=== PATIENT | male | born 1960 | race Caucasian/White ===

== ENCOUNTER 2023-11-24 12:12 | Outpatient (OUT) | payer OTHER, SELFPAY | END 2023-11-24 12:13 | disposition home or self-care (01) | LOC: WC 12:12 | PROVIDERS: PCP Internal Medicine; Visit Provider Podiatrist Foot & Ankle Surgery | DX: E11.621 Type 2 diabetes mellitus with foot ulcer (principal); L97.421 Non-pressure chronic ulcer of left heel and midfoot limited to breakdown of skin; R60.1 Generalized edema | CPT/HCPCS: 29580; G0463 ==

== ENCOUNTER 2024-07-30 11:22 | Emergency (ER) | payer MEDICARE, SELFPAY ==
[2024-07-30 11:30] VITALS: BP 129/71; PULSE 83; TEMP 36.7; O2SAT 99; BMI 33.9
--- NOTE | 2024-07-30 12:08 | ED_ITS ---
HPI HPI - General Adult General Chief complaint: Abdominal Pain Stated complaint: CONSTIPATION Time Seen by Provider: 07/30/24 12:00 Source: patient Mode of arrival: Wheelchair Limitations: physical limitation Limitations comment: L SIDED WEAKNESS, H/O STROKE History of Present Illness HPI narrative: Patient presents to the ED complaining of difficulty voiding and constipation. He was discharged from [facility] yesterday. He was admitted for 7 days and had an indwelling Diaz catheter which was removed by her prior to discharge. He has a history of enlarged prostate. He states that his kidney function is also abnormal. He does not have any information about his allergies or current medications and states that his has the paperwork with her whom he cannot find right now. Related Data Previous Rx's ?Medication ?Instructions ?Recorded cephalexin 250 mg capsule 250 mg PO BID 7 days #14 caps 07/30/24 polyethylene glycol 3350 17 17 g PO DAILY PRN constipation 07/30/24 gram/dose oral powder (Miralax) #510 grams Allergies Allergy/AdvReac Type Severity Reaction Status Date / Time metoprolol Allergy Unknown Unknown Verified 07/30/24 12:14 ciprofloxacin AdvReac Mild itching Verified 07/30/24 12:14 dapagliflozin (From Farxiga) AdvReac Mild itching Verified 07/30/24 12:14 Opioid HPI Opioid Management Most Recent Opioid Data: No Data to Display Review of Systems ROS Status of ROS 10 or more systems reviewed and unremark able except as noted in history and below PFSH PFSH Social History Little interest or pleasure in doing things: not at all Feeling down, depressed, or hopeless: not at all Exam Narrative Exam Narrative: Obese in appearance otherwise nondistressed. Vital signs are stable and are as documented. HEENT exam is normal to inspection. Neck is supple. Lung sounds are clear to auscultation bilaterally with good air entry. Heart has regular rate and rhythm. Abdomen is protuberant with tenderness and fullness over the suprapubic region. Bowel sounds are hypoactive. There is no organomegaly or fluid wave. Lower extremities warm and dry with 1+ pitting edema of the ankles. Constitutional Vital Signs, click to edit/add: Last Vital Signs Temp 98.0 F 07/30/24 11:30 Pulse 83 07/30/24 11:30 Resp 18 07/30/24 11:30 BP 129/71 07/30/24 11:30 Pulse Ox 99 07/30/24 11:30 O2 Del Method Room Air 07/30/24 11:30 Course Vital Signs Vital signs: Vital Signs Temperature 98.0 F 07/30/24 11:30 Pulse Rate 83 07/30/24 11:30 Respiratory Rate 18 07/30/24 11:30 Blood Pressure 129/71 07/30/24 11:30 Pulse Oximetry 99 07/30/24 11:30 Oxygen Delivery Method Room Air 07/30/24 11:30 Temperature 98.0 F 07/30/24 11:30 Pulse Rate 83 07/30/24 11:30 Respiratory Rate 18 07/30/24 11:30 Blood Pressure 129/71 07/30/24 11:30 Pulse Oximetry 99 07/30/24 11:30 Oxygen Delivery Method Room Air 07/30/24 11:30 Medical Decision Making MDM Narrative Medical decision making narrative: Bladder scan revealed large volume in the bladder. A Diaz catheter was inserted and patient instantly put out 6 over 700 cc of clear looking urine. He feels much better. CT scan of the abdomen pelvis is nondiagnostic for acute pathology. I do see a lot of radiodense stool in the colon and rectum. He was administered oral mag citrate followed by fleets enema and has had a large bowel movement and feels much relieved. Blood work showed a normal white count 7.6 with a hemoglobin of 10.8 which is his baseline. BUN is elevated at 75 and the creatinine elevated at 3.35. I was able to access his labs from his recent hospital admission and this is his baseline also. In fact these numbers are slightly better than what he was admitted to the hospital with. Urinalysis did not show signs of infection. I am placing the patient on Keflex to 50 mg twice a day for a week for prophylaxis and on MiraLAX. 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 He sees both of these physicians in [facility]. He may return anytime for worsening symptoms. He was sent home with an indwelling Diaz catheter. Lab Data Labs: Lab Results 07/30/24 07/30/24 Range/Units 13:32 14:00 WBC 7.6 (4.0-11.0) 10^3/uL RBC 3.48 L (4.70-6.10) 10^6/uL Hgb 10.8 L (14.0-18.0) g/dL Hct 32.0 L (42.0-54.0) % MCV 92.0 (80.0-94.0) fL MCH 31.0 (25.9-34.0) pg MCHC 33.8 (29.9-35.2) g/dL RDW 12.9 (11.0-15.0) % Plt Count 275 (150-450) 10^3/uL MPV 10.9 (9.5-13.5) fL Neut % (Auto) 66.2 (43.0-75.0) % Lymph % (Auto) 20.4 L (20.5-60.0) % [place] % (Auto) 10.9 (1.7-12.0) % Eos % (Auto) 1.6 (0.9-7.0) % Baso % (Auto) 0.4 (0.2-2.0) % Neut # (Auto) 5.0 (1.4-6.5) 10^3/uL Lymph # (Auto) 1.6 (1.2-3.8) 10^3/uL [place] # (Auto) 0.8 (0.3-0.8) 10^3/uL Eos # (Auto) 0.1 (0.0-0.7) 10^3/uL Baso # (Auto) 0.0 (0.0-0.1) 10^3/uL Abs Immat Gran (auto) 0.04 H (0.00-0.03) 10^3/uL Imm/Tot Granulo (auto) 0.5 (0.0-0.5) % Sodium 134 L (136-145) mmol/L Potassium 4.6 (3.5-5.1) mmol/L Chloride 94 L (98-107) mmol/L Carbon Dioxide 29.0 (21.0-32.0) mmol/L Anion Gap 15.6 BUN 75.0 H (7.0-18.0) mg/dL Creatinine 3.35 H (0.70-1.30) mg/dL Est GFR ( Amer) 23 L (>=60 mL/min/1.73m^2) Est GFR (Non-Af Amer) 19 L (>=60 mL/min/1.73m^2) BUN/Creatinine Ratio 22.4 Glucose 222 H (74-106) mg/dL Calcium 8.6 (8.5-10.1) mg/dL Total Bilirubin 0.4 (0.2-1.0) mg/dL Direct Bilirubin 0.1 (0.0-0.2) mg/dL AST 22 (15-37) U/L ALT 27 (16-63) U/L Alkaline Phosphatase 90 (46-116) U/L Total Protein 7.5 (6.4-8.2) g/dL Albumin 3.2 L (3.4-5.0) g/dL Globulin 4.3 g/dL Albumin/Globulin Ratio 0.7 Lipase 25.0 (16.0-77.0) U/L Urine Color Lt. yellow (YELLOW) Urine Clarity Clear (CLEAR) Urine pH 5.5 (5.0-9.0) Ur Specific Ralph <=1.005 A (1.005-1.025) Urine Protein Negative (NEG/TRACE) mg/dL Urine Glucose (UA) 500 A (NEGATIVE) mg/dL Urine Ketones Negative (NEGATIVE) mg/dL Urine Occult Blood Negative (NEGATIVE) Urine Nitrite Negative (NEGATIVE) Urine Bilirubin Negative (NEGATIVE) Urine Urobilinogen 0.2 (0.2-1.0) EU/dL Ur Leukocyte Esterase Negative (NEGATIVE) Discharge Plan Discharge Chief Complaint: Abdominal Pain Clinical Impression: Acute urinary retention Constipation Qualifiers: Constipation type: unspecified constipation type Qualified Code(s): K59.00 - Constipation, unspecified Chronic kidney disease Qualifiers: Chronic kidney disease stage: unspecified stage Qualified Code(s): N18.9 - Chronic kidney disease, unspecified Patient Disposition: Home, Self-Care Time of Disposition Decision: 17:04 Condition: Fair Mode of Transportation: Private Vehicle Prescriptions / Home Meds: New cephalexin 250 mg capsule 250 mg PO BID 7 Days Qty: 14 0RF polyethylene glycol 3350 [Miralax] 17 gram/dose powder 17 g PO DAILY PRN (Reason: constipation) Qty: 510 0RF Print Language: Urdu Instructions: Constipation (ED), Chronic Kidney Disease (ED), Diaz Catheter Placement and Care (ED) Additional Instructions: Follow-up with your urologist and gasoline catalyst operator within the next 2 or 3 days. Return anytime for worsening symptoms. Referrals: Kelby Warner DO [Primary Care Provider] - 1 week
[2024-07-30 13:48] LABS: Basophils Percent Auto 0.4 % (0.2-2.0); Eosinophils Absolute Auto 0.1 10^3/uL (0.0-0.7); Eosinophils Percent Auto 1.6 % (0.9-7.0); Hemoglobin 10.8 g/dL (14.0-18.0); Immature Granulocytes Abs Auto 0.04 10^3/uL (0.00-0.03); Immature Granulocytes Pct Auto 0.5 % (0.0-0.5); Lymphocytes Absolute Auto 1.6 10^3/uL (1.2-3.8); Lymphocytes Percent Auto 20.4 % (20.5-60.0); Mean Corpuscular HGB Conc 33.8 g/dL (29.9-35.2); Mean Platelet Volume 10.9 fL (9.5-13.5); Monocytes Absolute Auto 0.8 10^3/uL (0.3-0.8); Monocytes Percent Auto 10.9 % (1.7-12.0); Neutrophils Percent Auto 66.2 % (43.0-75.0); Platelet Count 275 10^3/uL (150-450); Red Blood Count 3.48 10^6/uL (4.70-6.10); Red Cell Distribution Width 12.9 % (11.0-15.0); White Blood Count 7.6 10^3/uL (4.0-11.0)
[2024-07-30 14:02] LABS: Alanine Aminotransferase 27 U/L (16-63); Albumin Globulin Ratio 0.7; Albumin Level 3.2 g/dL (3.4-5.0); Alkaline Phosphatase 90 U/L (46-116); Anion Gap 15.6; Aspartate Amino Transferase 22 U/L (15-37); BUN Creatinine Ratio 22.4; Bilirubin Direct 0.1 mg/dL (0.0-0.2); Bilirubin Total 0.4 mg/dL (0.2-1.0); Calcium 8.6 mg/dL (8.5-10.1); Chloride 94 mmol/L (98-107); Estimated GFR (African America 23 (>=60 mL/min/1.73m^2); Estimated GFR (Non-African Ame 19 (>=60 mL/min/1.73m^2); Globulin 4.3 g/dL; Glucose 222 mg/dL (74-106); Potassium 4.6 mmol/L (3.5-5.1); Sodium 134 mmol/L (136-145); Total Protein 7.5 g/dL (6.4-8.2)
[2024-07-30 14:09] LABS: Bilirubin Urine NEGATIVE (NEGATIVE); Blood Urine NEGATIVE (NEGATIVE); Clarity Urine CLEAR (CLEAR); Color Urine LT. YELLOW (YELLOW); Glucose Urine UA 500 mg/dL (NEGATIVE); Ketones Urine NEGATIVE (NEGATIVE); Leukocyte Esterase Urine NEGATIVE (NEGATIVE); Nitrite Urine NEGATIVE (NEGATIVE); Protein Urine NEGATIVE (NEG/TRACE); Specific Gravity Urine <=1.005 (1.005-1.025); Urobilinogen Urine 0.2 EU/dL (0.2-1.0); pH Urine 5.5 (5.0-9.0)
[2024-07-30 14:10] LABS: Urine Microscopic Indicated NO
[2024-07-30] MEDS: MAGNESIUM CITRATE 296 ML SOLUTION PO (15:27)
== END 2024-07-30 17:18 | disposition home or self-care (01) ==
PROVIDERS: Emergency Provider Emergency Medicine; PCP Internal Medicine
DX: K59.00 Constipation, unspecified (principal); N40.1 Benign prostatic hyperplasia with lower urinary tract symptoms; R33.9 Retention of urine, unspecified; N18.9 Chronic kidney disease, unspecified
CPT/HCPCS: 36415; 51702; 74176; 80048; 80076; 81003; 83690; 85025; 99285

== ENCOUNTER 2024-08-02 12:03 | Emergency (ER) | payer MEDICARE, SELFPAY ==
[2024-08-02 12:05] VITALS: BP 163/71; PULSE 73; TEMP 36.5; O2SAT 100; BMI 33.9
--- NOTE | 2024-08-02 12:11 | ED.GENADUL1 ---
HPI HPI - General Adult General Chief complaint: Urogenital-Male Stated complaint: URINARY RETENTION Time Seen by Provider: 08/02/24 12:04 History of Present Illness HPI narrative: 64-year male presents for pain at his urinary catheter site. This was placed 3 days ago because of urinary retention. The patient was supposed to see his urologist today, about an hour and a half ago, but did not go. He states he was having pain where the catheter enters his penis but that pain is better now. No fever or vomiting. Related Data Previous Rx's ?Medication ?Instructions ?Recorded cephalexin 250 mg capsule 250 mg PO BID 7 days #14 caps 07/30/24 polyethylene glycol 3350 17 17 g PO DAILY PRN constipation 07/30/24 gram/dose oral powder (Miralax) #510 grams solifenacin 5 mg tablet (Vesicare) 5 mg PO DAILY 10 days #10 tabs 08/02/24 Allergies Allergy/AdvReac Type Severity Reaction Status Date / Time metoprolol Allergy Unknown Unknown Verified 07/30/24 12:14 ciprofloxacin AdvReac Mild itching Verified 07/30/24 12:14 dapagliflozin (From Farxiga) AdvReac Mild itching Verified 07/30/24 12:14 Opioid HPI Opioid Management Most Recent Opioid Data: No Data to Display Review of Systems ROS Narrative A ten point review of systems is negative except as noted above. PFSH PFSH Social History Little interest or pleasure in doing things: not at all Feeling down, depressed, or hopeless: not at all Exam Narrative Exam Narrative: Nurses note and vital signs reviewed and patient is not hypoxic. General: The patient appears in no apparent distress. Skin: Warm, dry, no pallor noted. There is no rash noted. Head: Normocephalic, atraumatic Eye: Normal conjunctiva, no drainage Ears, Nose, Mouth, and Throat: oral mucosa is moist. Nares patent. Cardiovascular: Regular Rate and Rhythm Respiratory: Patient is in no distress, no accessory muscle use, lungs are clear to auscultation, no wheezing, rales or rhonchi GI: Soft and nontender. A few bruises are present from insulin injections : Diaz catheter is in place and is draining appropriately. There is no erythema of significance in the genital area. Musculoskeletal: The patient has no evidence of calf tenderness, no pitting edema, symmetrical pulses noted bilaterally Neurological: A&O, normal speech Psychiatric: Cooperative Constitutional Vital Signs, click to edit/add: Last Vital Signs Temp 97.7 F 08/02/24 12:05 Pulse 73 08/02/24 12:05 Resp 20 08/02/24 12:05 BP 163/71 H 08/02/24 12:05 Pulse Ox 100 08/02/24 12:05 O2 Del Method Room Air 08/02/24 12:05 Course Vital Signs Vital signs: Vital Signs Temperature 97.7 F 08/02/24 12:05 Pulse Rate 73 08/02/24 12:05 Respiratory Rate 20 08/02/24 12:05 Blood Pressure 163/71 H 08/02/24 12:05 Pulse Oximetry 100 08/02/24 12:05 Oxygen Delivery Method Room Air 08/02/24 12:05 Temperature 97.7 F 08/02/24 12:05 Pulse Rate 73 08/02/24 12:05 Respiratory Rate 20 08/02/24 12:05 Blood Pressure 163/71 H 08/02/24 12:05 Pulse Oximetry 100 08/02/24 12:05 Oxygen Delivery Method Room Air 08/02/24 12:05 Medical Decision Making MDM Narrative Medical decision making narrative: UA shows small amount of blood but no evidence of UTI. Renal function is improved even from a few days ago. The catheter is functioning normally and he is prescribed Vesicare. He will follow-up with his urologist. Treatment diagnosis and follow-up were discussed with the patient and his . The patient's states his urology appointment is tomorrow. Differential Diagnosis Differential Diagnosis: UTI, bladder spasm Lab Data Lab results reviewed: Yes I reviewed the patient's lab results Labs: Lab Results 08/02/24 08/02/24 Range/Units 12:13 12:18 WBC 6.4 (4.0-11.0) 10^3/uL RBC 3.50 L (4.70-6.10) 10^6/uL Hgb 10.7 L (14.0-18.0) g/dL Hct 32.2 L (42.0-54.0) % MCV 92.0 (80.0-94.0) fL MCH 30.6 (25.9-34.0) pg MCHC 33.2 (29.9-35.2) g/dL RDW 13.2 (11.0-15.0) % Plt Count 313 (150-450) 10^3/uL MPV 10.5 (9.5-13.5) fL Neut % (Auto) 60.2 (43.0-75.0) % Lymph % (Auto) 22.5 (20.5-60.0) % [place] % (Auto) 13.7 H (1.7-12.0) % Eos % (Auto) 2.5 (0.9-7.0) % Baso % (Auto) 0.6 (0.2-2.0) % Neut # (Auto) 3.9 (1.4-6.5) 10^3/uL Lymph # (Auto) 1.4 (1.2-3.8) 10^3/uL [place] # (Auto) 0.9 H (0.3-0.8) 10^3/uL Eos # (Auto) 0.2 (0.0-0.7) 10^3/uL Baso # (Auto) 0.0 (0.0-0.1) 10^3/uL Abs Immat Gran (auto) 0.03 (0.00-0.03) 10^3/uL Imm/Tot Granulo (auto) 0.5 (0.0-0.5) % Sodium 135 L (136-145) mmol/L Potassium 3.7 (3.5-5.1) mmol/L Chloride 99 (98-107) mmol/L Carbon Dioxide 27.6 (21.0-32.0) mmol/L Anion Gap 12.1 BUN 68.0 H (7.0-18.0) mg/dL Creatinine 2.35 H (0.70-1.30) mg/dL Est GFR ( Amer) 34 L (>=60 mL/min/1.73m^2) Est GFR (Non-Af Amer) 28 L (>=60 mL/min/1.73m^2) BUN/Creatinine Ratio 28.9 Glucose 132 H (74-106) mg/dL Calcium 8.4 L (8.5-10.1) mg/dL Urine Color Lt. yellow (YELLOW) Urine Clarity Sl cloudy (CLEAR) Urine pH 7.5 (5.0-9.0) Ur Specific [place] 1.010 (1.005-1.025) Urine Protein Trace (NEG/TRACE) mg/dL Urine Glucose (UA) >=1000 A (NEGATIVE) mg/dL Urine Ketones Negative (NEGATIVE) mg/dL Urine Occult Blood Large A (NEGATIVE) Urine Nitrite Negative (NEGATIVE) Urine Bilirubin Negative (NEGATIVE) Urine Urobilinogen 0.2 (0.2-1.0) EU/dL Ur Leukocyte Esterase Trace A (NEGATIVE) Urine RBC 50-75 A (0-2) #/HPF Urine WBC None seen (NONE SEEN) #/HPF Ur Squamous Epith Cells Rare (NONE/RARE) #/LPF Urine Crystals None seen (None Seen) #/HPF Urine Bacteria Trace A (NONE SEEN) #/HPF Urine Casts None seen (NONE SEEN) #/LPF Urine Mucus None seen (NONE SEEN) Discharge Plan Discharge Chief Complaint: Urogenital-Male Clinical Impression: Bladder spasms Patient Disposition: Home, Self-Care Time of Disposition Decision: 13:21 Condition: Good Mode of Transportation: Private Vehicle Prescriptions / Home Meds: New solifenacin [Vesicare] 5 mg tablet 5 mg PO DAILY 10 Days Qty: 10 0RF No Action cephalexin 250 mg capsule 250 mg PO BID 7 Days Qty: 14 0RF polyethylene glycol 3350 [Miralax] 17 gram/dose powder 17 g PO DAILY PRN (Reason: constipation) Qty: 510 0RF Print Language: Liberian Instructions: Diaz Catheter Placement and Care (ED) Referrals: Kelby Warner DO [Primary Care Provider] - 1 week
--- NOTE | 2024-08-02 12:28 | PC.NURSE ---
pt c/o pain at tip of penis, area appears wnl with no swelling or redness.
[2024-08-02 12:40] LABS: Basophils Percent Auto 0.6 % (0.2-2.0); Eosinophils Absolute Auto 0.2 10^3/uL (0.0-0.7); Eosinophils Percent Auto 2.5 % (0.9-7.0); Hematocrit 32.2 % (42.0-54.0); Hemoglobin 10.7 g/dL (14.0-18.0); Immature Granulocytes Abs Auto 0.03 10^3/uL (0.00-0.03); Immature Granulocytes Pct Auto 0.5 % (0.0-0.5); Lymphocytes Absolute Auto 1.4 10^3/uL (1.2-3.8); Lymphocytes Percent Auto 22.5 % (20.5-60.0); Mean Corpuscular HGB Conc 33.2 g/dL (29.9-35.2); Mean Corpuscular Hemoglobin 30.6 pg (25.9-34.0); Mean Platelet Volume 10.5 fL (9.5-13.5); Monocytes Absolute Auto 0.9 10^3/uL (0.3-0.8); Monocytes Percent Auto 13.7 % (1.7-12.0); Neutrophils Absolute Auto 3.9 10^3/uL (1.4-6.5); Neutrophils Percent Auto 60.2 % (43.0-75.0); Platelet Count 313 10^3/uL (150-450); Red Cell Distribution Width 13.2 % (11.0-15.0); White Blood Count 6.4 10^3/uL (4.0-11.0)
[2024-08-02 12:44] LABS: Anion Gap 12.1; BUN Creatinine Ratio 28.9; Calcium 8.4 mg/dL (8.5-10.1); Carbon Dioxide 27.6 mmol/L (21.0-32.0); Chloride 99 mmol/L (98-107); Estimated GFR (African America 34 (>=60 mL/min/1.73m^2); Estimated GFR (Non-African Ame 28 (>=60 mL/min/1.73m^2); Glucose 132 mg/dL (74-106); Potassium 3.7 mmol/L (3.5-5.1); Sodium 135 mmol/L (136-145)
[2024-08-02 12:48] LABS: Bilirubin Urine NEGATIVE (NEGATIVE); Blood Urine LARGE (NEGATIVE); Clarity Urine SL CLOUDY (CLEAR); Color Urine LT. YELLOW (YELLOW); Glucose Urine UA >=1000 mg/dL (NEGATIVE); Ketones Urine NEGATIVE (NEGATIVE); Leukocyte Esterase Urine TRACE (NEGATIVE); Nitrite Urine NEGATIVE (NEGATIVE); Protein Urine TRACE mg/dL (NEG/TRACE); Urobilinogen Urine 0.2 EU/dL (0.2-1.0); pH Urine 7.5 (5.0-9.0)
[2024-08-02 13:13] LABS: Bacteria Urine TRACE #/HPF (NONE SEEN); Cast Seen? NONE SEEN #/LPF (NONE SEEN); Crystals Seen? None Seen #/HPF (None Seen); Mucus Urine NONE SEEN (NONE SEEN); RBC Urine 50-75 #/HPF (0-2); Squamous Epithelial Cell Urine RARE #/LPF (NONE/RARE); WBC Urine NONE SEEN #/HPF (NONE SEEN)
[2024-08-02 13:50] VITALS: BP 124/49; PULSE 68; O2SAT 100
== END 2024-08-02 13:51 | disposition home or self-care (01) ==
PROVIDERS: Emergency Provider Emergency Medicine; PCP Internal Medicine
DX: N32.89 Other specified disorders of bladder (principal); R33.9 Retention of urine, unspecified
CPT/HCPCS: 36415; 51798; 80048; 81001; 85025; 99283

== ENCOUNTER 2024-08-31 13:00 | Outpatient (RCR) | payer MEDICARE, SELFPAY | END 2024-09-30 08:05 | disposition home or self-care (01) | LOC: PT 13:00 | PROVIDERS: PCP Internal Medicine; Visit Provider Internal Medicine | DX: M47.892 Other spondylosis, cervical region (principal); M54.12 Radiculopathy, cervical region; M62.81 Muscle weakness (generalized) | CPT/HCPCS: 97110; 97162; 97530 ==

== ENCOUNTER 2024-11-15 14:00 | Emergency (ER) | payer MEDICARE, SELFPAY ==
--- OUTSIDE RECORDS SUMMARY | 2024-08-29 05:56 | XMS_ITS | Encounter Summary ---
Author Name [facility] Address [address] [place] [address] Care Team Providers Care Teacher Home Therapy Name Role Phone CYNDI MIGUELEL Primary Care Provider Unavailabl e Insurance Providers: All historical and current Section Date Range: From patient's date of to the date document was created. This section includes the names of all active insurance providers for the patient. Insurance Provider Type of Coverage Plan Name Start of Policy Coverage End of Policy Coverage Group Number Member ID Insurance Provider's Telephone Number Policy Martinez's Name Patient's Relationship to Policy Martinez Selected Encounter This section includes the information on record at [facility] for the Encounter. Date/Time Encounter Type Encounter Description Reason Pro vider Source Aug 29, 2024 09:56 AM Outpatient Encounter ADMIN PAT ACTIVTIES (MASNONCT) I[facility] Encounter Template Text not used by [facility] Plan of Treatment: Future Appointments (+ 6 months) and Future Tests (+/- 45 days) The Plan of Treatment section includes future care activities for the patient from all [facility] treatment[facility]ilities. This section includes future appointments and future orders which are active, pending or scheduled. Active, Pending, and Scheduled Orders This section includes a listing of several types of active, pending, and scheduled orders, including clinic medications orders, diagnostic test orders, procedure orders and consult orders; where the start date of the order is 45 days before the date of the Encounter or 45 days after the date of theEncounter. The data comes from all [place] treatment facilities. Test Date/Time Test Type Test Details Facility Name September 25, 2024 12:00 AM Laboratory - Chemi stry Order COMPREHENSIVE METABOLIC PANEL LT GREEN PLASMA SP [facility] September 25, 2024 12:00 AM Laboratory - Chemi stry Order LIPID PROFILE LT GREEN PLASMA SP [facility] September 25, 2024 12:00 AM Laboratory - Chemi stry Order CBC LAVENDER BLOOD SP [facility] September 25, 2024 12:00 AM Laboratory - Chemi stry Order TSH LT GREEN PLASMA SP [facility] September 25, 2024 12:00 AM Laboratory - Chemi stry Order VITAMIN D (TOTAL) GOLD TOP SERUM SP [facility] September 25, 2024 12:00 AM Laboratory - Chemi stry Order URINALYSIS URINE SP [facility] September 25, 2024 12:00 AM Laboratory - Chemi stry Order MICROALBUMIN/CREATININE RATIO PANEL URINE, RANDOM SP [facility] September 25, 2024 12:00 AM Laboratory - Chemi stry Order HEMOGLOBIN A1C LAVENDER BLOOD SP [facility] Social History: Smoking Status (Most current) and Tobacco Use (All prior to encounter date) This section includes the most current, and the historical, smoking and tobacco- related health factors from the [place] facility where the Encounter took place. Current Smoking Status This section includes the most current smoking, or tobacco-related health factor, from the [place] facility where the Encounter took place. Date/Time Current Smoking Status Comment Facil ity Nov 12, 2022 02:00 PM VA-TOBACCO NEVER USED [facility] Encounter Notes: All associated encounter notes This section contains the clinical notes associated to the Encounter. Date/Time Encounter Note(s) Provider Source Aug 29, 2024 09:56 AM ADMINISTRATIVE NOT E: LOCAL TITLE: SCHEDULING CONTACT ATTEMPT NOTE STANDARD TITLE: ADMINISTRATIVE NOTE DATE OF NOTE: AUG 29, 2024@09:56 ENTRY DATE: AUG 29, 2024@09:57:08 AUTHOR: PENG VANEGAS EXP COSIGNER: URGENCY: STATUS: COMPLETED A scheduling contact attempt was made on 08/29/2024 via telephone for a Return to Clinic Order appointment in the Primary Care clinic. The patient declined to schedule. /lion/ PENG VANEGAS ADVANCED MSA Signed: 08/29/2024 09:57 PENG VANEGAS
--- OUTSIDE RECORDS SUMMARY | 2024-10-14 13:00 | XMS_ITS ---
Author Organization [facility] Address [address] [place] [address] Care Team Providers Care Document Advisor Name Role Phone christine rae Primary Care Provider Harrison Mcdermott Unavailable [phone] Encounters Encounter Location Date Provider Diagnosis [facility] [address] [place] [address] 10/14/2024 Harrison Beltran Plan Of Treatment Next Appt Details Provider Name:Pankajbailey Ignacio, 12/09/2024 02:30:00 PM, [address] [facility] [address], [place], [address], Progress Notes * Sivakumar KERROB:1960 (64 yo M)Acc No.[id number]:10/14/2024 Progress Notes Patient: Piotr ROBERTS Provider: Winston Beltran DO :1960 A ge:64 Y S ex:Male Date:10/14/2024 Address:[address] [place] [address] [address] [facility] Pcp:christine rae Subjective: * Chief Complaints: * * Medical History: Objective: * Vitals: Assessment: Plan: * Treatment: * * Electronic signature of Verona Beltran DO on 11/15/2024 at 02:12 PM EDT Sign off status: Pending * Provider: Winston Beltran DO Date: 0 10/14/2024 Generated for Amanda rogers/Falashellg/eTransmitting on: 0 11/15/2024 02:12 PM EDT
--- OUTSIDE RECORDS SUMMARY | 2024-11-09 08:25 | XMS_ITS | Continuity of Care Document ---
Author Name [facility] Organization [facility] Care Team Providers Care Aed Trainer Name Role Phone [facility] Unavailable Unavailable Problems Combined list of problems from Department of [facility] and [facility] facilities. It does not include entries that were removed or entered in error. Problem Status Onset Date Problem Type Date of Resolution Comments Source Chronic kidney disease stage 3 Active Condition [facility] Coronary artery disease Active Condition Nov 12, 2022 Entered By: KOLTON GRIGSBY R Comment: s/p alexa x 3 [facility] Diabetes mellitus Active Condition [facility] Essential hypertension Active Condition [facility] Exposure to Potentially Hazardous Substance (SCT [id number]) Active Condition LUMA Lucero [facility] History of cerebrovascular accident Active Condition [facility] Hyperlipidemia Active Condition [facility] Lower urinary tract symptoms due to benign prostatic hypertrophy Active Condition [facility] Diagnosis: ICD-10-CM Z71.9 Counseling, unspecified Active Diagnosis [facility] Allergies, Adverse Reactions, Alerts Combined list of allergies from Department of Defense and [facility] facilities. It does not include entries that were removed or entered in error. Substance Category Reaction Severity Reaction type Status Date Reported Comments Source CIPROFLOXACIN Propensity to adverse reactions to drug (finding) Tongue swelling MILD active 3 [facility] Immunizations Combined list of available immunizations from the Department of Defense and Veterans Affairs facilities. Immunization Series Date Given Administered By Site Reaction Lot Number CVX Code Drug Clinical Pharmacy Specialist Status Comments Source TDAP 2022 JILL RAMEY RIGHT DELTO ID [id number] complet ed [facility]MIN[facility] [place], Patient tolerated injection well. [facility] Encounters Combined list of: 1) Encounters from Department of Veterans Affairs facilities going backup to the last 18 months, not all [place] inpatient encounters are included; 2) Encounters from the Department of Defense facilities going backup to 280 months. Location Location Details Encounter Type Encounter Number Reason For Visit Attending Provider ADM Date DC Date Status Disposition Source [facility] HC PRO PHONE CALL 21-30 MIN [id number] Diagnos is: ICD-10- CM Z71.9 Information Technology Security Manager ing, unspeci JONA Mahan K 06/11 [facility] Outpatient Encounter [id number] 11/05 [facility] Outpatient Encounter [id number] 11/15 [facility] Outpatient Encounter [id number] 08/18 [facility] Outpatient Encounter [id number] 08/29 MIREILLE Thompson [facility] Social History Combined list of available smoking, tobacco, and other social history from Department of Defense and Veterans Affairs facilities. Social History Type Response Date Comment Sourc e Tobacco smoking status [facility] NEVER USED 11/13/19 23 [facility] Plan of Care List of future care activities from Department of Veterans Affairs facilities. Additional future care activities may be listed in the Assessment and Plan section. Date/Time Care Activity Care Activity Detail Facili ty 09/25/2024 Laboratory - Chemistry Order COM PREHENSIVE METABOLIC PANEL LT GREEN PLASMA SP ONCE [facility]
--- OUTSIDE RECORDS SUMMARY | 2024-11-11 10:15 | XMS_ITS ---
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 Inspector Name Role Phone kyra christine Primary Care Provider Harrison Mcdermott Unavailable [phone] Hallie Carranza Unavailable [phone] REASON FOR VISIT Telehealth visit Medications Medication SIG (Take, Route, Frequency, Duration) Notes Start Date End Date Status Spironolactone 50 mg TAKE ONE TABLET BY MOUTH DAILY for 30 Active Plavix 75 MG 1 tablet Orally Once a day Active Pravastatin Sodium 10 MG 1 tablet Orally Once a day Active Magnesium 250 MG 1 tablet with a meal Orally Once a day for 30 day(s) Not-Taking Magnesium Oxide 400 MG 1 tablet as neede d Orally Once a day Not-Taking Carvedilol 12.5 MG 1 tablet with food Orally Twice a day Active Lasix 40 MG 1 tablet Orally twic e a day for 30 days Active Losartan Potassium 25 MG 1 tablet Orally Once a day for 90 days Active HumaLOG KwikPen 100 UNIT/ML as directed Subcutaneous Active Jardiance 25 MG 0.5 tablet in the morning Orally Once a day for 30 days Active Allopurinol 100 MG 1 tablet Orally twic e a day for 90 days Active Aspirin 81 81 MG 1 tablet Orally Once a day Active traMADol HCl 50 MG 1 tablet as needed Orally every 8 hours Not-Taking Magnesium Gluconate 500 (27 Mg) MG 1 tablet Orally Once a day Active Zinc 50 MG 1 tablet Orally Once a day Not-Taking Protonix 20 MG 1 tablet 1/2 to 1 hour before morning meal Orally Once a day for 30 day(s) Not-Taking Sensipar 60 MG 1 tablet with food o r after a meal Orally 5 times a week for 90 days Not-Taking Pepcid 20 MG 1 tablet at bedtime Orally Once a day Not-Taking Probiotic Not-Taking Nitroglycerin 0.4 MG as directed Sublingual Not-Taking Losartan Potassium-HCTZ 50-12.5 MG 1 tablet Orally Once a day for 30 days 12/12/2022 Not-Taking Flomax 0.4 MG 1 capsule Orally twice a day Not-Taking Multiple Vitamins-Minerals - as directed Orally No t-Taking metOLazone 2.5 MG 1 tablet Orally Thre e times a week for 30 days 07/15/2024 11/12/2024 Not-Taking MiraLax 17 GM 1 packet mixed with 8 ounces of fluid Orally Once a day Not-Taking Entresto 24-26 MG 1 tablet Orally Twic e a day for 30 day(s) Not-Taking Calcitriol 0.5 MCG 1 capsule Orally Onc e a day for 30 day(s) Not-Taking Cholecalciferol 125 MCG (5000 UT) as directed Orally Not-Takin g Ascorbic Acid 1000 MG 1 tablet Orally On ce a day Not-Taking Bumetanide 2 MG 1 tablet Orally Twic e a day for 90 days 07/15/2024 01/11/2025 Not-Taking Toujeo SoloStar 300 UNIT/ML as directed Subcutaneous twice a day 30u Active Vitamin C 500 MG as directed Orally Active Alpha Lipoic Acid 200 MG 1 capsule Orall y Once a day 600 mg Not-Taking Vitamin B12 100 MCG 1 tablet Orally once a day Active Encounters Encounter Location Date Provider Diagnosis [address] 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 Will continue with Aldactone 50mg, Coreg 12.5mg BID, Losartan 25mg, and Lasix 40mg BID. Continue Jardiance 12.5mg daily. 09/23/2024- - Resolved NEO and resumed Aldactone 50mg, Coreg 12.5mg BID; Flomax 0.4mg BID, Losartan 25mg from 100mg dosage; resumed Lasix 40mg BID from 80mg and resumed Jardiance 12.5mg dosage with resolved AKI__from 25mg daily. . 08/26/24- - - -Resolved NEO and resumed Losartan 25mg home 100mg dosage; resumed Lasix 40mg home dosage of 80mg and resumed Jardiance 10mg dosage with resolved NEO. 07/08/24- - Patient is normotensive in office with readings of 122/72. Patient reports normotensive readings at home. Will continue with coreg 6.25mg BID, entresto 24-26mg BID, lasix 80mg BID, losartan 100mg daily and aldactone 50mg daily. Will start metolazone 5mg x 3 days. Continue to monitor blood pressure at home. 07/01/24- - Patient is normotensive in office with readings of 137/68. Patient reports normotensive readings at home. Will continue with coreg 6.25mg BID, entresto 24-26mg BID, lasix 80mg BID, losartan 100mg daily and aldactone 50mg daily. Will start metolazone 5mg x 3 days. Continue to monitor blood pressure at home. 05/13/24- - Patient is normotensive in office with readings of 120/56. Patient reports normotensive readings at home. Will continue with present treatment. 04/08/24__- Patient is normotensive in office with readings of 135/61. Patient reports normotensive readings at home. Will continue with Entresto 24/26mg daily__from cardiology and off his Losartan 100mg daily but continue Lasix 80mg BID. 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 . 01/01/24__- Patient is normotensive in office with readings of 132/63. Patient reports normotensive readings at home. Will continue with Losartan 100mg daily and Lasix 80mg daily. 10/02/23 -n office blood pressure 129/82. Normotensive home blood pressure readings. Plan to continue with Losartan 100mg daily and Lasix 80mg daily. 07/03/23__In office blood pressure 148/84. Normotensive home blood pressure readings. Plan to increase his Losartan from 50mg to 100mg daily and Lasix 80mg daily. 05/15/23__In office blood pressure 130/62 . Continue losartan 50 mg daily. Will stop HCTZ due to hypercalcemia. On discontinuation of the hydrochlorothiazide, plan to increase patient's Lasix to 80 mg daily and fluid restriction to 48 ounces a day. 03/20/23__In office blood pressure 189/84. Manual 142/82. Patient has discontinued lasix due to side effects. Will continue losartan 50 mg and restart HCTZ and increase to 25 mg daily. Advised to monitor home blood pressue at home. 02/13/23__-In office blood pressure 123/68. Manual 115/62. Home blood pressure logs are reviewed and uncertain of the validity. Will continue losartan 50 mg daily. Discontinue HCTZ 12.5 mg and increase Lasix 40 mg daily due to 2+ pitting edema to the bilateral lower extremities. Continue to monitor home blood pressure readings. 12/12/22____-Blood pressure readings in the office today was 152/83. Plan to initiate treatment with use of Losartan Hydrochlorothiazide- 5012.5mg 1 tablet daily along with reduction in patient's Lasix to 20mg and discontinue with Amlodipine 5mg. 11/14/22____Blood pressure readings in the office today was 138/68. Goal recommendations of less than 2gms a day sodium diet. Patient education on the significance of management of hypertension, and its effect on sustaining or contributing to the decline in the residual renal function. Monitor home blood pressure, with goal range of systolic readings of 110 to 130 and diastolic readings of 60 to 80. 11/11/2024 Primary hyperparathyroidism (ICD-10 - E21.0) 11/11/2024- - Ca 10.0, iPTH 164.0. Pt's reports patient did not scheduled appt with Dr. Ferrara when his office called because they have been too busy. Encouraged to call office back and schedule consult after education provided. Plan to continue to closely trend Ca level as patient is no longer on sensipar since NEO. Continue to avoid all calcium supplementation and vitamin D as well as follow a low Ca diet. 09/23/2024- - Ca 11.0, iPTH 120. Refer to Dr. Ferrara for Parathyroidectomy. He failed Sensipar and developed NEO from it. 08/26/24- - - - Resolved severe admission NEO secondary to pre-renal azotemia and Sensipar induced ATN. Patient with a presenting Cr of >4, and uremic symptoms. Labs for today's visit of UPCR, iPTH, and Uric acid not calculated for visit. Ca 10.5, Alb 4.2, Phos 2.4. Will disocntinue with Calcitriol 0.25mcg 3x/week as calcium level was increased. 07/08/24- - - Ca 10.5 iPTH __no lab__. Will decrease sensipar to 60mg 5/week. Contiue off calcitriol at this time. 07/01/24- - - Ca 8.4, iPTH 182. Will decrease sensipar to 60mg 5/week. Contiue off calcitriol at this time. 05/13/24- - -iPTH 166.0, Ca 9.6. Plan to increase frequency of Sensipar 30mg daily to 60mg daily for better management of his iPTH. Disccontinue with Calcitriol 0.25mcg 4x/week 04/08/24____-iPTH 206.0, Ca 11.0. Plan to increase frequency of Sensipar 30mg daily to 60mg daily for better management of his iPTH. Disccontinue with Calcitriol 0.25mcg 4x/week 01/01/24____IPTH 242.0, Ca 10.4. Plan to increase frequency of Sensipar 30mg daily to 60mg daily for better management ofhis iPTH. Continue with Calcitriol 0.25mcg 4x/week. 270lbs from 289bs weight today and patient same weight as last 3 months. 10/02/2023____IPTH 174, Ca 9.4. Plan to increase frequency of Sensipar 30mg from 5x/week to daily, and continue with Calcitriol 0.25mcg but increase frequency from 2X to 4x/week. 289bs weight today and patient same weight as last 3 months. Patient with cellulitis on presentation today with skin abrasion on his left foot and plan to start Keflex 500mg BID for 7days. Instructions to clean site withvbetadine and follow up with his PCP. . 07/03/23__IPTH 117.9, Ca 8.7. Continue Sensipar 30mg but reduce from daily to 5x/week and start Calcitriol 0.25mcg 2X week. 36lbs weight gain from his initial evaluation weight. 05/15/23__iPTH 225.0, Ca 11.0. Denies use of Sensipar due to side effects. Was on Lasix 60mg and HCTZ 25mg daily__- medication reconciliation and discussed with the patient the significance of improved management of the hypercalcemia due to the high risk of atherosclerotic disease, nephrolithiasis, and eventual risk of renal failure with hypercalcemia. Medication reconciliation and plan to discontinue the hydrochlorothiazide increase patient's Lasix to 80 mg resume Sensipar 30 mg daily reevaluate patient's intact PTH and calcium level in the next 6 weeks. 03/20/23__iPTH 202.5, Ca 10.4. Admits that he stopped taking the Sensipar due to excessive diarrhea occuring after the first dose. 02/13/23____Dscussed with patient recomendation for treatment with Sensipar 30mg daily and re-eal in 4 weeks. His iPTH level is 151 today in office. 12/12/22____ Differential for elevated iPTH level of 164 with a Ca level of 11.1. Etiology of hypercalcemia could be from FHH; primary hPTH; [place] or malignancy. Plan to obtain a nuclear scan of patient's parathyroid glands to determine hyperactivity of the glands. Plan also to monitor her urine electrolyte level to determine patient's urine calcium excretion. Treatment at this time with complete discontinuation of any vitamin D, dietary education of a low calcium, and plan to initiate treatment with Sensipar on return to clinic after diagnostic studies. 11/11/2024 Electrolyte abnormality (ICD-10 - E87.8) 11/11/2024- - Na 137, K 4.7, Cl 102, CO2 23, Phos 3.2, Ca 10.0, Mg 1.9. Continue with Allopurinol 200mg daily, lasix 40mg BID, magnesium 400mg daily, and aldactone 50mg daily. Continue to follow a low Ca diet. 09/23/2024- - Na 135, K 4.5, Cl 99, CO2 24, Phos 2.5, Ca 11.0, Mg 2.2. Continue with Allopurinol 200mg daily, lasix 40mg BID, magnesium 400mg daily, and aldactone 50mg daily 08/26/24- - - -Na 137, K 4.9, Cl 103, CO2 24, Phos 2.4, ca 10.5, Glu 147. 08/26/24- Mg 2.2, Na 137, K 4.9, Cl 103, Co2 24, Ca 10.5, Alb 4.2, Phos 2.4. No uric acid with visit. Continue with allopurinol 200mg daily, lasix 80mg BID, magnesium 400mg daily, and aldactone 50mg daily 07/01/24- - Mg 1.7, Ca 8.4, albumin 4.0, Phos 3.1, Na 136, K 4.7, Cl 99, Co2 26, Uric acid 7.0. Will continue with allopurinol 200mg daily, lasix 80mg BID, magnesium 400mg daily, and aldactone 50mg daily .Will decrease sensipar to 60mg 5/week and start metolazone 5mg x 3 days to assist with hypervolemia. 05/13/24- -Na 139, K+ 3.4, Cl 95, Co2 29, Ca 9.6, Phos 2.1, Mg 1.6, and uric acid 13.2. Encourage 2 gram sodium diet, higher dietary phosphorus and continue allopurinol 100mg daily. 04/08/24- - Na 136, K+ 3.7 Cl 98 Co2 27 Ca 11.0 Phos 1.8 Mg 1.6 and uric acid 7.6. Encourage 2 gram sodium diet, higher dietary phosphorus and continue allopurinol 100mg daily. 01/01/24- - Na 138, K+ 4.4 Cl 102 Co2 25 Ca 10.4 Phos 2.4 Mg 2.1 and uric acid 5.9. Encourage 2 gram sodium diet, higher dietary phosphorus and continue allopurinol 100mg daily. 10/02/2023- Na 136, K+ 4.2 Cl 101 Co2 24 Ca 9.4 Phos 2.5 Mg 2 and uric acid 6.7. Encourage 2 gram sodium diet, higher dietary phosphorus and continue allopurinol 100mg daily. 07/03/23- Na 135, K+ 4.3, Cl 100, Co2 25, Ca 8.7, Phos 2.5, Mg 1.9 and uric acid 6.8. Encourage 2 gram sodium diet, higher dietary phosphorus and continue allopurinol 100mg daily. 05/15/23- Uric acid 10.0. Start allopurinol 100mg daily 11/11/2024 CHF (congestive hear t failure) (ICD-10 - I50.9) 11/11/2024- - Denies increase to BLE edema. Reports weight today at hospital of 260lbs. Will continue lasix 40mg BID and Aldactone 50mg daily. K 4.7 09/23/2024- - - +2/4 LE edema in BLE. Will continue lasix 40mg BID, and Aldactone 50mg daily. K 4.5. 08/26/24- - - - +2/4 LE edema in BLE. Will continue lasix 80mg BID, entresto 24-26mg BID, and aldactone 50mg daily. K 4.7. 07/01/24- - +2 edema in BLE. Will continue lasix 80mg BID, entresto 24-26mg BID, and aldactone 50mg daily. K 4.7, will start metolazone 5mg daily x 3 days and repeat labs and follow up in 1 week. 05/13/24__-Continue lasix 80 mg daily, FR 48 ounces and daily weight. Patient to take Lasix 80mg BID for better edema management. 04/08/24__-Continue lasix 80 mg daily, FR 48 ounces and daily weight. Patient to take Lasix 80mg BID for better edema management. 01/01/24____Continue lasix 80 mg daily, FR 48 ounces and daily weight. Patient to take Lasix 80mg and 40mg for weight above 280lbs. 10/02/2023__Continue lasix 80 mg daily, FR 48 ounces and daily weight. Patient to take Lasix 80mg and 40mg for weight above 280lbs. 07/03/23__Continue lasix 80 mg daily, FR 48 ounces and daily weight. Patient to take Lasix 80mg and 40mg for weight above 280lbs. 05/15/23____ Will stop HCTZ due to hypercalcemia. Failed attempt with lasix. ncrease patient's Lasix to 80 mg daily and fluid restriction to 48 ounces a day. 9/22/23__Will stop combination losartan -HCTZ and continue losartan 50 mg daily and increase lasix 40mg daily due to increased edema to the bilateral lower extremities. FR 48 ounces and daily weight. 12/12/22____-use of losartan hydrochlorothiazide- 5012.5mg 1 tablet daily along with reduction in patient's Lasix to 20mg and continue with amlodipine 5mg. 11/14/22____ Review of records with evidence of patient with coronary artery disease with CHF and associated cardiorenal effect. Discussed with patient plans for optimization of patient's renal function and its resultant benefit and expected improvement of cardiac function. Monitor patient's dietary intake and fluid intake as well as monitor patient's urinary output. Plan for increased diuresis; fluid management and restriction of fluid intake to 48oz daily, as well as salt dietary intake of less than 2000mg daily, and daily weighing to determine dosage of diuretic needed for that day. 11/11/2024 Diabetes mellitus type 2 with complications (ICD-10 - E11.8) 11/11/2024- - Glucose at time of lab draw 183. Continue with strict glucose management and monitoring. Continue diabetic diet. 09/23/2024- - Glucose at time of draw 169. Recommendation for a goal hemoglobin A1c of less than 6.5, strict blood sugar ranges of 80 to 120. Patient instructed to continue with routine follow up with their primary care physician for management of diabetes. Patient compliance also discussed with patient and its effect on renal prognosis. 07/08/24__- Glucose at time of lab draw 147. Continue with strict glucose management and monitoring. Continue diabetic diet. 07/01/24- - Glucose at time of lab draw 108. Continue with strict glucose management and monitoring. Continue diabetic diet. 05/13/24- - Glucose at time of lab draw 150. Continue with strict glucose management and monitoring. Continue diabetic diet. 04/08/24__-Glucose at time of lab draw 195. Continue with strict glucose management and monitoring. Continue diabetic diet. 01/01/24__- Glucose at time of lab draw 147. Continue with strict glucose management and monitoring. Continue diabetic diet. 10/02/2023__- Glucose at time of lab draw 164. Continue with strict glucose management and monitoring. Continue diabetic diet. 05/15/23__- Glucose at time of lab draw 183. Continue with strict glucose management and monitoring. Continue diabetic diet. 12/12/22____ Recommendation for a goal hemoglobin A1c of less than 6.5, strict blood sugar ranges of 80 to 120. Patient instructed to continue with routine follow up with their primary care physician for management of diabetes. Patient compliance also discussed with patient and its effect on renal prognosis. Manifestations of renal disease from diabetes associated with the renal disease. Dietary recommendations to be further discussed with patient's primary physician, with recommendations for a strict ADA 2000calorie diet. 11/11/2024 Chronic kidney disease, stage 3a (ICD-10 - N18.31) 11/11/2024- - Patient with eGFR of 49ml/min from prior 34ml/min consistent with CKD stage 3a. Patient with a urine protein of <6, Uric acid 4.8, iPTH 164.0, Ca 10.0 from prior 11.0, Albumin 4.1, Phos 3.2. Pt's reports patient did not scheduled appt with Dr. Ferrara when his office called because they have been too busy. Encouraged to call office back and schedule consult after education provided. Patient had amputation of great R toe this morning and is on keflex for 14 days. Plan to continue to closely trend Ca level as patient is no longer on sensipar. Continue to avoid all calcium supplementation and vitamin D as well as follow a low Ca diet. 09/23/2024- - Patient with eGFR 34ml/min from 48ml/min consistent with CKD stage 3b. UPCR 0.16g/g, [id number], Uric Acid 5.3, Ca 11, Albumin 4.0, Phos 2.5. Resolved severe admission NEO secondary to pre-renal azotemia and Sensipar induced ATN. Patient with a presenting Cr of >4, and uremic symptoms__was not started on dialysis. Labs for today's visit of UPCR, iPTH, and Uric acid not calculated for visit. Ca 10.5, Alb 4.2, Phos 2.4. Will discontinue with Calcitriol 0.25mcg 3x/week as calcium level was increased. 08/26/24__Patient with eGFR 48ml/min from 29ml/min consistent with CKD stage 3A. Resolved severe admission NEO secondary to pre-renal azotemia and Sensipar induced ATN. Patient with a presenting Cr of >4, and uremic symptoms. Labs for today's visit of UPCR, iPTH, and Uric acid not calculated for visit. Ca 10.5, Alb 4.2, Phos 2.4. Will discontinue with Calcitriol 0.25mcg 3x/week as calcium level was increased. Resolved NEO and resumed Losartan 25mg__from home 100mg dosage; resumed Lasix 40mg__from home dosage of 80mg and resumed Jardiance 10mg dosage with resolved NEO. Continued treatment of [place], without Cinacalcet 30mg daily, and also discontinue with Calcitriol 0.5mcg daily but continue with hyper-phosphatemia treatment with Phoslo 667mg qac. 07/01/24- - eGFR 39ml/min from 26ml/min which is consistent with CKD Stage 3B. UPCR 0.11g/g, Uric acid 7.0, iPTH 182. ca 8.4, albumin 4.0, phos 3.1. Will decrease Sensipar to 60mg 5/week from daily as calcium level has decreased and intact PTH has increased. +2 edema in BLE. Will continue with Lasix 80mg BID, Entresto, and Aldactone 50mg daily. K 4.7. Will start metolazone 5mg x 3 days. 05/13/24- - Patient with eGFR of 26ml/min from prior 34ml/min consistent with CKD stage 4. Patient with a Uric acid 13.2, iPTH 166, Ca 8.8 from 9.6, Albumin 4.1, Phos 2.4__increase in diary product, K 2.3- - start Aldactone 50mg daily__continue with Lasix 80mg and Entresto and Jardiance meds. , Patient was recently admitted to [facility] for peripheral vascular disease and had stenting to his left femoral vessel. Bilateral lower extremity edema with management at this time plan for introduction of spironolactone 50 mg daily along with patient's furosemide 80 mg to help with his +3/4 edema. Medication reconciliation and plan to increase allopurinol from 100 mg to 200 mg daily. 04/08/24__- Patient with eGFR of 47 ml/min from prior 48 ml/min consistent with CKD stage 3A. Patient with a Uric acid 7.6, iPTH 206, Ca 11.0, Albumin 4.2, Phos 1.8. Plan to increase frequency of Sensipar 60mg daily for better management of his iPTH and Ca. Discontinue with Calcitriol 0.25mcg 4x/week medication and continue with only above Sensipar. .He was on Tums medication recently which accounts for his hypercalcemia. 01/01/24____ Patient with eGFR of 48 ml/min from prior 44 ml/min consistent with CKD stage 3A. Patient with a UPCR 0.11 g/g, Uric acid 5.9, iPTH 242, Ca 10.4, Albumin 3.9, Phos 2.4. 10/02/2023__Patient with eGFR of 44ml/min from prior 56ml/min consistent with CKD stage 3B. Patient with iPTH level of 174, a UPCR of 0.25g/g. Uric acid 6.7. . 07/03/23__Patient with eGFR of 56ml/min from prior 42ml/min consistent with CKD stage 3A. Patient with iPTH level of 117.9 and a UPCR of 0.54g/g. Uric acid 6.8. Patient is 36lbs weight gain from his initial evaluation weight. Plan to increase his Losartan from 50mg to 100mg daily 05/15/23__Patient with eGFR of 42ml/min from prior 56ml/min consistent with CKD stage 3B. Patient with iPTH level of 225 and a UPCR of 0.34g/g. Uric acid 10.0. Ca 11.0. Will start allopurinol 100mg daily. unable to take Sensipar due to side effects. Will stop HCTZ and start bumex 03/20/23__Patient with eGFR of 56ml/min from prior 60ml/min consistent with CKD stage 3A. Patient with iPTH level of 202.5 and a random urine protein 27mg/dL. Uric acid 7.5 02/13/23__No renal panel with today's lab work. Ordered for next appointment 12/12/22____ Chronic kidney disease with eGFR of 60ml/min with Cystatin eGFR of 41ml/min. 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 Initial recommendations to work on exercise and weight loss. Patient instructions to avoid non-steroidal medications and nephrotoxins, due to their detrimental effects on the kidneys. Labs reviewed with patient and instructions on continued renal improvement provided. Discussed with the patient the aim of sustaining their residual renal function, based on the following: A) Goal of blood pressure of less than 130/80mmHg B) Tight glycemic control with goal A1c less than 6.5 C) Goal urine protein excretion of less than 0.3g/g D) Treat metabolic acidosis with goal serum bicarbonate of greater than 20 E) Keep Phos level between 3.5 - 5.5mg/dl F) Goal LDL of less than 100mg/dl G) Goal of keeping uric acid level less than 6.5mg/dl H) Maintain a 2gm sodium diet I) Avoid nephrotoxic medications with education provided about NSAIDS and their detrimental effects on renal function 11/11/2024 Other Plan Of Treatment Pending Test Test Name Order Date Phosphorus, Serum 11/11/2024 Uric Acid, Serum 11/11/2024 Magnesium, Serum 11/11/2024 Renal Panel (10) 11/11/2024 CBC 11/11/2024 Parathyroid Hormone Intact 11/11/2024 Urinalysis with Culture if indicated Urine Protein Creatinine Ratio 5 Next Appt Details Follow Up: 4 Weeks, 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 Telehealth visit. * HPI: C onstitutional: This is a 64-year-old male who presents to [facility], referred by his PCP, for renal insufficiency management; Cerebrovascular accident (CVA)--06/2021, affecting his left side; Chronic pain; COVID-19--06/05/2021; Essential hypertension--since the past 20 years; H/O heart artery 3 stents; Obstructive sleep apnea on CPAP; Type 2 diabetes mellitus without complication (HCC)-since the past 40 years. Past surgical history of ANGIOPLASTY- -06/03/2021; cardiac PCI- -2020; CARDIAC CATHETERIZATION 05/29/2021- -Dr Mars/[facility]/right radial-Severe three vessel coronary artery disease involving a 90% proximal RCA stenosis, a 70% distal RCA stenosis, a 100% probably chronic total occlusion of a OM1 that has a long stent in the proximal vessel mid 90% stenosis in the left anterior descending coronary artery. Consult interventional cardiology for angioplasty and/or stenting; CARDIAC CATHETERIZATION- - 09/09/2021; SYLVIA mid LAD; LASER OF PROSTATE W/ GREEN LIGHT PVP 07/15/2022; CYSTOSCOPY TRANSURETHRAL RESECTION PROSTATE LASER-PVP GREENLIGHT- Dr. Ferrer; LYMPH NODE DISSECTION Right 1966; TURP N/A 07/15/2022; CYSTOSCOPY TRANSURETHRAL RESECTION PROSTATE LASER-PVP GREENLIGHT performed by Akira Ferrer MD at [facility] OR . . . . . . . . I nterim History: 11/11/2024--- Patient and his presents via telehealth for CKD F/U. Patient denies any recent hospitalizations or acute illness. Denies steroid or antibiotic usage recently. Denies recent falls or injuries. Patient denies chest pain, abdominal pain, nausea, vomiting or diarrhea. Patient denies worsening to edema at home. Denies shortness of breath or difficulty breathing. Patient reports stable blood pressure at home without lightheadedness or dizziness.? 09/23/2024--- Patient presents to the office today for CKD F/U. Patient denies any recent hospitalizations or acute illness. Denies steroid or antibiotic usage recently. Denies recent falls or injuries. Patient denies chest pain, abdominal pain, nausea, vomiting or diarrhea. Patient denies edema or worsening to edema at home. Denies shortness of breath or difficulty breathing. Patient reports stable blood pressure at home without lightheadedness or dizziness. 08/26/2024--- Patient presents to the office today for CKD F/U post hospitalization. Patient was admitted to on for . Discharged to . Denies recent falls or injuries since hospital discharge. Patient denies chest pain, abdominal pain, nausea, vomiting or diarrhea. Patient denies edema or worsening to edema at home. Denies shortness of breath or difficulty breathing. Patient reports stable blood pressure at home without lightheadedness or dizziness. 07/15/2024--- Patient presents to the office today for CKD F/U. Patient denies any recent hospitalizations or acute illness. Denies steroid or antibiotic usage recently. Denies recent falls or injuries. Patient denies chest pain, abdominal pain, nausea, vomiting or diarrhea. continues with increased edema at home with shortness of breath more with excertion. Patient reports stable blood pressure at home without lightheadedness or dizziness. 07/01/2024--- Patient presents to the office today for CKD F/U. Patient denies any recent hospitalizations or acute illness. Denies steroid or antibiotic usage recently. Denies recent falls or injuries. Patient denies chest pain, abdominal pain, nausea, vomiting or diarrhea. Patient has increased edema in BLE. patient reports this has been increasing over the last several weeks. Denies shortness of breath with lying down at night but does experience shortness of breath with any activity. Patient reports stable blood pressure at home without lightheadedness or dizziness. 05/13/2024--- Patient presents to the office today for CKD F/U. Patient denies any recent hospitalizations or acute illness. Denies steroid or antibiotic usage recently. Denies recent falls or injuries. Patient denies chest pain, abdominal pain, nausea, vomiting or diarrhea. Patient denies edema or worsening to edema at home. Denies shortness of breath or difficulty breathing. Patient reports stable blood pressure at home without lightheadedness or dizziness. 04/08/2024--- Patient presents to the office today for CKD F/U. Patient denies any recent hospitalizations, illnesses or medical concerns at this time. 01/01/24---Patient presents to the office today for CKD F/U. Patient denies any recent hospitalizations, illnesses or medical concerns 10/02/2023--- Patient reports to the office for 3month CKD Follow up. Denies acute illness, hospitalization or clinical concerns at this time. 07/03/23--Patient presents to the office today for CKD F/U. Patient denies any recent hospitalizations, illnesses or medical concerns 05/15/23--Patient presents to the office today for CKD F/U. Patient denies any recent hospitalizations, illnesses or medical concerns 03/20/23--Patient presents to the office today for CKD F/U. Patient denies any recent hospitalizations, illnesses or medical concerns. 02/13/23--Presents to the office today for CKD F/U. Denies any recent hospitalizations, illnesses or medical concerns, 12/12/22--- Patient reports to the office for CKD Follow up. Denies acute illness, hospitalization or clinical concerns at this time. H ospital Follow-up: Resolved admission NEO secondary to pre-renal azotemia and Sensipar induced ATN renal effect. Patient with a creatinine of 2.3 on 07/13/2024 andpresented to outside facility with clinical symptoms consistent with uremia and finding of elevated creatinine level greater than 4. No indication for renal biopsy with continued recovery.Continue I & O monitoring, strict BP and glucose control.-OK to DC perez-OK for DC per renal standpoint with follow up in 1-2 weeks at our [facility] 2. HTN (hypertension) Chronic baseline history of hypertension was well-managed on patient with use of losartan, furosemide, and spironolactone medications. Continue Losartan at 25mg dosage from prior 100mg dosage and Lasix at 40mg daily dosage--from prior 80mg home dosage. 3. DM type 2 causing CKD stage 4 Continue Jardiance 10mg dosage as NEO resolved. Chronic history of diabetes, monitor hemoglobin A1c and patient's glucose levels closely. Goal for strict glycemic management to further aid potential renal recovery. 4. Electrolyte abnormality Patient admitted with significant azotemia secondary to NEO on baseline CKD stage 4. Resolved azotemia with renal recovery. 5. Renal osteodystrophy Elevated intact PTH level consistent with secondary hyperparathyroidism. Patient was on Cinacalcet 30mg daily, the etiology for the NEO and hypocalcemia. Discontinued his Cinacalcet and now on Calcitriol 0.5 mcg daily-- plan to continueStarted on hyper-phosphatemia treatment with Phoslo 667mg [facility]-- plan to continue on DC. * ROS: G eneral/Constitutional: Denies C hange in appetite. D enies C hills. D enies F ever. D enies N ight sweats. O phthalmologic: Denies B lurred vision. D enies D ischarge. D enies E ye Pain. E NT: Denies D ecreased hearing. D enies S ore throat.?Denies S wollen glands. E ndocrine: Denies C old intolerance. D enies E xcessive thirst. D enies H eat intolerance. D enies W eight loss. R espiratory: Denies C ough. D enies S hortness of breath at rest. D enies S hortness of breath with exertion. D enies W heezing. C ardiovascular: Denies C hest pain at rest. D enies C hest pain with exertion. D enies I rregular heartbeat. D enies S hortness of breath. ? G astrointestinal: Denies A bdominal pain. D enies C onstipation. D enies D iarrhea. D enies N ausea. D enies V omiting. G enitourinary: Denies B lood in urine. D enies D ifficulty urinating. D enies F requent urination. D enies P ainful urination. M usculoskeletal: Denies M uscle aches. D enies P ainful joints. D enies S wollen joints. D enies W eakness. S kin: Denies D ry skin. D enies I tching. D enies?Rash. N eurologic: Denies D izziness. D enies F ainting. D enies?Headache. D enies L oss of strength. * Medical History: * Medications: T aking Allopurinol 100 MG Tablet 1 tablet Orally twice a day , Taking Aspirin 81 81 MG Tablet Delayed Release 1 tablet Orally Once a day , Taking Carvedilol 12.5 MG Tablet 1 tablet with food Orally Twice a day , Taking HumaLOG KwikPen 100 UNIT/ML Solution Pen-injector as directed Subcutaneous , Taking Jardiance 25 MG Tablet 0.5 tablet in the morning Orally Once a day , Taking Lasix 40 MG Tablet 1 tablet Orally twice a day , Taking Losartan Potassium 25 MG Tablet 1 tablet Orally Once a day , Taking Magnesium Gluconate 500 (27 Mg) MG Tablet 1 tablet Orally Once a day , Taking Plavix 75 MG Tablet 1 tablet Orally Once a day , Taking Pravastatin Sodium 10 MG Tablet 1 tablet Orally Once a day , Taking Spironolactone 50 mg Tablet TAKE ONE TABLET BY MOUTH DAILY , Taking Toujeo SoloStar 300 UNIT/ML Solution Pen-injector as directed Subcutaneous twice a day 30u, Taking Vitamin B12 100 MCG Tablet 1 tablet Orally once a day , Taking Vitamin C 500 MG Capsule as directed Orally , Not-Taking Alpha Lipoic Acid 200 MG Capsule 1 capsule Orally Once a day , Notes to Pharmacist: 600 mg, Not-Taking Ascorbic Acid 1000 MG Tablet 1 tablet Orally Once a day , Not-Taking Bumetanide 2 MG Tablet 1 tablet Orally Twice a day , stop date 01/11/2025, Not- Taking Calcitriol 0.5 MCG Capsule 1 capsule Orally Once a day , Not-Taking Cholecalciferol 125 MCG (5000 UT) Capsule as directed Orally , Not-Taking Entresto 24-26 MG Tablet 1 tablet Orally Twice a day , Not-Taking Flomax 0.4 MG Capsule 1 capsule Orally twice a day , Not-Taking Losartan Potassium-HCTZ 50-12.5 MG Tablet 1 tablet Orally Once a day , Not-Taking Magnesium 250 MG Tablet 1 tablet with a meal Orally Once a day , Not-Taking Magnesium Oxide 400 MG Tablet 1 tablet as needed Orally Once a day , Not-Taking metOLazone 2.5 MG Tablet 1 tablet Orally Three times a week , stop date 11/12/2024, Not-Taking MiraLax 17 GM Packet 1 packet mixed with 8 ounces of fluid Orally Once a day , Not-Taking Multiple Vitamins-Minerals - Tablet as directed Orally , Not-Taking Nitroglycerin 0.4 MG Tablet Sublingual as directed Sublingual , Not-Taking Pepcid 20 MG Tablet 1 tablet at bedtime Orally Once a day , Not- Taking Probiotic , Not-Taking Protonix 20 MG Tablet Delayed Release 1 tablet 1/2 to 1 hour before morning meal Orally Once a day , Not-Taking Sensipar 60 MG Tablet 1 tablet with food or after a meal Orally 5 times a week , Not-Taking traMADol HCl 50 MG Tablet 1 tablet as needed Orally every 8 hours , Not-Taking Zinc 50 MG Tablet 1 tablet Orally Once a day Objective: * Vitals: Assessment: * Assessment: 1. E ssential hypertension, benign - I10 2 . P rimary hyperparathyroidism - E21.0 3 . E lectrolyte abnormality - E87.8 4 . C HF (congestive heart failure) - I50.9 5 . D iabetes mellitus type 2 with complications - E11.8 6 . C hronic kidney disease, stage 3a - N18.31 Plan: * Treatment: 2. P rimary hyperparathyroidism L AB: Phosphorus, Serum L AB: Uric Acid, Serum L AB: Magnesium, Serum L AB: Renal Panel (10) L AB: CBC L AB: Parathyroid Hormone Intact L AB: Urinalysis with Culture if indicated L AB: Urine Protein Creatinine Ratio Clinical Notes: 11/11/2024- - Ca 10.0, iPTH 164.0. Pt's reports patient did not scheduled appt with Dr. Ferrara when his office called because they have been too busy. Encouraged to call office back and schedule consult after education provided. Plan to continue to closely trend Ca level as patient is no longer on sensipar since NEO. Continue to avoid all calcium supplementation and vitamin D as well as follow a low Ca diet. 09/23/2024- - Ca 11.0, iPTH 120.Refer to Dr. Ferrara for Parathyroidectomy. He failed Sensipar and developed NEO from it. 08/26/24- - - - Resolved severe admission NEO secondary to pre-renal azotemia and Sensipar induced ATN. Patient with a presenting Cr of >4, and uremic symptoms. Labs for today's visit of UPCR, iPTH, and Uric acid not calculated for visit. Ca 10.5, Alb 4.2, Phos 2.4. Will disocntinue with Calcitriol 0.25mcg 3x/week as calcium level was increased. 07/08/24- - - Ca 10.5 iPTH __no lab__. Will decrease sensipar to 60mg 5/week. Contiue off calcitriol at this time. 07/01/24- - - Ca 8.4, iPTH 182. Will decrease sensipar to 60mg 5/week. Contiue off calcitriol at this time. 05/13/24- - -iPTH 166.0, Ca 9.6. Plan to increase frequency of Sensipar 30mg daily to 60mg daily for better management of his iPTH. Disccontinue with Calcitriol 0.25mcg 4x/week 04/08/24____-iPTH 206.0, Ca 11.0. Plan to increase frequency of Sensipar 30mg daily to 60mg daily for better management of his iPTH. Disccontinue with Calcitriol 0.25mcg 4x/week 01/01/24____IPTH 242.0, Ca 10.4. Plan to increase frequency of Sensipar 30mg daily to 60mg daily for better management ofhis iPTH. Continue with Calcitriol 0.25mcg 4x/week. 270lbs from 289bs weight today and patient same weight as last 3 months. 10/02/2023____IPTH 174, Ca 9.4. Plan to increase frequency of Sensipar 30mg from 5x/week to daily, and continue with Calcitriol 0.25mcg but increase frequency from 2X to 4x/week. 289bs weight today and patient same weight as last 3 months. Patient with cellulitis on presentation today with skin abrasion on his left foot and plan to start Keflex 500mg BID for 7days. Instructions to clean site withvbetadine and follow up with his PCP. . 07/03/23__IPTH 117.9, Ca 8.7. Continue Sensipar 30mg but reduce from daily to 5x/week and start Calcitriol 0.25mcg 2X week. 36lbs weight gain from his initial evaluation weight. 05/15/23__iPTH 225.0, Ca 11.0. Denies use of Sensipar due to side effects. Was on Lasix 60mg and HCTZ 25mg daily__- medication reconciliation and discussed with the patient the significance of improved management of the hypercalcemia due to the high risk of atherosclerotic disease, nephrolithiasis, and eventual risk of renal failure with hypercalcemia. Medication reconciliation and plan to discontinue the hydrochlorothiazide increase patient's Lasix to 80 mg resume Sensipar 30 mg daily reevaluate patient's intact PTH and calcium level in the next 6 weeks. 03/20/23__iPTH 202.5, Ca 10.4. Admits that he stopped taking the Sensipar due to excessive diarrhea occuring after the first dose. 02/13/23____Dscussed with patient recomendation for treatment with Sensipar 30mg daily and re-eal in 4 weeks. His iPTH level is 151 today in office. 12/12/22____ Differential for elevated iPTH level of 164 with a Ca level of 11.1. Etiology of hypercalcemia could be from F[facility]; primary hPTH; [place] or malignancy. Plan to obtain a nuclear scan of patient's parathyroid glands to determine hyperactivity of the glands. Plan also to monitor her urine electrolyte level to determine patient's urine calcium excretion. Treatment at this time with complete discontinuation of any vitamin D, dietary education of a low calcium, and plan to initiate treatment with Sensipar on return to clinic after diagnostic studies. 3. E lectrolyte abnormality L AB: Phosphorus, Serum L AB: Uric Acid, Serum L AB: Magnesium, Serum L AB: Renal Panel (10) L AB: CBC L AB: Parathyroid Hormone Intact L AB: Urinalysis with Culture if indicated L AB: Urine Protein Creatinine Ratio Clinical Notes: 11/11/2024- - Na 137, K 4.7, Cl 102, CO2 23, Phos 3.2, Ca 10.0, Mg 1.9. Continue with Allopurinol 200mg daily, lasix 40mg BID, magnesium 400mg daily, and aldactone 50mg daily. Continue to follow a low Ca diet. 09/23/2024- - Na 135, K 4.5, Cl 99, CO2 24, Phos 2.5, Ca 11.0, Mg 2.2. Continue with Allopurinol 200mg daily, lasix 40mg BID, magnesium 400mg daily, and aldactone 50mg daily 08/26/24- - - -Na 137, K 4.9, Cl 103, CO2 24, Phos 2.4, ca 10.5, Glu 147. 08/26/24- Mg 2.2, Na 137, K 4.9, Cl 103, Co2 24, Ca 10.5, Alb 4.2, Phos 2.4. No uric acid with visit. Continue with allopurinol 200mg daily, lasix 80mg BID, magnesium 400mg daily, and aldactone 50mg daily 07/01/24- - Mg 1.7, Ca 8.4, albumin 4.0, Phos 3.1, Na 136, K 4.7, Cl 99, Co2 26, Uric acid 7.0. Will continue with allopurinol 200mg daily, lasix 80mg BID, magnesium 400mg daily, and aldactone 50mg daily .Will decrease sensipar to 60mg 5/week and start metolazone 5mg x 3 days to assist with hypervolemia. 05/13/24- -Na 139, K+ 3.4, Cl 95, Co2 29, Ca 9.6, Phos 2.1, Mg 1.6, and uric acid 13.2. Encourage 2 gram sodium diet, higher dietary phosphorus and continue allopurinol 100mg daily. 04/08/24- - Na 136, K+ 3.7 Cl 98 Co2 27 Ca 11.0 Phos 1.8 Mg 1.6 and uric acid 7.6. Encourage 2 gram sodium diet, higher dietary phosphorus and continue allopurinol 100mg daily. 01/01/24- - Na 138, K+ 4.4 Cl 102 Co2 25 Ca 10.4 Phos 2.4 Mg 2.1 and uric acid 5.9. Encourage 2 gram sodium diet, higher dietary phosphorus and continue allopurinol 100mg daily. 10/02/2023- Na 136, K+ 4.2 Cl 101 Co2 24 Ca 9.4 Phos 2.5 Mg 2 and uric acid 6.7. Encourage 2 gram sodium diet, higher dietary phosphorus and continue allopurinol 100mg daily. 07/03/23- Na 135, K+ 4.3, Cl 100, Co2 25, Ca 8.7, Phos 2.5, Mg 1.9 and uric acid 6.8. Encourage 2 gram sodium diet, higher dietary phosphorus and continue allopurinol 100mg daily. 05/15/23- Uric acid 10.0. Start allopurinol 100mg daily 4. C HF (congestive heart failure) L AB: Phosphorus, Serum L AB: Uric Acid, Serum L AB: Magnesium, Serum L AB: Renal Panel (10) L AB: CBC L AB: Parathyroid Hormone Intact L AB: Urinalysis with Culture if indicated L AB: Urine Protein Creatinine Ratio Clinical Notes: 11/11/2024- - Denies increase to BLE edema. Reports weight today at hospital of 260lbs. Will continue lasix 40mg BID and Aldactone 50mg daily. K 4.7 09/23/2024- - - +2/4 LE edema in BLE. Will continue lasix 40mg BID, and Aldactone 50mg daily. K 4.5. 08/26/24- - - - +2/4 LE edema in BLE. Will continue lasix 80mg BID, entresto 24-26mg BID, and aldactone 50mg daily. K 4.7. 07/01/24- - +2 edema in BLE. Will continue lasix 80mg BID, entresto 24-26mg BID, and aldactone 50mg daily. K 4.7, will start metolazone 5mg daily x 3 days and repeat labs and follow up in 1 week. 05/13/24__-Continue lasix 80 mg daily, FR 48 ounces and daily weight. Patient to take Lasix 80mg BID for better edema management. 04/08/24__-Continue lasix 80 mg daily, FR 48 ounces and daily weight. Patient to take Lasix 80mg BID for better edema management. 01/01/24____Continue lasix 80 mg daily, FR 48 ounces and daily weight. Patient to take Lasix 80mg and 40mg for weight above 280lbs. 10/02/2023__Continue lasix 80 mg daily, FR 48 ounces and daily weight. Patient to take Lasix 80mg and 40mg for weight above 280lbs. 07/03/23__Continue lasix 80 mg daily, FR 48 ounces and daily weight. Patient to take Lasix 80mg and 40mg for weight above 280lbs. 05/15/23____ Will stop HCTZ due to hypercalcemia. Failed attempt with lasix. ncrease patient's Lasix to 80 mg daily and fluid restriction to 48 ounces a day. 02/13/23__Will stop combination losartan -HCTZ and continue losartan 50 mg daily and increase lasix 40mg daily due to increased edema to the bilateral lower extremities. FR 48 ounces and daily weight. 12/12/22____-use of losartan hydrochlorothiazide- 5012.5mg 1 tablet daily along with reduction in patient's Lasix to 20mg and continue with amlodipine 5mg. 11/14/22____ Review of records with evidence of patient with coronary artery disease with CHF and associated cardiorenal effect. Discussed with patient plans for optimization of patient's renal function and its resultant benefit and expected improvement of cardiac function. Monitor patient's dietary intake and fluid intake as well as monitor patient's urinary output. Plan for increased diuresis; fluid management and restriction of fluid intake to 48oz daily, as well as salt dietary intake of less than 2000mg daily, and daily weighing to determine dosage of diuretic needed for that day. 5. D iabetes mellitus type 2 with complications L AB: Phosphorus, Serum L AB: Uric Acid, Serum L AB: Magnesium, Serum L AB: Renal Panel (10) L AB: CBC L AB: Parathyroid Hormone Intact L AB: Urinalysis with Culture if indicated L AB: Urine Protein Creatinine Ratio Clinical Notes: 11/11/2024- - Glucose at time of lab draw 183. Continue with strict glucose management and monitoring. Continue diabetic diet. 09/23/2024- - Glucose at time of draw 169. Recommendation for a goal hemoglobin A1c of less than 6.5, strict blood sugar ranges of 80 to 120. Patient instructed to continue with routine follow up with their primary care physician for management of diabetes. Patient compliance also discussed with patient and its effect on renal prognosis. 07/08/24__- Glucose at time of lab draw 147. Continue with strict glucose management and monitoring. Continue diabetic diet. 07/01/24- - Glucose at time of lab draw 108. Continue with strict glucose management and monitoring. Continue diabetic diet. 05/13/24- - Glucose at time of lab draw 150. Continue with strict glucose management and monitoring. Continue diabetic diet. 04/08/24__-Glucose at time of lab draw 195. Continue with strict glucose management and monitoring. Continue diabetic diet. 01/01/24__- Glucose at time of lab draw 147. Continue with strict glucose management and monitoring. Continue diabetic diet. 10/02/2023__- Glucose at time of lab draw 164. Continue with strict glucose management and monitoring. Continue diabetic diet. 05/15/23__- Glucose at time of lab draw 183. Continue with strict glucose management and monitoring. Continue diabetic diet. 12/12/22____ Recommendation for a goal hemoglobin A1c of less than 6.5, strict blood sugar ranges of 80 to 120. Patient instructed to continue with routine follow up with their primary care physician for management of diabetes. Patient compliance also discussed with patient and its effect on renal prognosis. Manifestations of renal disease from diabetes associated with the renal disease. Dietary recommendations to be further discussed with patient's primary physician, with recommendations for a strict ADA 2000calorie diet. 6. C hronic kidney disease, stage 3a Clinical Notes: 11/11/2024- - Patient with eGFR of 49ml/min from prior 34ml/min consistent with CKD stage 3a. Patient with a urine protein of <6, Uric acid 4.8, iPTH 164.0, Ca 10.0 from prior 11.0, Albumin 4.1, Phos 3.2. Pt's reports patient did not scheduled appt with Dr. Ferrara when his office called because they have been too busy. Encouraged to call office back and schedule consult after education provided. Patient had amputation of great R toe this morning and is on keflex for 14 days. Plan to continue to closely trend Ca level as patient is no longer on sensipar. Continue to avoid all calcium supplementation and vitamin D as well as follow a low Ca diet. 09/23/2024- - Patient with eGFR 34ml/min from 48ml/min consistent with CKD stage 3b. UPCR 0.16g/g, [id number], Uric Acid 5.3, Ca 11, Albumin 4.0, Phos 2.5. Resolved severe admission NEO secondary to pre-renal azotemia and Sensipar induced ATN. Patient with a presenting Cr of >4, and uremic symptoms__was not started on dialysis. Labs for today's visit of UPCR, iPTH, and Uric acid not calculated for visit. Ca 10.5, Alb 4.2, Phos 2.4. Will discontinue with Calcitriol 0.25mcg 3x/week as calcium level was increased. 08/26/24__Patient with eGFR 48ml/min from 29ml/min consistent with CKD stage 3A. Resolved severe admission NEO secondary to pre-renal azotemia and Sensipar induced ATN. Patient with a presenting Cr of >4, and uremic symptoms. Labs for today's visit of UPCR, iPTH, and Uric acid not calculated for visit. Ca 10.5, Alb 4.2, Phos 2.4. Will discontinue with Calcitriol 0.25mcg 3x/week as calcium level was increased. Resolved NEO and resumed Losartan 25mg__from home 100mg dosage; resumed Lasix 40mg__from home dosage of 80mg and resumed Jardiance 10mg dosage with resolved NEO. Continued treatment of [place], without Cinacalcet 30mg daily, and also discontinue with Calcitriol 0.5mcg daily but continue with hyper-phosphatemia treatment with Phoslo 667mg qac. 07/01/24- - eGFR 39ml/min from 26ml/min which is consistent with CKD Stage 3B. UPCR 0.11g/g, Uric acid 7.0, iPTH 182. ca 8.4, albumin 4.0, phos 3.1. Will decrease Sensipar to 60mg 5/week from daily as calcium level has decreased and intact PTH has increased. +2 edema in BLE. Will continue with Lasix 80mg BID, Entresto, and Aldactone 50mg daily. K 4.7. Will start metolazone 5mg x 3 days. 05/13/24- - Patient with eGFR of 26ml/min from prior 34ml/min consistent with CKD stage 4. Patient with a Uric acid 13.2, iPTH 166, Ca 8.8 from 9.6, Albumin 4.1, Phos 2.4__increase in diary product, K 2.3- - start Aldactone 50mg daily__continue with Lasix 80mg and Entresto and Jardiance meds. , Patient was recently admitted to [facility] for peripheral vascular disease and had stenting to his left femoral vessel. Bilateral lower extremity edema with management at this time plan for introduction of spironolactone 50 mg daily along with patient's furosemide 80 mg to help with his +3/4 edema. Medication reconciliation and plan to increase allopurinol from 100 mg to 200 mg daily. 04/08/24__- Patient with eGFR of 47 ml/min from prior 48 ml/min consistent with CKD stage 3A. Patient with a Uric acid 7.6, iPTH 206, Ca 11.0, Albumin 4.2, Phos 1.8. Plan to increase frequency of Sensipar 60mg daily for better management of his iPTH and Ca. Discontinue with Calcitriol 0.25mcg 4x/week medication and continue with only above Sensipar. .He was on Tums medication recently which accounts for his hypercalcemia. 01/01/24____ Patient with eGFR of 48 ml/min from prior 44 ml/min consistent with CKD stage 3A. Patient with a UPCR 0.11 g/g, Uric acid 5.9, iPTH 242, Ca 10.4, Albumin 3.9, Phos 2.4. 10/02/2023__Patient with eGFR of 44ml/min from prior 56ml/min consistent with CKD stage 3B. Patient with iPTH level of 174, a UPCR of 0.25g/g. Uric acid 6.7. . 07/03/23__Patient with eGFR of 56ml/min from prior 42ml/min consistent with CKD stage 3A. Patient with iPTH level of 117.9 and a UPCR of 0.54g/g. Uric acid 6.8. Patient is 36lbs weight gain from his initial evaluation weight. Plan to increase his Losartan from 50mg to 100mg daily 05/15/23__Patient with eGFR of 42ml/min from prior 56ml/min consistent with CKD stage 3B. Patient with iPTH level of 225 and a UPCR of 0.34g/g. Uric acid 10.0. Ca 11.0. Will start allopurinol 100mg daily. unable to take Sensipar due to side effects. Will stop HCTZ and start bumex 03/20/23__Patient with eGFR of 56ml/min from prior 60ml/min consistent with CKD stage 3A. Patient with iPTH level of 202.5 and a random urine protein 27mg/dL. Uric acid 7.5 02/13/23__No renal panel with today's lab work. Ordered for next appointment 12/12/22____ Chronic kidney disease with eGFR of 60ml/min with Cystatin eGFR of 41ml/min. 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 Initial recommendations to work on exercise and weight loss. Patient instructions to avoid non-steroidal medications and nephrotoxins, due to their detrimental effects on the kidneys. Labs reviewed with patient and instructions on continued renal improvement provided. Discussed with the patient the aim of sustaining their residual renal function, based on the following: A) Goal of blood pressure of less than 130/80mmHg B) Tight glycemic control with goal A1c less than 6.5 C) Goal urine protein excretion of less than 0.3g/g D) Treat metabolic acidosis with goal serum bicarbonate of greater than 20 E) Keep Phos level between 3.5 - 5.5mg/dl F) Goal LDL of less than 100mg/dl G) Goal of keeping uric acid level less than 6.5mg/dl H) Maintain a 2gm sodium diet I) Avoid nephrotoxic medications with education provided about NSAIDS and their detrimental effects on renal function * Follow Up: 4 Weeks (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,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) * * Electronic signature of Hugh Carranza on 11/15/2024 at 02:11 PM EDT Sign off status: Pending * Provider: Edmund Carranza, OPERATING ROOM NURSE Date: 11/11/2024 Generated for Amanda rogers/Byron/Juan Albertosmitting on: 11/15/2024 02:11 PM EDT History and Physical Notes * HPI (History of Present Illness) Category Sub-Category Detail Notes Category Not es Constitutional This is a 64-year-old male who presents to [facility], referred by his PCP, for renal insufficiency management; Cerebrovascular accident (CVA)--06/2021, affecting his left side; Chronic pain; COVID-19--06/05/2021; Essential hypertension--since the past 20 years; H/O heart artery 3 stents; Obstructive sleep apnea on CPAP; Type 2 diabetes mellitus without complication (HCC)-since the past 40 years. Past surgical history of ANGIOPLASTY- -06/03/2021; cardiac PCI- -2020; CARDIAC CATHETERIZATION 05/29/2021- -Dr Mars/[facility]/right radial-Severe three vessel coronary artery disease involving a 90% proximal RCA stenosis, a 70% distal RCA stenosis, a 100% probably chronic total occlusion of a OM1 that has a long stent in the proximal vessel mid 90% stenosis in the left anterior descending coronary artery. Consult interventional cardiology for angioplasty and/or stenting; CARDIAC CATHETERIZATION- - 09/09/2021; SYLVIA mid LAD; LASER OF PROSTATE W/ GREEN LIGHT PVP 07/15/2022; CYSTOSCOPY TRANSURETHRAL RESECTION PROSTATE LASER-PVP GREENLIGHT- Dr. Ferrer; LYMPH NODE DISSECTION Right 1966; TURP N/A 07/15/2022; CYSTOSCOPY TRANSURETHRAL RESECTION PROSTATE LASER-PVP GREENLIGHT performed by Akira Ferrer MD at [facility] OR . . . . . . . .
--- OUTSIDE RECORDS SUMMARY | 2024-11-11 13:00 | XMS_ITS ---
Author Organization [facility] Address [address] [place] [address] Care Team Providers Care Shellfish Weigher Name Role Phone christine rae Primary Care Provider Harrison Mcdermott Unavailable [phone] Encounters Encounter Location Date Provider Diagnosis [facility] [address] [place] [address] 11/11/2024 Harrison Beltran Plan Of Treatment Next Appt Details Provider Name:Bobo Papito Ignacio, 12/09/2024 02:30:00 PM, [address] [place], [address], Progress Notes * Sivakumar KERROB:1960 (64 yo M)Acc No.[id number]:11/11/2024 Progress Notes Patient: Piotr ROBERTS Provider: Winston Beltran DO :1960 A ge:64 Y S ex:Male Date:11/11/2024 Address:[address] [place] [id number] Pcp:christine rae Subjective: * Chief Complaints: * * Medical History: Objective: * Vitals: Assessment: Plan: * Treatment: * * Electronic signature of Verona Beltran DO on 11/15/2024 at 02:12 PM EDT Sign off status: Pending * Provider: Winston Beltran DO Date: 11/11/2024 Generated for Eldoni ng/Faxing/eTransmitting on: 11/15/2024 02:12 PM EDT
[2024-11-15 14:08] VITALS: BP 140/70; PULSE 73; TEMP 37.1; O2SAT 93; BMI 35.5
--- OUTSIDE RECORDS SUMMARY | 2024-11-15 14:12 | XMS_ITS | Patient Health Record ---
Author Organization [facility] Address [address] [place] [address] [place] [address] Care Team Providers Care [employer] Name Role Phone christine rae Primary Care Provider UnavailHarrison López Unavailable [phone] Brenda Glass Unavailable [phone] Hallie Carranza Unavailable [phone] Allergies Allergen (clinical drug ingredient) Drug/Non Drug Allergy documented on EMR Reaction Allergy Type Onset Date Status dapagliflozin Farxiga Unknown Drug Allergy Act pao azithromycin Azithromycin Unknown Drug Allergy A ctive ciprofloxacin Ciprofloxacin Unknown Drug Allergy Active lisinopril Lisinopril Unknown Drug Allergy Activ e Results Component Value Reference Range Notes US Renal and Bladder Reviewed date:07/27/2024 04:32:25 PM Interpretation: Performing Lab: Notes/Report: Patient Name: Piotr Kerr CLINICAL HISTORY: Acute renal failure. Reason For Referral Reason Parathyroidectomy Diagnosis 1 Primary hyperparathy roidism (E21.0) Referral Organization [facility] Referring Provider First Name Harrison Referring Provider Last Name Ruby Referring Provider Speciality Nephrology Referred Provider Specialty Endocrine valerio rgeon Referral Priority Routine Medications Medication SIG (Take, Route, Frequency, Duration) Notes Start Date End Date Status Spironolactone 50 mg TAKE ONE TABLET BY MOUTH DAILY for 30 Active Toujeo SoloStar 300 UNIT/ML as directed Subcutaneous twice a day 30u Active Plavix 75 MG 1 tablet Orally Once a day Active traMADol HCl 50 MG 1 tablet as needed Orally every 8 hours Not-Taking Pravastatin Sodium 10 MG 1 tablet Orally Once a day Active Zinc 50 MG 1 tablet Orally Once a day Not-Taking Magnesium 250 MG 1 tablet with a meal Orally Once a day for 30 day(s) Not-Taking Protonix 20 MG 1 tablet 1/2 to 1 hour before morning meal Orally Once a day for 30 day(s) Not-Taking Magnesium Oxide 400 MG 1 tablet as neede d Orally Once a day Not-Taking Sensipar 60 MG 1 tablet with food o r after a meal Orally 5 times a week for 90 days Not-Taking Lasix 40 MG 1 tablet Orally twic e a day for 30 days Active Pepcid 20 MG 1 tablet at bedtime Orally Once a day Not-Taking Losartan Potassium 25 MG 1 tablet Orally Once a day for 90 days Active Probiotic Not-Taking HumaLOG KwikPen 100 UNIT/ML as directed Subcutaneous Active Multiple Vitamins-Minerals - as directed Orally No t-Taking Jardiance 25 MG 0.5 tablet in the morning Orally Once a day for 30 days Active Nitroglycerin 0.4 MG as directed Sublingual Not-Taking MiraLax 17 GM 1 packet mixed with 8 ounces of fluid Orally Once a day Not-Taking Carvedilol 12.5 MG 1 tablet with food Orally Twice a day Active Allopurinol 100 MG 1 tablet Orally twic e a day for 90 days Active Losartan Potassium-HCTZ 50-12.5 MG 1 tablet Orally Once a day for 30 days 12/12/2022 Not-Taking Aspirin 81 81 MG 1 tablet Orally Once a day Active Entresto 24-26 MG 1 tablet Orally Twic e a day for 30 day(s) Not-Taking Magnesium Gluconate 500 (27 Mg) MG 1 tablet Orally Once a day Active Flomax 0.4 MG 1 capsule Orally twice a day Not-Taking Calcitriol 0.5 MCG 1 capsule Orally Onc e a day for 30 day(s) Not-Taking Cholecalciferol 125 MCG (5000 UT) as directed Orally Not-Takin g Ascorbic Acid 1000 MG 1 tablet Orally On ce a day Not-Taking Bumetanide 2 MG 1 tablet Orally Twic e a day for 90 days 07/15/2024 01/11/2025 Not-Taking Vitamin C 500 MG as directed Orally Active Alpha Lipoic Acid 200 MG 1 capsule Orall y Once a day 600 mg Not-Taking Vitamin B12 100 MCG 1 tablet Orally once a day Active Social History Tobacco Use: Social History Observation Description Date Details (start date - stop date) Never Smoker NA - NA Tobacco Use/Smoking Question Answer Notes Are you a nonsmoker Problems Problem Type SNOMED Code ICD Code Onset Dates Problem Status W/U Status Risk Notes Problem Primary hyperparathyroidism (13737131) Primary hyperparathyroidism (E21.0) Active confirmed Problem Hypercalcemia (74875259) Hypercalcemia (E83.52) Active confirmed Problem Chronic kidney disease stage 2 (393345984) Chronic kidney disease, stage 2 (mild) (N18.2) Active confirmed Problem Chronic kidney disease stage 4 (167570101) Chronic kidney disease, stage 4 (severe) (N18.4) Active confirmed Problem Electrolytes abnorma l (222968719) Electrolyte abnormality (E87.8) Active confirmed Problem Congestive heart failure (44725301) CHF (congestive heart failure) (I50.9) Active confirmed Problem 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 (I12.9) Active confirmed Problem Disorder of calcium metabolism (24197228) Calcium disorder (E83.50) Active confirmed Problem Benign essential hypertension (6769067) Essential hypertension, benign (I10) Active confirmed Problem Disorder due to type 2 diabetes mellitus (039089304) 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) Active confirmed Problem Chronic kidney disease stage 3A (disorder) (314544378) Chronic kidney disease, stage 3a (N18.31) Active confirmed Problem Chronic kidney disease stage 3B (disorder) (194503983) Chronic kidney disease, stage 3b (N18.32) Active confirmed Vital Signs Heart Rate 64 /min 09/23/2024 Blood pressure diastolic 78 mm Hg 09/23/2024 Height 72 in 09/23/2024 Blood pressure systolic 144 mm Hg 09/23/2024 Weight 262 lbs 09/23/2024 BMI 35.53 kg/m2 09/23/2024 Encounters Encounter Location Date Provider Diagnosis [facility] [address] [place] [address] 11/11/2024 Hallie Carranza Essential hypertensi on, benign I10 ; Primary hyperparathyroidism E21.0 ; Electrolyte abnormality E87.8 ; CHF (congestive heart failure) I50.9 ; Diabetes mellitus type 2 with complications E11.8 and Chronic kidney disease, stage 3a N18.31 [facility] [place] [address] 01/01/2024 Harrison Beltran Primary hyperparathyroidism E21.0 ; Chronic kidney disease, stage 3a N18.31 ; Hypercalcemia E83.52 ; Essential hypertension, benign I10 ; Diabetes mellitus type 2 with complications E11.8 ; CHF (congestive heart failure) I50.9 and Electrolyte abnormality E87.8 [facility] [address] [place] [address] 04/08/2024 [facility] Primary hyperparathyroidism E21.0 ; Chronic kidney disease, stage 3a N18.31 ; Essential hypertension, benign I10 ; Electrolyte abnormality E87.8 ; Hypercalcemia E83.52 ; CHF (congestive heart failure) I50.9 and Diabetes mellitus type 2 with complications E11.8 [facility] [place] [address] [facility] Essential hypertensi on, benign I10 ; Chronic kidney disease, stage 4 (severe) N18.4 ; Primary hyperparathyroidism E21.0 ; Electrolyte abnormality E87.8 ; Hypercalcemia E83.52 ; CHF (congestive heart failure) I50.9 and Diabetes mellitus type 2 with complications E11.8 [facility] [place] [address] 07/01/2024 Brenda Glass Essential hypertensi on, benign I10 ; Chronic kidney disease, stage 3b N18.32 ; Primary hyperparathyroidism E21.0 ; Electrolyte abnormality E87.8 ; Hypercalcemia E83.52 ; CHF (congestive heart failure) I50.9 and Diabetes mellitus type 2 with complications E11.8 [facility] [place] [address] 07/15/2024 Brenda Glass Chronic kidney disea se, stage 3b N18.32 ; Electrolyte abnormality E87.8 ; Essential hypertension, benign I10 ; Primary hyperparathyroidism E21.0 ; Hypercalcemia E83.52 ; CHF (congestive heart failure) I50.9 and Diabetes mellitus type 2 with complications E11.8 [facility] [place] [address] 08/26/2024 [facility] Essential hypertensi on, benign I10 ; Chronic kidney disease, stage 3a N18.31 ; Primary hyperparathyroidism E21.0 ; Electrolyte abnormality E87.8 ; CHF (congestive heart failure) I50.9 and Diabetes mellitus type 2 with complications E11.[address] [place] [address] 09/23/2024 Benahili Iboaya Essential hypertensi on, benign I10 ; Chronic kidney disease, stage 3b N18.32 ; Primary hyperparathyroidism E21.0 ; Electrolyte abnormality E87.8 ; CHF (congestive heart failure) I50.9 and Diabetes mellitus type 2 with complications E11.8 [facility] [address] [place] [address] [place] [address] 09/27/2024 Benili Iboacody [facility] [address] [place] [address] [place] [address] 04/11/2024 Benahili Iboaya Primary hyperparathyroidism E21.0 [facility] [address] [place] [address] 05/06/2024 Benili Iboaya [facility] [address] [place] [address] [place] [address] 05/11/2024 Benili Iboaya [facility] [address] [place] [address] [place] [address] 05/11/2024 Benili Iboaya [facility] [address] [place] [address] 05/13/2024 Benili Iboaya [facility] [address] [place] [address] [place] [address] 05/16/2024 Benili Iboaya [facility] [address] [place] [address] [place] [address] 06/07/2024 Benili Iboaya [facility] [address] [place] [address] 07/22/2024 Benili Iboaya [facility] [address] [place] [address] [place] [address] 08/31/2024 Benahili Iboaya Assessments Encounter Date Diagnosis (ICD Code) Assessment Notes Treatment Notes Treatment Clinical Notes Section Notes 01/01/2024 Primary hyperparathyroidism (ICD-10 - E21.0) 01/01/24----IPTH 242.0 , Ca 10.4. Plan to increase frequency of Sensipar 30mg daily to 60mg daily for better management ofhis iPTH. Continue with Calcitriol 0.25mcg 4x/week. 270lbs from 289bs weight today and patient same weight as last 3 months. 10/02/2023----IPTH 174, Ca 9.4. Plan to increase frequency [...] hypercalcemia could be from [facility]; primary hPTH; [place] or malignancy. Plan to obtain a nuclear scan of patient's parathyroid glands to determine hyperactivity of the glands. Plan also to monitor her urine electrolyte level to determine patient's urine calcium excretion. Treatment at this time with complete discontinuation of any vitamin D, dietary education of a low calcium, and plan to initiate treatment with Sensipar on return to clinic after diagnostic studies. 01/01/2024 Chronic kidney disease, stage 3a (ICD-10 - N18.31) 01/01/24---- Patient with eGFR of 48 ml/min from prior 44 ml/min consistent with CKD stage 3A. Patient with a UPCR 0.11 g/g, Uric acid 5.9, iPTH 242, Ca 10.4, Albumin 3.9, Phos 2.4. 10/02/2023--Patient with eGFR of 44ml/min from prior 56ml/min [...] start allopurinol 100mg daily. unable to take sensipar due to side effects. Will stop HCTZ [...] and their detrimental effects on renal function 04/08/2024 Primary hyperparathyroidism (ICD-10 - E21.0) 04/08/24-----iPTH 206.0, Ca 11.0. Plan to increase frequency of Sensipar 30mg daily to 60mg daily for better management of his iPTH. Disccontinue with Calcitriol 0.25mcg 4x/week 01/01/24____IPTH 242.0 , Ca 10.4. Plan to increase frequency of [...] hypercalcemia could be from [facility]; primary hPTH; [place] or malignancy. Plan to obtain a nuclear scan of patient's parathyroid glands to determine hyperactivity of the glands. Plan also to monitor her urine electrolyte level to determine patient's urine calcium excretion. Treatment at this time with complete discontinuation of any vitamin D, dietary education of a low calcium, and plan to initiate treatment with Sensipar on return to clinic after diagnostic studies. 04/11/2024 Primary hyperparathyroidism (ICD-10 - E21.0) 05/13/2024 Chronic kidney disease, stage 4 (severe) (ICD-10 - N18.4) 05/13/2024 Essential hypertension, benign (ICD-10 - I10) 05/13/24--- Patient is normotensive in office with readings of 120/56. Patient reports normotensive readings at home. Will continue with present treatment. 04/08/24__- Patient is normotensive in office with readings of 135/61. Patient reports normotensive readings at home. Will continue with Entresto 24/26mg daily__from cardiology and off his Losartan 100mg daily but continue Lasix 80mg BID. 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 . 01/01/24__- Patient is normotensive in office [...] and diastolic readings of 60 to 80. 07/01/2024 Essential hypertension, benign (ICD-10 - I10) 07/01/24- - Patient is normotensive in office [...] Lasix 80mg BID. 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 . 01/01/24__- Patient is normotensive in office [...] and diastolic readings of 60 to 80. 07/01/2024 Chronic kidney disease, stage 3b (ICD-10 - N18.32) 07/01/24- - eGFR 39ml/min from 26ml/min which is consistent with CKD Stage 3B. UPCR 0.11g/g, Uric acid 7.0, iPTH 182. ca 8.4, albumin 4.0, phos 3.1. Will decrease sensipar to 60mg 5/week from daily as calcium level has decreased and intact PTH has increased. +2 edema in BLE. Will continue with lasix 80mg BID, entresto, and aldactone 50mg daily. K 4.7. Will start metolazone 5mg x 3 days. 05/13/24- - Patient with eGFR of 26ml/min from prior 34ml/min consistent with CKD stage 4. Patient with a Uric acid 13.2, iPTH 166, Ca 8.8 from 9.6, Albumin 4.1, Phos 2.4__increase in diary product, K 2.3- - start Aldactone 50mg daily__continue with Lasix 80mg and ENtresto and Jardiance meds. , Patient was recently admitted to [facility] for peripheral vascular disease and had [...] start allopurinol 100mg daily. unable to take sensipar due to side effects. Will stop HCTZ [...] and their detrimental effects on renal function 07/15/2024 Electrolyte abnormality (ICD-10 - E87.8) 07/15/24- - NA 136, K 4.1, Cl 96, Co2 27, Albumin 4.2, Ca 8.9, phos 3.7, Mg 1.8. Will continue with allopurinol 200mg daily, magneisum 400mg daily, aldactone 50mg daily and decreased sensipar 60mg 5/week. Will stop lasix and start bumex 2mg BID and metolazone 2.5mg 3/week. 07/01/24- - Mg 1.7, Ca 8.4, albumin [...] dietary phosphorus and continue allopurinol 100mg daily. 10/02/2023--Na 136, K+ 4.2 Cl 101 Co2 24 Ca 9.4 Phos 2.5 Mg 2 and uric acid 6.7. Encourage 2 gram sodium diet, higher dietary phosphorus and continue allopurinol 100mg daily. 07/03/23--Na 135, K+ 4.3, Cl 100, Co2 25, Ca 8.7, Phos 2.5, Mg 1.9 and uric acid 6.8. Encourage 2 gram sodium diet, higher dietary phosphorus and continue allopurinol 100mg daily. 05/15/23--Uric acid 10.0. Start allopurinol 100mg daily 07/15/2024 Chronic kidney disease, stage 3b (ICD-10 - N18.32) 07/15/24--- Patient with eGFR of 31ml/min from prior 39ml/min consistent with CKD stage 3B. Patient with a Ca 8.9, Albumin 4.2, Phos 3.7. Continues with +2-3 edema in BLE with increased shortness of breath. Will stop lasix and start bumex 2mg BID. Patient reports he has been off jardiance because they ran out of samples at home. Has recently restarted that. Will start metolazone 2.5mg 3/week. Follow up in 2 weeks to reassess edema and electrolytes. 07/01/24- - eGFR 39ml/min from 26ml/min which is consistent with CKD Stage 3B. UPCR 0.11g/g, Uric acid 7.0, iPTH 182. ca 8.4, albumin 4.0, phos 3.1. Will decrease sensipar to 60mg 5/week from daily as calcium level has decreased and intact PTH has increased. +2 edema in BLE. Will continue with lasix 80mg BID, entresto, and aldactone 50mg daily. K 4.7. Will start metolazone 5mg x 3 days. 05/13/24- - Patient with eGFR of 26ml/min from prior 34ml/min consistent with CKD stage 4. Patient with a Uric acid 13.2, iPTH 166, Ca 8.8 from 9.6, Albumin 4.1, Phos 2.4__increase in diary product, K 2.3- - start Aldactone 50mg daily__continue with Lasix 80mg and ENtresto and Jardiance meds. , Patient was recently admitted to [facility] for peripheral vascular disease and had [...] start allopurinol 100mg daily. unable to take sensipar due to side effects. Will stop HCTZ [...] and their detrimental effects on renal function 08/26/2024 Essential hypertension, benign (ICD-10 - I10) 08/26/24- - - -Resolved NEO and resumed [...] Lasix 80mg BID. 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 . 01/01/24__- Patient is normotensive in office [...] and diastolic readings of 60 to 80. 08/26/2024 Chronic kidney disease, stage 3a (ICD-10 - N18.31) 08/26/24--Patient with eGFR 48ml/min from 29ml/min consistent with [...] [place], without Cinacalcet 30mg daily, and also disoontinue with Calcitriol 0.5mcg daily but continue with hyper-phosphatemia treatment with Phoslo 667mg qac. 07/01/24- - eGFR 39ml/min from 26ml/min which is consistent with CKD Stage 3B. UPCR 0.11g/g, Uric acid 7.0, iPTH 182. ca 8.4, albumin 4.0, phos 3.1. Will decrease sensipar to 60mg 5/week from daily as calcium level has decreased and intact PTH has increased. +2 edema in BLE. Will continue with lasix 80mg BID, entresto, and aldactone 50mg daily. K 4.7. Will start metolazone 5mg x 3 days. 05/13/24- - Patient with eGFR of 26ml/min from prior 34ml/min consistent with CKD stage 4. Patient with a Uric acid 13.2, iPTH 166, Ca 8.8 from 9.6, Albumin 4.1, Phos 2.4__increase in diary product, K 2.3- - start Aldactone 50mg daily__continue with Lasix 80mg and ENtresto and Jardiance meds. , Patient was recently admitted to [facility] for peripheral vascular disease and had [...] start allopurinol 100mg daily. unable to take sensipar due to side effects. Will stop HCTZ [...] and their detrimental effects on renal function 09/23/2024 Chronic kidney disease, stage 3b (ICD-10 - N18.32) 09/23/2024--- Patient with eGFR 34ml/min from 48ml/min consistent with CKD stage 3b. UPCR 0.16g/g, [id number], Uric Acid 5.3, Ca 11, Albumin 4.0, [...] meds. , Patient was recently admitted to [facility] for peripheral vascular disease and had [...] and their detrimental effects on renal function 09/23/2024 Essential hypertension, benign (ICD-10 - I10) 09/23/2024--- Resolved NEO and resumed Aldactone 50mg, Coreg [...] Lasix 80mg BID. 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 . 01/01/24__- Patient is normotensive in office [...] to monitor home blood pressue at home. 9/22/23__-In office blood pressure 123/68. Manual 115/62. Home [...] diastolic readings of 60 to 80. 11/11/2024 Essential hypertension, benign (ICD-10 - I10) [...] Lasix 80mg BID. 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 . 01/01/24__- Patient is normotensive in office [...] and diastolic readings of 60 to 80. 04/08/2024 Chronic kidney disease, stage 3a (ICD-10 - N18.31) 04/08/24--- Patient with eGFR of 47 ml/min from [...] start allopurinol 100mg daily. unable to take sensipar due to side effects. Will stop HCTZ [...] their detrimental effects on renal function 11/11/2024 Primary hyperparathyroidism (ICD-10 - E21.0) 11/11/2024- [...] hypercalcemia could be from [facility]; primary hPTH; [place] or malignancy. Plan to obtain a nuclear scan of patient's parathyroid glands to determine hyperactivity of the glands. Plan also to monitor her urine electrolyte level to determine patient's urine calcium excretion. Treatment at this time with complete discontinuation of any vitamin D, dietary education of a low calcium, and plan to initiate treatment with Sensipar on return to clinic after diagnostic studies. 09/23/2024 Primary hyperparathyroidism (ICD-10 - E21.0) 09/23/2024--- Ca 11.0, iPTH 120. Refer to Dr. [...] hypercalcemia could be from [facility]; primary hPTH; [place] or malignancy. Plan to obtain a nuclear scan of patient's parathyroid glands to determine hyperactivity of the glands. Plan also to monitor her urine electrolyte level to determine patient's urine calcium excretion. Treatment at this time with complete discontinuation of any vitamin D, dietary education of a low calcium, and plan to initiate treatment with Sensipar on return to clinic after diagnostic studies. 07/15/2024 Essential hypertension, benign (ICD-10 - I10) 07/15/24--- Patient is normotensive in office with readings of 132/72. Patient reports normotensive readings at home. Will continue with coreg 6.25mg BID, entresto 24-26mg BID, losartan 100mg daily and aldactone 50mg daily. Will stop lasix and start bumex 2mg BID. Will start metolazone 2.5mg 3/week. 07/01/24- - Patient is normotensive in office [...] Lasix 80mg BID. 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 . 01/01/24__- Patient is normotensive in office [...] and diastolic readings of 60 to 80. 08/26/2024 Primary hyperparathyroidism (ICD-10 - E21.0) 08/26/24- - - - Resolved severe admission [...] iPTH. Disccontinue with Calcitriol 0.25mcg 4x/week 01/01/24____IPTH 242.0 , Ca 10.4. Plan to increase frequency of [...] hypercalcemia could be from [facility]; primary hPTH; [place] or malignancy. Plan to obtain a nuclear scan of patient's parathyroid glands to determine hyperactivity of the glands. Plan also to monitor her urine electrolyte level to determine patient's urine calcium excretion. Treatment at this time with complete discontinuation of any vitamin D, dietary education of a low calcium, and plan to initiate treatment with Sensipar on return to clinic after diagnostic studies. 07/01/2024 Primary hyperparathyroidism (ICD-10 - E21.0) 07/01/24- - - Ca 8.4, iPTH 182. [...] iPTH. Disccontinue with Calcitriol 0.25mcg 4x/week 01/01/24____IPTH 242.0 , Ca 10.4. Plan to increase frequency of [...] hypercalcemia could be from [facility]; primary hPTH; [place] or malignancy. Plan to obtain a nuclear scan of patient's parathyroid glands to determine hyperactivity of the glands. Plan also to monitor her urine electrolyte level to determine patient's urine calcium excretion. Treatment at this time with complete discontinuation of any vitamin D, dietary education of a low calcium, and plan to initiate treatment with Sensipar on return to clinic after diagnostic studies. 05/13/2024 Primary hyperparathyroidism (ICD-10 - E21.0) 05/13/24-----iPTH 166.0, Ca 9.6. Plan to increase frequency of Sensipar 30mg daily to 60mg daily for better management of his iPTH. Disccontinue with Calcitriol 0.25mcg 4x/week 04/08/24-----iPTH 206.0, Ca 11.0. Plan to increase frequency of Sensipar 30mg daily to 60mg daily for better management of his iPTH. Disccontinue with Calcitriol 0.25mcg 4x/week 01/01/24____IPTH 242.0 , Ca 10.4. Plan to increase frequency of [...] hypercalcemia could be from [facility]; primary hPTH; [place] or malignancy. Plan to obtain a nuclear scan of patient's parathyroid glands to determine hyperactivity of the glands. Plan also to monitor her urine electrolyte level to determine patient's urine calcium excretion. Treatment at this time with complete discontinuation of any vitamin D, dietary education of a low calcium, and plan to initiate treatment with Sensipar on return to clinic after diagnostic studies. 04/08/2024 Essential hypertension, benign (ICD-10 - I10) 04/08/24--- Patient is normotensive in office with readings of 135/61. Patient reports normotensive readings at home. Will continue with Entresto 24/26mg daily--from cardiology and off his Losartan 100mg daily but continue Lasix 80mg BID. 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 . 01/01/24__- Patient is normotensive in office [...] and diastolic readings of 60 to 80. 01/01/2024 Hypercalcemia (ICD-1 0 - E83.52) 01/01/24---IPTH 242.0 , Ca 10.4. Plan to increase frequency of Sensipar 30mg daily to 60mg daily for better management ofhis iPTH. Continue with Calcitriol 0.25mcg 4x/week. 10/02/2023-------iIPT H 174, Ca 9.4. Plan to increase frequency of Sensipar 30mg from 5x/week to daily, and continue with Calcitriol 0.25mcg but increase frequency from 2X to 4x/week. 07/03/23__IPTH 117.9, Ca 8.7. Continue Sensipar 30 mg daily and start calcitriol 0.25mcg 3X week. Continue also with his Lasix 80mg daily. 05/15/23__iPTH 225.0, Ca 11.0. Denies sensipar due to side effects. medication reconciliation and discussed with the patient [...] excessive diarrhea occuring after the first dose. 02/13/23____-Hypercalc emia of known etiology of elevated iPTH based disease. Parathyroid scan demonstrates No parathyroid adenoma localized. Interpreted By Carmen Carr MD. Sensipar 30mg daily for now and re-eval in 4 weeks. 11/13/22____- Hypercalcemia of known etiology of elevated iPTH based disease. Plan to obtain a nuclear scan of patient's parathyroid glands to determine hyperactivity of the glands. Plan also to monitor her urine electrolyte level to determine patient's urine calcium excretion. Treatment at this time with complete discontinuation of any vitamin D, dietary education of a low calcium, and plan to initiate treatment with Sensipar on return to clinic after diagnostic studies. DC his Vit D med 04/08/2024 Electrolyte abnormality (ICD-10 - E87.8) 04/08/24----Na 136, K+ 3.7 Cl 98 Co2 27 Ca 11.0 Phos 1.8 Mg 1.6 and uric acid 7.6. Encourage 2 gram sodium diet, higher dietary phosphorus and continue allopurinol 100mg daily. 01/01/24----Na 138, K+ 4.4 Cl 102 Co2 25 Ca 10.4 Phos 2.4 Mg 2.1 and uric acid 5.9. Encourage 2 gram sodium diet, higher dietary phosphorus and continue allopurinol 100mg daily. 10/02/2023--Na 136, K+ 4.2 Cl 101 Co2 24 Ca 9.4 Phos 2.5 Mg 2 and uric acid 6.7. Encourage 2 gram sodium diet, higher dietary phosphorus and continue allopurinol 100mg daily. 07/03/23--Na 135, K+ 4.3, Cl 100, Co2 25, Ca 8.7, Phos 2.5, Mg 1.9 and uric acid 6.8. Encourage 2 gram sodium diet, higher dietary phosphorus and continue allopurinol 100mg daily. 05/15/23--Uric acid 10.0. Start allopurinol 100mg daily 01/01/2024 Essential hypertension, benign (ICD-10 - I10) 01/01/24--- Patient is normotensive in office with readings [...] and diastolic readings of 60 to 80. 05/13/2024 Electrolyte abnormality (ICD-10 - E87.8) 05/13/24---Na 139, K+ 3.4, Cl 95, Co2 29, Ca 9.6, Phos 2.1, Mg 1.6, and uric acid 13.2. Encourage 2 gram sodium diet, higher dietary phosphorus and continue allopurinol 100mg daily. 04/08/24----Na 136, K+ 3.7 Cl 98 Co2 27 Ca 11.0 Phos 1.8 Mg 1.6 and uric acid 7.6. Encourage 2 gram sodium diet, higher dietary phosphorus and continue allopurinol 100mg daily. 01/01/24----Na 138, K+ 4.4 Cl 102 Co2 25 Ca 10.4 Phos 2.4 Mg 2.1 and uric acid 5.9. Encourage 2 gram sodium diet, higher dietary phosphorus and continue allopurinol 100mg daily. 10/02/2023--Na 136, K+ 4.2 Cl 101 Co2 24 Ca 9.4 Phos 2.5 Mg 2 and uric acid 6.7. Encourage 2 gram sodium diet, higher dietary phosphorus and continue allopurinol 100mg daily. 07/03/23--Na 135, K+ 4.3, Cl 100, Co2 25, Ca 8.7, Phos 2.5, Mg 1.9 and uric acid 6.8. Encourage 2 gram sodium diet, higher dietary phosphorus and continue allopurinol 100mg daily. 05/15/23--Uric acid 10.0. Start allopurinol 100mg daily 07/01/2024 Electrolyte abnormality (ICD-10 - E87.8) 07/01/24- - Mg 1.7, Ca 8.4, albumin [...] dietary phosphorus and continue allopurinol 100mg daily. 10/02/2023--Na 136, K+ 4.2 Cl 101 Co2 24 Ca 9.4 Phos 2.5 Mg 2 and uric acid 6.7. Encourage 2 gram sodium diet, higher dietary phosphorus and continue allopurinol 100mg daily. 07/03/23--Na 135, K+ 4.3, Cl 100, Co2 25, Ca 8.7, Phos 2.5, Mg 1.9 and uric acid 6.8. Encourage 2 gram sodium diet, higher dietary phosphorus and continue allopurinol 100mg daily. 05/15/23--Uric acid 10.0. Start allopurinol 100mg daily 07/15/2024 Primary hyperparathyroidism (ICD-10 - E21.0) 07/15/24- - - Ca 8.9. Will continue with sensipar 60mg 5/week and repeat iPTH with next visit. 07/01/24- - - Ca 8.4, iPTH 182. [...] iPTH. Disccontinue with Calcitriol 0.25mcg 4x/week 01/01/24____IPTH 242.0 , Ca 10.4. Plan to increase frequency of [...] hypercalcemia could be from [facility]; primary hPTH; [place] or malignancy. Plan to obtain a nuclear scan of patient's parathyroid glands to determine hyperactivity of the glands. Plan also to monitor her urine electrolyte level to determine patient's urine calcium excretion. Treatment at this time with complete discontinuation of any vitamin D, dietary education of a low calcium, and plan to initiate treatment with Sensipar on return to clinic after diagnostic studies. 08/26/2024 Electrolyte abnormality (ICD-10 - E87.8) 08/26/24- - - -Na 137, K 4.9, Cl 103, CO2 24, Phos 2.4, ca 10.5, Glu 147. 08/26/24--Mg 2.2, Na 137, K 4.9, Cl 103, [...] dietary phosphorus and continue allopurinol 100mg daily. 10/02/2023--Na 136, K+ 4.2 Cl 101 Co2 24 Ca 9.4 Phos 2.5 Mg 2 and uric acid 6.7. Encourage 2 gram sodium diet, higher dietary phosphorus and continue allopurinol 100mg daily. 07/03/23--Na 135, K+ 4.3, Cl 100, Co2 25, Ca 8.7, Phos 2.5, Mg 1.9 and uric acid 6.8. Encourage 2 gram sodium diet, higher dietary phosphorus and continue allopurinol 100mg daily. 05/15/23--Uric acid 10.0. Start allopurinol 100mg daily 09/23/2024 Electrolyte abnormality (ICD-10 - E87.8) 09/23/2024--- Na 135, K 4.5, Cl 99, CO2 24, Phos 2.5, Ca 11.0, Mg 2.2. Continue with Allopurinol 200mg daily, lasix 40mg BID, magnesium 400mg daily, and aldactone 50mg daily 08/26/24- - - -Na 137, K 4.9, Cl 103, CO2 24, Phos 2.4, ca 10.5, Glu 147. 08/26/24--Mg 2.2, Na 137, K 4.9, Cl 103, [...] dietary phosphorus and continue allopurinol 100mg daily. 10/02/2023--Na 136, K+ 4.2 Cl 101 Co2 24 Ca 9.4 Phos 2.5 Mg 2 and uric acid 6.7. Encourage 2 gram sodium diet, higher dietary phosphorus and continue allopurinol 100mg daily. 07/03/23--Na 135, K+ 4.3, Cl 100, Co2 25, Ca 8.7, Phos 2.5, Mg 1.9 and uric acid 6.8. Encourage 2 gram sodium diet, higher dietary phosphorus and continue allopurinol 100mg daily. 05/15/23--Uric acid 10.0. Start allopurinol 100mg daily 11/11/2024 Electrolyte abnormality (ICD-10 - E87.8) 11/11/2024- [...] dosage of diuretic needed for that day. 09/23/2024 CHF (congestive hear t failure) (ICD-10 - I50.9) 09/23/2024- - --+2/4 LE edema in BLE. Will continue lasix [...] dosage of diuretic needed for that day. 08/26/2024 CHF (congestive hear t failure) (ICD-10 - I50.9) 08/26/24- - - - +2/4 LE edema [...] dosage of diuretic needed for that day. 07/15/2024 Hypercalcemia (ICD-1 0 - E83.52) 07/15/24- - - Ca 8.9, Will continue with sensipar 60mg 5/week and repeat iPTH with next visit. 07/01/24- - Ca 8.4, iPTH 182. Will decrease sensipar to 60mg 5/week. Continue off calcitriol at this time. 05/13/24- - -iPTH 166.0, Ca 9.6. Plan to increase frequency of Sensipar 30mg daily to 60mg daily for better management of his iPTH and Ca. Discontinue with Calcitriol 0.25mcg 4x/week medication and continue with only above Sensipar. .He was on Tums medication recently which accounts for his hypercalcemia. 04/08/24- - iPTH 206.0, Ca 11.0. Plan to increase frequency of Sensipar 30mg daily to 60mg daily for better management of his iPTH and Ca. Discontinue with Calcitriol 0.25mcg 4x/week medication and continue with only above Sensipar. .He was on Tums medication recently which accounts for his hypercalcemia. 01/01/24- -IPTH 242.0, Ca 10.4. Plan to increase frequency of Sensipar 30mg daily to 60mg daily for better management ofhis iPTH. Continue with Calcitriol 0.25mcg 4x/week. 10/02/2023- - - -iIPTH 174, Ca 9.4. Plan to increase frequency of Sensipar 30mg from 5x/week to daily, and continue with Calcitriol 0.25mcg but increase frequency from 2X to 4x/week. 07/03/23__IPTH 117.9, Ca 8.7. Continue Sensipar 30 mg daily and start calcitriol 0.25mcg 3X week. Continue also with his Lasix 80mg daily. 05/15/23__iPTH 225.0, Ca 11.0. Denies sensipar due to side effects. medication reconciliation and discussed with the patient [...] excessive diarrhea occuring after the first dose. 02/13/23____-Hypercalc emia of known etiology of elevated iPTH based disease. Parathyroid scan demonstrates No parathyroid adenoma localized. Interpreted By Carmen Carr MD. Sensipar 30mg daily for now and re-eval in 4 weeks. 11/13/22____- Hypercalcemia of known etiology of elevated iPTH based disease. Plan to obtain a nuclear scan of patient's parathyroid glands to determine hyperactivity of the glands. Plan also to monitor her urine electrolyte level to determine patient's urine calcium excretion. Treatment at this time with complete discontinuation of any vitamin D, dietary education of a low calcium, and plan to initiate treatment with Sensipar on return to clinic after diagnostic studies. DC his Vit D med 07/01/2024 Hypercalcemia (ICD-1 0 - E83.52) 07/01/24- - Ca 8.4, iPTH 182. Will decrease sensipar to 60mg 5/week. Continue off calcitriol at this time. 05/13/24- - -iPTH 166.0, Ca 9.6. Plan to increase frequency of Sensipar 30mg daily to 60mg daily for better management of his iPTH and Ca. Discontinue with Calcitriol 0.25mcg 4x/week medication and continue with only above Sensipar. .He was on Tums medication recently which accounts for his hypercalcemia. 04/08/24- - iPTH 206.0, Ca 11.0. Plan to increase frequency of Sensipar 30mg daily to 60mg daily for better management of his iPTH and Ca. Discontinue with Calcitriol 0.25mcg 4x/week medication and continue with only above Sensipar. .He was on Tums medication recently which accounts for his hypercalcemia. 01/01/24- -IPTH 242.0, Ca 10.4. Plan to increase frequency of Sensipar 30mg daily to 60mg daily for better management ofhis iPTH. Continue with Calcitriol 0.25mcg 4x/week. 10/02/2023- - - -iIPTH 174, Ca 9.4. Plan to increase frequency of Sensipar 30mg from 5x/week to daily, and continue with Calcitriol 0.25mcg but increase frequency from 2X to 4x/week. 07/03/23__IPTH 117.9, Ca 8.7. Continue Sensipar 30 mg daily and start calcitriol 0.25mcg 3X week. Continue also with his Lasix 80mg daily. 05/15/23__iPTH 225.0, Ca 11.0. Denies sensipar due to side effects. medication reconciliation and discussed with the patient [...] excessive diarrhea occuring after the first dose. 02/13/23____-Hypercalc emia of known etiology of elevated iPTH based disease. Parathyroid scan demonstrates No parathyroid adenoma localized. Interpreted By Carmen Carr MD. Sensipar 30mg daily for now and re-eval in 4 weeks. 11/13/22____- Hypercalcemia of known etiology of elevated iPTH based disease. Plan to obtain a nuclear scan of patient's parathyroid glands to determine hyperactivity of the glands. Plan also to monitor her urine electrolyte level to determine patient's urine calcium excretion. Treatment at this time with complete discontinuation of any vitamin D, dietary education of a low calcium, and plan to initiate treatment with Sensipar on return to clinic after diagnostic studies. DC his Vit D med 05/13/2024 Hypercalcemia (ICD-1 0 - E83.52) 05/13/24--- -iPTH 166.0, Ca 9.6. Plan to increase frequency of Sensipar 30mg daily to 60mg daily for better management of his iPTH and Ca. Discontinue with Calcitriol 0.25mcg 4x/week medication and continue with only above Sensipar. .He was on Tums medication recently which accounts for his hypercalcemia. 04/08/24----iPTH 206.0, Ca 11.0. Plan to increase frequency of Sensipar 30mg daily to 60mg daily for better management of his iPTH and Ca. Discontinue with Calcitriol 0.25mcg 4x/week medication and continue with only above Sensipar. .He was on Tums medication recently which accounts for his hypercalcemia. 01/01/24---IPTH 242.0, Ca 10.4. Plan to increase frequency of Sensipar 30mg daily to 60mg daily for better management ofhis iPTH. Continue with Calcitriol 0.25mcg 4x/week. 10/02/2023-------iIPT H 174, Ca 9.4. Plan to increase frequency of Sensipar 30mg from 5x/week to daily, and continue with Calcitriol 0.25mcg but increase frequency from 2X to 4x/week. 07/03/23__IPTH 117.9, Ca 8.7. Continue Sensipar 30 mg daily and start calcitriol 0.25mcg 3X week. Continue also with his Lasix 80mg daily. 05/15/23__iPTH 225.0, Ca 11.0. Denies sensipar due to side effects. medication reconciliation and discussed with the patient [...] excessive diarrhea occuring after the first dose. 02/13/23____-Hypercalc emia of known etiology of elevated iPTH based disease. Parathyroid scan demonstrates No parathyroid adenoma localized. Interpreted By Carmen Carr MD. Sensipar 30mg daily for now and re-eval in 4 weeks. 11/13/22____- Hypercalcemia of known etiology of elevated iPTH based disease. Plan to obtain a nuclear scan of patient's parathyroid glands to determine hyperactivity of the glands. Plan also to monitor her urine electrolyte level to determine patient's urine calcium excretion. Treatment at this time with complete discontinuation of any vitamin D, dietary education of a low calcium, and plan to initiate treatment with Sensipar on return to clinic after diagnostic studies. 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 Continue with strict glucose management and monitoring. Continue diabetic diet. 10/02/2023--- Glucose at time of lab draw 164. [...] recommendations for a strict ADA 2000calorie diet. 04/08/2024 Hypercalcemia (ICD-1 0 - E83.52) 04/08/24----iPTH 206.0, Ca 11.0. Plan to increase frequency of Sensipar 30mg daily to 60mg daily for better management of his iPTH and Ca. Discontinue with Calcitriol 0.25mcg 4x/week medication and continue with only above Sensipar. .He was on Tums medication recently which accounts for his hypercalcemia. 01/01/24---IPTH 242.0, Ca 10.4. Plan to increase frequency of Sensipar 30mg daily to 60mg daily for better management ofhis iPTH. Continue with Calcitriol 0.25mcg 4x/week. 10/02/2023-------iIPT H 174, Ca 9.4. Plan to increase frequency of Sensipar 30mg from 5x/week to daily, and continue with Calcitriol 0.25mcg but increase frequency from 2X to 4x/week. 07/03/23__IPTH 117.9, Ca 8.7. Continue Sensipar 30 mg daily and start calcitriol 0.25mcg 3X week. Continue also with his Lasix 80mg daily. 05/15/23__iPTH 225.0, Ca 11.0. Denies sensipar due to side effects. medication reconciliation and discussed with the patient [...] excessive diarrhea occuring after the first dose. 02/13/23____-Hypercalc emia of known etiology of elevated iPTH based disease. Parathyroid scan demonstrates No parathyroid adenoma localized. Interpreted By Carmen Carr MD. Sensipar 30mg daily for now and re-eval in 4 weeks. 11/13/22____- Hypercalcemia of known etiology of elevated iPTH based disease. Plan to obtain a nuclear scan of patient's parathyroid glands to determine hyperactivity of the glands. Plan also to monitor her urine electrolyte level to determine patient's urine calcium excretion. Treatment at this time with complete discontinuation of any vitamin D, dietary education of a low calcium, and plan to initiate treatment with Sensipar on return to clinic after diagnostic studies. DC his Vit D med 04/08/2024 CHF (congestive hear t failure) (ICD-10 - I50.9) 04/08/24---Continue lasix 80 mg daily, FR 48 ounces [...] dosage of diuretic needed for that day. 01/01/2024 CHF (congestive hear t failure) (ICD-10 - I50.9) 01/01/24----Continue lasix 80 mg daily, FR 48 ounces and daily weight. Patient to take Lasix 80mg and 40mg for weight above 280lbs. 10/02/2023--Continue lasix 80 mg daily, FR 48 ounces [...] dosage of diuretic needed for that day. 05/13/2024 CHF (congestive hear t failure) (ICD-10 - I50.9) 05/13/24---Continue lasix 80 mg daily, FR 48 ounces and daily weight. Patient to take Lasix 80mg BID for better edema management. 04/08/24---Continue lasix 80 mg daily, FR 48 ounces [...] dosage of diuretic needed for that day. 07/01/2024 CHF (congestive hear t failure) (ICD-10 - I50.9) 07/01/24--- +2 edema in BLE. Will continue lasix 80mg BID, entresto 24-26mg BID, and aldactone 50mg daily. K 4.7, will start metolazone 5mg daily x 3 days and repeat labs and follow up in 1 week. 05/13/24---Continue lasix 80 mg daily, FR 48 ounces [...] dosage of diuretic needed for that day. 07/15/2024 CHF (congestive hear t failure) (ICD-10 - I50.9) 07/15/24- - +2-3 edema in BLE. Will continue entresto 24-26mg BID, and aldactone 50mg daily. K 4.1, will stop lasix and start bumex 2mg BID and metolazone 2.5mg 3/week. 07/01/24- - +2 edema in BLE. Will [...] dosage of diuretic needed for that day. 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 [...] for a strict ADA 2000calorie diet. 11/11/2024 Diabetes mellitus type 2 with complications [...] physician, with recommendations for a strict ADA 1999calorie diet. 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 Recommendation [...] physician, with recommendations for a strict ADA 1999calorie diet. 11/11/2024 Chronic kidney disease, stage 3a [...] consistent with CKD stage 3b. UPCR 0.16g/g, [id number], Uric Acid 5.3, Ca 11, Albumin 4.0, [...] meds. 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 Continue with strict glucose management and monitoring. [...] recommendations for a strict ADA 2000calorie diet. 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 Continue with strict glucose management and monitoring. Continue diabetic diet. 04/08/24---Glucose at time of lab draw 195. Continue [...] physician, with recommendations for a strict ADA 1999calorie diet. 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 Continue with strict glucose management and monitoring. Continue diabetic diet. 01/01/24--- Glucose at time of lab draw 147. [...] recommendations for a strict ADA 2000calorie diet. 01/01/2024 Electrolyte abnormality (ICD-10 - E87.8) 01/01/24----Na 138, K+ 4.4 Cl 102 Co2 25 Ca 10.4 Phos 2.4 Mg 2.1 and uric acid 5.9. Encourage 2 gram sodium diet, higher dietary phosphorus and continue allopurinol 100mg daily. 10/02/2023--Na 136, K+ 4.2 Cl 101 Co2 24 Ca 9.4 Phos 2.5 Mg 2 and uric acid 6.7. Encourage 2 gram sodium diet, higher dietary phosphorus and continue allopurinol 100mg daily. 07/03/23--Na 135, K+ 4.3, Cl 100, Co2 25, Ca 8.7, Phos 2.5, Mg 1.9 and uric acid 6.8. Encourage 2 gram sodium diet, higher dietary phosphorus and continue allopurinol 100mg daily. 05/15/23--Uric acid 10.0. Start allopurinol 100mg daily 11/11/2024 Other 05/13/2024 Other 05/13/24--- Patient with eGFR of 26ml/min from prior 34ml/min consistent with CKD stage 4. Patient with a Uric acid 13.2, iPTH 166, Ca 8.8 from 9.6, Albumin 4.1, Phos 2.4--increase in diary product, K 2.3----start Aldactone 50mg daily--continue with Lasix 80mg and ENtresto and Jardiance meds. , Patient was recently admitted to [facility] for peripheral vascular disease and had [...] start allopurinol 100mg daily. unable to take sensipar due to side effects. Will stop HCTZ [...] and their detrimental effects on renal function Plan Of Treatment Pending Test Test Name Order Date Phosphorus, Serum 11/11/2024 Phosphorus, Serum 11/14/2022 Phosphorus, Serum 12/12/2022 Phosphorus, Serum 02/13/2023 Phosphorus, Serum 03/20/2023 Phosphorus, Serum 05/15/2023 Phosphorus, Serum 07/03/2023 Phosphorus, Serum 10/02/2023 Phosphorus, Serum 01/01/2024 Phosphorus, Serum 04/08/2024 Phosphorus, Serum 05/13/2024 Phosphorus, Serum 07/15/2024 Phosphorus, Serum 07/01/2024 Phosphorus, Serum 08/26/2024 Phosphorus, Serum 09/23/2024 Uric Acid, Serum 07/15/2024 Uric Acid, Serum 08/26/2024 Uric Acid, Serum 09/23/2024 Uric Acid, Serum 05/13/2024 Uric Acid, Serum 04/08/2024 Uric Acid, Serum 01/01/2024 Uric Acid, Serum 10/02/2023 Uric Acid, Serum 05/15/2023 Uric Acid, Serum 07/03/2023 Uric Acid, Serum 03/20/2023 Uric Acid, Serum 02/13/2023 Uric Acid, Serum 12/12/2022 Uric Acid, Serum 11/14/2022 Uric Acid, Serum 11/11/2024 Magnesium, Serum 11/11/2024 Magnesium, Serum 11/14/2022 Magnesium, Serum 02/13/2023 Magnesium, Serum 03/20/2023 Magnesium, Serum 05/13/2024 Magnesium, Serum 07/15/2024 Magnesium, Serum 07/01/2024 Complement C4, Serum 11/14/2022 Protein Electro, 24-Hour Urine Creatine+Creatinine, 24-Hr Ur 11/14/2022 TSH 11/14/2022 TSH 05/13/2024 Complement C3, Serum 11/14/2022 PTH, Intact 11/14/2022 PTH, Intact 12/12/2022 PTH, Intact 07/03/2023 PTH, Intact 10/02/2023 PTH, Intact 05/15/2023 PTH, Intact 05/13/2024 PTH, Intact 01/01/2024 PTH, Intact 04/08/2024 PTH, Intact 08/26/2024 PTH, Intact 09/23/2024 Vitamin D, 25-Hydroxy 11/14/2022 Hepatitis Panel (4) 11/14/2022 Renal Panel (10) 11/14/2022 Renal Panel (10) 11/11/2024 Renal Panel (10) 02/13/2023 Renal Panel (10) 03/20/2023 Renal Panel (10) 07/01/2024 Renal Panel (10) 05/13/2024 Renal Panel (10) 07/15/2024 CBC 04/08/2024 CBC 01/01/2024 CBC 07/15/2024 CBC 08/26/2024 CBC 09/23/2024 CBC 07/03/2023 CBC 10/02/2023 CBC 02/13/2023 CBC 05/15/2023 CBC 03/20/2023 CBC 11/11/2024 CBC 12/12/2022 Urinalysis (hospital) 11/14/2022 Urine Culture and Sensitivity 05/13/2024 Ultrasound : Kidneys and Bladder 023 Urinalysis 12/12/2022 urine protein 11/14/2022 urine protein 05/13/2024 urine creatinine 05/13/2024 urine creatinine 11/14/2022 RENAL PANEL 12/12/2022 RENAL PANEL 05/15/2023 RENAL PANEL 07/03/2023 RENAL PANEL 10/02/2023 RENAL PANEL 01/01/2024 RENAL PANEL 04/08/2024 RENAL PANEL 08/26/2024 RENAL PANEL 09/23/2024 HEMOGLOBIN A1C 05/13/2024 HEMOGLOBIN A1C 11/14/2022 PARATHYROID SPECT WITH MED 12/12/2022 Magnesium Level 12/12/2022 Magnesium Level 07/03/2023 Magnesium Level 10/02/2023 Magnesium Level 05/15/2023 Magnesium Level 04/08/2024 Magnesium Level 01/01/2024 Magnesium Level 09/23/2024 Magnesium Level 08/26/2024 Parathyroid Hormone Intact 07/15/2024 Parathyroid Hormone Intact 03/20/2023 Parathyroid Hormone Intact 02/13/2023 Parathyroid Hormone Intact 11/11/2024 Urinalysis with Culture if indicated Urinalysis with Culture if indicated Urinalysis with Culture if indicated Urinalysis with Culture if indicated 01/2024 Urinalysis with Culture if indicated Urinalysis with Culture if indicated 08/2024 Urinalysis with Culture if indicated 06/2024 Urinalysis with Culture if indicated 02/2024 Urinalysis with Culture if indicated 01/2024 Urinalysis with Culture if indicated Urinalysis with Culture if indicated Urine Protein Creatinine Ratio 5 Urine Protein Creatinine Ratio 4 Urine Protein Creatinine Ratio 4 Urine Protein Creatinine Ratio 5 Urine Protein Creatinine Ratio 5 Urine Protein Creatinine Ratio 4 Urine Protein Creatinine Ratio 4 Urine Protein Creatinine Ratio 3 Urine Protein Creatinine Ratio 3 Urine Protein Creatinine Ratio 3 Urine Protein Creatinine Ratio 3 Urine Protein Creatinine Ratio 3 Urine Protein Creatinine Ratio 5 Cystatin C with Estimated GFR,[facility] Cystatin C with Estimated GFR,[facility] Next Appt Details Provider Name:Bobo Ignacio, 12/09/2024 02:30:00 PM, [address] [place], [address], Insurance Providers Payer Name Payer Address Payer Phone Subscriber Number Group Number Insured Name Patient Relationship to Insured Coverage Start Date Coverage End Date [place] [address] [place] [address] [id number] Piotr Kerr Self - patient is the insured 5 Medical (General) History Medical History History ICD Code Abnormal stress test Benign HTN BPH Coronary artery disease COVID-19 Hyperlipidemia History of stoke Hypoxia Incomplete emptying bladder NSTEMI CHRIS S/P angioplasty with sent Type 2 Diabetes Weakness Urinary retention Lightheaded Neuropathy CKD stage 3 CHF Block arteries Surgical History Surgery Date(Month/Year) Prostate Sx 2022 Angioplasty with stent 2019 Lymph Node removed 1960 Vascular procedure 02/2024 Hospitalization History Reason Date(Month/Year) Fluid Retention 2022 COVID-19 Stroke
--- OUTSIDE RECORDS SUMMARY | 2024-11-15 14:13 | XMS_ITS | Clinical Summary ---
Author Organization [facility] tem Address [id number] [address] [place] [address] Care Team Providers Care Pipe Inspector Name Role Phone Unavailable Primary Care Provider Unavailabl e Encounters Date Type Department Care Team Description 10/05/2024 Telephone [facility] [address] [place] [phone] Rosario Dennison from Last 3 Months Social History Tobacco Use Types Packs/Day Years Used Date Smoking Tobacco: Never Assessed Childcare Answer Date Recorded Childcare Unknown 09/30/2019 Employment Answer Date Recorded Employment Unknown 09/30/2019 Purpose - Life Answer Date Recorded Purpose and direction in life Unknown Sex and Gender Information Value Date Recorded Sex Assigned at Not on file Legal Sex Male 9:46 AM EDT Gender Identity Not on file Sexual Orientation Not on file Plan of Treatment Not on file Medical Devices Not on file Insurance [facility] MEDICARE [facility]
--- OUTSIDE RECORDS SUMMARY | 2024-11-15 14:13 | XMS_ITS | Patient Health Record ---
Author Organization [facility] Address [address] [place] [address] Care Team Providers Care Fiscal Clerk Name Role Phone Adalid Paula Unavailable [phone] Reason For Referral No Information Problems Problem Type SNOMED Code ICD Code Onset Dates Problem Status W/U Status Risk Notes Problem Peripheral venous insufficiency (78626438) Venous insufficiency (chronic) (peripheral) (I87.2) Active confirmed Problem Cellulitis of right lower limb (3215644374480025 4) Cellulitis of right lower limb (L03.115) Active confirmed Problem Cellulitis of left lower limb (5512151854035820 9) Cellulitis of left lower limb (L03.116) Active confirmed Problem Peripheral vascular disease (373238993) PVD (peripheral vascular disease) (I73.9) Active confirmed Problem Lymphedema (40159731) Lymphedema (I89.0) Active confirmed Encounters Encounter Location Date Provider Diagnosis [facility] [address] [place] [address] 02/26/2024 Adalid Paula PVD (peripheral vascular disease) I73.9 ; Lymphedema I89.0 ; Cellulitis of right lower limb L03.115 ; Cellulitis of left lower limb L03.116 and Venous insufficiency (chronic) (peripheral) I87.2 Assessments Encounter Date Diagnosis (ICD Code) Assessment Notes Treatment Notes Treatment Clinical Notes Section Notes 02/26/2024 PVD (peripheral vascular disease) (ICD-10 - I73.9) 02/26/2024 Lymphedema (ICD-10 - I89.0) 02/26/2024 Cellulitis of right lower limb (ICD-10 - L03.115) 02/26/2024 Cellulitis of left lower limb (ICD-10 - L03.116) 02/26/2024 Venous insufficiency (chronic) (peripheral) (ICD-10 - I87.2) Plan Of Treatment No Information Insurance Providers Payer Name Payer Address Payer Phone Subscriber Number Group Number Insured Name Patient Relationship to Insured Coverage Start Date Coverage End Date [facility] [address] [place] [phone] [id number] Piotr Kerr Self - patient is the insured
--- NOTE | 2024-11-15 14:33 | CT_ITS ---
The [address] [address] Patient Name: MONICO SANCHEZ MRN: [id number] date: 1960 Sex: M Assigned Patient Location: ER Current Patient Location: ER Accession/Order Number: [id number] Exam Date: 11/15/2024 15:39 Report Date: 11/15/2024 15:45 At the request of: CARLEY TAYLOR MD Procedure: CT abdomen pelvis w con CT ABDOMEN AND PELVIS WITH INTRAVENOUS CONTRAST: CLINICAL HISTORY: low abd pain, poss constipation recent enema use. COMPARISON: CT abdomen and pelvis 07/30/2024 TECHNIQUE: Spiral images were obtained through the abdomen and pelvis following the administration of intravenous contrast. This CT exam was performed using one or more following dose reduction techniques: Automated exposure control, adjustment of the mA and/or kV according to patient size, or use of iterative reconstruction technique. FINDINGS: Lung Bases: [Bibasilar atelectasis.] Organs:Cholelithiasis. Liver portal vein pancreas spleen and adrenal glands all appear unremarkable. No enhancing renal mass or hydronephrosis. Abdominal aorta appears normal in caliber.[ GI: Stomach is grossly unremarkable. Small bowel appears nondilated. Colon appears fluid-filled with stool seen within the rectum. No abnormal wall thickening or inflammatory change.[Appendix normal. Pelvis:[Urinary bladder is grossly unremarkable. Prostate gland normal in size.] Peritoneum/Retroperitoneum:No free air or free fluid or lymphadenopathy. Haziness involving the mesentery similar to the prior study.[ Abd wall/Bones:Abdominal wall demonstrate no acute process. Osseous structures demonstrate degenerative change.[ CT/CT abdomen pelvis w con IMPRESSION: Fluid is seen within the colon possibly related to the patient's recent enema use. No wall thickening or inflammatory changes to suggest colitis. Haziness involving the mesentery similar to the prior study. Repeat CT in 6 months is recommended to ensure stability. Cholelithiasis. Impression dictated by: Werner Alvarado Jr., D.O. 11/15/2024 3:45 PM Dictation Location: [place] [address] Electronically authenticated by: [id number] Y Date: 11/15/2024 15:45
--- NOTE | 2024-11-15 14:33 | ED.GENADUL1 ---
HPI HPI - General Adult General Chief complaint: Abdominal Pain Stated complaint: ABDOMINAL PAIN CONSTIPATION Time Seen by Provider: 11/15/24 14:28 Source: patient Mode of arrival: Wheelchair Limitations: no limitations History of Present Illness HPI narrative: 64-year-old male presents to the emergency department for lower abdominal pain. He believes he might be constipated. The last good bowel movement was 3 or 4 days ago. He tried an enema at home without much relief and his bowel movements have been hard. He is not on any prescription pain medications. Related Data Previous Rx's ?Medication ?Instructions ?Recorded cephalexin 250 mg capsule 250 mg PO BID 7 days #14 caps 07/30/24 polyethylene glycol 3350 17 17 g PO DAILY PRN constipation 07/30/24 gram/dose oral powder (Miralax) #510 grams solifenacin 5 mg tablet (Vesicare) 5 mg PO DAILY 10 days #10 tabs 08/02/24 Allergies Allergy/AdvReac Type Severity Reaction Status Date / Time metoprolol Allergy Unknown Unknown Verified 07/30/24 12:14 ciprofloxacin AdvReac Mild itching Verified 07/30/24 12:14 dapagliflozin (From Farxiga) AdvReac Mild itching Verified 07/30/24 12:14 Review of Systems ROS Narrative A ten point review of systems is negative except as noted above. PFSH PFSH Social History Little interest or pleasure in doing things: not at all Feeling down, depressed, or hopeless: not at all Exam Narrative Exam Narrative: Nurses note and vital signs reviewed and patient is not hypoxic. General: The patient appears in no apparent distress. Skin: Warm, dry, no pallor noted. There is no rash noted. Head: Normocephalic, atraumatic Eye: Normal conjunctiva, no drainage Ears, Nose, Mouth, and Throat: oral mucosa is moist. Nares patent. Cardiovascular: Regular Rate and Rhythm Respiratory: Patient is in no distress, no accessory muscle use, lungs are clear to auscultation, no wheezing, rales or rhonchi Back: non-tender GI: Obese, soft, no masses Musculoskeletal: The patient has no evidence of calf tenderness, symmetrical pulses noted bilaterally Neurological: A&O, normal speech Psychiatric: Cooperative Constitutional Vital Signs, click to edit/add: Last Vital Signs Temp 98.7 F 11/15/24 14:08 Pulse 73 11/15/24 14:08 Resp 20 11/15/24 14:08 BP 140/70 11/15/24 14:08 Pulse Ox 93 L 11/15/24 14:08 O2 Del Method Room Air 11/15/24 14:08 Course Vital Signs Vital signs: Vital Signs Temperature 98.7 F 11/15/24 14:08 Pulse Rate 73 11/15/24 14:08 Respiratory Rate 20 11/15/24 14:08 Blood Pressure 140/70 11/15/24 14:08 Pulse Oximetry 93 L 11/15/24 14:08 Oxygen Delivery Method Room Air 11/15/24 14:08 Temperature 98.7 F 11/15/24 14:08 Pulse Rate 73 11/15/24 14:08 Respiratory Rate 11/15/24 14:08 Blood Pressure 140/70 11/15/24 14:08 Pulse Oximetry 93 L 11/15/24 14:08 Oxygen Delivery Method Room Air 11/15/24 14:08 Medical Decision Making MDM Narrative Medical decision making narrative: His workup is negative including CAT scan of the abdomen which shows no evidence of constipation or diverticulitis or colitis. He is discharged home and findings were discussed thoroughly with the patient and his . Differential Diagnosis Differential Diagnosis: Constipation, diverticulitis, colitis Lab Data Lab results reviewed: Yes I reviewed the patient's lab results Labs: Lab Results 11/15/24 11/15/24 Range/Units 14:20 14:35 WBC 8.8 (4.0-11.0) 10^3/uL RBC 4.06 L (4.70-6.10) 10^6/uL Hgb 12.5 L (14.0-18.0) g/dL Hct 37.1 L (42.0-54.0) % MCV 91.4 (80.0-94.0) fL MCH 30.8 (25.9-34.0) pg MCHC 33.7 (29.9-35.2) g/dL RDW 13.0 (11.0-15.0) % Plt Count 308 (150-450) 10^3/uL MPV 10.7 (9.5-13.5) fL Neut % (Auto) 71.4 (43.0-75.0) % Lymph % (Auto) 15.8 L (20.5-60.0) % [place] % (Auto) 11.2 (1.7-12.0) % Eos % (Auto) 1.1 (0.9-7.0) % Baso % (Auto) 0.2 (0.2-2.0) % Neut # (Auto) 6.3 (1.4-6.5) 10^3/uL Lymph # (Auto) 1.4 (1.2-3.8) 10^3/uL [place] # (Auto) 1.0 H (0.3-0.8) 10^3/uL Eos # (Auto) 0.1 (0.0-0.7) 10^3/uL Baso # (Auto) 0.0 (0.0-0.1) 10^3/uL Abs Immat Gran (auto) 0.03 (0.00-0.03) 10^3/uL Imm/Tot Granulo (auto) 0.3 (0.0-0.5) % Sodium 138 (136-145) mmol/L Potassium 4.1 (3.5-5.1) mmol/L Chloride 101 (98-107) mmol/L Carbon Dioxide 28.8 (21.0-32.0) mmol/L Anion Gap 12.3 BUN 34.0 H (7.0-18.0) mg/dL Creatinine 1.63 H (0.70-1.30) mg/dL Est GFR ( Amer) 52 L (>=60 mL/min/1.73m^2) Est GFR (Non-Af Amer) 43 L (>=60 mL/min/1.73m^2) BUN/Creatinine Ratio 20.9 Glucose 126 H (74-106) mg/dL Calcium 10.2 H (8.5-10.1) mg/dL Urine Color Lt. yellow (YELLOW) Urine Clarity Clear (CLEAR) Urine pH 7.5 (5.0-9.0) Ur Specific Irving <=1.005 A (1.005-1.025) Urine Protein Negative (NEG/TRACE) mg/dL Urine Glucose (UA) >=1000 A (NEGATIVE) mg/dL Urine Ketones Negative (NEGATIVE) mg/dL Urine Occult Blood Negative (NEGATIVE) Urine Nitrite Negative (NEGATIVE) Urine Bilirubin Negative (NEGATIVE) Urine Urobilinogen 0.2 (0.2-1.0) EU/dL Ur Leukocyte Esterase Negative (NEGATIVE) Urine RBC None seen (0-2) #/HPF Urine WBC None seen (NONE SEEN) #/HPF Ur Squamous Epith Cells None seen (NONE/RARE) #/LPF Urine Crystals None seen (None Seen) #/HPF Urine Bacteria Trace A (NONE SEEN) #/HPF Urine Casts None seen (NONE SEEN) #/LPF Urine Mucus None seen (NONE SEEN) Ur Culture Indicated? No Imaging Data CT scan - abdomen: Radiologist's impression: ITS Impressions Abdomen/Pelvis CT 11/15/24 14:33 IMPRESSION: Fluid is seen within the colon possibly related to the patient's recent enema use. No wall thickening or inflammatory changes to suggest colitis. Haziness involving the mesentery similar to the prior study. Repeat CT in 6 months is recommended to ensure stability. Cholelithiasis. Impression dictated by: Werner Alvarado Jr., D.O. 11/15/2024 3:45 PM Dictation Location[facility] Electronically authenticated by: [id number] Y Date: 11/15/2024 15:45 Discharge Plan Discharge Chief Complaint: Abdominal Pain Clinical Impression: Abdominal pain Patient Disposition: Home, Self-Care Time of Disposition Decision: 16:05 Condition: Good Mode of Transportation: Private Vehicle Prescriptions / Home Meds: No Action cephalexin 250 mg capsule 250 mg PO BID 7 Days Qty: 14 0RF polyethylene glycol 3350 [Miralax] 17 gram/dose powder 17 g PO DAILY PRN (Reason: constipation) Qty: 510 0RF solifenacin [Vesicare] 5 mg tablet 5 mg PO DAILY 10 Days Qty: 10 0RF Print Language: Latvian Instructions: Abdominal Pain (ED) Referrals: Kelby Warner DO [Primary Care Provider, Internal Medicine] - 1 week
[2024-11-15 14:45] LABS: Basophils Percent Auto 0.2 % (0.2-2.0); Eosinophils Absolute Auto 0.1 10^3/uL (0.0-0.7); Eosinophils Percent Auto 1.1 % (0.9-7.0); Hematocrit 37.1 % (42.0-54.0); Hemoglobin 12.5 g/dL (14.0-18.0); Immature Granulocytes Abs Auto 0.03 10^3/uL (0.00-0.03); Immature Granulocytes Pct Auto 0.3 % (0.0-0.5); Lymphocytes Absolute Auto 1.4 10^3/uL (1.2-3.8); Lymphocytes Percent Auto 15.8 % (20.5-60.0); Mean Corpuscular HGB Conc 33.7 g/dL (29.9-35.2); Mean Corpuscular Hemoglobin 30.8 pg (25.9-34.0); Mean Corpuscular Volume 91.4 fL (80.0-94.0); Mean Platelet Volume 10.7 fL (9.5-13.5); Monocytes Percent Auto 11.2 % (1.7-12.0); Neutrophils Absolute Auto 6.3 10^3/uL (1.4-6.5); Neutrophils Percent Auto 71.4 % (43.0-75.0); Platelet Count 308 10^3/uL (150-450); Red Blood Count 4.06 10^6/uL (4.70-6.10); White Blood Count 8.8 10^3/uL (4.0-11.0)
[2024-11-15 14:52] LABS: Anion Gap 12.3; BUN Creatinine Ratio 20.9; Calcium 10.2 mg/dL (8.5-10.1); Carbon Dioxide 28.8 mmol/L (21.0-32.0); Chloride 101 mmol/L (98-107); Estimated GFR (African America 52 (>=60 mL/min/1.73m^2); Estimated GFR (Non-African Ame 43 (>=60 mL/min/1.73m^2); Glucose 126 mg/dL (74-106); Potassium 4.1 mmol/L (3.5-5.1); Sodium 138 mmol/L (136-145)
[2024-11-15 15:07] LABS: Bilirubin Urine NEGATIVE (NEGATIVE); Blood Urine NEGATIVE (NEGATIVE); Clarity Urine CLEAR (CLEAR); Color Urine LT. YELLOW (YELLOW); Glucose Urine UA >=1000 mg/dL (NEGATIVE); Ketones Urine NEGATIVE (NEGATIVE); Leukocyte Esterase Urine NEGATIVE (NEGATIVE); Nitrite Urine NEGATIVE (NEGATIVE); Protein Urine NEGATIVE (NEG/TRACE); Specific Gravity Urine <=1.005 (1.005-1.025); Urobilinogen Urine 0.2 EU/dL (0.2-1.0); pH Urine 7.5 (5.0-9.0)
[2024-11-15 15:14] LABS: Bacteria Urine TRACE #/HPF (NONE SEEN); Cast Seen? NONE SEEN #/LPF (NONE SEEN); Crystals Seen? None Seen #/HPF (None Seen); Mucus Urine NONE SEEN (NONE SEEN); RBC Urine NONE SEEN #/HPF (0-2); Squamous Epithelial Cell Urine NONE SEEN #/LPF (NONE/RARE); Urine Culture Indicated NO; WBC Urine NONE SEEN #/HPF (NONE SEEN)
== END 2024-11-15 17:31 | disposition home or self-care (01) ==
PROVIDERS: Emergency Provider Emergency Medicine; PCP Internal Medicine
DX: R10.30 Lower abdominal pain, unspecified (principal); K80.20 Calculus of gallbladder without cholecystitis without obstruction
CPT/HCPCS: 36415; 74177; 80048; 81001; 85025; 99285; Q9966

== ENCOUNTER 2025-01-29 13:56 | Inpatient (IN) | payer MEDICARE, SELFPAY ==
--- OUTSIDE RECORDS SUMMARY | 2024-10-14 13:00 | XMS_ITS ---
Author Organization [facility] Address [address] [place] [address] Care Team Providers Care Tow Truck Dispatcher Name Role Phone christine rae Primary Care Provider Harrison Mcdermott Unavailable [phone] Encounters Encounter Location Date Provider Diagnosis [facility] [address] [place] [address] 10/14/2024 Harrison Beltran Plan Of Treatment Next Appt Details Provider Name:Harrison alvarenga, 03/10/2025 01:15:00 PM, [address] [facility] [address], [place], [address], Progress Notes * Sivakumar KERROB:1960 (64 yo M)Acc No.[id number]:10/14/2024 Progress Notes Patient: Piotr ROBERTS Provider: Winston Beltran DO :1960 A ge:64 Y S ex:Male Date:10/14/2024 Address:[address] [place] [address] [address] [id number] Pcp:christine rae Subjective: * Chief Complaints: * * Medical History: Objective: * Vitals: Assessment: Plan: * Treatment: * * Electronic signature of Verona Beltran DO on 01/29/2025 at 02:15 PM EDT Sign off status: Pending * Provider: Winston Beltran DO Date: 0 10/14/2024 Generated for Amanda rogers/Falashellg/eTransmitting on: 0 01/29/2025 02:15 PM EDT
--- OUTSIDE RECORDS SUMMARY | 2024-10-14 13:00 | XMS_ITS ---
Author Organization [facility] Address [address] [place] [address] Care Team Providers Care Electronics Manufacturer Name Role Phone christine rae Primary Care Provider Harrison Mcdermott Unavailable [phone] Encounters Encounter Location Date Provider Diagnosis [facility] [address] [place] [address] 10/14/2024 Harrison Beltran Plan Of Treatment Next Appt Details Provider Name:Harrsion alvarenga, 03/10/2025 01:15:00 PM, [address] [place], [address], Progress Notes * Sivakumar KERROB:1960 (64 yo M)Acc No.[id number]:10/14/2024 Progress Notes Patient: Piotr ROBERTS Provider: Winston Beltran DO :1960 A ge:64 Y S ex:Male Date:10/14/2024 Address:[address] [place] [address] [address], [id number] Pcp:christine rae Subjective: * Chief Complaints: * * Medical History: Objective: * Vitals: Assessment: Plan: * Treatment: * * Electronic signature of Verona Beltran DO on 01/31/2025 at 05:16 PM EDT Sign off status: Pending * Provider: Winston Beltran DO Date: 0 10/14/2024 Generated for Amanda rogers/Falashellg/eTransmitting on: 0 01/31/2025 05:16 PM EDT
--- OUTSIDE RECORDS SUMMARY | 2024-11-11 13:00 | XMS_ITS ---
Author Organization [facility] Address [address] [address] Care Team Providers Care Grooving Machine Operator Name Role Phone christine rae Primary Care Provider Harrison Mcdermott Unavailable [phone] Encounters Encounter Location Date Provider Diagnosis [facility] [address] [place] [address] 11/11/2024 Harrison Beltran Plan Of Treatment Next Appt Details Provider Name:Harrison alvarenga, 03/10/2025 01:15:00 PM, [address] [place], [address], Progress Notes * Sivakumar KERROB:1960 (64 yo M)Acc No.[id number]:11/11/2024 Progress Notes Patient: Piotr ROBERTS Provider: Winston Beltran DO :1960 A ge:64 Y S ex:Male Date:11/11/2024 Address:[address] [place] [id number] Pcp:christine rae Subjective: * Chief Complaints: * * Medical History: Objective: * Vitals: Assessment: Plan: * Treatment: * * Electronic signature of Verona Beltran DO on 01/29/2025 at 02:16 PM EDT Sign off status: Pending * Provider: Winston Beltran DO Date: 11/11/2024 Generated for Eldoni ng/Faxing/eTransmitting on: 0 01/29/2025 02:16 PM EDT
--- OUTSIDE RECORDS SUMMARY | 2024-11-11 13:00 | XMS_ITS ---
Author Organization [facility] Address [address] [place] [address] [place] [address] Care Team Providers Care Bowling Ball Mold Assembler Name Role Phone christine rae Primary Care Provider Harrison Mcdermott Unavailable [phone] Encounters Encounter Location Date Provider Diagnosis [facility] [address] [place] [address] 11/11/2024 Harrison Beltran Plan Of Treatment Next Appt Details Provider Name:Harrison alvarenga, 03/10/2025 01:15:00 PM, [address] [place], [address], Progress Notes * Sivakumar KERROB:1960 (64 yo M)Acc No.[id number]:11/11/2024 Progress Notes Patient: Piotr ROBERTS Provider: Winston Beltran DO :1960 A ge:64 Y S ex:Male Date:11/11/2024 Address:[address] [place] [address], [id number] Pcp:christine rae Subjective: * Chief Complaints: * * Medical History: Objective: * Vitals: Assessment: Plan: * Treatment: * * Electronic signature of Verona Beltran DO on 01/31/2025 at 05:17 PM EDT Sign off status: Pending * Provider: Winston Beltran DO Date: 11/11/2024 Generated for Eldoni ng/Faxing/eTransmitting on: 01/31/2025 05:17 PM EDT
[2025-01-29 13:57] VITALS: BP 112/48; PULSE 73; TEMP 36.6; O2SAT 98; BMI 35.3
--- OUTSIDE RECORDS SUMMARY | 2025-01-29 14:15 | XMS_ITS | Encounter Summary ---
Author Organization [facility] 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) Procedures US RETROPERITONEAL COMPLETE Harrison Beltran DO [address] [place] [address] Phone: tel: fax: Referral ID Status Reason Start Date Expiration Date Visits Re quested Visits Authorized [id number] Closed 11/17/2022 11/17/2023 1 1 Encounter Details Date Type Department Care Team (Latest Contact Info) Description 11/17/2022 Transcribe Orders [facility] [address] [place] [address] Harrison Beltran U, DO [address] [place], [place] [id number] Hypercalcemia (Primary Dx); Essential hypertension; 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 Never 07/25/2020 Average Number of Drinks Not on file 021 Frequency of Binge Drinking Not on file 07/2020 Sex and Gender Information Value Date Recorded Sex Assigned at Not on file Legal Sex Male 11:22 AM EST Gender Identity Not on file Sexual Orientation Not on file documented as of this encounter Plan of Treatment Upcoming Encounters Date Type Department Care Team (Late st Contact Info) Description 03/15/2025 1:30 PM EDT Office Visit [facility] Part [address] [place] [address] Marvin Nielson MD [address] [place] [address] [address] [place] [address] F/U from 09/14/24 04/12/2025 2:30 PM EST Office Visit [facility] Part [address] [place] [phone] Jeb Dyer PA-C [address] [place] [address] [address] [place] [address] 6M pvr 04/27/2025 1:40 PM EST Office Visit [facility] Part [address] [phone] Alma Kan MD [address] [place] [address] [place] [address] 6 month 07/12/2025 1:00 PM EST Pharmacy Visit [facility] Med[facility] Management [address] [place] [address] Heart Failure FU- 6month follow-up 10/09/2025 1:00 PM EDT Office Visit [facility] Part of [facility] [address] [place] [address] Jeb Dyer PA-C [address] [facility] [place] [address] 1Y psa documented as of this encounter Results * US RETROPERITONEAL COMPLETE (11/24/2022 4:25 PM EDT) Anatomical Region Laterality Modality Ultrasound 11/24/2022 4:25 PM EDT Impressions 11/24/2022 5:14 PM EDT Unremarkable ultrasound of the kidneys. Diffuse urinary bladder wall thickening could reflect nondistention versus cystitis. Recommend correlation clinical findings and urinalysis. Postvoid residual volume 100 mL. Narrative 11/24/2022 5:14 PM EDT EXAMINATION: RETROPERITONEAL ULTRASOUND OF THE KIDNEYS AND URINARY BLADDER 11/24/2022 COMPARISON: None HISTORY: ORDERING SYSTEM PROVIDED HISTORY: Hypercalcemia FINDINGS: Kidneys: The right kidney measures 10.8 cm in length and the left kidney measures 11.5 cm in length. Kidneys demonstrate normal cortical echogenicity. No evidence of hydronephrosis or intrarenal stones. Bladder: Urinary bladder prevoid volume 231 mL. 7 mm diffuse wall thickening versus underdistention. Ureteral jets not demonstrated. Postvoid residual 100 mL. Procedure Note You Null DO - 11/24/2022 EXAMINATION: RETROPERITONEAL ULTRASOUND OF THE KIDNEYS AND URINARY BLADDER 11/24/2022 COMPARISON: None HISTORY: ORDERING SYSTEM PROVIDED HISTORY: Hypercalcemia FINDINGS: Kidneys: The right kidney measures 10.8 cm in length and the left kidney shmnbnly04.5 cm in length. Kidneys demonstrate normal cortical echogenicity. No evidence of hydronephrosis or intrarenal stones. Bladder: Urinary bladder prevoid volume 231 mL. 7 mm diffuse wall thickeningversus underdistention. Ureteral jets not demonstrated. Postvoid residual 100mL. IMPRESSION: Unremarkable ultrasound of the kidneys. Diffuse urinary bladder wall thickening could reflect nondistentionversus cystitis. Recommend correlation clinical findings and urinalysis. Postvoid residual volume 100 mL. 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
--- OUTSIDE RECORDS SUMMARY | 2025-01-29 14:15 | XMS_ITS | Encounter Summary ---
Author Organization [facility] 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) Procedures Vascular duplex lower extremity arteries bilateral Kelby Warner DO [address] [place] [address] Phone: tel: fax: Referral ID Status Reason Start Date Expiration Date V isits Requested Visits Authorized [id number] Not Required - RTA 02/07/2024 02/06/2025 1 1 Encounter Details Date Type Department Care Team (Latest Contact Info) Description 02/07/2024 Transcribe Orders [facility] Pre Access [address] [place] [address] Kelby Warner DO [address] [facility] [place] [address] Peripheral vascular disease, unspecified (Primary Dx); 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); Neurotrophic ulcer of the foot (HCC) Social History Tobacco Use Types Packs/Day [...] of Binge Drinking Not on file 07/2020 PHQ-2 Answer Date Recorded PHQ-9 Total Score 0 08/27/2023 Interpersonal Safety Domain Source: IP Abuse Scr eening Answer Date Recorded Physical abuse Denies 11/03/2023 Verbal abuse Denies 11/03/2023 Emotional abuse Denies 11/03/2023 Financial abuse Denies 11/03/2023 Sexual abuse Denies 11/03/2023 Sex and Gender Information Value Date Recorded Sex Assigned at Not on file Legal Sex Male 11:22 AM EST Gender Identity Not on file Sexual Orientation Not on file documented as of this encounter Plan of Treatment Upcoming Encounters Date Type Department Care Team (Late st Contact Info) Description 03/15/2025 1:30 PM EDT Office Visit [facility] Part [address] [place] [address] Marvin Nielson MD [address] [place] [address] [address] [place] [address] F/U from 09/14/24 04/12/2025 2:30 PM EST Office Visit [facility] Part of [address] [place] [address] Jeb Dyer, PA-C [address] [place] [address] [address] [place] [address] 6M pvr 04/27/2025 1:40 PM EST Office Visit [facility] [address] [place] [address] Alma Kan MD [address] [place] [address] 6 month 07/12/2025 1:00 PM EST Pharmacy Visit [facility]ication Management [address] [place] [address] Heart Failure FU- 6month follow-up 10/09/2025 1:00 PM EDT Office Visit [facility] [address] [facility] [address] [place] [address] Jeb Dyer, PA-C [address] [place] [address] 1Y psa Scheduled Orders Name Type Priority Associated Diagnoses Orde r Schedule Vascular duplex lower extremity arteries bilateral CV Vascular US LAW Peripheral vascular disease, unspecified 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) Expected: 02/07/2024, Expires: 02/06/2025 documented as of this encounter Visit Diagnoses Diagnosis Peripheral vascular disease, unspecified- Primary 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) Type II or unspecified type diabetes mellitus with other specified manifestations, not stated as uncontrolled Neurotrophic ulcer of the foot (HCC) Ulcer of other part of foot documented in this encounter Additional Health Concerns Infection Onset Date Last Indicated Resolved Time COVID-19 (Rule Out) 07/22/2024 07/22/2024 07/22/19 25 2:19 PM EST documented as of this encounter Care Teams Security Software Engineer Relationship Specialty Start Date End Date Kelby Warner DO [address] [facility] [place] [phone] PCP - General Internal Medicine 04/17/21 documented as of this encounter
--- OUTSIDE RECORDS SUMMARY | 2025-01-29 14:15 | XMS_ITS ---
Author Organization [facility] Address [address] [place] [address] Care Team Providers Care Public Transit Trolley Driver Name Role Phone Kelby Warner DO Primary Care Provider Med Management (Pharmacy) Status:Enrolled (Active) Start date:12/09/2023 Enrollment date:12/09/2023 Enrollment reason:Referred by provider Current support & services provided:MM Heart Failure Case Team Name Relationship Phone Kristen Rader [facility] Pharmacist [phone] Continued Care and Services Coordination
--- OUTSIDE RECORDS SUMMARY | 2025-01-29 14:15 | XMS_ITS | Encounter Summary ---
Author Organization [facility] Address [address], [address] [place] [address] Care Team Providers Care Android Architect Name Role Phone Kelby Warner DO Primary Care Provider Reason for Referral * Outpatient Service (Routine) - Closed Specialty Diagnoses / Procedures Referred By Contac t Referred To Contact Cardiology Diagnoses Chest pain, unspecified type R07.9 (ICD-10-CM) - Chest pain, unspecified type Procedures Cardiac Stress Test - w/Pharm CHG MYOCARDIAL SPECT MULTIPLE STUDIES [id number] - CHG MYOCARDIAL SPECT MULTIPLE STUDIES Kelby Warner DO [address] [facility] [place] [address] Phone: tel: fax: Referral ID Status Reason Start Date Expiration Date Visits Re quested Visits Authorized [id number] Closed 04/22/2021 06/06/2021 2 2 Encounter Details Date Type Department Care Team (Latest Contact Info) Description 04/17/2021 Transcribe Orders [facility] PRE-ACCESS [address] [place] [address] Kelby Warner DO [address] [facility] [place] [address] Chest pain, unspecified type (Primary Dx) Social History Tobacco Use Types Packs/Day Years [...] Description 03/15/2025 1:30 PM EDT Office Visit [facility] VASCULAR Part [address] [place] [address] Marvin Nielson MD [address] [place] [address] [address] [place] [address] F/U from 09/14/24 04/12/2025 2:30 PM EST Office Visit [facility] UROLOGY Part [address] [place] [address] Jeb Dyer PAGeremiasC [address] [place] [address] [address] [place] [address] 6M pvr 04/27/2025 1:40 PM EST Office Visit [facility] CARDIOLOGY Part [address] [address] Alma Kan MD [address] [place] [address] [place] [address] 6 month 07/12/2025 1:00 PM EST Pharmacy Visit [facility] Medication Management [address] [place] [address] Heart Failure FU- 6month follow-up 10/09/2025 1:00 PM EDT Office Visit [facility] UROLOGY Part of [address] [place] [address] Jeb Dyer PAGeremiasC [address] [place] [address] [address] [place] [address] 1Y psa documented as of this encounter Results * Cardiac Stress Test - w/Pharm (04/30/2021 11:59 PM EST) Narrative Procedure Note Phoenix Brito MD - 04/30/2021 11:59 PM EST [address] [address] CARDIAC STRESS TEST PATIENT NAME: PIOTR KERR : 1960 MED REC NO: [id number] ROOM: ACCOUNT NO: [id number] ADMIT DATE: 04/30/2021 PROVIDER: Phoenix Brito MD CARDIOVASCULAR DIAGNOSTIC DEPARTMENT DATE OF STUDY: 04/30/2021 ORDERING PROVIDER: Kelby Warner DO PRIMARY CARE PROVIDER: Kelby Warner DO INTERPRETING PHYSICIAN: Phoenix Brito MD PHARMACOLOGIC MYOCARDIAL PERFUSION STRESS TESTING Stress/Rest single isotope SPECT imaging with exercise stress and gated SPECT imaging. INDICATIONS: Assessment of recent chest pain and/or chest discomfort. CLINICAL HISTORY: The patient is a 60-year-old man with known coronary artery disease. Previous cardiac history includes: Stress test, cardiac catheterization, percutaneous transluminal coronary angioplasty. Other previous history includes: Chest pain, fatigue, dyspnea, lightheadedness, diabetes mellitus, indigestion, heartburn, hypertension. Symptoms just prior to testing include: None. Relevant medications: Metoprolol. Amlodipine. PROCEDURE: The heart rate was 66 at baseline and patrice to 71 beats per minute during the regadenoson infusion. The rest blood pressure was 122/60 mm/Hg and decreased to 94/56 mm/Hg. The patient did not complain of any significant symptoms following infusion. Pharmacologic stress testing was performed with regadenoson at a dose of 0.4 mg. Additionally, low level exercise using hand compressions were performed along with vasodilator infusion. MYOCARDIAL PERFUSION IMAGING: Imaging was performed at rest 30-45 minutes following the injection of 30 mCi of sestamibi. Approximately 10 seconds after Lexiscan injection, the patient was injected with 30 mCi of sestamibi. Gating post-stress tomographic imaging was performed 30-45 minutes after stress. STRESS ECG RESULTS: The resting electrocardiogram demonstrated normal sinus rhythm without significant ST-segment abnormalities that may impair accurate ECG detection of stress induced cardiac ischemia. During vasodilator infusion and during recovery, the patient developed: No significant ST segment changes suggestive of myocardial ischemia with no premature atrial contractions (PACs) and no premature ventricular contractions (PVCs). NUCLEAR IMAGING RESULTS: The overall quality of the study is good. Mild to moderate attenuation artifact was seen. There is no evidence of abnormal lung uptake. Additionally, the right ventricle appears normal. The left ventricular cavity is noted to be normal in size on the stress images. There is evidence of transient ischemic dilatation (TID) of the left ventricle. Gated SPECT imaging reveals normal myocardial thickening and wall motion with a calculated left ventricular ejection fraction of 60%. The rest images demonstrated a small perfusion abnormality of mild intensity in the lateral region which is most likely due to artifact. On stress imaging, a moderate perfusion abnormality of moderate intensity in the anterolateral, lateral and inferolateral regions, which may be due to artifact. IMPRESSION: 1. Abnormal myocardial perfusion study. There is a moderate perfusion defect of moderate intensity in the anterolateral, lateral and inferolateral regions during stress imaging which is most consistent with ischemia, but may be due to artifact. In addition, transient ischemic dilatation (TID) of the left ventricle is seen which can be seen with uncontrolled hypertension, severe left main coronary artery disease, or severe 3-vessel coronary artery disease. (TID: 1.23) 2. Global left ventricular systolic function was normal, without regional wall motion abnormalities. 3. No significant electrocardiographic evidence of myocardial ischemia during EKG monitoring without significant associated arrhythmias. Overall, these results are most consistent with an intermediate to high risk for significant coronary artery disease. Additional testing, including cardiac catheterization, may be indicated. The sensitivity for detecting ischemia on this test may have been reduced due to the patient being on a beta jayde and a calcium channel jayde. PHOENIX BRITO MD GLO/ROSALIE_CARL Doc#: Unknown CC: Kelby Warner Kelby Warner DO CARDIAC SERVICES ORDERABLES Fin al Result documented in this encounter Visit Diagnoses Diagnosis Chest pain, unspecified type- Primary Chest pain, unspecified type documented in this encounter Additional Health Concerns Infection Onset Date Last Indicated Resolved Time COVID-19 (Rule Out) 05/20/2021 05/20/2021 05/20/20 21 12:14 PM EST COVID-19 (Rule Out) 06/05/2021 06/05/2021 06/05/19 22 8:24 PM EST COVID-19 06/05/2021 06/05/2021 06/16/2021 10:4 7 PM EST COVID-19 (Rule Out) 07/22/2024 07/22/2024 07/22/19 25 2:19 PM EST documented as of this encounter Care Teams Android Architect Relationship Specialty Start Date End Date Kelby Warner DO [address] [place] [address] PCP - General Internal Medicine 04/17/21 documented as of this encounter
--- OUTSIDE RECORDS SUMMARY | 2025-01-29 14:15 | XMS_ITS | Encounter Summary ---
Author Organization [facility] Address [address] [place] [address] Care Team Providers Care Weaver Needle Loom Name Role Phone Kelby Warner DO Primary Care Provider [phone] Encounter Details Date Type Department Care Team (Late st Contact Info) Description 02/14/2023 Abstract [facility] [address] [place] [phone] Phoenix Cochran DPM [address] [place], [place] [phone] Social History Tobacco Use Types Packs/Day Years Used Date Smoking Tobacco: Never Tobacco Cessation:Counseling Given: Not Answered Alcohol Use Standard Drinks/Week Comments Never 0 (1 standard drink = 0.6 oz pur e alcohol) Sex and Gender Information Value Date Recorded Sex Assigned at Not on file Legal Sex Male 10:12 PM EDT Gender Identity Not on file Sexual Orientation Not on file COVID-19 Exposure Response Date Recorded In the last 10 days, have yo u been in contact with someone who was confirmed or suspected to have Coronavirus/COVID-19? No / Unsure 02/16/2023 8:31 AM EDT documented as of this encounter Plan of Treatment Upcoming Encounters Date Type Department Care Team (Late st Contact Info) Description 02/16/2025 2:45 PM EDT Procedure Visit [facility] [address] [place] [phone] Phoenix Cochran, DPM [address] [place], [place] [phone] documented as of this encounter Visit Diagnoses Not on filedocumented in this encounter Care Teams Weaver Needle Loom Relationship Specialty Start Date End Date Kelby Warner DO [address] [place] [address] PCP - General Internal Medicine 02/13/23 documented as of this encounter
--- OUTSIDE RECORDS SUMMARY | 2025-01-29 14:15 | XMS_ITS | Encounter Summary ---
Author Organization [facility] Address [address] [place] [address] Care Team Providers Care Audio Visual Specialist Name Role Phone Kelby Warner DO Primary Care Provider [phone] Encounter Details Date Type Department Care Team (Late st Contact Info) Description 01/23/2021 Abstract [facility] UROLOGY Part of [address] [place] [address] Akira Ferrer MD [address] [place] [address], [address] [place] [address] Social History Tobacco Use Types Packs/Day Years [...] Description 03/15/2025 1:30 PM EDT Office Visit [facility] VASCULAR Part [address] [place] [address] Marvin Nielson MD [address] [place] [address] [address] [place] [address] F/U from 09/14/24 04/12/2025 2:30 PM EST Office Visit [facility] UROLOGY [address] [place] [address] Jeb Dyer, PA-C [address] [place] [address] [address] [place], [place] [phone] 6M pvr 04/27/2025 1:40 PM EST Office Visit [facility] CARDIOLOGY Part [address] [address] Alma Kan MD [address] [place] [address] [place] [address] 6 month 07/12/2025 1:00 PM EST Pharmacy Visit [facility] Medication Management [address] [place] [phone] Heart Failure FU- 6month follow-up 10/09/2025 1:00 PM EDT Office Visit [facility] UROLOGY [address] [place] [address] Jeb Dyer, PA-C [address] [place] [address] [address] [place], [place] [phone] 1Y psa documented as of this encounter Visit Diagnoses Not on filedocumented in this encounter Additional Health Concerns Infection Onset Date Last Indicated Resolved Time COVID-19 (Rule Out) 05/20/2021 05/20/2021 05/20/20 21 12:14 PM EST COVID-19 (Rule Out) 06/05/2021 06/05/2021 06/05/19 22 8:24 PM EST COVID-19 06/05/2021 06/05/2021 06/16/2021 10:4 7 PM EST COVID-19 (Rule Out) 07/22/2024 07/22/2024 07/22/19 25 2:19 PM EST documented as of this encounter Care Teams Audio Visual Specialist Relationship Specialty Start Date End Date Kelby Warner DO [address] [place] [address] PCP - General Internal Medicine 04/17/21 documented as of this encounter
--- OUTSIDE RECORDS SUMMARY | 2025-01-29 14:15 | XMS_ITS | Clinical Summary ---
Author Organization [facility] tem Address [id number] [address] [id number] Care Team Providers Care Purse Framer Name Role Phone Unavailable Primary Care Provider Unavailabl e Social History Tobacco Use Types Packs/Day Years [...] file Medical Devices Not on file Insurance [facility]
--- OUTSIDE RECORDS SUMMARY | 2025-01-29 14:15 | XMS_ITS | Clinical Summary ---
Author Organization [facility] Address [address] [place] [address] Care Team Providers Care Postal Inspector Name Role Phone Unavailable Primary Care Provider Unavailabl e Social History Tobacco Use Types Packs/Day Years Used Date Smoking Tobacco: Never Assessed [place] Safety & Environment Answer Date Rec orded Fear of Current or Ex-Partner Not on file Emotionally Abused Not on file 07/16/2023 Physically Abused Not on file 07/16/2023 Sexually Abused Not on file 07/16/2023 Physically or Sexually Abused Not on file Sex and Gender Information Value Date Recorded Sex Assigned at Not on file Legal Sex Male 12:23 AM EDT Gender Identity Not on file Sexual Orientation Not on file Plan of Treatment Health Maintenance Due Date Last Done Comments CT Colonography 1960 Colonoscopy 1960 Colorectal Cancer Screening 1960 FIT-DNA 1960 FIT 1960 FOBT 1960 Medicare Initial Physical (IPPE) 1960 Sigmoidoscopy 1960 Depression Screening 1971 Adult Tetanus 07/30/1981 Pneumococcal Vaccine: 50+ Ye ars (1 of 1 - PCV) 07/30/2009 Zoster Vaccines (1 of 2) 07/30/2009 Fall Risk Screening 07/30/2024 COVID-19 Vaccine (2023-2 5 season) 2025 Influenza Vaccine (#1) 2025 HIB Vaccines Aged Out No longer eligi ble based on patient's age to complete this topic HPV Vaccines Aged Out No longer eligi ble based on patient's age to complete this topic IPV Vaccines Aged Out No longer eligi ble based on patient's age to complete this topic Meningococcal B Vaccine Aged Out No l onger eligible based on patient's age to complete this topic Meningococcal Vaccine Aged Out No julio césar jesi eligible based on patient's age to complete this topic Rotavirus Vaccines Aged Out No longer eligible based on patient's age to complete this topic Insurance [employer]
--- OUTSIDE RECORDS SUMMARY | 2025-01-29 14:15 | XMS_ITS | Clinical Summary ---
Author Organization [facility] Address [address] [place] [address] Care Team Providers Care Social Organization Professor Name Role Phone Kelby Warner DO Primary Care Provider [phone] Allergies Active Allergy Reactions Criticality Noted Date Comments Azithromycin Unknown 07/17/2022 Other Reaction(s): Dizziness or Vertigo Ciprofloxacin Unknown Low 01/20/2021 Other Reaction(s): Tongue swelling Itching and rash Dapagliflozin Itching 10/26/2023 Lisinopril Cough,Unknown 07/17/2022 Medications MULTIPLE VITAMINS ESSENTIAL PO Take by mouth. Ac tive nitroglycerin (Nitrostat) 0.4 MG SL tablet as directed Sublingual Active polyethylene glycol, PEG, 3350 (Glycolax) 17 GM/SCOOP powder Take 17 g by mouth. Active pravastatin (Pravachol) 40 MG tablet Take 20 mg by mouth in the evening 3 Active tamsulosin (Flomax) 0.4 MG 24 hr capsule Take 1 capsule by mouth in the morning. 3 Active zinc 50 MG tablet 1 (one) time each day at the same time. Active Bacillus Coagulans-Inul in (Probiotic) 1-250 BILLION-MG capsule Probiotic Active acetaminophen- codeine (Tylenol w/ Codeine #3) 300-30 MG tablet TAKE 1 TABLET BY MOUTH EVERY 4 HOURS NEEDED FOR PAIN FOR UP TO 3 DAYS, TAKE LOWEST DOSE POSSIBLE TO MANAGE PAIN Oral for 3 Days Active Alpha-Lipoic Acid 600 MG capsule Take by mouth. Activ e ascorbic acid (Vitamin C) 1000 MG tablet Take 1 tablet by mouth Daily Active aspirin 81 MG EC tablet Take 1 tablet by mouth in the morning. Active carvedilol (Coreg) 6.25 MG tablet TAKE ONE TABLET BY MOUTH TWICE A DAY (WITH MEALS) Active clopidogrel (Plavix) 75 MG tablet Take 1 tablet by mouth in the morning. Active doxycycline (Vibramycin) 100 MG capsule Take 100 mg by mouth in the morning and 100 mg before bedtime. 3 Active famotidine (Pepcid) 20 MG tablet Take 20 mg by mouth in the morning and 20 mg before bedtime. Active furosemide (Lasix) 80 MG tablet Take 20 mg by mouth Daily Active Lasix 40 MG tablet 1 (one) time each day at the same time. Active Toujeo SoloStar 300 UNIT/ML injection INJECT 44 UNITS DAILY SUBCUTANEOUSLY IN THE EVENING Active HumaLOG KWIKPEN 100 UNIT/ML injection INJECT 10 UNITS VIA SUBCUTANEOUS ROUTE BEFORE EACH MEAL Active magnesium oxide (Mag-Ox) 400 MG tablet Take 1 tablet by mouth Daily Active empagliflozin (Jardiance) 10 MG 1 (one) time each day at the same time 4 Active Entresto 24-26 MG tablet every 12 (twelve) hours Active Sensipar 60 MG tablet 1 (one) time each day at the same time 4 Active metOLazone (Zaroxolyn) 2.5 MG tablet Take 2.5 mg by mouth 4 Active pantoprazole (ProtoNix) 40 MG EC tablet Take 40 mg by mouth in the morning. Take before meals. Do not crush, chew, or split.. Active docusate sodium (Colace) 100 MG capsule Take 100 mg by mouth in the morning and 100 mg before bedtime. Active allopurinol (Zyloprim) 100 MG tablet Take 100 mg by mouth Active potassium chloride (Klor-Con) 20 MEQ packet Take 20 mEq by mouth in the morning and 20 mEq before bedtime. Active spironolactone (Aldactone) 50 MG tablet Take 50 mg by mouth 1 (one) time each day at the same time 4 Active cephalexin (Keflex) 250 MG capsule Take 250 mg by mouth in the morning and 250 mg at noon and 250 mg in the evening and 250 mg before bedtime. 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 02/16/2023 Hypoxia 05/30/2021 Benign essential HTN 05/27/2021 Cerebral infarction, unspecified 2019 Cognitive communication deficit 2019 Hyperlipidemia, unspecified 2019 Muscle weakness (generalized) 2019 Body mass index (BMI) 30.0-30.9, adult 0 Atherosclerotic heart diseas e of [place] coronary artery with other forms of angina pectoris 07/29/2019 Dysphagia following other cerebrovascular diseas e 07/29/2019 Hemiplegia and hemiparesis f ollowing cerebral infarction affecting left non-dominant side 07/29/2019 Encounters Date Type Department Care Team Description 11/09/2024 1:30 PM EDT Procedure Visit [facility] [address] [facility] [place] [address] Phoenix Cochran DPM Dermatophytosis of nail (Primary Dx); Dystrophic nail; Type II diabetes mellitus with peripheral circulatory disorder (HCC); Diabetic polyneuropathy associated with type 2 diabetes mellitus (HCC) 11/09/2024 Bamboo flowsheet [facility] [address] [facility] [place] [address] Phoenix Cochran DPM 11/09/2024 Travel 11/08/2024 Travel from Last 3 Months Immunizations Immunization Administration Dates Next Due Pneumococcal Conjugate PCV 13 06/25/2013 Pneumococcal Polysaccharide PPSV23 07/29/2019 Tdap 11/12/2022 Family History Medical History Relation Name Comments Hypertension Father Rocky Kerr Diabetes Mother Bebe Kerr Heart disease Mother Bebe Kerr enlarged hea rt Relation Name Status Comments Father Rocky Kerr Mother Bebe Kerr Social History Tobacco Use Types Packs/Day Years Used Date Smoking Tobacco: Never Smokeless Tobacco: Never Alcohol Use Standard Drinks/Week Comments Never 0 (1 standard drink = 0.6 oz pur e alcohol) Sex and Gender Information Value Date Recorded Sex Assigned at Not on file Legal Sex Male 10:12 PM EDT Gender Identity Not on file Sexual Orientation Not on file Last Filed Vital Signs Vital Sign Reading Time Taken Comments Blood Pressure - - Pulse - - Temperature 36.7 C (98 F) 11/09/2024 1:45 PM EDT Respiratory Rate - - Oxygen Saturation - - Inhaled Oxygen Concentration - - Weight 118 kg (260 lb) 11/09/2024 1:45 PM EDT Height 182.9 cm (6') 11/09/2024 1:45 PM EDT Body Mass Index 35.26 11/09/2024 1:45 PM EDT Plan of Treatment Upcoming Encounters Date Type Department Care Team (Late st Contact Info) Description 02/16/2025 2:45 PM EDT Procedure Visit [facility] [address] [place] [phone] Phoenix Cochran DPBella [address] [place], [place] [phone] Insurance MEDICARE Care Teams Social Organization Professor Relationship Specialty Start Date End Date Kelby Warner DO [address] [place] [address] PCP - General Internal Medicine 02/13/23
--- OUTSIDE RECORDS SUMMARY | 2025-01-29 14:15 | XMS_ITS | Encounter Summary ---
Author Organization [facility] Address [address] [facility], [address] [place] [address] Care Team Providers Care Salesperson [employer] Name Role Phone Kelby Warner DO Primary Care Provider Encounter Details Date Type Department Care Team (Late st Contact Info) Description 02/01/[address] [place] [address] Octavio Lozada MD [address] [facility] [address] [place] [address] Social History Tobacco Use Types Packs/Day Years [...] Description 03/15/2025 1:30 PM EDT Office Visit [facility] VASCULAR Part [address] [facility] [place] [address] Marvin Nielson MD [address] [place] [address] [address] [facility] [facility] [place] [address] F/U from 09/14/24 04/12/2025 2:30 PM EST Office Visit [facility] UROLOGY Part [address] [place] [address] Jeb Dyer, PA-C [address] [place] [address] [address] [place], [place] [phone] 6M pvr 04/27/2025 1:40 PM EST Office Visit [facility] CARDIOLOGY Part of [address] [address] Alma Kan MD [address] [place] [address] [place] [address] 6 month 07/12/2025 1:00 PM EST Pharmacy Visit [facility] Medication Management [address] [place] [phone] Heart Failure FU- 6month follow-up 10/09/2025 1:00 PM EDT Office Visit [facility] UROLOGY Part [address] [place] [address] Jeb Dyer, PA-C [address] [place] [address] [address] [place] [address] 1Y psa documented as of this encounter [...] documented as of this encounter Care Teams Salesperson [employer] Relationship Specialty Start Date End Date Kelby Warner DO [address] [place] [address] PCP - General Internal Medicine 04/17/21 documented as of this encounter
--- OUTSIDE RECORDS SUMMARY | 2025-01-29 14:15 | XMS_ITS | Encounter Summary ---
Author Organization [facility] Address [address] [facility], [address] [place] [address] Care Team Providers Care Funeral Service Apprentice Name Role Phone Kelby Warner DO Primary Care Provider Reason for Referral * Imaging (Routine) - Closed Specialty Diagnoses / Procedures Referred By Contac t Referred To Contact Radiology Diagnoses Atherosclerosis of kobuk artery of lower extremity, unspecified laterality, with unspecified presence of clinical manifestation Procedures VL LOWER EXTREMITY ARTERIAL SEGMENTAL PRESSURES W PPG Kelby Wanrer DO [address] [facility] [place] [address] Phone: tel: fax: Referral ID Status Reason Start Date Expiration Date Visits Re quested Visits Authorized [id number] Closed 04/17/2021 04/17/2022 1 1 Encounter Details Date Type Department Care Team (Latest Contact Info) Description 04/17/2021 Transcribe [facility] [address] [place] [address] Kelby Warner DO [address] [facility] [place] [phone] Atherosclerosis of kobuk artery of lower extremity, unspecified laterality, with unspecified presence of clinical manifestation (Primary Dx) Social History Tobacco Use Types [...] Description 03/15/2025 1:30 PM EDT Office Visit [facility] VASCULAR Part [address] [place] [address] Marvin Nielson MD [address] [place] [address] [address] [place] [address] F/U from 09/14/24 04/12/2025 2:30 PM EST Office Visit [facility] UROLOGY Part of [address] [place] [address] Jeb Dyer PA-C [address] [place] [address] [address] [place] [address] 6M pvr 04/27/2025 1:40 PM EST Office Visit [facility] CARDIOLOGY Part of [address] [address] Alma Kan MD [address] [place] [address] [place] [address] 6 month 07/12/2025 1:00 PM EST Pharmacy Visit [facility] Medication Management [address] [place] [address] Heart Failure FU- 6month follow-up 10/09/2025 1:00 PM EDT Office Visit [facility] UROLOGY Part of [facility] [address] [facility] [address] [place] [address] Jeb Dyer PA-C [address] [facility] [address] [place] [address] 1Y psa documented as of this encounter Results * VL LOWER EXTREMITY ARTERIAL SEGMENTAL PRESSURES W PPG (04/30/2021 12:03 PM EST) Anatomical Region Laterality Modality Vascular Vascular Ultraso und 04/30/2021 11:3 1 AM EST Narrative 04/30/2021 12:21 PM EST [facility] Vascular Lower Arterial Plethysmography Procedure Patient Name LAURA MARC Date of Study 04/30/2021 A Date of 1960 Gender Male Age 60 year(s) Race Room Number Corporate ID [id number] # Patient Acct [id number] # MR # [id number] Operating Room Coordinator Citlali Sanchez RVT Interpreting Physician Cleve Encinas MD Referring Referring Physician CHERYL NEWMAN Nurse Practitioner Additional Comments Please fax results to [phone]. Procedure Type of Study: Extremities Arteries: Lower Arterial Plethysmography, PVR Lower. Patient Status:Out Patient. Technical Quality:Adequate visualization. Comments:INDICATIONS: Atherosclerosis of kobuk artery of extremity I70.209. Simultaneous real time imaging utilizing spectral waveform analysis was performed on the bilateral lower extremities for arterial examination. Conclusions Summary Mild PAD in the LLE. Signature Findings: Right Impression: Left Impression: PVR waveforms are normal. PVR waveforms are abnormal. Doppler waveforms are normal. Doppler waveforms are abnormal in the popliteal, dorsalis pedis and posterior Ankle pressures are normal tibial arteries. with resting ABIs of 1.01 and 1.02. Ankle pressures are abnormal with resting ABIs of 0.83 and 0.81. Toe pressures are normal. Toe pressures are abnormal. Velocities are measured in cm/s ; Diameters are measured in cm Pressures + ++--------+-----+----+--------+-----+ ! !!Right ! !Left! ! ! + ++--------+-----+----+--------+-----+ !Location !!Pressure!Ratio! !Pressure!Ratio! + ++--------+-----+----+--------+-----+ !Ankle PT !!159 !1.01 ! !130 !0.83 ! + ++--------+-----+----+--------+-----+ !Ankle DP !!160 !1.02 ! !127 !0.81 ! + ++--------+-----+----+--------+-----+ !Great Toe !!99 !0.63 ! !70 !0.45 ! + ++--------+-----+----+--------+-----+ - Brachial Pressure:Right: 157.Left:157. - MELITON:Right: 1.02.Left: 0.83. Plethysmographic Digit Evaluation +---------++--------+-----+ ++--------+-----+ + ! !!Right ! !Left !! ! ! ! +---------++--------+-----+ ++--------+-----+ + !Location !!Pressure!Ratio!PPG Wave Form !!Pressure!Ratio!PPG Wave Form ! +---------++--------+-----+ ++--------+-----+ + !Great Toe!!99 !0.63 ! !!70 !0.45 ! ! +---------++--------+-----+ ++--------+-----+ + Procedure Note Cleve Encinas MD - 04/30/2021 [facility] Vascular Lower Arterial Plethysmography Procedure Patient Name LAURA MARC Date of Study 04/30/2021 A Date of 1960 Gender Male Age 60 year(s) Race Room Number Corporate ID [id number] # Patient Acct [id number] # MR # [id number] Operating Room Coordinator Citlali Sanchez, [place] Interpreting Physician Cleve Encinas MD Referring Referring Physician CHERYL NEWMAN Nurse Practitioner Additional Comments Please fax results to [phone]. Procedure Type of Study: Extremities Arteries: Lower Arterial Plethysmography, PVR Lower. Patient Status:Out Patient. Technical Quality:Adequate visualization. Comments:INDICATIONS: Atherosclerosis of kobuk artery of ucsernmswR61.209. Simultaneous real time imaging utilizing spectral waveform analysis was performed on the bilateral lower extremities for arterial examination. Conclusions Summary Mild PAD in the LLE. Signature Findings: Right Impression: Left Impression: PVR waveforms are normal. PVR waveforms are abnormal. Doppler waveforms are normal. Doppler waveforms are abnormal in the popliteal, dorsalis pedis and posterior Ankle pressures are normal tibial arteries. with resting ABIs of 1.01 and 1.02. Ankle pressures are abnormal withresting ABIs of 0.83 and 0.81. Toe pressures are normal. Toe pressures are abnormal. Velocities are measured in cm/s ; Diameters are measured in cm Pressures + ++--------+-----+----+--------+-----+ ! !!Right ! !Left! !! + ++--------+-----+----+--------+-----+ !Location !!Pressure!Ratio!!Pressure!Ratio! + ++--------+-----+----+--------+-----+ !Ankle PT !!159 !1.01 ! !130 !0.83! + ++--------+-----+----+--------+-----+ !Ankle DP !!160 !1.02 ! !127 !0.81! + ++--------+-----+----+--------+-----+ !Great Toe !!99 !0.63 ! !70 !0.45! + ++--------+-----+----+--------+-----+ - Brachial Pressure:Right: 157.Left:157. - MELITON:Right: 1.02.Left: 0.83. Plethysmographic Digit Evaluation +---------++--------+-----+ ++--------+-----+ + ! !!Right ! !Left !! ! !! +---------++--------+-----+ ++--------+-----+ + !Location !!Pressure!Ratio!PPG Wave Form !!Pressure!Ratio!PPG Wave Form! +---------++--------+-----+ ++--------+-----+ + !Great Toe!!99 !0.63 ! !!70 !0.45 !! +---------++--------+-----+ ++--------+-----+ + us Kelby ANDRADE VASCULAR ORDERABLES Final R esult documented in this encounter Visit Diagnoses Diagnosis Atherosclerosis of kobuk artery of lower extremity, unspecified laterality, with unspecified presence of clinical manifestation- Primary Atherosclerosis of kobuk artery of lower extremity, unspecified laterality, with unspecified presence of clinical manifestation documented in this encounter Additional Health Concerns Infection Onset Date Last Indicated Resolved Time COVID-19 (Rule Out) 05/20/2021 05/20/2021 05/20/20 21 12:14 PM EST COVID-19 (Rule Out) 06/05/2021 06/05/2021 06/05/19 22 8:24 PM EST COVID-19 06/05/2021 06/05/2021 06/16/2021 10:4 7 PM EST COVID-19 (Rule Out) 07/22/2024 07/22/2024 07/22/19 25 2:19 PM EST documented as of this encounter Care Teams Funeral Service Apprentice Relationship Specialty Start Date End Date Kelby Warner DO [address] [place] [address] PCP - General Internal Medicine 04/17/21 documented as of this encounter
--- OUTSIDE RECORDS SUMMARY | 2025-01-29 14:16 | XMS_ITS | Patient Health Record ---
Author Organization [facility] Address [address] [place] [address] Care Team Providers Care Clother In Name Role Phone Adalid Paula Unavailable [phone] Reason For Referral No Information Problems Problem Type SNOMED Code ICD Code Onset Dates Problem Status W/U Status Risk Notes Problem Peripheral venous insufficiency (54142982) Venous insufficiency (chronic) (peripheral) (I87.2) Active confirmed Problem Cellulitis of right lower limb (2948064821527410 4) Cellulitis of right lower limb (L03.115) Active confirmed Problem Cellulitis of left lower limb (7507573569031595 9) Cellulitis of left lower limb (L03.116) Active confirmed Problem Peripheral vascular disease (673994523) PVD (peripheral vascular disease) (I73.9) Active confirmed Problem Lymphedema (72877591) Lymphedema (I89.0) Active confirmed Encounters Encounter Location Date Provider Diagnosis [facility] [address] [place] [address] 02/26/2024 Adalid Paula PVD (peripheral vascular disease) [...] Coverage Start Date Coverage End Date [facility] [address] [place] [address] [id number] Piotr Kerr Self - patient is the insured
--- OUTSIDE RECORDS SUMMARY | 2025-01-29 14:16 | XMS_ITS | Encounter Summary ---
Author Organization [facility] Address [address] [facility], [address] [place] [address] Care Team Providers Care Motor Scooter Repairer Name Role Phone Kelby Warner DO Primary Care Provider [phone] Reason for Referral * Imaging (Routine) - Closed Specialty Diagnoses / Procedures Referred By Contac t Referred To Contact Diagnoses Type 2 diabetes mellitus with hyperglycemia, unspecified whether salvage determiner insulin use (HCC) Swelling of left lower extremity Procedures Vascular duplex lower extremity venous left Kelby Warner DO [address] [place] [address] Phone: tel: fax: Referral ID Status Reason Start Date Expiration Date Visits Re quested Visits Authorized [id number] Closed 02/16/2023 02/16/2024 1 1 Encounter Details Date Type Department Care Team (Latest Contact Info) Description 02/16/2023 Transcribe Orders [facility] [address] [place] [phone] Kelby Warner DO [address] [facility] [place] [address] Type 2 diabetes mellitus with hyperglycemia, unspecified whether intermediate insulin use (HCC) (Primary Dx); Swelling of left lower extremity Social History Tobacco Use Types Packs/Day Years [...] 1:30 PM EDT Office Visit [facility] VASCULAR Part [address] [place] [address] Marvin Nielson MD [address] [place] [address] [address] [place] [address] F/U from 09/14/24 04/12/2025 2:30 PM EST Office Visit [facility] UROLOGY Part [address] [place] [address] Jeb Dyer PAGeremiasC [address] [place] [address] [address] [place] [address] 6M pvr 04/27/2025 1:40 PM EST Office Visit [facility] CARDIOLOGY Part [address] [address] Alma Kan MD [address] [place] [address] [place] [address] 6 month 07/12/2025 1:00 PM EST Pharmacy Visit [facility] Medication Management [address] [place] [address] Heart Failure FU- 6month follow-up 10/09/2025 1:00 PM EDT Office Visit [facility] UROLOGY Part of [facility] [address] [facility] [address] [place] [address] Jeb Dyer PA-C [address] [facility] [address] [place] [address] 1Y psa documented as of this encounter Results * Vascular duplex lower extremity venous left (02/24/2023 1:26 PM EDT) Anatomical Region Laterality Modality Ultrasound Narrative 02/25/2023 6:28 PM EDT No evidence of deep vein or superficial vein thrombosis in the left lower extremity. Vessels demonstrate normal compressibility, color filling, and phasic and spontaneous flow. Left Lower Venous No evidence of deep vein or superficial vein thrombosis. The common femoral, saphenofemoral junction, profunda femoral, femoral, popliteal, greater saphenous, and small saphenous veins were imaged in the transverse view and showed normal compressibility. The common femoral, popliteal, and middle femoral veins were imaged in the longitudinal view and showed normal color filling and normal phasic and spontaneous flow. us Kelby Warner DO CV VASCULAR ORDERABLES Final Re sult documented in this encounter Visit Diagnoses Diagnosis Type 2 diabetes mellitus with hyperglycemia, unspecified whether intermediate insulin use (HCC)- Primary Swelling of left lower extremity Swelling of limb Type 2 diabetes mellitus with hyperglycemia, unspecified whether intermediate insulin use (HCC) Swelling of left lower extremity Swelling of limb documented in this encounter Additional Health Concerns Infection Onset Date Last Indicated Resolved Time COVID-19 (Rule Out) 07/22/2024 07/22/2024 07/22/19 25 2:19 PM EST documented as of this encounter Care Teams Motor Scooter Repairer Relationship Specialty Start Date End Date Kelby Warner DO [address] [facility] [place] [address] PCP - General Internal Medicine 04/17/21 documented as of this encounter
--- OUTSIDE RECORDS SUMMARY | 2025-01-29 14:16 | XMS_ITS | Encounter Summary ---
Author Organization [facility] Address [address] [facility], [address] [place] [address] Care Team Providers Care Food And Beverage Service Manager Name Role Phone Kelby Warner DO Primary Care Provider [phone] Encounter Details Date Type Department Care Team (Late st Contact Info) Description 01/15/2025 Orders Only [facility] Admitting [address] [place] [address] Bobo Ignacio MD [address] [place] [address] Social History Tobacco Use Types Packs/Day Years Used Date Smoking Tobacco: Never Smokeless Tobacco: Never Alcohol Use Standard Drinks/Week Comments Never 0 (1 standard drink = 0.6 oz pur e alcohol) AUDIT-C Answer Date Recorded Q1: How often do you have a drink containing alcohol? Never 02/24/2024 Q2: How many drinks containi ng alcohol do you have on a typical day when you are drinking? Patient does not drink Q3: How often do you have si x or more drinks on one occasion? Never 02/24/2024 PHQ-2 Answer Date Recorded PHQ-9 Total Score 0 08/27/2023 Interpersonal Safety Domain Source: IP Abuse Scr eening Answer Date Recorded Physical abuse Denies 12/27/2024 Verbal abuse Denies 12/27/2024 Emotional abuse Denies 12/27/2024 Financial abuse Denies 12/27/2024 Sexual abuse Denies 12/27/2024 Sex and Gender Information Value Date Recorded Sex Assigned at Not on file Legal Sex Male 11:22 AM EST Gender Identity Not on file Sexual Orientation Not on file documented as of this encounter Plan of Treatment Upcoming Encounters Date Type Department Care Team (Late st Contact Info) Description 03/15/2025 1:30 PM EDT Office Visit [facility] VASCULAR Part [address] [place] [address] Marvin Nielson MD [address] [place] [address] [address] [place] [address] F/U from 09/14/24 04/12/2025 2:30 PM EST Office Visit [facility] UROLOGY Part [address] [place] [address] Jeb Dyer, PA-C [address] [place] [address] [address] [place] [address] 6M pvr 04/27/2025 1:40 PM EST Office Visit [facility] CARDIOLOGY Part [address] [address] Alma Kan MD [address] [place] [address] [place] [address] 6 month 07/12/2025 1:00 PM EST Pharmacy Visit [facility] Medication Management [address] [place] [phone] Heart Failure FU- 6month follow-up 10/09/2025 1:00 PM EDT Office Visit [facility] UROLOGY Part of [address] [place] [address] Jeb Dyer, PAGeremiasC [address] [place] [address] [address] [place] [address] 1Y psa documented as of this encounter Visit Diagnoses Not on filedocumented in this encounter Care Teams Food And Beverage Service Manager Relationship Specialty Start Date End Date Kelby Warner DO [address] [place] [address] PCP - General Internal Medicine 04/17/21 documented as of this encounter
--- OUTSIDE RECORDS SUMMARY | 2025-01-29 14:16 | XMS_ITS | Patient Health Record ---
Author Organization [facility] Address [address] 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 Name Role Phone christine rae Primary Care Provider UnavailHarrison López Unavailable [phone] Brenda Glass Unavailable [phone] Bobo Greene Unavailable [phone] Hallie Carranza Unavailable [phone] Allergies Allergen (clinical drug ingredient) Drug/Non Drug [...] Duration) Notes Start Date End Date Status Flomax 0.4 MG 1 capsule Orally twice a day Not-Taking Entresto 24-26 MG 1 tablet Orally Twice a day; Duration: 30 day(s) Not-Taking Cholecalciferol 125 MCG (5000 UT) as directed Orally Not-Taki ng Calcitriol 0.5 MCG 1 capsule Orally Once a day; Duration: 30 day(s) Not-Taking HumaLOG KwikPen 100 UNIT/ML as directed Subcutaneous Sliding scale. Before each meal. Active MiraLax 17 GM 1 packet mixed with 8 ounces of fluid Orally Once a day Not-Taking Carvedilol 12.5 MG 1 tablet with food Orally Twice a day Active Magnesium Oxide 400 MG 1 tablet as neede d Orally Once a day Not-Taking Aspirin 81 81 MG 1 tablet Orally Once a day Active Magnesium 250 MG 1 tablet with a meal Orally Once a day; Duration: 30 day(s) Not-Taking Losartan Potassium-HCTZ 50-12.5 MG 1 tablet Orally Once a day; Duration: 30 days 12/12/2022 Not-Taking Losartan Potassium 25 MG 1 tablet Orally Once a day; Duration: 90 days Active Spironolactone 50 MG 1 tablet Orally Once a day; Duration: 90 days Active Lasix 40 MG 1 tablet Orally twice a day; Duration: 30 days Active Allopurinol 100 MG 1 tablet Orally twice a day; Duration: 90 days Active Jardiance 25 MG 0.5 tablet in the morning Orally Once a day; Duration: 30 days Active Multiple Vitamins-Minerals - as directed Orally No t-Taking Pravastatin Sodium 10 MG 1 tablet Orally Once a day Active Plavix 75 MG 1 tablet Orally Once a day Active Magnesium Gluconate 500 (27 Mg) MG 1 tablet Orally Once a day Active Pumpkin Seed Oil - as directed Orally Active Vitamin C 500 MG as directed Orally Active Vitamin B12 100 MCG 1 tablet Orally once a day Active Toujeo SoloStar 300 UNIT/ML as directed Subcutaneous twice a day 30u Active Probiotic Not-Taking Pepcid 20 MG 1 tablet at bedtime Orally Once a day Not-Taking Ascorbic Acid 1000 MG 1 tablet Orally Once a day Not-Taking Nitroglycerin 0.4 MG as directed Sublingual Not-Taking Alpha Lipoic Acid 200 MG 1 capsule Orally Once a day 600 mg Not-Taking Zinc 50 MG 1 tablet Orally Once a day Not-Taking traMADol HCl 50 MG 1 tablet as needed Orally every 8 hours Not-Taking Sensipar 60 MG 1 tablet with food or after a meal Orally 5 times a week; Duration: 90 days Not-Taking Protonix 20 MG 1 tablet 1/2 to 1 hour before morning meal Orally Once a day; Duration: 30 day(s) Not-Taking Social History Tobacco Use: Social History Observation Description Date Details (start date - stop date) Never Smoker NA - NA Tobacco Use/Smoking Question Answer Notes Are you a nonsmoker Problems Problem Type SNOMED Code ICD Code Onset Dates Problem Status W/U Status Risk Notes Problem Primary hyperparathyroidism (46120743) Primary hyperparathyroidism (E21.0) Active confirmed Problem Hypercalcemia (80878801) Hypercalcemia (E83.52) Active confirmed Problem Chronic kidney disease stage 2 (129443377) Chronic kidney disease, stage 2 (mild) (N18.2) Active confirmed Problem Chronic kidney disease stage 4 (194645395) Chronic kidney disease, stage 4 (severe) (N18.4) Active confirmed Problem Electrolytes abnorma l (014558187) Electrolyte abnormality (E87.8) Active confirmed Problem Congestive heart failure (09239610) CHF (congestive heart failure) (I50.9) Active confirmed Problem 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 (I12.9) Active confirmed Problem Disorder of calcium metabolism (30282190) Calcium disorder (E83.50) Active confirmed Problem Benign essential hypertension (9629895) Essential hypertension, benign (I10) Active confirmed Problem Disorder due to type 2 diabetes mellitus (363825356) 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) Active confirmed Problem Chronic kidney disease stage 3A (disorder) (165058940) Chronic kidney disease, stage 3a (N18.31) Active confirmed Problem Chronic kidney disease stage 3B (disorder) (352954738) Chronic kidney disease, stage 3b (N18.32) Active confirmed Vital Signs Heart Rate 66 /min 12/09/2024 Oximetry 96 % 12/09/2024 Blood pressure diastolic 86 mm Hg 12/09/2024 Height 72 in 12/09/2024 Blood pressure systolic 138 mm Hg 12/09/2024 Weight 262 lbs 12/09/2024 BMI 35.53 kg/m2 12/09/2024 Encounters Encounter Location Date Provider Diagnosis [address] [place] [address] 07/15/2024 Brenda Glass Chronic kidney disea se, stage 3b N18.32 ; Electrolyte abnormality E87.8 ; Essential hypertension, benign I10 ; Primary hyperparathyroidism E21.0 ; Hypercalcemia E83.52 ; CHF (congestive heart failure) I50.9 and Diabetes mellitus type 2 with complications E11.8 [address] [place] [address] [facility] Essential hypertensi on, benign I10 ; Chronic kidney disease, stage 3b N18.32 ; Primary hyperparathyroidism E21.0 ; Electrolyte abnormality E87.8 ; CHF (congestive heart failure) I50.9 and Diabetes mellitus type 2 with complications E11.8 [address] [place] [address] 07/01/2024 Brenda Glass Essential hypertensi on, benign I10 ; Chronic kidney disease, stage 3b N18.32 ; Primary hyperparathyroidism E21.0 ; Electrolyte abnormality E87.8 ; Hypercalcemia E83.52 ; CHF (congestive heart failure) I50.9 and Diabetes mellitus type 2 with complications E11.8 [address] [place] [address] 05/[facility] Essential hypertensi on, benign I10 ; Chronic kidney disease, stage 4 (severe) N18.4 ; Primary hyperparathyroidism E21.0 ; Electrolyte abnormality E87.8 ; Hypercalcemia E83.52 ; CHF (congestive heart failure) I50.9 and Diabetes mellitus type 2 with complications E11.8 [address] [place] [address] 04/08/2024 [facility] Primary hyperparathyroidism E21.0 ; Chronic kidney disease, stage 3a N18.31 ; Essential hypertension, benign I10 ; Electrolyte abnormality E87.8 ; Hypercalcemia E83.52 ; CHF (congestive heart failure) I50.9 and Diabetes mellitus type 2 with complications E11.8 [address] [place] [address] 12/09/2024 Bobo Ignacio Essential hypertension, benign I10 ; Chronic kidney disease, stage 3a N18.31 ; Hypercalcemia E83.52 ; Chronic kidney disease, stage 2 (mild) N18.2 ; Chronic kidney disease, stage 4 (severe) N18.4 ; CHF (congestive heart failure) I50.9 ; Hypertensive chronic kidney disease w stg 1-4/unsp chr kdny I12.9 ; Calcium disorder E83.50 ; Chronic kidney disease, stage 3b N18.32 ; Primary hyperparathyroidism E21.0 ; Fluid overload E87.70 ; Electrolyte abnormality E87.8 and Diabetes mellitus type 2 with complications E11.[address] [place] [address] 08/26/2024 Benahstacie Ibhiren Essential hypertensi on, benign I10 ; Chronic kidney disease, stage 3a N18.31 ; Primary hyperparathyroidism E21.0 ; Electrolyte abnormality E87.8 ; CHF (congestive heart failure) I50.9 and Diabetes mellitus type 2 with complications E11.8 [address] [place] [address] 11/11/2024 Hallie Vargas Byrne Essential hypertensi on, benign I10 ; Chronic kidney disease, stage 3a N18.31 ; Primary hyperparathyroidism E21.0 ; Electrolyte abnormality E87.8 ; CHF (congestive heart failure) I50.9 and Diabetes mellitus type 2 with complications E11.8 [facility] [address] [place] [address] 08/31/2024 [facility] [address] [place] [place] [address] 07/22/2024 Benili Iboaya [facility] [address] [place] [address] [place] [address] 06/07/2024 Benili Ibhiren [facility] [address] [place] [address] [place] [address] 05/16/2024 Benili Iboacody [facility] [address] [place] [address] [place] [address] 05/13/2024 Benili Ibhiren [facility] [address] [place] [address] 05/11/2024 Benili Iboacody [facility] [address] [place] [address] [place] [address] 05/11/2024 Benili Ibhiren [facility] [address] [place] [address] [place] [address] 05/06/2024 Benili Ibhiren [facility] [address] [place] [address] [place] [address] 04/11/2024 Benili Iboaya Primary hyperparathyroidism E21.0 [facility] [address] [place] [address] 01/06/2025 Darielfredystacie Beltran Electrolyte abnormal ity E87.8 [facility] [address] [place] [address] 09/27/2024 Harrison Beltran Assessments Encounter Date Diagnosis (ICD Code) Assessment Notes Treatment Notes Treatment Clinical Notes Section Notes 04/11/2024 Primary hyperparathyroidism (ICD-10 - E21.0) 05/13/2024 [...] Lasix 80mg BID. DC Torsemide from his medical specialist. . 01/01/24__- Patient is normotensive in office [...] Lasix 80mg BID. DC Torsemide from his medical specialist. . 01/01/24__- Patient is normotensive in office [...] meds. , Patient was recently admitted to [facility] for peripheral vascular disease and had [...] meds. , Patient was recently admitted to [facility] for peripheral vascular disease and had [...] their detrimental effects on renal function 08/26/2024 Chronic kidney disease, stage 3a (ICD-10 [...] meds. , Patient was recently admitted to [facility] for peripheral vascular disease and had [...] Lasix 80mg BID. DC Torsemide from his medical specialist. . 01/01/24__- Patient is normotensive in office [...] and diastolic readings of 60 to 80. 09/23/2024 Essential hypertension, benign (ICD-10 - I10) [...] Lasix 80mg BID. DC Torsemide from his medical specialist. . 01/01/24__- Patient is normotensive in office [...] and diastolic readings of 60 to 80. 09/23/2024 Chronic kidney disease, stage 3b (ICD-10 - N18.32) 09/23/2024--- Patient with eGFR 34ml/min from 48ml/min consistent with CKD stage 3b. UPCR 0.16g/g, [id number], Uric Acid 5.3, Ca 11, Albumin 4.0, [...] meds. , Patient was recently admitted to [facility] for peripheral vascular disease and had [...] their detrimental effects on renal function 11/11/2024 Essential hypertension, benign (ICD-10 - I10) [...] Lasix 80mg BID. DC Torsemide from his medical specialist. . 01/01/24__- Patient is normotensive in office [...] diastolic readings of 60 to 80. 11/11/2024 Chronic kidney disease, stage 3a (ICD-10 [...] consistent with CKD stage 3b. UPCR 0.16g/g, [id number], Uric Acid 5.3, Ca 11, Albumin 4.0, [...] meds. , Patient was recently admitted to [facility] for peripheral vascular disease and had [...] and their detrimental effects on renal function 12/09/2024 Hypercalcemia (ICD-1 0 - E83.52) 12/09/2024 Chronic kidney disease, stage 2 (mild) (ICD-10 - N18.2) 12/09/2024 Chronic kidney disease, stage 4 (severe) (ICD-10 - N18.4) 12/09/2024 Hypertensive chronic kidney disease w stg 1-4/unsp chr kdny (ICD-10 - I12.9) 12/09/2024 Calcium disorder (ICD-10 - E83.50) 12/09/2024 Essential hypertension, benign (ICD-10 - I10) 12/09/24- - Patient is Normotensive in office with readings of 138 Patient reports *tensive readings at home. -Cont Losartan 25 mg daily, Cont Aldactone 50mg, Coreg 12.5mg BID -Incrase Lasix to 80 mg BID 11/11/2024- - Patient reports normotensive readings at [...] Lasix 80mg BID. DC Torsemide from his medical specialist. . 01/01/24__- Patient is normotensive in office [...] and diastolic readings of 60 to 80. 12/09/2024 Chronic kidney disease, stage 3a (ICD-10 - N18.31) 12/09/2024- - Patient with eGFR of 54ml/min from prior 49ml/min consistent with CKD stage 3a. Patient with a UPCR 0.17g/g. -Cont Losartan 25 mg daily -Cont Jardiance 12.5 mg daily 11/11/2024- - Patient with eGFR of 49ml/min [...] consistent with CKD stage 3b. UPCR 0.16g/g, [id number], Uric Acid 5.3, Ca 11, Albumin 4.0, [...] meds. , Patient was recently admitted to [facility] for peripheral vascular disease and had [...] and their detrimental effects on renal function 12/09/2024 Chronic kidney disease, stage 3b (ICD-10 - N18.32) 01/06/2025 Electrolyte abnormality (ICD-10 - E87.8) 04/08/2024 Primary hyperparathyroidism (ICD-10 - E21.0) 04/08/24-----iPTH [...] hypercalcemia could be from [facility]; primary hPTH; [place] or malignancy. Plan to obtain a nuclear scan of patient's parathyroid glands to determine hyperactivity of the glands. Plan also to monitor her urine electrolyte level to determine patient's urine calcium excretion. Treatment at this time with complete discontinuation of any vitamin D, dietary education of a low calcium, and plan to initiate treatment with Sensipar on return to clinic after diagnostic studies. 12/09/2024 CHF (congestive hear t failure) (ICD-10 - I50.9) 04/08/2024 Essential hypertension, benign (ICD-10 - I10) 04/08/24--- Patient is normotensive in office with readings of 135/61. Patient reports normotensive readings at home. Will continue with Entresto 24/26mg daily--from cardiology and off his Losartan 100mg daily but continue Lasix 80mg BID. DC Torsemide from his medical specialist. . 01/01/24__- Patient is normotensive in office [...] and their detrimental effects on renal function 12/09/2024 Primary hyperparathyroidism (ICD-10 - E21.0) 12/09/2024- - Ca 10.1, iPTH 164.0. -cont to monitor for now with frequent labs -will check his vit D levels on his next visit -pt would like to wait before going to [place] to see Dr. Ferrara 11/11/2024- - Ca 10.0, iPTH 164.0. Pt's [...] hypercalcemia could be from [facility]; primary hPTH; [place] or malignancy. Plan to obtain a nuclear [...] return to clinic after diagnostic studies. 11/11/2024 Primary hyperparathyroidism (ICD-10 - E21.0) 11/11/2024- [...] hypercalcemia could be from [facility]; primary hPTH; [place] or malignancy. Plan to obtain a nuclear [...] hypercalcemia could be from [facility]; primary hPTH; [place] or malignancy. Plan to obtain a nuclear [...] return to clinic after diagnostic studies. 08/26/2024 Primary hyperparathyroidism (ICD-10 - E21.0) 08/26/24- [...] hypercalcemia could be from [facility]; primary hPTH; [place] or malignancy. Plan to obtain a nuclear [...] Lasix 80mg BID. DC Torsemide from his medical specialist. . 01/01/24__- Patient is normotensive in office [...] diastolic readings of 60 to 80. 07/01/2024 Primary hyperparathyroidism (ICD-10 - E21.0) 07/01/24- [...] hypercalcemia could be from [facility]; primary hPTH; [place] or malignancy. Plan to obtain a nuclear [...] hypercalcemia could be from [facility]; primary hPTH; [place] or malignancy. Plan to obtain a nuclear [...] return to clinic after diagnostic studies. 05/13/2024 Electrolyte abnormality (ICD-10 - E87.8) 05/13/24---Na [...] hypercalcemia could be from [facility]; primary hPTH; [place] or malignancy. Plan to obtain a nuclear [...] return to clinic after diagnostic studies. 07/01/2024 Electrolyte abnormality (ICD-10 - E87.8) 07/01/24- [...] 05/15/23--Uric acid 10.0. Start allopurinol 100mg daily 08/26/2024 Electrolyte abnormality (ICD-10 - E87.8) 08/26/24- [...] Uric acid 10.0. Start allopurinol 100mg daily 12/09/2024 Fluid overload (ICD-10 - E87.70) 12/09/24 +3/4 Lower extremity edema with recommendations for a low salt diet of less than 2000mg a day and a fluid restriction of less than 48oz a day. -Increase Lasix to 80 mg BID -cont with Na restriction and Fluid restriction to 2L 04/08/2024 Electrolyte abnormality (ICD-10 - E87.8) 04/08/24----Na [...] dosage of diuretic needed for that day. 12/09/2024 Electrolyte abnormality (ICD-10 - E87.8) 12/09/2024- - Na 137, K 4.1, Cl 103, CO2 22, Phos 2.3, Ca 10.1, Mg 2.4. -cont to follow low Ca diet -cont Mg gluconate 11/11/2024- - Na 137, K 4.7, Cl [...] Uric acid 10.0. Start allopurinol 100mg daily 04/08/2024 Hypercalcemia (ICD-1 0 - E83.52) 04/08/24----iPTH [...] diagnostic studies. DC his Vit D med 07/15/2024 Hypercalcemia (ICD-1 0 - E83.52) 07/15/24- [...] studies. DC his Vit D med 05/13/2024 CHF (congestive hear t failure) (ICD-10 [...] dosage of diuretic needed for that day. 12/09/2024 Diabetes mellitus type 2 with complications (ICD-10 - E11.8) 12/09/2024- - Glucose at time of lab draw 128. Continue with strict glucose management and monitoring. Continue diabetic diet. 11/11/2024- - Glucose at time of lab [...] recommendations for a strict ADA 2000calorie diet. 09/23/2024 Diabetes mellitus type 2 with [...] recommendations for a strict ADA 2000calorie diet. 08/26/2024 Diabetes mellitus type 2 with complications [...] for a strict ADA 2000calorie diet. 04/08/2024 CHF (congestive hear t failure) (ICD-10 [...] dosage of diuretic needed for that day. 04/08/2024 Diabetes mellitus type 2 with complications [...] recommendations for a strict ADA 1999calorie diet. 07/01/2024 Diabetes mellitus type 2 with [...] recommendations for a strict ADA 1999calorie diet. 07/15/2024 Diabetes mellitus type 2 with complications [...] recommendations for a strict ADA 2000calorie diet. 05/13/2024 Diabetes mellitus type 2 with [...] recommendations for a strict ADA 2000calorie diet. 05/13/2024 Other 05/13/24--- Patient with eGFR of 26ml/min from prior 34ml/min consistent with CKD stage 4. Patient with a Uric acid 13.2, iPTH 166, Ca 8.8 from 9.6, Albumin 4.1, Phos 2.4--increase in diary product, K 2.3----start Aldactone 50mg daily--continue with Lasix 80mg and ENtresto and Jardiance meds. , Patient was recently admitted to [facility] for peripheral vascular disease and had [...] detrimental effects on renal function 11/11/2024 Other 12/09/2024 Other 12/09/2024- - * BLE edema. 11/11/2024- - Denies increase to BLE edema. [...] dosage of diuretic needed for that day. Plan Of Treatment Pending Test Test Name Order Date Phosphorus, Serum 12/12/2022 Phosphorus, Serum 05/15/2023 Phosphorus, Serum 11/14/2022 Phosphorus, Serum 09/23/2024 Phosphorus, Serum 08/26/2024 Phosphorus, Serum 07/15/2024 Phosphorus, Serum 07/01/2024 Phosphorus, Serum 05/13/2024 Phosphorus, Serum 01/01/2024 Phosphorus, Serum 10/02/2023 Phosphorus, Serum 07/03/2023 Phosphorus, Serum 03/20/2023 Phosphorus, Serum 02/13/2023 Phosphorus, Serum 11/11/2024 Phosphorus, Serum 04/08/2024 Uric Acid, Serum 11/11/2024 Uric Acid, Serum 04/08/2024 Uric Acid, Serum 02/13/2023 Uric Acid, Serum 10/02/2023 Uric Acid, Serum 03/20/2023 Uric Acid, Serum 07/03/2023 Uric Acid, Serum 01/01/2024 Uric Acid, Serum 07/15/2024 Uric Acid, Serum 05/13/2024 Uric Acid, Serum 08/26/2024 Uric Acid, Serum 09/23/2024 Uric Acid, Serum 11/14/2022 Uric Acid, Serum 05/15/2023 Uric Acid, Serum 12/12/2022 Magnesium, Serum 11/14/2022 Magnesium, Serum 07/01/2024 Magnesium, Serum 07/15/2024 Magnesium, Serum 05/13/2024 Magnesium, Serum 03/20/2023 Magnesium, Serum 02/13/2023 Magnesium, Serum 11/11/2024 Complement C4, Serum 11/14/2022 Protein Electro, 24-Hour Urine Creatine+Creatinine, 24-Hr Ur 11/14/2022 TSH 11/14/2022 TSH 05/13/2024 Complement C3, Serum 11/14/2022 PTH, Intact 11/14/2022 PTH, Intact 12/12/2022 PTH, Intact 05/15/2023 PTH, Intact 08/26/2024 PTH, Intact 09/23/2024 PTH, Intact 05/13/2024 PTH, Intact 01/01/2024 PTH, Intact 10/02/2023 PTH, Intact 07/03/2023 PTH, Intact 04/08/2024 Vitamin D, 25-Hydroxy 11/14/2022 Hepatitis Panel (4) 11/14/2022 Renal Panel (10) 11/14/2022 Renal Panel (10) 07/15/2024 Renal Panel (10) 07/01/2024 Renal Panel (10) 11/11/2024 Renal Panel (10) 02/13/2023 Renal Panel (10) 03/20/2023 Renal Panel (10) 05/13/2024 CBC 01/01/2024 CBC 07/03/2023 CBC 10/02/2023 CBC 03/20/2023 CBC 02/13/2023 CBC 04/08/2024 CBC 11/11/2024 CBC 07/15/2024 CBC 08/26/2024 CBC 09/23/2024 CBC 05/15/2023 CBC 12/12/2022 Urinalysis (hospital) 11/14/2022 Urine Culture and Sensitivity 05/13/2024 Ultrasound : Kidneys and Bladder 023 Urinalysis 12/12/2022 urine protein 11/14/2022 urine protein 05/13/2024 urine creatinine 05/13/2024 urine creatinine 11/14/2022 RENAL PANEL 05/15/2023 RENAL PANEL 12/12/2022 RENAL PANEL 09/23/2024 RENAL PANEL 08/26/2024 RENAL PANEL 01/01/2024 RENAL PANEL 10/02/2023 RENAL PANEL 04/08/2024 RENAL PANEL 07/03/2023 RENAL FUNCTION PANEL 12/09/2024 PHOSPHORUS 12/09/2024 MAGNESIUM 12/09/2024 HEMOGLOBIN A1C 11/14/2022 HEMOGLOBIN A1C 05/13/2024 PROTEIN/CREAT RATIO, UR 12/09/2024 URINALYSIS 12/09/2024 PTH, Intact 12/09/2024 PARATHYROID SPECT WITH MED 12/12/2022 Vitamin D 25 OH 12/09/2024 Magnesium Level 09/23/2024 Magnesium Level 08/26/2024 Magnesium Level 12/12/2022 Magnesium Level 05/15/2023 Magnesium Level 01/01/2024 Magnesium Level 10/02/2023 Magnesium Level 07/03/2023 Magnesium Level 04/08/2024 Parathyroid Hormone Intact 11/11/2024 Parathyroid Hormone Intact 02/13/2023 Parathyroid Hormone Intact 03/20/2023 Parathyroid Hormone Intact 07/15/2024 Urinalysis with Culture if indicated Urinalysis with Culture if indicated 08/2024 Urinalysis with Culture if indicated 06/2024 Urinalysis with Culture if indicated Urinalysis with Culture if indicated 02/2024 Urinalysis with Culture if indicated Urinalysis with Culture if indicated Urinalysis with Culture if indicated Urinalysis with Culture if indicated 01/2024 Urinalysis with Culture if indicated Urinalysis with Culture if indicated 01/2024 Urine Protein Creatinine Ratio 4 Urine Protein Creatinine Ratio 3 Urine Protein Creatinine Ratio 4 Urine Protein Creatinine Ratio 4 Urine Protein Creatinine Ratio 5 Urine Protein Creatinine Ratio 3 Urine Protein Creatinine Ratio 4 Urine Protein Creatinine Ratio 3 Urine Protein Creatinine Ratio 3 Urine Protein Creatinine Ratio 3 Urine Protein Creatinine Ratio 5 Urine Protein Creatinine Ratio 5 Urine Protein Creatinine Ratio 5 CBC w/ Diff 12/09/2024 Cystatin C with Estimated GFR,[facility] Cystatin C with Estimated GFR,[facility] Cystatin C with Estimated GFR,[facility] Next Appt Details Provider Name:Harrison alvarenga, 03/10/2025 01:15:00 PM, [address] [place] [address] [place], [address], Insurance Providers Payer Name Payer Address Payer Phone Subscriber Number Group Number Insured Name Patient Relationship to Insured Coverage Start Date Coverage End [place] [address] [place] [phone] [id number] Piotr Kerr Self - patient is the [...] Lymph Node removed 1960 Vascular procedure 02/2024 r big toe amputation 10/2024 Hospitalization History Reason Date(Month/Year) Stroke COVID-19 Fluid Retention 2022 [facility] 1 week stay [facility]. 07/2024 R big toe amputation. 10/2024
--- OUTSIDE RECORDS SUMMARY | 2025-01-29 14:16 | XMS_ITS | Clinical Summary ---
Author Organization [facility] Address [address] [place] [address] Care Team Providers Care [employer] Name Role Phone Alma Kan MD Unavailable Social History Tobacco Use Types Packs/Day Years Used Date Smoking Tobacco: Never Assessed Sex and Gender Information Value Date Recorded Sex Assigned at Not on file Legal Sex Male 1:50 PM EDT Gender Identity Not on file Sexual Orientation Not on file Plan of Treatment Not on file Insurance [facility] [place] [employer] Care Teams [employer] Relationship Specialty Start Date End Date Alma Kan MD [address] [facility] [place] [address] Referring Internal Medicine 10/07/23
--- OUTSIDE RECORDS SUMMARY | 2025-01-29 14:16 | XMS_ITS | Encounter Summary ---
Author Organization [facility] Address [address], [address] [place] [address] Care Team Providers Care Resaw Machine Operator Name Role Phone Kelby Warner DO Primary Care Provider Reason for Referral * Imaging (Routine) - Closed Specialty Diagnoses / Procedures Referred By Contac t Referred To Contact Radiology Diagnoses Primary hyperparathyroidism Hypercalcemia Essential (primary) hypertension Chronic kidney disease, stage II (mild) Procedures NM PARATHYORID W SPECT Harrison Beltran DO [address] [place] [address] Phone: tel: fax: Referral ID Status Reason Start Date Expiration Date Visits Re quested Visits Authorized [id number] Closed 01/15/2023 03/01/2023 1 1 Encounter Details Date Type Department Care Team (Latest Contact Info) Description 01/02/2023 Transcribe Orders [facility] [address] [place] [address] [id number] Harrison Beltran U, DO [address] [place] [address] Primary hyperparathyroidism (Primary Dx); Hypercalcemia; Essential (primary) hypertension; Chronic kidney disease, stage II (mild) Social History Tobacco Use Types Packs/Day Years [...] Description 03/15/2025 1:30 PM EDT Office Visit [facility] Part [address] [place] [address] Marvin Nielson MD [address] [place] [address] [address] [place] [address] F/U from 09/14/24 04/12/2025 2:30 PM EST Office Visit [facility] Part [address] [place] [phone] Jeb Dyer PA-C [address] [place] [address] [address] [place] [address] 6M pvr 04/27/2025 1:40 PM EST Office Visit [facility] Part [address] [address] Alma Kan MD [address] [place] [address] [place] [address] 6 month 07/12/2025 1:00 PM EST Pharmacy Visit [facility] Medication Management [address] [place] [address] Heart Failure FU- 6month follow-up 10/09/2025 1:00 PM EDT Office Visit [facility] Part of [facility] [address] [facility] [address] [place] [address] Jeb Dyer PA-C [address] [place] [address] 1Y psa documented as of this encounter Results * NM PARATHYORID W SPECT (01/15/2023 12:31 PM EDT) Anatomical Region Laterality Modality Neck Nuclear Medicine 01/15/2023 2:59 PM EDT Impressions 01/15/2023 3:53 PM EDT No parathyroid adenoma localized. Narrative 01/15/2023 3:53 PM EDT EXAMINATION: NUCLEAR MEDICINE PARATHYROID SCINTIGRAPHY WITH SPECT/CT. 01/15/2023 TECHNIQUE: After 30.3 Tc99m sestamibi was administered intravenously, immediate planar images are obtained of the neck. Delayed images of the neck are obtained in the same positions at 90 and 240 mins. SPECT images are obtained following the immediate images. SPECT/CT images of the neck were obtained following the delayed images. CT images were obtained for attenuation and localization purposes only. Multiplanar reformatted fused images were used for interpretation. COMPARISON: No pertinent complimentary Imaging. HISTORY: ORDERING SYSTEM PROVIDED HISTORY: Primary hyperparathyroidism (HCC) Vitamin D level low, 20.5. PTH level elevated, 164.8. Calcium level mildly elevated at 10.8 FINDINGS: Immediate images: Homogeneous uptake within the thyroid gland is noted without focal areas of increase activity. Delayed images: Washout of radiotracer from the thyroid gland is noted without focal areas of abnormally increased activity. Physiologic activity is present in the salivary glands and heart. : No focal areas of abnormal radiotracer activity identified. Procedure Note Carmen Carr MD - 01/15/2023 EXAMINATION: NUCLEAR MEDICINE PARATHYROID SCINTIGRAPHY WITH SPECT/CT. 01/15/2023 TECHNIQUE: After 30.3 Tc99m sestamibi was administered intravenously, immediateplanar images are obtained of the neck. Delayed images of the neck are obtainedin the same positions at 90 and 240 mins. SPECT images are obtained following the immediate images. SPECT/CT imagesof the neck were obtained following the delayed images. CT images wereobtained for attenuation and localization purposes only. Multiplanar reformattedfused images were used for interpretation. COMPARISON: No pertinent complimentary Imaging. HISTORY: ORDERING SYSTEM PROVIDED HISTORY: Primary hyperparathyroidism (HCC) Vitamin D level low, 20.5. PTH level elevated, 164.8. Calcium levelmildly elevated at 10.8 FINDINGS: Immediate images: Homogeneous uptake within the thyroid gland is noted without focal areasof increase activity. Delayed images: Washout of radiotracer from the thyroid gland is noted without focal areasof abnormally increased activity. Physiologic activity is present in the salivary glands and heart. : No focal areas of abnormal radiotracer activity identified. IMPRESSION: No parathyroid adenoma localized. Harrison Beltran DO IM NM ORDERABLES Final Res ult documented in this encounter Visit Diagnoses Diagnosis Primary hyperparathyroidism- Primary Hypercalcemia Essential (primary) hypertension Unspecified essential hypertension Chronic kidney disease, stage II (mild) Chronic kidney disease, Stage II (mild) Primary hyperparathyroidism Hypercalcemia Essential (primary) hypertension Unspecified essential hypertension Chronic kidney disease, stage II (mild) Chronic kidney disease, Stage II (mild) documented in this encounter Additional Health Concerns Infection Onset Date Last Indicated Resolved Time COVID-19 (Rule Out) 07/22/2024 07/22/2024 07/22/19 25 2:19 PM EST documented as of this encounter Care Teams Resaw Machine Operator Relationship Specialty Start Date End Date Kelby Warner DO [address] [place] [address] PCP - General Internal Medicine 04/17/21 documented as of this encounter
--- OUTSIDE RECORDS SUMMARY | 2025-01-29 14:18 | XMS_ITS | CCD ---
Author Organization [facility] Care Team Providers Care Bladder Trimmer Name Role Phone Pia Douglass Primary Care Provider [phone] Jorge Pritchett DO Primary Care Provider LEANDRO VIDALES Attending Unavailable RAJAT HURST Admitting Unavailable JORGE PRITCHETT Primary Care Unavailable Jorge Pritchett DO Primary Care Provider DASHA Douglass Primary Care Provider MD Alma Kan Attending Provider [phone] Jorge Pritchett DO Primary Care Provider Jorge Pritchett DO Primary Care Provider Jorge Pritchett Unavailable DR JORGE PRITCHETT Primary Care Unavailable DIAB ., HAILEY Attending Unavailable DIAB ., HAILEY Consulting Unavailable DIAB ., HAILEY Admitting Unavailable NEITLICHREBEKAH Consulting Unavailable ZIEBER, DR ALICE Nuñez Consulting Unavailable KEV ., PETTY Attending Unavailable KEV ., PETTY Admitting Unavailable YARELY, DR PATEL Primary Care Unavailable KEV ., PETTY Consulting Unavailable FLOYD CUELLO Consulting Unavailable YARELY, DR PATEL Admitting Unavailable YARELY, DR PATEL Attending Unavailable YARELY, DR PATEL Primary Care Unavailable KEV ., PETTY Attending Unavailable KEV ., PETTY Consulting Unavailable PETTY LOCKHART Admitting Unavailable YARELY, DR PATEL Primary Care Unavailable Jorge Pritchett DO Primary Care Provider Jorge Pritchett DO Primary Care Provider DASHA Douglass Primary Care Provider DO Jorge Pritchett Attending Provider Jorge Pritchett Admitting Unavailable Pia Douglass Primary Care Unavailable Jorge Pritchett Unavailable Pia Douglass Primary Care Unavailable Ahmad, Ali Attending Unavailable Ahmad, Ali Admitting Unavailable Yarely GREENBERG, Jorge Lehman Primary Care Provider Werner Sunshine MD Consulting Unavai raquel Pritchett DO, Jorge Conte Primary Care Unavail able Florian ROMO, Yoel Attending Unavailable Florian DO, Yoel Admitting Unavailable Roseline Autumn BRAND Consulting Unavailable Iboaya, Benahili Lonnieariomien Consulting Unav ailable CORREA, HEMINDERMEET Admitting Unavailable CORREA, HEMINDERMEET Attending Unavailable BALL, JORGE Primary Care Unavailable Yarely ROMO, Jorge Lehman Primary Care Provider MARY, ALICE Cosby Attending Unavailable RUSHER, ALICE Cosby Attending Unavailable RUSHER, ALICE Cosby Attending Unavailable RUSHER, ALICE Cosby Attending Unavailable RUSHER, ALICE Cosby Attending Unavailable RUSHER, ALICE Cosby Attending Unavailable RUSHER, ALICE Cosby Attending Unavailable Jorge Pritchett DO Primary Care Provider [phone] Jeremias Sullivan DO Attending Provider Yarely ROMO, Jorge Attending Provider [phone] YARELY, JORGE Primary Care Unavailable QUINCY PENN Referring Unavailable ALMA KAN Referring Unavailable BALL, JORGE Primary Care Unavailable BALL, JORGE Referring Unavailable BALL, JORGE Primary Care Unavailable YARELY, JORGE Referring Unavailable BALL, JORGE Primary Care Unavailable QUINCY PENN Attending Unavailable LEV DUARTE Referring Unavailable YARELY, JORGE Primary Care Unavailable QUINCY PENN Admitting Unavailable QUINCY PENN Attending Unavailable BALL, JORGE Primary Care Unavailable BALL, JORGE Primary Care Unavailable ASHA GODFREY Attending Unavailable QUINCY PENN Attending Unavailable QUINCY PENN Referring Unavailable YARELY, JORGE Primary Care Unavailable IBOAYA, BENAHILI U Referring Unavailable BALL, JORGE Primary Care Unavailable BALL, JORGE Referring Unavailable BALL, JORGE Primary Care Unavailable ELNILES NEGRETE Referring Unavailable BALL, JORGE Primary Care Unavailable IBOAYA, BENAHILI U Referring Unavailable BALL, JORGE Primary Care Unavailable LEV DUARTE Referring Unavailable BALL, JORGE Primary Care Unavailable BALL, JORGE Referring Unavailable BALL, JORGE Primary Care Unavailable HALLIE CORRAL Referring Unavailable BALL, JORGE Primary Care Unavailable IBOAYA, BENAHILI U Referring Unavailable BALL, JORGE Primary Care Unavailable IBOAYA, BENAHILI U Referring Unavailable BALL, JORGE Primary Care Unavailable AHMAD, ALI F O Referring Unavailable BALL, JORGE Primary Care Unavailable IBOAYA, BENAHILI U Referring Unavailable BALL, JORGE Primary Care Unavailable DORKOSKARABELLA SHELTON Referring Unavailable BALL, JORGE Primary Care Unavailable BREMYERQUINCY Referring Unavailable BALL, JORGE Primary Care Unavailable AHMAD, ALI F O Referring Unavailable BALL, JORGE Primary Care Unavailable AHMAD, ALI F O Referring Unavailable BALL, JORGE Primary Care Unavailable AHMAD, ALI F O Referring Unavailable BALL, JORGE Primary Care Unavailable AHMAD, ALI F O Referring Unavailable BALL, JORGE Primary Care Unavailable AHMAD, ALI F O Referring Unavailable BALL, JORGE Primary Care Unavailable AHMAD, ALI F O Referring Unavailable BALL, JORGE Primary Care Unavailable AHMAD, ALI F O Referring Unavailable BALL, JORGE Primary Care Unavailable BREMYER, QUINCY Walters Referring Unavailable BALL, JORGE Primary Care Unavailable BURKET, FLOYD Walters Attending Unavailable BURKET, FLOYD Walters Referring Unavailable BALL, JORGE Primary Care Unavailable BREMYERQUINCY Referring Unavailable BALL, JORGE Primary Care Unavailable DORKOSKCAT, ARABELLA Lucero Referring Unavailable BALL, JORGE Primary Care Unavailable BALL, JORGE Primary Care Unavailable LEV DUARTE Referring Unavailable BALL, JORGE Primary Care Unavailable BALL, JORGE Primary Care Unavailable FRED VILLEGAS Admitting Unavailable FRED VILLEGAS Attending Unavailable JUAN PAULA Consulting Unavailable BURKET, FLOYD Walters Admitting Unavailable BURKET, FLOYD Walters Attending Unavailable BALL, JORGE Primary Care Unavailable BALL, JORGE Primary Care Unavailable POSADGABBY HICKS Attending Unavailable BALL, JORGE Primary Care Unavailable BALL, JORGE Referring Unavailable BREMYERQUINCY Referring Unavailable BALL, JORGE Primary Care Unavailable DORKOSKIE, ARABELLA D Referring Unavailable BALL, JORGE Primary Care Unavailable Allergies Allergy Classification Reported Allergen(s) Allergy Type Date of Onset Reaction(s) Facility (20 sources) Ciprofloxacin; Translations: [ciprofloxacin] Drug Allergy 01-21-20 [facility] (20 sources) Azithromycin; Translations: [azithromycin] Drug Allergy 07-17-19 Dizziness or Vertigo, Unknown [facility] (20 sources) Lisinopril; Translations: [lisinopril] Drug Allergy 07-17-19 [facility] Other (2 sources) Ciprofloxacin Drug Allergy 01-21-20 [facility] (2 sources) Allergies Reconciled Propensity to adverse reactions Unknown [employer] Other (20 sources) dapagliflozin Drug Allergy 10-26-19 24 Itching [facility] Work Phone: (13 sources) Lisinopril Propensity to adverse reactions 07-17-19 23 Cough, Unknown [facility] (16 sources) Metoprolol Drug Allergy 07-31-19 25 [facility] dapagliflozin; Translations: [Farxiga] Drug Allergy [facility] Medications Current Medications Medication Drug Class(es) Dates Sig (Normalized) Sig (Original) acetaminophen 300 mg / codeine phosphate 30 mg oral tablet (13 sources) Opioid Agonist acetaminophen-co de ine (Tylenol w/ Codeine #3) 300-30 MG tablet TAKE 1 TABLET BY MOUTH EVERY 4 HOURS NEEDED FOR PAIN FOR UP TO 3 DAYS, TAKE LOWEST DOSE POSSIBLE TO MANAGE PAIN Oral for 3 Days Active allopurinol 100 mg oral tablet (20 sources) Xanthine Oxidase Inhibitor Start: 12-23-2024 take 1 tablet by mouth twice daily Allopurinol (Zyloprim) 100 mg tablet Active 100 MG PO Twice daily December 23, 2024 1:59pm Complies with drug therapy Start: 05-31-2024 End: 12-23-2024 take 2 tablets by mouth once daily Allopurinol (Zyloprim) 100 mg tablet Discontinued 200 MG PO Daily May 31, 2024 3:43pm December 23, 2024 2:03pm Start: 08-12-2023 End: 05-31-2024 take 1 tablet by mouth once daily Allopurinol (Zyloprim) 100 mg tablet Discontinued 100 MG PO Daily August 12, 2023 12:00am May 31, 2024 3:44pm amLODIPine 5 mg oral tablet (20 sources) Dihydropyridine Calcium Channel Jayde Start: 05-27-2021 take 1 tablet by mouth once daily amLODIPine (NORVASC) 5 MG tablet Indications: ASHD (arteriosclerotic heart disease) , S/P angioplasty with stent , Chronic systolic congestive heart failure (HCC) , Intermittent claudication (HCC) , Mixed hyperlipidemia , CHRIS on CPAP , Stage 3 chronic kidney disease, unspecified whether stage 3a or 3b CKD (HCC) , Adenoma of left adrenal gland , History of stroke Take 1 tablet by mouth nightly 90 tablet 3 10/30/2022 Active amoxicillin 875 mg / clavulanate 125 mg oral tablet (4 sources) Penicillin-class Antibacterial Start: 02-05-2024 End: 02-15-2024 take 1 tablet by mouth in the morning amoxicillin-clavulanat e (Augmentin) 875-125 MG tablet Indications: Cellulitis of left foot , Type II diabetes mellitus with peripheral circulatory disorder (CMS/HCC) , Diabetic polyneuropathy associated with type 2 diabetes mellitus (CMS/HCC) , Skin ulcer of midfoot region, left, limited to breakdown of skin (CMS/HCC) Take 1 tablet (875 mg) by mouth in the morning and 1 tablet (875 mg) before bedtime. Do all this for 10 days. 20 tablet 02/05/2024 02/15/2024 Active Start: 11-03-2023 End: 11-10-2023 take 1 tablet by mouth twice daily amoxicillin-clavulanate (AUGMENTIN) 875-125 MG per tablet Take 1 tablet by mouth 2 times daily for 7 days 14 tablet 0 11/03/2023 11/10/2023 Active aspirin 81 mg delayed release oral tablet (20 sources) Platelet Aggregation Inhibitor, Nonsteroidal Anti-inflammatory Drug Start: 05-27-2021 take 1 tablet by mouth once daily Aspirin 81 mg tablet,delayed release (DR/EC) Active 81 MG PO Daily August 11, 2023 12:00am Complies with drug therapy take 1 tablet by mouth once jarett y Aspirin 81 81 MG 1 tablet Orally Once a day Active bacillus coagulans [id number] unt / inulin 250 mg oral capsule (13 sources) Bacillus Coagula ns-Inulin (Probiotic) 1-250 BILLION-MG capsule Probiotic Active Blood-Glucose Sensor (Freestyle Sarmad 3 Sensor) device (3 sources) Start: 05-12-2024 Blood-Glucose Sensor (Freestyle Sarmad 3 Sensor) device Active 0 .ROUTE .MEDSUPPLY May 12, 2024 1:00am to test BS 4-6 times daily Start: 05-12-2024 Blood-Glucose Sensor (Freestyle Sarmad 3 Sensor) device Active 0 .ROUTE .MEDSUPPLY May 12, 2024 12:00am to test BS 4-6 times daily bumetanide 2 mg oral tablet (6 sources) Loop Diuretic Start: 07-15-2024 End: 01-11-2025 take 1 tablet by mouth at bedtime bumetanide (BUMEX) 2 MG tablet Take 1 tablet by mouth in the morning and at bedtime 07/15/2024 01/11/2025 Active calcium ascorbate 500 mg oral tablet (1 source) Start: 12-23-2024 take 1 tablet by mouth once daily Ascorbate Calcium (Vitamin C) 500 mg tablet Active 500 MG PO Daily December 23, 2024 12:00am Complies with drug therapy calcium carbonate 500 mg chewable tablet (4 sources) Start: 05-06-2024 End: 06-05-2024 take 1 tablet by mouth once daily calcium carbonate (ANTACID) 500 MG chewable tablet Take 1 tablet by mouth daily 30 tablet 05/06/2024 06/05/2024 Active Start: 02-26-2024 take 500 mg by mouth three times daily as needed 500 mg, Oral, 3 TIMES DAILY PRN, Starting on Thu02/26/24 at 0435, Until Discontinued, Heartburn calcium chloride 0.0014 meq/ ml / potassium chloride 0.004 meq/ml / sodium chloride 0.103 meq/ml / sodium lactate 0.028 meq/ml injectable solution (3 sources) Start: 11-11-2024 IntraVENous, a t 100 mL/hr, CONTINUOUS, Starting on Thu11/11/24 at 0645, Pre-op (day of surgery) Start: 11-03-2023 lactated ringe rs IV soln infusion Start: 07-15-2022 lactated ringe rs IV soln infusion carvedilol 12.5 mg oral tablet (20 sources) alpha-Adrenergic Jayde, beta-Adrenergic Jayde Start: 03-04-2023 take 1 tablet by mouth twice daily at mealtime carvedilol (COREG) 12.5 MG tablet TAKE ONE TABLET BY MOUTH TWICE A DAY (WITH MEALS) 60 tablet 5 04/25/2024 Active Start: 08-15-2021 take 1 tablet by mp th twice daily at mealtime carvedilol (COREG) 6.25 MG tablet Take 1 tablet by mouth 2 times daily (with meals) 180 tablet 3 10/15/2022 Active Start: 05-29-2021 take 1 tablet by mp th twice daily at mealtime carvedilol (COREG) 3.125 MG tablet Take 1 tablet by mouth 2 times daily (with meals) 60 tablet 3 05/31/2021 Active cephalexin 500 mg oral capsule (11 sources) Cephalosporin Antibacterial Start: 11-01-2024 End: 11-11-2024 take 1 capsule by mouth twice daily cephALEXin (KEFLEX) 500 MG capsule Indications: Infection of toe , Chronic ulcer of great toe of right foot with fat layer exposed (HCC) , Osteomyelitis of great toe of right foot (HCC) Take 1 capsule by mouth 2 times daily for 10 days 20 capsule 11/01/2024 11/11/2024 Active Start: 08-05-2024 End: 09-21-2024 take 1 capsule by mouth once daily Cephalexin 250 mg capsule Discontinued 250 MG PO Daily August 05, 2024 12:00am September 21, 2024 2:31pm Start: 02-28-2024 End: 02-28-2024 take 1 dose by mouth once 500 mg, Oral, ONCE, 1 dose, On Thu02/28/24 at 0630, Antimicrobial Indications: Skin and Soft Tissue Infection Start: 02-27-2024 End: 03-05-2024 take 1 capsule by mouth three times daily cephALEXin (KEFLEX) 500 MG capsule Take 1 capsule by mouth 3 times daily for 7 days 21 capsule 02/27/2024 03/05/2024 Active End: 08-16-2024 CEPHALEXIN PO Take by mouth in the morning and at bedtime 08/16/2024 Discontinued (LIST CLEANUP) clopidogrel 75 mg oral tablet (20 sources) P2Y12 Platelet Inhibitor Start: 02-24-2024 take 75 mg by mouth once daily 75 mg, Oral, DAILY, First dose on Thu02/24/24 at 1545, Until Discontinued Start: 08-20-2023 End: 09-16-2024 take 1 tablet by mouth once daily Clopidogrel 75 mg tablet Active 0 .ROUTE .COMPLEX September 16, 2024 12:57pm TAKE ONE TABLET BY MOUTH DAILY Complies with drug therapy Start: 08-20-2023 take 1 tablet by mp th once daily Clopidogrel Active 0 .ROUTE .COMPLEX August 20, 2023 12:13pm TAKE ONE TABLET BY MOUTH DAILY Start: 08-11-2023 End: 08-20-2023 take 1 tablet by mouth once daily Clopidogrel 75 mg tablet Discontinued 75 MG PO Daily August 11, 2023 12:00am August 20, 2023 12:13pm Start: 06-03-2021 End: 07-01-2022 take 1 tablet by mouth once daily clopidogrel (PLAVIX) 75 MG tablet Take 1 tablet by mouth daily 30 tablet 3 06/03/2021 07/01/2022 Discontinued (Therapy completed) Continuous Glucose Sensor (FREESTYLE SARMAD 3 SENSOR) MISC (20 sources) Start: 05-12-2024 Continuous Glu cose Sensor (FREESTYLE SARMAD 3 SENSOR) MISC 05/12/2024 Active Start: 05-12-2024 Continuous Glu cose Sensor (FREESTYLE SARMAD 3 SENSOR) MISC to test BS 4-6 times daily change EVERY 14 days 05/12/2024 Active cyclobenzaprine hydrochloride 10 mg oral tablet (2 sources) Muscle Relaxant Start: 05-27-2021 End: 06-10-2021 take 1 tablet by mouth three times daily as needed for muscle spasms cyclobenzaprine (FLEXERIL) 10 MG tablet Take 1 tablet by mouth 3 times daily as needed for Muscle spasms 30 tablet 0 05/31/2021 06/10/2021 Active D 1000 25 MCG (1000 UT) (2 sources) take 1 capsule by mouth once daily D 1000 25 MCG (1000 UT) 1 capsule Orally Once a day Active Dexcom 7 (2 sources) Start: 05-13-2023 Dexcom 7 apply sensor every 10 days transcutaneous use to test home BS 4-6x daily for 30 days Apr, Active empagliflozin 10 mg oral tablet (20 sources) Sodium-Glucose Cotransporter 2 Inhibitor Start: 11-16-2023 End: 12-23-2024 take 1 tablet by mouth once daily in the morning Empagliflozin 25 mg tablet Discontinued 25 MG PO Every morning September 21, 2024 9:08pm December 23, 2024 2:00pm Start: 10-02-2023 End: 11-16-2023 take 1 tablet by mouth once daily Empagliflozin (Jardiance) 10 mg tablet Active 10 MG PO Daily December 23, 2024 12:00am Complies with drug therapy famotidine 40 mg oral tablet (20 sources) Histamine-2 Receptor Antagonist Start: 12-23-2024 Famotidine 40 mg tablet Active 20 MG PO Twice daily December 23, 2024 2:01pm Complies with drug therapy Start: 07-12-2024 End: 12-23-2024 take 1 tablet by mouth once daily Famotidine 40 mg tablet Discontinued 40 MG PO Daily July 13, 2024 6:50pm December 23, 2024 2:03pm Start: 12-23-2023 End: 06-01-2024 take 1 tablet by mouth twice daily Famotidine 20 mg tablet Discontinued 0 .ROUTE .COMPLEX 60 December 23, 2023 12:49pm June 01, 2024 10:56am TAKE ONE TABLET BY MOUTH TWICE A DAY Start: 11-11-2022 End: 02-26-2024 take 1 tablet by mouth twice daily as needed famotidine (PEPCID) 20 MG tablet Take 1 tablet by mouth 2 times daily as needed 11/11/2022 Active Start: 11-11-2022 take 20 mg by mouth once daily as needed 20 mg, Oral, DAILY PRN, Starting on 02/27/24 at 0000, Until Discontinued, GERD fluticasone propionate 0.05 mg/actuat metered dose nasal spray (20 sources) Corticosteroid Start: 11-16-2024 take 1 spray(s) nasal route once daily Fluticasone Propionate 50 mcg/actuation spray,suspension Active 2 SPRAY INTRANASAL Daily November 16, 2024 12:00am administer into each nostril Complies with drug therapy Start: 08-29-2024 fluticasone (F LONASE) 50 MCG/ACT nasal spray 2 sprays by Nasal route daily as needed for Allergies 08/29/2024 Active Start: 08-29-2024 End: 09-21-2024 Fluticasone Propionate 50 mcg/actuation spray,suspension Discontinued 0 .ROUTE .COMPLEX August 29, 2024 10:58am September 21, 2024 2:44pm SPRAY 2 TIMES INTO EACH NOSTRIL DAILY 30 Start: 08-29-2024 End: 08-29-2024 take 1 spray(s) nasal route once daily Fluticasone Propionate (Allergy Relief (Fluticasone)) 50 mcg/actuation spray,suspension Discontinued 2 SPRAY INTRANASAL Daily August 29, 2024 12:00am August 29, 2024 10:58am administer into each nostril Fluticasone Prop ionate 50 MCG/ACT SPRAY 2 TIMES INTO EACH NOSTRIL DAILY for 30 Not-Taking/PRN Fluticasone Prop ionate 50 MCG/ACT SPRAY 2 TIMES INTO EACH NOSTRIL DAILY for 30 Active take 1 spray(s) nasa l route once daily Fluticasone Propionate 50 MCG/ACT 1 spray in each nostril Nasally Once a day Active furosemide 80 mg oral tablet (20 sources) Loop Diuretic Start: 12-23-2024 take 1 tablet by mouth twice daily Furosemide 80 mg tablet Active 80 MG PO Twice daily December 23, 2024 1:59pm Complies with drug therapy Start: 09-21-2024 End: 12-23-2024 Furosemide 80 mg tablet Disc ontinued 40 MG PO Every morning 90 90 September 21, 2024 9:09pm December 23, 2024 2:03pm Start: 09-21-2024 End: 09-21-2024 Furosemide 80 mg tablet Disc ontinued 40 MG PO Twice daily September 21, 2024 2:42pm September 21, 2024 9:09pm Start: 07-12-2024 End: 09-21-2024 take 1 tablet by mouth twice daily Furosemide 80 mg tablet Discontinued 80 MG PO Twice daily 180 90 September 21, 2024 9:08pm September 21, 2024 9:10pm Start: 04-08-2024 End: 07-12-2024 take 1 tablet by mouth once daily Furosemide 80 mg tablet Discontinued 80 MG PO Daily May 27, 2024 1:00am July 12, 2024 4:11pm Start: 02-27-2024 take 2 tablets by [facility] once daily furosemide (LASIX) 40 MG tablet Take 2 tablets by mouth daily 60 tablet 02/27/2024 Active Start: 02-24-2024 End: 02-26-2024 80 mg, IntraVENous, DAILY, F irst dose on Thu02/24/24 at 1545, Until Discontinued Start: 11-03-2023 End: 02-27-2024 take 1 tablet by mouth twice daily furosemide (LASIX) 40 MG tablet Take 1 tablet by mouth 2 times daily 60 tablet 11/03/2023 02/27/2024 Discontinued Start: 08-11-2023 End: 05-12-2024 Furosemide 40 mg tablet Disc ontinued 60 MG PO Daily August 11, 2023 12:00am May 12, 2024 9:06pm Start: 08-11-2023 take 60 mg by mouth once daily Furosemide Active 60 MG PO Daily August 11, 2023 12:00am Start: 06-01-2021 take 1.5 tablets by mouth once daily furosemide (LASIX) 40 MG tablet Take 1.5 tablets by mouth daily 0 06/01/2021 Active Start: 06-01-2021 take 2 tablets by mo [facility] once daily furosemide (LASIX) 40 MG tablet Take 2 tablets by mouth daily 0 06/01/2021 Active Start: 05-30-2021 take 1 tablet by mp once daily furosemide (LASIX) 40 MG tablet Take 1 tablet by mouth daily 07/29/2024 Active Start: 05-27-2021 End: 05-30-2021 take 40 mg by mouth twice daily 40 mg, Oral, 2 TIMES D AILY, First dose on Thu05/27/21 at 2100 furosemide (Lasi x) 80 MG tablet Take 20 mg by mouth Daily Active take 1 tablet by mp th in the morning furosemide (Lasix) 20 MG tablet Take 20 mg by mouth in the morning. Active End: 05-31-2021 take 2 tablets by mouth twice daily furosemide (LASIX) 20 MG tablet Take 40 mg by mouth 2 times daily 0 05/31/2021 Discontinued (Stop Taking at Discharge) glucagon (rdna) 1 mg injecti on (2 sources) Antihypoglycemic Agent Start: 02-24-2024 Start: 05-27-2021 take 1 mL intravenou sly every hour 1 mg, IntraMUSCular, PRN, Low blood sugar, Blood glucose less than 70 mg/dL and patient NOT ALERT or NPO and does not have IV access., Starting on Thu05/27/21 at 1618 After administration, attempt intravenous access and start D5W at 100 mL/hr. Repeat blood glucose in 15 minutes x2 and notify provider. 1000 ml glucose 100 mg/ml in jection (6 sources) Start: 02-24-2024 Start: 02-24-2024 dextrose bolus 10% 125 mL Start: 02-24-2024 Start: 05-27-2021 15 g, Oral, WV N, Low blood sugar, Starting on 1/3/22 at 1618 If blood glucose less than 50 mg/dL and patient ALERT and TOLERATING PO, give 2 tubes glucose gel. If blood glucose less than 70 mg/dL and patient ALERT and TOLERATING PO, give 1 tube glucose gel. Repeat blood glucose in 15 minutes. If blood glucose is less than 70 mg/dL, repeat treatment and recheck blood glucose in 15 minutes x2 and notify provider. Start: 05-27-2021 12.5 g, IntraV ENous, PRN, Low blood sugar, Blood glucose less than 70 mg/dL and patient NOT ALERT or NPO., Starting on Thu05/27/21 at 1618 If patient does not respond within 5 minutes, repeat dose x1. Start D5W at 100 mL/hour until ordering provider can be reached. Repeat blood glucose in 15 minutes. If blood glucose is less than 70 mg/dL, repeat treatment and recheck blood glucose in 15 minutes x2. If using Glucostabilizer, dose as instructed per system. Start: 05-27-2021 100 mL/hr, Int raVENous, PRN, Low blood sugar, Starting on Thu05/27/21 at 1618 Start infusion following administration of dextrose 50% or glucagon. 1.5 ml insulin glargine 300 unt/ml pen injector (20 sources) Insulin Analog Start: 09-21-2024 inject 30 [IU] by subcutaneous injection twice daily Insulin Glargine U-300 Conc (Toujeo Solostar U-300 Insulin) 300 unit/mL (1.5 mL) insulin pen Active 30 UNIT SUBCUT Twice daily 11 21September 21, 2024 9:10pm Complies with drug therapy Start: 05-03-2024 End: 09-21-2024 Insulin Glargine U-300 Conc (Toujeo Solostar U-300 Insulin) 300 unit/mL (1.5 mL) insulin pen Discontinued 60 UNIT SUBCUT Daily at bedtime 11 21July 19, 2024 1:54pm September 21, 2024 9:10pm Start: 02-24-2024 20 Units, SubC UTAneous, 2 TIMES DAILY, First dose on Thu02/24/24 at 2100, Until Discontinued, Caution: Highly concentrated insulin. Long acting insulin: DO NOT HOLD without physician order. DO NOT MIX or dilute with any other insulin. Start: 02-23-2024 End: 05-03-2024 inject 20 [IU] by subcutaneous injection in the morning, then inject 50 [IU] by subcutaneous injection in the evening Insulin Glargine U-300 Conc (Toujeo Solostar U-300 Insulin) 300 unit/mL (1.5 mL) insulin pen Discontinued 0 .ROUTE .COMPLEX 4.5 March 02, 2024 5:00pm May 03, 2024 2:09pm INJECT 20 UNITS SUBCUTANEOUSLY IN THE MORNING and 50 UNITS SUBCUTANEOUSLY IN THE EVENING Start: 09-14-2023 End: 02-23-2024 inject 20 [IU] by subcutaneous injection once daily in the morning, then inject 40 [IU] by subcutaneous injection once daily in the evening Insulin Glargine U-300 Conc 300 unit/mL (1.5 mL) insulin pen Discontinued 0 SUBCUT Daily 4.5 October 13, 2023 12:55pm February 23, 2024 8:51pm 20 units in am and 40 units in pm subcutaneously daily Start: 08-11-2023 End: 09-14-2023 inject 1 [IU] by subcutaneous injection once daily in the morning Insulin Glargine U-300 Conc 300 unit/mL (1.5 mL) insulin pen Discontinued UNIT SUBCUT August 11, 2023 12:00am September 14, 2023 12:37pm FreeTextSiu am and 40u pm Subcutaneous daily; Note: Source Status: Continue; Provider: Yarely Lehman Start: 11-21-2021 TOUJEO SOLOSTA R 300 UNIT/ML SOPN Indications: 140 Inject 60 Units into the skin nightly Indications: 140 11/21/2021 Active Start: 11-21-2021 TOUJEO SOLOSTA R 300 UNIT/ML SOPN Indications: 140 Indications: 140 20 unit in the morning and 50 units every evening 11/21/2021 Active Start: 11-21-2021 inject 26 [IU] by valerio bcutaneous injection at bedtime TOUJEO SOLOSTAR 300 UNIT/ML SOPN INJECT 26 UNITS SUBCUTANEOUSLY AT BEDTIME 0 11/21/2021 Active Start: 06-20-2021 insulin glargi ne (LANTUS) 100 UNIT/ML injection vial Inject 15 Units into the skin nightly 10 mL 3 06/20/2021 Active Start: 05-27-2021 inject 25 [IU] by valerio bcutaneous injection twice daily 25 Units, SubCUTAneous, 2 TIMES DAILY, First dose on Thu05/27/21 at 2100 Lantus SoloStar 100 UNIT/ML 25 units Subcutaneous twice daily for 90 days 25 units BID Not-Taking/PRN Toujeo SoloStar 300 UNIT/ML 44 units Subcutaneous q HS Active insulin glargine (LANTUS) 100 UNIT/ML injection vial Inject 25 Units into the skin 2 times daily 0 Active Insulin Glargine U-300 Conc (5 sources) Start: 10-13-2023 inject 20 [IU] by subcutaneous injection once daily in the morning, then inject 40 [IU] by subcutaneous injection once daily in the evening Insulin Glargine U-300 Conc Active 0 SUBCUT Daily 4.5 October 13, 2023 12:55pm 20 units in am and 40 units in pm subcutaneously daily Start: 09-14-2023 End: 10-13-2023 inject 20 [IU] by subcutaneous injection once daily in the morning, then inject 40 [IU] by subcutaneous injection twice daily in the evening Insulin Glargine U-300 Conc Discontinued 0 SUBCUT Daily 4.5 September 14, 2023 12:38pm October 13, 2023 12:56pm 20 units in am and 40 units in pm subcutaneously twice daily Start: 09-14-2023 End: 09-14-2023 inject 20 [IU] by subcutaneous injection once daily in the morning, then inject 40 [IU] by subcutaneous injection twice daily in the evening Insulin Glargine U-300 Conc Discontinued 0 SUBCUT Daily September 14, 2023 12:36pm September 14, 2023 12:39pm 20 units in am and 40 units in pm subcutaneously twice daily Start: 08-11-2023 End: 09-14-2023 inject 1 [IU] by subcutaneous injection once daily in the morning Insulin Glargine U-300 Conc Discontinued UNIT SUBCUT August 11, 2023 12:00am September 14, 2023 12:37pm FreeTextSiu am and 40u pm Subcutaneous daily; Note: Source Status: Continue; Provider: Yarely Lehman Start: 08-11-2023 inject 1 [IU] by sub cutaneous injection once daily in the morning Insulin Glargine U-300 Conc Active UNIT SUBCUT August 11, 2023 12:00am FreeTextSiu am and 40u pm Subcutaneous daily; Note: Source Status: Continue; Provider: Yarely Lehman Insulin Glargine U-300 Conc (Toujeo Solostar U-300 Insulin) 300 unit/mL (1.5 mL) insulin pen (5 sources) Start: 07-19-2024 Insulin Glargi ne U-300 Conc (Toujeo Solostar U-300 Insulin) 300 unit/mL (1.5 mL) insulin pen Active 60 UNIT SUBCUT Daily at bedtime 11 21July 19, 2024 1:54pm Start: 05-03-2024 End: 07-19-2024 Insulin Glargine U-300 Conc (Toujeo Solostar U-300 Insulin) 300 unit/mL (1.5 mL) insulin pen Discontinued 60 UNIT SUBCUT Daily at bedtime 11 21May 03, 2024 2:09pm July 19, 2024 1:55pm Start: 05-03-2024 Insulin Glargi ne U-300 Conc (Toujeo Solostar U-300 Insulin) 300 unit/mL (1.5 mL) insulin pen Active 60 UNIT SUBCUT Daily at bedtime 11 21May 03, 2024 1:09pm Start: 03-02-2024 End: 05-03-2024 inject 20 [IU] by subcutaneous injection in the morning, then inject 50 [IU] by subcutaneous injection in the evening Insulin Glargine U-300 Conc (Toujeo Solostar U-300 Insulin) 300 unit/mL (1.5 mL) insulin pen Discontinued 0 .ROUTE .COMPLEX 4.March 02, 2024 5:00pm May 03, 2024 2:09pm INJECT 20 UNITS SUBCUTANEOUSLY IN THE MORNING and 50 UNITS SUBCUTANEOUSLY IN THE EVENING Start: 03-02-2024 End: 05-03-2024 inject 20 [IU] by subcutaneous injection in the morning, then inject 50 [IU] by subcutaneous injection in the evening Insulin Glargine U-300 Conc (Toujeo Solostar U-300 Insulin) 300 unit/mL (1.5 mL) insulin pen Discontinued 0 .ROUTE .COMPLEX 4.March 02, 2024 4:00pm May 03, 2024 1:09pm INJECT 20 UNITS SUBCUTANEOUSLY IN THE MORNING and 50 UNITS SUBCUTANEOUSLY IN THE EVENING 3 ml insulin lispro 100 unt/ml pen injector (20 sources) Insulin Analog Start: 09-21-2024 End: 12-23-2024 Insulin Lispro 100 unit/mL insulin pen Active 0 sliding scale dose SUBCUT Use as Directed Protocol: *If the corrective scale dose has been administered within the past 4 hours, do not use corrective scale again unless approved by prescriber* Condition: Fingerstick Blood Glucose Dose/Route: Insulin Units Condition: Dose/Route: 8 unit Condition: 151-175mg/dl Dose/Route: 16 units Condition: 176-200mg/dl Dose/Route: 20 units Condition: 201-225mg/dl Dose/Route: 28 units Condition: 226-250mg/dl Dose/Route: 34 units Condition: 251-275mg/dl Dose/Route: 38 units Condition: 276-300mg/dl Dose/Route: 44 units Condition: > 300mg/dl Dose/Route: 48 units Condition: Greater than or = 400 mg/dl Instructions: Call Provider December 23, 2024 2:47pm Please contact the information source for Protocol details. Complies with drug therapy Start: 06-10-2024 End: 09-21-2024 Insulin Lispro 100 unit/mL insulin pen Discontinued 0 .ROUTE .COMPLEX September 21, 2024 9:10pm September 21, 2024 9:19pm INJECT THREE TIMES DAILY BEFORE MEALS according to sliding scale (if BLOOD SUGAR is INJECT 24 UNITS, if BETWEEN 226-250 INJECT 30 UNITS, then BETWEEN 251-275 INJECT 34 UNITS, if BETWEEN 276-300 INJECT 36 UNITS, if > 300 INJECT 38 UNITS) FOR 30 DAYS Start: 02-24-2024 0-4 Units, Sub CUTAneous, NIGHTLY, First dose on Thu02/24/24 at 2100, Until Discontinued, If continuous tube feedings/TPN/NPO, give correction dose based on result, no reduction in dose. If eating or bolus tube feeding: Corrective Bedtime Algorithm Glucose: Dose: 70-299 No Insulin 300-349 4 Units Over 349 4 Units and notify physician Start: 02-24-2024 0-4 Units, Sub CUTAneous, 3 TIMES DAILY WITH MEALS, First dose on Thu02/24/24 at 1700, Until Discontinued, Corrective Low Dose Algorithm Glucose: Dose: 70-199 No Insulin 200-249 1 Unit 250-299 2 Units 300-349 3 Units Over 349 4 Units and notify physician Start: 11-25-2023 End: 06-10-2024 Insulin Lispro (Humalog Kwik pen Insulin) 100 unit/mL insulin pen Discontinued 1 sliding scale dose SUBCUT 3x/Day before meals November 25, 2023 4:18pm June 10, 2024 3:07pm 151-175 - 16u 176-200 - 20u 201-225 - 24u 226-250 - 30u 251-275 - 34u 276-300 - 36u > 300 - 38u Start: 11-16-2023 End: 11-25-2023 Insulin Lispro (Humalog Kwik pen Insulin) 100 unit/mL insulin pen Discontinued 1 sliding scale dose SUBCUT November 16, 2023 6:13pm November 25, 2023 4:18pm 151-175 - 16u 176-200 - 20u 201-225 - 24u 226-250 - 30u 251-275 - 34u 276-300 - 36u > 300 - 38u Start: 08-11-2023 End: 11-16-2023 inject 100 [IU] by subcutaneous injection at mealtime Insulin Lispro (Humalog Kwikpen Insulin) 100 unit/mL insulin pen Discontinued SUBCUT August 11, 2023 12:00am November 16, 2023 10:33am FreeTextSi-15 units Subcutaneous before each meal; Note: Source Status: Continue; Provider: Yarely Lehman Start: 05-23-2022 inject 10 [IU] by valerio bcutaneous injection at mealtime HumaLOG KwikPen 100 UNIT/ML 10 units Subcutaneous before each meal Apr, Active Start: 05-23-2022 inject 100 [IU] by s ubcutaneous injection at mealtime HumaLOG KwikPen 100 UNIT/ML 10-15 units Subcutaneous before each meal Apr, Active Start: 05-27-2021 0-3 Units, Sub CUTAneous, NIGHTLY, First dose on Thu05/27/21 at 2100 If continuous tube feedings/TPN/NPO, give correction dose based on result, no reduction in dose. If eating or bolus tube feeding: Low Dose Bedtime Correction Algorithm Glucose: Dose: 70-139 &nbs p; & nbsp; No Insulin 140-249 1 Unit 250-349 2 Units 350 and above 3 Units Start: 05-27-2021 0-6 Units, Sub CUTAneous, 3 TIMES DAILY WITH MEALS, First dose on Thu05/27/21 at 1700 Low Dose Correction Algorithm Glucose: Dose: 70-139 No Insulin 140-199 1 Unit 200-249 2 Units 250-299 3 Units 300-349 4 Units 350-399 5 Units 400 and above 6 Units Start: 05-20-2021 HUMALOG KWIKPE N 100 UNIT/ML SOPN 3 times daily (before meals) SSIC 100-150 6 units 151-200 16 units 201-250 20 units 251-300 24 units 05/20/2021 Active Insulin Lispro 100 unit/mL insulin pen (6 sources) Start: 09-21-2024 Insulin Lispro 100 unit/mL insulin pen Active 0 .ROUTE .COMPLEX September 21, 2024 3:25pm INJECT THREE TIMES DAILY BEFORE MEALS according to sliding scale (if BLOOD SUGAR is INJECT 24 UNITS, if BETWEEN 226-250 INJECT 30 UNITS, then BETWEEN 251-275 INJECT 34 UNITS, if BETWEEN 276-300 INJECT 36 UNITS, if > 300 INJECT 38 UNITS) FOR 30 DAYS Start: 07-19-2024 End: 09-21-2024 Insulin Lispro 100 unit/mL i nsulin pen Discontinued 0 .ROUTE .COMPLEX July 19, 2024 1:55pm September 21, 2024 3:32pm INJECT THREE TIMES DAILY BEFORE MEALS according to sliding scale (if BLOOD SUGAR is INJECT 24 UNITS, if BETWEEN 226-250 INJECT 30 UNITS, then BETWEEN 251-275 INJECT 34 UNITS, if BETWEEN 276-300 INJECT 36 UNITS, if > 300 INJECT 38 UNITS) FOR 30 DAYS Start: 06-15-2024 End: 07-19-2024 Insulin Lispro 100 unit/mL i nsulin pen Discontinued 0 .ROUTE .COMPLEX June 15, 2024 10:05am July 19, 2024 1:55pm INJECT THREE TIMES DAILY BEFORE MEALS according to sliding scale (if BLOOD SUGAR is INJECT 24 UNITS, if BETWEEN 226-250 INJECT 30 UNITS, then BETWEEN 251-275 INJECT 34 UNITS, if BETWEEN 276-300 INJECT 36 UNITS, if > 300 INJECT 38 UNITS) FOR 30 DAYS Start: 06-15-2024 Insulin Lispro 100 unit/mL insulin pen Active 0 .ROUTE .COMPLEX June 15, 2024 9:05am INJECT THREE TIMES DAILY BEFORE MEALS according to sliding scale (if BLOOD SUGAR is INJECT 24 UNITS, if BETWEEN 226-250 INJECT 30 UNITS, then BETWEEN 251-275 INJECT 34 UNITS, if BETWEEN 276-300 INJECT 36 UNITS, if > 300 INJECT 38 UNITS) FOR 30 DAYS Start: 06-10-2024 End: 06-15-2024 Insulin Lispro 100 unit/mL i nsulin pen Discontinued 0 .ROUTE .COMPLEX June 10, 2024 3:07pm June 15, 2024 10:06am INJECT THREE TIMES DAILY BEFORE MEALS according to sliding scale (if BLOOD SUGAR is INJECT 24 UNITS, if BETWEEN 226-250 INJECT 30 UNITS, then BETWEEN 251-275 INJECT 34 UNITS, if BETWEEN 276-300 INJECT 36 UNITS, if > 300 INJECT 38 UNITS) FOR 30 DAYS Start: 06-10-2024 End: 06-15-2024 Insulin Lispro 100 unit/mL i nsulin pen Discontinued 0 .ROUTE .COMPLEX June 10, 2024 2:07pm June 15, 2024 9:06am INJECT THREE TIMES DAILY BEFORE MEALS according to sliding scale (if BLOOD SUGAR is INJECT 24 UNITS, if BETWEEN 226-250 INJECT 30 UNITS, then BETWEEN 251-275 INJECT 34 UNITS, if BETWEEN 276-300 INJECT 36 UNITS, if > 300 INJECT 38 UNITS) FOR 30 DAYS 24 hr isosorbide mononitrate 30 mg extended release oral tablet (20 sources) Nitrate Vasodilator Start: 05-29-2021 take 1 tablet by mouth once daily isosorbide mononitrate (IMDUR) 30 MG extended release tablet Take 1 tablet by mouth daily 30 tablet 3 06/01/2021 Active lisinopril 40 mg oral tablet (2 sources) Angiotensin Converting Enzyme Inhibitor take 1 tablet by mouth once daily lisinopril (PRINIVIL;ZESTRIL) 40 MG tablet Take 40 mg by mouth daily 0 Active losartan potassium 25 mg oral tablet (20 sources) Angiotensin 2 Receptor Jayde Start: 07-01-2024 End: 09-21-2024 take 1 tablet by mouth once daily Losartan 100 mg tablet Discontinued 100 MG PO Daily July 12, 2024 1:00am August 29, 2024 4:06pm Start: 07-03-2023 take 1 tablet by mp th once daily losartan (COZAAR) 100 MG tablet Take 1 tablet by mouth daily 0 07/03/2023 Active Start: 08-15-2021 take 1 tablet by mp th once daily losartan (COZAAR) 100 MG tablet Take 1 tablet by mouth daily 90 tablet 3 08/15/2021 Active Start: 07-27-2020 take 1 tablet by mp th once daily losartan (COZAAR) 25 MG tablet Take 1 tablet by mouth daily 07/29/2024 Active magnesium oxide 500 mg oral capsule (20 sources) Start: 12-23-2024 take 1 capsule by mouth once daily Magnesium Oxide 500 mg capsule Active 500 MG PO Daily December 23, 2024 12:00am Complies with drug therapy Start: 02-24-2024 take 400 mg by mouth once daily 400 mg, Oral, DAILY, First dose on Thu02/24/24 at 1545, Until Discontinued take 500 mg by mouth once daily MAGNESIUM OXIDE PO Take 500 mg by mouth daily Active mecobalamin 1 mg sublingual tablet (1 source) Start: 12-23-2024 Mecobalamin (V itamin B12) 1,000 mcg tablet,disintegrating Active 1000 MCG SUBLINGUAL Daily December 23, 2024 12:00am place tablet under tongue and allow to dissolve for at least30 secs before swallowing Complies with drug therapy meropenem (MERREM) 1,000 mg in sodium chloride 0.9 % 100 mL IVPB ([id number]) (1 source) Start: 02-24-2024 End: 03-02-2024 1,000 mg, IntraVENous, at 33 .3 mL/hr, Administer over 180 Minutes, EVERY 8 HOURS, First dose on Thu02/24/24 at 1600, For 7 days MULTIPLE VITAMINS ESSENTIAL PO (13 sources) MULTIPLE VITAMIN S ESSENTIAL PO Take by mouth. Active Multiple Vitamins-Minerals (QC MENS DAILY MULTIVITAMIN PO) (20 sources) Multiple Vitamin s-Minerals (QC MENS DAILY MULTIVITAMIN PO) Take by mouth daily Active Multiple Vitamin s-Minerals (QC MENS DAILY MULTIVITAMIN PO) Take by mouth daily 0 Suspended Multiple Vitamin s-Minerals (QC MENS DAILY MULTIVITAMIN PO) Take by mouth daily 0 Active nitrofurantoin, macrocrystals 25 mg / nitrofurantoin, monohydrate 75 mg oral capsule (8 sources) Nitrofuran Antibacterial Start: 10-21-2022 take 1 capsule by mouth every twelve hours at mealtime nitrofurantoin, macrocrystal-monohydrate, (MACROBID) 100 MG capsule TAKE ONE CAPSULE BY MOUTH EVERY 12 HOURS WITH FOOD 0 10/21/2022 Active Start: 05-15-2022 End: 05-25-2022 take 1 capsule by mouth twice daily nitrofurantoin, macrocrystal-monohydrate , (MACROBID) 100 MG capsule Take 1 capsule by mouth 2 times daily for 10 days 20 capsule 0 05/15/2022 05/25/2022 Active nitroglycerin 0.4 mg sublingual tablet (20 sources) Nitrate Vasodilator Start: 02-27-2024 nitroGLYCE RIN (NITROSTAT) 0.4 MG SL tablet up to max of 3 total doses. If no relief after 1 dose, call 911. 25 tablet 3 02/27/2024 Active Start: 05-31-2021 End: 02-24-2024 nitroGLYCERIN (NITROSTAT) 0. 4 MG SL tablet up to max of 3 total doses. If no relief after 1 dose, call 911. 25 tablet 3 05/31/2021 02/24/2024 Discontinued (LIST CLEANUP) Start: 05-29-2021 nitroGLYCERIN (NITROSTAT) SL tablet 0.4 mg nitroglycerin (N itrostat) 0.4 MG SL tablet as directed Sublingual Active ondansetron (ZOFRAN-ODT) disintegrating tablet 4 mg (2 sources) Start: 02-24-2024 ondansetron (Z OFRAN-ODT) disintegrating tablet 4 mg Start: 05-27-2021 ondansetron (Z OFRAN-ODT) disintegrating tablet 4 mg 24 hr oxybutynin chloride 10 mg extended release oral tablet (2 sources) Cholinergic Muscarinic Antagonist Start: 12-22-2022 take 1 tablet by mouth once daily oxybutynin (DITROPAN XL) 10 MG extended release tablet Take 1 tablet by mouth daily 30 tablet 3 12/22/2022 Active pantoprazole 40 mg delayed release oral tablet (20 sources) Proton Pump Inhibitor Start: 12-23-2024 Pantoprazole 40 mg tablet,delayed release (DR/EC) Active 40 MG PO Daily December 23, 2024 12:00am Take on an empty stomach, 30 minutes prior to bkfst Complies with drug therapy Start: 05-12-2024 End: 07-12-2024 take 1 tablet by mouth in the morning Pantoprazole 40 mg tablet,delayed release (DR/EC) Discontinued 40 MG PO Daily May 12, 2024 1:23pm July 12, 2024 4:10pm take on empty stomach in morning, 30 minutes prior to bkfst Start: 12-07-2023 End: 05-12-2024 take 1 tablet by mouth once daily Pantoprazole 40 mg tablet,delayed release (DR/EC) Discontinued 40 MG PO Daily December 07, 2023 12:00am May 12, 2024 1:25pm polyethylene glycol [id number] [id number] mg powder for oral solution (20 sources) Osmotic Laxative Start: 05-06-2023 End: 09-21-2024 polyethylene glycol (GLYCOLAX) 17 GM/SCOOP powder Indications: Constipation, unspecified constipation type Take 17 g by mouth daily 850 g 7 05/06/2023 Active Start: 05-27-2021 End: 04-17-2022 polyethylene glycol (GLYCOLA X) 17 GM/SCOOP powder Take 17 g by mouth daily 1530 g 3 03/18/2022 04/17/2022 Active polyethylene gly col (GLYCOLAX) 17 GM/SCOOP powder Take 17 g by mouth every other day 0 Active microencapsulated potassium chloride 20 meq extended release oral tablet (20 sources) Start: 06-07-2024 take 1 tablet by mouth once daily potassium chloride (KLOR-CON M) 20 MEQ extended release tablet Take 1 tablet by mouth daily 06/07/2024 Active Start: 02-24-2024 20 mEq, Oral, 2 TIMES DAILY WITH MEALS, First dose on Thu02/24/24 at 1700, Until Discontinued, Do not crush, chew, or suck on tablet. Tablet may also be broken in half and each half swallowed separately. Start: 02-24-2024 potassium chlo ride (KLOR-CON M) extended release tablet 40 mEq Start: 02-24-2024 End: 02-24-2024 40 mEq, Oral, ONCE, 1 dose, On Thu02/24/24 at 1400, Do not crush or break. Do not crush, chew, or suck on tablet. Tablet may also be broken in half and each half swallowed separately. Start: 05-29-2021 End: 05-29-2021 potassium chloride (KLOR-CON M) extended release tablet 40 mEq take 20 mEq by mouth in the morning potassium chloride (Klor-Con) 20 MEQ packet Take 20 mEq by mouth in the morning and 20 mEq before bedtime. Active pravastatin sodium 40 mg oral tablet (20 sources) HMG-CoA Reductase Inhibitor Start: 07-12-2024 End: 09-21-2024 take 4 tablets by mouth once daily Pravastatin 10 mg tablet Discontinued 40 MG PO Daily July 12, 2024 4:10pm September 21, 2024 2:43pm Start: 06-17-2024 take 1 tablet by mp th once daily pravastatin (PRAVACHOL) 40 MG tablet Indications: Dyslipidemia Take 1 tablet by mouth daily 90 tablet 3 11/16/2024 Active Start: 02-24-2024 take 40 mg by mouth once daily 40 mg, Oral, DAILY, First dose on Thu02/24/24 at 1545, Until Discontinued Start: 08-11-2023 End: 07-12-2024 take 1 tablet by mouth once daily Pravastatin 10 mg tablet Discontinued 10 MG PO Daily August 11, 2023 12:00am July 12, 2024 4:11pm Start: 05-29-2023 take 1 tablet by mp th once daily pravastatin (PRAVACHOL) 40 MG tablet Take 1 tablet by mouth daily 90 tablet 3 05/29/2023 Active Start: 10-24-2022 pravastatin (P ravachol) 40 MG tablet Take 20 mg by mouth in the evening 10/24/2022 Active Start: 10-24-2022 take 1 tablet by mp th in the evening pravastatin (Pravachol) 20 MG tablet Take 20 mg by mouth in the evening. 10/24/2022 Active Start: 05-27-2021 take 10 mg by mouth once daily 10 mg, Oral, DAILY, First dose on 05/27/21 at 1645 take 1 tablet by mp every twenty-four hours Pravastatin Sodium 10 MG 1 tablet Orally Once a day Active [place]-Pumpkin Seed Oil 160 mg capsule (1 source) Start: 12-23-2024 [place]umpkin Seed Oil 160 mg capsule Active CAP PO December 23, 2024 12:00am Complies with drug therapy solifenacin succinate 5 mg oral tablet (6 sources) Cholinergic Muscarinic Antagonist Start: 08-02-2024 solifenacin (VESICARE) 5 MG tablet Take by mouth 08/02/2024 Active spironolactone 50 mg oral tablet (20 sources) Aldosterone Antagonist Start: 05-13-2024 End: 09-10-2024 take 1 tablet by mouth once daily Spironolactone 50 mg tablet Active 50 MG PO Daily May 20, 2024 1:00am Complies with drug therapy sulfamethoxazole 800 mg / trimethoprim 160 mg oral tablet (4 sources) Dihydrofolate Reductase Inhibitor Antibacterial, Sulfonamide Antimicrobial Start: 08-23-2024 End: 09-02-2024 take 1 tablet by mouth twice daily sulfamethoxazole-tri methoprim (BACTRIM DS;SEPTRA DS) 800-160 MG per tablet Indications: Infection due to Enterobacter cloacae Take 1 tablet by mouth 2 times daily for 10 days 20 tablet 08/23/2024 09/02/2024 Active Start: 03-20-2022 End: 03-27-2022 take 1 tablet by mouth twice daily sulfamethoxazole-trimethoprim (BACTRIM;SEPTRA) 400-80 MG per tablet Take 1 tablet by mouth 2 times daily for 7 days 14 tablet 0 03/20/2022 03/27/2022 Active thioctic acid 200 mg oral capsule (20 sources) take 1 capsule by mo [facility] once daily Alpha-Lipoic Acid 200 MG CAPS Take 1 capsule by mouth daily Active Alpha-Lipoic Aci d 600 MG capsule Take by mouth. Active traMADol hydrochloride 50 mg oral tablet (20 sources) Opioid Agonist Start: 07-12-2024 End: 09-21-2024 take 1 tablet by mouth every eight hours as needed for pain traMADol (ULTRAM) 50 MG tablet Take 1 tablet by mouth every 8 hours as needed for Pain. 07/12/2024 Active Vitamin D3 25 MCG (1000 UT) (11 sources) take 1 capsule by mouth once daily Vitamin D3 25 MCG (1000 UT) TAKE ONE CAPSULE BY MOUTH DAILY for 30 Active Zinc (20 sources) zinc 50 MG table t 1 (one) time each day at the same time. Active take 1 tablet by mouth once jarett y ZINC PO Take 1 tablet by mouth daily 0 Active ZINC PO Take by mouth daily 0 Suspended ZINC PO Take by mouth daily 0 Active ZINC PO Take by mouth 0 Active Completed/Discontinued Medications Medication Drug Class(es) Dates Sig (Normalized) Sig (Original) acetaminophen 325 mg oral tablet (6 sources) Start: 07-22-2024 End: 07-22-2024 take 4000 mg by mouth every twenty-four hours 650 mg, Oral, ONCE, 1 dose, On Thu07/22/24 at 1745, Maximum dose of acetaminophen is 4000 mg from all sources in 24 hours. Start: 02-24-2024 acetaminophen (TYLENOL) tablet 650 mg Start: 12-21-2023 acetaminophen (TYLENOL) tablet 650 mg Start: 11-03-2023 End: 11-03-2023 acetaminophen (TYLENOL) tabl et 650 mg Start: 07-15-2022 End: 07-15-2022 acetaminophen (TYLENOL) tabl et 650 mg Start: 05-27-2021 acetaminophen (TYLENOL) tablet 650 mg ascorbic acid 500 mg chewable tablet (20 sources) Vitamin C Start: 02-24-2024 take 1000 mg by mouth once daily 1,000 mg, Oral, DAILY, First dose on Thu02/24/24 at 1545, Until Discontinued Start: 06-12-2021 End: 09-27-2021 take 2 tablets by mouth four times daily ascorbic acid (VITAMIN C) 1000 MG tablet Take 2 tablets by mouth 4 times daily for 15 days 30 tablet 3 06/12/2021 09/27/2021 Discontinued (LIST CLEANUP) take 1 tablet by mp th once daily ascorbic acid (VITAMIN C) 1000 MG tablet Take 1 tablet by mouth daily Active Blood-Glucose Meter,Continuo us (Dexcom G7 Spent Grain Dryer) misc (2 sources) Start: 08-29-2023 End: 05-12-2024 Blood-Glucose Meter,Continuo us (Dexcom G7 Spent Grain Dryer) misc Discontinued 0 .Route 1 August 28, 2023 11:00pm May 12, 2024 12:29pm Use to test home BS 4-6x daily Start: 08-29-2023 Blood-Glucose Meter,Continuous (Dexcom G7 Spent Grain Dryer) misc Active 0 .Route 1 August 29, 2023 12:00am Use to test home BS 4-6x daily Blood-Glucose Sensor (Dexcom G7 Sensor) device (4 sources) Start: 08-29-2023 End: 05-12-2024 Blood-Glucose Sensor (Dexcom G7 Sensor) device Discontinued 0 .Route August 29, 2023 12:00am May 12, 2024 1:29pm Use to test home BS 4-6x daily Start: 08-29-2023 End: 05-12-2024 Blood-Glucose Sensor (Dexcom G7 Sensor) device Discontinued 0 .Route August 28, 2023 11:00pm May 12, 2024 12:29pm Use to test home BS 4-6x daily Start: 08-29-2023 Blood-Glucose Sensor (Dexcom G7 Sensor) device Active 0 .Route August 29, 2023 12:00am Use to test home BS 4-6x daily Blood-Glucose,Spent Grain Dryer,Cont (Dexcom G7 Spent Grain Dryer) misc (2 sources) Start: 08-29-2023 End: 05-12-2024 Blood-Glucose,Spent Grain Dryer,Cont (Dexcom G7 Spent Grain Dryer) misc Discontinued 0 .Route August 29, 2023 12:00am May 12, 2024 1:29pm Use to test home BS 4-6x daily calcitriol 0.0005 mg oral capsule (20 sources) Vitamin D3 Analog Start: 07-29-2024 End: 11-11-2024 take 1 capsule by mouth once daily Calcitriol 0.5 mcg capsule Discontinued 0.5 MCG PO Daily 90 90 August 29, 2024 12:00am September 21, 2024 2:44pm Start: 07-03-2023 End: 10-31-2023 take 1 capsule by mouth three times weekly calcitRIOL (ROCALTROL) 0.25 MCG capsule Take 1 capsule by mouth three times a week [facility] 07/03/2023 Active ceFAZolin 2000 mg injection (1 source) Cephalosporin Antibacterial Start: 07-15-2022 End: 07-15-2022 ceFAZolin (ANCEF) 2000 mg in 0.9% sodium chloride 100 mL IVPB cholecalciferol 0.025 mg oral capsule (20 sources) Vitamin D take 1 capsule by mouth once daily as needed Vitamin D3 25 MCG (1000 UT) TAKE ONE CAPSULE BY MOUTH DAILY for 30 Not-Taking/PRN take 1 capsule by mouth once pres[place] Cholecalciferol (VITAMIN D3) 1.25 MG (07368 UT) CAPS Take 1 capsule by mouth daily 0 Active take 1 capsule by mouth in the m orning Cholecalciferol (VITAMIN D3) 1.25 MG (43834 UT) CAPS Take 1 capsule by mouth in the morning. 0 Active take 1 capsule by mo uth every week, then take 1 capsule by mouth once Cholecalciferol (VITAMIN D3) 1.25 MG (50 000 UT) CAPS Take 1 capsule by mouth once a week Take 1 every Thursday. 0 Active cinacalcet 60 mg oral tablet (20 sources) Calcium-sensing Receptor Agonist Start: 08-12-2023 End: 11-11-2024 take 1 tablet by mouth once daily Cinacalcet (Sensipar) 60 mg tablet Discontinued 30 MG PO Daily August 12, 2023 3:38pm May 20, 2024 5:33pm take 1 tablet by mouth once jarett y cinacalcet (SENSIPAR) 30 MG tablet Take 1 tablet by mouth See Admin Instructions 07/01/24 Decrease to 30 mg daily Thursday thru Thursday - per nephrology Active take 2 tablets by mouth once presley ly cinacalcet (SENSIPAR) 30 MG tablet Take 2 tablets by mouth daily Active diclofenac sodium 20 mg/ml topical solution (20 sources) Nonsteroidal Anti-inflammatory Drug Start: 04-13-2020 Pennsaid 2 % 2 pu mps Transdermal Twice a day for 30 day(s) Mar, Not-Taking/PRN Start: 04-13-2020 Pennsaid 2 % 2 pumps Transdermal Twice a day for 30 day(s) Mar, Not-Taking dimenhyDRINATE 50 mg oral ta blet (2 sources) Start: 11-03-2023 End: 11-03-2023 dimenhyDRINATE (DRAMAMINE) tablet 50 mg Start: 07-15-2022 End: 07-15-2022 dimenhyDRINATE (DRAMAMINE) t ablet 50 mg docusate sodium 100 mg oral capsule (20 sources) Start: 09-16-2021 End: 09-27-2021 take 1 capsule by mouth once daily docusate sodium (COLACE) 100 MG capsule Take 1 capsule by mouth daily 90 capsule 3 09/16/2021 09/27/2021 Discontinued (LIST CLEANUP) doxycycline hyclate 100 mg oral capsule (20 sources) Tetracycline -class Drug Start: 02-11-2023 End: 02-03-2024 take 1 capsule by mouth once daily Doxycycline Hyclate 100 mg capsule Discontinued 100 MG PO Daily 03 03December 15, 2023 1:12pm February 03, 2024 11:44am Start: 02-11-2023 End: 05-12-2024 take 1 capsule by mouth twice daily Doxycycline Hyclate 100 mg capsule Discontinued 100 MG PO Twice daily February 03, 2024 12:00am May 12, 2024 1:39pm 0.3 ml enoxaparin sodium 100 mg/ml prefilled syringe (2 sources) Low Molecular Weight Heparin Start: 02-24-2024 inject 30 mg by subcutaneous injection twice daily 30 mg, SubCUTAneous, 2 TIMES DAILY, First dose (after last reorder) on Thu02/24/24 at 2100, Until Discontinued, Indication of Use: Prophylaxis-DVT/PE, Administer by deep subCUTAneous injection with pt lying down. Alternate injection sites on abdominal wall. Do not rub site after injection. Check with provider prior to any invasive procedure. Start: 05-27-2021 inject 40 mg by subc utaneous injection once daily 40 mg, SubCUTAneous, DAILY, First dose on Thu05/27/21 at 1645 2 ml fentaNYL 0.05 mg/ml injection (1 source) Opioid Agonist Start: 07-22-2024 End: 07-22-2024 take 1 dose by mouth every hour 25 mcg, IntraVENous, ONCE, 1 dose, On Thu07/22/24 at 2245, If oral and IV narcotics ordered, use oral first and only use IV if oral is ineffective or cannot take oral. Do Not give oral and IV within 1 hour of each other unless specifically ordered. gabapentin 100 mg oral capsule (1 source) Anti-epileptic Agent Start: 07-15-2022 End: 07-15-2022 gabapentin (NEURONTIN) capsule 100 mg hydroCHLOROthiazide 12.5 mg / losartan potassium 50 mg oral tablet (20 sources) Thiazide Diuretic, Angiotensin 2 Receptor Jayde Start: 08-11-2023 End: 06-01-2024 take 1 tablet by mouth once daily Losartan-Hydrochl orothiazide 50-12.5 mg tablet Discontinued 1 TAB PO Daily August 11, 2023 12:00am June 01, 2024 10:56am Start: 01-06-2023 take 1 tablet by mp th every twenty-four hours Losartan Potassium-HCTZ 50-12.5 MG 1 tablet Orally Once a day Dec, Active Insulin Glargine U-300 Conc 300 unit/mL (1.5 mL) insulin pen (8 sources) Start: 10-13-2023 End: 02-23-2024 inject 20 [IU] by subcutaneous injection once daily in the morning, then inject 40 [IU] by subcutaneous injection once daily in the evening Insulin Glargine U-300 Conc 300 unit/mL (1.5 mL) insulin pen Discontinued 0 SUBCUT Daily 4.5 October 13, 2023 12:55pm February 23, 2024 8:51pm 20 units in am and 40 units in pm subcutaneously daily Start: 10-13-2023 End: 02-23-2024 inject 20 [IU] by subcutaneous injection once daily in the morning, then inject 40 [IU] by subcutaneous injection once daily in the evening Insulin Glargine U-300 Conc 300 unit/mL (1.5 mL) insulin pen Discontinued 0 SUBCUT Daily 4.5 October 13, 2023 11:55am February 23, 2024 7:51pm 20 units in am and 40 units in pm subcutaneously daily Start: 09-14-2023 End: 10-13-2023 inject 20 [IU] by subcutaneous injection once daily in the morning, then inject 40 [IU] by subcutaneous injection twice daily in the evening Insulin Glargine U-300 Conc 300 unit/mL (1.5 mL) insulin pen Discontinued 0 SUBCUT Daily 4.5 September 14, 2023 12:38pm October 13, 2023 12:56pm 20 units in am and 40 units in pm subcutaneously twice daily Start: 09-14-2023 End: 10-13-2023 inject 20 [IU] by subcutaneous injection once daily in the morning, then inject 40 [IU] by subcutaneous injection twice daily in the evening Insulin Glargine U-300 Conc 300 unit/mL (1.5 mL) insulin pen Discontinued 0 SUBCUT Daily 4.5 30 September 14, 2023 11:38am October 13, 2023 11:56am 20 units in am and 40 units in pm subcutaneously twice daily Start: 09-14-2023 End: 09-14-2023 inject 20 [IU] by subcutaneous injection once daily in the morning, then inject 40 [IU] by subcutaneous injection twice daily in the evening Insulin Glargine U-300 Conc 300 unit/mL (1.5 mL) insulin pen Discontinued 0 SUBCUT Daily September 14, 2023 12:36pm September 14, 2023 12:39pm 20 units in am and 40 units in pm subcutaneously twice daily Start: 09-14-2023 End: 09-14-2023 inject 20 [IU] by subcutaneous injection once daily in the morning, then inject 40 [IU] by subcutaneous injection twice daily in the evening Insulin Glargine U-300 Conc 300 unit/mL (1.5 mL) insulin pen Discontinued 0 SUBCUT Daily September 14, 2023 11:36am September 14, 2023 11:39am 20 units in am and 40 units in pm subcutaneously twice daily Start: 08-11-2023 End: 09-14-2023 inject 1 [IU] by subcutaneous injection once daily in the morning Insulin Glargine U-300 Conc 300 unit/mL (1.5 mL) insulin pen Discontinued UNIT SUBCUT August 11, 2023 12:00am September 14, 2023 12:37pm FreeTextSiu am and 40u pm Subcutaneous daily; Note: Source Status: Continue; Provider: Yarely Lehman Start: 08-11-2023 End: 09-14-2023 inject 1 [IU] by subcutaneous injection once daily in the morning Insulin Glargine U-300 Conc 300 unit/mL (1.5 mL) insulin pen Discontinued UNIT SUBCUT August 10, 2023 11:00pm September 14, 2023 11:37am FreeTextSiu am and 40u pm Subcutaneous daily; Note: Source Status: Continue; Provider: Yarely Lehman Insulin Lispro (Humalog Kwikpen Insulin) 100 unit/mL insulin pen (13 sources) Start: 11-25-2023 End: 06-10-2024 Insulin Lispro (Humalog Kwik pen Insulin) 100 unit/mL insulin pen Discontinued 1 sliding scale dose SUBCUT 3x/Day before meals November 25, 2023 4:18pm June 10, 2024 3:07pm 151-175 - 16u 176-200 - 20u 201-225 - 24u 226-250 - 30u 251-275 - 34u 276-300 - 36u > 300 - 38u Start: 11-25-2023 End: 06-10-2024 Insulin Lispro (Humalog Kwik pen Insulin) 100 unit/mL insulin pen Discontinued 1 sliding scale dose SUBCUT 3x/Day before meals November 25, 2023 3:18pm June 10, 2024 2:07pm 151-175 - 16u 176-200 - 20u 201-225 - 24u 226-250 - 30u 251-275 - 34u 276-300 - 36u > 300 - 38u Start: 11-25-2023 Insulin Lispro (Humalog Kwikpen Insulin) 100 unit/mL insulin pen Active 1 sliding scale dose SUBCUT 3x/Day before meals November 25, 2023 4:18pm 151-175 - 16u 176-200 - 20u 201-225 - 24u 226-250 - 30u 251-275 - 34u 276-300 - 36u > 300 - 38u Start: 11-16-2023 End: 11-25-2023 Insulin Lispro (Humalog Kwik pen Insulin) 100 unit/mL insulin pen Discontinued 1 sliding scale dose SUBCUT November 16, 2023 5:13pm November 25, 2023 3:18pm 151-175 - 16u 176-200 - 20u 201-225 - 24u 226-250 - 30u 251-275 - 34u 276-300 - 36u > 300 - 38u Start: 11-16-2023 End: 11-25-2023 Insulin Lispro (Humalog Kwik pen Insulin) 100 unit/mL insulin pen Discontinued 1 sliding scale dose SUBCUT November 16, 2023 6:13pm November 25, 2023 4:18pm 151-175 - 16u 176-200 - 20u 201-225 - 24u 226-250 - 30u 251-275 - 34u 276-300 - 36u > 300 - 38u Start: 11-16-2023 End: 11-16-2023 Insulin Lispro (Humalog Kwik pen Insulin) 100 unit/mL insulin pen Discontinued 1 sliding scale dose SUBCUT November 16, 2023 9:33am November 16, 2023 5:20pm 151-175 - 14u 176-200 - 18u 201-225 - 22u 226-250 - 26u 251-275 - 30u 276-300 - 34u > 300 - 38u Start: 11-16-2023 End: 11-16-2023 Insulin Lispro (Humalog Kwik pen Insulin) 100 unit/mL insulin pen Discontinued 1 sliding scale dose SUBCUT November 16, 2023 10:33am November 16, 2023 6:20pm 151-175 - 14u 176-200 - 18u 201-225 - 22u 226-250 - 26u 251-275 - 30u 276-300 - 34u > 300 - 38u Start: 08-11-2023 End: 11-16-2023 inject 100 [IU] by subcutaneous injection at mealtime Insulin Lispro (Humalog Kwikpen Insulin) 100 unit/mL insulin pen Discontinued SUBCUT August 10, 2023 11:00pm November 16, 2023 9:33am FreeTextSi-15 units Subcutaneous before each meal; Note: Source Status: Continue; Provider: Yarely Lehman Start: 08-11-2023 End: 11-16-2023 inject 100 [IU] by subcutaneous injection at mealtime Insulin Lispro (Humalog Kwikpen Insulin) 100 unit/mL insulin pen Discontinued SUBCUT August 11, 2023 12:00am November 16, 2023 10:33am FreeTextSi-15 units Subcutaneous before each meal; Note: Source Status: Continue; Provider: Yarely Lehman Start: 08-11-2023 inject 100 [IU] by s ubcutaneous injection at mealtime Insulin Lispro (Humalog Kwikpen Insulin) 100 unit/mL insulin pen Active SUBCUT August 11, 2023 12:00am FreeTextSi-15 units Subcutaneous before each meal; Note: Source Status: Continue; Provider: Yarely Lehman iopamidol (ISOVUE-370) 76 % injection 65 mL (1 source) Start: 05-29-2021 End: 05-29-2021 iopamidol (ISOVUE-370) 76 % injection 65 mL meclizine hydrochloride 25 mg oral tablet (20 sources) Antiemetic Start: 08-05-2024 End: 09-21-2024 Meclizine 25 mg tablet Discontinued 12.5 MG PO Daily August 05, 2024 12:00am September 21, 2024 2:44pm take 1 tablet by mp th three times daily as needed meclizine (ANTIVERT) 25 MG tablet Take 1 tablet by mouth 3 times daily as needed Active 24 hr metFORMIN hydrochloride 500 mg extended release oral tablet (18 sources) Biguanide take 2 tablets by mouth twice daily as needed metFORMIN HCl ER 500 MG 2 tabs Orally BID for 90 days Patient will need to call provider and make an appointment for further refills. Not-Taking/PRN take 1 tablet by mouth twice presley ly metFORMIN (GLUCOPHAGE-XR) 500 MG extended release tablet Take 500 mg by mouth 2 times daily 0 Active metOLazone 2.5 mg oral tablet (20 sources) Thiazide-like Diuretic Start: 02-10-2024 End: 06-01-2024 take 1 tablet by mouth once daily Metolazone 2.5 mg tablet Discontinued 2.5 MG PO Daily May 12, 2024 1:00am June 01, 2024 10:55am Start: 02-10-2024 take 1 tablet by mp th three times weekly metOLazone (ZAROXOLYN) 2.5 MG tablet Indications: Acute on chronic combined systolic and diastolic congestive heart failure (HCC) Take 1 tablet by mouth three times a week 36 tablet 1 02/10/2024 Active metoprolol tartrate 50 mg oral tablet (19 sources) beta-Adrenergic Jayde End: 05-27-2021 take 1 tablet by mouth twice daily as needed, then take [id number] tablets by mouth twice daily as needed Metoprolol Tartrate 50 MG 1 tablet twice daily hold if heartrate less than 60 or blood pressure is under 150/90 Orally Twice a day for 30 day(s) hold if heart rate under 60 or BP under 150/90 Not-Taking/PRN 2 ml midazolam 1 mg/ml injection (2 sources) Benzodiazepine Start: 07-23-2024 End: 07-23-2024 0.5 mg, IntraVENous, ONCE, 1 dose, On 3/1/25 at 0245 Start: 07-22-2024 End: 07-22-2024 1 mg, IntraVENous, ONCE, 1 d ose, On Thu07/22/24 at 2245 mupirocin 0.02 mg/mg topical ointment (20 sources) RNA Synthetase Inhibitor Antibacterial Start: 04-27-2024 End: 09-21-2024 Mupirocin 2 % ointment Discontinued 0 .ROUTE .COMPLEX April 27, 2024 9:34pm September 21, 2024 2:44pm APPLY ONE APPLICATION TWICE A DAY VIA TOPICAL ROUTE FOR 10 DAYS Start: 11-10-2023 mupirocin (ADAM TROBAN) 2 % ointment Apply topically daily Foot wounds 11/10/2023 Active Start: 11-10-2023 End: 04-27-2024 Mupirocin 2 % ointment Disco ntinued 1 APPLIC TOPICAL Twice daily 15 03February 08, 2024 1:51pm April 27, 2024 9:34pm NONFORMULARY (20 sources) End: 12-21-2023 NONFORMULARY Take 2 capsules by mouth Daily BP NatRelief 11 0 12/21/2023 Discontinued (Stop Taking at Discharge) NONFORMULARY Ethan e 2 capsules by mouth Daily BP NatRelief 11 0 Active take 1 capsule by mouth twice da paco NONFORMULARY Take 1 capsule by mouth 2 times daily BP NatRelief 11 0 Suspended take 1 capsule by mouth twice da paco NONFORMULARY Take 1 capsule by mouth 2 times daily BP NatRelief 11 0 Active 2 ml ondansetron 2 mg/ml injection (6 sources) Serotonin-3 Receptor Antagonist Start: 07-22-2024 End: 07-22-2024 4 mg, IntraVENous, ONCE, 1 dose, On Thu07/22/24 at 2115 Start: 02-27-2024 take 1 tablet by mp three times daily as needed for nausea ondansetron (ZOFRAN-ODT) 4 MG disintegrating tablet Take 1 tablet by mouth 3 times daily as needed for Nausea or Vomiting 21 tablet 02/27/2024 Active perflutren lipid microspheres (DEFINITY) injection 1.1 mg (1 source) Start: 05-28-2021 End: 05-28-2021 perflutren lipid microspheres (DEFINITY) injection 1.1 mg Polyethylene Glycol 3350 (Clearlax) 17 gram/dose powder (1 source) Start: 08-05-2024 End: 09-21-2024 Polyethylene Glycol 3350 (Clearlax) 17 gram/dose powder Discontinued 17 GM PO Daily August 05, 2024 12:00am September 21, 2024 2:44pm regadenoson (LEXISCAN) injection 0.4 mg (1 source) Start: 07-11-2022 End: 07-11-2022 regadenoson (LEXISCAN) injection 0.4 mg rosuvastatin calcium 20 mg oral tablet (7 sources) HMG-CoA Reductase Inhibitor take 1 tablet by mouth every twenty-four hours Rosuvastatin Calcium 20 MG 1 tablet Orally Once a day Not-Taking/PRN sacubitril 49 mg / valsartan 51 mg oral tablet (20 sources) Angiotensin 2 Receptor Jayde Start: 02-24-2024 take 0.5 tablet by mouth twice daily 0.5 tablet, Oral, 2 TIMES DAILY, First dose on Thu02/24/24 at 2100, Until Discontinued Start: 01-01-2024 End: 07-12-2024 take 49-51 mg by mouth once sacubitril-valsartan (ENTR ESTO) 49- 51 MG per tablet Indications: Chronic diastolic heart failure (HCC) Take 0.5 tablets by mouth 2 times daily 28 tablet 01/01/2024 07/12/2024 Discontinued (LIST CLEANUP) Start: 11-24-2023 take 37-37.9 tablets by mouth once sacubitril-valsartan (ENTRESTO) 24-26 MG per tablet Indications: Coronary artery disease involving [place] coronary artery of [place] heart without angina pectoris , S/P angioplasty with stent , Essential hypertension , Mixed hyperlipidemia , Intermittent claudication (HCC) , CHRIS on CPAP , Stage 3a chronic kidney disease (HCC) , Class 2 obesity with body mass index (BMI) of 37.0 to 37.9 in adult, unspecified obesity type, unspecified whether serious comorbidity present , Chest discomfort , SOB (shortness of breath) Take 1 tablet by mouth 2 times daily 60 tablet 3 11/24/2023 Active 5 ml sodium chloride 9 mg/ml injection (20 sources) Start: 11-11-2024 5-40 mL, Intra VENous, EVERY 12 HOURS SCHEDULED (2 times per day), First dose on Thu11/11/24 at 0900, Until Discontinued, For Line Patency: Peripheral IV = 5 mL; Midline or Central Line = 10 mL/lumen. If following IV push medication, administer flush at same rate as the IV push. Flush volume is determined by type of infusion therapy being given. For non-viscous solutions use: Peripheral IV = 5 mL Midline or Central Line = 10 mL/lumen For viscous solutions (i.e. blood components, parenteral nutrition, contrast media, or after obtaining blood sample) use: Peripheral IV = 10 mL Midline or Central Line = 20 mL/lumen, Pre-op (day of surgery) Start: 11-11-2024 IntraVENous, a t 5-250 mL/hr, PRN, if patient receiving piggyback infusions and maintenance fluids are not ordered, Starting on Thu11/11/24 at 0658, For piggyback infusion, administer at same rate as piggyback for a total of 25 mL. Enter 25 mL into dose field and piggyback rate into rate field of order. If piggyback is infusing at a rate less than 100 mL/hr, enter 25 mL into dose field and 100 mL/hr into rate field of order., Pre-op (day of surgery) Start: 11-11-2024 5-40 mL, Intra VENous, PRN, Starting on Thu11/11/24 at 0658, Until Discontinued, Line Care, After every IV line use, For Line Patency: Peripheral IV = 5 mL; Midline or Central Line = 10 mL/lumen. If following IV push medication, administer flush at same rate as the IV push. Flush volume is determined by type of infusion therapy being given. For non-viscous solutions use: Peripheral IV = 5 mL Midline or Central Line = 10 mL/lumen For viscous solutions (i.e. blood components, parenteral nutrition, contrast media, or after obtaining blood sample) use: Peripheral IV = 10 mL Midline or Central Line = 20 mL/lumen, Pre-op (day of surgery) Start: 07-22-2024 IntraVENous, a t 75 mL/hr, CONTINUOUS, Starting on Thu07/22/24 at 1830 Start: 07-22-2024 End: 07-22-2024 500 mL, IntraVENous, at 967. 7 mL/hr, Administer over 31 Minutes, ONCE, On Thu07/22/24 at 1530, For 1 dose, For adult patients weighing > 55 kg (120 lbs.) and less than Start: 02-24-2024 5-40 mL, Intra VENous, EVERY 12 HOURS SCHEDULED (2 times per day), First dose on Thu02/24/24 at 2100, Until Discontinued, For Line Patency: Peripheral IV = 5 mL; Midline or Central Line = 10 mL/lumen. If following IV push medication, administer flush at same rate as the IV push. Flush volume is determined by type of infusion therapy being given. For non-viscous solutions use: Peripheral IV = 5 mL Midline or Central Line = 10 mL/lumen For viscous solutions (i.e. blood components, parenteral nutrition, contrast media, or after obtaining blood sample) use: Peripheral IV = 10 mL Midline or Central Line = 20 mL/lumen Start: 02-24-2024 Start: 02-24-2024 5-40 mL, Intra VENous, PRN, Starting on Thu02/24/24 at 1527, Until Discontinued, Line Care, After every IV line use, For Line Patency: Peripheral IV = 5 mL; Midline or Central Line = 10 mL/lumen. If following IV push medication, administer flush at same rate as the IV push. Flush volume is determined by type of infusion therapy being given. For non-viscous solutions use: Peripheral IV = 5 mL Midline or Central Line = 10 mL/lumen For viscous solutions (i.e. blood components, parenteral nutrition, contrast media, or after obtaining blood sample) use: Peripheral IV = 10 mL Midline or Central Line = 20 mL/lumen Start: 02-24-2024 End: 02-24-2024 500 mL (4.05 mL/kg), IntraVE Nous, at 491.8 mL/hr, Administer over 61 Minutes, ONCE, On Thu02/24/24 at 1400, For 1 dose, For adult patients weighing > 55 kg (120 lbs.) and less than Start: 12-21-2023 sodium chlorid e flush 0.9 % injection 5-40 mL Start: 12-21-2023 sodium chlorid e flush 0.9 % injection 5-40 mL Start: 12-21-2023 End: 12-21-2023 0.9 % sodium chloride infusi on Start: 05-29-2021 0.9 % sodium c hloride infusion Start: 05-29-2021 sodium chlorid e flush 0.9 % injection 5-40 mL Start: 05-27-2021 10 mL, IntraVE Nous, EVERY 12 HOURS SCHEDULED (2 times per day), First dose on Thu05/27/21 at 2100 Start: 05-27-2021 take 25 mL intraveno usly every hour as needed 25 mL, IntraVENous, at 100 mL/hr, PRN, If patient receiving piggyback infusions without ordered maintenance IV fluids or with frequent/long duration piggyback infusions, Starting on Thu05/27/21 at 1618 Administer at the same rate as the piggyback being infused. Start: 05-27-2021 take 10 mL intraveno usly once as needed 10 mL, IntraVENous, PRN, Line Care, After every IV line use, Starting on Thu05/27/21 at 1618 tamsulosin hydrochloride 0.4 mg oral capsule (20 sources) alpha-Adrenergic Jayde Start: 08-05-2023 End: 12-23-2024 take 1 capsule by mouth once daily Tamsulosin 0.4 mg capsule Discontinued 0.4 MG PO Daily August 11, 2023 12:00am December 23, 2024 2:03pm Start: 10-15-2022 take 1 capsule by mo [facility] every twenty-four hours in the morning tamsulosin (Flomax) 0.4 MG 24 hr capsule Take 1 capsule by mouth in the morning. 10/15/2022 Active Start: 03-18-2022 take 1 capsule by mo ut twice daily tamsulosin (FLOMAX) 0.4 MG capsule Take 1 capsule by mouth 2 times daily 180 capsule 3 03/18/2022 Active Start: 09-16-2021 take 1 capsule by mo uth twice daily tamsulosin (FLOMAX) 0.4 MG capsule Take 1 capsule by mouth 2 times daily 180 capsule 3 09/16/2021 Active Start: 07-25-2020 take 1 capsule by mouth at bed time tamsulosin (FLOMAX) 0.4 MG capsule Indications: BPH with obstruction/lower urinary tract symptoms , Incomplete emptying of bladder Take 1 capsule by mouth in the morning and at bedtime 60 capsule 3 07/17/2021 Active technetium sestamibi (CARDIOLITE) injection 30 millicurie (2 sources) Start: 07-14-2022 End: 07-14-2022 technetium sestamibi (CARDIOLITE) injection 30 millicurie Start: 07-11-2022 End: 07-11-2022 technetium sestamibi (CARDIO LITE) injection 30 millicurie Torsemide (20 sources) Loop Diuretic Start: 05-12-2024 End: 05-27-2024 take 1 tablet by mouth once daily Torsemide 40 mg tablet Discontinued 40 MG PO Daily May 12, 2024 1:00am May 27, 2024 2:11pm Start: 05-12-2024 End: 05-27-2024 take 1 tablet by mouth once daily Torsemide 40 mg tablet Discontinued 40 MG PO Daily May 12, 2024 12:00am May 27, 2024 1:11pm Start: 03-15-2024 Torsemide 40 M G TABS Take 1 tablet in the morning and 1 tablet in the afternoon 180 tablet 3 03/15/2024 Active Problems Active Problems Problem Classification Problem Date Documented Da te Episodic/Chronic Abdominal pain (3 sources) Unspecified abdominal pain; Translations: [UNSPECIFIED ABDOMINAL PAIN] Onset: 3 Episodic Acute cerebrovascular disease (20 sources) Cerebrovascular accident; Translations: [Cerebral infarction, unspecified] Onset: 0 02-16-2023 Chronic Acute myocardial infarction (20 sources) Myocardial infarction; Translations: [Non-ST elevation (NSTEMI) myocardial infarction] 05-29-2021 Chronic Biliary tract disease (2 sources) Cholelithiasis without obstruction; Translations: [Calculus of gallbladder without cholecystitis without obstruction] Episodic Chronic kidney disease (20 sources) Chronic kidney disease stage 3; Translations: [Stage 3 chronic kidney disease, unspecified whether stage 3a or 3b CKD (HCC)] Onset: 3 Resolved: 2 Chronic Chronic kidney disease (16 sources) Chronic kidney disease; Translations: [Stage 3b chronic kidney disease N18.32] Onset: 4 Chronic ulcer of skin (20 sources) Ulcer of foot; Translations: [Non-pressure chronic ulcer of other part of unspecified foot with unspecified severity] Onset: 4 11-10-2023 Chronic Conditions associated with dizziness or vertigo (2 sources) Lightheadedness; Translations: [Dizziness and giddiness] Episodic Congestive heart failure; nonhypertensive (20 sources) Chronic systolic heart failure; Translations: [Chronic systolic (congestive) heart failure] Onset: 2 Chronic Coronary atherosclerosis and other heart disease (20 sources) Coronary arteriosclerosis; Translations: [Atherosclerotic heart disease of [place] coronary artery with angina pectoris with documented spasm] Onset: 0 Chronic Deficiency and other anemia (19 sources) Anemia of renal disease; Translations: [Anemia in chronic kidney disease] Chronic Deficiency and other anemia (19 sources) Anemia in chronic kidney disease; Translations: [Anemia in chronic kidney disease] Chronic Diabetes mellitus with complications (20 sources) Type II diabetes mellitus uncontrolled; Translations: [Type 2 diabetes mellitus with hyperglycemia] Onset: 1 07-29-2020 Chronic Comment on above: ISS coverage:< 150 [id number] 34u> 300 38Basal Insulin 20u am and 50u pm Diabetes mellitus without complication (20 sources) Type 2 diabetes mellitus without complication; Translations: [Type 2 diabetes mellitus without complications] Onset: 2 06-07-2021 Chronic Disorders of lipid metabolism (20 sources) Dyslipidemia; Translations: [Hyperlipidemia, unspecified] Onset: 0 Chronic Esophageal disorders (18 sources) Gastro-esophageal reflux disease with esophagitis; Translations: [Gastroesophageal reflux disease with esophagitis without hemorrhage] 08-11-2023 Chronic Essential hypertension (20 sources) Benign essential hypertension; Translations: [Essential (primary) hypertension] Onset: 2 Resolved: 1 Chronic Fluid and electrolyte disorders (7 sources) Dehydration; Translations: [Dehydration] Onset: 2 07-22-2024 Episodic Genitourinary symptoms and ill-defined conditions (1 source) Presence of urogenital implants; Translations: [PRESENCE OF UROGENITAL IMPLANTS] Onset: 3 Chronic Hyperplasia of prostate (20 sources) Benign prostatic hypertrophy with outflow obstruction; Translations: [Benign prostatic hyperplasia with lower urinary tract symptoms] Onset: 1 07-25-2020 Chronic Hypertension with complications and secondary hypertension (20 sources) Chronic kidney disease due to hypertension; Translations: [Hypertensive chronic kidney disease with stage 1 through stage 4 chronic kidney disease, or unspecified chronic kidney disease] Onset: 2 Chronic Infective arthritis and osteomyelitis (except that caused by tuberculosis or sexually transmitted disease) (19 sources) Osteomyelitis of forefoot; Translations: [Osteomyelitis, unspecified] Onset: 5 11-01-2024 Chronic Late effects of cerebrovascular disease (20 sources) Hemiplegia and hemiparesis following unspecified cerebrovascular disease affecting left non-dominant side; Translations: [Dysarthria following cerebral infarction] Onset: 0 02-16-2023 Chronic Malaise and fatigue (20 sources) Fatigue; Translations: [Chronic fatigue, unspecified] 08-11-2023 Chronic Mycoses (4 sources) Onychomycosis due to dermatophyte ; Translations: [Tinea unguium] 03-23-2024 Episodic Nutritional deficiencies (20 sources) Vitamin D deficiency; Translations: [Vitamin D deficiency, unspecified] 08-11-2023 Chronic Open wounds of extremities (7 sources) Open wound of toe; Translations: [Unspecified open wound of unspecified toe(s) without damage to nail, initial encounter] Onset: 5 11-11-2024 Episodic Osteoarthritis (20 sources) Arthritis of acromioclavicular joint; Translations: [Primary osteoarthritis, left shoulder] 08-11-2023 Chronic Other aftercare (19 sources) Long-term current use of insulin; 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] Episodic Other aftercare (5 sources) 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; Translations: [INTERMEDIATE CURRENT USE OF INSULIN] Onset: 3 Episodic Other aftercare (1 source) FPC (current) use of aspirin; 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] Onset: 3 Episodic Other aftercare (1 source) 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; Translations: [OTH INTERMEDIATE CURRENT DRUG THERAPY] Onset: 3 Episodic Other aftercare (5 sources) Follow-up status; Translations: [Encounter for other orthopedic aftercare] Onset: 5 11-15-2024 Episodic Other aftercare (1 source) Encounter for other orthopedic aftercare; Translations: [Encounter for other orthopedic aftercare] Onset: 5 Episodic Other and ill-defined cerebrovascular disease (20 sources) Cerebral atherosclerosis; Translations: [Cerebral atherosclerosis] 08-11-2023 Chronic Other and ill-defined cerebrovascular disease (6 sources) Cerebral atherosclerosis; Translations: [Cerebral atherosclerosis] 08-12-2023 Chronic Other and unspecified benign neoplasm (3 sources) Adenoma of left adrenal gland; Translations: [Benign neoplasm of left adrenal gland] Episodic Other bone disease and musculoskeletal deformities (2 sources) History of amputation of right great toe; Translations: [Acquired absence of right great toe] 11-15-2024 Chronic Other bone disease and musculoskeletal deformities (1 source) Acquired absence of right great toe; Translations: [Acquired absence of right great toe] Onset: 5 Chronic Other circulatory disease (20 sources) History of angioplasty; Translations: [Peripheral vascular angioplasty status with implants and grafts] Chronic Other circulatory disease (3 sources) Peripheral vascular angioplasty status with implants and grafts; Translations: [Peripheral vascular angioplasty status with implants and grafts] Onset: 2 Chronic Other circulatory disease (20 sources) History of cerebrovascular accident; Translations: [Personal history of transient ischemic attack (TIA), and cerebral infarction without residual deficits] Onset: 3 Episodic Other circulatory disease (6 sources) Personal history of transient ischemic attack (TIA), and cerebral infarction without residual deficits; Translations: [PERS HX TIA AND CI NO RESID DEFICIT] Onset: 3 Episodic Other connective tissue disease (14 sources) Disorder of musculoskeletal system; Translations: [Other symptoms and signs involving the musculoskeletal system] Episodic Other connective tissue disease (1 source) Other specified soft tissue disorders Episodic Other connective tissue disease (7 sources) Other symptoms and signs involving the musculoskeletal system; Translations: [Weakness of both lower extremities] Episodic Other connective tissue disease (1 source) Paraparesis; Translations: [Other symptoms and signs involving the musculoskeletal system] 08-11-2023 Episodic Other connective tissue disease (1 source) Pain of left lower leg; Translations: [Pain in left lower leg] 02-28-2024 Episodic Other diseases of kidney and ureters (1 source) Other specified disorders of kidney and ureter; Translations: [OTHER SPEC DISORDERS KIDNEY URETER] Onset: 3 Chronic Other diseases of veins and lymphatics (20 sources) Lymphedema; Translations: [Lymphedema, not elsewhere classified] 02-24-2024 Chronic Other diseases of veins and lymphatics (2 sources) Lymphedema, not elsewhere classified; Translations: [Lymphedema, not elsewhere classified] Onset: 4 Chronic Other diseases of veins and lymphatics (2 sources) Peripheral venous insufficiency; Translations: [Venous insufficiency (chronic) (peripheral)] Episodic Other diseases of veins and lymphatics (6 sources) Venous insufficiency of leg; Translations: [Venous insufficiency (chronic) (peripheral)] 08-11-2023 Episodic Other diseases of veins and lymphatics (1 source) Venous stasis edema of bilateral lower limbs; Translations: [Venous insufficiency (chronic) (peripheral)] 02-24-2024 Episodic Other ear and sense organ disorders (20 sources) Impacted cerumen; Translations: [Impacted cerumen, bilateral] Episodic Other endocrine disorders (3 sources) Primary hyperparathyroidism; Translations: [Primary hyperparathyroidism] Chronic Other endocrine disorders (19 sources) Other specified disorders of adrenal gland; Translations: [Nodule of adrenal cortex (disorder)] Chronic Other endocrine disorders (2 sources) Disorder of adrenal gland; Translations: [Other specified disorders of adrenal gland] Chronic Other endocrine disorders (15 sources) Hyperparathyroidism; Translations: [Hyperparathyroidism, unspecified] 08-11-2023 Chronic Other endocrine disorders (3 sources) Hyperparathyroidism, unspecified; Translations: [Hyperparathyroidism, unspecified] Chronic Other endocrine disorders (5 sources) Adrenal mass; Translations: [Other specified disorders of adrenal gland] 08-11-2023 Chronic Other endocrine disorders (2 sources) Primary hyperparathyroidism; Translations: [Primary hyperparathyroidism] Onset: 5 Chronic Other eye disorders (1 source) Conjunctival hemorrhage, right eye Episodic Other gastrointestinal disorders (1 source) Constipation; Translations: [Constipation, unspecified] 12-21-2023 Episodic Other lower respiratory disease (1 source) Dyspnea; Translations: [Shortness of breath] Episodic Other lower respiratory disease (1 source) Shortness of breath; Translations: [SHORTNESS OF BREATH] Onset: 3 Episodic Other lower respiratory disease (1 source) Dyspnea on exertion; Translations: [Other forms of dyspnea] Episodic Other lower respiratory disease (2 sources) Cough; Translations: [Cough] Episodic Other nervous system disorders (20 sources) Chronic pain; Translations: [Other chronic pain] 08-11-2023 Chronic Other nervous system disorders (13 sources) Cognitive deficit in communication skills; Translations: [Cognitive communication deficit] Onset: 0 02-16-2023 Chronic Other non-traumatic joint disorders (20 sources) Rotator cuff arthropathy of left shoulder; Translations: [Other specific arthropathies, not elsewhere classified, left shoulder] 08-11-2023 Chronic Other nutritional; endocrine; and metabolic disorders (20 sources) Hypercalcemia; Translations: [Hypercalcemia] Onset: 2 Chronic Other nutritional; endocrine; and metabolic disorders (20 sources) Obesity; Translations: [Obesity, unspecified] 03-15-2024 Chronic Other nutritional; endocrine; and metabolic disorders (19 sources) Hypophosphatemia; Translations: [Other disorders of phosphorus metabolism] Chronic Other nutritional; endocrine; and metabolic disorders (20 sources) Hyperphosphatemia; Translations: [Other disorders of phosphorus metabolism] 08-11-2023 Chronic Other nutritional; endocrine; and metabolic disorders (4 sources) Obesity, unspecified; Translations: [OBESITY UNSPECIFIED] Onset: 3 Chronic Other nutritional; endocrine; and metabolic disorders (1 source) Body mass index (BMI) 34.0-34.9, adult; Translations: [BODY MASS INDEX BMI 34.0-34.9 ADULT] Onset: 3 Chronic Other nutritional; endocrine; and metabolic disorders (4 sources) Hypercalcemia; Translations: [HYPERCALCEMIA] Onset: 2 Chronic Other nutritional; endocrine; and metabolic disorders (2 sources) Disorder of phosphorus metabolism; Translations: [Other disorders of phosphorus metabolism] Chronic Other nutritional; endocrine; and metabolic disorders (15 sources) Body mass index 30+ - obesity; Translations: [Body mass index (BMI) 30.0-30.9, adult] Onset: 0 Resolved: 1 02-16-2023 Chronic Other nutritional; endocrine; and metabolic disorders (2 sources) Body mass index (BMI) 38.0-38.9, adult; Translations: [Body mass index (BMI) 38.0-38.9, adult] Onset: 4 Chronic Other screening for suspected conditions (not mental disorders or infectious disease) (20 sources) Cardiovascular stress test abnormal; Translations: [Abnormal result of other cardiovascular function study] Onset: 2 Resolved: 2 Episodic Other skin disorders (4 sources) Dystrophia unguium; Translations: [Nail dystrophy] 03-23-2024 Episodic Other skin disorders (20 sources) Localized infection of skin AND/OR subcutaneous tissue; Translations: [Changes in skin texture] Onset: 5 07-12-2024 Episodic Other upper respiratory disease (20 sources) Allergic rhinitis; Translations: [Allergic rhinitis, unspecified] 08-11-2023 Chronic Peripheral and visceral atherosclerosis (20 sources) Intermittent claudication; Translations: [Peripheral vascular disease, unspecified] Onset: 4 Resolved: 1 Chronic Residual codes; unclassified (20 sources) Obstructive sleep apnea syndrome; Translations: [Obstructive sleep apnea (adult) (pediatric)] Onset: 2 Chronic Residual codes; unclassified (10 sources) Obstructive sleep apnea (adult) (pediatric); Translations: [Obstructive sleep apnea (adult)(pediatric)] Onset: 2 Chronic Residual codes; unclassified (1 source) Postoperative state; Translations: [Other specified postprocedural states] Episodic Skin and subcutaneous tissue infections (20 sources) Cellulitis of lower leg; Translations: [Cellulitis of left lower limb] Onset: 4 02-24-2024 Episodic Spondylosis; intervertebral disc disorders; other back problems (20 sources) Arthritis of facet joint of lumbar spine; Translations: [Spondylosis without myelopathy or radiculopathy, lumbar region] 08-11-2023 Chronic Spondylosis; intervertebral disc disorders; other back problems (20 sources) Backache; Translations: [Dorsalgia, unspecified] 08-11-2023 Episodic Unclassified (1 source) CHRN KIDNEY DISEASE STG 3 UNSP; Translations: [CHRN KIDNEY DISEASE STG 3 UNSP] Onset: 3 Unclassified (1 source) Open wound of toe; Translations: [Open wound of toe(s)] 11-11-2024 Urinary tract infections (1 source) Urinary tract infection, site not specified; Translations: [UTI SITE NOT SPECIFIED] Onset: Episodic Past or Other Problems Problem Classification Problem Date Documented Da te Episodic/Chronic Acute and unspecified renal failure (2 sources) [id number] renal failure; Translations: [Acute kidney failure, unspecified] Onset: 07-22-2024 07-22-2024 Episodic Esophageal disorders (1 source) Esophageal disorders Gangrene (20 sources) Bilateral gangrene of toe; Translations: [Gangrene, not elsewhere classified] Onset: 07-12-2024 07-12-2024 Episodic Genitourinary symptoms and ill-defined conditions (20 sources) Incomplete emptying of bladder; Translations: [Retention of urine, unspecified] Onset: 07-25-2020 07-25-2020 Episodic Malaise and fatigue (20 sources) Asthenia; Translations: [Weakness] Onset: 06-12-2021 Resolved: 05-12-2021 06-12-2021 Episodic Nonspecific chest pain (4 sources) Chest pain; Translations: [Chest pain, unspecified] Onset: 12-21-2023 Resolved: 05-10-2021 12-21-2023 Episodic Other and unspecified benign neoplasm (2 sources) Benign neoplasm of left adrenal gland; Translations: [Benign neoplasm of left adrenal gland] Resolved: 08-31-2021 Episodic Other connective tissue disease (13 sources) Muscle weakness; Translations: [Muscle weakness (generalized)] Onset: 2019 02-16-2023 Episodic Other connective tissue disease (1 source) Pain in left lower leg; Translations: [Pain in left lower leg] Onset: 02-28-2024 Episodic Other diseases of veins and lymphatics (7 sources) Venous insufficiency (chronic) (peripheral); Translations: [Venous (peripheral) insufficiency, unspecified] Onset: 02-24-2024 08-12-2023 Episodic Other gastrointestinal disorders (1 source) Constipation, unspecified; Translations: [Constipation, unspecified] Onset: 12-21-2023 Episodic Other lower respiratory disease (20 sources) Hypoxia; Translations: [Hypoxemia] Onset: 05-30-2021 Episodic Other nutritional; endocrine; and metabolic disorders (2 sources) Overweight; Translations: [Overweight] Resolved: 01-31-2021 Episodic Other nutritional; endocrine; and metabolic disorders (2 sources) Body mass index 25-29 - overweight; Translations: [Body mass index (BMI) 29.0-29.9, adult] Resolved: 01-31-2021 Episodic Other skin disorders (3 sources) Changes in skin texture; Translations: [Changes in skin texture] Onset: 07-12-2024 Episodic Other upper respiratory disease (2 sources) Seasonal allergic rhinitis; Translations: [Other seasonal allergic rhinitis] Resolved: 10-30-2021 Chronic Residual codes; unclassified (2 sources) Noncompliance with medication regimen; Translations: [Patient's other noncompliance with medication regimen] Resolved: 01-31-2021 Episodic Unclassified (2 sources) Diabetic ulcer of right great toe (HCC) 10-05-2024 Viral infection (20 sources) Disease caused by 2019-nCoV; Translations: [COVID-19] Onset: 06-06-2021 06-12-2021 Episodic Results Test Name Value Interpretation Reference Range Facility CBCon 12-06-2024 Erythrocyte distribution width (RBC) [Ratio] 12.6 % 11.8 - 14.4 % [facility] Hematocrit (Bld) [Volume fraction] 39.5 % Low 40.7 - 50.3 % [facility] Hemoglobin (Bld) [Mass/Vol] 12.6 g/dL Low 13.0 - 17.0 g/dL [facility] [employer] [facility] Interpretation and review of laboratory results Abnormal [facility] MCH (RBC) [Entitic mass] 29.2 pg 25.2 - 33.5 pg [facility] MCHC (RBC) [Mass/Vol] 31.9 g/dL 28.4 - 34.8 g/dL [facility] MCV (RBC) [Entitic vol] 91.6 fL 82.6 - 102.9 fL [facility] [employer] [facility] Nucleated RBC/100 WBC (Bld) [Ratio] 0 % 0.0 per 100 WBC [facility] Platelet mean volume (Bld) [Entitic vol] 10.8 fL 8.1 - 13.5 fL [facility] Platelets (Bld) [#/Vol] 352 10*3/uL [facility] [employer] [facility] RBC (Bld) [#/Vol] 4.31 10*6/uL 4.21 - 5.7 7 m/uL [facility] WBC other (Bld) [#/Vol] 7 B on [facility] Erythrocyte distribution width (RBC) [Ratio] 12.6 % Normal 11.8-14.4 [facility] Comment on above: Performed By: #### U MICAO, CBC, UAX, MG, RENP, URTPRT, URI ####[address] [place], [place] [id number] Lab Director: Eder Herrera MD#### PTHNCA ####[address] [id number] Lab Director: Jimenez Pruett MD Hematocrit (Bld) [Volume fraction] 39.5 % Low 40.7-50.3 [facility] Comment on above: Performed By: #### U MICAO, CBC, UAX, MG, RENP, URTPRT, URI ####[address] [place], [place] [id number] Lab Director: Eder Herrera MD#### PTHNCA ####[address] [address] Lab Director: Jimenez Pruett MD Hemoglobin (Bld) [Mass/Vol] 12.6 g/dL Low 13.0-17.0 [facility] Comment on above: Performed By: #### U MICAO, CBC, UAX, MG, RENP, URTPRT, URI ####[address] [place], [place] [id number] Lab Director: Eder Herrera MD#### PTHNCA ####[address] [id number] Lab Director: Jimenez Pruett MD MCH (RBC) [Entitic mass] 29.2 pg Normal 25.2-33.5 [facility] Comment on above: Performed By: #### U MICAO, CBC, UAX, MG, RENP, URTPRT, URI ####[address] [place], [place] [id number] Lab Director: Eder Herrera MD#### PTHNCA ####[address] [id number] Lab Director: Jimenez Pruett MD MCHC (RBC) [Mass/Vol] 31.9 g/dL Normal 28.4-34.8 [facility] Comment on above: Performed By: #### U MICAO, CBC, UAX, MG, RENP, URTPRT, URI ####[address] [place] [id number] [facility] Director: Eder Herrera MD#### PTHNCA ####[address] [address] Lab Director: Jimenez Pruett MD MCV (RBC) [Entitic vol] 91.6 fL Normal 82.6-102.9 M [facility] Comment on above: Performed By: #### U MICAO, CBC, UAX, MG, RENP, URTPRT, URI ####[address] [place] [id number] Lab Director: Eder Herrera MD#### PTHNCA ####[address] [address] Lab Director: Jimenez Pruett MD NRBC Automated 0.0 per 100 WBC Normal 0.0 [facility] Comment on above: Performed By: #### U MICAO, CBC, UAX, MG, RENP, URTPRT, URI ####[address] [place] [id number] Lab Director: Eder Herrera MD#### PTHNCA ####[address] [place] [address] Lab Director: Jimenez Pruett MD Platelet mean volume (Bld) [Entitic vol] 10.8 fL Normal 8.1-13.5 [facility] Comment on above: Performed By: #### U MICAO, CBC, UAX, MG, RENP, URTPRT, URI ####[address] [place] [address]([facility])[phone] Director: Eder Herrera MD#### PTHNCA ####[address] [phone] Director: Jimenez Pruett MD Platelets (Bld) [#/Vol] 352 10*3/uL Normal 138-453 [facility] Comment on above: Performed By: #### U MICAO, CBC, UAX, MG, RENP, URTPRT, URI ####[address] [place] [address]([facility])[phone] Director: Eder Herrera MD#### PTHNCA ####[place], [place] [address])[phone] Director: Jimenez Pruett MD RBC (Bld) [#/Vol] 4.31 10*6/uL Normal 4.21-5.77 [facility] Comment on above: Performed By: #### U MICAO, CBC, UAX, MG, RENP, URTPRT, URI ####[address] [place] [address]([facility])[phone] Director: Eder Herrera MD#### PTHNCA ####[place], [place] [address])[phone] Director: Jimenez Pruett MD WBC (Bld) [#/Vol] 7.0 10*3/uL Normal 3.5-11.3 [facility] Comment on above: Performed By: #### U MICAO, CBC, UAX, MG, RENP, URTPRT, URI ####[address] [place] [address] Lab Director: Eder Herrera MD#### PTHNCA ####[facility] [place], [place] [id number] Lab Director: Jimenez Pruett MD Magnesiumon 12-06-2024 Magnesium [Mass/Vol] 2.4 mg/dL 1.6 - 2 .4 mg/dL [facility] Magnesium [Mass/Vol] 2.4 mg/dL Normal 1.6-2.4 [facility] Comment on above: Performed By: #### U MICAO, CBC, UAX, MG, RENP, URTPRT, URI ####[address] [place] [address] lab Director: Eder Herrera MD#### PTHNCA ####[place] [address] [place], [place] [id number] Lab Director: Jimenez Pruett MD Microscopic Urinalysison Epithelial cells LM.HPF (Urine sed) [#/Area] 0 TO 2 [facility] RBC LM.HPF (Urine sed) [#/Area] 0 TO 2 [facility] WBC LM.HPF (Urine sed) [#/Area] None [facility] No Panel Informationon 12-06 [facility] PTH, [place] 12-06-2024 Interpretation and review of laboratory results Abnormal [facility] Parathyrin.intact [Mass/Vol] 164.0 pg/mL High 17.9 - 58.6 pg/mL [facility] PTH, Intact 164.0 pg/mL High 17.9-58.6 [facility] Comment on above: Performed By: #### U MICAO, CBC, UAX, MG, RENP, URTPRT, URI ####[address] [place] [address] [facility] Director: Eder Herrera MD#### PTHNCA ####[address] [place] [address] Lab Director: Jimenez Pruett MD Protein / creatinine ratio, urineon 12-06-2024 Creatinine (U) [Mass/Vol] 59.5 mg/dL 39.0 - 259.0 mg/dL [facility] Protein (U) [Mass/Vol] 10 mg/dL [facility] Comment on above: No normal range esta blished. Urine Total Protein Creatinine Ratio 0.17 0.00 - 0.20 [facility] Protein,Tot,[place] Uron 2024 Creatinine [Mass/Vol] 59.5 mg/dL Normal 39.0-259.0 [facility] Comment on above: Performed By: #### U MICAO, CBC, UAX, MG, RENP, URTPRT, URI ####[address] [place] [id number]([facility])[phone] Director: Eder Herrera MD#### PTHNCA ####[place] [address] Lab Director: Jimenez Pruett MD Tot Prot. Conc. 10 mg/dL Normal [facility] Comment on above: Result Comment: No n ormal range established. Performed By: #### U MICAO, CBC, UAX, MG, RENP, URTPRT, URI ####[address] [place] [phone] Lab Director: Eder Herrera MD#### PTHNCA ####[place] [address] [place] [id number] Lab Director: Jimenez Pruett MD TP/Cre Ratio 0.17 Normal 0.00-0.20 [facility] Comment on above: Performed By: #### U MICAO, CBC, UAX, MG, RENP, URTPRT, URI ####[facility] [place] [address] Lab Director: Eder Herrera MD#### PTHNCA ####[facility] [address] [place], [place] [id number] lab Director: Jimenez Purett MD Renal Function Panelon 12-06 Albumin [Mass/Vol] 4.2 g/dL 3.5 - 5.2 g/dL [facility] Anion gap [Moles/Vol] 12 mmol/L 9 - 16 mmol/L [facility] Calcium [Mass/Vol] 10.1 mg/dL 8.6 - 10. 4 mg/dL [facility] Chloride [Moles/Vol] 103 mmol/L 98 - 10 7 mmol/L [facility] CO2 [Moles/Vol] 22 mmol/L 20 - 31 mmol/L [facility] Creatinine [Mass/Vol] 1.4 mg/dL High 0.70 - 1.20 mg/dL [facility] Est, Glom Filt Rate 54 Low - PINF [facility] Comment on above: These results are not intended for use in patients <18 years of age. eGFR results are calculated without a race factor using the 2020 CKD-EPI equation. Careful clinical correlation is recommended, particularly when comparing to results calculated using previous equations. The CKD-EPI equation is less accurate in patients with extremes of muscle mass, extra-renal metabolism of creatine, excessive creatine ingestion, or following therapy that affects renal tubular secretion. Glucose [Mass/Vol] 128 mg/dL High 74 - 99 mg/dL [facility] [employer] [facility] Interpretation and review of laboratory results Abnormal [facility] Phosphate [Mass/Vol] 2.3 mg/dL Low 2.5 - 4 .5 mg/dL [facility] Potassium [Moles/Vol] 4.1 mmol/L 3.7 - 5.3 mmol/L [facility] [employer] [facility] Sodium [Moles/Vol] 137 mmol/L 136 - 145 mmol/L [facility] Urea nitrogen [Mass/Vol] 34 mg/dL High 8 - 23 mg/dL [facility] Urea nitrogen/Creatinine [Mass ratio] 24 mg/mg High 9 - 20 [facility] Albumin [Mass/Vol] 4.2 g/dL Normal 3.5-5.2 [facility] Comment on above: Performed By: #### U MICAO, CBC, UAX, MG, RENP, URTPRT, URI ####[address] [place], [place] [id number] [facility] Director: Eder Herrera MD#### PTHNCA ####[place] [place], [place] [id number] Lab Director: Jimenez Pruett MD Anion gap [Moles/Vol] 12 mmol/L Normal 9-16 [facility] Comment on above: Performed By: #### U MICAO, CBC, UAX, MG, RENP, URTPRT, URI ####[address] [place], [place] [id number] [facility] Director: Eder Herrera MD#### PTHNCA ####[address] [id number] Lab Director: Jimenez Pruett MD BUN/CRE Ratio 24 High - [facility] Comment on above: Performed By: #### U MICAO, CBC, UAX, MG, RENP, URTPRT, URI ####[address] [place], [place] [id number] Lab Director: Eder Herrera MD#### PTHNCA ####[address] [id number] Lab Director: Jimenez Pruett MD Calcium [Mass/Vol] 10.1 mg/dL Normal 8.6-10.4 [facility] Comment on above: Performed By: #### U MICAO, CBC, UAX, MG, RENP, URTPRT, URI ####[address] [place] [address] Lab Director: Eder Herrera MD#### PTHNCA ####[facility] [place] [address] Lab Director: Jimenez Pruett MD Chloride [Moles/Vol] 103 mmol/L Normal 98-107 [facility] Comment on above: Performed By: #### U MICAO, CBC, UAX, MG, RENP, URTPRT, URI ####[address] [place], [place] 1964[address] Lab Director: Eder Herrera MD#### PTHNCA ####[address] [place] [address] Lab Director: Jimenez Pruett MD CO2 [Moles/Vol] 22 mmol/L Normal 20-31 [facility] Comment on above: Performed By: #### U MICAO, CBC, UAX, MG, RENP, URTPRT, URI ####[address] [place] [address] Lab Director: Eder Herrera MD#### PTHNCA ####[address] [address] Lab Director: Jimenez Pruett MD Creatinine [Mass/Vol] 1.4 mg/dL High 0.70-1.20 [facility] Comment on above: Performed By: #### U MICAO, CBC, UAX, MG, RENP, URTPRT, URI ####[address] [place] [address] Lab Director: Eder Herrera MD#### PTHNCA ####[address] [address] Lab Director: Jimenez Pruett MD GFR/1.73 sq M.predicted among non-blacks MDRD (S/P/Bld) [Vol rate/Area] 54 mL/min/{1.73_m2} Low >60 [facility] Comment on above: Result Comment: Thes e results are not intended for use in patients <18 years of age.eGFR results are calculated without a race factor using the 2020 CKD-EPI equation.Careful clinical correlation is recommended, particularly when comparing to results calculated using previous equations.The CKD-EPI equation is less accurate in patients with extremes of muscle mass, extra-renal metabolism of creatine, excessive creatine ingestion, or following therapy that affects renal tubular secretion. Performed By: #### U MICAO, CBC, UAX, MG, RENP, URTPRT, URI ####[address] [place], [place] 0680483 Lab Director: Eder Herrera MD#### PTHNCA ####[address] [place], [place] 7678908 Lab Director: Jimenez Pruett MD Glucose [Mass/Vol] 128 mg/dL High 74-99 [facility] Comment on above: Performed By: #### U MICAO, CBC, UAX, MG, RENP, URTPRT, URI ####[address] [place], [place] 9[address]3 Lab Director: Eder Herrera MD#### PTHNCA ####[address] [id number] Lab Director: Jimenez Pruett MD Phosphorus, Inorg. 2.3 mg/dL Low 2.5-4.5 [facility] Comment on above: Performed By: #### U MICAO, CBC, UAX, MG, RENP, URTPRT, URI ####[address] [place], [place] 9479683 Lab Director: Eder Herrera MD#### PTHNCA ####[address] [place], [place] 0619508 Lab Director: Jimenez Pruett MD Potassium [Moles/Vol] 4.1 mmol/L Normal 3.7-5.3 [facility] Comment on above: Performed By: #### U MICAO, CBC, UAX, MG, RENP, URTPRT, URI ####[address] [place], [place] 3945383 Lab Director: Eder Herrera MD#### PTHNCA ####[address] [phone] Lab Director: Jimenez Pruett MD Sodium [Moles/Vol] 137 mmol/L Normal 136-145 [facility] Comment on above: Performed By: #### U MICAO, CBC, UAX, MG, RENP, URTPRT, URI ####[address] [place] 9[address]83 [facility] Director: Eder Herrera MD#### PTHNCA ####[address] [address] Lab Director: Jimenez Pruett MD Urea nitrogen [Mass/Vol] 34 mg/dL High 8-23 [facility] Comment on above: Performed By: #### U MICAO, CBC, UAX, MG, RENP, URTPRT, URI ####[address] , [facility] Lab Director: Eder Herrera MD#### PTHNCA ####[address] [address] Lab Director: Jimenez Pruett MD UA w/Reflex Cultureon 2024 Clarity (U) Clear Normal CLEAR [facility] Comment on above: Performed By: #### U MICAO, CBC, UAX, MG, RENP, URTPRT, URI ####[address] [place], [place] 9957083 Lab Director: Eder Herrera MD#### PTHNCA ####[address] [id number] Lab Director: Jimenez Pruett MD Color (U) Yellow Normal YEL [facility] Comment on above: Performed By: #### U MICAO, CBC, UAX, MG, RENP, URTPRT, URI ####[address] [place], [place] 5307583 Lab Director: Eder Herrera MD#### PTHNCA ####[address] 1518108 Lab Director: Jimenez Pruett MD Leukocyte esterase Test strip Ql (U) Negative Normal NEG [facility] Comment on above: Performed By: #### U MICAO, CBC, UAX, MG, RENP, URTPRT, URI ####[address] [place] [address]83 [facility] Director: Eder Herrera MD#### PTHNCA ####[address] [address] Lab Director: Jimenez Pruett MD Bilirubin, SemiQt,Ur Negative Normal NEG [facility] Comment on above: Performed By: #### U MICAO, CBC, UAX, MG, RENP, URTPRT, URI ####[address] [place] 9[address]83 [facility] Director: Eder Herrera MD#### PTHNCA ####[address] [address] Lab Director: Jimenez Pruett MD Blood, Urine Negative Normal NEG [facility] Comment on above: Performed By: #### U MICAO, CBC, UAX, MG, RENP, URTPRT, URI ####[address] [place], [place] 0954783 Lab Director: Eder Herrera MD#### PTHNCA ####[address] [place] [address] Lab Director: Jimenez Pruett MD Glucose Ql (U) 3+ mg/dL Abnormal NEG [facility] Comment on above: Performed By: #### U MICAO, CBC, UAX, MG, RENP, URTPRT, URI ####[address] [place] [address] [facility] Director: Eder Herrera MD#### PTHNCA ####[address] [address] Lab Director: Jimenez Pruett MD Ketones Ql (U) Negative Normal NEG [facility] Comment on above: Performed By: #### U MICAO, CBC, UAX, MG, RENP, URTPRT, URI ####[address] [place] [address] [facility] Director: Eder Herrera MD#### PTHNCA ####[address] [address] Lab Director: Jimenez Pruett MD Nitrite,Ur Negative Normal NEG [facility] Comment on above: Performed By: #### U MICAO, CBC, UAX, MG, RENP, URTPRT, URI ####[address] [place] 9[address] Lab Director: Eder Herrera MD#### PTHNCA ####[address] [address] Lab Director: Jimenez Pruett MD PH,Ur 6.0 Normal 5.0-9.0 [facility] Comment on above: Performed By: #### U MICAO, CBC, UAX, MG, RENP, URTPRT, URI ####[address] [place] [address] [facility] Director: Eder Herrera MD#### PTHNCA ####[address] [place] [address] Lab Director: Jimenez Pruett MD Protein Ql (U) Negative Normal NEG [facility] Comment on above: Performed By: #### U MICAO, CBC, UAX, MG, RENP, URTPRT, URI ####[address] [place], [place] 9031483 [facility] Director: Eder Herrera MD#### PTHNCA ####[address] [address] Lab Director: Jimenez Pruett MD Spec. [place],Ur <1.005 Low 1.010-1.020 [facility] Comment on above: Performed By: #### U MICAO, CBC, UAX, MG, RENP, URTPRT, URI ####[address] [place], [place] 1965983 Lab Director: Eder Herrera MD#### PTHNCA ####[address] [address] Lab Director: Jimenez Pruett MD Urobilinogen,Ur Normal Normal 0.0-1.0 [facility] Comment on above: Performed By: #### U MICAO, CBC, UAX, MG, RENP, URTPRT, URI ####[address] [place], [place] 3092083 Lab Director: Eder Herrera MD#### PTHNCA ####[address] [place] [address] Lab Director: Jimenez Pruett MD Uric Acidon 12-06-2024 Urate [Mass/Vol] 5.5 mg/dL 3.4 - 7.0 mg/dL [facility] Urate [Mass/Vol] 5.5 mg/dL Normal 3.4-7.0 [facility] Comment on above: Performed By: #### U MICAO, CBC, UAX, MG, RENP, URTPRT, URI ####[facility] [place] [address] lab Director: Eder Herrera MD#### PTHNCA ####[address] [place], [place] 2508408 lab Director: Jimenze Pruett MD Urinalysis with Reflex to Cu ltureon 12-06-2024 Bilirubin Ql (U) Negative NEGATIVE [facility] Glucose Test strip (U) [Mass/Vol] 3+ Abnormal NEGATIVE mg/dL [facility] Hemoglobin Auto test strip Ql (U) Negative NEGATIVE [facility] Interpretation and review of laboratory results Abnormal [facility] Ketones (U) [Mass/Vol] Negative NEGAT PAO mg/dL [facility] Nitrite Ql (U) Negative NEGATIVE [facility] pH (U) 6 [pH] 5.0 - 9.0 [facility] Protein (U) [Mass/Vol] Negative NEGAT PAO mg/dL [facility] Specific gravity (U) [Rel density] Low 1.010 - 1.020 [facility] Urobilinogen Qn (U) Normal 0.0 - 1. 0 EU/dL [facility] Urinalysis,Microon 5 Epithelial cells LM Ql (Urine sed) 0 TO 2 Normal 0-5 [facility] Comment on above: Performed By: #### U MICAO, CBC, UAX, MG, RENP, URTPRT, URI ####[facility] [place] [address] Lab Director: Eder Herrera MD#### PTHNCA ####[address] [place], [place] 7893308 Lab Director: Jimenez Pruett MD Urine RBC's 0 TO 2 Normal 0-2 [facility] Comment on above: Performed By: #### U MICAO, CBC, UAX, MG, RENP, URTPRT, URI ####[facility] [place] [address] Lab Director: Eder Herrera MD#### PTHNCA ####[facility] [address] [place], [place] 8372608 Lab Director: Jimenez Pruett MD Urine WBC's None Normal 0-5 [facility] Comment on above: Performed By: #### U MICAO, CBC, UAX, MG, RENP, URTPRT, URI ####[facility] , [place] [id number] lab Director: Eder Herrera MD#### PTHNCA ####[address] [place], [place] 1295208 lab Director: Jimenez Pruett MD Basophils Auto (Bld) [#/Vol] Ordered By: Jeremias Sullivan on 11-15-2024 Basophils (Bld) [#/Vol] 0.0 10 3/uL 0.0-0.1 [facility] Basophils/100 WBC Auto (Bld) Ordered By: Jeremias Sullivan on 11-15-2024 Basophils/100 WBC (Bld) 0.2 % 0.2-2.[address] [facility] Eosinophils/100 WBC Auto (Bl d)Ordered By: Jeremias Sullivan on 11-15-2024 Eosinophils/100 WBC (Bld) 1.1 % 0.9-7.0 [facility] Erythrocyte distribution wid th Auto (RBC) [Ratio]Ordered By: Jeremias Sullivan on 11-15-2024 Erythrocyte distribution width (RBC) [Ratio] 13.0 % 11.0-15.0 [facility] Estimated glomerular filtrat ion rate (GFR) non- AmericanOrdered By: Jeremias Sullivan on 11-15-2024 GFR/1.73 sq M.predicted among non-blacks MDRD (S/P/Bld) [Vol rate/Area] 43 mL/min/{1.73_m2} Low >=60 mL/min/1.73 m 2 [facility] Hematocrit Auto (Bld) [Volum e fraction]Ordered By: Jeremias Sullivan on 11-15-2024 Hematocrit (Bld) [Volume fraction] 37.1 % Low 42.0-54.0 [facility] Hemoglobin [Mass/volume] in BloodOrdered By: Jeremias Sullivan on 11-15-2024 Hemoglobin (Bld) [Mass/Vol] 12.5 g/dL Low 14.0-18.0 [facility] Laboratory - Chemistry and C hemistry - challengeOrdered By: Jeremias Sullivan on 11-15-2024 Bilirubin Ql (U) Negative NEGATIVE [facility] Glucose (U) [Mass/Vol] mg/dL Abnormal NEGATIVE Fi [facility] Ketones Ql (U) Negative NEGATIVE [facility] pH (U) 7.5 [pH] 5.0-9.0 [facility] Specific gravity (U) [Rel density] <=1.005 Abnormal 1.005-1.025 [facility] Urobilinogen Qn (U) 0.2 {Fabiana'U}/dL 0.2-1.0 [facility] Calcium [Mass/Vol] 10.2 mg/dL High 8.5-10.1 [facility] Chloride [Moles/Vol] 101 mmol/L 98-107 [facility] CO2 [Moles/Vol] 28.8 mmol/L 21.0-32.0 [facility] Creatinine [Mass/Vol] 1.63 mg/dL High 0.70-1.30 [facility] GFR/1.73 sq M.predicted MDRD (S/P/Bld) [Vol rate/Area] 52 mL/min/{1.73_m2} Low >=60 mL/min/1.73 m 2 [facility] Glucose [Mass/Vol] 126 mg/dL High 74-106 [facility] Potassium [Moles/Vol] 4.1 mmol/L 3.5-5.1 [facility] Sodium [Moles/Vol] 138 mmol/L 136-145 [facility] Urea nitrogen [Mass/Vol] 34.0 mg/dL High 7.0-18.0 [facility] Urea nitrogen/Creatinine [Mass ratio] 20.9 mg/mg [facility] Laboratory - Hematology and Cell countsOrdered By: Jeremias Sullivan on 11-15-2024 Immature granulocytes/100 WBC (Bld) 0.3 % 0.0-0.5 [facility] - Specimen inform ationOrdered By: Jeremias Sullivan on 11-15-2024 Appearance (U) CLEAR CLEAR [facility] Color (U) LT. YELLOW YELLOW [facility] Laboratory - UrinalysisOrder ed By: Jeremias Sullivan on 11-15-2024 Leukocyte esterase Test strip Ql (U) Negative NEGATIVE [facility] Mucus Ql (Urine sed) NONE SEEN NONE SEEN [facility] Nitrite Ql (U) Negative NEGATIVE [facility] Protein Ql (U) Negative NEG/TRACE [facility] Leukocytes [#/volume] correc yaneth for nucleated erythrocytes in Blood by Automated counOrdered By: Jeremias Sullivan on 11-15-2024 WBC corrected for nucl RBC Auto (Bld) [#/Vol] 8.8 10 3/uL 4.0-11.0 [facility] Lymphocytes Auto (Bld) [#/Vo l]Ordered By: Jeremias Sullivan on 11-15-2024 Lymphocytes (Bld) [#/Vol] 1.4 10 3/uL 1.2-3.8 [facility] Lymphocytes/100 WBC Auto (Bl d)Ordered By: Jeremias Sullivan on 11-15-2024 Lymphocytes/100 WBC (Bld) 15.8 % Low 20.5-60.0 [facility] MCH Auto (RBC) [Entitic mass ]Ordered By: Jeremias Sullivan on 11-15-2024 MCH (RBC) [Entitic mass] 30.8 pg 25.9-34.0 [facility] MCHC Auto (RBC) [Mass/Vol]Or dered By: Jeremias Sullivan on 11-15-2024 MCHC (RBC) [Mass/Vol] 33.7 g/dL 29.9-35.2 [facility] MCV Auto (RBC) [Entitic vol] Ordered By: Jeremias Sullivan on 11-15-2024 MCV (RBC) [Entitic vol] 91.4 fL 80.0-94.0 F [facility] Monocytes Auto (Bld) [#/Vol] Ordered By: Jeremias Sullivan on 11-15-2024 Monocytes (Bld) [#/Vol] 1.0 10 3/uL High 0.3-0.8 [facility] Monocytes/100 WBC Auto (Bld) Ordered By: Jeremias Sullivan on 11-15-2024 Monocytes/100 WBC (Bld) 11.2 % 1.7-12.0 F [facility] Neutrophils Auto (Bld) [#/Vo l]Ordered By: Jeremias Sullivan on 11-15-2024 Neutrophils (Bld) [#/Vol] 6.3 10 3/uL 1.4-6.5 [facility] Neutrophils/100 WBC Auto (Bl d)Ordered By: Jeremias Sullivan on 11-15-2024 Neutrophils/100 WBC (Bld) 71.4 % 43.0-75.0 [facility] No Panel InformationOrdered By: Jeremias Sullivan on 11-15-2024 Urine Bacteria TRACE #/HPF Abnormal NONE SEEN [facility] Urine Culture Reflexed NO [facility] Urine Occult Blood Negative NEGATIVE [facility] Urine Other Casts NONE SEEN #/LPF NONE SEEN [facility] Urine Other Crystals None Seen #/HPF None Seen [facility] Urine RBC NONE SEEN #/HPF 0-2 [facility] Urine Squamous Epithelial Cells NONE SEEN #/LPF NONE/RARE [facility] Urine WBC NONE SEEN #/HPF NONE SEEN [facility] Eosinophils # (Auto) 0.1 10 3/uL 0.0-0.7 [facility] Immature Granulocyte # (Auto) 0.03 10 3/uL 0.00-0.03 [facility] Platelet mean volume Auto (B ld) [Entitic vol]Ordered By: Jeremias Sullivan on 11-15-2024 Platelet mean volume (Bld) [Entitic vol] 10.7 fL 9.5-13.5 [facility] Platelets Auto (Bld) [#/Vol] Ordered By: Jeremias Sullivan on 11-15-2024 Platelets (Bld) [#/Vol] 308 10 3/uL 150-450 [facility] RBC Auto (Bld) [#/Vol]Ordere d By: Jeremias Sullivan on 11-15-2024 RBC (Bld) [#/Vol] 4.06 10 6/uL Low 4.70-6.10 [facility] Serum or plasma anion gap de terminationOrdered By: Jeremias Sullivan on 11-15-2024 Anion gap [Moles/Vol] 12.3 mmol/L [facility] Glucose, Whole Bloodon 11-11 Glucose [Mass/Vol] 184 mg/dL High 74 - 100 mg/dL [facility] Glucose [Mass/Vol] 196 mg/dL High 74 - 100 mg/dL [facility] Glucose [Mass/Vol] 184 mg/dL High 74-100 [facility] Glucose [Mass/Vol] 196 mg/dL High 74-100 [facility] No Panel Informationon 11-11 Interpretation and review of laboratory results Abnormal [facility] Surgical Pathology Reporton 11-11-2024 Surgical Pathology Report Normal [facility] CBCon 11-01-2024 Erythrocyte distribution width (RBC) [Ratio] 13 % 11.8 - 14.4 % [facility] Hematocrit (Bld) [Volume fraction] 38.9 % Low 40.7 - 50.3 % [facility] Hemoglobin (Bld) [Mass/Vol] 12.7 g/dL Low 13.0 - 17.0 g/dL [facility] Interpretation and review of laboratory results Abnormal [facility] MCH (RBC) [Entitic mass] 31 pg 25.2 - 33.5 pg [facility] MCHC (RBC) [Mass/Vol] 32.6 g/dL 28.4 - 34.8 g/dL [facility] MCV (RBC) [Entitic vol] 94.9 fL 82.6 - 102.9 fL [facility] Nucleated RBC/100 WBC (Bld) [Ratio] 0 % 0.0 per 100 WBC [facility] Platelet mean volume (Bld) [Entitic vol] 10.7 fL 8.1 - 13.5 fL [facility] Platelets (Bld) [#/Vol] 279 10*3/uL [facility] RBC (Bld) [#/Vol] 4.1 10*6/uL Low 4.21 - 5.7 7 m/uL [facility] WBC other (Bld) [#/Vol] 7.4 B on [facility] Erythrocyte distribution width (RBC) [Ratio] 13.0 % Normal 11.8-14.4 [facility] Comment on above: Performed By: #### R ENP, UAX, CBC, URI, URTPRT, UMICAO, MG ####[address] [place] [address] [facility] Director: Eder Herrera MD#### PTHNCA ####[place] [id number] Lab Director: Jimenez Pruett MD Hematocrit (Bld) [Volume fraction] 38.9 % Low 40.7-50.3 [facility] Comment on above: Performed By: #### R ENP, UAX, CBC, URI, URTPRT, UMICAO, MG ####[address] [place] [address]83 [facility] Director: Eder Herrera MD#### PTHNCA ####[address] [id number] Lab Director: Jimenez Pruett MD Hemoglobin (Bld) [Mass/Vol] 12.7 g/dL Low 13.0-17.0 [facility] Comment on above: Performed By: #### R ENP, UAX, CBC, URI, URTPRT, UMICAO, MG ####[address] [place] [address] Lab Director: Eder Herrera MD#### PTHNCA ####[address] [address] Lab Director: Jimenez Pruett MD MCH (RBC) [Entitic mass] 31.0 pg Normal 25.2-33.5 [facility] Comment on above: Performed By: #### R ENP, UAX, CBC, URI, URTPRT, UMICAO, MG ####[address] [place] [address] Lab Director: Eder Herrera MD#### PTHNCA ####[place] [address] Lab Director: Jimenez Pruett MD MCHC (RBC) [Mass/Vol] 32.6 g/dL Normal 28.4-34.8 [facility] Comment on above: Performed By: #### R ENP, UAX, CBC, URI, URTPRT, UMICAO, MG ####[address] [place] [address] Lab Director: Eder Herrera MD#### PTHNCA ####[place] [address] Lab Director: Jimenez Pruett MD MCV (RBC) [Entitic vol] 94.9 fL Normal 82.6-102.9 M [facility] Comment on above: Performed By: #### R ENP, UAX, CBC, URI, URTPRT, UMICAO, MG ####[address] [place] [address] Lab Director: Eder Herrera MD#### PTHNCA ####[address] [address] lab Director: Jimenez Pruett MD NRBC Automated 0.0 per 100 WBC Normal 0.0 [facility] Comment on above: Performed By: #### R ENP, UAX, CBC, URI, URTPRT, UMICAO, MG ####[address] , [place] 934[address]83 Lab Director: Eder Herrera MD#### PTHNCA ####[address] [place], [place] [phone] Director: Jimenez Pruett MD Platelet mean volume (Bld) [Entitic vol] 10.7 fL Normal 8.1-13.5 [facility] Comment on above: Performed By: #### R ENP, UAX, CBC, URI, URTPRT, UMICAO, MG ####[address] , [facility] Lab Director: Eder Herrera MD#### PTHNCA ####[address] [place], [place] [address])[phone] Director: Jimenez Pruett MD Platelets (Bld) [#/Vol] 279 10*3/uL Normal 138-453 [facility] Comment on above: Performed By: #### R ENP, UAX, CBC, URI, URTPRT, UMICAO, MG ####[address] , [facility] Lab Director: Eder Herrera MD#### PTHNCA ####[address] [place], [place] [address])[phone] Director: Jimenez Pruett MD RBC (Bld) [#/Vol] 4.10 10*6/uL Low 4.21-5.77 [facility] Comment on above: Performed By: #### R ENP, UAX, CBC, URI, URTPRT, UMICAO, MG ####[address] [place] [address] Lab Director: Eder Herrera MD#### PTHNCA ####[address], [place] 4743[address] Lab Director: Jimenez Pruett MD WBC (Bld) [#/Vol] 7.4 10*3/uL Normal 3.5-11.3 [facility] Comment on above: Performed By: #### R ENP, UAX, CBC, URI, URTPRT, UMICAO, MG ####[facility] [place] [address] lab Director: Eder Herrera MD#### PTHNCA ####[address] [place], [place] 86[address]8 lab Director: Jimenez Pruett MD Magnesiumon 11-01-2024 Magnesium [Mass/Vol] 1.9 mg/dL 1.6 - 2 .4 mg/dL [facility] Magnesium [Mass/Vol] 1.9 mg/dL Normal 1.6-2.4 [facility] Comment on above: Performed By: #### R ENP, UAX, CBC, URI, URTPRT, UMICAO, MG ####[address] [place] [address] lab Director: Eder Herrera MD#### PTHNCA ####[address] [place], [place] 9606808 lab Director: Jimenez Pruett MD Microscopic Urinalysison Epithelial cells LM.HPF (Urine sed) [#/Area] 10 TO 20 [facility] RBC LM.HPF (Urine sed) [#/Area] 0 TO 2 [facility] WBC LM.HPF (Urine sed) [#/Area] 2 TO 5 [facility] No Panel Informationon 11-01 [facility] PTH, [place] 11-01-2024 Interpretation and review of laboratory results Abnormal [facility] Parathyrin.intact [Mass/Vol] 164.0 pg/mL High 17.9 - 58.6 pg/mL Bon [facility] PTH, Intact 164.0 pg/mL High 17.9-58.6 [facility] Comment on above: Performed By: #### R ENP, UAX, CBC, URI, URTPRT, UMICAO, MG ####[facility] [place], [place] [id number] Lab Director: Eder Herrera MD#### PTHNCA ####[address] [place], [place] 5129508 Lab Director: Jimenez Pruett MD Protein / creatinine ratio, urineon 11-01-2024 Creatinine (U) [Mass/Vol] 39.1 mg/dL 39.0 - 259.0 mg/dL [facility] Protein (U) [Mass/Vol] mg/dL mg/dL Brandon [facility] Comment on above: No normal range esta blished. Urine Total Protein Creatinine Ratio Can not be calculated 0.00 - 0.20 [facility] Protein,Tot,[place] Uron 2024 Creatinine [Mass/Vol] 39.1 mg/dL Normal 39.0-259.0 [facility] Comment on above: Performed By: #### R ENP, UAX, CBC, URI, URTPRT, UMICAO, MG ####[address] [place], [place] [id number] Lab Director: Eder Herrera MD#### PTHNCA ####[address] [id number] Lab Director: Jimenez Pruett MD Tot Prot. Conc. <6 Normal [facility] Comment on above: Result Comment: No n ormal range established. Performed By: #### R ENP, UAX, CBC, URI, URTPRT, UMICAO, MG ####[facility] [place], [place] [id number] Lab Director: Eder Herrera MD#### PTHNCA ####[facility] [address] [place] [address] Lab Director: Jimenez Pruett MD TP/Cre Ratio Can not be calculated Normal 0.00-0.20 [facility] Comment on above: Performed By: #### R ENP, UAX, CBC, URI, URTPRT, UMICAO, MG ####[facility] [place] [address] Lab Director: Eder Herrera MD#### PTHNCA ####[facility] [place], [place] 759[address]8 lab Director: Jimenez Pruett MD Renal Function Panelon 11-01 Albumin [Mass/Vol] 4.1 g/dL 3.5 - 5.2 g/dL [facility] Anion gap [Moles/Vol] 12 mmol/L 9 - 16 mmol/L [facility] Calcium [Mass/Vol] 10 mg/dL 8.6 - 10. 4 mg/dL [facility] Chloride [Moles/Vol] 102 mmol/L 98 - 10 7 mmol/L [facility] CO2 [Moles/Vol] 23 mmol/L 20 - 31 mmol/L [facility] Creatinine [Mass/Vol] 1.6 mg/dL High 0.70 - 1.20 mg/dL [facility] Est, Glom Filt Rate 49 Low - PINF [facility] Comment on above: These results are not intended for use in patients <18 years of age. eGFR results are calculated without a race factor using the 2020 CKD-EPI equation. Careful clinical correlation is recommended, particularly when comparing to results calculated using previous equations. The CKD-EPI equation is less accurate in patients with extremes of muscle mass, extra-renal metabolism of creatine, excessive creatine ingestion, or following therapy that affects renal tubular secretion. Glucose [Mass/Vol] 183 mg/dL High 74 - 99 mg/dL [facility] Interpretation and review of laboratory results Abnormal [facility] Phosphate [Mass/Vol] 3.2 mg/dL 2.5 - 4 .5 mg/dL [facility] Potassium [Moles/Vol] 4.7 mmol/L 3.7 - 5.3 mmol/L [facility] Sodium [Moles/Vol] 137 mmol/L 136 - 145 mmol/L [facility] Urea nitrogen [Mass/Vol] 30 mg/dL High 8 - 23 mg/dL [facility] Urea nitrogen/Creatinine [Mass ratio] 19 mg/mg 9 - 20 [facility] Albumin [Mass/Vol] 4.1 g/dL Normal 3.5-5.2 [facility] Comment on above: Performed By: #### R ENP, UAX, CBC, URI, URTPRT, UMICAO, MG ####[address] [place] [address] lab Director: Eder Herrera MD#### PTHNCA ####[address] [id number] Lab Director: Jimenez Pruett MD Anion gap [Moles/Vol] 12 mmol/L Normal 9-16 [facility] Comment on above: Performed By: #### R ENP, UAX, CBC, URI, URTPRT, UMICAO, MG ####[address] [place] [address] lab Director: Eder Herrera MD#### PTHNCA ####[address] [id number] lab Director: Jimenez Pruett MD BUN/CRE Ratio 19 Normal 9-20 [facility] Comment on above: Performed By: #### R ENP, UAX, CBC, URI, URTPRT, UMICAO, MG ####[address] [place] [address] lab Director: Eder Herrera MD#### PTHNCA ####[address] [id number] Lab Director: Jimenez Pruett MD Calcium [Mass/Vol] 10.0 mg/dL Normal 8.6-10.4 [facility] Comment on above: Performed By: #### R ENP, UAX, CBC, URI, URTPRT, UMICAO, MG ####[address] [place], [place] [id number] Lab Director: Eder Herrera MD#### PTHNCA ####[address] 1994408 Lab Director: Jimenez Pruett MD Chloride [Moles/Vol] 102 mmol/L Normal 98-107 [facility] Comment on above: Performed By: #### R ENP, UAX, CBC, URI, URTPRT, UMICAO, MG ####[address] [place] 9776783 Lab Director: Eder Herrera MD#### PTHNCA ####[address] [address] Lab Director: Jimenez Pruett MD CO2 [Moles/Vol] 23 mmol/L Normal 20-31 [facility] Comment on above: Performed By: #### R ENP, UAX, CBC, URI, URTPRT, UMICAO, MG ####[address] [place], [place] 3138783 Lab Director: dEer Herrera MD#### PTHNCA ####[address] [address] Lab Director: Jimenez Pruett MD Creatinine [Mass/Vol] 1.6 mg/dL High 0.70-1.20 [facility] Comment on above: Performed By: #### R ENP, UAX, CBC, URI, URTPRT, UMICAO, MG ####[address] [place] [address] lab Director: Eder Herrera MD#### PTHNCA ####[address] [place], [place] 0264508 Lab Director: Jimenez Pruett MD GFR/1.73 sq M.predicted among non-blacks MDRD (S/P/Bld) [Vol rate/Area] 49 mL/min/{1.73_m2} Low >60 [facility] Comment on above: Result Comment: Thes e results are not intended for use in patients <18 years of age.eGFR results are calculated without a race factor using the 2020 CKD-EPI equation.Careful clinical correlation is recommended, particularly when comparing to results calculated using previous equations.The CKD-EPI equation is less accurate in patients with extremes of muscle mass, extra-renal metabolism of creatine, excessive creatine ingestion, or following therapy that affects renal tubular secretion. Performed By: #### R ENP, UAX, CBC, URI, URTPRT, UMICAO, MG ####[address] [place] [id number] lab Director: Eder Herrera MD#### PTHNCA ####[place] [phone] Lab Director: Jimenez Pruett MD Glucose [Mass/Vol] 183 mg/dL High 74-99 [facility] Comment on above: Performed By: #### R ENP, UAX, CBC, URI, URTPRT, UMICAO, MG ####[address] [place] [id number] lab Director: Eder Herrera MD#### PTHNCA ####[address] [phone] Lab Director: Jimenez Pruett MD Phosphorus, Inorg. 3.2 mg/dL Normal 2.5-4.5 [facility] Comment on above: Performed By: #### R ENP, UAX, CBC, URI, URTPRT, UMICAO, MG ####[address] [place] [address] Lab Director: Eder Herrera MD#### PTHNCA ####[address] [place] [address] Lab Director: Jimenez Pruett MD Potassium [Moles/Vol] 4.7 mmol/L Normal 3.7-5.3 [facility] Comment on above: Performed By: #### R ENP, UAX, CBC, URI, URTPRT, UMICAO, MG ####[address] [place], [place] 1209283 Lab Director: Eder Herrera MD#### PTHNCA ####[address] [phone] Director: Jimenez Pruett MD Sodium [Moles/Vol] 137 mmol/L Normal 136-145 [facility] Comment on above: Performed By: #### R ENP, UAX, CBC, URI, URTPRT, UMICAO, MG ####[address] , [place] [id number] Lab Director: Eder Herrera MD#### PTHNCA ####[address] [address] Lab Director: Jimenez Pruett MD Urea nitrogen [Mass/Vol] 30 mg/dL High 8-23 [facility] Comment on above: Performed By: #### R ENP, UAX, CBC, URI, URTPRT, UMICAO, MG ####[address] [place], [place] 2023483 Lab Director: Eder Herrera MD#### PTHNCA ####[address] [place] [address] Lab Director: Jimenez Pruett MD UA w/Reflex Cultureon 2024 Bilirubin, SemiQt,Ur Negative Normal NEG [facility] Comment on above: Performed By: #### R ENP, UAX, CBC, URI, URTPRT, UMICAO, MG ####[facility] [place], [place] 9677383 Lab Director: Eder Herrera MD#### PTHNCA ####[address] [phone] Lab Director: Jimenez Pruett MD Blood, Urine Negative Normal NEG [facility] Comment on above: Performed By: #### R ENP, UAX, CBC, URI, URTPRT, UMICAO, MG ####[address] [place], [place] 5891183 lab Director: Eder Herrera MD#### PTHNCA ####[address] [phone] Lab Director: Jimenez Pruett MD Clarity (U) Clear Normal CLEAR [facility] Comment on above: Performed By: #### R ENP, UAX, CBC, URI, URTPRT, UMICAO, MG ####[address] [place], [place] 9270383 Lab Director: Eder Herrera MD#### PTHNCA ####[address] [address] Lab Director: Jimenez Pruett MD Color (U) Yellow Normal YEL [facility] Comment on above: Performed By: #### R ENP, UAX, CBC, URI, URTPRT, UMICAO, MG ####[address] [place], [place] 6375783 lab Director: Eder Herrera MD#### PTHNCA ####[address] [phone] Lab Director: Jimenez Pruett MD Glucose Ql (U) 3+ mg/dL Abnormal NEG [facility] Comment on above: Performed By: #### R ENP, UAX, CBC, URI, URTPRT, UMICAO, MG ####[address] [place], [place] 1491883 Lab Director: Eder Herrera MD#### PTHNCA ####[address] [phone] Lab Director: Jimenez Pruett MD Ketones Ql (U) Negative Normal NEG [facility] Comment on above: Performed By: #### R ENP, UAX, CBC, URI, URTPRT, UMICAO, MG ####[address] [place], [place] 3919083 Lab Director: Eder Herrera MD#### PTHNCA ####[address] [phone] Lab Director: Jimenez Pruett MD Leukocyte esterase Test strip Ql (U) Negative Normal NEG [facility] Comment on above: Performed By: #### R ENP, UAX, CBC, URI, URTPRT, UMICAO, MG ####[address] [place], [place] 7433683 Lab Director: Eder Herrera MD#### PTHNCA ####[address] [address] Lab Director: Jimenez Pruett MD Nitrite,Ur Negative Normal NEG [facility] Comment on above: Performed By: #### R ENP, UAX, CBC, URI, URTPRT, UMICAO, MG ####[address] [place], [place] 7811083 Lab Director: Eder Herrera MD#### PTHNCA ####[address] [address] Lab Director: Jimenez Pruett MD PH,Ur 6.0 Normal 5.0-9.0 [facility] Comment on above: Performed By: #### R ENP, UAX, CBC, URI, URTPRT, UMICAO, MG ####[address] [place], [place] 6444383 Lab Director: Eder Herrera MD#### PTHNCA ####[address] [address] Lab Director: Jimenez Pruett MD Protein Ql (U) Negative Normal NEG [facility] Comment on above: Performed By: #### R ENP, UAX, CBC, URI, URTPRT, UMICAO, MG ####[address] [place] [address] [facility] Director: Eder Herrera MD#### PTHNCA ####[place] [address] Lab Director: Jimenez Pruett MD Spec. [place],Ur <1.005 Low 1.010-1.020 [facility] Comment on above: Performed By: #### R ENP, UAX, CBC, URI, URTPRT, UMICAO, MG ####[address] [place] [address] Lab Director: Eder Herrera MD#### PTHNCA ####[address] [address] Lab Director: Jimenez Pruett MD Urobilinogen,Ur Normal Normal 0.0-1.0 [facility] Comment on above: Performed By: #### R ENP, UAX, CBC, URI, URTPRT, UMICAO, MG ####[address] [place] 9776783 lab Director: Eder Herrera MD#### PTHNCA ####[facility] [address] [place] [address] lab Director: Jimenez Pruett MD Uric Acidon 11-01-2024 Urate [Mass/Vol] 4.8 mg/dL 3.4 - 7.0 mg/dL [facility] Urate [Mass/Vol] 4.8 mg/dL Normal 3.4-7.0 [facility] Comment on above: Performed By: #### R ENP, UAX, CBC, URI, URTPRT, UMICAO, MG ####[facility] [place] [address] lab Director: Eder Herrera MD#### PTHNCA ####[facility] [address] [place] [address] lab Director: Jimenez Pruett MD Urinalysis with Reflex to Cu ltureon 11-01-2024 Bilirubin Ql (U) Negative NEGATIVE [facility] Clarity (U) Clear Clear [facility] Color (U) Yellow Yellow [facility] Glucose Test strip (U) [Mass/Vol] 3+ Abnormal NEGATIVE mg/dL [facility] Hemoglobin Auto test strip Ql (U) Negative NEGATIVE [facility] Interpretation and review of laboratory results Abnormal [facility] Ketones (U) [Mass/Vol] Negative NEGAT PAO mg/dL [facility] Leukocyte esterase Test strip Ql (U) Negative NEGATIVE [facility] Nitrite Ql (U) Negative NEGATIVE [facility] pH (U) 6 [pH] 5.0 - 9.0 [facility] Protein (U) [Mass/Vol] Negative NEGAT PAO mg/dL [facility] Specific gravity (U) [Rel density] Low 1.010 - 1.020 [facility] Urobilinogen Qn (U) Normal 0.0 - 1. 0 EU/dL [facility] Urinalysis,Microon 5 Epithelial cells LM Ql (Urine sed) 10 TO 20 Normal 0-5 [facility] Comment on above: Performed By: #### R ENP, UAX, CBC, URI, URTPRT, UMICAO, MG ####[facility] [place], [place] [id number] Lab Director: Eder Herrera MD#### PTHNCA ####[address] [phone] Lab Director: Jimenez Pruett MD Urine RBC's 0 TO 2 Normal 0-2 [facility] Comment on above: Performed By: #### R ENP, UAX, CBC, URI, URTPRT, UMICAO, MG ####[facility] [place] [address] lab Director: Eder Herrera MD#### PTHNCA ####[address] [phone] Lab Director: Jimenez Pruett MD Urine WBC's 2 TO 5 Normal 0-5 [facility] Comment on above: Performed By: #### R ENP, UAX, CBC, URI, URTPRT, UMICAO, MG ####[address] [place] [address] Lab Director: Eder Herrera MD#### PTHNCA ####[address] [phone] Lab Director: Jimenez Pruett MD MRI FOOT RIGHT WO CONTRASTon 10-23-2024 MRI FOOT RIGHT WO CONTRAST Normal [facility] Basic Metabolic Panelon 09-23 Anion gap [Moles/Vol] 9 mmol/L 9 - 16 mmol/L [facility] Calcium [Mass/Vol] 10.6 mg/dL High 8.6 - 10. 4 mg/dL [facility] Chloride [Moles/Vol] 104 mmol/L 98 - 10 7 mmol/L [facility] CO2 [Moles/Vol] 25 mmol/L 20 - 31 mmol/L [facility] Creatinine [Mass/Vol] 1.8 mg/dL High 0.70 - 1.20 mg/dL [facility] Yuliet Lancastert Rate 41 Low - PINF [facility] Comment on above: These results are not intended for use in patients <18 years of age. eGFR results are calculated without a race factor using the 2020 CKD-EPI equation. Careful clinical correlation is recommended, particularly when comparing to results calculated using previous equations. The CKD-EPI equation is less accurate in patients with extremes of muscle mass, extra-renal metabolism of creatine, excessive creatine ingestion, or following therapy that affects renal tubular secretion. Glucose [Mass/Vol] 90 mg/dL 74 - 99 mg/dL [facility] Potassium [Moles/Vol] 5.5 mmol/L High 3.7 - 5.3 mmol/L [facility] Sodium [Moles/Vol] 138 mmol/L 136 - 145 mmol/L [facility] Urea nitrogen [Mass/Vol] 33 mg/dL High 8 - 23 mg/dL [facility] Urea nitrogen/Creatinine [Mass ratio] 18 mg/mg - 20 [facility] Basic Metabolic Profon 10-20 Anion gap [Moles/Vol] 9 mmol/L Normal 9-16 [facility] Comment on above: Performed By: #### B COMMUNITY DEVELOPMENT TECHNICIAN, BMP ####[facility] [place] [address] Lab Director: Eder Herrera MD BUN/CRE Ratio 18 Normal -20 [facility] Comment on above: Performed By: #### B COMMUNITY DEVELOPMENT TECHNICIAN, BMP ####[facility] [place] [address] Lab Director: Eder Herrera MD Calcium [Mass/Vol] 10.6 mg/dL High 8.6-10.4 [facility] Comment on above: Performed By: #### B COMMUNITY DEVELOPMENT TECHNICIAN, BMP ####[facility] [place] , [place] 1640283 Lab Director: Eder Herrera MD Chloride [Moles/Vol] 104 mmol/L Normal 98-107 [facility] Comment on above: Performed By: #### B COMMUNITY DEVELOPMENT TECHNICIAN, BMP ####[facility] [place] , [place] [id number] Lab Director: Eder Herrera MD CO2 [Moles/Vol] 25 mmol/L Normal 20-31 [facility] Comment on above: Performed By: #### B COMMUNITY DEVELOPMENT TECHNICIAN, BMP ####[facility] [place] [address] Lab Director: Eder Herrera MD Creatinine [Mass/Vol] 1.8 mg/dL High 0.70-1.20 [facility] Comment on above: Performed By: #### B COMMUNITY DEVELOPMENT TECHNICIAN, BMP ####[address] , [place] [id number] Lab Director: Eder Herrera MD GFR/1.73 sq M.predicted among non-blacks MDRD (S/P/Bld) [Vol rate/Area] 41 mL/min/{1.73_m2} Low >60 [facility] Comment on above: Result Comment: Thes e results are not intended for use in patients <18 years of age.eGFR results are calculated without a race factor using the 2020 CKD-EPI equation.Careful clinical correlation is recommended, particularly when comparing to results calculated using previous equations.The CKD-EPI equation is less accurate in patients with extremes of muscle mass, extra-renal metabolism of creatine, excessive creatine ingestion, or following therapy that affects renal tubular secretion. Performed By: #### B COMMUNITY DEVELOPMENT TECHNICIAN, BMP ####[facility] [place] , [place] 0931583 Lab Director: Eder Herrera MD Glucose [Mass/Vol] 90 mg/dL Normal 74-99 [facility] Comment on above: Performed By: #### B COMMUNITY DEVELOPMENT TECHNICIAN, BMP ####[facility] [place] , [place] 1945083 Lab Director: Eder Herrera MD Potassium [Moles/Vol] 5.5 mmol/L High 3.7-5.3 [facility] Comment on above: Performed By: #### B COMMUNITY DEVELOPMENT TECHNICIAN, BMP ####[facility] [place] [address] Lab Director: dEer Herrera MD Sodium [Moles/Vol] 138 mmol/L Normal 136-145 [facility] Comment on above: Performed By: #### B COMMUNITY DEVELOPMENT TECHNICIAN, BMP ####[facility] [place] [address] Lab Director: Eder Herrera MD Urea nitrogen [Mass/Vol] 33 mg/dL High 8-23 [facility] Comment on above: Performed By: #### B COMMUNITY DEVELOPMENT TECHNICIAN, BMP ####[facility] [place] [address] Lab Director: Eder Herrera MD Brain Natri. Peptideon 10-20 Natriuretic peptide B (Bld) [Mass/Vol] 269 pg/mL High 0-125 [facility] Comment on above: Performed By: #### B COMMUNITY DEVELOPMENT TECHNICIAN, BMP ####[address] , [place] [id number] Lab Director: Eder Herrera MD Brain Natriuretic Peptideon 10-20-2024 Natriuretic peptide B (Bld) [Mass/Vol] 269 pg/mL High 0 - 125 pg/mL [facility] No Panel Informationon 10-20 Interpretation and review of laboratory results Abnormal [facility] Hemoglobin A1Con 10-04-2024 Average glucose Estimated from glycated hemoglobin (Bld) [Mass/Vol] 169 mg/dL [facility] Comment on above: The ADA and AACC rec ommend providing the estimated average glucose result to permit better patient understanding of their HBA1c result. HbA1c (Bld) [Mass fraction] 7.5 % High 4.0 - 6.0 % [facility] Interpretation and review of laboratory results Abnormal [facility] Glucose [Mass/Vol] 169 mg/dL Normal [facility] Comment on above: Result Comment: The ADA and AACC recommend providing the estimated average glucose result to permit better patient understanding of their HBA1c result. Performed By: #### G LYHGB ####[address] [place], [place] 7547108 lab Director: Jimenez Pruett MD HbA1c (Bld) [Mass fraction] 7.5 % High 4.0-6.0 [facility] Comment on above: Performed By: #### G LYHGB ####[facility] [address] [place], [place] 3533508 lab Director: Jimenez Pruett MD PSA Screeningon 10-04-2024 Prostate specific Ag [Mass/Vol] 0.51 ng/mL 0.00 - 4.00 ng/mL [facility] Comment on above: The Cyndi ECLIA as say is used. Results obtained with different assay methods cannot be used interchangeably. [facility] PSA, Screeningon 10-04-2024 Prostatic Spec. Ag 0.51 ng/mL Normal 0.00-4.00 [facility] Comment on above: Result Comment: The Cyndi ECLIA assay is used. Results obtained with different assay methods cannot be used interchangeably. Performed By: #### P SAS ####[facility] [address] [place], [place] 2736508 lab Director: Jimenez Pruett MD CBCon 09-20-2024 Erythrocyte distribution width (RBC) [Ratio] 13.4 % 11.8 - 14.4 % [facility] Hematocrit (Bld) [Volume fraction] 35.8 % Low 40.7 - 50.3 % [facility] Hemoglobin (Bld) [Mass/Vol] 11.7 g/dL Low 13.0 - 17.0 g/dL [facility] Interpretation and review of laboratory results Abnormal [facility] MCH (RBC) [Entitic mass] 30.5 pg 25.2 - 33.5 pg [facility] MCHC (RBC) [Mass/Vol] 32.7 g/dL 28.4 - 34.8 g/dL [facility] MCV (RBC) [Entitic vol] 93.5 fL 82.6 - 102.9 fL [facility] Nucleated RBC/100 WBC (Bld) [Ratio] 0 % 0.0 per 100 WBC [facility] Platelet mean volume (Bld) [Entitic vol] 11 fL 8.1 - 13.5 fL [facility] Platelets (Bld) [#/Vol] 292 10*3/uL [facility] RBC (Bld) [#/Vol] 3.83 10*6/uL Low 4.21 - 5.7 7 m/uL [facility] WBC other (Bld) [#/Vol] 7.9 B [facility] Erythrocyte distribution width (RBC) [Ratio] 13.4 % Normal 11.8-14.4 [facility] Comment on above: Performed By: #### P THNCA ####[place] [address] Lab Director: Jimenez Pruett MD#### VALARIE, MG, URI, CBC ####[address] [place] 9776783 Lab Director: Eder Herrera MD Hematocrit (Bld) [Volume fraction] 35.8 % Low 40.7-50.3 [facility] Comment on above: Performed By: #### P THNCA ####[facility] [address] [place] [address] Lab Director: Jimenez Pruett MD#### RENP, MG, URI, CBC ####[address] [place] [address] Lab Director: Eder Herrera MD Hemoglobin (Bld) [Mass/Vol] 11.7 g/dL Low 13.0-17.0 [facility] Comment on above: Performed By: #### P THNCA ####[address] [address] Lab Director: Jimenez Pruett MD#### RENP, MG, URI, CBC ####[address] [place] 9776783 lab Director: Eder Herrera MD MCH (RBC) [Entitic mass] 30.5 pg Normal 25.2-33.5 [facility] Comment on above: Performed By: #### P THNCA ####[address] [address] Lab Director: Jimenez Pruett MD#### RENP, MG, URI, CBC ####[address] [place] 9776783 lab Director: Eder Herrera MD MCHC (RBC) [Mass/Vol] 32.7 g/dL Normal 28.4-34.8 [facility] Comment on above: Performed By: #### P THNCA ####[address] [address] Lab Director: Jimenez Pruett MD#### RENP, MG, URI, CBC ####[address] [place] 9776783 Lab Director: Eder Herrera MD MCV (RBC) [Entitic vol] 93.5 fL Normal 82.6-102.9 M [facility] Comment on above: Performed By: #### P THNCA ####[address] [address] Lab Director: Jimenez Pruett MD#### RENP, MG, URI, CBC ####[address] [place] 9776783 Lab Director: Eder Herrera MD NRBC Automated 0.0 per 100 WBC Normal 0.0 [facility] Comment on above: Performed By: #### P THNCA ####[address] [place] [address] Lab Director: Jimenez Pruett MD#### RENP, MG, URI, CBC ####[address] [place] [address] Lab Director: Eder Herrera MD Platelet mean volume (Bld) [Entitic vol] 11.0 fL Normal 8.1-13.5 [facility] Comment on above: Performed By: #### P THNCA ####[address] [address] Lab Director: Jimenez Pruett MD#### RENP, MG, URI, CBC ####[address] [place] [address] Lab Director: Eder Herrera MD Platelets (Bld) [#/Vol] 292 10*3/uL Normal 138-453 [facility] Comment on above: Performed By: #### P THNCA ####[address] [address] Lab Director: Jimenez Pruett MD#### RENP, MG, URI, CBC ####[address] [place] 9776783 Lab Director: Eder Herrera MD RBC (Bld) [#/Vol] 3.83 10*6/uL Low 4.21-5.77 [facility] Comment on above: Performed By: #### P THNCA ####[address] [address] Lab Director: Jimenez Pruett MD#### RENP, MG, URI, CBC ####[address] [place] [address] Lab Director: Eder Herrera MD WBC (Bld) [#/Vol] 7.9 10*3/uL Normal 3.5-11.3 [facility] Comment on above: Performed By: #### P THNCA ####[facility] [address] [place] [address] Lab Director: Jimenez Pruett MD#### RENP, MG, URI, CBC ####[facility] [place] [address] Lab Director: Eder Herrera MD Magnesiumon 09-20-2024 Magnesium [Mass/Vol] 2.2 mg/dL 1.6 - 2 .4 mg/dL [facility] Magnesium [Mass/Vol] 2.2 mg/dL Normal 1.6-2.4 [facility] Comment on above: Performed By: #### P THNCA ####[address] [place] [address] Lab Director: Jimenez Pruett MD#### RENP, MG, URI, CBC ####[facility] [place] [address] Lab Director: Eder Herrera MD Microscopic Urinalysison Epithelial cells LM.HPF (Urine sed) [#/Area] None [facility] RBC LM.HPF (Urine sed) [#/Area] None [facility] WBC LM.HPF (Urine sed) [#/Area] None [facility] No Panel Informationon 09-20 [facility] PTH, [place]on 09-20-2024 Interpretation and review of laboratory results Abnormal [facility] Parathyrin.intact [Mass/Vol] 120.0 pg/mL High 17.9 - 58.6 pg/mL [facility] PTH, Intact 120.0 pg/mL High 17.9-58.6 [facility] Comment on above: Performed By: #### P THNCA ####[facility] [address] [place] [address] Lab Director: Jimenez Pruett MD#### RENP, MG, URI, CBC ####[address] [place], [place] 2289783 Lab Director: Eder Herrera MD Protein / creatinine ratio, urineon 09-20-2024 Creatinine (U) [Mass/Vol] 43.5 mg/dL 39.0 - 259.0 mg/dL [facility] Protein (U) [Mass/Vol] 7 mg/dL [facility] Comment on above: No normal range esta blished. Urine Total Protein Creatinine Ratio 0.16 0.00 - 0.20 [facility] [facility] Protein,Tot,[place] Uron 2024 Creatinine [Mass/Vol] 43.5 mg/dL Normal 39.0-259.0 [facility] Comment on above: Performed By: #### BOLIVAR DAVIS URTPRT ####[address] , [facility]83 Lab Director: Eder Herrera MD Tot Prot. Conc. 7 mg/dL Normal [facility] Comment on above: Result Comment: No n ormal range established. Performed By: #### BOLIVAR DAVIS URTPRT ####[address] [place], [place] [id number] Lab Director: Eder Herrera MD TP/Cre Ratio 0.16 Normal 0.00-0.20 [facility] Comment on above: Performed By: #### U AXBOLIVAR URTPRT ####[address] , [place] [id number] Lab Director: Eder Herrera MD Renal Function Panelon 09-20 Albumin [Mass/Vol] 4 g/dL 3.5 - 5.2 g/dL [facility] Anion gap [Moles/Vol] 12 mmol/L 9 - 16 mmol/L [facility] Calcium [Mass/Vol] 11 mg/dL High 8.6 - 10. 4 mg/dL [facility] Chloride [Moles/Vol] 99 mmol/L 98 - 10 7 mmol/L [facility] CO2 [Moles/Vol] 24 mmol/L 20 - 31 mmol/L [facility] Creatinine [Mass/Vol] 2.1 mg/dL High 0.70 - 1.20 mg/dL [facility] Est, Glom Filt Rate 34 Low - PINF [facility] Comment on above: These results are not intended for use in patients <18 years of age. eGFR results are calculated without a race factor using the 2020 CKD-EPI equation. Careful clinical correlation is recommended, particularly when comparing to results calculated using previous equations. The CKD-EPI equation is less accurate in patients with extremes of muscle mass, extra-renal metabolism of creatine, excessive creatine ingestion, or following therapy that affects renal tubular secretion. Glucose [Mass/Vol] 169 mg/dL High 74 - 99 mg/dL [facility] Interpretation and review of laboratory results Abnormal [facility] Phosphate [Mass/Vol] 2.5 mg/dL 2.5 - 4 .5 mg/dL [facility] Potassium [Moles/Vol] 4.5 mmol/L 3.7 - 5.3 mmol/L [facility] Sodium [Moles/Vol] 135 mmol/L Low 136 - 145 mmol/L [facility] Urea nitrogen [Mass/Vol] 45 mg/dL High 8 - 23 mg/dL [facility] Urea nitrogen/Creatinine [Mass ratio] 21 mg/mg High 9 - 20 [facility] Albumin [Mass/Vol] 4.0 g/dL Normal 3.5-5.2 [facility] Comment on above: Performed By: #### P THNCA ####[facility] [address] [place] [address] Lab Director: Jimenez Pruett MD#### RENP, MG, URI, CBC ####[facility] [place] [address] Lab Director: Eder Herrera MD Anion gap [Moles/Vol] 12 mmol/L Normal 9-16 [facility] Comment on above: Performed By: #### P THNCA ####[facility] [place] [address] Lab Director: Jimenez Pruett MD#### RENP, MG, URI, CBC ####[address] [place], [place] [address] Lab Director: Eder Herrera MD BUN/CRE Ratio 21 High 9-20 [facility] Comment on above: Performed By: #### P THNCA ####[address] [address] Lab Director: Jimenez Pruett MD#### RENP, MG, URI, CBC ####[address] [place], [place] [address] Lab Director: Eder Herrera MD Calcium [Mass/Vol] 11.0 mg/dL High 8.6-10.4 [facility] Comment on above: Performed By: #### P THNCA ####[address] [address] Lab Director: Jimenez Pruett MD#### RENP, MG, URI, CBC ####[address] [id number] Lab Director: Eder Herrera MD Chloride [Moles/Vol] 99 mmol/L Normal 98-107 [facility] Comment on above: Performed By: #### P THNCA ####[address] [address] Lab Director: Jimenez Pruett MD#### RENP, MG, URI, CBC ####[address] [place] [address] Lab Director: Eder Herrera MD CO2 [Moles/Vol] 24 mmol/L Normal 20-31 [facility] Comment on above: Performed By: #### P THNCA ####[facility] [place] [address] Lab Director: Jimenez Pruett MD#### RENP, MG, URI, CBC ####[address] [place], [place] [address] Lab Director: Eder Herrera MD Creatinine [Mass/Vol] 2.1 mg/dL High 0.70-1.20 [facility] Comment on above: Performed By: #### P THNCA ####[address] [address] Lab Director: Jimenez Pruett MD#### RENP, MG, URI, CBC ####[address] [place], [place] [address] Lab Director: Eder Herrera MD GFR/1.73 sq M.predicted among non-blacks MDRD (S/P/Bld) [Vol rate/Area] 34 mL/min/{1.73_m2} Low >60 [facility] Comment on above: Result Comment: Thes e results are not intended for use in patients <18 years of age.eGFR results are calculated without a race factor using the 2020 CKD-EPI equation.Careful clinical correlation is recommended, particularly when comparing to results calculated using previous equations.The CKD-EPI equation is less accurate in patients with extremes of muscle mass, extra-renal metabolism of creatine, excessive creatine ingestion, or following therapy that affects renal tubular secretion. Performed By: #### P THNCA ####[facility] [address] [place] [address] Lab Director: Jimenez Pruett MD#### RENP, MG, URI, CBC ####[address] [place], [place] [address] Lab Director: Eder Herrera MD Glucose [Mass/Vol] 169 mg/dL High 74-99 [facility] Comment on above: Performed By: #### P THNCA ####[address] [place] [address] Lab Director: Jimenez Pruett MD#### RENP, MG, URI, CBC ####[address] [place] [address] Lab Director: Eder Herrera MD Phosphorus, Inorg. 2.5 mg/dL Normal 2.5-4.5 [facility] Comment on above: Performed By: #### P THNCA ####[address] [address] Lab Director: Jimenez Pruett MD#### RENP, MG, URI, CBC ####[address] [place] [address] Lab Director: Eder Herrera MD Potassium [Moles/Vol] 4.5 mmol/L Normal 3.7-5.3 [facility] Comment on above: Performed By: #### P THNCA ####[address] [address] Lab Director: Jimenez Pruett MD#### RENSpring, MG, URI, CBC ####[address] [place], [place] [address] Lab Director: Eder Herrera MD Sodium [Moles/Vol] 135 mmol/L Low 136-145 [facility] Comment on above: Performed By: #### P THNCA ####[address] [address] Lab Director: Jimenez Pruett MD#### RENP, MG, URI, CBC ####[address] [place], [place] [address] Lab Director: Eder Herrera MD Urea nitrogen [Mass/Vol] 45 mg/dL High 8-23 [facility] Comment on above: Performed By: #### P THNCA ####[address] [place], [place] [address] Lab Director: Jimenez Pruett MD#### RENP, MG, URI, CBC ####[address] , [place] [id number] Lab Director: Eder Herrera MD UA w/Reflex Cultureon 2024 Bilirubin, SemiQt,Ur Negative Normal NEG [facility] Comment on above: Performed By: #### U AX, UMICAO, URTPRT ####[address] [place] [address] Lab Director: Eder Herrera MD Blood, Urine Negative Normal NEG [facility] Comment on above: Performed By: #### U AX, UMICAO, URTPRT ####[address] [place] [address] Lab Director: Eder Herrera MD Clarity (U) Clear Normal CLEAR [facility] Comment on above: Performed By: #### U AX, UMICAO, URTPRT ####[address] , [place] [id number] Lab Director: Eder Herrera MD Color (U) Yellow Normal YEL [facility] Comment on above: Performed By: #### U AX, UMICAO, URTPRT ####[address] [place] [address] Lab Director: Eder Herrera MD Glucose Ql (U) 3+ mg/dL Abnormal NEG [facility] Comment on above: Performed By: #### U AX, UMICAO, URTPRT ####[address] , [place] [id number] Lab Director: Eder Herrera MD Ketones Ql (U) Negative Normal NEG [facility] Comment on above: Performed By: #### U AX, UMICAO, URTPRT ####[address] [place] [address] Lab Director: Eder Herrera MD Leukocyte esterase Test strip Ql (U) Negative Normal NEG [facility] Comment on above: Performed By: #### U AX, UMICAO, URTPRT ####[address] [place] [address] [facility] Director: Eder Herrera MD Nitrite,Ur Negative Normal NEG [facility] Comment on above: Performed By: #### U AX, UMICAO, URTPRT ####[address] [place] [address] lab Director: Eder Herrera MD PH,Ur 6.0 Normal 5.0-9.0 [facility] Comment on above: Performed By: #### U AX, UMICAO, URTPRT ####[address] [place] [address] lab Director: Eder Herrera MD Protein Ql (U) Negative Normal NEG [facility] Comment on above: Performed By: #### U AX, UMICAO, URTPRT ####[address] [place] [address] lab Director: Eder Herrera MD Spec. [place],Ur 1.010 Normal 1.010-1.020 [facility] Comment on above: Performed By: #### U AX, UMICAO, URTPRT ####[address] [place] [address] lab Director: Eder Herrera MD Urobilinogen,Ur Normal Normal 0.0-1.0 [facility] Comment on above: Performed By: #### U AX, UMICAO, URTPRT ####[address] [place] [address] lab Director: Eder Herrera MD Uric Acidon 09-20-2024 Urate [Mass/Vol] 5.3 mg/dL 3.4 - 7.0 mg/dL [facility] Urate [Mass/Vol] 5.3 mg/dL Normal 3.4-7.0 [facility] Comment on above: Performed By: #### P THNCA ####[facility] [address] [place], [place] [address] lab Director: Jimenez Pruett MD#### RENP, MG, URI, CBC ####[facility] [place] [address] lab Director: Eder Herrera MD Urinalysis with Reflex to Cu ltureon 09-20-2024 Bilirubin Ql (U) Negative NEGATIVE [facility] Clarity (U) Clear Clear [facility] Color (U) Yellow Yellow [facility] Glucose Test strip (U) [Mass/Vol] 3+ Abnormal NEGATIVE mg/dL [facility] Hemoglobin Auto test strip Ql (U) Negative NEGATIVE [facility] Interpretation and review of laboratory results Abnormal [facility] Ketones (U) [Mass/Vol] Negative NEGAT PAO mg/dL [facility] Leukocyte esterase Test strip Ql (U) Negative NEGATIVE [facility] Nitrite Ql (U) Negative NEGATIVE [facility] pH (U) 6 [pH] 5.0 - 9.0 [facility] Protein (U) [Mass/Vol] Negative NEGAT PAO mg/dL [facility] Specific gravity (U) [Rel density] 1.01 1.010 - 1.020 [facility] Urobilinogen Qn (U) Normal 0.0 - 1. 0 EU/dL [facility] Urinalysis,Microon 5 Epithelial cells LM Ql (Urine sed) None Normal 0-5 [facility] Comment on above: Performed By: #### U AX, UMICAO, URTPRT ####[facility] [place] [address] lab Director: Eder Herrera MD Urine RBC's None Normal 0-2 [facility] Comment on above: Performed By: #### U AX, UMICAO, URTPRT ####[facility] [place] [address] lab Director: Eder Herrera MD Urine WBC's None Normal 0-5 [facility] Comment on above: Performed By: #### U AX, UMICAO, URTPRT ####[facility] [place] [address] lab Director: Eder Herrera MD XR TOE RIGHT (MIN 2 VIEWS)on 09-09-2024 XR TOE RIGHT (MIN 2 VIEWS) Normal [facility] Magnesiumon 08-23-2024 Magnesium [Mass/Vol] 2.2 mg/dL 1.6 - 2 .4 mg/dL [facility] Magnesium [Mass/Vol] 2.2 mg/dL Normal 1.6-2.4 [facility] Comment on above: Performed By: #### M G, RENP ####[address] [place] [address] lab Director: Eder Herrera MD No Panel Informationon 08-23 [facility] Renal Function Panelon 08-23 Albumin [Mass/Vol] 4.2 g/dL 3.5 - 5.2 g/dL [facility] Anion gap [Moles/Vol] 10 mmol/L 9 - 16 mmol/L [facility] Calcium [Mass/Vol] 10.5 mg/dL High 8.6 - 10. 4 mg/dL [facility] Chloride [Moles/Vol] 103 mmol/L 98 - 10 7 mmol/L [facility] CO2 [Moles/Vol] 24 mmol/L 20 - 31 mmol/L [facility] Creatinine [Mass/Vol] 1.6 mg/dL High 0.70 - 1.20 mg/dL [facility] Est, Glom Filt Rate 48 Low - PINF [facility] Comment on above: These results are not intended for use in patients <18 years of age. eGFR results are calculated without a race factor using the 2020 CKD-EPI equation. Careful clinical correlation is recommended, particularly when comparing to results calculated using previous equations. The CKD-EPI equation is less accurate in patients with extremes of muscle mass, extra-renal metabolism of creatine, excessive creatine ingestion, or following therapy that affects renal tubular secretion. Glucose [Mass/Vol] 147 mg/dL High 74 - 99 mg/dL [facility] Interpretation and review of laboratory results Abnormal [facility] Phosphate [Mass/Vol] 2.4 mg/dL Low 2.5 - 4 .5 mg/dL [facility] Potassium [Moles/Vol] 4.9 mmol/L 3.7 - 5.3 mmol/L [facility] Sodium [Moles/Vol] 137 mmol/L 136 - 145 mmol/L [facility] Urea nitrogen [Mass/Vol] 29 mg/dL High 8 - 23 mg/dL [facility] Urea nitrogen/Creatinine [Mass ratio] 18 mg/mg 9 - 20 [facility] Albumin [Mass/Vol] 4.2 g/dL Normal 3.5-5.2 [facility] Comment on above: Performed By: #### M G, RENP ####[address] [place] [address] lab Director: Eder Herrera MD Anion gap [Moles/Vol] 10 mmol/L Normal 9-16 [facility] Comment on above: Performed By: #### M G, RENP ####[facility] [place] [address] lab Director: Eder Herrera MD BUN/CRE Ratio 18 Normal 9-20 [facility] Comment on above: Performed By: #### M G, RENP ####[facility] [place] [address] lab Director: Eder Herrera MD Calcium [Mass/Vol] 10.5 mg/dL High 8.6-10.4 [facility] Comment on above: Performed By: #### M Yifan, RENP ####[facility] [place] , [place] [id number] Lab Director: Eder Herrera MD Chloride [Moles/Vol] 103 mmol/L Normal 98-107 [facility] Comment on above: Performed By: #### M G, RENP ####[facility] [place] [address] Lab Director: Eder Herrera MD CO2 [Moles/Vol] 24 mmol/L Normal 20-31 [facility] Comment on above: Performed By: #### M Yifan, RENP ####[address] [place] [address] Lab Director: Eder Herrera MD Creatinine [Mass/Vol] 1.6 mg/dL High 0.70-1.20 [facility] Comment on above: Performed By: #### Bettina Saha, RENP ####[address] [place] [address] Lab Director: Eder Herrera MD GFR/1.73 sq M.predicted among non-blacks MDRD (S/P/Bld) [Vol rate/Area] 48 mL/min/{1.73_m2} Low >60 [facility] Comment on above: Result Comment: Thes e results are not intended for use in patients <18 years of age.eGFR results are calculated without a race factor using the 2020 CKD-EPI equation.Careful clinical correlation is recommended, particularly when comparing to results calculated using previous equations.The CKD-EPI equation is less accurate in patients with extremes of muscle mass, extra-renal metabolism of creatine, excessive creatine ingestion, or following therapy that affects renal tubular secretion. Performed By: #### M Yifan, RENP ####[address] [place] [address] lab Director: Eder Herrera MD Glucose [Mass/Vol] 147 mg/dL High 74-99 [facility] Comment on above: Performed By: #### Bettina Saha, RENP ####[address] , [place] [address] Lab Director: Eder Herrera MD Phosphorus, Inorg. 2.4 mg/dL Low 2.5-4.5 [facility] Comment on above: Performed By: #### Bettina Saha, RENP ####[address] , [place] [address]83 Lab Director: Eder Herrera MD Potassium [Moles/Vol] 4.9 mmol/L Normal 3.7-5.3 [facility] Comment on above: Performed By: #### Bettina Saha, RENP ####[address] , [place] 6[address] Lab Director: Eder Herrera MD Sodium [Moles/Vol] 137 mmol/L Normal 136-145 [facility] Comment on above: Performed By: #### Bettina Saha, RENP ####[address] , [place] [address] Lab Director: Eder Herrera MD Urea nitrogen [Mass/Vol] 29 mg/dL High 8-23 [facility] Comment on above: Performed By: #### Bettina Saha, RENP ####[address] , [place] [address] Lab Director: Eder Herrera MD XR TOE RIGHT (MIN 2 VIEWS)on 08-20-2024 XR TOE RIGHT (MIN 2 VIEWS) Normal [facility] Cult,Woundon 08-19-2024 Cult,Wound Susceptible [facility] Comment on above: Performed By: #### W DC ####[address] [id number] Lab Director: Jimenez Pruett [address] , [place] [id number] lab Director: Eder Herrera MD Basophils Auto (Bld) [#/Vol] on 08-02-2024 Basophils (Bld) [#/Vol] Automated basoph il count 0.0-0.1 [facility] Basophils/100 WBC Auto (Bld) on 08-02-2024 Basophils/100 WBC (Bld) Automated basophil % 0. 2-2.0 [facility] Eosinophils/100 WBC Auto (Bl d)on 08-02-2024 Eosinophils/100 WBC (Bld) Automated eosinophil % 0.9-7.0 [facility] Erythrocyte distribution wid th Auto (RBC) [Ratio]on 08-02-2024 Erythrocyte distribution width (RBC) [Ratio] Erythrocyte distribution width [Ratio] by Automated count 11.0-15.0 [facility] Estimated glomerular filtrat ion rate (GFR) non- Americanon 08-02-2024 GFR/1.73 sq M.predicted among non-blacks MDRD (S/P/Bld) [Vol rate/Area] Estimated glomerular filtration rate (GFR) non- Low >=60 mL/min/1.73 m 2 [facility] Hematocrit Auto (Bld) [Volum e fraction]on 08-02-2024 Hematocrit (Bld) [Volume fraction] Hematocrit [Volume Fraction] of Blood by Automated count Low 42.0-54.0 [facility] Hemoglobin [Mass/volume] in Bloodon 08-02-2024 Hemoglobin (Bld) [Mass/Vol] Hemoglobin [Mass/volume] in Blood Low 14.0-18.0 [facility] Laboratory - Chemistry and C hemistry - challengeon 08-02-2024 Calcium [Mass/Vol] 8.4 mg/dL Low 8.5-10.1 [facility] Chloride [Moles/Vol] 99 mmol/L 98-107 [facility] CO2 [Moles/Vol] 27.6 mmol/L 21.0-32.0 [facility] Creatinine [Mass/Vol] 2.35 mg/dL High 0.70-1.30 [facility] GFR/1.73 sq M.predicted MDRD (S/P/Bld) [Vol rate/Area] 34 mL/min/{1.73_m2} Low >=60 mL/min/1.73 m 2 [facility] Glucose [Mass/Vol] 132 mg/dL High 74-106 [facility] Potassium [Moles/Vol] 3.7 mmol/L 3.5-5.1 [facility] Sodium [Moles/Vol] 135 mmol/L Low 136-145 [facility] Urea nitrogen [Mass/Vol] 68.0 mg/dL High 7.0-18.0 [facility] Urea nitrogen/Creatinine [Mass ratio] 28.9 mg/mg [facility] Laboratory - Hematology and Cell countson 08-02-2024 Immature granulocytes/100 WBC (Bld) 0.5 % 0.0-0.5 [facility] Leukocytes [#/volume] correc yaneth for nucleated erythrocytes in Blood by Automated counon 08-02-2024 WBC corrected for nucl RBC Auto (Bld) [#/Vol] Leukocytes [#/volume] corrected for nucleated erythrocytes in Blood by Automated coun 4.0-11.0 [facility] Lymphocytes Auto (Bld) [#/Vo l]on 08-02-2024 Lymphocytes (Bld) [#/Vol] Lymphocytes [#/volume] in Blood by Automated count 1.2-3.8 [facility] Lymphocytes/100 WBC Auto (Bl d)on 08-02-2024 Lymphocytes/100 WBC (Bld) Lymphocytes/100 leukocytes in Blood by Automated count 20.5-60.0 [facility] MCH Auto (RBC) [Entitic mass ]on 08-02-2024 MCH (RBC) [Entitic mass] MCH [Entitic mass] by Automated count 25.9-34.0 [facility] MCHC Auto (RBC) [Mass/Vol]on 08-02-2024 MCHC (RBC) [Mass/Vol] MCHC [Mass/volume] by Automated count 29.9-35.2 [facility] MCV Auto (RBC) [Entitic vol] on 08-02-2024 MCV (RBC) [Entitic vol] MCV [Entitic vol ume] by Automated count 80.0-94.0 [facility] Monocytes Auto (Bld) [#/Vol] on 08-02-2024 Monocytes (Bld) [#/Vol] Automated blood monocyte count High 0.3-0.8 [facility] Monocytes/100 WBC Auto (Bld) on 08-02-2024 Monocytes/100 WBC (Bld) Automated monocyte % High 1. 7-12.0 [facility] Neutrophils Auto (Bld) [#/Vo l]on 08-02-2024 Neutrophils (Bld) [#/Vol] Neutrophils [#/volume] in Blood by Automated count 1.4-6.5 [facility] Neutrophils/100 WBC Auto (Bl d)on 08-02-2024 Neutrophils/100 WBC (Bld) Automated neutrophil % 43.0-75.0 [facility] No Panel Informationon 08-02 Eosinophils # (Auto) 0.2 10 3/uL 0.0-0.7 [facility] Immature Granulocyte # (Auto) 0.03 10 3/uL 0.00-0.03 [facility] Platelet mean volume Auto (B ld) [Entitic vol]on 08-02-2024 Platelet mean volume (Bld) [Entitic vol] Platelet mean volume [Entitic volume] in Blood by Automated count 9.5-13.5 [facility] Platelets Auto (Bld) [#/Vol] on 08-02-2024 Platelets (Bld) [#/Vol] Platelets [#/vol ume] in Blood by Automated count 150-450 [facility] RBC Auto (Bld) [#/Vol]on RBC (Bld) [#/Vol] Erythrocytes [#/volume] in Blood by Automated count Low 4.70-6.10 [facility] Serum or plasma anion gap de terminationon 08-02-2024 Anion gap [Moles/Vol] Serum or plasma an ion gap determination [facility] Basophils Auto (Bld) [#/Vol] on 07-30-2024 Basophils (Bld) [#/Vol] Automated basoph il count 0.0-0.1 [facility] Basophils/100 WBC Auto (Bld) on 07-30-2024 Basophils/100 WBC (Bld) Automated basophil % 0. 2-2.0 [facility] Eosinophils/100 WBC Auto (Bl d)on 07-30-2024 Eosinophils/100 WBC (Bld) Automated eosinophil % 0.9-7.0 [facility] Erythrocyte distribution wid th Auto (RBC) [Ratio]on 07-30-2024 Erythrocyte distribution width (RBC) [Ratio] Erythrocyte distribution width [Ratio] by Automated count 11.0-15.0 [facility] Estimated glomerular filtrat ion rate (GFR) non- Americanon 07-30-2024 GFR/1.73 sq M.predicted among non-blacks MDRD (S/P/Bld) [Vol rate/Area] Estimated glomerular filtration rate (GFR) non- Low >=60 mL/min/1.73 m 2 [facility] Globulin Calc (S) [Mass/Vol] on 07-30-2024 Globulin (S) [Mass/Vol] Serum globulin measurement by calculation (mass/volume) [facility] Hematocrit Auto (Bld) [Volum e fraction]on 07-30-2024 Hematocrit (Bld) [Volume fraction] Hematocrit [Volume Fraction] of Blood by Automated count Low 42.0-54.0 [facility] Hemoglobin [Mass/volume] in Bloodon 07-30-2024 Hemoglobin (Bld) [Mass/Vol] Hemoglobin [Mass/volume] in Blood Low 14.0-18.0 [facility] Laboratory - Chemistry and C hemistry - challengeon 07-30-2024 Bilirubin Ql (U) Negative NEGATIVE [facility] Glucose (U) [Mass/Vol] 500 mg/dL Abnormal NEGATIVE [facility] Ketones Ql (U) Negative NEGATIVE [facility] pH (U) 5.5 [pH] 5.0-9.0 [facility] Specific gravity (U) [Rel density] <=1.005 Abnormal 1.005-1.025 [facility] Urobilinogen Qn (U) 0.2 {Fabiana'U}/dL 0.2-1.0 [facility] Albumin [Mass/Vol] 3.2 g/dL Low 3.4-5.0 [facility] ALP [Catalytic activity/Vol] 90 U/L 46-116 [facility] ALT [Catalytic activity/Vol] 27 U/L 16-63 [facility] AST [Catalytic activity/Vol] 22 U/L 15-37 [facility] Bilirubin [Mass/Vol] 0.4 mg/dL 0.2-1.0 [facility] Bilirubin.direct [Mass/Vol] 0.1 mg/dL 0.0-0.2 [facility] Calcium [Mass/Vol] 8.6 mg/dL 8.5-10.1 [facility] Chloride [Moles/Vol] 94 mmol/L Low 98-107 [facility] CO2 [Moles/Vol] 29.0 mmol/L 21.0-32.0 [facility] Creatinine [Mass/Vol] 3.35 mg/dL High 0.70-1.30 [facility] GFR/1.73 sq M.predicted MDRD (S/P/Bld) [Vol rate/Area] 23 mL/min/{1.73_m2} Low >=60 mL/min/1.73 m 2 [facility] Glucose [Mass/Vol] 222 mg/dL High 74-106 [facility] Lipase [Catalytic activity/Vol] 25.0 U/L 16.0-77.0 [facility] Potassium [Moles/Vol] 4.6 mmol/L 3.5-5.1 [facility] Protein [Mass/Vol] 7.5 g/dL 6.4-8.2 [facility] Sodium [Moles/Vol] 134 mmol/L Low 136-145 [facility] Urea nitrogen [Mass/Vol] 75.0 mg/dL High 7.0-18.0 [facility] Urea nitrogen/Creatinine [Mass ratio] 22.4 mg/mg [facility] Laboratory - Hematology and Cell countson 07-30-2024 Immature granulocytes/100 WBC (Bld) 0.5 % 0.0-0.5 [facility] Laboratory - Specimen inform ationon 07-30-2024 Appearance (U) CLEAR CLEAR [facility] Color (U) LT. YELLOW YELLOW [facility] - Urinalysison Leukocyte esterase Test strip Ql (U) Negative NEGATIVE [facility] Nitrite Ql (U) Negative NEGATIVE [facility] Protein Ql (U) Negative NEG/TRACE [facility] Leukocytes [#/volume] correc yaneth for nucleated erythrocytes in Blood by Automated counon 07-30-2024 WBC corrected for nucl RBC Auto (Bld) [#/Vol] Leukocytes [#/volume] corrected for nucleated erythrocytes in Blood by Automated coun 4.0-11.0 [facility] Lymphocytes Auto (Bld) [#/Vo l]on 07-30-2024 Lymphocytes (Bld) [#/Vol] Lymphocytes [#/volume] in Blood by Automated count 1.2-3.8 [facility] Lymphocytes/100 WBC Auto (Bl d)on 07-30-2024 Lymphocytes/100 WBC (Bld) Lymphocytes/100 leukocytes in Blood by Automated count Low 20.5-60.0 [facility] MCH Auto (RBC) [Entitic mass ]on 07-30-2024 MCH (RBC) [Entitic mass] MCH [Entitic mass] by Automated count 25.9-34.0 [facility] MCHC Auto (RBC) [Mass/Vol]on 07-30-2024 MCHC (RBC) [Mass/Vol] MCHC [Mass/volume] by Automated count 29.9-35.2 [facility] MCV Auto (RBC) [Entitic vol] on 07-30-2024 MCV (RBC) [Entitic vol] MCV [Entitic vol ume] by Automated count 80.0-94.0 [facility] Monocytes Auto (Bld) [#/Vol] on 07-30-2024 Monocytes (Bld) [#/Vol] Automated blood monocyte count 0.3-0.8 [facility] Monocytes/100 WBC Auto (Bld) on 07-30-2024 Monocytes/100 WBC (Bld) Automated monocyte % 1. 7-12.0 [facility] Neutrophils Auto (Bld) [#/Vo l]on 07-30-2024 Neutrophils (Bld) [#/Vol] Neutrophils [#/volume] in Blood by Automated count 1.4-6.5 [facility] Neutrophils/100 WBC Auto (Bl d)on 07-30-2024 Neutrophils/100 WBC (Bld) Automated neutrophil % 43.0-75.0 [facility] No Panel Informationon 07-30 Urine Microscopic Review NO [facility] Urine Occult Blood Negative NEGATIVE [facility] Eosinophils # (Auto) 0.1 10 3/uL 0.0-0.7 [facility] Immature Granulocyte # (Auto) 0.04 10 3/uL High 0.00-0.03 [facility] Platelet mean volume Auto (B ld) [Entitic vol]on 07-30-2024 Platelet mean volume (Bld) [Entitic vol] Platelet mean volume [Entitic volume] in Blood by Automated count 9.5-13.5 [facility] Platelets Auto (Bld) [#/Vol] on 07-30-2024 Platelets (Bld) [#/Vol] Platelets [#/vol ume] in Blood by Automated count 150-450 [facility] RBC Auto (Bld) [#/Vol]on RBC (Bld) [#/Vol] Erythrocytes [#/volume] in Blood by Automated count Low 4.70-6.10 [facility] Serum or plasma albumin/glob ulin mass ratioon 07-30-2024 Albumin/Globulin [Mass ratio] Serum or plasma albumin/globulin mass ratio [facility] Serum or plasma anion gap de terminationon 07-30-2024 Anion gap [Moles/Vol] Serum or plasma an ion gap determination [facility] .eGFRon 07-29-2024 Estimated GFR 21 mL/min/1.73m? Low >=60 [facility] Comment on above: Result Comment: [facility] have implemented the eGFR calculation approach that does not have a coefficient for race and that conforms to the NKF-ASN Task Force Recommendations. Stages of Chronic Kidney Disease GFR Stage 3a Mild to moderate loss of kidney function 59 to 45 Stage 3b Moderate to severe loss of kidney function 44 to 33 Stage 4 Severe loss of kidney function 29 to 15 Stage 5 Kidney failure Less than 15 GFR calculated using the CKD-Epi Creatinine Equation (2020): eGFR = 142 X min(SCr/?, 1)? X max(SCr /?, 1)-1.200 X 0.9938Age X 1.012 [if female] Abbreviations/Units: eGFR (estimated glomerular filtration rate) = mL/min/1.73 m2 SCr (standardized serum creatinine) = mg/dL ? = 0.7 (females) or 0.9 (males) ? = -0.241 (females) or -0.302 (males) min = indicates the minimum of SCr/? or 1 max = indicates the maximum of SCr/? or 1 Age = years Performed By: #### E GFR #### [address] [address] Basic Metabolic Profileon Anion gap [Moles/Vol] 11 mmol/L Normal 4-12 [facility] Comment on above: Performed By: #### C [id number] ####[address] [address] Calcium [Mass/Vol] 8.3 mg/dL Low 8.5-10.3 [facility] Comment on above: Performed By: #### C [id number] ####[address] [address] Chloride [Moles/Vol] 94 mmol/L Low 98-110 [facility] Comment on above: Performed By: #### C [id number] ####[address] [address] CO2 [Moles/Vol] 28 mmol/L Normal 22-32 [facility] Comment on above: Performed By: #### C [id number] ####[address] [address] Creatinine [Mass/Vol] 3.21 mg/dL High 0.61-1.24 [facility] Comment on above: Performed By: #### C [id number] ####[address] [address] Glucose [Mass/Vol] 90 mg/dL Normal 70-99 [facility] Comment on above: Performed By: #### C [id number] ####[address] [address] Potassium [Moles/Vol] 4.1 mmol/L Normal 3.4-4.8 [facility] Comment on above: Performed By: #### C [id number] ####[address] [address] Sodium [Moles/Vol] 133 mmol/L Normal 133-142 [facility] Comment on above: Performed By: #### C [id number] ####[address] [address] Urea nitrogen [Mass/Vol] 72 mg/dL High 8-26 [facility] Comment on above: Performed By: #### C [id number] ####[address] [address] Urea nitrogen/Creatinine [Mass ratio] 22.4 mg/mg High 10.0-20.0 [facility] Comment on above: Performed By: #### C [id number] ####[address] [address] CBCon 07-29-2024 Erythrocyte distribution width (RBC) [Ratio] 13.7 % Normal 11.6-14.8 [facility] Comment on above: Performed By: #### . AMI Initial #### [address] [address] Hematocrit (Bld) [Volume fraction] 30.2 % Low 41.0-53.0 [facility] Comment on above: Performed By: #### . AMI Initial #### [address] [address] Hemoglobin (Bld) [Mass/Vol] 10.4 g/dL Low 13.5-17.5 [facility] Comment on above: Performed By: #### . AMI Initial #### [address] [address] MCH (RBC) [Entitic mass] 31.5 pg Normal 27.0-35.0 [facility] Comment on above: Performed By: #### . AMI Initial #### [address] [address] MCHC 34.5 % Normal 31.0-37.0 [facility] Comment on above: Performed By: #### . AMI Initial #### [address] [address] MCV (RBC) [Entitic vol] 91.4 fL Normal 80.0-100.0 [facility] Comment on above: Performed By: #### . AMI Initial #### [address] [address] Platelet 245 x10*3/mcL Normal 150-450 [facility] Comment on above: Performed By: #### . AMI Initial #### [address] [address] Platelet mean volume (Bld) [Entitic vol] 9.0 fL Normal 6.7-10.6 [facility] Comment on above: Performed By: #### . AMI Initial #### [address] [address] RBC 3.31 x10*6/mcL Low 4.30-5.80 [facility] Comment on above: Performed By: #### . AMI Initial #### [address] [address] WBC 8.1 x10*3/mcL Normal 4.5-11.0 [facility] Comment on above: Performed By: #### . AMI Initial #### [address] [address] Inpatient Clinical Summary 07-29-2024 Inpatient Clinical Summary [address] [address] [phone] [address] [phone] Clinical Summary Person Information Name: Piotr Kerr Age: 63 Years : 1960 Sex: Male PCP: Jorge Pritchett DO Marital Status: Phone: PCP: Race: White Ethnicity: Not or Language: Occitan Visit Id: Visit Reason: Renal Failure Speciality: Acuity: Enc Type: Inpatient Med Service: Medicine-General Arrival: 07/23/2024 09:47:21 Discharge: Dispo Type: Address: [address] [place] [id number] Preferred Communication Mode: Preferred Language: Occitan Discharge Diagnosis: 1:NEO (acute kidney injury); 2:HTN (hypertension); 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 Discharge Special Instructions Schedule appointment with Dr Dukes within 2 weeks for follow up of right great toe. Discharge Special Instructions Cleanse wound to right great toe with vashe wound cleanser and gauze. Pat dry. Apply Santyl ointment (nickel thick) and then cover with normal saline moistened gauze and 2 large bandaids. Perform daily. Surgical Shoe/Cast Shoe 07/27/24 13:25:00 EST, 3 months, [id number], PT RECEIVED A SMALL SHOE, PLEASE DISPENSE NEXT SIZE UP Surgical Shoe/Cast Shoe 07/25/24 12:25:00 EST, 3 MONTHS Tube Feeding and Supplements Home Health Consult and Ambulatory Referrals Treatment and Wound Care Coughing/Deep Breathing 07/23/24 11:03:00 EST, Stop date 07/23/24 11:03:00 EST, Encourage patient to perform Q1 hour while awake Indwelling Urinary Catheter Continuation 07/24/24 6:00:00 EST, Daily, -1 Indwelling Urinary Catheter Discontinue 07/29/24 14:46:00 EST, when fully awake, 07/29/24 14:46:00 EST Insulin Safety [place] 07/23/24 11:04:00 EST, PRN, 1 each insulin administration Peripheral IV Insert and Maintain 07/23/24 11:03:00 EST, May continue same site if no signs or symptoms of infection and unable to access new site., 07/23/24 11:03:00 EST Wound Care Routine 07/25/24 12:44:00 EST, Daily Skin Care: Skin Integrity: Localized abnormality Skin Abnormalities: Bruising Lines/Devices/BM Information: Urinary Catheter Type: Indwelling/Continuous Urinary Catheter Size: Urinary Catheter Activity Date: Insert new catheter Pre-insertion Indwelling Catheter Education: CAUTI prevention information, Reason for insertion, To patient Ostomy Type: GI Tube Type: GI Tube Size: GI Tube Activity Date: Date of Last Bowel Movement: 07/23/24 Functional Status: Sensory Deficits: Valuables/Belongings: Clothes, Other: cane History of Falls Within 6 Months: No JH High Fall Risk Interventions: All low and moderate risk fall interventions, Red high fall risk indicated outside patient room, Yellow gown and red nonskid socks, Bed/chair alarm activated, Patient transported with assistance of staff Activities of Daily Living: ADLs: Minimal assistance Bathing ADL: Requires assistance (1) Dressing ADL: Requires assistance (1) Personal Care Provided: Other: patient refused a shower stated that he didt need it Bed Mobility Assistance: Independent Ambulation Assistance: One person assistance Musculoskeletal Abnormality: Gait: Unsteady Assistive Devices: Gait belt, Walker Special Orthopedic Devices: Current Level of Assistance for Self Care/Mobility: No change from baseline Cognitive Status: Orientation Assessment: Oriented x 4 Level of Consciousness: Alert Characteristics of Speech: Clear Aspiration Risk: None Affect/Behavior: Appropriate, Calm, Cooperative Smoking Status Never (less than 100 in lifetime) Laboratory or Other Results This Visit (last charted value for your 07/23/2024 visit) Hematology 07/29/2024 5:05 AM WBC: 8.1 x10 RBC: 3.31 x10 MCV: 91.4 fL -- Normal range between ( 80.0 and 100.0 ) MCHC: 34.5 % -- Normal range between ( 31.0 and 37.0 ) Hct: 30.2 % -- Normal range between ( 41.0 and 53.0 ) MCH: 31.5 pg -- Normal range between ( 27.0 and 35.0 ) Hgb: 10.4 g/dL -- Normal range between ( 13.5 and 17.5 ) Mean Platelet Volume: 9.0 fL -- Normal range between ( 6.7 and 10.6 ) Platelet: 245 x10 RDW: 13.7 % -- Normal range between ( 11.6 and 14.8 ) 07/23/2024 11:40 AM Eosinophil Smear Urine: WBC QNS Ur WBC Qnt for Eos Cnt: 0 /HPF -- Normal range between ( 0 and 5 ) 07/23/2024 10:51 AM Neutro Auto: 66.2 % -- Normal range between ( 47.2 and 70.8 ) Lymph Auto: 20.4 % -- Normal range between ( 27.2 and 40.8 ) [place] Auto: 11.8 % -- Norm (more content not included)... Normal [facility] Magnesiumon 07-29-2024 Magnesium [Mass/Vol] 2.0 mg/dL Normal 1.7-2.4 [facility] Comment on above: Performed By: #### . AMI 6 Hr #### [facility] [address] [place] [address] Nephrology Progress Noteon 0 07-29-2024 Nephrology Progress Note Subjective Patient evaluated resting in bed, alert and oriented and answering questions appropriately. Denies chest pain, shortness of breath. Admits to persistent dizziness and tinnitus followed and managed by Neurology. Does have some constipation with treatment with bowel regimen. Denies nausea, vomiting, diarrhea. Respirations are easy and unlabored. No acute events reported overnight. Note documented late due to IT logon issue Review of Systems As stated above Objective Vitals & Measurements T: 36.6 ?C (Oral) HR: 64 (Peripheral) RR: 16 BP: 127/58 SpO2: 98% HT: 182 cm WT: 119.4 kg (Estimated) BMI: 35.38 Additional Vitals No qualifying data available. Lab Results Microbiology - Current Encounter No qualifying data available. CMP Last Result Event Name Event Result Date/Time Sodium Lvl 133 mmol/L 07/29/24 05:05:00 Potassium Lvl 4.1 mmol/L 07/29/24 05:05:00 Chloride 94 mmol/L Low 07/29/24 05:05:00 CO2 28 mmol/L 07/29/24 05:05:00 Anion Gap 11 07/29/24 05:05:00 Glucose Lvl 90 mg/dL 07/29/24 05:05:00 BUN 72 mg/dL High 07/29/24 05:05:00 Creatinine Lvl 3.21 mg/dL High 07/29/24 05:05:00 Estimated GFR 21 mL/min/1.73m? Low 07/29/24 05:05:00 BUN Crea Ratio 22.4 High 07/29/24 05:05:00 Bili Total 0.7 mg/dL 07/23/24 10:51:00 Alk Phos 61 IU/L 07/23/24 10:51:00 AST 15 IU/L 07/23/24 10:51:00 ALT 15 IU/L Low 07/23/24 10:51:00 Total Protein 7.5 g/dL 07/23/24 10:51:00 Albumin Lvl 3.3 g/dL 07/28/24 05:48:00 AG Ratio 1.1 07/23/24 10:51:00 Calcium Lvl 8.3 mg/dL Low 07/29/24 05:05:00 CBC Last Result Event Name Event Result Date/Time WBC 8.1 x10 07/29/24 05:05:00 RBC 3.31 x10 07/29/24 05:05:00 Hgb 10.4 g/dL Low 07/29/24 05:05:00 Hct 30.2 % Low 07/29/24 05:05:00 MCV 91.4 fL 07/29/24 05:05:00 MCH 31.5 pg 07/29/24 05:05:00 MCHC 34.5 % 07/29/24 05:05:00 RDW 13.7 % 07/29/24 05:05:00 Platelet 245 x10 07/29/24 05:05:00 Mean Platelet Volume 9 fL 07/29/24 05:05:00 Neutro Auto 66.2 % 07/23/24 10:51:00 Lymph Auto 20.4 % Low 07/23/24 10:51:00 [place] Auto 11.8 % 07/23/24 10:51:00 Eos Auto 0.9 % 07/23/24 10:51:00 Basophil Auto 0.7 % 07/23/24 10:51:00 Neutro Absolute 5 x10 07/23/24 10:51:00 Lymph Absolute 1.5 x10 07/23/24 10:51:00 [place] Absolute 0.9 x10 07/23/24 10:51:00 Eos Absolute 0.1 x10 07/23/24 10:51:00 Baso Absolute 0.1 x10 07/23/24 10:51:00 Urine Studies No qualifying data available. Diagnostic Results Computed Tomography CT Brain w/o Contrast 07/28/24 07:58:33 IMPRESSION: No acute large vascular territory infarct or acute intracranial hemorrhage. If there is clinical concern for acute ischemia recommend MRI brain for further evaluation. Signed By: Zee Guillen DO Physical Exam HEENT: Normocephalic and with moist mucous membranes CV: Heart with regular rate and rhythm Lungs: Clear to auscultation bilaterally Abdomen: No tenderness to palpation and with normal bowel sounds Lower Extremities: No edema Medications Inpatient No active inpatient medications Assessment/Plan 1. NEO (acute kidney injury) Resolved admission NEO secondary to pre-renal azotemia and Sensipar induced ATN renal effect. Patient with a creatinine of 2.3 on 07/13/2024 and presented to outside facility with clinical symptoms consistent with uremia and finding of elevated creatinine level greater than 4. No indication for renal biopsy with continued recovery. Continue I & O monitoring, strict BP and glucose control. -OK to DC diaz -OK for DC per renal standpoint with follow up in 1-2 weeks at our outpatient [place] clinic 2. HTN (hypertension) Chronic baseline history [...] on Calcitriol 0.5 mcg daily-- plan to continue Started on hyper-phosphatemia treatment with Phoslo 667mg qac-- plan to continue on DC Electronically signed by [employer]SE MECHANIC-COLOR TECHNICIAN, Lluvia Alvarez 07/30/24 14:17 EST As the attending, patient's case was reviewed and discussed with Vaishali (more content not included)... Normal [facility] Neurology Progress Noteon Neurology Progress Note Subjective Patient reports that his dizziness is much better subsequently there was no dose change in his meclizine he is having constipation and is awaiting a suppository Review of Systems Constitutional: [No fevers, chills, sweats] Eye: [No recent visual problems] ENMT: [No ear pain, nasal congestion, sore throat] Respiratory: [No shortness of breath, cough] Cardiovascular: [No Chest pain, palpitations, syncope] Gastrointestinal: [No nausea, vomiting, diarrhea] constipation Genitourinary: [No hematuria] Objective Vitals & Measurements T: 36.6 ?C (Oral) HR: 64 (Peripheral) RR: 16 BP: 127/58 SpO2: 98% HT: 182 cm WT: 119.4 kg (Estimated) BMI: 35.38 Additional Vitals No qualifying data available. Lab Results Test Name Test Result Date/Time WBC 8.1 x10 Hgb 10.4 g/dL (Low) 07/29/2024 05:05 EST Hct 30.2 % (Low) 07/29/2024 05:05 EST Platelet 245 x10 Sodium Lvl 133 mmol/L 07/29/2024 05:05 EST Potassium Lvl 4.1 mmol/L 07/29/2024 05:05 EST Chloride 94 mmol/L (Low) 07/29/2024 05:05 EST CO2 28 mmol/L 07/29/2024 05:05 EST Glucose Lvl 90 mg/dL 07/29/2024 05:05 EST BUN 72 mg/dL (High) 07/29/2024 05:05 EST Creatinine Lvl 3.21 mg/dL (High) 07/29/2024 05:05 EST Microbiology - Current Encounter No qualifying data available. Diagnostic Results Computed Tomography CT Brain w/o Contrast 07/28/24 07:58:33 IMPRESSION: No acute large vascular territory infarct or acute intracranial hemorrhage. If there is clinical concern for acute ischemia recommend MRI brain for further evaluation. Signed By: Zee Guillen DO Physical Exam Alert orient x 3 normal speech cranial nerves II through XII are intact motor exam shows a chronic left hemiparesis with the leg more involved than the arm Medications Inpatient acetaminophen, 650 mg, Oral, q6hr, PRN acetaminophen, 650 mg, Oral, q6hr, PRN aspirin, 81 mg, Oral, Daily calcitriol, 0.5 mcg, Oral, Daily carvedilol, 12.5 mg, Oral, Daily clopidogrel, 75 mg, Oral, Daily Colace, 100 mg, Oral, Daily, PRN Dextrose 10% in Water IV Piggyback, 125 mL, IV Piggyback, As Indicated, PRN glucagon, 1 mg, Subcutaneous, As Indicated, PRN heparin, 5000 units= 1 mL, Subcutaneous, [id number] Times hydrocodone-acetamino phen 5 mg-325 mg oral tablet, 1 tabs, Oral, q4hr, PRN insulin aspart HIGH dose sliding scale BMI > 30, see comments, Subcutaneous, ACHS insulin glargine, 50 units, Subcutaneous, Daily Jardiance, 10 mg, Oral, Daily Lasix, 40 mg, Oral, Daily losartan, 25 mg, Oral, Daily meclizine, 12.5 mg, Oral, BID MiraLax, 17 g= 1 EA, Oral, Daily, PRN naloxone, 0.4 mg= 1 mL, IV Push, q2min, PRN [place] 10 mg-325 mg oral tablet, 1 tabs, Oral, q6hr, PRN Normal Saline Flush 0.9% injectable solution, 10 mL, IV Push, As Indicated, PRN Normal Saline Flush 0.9% injectable solution, 10 mL, IV Push, BID nystatin 100,000 units/g topical powder, 1 fabio, Topical, BID ondansetron, 4 mg= 2 mL, IV Push, q4hr, PRN PhosLo Gelcap, 667 mg, Oral, WM pravastatin, 40 mg, Oral, Daily Santyl 250 units/g topical ointment, 1 fabio, Topical, Daily tamsulosin, 0.4 mg, Oral, BID Vitamin C, 1000 mg, Oral, Daily Assessment/Plan 1. NEO (acute kidney injury) 2. HTN (hypertension) 3. DM type 2 causing CKD stage 4 4. Electrolyte abnormality 5. Renal osteodystrophy Peripheral vestibular dysfunction better today on Antivert 12.5 mg twice daily Electronically signed by Werner Sunshine MD 07/29/24 14:10 EST Normal [facility] POC Glucose Randomon 025 Glucose [Mass/Vol] 83 mg/dL Normal 70-99 [facility] Comment on above: Performed By: #### M G #### [place] [id number] Glucose [Mass/Vol] 104 mg/dL High 70-99 [facility] Comment on above: Performed By: #### . AMI Initial #### [address] [address] Phosphoruson 07-29-2024 Phosphate [Mass/Vol] 5.0 mg/dL High 2.5-4.6 [facility] Comment on above: Performed By: #### R ENAL #### [address] [address] .eGFRon 07-28-2024 Estimated GFR 32 mL/min/1.73m? Low >=60 [facility] Comment on above: Result Comment: [facility] have implemented the eGFR calculation approach that does not have a coefficient for race and that conforms to the NKF-ASN Task Force Recommendations. Stages of Chronic Kidney Disease GFR Stage 3a Mild to moderate loss of kidney function 59 to 45 Stage 3b Moderate to severe loss of kidney function 44 to 33 Stage 4 Severe loss of kidney function 29 to 15 Stage 5 Kidney failure Less than 15 GFR calculated using the CKD-Epi Creatinine Equation (2020): eGFR = 142 X min(SCr/?, 1)? X max(SCr /?, 1)-1.200 X 0.9938Age X 1.012 [if female] Abbreviations/Units: eGFR (estimated glomerular filtration rate) = mL/min/1.73 m2 SCr (standardized serum creatinine) = mg/dL ? = 0.7 (females) or 0.9 (males) ? = -0.241 (females) or -0.302 (males) min = indicates the minimum of SCr/? or 1 max = indicates the maximum of SCr/? or 1 Age = years Performed By: #### E GFR ####[address] [address] CBCon 07-28-2024 Erythrocyte distribution width (RBC) [Ratio] 13.7 % Normal 11.6-14.8 [facility] Comment on above: Performed By: #### . AMI 6 Hr #### [place] [id number] Hematocrit (Bld) [Volume fraction] 31.0 % Low 41.0-53.0 [facility] Comment on above: Performed By: #### . AMI 6 Hr #### [place] [id number] Hemoglobin (Bld) [Mass/Vol] 10.5 g/dL Low 13.5-17.5 [facility] Comment on above: Performed By: #### . AMI 6 Hr #### [place] [id number] MCH (RBC) [Entitic mass] 30.9 pg Normal 27.0-35.0 [facility] Comment on above: Performed By: #### . AMI 6 Hr #### [place] [id number] MCHC 33.8 % Normal 31.0-37.0 [facility] Comment on above: Performed By: #### . AMI 6 Hr #### [place] [id number] MCV (RBC) [Entitic vol] 91.4 fL Normal 80.0-100.0 [facility] Comment on above: Performed By: #### . AMI 6 Hr #### [place] [id number] Platelet 245 x10*3/mcL Normal 150-450 [facility] Comment on above: Performed By: #### . AMI 6 Hr #### [facility] [address] [place] [address] Platelet mean volume (Bld) [Entitic vol] 9.0 fL Normal 6.7-10.6 [facility] Comment on above: Performed By: #### . AMI 6 Hr #### [facility] [address] [place] [address] RBC 3.39 x10*6/mcL Low 4.30-5.80 [facility] Comment on above: Performed By: #### . AMI 6 Hr #### [address] [place] [place] [address] WBC 8.2 x10*3/mcL Normal 4.5-11.0 [facility] Comment on above: Performed By: #### . AMI 6 Hr #### [address] [place] [place] [address] CT Brain w/o Contraston 03-0 CT Brain w/o Contrast EXAMINATION: CT Br ain w/o Contrast HISTORY: Dizziness COMPARISON: CT head 07/27/2019 TECHNIQUE: CT examination of the head without IV contrast. Dose reduction techniques were achieved by using automated exposure control and/or adjustment of mA and/or kV according to patient size and/or use of iterative reconstruction technique. FINDINGS: Calvarium/skull base: No evidence of acute fracture or destructive lesion. Mastoid air cells are well aerated. Paranasal sinuses: No air fluid levels. Brain: No acute intracranial hemorrhage. No acute large vascular territory infarct. Stable parenchymal volume loss. Stable appearance of likely remote small cooking teacher infarct involving the right huang. No mass lesion or mass effect. No hydrocephalus. IMPRESSION: No acute large vascular territory infarct or acute intracranial hemorrhage. If there is clinical concern for acute ischemia recommend MRI brain for further evaluation. Radiation Dose Estimate: CTDI(mGy):0.752665 / / / kVp:120.904052 / mAs:0.099066 / / / DLP(mGy-cm):5.690750S garrisno Part: Head CTDI(mGy):46.673798 / / / kVp:120.280903 / mAs:186.081574 / / / DLP(mGy-cm):789.56695 3Body Part: Head Final Dictated by: Zee Guillen DO Dictated DT/TM: 07.28.2024 7:57 am Signed by: Zee Guillen DO Signed (Electronic Signature): 07.28.2024 7:58 am (If Report Is Signed, Electronically Signed in Other Vendor System) Normal [facility] Magnesiumon 07-28-2024 Magnesium [Mass/Vol] 1.8 mg/dL Normal 1.7-2.4 [facility] Comment on above: Performed By: #### M G #### [place] [id number] Nephrology Progress Noteon 0 07-28-2024 Nephrology Progress Note Subjective Patient evaluated while resting in bed in presence of myself and Dr. Beltran. Patient is alert and oriented x3, answering questions appropriately. Denies chest pain, shortness of breath. Reports persistent lightheadedness/dizzi ness and tinnitus. Neurology consulted and following. No acute events reported overnight. Does admit to intermittent nausea with his dizziness however reports good appetite. Respirations are easy and unlabored Review of Systems As stated above Objective Vitals & Measurements T: 36.9 ?C (Oral) HR: 62 (Peripheral) RR: 18 BP: 118/69 SpO2: 95% HT: 182 cm WT: 119.4 kg (Estimated) BMI: 35.38 Additional Vitals No qualifying data available. Lab Results Microbiology - Current Encounter No qualifying data available. CMP Last Result Event Name Event Result Date/Time Sodium Lvl 133 mmol/L 07/28/24 05:48:00 Potassium Lvl 4 mmol/L 07/28/24 05:48:00 Chloride 97 mmol/L Low 07/28/24 05:48:00 CO2 26 mmol/L 07/28/24 05:48:00 Anion Gap 10 07/28/24 05:48:00 Glucose Lvl 125 mg/dL High 07/28/24 05:48:00 BUN 62 mg/dL High 07/28/24 05:48:00 Creatinine Lvl 2.26 mg/dL High 07/28/24 05:48:00 Estimated GFR 32 mL/min/1.73m? Low 07/28/24 05:48:00 BUN Crea Ratio 27.4 High 07/28/24 05:48:00 Bili Total 0.7 mg/dL 07/23/24 10:51:00 Alk Phos 61 IU/L 07/23/24 10:51:00 AST 15 IU/L 07/23/24 10:51:00 ALT 15 IU/L Low 07/23/24 10:51:00 Total Protein 7.5 g/dL 07/23/24 10:51:00 Albumin Lvl 3.3 g/dL 07/28/24 05:48:00 AG Ratio 1.1 07/23/24 10:51:00 Calcium Lvl 8.1 mg/dL Low 07/28/24 05:48:00 CBC Last Result Event Name Event Result Date/Time WBC 8.2 x10 07/28/24 05:48:00 RBC 3.39 x10 07/28/24 05:48:00 Hgb 10.5 g/dL Low 07/28/24 05:48:00 Hct 31 % Low 07/28/24 05:48:00 MCV 91.4 fL 07/28/24 05:48:00 MCH 30.9 pg 07/28/24 05:48:00 MCHC 33.8 % 07/28/24 05:48:00 RDW 13.7 % 07/28/24 05:48:00 Platelet 245 x10 07/28/24 05:48:00 Mean Platelet Volume 9 fL 07/28/24 05:48:00 Neutro Auto 66.2 % 07/23/24 10:51:00 Lymph Auto 20.4 % Low 07/23/24 10:51:00 [place] Auto 11.8 % 07/23/24 10:51:00 Eos Auto 0.9 % 07/23/24 10:51:00 Basophil Auto 0.7 % 07/23/24 10:51:00 Neutro Absolute 5 x10 07/23/24 10:51:00 Lymph Absolute 1.5 x10 07/23/24 10:51:00 [place] Absolute 0.9 x10 07/23/24 10:51:00 Eos Absolute 0.1 x10 07/23/24 10:51:00 Baso Absolute 0.1 x10 07/23/24 10:51:00 Urine Studies No qualifying data available. Diagnostic Results Computed Tomography CT Brain w/o Contrast 07/28/24 07:58:33 IMPRESSION: No acute large vascular territory infarct or acute intracranial hemorrhage. If there is clinical concern for acute ischemia recommend MRI brain for further evaluation. Signed By: Zee Guillen DO Physical Exam HEENT: Normocephalic and with moist mucous membranes CV: Heart with regular rate and rhythm Lungs: Clear to auscultation bilaterally Abdomen: No tenderness to palpation and with normal bowel sounds Lower Extremities: No edema Medications Inpatient acetaminophen, 650 mg, Oral, q6hr, PRN acetaminophen, 650 mg, Oral, q6hr, PRN aspirin, 81 mg, Oral, Daily calcitriol, 0.5 mcg, Oral, Daily carvedilol, 12.5 mg, Oral, Daily clopidogrel, 75 mg, Oral, Daily Colace, 100 mg, Oral, Daily, PRN Dextrose 10% in Water IV Piggyback, 125 mL, IV Piggyback, As Indicated, PRN glucagon, 1 mg, Subcutaneous, As Indicated, PRN heparin, 5000 units= 1 mL, Subcutaneous, [id number] Times hydrocodone-acetamino phen 5 mg-325 mg oral tablet, 1 tabs, Oral, q4hr, PRN insulin aspart HIGH dose sliding scale BMI > 30, see comments, Subcutaneous, ACHS insulin glargine, 50 units, Subcutaneous, Daily Jardiance, 10 mg, Oral, Daily Lasix, 40 mg, Oral, Daily losartan, 25 mg, Oral, Daily meclizine, 12.5 mg, Oral, BID MiraLax, 17 g= 1 EA, Oral, Daily, PRN naloxone, 0.4 mg= 1 mL, IV Push, q2min, PRN [place] 10 mg-325 mg oral tablet, 1 tabs, Oral, q6hr, PRN Normal Saline Flush 0.9% injectable solution, 10 mL, IV Push, As Indicated, PRN Normal Saline Flush 0.9% injectable solution, 10 mL, IV Push, BID nystatin 100,000 units/g topical powder, 1 fabio, Topical, BID ondansetron, 4 mg= 2 mL, IV Push, q4hr, PRN PhosLo Gelcap, 667 mg, Oral, WM pravastatin, 40 mg, Oral, Daily Santyl 250 units/g topical ointment, 1 fabio, Topical, Daily tamsulosin, 0.4 mg, Oral, BID Vitamin C, 1000 mg, Oral, Daily Assessment/Plan 1. NEO (acute kidney injury) Resolved admission NEO secondary to pre-renal azotemia and Sensipar induced ATN renal effect. Patient with a creatinine of 2.3 on 07/13/2024 and presented to outside facility with clinical symptoms consistent with uremia and finding of elevated creatinine level greater than 4. No indication for renal biopsy with continued recovery. Continue I & O monitoring, strict BP and glucose control. -OK t (more content not included)... Normal [facility] Neurology Progress Noteon Neurology Progress Note Subjective Has some dizziness no new problems no side effects with meclizine we will raise the dose tomorrow if he still having symptoms Review of Systems Constitutional: [No fevers, chills, sweats] Eye: [No recent visual problems] ENMT: [No ear pain, nasal congestion, sore throat] Respiratory: [No shortness of breath, cough] Cardiovascular: [No Chest pain, palpitations, syncope] Gastrointestinal: [No nausea, vomiting, diarrhea] Genitourinary: [No hematuria] Objective Vitals & Measurements T: 36.6 ?C (Oral) HR: 76 (Peripheral) RR: 18 BP: 135/72 SpO2: 98% HT: 182 cm WT: 119.4 kg (Estimated) BMI: 35.38 Additional Vitals No qualifying data available. Lab Results Test Name Test Result Date/Time WBC 8.2 x10 Hgb 10.5 g/dL (Low) 07/28/2024 05:48 EST Hct 31.0 % (Low) 07/28/2024 05:48 EST Platelet 245 x10 Sodium Lvl 133 mmol/L 07/28/2024 05:48 EST Potassium Lvl 4.0 mmol/L 07/28/2024 05:48 EST Chloride 97 mmol/L (Low) 07/28/2024 05:48 EST CO2 26 mmol/L 07/28/2024 05:48 EST Glucose Lvl 125 mg/dL (High) 07/28/2024 05:48 EST BUN 62 mg/dL (High) 07/28/2024 05:48 EST Creatinine Lvl 2.26 mg/dL (High) 07/28/2024 05:48 EST Microbiology - Current Encounter No qualifying data available. Diagnostic Results Computed Tomography CT Brain w/o Contrast 07/28/24 07:58:33 IMPRESSION: No acute large vascular territory infarct or acute intracranial hemorrhage. If there is clinical concern for acute ischemia recommend MRI brain for further evaluation. Signed By: Zee Guillen DO Physical Exam Alert orient x 3 cranial nerves II through XII are intact motor exam shows a left hemiparesis with leg more involved in the arm Medications Inpatient acetaminophen, 650 mg, Oral, q6hr, PRN acetaminophen, 650 mg, Oral, q6hr, PRN aspirin, 81 mg, Oral, Daily calcitriol, 0.5 mcg, Oral, Daily carvedilol, 12.5 mg, Oral, Daily clopidogrel, 75 mg, Oral, Daily Colace, 100 mg, Oral, Daily, PRN Dextrose 10% in Water IV Piggyback, 125 mL, IV Piggyback, As Indicated, PRN glucagon, 1 mg, Subcutaneous, As Indicated, PRN heparin, 5000 units= 1 mL, Subcutaneous, [id number] Times hydrocodone-acetamino phen 5 mg-325 mg oral tablet, 1 tabs, Oral, q4hr, PRN insulin aspart HIGH dose sliding scale BMI > 30, see comments, Subcutaneous, ACHS insulin glargine, 50 units, Subcutaneous, Daily Jardiance, 10 mg, Oral, Daily Lasix, 40 mg, Oral, Daily losartan, 25 mg, Oral, Daily meclizine, 12.5 mg, Oral, BID MiraLax, 17 g= 1 EA, Oral, Daily, PRN naloxone, 0.4 mg= 1 mL, IV Push, q2min, PRN [place] 10 mg-325 mg oral tablet, 1 tabs, Oral, q6hr, PRN Normal Saline Flush 0.9% injectable solution, 10 mL, IV Push, As Indicated, PRN Normal Saline Flush 0.9% injectable solution, 10 mL, IV Push, BID nystatin 100,000 units/g topical powder, 1 fabio, Topical, BID ondansetron, 4 mg= 2 mL, IV Push, q4hr, PRN PhosLo Gelcap, 667 mg, Oral, WM pravastatin, 40 mg, Oral, Daily Santyl 250 units/g topical ointment, 1 fabio, Topical, Daily tamsulosin, 0.4 mg, Oral, BID Vitamin C, 1000 mg, Oral, Daily Assessment/Plan 1. NEO (acute kidney injury) 2. HTN (hypertension) 3. DM type 2 causing CKD stage 4 4. Electrolyte abnormality 5. Renal osteodystrophy . Peripheral vestibular dysfunction associated with dizziness head CT only showed small vessel disease with nothing acute continue current dose of meclizine Electronically signed by Werner Sunshine MD 07/28/24 19:04 EST Normal [facility] POC Glucose Randomon 025 Glucose [Mass/Vol] 173 mg/dL High 70-99 [facility] Comment on above: Performed By: #### C [id number] ####[address] [address] Glucose [Mass/Vol] 113 mg/dL High 70-99 [facility] Comment on above: Performed By: #### R ENAL #### [address] [address] Glucose [Mass/Vol] 128 mg/dL High 70-99 [facility] Comment on above: Performed By: #### C [id number] #### [address] [address] Glucose [Mass/Vol] 133 mg/dL High 70-99 [facility] Comment on above: Performed By: #### . AMI Initial #### [address] [address] Renal Panelon 07-28-2024 Albumin [Mass/Vol] 3.3 g/dL Normal 3.2-4.9 [facility] Comment on above: Performed By: #### R ENAL #### [address] [address] Anion gap [Moles/Vol] 10 mmol/L Normal 4-12 [facility] Comment on above: Performed By: #### R ENAL #### [facility] [address] [place] [address] [place] [address] Calcium [Mass/Vol] 8.1 mg/dL Low 8.5-10.3 [facility] Comment on above: Performed By: #### R ENAL #### [address] [address] Chloride [Moles/Vol] 97 mmol/L Low 98-110 [facility] Comment on above: Performed By: #### R ENAL #### [address] [address] CO2 [Moles/Vol] 26 mmol/L Normal 22-32 [facility] Comment on above: Performed By: #### R ENAL #### [address] [address] Creatinine [Mass/Vol] 2.26 mg/dL High 0.61-1.24 [facility] Comment on above: Performed By: #### R ENAL #### [address] [address] Glucose [Mass/Vol] 125 mg/dL High 70-99 [facility] Comment on above: Performed By: #### R ENAL #### [address] [address] Phosphate [Mass/Vol] 4.3 mg/dL Normal 2.5-4.6 [facility] Comment on above: Performed By: #### R ENAL #### [address] [address] Potassium [Moles/Vol] 4.0 mmol/L Normal 3.4-4.8 [facility] Comment on above: Performed By: #### R ENAL #### [address] [address] Sodium [Moles/Vol] 133 mmol/L Normal 133-142 [facility] Comment on above: Performed By: #### R ENAL #### [address] [address] Urea nitrogen [Mass/Vol] 62 mg/dL High 8-26 [facility] Comment on above: Performed By: #### R ENAL #### [address] [address] Urea nitrogen/Creatinine [Mass ratio] 27.4 mg/mg High 10.0-20.0 [facility] Comment on above: Performed By: #### R ENAL #### [address] [address] .AMI 2 Hron 07-27-2024 2 Hour Myoglobin 98.6 ng/mL Normal 17.4-105.7 [facility] Comment on above: Performed By: #### . AMI 2 Hour ####[address] [address] 2 Hour Troponin <0.03 Normal 0.00-0.03 [facility] Comment on above: Result Comment: An i ncreased Troponin-I value, in the absence of myocardial ischemia, may indicate other etiologies of cardiac damage. 99th Percentile Cutoff for Negative/Positive: Negative <= 0.03 Positive >= 0.04 Performed By: #### . AMI 2 Hour ####[address] [address] .AMI 6 Hron 07-27-2024 6 Hour Myoglobin 87.9 ng/mL Normal 17.4-105.7 [facility] Comment on above: Performed By: #### . AMI 6 Hr #### [address] [address] 6 Hour Troponin <0.03 Normal 0.00-0.03 [facility] Comment on above: Result Comment: An i ncreased Troponin-I value, in the absence of myocardial ischemia, may indicate other etiologies of cardiac damage. 99th Percentile Cutoff for Negative/Positive: Negative <= 0.03 Positive >= 0.04 Performed By: #### . AMI 6 Hr #### [address] [place] [address] .AMI Initon 07-27-2024 Initial Myoglobin 97.8 ng/mL Normal 17.4-105.7 [facility] Comment on above: Performed By: #### . AMI Initial #### [address] [address] Initial Troponin <0.03 Normal 0.00-0.03 [facility] Comment on above: Result Comment: An i ncreased Troponin-I value, in the absence of myocardial ischemia, may indicate other etiologies of cardiac damage. 99th Percentile Cutoff for Negative/Positive: Negative <= 0.03 Positive >= 0.04 Performed By: #### . AMI Initial #### [address] [address] .eGFRon 07-27-2024 Estimated GFR 28 mL/min/1.73m? Low >=60 [facility] Comment on above: Result Comment: [facility] have implemented the eGFR calculation approach that does not have a coefficient for race and that conforms to the NKF-ASN Task Force Recommendations. Stages of Chronic Kidney Disease GFR Stage 3a Mild to moderate loss of kidney function 59 to 45 Stage 3b Moderate to severe loss of kidney function 44 to 33 Stage 4 Severe loss of kidney function 29 to 15 Stage 5 Kidney failure Less than 15 GFR calculated using the CKD-Epi Creatinine Equation (2020): eGFR = 142 X min(SCr/?, 1)? X max(SCr /?, 1)-1.200 X 0.9938Age X 1.012 [if female] Abbreviations/Units: eGFR (estimated glomerular filtration rate) = mL/min/1.73 m2 SCr (standardized serum creatinine) = mg/dL ? = 0.7 (females) or 0.9 (males) ? = -0.241 (females) or -0.302 (males) min = indicates the minimum of SCr/? or 1 max = indicates the maximum of SCr/? or 1 Age = years Performed By: #### R ENAL #### [address] [address] CBCon 07-27-2024 Erythrocyte distribution width (RBC) [Ratio] 13.5 % Normal 11.6-14.8 [facility] Comment on above: Performed By: #### R ENAL #### [address] [address] Hematocrit (Bld) [Volume fraction] 31.0 % Low 41.0-53.0 [facility] Comment on above: Performed By: #### R ENAL #### [address] [address] Hemoglobin (Bld) [Mass/Vol] 10.7 g/dL Low 13.5-17.5 [facility] Comment on above: Performed By: #### R ENAL #### [address] [address] MCH (RBC) [Entitic mass] 31.4 pg Normal 27.0-35.0 [facility] Comment on above: Performed By: #### R ENAL #### [address] [address] MCHC 34.7 % Normal 31.0-37.0 [facility] Comment on above: Performed By: #### R ENAL #### [address] [address] MCV (RBC) [Entitic vol] 90.6 fL Normal 80.0-100.0 [facility] Comment on above: Performed By: #### R ENAL #### [address] [address] Platelet 244 x10*3/mcL Normal 150-450 [facility] Comment on above: Performed By: #### R ENAL #### [address] [address] Platelet mean volume (Bld) [Entitic vol] 9.6 fL Normal 6.7-10.6 [facility] Comment on above: Performed By: #### R ENAL #### [address] [address] RBC 3.42 x10*6/mcL Low 4.30-5.80 [facility] Comment on above: Performed By: #### R ENAL #### [facility] [address] [place] [address] WBC 9.1 x10*3/mcL Normal 4.5-11.0 [facility] Comment on above: Performed By: #### R ENAL #### [facility] [address] [place] [address] Magnesiumon 07-27-2024 Magnesium [Mass/Vol] 2.0 mg/dL Normal 1.7-2.4 [facility] Comment on above: Performed By: #### M G #### [address] [address] Nephrology Progress Noteon 0 07-27-2024 Nephrology Progress Note Subjective Patient evaluated while resting in bed, alert and oriented x3, answering questions appropriately. Denies chest pain, shortness of breath. No nausea, vomiting, diarrhea. No fevers, chills. RN reports AM vasovagal event where patient became bradycardic with HR in the 50's, + lightheadedness/dizzi ness after using bathroom. Hospitalist evaluated and EKG completed. Patient reports symptoms have improved. Respirations are easy and unlabored. Review of Systems As stated above Objective Vitals & Measurements T: 36.4 ?C (Oral) HR: 66 (Peripheral) RR: 16 BP: 126/69 SpO2: 97% HT: 182 cm WT: 118.4 kg (Dosing) WT: 118.4 kg BMI: 35.38 Additional Vitals No qualifying data available. Lab Results Microbiology - Current Encounter No qualifying data available. CMP Last Result Event Name Event Result Date/Time Sodium Lvl 137 mmol/L 07/27/24 05:40:00 Potassium Lvl 3.7 mmol/L 07/27/24 05:40:00 Chloride 98 mmol/L 07/27/24 05:40:00 CO2 25 mmol/L 07/27/24 05:40:00 Anion Gap 14 High 07/27/24 05:40:00 Glucose Lvl 114 mg/dL High 07/27/24 05:40:00 BUN 65 mg/dL High 07/27/24 05:40:00 Creatinine Lvl 2.49 mg/dL High 07/27/24 05:40:00 Estimated GFR 28 mL/min/1.73m? Low 07/27/24 05:40:00 BUN Crea Ratio 26.1 High 07/27/24 05:40:00 Bili Total 0.7 mg/dL 07/23/24 10:51:00 Alk Phos 61 IU/L 07/23/24 10:51:00 AST 15 IU/L 07/23/24 10:51:00 ALT 15 IU/L Low 07/23/24 10:51:00 Total Protein 7.5 g/dL 07/23/24 10:51:00 Albumin Lvl 3.6 g/dL 07/27/24 05:40:00 AG Ratio 1.1 07/23/24 10:51:00 Calcium Lvl 8.3 mg/dL Low 07/27/24 05:40:00 CBC Last Result Event Name Event Result Date/Time WBC 9.1 x10 07/27/24 05:40:00 RBC 3.42 x10 07/27/24 05:40:00 Hgb 10.7 g/dL Low 07/27/24 05:40:00 Hct 31 % Low 07/27/24 05:40:00 MCV 90.6 fL 07/27/24 05:40:00 MCH 31.4 pg 07/27/24 05:40:00 MCHC 34.7 % 07/27/24 05:40:00 RDW 13.5 % 07/27/24 05:40:00 Platelet 244 x10 07/27/24 05:40:00 Mean Platelet Volume 9.6 fL 07/27/24 05:40:00 Neutro Auto 66.2 % 07/23/24 10:51:00 Lymph Auto 20.4 % Low 07/23/24 10:51:00 [place] Auto 11.8 % 07/23/24 10:51:00 Eos Auto 0.9 % 07/23/24 10:51:00 Basophil Auto 0.7 % 07/23/24 10:51:00 Neutro Absolute 5 x10 07/23/24 10:51:00 Lymph Absolute 1.5 x10 07/23/24 10:51:00 [place] Absolute 0.9 x10 07/23/24 10:51:00 Eos Absolute 0.1 x10 07/23/24 10:51:00 Baso Absolute 0.1 x10 07/23/24 10:51:00 Urine Studies No qualifying data available. Physical Exam HEENT: Normocephalic and with moist mucous membranes CV: Heart with regular rate and rhythm Lungs: Clear to auscultation bilaterally Abdomen: No tenderness to palpation and with normal bowel sounds Lower Extremities: Trace BLE Medications Inpatient acetaminophen, 650 mg, Oral, q6hr, PRN acetaminophen, 650 mg, Oral, q6hr, PRN aspirin, 81 mg, Oral, Daily calcitriol, 0.5 mcg, Oral, Daily carvedilol, 12.5 mg, Oral, Daily clopidogrel, 75 mg, Oral, Daily Colace, 100 mg, Oral, Daily, PRN Dextrose 10% in Water IV Piggyback, 125 mL, IV Piggyback, As Indicated, PRN glucagon, 1 mg, Subcutaneous, As Indicated, PRN heparin, 5000 units= 1 mL, Subcutaneous, [id number] Times hydrocodone-acetamino phen 5 mg-325 mg oral tablet, 1 tabs, Oral, q4hr, PRN insulin aspart HIGH dose sliding scale BMI > 30, see comments, Subcutaneous, ACHS insulin glargine, 50 units, Subcutaneous, Daily Jardiance, 10 mg, Oral, Daily Lasix, 40 mg, Oral, Daily losartan, 25 mg, Oral, Daily meclizine, 12.5 mg, Oral, BID MiraLax, 17 g= 1 EA, Oral, Daily, PRN naloxone, 0.4 mg= 1 mL, IV Push, q2min, PRN Normal Saline Flush 0.9% injectable solution, 10 mL, IV Push, As Indicated, PRN Normal Saline Flush 0.9% injectable solution, 10 mL, IV Push, BID nystatin 100,000 units/g topical powder, 1 fabio, Topical, BID ondansetron, 4 mg= 2 mL, IV Push, q4hr, PRN PhosLo Gelcap, 667 mg, Oral, WM pravastatin, 40 mg, Oral, Daily Santyl 250 units/g topical ointment, 1 fabio, Topical, Daily tamsulosin, 0.4 mg, Oral, BID Vitamin C, 1000 mg, Oral, Daily Assessment/Plan 1. NEO (acute kidney injury) Resolved admission NEO secondary to pre-renal azotemia and Sensipar induced ATN renal effect. Patient with a creatinine of 2.3 on 07/13/2024 and presented to outside facility with clinical symptoms consistent with uremia and finding of elevated creatinine level greater than 4. No indication for renal biopsy with continued recovery. Continue I & O monitoring, strict BP and glucose control. 2. HTN (hypertension) Chronic baseline history of hypertension was well-managed on patient with use of losartan, furosemide, and spironolactone medications. Plan to resume Losartan at 25mg dosage from prior 100mg dosage. Plan to resume Lasix at 40mg daily dosage--from prior 80mg home dosage. 3. DM type 2 causing CKD stage 4 Continue Jardiance 10mg (more content not included)... Normal [facility] POC Glucose Randomon 025 Glucose [Mass/Vol] 158 mg/dL High 70-99 [facility] Comment on above: Performed By: #### C [id number] #### [address] [address] Glucose [Mass/Vol] 161 mg/dL High 70-99 [facility] Comment on above: Performed By: #### . AMI Initial #### [address] [address] Glucose [Mass/Vol] 198 mg/dL High 70-99 [facility] Comment on above: Performed By: #### C [id number] #### [address] [address] Glucose [Mass/Vol] 124 mg/dL High 70-99 [facility] Comment on above: Performed By: #### C [id number] #### [address] [address] Renal Panelon 07-27-2024 Albumin [Mass/Vol] 3.6 g/dL Normal 3.2-4.9 [facility] Comment on above: Performed By: #### R ENAL #### [address] [address] Anion gap [Moles/Vol] 14 mmol/L High 4-12 [facility] Comment on above: Performed By: #### R ENAL #### [address] [address] Calcium [Mass/Vol] 8.3 mg/dL Low 8.5-10.3 [facility] Comment on above: Performed By: #### R ENAL #### [address] [address] Chloride [Moles/Vol] 98 mmol/L Normal 98-110 [facility] Comment on above: Performed By: #### R ENAL #### [address] [address] CO2 [Moles/Vol] 25 mmol/L Normal 22-32 [facility] Comment on above: Performed By: #### R ENAL #### [address] [address] Creatinine [Mass/Vol] 2.49 mg/dL High 0.61-1.24 [facility] Comment on above: Performed By: #### R ENAL #### [address] [address] Glucose [Mass/Vol] 114 mg/dL High 70-99 [facility] Comment on above: Performed By: #### R ENAL #### [address] [address] Phosphate [Mass/Vol] 4.5 mg/dL Normal 2.5-4.6 [facility] Comment on above: Performed By: #### R ENAL #### [address] [place] [address] Potassium [Moles/Vol] 3.7 mmol/L Normal 3.4-4.8 [facility] Comment on above: Performed By: #### R ENAL #### [address] [place] [address] Sodium [Moles/Vol] 137 mmol/L Normal 133-142 [facility] Comment on above: Performed By: #### R ENAL #### [address] [address] Urea nitrogen [Mass/Vol] 65 mg/dL High 8-26 [facility] Comment on above: Performed By: #### R ENAL #### [address] [address] Urea nitrogen/Creatinine [Mass ratio] 26.1 mg/mg High 10.0-20.0 [facility] Comment on above: Performed By: #### R ENAL #### [address] [address] .eGFRon 07-26-2024 Estimated GFR 28 mL/min/1.73m? Low >=60 [facility] Comment on above: Result Comment: [facility] have implemented the eGFR calculation approach that does not have a coefficient for race and that conforms to the NKF-ASN Task Force Recommendations. Stages of Chronic Kidney Disease GFR Stage 3a Mild to moderate loss of kidney function 59 to 45 Stage 3b Moderate to severe loss of kidney function 44 to 33 Stage 4 Severe loss of kidney function 29 to 15 Stage 5 Kidney failure Less than 15 GFR calculated using the CKD-Epi Creatinine Equation (2020): eGFR = 142 X min(SCr/?, 1)? X max(SCr /?, 1)-1.200 X 0.9938Age X 1.012 [if female] Abbreviations/Units: eGFR (estimated glomerular filtration rate) = mL/min/1.73 m2 SCr (standardized serum creatinine) = mg/dL ? = 0.7 (females) or 0.9 (males) ? = -0.241 (females) or -0.302 (males) min = indicates the minimum of SCr/? or 1 max = indicates the maximum of SCr/? or 1 Age = years Performed By: #### . AMI Initial #### [address] [address] CBCon 07-26-2024 Erythrocyte distribution width (RBC) [Ratio] 13.5 % Normal 11.6-14.8 [facility] Comment on above: Performed By: #### . AMI 6 Hr #### [address] [address] Hematocrit (Bld) [Volume fraction] 32.5 % Low 41.0-53.0 [facility] Comment on above: Performed By: #### . AMI 6 Hr #### [id number] Hemoglobin (Bld) [Mass/Vol] 11.0 g/dL Low 13.5-17.5 [facility] Comment on above: Performed By: #### . AMI 6 Hr #### [id number] MCH (RBC) [Entitic mass] 30.7 pg Normal 27.0-35.0 [facility] Comment on above: Performed By: #### . AMI 6 Hr #### [id number] MCHC 33.9 % Normal 31.0-37.0 [facility] Comment on above: Performed By: #### . AMI 6 Hr #### [address] [id number] MCV (RBC) [Entitic vol] 90.5 fL Normal 80.0-100.0 [facility] [facility] Comment on above: Performed By: #### . AMI 6 Hr #### [place] [id number] Platelet 269 x10*3/mcL Normal 150-450 [facility] Comment on above: Performed By: #### . AMI 6 Hr #### [place] [id number] Platelet mean volume (Bld) [Entitic vol] 9.7 fL Normal 6.7-10.6 [facility] Comment on above: Performed By: #### . AMI 6 Hr #### [place] [id number] RBC 3.59 x10*6/mcL Low 4.30-5.80 [facility] Comment on above: Performed By: #### . AMI 6 Hr #### [place] [id number] WBC 8.2 x10*3/mcL Normal 4.5-11.0 [facility] Comment on above: Performed By: #### . AMI 6 Hr #### [address] [address] Magnesiumon 07-26-2024 Magnesium [Mass/Vol] 2.0 mg/dL Normal 1.7-2.4 [facility] Comment on above: Performed By: #### M G #### [address] [address] Nephrology Progress Noteon 0 07-26-2024 Nephrology Progress Note Subjective Patient evaluated while resting in bed, alert and oriented and answering questions appropriately. Denies nausea, vomiting, diarrhea. Admits to intermittent lightheadedness. Fair appetite, respirations are easy and unlabored. Review of Systems As stated above Objective Vitals & Measurements T: 36.8 ?C (Oral) HR: 67 (Peripheral) RR: 18 BP: 130/72 SpO2: 97% HT: 182 cm WT: 119.3 kg WT: 119.3 kg (Dosing) BMI: 35.38 Additional Vitals No qualifying data available. Lab Results Microbiology - Current Encounter No qualifying data available. CMP Last Result Event Name Event Result Date/Time Sodium Lvl 134 mmol/L 07/26/24 06:23:00 Potassium Lvl 3.9 mmol/L 07/26/24 06:23:00 Chloride 95 mmol/L Low 07/26/24 06:23:00 CO2 25 mmol/L 07/26/24 06:23:00 Anion Gap 14 High 07/26/24 06:23:00 Glucose Lvl 210 mg/dL High 07/26/24 06:23:00 BUN 60 mg/dL High 07/26/24 06:23:00 Creatinine Lvl 2.47 mg/dL High 07/26/24 06:23:00 Estimated GFR 28 mL/min/1.73m? Low 07/26/24 06:23:00 BUN Crea Ratio 24.3 High 07/26/24 06:23:00 Bili Total 0.7 mg/dL 07/23/24 10:51:00 Alk Phos 61 IU/L 07/23/24 10:51:00 AST 15 IU/L 07/23/24 10:51:00 ALT 15 IU/L Low 07/23/24 10:51:00 Total Protein 7.5 g/dL 07/23/24 10:51:00 Albumin Lvl 3.6 g/dL 07/26/24 06:23:00 AG Ratio 1.1 07/23/24 10:51:00 Calcium Lvl 8.3 mg/dL Low 07/26/24 06:23:00 CBC Last Result Event Name Event Result Date/Time WBC 8.2 x10 07/26/24 06:23:00 RBC 3.59 x10 07/26/24 06:23:00 Hgb 11 g/dL Low 07/26/24 06:23:00 Hct 32.5 % Low 07/26/24 06:23:00 MCV 90.5 fL 07/26/24 06:23:00 MCH 30.7 pg 07/26/24 06:23:00 MCHC 33.9 % 07/26/24 06:23:00 RDW 13.5 % 07/26/24 06:23:00 Platelet 269 x10 07/26/24 06:23:00 Mean Platelet Volume 9.7 fL 07/26/24 06:23:00 Neutro Auto 66.2 % 07/23/24 10:51:00 Lymph Auto 20.4 % Low 07/23/24 10:51:00 [place] Auto 11.8 % 07/23/24 10:51:00 Eos Auto 0.9 % 07/23/24 10:51:00 Basophil Auto 0.7 % 07/23/24 10:51:00 Neutro Absolute 5 x10 07/23/24 10:51:00 Lymph Absolute 1.5 x10 07/23/24 10:51:00 [place] Absolute 0.9 x10 07/23/24 10:51:00 Eos Absolute 0.1 x10 07/23/24 10:51:00 Baso Absolute 0.1 x10 07/23/24 10:51:00 Urine Studies No qualifying data available. Diagnostic Results Ultrasound US Renal and Bladder 07/23/24 17:00:35 IMPRESSION: 1. No significant abnormality of the kidneys. 2. Limited evaluation of the urinary bladder demonstrates a Idaz catheter in place. There is no gross abnormality. Signed By: Bentley Pal MD Physical Exam HEENT: Normocephalic and with moist mucous membranes CV: Heart with regular rate and rhythm Lungs: Clear to auscultation bilaterally Abdomen: No tenderness to palpation and with normal bowel sounds Lower Extremities:+2/4 BLE edema Medications Inpatient acetaminophen, 650 mg, Oral, q6hr, PRN acetaminophen, 650 mg, Oral, q6hr, PRN aspirin, 81 mg, Oral, Daily calcitriol, 0.5 mcg, Oral, Daily carvedilol, 12.5 mg, Oral, Daily clopidogrel, 75 mg, Oral, Daily Colace, 100 mg, Oral, Daily, PRN Dextrose 10% in Water IV Piggyback, 125 mL, IV Piggyback, As Indicated, PRN glucagon, 1 mg, Subcutaneous, As Indicated, PRN heparin, 5000 units= 1 mL, Subcutaneous, [id number] Times hydrocodone-acetamino phen 5 mg-325 mg oral tablet, 1 tabs, Oral, q4hr, PRN insulin aspart HIGH dose sliding scale BMI > 30, see comments, Subcutaneous, ACHS insulin glargine, 50 units, Subcutaneous, Daily Jardiance, 10 mg, Oral, Daily Lasix, 40 mg, Oral, Daily losartan, 25 mg, Oral, Daily naloxone, 0.4 mg= 1 mL, IV Push, q2min, PRN Normal Saline Flush 0.9% injectable solution, 10 mL, IV Push, As Indicated, PRN Normal Saline Flush 0.9% injectable solution, 10 mL, IV Push, BID nystatin 100,000 units/g topical powder, 1 fabio, Topical, BID ondansetron, 4 mg= 2 mL, IV Push, q4hr, PRN PhosLo Gelcap, 667 mg, Oral, WM pravastatin, 40 mg, Oral, Daily Santyl 250 units/g topical ointment, 1 fabio, Topical, Daily tamsulosin, 0.4 mg, Oral, BID Vitamin C, 1000 mg, Oral, Daily Assessment/Plan 1. NEO (acute kidney injury) Resolved admission NEO secondary to pre-renal azotemia and Sensipar induced ATN renal effect. Patient with a creatinine of 2.3 on 07/13/2024 and presented to outside facility with clinical symptoms consistent with uremia and finding of elevated creatinine level greater than 4. Patient denies having any recent infectious process, denies any nephrotoxic medication use, denies any sick contacts, presents with significant electrolyte abnormalities consistent with above NEO. No indication for renal biopsy with continued recovery. 2. HTN (hypertension) Chronic baseline history of hypertension was well-managed on patient with use of losartan, furosemide, and spironolactone medications. Plan to resume Losartan at 50mg dosage from [facility] (more content not included)... Normal [facility] POC Glucose Randomon 025 Glucose [Mass/Vol] 249 mg/dL High 70-99 [facility] Comment on above: Performed By: #### C [id number] #### [facility] [address] [place] [address] Glucose [Mass/Vol] 230 mg/dL High 70-99 [facility] Comment on above: Performed By: #### C [id number] ####[facility] [place] [address] Glucose [Mass/Vol] 320 mg/dL High 70-99 [facility] Comment on above: Performed By: #### E GFR #### [facility] [address] [place] [address] Glucose [Mass/Vol] 215 mg/dL High 70-99 [facility] Comment on above: Performed By: #### C [id number] #### [address] [address] Progress Note-Nurseon 2024 Progress Note-Nurse Wound care reassessment completed. Right hallux was debrided at bedside by pump press operator yesterday. Orders in place to start Silvadene cream today to site. Upon assessment patient has Gonzalez grade 1 DFU to plantar right hallux. Wound measures 4.5 x 3.7 x 0.2cm. Wound bed is 25% red granular moist tissue and 75% yellow loosely adherent slough tissue. Wound edges and periwound are notably callused and peeling. Drainage amount is small and serosanguineous in nature. No odor or any other s/sx infection noted at this time. Area cleansed with Vashe and gauze. Pictures of wound taken and sent to Dr Dukes via secure [employer] with concerns of starting Silvadene at this time. DPM responded and gave instructions to start Santyl instead. Orders placed. Santyl applied. Covered with 0.9%NS moistened 2x2 and anchored with large Band-Aids. Electronically signed by Mei Villaseñor 07/26/24 09:14 EST Normal [facility] Renal Panelon 07-26-2024 Albumin [Mass/Vol] 3.6 g/dL Normal 3.2-4.9 [facility] Comment on above: Performed By: #### R ENAL ####[address] [address] Anion gap [Moles/Vol] 14 mmol/L High 4-12 [facility] Comment on above: Performed By: #### R ENAL ####[address] [address] Calcium [Mass/Vol] 8.3 mg/dL Low 8.5-10.3 [facility] Comment on above: Performed By: #### R ENAL ####[address] [address] Chloride [Moles/Vol] 95 mmol/L Low 98-110 [facility] Comment on above: Performed By: #### R ENAL ####[address] [address] CO2 [Moles/Vol] 25 mmol/L Normal 22-32 [facility] Comment on above: Performed By: #### R ENAL ####[address] [address] Creatinine [Mass/Vol] 2.47 mg/dL High 0.61-1.24 [facility] Comment on above: Performed By: #### R ENAL ####[address] [address] Glucose [Mass/Vol] 210 mg/dL High 70-99 [facility] Comment on above: Performed By: #### R ENAL ####[address] [address] Phosphate [Mass/Vol] 4.3 mg/dL Normal 2.5-4.6 [facility] Comment on above: Performed By: #### R ENAL ####[address] [address] Potassium [Moles/Vol] 3.9 mmol/L Normal 3.4-4.8 [facility] Comment on above: Performed By: #### R ENAL ####[address] [address] Sodium [Moles/Vol] 134 mmol/L Normal 133-142 [facility] Comment on above: Performed By: #### R ENAL ####[address] [address] Urea nitrogen [Mass/Vol] 60 mg/dL High 8-26 [facility] Comment on above: Performed By: #### R ENAL ####[address] [address] Urea nitrogen/Creatinine [Mass ratio] 24.3 mg/mg High 10.0-20.0 [facility] Comment on above: Performed By: #### R ENAL ####[address] [address] .eGFRon 07-25-2024 Estimated GFR 29 mL/min/1.73m? Low >=60 [facility] Comment on above: Order Comment: Order added by Discern rule Result Comment: [facility] have implemented the eGFR calculation approach that does not have a coefficient for race and that conforms to the NKF-ASN Task Force Recommendations. Stages of Chronic Kidney Disease GFR Stage 3a Mild to moderate loss of kidney function 59 to 45 Stage 3b Moderate to severe loss of kidney function 44 to 33 Stage 4 Severe loss of kidney function 29 to 15 Stage 5 Kidney failure Less than 15 GFR calculated using the CKD-Epi Creatinine Equation (2020): eGFR = 142 X min(SCr/?, 1)? X max(SCr /?, 1)-1.200 X 0.9938Age X 1.012 [if female] Abbreviations/Units: eGFR (estimated glomerular filtration rate) = mL/min/1.73 m2 SCr (standardized serum creatinine) = mg/dL ? = 0.7 (females) or 0.9 (males) ? = -0.241 (females) or -0.302 (males) min = indicates the minimum of SCr/? or 1 max = indicates the maximum of SCr/? or 1 Age = years Performed By: #### E GFR ####[address] [address] CBCon 07-25-2024 Erythrocyte distribution width (RBC) [Ratio] 13.6 % Normal 11.6-14.8 [facility] Comment on above: Performed By: #### . AMI 6 Hr #### [address] [address] Hematocrit (Bld) [Volume fraction] 31.0 % Low 41.0-53.0 [facility] Comment on above: Performed By: #### . AMI 6 Hr #### [address] [address] Hemoglobin (Bld) [Mass/Vol] 10.7 g/dL Low 13.5-17.5 [facility] Comment on above: Performed By: #### . AMI 6 Hr #### [address] [address] MCH (RBC) [Entitic mass] 31.4 pg Normal 27.0-35.0 [facility] Comment on above: Performed By: #### . AMI 6 Hr #### [address] [address] MCHC 34.6 % Normal 31.0-37.0 [facility] Comment on above: Performed By: #### . AMI 6 Hr #### [address] [address] MCV (RBC) [Entitic vol] 90.9 fL Normal 80.0-100.0 [facility] Comment on above: Performed By: #### . AMI 6 Hr #### [address] [address] Platelet 252 x10*3/mcL Normal 150-450 [facility] Comment on above: Performed By: #### . AMI 6 Hr #### [address] [address] Platelet mean volume (Bld) [Entitic vol] 9.6 fL Normal 6.7-10.6 [facility] Comment on above: Performed By: #### . AMI 6 Hr #### [address] [address] RBC 3.41 x10*6/mcL Low 4.30-5.80 [facility] Comment on above: Performed By: #### . AMI 6 Hr #### [address] [address] WBC 8.0 x10*3/mcL Normal 4.5-11.0 [facility] Comment on above: Performed By: #### . AMI 6 Hr #### [address] [address] Hgb A1con 07-25-2024 Glucose [Mass/Vol] 203 mg/dL High 68-114 [facility] Comment on above: Result Comment: Math ematical Calc approx. The mean gluc equivalency of A1c Performed By: #### E GFR #### [address] [address] Hgb A1c 8.7 % A1c High 4.0-5.6 [facility] Comment on above: Result Comment: Refe rence Range: 4.0 - 5.6 % Normal 5.7 - 6.4 % Pre-Diabetes > 6.5 % Diabetes Performed By: #### E GFR #### [address] [address] Magnesiumon 07-25-2024 Magnesium [Mass/Vol] 1.7 mg/dL Normal 1.7-2.4 [facility] Comment on above: Performed By: #### M G #### [address] [place] [address] Nephrology Progress Noteon 0 07-25-2024 Nephrology Progress Note Subjective Patient reports some light headed when he was started on Mg infusion. He denies have any chest anguiano or shortness of breath. Patient also reports no fever, chills, nausea or vomiting. Review of Systems as noted above Objective Vitals & Measurements T: 36.7 ?C (Oral) HR: 79 (Monitored) RR: 13 BP: 123/66 SpO2: 97% HT: 182 cm WT: 117.4 kg BMI: 35.38 Additional Vitals No qualifying data available. Lab Results Microbiology - Current Encounter No qualifying data available. CMP Last Result Event Name Event Result Date/Time Sodium Lvl 137 mmol/L 07/25/24 04:06:00 Potassium Lvl 3.7 mmol/L 07/25/24 04:06:00 Chloride 99 mmol/L 07/25/24 04:06:00 CO2 25 mmol/L 07/25/24 04:06:00 Anion Gap 13 High 07/25/24 04:06:00 Glucose Lvl 162 mg/dL High 07/25/24 04:06:00 BUN 73 mg/dL High 07/25/24 04:06:00 Creatinine Lvl 2.42 mg/dL High 07/25/24 04:06:00 Estimated GFR 29 mL/min/1.73m? Low 07/25/24 04:06:00 BUN Crea Ratio 30.2 High 07/25/24 04:06:00 Bili Total 0.7 mg/dL 07/23/24 10:51:00 Alk Phos 61 IU/L 07/23/24 10:51:00 AST 15 IU/L 07/23/24 10:51:00 ALT 15 IU/L Low 07/23/24 10:51:00 Total Protein 7.5 g/dL 07/23/24 10:51:00 Albumin Lvl 3.6 g/dL 07/25/24 04:06:00 AG Ratio 1.1 07/23/24 10:51:00 Calcium Lvl 8 mg/dL Low 07/25/24 04:06:00 CBC Last Result Event Name Event Result Date/Time WBC 8 x10 07/25/24 04:06:00 RBC 3.41 x10 07/25/24 04:06:00 Hgb 10.7 g/dL Low 07/25/24 04:06:00 Hct 31 % Low 07/25/24 04:06:00 MCV 90.9 fL 07/25/24 04:06:00 MCH 31.4 pg 07/25/24 04:06:00 MCHC 34.6 % 07/25/24 04:06:00 RDW 13.6 % 07/25/24 04:06:00 Platelet 252 x10 07/25/24 04:06:00 Mean Platelet Volume 9.6 fL 07/25/24 04:06:00 Neutro Auto 66.2 % 07/23/24 10:51:00 Lymph Auto 20.4 % Low 07/23/24 10:51:00 [place] Auto 11.8 % 07/23/24 10:51:00 Eos Auto 0.9 % 07/23/24 10:51:00 Basophil Auto 0.7 % 07/23/24 10:51:00 Neutro Absolute 5 x10 07/23/24 10:51:00 Lymph Absolute 1.5 x10 07/23/24 10:51:00 [place] Absolute 0.9 x10 07/23/24 10:51:00 Eos Absolute 0.1 x10 07/23/24 10:51:00 Baso Absolute 0.1 x10 07/23/24 10:51:00 Diagnostic Results Diagnostic Radiology XR Chest 1 View 07/23/24 11:36:53 IMPRESSION: Bibasilar scarring or atelectasis. No evidence of congestive heart failure. Signed By: Verónica Talley MD Ultrasound US Renal and Bladder 07/23/24 17:00:35 IMPRESSION: 1. No significant abnormality of the kidneys. 2. Limited evaluation of the urinary bladder demonstrates a Diaz catheter in place. There is no gross abnormality. Signed By: Bentley Pal MD Physical Exam HEENT: Normocephalic and with moist mucous membranes CV: Heart with regular rate and rhythm Lungs: Clear to auscultation bilaterally Abdomen: No tenderness to palpation and with normal bowel sounds Lower extremities: No edema Medications Inpatient acetaminophen, 650 mg, Oral, q6hr, PRN acetaminophen, 650 mg, Oral, q6hr, PRN aspirin, 81 mg, Oral, Daily calcitriol, 0.5 mcg, Oral, Daily carvedilol, 12.5 mg, Oral, Daily clopidogrel, 75 mg, Oral, Daily Colace, 100 mg, Oral, Daily, PRN Dextrose 10% in Water IV Piggyback, 125 mL, IV Piggyback, As Indicated, PRN glucagon, 1 mg, Subcutaneous, As Indicated, PRN heparin, 5000 units= 1 mL, Subcutaneous, [id number]-Zgbnicov Times hydrocodone-acetamino phen 5 mg-325 mg oral tablet, 1 tabs, Oral, q4hr, PRN insulin aspart HIGH dose sliding scale BMI > 30, see comments, Subcutaneous, ACHS insulin glargine, 50 units, Subcutaneous, Daily Jardiance, 10 mg, Oral, Daily Lasix, 40 mg, Oral, Daily losartan, 25 mg, Oral, Daily naloxone, 0.4 mg= 1 mL, IV Push, q2min, PRN Normal Saline Flush 0.9% injectable solution, 10 mL, IV Push, As Indicated, PRN Normal Saline Flush 0.9% injectable solution, 10 mL, IV Push, BID nystatin 100,000 units/g topical powder, 1 fabio, Topical, BID ondansetron, 4 mg= 2 mL, IV Push, q4hr, PRN PhosLo Gelcap, 667 mg, Oral, WM pravastatin, 40 mg, Oral, Daily Silvadene 1% topical cream, 1 fabio, Topical, Daily tamsulosin, 0.4 mg, Oral, BID Vitamin C, 1000 mg, Oral, Daily Assessment/Plan 1. NEO (acute kidney injury) Resolved admission NEO secondary to pre-renal azotemia and Sensipar induced ATN renal effect. Patient with a creatinine of 2.3 on 07/13/2024 and presented to outside facility with clinical symptoms consistent with uremia and finding of elevated creatinine level greater than 4. Patient denies having any recent infectious process, denies any nephrotoxic medication use, denies any sick contacts, presents with significant electrolyte abnormalities consistent with above NEO. No indication for renal biopsy with continued recovery. CCT 30mins 2. HTN (hypertension) Chronic baseline history of hypertension was well-managed on patient with use of losartan, furosemide, and spironolactone (more content not included)... Normal [facility] POC Glucose Randomon 07-25- 025 Glucose [Mass/Vol] 229 mg/dL High 70-99 [facility] Comment on above: Performed By: #### C [id number] #### [address] [address] Glucose [Mass/Vol] 153 mg/dL High 70-99 [facility] Comment on above: Performed By: #### . AMI 6 Hr #### [address] [address] Glucose [Mass/Vol] 118 mg/dL High 70-99 [facility] Comment on above: Performed By: #### C [id number] #### [address] [address] Glucose [Mass/Vol] 152 mg/dL High 70-99 [facility] Comment on above: Performed By: #### M G #### [address] [address] Glucose [Mass/Vol] 143 mg/dL High 70-99 [facility] Comment on above: Performed By: #### M G #### [address] [address] Progress Note-Nurseon 2024 Progress Note-Nurse Wound care consult completed Patient assessed for open area to right hallux. Upon assessment patient has Gonzalez grade 1 DFU to plantar right hallux. Wound measures 4.5 x 3.4 x 0.1cm. Wound bed is 80% red granular moist tissue and 20% yellow/brown loosely adherent slough tissue. Wound edges and periwound are notably callused and peeling. Drainage amount is small and serosanguineous in nature. No odor or any other s/sx infection noted at this time. Patient stated he has been seeing outpatient podiatry however could not recall name of physician. Area cleansed with vashe and gauze. Urgo clean applied to wound bed and then covered with tegaderm. Wound care recommendations discussed with attending provider as podiatry has been consulted but has not seen patient as of yet. Orders written Electronically signed by Bell Espinoza 07/25/24 12:41 EST Normal [facility] Renal Panelon 07-25-2024 Albumin [Mass/Vol] 3.6 g/dL Normal 3.2-4.9 [facility] Comment on above: Performed By: #### R ENAL #### [address] [place] [address] Anion gap [Moles/Vol] 13 mmol/L High 4-12 [facility] Comment on above: Performed By: #### R ENAL #### [address] [place] [address] Calcium [Mass/Vol] 8.0 mg/dL Low 8.5-10.3 [facility] Comment on above: Performed By: #### R ENAL #### [address] [place] [address] Chloride [Moles/Vol] 99 mmol/L Normal 98-110 [facility] Comment on above: Performed By: #### R ENAL #### [address] [place] [address] CO2 [Moles/Vol] 25 mmol/L Normal 22-32 [facility] Comment on above: Performed By: #### R ENAL #### [address] [place] [address] Creatinine [Mass/Vol] 2.42 mg/dL High 0.61-1.24 [facility] Comment on above: Performed By: #### R ENAL #### [address] [place] [address] Glucose [Mass/Vol] 162 mg/dL High 70-99 [facility] Comment on above: Performed By: #### R ENAL #### [address] [place] [address] Phosphate [Mass/Vol] 4.1 mg/dL Normal 2.5-4.6 [facility] Comment on above: Performed By: #### R ENAL #### [place] [address] [place] [address] Potassium [Moles/Vol] 3.7 mmol/L Normal 3.4-4.8 [facility] Comment on above: Performed By: #### R ENAL #### [address] [address] Sodium [Moles/Vol] 137 mmol/L Normal 133-142 [facility] Comment on above: Performed By: #### R ENAL #### [address] [address] Urea nitrogen [Mass/Vol] 73 mg/dL High 8-26 [facility] Comment on above: Performed By: #### R ENAL #### [address] [address] Urea nitrogen/Creatinine [Mass ratio] 30.2 mg/mg High 10.0-20.0 [facility] Comment on above: Performed By: #### R ENAL #### [address] [address] .eGFRon 07-24-2024 Estimated GFR 22 mL/min/1.73m? Low >=60 [facility] Comment on above: Order Comment: Order added by Discern rule Result Comment: [facility] have implemented the eGFR calculation approach that does not have a coefficient for race and that conforms to the NKF-ASN Task Force Recommendations. Stages of Chronic Kidney Disease GFR Stage 3a Mild to moderate loss of kidney function 59 to 45 Stage 3b Moderate to severe loss of kidney function 44 to 33 Stage 4 Severe loss of kidney function 29 to 15 Stage 5 Kidney failure Less than 15 GFR calculated using the CKD-Epi Creatinine Equation (2020): eGFR = 142 X min(SCr/?, 1)? X max(SCr /?, 1)-1.200 X 0.9938Age X 1.012 [if female] Abbreviations/Units: eGFR (estimated glomerular filtration rate) = mL/min/1.73 m2 SCr (standardized serum creatinine) = mg/dL ? = 0.7 (females) or 0.9 (males) ? = -0.241 (females) or -0.302 (males) min = indicates the minimum of SCr/? or 1 max = indicates the maximum of SCr/? or 1 Age = years Performed By: #### E GFR #### [address] [address] CBCon 07-24-2024 Erythrocyte distribution width (RBC) [Ratio] 13.3 % Normal 11.6-14.8 [facility] Comment on above: Performed By: #### E GFR #### [place] [id number] Hematocrit (Bld) [Volume fraction] 32.1 % Low 41.0-53.0 [facility] Comment on above: Performed By: #### E GFR #### [place] [id number] Hemoglobin (Bld) [Mass/Vol] 10.7 g/dL Low 13.5-17.5 [facility] Comment on above: Performed By: #### E GFR #### [address] [address] MCH (RBC) [Entitic mass] 30.7 pg Normal 27.0-35.0 [facility] Comment on above: Performed By: #### E GFR #### [place] [id number] MCHC 33.5 % Normal 31.0-37.0 [facility] Comment on above: Performed By: #### E GFR #### [place] [id number] MCV (RBC) [Entitic vol] 91.9 fL Normal 80.0-100.0 [facility] Comment on above: Performed By: #### E GFR #### [address] [address] Platelet 251 x10*3/mcL Normal 150-450 [facility] Comment on above: Performed By: #### E GFR #### [place] [id number] Platelet mean volume (Bld) [Entitic vol] 9.7 fL Normal 6.7-10.6 [facility] Comment on above: Performed By: #### E GFR #### [address] [address] RBC 3.49 x10*6/mcL Low 4.30-5.80 [facility] Comment on above: Performed By: #### E GFR #### [address] [address] WBC 7.5 x10*3/mcL Normal 4.5-11.0 [facility] Comment on above: Performed By: #### E GFR #### [place] [id number] Ionized Calciumon 07-24-2024 Calcium Ionized 1.02 mmol/L Low 1.12-1.32 [facility] Comment on above: Performed By: #### . AMI 6 Hr #### [place] [address] Magnesiumon 07-24-2024 Magnesium [Mass/Vol] 2.2 mg/dL Normal 1.7-2.4 [facility] Comment on above: Performed By: #### M G #### [place] [id number] Nephrology Progress Noteon 0 07-24-2024 Nephrology Progress Note Subjective Patient reports no chest pain or shortness of breath. Patient also reports no fever, chills, nausea or vomiting. Review of Systems as noted above Objective Vitals & Measurements T: 36.7 ?C (Oral) HR: 65 (Monitored) RR: 11 BP: 133/56 SpO2: 93% HT: 182 cm WT: 118.9 kg BMI: 35.38 Additional Vitals No qualifying data available. Lab Results Microbiology - Current Encounter No qualifying data available. CMP Last 3 Results Event Name Event Result Date/Time Sodium Lvl 135 mmol/L 07/24/24 04:30:00 Sodium Lvl 133 mmol/L 07/23/24 10:51:00 Potassium Lvl 4.4 mmol/L 07/24/24 04:30:00 Potassium Lvl 4 mmol/L 07/23/24 10:51:00 Chloride 100 mmol/L 07/24/24 04:30:00 Chloride 98 mmol/L 07/23/24 10:51:00 CO2 23 mmol/L 07/24/24 04:30:00 CO2 23 mmol/L 07/23/24 10:51:00 Anion Gap 12 07/24/24 04:30:00 Anion Gap 12 07/23/24 10:51:00 Glucose Lvl 135 mg/dL High 07/24/24 04:30:00 Glucose Lvl 199 mg/dL High 07/23/24 10:51:00 BUN 95 mg/dL High 07/24/24 04:30:00 BUN 120 mg/dL High 07/23/24 10:51:00 Creatinine Lvl 3.04 mg/dL High 07/24/24 04:30:00 Creatinine Lvl 4.11 mg/dL High 07/23/24 10:51:00 Estimated GFR 22 mL/min/1.73m? Low 07/24/24 04:30:00 Estimated GFR 15 mL/min/1.73m? Low 07/23/24 10:51:00 BUN Crea Ratio 31.2 High 07/24/24 04:30:00 BUN Crea Ratio 29.2 High 07/23/24 10:51:00 Bili Total 0.7 mg/dL 07/23/24 10:51:00 Alk Phos 61 IU/L 07/23/24 10:51:00 AST 15 IU/L 07/23/24 10:51:00 ALT 15 IU/L Low 07/23/24 10:51:00 Total Protein 7.5 g/dL 07/23/24 10:51:00 Albumin Lvl 3.5 g/dL 07/24/24 04:30:00 Albumin Lvl 4 g/dL 07/23/24 10:51:00 AG Ratio 1.1 07/23/24 10:51:00 Calcium Lvl 7.5 mg/dL Low 07/24/24 04:30:00 Calcium Lvl 6.9 mg/dL Low 07/23/24 10:51:00 CBC Last Result Event Name Event Result Date/Time WBC 7.5 x10 07/24/24 04:30:00 RBC 3.49 x10 07/24/24 04:30:00 Hgb 10.7 g/dL Low 07/24/24 04:30:00 Hct 32.1 % Low 07/24/24 04:30:00 MCV 91.9 fL 07/24/24 04:30:00 MCH 30.7 pg 07/24/24 04:30:00 MCHC 33.5 % 07/24/24 04:30:00 RDW 13.3 % 07/24/24 04:30:00 Platelet 251 x10 07/24/24 04:30:00 Mean Platelet Volume 9.7 fL 07/24/24 04:30:00 Neutro Auto 66.2 % 07/23/24 10:51:00 Lymph Auto 20.4 % Low 07/23/24 10:51:00 [place] Auto 11.8 % 07/23/24 10:51:00 Eos Auto 0.9 % 07/23/24 10:51:00 Basophil Auto 0.7 % 07/23/24 10:51:00 Neutro Absolute 5 x10 07/23/24 10:51:00 Lymph Absolute 1.5 x10 07/23/24 10:51:00 [place] Absolute 0.9 x10 07/23/24 10:51:00 Eos Absolute 0.1 x10 07/23/24 10:51:00 Baso Absolute 0.1 x10 07/23/24 10:51:00 Diagnostic Results Diagnostic Radiology XR Chest 1 View 07/23/24 11:36:53 IMPRESSION: Bibasilar scarring or atelectasis. No evidence of congestive heart failure. Signed By: Verónica Talley MD Ultrasound US Renal and Bladder 07/23/24 17:00:35 IMPRESSION: 1. No significant abnormality of the kidneys. 2. Limited evaluation of the urinary bladder demonstrates a Diaz catheter in place. There is no gross abnormality. Signed By: Bentley Pal MD Physical Exam HEENT: Normocephalic and with moist mucous membranes CV: Heart with regular rate and rhythm Lungs: Clear to auscultation bilaterally Abdomen: No tenderness to palpation and with normal bowel sounds Lower extremities: +1/4 LE edema Medications Inpatient acetaminophen, 650 mg, Oral, q6hr, PRN acetaminophen, 650 mg, Oral, q6hr, PRN aspirin, 81 mg, Oral, Daily calcitriol, 0.5 mcg, Oral, Daily carvedilol, 12.5 mg, Oral, Daily clopidogrel, 75 mg, Oral, Daily Colace, 100 mg, Oral, Daily, PRN Dextrose 10% in Water IV Piggyback, 125 mL, IV Piggyback, As Indicated, PRN glucagon, 1 mg, Subcutaneous, As Indicated, PRN heparin, 5000 units= 1 mL, Subcutaneous, e0dv-Byspvzoc Times hydrocodone-acetamino phen 5 mg-325 mg oral tablet, 1 tabs, Oral, q4hr, PRN insulin aspart HIGH dose sliding scale BMI > 30, see comments, Subcutaneous, ACHS insulin glargine, 50 units, Subcutaneous, Daily naloxone, 0.4 mg= 1 mL, IV Push, q2min, PRN Normal Saline Flush 0.9% injectable solution, 10 mL, IV Push, As Indicated, PRN Normal Saline Flush 0.9% injectable solution, 10 mL, IV Push, BID nystatin 100,000 units/g topical powder, 1 fabio, Topical, BID ondansetron, 4 mg= 2 mL, IV Push, q4hr, PRN PhosLo Gelcap, 667 mg, Oral, WM pravastatin, 40 mg, Oral, Daily tamsulosin, 0.4 mg, Oral, BID Vitamin C, 1000 mg, Oral, Daily Assessment/Plan 1. NEO (acute kidney injury) Resolving admission NEO secondary to pre-renal azotemia and some additional post renal azotemia effect. Plan for an additional treatment with 1L of IVF today. Patient with a creatinine of 2.3 on 07/13/2024 and presented to outside facility with clinical symptoms consistent with uremia and finding of elevated creatinine level greater (more content not included)... Normal [facility] POC Glucose Randomon 025 Glucose [Mass/Vol] 255 mg/dL High 70-99 [facility] Comment on above: Performed By: #### . AMI 6 Hr #### [address] [address] Glucose [Mass/Vol] 190 mg/dL High 70-99 [facility] Comment on above: Performed By: #### E GFR #### [address] [address] Glucose [Mass/Vol] 276 mg/dL High 70-99 [facility] Comment on above: Performed By: #### E GFR #### [address] [address] Phosphoruson 07-24-2024 Phosphate [Mass/Vol] 4.2 mg/dL Normal 2.5-4.6 [facility] Comment on above: Performed By: #### R ENAL #### [address] [address] Renal Panelon 07-24-2024 Albumin [Mass/Vol] 3.5 g/dL Normal 3.2-4.9 [facility] Comment on above: Performed By: #### C [id number] #### [address] [address] Anion gap [Moles/Vol] 12 mmol/L Normal 4-12 [facility] Comment on above: Performed By: #### C [id number] #### [address] [address] Calcium [Mass/Vol] 7.5 mg/dL Low 8.5-10.3 [facility] Comment on above: Performed By: #### C [id number] #### [address] [address] Chloride [Moles/Vol] 100 mmol/L Normal 98-110 [facility] Comment on above: Performed By: #### C [id number] #### [address] [address] CO2 [Moles/Vol] 23 mmol/L Normal 22-32 [facility] Comment on above: Performed By: #### C [id number] #### [address] [address] Creatinine [Mass/Vol] 3.04 mg/dL High 0.61-1.24 [facility] Comment on above: Performed By: #### C [id number] #### [address] [place] [address] Glucose [Mass/Vol] 135 mg/dL High 70-99 [facility] Comment on above: Performed By: #### C [id number] #### [address] [address] Phosphate [Mass/Vol] 5.0 mg/dL High 2.5-4.6 [facility] Comment on above: Performed By: #### C [id number] #### [address] [address] Potassium [Moles/Vol] 4.4 mmol/L Normal 3.4-4.8 [facility] Comment on above: Result Comment: This test result could be falsely elevated due to interference from the hemolyzed condition of the specimen. Performed By: #### C [id number] #### [address] [address] Sodium [Moles/Vol] 135 mmol/L Normal 133-142 [facility] Comment on above: Performed By: #### C [id number] #### [address] [address] Urea nitrogen [Mass/Vol] 95 mg/dL High 8-26 [facility] Comment on above: Performed By: #### C D:[id number] #### [address] [address] Urea nitrogen/Creatinine [Mass ratio] 31.2 mg/mg High 10.0-20.0 [facility] Comment on above: Performed By: #### C [id number] #### [address] [address] .UA Microscp Aon 07-23-2024 UA Mucus Present Normal Absent [facility] Comment on above: Performed By: #### E GFR #### [address] [address] UA RBC Quant 0 /HPF Normal 0-5 [facility] Comment on above: Performed By: #### E GFR #### [address] [place] [address] UA Squepi Cells Quant <1 Normal 0-29 [facility] Comment on above: Performed By: #### E GFR #### [address] [address] UA WBC Quant 0 /HPF Normal 0-5 [facility] Comment on above: Performed By: #### E GFR #### [address] [address] .eGFRon 07-23-2024 Estimated GFR 15 mL/min/1.73m? Low >=60 [facility] Comment on above: Order Comment: Order added by Discern rule Result Comment: [facility] have implemented the eGFR calculation approach that does not have a coefficient for race and that conforms to the NKF-ASN Task Force Recommendations. Stages of Chronic Kidney Disease GFR Stage 3a Mild to moderate loss of kidney function 59 to 45 Stage 3b Moderate to severe loss of kidney function 44 to 33 Stage 4 Severe loss of kidney function 29 to 15 Stage 5 Kidney failure Less than 15 GFR calculated using the CKD-Epi Creatinine Equation (2020): eGFR = 142 X min(SCr/?, 1)? X max(SCr /?, 1)-1.200 X 0.9938Age X 1.012 [if female] Abbreviations/Units: eGFR (estimated glomerular filtration rate) = mL/min/1.73 m2 SCr (standardized serum creatinine) = mg/dL ? = 0.7 (females) or 0.9 (males) ? = -0.241 (females) or -0.302 (males) min = indicates the minimum of SCr/? or 1 max = indicates the maximum of SCr/? or 1 Age = years Performed By: #### E GFR #### [address] [address] BNPon 07-23-2024 Natriuretic peptide B (Bld) [Mass/Vol] 114 pg/mL High 0-100 [facility] Comment on above: Performed By: #### C [id number] #### [address] [address] CBC w/ Diffon 07-23-2024 Erythrocyte distribution width (RBC) [Ratio] 13.5 % Normal 11.6-14.8 [facility] Comment on above: Performed By: #### C BC ####[address] [address] Hematocrit (Bld) [Volume fraction] 32.0 % Low 41.0-53.0 [facility] Comment on above: Performed By: #### C BC ####[id number] Hemoglobin (Bld) [Mass/Vol] 11.1 g/dL Low 13.5-17.5 [facility] Comment on above: Performed By: #### C BC ####[id number] MCH (RBC) [Entitic mass] 31.4 pg Normal 27.0-35.0 [facility] Comment on above: Performed By: #### C BC ####[address] [place] [id number] MCHC 34.7 % Normal 31.0-37.0 [facility] Comment on above: Performed By: #### C BC ####[address] [place] [id number] MCV (RBC) [Entitic vol] 90.6 fL Normal 80.0-100.0 [facility] Comment on above: Performed By: #### C BC ####[address] [place] [id number] Platelet 267 x10*3/mcL Normal 150-450 [facility] Comment on above: Performed By: #### C BC ####[id number] Platelet mean volume (Bld) [Entitic vol] 9.1 fL Normal 6.7-10.6 [facility] Comment on above: Performed By: #### C BC ####[address] [place] [id number] RBC 3.53 x10*6/mcL Low 4.30-5.80 [facility] Comment on above: Performed By: #### C BC ####[address] [place] [address] WBC 7.5 x10*3/mcL Normal 4.5-11.0 [facility] Comment on above: Performed By: #### C BC ####[address] [address] CMPon 07-23-2024 Albumin [Mass/Vol] 4.0 g/dL Normal 3.2-4.9 [facility] Comment on above: Performed By: #### R ENAL #### [address] [address] Albumin/Globulin [Mass ratio] 1.1 {ratio} Normal 1.1-2.2 [facility] Comment on above: Performed By: #### R ENAL #### [address] [address] Alk Phos 61 IU/L Normal 32-91 [facility] Comment on above: Performed By: #### R ENAL #### [address] [address] ALT [Catalytic activity/Vol] 15 U/L Low 17-63 [facility] Comment on above: Performed By: #### R ENAL #### [address] [address] Anion gap [Moles/Vol] 12 mmol/L Normal 4-12 [facility] Comment on above: Performed By: #### R ENAL #### [address] [address] AST [Catalytic activity/Vol] 15 U/L Normal 15-41 [facility] Comment on above: Performed By: #### R ENAL #### [address] [address] Bili Total 0.7 mg/dL Normal 0.3-1.2 [facility] Comment on above: Performed By: #### R ENAL #### [address] [place] [address] Calcium [Mass/Vol] 6.9 mg/dL Low 8.5-10.3 [facility] Comment on above: Performed By: #### R ENAL #### [address] [address] Chloride [Moles/Vol] 98 mmol/L Normal 98-110 [facility] Comment on above: Performed By: #### R ENAL #### [address] [address] CO2 [Moles/Vol] 23 mmol/L Normal 22-32 [facility] Comment on above: Performed By: #### R ENAL #### [address] [address] Creatinine [Mass/Vol] 4.11 mg/dL High 0.61-1.24 [facility] Comment on above: Performed By: #### R ENAL #### [address] [address] Glucose [Mass/Vol] 199 mg/dL High 70-99 [facility] Comment on above: Performed By: #### R ENAL #### [address] [address] Potassium [Moles/Vol] 4.0 mmol/L Normal 3.4-4.8 [facility] Comment on above: Performed By: #### R ENAL #### [address] [address] Protein [Mass/Vol] 7.5 g/dL Normal 6.5-8.1 [facility] Comment on above: Performed By: #### R ENAL #### [address] [address] Sodium [Moles/Vol] 133 mmol/L Normal 133-142 [facility] Comment on above: Performed By: #### R ENAL #### [address] [address] Urea nitrogen [Mass/Vol] 120 mg/dL High 8-26 [facility] Comment on above: Performed By: #### R ENAL #### [address] [address] Urea nitrogen/Creatinine [Mass ratio] 29.2 mg/mg High 10.0-20.0 [facility] Comment on above: Performed By: #### R ENAL #### [address] [address] Diff Autoon 07-23-2024 Baso Absolute 0.1 x10*3/mcL Normal 0.0-0.2 [facility] Comment on above: Performed By: #### C [id number] #### [address] [address] Basophils/100 WBC (Bld) 0.7 % Normal 0.0-1.2 [facility] Comment on above: Performed By: #### C [id number] #### [address] [address] Eos Absolute 0.1 x10*3/mcL Normal 0.0-0.4 [facility] Comment on above: Performed By: #### C D:[id number] #### [address] [address] Eosinophils/100 WBC (Bld) 0.9 % Normal 0.0-6.1 [facility] Comment on above: Performed By: #### C [id number] #### [address] [address] Lymph Absolute 1.5 x10*3/mcL Normal 1.0-4.8 [facility] Comment on above: Performed By: #### C [id number] #### [address] [address] Lymphocytes/100 WBC (Bld) 20.4 % Low 27.2-40.8 [facility] Comment on above: Performed By: #### C [id number] #### [address] [address] [place] Absolute 0.9 x10*3/mcL Normal 0.3-1.1 [facility] Comment on above: Performed By: #### C [id number] #### [address] [address] Monocytes/100 WBC (Bld) 11.8 % Normal 4.7-13.9 B [facility] Comment on above: Performed By: #### C [id number] #### [address] [address] Neutro Absolute 5.0 x10*3/mcL Normal 1.8-7.7 [facility] Comment on above: Performed By: #### C [id number] #### [address] [address] Neutro Auto 66.2 % Normal 47.2-70.8 [facility] Comment on above: Performed By: #### C [id number] #### [address] [address] Ionized Calciumon 07-23-2024 Calcium Ionized 0.95 mmol/L Low 1.12-1.32 [facility] Comment on above: Performed By: #### M G #### [address] [address] Lactic Acid, Randomon 2024 Lactic Acid Lvl 1.0 mmol/L Normal 0.5-2.0 [facility] Comment on above: Performed By: #### . AMI 6 Hr #### [address] [address] Magnesiumon 07-23-2024 Magnesium [Mass/Vol] 1.7 mg/dL Normal 1.7-2.4 [facility] Comment on above: Performed By: #### R ENAL #### [address] [address] POC Glucose Randomon 025 Glucose [Mass/Vol] 192 mg/dL High 70-99 [facility] Comment on above: Performed By: #### M G #### [address] [address] Glucose [Mass/Vol] 176 mg/dL High 70-99 [facility] Comment on above: Performed By: #### . AMI 6 Hr #### [address] [address] Glucose [Mass/Vol] 191 mg/dL High 70-99 [facility] Comment on above: Performed By: #### C D:[id number] ####[address] [address] PTH-INTon 07-23-2024 PTH Intact 236 pg/mL High 12-88 [facility] Comment on above: Performed By: #### . AMI 6 Hr #### [address] [address] Phosphoruson 07-23-2024 Phosphate [Mass/Vol] 4.6 mg/dL Normal 2.5-4.6 [facility] Comment on above: Performed By: #### M G #### [address] [address] U Crea Randomon 07-23-2024 Creatinine [Mass/Vol] 54.1 mg/dL Normal [facility] Comment on above: Result Comment: The reference range has not been established for this test on a random urine sample. The test result should be interpreted based on clinical context. Performed By: #### E GFR #### [address] [address] U Eoon 07-23-2024 Eosinophil Smear Urine WBC QNS Normal None Bl [facility] Comment on above: Performed By: #### C [id number] #### [address] [address] UA Clarity Clear Normal Clear [facility] Comment on above: Performed By: #### C D:[id number] #### [address] [address] Ur WBC Qnt for Eos Cnt 0 /HPF Normal 0-5 Bl [facility] Comment on above: Performed By: #### C D:[id number] #### [address] [address] U Lyteson 07-23-2024 Chloride [Moles/Vol] 62 mmol/L Normal [facility] Comment on above: Performed By: #### E GFR #### [address] [address] Potassium [Moles/Vol] 19.1 mmol/L Normal [facility] Comment on above: Performed By: #### E GFR #### [address] [address] Sodium [Moles/Vol] 65 mmol/L Normal [facility] Comment on above: Performed By: #### E GFR #### [address] [address] U Na Randomon 07-23-2024 Sodium [Moles/Vol] 65 mmol/L Normal [facility] Comment on above: Performed By: #### C D:[id number] #### [address] [address] UA w Culture if Indon 2024 Color (U) Colorless Normal Yellow [facility] Comment on above: Order Comment: If pa tient catheterized >2 days, discontinue current catheter, and insert new catheter prior to collection Performed By: #### R ENAL #### [address] [address] Glucose (U) [Mass/Vol] 300 mg/dL Abnormal Negative [facility] Comment on above: Order Comment: If pa tient catheterized >2 days, discontinue current catheter, and insert new catheter prior to collection Performed By: #### R ENAL #### [address] [address] Ketones Ql (U) Negative Normal Negative [facility] Comment on above: Order Comment: If pa tient catheterized >2 days, discontinue current catheter, and insert new catheter prior to collection Performed By: #### R ENAL #### [address] [address] UA Blood Negative Normal Negative [facility] Comment on above: Order Comment: If pa tient catheterized >2 days, discontinue current catheter, and insert new catheter prior to collection Performed By: #### R ENAL #### [address] [address] UA Clarity Clear Normal Clear [facility] Comment on above: Order Comment: If pa tient catheterized >2 days, discontinue current catheter, and insert new catheter prior to collection Performed By: #### R ENAL #### [address] [address] UA Leukocyte Esterase Negative Normal Negative [facility] Comment on above: Order Comment: If pa tient catheterized >2 days, discontinue current catheter, and insert new catheter prior to collection Performed By: #### R ENAL #### [address] [address] UA Nitrite Negative Normal Negative [facility] Comment on above: Order Comment: If pa tient catheterized >2 days, discontinue current catheter, and insert new catheter prior to collection Performed By: #### R ENAL #### [address] [address] UA pH 5.0 Normal 4.5 - 7.8 [facility] Comment on above: Order Comment: If pa tient catheterized >2 days, discontinue current catheter, and insert new catheter prior to collection Performed By: #### R ENAL #### [address] [address] UA Protein Negative Normal Negative [facility] Comment on above: Order Comment: If pa tient catheterized >2 days, discontinue current catheter, and insert new catheter prior to collection Performed By: #### R ENAL #### [address] [address] UA Source Catheter Normal [facility] Comment on above: Order Comment: If pa tient catheterized >2 days, discontinue current catheter, and insert new catheter prior to collection Performed By: #### R ENAL #### [address] [address] UA Spec Grav 1.011 Normal 1.003-1.035 [facility] Comment on above: Order Comment: If pa tient catheterized >2 days, discontinue current catheter, and insert new catheter prior to collection Performed By: #### R ENAL #### [address] [place] [address] UA Urobilinogen Normal Normal 0.2 - 1.0 [facility] Comment on above: Order Comment: If pa tient catheterized >2 days, discontinue current catheter, and insert new catheter prior to collection Performed By: #### R ENAL #### [address] [address] Urobilinogen (U) [Mass/Vol] Negative Normal Negative [facility] Comment on above: Order Comment: If pa tient catheterized >2 days, discontinue current catheter, and insert new catheter prior to collection Performed By: #### R ENAL #### [address] [address] US Renal and Bladderon 07-23 US Renal and Bladder CLINICAL HISTORY: Acute renal failure. EXAMINATION: Real-time sonogram of the kidneys and urinary bladder was performed. This was supplemented with color flow Doppler. Comparison is made to a previous examination dated 10/20/2022. FINDINGS: The left kidney measures 11.0 cm in length. There is normal echotexture and color Doppler. Cortical medullary junction is patent. There is mild cortical scarring. There is no hydronephrosis, nephrolithiasis or solid renal lesion. The right kidney measures 10.4 cm in length. There is normal echotexture and color Doppler. Cortical medullary junction is maintained. There is no hydronephrosis, nephrolithiasis or solid renal lesion. The bladder is nondistended, limiting evaluation. A Diaz catheter was present. There is no gross abnormality of the urinary bladder. IMPRESSION: 1. No significant abnormality of the kidneys. 2. Limited evaluation of the urinary bladder demonstrates a Diaz catheter in place. There is no gross abnormality. Final Dictated by: Bentley Pal MD Dictated DT/TM: 07/23/2024 4:58 pm Signed by: Bentley Pal MD Signed (Electronic Signature): 07/23/2024 5:00 pm (If Report Is Signed, Electronically Signed in Other Vendor System) Normal [facility] VL Extremity Venous Duplex [place] 07-23-2024 VL Extremity Venous Duplex [place] Preliminary Technologist Report A bilateral lower extremity venous exam was performed. Appeared to be a normal venous exam, all visualized vessels bilaterally were compressible and patent with no evidence of acute or chronic DVT. Preliminary results called to Rani in CCU at 2:25 pm. Hammersmith Helper: Christiano Phillips RVElizabeth _ Radiologist Report CLINICAL HISTORY: Bilateral lower extremity swelling. EXAMINATION: Real-time sonogram of the lower extremities was performed and supplemented with compression, augmentation and color flow Doppler. There is no prior study available for comparison. FINDINGS: RIGHT: Deep Veins: No thrombus. Compression and augmentation: Normal.. Venous blood flow: Normal phasic flow. Superficial Veins: No superficial thrombus. Varicosities: None. Collaterals: Unremarkable. Other: Unremarkable. LEFT: Deep Veins: No thrombus. Compression and augmentation: Normal.. Venous blood flow: Normal phasic flow. Superficial Veins: No superficial thrombus. Varicosities: None. Collaterals: Unremarkable. Other: Unremarkable. CONCLUSIONS: No evidence of deep venous thrombosis. Final Signed by: Bentley Pal MD Signed (Electronic Signature): 07.23.2024 4:28 pm Transcribed by: Bentley Pal MD Transcribed DT/TM: 07.23.2024 2:38 (If Report is Signed, Electronically Signed in Other Vendor System) Normal [facility] XR Chest 1 Viewon 07-23-2024 XR Chest 1 View EXAM: XR Chest 1 Vie w HISTORY: CHF (Congestive Heart Failure), COMPARISON: 10/13/2022 TECHNIQUE: Portable upright view FINDINGS: There is no pulmonary vascular congestion. There is mild ectasia of the thoracic aorta. There is no cardiac enlargement. Linear opacity within the lung bases is likely scarring or atelectasis. There is no pleural effusion. There is no pneumothorax. Spondylitic changes seen in thoracic spine. IMPRESSION: Bibasilar scarring or atelectasis. No evidence of congestive heart failure. Final Dictated by: Verónica Talley MD Dictated DT/TM: 07/23/2024 11:34 am Signed by: Verónica Talley MD Signed (Electronic Signature): 07/23/2024 11:36 am (If Report Is Signed, Electronically Signed in Other Vendor System) Normal [facility] CBC with Auto Differentialon 07-22-2024 Basophils (Bld) [#/Vol] 0.03 10*3/uL [facility] Basophils/100 WBC (Bld) 0 % 0 - 2 % B on [facility] Eosinophils (Bld) [#/Vol] [facility] Eosinophils/100 WBC (Bld) 0 % Low 1 - 4 % [facility] Erythrocyte distribution width (RBC) [Ratio] 12.6 % 11.8 - 14.4 % [facility] Hematocrit (Bld) [Volume fraction] 32.3 % Low 40.7 - 50.3 % [facility] Hemoglobin (Bld) [Mass/Vol] 11.3 g/dL Low 13.0 - 17.0 g/dL [facility] Immature granulocytes (Bld) [#/Vol] 0.03 10*3/uL [facility] Immature granulocytes/100 WBC (Bld) 0 % 0 [facility] Interpretation and review of laboratory results Abnormal [facility] Lymphocytes/100 WBC (Bld) 21 % Low 24 - 43 % [facility] Lymphocytes/100 WBC (Bld) 1.62 % [facility] MCH (RBC) [Entitic mass] 30.8 pg 25.2 - 33.5 pg [facility] MCHC (RBC) [Mass/Vol] 35.0 g/dL High 28.4 - 34.8 g/dL [facility] MCV (RBC) [Entitic vol] 88.0 fL 82.6 - 102.9 fL [facility] Monocytes/100 WBC (Bld) 10 % 3 - 12 % B on [facility] Monocytes/100 WBC (Bld) 0.79 % B on [facility] Neutrophils/100 WBC (Bld) 69 % High 36 - 65 % [facility] Nucleated RBC/100 WBC (Bld) [Ratio] 0.0 % 0.0 per 100 WBC [facility] Platelet mean volume (Bld) [Entitic vol] 11.4 fL 8.1 - 13.5 fL [facility] Platelets (Bld) [#/Vol] 309 10*3/uL [facility] RBC (Bld) [#/Vol] 3.67 10*6/uL Low 4.21 - 5.7 7 m/uL [facility] Segmented neutrophils/100 WBC (Bld) 5.40 % [facility] WBC other (Bld) [#/Vol] 7.9 B on [facility] CBC with Diffon 07-22-2024 Abs. Basophil 0.03 k/uL Normal 0.00-0.20 [facility] Comment on above: Performed By: #### M G, CDP, CP, URI, LIP ####[address] [place], [place] [id number] Lab Director: Eder Herrera MD#### PTHNCA ####[address] [phone] lab Director: Jimenez Pruett MD Abs. Eosinophil <0.03 Normal 0.00-0.44 [facility] Comment on above: Performed By: #### M G, CDP, CP, URI, LIP ####[address] [place], [place] 65[address]683 Lab Director: Eder Herrera MD#### PTHNCA ####[address] [place] [address] Lab Director: Jimenez Pruett MD Abs.Imm.Granulocyte 0.03 k/uL Normal 0.00-0.30 [facility] Comment on above: Performed By: #### M G, CDP, CP, URI, LIP ####[address] [place], [place] [address])[phone] Director: Eder Herrera MD#### PTHNCA ####[address] [address] Lab Director: Jimenez Pruett MD Abs.Neutrophil (Seg) 5.40 k/uL Normal 1.50-8.10 [facility] Comment on above: Performed By: #### M G, CDP, CP, URI, LIP ####[address] [place], [place] [address])[phone] Director: Eder Herrera MD#### PTHNCA ####[address] [address] Lab Director: Jimenez Pruett MD Basophils/100 WBC (Bld) 0 % Normal 0-2 M [facility] Comment on above: Performed By: #### M G, CDP, CP, URI, LIP ####[address] [place] [address])[phone] Director: Eder Herrera MD#### PTHNCA ####[address] [address] Lab Director: Jimenez Pruett MD Eosinophils/100 WBC (Bld) 0 % Low 1-4 [facility] Comment on above: Performed By: #### M G, CDP, CP, URI, LIP ####[address] [place] [address]([facility])[phone] Director: Edre Herrera MD#### PTHNCA ####[address] [place] [address] Lab Director: Jimenez Pruett MD Erythrocyte distribution width (RBC) [Ratio] 12.6 % Normal 11.8-14.4 [facility] Comment on above: Performed By: #### M G, CDP, CP, URI, LIP ####[address] [place], [place] [address])[phone] Director: Eder Herrera MD#### PTHNCA ####[address] [place] [address] Lab Director: Jimenez Pruett MD Hematocrit (Bld) [Volume fraction] 32.3 % Low 40.7-50.3 [facility] Comment on above: Performed By: #### M G, CDP, CP, URI, LIP ####[address] [place] [address])[phone] Director: Eder Herrera MD#### PTHNCA ####[place] [address] Lab Director: Jimenez Pruett MD Hemoglobin (Bld) [Mass/Vol] 11.3 g/dL Low 13.0-17.0 [facility] Comment on above: Performed By: #### M G, CDP, CP, URI, LIP ####[address] [place] [address]([facility])[phone] Director: Eder Herrera MD#### PTHNCA ####[address] [address] Lab Director: Jimenez Pruett MD Immature granulocytes/100 WBC (Bld) 0 % Normal 0 [facility] Comment on above: Performed By: #### M G, CDP, CP, URI, LIP ####[address] [address]83 Lab Director: Eder Herrera MD#### PTHNCA ####[address] [place] [address] Lab Director: Jimenez Pruett MD Lymphocytes (Bld) [#/Vol] 1.62 10*3/uL Normal 1.10-3.70 [facility] Comment on above: Performed By: #### M G, CDP, CP, URI, LIP ####[address] [place] 9[address]3083 Lab Director: Eder Herrera MD#### PTHNCA ####[place] [address] Lab Director: Jimneez Pruett MD Lymphocytes/100 WBC (Bld) 21 % Low 24-43 [facility] Comment on above: Performed By: #### Bettina Saha, CDP, CP, URI, LIP ####[address] [place] 9[address]3083 Lab Director: Eder Herrera MD#### PTHNCA ####[place] [address] Lab Director: Jimenez Pruett MD MCH (RBC) [Entitic mass] 30.8 pg Normal 25.2-33.5 [facility] Comment on above: Performed By: #### Bettina G, CDP, CP, URI, LIP ####[address] [place], [place] 8368583 Lab Director: Eder Herrera MD#### PTHNCA ####[address] [place] [address] Lab Director: Jimenez Pruett MD MCHC (RBC) [Mass/Vol] 35.0 g/dL High 28.4-34.8 [facility] Comment on above: Performed By: #### M G, CDP, CP, URI, LIP ####[address] [place] [address])[phone] Director: Eder Herrera MD#### PTHNCA ####[address] [id number])[phone] Director: Jimenez Pruett MD MCV (RBC) [Entitic vol] 88.0 fL Normal 82.6-102.9 M [facility] Comment on above: Performed By: #### M G, CDP, CP, URI, LIP ####[address] [place] [address])[phone] Director: Eder Herrera MD#### PTHNCA ####[place], [place] [address])[phone] Director: Jimenez Pruett MD Monocytes (Bld) [#/Vol] 0.79 10*3/uL Normal 0.10-1.20 [facility] Comment on above: Performed By: #### M G, CDP, CP, URI, LIP ####[address] [place], [place] [address])[phone] Director: Eder Herrera MD#### PTHNCA ####[place], [place] [phone] Director: Jimenez Pruett MD Monocytes/100 WBC (Bld) 10 % Normal 3-12 M [facility] Comment on above: Performed By: #### M G, CDP, CP, URI, LIP ####[address] [place] [address]83 Lab Director: Eder Herrera MD#### PTHNCA ####[address] [phone] Director: Jimenez Pruett MD Neutrophil (Seg) 69 % High 36-65 [facility] Comment on above: Performed By: #### M G, CDP, CP, URI, LIP ####[address] , [place] [id number])[phone] Director: Eder Herrera MD#### PTHNCA ####[address] [place], [place] [id number])[phone] Director: Jimenez Pruett MD NRBC Automated 0.0 per 100 WBC Normal 0.0 [facility] Comment on above: Performed By: #### M G, CDP, CP, URI, LIP ####[address] [place], [place] 94240419)[phone] Director: Eder Herrera MD#### PTHNCA ####[address] [place], [place] [id number])[phone] Director: Jimenez Pruett MD Platelet mean volume (Bld) [Entitic vol] 11.4 fL Normal 8.1-13.5 [facility] Comment on above: Performed By: #### M G, CDP, CP, URI, LIP ####[address] , [place] [phone] Director: Eder Herrera MD#### PTHNCA ####[address] [address] Lab Director: Jimenez Pruett MD Platelets (Bld) [#/Vol] 309 10*3/uL Normal 138-453 [facility] Comment on above: Performed By: #### M G, CDP, CP, URI, LIP ####[address] [place] [address] Lab Director: Eder Herrera MD#### PTHNCA ####[address] [place], [place] [id number])[phone] Director: Jimenez Pruett MD RBC (Bld) [#/Vol] 3.67 10*6/uL Low 4.21-5.77 [facility] Comment on above: Performed By: #### M G, CDP, CP, URI, LIP ####[facility] [place], [place] 14[address] Lab Director: Eder Herrera MD#### PTHNCA ####[facility] [address] [place], [place] 0695508 Lab Director: Jimenez Pruett MD WBC (Bld) [#/Vol] 7.9 10*3/uL Normal 3.5-11.3 [facility] Comment on above: Performed By: #### M G, CDP, CP, URI, LIP ####[facility] , [place] 0[address]83 lab Director: Eder Herrera MD#### PTHNCA ####[facility] [address] [place], [place] 4824608 lab Director: Jimenez Pruett MD [facility] 07-22-2024 Albumin [Mass/Vol] 4.3 g/dL 3.5 - 5.2 g/dL [facility] Albumin/Globulin [Mass ratio] 1.3 {ratio} 1.0 - 2.5 [facility] ALP [Catalytic activity/Vol] 83 U/L 40 - 129 U/L [facility] ALT [Catalytic activity/Vol] 10 U/L 10 - 50 U/L [facility] Anion gap [Moles/Vol] 20 mmol/L High 9 - 16 mmol/L [facility] AST [Catalytic activity/Vol] 13 U/L 10 - 50 U/L [facility] Bilirubin [Mass/Vol] 0.3 mg/dL 0.00 - 1.20 mg/dL [facility] Calcium [Mass/Vol] 7.7 mg/dL Low 8.6 - 10. 4 mg/dL [facility] Chloride [Moles/Vol] 86 mmol/L Low 98 - 10 7 mmol/L [facility] CO2 [Moles/Vol] 24 mmol/L 20 - 31 mmol/L [facility] Creatinine [Mass/Vol] 4.5 mg/dL High 0.70 - 1.20 mg/dL [facility] Yuliet Lancastert Rate 14 Low - PINF [facility] Comment on above: These results are not intended for use in patients <18 years of age. eGFR results are calculated without a race factor using the 2020 CKD-EPI equation. Careful clinical correlation is recommended, particularly when comparing to results calculated using previous equations. The CKD-EPI equation is less accurate in patients with extremes of muscle mass, extra-renal metabolism of creatine, excessive creatine ingestion, or following therapy that affects renal tubular secretion. Glucose [Mass/Vol] 273 mg/dL High 74 - 99 mg/dL [facility] Potassium [Moles/Vol] 4.6 mmol/L 3.7 - 5.3 mmol/L [facility] Protein [Mass/Vol] 7.5 g/dL 6.6 - 8.7 g/dL [facility] Sodium [Moles/Vol] 130 mmol/L Low 136 - 145 mmol/L [facility] Urea nitrogen [Mass/Vol] 127 mg/dL Critically high 8 - 23 mg/dL [facility] Urea nitrogen/Creatinine [Mass ratio] 28 mg/mg High 9 - 20 [facility] COVID-19, Rapidon 07-22-2024 SARS-CoV-2 (COVID-19) RdRp gene ARIEL+probe Ql (Resp) Not detected Not Detected [facility] Comment on above: Rapid NAAT: The specimen is NEGATIVE for SARS-CoV-2, the novel coronavirus associated with COVID-19. The ID NOW COVID-19 assay is designed to detect the virus that causes COVID-19 in patients with signs and symptoms of infection who are suspected of COVID-19. An individual without symptoms of COVID-19 and who is not shedding SARS-CoV-2 virus would expect to have a negative (not detected) result in this assay. Negative results should be treated as presumptive and, if inconsistent with clinical signs and symptoms or necessary for patient management, should be tested with an alternative molecular assay. Negative results do not preclude SARS-CoV-2 infection and should not be used as the sole basis for patient management decisions. Methodology: Isothermal Nucleic Acid Amplification Specimen Description .NASOPHARYNGEAL SWAB [facility] Bon [facility] CT ABDOMEN PELVIS WO CONTRAS Ton 07-22-2024 CT ABDOMEN PELVIS WO CONTRAST Normal [facility] CT Abdomen and Pelvis WO con traston 07-22-2024 1. No acute intra-abdominal or intrapelvic process. No findings to explain the patient's symptoms. 2. Additional incidental findings as above. [facility] EXAMINATION: CT OF THE ABDOMEN AND PELVIS WITHOUT CONTRAST 07/22/2024 1:52 pm TECHNIQUE: CT of the abdomen and pelvis was performed without the administration of intravenous contrast. Multiplanar reformatted images are provided for review. Automated exposure control, iterative reconstruction, and/or weight based adjustment of the mA/kV was utilized to reduce the radiation dose to as low as reasonably achievable. COMPARISON: CT abdomen and pelvis 12/15/2022. MRI pelvis 01/27/2023. HISTORY: ORDERING SYSTEM PROVIDED HISTORY: diffuse abdominal pain; nausea and vomiting x 4 days TECHNOLOGIST PROVIDED HISTORY: diffuse abdominal pain; nausea and vomiting x 4 days Decision Support Exception - unselect if not a suspected or confirmed emergency medical condition->Emergency Medical Condition ([place]) FINDINGS: Lower Chest: Mild linear scarring versus atelectasis. No focal consolidations or pleural effusions. Organs: Unremarkable liver, spleen, pancreas, adrenal glands and kidneys on this noncontrast exam. Cholelithiasis redemonstrated. Gallbladder is otherwise unremarkable. GI/Bowel: Lack of oral contrast limits evaluation. No evidence for bowel obstruction or definite bowel wall thickening to unopacified large or small bowel. No evidence for acute appendicitis. Grossly unremarkable stomach. Pelvis: Unremarkable urinary bladder and prostate. Peritoneum/Retroperit oneum: Small somewhat triangular focus of focal fluid attenuation laterally within the right lower abdomen is redemonstrated and decreased in size from prior exam. This was shown to represent some simple focal fluid on prior MRI. Uncertain etiology but of doubtful clinical significance and considered benign given interval decrease in size and appearance on prior MRI. No ascites. No intraperitoneal free air. No lymphadenopathy is seen. Abdominal aorta is normal in caliber. Bones/Soft Tissues: No acute bone or soft tissue abnormality. No suspicious focal bony lesions. 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 Multilevel degenerative changes to the spine. [facility] Cleve Shi M D - 07/22/2024 EXAMINATION: CT OF THE ABDOMEN AND PELVIS WITHOUT CONTRAST 07/22/2024 1:52 pm TECHNIQUE: CT of the abdomen and pelvis was performed without the administration of intravenous contrast. Multiplanar reformatted images are provided for review. Automated exposure control, iterative reconstruction, and/or weight based adjustment of the mA/kV was utilized to reduce the radiation dose to as low as reasonably achievable. COMPARISON: CT abdomen and pelvis 12/15/2022. MRI pelvis 01/27/2023. HISTORY: ORDERING SYSTEM PROVIDED HISTORY: diffuse abdominal pain; nausea and vomiting x 4 days TECHNOLOGIST PROVIDED HISTORY: diffuse abdominal pain; nausea and vomiting x 4 days Decision Support Exception - unselect if not a suspected or confirmed emergency medical condition->Emergency Medical Condition ([place]) FINDINGS: Lower Chest: Mild linear scarring versus atelectasis. No focal consolidations or pleural effusions. Organs: Unremarkable liver, spleen, pancreas, adrenal glands and kidneys on this noncontrast exam. Cholelithiasis redemonstrated. Gallbladder is otherwise unremarkable. GI/Bowel: Lack of oral contrast limits evaluation. No evidence for bowel obstruction or definite bowel wall thickening to unopacified large or small bowel. No evidence for acute appendicitis. Grossly unremarkable stomach. Pelvis: Unremarkable urinary bladder and prostate. Peritoneum/Retroperit oneum: Small somewhat triangular focus of focal fluid attenuation laterally within the right lower abdomen is redemonstrated and decreased in size from prior exam. This was shown to represent some simple focal fluid on prior MRI. Uncertain etiology but of doubtful clinical significance and considered benign given interval decrease in size and appearance on prior MRI. No ascites. No intraperitoneal free air. No lymphadenopathy is seen. Abdominal aorta is normal in caliber. Bones/Soft Tissues: No acute bone or soft tissue abnormality. No suspicious focal bony lesions. 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 Multilevel degenerative changes to the spine. IMPRESSION: 1. No acute intra-abdominal or intrapelvic process. No findings to explain the patient's symptoms. 2. Additional incidental findings as above. [facility] Radiology Study observation (narrative) [facility] CT Abdomen and Pelvis WO con trastOrdered By: Cleve Shi on 07-22-2024 [facility] Work Phone: Comp Metabolic Profon 2024 Albumin [Mass/Vol] 4.3 g/dL Normal 3.5-5.2 [facility] Comment on above: Performed By: #### M G, CDP, CP, URI, LIP ####[address] [place], [place] [address]83 Lab Director: Eder Herrera MD#### PTHNCA ####[address] [place] [address] Lab Director: Jimenez Pruett MD Albumin/Glob Ratio 1.3 Normal 1.0-2.5 [facility] Comment on above: Performed By: #### M G, CDP, CP, URI, LIP ####[address] [place], [place] 4126483 Lab Director: Eder Herrera MD#### PTHNCA ####[address] [address] Lab Director: Jimenez Pruett MD Alkaline Phos 83 U/L Normal 40-129 [facility] Comment on above: Performed By: #### M G, CDP, CP, URI, LIP ####[address] [place] [address] Lab Director: Eder Herrera MD#### PTHNCA ####[address] [place], [place] [id number])[phone] Director: Jimenez Pruett MD ALT [Catalytic activity/Vol] 10 U/L Normal 10-50 [facility] Comment on above: Performed By: #### M G, CDP, CP, URI, LIP ####[address] [place] [address] Lab Director: Eder Herrera MD#### PTHNCA ####[address] [place] [address] Lab Director: Jimenez Pruett MD Anion gap [Moles/Vol] 20 mmol/L High 9-16 [facility] Comment on above: Performed By: #### M G, CDP, CP, URI, LIP ####[address] [place], [place] 0950[address] Lab Director: Eder Herrera MD#### PTHNCA ####[address] [phone])[phone] Director: Jimenez Pruett MD AST [Catalytic activity/Vol] 13 U/L Normal 10-50 [facility] Comment on above: Performed By: #### M G, CDP, CP, URI, LIP ####[address] [place] [address] Lab Director: Eder Herrera MD#### PTHNCA ####[address] [id number])[phone] Director: Jimenez Pruett MD Bilirubin [Mass/Vol] 0.3 mg/dL Normal 0.00-1.20 [facility] Comment on above: Performed By: #### M G, CDP, CP, URI, LIP ####[address] [place] [address] Lab Director: Eder Herrera MD#### PTHNCA ####[address] [id number])[phone] Director: Jimenez Pruett MD BUN/CRE Ratio 28 High 9-20 [facility] Comment on above: Performed By: #### M G, CDP, CP, URI, LIP ####[address] [place] [address] Lab Director: Eder Herrera MD#### PTHNCA ####[address] [place], [place] 0170308 Lab Director: Jimenez Pruett MD Calcium [Mass/Vol] 7.7 mg/dL Low 8.6-10.4 [facility] Comment on above: Performed By: #### M G, CDP, CP, URI, LIP ####[address] [place], [place] 8878[address] Lab Director: Eder Herrera MD#### PTHNCA ####[address] [address] Lab Director: Jimenez Pruett MD Chloride [Moles/Vol] 86 mmol/L Low 98-107 [facility] Comment on above: Performed By: #### M G, CDP, CP, URI, LIP ####[address] [place], [place] 135[address]83 Lab Director: Eder Herrera MD#### PTHNCA ####[address] [address] Lab Director: Jimenez Pruett MD CO2 [Moles/Vol] 24 mmol/L Normal 20-31 [facility] Comment on above: Performed By: #### M G, CDP, CP, URI, LIP ####[address] [place], [place] [address] Lab Director: Eder Herrera MD#### PTHNCA ####[address] [address] Lab Director: Jimenez Pruett MD Creatinine [Mass/Vol] 4.5 mg/dL High 0.70-1.20 [facility] Comment on above: Performed By: #### M G, CDP, CP, URI, LIP ####[address] [place], [place] 210[address]83 Lab Director: Eder Herrera MD#### PTHNCA ####[address] [phone] Lab Director: Jimenez Pruett MD GFR/1.73 sq M.predicted among non-blacks MDRD (S/P/Bld) [Vol rate/Area] 14 mL/min/{1.73_m2} Low >60 [facility] Comment on above: Result Comment: Thes e results are not intended for use in patients <18 years of age.eGFR results are calculated without a race factor using the 2020 CKD-EPI equation.Careful clinical correlation is recommended, particularly when comparing to results calculated using previous equations.The CKD-EPI equation is less accurate in patients with extremes of muscle mass, extra-renal metabolism of creatine, excessive creatine ingestion, or following therapy that affects renal tubular secretion. Performed By: #### M G, CDP, CP, URI, LIP ####[address] [place] [id number] Lab Director: Eder Herrera MD#### PTHNCA ####[address] [address] Lab Director: Jimeenz Pruett MD Glucose [Mass/Vol] 273 mg/dL High 74-99 [facility] Comment on above: Performed By: #### M G, CDP, CP, URI, LIP ####[address] [place] [address]83 Lab Director: Eder Herrera MD#### PTHNCA ####[address] [place] [address] Lab Director: Jimenez Pruett MD Potassium [Moles/Vol] 4.6 mmol/L Normal 3.7-5.3 [facility] Comment on above: Performed By: #### M G, CDP, CP, URI, LIP ####[address] [place], [place] 4332[address] Lab Director: Eder Herrera MD#### PTHNCA ####[address] [place] [address] Lab Director: Jimenez Pruett MD Protein [Mass/Vol] 7.5 g/dL Normal 6.6-8.7 [facility] Comment on above: Performed By: #### M G, CDP, CP, URI, LIP ####[address] [place] [address] Lab Director: Eder Herrera MD#### PTHNCA ####[address] [address] Lab Director: Jimenez Pruett MD Sodium [Moles/Vol] 130 mmol/L Low 136-145 [facility] Comment on above: Performed By: #### M G, CDP, CP, URI, LIP ####[address] [place], [place] 595[address]83 Lab Director: Eder Herrera MD#### PTHNCA ####[address] [address] Lab Director: Jimenez Pruett MD Urea nitrogen [Mass/Vol] 127 mg/dL Critically high 8-23 [facility] Comment on above: Performed By: #### M G, CDP, CP, URI, LIP ####[address] , [place] 8848783 Lab Director: Eder Herrera MD#### PTHNCA ####[address] [address] Lab Director: Jimenez Pruett MD Flu A/B Ag Detectionon 07-22 Flu A Ag Detection Negative Normal NEG [facility] Comment on above: Result Comment: for Influenza A Antigen Performed By: #### F LUABA ####[address] [place] [address] Lab Director: Eder Herrera MD Flu B Ag Detection Negative Normal NEG [facility] Comment on above: Result Comment: for Influenza B Antigen. Performed By: #### F LUABA ####[address] [place], [place] 3964[address] Lab Director: Eder Herrera MD Lactic Acidon 07-22-2024 Lactate (BldV) [Moles/Vol] 2.2 mmol/L 0.5 - 2.2 mmol/L [facility] Lactate [Moles/Vol] 2.2 mmol/L Normal 0.5-2.2 [facility] Comment on above: Performed By: #### L ACTIC ####[address] [place] [address] Lab Director: Eder Herrera MD Lipaseon 07-22-2024 Lipase [Catalytic activity/Vol] 138 U/L High 13 - 60 U/L [facility] Lipase [Catalytic activity/Vol] 138 U/L High 13-60 [facility] Comment on above: Performed By: #### Bettina Saha, BRADY, CP, URI, LIP ####[address] [place], [place] 3024[address] Lab Director: Eder Herrera MD#### PTHNCA ####[address] [place], [place] 2831208 Lab Director: Jimenez Pruett MD Magnesiumon 3 Magnesium [Mass/Vol] 1.9 mg/dL 1.6 - 2 .4 mg/dL [facility] Magnesium [Mass/Vol] 1.9 mg/dL Normal 1.6-2.4 [facility] Comment on above: Performed By: #### M Yifan, BRADY, CP, URI, LIP ####[address] [place] [address] Lab Director: Eder Herrera MD#### PTHNCA ####[facility] [place], [place] [address] Lab Director: Jimenez Pruett MD Microscopic Urinalysison Bacteria LM Ql (Urine sed) 2+ Abnormal None [facility] Casts LM.LPF (Urine sed) [#/Area] 20 TO 50 HYALINE /LPF [facility] Epithelial cells LM.HPF (Urine sed) [#/Area] 0 TO 2 [facility] Interpretation and review of laboratory results Abnormal [facility] RBC LM.HPF (Urine sed) [#/Area] 0 TO 2 [facility] WBC LM.HPF (Urine sed) [#/Area] 0 TO 2 [facility] No Panel Informationon 07-22 Interpretation and review of laboratory results Abnormal [facility] PTH, [place] 07-22-2024 Interpretation and review of laboratory results Abnormal [facility] Parathyrin.intact [Mass/Vol] 137.0 pg/mL High 15 - 65 pg/mL [facility] PTH, Intact 137.0 pg/mL High 15-65 [facility] Comment on above: Performed By: #### M G, CDP, CP, URI, LIP ####[facility] [place] [address] Lab Director: Eder Herrera MD#### PTHNCA ####[address] [place], [place] [id number] Lab Director: Jimenez Pruett MD Rapid influenza A/B antigens on 07-22-2024 FLUAV Ag Ql (Unsp spec) Negative NEGATIVE B on [facility] Comment on above: for Influenza A Anti gen FLUBV Ag Ql (Unsp spec) Negative NEGATIVE B on [facility] Comment on above: for Influenza B Anti gen. [facility] [id number] 07-22-2024 SARS-CoV-2 (COVID-19) RNA ARIEL+probe Ql (Unsp spec) Not detected Normal [facility] Comment on above: Result Comment: Rapi d NAAT: The specimen is NEGATIVE for SARS-CoV-2, the novel coronavirus associated with COVID-19.The ID NOW COVID-19 assay is designed to detect the virus that causes COVID-19 in patients with signs and symptoms of infection who are suspected of COVID-19.An individual without symptoms of COVID-19 and who is not shedding SARS-CoV-2 virus would expect to have a negative (not detected) result in this assay.Negative results should be treated as presumptive and, if inconsistent with clinical signs and symptoms or necessary for patient management,should be tested with an alternative molecular assay. Negative results do not preclude SARS-CoV-2 infection andshould not be used as the sole basis for patient management decisions.Methodology: Isothermal Nucleic Acid Amplification Performed By: #### C OVRB ####[address] , [place] [id number] Lab Director: Eder Herrera MD UA w/Reflex Cultureon 2024 Bilirubin, SemiQt,Ur Negative Normal NEG [facility] Comment on above: Performed By: #### U SHAWN UAX ####[address] [place] [address] Lab Director: Eder Herrera MD Blood, Urine Negative Normal NEG [facility] Comment on above: Performed By: #### U SHAWN, UAX ####[address] , [place] [id number] Lab Director: Eder Herrera MD Clarity (U) Clear Normal CLEAR [facility] Comment on above: Performed By: #### U SHAWN, UAX ####[address] , [place] 1702583 Lab Director: Eder Herrera MD Color (U) Yellow Normal YEL [facility] Comment on above: Performed By: #### U SHAWN, UAX ####[address] , [place] 8202083 Lab Director: Eder Herrera MD Glucose Ql (U) 2+ mg/dL Abnormal NEG [facility] Comment on above: Performed By: #### U SHAWN, UAX ####[address] , [place] [id number] Lab Director: Eder Herrera MD Ketones Ql (U) Negative Normal NEG [facility] Comment on above: Performed By: #### U MICAO, UAX ####[address] , [place] 2513983 Lab Director: Eder Herrera MD Leukocyte esterase Test strip Ql (U) Negative Normal NEG [facility] Comment on above: Performed By: #### U MICAO, UAX ####[address] , [place] [id number] Lab Director: Eder Herrera MD Nitrite,Ur Negative Normal NEG [facility] Comment on above: Performed By: #### U MICAO, UAX ####[address] , [place] [id number] Lab Director: Eder Herrera MD PH,Ur 5.5 Normal 5.0-9.0 [facility] Comment on above: Performed By: #### U MICAO, UAX ####[address] [place] [address] Lab Director: Eder Herrera MD Protein Ql (U) Negative Normal NEG [facility] Comment on above: Performed By: #### U MICAO, UAX ####[address] , [place] [address] Lab Director: Eder Herrera MD Spec. [place],Ur 1.010 Normal 1.010-1.020 [facility] Comment on above: Performed By: #### U MICAO, UAX ####[address] , [place] 9965583 lab Director: Eder Herrera MD Urobilinogen,Ur Normal Normal 0.0-1.0 [facility] Comment on above: Performed By: #### U MICAO, UAX ####[facility] [place] [address] [facility] Director: Eder Herrera MD Uric Acidon 07-22-2024 Urate [Mass/Vol] 7.6 mg/dL High 3.4 - 7.0 mg/dL [facility] Urate [Mass/Vol] 7.6 mg/dL High 3.4-7.0 [facility] Comment on above: Performed By: #### M G, CDP, CP, URI, LIP ####[facility] [place] [address] lab Director: Eder Herrera MD#### PTHNCA ####[address] [place], [place] 6839308 lab Director: Jimenez Pruett MD Urinalysis with Reflex to Cu ltureon 07-22-2024 Bilirubin Ql (U) Negative NEGATIVE [facility] Clarity (U) Clear Clear [facility] Color (U) Yellow Yellow [facility] Glucose Test strip (U) [Mass/Vol] 2+ Abnormal NEGATIVE mg/dL [facility] Hemoglobin Auto test strip Ql (U) Negative NEGATIVE [facility] Interpretation and review of laboratory results Abnormal [facility] Ketones (U) [Mass/Vol] Negative NEGAT PAO mg/dL [facility] Leukocyte esterase Test strip Ql (U) Negative NEGATIVE [facility] Nitrite Ql (U) Negative NEGATIVE [facility] pH (U) 5.5 [pH] 5.0 - 9.0 [facility] Protein (U) [Mass/Vol] Negative NEGAT PAO mg/dL [facility] Specific gravity (U) [Rel density] 1.010 1.010 - 1.020 [facility] Urobilinogen Qn (U) Normal 0.0 - 1. 0 EU/dL [facility] Urinalysis,Microon 5 Bacteria 2+ Abnormal NONE [facility] Comment on above: Performed By: #### U MICAO, UAX ####[address] , [place] [id number] lab Director: Eder Herrera MD Casts 20 TO 50 Normal [facility] Comment on above: Result Comment: HYAL INE Performed By: #### U MICAO, UAX ####[address] , [place] 666[address]83 lab Director: Eder Herrera MD Epithelial cells LM Ql (Urine sed) 0 TO 2 Normal 0-5 [facility] Comment on above: Performed By: #### U MICAO, UAX ####[address] , [place] 0[address]83 lab Director: Eder Herrera MD Urine RBC's 0 TO 2 Normal 0-2 [facility] Comment on above: Performed By: #### U MICAO, UAX ####[address] , [place] 9[address]83 lab Director: Eder Herrera MD Urine WBC's 0 TO 2 Normal 0-5 [facility] Comment on above: Performed By: #### U MICAO, UAX ####[address] , [place] 1894683 lab Director: Eder Herrera MD Magnesiumon 07-13-2024 Magnesium [Mass/Vol] 1.8 mg/dL 1.6 - 2 .4 mg/dL [facility] Magnesium [Mass/Vol] 1.8 mg/dL Normal 1.6-2.4 [facility] Comment on above: Performed By: #### M G, RENP ####[address] , [place] [id number] lab Director: Eder Herrera MD No Panel Informationon 07-13 [facility] Renal Function Panelon 07-13 Albumin [Mass/Vol] 4.2 g/dL 3.5 - 5.2 g/dL [facility] Anion gap [Moles/Vol] 13 mmol/L 9 - 16 mmol/L [facility] Calcium [Mass/Vol] 8.9 mg/dL 8.6 - 10. 4 mg/dL [facility] Chloride [Moles/Vol] 96 mmol/L Low 98 - 10 7 mmol/L [facility] CO2 [Moles/Vol] 27 mmol/L 20 - 31 mmol/L [facility] Creatinine [Mass/Vol] 2.3 mg/dL High 0.70 - 1.20 mg/dL [facility] Est, Glom Filt Rate 31 Low - PINF [facility] Comment on above: These results are not intended for use in patients <18 years of age. eGFR results are calculated without a race factor using the 2020 CKD-EPI equation. Careful clinical correlation is recommended, particularly when comparing to results calculated using previous equations. The CKD-EPI equation is less accurate in patients with extremes of muscle mass, extra-renal metabolism of creatine, excessive creatine ingestion, or following therapy that affects renal tubular secretion. Glucose [Mass/Vol] 137 mg/dL High 74 - 99 mg/dL [facility] Interpretation and review of laboratory results Abnormal [facility] Phosphate [Mass/Vol] 3.7 mg/dL 2.5 - 4 .5 mg/dL [facility] Potassium [Moles/Vol] 4.1 mmol/L 3.7 - 5.3 mmol/L [facility] Sodium [Moles/Vol] 136 mmol/L 136 - 145 mmol/L [facility] Urea nitrogen [Mass/Vol] 82 mg/dL High 8 - 23 mg/dL [facility] Urea nitrogen/Creatinine [Mass ratio] 36 mg/mg High 9 - 20 [facility] Albumin [Mass/Vol] 4.2 g/dL Normal 3.5-5.2 [facility] Comment on above: Performed By: #### VALARIE Foster ####[facility] [place] [address] Lab Director: Eder Herrera MD Anion gap [Moles/Vol] 13 mmol/L Normal 9-16 [facility] Comment on above: Performed By: #### Bettina Saha, RENP ####[address] , [place] 3011383 lab Director: Eder Herrera MD BUN/CRE Ratio 36 High 9-20 [facility] Comment on above: Performed By: #### Bettina Saha, RENP ####[address] , [place] 5299083 lab Director: Eder Herrera MD Calcium [Mass/Vol] 8.9 mg/dL Normal 8.6-10.4 [facility] Comment on above: Performed By: #### Bettina Saha, RENP ####[address] , [place] 5225083 Lab Director: Eder Herrera MD Chloride [Moles/Vol] 96 mmol/L Low 98-107 [facility] Comment on above: Performed By: #### Bettina Saha, RENP ####[address] [place] [address] Lab Director: Eder Herrera MD CO2 [Moles/Vol] 27 mmol/L Normal 20-31 [facility] Comment on above: Performed By: #### Bettina Saha, RENP ####[address] , [place] 987[address]83 Lab Director: Eder Herrera MD Creatinine [Mass/Vol] 2.3 mg/dL High 0.70-1.20 [facility] Comment on above: Performed By: #### Bettina Saha, RENP ####[address] , [place] [id number] lab Director: Eder Herrera MD GFR/1.73 sq M.predicted among non-blacks MDRD (S/P/Bld) [Vol rate/Area] 31 mL/min/{1.73_m2} Low >60 [facility] Comment on above: Result Comment: Thes e results are not intended for use in patients <18 years of age.eGFR results are calculated without a race factor using the 2020 CKD-EPI equation.Careful clinical correlation is recommended, particularly when comparing to results calculated using previous equations.The CKD-EPI equation is less accurate in patients with extremes of muscle mass, extra-renal metabolism of creatine, excessive creatine ingestion, or following therapy that affects renal tubular secretion. Performed By: #### Bettina Saha, RENP ####[address] [place] [address] Lab Director: Eder Herrera MD Glucose [Mass/Vol] 137 mg/dL High 74-99 [facility] Comment on above: Performed By: #### Bettina Saha, RENP ####[address] [place] [address] Lab Director: Eder Herrera MD Phosphorus, Inorg. 3.7 mg/dL Normal 2.5-4.5 [facility] Comment on above: Performed By: #### Bettina Saha, RENP ####[address] [place] [address] Lab Director: Eder Herrera MD Potassium [Moles/Vol] 4.1 mmol/L Normal 3.7-5.3 [facility] Comment on above: Performed By: #### Bettina Saha, RENP ####[address] [place] [address] Lab Director: Eder Herrera MD Sodium [Moles/Vol] 136 mmol/L Normal 136-145 [facility] Comment on above: Performed By: #### Bettina Saha, RENP ####[address] [place] [address] Lab Director: Eder Herrera MD Urea nitrogen [Mass/Vol] 82 mg/dL High 8-23 [facility] Comment on above: Performed By: #### Bettina Saha, RENP ####[facility] [place], [place] 747[address]83 Lab Director: Eder Herrera MD PTH, Intacton 06-28-2024 Interpretation and review of laboratory results Abnormal [facility] Parathyrin.intact [Mass/Vol] 182.0 pg/mL High 15 - 65 pg/mL [facility] PTH, Intact 182.0 pg/mL High 15-65 [facility] Comment on above: Performed By: #### U AX, MG, RENP, URI, URTPRT, UMICAO, CBC ####[facility] [place] [address] lab Director: Eder Herrera MD#### PTHNCA ####[facility] [address] [place], [place] 4678508 lab Director: Jimenez Pruett MD CBCon 06-27-2024 Erythrocyte distribution width (RBC) [Ratio] 12.6 % 11.8 - 14.4 % [facility] Hematocrit (Bld) [Volume fraction] 36.8 % Low 40.7 - 50.3 % [facility] Hemoglobin (Bld) [Mass/Vol] 11.9 g/dL Low 13.0 - 17.0 g/dL [facility] Interpretation and review of laboratory results Abnormal [facility] MCH (RBC) [Entitic mass] 29.8 pg 25.2 - 33.5 pg [facility] MCHC (RBC) [Mass/Vol] 32.3 g/dL 28.4 - 34.8 g/dL [facility] MCV (RBC) [Entitic vol] 92.2 fL 82.6 - 102.9 fL [facility] Nucleated RBC/100 WBC (Bld) [Ratio] 0.0 % 0.0 per 100 WBC [facility] Platelet mean volume (Bld) [Entitic vol] 10.4 fL 8.1 - 13.5 fL [facility] Platelets (Bld) [#/Vol] 320 10*3/uL [facility] RBC (Bld) [#/Vol] 3.99 10*6/uL Low 4.21 - 5.7 7 m/uL [facility] WBC other (Bld) [#/Vol] 6.9 B on [facility] Erythrocyte distribution width (RBC) [Ratio] 12.6 % Normal 11.8-14.4 [facility] Comment on above: Performed By: #### U AX, MG, RENP, URI, URTPRT, UMICAO, CBC ####[address] [place], [place] 9723[address] Lab Director: Eder Herrera MD#### PTHNCA ####[address] [address] Lab Director: Jimenez Pruett MD Hematocrit (Bld) [Volume fraction] 36.8 % Low 40.7-50.3 [facility] Comment on above: Performed By: #### U AX, MG, RENP, URI, URTPRT, UMICAO, CBC ####[address] [place] [address]83 Lab Director: Eder Herrera MD#### PTHNCA ####[address] [address] Lab Director: Jimenez Pruett MD Hemoglobin (Bld) [Mass/Vol] 11.9 g/dL Low 13.0-17.0 [facility] Comment on above: Performed By: #### U AX, MG, RENP, URI, URTPRT, UMICAO, CBC ####[address] [place] [address]6783 Lab Director: Eder Herrera MD#### PTHNCA ####[address] [phone] Lab Director: Jimenez Pruett MD MCH (RBC) [Entitic mass] 29.8 pg Normal 25.2-33.5 [facility] Comment on above: Performed By: #### U AX, MG, RENP, URI, URTPRT, UMICAO, CBC ####[address] [place] [address]6783 Lab Director: Eder Herrera MD#### PTHNCA ####[address] [id number] Lab Director: Jimenez Pruett MD MCHC (RBC) [Mass/Vol] 32.3 g/dL Normal 28.4-34.8 [facility] Comment on above: Performed By: #### U AX, MG, RENP, URI, URTPRT, UMICAO, CBC ####[address] [place] [address]6783 Lab Director: Eder Herrera MD#### PTHNCA ####[place] [address] Lab Director: Jimenez Pruett MD MCV (RBC) [Entitic vol] 92.2 fL Normal 82.6-102.9 M [facility] Comment on above: Performed By: #### U AX, MG, RENP, URI, URTPRT, UMICAO, CBC ####[address] [place] [address]6783 Lab Director: Eder Herrera MD#### PTHNCA ####[address] [address] Lab Director: Jimenez Pruett MD NRBC Automated 0.0 per 100 WBC Normal 0.0 [facility] Comment on above: Performed By: #### U AX, MG, RENP, URI, URTPRT, UMICAO, CBC ####[address] [place] [address]83 Lab Director: Eder Herrera MD#### PTHNCA ####[facility] [address] [place], [place] [phone] Director: Jimenez Pruett MD Platelet mean volume (Bld) [Entitic vol] 10.4 fL Normal 8.1-13.5 [facility] Comment on above: Performed By: #### U AX, MG, RENP, URI, URTPRT, UMICAO, CBC ####[address] [place] [address]([facility])[phone] Director: Eder Herrera MD#### PTHNCA ####[address] [place], [place] [address])[phone] Director: Jimenez Pruett MD Platelets (Bld) [#/Vol] 320 10*3/uL Normal 138-453 [facility] Comment on above: Performed By: #### U AX, MG, RENP, URI, URTPRT, UMICAO, CBC ####[address] [place] [address] Lab Director: Eder Herrera MD#### PTHNCA ####[address] [place], [place] [phone] Director: Jimenez Pruett MD RBC (Bld) [#/Vol] 3.99 10*6/uL Low 4.21-5.77 [facility] Comment on above: Performed By: #### U AX, MG, RENP, URI, URTPRT, UMICAO, CBC ####[address] [place], [place] 7590983 Lab Director: Eder Herrera MD#### PTHNCA ####[address] [phone] Director: Jimenez Pruett MD WBC (Bld) [#/Vol] 6.9 10*3/uL Normal 3.5-11.3 [facility] Comment on above: Performed By: #### U AX, MG, RENP, URI, URTPRT, UMICAO, CBC ####[facility] [place] [address] [facility] Director: Eder Herrera MD#### PTHNCA ####[address] [place], [place] 6098208 Lab Director: Jimenez Pruett MD Magnesiumon 06-27-2024 Magnesium [Mass/Vol] 1.7 mg/dL 1.6 - 2 .4 mg/dL [facility] Magnesium [Mass/Vol] 1.7 mg/dL Normal 1.6-2.4 [facility] Comment on above: Performed By: #### U AX, MG, RENP, URI, URTPRT, UMICAO, CBC ####[address] [place] [address] [facility] Director: Eder Herrera MD#### PTHNCA ####[address] [place], [place] 5728408 Lab Director: Jimenez Pruett MD Microscopic Urinalysison Epithelial cells LM.HPF (Urine sed) [#/Area] 2 TO 5 [facility] RBC LM.HPF (Urine sed) [#/Area] None [facility] WBC LM.HPF (Urine sed) [#/Area] [address] [facility] No Panel Informationon 06-[address] [facility] [employer] [facility] Protein / creatinine ratio, urineon 06-27-2024 Creatinine (U) [Mass/Vol] 61.8 mg/dL 39.0 - 259.0 mg/dL [facility] Protein (U) [Mass/Vol] 7 mg/dL [place] [facility] [employer] [facility] Comment on above: No normal range esta blished. Urine Total Protein Creatinine Ratio 0.11 0.00 - 0.[address] [facility] Protein,Tot,[place] Uron 2024 Creatinine [Mass/Vol] 61.8 mg/dL Normal 39.0-259.0 [facility] Comment on above: Performed By: #### U AX, MG, RENP, URI, URTPRT, UMICAO, CBC ####[address] [place], [place] [id number] Lab Director: Eder Herrera MD#### PTHNCA ####[address] [place] [address] Lab Director: Jimenez Pruett MD Tot Prot. Conc. 7 mg/dL Normal [facility] Comment on above: Result Comment: No n ormal range established. Performed By: #### U AX, MG, RENP, URI, URTPRT, UMICAO, CBC ####[address] [place], [place] 276[address]83 Lab Director: Eder Herrera MD#### PTHNCA ####[address] [place] [address] Lab Director: Jimenez Pruett MD TP/Cre Ratio 0.11 Normal 0.00-0.20 [facility] Comment on above: Performed By: #### U AX, MG, RENP, URI, URTPRT, UMICAO, CBC ####[address] [place], [place] 9[address]83 Lab Director: Eder Herrera MD#### PTHNCA ####[address] [place] [address] Lab Director: Jimenez Pruett MD Renal Function Panelon 06-27 Albumin [Mass/Vol] 4.0 g/dL 3.5 - 5.2 g/dL [facility] Anion gap [Moles/Vol] 11 mmol/L 9 - 16 mmol/L [facility] Calcium [Mass/Vol] 8.4 mg/dL Low 8.6 - 10. 4 mg/dL [facility] Chloride [Moles/Vol] 99 mmol/L 98 - 10 7 mmol/L [facility] CO2 [Moles/Vol] 26 mmol/L 20 - 31 mmol/L [facility] Creatinine [Mass/Vol] 1.9 mg/dL High 0.70 - 1.20 mg/dL [facility] Yuliet [place] Rate 39 Low - PINF [facility] Comment on above: These results are not intended for use in patients <18 years of age. eGFR results are calculated without a race factor using the 2020 CKD-EPI equation. Careful clinical correlation is recommended, particularly when comparing to results calculated using previous equations. The CKD-EPI equation is less accurate in patients with extremes of muscle mass, extra-renal metabolism of creatine, excessive creatine ingestion, or following therapy that affects renal tubular secretion. Glucose [Mass/Vol] 108 mg/dL High 74 - 99 mg/dL [facility] Interpretation and review of laboratory results Abnormal [facility] Phosphate [Mass/Vol] 3.1 mg/dL 2.5 - 4 .5 mg/dL [facility] Potassium [Moles/Vol] 4.7 mmol/L 3.7 - 5.3 mmol/L [facility] Sodium [Moles/Vol] 136 mmol/L 136 - 145 mmol/L [facility] Urea nitrogen [Mass/Vol] 54 mg/dL High 8 - 23 mg/dL [facility] Urea nitrogen/Creatinine [Mass ratio] 28 mg/mg High 9 - 20 [facility] Albumin [Mass/Vol] 4.0 g/dL Normal 3.5-5.2 [facility] Comment on above: Performed By: #### U AX, MG, RENP, URI, URTPRT, UMICAO, CBC ####[facility] [address] [place] [address] Lab Director: Eder Herrera MD#### PTHNCA ####[facility] [address] [place] [address] Lab Director: Jimenez Pruett MD Anion gap [Moles/Vol] 11 mmol/L Normal 9-16 [facility] Comment on above: Performed By: #### U AX, MG, RENP, URI, URTPRT, UMICAO, CBC ####[address] [place], [place] 5[address]83 Lab Director: Eder Herrera MD#### PTHNCA ####[address] [address] Lab Director: Jimenez Pruett MD BUN/CRE Ratio 28 High 9-20 [facility] Comment on above: Performed By: #### U AX, MG, RENP, URI, URTPRT, UMICAO, CBC ####[address] [place], [place] 9300[address] Lab Director: Eder Herrera MD#### PTHNCA ####[address] [address] Lab Director: Jimenez Pruett MD Calcium [Mass/Vol] 8.4 mg/dL Low 8.6-10.4 [facility] Comment on above: Performed By: #### U AX, MG, RENP, URI, URTPRT, UMICAO, CBC ####[address] , [place] 19[address]83 Lab Director: Eder Herrera MD#### PTHNCA ####[address] [address] Lab Director: Jimenez Pruett MD Chloride [Moles/Vol] 99 mmol/L Normal 98-107 [facility] Comment on above: Performed By: #### U AX, MG, RENP, URI, URTPRT, UMICAO, CBC ####[address] [place], [place] 2589483 Lab Director: Eder Herrera MD#### PTHNCA ####[address] [address] Lab Director: Jimenez Pruett MD CO2 [Moles/Vol] 26 mmol/L Normal 20-31 [facility] Comment on above: Performed By: #### U AX, MG, RENP, URI, URTPRT, UMICAO, CBC ####[facility] [place] [address] Lab Director: Eder Herrera MD#### PTHNCA ####[facility] [address] [place], [place] 0840508 Lab Director: Jimenez Pruett MD Creatinine [Mass/Vol] 1.9 mg/dL High 0.70-1.20 [facility] Comment on above: Performed By: #### U AX, MG, RENP, URI, URTPRT, UMICAO, CBC ####[address] [place], [place] 3024[address] Lab Director: Eder Herrera MD#### PTHNCA ####[address] [place], [place] 3089408 Lab Director: Jimenez Pruett MD GFR/1.73 sq M.predicted among non-blacks MDRD (S/P/Bld) [Vol rate/Area] 39 mL/min/{1.73_m2} Low >60 [facility] Comment on above: Result Comment: Thes e results are not intended for use in patients <18 years of age.eGFR results are calculated without a race factor using the 2020 CKD-EPI equation.Careful clinical correlation is recommended, particularly when comparing to results calculated using previous equations.The CKD-EPI equation is less accurate in patients with extremes of muscle mass, extra-renal metabolism of creatine, excessive creatine ingestion, or following therapy that affects renal tubular secretion. Performed By: #### U AX, MG, RENP, URI, URTPRT, UMICAO, CBC ####[address] [place], [place] 37[address] Lab Director: Eder Herrera MD#### PTHNCA ####[address] [place] [address] Lab Director: Jimenez Pruett MD Glucose [Mass/Vol] 108 mg/dL High 74-99 [facility] Comment on above: Performed By: #### U AX, MG, RENP, URI, URTPRT, UMICAO, CBC ####[address] [place], [place] [address])[phone] Director: Eder Herrera MD#### PTHNCA ####[address] [address] Lab Director: Jimenez Pruett MD Phosphorus, Inorg. 3.1 mg/dL Normal 2.5-4.5 [facility] Comment on above: Performed By: #### U AX, MG, RENP, URI, URTPRT, UMICAO, CBC ####[address] [place] [place] [id number])[phone] Director: Eder Herrera MD#### PTHNCA ####[address] [address] Lab Director: Jimenez Pruett MD Potassium [Moles/Vol] 4.7 mmol/L Normal 3.7-5.3 [facility] Comment on above: Performed By: #### U AX, MG, RENP, URI, URTPRT, UMICAO, CBC ####[address] [place], [place] 0[address]83 Lab Director: Eder Herrera MD#### PTHNCA ####[address] [address] Lab Director: Jimenez Pruett MD Sodium [Moles/Vol] 136 mmol/L Normal 136-145 [facility] Comment on above: Performed By: #### U AX, MG, RENP, URI, URTPRT, UMICAO, CBC ####[address] , [place] [id number] Lab Director: Eder Herrera MD#### PTHNCA ####[address] [address] Lab Director: Jimenez Pruett MD Urea nitrogen [Mass/Vol] 54 mg/dL High 8-23 [facility] Comment on above: Performed By: #### U AX, MG, RENP, URI, URTPRT, UMICAO, CBC ####[address] [place], [place] 1373883 Lab Director: Eder Herrera MD#### PTHNCA ####[address] [address] Lab Director: Jimenez Pruett MD UA w/Reflex Cultureon 2024 Bilirubin, SemiQt,Ur Negative Normal NEG [facility] Comment on above: Performed By: #### U AX, MG, RENP, URI, URTPRT, UMICAO, CBC ####[address] , [place] 8875983 Lab Director: Eder Herrera MD#### PTHNCA ####[address] [address] Lab Director: Jimenez Pruett MD Blood, Urine Negative Normal NEG [facility] Comment on above: Performed By: #### U AX, MG, RENP, URI, URTPRT, UMICAO, CBC ####[address] , [place] [phone] Lab Director: Eder Herrera MD#### PTHNCA ####[address] [phone] Lab Director: Jimenez Pruett MD Clarity (U) Clear Normal CLEAR [facility] Comment on above: Performed By: #### U AX, MG, RENP, URI, URTPRT, UMICAO, CBC ####[facility] [place] , [place] 0574283 Lab Director: Eder Herrera MD#### PTHNCA ####[place] [address] [place], [place] 5316108 Lab Director: Jimenez Pruett MD Color (U) Yellow Normal YEL [facility] Comment on above: Performed By: #### U AX, MG, RENP, URI, URTPRT, UMICAO, CBC ####[address] , [place] 7438483 Lab Director: Eder Herrera MD#### PTHNCA ####[address] [phone] Lab Director: Jimenez Pruett MD Glucose Ql (U) Negative Normal NEG [facility] Comment on above: Performed By: #### U AX, MG, RENP, URI, URTPRT, UMICAO, CBC ####[address] , [place] 2954983 Lab Director: Eder Herrera MD#### PTHNCA ####[address] [id number] Lab Director: Jimenez Pruett MD Ketones Ql (U) Negative Normal NEG [facility] Comment on above: Performed By: #### U AX, MG, RENP, URI, URTPRT, UMICAO, CBC ####[facility] [place] , [place] 1092983 Lab Director: Eder Herrera MD#### PTHNCA ####[address] [phone] Lab Director: Jimenez Pruett MD Leukocyte esterase Test strip Ql (U) Negative Normal NEG [facility] Comment on above: Performed By: #### U AX, MG, RENP, URI, URTPRT, UMICAO, CBC ####[address] [place], [place] [address])[phone] Director: Eder Herrera MD#### PTHNCA ####[address] [address] Lab Director: Jimenez rPuett MD Nitrite,Ur Negative Normal NEG [facility] Comment on above: Performed By: #### U AX, MG, RENP, URI, URTPRT, UMICAO, CBC ####[address] [place], [place] [address])[phone] Director: Eder Herrera MD#### PTHNCA ####[address] [address] Lab Director: Jimenez Pruett MD PH,Ur 6.0 Normal 5.0-9.0 [facility] Comment on above: Performed By: #### U AX, MG, RENP, URI, URTPRT, UMICAO, CBC ####[address] [place] 9776783 Lab Director: Eder Herrera MD#### PTHNCA ####[address] [address] Lab Director: Jimenez Pruett MD Protein Ql (U) Negative Normal NEG [facility] Comment on above: Performed By: #### U AX, MG, RENP, URI, URTPRT, UMICAO, CBC ####[address] [place], [place] 5809683 Lab Director: Eder Herrera MD#### PTHNCA ####[place] [place] [address] Lab Director: Jimenez Pruett MD Spec. [place],Ur 1.010 Normal 1.010-1.020 [facility] Comment on above: Performed By: #### U AX, MG, RENP, URI, URTPRT, UMICAO, CBC ####[address] [place], [place] 5016083 Lab Director: Eder Herrera MD#### PTHNCA ####[place] [place], [place] 2965008 Lab Director: Jimenez Pruett MD Urobilinogen,Ur Normal Normal 0.0-1.0 [facility] Comment on above: Performed By: #### U AX, MG, RENP, URI, URTPRT, UMICAO, CBC ####[address] [place], [place] 8908383 lab Director: Eder Herrera MD#### PTHNCA ####[address] [address] Lab Director: Jimenez Pruett MD Uric Acidon 06-27-2024 Urate [Mass/Vol] 7.0 mg/dL 3.4 - 7.0 mg/dL [facility] Urate [Mass/Vol] 7.0 mg/dL Normal 3.4-7.0 [facility] Comment on above: Performed By: #### U AX, MG, RENP, URI, URTPRT, UMICAO, CBC ####[address] [place] 9776783 lab Director: Eder Herrera MD#### PTHNCA ####[place] [address] [place] [address] Lab Director: Jimenez Pruett MD Urinalysis with Reflex to Cu ltureon 06-27-2024 Bilirubin Ql (U) Negative NEGATIVE [facility] Clarity (U) Clear Clear Bon [facility] Color (U) Yellow Yellow [facility] Glucose Test strip (U) [Mass/Vol] Negative NEGATIVE mg/dL [facility] Hemoglobin Auto test strip Ql (U) Negative NEGATIVE [facility] Ketones (U) [Mass/Vol] Negative NEGAT PAO mg/dL [facility] Leukocyte esterase Test strip Ql (U) Negative NEGATIVE [facility] Nitrite Ql (U) Negative NEGATIVE [facility] pH (U) 6.0 [pH] 5.0 - 9.0 [facility] Protein (U) [Mass/Vol] Negative NEGAT PAO mg/dL [facility] Specific gravity (U) [Rel density] 1.010 1.010 - 1.020 [facility] Urobilinogen Qn (U) Normal 0.0 - 1. 0 EU/dL [facility] Urinalysis,Microon 5 Epithelial cells LM Ql (Urine sed) 2 TO 5 Normal 0-5 [facility] Comment on above: Performed By: #### U AX, MG, RENP, URI, URTPRT, UMICAO, CBC ####[facility] [place] [address] Lab Director: Eder Herrera MD#### PTHNCA ####[address] [phone] Lab Director: Jimenez Pruett MD Urine RBC's None Normal 0-2 [facility] Comment on above: Performed By: #### U AX, MG, RENP, URI, URTPRT, UMICAO, CBC ####[facility] [place] [address] Lab Director: Eder Herrera MD#### PTHNCA ####[address] [place], [place] 8423508 Lab Director: Jimenez Pruett MD Urine WBC's 0 TO 2 Normal 0-5 [facility] Comment on above: Performed By: #### U AX, MG, RENP, URI, URTPRT, UMICAO, CBC ####[facility] [place], [place] 0001483 Lab Director: Eder Herrera MD#### PTHNCA ####[facility] [place], [place] 7300108 lab Director: Jimenez Pruett MD Microscopic Urinalysison Epithelial cells LM.HPF (Urine sed) [#/Area] 0 TO 2 [facility] RBC LM.HPF (Urine sed) [#/Area] None [facility] WBC LM.HPF (Urine sed) [#/Area] None [facility] Protein / creatinine ratio, urineon 05-13-2024 Creatinine (U) [Mass/Vol] 78.0 mg/dL 39.0 - 259.0 mg/dL [facility] Protein (U) [Mass/Vol] mg/dL mg/dL [facility] Comment on above: No normal range esta blished. Urine Total Protein Creatinine Ratio Can not be calculated 0.00 - 0.20 [facility] Protein,Tot,[place] Uron 2023 Creatinine [Mass/Vol] 78.0 mg/dL Normal 39.0-259.0 [facility] Comment on above: Performed By: #### U RTPRT, [facility], UAX ####[address] , [place] 1118383 Lab Director: Eder Herrera MD Tot Prot. Conc. <6 Normal [facility] Comment on above: Result Comment: No n ormal range established. Performed By: #### U RTPRT, [facility], UAX ####[facility] [place], [place] 8024883 Lab Director: Eder Herrera MD TP/Cre Ratio Can not be calculated Normal 0.00-0.20 [facility] Comment on above: Performed By: #### U RTPRT, UMICAO, UAX ####[address] [place] [address] Lab Director: Eder Herrera MD UA w/Reflex Cultureon 2023 Bilirubin, SemiQt,Ur Negative Normal NEG [facility] Comment on above: Performed By: #### U RTPRT, UMICAO, UAX ####[address] [place] [address] Lab Director: Eder Herrera MD Blood, Urine Negative Normal NEG [facility] Comment on above: Performed By: #### U RTPRT, UMICAO, UAX ####[address] , [place] 0853383 Lab Director: Eder Herrera MD Clarity (U) Clear Normal CLEAR [facility] Comment on above: Performed By: #### U RTPRT, UMICAO, UAX ####[address] , [place] 1023683 Lab Director: Eder Herrera MD Color (U) Yellow Normal YEL [facility] Comment on above: Performed By: #### U RTPRT, UMICAO, UAX ####[address] [place] [address] Lab Director: Eder Herrera MD Glucose Ql (U) 3+ mg/dL Abnormal NEG [facility] Comment on above: Performed By: #### U RTPRT, UMICAO, UAX ####[address] , [place] 0417983 Lab Director: Eder Herrera MD Ketones Ql (U) Negative Normal NEG [facility] Comment on above: Performed By: #### U RTPRT, UMICAO, UAX ####[address] , [place] 3843483 Lab Director: Eder Herrera MD Leukocyte esterase Test strip Ql (U) Negative Normal NEG [facility] Comment on above: Performed By: #### U RTPRT, UMICAO, UAX ####[address] , [place] 8537283 lab Director: Eder Herrera MD Nitrite,Ur Negative Normal NEG [facility] Comment on above: Performed By: #### U RTPRT, [facility], [facility] ####[address] , [place] 3684583 lab Director: Eder Herrera MD PH,Ur 6.0 Normal 5.0-9.0 [facility] Comment on above: Performed By: #### U RTPRT, [facility], UAX ####[address] , [place] 9982083 lab Director: Eder Herrera MD Protein Ql (U) Negative Normal NEG [facility] Comment on above: Performed By: #### U RTPRT, [facility], [facility]AX ####[address] [place] [address] lab Director: Eder Herrera MD Spec. [place],Ur 1.010 Normal 1.010-1.020 [facility] Comment on above: Performed By: #### U RTPRT, UMICAO, UAX ####[address] [place] [address] lab Director: Eder Herrera MD Urobilinogen,Ur Normal Normal 0.0-1.0 [facility] Comment on above: Performed By: #### U RTPRT, [facility], [facility] ####[address] [place] [address] lab Director: Eder Herrera MD Urinalysis with Reflex to Cu ltureon 05-13-2024 Bilirubin Ql (U) Negative NEGATIVE [facility] Glucose Test strip (U) [Mass/Vol] 3+ Abnormal NEGATIVE mg/dL [facility] Hemoglobin Auto test strip Ql (U) Negative NEGATIVE [facility] Interpretation and review of laboratory results Abnormal [facility] Ketones (U) [Mass/Vol] Negative NEGAT PAO mg/dL [facility] Nitrite Ql (U) Negative NEGATIVE [facility] pH (U) 6.0 [pH] 5.0 - 9.0 [facility] Protein (U) [Mass/Vol] Negative NEGAT PAO mg/dL [facility] Specific gravity (U) [Rel density] 1.010 1.010 - 1.020 [facility] Urobilinogen Qn (U) Normal 0.0 - 1. 0 EU/dL [facility] Urinalysis,Microon 4 Epithelial cells LM Ql (Urine sed) 0 TO 2 Normal 0-5 [facility] Comment on above: Performed By: #### U RTPRT, [facility], UAX ####[facility] [place] , [place] 4410883 lab Director: Eder Herrera MD Urine RBC's None Normal 0-2 [facility] Comment on above: Performed By: #### U RTPRT, [facility], UAX ####[facility] [place] [address] , [place] 5931983 lab Director: Eder Herrera MD Urine WBC's None Normal 0-5 [facility] Comment on above: Performed By: #### U RTPRT, [facility], UAX ####[facility] [place] , [place] 4420283 lab Director: Eder Herrera MD CBCon 05-11-2024 Erythrocyte distribution width (RBC) [Ratio] 12.4 % Normal 11.8-14.4 [facility] Comment on above: Performed By: #### M G, RENP, URI, CBC ####[address] [place], [place] 7557783 Lab Director: Eder Herrera MD#### PTHNCA ####[address] [phone] Lab Director: Jimenez Pruett MD Hematocrit (Bld) [Volume fraction] 39.9 % Low 40.7-50.3 [facility] Comment on above: Performed By: #### VALARIE Foster URI, CBC ####[address] [place], [place] 0814683 Lab Director: Eder Herrera MD#### PTHNCA ####[address] [address] Lab Director: Jimenez Pruett MD Hemoglobin (Bld) [Mass/Vol] 13.6 g/dL Normal 13.0-17.0 [facility] Comment on above: Performed By: #### VALARIE Foster URI, CBC ####[address] [place], [place] 2171383 Lab Director: Eder Herrera MD#### PTHNCA ####[address] [address] Lab Director: Jimenez Pruett MD MCH (RBC) [Entitic mass] 29.6 pg Normal 25.2-33.5 [facility] Comment on above: Performed By: #### VALARIE Foster URI, CBC ####[address] [place], [place] 4227983 Lab Director: Eder Herrera MD#### PTHNCA ####[address] [place] [place], [place] 7087108 Lab Director: Jimenez Pruett MD MCHC (RBC) [Mass/Vol] 34.1 g/dL Normal 28.4-34.8 [facility] Comment on above: Performed By: #### VALARIE Foster URI, CBC ####[address] [place] 9776783[facility])[phone] Director: Eder Herrera MD#### PTHNCA ####[address] [phone] Director: Jimenez Pruett MD MCV (RBC) [Entitic vol] 86.7 fL Normal 82.6-102.9 [facility] on [facility] Comment on above: Performed By: #### VALARIE Foster URI, CBC ####[address] [place] 9776783[facility])[phone] Director: Eder Herrera MD#### PTHNCA ####[place], [place] [phone] Director: Jimenez Pruett MD Platelet mean volume (Bld) [Entitic vol] 12.0 fL Normal 8.1-13.5 [facility] Comment on above: Performed By: #### VALARIE Foster URI, CBC ####[address] [place] 9776783 Lab Director: Eder Herrera MD#### PTHNCA ####[place], [place] [phone] Director: Jimenez Pruett MD Platelets (Bld) [#/Vol] 272 10*3/uL Normal 138-453 [facility] Comment on above: Performed By: #### VALARIE Foster URI, CBC ####[address] [place] 9776732 Lab Director: Eder Herrera MD#### PTHNCA ####[address] [phone] Director: Jimenez Pruett MD RBC (Bld) [#/Vol] 4.60 10*6/uL Normal 4.21-5.77 [facility] Comment on above: Performed By: #### VALARIE Foster URI, CBC ####[address] [place], [place] 3060083 Lab Director: Eder Herrera MD#### PTHNCA ####[address] [place], [place] 1696108 Lab Director: Jimenez Pruett MD Interpretation and review of laboratory results Abnormal [facility] Nucleated RBC/100 WBC (Bld) [Ratio] 0.0 % 0.0 per 100 WBC [facility] WBC other (Bld) [#/Vol] 6.4 B on [facility] NRBC Automated 0.0 per 100 WBC Normal 0.0 [facility] Comment on above: Performed By: #### VALARIE Foster URI, CBC ####[address] [place], [place] 2923383 Lab Director: Eder Herrera MD#### PTHNCA ####[address] [place] [address] Lab Director: Jimenez Pruett MD WBC (Bld) [#/Vol] 6.4 10*3/uL Normal 3.5-11.3 [facility] Comment on above: Performed By: #### VALARIE Foster URI, CBC ####[address] [place], [place] 0790983 Lab Director: Eder Herrera MD#### PTHNCA ####[facility] [place], [place] 1467508 Lab Director: Jimenez Pruett MD Magnesiumon 05-11-2024 Magnesium [Mass/Vol] 1.8 mg/dL 1.6 - 2 .4 mg/dL [facility] Magnesium [Mass/Vol] 1.8 mg/dL Normal 1.6-2.4 [facility] Comment on above: Performed By: #### VALARIE Foster URI, CBC ####[facility] [place] [address] lab Director: Eder Herrera MD#### PTHNCA ####[facility] [address] [place], [place] 9272908 Lab Director: Jimenez Pruett MD No Panel Informationon 05-11 Interpretation and review of laboratory results Abnormal [facility] PTH, Intacton 05-11-2024 Interpretation and review of laboratory results Abnormal [facility] Parathyrin.intact [Mass/Vol] 164.0 pg/mL High 15 - 65 pg/mL [facility] PTH, Intact 164.0 pg/mL High 15-65 [facility] Comment on above: Performed By: #### VALARIE Foster URI, CBC ####[facility] [place] [address] lab Director: Eder Herrera MD#### PTHNCA ####[facility] [address] [place], [place] 1750008 lab Director: Jimenez Pruett MD Renal Function Panelon 05-11 Albumin [Mass/Vol] 4.1 g/dL 3.5 - 5.2 g/dL [facility] Anion gap [Moles/Vol] 17 mmol/L High 9 - 16 mmol/L [facility] Calcium [Mass/Vol] 8.8 mg/dL 8.6 - 10. 4 mg/dL [facility] Chloride [Moles/Vol] 89 mmol/L Low 98 - 10 7 mmol/L [facility] CO2 [Moles/Vol] 30 mmol/L 20 - 31 mmol/L [facility] Creatinine [Mass/Vol] 2.7 mg/dL High 0.70 - 1.20 mg/dL [facility] Est, Glom Filt Rate 26 Low - PINF [facility] Comment on above: These results are not intended for use in patients <18 years of age. eGFR results are calculated without a race factor using the 2020 CKD-EPI equation. Careful clinical correlation is recommended, particularly when comparing to results calculated using previous equations. The CKD-EPI equation is less accurate in patients with extremes of muscle mass, extra-renal metabolism of creatine, excessive creatine ingestion, or following therapy that affects renal tubular secretion. Glucose [Mass/Vol] 216 mg/dL High 74 - 99 mg/dL [facility] Phosphate [Mass/Vol] 2.4 mg/dL Low 2.5 - 4 .5 mg/dL [facility] Potassium [Moles/Vol] 2.8 mmol/L Critically low 3.7 - 5.3 mmol/L [facility] Sodium [Moles/Vol] 136 mmol/L 136 - 145 mmol/L [facility] Urea nitrogen [Mass/Vol] 86 mg/dL High 8 - 23 mg/dL [facility] Urea nitrogen/Creatinine [Mass ratio] 32 mg/mg High 9 - 20 [facility] Albumin [Mass/Vol] 4.1 g/dL Normal 3.5-5.2 [facility] Comment on above: Performed By: #### VALARIE Foster URI, CBC ####[address] [place] [phone] Lab Director: Eder Herrera MD#### PTHNCA ####[address] [place], [place] 3085008 Lab Director: Jimenez Pruett MD Anion gap [Moles/Vol] 17 mmol/L High 9-16 [facility] Comment on above: Performed By: #### VALARIE Foster URI, CBC ####[address] [place] 6489483 Lab Director: Eder Herrera MD#### PTHNCA ####[address] [place], [place] 2161608 Lab Director: Jimenez Pruett MD BUN/CRE Ratio 32 High 9-20 [facility] Comment on above: Performed By: #### VALARIE Foster URI, CBC ####[address] [place] [address]([facility])[phone] Director: Eder Herrera MD#### PTHNCA ####[address] [address])[phone] Director: Jimenez Pruett MD Calcium [Mass/Vol] 8.8 mg/dL Normal 8.6-10.4 [facility] Comment on above: Performed By: #### VALARIE Foster URI, CBC ####[address] [place] 6489481([facility])[phone] Director: Eder Herrera MD#### PTHNCA ####[address] [address])[phone] Director: Jimenez Pruett MD Chloride [Moles/Vol] 89 mmol/L Low 98-107 [facility] Comment on above: Performed By: #### VALARIE Foster URI, CBC ####[address] [place] [address]([facility])[phone] Director: Eder Herrera MD#### PTHNCA ####[address] [address])[phone] Director: Jimenez Pruett MD CO2 [Moles/Vol] 30 mmol/L Normal 20-31 [facility] Comment on above: Performed By: #### VAALRIE Foster URI, CBC ####[address] [place] [address]([facility])[phone] Director: Eder Herrera MD#### PTHNCA ####[address] [place] [address] Lab Director: Jimenez Pruett MD Creatinine [Mass/Vol] 2.7 mg/dL High 0.70-1.20 [facility] Comment on above: Performed By: #### M VALARIE Saha URI, CBC ####[address] [place], [place] 4751683 Lab Director: Eder Herrera MD#### PTHNCA ####[address] [place] [address] Lab Director: Jimenez Pruett MD GFR/1.73 sq M.predicted among non-blacks MDRD (S/P/Bld) [Vol rate/Area] 26 mL/min/{1.73_m2} Low >60 [facility] Comment on above: Result Comment: Thes e results are not intended for use in patients <18 years of age.eGFR results are calculated without a race factor using the 2020 CKD-EPI equation.Careful clinical correlation is recommended, particularly when comparing to results calculated using previous equations.The CKD-EPI equation is less accurate in patients with extremes of muscle mass, extra-renal metabolism of creatine, excessive creatine ingestion, or following therapy that affects renal tubular secretion. Performed By: #### VALARIE Foster URI, CBC ####[address] [place] [address] Lab Director: Eder Herrera MD#### PTHNCA ####[facility] [place] [address] Lab Director: Jimenez Pruett MD Glucose [Mass/Vol] 216 mg/dL High 74-99 [facility] Comment on above: Performed By: #### M VALARIE Saha URI, CBC ####[address] [place] [address] Lab Director: Eder Herrera MD#### PTHNCA ####[facility] [place], [place] [phone])[phone] Director: Jimenez Pruett MD Phosphorus, Inorg. 2.4 mg/dL Low 2.5-4.5 [facility] Comment on above: Performed By: #### M G RENP, URI, CBC ####[address] [place] [address]([facility])[phone] Director: Eder Herrera MD#### PTHNCA ####[address] [place] [address] Lab Director: Jimenez Pruett MD Potassium [Moles/Vol] 2.8 mmol/L Critically low 3.7-5.3 [facility] Comment on above: Performed By: #### M MIK SahaP URI, CBC ####[address] [place] [address]([facility])[phone] Director: Eder Herrera MD#### PTHNCA ####[address] [address])[phone] Director: Jimenez Pruett MD Sodium [Moles/Vol] 136 mmol/L Normal 136-145 [facility] Comment on above: Performed By: #### MIK FosterP URI, CBC ####[address] [place], [place] 0789283 Lab Director: Eder Herrera MD#### PTHNCA ####[address] [address] Lab Director: Jimenez Pruett MD Urea nitrogen [Mass/Vol] 86 mg/dL High 8-23 [facility] Comment on above: Performed By: #### M MIK SahaP URI, CBC ####[address] [place], [place] 5826183 Lab Director: Eder Herrera MD#### PTHNCA ####[facility] [place], [place] [phone] Director: Jimenez Pruett MD Uric Acidon 05-11-2024 Urate [Mass/Vol] 13.2 mg/dL High 3.4 - 7.0 mg/dL [facility] Urate [Mass/Vol] 13.2 mg/dL High 3.4-7.0 [facility] Comment on above: Performed By: #### M G, RENP, URI, CBC ####[facility] [place] [address] [place] , [place] 0352183 Lab Director: Eder Herrera MD#### PTHNCA ####[facility] [id number] [place] [address] Lab Director: Jimenez Pruett MD PTH, Intacton 05-08-2024 PTH, Intact 166.0 pg/mL High [facility] Comment on above: Performed By: #### I NPTH ####[facility] [place] [address] Lab Director: Jimenez Pruett MD#### MG, CBC, BMP, BNP, RICHAR ####[facility] [place] [address] Lab Director: Eder Herrera MD Basic Metabolic Panel 04-24 Anion gap [Moles/Vol] 15 mmol/L 9 - 16 mmol/L [facility] Calcium [Mass/Vol] 9.6 mg/dL 8.6 - 10. 4 mg/dL [facility] Chloride [Moles/Vol] 95 mmol/L Low 98 - 10 7 mmol/L [facility] CO2 [Moles/Vol] 29 mmol/L 20 - 31 mmol/L [facility] Creatinine [Mass/Vol] 2.1 mg/dL High 0.70 - 1.20 mg/dL [facility] Est, Glom Filt Rate 34 Low - PINF [facility] Comment on above: These results are not intended for use in patients <18 years of age. eGFR results are calculated without a race factor using the 2020 CKD-EPI equation. Careful clinical correlation is recommended, particularly when comparing to results calculated using previous equations. The CKD-EPI equation is less accurate in patients with extremes of muscle mass, extra-renal metabolism of creatine, excessive creatine ingestion, or following therapy that affects renal tubular secretion. Glucose [Mass/Vol] 150 mg/dL High 74 - 99 mg/dL [facility] Potassium [Moles/Vol] 3.4 mmol/L Low 3.7 - 5.3 mmol/L [facility] Sodium [Moles/Vol] 139 mmol/L 136 - 145 mmol/L [facility] Urea nitrogen [Mass/Vol] 62 mg/dL High 8 - 23 mg/dL [facility] Urea nitrogen/Creatinine [Mass ratio] 30 mg/mg High 9 - 20 [facility] Basic Metabolic Profon 05-06 Anion gap [Moles/Vol] 15 mmol/L Normal -16 [facility] Comment on above: Performed By: #### I NPTH ####[place] [address] Lab Director: Jimenez Pruett MD#### MG, CBC, BMP, BNP, RICHAR ####[address] [place] [address] Lab Director: Eder Herrera MD BUN/CRE Ratio 30 High - [facility] Comment on above: Performed By: #### I NPTH ####[address] [phone] Lab Director: Jimenez Pruett MD#### MG, CBC, BMP, BNP, RICHAR ####[address] [place] [id number] Lab Director: Eder Herrera MD Calcium [Mass/Vol] 9.6 mg/dL Normal 8.6-10.4 [facility] Comment on above: Performed By: #### I NPTH ####[address] [place] [address] Lab Director: Jimenez Pruett MD#### MG, CBC, BMP, BNP, RICHAR ####[address] [place], [place] 260[address]83 Lab Director: Eder Herrera MD Chloride [Moles/Vol] 95 mmol/L Low 98-107 [facility] Comment on above: Performed By: #### I NPTH ####[address] [place] [address] Lab Director: Jimenez Pruett MD#### MG, CBC, BMP, BNP, RICHAR ####[address] [place], [place] [id number] Lab Director: Eder Herrera MD CO2 [Moles/Vol] 29 mmol/L Normal 20-31 [facility] Comment on above: Performed By: #### I NPTH ####[address] [address] Lab Director: Jimenez Pruett MD#### MG, CBC, BMP, BNP, RICHAR ####[address] [place], [place] 6370783 Lab Director: Eder Herrera MD Creatinine [Mass/Vol] 2.1 mg/dL High 0.70-1.20 [facility] Comment on above: Performed By: #### I NPTH ####[address] [phone] Lab Director: Jimenez Pruett MD#### MG, CBC, BMP, BNP, RICHAR ####[address] [place], [place] 5650383 Lab Director: Eder Herrera MD GFR/1.73 sq M.predicted among non-blacks MDRD (S/P/Bld) [Vol rate/Area] 34 mL/min/{1.73_m2} Low >60 [facility] Comment on above: Result Comment: Thes e results are not intended for use in patients <18 years of age.eGFR results are calculated without a race factor using the 2020 CKD-EPI equation.Careful clinical correlation is recommended, particularly when comparing to results calculated using previous equations.The CKD-EPI equation is less accurate in patients with extremes of muscle mass, extra-renal metabolism of creatine, excessive creatine ingestion, or following therapy that affects renal tubular secretion. Performed By: #### I NPTH ####[address] [address] Lab Director: Jimenez Pruett MD#### MG, CBC, BMP, BNP, RICHAR ####[address] [place], [place] [id number] Lab Director: Eder Herrera MD Glucose [Mass/Vol] 150 mg/dL High 74-99 [facility] Comment on above: Performed By: #### I NPTH ####[address] [address] Lab Director: Jimenez Pruett MD#### MG, CBC, BMP, BNP, RICHAR ####[address] [place], [place] 1141883 Lab Director: Eder Herrera MD Potassium [Moles/Vol] 3.4 mmol/L Low 3.7-5.3 [facility] Comment on above: Performed By: #### I NPTH ####[address] [address] Lab Director: Jimenez Pruett MD#### MG, CBC, BMP, BNP, RICHAR ####[address] [place], [place] 287[address]83 Lab Director: Eder Herrera MD Sodium [Moles/Vol] 139 mmol/L Normal 136-145 [facility] Comment on above: Performed By: #### I NPTH ####[address] [address] Lab Director: Jimenez Pruett MD#### MG, CBC, BMP, BNP, RICHAR ####[address] [place] [address]6783 [facility] Director: Eder Herrera MD Urea nitrogen [Mass/Vol] 62 mg/dL High 8-23 [facility] Comment on above: Performed By: #### I NPTH ####[address] [place] [address] Lab Director: Jimenez Pruett MD#### MG, CBC, BMP, BNP, RICHAR ####[address] [place] 9[address]6783 lab Director: Eder Herrera MD Brain Natri. Peptideon 05-06 Natriuretic peptide B (Bld) [Mass/Vol] 337 pg/mL High 0-125 [facility] Comment on above: Performed By: #### I NPTH ####[address] [place] [address] Lab Director: Jimenez Pruett MD#### MG, CBC, BMP, BNP, RICHAR ####[address] [place], [place] 2393783 lab Director: Eder Herrera MD Brain Natriuretic Peptideon 05-06-2024 Natriuretic peptide B (Bld) [Mass/Vol] 337 pg/mL High 0 - 125 pg/mL [facility] CBCon 05-06-2024 Erythrocyte distribution width (RBC) [Ratio] 12.5 % 11.8 - 14.4 % [facility] Hematocrit (Bld) [Volume fraction] 41.4 % 40.7 - 50.3 % [facility] Hemoglobin (Bld) [Mass/Vol] 13.6 g/dL 13.0 - 17.0 g/dL [facility] MCH (RBC) [Entitic mass] 29.4 pg 25.2 - 33.5 pg [facility] MCHC (RBC) [Mass/Vol] 32.9 g/dL 28.4 - 34.8 g/dL [facility] MCV (RBC) [Entitic vol] 89.6 fL 82.6 - 102.9 fL [facility] Nucleated RBC/100 WBC (Bld) [Ratio] 0.0 % 0.0 per 100 WBC [facility] Platelet mean volume (Bld) [Entitic vol] 11.6 fL 8.1 - 13.5 fL [facility] Platelets (Bld) [#/Vol] 283 10*3/uL [facility] RBC (Bld) [#/Vol] 4.62 10*6/uL 4.21 - 5.7 7 m/uL [facility] WBC other (Bld) [#/Vol] 7.3 B on [facility] Erythrocyte distribution width (RBC) [Ratio] 12.5 % Normal 11.8-14.4 [facility] Comment on above: Performed By: #### I NPTH ####[address] [address] Lab Director: Jimenez Pruett MD#### MG, CBC, BMP, BNP, RICHAR ####[address] [place] [phone] Lab Director: Eder Herrera MD Hematocrit (Bld) [Volume fraction] 41.4 % Normal 40.7-50.3 [facility] Comment on above: Performed By: #### I NPTH ####[address] [address] Lab Director: Jimenez Pruett MD#### MG, CBC, BMP, BNP, RICHAR ####[address] [place] [phone] Lab Director: Eder Herrera MD Hemoglobin (Bld) [Mass/Vol] 13.6 g/dL Normal 13.0-17.0 [facility] Comment on above: Performed By: #### I NPTH ####[address] [phone] Lab Director: Jimenez Pruett MD#### MG, CBC, BMP, BNP, RICHAR ####[address] [place] 9776783 Lab Director: Eder Herrera MD MCH (RBC) [Entitic mass] 29.4 pg Normal 25.2-33.5 [facility] Comment on above: Performed By: #### I NPTH ####[address] [address] Lab Director: Jimenez Pruett MD#### MG, CBC, BMP, BNP, RICHAR ####[address] [place] 9[address]6783 lab Director: Eder Herrera MD MCHC (RBC) [Mass/Vol] 32.9 g/dL Normal 28.4-34.8 [facility] Comment on above: Performed By: #### I NPTH ####[place] [address] Lab Director: Jimenez Pruett MD#### MG, CBC, BMP, BNP, RICHAR ####[address] [place] [address]83 lab Director: Eder Herrera MD MCV (RBC) [Entitic vol] 89.6 fL Normal 82.6-102.9 M [facility] Comment on above: Performed By: #### I NPTH ####[place] [address] Lab Director: Jimenez Pruett MD#### MG, CBC, BMP, BNP, RICHAR ####[address] [place] 9[address]83 lab Director: Eder Herrera MD NRBC Automated 0.0 per 100 WBC Normal 0.0 [facility] Comment on above: Performed By: #### I NPTH ####[address] [address] Lab Director: Jimenez Pruett MD#### MG, CBC, BMP, BNP, RICHAR ####[address] [place], [place] 1943683 Lab Director: Eder Herrera MD Platelet mean volume (Bld) [Entitic vol] 11.6 fL Normal 8.1-13.5 [facility] Comment on above: Performed By: #### I NPTH ####[address] [place], [place] [phone] Director: Jimenez Pruett MD#### MG, CBC, BMP, BNP, RICHAR ####[address] [place], [place] 5755283 Lab Director: Eder Herrera MD Platelets (Bld) [#/Vol] 283 10*3/uL Normal 138-453 [facility] Comment on above: Performed By: #### I NPTH ####[address] [address])[phone] Director: Jimenez Pruett MD#### MG, CBC, BMP, BNP, RICHAR ####[address] [place] 9[address]6783 Lab Director: Eder Herrera MD RBC (Bld) [#/Vol] 4.62 10*6/uL Normal 4.21-5.77 [facility] Comment on above: Performed By: #### I NPTH ####[address] [phone] Director: Jimenez Pruett MD#### MG, CBC, BMP, BNP, RICHAR ####[address] [place], [place] 0694083 Lab Director: Eder Herrera MD WBC (Bld) [#/Vol] 7.3 10*3/uL Normal 3.5-11.3 [facility] Comment on above: Performed By: #### I NPTH ####[address] [place], [place] [phone] Director: Jimenez Pruett MD#### MG, CBC, BMP, BNP, RICHAR ####[facility] [place] [address] lab Director: Eder Herrera MD Magnesiumon 05-06-2024 Magnesium [Mass/Vol] 1.6 mg/dL 1.6 - 2 .4 mg/dL [facility] Magnesium [Mass/Vol] 1.6 mg/dL Normal 1.6-2.4 [facility] Comment on above: Performed By: #### I NPTH ####[facility] [address] [place] [address] Lab Director: Jimenez Pruett MD#### MG, CBC, BMP, BNP, RICHAR ####[address] [place] [address] lab Director: Eder Herrera MD No Panel Informationon 05-06 Interpretation and review of laboratory results Abnormal [facility] PTH, [place] 05-06-2024 Calcium [Moles/Vol] 1.25 mmol/L Normal 1.13-1.33 [facility] Comment on above: Performed By: #### I NPTH ####[facility] [address] [place] [address] Lab Director: Jimenez Pruett MD#### MG, CBC, BMP, BNP, RICHAR ####[address] , [place] [phone] lab Director: Eder Herrera MD Phosphoruson 05-06-2024 Phosphate [Mass/Vol] 2.1 mg/dL Low 2.5 - 4 .5 mg/dL [facility] Phosphorus, Inorg.on 024 Phosphorus, Inorg. 2.1 mg/dL Low 2.5-4.5 [facility] Comment on above: Performed By: #### I NPTH ####[facility] [address] [place], [place] [id number] Lab Director: Jimenez Pruett MD#### MG, CBC, BMP, BNP, RICHAR ####[facility] [place] [address] Lab Director: Eder Herrera MD Vascular duplex lower extrem ity arteries bilateralOrdered By: Saadia Donovan on 04-26-2024 Left ANTONELLA mid PSV 0.0 cm/s Bon [employer] Work Phone: Left RF MANAGER dist PSV 176.3 cm/s Bon [facility] [employer] Phone: Left peroneal mid PSV 104.8 cm/s Bon [employer] Phone: Left PFA prox PSV 148.4 cm/s [facility] [employer] Phone: Left Pop A dist PSV 97.0 cm/s Bon S [employer] Work Phone: Left Pop A prox PSV 101.0 cm/s Bon S [employer] Phone: Left Pop A prox karon ratio 1.38 Bon [employer] Phone: Left COOKING CHEF mid PSV 116.6 cm/s Bon [employer] Phone: Left SFA dist PSV 73.4 cm/s [facility] [employer] Phone: Left SFA dist karon ratio 0.45 B on [employer] Phone: Left SFA mid PSV 162.3 cm/s [facility] [employer] Work Phone: Left SFA mid karon ratio 0.98 Brandon n [employer] Phone: Left SFA prox PSV 165.2 cm/s Bon [facility] [employer] Phone: Left SFA prox karon ratio 0.94 B on [employer] Phone: Right ANTONELLA mid PSV 39.8 cm/s Bon [facility] [employer] Phone: Right RF MANAGER dist PSV 151.6 cm/s Bon Se [employer] Work Phone: Right RF MANAGER prox PSV 94.1 cm/s Bon Se [employer] Work Phone: Right peronal mid PSV 176.3 cm/s Bon [employer] Work Phone: Right Pop A dist PSV 170.2 cm/s Bon [employer] Work Phone: Right Pop A prox PSV 116.8 cm/s Bon [employer] Work Phone: Right Pop A prox karon ratio 0.86 Bon [employer] Work Phone: Right COOKING CHEF mid PSV 33.3 cm/s Bon Sec [employer] Work Phone: Right SFA dist PSV 135.3 cm/s Bon Se [employer] Work Phone: Right SFA dist karon ratio 1.39 Bon [employer] Work Phone: Right SFA mid PSV 97.0 cm/s Bon Sec [employer] Work Phone: Right SFA mid karon ratio 0.7 B on [employer] Phone: Right SFA prox PSV 144.4 cm/s Bon Se [employer] Work Phone: Right SFA prox karon ratio 1.0 Bon [employer] Work Phone: Bon [employer] Work Phone: Vascular duplex lower extrem ity arteries bilateralon 04-26-2024 Right: Multiphasic waveforms. Left: Multiphasic waveforms. Occluded AT. Right Lower Arterial Distal Common Femoral Artery: Patent and multiphasic (normal) Doppler waveforms. Profunda Artery: Patent and multiphasic (normal) Doppler waveforms. Superficial Femoral Artery: Patent. Proximal Superficial Femoral Artery: Multiphasic (normal) Doppler waveforms. Middle Superficial Femoral Artery: Multiphasic (normal) Doppler waveforms. Distal Superficial Femoral Artery: Multiphasic (normal) Doppler waveforms. Popliteal Artery: Patent. Proximal Popliteal Artery: Multiphasic (normal) Doppler waveforms. Distal Popliteal Artery: Multiphasic (normal) Doppler waveforms. Middle Anterior Tibial Artery: Patent and multiphasic (normal) Doppler waveforms. Middle Posterior Tibial Artery: Patent and multiphasic (normal) Doppler waveforms Middle Peroneal Artery: Patent and multiphasic (normal) Doppler waveforms. Left Lower Arterial Distal Common Femoral Artery: Patent and multiphasic (normal) Doppler waveforms. Profunda Artery: Multiphasic (normal) Doppler waveforms. . Superficial Femoral Artery: Patent. Proximal Superficial Femoral Artery: Multiphasic (normal) Doppler waveforms. Middle Superficial Femoral Artery: Multiphasic (normal) Doppler waveforms. Distal Superficial Femoral Artery: Multiphasic (normal) Doppler waveforms. Popliteal Artery: Patent. Proximal Popliteal Artery: Multiphasic (normal) Doppler waveforms. Distal Popliteal Artery: Multiphasic (normal) Doppler waveforms. Middle Anterior Tibial Artery: Occluded. Absent Doppler waveforms. Middle Posterior Tibial Artery: Patent. Distal Posterior Tibial Artery: Multiphasic (normal) Doppler waveforms. Middle Peroneal Artery: Patent and multiphasic (normal) Doppler waveforms. [facility] CV CPACS Vascular duplex lower extrem ity arteries bilateralon 04-25-2024 Radiology Study observation (narrative) [facility] CBCon 04-01-2024 Erythrocyte distribution width (RBC) [Ratio] 12.9 % 11.8 - 14.4 % [facility] Hematocrit (Bld) [Volume fraction] 41.9 % 40.7 - 50.3 % [facility] Hemoglobin (Bld) [Mass/Vol] 13.7 g/dL 13.0 - 17.0 g/dL [facility] MCH (RBC) [Entitic mass] 29.3 pg 25.2 - 33.5 pg [facility] MCHC (RBC) [Mass/Vol] 32.7 g/dL 28.4 - 34.8 g/dL [facility] MCV (RBC) [Entitic vol] 89.7 fL 82.6 - 102.9 fL [facility] Nucleated RBC/100 WBC (Bld) [Ratio] 0.0 % 0.0 per 100 WBC [facility] Platelet mean volume (Bld) [Entitic vol] 11.2 fL 8.1 - 13.5 fL [facility] Platelets (Bld) [#/Vol] 243 10*3/uL [facility] RBC (Bld) [#/Vol] 4.67 10*6/uL 4.21 - 5.7 7 m/uL [facility] WBC other (Bld) [#/Vol] 6.0 B on [facility] Erythrocyte distribution width (RBC) [Ratio] 12.9 % Normal 11.8-14.4 [facility] Comment on above: Performed By: #### P THNCA ####[address] [address] Lab Director: Jimenez Pruett MD#### URI, MG, RENP, CBC ####[address] [place] 9[address]6783 [facility] Director: Eder Herrera MD Hematocrit (Bld) [Volume fraction] 41.9 % Normal 40.7-50.3 [facility] Comment on above: Performed By: #### P THNCA ####[address] [address] Lab Director: Jimenez Pruett MD#### URI, MG, RENP, CBC ####[address] [place] 9[address]6783 Lab Director: Eder Herrera MD Hemoglobin (Bld) [Mass/Vol] 13.7 g/dL Normal 13.0-17.0 [facility] Comment on above: Performed By: #### P THNCA ####[address] [phone] Lab Director: Jimenez Pruett MD#### URI, MG, RENP, CBC ####[address] [place] 9[address]6783 Lab Director: Eder Herrera MD MCH (RBC) [Entitic mass] 29.3 pg Normal 25.2-33.5 [facility] Comment on above: Performed By: #### P THNCA ####[address] [address] Lab Director: Jimenez Pruett MD#### URI, MG, RENP, CBC ####[address] [place] [phone] lab Director: Eder Herrera MD MCHC (RBC) [Mass/Vol] 32.7 g/dL Normal 28.4-34.8 [facility] Comment on above: Performed By: #### P THNCA ####[address] [address] Lab Director: Jimenez Pruett MD#### URI, MG, RENP, CBC ####[address] [place] 9776783 Lab Director: Eder Herrera MD MCV (RBC) [Entitic vol] 89.7 fL Normal 82.6-102.9 M [facility] Comment on above: Performed By: #### P THNCA ####[address] [address] Lab Director: Jimenez Pruett MD#### URI, MG, RENP, CBC ####[address] [place] 9776783 Lab Director: Eder Herrera MD NRBC Automated 0.0 per 100 WBC Normal 0.0 [facility] Comment on above: Performed By: #### P THNCA ####[address] [address] Lab Director: Jimenez Pruett MD#### URI, MG, RENP, CBC ####[address] [place], [place] 7576783 Lab Director: Eder Herrera MD Platelet mean volume (Bld) [Entitic vol] 11.2 fL Normal 8.1-13.5 [facility] Comment on above: Performed By: #### P THNCA ####[address] [place], [place] [phone] Director: Jimenez Pruett MD#### URI, MG, RENP, CBC ####[address] [place], [place] 7694083 Lab Director: Eder Herrera MD Platelets (Bld) [#/Vol] 243 10*3/uL Normal 138-453 [facility] Comment on above: Performed By: #### P THNCA ####[address] [phone] Director: Jimenez Pruett MD#### URI, MG, RENP, CBC ####[address] [place] [address] Lab Director: Eder Herrera MD RBC (Bld) [#/Vol] 4.67 10*6/uL Normal 4.21-5.77 [facility] Comment on above: Performed By: #### P THNCA ####[address] [place], [place] [phone] Director: Jimenez Pruett MD#### URI, MG, RENP, CBC ####[address] [place], [place] 1851783 Lab Director: Eder Herrera MD WBC (Bld) [#/Vol] 6.0 10*3/uL Normal 3.5-11.3 [facility] Comment on above: Performed By: #### P THNCA ####[address] [place], [place] [phone] Director: Jimenez Pruett MD#### URI, MG, RENP, CBC ####[facility] [place] [address] Lab Director: Eder Herrera MD Magnesiumon 04-01-2024 Magnesium [Mass/Vol] 1.6 mg/dL 1.6 - 2 .4 mg/dL [facility] Magnesium [Mass/Vol] 1.6 mg/dL Normal 1.6-2.4 [facility] Comment on above: Performed By: #### P THNCA ####[facility] [place], [place] 3979308 Lab Director: Jimenez Pruett MD#### URI, MG, RENP, CBC ####[facility] [place] [address] Lab Director: Eder Herrera MD No Panel Informationon 04-01 Interpretation and review of laboratory results Abnormal [facility] PTH, [place] 04-01-2024 Interpretation and review of laboratory results Abnormal [facility] Parathyrin.intact [Mass/Vol] 206.0 pg/mL High 15 - 65 pg/mL [facility] PTH, Intact 206.0 pg/mL High 15-65 [facility] Comment on above: Performed By: #### P THNCA ####[address] [place] [address] Lab Director: Jimenez Pruett MD#### URI, MG, RENP, CBC ####[facility] [place] [address] Lab Director: Eder Herrera MD Renal Function Panelon 04-01 Albumin [Mass/Vol] 4.2 g/dL 3.5 - 5.2 g/dL [facility] Anion gap [Moles/Vol] 11 mmol/L 9 - 16 mmol/L [facility] Calcium [Mass/Vol] 11.0 mg/dL High 8.6 - 10. 4 mg/dL [facility] Chloride [Moles/Vol] 98 mmol/L 98 - 10 7 mmol/L [facility] CO2 [Moles/Vol] 27 mmol/L 20 - 31 mmol/L [facility] Creatinine [Mass/Vol] 1.6 mg/dL High 0.70 - 1.20 mg/dL [facility] Est, [place] Filt Rate 47 Low - PINF [facility] Comment on above: These results are not intended for use in patients <18 years of age. eGFR results are calculated without a race factor using the 2020 CKD-EPI equation. Careful clinical correlation is recommended, particularly when comparing to results calculated using previous equations. The CKD-EPI equation is less accurate in patients with extremes of muscle mass, extra-renal metabolism of creatine, excessive creatine ingestion, or following therapy that affects renal tubular secretion. Glucose [Mass/Vol] 195 mg/dL High 74 - 99 mg/dL [facility] Phosphate [Mass/Vol] 1.8 mg/dL Low 2.5 - 4 .5 mg/dL [facility] Potassium [Moles/Vol] 3.7 mmol/L 3.7 - 5.3 mmol/L [facility] Sodium [Moles/Vol] 136 mmol/L 136 - 145 mmol/L [facility] Urea nitrogen [Mass/Vol] 36 mg/dL High 8 - 23 mg/dL [facility] Urea nitrogen/Creatinine [Mass ratio] 23 mg/mg High 9 - 20 [facility] Albumin [Mass/Vol] 4.2 g/dL Normal 3.5-5.2 [facility] Comment on above: Performed By: #### P THNCA ####[facility] [address] [place] [address] Lab Director: Jimenez Pruett MD#### GEORGINA, MG, VALARIE, CBC ####[facility] [place] [address] Lab Director: Eder Herrera MD Anion gap [Moles/Vol] 11 mmol/L Normal 9-16 [facility] Comment on above: Performed By: #### P THNCA ####[address] [address] Lab Director: Jimenez Pruett MD#### URI, MG, RENP, CBC ####[address] , [place] [id number] Lab Director: Eder Herrera MD BUN/CRE Ratio 23 High 9-20 [facility] Comment on above: Performed By: #### P THNCA ####[address] [phone] Director: Jimenez Pruett MD#### URI, MG, RENP, CBC ####[address] [place] [address] Lab Director: Eder Herrera MD Calcium [Mass/Vol] 11.0 mg/dL High 8.6-10.4 [facility] Comment on above: Performed By: #### P THNCA ####[address] [address] Lab Director: Jimenez Pruett MD#### URI, MG, RENP, CBC ####[address] [place] [address] Lab Director: Eder Herrera MD Chloride [Moles/Vol] 98 mmol/L Normal 98-107 [facility] Comment on above: Performed By: #### P THNCA ####[address] [phone] Director: Jimenez Pruett MD#### URI, MG, RENP, CBC ####[address] [place], [place] 0471083 Lab Director: Eder Herrera MD CO2 [Moles/Vol] 27 mmol/L Normal 20-31 [facility] Comment on above: Performed By: #### P THNCA ####[facility] [address] [place] [address] Lab Director: Jimenez Pruett MD#### URI, MG, RENP, CBC ####[address] [place], [place] [id number] Lab Director: Eder Herrera MD Creatinine [Mass/Vol] 1.6 mg/dL High 0.70-1.20 [facility] Comment on above: Performed By: #### P THNCA ####[facility] [address] [place] [address] Lab Director: Jimenez Pruett MD#### URI, MG, RENP, CBC ####[address] [place], [place] [id number] Lab Director: Eder Herrera MD GFR/1.73 sq M.predicted among non-blacks MDRD (S/P/Bld) [Vol rate/Area] 47 mL/min/{1.73_m2} Low >60 [facility] Comment on above: Result Comment: Thes e results are not intended for use in patients <18 years of age.eGFR results are calculated without a race factor using the 2020 CKD-EPI equation.Careful clinical correlation is recommended, particularly when comparing to results calculated using previous equations.The CKD-EPI equation is less accurate in patients with extremes of muscle mass, extra-renal metabolism of creatine, excessive creatine ingestion, or following therapy that affects renal tubular secretion. Performed By: #### P THNCA ####[facility] [address] [place] [address] Lab Director: Jimenez Pruett MD#### URI, MG, RENP, CBC ####[address] [place], [place] [phone] Lab Director: Eder Herrera MD Glucose [Mass/Vol] 195 mg/dL High 74-99 [facility] Comment on above: Performed By: #### P THNCA ####[address] [place] [address] Lab Director: Jimenez Pruett MD#### URI, MG, RENP, CBC ####[address] [place], [place] [id number] Lab Director: Eder Herrera MD Phosphorus, Inorg. 1.8 mg/dL Low 2.5-4.5 [facility] Comment on above: Performed By: #### P THNCA ####[address] [address] Lab Director: Jimenez Pruett MD#### URI, MG, RENP, CBC ####[address] [place], [place] [id number] Lab Director: Eder Herrera MD Potassium [Moles/Vol] 3.7 mmol/L Normal 3.7-5.3 [facility] Comment on above: Performed By: #### P THNCA ####[address] [address] Lab Director: Jimenez Pruett MD#### URI, MG, RENP, CBC ####[address] [place], [place] [address] Lab Director: Eder Herrera MD Sodium [Moles/Vol] 136 mmol/L Normal 136-145 [facility] Comment on above: Performed By: #### P THNCA ####[address] [address] Lab Director: Jimenez Pruett MD#### URI, MG, RENP, CBC ####[address] [place], [place] [address] Lab Director: Eder Herrera MD Urea nitrogen [Mass/Vol] 36 mg/dL High 8-23 [facility] Comment on above: Performed By: #### P THNCA ####[facility] [address] [place] [address] Lab Director: Jimenez Pruett MD#### URI, MG, RENP, CBC ####[address] [place], [place] [id number] lab Director: Eder Herrera MD Uric Acidon 04-01-2024 Urate [Mass/Vol] 7.6 mg/dL High 3.4 - 7.0 mg/dL [facility] Urate [Mass/Vol] 7.6 mg/dL High 3.4-7.0 [facility] Comment on above: Performed By: #### P THNCA ####[facility] [place] [address] lab Director: Jimenez Pruett MD#### URI, MG, RENP, CBC ####[address] [place] [address] lab Director: Eder Herrera MD Basic Metabolic Panelon 02-23 Anion gap [Moles/Vol] 9 mmol/L 9 - 16 mmol/L [facility] Calcium [Mass/Vol] 10.5 mg/dL High 8.6 - 10. 4 mg/dL [facility] Chloride [Moles/Vol] 106 mmol/L 98 - 10 7 mmol/L [facility] CO2 [Moles/Vol] 24 mmol/L 20 - 31 mmol/L [facility] Creatinine [Mass/Vol] 1.4 mg/dL High 0.70 - 1.20 mg/dL [facility] Est, Glom Filt Rate 54 Low - PINF [facility] Comment on above: These results are not intended for use in patients <18 years of age. eGFR results are calculated without a race factor using the 2020 CKD-EPI equation. Careful clinical correlation is recommended, particularly when comparing to results calculated using previous equations. The CKD-EPI equation is less accurate in patients with extremes of muscle mass, extra-renal metabolism of creatine, excessive creatine ingestion, or following therapy that affects renal tubular secretion. Glucose [Mass/Vol] 106 mg/dL High 74 - 99 mg/dL [facility] Potassium [Moles/Vol] 4.9 mmol/L 3.7 - 5.3 mmol/L [facility] Comment on above: Specimen hemolysis h as exceeded the interference as defined by Cyndi. Value may be falsely increased. Suggest recollection if clinically indicated. Sodium [Moles/Vol] 139 mmol/L 136 - 145 mmol/L [facility] Urea nitrogen [Mass/Vol] 24 mg/dL High 8 - 23 mg/dL [facility] Urea nitrogen/Creatinine [Mass ratio] 17 mg/mg 9 - [facility] Basic Metabolic Profon 03-15 Anion gap [Moles/Vol] 9 mmol/L Normal - [facility] Comment on above: Performed By: #### C BC, BMP, BNP ####[address] [place] [address] Lab Director: Eder Herrera MD BUN/CRE Ratio 17 Normal - [facility] Comment on above: Performed By: #### C BC, BMP, BNP ####[address] , [place] [id number] lab Director: Eder Herrera MD Calcium [Mass/Vol] 10.5 mg/dL High 8.6-10.4 [facility] Comment on above: Performed By: #### C BC, BMP, BNP ####[address] , [place] [id number] lab Director: Eder Herrera MD Chloride [Moles/Vol] 106 mmol/L Normal 98-107 [facility] Comment on above: Performed By: #### C BC, BMP, BNP ####[address] [place] [address] lab Director: Eder Herrera MD CO2 [Moles/Vol] 24 mmol/L Normal 20- [facility] Comment on above: Performed By: #### C BC, BMP, BNP ####[address] [place], [place] [address] lab Director: Eder Herrera MD Creatinine [Mass/Vol] 1.4 mg/dL High 0.70-1.20 [facility] Comment on above: Performed By: #### C BC, BMP, BNP ####[address] [place], [place] [address]83 lab Director: Eder Herrera MD GFR/1.73 sq M.predicted among non-blacks MDRD (S/P/Bld) [Vol rate/Area] 54 mL/min/{1.73_m2} Low >60 [facility] Comment on above: Result Comment: Thes e results are not intended for use in patients <18 years of age.eGFR results are calculated without a race factor using the 2020 CKD-EPI equation.Careful clinical correlation is recommended, particularly when comparing to results calculated using previous equations.The CKD-EPI equation is less accurate in patients with extremes of muscle mass, extra-renal metabolism of creatine, excessive creatine ingestion, or following therapy that affects renal tubular secretion. Performed By: #### C KILLIAN BMP, BNP ####[address] [place] [address] lab Director: Eder Herrera MD Glucose [Mass/Vol] 106 mg/dL High 74-99 [facility] Comment on above: Performed By: #### C BC BMP, BNP ####[address] [place], [place] [address] lab Director: Eder Herrera MD Potassium [Moles/Vol] 4.9 mmol/L Normal 3.7-5.3 [facility] Comment on above: Result Comment: Spec imen hemolysis has exceeded the interference as defined by Cyndi. Value may be falsely increased. Suggest recollection if clinically indicated. Performed By: #### C BC, BMP, BNP ####[address] [place] [address] lab Director: Eder Herrera MD Sodium [Moles/Vol] 139 mmol/L Normal 136-145 [facility] Comment on above: Performed By: #### C BC, BMP, BNP ####[facility] [place] , [place] [id number] lab Director: Eder Hererra MD Urea nitrogen [Mass/Vol] 24 mg/dL High 8-23 [facility] Comment on above: Performed By: #### C BC, BMP, BNP ####[facility] [place] , [place] [id number] lab Director: Eder Herrera MD Brain Natri. Peptideon 03-15 Natriuretic peptide B (Bld) [Mass/Vol] 422 pg/mL High 0-125 [facility] Comment on above: Performed By: #### C KILLIAN, BMP, BNP ####[address] , [place] [id number] Lab Director: Eder Herrera MD Brain Natriuretic Peptideon 03-15-2024 Natriuretic peptide B (Bld) [Mass/Vol] 422 pg/mL High 0 - 125 pg/mL [facility] CBCon 03-15-2024 Erythrocyte distribution width (RBC) [Ratio] 13.2 % 11.8 - 14.4 % [facility] Hematocrit (Bld) [Volume fraction] 41.4 % 40.7 - 50.3 % [facility] Hemoglobin (Bld) [Mass/Vol] 13.1 g/dL 13.0 - 17.0 g/dL [facility] MCH (RBC) [Entitic mass] 29.2 pg 25.2 - 33.5 pg [facility] MCHC (RBC) [Mass/Vol] 31.6 g/dL 28.4 - 34.8 g/dL [facility] MCV (RBC) [Entitic vol] 92.2 fL 82.6 - 102.9 fL [facility] Nucleated RBC/100 WBC (Bld) [Ratio] 0.0 % 0.0 per 100 WBC [facility] Platelet mean volume (Bld) [Entitic vol] 10.9 fL 8.1 - 13.5 fL [facility] Platelets (Bld) [#/Vol] 268 10*3/uL [facility] RBC (Bld) [#/Vol] 4.49 10*6/uL 4.21 - 5.7 7 m/uL [facility] WBC other (Bld) [#/Vol] 5.0 B on [facility] Erythrocyte distribution width (RBC) [Ratio] 13.2 % Normal 11.8-14.4 [facility] Comment on above: Performed By: #### C BC, BMP, BNP ####[address] [place] [address] lab Director: Eder Herrera MD Hematocrit (Bld) [Volume fraction] 41.4 % Normal 40.7-50.3 [facility] Comment on above: Performed By: #### C BC BMP, BNP ####[address] [place] [address] Lab Director: Eder Herrera MD Hemoglobin (Bld) [Mass/Vol] 13.1 g/dL Normal 13.0-17.0 [facility] Comment on above: Performed By: #### C BC, BMP, BNP ####[address] [place] [address] lab Director: Eder Herrera MD MCH (RBC) [Entitic mass] 29.2 pg Normal 25.2-33.5 [facility] Comment on above: Performed By: #### C BC, BMP, BNP ####[address] [place] [address] lab Director: Eder Herrera MD MCHC (RBC) [Mass/Vol] 31.6 g/dL Normal 28.4-34.8 [facility] Comment on above: Performed By: #### C BC, BMP, BNP ####[address] [place] [address] Lab Director: Eder Herrera MD MCV (RBC) [Entitic vol] 92.2 fL Normal 82.6-102.9 M [facility] Comment on above: Performed By: #### C BC, BMP, BNP ####[address] [place] [address] Lab Director: Eder Herrera MD NRBC Automated 0.0 per 100 WBC Normal 0.0 [facility] Comment on above: Performed By: #### C BC, BMP, BNP ####[address] [place] [address] Lab Director: Eder Herrera MD Platelet mean volume (Bld) [Entitic vol] 10.9 fL Normal 8.1-13.5 [facility] Comment on above: Performed By: #### C BC, BMP, BNP ####[address] [place] [address] Lab Director: Eder Herrera MD Platelets (Bld) [#/Vol] 268 10*3/uL Normal 138-453 [facility] Comment on above: Performed By: #### C BC, BMP, BNP ####[address] [place] [address] Lab Director: Eder Herrera MD RBC (Bld) [#/Vol] 4.49 10*6/uL Normal 4.21-5.77 [facility] Comment on above: Performed By: #### C BC, BMP, BNP ####[address] [place] [address] Lab Director: Eder Herrera MD WBC (Bld) [#/Vol] 5.0 10*3/uL Normal 3.5-11.3 [facility] Comment on above: Performed By: #### C BC, BMP, BNP ####[address] [place] [address] lab Director: Eder Herrera MD No Panel Informationon 03-15 Interpretation and review of laboratory results Abnormal [facility] Bon [facility] Trice 03-08-2024 ACT 274 sec High 79-149 [facility] ACT 253 sec High 79-149 [facility] ACT 174 sec High 79-149 [facility] Glucose, Whole Bloodon 03-08 Glucose [Mass/Vol] 148 mg/dL High 74-100 [facility] Glucose [Mass/Vol] 138 mg/dL High 74-100 [facility] CBC with Auto Differentialon 02-28-2024 Basophils (Bld) [#/Vol] 0.04 10*3/uL [facility] Basophils/100 WBC (Bld) 1 % 0 - 2 % B ON [facility] Eosinophils (Bld) [#/Vol] 0.39 10*3/uL [facility] Eosinophils/100 WBC (Bld) 5 % High 1 - 4 % [facility] Erythrocyte distribution width (RBC) [Ratio] 12.3 % 11.8 - 14.4 % [facility] Hematocrit (Bld) [Volume fraction] 37.1 % Low 40.7 - 50.3 % [facility] Hemoglobin (Bld) [Mass/Vol] 12.7 g/dL Low 13.0 - 17.0 g/dL [facility] Immature granulocytes (Bld) [#/Vol] [facility] Immature granulocytes/100 WBC (Bld) 0 % 0 [facility] Interpretation and review of laboratory results Abnormal [facility] Lymphocytes/100 WBC (Bld) 32 % 24 - 43 % [facility] Lymphocytes/100 WBC (Bld) 2.31 % [facility] MCH (RBC) [Entitic mass] 29.5 pg 25.2 - 33.5 pg [facility] MCHC (RBC) [Mass/Vol] 34.2 g/dL 28.4 - 34.8 g/dL [facility] MCV (RBC) [Entitic vol] 86.3 fL 82.6 - 102.9 fL [facility] Monocytes/100 WBC (Bld) 10 % 3 - 12 % B ON [facility] Monocytes/100 WBC (Bld) 0.76 % B ON [facility] Neutrophils/100 WBC (Bld) 52 % 36 - 65 % [facility] Nucleated RBC/100 WBC (Bld) [Ratio] 0.0 % 0.0 per 100 WBC [facility] Platelet mean volume (Bld) [Entitic vol] 10.9 fL 8.1 - 13.5 fL [facility] Platelets (Bld) [#/Vol] 248 10*3/uL [facility] RBC (Bld) [#/Vol] 4.30 10*6/uL 4.21 - 5.7 7 m/uL [facility] Segmented neutrophils/100 WBC (Bld) 3.78 % [facility] WBC other (Bld) [#/Vol] 7.3 B ON [facility] CBC with Diffon 02-28-2024 Abs. Basophil 0.04 k/uL Normal 0.00-0.20 [facility] Comment on above: Performed By: #### C CHLOÉ PECK, SUSANAE ####[address] [place] [id number] Lab Director: Eder Herrera MD Abs.Imm.Granulocyte <0.03 Normal 0.00-0.30 [facility] Comment on above: Performed By: #### C CHLOÉ PECK, DIME ####[address] [place], [place] [address] Lab Director: Eder Herrera MD Abs.Neutrophil (Seg) 3.78 k/uL Normal 1.50-8.10 [facility] Comment on above: Performed By: #### C CHLOÉ PECK, DIME ####[address] , [place] [id number] Lab Director: Eder Herrera MD Basophils/100 WBC (Bld) 1 % Normal 0-2 M [facility] Comment on above: Performed By: #### C DP CP, DIME ####[address] [place] [address] Lab Director: Eder Herrera MD Eosinophils (Bld) [#/Vol] 0.39 10*3/uL Normal 0.00-0.44 [facility] Comment on above: Performed By: #### C DP CP, DIME ####[address] , [facility]83 Lab Director: Eder Herrera MD Eosinophils/100 WBC (Bld) 5 % High 1-4 [facility] Comment on above: Performed By: #### C CISCO CP, DIME ####[address] , [facility]83 Lab Director: Eder Herrera MD Erythrocyte distribution width (RBC) [Ratio] 12.3 % Normal 11.8-14.4 [facility] Comment on above: Performed By: #### C CISCO CP, DIME ####[address] , [place] [address] Lab Director: Eder Herrera MD Hematocrit (Bld) [Volume fraction] 37.1 % Low 40.7-50.3 [facility] Comment on above: Performed By: #### C CISCO CP, DIME ####[address] , [facility]83 Lab Director: Eder Herrera MD Hemoglobin (Bld) [Mass/Vol] 12.7 g/dL Low 13.0-17.0 [facility] Comment on above: Performed By: #### C DP CP, DIME ####[address] , [place] [id number] Lab Director: Eder Herrera MD Immature granulocytes/100 WBC (Bld) 0 % Normal 0 [facility] Comment on above: Performed By: #### C DP CP, DIME ####[address] , [place] [phone] Director: Eder Hererra MD Lymphocytes (Bld) [#/Vol] 2.31 10*3/uL Normal 1.10-3.70 [facility] Comment on above: Performed By: #### C CHLOÉ PECK, DIME ####[address] , [place] [phone] Director: Eder Herrera MD Lymphocytes/100 WBC (Bld) 32 % Normal 24-43 [facility] Comment on above: Performed By: #### C CHLOÉ PECK, DIME ####[address] , [place] [phone] Director: Eder Herrera MD MCH (RBC) [Entitic mass] 29.5 pg Normal 25.2-33.5 [facility] Comment on above: Performed By: #### C CHLOÉ PECK, DIME ####[address] , [place] [address])[phone] Director: Eder Herrera MD MCHC (RBC) [Mass/Vol] 34.2 g/dL Normal 28.4-34.8 [facility] Comment on above: Performed By: #### C CHLOÉ PECK, DIME ####[address] , [place] [address])[phone] Director: Eder Herrera MD MCV (RBC) [Entitic vol] 86.3 fL Normal 82.6-102.9 M [facility] Comment on above: Performed By: #### C CHLOÉ PECK, DIME ####[address] [place] [address] Lab Director: Eder Herrera MD Monocytes (Bld) [#/Vol] 0.76 10*3/uL Normal 0.10-1.20 [facility] Comment on above: Performed By: #### C DP, CP, DIME ####[address] [place] [address] Lab Director: Eder Herrera MD Monocytes/100 WBC (Bld) 10 % Normal 3-12 M [facility] Comment on above: Performed By: #### C DP, CP, DIME ####[address] , [place] [address])[phone] Director: Eder Herrera MD Neutrophil (Seg) 52 % Normal 36-65 [facility] Comment on above: Performed By: #### C DP CP, DIME ####[address] , [facility]83 Lab Director: Eder Herrera MD NRBC Automated 0.0 per 100 WBC Normal 0.0 [facility] Comment on above: Performed By: #### C DP CP, DIME ####[address] , [phone] Director: Eder Herrera MD Platelet mean volume (Bld) [Entitic vol] 10.9 fL Normal 8.1-13.5 [facility] Comment on above: Performed By: #### C DP CP, DIME ####[address] , [place] [address])[phone] Director: Eder Herrera MD Platelets (Bld) [#/Vol] 248 10*3/uL Normal 138-453 [facility] Comment on above: Performed By: #### C DP, CP, DIME ####[address] , [place] [phone] Director: Eder Herrera MD RBC (Bld) [#/Vol] 4.30 10*6/uL Normal 4.21-5.77 [facility] Comment on above: Performed By: #### C DP, CP, DIME ####[facility] [place] [address] lab Director: Eder Herrera MD WBC (Bld) [#/Vol] 7.3 10*3/uL Normal 3.5-11.3 [facility] Comment on above: Performed By: #### C DP, CHLOÉ, SUSANAE ####[facility] [place] [address] lab Director: Eder Herrera MD [facility] Albumin [Mass/Vol] 3.6 g/dL 3.5 - 5.2 g/dL [facility] Albumin/Globulin [Mass ratio] 1.3 {ratio} 1.0 - 2.5 [facility] ALP [Catalytic activity/Vol] 90 U/L 40 - 129 U/L [facility] ALT [Catalytic activity/Vol] 21 U/L 10 - 50 U/L [facility] Anion gap [Moles/Vol] 13 mmol/L 9 - 16 mmol/L [facility] AST [Catalytic activity/Vol] 22 U/L 10 - 50 U/L [facility] Bilirubin [Mass/Vol] 0.3 mg/dL 0.00 - 1.20 mg/dL [facility] Calcium [Mass/Vol] 9.1 mg/dL 8.6 - 10. 4 mg/dL [facility] Chloride [Moles/Vol] 99 mmol/L 98 - 10 7 mmol/L [facility] CO2 [Moles/Vol] 23 mmol/L 20 - 31 mmol/L [facility] Creatinine [Mass/Vol] 1.8 mg/dL High 0.70 - 1.20 mg/dL [facility] Est, Glom Filt Rate 41 Low - PINF [facility] Comment on above: These results are not intended for use in patients <18 years of age. eGFR results are calculated without a race factor using the 2020 CKD-EPI equation. Careful clinical correlation is recommended, particularly when comparing to results calculated using previous equations. The CKD-EPI equation is less accurate in patients with extremes of muscle mass, extra-renal metabolism of creatine, excessive creatine ingestion, or following therapy that affects renal tubular secretion. Glucose [Mass/Vol] 118 mg/dL High 74 - 99 mg/dL [facility] Interpretation and review of laboratory results Abnormal [facility] Potassium [Moles/Vol] 4.1 mmol/L 3.7 - 5.3 mmol/L [facility] Protein [Mass/Vol] 6.2 g/dL Low 6.6 - 8.7 g/dL [facility] Sodium [Moles/Vol] 135 mmol/L Low 136 - 145 mmol/L [facility] Urea nitrogen [Mass/Vol] 55 mg/dL High 8 - 23 mg/dL [facility] Urea nitrogen/Creatinine [Mass ratio] 31 mg/mg High 9 - 20 [facility] Comp Metabolic Profon 2023 Albumin [Mass/Vol] 3.6 g/dL Normal 3.5-5.2 [facility] Comment on above: Performed By: #### C CHLOÉ PECK, DIME ####[address] , [place] [id number] Lab Director: Eder Herrera MD Albumin/Glob Ratio 1.3 Normal 1.0-2.5 [facility] Comment on above: Performed By: #### C CHLOÉ PECK, DIME ####[address] , [place] [phone] Lab Director: Eder Herrera MD Alkaline Phos 90 U/L Normal 40-129 [facility] Comment on above: Performed By: #### C CHLOÉ PECK, DIME ####[facility] [place] , [place] [phone] Lab Director: Eder Herrera MD ALT [Catalytic activity/Vol] 21 U/L Normal 10-50 [facility] Comment on above: Performed By: #### C CHLOÉ PECK, DIME ####[facility] [place] , [place] [phone] Lab Director: Eder Herrera MD Anion gap [Moles/Vol] 13 mmol/L Normal 9-16 [facility] Comment on above: Performed By: #### C CHLOÉ PECK, DIME ####[address] [place] [address] Lab Director: Eder Herrera MD AST [Catalytic activity/Vol] 22 U/L Normal 10-50 [facility] Comment on above: Performed By: #### C CHLOÉ PECK, DIME ####[address] [place] [address] Lab Director: Eder Herrera MD Bilirubin [Mass/Vol] 0.3 mg/dL Normal 0.00-1.20 [facility] Comment on above: Performed By: #### C CHLOÉ PECK, DIME ####[address] [place] [address] Lab Director: Eder Herrera MD BUN/CRE Ratio 31 High 9-20 [facility] Comment on above: Performed By: #### C CHLOÉ PECK, DIME ####[address] [place] [address] Lab Director: Eder Herrera MD Calcium [Mass/Vol] 9.1 mg/dL Normal 8.6-10.4 [facility] Comment on above: Performed By: #### C CHLOÉ PECK, DIME ####[address] [place] [address] Lab Director: Eder Herrera MD Chloride [Moles/Vol] 99 mmol/L Normal 98-107 [facility] Comment on above: Performed By: #### C CHLOÉ PECK, DIME ####[address] , [place] 332[address]83 Lab Director: Eder Herrera MD CO2 [Moles/Vol] 23 mmol/L Normal 20-31 [facility] Comment on above: Performed By: #### C CHLOÉ PECK, DIME ####[address] [place] [address] Lab Director: Eder Herrera MD Creatinine [Mass/Vol] 1.8 mg/dL High 0.70-1.20 [facility] Comment on above: Performed By: #### C CHLOÉ PECK, DIME ####[address] , [place] [id number] Lab Director: Eder Herrera MD GFR/1.73 sq M.predicted among non-blacks MDRD (S/P/Bld) [Vol rate/Area] 41 mL/min/{1.73_m2} Low >60 [facility] Comment on above: Result Comment: Thes e results are not intended for use in patients <18 years of age.eGFR results are calculated without a race factor using the 2020 CKD-EPI equation.Careful clinical correlation is recommended, particularly when comparing to results calculated using previous equations.The CKD-EPI equation is less accurate in patients with extremes of muscle mass, extra-renal metabolism of creatine, excessive creatine ingestion, or following therapy that affects renal tubular secretion. Performed By: #### C CHLOÉ PECK, DIME ####[address] , [place] [id number] Lab Director: Eder Herrera MD Glucose [Mass/Vol] 118 mg/dL High 74-99 [facility] Comment on above: Performed By: #### C CHLOÉ PECK, DIME ####[address] [place] [address] Lab Director: Eder Herrera MD Potassium [Moles/Vol] 4.1 mmol/L Normal 3.7-5.3 [facility] Comment on above: Performed By: #### C CHLOÉ PECK, DIME ####[address] , [place] [phone] Lab Director: Eder Herrera MD Protein [Mass/Vol] 6.2 g/dL Low 6.6-8.7 [facility] Comment on above: Performed By: #### C DP CP, DIME ####[facility] [place] [address] lab Director: Eder Herrera MD Sodium [Moles/Vol] 135 mmol/L Low 136-145 [facility] Comment on above: Performed By: #### C DP CP, DIME ####[facility] [place] [address] lab Director: Eder Herrera MD Urea nitrogen [Mass/Vol] 55 mg/dL High 8-23 [facility] Comment on above: Performed By: #### C CHLOÉ PECK, DIME ####[address] [place] [address] lab Director: Eder Herrera MD D-Dimer Teston 02-28-2024 D-Dimer Test 0.43 ug/mL FEU Normal 0.00-0.59 [facility] Comment on above: Result Comment: When combined with a low clinical probability, a D dimer value of <0.50 ug/mL FEU is considered negative for DVT and PE (negative predictive value of 98%, sensitivity of 97%).If this test is not being used to help rule out DVT and PE, then the following reference range should be utilized: 0.00 - 0.59 ug/mL FEU.The D-Dimer assay is intended for use as an aid in the diagnosis of venous thromboembolism (DVT and PE) and the results should be interpreted in conjunction with the patient's medical history, clinical presentation, and other findings.Elevated levels of D-dimer activity can be seen in any state of coagulation activation and is not recommended in patients with therapeutic dose anticoagulant therapy for >24 hours, fibrinolytic therapy within the previous 7 days, trauma or surgery within the previous 4 weeks, disseminated malignancies, aortic aneurysm, sepsis, severe infections, pneumonia, severe skin infections, liver cirrhosis, advanced age, coronary disease, diabetes, and .A very low percentage of patients with DVT may yield D-dimer results below the cutoff of 0.5 ug/mL FEU. This is known to be more prevalent in patients with distal DVT. Performed By: #### C DP, CHLOÉ, CATHY ####[facility] [place] [address] Lab Director: Eder eHrrera MD D-Dimer, Quantitativeon 10- Fibrin D-dimer FEU (PPP) [Mass/Vol] 0.43 [facility] Comment on above: When combined with a low clinical probability, a D dimer value of <0.50 ug/mL FEU is considered negative for DVT and PE (negative predictive value of 98%, sensitivity of 97%). If this test is not being used to help rule out DVT and PE, then the following reference range should be utilized: 0.00 - 0.59 ug/mL FEU. The D-Dimer assay is intended for use as an aid in the diagnosis of venous thromboembolism (DVT and PE) and the results should be interpreted in conjunction with the patient's medical history, clinical presentation, and other findings. Elevated levels of D-dimer activity can be seen in any state of coagulation activation and is not recommended in patients with therapeutic dose anticoagulant therapy for >24 hours, fibrinolytic therapy within the previous 7 days, trauma or surgery within the previous 4 weeks, disseminated malignancies, aortic aneurysm, sepsis, severe infections, pneumonia, severe skin infections, liver cirrhosis, advanced age, coronary disease, diabetes, and . A very low percentage of patients with DVT may yield D-dimer results below the cutoff of 0.5 ug/mL FEU. This is known to be more prevalent in patients with distal DVT. [facility] Basic Metab w/rfx MGon 02-26 Anion gap [Moles/Vol] 11 mmol/L Normal 9-16 [facility] Comment on above: Performed By: #### B MPX, CDP ####[facility] [place] [address] lab Director: Eder Herrera MD BUN/CRE Ratio 27 High 9-20 [facility] Comment on above: Performed By: #### B MPX, CDP ####[facility] [place], [place] [id number] Lab Director: Eder Herrera MD Calcium [Mass/Vol] 8.8 mg/dL Normal 8.6-10.4 [facility] Comment on above: Performed By: #### B MPX, CDP ####[address] , [place] [id number] Lab Director: Eder Herrera MD Chloride [Moles/Vol] 99 mmol/L Normal 98-107 [facility] Comment on above: Performed By: #### B MPX, CDP ####[address] , [place] [phone] Lab Director: Eder Herrera MD CO2 [Moles/Vol] 25 mmol/L Normal 20-31 [facility] Comment on above: Performed By: #### B MPX, CDP ####[address] , [place] [phone] Lab Director: Eder Herrera MD Creatinine [Mass/Vol] 2.1 mg/dL High 0.70-1.20 [facility] Comment on above: Performed By: #### B MPX, CDP ####[address] , [place] [phone] Lab Director: Eder Herrera MD GFR/1.73 sq M.predicted among non-blacks MDRD (S/P/Bld) [Vol rate/Area] 35 mL/min/{1.73_m2} Low >60 [facility] Comment on above: Result Comment: Thes e results are not intended for use in patients <18 years of age.eGFR results are calculated without a race factor using the 2020 CKD-EPI equation.Careful clinical correlation is recommended, particularly when comparing to results calculated using previous equations.The CKD-EPI equation is less accurate in patients with extremes of muscle mass, extra-renal metabolism of creatine, excessive creatine ingestion, or following therapy that affects renal tubular secretion. Performed By: #### B MPX, CDP ####[address] [place] [address] Lab Director: Eder Herrera MD Glucose [Mass/Vol] 221 mg/dL High 74-99 [facility] Comment on above: Performed By: #### B MPX, CDP ####[facility] [place] , [place] [phone] lab Director: Eder Herrera MD Potassium [Moles/Vol] 4.0 mmol/L Normal 3.7-5.3 [facility] Comment on above: Performed By: #### B MPX, CDP ####[facility] [place] , [place] [phone] lab Director: Eder Herrera MD Sodium [Moles/Vol] 135 mmol/L Low 136-145 [facility] Comment on above: Performed By: #### B MPX, CDP ####[facility] [place] , [place] [id number] lab Director: Eder Herrera MD Urea nitrogen [Mass/Vol] 57 mg/dL High 8-23 [facility] Comment on above: Performed By: #### B MPX, CDP ####[facility] [place] [address] [place] , [place] [phone] lab Director: Eder Herrera MD Basic Metabolic Panel w/ Ref willam to MGon 02-27-2024 Anion gap [Moles/Vol] 11 mmol/L 9 - 16 mmol/L [facility] Calcium [Mass/Vol] 8.8 mg/dL 8.6 - 10. 4 mg/dL [facility] Chloride [Moles/Vol] 99 mmol/L 98 - 10 7 mmol/L [facility] CO2 [Moles/Vol] 25 mmol/L 20 - 31 mmol/L [facility] Creatinine [Mass/Vol] 2.1 mg/dL High 0.70 - 1.20 mg/dL [facility] Est, Glom Filt Rate 35 Low - [facility] Comment on above: These results are not intended for use in patients <18 years of age. eGFR results are calculated without a race factor using the 2020 CKD-EPI equation. Careful clinical correlation is recommended, particularly when comparing to results calculated using previous equations. The CKD-EPI equation is less accurate in patients with extremes of muscle mass, extra-renal metabolism of creatine, excessive creatine ingestion, or following therapy that affects renal tubular secretion. Glucose [Mass/Vol] 221 mg/dL High 74 - 99 mg/dL [facility] Interpretation and review of laboratory results Abnormal [facility] Potassium [Moles/Vol] 4.0 mmol/L 3.7 - 5.3 mmol/L [facility] Sodium [Moles/Vol] 135 mmol/L Low 136 - 145 mmol/L [facility] Urea nitrogen [Mass/Vol] 57 mg/dL High 8 - 23 mg/dL [facility] Urea nitrogen/Creatinine [Mass ratio] 27 mg/mg High 9 - 20 [facility] CBC auto differentialon 10-0 Basophils (Bld) [#/Vol] 0.04 10*3/uL [facility] Basophils/100 WBC (Bld) 1 % 0 - 2 % B [facility] Eosinophils (Bld) [#/Vol] 0.20 10*3/uL [facility] Eosinophils/100 WBC (Bld) 3 % 1 - 4 % [facility] Erythrocyte distribution width (RBC) [Ratio] 12.5 % 11.8 - 14.4 % [facility] Hematocrit (Bld) [Volume fraction] 36.4 % Low 40.7 - 50.3 % [facility] Hemoglobin (Bld) [Mass/Vol] 12.0 g/dL Low 13.0 - 17.0 g/dL [facility] Immature granulocytes (Bld) [#/Vol] [facility] Immature granulocytes/100 WBC (Bld) 0 % 0 [facility] Interpretation and review of laboratory results Abnormal [facility] Lymphocytes/100 WBC (Bld) 33 % 24 - 43 % [facility] Lymphocytes/100 WBC (Bld) 2.48 % [facility] MCH (RBC) [Entitic mass] 29.1 pg 25.2 - 33.5 pg [facility] MCHC (RBC) [Mass/Vol] 33.0 g/dL 28.4 - 34.8 g/dL [facility] MCV (RBC) [Entitic vol] 88.1 fL 82.6 - 102.9 fL [facility] Monocytes/100 WBC (Bld) 11 % 3 - 12 % B ON [facility] Monocytes/100 WBC (Bld) 0.83 % B ON [facility] Neutrophils/100 WBC (Bld) 52 % 36 - 65 % [facility] Nucleated RBC/100 WBC (Bld) [Ratio] 0.0 % 0.0 per 100 WBC [facility] Platelet mean volume (Bld) [Entitic vol] 11.1 fL 8.1 - 13.5 fL [facility] Platelets (Bld) [#/Vol] 233 10*3/uL [facility] RBC (Bld) [#/Vol] 4.13 10*6/uL Low 4.21 - 5.7 7 m/uL [facility] Segmented neutrophils/100 WBC (Bld) 3.95 % [facility] WBC other (Bld) [#/Vol] 7.5 B ON [facility] CBC with Diffon 02-27-2024 Abs. Basophil 0.04 k/uL Normal 0.00-0.20 [facility] Comment on above: Performed By: #### B MPX, CDP ####[address] , [place] [phone] lab Director: Eder Herrera MD Abs.Imm.Granulocyte <0.03 Normal 0.00-0.30 [facility] Comment on above: Performed By: #### B MPX, CDP ####[address] [place] [address] lab Director: Eder Herrera MD Abs.Neutrophil (Seg) 3.95 k/uL Normal 1.50-8.10 [facility] Comment on above: Performed By: #### B MPX, CDP ####[address] , [place] [phone] Lab Director: Eder Herrera MD Basophils/100 WBC (Bld) 1 % Normal 0-2 [facility] Comment on above: Performed By: #### B MPX, CDP ####[address] , [place] [phone] lab Director: Eder Herrera MD Eosinophils (Bld) [#/Vol] 0.20 10*3/uL Normal 0.00-0.44 [facility] Comment on above: Performed By: #### B MPX, CDP ####[address] , [place] [phone] lab Director: Eder Herrera MD Eosinophils/100 WBC (Bld) 3 % Normal 1-4 [facility] Comment on above: Performed By: #### B MPX, CDP ####[address] , [place] [phone] lab Director: Eder Herrera MD Erythrocyte distribution width (RBC) [Ratio] 12.5 % Normal 11.8-14.4 [facility] Comment on above: Performed By: #### B MPX, CDP ####[address] , [place] [phone] Lab Director: Eder Herrera MD Hematocrit (Bld) [Volume fraction] 36.4 % Low 40.7-50.3 [facility] Comment on above: Performed By: #### B MPX, CDP ####[address] [place] [address] Lab Director: Eder Herrera MD Hemoglobin (Bld) [Mass/Vol] 12.0 g/dL Low 13.0-17.0 [facility] Comment on above: Performed By: #### B MPX, CDP ####[address] , [place] [phone] Lab Director: Eder Herrera MD Immature granulocytes/100 WBC (Bld) 0 % Normal 0 [facility] Comment on above: Performed By: #### B MPX, CDP ####[address] , [place] [phone] Lab Director: Eder Herrera MD Lymphocytes (Bld) [#/Vol] 2.48 10*3/uL Normal 1.10-3.70 [facility] Comment on above: Performed By: #### B MPX, CDP ####[address] , [place] [phone] Lab Director: Eder Herrera MD Lymphocytes/100 WBC (Bld) 33 % Normal 24-43 [facility] Comment on above: Performed By: #### B MPX, CDP ####[address] [place] [address] Lab Director: Eder Herrera MD MCH (RBC) [Entitic mass] 29.1 pg Normal 25.2-33.5 [facility] Comment on above: Performed By: #### B MPX, CDP ####[address] , [place] [phone] Lab Director: Eder Herrera MD MCHC (RBC) [Mass/Vol] 33.0 g/dL Normal 28.4-34.8 [facility] Comment on above: Performed By: #### B MPX, CDP ####[address] , [place] 8162983 Lab Director: Eder Herrera MD MCV (RBC) [Entitic vol] 88.1 fL Normal 82.6-102.9 M [facility] Comment on above: Performed By: #### B MPX, CDP ####[address] , [place] 1919483 Lab Director: Eder Herrera MD Monocytes (Bld) [#/Vol] 0.83 10*3/uL Normal 0.10-1.20 [facility] Comment on above: Performed By: #### B MPX, CDP ####[address] , [place] 5323883 Lab Director: Eder Herrera MD Monocytes/100 WBC (Bld) 11 % Normal 3-12 M [facility] Comment on above: Performed By: #### B MPX, CDP ####[address] [place] [address] Lab Director: Eder Herrera MD Neutrophil (Seg) 52 % Normal 36-65 [facility] Comment on above: Performed By: #### B MPX, CDP ####[address] , [place] [phone] Lab Director: Eder Herrera MD NRBC Automated 0.0 per 100 WBC Normal 0.0 [facility] Comment on above: Performed By: #### B MPX, CDP ####[address] , [place] [phone] Director: Eder Herrera MD Platelet mean volume (Bld) [Entitic vol] 11.1 fL Normal 8.1-13.5 [facility] Comment on above: Performed By: #### B MPX, CDP ####[address] , [place] [phone] Director: Eder Herrera MD Platelets (Bld) [#/Vol] 233 10*3/uL Normal 138-453 [facility] Comment on above: Performed By: #### B MPX, CDP ####[address] , [place] [phone] Lab Director: Eder Herrera MD RBC (Bld) [#/Vol] 4.13 10*6/uL Low 4.21-5.77 [facility] Comment on above: Performed By: #### B MPX, CDP ####[facility] [place] , [place] 7904083 lab Director: Eder Herrera MD WBC (Bld) [#/Vol] 7.5 10*3/uL Normal 3.5-11.3 [facility] Comment on above: Performed By: #### B MPX, CDP ####[facility] [place] [address] [place] , [place] [phone] lab Director: Eder Herrera MD Glucose, Whole Bloodon 02-26 Glucose [Mass/Vol] 223 mg/dL High 74 - 100 mg/dL [facility] Interpretation and review of laboratory results Abnormal [facility] Glucose [Mass/Vol] 223 mg/dL High 74-100 [facility] Glucose [Mass/Vol] 201 mg/dL High 74 - 100 mg/dL [facility] Interpretation and review of laboratory results Abnormal [facility] Glucose [Mass/Vol] 201 mg/dL High 74-100 [facility] Basic Metab w/rfx MGon 02-25 Anion gap [Moles/Vol] 11 mmol/L Normal 9-16 [facility] Comment on above: Performed By: #### C DP, BMPX ####[address] , [place] [phone] lab Director: Eder Herrera MD BUN/CRE Ratio 23 High 9-20 [facility] Comment on above: Performed By: #### C DP, BMPX ####[address] , [place] [phone] lab Director: Eder Herrera MD Calcium [Mass/Vol] 9.0 mg/dL Normal 8.6-10.4 [facility] Comment on above: Performed By: #### C DP, BMPX ####[address] [place] [address] Lab Director: Eder Herrera MD Chloride [Moles/Vol] 102 mmol/L Normal 98-107 [facility] Comment on above: Performed By: #### C DP, BMPX ####[facility] [place] , [place] [phone] Lab Director: Eder Herrera MD CO2 [Moles/Vol] 27 mmol/L Normal 20-31 [facility] Comment on above: Performed By: #### C DP, BMPX ####[facility] [place] , [place] [phone] Lab Director: Eder Herrera MD Creatinine [Mass/Vol] 2.1 mg/dL High 0.70-1.20 [facility] Comment on above: Performed By: #### C DP, BMPX ####[facility] [place] , [place] 0592383 Lab Director: Eder Herrera MD GFR/1.73 sq M.predicted among non-blacks MDRD (S/P/Bld) [Vol rate/Area] 36 mL/min/{1.73_m2} Low >60 [facility] Comment on above: Result Comment: Thes e results are not intended for use in patients <18 years of age.eGFR results are calculated without a race factor using the 2020 CKD-EPI equation.Careful clinical correlation is recommended, particularly when comparing to results calculated using previous equations.The CKD-EPI equation is less accurate in patients with extremes of muscle mass, extra-renal metabolism of creatine, excessive creatine ingestion, or following therapy that affects renal tubular secretion. Performed By: #### C DP, BMPX ####[facility] [place] [address] Lab Director: Eder Herrera MD Glucose [Mass/Vol] 189 mg/dL High 74-99 [facility] Comment on above: Performed By: #### C DP, BMPX ####[facility], [place] 3208[address] Lab Director: Eder Herrera MD Potassium [Moles/Vol] 3.8 mmol/L Normal 3.7-5.3 [facility] Comment on above: Performed By: #### C DP, BMPX ####[facility] [phone] lab Director: Eder Herrera MD Sodium [Moles/Vol] 140 mmol/L Normal 136-145 [facility] Comment on above: Performed By: #### C DP, BMPX ####[facility] [phone] lab Director: Eder Herrera MD Urea nitrogen [Mass/Vol] 49 mg/dL High 8-23 [facility] Comment on above: Performed By: #### C DP, BMPX ####[address] , [place] [phone] lab Director: Eder Herrera MD Basic Metabolic Panel w/ Ref willam to MGon 02-26-2024 Anion gap [Moles/Vol] 11 mmol/L 9 - 16 mmol/L [facility] Calcium [Mass/Vol] 9.0 mg/dL 8.6 - 10. 4 mg/dL [facility] Chloride [Moles/Vol] 102 mmol/L 98 - 10 7 mmol/L [facility] CO2 [Moles/Vol] 27 mmol/L 20 - 31 mmol/L [facility] Creatinine [Mass/Vol] 2.1 mg/dL High 0.70 - 1.20 mg/dL [facility] Est, Glom Filt Rate 36 Low - [facility] Comment on above: These results are not intended for use in patients <18 years of age. eGFR results are calculated without a race factor using the 2020 CKD-EPI equation. Careful clinical correlation is recommended, particularly when comparing to results calculated using previous equations. The CKD-EPI equation is less accurate in patients with extremes of muscle mass, extra-renal metabolism of creatine, excessive creatine ingestion, or following therapy that affects renal tubular secretion. Glucose [Mass/Vol] 189 mg/dL High 74 - 99 mg/dL [facility] Interpretation and review of laboratory results Abnormal [facility] Potassium [Moles/Vol] 3.8 mmol/L 3.7 - 5.3 mmol/L [facility] Sodium [Moles/Vol] 140 mmol/L 136 - 145 mmol/L [facility] Urea nitrogen [Mass/Vol] 49 mg/dL High 8 - 23 mg/dL [facility] Urea nitrogen/Creatinine [Mass ratio] 23 mg/mg High 9 - 20 [facility] CBC auto differentialon 10-0 Basophils (Bld) [#/Vol] 0.03 10*3/uL [facility] Basophils/100 WBC (Bld) 0 % 0 - 2 % B [facility] Eosinophils (Bld) [#/Vol] 0.12 10*3/uL [facility] Eosinophils/100 WBC (Bld) 2 % 1 - 4 % [facility] Erythrocyte distribution width (RBC) [Ratio] 12.6 % 11.8 - 14.4 % [facility] Hematocrit (Bld) [Volume fraction] 37.5 % Low 40.7 - 50.3 % [facility] Hemoglobin (Bld) [Mass/Vol] 12.3 g/dL Low 13.0 - 17.0 g/dL [facility] Immature granulocytes (Bld) [#/Vol] [facility] Immature granulocytes/100 WBC (Bld) 0 % 0 [facility] Interpretation and review of laboratory results Abnormal [facility] Lymphocytes/100 WBC (Bld) 32 % 24 - 43 % [facility] Lymphocytes/100 WBC (Bld) 2.38 % [facility] MCH (RBC) [Entitic mass] 28.8 pg 25.2 - 33.5 pg [facility] MCHC (RBC) [Mass/Vol] 32.8 g/dL 28.4 - 34.8 g/dL [facility] MCV (RBC) [Entitic vol] 87.8 fL 82.6 - 102.9 fL [facility] Monocytes/100 WBC (Bld) 14 % High 3 - 12 % B ON [facility] Monocytes/100 WBC (Bld) 1.02 % B ON [facility] Neutrophils/100 WBC (Bld) 52 % 36 - 65 % [facility] Nucleated RBC/100 WBC (Bld) [Ratio] 0.0 % 0.0 per 100 WBC [facility] Platelet mean volume (Bld) [Entitic vol] 11.2 fL 8.1 - 13.5 fL [facility] Platelets (Bld) [#/Vol] 245 10*3/uL [facility] RBC (Bld) [#/Vol] 4.27 10*6/uL 4.21 - 5.7 7 m/uL [facility] Segmented neutrophils/100 WBC (Bld) 3.78 % [facility] WBC other (Bld) [#/Vol] 7.4 B ON [facility] CBC with Diffon 02-26-2024 Abs. Basophil 0.03 k/uL Normal 0.00-0.20 [facility] Comment on above: Performed By: #### C DP, BMPX ####[address] [place] [address] Lab Director: Eder Herrera MD Abs.Imm.Granulocyte <0.03 Normal 0.00-0.30 [facility] Comment on above: Performed By: #### C DP, BMPX ####[address] , [place] [address] Lab Director: Eder Herrera MD Abs.Neutrophil (Seg) 3.78 k/uL Normal 1.50-8.10 [facility] Comment on above: Performed By: #### C DP, BMPX ####[address] [place] [phone] Lab Director: Eder Herrera MD Basophils/100 WBC (Bld) 0 % Normal 0-2 M [facility] Comment on above: Performed By: #### C DP, BMPX ####[address] [place] [address] Lab Director: Eder Herrera MD Eosinophils (Bld) [#/Vol] 0.12 10*3/uL Normal 0.00-0.44 [facility] Comment on above: Performed By: #### C DP, BMPX ####[address] , [place] [address] Lab Director: Eder Herrera MD Eosinophils/100 WBC (Bld) 2 % Normal 1-4 [facility] Comment on above: Performed By: #### C DP, BMPX ####[address] , [place] [address] Lab Director: Eder Herrera MD Erythrocyte distribution width (RBC) [Ratio] 12.6 % Normal 11.8-14.4 [facility] Comment on above: Performed By: #### C DP, BMPX ####[address] , [place] [address] Lab Director: Eder Herrera MD Hematocrit (Bld) [Volume fraction] 37.5 % Low 40.7-50.3 [facility] Comment on above: Performed By: #### C DP, BMPX ####[address] , [facility]83 Lab Director: Eder Herrera MD Hemoglobin (Bld) [Mass/Vol] 12.3 g/dL Low 13.0-17.0 [facility] Comment on above: Performed By: #### C DP, BMPX ####[address] [place] [phone] Lab Director: Eder Herrera MD Immature granulocytes/100 WBC (Bld) 0 % Normal 0 [facility] Comment on above: Performed By: #### C DP, BMPX ####[address] , [facility]83 [facility] Director: Eder Herrera MD Lymphocytes (Bld) [#/Vol] 2.38 10*3/uL Normal 1.10-3.70 [facility] Comment on above: Performed By: #### C DP, BMPX ####[address] , [facility]83 Lab Director: Eder Herrera MD Lymphocytes/100 WBC (Bld) 32 % Normal 24-43 [facility] Comment on above: Performed By: #### C DP, BMPX ####[address] , [facility]83[facility])[phone] Director: Eder Herrera MD MCH (RBC) [Entitic mass] 28.8 pg Normal 25.2-33.5 [facility] Comment on above: Performed By: #### C DP, BMPX ####[address] , [facility]83[facility])[phone] Director: Eder Herrera MD MCHC (RBC) [Mass/Vol] 32.8 g/dL Normal 28.4-34.8 [facility] Comment on above: Performed By: #### C DP, BMPX ####[address] , [facility]83[facility])[phone] Director: Eder Herrera MD MCV (RBC) [Entitic vol] 87.8 fL Normal 82.6-102.9 [facility] Comment on above: Performed By: #### C DP, BMPX ####[address] , [place] [phone] Lab Director: Eder Herrera MD Monocytes (Bld) [#/Vol] 1.02 10*3/uL Normal 0.10-1.20 [facility] Comment on above: Performed By: #### C DP, BMPX ####[address] , [place] [phone] Lab Director: Eder Herrera MD Monocytes/100 WBC (Bld) 14 % High 3-12 M [facility] Comment on above: Performed By: #### C DP, BMPX ####[address] [place] [address] Lab Director: Eder Herrera MD Neutrophil (Seg) 52 % Normal 36-65 [facility] Comment on above: Performed By: #### C DP, BMPX ####[address] [place] [address] Lab Director: Eder Herrera MD NRBC Automated 0.0 per 100 WBC Normal 0.0 [facility] Comment on above: Performed By: #### C DP, BMPX ####[address] , [place] [phone] Lab Director: Eder Herrera MD Platelet mean volume (Bld) [Entitic vol] 11.2 fL Normal 8.1-13.5 [facility] Comment on above: Performed By: #### C DP, BMPX ####[address] , [place] [phone] Director: Eder Herrera MD Platelets (Bld) [#/Vol] 245 10*3/uL Normal 138-453 [facility] Comment on above: Performed By: #### C DP, BMPX ####[address] , [place] [phone] Director: Eder Herrera MD RBC (Bld) [#/Vol] 4.27 10*6/uL Normal 4.21-5.77 [facility] Comment on above: Performed By: #### C DP, BMPX ####[address] [place] [address] Lab Director: Eder Herrera MD WBC (Bld) [#/Vol] 7.4 10*3/uL Normal 3.5-11.3 [facility] Comment on above: Performed By: #### C DP, BMPX ####[facility] [place] [address] lab Director: Eder Herrera MD Glucose, Whole Bloodon 02-25 Glucose [Mass/Vol] 245 mg/dL High 74 - 100 mg/dL [facility] Interpretation and review of laboratory results Abnormal [facility] Glucose [Mass/Vol] 245 mg/dL High 74-100 [facility] Glucose [Mass/Vol] 274 mg/dL High 74 - 100 mg/dL [facility] Interpretation and review of laboratory results Abnormal [facility] Glucose [Mass/Vol] 274 mg/dL High 74-100 [facility] Glucose [Mass/Vol] 299 mg/dL High 74 - 100 mg/dL [facility] Interpretation and review of laboratory results Abnormal [facility] Glucose [Mass/Vol] 299 mg/dL High 74-100 [facility] Glucose [Mass/Vol] 196 mg/dL High 74 - 100 mg/dL [facility] Interpretation and review of laboratory results Abnormal [facility] Glucose [Mass/Vol] 196 mg/dL High 74-100 [facility] Basic Metab w/rfx MGon 02-24 Anion gap [Moles/Vol] 11 mmol/L Normal 9-16 [facility] Comment on above: Performed By: #### C DP, BMPX, MG ####[facility] [place] , [place] [id number] lab Director: Eder Herrera MD BUN/CRE Ratio 25 High 9-20 [facility] Comment on above: Performed By: #### C DP, BMPX, MG ####[facility] [place] [address] lab Director: Eder Herrera MD Calcium [Mass/Vol] 9.1 mg/dL Normal 8.6-10.4 [facility] Comment on above: Performed By: #### C DP, BMPX, MG ####[address] , [place] [id number] lab Director: Eder Herrera MD Chloride [Moles/Vol] 103 mmol/L Normal 98-107 [facility] Comment on above: Performed By: #### C DP, BMPX, MG ####[address] , [place] [id number] lab Director: Eder Herrera MD CO2 [Moles/Vol] 26 mmol/L Normal 20-31 [facility] Comment on above: Performed By: #### C DP, BMPX, MG ####[address] , [place] [id number] lab Director: Eder Herrera MD Creatinine [Mass/Vol] 1.7 mg/dL High 0.70-1.20 [facility] Comment on above: Performed By: #### C DP, BMPX, MG ####[address] , [place] [id number] lab Director: Eder Herrera MD GFR/1.73 sq M.predicted among non-blacks MDRD (S/P/Bld) [Vol rate/Area] 45 mL/min/{1.73_m2} Low >60 [facility] Comment on above: Result Comment: Thes e results are not intended for use in patients <18 years of age.eGFR results are calculated without a race factor using the 2020 CKD-EPI equation.Careful clinical correlation is recommended, particularly when comparing to results calculated using previous equations.The CKD-EPI equation is less accurate in patients with extremes of muscle mass, extra-renal metabolism of creatine, excessive creatine ingestion, or following therapy that affects renal tubular secretion. Performed By: #### C DP, BMPX, MG ####[address] [place] [address] lab Director: Eder Herrera MD Glucose [Mass/Vol] 116 mg/dL High 74-99 [facility] Comment on above: Performed By: #### C DP, BMPX, MG ####[facility] [place] [address] Lab Director: Eder Herrera MD Potassium [Moles/Vol] 3.1 mmol/L Low 3.7-5.3 [facility] Comment on above: Performed By: #### C DP, BMPX, MG ####[facility] [place] [address] lab Director: Eder Herrera MD Sodium [Moles/Vol] 140 mmol/L Normal 136-145 [facility] Comment on above: Performed By: #### C DP, BMPX, MG ####[facility] [place] [address] Lab Director: Eder Herrera MD Urea nitrogen [Mass/Vol] 42 mg/dL High 8-23 [facility] Comment on above: Performed By: #### C DP, BMPX, MG ####[facility] [place] [address] lab Director: Eder Herrera MD Basic Metabolic Panel w/ Ref willam to MGon 02-25-2024 Anion gap [Moles/Vol] 11 mmol/L 9 - 16 mmol/L [facility] Calcium [Mass/Vol] 9.1 mg/dL 8.6 - 10. 4 mg/dL [facility] Chloride [Moles/Vol] 103 mmol/L 98 - 10 7 mmol/L [facility] CO2 [Moles/Vol] 26 mmol/L 20 - 31 mmol/L [facility] Creatinine [Mass/Vol] 1.7 mg/dL High 0.70 - 1.20 mg/dL [facility] Est, Glom Filt Rate 45 Low - [facility] Comment on above: These results are not intended for use in patients <18 years of age. eGFR results are calculated without a race factor using the 2020 CKD-EPI equation. Careful clinical correlation is recommended, particularly when comparing to results calculated using previous equations. The CKD-EPI equation is less accurate in patients with extremes of muscle mass, extra-renal metabolism of creatine, excessive creatine ingestion, or following therapy that affects renal tubular secretion. Glucose [Mass/Vol] 116 mg/dL High 74 - 99 mg/dL [facility] Interpretation and review of laboratory results Abnormal [facility] Potassium [Moles/Vol] 3.1 mmol/L Low 3.7 - 5.3 mmol/L [facility] Sodium [Moles/Vol] 140 mmol/L 136 - 145 mmol/L [facility] Urea nitrogen [Mass/Vol] 42 mg/dL High 8 - 23 mg/dL [facility] Urea nitrogen/Creatinine [Mass ratio] 25 mg/mg High 9 - 20 [facility] CBC auto differentialon 10-0 Basophils (Bld) [#/Vol] 0.05 10*3/uL [facility] Basophils/100 WBC (Bld) 1 % 0 - 2 % B ON [facility] Eosinophils (Bld) [#/Vol] 0.10 10*3/uL [facility] Eosinophils/100 WBC (Bld) 2 % 1 - 4 % [facility] Erythrocyte distribution width (RBC) [Ratio] 12.4 % 11.8 - 14.4 % [facility] Hematocrit (Bld) [Volume fraction] 37.3 % Low 40.7 - 50.3 % [facility] Hemoglobin (Bld) [Mass/Vol] 12.5 g/dL Low 13.0 - 17.0 g/dL [facility] Immature granulocytes (Bld) [#/Vol] 0.03 10*3/uL [facility] Immature granulocytes/100 WBC (Bld) 0 % 0 [facility] Interpretation and review of laboratory results Abnormal [facility] Lymphocytes/100 WBC (Bld) 37 % 24 - 43 % [facility] Lymphocytes/100 WBC (Bld) 2.50 % [facility] MCH (RBC) [Entitic mass] 29.1 pg 25.2 - 33.5 pg [facility] MCHC (RBC) [Mass/Vol] 33.5 g/dL 28.4 - 34.8 g/dL [facility] MCV (RBC) [Entitic vol] 86.7 fL 82.6 - 102.9 fL [facility] Monocytes/100 WBC (Bld) 14 % High 3 - 12 % B ON [facility] Monocytes/100 WBC (Bld) 0.92 % B ON [facility] Neutrophils/100 WBC (Bld) 47 % 36 - 65 % [facility] Nucleated RBC/100 WBC (Bld) [Ratio] 0.0 % 0.0 per 100 WBC [facility] Platelet mean volume (Bld) [Entitic vol] 10.8 fL 8.1 - 13.5 fL [facility] Platelets (Bld) [#/Vol] 257 10*3/uL [facility] RBC (Bld) [#/Vol] 4.30 10*6/uL 4.21 - 5.7 7 m/uL [facility] Segmented neutrophils/100 WBC (Bld) 3.23 % [facility] WBC other (Bld) [#/Vol] 6.8 B ON [facility] CBC with Diffon 02-25-2024 Abs. Basophil 0.05 k/uL Normal 0.00-0.20 [facility] Comment on above: Performed By: #### C DP BMPX, MG ####[address] , [facility]83 Lab Director: Eder Herrera MD Abs.Imm.Granulocyte 0.03 k/uL Normal 0.00-0.30 [facility] Comment on above: Performed By: #### C DP BMPX, MG ####[address] , [place] [id number] lab Director: Eder Herrera MD Abs.Neutrophil (Seg) 3.23 k/uL Normal 1.50-8.10 [facility] Comment on above: Performed By: #### C DP, BMPX, MG ####[address] , [place] [id number] Lab Director: Eder Herrera MD Basophils/100 WBC (Bld) 1 % Normal 0-2 [facility] Comment on above: Performed By: #### C DP, BMPX, MG ####[address] , [facility]83 Lab Director: Eder Herrera MD Eosinophils (Bld) [#/Vol] 0.10 10*3/uL Normal 0.00-0.44 [facility] Comment on above: Performed By: #### C DP, BMPX, MG ####[address] , [facility]83 Lab Director: Eder Herrera MD Eosinophils/100 WBC (Bld) 2 % Normal 1-4 [facility] Comment on above: Performed By: #### C DP, BMPX, MG ####[address] , [facility]83 Lab Director: Eder Herrera MD Erythrocyte distribution width (RBC) [Ratio] 12.4 % Normal 11.8-14.4 [facility] Comment on above: Performed By: #### C DP, BMPX, MG ####[address] , [place] [address] Lab Director: Eder Herrera MD Hematocrit (Bld) [Volume fraction] 37.3 % Low 40.7-50.3 [facility] Comment on above: Performed By: #### C DP, BMPX, MG ####[address] , [place] [id number] Lab Director: Eder Herrera MD Hemoglobin (Bld) [Mass/Vol] 12.5 g/dL Low 13.0-17.0 [facility] Comment on above: Performed By: #### C DP, BMPX, MG ####[address] , [facility] Lab Director: Eder Herrera MD Immature granulocytes/100 WBC (Bld) 0 % Normal 0 [facility] Comment on above: Performed By: #### C DP, BMPX, MG ####[address] , [facility] lab Director: Eder Herrera MD Lymphocytes (Bld) [#/Vol] 2.50 10*3/uL Normal 1.10-3.70 [facility] Comment on above: Performed By: #### C DP, BMPX, MG ####[address] , [facility] lab Director: Eder Herrera MD Lymphocytes/100 WBC (Bld) 37 % Normal 24-43 [facility] Comment on above: Performed By: #### C DP, BMPX, MG ####[address] , [facility] lab Director: Eder Herrera MD MCH (RBC) [Entitic mass] 29.1 pg Normal 25.2-33.5 [facility] Comment on above: Performed By: #### C DP, BMPX, MG ####[address] , [facility] lab Director: Eder Herrera MD MCHC (RBC) [Mass/Vol] 33.5 g/dL Normal 28.4-34.8 [facility] Comment on above: Performed By: #### C DP, BMPX, MG ####[address] , [facility] lab Director: Eder Herrera MD MCV (RBC) [Entitic vol] 86.7 fL Normal 82.6-102.9 M [facility] Comment on above: Performed By: #### C DP, BMPX, MG ####[address] [place] [address] Lab Director: Eder Herrera MD Monocytes (Bld) [#/Vol] 0.92 10*3/uL Normal 0.10-1.20 [facility] Comment on above: Performed By: #### C DP, BMPX, MG ####[address] [place] [address] Lab Director: Eder Herrera MD Monocytes/100 WBC (Bld) 14 % High 3-12 M [facility] Comment on above: Performed By: #### C DP, BMPX, MG ####[address] , [place] [id number] Lab Director: Eder Herrera MD Neutrophil (Seg) 47 % Normal 36-65 [facility] Comment on above: Performed By: #### C DP, BMPX, MG ####[address] , [place] [id number] Lab Director: Eder Herrera MD NRBC Automated 0.0 per 100 WBC Normal 0.0 [facility] Comment on above: Performed By: #### C DP, BMPX, MG ####[address] [place] [address] Lab Director: Eder Herrera MD Platelet mean volume (Bld) [Entitic vol] 10.8 fL Normal 8.1-13.5 [facility] Comment on above: Performed By: #### C DP, BMPX, MG ####[address] , [place] [address] Lab Director: Eder Herrera MD Platelets (Bld) [#/Vol] 257 10*3/uL Normal 138-453 [facility] Comment on above: Performed By: #### C DP, BMPX, MG ####[address] [place] [address] Lab Director: Eder Herrera MD RBC (Bld) [#/Vol] 4.30 10*6/uL Normal 4.21-5.77 [facility] Comment on above: Performed By: #### C DP, BMPX, MG ####[facility] [place] [address] lab Director: Eder Herrera MD WBC (Bld) [#/Vol] 6.8 10*3/uL Normal 3.5-11.3 [facility] Comment on above: Performed By: #### C DP, BMPX, MG ####[facility] [place] [address] Lab Director: Eder Herrera MD Cult,Urineon 02-25-2024 Cult,Urine Specimen Description .CLEAN CATCH URINE Special Requests Site: Urine Culture NO SIGNIFICANT GROWTH Report Status FINAL 02/25/2024 Normal [facility] Comment on above: Performed By: #### U RC ####[facility] [id number] [place], [place] [id number] Lab Director: Jimenez Pruett, [facility] [place] [address] , [place] [address] lab Director: Eder Herrera MD Culture, Urineon 02-25-2024 Microorganism identified Cx Nom (Unsp spec) NO SIGNIFICANT GROWTH [facility] comment (Unsp spec) [Interp] Site: Urine [facility] Specimen Description .CLEAN CATCH URINE [facility] Glucose, Whole Bloodon 02-24 Glucose [Mass/Vol] 301 mg/dL High 74 - 100 mg/dL [facility] Interpretation and review of laboratory results Abnormal [facility] Glucose [Mass/Vol] 301 mg/dL High 74-100 [facility] Glucose [Mass/Vol] 306 mg/dL High 74 - 100 mg/dL [facility] Interpretation and review of laboratory results Abnormal [facility] Glucose [Mass/Vol] 306 mg/dL High 74-100 [facility] Glucose [Mass/Vol] 190 mg/dL High 74 - 100 mg/dL [facility] Interpretation and review of laboratory results Abnormal [facility] Glucose [Mass/Vol] 190 mg/dL High 74-100 [facility] Glucose [Mass/Vol] 134 mg/dL High 74 - 100 mg/dL [facility] Interpretation and review of laboratory results Abnormal [facility] Glucose [Mass/Vol] 134 mg/dL High 74-100 [facility] Hemoglobin A1Con 02-25-2024 Glucose [Mass/Vol] 174 mg/dL Normal [facility] Comment on above: Result Comment: The ADA and AACC recommend providing the estimated average glucose result to permit better patient understanding of their HBA1c result. Performed By: #### G LYHGB ####[employer] [id number] [place] [id number] [facility] Director: Jimenez Pruett MD HbA1c (Bld) [Mass fraction] 7.7 % High 4.0-6.0 [facility] Comment on above: Performed By: #### G LYHGB ####[employer] [id number] [place] [id number] lab Director: Jimenez Pruett MD Hemoglobin A1con 02-25-2024 Average glucose Estimated from glycated hemoglobin (Bld) [Mass/Vol] 174 mg/dL [facility] Comment on above: The ADA and AACC rec ommend providing the estimated average glucose result to permit better patient understanding of their HBA1c result. HbA1c (Bld) [Mass fraction] 7.7 % High 4.0 - 6.0 % [facility] Interpretation and review of laboratory results Abnormal [facility] Magnesiumon 02-25-2024 Magnesium [Mass/Vol] 2.0 mg/dL 1.6 - 2 .4 mg/dL [facility] Magnesium [Mass/Vol] 2.0 mg/dL Normal 1.6-2.4 [facility] Comment on above: Performed By: #### C DP, BMPX, MG ####[facility] [place] , [place] [id number] Lab Director: Eder Herrera MD Brain Natri. Peptideon 02-23 Natriuretic peptide B (Bld) [Mass/Vol] 346 pg/mL High 0-125 [facility] Comment on above: Performed By: #### C P, CDP, BNP, MG ####[facility] [place] [address] lab Director: Eder Herrera MD Brain Natriuretic Peptideon 02-24-2024 Natriuretic peptide B (Bld) [Mass/Vol] 346 pg/mL High 0 - 125 pg/mL [facility] CBC with Auto Differentialon 02-24-2024 Basophils (Bld) [#/Vol] 0.05 10*3/uL [facility] Basophils/100 WBC (Bld) 1 % 0 - 2 % B [facility] Eosinophils (Bld) [#/Vol] 0.06 10*3/uL [facility] Eosinophils/100 WBC (Bld) 1 % 1 - 4 % [facility] Erythrocyte distribution width (RBC) [Ratio] 12.4 % 11.8 - 14.4 % [facility] Hematocrit (Bld) [Volume fraction] 44.1 % 40.7 - 50.3 % [facility] Hemoglobin (Bld) [Mass/Vol] 15.0 g/dL 13.0 - 17.0 g/dL [facility] Immature granulocytes (Bld) [#/Vol] 0.04 10*3/uL [facility] Immature granulocytes/100 WBC (Bld) 1 % High 0 [facility] Interpretation and review of laboratory results Abnormal [facility] Lymphocytes/100 WBC (Bld) 28 % 24 - 43 % [facility] Lymphocytes/100 WBC (Bld) 2.20 % [facility] MCH (RBC) [Entitic mass] 29.5 pg 25.2 - 33.5 pg [facility] MCHC (RBC) [Mass/Vol] 34.0 g/dL 28.4 - 34.8 g/dL [facility] MCV (RBC) [Entitic vol] 86.6 fL 82.6 - 102.9 fL [facility] Monocytes/100 WBC (Bld) 10 % 3 - 12 % B ON [facility] Monocytes/100 WBC (Bld) 0.76 % B ON [facility] Neutrophils/100 WBC (Bld) 59 % 36 - 65 % [facility] Nucleated RBC/100 WBC (Bld) [Ratio] 0.0 % 0.0 per 100 WBC [facility] Platelet mean volume (Bld) [Entitic vol] 10.9 fL 8.1 - 13.5 fL [facility] Platelets (Bld) [#/Vol] 291 10*3/uL [facility] RBC (Bld) [#/Vol] 5.09 10*6/uL 4.21 - 5.7 7 m/uL [facility] Segmented neutrophils/100 WBC (Bld) 4.69 % [facility] WBC other (Bld) [#/Vol] 7.8 B ON [facility] CBC with Diffon 02-24-2024 Abs. Basophil 0.05 k/uL Normal 0.00-0.20 [facility] Comment on above: Performed By: #### C P, CDP, BNP, MG ####[address] [place] [address] Lab Director: Eder Herrera MD Abs.Imm.Granulocyte 0.04 k/uL Normal 0.00-0.30 [facility] Comment on above: Performed By: #### C P, CDP, BNP, MG ####[address] [place] [address] Lab Director: Eder Herrera MD Abs.Neutrophil (Seg) 4.69 k/uL Normal 1.50-8.10 [facility] Comment on above: Performed By: #### C P, CDP, BNP, MG ####[address] , [place] [id number] Lab Director: Eder Herrera MD Basophils/100 WBC (Bld) 1 % Normal 0-2 [facility] Comment on above: Performed By: #### C P, CDP, BNP, MG ####[address] , [place] [id number] lab Director: Eder Herrera MD Eosinophils (Bld) [#/Vol] 0.06 10*3/uL Normal 0.00-0.44 [facility] Comment on above: Performed By: #### C P, CDP, BNP, MG ####[address] , [facility] lab Director: Eder Herrera MD Eosinophils/100 WBC (Bld) 1 % Normal 1-4 [facility] Comment on above: Performed By: #### C P, CDP, BNP, MG ####[address] , [facility] lab Director: Eder Herrera MD Erythrocyte distribution width (RBC) [Ratio] 12.4 % Normal 11.8-14.4 [facility] Comment on above: Performed By: #### C P, CDP, BNP, MG ####[address] , [facility] lab Director: Eder Herrera MD Hematocrit (Bld) [Volume fraction] 44.1 % Normal 40.7-50.3 [facility] Comment on above: Performed By: #### C P, CDP, BNP, MG ####[address] , [place] [id number] lab Director: Eder Herrera MD Hemoglobin (Bld) [Mass/Vol] 15.0 g/dL Normal 13.0-17.0 [facility] Comment on above: Performed By: #### C P, CDP, BNP, MG ####[address] , [place] [address] lab Director: Eder Herrera MD Immature granulocytes/100 WBC (Bld) 1 % High 0 [facility] Comment on above: Performed By: #### C P, CDP, BNP, MG ####[address] , [place] [address] lab Director: Eder Herrera MD Lymphocytes (Bld) [#/Vol] 2.20 10*3/uL Normal 1.10-3.70 [facility] Comment on above: Performed By: #### C P, CDP, BNP, MG ####[address] , [place] 395[address] lab Director: Eder Herrera MD Lymphocytes/100 WBC (Bld) 28 % Normal 24-43 [facility] Comment on above: Performed By: #### C P, CDP, BNP, MG ####[address] , [place] [address] lab Director: Eder Herrera MD MCH (RBC) [Entitic mass] 29.5 pg Normal 25.2-33.5 [facility] Comment on above: Performed By: #### C P, CDP, BNP, MG ####[address] , [place] [address] lab Director: Eder Herrera MD MCHC (RBC) [Mass/Vol] 34.0 g/dL Normal 28.4-34.8 [facility] Comment on above: Performed By: #### C P, CDP, BNP, MG ####[address] , [place] [id number] lab Director: Eder Herrera MD MCV (RBC) [Entitic vol] 86.6 fL Normal 82.6-102.9 M [facility] Comment on above: Performed By: #### C P, CDP, BNP, MG ####[address] , [place] [address] Lab Director: Eder Herrera MD Monocytes (Bld) [#/Vol] 0.76 10*3/uL Normal 0.10-1.20 [facility] Comment on above: Performed By: #### C P, CDP, BNP, MG ####[address] , [place] [address] Lab Director: Eder Herrera MD Monocytes/100 WBC (Bld) 10 % Normal 3-12 M [facility] Comment on above: Performed By: #### C P, CDP, BNP, MG ####[address] , [facility] Lab Director: Eder Herrera MD Neutrophil (Seg) 59 % Normal 36-65 [facility] Comment on above: Performed By: #### C P, CDP, BNP, MG ####[address] , [facility] Lab Director: Eder Herrera MD NRBC Automated 0.0 per 100 WBC Normal 0.0 [facility] Comment on above: Performed By: #### C P, CDP, BNP, MG ####[address] , [place] [address] Lab Director: Eder Herrera MD Platelet mean volume (Bld) [Entitic vol] 10.9 fL Normal 8.1-13.5 [facility] Comment on above: Performed By: #### C P, CDP, BNP, MG ####[address] , [place] [id number] Lab Director: Eder Herrera MD Platelets (Bld) [#/Vol] 291 10*3/uL Normal 138-453 [facility] Comment on above: Performed By: #### C P, CDP, BNP, MG ####[address] [place] [address] lab Director: Eder Herrera MD RBC (Bld) [#/Vol] 5.09 10*6/uL Normal 4.21-5.77 [facility] Comment on above: Performed By: #### C P, CDP, BNP, MG ####[facility] [place] [address] lab Director: Eder Herrera MD WBC (Bld) [#/Vol] 7.8 10*3/uL Normal 3.5-11.3 [facility] Comment on above: Performed By: #### C P, CDP, BNP, MG ####[facility] [place] [address] lab Director: Eder Herrera MD CMPon 02-24-2024 Albumin [Mass/Vol] 4.3 g/dL 3.5 - 5.2 g/dL [facility] Albumin/Globulin [Mass ratio] 1.2 {ratio} 1.0 - 2.5 [facility] ALP [Catalytic activity/Vol] 109 U/L 40 - 129 U/L [facility] ALT [Catalytic activity/Vol] 17 U/L 10 - 50 U/L [facility] Anion gap [Moles/Vol] 14 mmol/L 9 - 16 mmol/L [facility] AST [Catalytic activity/Vol] 17 U/L 10 - 50 U/L [facility] Bilirubin [Mass/Vol] 0.2 mg/dL 0.00 - 1.20 mg/dL [facility] Calcium [Mass/Vol] 9.6 mg/dL 8.6 - 10. 4 mg/dL [facility] Chloride [Moles/Vol] 97 mmol/L Low 98 - 10 7 mmol/L [facility] CO2 [Moles/Vol] 27 mmol/L 20 - 31 mmol/L [facility] Creatinine [Mass/Vol] 1.7 mg/dL High 0.70 - 1.20 mg/dL [facility] Est, Glom Filt Rate 44 Low - [facility] Comment on above: These results are not intended for use in patients <18 years of age. eGFR results are calculated without a race factor using the 2020 CKD-EPI equation. Careful clinical correlation is recommended, particularly when comparing to results calculated using previous equations. The CKD-EPI equation is less accurate in patients with extremes of muscle mass, extra-renal metabolism of creatine, excessive creatine ingestion, or following therapy that affects renal tubular secretion. Glucose [Mass/Vol] 170 mg/dL High 74 - 99 mg/dL [facility] Potassium [Moles/Vol] 3.2 mmol/L Low 3.7 - 5.3 mmol/L [facility] Protein [Mass/Vol] 7.8 g/dL 6.6 - 8.7 g/dL [facility] Sodium [Moles/Vol] 138 mmol/L 136 - 145 mmol/L [facility] Urea nitrogen [Mass/Vol] 49 mg/dL High 8 - 23 mg/dL [facility] Urea nitrogen/Creatinine [Mass ratio] 29 mg/mg High 9 - 20 [facility] Comp Metabolic Profon 2023 Albumin [Mass/Vol] 4.3 g/dL Normal 3.5-5.2 [facility] Comment on above: Performed By: #### C P, CDP, BNP, MG ####[address] [place] [address] Lab Director: Eder Herrera MD Albumin/Glob Ratio 1.2 Normal 1.0-2.5 [facility] Comment on above: Performed By: #### C P, CDP, BNP, MG ####[facility] [place] [address] lab Director: Eder Herrera MD Alkaline Phos 109 U/L Normal 40-129 [facility] Comment on above: Performed By: #### C P, CDP, BNP, MG ####[facility] [place] [address] lab Director: Eder Herrera MD ALT [Catalytic activity/Vol] 17 U/L Normal 10-50 [facility] Comment on above: Performed By: #### C P, CDP, BNP, MG ####[address] , [place] [id number] lab Director: Eder Herrera MD Anion gap [Moles/Vol] 14 mmol/L Normal 9-16 [facility] Comment on above: Performed By: #### C P, CDP, BNP, MG ####[address] , [facility]83 lab Director: Eder Herrera MD AST [Catalytic activity/Vol] 17 U/L Normal 10-50 [facility] Comment on above: Performed By: #### C P, CDP, BNP, MG ####[address] , [place] [id number] lab Director: Eder Herrera MD Bilirubin [Mass/Vol] 0.2 mg/dL Normal 0.00-1.20 [facility] Comment on above: Performed By: #### C P, CDP, BNP, MG ####[address] , [place] [id number] lab Director: Eder Herrera MD BUN/CRE Ratio 29 High 9-20 [facility] Comment on above: Performed By: #### C P, CDP, BNP, MG ####[address] , [facility]83 lab Director: Eder Herrera MD Calcium [Mass/Vol] 9.6 mg/dL Normal 8.6-10.4 [facility] Comment on above: Performed By: #### C P, CDP, BNP, MG ####[address] [place] [address] lab Director: Eder Herrera MD Chloride [Moles/Vol] 97 mmol/L Low 98-107 [facility] Comment on above: Performed By: #### C P, CDP, BNP, MG ####[address] , [place] [id number] Lab Director: Eder Herrera MD CO2 [Moles/Vol] 27 mmol/L Normal 20-31 [facility] Comment on above: Performed By: #### C P, CDP, BNP, MG ####[address] [place] [address] Lab Director: Eder Herrera MD Creatinine [Mass/Vol] 1.7 mg/dL High 0.70-1.20 [facility] Comment on above: Performed By: #### C P, CDP, BNP, MG ####[address] [place] [address] Lab Director: Eder Herrera MD GFR/1.73 sq M.predicted among non-blacks MDRD (S/P/Bld) [Vol rate/Area] 44 mL/min/{1.73_m2} Low >60 [facility] Comment on above: Result Comment: Thes e results are not intended for use in patients <18 years of age.eGFR results are calculated without a race factor using the 2020 CKD-EPI equation.Careful clinical correlation is recommended, particularly when comparing to results calculated using previous equations.The CKD-EPI equation is less accurate in patients with extremes of muscle mass, extra-renal metabolism of creatine, excessive creatine ingestion, or following therapy that affects renal tubular secretion. Performed By: #### C P, CDP, BNP, MG ####[address] , [place] [id number] lab Director: Eder Herrera MD Glucose [Mass/Vol] 170 mg/dL High 74-99 [facility] Comment on above: Performed By: #### C P, CDP, BNP, MG ####[address] , [place] [id number] lab Director: Eder Herrera MD Potassium [Moles/Vol] 3.2 mmol/L Low 3.7-5.3 [facility] Comment on above: Performed By: #### C P, CDP, BNP, MG ####[facility] [place] [address] lab Director: Eder Herrera MD Protein [Mass/Vol] 7.8 g/dL Normal 6.6-8.7 [facility] Comment on above: Performed By: #### C P, CDP, BNP, MG ####[facility] [place] [address] lab Director: Eder Herrera MD Sodium [Moles/Vol] 138 mmol/L Normal 136-145 [facility] Comment on above: Performed By: #### C P, CDP, BNP, MG ####[address] [place] [address] lab Director: Eder Herrera MD Urea nitrogen [Mass/Vol] 49 mg/dL High 8-23 [facility] Comment on above: Performed By: #### C P, CDP, BNP, MG ####[address] [place] [address] lab Director: Eder Herrera MD Glucose, Whole Bloodon 02-23 Glucose [Mass/Vol] 187 mg/dL High 74 - 100 mg/dL [facility] Interpretation and review of laboratory results Abnormal [facility] Glucose [Mass/Vol] 187 mg/dL High 74-100 [facility] Glucose [Mass/Vol] 199 mg/dL High 74 - 100 mg/dL [facility] Interpretation and review of laboratory results Abnormal [facility] Glucose [Mass/Vol] 199 mg/dL High 74-100 [facility] Magnesiumon 02-24-2024 Magnesium [Mass/Vol] 2.0 mg/dL 1.6 - 2 .4 mg/dL [facility] Magnesium [Mass/Vol] 2.0 mg/dL Normal 1.6-2.4 [facility] Comment on above: Performed By: #### C P, CDP, BNP, MG ####[facility] [place], [place] [id number] lab Director: Eder Herrera MD Microscopic Urinalysison Bacteria LM Ql (Urine sed) TRACE Abnormal None [facility] Epithelial cells LM.HPF (Urine sed) [#/Area] 0 TO 2 [facility] RBC LM.HPF (Urine sed) [#/Area] 0 TO 2 [facility] WBC LM.HPF (Urine sed) [#/Area] 0 TO 2 [facility] No Panel Informationon 02-23 Right tib fib: 1. Moderate soft tissue edema of the right leg. 2. No acute osseous abnormality. Right foot: 1. Moderate soft tissue swelling of the right foot. 2. No acute fracture or dislocation. Left tib fib: 1. Moderate soft tissue edema of the left leg. 2. No acute osseous abnormality. Left foot: 1. Moderate to severe soft tissue swelling of the left foot. 2. Mild plantar calcaneal spur. Remote healed fracture deformity of the proximal phalanx 2nd digit. 3. Mild degenerative changes as above. No acute osseous abnormality. [facility] RIS CONSOLIDATED EXAMINATION: 3 XRAY VIEWS OF THE RIGHT TIBIA AND FIBULA; THREE XRAY VIEWS OF THE LEFT FOOT; THREE XRAY VIEWS OF THE RIGHT FOOT; 3 XRAY VIEWS OF THE LEFT TIBIA AND FIBULA 02/24/2024 1:13 pm COMPARISON: None. HISTORY: ORDERING SYSTEM PROVIDED HISTORY: pain/swelling anterior wounds/cellulitis TECHNOLOGIST PROVIDED HISTORY: pain/swelling anterior wounds/cellulitis 63-year-old male with pain and swelling of anterior wound; cellulitis FINDINGS: Right tib fib: Moderate soft tissue edema of the right leg. Atherosclerotic calcification of the vasculature. Tibia and fibula appear intact. Ankle mortise appears intact. Right foot: Osseous alignment is normal. Joint spaces are well maintained. No marginal erosions are identified. No acute fracture or gross dislocation is seen. Bipartite fibular hallux sesamoid. The medial and middle cuneiforms demonstrate proper alignment with the base of the 1st and 2nd metatarsals respectively. No tibiotalar joint effusion is seen. Boehler's angle is maintained. Moderate to severe soft tissue swelling of the right foot. Mild plantar calcaneal spur. Atherosclerotic calcification of the vasculature. Left tib fib: Atherosclerotic calcification of the vasculature. Tibia and fibula appear intact. Moderate soft tissue edema of the left leg. Ankle mortise appears intact. Left foot: Osseous alignment is normal. Mild degenerative changes of the midfoot. No marginal erosions are identified. No acute fracture or gross dislocation is seen. The medial and middle cuneiforms demonstrate proper alignment with the base of the 1st and 2nd metatarsals respectively. No tibiotalar joint effusion is seen. Moderate to severe soft tissue swelling of the left foot. Atherosclerotic calcification of the vasculature. Mild plantar calcaneal spur. Remote healed fracture deformity of the proximal phalanx 2nd digit. Boehler's angle is maintained. [facility] RIS CONSOLIDATED Ravinder Corona MD - 02/24/2024 EXAMINATION: 3 XRAY VIEWS OF THE RIGHT TIBIA AND FIBULA; THREE XRAY VIEWS OF THE LEFT FOOT; THREE XRAY VIEWS OF THE RIGHT FOOT; 3 XRAY VIEWS OF THE LEFT TIBIA AND FIBULA 02/24/2024 1:13 pm COMPARISON: None. HISTORY: ORDERING SYSTEM PROVIDED HISTORY: pain/swelling anterior wounds/cellulitis TECHNOLOGIST PROVIDED HISTORY: pain/swelling anterior wounds/cellulitis 63-year-old male with pain and swelling of anterior wound; cellulitis FINDINGS: Right tib fib: Moderate soft tissue edema of the right leg. Atherosclerotic calcification of the vasculature. Tibia and fibula appear intact. Ankle mortise appears intact. Right foot: Osseous alignment is normal. Joint spaces are well maintained. No marginal erosions are identified. No acute fracture or gross dislocation is seen. Bipartite fibular hallux sesamoid. The medial and middle cuneiforms demonstrate proper alignment with the base of the 1st and 2nd metatarsals respectively. No tibiotalar joint effusion is seen. Boehler's angle is maintained. Moderate to severe soft tissue swelling of the right foot. Mild plantar calcaneal spur. Atherosclerotic calcification of the vasculature. Left tib fib: Atherosclerotic calcification of the vasculature. Tibia and fibula appear intact. Moderate soft tissue edema of the left leg. Ankle mortise appears intact. Left foot: Osseous alignment is normal. Mild degenerative changes of the midfoot. No marginal erosions are identified. No acute fracture or gross dislocation is seen. The medial and middle cuneiforms demonstrate proper alignment with the base of the 1st and 2nd metatarsals respectively. No tibiotalar joint effusion is seen. Moderate to severe soft tissue swelling of the left foot. Atherosclerotic calcification of the vasculature. Mild plantar calcaneal spur. Remote healed fracture deformity of the proximal phalanx 2nd digit. Boehler's angle is maintained. IMPRESSION: Right tib fib: 1. Moderate soft tissue edema of the right leg. 2. No acute osseous abnormality. Right foot: 1. Moderate soft tissue swelling of the right foot. 2. No acute fracture or dislocation. Left tib fib: 1. Moderate soft tissue edema of the left leg. 2. No acute osseous abnormality. Left foot: 1. Moderate to severe soft tissue swelling of the left foot. 2. Mild plantar calcaneal spur. Remote healed fracture deformity of the proximal phalanx 2nd digit. 3. Mild degenerative changes as above. No acute osseous abnormality. [facility] Interpretation and review of laboratory results Abnormal [facility] Interpretation and review of laboratory results Abnormal [facility] No Panel InformationOrdered By: Ravinder Corona on 02-24-2024 [facility] Work Phone: UA w/Reflex Cultureon 2023 Bilirubin, SemiQt,Ur Negative Normal NEG [facility] Comment on above: Performed By: #### U MICAO, UAX ####[facility] [place] [address] Lab Director: Eder Herrera MD Blood, Urine Negative Normal NEG [facility] Comment on above: Performed By: #### U MICAO, UAX ####[facility] [place] [address] Lab Director: Eder Herrera MD Clarity (U) Clear Normal CLEAR [facility] Comment on above: Performed By: #### U MICAO, UAX ####[facility] [place] [address] Lab Director: Eder Herrera MD Color (U) Yellow Normal YEL [facility] Comment on above: Performed By: #### U MICAO, UAX ####[address] , [place] [id number] Lab Director: Eder Herrera MD Glucose Ql (U) 3+ mg/dL Abnormal NEG [facility] Comment on above: Performed By: #### U MICAO, UAX ####[address] [place] [address] Lab Director: Eder Herrera MD Ketones Ql (U) Negative Normal NEG [facility] Comment on above: Performed By: #### U MICAO, UAX ####[address] , [place] [id number] Lab Director: Eder Herrera MD Leukocyte esterase Test strip Ql (U) Negative Normal NEG [facility] Comment on above: Performed By: #### U MICAO, UAX ####[address] [place] [address] Lab Director: Eder Herrera MD Nitrite,Ur Negative Normal NEG [facility] Comment on above: Performed By: #### U MICAO, UAX ####[address] [place] [address] Lab Director: Eder Herrera MD PH,Ur 6.0 Normal 5.0-9.0 [facility] Comment on above: Performed By: #### U MICAO, UAX ####[address] [place] [address] Lab Director: Eder Herrera MD Protein Ql (U) Negative Normal NEG [facility] Comment on above: Performed By: #### U MICAO, UAX ####[address] [place] [address] Lab Director: Eder Herrera MD Spec. [place],Ur <1.005 Low 1.010-1.020 [facility] Comment on above: Performed By: #### U SHAWN, UAX ####[facility] [place] [address] lab Director: Eder Herrera MD Urobilinogen,Ur Normal Normal 0.0-1.0 [facility] Comment on above: Performed By: #### U SHAWN, UAX ####[facility] [place] [address] lab Director: Eder Herrera MD Urinalysis with Reflex to Cu ltureon 02-24-2024 Bilirubin Ql (U) Negative NEGATIVE [facility] Clarity (U) Clear Clear [facility] Color (U) Yellow Yellow [facility] Glucose Test strip (U) [Mass/Vol] 3+ Abnormal NEGATIVE mg/dL [facility] Hemoglobin Auto test strip Ql (U) Negative NEGATIVE [facility] Ketones (U) [Mass/Vol] Negative NEGAT PAO mg/dL [facility] Leukocyte esterase Test strip Ql (U) Negative NEGATIVE [facility] Nitrite Ql (U) Negative NEGATIVE [facility] pH (U) 6.0 [pH] 5.0 - 9.0 [facility] Protein (U) [Mass/Vol] Negative NEGAT PAO mg/dL [facility] Specific gravity (U) [Rel density] Low 1.010 - 1.020 [facility] Urobilinogen Qn (U) Normal 0.0 - 1. 0 EU/dL [facility] Urinalysis,Microon 4 Bacteria TRACE Abnormal NONE [facility] Comment on above: Performed By: #### U SHAWN UAX ####[facility] [place] [address] lab Director: Eder Herrera MD Epithelial cells LM Ql (Urine sed) 0 TO 2 Normal 0-5 [facility] Comment on above: Performed By: #### U SHAWN UAX ####[facility] [place] , [place] [id number] lab Director: Eder Herrera MD Urine RBC's 0 TO 2 Normal 0-2 [facility] Comment on above: Performed By: #### U MICAO, UAX ####[facility] , [place] [address] lab Director: Eder Herrera MD Urine WBC's 0 TO 2 Normal 0-5 [facility] Comment on above: Performed By: #### U MICAO, UAX ####[facility] [place] [address] lab Director: Eder Herrera MD XR FOOT LEFT (MIN 3 VIEWS)on 02-24-2024 XR FOOT LEFT (MIN 3 VIEWS) [facility] XR FOOT RIGHT (MIN 3 VIEWS)o n 02-24-2024 XR FOOT RIGHT (MIN 3 VIEWS) Normal [facility] XR Foot - left 3 [facility] Study observation (narrative) [facility] XR Foot - right 3 [facility]iology Study observation (narrative) [facility] XR TIBIA FIBULA LEFT (2 VIEW S)on 02-24-2024 XR TIBIA FIBULA LEFT (2 VIEWS) [facility] XR TIBIA FIBULA RIGHT (2 VIE WS)on 02-24-2024 XR TIBIA FIBULA RIGHT (2 VIEWS) [facility] XR Tibia and Fibula - left 2 [facility] 02-24-2024 Radiology Study observation (narrative) [facility] XR Tibia and Fibula - right 2 [facility] 02-24-2024 Radiology Study observation (narrative) [facility] Basic Metabolic Panelon 09- Anion gap [Moles/Vol] 13 mmol/L 9 - 16 mmol/L [facility] Calcium [Mass/Vol] 8.9 mg/dL 8.6 - 10. 4 mg/dL [facility] Chloride [Moles/Vol] 101 mmol/L 98 - 10 7 mmol/L [facility] CO2 [Moles/Vol] 25 mmol/L 20 - 31 mmol/L [facility] Creatinine [Mass/Vol] 1.6 mg/dL High 0.70 - 1.20 mg/dL [facility] Yuliet [place] Rate 49 Low - [facility] Comment on above: These results are not intended for use in patients <18 years of age. eGFR results are calculated without a race factor using the 2020 CKD-EPI equation. Careful clinical correlation is recommended, particularly when comparing to results calculated using previous equations. The CKD-EPI equation is less accurate in patients with extremes of muscle mass, extra-renal metabolism of creatine, excessive creatine ingestion, or following therapy that affects renal tubular secretion. Glucose [Mass/Vol] 220 mg/dL High 74 - 99 mg/dL [facility] Potassium [Moles/Vol] 4.4 mmol/L 3.7 - 5.3 mmol/L [facility] Sodium [Moles/Vol] 139 mmol/L 136 - 145 mmol/L [facility] Urea nitrogen [Mass/Vol] 33 mg/dL High 8 - 23 mg/dL [facility] Urea nitrogen/Creatinine [Mass ratio] 21 mg/mg High 9 - 20 [facility] Basic Metabolic Profon 02-08 Anion gap [Moles/Vol] 13 mmol/L Normal -16 [facility] Comment on above: Performed By: #### B MP, CDP, CRP ####[facility] [place], [place] [id number] Lab Director: Eder Herrera MD#### GLYHGB ####[facility] [address] [place], [place] [address] Lab Director: Jimenez Pruett MD BUN/CRE Ratio 21 High - [facility] Comment on above: Performed By: #### B MP, CDP, CRP ####[facility] [place], [place] [address] Lab Director: Eder Herrera MD#### GLYHGB ####[facility] [address] [place] [address] Lab Director: Jimenez Pruett MD Calcium [Mass/Vol] 8.9 mg/dL Normal 8.6-10.4 [facility] Comment on above: Performed By: #### B MP, CDP, CRP ####[address] [place] [address] Lab Director: Eder Herrera MD#### GLYHGB ####[place] [place], [place] [phone] Director: Jimenez Pruett MD Chloride [Moles/Vol] 101 mmol/L Normal 98-107 [facility] Comment on above: Performed By: #### B MP, CDP, CRP ####[address] [place], [place] [address] Lab Director: Eder Herrera MD#### GLYHGB ####[address] [phone] Director: Jimenez Pruett MD CO2 [Moles/Vol] 25 mmol/L Normal 20-31 [facility] Comment on above: Performed By: #### B MP, CDP, CRP ####[address] [place] [address] Lab Director: Eder Herrera MD#### GLYHGB ####[address] [address] Lab Director: Jimenez Pruett MD Creatinine [Mass/Vol] 1.6 mg/dL High 0.70-1.20 [facility] Comment on above: Performed By: #### B MP, CDP, CRP ####[address] [place], [place] [phone] Director: Eder Herrera MD#### GLYHGB ####[facility] [place] [address] Lab Director: Jimenez Pruett MD GFR/1.73 sq M.predicted among non-blacks MDRD (S/P/Bld) [Vol rate/Area] 49 mL/min/{1.73_m2} Low >60 [facility] Comment on above: Result Comment: Thes e results are not intended for use in patients <18 years of age.eGFR results are calculated without a race factor using the 2020 CKD-EPI equation.Careful clinical correlation is recommended, particularly when comparing to results calculated using previous equations.The CKD-EPI equation is less accurate in patients with extremes of muscle mass, extra-renal metabolism of creatine, excessive creatine ingestion, or following therapy that affects renal tubular secretion. Performed By: #### B MEHUL CDP, CRP ####[address] [place] [id number] Lab Director: Eder Herrera MD#### GLYHGB ####[address] [phone] Lab Director: Jimenez Pruett MD Glucose [Mass/Vol] 220 mg/dL High 74-99 [facility] Comment on above: Performed By: #### B MEHUL CDP, CRP ####[address] [place] [address]6783 Lab Director: Eder Herrera MD#### GLYHGB ####[address] [phone] Lab Director: Jimenez Pruett MD Potassium [Moles/Vol] 4.4 mmol/L Normal 3.7-5.3 [facility] Comment on above: Performed By: #### B MEHUL CDP, CRP ####[address] [place] [address]83 Lab Director: Eder Herrera MD#### GLYHGB ####[address] [place] [address] Lab Director: Jimenez Pruett MD Sodium [Moles/Vol] 139 mmol/L Normal 136-145 [facility] Comment on above: Performed By: #### B MP, CDP, CRP ####[facility] , [place] [phone] Lab Director: Eder Herrera MD#### GLYHGB ####[facility] [address] [place], [place] [address]8 Lab Director: Jimenez Pruett MD Urea nitrogen [Mass/Vol] 33 mg/dL High 8-23 [facility] Comment on above: Performed By: #### B MP, CDP, CRP ####[address] [place], [place] [address] Lab Director: Eder Herrera MD#### GLYHGB ####[address] [place], [place] [phone] Lab Director: Jimenez Pruett MD C-Reactive Proteinon 024 CRP High sensitivity method [Mass/Vol] 7.4 mg/L High 0.0 - 5.0 mg/L [facility] CRP [Mass/Vol] 7.4 mg/L High 0.0-5.0 [facility] Comment on above: Performed By: #### B MP, CDP, CRP ####[address] [place], [place] [address] Lab Director: Eder Herrera MD#### GLYHGB ####[facility] [address] [place] [address] Lab Director: Jimenez Pruett MD CBC with Auto Differentialon 02-09-2024 Basophils (Bld) [#/Vol] 0.03 10*3/uL [facility] Basophils/100 WBC (Bld) 1 % 0 - 2 % [facility] Eosinophils (Bld) [#/Vol] 0.07 10*3/uL [facility] Eosinophils/100 WBC (Bld) 1 % 1 - 4 % [facility] Erythrocyte distribution width (RBC) [Ratio] 12.5 % 11.8 - 14.4 % [facility] Hematocrit (Bld) [Volume fraction] 40.5 % Low 40.7 - 50.3 % [facility] Hemoglobin (Bld) [Mass/Vol] 13.2 g/dL 13.0 - 17.0 g/dL [facility] Immature granulocytes (Bld) [#/Vol] [facility] Immature granulocytes/100 WBC (Bld) 0 % 0 [facility] Interpretation and review of laboratory results Abnormal [facility] Lymphocytes/100 WBC (Bld) 27 % 24 - 43 % [facility] Lymphocytes/100 WBC (Bld) 1.64 % [facility] MCH (RBC) [Entitic mass] 29.2 pg 25.2 - 33.5 pg [facility] MCHC (RBC) [Mass/Vol] 32.6 g/dL 28.4 - 34.8 g/dL [facility] MCV (RBC) [Entitic vol] 89.6 fL 82.6 - 102.9 fL [facility] Monocytes/100 WBC (Bld) 11 % 3 - 12 % [facility] Monocytes/100 WBC (Bld) 0.64 % B ON [facility] Neutrophils/100 WBC (Bld) 60 % 36 - 65 % [facility] Nucleated RBC/100 WBC (Bld) [Ratio] 0.0 % 0.0 per 100 WBC [facility] Platelet mean volume (Bld) [Entitic vol] 11.2 fL 8.1 - 13.5 fL [facility] Platelets (Bld) [#/Vol] 259 10*3/uL [facility] RBC (Bld) [#/Vol] 4.52 10*6/uL 4.21 - 5.7 7 m/uL [facility] Segmented neutrophils/100 WBC (Bld) 3.61 % [facility] WBC other (Bld) [#/Vol] 6.0 B ON [facility] CBC with Diffon 02-09-2024 Abs. Basophil 0.03 k/uL Normal 0.00-0.20 [facility] Comment on above: Performed By: #### B MP, CDP, CRP ####[address] [place] [id number] Lab Director: Eder Herrera MD#### GLYHGB ####[address] [phone] Director: Jimenez Pruett MD Abs.Imm.Granulocyte <0.03 Normal 0.00-0.30 [facility] Comment on above: Performed By: #### B MP, CDP, CRP ####[address] [place], [place] [address])[phone] Director: Eder Herrera MD#### GLYHGB ####[address] [phone] Director: Jimenez Pruett MD Abs.Neutrophil (Seg) 3.61 k/uL Normal 1.50-8.10 [facility] Comment on above: Performed By: #### B MP, CDP, CRP ####[address] [place], [place] [address])[phone] Director: Eder Herrera MD#### GLYHGB ####[address] [phone] Director: Jimenez Pruett MD Basophils/100 WBC (Bld) 1 % Normal 0-2 M [facility] Comment on above: Performed By: #### B MP, CDP, CRP ####[address] [place] [address] Lab Director: Eder Herrera MD#### GLYHGB ####[address] [phone] Director: Jimenez Pruett MD Eosinophils (Bld) [#/Vol] 0.07 10*3/uL Normal 0.00-0.44 [facility] Comment on above: Performed By: #### B MP, CDP, CRP ####[facility] [place] , [place] [id number] Lab Director: Eder Herrera MD#### GLYHGB ####[address] [place], [place] [phone] Lab Director: Jimenez Pruett MD Eosinophils/100 WBC (Bld) 1 % Normal 1-4 [facility] Comment on above: Performed By: #### B MP, CDP, CRP ####[facility] [place] , [place] [phone] Lab Director: Eder Herrera MD#### GLYHGB ####[address] [address] Lab Director: Jimenez Pruett MD Erythrocyte distribution width (RBC) [Ratio] 12.5 % Normal 11.8-14.4 [facility] Comment on above: Performed By: #### B MP, CDP, CRP ####[facility] [place] [address] Lab Director: Eder Herrera MD#### GLYHGB ####[address] [address] Lab Director: Jimenez Pruett MD Hematocrit (Bld) [Volume fraction] 40.5 % Low 40.7-50.3 [facility] Comment on above: Performed By: #### B MP, CDP, CRP ####[address] , [place] [phone] Lab Director: Eder Herrera MD#### GLYHGB ####[address] [place] [address] Lab Director: Jimenez Pruett MD Hemoglobin (Bld) [Mass/Vol] 13.2 g/dL Normal 13.0-17.0 [facility] Comment on above: Performed By: #### B MP, CDP, CRP ####[address] , [place] [phone] Director: Eder Herrera MD#### GLYHGB ####[address] [place], [place] [phone] Director: Jimenez Pruett MD Immature granulocytes/100 WBC (Bld) 0 % Normal 0 [facility] Comment on above: Performed By: #### B MP, CDP, CRP ####[address] [place], [place] [phone] Director: Eder Herrera MD#### GLYHGB ####[address] [place], [place] [phone] Director: Jimenez Pruett MD Lymphocytes (Bld) [#/Vol] 1.64 10*3/uL Normal 1.10-3.70 [facility] Comment on above: Performed By: #### B MP, CDP, CRP ####[address] , [place] [phone] Director: Eder Herrera MD#### GLYHGB ####[address] [phone] Director: Jimenez Pruett MD Lymphocytes/100 WBC (Bld) 27 % Normal 24-43 [facility] Comment on above: Performed By: #### B MP, CDP, CRP ####[address] [place] [phone] Director: Eder Herrera MD#### GLYHGB ####[address] [place], [place] [phone] Director: Jimenez Pruett MD MCH (RBC) [Entitic mass] 29.2 pg Normal 25.2-33.5 [facility] Comment on above: Performed By: #### B MP, CDP, CRP ####[address] [place] [address] Lab Director: Eder Herrera MD#### GLYHGB ####[address] [place], [place] [phone] Director: Jimenez Pruett MD MCHC (RBC) [Mass/Vol] 32.6 g/dL Normal 28.4-34.8 [facility] Comment on above: Performed By: #### B MP, CDP, CRP ####[address] [place], [place] [phone] Lab Director: Eder Herrera MD#### GLYHGB ####[address] [address] Lab Director: Jimenez Pruett MD MCV (RBC) [Entitic vol] 89.6 fL Normal 82.6-102.9 [facility] Comment on above: Performed By: #### B MP, CDP, CRP ####[address] [place], [place] 4766983 Lab Director: Eder Herrera MD#### GLYHGB ####[address] [phone] Director: Jimenez Pruett MD Monocytes (Bld) [#/Vol] 0.64 10*3/uL Normal 0.10-1.20 [facility] Comment on above: Performed By: #### B MP, CDP, CRP ####[address] [place], [place] 4361183 Lab Director: Eder Herrera MD#### GLYHGB ####[address] [place] [address] Lab Director: Jimenez Pruett MD Monocytes/100 WBC (Bld) 11 % Normal 3-12 M [facility] Comment on above: Performed By: #### B MP, CDP, CRP ####[address] , [place] [phone] Lab Director: Eder Herrera MD#### GLYHGB ####[address] [place] [address] Lab Director: Jimenez Pruett MD Neutrophil (Seg) 60 % Normal 36-65 [facility] Comment on above: Performed By: #### B MP, CDP, CRP ####[address] [place] [address] Lab Director: Eder Herrera MD#### GLYHGB ####[address] [address] Lab Director: Jimenez Pruett MD NRBC Automated 0.0 per 100 WBC Normal 0.0 [facility] Comment on above: Performed By: #### B MP, CDP, CRP ####[address] [place] [address] Lab Director: Eder Herrera MD#### GLYHGB ####[address] [address] Lab Director: Jimenez Pruett MD Platelet mean volume (Bld) [Entitic vol] 11.2 fL Normal 8.1-13.5 [facility] Comment on above: Performed By: #### B MP, CDP, CRP ####[address] , [place] [phone] Lab Director: Eder Herrera MD#### GLYHGB ####[address] [address] Lab Director: Jimenez Pruett MD Platelets (Bld) [#/Vol] 259 10*3/uL Normal 138-453 [facility] Comment on above: Performed By: #### B MP, CDP, CRP ####[address] , [place] [phone] Lab Director: Eder Herrera MD#### GLYHGB ####[address] [place] [address] Lab Director: Jimenez Pruett MD RBC (Bld) [#/Vol] 4.52 10*6/uL Normal 4.21-5.77 [facility] Comment on above: Performed By: #### B MP, CDP, CRP ####[address] , [place] [phone] Lab Director: Eder Herrera MD#### GLYHGB ####[address] [place] [address] Lab Director: Jimenez Pruett MD WBC (Bld) [#/Vol] 6.0 10*3/uL Normal 3.5-11.3 [facility] Comment on above: Performed By: #### B MEHUL, CDP, CRP ####[address] , [place] [phone] Lab Director: Eder Herrera MD#### GLYHGB ####[address] [place] [address] Lab Director: Jimenez Pruett MD Hemoglobin A1Con 02-09-2024 Average glucose Estimated from glycated hemoglobin (Bld) [Mass/Vol] 166 mg/dL [facility] Comment on above: The ADA and AACC rec ommend providing the estimated average glucose result to permit better patient understanding of their HBA1c result. HbA1c (Bld) [Mass fraction] 7.4 % High 4.0 - 6.0 % [facility] Interpretation and review of laboratory results Abnormal [facility] Glucose [Mass/Vol] 166 mg/dL Normal [facility] Comment on above: Result Comment: The ADA and AACC recommend providing the estimated average glucose result to permit better patient understanding of their HBA1c result. Performed By: #### B MP, CDP, CRP ####[facility] [place], [place] [id number] Lab Director: Eder Herrera MD#### GLYHGB ####[facility] [address] [place], [place] [id number] Lab Director: Jimenez Pruett MD HbA1c (Bld) [Mass fraction] 7.4 % High 4.0-6.0 [facility] Comment on above: Performed By: #### B MP, CDP, CRP ####[facility] [place], [place] 1006083 lab Director: Eder Herrera MD#### GLYHGB ####[facility] [address] [place], [place] [id number] lab Director: Jimenez Pruett MD No Panel Informationon 02-08 Interpretation and review of laboratory results Abnormal [facility] Basic Metabolic Panelon 07-2 Anion gap [Moles/Vol] 9 mmol/L 9 - 17 mmol/L [facility] Calcium [Mass/Vol] 9.5 mg/dL 8.6 - 10. 4 mg/dL [facility] Chloride [Moles/Vol] 109 mmol/L High 98 - 10 7 mmol/L [facility] CO2 [Moles/Vol] 22 mmol/L 20 - 31 mmol/L [facility] Creatinine [Mass/Vol] 1.6 mg/dL High 0.7 - 1.2 mg/dL [facility] Est, Glom Filt Rate 48 Low - PINF [facility] Comment on above: These results are not intended for use in patients <18 years of age. eGFR results are calculated without a race factor using the 2020 CKD-EPI equation. Careful clinical correlation is recommended, particularly when comparing to results calculated using previous equations. The CKD-EPI equation is less accurate in patients with extremes of muscle mass, extra-renal metabolism of creatine, excessive creatine ingestion, or following therapy that affects renal tubular secretion. Glucose [Mass/Vol] 111 mg/dL High 70 - 99 mg/dL [facility] Interpretation and review of laboratory results Abnormal [facility] Potassium [Moles/Vol] 4.1 mmol/L 3.7 - 5.3 mmol/L [facility] Sodium [Moles/Vol] 140 mmol/L 135 - 144 mmol/L [facility] Urea nitrogen [Mass/Vol] 30 mg/dL High 8 - 23 mg/dL [facility] Basic Metabolic Profon 12-20 Anion gap [Moles/Vol] 9 mmol/L Normal 9-17 [facility] [facility] Comment on above: Performed By: #### B MP #### [place] [address] Data Entry Technician: Emiliano Hurtado MD Calcium [Mass/Vol] 9.5 mg/dL Normal 8.6-10.4 [facility] Comment on above: Performed By: #### B MP #### [place] [address] Data Entry Technician: Emiliano Hurtado MD Chloride [Moles/Vol] 109 mmol/L High 98-107 [facility] Comment on above: Performed By: #### B MP #### [place] [address] Data Entry Technician: Emiliano Hurtado MD CO2 [Moles/Vol] 22 mmol/L Normal 20-31 [facility] Comment on above: Performed By: #### B MP #### [place] [id number] Data Entry Technician: Emiliano Hurtado MD Creatinine [Mass/Vol] 1.6 mg/dL High 0.7-1.2 [facility] Comment on above: Performed By: #### B MP #### [place] [id number] Data Entry Technician: Emiliano Hurtado MD GFR/1.73 sq M.predicted among non-blacks MDRD (S/P/Bld) [Vol rate/Area] 48 mL/min/{1.73_m2} Low >60 [facility] Comment on above: Result Comment: These results are not intended for use in patients <18 years of age. eGFR results are calculated without a race factor using the 2020 CKD-EPI equation. Careful clinical correlation is recommended, particularly when comparing to results calculated using previous equations. The CKD-EPI equation is less accurate in patients with extremes of muscle mass, extra-renal metabolism of creatine, excessive creatine ingestion, or following therapy that affects renal tubular secretion. Performed By: #### B MP #### [place] [address] Data Entry Technician: Emiliano Hurtado MD Glucose [Mass/Vol] 111 mg/dL High 70-99 [facility] Comment on above: Performed By: #### B MP #### [place] [address] Data Entry Technician: Emiliano Hurtado MD Potassium [Moles/Vol] 4.1 mmol/L Normal 3.7-5.3 [facility] Comment on above: Performed By: #### B MP #### [place] [address] Data Entry Technician: Emiliano Hurtado MD Sodium [Moles/Vol] 140 mmol/L Normal 135-144 [facility] Comment on above: Performed By: #### B MP #### [place] [address] Data Entry Technician: Emiliano Hurtado MD Urea nitrogen [Mass/Vol] 30 mg/dL High 8-23 [facility] Comment on above: Performed By: #### B MP #### [address] [place] [address] Data Entry Technician: Emiliano Hurtado MD Basic Metabolic Panelon 10-23 Anion gap [Moles/Vol] 10 mmol/L 9 - 17 mmol/L [facility] Calcium [Mass/Vol] 10.1 mg/dL 8.6 - 10. 4 mg/dL [facility] Chloride [Moles/Vol] 99 mmol/L 98 - 10 7 mmol/L [facility] CO2 [Moles/Vol] 28 mmol/L 20 - 31 mmol/L [facility] Creatinine [Mass/Vol] 1.6 mg/dL High 0.7 - 1.2 mg/dL [facility] EstYuliett Rate 48 Low - [facility] Comment on above: These results are not intended for use in patients <18 years of age. eGFR results are calculated without a race factor using the 2020 CKD-EPI equation. Careful clinical correlation is recommended, particularly when comparing to results calculated using previous equations. The CKD-EPI equation is less accurate in patients with extremes of muscle mass, extra-renal metabolism of creatine, excessive creatine ingestion, or following therapy that affects renal tubular secretion. Glucose [Mass/Vol] 132 mg/dL High 70 - 99 mg/dL [facility] Potassium [Moles/Vol] 4.7 mmol/L 3.7 - 5.3 mmol/L [facility] Sodium [Moles/Vol] 137 mmol/L 135 - 144 mmol/L [facility] Urea nitrogen [Mass/Vol] 29 mg/dL High 8 - 23 mg/dL [facility] Urea nitrogen/Creatinine [Mass ratio] 18 mg/mg 9 - 20 [facility] Brain Natriuretic Peptideon 11-11-2023 Natriuretic peptide B (Bld) [Mass/Vol] 681 pg/mL High NINF - 300 pg/mL [facility] Comment on above: An age-independent cutoff point of 300 pg/ml has a 98% negative predictive value excluding acute heart failure. CBC with Auto Differentialon 11-11-2023 Basophils (Bld) [#/Vol] 0.08 10*3/uL [facility] Basophils/100 WBC (Bld) 1 % 0 - 2 % B ON [facility] Eosinophils (Bld) [#/Vol] 0.07 10*3/uL [facility] Eosinophils/100 WBC (Bld) 1 % 1 - 4 % [facility] Erythrocyte distribution width (RBC) [Ratio] 12.2 % 11.8 - 14.4 % [facility] Hematocrit (Bld) [Volume fraction] 38.3 % Low 40.7 - 50.3 % [facility] Hemoglobin (Bld) [Mass/Vol] 12.6 g/dL Low 13.0 - 17.0 g/dL [facility] Immature granulocytes (Bld) [#/Vol] 0.03 10*3/uL [facility] Immature granulocytes/100 WBC (Bld) 0 % 0 [facility] Interpretation and review of laboratory results Abnormal [facility] Lymphocytes/100 WBC (Bld) 28 % 24 - 43 % [facility] Lymphocytes/100 WBC (Bld) 1.92 % [facility] MCH (RBC) [Entitic mass] 29.5 pg 25.2 - 33.5 pg [facility] MCHC (RBC) [Mass/Vol] 32.9 g/dL 28.4 - 34.8 g/dL [facility] MCV (RBC) [Entitic vol] 89.7 fL 82.6 - 102.9 fL [facility] Monocytes/100 WBC (Bld) 10 % 3 - 12 % B ON [facility] Monocytes/100 WBC (Bld) 0.69 % [facility] Neutrophils/100 WBC (Bld) 60 % 36 - 65 % [facility] Nucleated RBC/100 WBC (Bld) [Ratio] 0.0 % 0.0 per 100 WBC [facility] Platelet mean volume (Bld) [Entitic vol] 10.7 fL 8.1 - 13.5 fL [facility] Platelets (Bld) [#/Vol] 406 10*3/uL [facility] RBC (Bld) [#/Vol] 4.27 10*6/uL 4.21 - 5.7 7 m/uL [facility] Segmented neutrophils/100 WBC (Bld) 4.06 % [facility] WBC other (Bld) [#/Vol] 6.9 B ON [facility] Comprehensive Metabolic Pane julio césar 11-11-2023 Albumin [Mass/Vol] 3.8 g/dL 3.5 - 5.2 g/dL [facility] Albumin/Globulin [Mass ratio] 1.1 {ratio} 1.0 - 2.5 [facility] ALP [Catalytic activity/Vol] 86 U/L 40 - 129 U/L [facility] ALT [Catalytic activity/Vol] 19 U/L 5 - 41 U/L [facility] Anion gap [Moles/Vol] 10 mmol/L 9 - 17 mmol/L [facility] AST [Catalytic activity/Vol] 15 U/L NINF - 40 U/L [facility] Bilirubin [Mass/Vol] 0.2 mg/dL Low 0.3 - 1 .2 mg/dL [facility] Calcium [Mass/Vol] 10.1 mg/dL 8.6 - 10. 4 mg/dL [facility] Chloride [Moles/Vol] 101 mmol/L 98 - 10 7 mmol/L [facility] CO2 [Moles/Vol] 27 mmol/L 20 - 31 mmol/L [facility] Creatinine [Mass/Vol] 1.7 mg/dL High 0.7 - 1.2 mg/dL [facility] Est, Glom Filt Rate 44 Low - [facility]F [facility] Comment on above: These results are not intended for use in patients <18 years of age. eGFR results are calculated without a race factor using the 2020 CKD-EPI equation. Careful clinical correlation is recommended, particularly when comparing to results calculated using previous equations. The CKD-EPI equation is less accurate in patients with extremes of muscle mass, extra-renal metabolism of creatine, excessive creatine ingestion, or following therapy that affects renal tubular secretion. Glucose [Mass/Vol] 130 mg/dL High 70 - 99 mg/dL [facility] Interpretation and review of laboratory results Abnormal [facility] Potassium [Moles/Vol] 4.4 mmol/L 3.7 - 5.3 mmol/L [facility] [employer] Protein [Mass/Vol] 7.2 g/dL 6.4 - 8.3 g/dL [facility] [employer] [employer] Sodium [Moles/Vol] 138 mmol/L 135 - 144 mmol/L [facility] Urea nitrogen [Mass/Vol] 29 mg/dL High 8 - 23 mg/dL [facility] [employer] Urea nitrogen/Creatinine [Mass ratio] 17 mg/mg 9 - 20 [facility] [employer] Hemoglobin A1Con 11-11-2023 Average glucose Estimated from glycated hemoglobin (Bld) [Mass/Vol] 177 mg/dL [facility] [employer] Comment on above: The ADA and AACC rec ommend providing the estimated average glucose result to permit better patient understanding of their HBA1c result. HbA1c (Bld) [Mass fraction] 7.8 % High 4.0 - 6.0 % [facility] [employer] Interpretation and review of laboratory results Abnormal [facility] [employer] Lipid Panelon 11-11-2023 Cholesterol [Mass/Vol] 146 mg/dL 0 - 1 99 mg/dL [facility] Comment on above: Cholesterol Guidelines: <200 Desirable 200-240 Borderline >240 Undesirable Cholesterol in HDL [Mass/Vol] 24 mg/dL Low 40 - PINF mg/dL [facility] Comment on above: HDL Guidelines: <40 Undesirable 40-59 Borderline >59 Desirable Cholesterol in LDL [Mass/Vol] 78 mg/dL 0 - 100 mg/dL [facility] Comment on above: LDL Guidelines: <100 Desirable 100-129 Near to/above Desirable 130-159 Borderline >159 Undesirable Direct (measured) LDL and calculated LDL are not interchangeable tests. Cholesterol in VLDL [Mass/Vol] 44 mg/dL [facility] Cholesterol.total/Shi sterol in HDL [Mass ratio] 6.0 {ratio} [facility] [employer] Interpretation and review of laboratory results Abnormal [facility] Triglyceride [Mass/Vol] 222 mg/dL High NINF - 150 mg/dL [facility] Comment on above: Triglyceride Guidelines: <150 Desirable 150-199 Borderline 200-499 High >499 Very high Based on AHA Guidelines for fasting triglyceride, February 2012. [facility] No Panel Informationon 11-10 Interpretation and review of laboratory results Abnormal [facility] Basic Metabolic Panelon 10-23 Anion gap [Moles/Vol] 11 mmol/L 9 - 17 mmol/L [facility] Calcium [Mass/Vol] 9.9 mg/dL 8.6 - 10. 4 mg/dL [facility] Chloride [Moles/Vol] 101 mmol/L 98 - 10 7 mmol/L [facility] CO2 [Moles/Vol] 22 mmol/L 20 - 31 mmol/L [facility] Creatinine [Mass/Vol] 1.4 mg/dL High 0.7 - 1.2 mg/dL [facility] Est, Yuliet Colónt Rate 56 Low - PINF [facility] Comment on above: These results are not intended for use in patients <18 years of age. eGFR results are calculated without a race factor using the 2020 CKD-EPI equation. Careful clinical correlation is recommended, particularly when comparing to results calculated using previous equations. The CKD-EPI equation is less accurate in patients with extremes of muscle mass, extra-renal metabolism of creatine, excessive creatine ingestion, or following therapy that affects renal tubular secretion. Glucose [Mass/Vol] 224 mg/dL High 70 - 99 mg/dL [facility] Potassium [Moles/Vol] 4.7 mmol/L 3.7 - 5.3 mmol/L [facility] Sodium [Moles/Vol] 134 mmol/L Low 135 - 144 mmol/L [facility] Urea nitrogen [Mass/Vol] 25 mg/dL High 8 - 23 mg/dL [facility] Urea nitrogen/Creatinine [Mass ratio] 18 mg/mg 9 - 20 [facility] Brain Natriuretic Peptideon 11-03-2023 Natriuretic peptide B (Bld) [Mass/Vol] 2818 pg/mL High NINF - 300 pg/mL [facility] Comment on above: An age-independent cutoff point of 300 pg/ml has a 98% negative predictive value excluding acute heart failure. Glucose, Whole Bloodon 11-02 Glucose [Mass/Vol] 196 mg/dL High 74 - 100 mg/dL [facility] Interpretation and review of laboratory results Abnormal [facility] No Panel Informationon 11-02 Interpretation and review of laboratory results Abnormal [facility] Portable XR Chest AP single viewon 11-03-2023 Mild generalized ischial prominence favoring vascular congestion. Platelike subsegmental atelectasis left costophrenic angle. No focal consolidation. [facility] EXAMINATION: ONE XRAY VIEW OF THE CHEST 11/03/2023 8:18 am COMPARISON: 05/07/2023 HISTORY: ORDERING SYSTEM PROVIDED HISTORY: shortness of breath TECHNOLOGIST PROVIDED HISTORY: shortness of breath FINDINGS: Normal cardiomediastinal silhouette. Platelike subsegmental atelectasis left costophrenic angle. Mild generalized interstitial prominence likely from mild vascular congestion. No focal consolidation. No pleural effusion or pneumothorax. No acute bony abnormality. [facility] Adrian Gonzalez MD - 11/03/2023 EXAMINATION: ONE XRAY VIEW OF THE CHEST 11/03/2023 8:18 am COMPARISON: 05/07/2023 HISTORY: ORDERING SYSTEM PROVIDED HISTORY: shortness of breath TECHNOLOGIST PROVIDED HISTORY: shortness of breath FINDINGS: Normal cardiomediastinal silhouette. Platelike subsegmental atelectasis left costophrenic angle. Mild generalized interstitial prominence likely from mild vascular congestion. No focal consolidation. No pleural effusion or pneumothorax. No acute bony abnormality. IMPRESSION: Mild generalized ischial prominence favoring vascular congestion. Platelike subsegmental atelectasis left costophrenic angle. No focal consolidation. [facility] Radiology Study observation (narrative) [facility] Portable XR Chest AP single viewOrdered By: Adrian Gonzalez on 11-03-2023 [facility] Work Phone: Basic Metabolic Panelon 07-23 Anion gap [Moles/Vol] 10 mmol/L 9 - 17 mmol/L [facility] Calcium [Mass/Vol] 9.1 mg/dL 8.6 - 10. 4 mg/dL [facility] [facility] Chloride [Moles/Vol] 102 mmol/L 98 - 10 7 mmol/L [facility] CO2 [Moles/Vol] 28 mmol/L 20 - 31 mmol/L [facility] Creatinine [Mass/Vol] 1.5 mg/dL High 0.7 - 1.2 mg/dL [facility] GFR/1.73 sq M.predicted MDRD (S/P/Bld) [Vol rate/Area] 52 mL/min/{1.73_m2} Low - PINF [facility] Comment on above: These results are not intended for use in patients <18 years of age. eGFR results are calculated without a race factor using the 2020 CKD-EPI equation. Careful clinical correlation is recommended, particularly when comparing to results calculated using previous equations. The CKD-EPI equation is less accurate in patients with extremes of muscle mass, extra-renal metabolism of creatine, excessive creatine ingestion, or following therapy that affects renal tubular secretion. Glucose [Mass/Vol] 182 mg/dL High 70 - 99 mg/dL [facility] Interpretation and review of laboratory results Abnormal [facility] Potassium [Moles/Vol] 4.8 mmol/L 3.7 - 5.3 mmol/L [facility] Sodium [Moles/Vol] 140 mmol/L 135 - 144 mmol/L [facility] Urea nitrogen [Mass/Vol] 30 mg/dL High 8 - 23 mg/dL [facility] Urea nitrogen/Creatinine [Mass ratio] 20 mg/mg 9 - 20 [facility] CBCon 06-30-2023 Erythrocyte distribution width (RBC) [Ratio] 11.8 % 11.8 - 14.4 % [facility] Hematocrit (Bld) [Volume fraction] 39.1 % Low 40.7 - 50.3 % [facility] Hemoglobin (Bld) [Mass/Vol] 12.8 g/dL Low 13.0 - 17.0 g/dL [facility] Interpretation and review of laboratory results Abnormal [facility] MCH (RBC) [Entitic mass] 29.6 pg 25.2 - 33.5 pg [facility] MCHC (RBC) [Mass/Vol] 32.7 g/dL 28.4 - 34.8 g/dL [facility] MCV (RBC) [Entitic vol] 90.5 fL 82.6 - 102.9 fL [facility] Nucleated RBC/100 WBC (Bld) [Ratio] 0.0 % 0.0 per 100 WBC [facility] Platelet mean volume (Bld) [Entitic vol] 11.0 fL 8.1 - 13.5 fL [facility] Platelets (Bld) [#/Vol] 264 10*3/uL [facility] RBC (Bld) [#/Vol] 4.32 10*6/uL 4.21 - 5.7 7 m/uL [facility] WBC other (Bld) [#/Vol] 5.9 B ON [facility] Magnesiumon 06-30-2023 Magnesium [Mass/Vol] 1.9 mg/dL 1.6 - 2 .6 mg/dL [facility] Microscopic Urinalysison Epithelial cells LM.HPF (Urine sed) [#/Area] 0 TO 2 [facility] RBC LM.HPF (Urine sed) [#/Area] 0 TO 2 [facility] WBC LM.HPF (Urine sed) [#/Area] 0 TO 2 [facility] No Panel Informationon 06-30 [facility] PTH, [place] 06-30-2023 Interpretation and review of laboratory results Abnormal [facility] Parathyrin.intact [Mass/Vol] 117.9 pg/mL High 14.0 - 72.0 pg/mL [facility] Comment on above: SAMPLES FROM PATIENT S ROUTINELY RECEIVING HIGH DOSE BIOTIN THERAPY MAY SHOW FALSELY DEPRESSED RESULTS. ADDITIONAL INFORMATION MAY BE REQUIRED FOR DIAGNOSIS. [facility] Protein / creatinine ratio, urineon 06-30-2023 Creatinine (U) [Mass/Vol] 89.0 mg/dL 39.0 - 259.0 mg/dL [facility] Interpretation and review of laboratory results Abnormal [facility] Protein (U) [Mass/Vol] 48 mg/dL [facility] Comment on above: No normal range esta blished. Urine Total Protein Creatinine Ratio 0.54 High 0.00 - 0.20 [facility] Renal Function Panelon 06-30 Albumin [Mass/Vol] 4.0 g/dL 3.5 - 5.2 g/dL [facility] Anion gap [Moles/Vol] 10 mmol/L 9 - 17 mmol/L [facility] Calcium [Mass/Vol] 8.7 mg/dL 8.6 - 10. 4 mg/dL [facility] Chloride [Moles/Vol] 100 mmol/L 98 - 10 7 mmol/L [facility] CO2 [Moles/Vol] 25 mmol/L 20 - 31 mmol/L [facility] Creatinine [Mass/Vol] 1.4 mg/dL High 0.7 - 1.2 mg/dL [facility] GFR/1.73 sq M.predicted MDRD (S/P/Bld) [Vol rate/Area] 56 mL/min/{1.73_m2} Low - PINF [facility] Comment on above: These results are not intended for use in patients <18 years of age. eGFR results are calculated without a race factor using the 2020 CKD-EPI equation. Careful clinical correlation is recommended, particularly when comparing to results calculated using previous equations. The CKD-EPI equation is less accurate in patients with extremes of muscle mass, extra-renal metabolism of creatine, excessive creatine ingestion, or following therapy that affects renal tubular secretion. Glucose [Mass/Vol] 230 mg/dL High 70 - 99 mg/dL [facility] Interpretation and review of laboratory results Abnormal [facility] Phosphate [Mass/Vol] 2.5 mg/dL 2.5 - 4 .5 mg/dL [facility] Potassium [Moles/Vol] 4.3 mmol/L 3.7 - 5.3 mmol/L [facility] Sodium [Moles/Vol] 135 mmol/L 135 - 144 mmol/L [facility] Urea nitrogen [Mass/Vol] 33 mg/dL High 8 - 23 mg/dL [facility] Urea nitrogen/Creatinine [Mass ratio] 24 mg/mg High 9 - 20 [facility] Uric Acidon 06-30-2023 Urate [Mass/Vol] 6.8 mg/dL 3.4 - 7.0 mg/dL [facility] Urinalysis with Reflex to Cu ltureon 06-30-2023 Bilirubin Ql (U) Negative [facility]IVE [facility] Clarity (U) Clear Clear [facility] Color (U) Yellow Yellow [facility] Glucose Test strip (U) [Mass/Vol] 2+ Abnormal NEGATIVE mg/dL [facility] Hemoglobin Auto test strip Ql (U) TRACE Abnormal NEGATIVE [facility] Interpretation and review of laboratory results Abnormal [facility] Ketones (U) [Mass/Vol] Negative NEGAT PAO mg/dL [facility] Leukocyte esterase Test strip Ql (U) Negative NEGATIVE [facility] Nitrite Ql (U) Negative NEGATIVE [facility] pH (U) 6.0 [pH] 5.0 - 9.0 [facility] Protein (U) [Mass/Vol] 1+ Abnormal NEGAT PAO mg/dL [facility] Specific gravity (U) [Rel density] 1.015 1.010 - 1.020 [facility] Urobilinogen Qn (U) Normal 0.0 - 1. 0 EU/dL [facility] NM PARATHYORID W SPECTon No parathyroid adenoma localized. [facility] EXAMINATION: NUCLEAR MEDICINE PARATHYROID SCINTIGRAPHY WITH SPECT/CT. [...] focal areas of abnormal radiotracer activity identified. [facility] Carmen Carr MD - 01/15/2023 EXAMINATION: NUCLEAR [...] activity identified. IMPRESSION: No parathyroid adenoma localized. [facility] Radiology Study observation (narrative) [facility] NM PARATHYORID W SPECTOrdere d By: Carmen Carr on 01-15-2023 [facility] Work Phone: XR CHEST (2 VW)on 12-22-2022 No acute process. [facility] EXAMINATION: TWO XRAY VIEWS OF THE CHEST 12/22/2022 11:10 am COMPARISON: 06/05/2021 HISTORY: ORDERING SYSTEM PROVIDED HISTORY: Dyspnea on exertion TECHNOLOGIST PROVIDED HISTORY: dyspnea on exertion FINDINGS: The lungs are without acute focal process. There is no effusion or pneumothorax. The cardiomediastinal silhouette is stable. The osseous structures are stable. [facility] Francois De La Cruz MD - 12/22/2022 EXAMINATION: TWO XRAY VIEWS OF THE CHEST 12/22/2022 11:10 am COMPARISON: 06/05/2021 HISTORY: ORDERING SYSTEM PROVIDED HISTORY: Dyspnea on exertion TECHNOLOGIST PROVIDED HISTORY: dyspnea on exertion FINDINGS: The lungs are without acute focal process. There is no effusion or pneumothorax. The cardiomediastinal silhouette is stable. The osseous structures are stable. IMPRESSION: No acute process. [facility] Radiology Study observation (narrative) GALLO [employer] [facility] wripl XR CHEST (2 VW)Ordered By: Selena De La Cruz on 12-22-2022 [facility] Work Phone: A1C with Estimated Average Yifan rodríguez 11-06-2022 Glucose [Mass/Vol] 166 mg/dL Normal [facility] Comment on above: Result Comment: PERF ORMED BY: [place] [address] PATHOLOGIST DESIGN AGENT YURI ORTA M.D. Performed By: #### A 1C [facility] eA #### [address] HbA1c (Bld) [Mass fraction] 7.4 % High 4.3-5.6 [facility] Comment on above: Result Comment: Incr eased risk for diabetes: 5.7 - 6.4 diabetes: >6.4 glycemic control for adults with diabetes: <7.0 Performed By: #### A 1C [facility] eA #### [address] CBC AUTO DIFFon 10-20-2022 BASO # 0.0 103/ul Normal 0.0-0.1 [facility] Comment on above: Performed By: #### C BC #### [facility] [address] [place] [address] Dr. Robert Almendarez Basophils/100 WBC (Bld) 0.6 % Normal 0.2-2.0 [facility] Comment on above: Performed By: #### C BC #### [facility] [address] [place] [address] Dr. Robert Almendarez EO # 0.1 103/ul Normal 0.0-0.7 [facility] Comment on above: Performed By: #### C BC #### [facility] [address] [place] [address] Dr. Robert Almendarez Eosinophils/100 WBC (Bld) 1.4 % Normal 0.9-7.0 [facility] Comment on above: Performed By: #### C BC #### [facility] [address] [place] [address] Dr. Robert Almendarez Erythrocyte distribution width (RBC) [Ratio] 11.7 % Normal 11.0-15.0 [facility] Comment on above: Performed By: #### C BC #### [facility] [address] [place] [address] Dr. Robert Almendarez Hematocrit (Bld) [Volume fraction] 38.4 % Critically low 42.0-54.0 [facility] Comment on above: Performed By: #### C BC #### [facility] [address] [place] [address] Dr. Robert Almendarez Hemoglobin (Bld) [Mass/Vol] 12.7 g/dL Critically low 14.0-18.0 [facility] Comment on above: Performed By: #### C BC #### [facility] [address] [place] [address] Dr. Robert Almendarez IG # 0.02 10e3/ul Normal 0.00-0.03 [facility] Comment on above: Performed By: #### C BC #### [facility] [address] [place] [address] Dr. Robert Almendarez IG % 0.3 % Normal 0.0-0.5 [facility] Comment on above: Performed By: #### C BC #### [facility] [address] [place] [address] Dr. Robert Almendarez LYMPH # 1.4 103/ul Normal 1.2-3.8 [facility] Comment on above: Performed By: #### C BC #### [facility] [address] [place] [address] Dr. Robert Almendarez Lymphocytes/100 WBC (Bld) 21.2 % Normal 20.5-60.0 [facility] Comment on above: Performed By: #### C BC #### [facility] [address] [place] [address] Dr. Robert Almendarez MANUAL DIFF REQ NO Normal [facility] Comment on above: Performed By: #### C BC #### [facility] [address] [place] [address] Dr. Robert Almendarez MCH (RBC) [Entitic mass] 29.3 pg Normal 25.9-34.0 [facility] Comment on above: Performed By: #### C BC #### [facility] [address] [place] [address] Dr. Robert Almendarez MCHC (RBC) [Mass/Vol] 33.1 g/dL Normal 29.9-35.2 [facility] Comment on above: Performed By: #### C BC #### [facility] [address] [place] [address] Dr. Robert Almendarez MCV (RBC) [Entitic vol] 88.7 fL Normal 80.0-94.0 [facility] Comment on above: Performed By: #### C BC #### [facility] [address] [place] [address] Dr. Robert Almendarez MONO # 0.5 103/ul Normal 0.3-0.8 [facility] Comment on above: Performed By: #### C BC #### [facility] [address] [place] [address] Dr. Robert Almendarez Monocytes/100 WBC (Bld) 7.1 % Normal 1.7-12.0 [facility] Comment on above: Performed By: #### C BC #### [facility] [address] [place] [address] Dr. Robert Almendarez NEUT # 4.6 103/ul Normal 1.4-6.5 [facility] Comment on above: Performed By: #### C BC #### [facility] [address] [place] [address] Dr. Robert Almendarez Neutrophils/100 WBC (Bld) 69.4 % Normal 43.0-75.0 [facility] Comment on above: Performed By: #### C BC #### [facility] [address] [place] [address] Dr. Robert Almendarez Platelet mean volume (Bld) [Entitic vol] 10.7 fL Normal 9.5-13.5 [facility] Comment on above: Performed By: #### C BC #### [facility] [address] [address] [address] Robert Almendarez PLT 232 103/ul Normal 150-450 [facility] Comment on above: Performed By: #### C BC #### [facility] [address] [address] [address] Robert Almendarez RBC 4.33 106/ul Critically low 4.70-6.10 [facility] Comment on above: Performed By: #### C BC #### [facility] [id number] Robert Almendarez WBC 6.7 103/ul Normal 4.0-11.0 [facility] Comment on above: Performed By: #### C BC #### [facility] [address] [place] [address] ABD/PELVIS WO CONon 10-20 CT ABD/PELVIS WO CON CT ABD/PELVIS WO CO N, 10/20/2022 1:14 PM EDT INDICATION: UNSPECIFIED ABDOMINAL PAIN COMPARISON: Noncontrast CT scan of the abdomen and pelvis 10/13/2022, noncontrast CT scan of the abdomen and pelvis 09/21/2021. TECHNIQUE: Axial images of the abdomen and pelvis were obtained without IV contrast. Multiplanar reformatted images were generated and reviewed as needed. Dose reduction techniques were achieved by using automated exposure control and/or adjustment of mA and/or kV according to patient size and/or use of iterative reconstruction technique. FINDINGS: No consolidation or effusion. Calcified granuloma right middle lobe. Subsegmental atelectasis within the lingula. Cholelithiasis. The liver, pancreas, spleen and right adrenal are unremarkable on a non contrast scan. 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 No hydronephrosis or nephrolithiasis. Chronic bilateral perinephric fat stranding. No urolithiasis. The urinary bladder is collapsed around a Diaz catheter balloon. No significant perivesicular fat stranding. No aortic aneurysm. No bowel obstruction or acute focal inflammation. Small focus right retroperitoneal fluid, unchanged. No mesenteric or retroperitoneal lymphadenopathy. No acute fracture or dislocation. 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 IMPRESSION: 1. No hydronephrosis or nephrolithiasis. The urinary bladder is collapsed around a Diaz catheter balloon limiting evaluation. No gross findings of cystitis. 2. Cholelithiasis. Electronically authenticated by: REBEKAH THOMPSON Date: 2022-10-20 14:47 Normal [facility] CULTURE URINEon 10-20-2022 CULTURE URINE Culture Observations : NO GROWTH. Normal [facility] Comment on above: Performed By: #### P T, PTT #### [facility] [address] [place] [address] Dr. Robert Almendarez ER URINE PROFILEon 3 Bilirubin Ql (U) Negative Normal NEGATIVE [facility] Comment on above: Performed By: #### Fallon YAÑEZ UMICRO #### [facility] [address] [place] [address] Dr. Robert Almendarez Clarity (U) SL CLOUDY Abnormal CLEAR [facility] Comment on above: Performed By: #### Fallon YAÑEZ UMICRO #### [facility] [address] [place] [address] Dr. Robert Almendarez Color (U) RED Abnormal YELLOW [facility] Comment on above: Performed By: #### Fallon YAÑEZ UMICRO #### [facility] [address] [place] [address] Dr. Robert Almendarez ERUJazmine A micrscopic examination will be performed if indicated. Normal [facility] Comment on above: Performed By: #### Fallon YAÑEZ UMICRO #### [facility] [address] [place] [address] Dr. Robert Almendarez Glucose Ql (U) Negative Normal NEGATIVE [facility] Comment on above: Performed By: #### Fallon YAÑEZ UMICRO #### [facility] [address] [place] [address] Dr. Robert Almendarez Hemoglobin Ql (U) LARGE Abnormal NEGATIVE [facility] Comment on above: Performed By: #### Fallon YAÑEZ UMICRO #### [facility] [address] [place] [address] Dr. Robert Almendarez Ketones Ql (U) Negative Normal NEGATIVE [facility] Comment on above: Performed By: #### Fallon YAÑEZ UMICRO #### [facility] [address] [place] [address] Dr. Robert Almendarez LEUKOCYTES MODERATE Abnormal NEGATIVE [facility] Comment on above: Performed By: #### Fallon YAÑEZ UMICRO #### [facility] [address] [place] [address] Dr. Robert Almendarez Nitrite Ql (U) Unable to perform testing due to color interference. Abnormal NEGATIVE [facility] Comment on above: Performed By: #### Fallon YAÑEZ UMICRO #### [facility] [address] [place] [address] Dr. Robert Almendarez pH (U) 5.0 [pH] Normal 5-9 [facility] Comment on above: Performed By: #### Fallon YAÑEZ UMICRO #### [facility] [address] [place] [address] Dr. Robert Almendarez Protein (U) [Mass/Vol] 300 mg/dL Abnormal NEGAT PAO/ TRACE [facility] Comment on above: Performed By: #### Fallon YAÑEZ UMICRO #### [facility] [address] [place] [address] Dr. Robert Almendarez SPEC GRAVITY 1.015 Normal 1.005-<=1.[address] [facility] Comment on above: Performed By: #### Fallon YAÑEZ UMICRO #### [facility] [address] [place] [address] Dr. Robert Almendarez UR MICRO IND INDICATED Normal [facility] Comment on above: Performed By: #### Fallon YAÑEZ UMICRO #### [facility] [address] [place] [address] Dr. Roebrt Almendarez Urobilinogen Qn (U) 1.0 {Fabiana'U}/dL Normal 0.2 - 1. 0 [facility] Comment on above: Performed By: #### E MARIA C YAÑEZ #### [facility] [address] [address] [address] Robert Almendarez PROF 14(COMP METB)on 023 Albumin [Mass/Vol] 3.5 g/dL Normal 3.4-5.0 [facility] Comment on above: Performed By: #### C MP #### [facility] [address] [place] [address] Dr. Robert Almendarez Albumin/Globulin [Mass ratio] 0.9 {ratio} Normal [facility] Comment on above: Performed By: #### C MP #### [facility] [address] [place] [address] Dr. Robert Almendarez ALP [Catalytic activity/Vol] 78 U/L Normal 46-116 [facility] Comment on above: Performed By: #### C MP #### [facility] [address] [place] [address] Dr. Robert Almendarez ALT [Catalytic activity/Vol] 28 U/L Normal 16-63 [facility] Comment on above: Performed By: #### C MP #### [facility] [address] [place] [address] Dr. Robert Almendarez Anion gap [Moles/Vol] 14.1 mmol/L Normal [facility] Comment on above: Performed By: #### C MP #### [facility] [address] [place] [address] Dr. Robert Almendarez AST [Catalytic activity/Vol] 15 U/L Normal 15-37 [facility] Comment on above: Performed By: #### C MP #### [facility] [address] [place] [address] Dr. Robert Almendarez Bilirubin [Mass/Vol] 0.4 mg/dL Normal 0.2-1.0 [facility] Comment on above: Performed By: #### C MP #### [facility] [address] [place] [address] Dr. Robert Almendarez Calcium [Mass/Vol] 10.6 mg/dL Critically high 8.5-10.1 [facility] Comment on above: Performed By: #### C MP #### [facility] [address] [address] [address] Robert Almendarez Chloride [Moles/Vol] 100 mmol/L Normal 98-107 [facility] Comment on above: Performed By: #### C MP #### [facility] [address] [address] [address] Robert Almendarez CO2 [Moles/Vol] 25.4 mmol/L Normal 21.0-32.0 [facility] Comment on above: Performed By: #### C MP #### [facility] [address] [address] [address] Robert Almendarez Creatinine [Mass/Vol] 1.81 mg/dL Critically high 0.70-1.30 [facility] Comment on above: Performed By: #### C MP #### [facility] [address] [place] [address] Dr. Robert Almendarez EGFR-AF BOLIVIAN 46 mL/min/1.73m2 Critically low >=60 [facility] Comment on above: Performed By: #### C MP #### [facility] [address] [address] [address] Robert Almendarez EGFR-NON AF BOLIVIAN 38 mL/min/1.73m2 Critically low >=60 [facility] Comment on above: Performed By: #### C MP #### [facility] [address] [place] [address] Dr. Robert Almendarez Globulin (S) [Mass/Vol] 4.0 g/dL Normal [facility] Comment on above: Performed By: #### C MP #### [facility] [address] [address] [address] Robert Almendarez Glucose [Mass/Vol] 177 mg/dL Critically high 74-106 [facility] Comment on above: Performed By: #### C MP #### [facility] [address] [address] [address] Robert Almendarez Potassium [Moles/Vol] 4.5 mmol/L Normal 3.5-5.1 [facility] Comment on above: Performed By: #### C MP #### [facility] [address] [address] [address] Robert Almendarez Protein [Mass/Vol] 7.5 g/dL Normal 6.4-8.2 [facility] Comment on above: Performed By: #### C MP #### [facility] [address] [address] [address] Robert Almendarez Sodium [Moles/Vol] 135 mmol/L Critically low 136-145 [facility] Comment on above: Performed By: #### C MP #### [facility] [address] [address] [address] Robert Almendarez Urea nitrogen [Mass/Vol] 32.0 mg/dL Critically high 7.0-18.0 [facility] Comment on above: Performed By: #### C MP #### [facility] [address] [place] [address] Dr. Robert Almendarez Urea nitrogen/Creatinine [Mass ratio] 17.7 mg/mg Normal [facility] Comment on above: Performed By: #### C MP #### [facility] [address] [place] [address] Dr. Robert Almendarez TYPE AND SCREENon 10-20-2022 TYPE AND SCREEN Negative Normal [facility] Comment on above: Performed By: #### P T, PTT #### [facility] [address] [place] [address] Dr. Robert Almendarez URINE MICROSCOPIC ONLYon BACTERIA NONE SEEN Normal NONE SEEN [facility] Comment on above: Performed By: #### Fallon YAÑEZ UMICRO #### [facility] [address] [place] [address] Dr. Robert Almendarez Bacteria identified Cx Nom (U) NOT INDICATED Normal [facility] Comment on above: Performed By: #### E OTILIO UMICRO #### [facility] [address] [place] [address] Dr. Robert Almendarez CAST NONE SEEN Normal NONE SEEN [facility] Comment on above: Performed By: #### Fallon YAÑEZ UMICRO #### [facility] [address] [place] [address] Dr. Robert Almendarez Crystals LM Nom (Urine sed) NONE SEEN Normal NONE SEEN [facility] Comment on above: Performed By: #### JOSE HAYESRO #### [facility] [address] [place] [address] Dr. Robert Almendarez Epithelial cells LM Ql (Urine sed) NONE SEEN Normal NONE SEEN /RARE [facility] Comment on above: Performed By: #### Fallon YAÑEZ UMICRO #### [facility] [address] [place] [address] Dr. Robert Almendarez MUCOUS NONE SEEN Normal NONE SEEN [facility] Comment on above: Performed By: #### Fallon YAÑEZ UMFRANCESRO #### [facility] [address] [place] [address] Dr. Robert Almendarez RBC 75-100 Abnormal 0-2 [facility] Comment on above: Performed By: #### JOSE HAYESRO #### [facility] [address] [place] [address] Dr. Robert Almendarez WBC 10-[address] [facility] Comment on above: Performed By: #### JOSE HAYESRO #### [facility] [address] [place] [address] Dr. Robert Almendarez BNPon 10-13-2022 Natriuretic peptide B (Bld) [Mass/Vol] 473.0 pg/mL Normal <=900.0 [facility] Comment on above: Performed By: #### P T, PTT #### [facility] [address] [place] [address] Dr. Robert Almendarez CARDIAC FLOYD ADMITon 023 CK [Catalytic activity/Vol] 60 U/L Normal 39-308 [facility] Comment on above: Performed By: #### P T, PTT #### [facility] [address] [place] [address] Dr. Robert Almendarez CK.MB [Mass/Vol] 1.74 ng/mL Normal <=3.60 [facility] Comment on above: Performed By: #### P T, PTT #### [facility] [address] [place] [address] Dr. Robert Almendarez HSTROP 29.8 pg/mL Normal 4.0-76.1 [facility] Comment on above: Result Comment: CUT- OFF POINTS HAVE BEEN ESTABLISHED BASED ON THE FOURTH UNIVERSAL DEFINITIONS OF MYOCARDIAL INFARCTION. THE UPPER REFERENCE LIMIT (URL) OF TROPONIN, DEFINED THE 99TH PERCENTILE OF cTnI DISTRIBUTION IN A REFERENCE POPULATION, HAS BEEN CONFIRMED THE DECISION THRESHOLD FOR PA DIAGNOSIS. Performed By: #### P T, PTT #### [facility] [address] [address] [address] Robert Almendarez JERMAN 70 ng/mL Normal 16-96 [facility] Comment on above: Performed By: #### P T, PTT #### [facility] [address] [place] [address] Dr. Robert Almendarez CBC AUTO DIFFon 10-13-2022 BASO # 0.0 103/ul Normal 0.0-0.1 [facility] Comment on above: Performed By: #### C BC #### [facility] [address] [place] [address] Dr. Robert Almendarez Basophils/100 WBC (Bld) 0.7 % Normal 0.2-2.0 [facility] Comment on above: Performed By: #### C BC #### [facility] [address] [place] [address] Dr. Robert Almendarez EO # 0.1 103/ul Normal 0.0-0.7 [facility] Comment on above: Performed By: #### C BC #### [facility] [address] [address] [address] Robert Almendarez Eosinophils/100 WBC (Bld) 1.1 % Normal 0.9-7.0 [facility] Comment on above: Performed By: #### C BC #### [facility] [address] [place] [address] Dr. Robert Almendarez Erythrocyte distribution width (RBC) [Ratio] 11.7 % Normal 11.0-15.0 [facility] Comment on above: Performed By: #### C BC #### [facility] [address] [place] [address] Dr. Robret Almendarez Hematocrit (Bld) [Volume fraction] 39.0 % Critically low 42.0-54.0 [facility] Comment on above: Performed By: #### C BC #### [facility] [address] [place] [address] Dr. Robert Almendarez Hemoglobin (Bld) [Mass/Vol] 13.1 g/dL Critically low 14.0-18.0 [facility] Comment on above: Performed By: #### C BC #### [facility] [address] [place] [address] Dr. Robert Almendarez IG # 0.02 10e3/ul Normal 0.00-0.03 [facility] Comment on above: Performed By: #### C BC #### [facility] [address] [place] [address] Dr. Robert Almendarez IG % 0.3 % Normal 0.0-0.5 [facility] Comment on above: Performed By: #### C BC #### [facility] [address] [place] [address] Dr. Robert Almendarez LYMPH # 2.0 103/ul Normal 1.2-3.8 [facility] Comment on above: Performed By: #### C BC #### [facility] [address] [place] [address] Dr. Robert Almendarez Lymphocytes/100 WBC (Bld) 32.4 % Normal 20.5-60.0 [facility] Comment on above: Performed By: #### C BC #### [facility] [address] [place] [address] Dr. Robert Almendarez MANUAL DIFF REQ NO Normal [facility] Comment on above: Performed By: #### C BC #### [facility] [address] [place] [address] Dr. Robert Almendarez MCH (RBC) [Entitic mass] 29.5 pg Normal 25.9-34.0 [facility] Comment on above: Performed By: #### C BC #### [facility] [address] [place] [address] Dr. Robert Almendarez MCHC (RBC) [Mass/Vol] 33.6 g/dL Normal 29.9-35.2 [facility] Comment on above: Performed By: #### C BC #### [facility] [address] [place] [address] Dr. Robert Almendarez MCV (RBC) [Entitic vol] 87.8 fL Normal 80.0-94.0 [facility] Comment on above: Performed By: #### C BC #### [facility] [address] [place] [address] Dr. Robert Almendarez MONO # 0.6 103/ul Normal 0.3-0.8 [facility] Comment on above: Performed By: #### C BC #### [facility] [address] [place] [address] Dr. Robert Almendarez Monocytes/100 WBC (Bld) 9.2 % Normal 1.7-12.0 [facility] Comment on above: Performed By: #### C BC #### [facility] [address] [place] [address] Dr. Robert Almendarez NEUT # 3.5 103/ul Normal 1.4-6.5 [facility] Comment on above: Performed By: #### C BC #### [facility] [address] [place] [address] Dr. Robert Almendarez Neutrophils/100 WBC (Bld) 56.3 % Normal 43.0-75.0 [facility] Comment on above: Performed By: #### C BC #### [facility] [address] [place] [address] Dr. Robert Almendarez Platelet mean volume (Bld) [Entitic vol] 11.0 fL Normal 9.5-13.5 [facility] Comment on above: Performed By: #### C BC #### [facility] [address] [place] [address] Dr. Robert Almendarez PLT 265 103/ul Normal 150-450 [facility] Comment on above: Performed By: #### C BC #### [facility] [address] [place] [address] Dr. Robert Almendarez RBC 4.44 106/ul Critically low 4.70-6.10 [facility] Comment on above: Performed By: #### C BC #### [facility] [address] [place], [place] [address] Dr. Robert Almendarez WBC 6.1 103/ul Normal 4.0-11.0 [facility] Comment on above: Performed By: #### C BC #### [facility] [address] [place], [place] [address] ABD/PELVIS WO CONon 10-13 CT ABD/PELVIS WO CON EXAMINATION: CT ABD/PELVIS WO CON HISTORY: UNSPECIFIED ABDOMINAL PAIN , distention, bilateral flank pain COMPARISON: CT abdomen pelvis 09/21/2021 TECHNIQUE: Axial, Coronal, and Sagittal images were obtained without and/or with IV contrast as indicated by examination type. Dose reduction techniques were achieved by using automated exposure control and/or adjustment of mA and/or kV according to patient size and/or use of iterative reconstruction technique. FINDINGS: LUNG BASES: No visible pulmonary or pleural disease. LIVER: No enlargement, atrophy, suspicious density, or significant focal lesion. BILIARY: Several small stones within the noninflamed gallbladder. PANCREAS: No lesion, fluid collection, or abnormal duct dilatation. SPLEEN: No enlargement or focal lesion. ADRENALS: No mass or enlargement. KIDNEYS: Within the right perirenal space is a 3.1 x 3.1 x 2.0 cm triangular shaped density inferior-lateral to the right kidney and posterior to the right paracolic gutter of uncertain etiology. Unremarkable kidneys; no mass, obstruction, or calcification. BOWEL/MESENTERY: No visible mass, obstruction, or bowel wall thickening. Normal appendix. AORTA/VASCULAR: No aneurysm or dissection. RETROPERITONEUM: No mass or adenopathy. LYMPH NODES: No adenopathy. URINARY BLADDER: No visible focal wall thickening, lesion, or calculus. PELVIC ORGANS: No visible mass. Pelvic organs appropriate for patient age. ABDOMINAL WALL: No mass or hernia. BONES: No bony lesion or fracture. OTHER: Negative. IMPRESSION: 1. Cholelithiasis. 2.Triangular shaped density within lower lateral right perirenal space posterior to the ascending colon suspected represent a mixture of fluid and fat, possible fluid collection, but of uncertain etiology. Given its density, a soft tissue mass is felt less likely. Follow-up CT in one-2 months is recommended to document stability or possible resolution. 3. No appreciable acute findings to account for patient's symptoms. Electronically authenticated by: ALICE TOURETIFFANY Date: 2022-10-13 14:16 Normal [facility] ER URINE PROFILEon 3 Bilirubin Ql (U) Negative Normal NEGATIVE [facility] Comment on above: Performed By: #### E MITULR UMICRO #### [facility] [address] [address] [address] Robert Almendarez Clarity (U) CLEAR Normal CLEAR [facility] Comment on above: Performed By: #### E OTILIO UMICRO #### [facility] [address] [address] [address] Robert Almendarez Color (U) LT. YELLOW Normal YELLOW [facility] Comment on above: Performed By: #### E OTILIO UMICRO #### [facility] [address] [place] [address] Dr. Robert STRICKLAND A micrscopic examination will be performed if indicated. Normal [facility] Comment on above: Performed By: #### Fallon YAÑEZ UMICRO #### [facility] [address] [address] [address] Robert Almendarez Glucose Ql (U) Negative Normal NEGATIVE [facility] Comment on above: Performed By: #### Fallon YAÑEZ UMICRO #### [facility] [address] [address] [address] Robert Almendarez Hemoglobin Ql (U) TRACE-INTACT Abnormal NEGATIVE [facility] Comment on above: Performed By: #### E RUR, UMICRO #### [facility] [address] [address] [address] Robert Almendarez Ketones Ql (U) Negative Normal NEGATIVE [facility] Comment on above: Performed By: #### E RUR UMICRO #### [facility] [address] [address] [address] Robert Almendarez LEUKOCYTES Negative Normal NEGATIVE [facility] Comment on above: Performed By: #### Fallon RUR UMICRO #### [facility] [address] [place] [address] Dr. Robert Almendarez Nitrite Ql (U) Negative Normal NEGATIVE [facility] Comment on above: Performed By: #### MARIA C HAYES #### [facility] [address] [place] [address] Dr. Robert Almendarez pH (U) 7.0 [pH] Normal 5-9 [facility] Comment on above: Performed By: #### JOSE HAYESRO #### [facility] [address] [place] [address] Dr. Robert Almendarez Protein (U) [Mass/Vol] 30 mg/dL Abnormal NEGAT PAO/ TRACE [facility] Comment on above: Performed By: #### JOSE HAYESRO #### [facility] [address] [place] [address] Dr. Robert Almendarez SPEC GRAVITY 1.010 Normal 1.005-<=1.[address] [place] [address] Comment on above: Performed By: #### JOSE HAYESRO #### [facility] [address] [place] [address] Dr. Robert Almendarez UR MICRO IND INDICATED Normal [facility] Comment on above: Performed By: #### JOSE HAYESRO #### [facility] [address] [place] [address] Dr. Robert Almendarez Urobilinogen Qn (U) 0.2 {Fabiana'U}/dL Normal 0.2 - 1. 0 [facility] Comment on above: Performed By: #### JOSE HAYESRO #### [facility] [address] [place] [address] Dr. Robert Almendarez PROF 14(COMP METB)on 023 Albumin [Mass/Vol] 3.4 g/dL Normal 3.4-5.0 [facility] Comment on above: Performed By: #### P T, PTT #### [facility] [address] [place] [address] Dr. Robert Almendarez Albumin/Globulin [Mass ratio] 1.0 {ratio} Normal [facility] Comment on above: Performed By: #### P T, PTT #### [facility] [address] [address] [address] Robert Almendarez ALP [Catalytic activity/Vol] 80 U/L Normal 46-116 [facility] Comment on above: Performed By: #### P T, PTT #### [facility] [address] [place] [address] Dr. Robert Almendarez ALT [Catalytic activity/Vol] 25 U/L Normal 16-63 [facility] Comment on above: Performed By: #### P T, PTT #### [facility] [address] [place] [address] Dr. Robert Almendarez Anion gap [Moles/Vol] 10.3 mmol/L Normal [facility] Comment on above: Performed By: #### P T, PTT #### [facility] [address] [place] [address] Dr. Robert Almendarez AST [Catalytic activity/Vol] 17 U/L Normal 15-37 [facility] Comment on above: Performed By: #### P T, PTT #### [facility] [address] [place] [address] Dr. Robert Almendarez Bilirubin [Mass/Vol] 0.3 mg/dL Normal 0.2-1.0 [facility] Comment on above: Performed By: #### P T, PTT #### [facility] [address] [place] [address] Dr. Robert Almendarez Calcium [Mass/Vol] 10.4 mg/dL Critically high 8.5-10.1 [facility] Comment on above: Performed By: #### P T, PTT #### [facility] [address] [place] [address] Dr. Robert Almendarez Chloride [Moles/Vol] 105 mmol/L Normal 98-107 [facility] Comment on above: Performed By: #### P T, PTT #### [facility] [address] [place] [address] Dr. Robert Almendarez CO2 [Moles/Vol] 26.9 mmol/L Normal 21.0-32.0 [facility] Comment on above: Performed By: #### P T, PTT #### [facility] [address] [address] [address] Rboert Almendarez Creatinine [Mass/Vol] 1.43 mg/dL Critically high 0.70-1.30 [facility] Comment on above: Performed By: #### P T, PTT #### [facility] [address] [address] [address] Robert Almendarez EGFR-AF BOLIVIAN >60 Normal >=60 [facility] Comment on above: Performed By: #### P T, PTT #### [facility] [address] [address] [address] Robert Almendarez EGFR-NON AF BOLIVIAN 50 mL/min/1.73m2 Critically low >=60 [facility] Comment on above: Performed By: #### P T, PTT #### [facility] [address] [place] [address] Dr. Robert Almendarez Globulin (S) [Mass/Vol] 3.5 g/dL Normal [facility] Comment on above: Performed By: #### P T, PTT #### [facility] [address] [address] [address] Robert Almendarez Glucose [Mass/Vol] 168 mg/dL Critically high 74-106 [facility] Comment on above: Performed By: #### P T, PTT #### [facility] [address] [address] [address] Robert Almendarez Potassium [Moles/Vol] 4.2 mmol/L Normal 3.5-5.1 [facility] Comment on above: Performed By: #### P T, PTT #### [facility] [address] [address] [address] Robert Almendarez Protein [Mass/Vol] 6.9 g/dL Normal 6.4-8.2 [facility] Comment on above: Performed By: #### P T, PTT #### [facility] [address] [address] [address] Robert Almendarez Sodium [Moles/Vol] 138 mmol/L Normal 136-145 [facility] Comment on above: Performed By: #### P T, PTT #### [facility] [address] [place] [address] Dr. Robert Almendarez Urea nitrogen [Mass/Vol] 23.0 mg/dL Critically high 7.0-18.0 [facility] Comment on above: Performed By: #### P T, PTT #### [facility] [address] [place] [address] Dr. Robert Almendarez Urea nitrogen/Creatinine [Mass ratio] 16.1 mg/mg Normal [facility] Comment on above: Performed By: #### P T, PTT #### [facility] [address] [place] [address] Dr. Robert Almendarez PROTIMEon 10-13-2022 INR Coag (PPP) [Relative time] 1.00 {INR} Normal [facility] Comment on above: Performed By: #### P T, PTT #### [facility] [address] [place] [address] Dr. Robert Almendarez INR GUIDELINES SEE BELOW Normal [facility] Comment on above: Result Comment: DAVID RED INR: 2.0 - 3.0 CONDITIONS NOT LISTED BELOW 2.5 - 3.5 FOR PROSTHETIC HEART VALVE REPLACEMENT 2.5 - 3.5 RECURRENT THROMBOSIS Performed By: #### P T, PTT #### [facility] [address] [place] [address] Dr. Robert Almendarez PT Coag (PPP) [Time] 10.6 s Normal 9.0-11.6 [facility] Comment on above: Performed By: #### P T, PTT #### [facility] [address] [place] [address] Dr. Robert Almendarez PTTon 10-13-2022 aPTT Coag (Bld) [Time] 25.4 s Normal 22.3-36.2 [facility] Comment on above: Performed By: #### P T, PTT #### [facility] [address] [place] [address] Dr. Robert Almendarez URINE MICROSCOPIC ONLYon BACTERIA NONE SEEN Normal NONE SEEN [facility] Comment on above: Performed By: #### E OTILIO, UMICRO #### [facility] [address] [place] [address] Dr. Robert Almendarez Bacteria identified Cx Nom (U) NOT INDICATED Normal [facility] Comment on above: Performed By: #### Fallon YAÑEZ UMICRO #### [facility] [address] [place] [address] Dr. Robert Almendarez CAST NONE SEEN Normal NONE SEEN [facility] Comment on above: Performed By: #### Fallon YAÑEZ UMICRO #### [facility] [address] [place] [address] Dr. Robert Almendarez Crystals LM Nom (Urine sed) NONE SEEN Normal NONE SEEN [facility] Comment on above: Performed By: #### Fallon YAÑEZ UMICRO #### [facility] [address] [place] [address] Dr. Robert Almendarez Epithelial cells LM Ql (Urine sed) RARE Normal NONE SEEN /RARE [facility] Comment on above: Performed By: #### Fallon YAÑEZ UMICRO #### [facility] [address] [place] [address] Dr. Robert Almendarez MUCOUS NONE SEEN Normal NONE SEEN [facility] Comment on above: Performed By: #### Fallon YAÑEZ UMICRO #### [facility] [address] [place] [address] Dr. Robert Almendarez RBC 0-2 Normal 0-2 [facility] Comment on above: Performed By: #### Fallon YAÑEZ UMICRO #### [facility] [address] [place] [address] Dr. Robert Almendarez WBC 0-2 Abnormal NONE SEEN [facility] Comment on above: Performed By: #### Fallon YAÑEZ UMICRO #### [facility] [address] [place] [address] Dr. Robert Almendarez XR CHEST 1 Von 10-13-2022 XR CHEST 1 V EXAM: XR CHEST 1 V HISTORY: SHORTNESS OF BREATH COMPARISON: None. TECHNIQUE: AP view of the chest. FINDINGS: The cardiomediastinal silhouette is normal. The lungs are clear. There is no pneumothorax. No pleural effusion is noted. The osseous structures are intact. IMPRESSION: No acute cardiopulmonary process. Electronically authenticated by: FLOYD KHUSHBOO Date: 2022-10-13 12:48 Normal [facility] Echo 2D w doppler w color co mpleteon 07-11-2022 [place] Transthoracic Echocardiography Report (TTE) Patient Name LAURA Date of Study 07/11/2022 PIOTR A Date of 1960 Gender Male Age 61 year(s) Race Room Number Height: 72 inch, 182.88 cm Corporate ID [id number] Weight: 240 pounds, 108.9 kg # Patient Acct [id number] BSA: 2.3 m^2 BMI: 32.55 # kg/m^2 MR # [id number] [employer] Dionna Barriga Interpreting Physician Alice Mars Fellow Referring Nurse Practitioner Interpreting Referring Physician Alma Kan Fellow Type of Study TTE procedure:2D Echocardiogram, M-Mode, Doppler, Color Doppler. Procedure Date Date: 07/11/2022 Start: 10:46 AM Study Location: [facility] Indications:Preop cardiac evaluation. History / Tech. Comments: Pre op PMHX: ASHD, HLD, CHF, Stroke Patient Status: Outpatient Height: 72 inches Weight: 240 pounds BSA: 2.3 m^2 BMI: 32.55 kg/m^2 BP: 145/80 mmHg Allergies - *No Known Allergies. CONCLUSIONS Summary Global left ventricular systolic function appears preserved with an estimated ejection fraction of >65%. The left ventricular cavity size is within normal limits and the left ventricular wall thickness is mildly increased. No definite specific wall motion abnormalities were identified. The left atrium is moderately dilated (34-39) with a left atrial volume index of 39 ml/m2. Normal mitral valve structure with trivial mitral regurgitation. Evidence of mild (grade I) diastolic dysfunction is seen. The aortic root is considered to be at the upper limits of normal in size when corrected for body surface area. Compared to the previous study of 05/28/21, the patients EF has increased from 50-55% to >65%. Signature FINDINGS Left Atrium The left atrium is moderately dilated (34-39) with a left atrial volume index of 39 ml/m2. Left Ventricle Global left ventricular systolic function appears preserved with an estimated ejection fraction of >65%. The left ventricular cavity size is within normal limits and the left ventricular wall thickness is mildly increased. No definite specific wall motion abnormalities were identified. Right Atrium Right atrium is normal in size. Right Ventricle Normal right ventricular size and function. Mitral Valve Normal mitral valve structure with trivial mitral regurgitation. Aortic Valve Aortic leaflets show calcification without restriction of motion. Tricuspid Valve Normal tricuspid valve structure and function. Pulmonic Valve The pulmonic valve is normal in structure. Pericardial Effusion No significant pericardial effusion is seen. Miscellaneous Evidence of mild (grade I) diastolic dysfunction is seen. The aortic root is considered to be at the upper limits of normal in size when corrected for body surface area. M-mode / 2D Measurements & Calculations: LVIDd:5.37 cm(3.7 - 5.6 cm) Diastolic Volume:154.72 ml LVIDs:3.63 cm(2.2 - 4.0 cm) Systolic Volume:47.66 ml IVSd:1.29 cm(0.6 - 1.1 cm) Aortic Root:3.72 cm(2.0 - 3.7 cm) LVPWd:1.27 cm(0.6 - 1.1 cm) LA Dimension: 5.11 cm(1.9 - 4.0 cm) Fractional Shortenin.4 % LA volume/Index: 89 ml /39m^2 Calculated LVEF (%): 69.2 % AV Cusp Separation: 2.11 cm Mitral: Aortic Valve Area (P1/2-Time): 3.35 cm^2 Peak Velocity: 1.34 m/s Peak E-Wave: 1.01 m/s Mean Velocity: 0.88 m/s Peak A-Wave: 0.94 m/s Peak Gradient: 7.18 mmHg E/A Ratio: 1.07 Mean Gradient: 3.67 mmHg Peak Gradient: 4.06 mmHg Acceleration Time: 71.83 msec P1/2t: 65.69 msec AV VTI: 32.1 cm Diastology / Tissue Doppler Lateral Wall E' velocity:0.11 m/s Lateral Wall E/E':9.2 [facility] Alice Mars MD - 07/11/2022 [facility] Transthoracic Echocardiography Report (TTE) Patient Name LAURA Date of Study 07/11/2022 PIOTR A Date of 1960 Gender Male Age 61 year(s) Race Room Number Height: 72 inch, 182.88 cm Corporate ID [id number] Weight: 240 pounds, 108.9 kg # Patient Acct [id number] BSA: 2.3 m^2 BMI: 32.55 # kg/m^2 MR # [id number] [employer] Dionna Barriga Interpreting Physician Alice Mars Fellow Referring Nurse Practitioner Interpreting Referring Physician Alma Kan Type of Study TTE procedure:2D Echocardiogram, M-Mode, Doppler, Color Doppler. Procedure Date Date: 07/11/2022 Start: 10:46 AM Study Location: [facility] Indications:Preop cardiac evaluation. History / Tech. Comments: Pre op PMHX: ASHD, HLD, CHF, Stroke Patient Status: Outpatient Height: 72 inches Weight: 240 pounds BSA: 2.3 m^2 BMI: 32.55 kg/m^2 BP: 145/80 mmHg Allergies - *No Known Allergies. CONCLUSIONS Summary Global left ventricular systolic function appears preserved with an estimated ejection fraction of >65%. The left ventricular cavity size is within normal limits and the left ventricular wall thickness is mildly increased. No definite specific wall motion abnormalities were identified. The left atrium is moderately dilated (34-39) with a left atrial volume index of 39 ml/m2. Normal mitral valve structure with trivial mitral regurgitation. Evidence of mild (grade I) diastolic dysfunction is seen. The aortic root is considered to be at the upper limits of normal in size when corrected for body surface area. Compared to the previous study of 05/28/21, the patients EF has increased from 50-55% to >65%. Signature - - - - FINDINGS Left Atrium The left atrium is moderately dilated (34-39) with a left atrial volume index of 39 ml/m2. Left Ventricle Global left ventricular systolic function appears preserved with an estimated ejection fraction of >65%. The left ventricular cavity size is within normal limits and the left ventricular wall thickness is mildly increased. No definite specific wall motion abnormalities were identified. Right Atrium Right atrium is normal in size. Right Ventricle Normal right ventricular size and function. Mitral Valve Normal mitral valve structure with trivial mitral regurgitation. Aortic Valve Aortic leaflets show calcification without restriction of motion. Tricuspid Valve Normal tricuspid valve structure and function. Pulmonic Valve The pulmonic valve is normal in structure. Pericardial Effusion No significant pericardial effusion is seen. Miscellaneous Evidence of mild (grade I) diastolic dysfunction is seen. The aortic root is considered to be at the upper limits of normal in size when corrected for body surface area. M-mode / 2D Measurements & Calculations: LVIDd:5.37 cm(3.7 - 5.6 cm) Diastolic Volume:154.72 ml LVIDs:3.63 cm(2.2 - 4.0 cm) Systolic Volume:47.66 ml IVSd:1.29 cm(0.6 - 1.1 cm) Aortic Root:3.72 cm(2.0 - 3.7 cm) LVPWd:1.27 cm(0.6 - 1.1 cm) LA Dimension: 5.11 cm(1.9 - 4.0 cm) Fractional Shortenin.4 % LA volume/Index: 89 ml /39m^2 Calculated LVEF (%): 69.2 % AV Cusp Separation: 2.11 cm Mitral: Aortic Valve Area (P1/2-Time): 3.35 cm^2 Peak Velocity: 1.34 m/s Peak E-Wave: 1.01 m/s Mean Velocity: 0.88 m/s Peak A-Wave: 0.94 m/s Peak Gradient: 7.18 mmHg E/A Ratio: 1.07 Mean Gradient: 3.67 mmHg Peak Gradient: 4.06 mmHg Acceleration Time: 71.83 msec P1/2t: 65.69 msec AV VTI: 32.1 cm Diastology / Tissue Doppler Lateral Wall E' velocity:0.11 m/s Lateral Wall E/E':9.2 [facility] Work Phone: Echo 2D w doppler w color co mpleteOrdered By: Alice Mars on 07-11-2022 [facility] Work Phone: CBC with Auto Differentialon 06-25-2022 Absolute Eos # 0.07 [facility] Absolute Immature Granulocyte [facility] Absolute Lymph # 1.89 [facility] Absolute [place] # 0.62 [facility] Basophils (Bld) [#/Vol] 0.05 10*3/uL [facility] Basophils/100 WBC (Bld) 1 % 0 - 2 % B ON [facility] Eosinophils/100 WBC (Bld) 1 % 1 - 4 % [facility] Hematocrit (Bld) [Volume fraction] 39.3 % Low 40.7 - 50.3 % [facility] Hemoglobin (Bld) [Mass/Vol] 12.9 g/dL Low 13.0 - 17.0 g/dL [facility] Immature granulocytes/100 WBC (Bld) 0 % 0 [facility] Interpretation and review of laboratory results Abnormal [facility] Lymphocytes/100 WBC (Bld) 27 % 24 - 43 % [facility] MCH (RBC) [Entitic mass] 30.3 pg 25.2 - 33.5 pg [facility] MCHC (RBC) [Mass/Vol] 32.8 g/dL 28.4 - 34.8 g/dL [facility] MCV (RBC) [Entitic vol] 92.3 fL 82.6 - 102.9 fL [facility] Monocytes/100 WBC (Bld) 9 % 3 - 12 % B ON [facility] NRBC Automated 0.0 0.0 per 100 WBC [facility] Platelet distribution width (Bld) [Ratio] 11.7 % Low 11.8 - 14.4 % [facility] Platelet mean volume (Bld) [Entitic vol] 10.9 fL 8.1 - 13.5 fL [facility] Platelets (Bld) [#/Vol] 236 10*3/uL [employer] [facility] RBC (Bld) [#/Vol] 4.26 10*6/uL 4.21 - 5.7 7 m/uL [employer] [facility] Segmented neutrophils/100 WBC (Bld) 62 % 36 - 65 % [employer] [facility] Segs Absolute 4.44 [employer] [facility])[employer] WBC (Bld) [#/Vol] 7.1 10*3/uL [employer] [facility] [facility] 12 Leadon 06-25-2022 Atrial Rate 60 BPM [facility] Work Phone: P [place] 42 degrees [facility] Work Phone: P-R Interval 134 ms [facility] Work Phone: Q-T Interval 386 ms [facility] Work Phone: QRS Duration 94 ms [facility] Work Phone: QTc Calculation (Bazett) 386 ms [facility] Work Phone: R [place] -2 degrees [facility] Work Phone: T [place] 23 degrees [facility] Work Phone: Ventricular Rate 60 BPM [employer] Work Phone: Normal sinus rhythm Can not rule out septal infarction, age undetermined. Abnormal ECG When compared with ECG of 05-JUN-2021 18:44, Nonspecific T wave abnormality, improved in Inferior leads Minimal criteria for septal infarction is now present. Confirmed by Alma Kan MD ([id number]) on 06/25/2022 8:14:36 PM [facility] Alma Kan MD - 06/25/2022 Normal sinus rhythm Can not rule out septal infarction, age undetermined. Abnormal ECG When compared with ECG of 05-JUN-2021 18:44, Nonspecific T wave abnormality, improved in Inferior leads Minimal criteria for septal infarction is now present. Confirmed by Alma Kan MD ([id number]) on 06/25/2022 8:14:36 PM [facility] Work Phone: [facility] Work Phone: Albuminon 05-24-2022 Albumin [Mass/Vol] 4 g/dL 3.5 - 5.2 g/dL [facility] CALCIUM,TIMED URon Calcium [Mass/Vol] 9.4 mg/dL [facility] Calcium, Urine 122 [facility] Hours Collected 24 h [facility] Volume 1300 mL [facility] Calciumon 05-24-2022 Calcium [Mass/Vol] 11.7 mg/dL High 8.6 - 10. 4 mg/dL [facility] Cortisol Totalon 05-24-2022 Cortisol 10.4 ug/dL 2.7 - 18.4 ug/dL [facility] Comment on above: Cortisol Reference Range: AM 6.0-18.4 PM 2.7-10.5 Cortisol Collection Info Unknown [facility] No Panel Informationon 05-24 Interpretation and review of laboratory results Abnormal [facility] PTH, [place] 05-24-2022 Interpretation and review of laboratory results Abnormal [facility] Pth Intact 107.7 pg/mL High 14.0 - 72.0 pg/mL [facility] Comment on above: SAMPLES FROM PATIENT S ROUTINELY RECEIVING HIGH DOSE BIOTIN THERAPY MAY SHOW FALSELY DEPRESSED RESULTS. ADDITIONAL INFORMATION MAY BE REQUIRED FOR DIAGNOSIS. [facility] Phosphoruson 05-24-2022 Phosphate [Mass/Vol] 1.5 mg/dL Low 2.5 - 4 .5 mg/dL [facility] US RENAL COMPLETEon 05-20-20 Appearance (U) Unremarkable ultrasound the kidneys. Unremarkable appearance urinary bladder with 309 mL postvoid residual volume. RECOMMENDATIONS: Unavailable [facility] CONSOLIDATED EXAMINATION: RETROPERITONEAL ULTRASOUND OF THE KIDNEYS AND URINARY BLADDER 05/20/2022 COMPARISON: None HISTORY: ORDERING SYSTEM PROVIDED HISTORY: Incomplete bladder emptying TECHNOLOGIST PROVIDED HISTORY: This procedure can be scheduled via [employer]. Access your [employer] account by visiting [employer]. Incomplete bladder emptying, chronic kidney disease 3 FINDINGS: Kidneys: The right kidney measures 11.4 cm in length and the left kidney measures 11.3 cm in length. Kidneys demonstrate normal cortical echogenicity. No evidence of hydronephrosis or intrarenal stones. Bladder: Unremarkable appearance urinary bladder with prevoid volume 594 mL. Postvoid residual 309 mL. [facility] RIS CONSOLIDATED You Null DO - 05/20/2022 EXAMINATION: RETROPERITONEAL ULTRASOUND OF THE KIDNEYS AND URINARY BLADDER 05/20/2022 COMPARISON: None HISTORY: ORDERING SYSTEM PROVIDED HISTORY: Incomplete bladder emptying TECHNOLOGIST PROVIDED HISTORY: This procedure can be scheduled via [employer]. Access your [employer] account by visiting [employer]. Incomplete bladder emptying, chronic kidney disease 3 FINDINGS: Kidneys: The right kidney measures 11.4 cm in length and the left kidney measures 11.3 cm in length. Kidneys demonstrate normal cortical echogenicity. No evidence of hydronephrosis or intrarenal stones. Bladder: Unremarkable appearance urinary bladder with prevoid volume 594 mL. Postvoid residual 309 mL. IMPRESSION: Unremarkable ultrasound the kidneys. Unremarkable appearance urinary bladder with 309 mL postvoid residual volume. RECOMMENDATIONS: Unavailable [employer] Phone: Radiology Study observation (narrative) [employer] Phone: US RENAL COMPLETEOrdered By: You Null on 05-20-2022 [employer] Phone: CBC AUTO DIFFon 05-14-2022 BASO # 0.0 103/ul Normal 0.0-0.1 [facility] Comment on above: Performed By: #### P T, PTT #### [facility] [address] [address] [address] Robert Almendarez Basophils/100 WBC (Bld) 0.6 % Normal 0.2-2.0 [facility] Comment on above: Performed By: #### P T, PTT #### [facility] [address] [place] [address] Dr. Robert Almendarez EO # 0.1 103/ul Normal 0.0-0.7 [facility] Comment on above: Performed By: #### P T, PTT #### [facility] [address] [place] [address] Dr. Robert Almendarez Eosinophils/100 WBC (Bld) 1.0 % Normal 0.9-7.0 [facility] Comment on above: Performed By: #### P T, PTT #### [facility] [address] [place] [address] Dr. Robert Almendarez Erythrocyte distribution width (RBC) [Ratio] 11.9 % Normal 11.0-15.0 [facility] Comment on above: Performed By: #### P T, PTT #### [facility] [address] [place] [address] Dr. Roebrt Almendarez Hematocrit (Bld) [Volume fraction] 40.1 % Critically low 42.0-54.0 [facility] Comment on above: Performed By: #### P T, PTT #### [facility] [address] [place] [address] Dr. Robert Almendarez Hemoglobin (Bld) [Mass/Vol] 13.6 g/dL Critically low 14.0-18.0 [facility] Comment on above: Performed By: #### P T, PTT #### [facility] [address] [place] [address] Dr. Robert Almendarez IG # 0.02 10e3/ul Normal 0.00-0.03 [facility] Comment on above: Performed By: #### P T, PTT #### [facility] [address] [place] [address] Dr. Robert Almendarez IG % 0.3 % Normal 0.0-0.5 [facility] Comment on above: Performed By: #### P T, PTT #### [facility] [address] [place] [address] Dr. Robert Almendarez LYMPH # 2.4 103/ul Normal 1.2-3.8 [facility] Comment on above: Performed By: #### P T, PTT #### [facility] [address] [place] [address] Dr. Robert Almendarez Lymphocytes/100 WBC (Bld) 34.0 % Normal 20.5-60.0 [facility] Comment on above: Performed By: #### P T, PTT #### [facility] [address] [place] [address] Dr. Robert Almendarez MANUAL DIFF REQ NO Normal [facility] Comment on above: Performed By: #### P T, PTT #### [facility] [address] [place] [address] Dr. Robert Almendaerz MCH (RBC) [Entitic mass] 29.7 pg Normal 25.9-34.0 [facility] Comment on above: Performed By: #### P T, PTT #### [facility] [address] [place] [address] Dr. Robert Almendarez MCHC (RBC) [Mass/Vol] 33.9 g/dL Normal 29.9-35.2 [facility] Comment on above: Performed By: #### P T, PTT #### [facility] [address] [place] [address] Dr. Robert Almendarez MCV (RBC) [Entitic vol] 87.6 fL Normal 80.0-94.0 [facility] Comment on above: Performed By: #### P T, PTT #### [facility] [address] [place] [address] Dr. Robert Almendarez MONO # 0.8 103/ul Normal 0.3-0.8 [facility] Comment on above: Performed By: #### P T, PTT #### [facility] [address] [place] [address] Dr. Robert Almendarez Monocytes/100 WBC (Bld) 11.2 % Normal 1.7-12.0 [facility] Comment on above: Performed By: #### P T, PTT #### [facility] [address] [place] [address] Dr. Robert Almendarez NEUT # 3.7 103/ul Normal 1.4-6.5 [facility] Comment on above: Performed By: #### P T, PTT #### [facility] [address] [address] [address] Robert Almendarez Neutrophils/100 WBC (Bld) 52.9 % Normal 43.0-75.0 [facility] Comment on above: Performed By: #### P T, PTT #### [facility] [address] [address] [address] Robert Almendarez Platelet mean volume (Bld) [Entitic vol] 10.4 fL Normal 9.5-13.5 [facility] Comment on above: Performed By: #### P T, PTT #### [facility] [address] [place] [address] Dr. Robert Almendarez PLT 260 103/ul Normal 150-450 [facility] Comment on above: Performed By: #### P T, PTT #### [facility] [address] [place] [address] Dr. Robert Almendarez RBC 4.58 106/ul Critically low 4.70-6.10 [facility] Comment on above: Performed By: #### P T, PTT #### [facility] [address] [place] [address] Dr. Robert Almendarez WBC 6.9 103/ul Normal 4.0-11.0 [facility] Comment on above: Performed By: #### P T, PTT #### [facility] [address] [place] [address] Dr. Robert Almendarez PHOSPHORUSon 05-14-2022 Phosphate [Mass/Vol] 1.8 mg/dL Critically low 2.6-4.7 [facility] Comment on above: Performed By: #### P T, PTT #### [facility] [address] [place] [address] Dr. Robert Almendarez PROF 14(COMP METB)on Albumin [Mass/Vol] 4.0 g/dL Normal 3.4-5.0 [facility] Comment on above: Performed By: #### P T, PTT #### [facility] [address] [address] [address] Robert Almendarez Albumin/Globulin [Mass ratio] 1.1 {ratio} Normal [facility] Comment on above: Performed By: #### P T, PTT #### [facility] [address] [address] [address] Robert Almendarez ALP [Catalytic activity/Vol] 85 U/L Normal 46-116 [facility] Comment on above: Performed By: #### P T, PTT #### [facility] [address] [address] [address] Robert Almendarez ALT [Catalytic activity/Vol] 24 U/L Normal 16-63 [facility] Comment on above: Performed By: #### P T, PTT #### [facility] [address] [place] [address] Dr. Robert Almendarez Anion gap [Moles/Vol] 9.0 mmol/L Normal [facility] Comment on above: Performed By: #### P T, PTT #### [facility] [address] [address] [address] Robert Almendarez AST [Catalytic activity/Vol] 14 U/L Critically low 15-37 [facility] Comment on above: Performed By: #### P T, PTT #### [facility] [address] [place] [address] Dr. Robert Almendarez Bilirubin [Mass/Vol] 0.5 mg/dL Normal 0.2-1.0 [facility] Comment on above: Performed By: #### P T, PTT #### [facility] [address] [address] [address] Robert Almendarez Calcium [Mass/Vol] 11.0 mg/dL Critically high 8.5-10.1 [facility] Comment on above: Performed By: #### P T, PTT #### [facility] [address] [address] [address] Robert Almendarez Chloride [Moles/Vol] 105 mmol/L Normal 98-107 [facility] Comment on above: Performed By: #### P T, PTT #### [facility] [address] [address] [address] Robert Almendarez CO2 [Moles/Vol] 28.9 mmol/L Normal 21.0-32.0 [facility] Comment on above: Performed By: #### P T, PTT #### [facility] [address] [address] [address] Robert Almendarez Creatinine [Mass/Vol] 1.43 mg/dL Critically high 0.70-1.30 [facility] Comment on above: Performed By: #### P T, PTT #### [facility] [address] [address] [address] Robert Almendarez EGFR-AF BOLIVIAN >60 Normal >=60 [facility] Comment on above: Performed By: #### P T, PTT #### [facility] [address] [address] [address] Robert Almendarez EGFR-NON AF BOLIVIAN 50 mL/min/1.73m2 Critically low >=60 [facility] Comment on above: Performed By: #### P T, PTT #### [facility] [address] [address] [address] Robert Almendarez Globulin (S) [Mass/Vol] 3.5 g/dL Normal [facility] Comment on above: Performed By: #### P T, PTT #### [facility] [address] [address] [address] Robert Almendarez Glucose [Mass/Vol] 147 mg/dL Critically high 74-106 [facility] Comment on above: Performed By: #### P T, PTT #### [facility] [address] [address] [address] Robert Almendarez Potassium [Moles/Vol] 3.9 mmol/L Normal 3.5-5.1 [facility] Comment on above: Performed By: #### P T, PTT #### [facility] [address] [address] [address] Robert Almendarez Protein [Mass/Vol] 7.5 g/dL Normal 6.4-8.2 [facility] Comment on above: Performed By: #### P T, PTT #### [facility] [address] [place], [place] [address] Dr. Robert Almendarez Sodium [Moles/Vol] 139 mmol/L Normal 136-145 [facility] Comment on above: Performed By: #### P T, PTT #### [facility] [address] [place], [place] [address] Dr. Robert Almendarez Urea nitrogen [Mass/Vol] 27.0 mg/dL Critically high 7.0-18.0 [facility] Comment on above: Performed By: #### P T, PTT #### [facility] [address] [place], [place] [address] Dr. Robert Almendarez Urea nitrogen/Creatinine [Mass ratio] 18.9 mg/mg Normal [facility] Comment on above: Performed By: #### P T, PTT #### [facility] [address] [address] [address] Robert Almendarez Basic Metabolic Panelon 12-2 Anion gap [Moles/Vol] 10 mmol/L 9 - 17 mmol/L [employer] [facility] Calcium [Mass/Vol] 12.0 mg/dL High 8.6 - 10. 4 mg/dL [employer] [facility] Chloride [Moles/Vol] 103 mmol/L 98 - 10 7 mmol/L [facility] CO2 [Moles/Vol] 25 mmol/L 20 - 31 mmol/L [employer] [facility] Creatinine [Mass/Vol] 1.39 mg/dL High 0.70 - 1.20 mg/dL [employer] [facility] GFR/1.73 sq M.predicted MDRD (S/P/Bld) [Vol rate/Area] 57 mL/min/{1.73_m2} Low - PINF [employer] [facility] Comment on above: Effective Feb 24, 2022 These results are not intended for use in patients <18 years of age. eGFR results are calculated without a race factor using the 2020 CKD-EPI equation. Careful clinical correlation is recommended, particularly when comparing to results calculated using previous equations. The CKD-EPI equation is less accurate in patients with extremes of muscle mass, extra-renal metabolism of creatine, excessive creatine ingestion, or following therapy that affects renal tubular secretion. Glucose [Mass/Vol] 171 mg/dL High 70 - 99 mg/dL [facility] Interpretation and review of laboratory results Abnormal [facility] Potassium [Moles/Vol] 4.1 mmol/L 3.7 - 5.3 mmol/L [facility] Sodium [Moles/Vol] 138 mmol/L 135 - 144 mmol/L [facility] Urea nitrogen (BldV) [Mass/Vol] 25 mg/dL High 8 - 23 mg/dL [facility] Urea nitrogen/Creatinine (Bld) [Mass ratio] 18 9 - 20 [facility] [employer] PSA Screeningon 05-13-2022 [facility] Basic Metabolic Panelon 02-23 Anion gap [Moles/Vol] 6 mmol/L Low 9 - 17 mmol/L [facility] Calcium [Mass/Vol] 10.6 mg/dL High 8.6 - 10. 4 mg/dL [facility] Chloride [Moles/Vol] 104 mmol/L 98 - 10 7 mmol/L [facility] CO2 [Moles/Vol] 25 mmol/L 20 - 31 mmol/L [facility] Creatinine [Mass/Vol] 1.31 mg/dL High 0.70 - 1.20 mg/dL [facility] GFR/1.73 sq M.predicted MDRD (S/P/Bld) [Vol rate/Area] - PINF [facility] Comment on above: Effective Feb 24, 2022 These results are not intended for use in patients <18 years of age. eGFR results are calculated without a race factor using the 2020 CKD-EPI equation. Careful clinical correlation is recommended, particularly when comparing to results calculated using previous equations. The CKD-EPI equation is less accurate in patients with extremes of muscle mass, extra-renal metabolism of creatine, excessive creatine ingestion, or following therapy that affects renal tubular secretion. Glucose [Mass/Vol] 202 mg/dL High 70 - 99 mg/dL [facility] Interpretation and review of laboratory results Abnormal [facility] Potassium [Moles/Vol] 4.1 mmol/L 3.7 - 5.3 mmol/L [facility] Sodium [Moles/Vol] 135 mmol/L 135 - 144 mmol/L [facility] Urea nitrogen (BldV) [Mass/Vol] 27 mg/dL High 8 - 23 mg/dL [facility] Urea nitrogen/Creatinine (Bld) [Mass ratio] 21 High 9 - 20 [facility] A1C with Estimated Average G marcos 01-09-2022 Glucose [Mass/Vol] 160 mg/dL Normal [facility] Comment on above: Result Comment: PERF ORMED BY: [place] [address] PATHOLOGIST DESIGN AGENT YURI ORTA M.D. Performed By: #### B COMMUNITY DEVELOPMENT TECHNICIAN, BMP, LIPID, CBC, A1C WT eA #### [address] [place] [id number] [facility] HbA1c (Bld) [Mass fraction] 7.2 % High 4.3-5.6 [facility] Comment on above: Result Comment: Incr eased risk for diabetes: 5.7 - 6.4 diabetes: >6.4 glycemic control for adults with diabetes: <7.0 Performed By: #### B COMMUNITY DEVELOPMENT TECHNICIAN, BMP, LIPID, CBC, A1C WTH eA #### [address] B-Type Natriuretic Peptideon 01-09-2022 Natriuretic peptide B (Bld) [Mass/Vol] 90.0 pg/mL Normal 5-100 [facility] Comment on above: Result Comment: PERF ORMED BY: [place] [address] PATHOLOGIST DESIGN AGENT YURI ORTA M.D. Performed By: #### B COMMUNITY DEVELOPMENT TECHNICIAN, BMP, LIPID, CBC, A1C WTH eA #### [place] [id number] [facility] Basic Metabolic Panelon 08- Calcium [Mass/Vol] 11.0 mg/dL High 8.2-10.2 [facility] Comment on above: Performed By: #### B COMMUNITY DEVELOPMENT TECHNICIAN, BMP, LIPID, CBC, A1C WTH eA #### [address] [place] [address] [place] Chloride [Moles/Vol] 106 mmol/L Normal 95-114 [facility] Comment on above: Performed By: #### B COMMUNITY DEVELOPMENT TECHNICIAN, BMP, LIPID, CBC, A1C WTH eA #### [facility] [address] CO2 [Moles/Vol] 25.5 mmol/L Normal 22.0-30.0 [facility] Comment on above: Performed By: #### B COMMUNITY DEVELOPMENT TECHNICIAN, BMP, LIPID, CBC, A1C WTH eA #### [facility] [address] Creatinine [Mass/Vol] 1.25 mg/dL Normal 0.64-1.27 [facility] Comment on above: Performed By: #### B COMMUNITY DEVELOPMENT TECHNICIAN, BMP, LIPID, CBC, A1C WTH eA #### [address] Estimated GFR ( Lucia > 60 [facility] Comment on above: Result Comment: GFR estimated reference range: According to KDOQI guidelines, <60 ml/min/1.73m2 is sufficient to diagnose a patient with chronic kidney disease. Performed By: #### B COMMUNITY DEVELOPMENT TECHNICIAN, BMP, LIPID, CBC, A1C WTH eA #### [address] Estimated GFR (Non- Am 59 [facility] Comment on above: Performed By: #### B COMMUNITY DEVELOPMENT TECHNICIAN, BMP, LIPID, CBC, A1C WTH eA #### [address] Glucose [Mass/Vol] 120 mg/dL High 70-100 [facility] Comment on above: Result Comment: [place] Glucose Reference Range is dependent on time and content of last meal. Glucose of more than 200 mg/dL in a nonstressed, ambulatory subject supports the diagnosis of Diabetes Mellitus. ADA recommended reference range Performed By: #### B COMMUNITY DEVELOPMENT TECHNICIAN, BMP, LIPID, CBC, A1C WTH eA #### [address] Potassium [Moles/Vol] 4.3 mmol/L Normal 3.5-5.1 [facility] Comment on above: Performed By: #### B COMMUNITY DEVELOPMENT TECHNICIAN, BMP, LIPID, CBC, A1C WT eA #### [facility] [address] Sodium [Moles/Vol] 136 mmol/L Normal 136-146 [facility] Comment on above: Performed By: #### B COMMUNITY DEVELOPMENT TECHNICIAN, BMP, LIPID, CBC, A1C WT eA #### [facility] [address] Urea nitrogen [Mass/Vol] 22 mg/dL Normal 9-23 [facility] Comment on above: Performed By: #### B COMMUNITY DEVELOPMENT TECHNICIAN, BMP, LIPID, CBC, A1C WT eA #### [facility] [address] Basophils Auto (Bld) [#/Vol] Ordered By: Alma Kan on 01-09-2022 Basophils (Bld) [#/Vol] 0.0 10*3/uL 0.0-0.2 [facility] Basophils/100 WBC Auto (Bld) Ordered By: Alma Kan on 01-09-2022 Basophils/100 WBC (Bld) 0.3 % . [facility] Blood hemoglobin measurement (mass/volume)Ordered By: Alma Kan on 01-09-2022 Hemoglobin (Bld) [Mass/Vol] 13.6 g/dL 13.0-17.0 [facility] Blood leukocytes automated c ount (number/volume)Ordered By: Alma Kan on 01-09-2022 WBC (Bld) [#/Vol] 7.7 10*3/uL 4.5-11.0 [facility] Cholesterol [Mass/volume] in Serum or PlasmaOrdered By: Alma Kan on 01-09-2022 Cholesterol [Mass/Vol] 157 mg/dL 140-200 [facility] Comment on above: Chol less than 200 m g/dl low risk Chol 201-239 mg/dl borderline risk Chol 240 mg/dl and greater high risk Cholesterol in LDL Calc [Mas s/Vol]Ordered By: Alma Kan on 01-09-2022 Cholesterol in LDL [Mass/Vol] 86 mg/dL 0-100 [facility] Comment on above: LDL ATP III CLASSIFI CATION LDL less than 100 mg/dL Optimal LDL 100-129 mg/dL Near or above optimal LDL 130-159 mg/dL Borderline high LDL 160-189 mg/dL High LDL greater than 189 mg/dL Very high Cholesterol in VLDL Calc [Ma ss/Vol]Ordered By: Alma Kan on 01-09-2022 Cholesterol in VLDL [Mass/Vol] 45 mg/dL [facility] Complete Blood Count Auto Di ffon 01-09-2022 Basophils (Bld) [#/Vol] 0.0 10*3/uL Normal 0.0-0.2 [facility] Comment on above: Result Comment: PERF ORMED BY: [place] [address] PATHOLOGIST DESIGN AGENT YURI ORTA M.D. Performed By: #### B COMMUNITY DEVELOPMENT TECHNICIAN, BMP, LIPID, CBC, A1C WTH eA #### [address] Basophils/100 WBC (Bld) 0.3 % Normal . [facility] Comment on above: Performed By: #### B COMMUNITY DEVELOPMENT TECHNICIAN, BMP, LIPID, CBC, A1C WTH eA #### [address] Eosinophils (Bld) [#/Vol] 0.1 10*3/uL Normal 0.0-0.45 [facility] Comment on above: Performed By: #### B COMMUNITY DEVELOPMENT TECHNICIAN, BMP, LIPID, CBC, A1C WTH eA #### [address] Eosinophils/100 WBC (Bld) 1.9 % Normal . [facility] Comment on above: Performed By: #### B COMMUNITY DEVELOPMENT TECHNICIAN, BMP, LIPID, CBC, A1C WTH eA #### [address] Erythrocyte distribution width (RBC) [Ratio] 13.0 % Normal 12.0-14.8 [facility] Comment on above: Performed By: #### B COMMUNITY DEVELOPMENT TECHNICIAN, BMP, LIPID, CBC, A1C WTH eA #### [address] Hematocrit (Bld) [Volume fraction] 40.8 % Normal 38.8-50.0 [facility] Comment on above: Performed By: #### B COMMUNITY DEVELOPMENT TECHNICIAN, BMP, LIPID, CBC, A1C WTH eA #### [address] Hemoglobin (Bld) [Mass/Vol] 13.6 g/dL Normal 13.0-17.0 [facility] Comment on above: Performed By: #### B COMMUNITY DEVELOPMENT TECHNICIAN, BMP, LIPID, CBC, A1C WTH eA #### [address] Lymphocytes (Bld) [#/Vol] 3.0 10*3/uL Normal 1.00-4.8 [facility] Comment on above: Performed By: #### B COMMUNITY DEVELOPMENT TECHNICIAN, BMP, LIPID, CBC, A1C WTH eA #### [address] Lymphocytes/100 WBC (Bld) 38.9 % Normal . [facility] Comment on above: Performed By: #### B COMMUNITY DEVELOPMENT TECHNICIAN, BMP, LIPID, CBC, A1C WTH eA #### [address] MCH (RBC) [Entitic mass] 30.1 pg Normal 27.5-35.2 [facility] Comment on above: Performed By: #### B COMMUNITY DEVELOPMENT TECHNICIAN, BMP, LIPID, CBC, A1C WTH eA #### [address] MCV (RBC) [Entitic vol] 90.2 fL Normal 83.5-101 [facility] Comment on above: Performed By: #### B COMMUNITY DEVELOPMENT TECHNICIAN, BMP, LIPID, CBC, A1C WTH eA #### [address] Mean Corpuscular HGB Conc 33.3 g/dL Normal 32.5-35.6 [facility] Comment on above: Performed By: #### B COMMUNITY DEVELOPMENT TECHNICIAN, BMP, LIPID, CBC, A1C WTH eA #### [address] [address] [place] [address] [place] Monocytes (Bld) [#/Vol] 0.7 10*3/uL Normal 0.0-0.8 [facility] Comment on above: Performed By: #### B COMMUNITY DEVELOPMENT TECHNICIAN, BMP, LIPID, CBC, A1C WTH eA #### [address] Monocytes/100 WBC (Bld) 8.6 % Normal . [facility] Comment on above: Performed By: #### B COMMUNITY DEVELOPMENT TECHNICIAN, BMP, LIPID, CBC, A1C WTH eA #### [place] [address] [place] Neutrophils (Bld) [#/Vol] 3.9 10*3/uL Normal 1.8-7.7 [facility] Comment on above: Performed By: #### B COMMUNITY DEVELOPMENT TECHNICIAN, BMP, LIPID, CBC, A1C WTH eA #### [address] Neutrophils/100 WBC (Bld) 50.3 % Normal . [facility] Comment on above: Performed By: #### B COMMUNITY DEVELOPMENT TECHNICIAN, BMP, LIPID, CBC, A1C WTH eA #### [place] [address] [place] Nucleated RBC/100 WBC (Bld) [Ratio] 0.1 % Normal 0-0.5 [facility] Comment on above: Performed By: #### B COMMUNITY DEVELOPMENT TECHNICIAN, BMP, LIPID, CBC, A1C WTH eA #### [place] [address] [place] Platelet mean volume (Bld) [Entitic vol] 9.4 fL Normal 6.6-10.1 [facility] Comment on above: Performed By: #### B COMMUNITY DEVELOPMENT TECHNICIAN, BMP, LIPID, CBC, A1C WTH eA #### [place] [address] [place] Platelets (Bld) [#/Vol] 306 10*3/uL Normal 150-450 [facility] Comment on above: Performed By: #### B COMMUNITY DEVELOPMENT TECHNICIAN, BMP, LIPID, CBC, A1C WTH eA #### [address] [place] [address] [place] RBC (Bld) [#/Vol] 4.52 10*6/uL Normal 3.90-5.60 [facility] Comment on above: Performed By: #### B COMMUNITY DEVELOPMENT TECHNICIAN, BMP, LIPID, CBC, A1C WTH eA #### [facility] [address] [place] [address] [place] WBC (Bld) [#/Vol] 7.7 10*3/uL Normal 4.5-11.0 [facility] Comment on above: Performed By: #### B COMMUNITY DEVELOPMENT TECHNICIAN, BMP, LIPID, CBC, A1C WT eA #### [facility] [address] Creatinine and Glomerular fi ltration rate.predicted panel (S/P/Bld)Ordered By: Alma Kan on 01-09-2022 Creatinine [Mass/Vol] 1.25 mg/dL 0.64-1.27 [facility] Eosinophils Auto (Bld) [#/Vo l]Ordered By: Alma Kan on 01-09-2022 Eosinophils (Bld) [#/Vol] 0.1 10*3/uL 0.0-0.45 [facility] Eosinophils/100 WBC Auto (Bl d)Ordered By: Alma Kan on 01-09-2022 Eosinophils/100 WBC (Bld) 1.9 % . [facility] Erythrocyte distribution wid th Auto (RBC) [Ratio]Ordered By: Alma Kan on 01-09-2022 Erythrocyte distribution width (RBC) [Ratio] 13.0 % 12.0-14.8 [facility] Estimated glomerular filtrat ion rate (GFR) non- AmericanOrdered By: Alma Kan on 01-09-2022 GFR/1.73 sq M.predicted among non-blacks MDRD (S/P/Bld) [Vol rate/Area] 59 mL/Min [facility] Glucose mean value [Mass/vol ume] in Blood Estimated from glycated hemoglobinOrdered By: Alma Kan on 01-09-2022 Average glucose Estimated from glycated hemoglobin (Bld) [Mass/Vol] 160 mg/dL [facility] Hematocrit Auto (Bld) [Volum e fraction]Ordered By: Alma Kan on 01-09-2022 Hematocrit (Bld) [Volume fraction] 40.8 % 38.8-50.0 [facility] Hemoglobin A1c percentageOrd ered By: Alma Kan on 01-09-2022 HbA1c (Bld) [Mass fraction] 7.2 % 4.3-5.6 [facility] Comment on above: Increased risk for d iabetes: 5.7 - 6.4 diabetes: >6.4 glycemic control for adults with diabetes: <7.0 Laboratory - Chemistry and C hemistry - challengeOrdered By: Alma Kan on 01-09-2022 Natriuretic peptide B (Bld) [Mass/Vol] 90.0 pg/mL 5-100 [facility] Laboratory - Hematology and Cell countsOrdered By: Alma Kan on 01-09-2022 Nucleated RBC/100 WBC (Bld) [Ratio] 0.1 % 0-0.5 [facility] Lipid Panelon 01-09-2022 Cholesterol [Mass/Vol] 157 mg/dL Normal 140-200 [facility] Comment on above: Result Comment: Chol less than 200 mg/dl low risk Chol 201-239 mg/dl borderline risk Chol 240 mg/dl and greater high risk Performed By: #### B COMMUNITY DEVELOPMENT TECHNICIAN, BMP, LIPID, CBC, A1C WT eA #### [facility] [address] Cholesterol in HDL [Mass/Vol] 26 mg/dL Low 29-71 [facility] Comment on above: Result Comment: HDL CHOL ATP-III CLASSIFICATION Cardiovascular Risk HDL > or equal to 60 mg/dL LOW HDL < 40 mg/dL HIGH Performed By: #### B COMMUNITY DEVELOPMENT TECHNICIAN, BMP, LIPID, CBC, A1C WT eA #### [facility] [id number] [facility] Cholesterol.total/Shi sterol in HDL [Mass ratio] 6.0 {ratio} Normal <5.0 [facility] Comment on above: Result Comment: PERF ORMED BY: [facility] [address] [place] [address] PATHOLOGIST DESIGN AGENT YURI ORTA M.D. Performed By: #### B COMMUNITY DEVELOPMENT TECHNICIAN, BMP, LIPID, CBC, A1C WTH eA #### [facility] [address] LDL Cholesterol,Calculated 86 mg/dL Normal 0-100 [facility] Comment on above: Result Comment: LDL ATP III CLASSIFICATION LDL less than 100 mg/dL Optimal LDL 100-129 mg/dL Near or above optimal LDL 130-159 mg/dL Borderline high LDL 160-189 mg/dL High LDL greater than 189 mg/dL Very high Performed By: #### B COMMUNITY DEVELOPMENT TECHNICIAN, BMP, LIPID, CBC, A1C WTH eA #### [facility] [address] Triglyceride w/Reflex 227 mg/dL High 35-149 [facility] Comment on above: Result Comment: TRIG ATP III CLASSIFICATION TRIG less than 150 mg/dL Normal TRIG 150-199 mg/dL Borderline high TRIG 200-500 mg/dL High TRIG greater than 500 mg/dL Very high Standard traceable to the Center for Disease Conrtrol and Prevention (CDC) test method. Performed By: #### B COMMUNITY DEVELOPMENT TECHNICIAN, BMP, LIPID, CBC, A1C WTH eA #### [facility] [address] VLDL CHOLESTEROL 45 mg/dL Normal [facility] Comment on above: Performed By: #### B COMMUNITY DEVELOPMENT TECHNICIAN, BMP, LIPID, CBC, A1C WTH eA #### [facility] [address] Lymphocytes Auto (Bld) [#/Vo l]Ordered By: Alma Kan on 01-09-2022 Lymphocytes (Bld) [#/Vol] 3.0 10*3/uL 1.00-4.8 [facility] Lymphocytes/100 WBC Auto (Bl d)Ordered By: Alma Kan on 01-09-2022 Lymphocytes/100 WBC (Bld) 38.9 % . [facility] MCH Auto (RBC) [Entitic mass ]Ordered By: Alma Kan on 01-09-2022 MCH (RBC) [Entitic mass] 30.1 pg 27.5-35.2 [facility] MCHC Auto (RBC) [Mass/Vol]Or dered By: Alma Kan on 01-09-2022 MCHC (RBC) [Mass/Vol] 33.3 g/dL 32.5-35.6 [facility] MCV Auto (RBC) [Entitic vol] Ordered By: Alma Kan on 01-09-2022 MCV (RBC) [Entitic vol] 90.2 fL 83.5-101 F [facility] Monocytes Auto (Bld) [#/Vol] Ordered By: Alma Kan on 01-09-2022 Monocytes (Bld) [#/Vol] 0.7 10*3/uL 0.0-0.8 [facility] Monocytes/100 WBC Auto (Bld) Ordered By: Alma Kan on 01-09-2022 Monocytes/100 WBC (Bld) 8.6 % . [facility] Neutrophils Auto (Bld) [#/Vo l]Ordered By: Alma Kan on 01-09-2022 Neutrophils (Bld) [#/Vol] 3.9 10*3/uL 1.8-7.7 [facility] Neutrophils/100 WBC Auto (Bl d)Ordered By: Alma Kan on 01-09-2022 Neutrophils/100 WBC (Bld) 50.3 % . [facility] No Panel InformationOrdered By: Alma Kan on 01-09-2022 Estimated GFR () > 60 mL/Min [facility] Comment on above: GFR estimated refere nce range: According to KDOQI guidelines, <60 ml/min/1.73m2 is sufficient to diagnose a patient with chronic kidney disease. Pharmacy Creatinine Clearance (Chem N/A [facility] Platelet mean volume Auto (B ld) [Entitic vol]Ordered By: Alma Kan on 01-09-2022 Platelet mean volume (Bld) [Entitic vol] 9.4 fL 6.6-10.1 [facility] Platelets Auto (Bld) [#/Vol] Ordered By: Alma Kan on 01-09-2022 Platelets (Bld) [#/Vol] 306 10*3/uL 150-450 [facility] RBC Auto (Bld) [#/Vol]Ordere d By: Alma Kan on 01-09-2022 RBC (Bld) [#/Vol] 4.52 10*6/uL 3.90-5.60 [facility] Serum or plasma calcium yaneth urement (mass/volume)Ordered By: Alma Kan on 01-09-2022 Calcium [Mass/Vol] 11.0 mg/dL 8.2-10.2 [facility] Serum or plasma chloride charity surement (moles/volume)Ordered By: Alma Kan on 01-09-2022 Chloride [Moles/Vol] 106 mmol/L 95-114 [facility] Serum or plasma glucose yaneth urement (mass/volume)Ordered By: Alma Kan on 01-09-2022 Glucose [Mass/Vol] 120 mg/dL 70-100 [facility] Comment on above: ADA recommended refe rence range Random Glucose Reference Range is dependent on time and content of last meal. Glucose of more than 200 mg/dL in a nonstressed, ambulatory subject supports the diagnosis of Diabetes Mellitus. Serum or plasma high density lipoprotein (HDL) cholesterol measurementOrdered By: Alma Kan on 01-09-2022 Cholesterol in HDL [Mass/Vol] 26 mg/dL 29-71 [facility] Comment on above: HDL CHOL ATP-III CLA SSIFICATION Cardiovascular Risk HDL > or equal to 60 mg/dL LOW HDL < 40 mg/dL HIGH Serum or plasma potassium me asurement (moles/volume)Ordered By: Alma Kan on 01-09-2022 Potassium [Moles/Vol] 4.3 mmol/L 3.5-5.1 [facility] Serum or plasma sodium measu rement (moles/volume)Ordered By: Alma Kan on 01-09-2022 Sodium [Moles/Vol] 136 mmol/L 136-146 [facility] Serum or plasma total carbon dioxide measurement (moles/volume)Ordered By: Alma Kan on 01-09-2022 CO2 [Moles/Vol] 25.5 mmol/L 22.0-30.0 [facility] Serum or plasma total choles terol/high density lipoprotein (HDL) cholesterol mass ratOrdered By: Alma Kan on 01-09-2022 Cholesterol.total/Shi sterol in HDL [Mass ratio] 6.0 {ratio} <5.0 [facility] Serum or plasma urea nitroge n measurement (mass/volume)Ordered By: Alma Kan on 01-09-2022 Urea nitrogen [Mass/Vol] 22 mg/dL 9 [facility] Triglyceride [Mass/volume] i n Serum or PlasmaOrdered By: Alma Kan on 01-09-2022 Triglyceride [Mass/Vol] 227 mg/dL 35-149 [facility] Comment on above: TRIG ATP III CLASSIF ICATION TRIG less than 150 mg/dL Normal TRIG 150-199 mg/dL Borderline high TRIG 200-500 mg/dL High TRIG greater than 500 mg/dL Very high Standard traceable to the Center for Disease Conrtrol and Prevention (CDC) test method. CT ABDOMEN PELVIS WO CONTRAS T Additional Contrast? Noneon 09-11-2021 Findings compatible with old medical renal disease. No evidence of renal stones, obstructive process or ureterolithiasis at this time. Cholelithiasis. Extensive atherosclerotic vascular calcifications. Circumscribed benign lipoma in the left gluteus medius muscle. PN RIS CONSOLIDATED EXAMINATION: CT OF THE ABDOMEN AND PELVIS WITHOUT CONTRAST 09/11/2021 3:21 pm TECHNIQUE: CT of the abdomen and pelvis was performed without the administration of intravenous contrast. Multiplanar reformatted images are provided for review. Dose modulation, iterative reconstruction, and/or weight based adjustment of the mA/kV was utilized to reduce the radiation dose to as low as reasonably achievable. COMPARISON: None. HISTORY: ORDERING SYSTEM PROVIDED HISTORY: Uric aciduria TECHNOLOGIST PROVIDED HISTORY: Uric aciduria, r/o kidney stones FINDINGS: The lung bases appear clear. No evidence of pleural or pericardial effusion. No evidence of threshold enlarged adenopathy. Prominent calcifications in the aorta and vessels to the pelvis, as well as branching vessels. Osseous structures: Normal alignment. Spondylitic endplate degenerative changes, greater in the lower thoracic spine toward the right. Lipoma in the left gluteus medius muscle adjacent to the left iliac wing just above the acetabulum measuring approximately 5 0.0 x 2.7 cm and 6 cm in length. Fatty infiltration of the buttock muscles. Liver: Unremarkable in appearance. Gallbladder: Stones in the dependent portion. No evidence of pericholecystic fluid. Spleen: Unremarkable in appearance. Adrenals: Normal in appearance. Pancreas: Normal in appearance. Kidneys: Normal appearance of the parenchyma. Some stranding density in the perinephric fat suggesting old medical renal disease. GI/bowel: Unremarkable in appearance. Pelvic structures: Vascular calcifications. Urinary bladder appears unremarkable. Region of the prostate and seminal vesicles appear unremarkable. Perirectal fat is normal in appearance. [facility] RIS CONSOLIDATED Radha Cummings MD - 09/11/2021 EXAMINATION: CT OF THE ABDOMEN AND PELVIS WITHOUT CONTRAST 09/11/2021 3:21 pm TECHNIQUE: CT of the abdomen and pelvis was performed without the administration of intravenous contrast. Multiplanar reformatted images are provided for review. Dose modulation, iterative reconstruction, and/or weight based adjustment of the mA/kV was utilized to reduce the radiation dose to as low as reasonably achievable. COMPARISON: None. HISTORY: ORDERING SYSTEM PROVIDED HISTORY: Uric aciduria TECHNOLOGIST PROVIDED HISTORY: Uric aciduria, r/o kidney stones FINDINGS: The lung bases appear clear. No evidence of pleural or pericardial effusion. No evidence of threshold enlarged adenopathy. Prominent calcifications in the aorta and vessels to the pelvis, as well as branching vessels. Osseous structures: Normal alignment. Spondylitic endplate degenerative changes, greater in the lower thoracic spine toward the right. Lipoma in the left gluteus medius muscle adjacent to the left iliac wing just above the acetabulum measuring approximately 5 0.0 x 2.7 cm and 6 cm in length. Fatty infiltration of the buttock muscles. Liver: Unremarkable in appearance. Gallbladder: Stones in the dependent portion. No evidence of pericholecystic fluid. Spleen: Unremarkable in appearance. Adrenals: Normal in appearance. Pancreas: Normal in appearance. Kidneys: Normal appearance of the parenchyma. Some stranding density in the perinephric fat suggesting old medical renal disease. GI/bowel: Unremarkable in appearance. Pelvic structures: Vascular calcifications. Urinary bladder appears unremarkable. Region of the prostate and seminal vesicles appear unremarkable. Perirectal fat is normal in appearance. IMPRESSION: Findings compatible with old medical renal disease. No evidence of renal stones, obstructive process or ureterolithiasis at this time. Cholelithiasis. Extensive atherosclerotic vascular calcifications. Circumscribed benign lipoma in the left gluteus medius muscle. [employer] Phone: Radiology Study observation (narrative) [employer] Phone: CT ABDOMEN PELVIS WO CONTRAS T Additional Contrast? NoneOrdered By: Radha Cummings on 09-11-2021 [facility] Work Phone: Basic Metabolic Profon 06-17 (cont.) Normal [facility] Comment on above: Result Comment: Aver age GFR for 60-69 years old: 85 mL/min/1.73sq m Chronic Kidney Disease: <60 mL/min/1.73sq m Kidney failure: <15 mL/min/1.73sq m eGFR calculated using average adult body mass. Additional eGFR calculator available at: http://www.Mem[employer]/multiple_crcl_2011.htm Performed By: #### B MEHUL, CDP #### [facility] [address] [place] [address] Data Entry Technician: Eder Herrera MD Anion gap [Moles/Vol] 11 mmol/L Normal 02-08 [facility] Comment on above: Performed By: #### B MEHUL, CDP #### [facility] [address] [place] [address] Data Entry Technician: Eder Herrera MD BUN/CRE Ratio 11 Normal 02-11 [facility] Comment on above: Performed By: #### B MEHUL, CDP #### [facility] [address] [place] [address] Data Entry Technician: Eder Herrera MD Calcium [Mass/Vol] 9.4 mg/dL Normal 8.6-10.4 [facility] Comment on above: Performed By: #### B MEHUL, CDP #### [facility] [address] [place] [address] Data Entry Technician: Eder Herrera MD Chloride [Moles/Vol] 102 mmol/L Normal 98-107 [facility] Comment on above: Performed By: #### B MP, CDP #### [facility] [address] [place] [address] Data Entry Technician: Eder Herrera MD CO2 [Moles/Vol] 24 mmol/L Normal 20-31 [facility] Comment on above: Performed By: #### B MP, CDP #### [facility] [address] [place], [place] [id number] Data Entry Technician: Eder Herrera MD Creatinine [Mass/Vol] 1.19 mg/dL Normal 0.70-1.20 [facility] Comment on above: Performed By: #### B MP, CDP #### [facility] [address] [place], [place] [id number] Data Entry Technician: Eder Herrera MD GFR, Amer >60 Normal >60 [facility] Comment on above: Performed By: #### B MP, CDP #### [facility] [address] [place], [place] [id number] Data Entry Technician: Eder Herrera MD GFR,non Amer >60 Normal >60 [facility] Comment on above: Performed By: #### B MP, CDP #### [facility] [address] [place], [place] [id number] Data Entry Technician: Eder Herrera MD Glucose [Mass/Vol] 245 mg/dL High 70-99 [facility] Comment on above: Performed By: #### B MP, CDP #### [facility] [address] [place], [place] [id number] Data Entry Technician: Eder Herrera MD Potassium [Moles/Vol] 4.2 mmol/L Normal 3.7-5.3 [facility] Comment on above: Performed By: #### B MP, CDP #### [facility] [address] [place], [place] [id number] Data Entry Technician: Eder Herrera MD Sodium [Moles/Vol] 137 mmol/L Normal 135-144 [facility] Comment on above: Performed By: #### B MP, CDP #### [facility] [address] [place], [place] [id number] Data Entry Technician: Eder Herrera MD Urea nitrogen [Mass/Vol] 13 mg/dL Normal 8-23 [facility] Comment on above: Performed By: #### B MEHUL, CDP #### [facility] [address] [place] [address] Data Entry Technician: Eder Herrera MD Staging: NOT REPORTED Normal [facility] Comment on above: Performed By: #### B MEHUL, CDP #### [facility] [address] [place] [address] Data Entry Technician: Eder Herrera MD CBC with Diffon 06-17-2021 Abs. Basophil 0.10 k/uL Normal 0.0-0.2 [facility] Comment on above: Performed By: #### B MEHUL, CDP #### [facility] [address] [place], [place] [id number] Data Entry Technician: Eder Herrera MD Abs.Neutrophil (Seg) 2.70 k/uL Normal 2.1-6.5 [facility] Comment on above: Performed By: #### B MEHUL, CDP #### [facility] [address] [place] [address] Data Entry Technician: Eder Herrera MD Auto Diff Performed YES Normal [facility] Comment on above: Performed By: #### B MEHUL, CDP #### [facility] [address] [place] [address] Data Entry Technician: Eder Herrera MD Basophils/100 WBC (Bld) 1 % Normal 0-2 [facility] Comment on above: Performed By: #### B MEHUL, CDP #### [facility] [address] [place], [place] [id number] Data Entry Technician: Eder Herrera MD Eosinophils (Bld) [#/Vol] 0.20 10*3/uL Normal 0.0-0.4 [facility] Comment on above: Performed By: #### B MEHUL, CDP #### [facility] [address] [place] [id number] Data Entry Technician: Eder Herrera MD Eosinophils/100 WBC (Bld) 3 % Normal 0-5 [facility] Comment on above: Performed By: #### B MEHUL, CDP #### [facility] [address] [place], [place] [id number] Data Entry Technician: Eder Herrera MD Erythrocyte distribution width (RBC) [Ratio] 12.6 % Normal 12.1-15.2 [facility] Comment on above: Performed By: #### B MEHUL, CDP #### [facility] [address] [place], [place] [id number] Data Entry Technician: Eder Herrera MD Hematocrit (Bld) [Volume fraction] 34.3 % Low 41-53 [facility] Comment on above: Performed By: #### B MEHUL, CDP #### [facility] [address] [place], [place] [id number] Data Entry Technician: Eder Herrera MD Hemoglobin (Bld) [Mass/Vol] 11.6 g/dL Low 13.5-17.5 [facility] Comment on above: Performed By: #### B MEHUL, CDP #### [facility] [address] [place], [place] [id number] Data Entry Technician: Eder Herrera MD Lymphocytes (Bld) [#/Vol] 1.90 10*3/uL Normal 1.0-4.8 [facility] Comment on above: Performed By: #### B MEHUL, CDP #### [facility] [address] [place] [address] Data Entry Technician: Eder Herrera MD Lymphocytes/100 WBC (Bld) 34 % Normal 13-44 [facility] Comment on above: Performed By: #### B MEHUL, CDP #### [facility] [address] [place], [place] [id number] Data Entry Technician: Eder Herrera MD MCH (RBC) [Entitic mass] 29.6 pg Normal 26-34 [facility] Comment on above: Performed By: #### B MP, CDP #### [facility] [address] [place], [place] [id number] Data Entry Technician: Eder Herrera MD MCHC (RBC) [Mass/Vol] 33.7 g/dL Normal 31-37 [facility] Comment on above: Performed By: #### B MP, CDP #### [facility] [address] [place], [place] [id number] Data Entry Technician: Eder Herrera MD MCV (RBC) [Entitic vol] 87.9 fL Normal 80-[address] [facility] Comment on above: Performed By: #### B MEHUL, CDP #### [facility] [address] [place], [place] [id number] Data Entry Technician: Eder Herrera MD Monocytes (Bld) [#/Vol] 0.80 10*3/uL Normal 0.0-1.0 [facility] Comment on above: Performed By: #### B MP, CDP #### [facility] [address] [place], [place] [id number] Data Entry Technician: Eder Herrera MD Monocytes/100 WBC (Bld) 15 % High 5-[address] [facility] Comment on above: Performed By: #### B MP, CDP #### [facility] [address] [place] [address] Data Entry Technician: Eder Herrera MD Neutrophil (Seg) 47 % Normal 39-75 [facility] Comment on above: Performed By: #### B MP, CDP #### [facility] [address] [place], [place] [id number] Data Entry Technician: Eder Herrera MD Platelets (Bld) [#/Vol] 371 10*3/uL Normal 140-450 [facility] Comment on above: Performed By: #### B MEHUL, CDP #### [facility] [address] [place] [address] Data Entry Technician: Eder Herrera MD RBC (Bld) [#/Vol] 3.91 10*6/uL Low 4.5-5.9 [facility] Comment on above: Performed By: #### B MEHUL, CDP #### [facility] [address] [place] [address] Data Entry Technician: Eder Herrera MD WBC (Bld) [#/Vol] 5.7 10*3/uL Normal 3.5-11.0 [facility] Comment on above: Performed By: #### B MEHLU, CDP #### [facility] [address] [place] [address] Data Entry Technician: Eder Herrera MD Abs.Imm.Granulocyte NOT REPORTED Normal 0.00-0.30 [facility] Comment on above: Performed By: #### B MEHUL, CDP #### [facility] [address] [place] [address] Data Entry Technician: Eder Herrera MD Immature Granulocyte NOT REPORTED Normal 0 [facility] Comment on above: Performed By: #### B MEHUL, CDP #### [facility] [address] [place] [address] Data Entry Technician: Eder Herrera MD MPV NOT REPORTED Normal 6.0-12.0 [facility] Comment on above: Performed By: #### B MEHUL, CDP #### [facility] [address] [place] [address] Data Entry Technician: Eder Herrera MD NRBC Automated NOT REPORTED Normal [facility] Comment on above: Performed By: #### B MEHUL, CDP #### [facility] [address] [place] [address] Data Entry Technician: Eder Herrera MD Platelet Comment NOT REPORTED Normal [facility] Comment on above: Performed By: #### B MP, CDP #### [facility] [address] [place], [place] [id number] Data Entry Technician: Eder Herrera MD RBC morphology finding Nom (Bld) NOT REPORTED Normal [facility] Comment on above: Performed By: #### B MP, CDP #### [facility] [address] [place] [address] Data Entry Technician: Eder Herrera MD WBC Morphology NOT REPORTED Normal [facility] Comment on above: Performed By: #### B MP, CDP #### [facility] [address] [place] [address] Data Entry Technician: Eder Herrera MD Basic Metabolic Panelon Anion gap [Moles/Vol] 9 mmol/L 9 - 17 mmol/L [facility] Calcium [Mass/Vol] 8.8 mg/dL 8.6 - 10. 4 mg/dL [facility] Chloride [Moles/Vol] 101 mmol/L 98 - 10 7 mmol/L [facility] CO2 [Moles/Vol] 24 mmol/L 20 - 31 mmol/L [facility] Creatinine [Mass/Vol] 1.16 mg/dL 0.70 - 1.20 mg/dL [facility] GFR >60 >60 mL/min [facility] GFR Non- >60 >60 mL/min [facility] Glucose [Mass/Vol] 168 mg/dL High 70 - 99 mg/dL [facility] Interpretation and review of laboratory results Abnormal [facility] Potassium [Moles/Vol] 3.6 mmol/L Low 3.7 - 5.3 mmol/L [facility] Sodium [Moles/Vol] 134 mmol/L Low 135 - 144 mmol/L [facility] Urea nitrogen (BldV) [Mass/Vol] 18 mg/dL 8 - 23 mg/dL [facility] Urea nitrogen/Creatinine (Bld) [Mass ratio] 16 [facility] CBCon 06-01-2021 Hematocrit (Bld) [Volume fraction] 35.9 % Low 40.7 - 50.3 % [facility] Hemoglobin.gastrointest inal spec 1 Ql (Stl) 12.1 g/dL Low 13.0 - 17.0 g/dL [facility] Interpretation and review of laboratory results Abnormal [facility] MCH (RBC) [Entitic mass] 30.0 pg 25.2 - 33.5 pg [facility] MCHC (RBC) [Mass/Vol] 33.7 g/dL 28.4 - 34.8 g/dL [facility] MCV (RBC) [Entitic vol] 89.1 fL 82.6 - 102.9 fL [facility] NRBC Automated 0.0 0.0 per 100 WBC [facility] Platelet distribution width (Bld) [Ratio] 11.5 % Low 11.8 - 14.4 % [facility] Platelet mean volume (Bld) [Entitic vol] 10.4 fL 8.1 - 13.5 fL [facility] Platelets (Bld) [#/Vol] 178 10*3/uL [facility] RBC (Bld) [#/Vol] 4.03 10*6/uL Low 4.21 - 5.7 7 m/uL [facility] WBC (Bld) [#/Vol] 3.6 10*3/uL [facility] EKG Rhythm Stripon 2 [facility] Laboratory - Chemistry and C hemistry - challengeon 06-01-2021 GFR/1.73 sq M.predicted MDRD (S/P/Bld) [Vol rate/Area] [facility] Comment on above: Average GFR for 60-6 9 years old: 85 mL/min/1.73sq m Chronic Kidney Disease: <60 mL/min/1.73sq m Kidney failure: <15 mL/min/1.73sq m eGFR calculated using average adult body mass. Additional eGFR calculator available at: http://www.[employer].Fleep/multiple_crcl_2011.htm Stage 1: Some kidney damage normal GFR Stage 2: Mild kidney damage GFR 60-89 Stage 3: Moderate kidney damage GFR 30-59 Stage 4: Severe kidney damage GFR 15-29 Stage 5: Severe kidney damage GFR <15 ESRD - chronic treatment by dialysis or transplant Basic Metabolic Panelon Anion gap [Moles/Vol] 12 mmol/L 9 - 17 mmol/L [facility] Calcium [Mass/Vol] 8.7 mg/dL 8.6 - 10. 4 mg/dL [facility] Chloride [Moles/Vol] 105 mmol/L 98 - 10 7 mmol/L [facility] CO2 [Moles/Vol] 24 mmol/L 20 - 31 mmol/L [facility] Creatinine [Mass/Vol] 1.59 mg/dL High 0.70 - 1.20 mg/dL [facility] GFR 54 mL/min Low >60 [facility] GFR Non- 44 mL/min Low >60 [facility] Glucose [Mass/Vol] 140 mg/dL High 70 - 99 mg/dL [facility] Interpretation and review of laboratory results Abnormal [facility] Potassium [Moles/Vol] 3.9 mmol/L 3.7 - 5.3 mmol/L [facility] Sodium [Moles/Vol] 141 mmol/L 135 - 144 mmol/L [facility] Urea nitrogen (BldV) [Mass/Vol] 21 mg/dL 8 - 23 mg/dL [facility] Urea nitrogen/Creatinine (Bld) [Mass ratio] 13 [facility] CBCon 05-31-2021 Hematocrit (Bld) [Volume fraction] 35.9 % Low 40.7 - 50.3 % [facility] Hemoglobin.gastrointest inal spec 1 Ql (Stl) 12.0 g/dL Low 13.0 - 17.0 g/dL [facility] Interpretation and review of laboratory results Abnormal [facility] MCH (RBC) [Entitic mass] 30.3 pg 25.2 - 33.5 pg [facility] MCHC (RBC) [Mass/Vol] 33.4 g/dL 28.4 - 34.8 g/dL [facility] MCV (RBC) [Entitic vol] 90.7 fL 82.6 - 102.9 fL [facility] NRBC Automated 0.0 0.0 per 100 WBC [facility] Platelet distribution width (Bld) [Ratio] 11.7 % Low 11.8 - 14.4 % [facility] Platelet mean volume (Bld) [Entitic vol] 10.6 fL 8.1 - 13.5 fL [facility] Platelets (Bld) [#/Vol] 188 10*3/uL [facility] RBC (Bld) [#/Vol] 3.96 10*6/uL Low 4.21 - 5.7 7 m/uL [facility] WBC (Bld) [#/Vol] 4.1 10*3/uL [facility] EKG [place]hythm [place] [facility] Laboratory - Chemistry and C hemistry - challengeon 05-31-2021 GFR/1.73 sq M.predicted MDRD (S/P/Bld) [Vol rate/Area] [facility] Comment on above: Average GFR for 60-6 9 years old: 85 mL/min/1.73sq m Chronic Kidney Disease: <60 mL/min/1.73sq m Kidney failure: <15 mL/min/1.73sq m eGFR calculated using average adult body mass. Additional eGFR calculator available at: http://www.[employer]/multiple_crcl_2012.htm Stage 1: Some kidney damage normal GFR Stage 2: Mild kidney damage GFR 60-89 Stage 3: Moderate kidney damage GFR 30-59 Stage 4: Severe kidney damage GFR 15-29 Stage 5: Severe kidney damage GFR <15 ESRD - chronic treatment by dialysis or transplant Basic Metabolic Panelon Anion gap [Moles/Vol] 11 mmol/L 9 - 17 mmol/L [facility] Calcium [Mass/Vol] 8.8 mg/dL 8.6 - 10. 4 mg/dL [facility] Chloride [Moles/Vol] 101 mmol/L 98 - 10 7 mmol/L [facility] CO2 [Moles/Vol] 23 mmol/L 20 - 31 mmol/L [facility] Creatinine [Mass/Vol] 1.61 mg/dL High 0.70 - 1.20 mg/dL [facility] GFR 53 mL/min Low >60 [facility] GFR Non- 44 mL/min Low >60 [facility] Glucose [Mass/Vol] 114 mg/dL High 70 - 99 mg/dL [facility] Interpretation and review of laboratory results Abnormal [facility] Potassium [Moles/Vol] 3.5 mmol/L Low 3.7 - 5.3 mmol/L [facility] Sodium [Moles/Vol] 135 mmol/L 135 - 144 mmol/L [facility] Urea nitrogen (BldV) [Mass/Vol] 24 mg/dL High 8 - 23 mg/dL [facility] Urea nitrogen/Creatinine (Bld) [Mass ratio] 15 [facility] CBCon 05-30-2021 Hematocrit (Bld) [Volume fraction] 35.4 % Low 40.7 - 50.3 % [facility] Hemoglobin.gastrointest inal spec 1 Ql (Stl) 11.6 g/dL Low 13.0 - 17.0 g/dL [facility] Interpretation and review of laboratory results Abnormal [facility] MCH (RBC) [Entitic mass] 29.5 pg 25.2 - 33.5 pg [facility] MCHC (RBC) [Mass/Vol] 32.8 g/dL 28.4 - 34.8 g/dL [facility] MCV (RBC) [Entitic vol] 90.1 fL 82.6 - 102.9 fL [facility] NRBC Automated 0.0 0.0 per 100 WBC [facility] Platelet distribution width (Bld) [Ratio] 11.8 % 11.8 - 14.4 % [facility] Platelet mean volume (Bld) [Entitic vol] 10.7 fL 8.1 - 13.5 fL [facility] Platelets (Bld) [#/Vol] 208 10*3/uL [facility] RBC (Bld) [#/Vol] 3.93 10*6/uL Low 4.21 - 5.7 7 m/uL [facility] WBC (Bld) [#/Vol] 3.5 10*3/uL [facility] EKG Rhythm Stripon 2 [facility] Laboratory - Chemistry and C hemistry - challengeon 05-30-2021 GFR/1.73 sq M.predicted MDRD (S/P/Bld) [Vol rate/Area] [facility] Comment on above: Average GFR for 60-6 9 years old: 85 mL/min/1.73sq m Chronic Kidney Disease: <60 mL/min/1.73sq m Kidney failure: <15 mL/min/1.73sq m eGFR calculated using average adult body mass. Additional eGFR calculator available at: http://www.[employer].Fleep/multiple_crcl_2012.htm Stage 1: Some kidney damage normal GFR Stage 2: Mild kidney damage GFR 60-89 Stage 3: Moderate kidney damage GFR 30-59 Stage 4: Severe kidney damage GFR 15-29 Stage 5: Severe kidney damage GFR <15 ESRD - chronic treatment by dialysis or transplant Troponinon 05-30-2021 Interpretation and review of laboratory results Abnormal [facility] Troponin Interp NOT REPORTED [facility] Trop[facility] T NOT REPORTED <0.03 ng/mL [facility], High Sensitivity 54 ng/L Critically high 0 - 22 ng/L [facility] Comment on above: High Sensitivity Troponin values cannot be compared with other Troponin methodologies. Patients with high levels of Biotin oral intake (i.e >5mg/day) may have falsely decreased Troponin levels. Samples collected within 8 hours of biotin intake may require additional information for diagnosis. [facility] XR HIP 2-3 VW W PELVIS LEFTo n 05-30-2021 No acute osseous abnormality in the pelvis or left hip. Mild degenerative changes. [facility] EXAMINATION: ONE X-RAY VIEW OF THE PELVIS AND TWO X-RAY VIEWS LEFT HIP 05/30/2021 11:19 am COMPARISON: None. HISTORY: ORDERING SYSTEM PROVIDED HISTORY: left hip pain TECHNOLOGIST PROVIDED HISTORY: left hip pain FINDINGS: Pelvic bones are intact. There is no evidence of acute fracture or dislocation at the hips. There is mild joint space narrowing and spurring at both hips. No evidence of articular surface collapse. Degenerative changes are noted in the lower lumbar spine. [facility] Kerrie Elder DO - 05/30/2021 EXAMINATION: ONE X-RAY VIEW OF THE PELVIS AND TWO X-RAY VIEWS LEFT HIP 05/30/2021 11:19 am COMPARISON: None. HISTORY: ORDERING SYSTEM PROVIDED HISTORY: left hip pain TECHNOLOGIST PROVIDED HISTORY: left hip pain FINDINGS: Pelvic bones are intact. There is no evidence of acute fracture or dislocation at the hips. There is mild joint space narrowing and spurring at both hips. No evidence of articular surface collapse. Degenerative changes are noted in the lower lumbar spine. IMPRESSION: No acute osseous abnormality in the pelvis or left hip. Mild degenerative changes. [facility] Work Phone: Radiology Study observation (narrative) [facility] Work Phone: XR HIP 2-3 VW W PELVIS LEFTO rdered By: Kerrie Elder on 05-30-2021 [facility] Work Phone: Basic Metabolic Panelon Anion gap [Moles/Vol] 14 mmol/L 9 - 17 mmol/L [facility] Calcium [Mass/Vol] 9.7 mg/dL 8.6 - 10. 4 mg/dL [facility] Chloride [Moles/Vol] 102 mmol/L 98 - 10 7 mmol/L [facility] CO2 [Moles/Vol] 23 mmol/L 20 - 31 mmol/L [facility] Creatinine [Mass/Vol] 1.54 mg/dL High 0.70 - 1.20 mg/dL [facility] GFR 56 mL/min Low >60 [facility] GFR Non- 46 mL/min Low >60 [facility] Glucose [Mass/Vol] 98 mg/dL 70 - 99 mg/dL [facility] Interpretation and review of laboratory results Abnormal [facility] Potassium [Moles/Vol] 3.2 mmol/L Low 3.7 - 5.3 mmol/L [facility] Sodium [Moles/Vol] 139 mmol/L 135 - 144 mmol/L [facility] Urea nitrogen (BldV) [Mass/Vol] 20 mg/dL 8 - 23 mg/dL [facility] Urea nitrogen/Creatinine (Bld) [Mass ratio] 13 [facility] Hematocrit (Bld) [Volume fraction] 39.5 % Low 40.7 - 50.3 % [facility] Hemoglobin.gastrointest inal spec 1 Ql (Stl) 13.1 g/dL 13.0 - 17.0 g/dL [facility] Interpretation and review of laboratory results Abnormal [facility] MCH (RBC) [Entitic mass] 29.6 pg 25.2 - 33.5 pg [facility] MCHC (RBC) [Mass/Vol] 33.2 g/dL 28.4 - 34.8 g/dL [facility] MCV (RBC) [Entitic vol] 89.4 fL 82.6 - 102.9 fL [facility] NRBC Automated 0.0 0.0 per 100 WBC [facility] Platelet distribution width (Bld) [Ratio] 11.8 % 11.8 - 14.4 % [facility] Platelet mean volume (Bld) [Entitic vol] 10.5 fL 8.1 - 13.5 fL [facility] Platelets (Bld) [#/Vol] 198 10*3/uL [facility] RBC (Bld) [#/Vol] 4.42 10*6/uL 4.21 - 5.7 7 m/uL [facility] WBC (Bld) [#/Vol] 4.4 10*3/uL [facility] phy procedure details panelon 05-29-2021 Cardiac Diagnostic Report Demographics Patient LAURA Cosby Date of Study 05/29/2021 Name Date of 1960 Gender Male Age 60 year(s) Race Room [id number]^ROSEMARIE Height: 72 inch, 182.88 cm Number Corporate [id number] Weight: 231 pounds, 104.8 kg ID # Patient [id number] BSA: 2.26 m^2 BMI: 31.33 kg/m^2 Acct # MR # [id number] Performing Alice Mars Physician Referring # Physician Assisting Physician Additional Comments H&P reviewed and patient examined by performing physician prior to the procedure on 05/29/2021 at 0755 No changes noted. If changes, see note below. ASA Classification II / Mallampati 2 : per Physician. Patient medications reviewed by Physician prior to procedure. Procedure Procedure Type: Diagnostic procedure: Lt Heart, Coronary Angio, LV pressure Complications: - No complication Indications: - NSTEMI Conclusions Procedure Summary Severe three vessel disease involving the mid LAD, circumflex and right coronary artery. However, the OM1 appears to be chronically totally occluded. Normal left ventricular end diastolic pressure. (LVEDP). Recommendations Consult to cardiothoracic surgery for consideration of multi-vessel coronary artery bypass grafting (CABG) vs multi-vessel stenting. However, give the patients multiple co-morbidities Dr. Pham and myself think that stenting may be a better option than CABG but will defer to CT surgery expertise. Signature - - Angiographic Findings Cardiac Arteries and Lesion Findings LMCA: Mild irregularities 10-20%. LAD: Lesion on Mid LAD: Mid subsection. LCx: Lesion on 1st Ob Ana: Ostial.100% stenosis. RCA: Lesion on Prox RCA: Proximal subsection.90% stenosis. Lesion on Dist RCA: Mid subsection.80% stenosis. Coronary Tree Dominance: Right LV function assessed as:Normal. Ejection Fraction + --+ + !Method !EF% ! + --+ + !Echocardiography !50 ! + --+ + Ventriculography Findings: Normal left ventricular end diastolic pressure (LVEDP) with no significant aortic valve gradient seen on pull-back across the aortic valve. Procedure Data Procedure Start Time: 05/29/2021 08:04. Procedure End Time: 05/29/2021 08:20. The procedure was explained in detail to the patient. Risks, complications and alternative treatments were reviewed. Written consent was obtained. Diagnostic Cath Status: Urgent Entry Locations - Retrograde Percutaneous access was performed through the Right Radial artery. A 6 Fr sheath was inserted. Hemostasis was successfully obtained using Pressure Dressing. Procedure Medications: - Oxygen 2 l/min. - Lidocaine HCl 1% 10mg/ml S.Q. 3 ml. - Nitroglycerin S.Q. 100 mcg. - Fentanyl I.V. 25 mcg. - Lidocaine HCl 1% 10mg/ml S.Q. 1 ml. - Heparin I.V. bolus 5000 units. - 0.9 % NaCl I.V. bolus 999 ml/hr. - Oxygen Mask 2 l/min. Catheters and Wires: - 6 Fr. Radial TIG 4.0 was used for Left coronary angiography. - 6F Catheter - Freddy was used for Right coronary angiography. - 6F Guide Catheter FR 4 was used for Right coronary angiography. Contrast Material: - Isovue 50374 ml Fluoroscopy Time: Diagnostic: 4:07 minutes. Total: 4:07 minutes. Estimated Blood Loss: 5 ml. Medical History Performed Procedures and Imaging Results - Echocardiographywas performed. Allergies - *No Known Allergies. Risk Factors The patient risk factors include:prior PCI;treated hypertension, family history of premature CAD, insulin-treated diabetes mellitus, chronic lung disease, last creatinine: 1.5 mg/dl and creatinine clearance: 76.64 ml/min. Admission Data Admission Date: 05/27/2021 Admission Status: Outpatient. Pre Admission Medications + +------+ + +--------- -+ + !Medication !Dosage!Times Per Day!Start date!Stop date !Comments ! + +------+ + +--------- -+ + (more content not included)... PN T [facility] Alice Mars MD - 05/29/2021 Cardiac Diagnostic Report Demographics Patient LAURA Cosby Date of Study 05/29/2021 Name Date of 1960 Gender Male Age 60 year(s) Race Room [id number]^ALISHA^ALICE Height: 72 inch, 182.88 cm Number Corporate [id number] Weight: 231 pounds, 104.8 kg ID # Patient [id number] BSA: 2.26 m^2 BMI: 31.33 kg/m^2 Acct # MR # [id number] Performing Alice aMrs Physician Referring # Physician Assisting Physician Additional Comments H&P reviewed and patient examined by performing physician prior to the procedure on 05/29/2021 at 0755 No changes noted. If changes, see note below. ASA Classification II / Mallampati 2 : per Physician. Patient medications reviewed by Physician prior to procedure. Procedure Procedure Type: Diagnostic procedure: Lt Heart, Coronary Angio, LV pressure Complications: - No complication Indications: - NSTEMI Conclusions Procedure Summary Severe three vessel disease involving the mid LAD, circumflex and right coronary artery. However, the OM1 appears to be chronically totally occluded. Normal left ventricular end diastolic pressure. (LVEDP). Recommendations Consult to cardiothoracic surgery for consideration of multi-vessel coronary artery bypass grafting (CABG) vs multi-vessel stenting. However, give the patients multiple co-morbidities Dr. Pham and myself think that stenting may be a better option than CABG but will defer to CT surgery expertise. Signature - - Angiographic Findings Cardiac Arteries and Lesion Findings LMCA: Mild irregularities 10-20%. LAD: Lesion on Mid LAD: Mid subsection. LCx: Lesion on 1st Ob Ana: Ostial.100% stenosis. RCA: Lesion on Prox RCA: Proximal subsection.90% stenosis. Lesion on Dist RCA: Mid subsection.80% stenosis. Coronary Tree Dominance: Right LV function assessed as:Normal. Ejection Fraction + --+ + !Method !EF% ! + --+ + !Echocardiography !50 ! + --+ + Ventriculography Findings: Normal left ventricular end diastolic pressure (LVEDP) with no significant aortic valve gradient seen on pull-back across the aortic valve. Procedure Data Procedure Start Time: 05/29/2021 08:04. Procedure End Time: 05/29/2021 08:20. The procedure was explained in detail to the patient. Risks, complications and alternative treatments were reviewed. Written consent was obtained. Diagnostic Cath Status: Urgent Entry Locations - Retrograde Percutaneous access was performed through the Right Radial artery. A 6 Fr sheath was inserted. Hemostasis was successfully obtained using Pressure Dressing. Procedure Medications: - Oxygen 2 l/min. - Lidocaine HCl 1% 10mg/ml S.Q. 3 ml. - Nitroglycerin S.Q. 100 mcg. - Fentanyl I.V. 25 mcg. - Lidocaine HCl 1% 10mg/ml S.Q. 1 ml. - Heparin I.V. bolus 5000 units. - 0.9 % NaCl I.V. bolus 999 ml/hr. - Oxygen Mask 2 l/min. Catheters and Wires: - 6 Fr. Radial TIG 4.0 was used for Left coronary angiography. - 6F Catheter - Freddy was used for Right coronary angiography. - 6F Guide Catheter FR 4 was used for Right coronary angiography. Contrast Material: - Isovue 74640 ml Fluoroscopy Time: Diagnostic: 4:07 minutes. Total: 4:07 minutes. Estimated Blood Loss: 5 ml. Medical History Performed Procedures and Imaging Results - Echocardiographywas performed. Allergies - *No Known Allergies. Risk Factors The patient risk factors include:prior PCI;treated hypertension, family history of premature CAD, insulin-treated diabetes mellitus, chronic lung disease, last creatinine: 1.5 mg/dl and creatinine clearance: 76.64 ml/min. Admission Data Admission Date: 05/27/2021 Admission Status: Outpatient. Pre Admission Medications + +------+ + +--------- -+ + !Medication !Dosage!Times Per Day!Start date!Stop date !Comments ! + +------+ + +--------- -+ + !Aspirin !81 mg ! ! ! ! ! + +------+ + +--------- -+ + !Enoxaparin (Lovenox)!40 mg ! ! ! ! ! + +------+ + +--------- -+ + -The patient shows CHF symptoms of MONTOYA. 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 [facility] [employer] Work Phone: [facility] Work Phone: [facility] [employer] Phone: EKG Rhythm Stripon 2 [facility] LAB [facility] Glucose, Whole Bloodon 05-29 Glucose [Mass/Vol] 97 mg/dL 74 - 100 mg/dL [facility] Glucose [Mass/Vol] 94 mg/dL 74 - 100 mg/dL [facility] Laboratory - Chemistry and C hemistry - challengeon 05-29-2021 GFR/1.73 sq M.predicted MDRD (S/P/Bld) [Vol rate/Area] [facility] Comment on above: Average GFR for 60-6 9 years old: 85 mL/min/1.73sq m Chronic Kidney Disease: <60 mL/min/1.73sq m Kidney failure: <15 mL/min/1.73sq m eGFR calculated using average adult body mass. Additional eGFR calculator available at: http://www.Mempile/multiple_crcl_2012.htm Stage 1: Some kidney damage normal GFR Stage 2: Mild kidney damage GFR 60-89 Stage 3: Moderate kidney damage GFR 30-59 Stage 4: Severe kidney damage GFR 15-29 Stage 5: Severe kidney damage GFR <15 ESRD - chronic treatment by dialysis or transplant Lipid Panelon 05-29-2021 Cholesterol [Mass/Vol] 109 mg/dL <200 [facility] Comment on above: Cholesterol Guidelines: <200 Desirable 200-240 Borderline >240 Undesirable Cholesterol in HDL [Mass/Vol] 19 mg/dL Low >40 [facility] Comment on above: HDL Guidelines: <40 Undesirable 40-59 Borderline >59 Desirable Cholesterol in LDL [Mass/Vol] 67 mg/dL 0 - 130 mg/dL [facility] Comment on above: LDL Guidelines: <100 Desirable 100-129 Near to/above Desirable 130-159 Borderline >159 Undesirable Direct (measured) LDL and calculated LDL are not interchangeable tests. Cholesterol in VLDL [Mass/Vol] NOT REPORTED 1 - 30 mg/dL [facility] Cholesterol.total/Shi sterol in HDL [Mass ratio] 5.7 {ratio} High <5 [facility] Interpretation and review of laboratory results Abnormal [facility] Triglyceride [Mass/Vol] 117 mg/dL <150 [facility] Comment on above: Triglyceride Guidelines: <150 Desirable 150-199 Borderline 200-499 High >499 Very high Based on AHA Guidelines for fasting triglyceride, February 2012. [facility] Troponinon 05-29-2021 Interpretation and review of laboratory results Abnormal [facility] Troponin Interp NOT REPORTED [facility] ealt Troponin T NOT REPORTED <0.03 ng/mL [facility] Troponin, High Sensitivity 58 ng/L Critically high 0 - 22 ng/L [facility] Comment on above: High Sensitivity Troponin values cannot be compared with other Troponin methodologies. Patients with high levels of Biotin oral intake (i.e >5mg/day) may have falsely decreased Troponin levels. Samples collected within 8 hours of biotin intake may require additional information for diagnosis. [facility] RENAL COMPLETEon 05-29-19 22 1. Bilateral uretera l jets are visualized. Urinary bladder grossly unremarkable. 2. Unremarkable renal ultrasound. No hydronephrosis. RECOMMENDATIONS: Unavailable [facility] CONSOLIDATED EXAMINATION: RETROPERITONEAL ULTRASOUND OF THE KIDNEYS AND URINARY BLADDER 05/29/2021 COMPARISON: None HISTORY: ORDERING SYSTEM PROVIDED HISTORY: CKD stage IIIa TECHNOLOGIST PROVIDED HISTORY: CKD stage IIIa 60-year-old male with chronic kidney disease, stage III A FINDINGS: Kidneys: Exam limited due to patient immobility. Right kidney measures 11.2 x 6.1 x 5.3 cm. Right renal cortical thickness measures 1.6 cm. Left kidney measures 11.3 x 6.4 x 6.3 cm. Left renal cortical thickness measures 1.7 cm. Gross preservation of the bilateral corticomedullary differentiation. Color flow projects over the bilateral renal parenchyma. No echogenic foci with posterior acoustic shadowing to suggest renal calculi. Bladder: Urinary bladder measures 14.8 x 8.2 by 10.9 cm for a bladder volume of 928 mL. Urinary bladder wall thickness measures 5 mm. Bilateral ureteral jets are visualized. Urinary bladder grossly unremarkable in appearance. Postvoid urinary bladder volume could not be obtained due to patient immobility. [facility] Ravinder Tinoco MD - 05/29/2021 EXAMINATION: RETROPERITONEAL ULTRASOUND OF THE KIDNEYS AND URINARY BLADDER 05/29/2021 COMPARISON: None HISTORY: ORDERING SYSTEM PROVIDED HISTORY: CKD stage IIIa TECHNOLOGIST PROVIDED HISTORY: CKD stage IIIa 60-year-old male with chronic kidney disease, stage III A FINDINGS: Kidneys: Exam limited due to patient immobility. Right kidney measures 11.2 x 6.1 x 5.3 cm. Right renal cortical thickness measures 1.6 cm. Left kidney measures 11.3 x 6.4 x 6.3 cm. Left renal cortical thickness measures 1.7 cm. Gross preservation of the bilateral corticomedullary differentiation. Color flow projects over the bilateral renal parenchyma. No echogenic foci with posterior acoustic shadowing to suggest renal calculi. Bladder: Urinary bladder measures 14.8 x 8.2 by 10.9 cm for a bladder volume of 928 mL. Urinary bladder wall thickness measures 5 mm. Bilateral ureteral jets are visualized. Urinary bladder grossly unremarkable in appearance. Postvoid urinary bladder volume could not be obtained due to patient immobility. IMPRESSION: 1. Bilateral ureteral jets are visualized. Urinary bladder grossly unremarkable. 2. Unremarkable renal ultrasound. No hydronephrosis. RECOMMENDATIONS: Unavailable [employer] Work Phone: Radiology Study observation (narrative) [employer] Work Phone: RENAL COMPLETEOrdered By: Ravinder Corona on 05-29-2021 [employer] Work Phone: Basic Metabolic Panelon Anion gap [Moles/Vol] 11 mmol/L 9 - 17 mmol/L [employer] Calcium [Mass/Vol] 10.7 mg/dL High 8.6 - 10. 4 mg/dL [employer] Chloride [Moles/Vol] 101 mmol/L 98 - 10 7 mmol/L [employer] CO2 [Moles/Vol] 25 mmol/L 20 - 31 mmol/L [facility] Creatinine [Mass/Vol] 1.4 mg/dL High 0.70 - 1.20 mg/dL [facility] GFR >60 >60 mL/min [facility] GFR Non- 52 mL/min Low >60 [facility] Glucose [Mass/Vol] 97 mg/dL 70 - 99 mg/dL [facility] Interpretation and review of laboratory results Abnormal [facility] Potassium [Moles/Vol] 3.6 mmol/L Low 3.7 - 5.3 mmol/L [facility] Sodium [Moles/Vol] 137 mmol/L 135 - 144 mmol/L [facility] Urea nitrogen (BldV) [Mass/Vol] 21 mg/dL 8 - 23 mg/dL [facility] Urea nitrogen/Creatinine (Bld) [Mass ratio] 15 [facility] CBCon 05-28-2021 Hematocrit (Bld) [Volume fraction] 38.7 % Low 40.7 - 50.3 % [facility] Hemoglobin.gastrointest inal spec 1 Ql (Stl) 13.2 g/dL 13.0 - 17.0 g/dL [facility] Interpretation and review of laboratory results Abnormal [facility] MCH (RBC) [Entitic mass] 30.2 pg 25.2 - 33.5 pg [facility] MCHC (RBC) [Mass/Vol] 34.1 g/dL 28.4 - 34.8 g/dL [facility] MCV (RBC) [Entitic vol] 88.6 fL 82.6 - 102.9 fL [facility] NRBC Automated 0.0 0.0 per 100 WBC [facility] Platelet distribution width (Bld) [Ratio] 11.8 % 11.8 - 14.4 % [facility] Platelet mean volume (Bld) [Entitic vol] 10.2 fL 8.1 - 13.5 fL [facility] Platelets (Bld) [#/Vol] 220 10*3/uL [facility] RBC (Bld) [#/Vol] 4.37 10*6/uL 4.21 - 5.7 7 m/uL [facility] WBC (Bld) [#/Vol] 3.8 10*3/uL [facility] EKG 12 leadon 05-28-2021 Atrial Rate 71 BPM [facility] [employer] Work Phone: P [place] 27 degrees [employer] Work Phone: P-R Interval 132 ms [employer] Work Phone: Q-T Interval 406 ms [employer] Work Phone: QRS Duration 96 ms [employer] Work Phone: QTc Calculation (Bazett) 441 ms [employer] Work Phone: R [place] -15 degrees [employer] Work Phone: T [place] -82 degrees [employer] Work Phone: Ventricular Rate 71 BPM [employer] Work Phone: Poor data quality, interpretation may be adversely affected Normal sinus rhythm Left ventricular hypertrophy with repolarization abnormality Abnormal ECG When compared with ECG of 20-MAY-2021 15:00, Minimal criteria for Septal infarct are no longer Present Confirmed by Alma Kan MD ([id number]) on 05/28/2021 10:34:44 AM [facility] RADIOLOG[facility] Alma Kan MD - 05/28/2021 Poor data quality, interpretation may be adversely affected Normal sinus rhythm Left ventricular hypertrophy with repolarization abnormality Abnormal ECG When compared with ECG of 20-MAY-2021 15:00, Minimal criteria for Septal infarct are no longer Present Confirmed by Alma Kan MD ([id number]) on 05/28/2021 10:34:44 AM [employer] Work Phone: [employer] Work Phone: EKG Rhythm Stripon [facility] LAB [facility] Routine [facility] Echocardiogram complete 2D w ith doppler with coloron 05-28-2021 [place] Transthoracic Echocardiography Report (TTE) Patient Name LAURA Date of Study 05/28/2021 PIOTR A Date of 1960 Gender Male Age 60 year(s) Race Room Number 0335 Height: 72 inch, 182.88 cm Corporate ID [id number] Weight: 231 pounds, 104.8 kg # Patient Acct [id number] BSA: 2.26 m^2 BMI: 31.33 # kg/m^2 MR # [id number] [employer] Hilda Arango Interpreting Physician Alma Kan Fellow Referring Nurse Cassie Morejon, COLOR TECHNICIAN Practitioner Interpreting Referring Physician Fellow Type of Study TTE procedure:2D Echocardiogram, M-Mode, Doppler, Color Doppler. Procedure Date Date: 05/28/2021 Start: 10:54 AM Study Location: [facility] Indications:Hypertens ion. History / Tech. Comments: Dx: Hypotension, Hypertension Hx: HTN, stent, DM, CVA Patient Status: Inpatient Height: 72 inches Weight: 231 pounds BSA: 2.26 m^2 BMI: 31.33 kg/m^2 BP: 129/62 mmHg CONCLUSIONS Summary Global left ventricular systolic function appears preserved with an estimated ejection fraction of 50-55%. Definity contrast was used for better visualization of the apex. The left ventricular cavity size is within normal limits and the left ventricular wall thickness is mildly increased. Mild thinning and hypokinesis of the apex noted. No evidence of apical thrombi. The left atrium is mildly dilated (29-33) with a left atrial volume index of 32 ml/m2. No significant valvular abnormalities. Evidence of mild (grade I) diastolic dysfunction is seen. No prior studies were available for comparison. Signature FINDINGS Left Atrium The left atrium is mildly dilated (29-33) with a left atrial volume index of 32 ml/m2. Left Ventricle Global left ventricular systolic function appears preserved with an estimated ejection fraction of 50-55%. Definity contrast was used for better visualization of the apex. The left ventricular cavity size is within normal limits and the left ventricular wall thickness is mildly increased. Mild thinning and hypokinesis of the apex noted. No evidence of apical thrombi. Right Atrium Right atrium is normal in size. Right Ventricle Normal right ventricular size and function. Mitral Valve Thickened mitral valve leaflets. Mitral annular calcification is seen. Aortic Valve Aortic valve sclerosis without stenosis. No aortic insufficiency. Tricuspid Valve Normal tricuspid valve structure and function. Pulmonic Valve The pulmonic valve is normal in structure. Pericardial Effusion No significant pericardial effusion is seen. Miscellaneous Evidence of mild (grade I) diastolic dysfunction is seen. M-mode / 2D Measurements & Calculations: LVIDd:5.01 cm(3.7 - 5.6 cm) Diastolic Volume:103.9875 ml LVIDs:3.64 cm(2.2 - 4.0 cm) Systolic Volume:48 ml IVSd:1.33 cm(0.6 - 1.1 cm) Aortic Root:3.42 cm(2.0 - 3.7 cm) LVPWd:1.35 cm(0.6 - 1.1 cm) LA Dimension: 4.91 cm(1.9 - 4.0 cm) Fractional Shortenin.35 % LA volume/Index: 72 ml /32m^2 Calculated LVEF (%): 53.84 % AV Cusp Separation: 2.08 cm LVOT:2.24 cm RVDd:4.09 cm Mitral: Aortic Valve Area (P1/2-Time): 3.1 cm^2 Peak Velocity: 1.43 m/s Peak E-Wave: 0.73 m/s Mean Velocity: 1.07 m/s Peak A-Wave: 0.90 m/s Peak Gradient: 8.23 mmHg E/A Ratio: 0.81 Mean Gradient: 4.93 mmHg Peak Gradient: 2.12 mmHg Acceleration Time: 66.3 msec P1/2t: 70.98 msec Area (continuity): 3.45 cm^2 AV VTI: 30.06 cm Lateral Wall E' velocity:0.08 m/s PN T [facility] Alma Kan MD - 05/28/2021 [facility] Transthoracic Echocardiography Report (TTE) Patient Name LAURA Date of Study 05/28/2021 PIOTR A Date of 1960 Gender Male Age 60 year(s) Race Room Number [id number] Height: 72 inch, 182.88 cm Corporate ID [id number] Weight: 231 pounds, 104.8 kg # Patient Acct [id number] BSA: 2.26 m^2 BMI: 31.33 # kg/m^2 MR # [id number] [employer] Hilda Arango Interpreting Physician Alma Kan Fellow Referring Nurse Cassie Morejon [facility] Practitioner Interpreting Referring Physician Fellow Type of Study TTE procedure:2D Echocardiogram, M-Mode, Doppler, Color Doppler. Procedure Date Date: 05/28/2021 Start: 10:54 AM Study Location: [facility] Indications:Hypertens ion. History / Tech. Comments: Dx: Hypotension, Hypertension Hx: HTN, stent, DM, CVA Patient Status: Inpatient Height: 72 inches Weight: 231 pounds BSA: 2.26 m^2 BMI: 31.33 kg/m^2 BP: 129/62 mmHg CONCLUSIONS Summary Global left ventricular systolic function appears preserved with an estimated ejection fraction of 50-55%. Definity contrast was used for better visualization of the apex. The left ventricular cavity size is within normal limits and the left ventricular wall thickness is mildly increased. Mild thinning and hypokinesis of the apex noted. No evidence of apical thrombi. The left atrium is mildly dilated (29-33) with a left atrial volume index of 32 ml/m2. No significant valvular abnormalities. Evidence of mild (grade I) diastolic dysfunction is seen. No prior studies were available for comparison. Signature - - - - FINDINGS Left Atrium The left atrium is mildly dilated (29-33) with a left atrial volume index of 32 ml/m2. Left Ventricle Global left ventricular systolic function appears preserved with an estimated ejection fraction of 50-55%. Definity contrast was used for better visualization of the apex. The left ventricular cavity size is within normal limits and the left ventricular wall thickness is mildly increased. Mild thinning and hypokinesis of the apex noted. No evidence of apical thrombi. Right Atrium Right atrium is normal in size. Right Ventricle Normal right ventricular size and function. Mitral Valve Thickened mitral valve leaflets. Mitral annular calcification is seen. Aortic Valve Aortic valve sclerosis without stenosis. No aortic insufficiency. Tricuspid Valve Normal tricuspid valve structure and function. Pulmonic Valve The pulmonic valve is normal in structure. Pericardial Effusion No significant pericardial effusion is seen. Miscellaneous Evidence of mild (grade I) diastolic dysfunction is seen. M-mode / 2D Measurements & Calculations: LVIDd:5.01 cm(3.7 - 5.6 cm) Diastolic Volume:103.9875 ml LVIDs:3.64 cm(2.2 - 4.0 cm) Systolic Volume:48 ml IVSd:1.33 cm(0.6 - 1.1 cm) Aortic Root:3.42 cm(2.0 - 3.7 cm) LVPWd:1.35 cm(0.6 - 1.1 cm) LA Dimension: 4.91 cm(1.9 - 4.0 cm) Fractional Shortenin.35 % LA volume/Index: 72 ml /32m^2 Calculated LVEF (%): 53.84 % AV Cusp Separation: 2.08 cm LVOT:2.24 cm RVDd:4.09 cm Mitral: Aortic Valve Area (P1/2-Time): 3.1 cm^2 Peak Velocity: 1.43 m/s Peak E-Wave: 0.73 m/s Mean Velocity: 1.07 m/s Peak A-Wave: 0.90 m/s Peak Gradient: 8.23 mmHg E/A Ratio: 0.81 Mean Gradient: 4.93 mmHg Peak Gradient: 2.12 mmHg Acceleration Time: 66.3 msec P1/2t: 70.98 msec Area (continuity): 3.45 cm^2 AV VTI: 30.06 cm Lateral Wall E' velocity:0.08 m/s [employer] Work Phone: [employer] Work Phone: Glucose, Whole Bloodon 05-28 Glucose [Mass/Vol] 147 mg/dL High 74 - 100 mg/dL [employer] Interpretation and review of laboratory results Abnormal [facility] Glucose [Mass/Vol] 76 mg/dL 74 - 100 mg/dL [facility] Glucose [Mass/Vol] 129 mg/dL High 74 - 100 mg/dL [facility] Interpretation and review of laboratory results Abnormal [facility] Glucose [Mass/Vol] 77 mg/dL 74 - 100 mg/dL [facility] Glucose [Mass/Vol] 75 mg/dL 74 - 100 mg/dL [facility] Hemoglobin A1con 05-28-2021 Glucose [Mass/Vol] 137 mg/dL [facility] Comment on above: The ADA and AACC rec ommend providing the estimated average glucose result to permit better patient understanding of their HBA1c result. HbA1c (Bld) [Mass fraction] 6.4 % High 4.0 - 6.0 % [facility] Interpretation and review of laboratory results Abnormal [facility] Laboratory - Chemistry and C hemistry - challengeon 05-28-2021 GFR/1.73 sq M.predicted MDRD (S/P/Bld) [Vol rate/Area] [facility] Comment on above: Average GFR for 60-6 9 years old: 85 mL/min/1.73sq m Chronic Kidney Disease: <60 mL/min/1.73sq m Kidney failure: <15 mL/min/1.73sq m eGFR calculated using average adult body mass. Additional eGFR calculator available at: http://www.Mempile/multiple_crcl_2012.htm Stage 1: Some kidney damage normal GFR Stage 2: Mild kidney damage GFR 60-89 Stage 3: Moderate kidney damage GFR 30-59 Stage 4: Severe kidney damage GFR 15-29 Stage 5: Severe kidney damage GFR <15 ESRD - chronic treatment by dialysis or transplant Troponinon 05-28-2021 Interpretation and review of laboratory results Abnormal [facility] Troponin Interp NOT REPORTED [facility] Troponin T NOT REPORTED <0.03 ng/mL [facility] Troponin, High Sensitivity 60 ng/L Critically high 0 - 22 ng/L [facility] Comment on above: High Sensitivity Troponin values cannot be compared with other Troponin methodologies. Patients with high levels of Biotin oral intake (i.e >5mg/day) may have falsely decreased Troponin levels. Samples collected within 8 hours of biotin intake may require additional information for diagnosis. [facility] Basic Metabolic Panel w/ Ref willam to MGon 05-27-2021 Anion gap [Moles/Vol] 10 mmol/L 9 - 17 mmol/L [facility] Calcium [Mass/Vol] 10.9 mg/dL High 8.6 - 10. 4 mg/dL [facility] Chloride [Moles/Vol] 101 mmol/L 98 - 10 7 mmol/L [facility] CO2 [Moles/Vol] 26 mmol/L 20 - 31 mmol/L [facility] Creatinine [Mass/Vol] 1.24 mg/dL High 0.70 - 1.20 mg/dL [facility] GFR >60 >60 mL/min [facility] GFR Non- 59 mL/min Low >60 [facility] Glucose [Mass/Vol] 133 mg/dL High 70 - 99 mg/dL [facility] Interpretation and review of laboratory results Abnormal [facility] Potassium [Moles/Vol] 3.7 mmol/L 3.7 - 5.3 mmol/L [facility] Sodium [Moles/Vol] 137 mmol/L 135 - 144 mmol/L [facility] Urea nitrogen (BldV) [Mass/Vol] 19 mg/dL 8 - 23 mg/dL [facility] Urea nitrogen/Creatinine (Bld) [Mass ratio] 15 [facility] CBC auto differentialon Absolute Eos # 0.03 [facility] th Absolute Immature Granulocyte <0.03 [facility] Absolute Lymph # 0.78 Low [facility] alth Absolute [place] # 0.87 [facility] lth Basophils (Bld) [#/Vol] 0.03 10*3/uL [facility] Basophils/100 WBC (Bld) 1 % 0 - 2 % [facility] Differential Type NOT REPORTED [facility] Eosinophils/100 WBC (Bld) 1 % 1 - 4 % [facility] Hematocrit (Bld) [Volume fraction] 37.5 % Low 40.7 - 50.3 % [facility] Hemoglobin.gastrointest inal spec 1 Ql (Stl) 12.6 g/dL Low 13.0 - 17.0 g/dL [facility] Immature granulocytes/100 WBC (Bld) 0 % 0 [facility] Interpretation and review of laboratory results Abnormal [facility] Lymphocytes/100 WBC (Bld) 15 % Low 24 - 43 % [facility] MCH (RBC) [Entitic mass] 30.1 pg 25.2 - 33.5 pg [facility] MCHC (RBC) [Mass/Vol] 33.6 g/dL 28.4 - 34.8 g/dL [facility] MCV (RBC) [Entitic vol] 89.5 fL 82.6 - 102.9 fL [facility] Monocytes/100 WBC (Bld) 17 % High 3 - 12 % [facility] NRBC Automated 0.0 0.0 per 100 WBC [facility] Platelet distribution width (Bld) [Ratio] 11.7 % Low 11.8 - 14.4 % [facility] Platelet Estimate NOT REPORTED [facility] Platelet mean volume (Bld) [Entitic vol] 10.2 fL 8.1 - 13.5 fL [facility] Platelets (Bld) [#/Vol] 238 10*3/uL [facility] RBC (Bld) [#/Vol] 4.19 10*6/uL Low 4.21 - 5.7 7 m/uL [facility] RBC (Bld) [#/Vol] NOT REPORTED [facility] Segmented neutrophils/100 WBC (Bld) 67 % High 36 - 65 % [facility] Segs [facility] W[facility] (Bld) [#/Vol] 5.2 10*3/uL [facility] WBC (Bld) [#/Vol] NOT REPORTED [facility] Glucose, Whole Bloodon 05-27 Glucose [Mass/Vol] 146 mg/dL High 74 - 100 mg/dL [facility] Interpretation and review of laboratory results Abnormal [facility] Laboratory - Chemistry and C hemistry - challengeon 05-27-2021 GFR/1.73 sq M.predicted MDRD (S/P/Bld) [Vol rate/Area] [facility] Comment on above: Average GFR for 60-6 9 years old: 85 mL/min/1.73sq m Chronic Kidney Disease: <60 mL/min/1.73sq m Kidney failure: <15 mL/min/1.73sq m eGFR calculated using average adult body mass. Additional eGFR calculator available at: [email or web address] Stage 1: Some kidney damage normal GFR Stage 2: Mild kidney damage GFR 60-89 Stage 3: Moderate kidney damage GFR 30-59 Stage 4: Severe kidney damage GFR 15-29 Stage 5: Severe kidney damage GFR <15 ESRD - chronic treatment by dialysis or transplant Troponinon 05-27-2021 Interpretation and review of laboratory results Abnormal [employer] Troponin Interp NOT REPORTED [facility] ealt Troponin T NOT REPORTED <0.03 ng/mL [facility] Troponin, High Sensitivity 45 ng/L High 0 - 22 ng/L [facility] Comment on above: High Sensitivity Troponin values cannot be compared with other Troponin methodologies. Patients with high levels of Biotin oral intake (i.e >5mg/day) may have falsely decreased Troponin levels. Samples collected within 8 hours of biotin intake may require additional information for diagnosis. [employer] XR CHEST (2 VW)on 05-27-2021 No acute cardiopulmonary process [facility] RIS CONSOLIDATED EXAMINATION: TWO XRAY VIEWS OF THE CHEST 05/27/2021 4:53 pm COMPARISON: 05/20/2021 HISTORY: ORDERING SYSTEM PROVIDED HISTORY: htn TECHNOLOGIST PROVIDED HISTORY: htn FINDINGS: The cardiomediastinal silhouette is normal in size and contour. The lungs are clear. No pleural effusion or pneumothorax is present. [facility] RIS CONSOLIDATED Vicente Saul MD - 05/27/2021 EXAMINATION: TWO XRAY VIEWS OF THE CHEST 05/27/2021 4:53 pm COMPARISON: 05/20/2021 HISTORY: ORDERING SYSTEM PROVIDED HISTORY: htn TECHNOLOGIST PROVIDED HISTORY: htn FINDINGS: The cardiomediastinal silhouette is normal in size and contour. The lungs are clear. No pleural effusion or pneumothorax is present. IMPRESSION: No acute cardiopulmonary process [employer] Work Phone: Radiology Study observation (narrative) [employer] [facility] Work Phone: XR CHEST (2 VW)Ordered By: Jn Saul on 05-27-2021 [employer] Work Phone: Coding Summary.on 08-30-2020 Coding Summary. CODING DATE: 08/30/2020 [facility] STATUS: Home (Routine DC) PAYOR: Medical [place] APC DESCRIPTION 5524 Level 4 Imaging without Contrast ADMIT DX: REASON FOR VISIT DX: I25.10 Atherosclerotic heart disease of [place] coronary artery without angina pectoris FINAL DX: PRINCIPAL: I25.10 Atherosclerotic heart disease of [place] coronary artery without angina pectoris SECONDARY: PYMT PROC APC STAT DESCRIPTION DOCTOR NAME DATE NOTE: The code number assigned matches the documented diagnosis and / or procedure in the patient's chart. However, the narrative phrase printed from the coding software may appear abbreviated, or result in slightly different terminology. Coded By: Libra De La O CphT Date Saved: 08/30/2020 10:57 am Normal [facility] Consent for Treatmenton Consent for Treatment [id number] .00CD:127 Normal [facility] Echo Transthoracic Completeo n 08-28-2020 Echo Transthoracic Complete Echocardiology Procedure Exam Date/Time Accession # Ordering Echo Transthoracic 08/28/2020 11:32 EDT [id number] Helder GREENBERG, Antonio Lehman Complete CPT code [id number] Reason for Exam (Echo Transthoracic Complete) CAD;CAD Coronary artery disease Report Patient Height: 72 Patient Weight: 242# Blood Pressure: 131/69 1. LVIDd m(3.8-5.8cm)w(3.8-5.2 cm) 4.99 cm 2. LVIDs m(2.1-3.9cm)w(2.2-3.5 cm) 3.74 cm 3. IVSd m(0.6-1.0cm) 1.55 cm 4. LVPWd (0.6-1.0cm) 1.30 cm 5. LAs (2.7-4.0cm) 4.9 cm 6. LA Vol. Index (16-34 mL/m2) 26 mL/m2 7. AOd Root (3.0-3.4cm) 3.4 cm 8. AO Annulus (2.3-2.6cm) _ cm 9. AO Sinus of Valsalva (3.0-3.4cm) _ cm 10. AO Sinotubular Junction (2.6-2.9cm) _ cm 11. Ascending Aorta (2.7-3.0cm) 3.7 cm 12. RVIDd (2.0-3.0cm) 3.4 cm 13. AoV Peak Gradient _ mmHg 14. AoV Mean Gradient _ mmHg 15. LVOT Diam _ cm INDICATIONS : Coronary disease. PROCEDURE : Two-dimensional echocardiogram with Doppler. M-MODE/2D/DOPPLER REPORT : 1. The patient appears to have mild concentric left ventricular function with an EF approximately 60%. The patient has stage 1 diastolic dysfunction. 2 . The right ventricle is normal in size and function. 3. Left atrium is normal. 4. Right atrium is normal. 5. The aortic valve is trileaflet and opens normally. No evidence of aortic stenosis. 6. The mitral valve shows mild mitral regurgitation. 7. Pulmonary valve shows trivial pulmonary insufficiency. Echocardiology Report 8. Tricuspid valve shows trivial tricuspid regurgitation with an RVSP of 32 mmHg. 9. Pericardium is normal. 10. Interatrial septum is intact. 11. The aorta is normal. SUMMARY/CONCLUSION : 1. Mild concentric left ventricular hypertrophy with normal left ventricular size and function with an ejection fraction of 60%. 2. Trivial tricuspid regurgitation with a right ventricular systolic pressure of 32 mmHg. 3. No old echocardiograms for comparison. FINAL REPORT Signed (Electronic Signature): 08/28/2020 5:12 pm Signed by: Adrian Villalta MD Transcribed by: viji Technologist: CARI Tan [facility] Otheron 07-25-2020 Casts UA NOT REPORTED /LPF [employer] Work Phone: Urinalysis with Microscopico n 07-25-2020 Amorphous, UA NOT REPORTED None [facility] Work Phone: Bacteria, UA TRACE Abnormal None [employer] Work Phone: Bilirubin Urine Negative NEGATIVE [facility] Work Phone: Color, UA YELLOW YELLOW [employer] Work Phone: Crystals, UA NOT REPORTED None /HPF [employer] [facility] Work Phone: Epithelial Cells UA 0 TO 2 [employer] Work Phone: Glucose, Ur Negative NEGATIVE [employer] Work Phone: Interpretation and review of laboratory results Abnormal [facility] Work Phone: Ketones Ql (U) Negative NEGATIVE [facility] Work Phone: Leukocyte esterase Test strip Ql (U) Negative NEGATIVE [facility] [employer] Work Phone: Mucus, UA TRACE Abnormal None [facility] [employer] Work Phone: Nitrite, Urine Negative NEGATIVE [facility] Work Phone: Other Observations UA NOT REPORTED NOT REQ. M [facility] Work Phone: pH, UA 5.5 [facility] [employer] Work Phone: Protein (U) [Mass/Vol] 1+ Abnormal NEGATIVE [facility] [employer] Work Phone: RBC (U) [#/Vol] None [facility] Work Phone: Renal Epithelial, UA NOT REPORTED 0 /HPF [facility] [employer] Work Phone: Specific [place], UA 1.025 High [facility] [employer] Work Phone: Trichomonas, UA NOT REPORTED None [facility] Work Phone: Turbidity UA CLEAR CLEAR [facility] [employer] Work Phone: Urinalysis Comments NOT REPORTED [facility] Work Phone: Urine Hgb Negative NEGATIVE [facility] [employer] Work Phone: Urobilinogen, Urine Normal Normal [facility] [employer] Work Phone: WBC, UA 0 TO 2 [facility] Work Phone: Yeast, UA NOT REPORTED None [facility] [employer] Work Phone: - [facility] Work Phone: Coding Summary.on 06-01-2020 Coding Summary. 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 However, the narrative phrase printed from the coding software may appear abbreviated, or result in slightly different terminology. Coded By: Libra De La O CphT Date Saved: 06/01/2020 08:35 pm Normal [facility] Consent for Treatmenton Consent for Treatment [id number] .00CD:127 Normal [facility] Heart and Vascular Office/Cl inic Noteon 04-26-2020 Heart and Vascular Office/Clinic Note Chief Complaint HTN HPI Staff PCP Pia Zhang History of Present Illness NEW PT Hx HTN Hx CAD s/p PCI SYLVIA x 2 LAD and om 2014 taking DAPT. No hx AMI. No statin No records. Stented in [facility]. NO chest discomfort now or then Did have some lethargy then EKG today, NSR LVH, repol abn Hx stroke 2019 hx DM BP is high lately. taking norvasc 2.5mg, lisinopril 10, toprol 50mg. Stroke afftected lle and LUE. 06/2019. Was see in [place]. No records. Thinks non-hemorrhagic BS was >600 and had severe HTN. 200/100. Visiting with neurology soon. Was on statin but had some low back pain on 2 statins. Tried lipitor. crestor. Back pain stopped when stopped meds. No transaminitis. No recent echo or ST since before stenting MEtoprolol recently decreased. due to dizzness and confusion Physical Exam Vitals & Measurements HR: 72(Peripheral) RR: 18 BP: 168/79 SpO2: 100% HT: 182 cm HT: 182.0 cm WT: 110 kg WT: 110.0 kg BMI: 33.21 General: alert, no acute distress ENMT: TM's clear, oral mucosa moist, no pharyngeal erythema or exudate Cardiovascular: regular rate and rhythm, normal peripheral perfusion Respiratory: Lungs CTA, respirations non labored Extremities:no edema, no deformity, no trauma Neurological: oriented x 4, LOC appropriate for age, CN II-XII intact, motor strength equal & normal bilaterally, sensation equal & normal bilaterally, speech normal Assessment/Plan CAD: stable. asymtpomatic. cont GDMT. Try Pravachol 10mg as trial of therapy. Will check echo. LAst stenting was 5 yrs ago. Will DC plavix and cont ASA. HTN: BP quite elevated here and at home. REcently decreased BB. Will increase norvasc to 5mg. XOL: Add pravachol. f/u 3-4 months with echo. Ordered: ECG 12 Lead Adult Follow-up No qualifying data available Problem List/Past Medical History Ongoing CVA (cerebral vascular accident) DM (diabetes mellitus) HLD (hyperlipidemia) HTN (hypertension) Historical No qualifying data Procedure/Surgical History PCI - Percutaneous coronary intervention (01/02/2015). Medications amLODIPine 2.5 mg Tab, 2.5 mg= 1 tab(s), Oral, Daily aspirin 81 mg Oral EC Tab Lantus Solostar Pen lisinopril 10 mg Tab, 10 mg= 1 tab(s), Oral, Daily metformin 1000 mg Tab, 1000 mg= 1 tab(s), Oral, Daily metoprolol 50 mg ER Tab, 50 mg= 1 tab(s), Oral, Daily Plavix 75 mg Tab, 75 mg= 1 tab(s), Oral, Daily Allergies No Known Medication Allergies Social History Alcohol - Denies Alcohol Use, 04/26/2020 Tobacco Never (less than 100 in lifetime) Tobacco Use:., 04/26/2020 Family History Acute myocardial infarction: Father. Normal [facility] Comment on above: Result Comment: Elec tronically Signed By: Helder GREENBERG, Antonio Robbins\Date and Time Signed: 04/26/20 14:57 EST Vital Signs Date Time Vital Sign Value Performing Clinician Facility 12-27-2024 10:44-0400 Body temperature 98.01 [degF] Quincy Penn DPM Work Phone: [facility] 12-27-2024 10:44-0400 Diastolic blood pressure 59 mm[Hg] Quincy Penn DPM Work Phone: [facility] 12-27-2024 10:44-0400 Heart rate 64 /min Quincy Penn DPM Work Phone: [facility] 12-27-2024 10:44-0400 Respiratory rate 20 /min Quincy Penn DPM Work Phone: [facility] 12-27-2024 10:44-0400 Systolic blood pressure 132 mm[Hg] Quincy Penn DPM Work Phone: [facility] 12-23-2024 13:29-0400 Body height 182.88 cm Jorge Ball DO Work Phone: [facility] 12-23-2024 13:29-0400 Body mass index (BMI) [Ratio] 34.9 kg/m2 Jorge Ball DO Work Phone: [facility] 12-23-2024 13:29-0400 Body weight 117.02 kg Jorge Ball DO Work Phone: [facility] 12-23-2024 13:29-0400 Diastolic blood pressure 71 mm[Hg] Jorge Ball DO Work Phone: [facility] 12-23-2024 13:29-0400 Heart rate 71 /min Jorge Ball DO Work Phone: [facility] 12-23-2024 13:29-0400 Respiratory rate 14 /min Jorge Ball DO Work Phone: [facility] 12-23-2024 13:29-0400 SaO2% (BldA) [Mass fraction] 97 % Jorge Ball DO Work Phone: [facility] 12-23-2024 13:29-0400 Systolic blood pressure 114 mm[Hg] Jorge Pritchett DO Work Phone: [facility] 12-06-2024 12:05-0400 Respiratory rate 20 /min Quincy Penn DPM Work Phone: [facility] [employer] 11-22-2024 11:01-0400 Body temperature 97.81 [degF] Quincy Penn DPM Work Phone: [facility] [employer] 11-22-2024 11:01-0400 Diastolic blood pressure 60 mm[Hg] Quincy Penn DPM Work Phone: [facility] [employer] 11-22-2024 11:01-0400 Heart rate 67 /min Quincy Penn DPM Work Phone: [facility] [employer] 11-22-2024 11:01-0400 Respiratory rate 20 /min Quincy Penn DPM Work Phone: [facility] [employer] 11-22-2024 11:01-0400 Systolic blood pressure 145 mm[Hg] Quincy Penn DPM Work Phone: [facility] [employer] 11-15-2024 08:54-0400 Body temperature 98.49 [degF] Quincy Penn DPM Work Phone: [facility] [employer] 11-15-2024 08:54-0400 Diastolic blood pressure 61 mm[Hg] Quincy Penn DPM Work Phone: [facility] [employer] 11-15-2024 08:54-0400 Heart rate 61 /min Quincy Penn DPM Work Phone: [facility] [employer] 11-15-2024 08:54-0400 Respiratory rate 18 /min Quincy Penn DPM Work Phone: [facility] [employer] 11-15-2024 08:54-0400 Systolic blood pressure 133 mm[Hg] Quincy Penn DPM Work Phone: [facility] [employer] 11-11-2024 09:30-0400 Diastolic blood pressure 58 mm[Hg] Quincy Penn DPM Work Phone: [facility] [employer] 11-11-2024 09:30-0400 Heart rate 64 /min Quincy Penn DPM Work Phone: [facility] [employer] 11-11-2024 09:30-0400 Respiratory rate 16 /min Quincy Penn DPM Work Phone: [facility] [employer] 11-11-2024 09:30-0400 SaO2% (BldA) [Mass fraction] 96 % Quincy Penn DPM Work Phone: [facility] [employer] 11-11-2024 09:30-0400 Systolic blood pressure 164 mm[Hg] Quincy Penn DPM Work Phone: [facility] [employer] 11-11-2024 08:51-0400 Body temperature 97.7 [degF] Quincy Zelayacaitlintiffany DPM Work Phone: [facility] 11-11-2024 06:30-0400 Body height 182.9 cm Quincy Richardstiffany DPM Work Phone: [facility] [employer] 11-11-2024 06:30-0400 Body mass index (BMI) [Ratio] 35.53 kg/m2 Quincy Davonte DPM Work Phone: [facility] 11-11-2024 06:30-0400 Body weight 118.84 kg Quincy Davonte DPM Work Phone: [facility] 11-09-2024 13:45-0400 Body height 182.9 cm Alice Cochran DPM Work Phone: [facility] 11-09-2024 13:45-0400 Body mass index (BMI) [Ratio] 35.26 kg/m2 Alice Cochran DPM Work Phone: [facility] 11-09-2024 13:45-0400 Body temperature 98.01 [degF] Alice Cochran DPM Work Phone: [facility] 11-09-2024 13:45-0400 Body weight 117.94 kg Alice Cochran DPM Work Phone: [facility] 11-01-2024 11:32-0400 Body temperature 98.1 [degF] Quincy Penn DPM Work Phone: [facility] 11-01-2024 11:32-0400 Diastolic blood pressure 74 mm[Hg] Quincy Penn DPM Work Phone: [facility] 11-01-2024 11:32-0400 Heart rate 69 /min Quincy Penn DPM Work Phone: [facility] 11-01-2024 11:32-0400 Respiratory rate 20 /min Quincy Penn DPM Work Phone: [facility] 11-01-2024 11:32-0400 Systolic blood pressure 153 mm[Hg] Quincy Penn DPM Work Phone: [facility] 10-04-2024 11:14-0400 Body mass index (BMI) [Ratio] 34.75 kg/m2 Quincy Penn DPM Work Phone: [facility] 10-04-2024 11:14-0400 Body temperature 97.59 [degF] Quincy Penn DPM Work Phone: [facility] 10-04-2024 11:14-0400 Body weight 116.21 kg Quincy Penn DPM Work Phone: [facility] 10-04-2024 11:14-0400 Diastolic blood pressure 68 mm[Hg] Quincy Penn DPM Work Phone: [facility] 10-04-2024 11:14-0400 Heart rate 68 /min Quincy Penn DPM Work Phone: [facility] [employer] 10-04-2024 11:14-0400 Respiratory rate 20 /min Quincy Penn DPM Work Phone: [facility] 10-04-2024 11:14-0400 Systolic blood pressure 130 mm[Hg] Quincy Penn DPM Work Phone: [facility] 09-21-2024 14:30-0400 Body height 182.88 cm [facility] 09-21-2024 14:30-0400 Body mass index (BMI) [Ratio] 34.7 kg/m2 [facility] 09-21-2024 14:30-0400 Body weight 116.23 kg [facility] 09-21-2024 14:30-0400 Diastolic blood pressure 56 mm[Hg] [facility] 09-21-2024 14:30-0400 Heart rate 72 /min [facility] 09-21-2024 14:30-0400 Respiratory rate 12 /min [facility] 09-21-2024 14:30-0400 SaO2% (BldA) [Mass fraction] 99 % [facility] 09-21-2024 14:30-0400 Systolic blood pressure 105 mm[Hg] [facility] 09-06-2024 11:34-0400 Body temperature 97.39 [degF] Quincy Penn DPM Work Phone: [facility] 09-06-2024 11:34-0400 Diastolic blood pressure 55 mm[Hg] Quincy Penn DPM Work Phone: [facility] 09-06-2024 11:34-0400 Heart rate 69 /min Quincy Penn DPM Work Phone: [facility] 09-06-2024 11:34-0400 Respiratory rate 16 /min Quincy Penn DPM Work Phone: [facility] 09-06-2024 11:34-0400 Systolic blood pressure 109 mm[Hg] Quincy Penn DPM Work Phone: [facility] 08-16-2024 11:42-0400 Body height 182.9 cm Quincy PECKM Work Phone: [employer] 08-16-2024 11:42-0400 Body mass index (BMI) [Ratio] 36.48 kg/m2 Quincy Penn DPM Work Phone: [facility] [employer] 08-16-2024 11:42-0400 Body weight 122 kg Quincy Penn DPM Work Phone: [employer] [facility] [facility] Comment on above: as of 07/2308-16-2024 11:42-0400 Heart rate 86 /min Quincy Penn DPM Work Phone: [facility] [employer] 08-16-2024 11:34-0400 Body temperature 98.2 [degF] Quincy Penn DPM Work Phone: [facility] [employer] 08-16-2024 11:34-0400 Diastolic blood pressure 54 mm[Hg] Quincy Penn DPM Work Phone: [facility] [employer] 08-16-2024 11:34-0400 Respiratory rate 16 /min Quincy Penn DPM Work Phone: [facility] [employer] 08-16-2024 11:34-0400 Systolic blood pressure 142 mm[Hg] Quincy Penn DPM Work Phone: [facility] [employer] [facility] 08-05-2024 13:27-0400 Body height 182.88 cm [facility] 08-05-2024 13:27-0400 Body mass index (BMI) [Ratio] 34.9 kg/m2 [facility] 08-05-2024 13:27-0400 Body weight 116.68 kg [facility] 08-05-2024 13:27-0400 Diastolic blood pressure 84 mm[Hg] [facility] 08-05-2024 13:27-0400 Heart rate 76 /min [facility] 08-05-2024 13:27-0400 SaO2% (BldA) [Mass fraction] 98 % [facility] 08-05-2024 13:27-0400 Systolic blood pressure 146 mm[Hg] [facility] 07-23-2024 08:30-0500 Diastolic blood pressure 52 mm[Hg] Maribel Llanos DO Work Phone: [facility] [employer] 07-23-2024 08:30-0500 Heart rate 83 /min Maribel Mejiasbal DO Work Phone: [facility] 07-23-2024 08:30-0500 Respiratory rate 12 /min Maribel Llanos DO Work Phone[facility] 07-23-2024 08:30-0500 SaO2% (BldA) [Mass fraction] 99 % Maribel Llanos DO Work Phone[facility] 07-23-2024 08:30-0500 Systolic blood pressure 129 mm[Hg] Maribel Llanos DO Work Phone[facility] 07-23-2024 05:29-0500 Body mass index (BMI) [Ratio] 36.48 kg/m2 Maribel Llanos DO Work Phone[facility] 07-23-2024 05:29-0500 Body weight 122 kg Maribel Llanos DO Work Phone[facility] 07-22-2024 23:51-0500 Body temperature 97.81 [degF] Maribel Llanos DO Work Phone: [facility] [employer] [facility] 07-12-2024 14:58-0500 Body height 182.88 cm [facility] 07-12-2024 14:58-0500 Body mass index (BMI) [Ratio] 36.2 kg/m2 [facility] 07-12-2024 14:58-0500 Body weight 121.27 kg [facility] 07-12-2024 14:58-0500 Diastolic blood pressure 89 mm[Hg] [facility] 07-12-2024 14:58-0500 Heart rate 61 /min [facility] 07-12-2024 14:58-0500 SaO2% (BldA) [Mass fraction] 96 % [facility] 07-12-2024 14:58-0500 Systolic blood pressure 139 mm[Hg] [facility] 07-12-2024 10:49-0500 Diastolic blood pressure 61 mm[Hg] Quincy Penn DPM Work Phone: [facility] 07-12-2024 10:49-0500 Heart rate 59 /min Quincy Penn DPM Work Phone: [facility] 07-12-2024 10:49-0500 Systolic blood pressure 136 mm[Hg] Quincy Penn DPM Work Phone: [facility] 07-12-2024 10:34-0500 Body temperature 97.5 [degF] Quincy Penn DPM Work Phone: [facility] 07-12-2024 10:34-0500 Respiratory rate 22 /min Quincy Penn DPM Work Phone: [facility] 05-26-2024 15:18-0500 Body height 182.9 cm Alice Cochran DPM Work Phone: [facility] 05-26-2024 15:18-0500 Body mass index (BMI) [Ratio] 36.08 kg/m2 Alice Cochran DPM Work Phone: [facility] 05-26-2024 15:18-0500 Body weight 120.66 kg Alice Cochran DPM Work Phone: [facility] 05-12-2024 11:55-0500 Body height 182.88 cm [facility] 05-12-2024 11:55-0500 Body mass index (BMI) [Ratio] 35.9 kg/m2 [facility] 05-12-2024 11:55-0500 Body weight 119.97 kg [facility] 05-12-2024 11:55-0500 Diastolic blood pressure 74 mm[Hg] [facility] 05-12-2024 11:55-0500 Heart rate 59 /min [facility] 05-12-2024 11:55-0500 Respiratory rate 12 /min [facility] 05-12-2024 11:55-0500 Systolic blood pressure 176 mm[Hg] [facility] 03-23-2024 13:47-0400 Body height 182.9 cm Alice Cochran DPM Work Phone: [facility] 03-23-2024 13:47-0400 Body mass index (BMI) [Ratio] 36.08 kg/m2 Alice Cochran DPM Work Phone: [facility] 03-23-2024 13:47-0400 Body weight 120.66 kg Alice Mary DPM Work Phone: [facility] 02-28-2024 08:15-0400 Diastolic blood pressure 65 mm[Hg] Gabby Orlando MD Work Phone: [facility] 02-28-2024 08:15-0400 Systolic blood pressure 122 mm[Hg] Gabby Orlando MD Work Phone: [facility] 02-28-2024 07:43-0400 SaO2% (BldA) [Mass fraction] 90 % Gabby Orlando MD [facility] Phone: [facility] 02-28-2024 05:50-0400 Body temperature 98.6 [degF] Gabby Orlando MD Work Phone[facility] [place] [facility] [employer] 02-28-2024 05:50-0400 Heart rate 61 /min Gabby Orlando MD [facility] Phone: [facility] 02-28-2024 05:50-0400 Respiratory rate 20 /min Gabby Orlando MD Work Phone: [facility] [employer] 02-27-2024 08:02-0400 Body temperature 97.9 [degF] Fred Villegas MD Work Phone: [facility] [employer] 02-27-2024 08:02-0400 Diastolic blood pressure 68 mm[Hg] Fred Villegas MD Work Phone: [facility] [employer] 02-27-2024 08:02-0400 Heart rate 64 /min Fred Villegas MD Work Phone: [facility] 02-27-2024 08:02-0400 Respiratory rate 22 /min Fred Villegas MD Work Phone: [facility] [employer] 02-27-2024 08:02-0400 SaO2% (BldA) [Mass fraction] 96 % Fred Villegas MD Work Phone: [facility] [employer] 02-27-2024 08:02-0400 Systolic blood pressure 153 mm[Hg] Fred Villegas MD Work Phone: [facility] 02-27-2024 05:30-0400 Body mass index (BMI) [Ratio] 36.89 kg/m2 Fred Villegas MD Work Phone: [facility] 02-27-2024 05:30-0400 Body weight 123.38 kg Fred Villegas MD Work Phone: [facility] [employer] 02-25-2024 08:37-0400 Body height 182.9 cm Fred Villegas MD Work Phone: [facility] 02-17-2024 09:55-0400 Body height 182.9 cm Alice Cochran DPM Work Phone: [facility] 02-17-2024 09:55-0400 Body mass index (BMI) [Ratio] 36.08 kg/m2 Alice Cochran DPM Work Phone: [facility] 02-17-2024 09:55-0400 Body temperature 98.01 [degF] Alice Cochran DPM Work Phone: [facility] 02-17-2024 09:55-0400 Body weight 120.66 kg Alice Cochran DPM Work Phone: [facility] 02-05-2024 10:04-0400 Body height 182.9 cm Alice Cochran DPM Work Phone: [facility] 02-05-2024 10:04-0400 Body mass index (BMI) [Ratio] 36.08 kg/m2 Alice Cochran DPM Work Phone: [facility] 02-05-2024 10:04-0400 Body weight 120.66 kg Alice Cochran DPM Work Phone: [facility] 02-03-2024 11:11-0400 Body height 182.88 cm [facility] 02-03-2024 11:11-0400 Body mass index (BMI) [Ratio] 37.4 kg/m2 [facility] 02-03-2024 11:11-0400 Body weight 125.19 kg [facility] 02-03-2024 11:11-0400 Diastolic blood pressure 82 mm[Hg] [facility] 02-03-2024 11:11-0400 Heart rate 70 /min [facility] 02-03-2024 11:11-0400 Respiratory rate 24 /min [facility] 02-03-2024 11:11-0400 Systolic blood pressure 151 mm[Hg] [facility] 12-21-2023 15:30-0400 Diastolic blood pressure 65 mm[Hg] Tigist Correa MD Work Phone: [facility] 12-21-2023 15:30-0400 Heart rate 67 /min Tigist Correa MD Work Phone: [facility] 12-21-2023 15:30-0400 Respiratory rate 12 /min Tigist Correa MD Work Phone: [facility] 12-21-2023 15:30-0400 SaO2% (BldA) [Mass fraction] 98 % Tigist Correa MD Work Phone: [facility] [employer] [facility] 12-21-2023 15:30-0400 Systolic blood pressure 146 mm[Hg] Tigist Correa MD Work Phone: [facility] [employer] 12-21-2023 12:50-0400 Body temperature 97.3 [degF] Tigist Correa MD Work Phone: [facility] [employer] 12-21-2023 08:11-0400 Body height 182.9 cm Tigist Correa MD Work Phone: [facility] [employer] 12-21-2023 08:11-0400 Body mass index (BMI) [Ratio] 36.77 kg/m2 Tigist Correa MD Work Phone: [facility] 12-21-2023 08:11-0400 Body weight 123 kg Tigist Correa MD Work Phone: [facility] 11-10-2023 11:48-0400 Body height 182.88 cm [facility] 11-10-2023 11:48-0400 Body mass index (BMI) [Ratio] 36.6 kg/m2 [facility] 11-10-2023 11:48-0400 Body weight 122.52 kg [facility] 11-10-2023 11:48-0400 Diastolic blood pressure 83 mm[Hg] [facility] 11-10-2023 11:48-0400 Heart rate 74 /min [facility] 11-10-2023 11:48-0400 Respiratory rate 20 /min [facility] 11-10-2023 11:48-0400 Systolic blood pressure 130 mm[Hg] [facility] 11-03-2023 09:05-0400 Diastolic blood pressure 66 mm[Hg] Akira Ferrer MD Work Phone: [facility] 11-03-2023 09:05-0400 SaO2% (BldA) [Mass fraction] 95 % Akira Ferrer MD Work Phone: [facility] [employer] 11-03-2023 09:05-0400 Systolic blood pressure 210 mm[Hg] Akira Ferrer MD Work Phone: [facility] [employer] 11-03-2023 09:00-0400 Heart rate 65 /min Akira eFrrer MD Work Phone: [facility] [employer] 11-03-2023 09:00-0400 Respiratory rate 20 /min Akira Ferrer MD Work Phone: [facility] [employer] 11-03-2023 07:26-0400 Body height 182.9 cm Akira Ferrer MD Work Phone: [facility] 11-03-2023 07:26-0400 Body mass index (BMI) [Ratio] 37.3 kg/m2 Akira Ferrer MD Work Phone: [facility] 11-03-2023 07:26-0400 Body temperature 97.39 [degF] Akira Ferrer MD Work Phone: [facility] 11-03-2023 07:26-0400 Body weight 124.74 kg Akira Ferrer MD Work Phone: [facility] 08-12-2023 11:49-0400 Body height 182.88 cm [facility] 08-12-2023 11:49-0400 Body mass index (BMI) [Ratio] 39.4 kg/m2 [facility] 08-12-2023 11:49-0400 Body weight 131.71 kg [facility] 08-12-2023 11:49-0400 Diastolic blood pressure 80 mm[Hg] [facility] 08-12-2023 11:49-0400 Heart rate 96 /min [facility] 08-12-2023 11:49-0400 Respiratory rate 20 /min [facility] 08-12-2023 11:49-0400 Systolic blood pressure 130 mm[Hg] [facility] 05-13-2023 11:30-0500 Body height 182.88 cm Jorge Yarely Other [employer] Other 05-13-2023 11:30-0500 Body mass index (BMI) [Ratio] 36.37 kg/m2 Jorge Ball Other [employer] Other 05-13-2023 11:30-0500 Body weight 121.66 kg Jorge Ball Other [employer] Other 05-13-2023 11:30-0500 Diastolic blood pressure 75 mm[Hg] Jorge Ball Other [employer] Other 05-13-2023 11:30-0500 Respiratory rate 20 /min Jorge Ball Other [employer] Other 05-13-2023 11:30-0500 SaO2% (BldA) [Mass fraction] 99 % Jorge Ball Other [employer] Other 05-13-2023 11:30-0500 Systolic blood pressure 189 mm[Hg] Jorge Ball Other [employer] Other 02-11-2023 11:30-0400 Body height 182.88 cm Jorge Ball Other [employer] Other 02-11-2023 11:30-0400 Body mass index (BMI) [Ratio] 33.63 kg/m2 Jorge Ball Other [employer] Other 02-11-2023 11:30-0400 Body weight 112.49 kg Jorge Ball Other [employer] Other 02-11-2023 11:30-0400 Diastolic blood pressure 94 mm[Hg] Jorge Ball Other [employer] Other 02-11-2023 11:30-0400 Respiratory rate 20 /min Jorge Ball Other [employer] Other 02-11-2023 11:30-0400 SaO2% (BldA) [Mass fraction] 98 % Jorge Ball Other [employer] Other 02-11-2023 11:30-0400 Systolic blood pressure 195 mm[Hg] Jorge Ball Other [employer] Other 11-11-2022 11:30-0400 Body height 182.88 cm Jorge Ball Other [employer] Other 11-11-2022 11:30-0400 Body mass index (BMI) [Ratio] 34.09 kg/m2 Jorge Ball Other [employer] Other 11-11-2022 11:30-0400 Body weight 114.04 kg Jorge Ball Other [employer] Other 11-11-2022 11:30-0400 Diastolic blood pressure 77 mm[Hg] Jorge Ball Other [employer] Other 11-11-2022 11:30-0400 Respiratory rate 20 /min Jorge Ball Other [employer] Other 11-11-2022 11:30-0400 SaO2% (BldA) [Mass fraction] 98 % Jorge Ball Other [employer] Other 11-11-2022 11:30-0400 Systolic blood pressure 164 mm[Hg] Jorge Ball Other [employer] Other 08-11-2022 12:00-0400 Body height 182.88 cm Jorge Ball Other [employer] Other 08-11-2022 12:00-0400 Body mass index (BMI) [Ratio] 33.39 kg/m2 Jorge Ball Other [employer] Other 08-11-2022 12:00-0400 Body weight 111.68 kg Jorge [employer] Other [employer] Other 08-11-2022 12:00-0400 Diastolic blood pressure 70 mm[Hg] [employer] Other [employer] Other 08-11-2022 12:00-0400 Respiratory rate 16 /min [employer] Other [employer] Other 08-11-2022 12:00-0400 Systolic blood pressure 146 mm[Hg] [employer] Other [employer] Other 07-15-2022 15:00-0500 Diastolic blood pressure 52 mm[Hg] Akira Ferrer MD Work Phone: [employer] Comment on above: Kenya Irizarry CRNA notified. ok to discharge p t and patient notified they need to take BP medication when they get home. 07-15-2022 15:00-0500 Heart rate 62 /min Akira Ferrer MD Work Phone: [facility] 07-15-2022 15:00-0500 Respiratory rate 16 /min Akira Ferrer MD Work Phone: [facility] 07-15-2022 15:00-0500 SaO2% (BldA) [Mass fraction] 95 % Akira Ferrer MD Work Phone: [facility] 07-15-2022 15:00-0500 Systolic blood pressure 162 mm[Hg] Akira Ferrer MD Work Phone: [facility] Comment on above: Kenya Irizarry LITERACY EDUCATION PROFESSOR notified. ok to discharge p t and patient notified they need to take BP medication when they get home. 07-15-2022 14:15-0500 Body temperature 96.69 [degF] Akira Ferrer MD [facility]: [facility] 07-15-2022 11:08-0500 Body height 182.9 cm Akira Ferrer MD Work Phone: [facility] [employer] 07-15-2022 11:08-0500 Body mass index (BMI) [Ratio] 33.36 kg/m2 Akira Ferrer MD Work Phone: [facility] [employer] 07-15-2022 11:08-0500 Body weight 111.58 kg Akira Ferrer MD Work Phone: [facility] [employer] 07-02-2022 12:30-0500 Body height 182.88 cm Jorge Ball Other [employer] Other 07-02-2022 12:30-0500 Body mass index (BMI) [Ratio] 33.5 kg/m2 Jorge Ball Other [employer] Other 07-02-2022 12:30-0500 Body weight 112.04 kg Jorge Ball Other [employer] Other 07-02-2022 12:30-0500 Diastolic blood pressure 54 mm[Hg] Jorge Ball Other [employer] Other 07-02-2022 12:30-0500 Respiratory rate 16 /min Jorge Ball Other [employer] Other 07-02-2022 12:30-0500 Systolic blood pressure 102 mm[Hg] Jorge Ball Other [employer] Other 06-01-2021 07:40-0500 Body temperature 96.8 [degF] Lamont Vasquez MD Work Phone: [employer] 06-01-2021 07:40-0500 Diastolic blood pressure 72 mm[Hg] Lamont Vasquez MD Work Phone: [employer] 06-01-2021 07:40-0500 Heart rate 66 /min Lamont Vasquez MD Work Phone: [employer] 06-01-2021 07:40-0500 Respiratory rate 18 /min Lamont Vasquez MD Work Phone: [employer] 06-01-2021 07:40-0500 SaO2% (BldA) [Mass fraction] 95 % Lamont Vasquez MD Work Phone: [employer] 06-01-2021 07:40-0500 Systolic blood pressure 156 mm[Hg] Lamont Vasquez MD Work Phone: [employer] 06-01-2021 03:30-0500 Body mass index (BMI) [Ratio] 32.79 kg/m2 Lamont Vasquez MD Work Phone: [employer] 06-01-2021 03:30-0500 Body weight 109.68 kg Lamont Vasquez MD Work Phone: [employer] 05-28-2021 12:51-0500 Body height 182.9 cm Lamont Vasquez MD Work Phone: [employer] Encounters Encounter Date Encounter Type Care Provider Facility Start: 12-27-2024 End: 12-27-2024 ambulatory JORGE PRITCHETT [facility] Start: 12-27-2024 End: 12-27-2024 Subsequent hospital visit by physician Quincy Penn DPM Work Phone: [facility] Comment on above: Critical limb ischem ia of both lower extremities (HCC) (Primary Dx); Eschar of toe; Gangrene of toe of both feet (HCC) Start: 12-23-2024 End: 12-23-2024 ambulatory Jorge Pritchett DO Work Phone: [facility] Work Phone: Start: 12-23-2024 End: 12-23-2024 Patient encounter procedure Jorge Pritchett DO -[facility] Work Phone: Start: 12-23-2024 End: 12-23-2024 Patient encounter status Jorge Pritchett DO [facility] Start: 12-06-2024 End: 12-06-2024 ambulatory HALLIECHRISTIAN CORRAL [facility] Start: 12-06-2024 End: 12-06-2024 Subsequent hospital visit by physician Quincy Penn DPM Work Phone: [facility] Comment on above: Critical limb ischem ia of both lower extremities (HCC) (Primary Dx); Eschar of toe; Gangrene of toe of both feet (HCC) Start: 11-22-2024 End: 11-22-2024 [facility] LEV DUARTE [facility] Start: 11-22-2024 End: 11-22-2024 Subsequent hospital visit by physician Quincy Penn DPM Work Phone: [facility] Comment on above: Orthopedic aftercare (Primary Dx); History of amputation of right great toe Start: 11-16-2024 End: 11-16-2024 [facility] ALMA KAN [facility] Start: 11-15-2024 Non-patient / Non-visit Jeremias Lucero DO [facility] Work Phone: Start: 11-15-2024 End: 11-15-2024 ambulatory [facility] Start: 11-15-2024 End: 11-15-2024 Subsequent hospital visit by physician Quincy PECKM Work Phone: [facility] Comment on above: Orthopedic aftercare (Primary Dx); History of amputation of right great toe Start: 11-11-2024 End: 11-11-2024 [facility] Start: 11-11-2024 End: 11-11-2024 Subsequent hospital visit by physician Quincy Penn DPM Work Phone: [facility] Comment on above: Acute osteomyelitis of right foot (HCC); Open wound of toe(s) Start: 11-09-2024 End: 11-09-2024 [employer] Alice Cochran DPM Work Phone: [facility] Start: 11-09-2024 End: 11-09-2024 [employer] Alice Cochran DPM Work Phone: [facility] Start: 11-09-2024 End: 11-09-2024 Patient encounter procedure Alice Cochran DPM Work Phone: [facility] Comment on above: Dermatophytosis of n ail (Primary Dx); Dystrophic nail; Type II diabetes mellitus with peripheral circulatory disorder (HCC); Diabetic polyneuropathy associated with type 2 diabetes mellitus ([facility]) Start: 11-09-2024 End: 11-09-2024 ambulatory ALICE COCHRAN Not Available Start: 11-01-2024 End: 11-01-2024 [facility] Start: 11-01-2024 End: 11-01-2024 Subsequent hospital visit by physician Jorge Pritchett DO Work Phone: [facility] Start: 11-01-2024 End: 11-01-2024 [facility] Start: 11-01-2024 End: 11-01-2024 Subsequent hospital visit by physician Quincy Penn DPBettina Work Phone: [facility] Comment on above: Osteomyelitis of gre at toe of right foot (HCC) (Primary Dx); Critical limb ischemia of both lower extremities ([facility]); Infection of toe; Chronic ulcer of great toe of right foot with fat layer exposed ([facility]) Start: 10-20-2024 End: 10-22-2024 [facility] Start: 10-20-2024 End: 10-22-2024 Subsequent hospital visit by physician Quincy Penn DPM Work Phone: [facility] Comment on above: Acute on chronic cintia stolic (congestive) heart failure (HCC); ASHD (arteriosclerotic heart disease); S/P angioplasty with stent; Essential hypertension; Mixed hyperlipidemia; PAD (peripheral artery disease); CHRIS (obstructive sleep apnea); Stage 3a chronic kidney disease (HCC) Chronic ulcer of gre at toe of right foot with fat layer exposed ([facility]); Diabetic ulcer of right great toe (HCC) Start: 10-12-2024 ambulatory ALMA KAN [facility] Start: 10-04-2024 End: 10-04-20[facility] Start: 10-04-2024 End: 10-04-2024 Subsequent hospital visit by physician Quincy Penn DPM Work Phone: [facility] Comment on above: Chronic ulcer of gre at toe of right foot with fat layer exposed (HCC) (Primary Dx); Diabetic ulcer of right great toe (HCC) Screening PSA (prost ate specific antigen) Start: 09-21-2024 End: 09-21-2024 ambulatory [facility] Work Phone: Start: 09-21-2024 End: 09-21-2024 Patient encounter procedure [facility] Work Phone: Start: 09-20-2024 End: 09-20-2024 ambulatory [facility] Start: 09-20-2024 End: 09-20-2024 Subsequent hospital visit by physician Jorge Pritchett DO Work Phone: [facility] Start: 09-06-2024 End: 09-08-2024 [facility] Start: 09-06-2024 End: 09-08-2024 Subsequent hospital visit by physician Quincy Penn DPM Work Phone: [facility] Comment on above: Chronic ulcer of gre at toe of right foot with fat layer exposed (HCC) (Primary Dx); Critical limb ischemia of both lower extremities Chronic ulcer of gre at toe of right foot with fat layer exposed (HCC) Start: 08-23-2024 End: 08-23-2024 ambulatory [facility] Start: 08-23-2024 End: 08-23-2024 Subsequent hospital visit by physician Jorge Pritchett DO Work Phone: [facility] Start: 08-16-2024 End: 08-18-2024 ambulatory QUINCY PENN [facility] Start: 08-16-2024 End: 08-18-2024 Subsequent hospital visit by physician Yamileth Bach Dr Room 4 [facility] Comment on above: Eschar of toe; Chronic ulcer of great toe of right foot with fat layer exposed (HCC) Start: 08-16-2024 End: 08-16-2024 ambulatory [facility] Start: 08-16-2024 End: 08-16-2024 Subsequent hospital visit by physician Quincy Penn DPM Work Phone: [facility] Comment on above: Chronic ulcer of gre at toe of right foot with fat layer exposed (HCC) (Primary Dx); Eschar of toe; Critical limb ischemia of both lower extremities (HCC); Gangrene of toe of both feet (HCC) Start: 08-08-2024 End: 08-08-2024 ambulatory ALICE COCHRAN Not Available Start: 08-05-2024 End: 08-05-2024 [facility] Work Phone: Start: 08-02-2024 Non-patient / Non-visit [facility] Work Phone: Start: 08-01-2024 Non-patient / Non-visit [facility] Work Phone: Start: 07-30-2024 Non-patient / Non-visit [facility] Work Phone: Start: 07-23-2024 End: 07-29-2024 Evaluation and management of inpatient Werner Sunshine MD Facility:[facility] Start: 07-22-2024 End: 07-23-2024 Emergency department patient visit Maribel Llanos DO Work Phone: [facility] Comment on above: Acute renal failure superimposed on chronic kidney disease, unspecified acute renal failure type, unspecified CKD stage (Primary Dx); Dehydration Start: 07-13-2024 End: 07-13-2024 ambulatory NILES GLASS [facility] Start: 07-13-2024 End: 07-13-2024 Subsequent hospital visit by physician Jorge Pritchett DO Work Phone: [facility] Start: 07-13-2024 End: 07-13-2024 ambulatory ALMA KAN [facility] Start: 07-12-2024 End: 07-12-2024 ambulatory [facility] Work Phone: Start: 07-12-2024 End: 07-12-2024 Patient encounter procedure [facility] Work Phone: Start: 07-12-2024 End: 07-12-2024 ambulatory JORGE PRITCHETT [facility] Start: 07-12-2024 End: 07-12-2024 Subsequent hospital visit by physician Quincy Penn DPM Work Phone: [facility] Comment on above: Gangrene of toe of b oth feet (HCC) (Primary Dx); Eschar of toe; Critical limb ischemia of both lower extremities ([facility]) Start: 06-27-2024 End: 06-27-2024 ambulatory HARRISON U LEISA [facility] Start: 06-27-2024 End: 06-27-2024 Subsequent hospital visit by physician Jorge Pritchett DO Work Phone: [facility] Start: 05-26-2024 End: 05-26-2024 Patient encounter procedure Alice Cochran DPM Work Phone: [facility] Comment on above: Dermatophytosis of n ail (Primary Dx); Dystrophic nail; Type II diabetes mellitus with peripheral circulatory disorder ([facility]); Diabetic polyneuropathy associated with type 2 diabetes mellitus ([facility]) Start: 05-26-2024 End: 05-26-2024 ambulatory ALICE COCHRAN Not Available Start: 05-26-2024 End: 05-26-2024 [employer]amboo flowsheet Alice Cochran DPM Work Phone: [facility] Start: 05-26-2024 End: 05-26-2024 [employer]amboo flowsheet Alice Cochran DPM Work Phone: [facility] Start: 05-13-2024 End: 05-13-2024 [facility] Start: 05-13-2024 End: 05-13-2024 Subsequent hospital visit by physician Jorge Pritchett DO Work Phone: [facility] Start: 05-12-2024 Non-patient / Non-visit [facility] Work Phone: Start: 05-12-2024 End: 05-12-2024 Patient encounter procedure [facility] Work Phone: Start: 05-11-2024 End: 05-11-2024 [facility] Start: 05-11-2024 End: 05-11-2024 Subsequent hospital visit by physician Jorge Pritchett DO Work Phone: [facility] Start: 05-06-2024 End: 05-06-2024 [facility] Start: 05-06-2024 End: 05-06-2024 Subsequent hospital visit by physician Jorge Pritchett DO Work Phone: [facility] Comment on above: Acute on chronic cintia stolic (congestive) heart failure ([facility]); ASHD (arteriosclerotic heart disease); S/P angioplasty with stent; Essential hypertension; Mixed hyperlipidemia; PAD (peripheral artery disease) ([facility]); CHRIS (obstructive sleep apnea); Stage 3a chronic kidney disease ([facility]); Obesity, unspecified class, unspecified obesity type, unspecified whether serious comorbidity present; Acute on chronic combined systolic and diastolic congestive heart failure (HCC) Start: 04-25-2024 End: 04-27-2024 [facility] FLOYD VEE [facility] Start: 04-25-2024 End: 04-27-2024 Subsequent hospital visit by physician Floyd Vee MD Work Phone: [facility] Comment on above: Critical limb ischem ia of both lower extremities (HCC) Start: 04-13-2024 End: 04-13-2024 [facility] Start: 04-01-2024 End: 04-01-2024 ambulatory HARRISON BELTRAN [facility] Start: 04-01-2024 End: 04-01-2024 Subsequent hospital visit by physician Jorge Pritchett DO Work Phone: [facility] Start: 03-23-2024 End: 03-23-2024 Bamboo flowsheet Alice Cochran DPM Work Phone: [facility] Start: 03-23-2024 End: 03-23-2024 Bamboo flowsheet Alice Cochran DPM Work Phone: [facility] Start: 03-23-2024 End: 03-23-2024 Patient encounter procedure Alice Cochran DPM Work Phone: [facility] Comment on above: Dermatophytosis of n ail (Primary Dx); Dystrophic nail; Type II diabetes mellitus with peripheral circulatory disorder ([facility]); Diabetic polyneuropathy associated with type 2 diabetes mellitus ([facility]) Start: 03-23-2024 End: 03-23-2024 ambulatory ALICE COCHRAN Not Available Start: 03-15-2024 End: 03-15-2024 ambulatory ALMA Hinkle [facility] Start: 03-15-2024 End: 03-15-2024 Subsequent hospital visit by physician Jorge Pritchett DO Work Phone: [facility] Comment on above: Acute on chronic cintia stolic (congestive) heart failure ([facility]); ASHD (arteriosclerotic heart disease); Essential hypertension; Mixed hyperlipidemia; PAD (peripheral artery disease) ([facility]); CHRIS (obstructive sleep apnea); Obesity, unspecified class, unspecified obesity type, unspecified whether serious comorbidity present Start: 03-08-2024 End: 03-08-2024 ambulatory FLOYD VEE [facility] Start: 02-28-2024 End: 02-28-2024 Emergency department patient visit Gabby Orlando MD Work Phone: [facility] ED Comment on above: Bilateral lower leg cellulitis (Primary Dx); Pain in left lower leg Start: 02-24-2024 End: 02-27-2024 Evaluation and management of inpatient Fred Villegas MD Work Phone: [facility] Comment on above: Bilateral lower leg cellulitis (Primary Dx); Edema of both lower extremities due to peripheral venous insufficiency; Chronic diastolic congestive heart failure (HCC) Start: 02-24-2024 End: 02-24-2024 ambulatory [facility] Start: 02-17-2024 End: 02-17-2024 Bamboo flowsheet Alice Cochran DPM Work Phone: [facility] Start: 02-17-2024 End: 02-17-2024 Bamboo flowsheet Alice Cochran DPM Work Phone: [facility] Start: 02-17-2024 End: 02-17-2024 Office outpatient visit 15 minutes Alice Cochran DPM Work Phone: [facility] Comment on above: Cellulitis of left f oot (Primary Dx); Type II diabetes mellitus with peripheral circulatory disorder (CMS/HCC); Diabetic polyneuropathy associated with type 2 diabetes mellitus (CMS/HCC); Skin ulcer of midfoot region, left, limited to breakdown of skin ([facility]/HCC) Start: 02-17-2024 End: 02-17-2024 ambulatory ALICE COCHRAN Not Available Start: 02-09-2024 End: 02-09-2024 ambulatory [facility] Start: 02-09-2024 End: 02-09-2024 Subsequent hospital visit by physician Jorge Pritchett DO Work Phone: [facility] Start: 02-09-2024 End: 02-09-2024 ambulatory [facility] Start: 02-05-2024 End: 02-05-2024 Bamboo flowsheet Alice Cochran DPM Work Phone: [facility] Start: 02-05-2024 End: 02-05-2024 Bamboo flowsheet Alice Cochran DPM Work Phone: [facility] Start: 02-05-2024 End: 02-05-2024 ambulatory ALICE COCHRAN Not Available Start: 02-05-2024 End: 02-05-2024 Office outpatient visit 25 minutes Alice Cochran DPM Work Phone: [facility] Comment on above: Cellulitis of left f oot (Primary Dx); Type II diabetes mellitus with peripheral circulatory disorder (CMS/HCC); Diabetic polyneuropathy associated with type 2 diabetes mellitus (CMS/HCC); Skin ulcer of midfoot region, left, limited to breakdown of skin (CMS/HCC) Start: 02-03-2024 End: 02-03-2024 ambulatory [facility] Work Phone: Start: 02-03-2024 End: 02-03-2024 Patient encounter procedure [facility] Work Phone: Start: 01-26-2024 ambulatory [facility] Start: 01-04-2024 End: 01-04-2024 ambulatory ALICE COCHRAN Not Available Start: 12-21-2023 End: 12-21-2023 ambulatory TIGIST CORREA [facility] Start: 12-21-2023 End: 12-21-2023 Subsequent hospital visit by physician Tigist Correa MD Work Phone: [facility] Cardiac Cath/IR Lab Comment on above: CHRIS (obstructive sle ep apnea) (Primary Dx); Abnormal stress test; Chest pain; CAD (coronary artery disease); Constipation, unspecified constipation type; Coronary artery disease involving [place] heart with angina pectoris and documented spasm, unspecified vessel or lesion type ([facility]) Start: 12-02-2023 End: 12-02-2023 Subsequent hospital visit by physician Yumiko Montes PTA [facility] Physical Therapy Comment on above: Arrived Start: 11-11-2023 End: 11-11-2023 Subsequent hospital visit by physician Jorge Pritchett DO Work Phone: [facility] Comment on above: Chronic diastolic he art failure (HCC) Start: 11-10-2023 End: 11-10-2023 Encounter for general adult medical examination without abnormal findings [facility] Start: 11-10-2023 End: 11-10-2023 [facility] Work Phone: Start: 11-09-2023 End: 11-09-2023 Subsequent hospital visit by physician Yumiko Montes PTA [facility] Physical Therapy Comment on above: Arrived Start: 11-06-2023 End: 11-06-2023 Subsequent hospital visit by physician Yumiko Montes PTA [facility] Physical Therapy Comment on above: Arrived Start: 11-03-2023 End: 11-03-2023 Subsequent hospital visit by physician Akira Ferrer MD Work Phone: [facility] Start: 10-22-2023 End: 10-22-2023 Subsequent hospital visit by physician Yumiko Montes PTA [facility] Physical Therapy Comment on above: Arrived Start: 08-12-2023 End: 08-12-2023 ambulatory [facility] Work Phone: Start: 08-12-2023 End: 08-12-2023 [facility] Work Phone: Start: 08-05-2023 End: 08-05-2023 Subsequent hospital visit by physician Jorge Pritchett DO Work Phone: [facility] Comment on above: Screening PSA (prost ate specific antigen); Incomplete emptying of bladder Start: 07-27-2023 Non-patient / [facility]-visit [facility] Work Phone: Start: 07-27-2023 Non-patient / Non-visit [facility] Work Phone: Start: 06-30-2023 End: 06-30-2023 Subsequent hospital visit by physician Jorge Pritchett DO Work Phone: [facility] Start: 06-02-2023 End: 06-02-2023 ambulatory Jorge Pritchett Other [facility] Other Start: 06-02-2023 Telephone encounter Jorge Ball [facility] Start: 05-13-2023 End: 05-13-2023 ambulatory Jorge Ball Other [employer] Other Start: 05-13-2023 Office outpatient vi sit 25 minutes Jorge Ball [facility] Start: 05-07-2023 End: 05-07-2023 ambulatory Jorge Ball Other [employer] Other Start: 05-07-2023 Telephone encounter Jorge Ball [facility] Start: 04-26-2023 End: 04-26-2023 ambulatory Jorge Ball Other [employer] Other Start: 04-26-2023 Telephone encounter Jorge Ball [facility] Start: 04-19-2023 End: 04-19-2023 ambulatory Jorge Ball Other [employer] Other Start: 04-19-2023 Telephone encounter Jorge Ball [facility] Start: 04-06-2023 End: 04-06-2023 ambulatory Jorge Ball Other [employer] Other Start: 04-06-2023 Telephone encounter Jorge Ball [facility] Start: 03-30-2023 End: 03-30-2023 ambulatory Jorge Ball Other [employer] Other Start: 03-30-2023 Telephone encounter Jorge Ball [facility] Start: 02-26-2023 End: 02-26-2023 ambulatory Jorge Ball Other [employer] Other Start: 02-26-2023 Telephone encounter Jorge Ball [facility] Start: 02-11-2023 End: 02-11-2023 ambulatory Jorge Ball Other [employer] Other Start: 02-11-2023 Office outpatient vi sit 25 minutes Jorge Ball [facility] Start: 01-15-2023 End: 01-17-2023 Subsequent hospital visit by physician Harrison Beltran DO Work Phone: [facility] Nuclear Medicine Comment on above: Arrived Start: 01-06-2023 End: 01-06-2023 ambulatory Jorge Pritchett Other [employer] Other Start: 01-06-2023 Telephone encounter Jorge [facility] Start: 12-29-2022 End: 12-29-2022 ambulatory Jorge Pritchett Other [employer] Other Start: 12-29-2022 Telephone encounter Jorge Pritchett [facility] Start: 12-22-2022 End: 12-24-2022 Subsequent hospital visit by physician Yamileth Bach Dr Room 4 [facility] Radiology Comment on above: Dyspnea on exertion Start: 12-18-2022 End: 12-18-2022 Subsequent hospital visit by physician Rashel Cárdenas PT [facility] Physical Therapy Comment on above: Arrived Start: 12-11-2022 End: 12-11-2022 Subsequent hospital visit by physician Rashel Cárdenas PT [facility] Physical Therapy Comment on above: Arrived Start: 12-03-2022 End: 12-03-2022 Subsequent hospital visit by physician Shirin Bajwa PTA [facility] Physical Therapy Comment on above: Arrived Start: 12-01-2022 End: 12-01-2022 Subsequent hospital visit by physician Rashel Cárdenas PT [facility] Physical Therapy Comment on above: Arrived Start: 11-14-2022 End: 11-14-2022 Subsequent hospital visit by physician Sharonda Gonzalez PTA [facility] Physical Therapy Comment on above: Arrived Start: 11-11-2022 End: 11-11-2022 ambulatory Jorge Pritchett Other [facility] Other Start: 11-11-2022 Office outpatient vi sit 25 minutes Jorge Pritchett [facility] Start: 11-07-2022 End: 11-07-2022 Subsequent hospital visit by physician Rashel Cárdenas PT [facility] Physical Therapy Comment on above: Arrived Start: 11-06-2022 End: 11-06-2022 ambulatory Jorge Pritchett Facility:[facility] Start: 11-06-2022 End: 11-06-2022 ambulatory [employer] Pia Douglass Work Phone: [facility] Work Phone: Start: 11-06-2022 End: 11-06-2022 Patient encounter procedure [employer] Pia Douglass Work Phone: [facility] [employer] Work Phone: Start: 10-28-2022 End: 10-28-2022 ambulatory Jorge Pritchett Other [employer] Other Start: 10-28-2022 Telephone encounter Jorge Pritchett [facility] Start: 10-27-2022 End: 10-27-2022 Subsequent hospital visit by physician Shirin Bajwa PTA [facility] Physical Therapy Comment on above: Arrived Start: 10-20-2022 End: 10-20-[address] JORGE PRITCHETT Facility:[facility] Start: 10-13-2022 End: 10-13-[address] ALICE CIFUENTES Facility:[facility] Start: 10-03-2022 End: 10-03-2022 Subsequent hospital visit by physician Shirin Bajwa PTA [facility] Physical Therapy Comment on above: Arrived Start: 09-29-2022 End: 09-29-2022 Subsequent hospital visit by physician Shirin Bajwa PTA [facility] Physical Therapy Comment on above: Arrived Start: 09-15-2022 End: 09-15-2022 Subsequent hospital visit by physician Shirin Bajwa PTA [facility] Physical Therapy Comment on above: Arrived Start: 09-09-2022 End: 09-09-2022 ambulatory Jorge Pritchett Other [employer] Other Start: 09-09-2022 Telephone encounter Jorge ACUÑA [facility] Start: 09-05-2022 End: 09-05-2022 Subsequent hospital visit by physician Chris Sauceda PT [facility] Physical Therapy Comment on above: Arrived Start: 09-01-2022 End: 09-01-2022 Subsequent hospital visit by physician Shirin Bajwa PTA [facility] Physical Therapy Comment on above: Arrived Start: 08-29-2022 End: 08-29-2022 Subsequent hospital visit by physician Shirin Bajwa [employer] [facility] Physical Therapy Comment on above: Arrived Start: 08-25-2022 End: 08-25-2022 Subsequent hospital visit by physician Chris Sauceda PT [facility] Physical Therapy Comment on above: Arrived Start: 08-20-2022 End: 08-20-2022 Subsequent hospital visit by physician Kelly Amaya PT [facility] Physical Therapy Comment on above: Arrived Start: 08-11-2022 End: 08-11-2022 ambulatory Jorge Pritchett Other [employer] Other Start: 08-11-2022 Office outpatient vi sit 25 minutes Jorge Pritchett [facility] Start: 08-05-2022 End: 08-05-2022 Subsequent hospital visit by physician Jorge Pritchett DO Work Phone: [facility] Laboratory Comment on above: BPH with obstruction /lower urinary tract symptoms; Post-operative state Start: 07-15-2022 End: 07-15-2022 ambulatory Jorge Pritchett Other [employer] Other Start: 07-15-2022 Telephone encounter Jorge Pritchett [facility] Start: 07-15-2022 End: 07-15-2022 Subsequent hospital visit by physician Akira Ferrer MD Work Phone: [facility] OR Start: 07-14-2022 End: 07-14-2022 Subsequent hospital visit by physician [facility] Cardiology Stress Room [facility] Stress Lab Comment on above: Arrived Start: 07-11-2022 End: 07-11-2022 Patient encounter status [facility] Room [facility] Stress Lab Start: 07-11-2022 End: 07-11-2022 Subsequent hospital visit by physician [facility] Cardiology Stress Room [facility] Stress Lab Comment on above: Preop cardiovascular exam; ASHD (arteriosclerotic heart disease); S/P angioplasty with stent; Lightheaded; Chronic systolic congestive heart failure (HCC); Mixed hyperlipidemia; CHRIS on CPAP; Stage 3 chronic kidney disease, unspecified whether stage 3a or 3b CKD (HCC); Adenoma of left adrenal gland; History of stroke Start: 07-09-[address] JROGE PRITCHETT Facili ty:[facility]1 Start: 07-02-2022 End: 07-02-2022 ambulatory Jorge Pritchett Other [employer] Other Start: 07-02-2022 Encounter for other preprocedural examination Jorge Pritchett [facility] Start: 07-02-2022 Office outpatient vi sit 25 minutes Jorge Pritchett [facility] Start: 06-25-2022 End: 06-25-2022 Subsequent hospital visit by physician Jorge Pritchett DO Work Phone: [facility] Laboratory Comment on above: BPH with obstruction /lower urinary tract symptoms; Incomplete emptying of bladder; Frequency of urination; Urgency of micturition Start: 05-24-2022 End: 05-24-2022 Subsequent hospital visit by physician Jorge Bernal Phone: [facility] Laboratory Start: 05-23-2022 End: 05-23-2022 Subsequent hospital visit by physician Huang Urbina PT [facility] Physical Therapy Comment on above: Arrived Start: 05-23-2022 End: 05-23-2022 ambulatory Jorge Pritchett Other [employer] Other Start: 05-23-2022 Telephone encounter Jorge Pritchett [facility] Start: 05-22-2022 End: 05-22-2022 Subsequent hospital visit by physician Huang Urbina PT [facility] Physical Therapy Comment on above: Arrived Start: 05-20-2022 End: 05-22-2022 Subsequent hospital visit by physician [facility] Ultrasound Room 2 [facility] Ultrasound Comment on above: Incomplete bladder e mptying Start: 05-14-2022 End: 05-14-2022 ambulatory PETTY ANGULO . 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); Intermittent claudication (HCC); Primary hypertension; Mixed hyperlipidemia; CHRIS (obstructive sleep apnea); Stage 3 chronic kidney disease, unspecified whether stage 3a or 3b CKD (HCC); Primary hyperparathyroidism (HCC); Adenoma of left adrenal gland Start: 05-06-2022 End: 05-06-2022 Subsequent hospital visit by physician Huang Urbina PT [facility] Physical Therapy Comment on above: Arrived Start: 05-02-2022 End: 05-02-2022 Subsequent hospital visit by physician Doc Agrawal [employer] [facility] Physical Therapy Comment on above: Arrived Start: 04-02-2022 End: 04-02-2022 Subsequent hospital visit by physician Doc Agrawal [employer] [facility] Physical Therapy Comment on above: Arrived Start: 03-31-2022 End: 03-31-2022 Subsequent hospital visit by physician Chris Sauceda PT [facility] Physical Therapy Comment on above: Arrived Start: 03-26-2022 End: 03-26-2022 Subsequent hospital visit by physician Shirin Bajwa [employer] [facility] Physical Therapy Comment on above: Arrived Start: 03-24-2022 End: 03-24-2022 Subsequent hospital visit by physician Huang Urbina PT [facility] Physical Therapy Comment on above: Arrived Start: 03-20-2022 End: 03-20-2022 Subsequent hospital visit by physician Jorge Pritchett DO Work Phone: [facility] Laboratory Comment on above: Incomplete emptying of bladder Start: 03-18-2022 End: 03-18-2022 Subsequent hospital visit by physician Chris Sauceda PT [facility] Physical Therapy Comment on above: Arrived Start: 03-14-2022 End: 03-14-2022 Subsequent hospital visit by physician Yumiko Montes [employer] [facility] Physical Therapy Comment on above: Arrived Start: 03-06-2022 End: 03-06-2022 Subsequent hospital visit by physician Rashel Cárdenas PT [facility] Physical Therapy Comment on above: Arrived Start: 03-04-2022 End: 03-04-2022 Subsequent hospital visit by physician Yumiko Montes [employer] [facility] Physical Therapy Comment on above: Arrived Start: 02-28-2022 End: 02-28-2022 Subsequent hospital visit by physician Huang Urbina PT [facility] Physical Therapy Comment on above: Arrived Start: 02-18-2022 End: 02-18-2022 Subsequent hospital visit by physician Colton Lim [facility] Physical Therapy Comment on above: Arrived Start: 02-14-2022 End: 02-14-2022 Subsequent hospital visit by physician Huang Urbina PT [facility] Physical Therapy Comment on above: Arrived Start: 02-07-2022 End: 02-07-2022 Subsequent hospital visit by physician Yumiko Montes [employer] [facility] Physical Therapy Comment on above: Arrived Start: 01-31-2022 End: 01-31-2022 Subsequent hospital visit by physician Doc Agrawal PTA [facility] Physical Therapy Comment on above: Arrived Start: 01-28-2022 End: 01-28-2022 Subsequent hospital visit by physician Rashel Cárdenas PT [facility] Physical Therapy Comment on above: Arrived Start: 01-24-2022 End: 01-24-2022 Subsequent hospital visit by physician Rashel Cárdenas PT [facility] Physical Therapy Comment on above: Arrived Start: 01-21-2022 End: 01-21-2022 Subsequent hospital visit by physician Doc Agrawal PTA [facility] Physical Therapy Comment on above: Arrived Start: 01-16-2022 End: 01-16-2022 Subsequent hospital visit by physician Rashel Cárdenas PT [facility] Physical Therapy Comment on above: Arrived Start: 01-09-2022 End: 01-09-2022 ambulatory Pia Douglass Facility:[facility] Start: 01-09-2022 End: 01-09-2022 Patient encounter procedure COUN[employer] PROFESSIONAL-C Pia Douglass Work Phone: [facility] [employer] Start: 01-08-2022 End: 01-08-2022 Subsequent hospital visit by physician Doc Agrawal PTA [facility] Physical Therapy Comment on above: Arrived Start: 01-06-2022 End: 01-06-2022 Subsequent hospital visit by physician Doc Agrawal PTA [facility] Physical Therapy Comment on above: Arrived Start: 01-03-2022 End: 01-03-2022 Subsequent hospital visit by physician Doc Agrawal PTA [facility] Physical Therapy Comment on above: Arrived Start: 01-01-2022 End: 01-01-2022 Subsequent hospital visit by physician Doc Agrawal PTA [facility] Physical Therapy Comment on above: Arrived Start: 12-30-2021 End: 12-30-2021 Subsequent hospital visit by physician Doc Agrawal PTA [facility] Physical Therapy Comment on above: Arrived Start: 12-27-2021 End: 12-27-2021 Subsequent hospital visit by physician Rashel Cárdenas PT [facility] Physical Therapy Comment on above: Arrived Start: 12-26-2021 End: 12-26-2021 Subsequent hospital visit by physician Doc Agrawal PTA [facility] Physical Therapy Comment on above: Arrived Start: 12-24-2021 End: 12-24-2021 Subsequent hospital visit by physician Colton Lim [facility] Physical Therapy Comment on above: Arrived Start: 12-18-2021 End: 12-18-2021 Subsequent hospital visit by physician Doc Agrawal PTA [facility] Physical Therapy Comment on above: Arrived Start: 12-17-2021 End: 12-17-2021 Subsequent hospital visit by physician Rashel Cárdenas PT [facility] Physical Therapy Comment on above: Arrived Start: 12-09-2021 End: 12-09-2021 Subsequent hospital visit by physician [facility] Cardiopulm Rehab Rm 4 [facility] Cardiac Rehab Comment on above: Arrived Start: 12-05-2021 End: 12-05-2021 Subsequent hospital visit by physician [facility] Cardiopulm Rehab Rm 4 [facility] Cardiac Rehab Comment on above: Arrived Start: 12-02-2021 End: 12-02-2021 Subsequent hospital visit by physician [facility] Cardiopulm Rehab Rm 4 [facility] Cardiac Rehab Comment on above: Arrived Start: 11-21-2021 End: 11-21-2021 Subsequent hospital visit by physician [facility] Card[facility]ulm Rehab Rm 2 [facility] Comment on above: Arrived Start: 11-18-2021 End: 11-18-2021 Subsequent hospital visit by physician Josefa Ruvalcaba RD, DEBORAH Work Phone: [facility] Diet and Nutrition Comment on above: Arrived Start: 10-31-2021 End: 10-31-2021 Subsequent hospital visit by physician [facility] Cardiopulm Rehab Rm 2 [facility] Cardiac Rehab Comment on above: Arrived Start: 10-28-2021 End: 10-28-2021 Subsequent hospital visit by physician [facility] Cardiopulm Rehab Rm 2 [facility] Cardiac Rehab Comment on above: Arrived Start: 10-23-2021 End: 10-23-2021 Subsequent hospital visit by physician [facility] Cardiopulm Rehab Rm 2 [facility] Cardiac Rehab Comment on above: Arrived Start: 10-17-2021 End: 10-17-2021 Subsequent hospital visit by physician [facility] Cardiopulm Rehab Rm 2 [facility] Cardiac Rehab Comment on above: Arrived Start: 10-14-2021 End: 10-14-2021 Subsequent hospital visit by physician [facility] Cardiopulm Rehab Rm 2 [facility] Cardiac Rehab Comment on above: Arrived Start: 10-03-2021 End: 10-03-2021 Subsequent hospital visit by physician [facility] Cardiopulm Rehab Rm 2 [facility] Cardiac Rehab Comment on above: Arrived Start: 09-30-2021 End: 09-30-2021 Subsequent hospital visit by physician [facility] Cardiopulm Rehab Rm 2 [facility] Cardiac Rehab Comment on above: Arrived Start: 09-27-2021 End: 09-27-2021 Subsequent hospital visit by physician Yamileth Cr Education Room [facility] Cardiac Rehab Comment on above: Arrived Start: 09-11-2021 End: 09-13-2021 Subsequent hospital visit by physician [facility] Cat Scan Room [facility] CT Scan Comment on above: Uricaciduria Start: 06-12-2021 End: 06-20-2021 Evaluation and management of inpatient [facility] Start: 05-27-2021 End: 06-01-2021 Evaluation and management of inpatient Lamont Vasquez MD Work Phone: [facility] MED SURG Start: 04-24-2021 End: 04-24-2021 Subsequent hospital visit by physician [facility] Sleep Rm 1 [facility] Sleep Center Comment on above: Arrived Start: 07-25-2020 End: 07-25-2020 Subsequent hospital visit by physician Pia Douglass [facility] Laboratory Comment on above: BPH with obstruction /lower urinary tract symptoms; Incomplete emptying of bladder Procedures Date Procedure Procedure Detail Performing Clinician Start: 12-06-2024 Renal function panel Steen rubi Corral [employer] HOU[employer] MECHANIC - COLOR TECHNICIAN Work Phone: Start: 12-06-2024 Urinalysis microscopic only Hallie Croral [employer] HOUSE MECHANIC - COLOR TECHNICIAN Work Phone: Start: 12-06-2024 Urnls dip stick/tabl et rgnt auto w/o microscopy Hallie Corral [employer] HOUSE MECHANIC - COLOR TECHNICIAN Work Phone: Start: 11-11-2024 GLUCOSE, WHOLE BLOOD Cherise hn W Bremyer DPM Work Phone: Start: 11-11-2024 GLUCOSE, WHOLE BLOOD Cherise hn W Bremyer DPM Work Phone: Start: 11-01-2024 Renal function panel Br vanviola Duarte [employer]ER HOUSE MECHANIC - COLOR TECHNICIAN Work Phone: Start: 11-01-2024 Urinalysis microscopic only Lev Duarte BO[employer]ER HOUSE MECHANIC - COLOR TECHNICIAN Work Phone: Start: 11-01-2024 Urnls dip stick/tabl et rgnt auto w/o microscopy Lev Duarte BOILER HOUSE MECHANIC - COLOR TECHNICIAN Work Phone: Start: 10-20-2024 Basic metabolic pane l calcium total Lev Duarte [employer] HOUSE MECHANIC - COLOR TECHNICIAN Work Phone: Start: 10-04-2024 Hemoglobin glycosylated a1c Jorge Ball DO Work Phone: Start: 09-20-2024 Urinalysis microscopic only Benahili U Iboaya DO Work Phone: Start: 09-20-2024 Urnls dip stick/tabl et rgnt auto w/o microscopy Benahili U Iboaya DO Work Phone: Start: 09-20-2024 End: 09-20-2024 Renal function panel Benahili U Iboaya D O Work Phone: Start: 08-23-2024 Renal function panel Hayden Price PA-C Work Phone: Start: 07-22-2024 Ecg routine ecg w/le ast 12 lds w/i&r Asha Godfrey MD Work Phone: Start: 07-22-2024 Comprehensive metabo lic panel Maribel Ragsdale Llanos DO Work Phone: Start: 07-22-2024 COVID-19, RAPID Maribel Ragsdale Llanos DO Work Phone: Start: 07-22-2024 End: 07-22-2024 Iaadiadoo influenza Maribel Ragsdale Llanos DO Work Phone: Start: 07-22-2024 Ct abdomen & pelvis w/o contrast material Maribel Ragsdale Llanos DO Work Phone: Start: 07-22-2024 Urnls dip stick/tabl et rgnt auto w/o microscopy Maribel Ragsdale Llanos DO Work Phone: Start: 07-13-2024 Renal function panel Negrito Glass [employer]ER HOUSE MECHANIC - COLOR TECHNICIAN Work Phone: Start: 06-27-2024 Renal function panel Be nahili U Iboaya DO Work Phone: Start: 06-27-2024 Urinalysis microscopic only Benahili U Iboaya DO Work Phone: Start: 06-27-2024 Urnls dip stick/tabl et rgnt auto w/o microscopy Benahili U Iboaya DO Work Phone: Start: 05-13-2024 Protein total xcpt refractometry urine Benahili U Iboaya DO Work Phone: Start: 05-13-2024 Urinalysis microscopic only Benahili U Iboaya DO Work Phone: Start: 05-13-2024 Urnls dip stick/tabl et rgnt auto w/o microscopy Benahili U Iboaya DO Work Phone: Start: 05-11-2024 Renal function panel Be nahili U Iboaya DO Work Phone: Start: 05-06-2024 Basic metabolic pane l calcium total Alma Kan MD Work Phone: Start: 05-06-2024 Cell count misc body fluids w/differential count Alma Kan MD Work Phone: Start: 04-25-2024 Dup-scan lxtr art/ar tl bpgs compl bi study Floyd Vee MD Work Phone: Start: 04-01-2024 Renal function panel Be kristi Beltran DO Work Phone: Start: 03-15-2024 Basic metabolic pane l calcium total Alma Kan MD Work Phone: Start: 02-28-2024 Comprehensive metabo lic panel Gabby Orlando MD Work Phone: Start: 02-27-2024 GLUCOSE, WHOLE BLOOD Ch marci Villegas MD Work Phone: Start: 02-27-2024 GLUCOSE, WHOLE BLOOD Ch marci Villegas MD Work Phone: Start: 02-27-2024 BASIC METABOLIC PANE L W/ REFLEX TO MG FOR LOW K Cassie Lantigua BO[employer]ER HOUSE MECHANIC - [facility] Work Phone: Start: 02-27-2024 Blood count complete auto&auto difrntl wbc Cassie Lantigua [employer]ER HOUSE MECHANIC - [facility] Work Phone: Start: 02-26-2024 GLUCOSE, WHOLE BLOOD Ch marci Villegas MD Work Phone: Start: 02-26-2024 GLUCOSE, WHOLE BLOOD Ch marci Villegas MD Work Phone: Start: 02-26-2024 GLUCOSE, WHOLE BLOOD Ch marci Villegas MD Work Phone: Start: 02-26-2024 GLUCOSE, WHOLE BLOOD Ch marci Villegas MD Work Phone: Start: 02-26-2024 BASIC METABOLIC PANE L W/ REFLEX TO MG FOR LOW K Cassie Lantigua BO[employer]ER HOUSE MECHANIC - [facility] Work Phone: Start: 02-26-2024 Blood count complete auto&auto difrntl wbc Cassie Lantigua BOILER HOUSE MECHANIC - COLOR TECHNICIAN Work Phone: Start: 02-25-2024 End: 02-25-2024 GLUCOSE, WHOLE BLOOD Fred Villegas MD Work Phone: Start: 02-25-2024 Assay of [facility] [employer] COLOR TECHNICIAN Work Phone: Start: 02-25-2024 BASIC METABOLIC PANE L W/ REFLEX TO MG FOR LOW K Cassie [facility]by [facility] [employer] COLOR TECHNICIAN Work Phone: Start: 02-24-2024 GLUCOSE, WHOLE BLOOD Kalyn Villegas MD Work Phone: Start: 02-24-2024 GLUCOSE, WHOLE BLOOD Kalyn Villegas MD Work Phone: Start: 02-24-2024 End: 02-24-2024 Radiologic examination tibia & fibula 2 views Bettina Burks BOILER HOUSE MECHANIC [employer] [facility] Work Phone: Start: 02-24-2024 Comprehensive metabo lic panel Bettina Burks BOILER HOUSE MECHANIC [employer] COLOR TECHNICIAN Work Phone: Start: 02-24-2024 Culture bacterial quanttative colony count urine Bettina Burks BOILER HOUSE MECHANIC [employer] [facility] Work Phone: Start: 02-24-2024 Urnls dip stick/tabl et rgnt auto w/o microscopy Bettina Burks BOILER HOUSE MECHANIC [employer] [facility] Work Phone: Start: 02-09-2024 Basic metabolic pane l calcium total Jorge Ball DO Work Phone: Start: 02-09-2024 C-reactive protein Benj vasquez Ball DO Work Phone: Start: 12-21-2023 Basic metabolic pane l calcium total Hemindermoliver Correa MD Work Phone: Start: 11-11-2023 End: 11-11-2023 Basic metabolic panel calcium total Alma F Arin Kan MD Work Phone: Start: 11-11-2023 Lipid panel Jorge B all DO Work Phone: Start: 11-03-2023 Basic metabolic pane l calcium total Kena Boyd BOILER HOUSE MECHANIC - LITERACY EDUCATION PROFESSOR Work Phone: Start: 11-03-2023 Radiologic exam ches t single view Kena Boyd BOILER HOUSE MECHANIC - LITERACY EDUCATION PROFESSOR Work Phone: Start: 11-03-2023 GLUCOSE, WHOLE BLOOD Th michael Ferrer MD Work Phone: Start: 08-05-2023 Basic metabolic pane l calcium total Arabella D Gomez CARLSON Work Phone: Start: 06-30-2023 Renal function panel Be nahili U Iboaya DO Work Phone: Start: 06-30-2023 Urinalysis microscopic only Benahili U Iboaya DO Work Phone: Start: 06-30-2023 Urnls dip stick/tabl et rgnt auto w/o microscopy Benahili U Iboaya DO Work Phone: Start: 01-15-2023 Parathyroid planar i maging w/wo subtraction Benahili U Iboaya DO Work Phone: Start: 12-22-2022 Radiologic exam ches t 2 views Nancy Roe BOILER HOUSE MECHANIC - COLOR TECHNICIAN Work Phone: Start: 07-11-2022 Echo tthrc r-t 2d w/wom-mode compl spec&colr d Alma Kan MD Work Phone: Start: 06-25-2022 Ecg routine ecg w/le ast 12 lds w/i&r Akira Ferrer MD Work Phone: Start: 06-25-2022 Blood count complete auto&auto difrntl wbc Akira Ferrer MD Work Phone: Start: 05-24-2022 Albumin serum plasma /whole blood Jorge Ball DO Work Phone: Start: 05-24-2022 CALCIUM,TIMED UR Benjam in Ball DO Work Phone: Start: 05-20-2022 Us retroperitoneal r eal time w/image complete Arabella Lucero OneilBday PA-[employer] Work Phone: Start: 05-13-2022 PSA screening Jorge Pritchett DO Work Phone: Comment on above: The Cyndi ECLIA as say is used. Results obtained with different assay methods cannot be used interchangeably. Start: 05-13-2022 Basic metabolic pane l calcium total Arabella Lucero OneilBday PA-[employer] Work Phone: Start: 03-20-2022 Basic metabolic pane l calcium total Nancy W Jyothi BOILER HOUSE MECHANIC - COLOR TECHNICIAN Work Phone: Start: 09-11-2021 Ct abdomen & pelvis w/o contrast material Arabella RAINES-[employer] Work Phone: Start: 06-01-2021 Basic metabolic pane l calcium total Alice Mars MD Work Phone: Start: 05-31-2021 End: 06-01-2021 Rhythm ecg 1-3 leads w/interpretation & report Unknown Provider Result Start: 05-31-2021 Basic metabolic pane l calcium total Alice Mars MD Work Phone: Start: 05-30-2021 Rhythm ecg 1-3 leads w/interpretation & report Unknown Provider Result Start: 05-30-2021 Radex hip unilateral with pelvis 2-3 views Beata Harris PA-C Work Phone: Start: 05-30-2021 Assay of troponin quantitative Beata Harris PA-C Work Phone: Start: 05-30-2021 Basic metabolic pane l calcium total Alice Mars MD Work Phone: Start: 05-29-2021 Us retroperitoneal r eal time w/image complete Alma Kan MD Work Phone: Start: 05-29-2021 GLUCOSE, WHOLE BLOOD Di tanvi Vasquez MD Work Phone: Start: 05-29-2021 End: 05-30-2021 Rhythm ecg 1-3 leads w/interpretation & report Unknown Provider Result Start: 05-29-2021 End: 05-29-2021 Cardiac catheterization Alice Mars MD Work Phone: Start: 05-29-2021 Intermittent pulse oximetry Alice Mars MD Work Phone: Start: 05-29-2021 GLUCOSE, WHOLE BLOOD Thalia Vasquez MD Work Phone: Start: 05-29-2021 Basic metabolic pane l calcium total Alice Mars MD Work Phone: Start: 05-29-2021 Lipid panel Alma tafoya MD Work Phone: Start: 05-28-2021 GLUCOSE, WHOLE BLOOD Thalia Vasquez MD Work Phone: Start: 05-28-2021 GLUCOSE, WHOLE BLOOD Thalia Vasquez MD Work Phone: Start: 05-28-2021 Basic metabolic pane l calcium total Alice Mars MD Work Phone: Start: 05-28-2021 GLUCOSE, WHOLE BLOOD Thalia Vasquez MD Work Phone: Start: 05-28-2021 Echo tthrc r-t 2d w/wom-mode compl spec&colr d Cassie Morejon BOILER HOUSE MECHANIC - COLOR TECHNICIAN Work Phone: Start: 05-28-2021 GLUCOSE, WHOLE BLOOD Thalia Vasquez MD Work Phone: Start: 05-28-2021 GLUCOSE, WHOLE BLOOD Thalia Vasquez MD Work Phone: Start: 05-28-2021 End: 05-28-2021 Rhythm ecg 1-3 leads w/interpretation & report Unknown Provider Result Start: 05-28-2021 Assay of troponin quantitative Lamont Vasquez MD Work Phone: Start: 05-28-2021 Rhythm ecg 1-3 leads w/interpretation & report Unknown Provider Result Start: 05-27-2021 GLUCOSE, WHOLE BLOOD Thalia Vasquez MD Work Phone: Start: 05-27-2021 Ecg routine ecg w/le ast 12 lds i&r only Cassie Morejon [employer] Work Phone: Start: 05-27-2021 BASIC METABOLIC PANE L W/ REFLEX TO MG FOR LOW K Cassie oMrejon [employer] Work Phone: Start: 05-27-2021 Hemoglobin glycosylated a1c Cassie Morejon [employer] Work Phone: Start: 05-27-2021 Radiologic exam ches t 2 views Cassie Morejon [employer] Work Phone: Start: 07-25-2020 Urnls dip stick/tabl et reagent auto microscopy Akira Ferrer Work Phone: Depression screening Zoey Pritchett Other Depression screening Zoey Pritchett Other History of placement of stent for coronary artery disease Jorge Pritchett Other Screening for malign ant neoplasm of colon Jorge Pritchett Other Plan of Treatment Date Care Activity Detail Author Start: 11-12-2032 DTaP/Tdap/Td vaccine (2 - Td or Tdap) DTaP/Tdap/Td vaccine (2 - Td or Tdap) [facility] Start: 11-27-2026 Screening for malignant neoplasm of colon [facility] Start: 12-06-2025 GFR test (Diabetes, CKD 3-4, OR last GFR 15-59) GFR test (Diabetes, CKD 3-4, OR last GFR 15-59) [employer] [facility] Start: 11-01-2025 GFR test (Diabetes, CKD 3-4, OR last GFR 15-59) GFR test (Diabetes, CKD 3-4, OR last GFR 15-59) [facility] [facility] Start: 10-20-2025 GFR test (Diabetes, CKD 3-4, OR last GFR 15-59) GFR test (Diabetes, CKD 3-4, OR last GFR 15-59) [employer] [facility] Start: 10-09-2025 End: 10-09-2025 Patient encounter procedure 10/09/2025 1:00 PM EDT Office Visit [facility] UROLOGY Part of [facility] [address] [facility] [place] [place] [address] Arabella Dyer PA-C [address] [facility] [place] [place] [address] [address]Y [address] [facility] UROLOGY Part [facility] Comment on above: 1Y psa Start: 10-04-2025 Hemoglobin A1c measurement A1C test (Diabetic or Prediabetic) [facility] Start: 09-20-2025 GFR test (Diabetes, CKD 3-4, OR last GFR 15-59) GFR test (Diabetes, CKD 3-4, OR last GFR 15-59) [facility] Start: 08-23-2025 GFR test (Diabetes, CKD 3-4, OR last GFR 15-59) GFR test (Diabetes, CKD 3-4, OR last GFR 15-59) [facility] Start: 07-22-2025 GFR test (Diabetes, CKD 3-4, OR last GFR 15-59) GFR test (Diabetes, CKD 3-4, OR last GFR 15-59) [facility] Start: 07-13-2025 GFR test (Diabetes, CKD 3-4, OR last GFR 15-59) GFR test (Diabetes, CKD 3-4, OR last GFR 15-59) [facility] Start: 07-12-2025 End: 07-12-2025 Follow-up encounter 07/12/2025 1:00 PM EST Pharmacy Visit [facility] Medication Management [address] [place] [id number] Heart Failure FU- 6month follow-up [facility] Medication Management Comment on above: Heart Failure FU- 6month follow-up Start: 06-27-2025 GFR test (Diabetes, CKD 3-4, OR last GFR 15-59) GFR test (Diabetes, CKD 3-4, OR last GFR 15-59) [facility] Start: 05-11-2025 GFR test (Diabetes, CKD 3-4, OR last GFR 15-59) GFR test (Diabetes, CKD 3-4, OR last GFR 15-59) [facility] Start: 05-06-2025 GFR test (Diabetes, CKD 3-4, OR last GFR 15-59) GFR test (Diabetes, CKD 3-4, OR last GFR 15-59) [facility] Start: 04-27-2025 End: 04-27-2025 Patient encounter procedure 04/27/2025 1:40 PM EST Office Visit [facility] CARDIOLOGY [address] [phone] Alma Kan MD [address] [place] [address] [place] [address] [facility] CARDIOLOGY [facility] Comment on above: 6 month Start: 04-12-2025 End: 04-12-2025 Patient encounter procedure 04/12/2025 2:30 PM EST Office Visit [facility] UROLOGY [address] [id number] Arabella Dyer, PA-C [address] [place] [address] [address] [place] [address] [address]M [address] [facility] on above: 6M pvr Start: 04-01-2025 GFR test (Diabetes, CKD 3-4, OR last GFR 15-59) GFR test (Diabetes, CKD 3-4, OR last GFR 15-59) [facility] Start: 03-15-2025 GFR test (Diabetes, CKD 3-4, OR last GFR 15-59) GFR test (Diabetes, CKD 3-4, OR last GFR 15-59) [facility] Start: 03-15-2025 End: 03-15-2025 Patient encounter procedure 03/15/2025 1:30 PM EDT Office Visit [facility] VASCULAR Part [address] [facility] [place] [address] Floyd Vee MD [address] [place] [address] [address] [place] [address] F/U from 09/14/24 [facility] Part of [facility] Comment on above: F/U from 09/14/24 Start: 02-27-2025 GFR test (Diabetes, CKD 3-4, OR last GFR 15-59) GFR test (Diabetes, CKD 3-4, OR last GFR 15-59) [facility] Start: 02-26-2025 GFR test (Diabetes, CKD 3-4, OR last GFR 15-59) GFR test (Diabetes, CKD 3-4, OR last GFR 15-59) [facility] Start: 02-23-2025 Diabetic foot examination Diabetic foot exam [facility] Start: 02-23-2025 Hemoglobin A1c measurement A1C test (Diabetic or Prediabetic) [facility] Start: 02-16-2025 End: 02-16-2025 Patient encounter procedure 02/16/2025 2:45 PM EDT Procedure Visit [facility] [address] [place] [phone] Alice Cochran DPM [address] [place] [address] [facility] Start: 02-08-2025 GFR test (Diabetes, CKD 3-4, OR last GFR 15-59) GFR test (Diabetes, CKD 3-4, OR last GFR 15-59) [facility] Start: 12-27-2024 End: 12-27-2024 Patient encounter procedure 12/27/2024 10:30 AM EDT Appointment [facility] [address] [place] [address] Quincy Penn DPM [address] [facility] [address] [address] right great toe [facility] Comment on above: right great toe Start: 12-23-2024 Influenza vaccination [facility] Start: 12-20-2024 GFR test (Diabetes, CKD 3-4, OR last GFR 15-59) GFR test (Diabetes, CKD 3-4, OR last GFR 15-59) [facility] Start: 12-06-2024 End: 12-06-2024 Patient encounter procedure 12/06/2024 12:00 PM EDT Appointment [facility] [address] [place] [address] Quincy Penn, SUNDAY [address] [facility] [address] [facility] [place] [address] right great toe amputation [facility] Comment on above: right great toe amputation Start: 11-22-2024 End: 11-22-2024 Patient encounter procedure 11/22/2024 11:00 AM EDT Appointment [facility] [address] [facility] [address] [place] [address] Quincy Penn, [facility] [address] [place] [address] [address] [place] [address] right great toe, left 3rd toe [facility] Comment on above: right great toe, left 3rd toe Start: 11-16-2024 End: 11-16-2024 Follow-up encounter [facility] Medication Management Comment on above: Heart Failure FU- 3 month follow-up Heart Failure FU- 3 month follow-up, APPT CONFIRMED W/ 11/15/24 [facility] Start: 11-11-2024 End: 11-11-2024 Amputation toe metatarsophalangeal joint TOE AMPUTATION Acute osteomyelitis of right foot (HCC) 11/11/2024 7:40 AM EDT [facility] Start: 11-10-2024 GFR test (Diabetes, CKD 3-4, OR last GFR 15-59) GFR test (Diabetes, CKD 3-4, OR last GFR 15-59) [facility] Start: 11-10-2024 Hemoglobin A1c measurement A1C test (Diabetic or Prediabetic) [facility] Start: 11-10-2024 Lipid panel Lipids [facility] Start: 11-09-2024 End: 11-09-2024 Patient encounter procedure 11/09/2024 1:30 PM EDT Procedure Visit [facility] [address] [place] [phone] Alice Cochran DPM [address] [place], [place] [phone] Arrived [facility] Comment on above: Arrived Start: 11-02-2024 GFR test (Diabetes, CKD 3-4, OR last GFR 15-59) GFR test (Diabetes, CKD 3-4, OR last GFR 15-59) [facility] Start: 11-01-2024 End: 11-01-2024 Patient encounter procedure 11/01/2024 11:30 AM EDT Appointment [facility] [address] [facility] [address] [place] [phone] Quincy Penn DPM [address] [facility] [address] [address] right great toe, 2nd and 3rd toe [facility] Comment on above: right great toe, 2nd and 3rd toe Start: 10-20-2024 End: 10-20-2024 Patient encounter procedure 10/20/2024 2:00 PM EDT Office Visit [facility] CARDIOLOGY Part [address] [address] Lev Duarte, BOILER HOUSE MECHANIC - COLOR TECHNICIAN [address] [place] [address] 3 month/ [facility] Comment on above: 3 month/ Start: 10-12-2024 End: 10-12-2024 Follow-up encounter 10/12/2024 11:00 AM EDT Pharmacy Visit [facility] Medication Management [address] [place] [phone] Heart Failure FU- 3 month follow-up [facility] Comment on above: Heart Failure FU- 3 month follow-up Start: 10-06-2024 GFR test (Diabetes, CKD 3-4, OR last GFR 15-59) GFR test (Diabetes, CKD 3-4, OR last GFR 15-59) [facility] Start: 10-05-2024 End: 10-05-2024 Patient encounter procedure [facility] Part [facility] Comment on above: 6 weeks PSA, PVR 6 weeks PSA, PVR. 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) Expected: 10/04/2024, Expires: 10/04/2025 [facility] Comment on above: Expected: 10/04/2024, Expires: Start: 10-04-2024 End: 10-04-2024 Patient encounter procedure 10/04/2024 11:00 AM EDT Appointment [facility] [address] [facility] [address] [place] [address] Quincy Penn, SUNDAY [address] [facility] [address] [address] right great toe 4 week f/u [facility] Comment on above: right great toe 4 week f/u Start: 09-24-2024 Hemoglobin A1c measurement A1C test (Diabetic or Prediabetic) [facility] Start: 09-19-2024 End: 09-19-2024 Patient encounter procedure 09/19/2024 2:00 PM EDT Office Visit [facility] C[facility] Part [facility] [address] [facility] [place] [address] Lev Duarte, BOILER HOUSE MECHANIC - COLOR TECHNICIAN [address] [place] [address] 3 month/ [facility] Comment on above: 3 month/ Start: 09-14-2024 End: 09-14-2024 Patient encounter procedure 09/14/2024 12:45 PM EDT Office Visit [facility] VASCULAR Part [address] [place] [address] Floyd Vee MD [address] [place] [address] [address] [facility] [place] [address] 3mo F/U from 06/15/[address] [facility] VASCULAR Part [facility] Comment on above: 3mo F/U from 06/15/24 Start: 09-06-2024 End: 09-06-2025 XR Toes - right 2 Views [facility] Comment on above: Expected: 09/06/2024, Expires: 6 1 Occurrences starti ng 09/06/2024 until 09/06/2024 Start: 09-06-2024 End: 09-06-2024 Patient encounter procedure 09/06/2024 11:30 AM EDT Appointment [facility] [address] [place] [address] [address] [place] [address] Quincy Penn, DPM [address] [facility] [address] [place] [phone] right great toe 3 week f/u [facility] Comment on above: right great toe 3 week f/u Start: 08-26-2024 Depression Screen Depression Screen [facility] Start: 08-23-2024 Annual Wellness Visit (Medicare) Annual Wellness Visit (Medicare) [facility] Start: 08-22-2024 End: 08-22-2024 Patient encounter procedure 08/22/2024 10:45 AM EDT Office Visit [facility] UROLOGY [address] [place] [address] Arabella Dyer, PA-C [address] [place] [address] [address] [place] [address] 2-3 week follow up PVR [facility] UR[facility]Y [facility] Comment on above: 2-3 week follow up PVR Start: 08-16-2024 Annual Wellness Visit (Medicare) Annual Wellness Visit (Medicare) [facility] Start: 08-16-2024 End: 08-16-2024 Patient encounter procedure 08/16/2024 2:00 PM EDT Office Visit [facility] C[facility] [address] [place] [address] Alma Kan MD [address] [facility] [place] [address] 3 month follow up [facility] Comment on above: 3 month follow up Start: 08-16-2024 End: 08-16-2025 XR Toes - right 2 Views [facility] Comment on above: Expected: 08/16/2024, Expires: 1 Occurrences starti ng 08/16/2024 until 08/16/2024 Start: 08-08-2024 End: 08-08-2024 Patient encounter procedure 08/08/2024 1:30 PM EDT Procedure Visit [facility] [address] [place] [address] Alice Cochran DPM [address] [place] [address] [facility] Start: 08-04-2024 GFR test (Diabetes, CKD 3-4, OR last GFR 15-59) GFR test (Diabetes, CKD 3-4, OR last GFR 15-59) [facility] Start: 08-02-2024 End: 08-02-2024 Patient encounter procedure 08/02/2024 11:30 AM EDT Appointment [facility] [address] [facility] [address] [place] [phone] Quincy Penn DPM [address] [facility] [address] [facility] [place] [address] right great toe [facility] Comment on above: right great toe Start: 07-30-2024 Pneumococcal 0-64 years Vaccine (3 - PPSV23 if available, else PCV20) Pneumococcal 0-64 years Vaccine (3 - PPSV23 if available, else PCV20) [facility] Start: 07-30-2024 Pneumococcal 0-64 years Vaccine (3 - PPSV23 or PCV20) Pneumococcal 0-64 years Vaccine (3 - PPSV23 or PCV20) [facility] Start: 07-30-2024 Pneumococcal 0-64 years Vaccine (3 of 3 - PPSV23 or PCV20) Pneumococcal 0-64 years Vaccine (3 of 3 - PPSV23 or PCV20) [facility] Start: 07-28-2024 Pneumococcal 50+ years Vaccine (3 of 3 - PCV20 or PCV21) Pneumococcal 50+ years Vaccine (3 of 3 - PCV20 or PCV21) [facility] Start: 07-13-2024 End: 07-13-2024 Follow-up encounter [facility] Comment on above: Heart Failure FU- 3 month follow-up Heart Failure FU- 3 month follow-up- LEFT VM REMINDING OF APPT 07/12/24 CO Start: 07-12-2024 End: 07-12-2024 Patient encounter procedure 07/12/2024 10:30 AM EST Appointment [facility] [address] [place] [address] [address] [place] [address] Quincy Penn DPM [address] [place] [address] [address] [address] bilateral lower legs [facility] Comment on above: bilateral lower legs Start: 06-30-2024 GFR test (Diabetes, CKD 3-4, OR last GFR 15-59) GFR test (Diabetes, CKD 3-4, OR last GFR 15-59) [facility] Start: 06-15-2024 End: 06-15-2024 Patient encounter procedure 06/15/2024 1:00 PM EST Office Visit [facility] V[facility] Part of [address] [place] [address] Floyd Vee MD [address] [place] [address] [address] [place] [phone] Critical Limb Ischemia BLE; 3 mth follow up with vascular duplex [facility] Comment on above: Critical Limb Ischemia BLE; 3 mth follow up with vascular duplex Start: 05-26-2024 End: 05-26-2024 Patient encounter [facility] Comment on above: Arrived Start: 05-06-2024 End: 05-06-2024 Patient encounter procedure 05/06/2024 11:20 AM EST Office Visit [facility] [address] [place] [address] Alma Kan MD [address] [place] [address] [address] [facility] Comment on above: 6 week Start: 04-25-2024 End: 04-25-2024 Patient encounter procedure 04/25/2024 1:00 PM EST Appointment [facility] [address] [place] [address] [phone] Floyd Vee MD [address] [facility] [address] [place] [address] EPIC* SCHED W PT SPOUSE [facility] Comment on above: EPIC* SCHED W PT SPOUSE Start: 04-19-2024 End: 04-19-2024 Patient encounter procedure 04/19/2024 2:15 PM EST Procedure Visit [facility] [address] [place] [phone] Alice Cochran, DPBettina [address] [place] [address] [facility] Start: 04-13-2024 End: 04-13-2024 ambulatory 04/13/2024 11:00 AM EST Pharmacy Visit [facility] [address] [place] [address] Heart Failure FU [facility] Comment on above: Heart Failure FU Start: 04-05-2024 End: 04-05-2024 ambulatory 04/05/2024 11:00 AM EST Pharmacy Visit [facility] [address] [place] [phone] Heart Failure FU [facility] Comment on above: Heart Failure FU Start: 03-23-2024 End: 03-23-2024 Patient encounter procedure 03/23/2024 1:45 PM EDT Office Visit [facility] [address] [place] [phone] Alice Cochran, DPM [address] [place] [address] [facility] Start: 03-16-2024 End: 03-16-2024 Patient encounter procedure 03/16/2024 11:45 AM EDT Office Visit [facility] Part [address] [place] [address] Floyd Vee MD [address] [place] [address] [address] [place] [address] 4 weeks f/u IR [facility] Part [facility] Comment on above: 4 weeks f/u IR Start: 03-15-2024 End: 03-15-2024 Patient encounter procedure 03/15/2024 11:20 AM EDT Office Visit [facility] [address] [address] Alma Kan MD [address] [place] [address] [place] [address] [address] [facility] Part [facility] Comment on above: 3 month Start: 03-08-2024 End: 03-08-2024 Admission to same day surgery center 03/08/2024 8:30 AM EDT - 03/08/2024 9:30 AM EDT Surgery [facility] Cardiac Cath/IR Lab [address] [place], [place] [phone] Floyd Vee MD [address] [place] [address] [address] [place] [address] Angiography lower ext bilat [facility] Comment on above: Angiography lower ext bilat Start: 03-08-2024 Subsequent hospital visit by physician 03/08/2024 8:30 AM EDT Hospital Encounter [facility] Cardiac Cath/IR Lab [address] [place] [address] Floyd Vee MD [address] [place] [address] Critical limb ischemia of both lower extremities (HCC) [facility]iac [facility]/IR [facility] Comment on above: Critical limb ischemia of both lower ext remities (HCC) Start: 02-24-2024 End: 02-24-2024 ambulatory 02/24/2024 11:00 AM EDT [facility] [address] [place] [address] Heart Failure FU started metolazone 3x wk [facility] Comment on above: Heart Failure FU started metolazone 3x w k Start: 02-24-2024 End: 02-24-2024 Patient encounter procedure 02/24/2024 10:00 AM EDT Appointment [facility] [address] [place] [address] MEDIA - JARAD W/ PT [facility] Comment on above: MEDIA - JARAD W/ PT Start: 02-17-2024 End: 02-17-2024 Admission to same day surgery center 02/17/2024 3:00 PM EDT - 02/17/2024 4:00 PM EDT Surgery [facility] Cardiac Cath/EP Lab [facility] [place] [address] [place] [address] [facility] [address] [place] [address] simon / Percutaneous coronary intervention *arrive @ 0930 hydration* [facility] Cardiac Cath/EP Lab Comment on above: simon / Percutaneous coronary interventi on *arrive @ 0930 hydration* Start: 02-17-2024 Subsequent hospital visit by physician 02/17/2024 3:00 PM EDT Hospital Encounter [facility] Cardiac Cath/EP Lab [address] [place] [address] [place] [address] [place], [place] [id number] CAD (coronary artery disease) [facility] Cardiac Cath/EP Lab Comment on above: CAD (coronary artery disease) Start: 02-17-2024 End: 02-17-2024 Patient encounter procedure 02/17/2024 9:45 AM EDT Office Visit [facility] [address] [place] [phone] Alice Cochran DPM [address] [place], [place] [phone] Arrived [facility] Comment on above: Arrived Start: 02-15-2024 End: 02-15-2024 Patient encounter procedure 02/15/2024 10:45 AM EDT Office Visit [address] [place] [address] Floyd Vee MD [address] [place] [address] PVD (peripheral vascular disease) with claudication ([facility]) [facility] Comment on above: PVD (peripheral vascular disease) with c laudication ([facility]) Start: 02-15-2024 End: 02-15-2024 Patient encounter procedure 02/15/2024 9:30 AM EDT Office Visit [facility] [address] [place] [phone] Alice Cochran DPM [address] [place], [place] [phone] [facility] Start: 02-09-2024 End: 02-09-2024 Patient encounter procedure 02/09/2024 1:00 PM EDT Appointment [facility] [address] [place] [phone] 2 month FU [facility] Comment on above: 2 month FU Start: 02-03-2024 End: 02-03-2024 Patient encounter procedure 02/03/2024 10:40 AM EDT Office Visit [facility] C[facility] Part [address] [place] [phone] Alma Kan MD [address] [place] [address] [place] [address] [facility] Comment on above: 3 month Start: 01-24-2024 COVID-19 Vaccine ( season) COVID-19 Vaccine ( season) [facility] Start: 01-24-2024 COVID-19 Vaccine ( season) COVID-19 Vaccine ( season) [facility] Start: 12-24-2023 Influenza vaccination [facility] Start: 12-23-2023 End: 12-23-2023 Patient encounter procedure 12/23/2023 9:30 AM EDT Initial consult [facility] [address] [facility] [address] [place] [phone] Adrian Delgadillo MD [address] [facility] [address] [place] [address] Correa for [facility] Cardiothoracic Surgical [facility] Comment on above: From Dr. Correa for MVD Start: 12-21-2023 End: 12-21-2023 Admission to same day surgery center 12/21/2023 12:00 PM EDT - 12/21/2023 1:00 PM EDT Surgery [facility] Cardiac Cath/IR Lab [address] [place] [address] [place] [address] [place] [address] Left heart cath / coronary angiography [facility] Cardiac Cath/IR Lab Comment on above: Left heart cath / coronary angiography Start: 12-21-2023 Subsequent hospital visit by physician 12/21/2023 12:00 PM EDT Hospital Encounter [facility] Cardiac Cath/IR Lab [address] [address] [facility] [place] [address] [place] [address] [place] [address] Abnormal stress test; Chest pain; CAD (coronary artery disease) [facility] Cardiac Cath/IR Lab Comment on above: Abnormal stress test; Chest pain; CAD (coronary artery disease) Start: 12-09-2023 End: 12-09-2023 Patient encounter procedure [facility] Comment on above: CHF-NEW, coming after PT Start: 12-07-2023 End: 12-07-2023 Patient encounter procedure 12/07/2023 2:45 PM EDT Appointment [facility] Physical Therapy [address] [place] [address] [phone] Yumiko Montes PTA [facility] Physical Therapy Start: 12-06-2023 GFR test (Diabetes, CKD 3-4, OR last GFR 15-59) GFR test (Diabetes, CKD 3-4, OR last GFR 15-59) [facility] Start: 12-06-2023 Hemoglobin A1c measurement A1C test (Diabetic or Prediabetic) [facility] Start: 12-06-2023 Urine screening for protein Diabetic Alb to Cr ratio (uACR) test [facility] Start: 11-24-2023 End: 11-24-2023 Patient encounter procedure 11/24/2023 3:00 PM EDT Office Visit [facility] [address] [place] [address] Alma Kan MD [address] [place] [address] [place] [phone] ED follow up/1-2 weeks per Lucius [facility] Comment on above: ED follow up/1-2 weeks per Lucius Start: 11-20-2023 End: 11-20-2023 Patient encounter procedure 11/20/2023 1:00 PM EDT Appointment [facility] [address] [place] [phone] Rashel Cárdenas, PT [facility] Comment on above: [facility] Start: 11-17-2023 End: 11-17-2023 Patient encounter procedure 11/17/2023 10:45 AM EDT Appointment [facility] [address] [place] [phone] Yumiko Montes COOKING CHEF [facility] Start: 11-11-2023 End: 11-11-2023 Patient encounter procedure 11/11/2023 2:45 PM EDT Appointment [facility] [address] [place] [phone] Yumiko Montes, COOKING [employer]F [facility] Start: 11-11-2023 End: 11-11-2023 Patient encounter procedure 11/11/2023 10:30 AM EDT Appointment [facility] [address] [place] [address] Yumiko Montes [employer]OOK[employer] [facility] Start: 11-09-2023 End: 11-09-2023 Patient encounter procedure 11/09/2023 2:45 PM EDT Appointment [facility] [address] [place] [phone] Yumiko Montes [employer] [facility] Start: 11-06-2023 End: 11-06-2023 Patient encounter procedure 11/06/2023 12:15 PM EDT Appointment [facility] [address] [place] [address] Huang Urbina, PT 30 day followup [facility] Comment on above: 30 day followup Start: 11-06-2023 Subsequent hospital visit by physician 11/06/2023 12:15 PM EDT Hospital Encounter [facility] Physical Therapy [address] [place] [phone] Yumiko Montes PTA [facility] Physical Therapy Start: 11-03-2023 End: 11-03-2023 Patient encounter procedure 11/03/2023 10:45 AM EDT Appointment [facility] Physical Therapy [address] [place] [phone] Yumiko Montes PTA [facility] Physical Therapy Start: 11-03-2023 End: 11-03-2023 Laser vaporization of prostate for urine flow CYSTOSCOPY TRANSURETHRAL RESECTION 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 11/03/2023 8:30 AM EDT [facility] Start: 10-29-2023 End: 10-29-2023 Patient encounter procedure 10/29/2023 9:15 AM EDT Appointment [facility] Physical Therapy [address] [place] [phone] Yumiko Montes PTA [facility] Physical Therapy Start: 10-27-2023 End: 10-27-2023 Patient encounter procedure 10/27/2023 10:30 AM EDT Appointment [facility] Physical Therapy [address] [place] [phone] Yumiko Montes PTA [facility] Physical Therapy Start: 10-26-2023 End: 10-26-2023 Patient encounter procedure 10/26/2023 11:15 AM EDT Procedure visit [facility] UROLOGY [address] [place] [address] Akira Ferrer MD [address] [place] [address], [address] [place] [address] [facility] Comment [facility] above: cysto Start: 10-16-2023 GFR test (Diabetes, CKD 3-4, OR last GFR 15-59) GFR test (Diabetes, CKD 3-4, OR last GFR 15-59) [facility] Start: 10-16-2023 Lipid panel Lipids [facility] Start: 10-01-2023 End: 10-01-2023 Patient encounter procedure 10/01/2023 11:00 AM EDT Office Visit [facility] [address] [place] [address] Nancy Roe, [employer] MECH[employer]IC - COLOR TECHNICIAN [address] [place] [address] [address] [place] [address] 8wk F/U Labs prior PVR [facility] Comment on above: 8wk F/U Labs prior PVR Start: 09-17-2023 End: 09-17-2023 Patient encounter procedure 09/17/2023 1:40 PM EDT Office Visit [facility] [address] [place] [address] Alma Kan MD [address] [place] [address] [place] [phone] [address] [facility] Comment on above: 6 month Start: 08-05-2023 End: 08-05-2023 Patient encounter procedure 08/05/2023 11:30 AM EDT Office Visit [address] [place] [address] Arabella [place], PA-C [address] [place] [address] Dr [address] [place] [address] 3 month f/u, PVR [facility] Comment on above: 3 month f/u, PVR Start: 05-13-2023 GFR test (Diabetes, CKD 3-4, OR last GFR 15-59) GFR test (Diabetes, CKD 3-4, OR last GFR 15-59) [facility] Start: 03-04-2023 End: 03-04-2023 Patient encounter procedure 03/04/2023 Office Visit Cardiology Alma Kan MD [address] [place] [address] [place] [address] [facility] Start: 02-05-2023 End: 02-05-2023 Patient encounter procedure 02/05/2023 Office Visit Urology [facility] Start: 01-28-2023 End: 01-28-2023 Patient encounter procedure 01/28/2023 Appointment Radiology [facility] MRI Start: 01-27-2023 End: 01-27-2023 Patient encounter procedure 01/27/2023 Appointment Radiology [facility] MRI Start: 01-01-2023 End: 01-01-2023 Patient encounter procedure 01/01/2023 Office Visit Cardiology Alma Kan MD [address] [place] [address] [facility] Start: 12-23-2022 Influenza vaccination [facility] Start: 12-22-2022 End: 12-22-2022 Patient encounter procedure 12/22/2022 [facility] Start: 12-18-2022 End: 12-18-2022 Patient encounter procedure 12/18/2022 Appointment Physical Therapy Rashel Cárdenas PT [facility] Start: 12-17-2022 End: 12-17-2022 Patient encounter procedure 12/17/2022 Appointment Physical Therapy Shirin Bajwa PTA [facility] Start: 12-15-2022 End: 12-15-2022 Patient encounter procedure 12/15/2022 Appointment Radiology [facility] CT Scan Start: 12-11-2022 End: 12-11-2022 Patient encounter procedure 12/11/2022 Appointment Physical Therapy Rashel Cárdenas PT [facility] Start: 12-08-2022 End: 12-08-2022 Patient encounter procedure 12/08/2022 Appointment Physical Therapy Shirin Bajwa PTA [facility] Start: 12-03-2022 End: 12-03-2022 Patient encounter procedure 12/03/2022 Appointment Physical Therapy Shirin Bajwa [employer] [facility] Start: 12-02-2022 End: 12-02-2022 Patient encounter procedure [facility] Start: 11-20-2022 End: 11-20-2022 Patient encounter procedure 11/20/2022 Appointment Physical Therapy Rashel Cárdenas, PT [facility] Start: 11-18-2022 End: 11-18-2022 Patient encounter procedure 11/18/2022 Appointment Physical Therapy Abby Quintero, PT [facility] Start: 11-14-2022 End: 11-14-2022 Patient encounter procedure 11/14/2022 Appointment Physical Therapy Sharonda Gonzalez, [employer] [facility] Start: 11-07-2022 End: 11-07-2022 Patient encounter procedure [facility] Start: 11-06-2022 [facility] Start: 11-05-2022 End: 11-05-2022 Patient encounter procedure 11/05/2022 Office Visit Urology [facility] Start: 11-03-2022 End: 11-03-2022 Patient encounter procedure 11/03/2022 Appointment Physical Therapy Shirin Bajwa [employer] [facility] Start: 10-31-2022 End: 10-31-2022 Patient encounter procedure 10/31/2022 Appointment Physical Therapy Shirin Bajwa, [employer] [facility] Start: 10-27-2022 End: 10-27-2022 Patient encounter procedure 10/27/2022 Appointment Physical Therapy Shirin Bajwa [employer] [facility] Start: 10-24-2022 End: 10-24-2022 Patient encounter procedure 10/24/2022 Appointment Physical Therapy Chris [place], PT [facility] Start: 10-22-2022 End: 10-22-2022 Patient encounter procedure 10/22/2022 Appointment Physical Therapy Shirin Bajwa [employer] [facility] Start: 10-17-2022 End: 10-17-2022 Patient encounter procedure 10/17/2022 Appointment Physical Therapy Shirin Bajwa [employer] [facility] Start: 10-16-2022 End: 10-16-2022 Patient encounter procedure 10/16/2022 Office Visit Cardiology Alma Kan MD [address] [place] [address] [facility] Start: 10-15-2022 End: 10-15-2022 Patient encounter procedure 10/15/2022 Office Visit Cardiology Alma Kan MD [address] [place] [address] [facility] Start: 10-13-2022 End: 10-13-2022 Patient encounter procedure 10/13/2022 Appointment Physical Therapy Shirin Bajwa [employer] [facility] Start: 10-09-2022 End: 10-09-2022 Patient encounter procedure 10/09/2022 Appointment Physical Therapy Chris Sauceda, PT [facility] Start: 10-03-2022 End: 10-03-2022 Patient encounter procedure 10/03/2022 Appointment Physical Therapy Shirin Bajwa [employer] [facility] Start: 09-29-2022 End: 09-29-2022 Patient encounter procedure 09/29/2022 Appointment Physical Therapy Shirin Bajwa [employer] [facility] Start: 09-26-2022 End: 09-26-2022 Patient encounter procedure 09/26/2022 Appointment Physical Therapy Shirin Bajwa [employer] [facility] Start: 09-22-2022 End: 09-22-2022 Patient encounter procedure 09/22/2022 Appointment Physical Therapy Shirin Bajwa [employer] [facility] Start: 09-19-2022 End: 09-19-2022 Patient encounter procedure 09/19/2022 Appointment Physical Therapy Rashel Cárdenas PT [facility] Start: 09-15-2022 End: 09-15-2022 Patient encounter procedure 09/15/2022 Appointment Physical Therapy Shirin Bajwa [employer] [facility] Start: 09-12-2022 End: 09-12-2022 Patient encounter procedure 09/12/2022 Appointment Physical Therapy Shirin Bajwa [employer] [facility] Start: 09-09-2022 End: 09-09-2022 Patient encounter procedure 09/09/2022 Appointment Physical Therapy Chris Sauceda, PT [facility] Start: 09-09-2022 Creatinine measurement Creatinine [facility] Start: 09-09-2022 Potassium [Moles/volume] in Serum or Plasma Potassium [facility] Start: 09-08-2022 End: 09-08-2022 Patient encounter procedure 09/08/2022 Appointment Physical Therapy Shirin Bajwa PTA [facility] Start: 09-05-2022 End: 09-05-2022 Patient encounter procedure 09/05/2022 Appointment Physical Therapy Chris [place], PT [facility] Start: 09-02-2022 End: 09-02-2022 Patient encounter procedure 09/02/2022 Office Visit Urology [facility] UR[facility] Start: 09-01-2022 End: 09-01-2022 Patient encounter procedure 09/01/2022 Appointment Physical Therapy Shirin Bajwa PTA [facility] Start: 08-29-2022 End: 08-29-2022 Patient encounter procedure 08/29/2022 Appointment Physical Therapy Shirin Bajwa, C[employer] [facility] Start: 08-25-2022 End: 08-25-2022 Patient encounter procedure 08/25/2022 Appointment Physical Therapy Chris [place]ced[place], PT [facility] Start: 07-17-2022 End: 07-17-2022 Patient encounter procedure [facility] [facility] Start: 07-15-2022 End: 07-15-2022 Admission to same day surgery center 07/15/2022 Surgery IP Unit Akira Ferrer MD [address] [place] [address], [address] [place] [address] CYSTOSCOPY TRANSURETHRAL RESECTION PROSTATE LASER-PVP GREENLIGHT [facility] Comment on above: CYSTOSCOPY TRANSURETHRAL RESECTION PROST ATE LASER-PVP GREENLIGHT Start: 07-15-2022 End: 07-15-2022 Laser vaporization of prostate for urine flow [facility] Start: 07-15-2022 Subsequent hospital visit by physician 07/15/2022 Hospital Encounter IP Unit Akira Ferrer MD [address] [facility], [address] [place], [place] [id number] [facility] Start: 07-15-2022 End: 07-15-2022 Admission to same day surgery center 07/15/2022 Surgery IP Unit Akira Ferrer MD [address] [facility], [address] [place], [place] [id number] CYSTOSCOPY TRANSURETHRAL RESECTION PROSTATE LASER-PVP GREENLIGHT [facility] Comment on above: CYSTOSCOPY TRANSURETHRAL RESECTION PROST ATE LASER-PVP GREEN[facility]IGHT Start: 07-15-2022 End: 07-15-2022 Laser vaporization of prostate for urine flow CYSTOSCOPY TRANSURETHRAL RESECTION PROSTATE LASER Enlarged prostate with urinary obstruction 07/15/2022 11:05 AM EST [facility] Start: 07-15-2022 Subsequent hospital visit by physician 07/15/2022 Hospital Encounter IP Unit Akira Ferrer MD [address] [facility], [address] [place], [place] [id number] [facility] Start: 07-14-2022 End: 07-14-2022 Patient encounter procedure 07/14/2022 Appointment Stress Lab [facility] Start: 07-04-2022 End: 07-04-2022 Patient encounter procedure 07/04/2022 Office Visit Cardiology Alma Kan MD [address] [place] [address] [place] [phone] [facility] Start: 06-06-2022 Hemoglobin A1c measurement A1C test (Diabetic or Prediabetic) [facility] Start: 06-01-2022 Creatinine measurement Creatinine monitoring [facility] Start: 06-01-2022 Potassium monitoring Potassium monitoring [facility] Start: 05-30-2022 End: 05-30-2022 Patient encounter procedure 05/30/2022 Procedure visit Urology [facility] UROLOG[facility] Start: 05-29-2022 Lipid panel [facility] Start: 05-27-2022 Hemoglobin A1c measurement A1C test (Diabetic or Prediabetic) [facility] Start: 05-23-2022 End: 05-23-2022 Patient encounter procedure 05/23/2022 Appointment Physical Therapy Huang Urbina, PT [facility] Start: 05-22-2022 End: 05-22-2022 Patient encounter procedure 05/22/2022 Appointment Physical Therapy Huang Urbina, PT [facility] Start: 05-15-2022 End: 05-15-2022 Patient encounter procedure 05/15/2022 Appointment Physical Therapy Huang Urbina, PT [facility] Start: 05-13-2022 End: 05-13-2022 Patient encounter procedure 05/13/2022 Office Visit Urology [facility] UROLOG[facility] Start: 05-12-2022 End: 05-12-2022 Patient encounter procedure 05/12/2022 Appointment Physical Therapy Huang Urbina, PT [facility] Start: 05-06-2022 End: 05-06-2022 Patient encounter procedure 05/06/2022 Appointment Physical Therapy Huang Urbina, PT [facility] Start: 04-11-2022 End: 04-11-2022 Patient encounter procedure 04/11/2022 Appointment Physical Therapy Doc Agrawal, COOKING CHEF [facility] Start: 04-09-2022 End: 04-09-2022 Patient encounter procedure 04/09/2022 Appointment Physical Therapy Chris Sauceda, PT [facility] Start: 04-04-2022 End: 04-04-2022 Patient encounter procedure 04/04/2022 Office Visit Cardiology Alma Kan MD [address] [place] [address] [place] [id number] [facility] Start: 04-02-2022 End: 04-02-2022 Patient encounter procedure 04/02/2022 Appointment Physical Therapy Doc Agrawal, COOKING CHEF [facility] Start: 03-31-2022 End: 03-31-2022 Patient encounter procedure 03/31/2022 Appointment Physical Therapy Chris Sauceda, PT [facility] Start: 03-26-2022 End: 03-26-2022 Patient encounter procedure 03/26/2022 Appointment Physical Therapy Rashel Cárdenas, PT [facility] Start: 03-24-2022 End: 03-24-2022 Patient encounter procedure 03/24/2022 Appointment Physical Therapy Huang Urbina PT [facility] Start: 03-20-2022 End: 03-20-2022 Patient encounter procedure [facility] Start: 03-18-2022 End: 03-18-2022 Patient encounter procedure 03/18/2022 Appointment Physical Therapy Chris Sauceda, PT [facility] Start: 03-18-2022 End: 03-18-2022 Patient encounter procedure [facility] Start: 03-14-2022 End: 03-14-2022 Patient encounter procedure 03/14/2022 Appointment Physical Therapy Yumiko Montes, COOK[employer]F [facility] Start: 03-06-2022 End: 03-06-2022 Patient encounter procedure 03/06/2022 Appointment Physical Therapy Rashel Cárdenas, PT [facility] Start: 03-03-2022 End: 03-03-2022 Patient encounter procedure 03/03/2022 Appointment Physical Therapy Yumiko Montes, COOKING CHEF [facility] Start: 02-20-2022 End: 02-20-2022 Patient encounter procedure 02/20/2022 Appointment Physical Therapy Rashel Cárdenas, PT [facility] Start: 02-18-2022 End: 02-18-2022 Patient encounter procedure [facility] Start: 02-14-2022 End: 02-14-2022 Patient encounter procedure 02/14/2022 Appointment Physical Therapy Huang Urbina, PT [facility] Start: 02-07-2022 End: 02-07-2022 Patient encounter procedure 02/07/2022 Appointment Physical Therapy Yumiko Montes, COOKING [employer]F [facility] Start: 02-06-2022 End: 02-06-2022 Patient encounter procedure 02/06/2022 Appointment Physical Therapy Rashel Cárdenas, PT [facility] Start: 01-31-2022 End: 01-31-2022 Patient encounter procedure [facility] Start: 01-30-2022 End: 01-30-2022 Patient encounter procedure [facility] Start: 01-28-2022 End: 01-28-2022 Patient encounter procedure 01/28/2022 Appointment Physical Therapy Rashel Cárdenas, PT [facility] Physical Therapy Start: 01-27-2022 End: 01-27-2022 Patient encounter procedure 01/27/2022 Appointment Cardiac Rehabilitation [facility] Cardiac Rehab Start: 01-24-2022 End: 01-24-2022 Patient encounter procedure 01/24/2022 Appointment Physical Therapy Rashel Cárdenas, PT [facility] Physical Therapy Start: 01-23-2022 Influenza vaccination [facility] Start: 01-23-2022 End: 01-23-2022 Patient encounter procedure [facility] Start: 01-21-2022 End: 01-21-2022 Patient encounter procedure 01/21/2022 Appointment Physical Therapy Doc Agrawal PTA [facility] Physical Therapy Start: 01-20-2022 End: 01-20-2022 Patient encounter procedure 01/20/2022 Appointment Cardiac Rehabilitation [facility] Card[facility] Start: 01-16-2022 End: 01-16-2022 Patient encounter procedure [facility] Start: 01-14-2022 End: 01-14-2022 Patient encounter procedure 01/14/2022 Appointment Physical Therapy Colton Lim [facility] Physical Therapy Start: 01-13-2022 End: 01-13-2022 Patient encounter procedure 01/13/2022 Appointment Cardiac Rehabilitation [facility] Cardiac Rehab Start: 01-10-2022 End: 01-10-2022 Patient encounter procedure 01/10/2022 Appointment Physical Therapy Doc Agrawal PTA [facility] Physical Therapy Start: 01-09-2022 End: 01-09-2022 Patient encounter procedure 01/09/2022 Appointment Cardiac Rehabilitation [facility] Card[facility] Start: 01-08-2022 End: 01-08-2022 Patient encounter procedure 01/08/2022 Appointment Physical Therapy Doc Agrawal PTA [facility] Physical Therapy Start: 01-06-2022 End: 01-06-2022 Patient encounter procedure [facility] Card[facility] Start: 01-03-2022 End: 01-03-2022 Patient encounter procedure 01/03/2022 Appointment Physical Therapy Doc Agrawal PTA [facility] Physical Therapy Start: 01-02-2022 End: 01-02-2022 Patient encounter procedure [facility]OLOG[facility] Start: 01-01-2022 End: 01-01-2022 Patient encounter procedure 01/01/2022 Appointment Physical Therapy Doc Agrawal PTA [facility] Physical Therapy Start: 12-30-2021 End: 12-30-2021 Patient encounter procedure [facility] Card[facility] Start: 12-27-2021 End: 12-27-2021 Patient encounter procedure 12/27/2021 Appointment Physical Therapy Rashel Cárdenas, PT [facility] Physical Therapy Start: 12-26-2021 End: 12-26-2021 Patient encounter procedure [facility] Card[facility] Re[facility] Start: 12-24-2021 End: 12-24-2021 Patient encounter procedure 12/24/2021 Appointment Physical Therapy Colton Lim [facility] Physical Therapy Start: 12-23-2021 Influenza vaccination Flu vaccine (#1) [facility] Start: 12-23-2021 End: 12-23-2021 Patient encounter procedure 12/23/2021 Appointment Cardiac Rehabilitation [facility] Cardiac Rehab Start: 12-20-2021 End: 12-20-2021 Patient encounter procedure 12/20/2021 Appointment Physical Therapy Rashel Cárdenas, PT [facility] Physical Therapy Start: 12-19-2021 End: 12-19-2021 Patient encounter procedure 12/19/2021 Appointment Cardiac Rehabilitation [facility] Card[facility] Re[facility] Start: 12-18-2021 Subsequent hospital visit by physician 12/18/2021 Hospital Encounter Physical Therapy Doc Agrawal PTA [facility] Physical Therapy Start: 12-18-2021 End: 12-18-2021 Patient encounter procedure 12/18/2021 Appointment Cardiac Rehabilitation [facility] Card[facility] Rehab Start: 12-16-2021 End: 12-16-2021 Patient encounter procedure 12/16/2021 Appointment Cardiac Rehabilitation [facility] Card[facility] Rehab Start: 12-12-2021 End: 12-12-2021 Patient encounter procedure 12/12/2021 Appointment Cardiac Rehabilitation [facility] Card[facility] Start: 12-11-2021 End: 12-11-2021 Patient encounter procedure 12/11/2021 Appointment Cardiac Rehabilitation [facility] Start: 12-09-2021 End: 12-09-2021 Patient encounter procedure 12/09/2021 Appointment Cardiac Rehabilitation [facility] Card[facility] Rehab Start: 12-05-2021 End: 12-05-2021 Patient encounter procedure 12/05/2021 Appointment Cardiac Rehabilitation [facility] Card[facility] Rehab Start: 12-04-2021 End: 12-04-2021 Patient encounter procedure 12/04/2021 Appointment Cardiac Rehabilitation [facility] Card[facility] Rehab Start: 12-02-2021 End: 12-02-2021 Patient encounter procedure 12/02/2021 Appointment Cardiac Rehabilitation [facility] Card[facility] Rehab Start: 11-28-2021 End: 11-28-2021 Patient encounter procedure 11/28/2021 Appointment Cardiac Rehabilitation [facility] Card[facility] Rehab Start: 11-25-2021 End: 11-25-2021 Patient encounter procedure 11/25/2021 Appointment Cardiac Rehabilitation [facility] Card[facility] Rehab Start: 11-21-2021 End: 11-21-2021 Patient encounter procedure 11/21/2021 Appointment Cardiac Rehabilitation [facility] Card[facility] Rehab Start: 11-18-2021 End: 11-18-2021 Patient encounter procedure 11/18/2021 Appointment Cardiac Rehabilitation [facility] Card[facility] Rehab Start: 11-14-2021 End: 11-14-2021 Patient encounter procedure 11/14/2021 Appointment Cardiac Rehabilitation [facility] Card[facility] Rehab Start: 11-11-2021 End: 11-11-2021 Patient encounter procedure 11/11/2021 Appointment Cardiac Rehabilitation [facility] Start: 11-07-2021 End: 11-07-2021 Patient encounter procedure 11/07/2021 Appointment Cardiac Rehabilitation [facility] Start: 11-04-2021 End: 11-04-2021 Patient encounter procedure 11/04/2021 Appointment Cardiac Rehabilitation [facility] Card[facility] Rehab Start: 10-31-2021 End: 10-31-2021 Patient encounter procedure 10/31/2021 Appointment Cardiac Rehabilitation [facility] Card[facility] Rehab Start: 10-28-2021 End: 10-28-2021 Patient encounter procedure 10/28/2021 Appointment Cardiac Rehabilitation [facility] Card[facility] Rehab Start: 10-24-2021 End: 10-24-2021 Patient encounter procedure 10/24/2021 Appointment Cardiac Rehabilitation [facility] Start: 10-21-2021 End: 10-21-2021 Patient encounter procedure 10/21/2021 Appointment Cardiac Rehabilitation [facility] Card[facility] Rehab Start: 10-17-2021 End: 10-17-2021 Patient encounter procedure 10/17/2021 Appointment Cardiac Rehabilitation [facility] Card[facility] Rehab Start: 10-14-2021 End: 10-14-2021 Patient encounter procedure 10/14/2021 Appointment Cardiac Rehabilitation [facility] Card[facility] Rehab Start: 10-10-2021 End: 10-10-2021 Patient encounter procedure 10/10/2021 Appointment Cardiac Rehabilitation [facility] Card[facility] Re[facility] Start: 10-09-2021 End: 10-09-2021 Patient encounter procedure 10/09/2021 Appointment Cardiac Rehabilitation [facility] Card[facility] Rehab Start: 10-07-2021 End: 10-07-2021 Patient encounter procedure 10/07/2021 Appointment Cardiac Rehabilitation [facility] Card[facility] Rehab Start: 10-03-2021 End: 10-03-2021 Patient encounter procedure 10/03/2021 Appointment Cardiac Rehabilitation [facility] Card[facility] Re[facility] Start: 09-30-2021 End: 09-30-2021 Patient encounter procedure 09/30/2021 Appointment Cardiac Rehabilitation [facility] Card[facility] Rehab Start: 09-27-2021 End: 09-27-2021 Patient encounter procedure 09/27/2021 Office Visit Cardiology Alma Kan MD [address] [place] [address] [facility] CARDIOLOG[facility] Start: 09-16-2021 End: 09-16-2021 Patient encounter procedure 09/16/2021 Office Visit Urology Akira Ferrer MD [address], [address] [place] [address] [facility] UROLOG[facility] Start: 08-15-2021 Prostate specific antigen measurement Prostate Specific Antigen (PSA) Screening or Monitoring [facility] Start: 06-03-2021 End: 06-03-2021 Patient encounter procedure 06/03/2021 Appointment IP Unit [facility] Start: 05-01-2021 End: 05-01-2021 Patient encounter procedure 05/01/2021 Appointment Stress Lab [facility] Stress [facility] Start: 04-30-2021 End: 04-30-2021 Patient encounter procedure [facility] Start: 01-23-2021 Influenza vaccination Flu vaccine (#1) [employer] Start: 08-22-2020 End: 08-22-2020 Office Visit 08/22/2020 Office Visit Urology Akira Ferrer MD [address] [facility], [address] [place], [place] [phone] [facility] Start: 07-26-2020 End: 07-26-2020 Office Visit 07/26/2020 Office Visit Endocrinology Octavio Lozada MD [address] [place] [address] [facility] Start: 01-24-2020 Influenza vaccination Flu vaccine (#1) [employer] Phone: Start: 2019 Respiratory Syncytial Virus (RSV) or age 60 yrs+ (1 - 1-dose 60+ series) Respiratory Syncytial Virus (RSV) or age 60 yrs+ (1 - 1-dose 60+ series) [facility] [employer] Start: 2019 Respiratory Syncytial Virus (RSV) or age 60 yrs+ (1 - Risk 60-74 years 1-dose series) Respiratory Syncytial Virus (RSV) or age 60 yrs+ (1 - Risk 60-74 years 1-dose series) [facility] [employer] Start: 07-30-2009 Screening for malignant neoplasm of colon Colon cancer screen colonoscopy [employer] Phone: Start: 07-30-2009 Shingles Vaccine (1 of 2) Shingles Vaccine (1 of 2) [employer] Start: 07-30-2004 Screening for malignant neoplasm of colon [employer] Start: 1999 Diabetes screen Diabetes screen [employer] Phone: Start: 07-30-1978 DTaP/Tdap/Td vaccine (1 - Tdap) DTaP/Tdap/Td vaccine (1 - Tdap) [employer] Start: 07-30-1977 Diabetic microalbuminuria test Diabetic microalbuminuria test [employer] Start: 07-30-1977 Diabetic retinal exam Diabetic retinal exam [facility] Start: 07-30-1977 Glaucoma screening Diabetic retinal exam [facility] Start: 07-30-1977 Hepatitis C screening Hepatitis C screen [facility] Start: 07-30-1977 Urine screening for protein [facility] Start: 07-30-1974 HIV screening HIV screen [facility] Start: 1971 COVID-19 Vaccine (1) COVID-19 Vaccine (1) [facility] Start: 1971 Depression Screen Depression Screen [facility] Start: 07-30-1969 Diabetic foot examination Diabetic foot exam [facility] Start: 07-30-1969 Diabetic retinal exam Diabetic retinal exam [facility] Start: 07-30-1969 Hemoglobin A1c measurement A1C test (Diabetic or Prediabetic) [facility] Start: 07-30-1969 Lipid panel Lipid screen [facility] Start: 07-30-1965 Pneumococcal 0-64 years Vaccine (1 - PCV) Pneumococcal 0-64 years Vaccine (1 - PCV) [facility] Start: 07-30-1965 Pneumococcal 0-64 years Vaccine (1 of 2 - PCV) Pneumococcal 0-64 years Vaccine (1 of 2 - PCV) [facility] Start: 07-30-1965 Pneumococcal 0-64 years Vaccine (1 of 2 - PPSV23) Pneumococcal 0-64 years Vaccine (1 of 2 - PPSV23) [facility] Start: 07-30-1964 COVID-19 Vaccine (1) COVID-19 Vaccine (1) [facility] Start: 01-31-1960 COVID-19 Vaccine (#1) COVID-19 Vaccine (#1) [facility] [employer] Start: 1959 Creatinine measurement Creatinine monitoring [facility] Start: 1959 Hepatitis C screening Hepatitis C screen [facility] Start: 1959 Potassium monitoring Potassium monitoring [facility] [employer] Adult NIV/Positive A irway Pressure Adult NIV/Positive Airway Pressure Respiratory Care Routine Every 4hr until discontinued starting 02/25/2024 [facility] [employer] Comment on above: Every 4hr until discontinued starting End: 05-24-2022 [facility] [employer] [facility] [employer] Work Phone: Comment on above: Once for 1 Occurrences starting 05/24/20 until 05/24/2022 End: 04-24-2021 Baseline Diagnostic Sleep Study Baseline Diagnostic Sleep Study Sleep Center Routine One Time for 1 Occurrences starting 04/24/2021 until 04/24/2021 [employer]: Comment on above: One Time for 1 Occurrences starting 05/2020 until 04/24/2021 Basic metabolic 2000 panel - Serum or Plasma Basic Metabolic Panel Lab Routine Daily until discontinued starting 05/28/2021, 5 completed [employer] Phone: Comment on above: Daily until discontinued starting 2021, 5 completed End: 02-29-2024 Basic Metabolic Panel w/ Reflex to MG Basic Metabolic Panel w/ Reflex to MG Lab Routine Daily for 5 Days starting 02/25/2024 until 02/29/2024, 3 completed [facility] Comment on above: Daily for 5 Days starting 02/25/2024 unt il 02/29/2024, 3 completed CARDIAC PHASE II CARDIAC PHASE I I Card Rehab Ordered: 10/03/2021 [employer] Comment on above: Ordered: 10/03/2021 CARDIAC PHASE II CARDIAC PHASE I I Card Rehab Ordered: 10/17/2021 [facility] Comment on above: Ordered: 10/17/2021 CARDIAC PHASE II CARDIAC PHASE I I Card Rehab Ordered: 10/28/2021 [employer] Comment on above: Ordered: 10/28/2021 CARDIAC PHASE II CARDIAC PHASE I I Card Rehab Ordered: 12/02/2021 [facility] Comment on above: Ordered: 12/02/2021 CARDIAC PHASE II CARDIAC PHASE I I Card Rehab Ordered: 12/05/2021 [employer] Comment on above: Ordered: 12/05/2021 CBC panel - Blood by Automated count CBC Lab Routine Daily until discontinued starting 05/28/2021, 5 completed [employer]: Comment on above: Daily until discontinued starting 2021, 5 completed End: 02-29-2024 CBC W Auto Differential panel - Blood CBC auto differential Lab Routine Daily for 5 Days starting 02/25/2024 until 02/29/2024, 3 completed [facility] Comment on above: Daily for 5 Days starting 02/25/2024 unt il 02/29/2024, 3 completed Comprehensive metabo lic 2000 panel - Serum or Plasma [facility] CPAP CPAP Respiratory Care Routine Every 4hr until discontinued starting 05/30/2021 [employer] Phone: Comment on above: Every 4hr until discontinued starting End: 07-25-2020 Culture, Urine Culture, Urine Microbiology Routine BPH with obstruction/lower urinary tract symptoms Incomplete emptying of bladder 1 Occurrences starting 07/25/2020 until 07/25/2020 [employer] Phone: Comment on above: 1 Occurrences starting 07/25/2020 until 07/25/2020 Culture, Urine Culture, Urine Microbiology Routine BPH with obstruction/lower urinary tract symptoms Incomplete emptying of bladder 07/25/2020 3:30 PM EST [employer] Phone: End: 05-13-2022 Culture, Urine [employer] Phone: Comment on above: 1 Occurrences starting 05/13/2022 until 05/13/2022 End: 08-05-2022 Culture, Urine [facility] Work Phone: Comment on above: 1 Occurrences starting 08/05/2022 until 08/05/2022 End: 08-16-2024 Culture, Wound (with Gram Stain) [employer] Comment on above: One Time for 1 Occurrences starting 07/24 until 08/16/2024 EKG 12 Lead EKG 12 Lead ECG Routine 07/22/2024 9:31 PM EST [employer] Work Phone: Glucose [Mass/volume ] in Serum or Plasma [employer] Phone: Comment on above: 4X Daily (AC & HS) until discontinued st [facility]ting 05/27/2021 As Needed until disc ontinued starting 05/27/2021 Glucose [Mass/volume ] in Serum or Plasma [facility] Comment on above: 4X Daily (AC & HS) until discontinued st arting 02/24/2024 As Needed until disc ontinued starting 02/24/2024 End: 11-11-2024 Glucose [Mass/volume] in Serum or Plasma [employer] Phone: Comment on above: One Time for 1 Occurrences starting 10/24 until 11/11/2024 Home BIPAP or CPAP Home BIPAP or CPAP Respiratory Care Routine QHS until discontinued starting 02/25/2024 [employer] Phone: Comment on above: QHS until discontinued starting 02/25/20 24 L hrt cath w/njx l ventriculography img s&i LEFT HEART CATH Chest pain [employer] Microalbumin [Mass/v olume] in Urine [facility] End: 05-24-2022 MISCELLANEOUS TESTING [employer] Phone: Comment on above: Once for 1 Occurrences starting 05/24/20 22 until 05/24/2022 End: 10-20-2024 MR Foot - right WO contrast [employer] Comment on above: 1 Occurrences starting 10/20/2024 until 10/20/2024 Oxygen therapy [Mini mum Data Set] Initiate Oxygen Therapy Protocol Respiratory Care Routine Daily until discontinued starting 05/29/2021 [employer] Phone: Comment on above: Daily until discontinued starting 2021 Oxygen therapy [Mini mum Data Set] Initiate Oxygen Therapy Protocol Respiratory Care Routine As Needed until discontinued starting 07/15/2022 [employer] Phone: Comment on above: As Needed until discontinued starting Oxygen therapy [Mini mum Data Set] Initiate Oxygen Therapy Protocol Respiratory Care Routine As Needed until discontinued starting 11/03/2023 [facility] [facility] Comment on above: As Needed until discontinued starting Oxygen therapy [[employer]ini mum Data Set] Initiate Oxygen Therapy Protocol Respiratory Care Routine As Needed until discontinued starting 12/21/2023 [employer] [facility] Comment on above: As Needed until discontinued starting Oxygen therapy [M[employer] mum Data Set] Initiate Oxygen Therapy Protocol Respiratory Care Routine As Needed until discontinued starting 12/21/2023 [employer] Comment on above: As Needed until discontinued starting Oxygen therapy [M[employer] mum Data Set] Initiate Oxygen Therapy Protocol Respiratory Care Routine Daily until discontinued starting 02/24/2024 [facility] Comment on above: Daily until discontinued starting 2023 Oxygen therapy [Mini mum Data Set] Initiate Oxygen Therapy Protocol Respiratory Care Routine Eschar of toe Gangrene of toe of both feet (HCC) Critical limb ischemia of both lower extremities (HCC) As Needed until discontinued starting 07/12/2024 [employer] Comment on above: As Needed until discontinued starting Oxygen therapy [Mini mum Data Set] Initiate Oxygen Therapy Protocol Respiratory Care Routine Eschar of toe Critical limb ischemia of both lower extremities (HCC) Gangrene of toe of both feet (HCC) As Needed until discontinued starting 08/16/2024 [employer] Comment on above: As Needed until discontinued starting Oxygen therapy [[employer] Data Set] Initiate Oxygen Therapy Protocol Respiratory Care Routine Critical limb ischemia of both lower extremities As Needed until discontinued starting 09/06/2024 [employer] Comment on above: As Needed until discontinued starting Oxygen therapy [[employer] Data Set] Initiate Oxygen Therapy Protocol Respiratory Care Routine As Needed until discontinued starting 10/04/2024 [employer] Comment on above: As Needed until discontinued starting Oxygen therapy [[employer] Data Set] Initiate Oxygen Therapy Protocol Respiratory Care Routine Critical limb ischemia of both lower extremities (HCC) As Needed until discontinued starting 11/01/2024 [employer] Comment on above: As Needed until discontinued starting Oxygen therapy [[employer] Data Set] Initiate Oxygen Therapy Protocol Respiratory Care Routine As Needed until discontinued starting 11/11/2024 [employer] Comment on above: As Needed until discontinued starting Oxygen therapy [[employer] Data Set] Initiate Oxygen Therapy Protocol Respiratory Care Routine As Needed until discontinued starting 11/15/2024 [employer] Comment on above: As Needed until discontinued starting Oxygen therapy [M[employer] Data Set] Initiate Oxygen Therapy Protocol Respiratory Care Routine As Needed until discontinued starting 11/22/2024 [employer] Comment on above: As Needed until discontinued starting Oxygen therapy [M[employer] mum Data Set] Initiate Oxygen Therapy Protocol Respiratory Care Routine Critical limb ischemia of both lower extremities (HCC) Eschar of toe Gangrene of toe of both feet (HCC) As Needed until discontinued starting 12/06/2024 [employer] Comment on above: As Needed until discontinued starting Oxygen therapy [[facility] Data Set] Initiate Oxygen Therapy Protocol Respiratory Care Routine Critical limb ischemia of both lower extremities (HCC) Eschar of toe Gangrene of toe of both feet (HCC) As Needed until discontinued starting 12/27/2024 [employer] Comment on above: As Needed until discontinued starting Pathology study Surgical Patholo gy Lab Routine Acute osteomyelitis of right foot (HCC) Open wound of toe(s) Release Upon Ordering for 1 Occurrences starting 11/11/2024 [employer] Comment on above: Release Upon Ordering for 1 Occurrences starting 11/11/2024 End: 12-02-2023 Percutaneous coronary intervention [facility] Comment on above: One Time for 1 Occurrences starting 11/22 until 12/02/2023 Protime-INR Protime-INR Lab STAT As Needed until discontinued starting 05/29/2021 [employer]: Comment on above: As Needed until discontinued starting End: 08-05-2023 PSA screening [facility] Comment on above: 1 Occurrences starting 08/05/2023 until 08/05/2023 PTH, Intact with Ion ized Calcium PTH, Intact with Ionized Calcium Lab Routine Acute on chronic diastolic (congestive) heart failure (HCC) ASHD (arteriosclerotic heart disease) S/P angioplasty with stent Essential hypertension Mixed hyperlipidemia PAD (peripheral artery disease) ([facility]) CHRIS (obstructive sleep apnea) Stage 3a chronic kidney disease ([facility]) Obesity, unspecified class, unspecified obesity type, unspecified whether serious comorbidity present 05/06/2024 12:46 PM EST [employer] End: 05-24-2022 [employer]: Comment on above: Once for 1 Occurrences starting 05/24/20 until 05/24/2022 [facility] Immunizations Immunization Date Immunization Notes Care Provider Fa doron 11-12-2022 tetanus toxoid, redu beatriz diphtheria toxoid, and acellular pertussis vaccine, adsorbed Alice Cochran DPM Work Phone: [facility] 07-29-2019 pneumococcal polysaccharide vaccine, 23 valent Alice Cochran DPM Work Phone: [facility] 06-25-2013 pneumococcal conjuga te vaccine, 13 valent Alice Cochran DPM Work Phone: [facility] Payers Date Payer Category Payer Medicare [id number] 15 2024 Medicare 2022 Private Health Insurance [id number] 2022 Unknown [id number] [id number] 2022 Medicare [id number] 15 2020 Unknown [id number] 1.2.840.571503.1.13.239.2.7.3.789094.315 1959 Unknown [id number] 2.16.8 40.1.954502.3.579.2.174 1959 Unknown [id number] 2.16.84 0.1.795553.3.579.2.593 1959 Unknown [id number] 2.16.84 0.1.365371.3.579.2.593 1959 Unknown [id number] 2.16.84 0.1.274252.3.579.2.593 1959 Unknown [id number] 2.16.84 0.1.525766.3.579.2.593 - Unknown [id number] 2.16. 840.1.284621.3.579.2.196 1959 Unknown [id number] 2.16. 840.1.727684.3.579.2.175 1959 Unknown [id number] 2.16.8 40.1.851980.3.579.2.1259 1959 Unknown [id number] 2.16.84 0.1.455195.3.579.2.1259 1959 Unknown [id number] 2.16.84 0.1.529429.3.579.2.1259 1959 Unknown [id number] 2.16.84 0.1.298535.3.579.2.1259 1959 Unknown [id number] 2.16.84 0.1.396011.3.579.2.1259 1959 Unknown [id number] 2.16.84 0.1.295959.3.579.2.1259 1959 Unknown [id number] 2.16.84 0.1.597759.3.579.2.1259 1959 Unknown [id number] 2.16.8 40.1.449307.3.579.2.173 1959 Unknown [id number] 2.16.8 40.1.742269.3.579.2.173 1959 Unknown [id number] 2.16.8 40.1.534205.3.579.2.173 1959 Unknown [id number] 2.16.8 40.1.750959.3.579.2.173 1959 Unknown [id number] 2.16.8 40.1.107673.3.579.2.173 1959 Unknown [id number] 2.16.8 40.1.195604.3.579.2.173 1959 Unknown [id number] 2.16.8 40.1.102061.3.579.2.173 - Unknown [id number] 2.16.8 40.1.377195.3.579.2.173 1959 Unknown [id number] 2.16.8 40.1.279774.3.579.2.173 1959 Unknown [id number] 2.16.8 40.1.502438.3.579.2.173 1959 Unknown [id number] 2.16.8 40.1.519694.3.579.2.173 1959 Unknown [id number] 2.16.8 40.1.625621.3.579.2.173 1959 Unknown [id number] 2.16.8 40.1.903307.3.579.2.173 1959 Unknown [id number] 2.16.8 40.1.512682.3.579.2.173 1959 Unknown [id number] 2.16.8 40.1.225004.3.579.2.173 1959 Unknown [id number] 2.16.8 40.1.657854.3.579.2.173 1959 Unknown [id number] 2.16.8 40.1.254470.3.579.2.173 1959 Unknown [id number] 2.16.8 40.1.414918.3.579.2.173 1959 Unknown [id number] 2.16.8 40.1.847211.3.579.2.173 1959 Unknown [id number] 2.16.8 40.1.018612.3.579.2.173 1959 Unknown [id number] 2.16.8 40.1.330788.3.579.2.173 1959 Unknown [id number] 2.16.8 40.1.943401.3.579.2.173 1959 Unknown [id number] 2.16.8 40.1.035023.3.579.2.173 1959 Unknown [id number] 2.16.8 40.1.860996.3.579.2.173 1959 Unknown [id number] 2.16.8 40.1.821989.3.579.2.173 1959 Unknown [id number] 2.16.8 40.1.948616.3.579.2.173 1959 Unknown [id number] 2.16.8 40.1.918639.3.579.2.173 1959 Unknown [id number] 2.16.8 40.1.569224.3.579.2.173 1959 Unknown [id number] 2.16.8 40.1.611429.3.579.2.173 1959 Unknown [id number] 2.16.8 40.1.211651.3.579.2.173 1959 Unknown [id number] 2.16.8 40.1.179688.3.579.2.173 1959 Unknown [id number] 2.16.8 40.1.819190.3.579.2.173 1959 Unknown [id number] 2.16.8 40.1.585686.3.579.2.173 1959 Unknown [id number] 2.16.8 40.1.992390.3.579.2.173 1959 Unknown [id number] 2.16.8 40.1.843090.3.579.2.173 1959 Unknown [id number] 2.16.8 40.1.922311.3.579.2.173 1959 Unknown [id number] 2.16.8 40.1.422375.3.579.2.173 1959 Unknown [id number] 2.16.8 40.1.020515.3.579.2.173 1959 Unknown [id number] 2.16.8 40.1.950454.3.579.2.173 1959 Unknown [id number] 2.16.8 40.1.645704.3.579.2.173 1959 Self-pay [id number] 1959 Unknown [id number] 1.2.840.661917.1.13.239.2.7.3.022203.315 Unknown [id number] 2.16.8 40.1.259080.3.579.2.531 Unknown [id number] 2.16.8 40.1.805734.3.579.2.531 Social History Date Type Detail Facility Start: 07-25-2020 End: 01-02-2022 Tobacco smoking status [facility] Never smoker [employer] Phone: Start: 07-25-2020 End: 01-02-2022 Tobacco use and exposure Never used [employer]: Start: 07-25-2020 End: 12-27-2024 Alcohol intake Lifetime non-drinker (finding) [employer]: Start: 07-25-2020 History SDOH Alcohol Frequency 1 [employer]: Start: 1960 Sex Assigned At Not on file [employer] Phone: Start: 08-30-2021 End: 07-01-2022 Exposure to SARS-CoV-2 (event) Not sure [employer] Start: 1960 Sex Assigned At Male F [facility] Start: 07-25-2020 End: 12-27-2024 Sex Assigned At [employer] Phone: Start: 07-25-2020 End: 12-27-2024 History of Social function [employer] Phone: How often to you hav e a drink containing alcohol? Never [employer] Phone: Average Number of Drinks Not on file [facility] Start: 07-05-2020 End: 07-12-2024 Sex Male (finding) [facility] Medical Equipment Procedure Code Equipment Code Equipment Origin al Text Equipment Identifier Dates [id number] Start: 05-30-2020 USE TO INJECT INSULIN TWICE DAILY DIRECTED [id number] Start: 07-02-2020 Pen Needle, Diab etic (Bd Ultra-Fine Paulina Pen Needle) 32 gauge x 5/32 needle Start: 08-04-2023 Pen Needle, Diab etic (Bd Ultra-Fine Paulina Pen Needle) 32 gauge x 5/32 needle Start: 07-27-2023 Pen Needle, Diab etic (Bd Ultra-Fine Paulina Pen Needle) 32 gauge x 5/32 needle Start: 08-04-2023 Pen Needle, Diab etic (Bd Ultra-Fine Paulina Pen Needle) 32 gauge x 5/32 needle Start: 12-15-2023 Pen Needle, Diab etic (Bd Ultra-Fine Paulina Pen Needle) 32 gauge x 5/32 needle Start: 07-27-2023 End: 12-15-2023 Pen Needle, Diab etic (Bd Ultra-Fine Paulina Pen Needle) 32 gauge x 5/32 needle Start: 08-04-2023 Pen Needle, Diab etic (Bd Ultra-Fine Paulina Pen Needle) 32 gauge x 5/32 needle Start: 12-15-2023 Pen Needle, Diab etic (Bd Ultra-Fine Paulina Pen Needle) 32 gauge x 5/32 needle Start: 07-27-2023 End: 12-15-2023 Pen Needle, Diab etic (Bd Ultra-Fine Paulina Pen Needle) 32 gauge x 5/32 needle Start: 08-04-2023 Pen Needle, Diab etic (Bd Ultra-Fine Paulina Pen Needle) 32 gauge x 5/32 needle Start: 12-15-2023 Pen Needle, Diab etic (Bd Ultra-Fine Paulina Pen Needle) 32 gauge x 5/32 needle Start: 07-27-2023 End: 12-15-2023 Pen Needle, Diab etic (Bd Ultra-Fine Paulina Pen Needle) 32 gauge x 5/32 needle Start: 08-04-2023 Pen Needle, Diab etic (Bd Ultra-Fine Paulina Pen Needle) 32 gauge x 5/32 needle Start: 12-15-2023 Pen Needle, Diab etic (Bd Ultra-Fine Paulina Pen Needle) 32 gauge x 5/32 needle Start: 07-27-2023 End: 12-15-2023 Clinical Notes 06-25-2019 to 12-27-2024 Discharge InstructionsRosi Campbell RN - 12/27/2024 10:30 AM EDTBQuincy brady DPM - 12/27/2024 10:30 AM EDTDischarge InstructionsRosi Campbell RN - 12/06/2024 12:00 PM EDT Note Date & Type Note Facility 12-27-2024 Hospital Discharge instructions Rosi Campbell RN - 12/27/2024 10:54 AM EDT Wound Management Patient Discharge Instructions CALL [phone] for questions regarding care of your wounds. USUAL OFFICE HOURS ARE TUESDAYS MORNINGS AND THURSDAYS(9-2:30) and subject to change without notice PLEASE ARRIVE PRIOR TO APPOINTMENT TIME TO COMPLETE REGISTRATION PROCESS Discharge instructions for the patient's plan of care. Wound care:Right great toe Wear tubigrip to legs to keep edema down. Return to clinic as needed. Next appointment: Future Appointments Date Time Provider Department Center 03/15/2025 1:30 PM Floyd Vee MD [facility]ASC [facility] 04/12/2025 2:30 PM [facility] 04/27/2025 1:40 PM Alma Kan MD TIFF CARD [facility] 07/12/2025 1:00 PM [facility] [place] 10/09/2025 1:00 PM Arabella Dyer [facility]C [facility] Your wound care supplies were ordered from [facility], unless otherwise stated. If you do not receive them in 3 days call them at . SURVEY: You may be receiving a survey from [employer] regarding your visit today. Please complete the survey to enable us to provide the highest quality of care to you and your family. If you cannot score us a very good on any question, please call the office to discuss how we could have made your experience a very good one. REMINDER: You will receive 2 bills for each visit. One is a professional fee charge for the physician and the other is a facility fee for the hospital. documented in this encounter [facility] 12-27-2024 History of Present illness Narrative Diabetic Quality Measure Benchmarks: FSBS: RESULT 213 0800 Hemoglobin A1c Controlled and is < 8%= YES Lab Results Component Value Date LABA1C 7.5 (H) 10/04/2024 LDL is <100 Yes Blood Pressure is under < 140/90 Yes Tobacco Non use Yes Aspirin Use/blood thinner Yes Information sent to PCP Yes Instructions given to Patient regarding follow up and or education Yes POD > 30 / < 90 N: malaise; every day until mid afternoon; meds MRR: partial hallux amputation, Right with advancement flap Past Medical History: Diagnosis Date Cerebrovascular accident (CVA) ([facility]) 2019 CHF (congestive heart failure) ([facility]) Chronic kidney failure, stage 3 (moderate) ([facility]) Chronic pain COVID-19 06/05/2021 Critical limb ischemia of both lower extremities ([facility]) 02/24/2024 Essential hypertension H/O heart artery stent 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 ([facility]) Lymphedema Obstructive sleep apnea on CPAP Type 2 diabetes mellitus without complication (HCC) Type 2 diabetes mellitus without complication ([facility]) Past Surgical History: Procedure Laterality Date ANGIOPLASTY 06/03/2021 cardiac PCI CARDIAC CATHETERIZATION 05/29/2021 Dr Mars/[facility] [place]/right radial-Severe three vessel coronary artery disease involving a 90% proximal RCA stenosis, a 70% distal RCA stenosis, a 100% probably chronic total occlusion of a OM1 that has a long stent in the proximal vessel mid 90% stenosis in the left anterior descending coronary artery. Consult interventional cardiology for angioplasty and/or stenting. CARDIAC CATHETERIZATION 09/09/2021 SYLVIA mid LAD CARDIAC PROCEDURE N/A 12/21/2023 Left heart cath / coronary angiography performed by Tigist Correa MD at [facility] Cardiac Cath/IR INVASIVE VASCULAR N/A 03/08/2024 Angiography lower ext bilat performed by Floyd Vee MD at [facility] CARDIAC CATH/IR LAB INVASIVE VASCULAR N/A 03/08/2024 Angioplasty common iliac artery performed by Floyd Vee MD at [facility] CARDIAC CATH/IR LAB LASER OF PROSTATE W/ GREEN LIGHT PVP 07/15/2022 CYSTOSCOPY TRANSURETHRAL RESECTION PROSTATE LASER-PVP GREENLIGHT- Dr. Ferrer LYMPH NODE DISSECTION Right 1967 TOE AMPUTATION Right 11/11/2024 TOE AMPUTATION-big toe right, flap closure of right foot performed by Quincy Penn DPM at [facility] OR TURP N/A 07/15/2022 CYSTOSCOPY TRANSURETHRAL RESECTION PROSTATE LASER-PVP GREENLIGHT performed by Akira Ferrer MD at [facility] OR Allergies Allergen Reactions Azithromycin Dizziness or Vertigo Farxiga [Dapagliflozin] Itching Lisinopril Cough Metoprolol Other Reaction(s): Unknown Ciprofloxacin Itching and rash Current Outpatient Medications: pravastatin (PRAVACHOL) 40 MG tablet, Take 1 tablet by mouth daily, Disp: 90 tablet, Rfl: 3 fluticasone (FLONASE) 50 MCG/ACT nasal spray, 2 sprays by Nasal route daily as needed for Allergies, Disp: , Rfl: furosemide (LASIX) 40 MG tablet, Take 1 tablet by mouth daily (Patient taking differently: Take 1 tablet by mouth daily Taking 40 mg po BID), Disp: , Rfl: BD PEN NEEDLE PAULINA U/F 32G X 4 MM [facility], USE ONE TO INJECT INSULIN FOUR TIMES A DAY 25, Disp: , Rfl: losartan (COZAAR) 25 MG tablet, Take 1 tablet by mouth daily, Disp: , Rfl: pantoprazole (PROTONIX) 40 MG tablet, Take 1 tablet by mouth daily, Disp: , Rfl: Continuous Glucose Sensor (FREESTYLE SARMAD 3 SENSOR) [facility], , Disp: , Rfl: spironolactone (ALDACTONE) 50 MG tablet, Take 1 tablet by mouth daily, Disp: , Rfl: carvedilol (COREG) 12.5 MG tablet, TAKE ONE TABLET BY MOUTH TWICE A DAY (WITH MEALS), Disp: 60 tablet, Rfl: 5 docusate sodium (COLACE) 100 MG capsule, Take 1 capsule by mouth as needed for Constipation, Disp: , Rfl: nitroGLYCERIN (NITROSTAT) 0.4 MG SL tablet, up to max of 3 total doses. If no relief after 1 dose, call 911., Disp: 25 tablet, Rfl: 3 empagliflozin (JARDIANCE) 10 MG tablet, Take 1 tablet by mouth daily, Disp: 90 tablet, Rfl: 3 allopurinol (ZYLOPRIM) 100 MG tablet, Take 1 tablet by mouth Every Day, Disp: , Rfl: polyethylene glycol (GLYCOLAX) 17 GM/SCOOP powder, Take 17 g by mouth daily, Disp: 850 g, Rfl: 7 famotidine (PEPCID) 20 MG tablet, Take 1 tablet by mouth 2 times daily as needed, Disp: , Rfl: clopidogrel (PLAVIX) 75 MG tablet, Take 1 tablet by mouth daily, Disp: , Rfl: TOUJEO SOLOSTAR 300 UNIT/ML SOPN, Inject 60 Units into the skin nightly Indications: 140 (Patient taking differently: Inject 30 Units into the skin in the morning and at bedtime Indications: 140), Disp: , Rfl: Multiple Vitamins-Minerals (QC MENS DAILY MULTIVITAMIN PO), Take by mouth daily, Disp: , Rfl: ascorbic acid (VITAMIN C) 1000 MG tablet, Take 1 tablet by mouth daily, Disp: , Rfl: HUMALOG KWIKPEN 100 UNIT/ML SOPN, 3 times daily (before meals) SSIC 100-150 6 units 151-200 16 units 201-250 20 units 251-300 24 units, Disp: , Rfl: aspirin 81 MG EC tablet, Take 1 tablet by mouth daily, Disp: , Rfl: Alpha-Lipoic Acid 200 MG CAPS, Take 1 capsule by mouth daily (Patient not taking: Reported on 12/27/2024), Disp: , Rfl: meclizine (ANTIVERT) 25 MG tablet, Take 1 tablet by mouth 3 times daily as needed (Patient not taking: Reported on 10/20/2024), Disp: , Rfl: traMADol (ULTRAM) 50 MG tablet, Take 1 tablet by mouth every 8 hours as needed for Pain. (Patient not taking: Reported on 12/27/2024), Disp: , Rfl: mupirocin (BACTROBAN) 2 % ointment, Apply topically daily Foot wounds (Patient not taking: Reported on 11/15/2024), Disp: , Rfl: MAGNESIUM OXIDE PO, Take 500 mg by mouth daily (Patient not taking: Reported on 12/27/2024), Disp: , Rfl: PE: VSS, Afebrile, No Ambulatory; wheelchair transport RLE=LLE; +1/7 pitting edema RLE: hallux stump; healed / photo documentation IMP: post op healed; residual low grade edema may affect street shoe transition REC: Tubigrip f P: see orders / AVS RTC prn; DISCHARGED Quincy Penn DPM 12/27/2024 10:56 AM documented in this encounter [facility] 12-06-2024 Hospital Discharge instructions Rosi Campbell RN - 12/06/2024 12:23 PM EDT Wound Management Patient Discharge Instructions CALL [phone] for questions regarding care of your wounds. USUAL OFFICE HOURS ARE TUESDAYS MORNINGS AND THURSDAYS(9-2:30) and subject to change without notice PLEASE ARRIVE PRIOR TO APPOINTMENT TIME TO COMPLETE REGISTRATION PROCESS Discharge instructions for the patient's plan of care. Wound care:Right great toe Cleanse with mild soap and water pat dry at dressing change time. CHANGE DRESSING EVERY OTHER DAY. Apply small piece of puracol plus to area secure with bandaide. No shoes yet wear surgical shoe. May begin with physical therapy. Return to clinic Thursday12/27/24 at 10:30AM Next appointment: Future Appointments Date Time Provider Department Center 12/27/2024 10:30 AM Quincy Penn DPM [facility] [place] 03/15/2025 1:30 PM Floyd Vee MD [facility] 04/12/2025 2:30 PM Arab[facility] D[facility] 04/27/2025 1:40 PM Alma Kan MD TIF CARD [facility] 07/12/2025 1:00 PM [facility] [place] 10/09/2025 1:00 PM Arabella Dyer PA-C [facility] Your wound care supplies were ordered from [facility], unless otherwise stated. If you do not receive them in 3 days call them at . SURVEY: You may be receiving a survey from [facility] regarding your visit today. Please complete the survey to enable us to provide the highest quality of care to you and your family. If you cannot score us a very good on any question, please call the office to discuss how we could have made your experience a very good one. Thank you. Lit HeltonRN, Rosi Campbell RN and Arianna GuillaumeRN REMINDER: You will receive 2 bills for each visit. One is a professional fee charge for the physician and the other is a facility fee for the hospital. documented in this encounter [facility] 12-06-2024 History of Present illness Narrative Diabetic Quality Measure Benchmarks: FSBS: RESULT 200 0800 Hemoglobin A1c Controlled and is < 8%= YES Lab Results Component Value Date LABA1C 7.5 (H) 10/04/2024 LDL is <100 Yes Blood Pressure is under < 140/90 Yes Tobacco Non use Yes Aspirin Use/blood thinner Yes Information sent to PCP Yes Instructions given to Patient regarding follow up and or education Yes documented in this encounter [facility] 11-22-2024 Hospital Discharge instructions Rosi Campbell RN - 11/22/2024 11:22 AM EDT Wound Management Patient Discharge Instructions CALL [phone] for questions regarding care of your wounds. USUAL OFFICE HOURS ARE TUESDAYS MORNINGS AND THURSDAYS(9-2:30) and subject to change without notice PLEASE ARRIVE PRIOR TO APPOINTMENT TIME TO COMPLETE REGISTRATION PROCESS Discharge instructions for the patient's plan of care. Wound care: Right great toe remove dressing on Thursday, soak in warm epsom salt water for 5 minutes let air dry then apply neosporin and dry dressing daily. Left toes apply neosporin and leave open to air. Return to clinic Thursday12/06/24 at 12 Noon Next appointment: Future Appointments Date Time Provider Department Center 12/06/2024 12:00 PM Quincy Penn DPM [facility] [place] 03/15/2025 1:30 PM Floyd Vee MD TIF VASC [facility] 04/12/2025 2:30 PM Arabella Dyer PA-C [facility] 04/27/2025 1:40 PM Alma Kan MD TIFF CARD [facility] 07/12/2025 1:00 PM [facility] [place] 10/09/2025 1:00 PM Arabella Dyer PA-C [facility] Your wound care supplies were ordered from [facility], unless otherwise stated. If you do not receive them in 3 days call them at . SURVEY: You may be receiving a survey from [facility] regarding your visit today. Please complete the survey to enable us to provide the highest quality of care to you and your family. If you cannot score us a very good on any question, please call the office to discuss how we could have made your experience a very good one. Thank you. Lit Helton,MIGUE, Rosi Campbell,RN and Arianna Guillaume RN REMINDER: You will receive 2 bills for each visit. One is a professional fee charge for the physician and the other is a facility fee for the hospital. documented in this encounter [facility] 11-22-2024 History of Present illness Narrative Diabetic Quality Measure Benchmarks: FSBS: RESULT 699 Hemoglobin A1c Controlled and is < 8%= NO Lab Results Component Value Date LABA1C 7.5 (H) 10/04/2024 LDL is <100 Yes Blood Pressure is under < 140/90 YESTobacco Non use Yes Aspirin Use/blood thinner Yes Information sent to PCP Yes Instructions given to Patient regarding follow up and or education Yes POV #2 POD #12 N: feel good -- better than last visit MRR: partial hallux amputation ,R1 / advancement flap DDx: osteomyelitis, ABLATIVE documentation HPI: post op DSD care Past Medical History: Diagnosis Date Cerebrovascular accident (CVA) ([facility]) 2019 CHF (congestive heart failure) ([facility]) Chronic kidney failure, stage 3 (moderate) ([facility]) Chronic pain COVID-19 06/05/2021 Critical limb ischemia of both lower extremities ([facility]) 02/24/2024 Essential hypertension H/O heart artery stent 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 ([facility]) Lymphedema Obstructive sleep apnea on CPAP Type 2 diabetes mellitus without complication (HCC) Type 2 diabetes mellitus without complication ([facility]) Past Surgical History: Procedure Laterality Date ANGIOPLASTY 06/03/2021 cardiac PCI CARDIAC CATHETERIZATION 05/29/2021 Dr Mars/[facility]/right radial-Severe three vessel coronary artery disease involving a 90% proximal RCA stenosis, a 70% distal RCA stenosis, a 100% probably chronic total occlusion of a OM1 that has a long stent in the proximal vessel mid 90% stenosis in the left anterior descending coronary artery. Consult interventional cardiology for angioplasty and/or stenting. CARDIAC CATHETERIZATION 09/09/2021 SYLVIA mid LAD CARDIAC PROCEDURE N/A 12/21/2023 Left heart cath / coronary angiography performed by Tigist Correa MD at [facility] Cardiac Cath/IR INVASIVE VASCULAR N/A 03/08/2024 Angiography lower ext bilat performed by Floyd Vee MD at [facility] CARDIAC CATH/IR LAB INVASIVE VASCULAR N/A 03/08/2024 Angioplasty common iliac artery performed by Floyd Vee MD at [facility] CARDIAC CATH/IR LAB LASER OF PROSTATE W/ GREEN LIGHT PVP 07/15/2022 CYSTOSCOPY TRANSURETHRAL RESECTION PROSTATE LASER-PVP GREENLIGHT- Dr. Ferrer LYMPH NODE DISSECTION Right 1967 TOE AMPUTATION Right 11/11/2024 TOE AMPUTATION-big toe right, flap closure of right foot performed by Quincy Penn DPM at [facility] OR TURP N/A 07/15/2022 CYSTOSCOPY TRANSURETHRAL RESECTION PROSTATE LASER-PVP GREENLIGHT performed by Akira Ferrer MD at [facility] OR ROS: neg. Constitutional +BM / +void / -n/v -calf pain / -SOB / -chest pain PE: VSS, Afebrile, NAD, A&O x 3, RLE ; dressing C, D, & I ; removed R1; incision coapt without tension or drainage No erythema / minimal edema Photo documentation Path: Ablative documentation of osteomyelitis resection IMP: post op Right hallux ; no apparent complications Tx: DSD applied P: remove dressing 3 days (72 hours) ; begin astringent soaks, air dry ; F/U neosporin + guaze RTC 2-3 weeks Quincy Penn DPM 11/22/2024 11:27 AM documented in this encounter [facility] 11-15-2024 Hospital Discharge instructions Rosi Campbell RN - 11/15/2024 9:05 AM EDT Wound Management Patient Discharge Instructions CALL [phone] for questions regarding care of your wounds. USUAL OFFICE HOURS ARE TUESDAYS MORNINGS AND THURSDAYS(9-2:30) and subject to change without notice PLEASE ARRIVE PRIOR TO APPOINTMENT TIME TO COMPLETE REGISTRATION PROCESS Discharge instructions for the patient's plan of care. Wound care: Right great toe LEAVE DRESSING IN PLACE KEEP DRY AND INTACT TILL NEXT VISIT Return to clinic Thursday11/22/24 at 11:00AM Next appointment: Future Appointments Date Time Provider Department Center 11/16/2024 1:00 PM [facility] [place] 11/22/2024 11:00 AM Quincy Penn DPM [facility] WND [place] 03/15/2025 1:30 PM [facility] Vee [facility] 04/12/2025 2:30 PM Arab[facility] Dyer [facility] 04/27/2025 1:40 PM Alma Kan MD [facility] C[facility] 10/09/2025 1:00 PM Arabella Dyer PA-C [facility] Your wound care supplies were ordered from [facility], unless otherwise stated. If you do not receive them in 3 days call them at . SURVEY: You may be receiving a survey from [employer] regarding your visit today. Please complete the survey to enable us to provide the highest quality of care to you and your family. If you cannot score us a very good on any question, please call the office to discuss how we could have made your experience a very good one. Thank you. Lit Helton,RN, Rosi Campbell,RN and Arianna Guillaume,RN REMINDER: You will receive 2 bills for each visit. One is a professional fee charge for the physician and the other is a facility fee for the hospital. documented in this encounter [facility] 11-15-2024 History of Present illness Narrative POV #1 POD # 4 MRR: hallux amputation & advancement flap N: constipated ROS: +appetite / -BM / +void NEG. 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 ([facility]) Lymphedema Obstructive sleep apnea on CPAP Type 2 diabetes mellitus without complication ([facility]) Type 2 diabetes mellitus without complication ([facility]) Past Surgical History: Procedure Laterality Date ANGIOPLASTY 06/03/2021 cardiac PCI CARDIAC CATHETERIZATION 05/29/2021 Dr Mars/[facility] [place]/right radial-Severe three vessel coronary artery disease involving a 90% proximal RCA stenosis, a 70% distal RCA stenosis, a 100% probably chronic total occlusion of a OM1 that has a long stent in the proximal vessel mid 90% stenosis in the left anterior descending coronary artery. Consult interventional cardiology for angioplasty and/or stenting. CARDIAC CATHETERIZATION 09/09/2021 SYLVIA mid LAD CARDIAC PROCEDURE N/A 12/21/2023 Left heart cath / coronary angiography performed by Tigist Correa MD at [facility] Cardiac Cath/IR INVASIVE VASCULAR N/A 03/08/2024 Angiography lower ext bilat performed by Floyd Vee MD at [facility] CARDIAC CATH/IR LAB INVASIVE VASCULAR N/A 03/08/2024 Angioplasty common iliac artery performed by Floyd Vee MD at [facility] CARDIAC CATH/IR LAB LASER OF PROSTATE W/ GREEN LIGHT PVP 07/15/2022 CYSTOSCOPY TRANSURETHRAL RESECTION PROSTATE LASER-PVP GREENLIGHT- Dr. Ferrer LYMPH NODE DISSECTION Right 1967 TURP N/A 07/15/2022 CYSTOSCOPY TRANSURETHRAL RESECTION PROSTATE LASER-PVP GREENLIGHT performed by Akira Ferrer MD at [facility] OR PE: VSS, Afebrile, NAD, A&O x 3, Ambulatory in B/L Darco flat shoes; A-propulsive RLE: dressing disheveled; removed R1 ; incision coapt, without tension of drainage Photo documentation Pathology; distal phalanx osteomyelitis ; ABLATIVE documentation IMP: stable - delicate post op site; subacute; Right hallux Post op constipation REC: Ortho Bowel regime ; Caridad colace / M.O.M. / Fleets today Tx: DSD applied P: see orders / AVS / Rx RTC 1 week ; suture removal Quincy Penn DPM 11/15/2024 9:20 AM documented in this encounter [facility] 11-11-2024 History of Present illness Narrative Discharge Criteria Inpatients must meet Criteria 1 through 7. All other patients are either YES or N/A. If a NO is chosen then Anesthesia or Surgeon must be notified. 1. Minimum 30 minutes after last dose of sedative medication. Yes 2. Systolic BP between 90 - 160. Diastolic BP between 60 - 90. No- anesthesia notified, ok to discharge 3. Pulse between 60 - 120 Yes 4. Respirations between 8 - 25. Yes 5. SpO2 92% - 100%. Yes 6. Able to cough and swallow or return to baseline function. Yes 7. Alert and oriented or return to baseline mental status. Yes 8. Demonstrates controlled, coordinated movements, ambulates with steady gait, or return to baseline activity function. Yes 9. Minimal or no pain or nausea, or at a level tolerable and acceptable to patient. Yes 10. Takes and retains oral fluids as allowed. Yes 11. Procedural / perioperative site stable. Minimal or no bleeding. Yes 12. If GI endoscopy procedure, minimal or no abdominal distention or passing flatus. N/A 13. Written discharge instructions and emergency telephone number provided. Yes 14. Accompanied by a responsible adult. Yes Patient instructed on the pre-operative, intra-operative, and post-operative process. Patient instructed on NPO status. Medication instructions and pre operative instruction sheet reviewed with the patient. CHG skin prep instructions reviewed with patient. documented in this encounter [facility] 11-11-2024 Hospital Discharge instructions Yumiko Toussaint RN - 11/11/2024 9:08 AM EDT Keep bandage clean, dry and intact , don't remove Elevate right leg next 2 days Use surgical shoe when up , partial weight to right foot/leg Diet : bland foods Use Tylenol 500 every 6 hours as written , with food, IF necessary F/U appt w/ Dr. Penn , our office will call Monitor temp. Every [address] Penn , [employer] , SAME DAY SURGERY DISCHARGE INSTRUCTIONS 1. Do not drive or operate hazardous machinery for 24 hours. 2. Do not make important personal or business decisions for 24 hours. 3. Do not drink alcoholic beverages for 24 hours. 4. Do not smoke tobacco products for 24 hours. 5. Eat light foods (Jell-O, soups, etc....) and drink plenty of fluids (water, Sprite, etc...) up to 8 glasses per day, as you can tolerate. 6. If your bandages become soaked with bright red blood, place another dressing pad over your bandages. (DO NOT remove original bandage.) Call your surgeon for further instructions. A small amount of bright red blood is to be expected. 7. Limit your activities for 24 hours. Do not engage in heavy work until your surgeon gives you permission. 8. Patient should not be left alone for 12-24 hours following surgical procedure. 9. Report the following signs or any questions regarding your physical condition to your surgeon immediately: Excessive swelling of, or around the wound area. Redness. Temperature of 100 degrees (F) or above. Excessive pain. 10. Call your surgeon for any questions regarding your surgery. 11. It is important to practice good personal hygiene during the post op period. documented in this encounter [facility] 11-09-2024 History of Present illness Narrative Images from the original note were not included. Subjective Patient ID: Piotr Kerr is a 64 y.o. male who presents for Nail care (Piotr Kerr is a 64 y.o. male, Established pt presents today for diabetic nail care. Patient relates he is scheduled for Right great toe Amputation 11/11/2024. PCP: Dr. Pritchett). HPI HPI Constitutional: Patient presents for diabetic assessment and nail care. Onychomycosis/Toenail Fungus: Toenail deformity. Location: describes all digits with thickened, deformed and discolored toenails. Duration: chronic toenail deformity, multiple years duration. Severity of symptoms: mild pressure; acknowledging a sensation of numbness involving both feet. Onset: gradual, without known injury or trauma. Status: problematic over the past several weeks or so. Context: hard to trim, hard to region; self-care is if occult, ineffective and not practical; increasing risk exposure. His spouse and/or family members are unable and hesitant to perform care. Characteristics: discolored, thickened , elongated , pressure , /lifting , crusty; without bleeding or drainage. Relieved by: well satisfied with previous palliative care measures. Previous Treatment: palliative care as noted. Risk factors: Medical comorbidities. Polypharmacy. Plavix and ASA therapy. Type II diabetes/IDDM. Diabetic peripheral neuropathy. Diabetic peripheral vasculopathy. Status post CVA. mobility, flexibility and dexterity restraints. Toenail deformity. Digital and/or shoe trauma and related complications. Aggravated by: shoe gear , pressure , walking; catching and snagging on clothing etc.. PCP Dr. Pritchett. Medications Current Outpatient Medications: acetaminophen-codeine (Tylenol w/ Codeine #3) 300-30 MG tablet, TAKE 1 TABLET BY MOUTH EVERY 4 HOURS NEEDED FOR PAIN FOR UP TO 3 DAYS, TAKE LOWEST DOSE POSSIBLE TO MANAGE PAIN Oral for 3 Days (Patient not taking: Reported on 08/08/2024), Disp: , Rfl: allopurinol (Zyloprim) 100 MG tablet, Take 100 mg by mouth, Disp: , Rfl: Alpha-Lipoic Acid 600 MG capsule, Take by mouth. (Patient not taking: Reported on 05/26/2024), Disp: , Rfl: ascorbic acid (Vitamin C) 1000 MG tablet, Take 1 tablet by mouth Daily, Disp: , Rfl: aspirin 81 MG EC tablet, Take 1 tablet by mouth in the morning., Disp: , Rfl: Bacillus Coagulans-Inulin (Probiotic) 1-250 BILLION-MG capsule, Probiotic (Patient not taking: Reported on 05/26/2024), Disp: , Rfl: carvedilol (Coreg) 6.25 MG tablet, TAKE ONE TABLET BY MOUTH TWICE A DAY (WITH MEALS), Disp: , Rfl: cephalexin (Keflex) 250 MG capsule, Take 250 mg by mouth in the morning and 250 mg at noon and 250 mg in the evening and 250 mg before bedtime., Disp: , Rfl: clopidogrel (Plavix) 75 MG tablet, Take 1 tablet by mouth in the morning., Disp: , Rfl: docusate sodium (Colace) 100 MG capsule, Take 100 mg by mouth in the morning and 100 mg before bedtime. (Patient not taking: Reported on 08/08/2024), Disp: , Rfl: doxycycline (Vibramycin) 100 MG capsule, Take 100 mg by mouth in the morning and 100 mg before bedtime. (Patient not taking: Reported on 08/08/2024), Disp: , Rfl: empagliflozin (Jardiance) 10 MG, 1 (one) time each day at the same time, Disp: , Rfl: Entresto 24-26 MG tablet, every 12 (twelve) hours, Disp: , Rfl: famotidine (Pepcid) 20 MG tablet, Take 20 mg by mouth in the morning and 20 mg before bedtime. (Patient not taking: Reported on 08/08/2024), Disp: , Rfl: furosemide (Lasix) 80 MG tablet, Take 20 mg by mouth Daily, Disp: , Rfl: HumaLOG KWIKPEN 100 UNIT/ML injection, INJECT 10 UNITS VIA SUBCUTANEOUS ROUTE BEFORE EACH MEAL, Disp: , Rfl: Lasix 40 MG tablet, 1 (one) time each day at the same time. (Patient not taking: Reported on 08/08/2024), Disp: , Rfl: losartan (Cozaar) 25 MG tablet, Take by mouth, Disp: , Rfl: magnesium oxide (Mag-Ox) 400 MG tablet, Take 1 tablet by mouth Daily, Disp: , Rfl: meclizine (Antivert) 25 MG tablet, Take 25 mg by mouth 3 (three) times a day as needed for dizziness, Disp: , Rfl: metOLazone (Zaroxolyn) 2.5 MG tablet, Take 2.5 mg by mouth (Patient not taking: Reported on 08/08/2024), Disp: , Rfl: MULTIPLE VITAMINS ESSENTIAL PO, Take by mouth. (Patient not taking: Reported on 08/08/2024), Disp: , Rfl: nitroglycerin (Nitrostat) 0.4 MG SL tablet, as directed Sublingual (Patient not taking: Reported on 08/08/2024), Disp: , Rfl: pantoprazole (ProtoNix) 40 MG EC tablet, Take 40 mg by mouth in the morning. Take before meals. Do not crush, chew, or split.. (Patient not taking: Reported on 08/08/2024), Disp: , Rfl: polyethylene glycol, PEG, 3350 (Glycolax) 17 GM/SCOOP powder, Take 17 g by mouth. (Patient not taking: Reported on 08/08/2024), Disp: , Rfl: potassium chloride (Klor-Con) 20 MEQ packet, Take 20 mEq by mouth in the morning and 20 mEq before bedtime. (Patient not taking: Reported on 08/08/2024), Disp: , Rfl: pravastatin (Pravachol) 40 MG tablet, Take 20 mg by mouth in the evening, Disp: , Rfl: Sensipar 60 MG tablet, 1 (one) time each day at the same time (Patient not taking: Reported on 08/08/2024), Disp: , Rfl: spironolactone (Aldactone) 50 MG tablet, Take 50 mg by mouth 1 (one) time each day at the same time, Disp: , Rfl: tamsulosin (Flomax) 0.4 MG 24 hr capsule, Take 1 capsule by mouth in the morning., Disp: , Rfl: Toujeo SoloStar 300 UNIT/ML injection, INJECT 44 UNITS DAILY SUBCUTANEOUSLY IN THE EVENING, Disp: , Rfl: zinc 50 MG tablet, 1 (one) time each day at the same time. (Patient not taking: Reported on 08/08/2024), Disp: , Rfl: Allergies Azithromycin, Dapagliflozin, Lisinopril, and Ciprofloxacin Past Surgical History Past Surgical History: Procedure Laterality Date CORONARY STENT PLACEMENT 05/2021 2 CORONARY STENT PLACEMENT 2009 LYMPH NODE DISSECTION Right 1967 removal -right side of neck OTHER SURGICAL HISTORY 07/15/2022 Greenlight therapy for Prostate PROSTATE SURGERY June 2022 Family History Family History Problem Relation Name Age of Onset Diabetes Mother Bebe Kerr Heart disease Mother Bebe Kerr enlarged heart Hypertension Father Rocky Kerr Objective General Examination: GENERAL EXAMINATION: Alert and oriented. Pleasant disposition. Ambulatory with cane assist; wearing slippers. Accompanied by his spouse, Stephanie. FOOT EXAM: Date of Last Foot Exam 11/09/2024 Sensory testing performed: sensations diminished Sensory and motor testing performed: strength diminished Pedal pulse taking performed: absent Vascular: DORSALIS PEDIS PULSE: faintly palpable, bilaterally. POSTERIOR TIBIAL PULSE: 0/4, bilaterally. TEMPERATURE GRADIENT: warm to cool. EDEMA: +2 pitting edema of both ankles; dorsum of both feet; remains slightly worse on the left ankle. CAPILLARY FILLING TIME(sec): capillary fill intact bilateral digits less than 3 secs. SHINY ATROPHIC SKIN: present , bilaterally. HAIR GROWTH: sparse. Neurologic: DEEP TENDON REFLEXES: hyperreflexia on the left side; status post CVA. TINELS SIGN: negative along the tarsal canal. VIBRATORY: Absent vibratory sensation at the MTP joints. SHARP SENSATION: tactile and light touch sensation diminished and compromised over the forefoot and digital areas. SEMMES-SAWYER 5.07 MONOFILAMENT: unable to localize over the forefoot and digital areas. Dermatologic: SKIN FINDINGS: Superficial erosive areas left foot as described. HYPERTROPHIC LESION: no forefoot or digital keratotic pressure lesions are noted. HYPERKERATOSIS: mild hyperkeratosis along the rim of bilateral heels; without fissuring. NAIL PATHOLOGY: All digits: None are spared: Toenail dystrophy, thickening, discoloration, elongation, crumbly texture, mild clubbing, subtotal detachment, periungual hyperkeratosis, without drainage. MYCOSIS SCALE: total with debris; multiple digits. INTERDIGITAL MACERATION: clean, dry, non-inflamed. ULCER: Superficial erosive changes dorsal surface of 3rd and 4th digits left foot. Ulcerative changes of the right hallux with direct extension osteomyelitis. Orthopedic: JOINT RANGE OF MOTION: passive ankle dorsiflexion is limited, without clonus or spastic contracture. Otherwise demonstrates functional ankle, subtalar, midtarsal joint range of motion. 1st MTP joint range of motion bilaterally is limited without crepitus. DEFORMITIES: HAV deformity bilateral; flexible and reducible. MUSCLE STRENGTH: no foocal deficits. Radiology: Assessment/Plan Chronic, stable onychodystrophy/mycosis multiple digits. Type II diabetes/IDDM Diabetic peripheral neuropathy (Q9). Diabetic peripheral vasculopathy (Q8). Status post CVA. Status post revascularization with stent placement bilateral lower extremities (03/08/2024). Plan: Clinical Notes: conservative and palliative care measures are preferred, understood and indicated. Diabetic assessment and education relative to the high-risk condition. Recommend emollient therapy daily. Hygiene and skin care measures discussed. Instructions to cleanse erosive areas daily, apply mupirocin 2%. Clean white sock will serve as appropriate dressing. Recommend Tubigrip compression for both lower extremities. Discussed protection of the ulcerative wounds. Patient is scheduled for right hallux amputation later this week (Dr. Hall) Procedure: Toenail Debridement: Aseptic technique: power/manual instrumentation: onychodebridement length and thickness, curretage of offending crypotic margins, caridad-ungual debris, providing effective pressure relief, reducing shoe and digital trauma; reducing potential risks associated with the diabetic neuropathic and vasculopathic conditions, and related complications. This note was created with the assistance of a speech recognition program. While intending to generate a timely document that accurately reflects the content of the visit, no guarantee can be provided that every grammatical or spelling mistake has been or will be identified or corrected. Thank you for your understanding. Alice Cochran DPM documented in this encounter [facility] 11-01-2024 Hospital Discharge instructions Rosi Campbell RN - 11/01/2024 11:58 AM EDT Wound Management Patient Discharge Instructions CALL [phone] for questions regarding care of your wounds. USUAL OFFICE HOURS ARE TUESDAYS MORNINGS AND THURSDAYS(9-2:30) and subject to change without notice PLEASE ARRIVE PRIOR TO APPOINTMENT TIME TO COMPLETE REGISTRATION PROCESS Discharge instructions for the patient's plan of care. Wound care:Right great toe apply silver collagen and dry dressing change every other day. Cleanse with mild soap and water pat dry at dressing change time. Dry dressing to left 3rd toe daily Take antibiotic as directed, Keflex roller picker at [facility] in [place] Call us in a week with what you have decided. Return to clinic Thursday11/22/24 at 11:00AM Next appointment: Future Appointments Date Time Provider Department Center 11/16/2024 1:00 PM [facility] [place] 11/22/2024 11:00 AM Quincy Penn DPM [facility] WND [place] 03/15/2025 1:30 PM Floyd Vee MD [facility] 04/12/2025 2:30 PM Arabella Dyer PA-C [facility] 04/27/2025 1:40 PM Alma Kan MD [facility] 10/09/2025 1:00 PM Arabella Dyer PA-C [facility] Your wound care supplies were ordered from [facility], unless otherwise stated. If you do not receive them in 3 days call them at . SURVEY: You may be receiving a survey from [employer] regarding your visit today. Please complete the survey to enable us to provide the highest quality of care to you and your family. If you cannot score us a very good on any question, please call the office to discuss how we could have made your experience a very good one. Thank you. Lit Helton RN, Rosi Campbell RN and Arianna Guillaume RN REMINDER: You will receive 2 bills for each visit. One is a professional fee charge for the physician and the other is a facility fee for the hospital. documented in this encounter [facility] 11-01-2024 History of Present illness Narrative Diabetic Quality Measure Benchmarks: FSBS: RESULT 130's 0700 Hemoglobin A1c Controlled and is < 8%= YES Lab Results Component Value Date LABA1C 7.5 (H) 10/04/2024 LDL is <100 Yes Blood Pressure is under < 140/90 Yes Tobacco Non use Yes Aspirin Use/blood thinner Yes Information sent to PCP Yes Instructions given to Patient regarding follow up and or education Yes documented in this encounter [facility] 10-04-2024 Hospital Discharge instructions Rosi Campbell RN - 10/04/2024 11:30 AM EDT Wound Management Patient Discharge Instructions CALL [phone] for questions regarding care of your wounds. USUAL OFFICE HOURS ARE TUESDAYS MORNINGS AND THURSDAYS(9-2:30) and subject to change without notice PLEASE ARRIVE PRIOR TO APPOINTMENT TIME TO COMPLETE REGISTRATION PROCESS Discharge instructions for the patient's plan of care. Wound care:Right great toe, 2nd, 3rd toe Cleanse with mild soap and water pat dry at dressing change time. Change dressing every other day. Apply silver collagen to open areas, cover with dry dressing changing every other day. No further physical therapy till further notice. MRI to be done prior to next appointment Call to schedule [phone] Return to clinic Thursday11/01/24 at 11:30pm SURVEY: You may be receiving a survey from [facility] regarding your visit today. Please complete the survey to enable us to provide the highest quality of care to you and your family. If you cannot score us a very good on any question, please call the office to discuss how we could have made your experience a very good one. Thank you. Lit Helton,RN, Rosi CampbellRN and Arianna Guillaume,RN REMINDER: You will receive 2 bills for each visit. One is a professional fee charge for the physician and the other is a facility fee for the hospital. documented in this encounter [facility] 10-04-2024 History of Present illness Narrative Diabetic Quality Measure Benchmarks: FSBS: RESULT 240 0800 Hemoglobin A1c [id number] and is < 8%= YES Lab Results Component Value Date LABA1C 7.7 (H) 02/24/2024 LDL is <100 Yes Blood Pressure is under < 140/90 Yes Tobacco Non use Yes Aspirin Use/blood thinner Yes Information sent to PCP Yes Instructions given to Patient regarding follow up and or education Yes documented in this encounter [facility] 09-06-2024 Hospital Discharge instructions Rosi Campbell RN - 09/06/2024 11:54 AM EDT Wound Management Patient Discharge Instructions CALL [phone] for questions regarding care of your wounds. USUAL OFFICE HOURS ARE TUESDAYS MORNINGS AND THURSDAYS(9-2:30) and subject to change without notice PLEASE ARRIVE PRIOR TO APPOINTMENT TIME TO COMPLETE REGISTRATION PROCESS Discharge instructions for the patient's plan of care. Wound care: Right great toe Xray today Continue with medihoney and dry dressing as before. Return to clinic 10/04/24 at 11:00AM Next appointment: Future Appointments Date Time Provider Department Center 09/14/2024 12:45 PM [facility] 10/04/2024 11:00 AM Quincy Penn DPM [facility] [place] 10/05/2024 1:00 PM Arabella Dyer PA-C [facility] 10/12/2024 11:00 AM [facility] [place] 10/20/2024 2:00 PM Lev Duarte, BOILER HOUSE MECHANIC - COLOR TECHNICIAN [facility] SURVEY: You may be receiving a survey from Kathi Akins regarding your visit today. Please complete the survey to enable us to provide the highest quality of care to you and your family. If you cannot score us a very good on any question, please call the office to discuss how we could have made your experience a very good one. Thank you. Lit Helton,RN, Rosi Campbell,RN and Arianna Guillaume RN REMINDER: You will receive 2 bills for each visit. One is a professional fee charge for the physician and the other is a facility fee for the hospital. documented in this encounter [facility] 09-06-2024 History of Present illness Narrative Diabetic Quality Measure Benchmarks: FSBS: RESULT 213 0800 Hemoglobin A1c Controlled and is < 8%= YES Lab Results Component Value Date LABA1C 7.7 (H) 02/24/2024 LDL is <100 Yes Blood Pressure is under < 140/90 Yes Tobacco Non use Yes Aspirin Use/blood thinner Yes Information sent to PCP Yes Instructions given to Patient regarding follow up and or education Yes documented in this encounter [facility] 08-16-2024 Hospital Discharge instructions Rosi Campbell RN - 08/16/2024 12:04 PM EDT Wound Management Patient Discharge Instructions CALL [phone] for questions regarding care of your wounds. USUAL OFFICE HOURS ARE TUESDAYS MORNINGS AND THURSDAYS(9-2:30) and subject to change without notice PLEASE ARRIVE PRIOR TO APPOINTMENT TIME TO COMPLETE REGISTRATION PROCESS Discharge instructions for the patient's plan of care. Wound care:Right great toe Cleanse with mild soap and water pat dry at dressing change time. Apply medhoney and dry dressing daily. When medhoney gel is gone may use bactroban ointment. Return to clinic Thursday09/06/24 at 11:30AM Continue to wear surgical shoe Xray today Next appointment: Future Appointments Date Time Provider Department Center 08/22/2024 10:45 AM Arabella Dyer PA-C [facility] 09/06/2024 11:30 AM Quincy Penn, DPM [facility] [place] 09/14/2024 12:45 PM Floyd Vee MD [facility] 09/19/2024 2:00 PM Lev Duarte, BOILER HOUSE MECHANIC - COLOR TECHNICIAN [facility] 10/12/2024 11:00 AM [facility] [place] SURVEY: You may be receiving a survey from [facility] regarding your visit today. Please complete the survey to enable us to provide the highest quality of care to you and your family. If you cannot score us a very good on any question, please call the office to discuss how we could have made your experience a very good one. Thank you. Lit Helton RN, Rosi Campbell RN and Arianna Guillaume RN REMINDER: You will receive 2 bills for each visit. One is a professional fee charge for the physician and the other is a facility fee for the hospital. documented in this encounter [facility] 08-16-2024 History of Present illness Narrative Diabetic Quality Measure Benchmarks: FSBS: RESULT 177 0700 Hemoglobin A1c Controlled and is < 8%= YES Lab Results Component Value Date LABA1C 7.7 (H) 02/24/2024 LDL is <100 Yes Blood Pressure is under < 140/90 Yes Tobacco Non use Yes Aspirin Use/blood thinner Yes Information sent to PCP Yes Instructions given to Patient regarding follow up and or education Yes Wound Management Medical Nutrition Therapy Assessment - Chart Review Age- 64 y.o. Sex- male Chief Complaint- Wound Check (Right great toe) Height- Height: 182.9 cm (6') Weight- Weight - Scale: 122 kg (268 lb 15.4 oz) (as of 07/23) IBW- 178 # %IBW- 151 % Body mass index is 36.48 kg/m . - Obese UBW- 269 # %UBW- 100 % Wt Readings from Last 3 Encounters: 08/16/24 122 kg (268 lb 15.4 oz) 07/23/24 122 kg (268 lb 15.4 oz) 06/15/24 122 kg (269 lb) Significant Weight Change- No Unintentional- unknown Estimated Needs- BEE- 2219 kcal Total Calorie Needs- 3759-9620 (18-23 kcal/kg) Total Protein Needs- 97-113 (1.2-1.4 g/kg) Patient Diagnosis Date Cerebrovascular accident (CVA) ([facility]) 2019 CHF (congestive heart failure) ([facility]) Chronic kidney failure, stage 3 (moderate) ([facility]) Chronic pain COVID-19 06/05/2021 Critical limb ischemia of both lower extremities ([facility]) 02/24/2024 Essential hypertension 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 ([facility]) Lymphedema Obstructive sleep apnea on CPAP Type 2 diabetes mellitus without complication ([facility]) Type 2 diabetes mellitus without complication ([facility]) Patient FreeStyle Sarmad 3 Sensor, Insulin Pen Needle, Multiple Vitamins-Minerals, Torsemide, allopurinol, ascorbic acid, aspirin, calcitRIOL, carvedilol, cinacalcet, clopidogrel, docusate sodium, empagliflozin, famotidine, furosemide, insulin glargine (1 unit dial), insulin lispro (1 Unit Dial), losartan, magnesium oxide, metOLazone, mupirocin, nitroGLYCERIN, pantoprazole, polyethylene glycol, potassium chloride, pravastatin, spironolactone, tamsulosin, and traMADol Multivitamin/mineral Use- yes Lab Results Component Value Date/Time GLUCOSE 273 07/22/2024 02:10 PM LABA1C 7.7 02/24/2024 12:56 PM Other Labs - Lab Results Component Value Date VITD25 20.5 (L) 12/05/2022 Glucometer readings at home are running 177 mg/dl per clinic nurse. Diabetes Control- adequate Dietary Recall Reveals- None, chart review only. Medical Nutrition Therapy Discussed- None. Photodocumentation reviewed. Is on a mvi w/minerals to aid wound healing and per historical interactions with patient, avoids salt in home environment. Noted most recent bun/creatinine (127/4.5 respectively, for which he was transferred to [facility]). Nutrition Therapy Recommendations- Recommend obtain current vitamin D status and supplement as indicated. Follow-up- quarterly Electronically signed by Dann Velázquez RDN, LD 08/16/2024, 12:46 PM PQRS Measure: #1(Diabetes: Hemoglobin A1C Poor Control) - no PQRS Measure #130 (Documentation of Current Medications in Medical Record) - yes documented in this encounter [facility] 07-29-2024 Note Admission Informatio n Patient: Piotr Kerr : 1960 Date of Admission: 07/23/2024 09:47:21 Date of Discharge: Code Status: Full Resuscitation PCP: Jorge Pritchett DO Consult: Bita GREENBERG, Werner Rodriguez; Autumn Dukes DPM; Harrison Beltran DO Follow Up with Provider With When Contact Information Akira Ferrer 08/03/2024 09:45 AM EDT [address] [facility], [address] [place] [address] Business (1) Additional Instructions: Appointment Scheduled Harrison Beltran 07/29/2024 02:00 PM EST [address] [place], [place] Additional Instructions: Appointment Scheduled Jorge Pritchett DO Within 1 week [address] [place] [address]- Additional Instructions: Jorge Pritchett In 0 days [address] [place] [address]- Business (1) Additional Instructions: 63-year-old male with past medical history type 2 diabetes, CVA, CAD status post stent, CHRIS, CHF unspecified, CKD who presented to outside facility for feeling unwell was found to be in acute renal failure and was transferred to [facility] Assessment #Dizziness/tinnitus, improving # Constipation likely secondary to narcotic use #Acute renal failure on CKD #Uremia #Lactic acidosis, resolved #Hypocalcemia secondary to secondary hyperparathyroidism #Type 2 diabetes on insulin #History of CVA with residual left-sided weakness #CAD status post stenting on aspirin Plavix #Unspecified CHF #CHRIS #Bilateral lower extremity edema #Diabetic foot wound Plan -Continue Colace and MiraLAX, Dulcolax suppository ordered -EKG done yesterday showed no acute changes, troponins are negative -CT head noncontrast reviewed -Neurology consulted, appreciate recommendations -Continue meclizine -Nephrology consulted, appreciate recommendations, cleared patient for discharge -DC Emily -Podiatry consulted for diabetic foot wound, status post debridement, will follow-up outpatient regarding this -POCT ACHS sliding scale hypoglycemic protocol -DVT prophylaxis with heparin -Discussed with patient following up with his PCP within a week and nephrology in 1 to 3 weeks for repeat blood work for kidney function. Also recommended following up with podiatry. Patient is agreeable with the plan. Discharge Time Spent with Patient: discharge time spent on this patient care and coordination is 35minutes. Medications New Medications Medicine [facility] [address], [place] [id number], [phone] calcitriol (calcitriol 0.5 mcg oral capsule) 0.5 Microgram Oral (given by mouth) every day for 30 Days. Refills: 0. Last Dose: meclizine (meclizine 25 mg oral tablet) 12.5 Milligram Oral (given by mouth) 2 times a day for 14 Days. Refills: 0. Last Dose: Medications That Were Updated - Follow Current Instructions [facility] [address], [place] [id number], [phone] Current: furosemide (Lasix 40 mg oral tablet) 40 Milligram Oral (given by mouth) every day for 30 Days. Refills: 0. Last Dose: Current: losartan (losartan 25 mg oral tablet) 25 Milligram Oral (given by mouth) every day for 30 Days. Refills: 0. Last Dose: Medications That Have Not Changed Other Medications allopurinol (allopurinol 100 mg oral tablet) 2 Tabs Oral (given by mouth) every day. Last Dose: ascorbic acid (Vitamin C 1000 mg oral tablet) 1 Tabs Oral (given by mouth) every day. Last Dose: aspirin (aspirin 81 mg oral capsule) 1 Capsules Oral (given by mouth) every day. Last Dose: carvedilol (carvedilol 12.5 mg oral tablet) 1 Tabs Oral (given by mouth) every day. Last Dose: clopidogrel (clopidogrel 75 mg oral tablet) 1 Tabs Oral (given by mouth) every day. Last Dose: docusate (Colace 100 mg oral capsule) 1 Capsules Oral (given by mouth) every day as needed for constipation. Last Dose: empagliflozin (Jardiance 10 mg oral tablet) 1 Tabs Oral (given by mouth) once a day (in the morning). Last Dose: insulin glargine (Toujeo SoloStar 300 units/mL subcutaneous solution) 60 Units Subcutaneous (under the skin) every day. Last Dose: insulin lispro (Insulin Lispro KwikPen 100 units/mL injectable solution) 16 - 24 units Subcutaneous (under the skin) 3 times a day before meals. Last Dose: magnesium oxide (magnesium oxide 400 mg (241.3 mg elemental magnesium) oral tablet) 1 Tabs Oral (given by mouth) every day. Last Dose: mupirocin topical (mupirocin 2% topical cream) 1 Application Topical (on the skin) every day as needed foot wound. Last Dose: nitroglycerin (nitroglycerin 0.4 mg sublingual tablet) 1 Tabs Sublingual (dissolve (more content not included)... [facility] 07-27-2024 Note Chief Complaint Chronic dizziness and tinnitus Reason for Consultation Evaluate for recurrent dizziness in the setting of chronic renal disease History of Present Illness This is a 63-year-old gentleman with a history of diabetes with associated neuropathy, chronic renal insufficiency followed by Dr. Beltran transferred to [facility] on July 23 because of worsening renal presented to the [facility] in [place] and was weak that labs included a BUN of 127 and a creatinine of 4.8. Nephrology was contacted and he was sent down to [facility] has been under the care of his color weigher and hospitalist. Neurological opinion regarding his dizziness was requested on July 23 BUN 120 creatinine 4.11. Neurological opinion regarding his dizziness was requested. While living in [place], he did have a right CVA, resulting in the left tarsus with the leg more involved he reports 2 to 3 years when he gets out of his wheelchair or when he gets up to have a sensation of spinning that has been slightly increasing since he arrived to the hospital. He has a longstanding history of tinnitus for over 2 decades but no significant hearing loss. Not tried on any medications for dizziness. Neurological input is requested at the time of consultation his head CT had not yet been done. Does take aspirin and pravastatin and Plavix for stroke prevention. Pertinent labs GFR 28 calcium 8.3 phosphorus 4.8 magnesium 2 he has remained alert and oriented. He has had no significant headaches has been no confusion he has been afebrile he is willing to try meclizine initially at 12.5 mg twice daily. Further diagnostic studies will be based on the results of his head CT. The majority of his time in a wheelchair because of his left leg weakness. Following his stroke he did move to [facility] Review of Systems Constitutional: [No fevers, chills, sweats] Eye: [No recent visual problems] ENMT: [No ear pain, nasal congestion, sore throat] tinnitus x 20 years dizziness x 2 years worse over the past week Respiratory: [No shortness of breath, cough] Cardiovascular: [No Chest pain, palpitations, syncope] Gastrointestinal: [No nausea, vomiting, diarrhea] Genitourinary: [No hematuria] Se/Lymph: [Negative for bruising tendency, swollen lymph glands] Endocrine: [Negative for excessive thirst, excessive hunger] Musculoskeletal: [No back pain, neck pain, joint pain, muscle pain, decreased range of motion] Integumentary: [No rash, pruritus, abrasions] Neurologic: [Alert & oriented X 4] CVA approximately 4 years ago affecting the left arm and leg Psychiatric: [No anxiety, depression] Physical Exam Vitals & Measurements T: 36.7 ?C (Oral) TMIN: 36.2 ?C (Oral) TMAX: 36.7 ?C (Oral) HR: 45 (Peripheral) RR: 16 BP: 136/62 SpO2: 97% WT: 118.4 kg WT: 118.4 kg (Dosing) 63-year-old white male well-developed well-nourished alert orient x 3 friendly cooperative for exam H EENT shows the head is normocephalic atraumatic pupils react to light neck is supple cranial nerves II through XII show full extraocular movements jaw and facial strength are normal hearing to sternocleidomastoid strength are normal motor exam shows a left hemiparesis with leg more involved in his arm. Leg strength is approximately 2 MRC arm strength 3 MRC. He is on the right deep tendon reflexes are 1+ right arm 2+ left arm absent both knees and ankles toes are downgoing there is no dysmetria Additional Vitals No qualifying data available. Assessment/Plan 1. NEO (acute kidney injury) 2. HTN (hypertension) 3. DM type 2 causing CKD stage 4 4. Electrolyte abnormality 5. Renal osteodystrophy . Dizziness peripheral in nature. I did add meclizine 12.5 mg twice daily. He has had tinnitus for over 2 decades time spent with patient chart electronic records 70 minutes Orders: meclizine, 12.5 mg, Oral, Tab, BID, First Dose: 07/27/24 15:00:00 EST, Dispense From Location: [facility], 07/27/24 15:00:00 EST Problem List/Past Medical History Ongoing No qualifying data Historical No qualifying data Medications Inpatient acetaminophen, 650 mg, Oral, q6hr, PRN acetaminophen, 650 mg, Oral, q6hr, PRN aspirin, 81 mg, Oral, Daily calcitriol, 0.5 mcg, Oral, Daily carvedilol, 12.5 mg, Oral, Daily clopidogrel, 75 mg, Oral, Daily Colace, 100 mg, Oral, Daily, PRN Dextrose 10% in Water IV Piggyback, 125 mL, IV Piggyback, As Indicated, PRN glucagon, 1 mg, Subcutaneous, As Indicated, PRN heparin, 5000 units= 1 mL, Subcutaneous, q6ll-Vlrppcod Times hydrocodone-acetaminophen 5 mg-325 mg oral tablet, 1 tabs, Oral, q4hr, PRN insulin aspart HIGH dose sliding scale BMI > 30, see comments, Subcutaneous, ACHS insulin glargine, 50 units, Subcutaneous, Daily Jardiance, 10 mg, Oral, Daily Lasix, 40 mg, Oral, Daily losartan, 25 mg, Oral, Daily meclizine, 12.5 mg, Oral, BID MiraLax, 17 g= 1 EA, Oral, Daily, PRN naloxone, 0.4 mg= 1 mL, IV Push, q2min, PRN Normal Saline Flush 0.9% injectable so (more content not included)... [facility] 07-25-2024 Note Reason for Consultat ion right foot ulcer, diabetic History of Present Illness 63-year-old male with type 2 diabetes and neuropathy seen at [facility] for diabetic foot ulcer on the right plantar hallux. The patient reports that the ulcer has been present for several months. He recalls that initially it might have started with him cutting himself. He was previously seen once by Wound Care, who stated that it was stable and since then the patient has been treating the ulcer with the help of his , applying medihoney intermittently. He denies any drainage, redness, or swelling from the site, no pain secondary to neuropathy. Also has peeling, scaling skin to both feet, without any itching or pain to areas. Patient denies recent constitutional symptoms including drainage, redness, or swelling from the foot ulcer site. Patient denies itching or scaling of stasis discoloration on legs. Patient denies any other pedal complaints at this time. Physical Exam Vitals & Measurements T: 36.6 ?C (Oral) TMIN: 36.6 ?C (Oral) TMAX: 36.8 ?C (Oral) HR: 87 (Monitored) RR: 13 BP: 146/67 SpO2: 100% WT: 117.4 kg VASCULAR: Dorsalis pedis pulse is palpable bilateral feet. Posterior tibial pulse is palpable bilateral. Diminished hair growth noted to the feet. Skin temperature is warm to cool from proximal to distal from the tibial tuberosity to the digits. Capillary refill time is less than 3 seconds across all digits to both feet. Non pitting edema noted to bilateral feet. No acute ischemic changes noted. NEUROLOGICAL: Protective sensation is decreased to both feet. + numbness to both feet, denies any burning sensations. DERMATOLOGICAL: Partial thickness ulceration down to dermis, diabetic ulcer, located to right plantar hallux predebridement with 80% granular base, 25%fibrotic base with adherant slough, predebridement measurement 4.3 cm x 3.4 cm x 0.1 cm with minimal serous drainage, no surrounding erythema or edema or malodor, negative probe to bone. Areas of stasis erythema to bilateral feet and lower legs with peeling, scaling skin no increase in warmth noted to BLE. There are no signs of active infection, such as redness, warmth, swelling, or discharge to both feet.Webspaces 1-4 to both feet are clean, dry and intact. There are no hyperkeratotic lesions noted to both feet. MUSCULOSKELETAL: There are no gross structural deformities noted to bilateral feet. There is no pedal amputation noted to both feet. Range of motion (ROM) is within normal limits in the foot and ankle joints, including dorsiflexion, plantarflexion, inversion, and eversion. Muscle strength is graded at a 5/5 across all muscle groups crossing anterior to ankle joint without any weakness. Gait is antalgic, no muscular atrophy noted to both feet. + no pain with palpation of right hallux ulcer. Additional Vitals No qualifying data available. Assessment/Plan Orders: silver sulfADIAZINE topical, 1 fabio, Topical, Cream, Daily, First Dose: 07/26/24 9:00:00 EST, Dispense From Location: [employer], 07/25/24 12:23:00 EST Surgical Shoe/Cast Shoe 1) DM foot ulcer, right plantar hallux, partial thickness, gonzalez grade 1 - ordered hbA1c - Ordered surgical shoe, discussed with pt importance of offloading in healing ulcer - Ordered silvadene to be applied to site daily followed by dry sterile dressing Ulcer debridement: A sterile #11 scapel was utilized to debride 100% of the wound in a sharp, surgical, and excisional manner to right foot. The wound is located on the right plantar hallux. Tissue sharply excised included: caridad-wound hyperkeratotic tissue, fibrotic tissue, non-viable tissue and necrotic tissue. The debridement was performed to reduce the risk of infection, improve granulation tissue, and to promote wound healing and decrease biofilm. Anesthesia was not necessary and deferred by patient due to peripheral neuropathy. The wound was irrigated and bandaged with adaptic, 4x4 coban. Ulcer location: right foot plantar hallux Post debridement size: 4.4 cm x 3.4 cm x 0.2 cm Post debridement wound bed make-up: 100% granular tissue total sq cm debrided: 14.96 sq cm Duration: >6 months Frequency: every 2 weeks Offloading Modalities: recommend surgical shoe Anticipated end point: 8 weeks with debridement and offloading Potential to heal: good if correctly offloaded and proper wound care, medical optimization Goals: promote epithelialization, prevent ulcer. Cx not obtained due to no acute soi , good pulses vasc studies deferred, x rays deferred as ulcer is not deep probing 2) DM with neuropathy - Discussed the importance of daily pedal exams, and that risk of DM foot infection can lead to limb loss. Recommend tight glycemic control. WOUND CARE INSTRUCTIONS: APPLY silvadene to right hallux daily followed by dry sterile dressing, pt to perform at home as well. Continue with surgical shoe for all ambulatory purposes. F/u OP within 2 weeks time. Problem List/Past Medical History Ongoing No qualifyin (more content not included)... [facility] 07-23-2024 Note Reason for Consultat ion severe NEO History of Present Illness 63-year-old male who is well known to the under-signed, with past medical history of advanced renal disease stage IV, type 2 diabetes, CVA, CAD status post stent, CHRIS, CHF unspecified who presented to [facility] for feeling unwell was found to be in acute renal failure, with much worse advanced renal disease. The ED physician noted me and I recommended he be transferred to [facility] for possible SAMPLER FIRST initiation. Most recent labs showed no leukocytosis hemoglobin is 11.3, platelets are normal, mag 1.9 most recent BMP showing potassium 4.6, slight hyponatremia 130, creatinine of 4.5 with a BUN of 127. Patient's creatinine on 07/13/2024 was 2.3 hepatic function relatively unremarkable calcium 7.7 lactic acid was 2.2 UA was negative for UTI he had CT abdomen pelvis no acute process no hydronephrosis noted Patient denies any NSAID use. Does take diuretics. Went to the hospital for nausea, abdominal pain, right shoulder pain. States right shoulder pain is completely resolved. Denies any shortness of breath has had increased swelling in his lower extremities decreased urine output generally feeling unwell. Denies any sick contacts or fever. Review of Systems all other review of systems but as noted above are negative Physical Exam Vitals & Measurements T: 36.9 ?C (Oral) HR: 68 (Monitored) RR: 10 BP: 126/62 SpO2: 100% HT: 182 cm WT: 117.2 kg (Dosing) WT: 117.2 kg BMI: 35.38 HEENT: Normocephalic and with moist mucous membranes CV: Heart with regular rate and rhythm Lungs: Clear to auscultation bilaterally Abdomen: No tenderness to palpation and with normal bowel sounds Lower extremities: No edema Additional Vitals No qualifying data available. Assessment/Plan 1. NEO (acute kidney injury) Patient with a creatinine of 2.3 on 07/13/2024 and presented to outside facility with 4 clinical symptoms consistent with uremia and finding of elevated creatinine level greater than 4. Patient denies having any recent infectious process, denies any nephrotoxic medication use, denies any sick contacts, presents with significant electrolyte abnormalities consistent with azotemia and noted electrolyte abnormalities seen in advanced kidney disease. At this time plan to pursue additional serological studies and medical management. Evaluate for glomerular disease, rule out obstructive nephropathy with a renal ultrasound, monitor for 24-hour urine collection and patient may require renal biopsy if evidence of renal glomerular disease. 2. HTN (hypertension) Chronic baseline history of hypertension was well-managed on patient with use of losartan, furosemide, and spironolactone medications. Plan to hold off on losartan medication at this time and initiate treatment with use of calcium channel jayde nifedipine. 3. DM type 2 causing CKD stage 4 Chronic history of diabetes we will plan to monitor patient's hemoglobin A1c and monitor patient's glucose levels closely. Goal for strict glycemic management to further aid potential renal recovery. 4. Electrolyte abnormality Patient admitted with significant azotemia secondary to acute kidney injury versus chronic kidney disease. Medication reconciliation and plan to avoid use of potassium chloride medication at this time, will hold patient's Jardiance medication as well at this time due to severity of renal dysfunction and indication for use of Jardiance based on renal function. 5. Renal osteodystrophy Elevated intact PTH level consistent with secondary hyperparathyroidism. Medication reconciliation and patient was Cinacalcet 30 mg daily which accounts for his hypocalcemia. Plan to discontinue his Cinacalcet and initiate treatment with Calcitriol 0.5 mcg daily. Orders: calcitriol, 0.5 mcg, Oral, Cap, Daily, First Dose: 07/24/24 9:00:00 EST, Dispense From Location: [employer], 07/23/24 23:40:00 EST Sodium Chloride 0.9% intravenous solution 1,000 mL, 1,000 mL, Soln-IV, IV, 200 mL/hr, Start Date: 07/23/24 23:40:00 EST, 2.37, m2, 07/23/24 23:40:00 EST Renal Function Panel Problem List/Past Medical History Ongoing No qualifying data Historical No qualifying data Medications Inpatient acetaminophen, 650 mg, Oral, q6hr, PRN acetaminophen, 650 mg, Oral, q6hr, PRN aspirin, 81 mg, Oral, Daily carvedilol, 12.5 mg, Oral, Daily clopidogrel, 75 mg, Oral, Daily Colace, 100 mg, Oral, Daily, PRN Dextrose 10% in Water IV Piggyback, 125 mL, IV Piggyback, As Indicated, PRN glucagon, 1 mg, Subcutaneous, As Indicated, PRN heparin, 5000 units= 1 mL, Subcutaneous, [id number] Times hydrocodone-acetaminophen 5 mg-325 mg oral tablet, 1 tabs, Oral, q4hr, PRN insulin aspart, see comments, Subcutaneous, ACHS insulin glargine, 50 units, Subcutaneous, Daily naloxone, 0.4 mg= 1 mL, IV Push, q2min, PRN Normal Saline Flush 0.9% injectable solution, 10 mL, IV Push, As Indicated, PRN Normal Saline Flush 0.9% injectable solution, 10 mL, IV Push, BID nys (more content not included)... [facility] 07-23-2024 Note Assessment/Plan 63-year-old male with past medical history type 2 diabetes, CVA, CAD status post stent, CHRIS, CHF unspecified, CKD who presented to outside facility for feeling unwell was found to be in acute renal failure and was transferred to [facility] #Acute renal failure #Uremia #Lactic acidosis #Hypocalcemia #Type 2 diabetes on insulin #History of CVA with residual left-sided weakness #CAD status post stenting on aspirin Plavix #Unspecified CHF #CHRIS #Bilateral lower extremity edema -Consult nephrology. -Place Diaz. Obtain urine studies. Avoid nephrotoxic agents. Defer diuresis to nephrology -Obtain x-ray and BNP -EKG -Check renal function and electrolytes daily -Maintain on telemetry. Continuous pulse ox -Will obtain lower extremity ultrasound -Stat labs ordered and pending -Med rec is being completed currently. Will resume home medications as appropriate -POCT ACHS sliding scale hypoglycemic protocol -DVT prophylaxis with heparin Code Status: Full Resuscitation History of Present Illness 63-year-old male with past medical history type 2 diabetes, CVA, CAD status post stent, CHRIS, CHF unspecified, CKD who presented to outside facility for feeling unwell was found to be in acute renal failure and was transferred to [facility]. Patient follows with Dr. Thomas. Most recent labs showing no leukocytosis hemoglobin is 11.3 platelets are normal mag 1.9 most recent BMP showing potassium 4.6 slight hyponatremia 130 creatinine of 4.5 with a BUN of 127 patient's creatinine on 07/13/2024 was 2.3 hepatic function relatively unremarkable calcium 7.7 lactic acid was 2.2 UA was negative for UTI he had CT abdomen pelvis no acute process no hydronephrosis noted patient denies any NSAID use. Does take diuretics. Went to the hospital for nausea abdominal pain right shoulder pain. States right shoulder pain is completely resolved. Denies any shortness of breath has had increased swelling in his lower extremities decreased urine output generally feeling unwell. Denies any sick contacts or fever. Review of Systems 10 point review of systems reviewed and negative except as stated in HPI Objective Physical Exam: General: Pleasant and cooperative. No apparent distress. HEENT: Normocephalic, atraumatic, mucus membranes moist. Neck: Trachea midline. Chest: Clear to auscultation bilaterally. No wheezes, rales, or rhonchi. CV: Regular rate and rhythm. No murmur, no gallops, no rubs Abdomen: Abdomen is soft, non-tender, non-distended, no rebound or guarding. Extremities: 2+ bilateral lower extremity edema, peripheral pulses intact Neurological: AAOx3. Patient has chronic left-sided weakness and facial droop after stroke no new deficits Skin: Warm and dry. Vitals & Measurements T: 36.9 ?C (Oral) HT: 182 cm WT: 117.2 kg WT: 117.2 kg (Dosing) BMI: 35.38 Additional Vitals No qualifying data available. Problem List/Past Medical History Ongoing No qualifying data Historical No qualifying data Degree of Malnutrition: No qualifying data available. Medications Inpatient acetaminophen, 650 mg, Oral, q6hr, PRN acetaminophen, 650 mg, Oral, q6hr, PRN Dextrose 10% in Water IV Piggyback, 125 mL, IV Piggyback, As Indicated, PRN glucagon, 1 mg, Subcutaneous, As Indicated, PRN heparin, 5000 units, Subcutaneous, [id number] Times hydrocodone-acetaminophen 5 mg-325 mg oral tablet, 1 tabs, Oral, q4hr, PRN insulin aspart, 1-8 units, Subcutaneous, ACHS naloxone, 0.4 mg= 1 mL, IV Push, q2min, PRN Normal Saline Flush 0.9% injectable solution, 10 mL, IV Push, As Indicated, PRN Normal Saline Flush 0.9% injectable solution, 10 mL, IV Push, BID ondansetron, 4 mg= 2 mL, IV Push, q4hr, PRN Home No active home medications Allergies Farxiga (Itching) azithromycin (Itching) ciprofloxacin (Itching) lisinopril (Itching) Social History Tobacco Never (less than 100 in lifetime) Use:. Lab Results No qualifying data available Microbiology - Current Encounter No qualifying data available. Electronically signed by Yoel Du DO 07/23/24 11:07 EST [facility] 07-12-2024 Evaluation note Diagnosis Onset Date Resolution Cervical spondylosis with radiculopathy acute July 12, 2 025 2:58pm Neck pain on right side acute F ebruary 2024 2:58pm Type 2 diabetes mellitus with hyperglycemia acute June 2:58pm Cardiomyopathy, ischemic acute August 05, 2024 1:25pm Cerebral atherosclerosis acute August 05, 2024 1:25pm Chronic heart failure with preserved ejection fraction (HFpEF) acute August 05 1:25pm Chronic venous insufficiency of lower extremity acute August 05, 2024 1:25pm Diabetes mellitus with peripheral angiopathy acute July 1:25pm Primary hypertension acute 2024 1:25pm Stage 3b chronic kidney disease acute August 05, 2024 1:25pm Type 2 diabetes mellitus with hyperglycemia acute August 05 2 025 1:25pm Cardiomyopathy, ischemic acute September 21, 2024 2:38pm Cerebral atherosclerosis acute September 21, 2024 2:38pm Chronic heart failure with preserved ejection fraction (HFpEF) acute September 21 2:38pm Chronic venous insufficiency of lower extremity acute September 21, 2024 2:38pm Diabetes mellitus with peripheral angiopathy acute August 2:38pm Primary hypertension acute Apr2024 2:38pm Stage 3b chronic kidney disease acute September 21, 2024 2:38pm Type 2 diabetes mellitus with hyperglycemia acute September 21 025 2:38pm [facility] Work Phone: 1(252) 649-310602-18-2025 Hospital Discharge instructions* Discharge Instructions* Rosi Campbell RN - 07/12/2024 11:04 AM EST Wound Management Patient Discharge Instructions CALL [phone] for questions regarding care of your wounds. USUAL OFFICE HOURS ARE TUESDAYS MORNINGS AND THURSDAYS(9-2:30) and subject to change without notice PLEASE ARRIVE PRIOR TO APPOINTMENT TIME TO COMPLETE REGISTRATION PROCESS Discharge instructions for the patient's plan of care. Wound care:Right great toe Cleanse with mild soap and water pat dry at dressing change time. Apply medihoney to area cover with dry dressing daily. When medihoney is gone may use mupriocin ointment. Return to clinic Thursday08/02/24 at 11:30AM Next appointment: Future Appointments Date Time Provider Department Center 07/13/2024 11:00 AM [facility] [place] 08/02/2024 11:30 AM Quincy Penn DPM [facility] [place] 08/16/2024 2:00 PM Alma Kan MD TIFF [facility] 09/14/2024 12:45 PM [facility] V[facility] SUR[facility]Y: You may be receiving a survey from [facility] regarding your visit today. Please complete the survey to enable us to provide the highest quality of care to you and your family. If you cannot score us a very good on any question, please call the office to discuss how we could have made your experience a very good one. Thank you. Lit Helton RN, Rosi Campbell RN and Arianna Guillaume RN REMINDER: You will receive 2 bills for each visit. One is a professional fee charge for the physician and the other is a facility fee for the hospital. [facility] History of Present illness Narrative* Rosi Campbell RN - 07/12/2024 10:30 AM EST Diabetic Quality Measure Benchmarks: FSBS: RESULT 184 0800 Hemoglobin A1c Controlled and is < 8%= YES Lab Results Component Value Date LABA1C 7.7 (H) 02/24/2024 LDL is <100 Yes Blood Pressure is under < 140/90 Yes Tobacco Non use Yes Aspirin Use/blood thinner Yes Information sent to PCP Yes Instructions given to Patient regarding follow up and or education Yes [facility] History of Present illness Narrative* Alice Cochran DPM - 05/26/2024 3:15 PM EST Images from the original note were not included. Subjective Patient ID: Piotr Kerr is a 63 y.o. male who presents for DM Foot Care (PCP: Dr. Pritchett 05/12/24, A1C: 7.4, BS: , SS: 13). HPI HPI Constitutional: Patient presents for diabetic assessment and nail care. Patient is diabetic A1C 6.9 (November 2022). Onychomycosis/Toenail Fungus: Toenail deformity. Location: describes all digits with thickened, deformed and discolored toenails. Duration: chronic toenail deformity, multiple years duration. Severity of symptoms: mild pressure; acknowledging a sensation of numbness involving both feet. Onset: gradual, without known injury or trauma. Status: problematic over the past several months or so. Context: hard to trim, hard to region; self-care is if occult, ineffective and not practical; increasing risk exposure. His spouse and/or family members are unable and hesitant to perform care. Characteristics: discolored, thickened , elongated , pressure , /lifting , crusty; withoutbleeding or drainage. Relieved by: well satisfied with previous palliative care measures. Previous Treatment: palliative care as noted. Risk factors: medical comorbidities. Polypharmacy. Plavix and aspirin therapy. Type II diabetes/IDDM. Diabetic peripheral neuropathy. Diabetic peripheral vasculopathy. Status post CVA. mobility, flexibility and dexterity restraints. Toenail deformity. Digital and/or shoe trauma and related complications. Aggravated by: shoe gear , pressure , walking; catching and snagging on clothing etc.. PCP Dr. Pritchett. Medications Current Outpatient Medications: acetaminophen-codeine (Tylenol w/ Codeine #3) 300-30 MG tablet, TAKE 1 TABLET BY MOUTH EVERY 4 HOURS NEEDED FOR PAIN FOR UP TO 3 DAYS, TAKE LOWEST DOSE POSSIBLE TO MANAGE PAIN Oral for 3 Days, Disp: , Rfl: Alpha-Lipoic Acid 600 MG capsule, Take by mouth., Disp: , Rfl: ascorbic acid (Vitamin C) 1000 MG tablet, Take 1 tablet by mouth in the morning., Disp: , Rfl: aspirin 81 MG EC tablet, Take 1 tablet by mouth in the morning., Disp: , Rfl: Bacillus Coagulans-Inulin (Probiotic) 1-250 BILLION-MG capsule, Probiotic, Disp: , Rfl: carvedilol (Coreg) 6.25 MG tablet, TAKE ONE TABLET BY MOUTH TWICE A DAY (WITH MEALS), Disp: , Rfl: clopidogrel (Plavix) 75 MG tablet, Take 1 tablet by mouth in the morning., Disp: , Rfl: doxycycline (Vibramycin) 100 MG capsule, Take 100 mg by mouth in the morning and 100 mg before bedtime., Disp: , Rfl: empagliflozin (Jardiance) 10 MG, 1 (one) time each day at the same time, Disp: , Rfl: Entresto 24-26 MG tablet, every 12 (twelve) hours, Disp: , Rfl: famotidine (Pepcid) 20 MG tablet, Take 20 mg by mouth in the morning and 20 mg before bedtime., Disp: , Rfl: furosemide (Lasix) 20 MG tablet, Take 20 mg by mouth in the morning., Disp: , Rfl: HumaLOG KWIKPEN 100 UNIT/ML injection, INJECT 10 UNITS VIA SUBCUTANEOUS ROUTE BEFORE EACH MEAL, Disp: , Rfl: Lasix 40 MG tablet, 1 (one) time each day at the same time., Disp: , Rfl: magnesium oxide (Mag-Ox) 400 MG tablet, Take 1 tablet by mouth in the morning., Disp: , Rfl: metOLazone (Zaroxolyn) 2.5 MG tablet, Take 2.5 mg by mouth, Disp: , Rfl: MULTIPLE VITAMINS ESSENTIAL PO, Take by mouth., Disp: , Rfl: nitroglycerin (Nitrostat) 0.4 MG SL tablet, as directed Sublingual, Disp: , Rfl: pantoprazole (ProtoNix) 40 MG EC tablet, Take 40 mg by mouth in the morning. Take before meals. Do not crush, chew, or split.., Disp: , Rfl: polyethylene glycol, PEG, 3350 (Glycolax) 17 GM/SCOOP powder, Take 17 g by mouth., Disp: , Rfl: pravastatin (Pravachol) 20 MG tablet, Take 20 mg by mouth in the evening., Disp: , Rfl: Sensipar 60 MG tablet, 1 (one) time each day at the same time, Disp: , Rfl: tamsulosin (Flomax) 0.4 MG 24 hr capsule, Take 1 capsule by mouth in the morning., Disp: , Rfl: Toujeo SoloStar 300 UNIT/ML injection, INJECT 44 UNITS DAILY SUBCUTANEOUSLY IN THE EVENING, Disp: ,Rfl: zinc 50 MG tablet, 1 (one) time each day at the same time., Disp: , Rfl: Allergies Azithromycin, Lisinopril, and Ciprofloxacin Past Surgical History Past Surgical History: Procedure Laterality Date CORONARY STENT PLACEMENT 05/2021 2 CORONARY STENT PLACEMENT 2010 LYMPH NODE DISSECTION Right 1967 removal -right side of neck OTHER SURGICAL HISTORY 07/15/2022 Greenlight therapy for Prostate PROSTATE SURGERY June 2022 Family History Family History Problem Relation Name Age of Onset Diabetes Mother Bebe Kerr Heart disease Mother Bebe Kerr enlarged heart Hypertension Father Rocky Kerr Objective General Examination: GENERAL EXAMINATION: alert and oriented. Pleasant disposition. Ambulatory with cane assist; wearingslippers. Accompanied by his spouse, Stephanie. FOOT EXAM: Date of Last Foot Exam 05/26/2024 Sensory testing performed: sensations diminished Sensory and motor testing performed: strength diminished Pedal pulse taking performed: absent Vascular: DORSALIS PEDIS PULSE: faintly palpable, bilaterally. POSTERIOR TIBIAL PULSE: 0/4, bilaterally. TEMPERATURE GRADIENT: warm to cool. EDEMA: +3 pitting edema of both ankles; dorsum of both feet; remains slightly worse on the left ankle. CAPILLARY FILLING TIME(sec): capillary fill intact bilateral digits less than 3 secs. SHINY ATROPHIC SKIN: present , bilaterally. HAIR GROWTH: sparse. Neurologic: DEEP TENDON REFLEXES: hyperreflexia on the left side; status post CVA. TINELS SIGN: negative along the tarsal canal. VIBRATORY: Absent vibratory sensation at the MTP joints. SHARP SENSATION: tactile and light touch sensation diminished and compromised over the forefoot anddigital areas. SEMMES-SAWYER 5.07 MONOFILAMENT: unable to localize over the forefoot and digital areas. Dermatologic: SKIN FINDINGS: Superficial erosive areas left foot as described. HYPERTROPHIC LESION: no forefoot or digital keratotic pressure lesions are noted. HYPERKERATOSIS: mild hyperkeratosis along the rim of bilateral heels; without fissuring. NAIL PATHOLOGY: All digits: None are spared: Toenail dystrophy, thickening, discoloration, elongation, crumbly texture, mild clubbing, subtotal detachment, periungual hyperkeratosis, without drainage. MYCOSIS SCALE: total with debris; multiple digits. INTERDIGITAL MACERATION: clean, dry, non-inflamed. ULCER: Superficial stasis ulceration anterior-lateral surface of the left lower extremity. Similar appearing, notably smaller and shallow stasis ulceration on the anterior-medial surface of the rightlower extremity. Several superficial digital wounds are noted. All appear to be clean without evidence of wound infection. There is no evidence of ischemic necrosis. There remain several superficial digital wounds just proximal to the nail plate;. Unremarkable for drainage or clinical evidence of infection. Orthopedic: JOINT RANGE OF MOTION: passive ankle dorsiflexion is limited, without clonus or spastic contracture. Otherwise demonstrates functional ankle, subtalar, midtarsal joint range of motion. 1st MTP joint range of motion bilaterally is limited without crepitus. DEFORMITIES: HAV deformity bilateral; flexible and reducible. MUSCLE STRENGTH: no foocal deficits. Radiology: Assessment/Plan Chronic, stable onychodystrophy/mycosis multiple digits. Type II diabetes/IDDM Diabetic peripheral neuropathy (Q9). Diabetic peripheral vasculopathy (Q8). Status post CVA. Status post revascularization with stent placement bilateral lower extremities (03/08/2024). Plan: Clinical Notes: conservative and palliative care measures are preferred, understood and indicated. Diabetic assessment and education relative to the high-risk condition. Recommend emollient therapy daily. Hygiene and skin care measures discussed. Instructions to cleanse erosive areas daily, apply mupirocin 2%. Clean white sock will serve as appropriate dressing. Recommend Tubigrip compression for both lower extremities. Patient states that he is soon to begin gradient lymphedema pump therapy. Discussed protection of the ulcerative wounds. Procedure: Toenail Debridement: Aseptic technique: power/manual instrumentation: onychodebridement length and thickness, curretage of offending crypotic margins, caridad-ungual debris, providing effective pressure relief, reducing shoe and digital trauma; reducing potential risks associated with the diabetic neuropathic and vasculopathic conditions, and related complications. This note was created with the assistance of a speech recognition program. While intending to generate a timely document that accurately reflects the content of the visit, no guarantee can be provided that every grammatical or spelling mistake has been or will be identified or corrected. Thank you for your understanding. Alice Cochran DPM documented in this [facility]01-02-2025 Instructions* Patient Instructions* Alice Cochran DPM - 05/26/2024 3:15 PM EST As noted documented in this [facility]12-19-2024 Evaluation note* Diagnosis Onset Date Resolution Status Admit Date Cardiomyopathy, ischemic acute May 12, 2024 11:34am Cerebral atherosclerosis acute May 12, 2024 11:34am Chronic heart failure with preserved ejection fraction (HFpEF) acute May 12 11:34am Chronic venous insufficiency of lower extremity acute May 12 11:34am Diabetes mellitus with perip heral angiopathy acute May 12 11:34am Hypercholesterolemia acute [facility] 2023 11:34am Primary hypertension acute De[facility] 2023 11:34am Stage 3b chronic kidney disease acut e May 12, 2024 11:34am Type 2 diabetes mellitus wit h hyperglycemia acute May 12 11:34am [facility] Work Phone: 1(287) 913-989810-30-2024 History of Present illness Narrative* Alice Cochran DPM - 03/23/2024 1:45 PM EDT Images from the original note were not included. Subjective Patient ID: Piotr Kerr is a 63 y.o. male who presents for Wound Care (Piotr Kerr is a 63 y.o. male who presents for FUV wound care. Angiogram on 03/08/2024. BS [address] Pritchett 03/04/2024SS13.). HPI HPI Constitutional: Patient presents for diabetic assessment and nail care. Patient is diabetic A1C 6.9 (November 2022). Onychomycosis/Toenail Fungus: Toenail deformity. Location: describes all digits with thickened, deformed and discolored toenails. Duration: chronic toenail deformity, multiple years duration. Severity of symptoms: mild pressure; acknowledging a sensation of numbness involving both feet. Onset: gradual, without known injury or trauma. Status: problematic over the past several months or so. Context: hard to trim, hard to region; self-care is if occult, ineffective and not practical; increasing risk exposure. His spouse and/or family members are unable and hesitant to perform care. Characteristics: discolored, thickened , elongated , pressure , /lifting , crusty; withoutbleeding or drainage. Relieved by: well satisfied with previous palliative care measures. Previous Treatment: palliative care as noted. Risk factors: medical comorbidities. Polypharmacy. Plavix and aspirin therapy. Type II diabetes/IDDM. Diabetic peripheral neuropathy. Diabetic peripheral vasculopathy. Status post CVA. mobility, flexibility and dexterity restraints. Toenail deformity. Digital and/or shoe trauma and related complications. Aggravated by: shoe gear , pressure , walking; catching and snagging on clothing etc.. PCP Dr. Pritchett. Medications Current Outpatient Medications: acetaminophen-codeine (Tylenol w/ Codeine #3) 300-30 MG tablet, TAKE 1 TABLET BY MOUTH EVERY 4 HOURS NEEDED FOR PAIN FOR UP TO 3 DAYS, TAKE LOWEST DOSE POSSIBLE TO MANAGE PAIN Oral for 3 Days, Disp: , Rfl: Alpha-Lipoic Acid 600 MG capsule, Take by mouth., Disp: , Rfl: ascorbic acid (Vitamin C) 1000 MG tablet, Take 1 tablet by mouth in the morning., Disp: , Rfl: aspirin 81 MG EC tablet, Take 1 tablet by mouth in the morning., Disp: , Rfl: Bacillus Coagulans-Inulin (Probiotic) 1-250 BILLION-MG capsule, Probiotic, Disp: , Rfl: carvedilol (Coreg) 6.25 MG tablet, TAKE ONE TABLET BY MOUTH TWICE A DAY (WITH MEALS), Disp: , Rfl: clopidogrel (Plavix) 75 MG tablet, Take 1 tablet by mouth in the morning., Disp: , Rfl: doxycycline (Vibramycin) 100 MG capsule, Take 100 mg by mouth in the morning and 100 mg before bedtime., Disp: , Rfl: empagliflozin (Jardiance) 10 MG, 1 (one) time each day at the same time, Disp: , Rfl: Entresto 24-26 MG tablet, every 12 (twelve) hours, Disp: , Rfl: famotidine (Pepcid) 20 MG tablet, Take 20 mg by mouth in the morning and 20 mg before bedtime., Disp: , Rfl: furosemide (Lasix) 20 MG tablet, Take 20 mg by mouth in the morning., Disp: , Rfl: HumaLOG KWIKPEN 100 UNIT/ML injection, INJECT 10 UNITS VIA SUBCUTANEOUS ROUTE BEFORE EACH MEAL, Disp: , Rfl: Lasix 40 MG tablet, 1 (one) time each day at the same time., Disp: , Rfl: magnesium oxide (Mag-Ox) 400 MG tablet, Take 1 tablet by mouth in the morning., Disp: , Rfl: metOLazone (Zaroxolyn) 2.5 MG tablet, Take 2.5 mg by mouth, Disp: , Rfl: MULTIPLE VITAMINS ESSENTIAL PO, Take by mouth., Disp: , Rfl: nitroglycerin (Nitrostat) 0.4 MG SL tablet, as directed Sublingual, Disp: , Rfl: polyethylene glycol, PEG, 3350 (Glycolax) 17 GM/SCOOP powder, Take 17 g by mouth., Disp: , Rfl: pravastatin (Pravachol) 20 MG tablet, Take 20 mg by mouth in the evening., Disp: , Rfl: Sensipar 60 MG tablet, 1 (one) time each day at the same time, Disp: , Rfl: tamsulosin (Flomax) 0.4 MG 24 hr capsule, Take 1 capsule by mouth in the morning., Disp: , Rfl: Toujeo SoloStar 300 UNIT/ML injection, INJECT 44 UNITS DAILY SUBCUTANEOUSLY IN THE EVENING, Disp: ,Rfl: zinc 50 MG tablet, 1 (one) time each day at the same time., Disp: , Rfl: Allergies Azithromycin, Lisinopril, and Ciprofloxacin Past Surgical History Past Surgical History: Procedure Laterality Date CORONARY STENT PLACEMENT 05/2021 2 CORONARY STENT PLACEMENT 2010 LYMPH NODE DISSECTION Right 1967 removal -right side of neck OTHER SURGICAL HISTORY 07/15/2022 [facility] therapy for Prostate PROSTATE SURGERY June 2022 Family History Family History Problem Relation Name Age of Onset Diabetes Mother Bebe Kerr Heart disease Mother Bebe Kerr enlarged heart Hypertension Father Rocky Kerr Objective General Examination: GENERAL EXAMINATION: alert and oriented. Pleasant disposition. Ambulatory with cane assist; wearingslippers. Accompanied by his spouse, Stephanie. FOOT EXAM: Date of Last Foot Exam 01/04/2024 Sensory testing performed: sensations diminished Sensory and motor testing performed: strength diminished Pedal pulse taking performed: absent Vascular: DORSALIS PEDIS PULSE: faintly palpable, bilaterally. POSTERIOR TIBIAL PULSE: 0/4, bilaterally. TEMPERATURE GRADIENT: warm to cool. EDEMA: +3 pitting edema of both ankles; dorsum of both feet; remains slightly worse on the left ankle. CAPILLARY FILLING TIME(sec): capillary fill intact bilateral digits less than 3 secs. SHINY ATROPHIC SKIN: present , bilaterally. HAIR GROWTH: sparse. Neurologic: DEEP TENDON REFLEXES: hyperreflexia on the left side; status post CVA. TINELS SIGN: negative along the tarsal canal. VIBRATORY: Absent vibratory sensation at the MTP joints. SHARP SENSATION: tactile and light touch sensation diminished and compromised over the forefoot anddigital areas. SEMMES-SAWYER 5.07 MONOFILAMENT: unable to localize over the forefoot and digital areas. Dermatologic: SKIN FINDINGS: Superficial erosive areas left foot as described. HYPERTROPHIC LESION: no forefoot or digital keratotic pressure lesions are noted. HYPERKERATOSIS: mild hyperkeratosis along the rim of bilateral heels; without fissuring. NAIL PATHOLOGY: All digits: None are spared: Toenail dystrophy, thickening, discoloration, elongation, crumbly texture, mild clubbing, subtotal detachment, periungual hyperkeratosis, without drainage. MYCOSIS SCALE:total with debris; multiple digits. INTERDIGITAL MACERATION: clean, dry, non-inflamed. ULCER: Gonzalez stage I neuropathic/vasculopathic wound dorsal lateral surface of the left midfoot. Rather dry eschar base without active bleeding or drainage. The margins are well adhered without undermining or tunneling. There are no clinical signs of cellulitis or infection. Perfusion of the soft tissue envelope appears improved. Unremarkable for ischemic necrosis. Wound measurements: 03/23/2024: 2.4 x 2.0 x 0.1 cm. There remain several superficial digital wounds just proximal to the nail plate;. Unremarkable for drainage or clinical evidence of infection. Orthopedic: JOINT RANGE OF MOTION: passive ankle dorsiflexion is limited, without clonus or spastic contracture. Otherwise demonstrates functional ankle, subtalar, midtarsal joint range of motion. 1st MTP joint range of motion bilaterally is limited without crepitus. DEFORMITIES: HAV deformity bilateral; flexible and reducible. MUSCLE STRENGTH: no foocal deficits. Radiology: Assessment/Plan Chronic, stable onychodystrophy/mycosis multiple digits. Type II diabetes/IDDM Diabetic peripheral neuropathy (Q9). Diabetic peripheral vasculopathy (Q8). Status post CVA. Status post revascularization with stent placement bilateral lower extremities (03/08/2024). Plan: Clinical Notes: conservative and palliative care measures are preferred, understood and indicated. Diabetic assessment and education relative to the high-risk condition. Recommend emollient therapy daily. Hygiene and skin care measures discussed. Instructions to cleanse erosive areas daily, apply mupirocin 2%. Clean white sock will serve as appropriate dressing. Recommend Tubigrip compression for both lower extremities. Procedure: Toenail Debridement: Aseptic technique: power/manual instrumentation: onychodebridement length and thickness, curretage of offending crypotic margins, caridad-ungual debris, providing effective pressure relief, reducing shoe and digital trauma; reducing potential risks associated with the diabetic neuropathic and vasculopathic conditions, and related complications. This note was created with the assistance of a speech recognition program. While intending to generate a timely document that accurately reflects the content of the visit, no guarantee can be provided that every grammatical or spelling mistake has been or will be identified or corrected. Thank you for your understanding. Alice Cochran DPM documented in this [facility]10-30-2024 Instructions* Patient Instructions* Alice Cochran DPM - 03/23/2024 1:45 PM EDT As noted documented in this [facility]10-06-2024 Hospital Discharge instructions* Discharge Instructions* Gabby Orlando MD - 02/28/2024 7:42 AM EDT Please roller picker the antibiotic at take as prescribed. For pain: Tylenol can be taken every 6 hours. Maximum dose of tylenol in a 24 hour period is 4000mg. You can also take your previously prescribed codeine as needed every 6-8 hours as needed for break through pain not controlled by the tylenol. Please call your pump press operator on Thursday to schedule follow up appointment for re- wrapping of the leg. Return to ED for re-evaluation if you develop fevers, increasing redness, increasing swelling, numbness, tingling, weakness or pain. [facility] History of Present illness Narrative* Froy Reagan RN - 02/27/2024 4:15 PM EDT Discharge education and instructions reviewed with the patient and his spouse. * Froy Reagan RN - 02/27/2024 3:47 PM EDT The patients preferred pharmacy is not open on the weekends, therefore antibiotic was called into [facility] in [place] per patient request. * Jorge Crum - 02/27/2024 2:26 PM EDT Spiritual Services Interventions [id number] 02/27/2024 Jorge Villarealo Harjeet Kerr 63 y.o. year old male Encounter Summary Encounter Overview/Reason: (P) Follow-up Service Provided For: (P) Patient Referral/Consult From: (P) Rounding Last Encounter : (P) 02/27/24 Complexity of Encounter: (P) Moderate Begin Time: (P) 1350 End Time : (P) 1355 Total Time Calculated: (P) 5 min Spiritual/Emotional needs Type: (P) Spiritual Support Assessment/Intervention/Outcome Assessment: (P) Calm Intervention: (P) Discussed belief system/adventist practices/avis, Discussed illness injury and it s impact Outcome: (P) Encouraged, Engaged in conversation * Fred Villegas MD - 02/27/2024 12:27 PM EDT Fred Villegas M.D. Internal Medicine Progress Note Patient: Piotr Kerr Date of Admission: 02/24/2024 12:01 PM Date of Evaluation: 02/27/2024 SUBJECTIVE: Piotr Kerr is a 63 y.o. male who was seen today along with Case Management for follow up of Bilateral lower leg cellulitis. He is feeling better today. His legs are still swollen but improving. He has dressings in place by Dr. Velez yesterday. Sitting up in chair. He denies fever or chills and has been afebrile. He is tolerating diet without any nausea, vomiting or diarrhea. ROS: Constitutional: negative for fevers, and negative for chills. Respiratory: negative for shortness of breath, negative for cough, and negative for wheezing Cardiovascular: negative for chest pain, and negative for palpitations Gastrointestinal: negative for abdominal pain, negative for nausea,negative for vomiting, negative for diarrhea, and negative for constipation All other systems were reviewed with the patient and are negative unless otherwise stated in HPI OBJECTIVE: Vitals: Temp: 97.9 F (36.6 C) BP: (!) 153/68 Respirations: 22 Pulse: 64 SpO2: 96 % on supplemental O2 (wears CPAP overnight but did not tolerate our machine) Weight Wt Readings from Last 3 Encounters: 02/27/24 123.4 kg (272 lb) 02/24/24 123.4 kg (272 lb) 02/15/24 122.9 kg (271 lb) Body mass index is 36.89 kg/m . 24HR INTAKE/OUTPUT: Intake/Output Summary (Last 24 hours) at 02/27/2024 1227 Last data filed at 02/26/2024 1748 Gross per 24 hour Intake 840 ml Output -- Net 840 ml Exam: GEN: Awake, alert and oriented x 3. EYES: EOMI, pupils equal NECK: Supple. No lymphadenopathy. No carotid bruit CVS: regular rate and rhythm, no audible murmur PULM: CTA, no wheezes, rales or rhonchi, no acute respiratory distress ABD: Bowels sounds normal. Abdomen is soft. No distention. no tenderness to palpation. EXT: 2+ edema bilaterally . No calf tenderness. NEURO: Moves all extremities. Motor and sensory are grossly intact SKIN: Superficial wounds over right lopez and left dorsal foot with surrounding erythema (decreasing). Necrotic escar noted on bilateral toes. No drainage currently. DATA: Complete Blood Count: Recent Labs 02/25/24 0545 02/26/24 0555 02/27/24 0600 WBC 6.8 7.4 7.5 RBC 4.30 4.27 4.13* HGB 12.5* 12.3* 12.0* HCT 37.3* 37.5* 36.4* MCV 86.7 87.8 88.1 MCH 29.1 28.8 29.1 MCHC 33.5 32.8 33.0 RDW 12.4 12.6 12.5 PLT 257 245 233 MPV 10.8 11.2 11.1 Recent Blood Glucose levels: Recent Labs 02/24/24 1256 02/25/24 0545 02/26/24 0555 02/27/24 0600 GLUCOSE 170* 116* 189* 221* Comprehensive Metabolic Profile: Recent Labs 02/24/24 1256 02/25/24 0545 02/26/24 0555 02/27/24 0600 NA 138 140 140 135* K 3.2* 3.1* 3.8 4.0 CL 97* 103 102 99 CO2 27 26 27 25 BUN 49* 42* 49* 57* CREATININE 1.7* 1.7* 2.1* 2.1* GLUCOSE 170* 116* 189* 221* CALCIUM 9.6 9.1 9.0 8.8 BILITOT 0.2 -- -- -- ALKPHOS 109 -- -- -- AST 17 -- -- -- ALT 17 -- -- -- Urinalysis: Lab Results Component Value Date COLORU Yellow 02/24/2024 WBCUA 0 TO 2 02/24/2024 RBCUA 0 TO 2 02/24/2024 LEUKOCYTESUR NEGATIVE 02/24/2024 NITRU NEGATIVE 02/24/2024 BACTERIA TRACE (A) 02/24/2024 GLUCOSEU 3+ (A) 02/24/2024 KETUA NEGATIVE 02/24/2024 PROTEINU NEGATIVE 02/24/2024 HGBUR NEGATIVE 02/24/2024 CASTUA NOT REPORTED 07/25/2020 CASTUA NOT REPORTED 07/25/2020 YEAST NOT REPORTED 07/25/2020 HgBA1c: Lab Results Component Value Date/Time LABA1C 7.7 02/24/2024 12:56 PM Microbiology / Cultures: Results Procedure Component Value Units Date/Time Culture, Urine [[id number]] Collected: 02/24/24 1252 Order Status: Completed Specimen: Urine, clean catch Updated: 02/25/241948 Specimen Description .CLEAN CATCH URINE Special Requests Site: Urine Culture NO SIGNIFICANT GROWTH Imaging Data: XR FOOT RIGHT (MIN 3 VIEWS) Result Date: 02/24/2024 EXAMINATION: 3 XRAY VIEWS OF THE RIGHT TIBIA AND FIBULA; THREE XRAY VIEWS OF THE LEFT FOOT; THREE XRAY VIEWS OF THE RIGHT FOOT; 3 XRAY VIEWS OF THE LEFT TIBIA AND FIBULA 02/24/2024 1:13 pm COMPARISON:None. HISTORY: ORDERING SYSTEM PROVIDED HISTORY: pain/swelling anterior wounds/cellulitis TECHNOLOGIST PROVIDED HISTORY: pain/swelling anterior wounds/cellulitis 63-year-old male with pain and swellin g of anterior wound; cellulitis FINDINGS: Right tib fib: Moderate soft tissue edema of the right leg. Atherosclerotic calcification of the vasculature. Tibia and fibula appear intact. Ankle mortise appears intact. Right foot: Osseous alignment is normal. Joint spaces are well maintained. No marginal erosions are identified. No acute fracture or gross dislocation is seen. Bipartite fibular hallux sesamoid. The medial and middle cuneiforms demonstrate proper alignment with the base of the 1st and2nd metatarsals respectively. No tibiotalar joint effusion is seen. Boehler's angle is maintained. Moderate to severe soft tissue swelling of the right foot. Mild plantar calcaneal spur. Atherosclerotic calcification of the vasculature. Left tib fib: Atherosclerotic calcification of the vasculature. Tibia and fibula appear intact. Moderate soft tissue edema of the left leg. Ankle mortise appears intact. Left foot: Osseous alignment is normal. Mild degenerative changes of the midfoot. No marginal erosions are identified. No acute fracture or gross dislocation is seen. The medial and middle cuneiforms demonstrate proper alignment with the base of the 1st and 2nd metatarsals respectively. No tibiotalar joint effusion is seen. Moderate to severe soft tissue swelling of the left foot. Atherosclerotic calcification of the vasculature. Mild plantar calcaneal spur. Remote healed fracture deformity of the proximal phalanx 2nd digit. Boehler's angle is maintained. Right tib fib: 1. Moderate soft tissue edema of the right leg. 2. No acute osseous abnormality. Right foot: 1. Moderate soft tissue swelling of the right foot. 2. No acute fracture or dislocation. Left tib fib: 1. Moderate soft tissue edema of the left leg. 2. No acute osseous abnormality. Left foot: 1. Moderate to severe soft tissue swelling of the left foot. 2. Mild plantar calcaneal spur. Remote healed fracture deformity of the proximal phalanx 2nd digit. 3. Mild degenerative changes as above. No acute osseous abnormality. XR TIBIA FIBULA RIGHT (2 VIEWS) Result Date: 02/24/2024 EXAMINATION: 3 XRAY VIEWS OF THE RIGHT TIBIA AND FIBULA; THREE XRAY VIEWS OF THE LEFT FOOT; THREE XRAY VIEWS OF THE RIGHT FOOT; 3 XRAY VIEWS OF THE LEFT TIBIA AND FIBULA 02/24/2024 1:13 pm COMPARISON:None. HISTORY: ORDERING SYSTEM PROVIDED HISTORY: pain/swelling anterior wounds/cellulitis TECHNOLOGIST PROVIDED HISTORY: pain/swelling anterior wounds/cellulitis 63-year-old male with pain and swellin g of anterior wound; cellulitis FINDINGS: Right tib fib: Moderate soft tissue edema of the right leg. Atherosclerotic calcification of the vasculature. Tibia and fibula appear intact. Ankle mortise appears intact. Right foot: Osseous alignment is normal. Joint spaces are well maintained. No marginal erosions are identified. No acute fracture or gross dislocation is seen. Bipartite fibular hallux sesamoid. The medial and middle cuneiforms demonstrate proper alignment with the base of the 1st and2nd metatarsals respectively. No tibiotalar joint effusion is seen. Boehler's angle is maintained. Moderate to severe soft tissue swelling of the right foot. Mild plantar calcaneal spur. Atherosclerotic calcification of the vasculature. Left tib fib: Atherosclerotic calcification of the vasculature. Tibia and fibula appear intact. Moderate soft tissue edema of the left leg. Ankle mortise appears intact. Left foot: Osseous alignment is normal. Mild degenerative changes of the midfoot. No marginal erosions are identified. No acute fracture or gross dislocation is seen. The medial and middle cuneiforms demonstrate proper alignment with the base of the 1st and 2nd metatarsals respectively. No tibiotalar joint effusion is seen. Moderate to severe soft tissue swelling of the left foot. Atherosclerotic calcification of the vasculature. Mild plantar calcaneal spur. Remote healed fracture deformity of the proximal phalanx 2nd digit. Boehler's angle is maintained. Right tib fib: 1. Moderate soft tissue edema of the right leg. 2. No acute osseous abnormality. Right foot: 1. Moderate soft tissue swelling of the right foot. 2. No acute fracture or dislocation. Left tib fib: 1. Moderate soft tissue edema of the left leg. 2. No acute osseous abnormality. Left foot: 1. Moderate to severe soft tissue swelling of the left foot. 2. Mild plantar calcaneal spur. Remote healed fracture deformity of the proximal phalanx 2nd digit. 3. Mild degenerative changes as above. No acute osseous abnormality. XR FOOT LEFT (MIN 3 VIEWS) Result Date: 02/24/2024 EXAMINATION: 3 XRAY VIEWS OF THE RIGHT TIBIA AND FIBULA; THREE XRAY VIEWS OF THE LEFT FOOT; THREE XRAY VIEWS OF THE RIGHT FOOT; 3 XRAY VIEWS OF THE LEFT TIBIA AND FIBULA 02/24/2024 1:13 pm COMPARISON:None. HISTORY: ORDERING SYSTEM PROVIDED HISTORY: pain/swelling anterior wounds/cellulitis TECHNOLOGIST PROVIDED HISTORY: pain/swelling anterior wounds/cellulitis 63-year-old male with pain and swellin g of anterior wound; cellulitis FINDINGS: Right tib fib: Moderate soft tissue edema of the right leg. Atherosclerotic calcification of the vasculature. Tibia and fibula appear intact. Ankle mortise appears intact. Right foot: Osseous alignment is normal. Joint spaces are well maintained. No marginal erosions are identified. No acute fracture or gross dislocation is seen. Bipartite fibular hallux sesamoid. The medial and middle cuneiforms demonstrate proper alignment with the base of the 1st and2nd metatarsals respectively. No tibiotalar joint effusion is seen. Boehler's angle is maintained. Moderate to severe soft tissue swelling of the right foot. Mild plantar calcaneal spur. Atherosclerotic calcification of the vasculature. Left tib fib: Atherosclerotic calcification of the vasculature. Tibia and fibula appear intact. Moderate soft tissue edema of the left leg. Ankle mortise appears intact. Left foot: Osseous alignment is normal. Mild degenerative changes of the midfoot. No marginal erosions are identified. No acute fracture or gross dislocation is seen. The medial and middle cuneiforms demonstrate proper alignment with the base of the 1st and 2nd metatarsals respectively. No tibiotalar joint effusion is seen. Moderate to severe soft tissue swelling of the left foot. Atherosclerotic calcification of the vasculature. Mild plantar calcaneal spur. Remote healed fracture deformity of the proximal phalanx 2nd digit. Boehler's angle is maintained. Right tib fib: 1. Moderate soft tissue edema of the right leg. 2. No acute osseous abnormality. Right foot: 1. Moderate soft tissue swelling of the right foot. 2. No acute fracture or dislocation. Left tib fib: 1. Moderate soft tissue edema of the left leg. 2. No acute osseous abnormality. Left foot: 1. Moderate to severe soft tissue swelling of the left foot. 2. Mild plantar calcaneal spur. Remote healed fracture deformity of the proximal phalanx 2nd digit. 3. Mild degenerative changes as above. No acute osseous abnormality. XR TIBIA FIBULA LEFT (2 VIEWS) Result Date: 02/24/2024 EXAMINATION: 3 XRAY VIEWS OF THE RIGHT TIBIA AND FIBULA; THREE XRAY VIEWS OF THE LEFT FOOT; THREE XRAY VIEWS OF THE RIGHT FOOT; 3 XRAY VIEWS OF THE LEFT TIBIA AND FIBULA 02/24/2024 1:13 pm COMPARISON:None. HISTORY: ORDERING SYSTEM PROVIDED HISTORY: pain/swelling anterior wounds/cellulitis TECHNOLOGIST PROVIDED HISTORY: pain/swelling anterior wounds/cellulitis 63-year-old male with pain and swellin g of anterior wound; cellulitis FINDINGS: Right tib fib: Moderate soft tissue edema of the right leg. Atherosclerotic calcification of the vasculature. Tibia and fibula appear intact. Ankle mortise appears intact. Right foot: Osseous alignment is normal. Joint spaces are well maintained. No marginal erosions are identified. No acute fracture or gross dislocation is seen. Bipartite fibular hallux sesamoid. The medial and middle cuneiforms demonstrate proper alignment with the base of the 1st and2nd metatarsals respectively. No tibiotalar joint effusion is seen. Boehler's angle is maintained. Moderate to severe soft tissue swelling of the right foot. Mild plantar calcaneal spur. Atherosclerotic calcification of the vasculature. Left tib fib: Atherosclerotic calcification of the vasculature. Tibia and fibula appear intact. Moderate soft tissue edema of the left leg. Ankle mortise appears intact. Left foot: Osseous alignment is normal. Mild degenerative changes of the midfoot. No marginal erosions are identified. No acute fracture or gross dislocation is seen. The medial and middle cuneiforms demonstrate proper alignment with the base of the 1st and 2nd metatarsals respectively. No tibiotalar joint effusion is seen. Moderate to severe soft tissue swelling of the left foot. Atherosclerotic calcification of the vasculature. Mild plantar calcaneal spur. Remote healed fracture deformity of the proximal phalanx 2nd digit. Boehler's angle is maintained. Right tib fib: 1. Moderate soft tissue edema of the right leg. 2. No acute osseous abnormality. Right foot: 1. Moderate soft tissue swelling of the right foot. 2. No acute fracture or dislocation. Left tib fib: 1. Moderate soft tissue edema of the left leg. 2. No acute osseous abnormality. Left foot: 1. Moderate to severe soft tissue swelling of the left foot. 2. Mild plantar calcaneal spur. Remote healed fracture deformity of the proximal phalanx 2nd digit. 3. Mild degenerative changes as above. No acute osseous abnormality. MEDICAL DECISION MAKING: Primary Problem(s): Bilateral lower leg cellulitis Condition is stable Treatment plan: Continue current treatment Podiatry consult appreciated: Dr. Paula's note reviewed Scheduled for LE angioplasty 03/08/[address] Vee Imaging: no further imaging studies ordered today Medications: Continue IV Meropenem Hold IV Lasix due to bumped creatinine Medication Monitoring / High Risk Medications: none CKD stage 3 Creatinine bumped from 1.7 to 2.1 likely due to diuresis Creatinine at baseline (1.5 - 1.7) Treatment plan: Follows with Dr Beltran as outpatient Strict I/O Monitor labs and replace electrolytes Imaging: no further imaging studies ordered today Medications: Hold IV Lasix Continue Jardiance, Calcitrol, Metolazone Type 2 DM Condition is a chronic stable condition Treatment plan: A1C = 7.7% POCT AC/HS Daily BMP Imaging: no further imaging studies ordered today Medications: Continue Toujeo, Jardiance ISS Hypoglycemia Protocol Chronic diastolic CHF Condition is a chronic stable condition Treatment plan: Daily Weight Strict I/O KIRIT wraps for compression Imaging: no further imaging studies ordered today Medications: Continue Jardiance, Metolazone Continue Coreg, Entresto IV Lasix CHRIS on CPAP Condition is a chronic stable condition Treatment plan: Continue home CPAP machine Nutrition status: Obesity, non-morbid Production Helper consult appreciated Hospital Prophylaxis: DVT: Lovenox Stress Ulcer: not indicated MDM Data: Management and/or test interpretation discussed with Cassie Morejon, CARLOZ Consults and Nursing notes were personally reviewed and all current labs and imaging were personally reviewed Disposition: Shared decision making: All test results, treatment options and disposition options were discussed with the patient today Social determinants of health that may impact management: none Code status: Full Code Disposition: Discharge plan is home when OK from podiatry standpoint Fred Villegas MD , M.D. 02/27/2024 12:27 PM * Froy Reagan RN - 02/27/2024 10:32 AM EDT Patient vitals and assessment completed, see flowsheet. Patient A&Ox4, breathing normal. Pt denies pain or any further needs, call light within reach, will continue to monitor. * Dipti Adams PTA - 02/27/2024 8:17 AM EDT Physical Therapy Facility/Department: [facility] Daily Treatment Note NAME: Piotr Kerr : 1960 Date of Service: 02/27/2024 Discharge Recommendations: Continue to assess pending progress, Home with assist PRN Patient Diagnosis(es): The primary encounter diagnosis was Bilateral lower leg cellulitis. A diagnosis of Edema of both lower extremities due to peripheral venous insufficiency was also pertinent to this visit. Assessment Assessment: Pt able to ascend/descend 6 step 2x with use of FWW for support and CGA and gait belt for safety. Verbal cues for proper sequencing provided with good pt carry over noted. Pt amb ~15ft in room with FWW, CGA. Transfers: SBA/CGA. Pt performed seated BLE ther ex: heel/toe raises, marches,and LAQ with breaks provided due to SOB and pt c/o heartburn. Plan Physical Therapy Plan General Plan: 2 times a day 7 days a week Specific Instructions for Next Treatment: once per day on weekends and holidays Restrictions Restrictions/Precautions Restrictions/Precautions: General Precautions, Fall Risk Required Braces or Orthoses?: No Subjective Subjective Subjective: Pt. in bathroom with call light on upon arrival, agreeable to therapy. Pain: Usual LLE pain, also having some heartburn this morning Orientation Overall Orientation Status: Within Normal Limits Cognition Overall Cognitive Status: WNL Objective Bed Mobility Training Bed Mobility Training: No Transfer Training Transfer Training: Yes Overall Level of Assistance: Contact-guard assistance;Assist X1 Interventions: Verbal cues Sit to Stand: Contact-guard assistance;Assist X1 Stand to Sit: Contact-guard assistance;Assist X1 Toilet Transfer: Stand-by assistance;Assist X1 Gait Training Right Side Weight Bearing: Full Left Side Weight Bearing: Full Gait Gait Training: Yes Left Side Weight Bearing: Full Right Side Weight Bearing: Full Overall Level of Assistance: Contact-guard assistance;Assist X1 Distance (ft): 15 Feet Assistive Device: Gait belt;Walker, rolling Interventions: Verbal cues Base of Support: Narrowed Speed/Mila: Shuffled Step Length: Right shortened;Left shortened Gait Abnormalities: Antalgic;Decreased step clearance Stairs - Level of Assistance: Contact-guard assistance;Assist X1 Number of Stairs Trained: 1 (Pt ascended/descended single 6 step 3x) PT Exercises Exercise Treatment: Seated BLE heel/toe raises, marches, LAQ x15ea Safety Devices Type of Devices: All fall risk precautions in place;Call light within reach;Chair alarm in place;Left in chair Goals Short Term Goals Time Frame for Short Term Goals: 20 days Short Term Goal 1: Pt to tolerate 20 minutes of ther ex to facilitate return to PLOF. Short Term Goal 2: Pt to ambulate 150ft with standard cane and SUP with no SOB to increase ambulatory capacity for d/c Short Term Goal 3: Pt to complete transfers with standard cane and SUP to demonstrate increased independacne for safety with d/c. Patient Goals Patient Goals : Pt goal to return home Education Patient Education Education Given To: Patient Education Provided: Plan of Care Education Provided Comments: Educated pt. on HEP, stair training Education Method: Verbal Barriers to Learning: None Education Outcome: Verbalized understanding Therapy Time Individual Concurrent Group Co-treatment Time In 0718 Time Out 0745 Minutes 27 Timed Code Treatment Minutes: 25 Minutes Dipti Adams PTA * Ruth Alcaraz [facility] - 02/26/2024 2:01 PM EDT Images from the original note were not included. [facility] Department of Pharmacy Pharmacy Renal Adjustment Note Piotr Kerr is a 63 y.o. male. Pharmacist assessment of renally cleared medications. Recent Labs 02/24/24 1256 02/25/24 0545 02/26/24 0555 CREATININE 1.7* 1.7* 2.1* Estimated Creatinine Clearance: 48 mL/min (A) (based on SCr of 2.1 mg/dL (H)). Height: Ht Readings from Last 1 Encounters: 02/25/24 1.829 m (6') Weight: Wt Readings from Last 1 Encounters: 02/26/24 122.9 kg (271 lb) The following medication(s) have been adjusted based upon renal function: Famotidine 20mg po BID prn decreased to famotidine 20mg po daily prn for CrCl <50mL/min Thank you, Ruth Alcaraz [facility],02/26/2024,2:00 PM * Dipti Adams PTA - 02/26/2024 12:24 PM EDT Physical Therapy Facility/Department: [facility] Daily Treatment Note NAME: Piotr Kerr : 1960 Date of Service: 02/26/2024 Discharge Recommendations: Continue to assess pending progress, Home with assist PRN Patient Diagnosis(es): The primary encounter diagnosis was Bilateral lower leg cellulitis. A diagnosis of Edema of both lower extremities due to peripheral venous insufficiency was also pertinent to this visit. Assessment Assessment: Pt able to ascend/descend 6 step 3 times with use of FWW for support and CGA and gait belt for safety before requiring seated rest breaks due to fatigue/SOB. Verbal and tactile cues provided for proper sequencing with stair navigation, fair pt carry over noted. Plan to continue stair training to prepare for DC home. Activity Tolerance: Patient tolerated treatment well;Patient limited by endurance Plan Physical Therapy Plan General Plan: 2 times a day 7 days a week Specific Instructions for Next Treatment: once per day on weekends and holidays Current Treatment Recommendations: Strengthening;ROM;Balance training;Functional mobility training;Transfer training;Endurance training;Gait training;Stair training;Neuromuscular re-education;Pain management;Home exercise program;Therapeutic activities Restrictions Restrictions/Precautions Restrictions/Precautions: General Precautions, Fall Risk Required Braces or Orthoses?: No Subjective Subjective Subjective: Pt. in chair upon arrival, agreeable to therapy. Pain: Usual LLE pain Orientation Overall Orientation Status: Within Normal Limits Cognition Overall Cognitive Status: WNL Objective Bed Mobility Training Bed Mobility Training: No Transfer Training Transfer Training: Yes Overall Level of Assistance: Contact-guard assistance;Assist X1 Interventions: Verbal cues Sit to Stand: Contact-guard assistance;Assist X1 Stand to Sit: Contact-guard assistance;Assist X1 Toilet Transfer: Stand-by assistance;Assist X1 Gait Training Right Side Weight Bearing: Full Left Side Weight Bearing: Full Gait Gait Training: Yes Left Side Weight Bearing: Full Right Side Weight Bearing: Full Overall Level of Assistance: Contact-guard assistance;Assist X1 Distance (ft): 10 Feet Assistive Device: Gait belt;Walker, rollator Interventions: Verbal cues Base of Support: Narrowed Speed/Mila: Shuffled Step Length: Right shortened;Left shortened Gait Abnormalities: Antalgic;Decreased step clearance Stairs - Level of Assistance: Contact-guard assistance;Assist X1 Number of Stairs Trained: 1 (Pt completed step overs on single 6 step x3 times) PT Exercises Exercise Treatment: Seated BLE heel/toe raises and LAQ x10ea Safety Devices Type of Devices: All fall risk precautions in place;Call light within reach;Chair alarm in place;Left in chair;Gait belt Goals Short Term Goals Time Frame for Short Term Goals: 20 days Short Term Goal 1: Pt to tolerate 20 minutes of ther ex to facilitate return to PLOF. Short Term Goal 2: Pt to ambulate 150ft with standard cane and SUP with no SOB to increase ambulatory capacity for d/c Short Term Goal 3: Pt to complete transfers with standard cane and SUP to demonstrate increased independacne for safety with d/c. Patient Goals Patient Goals : Pt goal to return home Education Patient Education Education Given To: Patient Education Provided: Plan of Care Education Provided Comments: Educated pt. on HEP, stair training Education Method: Verbal Barriers to Learning: None Education Outcome: Verbalized understanding Therapy Time Individual Concurrent Group Co-treatment Time In 1059 Time Out 1116 Minutes 17 Timed Code Treatment Minutes: 16 Minutes Dipti Adams PTA * Jorge rCum - 02/26/2024 11:37 AM EDT Spiritual Services Interventions 0319/0319-01 02/26/2024 Jorge Crum Piotr Kerr 63 y.o. year old male Encounter Summary Encounter Overview/Reason: (P) Follow-up Service Provided For: (P) Patient Referral/Consult From: (P) Rounding Last Encounter : (P) 02/26/24 Complexity of Encounter: (P) Moderate Begin Time: (P) 1015 End Time : (P) 1020 Total Time Calculated: (P) 5 min Spiritual/Emotional needs Type: (P) Spiritual Support Assessment/Intervention/Outcome Assessment: (P) Calm Intervention: (P) Discussed belief system/adventist practices/avis, Discussed illness injury and it s impact Outcome: (P) Engaged in conversation, Encouraged * Shalini Del Valle PTA - 02/26/2024 8:35 AM EDT Physical Therapy Facility/Department: [facility] Daily Treatment Note NAME: Piotr Kerr : 1960 Date of Service: 02/26/2024 Discharge Recommendations: Continue to assess pending progress, Home with assist PRN Patient Diagnosis(es): The primary encounter diagnosis was Bilateral lower leg cellulitis. A diagnosis of Edema of both lower extremities due to peripheral venous insufficiency was also pertinent to this visit. Assessment Assessment: Pt performed seated and reclined exercises B LE x15 with frequent rest breaks d/t SOB. Pt ambulated 50 ft x1 with FWW and CGA with gait belt with cues for increasing step clearance for fall prevention, pt SOB and required seated rest break. Pt able to ambulate 10 ft with CGA no AD from toliet to chair, therapist educated pt on using FWW at home for fall prevention. Please try stair atnext visit for preperation for possible DC home. Activity Tolerance: Patient tolerated treatment well;Patient limited by endurance Plan Physical Therapy Plan General Plan: 2 times a day 7 days a week Specific Instructions for Next Treatment: once per day on weekends and holidays Current Treatment Recommendations: Strengthening;ROM;Balance training;Functional mobility training;Transfer training;Endurance training;Gait training;Stair training;Neuromuscular re-education;Pain management;Home exercise program;Therapeutic activities Restrictions Restrictions/Precautions Restrictions/Precautions: General Precautions, Fall Risk Required Braces or Orthoses?: No Subjective Subjective Subjective: Pt. in chair upon arrival, agreeable to therapy. Pain: 1-2/10 L LE with rest Orientation Overall Orientation Status: Within Normal Limits Objective Bed Mobility Training Bed Mobility Training: No Transfer Training Transfer Training: Yes Overall Level of Assistance: Contact-guard assistance;Assist X1 Interventions: Verbal cues Sit to Stand: Contact-guard assistance;Assist X1 Stand to Sit: Contact-guard assistance;Assist X1 Toilet Transfer: Stand-by assistance;Assist X1 Gait Training Right Side Weight Bearing: Full Left Side Weight Bearing: Full Gait Gait Training: Yes Left Side Weight Bearing: Full Right Side Weight Bearing: Full Overall Level of Assistance: Contact-guard assistance;Assist X1 Distance (ft): 50 Feet Assistive Device: Gait belt;Walker, rollator Interventions: Verbal cues Base of Support: Narrowed Speed/Mila: Shuffled Step Length: Right shortened;Left shortened Gait Abnormalities: Antalgic;Decreased step clearance PT Exercises Exercise Treatment: Seated and reclined B LE exercises x15 in available planes of motion. Safety Devices Type of Devices: All fall risk precautions in place;Call light within reach;Chair alarm in place;Left in chair;Gait belt Goals Short Term Goals Time Frame for Short Term Goals: 20 days Short Term Goal 1: Pt to tolerate 20 minutes of ther ex to facilitate return to PLOF. Short Term Goal 2: Pt to ambulate 150ft with standard cane and SUP with no SOB to increase ambulatory capacity for d/c Short Term Goal 3: Pt to complete transfers with standard cane and SUP to demonstrate increased independacne for safety with d/c. Patient Goals Patient Goals : Pt goal to return home Education Patient Education Education Given To: Patient Education Provided: Plan of Care Education Method: Verbal Barriers to Learning: None Education Outcome: Verbalized understanding Therapy Time Individual Concurrent Group Co-treatment Time In 0815 Time Out 0847 Minutes 32 Timed Code Treatment Minutes: 32 Minutes Shalini Del Valle PTA * Fred Villegas MD - 02/26/2024 6:54 AM EDT Fred Villegas M.D. Internal Medicine Progress Note Patient: Piotr Kerr Date of Admission: 02/24/2024 12:01 PM Date of Evaluation: 02/26/2024 SUBJECTIVE: Piotr Kerr is a 63 y.o. male who was seen today along with Case Management for follow up of Bilateral lower leg cellulitis. He is feeling better today. His legs are still swollen but improving. Sitting up in chair. He denies fever or chills and has been afebrile. He is tolerating diet without any nausea, vomiting or diarrhea. ROS: Constitutional: negative for fevers, and negative for chills. Respiratory: negative for shortness of breath, negative for cough, and negative for wheezing Cardiovascular: negative for chest pain, and negative for palpitations Gastrointestinal: negative for abdominal pain, negative for nausea,negative for vomiting, negative for diarrhea, and negative for constipation All other systems were reviewed with the patient and are negative unless otherwise stated in HPI OBJECTIVE: Vitals: Temp: 98.3 F (36.8 C) BP: 131/61 Respirations: 20 Pulse: 64 SpO2: 94 % on supplemental O2 (wears CPAP overnight but did not tolerate our machine) Weight Wt Readings from Last 3 Encounters: 02/26/24 122.9 kg (271 lb) 02/24/24 123.4 kg (272 lb) 02/15/24 122.9 kg (271 lb) Body mass index is 36.75 kg/m . 24HR INTAKE/OUTPUT: Intake/Output Summary (Last 24 hours) at 02/26/2024 0654 Last data filed at 02/25/2024 1752 Gross per 24 hour Intake 1720 ml Output -- Net 1720 ml Exam: GEN: Awake, alert and oriented x 3. EYES: EOMI, pupils equal NECK: Supple. No lymphadenopathy. No carotid bruit CVS: regular rate and rhythm, no audible murmur PULM: CTA, no wheezes, rales or rhonchi, no acute respiratory distress ABD: Bowels sounds normal. Abdomen is soft. No distention. no tenderness to palpation. EXT: 2+ edema bilaterally . No calf tenderness. NEURO: Moves all extremities. Motor and sensory are grossly intact SKIN: Superficial wounds over right lopez and left dorsal foot with surrounding erythema (decreasing). Necrotic escar noted on bilateral toes. No drainage currently. DATA: Complete Blood Count: Recent Labs 02/24/24 1256 02/25/24 0545 02/26/24 0555 WBC 7.8 6.8 7.4 RBC 5.09 4.30 4.27 HGB 15.0 12.5* 12.3* HCT 44.1 37.3* 37.5* MCV 86.6 86.7 87.8 MCH 29.5 29.1 28.8 MCHC 34.0 33.5 32.8 RDW 12.4 12.4 12.6 PLT 291 257 245 MPV 10.9 10.8 11.2 Recent Blood Glucose levels: Recent Labs 02/24/24 1256 02/25/24 0545 02/26/24 0555 GLUCOSE 170* 116* 189* Comprehensive Metabolic Profile: Recent Labs 02/24/24 1256 02/25/24 0545 02/26/24 0555 NA 138 140 140 K 3.2* 3.1* 3.8 CL 97* 103 102 CO2 27 26 27 BUN 49* 42* 49* CREATININE 1.7* 1.7* 2.1* GLUCOSE 170* 116* 189* CALCIUM 9.6 9.1 9.0 BILITOT 0.2 -- -- ALKPHOS 109 -- -- AST 17 -- -- ALT 17 -- -- Urinalysis: Lab Results Component Value Date COLORU Yellow 02/24/2024 WBCUA 0 TO 2 02/24/2024 RBCUA 0 TO 2 02/24/2024 LEUKOCYTESUR NEGATIVE 02/24/2024 NITRU NEGATIVE 02/24/2024 BACTERIA TRACE (A) 02/24/2024 GLUCOSEU 3+ (A) 02/24/2024 KETUA NEGATIVE 02/24/2024 PROTEINU NEGATIVE 02/24/2024 HGBUR NEGATIVE 02/24/2024 CASTUA NOT REPORTED 07/25/2020 CASTUA NOT REPORTED 07/25/2020 YEAST NOT REPORTED 07/25/2020 HgBA1c: Lab Results Component Value Date/Time LABA1C 7.7 02/24/2024 12:56 PM Microbiology / Cultures: Results Procedure Component Value Units Date/Time Culture, Urine [[id number]] Collected: 02/24/24 1252 Order Status: Completed Specimen: Urine, clean catch Updated: 02/25/241948 Specimen Description .CLEAN CATCH URINE Special Requests Site: Urine Culture NO SIGNIFICANT GROWTH Imaging Data: XR FOOT RIGHT (MIN 3 VIEWS) Result Date: 02/24/2024 EXAMINATION: 3 XRAY VIEWS OF THE RIGHT TIBIA AND FIBULA; THREE XRAY VIEWS OF THE LEFT FOOT; THREE XRAY VIEWS OF THE RIGHT FOOT; 3 XRAY VIEWS OF THE LEFT TIBIA AND FIBULA 02/24/2024 1:13 pm COMPARISON:None. HISTORY: ORDERING SYSTEM PROVIDED HISTORY: pain/swelling anterior wounds/cellulitis TECHNOLOGIST PROVIDED HISTORY: pain/swelling anterior wounds/cellulitis 63-year-old male with pain and swellin g of anterior wound; cellulitis FINDINGS: Right tib fib: Moderate soft tissue edema of the right leg. Atherosclerotic calcification of the vasculature. Tibia and fibula appear intact. Ankle mortise appears intact. Right foot: Osseous alignment is normal. Joint spaces are well maintained. No marginal erosions are identified. No acute fracture or gross dislocation is seen. Bipartite fibular hallux sesamoid. The medial and middle cuneiforms demonstrate proper alignment with the base of the 1st and2nd metatarsals respectively. No tibiotalar joint effusion is seen. Boehler's angle is maintained. Moderate to severe soft tissue swelling of the right foot. Mild plantar calcaneal spur. Atherosclerotic calcification of the vasculature. Left tib fib: Atherosclerotic calcification of the vasculature. Tibia and fibula appear intact. Moderate soft tissue edema of the left leg. Ankle mortise appears intact. Left foot: Osseous alignment is normal. Mild degenerative changes of the midfoot. No marginal erosions are identified. No acute fracture or gross dislocation is seen. The medial and middle cuneiforms demonstrate proper alignment with the base of the 1st and 2nd metatarsals respectively. No tibiotalar joint effusion is seen. Moderate to severe soft tissue swelling of the left foot. Atherosclerotic calcification of the vasculature. Mild plantar calcaneal spur. Remote healed fracture deformity of the proximal phalanx 2nd digit. Boehler's angle is maintained. Right tib fib: 1. Moderate soft tissue edema of the right leg. 2. No acute osseous abnormality. Right foot: 1. Moderate soft tissue swelling of the right foot. 2. No acute fracture or dislocation. Left tib fib: 1. Moderate soft tissue edema of the left leg. 2. No acute osseous abnormality. Left foot: 1. Moderate to severe soft tissue swelling of the left foot. 2. Mild plantar calcaneal spur. Remote healed fracture deformity of the proximal phalanx 2nd digit. 3. Mild degenerative changes as above. No acute osseous abnormality. XR TIBIA FIBULA RIGHT (2 VIEWS) Result Date: 02/24/2024 EXAMINATION: 3 XRAY VIEWS OF THE RIGHT TIBIA AND FIBULA; THREE XRAY VIEWS OF THE LEFT FOOT; THREE XRAY VIEWS OF THE RIGHT FOOT; 3 XRAY VIEWS OF THE LEFT TIBIA AND FIBULA 02/24/2024 1:13 pm COMPARISON:None. HISTORY: ORDERING SYSTEM PROVIDED HISTORY: pain/swelling anterior wounds/cellulitis TECHNOLOGIST PROVIDED HISTORY: pain/swelling anterior wounds/cellulitis 63-year-old male with pain and swellin g of anterior wound; cellulitis FINDINGS: Right tib fib: Moderate soft tissue edema of the right leg. Atherosclerotic calcification of the vasculature. Tibia and fibula appear intact. Ankle mortise appears intact. Right foot: Osseous alignment is normal. Joint spaces are well maintained. No marginal erosions are identified. No acute fracture or gross dislocation is seen. Bipartite fibular hallux sesamoid. The medial and middle cuneiforms demonstrate proper alignment with the base of the 1st and2nd metatarsals respectively. No tibiotalar joint effusion is seen. Boehler's angle is maintained. Moderate to severe soft tissue swelling of the right foot. Mild plantar calcaneal spur. Atherosclerotic calcification of the vasculature. Left tib fib: Atherosclerotic calcification of the vasculature. Tibia and fibula appear intact. Moderate soft tissue edema of the left leg. Ankle mortise appears intact. Left foot: Osseous alignment is normal. Mild degenerative changes of the midfoot. No marginal erosions are identified. No acute fracture or gross dislocation is seen. The medial and middle cuneiforms demonstrate proper alignment with the base of the 1st and 2nd metatarsals respectively. No tibiotalar joint effusion is seen. Moderate to severe soft tissue swelling of the left foot. Atherosclerotic calcification of the vasculature. Mild plantar calcaneal spur. Remote healed fracture deformity of the proximal phalanx 2nd digit. Boehler's angle is maintained. Right tib fib: 1. Moderate soft tissue edema of the right leg. 2. No acute osseous abnormality. Right foot: 1. Moderate soft tissue swelling of the right foot. 2. No acute fracture or dislocation. Left tib fib: 1. Moderate soft tissue edema of the left leg. 2. No acute osseous abnormality. Left foot: 1. Moderate to severe soft tissue swelling of the left foot. 2. Mild plantar calcaneal spur. Remote healed fracture deformity of the proximal phalanx 2nd digit. 3. Mild degenerative changes as above. No acute osseous abnormality. XR FOOT LEFT (MIN 3 VIEWS) Result Date: 02/24/2024 EXAMINATION: 3 XRAY VIEWS OF THE RIGHT TIBIA AND FIBULA; THREE XRAY VIEWS OF THE LEFT FOOT; THREE XRAY VIEWS OF THE RIGHT FOOT; 3 XRAY VIEWS OF THE LEFT TIBIA AND FIBULA 02/24/2024 1:13 pm COMPARISON:None. HISTORY: ORDERING SYSTEM PROVIDED HISTORY: pain/swelling anterior wounds/cellulitis TECHNOLOGIST PROVIDED HISTORY: pain/swelling anterior wounds/cellulitis 63-year-old male with pain and swellin g of anterior wound; cellulitis FINDINGS: Right tib fib: Moderate soft tissue edema of the right leg. Atherosclerotic calcification of the vasculature. Tibia and fibula appear intact. Ankle mortise appears intact. Right foot: Osseous alignment is normal. Joint spaces are well maintained. No marginal erosions are identified. No acute fracture or gross dislocation is seen. Bipartite fibular hallux sesamoid. The medial and middle cuneiforms demonstrate proper alignment with the base of the 1st and2nd metatarsals respectively. No tibiotalar joint effusion is seen. Boehler's angle is maintained. Moderate to severe soft tissue swelling of the right foot. Mild plantar calcaneal spur. Atherosclerotic calcification of the vasculature. Left tib fib: Atherosclerotic calcification of the vasculature. Tibia and fibula appear intact. Moderate soft tissue edema of the left leg. Ankle mortise appears intact. Left foot: Osseous alignment is normal. Mild degenerative changes of the midfoot. No marginal erosions are identified. No acute fracture or gross dislocation is seen. The medial and middle cuneiforms demonstrate proper alignment with the base of the 1st and 2nd metatarsals respectively. No tibiotalar joint effusion is seen. Moderate to severe soft tissue swelling of the left foot. Atherosclerotic calcification of the vasculature. Mild plantar calcaneal spur. Remote healed fracture deformity of the proximal phalanx 2nd digit. Boehler's angle is maintained. Right tib fib: 1. Moderate soft tissue edema of the right leg. 2. No acute osseous abnormality. Right foot: 1. Moderate soft tissue swelling of the right foot. 2. No acute fracture or dislocation. Left tib fib: 1. Moderate soft tissue edema of the left leg. 2. No acute osseous abnormality. Left foot: 1. Moderate to severe soft tissue swelling of the left foot. 2. Mild plantar calcaneal spur. Remote healed fracture deformity of the proximal phalanx 2nd digit. 3. Mild degenerative changes as above. No acute osseous abnormality. XR TIBIA FIBULA LEFT (2 VIEWS) Result Date: 02/24/2024 EXAMINATION: 3 XRAY VIEWS OF THE RIGHT TIBIA AND FIBULA; THREE XRAY VIEWS OF THE LEFT FOOT; THREE XRAY VIEWS OF THE RIGHT FOOT; 3 XRAY VIEWS OF THE LEFT TIBIA AND FIBULA 02/24/2024 1:13 pm COMPARISON:None. HISTORY: ORDERING SYSTEM PROVIDED HISTORY: pain/swelling anterior wounds/cellulitis TECHNOLOGIST PROVIDED HISTORY: pain/swelling anterior wounds/cellulitis 63-year-old male with pain and swellin g of anterior wound; cellulitis FINDINGS: Right tib fib: Moderate soft tissue edema of the right leg. Atherosclerotic calcification of the vasculature. Tibia and fibula appear intact. Ankle mortise appears intact. Right foot: Osseous alignment is normal. Joint spaces are well maintained. No marginal erosions are identified. No acute fracture or gross dislocation is seen. Bipartite fibular hallux sesamoid. The medial and middle cuneiforms demonstrate proper alignment with the base of the 1st and2nd metatarsals respectively. No tibiotalar joint effusion is seen. Boehler's angle is maintained. Moderate to severe soft tissue swelling of the right foot. Mild plantar calcaneal spur. Atherosclerotic calcification of the vasculature. Left tib fib: Atherosclerotic calcification of the vasculature. Tibia and fibula appear intact. Moderate soft tissue edema of the left leg. Ankle mortise appears intact. Left foot: Osseous alignment is normal. Mild degenerative changes of the midfoot. No marginal erosions are identified. No acute fracture or gross dislocation is seen. The medial and middle cuneiforms demonstrate proper alignment with the base of the 1st and 2nd metatarsals respectively. No tibiotalar joint effusion is seen. Moderate to severe soft tissue swelling of the left foot. Atherosclerotic calcification of the vasculature. Mild plantar calcaneal spur. Remote healed fracture deformity of the proximal phalanx 2nd digit. Boehler's angle is maintained. Right tib fib: 1. Moderate soft tissue edema of the right leg. 2. No acute osseous abnormality. Right foot: 1. Moderate soft tissue swelling of the right foot. 2. No acute fracture or dislocation. Left tib fib: 1. Moderate soft tissue edema of the left leg. 2. No acute osseous abnormality. Left foot: 1. Moderate to severe soft tissue swelling of the left foot. 2. Mild plantar calcaneal spur. Remote healed fracture deformity of the proximal phalanx 2nd digit. 3. Mild degenerative changes as above. No acute osseous abnormality. MEDICAL DECISION MAKING: Primary Problem(s): Bilateral lower leg cellulitis Condition is stable Treatment plan: Continue current treatment Podiatry consult requested Scheduled for LE angioplasty 03/08/[address] Vee Imaging: no further imaging studies ordered today Medications: Continue IV Meropenem Hold IV Lasix due to bumped creatinine Medication Monitoring / High Risk Medications: none CKD stage 3 Creatinine bumped from 1.7 to 2.1 likely due to diuresis Creatinine at baseline (1.5 - 1.7) Treatment plan: Follows with Dr Beltran as outpatient Strict I/O Monitor labs and replace electrolytes Imaging: no further imaging studies ordered today Medications: Hold IV Lasix Continue Jardiance, Calcitrol, Metolazone Type 2 DM Condition is a chronic stable condition Treatment plan: A1C = 7.7% POCT AC/HS Daily BMP Imaging: no further imaging studies ordered today Medications: Continue Toujeo, Jardiance ISS Hypoglycemia Protocol Chronic diastolic CHF Condition is a chronic stable condition Treatment plan: Daily Weight Strict I/O KIRIT wraps for compression Imaging: no further imaging studies ordered today Medications: Continue Jardiance, Metolazone Continue Coreg, Entresto IV Lasix CHRIS on CPAP Condition is a chronic stable condition Treatment plan: Continue home CPAP machine Nutrition status: Obesity, non-morbid Production Helper consult appreciated Hospital Prophylaxis: DVT: Lovenox Stress Ulcer: not indicated MDM Data: Management and/or test interpretation discussed with Cassie Morejon, CARLOZ Consults and Nursing notes were personally reviewed and all current labs and imaging were personally reviewed Disposition: Shared decision making: All test results, treatment options and disposition options were discussed with the patient today Social determinants of health that may impact management: none Code status: Full Code Disposition: Discharge plan is home when OK from podiatry standpoint Fred Villegas MD , M.D. 02/26/2024 6:54 AM * Paradise Albert RN - 02/26/2024 4:48 AM EDT Patient was complaining of heart burn and requested something to help. Tums were ordered and administered. Call light and bedside table remain within reach. Care ongoing. * Paradise Albert RN - 02/25/2024 7:00 PM EDT Vitals and assessment were completed at this time. Powder Blender walked patient through the medications that would be administered tonight and encouraged patient to ask questions about the medications and therapies. Patient's legs remain wrapped and he denies pain at this time. Patient will wear is cpap from home tonight. Call light and bedside table remain within reach. Patient denies needs at this time. Care ongoing. * Jorge Crum - 02/25/2024 11:28 AM EDT Spiritual Services Interventions [id number] 02/25/2024 Jorge Crum Piotr Kerr 63 y.o. year old male Encounter Summary Encounter Overview/Reason: (P) Initial Encounter Service Provided For: (P) Patient Referral/Consult From: (P) Rounding Last Encounter : (P) 02/25/24 Complexity of Encounter: (P) Moderate Begin Time: (P) 1035 End Time : (P) 1045 Total Time Calculated: (P) 10 min Spiritual/Emotional needs Type: (P) Spiritual Support Assessment/Intervention/Outcome Assessment: (P) Calm Intervention: (P) Discussed belief system/adventist practices/avis, Discussed illness injury and it s impact Outcome: (P) Encouraged, Engaged in conversation * Yumiko Montes PTA - 02/25/2024 10:21 AM EDT Physical Therapy Facility/Department: [facility] Daily Treatment Note NAME: Piotr Kerr : 1960 Date of Service: 02/25/2024 Discharge Recommendations: Continue to assess pending progress, Home with assist PRN Patient Diagnosis(es): The primary encounter diagnosis was Bilateral lower leg cellulitis. A diagnosis of Edema of both lower extremities due to peripheral venous insufficiency was also pertinent to this visit. Assessment Assessment: Pt. performed seated and reclined B LE exercises x15 with frequent RB d/t SOB. AAROM L LE for SLR. Pt. ambulated 10ftx1 from bathroom to chair with cane- SBA. Transfers: SBA. Commode use and transfer. Pt. complained of L UE throughout treatment. Activity Tolerance: Patient tolerated treatment well;Patient limited by endurance Plan Physical Therapy Plan General Plan: 2 times a day 7 days a week Specific Instructions for Next Treatment: once per day on weekends and holidays Current Treatment Recommendations: Strengthening;ROM;Balance training;Functional mobility training;Transfer training;Endurance training;Gait training;Stair training;Neuromuscular re-education;Pain management;Home exercise program;Therapeutic activities Restrictions Restrictions/Precautions Restrictions/Precautions: General Precautions, Fall Risk Required Braces or Orthoses?: No Subjective Subjective Subjective: Pt. in bathroom with nurse present, agreeable to therapy. Pain: L UE and L LE does not rate. Orientation Overall Orientation Status: Within Normal Limits Objective Bed Mobility Training Bed Mobility Training: No Transfer Training Transfer Training: Yes Overall Level of Assistance: Stand-by assistance;Assist X1 Interventions: Verbal cues Sit to Stand: Stand-by assistance;Assist X1 Stand to Sit: Stand-by assistance;Assist X1 Toilet Transfer: Stand-by assistance;Assist X1 Gait Gait Training: Yes Overall Level of Assistance: Stand-by assistance;Assist X1 Distance (ft): 10 Feet Assistive Device: Cane, straight Interventions: Verbal cues PT Exercises Exercise Treatment: Seated and reclined B LE exercises x15. Other Specialty Interventions Other Treatments/Modalities: Commode use and transfer. Safety Devices Type of Devices: All fall risk precautions in place;Call light within reach;Left in chair (Pt. leftwith OT after treatment.) Goals Short Term Goals Time Frame for Short Term Goals: 20 days Short Term Goal 1: Pt to tolerate 20 minutes of ther ex to facilitate return to PLOF. Short Term Goal 2: Pt to ambulate 150ft with standard cane and SUP with no SOB to increase ambulatory capacity for d/c Short Term Goal 3: Pt to complete transfers with standard cane and SUP to demonstrate increased independacne for safety with d/c. Patient Goals Patient Goals : Pt goal to return home Education Patient Education Education Given To: Patient Education Provided: Role of Therapy;Plan of Care Education Method: Verbal Barriers to Learning: None Education Outcome: Verbalized understanding Therapy Time Individual Concurrent Group Co-treatment Time In 0851 Time Out 0925 Minutes 34 Treated By: ELAN Kelsey Observed By: Yumiko Montes PTA * Dann Velázquez RD, LD - 02/25/2024 8:37 AM EDT Comprehensive Nutrition Assessment Type and Reason for Visit: Initial Nutrition Recommendations/Plan: Discourage second portions in home environment. Continue avoidance of salt and sodium rich foods. Consider obtaining current vit D value. Malnutrition Assessment: Malnutrition Status: No malnutrition (02/25/24 1140) Context: Acute Illness Findings of the 6 clinical characteristics of malnutrition: Energy Intake: No significant decrease in energy intake Weight Loss: No significant weight loss Body Fat Loss: No significant body fat loss Muscle Mass Loss: No significant muscle mass loss Fluid Accumulation: Moderate to Severe Extremities Forensic Artist Strength: Not Performed Nutrition Assessment: Altered nutrition related labs r/t renal dysfunction, AEB elevated bun/creat over baseline a year ago. Also an increasing A1C from patient reported 7.4 ~3 months ago. Admits to extra portions at meals and perhaps too many carbohydrates. Was appreciative of knowing yesterday's number and felt he could restrain himself from second portions. Wounds appear as blistered areas from cellulitis. No loose stools are reported with antibiotic and he does use yogurt daily at home. Doesn't use salt and states his spouse doesn't cook with salt either. Denies educational needs for anything. Would considerobtaining a follow up vit D level for 20.5 value in 2022. Nutrition Related Findings: +3 BLE edema. Wound Type: Multiple (open blistered areas of cellulitis) Current Nutrition Intake & Therapies: Average Meal Intake: Unable to assess (no PO records) Average Supplements Intake: None Ordered ADULT DIET; Regular; 4 carb choices (60 gm/meal); Low Fat/Low Chol/High Fiber/2 gm Na Anthropometric Measures: Height: 182.9 cm (6') Deport Body Weight (IBW): 178 lbs (81 kg) Admission Body Weight: 125.5 kg (276 lb 9.6 oz) Current Body Weight: 122.9 kg (271 lb), 152.2 % IBW. Weight Source: Bed Scale Current BMI (kg/m2): 36.7 Usual Body Weight: 122.9 kg (271 lb) (recently but had been up to 289# in September) % Weight Change (Calculated): 0 Weight Adjustment For: No Adjustment BMI Categories: Obese Class 2 (BMI 35.0 -39.9) Estimated Daily Nutrient Needs: Energy Requirements Based On: Kcal/kg Weight Used for Energy Requirements: Current Energy (kcal/day): 4400-2232 (15-18) Weight Used for Protein Requirements: Deport Protein (g/day): 97-113 (1.2-1.4) Method Used for Fluid Requirements: 1 ml/kcal Fluid (ml/day): Nutrition Diagnosis: Altered nutrition-related lab values related to renal dysfunction as evidenced by lab values Lab Results Component Value Date NA 140 02/25/2024 K 3.1 (L) 02/25/2024 CL 103 02/25/2024 CO2 26 02/25/2024 BUN 42 (H) 02/25/2024 CREATININE 1.7 (H) 02/25/2024 GLUCOSE 116 (H) 02/25/2024 CALCIUM 9.1 02/25/2024 BILITOT 0.2 02/24/2024 ALKPHOS 109 02/24/2024 AST 17 02/24/2024 ALT 17 02/24/2024 LABGLOM 45 (L) 02/25/2024 GFRAA >60 06/17/2021 Hemoglobin A1C Date Value Ref Range Status 02/24/2024 7.7 (H) 4.0 - 6.0 % Final Lab Results Component Value Date VITD25 20.5 (L) 12/05/2022 Nutrition Interventions: Food and/or Nutrient Delivery: Continue Current Diet Nutrition Education/Counseling: Education initiated Coordination of Nutrition Care: Continue to monitor while inpatient Plan of Care discussed with: patient Goals: Goals: Meet at least 75% of estimated needs Nutrition Monitoring and Evaluation: Behavioral-Environmental Outcomes: None Identified Food/Nutrient Intake Outcomes: Food and Nutrient Intake Physical Signs/Symptoms Outcomes: Biochemical Data, Fluid Status or Edema, Weight Discharge Planning: No discharge needs at this time Dann Velázquez RD, LD Contact: [phone] * Fred Villegas MD - 02/25/2024 7:55 AM EDT Fred Villegas M.D. Internal Medicine Progress Note Patient: Piotr Kerr Date of Admission: 02/24/2024 12:01 PM Date of Evaluation: 02/25/2024 SUBJECTIVE: Piotr Kerr is a 63 y.o. male who was seen today along with Case Management for follow up of Bilateral lower leg cellulitis. He is feeling about the same as yesterday. His legs are still swollen but improving. He denies fever or chills and has been afebrile. He is tolerating diet without any nausea, vomiting or diarrhea. ROS: Constitutional: negative for fevers, and negative for chills. Respiratory: negative for shortness of breath, negative for cough, and negative for wheezing Cardiovascular: negative for chest pain, and negative for palpitations Gastrointestinal: negative for abdominal pain, negative for nausea,negative for vomiting, negative for diarrhea, and negative for constipation All other systems were reviewed with the patient and are negative unless otherwise stated in HPI OBJECTIVE: Vitals: Temp: (!) 96.6 F (35.9 C) BP: (!) 128/56 Respirations: 22 Pulse: 66 SpO2: 94 % on supplemental O2 (wears CPAP overnight but did not tolerate our machine) Weight Wt Readings from Last 3 Encounters: 02/25/24 122.9 kg (271 lb) 02/24/24 123.4 kg (272 lb) 02/15/24 122.9 kg (271 lb) Body mass index is 36.75 kg/m . 24HR INTAKE/OUTPUT: Intake/Output Summary (Last 24 hours) at 02/25/2024 0755 Last data filed at 02/24/2024 1815 Gross per 24 hour Intake 1100 ml Output 825 ml Net 275 ml Exam: GEN: Awake, alert and oriented x 3. EYES: EOMI, pupils equal NECK: Supple. No lymphadenopathy. No carotid bruit CVS: regular rate and rhythm, no audible murmur PULM: CTA, no wheezes, rales or rhonchi, no acute respiratory distress ABD: Bowels sounds normal. Abdomen is soft. No distention. no tenderness to palpation. EXT: 2+ edema bilaterally . No calf tenderness. NEURO: Moves all extremities. Motor and sensory are grossly intact SKIN: Superficial wounds over right lopez and left dorsal foot with surrounding erythema. Necrotic escar noted on bilateral toes. No drainage currently. DATA: Complete Blood Count: Recent Labs 02/24/24 1256 02/25/24 0545 WBC 7.8 6.8 RBC 5.09 4.30 HGB 15.0 12.5* HCT 44.1 37.3* MCV 86.6 86.7 MCH 29.5 29.1 MCHC 34.0 33.5 RDW 12.4 12.4 PLT 291 257 MPV 10.9 10.8 Recent Blood Glucose levels: Recent Labs 02/24/24 1256 02/25/24 0545 GLUCOSE 170* 116* Comprehensive Metabolic Profile: Recent Labs 02/24/24 1256 02/25/24 0545 NA 138 140 K 3.2* 3.1* CL 97* 103 CO2 27 26 BUN 49* 42* CREATININE 1.7* 1.7* GLUCOSE 170* 116* CALCIUM 9.6 9.1 BILITOT 0.2 -- ALKPHOS 109 -- AST 17 -- ALT 17 -- Urinalysis: Lab Results Component Value Date COLORU Yellow 02/24/2024 WBCUA 0 TO 2 02/24/2024 RBCUA 0 TO 2 02/24/2024 LEUKOCYTESUR NEGATIVE 02/24/2024 NITRU NEGATIVE 02/24/2024 BACTERIA TRACE (A) 02/24/2024 GLUCOSEU 3+ (A) 02/24/2024 KETUA NEGATIVE 02/24/2024 PROTEINU NEGATIVE 02/24/2024 HGBUR NEGATIVE 02/24/2024 CASTUA NOT REPORTED 07/25/2020 CASTUA NOT REPORTED 07/25/2020 YEAST NOT REPORTED 07/25/2020 HgBA1c: Lab Results Component Value Date/Time LABA1C 7.7 02/24/2024 12:56 PM Microbiology / Cultures: Results Procedure Component Value Units Date/Time Culture, Urine [[id number]] Collected: 02/24/24 1252 Order Status: Sent Specimen: Urine, clean catch Updated: 02/24/24 1537 Imaging Data: XR FOOT RIGHT (MIN 3 VIEWS) Result Date: 02/24/2024 EXAMINATION: 3 XRAY VIEWS OF THE RIGHT TIBIA AND FIBULA; THREE XRAY VIEWS OF THE LEFT FOOT; THREE XRAY VIEWS OF THE RIGHT FOOT; 3 XRAY VIEWS OF THE LEFT TIBIA AND FIBULA 02/24/2024 1:13 pm COMPARISON:None. HISTORY: ORDERING SYSTEM PROVIDED HISTORY: pain/swelling anterior wounds/cellulitis TECHNOLOGIST PROVIDED HISTORY: pain/swelling anterior wounds/cellulitis 63-year-old male with pain and swellin g of anterior wound; cellulitis FINDINGS: Right tib fib: Moderate soft tissue edema of the right leg. Atherosclerotic calcification of the vasculature. Tibia and fibula appear intact. Ankle mortise appears intact. Right foot: Osseous alignment is normal. Joint spaces are well maintained. No marginal erosions are identified. No acute fracture or gross dislocation is seen. Bipartite fibular hallux sesamoid. The medial and middle cuneiforms demonstrate proper alignment with the base of the 1st and2nd metatarsals respectively. No tibiotalar joint effusion is seen. Boehler's angle is maintained. Moderate to severe soft tissue swelling of the right foot. Mild plantar calcaneal spur. Atherosclerotic calcification of the vasculature. Left tib fib: Atherosclerotic calcification of the vasculature. Tibia and fibula appear intact. Moderate soft tissue edema of the left leg. Ankle mortise appears intact. Left foot: Osseous alignment is normal. Mild degenerative changes of the midfoot. No marginal erosions are identified. No acute fracture or gross dislocation is seen. The medial and middle cuneiforms demonstrate proper alignment with the base of the 1st and 2nd metatarsals respectively. No tibiotalar joint effusion is seen. Moderate to severe soft tissue swelling of the left foot. Atherosclerotic calcification of the vasculature. Mild plantar calcaneal spur. Remote healed fracture deformity of the proximal phalanx 2nd digit. Boehler's angle is maintained. Right tib fib: 1. Moderate soft tissue edema of the right leg. 2. No acute osseous abnormality. Right foot: 1. Moderate soft tissue swelling of the right foot. 2. No acute fracture or dislocation. Left tib fib: 1. Moderate soft tissue edema of the left leg. 2. No acute osseous abnormality. Left foot: 1. Moderate to severe soft tissue swelling of the left foot. 2. Mild plantar calcaneal spur. Remote healed fracture deformity of the proximal phalanx 2nd digit. 3. Mild degenerative changes as above. No acute osseous abnormality. XR TIBIA FIBULA RIGHT (2 VIEWS) Result Date: 02/24/2024 EXAMINATION: 3 XRAY VIEWS OF THE RIGHT TIBIA AND FIBULA; THREE XRAY VIEWS OF THE LEFT FOOT; THREE XRAY VIEWS OF THE RIGHT FOOT; 3 XRAY VIEWS OF THE LEFT TIBIA AND FIBULA 02/24/2024 1:13 pm COMPARISON:None. HISTORY: ORDERING SYSTEM PROVIDED HISTORY: pain/swelling anterior wounds/cellulitis TECHNOLOGIST PROVIDED HISTORY: pain/swelling anterior wounds/cellulitis 63-year-old male with pain and swellin g of anterior wound; cellulitis FINDINGS: Right tib fib: Moderate soft tissue edema of the right leg. Atherosclerotic calcification of the vasculature. Tibia and fibula appear intact. Ankle mortise appears intact. Right foot: Osseous alignment is normal. Joint spaces are well maintained. No marginal erosions are identified. No acute fracture or gross dislocation is seen. Bipartite fibular hallux sesamoid. The medial and middle cuneiforms demonstrate proper alignment with the base of the 1st and2nd metatarsals respectively. No tibiotalar joint effusion is seen. Boehler's angle is maintained. Moderate to severe soft tissue swelling of the right foot. Mild plantar calcaneal spur. Atherosclerotic calcification of the vasculature. Left tib fib: Atherosclerotic calcification of the vasculature. Tibia and fibula appear intact. Moderate soft tissue edema of the left leg. Ankle mortise appears intact. Left foot: Osseous alignment is normal. Mild degenerative changes of the midfoot. No marginal erosions are identified. No acute fracture or gross dislocation is seen. The medial and middle cuneiforms demonstrate proper alignment with the base of the 1st and 2nd metatarsals respectively. No tibiotalar joint effusion is seen. Moderate to severe soft tissue swelling of the left foot. Atherosclerotic calcification of the vasculature. Mild plantar calcaneal spur. Remote healed fracture deformity of the proximal phalanx 2nd digit. Boehler's angle is maintained. Right tib fib: 1. Moderate soft tissue edema of the right leg. 2. No acute osseous abnormality. Right foot: 1. Moderate soft tissue swelling of the right foot. 2. No acute fracture or dislocation. Left tib fib: 1. Moderate soft tissue edema of the left leg. 2. No acute osseous abnormality. Left foot: 1. Moderate to severe soft tissue swelling of the left foot. 2. Mild plantar calcaneal spur. Remote healed fracture deformity of the proximal phalanx 2nd digit. 3. Mild degenerative changes as above. No acute osseous abnormality. XR FOOT LEFT (MIN 3 VIEWS) Result Date: 02/24/2024 EXAMINATION: 3 XRAY VIEWS OF THE RIGHT TIBIA AND FIBULA; THREE XRAY VIEWS OF THE LEFT FOOT; THREE XRAY VIEWS OF THE RIGHT FOOT; 3 XRAY VIEWS OF THE LEFT TIBIA AND FIBULA 02/24/2024 1:13 pm COMPARISON:None. HISTORY: ORDERING SYSTEM PROVIDED HISTORY: pain/swelling anterior wounds/cellulitis TECHNOLOGIST PROVIDED HISTORY: pain/swelling anterior wounds/cellulitis 63-year-old male with pain and swellin g of anterior wound; cellulitis FINDINGS: Right tib fib: Moderate soft tissue edema of the right leg. Atherosclerotic calcification of the vasculature. Tibia and fibula appear intact. Ankle mortise appears intact. Right foot: Osseous alignment is normal. Joint spaces are well maintained. No marginal erosions are identified. No acute fracture or gross dislocation is seen. Bipartite fibular hallux sesamoid. The medial and middle cuneiforms demonstrate proper alignment with the base of the 1st and2nd metatarsals respectively. No tibiotalar joint effusion is seen. Boehler's angle is maintained. Moderate to severe soft tissue swelling of the right foot. Mild plantar calcaneal spur. Atherosclerotic calcification of the vasculature. Left tib fib: Atherosclerotic calcification of the vasculature. Tibia and fibula appear intact. Moderate soft tissue edema of the left leg. Ankle mortise appears intact. Left foot: Osseous alignment is normal. Mild degenerative changes of the midfoot. No marginal erosions are identified. No acute fracture or gross dislocation is seen. The medial and middle cuneiforms demonstrate proper alignment with the base of the 1st and 2nd metatarsals respectively. No tibiotalar joint effusion is seen. Moderate to severe soft tissue swelling of the left foot. Atherosclerotic calcification of the vasculature. Mild plantar calcaneal spur. Remote healed fracture deformity of the proximal phalanx 2nd digit. Boehler's angle is maintained. Right tib fib: 1. Moderate soft tissue edema of the right leg. 2. No acute osseous abnormality. Right foot: 1. Moderate soft tissue swelling of the right foot. 2. No acute fracture or dislocation. Left tib fib: 1. Moderate soft tissue edema of the left leg. 2. No acute osseous abnormality. Left foot: 1. Moderate to severe soft tissue swelling of the left foot. 2. Mild plantar calcaneal spur. Remote healed fracture deformity of the proximal phalanx 2nd digit. 3. Mild degenerative changes as above. No acute osseous abnormality. XR TIBIA FIBULA LEFT (2 VIEWS) Result Date: 02/24/2024 EXAMINATION: 3 XRAY VIEWS OF THE RIGHT TIBIA AND FIBULA; THREE XRAY VIEWS OF THE LEFT FOOT; THREE XRAY VIEWS OF THE RIGHT FOOT; 3 XRAY VIEWS OF THE LEFT TIBIA AND FIBULA 02/24/2024 1:13 pm COMPARISON:None. HISTORY: ORDERING SYSTEM PROVIDED HISTORY: pain/swelling anterior wounds/cellulitis TECHNOLOGIST PROVIDED HISTORY: pain/swelling anterior wounds/cellulitis 63-year-old male with pain and swellin g of anterior wound; cellulitis FINDINGS: Right tib fib: Moderate soft tissue edema of the right leg. Atherosclerotic calcification of the vasculature. Tibia and fibula appear intact. Ankle mortise appears intact. Right foot: Osseous alignment is normal. Joint spaces are well maintained. No marginal erosions are identified. No acute fracture or gross dislocation is seen. Bipartite fibular hallux sesamoid. The medial and middle cuneiforms demonstrate proper alignment with the base of the 1st and2nd metatarsals respectively. No tibiotalar joint effusion is seen. Boehler's angle is maintained. Moderate to severe soft tissue swelling of the right foot. Mild plantar calcaneal spur. Atherosclerotic calcification of the vasculature. Left tib fib: Atherosclerotic calcification of the vasculature. Tibia and fibula appear intact. Moderate soft tissue edema of the left leg. Ankle mortise appears intact. Left foot: Osseous alignment is normal. Mild degenerative changes of the midfoot. No marginal erosions are identified. No acute fracture or gross dislocation is seen. The medial and middle cuneiforms demonstrate proper alignment with the base of the 1st and 2nd metatarsals respectively. No tibiotalar joint effusion is seen. Moderate to severe soft tissue swelling of the left foot. Atherosclerotic calcification of the vasculature. Mild plantar calcaneal spur. Remote healed fracture deformity of the proximal phalanx 2nd digit. Boehler's angle is maintained. Right tib fib: 1. Moderate soft tissue edema of the right leg. 2. No acute osseous abnormality. Right foot: 1. Moderate soft tissue swelling of the right foot. 2. No acute fracture or dislocation. Left tib fib: 1. Moderate soft tissue edema of the left leg. 2. No acute osseous abnormality. Left foot: 1. Moderate to severe soft tissue swelling of the left foot. 2. Mild plantar calcaneal spur. Remote healed fracture deformity of the proximal phalanx 2nd digit. 3. Mild degenerative changes as above. No acute osseous abnormality. MEDICAL DECISION MAKING: Primary Problem(s): Bilateral lower leg cellulitis Condition is stable Treatment plan: Continue current treatment Podiatry consult appreciated Scheduled for LE angioplasty 03/08/[address] Vee Imaging: no further imaging studies ordered today Medications: Continue IV Meropenem Continue IV Lasix Medication Monitoring / High Risk Medications: none CKD Condition is a chronic stable condition Creatinine at baseline (1.5 - 1.7) Treatment plan: Follows with Dr Beltran as outpatient Strict I/O Monitor labs and replace electrolytes Imaging: no further imaging studies ordered today Medications: Continue IV Lasix Continue Jardiance, Calcitrol, Metolazone Type 2 DM Condition is a chronic stable condition Treatment plan: A1C = 7.7% POCT AC/HS Daily BMP Imaging: no further imaging studies ordered today Medications: Continue Toujeo, Jardiance ISS Hypoglycemia Protocol Chronic CHF Condition is a chronic stable condition Treatment plan: Daily Weight Strict I/O KIRIT wraps for compression Imaging: no further imaging studies ordered today Medications: Continue Jardiance, Metolazone Continue Coreg, Entresto IV Lasix CHRIS Condition is a chronic stable condition Treatment plan: to bring in home CPAP Nutrition status: Obesity, non-morbid Production Helper consult appreciated Hospital Prophylaxis: DVT: Lovenox Stress Ulcer: not indicated MDM Data: Management and/or test interpretation discussed with Cassie Morejon CNP Consults and Nursing notes were personally reviewed and all current labs and imaging were personally reviewed Disposition: Shared decision making: All test results, treatment options and disposition options were discussed with the patient today Social determinants of health that may impact management: none Code status: Full Code Disposition: Discharge plan is home when treatment goals are met Fred Villegas MD , M.D. 02/25/2024 7:55 AM * Chikis Carvajal RN - 02/25/2024 7:09 AM EDT Vitals and assessment completed, see chart. Patient a&o x4, reports pain in right shoulder, Tylenol given, bilateral legs wrapped with kirit, pedal pulses via doppler, pt wishes to remain on 2L while resting. Fall precautions in place, care ongoing. * Paradise Albert RN - 02/25/2024 12:54 AM EDT Patient does not want to stay on his cpap so he will be on 2L overnight for his sleep apnea. Respiratory will be made aware. * Paradise Albert RN - 02/24/2024 11:45 PM EDT Powder Blender rewraped patient's legs and put the bed needlemaker on the bed. Patient also requested to use the hospital cpap machine as he does not have his from home. New order received. Patient is aware respiratory will be in to set it up. * Paradise Albert RN - 02/24/2024 7:15 PM EDT Vitals and assessment were completed at this time. Powder Blender walked patient through the medications that would be administered tonight and encouraged patient to ask questions about the medications and therapies. Powder Blender redressed patient's BLL kirit wraps. Call light and bedside table remain within reach. Patient denies needs at this time. Care ongoing. * Yumiko Sarabia - 02/24/2024 5:37 PM EDT Powder Blender called to bring patients home medication * Yumiko Sarabia - 02/24/2024 3:58 PM EDT Perfect serve sent to Dr Paula at this time * Bette Carvalho RPH - 02/24/2024 3:34 PM EDT Pharmacist Review and Automatic Dose Adjustment of Prophylactic Enoxaparin Reviewed reason(s) for admission/hospital problem list The reviewing pharmacist has made an adjustment to the ordered enoxaparin dose or converted to UFH per the approved [facility] protocol and table as identified below. Piotr Kerr is a 63 y.o. male. Recent Labs 02/24/24 1256 CREATININE 1.7* Estimated Creatinine Clearance: 60 mL/min (A) (based on SCr of 1.7 mg/dL (H)). Recent Labs 02/24/24 1256 HGB 15.0 HCT 44.1 PLT 291 No results for input(s): INR in the last 72 hours. Height: Ht Readings from Last 1 Encounters: 02/24/24 1.829 m (6') Weight: Wt Readings from Last 1 Encounters: 02/24/24 125.5 kg (276 lb 9.6 oz) Plan: Based upon the patient's weight and renal function Ordered: Enoxaparin 40mg SUBQ Daily Changed/converted to New Order: Enoxaparin 30mg SUBQ BID Thank you, Bette Carvalho RPH 02/24/2024, 3:32 PM * Yumiko Sarabia - 02/24/2024 3:26 PM EDT Patient arrived to room 319 from [facility]. Report received from CASTING ASSOCIATE. VS and assessment completed. Patient denies pain. Plan of care gone over with patient and spouse. Compression kirit wraps place on bilateral legs. Pictures taken of BLE and placed in charts. [facility] History of Present illness Narrative* Alice Cosby Mary, DPM - 02/17/2024 9:45 AM EDT Images from the original note were not included. Subjective Patient ID: Piotr Kerr is a 63 y.o. male who presents for Wound Care ( Piotr Kerr is a 63 y.o. male who presents for wound care. Patient continues Doxycycline, Augmentin and applying Bactroban daily. Patient had a Doppler done 02/15/24, with Dr. Duncan, is scheduled for Angiogram 03/08/2024. BS [address] Pritchett 02/03/2024 SS13). HPI Follow-up assessment: Multiple mixed vascular wounds involving both feet. Accompanied by his spouse, Stephanie. Remains on doxycycline and Augmentin therapy; well tolerated. Reports good compliance with daily care measures. 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 Scheduled appointment for invasive procedure on or about03/08/[address] Duncan. Risk factors: medical comorbidities. Polypharmacy. Plavix and aspirin therapy. Type II diabetes/IDDM. Diabetic peripheral neuropathy. Diabetic peripheral vasculopathy. Status post CVA. mobility, flexibility and dexterity restraints. Toenail deformity. Digital and/or shoe trauma and related complications. PCP Dr. Pritchett. Medications Current Outpatient Medications: metOLazone (Zaroxolyn) 2.5 MG tablet, Take 2.5 mg by mouth, Disp: , Rfl: acetaminophen-codeine (Tylenol w/ Codeine #3) 300-30 MG tablet, TAKE 1 TABLET BY MOUTH EVERY 4 HOURS NEEDED FOR PAIN FOR UP TO 3 DAYS, TAKE LOWEST DOSE POSSIBLE TO MANAGE PAIN Oral for 3 Days, Disp: , Rfl: Alpha-Lipoic Acid 600 MG capsule, Take by mouth., Disp: , Rfl: ascorbic acid (Vitamin C) 1000 MG tablet, Take 1 tablet by mouth in the morning., Disp: , Rfl: aspirin 81 MG EC tablet, Take 1 tablet by mouth in the morning., Disp: , Rfl: Bacillus Coagulans-Inulin (Probiotic) 1-250 BILLION-MG capsule, Probiotic, Disp: , Rfl: carvedilol (Coreg) 6.25 MG tablet, TAKE ONE TABLET BY MOUTH TWICE A DAY (WITH MEALS), Disp: , Rfl: clopidogrel (Plavix) 75 MG tablet, Take 1 tablet by mouth in the morning., Disp: , Rfl: doxycycline (Vibramycin) 100 MG capsule, Take 100 mg by mouth in the morning and 100 mg before bedtime., Disp: , Rfl: empagliflozin (Jardiance) 10 MG, 1 (one) time each day at the same time, Disp: , Rfl: Entresto 24-26 MG tablet, every 12 (twelve) hours, Disp: , Rfl: famotidine (Pepcid) 20 MG tablet, Take 20 mg by mouth in the morning and 20 mg before bedtime., Disp: , Rfl: furosemide (Lasix) 20 MG tablet, Take 20 mg by mouth in the morning., Disp: , Rfl: HumaLOG KWIKPEN 100 UNIT/ML injection, INJECT 10 UNITS VIA SUBCUTANEOUS ROUTE BEFORE EACH MEAL, Disp: , Rfl: Lasix 40 MG tablet, 1 (one) time each day at the same time., Disp: , Rfl: magnesium oxide (Mag-Ox) 400 MG tablet, Take 1 tablet by mouth in the morning., Disp: , Rfl: MULTIPLE VITAMINS ESSENTIAL PO, Take by mouth., Disp: , Rfl: nitroglycerin (Nitrostat) 0.4 MG SL tablet, as directed Sublingual, Disp: , Rfl: polyethylene glycol, PEG, 3350 (Glycolax) 17 GM/SCOOP powder, Take 17 g by mouth., Disp: , Rfl: pravastatin (Pravachol) 20 MG tablet, Take 20 mg by mouth in the evening., Disp: , Rfl: Sensipar 60 MG tablet, 1 (one) time each day at the same time, Disp: , Rfl: tamsulosin (Flomax) 0.4 MG 24 hr capsule, Take 1 capsule by mouth in the morning., Disp: , Rfl: Toujeo SoloStar 300 UNIT/ML injection, INJECT 44 UNITS DAILY SUBCUTANEOUSLY IN THE EVENING, Disp: ,Rfl: zinc 50 MG tablet, 1 (one) time each day at the same time., Disp: , Rfl: Allergies Azithromycin, Lisinopril, and Ciprofloxacin Past Surgical History Past Surgical History: Procedure Laterality Date CORONARY STENT PLACEMENT 05/2021 2 CORONARY STENT PLACEMENT 2010 LYMPH NODE DISSECTION Right 1967 removal -right side of neck OTHER SURGICAL HISTORY 07/15/2022 Greenlight therapy for Prostate PROSTATE SURGERY June 2022 Family History Family History Problem Relation Name Age of Onset Diabetes Mother Bebe Kerr Heart disease Mother Bebe Kerr enlarged heart Hypertension Father Rocky Kerr Objective General Examination: GENERAL EXAMINATION: alert and oriented. Pleasant disposition. Ambulatory with cane assist; wearingslippers. Accompanied by his spouse, Stephanie. FOOT EXAM: Date of Last Foot Exam 02/17/2024 Sensory testing performed: sensations diminished Sensory and motor testing performed: strength diminished Pedal pulse taking performed: absent Vascular: DORSALIS PEDIS PULSE: faintly palpable, bilaterally. POSTERIOR TIBIAL PULSE: 0/4, bilaterally. TEMPERATURE GRADIENT: warm to cool. EDEMA: +3 pitting edema of both ankles; dorsum of both feet. CAPILLARY FILLING TIME(sec): capillary fill intact bilateral digits less than 3 secs. SHINY ATROPHIC SKIN: present , bilaterally. HAIR GROWTH: sparse. Neurologic: DEEP TENDON REFLEXES: hyperreflexia on the left side; status post CVA. TINELS SIGN: negative along the tarsal canal. VIBRATORY: diminished vibratory sensation at the MTP joint. SHARP SENSATION: tactile and light touch sensation diminished and compromised over the forefoot anddigital areas. SEMMES-SAWYER 5.07 MONOFILAMENT: unable to localize over the forefoot and digital areas. Dermatologic: SKIN FINDINGS: Otherwise intact. HYPERTROPHIC LESION: no forefoot or digital keratotic pressure lesions are noted. HYPERKERATOSIS: mild hyperkeratosis along the rim of bilateral heels; without fissuring. NAIL PATHOLOGY: All digits: None are spared: Toenail dystrophy and clinical mycosis. MYCOSIS SCALE: total with debris; multiple digits. INTERDIGITAL MACERATION: clean, dry, non-inflamed. ULCER: Left foot: 4 distinct superficial ulcerative wounds are located on the dorsum of the midfoot; the largest measuring 3.0 x 2.0 x 0.1 cm. Moist granular wound bed, devitalized epidermal slough, withouteschar. Unremarkable for probing or tracking. Mild serous exudate without pustular exudate or malodor. Unremarkable for ischemic necrosis. Similar appearing, notably smaller ulcerative areas are located on the dorsal surface of digits 2, 3 left foot; 3 right foot, without clinical evidence of infection. The digital wounds appear dry with well adhered eschar. Orthopedic: JOINT RANGE OF MOTION: passive ankle dorsiflexion is limited, without clonus or spastic contracture. Otherwise demonstrates functional ankle, subtalar, midtarsal joint range of motion. 1st MTP joint range of motion bilaterally is limited without crepitus. DEFORMITIES: HAV deformity bilateral; flexible and reducible. MUSCLE STRENGTH: no focal deficits. Radiology: Assessment/Plan Multiple mixed vascular wounds bilateral as described. Type II diabetes/IDDM Diabetic peripheral neuropathy (Q9). Diabetic peripheral vasculopathy (Q8). Status post CVA Plan: Clinical Notes: Review of all clinical findings, mixed venous/lymphatic and arterial disease,high-risk nature of the condition, contributing factors, treatment strategy and objectives. Left foot: Partial-thickness mechanical debridement and cleansing as described. Complete current course of doxycycline and Augmentin therapy. Continue daily care measures: Cleanse twice daily followed by Bactroban 2 percent ointment. Clean white sock will serve as appropriate dressing. Offloading: Darco shoe bilateral. Cane or walker assist. Vascular intervention scheduled for 03/08/2024 Procedure: Left foot: Aseptic technique: Utilizing a saline dampened gauze dressing: Sharp mechanical debridement and cleansing of the dorsal foot wounds; excising devitalized, non-viable skin slough and eschartissue; stimulating wound bleeding. Saline irrigation followed by pressure hemostasis. Amerigel Hydrogel dressing. Well tolerated This note was created with the assistance of a speech recognition program. While intending to generate a timely document that accurately reflects the content of the visit, no guarantee can be provided that every grammatical or spelling mistake has been or will be identified or corrected. Thank you for your understanding. Alice Cochran DPM documented in this encounterWestern [facility] [id number] Instructions* Patient Instructions* Alice Cochran DPM - 02/17/2024 9:45 AM EDT Continue wound care measures documented in this encounterWestern [facility] Medical [id number] History of Present illness Narrative* Alice Cochran DPM - 02/05/2024 10:00 AM EDT Images from the original note were not included. Subjective Patient ID: Piotr Kerr is a 63 y.o. male who presents for No chief complaint on file.. HPI Patient presents with multiple wounds primarily involving the left foot; with a single wound on the3rd digit of the right foot. These have developed insidiously and progressed over the past month orso. There has been no specific injury or trauma; although the patient is dealing with significant swelling of both feet and lower extremities. Gradient compression lymphedema boot therapy have been prescribed, not yet started. Patient has been on doxycycline, well tolerated, overall courses remained stable. Denies streaking or constitutional symptoms. Risk factors: medical comorbidities. Polypharmacy. Plavix and aspirin therapy. Type II diabetes/IDDM. Diabetic peripheral neuropathy. Diabetic peripheral vasculopathy. Status post CVA. mobility, flexibility and dexterity restraints. Toenail deformity. Digital and/or shoe trauma and related complications. PCP Dr. Pritchett. Medications Current Outpatient Medications: acetaminophen-codeine (Tylenol w/ Codeine #3) 300-30 MG tablet, TAKE 1 TABLET BY MOUTH EVERY 4 HOURS NEEDED FOR PAIN FOR UP TO 3 DAYS, TAKE LOWEST DOSE POSSIBLE TO MANAGE PAIN Oral for 3 Days, Disp: , Rfl: Alpha-Lipoic Acid 600 MG capsule, Take by mouth., Disp: , Rfl: ascorbic acid (Vitamin C) 1000 MG tablet, Take 1 tablet by mouth in the morning., Disp: , Rfl: aspirin 81 MG EC tablet, Take 1 tablet by mouth in the morning., Disp: , Rfl: Bacillus Coagulans-Inulin (Probiotic) 1-250 BILLION-MG capsule, Probiotic, Disp: , Rfl: carvedilol (Coreg) 6.25 MG tablet, TAKE ONE TABLET BY MOUTH TWICE A DAY (WITH MEALS), Disp: , Rfl: clopidogrel (Plavix) 75 MG tablet, Take 1 tablet by mouth in the morning., Disp: , Rfl: doxycycline (Vibramycin) 100 MG capsule, Take 100 mg by mouth in the morning and 100 mg before bedtime., Disp: , Rfl: empagliflozin (Jardiance) 10 MG, 1 (one) time each day at the same time, Disp: , Rfl: Entresto 24-26 MG tablet, every 12 (twelve) hours, Disp: , Rfl: famotidine (Pepcid) 20 MG tablet, Take 20 mg by mouth in the morning and 20 mg before bedtime., Disp: , Rfl: furosemide (Lasix) 20 MG tablet, Take 20 mg by mouth in the morning., Disp: , Rfl: HumaLOG KWIKPEN 100 UNIT/ML injection, INJECT 10 UNITS VIA SUBCUTANEOUS ROUTE BEFORE EACH MEAL, Disp: , Rfl: Lasix 40 MG tablet, 1 (one) time each day at the same time., Disp: , Rfl: magnesium oxide (Mag-Ox) 400 MG tablet, Take 1 tablet by mouth in the morning., Disp: , Rfl: MULTIPLE VITAMINS ESSENTIAL PO, Take by mouth., Disp: , Rfl: nitroglycerin (Nitrostat) 0.4 MG SL tablet, as directed Sublingual, Disp: , Rfl: polyethylene glycol, PEG, 3350 (Glycolax) 17 GM/SCOOP powder, Take 17 g by mouth., Disp: , Rfl: pravastatin (Pravachol) 20 MG tablet, Take 20 mg by mouth in the evening., Disp: , Rfl: Sensipar 60 MG tablet, 1 (one) time each day at the same time, Disp: , Rfl: tamsulosin (Flomax) 0.4 MG 24 hr capsule, Take 1 capsule by mouth in the morning., Disp: , Rfl: Toujeo SoloStar 300 UNIT/ML injection, INJECT 44 UNITS DAILY SUBCUTANEOUSLY IN THE EVENING, Disp: ,Rfl: zinc 50 MG tablet, 1 (one) time each day at the same time., Disp: , Rfl: Allergies Azithromycin, Lisinopril, and Ciprofloxacin Past Surgical History Past Surgical History: Procedure Laterality Date CORONARY STENT PLACEMENT 05/2021 2 CORONARY STENT PLACEMENT 2010 LYMPH NODE DISSECTION Right 1967 removal -right side of neck OTHER SURGICAL HISTORY 07/15/2022 Greenlight therapy for Prostate PROSTATE SURGERY June 2022 Family History Family History Problem Relation Name Age of Onset Diabetes Mother Bebe Kerr Heart disease Mother Bebe Kerr enlarged heart Hypertension Father Rocky Kerr Objective General Examination: GENERAL EXAMINATION: alert and oriented. Pleasant disposition. Ambulatory with cane assist; wearingslippers. Accompanied by his spouse, Stephanie. FOOT EXAM: Date of Last Foot Exam 02/05/2024 Sensory testing performed: sensations diminished Sensory and motor testing performed: strength diminished Pedal pulse taking performed: absent Vascular: DORSALIS PEDIS PULSE: faintly palpable, bilaterally. POSTERIOR TIBIAL PULSE: 0/4, bilaterally. TEMPERATURE GRADIENT: warm to cool. EDEMA: +3 pitting edema of both ankles; dorsum of both feet. CAPILLARY FILLING TIME(sec): capillary fill intact bilateral digits less than 3 secs. SHINY ATROPHIC SKIN: present , bilaterally. HAIR GROWTH: sparse. Neurologic: DEEP TENDON REFLEXES: hyperreflexia on the left side; status post CVA. TINELS SIGN: negative along the tarsal canal. VIBRATORY: diminished vibratory sensation at the MTP joint. SHARP SENSATION: tactile and light touch sensation diminished and compromised over the forefoot anddigital areas. SEMMES-SAWYER 5.07 MONOFILAMENT: unable to localize over the forefoot and digital areas. Dermatologic: SKIN FINDINGS: Otherwise intact. HYPERTROPHIC LESION: no forefoot or digital keratotic pressure lesions are noted. HYPERKERATOSIS: mild hyperkeratosis along the rim of bilateral heels; without fissuring. NAIL PATHOLOGY: All digits: None are spared: Toenail dystrophy and clinical mycosis. MYCOSIS SCALE: total with debris; multiple digits. INTERDIGITAL MACERATION: clean, dry, non-inflamed. ULCER: Left foot: 4 distinct superficial ulcerative wounds are located on the dorsum of the midfoot; the largest measuring 3.0 x 3.0 x 0.1 cm. Primarily well hydrated granular wound bed, with eschar and devitalized epidermal slough. Unremarkable for probing or tracking. Mild serous exudate without pustular exudate or malodor. Unremarkable for ischemic necrosis. Similar appearing, notably smaller ulcerative areas are located on the dorsal surface of digits 2, 3 left foot; 3 right foot, without clinicalevidence of infection. Orthopedic: JOINT RANGE OF MOTION: passive ankle dorsiflexion is limited, without clonus or spastic contracture. Otherwise demonstrates functional ankle, subtalar, midtarsal joint range of motion. 1st MTP joint range of motion bilaterally is limited without crepitus. DEFORMITIES: HAV deformity bilateral; flexible and reducible. MUSCLE STRENGTH: no focal deficits. Radiology: Assessment/Plan Multiple mixed vascular wounds bilateral as described. Type II diabetes/IDDM Diabetic peripheral neuropathy (Q9). Diabetic peripheral vasculopathy (Q8). Status post CVA Plan: Clinical Notes: Review of all clinical findings, mixed venous/lymphatic and arterial disease,high-risk nature of the condition, contributing factors, treatment strategy and objectives. Left foot: Partial-thickness mechanical debridement and cleansing as described. Continue doxycycline therapy as prescribed. Add Augmentin therapy as prescribed for dual combination coverage. Continue daily care measures: Cleanse twice daily followed by Bactroban 2 percent ointment. Clean white sock will serve as appropriate dressing. Arrange for vascular consultation. Patient is scheduled for cardiac catheterization within the next1-2 weeks. Non-invasive arterial studies of the lower extremities have been arranged. Offloading: Darco shoe bilateral. Cane or walker assist. Care plan discussed with Dr. Pritchett. Procedure: Left foot: Aseptic technique: Utilizing a saline dampened gauze dressing: Sharp mechanical debridement and cleansing of the dorsal foot wounds; excising devitalized, non-viable skin slough and eschartissue; stimulating wound bleeding. Saline irrigation followed by pressure hemostasis. Amerigel Hydrogel dressing. Well tolerated This note was created with the assistance of a speech recognition program. While intending to generate a timely document that accurately reflects the content of the visit, no guarantee can be provided that every grammatical or spelling mistake has been or will be identified or corrected. Thank you for your understanding. Alice Cochran DPM documented in this [facility]09-13-2024 Instructions* Patient Instructions* Alice Cochran DPM - 02/05/2024 10:00 AM EDT As noted documented in this [facility]07-29-2024 History of Present illness Narrative* Nesha Campoverde RN - 12/21/2023 3:58 PM EDT All discharge instructions reviewed, questions answered, paper signed and given copy. Patient discharged per wheelchair with and belongings. * Nesha Campoverde RN - 12/21/2023 1:05 PM EDT Care received from Juan C Mayen rn and Bettina Madrigal rn Patient received post cath to [facility]. Assessment obtained. Right radial site with vascband intact. Nohematoma noted. Restrictions reviewed with patient and . Patient without complaints. and son and bedside. * Nesha Campoverde RN - 12/21/2023 8:21 AM EDT Patient admitted, consent signed and questions answered. Patient ready for procedure. Call light toreach with side rails up 2 of 2. Right wrist and B/L groin clipped with pattern chart writer and Juan C Mayen rn present. and son at bedside with patient. History and physical to be updated. * Nesha Campoverde RN - 12/18/2023 10:58 AM EDT Attempted pre-procedure call. VM message left for patient to return call. [phone] documented in this [facility] Discharge instructions* Discharge Instructions* Nesha Campoverde RN - 12/21/2023 1:36 PM EDT Images from the original note were not included. Home Care Ok to shower in 24 hours. Discontinue band aid in 24 hours. Do not apply further band aids. Keep clean, dry and open to air. No powder or lotion. Do not soak in a pool or tub and do not swim for one week. If there is any bleeding at the catheter site, apply firm pressure with your hands until the bleeding stops. If bleeding continues after 3 minutes call 911. If there is any swelling or firm areas at your puncture site, this could be bleeding under the skin(hematoma), and if you have any concerns seek help immediately. Drink plenty of fluids after the test. This will flush the x-ray dye from your system. Return to your normal diet. The sedative will make you sleepy. Rest until the effects have worn off. Ask your doctor when you will be able to return to work. Avoid heavy lifting objects greater than 10 pounds, physically demanding activities, and sexual activity for 5-7 days. Your activity will also depend upon where the catheter was inserted: Do not sit for long periods oftime. Try to change positions frequently. Medications If advised by your doctor, resume taking your normal medicines. Use acetaminophen (Tylenol) for pain relief. Do not take metformin (Glucophage) or glyburide and metformin (Glucovance) for 48 hours after the test. If you had to stop taking these medications before the procedure, ask your doctor when you can resume taking them: Anti-inflammatory drugs (eg, ibuprofen ) Blood thinners, such as warfarin (Coumadin) Clopidogrel (Plavix) If you are taking medicines, follow these general guidelines: Take your medicine as directed. Do not change the amount or the schedule. Do not stop taking them without talking to your doctor. Do not share them. Know what the results and side effects. Report them to your doctor. Some drugs can be dangerous when mixed. Talk to a doctor or pharmacist if you are taking more than one drug. This includes [id number] medicine and herb or dietary supplements. Plan ahead for refills so you don't run out. Call Your Doctor If Any of the Following Occurs : Signs of infection, including fever and chills Redness, swelling, increasing pain, excessive bleeding, or any discharge from the catheter insertion site CALL 911 if you have symptoms including: Drooping facial muscles Changes in vision or speech Difficulty walking or using your limbs Change in sensation to affected leg, including numbness, feeling cold, or change in color Extreme sweating, nausea or vomiting Dizziness or lightheadedness Chest pain Rapid, irregular heartbeat Palpitations Cough, shortness of breath, or difficulty breathing Weakness or fainting If you think you have an emergency, CALL 911 . Coronary artery disease (CAD) occurs when plaque builds up in the arteries that bring oxygen-rich blood to your heart. Plaque is a fatty substance made of cholesterol, calcium, and other substances in the blood. This process is called hardening of the arteries, or atherosclerosis. What happens when you have coronary artery disease? Plaque may narrow the coronary arteries. Narrowed arteries cause poor blood flow. This can lead to angina symptoms such as chest pain or discomfort. If blood flow is completely blocked, you could have a heart attack. You can slow CAD and reduce the risk of future problems by making changes in your lifestyle. These include quitting smoking and eating heart-healthy foods. Treatments for CAD, along with changes in your lifestyle, can help you live a longer and healthier life. How can you prevent coronary artery disease? Do not smoke. It may be the best thing you can do to prevent heart disease. If you need help quitting, talk to your doctor about stop-smoking programs and medicines. These can increase your chances of quitting for good. Be active. Get at least 30 minutes of exercise on most days of the week. Walking is a good choice. You also may want to do other activities, such as running, swimming, cycling, or playing tennis or team sports. Eat heart-healthy foods. Eat more fruits and vegetables and less foods that contain saturated and trans fats. Limit alcohol, sodium, and sweets. Stay at a healthy weight. Lose weight if you need to. Manage other health problems such as diabetes, high blood pressure, and high cholesterol. Talk to your doctor about taking a daily aspirin. Manage stress. Stress can hurt your heart. To keep stress low, talk about your problems and feelings. Don't keep your feelings hidden. How is coronary artery disease treated? Your doctor will suggest that you make lifestyle changes. For example, your doctor may ask you to eat healthy foods, quit smoking, lose extra weight, and be more active. You will have to take medicines. Your doctor may suggest a procedure to open narrowed or blocked arteries. This is called angioplasty. Or your doctor may suggest using healthy blood vessels to create detours around narrowed or blocked arteries. This is called bypass surgery. Follow-up care is a tellez part of your treatment and safety. Be sure to make and go to all appointments, and call your doctor if you are having problems. It's also a good idea to know your test resultsand keep a list of the medicines you take. SEDATION / ANALGESIA INFORMATION / HOME GOING ADVICE You have received the sedation/analgesia medication during your visit Sedation/analgesia is used during short medical procedures under controlled supervision. The medication will produce a strong relaxation. You will be able to hear, speak and follow instructions, but your memory and alertness will be decreased. You will be able to swallow and breathe on your own. During sedation/analgesia your blood pressure,heart and breathing will be watched closely. After the procedure, you may not remember what was said or done. You may have the following effects from the medication. Drowsiness, dizziness, sleepiness or confusion. Difficulty remembering or delayed reaction times. Loss of fine muscle control or difficulty with your balance especially while walking. Difficulty focusing or blurred vision. You may not be aware of slight changes in your behavior and/or your reaction time because of the medication used during the procedure. Therefore you should follow these instructions. Have someone responsible help you with your care. Do not drive for 24 hours. Do not operate equipment for 24 hours (lawnmowers, power tools, kitchen accessories, stove). Do not drink any alcoholic beverages for a minimum of 24 hours. Do not make important personal, legal or business decisions for 24 hours. You may experience dizziness or lightheadedness. Move slowly and carefully, do not make sudden position changes. Drink extra amounts of fluids today. Increase your diet as tolerated (unless you have received specific instructions from your doctor). If you feel nauseated, continue with liquids until the nausea is gone. Notify your physician if you have not urinated within 8 hours after the procedure. Resume your medications unless otherwise instructed documented in [facility] encounterB[facility] History of Present illness Narrative* Yumiko Montes PTA - 11/06/2023 12:15 PM EDT [facility] Outpatient Physical Therapy Lymphedema Treatment Date: 11/06/2023 Patient: Piotr Kerr : 1960 CSN #: [id number] Referring Physician: Referring Provider (secondary): Dr. Lucius MD Diagnosis: Lymphedema, I89.0; CHF I50.32; Treatment Diagnosis: B LE lymphedema PT Insurance Information: [employer] [place] Total # of Visits Approved: 12 Total # of Visits to Date: 7 No Show: 0 Canceled Appointment: 1 Subjective Subjective: Pt. arrives to therapy and stated he is still having stomach issues. Did go to the ER Thursday and on another antibiotic since Thursday evening. Additional Pertinent Hx: CHF, CAD, HLD, HTN, CKD, DM, hx of CVA, neuropathy Skin Integumentary: Location Description: L fore foot 3.8cm x 2.6cm Skin Integrity: Wound (add Wound LDA) Pitting Scale Area 1: 3+ Skin Color: Pale Skin Condition/Temp: Warm Hair Growth: Absent Edema Rebound: Slow Signs of Constriction (if applicable): Skin Breakdown: Yes Skin Breakdown Size: 3.8x2.6cm Skin Breakdown Location: top of L foot Papilloma (benign tumor arising from an epithelial layer): No Fibrotic Areas: No Lymphorrhea: No Warts: No Ulcers: No Stage of Lymphedema: Stage 2: Spontaneously Irreversible Stage Description: Lymphedema Classification: Type: Secondary Lymphedema Left: Moderate Right: Moderate Measurements: Right Measurements Left Measurements R LE Pre Girth Measurement (cm) 5th Tuberosity (cm): 26.5 Lateral malleolus: 33.7 Calf (cm): 37.6 Mid Knee (cm): 43 Thigh (cm): 49.6 Total Girth (cm): 190.4 L LE Pre Girth Measurement (cm) 5th Tuberosity (cm): 27.2 Lateral malleolus: 33.8 Calf (cm): 37.8 Mid Knee (cm): 43.4 Thigh (cm): 49.7 Total Girth (cm): 191.9 Exercises: Exercise 1: HEP: limit salt intake, wear B LE kirit wraps (proper application reviewed), seated B LE ther ex Skin Integumentary Skin Color: Pale Skin Condition/Temp: Warm Skin Integrity: Wound (add Wound LDA) Hair Growth: Absent RLE Complete Decongestion Therapy Compression Technique: Vaso-pneumatic pump Force (mmHg): 40 mmHg Duration: 30 minutes LLE Complete Decongestion Therapy Scale: Stage 2 Lymph Drainage Pattern: Lower extremity Compression Technique: Vaso-pneumatic pump Force (mmHg): 40 mmHg Duration : 30 minutes Other Decongestion Therapy Force (mmHg): 40 mmHg Duration : 30 minutes Skin Integumentary Skin Color: Pale Skin Condition/Temp: Warm Skin Integrity: Wound (add Wound LDA) Hair Growth: Absent Other Decongestion Therapy Force (mmHg): 40 mmHg Duration : 30 minutes Assessment Assessment: Patient presents with Lymphedema (i89.0) .Over the last 4+ WEEKS the patient has tried elevation, exercise, and compression. However, despite regular compliance with these modalities the pt continues to present with edema of the LE. Patient would benefit from a vasopneumatic pump to help manage patient condition and improve overall quality of life. Pt. tolerated treatment fair, instructed in self-MLD and how to jared and doff compression pumps, will contniue to practice and educate. Measurements taken this date. Compression pumps at 40mmHg for 30'. Will progress per. tolerance. Therapy Prognosis: Good Patient Education Patient Education: self- MLD and at home pump use Pt verbalized/demonstrated good understanding: [x] Yes [] No, pt required further clarification. Goals Short Term Goals Time Frame for Short Term Goals: 3 weeks Short Term Goal 1: Patient will be educated on his POC and HEP.-MET Short Term Goal 2: Patient will initiate pump protocol to decrease B LE girth measurements in orderto improve ambulation tolerance.-MET Short Term Goal 3: Patient to initiate B LE functional strengthening for improved mobility and endurance.-MET Rn Bone Marrow Transplant Goals Time Frame for Chcf Goals : 6 weeks Chcf Goal 1: Patient will be safe and independent with his lymphedema management. Chcf Goal 2: Patient will demonstrate a 1-2cm decrease in B LE girth measurements in order to improve ambulation tolerance.-progressing Chcf Goal 3: Patient will be fitted for an at home pump in order to be independent with his lymphedema management.-MET Chcf Goal 4: Patient to have improved B LE strength >/=4/5 grossly all major joints and planes for improved functional strength. Minutes Tracking: Time In: 1215 Time Out: 1315 Minutes: 60 Yumiko Montes PTA, Date: 11/06/2023 documented in this encounterB[facility] History of Present illness Narrative* Kim Vázquez RN - 11/03/2023 9:36 AM EDT Brought down to ED by surgery staff by wheelchair per Dr. Kan's request. and all belongings with pt. * Kena Boyd APRN - CRNA - 11/03/2023 9:30 AM EDT CXR and lab results reviewed. Notified surgeon of results and need to cancel surgery. Called and spoke with Dr Kan to have patient go to office or ER and to inform him of elevated bp and that patient reported he did not take his dose of lasix yesterday. Instructed to send patient to ER without any additional medication orders. 0935: Called report to ER and patient transported to ER per Pre OP RN * Kim Vázquez RN - 11/03/2023 9:10 AM EDT Pt continues to be short of breath on room air, at rest. BP remains elevated, pulse ox dropping to 89% but increasing quickly to mid to upper 90s. * Kim Vázquez RN - 11/03/2023 7:59 AM EDT Notified RENEE Noe of pt's condition regarding shortness of breath, elevated BP, complaints of heartburn. RENEE Noe goes in to see pt. * Lois Craft RN - 10/26/2023 2:47 PM EDT Patient instructed on the pre-operative, intra-operative, and post-operative process. Patient instructed on NPO status. Medication instructions and pre operative instruction sheet reviewed with the patient. Pt may take Flomax,Pepcid, and Coreg with a sip of water the morning of surgery. Awaiting to here from lathe setup operator when to hold Plavix and ASA. documented in this encounterB[facility] History of Present illness Narrative* Yumiko Montes PTA - 10/22/2023 11:00 AM EDT [facility] Outpatient Physical Therapy Lymphedema Treatment Date: 10/22/2023 Patient: Piotr Kerr : 1960 CSN #: [id number] Referring Physician: Referring Provider (secondary): Dr. Lucius MD Diagnosis: Lymphedema, I89.0; CHF I50.32; Treatment Diagnosis: B LE lymphedema PT Insurance Information: [employer] [place] Total # of Visits Approved: 12 Total # of Visits to Date: 4 No Show: 0 Canceled Appointment: 0 Subjective Subjective: Pt. arrived 15' late to appointment, stated he is doing ok today, able to get conpression on B LE this date. Additional Pertinent Hx: CHF, CAD, HLD, HTN, CKD, DM, hx of CVA, neuropathy Skin Integumentary: Location Description: Blister broken open on top of L foot 6cmX4.5cm with minimal seropurulent drainage, moderate redness/warmth. Also small pencil eraser-sized blisters on top of 2nd and 3rd toes with moderate purulent drainage. Skin Integrity: Wound (add Wound LDA) Pitting Scale Area 1: 3+ Skin Color: Pale Skin Condition/Temp: Warm Hair Growth: Absent Edema Rebound: Slow Signs of Constriction (if applicable): Skin Breakdown: Yes Skin Breakdown Location: top of L foot Papilloma (benign tumor arising from an epithelial layer): No Fibrotic Areas: No Lymphorrhea: No Warts: No Ulcers: No Stage of Lymphedema: Stage 2: Spontaneously Irreversible Stage Description: Lymphedema Classification: Type: Secondary Lymphedema Left: Moderate Right: Moderate Measurements: Right Measurements Left Measurements R LE Pre Girth Measurement (cm) 5th Tuberosity (cm): 28.5 Lateral malleolus: 31.2 Calf (cm): 45.2 Mid Knee (cm): 48 Thigh (cm): 52.3 Total Girth (cm): 205.2 L LE Pre Girth Measurement (cm) 5th Tuberosity (cm): 28.7 Lateral malleolus: 34 Calf (cm): 44.4 Mid Knee (cm): 46 Thigh (cm): 56 Total Girth (cm): 209.1 Exercises: Exercise 1: HEP: limit salt intake, wear B LE kirit wraps (proper application reviewed), seated B LE ther ex Manual: Other: MLD to B LEs Skin Integumentary Skin Color: Pale Skin Condition/Temp: Warm Skin Integrity: Wound (add Wound LDA) Hair Growth: Absent RLE Complete Decongestion Therapy Scale: Stage 2 Lymph Drainage Pattern: Lower extremity Compression Technique: Vaso-pneumatic pump Force (mmHg): 40 mmHg Duration: 30 minutes LLE Complete Decongestion Therapy Scale: Stage 2 Lymph Drainage Pattern: Lower extremity Compression Technique: Vaso-pneumatic pump Force (mmHg): 40 mmHg Duration : 30 minutes Other Decongestion Therapy Force (mmHg): 40 mmHg Duration : 30 minutes Skin Integumentary Skin Color: Pale Skin Condition/Temp: Warm Skin Integrity: Wound (add Wound LDA) Hair Growth: Absent Other Decongestion Therapy Force (mmHg): 40 mmHg Duration : 30 minutes Assessment Assessment: Pt. fitted for at home pumps this date. MLD to B LEs followed by 40 mmHg compression for 30' with good tolerance. Will progress per pt. tolerance. Therapy Prognosis: Good Patient Education Patient Education: HEP Pt verbalized/demonstrated good understanding: [x] Yes [] No, pt required further clarification. Goals Short Term Goals Time Frame for Short Term Goals: 3 weeks Short Term Goal 1: Patient will be educated on his POC and HEP.-MET Short Term Goal 2: Patient will initiate pump protocol to decrease B LE girth measurements in orderto improve ambulation tolerance.-MET Short Term Goal 3: Patient to initiate B LE functional strengthening for improved mobility and endurance.-MET Rn Bone Marrow Transplant Goals Time Frame for Rn Bone Marrow Transplant Goals : 6 weeks Rn Bone Marrow Transplant Goal 1: Patient will be safe and independent with his lymphedema management. Chcf Goal 2: Patient will demonstrate a 1-2cm decrease in B LE girth measurements in order to improve ambulation tolerance. Rn Bone Marrow Transplant Goal 3: Patient will be fitted for an at home pump in order to be independent with his lymphedema management. Rn Bone Marrow Transplant Goal 4: Patient to have improved B LE strength >/=4/5 grossly all major joints and planes for improved functional strength. Minutes Tracking: Time In: 1116 Time Out: 1203 Minutes: 47 Yumiko Montes PTA, Date: 10/22/2023 documented in this encounterB[facility] Evaluation note* Encounter Date Diagnosis Assessment Notes Treatment Notes Treatment Clinical Notes Apr, Type 2 diabetes iris itus with hyperglycemia (ICD-10 - E11.65) < 100 none, 101-150 8u, 151-200 16u, 201-250 24u, 251-300 30u, > 300 35u This patient is following a comprehensive diabetic treatment plan. They are checking their feet daily for calluses and nonhealing ulcers. They are being seen for yearly dilated eye examinations. Goals: SBP less than 130, LDL less than 100, FBS less than 140, A1C less than 7%. They are checking their BS 4-6x daily, will which are reviewed at the office visit. Continue regular routine monitoring of A1C,] Microalbumin, Dilated eye exam and Foot exam Increase basal insulin to 40-50u w/ goal of FBS < 180 Apr, Type 2 diabetes iris itus with diabetic peripheral angiopathy without gangrene (ICD-10 - E11.51) Inspect feet daily for cuts and calluses.Recommend diabetic shoes and inserts to prevent callus formation.Fall precautions. Apr, ASHD (arteriosclerot ic heart disease) (ICD-10 - I25.10) This patient is stable without activity related CP, dyspnea or lightheadedness. They are instructed to continue exercise and AHA diet plan. Continue secondary prevention measures. Apr, Acute on chronic diastolic heart failure (ICD-10 - I50.33) Low salt diet. Increased Lasix to 60mg w/ decreasing weight. Daily weights w/ goal of gradual reduction until reach 260. Consider GDMT for CHF. - CKD interferes w/ some treatment - SGLT-2 may be considered Apr, Stage 3a chronic kid kana disease (ICD-10 - N18.31) The patient is instructed on adequate control of hypertension and diabetes, if appropriate. They are also educated on the associated risks of NSAIDs and PPI use with kidney disease. They were instructed on adequate fluid balance and to avoid dehydration. Apr, Essential hypertensi on (ICD-10 - I10) This patient is instructed to consume a healthy, low-fat, low-salt diet. They are also encouraged to continue exercise to achieve/maintain a normal BMI. Uncontrolled but will be better/safer addressed by Statue Maker Apr, Pure hypercholestero lemia (ICD-10 - E78.00) Instructed on diet and exercise with continued statin therapy.Discussed the beneficial effects of lowering cholesterol in reducing the risk for cerebrovascular and cardiovascular disease. Apr, Obstructive sleep ap ellyn (ICD-10 - G47.33) This patient is aware of the benefits associated with CHRIS: With continued use, the patient reduces the risk for PA, CVA, HTN, cardiac dysrhythmias and sudden cardiac deaths.The patient is also aware of the association between CHRIS and morning headaches, daytime somnolence, fatigue and obesity, which also has been improved with continued use.The patient is compliant with treatment, wearing the equipment every night for greater than 4 hours.The patient is instructed to continue use of the CPAP for CHRIS treatment. Apr, Hyperparathyroidism (ICD-10 - E21.3) Statue Maker evaluating this for patient - elevated Ca and PTH - likely will require surgical treatment. 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 They are also educated on the associated risks of NSAIDs and PPI use with kidney disease. They were instructed on adequate fluid balance and to avoid dehydration. [employer] Other 12-14-2023 Evaluation note* Encounter Date Diagnosis Assessment Notes Treatment Notes Treatment Clinical Notes Apr, Cardiomyopathy, ischemic (ICD-10 - I25.5) NM stress: inferolateral ischemia 06/2022 Echo: LVEF 55%, LVH, diastolic dysfunction Apr, Chronic diastolic heart failure (ICD-10 - I50.32) [employer] Other 12-03-2023 Evaluation note* Encounter Date Diagnosis Assessment Notes Treatment Notes Treatment Clinical Notes Apr, Type 2 diabetes mellitus with diabetic peripheral angiopathy without gangrene (ICD-10 - E11.51) [employer] Other 11-06-2023 Evaluation note* Encounter Date Diagnosis Assessment Notes Treatment Notes Treatment Clinical Notes Mar, Stage 3b chronic kidney disease (ICD-10 - N18.32) [employer] Other 09-20-2023 Evaluation note* Encounter Date Diagnosis Assessment Notes Treatment Notes Treatment Clinical Notes Jan, Type 2 diabetes iris itus with hyperglycemia (ICD-10 - E11.65) < 100 none, 101-150 4u, 151-200 10u, 201-250 18u, 251-300 24u, > 300 30u This patient is following a comprehensive diabetic treatment plan. They are checking their feet daily for calluses and nonhealing ulcers. They are being seen for yearly dilated eye examinations. Goals: SBP less than 130, LDL less than 100, FBS less than 140, AC and A1C less than 7%. They are checking their BS daily, will which are reviewed at the office visit. Continue regular routine monitoring of A1C,] Microalbumin, Dilated eye exam and Foot exam Poorly controlled w/ elevated FBS - increase basal insulin by 2u every 3-4 days until FBS < 150 or reach 50u - review ISS coverage and adjust - reduce portions and calories Jan, Type 2 diabetes iris itus with diabetic peripheral angiopathy without gangrene (ICD-10 - E11.51) Inspect feet daily for cuts and calluses.Recommend diabetic shoes and inserts to prevent callus formation.Fall precautions. Schedule segmental pressure testing Continue primary prevention measures Nonhealing ulcerations on the second and middle toe of the left foot Soak in soapy water and rinse Scheduled to see Vocational Ed Instructor Jan, Stage 3b chronic kid kana disease (ICD-10 - N18.32) The patient is instructed on adequate control of hypertension and diabetes, if appropriate. They are also educated on the associated risks of NSAIDs and PPI use with kidney disease. They were instructed on adequate fluid balance and to avoid dehydration. Jan, ASHD (arteriosclerot ic heart disease) (ICD-10 - I25.10) This patient is stable without activity related CP, dyspnea or lightheadedness. They are instructed to continue exercise and AHA diet plan. Continue secondary prevention measures. Jan, Atherosclerosis of n ative artery of left lower extremity with intermittent claudication (ICD-10 - I70.212) Inspect feet daily for cuts and calluses. Walk daily, pump feet. Continue secondary prevention measures - need improve control of DM and HTN Recommend regular appt w/ Vocational Ed Instructor Jan, Essential hypertensi on (ICD-10 - I10) This patient is instructed to consume a healthy, low-fat, low-salt diet. They are also encouraged to continue exercise to achieve/maintain a normal BMI. Uncontrolled but medications adjusted by Statue Maker - seeing again in 2 days - defer change to Nephrology Jan, Swelling of left low er extremity (ICD-10 - M79.89) Avoid salt, elevate and pump feet. Begin antibiotics for mild infection of middle toe - f/u Podiatry Venous US to exclude DVT Jan, Pure hypercholestero lemia (ICD-10 - E78.00) Instructed on diet and exercise with continued statin therapy.Discussed the beneficial effects of lowering cholesterol in reducing the risk for cerebrovascular and cardiovascular disease. Jan, Obstructive sleep ap ellyn (ICD-10 - G47.33) This patient is aware of the benefits associated with CHRIS: With continued use, the patient reduces the risk for PA, CVA, HTN, cardiac dysrhythmias and sudden cardiac deaths.The patient is also aware of the association between CHRIS and morning headaches, daytime somnolence, fatigue and obesity, which also has been improved with continued use.The patient is compliant with treatment, wearing the equipment every night for greater than 4 hours.The patient is instructed to continue use of the CPAP for CHRIS treatment. Jan, Hyperparathyroidism (ICD-10 - E21.3) Evaluation underway w/ Statue Maker NM parathyroid scan and 24 hour urine for Ca pending Jan, Hx of cerebral infar ction (ICD-10 - Z86.73) No acute neurologic deficits. 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) Jan, Subconjunctival hemorrhage of right eye (ICD-10 - H11.31) [employer] Other 08-15-2023 Evaluation note* Encounter Date Diagnosis Assessment Notes Treatment Notes Treatment Clinical Notes Dec, Essential hypertension (ICD-10 - I10) Power Fingerprinting Other 07-27-2023 History of Present illness Narrative* Rashel Cárdenas, PT - 12/18/2022 1:45 PM EDT [facility] Outpatient Physical Therapy Daily Note Patient: Piotr Kerr : 1960 CSN #: [id number] Referring Physician: Jorge Pritchett DO Date: 12/18/2022 Diagnosis: M54.50 low back pain, R29.898 weakness Treatment Diagnosis: weakness Onset Date: 08/13/22 PT Insurance Information: [employer] [place] Total # of Visits Approved: 30 Per Physician Order Total # of Visits to Date: 28 No Show: 0 Canceled Appointment: 2 12/19/22 Plan of Care/Recert Due Pre-Treatment Pain: 5/10 Subjective: Patient reports worsening shortness of breath, fatigue, headaches and dizziness and is not sure what's going on medically. Exercises: Exercise 2: Amb 3 big loop SPC - 1 loop this date with FWW Exercise 4: marches, heel/toe raise; hip abd x10 at counter Exercise 5: Lateral stepping at counter 4 laps, yellow tband around ankles-no band today Exercise 6: Sit to stand with eccentric lowering 2x10 with minimal BUE support Exercise 8: Scifit 10' lvl 3.5 Exercise 13: step taps 6 in x10 ea LE. Assessment Assessment: Patient reports lightheadedness with functional LE strengthening exercises at countertop, requiring frequent seated rest breaks. Reports feeling exhausted after 10minutes on recumbent bike. Plan to place patient on hold d/t insurance limitations and to return to doctor regarding continued medical limitations. Encouraged patient to continue building endurance at home as tolerated. Pt demo's good understanding. Activity Tolerance Activity Tolerance: Patient limited by endurance Patient Education Continue with HEP as tolerated Pt verbalized/demonstrated good understanding: [x] Yes [] No, pt required further clarification. Post Treatment Pain: 10/01 Plan Plan Frequency: 2x/wk Plan weeks: 6 weeks Goals (Total # of Visits to Date: 28) Short Term Goals Time Frame for Short Term Goals: 3 weeks Short Term Goal 1: pt will be educated on his POC and HEP-met Short Term Goal 2: Pt will tolerate 45 minutes of exercise/therapy with minimal rest breaks in order to increase strength and endurance.-progressing Short Term Goal 3: Pt will be able to complete 5 sit to stand with good eccentric control and no LOB in </=30 seconds in order to improve functional strength---met 20 seconds Rn Bone Marrow Transplant Goals Time Frame for [facility] Goals : 6 weeks Rn Bone Marrow Transplant Goal 1: Pt will be safe and independent with his HEP Rn Bone Marrow Transplant Goal 2: Pt will increase L LE strength to >/=4-/5 and R LE strength to 4/5 in order toincrease ambulation tolerance-met (R LE: 4 to 4+/5; L LE: 4/5 grossly except ankle DF: 4-/5) [facility] Goal 3: Pt will be able to ambulate for 10 minutes with LRAD and no LOB with minimal fatigue in order to increase community ambulation-progressing (~5.5min max before fatigue/SOB requiring seated rest break) [facility] Goal 4: Pt will increase tinetti score to >/=20/28 in order to reduce fall risk Minutes Tracking: Time In: 1345 Time Out: 1444 Minutes: 59 Timed Code Treatment Minutes: 47 Minutes Rashel Cárdenas PT, DPT Date: 12/18/2022 documented [facility] History of Present illness Narrative* Rashel Cárdenas PT - 12/11/2022 12:30 PM EDT [facility] Outpatient Physical Therapy Daily Note Patient: Piotr Kerr : 1960 CSN #: [id number] Referring Physician: Jorge Pritchett DO Date: 12/11/2022 Diagnosis: M54.50 low back pain, R29.898 weakness Treatment Diagnosis: weakness Onset Date: 08/13/22 PT Insurance Information: [employer] [place] Total # of Visits Approved: 30 Per Physician Order Total # of Visits to Date: 26 No Show: 0 Canceled Appointment: 2 12/19/22 Plan of Care/Recert Due Pre-Treatment Pain: 08/01 Subjective: Patient reports a lot of R arm pain today and still has concerns about abdominal weightgain. Exercises: Exercise 2: Amb 3 big loop SPC - 1 loop this date with FWW Exercise 6: Sit to stand with eccentric lowering 2x10 with minimal BUE support Exercise 7: Supine LTR, PPT, marching, glut sets, SLR's x15 ea; BTB clamshells x10; DKTC with purple ball (5x) Exercise 8: Scifit 10' lvl 3.5 Exercise 11: Supine BTB Hab's/diag's/B shld ER x15 ea way Exercise 14: Supine 5# bar benchpress, SA punches and shoulder flexion x15 ea Modalities: CP x15 min to L lateral hip in hooklying to decrease pain and inflammation Assessment Assessment: Pt continues with moderate to severe SOB during ther ex and gait training requiring frequent rest breaks throughout session. CP to L lateral hip x15 min at end of session to decrease pain/inflammation. Activity Tolerance Activity Tolerance: Patient limited by endurance Patient Education Exercise technique Pt verbalized/demonstrated good understanding: [x] Yes [] No, pt required further clarification. Post Treatment Pain: 07/04 Plan Plan Frequency: 2x/wk Plan weeks: 6 weeks Goals (Total # of Visits to Date: 26) Short Term Goals Time Frame for Short Term Goals: 3 weeks Short Term Goal 1: pt will be educated on his POC and HEP-met Short Term Goal 2: Pt will tolerate 45 minutes of exercise/therapy with minimal rest breaks in order to increase strength and endurance.-progressing Short Term Goal 3: Pt will be able to complete 5 sit to stand with good eccentric control and no LOB in </=30 seconds in order to improve functional strength---met 20 seconds [facility] Goals Time Frame for [facility] Goals : 6 weeks Rn Bone Marrow Transplant Goal 1: Pt will be safe and independent with his HEP Rn Bone Marrow Transplant Goal 2: Pt will increase L LE strength to >/=4-/5 and R LE strength to 4/5 in order toincrease ambulation tolerance-met (R LE: 4 to 4+/5; L LE: 4/5 grossly except ankle DF: 4-/5) Rn Bone Marrow Transplant Goal 3: Pt will be able to ambulate for 10 minutes with LRAD and no LOB with minimal fatigue in order to increase community ambulation-progressing (~5.5min max before fatigue/SOB requiring seated rest break) Rn Bone Marrow Transplant Goal 4: Pt will increase tinetti score to >/=20/28 in order to reduce fall risk Minutes Tracking: Time In: 1230 Time Out: 1329 Minutes: 59 Timed Code Treatment Minutes: 44 Minutes Rashel Cárdenas PT, DPT Date: 12/11/2022 documented in this encounterB[facility] History of Present illness Narrative* Shirin Bajwa, COOKING CHEF - 12/03/2022 2:30 PM EDT [facility] Outpatient Physical Therapy Daily Note Patient: Piotr Kerr : 1960 CSN #: [id number] Referring Physician: Jorge Pritchett DO Date: 12/03/2022 Treatment Diagnosis: weakness Onset Date: 08/13/22 PT Insurance Information: [employer] [place] Total # of Visits Approved: 30 Per Physician Order Total # of Visits to Date: 24 No Show: 0 Canceled Appointment: 2 12/19/22 Plan of Care/Recert Due Pre-Treatment Pain: not stated Subjective: Pt states pain is about the same in L hip and shoulder. Pt states he enjoyed using bothheat and ice after his last visit. Exercises: Exercise 1: HEP sink ex; green flexbar 10x ea way Exercise 6: Sit to stand with eccentric lowering 2x10 with minimal BUE support Exercise 7: Supine LTR, PPT, marching, glut sets, SLR's x15 ea; BTB clamshells x10; DKTC with purple ball (5x) Exercise 8: Scifit 10' lvl 3 Exercise 14: Supine 5# bar benchpress, SA punches and shoulder flexion x15 ea Modalities: CP L hip and MHP R thigh to decrease pain x15 min post tx. Assessment Assessment: Pt continues to require increased RBs this date d/t fatigue and SOB during supine therex. Pt requires cues for correct exercsie form. WIll progress. Activity Tolerance Activity Tolerance: Patient limited by endurance, Patient tolerated treatment well Patient Education Ex technique, HEP Pt verbalized/demonstrated good understanding: [x] Yes [] No, pt required further clarification. Post Treatment Pain: not stated Plan Plan Frequency: 2x/wk Plan weeks: 6 weeks Goals (Total # of Visits to Date: 24) Short Term Goals Time Frame for Short Term Goals: 3 weeks Short Term Goal 1: pt will be educated on his POC and HEP-met Short Term Goal 2: Pt will tolerate 45 minutes of exercise/therapy with minimal rest breaks in order to increase strength and endurance.-progressing Short Term Goal 3: Pt will be able to complete 5 sit to stand with good eccentric control and no LOB in </=30 seconds in order to improve functional strength---met 20 seconds Rn Bone Marrow Transplant Goals Time Frame for Rn Bone Marrow Transplant Goals : 6 weeks [facility] Goal 1: Pt will be safe and independent with his HEP Rn Bone Marrow Transplant Goal 2: Pt will increase L LE strength to >/=4-/5 and R LE strength to 4/5 in order toincrease ambulation tolerance-met (R LE: 4 to 4+/5; L LE: 4/5 grossly except ankle DF: 4-/5) [facility] Goal 3: Pt will be able to ambulate for 10 minutes with LRAD and no LOB with minimal fatigue in order to increase community ambulation-progressing (~5.5min max before fatigue/SOB requiring seated rest break) Rn Bone Marrow Transplant Goal 4: Pt will increase tinetti score to >/=20/28 in order to reduce fall risk Minutes Tracking: Time In: 1430 Time Out: 1528 Minutes: 58 Timed Code Treatment Minutes: 41 Minutes Shirin Bajwa, COOKING CHEF Date: 12/03/2022 documented in this encounterB[facility] History of Present illness Narrative* Rashel Cárdenas, PT - 12/01/2022 2:30 PM EDT [facility] Outpatient Physical Therapy Daily Note Patient: Piotr Kerr : 1960 CSN #: [id number] Referring Physician: Jorge Pritchett DO Date: 12/01/2022 Diagnosis: M54.50 low back pain, R29.898 weakness Treatment Diagnosis: weakness Onset Date: 08/13/22 PT Insurance Information: [employer] [place] Total # of Visits Approved: 30 Per Physician Order Total # of Visits to Date: No Show: 0 Canceled Appointment: 2 12/19/22 Plan of Care/Recert Due Pre-Treatment Pain: 08/01 Subjective: Pt reports new onset of L lateral hip pain that is limiting his walking distance. L shoulder pain as well but that is normal for him. Pt reports B arm strengthening routine at home but his wants him to work more on his arms here at therapy. Exercises: Exercise 7: Supine LTR, PPT, marching, glut sets, SLR's x15 ea; BTB clamshells x10; DKTC with purple ball (5x) Exercise 8: Scifit 10' lvl 3 Exercise 11: Supine BTB Hab's/diag's/B shld ER x10 ea way Exercise 14: Supine 5# bar benchpress, SA punches and shoulder flexion x15 ea Modalities: CP to L lateral hip and HP to R thigh x10 min in hooklying to decrease pain Assessment Assessment: Initiated supine core, B shoulder and B LE strengthening d/t poor tolerance to standingther ex d/t hip pain and shortness of breath. Moderate vc's for technique and form. Will continue to progress as tolerated. Activity Tolerance Activity Tolerance: Patient limited by endurance, Patient tolerated treatment well Patient Education Exercise technique Pt verbalized/demonstrated good understanding: [x] Yes [] No, pt required further clarification. Post Treatment Pain: 07/04 Plan Plan Frequency: 2x/wk Plan weeks: 6 weeks Goals (Total # of Visits to Date: 23) Short Term Goals Time Frame for Short Term Goals: 3 weeks Short Term Goal 1: pt will be educated on his POC and HEP-met Short Term Goal 2: Pt will tolerate 45 minutes of exercise/therapy with minimal rest breaks in order to increase strength and endurance.-progressing Short Term Goal 3: Pt will be able to complete 5 sit to stand with good eccentric control and no LOB in </=30 seconds in order to improve functional strength---met 20 seconds Rn Bone Marrow Transplant Goals Time Frame for [facility] Goals : 6 weeks Rn Bone Marrow Transplant Goal 1: Pt will be safe and independent with his HEP [facility] Goal 2: Pt will increase L LE strength to >/=4-/5 and R LE strength to 4/5 in order toincrease ambulation tolerance-met (R LE: 4 to 4+/5; L LE: 4/5 grossly except ankle DF: 4-/5) [facility] Goal 3: Pt will be able to ambulate for 10 minutes with LRAD and no LOB with minimal fatigue in order to increase community ambulation-progressing (~5.5min max before fatigue/SOB requiring seated rest break) Rn Bone Marrow Transplant Goal 4: Pt will increase tinetti score to >/=20/28 in order to reduce fall risk Minutes Tracking: Time In: 1429 Time Out: 1524 Minutes: 55 Timed Code Treatment Minutes: 45 Minutes Rashel Cárdenas PT, DPT Date: 12/01/2022 documented in this encounterB[facility] Evaluation note* Encounter Date Diagnosis Assessment Notes Treatment Notes Treatment Clinical Notes Oct, Type 2 diabetes iris itus with hyperglycemia (ICD-10 - E11.65) < 100 none, 101-150 4u, 151-200 10u, 201-250 18u, 251-300 24u, > 300 30u This patient is following a comprehensive diabetic treatment plan. They are checking their feet daily for calluses and nonhealing ulcers. They are being seen for yearly dilated eye examinations. Goals: SBP less than 130, LDL less than 100, FBS less than 140, AC and A1C less than 7%. They are checking their BS daily, will which are reviewed at the office visit. 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 They are also educated on the associated risks of NSAIDs and PPI use with kidney disease. They were instructed on adequate fluid balance and to avoid dehydration. Initial appt w/ Nephrology. Oct, ASHD (arteriosclerot ic heart disease) (ICD-10 - I25.10) Oct, Essential hypertensi on (ICD-10 - I10) This patient is instructed to consume a healthy, low-fat, low-salt diet. They are also encouraged to continue exercise to achieve/maintain a normal BMI. Remains elevated Several ADR to medications. Due to upcoming Nephrology appt, suggest awaiting their recommendations - may restart ARB/KIRIT Oct, Pure hypercholestero lemia (ICD-10 - E78.00) Instructed on diet and exercise with continued statin therapy.Discussed the beneficial effects of lowering cholesterol in reducing the risk for cerebrovascular and cardiovascular disease. Oct, Obstructive sleep ap ellyn (ICD-10 - G47.33) This patient is aware of the benefits associated with CHRIS: With continued use, the patient reduces the risk for PA, CVA, HTN, cardiac dysrhythmias and sudden cardiac deaths.The patient is also aware of the association between CHRIS and morning headaches, daytime somnolence, fatigue and obesity, which also has been improved with continued use.The patient is compliant with treatment, wearing the equipment every night for greater than 4 hours.The patient is instructed to continue use of the CPAP for CHRIS treatment. Oct, Gastroesophageal ref lux disease with esophagitis without hemorrhage (ICD-10 - K21.00) Diet instructions: Smaller portions, avoid eating and laying flat, avoid eating or drinking prior to bedtime. Weight loss. Initiate Pepcid Oct, Hx of cerebral infar ction (ICD-10 - Z86.73) Continue to increase activity. No recurrent neurologic deficits. Continue secondary preventions measures Oct, Benign prostatic hyperplasia with lower urinary tract symptoms (ICD-10 - N40.1) Symptoms tolerable. 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) Power Fingerprinting Other 06-16-2023 History of Present illness Narrative* Rashel Cárdenas, PT - 11/07/2022 1:00 PM EDT [facility] Outpatient Physical Therapy Daily Note Patient: Piotr Kerr : 1960 CSN #: [id number] Referring Physician: Jorge Pritchett DO Date: 11/07/2022 Diagnosis: M54.50 low back pain, R29.898 weakness Treatment Diagnosis: weakness Onset Date: 08/13/22 PT Insurance Information: [employer] [place] Total # of Visits Approved: 30 Per Physician Order Total # of Visits to Date: 17 No Show: 0 Canceled Appointment: 2 12/19/22 Plan of Care/Recert Due Pre-Treatment Pain: 08/01 Subjective: Patient arrives with SPC today and is very SOB from walking in to the clinic. Exercises: Exercise 1: HEP sink ex; green flexbar 10x ea way Exercise 4: marches, heel/toe raise; hip abd x10 at counter Exercise 5: Lateral stepping at counter 4 laps Exercise 6: Sit to stand with eccentric lowering 2x10 with BUE support Exercise 8: Scifit 10 min L 2 -- 8 min L1 today Exercise 9: Seated BLE ex x10 ea 2# ankle; YTB HS curls x10 ea LE Assessment Assessment: Patient has attended 17 PT visits for general weakness and has met goals for initiatingHEP and functional strength and endurance exercises and for improved muscular power with sit/standsbut continues to struggle with overall endurance d/t recent heart problems and can only walk <5minutes at a time with cane before SOB requiring seated rest break. Pt's B LE's buckle occasionally d/t fatigue. Patient to benefit from continued PT 2x/wk for up to 6 more weeks to meet remaining goals and return to PLOF. Activity Tolerance Activity Tolerance: Patient limited by endurance Patient Education Exercise technique Pt verbalized/demonstrated good understanding: [x] Yes [] No, pt required further clarification. Post Treatment Pain: 0/10 Plan Plan Frequency: 2x/wk Plan weeks: 6 weeks Goals (Total # of Visits to Date: 17) Short Term Goals Time Frame for Short Term Goals: 3 weeks Short Term Goal 1: pt will be educated on his POC and HEP-met Short Term Goal 2: Pt will tolerate 45 minutes of exercise/therapy with minimal rest breaks in order to increase strength and endurance.-progressing Short Term Goal 3: Pt will be able to complete 5 sit to stand with good eccentric control and no LOB in </=30 seconds in order to improve functional strength---met 20 seconds [facility] Goals Time Frame for Rn Bone Marrow Transplant Goals : 6 weeks [facility] Goal 1: Pt will be safe and independent with his HEP [facility] Goal 2: Pt will increase L LE strength to >/=4-/5 and R LE strength to 4/5 in order toincrease ambulation tolerance-met (R LE: 4 to 4+/5; L LE: 4/5 grossly except ankle DF: 4-/5) Rn Bone Marrow Transplant Goal 3: Pt will be able to ambulate for 10 minutes with LRAD and no LOB with minimal fatigue in order to increase community ambulation-progressing (~5.5min max before fatigue/SOB requiring seated rest break) [facility] Goal 4: Pt will increase tinetti score to >/=20/28 in order to reduce fall risk Minutes Tracking: Time In: 1258 Time Out: 1345 Minutes: 47 Timed Code Treatment Minutes: 46 Minutes Rashel Cárdenas PT, DPT Date: 11/07/2022 documented in this encounterB[facility] History of Present illness Narrative* Shirin Bajwa, ALEXANDRA - 10/27/2022 1:00 PM EDT [facility] Out[facility] Physical Therapy Daily Note Patient: Piotr Kerr : 1960 CSN #: [id number] Referring Physician: Jorge Pritchett DO Date: 10/27/2022 Treatment Diagnosis: weakness Onset Date: 08/13/22 PT Insurance Information: [employer] [place] Total # of Visits Approved: 24 Per Physician Order Total # of Visits to Date: 15 No Show: 0 Canceled Appointment: 1 11/07/22 Plan of Care/Recert Due Pre-Treatment Pain: not stated Subjective: Pt returns to therapy after having to cancel 4 visits d/t health complications. He reports he had to go to ER a few weeks ago d/t urinary retention, was d/c with catheter for a week. he states after it was removed, had increased bleeding. 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 He reports he is excessivly fatigued and hasn't been doing much besides going to appointments. He arrives in w/c Exercises: Exercise 1: HEP sink ex; green flexbar 10x ea way Exercise 2: Amb 3 big loop SPC -only 1 half loop today with FWW Exercise 4: marches, heel/toe raise x12 each standing at walker Exercise 6: Sit to stand with eccentric lowering [id number] today with BUE support --difficulty witheccentric lower today Exercise 9: Seated BLE ex 2x8-10 ea 2# ankle - just july and LAQ this date x10 ea LE Assessment Assessment: Pt displayed decreased tolerance to exercise this date, completed decreased reps and exercises d/t fatigue. He required use of FWW with standing/gait d/t instability/fatigue. He required frequent Rbs. Updated HEP with seated BLE exercises and encouraged walking around home to increase en durance. WIll continue as tolerated. Activity Tolerance Activity Tolerance: Patient limited by endurance Patient Education Ex technique, HEP update, energy conservation Pt verbalized/demonstrated good understanding: [x] Yes [] No, pt required further clarification. Post Treatment Pain: not stated Plan Plan Frequency: 2x/wk Plan weeks: 6 weeks Goals (Total # of Visits to Date: 15) Short Term Goals Time Frame for Short Term Goals: 3 weeks Short Term Goal 1: pt will be educated on his POC and HEP-met Short Term Goal 2: Pt will tolerate 45 minutes of exercise/therapy with minimal rest breaks in order to increase strength and endurance.-progressing Short Term Goal 3: Pt will be able to complete 5 sit to stand with good eccentric control and no LOB in </=30 seconds in order to improve functional strength---met 20 seconds Rn Bone Marrow Transplant Goals Time Frame for Rn Bone Marrow Transplant Goals : 6 weeks Rn Bone Marrow Transplant Goal 1: Pt will be safe and independent with his HEP [facility] Goal 2: Pt will increase L LE strength to >/=4-/5 and R LE strength to 4/5 in order toincrease ambulation tolerance-met (R LE: 4 to 4+/5; L LE: 4/5 grossly except ankle DF: 4-/5) [facility] Goal 3: Pt will be able to ambulate for 10 minutes with LRAD and no LOB with minimal fatigue in order to increase community ambulation-progressing (~5.5min max before fatigue/SOB requiring seated rest break) [facility] Goal 4: Pt will increase tinetti score to >/=20/28 in order to reduce fall risk Minutes Tracking: Time In: 1300 Time Out: 1345 Minutes: 45 Timed Code Treatment Minutes: 44 Minutes Shirin Bajwa PTA Date: 10/27/2022 documented in [facility] encounterB[facility] [employer] Work Phone: [phone]) 677-504705-12-2023 History of Present illness Narrative* Shirin Bajwa PTA - 10/03/2022 12:30 PM EDT [facility] Out[facility] Physical Therapy Daily Note Patient: Piotr Kerr : 1960 CSN #: [id number] Referring Physician: Jorge Pritchett DO Date: 10/03/2022 Treatment Diagnosis: weakness Onset Date: 08/13/22 PT Insurance Information: [employer] [place] Total # of Visits Approved: 24 Per Physician Order Total # of Visits to Date: 13 No Show: 0 Canceled Appointment: 0 11/07/22 Plan of Care/Recert Due Pre-Treatment Pain: 3/10 Subjective: Pt reports pain 3/10 on L side. He states pain gets worse when he walks. Exercises: Exercise 1: HEP sink ex; green flexbar 10x ea way Exercise 2: Amb 3 big loop SPC -only tolerated 2 laps today Exercise 4: marches, heel/toe raise x12 each Exercise 5: Lateral stepping at counter 3 laps Exercise 6: Sit to stand with eccentric lowering 2x15 Exercise 13: Standing at counter tapping 5 scattered cones 2x5 each arm with no UE support. Exercise 14: Ball hold + lift between feet for core activation + hip ER x10; seated ab set 3 hold x10 Assessment Assessment: Added standing endurance/balance activity to progress towards goals. pt tolerated ~1 min 35 seconds of standing unsupported while moving UE's outside ALEJANDRINA and across midline. Pt reports increased low back pain with prolonged standing. Continued general strengthening and endurance based ex ercises this date with pt taking 4 seated Rbs d/t fatigue. Encouraged pt to increased amount of time standing/walking at home. WIll continue as tolerated. Activity Tolerance Activity Tolerance: Patient limited by endurance Patient Education Ex technique, increased standing/walking time Pt verbalized/demonstrated good understanding: [x] Yes [] No, pt required further clarification. Post Treatment Pain: 08/01 Plan Plan Frequency: 2x/wk Plan weeks: 6 weeks Goals (Total # of Visits to Date: 13) Short Term Goals Time Frame for Short Term Goals: 3 weeks Short Term Goal 1: pt will be educated on his POC and HEP-met Short Term Goal 2: Pt will tolerate 45 minutes of exercise/therapy with minimal rest breaks in order to increase strength and endurance.-progressing Short Term Goal 3: Pt will be able to complete 5 sit to stand with good eccentric control and no LOB in </=30 seconds in order to improve functional strength---met 20 seconds Rn Bone Marrow Transplant Goals Time Frame for Chcf Goals : 6 weeks Chcf Goal 1: Pt will be safe and independent with his HEP Rn Bone Marrow Transplant Goal 2: Pt will increase L LE strength to >/=4-/5 and R LE strength to 4/5 in order toincrease ambulation tolerance-met (R LE: 4 to 4+/5; L LE: 4/5 grossly except ankle DF: 4-/5) Chcf Goal 3: Pt will be able to ambulate for 10 minutes with LRAD and no LOB with minimal fatigue in order to increase community ambulation-progressing (~5.5min max before fatigue/SOB requiring seated rest break) Rn Bone Marrow Transplant Goal 4: Pt will increase tinetti score to >/=20/28 in order to reduce fall risk Minutes Tracking: Time In: 1231 Time Out: 1315 Minutes: 44 Shirin Bajwa PTA Date: 10/03/2022 documented in this encounterBON [employer] Phone: [phone] History of Present illness Narrative* Shirin Bajwa, COOKING CHEF - 09/15/2022 1:00 PM EDT [facility] Outpatient Physical Therapy Daily Note Patient: Piotr Kerr : 1960 CSN #: [id number] Referring Physician: Jorge Pritchett DO Date: 09/15/2022 Onset Date: 08/13/22 PT Insurance Information: [employer] [place] Total # of Visits Approved: 12 Per Physician Order Total # of Visits to Date: 8 No Show: 0 Canceled Appointment: 0 Pre-Treatment Pain: not stated Subjective: Pt reports not feeling to bad today. he states he wasn't as fatigued as he usually was after his last visit. Pt reports today that his back pain he's been having is coming from my stage 3 kidney failure and wanted to have the therapists aware that it is the source of the back pain. Exercises: Exercise 1: HEP sink ex Exercise 2: Amb 3 big loop SPC Exercise 4: Heel raises/marches on foam x10 ea --no foam today; standing july x10 Exercise 6: Sit to stand with eccentric lowering 3x10 Exercise 9: Seated BLE ex 2x8-10 ea 2# ankle Assessment Assessment: Pt displaying improved tolerance to functional mobility. he was able to progress ambulate to 420 ft (3 laps) today vs the 140 ft (1 lap) he completed a few visits ago. Also added additional set with sit to stands to progress strength. Continues to require frequent RBs. Will progress as t olerated. Activity Tolerance Activity Tolerance: Patient tolerated treatment well Patient Education Ex technique, progression Pt verbalized/demonstrated good understanding: [x] Yes [] No, pt required further clarification. Post Treatment Pain: not stated Plan Plan Frequency: 2x/wk Plan weeks: 6 weeks Goals (Total # of Visits to Date: 8) Short Term Goals Time Frame for Short Term Goals: 3 weeks Short Term Goal 1: pt will be educated on his POC and HEP-met Short Term Goal 2: Pt will tolerate 45 minuts of exrecise/therapy with minimal rest breaks in orderto increase strength and endurance. Short Term Goal 3: Pt will be able to complete 5 sit to stand with good eccentric controla nd no LOB in </=30 seconds in order to improve functional strength---met 20 seconds Rn Bone Marrow Transplant Goals Time Frame for Rn Bone Marrow Transplant Goals : 6 weeks Chcf Goal 1: Pt will be safe and independent with his HEP Chcf Goal 2: Pt will increase L LE strength to >/=4-/5 and R LE strength to 4/5 in order toincrease ambulation tolerance Rn Bone Marrow Transplant Goal 3: Pt will be able to ambulate for 10 minutes with LRAD and no LOB with minimal fatigue in order to increase community ambulation Chcf Goal 4: Pt will increase tinetti score to >/20/28 in order to reduce fall risk Minutes Tracking: Time In: 1300 Time Out: 1342 Minutes: 42 Timed Code Treatment Minutes: 41 Minutes Shirin Bajwa PTA Date: 09/15/2022 documented in this encounterB[facility] [employer] Phone: [phone]) [phone] History of Present illness Narrative* Chris Sauceda, PT - 09/05/2022 3:30 PM EDT [facility] Outpatient Physical Therapy Daily Note Patient: Piotr Kerr : 1960 CSN #: [id number] Referring Physician: Jorge Pritchett DO Date: 09/05/2022 Treatment Diagnosis: weakness Onset Date: 08/13/22 PT Insurance Information: [employer] [place] Total # of Visits Approved: 12 Per Physician Order Total # of Visits to Date: 5 No Show: 0 Canceled Appointment: 0 Pre-Treatment Pain: 0/10 Subjective: Pt states he is a bit fatigued from a lot of walking earlier in the day. Pt is not having pain at this time, just tired. Exercises: Exercise 1: HEP sink ex Exercise 3: Seated ball roll outs 3x10 Exercise 5: Lateral stepping at counter 3 laps Exercise 8: Scifit 15min L 1 Exercise 10: Seated HS Stretch B 3x15 Exercise 11: Tandem Stance 3x15 B Exercise 12: GS Slantboard stretch 3x30 Exercise 13: B hip ER into Belt x10 Exercise 14: Ball hold + lift between feet for core activation + hip ER x10 Exercise 15: Stanidng lumbar extension at counter x10 Assessment Assessment: Pt did well with all stretches and core exercises this date. Dynamic standing therex was limited to tandem balance this date d/t excessive fatigue. Pt demonstrated good motor control withB hip ER and core activaion. Plan to continue to progress pt as tolerated to improve dynamic balance and activity tolerance. Activity Tolerance Activity Tolerance: Patient limited by endurance Patient Education Patient Education: pt educated on his POC and HEP Pt verbalized/demonstrated good understanding: [x] Yes [] No, pt required further clarification. Post Treatment Pain: 0/10 Plan Plan Frequency: 2x/wk Plan weeks: 6 weeks Goals (Total # of Visits to Date: 5) Short Term Goals Time Frame for Short Term Goals: 3 weeks Short Term Goal 1: pt will be educated on his POC and HEP-met Short Term Goal 2: Pt will tolerate 45 minuts of exrecise/therapy with minimal rest breaks in orderto increase strength and endurance. Short Term Goal 3: Pt will be able to complete 5 sit to stand with good eccentric controla nd no LOB in </=30 seconds in order to improve functional strength\ Chcf Goals Time Frame for Rn Bone Marrow Transplant Goals : 6 weeks Chcf Goal 1: Pt will be safe and independent with his HEP Rn Bone Marrow Transplant Goal 2: Pt will increase L LE strength to >/=4-/5 and R LE strength to 4/5 in order toincrease ambulation tolerance Rn Bone Marrow Transplant Goal 3: Pt will be able to ambulate for 10 minutes with LRAD and no LOB with minimal fatigue in order to increase community ambulation Rn Bone Marrow Transplant Goal 4: Pt will increase tinetti score to >/20/28 in order to reduce fall risk Minutes Tracking: Time In: 2 Time Out: 1628 Minutes: 56 Timed Code Treatment Minutes: 54 Minutes Chris Sauceda PT Date: 09/05/2022 documented in this encounterBON [facility] [employer] Phone: [phone]) [phone] History of Present illness Narrative* Shirin Bajwa, COOKING CHEF - 08/29/2022 2:45 PM EDT [facility] Outpatient Physical Therapy Daily Note Patient: Piotr Kerr : 1960 CSN #: [id number] Referring Physician: Jorge Pritchett DO Date: 08/29/2022 Treatment Diagnosis: weakness Onset Date: 08/13/22 PT Insurance Information: [employer] [place] Total # of Visits Approved: 12 Per Physician Order Total # of Visits to Date: 3 No Show: 0 Canceled Appointment: 0 Pre-Treatment Pain: 2-3/10 Subjective: Pt reports 2-3/10 L shoulder pain currently. He reports continued fatigue and general weakness. He states the walk from waiting room to the scifit bike makes him winded. Exercises: Exercise 1: HEP sink ex Exercise 2: 1 laps around clinic with SPC x2 -- 1 big loop today Exercise 3: Seated ball roll outs 3x10 Exercise 4: Heel raises/marches on foam x10 ea Exercise 5: Lateral stepping at counter 3 laps Exercise 6: Sit to stand with eccentric lowering x10 Exercise 8: Scifit 15min L 1 Assessment Assessment: pt progressed with ambulating 1 large loop (140 ft). Pt is guarded with gait and displays instability as gait distance increased. No LOB overall. 3 seated RBs d/t fatigue and noted SOB. Pt demo'd fair eccentric control with sit to stand exercise today. WIll continue as tolerated Activity Tolerance Activity Tolerance: Patient tolerated treatment well Patient Education Ex technique, rationale Pt verbalized/demonstrated good understanding: [x] Yes [] No, pt required further clarification. Post Treatment Pain: 2-3 /10 Plan Plan Frequency: 2x/wk Plan weeks: 6 weeks Goals (Total # of Visits to Date: 3) Short Term Goals Time Frame for Short Term Goals: 3 weeks Short Term Goal 1: pt will be educated on his POC and HEP-met Short Term Goal 2: Pt will tolerate 45 minuts of exrecise/therapy with minimal rest breaks in orderto increase strength and endurance. Short Term Goal 3: Pt will be able to complete 5 sit to stand with good eccentric controla nd no LOB in </=30 seconds in order to improve functional strength Chcf Goals Time Frame for Chcf Goals : 6 weeks Rn Bone Marrow Transplant Goal 1: Pt will be safe and independent with his HEP Chcf Goal 2: Pt will increase L LE strength to >/=4-/5 and R LE strength to 4/5 in order toincrease ambulation tolerance Rn Bone Marrow Transplant Goal 3: Pt will be able to ambulate for 10 minutes with LRAD and no LOB with minimal fatigue in order to increase community ambulation Chcf Goal 4: Pt will increase tinetti score to >/20/28 in order to reduce fall risk Minutes Tracking: Time In: 1445 Time Out: 1528 Minutes: 43 Shirin Bajwa, COOKING [employer]F Date: 08/29/2022 documented in this encounterB[facility] [employer] Phone: [phone]) [phone] History of Present illness Narrative* Chris Sauceda PT - 08/25/2022 2:45 PM EDT [facility] Outpatient Physical Therapy Daily Note Patient: Piotr Kerr : 1960 CSN #: [id number] Referring Physician: Jorge Pritchett DO Date: 08/25/2022 Treatment Diagnosis: weakness Onset Date: 08/13/22 PT Insurance Information: [employer] [place] Total # of Visits Approved: 12 Per Physician Order Total # of Visits to Date: 2 No Show: 0 Canceled Appointment: 0 Pre-Treatment Pain: 0/10 Subjective: Pt states he is doing well today, just working through his overall increased level of fatigue and balance overall. No pain to note at this time. Exercises: Exercise 1: HEP sink ex Exercise 2: 1 laps around clinic with SPC x2 Exercise 3: Seated ball roll outs 3x10 Exercise 4: Heel raises/marches on foam x10 ea Exercise 5: Lateral stepping at counter 3 laps Exercise 6: Sit to stand with eccentric lowering x10 Exercise 7: Box-Cone drill, 3x CC/ 3x CCW Exercise 8: Scifit 15min at end of session Assessment Assessment: Pt did very well with all exercises in the clinic this date. Pt demonstrated good balance with box stepping stepping activity, demonstrating 1 mild LoB with self correction. Pt also demonstrated good motor control with lateral stepping and sit to stand exercise. Plan to continue to progress pt as tolerated. Activity Tolerance Activity Tolerance: Patient tolerated treatment well Patient Education Patient Education: pt educated on his POC and HEP Pt verbalized/demonstrated good understanding: [x] Yes [] No, pt required further clarification. Post Treatment Pain: 0/10 Plan Plan Frequency: 2x/wk Plan weeks: 6 weeks Goals (Total # of Visits to Date: 2) Short Term Goals Time Frame for Short Term Goals: 3 weeks Short Term Goal 1: pt will be educated on his POC and HEP-met Short Term Goal 2: Pt will tolerate 45 minuts of exrecise/therapy with minimal rest breaks in orderto increase strength and endurance. Short Term Goal 3: Pt will be able to complete 5 sit to stand with good eccentric controla nd no LOB in </=30 seconds in order to improve functional strength Chcf Goals Time Frame for Chcf Goals : 6 weeks Rn Bone Marrow Transplant Goal 1: Pt will be safe and independent with his HEP Rn Bone Marrow Transplant Goal 2: Pt will increase L LE strength to >/=4-/5 and R LE strength to 4/5 in order toincrease ambulation tolerance Chcf Goal 3: Pt will be able to ambulate for 10 minutes with LRAD and no LOB with minimal fatigue in order to increase community ambulation Chcf Goal 4: Pt will increase tinetti score to >/20/28 in order to reduce fall risk Minutes Tracking: Time In: 1443 Time Out: 1541 Minutes: 58 Timed Code Treatment Minutes: 55 Minutes Chris Sauceda PT Date: 08/25/2022 documented in this encounterBON [facility] Phone: [phone]) [phone] History of Present illness Narrative* Kelly Amaya PT - 08/20/2022 1:00 PM EDT [facility] Outpatient Physical Therapy Evaluation Date: 08/20/2022 Patient: Piotr Conleybailey : 1960 CSN #: [id number] Referring Physician: Jorge Pritchett DO Medical Diagnosis: M54.50 low back pain, R29.898 weakness Treatment Diagnosis: weakness Onset Date: 08/13/22 PT Insurance Information: [employer] [place] Total # of Visits Approved: 12 Total # of Visits to Date: 1 Subjective Subjective: Pt reports he had a L sided CVA in 06/2019 and has received previous therapy in that past with the last episode ending in Apr 2022. Pt reports he had to stop because of insurance and prostate surgery. Pt underwent prostate surgery in Jun of this year and reports he now has increased weakness and fatigue from surgery. Pt denies any falls but states his endurance and balance has gotten worse. Additional Pertinent Hx: L sided CVA, HTN, 3 stents, OA, diabetes, sleep apnea Observations: General Observations Description: 30 second sit to stand test (4) with BUE support and Moderate SOB and fatigue Ambulation/Gait (if applicable): Ambulation Device: Single point cane Assistance: Contact guard assistance Gait Deviations: Staggers Distance: 310 feet Comments: 3 LOB with ambulation and moderate SOB Strength Strength LLE L Hip Flexion: 3+/5 L Hip ABduction: 3/5 L Hip ADduction: 3+/5 L Knee Flexion: 3+/5 L Knee Extension: 3+/5 L Ankle Dorsiflexion: 3/5 Special Tests: Strength RLE R Hip Flexion: 4-/5 R Hip ABduction: 4-/5 R Hip ADduction: 4/5 R Knee Flexion: 4-/5 R Knee Extension: 4-/5 R Ankle Dorsiflexion: 4-/5 Strength LLE L Hip Flexion: 3+/5 L Hip ABduction: 3/5 L Hip ADduction: 3+/5 L Knee Flexion: 3+/5 L Knee Extension: 3+/5 L Ankle Dorsiflexion: 3/5 Exercises: Exercise 1: HEP sink ex Functional Outcome Measures Sitting Balance: Steady, safe Arises: Able, uses arms to help Attempts to Arise: Able to arise, one attempt Immediate Standing Balance (First 5 Seconds): Steady but uses walker or other support Standing Balance: Steady but wide stance, uses cane or other support Nudged: Begins to fall Eyes Closed: Unsteady Turned 360 Degrees: Steadiness: Unsteady (grabs, staggers) Turned 360 Degrees: Continuity of Steps: Discontinuous steps Sitting Down: Uses arms or not a smooth motion Initiation of Gait: No hesitancy Step Height: R Swing Foot: Right foot complete clears floor Step Length: R Swing Foot: Passes left stance foot Step Height: L Swing Foot: Left foot does not clear floor completely with step Step Length: L Swing Foot: Does not pass right stance foot with step Step Symmetry: Right and left step length not equal (estimate) Step Continuity: Stopping or discontinuity between steps Path: Mild/moderate deviation or uses walking aid Trunk: Marked sway or uses walking aid Walking Time: Heels apart Gait Score: 4 Tinetti Total Score: 11 Assessment Assessment: Pt is a 62 year old male that has a history of a CVA 3 years ago affecting L side, pt has had therapy in the past but presents with a new onset of weakness due to prostate surgery. Pt presents with decreased BLE strength, decreased dynamic standing balance, difficulty with ambulation and reduced endurance. Pt will benefit from skilled PT in order to address these deficits. Therapy Prognosis: Good Decision Making: Medium Complexity Patient Education Patient Education: pt educated on his POC and HEP Pt verbalized/demonstrated good understanding: [X] Yes [] No, pt required further clarification. Goals Short Term Goals Time Frame for Short Term Goals: 3 weeks Short Term Goal 1: pt will be educated on his POC and HEP-met Short Term Goal 2: Pt will tolerate 45 minuts of exrecise/therapy with minimal rest breaks in orderto increase strength and endurance. Short Term Goal 3: Pt will be able to complete 5 sit to stand with good eccentric controla nd no LOB in </=30 seconds in order to improve functional strength Chcf Goals Time Frame for Chcf Goals : 6 weeks Chcf Goal 1: Pt will be safe and independent with his HEP Rn Bone Marrow Transplant Goal 2: Pt will increase L LE strength to >/=4-/5 and R LE strength to 4/5 in order toincrease ambulation tolerance Chcf Goal 3: Pt will be able to ambulate for 10 minutes with LRAD and no LOB with minimal fatigue in order to increase community ambulation Chcf Goal 4: Pt will increase tinetti score to >/20/28 in order to reduce fall risk Patient Goals : to get my strength back Minutes Tracking: Time In: 1252 Time Out: 1350 Minutes: 58 Timed Code Treatment Minutes: 56 Minutes Kelly Amaya PT, DPT 08/20/2022 documented in this encounterBON [employer] Phone: 1(371) 471-909703-20-2023 Evaluation note* Encounter Date Diagnosis Assessment Notes Treatment Notes Treatment Clinical Notes Jul, ASHD (arteriosclerot ic heart disease) (ICD-10 - I25.10) This patient is stable without activity related CP, dyspnea or lightheadedness. They are instructed to continue exercise and AHA diet plan. Jul, Stage 3a chronic kid kana disease (ICD-10 - N18.31) The patient is instructed on adequate control of hypertension and diabetes, if appropriate. They are also educated on the associated risks of NSAIDs and PPI use with kidney disease. They were instructed on adequate fluid balance and to avoid dehydration. Jul, Essential hypertensi on (ICD-10 - I10) This patient is instructed to consume a healthy, low-fat, low-salt diet. They are also encouraged to continue exercise to achieve/maintain a normal BMI. Jul, Type 2 diabetes iris itus with hyperglycemia (ICD-10 - E11.65) < 100 none, 101-150 4u, 151-200 10u, 201-250 18u, 251-300 24u, > 300 30u This patient is following a comprehensive diabetic treatment plan. They are checking their feet daily for calluses and nonhealing ulcers. They are being seen for yearly dilated eye examinations. Goals: SBP less than 130, LDL less than 100, FBS less than 140, AC and A1C less than 7%. They are checking their BS daily, will which are reviewed at the office visit. A1C:due Jul, Type 2 diabetes iris itus with diabetic peripheral angiopathy without gangrene (ICD-10 - E11.51) Inspect feet daily for cuts and calluses.Recommend diabetic shoes and inserts to prevent callus formation.Fall precautions. Walk daily Jul, Pure hypercholestero lemia (ICD-10 - E78.00) Diet and exercise with continued statin therapy. Jul, Obstructive sleep ap ellyn (ICD-10 - G47.33) This patient is aware of the benefits associated with CHRIS: With continued use, the patient reduces the risk for PA, CVA, HTN, cardiac dysrhythmias and sudden cardiac deaths.The patient is also aware of the association between CHRIS and morning headaches, daytime somnolence, fatigue and obesity, which also has been improved with continued use.The patient is compliant with treatment, wearing the equipment every night for greater than 4 hours.The patient is instructed to continue use of the CPAP for CHRIS treatment. 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 Diaz catheter care reviewed and demonstrated to patient. Patient and verbalize understanding and denies any questions at this time. Kenya Irizarry LITERACY EDUCATION PROFESSOR notified of patients BP. Patient states that he normally takes his BP medications in the evening at dinner time. Per Kenya Irizarry LITERACY EDUCATION PROFESSOR patient is to take BP medication when they get home. Patient notified and verbalizes understanding. Discharge Criteria Inpatients must meet Criteria 1 through 7. All other patients are either YES or N/A. If a NO is chosen then Anesthesia or Surgeon must be notified. 1. Minimum 30 minutes after last dose of sedative medication, minimum 120 minutes after last dose of reversal agent. Yes 2. Systolic BP stable within 20 mmHg for 30 minutes & systolic BP between 90 & 180 or within 10 mmHg of baseline. Yes 3. Pulse between 60 and 100 or within 10 bpm of baseline. Yes 4. Spontaneous respiratory rate >/= 10 per minute. Yes 5. SaO2 >/= 95 or >/= baseline. Yes 6. Able to cough and swallow or return to baseline function. Yes 7. Alert and oriented or return to baseline mental status. Yes 8. Demonstrates controlled, coordinated movements, ambulates with steady gait, or return to baseline activity function. Yes 9. Minimal or no pain or nausea, or at a level tolerable and acceptable to patient. Yes 10. Takes and retains oral fluids as allowed. Yes 11. Procedural / perioperative site stable. Minimal or no bleeding. Yes 12. If GI endoscopy procedure, minimal or no abdominal distention or passing flatus. N/A 13. Written discharge instructions and emergency telephone number provided. Yes 14. Accompanied by a responsible adult. Yes * Elle Fofana RN - 07/01/2022 12:41 PM EST Patient instructed on the pre-operative, intra-operative, and post-operative process. Patient instructed on NPO status. Medication instructions and pre operative instruction sheet reviewed with the patient. Instructed pt to stop taking all OTC vitamins 7 days prior to surgery and is seeing Dr. Kan for pre- op aspirin recommendations and cardiac clearance. documented in this encounterBON [facility] [employer] Phone: 1(871) [phone] Hospital Discharge instructions* Discharge Instructions* Julissa Campbell RN - 07/15/2022 2:37 PM EST SAME DAY SURGERY DISCHARGE INSTRUCTIONS 1. Do not drive or operate hazardous machinery for 24 hours. 2. Do not make important personal or business decisions for 24 hours. 3. Do not drink alcoholic beverages for 24 hours. 4. Do not smoke tobacco products for 24 hours. 5. Eat light foods (Jell-O, soups, etc....) and drink plenty of fluids (water, Sprite, etc...) up to 8 glasses per day, as you can tolerate. 6. Limit your activities for 24 hours. Do not engage in heavy work until your surgeon gives you permission. 7. Patient should not be left alone for 12-24 hours following surgical procedure. 8. Wash hands before and after incision care. It is important to practice good personal hygiene during the post op period. 9. Report the following signs or any questions regarding your physical condition to your surgeon immediately: Excessive swelling of, or around the wound area. Redness. Temperature of 100 degrees (F) or above. Excessive pain. 10. Call your surgeon for any questions regarding your surgery. CYSTOSCOPY DISCHARGE INSTRUCTIONS Possible burning during urination and/or blood tinged urine. Drink 6-8 glasses of water for the next day or so. (This helps to flush the urinary tract.) Diaz Catheter care as instructed. Diaz Catheter Care Instructions A urinary catheter is used when you cannot urinate by yourself. This may occur because of medical conditions, such as prostate enlargement and incontinence, or after surgery. Your doctor will decide how long you need to have the catheter. To care for your catheter: Make sure that urine is flowing out of the catheter into the drainage bag. Do not loop or kink the tubing so urine can flow out of catheter into drainage bag. Check the area around the urethra for inflammation or signs of infection, such as irritated, swollen, red or tender skin at the insertion site or drainage around the catheter. Keep the urinary drainage bag below the level of the bladder. Make sure that the urinary drainage bag does not drag and pull on the catheter. Do not let the drainage bag touch or lie on the floor. Cleaning the catheter: Always wash your hands before and after caring for your catheter. Clean the area around the drainage tube twice each day. Use soap and water to carefully wash around the drainage tube. Rinse well and dry with a clean towel. Do not tug or pull on the drainage tube. Caring for the drainage bag: Always wash your hands before and after emptying your drainage bag. Avoid disconnecting the catheter from the tubing unless instructed to do so by your doctor. Do not allow the ends of the tubings to touch anything. Clean the ends with a new alcohol pad or as directed by your doctor before you reconnect them. Empty the drainage bag when needed. Empty the bag every 3-6 hours or when it is half to two-thirds full. Call the doctor immediately if you experience any of the following: Fever over 100 degrees. Prolonged soreness/pain. Unusual bleeding/bruising. If urine is bloody or notice blood clots in urine. You cannot pass urine 8 hours after the test. Your urine has a foul odor or has a cloudy or milky appearance. You have pain in your belly or your back just below your rib cage. (This is called flank pain.) Call Dr. Ferrer ([phone]) if you develop: Fever over 100 degrees Prolonged soreness/pain Unusual bleeding/bruising Unable to urinate or if urine is bloody You cannot pass urine 8 hours after the test. You have pain in your belly or your back just below your rib cage. (This is called flank pain.) You have frequent urge to urinate but can pass only small amounts of urine. Call Dr. Ferrer office for follow-up appointment ([phone]). documented in this [facility] [employer] Phone: [phone]) 180-914402-21-2023 Evaluation note* Encounter Date Diagnosis Assessment Notes Treatment Notes Treatment Clinical Notes Jun, Cardiomyopathy, ischemic (ICD-10 - I25.5) NM stress: inferolateral ischemia 06/2022 [employer] Other 02-17-2023 History of Present illness Narrative* Fatmata Cecilia - 07/11/2022 10:00 AM EST Explained policies and procedure of an echocardiogram/Doppler study. [facility] [employer] Phone: 1(358) 289-842402-17-2023 History of Present illness Narrative* Alie Dunn RN - 07/11/2022 9:15 AM EST Instructed on objectives and procedure of lexiscan/cardiolite stress test. documented in this [facility] [employer] Phone: 1(134) 600-534002-08-2023 Evaluation note* Encounter Date Diagnosis Assessment Notes Treatment Notes Treatment Clinical Notes Jun, Preop exam for internal medicine (ICD-10 - Z01.818) Reviewed medication w/ patient. He will be discussing stop date for his Aspirin and Plavix with his [employer]. Jun, ASHD (arteriosclerotic heart disease) (ICD-10 - I25.10) Stable w/o activity limiting symptoms. He is aware of the increased risk for PA when off DAPT. Jun, Primary hypertension (ICD-10 - I10) Stable, continue medication w/o interruption Jun, Type 2 diabetes mellitus with hyperglycemia (ICD-10 - E11.65) Stable, he has been instructed to decrease his basal insulin from 44u to 22u the night prior to surgery and to hold his morning dose of insulin on day of surgery. Jun, Stage 3a chronic kidney disease (ICD-10 - N18.31) Stable, avoid NSAIDs. Jun, Benign prostatic hyperplasia with lower urinary tract symptoms (ICD-10 - N40.1) Surgery planned for LUTS Jun, Hx of cerebral infarction (ICD-10 - Z86.73) Stable, continue secondary prevention measures. He is aware of the increased risk for cerebral thrombosis with d/c DAPT. Jun, Other St[employer] Other [id number] History of Present illness Narrative* Huang Urbina, PT - 05/22/2022 1:15 PM EST [facility] Outpatient Physical Therapy Daily Note Patient: Piotr Kerr : 1960 CSN #: [id number] Referring Physician: Jorge Pritchett DO Date: 05/22/2022 Treatment Diagnosis: Difficulty walking PT Insurance Information: [employer] [place] Total # of Visits Approved: 45 Per Physician Order Total # of Visits to Date: 43 No Show: 0 Canceled Appointment: 0 Pre-Treatment Pain: 0/10 Subjective: Patient reports he had a rough week and reports he was diagnosed with a UTI. He reportsincreased weakness and fatigue. Exercises: Exercise 2: SciFit bike 10 mins level 3.5 Exercise 3: lateral walking at counter 4 laps big steps Exercise 6: sit<>stands 2x12 Exercise 7: SC amb 1 large loop x2 Exercise 9: FSU 6 x10 ea Exercise 11: UBE x3/3 seated Assessment Body Structures, Functions, Activity Limitations Requiring Skilled Therapeutic Intervention: Decreased functional mobility Assessment: Resumed his exercise program after last being seen on 05/06/22 due to a UTI and other issues. He required a few seated rest breaks due to muscular fatigue and SOB during today's session. He was educated to continue with his HEP. Activity Tolerance Activity Tolerance: Patient limited by fatigue, Patient limited by endurance Patient Education Patient Education: HEP Pt verbalized/demonstrated good understanding: [x] Yes [] No, pt required further clarification. Post Treatment Pain: 0/10 Plan Plan Frequency: 2 Plan weeks: 6 Goals (Total # of Visits to Date: 43) Short Term Goals Time Frame for Short Term Goals: 3 weeks Short Term Goal 1: Patient to initiate HEP for improved B LE strength and endurance.-met/cont Short Term Goal 2: Patient to tolerate 45 min of ther ex/act with minimal rest breaks to improve endurance.-met Short Term Goal 3: Patient to be able to complete 5 sit/stands in </=30seconds with good eccentric control and no LOB to improve functional strength. -MET [facility] Goals Time Frame for Chcf Goals : 6 weeks [facility] Goal 1: Patient to be independent and compliant with HEP.--met [facility] Goal 2: Patient to have improved L LE strength >/=4-/5 and R LE >/=4/5 grossly for improved ease with transfers and ambulation. Chcf Goal 3: Patient to be able to stand/walk >/=5 mins with LRAD and no LOB or fatigue with SpO2 >/=90% for improved functional endurance.-met Rn Bone Marrow Transplant Goal 4: Patient to have improved Tinetti balance score >/=19/28 to decrease fall risk. Rn Bone Marrow Transplant Goal 5: Updated: Pt to stand/ambulate >/=10minutes with LRAD and no LOB or fatigue to improve endurance. Minutes Tracking: Time In: 1321 Time Out: 1414 Minutes: 53 Timed Code Treatment Minutes: 41 Minutes Huang Urbina PT, DPT Date: 05/22/2022 [facility] Work Phone: [phone]) 908-419011-07-2022 History of Present illness Narrative* Chris Sauceda, GRACY - 03/31/2022 4:30 PM EST [facility] Outpatient Physical Therapy Daily Note Patient: Piotr Kerr : 1960 CSN #: [id number] Referring Physician: Jorge Pritchett DO Date: 03/31/2022 Treatment Diagnosis: Difficulty walking PT Insurance Information: [employer] [place] Total # of Visits Approved: 45 Per Physician Order Total # of Visits to Date: 32 No Show: 0 Canceled Appointment: 0 Pre-Treatment Pain: 2-3/10 Subjective: Pt states doing well this date, notes only usual back pain. Exercises: Exercise 1: HEP: sink exercises x10 with chair close by Exercise 2: SciFit bike 10 mins level 3.5 Exercise 3: island walks 5 laps GTB Exercise 4: sink ex 10x Exercise 7: SC amb [id number] Exercise 9: Heel/toe raises + lateral step overs on foam, x10 ea Exercise 13: Lumbar Flex/Ext therex with ball, x15 ea Exercise 14: Seated HS stretch 3x15 B Exercise 15: Tandem Blanace 4x10 B Assessment Body Structures, Functions, Activity Limitations Requiring Skilled Therapeutic Intervention: Decreased functional mobility Assessment: Pt did well with all functional activities and exercises in the clinic this date. Pt comes in to the clinic for a later session today than normally which may have contriubuted to a slightincrease in fatigue. Plan to continue with gait training and functional strength triaining as tolerated. Activity Tolerance Activity Tolerance: Patient tolerated treatment well, Patient limited by endurance Patient Education Patient Education: HEP Pt verbalized/demonstrated good understanding: [x] Yes [] No, pt required further clarification. Post Treatment Pain: 0/10 Plan Plan Frequency: 2 Plan weeks: 6 Goals (Total # of Visits to Date: 32) Short Term Goals Time Frame for Short Term Goals: 3 weeks Short Term Goal 1: Patient to initiate HEP for improved B LE strength and endurance.-met/cont Short Term Goal 2: Patient to tolerate 45 min of ther ex/act with minimal rest breaks to improve endurance.-met Short Term Goal 3: Patient to be able to complete 5 sit/stands in </=30seconds with good eccentric control and no LOB to improve functional strength. -MET [facility] Goals Time Frame for Rn Bone Marrow Transplant Goals : 6 weeks Rn Bone Marrow Transplant Goal 1: Patient to be independent and compliant with HEP.--met [facility] Goal 2: Patient to have improved L LE strength >/=4-/5 and R LE >/=4/5 grossly for improved ease with transfers and ambulation. Ch[facility] Goal 3: Patient to be able to stand/walk >/=5 mins with LRAD and no LOB or fatigue with SpO2 >/=90% for improved functional endurance.-met Rn Bone Marrow Transplant Goal 4: Patient to have improved Tinetti balance score >/=19/28 to decrease fall risk. Ch[facility] Goal 5: Updated: Pt to stand/ambulate >/=10minutes with LRAD and no LOB or fatigue to improve endurance. Minutes Tracking: Time In: 1632 Time Out: 1722 Minutes: 50 Timed Code Treatment Minutes: 48 Minutes Chris Sauceda PT Date: 03/31/2022 documented [facility] [facility] [employer] Phone: 1(245) 898-723011-02-2022 History of Present illness Narrative* Shirin Bajwa PTA - 03/26/2022 2:30 PM EDT [facility] Outpatient Physical Therapy Daily Note Patient: Piotr Kerr : 1960 CSN #: [id number] Referring Physician: Jorge Pritchett DO Date: 03/26/2022 Diagnosis: Weakness of both LE's, R29.898 Treatment Diagnosis: Difficulty walking PT Insurance Information: [employer] [place] Total # of Visits Approved: 45 Per Physician Order Total # of Visits to Date: 30 No Show: 0 Canceled Appointment: 0 Pre-Treatment Pain: not stated Subjective: Patient reports back pain continues d/t UTI. Exercises: Exercise 1: HEP: sink exercises x10 with chair close by Exercise 2: SciFit bike 10 mins level 3.5 Exercise 3: island walks 5 laps GTB Exercise 6: sit<>stands 2x10 with 8# ball Exercise 7: SC amb [id number] Exercise 10: ignacio step overs (small) forward x10 ea Assessment Assessment: No increased back pain reported today with tx. He took multiple seated RBs d/t fatigue.Continued with strengthening/edurance based ex to progress towards his goals. WIll continue as tolerated. Activity Tolerance Activity Tolerance: Patient tolerated treatment well, Patient limited by endurance Patient Education Ex technique Pt verbalized/demonstrated good understanding: [x] Yes [] No, pt required further clarification. Post Treatment Pain: not stated Plan Plan Frequency: 2 Plan weeks: 6 Goals (Total # of Visits to Date: 30) Short Term Goals Time Frame for Short Term Goals: 3 weeks Short Term Goal 1: Patient to initiate HEP for improved B LE strength and endurance.-met/cont Short Term Goal 2: Patient to tolerate 45 min of ther ex/act with minimal rest breaks to improve endurance.-met Short Term Goal 3: Patient to be able to complete 5 sit/stands in </=30seconds with good eccentric control and no LOB to improve functional strength. -MET Rn Bone Marrow Transplant Goals Time Frame for Rn Bone Marrow Transplant Goals : 6 weeks Rn Bone Marrow Transplant Goal 1: Patient to be independent and compliant with HEP.--met [facility] Goal 2: Patient to have improved L LE strength >/=4-/5 and R LE >/=4/5 grossly for improved ease with transfers and ambulation. Rn Bone Marrow Transplant Goal 3: Patient to be able to stand/walk >/=5 mins with LRAD and no LOB or fatigue with SpO2 >/=90% for improved functional endurance.-met Rn Bone Marrow Transplant Goal 4: Patient to have improved Tinetti balance score >/=19/28 to decrease fall risk. Rn Bone Marrow Transplant Goal 5: Updated: Pt to stand/ambulate >/=10minutes with LRAD and no LOB or fatigue to improve endurance. Minutes Tracking: Time In: 1433 Time Out: 1511 Minutes: 38 Shirin Bajwa PTA Date: 03/26/2022 [facility] [employer] Phone: [phone]) 417-691310-31-2022 History of Present illness Narrative* Huang Urbina, PT - 03/24/2022 3:00 PM EDT [facility] Outpatient Physical Therapy Daily Note Patient: Piotr Kerr : 1960 CSN #: [id number] Referring Physician: Jorge Pritchett DO Date: 03/24/2022 Treatment Diagnosis: Difficulty walking PT Insurance Information: [employer] [place] Total # of Visits Approved: 36 Per Physician Order Total # of Visits to Date: 29 No Show: 0 Canceled Appointment: 0 Pre-Treatment Pain: 4/10 Subjective: Patient reports he was found to have UTI. He is currently being tx and reports decreasing LBP. He reports 4/10 LBP coming into therapy. Exercises: Exercise 2: SciFit bike 10 mins level 3.5 Exercise 6: sit<>stands 2x8 with 8# ball Exercise 7: SC amb 350' then 175', reciprocal steps x8 Exercise 10: ignacio step overs (small) forward x10 ea Assessment Body Structures, Functions, Activity Limitations Requiring Skilled Therapeutic Intervention: Decreased functional mobility Assessment: Patient was able to increase ambulation distance by 175' today. He was also able to perform sit to stands with resistance to continue to work toward his long-term strength goals. He reported fatigue following his tx session. Activity Tolerance Activity Tolerance: Patient tolerated treatment well, Patient limited by endurance Patient Education Patient Education: HEP Pt verbalized/demonstrated good understanding: [x] Yes [] No, pt required further clarification. Post Treatment Pain: 10 Plan Plan Frequency: 2 Plan weeks: 6 Goals (Total # of Visits to Date: 29) Short Term Goals Time Frame for Short Term Goals: 3 weeks Short Term Goal 1: Patient to initiate HEP for improved B LE strength and endurance.-met/cont Short Term Goal 2: Patient to tolerate 45 min of ther ex/act with minimal rest breaks to improve endurance.-met Short Term Goal 3: Patient to be able to complete 5 sit/stands in </=30seconds with good eccentric control and no LOB to improve functional strength. -MET Rn Bone Marrow Transplant Goals Time Frame for Chcf Goals : 6 weeks [facility] Goal 1: Patient to be independent and compliant with HEP.--met Rn Bone Marrow Transplant Goal 2: Patient to have improved L LE strength >/=4-/5 and R LE >/=4/5 grossly for improved ease with transfers and ambulation. Chcf Goal 3: Patient to be able to stand/walk >/=5 mins with LRAD and no LOB or fatigue with SpO2 >/=90% for improved functional endurance.-progressing Rn Bone Marrow Transplant Goal 4: Patient to have improved Tinetti balance score >/=19/28 to decrease fall risk. Minutes Tracking: Time In: 1505 Time Out: 1550 Minutes: 45 Timed Code Treatment Minutes: 43 Minutes Huang Urbina PT, DPT Date: 03/24/2022 documented in this [facility] [facility] [employer] Work Phone: [phone]) 922-506610-25-2022 History of Present illness Narrative* Chris Sauceda, PT - 03/18/2022 1:45 PM EDT [facility] Outpatient Physical Therapy Daily Note Patient: Piotr Kerr : 1960 CSN #: [id number] Referring Physician: Jorge Pritchett DO Date: 03/18/2022 Treatment Diagnosis: Difficulty walking Total # of Visits Approved: 36 Per Physician Order Total # of Visits to Date: 28 No Show: 0 Canceled Appointment: 0 Pre-Treatment Pain: 0/10 Subjective: Pt states he is doing well today, but has been noticing spikes in back pain that can get as high as 8/10. Pt notes no pain at this moment. Exercises: Exercise 1: HEP: sink exercises x10 with chair close by Exercise 2: SciFit bike 10 mins Exercise 6: sit<>stands x8 standing on foam Exercise 7: SC amb 350' then recip stairs x8 Exercise 9: Heel/toe raises + lateral step overs on foam, x10 ea Exercise 12: Box cone drill x11 (variations) Assessment Body Structures, Functions, Activity Limitations Requiring Skilled Therapeutic Intervention: Decreased functional mobility Assessment: Pt did well with walkinga nd stepping therex this date, able to make it around the entire gym 3 times and able to complete 4 bouts of box drill variations before needing to rest. Pt had some mild relief with lumbar stretching as well this date. Will continue to progress as tolerated. Activity Tolerance Activity Tolerance: Patient tolerated treatment well, Patient limited by endurance Patient Education Patient Education: HEP Pt verbalized/demonstrated good understanding: [x] Yes [] No, pt required further clarification. Post Treatment Pain: 0/10 Plan Plan Frequency: 2 Plan weeks: 6 Goals (Total # of Visits to Date: 28) Short Term Goals Time Frame for Short Term Goals: 3 weeks Short Term Goal 1: Patient to initiate HEP for improved B LE strength and endurance.-met/cont Short Term Goal 2: Patient to tolerate 45 min of ther ex/act with minimal rest breaks to improve endurance.-met Short Term Goal 3: Patient to be able to complete 5 sit/stands in </=30seconds with good eccentric control and no LOB to improve functional strength. -MET Rn Bone Marrow Transplant Goals Time Frame for Rn Bone Marrow Transplant Goals : 6 weeks Ch[facility] Goal 1: Patient to be independent and compliant with HEP.--met [facility] Goal 2: Patient to have improved L LE strength >/=4-/5 and R LE >/=4/5 grossly for improved ease with transfers and ambulation. Rn Bone Marrow Transplant Goal 3: Patient to be able to stand/walk >/=5 mins with LRAD and no LOB or fatigue with SpO2 >/=90% for improved functional endurance.-progressing Ch[facility] Goal 4: Patient to have improved Tinetti balance score >/=/28 to decrease fall risk. Minutes Tracking: Time In: 1358 Time Out: 1457 Minutes: 59 Timed Code Treatment Minutes: 55 Minutes Chris Sauceda PT Date: 03/18/2022 [facility] [employer] Work Phone: [phone] History of Present illness Narrative* Yumiko Montes, ALEXANDRA - 03/14/2022 12:45 PM EDT [facility] Outpatient Physical Therapy Daily Note Patient: Piotr Kerr : 1960 CSN #: [id number] Referring Physician: Jorge Pritchett DO Date: 03/14/2022 Treatment Diagnosis: Difficulty walking PT Insurance Information: [employer] [place] Total # of Visits Approved: 36 Per Physician Order Total # of Visits to Date: 27 No Show: 0 Canceled Appointment: 0 Pre-Treatment Pain: 0/10 Subjective: Pt. reports overall doing well but does still continue to have abdominal issues and continues it to believe from medication. Exercises: Exercise 2: SciFit bike 10 mins 4.0 (hills) Exercise 3: island walks 5 laps GTB Exercise 6: sit<>stands 10x3 (black chair) Exercise 7: SC amb 350' then recip stairs x8 Exercise 8: ignacio taps at counter (small) 10x ea Exercise 12: Box cone drill x4 Assessment Body Structures, Functions, Activity Limitations Requiring Skilled Therapeutic Intervention: Decreased functional mobility Assessment: Pt. toelrated treatment well but still continues to struggle with endurance. Pt. able to perform steps 8x and increased cone drill x4.Will continue to progress per pt. [place]. Activity Tolerance Activity Tolerance: Patient tolerated treatment well, Patient limited by endurance Patient Education Patient Education: HEP Pt verbalized/demonstrated good understanding: [x] Yes [] No, pt required further clarification. Post Treatment Pain: 0/10 Plan Plan Frequency: 2 Plan weeks: 6 Goals (Total # of Visits to Date: 27) Short Term Goals Time Frame for Short Term Goals: 3 weeks Short Term Goal 1: Patient to initiate HEP for improved B LE strength and endurance.-met/cont Short Term Goal 2: Patient to tolerate 45 min of ther ex/act with minimal rest breaks to improve endurance.-met Short Term Goal 3: Patient to be able to complete 5 sit/stands in </=30seconds with good eccentric control and no LOB to improve functional strength. -MET Rn Bone Marrow Transplant Goals Time Frame for Chcf Goals : 6 weeks Rn Bone Marrow Transplant Goal 1: Patient to be independent and compliant with HEP.--met Rn Bone Marrow Transplant Goal 2: Patient to have improved L LE strength >/=4-/5 and R LE >/=4/5 grossly for improved ease with transfers and ambulation. Chcf Goal 3: Patient to be able to stand/walk >/=5 mins with LRAD and no LOB or fatigue with SpO2 >/=90% for improved functional endurance.-progressing Ch[facility] Goal 4: Patient to have improved Tinetti balance score >/=19/28 to decrease fall risk. Minutes Tracking: Time In: 1245 Time Out: 1327 Minutes: 42 Yumiko Montes, [employer] Date: 03/14/2022 documented in [facility] [employer] Work Phone: [phone]) 718-858310-13-2022 History of Present illness Narrative* Rashel Cárdenas, PT - 03/06/2022 12:30 PM EDT [facility] Outpatient Physical Therapy Daily Note Patient: Piotr Kerr : 1960 CSN #: [id number] Referring Physician: Jorge Pritchett DO Date: 03/06/2022 Diagnosis: Weakness of both LE's, R29.898 Treatment Diagnosis: Difficulty walking PT Insurance Information: [employer] [place] Total # of Visits Approved: 36 Per Physician Order Total # of Visits to Date: 26 No Show: 0 Canceled Appointment: 0 Pre-Treatment Pain: 0/10 Subjective: Patient reports some congestion and abdominal pain today; thinks it may be related to amedication he's taking. Exercises: Exercise 2: SciFit bike 10 mins 4.0 (hills) Exercise 3: island walks 5 laps GTB Exercise 6: sit<>stands 10x3 (black chair) Exercise 7: SC amb 350' then recip stairs x7 Exercise 8: ignacio taps at counter (small) 10x ea Exercise 12: Box cone drill x3 Assessment Assessment: Patient able to ascend/descend 28 steps with B HR and reciprocal pattern before fatiguetoday. Endurance continues to slowly progress. Will continue. Activity Tolerance Activity Tolerance: Patient tolerated treatment well, Patient limited by endurance Patient Education Exercise technique Pt verbalized/demonstrated good understanding: [x] Yes [] No, pt required further clarification. Post Treatment Pain: 0/10 Plan Plan Frequency: 2 Plan weeks: 6 Goals (Total # of Visits to Date: 26) Short Term Goals Time Frame for Short Term Goals: 3 weeks Short Term Goal 1: Patient to initiate HEP for improved B LE strength and endurance.-met/cont Short Term Goal 2: Patient to tolerate 45 min of ther ex/act with minimal rest breaks to improve endurance.-met Short Term Goal 3: Patient to be able to complete 5 sit/stands in </=30seconds with good eccentric control and no LOB to improve functional strength. -MET Rn Bone Marrow Transplant Goals Time Frame for Chcf Goals : 6 weeks [facility] Goal 1: Patient to be independent and compliant with HEP.--met Rn Bone Marrow Transplant Goal 2: Patient to have improved L LE strength >/=4-/5 and R LE >/=4/5 grossly for improved ease with transfers and ambulation. Chcf Goal 3: Patient to be able to stand/walk >/=5 mins with LRAD and no LOB or fatigue with SpO2 >/=90% for improved functional endurance.-progressing Ch[facility] Goal 4: Patient to have improved Tinetti balance score >/=19/28 to decrease fall risk. Minutes Tracking: Time In: 1228 Time Out: 1321 Minutes: 53 Timed Code Treatment Minutes: 50 Minutes Rashel Cárdenas PT, DPT Date: 03/06/2022 documented in this encounterBON [employer] [facility] [employer] Work Phone: [phone] History of Present illness Narrative* Yumiko Montes, [employer] - 03/04/2022 12:00 PM EDT [facility] Outpatient Physical Therapy Daily Note Patient: Piotr Kerr : 1960 CSN #: [id number] Referring Physician: Jorge Pritchett DO Date: 03/04/2022 Treatment Diagnosis: Difficulty walking PT Insurance Information: [employer] [place] Total # of Visits Approved: 36 Per Physician Order Total # of Visits to Date: 25 Canceled Appointment: 0 Pre-Treatment Pain: 0/10 Subjective: Pt. denies pain in B LEs upon arrival but does state having GI issues today. Exercises: Exercise 2: SciFit bike 10 mins 3.5 (hills) Exercise 3: island walks 5 laps GTB Exercise 6: sit<>stands 10x3 (black chair) Exercise 7: SC amb 300' then recip stairs x5 Exercise 8: ignacio taps at counter (small) 10x ea Manual: Modalities: Assessment Body Structures, Functions, Activity Limitations Requiring Skilled Therapeutic Intervention: Decreased functional mobility Assessment: Pt. decreased endurance and increased fatigue noted this date, pt. continues to have GIissues this date. Noted RB requried this date. Will cotninue to progress per pt. tolerance. Activity Tolerance Activity Tolerance: Patient limited by endurance, Patient limited by fatigue Patient Education Patient Education: HEP Pt verbalized/demonstrated good understanding: [x] Yes [] No, pt required further clarification. Post Treatment Pain: 0/10 Plan Plan Frequency: 2 Plan weeks: 6 Goals (Total # of Visits to Date: 25) Short Term Goals Time Frame for Short Term Goals: 3 weeks Short Term Goal 1: Patient to initiate HEP for improved B LE strength and endurance.-met/cont Short Term Goal 2: Patient to tolerate 45 min of ther ex/act with minimal rest breaks to improve endurance.-met Short Term Goal 3: Patient to be able to complete 5 sit/stands in </=30seconds with good eccentric control and no LOB to improve functional strength. -MET [facility] Goals Time Frame for [facility] Goals : 6 weeks [facility] Goal 1: Patient to be independent and compliant with HEP.--met Rn Bone Marrow Transplant Goal 2: Patient to have improved L LE strength >/=4-/5 and R LE >/=4/5 grossly for improved ease with transfers and ambulation. [facility] Goal 3: Patient to be able to stand/walk >/=5 mins with LRAD and no LOB or fatigue with SpO2 >/=90% for improved functional endurance.-progressing Rn Bone Marrow Transplant Goal 4: Patient to have improved Tinetti balance score >/=19/28 to decrease fall risk. Minutes Tracking: Time In: 1202 Time Out: 1245 Minutes: 43 Yumiko Montes PTA Date: 03/04/2022 [facility] [employer] Phone: 1(334) [phone] History of Present illness Narrative* Yumiko Montes PTA - 02/07/2022 2:15 PM EDT [facility] Outpatient Physical Therapy Daily Note Patient: Piotr Kerr : 1960 CSN #: [id number] Referring Physician: Jorge Pritchett DO Date: 02/07/2022 Treatment Diagnosis: Difficulty walking PT Insurance Information: [employer] [place] Total # of Visits Approved: 24 Per Physician Order Total # of Visits to Date: 20 No Show: 0 Canceled Appointment: 0 Pre-Treatment Pain: 0/10 Exercises: Exercise 1: HEP: sink exercises x10 with chair close by Exercise 2: SciFit bike 10 mins 3.5 (hills) Exercise 3: island walks 5 laps GTB Exercise 5: step taps 6 inch 15x Exercise 6: sit<>stands 10x2 (black chair) Exercise 7: SC amb 175' then recip stairs x10 2 big loops today Exercise 8: ignacio taps at counter (small) 10x ea Exercise 9: hip abd GTB 15x Exercise 10: ignacio step overs (small) 4 pl Exercise 11: UBE x5 standing Manual: Modalities: Assessment Assessment: Pt. able to stand and perform UBE for 5' but reports some back pain at end of activity.Will continue to progress pt. per tolerance. Activity Tolerance Activity Tolerance: Patient tolerated treatment well, Patient limited by fatigue Patient Education Patient Education: HEP Pt verbalized/demonstrated good understanding: [x] Yes [] No, pt required further clarification. Post Treatment Pain: 06/03 Plan Goals (Total # of Visits to Date: 20) Short Term Goals Time Frame for Short term goals: 3 weeks Short term goal 1: Patient to initiate HEP for improved B LE strength and endurance.-met/cont Short term goal 2: Patient to tolerate 45 min of ther ex/act with minimal rest breaks to improve endurance.-met Short term goal 3: Patient to be able to complete 5 sit/stands in </=30seconds with good eccentric control and no LOB to improve functional strength. 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 [facility] goal 3: Patient to be able to stand/walk >/=5 mins with LRAD and no LOB or fatigue with SpO2 >/=90% for improved functional endurance.-progressing [facility] goal 4: Patient to have improved Tinetti balance score >/=19/28 to decrease fall risk. Minutes Tracking: Time In: 1415 Time Out: 1501 Minutes: 46 Yumiko Montes, COOKING [employer]F Date: 02/07/2022 documented in this encounterBON [employer] Phone: [phone]) 777-561509-06-2022 History of Present illness Narrative* Rashel Cárdenas, PT - 01/28/2022 2:15 PM EDT [facility] Outpatient Physical Therapy Daily Note Patient: Piotr Kerr : 1960 CSN #: [id number] Referring Physician: Jorge Pritchett DO Date: 01/28/2022 Diagnosis: Weakness of both LE's, R29.898 Treatment Diagnosis: Difficulty walking PT Insurance Information: [employer] [place] Total # of Visits Approved: 24 Per Physician Order Total # of Visits to Date: 17 No Show: 0 Canceled Appointment: 0 Pre-Treatment Pain: 07/04 Subjective: Patient reports feeling well today. Exercises: Exercise 2: SciFit bike 10 mins 3.5 (hills) Exercise 3: island walks 5 laps GTB Exercise 5: step taps 6 inch 15x Exercise 6: sit<>stands 10x2 (black chair) Exercise 7: SC amb 175' then recip stairs x10 Exercise 9: hip abd GTB 15x Exercise 11: UBE x6 min seated Assessment Assessment: Patient's endurance continues to progress. Pt able to ascend/descend stairs reciprocally 10x today before seated rest break, doubling what he did last visit. Also increased laps with lateral ambulation. Will continue. Activity Tolerance Activity Tolerance: Patient tolerated treatment well, Patient limited by fatigue Patient Education Exercise technique Pt verbalized/demonstrated good understanding: [x] Yes [] No, pt required further clarification. Post Treatment Pain: 07/04 Plan Plan Frequency: 3 Plan weeks: 4 Goals (Total # of Visits to Date: 17) Short Term Goals Time Frame for Short term goals: 3 weeks Short term goal 1: Patient to initiate HEP for improved B LE strength and endurance.-met/cont Short term goal 2: Patient to tolerate 45 min of ther ex/act with minimal rest breaks to improve endurance.-met Short term goal 3: Patient to be able to complete 5 sit/stands in </=30seconds with good eccentric control and no LOB to improve functional strength. 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 vermin exterminator goal 3: Patient to be able to stand/walk >/=5 mins with LRAD and no LOB or fatigue with SpO2 >/=90% for improved functional endurance.-progressing vermin exterminator goal 4: Patient to have improved Tinetti balance score >/=19/28 to decrease fall risk. Minutes Tracking: Time In: 1414 Time Out: 1500 Minutes: 46 Timed Code Treatment Minutes: 45 Minutes Rashel Cárdenas PT, DPT Date: 01/28/2022 documented [facility] [employer] Phone: 1(988) 356-957509-02-2022 History of Present illness Narrative* Rashel Cárdenas PT - 01/24/2022 11:45 AM EDT [facility] Physical Therapy Daily Note Patient: Piotr Kerr : 1960 CSN #: [id number] Referring Physician: Jorge Pritchett DO Date: 01/24/2022 Diagnosis: Weakness of both LE's, R29.898 Treatment Diagnosis: Difficulty walking PT Insurance Information: [employer] [place] Total # of Visits Approved: 24 Per Physician Order Total # of Visits to Date: 16 No Show: 0 Canceled Appointment: 0 Pre-Treatment Pain: 3/10 Subjective: Patient reports some L arm pain today but nothing abnormal. Exercises: Exercise 1: HEP: sink exercises x10 with chair close by Exercise 2: SciFit bike 10 mins 3.5 (hills) Exercise 3: island walks 3 laps GTB Exercise 5: step taps 6 inch 15x Exercise 6: sit<>stands 10x2 (black chair) Exercise 7: SC amb 175' then recip stairs x5 Exercise 11: UBE x6 min seated Assessment Assessment: Added UBE to improve endurance today. Patient able to ascend/descend stairs reciprocally 5x today before seated rest break. Will continue. Activity Tolerance Activity Tolerance: Patient tolerated treatment well, Patient limited by fatigue Patient Education Exercise technique and rationale Pt verbalized/demonstrated good understanding: [x] Yes [] No, pt required further clarification. Post Treatment Pain: 3/10 Plan Plan Frequency: 3 Plan weeks: 4 Goals (Total # of Visits to Date: 16) Short Term Goals Time Frame for Short term goals: 3 weeks Short term goal 1: Patient to initiate HEP for improved B LE strength and endurance.-met/cont Short term goal 2: Patient to tolerate 45 min of ther ex/act with minimal rest breaks to improve endurance.-met Short term goal 3: Patient to be able to complete 5 sit/stands in </=30seconds with good eccentric control and no LOB to improve functional strength. 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 [facility] goal 3: Patient to be able to stand/walk >/=5 mins with LRAD and no LOB or fatigue with SpO2 >/=90% for improved functional endurance.-progressing vermin exterminator goal 4: Patient to have improved Tinetti balance score >/=19/28 to decrease fall risk. Minutes Tracking: Time In: 1146 Time Out: 1234 Minutes: 48 Timed Code Treatment Minutes: 47 Minutes Rashel Cárdenas PT, DPT Date: 01/24/2022 documented in [facility] [employer] Phone: 1(573) 415-885108-25-2022 History of Present illness Narrative* Rashel Cárdenas PT - 01/16/2022 2:30 PM EDT [facility] Physical Therapy Daily Note Patient: Piotr Kerr : 1960 CSN #: [id number] Referring Physician: Jorge Pritchett DO Date: 01/16/2022 Diagnosis: Weakness of both LE's, R29.898 Treatment Diagnosis: Difficulty walking PT Insurance Information: [employer] [place] Total # of Visits Approved: 24 Per Physician Order Total # of Visits to Date: 13 No Show: 0 Canceled Appointment: 0 Pre-Treatment Pain: 0/10 Subjective: Patient reports feeling pretty good today. Exercises: Exercise 2: SciFit bike 10 mins 3.5 (hills) Exercise 4: sink ex 10x Exercise 5: step taps 6 inch 15x Exercise 6: sit<>stands 10x2 (black chair) Exercise 7: SC amb 175' then recip stairs x4 Exercise 8: ignacio taps at counter (small) 10x ea Assessment Assessment: Pt has attended 13 PT visits for difficulty walking and met goals for independence withHEP and improved functional strength with sit/stands and for improved exercise tolerance. Patient able to tolerate 2 minutes of standing and walking before seated rest break required, progressing toward LTG. Patient to benefit from continued physical therapy 2x/wk for 6 more weeks to meet remaininggoals and return toward PLOF. Activity Tolerance Activity Tolerance: Patient tolerated treatment well Patient Education Exercise technique; progression toward goals Pt verbalized/demonstrated good understanding: [x] Yes [] No, pt required further clarification. Post Treatment Pain: 0/10 Plan Plan Frequency: 3 Plan weeks: 4 Goals (Total # of Visits to Date: 13) Short Term Goals Time Frame for Short term goals: 3 weeks Short term goal 1: Patient to initiate HEP for improved B LE strength and endurance.-met/cont Short term goal 2: Patient to tolerate 45 min of ther ex/act with minimal rest breaks to improve endurance.-met Short term goal 3: Patient to be able to complete 5 sit/stands in </=30seconds with good eccentric control and no LOB to improve functional strength. -MET [facility] Goals Time Frame for vermin exterminator goals : 6 weeks [facility] goal 1: Patient to be independent and compliant with HEP.--met [facility] goal 2: Patient to have improved L LE strength >/=4-/5 and R LE >/=4/5 grossly for improved ease with transfers and ambulation. [facility] goal 3: Patient to be able to stand/walk >/=5 mins with LRAD and no LOB or fatigue with SpO2 >/=90% for improved functional endurance.-progressing [facility] goal 4: Patient to have improved Tinetti balance score >/=19/28 to decrease fall risk. Minutes Tracking: Time In: 1430 Time Out: 1512 Minutes: 42 Timed Code Treatment Minutes: 41 Minutes Rashel Cárdenas, PT, DPT Date: 01/16/2022 documented in this encounterBON [facility] [employer] Phone: 1(266) 948-384908-17-2022 History of Present illness Narrative* Doc Agrawal, COOKING CHEF - 01/08/2022 1:45 PM EDT [facility] Out[facility] Physical Therapy Daily Note Patient: Piotr Kerr : 1960 CSN #: [id number] Referring Physician: Jorge Pritchett DO Date: 01/08/2022 Treatment Diagnosis: Difficulty walking Total # of Visits Approved: 12 Per Physician Order Total # of Visits to Date: 11 No Show: 0 Canceled Appointment: 0 Pre-Treatment Pain: 0/10 Subjective: Pt reports he has noticed he woke up in the morning feeling not so good and thinks its related to his flomax pill. Pt states he didnt take that one and felt better and cut his BP med inhalf d/t it running low . Pt denies current pain, just sore knees. Exercises: Exercise 1: HEP: sink exercises x10 with chair close by Exercise 2: SciFit bike 9 mins 3.5 (hills) Exercise 3: island walks 3 laps GTB Exercise 5: step taps 6 inch 15x Exercise 6: sit<>stands 10x2 (black chair) Exercise 7: SC amb 75', 175' Exercise 9: hip abd GTB 15x Assessment Assessment: Pt req slightly increased rest breaks today d/t fatigue. Pt blood pressure 121/68 today, SPO2 98% and HR 62 BPM during working out. Pt advised to speak with PCP prior to making medicationchanges to avoid ill health affects. Activity Tolerance Activity Tolerance: Patient tolerated treatment well Patient Education Patient Education: HEP Pt verbalized/demonstrated good understanding: [x] Yes [] No, pt required further clarification. Post Treatment Pain: 0/10 Plan Plan Frequency: 3 Plan weeks: 4 Goals (Total # of Visits to Date: 11) Short Term Goals Time Frame for Short term goals: 3 weeks Short term goal 1: Patient to initiate HEP for improved B LE strength and endurance.-met/cont Short term goal 2: Patient to tolerate 45 min of ther ex/act with minimal rest breaks to improve endurance.-progressing Short term goal 3: Patient to be able to complete 5 sit/stands in </=30seconds with good eccentric control and no LOB to improve functional strength. -MET Rn Bone Marrow Transplant Goals Time Frame for vermin exterminator goals : 6 weeks vermin exterminator goal 1: Patient to be independent and compliant with HEP. [facility] goal 2: Patient to have improved L LE strength >/=4-/5 and R LE >/=4/5 grossly for improved ease with transfers and ambulation. vermin exterminator goal 3: Patient to be able to stand/walk >/=5 mins with LRAD and no LOB or fatigue with SpO2 >/=90% for improved functional endurance. F[facility] goal 4: Patient to have improved Tinetti balance score >/=19/28 to decrease fall risk. Minutes Tracking: Time In: 1346 Time Out: 1430 Minutes: 44 Timed Code Treatment Minutes: 43 Minutes Doc Agrawal PTA Date: 01/08/2022 documented in [facility] encounterB[facility] [employer] Phone: 1(777) [phone] History of Present illness Narrative* Doc Agrawal PTA - 01/03/2022 2:45 PM EDT [facility] Physical Therapy Daily Note Patient: Piotr Kerr : 1960 CSN #: [id number] Referring Physician: Jorge Pritchett DO Date: 01/03/2022 Treatment Diagnosis: Difficulty walking Total # of Visits Approved: 12 Per Physician Order Total # of Visits to Date: 9 No Show: 0 Canceled Appointment: 0 Pre-Treatment Pain: 0/10 Subjective: Pt states he is just a little tired today but other than that. Pt denies current pain at rest. Exercises: Exercise 1: HEP: sink exercises x10 with chair close by Exercise 2: SciFit bike 9 mins 3.5 (hills) Exercise 3: island walks 3 laps GTB Exercise 5: step taps 6 inch 15x Exercise 6: sit<>stands 10x2 (black chair) Exercise 7: SC amb 75', 175' Assessment Assessment: Pt complete 8 sit<>stands in 30 sec today with no UE assist. Pt displayed decreased tolerance to exercise today. Activity Tolerance Activity Tolerance: Patient tolerated treatment well Patient Education Patient Education: HEP Pt verbalized/demonstrated good understanding: [x] Yes [] No, pt required further clarification. Post Treatment Pain: 0/10 Plan Plan Frequency: 3 Plan weeks: 4 Goals (Total # of Visits to Date: 9) Short Term Goals Time Frame for Short term goals: 3 weeks Short term goal 1: Patient to initiate HEP for improved B LE strength and endurance.-met/cont Short term goal 2: Patient to tolerate 45 min of ther ex/act with minimal rest breaks to improve endurance.-progressing Short term goal 3: Patient to be able to complete 5 sit/stands in </=30seconds with good eccentric control and no LOB to improve functional strength. -MET Rn Bone Marrow Transplant Goals Time Frame for FPC goals : 6 weeks vermin exterminator goal 1: Patient to be independent and compliant with HEP. vermin exterminator goal 2: Patient to have improved L LE strength >/=4-/5 and R LE >/=4/5 grossly for improved ease with transfers and ambulation. [facility] goal 3: Patient to be able to stand/walk >/=5 mins with LRAD and no LOB or fatigue with SpO2 >/=90% for improved functional endurance. [facility] goal 4: Patient to have improved Tinetti balance score >/=19/28 to decrease fall risk. Minutes Tracking: Time In: 1446 Time Out: 1540 Minutes: 54 Timed Code Treatment Minutes: 49 Minutes Doc Agrawal COOKING CHEF Date: 01/03/2022 documented in this encounterB[facility] Work Phone: [phone]) [phone] History of Present illness Narrative* Doc Agrawal PTA - 01/01/2022 4:15 PM EDT [facility] Physical Therapy Daily Note Patient: Piotr Kerr : 1960 [facility] #: [id number] Referring Physician: Jorge Pritchett DO Date: 01/01/2022 Treatment Diagnosis: Difficulty walking Total # of Visits Approved: 12 Per Physician Order Total # of Visits to Date: 8 No Show: 0 Canceled Appointment: 0 Pre-Treatment Pain: 0/10 Subjective: Pt reports he feels like he is able to push a little more and do a little more at home but still gets tired. Pt states he has a little L abdomen pressure but hes had that for a little bit. Exercises: Exercise 1: HEP: sink exercises x10 with chair close by Exercise 2: SciFit bike 9 mins 3.5 (hills) Exercise 3: island walks 3 laps GTB Exercise 5: step taps 6 inch 15x Exercise 6: sit<>stands 10x2 (black chair) Exercise 7: SC amb 75', 175' Exercise 8: ignacio taps at counter (small) 10x ea Exercise 9: hip abd GTB 15x Exercise 10: ignacio step overs (flat) 4 pl Assessment Assessment: Added ignacio step overs today with step to gait pattern and min LOB noted during exercise. Endurance remains limited but slowly progressing. Activity Tolerance Activity Tolerance: Patient tolerated treatment well Patient Education Patient Education: HEP Pt verbalized/demonstrated good understanding: [x] Yes [] No, pt required further clarification. Post Treatment Pain: 0/10 Plan Plan Frequency: 3 Plan weeks: 4 Goals (Total # of Visits to Date: 8) Short Term Goals Time Frame for Short term goals: 3 weeks Short term goal 1: Patient to initiate HEP for improved B LE strength and endurance.-met/cont Short term goal 2: Patient to tolerate 45 min of ther ex/act with minimal rest breaks to improve endurance.-progressing Short term goal 3: Patient to be able to complete 5 sit/stands in </=30seconds with good eccentric control and no LOB to improve functional strength. 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 [facility] goal 2: Patient to have improved L LE strength >/=4-/5 and R LE >/=4/5 grossly for improved ease with transfers and ambulation. F[facility] goal 3: Patient to be able to stand/walk >/=5 mins with LRAD and no LOB or fatigue with SpO2 >/=90% for improved functional endurance. [facility] goal 4: Patient to have improved Tinetti balance score >/=19/28 to decrease fall risk. Minutes Tracking: Time In: 1616 Time Out: 1703 Minutes: 47 Timed Code Treatment Minutes: 45 Minutes Doc AgrawalALEXANDRA Date: 01/01/2022 documented in this encounterB[facility] Work Phone: [phone]) [phone] History of Present illness Narrative* Rashel Cárdenas, PT - 12/27/2021 2:00 PM EDT [facility] Physical Therapy Daily Note Patient: Piotr Kerr : 1960 CSN #: [id number] Referring Physician: Jorge Pritchett DO Date: 12/27/2021 Diagnosis: Weakness of both LE's, R29.898 Treatment Diagnosis: Difficulty walking PT Insurance Information: [employer] [place] Total # of Visits Approved: 12 Per Physician Order Total # of Visits to Date: 6 No Show: 0 Canceled Appointment: 0 Pre-Treatment Pain: 07/04 Subjective: Patient reports he slept better last night d/t having the CPAP on all night. Exercises: Exercise 2: SciFit bike 9 mins 3.5 (hills) Exercise 3: island walks 3 laps GTB Exercise 6: sit<>stands 10x2 (black chair) Exercise 7: SC amb 75', 175' Exercise 8: side steps at counter 3 laps GTB Exercise 9: hip abd GTB 15x Assessment Assessment: Patient amb 175ft today prior to seated rest break but with severe fatigue following requiring prolonged seated rest break. Will continue to progress as tolerated. Activity Tolerance Activity Tolerance: Patient tolerated treatment well Patient Education Exercise technique Pt verbalized/demonstrated good understanding: [x] Yes [] No, pt required further clarification. Post Treatment Pain: 06/03 Plan Plan Frequency: 3 Plan weeks: 4 Goals (Total # of Visits to Date: 6) Short Term Goals Time Frame for Short term goals: 3 weeks Short term goal 1: Patient to initiate HEP for improved B LE strength and endurance.-met/cont Short term goal 2: Patient to tolerate 45 min of ther ex/act with minimal rest breaks to improve endurance.-progressing Short term goal 3: Patient to be able to complete 5 sit/stands in </=30seconds with good eccentric control and no LOB to improve functional strength. 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 [facility] goal 2: Patient to have improved L LE strength >/=4-/5 and R LE >/=4/5 grossly for improved ease with transfers and ambulation. vermin exterminator goal 3: Patient to be able to stand/walk >/=5 mins with LRAD and no LOB or fatigue with SpO2 >/=90% for improved functional endurance. vermin exterminator goal 4: Patient to have improved Tinetti balance score >/=19/28 to decrease fall risk. Minutes Tracking: Time In: 1355 Time Out: 1444 Minutes: 49 Timed Code Treatment Minutes: 47 Minutes Rashel Cárdenas PT, DPT Date: 12/27/2021 documented in [facility] encounterB[facility] [employer] Work Phone: [phone]) [phone] History of Present illness Narrative* Rashel Cárdenas PT - 12/17/2021 10:00 AM EDT [facility] Therapy Evaluation Date: 12/17/2021 Patient: Piotr Kerr : 1960 CSN #: [id number] Referring Physician: Jorge Pritchett DO Medical Diagnosis: Weakness of both LE's, R29.898 Treatment Diagnosis: Difficulty walking PT Insurance Information: [employer] [place] Total # of Visits to Date: 1 No Show: 0 Canceled Appointment: 0 Subjective Subjective: Patient reports he's plateaued with cardiac rehab according to them but he's feeling defeated overall. Gets out of breath easily. Pain in L kidney area since he is in kidney failure stage3. No chest pain reported. Patient uses a SPC for ambulation and a 4WW at home. He's had some LOB'sbut no falls recently. Has difficulty with stair negotiation even with B HR's. Additional Pertinent Hx: DM, hx of CVA 2019, hx of Covid 05/2021, CKD, CAD, PAD of L LE, multiple stents in place, HTN Observations: General Observations Description: Patient amb with SPC and slight L lateral lean with decreased L foot clearance. 5x sit/stand: 46sec with B armrests, tends to plop in chair; TU seconds with SPC and SBA with moderate SOB. SpO2 at rest: 96%, HR 60bpm; with activity: SpO2: 98%, HR: 66bpm. Objective Strength Strength LLE L Hip Flexion: 3/5 L Hip ABduction: 3+/5 L Hip ADduction: 3+/5 L Knee Flexion: 3+/5 L Knee Extension: 3+/5 Special Tests: Strength RLE R Hip Flexion: 4-/5 R Hip ABduction: 4-/5 R Hip ADduction: 4-/5 R Knee Flexion: 4-/5 R Knee Extension: 4-/5 Strength LLE L Hip Flexion: 3/5 L Hip ABduction: 3+/5 L Hip ADduction: 3+/5 L Knee Flexion: 3+/5 L Knee Extension: 3+/5 Exercises: Exercise 1: HEP: sink exercises x10 with chair close by Functional Outcome Measures Sitting Balance: Steady, safe Arises: Able, uses arms to help Attempts to Arise: Able to arise, one attempt Immediate Standing Balance (First 5 Seconds): Unsteady (swaggers, moves feet, trunk sway) Standing Balance: Steady but wide stance, uses cane or other support Nudged: Staggers, grabs, catches self Eyes Closed: Unsteady Turned 360 Degrees: Steadiness: Steady Turned 360 Degrees: Continuity of Steps: Continuous Sitting Down: Unsafe (misjudges distance, falls into chair) Initiation of Gait: No hesitancy Step Height: R Swing Foot: Right foot complete clears floor Step Length: R Swing Foot: Passes left stance foot Step Height: L Swing Foot: Left foot does not clear floor completely with step Step Length: L Swing Foot: Does not pass right stance foot with step Step Symmetry: Right and left step length not equal (estimate) Step Continuity: Steps appear continuous Path: Mild/moderate deviation or uses walking aid Trunk: Marked sway or uses walking aid Walking Time: Heels apart Gait Score: 5 Tinetti Total Score: 13 Assessment Assessment: Patient is 61 year old male with dx of general weakness of B LE's who presents with increased fatigue/SOB with even 60seconds worth of activity.Patient amb with SPC and slight L lateral lean with decreased L foot clearance. 5x sit/stand: 46sec with B armrests, tends to plop in chair; TU seconds with SPC and SBA with moderate SOB. SpO2 at rest: 96%, HR 60bpm; with activity: SpO2: 98%, HR: 66bpm. Patient with decreased L LE strength: 3/5 grossly and decreased R LE strength 4-/5grossly. Patient to benefit from physical therapy to improve B LE strength and endurance and improve tolerance to transfers and gait and decrease fall risk to return towards PLOF. Therapy Prognosis: Good Decision Making: Low Complexity Patient Education PT eval, POC, HEP Pt verbalized/demonstrated good understanding: [X] Yes [] No, pt required further clarification. Goals Short Term Goals Time Frame for Short term goals: 3 weeks Short term goal 1: Patient to initiate HEP for improved B LE strength and endurance. Short term goal 2: Patient to tolerate 45 min of ther ex/act with minimal rest breaks to improve endurance. Short term goal 3: Patient to be able to complete 5 sit/stands in </=30seconds with good eccentric control and no LOB to improve functional strength. Rn Bone Marrow Transplant Goals Time Frame for FPC goals : 6 weeks FPC goal 1: Patient to be independent and compliant with HEP. vermin exterminator goal 2: Patient to have improved L LE strength >/=4-/5 and R LE >/=4/5 grossly for improved ease with transfers and ambulation. vermin exterminator goal 3: Patient to be able to stand/walk >/=5 mins with LRAD and no LOB or fatigue with SpO2 >/=90% for improved functional endurance. vermin exterminator goal 4: Patient to have improved Tinetti balance score >/=19/28 to decrease fall risk. Minutes Tracking: Time In: 1029 Time Out: 1101 Minutes: 32 Timed Code Treatment Minutes: 31 Minutes Rashel Cárdenas PT, DPT 12/17/2021 [facility] [employer] Phone: [phone]) 209-656306-27-2022 History of Present illness Narrative* Josefa Ruvalcaba RD, DEBORAH - 11/18/2021 10:30 AM EDT MEDICAL NUTRITION THERAPY - CARDIOPULMONARY 1:1 VISIT Food diary: Reveals breakfast consumed 1.5 hours after rising. Breakfast is white toast or honey wheat toast, eggs, and unsweetened applesauce or fruit, waffles, or cheerio's or bran flakes. . Lunch is a bologna or turkey sandwich with mustard or leftover. Does not typically eat an evening snack, recommended adding carbohydrate/protein snack. Dinner is soup or pork chops with cauliflower rice andgreen beans. Dx DM. FSBS 140. Client made appointment to visit 1:1 this date, and reports Pt encouraged to eat 3 meals per day atconsistent carbohydrates and consistent times. Recommendations include: Increase whole grains (choose instead of refined wheat products) Increase whole fruit and vegetable use (at least 5 a day combined) Eat, instead of drinking fruit items. Incorporate daily activity (>30 minutes) Read food labels for Total fat 57 < grams daily), Saturated (<11 grams daily) and Trans fats (zero daily) Read food labels for Sodium content (goal is <2000 mg daily) Measure food portions and use MyPlate as guide for meal variety Maintain consistent carbohydrate intakes at meals and snacks (60 grams at meals and 15 grams for a night snack) Consume consistent amounts of total carbohydrate with meals and snacks Provided literature on Heart Healthy Eating Destination Heart Health, food label guide, [facility] [employer] Phone: 1([phone]) 567-560705-23-2022 History of Present illness Narrative* Tamiko Rey - 10/14/2021 11:00 AM EDT Cardiopulmonary Rehab Medical Nutrition Therapy Food Diary Evaluation Patient Name: Piotr Kerr Registered Dietitian: Tamiko Le, Clinic Physician Director Date: 10/14/2021 Dear Piotr, Thank you for sharing your information about your eating patterns, it serves not only to help me see what you are eating, but you as well. Eating 3 meals a day is great way to start, I am pleased to see that you are doing that. Whole grains, fruits and vegetables, along with lean meats and low fat dairy are the cornerstones of your health. Your diary seems to include a lot of carbohydrates from bread, make sure that at least half, if not all are whole grain options. Your food diary also didn't include any vegetable intakes. With that in mind, look below for some suggestions. Your Rate Your Plate (RYP) Score was: 54, which means: There are some ways you can make your eatinghabits healthier. Recommendations from the Dietitian based on your RYP and Food Diary / activity record to improve health and decrease risk factors 1. Include whole grains in your everyday diet. This can be anything like oatmeal, brown rice, Wholewheat tortilla, bread, pasta or crackers. 2. Limit added sugar intakes. This can come from things like your strudel, arabic toast sticks, andPower aid. Men only need 37.5g or less per day. 3. Increase your fruit and vegetable intake to 5 servings per day. 1 serving can be a medium sized apple, orange or peach, 1 cup of leafy greens or 1/2 cup of cooked broccoli or cauliflower, green beans or carrots, or 1/2 cup of applesauce. 4. Choose lower fat options like low fat or fat free milk, cheese or yogurt. 5. Include at least 150 minutes of physical activity per week, which is around 21 minutes per day. 6. Try including at least 64 oz of water per day. 7. Choose lean meats like skinless chicken, turkey, lean beef or pork. If there are many things to change, try making change with one recommendation, then move on from there. Recommendations are based on guidelines from the [place] [employer], [place] [employer] and current literature. Feel free to call with questions or concerns [phone] or [phone] Tamiko Le Clinic Physician Director documented in this encounter[facility] [employer] Phone: [phone]) 210-483405-06-2022 History of Present illness Narrative* Sally Armijo RN - 09/27/2021 11:00 AM EDT Phase II Cardiac Rehab Individualized Treatment Plan-Initial Patient Name: Piotr Kerr Date of Initial Assessment: 09/27/2021 Diagnosis: PTCA w/SYLVIA Onset Date: 06/03/2021 and 09/09/2021 Referring Physician: Dr. Kan Session Number: 1 Risk Stratification (of untoward event during exercise): [] HIGH RISK LVEF < 40% Survivor of cardiac arrest or sudden cardiac Complex ventricular arrythmias (VT >6 beats, multifocal PVCs at rest or with exercise) Presence of angina or other significant symptoms (shortness of breath, light- headedness, or dizziness at <5 METs or during recovery PA or cardiac surgery complicated by cardiogenic shock, CHF, and/or s/s of post- procedure ischemia Abnormal hemodynamics with exercise, especially flat or decreasing systolic BP or chronotropic incompetence with ^ workload Significant silent ischemia (ST depression >/= 2mm without symptoms with exercise or in recovery Signs/symptoms including angina, dizziness, light-headedness or dyspnea with low exercise levels nino recovery Clinically significant depression Physically Inactive <= 5 METs Implantable cardioverter defibrillator (ICD) At least 4 of below: Lipids LDL >130 / Cholesterol > 200 BP >160/100 BMI >30 Smoker who continues to smoke DM HgbA1C >=7 [x] MODERATE RISK LVEF 40-49% Mild to moderate level of silent ischemia during exercise testing or recovery (ST depression <2mm from baseline) Presence of stable angina or other significant symptoms (unusual shortness of breath, light-headedness, or dizziness occurring only at high level of exertion [>=7 METs]) Functional capacity 5.1-8.9 METs At least 2-3 of below: Lipids LDL 100-129 / Cholesterol 150-199 BP systolic 130-159/diastolic 86-99 BMI >30 DM HgbA1C 5.8-7.0 [] LOW RISK Rest LVEF >= 50% No resting or exercise induced complex dysrhythmias Uncomplicate PA, CABG, angioplasty, atherectomy, or stent Normal hemodynamic and EGC response with exercise and in recovery (appropriate increases and decreases in HR and SBP with increasing workloads and recovery Functional capacity >9 METs Absence of angina or other significant symptoms (unusual shortness of breath, light-headedness, or dizziness during exercise and recovery) Absence of complicated ventricular arrhythmias at rest Absence of HF Absence of signs/symptoms of post-event or post-procedure ischemia Absence of clinical depression Non-smoker 0-1 Uncontrolled risk factors EXERCISE Stages of Change: [] pre-contemplation [] Action [] Contemplate [] Maintainence [x] Prep [] Relapse Exercise Prescription: Mode: [x] TM [x] B [x] STP [x] R [x] UBE Frequency: 3 days per week Duration: 31-60 minutes Intensity: 2-4 METs THRR: 60-85% HRR Progression: Based on risk stratification, may increase duration per F.I.T.T. protocol parameters on average 5-10 minutes every 1-2 weeks for the first 4-6 weeks. After 3-4 weeks completed, continue to gradually increase F.I.T.T. parameters gradually at the established duration on average 0.5-1.0 METs per 30 days over the course of the remaining program, as established by patient centered goals and guidelines, maintaining RPE 12-16. [x] Resistance Training Introduce 8-15 bilateral upper extremity resistance exercise at 1-3 sets per lift, on 2-3 non-consecutive days using TheraBand/Free Weights/Weight machine to 8-15 reps on at lease 2 occasions, maintaining RPE 12-16. Once repetition maximum has been achieved, additional weight sets may be added. [] Angina with Exertion Hypertension: [x] Yes [] No Resting BP: 108/62 BP Meds: Kevin Stoddard Intervention: Home Exercise: Type: Walking, cycling, etc Duration: 20-60 minutes Frequency: At least 2 non-rehab days per week [] Resistance Training Progression: Introduce 8-15 bilateral upper extremity and/or lower extremity resistance exercise at 1-3 sets perlift, on 2 non-consecutive days using TheraBand/Weights to 8-15 reps on at lease 2 occasions. Once repetition maximum has been achieved, additional weight sets may be added. Education: [x] Equipment [place] [] Understanding BP [x] S/S to report [] Sodium [x] Warm up/ Cool down [] Exercise Prescription [x] RPE Scale [] Hot/Cold weather guidelines [x] Ex Safety [] Home Exercise [] Proper use weights/bands Target Goal: -Individual Exercise Plan -BP<120/80 or <130/80 if DM -Aerobic active 30 + minutes 5-7 days per week Nutrition Stages of Change: [] pre-contemplation [] Action [] Contemplate [] Maintainence [x] Prep [] Relapse Hyperlipidemia: [x] Yes [] No Lipids: 05/29/2021 Total Cholesterol: 109 Triglycerides: 117 HDL: 19 LDL: 67 Lipid Meds: Pravachol Diabetes: [x] Yes [] No FBS 06/12/2021: 70 HbA1c on 06/06/2021: 6.7 [x] Monitor BS at home Frequency?: 4X daily Diabetes Medication: Humalog and Lantus Weight Management: Height: 74 inches Weight: 231.9 pounds BMI: 31 Wt Goal: < 190 pounds Alcohol: Social History Substance and Sexual Activity Alcohol Use Never Diet Assessment Tool: [x] Food Diary Rate My Plate Score: 54 Special Diet: Diabetic, 2 gram NA+, 30% total fat, <10% saturated fat, 25-35 grams fiber, reduced cholesterol, balanced nutrition Intervention: [] Dietitian Consult [] Nurse/Patient Discussion [] Referred to Diabetes Education Education: [] Heart Healthy Nutrition [] Weight Management [] Portions [] Fat/Cholesterol [] Food Labels [] Food Packaging Claims [] Relate Diabetes/CAD [] S/S hypo/hyperglycemia Target Goal: -LDL-C<100 if triglycerides are > 200 -LDL-C < 70 for high risk patients -HbA1c < 7% -BMI < 25 -Waist Circumference <40 inches men Education Stages of Change: [] pre-contemplation [] Action [] Contemplate [] Maintainence [x] Prep [] Relapse Learning Barriers: [] Speech [] Cognitive [] Literacy [] Vision [x] None [] Readiness to Learn Knowledge test score: 73% Family support: [x] Yes [] No Tobacco use: Social History Tobacco Use Smoking Status Never Smoker Smokeless Tobacco Never Used Intervention: [] Referred to physician for smoking cessation [] Individual education and counseling [] Tobacco adjunct Education: [] Cardiac A and P [] Interventions [] Risk Factors [] Angina [] Medications [] CHF Target Goal: -Complete cessation of tobacco use (if applicable) -Continued risk factor modifications -Recognizing signs/symptoms to report -Proper use of meds Psychosocial Stages of Change: [] pre-contemplation [] Action [] Contemplate [] Maintainence [x] Prep [] Relapse Psychosocial Test: Tool Used: [place] Quality of Life Score: 4 PHQ9 score: Intervention: [] Psych Consult/clinical social work therapist [] Uses stress management skills [] Physician Referral Medications: Education: [] Stress Management [] Depression Target Goal: -Assess presence or absence of depression using a valid screening tool. -Maximize coping skills. -Positive support system. Preventative Medication: [x] Aspirin [x] Beta Blockade [x] Statin or other lipid lowering agent [x] Antiplatelet [x] KIRIT Inhibitor/ARB [] Anticoagulant Medication Compliance (stated): [] 100% [x] 75% [] 50% [] 25% [] 0% Target Goal: -100% medication adherence Fall Risk Assessment: History of falls with or without injury [] Yes [x] No Use of ambulatory aid [x] Yes [] No Difficulty walking/impaired gait [x] Yes [] No Numbness in feet [] Yes [x] No Vision changes [] Yes [x] No Dizziness [] Yes [x] No Shortness of breath [] Yes [] No Medications [x] Anticoagulant/Antiplatelet [x] Betablocker /KIRIT/ARB [] Antidepressant [] Seizure medication [] NA Risk of fall [] Low (none of above) [] Medium (less than 3 above) [x] High (3 or more above) Patient 90-Day Goals: (Specific, Measurable, Achievable, Relevant, and Time-Bound) Be stronger as evidence by walking better within the next 90 days Program Goals: Increase stamina, strength, and flexibility by exercising 31-60 total minutes by engaging in aerobic, resistance, and flexibility workout modalities with the goal of progressively achieving at least 0.5 to 1.0 metabolic equivalant improvement in the next 30 days as evidenced by daily session reports. Achieve and progress prescribed exercise frequency, intensity, time, and type based upon initial evaluation and submaximal graded exercise results as evidenced by the attaining and maintaining the prescribed target heart rate range, a Donald rating of perceived exertion between 11 and 16, duration of>30 60 minutes using multiple exercise modes for at least 3 5 days per week to accumulate a minimum total of 2.5 hours per week of moderate aerobic intensity exercise, as tolerated, evidenced by daily session reports and home workout log. Establish and maintain individualized heart healthy eating plan, and gradually lose 10-15 lb of body weight over the program, utilizing manufacturing project manager recommendations, moderating nutrional intake, and performing regular aerobic and strength training exercises as prescribed, as evidenced by pre- and post- program nutriton survey and routine rounding with patient to ascertain progression toward goal per patient's self report, food diary, and [id number] screening survey. Strive for a lower daily fasting blood glucose measures to <131 and random after meal measures to <181, if diabetic, at home via lifestyle educaton, behavior modification, and medication compliance as tracked per patient's self-report. Introduce and progress 8-10 different bilateral UE and LE progressive resistance exercises focused on major muscle groups using 1-3 sets each per lift, on 2-3 non-consecutive days implementing free and machine weights and/or TheraBands, as appropriate, with a resistance of 40-60% 1-repetition maximum or 10 -15 repetitions to progressive overload and increasing resistance once repetitions have progressed to 15 reps and feel fairly light on 2 prior occasions. Achieve and maintain an optimal average resting blood pressure of <120 / 80 mmHg, or as indicated by this patient's referring provider. Strive for blood lipid optimization with an LDL-C of <100 mg/dL or LDL 70 mg/dL, an HDL-C of > or = 40 mg/dL for men and a triglyceride level of <150 mg/dL via lifestyle education, behavioral modification, and self-reported medication compliance. Develop regular home aerobic exercise program for 20 60 minutes at least 2 non- rehab days per week,excluding 5 10 minutes warm-up and cool-down periods, being tracked on home workout log. Minimize self-reported psycho-social feelings of stress in the next 30 days as evidenced by pre- and post- surveys and by routine rounding with patient to ascertain subjective improvements. Demonstrate knowledge about risk factor reduction, lifestyle modification, and heart health strategies with with an increase of >=5% accuracy via pre- and post-program education assessment screening tool. Complete abstinence from tobacco products over the next 30 days as evidenced by routine rounding with patient. Physician Changes/Comments: * Sally Armijo RN - 09/27/2021 11:00 AM EDT Phase II Cardiac Rehabilitation Physician Order Form Piotrarin Kerr 1960 [id number] 09/27/2021 [x] Phase 2 ECG Monitored Cardiac Rehabilitation [] PA [x] PTCA with stents [] CABG [] Heart Valve Repair/Replaced [] Stable Angina: [] CHF: Onset Date: 06/03/2021 and 09/09/2021 Cardiac Education Goals: (see individualized treatment plan for specific goals, progression & compliance) [x] Hypertension [x] Exercise [x] Cardiac anatomy and physiology [] Smoking [x] Depression [x] Medications [x] Diabetes [x] Obesity [x] Angina [x] Hyperlipidemia [x] Stress [x] Home Exercise Prescribed Exercise Plan: Submaximal exercise evaluation Target HR: 60-85% HRR Initial MET Level: 2-4 METs Duration: 31 - 60 Minutes Frequency: 3 Days per week Limitations: Back discomfort, left shoulder limited ROM, difficulty walking Modalities: [x]Treadmill [x] UBE [x] Seated Stepper [x] Rowing Machine [x] Weights/therabands May increase duration per F.I.T.T. protocol parameters on average 5-10 minutes every 1-2 weeks for the first 4-6 weeks. After 3-4 weeks completed, continue to gradually increase F.I.T.T. parameters gradually at the established duration on average 0.5-1.0 METs per 30 days over the course of the remaining program, as established by patient centered goals and guidelines, maintaining RPE 12-16. Introduce 8-15 bilateral upper /lower extremity resistance exercise at 1-3 sets per lift, on 2-3 non-consecutive days using TheraBand/weights to 8-15 reps on at lease 2 occasions, maintaining RPE 12-16. Once repetition maximum has been achieved, additional weight sets may be added. Standing Orders: Initiate ACLS for cardiac events Nitroglycerine 0.4mg SL every 5 minutes X 3 for angina pain 12 lead EKG for chest pain or dysrhythmia O2 per nasal cannula as needed for SpO2 <90% with symptoms Blood sugar monitoring for hyper/hypoglycemia symptoms Lipid panel pre/post program as needed. 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 Angina [] None [] Tightness [x] Shortness of Breath [] Pressure [] Nausea [] Sharp, Stabbing [] Pallor [] Indigestion, Heartburn [] Sweaty Where was discomfort located? Precipitating Factors? With exertion Relieved by: Rest 2. Arrhythmia [x] None [] Irregular Beats (skips) [] Pacer [] Atrial Fibrillation [] AICD Arrhythmia Medications: NA 3. Congestive Heart Failure [x] None [] Pedal Edema [] Unusual weight gain [] SOB with mild exertion [] Fatigue 4. Vascular [x] Feet constantly cold d/t circulation [] Peripheral claudication [] R [] L PAD History: Claudication History: Location: Pain Scale (1-5): [] Carotid Narrowing [] R [] L 5. Musculoskeletal [] None [x] Back Pain Where? Low back d/t arthritis [x] Joint discomfort Where? Left shoulder limited ROM Nutrition Appetite: [] Too Good [x] Good [] Poor Diet: Reduced calorie, low carb Eating out <1 times/wk Dietary Screening: Rate Your Plate: Daily Food Diary completed: [] Yes [] No Lipids on 05/29/2021: TC 109 HDL 19 LDL 67 Trig 117 Lipid Meds: Pravachol Alcohol: Social History Substance and Sexual Activity Alcohol Use Never Caffeine: [] Yes [x] No Type: Amount: Water intake per day: 60-70 ounces per day Vitamins/Natural herbal products: see med list Psychological [] Depression [] Anxious [] Overwhelmed [x] None Treatment: NA Tobacco Use Social History Tobacco Use Smoking Status Never Smoker Smokeless Tobacco Never Used Diabetes [x] Yes [] No How Lon+ years How do you manage your diabetes: Diet, meds Do you check your blood sugar [x] Yes [] No How often: 4x per day What does your blood sugar usually run? 110-160 Have you seen a manufacturing project manager or special education paraeducator [] Yes [x] No HbA1c on 06/06/2021: 6.7 Diabetes Medication: Insulin Socio-Economic Marital Status: Medication Compliance (stated): [] 100% [x] 75% [] 50% [] 25% [] 0% Stress Source: driving by herself Relaxation techniques/hobbies: TV Level of Education [] 8th Grade [] Associates [] Masters [] High School [] Bachelor [x] Other: Some college Depression Screening: [x] PHQ9 completed - score: 4 Psychosocial Screening: [x] [place] Quality of Life Index scores: 04/02//04/14 Cardiac Rehab Pre - Test [x] Score: 73% Physical Findings Height: 72 inches Weight: 231.9 BMI: 31.59 BP Sittin/62 BP Standing: Deferred Cardiovascular- No edema, apical pulse regular to auscultation, strong bilateral upper and lower extremity pulses 12-Lead EKG on 06/05/2021 Normal sinus rhythm Minimal voltage criteria for LVH, may be normal variant Nonspecific T wave abnormality Abnormal ECG When compared with ECG of 27-MAY-2021 17:27, No significant change was found VR-66 bpm WV-144 ms QRS-80 ms QT/QTc-382/400 ms Cardiac Cath on 06/03/2021: PCI procedure: PTCA / Drug Eluting Stent:, RCA and / or branches - Coronary lesion - more than 50% 09/09/2021: PCI procedure: PTCA / Drug Eluting Stent:, LAD and / or branches, Ejection Fraction per TTE on 05/27/2021: 50-55% Pulmonary- Breath Sounds: Clear throughout SpO2: 98 CHRIS - uses CPAP at night Neurological- CVA 06/2019 on left. Peripheral Vascular- Chronically cold feed. Muscular Skeletal- No deficit noted or reported. Pain Assessment- Location low back/Frequency constant- Pain Level 3/10 on 10 point scale Endocrine- DM. Gastrointestinal- No deficit noted or reported. Genitourinary- Stage III renal failure. Physical limitations- Uses cane Risk Stratification (of untoward event during exercise): [] HIGH RISK LVEF < 40% Survivor of cardiac arrest or sudden cardiac Complex ventricular arrythmias (VT >6 beats, multifocal PVCs at rest or with exercise) Presence of angina or other significant symptoms (shortness of breath, light- headedness, or dizziness at <5 METs or during recovery PA or cardiac surgery complicated by cardiogenic shock, CHF, and/or s/s of post- procedure ischemia Abnormal hemodynamics with exercise, especially flat or decreasing systolic BP or chronotropic incompetence with ^ workload Significant silent ischemia (ST depression >/= 2mm without symptoms with exercise or in recovery Signs/symptoms including angina, dizziness, light-headedness or dyspnea with low exercise levels nino recovery Clinically significant depression Physically Inactive - <= 5 METs Implantable cardioverter defibrillator (ICD) At least 4 of below: Lipids LDL >130 / Cholesterol > 200 BP >160/100 BMI >30 Smoker who continues to smoke DM - HgbA1C >=7 [x] MODERATE RISK LVEF 40-49% Mild to moderate level of silent ischemia during exercise testing or recovery (ST depression <2mm from baseline) Presence of stable angina or other significant symptoms (unusual shortness of breath, light-headedness, or dizziness occurring only at high level of exertion [>=7 METs]) Functional capacity 5.1-8.9 METs At least 2-3 of below: Lipids LDL 100-129 / Cholesterol 150-199 BP - systolic 130-159/diastolic 86-99 BMI >30 DM - HgbA1C 5.8-7.0 [] LOW RISK Rest LVEF >= 50% No resting or exercise induced complex dysrhythmias Uncomplicate PA, CABG, angioplasty, atherectomy, or stent Normal hemodynamic and EGC response with exercise and in recovery (appropriate increases and decreases in HR and SBP with increasing workloads and recovery Functional capacity >9 METs Absence of angina or other significant symptoms (unusual shortness of breath, light-headedness, or dizziness during exercise and recovery) Absence of complicated ventricular arrhythmias at rest Absence of HF Absence of signs/symptoms of post-event or post-procedure ischemia Absence of clinical depression Non-smoker 0-1 Uncontrolled risk factors Fall Risk Assessment: History of falls with or without injury [] Yes [x] No Use of ambulatory aid [x] Yes [] No Difficulty walking/impaired gait [x] Yes [] No Numbness in feet [] Yes [x] No Vision changes [] Yes [x] No Dizziness [] Yes [x] No Shortness of breath [] Yes [x] No Medications [x] Anticoagulant/Antiplatelet [x] Betablocker /KIRIT/ARB [] Antidepressant [] Seizure medication [] NA Risk of fall [] Low (none of above) [] Medium (less than 3 above) [x] High (3 or more above) Patient 90-Day Goals: (Specific, Measurable, Achievable, Relevant, and Time-Bound) Be stronger as evidence by walking better Program Goals: Increase stamina, strength, and flexibility by exercising 31-60 total minutes by engaging in aerobic, resistance, and flexibility workout modalities with the goal of progressively achieving at least 0.5 to 1.0 metabolic equivalant improvement as evidenced by daily session reports and pre/post MET levels. Achieve and progress prescribed exercise frequency, intensity, time, and type based upon initial evaluation and submaximal graded exercise results as evidenced by the attaining and maintaining the prescribed target heart rate range, a Donald rating of perceived exertion between 11 and 16, duration of>30 - 60 minutes using multiple exercise modes for at least 3 - 5 days per week to accumulate a minimum total of 2.5 hours per week of moderate aerobic intensity exercise, as tolerated, evidenced by daily session reports and home workout log. Establish and maintain individualized heart healthy eating plan, and gradually lose 10-15 lb of body weight over the program, utilizing manufacturing project manager recommendations, moderating nutrional intake, and performing regular aerobic and strength training exercises as prescribed, as evidenced by pre- and post- program nutriton survey and routine rounding with patient to ascertain progression toward goal per patient's self report, food diary, and [id number] screening survey. Strive for a lower daily fasting blood glucose measures to <131 and random after meal measures to <181, if diabetic, at home via lifestyle educaton, behavior modification, and medication compliance as tracked per patient's self-report. Introduce and progress 8-10 different bilateral UE and LE progressive resistance exercises focused on major muscle groups using 1-3 sets each per lift, on 2-3 non-consecutive days implementing free and machine weights and/or TheraBands, as appropriate, with a resistance of 40-60% 1-repetition maximum or 10 -15 repetitions to progressive overload and increasing resistance once repetitions have progressed to 15 reps and feel fairly light on 2 prior occasions. Achieve and maintain an optimal average resting blood pressure of <120 / 80 mmHg over the courseof the program by educating patient, monitoring medication compliance, introducing and maintaining regular cardiovascular exercise program. Strive for blood lipid optimization with an LDL-C of <100 mg/dL or LDL 70 mg/dL, an HDL-C of > or = 40 mg/dL for men, and a triglyceride level of <150 mg/dL via lifestyle education, behavioral modification, and medication compliance. Develop regular home aerobic exercise program for 20 - 60 minutes at least 2 non-rehab days per week, excluding 5 - 10 minutes warm-up and cool-down periods, as tracked on home workout log. Minimize self-reported psycho-social feelings of stress in the next 30 days as evidenced by pre- and post- surveys and by routine rounding with patient to ascertain subjective improvements. Demonstrate knowledge about risk factor reduction, lifestyle modification, and heart health strategies with an increase of >=5% accuracy via pre- and post- program education assessment screening tool. Complete abstinence from tobacco products over the program as evidenced by routine rounding with patient. [facility] Phone: [phone]) 491-519801-08-2022 History of Present illness Narrative* Kae Goodrich RN - 06/01/2021 2:25 PM EST Patient discharged to home with at this time. Transports via w/c. * Kae Goodrich RN - 06/01/2021 2:08 PM EST Discharge instructions reviewed with patient and . Both are aware of all upcoming appointments and need for follow up with urology and Dr. Kan after stenting completed on Thursday at [facility]. Education given regarding diaz and diaz care. Supplies provided. Patient and voice understandingof all. Opportunity given for questions to be asked and answered. Patient and voice understanding of all. * Kae Goodrich RN - 06/01/2021 1:17 PM EST Powder [employer]ender attempts to contact patient's Mary for ETA, message left on voicemail. * Rashel Cárdenas PT - 06/01/2021 10:27 AM EST Physical Therapy Facility/Department: [facility] Daily Treatment Note NAME: Piotr Kerr : 1960 Date of Service: 06/01/2021 Discharge Recommendations: Continue to assess pending progress Assessment Treatment Diagnosis: general weakness, unsteady gait Prognosis: Good Activity Tolerance Activity Tolerance: Patient limited by fatigue;Patient limited by pain;Patient Tolerated treatment well Patient Diagnosis(es): There were no encounter diagnoses. 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 has a past surgical history that includes Cardiac catheterization (05/29/2021). Restrictions Restrictions/Precautions Restrictions/Precautions: General Precautions,Fall Risk Subjective General Chart Reviewed: Yes Additional Pertinent Hx: CVA affect L side Response To Previous Treatment: Patient with no complaints from previous session. Family / Caregiver Present: No Subjective Subjective: Pt agreeable to sitting on EOB but declines transfers at this time. Orientation Orientation Overall Orientation Status: Within Functional Limits Cognition Objective Bed mobility Rolling to Left: Supervision Rolling to Right: Supervision Supine to Sit: Contact guard assistance;Stand by assistance Sit to Supine: Minimal assistance Scooting: Minimal assistance Comment: Vc's for participation Transfers Comment: Pt declines transfers at this time Balance Sitting - Static: Good Sitting - Dynamic: Good;- Exercises Hip Flexion: x15 Hip Abduction: x20 Knee Long Arc Quad: x15 Ankle Pumps: x15 Comments: Seated B LE ther ex x15 completed EOB. Goals Short term goals Time Frame for Short term goals: 20 days Short term goal 1: Pt will be educated on his POC Short term goal 2: Pt will perform all transfers SBA in order to increase independence Short term goal 3: Pt will ambulate >50 feet with SPC SBA in order to use the bathroom Short term goal 4: Pt will increase dynamic standing balance to Fair + in order to reduce fall risk Patient Goals Patient goals : to feel better and go home Plan Plan Times per week: 7x/wk Times per day: Twice a day Specific instructions for Next Treatment: 2x/daily except weekends 1x/daily Current Treatment Recommendations: Strengthening,Neuromuscular Re-education,Home Exercise Program,Manual Therapy - Soft Tissue Mobilization,Safety Education & Training,Balance Training,Endurance Training,Patient/Caregiver Education & Training,Functional Mobility Training,Transfer Training,Gait Training Safety Devices Type of devices: All fall risk precautions in place,Call light within reach,Nurse notified,Patient at risk for falls,Left in bed Therapy Time Individual Concurrent Group Co-treatment Time In 1001 Time Out 1026 Minutes 25 Timed Code Treatment Minutes: 24 Minutes Rashel Cárdenas PT, DPT * Jessica Arango RN - 06/01/2021 7:53 AM EST Assessment done and charted. Patient did c/o some muscle spasms, which is chronic for him. Powder Blender informed patient that it was to soon for Flexeril and was given PRN tylenol. Patient reminded that hewill be discharged today once arrives. Patient voiced understanding. * Yumiko Sarabia - 06/01/2021 1:35 AM EST Patient asleep in bed at this time. Will continue to monitor. * Yumiko Sarabia - 05/31/2021 11:59 PM EST Patient awake an in bed. Patient c/o pain/muscle spasms in his left leg. Tylenol given at this time. Patient repositioned in bed. VS and assessment completed. Denies any other needs at this time. Will continue to monitor * Yumiko Sarabia - 05/31/2021 7:45 PM EST Patients called and confirmed that he would be discharged tomorrow. Rn confirmed at this time.The patients stated she would be here around noon or early afternoon. RN also told the that we would help provide education about care of the diaz while going over the discharge instructions. * Yumiko Sarabia - 05/31/2021 7:36 PM EST Vs and assessment completed. Patient c/o of the intermittent muscle spasms in his hip area. Otherwise no complaints. Plan of care gone over with the patient. Diaz emptied. Diaz care provided. RN tried to help make patient more comfortable in bed. Provided pillow support. Water refreshed. Denies any other needs. Will continue to monitor. * Kae Goodrich RN - 05/31/2021 2:19 PM EST Message left with Urology office answering machine to give update on patient and notify of need forfollow up appointment next week. Request patient be contacted with appointment time. Will educate patient on need for appointment as well. * Julissa Whelan PTA - 05/31/2021 2:18 PM EST Physical Therapy Facility/Department: [facility] Daily Treatment Note NAME: Piotr Kerr : 1960 Date of Service: 05/31/2021 Discharge Recommendations: Continue to assess pending progress Assessment Treatment Diagnosis: general weakness, unsteady gait Prognosis: Good Decision Making: Medium Complexity PT Education: PT Role;Home Exercise Program REQUIRES PT FOLLOW UP: Yes Activity Tolerance Activity Tolerance: Patient limited by fatigue;Patient limited by pain;Patient Tolerated treatment well Patient Diagnosis(es): There were no encounter diagnoses. 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 has a past surgical history that includes Cardiac catheterization (05/29/2021). Restrictions Restrictions/Precautions Restrictions/Precautions: General Precautions,Fall Risk Subjective General Chart Reviewed: Yes Additional Pertinent Hx: CVA affect L side Response To Previous Treatment: Patient with no complaints from previous session. Family / Caregiver Present: No Referring Practitioner: Dr. Vasquez Subjective Subjective: Pt reports feeling tired this PM, just got back to bed and would like to stay in bed for now d/t just getting a muscle relaxer. Pt reports 8/10 L hip pain with movement, no pain at rest. Orientation Orientation Overall Orientation Status: Within Functional Limits Cognition Objective Balance Posture: Fair Sitting - Static: Good Sitting - Dynamic: Good;- Standing - Static: Fair Standing - Dynamic: Fair;- Exercises Straight Leg Raise: x20 Quad Sets: x20 Heelslides: x20 Gluteal Sets: x15 Hip Flexion: x15 Hip Abduction: x20 Knee Long Arc Quad: x15 Ankle Pumps: x15 Comments: BLE ther ex completed in supine, AAROM as needed. Pt required frequent RBs d/t fatigue. Goals Short term goals Time Frame for Short term goals: 20 days Short term goal 1: Pt will be educated on his POC Short term goal 2: Pt will perform all transfers SBA in order to increase independence Short term goal 3: Pt will ambulate >50 feet with SPC SBA in order to use the bathroom Short term goal 4: Pt will increase dynamic standing balance to Fair + in order to reduce fall risk Patient Goals Patient goals : to feel better and go home Plan Plan Times per week: 7x/wk Times per day: Twice a day Specific instructions for Next Treatment: 2x/daily except weekends 1x/daily Current Treatment Recommendations: Strengthening,Neuromuscular Re-education,Home Exercise Program,Manual Therapy - Soft Tissue Mobilization,Safety Education & Training,Balance Training,Endurance Training,Patient/Caregiver Education & Training,Functional Mobility Training,Transfer Training,Gait Training Safety Devices Type of devices: All fall risk precautions in place,Call light within reach,Nurse notified,Patient at risk for falls,Left in bed Therapy Time Individual Concurrent Group Co-treatment Time In 1350 Time Out 1413 Minutes 23 Julissa Whelan PTA * Alma Kan MD - 05/31/2021 9:22 AM EST Images from the original note were not included. Plan Patient: Piotr Kerr : 1960 Date of Admission: 05/27/2021 Primary Care Physician: Jorge Pritchett Today's Date: 05/31/2021 PROGRESS NOTE: Chest discomfort, shortness of breath HPI: I had the pleasure of seeing Mr. Kerr for follow up in the hospital today who is a 60 y.o.male with a history of intermittent chest discomfort. Mr. Kerr has a past cardiac history of 2 stents placed in 2013 or 2015 in [place] at [facility]. He also has a history of hypertension and high cholesterol over the past 5-7 years. He also notes he is a diabetic and uses insulin 3 times per day. He had a stroke in June 2020, he was seen and evaluated at [facility]. Since his storke he has had continues left sidedweakness. CT head with and without contrast 07/27/2019: moderate atherosclerotic narrowing of the parasellar carotid arteries bilaterally, right greater than left. Vessels of the brain are otherwise widely patent. Mild atherosclerotic disease of right carotid bulb. No suspicious narrowing of carotid arteries. Echo 07/28/2019: EF 50-55% Carotid US 07/28/2019: 0-49% stenosis within the right and left carotid arteries. No significant atherosclerotic plaque. Echo 01/21/2021: EF 50-55%. Mild tricuspid regurgitation. Mild pulmonary hypertension. Abdominal US 01/21/2021: Cholelithiasis Culture positive for E coli 01/19/21 Stress Test performed 04/30/2021: Abnormal myocardial perfusion study. There is a moderate perfusiondefect of moderate intensity in the anterolateral, lateral and inferolateral regions during stress imaging which is most consistent with ischemia, but may be due to artifact. In addition, transient ischemic dilatation (TID) of the left ventricle is seen which can be seen with uncontrolled hypertension, severe left main coronary artery disease, or severe 3-vessel coronary artery disease. (TID: 1.23) Global left ventricular systolic function was normal, without regional wall motion abnormalities.No significant electrocardiographic evidence of myocardial ischemia during EKG monitoring without significant associated arrhythmias. Echo done on 05/27/2020- EF 50-55% Definity contrast was used for better visualization of the apex. The left ventricular cavity size is within normal limits and the left ventricular wall thickness is mildly increased. Mild thinning and hypokinesis of the apex noted. No evidence of apical Thrombi. The left atrium is mildly dilated (29-33) with a left atrial volume index of 32 ml/m2. No significant valvular abnormalities. Evidence of mild (grade I) diastolic dysfunction is seen. Cardiac cath done on 05/29/2021- Severe three vessel coronary artery disease involving a 90% proximalRCA stenosis, a 70% distal RCA stenosis, a 100% probably chronic total occlusion of a OM1 that has a long stent in the proximal vessel mid 90% stenosis in the left anterior descending coronary artery. Normal left ventricular end diastolic pressure He was tested and diagnosed with sleep apnea recently, he is not sleeping well. He has severe leg cramps at night and sleeps in his recliner. He is also not eating well, his states he does eat three meals per day so he can take his insulin. Mr. Kerr is resting comfortably in bed today. [facility] He is awaiting stent placement but there are currently no beds available. Dr Kan did speak with Dr Leos who was able to add him to their schedule for an outpatient heart catheterization on 06/03/2021. He says he is doing okay. He is not requiring oxygen this morning. He does continue to have left hip pain with movement, XR of his left hip revealed mild arthritis but no acute findings. Since his stroke he has had continued left sided weakness. He has nothad a bowel movement in a couple of days, but he denies any abdominal pain. He has been able to pass gas. Mr. Kerr denied any current or recent chest pain, abdominal pain, bleeding problems, problems with his medications or any other concerns at this time. No nausea or vomiting. I called his and spend time with her over the phone explaining to her that because of the current COVID-19 pandemic and the unavailability of beds, we can discharge him tomorrow morning and he is a scheduled for an outpatient PCI on Thursday at noon at [facility]. I told her he is not stable enough to be discharged because he is coronary artery disease blockages are chronic. Atthe same time I asked her to bring him to the emergency room anytime if he has chest pain worseningshortness of breath if this can be life-threatening given severe three-vessel coronary artery disease. Patient and his verbalized understanding. PAST MEDICAL HISTORY: Past Medical History: Diagnosis Date Cerebrovascular accident (CVA) ([facility]) Chronic pain Essential hypertension H/O heart artery stent 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 ([facility]) Type 2 diabetes mellitus without complication ([facility]) CURRENT ALLERGIES: Patient has no known allergies. REVIEW OF SYSTEMS: 14 systems were reviewed. Pertinent positives and negatives as above, all else negative. Past Surgical History: Procedure Laterality Date CARDIAC CATHETERIZATION 05/29/2021 Dr Mars/[facility]/right radial-Severe three vessel coronary artery disease involving a 90% proximal RCA stenosis, a 70% distal RCA stenosis, a 100% probably chronic total occlusion of a OM1 that has a long stent in the proximal vessel mid 90% stenosis in the left anterior descending coronary artery. Consult interventional cardiology for angioplasty and/or stenting. Social History: Social History Tobacco Use Smoking status: Never Smoker Smokeless tobacco: Never Used Vaping Use Vaping Use: Never used Substance Use Topics Alcohol use: Never Drug use: Never CURRENT MEDICATIONS: Outpatient Medications Marked as Taking for the 05/27/21 encounter (Hospital Encounter) Medication Sig Dispense Refill HUMALOG KWIKPEN 100 UNIT/ML SOPN 3 times daily (before meals) SSIC 100-150 6 units 151-200 12 units 201-250 16 units 251-300 20 units NONFORMULARY Take 1 capsule by mouth 2 times daily BP NatRelief 11 Cholecalciferol (VITAMIN D3) 1.25 MG (35285 UT) CAPS Take 1 capsule by mouth once a week Take 1 every Thursday. losartan (COZAAR) 25 MG tablet Take 25 mg by mouth daily tamsulosin (FLOMAX) 0.4 MG capsule Take 1 capsule by mouth every evening 30 capsule 11 amLODIPine (NORVASC) 5 MG tablet Take 5 mg by mouth daily furosemide (LASIX) 20 MG tablet Take 40 mg by mouth 2 times daily aspirin 81 MG EC tablet Take 81 mg by mouth daily pravastatin (PRAVACHOL) 10 MG tablet Take 10 mg by mouth daily insulin glargine (LANTUS) 100 UNIT/ML injection vial Inject 25 Units into the skin 2 times daily furosemide 40 mg Oral Daily sodium chloride flush 5-40 mL IntraVENous 2 times per day diphenhydrAMINE 50 mg Oral Once carvedilol 3.125 mg Oral BID WC isosorbide mononitrate 30 mg Oral Daily amLODIPine 5 mg Oral Daily aspirin 81 mg Oral Daily insulin glargine 25 Units SubCUTAneous BID losartan 25 mg Oral Daily pravastatin 10 mg Oral Daily tamsulosin 0.4 mg Oral QPM insulin lispro 0-6 Units SubCUTAneous TID WC insulin lispro 0-3 Units SubCUTAneous Nightly sodium chloride flush 10 mL IntraVENous 2 times per day enoxaparin 40 mg SubCUTAneous Daily FAMILY HISTORY: family history includes Diabetes in his mother; Heart Disease in his father; Thyroid Disease in his sister. Physical Examination: BP 126/67 Pulse 61 Temp 98.1 F (36.7 C) (Temporal) Resp 20 Ht 6' (1.829 m) Wt 235 lb 1.6 oz (106.6 kg) SpO2 90% BMI 31.89 kg/m Body mass index is 31.89 kg/m . Constitutional: He appeared oriented to person and place. He appears well- developed and well-nourished. In no acute distress. HEENT: Normocephalic and atraumatic. No JVD present. Carotid bruit is not present. No mass and no thyromegaly present. No lymphadenopathy noted. Cardiovascular: Normal rate, regular rhythm, normal heart sounds. Exam reveals no gallop and no friction rubs. 1/6 systolic murmur, 2nd intercostal space on the RIGHT just lateral to the sternum Pulmonary/Chest: Effort normal and breath sounds normal. No respiratory distress. He has no wheezes, rhonchi or rales. Abdominal: Soft, non-tender. He exhibits no organomegaly, mass or bruit. Extremities: No significant edema. No cyanosis or clubbing. 2+ radial and carotid pulses. Distal extremity pulses: 2+ bilaterally. Left hip tender to palpation. Unable to lift left leg, movement causes pain. Neurological: Alertness and orientation as per Constitutional exam. No evidence of gross cranial nerve deficit. Coordination appeared normal. Skin: Skin is warm and dry. There is no rash or diaphoresis. Psychiatric: He has a normal mood and affect. His speech is normal and behavior is normal. MOST RECENT LABS ON RECORD: Lab Results Component Value Date WBC 4.1 05/31/2021 HGB 12.0 (L) 05/31/2021 HCT 35.9 (L) 05/31/2021 PLT 188 05/31/2021 CHOL 109 05/29/2021 TRIG 117 05/29/2021 HDL 19 (L) 05/29/2021 ALT 20 05/20/2021 AST 16 05/20/2021 NA 141 05/31/2021 K 3.9 05/31/2021 CL 105 05/31/2021 CREATININE 1.59 (H) 05/31/2021 BUN 21 05/31/2021 CO2 24 05/31/2021 PSA 0.320 08/15/2020 LABA1C 6.4 (H) 05/27/2021 ASSESSMENT: Unexplained shortness of breath suggestive of angina equivalent. Abnormal stress test. Atherosclerotic heart disease status post angioplasty with stent placement. Essential hypertension. Dyslipidemia. History of stroke and left-sided hemiparesis. Left hip pain PLAN: Atherosclerotic Heart Disease: Cardiac cath on 05/29/2021 showed Severe three vessel coronary artery disease involving a 90% proximal RCA stenosis, a 70% distal RCA stenosis, a 100% probably chronic total occlusion of a OM1 that has a long stent in the proximal vessel mid 90% stenosis in the left anterior descending coronary artery. Normal left ventricular end diastolic pressure. Awaiting transfer to [facility] for stents, however there are no beds available at this time. Dr Kan did speak with Dr Leos who was able to schedule him for an outpatient catheterization for stent placement this coming Thursday. At this time he has remained stable throughout the hospital stay and dueto the current bed crisis we discussed discharging him to home over the weekend. We had a very long discussion about how his blockage did not occur acutely. We discussed in the meantime to relax and not over exert himself over the weekend. In addition he was counciled to go to the emergency room for any degree of worsening shortness of breath or chest pain. Dr Kan is going to call his to have a further discussion about the plan. Mr. Kerr Did not have any additional questions and is in agreement with the plan although it is sub optimal. Antiplatelet Agent: Continue Aspirin 81 mg daily. Beta Jayde: Continue carvedilol 3.25 mg twice daily. Anti-anginal medications: Continue Imdur 30 mg daily. Nitroglycerin as needed. Continue amlodipine 5 mg daily. Cholesterol Reduction Therapy: Continue pravastatin (pravachol) 10 mg. Stage IIIa chronic kidney disease. We will continue to monitor. Hip pain: Hip XR showed mild osteoarthritis Chronic systolic heart failure: [place] Heart Association Class: IV (Severe limitations, symptoms even at rest) Beta Jayde: Continue carvedilol 3.125 mg twice daily as above. KIRIT Inibitor/ARB: Continue losartan (Cozaar) 25 mg daily. Diuretics: Continue Lasix Heart failure counseling: I told them to start wearing lower extremity compression stockings and I advised them to try and keep their legs up whenever possible and to limit salt in their diet. Additional Testing List: None Intermittent Claudication: o Lower extremity doppler done on 04/30/2021: Mild PAD in the LLE. Essential Hypertension: Controlled- Beta Jayde: Start carvedilol 3.125 mg twice daily KIRIT Inibitor/ARB: Continue losartan (Cozaar) 25 mg daily. Calcium Channel Jayde: Continue amlodipine (Norvasc) 5 mg once daily. Diuretics: Continue Lasix Hyperlipidemia: Mixed Cholesterol Reduction Therapy: Continue pravastatin (pravachol) 10 mg. Known Obstructive Sleep Apnea: He is awaiting his CPAP machine, he was told this can take 4-6 weeks Stage 3 CKD: Continue Lasix Left adrenal adenoma 12 mm benign a this time Continue current treatment and follow up At this time the plan will be to discharge him to his home later today and follow up with Dr Beal morning to have his cardiac catheterization. I discussed the plan with Dr Kan, he is in agreement with the treatment plan. I discussed this with Cassie Morejon CNP working with the [facility] who was also in agreement with the plan. We will have him follow up with us as an outpatient in 2-3 weeks. Sincerely, Beata Harris PA-C [facility] [address] [place] [address] , I believe that the risk of significant morbidity and mortality related to the patient's current medical conditions are: high. May 31, 2021 * Kae Goodrich RN - 05/31/2021 7:58 AM EST Patient's Mary updated via telephone. * Lamont Vasquez MD - 05/31/2021 7:39 AM EST Progress Note Lamont Vasquez MD OBJECTIVE: Patient seen for f/u of Coronary artery disease involving [place] heart with angina pectoris and documented spasm (HCC). He had left heart cath and has Severe three vessel coronary artery disease involving a 90% proximal RCA stenosis, a 70% distal RCA stenosis, a 100% probably chronic total occlusion of a OM1 that has a long stent in the proximal vessel mid 90% stenosis in the left anterior descending coronary artery. Normal left ventricular end diastolic pressure. Consult to interventional cardiology for consideration of angioplasty and/or stenting of the patients severe stenosis, he is awaiting transfer [facility]. Denies chest pain.has dry mouth.weight up 4 lbs since admission renal function improving ROS: Constitutional: negative for fevers, and negative for chills. Respiratory: positive for shortness of breath,is hypoxic and on oxygen, negative for cough, and negative for wheezing Cardiovascular: negative for chest pain, and negative for palpitations Gastrointestinal: negative for abdominal pain, negative for nausea,negative for vomiting, negative for diarrhea, and negative for constipation All other systems were reviewed with the patient and are negative unless otherwise stated in HPI OBJECTIVE: Vitals: Temp: 98.2 F (36.8 C) BP: (!) 142/58 Resp: 20 Pulse: 65 SpO2: 90 % 24HR INTAKE/OUTPUT: Intake/Output Summary (Last 24 hours) at 05/31/2021 0768 Last data filed at 05/31/2021 0457 Gross per 24 hour Intake 1220 ml Output 1775 ml Net -555 ml Exam: GEN: Awake, alert and oriented x3. EYES: EOMI, pupils equal NECK: Supple. No lymphadenopathy. No carotid bruit CVS: regular rate and rhythm, 2/6 systolic murmur PULM: has bilat basal rales, acute respiratory distress ABD: Bowels sounds normal. Abdomen is soft. No distention. no tenderness to palpation. EXT: no edema bilaterally . No calf tenderness. No edema NEURO: Moves all extremities. Motor and sensory are grossly intact SKIN: No rashes. No skin lesions. Diagnostic Data: All available data reviewed Lab Results Component Value Date WBC 4.1 05/31/2021 HGB 12.0 (L) 05/31/2021 MCV 90.7 05/31/2021 PLT 188 05/31/2021 Lab Results Component Value Date GLUCOSE 140 (H) 05/31/2021 BUN 21 05/31/2021 CREATININE 1.59 (H) 05/31/2021 NA 141 05/31/2021 K 3.9 05/31/2021 CALCIUM 8.7 05/31/2021 CL 105 05/31/2021 CO2 24 05/31/2021 PROBLEM LIST: Principal Problem: Coronary artery disease involving [place] heart with angina pectoris and documented spasm (HCC) Active Problems: NSTEMI (non-ST elevated myocardial infarction) (HCC) Benign essential HTN CHRIS (obstructive sleep apnea) Hypoxia Abnormal stress test S/P angioplasty with stent Dyslipidemia History of stroke Resolved Problems: * No resolved hospital problems. * ASSESSMENT / PLAN: Coronary artery disease involving [place] heart with angina pectoris and documented spasm (HCC) Principal Problem: Coronary artery disease involving [place] heart with angina pectoris and documented spasm (HCC) Active Problems: NSTEMI (non-ST elevated myocardial infarction) (HCC) Benign essential HTN CHRIS (obstructive sleep apnea) Hypoxia Abnormal stress test S/P angioplasty with stent Dyslipidemia History of stroke Resolved Problems: * No resolved hospital problems. * hypoxia- oxygen,continue lasix 40 mg daily Nutrition status: Well developed, well nourished with no malnutrition DVT prophylaxis: Lovenox High risk medications: none Disposition: Discharge plan is transfer to [facility] Lamont Vasquez MD , M.D. 05/31/2021 7:39 AM * Ivy Yin RN - 05/31/2021 12:56 AM EST Pt resting comfortably upon arrive. Pt is on room air. Vitals and second assessment done at this time. * Hannah Whitfield RCP - 05/30/2021 11:54 PM EST Pt requesting to take bipap off due to unable to tolerate. Powder Blender took bipap mask off and left pt on room air. RN made aware. Will continue to monitor. * Ivy Yin RN - 05/30/2021 9:36 PM EST Powder Blender at bedside for shift assessment. Patient sitting up in bed, respirations are even and unlabored while on room air. Vitals obtained and assessment completed, see flowsheet for details. Patient medications administered at this time. Pt denies being in pain. pt denies further needs at this time. Call light in reach, will continue to monitor. * Kae Goodrich RN - 05/30/2021 6:01 PM EST Update given to patients Mary via telephone. * Kae Goodrich RN - 05/30/2021 3:37 PM EST Patient resting with eyes closed, no s/s discomfort or distress. Call light in reach. * Rashel Cárdenas PT - 05/30/2021 3:33 PM EST [facility] Inpatient/Observation/Outpatient Rehabilitation Date: 05/30/2021 Patient Name: Piotr Kerr [x] Inpatient Acute/Observation [] Outpatient : 1960 [] Pt no showed for scheduled appointment [x] Pt refused/declined therapy at this time due to: Pt refused PT this afternoon d/t fatigue and just receiving medication to help him sleep. [] Pt cancelled due to: [] No Reason Given [] Sick/ill [] Other: Will attempt evaluation at our earliest opportunity. Rashel Cárdenas PT, DPT Date: 05/30/2021 * SID Acosta - 05/30/2021 2:40 PM EST Occupational Therapy Facility/Department: [facility] Daily Treatment Note NAME: Piotr Kerr : 1960 Date of Service: 05/30/2021 Discharge Recommendations: Continue to assess pending progress Assessment OT Education: Energy Conservation Activity Tolerance Activity Tolerance: Treatment limited secondary to medical complications (free text);Patient limited by fatigue Safety Devices Type of devices: All fall risk precautions in place;Left in bed;Nurse notified;Call light within reach Patient Diagnosis(es): There were no encounter diagnoses. 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 has a past surgical history that includes Cardiac catheterization (05/29/2021). Restrictions Restrictions/Precautions Restrictions/Precautions: General Precautions,Fall Risk Subjective General Chart Reviewed: Yes Patient assessed for rehabilitation services?: Yes Family / Caregiver Present: No Referring Practitioner: Cherelle Diagnosis: CAD Subjective Subjective: pt reports 4/10 L hip pain when it is relaxed and not having spasm. 9/10 when tensed. Pt reports very tired. General Comment Comments: Agreeable to agreeable to OT but very fatigued d/t meds. Orientation Objective Type of ROM/Therapeutic Exercise Type of ROM/Therapeutic Exercise: Free weights Comment: Pt tolerated 1 # free weight x 15 reps x 6 planes with F tolerance and little discomfort in L UE with certain exercises. Plan Plan Times per week: 7 Times per day: Daily Current Treatment Recommendations: Strengthening,ROM,Balance Training,Functional Mobility Training,Endurance Training,Patient/Caregiver Education & Training,Self-Care / ADL,Equipment Evaluation, Education, & procurement,Safety Education & Training G-Code OutComes Score AM-PAC Score Goals Short term goals Time Frame for Short term goals: 21 visits Short term goal 1: Patient to be educated on d/c folder, AE/DME and home safety to ensure safe return home c . Short term goal 2: Patient to complete toileting, grooming and hygiene c Mod I to ensure safe return home. Short term goal 3: Patient to complete UB bathing/dressing c Mod I and LB bathing/dressing c min A to improve ADL indep. Short term goal 4: Patient to engage in 15 minutes of ther ex/ther act to improve UE/UB strength and act ailin for self care, mobility and transfers. Short term goal 5: Patient to tolerate standing >6' while participating in functional task of choice to improve standing tolerance, balance and safety during ADL. Therapy Time Individual Concurrent Group Co-treatment Time In 1433 Time Out 1448 Minutes 15 OLGA Acosta/SID Roberts * Kae Goodrich RN - 05/30/2021 2:04 PM EST Flexeril admin at this time. Patient educated on medication, voices understanding. * Kae Goodrich RN - 05/30/2021 1:44 PM EST Patient unable to void in urinal, refuses OOB d/t left hip pain. Bladder scan shows 956cc retained.ABDULKADIR Matthews notified, orders received. Diaz catheter placed at this time using sterile technique. Patient tolerates well. 775cc clear yellow urine obtained immediately. While nurse placing diaz, notice involuntary muscle spasming to left upper anterior thigh into hip area. Patient states this is happening more frequently and causes increased discomfort. ABDULKADIR Matthews notified of this as well. Awaiting orders. * Alma Kan MD - 05/30/2021 9:41 AM EST Images from the original note were not included. I, Yumiko Sanchez am scribing for and in the presence of Alma Kan MD, F.A.C.C.. Patient: Piotr Kerr : 1960 Date of Visit: May 30, 2021 REASON FOR VISIT / CONSULTATION: No chief complaint on file. History of Present Illness: Dear Jorge Pritchett, I had the pleasure of seeing Piotr Kerr in my office today. Mr. Kerr is a 60 y.o. male who recently underwent a cardiovascular stress test because of increased shortness of breath which shownevidence of reversible ischemia. Mr. Kerr has a past cardiac history of 2 stents placed in 2013 or 2015 in [place] at [facility]. He also has a history of hypertension and high cholesterol over the past 5-7 years. He also notes he is a diabetic and uses insulin 3 times per day. He had a stroke in June 2020, he was seen and evaluated at [facility]. Since his storke he has had continues left sidedweakness. CT head with and without contrast 07/27/2019: moderate atherosclerotic narrowing of the parasellar carotid arteries bilaterally, right greater than left. Vessels of the brain are otherwise widely patent. Mild atherosclerotic disease of right carotid bulb. No suspicious narrowing of carotid arteries. Echo 07/28/2019: EF 50-55% Carotid US 07/28/2019: 0-49% stenosis within the right and left carotid arteries. No significant atherosclerotic plaque. Echo 01/21/2021: EF 50-55%. Mild tricuspid regurgitation. Mild pulmonary hypertension. Abdominal US 01/21/2021: Cholelithiasis Culture positive for E coli 01/19/21 Stress Test performed 04/30/2021: Abnormal myocardial perfusion study. There is a moderate perfusiondefect of moderate intensity in the anterolateral, lateral and inferolateral regions during stress imaging which is most consistent with ischemia, but may be due to artifact. In addition, transient ischemic dilatation (TID) of the left ventricle is seen which can be seen with uncontrolled hypertension, severe left main coronary artery disease, or severe 3-vessel coronary artery disease. (TID: 1.23) Global left ventricular systolic function was normal, without regional wall motion abnormalities.No significant electrocardiographic evidence of myocardial ischemia during EKG monitoring without significant associated arrhythmias. Echo done on 05/27/2020- EF 50-55% Definity contrast was used for better visualization of the apex. The left ventricular cavity size is within normal limits and the left ventricular wall thickness is mildly increased. Mild thinning and hypokinesis of the apex noted. No evidence of apical Thrombi. The left atrium is mildly dilated (29-33) with a left atrial volume index of 32 ml/m2. No significant valvular abnormalities. Evidence of mild (grade I) diastolic dysfunction is seen. Cardiac cath done on 05/29/2021- Severe three vessel coronary artery disease involving a 90% proximalRCA stenosis, a 70% distal RCA stenosis, a 100% probably chronic total occlusion of a OM1 that has a long stent in the proximal vessel mid 90% stenosis in the left anterior descending coronary artery. Normal left ventricular end diastolic pressure He was tested and diagnosed with sleep apnea recently, he is not sleeping well. He has severe leg cramps at night and sleeps in his recliner. He is also not eating well, his states he does eat three meals per day so he can take his insulin. Mr. Kerr is currently waiting to be transferred to [facility] post cardiac cath yesterday. He is awaiting stent placement but there are currently no beds available. He says he is doing okay. He has very dry mouth. He is now wearing oxygen since last night due to oxygen dropping to 60%. His said he has been having extreme tremors and pain in his left hip. Movement makes it much worse. He has not had a bowel movement in a couple of days, but he denies any abdominal pain. Mr. Kerr denied any current or recent chest pain, abdominal pain, bleeding problems, problems with his medications or any other concerns at this time. 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 REVIEW OF SYSTEMS: 14 systems were reviewed. Pertinent positives and negatives as above, all else negative. Past Surgical History: Procedure Laterality Date CARDIAC CATHETERIZATION 05/29/2021 Dr Mars/[facility]/right radial-Severe three vessel coronary artery disease involving a 90% proximal RCA stenosis, a 70% distal RCA stenosis, a 100% probably chronic total occlusion of a OM1 that has a long stent in the proximal vessel mid 90% stenosis in the left anterior descending coronary artery. Consult interventional cardiology for angioplasty and/or stenting. Social History: Social History Tobacco Use Smoking status: Never Smoker Smokeless tobacco: Never Used Vaping Use Vaping Use: Never used Substance Use Topics Alcohol use: Never Drug use: Never CURRENT MEDICATIONS: Outpatient Medications Marked as Taking for the 05/27/21 encounter (Hospital Encounter) Medication Sig Dispense Refill HUMALOG KWIKPEN 100 UNIT/ML SOPN 3 times daily (before meals) SSIC 100-150 6 units 151-200 12 units 201-250 16 units 251-300 20 units NONFORMULARY Take 1 capsule by mouth 2 times daily BP NatRelief 11 Cholecalciferol (VITAMIN D3) 1.25 MG (54809 UT) CAPS Take 1 capsule by mouth once a week Take 1 every Thursday. losartan (COZAAR) 25 MG tablet Take 25 mg by mouth daily tamsulosin (FLOMAX) 0.4 MG capsule Take 1 capsule by mouth every evening 30 capsule 11 amLODIPine (NORVASC) 5 MG tablet Take 5 mg by mouth daily furosemide (LASIX) 20 MG tablet Take 40 mg by mouth 2 times daily aspirin 81 MG EC tablet Take 81 mg by mouth daily pravastatin (PRAVACHOL) 10 MG tablet Take 10 mg by mouth daily insulin glargine (LANTUS) 100 UNIT/ML injection vial Inject 25 Units into the skin 2 times daily furosemide 40 mg Oral Daily sodium chloride flush 5-40 mL IntraVENous 2 times per day diphenhydrAMINE 50 mg Oral Once carvedilol 3.125 mg Oral BID WC isosorbide mononitrate 30 mg Oral Daily amLODIPine 5 mg Oral Daily aspirin 81 mg Oral Daily insulin glargine 25 Units SubCUTAneous BID losartan 25 mg Oral Daily pravastatin 10 mg Oral Daily tamsulosin 0.4 mg Oral QPM insulin lispro 0-6 Units SubCUTAneous TID WC insulin lispro 0-3 Units SubCUTAneous Nightly sodium chloride flush 10 mL IntraVENous 2 times per day enoxaparin 40 mg SubCUTAneous Daily FAMILY HISTORY: family history includes Diabetes in his mother; Heart Disease in his father; Thyroid Disease in his sister. Physical Examination: BP (!) 106/53 Pulse 58 Temp 98.3 F (36.8 C) (Oral) Resp 16 Ht 6' (1.829 m) Wt 231 lb 12.8oz (105.1 kg) SpO2 96% BMI 31.44 kg/m Body mass index is 31.44 kg/m . Constitutional: He appeared oriented to person and place. He appears well- developed and well-nourished. In no acute distress. HEENT: Normocephalic and atraumatic. No JVD present. Carotid bruit is not present. No mass and no thyromegaly present. No lymphadenopathy noted. Cardiovascular: Normal rate, regular rhythm, normal heart sounds. Exam reveals no gallop and no friction rubs. 1/6 systolic murmur, 2nd intercostal space on the RIGHT just lateral to the sternum Pulmonary/Chest: Effort normal and breath sounds normal. No respiratory distress. He has no wheezes, rhonchi or rales. Abdominal: Soft, non-tender. He exhibits no organomegaly, mass or bruit. Extremities: No significant edema. No cyanosis or clubbing. 2+ radial and carotid pulses. Distal extremity pulses: 2+ bilaterally. Left hip tender to palpation. Unable to lift left leg, movement causes pain. Neurological: Alertness and orientation as per Constitutional exam. No evidence of gross cranial nerve deficit. Coordination appeared normal. Skin: Skin is warm and dry. There is no rash or diaphoresis. Psychiatric: He has a normal mood and affect. His speech is normal and behavior is normal. MOST RECENT LABS ON RECORD: Lab Results Component Value Date WBC 3.5 05/30/2021 HGB 11.6 (L) 05/30/2021 HCT 35.4 (L) 05/30/2021 PLT 208 05/30/2021 CHOL 109 05/29/2021 TRIG 117 05/29/2021 HDL 19 (L) 05/29/2021 ALT 20 05/20/2021 AST 16 05/20/2021 NA 135 05/30/2021 K 3.5 (L) 05/30/2021 CL 101 05/30/2021 CREATININE 1.61 (H) 05/30/2021 BUN 24 (H) 05/30/2021 CO2 23 05/30/2021 PSA 0.320 08/15/2020 LABA1C 6.4 (H) 05/27/2021 ASSESSMENT: Unexplained shortness of breath suggestive of angina equivalent. Abnormal stress test. Atherosclerotic heart disease status post angioplasty with stent placement. Essential hypertension. Dyslipidemia. History of stroke and left-sided hemiparesis. Left hip pain PLAN: Atherosclerotic Heart Disease: Cardiac cath on 05/29/2021 showed Severe three vessel coronary artery disease involving a 90% proximal RCA stenosis, a 70% distal RCA stenosis, a 100% probably chronic total occlusion of a OM1 that has a long stent in the proximal vessel mid 90% stenosis in the left anterior descending coronary artery. Normal left ventricular end diastolic pressure. Awaiting transfer to [facility] for stents Antiplatelet Agent: Continue Aspirin 81 mg daily. Beta Jayde: Continue carvedilol 3.25 mg twice daily. Anti-anginal medications: Continue Imdur 30 mg daily. Nitroglycerin as needed. Continue amlodipine 5 mg daily. Cholesterol Reduction Therapy: Continue pravastatin (pravachol) 10 mg. Stage IIIa chronic kidney disease. We will continue to monitor. Hip pain: I will order a hip xray to be done. Chronic systolic heart failure: [place] Heart Association Class: IV (Severe limitations, symptoms even at rest) Beta Jayde: Continue carvedilol 3.125 mg twice daily as above. KIRIT Inibitor/ARB: Continue losartan (Cozaar) 25 mg daily. Diuretics: Continue Lasix Heart failure counseling: I told them to start wearing lower extremity compression stockings and I advised them to try and keep their legs up whenever possible and to limit salt in their diet. Additional Testing List: None Intermittent Claudication: o Lower extremity doppler done on 04/30/2021: Mild PAD in the LLE. Essential Hypertension: Controlled- Beta Jayde: Start carvedilol 3.125 mg twice daily KIRIT Inibitor/ARB: Continue losartan (Cozaar) 25 mg daily. Calcium Channel Jayde: Continue amlodipine (Norvasc) 5 mg once daily. Diuretics: Continue Lasix Hyperlipidemia: Mixed Cholesterol Reduction Therapy: Continue pravastatin (pravachol) 10 mg. Known Obstructive Sleep Apnea: He is awaiting his CPAP machine, he was told this can take 4-6 weeks Stage 3 CKD: Continue Lasix Left adrenal adenoma 12 mm benign a this time Continue current treatment and follow up Sincerely, Beata Harris PA-C [facility] [address] [place] [address] , I believe that the risk of significant morbidity and mortality related to the patient's current medical conditions are: high. The documentation recorded by the scribe, accurately and completely reflects the services I personally performed and the decisions made by me. Beata Harris PA-C May 30, 2021 ATTESTATION: I have discussed the case, including pertinent history and exam findings with the Nathalie RAINES. I have evaluated the History, physical findings and pictures of the patient and the tellez elements of theencounter have been performed by me. I have reviewed the laboratory data, other diagnostic studies and discussed them with Nathalie RAINES. I have updated the medical record where necessary. I agree with the assessment, plan and orders as documented by Nathalie RAINES. Sincerely, Alma Kan MD, .[facility] [address] [place] [address] , * Radha A Charles, COOKING CHEF - 05/30/2021 8:54 AM EST Physical Therapy Facility/Department: [facility] Daily Treatment Note NAME: Piotr Kerr : 1960 Date of Service: 05/30/2021 Discharge Recommendations: Continue to assess pending progress Assessment Treatment Diagnosis: general weakness, unsteady gait Prognosis: Good Decision Making: Medium Complexity Patient Education: educated patient on importance of daily exercise, pt with appropriate understanding REQUIRES PT FOLLOW UP: Yes Activity Tolerance Activity Tolerance: Patient limited by fatigue;Patient limited by pain Patient Diagnosis(es): There were no encounter diagnoses. 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 has a past surgical history that includes Cardiac catheterization (05/29/2021). Restrictions Restrictions/Precautions Restrictions/Precautions: General Precautions,Fall Risk Subjective General Chart Reviewed: Yes Additional Pertinent Hx: CVA affect L side Response To Previous Treatment: Patient with no complaints from previous session. Family / Caregiver Present: No Referring Practitioner: Dr. Vasquez Subjective Subjective: Pt rports L hip pain at 8/10 Orientation Orientation Overall Orientation Status: Within Functional Limits Cognition Objective Ambulation Ambulation?: No Exercises Straight Leg Raise: 15x2 Quad Sets: 15x2 Heelslides: 15x2 Hip Abduction: 15x2 Knee Short Arc Quad: 215x Ankle Pumps: 15x2 Comments: Completed LE ther ex supine, AAROM as needed on LLE G-Code OutComes Score AM-PAC Score Goals Short term goals Time Frame for Short term goals: 20 days Short term goal 1: Pt will be educated on his POC Short term goal 2: Pt will perform all transfers SBA in order to increase independence Short term goal 3: Pt will ambulate >50 feet with SPC SBA in order to use the bathroom Short term goal 4: Pt will increase dynamic standing balance to Fair + in order to reduce fall risk Patient Goals Patient goals : to feel better and go home Plan Plan Times per week: 7x/wk Times per day: Twice a day Specific instructions for Next Treatment: 2x/daily except weekends 1x/daily Current Treatment Recommendations: Strengthening,Neuromuscular Re-education,Home Exercise Program,Manual Therapy - Soft Tissue Mobilization,Safety Education & Training,Balance Training,Endurance Training,Patient/Caregiver Education & Training,Functional Mobility Training,Transfer Training,Gait Training Safety Devices Type of devices: All fall risk precautions in place,Left in bed,Patient at risk for falls,Call light within reach,Nurse notified Therapy Time Individual Concurrent Group Co-treatment Time In 0830 Time Out 0854 Minutes 24 Radha Soto, COOKING CHEF * Lamont Vasquez MD - 05/30/2021 7:31 AM EST Progress Note Lamont Vasquez MD OBJECTIVE: Patient seen for f/u of Coronary artery disease involving [place] heart with angina pectoris and documented spasm (HCC). He had left heart cath and has Severe three vessel coronary artery disease involving a 90% proximal RCA stenosis, a 70% distal RCA stenosis, a 100% probably chronic total occlusion of a OM1 that has a long stent in the proximal vessel mid 90% stenosis in the left anterior descending coronary artery. Normal left ventricular end diastolic pressure. Consult to interventional cardiology for consideration of angioplasty and/or stenting of the patients severe stenosis, he is awaiting transfer. ROS: Constitutional: negative for fevers, and negative for chills. Respiratory: positive for shortness of breath,is hypoxic and on oxygen, negative for cough, and negative for wheezing Cardiovascular: negative for chest pain, and negative for palpitations Gastrointestinal: negative for abdominal pain, negative for nausea,negative for vomiting, negative for diarrhea, and negative for constipation All other systems were reviewed with the patient and are negative unless otherwise stated in HPI OBJECTIVE: Vitals: Temp: 98.3 F (36.8 C) BP: (!) 106/53 Resp: 16 Pulse: 58 SpO2: 93 % 24HR INTAKE/OUTPUT: No intake or output data in the 24 hours ending 05/30/21 0734 Exam: GEN: Awake, alert and oriented x3. EYES: EOMI, pupils equal NECK: Supple. No lymphadenopathy. No carotid bruit CVS: regular rate and rhythm, 2/6 systolic murmur PULM: has bilat basal rales, acute respiratory distress ABD: Bowels sounds normal. Abdomen is soft. No distention. no tenderness to palpation. EXT: no edema bilaterally . No calf tenderness. No edema NEURO: Moves all extremities. Motor and sensory are grossly intact SKIN: No rashes. No skin lesions. Diagnostic Data: All available data reviewed Lab Results Component Value Date WBC 3.5 05/30/2021 HGB 11.6 (L) 05/30/2021 MCV 90.1 05/30/2021 PLT 208 05/30/2021 Lab Results Component Value Date GLUCOSE 114 (H) 05/30/2021 BUN 24 (H) 05/30/2021 CREATININE 1.61 (H) 05/30/2021 NA 135 05/30/2021 K 3.5 (L) 05/30/2021 CALCIUM 8.8 05/30/2021 CL 101 05/30/2021 CO2 23 05/30/2021 PROBLEM LIST: Principal Problem: Coronary artery disease involving [place] heart with angina pectoris and documented spasm (HCC) Active Problems: NSTEMI (non-ST elevated myocardial infarction) (HCC) Benign essential HTN CHRIS (obstructive sleep apnea) Hypoxia Resolved Problems: * No resolved hospital problems. * ASSESSMENT / PLAN: Coronary artery disease involving [place] heart with angina pectoris and documented spasm (HCC) Principal Problem: Coronary artery disease involving [place] heart with angina pectoris and documented spasm (HCC) Active Problems: NSTEMI (non-ST elevated myocardial infarction) (HCC) Benign essential HTN CHRIS (obstructive sleep apnea) Hypoxia Resolved Problems: * No resolved hospital problems. * hypoxia- oxygen,resume lasix 40 mg daily Nutrition status: Well developed, well nourished with no malnutrition DVT prophylaxis: Lovenox High risk medications: none Disposition: Discharge plan is transfer to [facility] Lamont Vasquez MD , M.D. 05/30/2021 7:34 AM * Giuliano Berkowitz RN - 05/30/2021 3:19 AM EST Pt put on 3 LNC d/t spo2 in the low 80's down to 72% for Significant amount of time, educated pt why I was putting oxygen on him, and he stated hes suppose to wear oxygen and a cpap at night but had not got the machine at home yet, * Ramses Hardy RN - 05/29/2021 8:05 PM EST The patient is awake and resting in his bed with his family at the bedside. Vitals have been checked and are within the normal. Physical assessment is also completed as of now. Patient is alert and oriented x4. He complained of some left hip spasm/cramp, so PRN Flexeril has been administered at this time. Cardiac cath site is noted to be free of redness and hematoma, normal radial pulses noted, able to move his fingers with no issue. Further needs are assessed. Safety precautions are in place. Will continue to monitor. * Lamont Vasquez MD - 05/29/2021 3:34 PM EST Progress Note Lamont Vasquez MD OBJECTIVE: Patient seen for f/u of Coronary artery disease involving [place] heart with angina pectoris and documented spasm (HCC). He had left heart cath and has Severe three vessel coronary artery disease involving a 90% proximal RCA stenosis, a 70% distal RCA stenosis, a 100% probably chronic total occlusion of a OM1 that has a long stent in the proximal vessel mid 90% stenosis in the left anterior descending coronary artery. Normal left ventricular end diastolic pressure. Consult to interventional cardiology for consideration of angioplasty and/or stenting of the patients severe stenosis. ROS: Constitutional: negative for fevers, and negative for chills. Respiratory: negative for shortness of breath, negative for cough, and negative for wheezing Cardiovascular: negative for chest pain, and negative for palpitations Gastrointestinal: negative for abdominal pain, negative for nausea,negative for vomiting, negative for diarrhea, and negative for constipation All other systems were reviewed with the patient and are negative unless otherwise stated in HPI OBJECTIVE: Vitals: Temp: 97.8 F (36.6 C) BP: 122/67 Resp: 16 Pulse: 72 SpO2: 100 % 24HR INTAKE/OUTPUT: No intake or output data in the 24 hours ending 05/29/21 1534 Exam: GEN: Awake, alert and oriented x3. EYES: EOMI, pupils equal NECK: Supple. No lymphadenopathy. No carotid bruit CVS: regular rate and rhythm, 2/6 systolic murmur PULM: CTA, no wheezes, rales or rhonchi, no acute respiratory distress ABD: Bowels sounds normal. Abdomen is soft. No distention. no tenderness to palpation. EXT: no edema bilaterally . No calf tenderness. NEURO: Moves all extremities. Motor and sensory are grossly intact SKIN: No rashes. No skin lesions. Diagnostic Data: All available data reviewed Lab Results Component Value Date WBC 4.4 05/29/2021 HGB 13.1 05/29/2021 MCV 89.4 05/29/2021 PLT 198 05/29/2021 Lab Results Component Value Date GLUCOSE 98 05/29/2021 BUN 20 05/29/2021 CREATININE 1.54 (H) 05/29/2021 NA 139 05/29/2021 K 3.2 (L) 05/29/2021 CALCIUM 9.7 05/29/2021 CL 102 05/29/2021 CO2 23 05/29/2021 PROBLEM LIST: Principal Problem: Coronary artery disease involving [place] heart with angina pectoris and documented spasm (HCC) Active Problems: NSTEMI (non-ST elevated myocardial infarction) (HCC) Benign essential HTN CHRIS (obstructive sleep apnea) Resolved Problems: * No resolved hospital problems. * ASSESSMENT / PLAN: Coronary artery disease involving [place] heart with angina pectoris and documented spasm (HCC) Principal Problem: Coronary artery disease involving [place] heart with angina pectoris and documented spasm (HCC) Active Problems: NSTEMI (non-ST elevated myocardial infarction) (HCC) Benign essential HTN CHRIS (obstructive sleep apnea) Resolved Problems: * No resolved hospital problems. * Nutrition status: Well developed, well nourished with no malnutrition DVT prophylaxis: Lovenox High risk medications: none Disposition: Discharge plan is transfer to [facility] Lamont Vasquez MD , M.D. 05/29/2021 3:34 PM * Rashel Cárdenas, PT - 05/29/2021 2:25 PM EST Physical Therapy Facility/Department: [facility] Daily Treatment Note NAME: Piotr Kerr : 1960 Date of Service: 05/29/2021 Discharge Recommendations: Continue to assess pending progress Assessment Treatment Diagnosis: general weakness, unsteady gait Prognosis: Good Activity Tolerance Activity Tolerance: Patient Tolerated treatment well Patient Diagnosis(es): There were no encounter diagnoses. 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 has a past surgical history that includes Cardiac catheterization (05/29/2021). Restrictions Restrictions/Precautions Restrictions/Precautions: General Precautions,Fall Risk Subjective General Chart Reviewed: Yes Additional Pertinent Hx: CVA affect L side Response To Previous Treatment: Not applicable Family / Caregiver Present: Yes Referring Practitioner: Dr. Vasquez Subjective Subjective: pt reports Left leg cramps Orientation Orientation Overall Orientation Status: Within Normal Limits Cognition Objective Bed mobility Rolling to Left: Supervision Scooting: Minimal assistance Comment: Vc's for participation in bed mobility Transfers Comment: Pt refuses transfers and ambulation at this time d/t fatigue from recent procedure Ambulation Ambulation?: No WB Status: unrestricted Ambulation 1 Surface: level tile Balance Sitting - Static: Good Exercises Straight Leg Raise: 15x Quad Sets: 15x Heelslides: 15x Hip Flexion: 15x Hip Abduction: 15x Knee Short Arc Quad: 15x Ankle Pumps: 15x Comments: Supine/reclined B LE ther ex complete Goals Short term goals Time Frame for Short term goals: 20 days Short term goal 1: Pt will be educated on his POC Short term goal 2: Pt will perform all transfers SBA in order to increase independence Short term goal 3: Pt will ambulate >50 feet with SPC SBA in order to use the bathroom Short term goal 4: Pt will increase dynamic standing balance to Fair + in order to reduce fall risk Patient Goals Patient goals : to feel better and go home Plan Plan Times per week: 7x/wk Times per day: Twice a day Specific instructions for Next Treatment: 2x/daily except weekends 1x/daily Current Treatment Recommendations: Strengthening,Neuromuscular Re-education,Home Exercise Program,Manual Therapy - Soft Tissue Mobilization,Safety Education & Training,Balance Training,Endurance Training,Patient/Caregiver Education & Training,Functional Mobility Training,Transfer Training,Gait Training Safety Devices Type of devices: All fall risk precautions in place,Left in bed,Patient at risk for falls,Call light within reach,Nurse notified Therapy Time Individual Concurrent Group Co-treatment Time In 1315 Time Out 1339 Minutes 24 Timed Code Treatment Minutes: 23 Minutes Rashel Cárdenas PT, DPT * Urszula Hutson OT - 05/29/2021 12:03 PM EST Occupational Therapy Facility/Department: [facility] Daily Treatment Note NAME: Piotr Kerr : 1960 Date of Service: 05/29/2021 Discharge Recommendations: Continue to assess pending progress Assessment OT Education: OT Role;Energy Conservation;Plan of Care Barriers to Learning: none Activity Tolerance Activity Tolerance: Treatment limited secondary to medical complications (free text);Patient limited by fatigue Safety Devices Safety Devices in place: Yes Type of devices: All fall risk precautions in place;Left in bed;Nurse notified;Call light within reach Patient Diagnosis(es): There were no encounter diagnoses. 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 has a past surgical history that includes Cardiac catheterization (05/29/2021). Restrictions Restrictions/Precautions Restrictions/Precautions: General Precautions,Fall Risk Subjective General Chart Reviewed: Yes Patient assessed for rehabilitation services?: Yes Family / Caregiver Present: Yes Referring Practitioner: Cherelle Diagnosis: CAD Subjective Subjective: Pt reports 7/10 pain in L hip. Pt reports he is pooped and just tired. General Comment Comments: Pt supine in bed with HOB elevated and present. Pt agreeable to OT tx but states he is pooped Orientation Objective Type of ROM/Therapeutic Exercise Type of ROM/Therapeutic Exercise: AROM Comment: Pt tolerated LUE AROM 20 reps x 1 set of chest press, bicep curl, front raise,tricep extension, forearm pronation/supination and scapular protraction/retraction. Pt underwent a heart cath this morning and reports he is very tired. Pt required frequent rest breaks d/t fatigue. Plan Plan Times per week: 7 Times per day: Daily Current Treatment Recommendations: Strengthening,ROM,Balance Training,Functional Mobility Training,Endurance Training,Patient/Caregiver Education & Training,Self-Care / ADL,Equipment Evaluation, Education, & procurement,Safety Education & Training G-Code OutComes Score AM-PAC Score Goals Short term goals Time Frame for Short term goals: 21 visits Short term goal 1: Patient to be educated on d/c folder, AE/DME and home safety to ensure safe return home c . Short term goal 2: Patient to complete toileting, grooming and hygiene c Mod I to ensure safe return home. Short term goal 3: Patient to complete UB bathing/dressing c Mod I and LB bathing/dressing c min A to improve ADL indep. Short term goal 4: Patient to engage in 15 minutes of ther ex/ther act to improve UE/UB strength and act ailin for self care, mobility and transfers. Short term goal 5: Patient to tolerate standing >6' while participating in functional task of choice to improve standing tolerance, balance and safety during ADL. Therapy Time Individual Concurrent Group Co-treatment Time In 1130 Time Out 1145 Minutes 15 Urszula Hutson OT * Selena Mckeon RN - 05/29/2021 10:15 AM EST Pt. Arrived back to [facility] [address] via wheelchair. Pt. Alert and oriented and x4. Pressure dressing clean dry and intact on right wrist with good cap refill to fingers. Pt. Denies any needs at this time. Assessment completed. Vitals obtained. Will continue to monitor. * Myrna Mayen RN - 05/29/2021 9:45 AM EST Called [facility] to initiate transfer to [facility]. Patient is referred to CT Surgeon for PCI per Dr. Mars. * Kena Rose RN - 05/29/2021 9:14 AM EST Vital signs stable. Dressing to access site clean and dry. Resting quietly with eyes closed, respirations easy. Waiting on response from interventionalist. 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 Resting in bed comfortably, assessment completed. Vitals obtained. Pt. Denies any pain at this time. 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 Powder Blender called and updated per patient request. Call light in reach, will continue to monitor. * ELOINA Dunaway - 05/28/2021 4:16 PM EST Spoke with the regarding discharge plans. She would like home health on discharge. Gave her the list of home health agencies to review. Will follow up tomorrow to see who they choose for home health. ELOINA Dunaway * Balbina Davis RN - 05/28/2021 2:38 PM EST Called Nathalie PA in with cardiology, it is okay to allow the patient to eat for the rest of the night and just needs to be NPO 2 hours prior to surgery. Nathalie will make sure there is a diet in to allow adequate time to be NPO. If they cath it will be tomorrow. * Dann Velázquez RD, LD - 05/28/2021 12:51 PM EST Nutrition Assessment Type and Reason for Visit: Initial,Patient Education Nutrition Recommendations/Plan: Encourage heart healthy choices Nutrition Assessment: Food and nutrition related knowledge deficit r/t cardiac dysfunction, AEB home food choices. Patient and spouse to report lesser use of salt r/t kidney problems, which will aid success in limiting saturated fats. Literature provided. Pending heart cath today. Malnutrition Assessment: Malnutrition Status: No malnutrition Nutrition Related Findings: no malnutrition indices Current Nutrition Therapies: Diet NPO Anthropometric Measures: Height: 6' (182.9 cm) Current Body Wt: 231 lb 12.8 oz (105.1 kg) BMI: 31.4 Nutrition Diagnosis: Food & Nutrition-related knowledge deficit related to cardiac dysfunction as evidenced by other(comment) (interview) Lab Results Component Value Date NA 137 05/27/2021 K 3.7 05/27/2021 CL 101 05/27/2021 CO2 26 05/27/2021 BUN 19 05/27/2021 CREATININE 1.24 (H) 05/27/2021 GLUCOSE 133 (H) 05/27/2021 CALCIUM 10.9 (H) 05/27/2021 PROT 7.1 05/20/2021 LABALBU 4.1 05/20/2021 BILITOT 0.30 05/20/2021 ALKPHOS 73 05/20/2021 AST 16 05/20/2021 ALT 20 05/20/2021 LABGLOM 59 (L) 05/27/2021 GFRAA >60 05/27/2021 No results found for: LABA1C No results found for: EAG No results found for: VITD25 Nutrition Interventions: Food and/or Nutrient Delivery: Start Oral Diet Nutrition Education/Counseling: Education initiated Coordination of Nutrition Care: Continue to monitor while inpatient Goals: PO >75% meals with heart healthy choices Nutrition Monitoring and Evaluation: Behavioral-Environmental Outcomes: None Identified Food/Nutrient Intake Outcomes: Food and Nutrient Intake Physical Signs/Symptoms Outcomes: Biochemical Data,Weight Discharge Planning: No discharge needs at this time Contact: [id number] * JEAN Hutton/Choco - 05/28/2021 12:12 PM EST Occupational Therapy Occupational Therapy Initial Assessment Date: 05/28/2021 Patient Name: Piotr Kerr : 1960 Date of Service: 05/28/2021 Discharge Recommendations: Continue to assess pending progress Assessment Performance deficits / Impairments: Decreased functional mobility ;Decreased ADL status;Decreased strength;Decreased balance;Decreased endurance Assessment: 60 y/o M admitted to [facility] for CAD. Patient presents with generalized weakness, decreasedendurance/activity tolerance, requiring increased need for assist c ADL. OT to address and educate on AE/DME, d/c folder and home safety to ensure safe return home c . Treatment Diagnosis: Weakness Prognosis: Good Decision Making: Medium Complexity OT Education: Plan of Care;OT Role REQUIRES OT FOLLOW UP: Yes Safety Devices Safety Devices in place: Yes Type of devices: Left in chair;Call light within reach Patient Diagnosis(es): There were no encounter diagnoses. 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 has no past surgical history on file. Treatment Diagnosis: Weakness Restrictions Restrictions/Precautions Restrictions/Precautions: General Precautions,Fall Risk Subjective Patient Currently in Pain: Yes Vital Signs Patient Currently in Pain: Yes Social/Functional History Social/Functional History Lives With: Spouse Type of Home: House Home Layout: Two level Home Access: Stairs to enter with rails Bathroom Shower/Tub: Tub/Shower unit Bathroom Toilet: Standard Bathroom Equipment: Shower chair Home Equipment: Cane ADL Assistance: Needs assistance Homemaking Assistance: Needs assistance Ambulation Assistance: Independent Transfer Assistance: Independent Additional Comments: Patient reports that assist c LB self care. Objective Vision: Impaired Vision Exceptions: Wears glasses at all times Hearing: Within functional limits Balance Sitting Balance: Independent Standing Balance: Contact guard assistance Functional Mobility Assist Level: Contact guard assistance ADL Feeding: Setup Grooming: Minimal assistance UE Bathing: Stand by assistance LE Bathing: Minimal assistance UE Dressing: Stand by assistance LE Dressing: Moderate assistance Toileting: Contact guard assistance Transfers Sit to stand: Contact guard assistance Stand to sit: Contact guard assistance LUE AROM (degrees) LUE AROM : WFL Left Hand AROM (degrees) Left Hand AROM: WFL RUE AROM (degrees) RUE AROM : WFL Right Hand AROM (degrees) Right Hand AROM: WFL Plan Plan Times per week: 7 Times per day: Daily Current Treatment Recommendations: Strengthening,ROM,Balance Training,Functional Mobility Training,Endurance Training,Patient/Caregiver Education & Training,Self-Care / ADL,Equipment Evaluation, Education, & procurement,Safety Education & Training AM-PAC Score AM-PAC Inpatient Daily Activity Raw Score: 17 (05/28/211212) AM-PAC Inpatient ADL T-Scale Score : 37.26 (05/28/211212) ADL Inpatient CMS 0-100% Score: 50.11 (05/28/211212) ADL Inpatient CMS G-Code Modifier : CK (05/28/211212) Goals Short term goals Time Frame for Short term goals: 21 visits Short term goal 1: Patient to be educated on d/c folder, AE/DME and home safety to ensure safe return home c . Short term goal 2: Patient to complete toileting, grooming and hygiene c Mod I to ensure safe return home. Short term goal 3: Patient to complete UB bathing/dressing c Mod I and LB bathing/dressing c min A to improve ADL indep. Short term goal 4: Patient to engage in 15 minutes of ther ex/ther act to improve UE/UB strength and act ailin for self care, mobility and transfers. Short term goal 5: Patient to tolerate standing >6' while participating in functional task of choice to improve standing tolerance, balance and safety during ADL. Therapy Time Individual Concurrent Group Co-treatment Time In 1155 Time Out 1205 Minutes 10 Sandy Grant OTR/L * Kelly Amaya PT - 05/28/2021 12:04 PM EST Physical Therapy Facility/Department: [facility] Initial Assessment NAME: Piotr Kerr : 1960 Date of Service: 05/28/2021 Discharge Recommendations: Continue to assess pending progress Assessment Body structures, Functions, Activity limitations: Decreased functional mobility ;Decreased balance;Decreased ADL status;Decreased strength;Decreased high-level IADLs;Decreased safe awareness;Decreased endurance Assessment: Pt is a 60 year old male that was admitted for CAD. Pt presents with general weakness, decreased ambulation tolerance, and reduced dynamic standing balance. Pt will benefit from skilled PT in order to address these deficits. Treatment Diagnosis: general weakness, unsteady gait Specific instructions for Next Treatment: 2x/daily except weekends 1x/daily Prognosis: Good Decision Making: Medium Complexity PT Education: Goals;PT Role;Plan of Care REQUIRES PT FOLLOW UP: Yes Activity Tolerance Activity Tolerance: Patient Tolerated treatment well Patient Diagnosis(es): There were no encounter diagnoses. 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 has no past surgical history on file. Restrictions Restrictions/Precautions Restrictions/Precautions: General Precautions,Fall Risk Vision/Hearing Vision: Impaired Vision Exceptions: Wears glasses at all times Hearing: Within functional limits Subjective General Chart Reviewed: Yes Additional Pertinent Hx: CVA affect L side Response To Previous Treatment: Not applicable Family / Caregiver Present: Yes Referring Practitioner: Dr. Vasquez Referral Date : 05/28/21 Diagnosis: CAD Subjective Subjective: pt reports bilateral leg cramps Pain Screening Patient Currently in Pain: Yes Vital Signs Patient Currently in Pain: Yes Orientation Orientation Overall Orientation Status: Within Normal Limits Social/Functional History Social/Functional History Lives With: Spouse Type of Home: House Home Layout: Two level Home Access: Stairs to enter with rails Bathroom Shower/Tub: Tub/Shower unit Bathroom Toilet: Standard Bathroom Equipment: Shower chair Home Equipment: Cane ADL Assistance: Needs assistance Homemaking Assistance: Needs assistance Ambulation Assistance: Independent Transfer Assistance: Independent Additional Comments: Patient reports that assist c LB self care. Objective AROM RLE (degrees) RLE AROM: WFL AROM LLE (degrees) LLE AROM : WFL Strength RLE Comment: grossly 4-/5 Strength LLE Comment: grossly 3/5 Bed mobility Rolling to Right: Contact guard assistance Supine to Sit: Contact guard assistance Transfers Sit to Stand: Contact guard assistance Stand to sit: Contact guard assistance Ambulation Ambulation?: Yes WB Status: unrestricted Ambulation 1 Surface: level tile Device: Single point cane Distance: 5 steps to chair Balance Posture: Fair Sitting - Static: Good Sitting - Dynamic: Good;- Standing - Static: Fair Standing - Dynamic: Fair;- Plan Plan Times per week: 7x/wk Times per day: Twice a day Specific instructions for Next Treatment: 2x/daily except weekends 1x/daily Current Treatment Recommendations: Strengthening,Neuromuscular Re-education,Home Exercise Program,Manual Therapy - Soft Tissue Mobilization,Safety Education & Training,Balance Training,Endurance Training,Patient/Caregiver Education & Training,Functional Mobility Training,Transfer Training,Gait Training Safety Devices Type of devices: Left in chair,Call light within reach AM-PAC Score AM-PAC Inpatient Mobility without Stair Climbing Raw Score : 15 (05/28/211203) AM-PAC Inpatient without Stair Climbing T-Scale Score : 43.03 (05/28/211203) Mobility Inpatient CMS 0-100% Score: 47.43 (05/28/211203) Mobility Inpatient without Stair CMS G-Code Modifier : CK (05/28/211203) Goals Short term goals Time Frame for Short term goals: 20 days Short term goal 1: Pt will be educated on his POC Short term goal 2: Pt will perform all transfers SBA in order to increase independence Short term goal 3: Pt will ambulate >50 feet with SPC SBA in order to use the bathroom Short term goal 4: Pt will increase dynamic standing balance to Fair + in order to reduce fall risk Patient Goals Patient goals : to feel better and go home Therapy Time Individual Concurrent Group Co-treatment Time In 1117 Time Out 1135 Minutes 18 Kelly Amaya, PT * Balbina Davis RN - 05/28/2021 11:45 AM EST given update on plan of care. Would like options for home care, clinical social work therapist notified. * Hilda Retana - 05/28/2021 10:44 AM EST Echocardiogram/Doppler done at bedside. Instructed on policies and procedure. * ELOINA Dunaway - 05/28/2021 10:20 AM EST Discussed discharge plans with the patient. Patient is a 60 year old male here with Coronary arterydisease involving [place] heart with angina pectoris and documented spasm . He is alert , oriented ,pleasant , and cooperative during our conversation. Patient is and lives at home with his . He has a cane and walker if needed. He does the cooking and the cleaning. He is independent with his ADL's. Patient manages his own medications. The provide the transportation. He has no outside services in the home. His PCP is Dr. Jorge Pritchett DO. He has medical insurance that helps with medication costs. Patient served in the [employer]. The discharge is home with . He may need home health. He does not have advance directives. ADJUNCT PSYCHOLOGY FACULTY MEMBER to monitor and assist with any needs as they arise. Will follow up with the regarding any discharge needs. ELOINA Dunaway * Balbina Davis RN - 05/28/2021 9:10 AM EST Powder Blender called Nathalie RAINES to ask if patient can have liquids or a small breakfast due to being diabetic and unknown when a heart cath will be today. Nathalie cleared with Dr Mars that it is okay to eat breakfast and drink up until heart cath. Blood sugar is 75 this morning. Will give orange juice and order meal tray for breakfast. * Lamont Vasquez MD - 05/28/2021 8:08 AM EST Progress Note Lamont Vasquez MD OBJECTIVE: Patient seen for f/u of Coronary artery disease involving [place] heart with angina pectoris and documented spasm (HCC). He has no chest pain or shortness of breath.troponin 60 ROS: Constitutional: negative for fevers, and negative for chills. Respiratory: negative for shortness of breath, negative for cough, and negative for wheezing Cardiovascular: negative for chest pain, and negative for palpitations Gastrointestinal: negative for abdominal pain, negative for nausea,negative for vomiting, negative for diarrhea, and negative for constipation All other systems were reviewed with the patient and are negative unless otherwise stated in HPI OBJECTIVE: Vitals: Temp: 97.7 F (36.5 C) BP: 129/62 Resp: 18 Pulse: 62 SpO2: 98 % 24HR INTAKE/OUTPUT: Intake/Output Summary (Last 24 hours) at 05/28/2021 0808 Last data filed at 05/28/2021 0541 Gross per 24 hour Intake 520 ml Output 275 ml Net 245 ml Exam: GEN: Awake, alert and oriented x3. EYES: EOMI, pupils equal NECK: Supple. No lymphadenopathy. No carotid bruit CVS: regular rate and rhythm, 2/6 systolic murmur PULM: CTA, no wheezes, rales or rhonchi, no acute respiratory distress ABD: Bowels sounds normal. Abdomen is soft. No distention. no tenderness to palpation. EXT: no edema bilaterally . No calf tenderness. NEURO: Moves all extremities. Motor and sensory are grossly intact SKIN: No rashes. No skin lesions. Diagnostic Data: All available data reviewed Lab Results Component Value Date WBC 5.2 05/27/2021 HGB 12.6 (L) 05/27/2021 MCV 89.5 05/27/2021 PLT 238 05/27/2021 Lab Results Component Value Date GLUCOSE 133 (H) 05/27/2021 BUN 19 05/27/2021 CREATININE 1.24 (H) 05/27/2021 NA 137 05/27/2021 K 3.7 05/27/2021 CALCIUM 10.9 (H) 05/27/2021 CL 101 05/27/2021 CO2 26 05/27/2021 PROBLEM LIST: Principal Problem: Coronary artery disease involving [place] heart with angina pectoris and documented spasm (HCC) Active Problems: Benign essential HTN CHRIS (obstructive sleep apnea) Resolved Problems: * No resolved hospital problems. 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 * troponin trending up Cardiology to decide about cath Nutrition status: Well developed, well nourished with no malnutrition DVT prophylaxis: Lovenox High risk medications: none Disposition: Discharge plan is home Lamont Vasquez MD , M.D. 05/28/2021 8:08 AM * Julissa Dumas RN - 05/27/2021 9:33 PM EST Cardiology consult form faxed and left message with cardiology regarding consult. * Julissa Dumas RN - 05/27/2021 7:57 PM EST Powder Blender spoke with Dr. Vasuqez about patient complaining of muscle spasms in left leg, Dr. Vasquez orderedflexeril 10mg q6h PRN. * Julissa Dumas RN - 05/27/2021 7:45 PM EST Assessment and vitals completed at this time as charted. Patient resting in bed at this time stating he is having lower back pain and a spasm in his left leg that comes and goes. Patient denies any chest pain/SOB at this time. Call light remains within reach. * Mel Booker RN - 05/27/2021 1:46 PM EST Patient arrived to floor as direct admit at this time. Spouse assisting with gown and non-skid socks application. Patient able to stand pivot to bed. No acute distress noted. Call light given. [facility] Phone: [phone]) 306-976501-08-2022 Hospital course Narrative* Cassie Morejon, BOILER HOUSE MECHANIC - COLOR TECHNICIAN - 06/01/2021 8:43 AM EST Images from the original note were not included. 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 * Hospital Course: Piotr Kerr is a 60 y.o. male admitted with CAD with angina. He presented for complaints of shortness of breath on exertion and chest pain. Patient completed a stress test 1 monthago and was abnormal. Patient was seen by Dr. Kan for evaluation and was admitted for cardiac cath. During patient's evaluation he was found to have severe CAD and was recommended for transfer for tertiary care cardiology treatment for stent placement. Patient was placed on transfer list and accepted. However due to critical bed shortage patient is unable to be transferred at this time after awaiting 2 days for transfer. Patient is symptom free. Patient will be discharged home todayhe will follow-up with on June 03 for an outpatient cath. This was cleared through cardiology and patient was agreeable to this plan of care. Medications have been optimized and symptoms controlled. Patient was also started on Flexeril for spasm of his leg which was causing himsevere discomfort. The muscle relaxer has not proved his pain significantly. He will also continue this on discharge as well. Patient was also found to have urinary retention with over 1000 mL in hisbladder. Diaz catheter was placed. Patient will continue on Flomax. He will be discharged home with Diaz catheter and will follow up with urology as an outpatient. No change from initial discharge Consultants: Dr. Kan, cardiology Procedures: heart cath: Severe three vessel coronary artery disease involving a 90% proximal RCA stenosis, a 70% distal RCA stenosis, a 100% probably chronic total occlusion of a OM1 that has a long stent in the proximal vessel mid 90% stenosis in the left anterior descending coronary artery. Normal left ventricular end diastolic pressure. Consult to interventional cardiology for consideration ofangioplasty and/or stenting of the patients severe stenosis Complications: none Discharge Condition: fair Exam: GEN: alert and oriented to person, place and time, well-developed and well- nourished, in no acute distress EYES: No gross abnormalities., PERRL and EOMI NECK: normal, supple, no lymphadenopathy, no carotid bruits PULM: rales present-bilateral bases COR: regular rate & rhythm, no gallops, S1 normal and S2 normal, systolic murmur ABD: soft, non-tender, non-distended, normal bowel sounds, no masses or organomegaly EXT: no cyanosis, clubbing or edema present NEURO: follows commands, VAN, no deficits SKIN: no rashes or significant lesions Significant Diagnostic Studies: Lab Results Component Value Date WBC 3.6 06/01/2021 HGB 12.1 (L) 06/01/2021 PLT 178 06/01/2021 Lab Results Component Value Date BUN 18 06/01/2021 CREATININE 1.16 06/01/2021 NA 134 (L) 06/01/2021 K 3.6 (L) 06/01/2021 CALCIUM 8.8 06/01/2021 CL 101 06/01/2021 CO2 24 06/01/2021 LABGLOM >60 06/01/2021 Lab Results Component Value Date WBCUA 0 TO 2 07/25/2020 RBCUA None 07/25/2020 EPITHUA 0 TO 2 07/25/2020 LEUKOCYTESUR NEGATIVE 07/25/2020 SPECGRAV 1.025 (H) 07/25/2020 GLUCOSEU NEGATIVE 07/25/2020 KETUA NEGATIVE 07/25/2020 PROTEINU 1+ (A) 07/25/2020 HGBUR NEGATIVE 07/25/2020 CASTUA NOT REPORTED 07/25/2020 CASTUA NOT REPORTED 07/25/2020 CRYSTUA NOT REPORTED 07/25/2020 BACTERIA TRACE (A) 07/25/2020 YEAST NOT REPORTED 07/25/2020 Echocardiogram complete 2D with doppler with color Result Date: 05/28/2021 [facility] Transthoracic Echocardiography Report (TTE) Patient Name LAURA Date of Study 05/28/2021 PIOTR A Date of 1960 Gender Male Age 60 year(s) Race Room Number 0333 Height: 72 inch, 182.88 cm Corporate ID [id number] Weight: 231 pounds, 104.8 kg # Patient Acct [id number] BSA: 2.26 m^2 BMI: 31.33 # kg/m^2 MR # [id number] [employer] Hilda Arango Interpreting Physician Alma Kan Fellow Referring Nurse Cassie Morejon, COLOR TECHNICIAN Practitioner Interpreting Referring Physician Fellow Type of Study TTE procedure:2D Echocardiogram, M-Mode, Doppler, ColorDoppler. Procedure Date Date: 05/28/2021 Start: 10:54 AM Study Location: [facility] Indic ations:Hypertension. History / Tech. Comments: Dx: Hypotension, Hypertension Hx: HTN, stent, DM, CVA Patient Status: Inpatient Height: 72 inches Weight: 231 pounds BSA: 2.26 m^2 BMI: 31.33 kg/m^2 BP:129/62 mmHg CONCLUSIONS Summary Global left ventricular systolic function appears preserved with anestimated ejection fraction of 50-55%. Definity contrast was used for better visualization of the apex. The left ventricular cavity size is within normal limits and the left ventricular wall thickness is mildly increased. Mild thinning and hypokinesis of the apex noted. No evidence of apical thrombi. The left atrium is mildly dilated (29-33) with a left atrial volume index of 32 ml/m2. No significant valvular abnormalities. Evidence of mild (grade I) diastolic dysfunction is seen. No prior studies were available for comparison. Signature ---- FINDINGS Left Atrium The left atrium is mildly dilated (29-33) with a left atrial volume index of 32 ml/m2. Left Ventricle Global left ventricular systolic function appears preserved with anestimated ejection fraction of 50-55%. Definity contrast was used for better visualization of the apex. The left ventricular cavity size is within normal limits and the left ventricular wall thickness is mildly increased. Mild thinning and hypokinesis of the apex noted. No evidence of apical thrombi. Right Atrium Right atrium is normal in size. Right Ventricle Normal right ventricular size and function. Mitral Valve Thickened mitral valve leaflets. Mitral annular calcification is seen. Aortic Va lve Aortic valve sclerosis without stenosis. No aortic insufficiency. Tricuspid Valve Normal tricuspid valve structure and function. Pulmonic Valve The pulmonic valve is normal in structure. Pericardial Effusion No significant pericardial effusion is seen. Miscellaneous Evidence of mild (grade I) diastolic dysfunction is seen. M-mode / 2D Measurements & Calculations: LVIDd:5.01 cm(3.7 - 5.6 cm) Diastolic Volume:103.9875 ml LVIDs:3.64 cm(2.2 - 4.0 cm) Systolic Volume:48 ml IVSd:1.33 cm(0.6 -1.1 cm) Aortic Root:3.42 cm(2.0 - 3.7 cm) LVPWd:1.35 cm(0.6 - 1.1 cm) LA Dimension: 4.91 cm(1.9 - 4.0 cm) Fractional Shortenin.35 % LA volume/Index: 72 ml /32m^2 Calculated LVEF (%): 53.84 % AV Cusp Separation: 2.08 cm LVOT:2.24 cm RVDd:4.09 cm Mitral: Aortic Valve Area (P1/2-Time): 3.1 cm^2 Peak Velocity: 1.43 m/s Peak E-Wave: 0.73 m/s Mean Velocity: 1.07 m/s Peak A- Wave: 0.90 m/s Peak Gradient: 8.23 mmHg E/A Ratio: 0.81 Mean Gradient: 4.93 mmHg Peak Gradient: 2.12 mmHg Acceleration Time: 66.3 msec P1/2t: 70.98 msec Area (continuity): 3.45 cm^2 AV VTI: 30.06 cm Lateral Wall E' velocity:0.08 m/s XR CHEST (2 VW) Result Date: 05/27/2021 EXAMINATION: TWO XRAY VIEWS OF THE CHEST 05/27/2021 4:53 pm COMPARISON: 05/20/2021 HISTORY: ORDERING SYSTEM PROVIDED HISTORY: htn TECHNOLOGIST PROVIDED HISTORY: htn FINDINGS: The cardiomediastinal silhouette is normal in size and contour. The lungs are clear. No pleural effusion or pneumothorax is present. No acute cardiopulmonary process Assessment and Plan: Patient Active Problem List Diagnosis Date Noted NSTEMI (non-ST elevated myocardial infarction) ([facility]) Hypoxia 05/30/2021 Abnormal stress test S/P angioplasty with stent Dyslipidemia History of stroke Benign essential HTN 05/27/2021 Coronary artery disease involving [place] heart with angina pectoris and documented spasm ([facility]) 05/27/2021 CHRIS (obstructive sleep apnea) 05/27/2021 Uncontrolled type 2 diabetes mellitus with hyperglycemia ([facility]) 07/29/2020 BPH with obstruction/lower urinary tract symptoms 07/25/2020 Incomplete emptying of bladder 07/25/2020 Discharge Medications: Medication List START taking these medications carvedilol 3.125 MG tablet Commonly known as: COREG Take 1 tablet by mouth 2 times daily (with meals) cyclobenzaprine 10 MG tablet Commonly known as: FLEXERIL Take 1 tablet by mouth 3 times daily as needed for Muscle spasms isosorbide mononitrate 30 MG extended release tablet Commonly known as: IMDUR Take 1 tablet by mouth daily nitroGLYCERIN 0.4 MG SL tablet Commonly known as: NITROSTAT up to max of 3 total doses. If no relief after 1 dose, call 911. CHANGE how you take these medications furosemide 40 MG tablet Commonly known as: LASIX Take 1 tablet by mouth daily What changed: medication strength when to take this CONTINUE taking these medications amLODIPine 5 MG tablet Commonly known as: NORVASC aspirin 81 MG EC tablet HumaLOG KwikPen 100 UNIT/ML Sopn Generic drug: insulin lispro (1 Unit Dial) insulin glargine 100 UNIT/ML injection vial Commonly known as: LANTUS losartan 25 MG tablet Commonly known as: COZAAR NONFORMULARY Pennsaid 2 % Soln Generic drug: Diclofenac Sodium pravastatin 10 MG tablet Commonly known as: PRAVACHOL tamsulosin 0.4 MG capsule Commonly known as: FLOMAX Take 1 capsule by mouth every evening * B-D UF III MINI PEN NEEDLES 31G X 5 MM Misc Generic drug: Insulin Pen Needle * TechLite Pen [place] 31G X 8 MM Misc Generic drug: Insulin Pen Needle Vitamin D3 1.25 MG (15393 UT) Caps * This list has 2 medication(s) that are the same as other medications prescribed for you. Read thedirections carefully, and ask your doctor or other care provider to review them with you. Where to Get Your Medications These medications were sent to [facility]/pharmacy #[id number] - [place], [place] - [address] - [phone] - F [phone] [address] [id number] carvedilol 3.125 MG tablet cyclobenzaprine 10 MG tablet furosemide 40 MG tablet isosorbide mononitrate 30 MG extended release tablet nitroGLYCERIN 0.4 MG SL tablet Patient Instructions: Activity: activity as tolerated Diet: cardiac diet Wound Care: none needed Other: Cardiac Cath Thursday06/03/2021 Disposition: Discharge to Home Follow up: Patient will be followed by Jorge Pritchett DO in 1-2 weeks CORE MEASURES on Discharge (if applicable) KIRIT/ARB in CHF: NA Statin in PA: NA ASA in PA: NA Statin in CVA: NA Antiplatelet in CVA: NA Total time spent on discharge services: 40 minutes Including the following activities: Evaluation and Management of patient Discussion with patient and/or surrogate about current care plan Coordination with Case Management and/or Mining Helper Coordination of care with Consultants (if applicable) Coordination of care with Receiving Facility Physician (if applicable) Completion of DME forms (if applicable) Preparation of Discharge Summary Preparation of Medication Reconciliation Preparation of Discharge Prescriptions Signed: Cassie Morejon APRN - COLOR TECHNICIAN, TYRESE, COMMUNITY DEVELOPMENT TECHNICIAN-C 06/01/2021, 8:44 AM Associated attestation - Lamont Vasquez MD - 06/01/2021 12:37 PM EST Images from the original note were not included. I personally evaluated and examined the patient face to face in conjunction with the APC and agree with the management and disposition of the patient. My tellez findings are: Patient ID: Piotr Kerr [id number] Admission date: 05/27/2021 Discharge date: 06/01/2021 Admitting Physician: Lamont Vasquez MD Primary Care Physician: Jorge Pritchett DO Primary Discharge Diagnoses: Patient Active Problem List Diagnosis Date Noted NSTEMI (non-ST elevated myocardial infarction) ([facility]) Hypoxia 05/30/2021 Abnormal stress test S/P angioplasty with stent Dyslipidemia History of stroke Benign essential HTN 05/27/2021 Coronary artery disease involving [place] heart with angina pectoris and documented spasm ([facility]) 05/27/2021 CHRIS (obstructive sleep apnea) 05/27/2021 Uncontrolled type 2 diabetes mellitus with hyperglycemia ([facility]) 07/29/2020 BPH with obstruction/lower urinary tract symptoms 07/25/2020 Incomplete emptying of bladder 07/25/2020 Additional Diagnoses: Diagnosis Date Cerebrovascular accident (CVA) ([facility]) Chronic pain Essential hypertension H/O heart artery stent 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 ([facility]) Type 2 diabetes mellitus without complication (HCC) Review of Systems: Constitutional: negative for fevers or chills Eyes: negative for visual disturbance ENT: negative for sore throat or nasal congestion Respiratory: negative for shortness of breath or cough at rest Cardiovascular: negative for chest pain ,palpitations,pnd,syncope Gastrointestinal: negative for abd pain, nausea, vomiting, diarrhea , constipation,hemetemesis,edwige,blood in stool Genitourinary:Has diaz for retention Integument/breast: negative for skin rash or lesions Neurological: negative for unilateral weakness, numbness or tingling. Skeletal Muscular: no joint pain,jont swelling,back pain Physical exam: Exam: GEN: A & O x3, no apparent distress EYES: No gross abnormalities. NECK: normal, supple, no lymphadenopathy, no carotid bruits PULM: decreased breath sounds noted- bilat COR: regular rate & rhythm and no gallops ABD: soft, non-tender, non-distended, normal bowel sounds, no masses or organomegaly EXT: no cyanosis, clubbing or edema present - has diaz NEURO: negative SKIN: no rashes or significant lesions Hospital Course: The patient was admitted for the above. Piotr Kerr is a 60 y.o. male admitted with CAD with angina. He presented for complaints of shortness of breath on exertion and chest pain.Patient completed a stress test 1 month ago and was abnormal. Patient was seen by Dr. Kan for evaluation and was admitted for cardiac cath. During patient's evaluation he was found to have severe CAD and was recommended for transfer for tertiary care cardiology treatment for stent placement. Patient was placed on transfer list and accepted. However due to critical bed shortage patientis unable to be transferred at this time after awaiting 2 days for transfer. Patient is symptom free. Patient will be discharged home today he will follow-up with on June 03 for an outpatient cath. This was cleared through cardiology and patient was agreeable to this plan of care. Medications have been optimized and symptoms controlled. Patient was also started on Flexeril for spasm of his leg which was causing him severe discomfort. The muscle relaxer has not proved his pain significantly. He will also continue this on discharge as well. Patient was also found to have urinary retention with over 1000 mL in his bladder. Diaz catheter was placed. Patient will continue on Flomax. He will be discharged home with Diaz catheter and will follow up with urology as an outpat ient. Consultants: cardiology Procedures: Lrt heart cath Complications: none Significant Diagnostic Studies: Echocardiogram complete 2D with doppler with color Result Date: 05/28/2021 [facility] Transthoracic Echocardiography Report (TTE) Patient Name LAURA Date of Study 05/28/2021 PIOTR A Date of 1960 Gender Male Age 60 year(s) Race Room Number 0333 Height: 72 inch, 182.88 cm Corporate ID [id number] Weight: 231 pounds, 104.8 kg # Patient Acct [id number] BSA: 2.26 m^2 BMI: 31.33 # kg/m^2 MR # [id number] [employer] Hilda Arango Interpreting Physician Alma Kan Fellow Referring Nurse Cassie Morejon, COLOR TECHNICIAN Practitioner Interpreting Referring Physician Fellow Type of Study TTE procedure:2D Echocardiogram, M-Mode, Doppler, ColorDoppler. Procedure Date Date: 05/28/2021 Start: 10:54 AM Study Location: [facility] Indic ations:Hypertension. History / Tech. Comments: Dx: Hypotension, Hypertension Hx: HTN, stent, DM, CVA Patient Status: Inpatient Height: 72 inches Weight: 231 pounds BSA: 2.26 m^2 BMI: 31.33 kg/m^2 BP:129/62 mmHg CONCLUSIONS Summary Global left ventricular systolic function appears preserved with anestimated ejection fraction of 50-55%. Definity contrast was used for better visualization of the apex. The left ventricular cavity size is within normal limits and the left ventricular wall thickness is mildly increased. Mild thinning and hypokinesis of the apex noted. No evidence of apical thrombi. The left atrium is mildly dilated (29-33) with a left atrial volume index of 32 ml/m2. No significant valvular abnormalities. Evidence of mild (grade I) diastolic dysfunction is seen. No prior studies were available for comparison. Signature ---- FINDINGS Left Atrium The left atrium is mildly dilated (29-33) with a left atrial volume index of 32 ml/m2. Left Ventricle Global left ventricular systolic function appears preserved with anestimated ejection fraction of 50-55%. Definity contrast was used for better visualization of the apex. The left ventricular cavity size is within normal limits and the left ventricular wall thickness is mildly increased. Mild thinning and hypokinesis of the apex noted. No evidence of apical thrombi. Right Atrium Right atrium is normal in size. Right Ventricle Normal right ventricular size and function. Mitral Valve Thickened mitral valve leaflets. Mitral annular calcification is seen. Aortic Va lve Aortic valve sclerosis without stenosis. No aortic insufficiency. Tricuspid Valve Normal tricuspid valve structure and function. Pulmonic Valve The pulmonic valve is normal in structure. Pericardial Effusion No significant pericardial effusion is seen. Miscellaneous Evidence of mild (grade I) diastolic dysfunction is seen. M-mode / 2D Measurements & Calculations: LVIDd:5.01 cm(3.7 - 5.6 cm) Diastolic Volume:103.9875 ml LVIDs:3.64 cm(2.2 - 4.0 cm) Systolic Volume:48 ml IVSd:1.33 cm(0.6 -1.1 cm) Aortic Root:3.42 cm(2.0 - 3.7 cm) LVPWd:1.35 cm(0.6 - 1.1 cm) LA Dimension: 4.91 cm(1.9 - 4.0 cm) Fractional Shortenin.35 % LA volume/Index: 72 ml /32m^2 Calculated LVEF (%): 53.84 % AV Cusp Separation: 2.08 cm LVOT:2.24 cm RVDd:4.09 cm Mitral: Aortic Valve Area (P1/2-Time): 3.1 cm^2 Peak Velocity: 1.43 m/s Peak E-Wave: 0.73 m/s Mean Velocity: 1.07 m/s Peak A- Wave: 0.90 m/s Peak Gradient: 8.23 mmHg E/A Ratio: 0.81 Mean Gradient: 4.93 mmHg Peak Gradient: 2.12 mmHg Acceleration Time: 66.3 msec P1/2t: 70.98 msec Area (continuity): 3.45 cm^2 AV VTI: 30.06 cm Lateral Wall E' velocity:0.08 m/s XR CHEST (2 VW) Result Date: 05/27/2021 EXAMINATION: TWO XRAY VIEWS OF THE CHEST 05/27/2021 4:53 pm COMPARISON: 05/20/2021 HISTORY: ORDERING SYSTEM PROVIDED HISTORY: htn TECHNOLOGIST PROVIDED HISTORY: htn FINDINGS: The cardiomediastinal silhouette is normal in size and contour. The lungs are clear. No pleural effusion or pneumothorax is present. No acute cardiopulmonary process US RENAL COMPLETE Result Date: 05/29/2021 EXAMINATION: RETROPERITONEAL ULTRASOUND OF THE KIDNEYS AND URINARY BLADDER 05/29/2021 COMPARISON: None HISTORY: ORDERING SYSTEM PROVIDED HISTORY: CKD stage IIIa TECHNOLOGIST PROVIDED HISTORY: CKD stageIIIa 60-year-old male with chronic kidney disease, stage III A FINDINGS: Kidneys: Exam limited due to patient immobility. Right kidney measures 11.2 x 6.1 x 5.3 cm. Right renal cortical thickness measures 1.6 cm. Left kidney measures 11.3 x 6.4 x 6.3 cm. Left renal cortical thickness measures 1.7 cm. Gross preservation of the bilateral corticomedullary differentiation. Color flow projects over the bilateral renal parenchyma. No echogenic foci with posterior acoustic shadowing to suggest renal calculi. Bladder: Urinary bladder measures 14.8 x 8.2 by 10.9 cm for a bladder volume of 928 mL. Urinary bladder wall thickness measures 5 mm. Bilateral ureteral jets are visualized. Urinary bladder grossly unremarkable in appearance. Postvoid urinary bladder volume could not be obtained due to patient immobility. 1. Bilateral ureteral jets are visualized. Urinary bladder grossly unremarkable. 2. Unremarkable renal ultrasound. No hydronephrosis. RECOMMENDATIONS: Unavailable XR CHEST PORTABLE Result Date: 05/20/2021 EXAMINATION: ONE XRAY VIEW OF THE CHEST 05/20/2021 11:54 am COMPARISON: None. HISTORY: ORDERING SYSTEM PROVIDED HISTORY: dyspnea TECHNOLOGIST PROVIDED HISTORY: dyspnea FINDINGS: The heart is not enlarged. No pulmonary venous congestion or edema. No convincing lung consolidation or infiltrate. No pleural effusion or pneumothorax. Osseous structures grossly intact. No acute cardiopulmonary process XR HIP 2-3 VW W PELVIS LEFT Result Date: 05/30/2021 EXAMINATION: ONE X-RAY VIEW OF THE PELVIS AND TWO X-RAY VIEWS LEFT HIP 05/30/2021 11:19 am COMPARISON: None. HISTORY: ORDERING SYSTEM PROVIDED HISTORY: left hip pain TECHNOLOGIST PROVIDED HISTORY: lefthip pain FINDINGS: Pelvic bones are intact. There is no evidence of acute fracture or dislocation at the hips. There is mild joint space narrowing and spurring at both hips. No evidence of articular surface collapse. Degenerative changes are noted in the lower lumbar spine. No acute osseous abnormality in the pelvis or left hip. Mild degenerative changes. Recent Results (from the past 96 hour(s)) Basic Metabolic Panel Collection Time: 05/28/21 2:15 PM Result Value Ref Range Glucose 97 70 - 99 mg/dL BUN 21 8 - 23 mg/dL CREATININE 1.40 (H) 0.70 - 1.20 mg/dL Bun/Cre Ratio 15 9 - 20 Calcium 10.7 (H) 8.6 - 10.4 mg/dL Sodium 137 135 - 144 mmol/L Potassium 3.6 (L) 3.7 - 5.3 mmol/L Chloride 101 98 - 107 mmol/L CO2 25 20 - 31 mmol/L Anion Gap 11 9 - 17 mmol/L GFR Non- 52 (L) >60 mL/min GFR >60 >60 mL/min GFR Comment GFR Staging CBC Collection Time: 05/28/21 2:15 PM Result Value Ref Range WBC 3.8 3.5 - 11.3 k/uL RBC 4.37 4.21 - 5.77 m/uL Hemoglobin 13.2 13.0 - 17.0 g/dL Hematocrit 38.7 (L) 40.7 - 50.3 % MCV 88.6 82.6 - 102.9 fL MCH 30.2 25.2 - 33.5 pg MCHC 34.1 28.4 - 34.8 g/dL RDW 11.8 11.8 - 14.4 % Platelets 220 138 - 453 k/uL MPV 10.2 8.1 - 13.5 fL NRBC Automated 0.0 0.0 per 100 WBC Glucose, Whole Blood Collection Time: 05/28/21 4:02 PM Result Value Ref Range POC Glucose 76 74 - 100 mg/dL Glucose, Whole Blood Collection Time: 05/28/21 8:45 PM Result Value Ref Range POC Glucose 147 (H) 74 - 100 mg/dL Basic Metabolic Panel Collection Time: 05/29/21 6:00 AM Result Value Ref Range Glucose 98 70 - 99 mg/dL BUN 20 8 - 23 mg/dL CREATININE 1.54 (H) 0.70 - 1.20 mg/dL Bun/Cre Ratio 13 9 - 20 Calcium 9.7 8.6 - 10.4 mg/dL Sodium 139 135 - 144 mmol/L Potassium 3.2 (L) 3.7 - 5.3 mmol/L Chloride 102 98 - 107 mmol/L CO2 23 20 - 31 mmol/L Anion Gap 14 9 - 17 mmol/L GFR Non- 46 (L) >60 mL/min GFR 56 (L) >60 mL/min GFR Comment GFR Staging CBC Collection Time: 05/29/21 6:00 AM Result Value Ref Range WBC 4.4 3.5 - 11.3 k/uL RBC 4.42 4.21 - 5.77 m/uL Hemoglobin 13.1 13.0 - 17.0 g/dL Hematocrit 39.5 (L) 40.7 - 50.3 % MCV 89.4 82.6 - 102.9 fL MCH 29.6 25.2 - 33.5 pg MCHC 33.2 28.4 - 34.8 g/dL RDW 11.8 11.8 - 14.4 % Platelets 198 138 - 453 k/uL MPV 10.5 8.1 - 13.5 fL NRBC Automated 0.0 0.0 per 100 WBC Troponin Collection Time: 05/29/21 6:00 AM Result Value Ref Range Troponin, High Sensitivity 58 (HH) 0 - 22 ng/L Troponin T NOT REPORTED <0.03 ng/mL Troponin Interp NOT REPORTED Lipid Panel Collection Time: 05/29/21 6:00 AM Result Value Ref Range Cholesterol 109 <200 mg/dL HDL 19 (L) >40 mg/dL LDL Cholesterol 67 0 - 130 mg/dL Chol/HDL Ratio 5.7 (H) <5 Triglycerides 117 <150 mg/dL VLDL NOT REPORTED 1 - 30 mg/dL Glucose, Whole Blood Collection Time: 05/29/21 7:01 AM Result Value Ref Range POC Glucose 94 74 - 100 mg/dL Glucose, Whole Blood Collection Time: 05/29/21 11:04 AM Result Value Ref Range POC Glucose 97 74 - 100 mg/dL Basic Metabolic Panel Collection Time: 05/30/21 5:47 AM Result Value Ref Range Glucose 114 (H) 70 - 99 mg/dL BUN 24 (H) 8 - 23 mg/dL CREATININE 1.61 (H) 0.70 - 1.20 mg/dL Bun/Cre Ratio 15 9 - 20 Calcium 8.8 8.6 - 10.4 mg/dL Sodium 135 135 - 144 mmol/L Potassium 3.5 (L) 3.7 - 5.3 mmol/L Chloride 101 98 - 107 mmol/L CO2 23 20 - 31 mmol/L Anion Gap 11 9 - 17 mmol/L GFR Non- 44 (L) >60 mL/min GFR 53 (L) >60 mL/min GFR Comment GFR Staging CBC Collection Time: 05/30/21 5:47 AM Result Value Ref Range WBC 3.5 3.5 - 11.3 k/uL RBC 3.93 (L) 4.21 - 5.77 m/uL Hemoglobin 11.6 (L) 13.0 - 17.0 g/dL Hematocrit 35.4 (L) 40.7 - 50.3 % MCV 90.1 82.6 - 102.9 fL MCH 29.5 25.2 - 33.5 pg MCHC 32.8 28.4 - 34.8 g/dL RDW 11.8 11.8 - 14.4 % Platelets 208 138 - 453 k/uL MPV 10.7 8.1 - 13.5 fL NRBC Automated 0.0 0.0 per 100 WBC Troponin Collection Time: 05/30/21 11:15 AM Result Value Ref Range Troponin, High Sensitivity 54 (HH) 0 - 22 ng/L Troponin T NOT REPORTED <0.03 ng/mL Troponin Interp NOT REPORTED Basic Metabolic Panel Collection Time: 05/31/21 6:15 AM Result Value Ref Range Glucose 140 (H) 70 - 99 mg/dL BUN 21 8 - 23 mg/dL CREATININE 1.59 (H) 0.70 - 1.20 mg/dL Bun/Cre Ratio 13 9 - 20 Calcium 8.7 8.6 - 10.4 mg/dL Sodium 141 135 - 144 mmol/L Potassium 3.9 3.7 - 5.3 mmol/L Chloride 105 98 - 107 mmol/L CO2 24 20 - 31 mmol/L Anion Gap 12 9 - 17 mmol/L GFR Non- 44 (L) >60 mL/min GFR 54 (L) >60 mL/min GFR Comment GFR Staging CBC Collection Time: 05/31/21 6:15 AM Result Value Ref Range WBC 4.1 3.5 - 11.3 k/uL RBC 3.96 (L) 4.21 - 5.77 m/uL Hemoglobin 12.0 (L) 13.0 - 17.0 g/dL Hematocrit 35.9 (L) 40.7 - 50.3 % MCV 90.7 82.6 - 102.9 fL MCH 30.3 25.2 - 33.5 pg MCHC 33.4 28.4 - 34.8 g/dL RDW 11.7 (L) 11.8 - 14.4 % Platelets 188 138 - 453 k/uL MPV 10.6 8.1 - 13.5 fL NRBC Automated 0.0 0.0 per 100 WBC Basic Metabolic Panel Collection Time: 06/01/21 6:00 AM Result Value Ref Range Glucose 168 (H) 70 - 99 mg/dL BUN 18 8 - 23 mg/dL CREATININE 1.16 0.70 - 1.20 mg/dL Bun/Cre Ratio 16 9 - 20 Calcium 8.8 8.6 - 10.4 mg/dL Sodium 134 (L) 135 - 144 mmol/L Potassium 3.6 (L) 3.7 - 5.3 mmol/L Chloride 101 98 - 107 mmol/L CO2 24 20 - 31 mmol/L Anion Gap 9 9 - 17 mmol/L GFR Non- >60 >60 mL/min GFR >60 >60 mL/min GFR Comment GFR Staging CBC Collection Time: 06/01/21 6:00 AM Result Value Ref Range WBC 3.6 3.5 - 11.3 k/uL RBC 4.03 (L) 4.21 - 5.77 m/uL Hemoglobin 12.1 (L) 13.0 - 17.0 g/dL Hematocrit 35.9 (L) 40.7 - 50.3 % MCV 89.1 82.6 - 102.9 fL MCH 30.0 25.2 - 33.5 pg MCHC 33.7 28.4 - 34.8 g/dL RDW 11.5 (L) 11.8 - 14.4 % Platelets 178 138 - 453 k/uL MPV 10.4 8.1 - 13.5 fL NRBC Automated 0.0 0.0 per 100 WBC Discharge Condition: stable Disposition: home Discharge Medications: Medication List START taking these medications carvedilol 3.125 MG tablet Commonly known as: COREG Take 1 tablet by mouth 2 times daily (with meals) cyclobenzaprine 10 MG tablet Commonly known as: FLEXERIL Take 1 tablet by mouth 3 times daily as needed for Muscle spasms isosorbide mononitrate 30 MG extended release tablet Commonly known as: IMDUR Take 1 tablet by mouth daily nitroGLYCERIN 0.4 MG SL tablet Commonly known as: NITROSTAT up to max of 3 total doses. If no relief after 1 dose, call 911. CHANGE how you take these medications furosemide 40 MG tablet Commonly known as: LASIX Take 1 tablet by mouth daily What changed: medication strength when to take this CONTINUE taking these medications amLODIPine 5 MG tablet Commonly known as: NORVASC aspirin 81 MG EC tablet HumaLOG KwikPen 100 UNIT/ML Sopn Generic drug: insulin lispro (1 Unit Dial) insulin glargine 100 UNIT/ML injection vial Commonly known as: LANTUS losartan 25 MG tablet Commonly known as: COZAAR NONFORMULARY Pennsaid 2 % Soln Generic drug: Diclofenac Sodium pravastatin 10 MG tablet Commonly known as: PRAVACHOL tamsulosin 0.4 MG capsule Commonly known as: FLOMAX Take 1 capsule by mouth every evening * B-D UF III MINI PEN NEEDLES 31G X 5 MM Misc Generic drug: Insulin Pen Needle * TechLite Pen [place] 31G X 8 MM Misc Generic drug: Insulin Pen Needle Vitamin D3 1.25 MG (11850 UT) Caps * This list has 2 medication(s) that are the same as other medications prescribed for you. Read thedirections carefully, and ask your doctor or other care provider to review them with you. Where to Get Your Medications These medications were sent to [facility]/pharmacy #[id number] - [address] - [phone] - F [phone] [place] [id number] carvedilol 3.125 MG tablet cyclobenzaprine 10 MG tablet furosemide 40 MG tablet isosorbide mononitrate 30 MG extended release tablet nitroGLYCERIN 0.4 MG SL tablet Resume all home medications unless otherwise directed [facility] f/u as out pt Stop taking Patient Instructions: Activity: activity as tolerated Diet: cardiac diet Wound Care: none needed Other: Follow up with PCP in 1 wk and cardiology on Thursday as directed Time Spent on discharge services is 40 minutes in the examination, evaluation, counseling and review of medications and discharge plan. Signed: Lamont Vasquez MD, M.D. 06/01/2021 12:32 PM I reviewed and agree with the findings and plan documented in her note . Lamont Vasquez MD MD * Cassie Morejon, BOILER HOUSE MECHANIC - COLOR TECHNICIAN - 05/31/2021 1:47 PM EST Images from the original note were not included. 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 * Hospital Course: Piotr Kerr is a 60 y.o. male admitted with CAD with angina. He presented for complaints of shortness of breath on exertion and chest pain. Patient completed a stress test 1 monthago and was abnormal. Patient was seen by Dr. Kan for evaluation and was admitted for cardiac cath. During patient's evaluation he was found to have severe CAD and was recommended for transfer for tertiary care cardiology treatment for stent placement. Patient was placed on transfer list and accepted. However due to critical bed shortage patient is unable to be transferred at this time after awaiting 2 days for transfer. Patient is symptom free. Patient will be discharged home todayhe will follow-up with on June 03 for an outpatient cath. This was cleared through cardiology and patient was agreeable to this plan of care. Medications have been optimized and symptoms controlled. Patient was also started on Flexeril for spasm of his leg which was causing himsevere discomfort. The muscle relaxer has not proved his pain significantly. He will also continue this on discharge as well. Patient was also found to have urinary retention with over 1000 mL in hisbladder. Diaz catheter was placed. Patient will continue on Flomax. He will be discharged home with Daiz catheter and will follow up with urology as an outpatient. Consultants: Dr. Kan, cardiology Procedures: heart cath: Severe three vessel coronary artery disease involving a 90% proximal RCA stenosis, a 70% distal RCA stenosis, a 100% probably chronic total occlusion of a OM1 that has a long stent in the proximal vessel mid 90% stenosis in the left anterior descending coronary artery. Normal left ventricular end diastolic pressure. Consult to interventional cardiology for consideration ofangioplasty and/or stenting of the patients severe stenosis Complications: none Discharge Condition: fair Exam: GEN: alert and oriented to person, place and time, well-developed and well- nourished, in no acute distress EYES: No gross abnormalities., PERRL and EOMI NECK: normal, supple, no lymphadenopathy, no carotid bruits PULM: rales present-bilateral bases COR: regular rate & rhythm, no gallops, S1 normal and S2 normal, systolic murmur ABD: soft, non-tender, non-distended, normal bowel sounds, no masses or organomegaly EXT: no cyanosis, clubbing or edema present NEURO: follows commands, VAN, no deficits SKIN: no rashes or significant lesions Significant Diagnostic Studies: Lab Results Component Value Date WBC 4.1 05/31/2021 HGB 12.0 (L) 05/31/2021 PLT 188 05/31/2021 Lab Results Component Value Date BUN 21 05/31/2021 CREATININE 1.59 (H) 05/31/2021 NA 141 05/31/2021 K 3.9 05/31/2021 CALCIUM 8.7 05/31/2021 CL 105 05/31/2021 CO2 24 05/31/2021 LABGLOM 44 (L) 05/31/2021 Lab Results Component Value Date WBCUA 0 TO 2 07/25/2020 RBCUA None 07/25/2020 EPITHUA 0 TO 2 07/25/2020 LEUKOCYTESUR NEGATIVE 07/25/2020 SPECGRAV 1.025 (H) 07/25/2020 GLUCOSEU NEGATIVE 07/25/2020 KETUA NEGATIVE 07/25/2020 PROTEINU 1+ (A) 07/25/2020 HGBUR NEGATIVE 07/25/2020 CASTUA NOT REPORTED 07/25/2020 CASTUA NOT REPORTED 07/25/2020 CRYSTUA NOT REPORTED 07/25/2020 BACTERIA TRACE (A) 07/25/2020 YEAST NOT REPORTED 07/25/2020 Echocardiogram complete 2D with doppler with color Result Date: 05/28/2021 [facility] Transthoracic Echocardiography Report (TTE) Patient Name LAURA Date of Study 05/28/2021 PIOTR A Date of 1960 Gender Male Age 60 year(s) Race Room Number 0333 Height: 72 inch, 182.88 cm Corporate ID [id number] Weight: 231 pounds, 104.8 kg # Patient Acct [id number] BSA: 2.26 m^2 BMI: 31.33 # kg/m^2 MR # [id number] [employer] Helper Hilda Arango Interpreting Physician Alma Kan Fellow Referring Nurse Cassie Morejon, COLOR TECHNICIAN Practitioner Interpreting Referring Physician Fellow Type of Study TTE procedure:2D Echocardiogram, M-Mode, Doppler, ColorDoppler. Procedure Date Date: 05/28/2021 Start: 10:54 AM Study Location: [facility] Indic ations:Hypertension. History / Tech. Comments: Dx: Hypotension, Hypertension Hx: HTN, stent, DM, CVA Patient Status: Inpatient Height: 72 inches Weight: 231 pounds BSA: 2.26 m^2 BMI: 31.33 kg/m^2 BP:129/62 mmHg CONCLUSIONS Summary Global left ventricular systolic function appears preserved with anestimated ejection fraction of 50-55%. Definity contrast was used for better visualization of the apex. The left ventricular cavity size is within normal limits and the left ventricular wall thickness is mildly increased. Mild thinning and hypokinesis of the apex noted. No evidence of apical thrombi. The left atrium is mildly dilated (29-33) with a left atrial volume index of 32 ml/m2. No significant valvular abnormalities. Evidence of mild (grade I) diastolic dysfunction is seen. No prior studies were available for comparison. Signature ---- FINDINGS Left Atrium The left atrium is mildly dilated (29-33) with a left atrial volume index of 32 ml/m2. Left Ventricle Global left ventricular systolic function appears preserved with anestimated ejection fraction of 50-55%. Definity contrast was used for better visualization of the apex. The left ventricular cavity size is within normal limits and the left ventricular wall thickness is mildly increased. Mild thinning and hypokinesis of the apex noted. No evidence of apical thrombi. Right Atrium Right atrium is normal in size. Right Ventricle Normal right ventricular size and function. Mitral Valve Thickened mitral valve leaflets. Mitral annular calcification is seen. Aortic Va lve Aortic valve sclerosis without stenosis. No aortic insufficiency. Tricuspid Valve Normal tricuspid valve structure and function. Pulmonic Valve The pulmonic valve is normal in structure. Pericardial Effusion No significant pericardial effusion is seen. Miscellaneous Evidence of mild (grade I) diastolic dysfunction is seen. M-mode / 2D Measurements & Calculations: LVIDd:5.01 cm(3.7 - 5.6 cm) Diastolic Volume:103.9875 ml LVIDs:3.64 cm(2.2 - 4.0 cm) Systolic Volume:48 ml IVSd:1.33 cm(0.6 -1.1 cm) Aortic Root:3.42 cm(2.0 - 3.7 cm) LVPWd:1.35 cm(0.6 - 1.1 cm) LA Dimension: 4.91 cm(1.9 - 4.0 cm) Fractional Shortenin.35 % LA volume/Index: 72 ml /32m^2 Calculated LVEF (%): 53.84 % AV Cusp Separation: 2.08 cm LVOT:2.24 cm RVDd:4.09 cm Mitral: Aortic Valve Area (P1/2-Time): 3.1 cm^2 Peak Velocity: 1.43 m/s Peak E-Wave: 0.73 m/s Mean Velocity: 1.07 m/s Peak A- Wave: 0.90 m/s Peak Gradient: 8.23 mmHg E/A Ratio: 0.81 Mean Gradient: 4.93 mmHg Peak Gradient: 2.12 mmHg Acceleration Time: 66.3 msec P1/2t: 70.98 msec Area (continuity): 3.45 cm^2 AV VTI: 30.06 cm Lateral Wall E' velocity:0.08 m/s XR CHEST (2 VW) Result Date: 05/27/2021 EXAMINATION: TWO XRAY VIEWS OF THE CHEST 05/27/2021 4:53 pm COMPARISON: 05/20/2021 HISTORY: ORDERING SYSTEM PROVIDED HISTORY: htn TECHNOLOGIST PROVIDED HISTORY: htn FINDINGS: The cardiomediastinal silhouette is normal in size and contour. The lungs are clear. No pleural effusion or pneumothorax is present. No acute cardiopulmonary process Assessment and Plan: Patient Active Problem List Diagnosis Date Noted NSTEMI (non-ST elevated myocardial infarction) ([facility]) Hypoxia 05/30/2021 Abnormal stress test S/P angioplasty with stent Dyslipidemia History of stroke Benign essential HTN 05/27/2021 Coronary artery disease involving [place] heart with angina pectoris and documented spasm ([facility]) 05/27/2021 CHRIS (obstructive sleep apnea) 05/27/2021 Uncontrolled type 2 diabetes mellitus with hyperglycemia ([facility]) 07/29/2020 BPH with obstruction/lower urinary tract symptoms 07/25/2020 Incomplete emptying of bladder 07/25/2020 Discharge Medications: Medication List START taking these medications carvedilol 3.125 MG tablet Commonly known as: COREG Take 1 tablet by mouth 2 times daily (with meals) cyclobenzaprine 10 MG tablet Commonly known as: FLEXERIL Take 1 tablet by mouth 3 times daily as needed for Muscle spasms isosorbide mononitrate 30 MG extended release tablet Commonly known as: IMDUR Take 1 tablet by mouth daily Start taking on: June 01, 2021 nitroGLYCERIN 0.4 MG SL tablet Commonly known as: NITROSTAT up to max of 3 total doses. If no relief after 1 dose, call 911. CHANGE how you take these medications furosemide 40 MG tablet Commonly known as: LASIX Take 1 tablet by mouth daily Start taking on: June 01, 2021 What changed: medication strength when to take this CONTINUE taking these medications amLODIPine 5 MG tablet Commonly known as: NORVASC aspirin 81 MG EC tablet HumaLOG KwikPen 100 UNIT/ML Sopn Generic drug: insulin lispro (1 Unit Dial) insulin glargine 100 UNIT/ML injection vial Commonly known as: LANTUS losartan 25 MG tablet Commonly known as: COZAAR NONFORMULARY Pennsaid 2 % Soln Generic drug: Diclofenac Sodium pravastatin 10 MG tablet Commonly known as: PRAVACHOL tamsulosin 0.4 MG capsule Commonly known as: FLOMAX Take 1 capsule by mouth every evening * B-D UF III MINI PEN NEEDLES 31G X 5 MM Misc Generic drug: Insulin Pen Needle * TechLite Pen [place] 31G X 8 MM Misc Generic drug: Insulin Pen Needle Vitamin D3 1.25 MG (70963 UT) Caps * This list has 2 medication(s) that are the same as other medications prescribed for you. Read thedirections carefully, and ask your doctor or other care provider to review them with you. Where to Get Your Medications These medications were sent to [facility]/pharmacy #[id number] - [place], [place] - [address] [facility] - [phone] - F [phone] [place] [address] carvedilol 3.125 MG tablet cyclobenzaprine 10 MG tablet furosemide 40 MG tablet isosorbide mononitrate 30 MG extended release tablet nitroGLYCERIN 0.4 MG SL tablet Patient Instructions: Activity: activity as tolerated Diet: cardiac diet Wound Care: none needed Other: Cardiac Cath Thursday06/03/2021 Disposition: Discharge to Home Follow up: Patient will be followed by Jorge Pritchett DO in 1-2 weeks CORE MEASURES on Discharge (if applicable) KIRIT/ARB in CHF: NA Statin in PA: NA ASA in PA: NA Statin in CVA: NA Antiplatelet in CVA: NA Total time spent on discharge services: 40 minutes Including the following activities: Evaluation and Management of patient Discussion with patient and/or surrogate about current care plan Coordination with Case Management and/or Mining Helper Coordination of care with Consultants (if applicable) Coordination of care with Receiving Facility Physician (if applicable) Completion of DME forms (if applicable) Preparation of Discharge Summary Preparation of Medication Reconciliation Preparation of Discharge Prescriptions Signed: Cassie Morejon APRN - COLOR TECHNICIAN, [employer] DEVELOPMENT TECHNICIANGeremiasC 05/31/2021, 1:47 PM Associated attestation - Lamont Vasquez MD - 05/31/2021 3:17 PM EST Images from the original note were not included. I personally evaluated and examined the patient face to face in conjunction with the APC and agree with the management and disposition of the patient. My tellez findings are: Patient ID: Piotr Kerr [id number] Admission date: 05/27/2021 Discharge date: 05/31/2021 Admitting Physician: Lamont Vasquez MD Primary Care Physician: Jorge Pritchett DO Primary Discharge Diagnoses: Patient Active Problem List Diagnosis Date Noted NSTEMI (non-ST elevated myocardial infarction) ([facility]) Hypoxia 05/30/2021 Abnormal stress test S/P angioplasty with stent Dyslipidemia History of stroke Benign essential HTN 05/27/2021 Coronary artery disease involving [place] heart with angina pectoris and documented spasm ([facility]) 05/27/2021 CHRIS (obstructive sleep apnea) 05/27/2021 Uncontrolled type 2 diabetes mellitus with hyperglycemia ([facility]) 07/29/2020 BPH with obstruction/lower urinary tract symptoms 07/25/2020 Incomplete emptying of bladder 07/25/2020 Additional Diagnoses: Diagnosis Date Cerebrovascular accident (CVA) ([facility]) Chronic pain Essential hypertension H/O heart artery stent 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 ([facility]) Type 2 diabetes mellitus without complication ([facility]) Review of Systems: Constitutional: negative for fevers or chills Eyes: negative for visual disturbance ENT: negative for sore throat or nasal congestion Respiratory: positive for shortness of breath on exertion Cardiovascular: negative for chest pain ,palpitations,pnd,syncope Gastrointestinal: negative for abd pain, nausea, vomiting, diarrhea , constipation,hemetemesis,edwige,blood in stool Genitourinary: negative for dysuria, has urgency ,frequency,neg for hematuria Integument/breast: negative for skin rash or lesions Neurological: negative for unilateral weakness, numbness or tingling. Skeletal Muscular: no joint pain,jont swelling,back pain Physical exam: Exam: GEN: A & O x3, no apparent distress EYES: No gross abnormalities. NECK: normal, supple, no lymphadenopathy, no carotid bruits PULM: clear to auscultation bilaterally- no wheezes, rales or rhonchi, normal air movement, no respiratory distress COR: regular rate & rhythm and no gallops ABD: soft, non-tender, non-distended, normal bowel sounds, no masses or organomegaly EXT: no cyanosis, clubbing or edema present NEURO: negative SKIN: no rashes or significant lesions Hospital Course: The patient was admitted for the above. Piotr Kerr is a 60 y.o. male admitted with CAD with angina. He presented for complaints of shortness of breath on exertion and chest pain.Patient completed a stress test 1 month ago and was abnormal. Patient was seen by Dr. Kan for evaluation and was admitted for cardiac cath. During patient's evaluation he was found to have severe CAD and was recommended for transfer for tertiary care cardiology treatment for stent placement. Patient was placed on transfer list and accepted. However due to critical bed shortage patientis unable to be transferred at this time after awaiting 2 days for transfer. Patient is symptom free. Patient will be discharged home today he will follow-up with on June 03 for an outpatient cath. This was cleared through cardiology and patient was agreeable to this plan of care. Medications have been optimized and symptoms controlled. Patient was also started on Flexeril for spasm of his leg which was causing him severe discomfort. The muscle relaxer has not proved his pain significantly. He will also continue this on discharge as well. Patient was also found to have urinary retention with over 1000 mL in his bladder. Diaz catheter was placed. Patient will continue on Flomax. He will be discharged home with Diaz catheter and will follow up with urology as an outpat ient. Consultants: cardiology Procedures: Left heart cath Complications: none Significant Diagnostic Studies: Echocardiogram complete 2D with doppler with color Result Date: 05/28/2021 [facility] Transthoracic Echocardiography Report (TTE) Patient Name LAURA Date of Study 05/28/2021 PIOTR A Date of 1960 Gender Male Age 60 year(s) Race Room Number 0333 Height: 72 inch, 182.88 cm Corporate ID [id number] Weight: 231 pounds, 104.8 kg # Patient Acct [id number] BSA: 2.26 m^2 BMI: 31.33 # kg/m^2 MR # [id number] [employer] Helper Hilda Arango Interpreting Physician Alma Kan Fellow Referring Nurse Cassie Morejon, COLOR TECHNICIAN Practitioner Interpreting Referring Physician Fellow Type of Study TTE procedure:2D Echocardiogram, M-Mode, Doppler, ColorDoppler. Procedure Date Date: 05/28/2021 Start: 10:54 AM Study Location: [facility] Indic ations:Hypertension. History / Tech. Comments: Dx: Hypotension, Hypertension Hx: HTN, stent, DM, CVA Patient Status: Inpatient Height: 72 inches Weight: 231 pounds BSA: 2.26 m^2 BMI: 31.33 kg/m^2 BP:129/62 mmHg CONCLUSIONS Summary Global left ventricular systolic function appears preserved with anestimated ejection fraction of 50-55%. Definity contrast was used for better visualization of the apex. The left ventricular cavity size is within normal limits and the left ventricular wall thickness is mildly increased. Mild thinning and hypokinesis of the apex noted. No evidence of apical thrombi. The left atrium is mildly dilated (29-33) with a left atrial volume index of 32 ml/m2. No significant valvular abnormalities. Evidence of mild (grade I) diastolic dysfunction is seen. No prior studies were available for comparison. Signature ---- FINDINGS Left Atrium The left atrium is mildly dilated (29-33) with a left atrial volume index of 32 ml/m2. Left Ventricle Global left ventricular systolic function appears preserved with anestimated ejection fraction of 50-55%. Definity contrast was used for better visualization of the apex. The left ventricular cavity size is within normal limits and the left ventricular wall thickness is mildly increased. Mild thinning and hypokinesis of the apex noted. No evidence of apical thrombi. Right Atrium Right atrium is normal in size. Right Ventricle Normal right ventricular size and function. Mitral Valve Thickened mitral valve leaflets. Mitral annular calcification is seen. Aortic Va lve Aortic valve sclerosis without stenosis. No aortic insufficiency. Tricuspid Valve Normal tricuspid valve structure and function. Pulmonic Valve The pulmonic valve is normal in structure. Pericardial Effusion No significant pericardial effusion is seen. Miscellaneous Evidence of mild (grade I) diastolic dysfunction is seen. M-mode / 2D Measurements & Calculations: LVIDd:5.01 cm(3.7 - 5.6 cm) Diastolic Volume:103.9875 ml LVIDs:3.64 cm(2.2 - 4.0 cm) Systolic Volume:48 ml IVSd:1.33 cm(0.6 -1.1 cm) Aortic Root:3.42 cm(2.0 - 3.7 cm) LVPWd:1.35 cm(0.6 - 1.1 cm) LA Dimension: 4.91 cm(1.9 - 4.0 cm) Fractional Shortenin.35 % LA volume/Index: 72 ml /32m^2 Calculated LVEF (%): 53.84 % AV Cusp Separation: 2.08 cm LVOT:2.24 cm RVDd:4.09 cm Mitral: Aortic Valve Area (P1/2-Time): 3.1 cm^2 Peak Velocity: 1.43 m/s Peak E-Wave: 0.73 m/s Mean Velocity: 1.07 m/s Peak A- Wave: 0.90 m/s Peak Gradient: 8.23 mmHg E/A Ratio: 0.81 Mean Gradient: 4.93 mmHg Peak Gradient: 2.12 mmHg Acceleration Time: 66.3 msec P1/2t: 70.98 msec Area (continuity): 3.45 cm^2 AV VTI: 30.06 cm Lateral Wall E' velocity:0.08 m/s XR CHEST (2 VW) Result Date: 05/27/2021 EXAMINATION: TWO XRAY VIEWS OF THE CHEST 05/27/2021 4:53 pm COMPARISON: 05/20/2021 HISTORY: ORDERING SYSTEM PROVIDED HISTORY: htn TECHNOLOGIST PROVIDED HISTORY: htn FINDINGS: The cardiomediastinal silhouette is normal in size and contour. The lungs are clear. No pleural effusion or pneumothorax is present. No acute cardiopulmonary process US RENAL COMPLETE Result Date: 05/29/2021 EXAMINATION: RETROPERITONEAL ULTRASOUND OF THE KIDNEYS AND URINARY BLADDER 05/29/2021 COMPARISON: None HISTORY: ORDERING SYSTEM PROVIDED HISTORY: CKD stage IIIa TECHNOLOGIST PROVIDED HISTORY: CKD stageIIIa 60-year-old male with chronic kidney disease, stage III A FINDINGS: Kidneys: Exam limited due to patient immobility. Right kidney measures 11.2 x 6.1 x 5.3 cm. Right renal cortical thickness measures 1.6 cm. Left kidney measures 11.3 x 6.4 x 6.3 cm. Left renal cortical thickness measures 1.7 cm. Gross preservation of the bilateral corticomedullary differentiation. Color flow projects over the bilateral renal parenchyma. No echogenic foci with posterior acoustic shadowing to suggest renal calculi. Bladder: Urinary bladder measures 14.8 x 8.2 by 10.9 cm for a bladder volume of 928 mL. Urinary bladder wall thickness measures 5 mm. Bilateral ureteral jets are visualized. Urinary bladder grossly unremarkable in appearance. Postvoid urinary bladder volume could not be obtained due to patient immobility. 1. Bilateral ureteral jets are visualized. Urinary bladder grossly unremarkable. 2. Unremarkable renal ultrasound. No hydronephrosis. RECOMMENDATIONS: Unavailable XR CHEST PORTABLE Result Date: 05/20/2021 EXAMINATION: ONE XRAY VIEW OF THE CHEST 05/20/2021 11:54 am COMPARISON: None. HISTORY: ORDERING SYSTEM PROVIDED HISTORY: dyspnea TECHNOLOGIST PROVIDED HISTORY: dyspnea FINDINGS: The heart is not enlarged. No pulmonary venous congestion or edema. No convincing lung consolidation or infiltrate. No pleural effusion or pneumothorax. Osseous structures grossly intact. No acute cardiopulmonary process XR HIP 2-3 VW W PELVIS LEFT Result Date: 05/30/2021 EXAMINATION: ONE X-RAY VIEW OF THE PELVIS AND TWO X-RAY VIEWS LEFT HIP 05/30/2021 11:19 am COMPARISON: None. HISTORY: ORDERING SYSTEM PROVIDED HISTORY: left hip pain TECHNOLOGIST PROVIDED HISTORY: lefthip pain FINDINGS: Pelvic bones are intact. There is no evidence of acute fracture or dislocation at the hips. There is mild joint space narrowing and spurring at both hips. No evidence of articular surface collapse. Degenerative changes are noted in the lower lumbar spine. No acute osseous abnormality in the pelvis or left hip. Mild degenerative changes. Recent Results (from the past 96 hour(s)) Hemoglobin A1c Collection Time: 05/27/21 5:20 PM Result Value Ref Range Hemoglobin A1C 6.4 (H) 4.0 - 6.0 % Estimated Avg Glucose 137 mg/dL Basic Metabolic Panel w/ Reflex to MG Collection Time: 05/27/21 5:20 PM Result Value Ref Range Glucose 133 (H) 70 - 99 mg/dL BUN 19 8 - 23 mg/dL CREATININE 1.24 (H) 0.70 - 1.20 mg/dL Bun/Cre Ratio 15 9 - 20 Calcium 10.9 (H) 8.6 - 10.4 mg/dL Sodium 137 135 - 144 mmol/L Potassium 3.7 3.7 - 5.3 mmol/L Chloride 101 98 - 107 mmol/L CO2 26 20 - 31 mmol/L Anion Gap 10 9 - 17 mmol/L GFR Non- 59 (L) >60 mL/min GFR >60 >60 mL/min GFR Comment GFR Staging CBC auto differential Collection Time: 05/27/21 5:20 PM Result Value Ref Range WBC 5.2 3.5 - 11.3 k/uL RBC 4.19 (L) 4.21 - 5.77 m/uL Hemoglobin 12.6 (L) 13.0 - 17.0 g/dL Hematocrit 37.5 (L) 40.7 - 50.3 % MCV 89.5 82.6 - 102.9 fL MCH 30.1 25.2 - 33.5 pg MCHC 33.6 28.4 - 34.8 g/dL RDW 11.7 (L) 11.8 - 14.4 % Platelets 238 138 - 453 k/uL MPV 10.2 8.1 - 13.5 fL NRBC Automated 0.0 0.0 per 100 WBC Differential Type NOT REPORTED WBC Morphology NOT REPORTED RBC Morphology NOT REPORTED Platelet Estimate NOT REPORTED Seg Neutrophils 67 (H) 36 - 65 % Lymphocytes 15 (L) 24 - 43 % Monocytes 17 (H) 3 - 12 % Eosinophils % 1 1 - 4 % Basophils 1 0 - 2 % Immature Granulocytes 0 0 % Segs Absolute 3.50 1.50 - 8.10 k/uL Absolute Lymph # 0.78 (L) 1.10 - 3.70 k/uL Absolute [place] # 0.87 0.10 - 1.20 k/uL Absolute Eos # 0.03 0.00 - 0.44 k/uL Basophils Absolute 0.03 0.00 - 0.20 k/uL Absolute Immature Granulocyte <0.03 0.00 - 0.30 k/uL Troponin Collection Time: 05/27/21 5:20 PM Result Value Ref Range Troponin, High Sensitivity 45 (H) 0 - 22 ng/L Troponin T NOT REPORTED <0.03 ng/mL Troponin Interp NOT REPORTED EKG 12 lead Collection Time: 05/27/21 5:27 PM Result Value Ref Range Ventricular Rate 71 BPM Atrial Rate 71 BPM P-R Interval 132 ms QRS Duration 96 ms Q-T Interval 406 ms QTc Calculation (Bazett) 441 ms P [place] 27 degrees R [place] -15 degrees T [place] -82 degrees Glucose, Whole Blood Collection Time: 05/27/21 8:31 PM Result Value Ref Range POC Glucose 146 (H) 74 - 100 mg/dL Troponin Collection Time: 05/28/21 5:28 AM Result Value Ref Range Troponin, High Sensitivity 60 (HH) 0 - 22 ng/L Troponin T NOT REPORTED <0.03 ng/mL Troponin Interp NOT REPORTED Glucose, Whole Blood Collection Time: 05/28/21 6:58 AM Result Value Ref Range POC Glucose 75 74 - 100 mg/dL Glucose, Whole Blood Collection Time: 05/28/21 9:21 AM Result Value Ref Range POC Glucose 77 74 - 100 mg/dL Glucose, Whole Blood Collection Time: 05/28/21 11:09 AM Result Value Ref Range POC Glucose 129 (H) 74 - 100 mg/dL Basic Metabolic Panel Collection Time: 05/28/21 2:15 PM Result Value Ref Range Glucose 97 70 - 99 mg/dL BUN 21 8 - 23 mg/dL CREATININE 1.40 (H) 0.70 - 1.20 mg/dL Bun/Cre Ratio 15 9 - 20 Calcium 10.7 (H) 8.6 - 10.4 mg/dL Sodium 137 135 - 144 mmol/L Potassium 3.6 (L) 3.7 - 5.3 mmol/L Chloride 101 98 - 107 mmol/L CO2 25 20 - 31 mmol/L Anion Gap 11 9 - 17 mmol/L GFR Non- 52 (L) >60 mL/min GFR >60 >60 mL/min GFR Comment GFR Staging CBC Collection Time: 05/28/21 2:15 PM Result Value Ref Range WBC 3.8 3.5 - 11.3 k/uL RBC 4.37 4.21 - 5.77 m/uL Hemoglobin 13.2 13.0 - 17.0 g/dL Hematocrit 38.7 (L) 40.7 - 50.3 % MCV 88.6 82.6 - 102.9 fL MCH 30.2 25.2 - 33.5 pg MCHC 34.1 28.4 - 34.8 g/dL RDW 11.8 11.8 - 14.4 % Platelets 220 138 - 453 k/uL MPV 10.2 8.1 - 13.5 fL NRBC Automated 0.0 0.0 per 100 WBC Glucose, Whole Blood Collection Time: 05/28/21 4:02 PM Result Value Ref Range POC Glucose 76 74 - 100 mg/dL Glucose, Whole Blood Collection Time: 05/28/21 8:45 PM Result Value Ref Range POC Glucose 147 (H) 74 - 100 mg/dL Basic Metabolic Panel Collection Time: 05/29/21 6:00 AM Result Value Ref Range Glucose 98 70 - 99 mg/dL BUN 20 8 - 23 mg/dL CREATININE 1.54 (H) 0.70 - 1.20 mg/dL Bun/Cre Ratio 13 9 - 20 Calcium 9.7 8.6 - 10.4 mg/dL Sodium 139 135 - 144 mmol/L Potassium 3.2 (L) 3.7 - 5.3 mmol/L Chloride 102 98 - 107 mmol/L CO2 23 20 - 31 mmol/L Anion Gap 14 9 - 17 mmol/L GFR Non- 46 (L) >60 mL/min GFR 56 (L) >60 mL/min GFR Comment GFR Staging CBC Collection Time: 05/29/21 6:00 AM Result Value Ref Range WBC 4.4 3.5 - 11.3 k/uL RBC 4.42 4.21 - 5.77 m/uL Hemoglobin 13.1 13.0 - 17.0 g/dL Hematocrit 39.5 (L) 40.7 - 50.3 % MCV 89.4 82.6 - 102.9 fL MCH 29.6 25.2 - 33.5 pg MCHC 33.2 28.4 - 34.8 g/dL RDW 11.8 11.8 - 14.4 % Platelets 198 138 - 453 k/uL MPV 10.5 8.1 - 13.5 fL NRBC Automated 0.0 0.0 per 100 WBC Troponin Collection Time: 05/29/21 6:00 AM Result Value Ref Range Troponin, High Sensitivity 58 (HH) 0 - 22 ng/L Troponin T NOT REPORTED <0.03 ng/mL Troponin Interp NOT REPORTED Lipid Panel Collection Time: 05/29/21 6:00 AM Result Value Ref Range Cholesterol 109 <200 mg/dL HDL 19 (L) >40 mg/dL LDL Cholesterol 67 0 - 130 mg/dL Chol/HDL Ratio 5.7 (H) <5 Triglycerides 117 <150 mg/dL VLDL NOT REPORTED 1 - 30 mg/dL Glucose, Whole Blood Collection Time: 05/29/21 7:01 AM Result Value Ref Range POC Glucose 94 74 - 100 mg/dL Glucose, Whole Blood Collection Time: 05/29/21 11:04 AM Result Value Ref Range POC Glucose 97 74 - 100 mg/dL Basic Metabolic Panel Collection Time: 05/30/21 5:47 AM Result Value Ref Range Glucose 114 (H) 70 - 99 mg/dL BUN 24 (H) 8 - 23 mg/dL CREATININE 1.61 (H) 0.70 - 1.20 mg/dL Bun/Cre Ratio 15 9 - 20 Calcium 8.8 8.6 - 10.4 mg/dL Sodium 135 135 - 144 mmol/L Potassium 3.5 (L) 3.7 - 5.3 mmol/L Chloride 101 98 - 107 mmol/L CO2 23 20 - 31 mmol/L Anion Gap 11 9 - 17 mmol/L GFR Non- 44 (L) >60 mL/min GFR 53 (L) >60 mL/min GFR Comment GFR Staging CBC Collection Time: 05/30/21 5:47 AM Result Value Ref Range WBC 3.5 3.5 - 11.3 k/uL RBC 3.93 (L) 4.21 - 5.77 m/uL Hemoglobin 11.6 (L) 13.0 - 17.0 g/dL Hematocrit 35.4 (L) 40.7 - 50.3 % MCV 90.1 82.6 - 102.9 fL MCH 29.5 25.2 - 33.5 pg MCHC 32.8 28.4 - 34.8 g/dL RDW 11.8 11.8 - 14.4 % Platelets 208 138 - 453 k/uL MPV 10.7 8.1 - 13.5 fL NRBC Automated 0.0 0.0 per 100 WBC Troponin Collection Time: 05/30/21 11:15 AM Result Value Ref Range Troponin, High Sensitivity 54 (HH) 0 - 22 ng/L Troponin T NOT REPORTED <0.03 ng/mL Troponin Interp NOT REPORTED Basic Metabolic Panel Collection Time: 05/31/21 6:15 AM Result Value Ref Range Glucose 140 (H) 70 - 99 mg/dL BUN 21 8 - 23 mg/dL CREATININE 1.59 (H) 0.70 - 1.20 mg/dL Bun/Cre Ratio 13 9 - 20 Calcium 8.7 8.6 - 10.4 mg/dL Sodium 141 135 - 144 mmol/L Potassium 3.9 3.7 - 5.3 mmol/L Chloride 105 98 - 107 mmol/L CO2 24 20 - 31 mmol/L Anion Gap 12 9 - 17 mmol/L GFR Non- 44 (L) >60 mL/min GFR 54 (L) >60 mL/min GFR Comment GFR Staging CBC Collection Time: 05/31/21 6:15 AM Result Value Ref Range WBC 4.1 3.5 - 11.3 k/uL RBC 3.96 (L) 4.21 - 5.77 m/uL Hemoglobin 12.0 (L) 13.0 - 17.0 g/dL Hematocrit 35.9 (L) 40.7 - 50.3 % MCV 90.7 82.6 - 102.9 fL MCH 30.3 25.2 - 33.5 pg MCHC 33.4 28.4 - 34.8 g/dL RDW 11.7 (L) 11.8 - 14.4 % Platelets 188 138 - 453 k/uL MPV 10.6 8.1 - 13.5 fL NRBC Automated 0.0 0.0 per 100 WBC Discharge Condition: stable Disposition: St v Discharge Medications: Medication List START taking these medications carvedilol 3.125 MG tablet Commonly known as: COREG Take 1 tablet by mouth 2 times daily (with meals) cyclobenzaprine 10 MG tablet Commonly known as: FLEXERIL Take 1 tablet by mouth 3 times daily as needed for Muscle spasms isosorbide mononitrate 30 MG extended release tablet Commonly known as: IMDUR Take 1 tablet by mouth daily Start taking on: June 01, 2021 nitroGLYCERIN 0.4 MG SL tablet Commonly known as: NITROSTAT up to max of 3 total doses. If no relief after 1 dose, call 911. CHANGE how you take these medications furosemide 40 MG tablet Commonly known as: LASIX Take 1 tablet by mouth daily Start taking on: June 01, 2021 What changed: medication strength when to take this CONTINUE taking these medications amLODIPine 5 MG tablet Commonly known as: NORVASC aspirin 81 MG EC tablet HumaLOG KwikPen 100 UNIT/ML Sopn Generic drug: insulin lispro (1 Unit Dial) insulin glargine 100 UNIT/ML injection vial Commonly known as: LANTUS losartan 25 MG tablet Commonly known as: COZAAR NONFORMULARY Pennsaid 2 % Soln Generic drug: Diclofenac Sodium pravastatin 10 MG tablet Commonly known as: PRAVACHOL tamsulosin 0.4 MG capsule Commonly known as: FLOMAX Take 1 capsule by mouth every evening * B-D UF III MINI PEN NEEDLES 31G X 5 MM Misc Generic drug: Insulin Pen Needle * TechLite Pen [place] 31G X 8 MM Misc Generic drug: Insulin Pen Needle Vitamin D3 1.25 MG (30240 UT) Caps * This list has 2 medication(s) that are the same as other medications prescribed for you. Read thedirections carefully, and ask your doctor or other care provider to review them with you. Where to Get Your Medications These medications were sent to [facility]/pharmacy #[id number] - [place], [place] - [address] [place] [address] - P [phone] - F [phone] [place] [address] carvedilol 3.125 MG tablet cyclobenzaprine 10 MG tablet furosemide 40 MG tablet isosorbide mononitrate 30 MG extended release tablet nitroGLYCERIN 0.4 MG SL tablet Resume all home medications unless otherwise directed Add Stop taking Patient Instructions: Activity: activity as tolerated Diet: cardiac diet Wound Care: none needed Other: Follow up with PCP as directed Time Spent on discharge services is 40 minutes in the examination, evaluation, counseling and review of medications and discharge plan. Signed: Lamont Vasquez MD, M.D. 05/31/2021 3:15 PM I reviewed and agree with the findings and plan documented in her note . Lamont Vasquez MD MD documented in this [facility] [employer] Phone: [phone]) 740-925901-05-2022 Hospital Discharge instructions* Instructions* Kae Goodrich RN - 05/29/2021 Arrive at [facility] by 11:00 AM on 06/03/21 for the Heart Catheterization at 12:00 PM. Nothing to eat or drink after Midnight 1/10/22. Maintain Diaz catheter. Follow up with Dr. Ferrer (Urologist) next week. --A message was left with them to contact you for an appointment, if you do not hear from them by Thursday, call office at [phone]. * Attachments The following attachments cannot be sent through Care Everywhere. * CAD (Coronary Artery Disease): General Info ([place]) documented in this [employer] Phone: 1(846) 456-340812-01-2021 History of Present illness Narrative* Gopi Mcelroy - 04/24/2021 8:00 PM EST Piotr arrived with on time for his Diagnostic Sleep Study. stayed for setup, and will return to pick Piotr up in morning. Setup, and polysomnogram progressed successfully. documented in this [employer] Phone: [phone] 847-100402-01-2020 History general Narrative - Reported* Type Description Date Medical History hypertension Medical History type II diabetes Medical History hypercholesterolemia Medical History stroke 06/2019 Medical History Vitamin D deficiency Medical History Hyperphosphatemia Medical History Hypercalcemia Medical History Cerebral atherosclerosis Medical History ASHD (arteriosclerotic heart dis ease) Medical History Chronic systolic heart failure Medical History Atherosclerosis of n ative artery of left lower extremity with intermittent claudication Surgical History 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 Hospitalization History STROKE 06/2019 [employer] Other 02-01-2020 History general Narrative - Reported* Type Description Date Medical History hypertension Medical History type II diabetes Medical History hypercholesterolemia Medical History stroke 06/2019 Medical History Vitamin D deficiency Medical History Hyperphosphatemia Medical History Hypercalcemia Medical History Cerebral atherosclerosis Medical History ASHD (arteriosclerotic heart dis ease) Medical History Atherosclerosis of n ative artery of left lower extremity with intermittent claudication Medical History chronic diastolic heart failure Surgical History 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 Hospitalization History STROKE 06/2019 [employer] Other Evaluation note* Diagnosis Coronary artery disease involving [place] heart with angina pectoris and documented spasm (HCC)- Primary Benign essential HTN Essential hypertension, benign CHRIS (obstructive sleep apnea) Obstructive sleep apnea (adult) (pediatric) Hypoxia Hypoxemia Abnormal stress test Other nonspecific abnormal cardiovascular system function study S/P angioplasty with stent Postsurgical percutaneous transluminal coronary angioplasty status Dyslipidemia Other and unspecified hyperlipidemia History of stroke Transient ischemic attack (TIA), and cerebral infarction without residual deficits documented in this encounter [employer] Phone: evaluation note* Diagnosis Uricaciduria Other nonspecific finding on examination of urine documented in this encounter [employer] Phone: evaluation noteNo assessment information available [facility] Work Phone: Evaluation note* Diagnosis Incomplete emptying of bladder Incomplete bladder emptying documented in this encounter [employer] Phone: [email or web address] note* Diagnosis Incomplete emptying of bladder Incomplete bladder emptying Prostate cancer screening Special screening for malignant neoplasm of prostate S/P angioplasty with stent Postsurgical percutaneous transluminal coronary angioplasty status Chronic systolic heart failure (HCC) Chronic systolic heart failure Shortness of breath Coronary artery disease involving [place] coronary artery of [place] heart with angina pectoris with documented spasm (HCC) Intermittent claudication (HCC) Peripheral vascular disease, unspecified Primary hypertension Unspecified essential hypertension Mixed hyperlipidemia CHRIS (obstructive sleep apnea) Obstructive sleep apnea (adult) (pediatric) Stage 3 chronic kidney disease, unspecified whether stage 3a or 3b CKD (HCC) Primary hyperparathyroidism (HCC) Primary hyperparathyroidism Adenoma of left adrenal gland Benign neoplasm of adrenal gland documented in this encounter [employer] Phone: evaluation note* Diagnosis Incomplete bladder emptying documented in this encounter [employer] Phone: [email or web address] note* Diagnosis BPH with obstruction/lower urinary tract symptoms Hypertrophy of prostate with urinary obstruction and other lower urinary tract symptoms (LUTS) Incomplete emptying of bladder Incomplete bladder emptying Frequency of urination Urinary frequency Urgency of micturition Enlarged prostate with urinary obstruction Hypertrophy of prostate with urinary obstruction and other lower urinary tract symptoms (LUTS) documented in this encounter [employer] Phone: evaluation note* Diagnosis BPH with obstruction/lower urinary tract symptoms Hypertrophy of prostate with urinary obstruction and other lower urinary tract symptoms (LUTS) Incomplete emptying of bladder Incomplete bladder emptying Frequency of urination Urinary frequency Urgency of micturition Enlarged prostate with urinary obstruction Hypertrophy of prostate with urinary obstruction and other lower urinary tract symptoms (LUTS) documented in this encounter [employer] Phone: [email or web address] note* Diagnosis Preop cardiovascular exam Pre-operative cardiovascular examination ASHD (arteriosclerotic heart disease) Coronary atherosclerosis of unspecified type of vessel, [place] or graft S/P angioplasty with stent Postsurgical percutaneous transluminal coronary angioplasty status Lightheaded Dizziness and giddiness Chronic systolic congestive heart failure (HCC) Chronic systolic heart failure Mixed hyperlipidemia CHRIS on CPAP Obstructive sleep apnea (adult) (pediatric) Stage 3 chronic kidney disease, unspecified whether stage 3a or 3b CKD (HCC) Adenoma of left adrenal gland Benign neoplasm of adrenal gland History of stroke Transient ischemic attack (TIA), and cerebral infarction without residual deficits Enlarged prostate with urinary obstruction Hypertrophy of prostate with urinary obstruction and other lower urinary tract symptoms (LUTS) documented in this encounter [employer] Phone: [email or web address] noteNo [employer] Other Evaluation note* Diagnosis BPH with obstruction/lower urinary tract symptoms- Primary Hypertrophy of prostate with urinary obstruction and other lower urinary tract symptoms (LUTS) documented in this encounter [employer] Phone: [email or web address] note* Diagnosis BPH with obstruction/lower urinary tract symptoms Hypertrophy of prostate with urinary obstruction and other lower urinary tract symptoms (LUTS) Post-operative state Other postprocedural status documented in this encounter [employer] Phone: evaluation note* Diagnosis Dyspnea on exertion Other dyspnea and respiratory abnormality documented in this encounter [employer] note* Diagnosis Screening PSA (prostate specific antigen) Special screening for malignant neoplasm of prostate Incomplete emptying of bladder Incomplete bladder emptying documented in this encounter [employer] note* Diagnosis Onset Date Resolution Status ASHD (arteriosclerotic heart disease) acute Cerebral atherosclerosis acu te Chronic kidney disease acute Chronic venous insufficiency of lower extremity acute Elevated cholesterol acute Hyperparathyroidism acute Hypertension acute Type 2 diabetes mellitus with hyperglycemia acute [facility] Work Phone: Evaluation note* Diagnosis BPH with obstruction/lower urinary tract symptoms- Primary Hypertrophy of prostate with urinary obstruction and other lower urinary tract symptoms (LUTS) [facility]* Diagnosis Chronic diastolic heart failure (HCC) Chronic diastolic heart failure documented [facility]* Diagnosis CHRIS (obstructive sleep apnea)- Primary Obstructive sleep apnea (adult) (pediatric) Abnormal stress test Other nonspecific abnormal cardiovascular system function study Chest pain Chest pain, unspecified Coronary artery disease involving [place] heart with angina pectoris and documented spasm, unspecified vessel or lesion type (HCC) Constipation, unspecified constipation type [facility]* Diagnosis Onset Date Resolution Status Cardiomyopathy, ischemic acu te Cerebral atherosclerosis acu te Chronic heart failure with p reserved ejection fraction (HFpEF) acute Chronic venous insufficiency of lower extremity acute Foot ulceration acute Hypercholesterolemia acute Obstructive sleep apnea acut e Primary hypertension acute Screening for colon cancer a cute Stage 3b chronic kidney disease acute Type 2 diabetes mellitus with hyperglycemia acute Wellness examination noneact pao Cardiomyopathy, ischemic acu te Cerebral atherosclerosis acu te Chronic heart failure with p reserved ejection fraction (HFpEF) acute Chronic venous insufficiency of lower extremity acute Foot ulceration acute Hypercholesterolemia acute Obstructive sleep apnea acut e Primary hypertension acute Stage 3b chronic kidney disease acute Type 2 diabetes mellitus with hyperglycemia acute [facility] Work Phone: Evaluation note* Diagnosis Critical limb ischemia of both lower extremities (HCC) Bilateral lower leg cellulitis- Primary Cellulitis and abscess of leg, except foot Bilateral lower leg cellulitis Cellulitis and abscess of leg, except foot Edema of both lower extremities due to peripheral venous insufficiency Chronic diastolic congestive heart failure (HCC) Chronic diastolic heart failure Type 2 diabetes mellitus without complication (HCC) CHF (congestive heart failure) (HCC) Congestive heart failure, unspecified Essential hypertension Unspecified essential hypertension Lymphedema Other lymphedema Obstructive sleep apnea on CPAP Obstructive sleep apnea (adult) (pediatric) Critical limb ischemia of both lower extremities (HCC) Critical limb ischemia of both lower extremities (HCC) documented in this encounter [facility] note* Diagnosis Critical limb ischemia of both lower extremities (HCC) Bilateral lower leg cellulitis- Primary Cellulitis and abscess of leg, except foot Pain in left lower leg Critical limb ischemia of both lower extremities (HCC) [facility]* Diagnosis Acute on chronic diastolic (congestive) heart failure (HCC) ASHD (arteriosclerotic heart disease) Coronary atherosclerosis of unspecified type of vessel, [place] or graft Essential hypertension Unspecified essential hypertension Mixed hyperlipidemia PAD (peripheral artery disease) ([facility]) Unspecified disorders of arteries and arterioles CHRIS (obstructive sleep apnea) Obstructive sleep apnea (adult) (pediatric) Obesity, unspecified class, unspecified obesity type, unspecified whether serious comorbidity present [facility]* Diagnosis Dermatophytosis of nail- Primary Dystrophic nail Other specified disease of nail Type II diabetes mellitus with peripheral circulatory disorder ([facility]) Type II or unspecified type diabetes mellitus with peripheral circulatory disorders, not stated as uncontrolled Diabetic polyneuropathy associated with type 2 diabetes mellitus ([facility]) [facility] Diagnosis Critical limb ischemia of both lower extremities (HCC) [facility] encounter [facility] [employer] [facility] note* Diagnosis Cellulitis of left foot- Primary Type II diabetes mellitus with peripheral circulatory disorder ([facility]) Type II or unspecified type diabetes mellitus with peripheral circulatory disorders, not stated as uncontrolled Diabetic polyneuropathy associated with type 2 diabetes mellitus ([facility]) Skin ulcer of midfoot region, left, limited to breakdown of skin ([facility]) documented in this encounter [facility]* Diagnosis Acute on chronic diastolic (congestive) heart failure (HCC) ASHD (arteriosclerotic heart disease) Coronary atherosclerosis of unspecified type of vessel, [place] or graft S/P angioplasty with stent Postsurgical percutaneous transluminal coronary angioplasty status Essential hypertension Unspecified essential hypertension Mixed hyperlipidemia PAD (peripheral artery disease) (HCC) Unspecified disorders of arteries and arterioles CHRIS (obstructive sleep apnea) Obstructive sleep apnea (adult) (pediatric) Stage 3a chronic kidney disease (HCC) Obesity, unspecified class, unspecified obesity type, unspecified whether serious comorbidity present Acute on chronic combined systolic and diastolic congestive heart failure (HCC) Acute on chronic combined systolic and diastolic heart failure documented in this encounter [facility] note* Diagnosis Cellulitis of left foot- Primary Type II diabetes mellitus with peripheral circulatory disorder ([facility]) Type II or unspecified type diabetes mellitus with peripheral circulatory disorders, not stated as uncontrolled Diabetic polyneuropathy associated with type 2 diabetes mellitus (CMS/HCC) Skin ulcer of midfoot region, left, limited to breakdown of skin (CMS/HCC) [facility]* Diagnosis Dermatophytosis of nail- Primary Dystrophic nail Other specified disease of nail Type II diabetes mellitus with peripheral circulatory disorder (CMS/HCC) Type II or unspecified type diabetes mellitus with peripheral circulatory disorders, not stated as uncontrolled Diabetic polyneuropathy associated with type 2 diabetes mellitus (CMS/HCC) documented in this encounter [facility]* Diagnosis Gangrene of toe of both feet (HCC)- Primary Eschar of toe Unspecified local infection of skin and subcutaneous tissue Critical limb ischemia of both lower extremities (HCC) documented [facility] this encounter [facility]* Diagnosis Acute renal failure superimposed on chronic kidney disease, unspecified acute renal failure type, unspecified CKD stage- Primary Dehydration documented in this encounter [facility]* Diagnosis Chronic ulcer of great toe of right foot with fat layer exposed (HCC)- Primary Eschar of toe Unspecified local infection of skin and subcutaneous tissue Critical limb ischemia of both lower extremities Gangrene of toe of both feet (HCC) documented in this encounter [facility] [employer] [facility]* Diagnosis Eschar of toe Unspecified local infection of skin and subcutaneous tissue Chronic ulcer of great toe of right foot with fat layer exposed (HCC) documented in this encounter [facility]* Diagnosis Chronic ulcer of great toe of right foot with fat layer exposed (HCC)- Primary Critical limb ischemia of both lower extremities [facility]* Diagnosis Chronic ulcer of great toe of right foot with fat layer exposed (HCC) documented in this encounter [facility]* Diagnosis Chronic ulcer of great toe of right foot with fat layer exposed (HCC)- Primary Diabetic ulcer of right great toe (HCC) Type II or unspecified type diabetes mellitus with other specified manifestations, not stated as uncontrolled documented in this encounter [facility] [employer] [facility]* Diagnosis Screening PSA (prostate specific antigen) Special screening for malignant neoplasm of prostate documented in this encounter [facility] [employer] [facility]* Diagnosis Acute on chronic diastolic (congestive) heart failure (HCC) ASHD (arteriosclerotic heart disease) Coronary atherosclerosis of unspecified type of vessel, [place] or graft S/P angioplasty with stent Postsurgical percutaneous transluminal coronary angioplasty status Essential hypertension Unspecified essential hypertension Mixed hyperlipidemia PAD (peripheral artery disease) Unspecified disorders of arteries and arterioles CHRIS (obstructive sleep apnea) Obstructive sleep apnea (adult) (pediatric) Stage 3a chronic kidney disease ([facility]) [facility]* Diagnosis Chronic ulcer of great toe of right foot with fat layer exposed (HCC) Diabetic ulcer of right great toe (HCC) Type II or unspecified type diabetes mellitus with other specified manifestations, not stated as uncontrolled [facility]* Diagnosis Osteomyelitis of great toe of right foot (HCC)- Primary Critical limb ischemia of both lower extremities (HCC) Infection of toe Unspecified local infection of skin and subcutaneous tissue Chronic ulcer of great toe of right foot with fat layer exposed (HCC) [facility]* Diagnosis Dermatophytosis of nail- Primary Dystrophic nail Other specified disease of nail Type II diabetes mellitus with peripheral circulatory disorder (HCC) Type II or unspecified type diabetes mellitus with peripheral circulatory disorders, not stated as uncontrolled Diabetic polyneuropathy associated with type 2 diabetes mellitus ([facility]) documented [facility]* Diagnosis Osteomyelitis of great toe of right foot (HCC)- Primary Acute osteomyelitis of right foot (HCC) Acute osteomyelitis, ankle and foot Open wound of toe(s) Non-healing open wound of toe Open wound of toe(s), complicated [facility]* Diagnosis Orthopedic aftercare- Primary Unspecified orthopedic aftercare History of amputation of right great toe [facility]* Diagnosis Orthopedic aftercare- Primary Unspecified orthopedic aftercare History of amputation of right great toe [facility]* Diagnosis Critical limb ischemia of both lower extremities (HCC)- Primary Eschar of toe Unspecified local infection of skin and subcutaneous tissue Gangrene of toe of both feet ([facility]) documented in this encounter [facility]* Diagnosis Onset Date Resolution Status Admit Date Cardiomyopathy, ischemic acute December 23, 2024 1:53pm Cerebral atherosclerosis acute December 23, 2024 1:53pm Chronic heart failure with preserved ejection fraction (HFpEF) acute December 23, 2024 1:53pm Chronic venous insufficiency of lower extremity acute December 23, 2024 1:53pm Diabetes mellitus with perip heral angiopathy acute December 23, 2024 1:53pm Hypercholesterolemia acute 2024 1:53pm Obstructive sleep apnea acute A ugust 2024 1:53pm Primary hypertension acute 2024 1:53pm Screening PSA (prostate spec ific antigen) acute December 23, 2024 1:53pm Stage 3b chronic kidney disease acut e December 23, 2024 1:53pm Type 2 diabetes mellitus wit h hyperglycemia acute December 23, 2024 1:53pm Welcome to Medicare preventi ve visit noneactive December 23, 2024 1:53pm Wellness examination noneactive 2024 1:53pm [facility] Work Phone: reason for referral (narrative)No reason for referral [facility] available[facility] Work Phone: Reidzh for visit Narrative* Auth/Cert Specialty Diagnoses / Procedures Referred By Contac t Referred To Contact Diagnoses Hypotension Benign essential HTN Lamont Vasquez MD [address] [facility] [address] [place] [address] [facility] [address] [place] [address] Referral ID Status Reason Start Date Expiration Date Visits Re quested Visits Authorized [id number] 1 1 [facility] Work Phone: reason for visit Narrative* Imaging (Routine) - Not Required - RTA Specialty Diagnoses / Procedures Referred By Contdimitri t Referred To Contact Radiology Diagnoses Chronic ulcer of great toe of right foot with fat layer exposed (HCC) Diabetic ulcer of right great toe (HCC) Procedures MRI FOOT RIGHT WO CONTRAST Quincy Penn DPM [address] [place] [address] [address] [address] Phone: tel: fax: Referral ID Status Reason Start Date Expiration Date V isits Requested Visits Authorized [id number] Not Required - RTA 10/04/2024 10/04/[address] [facility] [employer]Reason for visit Narrative* Auth/Cert Specialty Diagnoses / Procedures Referred By Contdimitri t Referred To Contact Diagnoses Acute osteomyelitis of right foot (HCC) osteomyelitis with complicated wound right foot and hallux Procedures [place] AMPUTATION TOE METATARSOPHALANGEAL JOINT TOE AMPUTATION-big toe right, flap closure of right foot Quincy Penn DPM [address] [facility] [address] [place] [address] Phone: tel: fax: [facility] [employer] [address] [place] [address] Referral ID Status Reason Start Date Expiration Date Visits Re quested Visits Authorized [id number] 1 1 [employer] Assessments Diagnosis BPH with obstruction/lower urinary tract symptoms Hypertrophy of prostate with urinary obstruction and other lower urinary tract symptoms (LUTS) Incomplete emptying of bladder Incomplete bladder emptying Summary Purpose Family History No Family History Records Found Relationship Condition Age at Onset Recorded Date/T ha father Unknown Heart disease Unknown Not Specified Unknown Diabetes mellitus Unknown Relationship Condition Age at Onset Recorded Date/T ha father Unknown Heart disease Unknown mother Unknown Diabetes mellitus Unknown Advance Directives No Advanced Directives Records FoundLatest Code Status on File Code Status Date Activated Date Inactivated Comments Full Code 05/29/2021 7:40 AM Full Code 05/27/2021 4:21 PM 05/29/2021 7:40 AM Latest Code Status on File Code Status Date Activated Date Inactivated Comments Full Code 09/09/2021 11:16 AM 09/10/2021 2:45 AM Full Code 06/13/2021 2:58 PM 06/20/2021 5:39 PM Full Code 06/06/2021 7:19 PM 06/12/2021 4:03 PM Full Code 06/03/2021 11:00 AM 06/04/2021 2:50 AM Full Code 05/29/2021 7:40 AM 06/01/2021 4:47 PM Healthcare Agents on File Name Relationship Healthcare Agent [facility] p Communication Mary Kerr Spouse Primary Decision Maker Jeff Kerr Child Secondary Decision Make r Healthcare Agents on File Name Relationship Healthcare Agent Relationshi p Communication Mary Baldetti Spouse Primary Decision Maker Jeff Baldetti Child Secondary Decision Make r Latest Code Status on File Code Status Date Activated Date Inactivated Comments Full Code 09/09/2021 11:16 AM 09/10/2021 2:45 AM Full Code 06/13/2021 2:58 PM 06/20/2021 5:39 PM Full Code 06/06/2021 7:19 PM 06/12/2021 4:03 PM Full Code 06/03/2021 11:00 AM 06/04/2021 2:50 AM Full Code 05/29/2021 7:40 AM 06/01/2021 4:47 PM Healthcare Agents on File Name Relationship Healthcare Agent Relationshi p Communication Mary Baldetti Spouse Primary Decision Maker Jeff Baldetti Child Secondary Decision Make r Healthcare Agents on File Name Relationship Healthcare Agent [employer] p Communication Mary Baldetti Spouse Primary Decision Maker Jeff Baldetti Child Secondary Decision Make r Healthcare Agents on File Name Relationship Healthcare Agent [employer] p Communication Mary Baldetti Spouse Primary Decision Maker Jeff Baldetti Child Secondary Decision Make r Healthcare Agents on File Name Relationship Healthcare Agent [employer] p Communication Mary Baldetti Spouse Primary Decision Maker Jeff Baldetti Child Secondary Decision Make r Healthcare Agents on File Name Relationship Healthcare Agent [employer] Communication Mary Baldetti Spouse Primary Decision Maker Jeff Baldetti Child Secondary Decision Make r Healthcare Agents on File Name Relationship Healthcare Agent [employer] Communication Mary Baldetti Spouse Primary Decision Maker Jeff Baldetti Child Secondary Decision Make r Healthcare Agents on File Name Relationship Healthcare Agent Relationshi p Communication Mary Baldetti Spouse Primary Decision Maker Jeff Baldetti Child Secondary Decision Make r Healthcare Agents on File Name Relationship Healthcare Agent Relationshi p Communication Mary Baldetti Spouse Primary Decision Maker [phone] (Home) Jeff Baldetti Child Secondary Decision Make r Healthcare Agents on File Name Relationship Healthcare Agent Relationshi p Communication Mary Baldetti Spouse Primary Decision Maker [phone] (Home) Jeff Baldetti Child Secondary Decision Make r Healthcare Agents on File Name Relationship Healthcare Agent Relationshi p Communication Mary Baldetti Spouse Primary Decision Maker [phone] (Home) Jeff Baldetti Child Secondary Decision Make r Healthcare Agents on File Name Relationship Healthcare Agent Relationshi p Communication Mary Baldetti Spouse Primary Decision Maker [phone] (Home) Jeff Baldetti Child Secondary Decision Make r Healthcare Agents on File Name Relationship Healthcare Agent Relationshi p Communication Mary Baldetti Spouse Primary Decision Maker Jeff Baldetti Child Secondary Decision Make r Healthcare Agents on File Name Relationship Healthcare Agent Relationshi p Communication Mary Baldetti Spouse Primary Decision Maker [phone] (Home) Jeff Baldetti Child Secondary Decision Make r Healthcare Agents on File Name Relationship Healthcare Agent Relationshi p Communication Mary Baldetti Spouse Primary Decision Maker [phone] (Home) Jeff Baldetti Child Secondary Decision Make r Healthcare Agents on File Name Relationship Healthcare Agent Relationshi p Communication Mary Baldetti Spouse Primary Decision Maker [phone] (Home) Jeff Baldetti Child Secondary Decision Make r Healthcare Agents on File Name Relationship Healthcare Agent Relationshi p Communication Mary Baldetti Spouse Primary Decision Maker Jeff Baldetti Child Secondary Decision Make r Advance Directive Response Recorded Date/ Time Advance Directives No February 29, 2020 5:43pm Healthcare Agents on File Name Relationship Healthcare Agent Relationshi p Communication Mary Baldetti Spouse Primary Decision Maker Jeff Baldetti Child Secondary Decision Make r Healthcare Agents on File Name Relationship Healthcare Agent Relationshi p Communication Mary Baldetti Spouse Primary Decision Maker Jeff Baldetti Child Secondary Decision Make r Healthcare Agents on File Name Relationship Healthcare Agent Relationshi p Communication Mary Baldetti Spouse Primary Decision Maker Jeff Baldetti Child Secondary Decision Make r Healthcare Agents on File Name Relationship Healthcare Agent Relationshi p Communication Mary Baldetti Spouse Primary Decision Maker Jeff Baldetti Child Secondary Decision Make r Healthcare Agents on File Name Relationship Healthcare Agent Relationshi p Communication Mary Baldetti Spouse Primary Decision Maker Jeff Baldetti Child Secondary Decision Make r Healthcare Agents on File Name Relationship Healthcare Agent Relationshi p Communication Mary Baldetti Spouse Primary Decision Maker Jeff Baldetti Child Secondary Decision Make r Healthcare Agents on File Name Relationship Healthcare Agent Relationshi p Communication Mary Baldetti Spouse Primary Decision Maker Jeff Baldetti Child Secondary Decision Make r Healthcare Agents on File Name Relationship Healthcare Agent Relationshi p Communication Mary Baldetti Spouse Primary Decision Maker Jeff Baldetti Child Secondary Decision Make r Healthcare Agents on File Name Relationship Healthcare Agent Relationship Communication Mary Baldetti Spouse Primary Decision Maker Jeff Baldetti Child Secondary Decision Make r Healthcare Agents on File Name Relationship Healthcare Agent Relationship Communication Mary Baldetti Spouse Primary Decision Maker Jeff Baldetti Child Secondary Decision Make r Healthcare Agents on File Name Relationship Healthcare Agent Relationship Communication Mary Baldetti Spouse Primary Decision Maker Jeff Baldetti Child Secondary Decision Make r Latest Code Status on File Code Status Date Activated Date Inactivated Comments Full Code 07/15/2022 10:50 AM Full Code 09/09/2021 11:16 AM 09/10/2021 2:45 AM Healthcare Agents on File Name Relationship Healthcare Agent Relationship Communication Mary Baldetti Spouse Primary Decision Maker Jeff Baldetti Child Secondary Decision Make r Latest Code Status on File Code Status Date Activated Date Inactivated Comments Full Code 07/15/2022 10:50 AM 07/15/2022 5:34 PM Full Code 09/09/2021 11:16 AM 09/10/2021 2:45 AM Healthcare Agents on File Name Relationship Healthcare Agent Relationship Communication Mary Baldetti Spouse Primary Decision Maker Jeff Baldetti Child Secondary Decision Make r Healthcare Agents on File Name Relationship Healthcare Agent Relationship Communication Mary Baldetti Spouse Primary Decision Maker Jeff Baldetti Child Secondary Decision Make r Latest Code Status on File Code Status Date Activated Date Inactivated Comments Full Code 07/15/2022 10:50 AM 07/15/2022 5:34 PM Code Status History Code Status Date Activated Date Inactivated Comments Full Code 09/09/2021 11:16 AM 09/10/2021 2:45 AM Full Code 06/13/2021 2:58 PM 06/20/2021 5:39 PM Full Code 06/06/2021 7:19 PM 06/12/2021 4:03 PM Full Code 06/03/2021 11:00 AM 06/04/2021 2:50 AM Healthcare Agents on File Name Relationship Healthcare Agent Relationship Communication Mary Baldetti Spouse Primary Decision Maker Jeff Baldetti Child Secondary Decision Make r Healthcare Agents on File Name Relationship Healthcare Agent Relationship Communication Mary Baldetti Spouse Primary Decision Maker Jeff Baldetti Child Secondary Decision Make r Healthcare Agents on File Name Relationship Healthcare Agent Relationship Communication Mary Baldetti Spouse Primary Decision Maker Jeff Baldetti Child Secondary Decision Make r Healthcare Agents on File Name Relationship Healthcare Agent Relationship Communication Mary Baldetti Spouse Primary Decision Maker Jeff Baldetti Child Secondary Decision Make r Healthcare Agents on File Name Relationship Healthcare Agent Relationship Communication Mary Baldetti Spouse Primary Decision Maker Jeff Baldetti Child Secondary Decision Make r Healthcare Agents on File Name Relationship Healthcare Agent Relationship Communication Mary Baldetti Spouse Primary Decision Maker Jeff Baldetti Child Secondary Decision Make r Healthcare Agents on File Name Relationship Healthcare Agent Relationship Communication Mary Baldetti Spouse Primary Decision Maker Jeff Baldetti Child Secondary Decision Make r Healthcare Agents on File Name Relationship Healthcare Agent Relationship Communication Mary Baldetti Spouse Primary Decision Maker Jeff Baldetti Child Secondary Decision Make r Healthcare Agents on File Name Relationship Healthcare Agent Relationship Communication Mary Baldetti Spouse Primary Decision Maker Jeff Baldetti Child Secondary Decision Make r Healthcare Agents on File Name Relationship Healthcare Agent Relationship Communication Mary Baldetti Spouse Primary Decision Maker Jeff Baldetti Child Secondary Decision Make r Healthcare Agents on File Name Relationship Healthcare Agent Relationship Communication Mary Baldetti Spouse Primary Decision Maker Jeff Baldetti Child Secondary Decision Make r Healthcare Agents on File Name Relationship Healthcare Agent Relationship Communication Mary Baldetti Spouse Primary Decision Maker Jeff Baldetti Child Secondary Decision Make r Latest Code Status on File Code Status Date Activated Date Inactivated Comments Full Code 07/15/2022 10:50 AM 07/15/2022 5:34 PM Code Status History Code Status Date Activated Date Inactivated Comments Full Code 09/09/2021 11:16 AM 09/10/2021 2:45 AM Full Code 06/13/2021 2:58 PM 06/20/2021 5:39 PM Full Code 06/06/2021 7:19 PM 06/12/2021 4:03 PM Full Code 06/03/2021 11:00 AM 06/04/2021 2:50 AM Healthcare Agents on File Name Relationship Healthcare Agent Relationship Communication Mary Kerr Spouse Primary Decision Maker Jeff Kerr Child Secondary Decision Make r Healthcare Agents on File Name Relationship Healthcare Agent Relationship Communication Mary Kerr Spouse Primary Decision Maker Jeff Kerr Child Secondary Decision Make r Latest Code Status on File Code Status Date Activated Date Inactivated Comments Full Code 11/03/2023 7:01 AM Code Status History Code Status Date Activated Date Inactivated Comments Full Code 07/15/2022 10:50 AM 07/15/2022 5:34 PM Full Code 09/09/2021 11:16 AM 09/10/2021 2:45 AM Full Code 06/13/2021 2:58 PM 06/20/2021 5:39 PM Full Code 06/06/2021 7:19 PM 06/12/2021 4:03 PM Healthcare Agents on File Name Relationship Healthcare Agent Relationship Communication Mary Kerr Spouse Primary Decision Maker Jeff Kerr Child Secondary Decision Make r Latest Code Status on File Code Status Date Activated Date Inactivated Comments Full Code 11/03/2023 7:01 AM 11/03/2023 9:46 AM Code Status History Code Status Date Activated Date Inactivated Comments Full Code 07/15/2022 10:50 AM 07/15/2022 5:34 PM Full Code 09/09/2021 11:16 AM 09/10/2021 2:45 AM Full Code 06/13/2021 2:58 PM 06/20/2021 5:39 PM Full Code 06/06/2021 7:19 PM 06/12/2021 4:03 PM Healthcare Agents on File Name Relationship Healthcare Agent Relationship Communication Mary Kerr Spouse Primary Decision Maker Jeff Kerr Child Secondary Decision Make r Healthcare Agents on File Name Relationship Healthcare Agent Relationship Communication Mary Kerr Spouse Primary Decision Maker Jeff Kerr Child Secondary Decision Make r Healthcare Agents on File Name Relationship Healthcare Agent Relationship Communication Mary Kerr Spouse Primary Decision Maker Jeff Kerr Child Secondary Decision Make r Latest Code Status on File Code Status Date Activated Date Inactivated Comments Full Code 12/21/2023 7:56 AM Code Status History Code Status Date Activated Date Inactivated Comments Full Code 11/03/2023 7:01 AM 11/03/2023 9:46 AM Full Code 07/15/2022 10:50 AM 07/15/2022 5:34 PM Full Code 09/09/2021 11:16 AM 09/10/2021 2:45 AM Full Code 06/13/2021 2:58 PM 06/20/2021 5:39 PM Healthcare Agents on File Name Relationship Healthcare Agent Relationship Communication Mary Kerr Spouse Primary Decision Maker Jeff Kerr Child Secondary Decision Make r Date Activated Date Inactivated Comments 12/21/2023 7:56 AM 12/21/2023 6:08 PM Date Activated Date Inactivated Comments 11/03/2023 7:01 AM 11/03/2023 9:46 AM Date Activated Date Inactivated Comments 07/15/2022 10:50 AM 07/15/2022 5:34 PM Date Activated Date Inactivated Comments 09/09/2021 11:16 AM 09/10/2021 2:45 AM Date Activated Date Inactivated Comments 06/13/2021 2:58 PM 06/20/2021 5:39 PM Healthcare Agents on File Name Relationship Healthcare Agent Relationship Communication Mary Conleyi Spouse Primary Decision Maker Jeff Conleyi Child Secondary Decision Make r Documents on File Type Date Recorded Patient Digital Sales Representative Expl anation ACP-Advance Directive 02/25/2024 4:17 PM D POAHC and Living Will 02-25-2024 Date Activated Date Inactivated Comments 02/24/2024 3:27 PM Date Activated Date Inactivated Comments 12/21/2023 7:56 AM 12/21/2023 6:08 PM Date Activated Date Inactivated Comments 11/03/2023 7:01 AM 11/03/2023 9:46 AM Date Activated Date Inactivated Comments 07/15/2022 10:50 AM 07/15/2022 5:34 PM Date Activated Date Inactivated Comments 09/09/2021 11:16 AM 09/10/2021 2:45 AM Healthcare Agents on File Name Relationship Healthcare Agent Relationship Communication Mary Conleyi Spouse Primary Decision Maker Jeff Agrawaltti Child Secondary Decision Make r Stepdaya Mccarthydetti Child Supplemental (Ot her) Decision Maker Date Activated Date Inactivated Comments 02/24/2024 3:27 PM 02/27/2024 6:22 PM Healthcare Agents on File Name Relationship Healthcare Agent Relationship Communication Mary Conleyi Spouse Primary Decision Maker Jeff Agrawaltti Child Secondary Decision Make r Stepdaya Baldetti Child Supplemental (Ot her) Decision Maker Healthcare Agents on File Name Relationship Healthcare Agent Relationship Communication Mary Baldetti Spouse Primary Decision Maker Jeff Baldetti Child Secondary Decision Make r Diego Conleyi Child Supplemental (Ot her) Decision Maker Healthcare Agents on File Name Relationship Healthcare Agent Relationship Communication Mary Kerr Spouse Primary Decision Maker Jeff Conleyi Child Secondary Decision Make r Diego Conleyi Child Supplemental (Ot her) Decision Maker Documents on File Type Date Recorded Patient Digital Sales Representative Expl anation ACP-Advance Directive 02/25/2024 4:17 PM D POAHC and Living Will 02-25-2024 Date Activated Date Inactivated Comments 02/24/2024 3:27 PM 02/27/2024 6:22 PM Date Activated Date Inactivated Comments 12/21/2023 7:56 AM 12/21/2023 6:08 PM Date Activated Date Inactivated Comments 11/03/2023 7:01 AM 11/03/2023 9:46 AM Date Activated Date Inactivated Comments 07/15/2022 10:50 AM 07/15/2022 5:34 PM Date Activated Date Inactivated Comments 09/09/2021 11:16 AM 09/10/2021 2:45 AM Healthcare Agents on File Name Relationship Healthcare Agent Relationship Communication Mary Kerr Spouse Primary Decision Maker Jeff Conleyi Child Secondary Decision Make r Diego Conleyi Child Supplemental (Ot her) Decision Maker Healthcare Agents on File Name Relationship Healthcare Agent Relationship Communication Mary Kerr Spouse Primary Decision Maker Jeff Conleyi Child Secondary Decision Make r Diego Mccarthydetti Child Supplemental (Ot her) Decision Maker Healthcare Agents on File Name Relationship Healthcare Agent Relationship Communication Mary Baldetti Spouse Primary Decision Maker Jeff Baldetti Child Secondary Decision Make r Stephn Baldetti Child Supplemental (Ot her) Decision Maker Healthcare Agents on File Name Relationship Healthcare Agent Relationship Communication Amry Baldetti Spouse Primary Decision Maker Jeff Baldetti Child Secondary Decision Make r Stephn Baldetti Child Supplemental (Ot her) Decision Maker Healthcare Agents on File Name Relationship Healthcare Agent Relationship Communication Mary Baldetti Spouse Primary Decision Maker Jeff Baldetti Child Secondary Decision Make r Stephn Baldetti Child Supplemental (Ot her) Decision Maker Advance Directive Response Recorded Date/ Time Advance Directives No February 29, 2020 4:43pm Healthcare Agents on File Name Relationship Healthcare Agent Relationship Communication Mary Baldetti Spouse Primary Decision Maker Jeff Baldetti Child Secondary Decision Make r Stephn Baldetti Child Supplemental (Ot her) Decision Maker Healthcare Agents on File Name Relationship Healthcare Agent Relationship Communication Mary Baldetti Spouse Primary Decision Maker Jeff Baldetti Child Secondary Decision Make r Stephn Baldetti Child Supplemental (Ot her) Decision Maker Healthcare Agents on File Name Relationship Healthcare Agent Relationship Communication Mary Baldetti Spouse Primary Decision Maker [phone] (Home) Jeff Baldetti Child Secondary Decision Make r Stephn Baldetti Child Supplemental (Ot her) Decision Maker Healthcare Agents on File Name Relationship Healthcare Agent Relationship Communication Mary Baldetti Spouse Primary Decision Maker [phone] (Home) Jeff Baldetti Child Secondary Decision Make r Stephn Baldetti Child Supplemental (Ot her) Decision Maker Healthcare Agents on File Name Relationship Healthcare Agent Relationship Communication Mary Baldetti Spouse Primary Decision Maker [phone] (Home) Jeff Baldetti Child Secondary Decision Make r Stephn Baldetti Child Supplemental (Ot her) Decision Maker Healthcare Agents on File Name Relationship Healthcare Agent Relationship Communication Mary Baldetti Spouse Primary Decision Maker [phone] (Home) Jeff Baldetti Child Secondary Decision Make r Stephn Baldetti Child Supplemental (Ot her) Decision Maker Healthcare Agents on File Name Relationship Healthcare Agent Relationship Communication Mary Baldetti Spouse Primary Decision Maker [phone] (Home) Jeff Baldetti Child Secondary Decision Make r Stephn Baldetti Child Supplemental (Ot her) Decision Maker Healthcare Agents on File Name Relationship Healthcare Agent Relationship Communication Mary Baldetti Spouse Primary Decision Maker Jeff Baldetti Child Secondary Decision Make r Stephn Baldetti Child Supplemental (Ot her) Decision Maker Healthcare Agents on File Name Relationship Healthcare Agent Relationship Communication Mary Baldetti Spouse Primary Decision Maker Jeff Baldetti Child Secondary Decision Make r Stephn Baldetti Child Supplemental (Ot her) Decision Maker Healthcare Agents on File Name Relationship Healthcare Agent Relationship Communication Mary Baldetti Spouse Primary Decision Maker [phone] (Home) Jeff Baldetti Child Secondary Decision Make r Stephn Baldetti Child Supplemental (Ot her) Decision Maker Healthcare Agents on File Name Relationship Healthcare Agent Relationship Communication Mary Baldetti Spouse Primary Decision Maker [phone] (Home) Jeff Baldetti Child Secondary Decision Make r Stephn Baldetti Child Supplemental (Ot her) Decision Maker Healthcare Agents on File Name Relationship Healthcare Agent Relationship Communication Mary Baldetti Spouse Primary Decision Maker [phone] (Home) Jeff Baldetti Child Secondary Decision Make r Stephn Baldetti Child Supplemental (Ot her) Decision Maker Healthcare Agents on File Name Relationship Healthcare Agent Relationship Communication Mary Balsherlyntti Spouse Primary Decision Maker Jeff Agrawaltti Child Secondary Decision Make r Diego Conleyi Child Supplemental (Ot her) Decision Maker Date Activated Date Inactivated Comments 11/11/2024 6:58 AM Date Activated Date Inactivated Comments 02/24/2024 3:27 PM 02/27/2024 6:22 PM Date Activated Date Inactivated Comments 12/21/2023 7:56 AM 12/21/2023 6:08 PM Date Activated Date Inactivated Comments 11/03/2023 7:01 AM 11/03/2023 9:46 AM Date Activated Date Inactivated Comments 07/15/2022 10:50 AM 07/15/2022 5:34 PM Healthcare Agents on File Name Relationship Healthcare Agent Relationship Communication Marylynda Agrawaltti Spouse Primary Decision Maker Jeff Agrawaltti Child Secondary Decision Make r Diego Conleyi Child Supplemental (Ot her) Decision Maker Date Activated Date Inactivated Comments 11/11/2024 6:58 AM 11/11/2024 12:12 PM Date Activated Date Inactivated Comments 02/24/2024 3:27 PM 02/27/2024 6:22 PM Date Activated Date Inactivated Comments 12/21/2023 7:56 AM 12/21/2023 6:08 PM Date Activated Date Inactivated Comments 11/03/2023 7:01 AM 11/03/2023 9:46 AM Date Activated Date Inactivated Comments 07/15/2022 10:50 AM 07/15/2022 5:34 PM Healthcare Agents on File Name Relationship Healthcare Agent Relationship Communication Mary Baldetti Spouse Primary Decision Maker Jeff Mccarthydetti Child Secondary Decision Make r Diego Conleyi Child Supplemental (Ot her) Decision Maker Healthcare Agents on File Name Relationship Healthcare Agent Relationship Communication Mary Kerr Spouse Primary Decision Maker Jeff Conleyi Child Secondary Decision Make r Diego Agrawaltti Child Supplemental (Ot her) Decision Maker Healthcare Agents on File Name Relationship Healthcare Agent Relationship Communication Mary Kerr Spouse Primary Decision Maker Jeff Conleyi Child Secondary Decision Make r Diego Conleyi Child Supplemental (Ot her) Decision Maker Reason for Referral Specialty Diagnoses / Procedures Referred By Contac t Referred To Contact Radiology Diagnoses Uricaciduria R82.998 (ICD-10-CM) - Uricaciduria Procedures CT ABDOMEN PELVIS WO CONTRAST Additional Contrast? None CHG CT SCAN,ABDOMENT AND PELVIS,W/O CONTRAST 49533 - CHG CT SCAN,ABDOMENT AND PELVIS,W/O CONTRAST Arabella Dyer PA-C [address] [place] [address] Referral ID Status Reason Start Date Expiration Date Visits Re quested Visits Authorized [id number] Closed 09/09/2021 10/24/2021 1 1 Specialty Diagnoses / Procedures Referred By Contac t Referred To Contact Radiology Diagnoses Incomplete bladder emptying Procedures US RENAL COMPLETE Arabella Dyer PA-C [address] [place] [address] [address] [place] [address] Referral ID Status Reason Start Date Expiration Date Visits Re quested Visits Authorized [id number] Closed 05/20/2022 05/20/2023 1 1 Specialty Diagnoses / Procedures Referred By Contac t Referred To Contact Cardiology Diagnoses BPH with obstruction/lower urinary tract symptoms Incomplete emptying of bladder Frequency of urination Urgency of micturition Procedures EKG 12 Lead Akira Ferrer MD [address] [facility] [place] [address] Referral ID Status Reason Start Date Expiration Date Visits Re quested Visits Authorized [id number] Open 05/30/2022 05/30/2023 1 1 Specialty Diagnoses / Procedures Referred By Bj t Referred To Contact Cardiology Diagnoses Preop cardiovascular exam ASHD (arteriosclerotic heart disease) S/P angioplasty with stent Lightheaded Chronic systolic congestive heart failure (HCC) Mixed hyperlipidemia CHRIS on CPAP Stage 3 chronic kidney disease, unspecified whether stage 3a or 3b CKD (HCC) Adenoma of left adrenal gland History of stroke Preop Cardiovascular Exam [Z01.810] Ashd (Arteriosclerotic Heart Disease) [I25.10] S/P Angioplasty With Stent [Z95.820] Lightheaded [R42] Chronic Systolic Congestive Heart Failure (Hcc) [I50.22] Mixed Hyperlipidemia [E78.2] Chris On Cpap [G47.33, Z99.89] Stage 3 Chronic Kidney Disease, Unspecified Whether Stage 3a Or 3b Ckd (Hcc) [N18.30] Adenoma Of Left Adrenal Gland [D35.02] History Of Stroke [Z86.73] Procedures Stress test, lexiscan CHG MYOCARDIAL SPECT MULTIPLE STUDIES 63534 - CHG MYOCARDIAL SPECT MULTIPLE STUDIES Alma Kan MD [address] [place] [phone] Referral ID Status Reason Start Date Expiration Date Visits Re quested Visits Authorized [id number] Closed 07/10/2022 08/24/2022 1 1 Specialty Diagnoses / Procedures Referred By Bj t Referred To Contact Cardiology Diagnoses Preop cardiovascular exam ASHD (arteriosclerotic heart disease) S/P angioplasty with stent Lightheaded Chronic systolic congestive heart failure (HCC) Mixed hyperlipidemia CHRIS on CPAP Stage 3 chronic kidney disease, unspecified whether stage 3a or 3b CKD (HCC) Adenoma of left adrenal gland History of stroke Preop Cardiovascular Exam [Z01.810] Ashd (Arteriosclerotic Heart Disease) [I25.10] S/P Angioplasty With Stent [Z95.820] Lightheaded [R42] Chronic Systolic Congestive Heart Failure (Hcc) [I50.22] Mixed Hyperlipidemia [E78.2] Chris On Cpap [G47.33, Z99.89] Stage 3 Chronic Kidney Disease, Unspecified Whether Stage 3a Or 3b Ckd (Hcc) [N18.30] Adenoma Of Left Adrenal Gland [D35.02] History Of Stroke [Z86.73] Procedures Echo 2D w doppler w color complete [facility] R-T 2D W/WOM-MODE COMPL SPEC&COLR D [id number] - [facility] E[facility] R-T 2D W/WOM-MODE COMPL SPEC&COLR D Alma Kan MD [address] [place] [address] Referral ID Status Reason Start Date Expiration Date V isits Requested Visits Authorized [id number] Authorized 07/10/2022 07/04/2023 3 3 Specialty Diagnoses / Procedures Referred By Bj fontenot Referred To Contact Thoracic Surgery / Cardiothoracic Surgery Diagnoses Coronary artery disease involving [place] heart with angina pectoris and documented spasm, unspecified vessel or lesion type ([facility]) [place] [address] [place] [address] Adrian Delgadillo MD [address] [facility] [address] [facility] [place] [address] Referral ID Status Reason Start Date Expiration Date V isits Requested Visits Authorized [id number] Open Specialty Services Required 12/21/2023 12/20/2024 1 1 Scheduling Instructions [facility] [place], Cardiovascular Surgery Comments The patient can be scheduled with any member of the group, including the provider with the first available appointments. Chief Complaint and Reason for Visit Chief Complaint Z95.820 I50.22 Chief Complaint Amb Documentation Amb Documentation 3 month follow up Reason for Visit ASHD (arteriosclerot ic heart disease) Cerebral atherosclerosis Chronic kidney disease Chronic venous insufficiency of lower extremity Elevated cholesterol Hyperparathyroidism Hypertension Type 2 diabetes mellitus with hyperglycemia Chief Complaint Wellness 3 month f/u Reason for Visit Cardiomyopathy, isch emic Cerebral atherosclerosis Chronic heart failure with preserved ejection fraction (HFpEF) Chronic venous insufficiency of lower extremity Foot ulceration Hypercholesterolemia Obstructive sleep apnea Primary hypertension Screening for colon cancer Stage 3b chronic kidney disease Type 2 diabetes mellitus with hyperglycemia Wellness examination Cardiomyopathy, ischemic Cerebral atherosclerosis Chronic heart failure with preserved ejection fraction (HFpEF) Chronic venous insufficiency of lower extremity Foot ulceration Hypercholesterolemia Obstructive sleep apnea Primary hypertension Stage 3b chronic kidney disease Type 2 diabetes mellitus with hyperglycemia Chief Complaint Admit Date 3 month f/u May 12, 2024 11:34am CC Adult Risk Stratification May 122023 12:00pm right neck and shoulder pain - HIGH RISK July 12, 2024 2:58pm Reason for Visit Admit Date Cardiomyopathy, ischemic May 12, 2024 11:34am Cerebral atherosclerosis May 12, 2024 11:34am Chronic heart failure with p reserved ejection fraction (HFpEF) May 12, 2024 11:34am Chronic venous insufficiency of lower ex tremity May 12, 2024 11:34am Diabetes mellitus with peripheral angiop athy May 12, 2024 11:34am Hypercholesterolemia May 12, 2024 11:34am Primary hypertension May 12, 2024 11:34am Stage 3b chronic kidney disease May 12, 2024 11:34am Type 2 diabetes mellitus with hyperglyce xavi May 12, 2024 11:34am Chief Complaint Admit Date right neck and shoulder pain - HIGH RISK July 12, 2024 2:58pm Amb Documentation August 01, 2024 9:3 6am TBH; BV f/u 3 month f/u-HIGH RISK August 05, 2024 1:25pm 6 week f/u-HIGH RISK September 21, 2024 2: 38pm Reason for Visit Admit Date Cervical spondylosis with radiculopathy July 12, 2024 2:58pm Neck pain on right side July 12, 2 025 2:58pm Type 2 diabetes mellitus with hyperglyce xavi July 12, 2024 2:58pm Cardiomyopathy, ischemic August 05 1:25pm Cerebral atherosclerosis August 05 1:25pm Chronic heart failure with p reserved ejection fraction (HFpEF) August 05, 2024 1:25pm Chronic venous insufficiency of lower ex tremity August 05, 2024 1:25pm Diabetes mellitus with peripheral angiop athy August 05, 2024 1:25pm Primary hypertension August 05, 2024 1: 25pm Stage 3b chronic kidney disease August 052024 1:25pm Type 2 diabetes mellitus with hyperglyce xavi August 05, 2024 1:25pm Cardiomyopathy, ischemic September 21 2:38pm Cerebral atherosclerosis September 21 2:38pm Chronic heart failure with p reserved ejection fraction (HFpEF) September 21, 2024 2:38pm Chronic venous insufficiency of lower ex tremity September 21, 2024 2:38pm Diabetes mellitus with peripheral angiop athy September 21, 2024 2:38pm Primary hypertension September 21, 2024 2: 38pm Stage 3b chronic kidney disease September 212024 2:38pm Type 2 diabetes mellitus with hyperglyce xavi September 21, 2024 2:38pm Chief Complaint Admit Date Medicare wellness December 23, 2024 1:5 3pm Reason for Visit Admit Date Cardiomyopathy, ischemic December 23 1:53pm Cerebral atherosclerosis December 23 1:53pm Chronic heart failure with p reserved ejection fraction (HFpEF) December 23, 2024 1:53pm Chronic venous insufficiency of lower ex tremity December 23, 2024 1:53pm Diabetes mellitus with peripheral angiop athy December 23, 2024 1:53pm Hypercholesterolemia December 23, 2024 1: 53pm Obstructive sleep apnea December 23, 2024 1:53pm Primary hypertension December 23, 2024 1: 53pm Screening PSA (prostate specific antigen ) December 23, 2024 1:53pm Stage 3b chronic kidney disease December 232024 1:53pm Type 2 diabetes mellitus with hyperglyce xavi December 23, 2024 1:53pm Welcome to Medicare preventive visit Dec 1:53pm Wellness examination December 23, 2024 1: 53pm Additional Source Comments (unrecognized sect ion and content) No Status Records FoundNo Status Records FoundNo Status Records FoundNo Status Records FoundNo Status Records FoundNo Status Records FoundNo Status Records FoundNo Status Records Found INFORMATION SOURCE (unrecogn ized section and content) DATE CREATED AUTHOR 08/30/2020 Baltazar Callaway [facility] DATE CREATED AUTHOR AUTHOR'S ORGANIZ ATION 06/24/2021 Priscilla Noriega spiaziza DATE CREATED AUTHOR AUTHOR'S ORGANIZ ATION 11/02/2022 [facility] DATE CREATED AUTHOR AUTHOR'S ORGANIZ ATION 11/14/2022 [facility] DATE CREATED AUTHOR AUTHOR'S ORGANIZ ATION 10/03/2024 [facility] DATE CREATED AUTHOR AUTHOR'S ORGANIZ ATION 10/23/2024 [facility] DATE CREATED AUTHOR AUTHOR'S ORGANIZ ATION 11/12/2024 [facility] DATE CREATED AUTHOR AUTHOR'S ORGANIZ ATION 12/30/2024 [facility] Reason for Visit (unrecogniz ed section and content) Specialty Diagnoses / Procedures Referred By Contac t Referred To Contact Sleep Center Diagnoses Obstructive sleep apnea (adult) (pediatric) Procedures WV POLYSOM 6/>YRS SLEEP 4/> ADDL INGA ATTND [facility] [address] [place] [address] [facility] [address] [place] [address] Referral ID Status Reason Start Date Expiration Date V isits Requested Visits Authorized [id number] Authorized 04/23/2021 04/24/2022 1 1 Specialty Diagnoses / Procedures Referred By Contac t Referred To Contact Radiology Diagnoses Uricaciduria R82.998 (ICD-10-CM) - Uricaciduria Procedures CT ABDOMEN PELVIS WO CONTRAST Additional Contrast? None CHG CT SCAN,ABDOMENT AND PELVIS,W/O CONTRAST 18813 - CHG CT SCAN,ABDOMENT AND PELVIS,W/O CONTRAST Arabella Dyer PA-C [address] [place] [address] [place] [id number] Referral ID Status Reason Start Date Expiration Date Visits Re quested Visits Authorized [id number] Closed 09/09/2021 10/24/2021 1 1 Specialty Diagnoses / Procedures Referred By Contac t Referred To Contact Cardiology Diagnoses Abnormal stress test Procedures Referral to Cardiac Cath Alma Kan MD [address] [place] [address] [place] [address] Referral ID Status Reason Start Date Expiration Date Visits Re quested Visits Authorized [id number] Closed 05/29/2021 11/24/2021 1 1 Specialty Diagnoses / Procedures Referred By Contac t Referred To Contact Radiology Diagnoses Incomplete bladder emptying Procedures US RENAL COMPLETE Arabella Dyer PA-C [address] [place] [address] Referral ID Status Reason Start Date Expiration Date Visits Re quested Visits Authorized [id number] Closed 05/20/2022 05/20/2023 1 1 Specialty Diagnoses / Procedures Referred By Contac t Referred To Contact Cardiology Diagnoses Preop cardiovascular exam ASHD (arteriosclerotic heart disease) S/P angioplasty with stent Lightheaded Chronic systolic congestive heart failure (HCC) Mixed hyperlipidemia CHRIS on CPAP Stage 3 chronic kidney disease, unspecified whether stage 3a or 3b CKD (HCC) Adenoma of left adrenal gland History of stroke Preop Cardiovascular Exam [Z01.810] Ashd (Arteriosclerotic Heart Disease) [I25.10] S/P Angioplasty With Stent [Z95.820] Lightheaded [R42] Chronic Systolic Congestive Heart Failure (Hcc) [I50.22] Mixed Hyperlipidemia [E78.2] Chris On Cpap [G47.33, Z99.89] Stage 3 Chronic Kidney Disease, Unspecified Whether Stage 3a Or 3b Ckd (Hcc) [N18.30] Adenoma Of Left Adrenal Gland [D35.02] History Of Stroke [Z86.73] Procedures Stress test, lexiscan CHG MYOCARDIAL SPECT MULTIPLE STUDIES 88252 - CHG MYOCARDIAL SPECT MULTIPLE STUDIES Alma Kan MD [address] [place] [address] Referral ID Status Reason Start Date Expiration Date Visits Re quested Visits Authorized [id number] Closed 07/10/2022 08/24/2022 1 1 Specialty Diagnoses / Procedures Referred By Contac t Referred To Contact Cardiology Diagnoses Preop cardiovascular exam ASHD (arteriosclerotic heart disease) S/P angioplasty with stent Lightheaded Chronic systolic congestive heart failure (HCC) Mixed hyperlipidemia CHRIS on CPAP Stage 3 chronic kidney disease, unspecified whether stage 3a or 3b CKD (HCC) Adenoma of left adrenal gland History of stroke Preop Cardiovascular Exam [Z01.810] Ashd (Arteriosclerotic Heart Disease) [I25.10] S/P Angioplasty With Stent [Z95.820] Lightheaded [R42] Chronic Systolic Congestive Heart Failure (Hcc) [I50.22] Mixed Hyperlipidemia [E78.2] Chris On Cpap [G47.33, Z99.89] Stage 3 Chronic Kidney Disease, Unspecified Whether Stage 3a Or 3b Ckd (Hcc) [N18.30] Adenoma Of Left Adrenal Gland [D35.02] History Of Stroke [Z86.73] Procedures Echo 2D w doppler w color complete WV ECHO TTHRC R-T 2D W/WOM-MODE COMPL SPEC&COLR D 82913 - WV ECHO TTHRC R-T 2D W/WOM-MODE COMPL SPEC&COLR D Alma Kan MD [address] [place] [address] Referral ID Status Reason Start Date Expiration Date V isits Requested Visits Authorized [id number] Authorized 07/10/2022 07/04/2023 3 3 Specialty Diagnoses / Procedures [facility] Referred To Contact Diagnoses 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, LOWER URINARY TRACT SYMPTOMS Procedures WV LASER VAPORIZATION OF PROSTATE FOR URINE FLOW CYSTOSCOPY TRANSURETHRAL RESECTION PROSTATE LASER-PVP GREENLIGHT Akira Ferrer MD [address] [facility], [address] [place] [address] [facility] [address] [place] [address] Referral ID Status Reason Start Date Expiration Date Visits Re quested Visits Authorized [id number] 1 1 Specialty Diagnoses / Procedures Referred By Contac t Referred To Contact Radiology Diagnoses Primary hyperparathyroidism (HCC) Hypercalcemia Essential (primary) hypertension Chronic kidney disease, stage II (mild) Procedures NM PARATHYORID W SPECT Iboaya, Benahili U, DO [address] [place] [address] Referral ID Status Reason Start Date Expiration Date Visits Re quested Visits Authorized [id number] Closed 01/15/2023 03/01/2023 1 1 Specialty Diagnoses / Procedures Referred By Contac t Referred To Contact Diagnoses BPH with obstruction/lower urinary tract symptoms BPH with obstruction/lower urinary tract symptoms [N40.1, N13.8] Procedures WV LASER VAPORIZATION OF PROSTATE FOR URINE FLOW CYSTOSCOPY TRANSURETHRAL RESECTION PROSTATE LASER-PVP Akira Nobles MD [address] [facility], [address] [place] [address] [facility] [address] [place] [address] Referral ID Status Reason Start Date Expiration Date Visits Re quested Visits Authorized [id number] 1 1 Specialty Diagnoses / Procedures Referred By Contac t Referred To Contact Diagnoses Abnormal stress test Chest pain CAD (coronary artery disease) Abnormal stress test [R94.39] Chest pain [R07.9] CAD (coronary artery disease) [I25.10] Procedures WV CATH PLMT L HRT & ARTS W/NJX & ANGIO IMG S&I Left heart cath / [place] [address] [facility] [address] [place] [address] [facility] [address] [place] [address] Referral ID Status Reason Start Date Expiration Date Visits Re quested Visits Authorized [id number] 1 1 Reason Comments Leg Swelling Both lower legs and ankles/feet. Patient noticed a few months ago and has progressively worsened.Does have hx of CHF, is taking diuretics. Was sent over by Wound Check Sores present on bot h bilateral feet. Specialty Diagnoses / Procedures Referred By Contac t Referred To Contact Diagnoses Bilateral lower leg cellulitis Edema of both lower extremities due to peripheral venous insufficiency Fred Villegas MD [address] [place] [address] [facility] [address] [place] [address] Referral ID Status Reason Start Date Expiration Date Visits Re quested Visits Authorized [id number] 1 1 Reason Comments Foot Pain C/O left foot pain t hat started around 3 am. Was just discharged from here with cellulitis of BLE. Pain is stabbing and shooting up the leg. Reason Comments Wound Care Piotr Kerr is a 63 y.o. male who presents for FUV wound care. Angiogram on 03/08/2024. BS [address] Pritchett 03/04/2024 SS13. Specialty Diagnoses / Procedures Referred By Contdiimtri t Referred To Contact Diagnoses Critical limb ischemia of both lower extremities (HCC) Procedures Vascular duplex lower extremity arteries bilateral Vascular duplex lower extremity arteries left Floyd Vee MD [address] [place] [address] [address] [place] [address] Referral ID Status Reason Start Date Expiration Date Visits Re quested Visits Authorized [id number] Open 03/16/2024 03/16/2025 1 1 Reason Comments Foot Ulcer Established pt prese nts today for wound check, left foot. Multiple blister formation on the foot. Pt currently on doxycycline. Foot appears to be red. Pt does have neuropathy, generally doesn't have much feeling in feet. There is swelling in the feet as well. Has been using mupirocin ointment, and washing feet at least once a day, also relates liquid drainage. PCP: Dr. Yarely ROLON 02/03/24, A1C: 7.4, BS: 203, SS: 13 Reason Comments Wound Care Piotr Kerr is a 63 y.o. male who presents for wound care. Patient continues Doxycycline, Augmentin and applying Bactroban daily. Patient had a Doppler done 02/15/24, with Dr. Duncan, is scheduled for Angiogram 03/08/2024. BS [address] Pritchett 02/03/2024 SS13 Reason Comments DM Foot Care Established pt prese nts today for DM nail care. Pt also relates several wounds BL feet, BL lower extremities. PCP: Dr. Yarely ROLON 05/12/24, A1C: 7.4, BS: , SS: 13 Reason Comments Wound Check Bilateral lower legs Reason Comments Abdominal Pain Patient states has n ot been feeling well for the past week. Patient states nauseated, abdominal with upset stomach. Reason Comments Wound Check Right great toe Reason Comments Wound Check Right great toe Reason Comments Nail care Piotr Kerr is a 64 y.o. male, Established pt presents today for diabetic nail care. Patient relates he is scheduled for Right great toe Amputation 11/11/2024. PCP: Dr. Pritchett Reason Comments Wound Check Right great toe ampu tation site, left 3rd toe Reason Comments Wound Check Right great toe, lef t toes Care Teams (unrecognized sec tion and content) Team Status: Active Member Role Status Dates Jorge Pritchett DO Primary Care Provider Active Team Status: Active Member Role Status Dates Jorge Pritchett DO Primary Care Provider Active Start: November 15, 2024 Jeremias Sullivan DO Attending Provider Active S tart: November 15, 2024 Team Status: Inactive Member Role Status Dates Jorge Pritchett DO Primary Care Provider Active Start: December 23, 2024 End: December 23, 2024 Jorge Pritchett DO Attending Provider Active Sta rt: December 23, 2024 End: December 23, 2024 Team Status: Active Member Role Status Dates DASHA Ahuja Primary Care Provider Active Team Status: Active Member Role Status Dates DASHA Ahuja Primary Care Provider Active Start: July 27, 2023 JANAK Beckwith Attending Provider Active Start : July 27, 2023 Team Status: Active Member Role Status Dates DASHA Ahuja Primary Care Provider Active Start: July 27, 2023 JANAK Spring Attending Provider Active St art: July 27, 2023 Team Status: Inactive Member Role Status Dates DASHA Ahuja Primary Care Provider Active Start: August 12, 2023 End: August 12, 2023 Jorge Pritchett DO Attending Provider Active Sta rt: August 12, 2023 End: August 12, 2023 Team Status: Inactive Member Role Status Dates DASHA Ahuja Primary Care Provider Active Jorge Pritchett DO Attending Provider Active Bladder Trimmer Relationship Specialty Start Date End Date Jorge PritchettDO [address] [place] [address] PCP - General Internal Medicine 04/17/21 Bladder Trimmer Relationship Specialty Start Date End Date Jorge Pritchett DO [address] [place] [address] PCP - General Internal Medicine 04/17/21 Bladder Trimmer Relationship Specialty Start Date End Date YarelyJorge DO [address] [place] [address] PCP - General Internal Medicine 04/17/21 Bladder Trimmer Relationship Specialty Start Date End Date Jorge Pritchett, DO [address] [place] [address] PCP - General Internal Medicine 04/17/21 Bladder Trimmer Relationship Specialty Start Date End Date Jorge Pritchett, DO [address] [place] [address] PCP - General Internal Medicine 04/17/21 Bladder Trimmer Relationship Specialty Start Date End Date Jorge Pritchett, DO [address] [place] [address] PCP - General Internal Medicine 04/17/21 Bladder Trimmer Relationship Specialty Start Date End Date Jorge Pritchett, DO [address] [place] [address] PCP - General Internal Medicine 04/17/21 Bladder Trimmer Relationship Specialty Start Date End Date Jorge Pritchett, DO [address] [place] [address] PCP - General Internal Medicine 04/17/21 Bladder Trimmer Relationship Specialty Start Date End Date Jorge Pritchett, DO [address] [place] [address] PCP - General Internal Medicine 04/17/21 Bladder Trimmer Relationship Specialty Start Date End Date Jorge Pritchett, DO [address] [place] [address] PCP - General Internal Medicine 04/17/21 Bladder Trimmer Relationship Specialty Start Date End Date Jorge Pritchett, DO [address] [place] [address] PCP - General Internal Medicine 04/17/21 Bladder Trimmer Relationship Specialty Start Date End Date Jorge Pritchett, DO [address] [place] [address] PCP - General Internal Medicine 04/17/21 Bladder Trimmer Relationship Specialty Start Date End Date Jorge Pritchett, DO [address] [facility] [place] [address] PCP - General Internal Medicine 04/17/21 Bladder Trimmer Relationship Specialty Start Date End Date Jorge Pritchett, DO [address] [facility] [place] [address] PCP - General Internal Medicine 04/17/21 Bladder Trimmer Relationship Specialty Start Date End Date Jorge Pritchett, DO [address] [facility] [place] [address] PCP - General Internal Medicine 04/17/21 Bladder Trimmer Relationship Specialty Start Date End Date Jorge Pritchett, DO [address] [facility] [place] [address] PCP - General Internal Medicine 04/17/21 Bladder Trimmer Relationship Specialty Start Date End Date Jorge Pritchett, DO [address] [facility] [place] [address] PCP - General Internal Medicine 04/17/21 Bladder Trimmer Relationship Specialty Start Date End Date Jorge Pritchett, DO [address] [facility] [place] [address] PCP - General Internal Medicine 04/17/21 Bladder Trimmer Relationship Specialty Start Date End Date Jorge Pritchett, DO [address] [facility] [place] [address] PCP - General Internal Medicine 04/17/21 Bladder Trimmer Relationship Specialty Start Date End Date Jorge Pritchett, DO [address] [facility] [place] [address] PCP - General Internal Medicine 04/17/21 Team Status: Inactive Member Role Status Dates Pia Douglass , MEEK-C Primary Care Provider Active Alma Kan MD Attending Provider Active Bladder Trimmer Relationship Specialty Start Date End Date Jorge Pritchett, DO [address] [facility] [place] [address] PCP - General Internal Medicine 04/17/21 Bladder Trimmer Relationship Specialty Start Date End Date Jorge Pritchett, DO [address] [place] [facility] [place] [address] PCP - General Internal Medicine 04/17/21 Bladder Trimmer Relationship Specialty Start Date End Date Jorge Pritchett, DO [address] [place] [facility] [place] [address] PCP - General Internal Medicine 04/17/21 Bladder Trimmer Relationship Specialty Start Date End Date Jorge Pritchett, DO [address] [place] [facility] [place] [address] PCP - General Internal Medicine 04/17/21 Bladder Trimmer Relationship Specialty Start Date End Date Jorge Pritchett, DO [address] [place] [facility] [place] [address] PCP - General Internal Medicine 04/17/21 Bladder Trimmer Relationship Specialty Start Date End Date Jorge Pritchett, DO [address] [place] [facility] [place] [address] PCP - General Internal Medicine 04/17/21 Bladder Trimmer Relationship Specialty Start Date End Date Jorge Pritchett, DO [address] [place] [facility] [place] [address] PCP - General Internal Medicine 04/17/21 Bladder Trimmer Relationship Specialty Start Date End Date Jorge Pritchett, DO [address] [place] [facility] [place] [address] PCP - General Internal Medicine 04/17/21 Bladder Trimmer Relationship Specialty Start Date End Date Jorge Pritchett, DO [address] [place] [address] PCP - General Internal Medicine 04/17/21 Bladder Trimmer Relationship Specialty Start Date End Date Jorge Pritchett, DO [address] [place] [address] PCP - General Internal Medicine 04/17/21 Bladder Trimmer Relationship Specialty Start Date End Date Jorge Pritchett, DO [address] [place] [address] PCP - General Internal Medicine 04/17/21 Bladder Trimmer Relationship Specialty Start Date End Date Jorge Pritchett, DO [address] [place] [address] PCP - General Internal Medicine 04/17/21 Bladder Trimmer Relationship Specialty Start Date End Date Jorge Pritchett, DO [address] [place] [address] PCP - General Internal Medicine 04/17/21 Bladder Trimmer Relationship Specialty Start Date End Date Jorge Pritchett, DO [address] [place] [address] PCP - General Internal Medicine 04/17/21 Bladder Trimmer Relationship Specialty Start Date End Date Jorge Pritchett, DO [address] [place] [address] PCP - General Internal Medicine 04/17/21 Bladder Trimmer Relationship Specialty Start Date End Date Jorge Pritchett, DO [address] [place] [address] PCP - General Internal Medicine 04/17/21 Bladder Trimmer Relationship Specialty Start Date End Date Jorge Pritchett, DO [address] [place] [address] PCP - General Internal Medicine 04/17/21 Bladder Trimmer Relationship Specialty Start Date End Date Yarely Jorge, DO [address] [place] [facility] [address] PCP - General Internal Medicine 04/17/21 Bladder Trimmer Relationship Specialty Start Date End Date Jorge Pritchett, DO [address] [place] [facility] [address] PCP - General Internal Medicine 04/17/21 Bladder Trimmer Relationship Specialty Start Date End Date Jorge Pritchett, DO [address] [place] [facility] [place] [address] PCP - General Internal Medicine 04/17/21 Bladder Trimmer Relationship Specialty Start Date End Date Jorge Pritchett DO [address] [place] [facility] [place] [address] PCP - General Internal Medicine 04/17/21 Bladder Trimmer Relationship Specialty Start Date End Date Jorge Pritchett DO [address] [place] [facility] [place] [address] PCP - General Internal Medicine 04/17/21 Bladder Trimmer Relationship Specialty Start Date End Date Jorge Pritchett DO [address] [place] [facility] [place] [address] PCP - General Internal Medicine 04/17/21 Bladder Trimmer Relationship Specialty Start Date End Date Jorge Pritchett DO [address] [place] [facility] [place] [address] PCP - General Internal Medicine 04/17/21 Bladder Trimmer Relationship Specialty Start Date End Date Jorge Pritchett DO [address] [facility] [place] [address] PCP - General Internal Medicine 04/17/21 Bladder Trimmer Relationship Specialty Start Date End Date Jorge Pritchett DO [address] [facility] [place] [address] PCP - General Internal Medicine 04/17/21 Bladder Trimmer Relationship Specialty Start Date End Date Jorge Pritchett DO [address] [place] [facility] [place] [address] PCP - General Internal Medicine 04/17/21 Bladder Trimmer Relationship Specialty Start Date End Date Jorge Pritchett DO [address] [place] [facility] [place] [address] PCP - General Internal Medicine 04/17/21 Team Status: Inactive Member Role Status Dates Jorge Pritchett DO Primary Care Provide r, Attending Provider Active Start: November 10, 2023 End: November 10, 2023 Team Status: Inactive Member Role Status Dates Jogre Pritchett DO Primary Care Provide r, Attending Provider Active Start: February 03, 2024 End: February 03, 2024 Bladder Trimmer Relationship Specialty Start Date End Date Jorge Pritchett DO [address] [facility] [place] [address] PCP - General Internal Medicine 04/17/21 Bladder Trimmer Relationship Specialty Start Date End Date Jorge Pritchett DO [address] [place] [facility] [place] [address] PCP - General Internal Medicine 04/17/21 Bladder Trimmer Relationship Specialty Start Date End Date Jorge Pritchett DO [address] [place] [facility] [place] [address] PCP - General Internal Medicine 04/17/21 Bladder Trimmer Relationship Specialty Start Date End Date Jorge Pritchett MD [address] [place] [facility] [place] [phone] PCP - General Internal Medicine 02/13/23 Bladder Trimmer Relationship Specialty Start Date End Date Jorge Pritchett MD [address] [place] [facility] [place] [address] PCP - General Internal Medicine 02/13/23 Bladder Trimmer Relationship Specialty Start Date End Date Jorge Pritchett DO [address] [place] [facility] [place] [address] PCP - General Internal Medicine 04/17/21 Bladder Trimmer Relationship Specialty Start Date End Date Jorge Pritchett DO [address] [place] [facility] [place] [address] PCP - General Internal Medicine 04/17/21 Bladder Trimmer Relationship Specialty Start Date End Date Jorge Pritchett MD [address] [place] [facility] [place] [address] PCP - General Internal Medicine 02/13/23 Bladder Trimmer Relationship Specialty Start Date End Date Jorge Pritcehtt MD [address] [place] [facility] [place] [address] PCP - General Internal Medicine 02/13/23 Bladder Trimmer Relationship Specialty Start Date End Date Jorge Pritchett DO [address] [place] [facility] [place] [address] PCP - General Internal Medicine 04/17/21 Bladder Trimmer Relationship Specialty Start Date End Date Jorge Pritchett MD [address] [place] [facility] [place] [address] PCP - General Internal Medicine 02/13/23 Bladder Trimmer Relationship Specialty Start Date End Date Jorge Pritchett DO [address] [place] [facility] [place] [address] PCP - General Internal Medicine 04/17/21 Bladder Trimmer Relationship Specialty Start Date End Date Jorge Pritchett DO [address] [place] [facility] [place] [address] PCP - General Internal Medicine 04/17/21 Bladder Trimmer Relationship Specialty Start Date End Date Jorge Pritchett DO [address] [place] [facility] [place] [address] PCP - General Internal Medicine 04/17/21 Team Status: Inactive Member Role Status Dates Jorge Pritchett DO Primary Care Provide r, Attending Provider Active Start: May 12, 2024 End: May 12, 2024 Team Status: Active Member Role Status Dates Jorge Pritchett DO Primary Care Provide r, Attending Provider Active Start: May 12, 2024 Team Status: Inactive Member Role Status Dates Jorge Pritchett DO Primary Care Provide r, Attending Provider Active Start: July 12, 2024 End: July 12, 2024 Bladder Trimmer Relationship Specialty Start Date End Date Jorge Pritchett DO [address] [place] [facility] [place] [address] PCP - General Internal Medicine 04/17/21 Bladder Trimmer Relationship Specialty Start Date End Date Jorge Pritchett DO [address] [place] [facility] [place] [address] PCP - General Internal Medicine 04/17/21 Bladder Trimmer Relationship Specialty Start Date End Date Yarely Jorge [address] [place] [facility] [place] [address] PCP - General Internal Medicine 04/17/21 Bladder Trimmer Relationship Specialty Start Date End Date Jorge Pritchett DO [address] [place] [facility] [place] [phone] PCP - General Internal Medicine 04/17/21 Bladder Trimmer Relationship Specialty Start Date End Date Jorge Pritchett DO [address] [place] [facility] [place] [phone] PCP - General Internal Medicine 04/17/21 Bladder Trimmer Relationship Specialty Start Date End Date Jorge Pritchett DO [address] [place] [facility] [place] [address] PCP - General Internal Medicine 04/17/21 Bladder Trimmer Relationship Specialty Start Date End Date Jorge Pritchett DO [address] [place] [facility] [place] [address] PCP - General Internal Medicine 04/17/21 Team Status: Active Member Role Status Dates Jorge Pritchett DO Primary Care Provider Active Start: July 30, 2024 Khang Cordero MD Attending Provider Active Start : July 30, 2024 Team Status: Active Member Role Status Dates Jorge Pritchett DO Primary Care Provider Active Start: August 01, 2024 Sherry Campbell CMA Attending Provider Active Start: August 01, 2024 Team Status: Active Member Role Status Dates Jorge Pritchett DO Primary Care Provide r, Attending Provider Active Start: August 02, 2024 Team Status: Inactive Member Role Status Dates Jorge Pritchett DO Primary Care Provide r, Attending Provider Active Start: August 05, 2024 End: August 05, 2024 Team Status: Inactive Member Role Status Dates Jorge Ball , DO Primary Care Provide r, Attending Provider Active Start: September 21, 2024 End: September 21, 2024 Bladder Trimmer Relationship Specialty Start Date End Date Jorge Pritchett DO [address] [place] [facility] [place] [address] PCP - General Internal Medicine 04/17/21 Bladder Trimmer Relationship Specialty Start Date End Date Jorge Pritchett DO [address] [place] [facility] [place] [address] PCP - General Internal Medicine 04/17/21 Bladder Trimmer Relationship Specialty Start Date End Date Jorge Pritchett DO [address] [place] [facility] [place] [address] PCP - General Internal Medicine 04/17/21 Bladder Trimmer Relationship Specialty Start Date End Date Jorge Pritchett DO [address] [place] [facility] [place] [address] PCP - General Internal Medicine 04/17/21 Bladder Trimmer Relationship Specialty Start Date End Date Jorge Pritchett DO [address] [place] [facility] [place] [address] PCP - General Internal Medicine 04/17/21 Bladder Trimmer Relationship Specialty Start Date End Date Jorge Pritcehtt DO [address] [place] [facility] [place] [address] PCP - General Internal Medicine 04/17/21 Bladder Trimmer Relationship Specialty Start Date End Date Jorge Pritchett DO [address] [place] [facility] [place] [phone] PCP - General Internal Medicine 02/13/23 Bladder Trimmer Relationship Specialty Start Date End Date Jorge Pritchett DO [address] [place] [facility] [place] [address] PCP - General Internal Medicine 02/13/23 Bladder Trimmer Relationship Specialty Start Date End Date Jorge Pritchett DO [address] [place] [address] PCP - General Internal Medicine 04/17/21 Bladder Trimmer Relationship Specialty Start Date End Date Jorge Pritchett DO [address] [place] [facility] [place] [address] PCP - General Internal Medicine 04/17/21 Bladder Trimmer Relationship Specialty Start Date End Date Jorge Pritchett DO [address] [place] [address] PCP - General Internal Medicine 04/17/21 Bladder Trimmer Relationship Specialty Start Date End Date Jorge Pritchett DO [address] [place] [address] PCP - General Internal Medicine 04/17/21 Ordered Prescriptions (unrec ognized section and content) Prescription Sig Dispensed Refills Start Date End Da te cyclobenzaprine (FLEXERIL) 10 MG tablet Take 1 tablet by mouth 3 times daily as needed for Muscle spasms 30 tablet 0 05/31/2021 06/10/2021 furosemide (LASIX) 40 MG tablet Take 1 tablet by mouth daily 60 tablet 3 06/01/2021 carvedilol (COREG) 3.125 MG tablet Take 1 tablet by mouth 2 times daily (with meals) 60 tablet 3 05/31/2021 nitroGLYCERIN (NITROSTAT) 0.4 MG SL tablet up to max of 3 total doses. If no relief after 1 dose, call 911. 25 tablet 3 05/31/2021 isosorbide mononitrate (IMDUR) 30 MG extended release tablet Take 1 tablet by mouth daily 30 tablet 3 06/01/2021 Prescription Sig Dispensed Refills Start Date End Da te ondansetron (ZOFRAN-ODT) 4 MG disintegrating tablet Take 1 tablet by mouth 3 times daily as needed for Nausea or Vomiting 21 tablet 02/27/2024 nitroGLYCERIN (NITROSTAT) 0.4 MG SL tablet up to max of 3 total doses. If no relief after 1 dose, call 911. 25 tablet 3 02/27/2024 cephALEXin (KEFLEX) 500 MG capsule Take 1 capsule by mouth 3 times daily for 7 days 21 capsule 02/27/2024 03/05/2024 furosemide (LASIX) 40 MG tablet Take 2 tablets by mouth daily 60 tablet 02/27/2024 Prescription Sig Dispense Quantity Refills Last Filled Start Date End Date cephALEXin (KEFLEX) 500 MG capsuleIndications :Infection of toe,Chronic ulcer of great toe of right foot with fat layer exposed (HCC),Osteomyeliti s of great toe of right foot (HCC) Take 1 capsule by mouth 2 times daily for 10 days 20 capsule 11/01/2024 Scheduled Active and Recently Administ ered Medications (unrecognized section and content) Medication Order 05/30/2021 05/31/2021 06/01/2021 amLODIPine (NORVASC) tablet 5 mg 5 mg, Oral, DAILY, First dose on Thu05/27/21 at 1645 0812 (Given - Provider: Kae Goodrich RN) 0819 (Given - Provider: Kae Goodrich RN) 0742 (Given - Provider: Jessica Arango, RN) aspirin EC tablet 81 mg 81 mg, Oral, DAILY, First dose on Thu05/27/21 at 1645, Do not crush or break. 0812 (Given - Provider: Kae Goodrich RN) 0819 (Given - Provider: Kae Goodrich RN) 0742 (Given - Provider: Jessica Arango, RN) carvedilol (COREG) tablet 3.125 mg 3.125 mg, Oral, 2 TIMES DAILY WITH MEALS, First dose on Thu05/29/21 at 0800, Administer with food to minimize the risk of orthostatic hypotension 0812 (Given - Provider: Kae Goodrich RN)1745 (Given - Provider: Kae Goodrich RN) 0819 (Given - Provider: aKe Goodrich RN)1641 (Given - Provider: Kae Goodrich RN) 0742 (Given - Provider: Jessica Arango RN)1700 (Due - Provider: Selena Mckeon RN) diphenhydrAMINE (BENADRYL) capsule 50 mg 50 mg, Oral, ONCE, On Thu05/29/21 at 0800, For 1 dose, One hour prior to procedure if allergic to dye. enoxaparin (LOVENOX) injection 40 mg 40 mg, SubCUTAneous, DAILY, First dose on Thu05/27/21 at 1645 0813 (Given - Provider: Kae Goodrich RN) 0818 (Given - Provider: Kae Goodrich RN) 0744 (Given - Provider: Jessica Arango RN) furosemide (LASIX) tablet 40 mg 40 mg, Oral, DAILY, First dose (after last modification) on Thu05/30/21 at 0900 0812 (Given - Provider: Kae Goodrich RN) 0819 (Not Given - Provider: Kae Goodrich RN - Reason: Patient/family refused) 0742 (Given - Provider: Jessica Arango RN) insulin glargine (LANTUS) injection vial 25 Units 25 Units, SubCUTAneous, 2 TIMES DAILY, First dose on Thu05/27/21 at 2100 0811 (Given - Provider: Kae Goodrich RN)2133 (Given - Provider: Ivy Yin RN) 0821 (Given - Provider: Kae Goodrich RN)2040 (Not Given - Provider: Yumiko Sarabia - Reason: Patient/family refused) 0745 (Given - Provider: Jessica Arango RN)2100 (Due - Provider: Selena Mckeon RN) insulin lispro (HUMALOG) injection vial 0-3 Units 0-3 Units, SubCUTAneous, NIGHTLY, First dose on Thu05/27/21 at 2100, If continuous tube feedings/TPN/NPO, give correction dose based on result, no reduction in dose. If eating or bolus tube feeding: Low Dose Bedtime Correction Algorithm Glucose: Dose: 70-139 No Insulin 140-249 1 Unit 250-349 2 Units 350 and above 3 Units 2133 (Given - Provider: Ivy Yin RN - Comment: 183) 2034 (Given - Provider: Yumiko Sarabia - Comment: 187) 2100 (Due - Provider: Selena Mckeon RN) insulin lispro (HUMALOG) injection vial 0-6 Units 0-6 Units, SubCUTAneous, 3 TIMES DAILY WITH MEALS, First dose on Thu05/27/21 at 1700, Low Dose Correction Algorithm Glucose: Dose: 70-139 No Insulin 140-199 1 Unit 200-249 2 Units 250-299 3 Units 300-349 4 Units 350-399 5 Units 400 and above 6 Units 0813 (Not Given - Provider: Kae Goodrich RN - Reason: Order parameters not met - Comment: fsbs [phone] (Not Given - Provider: Kae Goodrich RN - Reason: Order parameters not met - Comment: fsbs [phone] (Given - Provider: Kae Goodrich RN - Comment: fsbs 171) 0800 (Not Given - Provider: Kae Goodrich RN - Reason: Order parameters not met - Comment: [phone] (Given - Provider: Kae Goodrich RN)1637 (Given - Provider: Kae Goodrich RN - Comment: fsbs 181) 0744 (Given - Provider: Jessica Arango RN - Comment: [phone] (Given - Provider: Jessica Arango RN - Comment: FS [phone] (Due - Provider: Selena Mckeon RN) isosorbide mononitrate (IMDUR) extended release tablet 30 mg 30 mg, Oral, DAILY, First dose on Thu05/29/21 at 0900, Do not crush or chew. 0812 (Given - Provider: Kae Goodrich RN) 0819 (Given - Provider: Kae Goodrich RN) 0742 (Given - Provider: Jessica Arango RN) losartan (COZAAR) tablet 25 mg 25 mg, Oral, DAILY, First dose on Thu05/27/21 at 1645 0812 (Given - Provider: Kae Goodrich RN) 0819 (Given - Provider: Kae Goodrich RN) 0742 (Given - Provider: Jessica Arango RN) pravastatin (PRAVACHOL) tablet 10 mg 10 mg, Oral, DAILY, First dose on Thu05/27/21 at 1645 0812 (Given - Provider: Kae Goodrich RN) 0819 (Given - Provider: Kae Goodrich RN) 0742 (Given - Provider: Jessica Arango RN) sodium chloride flush 0.9 % injection 10 mL 10 mL, IntraVENous, EVERY 12 HOURS SCHEDULED (2 times per day), First dose on Thu05/27/21 at 2100 0812 (Given - Provider: Kae Goodrich RN)2133 (Given - Provider: Ivy Yin RN) 823 (Given - Provider: Kae Goodrich RN)2033 (Not Given - Provider: Yumiko Sarabia - Reason: Other) 075 (Given - Provider: Jessica Arango RN)2099 (Due - Provider: Selena Mckeon RN) sodium chloride flush 0.9 % injection 5-40 mL 5-40 mL, IntraVENous, EVERY 12 HOURS SCHEDULED (2 times per day), First dose on Thu05/29/21 at 0900, For Line Patency: Peripheral IV = 5 mL; Midline or Central Line = 10 mL/lumen. If following IV push medication, administer flush at same rate as the IV push. Flush volume is determined by type of infusion therapy being given. For non-viscous solutions use: Peripheral IV = 5 mL Midline or Central Line = 10 mL/lumen For viscous solutions (i.e. blood components, parenteral nutrition, contrast media, or after obtaining blood sample) use: Peripheral IV = 10 mL Midline or Central Line = 20 mL/lumen 0813 (Not Given - Provider: Kae Goodrich RN - Reason: Other)2133 (Given - Provider: Ivy Yin RN) 09 (Not Given - Provider: Kae Goodrich RN - Reason: Other)2114 (Given - Provider: Yumiko Sarabia) 075 (Not Given - Provider: Jessica Arango RN - Reason: Other - Comment: REPEAT)2099 (Due) tamsulosin (FLOMAX) capsule 0.4 mg 0.4 mg, Oral, EVERY EVENING, First dose on Thu05/27/21 at 1800, Do not crush or break. 1745 (Given - Provider: Kae Goodrich, MIGUE) 1641 (Given - Provider: Kae Goodrich, MIGUE) 1800 (Due - Provider: eSlena Mckeon RN) Continuous Medication Order 05/30/2021 05/31/2021 06/01/2021 0.9 % sodium chloride infusion IntraVENous, at 100 mL/hr, CONTINUOUS, Starting on Thu05/29/21 at 0800, Start IV infusion 1 hour prior to planned heart Catheterization. If the patient clearance is less than 60, Start normal saline infused at 3ml/kg/hour by ideal body weight for the first hour and then 1 mL/kg/hr until just prior to discharge for a maximum of 6 total hours post cath. PRN Medication Order 05/30/2021 05/31/2021 06/01/2021 0.9 % sodium chloride infusion 25 mL, IntraVENous, at 100 mL/hr, PRN, If patient receiving piggyback infusions without ordered maintenance IV fluids or with frequent/long duration piggyback infusions, Starting on Thu05/27/21 at 1618, Administer at the same rate as the piggyback being infused. 0.9 % sodium chloride infusion 25 mL, IntraVENous, at 100 mL/hr, PRN, If patient receiving piggyback infusions without ordered maintenance IV fluids or with frequent/long duration piggyback infusions, Starting on Thu05/29/21 at 0740, Administer at the same rate as the piggyback being infused. acetaminophen (TYLENOL) suppository 650 mg(Linked Group 1) 650 mg, Rectal, EVERY 6 HOURS PRN, Pain Mild (1-3), Fever, For temp greater than 100.4 F (38 C), Starting on Thu05/27/21 at 1618, Administer if oral route cannot be used. 0047 (See Alternative - Provider: Giuliano Berkowitz RN) 2359 (See Alternative - Provider: Yumiko Sarabia) 0741 (See Alternative - Provider: Jessica Arango RN) acetaminophen (TYLENOL) tablet 650 mg(Linked Group 1) 650 mg, Oral, EVERY 6 HOURS PRN, Pain Mild (1-3), Fever, For temp greater than 100.4 F (38 C), Starting on Thu05/27/21 at 1618, Maximum dose of acetaminophen is 4000 mg from all sources in 24 hours. 0047 (Given - Provider: Giuliano Berkowitz RN) 2359 (Given - Provider: Yumiko Sarabia) 0741 (Given - Provider: Jessica Arango RN) cyclobenzaprine (FLEXERIL) tablet 10 mg 10 mg, Oral, EVERY 6 HOURS PRN, Muscle spasms, Starting on Thu05/27/21 at 1946 1404 (Given - Provider: Kae Goodrich, MIGUE) 0951 (Given - Provider: Kae Goodrich RN)2035 (Given - Provider: Yumiko Sarabia) 0333 (Given - Provider: Yumiko Sarabia) dextrose 5 % solution 100 mL/hr, IntraVENous, PRN, Low blood sugar, Starting on Thu05/27/21 at 1618, Start infusion following administration of dextrose 50% or glucagon. dextrose 50 % IV solution 12.5 g, IntraVENous, PRN, Low blood sugar, Blood glucose less than 70 mg/dL and patient NOT ALERT or NPO., Starting on Thu05/27/21 at 1618, If patient does not respond within 5 minutes, repeat dose x1. Start D5W at 100 mL/hour until ordering provider can be reached. Repeat blood glucose in 15 minutes. If blood glucose is less than 70 mg/dL, repeat treatment and recheck blood glucose in 15 minutes x2. If using Glucostabilizer, dose as instructed per system. glucagon (rDNA) injection 1 mg 1 mg, IntraMUSCular, PRN, Low blood sugar, Blood glucose less than 70 mg/dL and patient NOT ALERT or NPO and does not have IV access., Starting on Thu05/27/21 at 1618, After administration, attempt intravenous access and start D5W at 100 mL/hr. Repeat blood glucose in 15 minutes x2 and notify provider. glucose (GLUTOSE) 40 % oral gel 15 g 15 g, Oral, PRN, Low blood sugar, Starting on Thu05/27/21 at 1618, If blood glucose less than 50 mg/dL and patient ALERT and TOLERATING PO, give 2 tubes glucose gel. If blood glucose less than 70 mg/dL and patient ALERT and TOLERATING PO, give 1 tube glucose gel. Repeat blood glucose in 15 minutes. If blood glucose is less than 70 mg/dL, repeat treatment and recheck blood glucose in 15 minutes x2 and notify provider. nitroGLYCERIN (NITROSTAT) SL tablet 0.4 mg 0.4 mg, SubLINGual, EVERY 5 MIN PRN, Chest pain, Starting on Thu05/29/21 at 0740, For 3 doses, Place 1 tablet under tongue upon chest pain, wait 5 minutes and may repeat up to 3 doses in 15 minutes. Do not crush or break. ondansetron (ZOFRAN) injection 4 mg(Linked Group 2) 4 mg, IntraVENous, EVERY 6 HOURS PRN, Nausea, Vomiting, Starting on Thu05/27/21 at 1618, Administer if oral route cannot be used. ondansetron (ZOFRAN-ODT) disintegrating tablet 4 mg(Linked Group 2) 4 mg, Oral, EVERY 8 HOURS PRN, Nausea, Vomiting, Starting on Thu05/27/21 at 1618 polyethylene glycol (GLYCOLAX) packet 17 g 17 g, Oral, DAILY PRN, Constipation, Starting on Thu05/27/21 at 1618, First line therapy for constipation sodium chloride flush 0.9 % injection 10 mL 10 mL, IntraVENous, PRN, Line Care, After every IV line use, Starting on Thu05/27/21 at 1618 sodium chloride flush 0.9 % injection 5-40 mL 5-40 mL, IntraVENous, PRN, Line Care, After every IV line use, Starting on Thu05/29/21 at 0740, For Line Patency: Peripheral IV = 5 mL; Midline or Central Line = 10 mL/lumen. If following IV push medication, administer flush at same rate as the IV push. Flush volume is determined by type of infusion therapy being given. For non-viscous solutions use: Peripheral IV = 5 mL Midline or Central Line = 10 mL/lumen For viscous solutions (i.e. blood components, parenteral nutrition, contrast media, or after obtaining blood sample) use: Peripheral IV = 10 mL Midline or Central Line = 20 mL/lumen Linked Groups Order Group 1: acetaminophen (TYLENOL) tablet 650 mgJump to med 650 mg, Oral, EVERY 6 HOURS PRN, Pain Mild (1-3), Fever, For temp greater than 100.4 F (38 C), Starting on Thu05/27/21 at 1618
Maximum dose of acetaminophen is 4000 mg from all sources in 24 hours.
Or acetaminophen (TYLENOL) suppository 650 mgJump to med 650 mg, Rectal, EVERY 6 HOURS PRN, Pain Mild (1-3), Fever, For temp greater than 100.4 F (38 C), Starting on Thu05/27/21 at 1618
Administer if oral route cannot be used.
Group 2: ondansetron (ZOFRAN-ODT) disintegrating tablet 4 mgJump to med 4 mg, Oral, EVERY 8 HOURS PRN, Nausea, Vomiting, Starting on Thu05/27/21 at 1618 Or ondansetron (ZOFRAN) injection 4 mgJump to med 4 mg, IntraVENous, EVERY 6 HOURS PRN, Nausea, Vomiting, Starting on Thu05/27/21 at 1618
Administer if oral route cannot be used.
Scheduled Medication Order 07/13/2022 07/14/2022 07/15/2022 acetaminophen (TYLENOL) tablet 650 mg (COMPLETED) 650 mg, Oral, ONCE, 1 dose, On Thu07/15/22 at 1115, Maximum dose of acetaminophen is 4000 mg from all sources in 24 hours., Pre-op (day of surgery) 1120 (Given - Provid er: Shalini Centeno RN) ceFAZolin (ANCEF) 2000 mg in 0.9% sodium chloride 100 mL IVPB (COMPLETED) 2,000 mg, IntraVENous, MANAGER DRIVE TO O.R., 1 dose, On Thu07/15/22 at 1115, Antimicrobial Indications: Surgical Prophylaxis, Administer within 1 hour prior to incision. Repeat in 2 hours after initial dose if still intra-op., Pre-op (day of surgery) 1247 (New Bag - Prov ider: Radha Oliva RN)1300 (Given - Provider: Celeste Valadez APRN - LITERACY EDUCATION PROFESSOR)1317 (Due: Stopped - Provider: Radha Oliva RN) dimenhyDRINATE (DRAMAMINE) tablet 50 mg (COMPLETED) 50 mg, Oral, ONCE, 1 dose, On Thu07/15/22 at 1115, Pre-op (day of surgery) 1120 (Given - Provid er: Shalini Centeno RN) gabapentin (NEURONTIN) capsule 100 mg (COMPLETED) 100 mg, Oral, ONCE, 1 dose, On Thu07/15/22 at 1115, Pre-op (day of surgery) 1120 (Given - Provid er: Shalini Centeno RN) Continuous Medication Order 07/13/2022 07/14/2022 07/15/2022 lactated ringers IV soln infusion IntraVENous, at 100 mL/hr, CONTINUOUS, Starting on Thu07/15/22 at 1115, Pre-op (day of surgery) 1131 (New Bag - Prov ider: Shalini Centeno RN)1248 (Paused - Provider: Celeste Valadez APRN - LITERACY EDUCATION PROFESSOR - Comment: Switch to gravity)1249 (Restarted - Provider: Celeste Valadez APRN - LITERACY EDUCATION PROFESSOR)1339 (Stopped - Provider: Celeste Valadez APRN - LITERACY EDUCATION PROFESSOR)1500 (Stopped - Provider: Julissa Campbell RN) PRN Medication Order 07/13/2022 07/14/2022 07/15/2022 lidocaine (XYLOCAINE) 2 % uro-jet (CANCELED) PRN, Starting on Thu07/15/22 at 1312, Intra-op 1312 (Given - Provid er: Akira Ferrer MD) Scheduled Medication Order 11/01/2023 11/02/2023 11/03/2023 acetaminophen (TYLENOL) tablet 650 mg (COMPLETED) 650 mg, Oral, ONCE, 1 dose, On Thu11/03/23 at 0730, Maximum dose of acetaminophen is 4000 mg from all sources in 24 hours., Pre-op (day of surgery) 0737 (Given - Provid er: Kim Vázquez RN) ceFAZolin (ANCEF) 3000 mg in sodium chloride 0.9% 100 mL IVPB 3,000 mg, IntraVENous, MANAGER DRIVE TO O.R., 1 dose, On Thu11/03/23 at 0730, Antimicrobial Indications: Surgical Prophylaxis, Administer within 1 hour prior to incision. Repeat in 2 hours after initial dose if still intra-op., Pre-op (day of surgery) 0730 (Due) dimenhyDRINATE (DRAMAMINE) tablet 50 mg (COMPLETED) 50 mg, Oral, ONCE, 1 dose, On Thu11/03/23 at 0730, Pre-op (day of surgery) 0737 (Given - Provid er: Kim Vázquez RN) Continuous Medication Order 11/01/2023 11/02/2023 11/03/2023 lactated ringers IV soln infusion IntraVENous, at 100 mL/hr, CONTINUOUS, Starting on Thu11/03/23 at 0730, Pre-op (day of surgery) 0740 (New Bag - Prov ider: Kim Vázquez RN) Scheduled Medication Order 12/19/2023 12/20/2023 12/21/2023 sodium chloride flush 0.9 % injection 5-40 mL 5-40 mL, IntraVENous, EVERY 12 HOURS SCHEDULED (2 times per day), First dose on Thu12/21/23 at 2100, Until Discontinued, For Line Patency: Peripheral IV = 5 mL; Midline or Central Line = 10 mL/lumen. If following IV push medication, administer flush at same rate as the IV push. Flush volume is determined by type of infusion therapy being given. For non-viscous solutions use: Peripheral IV = 5 mL Midline or Central Line = 10 mL/lumen For viscous solutions (i.e. blood components, parenteral nutrition, contrast media, or after obtaining blood sample) use: Peripheral IV = 10 mL Midline or Central Line = 20 mL/lumen, Recovery(Cath) 2100 (Due) Continuous Medication Order 12/19/2023 12/20/2023 12/21/2023 0.9 % sodium chloride infusion IntraVENous, at 75 mL/hr, CONTINUOUS, Starting on Thu12/21/23 at 0815, Patient to have 4 hours hydration prior to procedure, Pre-Procedure(Cath) 0817 (New Bag - Prov ider: Nesha Campoverde RN)1330 (Stopped - Provider: Nesha Campoverde RN) 0.9 % sodium chloride infusion IntraVENous, at 75 mL/hr, CONTINUOUS, Starting on Thu12/21/23 at 1330, For 4 hours, Recovery(Cath) 1330 (New Bag - Prov ider: Nesha Campoverde RN)1536 (Stopped - Provider: Nesha Campoverde RN) PRN Medication Order 12/19/2023 12/20/2023 12/21/2023 0.9 % sodium chloride infusion IntraVENous, at 5-250 mL/hr, PRN, if patient receiving piggyback infusions and maintenance fluids are not ordered OR KVO fluids to protect IV site / prevent frequent line interruptions/ long duration, Starting on Thu12/21/23 at 1313, For piggyback infusion, administer at same rate as piggyback for a total of 25 mL. Enter 25 mL into dose field and piggyback rate into rate field of order. If piggyback is infusing at a rate less than 100 mL/hr, enter 25 mL into dose field and 100 mL/hr into rate field of order. For KVO fluids, enter rate of 20 mL/hr or less into rate field of order., Recovery(Cath) acetaminophen (TYLENOL) tablet 650 mg 650 mg, Oral, EVERY 4 HOURS PRN, Starting on Thu12/21/23 at 1313, Until Discontinued, Pain Mild (1-3), Fever, Fever >100.5 F (38 C), Maximum dose of acetaminophen is 4000 mg from all sources in 24 hours., Recovery(Cath) fentaNYL (SUBLIMAZE) injection (CANCELED) PRN, Starting on Thu12/21/23 at 1231, Until Thu12/21/23 at 1252, Intra-procedure(Cath) 1231 (Given - Provid er: Bill Nichols RN) heparin (porcine) 4,000 Units, nitroGLYCERIN 300 mcg, verapamil (ISOPTIN) 2.5 mg 6.5 mL syringe (CANCELED) PRN, Starting on Thu12/21/23 at 1235, Intra-procedure(Cath) 1235 (Given - Provid er: Tigist Correa MD) iopamidol (ISOVUE-370) 76 % injection (CANCELED) PRN, Starting on Thu12/21/23 at 1248, Until Thu12/21/23 at 1252, Intra-procedure(Cath) 1248 (Given - Provid er: Tigist Correa MD) lidocaine 1 % injection (CANCELED) PRN, Starting on Thu12/21/23 at 1233, Until Thu12/21/23 at 1252, Intra-procedure(Cath) 1233 (Given - Provid er: Tigist Correa MD) midazolam (VERSED) injection (CANCELED) PRN, Starting on Thu12/21/23 at 1230, Until Thu12/21/23 at 1252, Intra-procedure(Cath) 1230 (Given - Provid er: Bill Nichols RN) sodium chloride flush 0.9 % injection 5-40 mL 5-40 mL, IntraVENous, PRN, Starting on Thu12/21/23 at 1313, Until Discontinued, Line Care, After every IV line use, For Line Patency: Peripheral IV = 5 mL; Midline or Central Line = 10 mL/lumen. If following IV push medication, administer flush at same rate as the IV push. Flush volume is determined by type of infusion therapy being given. For non-viscous solutions use: Peripheral IV = 5 mL Midline or Central Line = 10 mL/lumen For viscous solutions (i.e. blood components, parenteral nutrition, contrast media, or after obtaining blood sample) use: Peripheral IV = 10 mL Midline or Central Line = 20 mL/lumen, Recovery(Cath) Scheduled Medication Order 02/25/2024 02/26/2024 02/27/2024 allopurinol (ZYLOPRIM) tablet 100 mg 100 mg, Oral, DAILY, First dose on Thu02/24/24 at 1545, Until Discontinued 0842 (Given - Provider: Chikis Carvajal RN) 0822 (Given - Provider: Citlali Anders RN) 0830 (Given - Provider: Froy Reagan RN) ascorbic acid (VITAMIN C) tablet 1,000 mg 1,000 mg, Oral, DAILY, First dose on Thu02/24/24 at 1545, Until Discontinued 0842 (Given - Provider: Chikis Carvajal RN) 0821 (Given - Provider: Citlali Anders RN) 0831 (Given - Provider: Froy Reagan RN) aspirin EC tablet 81 mg 81 mg, Oral, DAILY, First dose on Thu02/24/24 at 1545, Until Discontinued, Do not crush or break. 0842 (Given - Provider: Chikis Carvajal RN) 0822 (Given - Provider: Citlali Anders RN) 0830 (Given - Provider: Froy Reagan RN) calcitRIOL (ROCALTROL) capsule 0.25 mcg 0.25 mcg, Oral, THREE TIMES WEEKLY (THURSDAY, THURSDAY, THURSDAY) (Once per day on Thursday), First dose on Thu02/24/24 at 2200, Until Discontinued 0 (Given - Provider: Sloan Arango RN) carvedilol (COREG) tablet 12.5 mg 12.5 mg, Oral, 2 TIMES DAILY WITH MEALS, First dose on Thu02/24/24 at 1700, Until Discontinued, Administer with food to minimize the risk of orthostatic hypotension 0842 (Given - Provider: Chikis Carvajal RN)1624 (Given - Provider: Chikis Carvajal RN) 0822 (Given - Provider: Citlali Anders RN)1611 (Given - Provider: Citlali Anders RN) 0830 (Given - Provider: Froy Reagan RN)1700 (Due) cinacalcet (SENSIPAR) tablet 60 mg (Patient Supplied) 60 mg, Oral, DAILY, First dose on Thu02/25/24 at 1800, Until Discontinued, Do not crush or break. 1625 (Given - Provider: Chikis Carvajal RN) 0827 (Given - Provider: Citlali Anders RN) 0834 (Given - Provider: Froy Reagan RN) clopidogrel (PLAVIX) tablet 75 mg 75 mg, Oral, DAILY, First dose on Thu02/24/24 at 1545, Until Discontinued 0842 (Given - Provider: Chikis Carvajal RN) 0821 (Given - Provider: Citlali Anders RN) 0830 (Given - Provider: Froy Reagan RN) empagliflozin (JARDIANCE) tablet 10 mg 10 mg, Oral, DAILY, First dose on Thu02/24/24 at 1545, Until Discontinued, Indication of Use: Chronic kidney disease, Type 2 diabetes, Note: Discontinuation of SGLT2 inhibitor therapy 3 days prior to surgery or major procedures is recommended given the risk for euglycemic diabetic ketoacidosis. 0841 (Given - Provider: Chikis Carvajal RN) 0821 (Given - Provider: Citlali Anders RN) 0838 (Given - Provider: Froy Reagan RN) enoxaparin Sodium (LOVENOX) injection 30 mg 30 mg, SubCUTAneous, 2 TIMES DAILY, First dose (after last reorder) on Thu02/24/24 at 2100, Until Discontinued, Indication of Use: Prophylaxis-DVT/PE, Administer by deep subCUTAneous injection with pt lying down. Alternate injection sites on abdominal wall. Do not rub site after injection. Check with provider prior to any invasive procedure. 0841 (Given - Provider: Chikis Carvajal RN)2019 (Given - Provider: Paradise Albert, MIGUE) 821 (Given - Provider: Citlali Anders RN)2122 (Given - Provider: Sloan Arango RN) 828 (Given - Provider: Froy Reagan RN)2100 (Due) furosemide (LASIX) injection 80 mg (CANCELED) 80 mg, IntraVENous, DAILY, First dose on Thu02/24/24 at 1545, Until Discontinued 08 (Given - Provider: Chikis Carvajal RN) 821 (Given - Provider: Citlali Anders RN) insulin glargine (LANTUS) injection vial 20 Units 20 Units, SubCUTAneous, 2 TIMES DAILY, First dose on Thu02/24/24 at 2100, Until Discontinued, Caution: Highly concentrated insulin. Long acting insulin: DO NOT HOLD without physician order. DO NOT MIX or dilute with any other insulin. 0841 (Given - Provider: Chikis Carvajal RN)2018 (Given - Provider: Paradise Albert RN) 824 (Given - Provider: Citlali Anders RN)2121 (Given - Provider: Sloan Arango RN) 829 (Given - Provider: Froy Reagan RN)2099 (Due) insulin lispro (HUMALOG,ADMELOG) injection vial 0-4 Units 0-4 Units, SubCUTAneous, 3 TIMES DAILY WITH MEALS, First dose on Thu02/24/24 at 1700, Until Discontinued, Corrective Low Dose Algorithm Glucose: Dose: 70-199 No Insulin 200-249 1 Unit 250-299 2 Units 300-349 3 Units Over 349 4 Units and notify physician 0702 (Not Given - Provider: Chikis Carvajal RN - Reason: Order parameters not met)1120 (Not Given - Provider: Chikis Carvajal RN - Reason: Order parameters not met)1625 (Given - Provider: Chikis Carvajal RN) 08 (Not Given - Provider: Citlali Anders RN - Reason: Order parameters not met)1150 (Given - Provider: Citlali Anders RN)1617 (Given - Provider: Citlali Anders RN) 08 (Given - Provider: Froy Reagan RN)1203 (Given - Provider: Froy Reagan RN)1700 (Due) insulin lispro (HUMALOG,ADMELOG) injection vial 0-4 Units 0-4 Units, SubCUTAneous, NIGHTLY, First dose on Thu02/24/24 at 2100, Until Discontinued, If continuous tube feedings/TPN/NPO, give correction dose based on result, no reduction in dose. If eating or bolus tube feeding: Corrective Bedtime Algorithm Glucose: Dose: 70-299 No Insulin 300-349 4 Units Over 349 4 Units and notify physician 2018 (Given - Provider: Paradise Albert RN) 2053 (Not Given - Provider: Sloan Arango RN - Reason: Order parameters not met - Comment: FSBG 245 02/26/24 194) 2099 (Due) magnesium oxide (MAG-OX) tablet 400 mg 400 mg, Oral, DAILY, First dose on Thu02/24/24 at 1545, Until Discontinued 0842 (Given - Provider: Chikis Carvajal RN) 0822 (Given - Provider: Citlali Anders RN) 0830 (Given - Provider: Froy Reagan, MIGUE) meropenem (MERREM) 1,000 mg in sodium chloride 0.9 % 100 mL IVPB (Awtp0Rae) 1,000 mg, IntraVENous, at 33.3 mL/hr, Administer over 180 Minutes, EVERY 8 HOURS, First dose on Thu02/24/24 at 1600, For 7 days 0054 (New Bag - Provider: Paradise Albert RN)0400 (Stopped - Provider: Paradise Albert RN)0904 (New Bag - Provider: Chikis Carvajal RN)1159 (Stopped - Provider: Chikis Carvajal RN)1629 (New Bag - Provider: Chikis Carvajal RN)1930 (Stopped - Provider: Paradise Albert RN)2333 (New Bag - Provider: Paradise Albert RN) 0233 (Stopped - Provider: Paradise Albert RN)0911 (New Bag - Provider: Citlali Anders RN)1251 (Stopped - Provider: Shirin Arango RN)1617 (New Bag - Provider: Citlali Anders RN)1917 (Stopped - Provider: Sloan Arango RN) 0058 (New Bag - Provider: Sloan Arango RN)0400 (Stopped - Provider: Sloan Arango RN)0814 (New Bag - Provider: Froy Reagan RN)1114 (Stopped - Provider: Froy Reagan RN)1600 (Due) metOLazone (ZAROXOLYN) tablet 2.5 mg 2.5 mg, Oral, EVERY , , , First dose (after last modification) on Thu02/25/24 at 2100, Until Discontinued 2013 (Given - Provider: Paradise Albert RN) 2100 (Due) mupirocin (BACTROBAN) 2 % ointment Topical, DAILY, First dose on Thu02/24/24 at 1545 0840 (Given - Provider: Chikis Carvajal RN - Comment: bilateral legs) 0825 (Given - Provider: Citlali Anders RN) 0835 (Given - Provider: Froy Reagan RN) potassium chloride (KLOR-CON M) extended release tablet 20 mEq 20 mEq, Oral, 2 TIMES DAILY WITH MEALS, First dose on Thu02/24/24 at 1700, Until Discontinued, Do not crush, chew, or suck on tablet. Tablet may also be broken in half and each half swallowed separately. 0842 (Given - Provider: Chikis Carvajal RN)1624 (Given - Provider: Chikis Carvajal RN) 0822 (Given - Provider: Citlali Anders RN)1611 (Given - Provider: Citlali Anders RN) 0830 (Given - Provider: Froy Reagan RN)1700 (Due) pravastatin (PRAVACHOL) tablet 40 mg 40 mg, Oral, DAILY, First dose on Thu02/24/24 at 1545, Until Discontinued 0842 (Given - Provider: Chikis Carvajal RN) 0821 (Given - Provider: Citlali Anders RN) 0831 (Given - Provider: Froy Reagan RN) sacubitril-valsartan (ENTRESTO) 49-51 MG per tablet 0.5 tablet 0.5 tablet, Oral, 2 TIMES DAILY, First dose on Thu02/24/24 at 2100, Until Discontinued 0842 (Given - Provider: Chikis Carvajal RN)2013 (Given - Provider: Paradise Albert RN) 08 (Given - Provider: Citlali Anders RN)2119 (Given - Provider: Sloan Arango, RN) 08 (Given - Provider: Froy Reagan, RN)2100 (Due) sodium chloride flush 0.9 % injection 5-40 mL 5-40 mL, IntraVENous, EVERY 12 HOURS SCHEDULED (2 times per day), First dose on Thu02/24/24 at 2100, Until Discontinued, For Line Patency: Peripheral IV = 5 mL; Midline or Central Line = 10 mL/lumen. If following IV push medication, administer flush at same rate as the IV push. Flush volume is determined by type of infusion therapy being given. For non-viscous solutions use: Peripheral IV = 5 mL Midline or Central Line = 10 mL/lumen For viscous solutions (i.e. blood components, parenteral nutrition, contrast media, or after obtaining blood sample) use: Peripheral IV = 10 mL Midline or Central Line = 20 mL/lumen 0840 (Given - Provider: Chikis Carvajal RN)2014 (Given - Provider: Paradise Albert RN) 08 (Given - Provider: Citlali Anders RN)2125 (Given - Provider: Sloan Arango, RN) 0833 (Given - Provider: Froy Reagan, RN)2100 (Due) tamsulosin (FLOMAX) capsule 0.4 mg 0.4 mg, Oral, DAILY, First dose on Thu02/24/24 at 1545, Until Discontinued, Do not crush or break. Give 30 minutes after a full meal to limit risk of orthostatic hypotension/falls. 0842 (Given - Provider: Chikis Carvajal RN) 08 (Given - Provider: Citlali Anders RN) 08 (Given - Provider: Froy Reagan, RN) PRN Medication Order 02/25/2024 02/26/2024 02/27/2024 0.9 % sodium chloride infusion IntraVENous, at 100 mL/hr, PRN, If patient receiving piggyback infusions without ordered maintenance IV fluids or with frequent/long duration piggyback infusions, Starting on Thu02/24/24 at 1527, Administer at the same rate as the piggyback being infused. acetaminophen (TYLENOL) suppository 650 mg(Linked Group 1) 650 mg, Rectal, EVERY 6 HOURS PRN, Starting on Thu02/24/24 at 1527, Until Discontinued, Pain Mild (1-3), Fever, For temp greater than 100.4 F (38 C), Administer if oral route cannot be used. 07 (See Alternative - Provider: Chikis Carvajal RN)142 (See Alternative - Provider: Chikis Carvajal RN) acetaminophen (TYLENOL) tablet 650 mg(Linked Group 1) 650 mg, Oral, EVERY 6 HOURS PRN, Starting on Thu02/24/24 at 1527, Until Discontinued, Pain Mild (1-3), Fever, For temp greater than 100.4 F (38 C), Maximum dose of acetaminophen is 4000 mg from all sources in 24 hours. 07 (Given - Provider: Chikis Carvajal RN)142 (Given - Provider: Chikis Carvajal RN) calcium carbonate (TUMS) chewable tablet 500 mg 500 mg, Oral, 3 TIMES DAILY PRN, Starting on Thu02/26/24 at 0435, Until Discontinued, Heartburn 0448 (Given - Provider: Paradise Albert, RN)2126 (Given - Provider: Sloan Arango, MIGUE) 0808 (Given - Provider: Froy Reagan, MIGUE) dextrose 10 % infusion IntraVENous, at 100 mL/hr, CONTINUOUS PRN, if blood glucose remains LESS THAN 70 mg/dL after 2 dextrose 10% intravenous boluses or administration of glucagon, Starting on Thu02/24/24 at 1527, If blood glucose fails to stabilize after 2 dextrose 10% intravenous boluses or glucagon administration, start dextrose 10% infusion at 100 mL/hour and repeat blood glucose at 30 and 60 minutes. If blood glucose is GREATER THAN 70 mg/dL after 60 minutes, discontinue dextrose 10% infusion. dextrose bolus 10% 125 mL(Linked Group 2) 125 mL, IntraVENous, at 937.5 mL/hr, Administer over 8 Minutes, PRN, Other, Blood glucose 40 - 69 mg/dL and patient NOT ALERT or NPO, Starting on Thu02/24/24 at 1527, Repeat blood glucose in 15 minutes. If blood glucose remains LESS THAN 70 mg/dL, repeat treatment and recheck blood glucose in 15 minutes x 2. If using glycemic management system, dose as instructed per system. If blood glucose remains LESS THAN 70 mg/dL after 2 intravenous boluses start dextrose 10% at 100 mL/hour and notify provider. dextrose bolus 10% 250 mL(Linked Group 2) 250 mL, IntraVENous, at 937.5 mL/hr, Administer over 16 Minutes, PRN, Other, Blood glucose LESS THAN 40 mg/dL and patient NOT ALERT or NPO, Starting on 02/24/24 at 1527, Repeat blood glucose in 15 minutes. If blood glucose remains LESS THAN 70 mg/dL, repeat treatment and recheck blood glucose in 15 minutes x 2. If using glycemic management system, dose as instructed per system. If blood glucose remains LESS THAN 70 mg/dL after 2 intravenous boluses start dextrose 10% at 100 mL/hour and notify provider. famotidine (PEPCID) tablet 20 mg 20 mg, Oral, DAILY PRN, Starting on 02/27/24 at 0000, Until Discontinued, GERD glucagon injection 1 mg 1 mg, SubCUTAneous, PRN, Starting on 02/24/24 at 1527, Until Discontinued, Low blood sugar, Blood glucose LESS THAN 70 mg/dL and patient NOT ALERT or NPO and does not have IV access., After administration, attempt intravenous access and start dextrose 10% at 100 mL/hr. Repeat blood glucose in 15 minutes x 2 and notify provider. glucose chewable tablet 16 g 16 g (4 tablet), Oral, PRN, Starting on 02/24/24 at 1527, Until Discontinued, Low blood sugar, If blood glucose is LESS THAN 70 mg/dL and patient is alert and tolerating oral. Give 4 tablets (16g) Repeat blood glucose in 15 minutes. If blood glucose is LESS THAN 70 mg/dL, repeat treatment and recheck blood glucose in 15 minutes x 2. If blood glucose remains LESS THAN 70 mg/dL, notify provider. ondansetron (ZOFRAN) injection 4 mg(Linked Group 3) 4 mg, IntraVENous, EVERY 6 HOURS PRN, Starting on Thu02/24/24 at 1527, Until Discontinued, Nausea, Vomiting, Administer if oral route cannot be used. 2335 (Given - Provider: Paradise Albert RN) ondansetron (ZOFRAN-ODT) disintegrating tablet 4 mg(Linked Group 3) 4 mg, Oral, EVERY 8 HOURS PRN, Starting on Thu02/24/24 at 1527, Until Discontinued, Nausea, Vomiting 2335 (See Alternative - Provider: Paradise Albert RN) polyethylene glycol (GLYCOLAX) packet 17 g 17 g, Oral, DAILY PRN, Starting on Thu02/24/24 at 1527, Until Discontinued, Constipation, First line therapy for constipation 1629 (Given - Provider: Citlali Anders RN) potassium bicarb-citric acid (EFFER-K) effervescent tablet 40 mEq(Linked Group 4) 40 mEq, Oral, PRN, Starting on Thu02/24/24 at 1527, Until Discontinued, Per Potassium Replacement Protocol, Administer as alternative if patient unable to tolerate oral tablet. K Lab Replacement Action 3.1 to 3.5 40 mEq ORAL x 1 Under 3.1 Refer to IV replacement protocol Recheck K level in AM. Protocol not for use in patients with CrCl less than 30 mL/min. Do not chew or crush. Dissolve flavored tablets completely in 3 to 4 ounces of cold water; unflavored tablets may be dissolved in 3 to 4 ounces of cold juice. Patient to sip slowly over a 5 to 10 minute period. May further dilute if GI adverse effects occur. 0701 (See Alternative - Provider: Chikis Carvajal RN) potassium chloride (KLOR-CON M) extended release tablet 40 mEq(Linked Group 4) 40 mEq, Oral, PRN, Starting on Thu02/24/24 at 1527, Until Discontinued, Potassium Replacement, May give alternative linked oral order (ordered as effervescent, packet, or liquid solution) if patient unable to tolerate tablet. K Lab Replacement Action 3.1 to 3.5 40 mEq ORAL x 1 Under 3.1 Refer to IV replacement protocol Recheck K level in AM. Protocol not for use in patients with CrCl less than 30 mL/min. Do not crush, chew, or suck on tablet. Tablet may also be broken in half and each half swallowed separately. 0701 (Given - Provider: Chikis Carvajal RN) potassium chloride 10 mEq/100 mL IVPB (Peripheral Line)(Linked Group 4) 10 mEq, IntraVENous, PRN, Starting on Thu02/24/24 at 1527, Until Discontinued, at 100 mL/hr, Potassium Replacement, K Lab Replacement Action 2.7 to 3.0 10 mEq IVPB x 6 doses (60 mEq Total) Under 2.7 CALL PROVIDER and administer 10 mEq IVPB x 6 doses (60 mEq Total) Infuse at 10 mEq/hr. Repeat Potassium lab 1 hour after final administration. Protocol not for use in patients with CrCl less than 30 mL/min. 0701 (See Alternative - Provider: Chikis Carvajal RN) sodium chloride flush 0.9 % injection 5-40 mL 5-40 mL, IntraVENous, PRN, Starting on Thu02/24/24 at 1527, Until Discontinued, Line Care, After every IV line use, For Line Patency: Peripheral IV = 5 mL; Midline or Central Line = 10 mL/lumen. If following IV push medication, administer flush at same rate as the IV push. Flush volume is determined by type of infusion therapy being given. For non-viscous solutions use: Peripheral IV = 5 mL Midline or Central Line = 10 mL/lumen For viscous solutions (i.e. blood components, parenteral nutrition, contrast media, or after obtaining blood sample) use: Peripheral IV = 10 mL Midline or Central Line = 20 mL/lumen 1613 (Given - Provider: Citlali Anders RN) Linked Groups Order Group 1: acetaminophen (TYLENOL) tablet 650 mgJump to med 650 mg, Oral, EVERY 6 HOURS PRN, Starting on Thu02/24/24 at 1527, Until Discontinued, Pain Mild (1-3), Fever, For temp greater than 100.4 F (38 C), Maximum dose of acetaminophen is 4000 mg from all sources in 24 hours. Or acetaminophen (TYLENOL) suppository 650 mgJump to med 650 mg, Rectal, EVERY 6 HOURS PRN, Starting on Thu02/24/24 at 1527, Until Discontinued, Pain Mild (1-3), Fever, For temp greater than 100.4 F (38 C), Administer if oral route cannot be used. Group 2: dextrose bolus 10% 125 mLJump to med 125 mL, IntraVENous, at 937.5 mL/hr, Administer over 8 Minutes, PRN, Other, Blood glucose 40 - 69 mg/dL and patient NOT ALERT or NPO, Starting on Thu02/24/24 at 1527, Repeat blood glucose in 15 minutes. If blood glucose remains LESS THAN 70 mg/dL, repeat treatment and recheck blood glucose in 15 minutes x 2. If using glycemic management system, dose as instructed per system. If blood glucose remains LESS THAN 70 mg/dL after 2 intravenous boluses start dextrose 10% at 100 mL/hour and notify provider. Or dextrose bolus 10% 250 mLJump to med 250 mL, IntraVENous, at 937.5 mL/hr, Administer over 16 Minutes, PRN, Other, Blood glucose LESS THAN 40 mg/dL and patient NOT ALERT or NPO, Starting on Thu02/24/24 at 1527, Repeat blood glucose in 15 minutes. If blood glucose remains LESS THAN 70 mg/dL, repeat treatment and recheck blood glucose in 15 minutes x 2. If using glycemic management system, dose as instructed per system. If blood glucose remains LESS THAN 70 mg/dL after 2 intravenous boluses start dextrose 10% at 100 mL/hour and notify provider. Group 3: ondansetron (ZOFRAN-ODT) disintegrating tablet 4 mgJump to med 4 mg, Oral, EVERY 8 HOURS PRN, Starting on Thu02/24/24 at 1527, Until Discontinued, Nausea, Vomiting Or ondansetron (ZOFRAN) injection 4 mgJump to med 4 mg, IntraVENous, EVERY 6 HOURS PRN, Starting on Thu02/24/24 at 1527, Until Discontinued, Nausea, Vomiting, Administer if oral route cannot be used. Group 4: potassium chloride (KLOR-CON M) extended release tablet 40 mEqJump to med 40 mEq, Oral, PRN, Starting on Thu02/24/24 at 1527, Until Discontinued, Potassium Replacement, May give alternative linked oral order (ordered as effervescent, packet, or liquid solution) if patient unable to tolerate tablet. K Lab Replacement Action 3.1 to 3.5 40 mEq ORAL x 1 Under 3.1 Refer to IV replacement protocol Recheck K level in AM. Protocol not for use in patients with CrCl less than 30 mL/min. Do not crush, chew, or suck on tablet. Tablet may also be broken in half and each half swallowed separately. Or potassium bicarb-citric acid (EFFER-K) effervescent tablet 40 mEqJump to med 40 mEq, Oral, PRN, Starting on Thu02/24/24 at 1527, Until Discontinued, Per Potassium Replacement Protocol, Administer as alternative if patient unable to tolerate oral tablet. K Lab Replacement Action 3.1 to 3.5 40 mEq ORAL x 1 Under 3.1 Refer to IV replacement protocol Recheck K level in AM. Protocol not for use in patients with CrCl less than 30 mL/min. Do not chew or crush. Dissolve flavored tablets completely in 3 to 4 ounces of cold water; unflavored tablets may be dissolved in 3 to 4 ounces of cold juice. Patient to sip slowly over a 5 to 10 minute period. May further dilute if GI adverse effects occur. Or potassium chloride 10 mEq/100 mL IVPB (Peripheral Line)Jump to med 10 mEq, IntraVENous, PRN, Starting on Thu02/24/24 at 1527, Until Discontinued, at 100 mL/hr, Potassium Replacement, K Lab Replacement Action 2.7 to 3.0 10 mEq IVPB x 6 doses (60 mEq Total) Under 2.7 CALL PROVIDER and administer 10 mEq IVPB x 6 doses (60 mEq Total) Infuse at 10 mEq/hr. Repeat Potassium lab 1 hour after final administration. Protocol not for use in patients with CrCl less than 30 mL/min. Scheduled Medication Order 02/26/2024 02/27/2024 02/28/2024 cephALEXin (KEFLEX) capsule 500 mg (COMPLETED) 500 mg, Oral, ONCE, 1 dose, On Thu02/28/24 at 0630, Antimicrobial Indications: Skin and Soft Tissue Infection 0639 (Given - Provid er: Froy Reagan RN) Scheduled Medication Order 07/21/2024 07/22/2024 07/23/2024 acetaminophen (TYLENOL) tablet 650 mg (COMPLETED) 650 mg, Oral, ONCE, 1 dose, On Thu07/22/24 at 1745, Maximum dose of acetaminophen is 4000 mg from all sources in 24 hours. 1734 (Given - Provider: Helene Horan RN) fentaNYL (SUBLIMAZE) injection 25 mcg (COMPLETED) 25 mcg, IntraVENous, ONCE, 1 dose, On Thu07/22/24 at 2245, If oral and IV narcotics ordered, use oral first and only use IV if oral is ineffective or cannot take oral. Do Not give oral and IV within 1 hour of each other unless specifically ordered. 224 (Given - Provider: Debra Metz RN) midazolam PF (VERSED) injection 0.5 mg (COMPLETED) 0.5 mg, IntraVENous, ONCE, 1 dose, On 07/23/24 at 0245 0310 (Given - Provid er: Pia Seaman RN) midazolam PF (VERSED) injection 1 mg (COMPLETED) 1 mg, IntraVENous, ONCE, 1 dose, On Thu07/22/24 at 2245 2246 (Given - Provider: Debra Metz RN) ondansetron (ZOFRAN) injection 4 mg (COMPLETED) 4 mg, IntraVENous, ONCE, 1 dose, On Thu07/22/24 at 1345 1410 (Given - Provider: Maribel Lopez RN) ondansetron (ZOFRAN) injection 4 mg (COMPLETED) 4 mg, IntraVENous, ONCE, 1 dose, On Thu07/22/24 at 2115 2134 (Given - Provider: Pia Seaman RN) sodium chloride 0.9 % bolus 500 mL (COMPLETED) 500 mL, IntraVENous, at 491.8 mL/hr, Administer over 61 Minutes, ONCE, On Thu07/22/24 at 1345, For 1 dose, For adult patients weighing > 55 kg (120 lbs.) and less than <50 years of age initiate 0.9NS at 500 mL/ hr. All bolus orders are to be given over 10 to 15 minutes 1409 (New Bag - Provider: Maribel Lopez, MIGUE)1734 (Stopped - Provider: Helene Horan RN) sodium chloride 0.9 % bolus 500 mL (COMPLETED) 500 mL, IntraVENous, at 967.7 mL/hr, Administer over 31 Minutes, ONCE, On Thu07/22/24 at 1530, For 1 dose, For adult patients weighing > 55 kg (120 lbs.) and less than <50 years of age initiate 0.9NS at 500 mL/ hr. All bolus orders are to be given over 10 to 15 minutes 1737 (New Bag - Provider: Helene Horan RN)1832 (Stopped - Provider: Carmen Du, MIGUE) Continuous Medication Order 07/21/2024 07/22/2024 07/23/2024 0.9 % sodium chloride infusion IntraVENous, at 75 mL/hr, CONTINUOUS, Starting on Thu07/22/24 at 1830 1935 (New Bag - Provider: Carmen Du, MIGUE) 0853 (Stopped - Provider: Redd Ortiz RN) Scheduled Medication Order 11/09/2024 11/10/2024 11/11/2024 ceFAZolin (ANCEF) 2000 mg in 20 mL IV syringe (COMPLETED) 2,000 mg, IntraVENous, MANAGER DRIVE TO O.R., 1 dose, On Thu11/11/24 at 0715, Antimicrobial Indications: Surgical Prophylaxis, Administer within 1 hour prior to incision. Recommend to repeat in 3-4 hours after initial dose if still intra-op. Administer over 5 mins., Pre-op (day of surgery) 0745 (Given - Provid er: TYRESE Nevarez CRNA) sodium chloride flush 0.9 % injection 5-40 mL 5-40 mL, IntraVENous, EVERY 12 HOURS SCHEDULED (2 times per day), First dose on Thu11/11/24 at 0900, Until Discontinued, For Line Patency: Peripheral IV = 5 mL; Midline or Central Line = 10 mL/lumen. If following IV push medication, administer flush at same rate as the IV push. Flush volume is determined by type of infusion therapy being given. For non-viscous solutions use: Peripheral IV = 5 mL Midline or Central Line = 10 mL/lumen For viscous solutions (i.e. blood components, parenteral nutrition, contrast media, or after obtaining blood sample) use: Peripheral IV = 10 mL Midline or Central Line = 20 mL/lumen, Pre-op (day of surgery) 0900 (Due)2100 (Due) Continuous Medication Order 11/09/2024 11/10/2024 11/11/2024 lactated ringers infusion IntraVENous, at 100 mL/hr, CONTINUOUS, Starting on Thu11/11/24 at 0645, Pre-op (day of surgery) 0712 (New Bag - Prov ider: Lisha Mejia RN)0739 (NoRateChange - Provider: TYRESE Nevarez CRNA)0840 (Stopped - Provider: TYRESE Nevarez CRNA) PRN Medication Order 11/09/2024 11/10/2024 11/11/2024 0.9 % sodium chloride infusion IntraVENous, at 5-250 mL/hr, PRN, if patient receiving piggyback infusions and maintenance fluids are not ordered, Starting on Thu11/11/24 at 0658, For piggyback infusion, administer at same rate as piggyback for a total of 25 mL. Enter 25 mL into dose field and piggyback rate into rate field of order. If piggyback is infusing at a rate less than 100 mL/hr, enter 25 mL into dose field and 100 mL/hr into rate field of order., Pre-op (day of surgery) BUPivacaine-EPINEPHrine PF (MARCAINE-w/EPINEPHrine) 0.5% -1:181126 injection (CANCELED) PRN, Starting on Thu11/11/24 at 0857, Until Thu11/11/24 at 0858, Intra-op 0800 (Given - Provid er: Quincy Penn, DPM - Comment: right hallux) sod chloride IRR soln 0.9 % 1,000 mL with gentamicin (GARAMYCIN) 80 mg (CANCELED) PRN, Starting on Thu11/11/24 at 0858, Intra-op 0858 (Given - Provid er: Quincy Penn, CISCOM - Comment: right hallux) sodium chloride flush 0.9 % injection 5-40 mL 5-40 mL, IntraVENous, PRN, Starting on Thu11/11/24 at 0658, Until Discontinued, Line Care, After every IV line use, For Line Patency: Peripheral IV = 5 mL; Midline or Central Line = 10 mL/lumen. If following IV push medication, administer flush at same rate as the IV push. Flush volume is determined by type of infusion therapy being given. For non-viscous solutions use: Peripheral IV = 5 mL Midline or Central Line = 10 mL/lumen For viscous solutions (i.e. blood components, parenteral nutrition, contrast media, or after obtaining blood sample) use: Peripheral IV = 10 mL Midline or Central Line = 20 mL/lumen, Pre-op (day of surgery) Goals (unrecognized section and content) Goals may be documented in a n alternate sectionNo InformationNo InformationNo InformationNo InformationNo InformationNo InformationGoals may be documented in an alternate sectionNo InformationNo InformationNo InformationNo InformationNo InformationNo InformationNo InformationNo InformationNo InformationNo InformationNo InformationNo InformationNo InformationGoals may be documented in an alternate sectionGoals may be documented in an alternate sectionGoals may be documented in an alternate sectionGoals may be documented in an alternate sectionGoals may be documented in an alternate section FOR RECORDS PERTAINING TO PATIENTS WHO ARE OR HAVE BEEN ENROLLED IN A CHEMICAL DEPENDENCY/SUBSTANCEABUSE PROGRAM, SOME INFORMATION MAY BE OMITTED. This clinical summary was aggregated from multiple sources. Caution should be exercised in using it in the provision of clinical care. This summary normalizes information from multiple sources, and as a consequence, information in this document may materially change the coding, format and clinical context of patient data. In addition, data may be omitted in some cases. CLINICAL DECISIONS SHOULD BE BASED ON THE PRIMARY CLINICAL RECORDS. [facility] provides no warranty or guarantee of the accuracy or completeness of information in this document.
--- NOTE | 2025-01-29 14:19 | XR_ITS ---
[facility] [place] [address] Patient Name: MONICO SANCHEZ MRN: [id number] date: 1960 Sex: M Assigned Patient Location: ED.MAIN Current Patient Location: ED.MAIN Accession/Order Number: [id number] Exam Date: 01/29/2025 14:40 Report Date: 01/29/2025 15:03 At the request of: SAM YA DO Procedure: XR tibia fibula LT 2V LEFT TIBIA AND FIBULA - - 2 views CLINICAL HISTORY: Cellulitis. COMPARISON: None FINDINGS: Soft tissue swelling is noted. Vascular calcifications. No soft tissue gas or radiopaque foreign body. No acute bony process. XR/XR tibia fibula LT 2V IMPRESSION: SOFT TISSUE SWELLING WITHOUT ACUTE BONY PROCESS. Impression dictated by: Werner Alvarado Jr., D.O. 01/29/2025 3:03 PM Dictation Location: [place] [address] Electronically authenticated by: [id number] Y Date: 01/29/2025 15:03
--- NOTE | 2025-01-29 14:27 | ED_ITS ---
HPI HPI - General Adult General Chief complaint: Extremity Problem, Nontraumatic Stated complaint: LOWER EXTREMITY PAIN Time Seen by Provider: 01/29/25 14:00 Source: patient Mode of arrival: ambulance History of Present Illness HPI narrative: Patient is a 64-year-old male presenting to the emergency department for evaluation of left lower extremity pain. Patient states he woke up this morning with exquisite pain in the left lateral lopez. He states that it is red, hot, and extremely tender to the touch. He states that the pain radiates up his entire leg. He states he feels feverish and feels like he has the flu. Patient has a history of insulin-dependent type 2 diabetes, CHF, and hypertension. He denies any shortness of breath or chest pain. No abdominal pain, nausea, or vomiting. Related Data Previous Rx's ?Medication ?Instructions ?Recorded cephalexin 250 mg capsule 250 mg PO BID 7 days #14 cap s 07/30/24 polyethylene glycol 3350 17 17 g PO DAILY PRN constipa tion 07/30/24 gram/dose oral powder (Miralax) #510 grams solifenacin 5 mg tablet (Vesicare) 5 mg PO DAILY 10 da ys #10 tabs 08/02/24 Allergies Allergy/AdvReac Type Severity Reaction Status Date / Time metoprolol Allergy Unknown Unknown Verified 07/30/24 12:14 ciprofloxacin AdvReac Mild itching Verified 07/30/24 12:14 dapagliflozin (From [facility]) AdvReac Mild itching Verified 07/30/24 12:14 Review of Systems ROS Status of ROS 10 or more systems reviewed and unremark able except as noted in history and below [facility] Medical History (Updated 01/29/25 @ 15:36 by Stuart Hooper DO) HTN (hypertension) ?I10 - Essential (primary) hypertension (ICD-10) CHF (congestive heart failure) ?I50.9 - Heart failure, unspecified (ICD-10) Diabetes ?E11.9 - Type 2 diabetes mellitus without complications (ICD-10) Social History Little interest or pleasure in doing things: not at all Feeling down, depressed, or hopeless: not at all Exam Narrative Exam Narrative: CONSTITUTIONAL: Patient appears disheveled, malodorous, appears uncomfortable but nontoxic. SKIN: Was warm and dry. EYES: Sclerae white. EARS, NOSE, THROAT: Moist oral mucosa. RESPIRATORY: Clear to auscultation bilaterally, no wheezes, crackles, or stridor, no use of accessory muscles CARDIOVASCULAR: Normal rate and regular rhythm. 1+ DP pulses bilaterally. GASTROINTESTINAL: Abdomen is nondistended. MUSCULOSKELETAL: There is an approximately 6 x 6 cm area of erythema, induration, tenderness to palpation on the lateral aspect of the left lopez. There is no crepitus. There is no fluctuance or drainage. The bilateral extremities have significant pitting edema. NEUROLOGIC: Patient is awake and alert. Equal strength and sensation to light touch in the bilateral lower extremities. Constitutional Vital Signs, click to edit/add: Last Vital Signs Temp 97.8 F 01/29/25 13:57 Pulse 73 01/29/25 13:57 Resp 20 01/29/25 13:57 BP 112/48 L 01/29/25 13:57 Pulse Ox 98 01/29/25 13:57 O2 Del Method Room Air 01/29/25 13:57 Course Vital Signs Vital signs: Vital Signs Temperature 97.8 F 01/29/25 13:57 Pulse Rate 73 01/29/25 13:57 Respiratory Rate 20 01/29/25 13:57 Blood Pressure 112/48 L 01/29/25 13:57 Pulse Oximetry 98 01/29/25 13:57 Oxygen Delivery Method Room Air 01/29/25 13:57 Temperature 97.8 F 01/29/25 13:57 Pulse Rate 73 01/29/25 13:57 Respiratory Rate 20 01/29/25 13:57 Blood Pressure 112/48 L 01/29/25 13:57 Pulse Oximetry 98 01/29/25 13:57 Oxygen Delivery Method Room Air 01/29/25 13:57 Medical Decision Making MDM Narrative Medical decision making narrative: Patient is a 64-year-old male presenting to the emergency department with left lower extremity pain and redness that began this morning when he awoke from his sleep. He is also complaining of feeling generally ill with flulike symptoms. His vital signs on arrival are within normal limits. He is afebrile and hemodynamically stable. Of note, patient is an insulin-dependent type 2 diabetic and has a history of CHF. Patient's history and physical examination was consistent with left lower extremity cellulitis. There is no crepitus, however did obtain an x-ray of the leg to rule out free air or evidence of necrotizing fasciitis. Given his risk factors/insulin-dependent diabetes, I recommend the patient be admitted to the observation unit overnight for IV antibiotics and further monitoring/care. IV was established and laboratory studies were obtained. He was empirically treated with IV vancomycin. X-rays of the left tibia independently reviewed and interpreted by myself and radiology demonstrated no evidence of osteomyelitis or necrotizing fasciitis. No osseous abnormalities. Laboratory studies were significant for leukocytosis and mild lactic acidosis. No evidence of acute renal injury. No significant electrolyte or metabolic derangement. I did discuss the patient with hospitalist, Dr. Nguyen, who accepted the patient to his service. FINAL IMPRESSION: #Acute left lower extremity cellulitis #Acute lactic acidosis #History of insulin-dependent type 2 diabetes DISPOSITION: Admitted to the hospital CONDITION: Fair Medical Records Medical records reviewed: Yes I reviewed the patient's medical records Lab Data Lab results reviewed: Yes I reviewed the patient's lab results Labs: Lab Results 01/29/25 Range/Units 14:55 WBC 13.2 H (4.0-11.0) 10^3/uL RBC 4.35 L (4.70-6.10) 10^6/uL Hgb 13.1 L (14.0-18.0) g/dL Hct 39.5 L (42.0-54.0) % MCV 90.8 (80.0-94.0) fL MCH 30.1 (25.9-34.0) pg MCHC 33.2 (29.9-35.2) g/dL RDW 13.2 (11.0-15.0) % Plt Count 254 (150-450) 10^3/uL MPV 11.3 (9.5-13.5) fL Seg Neuts % (Manual) 88.0 H (43.0-75.0) Band Neutrophils % 3.0 (0-5) % Lymphocytes % (Manual) 1.0 L (20.5-60.0) % Monocytes % (Manual) 6.0 (1.7-12.0) % Eosinophils % (Manual) 2.0 (0.9-7.0) % Basophils % (Manual) 0.0 L (0.2-2.0) % Neutrophils # (Manual) 11.61 H (1.4-6.5) 10^3/uL Band Neutrophils # 0.4 H (0.0-0.3) 10^3/uL Lymphocytes # (Manual) 0.13 L (1.20-3.80) 10^3/uL Monocytes # (Manual) 0.79 (0.30-0.80) 10^3/uL Eosinophils # (Manual) 0.26 (0.00-0.70) 10^3/uL Basophils # (Manual) 0.00 (0.00-0.10) 10^3/uL Sodium 137 (136-145) mmol/L Potassium 3.7 (3.5-5.1) mmol/L Chloride 96 L (98-107) mmol/L Carbon Dioxide 29.4 (21.0-32.0) mmol/L Anion Gap 15.3 BUN 74.0 H (7.0-18.0) mg/dL Creatinine 2.99 H (0.70-1.30) mg/dL Est GFR ( Amer) 26 L (>=60 mL/min/1.73m^2) Est GFR (Non-Af Amer) 21 L (>=60 mL/min/1.73m^2) BUN/Creatinine Ratio 24.7 Glucose 217 H (74-106) mg/dL Lactate 2.6 H* (0.4-2.0) mmol/L Calcium 10.1 (8.5-10.1) mg/dL Imaging Data left tibia xray: Attestation: I personally reviewed and interpreted this imaging study as follows: Radiologist's impression: ITS Impressions Tibia/Fibula X-Ray 01/29/25 14:19 IMPRESSION: SOFT TISSUE SWELLING WITHOUT ACUTE BONY PROCESS. Impression dictated by: Werner Alvarado Jr., D.O. 01/29/2025 3:03 PM Dictation Location: [place] [address] Electronically authenticated by: [id number] Y Date: 01/29/2025 15:03 Discharge Plan Discharge Chief Complaint: Extremity Problem, Nontraumatic Clinical Impression: Cellulitis Qualifiers: Site of cellulitis: extremity Site of cellulitis of extremity: lower extremity Laterality: left Qualified Code(s): L03.116 - Cellulitis of left lower limb Patient Disposition: Admitted As Inpatient Time of Disposition Decision: 15:36 Condition: Fair
[2025-01-29 15:05] LABS: Hematocrit 39.5 % (42.0-54.0); Hemoglobin 13.1 g/dL (14.0-18.0); Mean Corpuscular HGB Conc 33.2 g/dL (29.9-35.2); Mean Corpuscular Hemoglobin 30.1 pg (25.9-34.0); Mean Corpuscular Volume 90.8 fL (80.0-94.0); Platelet Count 254 10^3/uL (150-450); Red Blood Count 4.35 10^6/uL (4.70-6.10); White Blood Count 13.2 10^3/uL (4.0-11.0)
[2025-01-29] MEDS: VANCOMYCIN HCL 1,000 MG in 0.9 % SODIUM CHLORIDE 250 ML 250 MG IV (15:08)
[2025-01-29 15:11] LABS: Anion Gap 15.3; Blood Urea Nitrogen 74.0 mg/dL (7.0-18.0); Calcium 10.1 mg/dL (8.5-10.1); Carbon Dioxide 29.4 mmol/L (21.0-32.0); Chloride 96 mmol/L (98-107); Estimated GFR (African America 26 (>=60 mL/min/1.73m^2); Estimated GFR (Non-African Ame 21 (>=60 mL/min/1.73m^2); Glucose 217 mg/dL (74-106); Potassium 3.7 mmol/L (3.5-5.1); Sodium 137 mmol/L (136-145)
[2025-01-29 15:18] LABS: Band Neutrophils Absolute 0.4 10^3/uL (0.0-0.3); Basophils Abs Manual 0.00 10^3/uL (0.00-0.10); Basophils Percent Manual 0.0 % (0.2-2.0); Eosinophils Absolute Manual 0.26 10^3/uL (0.00-0.70); Eosinophils Percent Manual 2.0 % (0.9-7.0); Lymphocytes Absolute Manual 0.13 10^3/uL (1.20-3.80); Lymphocytes Percent Manual 1.0 % (20.5-60.0); Monocytes Absolute Manual 0.79 10^3/uL (0.30-0.80); Monocytes Percent Manual 6.0 % (1.7-12.0); Segmented Neut Absolute Manual 11.61 10^3/uL (1.4-6.5); Segmented Neutrophils % Manual 88.0 (43.0-75.0)
[2025-01-29 15:28] LABS: Lactate/Lactic Acid 2.6 mmol/L (0.4-2.0)
--- NOTE | 2025-01-29 16:08 | P.HP_ITS ---
HPI H&P: HPI History of Present Illness Chief complaint: LEFT LEG PAIN, SWELLING, AND WARMTH. Narrative: This is a 64-year-old man who woke up this morning with severe pain in the skin just above his left ankle. He presented to the [place] emergency room where he was provided with IV vancomycin 1000 mg. An x-ray of his tibia and fibula did not reveal any gas to suggest a necrotizing fasciitis situation. His white blood count is 13.2. His lactic acid level is 2.6. In the ER room he appears to be having shaking chills and he has some nausea and retching but no actual emesis comes up. His BUN is 74. We only have a couple other lab values here on this computer [employer] tem but his best with was 34 back in November 15 of this year and his creatinine is 2.99 and his best was also back on November 15 of this year at 1.63. He does have long-term lower extremity edema. At home his points out that he actually has Lymphapress boots that he wears occasionally. His wanted to use 1 on him this morning but the patient refused. The patient denies any problems in his toes or the forefoot or the ankle of his foot. He points out that all the pain starts on the skin going up from the ankle. Surprisingly, the way the patient and his describe it, he has not had cellulitis on his lower extremities before. He does have a past medical history of diabetes mellitus type 2, chronic kidney disease stage IV, coronary artery disease with stents, heart failure (likely with preserved ejection fraction) hyperuricemia, BMI of 35.3, and decreased ambulation at baseline. He normally can ambulate with the help of a walker. He says that he sleeps in a recliner chair for comfort. He keeps his arms elevated on the sides of the chair. For this reason he does not often elevate his legs when he is sleeping. In the ER he is having a lot of pain from this cellulitis done by the left ankle. It comes and jolts and spasms. When I walked in the ER he was having chills. Although the ER room that he was and is very cold. He is having nausea, and some dry heaving but not really any emesis coming up. points out that for several months now every single morning he wakes up with a sensation of lightheadedness and nausea. He waits to take his medicines until the middle of the day so that the nausea can pass. He follows with a line director out of [place] and a body and fender mechanic apprentice out of [place] and they have not found a reason for these morning symptoms. Review of Systems ROS Narrative 10 point review of systems was completed , but is negative except as mentioned elsewhere in this documentation. [facility] Medical History (Updated 01/29/25 @ 16:21 by LILIANA CARNEY) CKD stage 4 due to type 2 diabetes mellitus ?E11.22 - Type 2 diabetes mellitus with diabetic chronic kidney disease (ICD- 10) ?N18.4 - Chronic kidney disease, stage 4 (severe) (ICD-10) Constipation ?K59.00 - Constipation, unspecified (ICD-10) CAD (coronary artery disease) ?I25.10 - Atherosclerotic heart disease of [place] coronary artery without angina pectoris (ICD-10) HTN (hypertension) ?I10 - Essential (primary) hypertension (ICD-10) CHF (congestive heart failure) ?I50.9 - Heart failure, unspecified (ICD-10) Diabetes ?E11.9 - Type 2 diabetes mellitus without complications (ICD-10) Surgical History (Updated 01/29/25 @ 16:16 by LILIANA CARNEY) History of neck dissection ?Z98.890 - Other specified postprocedural states (ICD-10) History of amputation of left great toe ?Z89.412 - Acquired absence of left great toe (ICD-10) Stented coronary artery ?Z95.5 - Presence of coronary angioplasty implant and graft (ICD-10) Family History (Updated 01/29/25 @ 16:16 by LILIANA CARNEY) Other Family history of hypertension Social History (Updated 01/29/25 @ 16:17 by LILIANA CARNEY) Smoking status: Never smoker Non-prescribed substance use: denies use 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 Little interest or pleasure in doing things: not at all Feeling down, depressed, or hopeless: not at all Meds Home Medications and Allergies Home Medications ?Medication ?Instructions ?Recorded ?Confirmed ?Type cephalexin 250 mg capsule 250 mg PO BID 7 days #14 cap s 07/30/24 Rx polyethylene glycol 3350 17 17 g PO DAILY PRN constipa tion 07/30/24 Rx gram/dose oral powder (Miralax) #510 grams solifenacin 5 mg tablet (Vesicare) 5 mg PO DAILY 10 da ys #10 tabs 08/02/24 Rx Allergies Allergy/AdvReac Type Severity Reaction Status Date / Time metoprolol Allergy Unknown Unknown Verified 07/30/24 12:14 ciprofloxacin AdvReac Mild itching Verified 07/30/24 12:14 dapagliflozin (From [facility]) AdvReac Mild itching Verified 07/30/24 12:14 Exam Narrative Exam Narrative: General: Seen in ER room 7 he has his head of bed elevated on a cot. He intermittently moans every few minutes from spasms of pain from the left ankle. His is at the bedside. He is clutching an emesis bag and having some rounds of nausea. Neurologic: Awake and alert and oriented x 3. Psychiatric: Normal affect. Eyes: EOMI. PERRLA. Mouth: Mallampati grade 4. Tongue is midline. Neck: No lymphadenopathy that I can appreciate. Pulmonary: Clear to auscultation throughout. No wheezing. No rhonchi. No crackles. Cardiac: Regular rate and rhythm. No rubs or gallops to auscultation. GI: Abdomen soft, nontender to palpation, but slightly hypoactive bowel sounds to auscultation throughout. Lower extremities: Right lower extremity shows chronic edema in the ankle. His right great toe had been amputated in the past. Left lower extremity does show a light pink blotchy cellulitis extending from the ankle up about 6 cm. This is circumferential. It is moderately warm to touch. The toes on this foot are normal. He has no pain on the dorsum of the foot or on the calcaneus. Constitutional Vital Signs, click to edit/add: Last Vital Signs Temp 97.8 F 01/29/25 13:57 Pulse 73 01/29/25 13:57 Resp 20 01/29/25 13:57 BP 112/48 L 01/29/25 13:57 Pulse Ox 98 01/29/25 13:57 O2 Del Method Room Air 01/29/25 13:57 Results Labs Labs: Short CBC 01/29/25 Range/Units 14:55 WBC 13.2 H (4.0-11.0) 10^3/uL Hgb 13.1 L (14.0-18.0) g/dL Hct 39.5 L (42.0-54.0) % Plt Count 254 (150-450) 10^3/uL [facility] 01/29/25 14:55 Sodium 137 Potassium 3.7 Chloride 96 L Carbon Dioxide 29.4 BUN 74.0 H Creatinine 2.99 H Glucose 217 H Calcium 10.1 Assessment and Plan Assessment and Plan (1) Left leg cellulitis: (2) Leg edema, left: (3) CKD stage 4 due to type 2 diabetes mellitus: (4) CAD (coronary artery disease): Qualifiers: Coronary Disease-Associated Artery/Lesion type: [place] artery [place] vs. 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 This infection came on very quickly, with pain noticeable just this morning. Patient is at increased risk of challenges because of long-term edema to both lower extremities, chronic kidney disease stage IV, and diabetes mellitus on insulin. Patient will not be able to use compressive therapy, such as the Lymphapress boots that he has available at home, until the cellulitis is improved. There is also a risk of bacteremia as the patient is having chills and has an elevated lactic acid at 2.6. Long-term medical problems: Chronic kidney disease stage IV. Diabetes mellitus type 2 on insulin. Coronary artery disease with history of coronary stenting. Hypertension. BMI of 35. Physical weakness and a long-term difficulty with ambulation. Plan: Hospital admission, inpatient status. This cellulitis is likely to worsen for 24 to 48 hours before it begins to get better. IV antibiotics, administered in the inpatient setting, or required as he is at risk that this could worsen precipitously and dosing the medication is challenging based on his chronic kidney disease stage IV and decreased renal clearance and healing time will be delayed because of his long-term edema to both lower extremities and long-term use of insulin. Will start him on Ancef 1 g IV every 8 hours. I am a little bit reluctant to use IV vancomycin in the setting. The 1000 mg dose that he got in the ER right now should last him for at least 24 hours. I will have my colleague taking over tomorrow to decide whether continuing IV vancomycin is necessary. Another IV antibiotic possibility would be Teflaro/ceftaroline, but I am not certain if that is on formulary here. Given the challenge of vancomycin dosing and chronic kidney disease stage IV will check BMP and CBC daily. Check hemoglobin A1c with morning labs. Sliding scale insulin for her diabetes control. Nausea treatment with IV Zofran. Pain control with oral Tylenol and low-dose oral oxycodone. For the spasms of pain oral hydroxyzine may be helpful. I told the patient and the that once he is in a hospital bed he should elevate that leg is much as possible on some pillows. DVT prophylaxis will be at the renally reduced dose of 5000 units subcutaneously every 12 hours. He will require physical therapy to try and keep him mobile during this hospitalization process.
[2025-01-29 16:21] VITALS: BP 91/55; PULSE 82; O2SAT 99
--- OUTSIDE RECORDS SUMMARY | 2025-01-29 16:45 | XMS_ITS | CCD ---
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 Name Role Phone Pia Douglass Primary Care Provider [phone] Jorge Pritchett DO Primary Care Provider LEANDRO VIDALES Attending Unavailable RAJAT HURST Admitting Unavailable JORGE PRITCHETT Primary Care Unavailable Jorge Pritchett DO Primary Care Provider DASHA Douglass Primary Care Provider MD Alma aKn Attending Provider Jorge Pritchett DO Primary Care Provider [...] Unavailable RUSHER, ALICE Cosby Attending Unavailable Jorge Pritcehtt DO Primary Care Provider Jeremias Sullivan DO Attending Provider [phone] Yarely ROMO, Jorge Attending Provider YARELY, JORGE Primary Care Unavailable QUINCY PENN [...] sources) Ciprofloxacin; Translations: [ciprofloxacin] Drug Allergy 01-21-20 [facility] Exaprotect (20 sources) Azithromycin; Translations: [azithromycin] Drug Allergy 07-17-19 Dizziness or Vertigo, Unknown [facility] (20 sources) Lisinopril; Translations: [lisinopril] Drug Allergy 07-17-19 [facility] Other (2 sources) Ciprofloxacin Drug Allergy 01-21-20 [facility] Repository (2 sources) Allergies Reconciled Propensity to adverse reactions Unknown [employer] Other (20 sources) dapagliflozin Drug Allergy 10-26-19 24 Itching [facility] Xenapto Work Phone: (13 sources) Lisinopril Propensity to adverse reactions 07-17-19 23 Cough, Unknown [facility] (16 sources) Metoprolol Drug Allergy 07-31-19 25 [facility] ([facility] source) dapagliflozin; Translations: [Farxiga] Drug Allergy [facility] Repository Medications Current Medications Medication Drug [...] Orally Once a day Active bacillus coagulans [id number] 0 unt / inulin 250 mg oral [...] 4:11pm Start: 02-27-2024 take 2 tablets by [facility] once daily furosemide (LASIX) 40 [...] Start: 06-01-2021 take 2 tablets by mo [facility] once daily furosemide (LASIX) 40 [...] Start: 02-24-2024 Start: 05-27-2021 15 g, Oral, NM N, Low blood sugar, Starting on 1/3/22 [...] sodium chloride 0.9 % 100 mL IVPB ([id number]) (1 source) Start: 02-24-2024 End: 03-02-2024 1,000 [...] May 12, 2024 1:25pm polyethylene glycol 3350 77163 mg powder for oral solution (20 sources) [...] tablet Orally Once a day Active Saw [place] Seed Oil 160 mg capsule (1 source) Start: 12-23-2024 Saw [place] Seed Oil 160 mg capsule Active CAP [...] (20 sources) take 1 capsule by mo [facility] once daily Alpha-Lipoic Acid 200 [...] daily Active Blood-Glucose Meter,Continuo us (Dexcom G7 Bicycle Designer) misc (2 sources) Start: 08-29-2023 End: 05-12-2024 Blood-Glucose Meter,Continuo us (Dexcom G7 Bicycle Designer) misc Discontinued 0 .Route 1 August 28, 2023 11:00pm May 12, 2024 12:29pm Use to test home BS 4-6x daily Start: 08-29-2023 Blood-Glucose Meter,Continuous (Dexcom G7 Bicycle Designer) misc Active 0 .Route 1 August 29, [...] Use to test home BS 4-6x daily Blood-Glucose,Bicycle Designer,Cont (Dexcom G7 Bicycle Designer) misc (2 sources) Start: 08-29-2023 End: 05-12-2024 Blood-Glucose,Bicycle Designer,Cont (Dexcom G7 Bicycle Designer) misc Discontinued 0 .Route August 29, 2023 [...] capsule by mouth three times a week [facility] 07/03/2023 Active ceFAZolin 2000 mg injection (1 [...] presley ly Cholecalciferol (VITAMIN D3) 1.25 MG (46324 UT) CAPS Take 1 capsule by mouth daily 0 Active take 1 capsule by mouth in the m orning Cholecalciferol (VITAMIN D3) 1.25 MG (75228 UT) CAPS Take 1 capsule by mouth [...] mouth twice daily as needed, then take [id number] tablets by mouth twice daily as needed [...] per tablet Indications: 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 , S/P angioplasty [...] Start: 10-15-2022 take 1 capsule by mo [facility] every twenty-four hours in the [...] Coronary arteriosclerosis; Translations: [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 with documented [...] Comment on above: ISS coverage:< [phone] [id number] 34u> 300 38Basal Insulin 20u am and [...] sources) Long-term current use of insulin; Translations: [computer terminal operator (current) use of insulin] Episodic Other aftercare (5 sources) USP (current) use of insulin; Translations: [DETENTION CURRENT USE OF INSULIN] Onset: 3 Episodic Other aftercare (1 source) USP (current) use of aspirin; Translations: [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 USE OF ASPIRIN] Onset: 3 Episodic Other aftercare (1 source) Other termite renewal inspector (current) drug therapy; Translations: [OTH DETENTION CURRENT DRUG THERAPY] Onset: 3 Episodic Other [...] Acute and unspecified renal failure (2 sources) [id number] renal failure; Translations: [Acute kidney failure, unspecified] [...] [Ratio] 12.6 % 11.8 - 14.4 % [facility] Hematocrit (Bld) [Volume fraction] 39.5 % Low 40.7 - 50.3 % [facility] Hemoglobin (Bld) [Mass/Vol] 12.6 g/dL Low 13.0 - 17.0 g/dL [facility] Interpretation and review of laboratory results Abnormal [facility] MCH (RBC) [Entitic mass] 29.2 pg 25.2 - 33.5 pg [facility] MCHC (RBC) [Mass/Vol] 31.9 g/dL 28.4 - 34.8 g/dL [facility] MCV (RBC) [Entitic vol] 91.6 fL 82.6 - 102.9 fL [facility] Nucleated RBC/100 WBC (Bld) [Ratio] 0 % 0.0 per 100 WBC [facility] Platelet mean volume (Bld) [Entitic vol] 10.8 fL 8.1 - 13.5 fL [facility] Platelets (Bld) [#/Vol] 352 10*3/uL [facility] RBC (Bld) [#/Vol] 4.31 10*6/uL 4.21 - 5.7 7 m/uL [facility] WBC other (Bld) [#/Vol] 7 B on [facility] Erythrocyte distribution width (RBC) [Ratio] 12.6 % Normal 11.8-14.4 [facility] Comment on above: Performed By: #### U MICAO, CBC, UAX, MG, RENP, URTPRT, URI ####[address] [place], [place] 118[address]83 Lab Director: Eder Herrera MD#### PTHNCA ####[address] [id number] Lab Director: Jimenez Pruett MD Hematocrit (Bld) [Volume fraction] 39.5 % Low 40.7-50.3 [facility] Comment on above: Performed By: #### U MICAO, CBC, UAX, MG, RENP, URTPRT, URI ####[address] [place], [place] 5838[address] Lab Director: Eder Herrera MD#### PTHNCA ####[address] [address] Lab Director: Jimenez Pruett MD Hemoglobin (Bld) [Mass/Vol] 12.6 g/dL Low 13.0-17.0 [facility] Comment on above: Performed By: #### U MICAO, CBC, UAX, MG, RENP, URTPRT, URI ####[address] [place], [place] 9673183 Lab Director: Eder Herrera MD#### PTHNCA ####[address] [id number] Lab Director: Jimenez Pruett MD MCH (RBC) [Entitic mass] 29.2 pg Normal 25.2-33.5 [facility] Comment on above: Performed By: #### U MICAO, CBC, UAX, MG, RENP, URTPRT, URI ####[address] [place], [place] 6764283 Lab Director: Eder Herrera MD#### PTHNCA ####[address] [id number] Lab Director: Jimenez Pruett MD MCHC (RBC) [Mass/Vol] 31.9 g/dL Normal 28.4-34.8 [facility] Comment on above: Performed By: #### U MICAO, CBC, UAX, MG, RENP, URTPRT, URI ####[address] [place] [id number] [facility] Director: Eder Herrera MD#### PTHNCA ####[address] [address] Lab Director: Jimenez Pruett MD MCV (RBC) [Entitic vol] 91.6 fL Normal 82.6-102.9 M [facility] Comment on above: Performed By: #### U MICAO, CBC, UAX, MG, RENP, URTPRT, URI ####[address] [place] 353[address]83 Lab Director: Eder Herrera MD#### PTHNCA ####[address] [address] Lab Director: Jimenez Pruett MD NRBC Automated 0.0 per 100 WBC Normal 0.0 [facility] Comment on above: Performed By: #### U MICAO, CBC, UAX, MG, RENP, URTPRT, URI ####[address] [place] 353[address]83 Lab Director: Eder Herrera MD#### PTHNCA ####[address] [place] [address] Lab Director: Jimenez Pruett MD Platelet mean volume (Bld) [Entitic vol] 10.8 fL Normal 8.1-13.5 [facility] Comment on above: Performed By: #### U MICAO, CBC, UAX, MG, RENP, URTPRT, URI ####[address] [place] [address]38([facility])[phone] Director: Eder Herrera MD#### PTHNCA ####[address] [phone] Director: Jimenez Pruett MD Platelets (Bld) [#/Vol] 352 10*3/uL Normal 138-453 [facility] Comment on above: Performed By: #### U MICAO, CBC, UAX, MG, RENP, URTPRT, URI ####[address] [place] [address]([facility])[phone] Director: Eder Herrera MD#### PTHNCA ####[place], [place] [address])[phone] Director: Jimenez Pruett MD RBC (Bld) [#/Vol] 4.31 10*6/uL Normal 4.21-5.77 [facility] Comment on above: Performed By: #### U MICAO, CBC, UAX, MG, RENP, URTPRT, URI ####[address] [place] [address]([facility])[phone] Director: Eder Herrera MD#### PTHNCA ####[place], [place] [address])[phone] Director: Jimenez Pruett MD WBC (Bld) [#/Vol] 7.0 10*3/uL Normal 3.5-11.3 [facility] Comment on above: Performed By: #### U MICAO, CBC, UAX, MG, RENP, URTPRT, URI ####[address] [place] [address] Lab Director: Eder Herrera MD#### PTHNCA ####[facility] [place], [place] 7739208 Lab Director: Jimenez Pruett MD Magnesiumon 12-06-2024 Magnesium [Mass/Vol] 2.4 mg/dL 1.6 - 2 .4 mg/dL [facility] Magnesium [Mass/Vol] 2.4 mg/dL Normal 1.6-2.4 [facility] Comment on above: Performed By: #### U MICAO, CBC, UAX, MG, RENP, URTPRT, URI ####[address] [place] [address] lab Director: Eder Herrera MD#### PTHNCA ####[place] [address] [place], [place] 0107708 Lab Director: Jimenez Pruett MD Microscopic Urinalysison Epithelial cells LM.HPF (Urine sed) [#/Area] 0 TO 2 [facility] RBC LM.HPF (Urine sed) [#/Area] 0 TO 2 [facility] WBC LM.HPF (Urine sed) [#/Area] None [facility] No Panel Informationon 12-06 [facility] PTH, Intacton 12-06-2024 Interpretation and review of laboratory results Abnormal [facility] Parathyrin.intact [Mass/Vol] 164.0 pg/mL High 17.9 - 58.6 pg/mL [facility] PTH, Intact 164.0 pg/mL High 17.9-58.6 [facility] Comment on above: Performed By: #### U MICAO, CBC, UAX, MG, RENP, URTPRT, URI ####[address] [place] [address] [facility] Director: Eder Herrera MD#### PTHNCA ####[place] [place] [address] Lab Director: Jimenez Pruett MD Protein / creatinine ratio, urineon 12-06-2024 Creatinine (U) [Mass/Vol] 59.5 mg/dL 39.0 - 259.0 mg/dL [facility] Protein (U) [Mass/Vol] 10 mg/dL [facility] Comment on above: No normal range esta blished. Urine Total Protein Creatinine Ratio 0.17 0.00 - 0.20 [facility] Protein,Tot,Maxie Uron 2024 Creatinine [Mass/Vol] 59.5 mg/dL Normal 39.0-259.0 [facility] Comment on above: Performed By: #### U MICAO, CBC, UAX, MG, RENP, URTPRT, URI ####[address] [place] [id number]([facility])[phone] Director: Eder Herrera MD#### PTHNCA ####[place] [address] Lab Director: Jimenez Pruett MD Tot Prot. Conc. 10 mg/dL Normal [facility] Comment on above: Result Comment: No n ormal range established. Performed By: #### U MICAO, CBC, UAX, MG, RENP, URTPRT, URI ####[address] [place] [phone] Lab Director: Eder Herrera MD#### PTHNCA ####[place] [address] [place] 2438308 Lab Director: Jimenez Pruett MD TP/Cre Ratio 0.17 Normal 0.00-0.20 [facility] Comment on above: Performed By: #### U MICAO, CBC, UAX, MG, RENP, URTPRT, URI ####[facility] [place] [address] Lab Director: Eder Herrera MD#### PTHNCA ####[facility] [address] [place], [place] 9524008 lab Director: Jimenez Pruett MD Renal Function Panelon 12-06 Albumin [Mass/Vol] 4.2 g/dL 3.5 - 5.2 g/dL [facility] Anion gap [Moles/Vol] 12 mmol/L 9 - 16 mmol/L [facility] Calcium [Mass/Vol] 10.1 mg/dL 8.6 - 10. 4 mg/dL [facility] Chloride [Moles/Vol] 103 mmol/L 98 - 10 7 mmol/L [facility] CO2 [Moles/Vol] 22 mmol/L 20 - 31 mmol/L [facility] Creatinine [Mass/Vol] 1.4 mg/dL High 0.70 - 1.20 mg/dL [facility] Est, Glom Filt Rate 54 Low - PINF [facility] Comment on above: These results are not [...] 128 mg/dL High 74 - 99 mg/dL [facility] [employer] [facility] Interpretation and review of laboratory results Abnormal [facility] Phosphate [Mass/Vol] 2.3 mg/dL Low 2.5 - 4 .5 mg/dL [facility] Potassium [Moles/Vol] 4.1 mmol/L 3.7 - 5.3 mmol/L [facility] [employer] [facility] Sodium [Moles/Vol] 137 mmol/L 136 - 145 mmol/L [facility] Urea nitrogen [Mass/Vol] 34 mg/dL High 8 - 23 mg/dL [facility] Urea nitrogen/Creatinine [Mass ratio] 24 mg/mg High 9 - 20 [facility] Albumin [Mass/Vol] 4.2 g/dL Normal 3.5-5.2 [facility] Comment on above: Performed By: #### U MICAO, CBC, UAX, MG, RENP, URTPRT, URI ####[address] [place], [place] [id number] [facility] Director: Eder Herrera MD#### PTHNCA ####[place] [address] [place], [place] 3369608 Lab Director: Jimenez Pruett MD Anion gap [Moles/Vol] 12 mmol/L Normal 9-16 [facility] Comment on above: Performed By: #### U MICAO, CBC, UAX, MG, RENP, URTPRT, URI ####[address] [place], [place] 8[address]83 [facility] Director: Eder Herrera MD#### PTHNCA ####[address] [phone] Lab Director: Jimenez Pruett MD BUN/CRE Ratio 24 High - [facility] Comment on above: Performed By: #### U MICAO, CBC, UAX, MG, RENP, URTPRT, URI ####[address] [place], [place] 8534383 Lab Director: Eder Herrera MD#### PTHNCA ####[address] 1278608 Lab Director: Jimenez Pruett MD Calcium [Mass/Vol] 10.1 mg/dL Normal 8.6-10.4 [facility] Comment on above: Performed By: #### U MICAO, CBC, UAX, MG, RENP, URTPRT, URI ####[address] [place] [address] Lab Director: Eder Herrera MD#### PTHNCA ####[facility] [place] [address] Lab Director: Jimenez Pruett MD Chloride [Moles/Vol] 103 mmol/L Normal 98-107 [facility] Comment on above: Performed By: #### U MICAO, CBC, UAX, MG, RENP, URTPRT, URI ####[address] [place], [place] 630[address]83 Lab Director: Eder Herrera MD#### PTHNCA ####[place] [place] [address] Lab Director: Jimenez Pruett MD CO2 [Moles/Vol] 22 mmol/L Normal 20-31 [facility] Comment on above: Performed By: #### U MICAO, CBC, UAX, MG, RENP, URTPRT, URI ####[address] [place] [address] Lab Director: Eder Herrera MD#### PTHNCA ####[address] [address] Lab Director: Jimenez Pruett MD Creatinine [Mass/Vol] 1.4 mg/dL High 0.70-1.20 [facility] Comment on above: Performed By: #### U MICAO, CBC, UAX, MG, RENP, URTPRT, URI ####[address] [place] [address] Lab Director: Eder Herrera MD#### PTHNCA ####[address] [address] Lab Director: Jimenez Pruett MD GFR/1.73 sq M.predicted among non-blacks MDRD (S/P/Bld) [Vol rate/Area] 54 mL/min/{1.73_m2} Low >60 [facility] Comment on above: Result Comment: Thes e [...] MICAO, CBC, UAX, MG, RENP, URTPRT, URI ####[address] [place], [place] 9[address]83 Lab Director: Eder Herrera MD#### PTHNCA ####[place] [address] [place], [place] 1873808 Lab Director: Jimenez Pruett MD Glucose [Mass/Vol] 128 mg/dL High 74-99 [facility] Comment on above: Performed By: #### U MICAO, CBC, UAX, MG, RENP, URTPRT, URI ####[address] [place], [place] 5766183 Lab Director: Eder Herrera MD#### PTHNCA ####[address] 9209008 Lab Director: Jimenez Pruett MD Phosphorus, Inorg. 2.3 mg/dL Low 2.5-4.5 [facility] Comment on above: Performed By: #### U MICAO, CBC, UAX, MG, RENP, URTPRT, URI ####[address] [place], [place] 6563083 Lab Director: Eder Herrera MD#### PTHNCA ####[address] [place], [place] 6461608 Lab Director: Jimenez Pruett MD Potassium [Moles/Vol] 4.1 mmol/L Normal 3.7-5.3 [facility] Comment on above: Performed By: #### U MICAO, CBC, UAX, MG, RENP, URTPRT, URI ####[address] [place], [place] 5330683 Lab Director: Eder Herrera MD#### PTHNCA ####[address] [id number] Lab Director: Jimenez Pruett MD Sodium [Moles/Vol] 137 mmol/L Normal 136-145 [facility] Comment on above: Performed By: #### U MICAO, CBC, UAX, MG, RENP, URTPRT, URI ####[address] [place] 353[address]83 [facility] Director: Eder Herrera MD#### PTHNCA ####[address] [address] Lab Director: Jimenez Pruett MD Urea nitrogen [Mass/Vol] 34 mg/dL High 8-23 [facility] Comment on above: Performed By: #### U MICAO, CBC, UAX, MG, RENP, URTPRT, URI ####[address] , [facility] Lab Director: Eder Herrera MD#### PTHNCA ####[address] [address] Lab Director: Jimenez Pruett MD UA w/Reflex Cultureon 2024 Clarity (U) Clear Normal CLEAR [facility] Comment on above: Performed By: #### U MICAO, CBC, UAX, MG, RENP, URTPRT, URI ####[address] [place], [place] 977[address]83 Lab Director: Eder Herrera MD#### PTHNCA ####[address] 7883208 Lab Director: Jimenez Pruett MD Color (U) Yellow Normal YEL [facility] Comment on above: Performed By: #### U MICAO, CBC, UAX, MG, RENP, URTPRT, URI ####[address] [place], [place] 516[address]83 Lab Director: Eder Herrera MD#### PTHNCA ####[address] 9370808 Lab Director: Jimenez Pruett MD Leukocyte esterase Test strip Ql (U) Negative Normal NEG [facility] Comment on above: Performed By: #### U MICAO, CBC, UAX, MG, RENP, URTPRT, URI ####[address] [place] [address]83 [facility] Director: Eder Herrera MD#### PTHNCA ####[address] [address] Lab Director: Jimenez Pruett MD Bilirubin, SemiQt,Ur Negative Normal NEG [facility] Comment on above: Performed By: #### U MICAO, CBC, UAX, MG, RENP, URTPRT, URI ####[address] [place] [address]1283 [facility] Director: Eder Herrera MD#### PTHNCA ####[address] [address] Lab Director: Jimenez Pruett MD Blood, Urine Negative Normal NEG [facility] Comment on above: Performed By: #### U MICAO, CBC, UAX, MG, RENP, URTPRT, URI ####[address] [place], [place] 2565583 Lab Director: Eder Herrera MD#### PTHNCA ####[place] [place] [address] Lab Director: Jimenez Pruett MD Glucose Ql (U) 3+ mg/dL Abnormal NEG [facility] Comment on above: Performed By: #### U MICAO, CBC, UAX, MG, RENP, URTPRT, URI ####[address] [place] [address] [facility] Director: Eder Herrera MD#### PTHNCA ####[address] [address] Lab Director: Jimenez Pruett MD Ketones Ql (U) Negative Normal NEG [facility] Comment on above: Performed By: #### U MICAO, CBC, UAX, MG, RENP, URTPRT, URI ####[address] [place] [address] [facility] Director: Eder Herrera MD#### PTHNCA ####[address] [address] Lab Director: Jimenez Pruett MD Nitrite,Ur Negative Normal NEG [facility] Comment on above: Performed By: #### U MICAO, CBC, UAX, MG, RENP, URTPRT, URI ####[address] [place] [address] Lab Director: Eder Herrera MD#### PTHNCA ####[address] [address] Lab Director: Jimenez Pruett MD PH,Ur 6.0 Normal 5.0-9.0 [facility] Comment on above: Performed By: #### U MICAO, CBC, UAX, MG, RENP, URTPRT, URI ####[address] [place] [address] [facility] Director: Eder Herrera MD#### PTHNCA ####[address] [place] [address] Lab Director: Jimenez Pruett MD Protein Ql (U) Negative Normal NEG [facility] Comment on above: Performed By: #### U MICAO, CBC, UAX, MG, RENP, URTPRT, URI ####[address] [place], [place] 724[address]83 [facility] Director: Eder Herrera MD#### PTHNCA ####[address] [address] Lab Director: Jimenez Pruett MD Spec. Purdy,Ur <1.005 Low 1.010-1.020 [facility] Comment on above: Performed By: #### U MICAO, CBC, UAX, MG, RENP, URTPRT, URI ####[address] [place], [place] 5773383 Lab Director: Eder Herrera MD#### PTHNCA ####[address] [address] Lab Director: Jimenez Pruett MD Urobilinogen,Ur Normal Normal 0.0-1.0 [facility] Comment on above: Performed By: #### U MICAO, CBC, UAX, MG, RENP, URTPRT, URI ####[address] [place], [place] 94[address]83 Lab Director: Eder Herrera MD#### PTHNCA ####[address] [place] [place] [address] Lab Director: Jimenez Pruett MD Uric Acidon 12-06-2024 Urate [Mass/Vol] 5.5 mg/dL 3.4 - 7.0 mg/dL [facility] Urate [Mass/Vol] 5.5 mg/dL Normal 3.4-7.0 [facility] Comment on above: Performed By: #### U MICAO, CBC, UAX, MG, RENP, URTPRT, URI ####[facility] [place] [address] lab Director: Eder Herrera MD#### PTHNCA ####[address] [place], [place] 0335[address] lab Director: Jimenez Pruett MD Urinalysis with Reflex to Cu ltureon 12-06-2024 Bilirubin Ql (U) Negative NEGATIVE [facility] Glucose Test strip (U) [Mass/Vol] 3+ Abnormal NEGATIVE mg/dL [facility] Hemoglobin Auto test strip Ql (U) Negative NEGATIVE [facility] Interpretation and review of laboratory results Abnormal [facility] Ketones (U) [Mass/Vol] Negative NEGAT PAO mg/dL [facility] Nitrite Ql (U) Negative NEGATIVE [facility] pH (U) 6 [pH] 5.0 - 9.0 [facility] Protein (U) [Mass/Vol] Negative NEGAT PAO mg/dL [facility] Specific gravity (U) [Rel density] Low 1.010 - 1.020 [facility] Urobilinogen Qn (U) Normal 0.0 - 1. 0 EU/dL [facility] Urinalysis,Microon 5 Epithelial cells LM Ql (Urine sed) 0 TO 2 Normal 0-5 [facility] Comment on above: Performed By: #### U MICAO, CBC, UAX, MG, RENP, URTPRT, URI ####[facility] [place] [address] Lab Director: Eder Herrera MD#### PTHNCA ####[address] [place], [place] [address]18[address] Lab Director: Jimenez Pruett MD Urine RBC's 0 TO 2 Normal 0-2 [facility] Comment on above: Performed By: #### U MICAO, CBC, UAX, MG, RENP, URTPRT, URI ####[facility] - [address] [place] [address] Lab Director: Eder Herrera MD#### PTHNCA ####[facility] [id number] [place], [place] [id number] Lab Director: Jimenez Pruett MD Urine WBC's None Normal 0-5 [facility] Comment on above: Performed By: #### U MICAO, CBC, UAX, MG, RENP, URTPRT, URI ####[facility] , [place] [id number] lab Director: Eder Herrera MD#### PTHNCA ####[address] [place], [place] [id number] lab Director: Jimenez Pruett MD Basophils Auto (Bld) [#/Vol] Ordered By: Jeremias Sullivan on 11-15-2024 Basophils (Bld) [#/Vol] 0.0 10 3/uL 0.0-0.1 [facility] Basophils/100 WBC Auto (Bld) Ordered By: Jeremias Sullivan on 11-15-2024 Basophils/100 WBC (Bld) 0.2 % 0.2-2.0 [facility] Eosinophils/100 WBC Auto (Bl d)Ordered By: Jeremias Sullivan on 11-15-2024 Eosinophils/100 WBC (Bld) 1.1 % 0.9-7.0 [facility] Erythrocyte distribution wid th Auto (RBC) [Ratio]Ordered By: Jeremias Sullivan on 11-15-2024 Erythrocyte distribution width (RBC) [Ratio] 13.0 % 11.0-15.0 [facility] Estimated glomerular filtrat ion rate (GFR) non- AmericanOrdered By: Jeremias Sullivan on 11-15-2024 GFR/1.73 sq M.predicted among non-blacks MDRD (S/P/Bld) [Vol rate/Area] 43 mL/min/{1.73_m2} Low >=60 mL/min/1.73 m 2 [facility] Hematocrit Auto (Bld) [Volum e fraction]Ordered By: Jeremias Sullivan on 11-15-2024 Hematocrit (Bld) [Volume fraction] 37.1 % Low 42.0-54.0 [facility] Hemoglobin [Mass/volume] in BloodOrdered By: Jeremias Sullivan on 11-15-2024 Hemoglobin (Bld) [Mass/Vol] 12.5 g/dL Low 14.0-18.0 [facility] Laboratory - Chemistry and C hemistry - challengeOrdered By: Jeremias Sullivan on 11-15-2024 Bilirubin Ql (U) Negative NEGATIVE [facility] Glucose (U) [Mass/Vol] mg/dL Abnormal NEGATIVE Fi [facility] Ketones Ql (U) Negative NEGATIVE [facility] pH (U) 7.5 [pH] 5.0-9.0 [facility] Specific gravity (U) [Rel density] <=1.005 Abnormal 1.005-1.025 [facility] Urobilinogen Qn (U) 0.2 {Fabiana'U}/dL 0.2-1.0 [facility] Calcium [Mass/Vol] 10.2 mg/dL High 8.5-10.1 [facility] Chloride [Moles/Vol] 101 mmol/L 98-107 [facility] CO2 [Moles/Vol] 28.8 mmol/L 21.0-32.0 [facility] Creatinine [Mass/Vol] 1.63 mg/dL High 0.70-1.30 [facility] GFR/1.73 sq M.predicted MDRD (S/P/Bld) [Vol rate/Area] 52 mL/min/{1.73_m2} Low >=60 mL/min/1.73 m 2 [facility] Glucose [Mass/Vol] 126 mg/dL High 74-106 [facility] Potassium [Moles/Vol] 4.1 mmol/L 3.5-5.1 [facility] Sodium [Moles/Vol] 138 mmol/L 136-145 [facility] Urea nitrogen [Mass/Vol] 34.0 mg/dL High 7.0-18.0 [facility] Urea nitrogen/Creatinine [Mass ratio] 20.9 mg/mg [facility] Laboratory - Hematology and Cell countsOrdered By: Jeremias Sullivan on 11-15-2024 Immature granulocytes/100 WBC (Bld) 0.3 % 0.0-0.5 [facility] Laboratory - Specimen inform ationOrdered By: Jeremias Sullivan on 11-15-2024 Appearance (U) CLEAR CLEAR [facility] Color (U) LT. YELLOW YELLOW [facility] Laboratory - UrinalysisOrder ed By: Jeremias Sullivan on 11-15-2024 Leukocyte esterase Test strip Ql (U) Negative NEGATIVE [facility] Mucus Ql (Urine sed) NONE SEEN NONE SEEN [facility] Nitrite Ql (U) Negative NEGATIVE [facility] Protein Ql (U) Negative NEG/TRACE [facility] Leukocytes [#/volume] correc yaneth for nucleated erythrocytes in Blood by Automated counOrdered By: Jeremias Sullivan on 11-15-2024 WBC corrected for nucl RBC Auto (Bld) [#/Vol] 8.8 10 3/uL 4.0-11.0 [facility] Lymphocytes Auto (Bld) [#/Vo l]Ordered By: Jermeias Sullivan on 11-15-2024 Lymphocytes (Bld) [#/Vol] 1.4 10 3/uL 1.2-3.8 [facility] Lymphocytes/100 WBC Auto (Bl d)Ordered By: Jeremias Sullivan on 11-15-2024 Lymphocytes/100 WBC (Bld) 15.8 % Low 20.5-60.0 [facility] MCH Auto (RBC) [Entitic mass ]Ordered By: Jeremias Sullivan on 11-15-2024 MCH (RBC) [Entitic mass] 30.8 pg 25.9-34.0 [facility] MCHC Auto (RBC) [Mass/Vol]Or dered By: Jeremias Sullivan on 11-15-2024 MCHC (RBC) [Mass/Vol] 33.7 g/dL 29.9-35.2 [facility] MCV Auto (RBC) [Entitic vol] Ordered By: Jeremias Sullivan on 11-15-2024 MCV (RBC) [Entitic vol] 91.4 fL 80.0-94.0 [facility] Monocytes Auto (Bld) [#/Vol] Ordered By: Jeremias Sullivan on 11-15-2024 Monocytes (Bld) [#/Vol] 1.0 10 3/uL High 0.3-0.8 [facility] Monocytes/100 WBC Auto (Bld) Ordered By: Jeremias Sullivan on 11-15-2024 Monocytes/100 WBC (Bld) 11.2 % 1.7-12.0 [facility] Neutrophils Auto (Bld) [#/Vo l]Ordered By: Jeremias Sullivan on 11-15-2024 Neutrophils (Bld) [#/Vol] 6.3 10 3/uL 1.4-6.5 [facility] Neutrophils/100 WBC Auto (Bl d)Ordered By: Jeremias Sullivan on 11-15-2024 Neutrophils/100 WBC (Bld) 71.4 % 43.0-75.0 [facility] No Panel InformationOrdered By: Jeremias Sullivan on 11-15-2024 Urine Bacteria TRACE #/HPF Abnormal NONE SEEN [facility] Urine Culture Reflexed NO [facility] Urine Occult Blood Negative NEGATIVE [facility] Urine Other Casts NONE SEEN #/LPF NONE SEEN [facility] Urine Other Crystals None Seen #/HPF None Seen [facility] Urine RBC NONE SEEN #/HPF 0-2 [facility] Urine Squamous Epithelial Cells NONE SEEN #/LPF NONE/RARE [facility] Urine WBC NONE SEEN #/HPF NONE SEEN [facility] Eosinophils # (Auto) 0.1 10 3/uL 0.0-0.7 [facility] Immature Granulocyte # (Auto) 0.03 10 3/uL 0.00-0.03 [facility] Platelet mean volume Auto (B ld) [Entitic vol]Ordered By: Jeremias Sullivan on 11-15-2024 Platelet mean volume (Bld) [Entitic vol] 10.7 fL 9.5-13.5 [facility] Platelets Auto (Bld) [#/Vol] Ordered By: Jeremias Sullivan on 11-15-2024 Platelets (Bld) [#/Vol] 308 10 3/uL 150-450 [facility] RBC Auto (Bld) [#/Vol]Ordere d By: Jeremias Sullivan on 11-15-2024 RBC (Bld) [#/Vol] 4.06 10 6/uL Low 4.70-6.10 [facility] Serum or plasma anion gap de terminationOrdered By: Jeremias Sullivan on 11-15-2024 Anion gap [Moles/Vol] 12.3 mmol/L [facility] Glucose, Whole Bloodon 11-11 Glucose [Mass/Vol] 184 mg/dL High 74 - 100 mg/dL [facility] Glucose [Mass/Vol] 196 mg/dL High 74 - 100 mg/dL [facility] Glucose [Mass/Vol] 184 mg/dL High 74-100 [facility] Glucose [Mass/Vol] 196 mg/dL High 74-100 [facility] No Panel Informationon 11-11 Interpretation and review of laboratory results Abnormal [facility] Surgical Pathology Reporton 11-11-2024 Surgical Pathology Report Normal [facility] CBCon 11-01-2024 Erythrocyte distribution width (RBC) [Ratio] 13 % 11.8 - 14.4 % [facility] Hematocrit (Bld) [Volume fraction] 38.9 % Low 40.7 - 50.3 % [facility] Hemoglobin (Bld) [Mass/Vol] 12.7 g/dL Low 13.0 - 17.0 g/dL [facility] Interpretation and review of laboratory results Abnormal [facility] MCH (RBC) [Entitic mass] 31 pg 25.2 - 33.5 pg [facility] MCHC (RBC) [Mass/Vol] 32.6 g/dL 28.4 - 34.8 g/dL [facility] MCV (RBC) [Entitic vol] 94.9 fL 82.6 - 102.9 fL [facility] Nucleated RBC/100 WBC (Bld) [Ratio] 0 % 0.0 per 100 WBC [facility] Platelet mean volume (Bld) [Entitic vol] 10.7 fL 8.1 - 13.5 fL [facility] Platelets (Bld) [#/Vol] 279 10*3/uL [facility] RBC (Bld) [#/Vol] 4.1 10*6/uL Low 4.21 - 5.7 7 m/uL [facility] WBC other (Bld) [#/Vol] 7.4 [facility] on [facility] Erythrocyte distribution width (RBC) [Ratio] 13.0 % Normal 11.8-14.4 [facility] Comment on above: Performed By: #### R ENP, UAX, CBC, URI, URTPRT, UMICAO, MG ####[address] [place] [address] [facility] Director: Eder Herrera MD#### PTHNCA ####[place] [id number] Lab Director: Jimenez Pruett MD Hematocrit (Bld) [Volume fraction] 38.9 % Low 40.7-50.3 [facility] Comment on above: Performed By: #### R ENP, UAX, CBC, URI, URTPRT, UMICAO, MG ####[address] [place] [id number] [facility] Director: Eder Herrera MD#### PTHNCA ####[address] [phone] Lab Director: Jimenez Pruett MD Hemoglobin (Bld) [Mass/Vol] 12.7 g/dL Low 13.0-17.0 [facility] Comment on above: Performed By: #### R ENP, UAX, CBC, URI, URTPRT, UMICAO, MG ####[address] [place] [address] Lab Director: Eder Herrera MD#### PTHNCA ####[address] [address] Lab Director: Jimenez Pruett MD MCH (RBC) [Entitic mass] 31.0 pg Normal 25.2-33.5 [facility] Comment on above: Performed By: #### R ENP, UAX, CBC, URI, URTPRT, UMICAO, MG ####[address] [place] [id number] Lab Director: Eder Herrera MD#### PTHNCA ####[place] [address] Lab Director: Jimenez Pruett MD MCHC (RBC) [Mass/Vol] 32.6 g/dL Normal 28.4-34.8 [facility] Comment on above: Performed By: #### R ENP, UAX, CBC, URI, URTPRT, UMICAO, MG ####[address] [place] [address] Lab Director: Eder Herrera MD#### PTHNCA ####[place] [address] Lab Director: Jimenez Pruett MD MCV (RBC) [Entitic vol] 94.9 fL Normal 82.6-102.9 M [facility] Comment on above: Performed By: #### R ENP, UAX, CBC, URI, URTPRT, UMICAO, MG ####[address] [place] [id number] Lab Director: Eder Herrera MD#### PTHNCA ####[address] [address] lab Director: Jimenez Pruett MD NRBC Automated 0.0 per 100 WBC Normal 0.0 [facility] Comment on above: Performed By: #### R ENP, UAX, CBC, URI, URTPRT, UMICAO, MG ####[address] , [place] [address] Lab Director: Eder Herrera MD#### PTHNCA ####[address] [place], [place] [phone] Director: Jimenez Pruett MD Platelet mean volume (Bld) [Entitic vol] 10.7 fL Normal 8.1-13.5 [facility] Comment on above: Performed By: #### R ENP, UAX, CBC, URI, URTPRT, UMICAO, MG ####[address] , [facility] Lab Director: Eder Herrera MD#### PTHNCA ####[address] [place], [place] [address])[phone] Director: Jimenez Pruett MD Platelets (Bld) [#/Vol] 279 10*3/uL Normal 138-453 [facility] Comment on above: Performed By: #### R ENP, UAX, CBC, URI, URTPRT, UMICAO, MG ####[address] , [facility] Lab Director: Eder Herrera MD#### PTHNCA ####[address] [place], [place] [address])[phone] Director: Jimenez Pruett MD RBC (Bld) [#/Vol] 4.10 10*6/uL Low 4.21-5.77 [facility] Comment on above: Performed By: #### R ENP, UAX, CBC, URI, URTPRT, UMICAO, MG ####[address] [place] [address] Lab Director: Eder Herrera MD#### PTHNCA ####[address], [place] 8144[address] Lab Director: Jimenez Pruett MD WBC (Bld) [#/Vol] 7.4 10*3/uL Normal 3.5-11.3 [facility] Comment on above: Performed By: #### R ENP, UAX, CBC, URI, URTPRT, UMICAO, MG ####[facility] [place] [address] lab Director: Eder Herrera MD#### PTHNCA ####[address] [place], [place] 6084[address] lab Director: Jimenez Pruett MD Magnesiumon 11-01-2024 Magnesium [Mass/Vol] 1.9 mg/dL 1.6 - 2 .4 mg/dL [facility] Magnesium [Mass/Vol] 1.9 mg/dL Normal 1.6-2.4 [facility] Comment on above: Performed By: #### R ENP, UAX, CBC, URI, URTPRT, UMICAO, MG ####[address] [place] [address] lab Director: Eder Herrera MD#### PTHNCA ####[address] [place], [place] [phone] lab Director: Jimenez Pruett MD Microscopic Urinalysison Epithelial cells LM.HPF (Urine sed) [#/Area] 10 TO 20 [facility] RBC LM.HPF (Urine sed) [#/Area] 0 TO 2 [facility] WBC LM.HPF (Urine sed) [#/Area] 2 TO 5 [facility] No Panel Informationon 11-01 [facility] PTH, Intacton 11-01-2024 Interpretation and review of laboratory results Abnormal [facility] Parathyrin.intact [Mass/Vol] 164.0 pg/mL High 17.9 - 58.6 pg/mL [facility] PTH, Intact 164.0 pg/mL High 17.9-58.6 [facility] Comment on above: Performed By: #### R ENP, UAX, CBC, URI, URTPRT, UMICAO, MG ####[facility] [place], [place] [id number] Lab Director: Eder Herrera MD#### PTHNCA ####[address] [place], [place] 1437[address] Lab Director: Jimenez Pruett MD Protein / creatinine ratio, urineon 11-01-2024 Creatinine (U) [Mass/Vol] 39.1 mg/dL 39.0 - 259.0 mg/dL [facility] Protein (U) [Mass/Vol] mg/dL mg/dL [facility] Comment on above: No normal range esta blished. Urine Total Protein Creatinine Ratio Can not be calculated 0.00 - 0.20 [facility] Protein,Tot,Maxie Uron 2024 Creatinine [Mass/Vol] 39.1 mg/dL Normal 39.0-259.0 [facility] Comment on above: Performed By: #### R ENP, UAX, CBC, URI, URTPRT, UMICAO, MG ####[address] [place], [place] [id number] Lab Director: Eder Herrera MD#### PTHNCA ####[address] [phone] Lab Director: Jimenez Pruett MD Tot Prot. Conc. <6 Normal [facility] Comment on above: Result Comment: No n ormal range established. Performed By: #### R ENP, UAX, CBC, URI, URTPRT, UMICAO, MG ####[facility] [place], [place] 8676583 Lab Director: Eder Herrera MD#### PTHNCA ####[facility] [id number] [place] [address] Lab Director: Jimenez Pruett MD TP/Cre Ratio Can not be calculated Normal 0.00-0.20 [facility] Comment on above: Performed By: #### R ENP, UAX, CBC, URI, URTPRT, UMICAO, MG ####[facility] [place] [address] Lab Director: Eder Herrera MD#### PTHNCA ####[facility] [place], [place] 55918[address] lab Director: Jimenez Pruett MD Renal Function Panelon 11-01 Albumin [Mass/Vol] 4.1 g/dL 3.5 - 5.2 g/dL [facility] Anion gap [Moles/Vol] 12 mmol/L 9 - 16 mmol/L [facility] Calcium [Mass/Vol] 10 mg/dL 8.6 - 10. 4 mg/dL [facility] Chloride [Moles/Vol] 102 mmol/L 98 - 10 7 mmol/L [facility] CO2 [Moles/Vol] 23 mmol/L 20 - 31 mmol/L [facility] Creatinine [Mass/Vol] 1.6 mg/dL High 0.70 - 1.20 mg/dL [facility] Est, Glom Filt Rate 49 Low - PINF [facility] Comment on above: These results are not [...] 183 mg/dL High 74 - 99 mg/dL [facility] Interpretation and review of laboratory results Abnormal [facility] Phosphate [Mass/Vol] 3.2 mg/dL 2.5 - 4 .5 mg/dL [facility] Potassium [Moles/Vol] 4.7 mmol/L 3.7 - 5.3 mmol/L [facility] Sodium [Moles/Vol] 137 mmol/L 136 - 145 mmol/L [facility] Urea nitrogen [Mass/Vol] 30 mg/dL High 8 - 23 mg/dL [facility] Urea nitrogen/Creatinine [Mass ratio] 19 mg/mg 9 - 20 [facility] Albumin [Mass/Vol] 4.1 g/dL Normal 3.5-5.2 [facility] Comment on above: Performed By: #### R ENP, UAX, CBC, URI, URTPRT, UMICAO, MG ####[address] [place] [address] lab Director: Eder Herrera MD#### PTHNCA ####[address] [id number] Lab Director: Jimenez Pruett MD Anion gap [Moles/Vol] 12 mmol/L Normal 9-16 [facility] Comment on above: Performed By: #### R ENP, UAX, CBC, URI, URTPRT, UMICAO, MG ####[address] [place] [address] lab Director: Eder Herrera MD#### PTHNCA ####[address] [phone] lab Director: Jimenez Pruett MD BUN/CRE Ratio 19 Normal 9-20 [facility] Comment on above: Performed By: #### R ENP, UAX, CBC, URI, URTPRT, UMICAO, MG ####[address] [place] [address] lab Director: Eder Herrera MD#### PTHNCA ####[address] [id number] Lab Director: Jimenez Pruett MD Calcium [Mass/Vol] 10.0 mg/dL Normal 8.6-10.4 [facility] Comment on above: Performed By: #### R ENP, UAX, CBC, URI, URTPRT, UMICAO, MG ####[address] [place], [place] 0419983 Lab Director: Eder Herrera MD#### PTHNCA ####[address] [id number] Lab Director: Jimenez Pruett MD Chloride [Moles/Vol] 102 mmol/L Normal 98-107 [facility] Comment on above: Performed By: #### R ENP, UAX, CBC, URI, URTPRT, UMICAO, MG ####[address] [place] 353[address]83 Lab Director: Eder Herrera MD#### PTHNCA ####[address] [address] Lab Director: Jimenez Pruett MD CO2 [Moles/Vol] 23 mmol/L Normal 20-31 [facility] Comment on above: Performed By: #### R ENP, UAX, CBC, URI, URTPRT, UMICAO, MG ####[address] [place], [place] 8655483 Lab Director: Eder Herrera MD#### PTHNCA ####[address] [address] Lab Director: Jimenez Pruett MD Creatinine [Mass/Vol] 1.6 mg/dL High 0.70-1.20 [facility] Comment on above: Performed By: #### R ENP, UAX, CBC, URI, URTPRT, UMICAO, MG ####[address] [place] [address] lab Director: Eder Herrera MD#### PTHNCA ####[address] [place], [place] 5836008 Lab Director: Jimenez Pruett MD GFR/1.73 sq M.predicted among non-blacks MDRD (S/P/Bld) [Vol rate/Area] 49 mL/min/{1.73_m2} Low >60 [facility] Comment on above: Result Comment: Thes e [...] ENP, UAX, CBC, URI, URTPRT, UMICAO, MG ####[address] [place] [phone] lab Director: Eder Herrera MD#### PTHNCA ####[place] [address]8 Lab Director: Jimenez Pruett MD Glucose [Mass/Vol] 183 mg/dL High 74-99 [facility] Comment on above: Performed By: #### R ENP, UAX, CBC, URI, URTPRT, UMICAO, MG ####[address] [place] [phone] lab Director: Eder Herrera MD#### PTHNCA ####[address] [phone] Lab Director: Jimenez Pruett MD Phosphorus, Inorg. 3.2 mg/dL Normal 2.5-4.5 [facility] Comment on above: Performed By: #### R ENP, UAX, CBC, URI, URTPRT, UMICAO, MG ####[address] [place] [address] Lab Director: Eder Herrera MD#### PTHNCA ####[address] [place] [address] Lab Director: Jimenez Pruett MD Potassium [Moles/Vol] 4.7 mmol/L Normal 3.7-5.3 [facility] Comment on above: Performed By: #### R ENP, UAX, CBC, URI, URTPRT, UMICAO, MG ####[address] [place], [place] 7183883 Lab Director: Eder Herrera MD#### PTHNCA ####[address] [phone] Director: Jimenez Pruett MD Sodium [Moles/Vol] 137 mmol/L Normal 136-145 [facility] Comment on above: Performed By: #### R ENP, UAX, CBC, URI, URTPRT, UMICAO, MG ####[address] , [place] 1200[address] Lab Director: Eder Herrera MD#### PTHNCA ####[address] [address] Lab Director: Jimenez Pruett MD Urea nitrogen [Mass/Vol] 30 mg/dL High 8-23 [facility] Comment on above: Performed By: #### R ENP, UAX, CBC, URI, URTPRT, UMICAO, MG ####[address] [place], [place] 2635083 Lab Director: Eder Herrera MD#### PTHNCA ####[address] [place] [address] Lab Director: Jimenez Pruett MD UA w/Reflex Cultureon 2024 Bilirubin, SemiQt,Ur Negative Normal NEG [facility] Comment on above: Performed By: #### R ENP, UAX, CBC, URI, URTPRT, UMICAO, MG ####[facility] [place], [place] [phone] Lab Director: Eder Herrera MD#### PTHNCA ####[address] [phone] Lab Director: Jimenez Pruett MD Blood, Urine Negative Normal NEG [facility] Comment on above: Performed By: #### R ENP, UAX, CBC, URI, URTPRT, UMICAO, MG ####[address] [place], [place] 3992783 lab Director: Eder Herrera MD#### PTHNCA ####[address] [id number] Lab Director: Jimenez Pruett MD Clarity (U) Clear Normal CLEAR [facility] Comment on above: Performed By: #### R ENP, UAX, CBC, URI, URTPRT, UMICAO, MG ####[address] [place], [place] 1639483 Lab Director: Eder Herrera MD#### PTHNCA ####[address] [address] Lab Director: Jimenez Pruett MD Color (U) Yellow Normal YEL [facility] Comment on above: Performed By: #### R ENP, UAX, CBC, URI, URTPRT, UMICAO, MG ####[address] [place], [place] 5536983 lab Director: Eder Herrera MD#### PTHNCA ####[address] [phone] Lab Director: Jimenez Pruett MD Glucose Ql (U) 3+ mg/dL Abnormal NEG [facility] Comment on above: Performed By: #### R ENP, UAX, CBC, URI, URTPRT, UMICAO, MG ####[address] [place], [place] [phone] Lab Director: Eder Herrera MD#### PTHNCA ####[address] [phone] Lab Director: Jimenez Pruett MD Ketones Ql (U) Negative Normal NEG [facility] Comment on above: Performed By: #### R ENP, UAX, CBC, URI, URTPRT, UMICAO, MG ####[address] [place], [place] 4799183 Lab Director: Eder Herrera MD#### PTHNCA ####[address] [phone] Lab Director: Jimenez Pruett MD Leukocyte esterase Test strip Ql (U) Negative Normal NEG [facility] Comment on above: Performed By: #### R ENP, UAX, CBC, URI, URTPRT, UMICAO, MG ####[address] [place], [place] 1711283 Lab Director: Eder Herrera MD#### PTHNCA ####[address] [address] Lab Director: Jimenez Pruett MD Nitrite,Ur Negative Normal NEG [facility] Comment on above: Performed By: #### R ENP, UAX, CBC, URI, URTPRT, UMICAO, MG ####[address] [place], [place] 1567583 Lab Director: Eder Herrera MD#### PTHNCA ####[address] [address] Lab Director: Jimenez Pruett MD PH,Ur 6.0 Normal 5.0-9.0 [facility] Comment on above: Performed By: #### R ENP, UAX, CBC, URI, URTPRT, UMICAO, MG ####[address] [place], [place] 078[address]83 Lab Director: Eder Herrera MD#### PTHNCA ####[address] [address] Lab Director: Jimenez Pruett MD Protein Ql (U) Negative Normal NEG [facility] Comment on above: Performed By: #### R ENP, UAX, CBC, URI, URTPRT, UMICAO, MG ####[address] [place] [address] [facility] Director: Eder Herrera MD#### PTHNCA ####[place] [address] Lab Director: Jimenez Pruett MD Spec. Purdy,Ur <1.005 Low 1.010-1.020 [facility] Comment on above: Performed By: #### R ENP, UAX, CBC, URI, URTPRT, UMICAO, MG ####[address] [place] [address] Lab Director: Eder Herrera MD#### PTHNCA ####[address] [address] Lab Director: Jimenez Pruett MD Urobilinogen,Ur Normal Normal 0.0-1.0 [facility] Comment on above: Performed By: #### R ENP, UAX, CBC, URI, URTPRT, UMICAO, MG ####[address] [place] [phone] lab Director: Eder Herrera MD#### PTHNCA ####[facility] [id number] [place] [address] lab Director: Jimenez Pruett MD Uric Acidon 11-01-2024 Urate [Mass/Vol] 4.8 mg/dL 3.4 - 7.0 mg/dL [facility] Urate [Mass/Vol] 4.8 mg/dL Normal 3.4-7.0 [facility] Comment on above: Performed By: #### R ENP, UAX, CBC, URI, URTPRT, UMICAO, MG ####[facility] [place] [address] lab Director: Eder Herrera MD#### PTHNCA ####[facility] [id number] [place] [address] lab Director: Jimenez Pruett MD Urinalysis with Reflex to Cu ltureon 11-01-2024 Bilirubin Ql (U) Negative NEGATIVE [facility] Clarity (U) Clear Clear [facility] Color (U) Yellow Yellow [facility] Glucose Test strip (U) [Mass/Vol] 3+ Abnormal NEGATIVE mg/dL [facility] Hemoglobin Auto test strip Ql (U) Negative NEGATIVE [facility] Interpretation and review of laboratory results Abnormal [facility] Ketones (U) [Mass/Vol] Negative NEGAT PAO mg/dL [facility] Leukocyte esterase Test strip Ql (U) Negative NEGATIVE [facility] Nitrite Ql (U) Negative NEGATIVE [place] [facility] pH (U) 6 [pH] 5.0 - 9.0 [facility] Protein (U) [Mass/Vol] Negative NEGAT PAO mg/dL [facility] Specific gravity (U) [Rel density] Low 1.010 - 1.020 [facility] Urobilinogen Qn (U) Normal 0.0 - 1. 0 EU/dL [facility] Urinalysis,Microon 5 Epithelial cells LM Ql (Urine sed) 10 TO 20 Normal 0-5 [facility] Comment on above: Performed By: #### R ENP, UAX, CBC, URI, URTPRT, UMICAO, MG ####[facility] [place], [place] [id number] Lab Director: Eder Herrera MD#### PTHNCA ####[address] [id number] Lab Director: Jimenez Pruett MD Urine RBC's 0 TO 2 Normal 0-2 [facility] Comment on above: Performed By: #### R ENP, UAX, CBC, URI, URTPRT, UMICAO, MG ####[facility] [place] [address] lab Director: Eder Herrera MD#### PTHNCA ####[address] [id number] Lab Director: Jimenez Pruett MD Urine WBC's 2 TO 5 Normal 0-5 [facility] Comment on above: Performed By: #### R ENP, UAX, CBC, URI, URTPRT, UMICAO, MG ####[address] [place] [address] Lab Director: Eder Herrera MD#### PTHNCA ####[address] [id number] Lab Director: Jimenez Pruett MD MRI FOOT RIGHT WO CONTRASTon 10-23-2024 MRI FOOT RIGHT WO CONTRAST Normal [facility] Basic Metabolic Panelon 09-23 Anion gap [Moles/Vol] 9 mmol/L 9 - 16 mmol/L [facility] Calcium [Mass/Vol] 10.6 mg/dL High 8.6 - 10. 4 mg/dL [facility] Chloride [Moles/Vol] 104 mmol/L 98 - 10 7 mmol/L [facility] CO2 [Moles/Vol] 25 mmol/L 20 - 31 mmol/L [facility] Creatinine [Mass/Vol] 1.8 mg/dL High 0.70 - 1.20 mg/dL [facility] Yuliet Lancastert Rate 41 Low - PINF [facility] Comment on above: These results are not [...] [Mass/Vol] 90 mg/dL 74 - 99 mg/dL [facility] Potassium [Moles/Vol] 5.5 mmol/L High 3.7 - 5.3 mmol/L [facility] Sodium [Moles/Vol] 138 mmol/L 136 - 145 mmol/L [facility] Urea nitrogen [Mass/Vol] 33 mg/dL High 8 - 23 mg/dL [facility] Urea nitrogen/Creatinine [Mass ratio] 18 mg/mg - 20 [facility] Basic Metabolic Profon 10-20 Anion gap [Moles/Vol] 9 mmol/L Normal 9-16 [facility] Comment on above: Performed By: #### B REPAIRER RECREATIONAL VEHICLE, BMP ####[facility] [place] [address] Lab Director: Eder Herrera MD BUN/CRE Ratio 18 Normal -20 [facility] Comment on above: Performed By: #### B REPAIRER RECREATIONAL VEHICLE, BMP ####[facility] [place] [address] Lab Director: Eder Herrera MD Calcium [Mass/Vol] 10.6 mg/dL High 8.6-10.4 [facility] Comment on above: Performed By: #### B REPAIRER RECREATIONAL VEHICLE, BMP ####[facility] , [place] [id number] Lab Director: Eder Herrera MD Chloride [Moles/Vol] 104 mmol/L Normal 98-107 [facility] Comment on above: Performed By: #### B REPAIRER RECREATIONAL VEHICLE, BMP ####[facility] , [place] [id number] Lab Director: Eder Herrera MD CO2 [Moles/Vol] 25 mmol/L Normal 20-31 [facility] Comment on above: Performed By: #### B REPAIRER RECREATIONAL VEHICLE, BMP ####[facility] [place] [address] Lab Director: Eder Herrera MD Creatinine [Mass/Vol] 1.8 mg/dL High 0.70-1.20 [facility] Comment on above: Performed By: #### B REPAIRER RECREATIONAL VEHICLE, BMP ####[address] , [place] [id number] Lab Director: Eder Herrera MD GFR/1.73 sq M.predicted among non-blacks MDRD (S/P/Bld) [Vol rate/Area] 41 mL/min/{1.73_m2} Low >60 [facility] Comment on above: Result Comment: Thes e [...] renal tubular secretion. Performed By: #### B REPAIRER RECREATIONAL VEHICLE, BMP ####[facility] , [place] 4686383 Lab Director: Eder Herrera MD Glucose [Mass/Vol] 90 mg/dL Normal 74-99 [facility] Comment on above: Performed By: #### B REPAIRER RECREATIONAL VEHICLE, BMP ####[facility] , [place] 8409083 Lab Director: Eder Herrera MD Potassium [Moles/Vol] 5.5 mmol/L High 3.7-5.3 [facility] Comment on above: Performed By: #### B REPAIRER RECREATIONAL VEHICLE, BMP ####[facility] [place] [address] Lab Director: Eder Herrera MD Sodium [Moles/Vol] 138 mmol/L Normal 136-145 [facility] Comment on above: Performed By: #### B REPAIRER RECREATIONAL VEHICLE, BMP ####[facility] [place] [address] Lab Director: Eder Herrera MD Urea nitrogen [Mass/Vol] 33 mg/dL High 8-23 [facility] Comment on above: Performed By: #### B REPAIRER RECREATIONAL VEHICLE, BMP ####[facility] [place] [address] Lab Director: Eder Herrera MD Brain Natri. Peptideon 10-20 Natriuretic peptide B (Bld) [Mass/Vol] 269 pg/mL High 0-125 [facility] Comment on above: Performed By: #### B REPAIRER RECREATIONAL VEHICLE, BMP ####[address] , [place] [id number] Lab Director: Eder Herrera MD Brain Natriuretic Peptideon 10-20-2024 Natriuretic peptide B (Bld) [Mass/Vol] 269 pg/mL High 0 - 125 pg/mL [facility] No Panel Informationon 10-20 Interpretation and review of laboratory results Abnormal [facility] Hemoglobin A1Con 10-04-2024 Average glucose Estimated from glycated hemoglobin (Bld) [Mass/Vol] 169 mg/dL [facility] Comment on above: The ADA and AACC rec ommend providing the estimated average glucose result to permit better patient understanding of their HBA1c result. HbA1c (Bld) [Mass fraction] 7.5 % High 4.0 - 6.0 % [facility] Interpretation and review of laboratory results Abnormal [facility] Glucose [Mass/Vol] 169 mg/dL Normal [facility] Comment on above: Result Comment: The ADA and AACC recommend providing the estimated average glucose result to permit better patient understanding of their HBA1c result. Performed By: #### G LYHGB ####[address] [place], [place] [id number] lab Director: Jimenez Pruett MD HbA1c (Bld) [Mass fraction] 7.5 % High 4.0-6.0 [facility] Comment on above: Performed By: #### G LYHGB ####[facility] [address] [place], [place] [id number] lab Director: Jimenez Pruett MD PSA Screeningon 10-04-2024 Prostate specific Ag [Mass/Vol] 0.51 ng/mL 0.00 - 4.00 ng/mL [facility] Comment on above: The Cyndi ECLIA as say is used. Results obtained with different assay methods cannot be used interchangeably. [facility] PSA, Screeningon 10-04-2024 Prostatic Spec. Ag 0.51 ng/mL Normal 0.00-4.00 [facility] Comment on above: Result Comment: The Cyndi ECLIA assay is used. Results obtained with different assay methods cannot be used interchangeably. Performed By: #### P SAS ####[facility] Center[facility] [address] [place], [place] [id number] lab Director: Jimenez Pruett MD CBCon 09-20-2024 Erythrocyte distribution width (RBC) [Ratio] 13.4 % 11.8 - 14.4 % [facility] Hematocrit (Bld) [Volume fraction] 35.8 % Low 40.7 - 50.3 % [facility] Hemoglobin (Bld) [Mass/Vol] 11.7 g/dL Low 13.0 - 17.0 g/dL [facility] Interpretation and review of laboratory results Abnormal [facility] MCH (RBC) [Entitic mass] 30.5 pg 25.2 - 33.5 pg [facility] MCHC (RBC) [Mass/Vol] 32.7 g/dL 28.4 - 34.8 g/dL [facility] MCV (RBC) [Entitic vol] 93.5 fL 82.6 - 102.9 fL [facility] Nucleated RBC/100 WBC (Bld) [Ratio] 0 % 0.0 per 100 WBC [facility] Platelet mean volume (Bld) [Entitic vol] 11 fL 8.1 - 13.5 fL [facility] Platelets (Bld) [#/Vol] 292 10*3/uL [facility] RBC (Bld) [#/Vol] 3.83 10*6/uL Low 4.21 - 5.7 7 m/uL [facility] WBC other (Bld) [#/Vol] 7.9 B [facility] Erythrocyte distribution width (RBC) [Ratio] 13.4 % Normal 11.8-14.4 [facility] Comment on above: Performed By: #### P THNCA ####[place] [address] Lab Director: Jimenez Pruett MD#### VALARIE, MG, URI, CBC ####[address] [place] [id number] Lab Director: Eder Herrera MD Hematocrit (Bld) [Volume fraction] 35.8 % Low 40.7-50.3 [facility] Comment on above: Performed By: #### P THNCA ####[facility] [id number] [place] [address] Lab Director: Jimenez Pruett MD#### RENP, MG, URI, CBC ####[address] [place] [address] Lab Director: Eder Herrera MD Hemoglobin (Bld) [Mass/Vol] 11.7 g/dL Low 13.0-17.0 [facility] Comment on above: Performed By: #### P THNCA ####[address] [address] Lab Director: Jimenez Pruett MD#### RENP, MG, URI, CBC ####[address] [place] [id number] lab Director: Eder Herrera MD MCH (RBC) [Entitic mass] 30.5 pg Normal 25.2-33.5 [facility] Comment on above: Performed By: #### P THNCA ####[address] [address] Lab Director: Jimenez Pruett MD#### RENP, MG, URI, CBC ####[address] [place] [address] lab Director: Eder Herrera MD MCHC (RBC) [Mass/Vol] 32.7 g/dL Normal 28.4-34.8 [facility] Comment on above: Performed By: #### P THNCA ####[address] [address] Lab Director: Jimenez Pruett MD#### RENP, MG, URI, CBC ####[address] [place] [address] Lab Director: Eder Herrera MD MCV (RBC) [Entitic vol] 93.5 fL Normal 82.6-102.9 M [facility] Comment on above: Performed By: #### P THNCA ####[address] [address] Lab Director: Jimenez Pruett MD#### RENP, MG, URI, CBC ####[address] [place] [id number] Lab Director: Eder Herrera MD NRBC Automated 0.0 per 100 WBC Normal 0.0 [facility] Comment on above: Performed By: #### P THNCA ####[place] [address] [place] [address] Lab Director: Jimenez Pruett MD#### RENP, MG, URI, CBC ####[address] [place] [address] Lab Director: Eder Herrera MD Platelet mean volume (Bld) [Entitic vol] 11.0 fL Normal 8.1-13.5 [facility] Comment on above: Performed By: #### P THNCA ####[address] [address] Lab Director: Jimenez Pruett MD#### RENP, MG, URI, CBC ####[address] [place] [address] Lab Director: Eder Herrera MD Platelets (Bld) [#/Vol] 292 10*3/uL Normal 138-453 [facility] Comment on above: Performed By: #### P THNCA ####[address] [address] Lab Director: Jimenez Pruett MD#### RENP, MG, URI, CBC ####[address] [place] [address] Lab Director: Eder Herrera MD RBC (Bld) [#/Vol] 3.83 10*6/uL Low 4.21-5.77 [facility] Comment on above: Performed By: #### P THNCA ####[address] [address] Lab Director: Jimenez Pruett MD#### RENP, MG, URI, CBC ####[address] [place] [address] Lab Director: Eder Herrera MD WBC (Bld) [#/Vol] 7.9 10*3/uL Normal 3.5-11.3 [facility] Comment on above: Performed By: #### P THNCA ####[facility] [id number] [place] [address] Lab Director: Jimenez Pruett MD#### RENP, MG, URI, CBC ####[facility] [place] [address] Lab Director: Eder Herrera MD Magnesiumon 09-20-2024 Magnesium [Mass/Vol] 2.2 mg/dL 1.6 - 2 .4 mg/dL [facility] Magnesium [Mass/Vol] 2.2 mg/dL Normal 1.6-2.4 [facility] Comment on above: Performed By: #### P THNCA ####[address] [place] [address] Lab Director: Jimenez Pruett MD#### RENP, MG, URI, CBC ####[facility] [place] [address] Lab Director: Eder Herrera MD Microscopic Urinalysison Epithelial cells LM.HPF (Urine sed) [#/Area] None [facility] RBC LM.HPF (Urine sed) [#/Area] None [facility] WBC LM.HPF (Urine sed) [#/Area] None [facility] No Panel Informationon 09-20 [facility] PTH, Intacton 09-20-2024 Interpretation and review of laboratory results Abnormal [facility] Parathyrin.intact [Mass/Vol] 120.0 pg/mL High 17.9 - 58.6 pg/mL [facility] PTH, Intact 120.0 pg/mL High 17.9-58.6 [facility] Comment on above: Performed By: #### P THNCA ####[facility] [id number] [place] [address] Lab Director: Jimenez Pruett MD#### RENP, MG, URI, CBC ####[address] [place], [place] 375[address]83 Lab Director: Eder Herrera MD Protein / creatinine ratio, urineon 09-20-2024 Creatinine (U) [Mass/Vol] 43.5 mg/dL 39.0 - 259.0 mg/dL [facility] Protein (U) [Mass/Vol] 7 mg/dL [facility] Comment on above: No normal range esta blished. Urine Total Protein Creatinine Ratio 0.16 0.00 - 0.20 [facility] Protein,Tot,Maxie Uron 2024 Creatinine [Mass/Vol] 43.5 mg/dL Normal 39.0-259.0 [facility] Comment on above: Performed By: #### BOLIVAR DAVIS URTPRT ####[address] , [facility] Lab Director: Eder Herrera MD Tot Prot. Conc. 7 mg/dL Normal [facility] Comment on above: Result Comment: No n ormal range established. Performed By: #### BOLIVAR DAVIS URTPRT ####[address] [place], [place] [address]83 Lab Director: Eder Herrera MD TP/Cre Ratio 0.16 Normal 0.00-0.20 [facility] Comment on above: Performed By: #### U AXBOLIVAR URTPRT ####[address] , [place] [id number] Lab Director: Eder Herrera MD Renal Function Panelon 09-20 Albumin [Mass/Vol] 4 g/dL 3.5 - 5.2 g/dL [facility] Anion gap [Moles/Vol] 12 mmol/L 9 - 16 mmol/L [facility] Calcium [Mass/Vol] 11 mg/dL High 8.6 - 10. 4 mg/dL [facility] Chloride [Moles/Vol] 99 mmol/L 98 - 10 7 mmol/L [facility] CO2 [Moles/Vol] 24 mmol/L 20 - 31 mmol/L [facility] Creatinine [Mass/Vol] 2.1 mg/dL High 0.70 - 1.20 mg/dL [facility] Est, Glom Filt Rate 34 Low - PINF [facility] S [facility] Comment on above: These results are not [...] 169 mg/dL High 74 - 99 mg/dL [facility] Interpretation and review of laboratory results Abnormal [facility] Phosphate [Mass/Vol] 2.5 mg/dL 2.5 - 4 .5 mg/dL [facility] Potassium [Moles/Vol] 4.5 mmol/L 3.7 - 5.3 mmol/L [facility] Sodium [Moles/Vol] 135 mmol/L Low 136 - 145 mmol/L [facility] Urea nitrogen [Mass/Vol] 45 mg/dL High 8 - 23 mg/dL [facility] Urea nitrogen/Creatinine [Mass ratio] 21 mg/mg High 9 - 20 [facility] Albumin [Mass/Vol] 4.0 g/dL Normal 3.5-5.2 [facility] Comment on above: Performed By: #### P THNCA ####[facility] [id number] [place] [address] Lab Director: Jimenez Pruett MD#### RENP, MG, URI, CBC ####[facility] [place] [address] Lab Director: Eder Herrera MD Anion gap [Moles/Vol] 12 mmol/L Normal 9-16 [facility] Comment on above: Performed By: #### P THNCA ####[facility] [place] [address] Lab Director: Jimenez Pruett MD#### RENP, MG, URI, CBC ####[address] [place], [place] [address] Lab Director: Eder Herrera MD BUN/CRE Ratio 21 High 9-20 [facility] Comment on above: Performed By: #### P THNCA ####[address] [address] Lab Director: Jimenez Pruett MD#### RENP, MG, URI, CBC ####[address] [place], [place] 8[address] Lab Director: Eder Herrera MD Calcium [Mass/Vol] 11.0 mg/dL High 8.6-10.4 [facility] Comment on above: Performed By: #### P THNCA ####[address] [address] Lab Director: Jimenez Pruett MD#### RENP, MG, URI, CBC ####[address] [place] 09[address]83 Lab Director: Eder Herrera MD Chloride [Moles/Vol] 99 mmol/L Normal 98-107 [facility] Comment on above: Performed By: #### P THNCA ####[address] [address] Lab Director: Jimenez Pruett MD#### RENP, MG, URI, CBC ####[address] [place] [address] Lab Director: Eder Herrera MD CO2 [Moles/Vol] 24 mmol/L Normal 20-31 [facility] Comment on above: Performed By: #### P THNCA ####[facility] [place] [address] Lab Director: Jimenez Pruett MD#### RENP, MG, URI, CBC ####[address] [place], [place] [address]783 Lab Director: Eder Herrera MD Creatinine [Mass/Vol] 2.1 mg/dL High 0.70-1.20 [facility] Comment on above: Performed By: #### P THNCA ####[address] [address] Lab Director: Jimenez Pruett MD#### RENP, MG, URI, CBC ####[address] [place], [place] [address] Lab Director: Eder Herrera MD GFR/1.73 sq M.predicted among non-blacks MDRD (S/P/Bld) [Vol rate/Area] 34 mL/min/{1.73_m2} Low >60 [facility] Comment on above: Result Comment: Thes e [...] tubular secretion. Performed By: #### P THNCA ####[facility] [id number] [place] [address] Lab Director: Jimenez Pruett MD#### RENP, MG, URI, CBC ####[address] [place], [place] [address] Lab Director: Eder Herrera MD Glucose [Mass/Vol] 169 mg/dL High 74-99 [facility] Comment on above: Performed By: #### P THNCA ####[address] [place] [address] Lab Director: Jimenez Pruett MD#### RENP, MG, URI, CBC ####[address] [place] [address] Lab Director: Eder Herrera MD Phosphorus, Inorg. 2.5 mg/dL Normal 2.5-4.5 [facility] Comment on above: Performed By: #### P THNCA ####[address] [address] Lab Director: Jimenez Pruett MD#### RENP, MG, URI, CBC ####[address] [place] [address] Lab Director: Eder Herrera MD Potassium [Moles/Vol] 4.5 mmol/L Normal 3.7-5.3 [facility] Comment on above: Performed By: #### P THNCA ####[address] [address] Lab Director: Jimenez Pruett MD#### RENSpring, MG, URI, CBC ####[address] [place], [place] [address] Lab Director: Eder Herrera MD Sodium [Moles/Vol] 135 mmol/L Low 136-145 [facility] Comment on above: Performed By: #### P THNCA ####[address] [address] Lab Director: Jimenez Pruett MD#### RENP, MG, URI, CBC ####[address] [place], [place] 2329[address] Lab Director: Eder Herrera MD Urea nitrogen [Mass/Vol] 45 mg/dL High 8-23 [facility] Comment on above: Performed By: #### P THNCA ####[address] [place], [place] [address] Lab Director: Jimenez Pruett MD#### RENP, MG, URI, CBC ####[address] , [place] 4418[address] Lab Director: Eder Herrera MD UA w/Reflex Cultureon 2024 Bilirubin, SemiQt,Ur Negative Normal NEG [facility] Comment on above: Performed By: #### U AX, UMICAO, URTPRT ####[address] [place] [address] Lab Director: Eder Herrera MD Blood, Urine Negative Normal NEG [facility] Comment on above: Performed By: #### U AX, UMICAO, URTPRT ####[address] [place] [address] Lab Director: Eder Herrera MD Clarity (U) Clear Normal CLEAR [facility] Comment on above: Performed By: #### U AX, UMICAO, URTPRT ####[address] , [place] 34[address] Lab Director: Eder Herrera MD Color (U) Yellow Normal YEL [facility] Comment on above: Performed By: #### U AX, UMICAO, URTPRT ####[address] [place] [address] Lab Director: Eder Herrera MD Glucose Ql (U) 3+ mg/dL Abnormal NEG [facility] Comment on above: Performed By: #### U AX, UMICAO, URTPRT ####[address] , [place] 24[address]83 Lab Director: Eder Herrera MD Ketones Ql (U) Negative Normal NEG [facility] Comment on above: Performed By: #### U AX, UMICAO, URTPRT ####[address] [place] [address] Lab Director: Eder Herrera MD Leukocyte esterase Test strip Ql (U) Negative Normal NEG [facility] Comment on above: Performed By: #### U AX, UMICAO, URTPRT ####[address] [place] [address] [facility] Director: Eder Herrera MD Nitrite,Ur Negative Normal NEG [facility] Comment on above: Performed By: #### U AX, UMICAO, URTPRT ####[address] [place] [address] lab Director: Eder Herrera MD PH,Ur 6.0 Normal 5.0-9.0 [facility] Comment on above: Performed By: #### U AX, UMICAO, URTPRT ####[address] [place] [address] lab Director: Eder Herrera MD Protein Ql (U) Negative Normal NEG [facility] Comment on above: Performed By: #### U AX, UMICAO, URTPRT ####[address] [place] [address] lab Director: Eder Herrera MD Spec. Purdy,Ur 1.010 Normal 1.010-1.020 [facility] Comment on above: Performed By: #### U AX, UMICAO, URTPRT ####[address] [place] [address] lab Director: Eder Herrera MD Urobilinogen,Ur Normal Normal 0.0-1.0 [facility] Comment on above: Performed By: #### U AX, UMICAO, URTPRT ####[address] [place] [address] lab Director: Eder Herrera MD Uric Acidon 09-20-2024 Urate [Mass/Vol] 5.3 mg/dL 3.4 - 7.0 mg/dL [facility] Urate [Mass/Vol] 5.3 mg/dL Normal 3.4-7.0 [facility] Comment on above: Performed By: #### P THNCA ####[facility] [id number] [place], [place] [id number] lab Director: Jimenez Pruett MD#### RENP, MG, URI, CBC ####[facility] [place] [address] lab Director: Eder Herrera MD Urinalysis with Reflex to Cu ltureon 09-20-2024 Bilirubin Ql (U) Negative NEGATIVE [facility] Clarity (U) Clear Clear [facility] Color (U) Yellow Yellow [facility] Glucose Test strip (U) [Mass/Vol] 3+ Abnormal NEGATIVE mg/dL [facility] Hemoglobin Auto test strip Ql (U) Negative NEGATIVE [facility] Interpretation and review of laboratory results Abnormal [facility] Ketones (U) [Mass/Vol] Negative NEGAT PAO mg/dL [facility] Leukocyte esterase Test strip Ql (U) Negative NEGATIVE [facility] Nitrite Ql (U) Negative NEGATIVE [facility] pH (U) 6 [pH] 5.0 - 9.0 [facility] Protein (U) [Mass/Vol] Negative NEGAT PAO mg/dL [facility] Specific gravity (U) [Rel density] 1.01 1.010 - 1.020 [facility] Urobilinogen Qn (U) Normal 0.0 - 1. 0 EU/dL [facility] Urinalysis,Microon 5 Epithelial cells LM Ql (Urine sed) None Normal 0-5 [facility] Comment on above: Performed By: #### U AX, UMICAO, URTPRT ####[facility] [place] [address] lab Director: Eder Herrera MD Urine RBC's None Normal 0-2 [facility] Comment on above: Performed By: #### U AX, UMICAO, URTPRT ####[facility] [place] [address] lab Director: Eder Herrera MD Urine WBC's None Normal 0-5 [facility] Comment on above: Performed By: #### U AX, UMICAO, URTPRT ####[facility] [place] [address] lab Director: Eder Herrera MD XR TOE RIGHT (MIN 2 VIEWS)on 09-09-2024 XR TOE RIGHT (MIN 2 VIEWS) Normal [facility] Magnesiumon 08-23-2024 Magnesium [Mass/Vol] 2.2 mg/dL 1.6 - 2 .4 mg/dL [facility] Magnesium [Mass/Vol] 2.2 mg/dL Normal 1.6-2.4 [facility] Comment on above: Performed By: #### M G, RENP ####[address] [place] [address] lab Director: Eder Herrera MD No Panel Informationon 08-23 [facility] Renal Function Panelon 08-23 Albumin [Mass/Vol] 4.2 g/dL 3.5 - 5.2 g/dL [facility] Anion gap [Moles/Vol] 10 mmol/L 9 - 16 mmol/L [facility] Calcium [Mass/Vol] 10.5 mg/dL High 8.6 - 10. 4 mg/dL [facility] Chloride [Moles/Vol] 103 mmol/L 98 - 10 7 mmol/L [facility] CO2 [Moles/Vol] 24 mmol/L 20 - 31 mmol/L [facility] Creatinine [Mass/Vol] 1.6 mg/dL High 0.70 - 1.20 mg/dL [facility] Est, Glom Filt Rate 48 Low - PINF [facility] Comment on above: These results are not [...] 147 mg/dL High 74 - 99 mg/dL [facility] Interpretation and review of laboratory results Abnormal [facility] Phosphate [Mass/Vol] 2.4 mg/dL Low 2.5 - 4 .5 mg/dL [facility] Potassium [Moles/Vol] 4.9 mmol/L 3.7 - 5.3 mmol/L [facility] Sodium [Moles/Vol] 137 mmol/L 136 - 145 mmol/L [facility] Urea nitrogen [Mass/Vol] 29 mg/dL High 8 - 23 mg/dL [facility] Urea nitrogen/Creatinine [Mass ratio] 18 mg/mg 9 - 20 [facility] Albumin [Mass/Vol] 4.2 g/dL Normal 3.5-5.2 [facility] Comment on above: Performed By: #### M G, RENP ####[address] [place] [address] lab Director: Eder Herrera MD Anion gap [Moles/Vol] 10 mmol/L Normal 9-16 [facility] Comment on above: Performed By: #### M G, RENP ####[facility] [place] [address] lab Director: Eder Herrera MD BUN/CRE Ratio 18 Normal 9-20 [facility] Comment on above: Performed By: #### M G, RENP ####[facility] [place] [address] lab Director: Eder Herrera MD Calcium [Mass/Vol] 10.5 mg/dL High 8.6-10.4 [facility] Comment on above: Performed By: #### M Yifan, RENP ####[facility] [place] , [place] [id number] Lab Director: Eder Herrera MD Chloride [Moles/Vol] 103 mmol/L Normal 98-107 [facility] Comment on above: Performed By: #### M G, RENP ####[facility] [place] [address] Lab Director: Eder Herrera MD CO2 [Moles/Vol] 24 mmol/L Normal 20-31 [facility] Comment on above: Performed By: #### M Yifan, RENP ####[address] [place] [address] Lab Director: Eder Herrera MD Creatinine [Mass/Vol] 1.6 mg/dL High 0.70-1.20 [facility] Comment on above: Performed By: #### Bettina Saha, RENP ####[address] [place] [address] Lab Director: Eder Herrera MD GFR/1.73 sq M.predicted among non-blacks MDRD (S/P/Bld) [Vol rate/Area] 48 mL/min/{1.73_m2} Low >60 [facility] Comment on above: Result Comment: Thes e [...] secretion. Performed By: #### M Yifan, RENP ####[address] [place] [address] lab Director: Eder Herrera MD Glucose [Mass/Vol] 147 mg/dL High 74-99 [facility] Comment on above: Performed By: #### Bettina Saha, RENP ####[address] , [place] [id number] Lab Director: Eder Herrera MD Phosphorus, Inorg. 2.4 mg/dL Low 2.5-4.5 [facility] Comment on above: Performed By: #### Bettina Saha, RENP ####[address] , [place] [id number] Lab Director: Eder Herrera MD Potassium [Moles/Vol] 4.9 mmol/L Normal 3.7-5.3 [facility] Comment on above: Performed By: #### Bettina Saha, RENP ####[address] , [place] [id number] Lab Director: Eder Herrera MD Sodium [Moles/Vol] 137 mmol/L Normal 136-145 [facility] Comment on above: Performed By: #### Bettina Saha, RENP ####[address] , [place] [id number] Lab Director: Eder Herrera MD Urea nitrogen [Mass/Vol] 29 mg/dL High 8-23 [facility] Comment on above: Performed By: #### Bettina Saha, RENP ####[address] , [place] [id number] Lab Director: Eder Herrera MD XR TOE RIGHT (MIN 2 VIEWS)on 08-20-2024 XR TOE RIGHT (MIN 2 VIEWS) Normal [facility] Cult,Woundon 08-19-2024 Cult,Wound Susceptible [facility] Comment on above: Performed By: #### W DC ####[address] [id number] Lab Director: Jimenez Pruett [address] , [place] [id number] lab Director: Eder Herrera MD Basophils Auto (Bld) [#/Vol] on 08-02-2024 Basophils (Bld) [#/Vol] Automated basoph il count 0.0-0.1 [facility] Basophils/100 WBC Auto (Bld) on 08-02-2024 Basophils/100 WBC (Bld) Automated basophil % 0. 2-2.0 [facility] Eosinophils/100 WBC Auto (Bl d)on 08-02-2024 Eosinophils/100 WBC (Bld) Automated eosinophil % 0.9-7.0 [facility] Erythrocyte distribution wid th Auto (RBC) [Ratio]on 08-02-2024 Erythrocyte distribution width (RBC) [Ratio] Erythrocyte distribution width [Ratio] by Automated count 11.0-15.0 [facility] Estimated glomerular filtrat ion rate (GFR) non- Americanon 08-02-2024 GFR/1.73 sq M.predicted among non-blacks MDRD (S/P/Bld) [Vol rate/Area] Estimated glomerular filtration rate (GFR) non- Low >=60 mL/min/1.73 m 2 [facility] Hematocrit Auto (Bld) [Volum e fraction]on 08-02-2024 Hematocrit (Bld) [Volume fraction] Hematocrit [Volume Fraction] of Blood by Automated count Low 42.0-54.0 [facility] Hemoglobin [Mass/volume] in Bloodon 08-02-2024 Hemoglobin (Bld) [Mass/Vol] Hemoglobin [Mass/volume] in Blood Low 14.0-18.0 [facility] Laboratory - Chemistry and C hemistry - challengeon 08-02-2024 Calcium [Mass/Vol] 8.4 mg/dL Low 8.5-10.1 [facility] Chloride [Moles/Vol] 99 mmol/L 98-107 [facility] CO2 [Moles/Vol] 27.6 mmol/L 21.0-32.0 [facility] Creatinine [Mass/Vol] 2.35 mg/dL High 0.70-1.30 [facility] GFR/1.73 sq M.predicted MDRD (S/P/Bld) [Vol rate/Area] 34 mL/min/{1.73_m2} Low >=60 mL/min/1.73 m 2 [facility] Glucose [Mass/Vol] 132 mg/dL High 74-106 [facility] Potassium [Moles/Vol] 3.7 mmol/L 3.5-5.1 [facility] Sodium [Moles/Vol] 135 mmol/L Low 136-145 [facility] Urea nitrogen [Mass/Vol] 68.0 mg/dL High 7.0-18.0 [facility] Urea nitrogen/Creatinine [Mass ratio] 28.9 mg/mg [facility] Laboratory - Hematology and Cell countson 08-02-2024 Immature granulocytes/100 WBC (Bld) 0.5 % 0.0-0.5 [facility] Leukocytes [#/volume] correc yaneth for nucleated erythrocytes in Blood by Automated counon 08-02-2024 WBC corrected for nucl RBC Auto (Bld) [#/Vol] Leukocytes [#/volume] corrected for nucleated erythrocytes in Blood by Automated coun 4.0-11.0 [facility] Lymphocytes Auto (Bld) [#/Vo l]on 08-02-2024 Lymphocytes (Bld) [#/Vol] Lymphocytes [#/volume] in Blood by Automated count 1.2-3.8 [facility] Lymphocytes/100 WBC Auto (Bl d)on 08-02-2024 Lymphocytes/100 WBC (Bld) Lymphocytes/100 leukocytes in Blood by Automated count 20.5-60.0 [facility] MCH Auto (RBC) [Entitic mass ]on 08-02-2024 MCH (RBC) [Entitic mass] MCH [Entitic mass] by Automated count 25.9-34.0 [facility] MCHC Auto (RBC) [Mass/Vol]on 08-02-2024 MCHC (RBC) [Mass/Vol] MCHC [Mass/volume] by Automated count 29.9-35.2 [facility] MCV Auto (RBC) [Entitic vol] on 08-02-2024 MCV (RBC) [Entitic vol] MCV [Entitic vol ume] by Automated count 80.0-94.0 [facility] Monocytes Auto (Bld) [#/Vol] on 08-02-2024 Monocytes (Bld) [#/Vol] Automated blood monocyte count High 0.3-0.8 [facility] Monocytes/100 WBC Auto (Bld) on 08-02-2024 Monocytes/100 WBC (Bld) Automated monocyte % High 1. 7-12.0 [facility] Neutrophils Auto (Bld) [#/Vo l]on 08-02-2024 Neutrophils (Bld) [#/Vol] Neutrophils [#/volume] in Blood by Automated count 1.4-6.5 [facility] Neutrophils/100 WBC Auto (Bl d)on 08-02-2024 Neutrophils/100 WBC (Bld) Automated neutrophil % 43.0-75.0 [facility] No Panel Informationon 08-02 Eosinophils # (Auto) 0.2 10 3/uL 0.0-0.7 [facility] Immature Granulocyte # (Auto) 0.03 10 3/uL 0.00-0.03 [facility] Platelet mean volume Auto (B ld) [Entitic vol]on 08-02-2024 Platelet mean volume (Bld) [Entitic vol] Platelet mean volume [Entitic volume] in Blood by Automated count 9.5-13.5 [facility] Platelets Auto (Bld) [#/Vol] on 08-02-2024 Platelets (Bld) [#/Vol] Platelets [#/vol ume] in Blood by Automated count 150-450 [facility] RBC Auto (Bld) [#/Vol]on RBC (Bld) [#/Vol] Erythrocytes [#/volume] in Blood by Automated count Low 4.70-6.10 [facility] Serum or plasma anion gap de terminationon 08-02-2024 Anion gap [Moles/Vol] Serum or plasma an ion gap determination [facility] Basophils Auto (Bld) [#/Vol] on 07-30-2024 Basophils (Bld) [#/Vol] Automated basoph il count 0.0-0.1 [facility] Basophils/100 WBC Auto (Bld) on 07-30-2024 Basophils/100 WBC (Bld) Automated basophil % 0. 2-2.0 [facility] Eosinophils/100 WBC Auto (Bl d)on 07-30-2024 Eosinophils/100 WBC (Bld) Automated eosinophil % 0.9-7.0 [facility] Erythrocyte distribution wid th Auto (RBC) [Ratio]on 07-30-2024 Erythrocyte distribution width (RBC) [Ratio] Erythrocyte distribution width [Ratio] by Automated count 11.0-15.0 [facility] Estimated glomerular filtrat ion rate (GFR) non- Americanon 07-30-2024 GFR/1.73 sq M.predicted among non-blacks MDRD (S/P/Bld) [Vol rate/Area] Estimated glomerular filtration rate (GFR) non- Low >=60 mL/min/1.73 m 2 [facility] Globulin Calc (S) [Mass/Vol] on 07-30-2024 Globulin (S) [Mass/Vol] Serum globulin measurement by calculation (mass/volume) [facility] Hematocrit Auto (Bld) [Volum e fraction]on 07-30-2024 Hematocrit (Bld) [Volume fraction] Hematocrit [Volume Fraction] of Blood by Automated count Low 42.0-54.0 [facility] Hemoglobin [Mass/volume] in Bloodon 07-30-2024 Hemoglobin (Bld) [Mass/Vol] Hemoglobin [Mass/volume] in Blood Low 14.0-18.0 [facility] Laboratory - Chemistry and C hemistry - challengeon 07-30-2024 Bilirubin Ql (U) Negative NEGATIVE [facility] Glucose (U) [Mass/Vol] 500 mg/dL Abnormal NEGATIVE [facility] Ketones Ql (U) Negative NEGATIVE [facility] pH (U) 5.5 [pH] 5.0-9.0 [facility] Specific gravity (U) [Rel density] <=1.005 Abnormal 1.005-1.025 [facility] Urobilinogen Qn (U) 0.2 {Fabiana'U}/dL 0.2-1.0 [facility] Albumin [Mass/Vol] 3.2 g/dL Low 3.4-5.0 [facility] ALP [Catalytic activity/Vol] 90 U/L 46-116 [facility] ALT [Catalytic activity/Vol] 27 U/L 16-63 [facility] AST [Catalytic activity/Vol] 22 U/L 15-37 [facility] Bilirubin [Mass/Vol] 0.4 mg/dL 0.2-1.0 [facility] Bilirubin.direct [Mass/Vol] 0.1 mg/dL 0.0-0.2 [facility] Calcium [Mass/Vol] 8.6 mg/dL 8.5-10.1 [facility] Chloride [Moles/Vol] 94 mmol/L Low 98-107 [facility] CO2 [Moles/Vol] 29.0 mmol/L 21.0-32.0 [facility] Creatinine [Mass/Vol] 3.35 mg/dL High 0.70-1.30 [facility] GFR/1.73 sq M.predicted MDRD (S/P/Bld) [Vol rate/Area] 23 mL/min/{1.73_m2} Low >=60 mL/min/1.73 m 2 [facility] Glucose [Mass/Vol] 222 mg/dL High 74-106 [facility] Lipase [Catalytic activity/Vol] 25.0 U/L 16.0-77.0 [facility] Potassium [Moles/Vol] 4.6 mmol/L 3.5-5.1 [facility] Protein [Mass/Vol] 7.5 g/dL 6.4-8.2 [facility] Sodium [Moles/Vol] 134 mmol/L Low 136-145 [facility] Urea nitrogen [Mass/Vol] 75.0 mg/dL High 7.0-18.0 [facility] Urea nitrogen/Creatinine [Mass ratio] 22.4 mg/mg [facility] Laboratory - Hematology and Cell countson 07-30-2024 Immature granulocytes/100 WBC (Bld) 0.5 % 0.0-0.5 [facility] Laboratory - Specimen inform ationon 07-30-2024 Appearance (U) CLEAR CLEAR [facility] Color (U) LT. YELLOW YELLOW [facility] Laboratory - Urinalysison Leukocyte esterase Test strip Ql (U) Negative NEGATIVE [facility] Nitrite Ql (U) Negative NEGATIVE [facility] Protein Ql (U) Negative NEG/TRACE [facility] Leukocytes [#/volume] correc yaneth for nucleated erythrocytes in Blood by Automated counon 07-30-2024 WBC corrected for nucl RBC Auto (Bld) [#/Vol] Leukocytes [#/volume] corrected for nucleated erythrocytes in Blood by Automated coun 4.0-11.0 [facility] Lymphocytes Auto (Bld) [#/Vo l]on 07-30-2024 Lymphocytes (Bld) [#/Vol] Lymphocytes [#/volume] in Blood by Automated count 1.2-3.8 [facility] Lymphocytes/100 WBC Auto (Bl d)on 07-30-2024 Lymphocytes/100 WBC (Bld) Lymphocytes/100 leukocytes in Blood by Automated count Low 20.5-60.0 [facility] MCH Auto (RBC) [Entitic mass ]on 07-30-2024 MCH (RBC) [Entitic mass] MCH [Entitic mass] by Automated count 25.9-34.0 [facility] MCHC Auto (RBC) [Mass/Vol]on 07-30-2024 MCHC (RBC) [Mass/Vol] MCHC [Mass/volume] by Automated count 29.9-35.2 [facility] MCV Auto (RBC) [Entitic vol] on 07-30-2024 MCV (RBC) [Entitic vol] MCV [Entitic vol ume] by Automated count 80.0-94.0 [facility] Monocytes Auto (Bld) [#/Vol] on 07-30-2024 Monocytes (Bld) [#/Vol] Automated blood monocyte count 0.3-0.8 [facility] Monocytes/100 WBC Auto (Bld) on 07-30-2024 Monocytes/100 WBC (Bld) Automated monocyte % 1. 7-12.0 [facility] Neutrophils Auto (Bld) [#/Vo l]on 07-30-2024 Neutrophils (Bld) [#/Vol] Neutrophils [#/volume] in Blood by Automated count 1.4-6.5 [facility] Neutrophils/100 WBC Auto (Bl d)on 07-30-2024 Neutrophils/100 WBC (Bld) Automated neutrophil % 43.0-75.0 [facility] No Panel Informationon 07-30 Urine Microscopic Review NO [facility] Urine Occult Blood Negative NEGATIVE [facility] Eosinophils # (Auto) 0.1 10 3/uL 0.0-0.7 [facility] Immature Granulocyte # (Auto) 0.04 10 3/uL High 0.00-0.03 [facility] Platelet mean volume Auto (B ld) [Entitic vol]on 07-30-2024 Platelet mean volume (Bld) [Entitic vol] Platelet mean volume [Entitic volume] in Blood by Automated count 9.5-13.5 [facility] Platelets Auto (Bld) [#/Vol] on 07-30-2024 Platelets (Bld) [#/Vol] Platelets [#/vol ume] in Blood by Automated count 150-450 [facility] RBC Auto (Bld) [#/Vol]on RBC (Bld) [#/Vol] Erythrocytes [#/volume] in Blood by Automated count Low 4.70-6.10 [facility] Serum or plasma albumin/glob ulin mass ratioon 07-30-2024 Albumin/Globulin [Mass ratio] Serum or plasma albumin/globulin mass ratio [facility] Serum or plasma anion gap de terminationon 07-30-2024 Anion gap [Moles/Vol] Serum or plasma an ion gap determination [facility] .eGFRon 07-29-2024 Estimated GFR 21 mL/min/1.73m? Low >=60 [facility] Comment on above: Result Comment: [facility] Laboratories have implemented the eGFR calculation [...] years Performed By: #### E GFR #### [address] [address] Basic Metabolic Profileon Anion gap [Moles/Vol] 11 mmol/L Normal 4-12 [facility] Comment on above: Performed By: #### C [id number] ####[address] [address] Calcium [Mass/Vol] 8.3 mg/dL Low 8.5-10.[address] [facility] Comment on above: Performed By: #### C [id number] ####[address] [address] Chloride [Moles/Vol] 94 mmol/L Low 98-110 [facility] Comment on above: Performed By: #### C [id number] ####[address] [address] CO2 [Moles/Vol] 28 mmol/L Normal 22-32 [facility] Comment on above: Performed By: #### C [id number] ####[address] [address] Creatinine [Mass/Vol] 3.21 mg/dL High 0.61-1.24 [facility] Comment on above: Performed By: #### C [id number] ####[address] [address] Glucose [Mass/Vol] 90 mg/dL Normal 70-[address] [facility] Comment on above: Performed By: #### C [id number] ####[address] [address] Potassium [Moles/Vol] 4.1 mmol/L Normal 3.4-4.8 [facility] Comment on above: Performed By: #### C [id number] ####[address] [address] Sodium [Moles/Vol] 133 mmol/L Normal 133-[address] [facility] Comment on above: Performed By: #### C [id number] ####[address] [address] Urea nitrogen [Mass/Vol] 72 mg/dL High 8-26 [facility] Comment on above: Performed By: #### C [id number] ####[address] [address] Urea nitrogen/Creatinine [Mass ratio] 22.4 mg/mg High 10.0-20.0 [facility] Comment on above: Performed By: #### C [id number] ####[address] [address] CBCon 07-29-2024 Erythrocyte distribution width (RBC) [Ratio] 13.7 % Normal 11.6-14.8 [facility] Comment on above: Performed By: #### . AMI Initial #### [address] [address] Hematocrit (Bld) [Volume fraction] 30.2 % Low 41.0-53.0 [facility] Comment on above: Performed By: #### . AMI Initial #### [address] [address] Hemoglobin (Bld) [Mass/Vol] 10.4 g/dL Low 13.5-17.5 [facility] Comment on above: Performed By: #### . AMI Initial #### [address] [address] MCH (RBC) [Entitic mass] 31.5 pg Normal 27.0-35.0 [facility] Comment on above: Performed By: #### . AMI Initial #### [address] [address] MCHC 34.5 % Normal 31.0-37.0 [facility] Comment on above: Performed By: #### . AMI Initial #### [address] [address] MCV (RBC) [Entitic vol] 91.4 fL Normal 80.0-100.0 [facility] Comment on above: Performed By: #### . AMI Initial #### [address] [address] Platelet 245 x10*3/mcL Normal 150-450 [facility] Comment on above: Performed By: #### . AMI Initial #### [address] [address] Platelet mean volume (Bld) [Entitic vol] 9.0 fL Normal 6.7-10.6 [facility] Comment on above: Performed By: #### . AMI Initial #### [address] [address] RBC 3.31 x10*6/mcL Low 4.30-5.80 [facility] Comment on above: Performed By: #### . AMI Initial #### [address] [address] WBC 8.1 x10*3/mcL Normal 4.5-11.0 [facility] Comment on above: Performed By: #### . AMI Initial #### [address] [address] Inpatient Clinical Summary 07-29-2024 Inpatient Clinical Summary [address] [address] [phone] [address] [phone] Clinical Summary Person Information Name: Piotr Kerr Age: 63 Years : 1960 Sex: Male PCP: Jorge Pritchett DO Marital Status: Phone: PCP: Race: White Ethnicity: Not or Language: Albanian Visit Id: Visit Reason: Renal Failure Speciality: Acuity: Enc Type: Inpatient Med Service: Medicine-General Arrival: 07/23/2024 09:47:21 Discharge: Dispo Type: Address: [address] [place] [id number] Preferred Communication Mode: Preferred Language: Albanian Discharge Diagnosis: 1:NEO (acute kidney injury); 2:HTN [...] Shoe/Cast Shoe 07/27/24 13:25:00 EST, 3 months, [id number], PT RECEIVED A SMALL SHOE, PLEASE DISPENSE [...] fully awake, 07/29/24 14:46:00 EST Insulin Safety [place] 07/23/24 11:04:00 EST, PRN, 1 each insulin [...] range between ( 27.2 and 40.8 ) [place] Auto: 11.8 % -- Norm (more content not included)... Normal [facility] Magnesiumon 07-29-2024 Magnesium [Mass/Vol] 2.0 mg/dL Normal 1.7-2.4 [facility] Comment on above: Performed By: #### . AMI 6 Hr #### [facility] [address] [place] [address] Nephrology Progress Noteon 0 07-29-2024 Nephrology Progress [...] Lymph Auto 20.4 % Low 07/23/24 10:51:00 [place] Auto 11.8 % 07/23/24 10:51:00 Eos Auto 0.9 % 07/23/24 10:51:00 Basophil Auto 0.7 % 07/23/24 10:51:00 Neutro Absolute 5 x10 07/23/24 10:51:00 Lymph Absolute 1.5 x10 07/23/24 10:51:00 [place] Absolute 0.9 x10 07/23/24 10:51:00 Eos Absolute [...] up in 1-2 weeks at our outpatient [place] [facility] 2. HTN (hypertension) Chronic baseline history [...] continue on DC Electronically signed by [employer] PYTHON ENGINEER-HYDRAULIC PRESS OPERATOR, Lluvia Alvarez 07/30/24 14:17 EST As the attending, patient's case was reviewed and discussed with Vaishali (more content not included)... Normal [facility] Neurology Progress Noteon Neurology Progress Note [...] PRN heparin, 5000 units= 1 mL, Subcutaneous, [id number] [employer] hydrocodone-acetamino phen 5 mg-325 mg oral [...] mg= 1 mL, IV Push, q2min, PRN [place] 10 mg-325 mg oral tablet, 1 tabs, [...] Werner Sunshine MD 07/29/24 14:10 EST Normal [facility] POC Glucose Randomon 025 Glucose [Mass/Vol] 83 mg/dL Normal 70-[address] [facility] Comment on above: Performed By: #### M G #### [place] [id number] Glucose [Mass/Vol] 104 mg/dL High 70-[address] [facility] Comment on above: Performed By: #### . AMI Initial #### [address] [address] Phosphoruson 07-29-2024 Phosphate [Mass/Vol] 5.0 mg/dL High 2.5-4.6 [facility] Comment on above: Performed By: #### R ENAL #### [address] [address] .eGFRon 07-28-2024 Estimated GFR 32 mL/min/1.73m? Low >=60 [facility] Comment on above: Result Comment: [facility] Laboratories have implemented the eGFR calculation [...] = years Performed By: #### E GFR ####[address] [address] CBCon 07-28-2024 Erythrocyte distribution width (RBC) [Ratio] 13.7 % Normal 11.6-14.8 [facility] Comment on above: Performed By: #### . AMI 6 Hr #### [place] [id number] Hematocrit (Bld) [Volume fraction] 31.0 % Low 41.0-53.0 [facility] Comment on above: Performed By: #### . AMI 6 Hr #### [place] [id number] Hemoglobin (Bld) [Mass/Vol] 10.5 g/dL Low 13.5-17.5 [facility] Comment on above: Performed By: #### . AMI 6 Hr #### [place] [id number] MCH (RBC) [Entitic mass] 30.9 pg Normal 27.0-35.0 [facility] Comment on above: Performed By: #### . AMI 6 Hr #### [place] [id number] MCHC 33.8 % Normal 31.0-37.0 [facility] Comment on above: Performed By: #### . AMI 6 Hr #### [place] [id number] MCV (RBC) [Entitic vol] 91.4 fL Normal 80.0-100.0 [facility] Comment on above: Performed By: #### . AMI 6 Hr #### [place] [id number] Platelet 245 x10*3/mcL Normal 150-450 [facility] Comment on above: Performed By: #### . AMI 6 Hr #### [facility] [address] [place] [address] Platelet mean volume (Bld) [Entitic vol] 9.0 fL Normal 6.7-10.6 [facility] Comment on above: Performed By: #### . AMI 6 Hr #### [facility] [address] [place] [address] RBC 3.39 x10*6/mcL Low 4.30-5.80 [facility] Comment on above: Performed By: #### . AMI 6 Hr #### [place] [address] [place] [address] WBC 8.2 x10*3/mcL Normal 4.5-11.0 [facility] Comment on above: Performed By: #### . AMI 6 Hr #### [place] [address] [place] [address] CT Brain w/o Contraston 03-0 CT Brain [...] loss. Stable appearance of likely remote small career portals teacher infarct involving the right huang. No mass lesion or mass effect. No hydrocephalus. IMPRESSION: No acute large vascular territory infarct or acute intracranial hemorrhage. If there is clinical concern for acute ischemia recommend MRI brain for further evaluation. Radiation Dose Estimate: CTDI(mGy):0.001717 / / / kVp:120.650999 / mAs:0.127072 / / / DLP(mGy-cm):5.676893O garrison Part: Head CTDI(mGy):46.311847 / / / kVp:120.496146 / mAs:186.727607 / / / DLP(mGy-cm):789.73264 3Body Part: Head Final Dictated by: Zee Guillen DO Dictated DT/TM: 07.28.2024 7:57 am Signed by: Zee Guillen DO Signed (Electronic Signature): 07.28.2024 7:58 am (If Report Is Signed, Electronically Signed in Other Vendor System) Normal [facility] Magnesiumon 07-28-2024 Magnesium [Mass/Vol] 1.8 mg/dL Normal 1.7-2.4 [facility] Comment on above: Performed By: #### M G #### [place] [id number] Nephrology Progress Noteon 0 07-28-2024 Nephrology Progress [...] Lymph Auto 20.4 % Low 07/23/24 10:51:00 [place] Auto 11.8 % 07/23/24 10:51:00 Eos Auto 0.9 % 07/23/24 10:51:00 Basophil Auto 0.7 % 07/23/24 10:51:00 Neutro Absolute 5 x10 07/23/24 10:51:00 Lymph Absolute 1.5 x10 07/23/24 10:51:00 [place] Absolute 0.9 x10 07/23/24 10:51:00 Eos Absolute [...] PRN heparin, 5000 units= 1 mL, Subcutaneous, [id number]-[id number] Times hydrocodone-acetamino phen 5 mg-325 mg oral [...] mg= 1 mL, IV Push, q2min, PRN [place] 10 mg-325 mg oral tablet, 1 tabs, [...] -OK t (more content not included)... Normal [facility] Neurology Progress Noteon Neurology Progress Note [...] PRN heparin, 5000 units= 1 mL, Subcutaneous, m4hu-Oifdrqor Times hydrocodone-acetamino phen 5 mg-325 mg oral [...] mg= 1 mL, IV Push, q2min, PRN [place] 10 mg-325 mg oral tablet, 1 tabs, [...] Werner Sunshine MD 07/28/24 19:04 EST Normal [facility] POC Glucose Randomon 025 Glucose [Mass/Vol] 173 mg/dL High 70-[address] [facility] Comment on above: Performed By: #### C [id number] ####[address] [address] Glucose [Mass/Vol] 113 mg/dL High 70-[address] [facility] Comment on above: Performed By: #### R ENAL #### [address] [address] Glucose [Mass/Vol] 128 mg/dL High 70-[address] [facility] Comment on above: Performed By: #### C [id number] #### [address] [address] Glucose [Mass/Vol] 133 mg/dL High 70-[address] [facility] Comment on above: Performed By: #### . AMI Initial #### [address] [address] Renal Panelon 07-28-2024 Albumin [Mass/Vol] 3.3 g/dL Normal 3.2-4.[address] [facility] Comment on above: Performed By: #### R ENAL #### [address] [address] Anion gap [Moles/Vol] 10 mmol/L Normal 4-12 [facility] Comment on above: Performed By: #### R ENAL #### [facility] [address] [place] [address] [place] [address] Calcium [Mass/Vol] 8.1 mg/dL Low 8.5-10.[address] [facility] Comment on above: Performed By: #### R ENAL #### [address] [address] Chloride [Moles/Vol] 97 mmol/L Low 98-110 [facility] Comment on above: Performed By: #### R ENAL #### [address] [address] CO2 [Moles/Vol] 26 mmol/L Normal 22-32 [facility] Comment on above: Performed By: #### R ENAL #### [address] [address] Creatinine [Mass/Vol] 2.26 mg/dL High 0.61-1.24 [facility] Comment on above: Performed By: #### R ENAL #### [address] [address] Glucose [Mass/Vol] 125 mg/dL High 70-[address] [facility] Comment on above: Performed By: #### R ENAL #### [address] [address] Phosphate [Mass/Vol] 4.3 mg/dL Normal 2.5-4.6 [facility] Comment on above: Performed By: #### R ENAL #### [address] [address] Potassium [Moles/Vol] 4.0 mmol/L Normal 3.4-4.8 [facility] Comment on above: Performed By: #### R ENAL #### [address] [address] Sodium [Moles/Vol] 133 mmol/L Normal 133-[address] [facility] Comment on above: Performed By: #### R ENAL #### [address] [address] Urea nitrogen [Mass/Vol] 62 mg/dL High 8-26 [facility] Comment on above: Performed By: #### R ENAL #### [address] [address] Urea nitrogen/Creatinine [Mass ratio] 27.4 mg/mg High 10.0-20.0 [facility] Comment on above: Performed By: #### R ENAL #### [address] [address] .AMI 2 Hron 07-27-2024 2 Hour Myoglobin 98.6 ng/mL Normal 17.4-105.7 [facility] Comment on above: Performed By: #### . AMI 2 Hour ####[address] [address] 2 Hour Troponin <0.03 Normal 0.00-0.03 [facility] Comment on above: Result Comment: An i ncreased Troponin-I value, in the absence of myocardial ischemia, may indicate other etiologies of cardiac damage. 99th Percentile Cutoff for Negative/Positive: Negative <= 0.03 Positive >= 0.04 Performed By: #### . AMI 2 Hour ####[address] [address] .AMI 6 Hron 07-27-2024 6 Hour Myoglobin 87.9 ng/mL Normal 17.4-105.7 [facility] Comment on above: Performed By: #### . AMI 6 Hr #### [address] [address] 6 Hour Troponin <0.03 Normal 0.00-0.03 [facility] Comment on above: Result Comment: An i ncreased Troponin-I value, in the absence of myocardial ischemia, may indicate other etiologies of cardiac damage. 99th Percentile Cutoff for Negative/Positive: Negative <= 0.03 Positive >= 0.04 Performed By: #### . AMI 6 Hr #### [place] [address] [place] [address] .AMI Initon 07-27-2024 Initial Myoglobin 97.8 ng/mL Normal 17.4-105.7 [facility] Comment on above: Performed By: #### . AMI Initial #### [address] [address] Initial Troponin <0.03 Normal 0.00-0.03 [facility] Comment on above: Result Comment: An i ncreased Troponin-I value, in the absence of myocardial ischemia, may indicate other etiologies of cardiac damage. 99th Percentile Cutoff for Negative/Positive: Negative <= 0.03 Positive >= 0.04 Performed By: #### . AMI Initial #### [address] [address] .eGFRon 07-27-2024 Estimated GFR 28 mL/min/1.73m? Low >=60 [facility] Comment on above: Result Comment: [facility] have implemented the eGFR calculation [...] years Performed By: #### R ENAL #### [address] [address] CBCon 07-27-2024 Erythrocyte distribution width (RBC) [Ratio] 13.5 % Normal 11.6-14.8 [facility] Comment on above: Performed By: #### R ENAL #### [address] [address] Hematocrit (Bld) [Volume fraction] 31.0 % Low 41.0-53.0 [facility] Comment on above: Performed By: #### R ENAL #### [address] [address] Hemoglobin (Bld) [Mass/Vol] 10.7 g/dL Low 13.5-17.5 [facility] Comment on above: Performed By: #### R ENAL #### [address] [address] MCH (RBC) [Entitic mass] 31.4 pg Normal 27.0-35.0 [facility] Comment on above: Performed By: #### R ENAL #### [address] [address] MCHC 34.7 % Normal 31.0-37.0 [facility] Comment on above: Performed By: #### R ENAL #### [address] [address] MCV (RBC) [Entitic vol] 90.6 fL Normal 80.0-100.0 [facility] Comment on above: Performed By: #### R ENAL #### [address] [address] Platelet 244 x10*3/mcL Normal 150-450 [facility] Comment on above: Performed By: #### R ENAL #### [address] [address] Platelet mean volume (Bld) [Entitic vol] 9.6 fL Normal 6.7-10.6 [facility] Comment on above: Performed By: #### R ENAL #### [address] [address] RBC 3.42 x10*6/mcL Low 4.30-5.80 [facility] Comment on above: Performed By: #### R ENAL #### [facility] [address] [place] [address] WBC 9.1 x10*3/mcL Normal 4.5-11.0 [facility] Comment on above: Performed By: #### R ENAL #### [facility] [address] [place] [address] Magnesiumon 07-27-2024 Magnesium [Mass/Vol] 2.0 mg/dL Normal 1.7-2.4 [facility] Comment on above: Performed By: #### M G #### [address] [address] Nephrology Progress Noteon 0 07-27-2024 Nephrology Progress [...] Lymph Auto 20.4 % Low 07/23/24 10:51:00 [place] Auto 11.8 % 07/23/24 10:51:00 Eos Auto 0.9 % 07/23/24 10:51:00 Basophil Auto 0.7 % 07/23/24 10:51:00 Neutro Absolute 5 x10 07/23/24 10:51:00 Lymph Absolute 1.5 x10 07/23/24 10:51:00 [place] Absolute 0.9 x10 07/23/24 10:51:00 Eos Absolute [...] PRN heparin, 5000 units= 1 mL, Subcutaneous, [id number]-[id number] Times hydrocodone-acetamino phen 5 mg-325 mg oral [...] Jardiance 10mg (more content not included)... Normal [facility] POC Glucose Randomon 025 Glucose [Mass/Vol] 158 mg/dL High 70-[address] [facility] Comment on above: Performed By: #### C [id number] #### [address] [address] Glucose [Mass/Vol] 161 mg/dL High 70-[address] [facility] Comment on above: Performed By: #### . AMI Initial #### [address] [address] Glucose [Mass/Vol] 198 mg/dL High 70-[address] [facility] Comment on above: Performed By: #### C [id number] #### [address] [address] Glucose [Mass/Vol] 124 mg/dL High 70-[address] [facility] Comment on above: Performed By: #### C [id number] #### [address] [address] Renal Panelon 07-27-2024 Albumin [Mass/Vol] 3.6 g/dL Normal 3.2-4.[address] [facility] Comment on above: Performed By: #### R ENAL #### [address] [address] Anion gap [Moles/Vol] 14 mmol/L High 4-12 [facility] Comment on above: Performed By: #### R ENAL #### [address] [address] Calcium [Mass/Vol] 8.3 mg/dL Low 8.5-10.[address] [facility] Comment on above: Performed By: #### R ENAL #### [address] [address] Chloride [Moles/Vol] 98 mmol/L Normal 98-110 [facility] Comment on above: Performed By: #### R ENAL #### [address] [address] CO2 [Moles/Vol] 25 mmol/L Normal 22-32 [facility] Comment on above: Performed By: #### R ENAL #### [address] [address] Creatinine [Mass/Vol] 2.49 mg/dL High 0.61-1.24 [facility] Comment on above: Performed By: #### R ENAL #### [address] [address] Glucose [Mass/Vol] 114 mg/dL High 70-[address] [facility] Comment on above: Performed By: #### R ENAL #### [address] [address] Phosphate [Mass/Vol] 4.5 mg/dL Normal 2.5-4.6 [facility] Comment on above: Performed By: #### R ENAL #### [address] [place] [address] Potassium [Moles/Vol] 3.7 mmol/L Normal 3.4-4.8 [facility] Comment on above: Performed By: #### R ENAL #### [address] [place] [address] Sodium [Moles/Vol] 137 mmol/L Normal 133-[address] [facility] Comment on above: Performed By: #### R ENAL #### [address] [address] Urea nitrogen [Mass/Vol] 65 mg/dL High 8-26 [facility] Comment on above: Performed By: #### R ENAL #### [address] [address] Urea nitrogen/Creatinine [Mass ratio] 26.1 mg/mg High 10.0-20.0 [facility] Comment on above: Performed By: #### R ENAL #### [address] [address] .eGFRon 07-26-2024 Estimated GFR 28 mL/min/1.73m? Low >=60 [facility] Comment on above: Result Comment: [facility] have implemented the eGFR calculation [...] Performed By: #### . AMI Initial #### [address] [address] CBCon 07-26-2024 Erythrocyte distribution width (RBC) [Ratio] 13.5 % Normal 11.6-14.8 [facility] Comment on above: Performed By: #### . AMI 6 Hr #### [address] [address] Hematocrit (Bld) [Volume fraction] 32.5 % Low 41.0-53.0 [facility] Comment on above: Performed By: #### . AMI 6 Hr #### [place] [id number] Hemoglobin (Bld) [Mass/Vol] 11.0 g/dL Low 13.5-17.5 [facility] Comment on above: Performed By: #### . AMI 6 Hr #### [place] [id number] MCH (RBC) [Entitic mass] 30.7 pg Normal 27.0-35.0 [facility] Comment on above: Performed By: #### . AMI 6 Hr #### [place] [id number] MCHC 33.9 % Normal 31.0-37.0 [facility] Comment on above: Performed By: #### . AMI 6 Hr #### [place] [id number] MCV (RBC) [Entitic vol] 90.5 fL Normal 80.0-100.0 [facility] Comment on above: Performed By: #### . AMI 6 Hr #### [place] [id number] Platelet 269 x10*3/mcL Normal 150-450 [facility] Comment on above: Performed By: #### . AMI 6 Hr #### [place] [id number] Platelet mean volume (Bld) [Entitic vol] 9.7 fL Normal 6.7-10.6 [facility] Comment on above: Performed By: #### . AMI 6 Hr #### [place] [id number] RBC 3.59 x10*6/mcL Low 4.30-5.80 [facility] Comment on above: Performed By: #### . AMI 6 Hr #### [place] [id number] WBC 8.2 x10*3/mcL Normal 4.5-11.0 [facility] Comment on above: Performed By: #### . AMI 6 Hr #### [address] [address] Magnesiumon 07-26-2024 Magnesium [Mass/Vol] 2.0 mg/dL Normal 1.7-2.4 [facility] Comment on above: Performed By: #### M G #### [address] [address] Nephrology Progress Noteon 0 07-26-2024 Nephrology Progress [...] Lymph Auto 20.4 % Low 07/23/24 10:51:00 [place] Auto 11.8 % 07/23/24 10:51:00 Eos Auto 0.9 % 07/23/24 10:51:00 Basophil Auto 0.7 % 07/23/24 10:51:00 Neutro Absolute 5 x10 07/23/24 10:51:00 Lymph Absolute 1.5 x10 07/23/24 10:51:00 [place] Absolute 0.9 x10 07/23/24 10:51:00 Eos Absolute [...] PRN heparin, 5000 units= 1 mL, Subcutaneous, [id number]-Hoqbefhw Times hydrocodone-acetamino phen 5 mg-325 mg oral [...] to resume Losartan at 50mg dosage from [facility] (more content not included)... Normal [facility] POC Glucose Randomon 025 Glucose [Mass/Vol] 249 mg/dL High 70-[address] [facility] Comment on above: Performed By: #### C [id number] #### [facility] [address] [place] [address] Glucose [Mass/Vol] 230 mg/dL High 70-[address] [facility] Comment on above: Performed By: #### C [id number] ####[facility] [place] [address] Glucose [Mass/Vol] 320 mg/dL High 70-[address] [facility] Comment on above: Performed By: #### E GFR #### [facility] [address] [place] [address] Glucose [Mass/Vol] 215 mg/dL High 70-[address] [facility] Comment on above: Performed By: #### C [id number] #### [address] [address] Progress Note-Nurseon 2024 Progress Note-Nurse Wound care reassessment completed. Right hallux was debrided at bedside by nursing aide yesterday. Orders in place to start Silvadene [...] by Mei Villaseñor 07/26/24 09:14 EST Normal [facility] Renal Panelon 07-26-2024 Albumin [Mass/Vol] 3.6 g/dL Normal 3.2-4.[address] [facility] Comment on above: Performed By: #### R ENAL ####[address] [address] Anion gap [Moles/Vol] 14 mmol/L High 4-12 [facility] Comment on above: Performed By: #### R ENAL ####[address] [address] Calcium [Mass/Vol] 8.3 mg/dL Low 8.5-10.[address] [facility] Comment on above: Performed By: #### R ENAL ####[address] [address] Chloride [Moles/Vol] 95 mmol/L Low 98-110 [facility] Comment on above: Performed By: #### R ENAL ####[address] [address] CO2 [Moles/Vol] 25 mmol/L Normal 22-32 [facility] Comment on above: Performed By: #### R ENAL ####[address] [address] Creatinine [Mass/Vol] 2.47 mg/dL High 0.61-1.24 [facility] Comment on above: Performed By: #### R ENAL ####[address] [address] Glucose [Mass/Vol] 210 mg/dL High 70-[address] [facility] Comment on above: Performed By: #### R ENAL ####[address] [address] Phosphate [Mass/Vol] 4.3 mg/dL Normal 2.5-4.6 [facility] Comment on above: Performed By: #### R ENAL ####[address] [address] Potassium [Moles/Vol] 3.9 mmol/L Normal 3.4-4.8 [facility] Comment on above: Performed By: #### R ENAL ####[address] [address] Sodium [Moles/Vol] 134 mmol/L Normal 133-[address] [facility] Comment on above: Performed By: #### R ENAL ####[address] [address] Urea nitrogen [Mass/Vol] 60 mg/dL High 8-26 [facility] Comment on above: Performed By: #### R ENAL ####[address] [address] Urea nitrogen/Creatinine [Mass ratio] 24.3 mg/mg High 10.0-20.0 [facility] Comment on above: Performed By: #### R ENAL ####[address] [address] .eGFRon 07-25-2024 Estimated GFR 29 mL/min/1.73m? Low >=60 [facility] Comment on above: Order Comment: Order added by Discern rule Result Comment: [facility] have implemented the eGFR calculation [...] = years Performed By: #### E GFR ####[address] [address] CBCon 07-25-2024 Erythrocyte distribution width (RBC) [Ratio] 13.6 % Normal 11.6-14.8 [facility] Comment on above: Performed By: #### . AMI 6 Hr #### [address] [address] Hematocrit (Bld) [Volume fraction] 31.0 % Low 41.0-53.0 [facility] Comment on above: Performed By: #### . AMI 6 Hr #### [address] [address] Hemoglobin (Bld) [Mass/Vol] 10.7 g/dL Low 13.5-17.5 [facility] Comment on above: Performed By: #### . AMI 6 Hr #### [address] [address] MCH (RBC) [Entitic mass] 31.4 pg Normal 27.0-35.0 [facility] Comment on above: Performed By: #### . AMI 6 Hr #### [address] [address] MCHC 34.6 % Normal 31.0-37.0 [facility] Comment on above: Performed By: #### . AMI 6 Hr #### [address] [address] MCV (RBC) [Entitic vol] 90.9 fL Normal 80.0-100.0 [facility] Comment on above: Performed By: #### . AMI 6 Hr #### [address] [address] Platelet 252 x10*3/mcL Normal 150-450 [facility] Comment on above: Performed By: #### . AMI 6 Hr #### [address] [address] Platelet mean volume (Bld) [Entitic vol] 9.6 fL Normal 6.7-10.6 [facility] Comment on above: Performed By: #### . AMI 6 Hr #### [address] [address] RBC 3.41 x10*6/mcL Low 4.30-5.80 [facility] Comment on above: Performed By: #### . AMI 6 Hr #### [address] [address] WBC 8.0 x10*3/mcL Normal 4.5-11.0 [facility] Comment on above: Performed By: #### . AMI 6 Hr #### [address] [address] Hgb A1con 07-25-2024 Glucose [Mass/Vol] 203 mg/dL High 68-[address] [facility] Comment on above: Result Comment: Math ematical Calc approx. The mean gluc equivalency of A1c Performed By: #### E GFR #### [address] [address] Hgb A1c 8.7 % A1c High 4.0-5.6 [facility] Comment on above: Result Comment: Refe rence Range: 4.0 - 5.6 % Normal 5.7 - 6.4 % Pre-Diabetes > 6.5 % Diabetes Performed By: #### E GFR #### [address] [address] Magnesiumon 07-25-2024 Magnesium [Mass/Vol] 1.7 mg/dL Normal 1.7-2.4 [facility] Comment on above: Performed By: #### M G #### [address] [place] [address] Nephrology Progress Noteon 0 07-25-2024 Nephrology Progress [...] Lymph Auto 20.4 % Low 07/23/24 10:51:00 [place] Auto 11.8 % 07/23/24 10:51:00 Eos Auto 0.9 % 07/23/24 10:51:00 Basophil Auto 0.7 % 07/23/24 10:51:00 Neutro Absolute 5 x10 07/23/24 10:51:00 Lymph Absolute 1.5 x10 07/23/24 10:51:00 [place] Absolute 0.9 x10 07/23/24 10:51:00 Eos Absolute [...] PRN heparin, 5000 units= 1 mL, Subcutaneous, a3ny-Cispjedi Times hydrocodone-acetamino phen 5 mg-325 mg oral [...] and spironolactone (more content not included)... Normal [facility] POC Glucose Randomon 07-25- 025 Glucose [Mass/Vol] 229 mg/dL High 70-[address] [facility] Comment on above: Performed By: #### C [id number] #### [address] [address] Glucose [Mass/Vol] 153 mg/dL High 70-[address] [facility] Comment on above: Performed By: #### . AMI 6 Hr #### [address] [address] Glucose [Mass/Vol] 118 mg/dL High 70-[address] [facility] Comment on above: Performed By: #### C [id number] #### [address] [address] Glucose [Mass/Vol] 152 mg/dL High 70-[address] [facility] Comment on above: Performed By: #### M G #### [address] [address] Glucose [Mass/Vol] 143 mg/dL High 70-[address] [facility] Comment on above: Performed By: #### M G #### [address] [address] Progress Note-Nurseon 2024 Progress Note-Nurse Wound care [...] by Bell Espinoza 07/25/24 12:41 EST Normal [facility] Renal Panelon 07-25-2024 Albumin [Mass/Vol] 3.6 g/dL Normal 3.2-4.[address] [facility] Comment on above: Performed By: #### R ENAL #### [address] [place] [address] Anion gap [Moles/Vol] 13 mmol/L High 4-12 [facility] Comment on above: Performed By: #### R ENAL #### [address] [place] [address] Calcium [Mass/Vol] 8.0 mg/dL Low 8.5-10.[address] [facility] Comment on above: Performed By: #### R ENAL #### [address] [place] [address] Chloride [Moles/Vol] 99 mmol/L Normal 98-110 [facility] Comment on above: Performed By: #### R ENAL #### [address] [place] [address] CO2 [Moles/Vol] 25 mmol/L Normal 22-32 [facility] Comment on above: Performed By: #### R ENAL #### [address] [place] [address] Creatinine [Mass/Vol] 2.42 mg/dL High 0.61-1.24 [facility] Comment on above: Performed By: #### R ENAL #### [address] [place] [address] Glucose [Mass/Vol] 162 mg/dL High 70-[address] [facility] Comment on above: Performed By: #### R ENAL #### [address] [place] [address] Phosphate [Mass/Vol] 4.1 mg/dL Normal 2.5-4.6 [facility] Comment on above: Performed By: #### R ENAL #### [address] [address] [place] [address] Potassium [Moles/Vol] 3.7 mmol/L Normal 3.4-4.8 [facility] Comment on above: Performed By: #### R ENAL #### [address] [address] Sodium [Moles/Vol] 137 mmol/L Normal 133-[address] [facility] Comment on above: Performed By: #### R ENAL #### [address] [address] Urea nitrogen [Mass/Vol] 73 mg/dL High 8-26 [facility] Comment on above: Performed By: #### R ENAL #### [address] [address] Urea nitrogen/Creatinine [Mass ratio] 30.2 mg/mg High 10.0-20.0 [facility] Comment on above: Performed By: #### R ENAL #### [address] [address] .eGFRon 07-24-2024 Estimated GFR 22 mL/min/1.73m? Low >=60 [facility] Comment on above: Order Comment: Order added by Discern rule Result Comment: [facility] Laboratories have implemented the eGFR calculation [...] years Performed By: #### E GFR #### [address] [address] CBCon 07-24-2024 Erythrocyte distribution width (RBC) [Ratio] 13.3 % Normal 11.6-14.8 [facility] Comment on above: Performed By: #### E GFR #### [place] [id number] Hematocrit (Bld) [Volume fraction] 32.1 % Low 41.0-53.0 [facility] Comment on above: Performed By: #### E GFR #### [place] [id number] Hemoglobin (Bld) [Mass/Vol] 10.7 g/dL Low 13.5-17.5 [facility] Comment on above: Performed By: #### E GFR #### [address] [address] MCH (RBC) [Entitic mass] 30.7 pg Normal 27.0-35.0 [facility] Comment on above: Performed By: #### E GFR #### [place] [id number] MCHC 33.5 % Normal 31.0-37.0 [facility] Comment on above: Performed By: #### E GFR #### [place] [id number] MCV (RBC) [Entitic vol] 91.9 fL Normal 80.0-100.0 [facility] Comment on above: Performed By: #### E GFR #### [address] [address] Platelet 251 x10*3/mcL Normal 150-450 [facility] Comment on above: Performed By: #### E GFR #### [place] [id number] Platelet mean volume (Bld) [Entitic vol] 9.7 fL Normal 6.7-10.6 [facility] Comment on above: Performed By: #### E GFR #### [address] [address] RBC 3.49 x10*6/mcL Low 4.30-5.80 [facility] Comment on above: Performed By: #### E GFR #### [address] [address] WBC 7.5 x10*3/mcL Normal 4.5-11.0 [facility] Comment on above: Performed By: #### E GFR #### [place] [id number] Ionized Calciumon 07-24-2024 Calcium Ionized 1.02 mmol/L Low 1.12-1.32 [facility] Comment on above: Performed By: #### . AMI 6 Hr #### [place] [address] Magnesiumon 07-24-2024 Magnesium [Mass/Vol] 2.2 mg/dL Normal 1.7-2.4 [facility] Comment on above: Performed By: #### M G #### [place] [id number] Nephrology Progress Noteon 0 07-24-2024 Nephrology Progress [...] Lymph Auto 20.4 % Low 07/23/24 10:51:00 [place] Auto 11.8 % 07/23/24 10:51:00 Eos Auto 0.9 % 07/23/24 10:51:00 Basophil Auto 0.7 % 07/23/24 10:51:00 Neutro Absolute 5 x10 07/23/24 10:51:00 Lymph Absolute 1.5 x10 07/23/24 10:51:00 [place] Absolute 0.9 x10 07/23/24 10:51:00 Eos Absolute [...] PRN heparin, 5000 units= 1 mL, Subcutaneous, [id number] Times hydrocodone-acetamino phen 5 mg-325 mg oral [...] level greater (more content not included)... Normal [facility] POC Glucose Randomon 025 Glucose [Mass/Vol] 255 mg/dL High 70-[address] [facility] Comment on above: Performed By: #### . AMI 6 Hr #### [address] [address] Glucose [Mass/Vol] 190 mg/dL High 70-[address] [facility] Comment on above: Performed By: #### E GFR #### [address] [address] Glucose [Mass/Vol] 276 mg/dL High 70-[address] [facility] Comment on above: Performed By: #### E GFR #### [address] [address] Phosphoruson 07-24-2024 Phosphate [Mass/Vol] 4.2 mg/dL Normal 2.5-4.6 [facility] Comment on above: Performed By: #### R ENAL #### [address] [address] Renal Panelon 07-24-2024 Albumin [Mass/Vol] 3.5 g/dL Normal 3.2-4.[address] [facility] Comment on above: Performed By: #### C [id number] #### [address] [address] Anion gap [Moles/Vol] 12 mmol/L Normal 4-12 [facility] Comment on above: Performed By: #### C [id number] #### [address] [address] Calcium [Mass/Vol] 7.5 mg/dL Low 8.5-10.[address] [facility] Comment on above: Performed By: #### C [id number] #### [address] [address] Chloride [Moles/Vol] 100 mmol/L Normal 98-110 [facility] Comment on above: Performed By: #### C [id number] #### [address] [address] CO2 [Moles/Vol] 23 mmol/L Normal 22-32 [facility] Comment on above: Performed By: #### C [id number] #### [address] [address] Creatinine [Mass/Vol] 3.04 mg/dL High 0.61-1.24 [facility] Comment on above: Performed By: #### C D:[id number] #### [address] [place] [address] Glucose [Mass/Vol] 135 mg/dL High 70-[address] [facility] Comment on above: Performed By: #### C [id number] #### [address] [address] Phosphate [Mass/Vol] 5.0 mg/dL High 2.5-4.6 [facility] Comment on above: Performed By: #### C D:[id number] #### [address] [address] Potassium [Moles/Vol] 4.4 mmol/L Normal 3.4-4.8 [facility] Comment on above: Result Comment: This test result could be falsely elevated due to interference from the hemolyzed condition of the specimen. Performed By: #### C D:[id number] #### [address] [address] Sodium [Moles/Vol] 135 mmol/L Normal 133-[address] [facility] Comment on above: Performed By: #### C D:[id number] #### [address] [address] Urea nitrogen [Mass/Vol] 95 mg/dL High 8-26 [facility] Comment on above: Performed By: #### C [id number] #### [address] [address] Urea nitrogen/Creatinine [Mass ratio] 31.2 mg/mg High 10.0-20.0 [facility] Comment on above: Performed By: #### C [id number] #### [address] [address] .UA Microscp Aon 07-23-2024 UA Mucus Present Normal Absent [facility] Comment on above: Performed By: #### E GFR #### [address] [address] UA RBC Quant 0 /HPF Normal 0-5 [facility] Comment on above: Performed By: #### E GFR #### [place] [address] [place] [address] UA Squepi Cells Quant <1 Normal 0-29 [facility] Comment on above: Performed By: #### E GFR #### [address] [address] UA WBC Quant 0 /HPF Normal 0-5 [facility] Comment on above: Performed By: #### E GFR #### [address] [address] .eGFRon 07-23-2024 Estimated GFR 15 mL/min/1.73m? Low >=60 [facility] Comment on above: Order Comment: Order added by Discern rule Result Comment: [facility] have implemented the eGFR calculation [...] years Performed By: #### E GFR #### [address] [address] BNPon 07-23-2024 Natriuretic peptide B (Bld) [Mass/Vol] 114 pg/mL High 0-100 [facility] Comment on above: Performed By: #### C [id number] #### [address] [address] CBC w/ Diffon 07-23-2024 Erythrocyte distribution width (RBC) [Ratio] 13.5 % Normal 11.6-14.8 [facility] Comment on above: Performed By: #### C BC ####[address] [address] Hematocrit (Bld) [Volume fraction] 32.0 % Low 41.0-53.0 [facility] Comment on above: Performed By: #### C BC ####[place] [id number] Hemoglobin (Bld) [Mass/Vol] 11.1 g/dL Low 13.5-17.5 [facility] Comment on above: Performed By: #### C BC ####[place] [id number] MCH (RBC) [Entitic mass] 31.4 pg Normal 27.0-35.0 [facility] Comment on above: Performed By: #### C BC ####[place] [id number] MCHC 34.7 % Normal 31.0-37.0 [facility] Comment on above: Performed By: #### C BC ####[place] [id number] MCV (RBC) [Entitic vol] 90.6 fL Normal 80.0-100.0 [facility] Comment on above: Performed By: #### C BC ####[place] [id number] Platelet 267 x10*3/mcL Normal 150-450 [facility] Comment on above: Performed By: #### C BC ####[place] [id number] Platelet mean volume (Bld) [Entitic vol] 9.1 fL Normal 6.7-10.6 [facility] Comment on above: Performed By: #### C BC ####[place] [id number] RBC 3.53 x10*6/mcL Low 4.30-5.80 [facility] Comment on above: Performed By: #### C BC ####[place] [address] [place] [address] WBC 7.5 x10*3/mcL Normal 4.5-11.0 [facility] Comment on above: Performed By: #### C BC ####[address] [address] CMPon 07-23-2024 Albumin [Mass/Vol] 4.0 g/dL Normal 3.2-4.[address] [facility] Comment on above: Performed By: #### R ENAL #### [address] [address] Albumin/Globulin [Mass ratio] 1.1 {ratio} Normal 1.1-2.2 [facility] Comment on above: Performed By: #### R ENAL #### [address] [address] Alk Phos 61 IU/L Normal 32-91 [facility] Comment on above: Performed By: #### R ENAL #### [address] [address] ALT [Catalytic activity/Vol] 15 U/L Low 17-63 [facility] Comment on above: Performed By: #### R ENAL #### [address] [address] Anion gap [Moles/Vol] 12 mmol/L Normal 4-12 [facility] Comment on above: Performed By: #### R ENAL #### [address] [address] AST [Catalytic activity/Vol] 15 U/L Normal 15-41 [facility] Comment on above: Performed By: #### R ENAL #### [address] [address] Bili Total 0.7 mg/dL Normal 0.3-1.2 [facility] Comment on above: Performed By: #### R ENAL #### [address] [place] [address] Calcium [Mass/Vol] 6.9 mg/dL Low 8.5-10.[address] [facility] Comment on above: Performed By: #### R ENAL #### [address] [address] Chloride [Moles/Vol] 98 mmol/L Normal 98-110 [facility] Comment on above: Performed By: #### R ENAL #### [address] [address] CO2 [Moles/Vol] 23 mmol/L Normal 22-32 [facility] Comment on above: Performed By: #### R ENAL #### [address] [address] Creatinine [Mass/Vol] 4.11 mg/dL High 0.61-1.24 [facility] Comment on above: Performed By: #### R ENAL #### [address] [address] Glucose [Mass/Vol] 199 mg/dL High 70-[address] [facility] Comment on above: Performed By: #### R ENAL #### [address] [address] Potassium [Moles/Vol] 4.0 mmol/L Normal 3.4-4.8 [facility] Comment on above: Performed By: #### R ENAL #### [address] [address] Protein [Mass/Vol] 7.5 g/dL Normal 6.5-8.[address] [facility] Comment on above: Performed By: #### R ENAL #### [address] [address] Sodium [Moles/Vol] 133 mmol/L Normal 133-[address] [facility] Comment on above: Performed By: #### R ENAL #### [address] [address] Urea nitrogen [Mass/Vol] 120 mg/dL High 8-26 [facility] Comment on above: Performed By: #### R ENAL #### [address] [address] Urea nitrogen/Creatinine [Mass ratio] 29.2 mg/mg High 10.0-20.0 [facility] Comment on above: Performed By: #### R ENAL #### [address] [address] Diff Autoon 07-23-2024 Baso Absolute 0.1 x10*3/mcL Normal 0.0-0.2 [facility] Comment on above: Performed By: #### C [id number] #### [address] [address] Basophils/100 WBC (Bld) 0.7 % Normal 0.0-1.2 [facility] Comment on above: Performed By: #### C [id number] #### [address] [address] Eos Absolute 0.1 x10*3/mcL Normal 0.0-0.4 [facility] Comment on above: Performed By: #### C [id number] #### [address] [address] Eosinophils/100 WBC (Bld) 0.9 % Normal 0.0-6.1 [facility] Comment on above: Performed By: #### C D:[id number] #### [address] [address] Lymph Absolute 1.5 x10*3/mcL Normal 1.0-4.8 [facility] Comment on above: Performed By: #### C D:[id number] #### [address] [address] Lymphocytes/100 WBC (Bld) 20.4 % Low 27.2-40.8 [facility] Comment on above: Performed By: #### C D:[id number] #### [address] [address] [place] Absolute 0.9 x10*3/mcL Normal 0.3-1.1 [facility] Comment on above: Performed By: #### C D:[id number] #### [address] [address] Monocytes/100 WBC (Bld) 11.8 % Normal 4.7-13.9 [facility] Comment on above: Performed By: #### C [id number] #### [address] [address] Neutro Absolute 5.0 x10*3/mcL Normal 1.8-7.[address] [facility] Comment on above: Performed By: #### C [id number] #### [address] [address] Neutro Auto 66.2 % Normal 47.2-70.8 [facility] Comment on above: Performed By: #### C [id number] #### [address] [address] Ionized Calciumon 07-23-2024 Calcium Ionized 0.95 mmol/L Low 1.12-1.32 [facility] Comment on above: Performed By: #### M G #### [address] [address] Lactic Acid, Randomon 2024 Lactic Acid Lvl 1.0 mmol/L Normal 0.5-2.0 [facility] Comment on above: Performed By: #### . AMI 6 Hr #### [address] [address] Magnesiumon 07-23-2024 Magnesium [Mass/Vol] 1.7 mg/dL Normal 1.7-2.4 [facility] Comment on above: Performed By: #### R ENAL #### [address] [address] POC Glucose Randomon 025 Glucose [Mass/Vol] 192 mg/dL High 70-[address] [facility] Comment on above: Performed By: #### M G #### [address] [address] Glucose [Mass/Vol] 176 mg/dL High 70-[address] [facility] Comment on above: Performed By: #### . AMI 6 Hr #### [address] [address] Glucose [Mass/Vol] 191 mg/dL High 70-[address] [facility] Comment on above: Performed By: #### C [id number] ####[address] [address] PTH-INTon 07-23-2024 PTH Intact 236 pg/mL High 12-88 [facility] Comment on above: Performed By: #### . AMI 6 Hr #### [address] [address] Phosphoruson 07-23-2024 Phosphate [Mass/Vol] 4.6 mg/dL Normal 2.5-4.6 [facility] Comment on above: Performed By: #### M G #### [address] [address] U Crea Randomon 07-23-2024 Creatinine [Mass/Vol] 54.1 mg/dL Normal [facility] Comment on above: Result Comment: The reference range has not been established for this test on a random urine sample. The test result should be interpreted based on clinical context. Performed By: #### E GFR #### [address] [address] U Eoon 07-23-2024 Eosinophil Smear Urine WBC QNS Normal None Bl [facility] Comment on above: Performed By: #### C D:[id number] #### [address] [address] UA Clarity Clear Normal Clear [facility] Comment on above: Performed By: #### C D:[id number] #### [address] [address] Ur WBC Qnt for Eos Cnt 0 /HPF Normal 0-5 Bl [facility] Comment on above: Performed By: #### C D:[id number] #### [address] [address] U Lyteson 07-23-2024 Chloride [Moles/Vol] 62 mmol/L Normal [facility] Comment on above: Performed By: #### E GFR #### [address] [address] Potassium [Moles/Vol] 19.1 mmol/L Normal [facility] Comment on above: Performed By: #### E GFR #### [address] [address] Sodium [Moles/Vol] 65 mmol/L Normal [facility] Comment on above: Performed By: #### E GFR #### [address] [address] U Na Randomon 07-23-2024 Sodium [Moles/Vol] 65 mmol/L Normal [facility] Comment on above: Performed By: #### C [id number] #### [address] [address] UA w Culture if Indon 2024 Color (U) Colorless Normal Yellow [facility] Comment on above: Order Comment: If pa tient catheterized >2 days, discontinue current catheter, and insert new catheter prior to collection Performed By: #### R ENAL #### [address] [address] Glucose (U) [Mass/Vol] 300 mg/dL Abnormal Negative [facility] Comment on above: Order Comment: If pa tient catheterized >2 days, discontinue current catheter, and insert new catheter prior to collection Performed By: #### R ENAL #### [address] [address] Ketones Ql (U) Negative Normal Negative [facility] Comment on above: Order Comment: If pa tient catheterized >2 days, discontinue current catheter, and insert new catheter prior to collection Performed By: #### R ENAL #### [address] [address] UA Blood Negative Normal Negative [facility] Comment on above: Order Comment: If pa tient catheterized >2 days, discontinue current catheter, and insert new catheter prior to collection Performed By: #### R ENAL #### [address] [address] UA Clarity Clear Normal Clear [facility] Comment on above: Order Comment: If pa tient catheterized >2 days, discontinue current catheter, and insert new catheter prior to collection Performed By: #### R ENAL #### [address] [address] UA Leukocyte Esterase Negative Normal Negative [facility] Comment on above: Order Comment: If pa tient catheterized >2 days, discontinue current catheter, and insert new catheter prior to collection Performed By: #### R ENAL #### [address] [address] UA Nitrite Negative Normal Negative [facility] Comment on above: Order Comment: If pa tient catheterized >2 days, discontinue current catheter, and insert new catheter prior to collection Performed By: #### R ENAL #### [address] [address] UA pH 5.0 Normal 4.5 - 7.8 [facility] Comment on above: Order Comment: If pa tient catheterized >2 days, discontinue current catheter, and insert new catheter prior to collection Performed By: #### R ENAL #### [address] [address] UA Protein Negative Normal Negative [facility] Comment on above: Order Comment: If pa tient catheterized >2 days, discontinue current catheter, and insert new catheter prior to collection Performed By: #### R ENAL #### [address] [address] UA Source Catheter Normal [facility] Comment on above: Order Comment: If pa tient catheterized >2 days, discontinue current catheter, and insert new catheter prior to collection Performed By: #### R ENAL #### [address] [address] UA Spec Grav 1.011 Normal 1.003-1.035 [facility] Comment on above: Order Comment: If pa tient catheterized >2 days, discontinue current catheter, and insert new catheter prior to collection Performed By: #### R ENAL #### [place] [address] [place] [address] UA Urobilinogen Normal Normal 0.2 - 1.0 [facility] Comment on above: Order Comment: If pa tient catheterized >2 days, discontinue current catheter, and insert new catheter prior to collection Performed By: #### R ENAL #### [address] [address] Urobilinogen (U) [Mass/Vol] Negative Normal Negative [facility] Comment on above: Order Comment: If pa tient catheterized >2 days, discontinue current catheter, and insert new catheter prior to collection Performed By: #### R ENAL #### [address] [address] US Renal and Bladderon 07-23 US Renal [...] Electronically Signed in Other Vendor System) Normal [facility] VL Extremity Venous Duplex [place] 07-23-2024 VL Extremity Venous Duplex [place] Preliminary Technologist Report A bilateral lower extremity venous exam was performed. Appeared to be a normal venous exam, all visualized vessels bilaterally were compressible and patent with no evidence of acute or chronic DVT. Preliminary results called to Rani in CCU at 2:25 pm. [employer] Superintendent: Christiano Phillips RVElizabeth _ Radiologist Report CLINICAL [...] Electronically Signed in Other Vendor System) Normal [facility] XR Chest 1 Viewon 07-23-2024 XR [...] Electronically Signed in Other Vendor System) Normal [facility] CBC with Auto Differentialon 07-22-2024 Basophils (Bld) [#/Vol] 0.03 10*3/uL [facility] Basophils/100 WBC (Bld) 0 % 0 - 2 % B on [facility] Eosinophils (Bld) [#/Vol] [facility] Eosinophils/100 WBC (Bld) 0 % Low 1 - 4 % [facility] Erythrocyte distribution width (RBC) [Ratio] 12.6 % 11.8 - 14.4 % [facility] Hematocrit (Bld) [Volume fraction] 32.3 % Low 40.7 - 50.3 % [facility] Hemoglobin (Bld) [Mass/Vol] 11.3 g/dL Low 13.0 - 17.0 g/dL [facility] Immature granulocytes (Bld) [#/Vol] 0.03 10*3/uL [facility] Immature granulocytes/100 WBC (Bld) 0 % 0 [facility] Interpretation and review of laboratory results Abnormal Bon [facility] Lymphocytes/100 WBC (Bld) 21 % Low 24 - 43 % [facility] Lymphocytes/100 WBC (Bld) 1.62 % [facility] MCH (RBC) [Entitic mass] 30.8 pg 25.2 - 33.5 pg [facility] MCHC (RBC) [Mass/Vol] 35.0 g/dL High 28.4 - 34.8 g/dL [facility] MCV (RBC) [Entitic vol] 88.0 fL 82.6 - 102.9 fL [facility] Monocytes/100 WBC (Bld) 10 % 3 - 12 % B on [facility] Monocytes/100 WBC (Bld) 0.79 % B on [facility] Neutrophils/100 WBC (Bld) 69 % High 36 - 65 % [facility] Nucleated RBC/100 WBC (Bld) [Ratio] 0.0 % 0.0 per 100 WBC [facility] Platelet mean volume (Bld) [Entitic vol] 11.4 fL 8.1 - 13.5 fL [facility] Platelets (Bld) [#/Vol] 309 10*3/uL [facility] RBC (Bld) [#/Vol] 3.67 10*6/uL Low 4.21 - 5.7 7 m/uL [facility] Segmented neutrophils/100 WBC (Bld) 5.40 % [facility] WBC other (Bld) [#/Vol] 7.9 B on [facility] CBC with Diffon 07-22-2024 Abs. Basophil 0.03 k/uL Normal 0.00-0.20 [facility] Comment on above: Performed By: #### M G, CDP, CP, URI, LIP ####[address] [place], [place] [id number] Lab Director: Eder Herrera MD#### PTHNCA ####[address] [id number] lab Director: Jimenez Pruett MD Abs. Eosinophil <0.03 Normal 0.00-0.44 [facility] Comment on above: Performed By: #### M G, CDP, CP, URI, LIP ####[address] [place], [place] [id number] Lab Director: Eder Herrera MD#### PTHNCA ####[place] [place] [address] Lab Director: Jimenez Pruett MD Abs.Imm.Granulocyte 0.03 k/uL Normal 0.00-0.30 [facility] Comment on above: Performed By: #### M G, CDP, CP, URI, LIP ####[address] [place], [place] [address])[phone] Director: Eder Herrera MD#### PTHNCA ####[address] [address] Lab Director: Jimenez Pruett MD Abs.Neutrophil (Seg) 5.40 k/uL Normal 1.50-8.10 [facility] Comment on above: Performed By: #### M G, CDP, CP, URI, LIP ####[address] [place], [place] [address])[phone] Director: Eder Herrera MD#### PTHNCA ####[address] [address] Lab Director: Jimenez Pruett MD Basophils/100 WBC (Bld) 0 % Normal 0-2 M [facility] Comment on above: Performed By: #### M G, CDP, CP, URI, LIP ####[address] [place] [address])[phone] Director: Eder Herrera MD#### PTHNCA ####[address] [address] Lab Director: Jimenez Pruett MD Eosinophils/100 WBC (Bld) 0 % Low 1-4 [facility] Comment on above: Performed By: #### M G, CDP, CP, URI, LIP ####[address] [place] [id number]([facility])[phone] Director: Eder Herrera MD#### PTHNCA ####[place] [address] [place] [address] Lab Director: Jimenez Pruett MD Erythrocyte distribution width (RBC) [Ratio] 12.6 % Normal 11.8-14.4 [facility] Comment on above: Performed By: #### M G, CDP, CP, URI, LIP ####[address] [place], [place] [address])[phone] Director: Eder Herrera MD#### PTHNCA ####[place] [address] [place] [address] Lab Director: Jimenez Pruett MD Hematocrit (Bld) [Volume fraction] 32.3 % Low 40.7-50.3 [facility] Comment on above: Performed By: #### M G, CDP, CP, URI, LIP ####[address] [place] [address])[phone] Director: Eder Herrera MD#### PTHNCA ####[place] [address] Lab Director: Jimenez Pruett MD Hemoglobin (Bld) [Mass/Vol] 11.3 g/dL Low 13.0-17.0 [facility] Comment on above: Performed By: #### M G, CDP, CP, URI, LIP ####[address] [place] [id number]([facility])[phone] Director: Eder Herrera MD#### PTHNCA ####[address] [address] Lab Director: Jimenez Pruett MD Immature granulocytes/100 WBC (Bld) 0 % Normal 0 [facility] Comment on above: Performed By: #### M G, CDP, CP, URI, LIP ####[address] [address] Lab Director: Eder Herrera MD#### PTHNCA ####[address] [place] [address] Lab Director: Jimenez Pruett MD Lymphocytes (Bld) [#/Vol] 1.62 10*3/uL Normal 1.10-3.70 [facility] Comment on above: Performed By: #### M G, CDP, CP, URI, LIP ####[address] [place] 9452883 Lab Director: Eder Herrera MD#### PTHNCA ####[place] [address] Lab Director: Jimenez Pruett MD Lymphocytes/100 WBC (Bld) 21 % Low 24-43 [facility] Comment on above: Performed By: #### Bettina Saha, CDP, CP, URI, LIP ####[address] [place] [address]2883 Lab Director: Eder Herrera MD#### PTHNCA ####[place] [address] Lab Director: Jimenez Pruett MD MCH (RBC) [Entitic mass] 30.8 pg Normal 25.2-33.5 [facility] Comment on above: Performed By: #### Bettina G, CDP, CP, URI, LIP ####[address] [place], [place] 1899783 Lab Director: Eder Herrera MD#### PTHNCA ####[address] [place] [address] Lab Director: Jimenez Pruett MD MCHC (RBC) [Mass/Vol] 35.0 g/dL High 28.4-34.8 [facility] Comment on above: Performed By: #### M G, CDP, CP, URI, LIP ####[address] [place] [id number])[phone] Director: Eder Herrera MD#### PTHNCA ####[address] [phone] Director: Jimenez Pruett MD MCV (RBC) [Entitic vol] 88.0 fL Normal 82.6-102.9 M [facility] Comment on above: Performed By: #### M G, CDP, CP, URI, LIP ####[address] [place] [id number])[phone] Director: Eder Herrera MD#### PTHNCA ####[place], [place] [address])[phone] Director: Jimenez Pruett MD Monocytes (Bld) [#/Vol] 0.79 10*3/uL Normal 0.10-1.20 [facility] Comment on above: Performed By: #### M G, CDP, CP, URI, LIP ####[address] [place], [place] [address])[phone] Director: Eder Herrera MD#### PTHNCA ####[place], [place] [phone])[phone] Director: Jimenez Pruett MD Monocytes/100 WBC (Bld) 10 % Normal 3-12 M [facility] Comment on above: Performed By: #### M G, CDP, CP, URI, LIP ####[address] [place] [phone] Lab Director: Eder Herrera MD#### PTHNCA ####[address] [phone] Director: Jimenez Pruett MD Neutrophil (Seg) 69 % High 36-65 [facility] Comment on above: Performed By: #### M G, CDP, CP, URI, LIP ####[address] , [place] [phone])[phone] Director: Eder Herrera MD#### PTHNCA ####[address] [place], [place] [phone] Director: Jimenez Pruett MD NRBC Automated 0.0 per 100 WBC Normal 0.0 [facility] Comment on above: Performed By: #### M G, CDP, CP, URI, LIP ####[address] [place], [place] [phone] Director: Eder Herrera MD#### PTHNCA ####[address] [place], [place] [phone] Director: Jimenez Pruett MD Platelet mean volume (Bld) [Entitic vol] 11.4 fL Normal 8.1-13.5 [facility] Comment on above: Performed By: #### M G, CDP, CP, URI, LIP ####[address] , [place] [phone] Director: Eder Herrera MD#### PTHNCA ####[address] [address] Lab Director: Jimenez Pruett MD Platelets (Bld) [#/Vol] 309 10*3/uL Normal 138-453 [facility] Comment on above: Performed By: #### M G, CDP, CP, URI, LIP ####[address] [place] [address] Lab Director: Eder Herrera MD#### PTHNCA ####[address] [place], [place] [phone] Director: Jimenez Pruett MD RBC (Bld) [#/Vol] 3.67 10*6/uL Low 4.21-5.77 [facility] Comment on above: Performed By: #### M G, CDP, CP, URI, LIP ####[facility] [place], [place] [phone] Lab Director: Eder Herrera MD#### PTHNCA ####[facility] [address] [place], [place] 1218108 Lab Director: Jimenez Pruett MD WBC (Bld) [#/Vol] 7.9 10*3/uL Normal 3.5-11.3 [facility] Comment on above: Performed By: #### M G, CDP, CP, URI, LIP ####[facility] , [place] 6222583 lab Director: Eder Herrera MD#### PTHNCA ####[facility] [id number] [place], [place] [phone] lab Director: Jimenez Pruett MD [facility] 07-22-2024 Albumin [Mass/Vol] 4.3 g/dL 3.5 - 5.2 g/dL [facility] Albumin/Globulin [Mass ratio] 1.3 {ratio} 1.0 - 2.5 [facility] ALP [Catalytic activity/Vol] 83 U/L 40 - 129 U/L [facility] ALT [Catalytic activity/Vol] 10 U/L 10 - 50 U/L [facility] Anion gap [Moles/Vol] 20 mmol/L High 9 - 16 mmol/L [facility] AST [Catalytic activity/Vol] 13 U/L 10 - 50 U/L [facility] Bilirubin [Mass/Vol] 0.3 mg/dL 0.00 - 1.20 mg/dL [facility] Calcium [Mass/Vol] 7.7 mg/dL Low 8.6 - 10. 4 mg/dL [facility] Chloride [Moles/Vol] 86 mmol/L Low 98 - 10 7 mmol/L [facility] CO2 [Moles/Vol] 24 mmol/L 20 - 31 mmol/L [facility] Creatinine [Mass/Vol] 4.5 mg/dL High 0.70 - 1.20 mg/dL [facility] Yuliet Lancastert Rate 14 Low - PINF [facility] Comment on above: These results are not [...] 273 mg/dL High 74 - 99 mg/dL [facility] Potassium [Moles/Vol] 4.6 mmol/L 3.7 - 5.3 mmol/L [facility] Protein [Mass/Vol] 7.5 g/dL 6.6 - 8.7 g/dL [facility] Sodium [Moles/Vol] 130 mmol/L Low 136 - 145 mmol/L [facility] Urea nitrogen [Mass/Vol] 127 mg/dL Critically high 8 - 23 mg/dL [facility] Urea nitrogen/Creatinine [Mass ratio] 28 mg/mg High 9 - 20 [facility] COVID-19, Rapidon 07-22-2024 SARS-CoV-2 (COVID-19) RdRp gene ARIEL+probe Ql (Resp) Not detected Not Detected [facility] Comment on above: Rapid NAAT: The specimen [...] Nucleic Acid Amplification Specimen Description .NASOPHARYNGEAL SWAB [facility] CT ABDOMEN PELVIS WO CONTRAS Ton 07-22-2024 CT ABDOMEN PELVIS WO CONTRAST Normal [facility] CT Abdomen and Pelvis WO con traston 07-22-2024 1. No acute intra-abdominal or intrapelvic process. No findings to explain the patient's symptoms. 2. Additional incidental findings as above. [facility] EXAMINATION: CT OF THE ABDOMEN AND [...] redemonstrated. Multilevel degenerative changes to the spine. [facility] Cleve Shi M D - 07/22/2024 [...] symptoms. 2. Additional incidental findings as above. [facility] Radiology Study observation (narrative) [facility] CT Abdomen and Pelvis WO con trastOrdered By: Cleve Shi on 07-22-2024 [facility] Work Phone: Comp Metabolic Profon 2024 Albumin [Mass/Vol] 4.3 g/dL Normal 3.5-5.2 [facility] Comment on above: Performed By: #### M G, CDP, CP, URI, LIP ####[address] [place], [place] [address]83 Lab Director: Eder Herrera MD#### PTHNCA ####[address] [place] [address] Lab Director: Jimenez Pruett MD Albumin/Glob Ratio 1.3 Normal 1.0-2.5 [facility] Comment on above: Performed By: #### M G, CDP, CP, URI, LIP ####[address] [place], [place] [phone] Lab Director: Eder Herrera MD#### PTHNCA ####[address] [address] Lab Director: Jimenez Pruett MD Alkaline Phos 83 U/L Normal 40-129 [facility] Comment on above: Performed By: #### M G, CDP, CP, URI, LIP ####[address] [place] [address] Lab Director: Eder Herrera MD#### PTHNCA ####[address] [place], [place] [phone] Director: Jimenez Pruett MD ALT [Catalytic activity/Vol] 10 U/L Normal 10-50 [facility] Comment on above: Performed By: #### M G, CDP, CP, URI, LIP ####[address] [place] [address] Lab Director: Eder Herrera MD#### PTHNCA ####[address] [place] [address] Lab Director: Jimenez Pruett MD Anion gap [Moles/Vol] 20 mmol/L High 9-16 [facility] Comment on above: Performed By: #### M G, CDP, CP, URI, LIP ####[address] [place], [place] 5337283 Lab Director: Eder Herrera MD#### PTHNCA ####[address] [phone] Director: Jimenez Pruett MD AST [Catalytic activity/Vol] 13 U/L Normal 10-50 [facility] Comment on above: Performed By: #### M G, CDP, CP, URI, LIP ####[address] [place] [address] Lab Director: Eder Herrera MD#### PTHNCA ####[address] [phone] Director: Jimenez Pruett MD Bilirubin [Mass/Vol] 0.3 mg/dL Normal 0.00-1.20 [facility] Comment on above: Performed By: #### M G, CDP, CP, URI, LIP ####[address] [place] [address] Lab Director: Eder Herrera MD#### PTHNCA ####[address] [phone] Director: Jimenez Pruett MD BUN/CRE Ratio 28 High 9-20 [facility] Comment on above: Performed By: #### M G, CDP, CP, URI, LIP ####[address] [place] [address] Lab Director: Eder Herrera MD#### PTHNCA ####[address] [place], [place] 8930108 Lab Director: Jimenez Pruett MD Calcium [Mass/Vol] 7.7 mg/dL Low 8.6-10.4 [facility] Comment on above: Performed By: #### M G, CDP, CP, URI, LIP ####[address] [place], [place] 7105583 Lab Director: Eder Herrera MD#### PTHNCA ####[address] [address] Lab Director: Jimenez Pruett MD Chloride [Moles/Vol] 86 mmol/L Low 98-107 [facility] Comment on above: Performed By: #### M G, CDP, CP, URI, LIP ####[address] [place], [place] 285[address]383 Lab Director: Eder Herrera MD#### PTHNCA ####[address] [address] Lab Director: Jimenez Pruett MD CO2 [Moles/Vol] 24 mmol/L Normal 20-31 [facility] Comment on above: Performed By: #### M G, CDP, CP, URI, LIP ####[address] [place], [place] 645[address]83 Lab Director: Eder Herrera MD#### PTHNCA ####[address] [address] Lab Director: Jimenez Pruett MD Creatinine [Mass/Vol] 4.5 mg/dL High 0.70-1.20 [facility] Comment on above: Performed By: #### M G, CDP, CP, URI, LIP ####[address] [place], [place] 1924483 Lab Director: Eder Herrera MD#### PTHNCA ####[address] [phone] Lab Director: Jimenez Pruett MD GFR/1.73 sq M.predicted among non-blacks MDRD (S/P/Bld) [Vol rate/Area] 14 mL/min/{1.73_m2} Low >60 [facility] Comment on above: Result Comment: Thes e [...] #### M G, CDP, CP, URI, LIP ####[address] [place] [phone] Lab Director: Eder Herrera MD#### PTHNCA ####[address] [address] Lab Director: Jimenez Pruett MD Glucose [Mass/Vol] 273 mg/dL High 74-99 [facility] Comment on above: Performed By: #### M G, CDP, CP, URI, LIP ####[address] [place] [address]83 Lab Director: Eder Herrera MD#### PTHNCA ####[address] [place] [address] Lab Director: Jimenez Pruett MD Potassium [Moles/Vol] 4.6 mmol/L Normal 3.7-5.3 [facility] Comment on above: Performed By: #### M G, CDP, CP, URI, LIP ####[address] [place], [place] 4582783 Lab Director: Eder Herrera MD#### PTHNCA ####[address] [place] [address] Lab Director: Jimenez Pruett MD Protein [Mass/Vol] 7.5 g/dL Normal 6.6-8.7 [facility] Comment on above: Performed By: #### M G, CDP, CP, URI, LIP ####[address] [place] [address] Lab Director: Eder Herrera MD#### PTHNCA ####[address] [address] Lab Director: Jimenez Pruett MD Sodium [Moles/Vol] 130 mmol/L Low 136-145 [facility] Comment on above: Performed By: #### M G, CDP, CP, URI, LIP ####[address] [place], [place] 35[address]83 Lab Director: Eder Herrera MD#### PTHNCA ####[address] [address] Lab Director: Jimenez Pruett MD Urea nitrogen [Mass/Vol] 127 mg/dL Critically high 8-23 [facility] Comment on above: Performed By: #### M G, CDP, CP, URI, LIP ####[address] , [place] [phone] Lab Director: Eder Herrera MD#### PTHNCA ####[address] [address] Lab Director: Jimenez Pruett MD Flu A/B Ag Detectionon 07-22 Flu A Ag Detection Negative Normal NEG [facility] Comment on above: Result Comment: for Influenza A Antigen Performed By: #### F LUABA ####[address] [place] [address] Lab Director: Eder Herrera MD Flu B Ag Detection Negative Normal NEG [facility] Comment on above: Result Comment: for Influenza B Antigen. Performed By: #### F LUABA ####[address] [place], [place] 8378383 Lab Director: Eder Herrera MD Lactic Acidon 07-22-2024 Lactate (BldV) [Moles/Vol] 2.2 mmol/L 0.5 - 2.2 mmol/L [facility] Lactate [Moles/Vol] 2.2 mmol/L Normal 0.5-2.2 [facility] Comment on above: Performed By: #### L ACTIC ####[address] [place] [address] Lab Director: Eder Herrera MD Lipaseon 07-22-2024 Lipase [Catalytic activity/Vol] 138 U/L High 13 - 60 U/L [facility] Lipase [Catalytic activity/Vol] 138 U/L High 13-60 [facility] Comment on above: Performed By: #### Bettina Saha, BRADY, CP, URI, LIP ####[address] [place], [place] 755[address]83 Lab Director: Eder Herrera MD#### PTHNCA ####[address] [place], [place] 0779308 Lab Director: Jimenez Pruett MD Magnesiumon 6 Magnesium [Mass/Vol] 1.9 mg/dL 1.6 - 2 .4 mg/dL [facility] Magnesium [Mass/Vol] 1.9 mg/dL Normal 1.6-2.4 [facility] Comment on above: Performed By: #### M Yifan, BRADY, CP, URI, LIP ####[address] [place] [address] Lab Director: Eder Herrera MD#### PTHNCA ####[facility] [place], [place] 3731008 Lab Director: Jimenez Pruett MD Microscopic Urinalysison Bacteria LM Ql (Urine sed) 2+ Abnormal None [facility] Casts LM.LPF (Urine sed) [#/Area] 20 TO 50 HYALINE /LPF [facility] Epithelial cells LM.HPF (Urine sed) [#/Area] 0 TO 2 [facility] Interpretation and review of laboratory results Abnormal [facility] RBC LM.HPF (Urine sed) [#/Area] 0 TO 2 [facility] WBC LM.HPF (Urine sed) [#/Area] 0 TO 2 [facility] No Panel Informationon 07-22 Interpretation and review of laboratory results Abnormal [facility] PTH, Intacton 07-22-2024 Interpretation and review of laboratory results Abnormal [facility] Parathyrin.intact [Mass/Vol] 137.0 pg/mL High 15 - 65 pg/mL [facility] PTH, Intact 137.0 pg/mL High 15-65 [facility] Comment on above: Performed By: #### M G, CDP, CP, URI, LIP ####[facility] [place] [address] Lab Director: Eder Herrera MD#### PTHNCA ####[address] [place], [place] 7041708 Lab Director: Jimenez Pruett MD Rapid influenza A/B antigens on 07-22-2024 FLUAV Ag Ql (Unsp spec) Negative NEGATIVE B on [facility] Comment on above: for Influenza A Anti gen FLUBV Ag Ql (Unsp spec) Negative NEGATIVE B on [facility] Comment on above: for Influenza B Anti gen. [facility] [id number] 07-22-2024 SARS-CoV-2 (COVID-19) RNA ARIEL+probe Ql (Unsp spec) Not detected Normal [facility] Comment on above: Result Comment: Rapi d [...] Acid Amplification Performed By: #### C OVRB ####[address] , [place] 205[address]83 Lab Director: Eder Herrera MD UA w/Reflex Cultureon 2024 Bilirubin, SemiQt,Ur Negative Normal NEG [facility] Comment on above: Performed By: #### U SHAWN UAX ####[address] [place] [address] Lab Director: Eder Herrera MD Blood, Urine Negative Normal NEG [facility] Comment on above: Performed By: #### U SHAWN, UAX ####[address] , [place] [id number] Lab Director: Eder Herrera MD Clarity (U) Clear Normal CLEAR [facility] Comment on above: Performed By: #### U SHAWN, UAX ####[address] , [place] 9883883 Lab Director: Eder Herrera MD Color (U) Yellow Normal YEL [facility] Comment on above: Performed By: #### U SHAWN, UAX ####[address] , [place] [id number] Lab Director: Eder Herrera MD Glucose Ql (U) 2+ mg/dL Abnormal NEG [facility] Comment on above: Performed By: #### U SHAWN, UAX ####[address] , [place] 587[address]83 Lab Director: Eder Herrera MD Ketones Ql (U) Negative Normal NEG [facility] Comment on above: Performed By: #### U MICAO, UAX ####[address] , [place] 3475683 Lab Director: Eder Herrera MD Leukocyte esterase Test strip Ql (U) Negative Normal NEG [facility] Comment on above: Performed By: #### U MICAO, UAX ####[address] , [place] 885[address]83 Lab Director: Eder Herrera MD Nitrite,Ur Negative Normal NEG [facility] Comment on above: Performed By: #### U MICAO, UAX ####[address] , [place] 3276183 Lab Director: Eder Herrera MD PH,Ur 5.5 Normal 5.0-9.0 [facility] Comment on above: Performed By: #### U MICAO, UAX ####[address] [place] [address] Lab Director: Eder Herrera MD Protein Ql (U) Negative Normal NEG [facility] Comment on above: Performed By: #### U MICAO, UAX ####[address] , [place] 0131283 Lab Director: Eder Herrera MD Spec. Purdy,Ur 1.010 Normal 1.010-1.020 [facility] Comment on above: Performed By: #### U MICAO, UAX ####[address] , [place] 8608383 lab Director: Eder Herrera MD Urobilinogen,Ur Normal Normal 0.0-1.0 [facility] Comment on above: Performed By: #### U MICAO, UAX ####[facility] [place] [address] [facility] Director: Eder Herrera MD Uric Acidon 07-22-2024 Urate [Mass/Vol] 7.6 mg/dL High 3.4 - 7.0 mg/dL [facility] Urate [Mass/Vol] 7.6 mg/dL High 3.4-7.0 [facility] Comment on above: Performed By: #### M G, CDP, CP, URI, LIP ####[facility] [place] [address] lab Director: Eder Herrera MD#### PTHNCA ####[address] [place], [place] 2430708 lab Director: Jimenez Pruett MD Urinalysis with Reflex to Cu ltureon 07-22-2024 Bilirubin Ql (U) Negative NEGATIVE [facility] Clarity (U) Clear Clear [facility] Color (U) Yellow Yellow [facility] Glucose Test strip (U) [Mass/Vol] 2+ Abnormal NEGATIVE mg/dL [facility] Hemoglobin Auto test strip Ql (U) Negative NEGATIVE [facility] Interpretation and review of laboratory results Abnormal [facility] Ketones (U) [Mass/Vol] Negative NEGAT PAO mg/dL [facility] Leukocyte esterase Test strip Ql (U) Negative NEGATIVE [facility] Nitrite Ql (U) Negative NEGATIVE [place] [facility] pH (U) 5.5 [pH] 5.0 - 9.[address] [facility] Protein (U) [Mass/Vol] Negative NEGAT PAO mg/dL [facility] Specific gravity (U) [Rel density] 1.010 1.010 - 1.[address] [facility] Urobilinogen Qn (U) Normal 0.0 - 1. 0 EU/dL [facility] Urinalysis,Microon 5 Bacteria 2+ Abnormal NONE [facility] Comment on above: Performed By: #### U MICAO, UAX ####[address] , [place] 4896383 lab Director: Eder Herrera MD Casts 20 TO 50 Normal [facility] Comment on above: Result Comment: HYAL INE Performed By: #### U MICAO, UAX ####[address] , [place] 3749283 lab Director: Eder Herrera MD Epithelial cells LM Ql (Urine sed) 0 TO 2 Normal 0-5 [facility] Comment on above: Performed By: #### U MICAO, UAX ####[address] , [place] 4721483 lab Director: Eder Herrera MD Urine RBC's 0 TO 2 Normal 0-2 [facility] Comment on above: Performed By: #### U MICAO, UAX ####[address] , [place] 8198983 lab Director: Eder Herrera MD Urine WBC's 0 TO 2 Normal 0-5 [facility] Comment on above: Performed By: #### U MICAO, UAX ####[address] , [place] 9369283 lab Director: Eder Herrera MD Magnesiumon 07-13-2024 Magnesium [Mass/Vol] 1.8 mg/dL 1.6 - 2 .4 mg/dL [facility] Magnesium [Mass/Vol] 1.8 mg/dL Normal 1.6-2.4 [facility] Comment on above: Performed By: #### M G, RENP ####[address] , [place] 857[address]83 lab Director: Eder Herrera MD No Panel Informationon 07-13 [facility] Renal Function Panelon 07-13 Albumin [Mass/Vol] 4.2 g/dL 3.5 - 5.2 g/dL [facility] Anion gap [Moles/Vol] 13 mmol/L 9 - 16 mmol/L [facility] Calcium [Mass/Vol] 8.9 mg/dL 8.6 - 10. 4 mg/dL [facility] Chloride [Moles/Vol] 96 mmol/L Low 98 - 10 7 mmol/L [facility] CO2 [Moles/Vol] 27 mmol/L 20 - 31 mmol/L [facility] Creatinine [Mass/Vol] 2.3 mg/dL High 0.70 - 1.20 mg/dL [facility] Est, Glom Filt Rate 31 Low - PINF [facility] Comment on above: These results are not [...] 137 mg/dL High 74 - 99 mg/dL [facility] Interpretation and review of laboratory results Abnormal [facility] Phosphate [Mass/Vol] 3.7 mg/dL 2.5 - 4 .5 mg/dL [facility] Potassium [Moles/Vol] 4.1 mmol/L 3.7 - 5.3 mmol/L [facility] Sodium [Moles/Vol] 136 mmol/L 136 - 145 mmol/L [facility] Urea nitrogen [Mass/Vol] 82 mg/dL High 8 - 23 mg/dL [facility] Urea nitrogen/Creatinine [Mass ratio] 36 mg/mg High 9 - 20 [facility] Albumin [Mass/Vol] 4.2 g/dL Normal 3.5-5.2 [facility] Comment on above: Performed By: #### VALARIE Foster ####[facility] [place] [address] Lab Director: Eder Herrera MD Anion gap [Moles/Vol] 13 mmol/L Normal 9-16 [facility] Comment on above: Performed By: #### Bettina Saha, RENP ####[address] , [place] [phone] lab Director: Eder Herrera MD BUN/CRE Ratio 36 High 9-20 [facility] Comment on above: Performed By: #### Bettina Saha, RENP ####[address] , [place] [id number] lab Director: Eder Herrera MD Calcium [Mass/Vol] 8.9 mg/dL Normal 8.6-10.4 [facility] Comment on above: Performed By: #### Bettina Saha, RENP ####[address] , [place] [id number] Lab Director: Eder Herrera MD Chloride [Moles/Vol] 96 mmol/L Low 98-107 [facility] Comment on above: Performed By: #### Bettina Saha, RENP ####[address] [place] [address] Lab Director: Eder Herrera MD CO2 [Moles/Vol] 27 mmol/L Normal 20-31 [facility] Comment on above: Performed By: #### Bettina Saha, RENP ####[address] , [place] 157[address]83 Lab Director: Eder Herrera MD Creatinine [Mass/Vol] 2.3 mg/dL High 0.70-1.20 [facility] Comment on above: Performed By: #### Bettina Saha, RENP ####[address] , [place] [phone] lab Director: Eder Herrera MD GFR/1.73 sq M.predicted among non-blacks MDRD (S/P/Bld) [Vol rate/Area] 31 mL/min/{1.73_m2} Low >60 [facility] Comment on above: Result Comment: Thes e [...] secretion. Performed By: #### Bettina Saha, RENP ####[address] [place] [address] Lab Director: Eder Herrera MD Glucose [Mass/Vol] 137 mg/dL High 74-99 [facility] Comment on above: Performed By: #### Bettina Saha, RENP ####[address] [place] [address] Lab Director: Eder Herrera MD Phosphorus, Inorg. 3.7 mg/dL Normal 2.5-4.5 [facility] Comment on above: Performed By: #### Bettina Saha, RENP ####[address] [place] [address] Lab Director: Eder Herrera MD Potassium [Moles/Vol] 4.1 mmol/L Normal 3.7-5.3 [facility] Comment on above: Performed By: #### Bettina Saha, RENP ####[address] [place] [address] Lab Director: Eder Herrera MD Sodium [Moles/Vol] 136 mmol/L Normal 136-145 [facility] Comment on above: Performed By: #### Bettina Saha, RENP ####[address] [place] [address] Lab Director: Eder Herrera MD Urea nitrogen [Mass/Vol] 82 mg/dL High 8-23 [facility] Comment on above: Performed By: #### Bettina Saha, RENP ####[facility] [place], [place] [phone] Lab Director: Eder Herrera MD PTH, Intacton 06-28-2024 Interpretation and review of laboratory results Abnormal [facility] Parathyrin.intact [Mass/Vol] 182.0 pg/mL High 15 - 65 pg/mL [facility] PTH, Intact 182.0 pg/mL High 15-65 [facility] Comment on above: Performed By: #### U AX, MG, RENP, URI, URTPRT, UMICAO, CBC ####[facility] [place] [address] lab Director: Eder Herrera MD#### PTHNCA ####[facility] [id number] [place], [place] 9[address] lab Director: Jimenez Pruett MD CBCon 06-27-2024 Erythrocyte distribution width (RBC) [Ratio] 12.6 % 11.8 - 14.4 % [facility] Hematocrit (Bld) [Volume fraction] 36.8 % Low 40.7 - 50.3 % [facility] Hemoglobin (Bld) [Mass/Vol] 11.9 g/dL Low 13.0 - 17.0 g/dL [facility] Interpretation and review of laboratory results Abnormal [facility] MCH (RBC) [Entitic mass] 29.8 pg 25.2 - 33.5 pg [facility] MCHC (RBC) [Mass/Vol] 32.3 g/dL 28.4 - 34.8 g/dL [facility] MCV (RBC) [Entitic vol] 92.2 fL 82.6 - 102.9 fL [facility] Nucleated RBC/100 WBC (Bld) [Ratio] 0.0 % 0.0 per 100 WBC [facility] Platelet mean volume (Bld) [Entitic vol] 10.4 fL 8.1 - 13.5 fL [facility] Platelets (Bld) [#/Vol] 320 10*3/uL [facility] RBC (Bld) [#/Vol] 3.99 10*6/uL Low 4.21 - 5.7 7 m/uL [facility] WBC other (Bld) [#/Vol] 6.9 B on [facility] Erythrocyte distribution width (RBC) [Ratio] 12.6 % Normal 11.8-14.4 [facility] Comment on above: Performed By: #### U AX, MG, RENP, URI, URTPRT, UMICAO, CBC ####[address] [place], [place] 364[address]83 Lab Director: Eder Herrera MD#### PTHNCA ####[address] [address] Lab Director: Jimenez Pruett MD Hematocrit (Bld) [Volume fraction] 36.8 % Low 40.7-50.3 [facility] Comment on above: Performed By: #### U AX, MG, RENP, URI, URTPRT, UMICAO, CBC ####[address] [place] [id number] Lab Director: Eder Herrera MD#### PTHNCA ####[address] [address] Lab Director: Jimenez Pruett MD Hemoglobin (Bld) [Mass/Vol] 11.9 g/dL Low 13.0-17.0 [facility] Comment on above: Performed By: #### U AX, MG, RENP, URI, URTPRT, UMICAO, CBC ####[address] [place] 353[address]83 Lab Director: Eder Herrera MD#### PTHNCA ####[address] [phone] Lab Director: Jimenez Pruett MD MCH (RBC) [Entitic mass] 29.8 pg Normal 25.2-33.5 [facility] Comment on above: Performed By: #### U AX, MG, RENP, URI, URTPRT, UMICAO, CBC ####[address] [place] 3531283 Lab Director: Eder Herrera MD#### PTHNCA ####[address] [phone] Lab Director: Jimenez Pruett MD MCHC (RBC) [Mass/Vol] 32.3 g/dL Normal 28.4-34.8 [facility] Comment on above: Performed By: #### U AX, MG, RENP, URI, URTPRT, UMICAO, CBC ####[address] [place] 353[address]83 Lab Director: Eder Herrera MD#### PTHNCA ####[place] [address] Lab Director: Jimenez Pruett MD MCV (RBC) [Entitic vol] 92.2 fL Normal 82.6-102.9 M [facility] Comment on above: Performed By: #### U AX, MG, RENP, URI, URTPRT, UMICAO, CBC ####[address] [place] 353[address]83 Lab Director: Eder Herrera MD#### PTHNCA ####[address] [address] Lab Director: Jimenez Pruett MD NRBC Automated 0.0 per 100 WBC Normal 0.0 [facility] Comment on above: Performed By: #### U AX, MG, RENP, URI, URTPRT, UMICAO, CBC ####[address] [place] 353[address]83 Lab Director: Eder Herrera MD#### PTHNCA ####[facility] [id number] [place], [place] [phone] Director: Jimenez Pruett MD Platelet mean volume (Bld) [Entitic vol] 10.4 fL Normal 8.1-13.5 [facility] Comment on above: Performed By: #### U AX, MG, RENP, URI, URTPRT, UMICAO, CBC ####[address] [place] [address]([facility])[phone] Director: Eder Herrera MD#### PTHNCA ####[place] [address] [place], [place] [address])[phone] Director: Jimenez Pruett MD Platelets (Bld) [#/Vol] 320 10*3/uL Normal 138-453 [facility] Comment on above: Performed By: #### U AX, MG, RENP, URI, URTPRT, UMICAO, CBC ####[address] [place] 353[address] Lab Director: Eder Herrera MD#### PTHNCA ####[address] [place], [place] [phone] Director: Jimenez Pruett MD RBC (Bld) [#/Vol] 3.99 10*6/uL Low 4.21-5.77 [facility] Comment on above: Performed By: #### U AX, MG, RENP, URI, URTPRT, UMICAO, CBC ####[address] [place], [place] 3937283 Lab Director: Eder Herrera MD#### PTHNCA ####[address] [phone] Director: Jimenez Pruett MD WBC (Bld) [#/Vol] 6.9 10*3/uL Normal 3.5-11.3 [facility] Comment on above: Performed By: #### U AX, MG, RENP, URI, URTPRT, UMICAO, CBC ####[facility] [place] [address] [facility] Director: Eder Herrera MD#### PTHNCA ####[address] [place], [place] 5677908 Lab Director: Jimenez Pruett MD Magnesiumon 06-27-2024 Magnesium [Mass/Vol] 1.7 mg/dL 1.6 - 2 .4 mg/dL [facility] Magnesium [Mass/Vol] 1.7 mg/dL Normal 1.6-2.4 [facility] Comment on above: Performed By: #### U AX, MG, RENP, URI, URTPRT, UMICAO, CBC ####[address] [place] [address] [facility] Director: Eder Herrera MD#### PTHNCA ####[address] [place], [place] 4891708 Lab Director: Jimenez Pruett MD Microscopic Urinalysison Epithelial cells LM.HPF (Urine sed) [#/Area] 2 TO 5 [facility] RBC LM.HPF (Urine sed) [#/Area] None [facility] WBC LM.HPF (Urine sed) [#/Area] 0 TO 2 [facility] No Panel Informationon 06-27 [facility] Protein / creatinine ratio, urineon 06-27-2024 Creatinine (U) [Mass/Vol] 61.8 mg/dL 39.0 - 259.0 mg/dL [facility] Protein (U) [Mass/Vol] 7 mg/dL [facility] Comment on above: No normal range esta blished. Urine Total Protein Creatinine Ratio 0.11 0.00 - 0.20 [facility] Protein,Tot,Maxie Uron 2024 Creatinine [Mass/Vol] 61.8 mg/dL Normal 39.0-259.0 [facility] Comment on above: Performed By: #### U AX, MG, RENP, URI, URTPRT, UMICAO, CBC ####[address] [place], [place] 069[address]83 Lab Director: Eder Herrera MD#### PTHNCA ####[address] [place] [address] Lab Director: Jimenez Pruett MD Tot Prot. Conc. 7 mg/dL Normal [facility] Comment on above: Result Comment: No n ormal range established. Performed By: #### U AX, MG, RENP, URI, URTPRT, UMICAO, CBC ####[address] [place], [place] 8535483 Lab Director: Eder Herrera MD#### PTHNCA ####[address] [place] [address] Lab Director: Jimenez Pruett MD TP/Cre Ratio 0.11 Normal 0.00-0.20 [facility] Comment on above: Performed By: #### U AX, MG, RENP, URI, URTPRT, UMICAO, CBC ####[address] [place], [place] 5319283 Lab Director: Eder Herrera MD#### PTHNCA ####[address] [place] [address] Lab Director: Jimenez Pruett MD Renal Function Panelon 06-27 Albumin [Mass/Vol] 4.0 g/dL 3.5 - 5.2 g/dL [facility] Anion gap [Moles/Vol] 11 mmol/L 9 - 16 mmol/L [facility] Calcium [Mass/Vol] 8.4 mg/dL Low 8.6 - 10. 4 mg/dL [facility] Chloride [Moles/Vol] 99 mmol/L 98 - 10 7 mmol/L [facility] CO2 [Moles/Vol] 26 mmol/L 20 - 31 mmol/L [facility] Creatinine [Mass/Vol] 1.9 mg/dL High 0.70 - 1.20 mg/dL [facility] Yuliet [place] Rate 39 Low - PINF [facility] Comment on above: These results are not [...] 108 mg/dL High 74 - 99 mg/dL [facility] Interpretation and review of laboratory results Abnormal [facility] Phosphate [Mass/Vol] 3.1 mg/dL 2.5 - 4 .5 mg/dL [facility] Potassium [Moles/Vol] 4.7 mmol/L 3.7 - 5.3 mmol/L [facility] Sodium [Moles/Vol] 136 mmol/L 136 - 145 mmol/L [facility] Urea nitrogen [Mass/Vol] 54 mg/dL High 8 - 23 mg/dL [facility] Urea nitrogen/Creatinine [Mass ratio] 28 mg/mg High 9 - 20 [facility] Albumin [Mass/Vol] 4.0 g/dL Normal 3.5-5.2 [facility] Comment on above: Performed By: #### U AX, MG, RENP, URI, URTPRT, UMICAO, CBC ####[facility] [place] [address] Lab Director: Eder Herrera MD#### PTHNCA ####[facility] [id number] [place] [address] Lab Director: Jimenez Pruett MD Anion gap [Moles/Vol] 11 mmol/L Normal 9-16 [facility] Comment on above: Performed By: #### U AX, MG, RENP, URI, URTPRT, UMICAO, CBC ####[address] [place], [place] 8228783 Lab Director: Eder Herrera MD#### PTHNCA ####[address] [address] Lab Director: Jimenez Pruett MD BUN/CRE Ratio 28 High 9-20 [facility] Comment on above: Performed By: #### U AX, MG, RENP, URI, URTPRT, UMICAO, CBC ####[address] [place], [place] 5184483 Lab Director: Eder Herrera MD#### PTHNCA ####[address] [address] Lab Director: Jimenez Pruett MD Calcium [Mass/Vol] 8.4 mg/dL Low 8.6-10.4 [facility] Comment on above: Performed By: #### U AX, MG, RENP, URI, URTPRT, UMICAO, CBC ####[address] , [place] [phone] Lab Director: Eder Herrera MD#### PTHNCA ####[address] [address] Lab Director: Jimenez Pruett MD Chloride [Moles/Vol] 99 mmol/L Normal 98-107 [facility] Comment on above: Performed By: #### U AX, MG, RENP, URI, URTPRT, UMICAO, CBC ####[address] [place], [place] 5368783 Lab Director: Eder Herrera MD#### PTHNCA ####[address] [address] Lab Director: Jimenez Pruett MD CO2 [Moles/Vol] 26 mmol/L Normal 20-31 [facility] Comment on above: Performed By: #### U AX, MG, RENP, URI, URTPRT, UMICAO, CBC ####[facility] [place] [address] Lab Director: Eder Herrera MD#### PTHNCA ####[facility] [address] [place], [place] 7058808 Lab Director: Jimenez Pruett MD Creatinine [Mass/Vol] 1.9 mg/dL High 0.70-1.20 [facility] Comment on above: Performed By: #### U AX, MG, RENP, URI, URTPRT, UMICAO, CBC ####[address] [place], [place] 0533183 Lab Director: Edre Herrera MD#### PTHNCA ####[address] [place], [place] 7723608 Lab Director: Jimenez Pruett MD GFR/1.73 sq M.predicted among non-blacks MDRD (S/P/Bld) [Vol rate/Area] 39 mL/min/{1.73_m2} Low >60 [facility] Comment on above: Result Comment: Thes e [...] AX, MG, RENP, URI, URTPRT, UMICAO, CBC ####[address] [place], [place] 4831683 Lab Director: Eder Herrera MD#### PTHNCA ####[address] [place] [address] Lab Director: Jimenez Pruett MD Glucose [Mass/Vol] 108 mg/dL High 74-99 [facility] Comment on above: Performed By: #### U AX, MG, RENP, URI, URTPRT, UMICAO, CBC ####[address] [place], [place] [address])[phone] Director: Eder Herrera MD#### PTHNCA ####[address] [address] Lab Director: Jimenez Pruett MD Phosphorus, Inorg. 3.1 mg/dL Normal 2.5-4.5 [facility] Comment on above: Performed By: #### U AX, MG, RENP, URI, URTPRT, UMICAO, CBC ####[address] [place] [address])[phone] Director: Eder Herrera MD#### PTHNCA ####[address] [address] Lab Director: Jimenez Pruett MD Potassium [Moles/Vol] 4.7 mmol/L Normal 3.7-5.3 [facility] Comment on above: Performed By: #### U AX, MG, RENP, URI, URTPRT, UMICAO, CBC ####[address] [place], [place] 9969783 Lab Director: Eder Herrera MD#### PTHNCA ####[address] [address] Lab Director: Jimenez Pruett MD Sodium [Moles/Vol] 136 mmol/L Normal 136-145 [facility] Comment on above: Performed By: #### U AX, MG, RENP, URI, URTPRT, UMICAO, CBC ####[address] , [place] 6461283 Lab Director: Eder Herrera MD#### PTHNCA ####[address] [address] Lab Director: Jimenez Pruett MD Urea nitrogen [Mass/Vol] 54 mg/dL High 8-23 [facility] Comment on above: Performed By: #### U AX, MG, RENP, URI, URTPRT, UMICAO, CBC ####[address] [place], [place] 9401383 Lab Director: Eder Herrera MD#### PTHNCA ####[address] [address] Lab Director: Jimenez Pruett MD UA w/Reflex Cultureon 2024 Bilirubin, SemiQt,Ur Negative Normal NEG [facility] Comment on above: Performed By: #### U AX, MG, RENP, URI, URTPRT, UMICAO, CBC ####[address] , [place] 3921683 Lab Director: Eder Herrera MD#### PTHNCA ####[address] [address] Lab Director: Jimenez Pruett MD Blood, Urine Negative Normal NEG [facility] Comment on above: Performed By: #### U AX, MG, RENP, URI, URTPRT, UMICAO, CBC ####[address] , [place] 4121383 Lab Director: Eder Herrera MD#### PTHNCA ####[address] [phone] Lab Director: Jimenez Pruett MD Clarity (U) Clear Normal CLEAR [facility] Comment on above: Performed By: #### U AX, MG, RENP, URI, URTPRT, UMICAO, CBC ####[facility] , [place] 8760983 Lab Director: Eder Herrera MD#### PTHNCA ####[address] [place], [place] 4469308 Lab Director: Jimenez Pruett MD Color (U) Yellow Normal YEL [facility] Comment on above: Performed By: #### U AX, MG, RENP, URI, URTPRT, UMICAO, CBC ####[address] , [place] 7895383 Lab Director: Eder Herrera MD#### PTHNCA ####[address] [phone] Lab Director: Jimenez Pruett MD Glucose Ql (U) Negative Normal NEG [facility] Comment on above: Performed By: #### U AX, MG, RENP, URI, URTPRT, UMICAO, CBC ####[address] , [place] 1173783 Lab Director: Eder Herrera MD#### PTHNCA ####[address] 8[address]19[address] Lab Director: Jimenez Pruett MD Ketones Ql (U) Negative Normal NEG [facility] Comment on above: Performed By: #### U AX, MG, RENP, URI, URTPRT, UMICAO, CBC ####[facility] , [place] 1215883 Lab Director: Eder Herrera MD#### PTHNCA ####[address] [phone] Lab Director: Jimenez Pruett MD Leukocyte esterase Test strip Ql (U) Negative Normal NEG [facility] Comment on above: Performed By: #### U AX, MG, RENP, URI, URTPRT, UMICAO, CBC ####[address] [place], [place] [address])[phone] Director: Eder Herrera MD#### PTHNCA ####[address] [address] Lab Director: Jimenez Pruett MD Nitrite,Ur Negative Normal NEG [facility] Comment on above: Performed By: #### U AX, MG, RENP, URI, URTPRT, UMICAO, CBC ####[address] [place], [place] [address])[phone] Director: Eder Herrera MD#### PTHNCA ####[address] [address] Lab Director: Jimenez Pruett MD PH,Ur 6.0 Normal 5.0-9.0 [facility] Comment on above: Performed By: #### U AX, MG, RENP, URI, URTPRT, UMICAO, CBC ####[address] [place] 353[address]83 Lab Director: Eder Herrera MD#### PTHNCA ####[address] [address] Lab Director: Jimenez Pruett MD Protein Ql (U) Negative Normal NEG [facility] Comment on above: Performed By: #### U AX, MG, RENP, URI, URTPRT, UMICAO, CBC ####[address] [place], [place] 9329883 Lab Director: Eder Herrera MD#### PTHNCA ####[address] [place] [address] Lab Director: Jimenez Pruett MD Spec. Purdy,Ur 1.010 Normal 1.010-1.020 [facility] Comment on above: Performed By: #### U AX, MG, RENP, URI, URTPRT, UMICAO, CBC ####[address] [place], [place] 0518483 Lab Director: Eder Herrera MD#### PTHNCA ####[address] [place], [place] 5753108 Lab Director: Jimenez Pruett MD Urobilinogen,Ur Normal Normal 0.0-1.0 [facility] Comment on above: Performed By: #### U AX, MG, RENP, URI, URTPRT, UMICAO, CBC ####[address] [place], [place] 9991483 lab Director: Eder Herrera MD#### PTHNCA ####[address] [address] Lab Director: Jimenez Pruett MD Uric Acidon 06-27-2024 Urate [Mass/Vol] 7.0 mg/dL 3.4 - 7.0 mg/dL [facility] Urate [Mass/Vol] 7.0 mg/dL Normal 3.4-7.0 [facility] Comment on above: Performed By: #### U AX, MG, RENP, URI, URTPRT, UMICAO, CBC ####[address] [place] 353[address]83 lab Director: Eder Herrera MD#### PTHNCA ####[address] [place] [address] Lab Director: Jimenez Pruett MD Urinalysis with Reflex to Cu ltureon 06-27-2024 Bilirubin Ql (U) Negative NEGATIVE [facility] Clarity (U) Clear Clear [facility] Color (U) Yellow Yellow [facility] Glucose Test strip (U) [Mass/Vol] Negative NEGATIVE mg/dL [facility] Hemoglobin Auto test strip Ql (U) Negative NEGATIVE [facility] Ketones (U) [Mass/Vol] Negative NEGAT PAO mg/dL [facility] Leukocyte esterase Test strip Ql (U) Negative NEGATIVE [facility] Nitrite Ql (U) Negative NEGATIVE [facility] pH (U) 6.0 [pH] 5.0 - 9.0 [facility] Protein (U) [Mass/Vol] Negative NEGAT PAO mg/dL [facility] Specific gravity (U) [Rel density] 1.010 1.010 - 1.020 [facility] Urobilinogen Qn (U) Normal 0.0 - 1. 0 EU/dL [facility] Urinalysis,Microon 5 Epithelial cells LM Ql (Urine sed) 2 TO 5 Normal 0-5 [facility] Comment on above: Performed By: #### U AX, MG, RENP, URI, URTPRT, UMICAO, CBC ####[facility] [place] [address] Lab Director: Eder Herrera MD#### PTHNCA ####[address] [phone] Lab Director: Jimenez Pruett MD Urine RBC's None Normal 0-2 [facility] Comment on above: Performed By: #### U AX, MG, RENP, URI, URTPRT, UMICAO, CBC ####[facility] [place] [address] Lab Director: Eder Herrera MD#### PTHNCA ####[address] [place], [place] 6927008 Lab Director: Jimenez Pruett MD Urine WBC's 0 TO 2 Normal 0-5 [facility] Comment on above: Performed By: #### U AX, MG, RENP, URI, URTPRT, UMICAO, CBC ####[facility] [place], [place] 2192383 Lab Director: Eder Herrera MD#### PTHNCA ####[facility] [place], [place] 4374808 lab Director: Jimenez Pruett MD Microscopic Urinalysison Epithelial cells LM.HPF (Urine sed) [#/Area] 0 TO 2 [facility] RBC LM.HPF (Urine sed) [#/Area] None [facility] WBC LM.HPF (Urine sed) [#/Area] None [facility] Protein / creatinine ratio, urineon 05-13-2024 Creatinine (U) [Mass/Vol] 78.0 mg/dL 39.0 - 259.0 mg/dL [facility] Protein (U) [Mass/Vol] mg/dL mg/dL [place] n [facility] Comment on above: No normal range esta blished. Urine Total Protein Creatinine Ratio Can not be calculated 0.00 - 0.20 [facility] Protein,Tot,Maxie Uron 2023 Creatinine [Mass/Vol] 78.0 mg/dL Normal 39.0-259.0 [facility] Comment on above: Performed By: #### U RTPRT, [facility], UAX ####[address] , [place] 0999183 Lab Director: Eder Herrera MD Tot Prot. Conc. <6 Normal [facility] Comment on above: Result Comment: No n ormal range established. Performed By: #### U RTPRT, [facility], UAX ####[facility] [place], [place] 0448383 Lab Director: Eder Herrera MD TP/Cre Ratio Can not be calculated Normal 0.00-0.20 [facility] Comment on above: Performed By: #### U RTPRT, UMICAO, UAX ####[address] [place] [address] Lab Director: Eder Herrera MD UA w/Reflex Cultureon 2023 Bilirubin, SemiQt,Ur Negative Normal NEG [facility] Comment on above: Performed By: #### U RTPRT, UMICAO, UAX ####[address] [place] [address] Lab Director: Eder Herrera MD Blood, Urine Negative Normal NEG [facility] Comment on above: Performed By: #### U RTPRT, UMICAO, UAX ####[address] , [place] 1951883 Lab Director: Eder Herrera MD Clarity (U) Clear Normal CLEAR [facility] Comment on above: Performed By: #### U RTPRT, UMICAO, UAX ####[address] , [place] [id number] Lab Director: Eder Herrera MD Color (U) Yellow Normal YEL [facility] Comment on above: Performed By: #### U RTPRT, UMICAO, UAX ####[address] [place] [address] Lab Director: Eder Herrera MD Glucose Ql (U) 3+ mg/dL Abnormal NEG [facility] in Hospital Comment on above: Performed By: #### U RTPRT, UMICAO, UAX ####[address] , [place] [id number] Lab Director: Eder Herrera MD Ketones Ql (U) Negative Normal NEG [facility] in Hospital Comment on above: Performed By: #### U RTPRT, UMICAO, UAX ####[address] , [place] [id number] Lab Director: Eder Herrera MD Leukocyte esterase Test strip Ql (U) Negative Normal NEG [facility] Comment on above: Performed By: #### U RTPRT, UMICAO, UAX ####[address] , [place] [id number] lab Director: Eder Herrera MD Nitrite,Ur Negative Normal NEG [facility] Comment on above: Performed By: #### U [facility]T, [facility], [facility] ####[address] , [place] [id number] lab Director: Eder Herrera MD PH,Ur 6.0 Normal 5.0-9.0 [facility] Comment on above: Performed By: #### U RTPRT, [facility], [facility] ####[address] , [place] [id number] lab Director: Eder Herrera MD Protein Ql (U) Negative Normal NEG [facility] Comment on above: Performed By: #### U RTPRT, [facility], [facility] ####[address] [place] [address] lab Director: Eder Herrera MD Spec. Purdy,Ur 1.010 Normal 1.010-1.020 [facility] Comment on above: Performed By: #### U RTPRT, UMICAO, UAX ####[address] [place] [address] lab Director: Eder Herrera MD Urobilinogen,Ur Normal Normal 0.0-1.0 [facility] Comment on above: Performed By: #### U RTPRT, [facility], [facility] ####[address] [place] [address] lab Director: Eder Herrera MD Urinalysis with Reflex to Cu ltureon 05-13-2024 Bilirubin Ql (U) Negative NEGATIVE [facility] Glucose Test strip (U) [Mass/Vol] 3+ Abnormal NEGATIVE mg/dL [facility] Hemoglobin Auto test strip Ql (U) Negative NEGATIVE [facility] Interpretation and review of laboratory results Abnormal [facility] Ketones (U) [Mass/Vol] Negative NEGAT PAO mg/dL [facility] Nitrite Ql (U) Negative NEGATIVE [facility] pH (U) 6.0 [pH] 5.0 - 9.0 [facility] Protein (U) [Mass/Vol] Negative NEGAT PAO mg/dL [facility] Specific gravity (U) [Rel density] 1.010 1.010 - 1.020 [facility] Urobilinogen Qn (U) Normal 0.0 - 1. 0 EU/dL [facility] Urinalysis,Microon 4 Epithelial cells LM Ql (Urine sed) 0 TO 2 Normal 0-5 [facility] Comment on above: Performed By: #### U RTPRT, [facility], UAX ####[facility] , [place] [id number] lab Director: Eder Herrera MD Urine RBC's None Normal 0-2 [facility] Comment on above: Performed By: #### U RTPRT, [facility], UAX ####[facility] [place] [address] , [place] 8708783 lab Director: Eder Herrera MD Urine WBC's None Normal 0-5 [facility] Comment on above: Performed By: #### U RTPRT, [facility], UAX ####[facility] , [place] 7035683 lab Director: Eder Herrera MD CBCon 05-11-2024 Erythrocyte distribution width (RBC) [Ratio] 12.4 % Normal 11.8-14.4 [facility] Comment on above: Performed By: #### M G, RENP, URI, CBC ####[address] [place], [place] 6927883 Lab Director: Eder Herrera MD#### PTHNCA ####[address] [phone] Lab Director: Jimenez Pruett MD Hematocrit (Bld) [Volume fraction] 39.9 % Low 40.7-50.3 [facility] Comment on above: Performed By: #### VALARIE Foster URI, CBC ####[address] [place], [place] 7482883 Lab Director: Eder Herrera MD#### PTHNCA ####[address] [address] Lab Director: Jimenez Pruett MD Hemoglobin (Bld) [Mass/Vol] 13.6 g/dL Normal 13.0-17.0 [facility] Comment on above: Performed By: #### VALARIE Foster URI, CBC ####[address] [place], [place] 9139183 Lab Director: Eder Herrera MD#### PTHNCA ####[address] [address] Lab Director: Jimenez Pruett MD MCH (RBC) [Entitic mass] 29.6 pg Normal 25.2-33.5 [facility] Comment on above: Performed By: #### VALARIE Foster URI, CBC ####[address] [place], [place] 6413583 Lab Director: Eder Herrera MD#### PTHNCA ####[address] [place], [place] 7775208 Lab Director: Jimenez Pruett MD MCHC (RBC) [Mass/Vol] 34.1 g/dL Normal 28.4-34.8 [facility] Comment on above: Performed By: #### VALARIE Foster URI, CBC ####[address] [place] [address]1283[facility])[phone] Director: Eder Herrera MD#### PTHNCA ####[address] [phone] Director: Jimenez Pruett MD MCV (RBC) [Entitic vol] 86.7 fL Normal 82.6-102.9 [facility] Comment on above: Performed By: #### VALARIE Foster URI, CBC ####[address] [place] [phone])[phone] Director: Eder Herrera MD#### PTHNCA ####[place], [place] [phone] Director: Jimenez Pruett MD Platelet mean volume (Bld) [Entitic vol] 12.0 fL Normal 8.1-13.5 [facility] Comment on above: Performed By: #### VALARIE Foster URI, CBC ####[address] [place] 3531283 Lab Director: Eder Herrera MD#### PTHNCA ####[place], [place] [phone] Director: Jimenez Pruett MD Platelets (Bld) [#/Vol] 272 10*3/uL Normal 138-453 [facility] Comment on above: Performed By: #### VALARIE Foster URI, CBC ####[address] [place] 3531248 Lab Director: Eder Herrera MD#### PTHNCA ####[address] [phone] Director: Jimenez Pruett MD RBC (Bld) [#/Vol] 4.60 10*6/uL Normal 4.21-5.77 [facility] Comment on above: Performed By: #### VALARIE Foster URI, CBC ####[address] [place], [place] 3742083 Lab Director: Eder Herrera MD#### PTHNCA ####[address] [place], [place] 3211808 Lab Director: Jimenez Pruett MD Interpretation and review of laboratory results Abnormal [facility] Nucleated RBC/100 WBC (Bld) [Ratio] 0.0 % 0.0 per 100 WBC [facility] WBC other (Bld) [#/Vol] 6.4 B on [facility] NRBC Automated 0.0 per 100 WBC Normal 0.0 [facility] Comment on above: Performed By: #### VALARIE Foster URI, CBC ####[address] [place], [place] 8453183 Lab Director: Eder Herrera MD#### PTHNCA ####[address] [place] [address] Lab Director: Jimenez Pruett MD WBC (Bld) [#/Vol] 6.4 10*3/uL Normal 3.5-11.3 [facility] Comment on above: Performed By: #### VALARIE Foster URI, CBC ####[address] [place], [place] 7901483 Lab Director: Eder Herrera MD#### PTHNCA ####[facility] [place], [place] 8590608 Lab Director: Jimenez Pruett MD Magnesiumon 05-11-2024 Magnesium [Mass/Vol] 1.8 mg/dL 1.6 - 2 .4 mg/dL [facility] Magnesium [Mass/Vol] 1.8 mg/dL Normal 1.6-2.4 [facility] Comment on above: Performed By: #### VALARIE Foster URI, CBC ####[facility] [place] [address] lab Director: Eder Herrera MD#### PTHNCA ####[facility] [id number] [place], [place] 5675208 Lab Director: Jimenez Pruett MD No Panel Informationon 05-11 Interpretation and review of laboratory results Abnormal [facility] PTH, Intacton 05-11-2024 Interpretation and review of laboratory results Abnormal [facility] Parathyrin.intact [Mass/Vol] 164.0 pg/mL High 15 - 65 pg/mL [facility] PTH, Intact 164.0 pg/mL High 15-65 [facility] Comment on above: Performed By: #### VALARIE Foster URI, CBC ####[facility] [place] [address] lab Director: Eder Herrera MD#### PTHNCA ####[facility] [id number] [place], [place] 1543608 lab Director: Jimenez Pruett MD Renal Function Panelon 05-11 Albumin [Mass/Vol] 4.1 g/dL 3.5 - 5.2 g/dL [facility] Anion gap [Moles/Vol] 17 mmol/L High 9 - 16 mmol/L [facility] Calcium [Mass/Vol] 8.8 mg/dL 8.6 - 10. 4 mg/dL [facility] Chloride [Moles/Vol] 89 mmol/L Low 98 - 10 7 mmol/L [facility] CO2 [Moles/Vol] 30 mmol/L 20 - 31 mmol/L [facility] Creatinine [Mass/Vol] 2.7 mg/dL High 0.70 - 1.20 mg/dL [facility] Est, Glom Filt Rate 26 Low - PINF [facility] Comment on above: These results are not [...] 216 mg/dL High 74 - 99 mg/dL [facility] Phosphate [Mass/Vol] 2.4 mg/dL Low 2.5 - 4 .5 mg/dL [facility] Potassium [Moles/Vol] 2.8 mmol/L Critically low 3.7 - 5.3 mmol/L [facility] Sodium [Moles/Vol] 136 mmol/L 136 - 145 mmol/L [facility] Urea nitrogen [Mass/Vol] 86 mg/dL High 8 - 23 mg/dL [facility] Urea nitrogen/Creatinine [Mass ratio] 32 mg/mg High 9 - 20 [facility] Albumin [Mass/Vol] 4.1 g/dL Normal 3.5-5.2 [facility] Comment on above: Performed By: #### VALARIE Foster URI, CBC ####[address] [place] [phone] Lab Director: Eder Herrera MD#### PTHNCA ####[address] [place], [place] 0910008 Lab Director: Jimenez Pruett MD Anion gap [Moles/Vol] 17 mmol/L High 9-16 [facility] Comment on above: Performed By: #### VALARIE Foster URI, CBC ####[address] [place] 7836183 Lab Director: Eder Herrera MD#### PTHNCA ####[address] [place], [place] 7113508 Lab Director: Jimenez Pruett MD BUN/CRE Ratio 32 High 9-20 [facility] Comment on above: Performed By: #### VALARIE Foster URI, CBC ####[address] [place] [address]([facility])[phone] Director: Eder Herrera MD#### PTHNCA ####[address] [address])[phone] Director: Jimenez Pruett MD Calcium [Mass/Vol] 8.8 mg/dL Normal 8.6-10.4 [facility] Comment on above: Performed By: #### VALARIE Foster URI, CBC ####[address] [place] [address]([facility])[phone] Director: Eder Herrera MD#### PTHNCA ####[address] [address])[phone] Director: Jimenez Pruett MD Chloride [Moles/Vol] 89 mmol/L Low 98-107 [facility] Comment on above: Performed By: #### VALARIE Foster URI, CBC ####[address] [place] [address]([facility])[phone] Director: Eder Herrera MD#### PTHNCA ####[address] [address])[phone] Director: Jimenez Pruett MD CO2 [Moles/Vol] 30 mmol/L Normal 20-31 [facility] Comment on above: Performed By: #### VALARIE Foster URI, CBC ####[address] [place] [address]([facility])[phone] Director: Eder Herrera MD#### PTHNCA ####[address] [place] [address] Lab Director: Jimenez Pruett MD Creatinine [Mass/Vol] 2.7 mg/dL High 0.70-1.20 [facility] Comment on above: Performed By: #### M VALARIE Saha URI, CBC ####[address] [place], [place] 6576883 Lab Director: Eder Herrera MD#### PTHNCA ####[address] [place] [address] Lab Director: Jimenez Pruett MD GFR/1.73 sq M.predicted among non-blacks MDRD (S/P/Bld) [Vol rate/Area] 26 mL/min/{1.73_m2} Low >60 [facility] Comment on above: Result Comment: Thes e [...] Performed By: #### VALARIE Foster URI, CBC ####[address] [place] [address] Lab Director: Eder Herrera MD#### PTHNCA ####[facility] [place] [address] Lab Director: Jimenez Pruett MD Glucose [Mass/Vol] 216 mg/dL High 74-99 [facility] Comment on above: Performed By: #### M VALARIE Saha URI, CBC ####[address] [place] [address] Lab Director: Eder Herrera MD#### PTHNCA ####[facility] [place], [place] [phone] Director: Jimenez Pruett MD Phosphorus, Inorg. 2.4 mg/dL Low 2.5-4.5 [facility] Comment on above: Performed By: #### M G RENP, URI, CBC ####[address] [place] [address]([facility])[phone] Director: Eder Herrera MD#### PTHNCA ####[address] [place] [address] Lab Director: Jimenez Pruett MD Potassium [Moles/Vol] 2.8 mmol/L Critically low 3.7-5.3 [facility] Comment on above: Performed By: #### M MIK SahaP URI, CBC ####[address] [place] [address]([facility])[phone] Director: Eder Herrera MD#### PTHNCA ####[address] [address])[phone] Director: Jimenez Pruett MD Sodium [Moles/Vol] 136 mmol/L Normal 136-145 [facility] Comment on above: Performed By: #### MIK FosterP URI, CBC ####[address] [place], [place] 9824783 Lab Director: Eder Herrera MD#### PTHNCA ####[address] [address] Lab Director: Jimenez Pruett MD Urea nitrogen [Mass/Vol] 86 mg/dL High 8-23 [facility] Comment on above: Performed By: #### M MIK SahaP URI, CBC ####[address] [place], [place] 6515583 Lab Director: Eder Herrera MD#### PTHNCA ####[facility] [place], [place] [phone])[phone] Director: Jimenez Pruett MD Uric Acidon 05-11-2024 Urate [Mass/Vol] 13.2 mg/dL High 3.4 - 7.0 mg/dL [facility] Urate [Mass/Vol] 13.2 mg/dL High 3.4-7.0 [facility] Comment on above: Performed By: #### M G, RENP, URI, CBC ####[facility] , [place] [phone] Lab Director: Eder Herrera MD#### PTHNCA ####[facility] [id number] [place] [address] Lab Director: Jimenez Pruett MD PTH, Intacton 05-08-2024 PTH, Intact 166.0 pg/mL High [facility] Comment on above: Performed By: #### I NPTH ####[facility] [place] [address] Lab Director: Jimenez Pruett MD#### MG, CBC, BMP, BNP, RICHAR ####[facility] [place] [address] Lab Director: Eedr Herrera MD Basic Metabolic Panel 04-24 Anion gap [Moles/Vol] 15 mmol/L 9 - 16 mmol/L [facility] Calcium [Mass/Vol] 9.6 mg/dL 8.6 - 10. 4 mg/dL [facility] Chloride [Moles/Vol] 95 mmol/L Low 98 - 10 7 mmol/L [facility] CO2 [Moles/Vol] 29 mmol/L 20 - 31 mmol/L [facility] Creatinine [Mass/Vol] 2.1 mg/dL High 0.70 - 1.20 mg/dL [facility] Est, Glom Filt Rate 34 Low - PINF [facility] Comment on above: These results are not [...] 150 mg/dL High 74 - 99 mg/dL [facility] Potassium [Moles/Vol] 3.4 mmol/L Low 3.7 - 5.3 mmol/L [facility] Sodium [Moles/Vol] 139 mmol/L 136 - 145 mmol/L [facility] Urea nitrogen [Mass/Vol] 62 mg/dL High 8 - 23 mg/dL [facility] Urea nitrogen/Creatinine [Mass ratio] 30 mg/mg High 9 - 20 [facility] Basic Metabolic Profon 05-06 Anion gap [Moles/Vol] 15 mmol/L Normal -16 [facility] Comment on above: Performed By: #### I NPTH ####[place] [address] Lab Director: Jimenez Pruett MD#### MG, CBC, BMP, BNP, RICHAR ####[address] [place] [address] Lab Director: Eder Herrera MD BUN/CRE Ratio 30 High - [facility] Comment on above: Performed By: #### I NPTH ####[address] [phone] Lab Director: Jimenez Pruett MD#### MG, CBC, BMP, BNP, RICHAR ####[address] [place] [phone] Lab Director: Eder Herrera MD Calcium [Mass/Vol] 9.6 mg/dL Normal 8.6-10.4 [facility] Comment on above: Performed By: #### I NPTH ####[address] [place] [address] Lab Director: Jimenez Pruett MD#### MG, CBC, BMP, BNP, RICHAR ####[address] [place], [place] 2536783 Lab Director: Eder Herrera MD Chloride [Moles/Vol] 95 mmol/L Low 98-107 [facility] Comment on above: Performed By: #### I NPTH ####[address] [place] [address] Lab Director: Jimenez Pruett MD#### MG, CBC, BMP, BNP, RICHAR ####[address] [place], [place] 7639883 Lab Director: Eder Herrera MD CO2 [Moles/Vol] 29 mmol/L Normal 20-31 [facility] Comment on above: Performed By: #### I NPTH ####[address] [address] Lab Director: Jimenez Pruett MD#### MG, CBC, BMP, BNP, RICHAR ####[address] [place], [place] 9815883 Lab Director: Eder Herrera MD Creatinine [Mass/Vol] 2.1 mg/dL High 0.70-1.20 [facility] Comment on above: Performed By: #### I NPTH ####[address] [phone] Lab Director: Jimenez Pruett MD#### MG, CBC, BMP, BNP, RICHAR ####[address] [place], [place] 4440183 Lab Director: Eder Herrera MD GFR/1.73 sq M.predicted among non-blacks MDRD (S/P/Bld) [Vol rate/Area] 34 mL/min/{1.73_m2} Low >60 [facility] Comment on above: Result Comment: Thes e [...] tubular secretion. Performed By: #### I NPTH ####[address] [address] Lab Director: Jimenez Pruett MD#### MG, CBC, BMP, BNP, RICHAR ####[address] [place], [place] 105[address]83 Lab Director: Eder Herrera MD Glucose [Mass/Vol] 150 mg/dL High 74-99 [facility] Comment on above: Performed By: #### I NPTH ####[address] [address] Lab Director: Jimenez Pruett MD#### MG, CBC, BMP, BNP, RICHAR ####[address] [place], [place] 417[address]83 Lab Director: Eder Herrera MD Potassium [Moles/Vol] 3.4 mmol/L Low 3.7-5.3 [facility] Comment on above: Performed By: #### I NPTH ####[address] [address] Lab Director: Jimenez Pruett MD#### MG, CBC, BMP, BNP, RICHAR ####[address] [place], [place] 7335483 Lab Director: Eder Herrera MD Sodium [Moles/Vol] 139 mmol/L Normal 136-145 [facility] Comment on above: Performed By: #### I NPTH ####[address] [address] Lab Director: Jimenez Pruett MD#### MG, CBC, BMP, BNP, RICHAR ####[address] [place] [address]83 [facility] Director: Eder Herrera MD Urea nitrogen [Mass/Vol] 62 mg/dL High 8-23 [facility] Comment on above: Performed By: #### I NPTH ####[address] [place] [address] Lab Director: Jimenez Pruett MD#### MG, CBC, BMP, BNP, RICHAR ####[address] [place] 353[address]83 lab Director: Eder Herrera MD Brain Natri. Peptideon 05-06 Natriuretic peptide B (Bld) [Mass/Vol] 337 pg/mL High 0-125 [facility] Comment on above: Performed By: #### I NPTH ####[address] [place] [address] Lab Director: Jimenez Pruett MD#### MG, CBC, BMP, BNP, RICHAR ####[address] [place], [place] 3640883 lab Director: Eder Herrera MD Brain Natriuretic Peptideon 05-06-2024 Natriuretic peptide B (Bld) [Mass/Vol] 337 pg/mL High 0 - 125 pg/mL [facility] CBCon 05-06-2024 Erythrocyte distribution width (RBC) [Ratio] 12.5 % 11.8 - 14.4 % [facility] Hematocrit (Bld) [Volume fraction] 41.4 % 40.7 - 50.3 % [facility] Hemoglobin (Bld) [Mass/Vol] 13.6 g/dL 13.0 - 17.0 g/dL [facility] MCH (RBC) [Entitic mass] 29.4 pg 25.2 - 33.5 pg [facility] MCHC (RBC) [Mass/Vol] 32.9 g/dL 28.4 - 34.8 g/dL [facility] MCV (RBC) [Entitic vol] 89.6 fL 82.6 - 102.9 fL [facility] Nucleated RBC/100 WBC (Bld) [Ratio] 0.0 % 0.0 per 100 WBC [facility] Platelet mean volume (Bld) [Entitic vol] 11.6 fL 8.1 - 13.5 fL [facility] Platelets (Bld) [#/Vol] 283 10*3/uL [facility] RBC (Bld) [#/Vol] 4.62 10*6/uL 4.21 - 5.7 7 m/uL [facility] WBC other (Bld) [#/Vol] 7.3 B on [facility] Erythrocyte distribution width (RBC) [Ratio] 12.5 % Normal 11.8-14.4 [facility] Comment on above: Performed By: #### I NPTH ####[address] [address] Lab Director: Jimenez Pruett MD#### MG, CBC, BMP, BNP, RICHAR ####[address] [place] 7836183 Lab Director: Eder Herrera MD Hematocrit (Bld) [Volume fraction] 41.4 % Normal 40.7-50.3 [facility] Comment on above: Performed By: #### I NPTH ####[address] [address] Lab Director: Jimenez Pruett MD#### MG, CBC, BMP, BNP, RICHAR ####[address] [place] 7836183 Lab Director: Eder Herrera MD Hemoglobin (Bld) [Mass/Vol] 13.6 g/dL Normal 13.0-17.0 [facility] Comment on above: Performed By: #### I NPTH ####[address] [phone] Lab Director: Jimenez Pruett MD#### MG, CBC, BMP, BNP, RICHAR ####[address] [place] 3531283 Lab Director: Eder Herrera MD MCH (RBC) [Entitic mass] 29.4 pg Normal 25.2-33.5 [facility] Comment on above: Performed By: #### I NPTH ####[address] [address] Lab Director: Jimenez Pruett MD#### MG, CBC, BMP, BNP, RICHAR ####[address] [place] 3531283 lab Director: Eder Herrera MD MCHC (RBC) [Mass/Vol] 32.9 g/dL Normal 28.4-34.8 [facility] Comment on above: Performed By: #### I NPTH ####[place] [address] Lab Director: Jimenez Pruett MD#### MG, CBC, BMP, BNP, RICHAR ####[address] [place] [address] lab Director: Eder Herrera MD MCV (RBC) [Entitic vol] 89.6 fL Normal 82.6-102.9 M [facility] Comment on above: Performed By: #### I NPTH ####[place] [address] Lab Director: Jimenez Pruett MD#### MG, CBC, BMP, BNP, RICHAR ####[address] [place] [address] lab Director: Eder Herrera MD NRBC Automated 0.0 per 100 WBC Normal 0.0 [facility] Comment on above: Performed By: #### I NPTH ####[address] [address] Lab Director: Jimenez Pruett MD#### MG, CBC, BMP, BNP, RICHAR ####[address] [place], [place] 5209483 Lab Director: Eder Herrera MD Platelet mean volume (Bld) [Entitic vol] 11.6 fL Normal 8.1-13.5 [facility] Comment on above: Performed By: #### I NPTH ####[address] [place], [place] [phone] Director: Jimenez Pruett MD#### MG, CBC, BMP, BNP, RICHAR ####[address] [place], [place] 9134983 Lab Director: Eder Herrera MD Platelets (Bld) [#/Vol] 283 10*3/uL Normal 138-453 [facility] Comment on above: Performed By: #### I NPTH ####[address] [address])[phone] Director: Jimenez Pruett MD#### MG, CBC, BMP, BNP, RICHAR ####[address] [place] 3531283 Lab Director: Eder Herrera MD RBC (Bld) [#/Vol] 4.62 10*6/uL Normal 4.21-5.77 [facility] Comment on above: Performed By: #### I NPTH ####[address] [phone] Director: Jimenez Pruett MD#### MG, CBC, BMP, BNP, RICHAR ####[address] [place], [place] [address] Lab Director: Eder Herrera MD WBC (Bld) [#/Vol] 7.3 10*3/uL Normal 3.5-11.3 [facility] Comment on above: Performed By: #### I NPTH ####[address] [place], [place] [phone] Director: Jimenez Pruett MD#### MG, CBC, BMP, BNP, RICHAR ####[facility] [place] [address] lab Director: Eder Herrera MD Magnesiumon 05-06-2024 Magnesium [Mass/Vol] 1.6 mg/dL 1.6 - 2 .4 mg/dL [facility] Magnesium [Mass/Vol] 1.6 mg/dL Normal 1.6-2.4 [facility] Comment on above: Performed By: #### I NPTH ####[facility] [id number] [place] [address] Lab Director: Jimenez Pruett MD#### MG, CBC, BMP, BNP, RICHAR ####[address] [place] [address] lab Director: Eder Herrera MD No Panel Informationon 05-06 Interpretation and review of laboratory results Abnormal [facility] PTH, Intact[place] 05-06-2024 Calcium [Moles/Vol] 1.25 mmol/L Normal 1.13-1.33 [facility] Comment on above: Performed By: #### I NPTH ####[facility] [id number] [place] [address] Lab Director: Jimenez Pruett MD#### MG, CBC, BMP, BNP, RICHAR ####[address] , [place] [id number] lab Director: Eder Herrera MD Phosphoruson 05-06-2024 Phosphate [Mass/Vol] 2.1 mg/dL Low 2.5 - 4 .5 mg/dL [facility] Phosphorus, Inorg.on 024 Phosphorus, Inorg. 2.1 mg/dL Low 2.5-4.5 [facility] Comment on above: Performed By: #### I NPTH ####[facility] [address] [place], [place] [id number] Lab Director: Jimenez Pruett MD#### MG, CBC, BMP, BNP, RICHAR ####[facility] [place] [address] Lab Director: Eder Herrera MD Vascular duplex lower extrem ity arteries bilateralOrdered By: Saadia Donovan on 04-26-2024 Left ANTONELLA mid PSV 0.0 cm/s [facility] [employer] Work Phone: Left HEAT TRANSFER TECHNICIAN dist PSV 176.3 cm/s [facility] [employer] [facility] Phone: Left peroneal mid PSV 104.8 cm/s Bon [employer] Phone: Left PFA prox PSV 148.4 cm/s [facility] [employer] [facility] Phone: Left Pop A dist PSV 97.0 cm/s Bon [facility] [employer] Work Phone: Left Pop A prox PSV 101.0 cm/s Bon [facility] [employer] Phone: Left Pop A prox karon ratio 1.38 [facility] Phone: Left DANCE MASTER mid PSV 116.6 cm/s [facility] [employer] Phone: Left SFA dist PSV 73.4 cm/s [facility] [employer] [facility] Phone: Left SFA dist karon ratio 0.45 B on [facility] Phone: Left SFA mid PSV 162.3 cm/s [facility] [employer] Work Phone: Left SFA mid karon ratio 0.98 [facility] Phone: Left SFA prox PSV 165.2 cm/s [facility] [employer] [facility] Phone: Left SFA prox karon ratio 0.94 B on [facility] Phone: Right ANTONELLA mid PSV 39.8 cm/s [facility] [employer] [facility] Phone: Right HEAT TRANSFER TECHNICIAN dist PSV 151.6 cm/s [facility] [employer] Work Phone: Right HEAT TRANSFER TECHNICIAN prox PSV 94.1 cm/s [facility] [employer] Work Phone: Right peronal mid PSV 176.3 cm/s Bon [employer] Work Phone: Right Pop A dist PSV 170.2 cm/s [facility] [employer] Work Phone: Right Pop A prox PSV 116.8 cm/s [facility] [employer] Work Phone: Right Pop A prox karon ratio 0.86 [facility] [employer] Work Phone: Right DANCE MASTER mid PSV 33.3 cm/s [facility] [employer] Work Phone: Right SFA dist PSV 135.3 cm/s [facility] [employer] Work Phone: Right SFA dist karon ratio 1.39 [facility] [employer] Work Phone: Right SFA mid PSV 97.0 cm/s [facility] [employer] Work Phone: Right SFA mid karon ratio 0.7 B on [employer] Phone: Right SFA prox PSV 144.4 cm/s [facility] [employer] Work Phone: Right SFA prox karon ratio 1.0 [facility] [employer] Work Phone: [facility] [employer] Work Phone: Vascular duplex lower extrem ity [...] Artery: Patent and multiphasic (normal) Doppler waveforms. [facility] CV CPACS Vascular duplex lower extrem ity arteries bilateralon 04-25-2024 Radiology Study observation (narrative) [facility] CBCon 04-01-2024 Erythrocyte distribution width (RBC) [Ratio] 12.9 % 11.8 - 14.4 % [facility] Hematocrit (Bld) [Volume fraction] 41.9 % 40.7 - 50.3 % [facility] Hemoglobin (Bld) [Mass/Vol] 13.7 g/dL 13.0 - 17.0 g/dL [facility] MCH (RBC) [Entitic mass] 29.3 pg 25.2 - 33.5 pg [facility] MCHC (RBC) [Mass/Vol] 32.7 g/dL 28.4 - 34.8 g/dL [facility] MCV (RBC) [Entitic vol] 89.7 fL 82.6 - 102.9 fL [facility] Nucleated RBC/100 WBC (Bld) [Ratio] 0.0 % 0.0 per 100 WBC [facility] Platelet mean volume (Bld) [Entitic vol] 11.2 fL 8.1 - 13.5 fL [facility] Platelets (Bld) [#/Vol] 243 10*3/uL [facility] RBC (Bld) [#/Vol] 4.67 10*6/uL 4.21 - 5.7 7 m/uL [facility] WBC other (Bld) [#/Vol] 6.0 B on [facility] Erythrocyte distribution width (RBC) [Ratio] 12.9 % Normal 11.8-14.4 [facility] Comment on above: Performed By: #### P THNCA ####[address] [address] Lab Director: Jimenez Pruett MD#### URI, MG, RENP, CBC ####[address] [place] [id number] [facility] Director: Eder Herrera MD Hematocrit (Bld) [Volume fraction] 41.9 % Normal 40.7-50.3 [facility] Comment on above: Performed By: #### P THNCA ####[address] [address] Lab Director: Jimenez Pruett MD#### URI, MG, RENP, CBC ####[address] [place] [phone] Lab Director: Eder Herrera MD Hemoglobin (Bld) [Mass/Vol] 13.7 g/dL Normal 13.0-17.0 [facility] Comment on above: Performed By: #### P THNCA ####[address] [id number] Lab Director: Jimenez Pruett MD#### URI, MG, RENP, CBC ####[address] [place] [phone] Lab Director: Eder Herrera MD MCH (RBC) [Entitic mass] 29.3 pg Normal 25.2-33.5 [facility] Comment on above: Performed By: #### P THNCA ####[address] [address] Lab Director: Jimenez Pruett MD#### URI, MG, RENP, CBC ####[address] [place] [phone] lab Director: Eder Herrera MD MCHC (RBC) [Mass/Vol] 32.7 g/dL Normal 28.4-34.8 [facility] Comment on above: Performed By: #### P THNCA ####[address] [address] Lab Director: Jimenez Pruett MD#### URI, MG, RENP, CBC ####[address] [place] [phone] Lab Director: Eder Herrera MD MCV (RBC) [Entitic vol] 89.7 fL Normal 82.6-102.9 M [facility] Comment on above: Performed By: #### P THNCA ####[address] [address] Lab Director: Jimenez Pruett MD#### URI, MG, RENP, CBC ####[address] [place] [id number] Lab Director: Eder Herrera MD NRBC Automated 0.0 per 100 WBC Normal 0.0 [facility] Comment on above: Performed By: #### P THNCA ####[address] [address] Lab Director: Jimenez Pruett MD#### URI, MG, RENP, CBC ####[address] [place], [place] [id number] Lab Director: Eder Herrera MD Platelet mean volume (Bld) [Entitic vol] 11.2 fL Normal 8.1-13.5 [facility] Comment on above: Performed By: #### P THNCA ####[place] [address] [place], [place] [phone] Director: Jimenez Pruett MD#### URI, MG, RENP, CBC ####[address] [place], [place] [phone] Lab Director: Eder Herrera MD Platelets (Bld) [#/Vol] 243 10*3/uL Normal 138-453 [facility] Comment on above: Performed By: #### P THNCA ####[address] [phone] Director: Jimenez Pruett MD#### URI, MG, RENP, CBC ####[address] [place] [address] Lab Director: Eder Herrera MD RBC (Bld) [#/Vol] 4.67 10*6/uL Normal 4.21-5.77 [facility] Comment on above: Performed By: #### P THNCA ####[place] [address] [place], [place] [phone] Director: Jimenez Pruett MD#### URI, MG, RENP, CBC ####[address] [place], [place] [phone] Lab Director: Eder Herrera MD WBC (Bld) [#/Vol] 6.0 10*3/uL Normal 3.5-11.3 [facility] Comment on above: Performed By: #### P THNCA ####[place] [address] [place], [place] [phone] Director: Jimenez Pruett MD#### URI, MG, RENP, CBC ####[facility] [place] [address] Lab Director: Eder Herrera MD Magnesiumon 04-01-2024 Magnesium [Mass/Vol] 1.6 mg/dL 1.6 - 2 .4 mg/dL [facility] Magnesium [Mass/Vol] 1.6 mg/dL Normal 1.6-2.4 [facility] Comment on above: Performed By: #### P THNCA ####[facility] [place], [place] [address]384[address] Lab Director: Jimenez Pruett MD#### URI, MG, RENP, CBC ####[facility] [place] [address] Lab Director: Eder Herrera MD No Panel Informationon 04-01 Interpretation and review of laboratory results Abnormal [facility] PTH, [place] 04-01-2024 Interpretation and review of laboratory results Abnormal [facility] Parathyrin.intact [Mass/Vol] 206.0 pg/mL High 15 - 65 pg/mL [facility] PTH, Intact 206.0 pg/mL High 15-65 [facility] Comment on above: Performed By: #### P THNCA ####[place] [address] [place] [address] Lab Director: Jimenez Pruett MD#### URI, MG, RENP, CBC ####[facility] [place] [address] Lab Director: Eder Herrera MD Renal Function Panelon 04-01 Albumin [Mass/Vol] 4.2 g/dL 3.5 - 5.2 g/dL [facility] Anion gap [Moles/Vol] 11 mmol/L 9 - 16 mmol/L [facility] Calcium [Mass/Vol] 11.0 mg/dL High 8.6 - 10. 4 mg/dL [facility] Chloride [Moles/Vol] 98 mmol/L 98 - 10 7 mmol/L [facility] CO2 [Moles/Vol] 27 mmol/L 20 - 31 mmol/L [facility] Creatinine [Mass/Vol] 1.6 mg/dL High 0.70 - 1.20 mg/dL [facility] Est, [place]ob[place] Filt Rate 47 Low - PINF [facility] S [facility] Comment on above: These results are not [...] 195 mg/dL High 74 - 99 mg/dL [facility] Phosphate [Mass/Vol] 1.8 mg/dL Low 2.5 - 4 .5 mg/dL [facility] Potassium [Moles/Vol] 3.7 mmol/L 3.7 - 5.3 mmol/L [facility] Sodium [Moles/Vol] 136 mmol/L 136 - 145 mmol/L [facility] Urea nitrogen [Mass/Vol] 36 mg/dL High 8 - 23 mg/dL [facility] Urea nitrogen/Creatinine [Mass ratio] 23 mg/mg High 9 - 20 [facility] Albumin [Mass/Vol] 4.2 g/dL Normal 3.5-5.2 [facility] Comment on above: Performed By: #### P THNCA ####[facility] [address] [place] [address] Lab Director: Jimenez Pruett MD#### GEORGINA, MG, VALARIE, CBC ####[facility] [place] [address] Lab Director: Eder Herrera MD Anion gap [Moles/Vol] 11 mmol/L Normal 9-16 [facility] Comment on above: Performed By: #### P THNCA ####[address] [address] Lab Director: Jimenez Pruett MD#### URI, MG, RENP, CBC ####[address] , [place] [phone] Lab Director: Eder Herrera MD BUN/CRE Ratio 23 High 9-20 [facility] Comment on above: Performed By: #### P THNCA ####[address] [phone] Director: Jimenez Pruett MD#### URI, MG, RENP, CBC ####[address] [place] [address] Lab Director: Eder Herrera MD Calcium [Mass/Vol] 11.0 mg/dL High 8.6-10.4 [facility] Comment on above: Performed By: #### P THNCA ####[address] [address] Lab Director: Jimenez Pruett MD#### URI, MG, RENP, CBC ####[address] [place] [address] Lab Director: Eder Herrera MD Chloride [Moles/Vol] 98 mmol/L Normal 98-107 [facility] Comment on above: Performed By: #### P THNCA ####[address] [phone] Director: Jimenez Pruett MD#### URI, MG, RENP, CBC ####[address] [place], [place] [phone] Lab Director: Eder Herrera MD CO2 [Moles/Vol] 27 mmol/L Normal 20-31 [facility] Comment on above: Performed By: #### P THNCA ####[facility] [address] [place] [address] Lab Director: Jimenez Pruett MD#### URI, MG, RENP, CBC ####[address] [place], [place] [address]83 Lab Director: Eder Herrera MD Creatinine [Mass/Vol] 1.6 mg/dL High 0.70-1.20 [facility] Comment on above: Performed By: #### P THNCA ####[facility] [address] [place] [address] Lab Director: Jimenez Pruett MD#### URI, MG, RENP, CBC ####[address] [place], [place] [phone] Lab Director: Eder Herrera MD GFR/1.73 sq M.predicted among non-blacks MDRD (S/P/Bld) [Vol rate/Area] 47 mL/min/{1.73_m2} Low >60 [facility] Comment on above: Result Comment: Thes e [...] tubular secretion. Performed By: #### P THNCA ####[facility] [address] [place] [address] Lab Director: Jimenez Pruett MD#### URI, MG, RENP, CBC ####[address] [place], [place] 6[address]83 Lab Director: Eder Herrera MD Glucose [Mass/Vol] 195 mg/dL High 74-99 [facility] Comment on above: Performed By: #### P THNCA ####[place] [address] [place] [address] Lab Director: Jimenez Pruett MD#### URI, MG, RENP, CBC ####[address] [place], [place] 8[address]83 Lab Director: Eder Herrera MD Phosphorus, Inorg. 1.8 mg/dL Low 2.5-4.5 [facility] Comment on above: Performed By: #### P THNCA ####[address] [address] Lab Director: Jimenez Pruett MD#### URI, MG, RENP, CBC ####[address] [place], [place] 9973[address] Lab Director: Eder Herrera MD Potassium [Moles/Vol] 3.7 mmol/L Normal 3.7-5.3 [facility] Comment on above: Performed By: #### P THNCA ####[address] [address] Lab Director: Jimenez Pruett MD#### URI, MG, RENP, CBC ####[address] [place], [place] 1758583 Lab Director: Eder Herrera MD Sodium [Moles/Vol] 136 mmol/L Normal 136-145 [facility] Comment on above: Performed By: #### P THNCA ####[address] [address] Lab Director: Jimenez Pruett MD#### URI, MG, RENP, CBC ####[address] [place], [place] 326[address]83 Lab Director: Eder Herrera MD Urea nitrogen [Mass/Vol] 36 mg/dL High 8-23 [facility] Comment on above: Performed By: #### P THNCA ####[facility] [address] [place] [address] Lab Director: Jimenez Pruett MD#### URI, MG, RENP, CBC ####[address] [place], [place] [phone] lab Director: Eder Herrera MD Uric Acidon 04-01-2024 Urate [Mass/Vol] 7.6 mg/dL High 3.4 - 7.0 mg/dL [facility] Urate [Mass/Vol] 7.6 mg/dL High 3.4-7.0 [facility] Comment on above: Performed By: #### P THNCA ####[facility] [place] [address] lab Director: Jimenez Pruett MD#### URI, MG, RENP, CBC ####[address] [place] [address] lab Director: Eder Herrera MD Basic Metabolic Panelon 02-23 Anion gap [Moles/Vol] 9 mmol/L 9 - 16 mmol/L [facility] Calcium [Mass/Vol] 10.5 mg/dL High 8.6 - 10. 4 mg/dL [facility] Chloride [Moles/Vol] 106 mmol/L 98 - 10 7 mmol/L [facility] CO2 [Moles/Vol] 24 mmol/L 20 - 31 mmol/L [facility] Creatinine [Mass/Vol] 1.4 mg/dL High 0.70 - 1.20 mg/dL [facility] Est, Glom Filt Rate 54 Low - PINF [facility] Comment on above: These results are not [...] 106 mg/dL High 74 - 99 mg/dL [facility] Potassium [Moles/Vol] 4.9 mmol/L 3.7 - 5.3 mmol/L [facility] Comment on above: Specimen hemolysis h as exceeded the interference as defined by Cyndi. Value may be falsely increased. Suggest recollection if clinically indicated. Sodium [Moles/Vol] 139 mmol/L 136 - 145 mmol/L [facility] Urea nitrogen [Mass/Vol] 24 mg/dL High 8 - 23 mg/dL [facility] Urea nitrogen/Creatinine [Mass ratio] 17 mg/mg 9 - [facility] Basic Metabolic Profon 03-15 Anion gap [Moles/Vol] 9 mmol/L Normal - [facility] Comment on above: Performed By: #### C BC, BMP, BNP ####[address] [place] [address] Lab Director: Eder Herrera MD BUN/CRE Ratio 17 Normal - [facility] Comment on above: Performed By: #### C BC, BMP, BNP ####[address] , [place] [phone] lab Director: Eder Herrera MD Calcium [Mass/Vol] 10.5 mg/dL High 8.6-10.4 [facility] Comment on above: Performed By: #### C BC, BMP, BNP ####[address] , [place] [phone] lab Director: Eder Herrera MD Chloride [Moles/Vol] 106 mmol/L Normal 98-107 [facility] Comment on above: Performed By: #### C BC, BMP, BNP ####[address] [place] [address] lab Director: Eder Herrera MD CO2 [Moles/Vol] 24 mmol/L Normal 20- [facility] Comment on above: Performed By: #### C BC, BMP, BNP ####[address] [place], [place] [id number] lab Director: Eder Herrera MD Creatinine [Mass/Vol] 1.4 mg/dL High 0.70-1.20 [facility] Comment on above: Performed By: #### C BC, BMP, BNP ####[address] [place], [place] [id number] lab Director: Eder Herrera MD GFR/1.73 sq M.predicted among non-blacks MDRD (S/P/Bld) [Vol rate/Area] 54 mL/min/{1.73_m2} Low >60 [facility] Comment on above: Result Comment: Thes e [...] Performed By: #### C KILLIAN BMP, BNP ####[address] [place] [address] lab Director: Eder Herrera MD Glucose [Mass/Vol] 106 mg/dL High 74-99 [facility] Comment on above: Performed By: #### C BC BMP, BNP ####[address] [place], [place] [address] lab Director: Eder Herrera MD Potassium [Moles/Vol] 4.9 mmol/L Normal 3.7-5.3 [facility] Comment on above: Result Comment: Spec imen hemolysis has exceeded the interference as defined by Cyndi. Value may be falsely increased. Suggest recollection if clinically indicated. Performed By: #### C BC, BMP, BNP ####[address] [place] [address] lab Director: Eder Herrera MD Sodium [Moles/Vol] 139 mmol/L Normal 136-145 [facility] Comment on above: Performed By: #### C BC, BMP, BNP ####[facility] [place] , [place] [id number] lab Director: Eder Herrera MD Urea nitrogen [Mass/Vol] 24 mg/dL High 8-23 [facility] Comment on above: Performed By: #### C BC, BMP, BNP ####[facility] [place] , [place] [phone] lab Director: Eder Herrera MD Brain Natri. Peptideon 03-15 Natriuretic peptide B (Bld) [Mass/Vol] 422 pg/mL High 0-125 [facility] Comment on above: Performed By: #### C KILLIAN, BMP, BNP ####[address] , [place] [id number] Lab Director: Eder Herrera MD Brain Natriuretic Peptideon 03-15-2024 Natriuretic peptide B (Bld) [Mass/Vol] 422 pg/mL High 0 - 125 pg/mL [facility] CBCon 03-15-2024 Erythrocyte distribution width (RBC) [Ratio] 13.2 % 11.8 - 14.4 % [facility] Hematocrit (Bld) [Volume fraction] 41.4 % 40.7 - 50.3 % [facility] Hemoglobin (Bld) [Mass/Vol] 13.1 g/dL 13.0 - 17.0 g/dL [facility] MCH (RBC) [Entitic mass] 29.2 pg 25.2 - 33.5 pg [facility] MCHC (RBC) [Mass/Vol] 31.6 g/dL 28.4 - 34.8 g/dL [facility] MCV (RBC) [Entitic vol] 92.2 fL 82.6 - 102.9 fL [facility] Nucleated RBC/100 WBC (Bld) [Ratio] 0.0 % 0.0 per 100 WBC [facility] Platelet mean volume (Bld) [Entitic vol] 10.9 fL 8.1 - 13.5 fL [facility] Platelets (Bld) [#/Vol] 268 10*3/uL [facility] RBC (Bld) [#/Vol] 4.49 10*6/uL 4.21 - 5.7 7 m/uL [facility] WBC other (Bld) [#/Vol] 5.0 B on [facility] Erythrocyte distribution width (RBC) [Ratio] 13.2 % Normal 11.8-14.4 [facility] Comment on above: Performed By: #### C BC, BMP, BNP ####[address] [place] [address] lab Director: Eder Herrera MD Hematocrit (Bld) [Volume fraction] 41.4 % Normal 40.7-50.3 [facility] Comment on above: Performed By: #### C BC BMP, BNP ####[address] [place] [address] Lab Director: Eder Herrera MD Hemoglobin (Bld) [Mass/Vol] 13.1 g/dL Normal 13.0-17.0 [facility] Comment on above: Performed By: #### C BC, BMP, BNP ####[address] [place] [address] lab Director: Eder Herrera MD MCH (RBC) [Entitic mass] 29.2 pg Normal 25.2-33.5 [facility] Comment on above: Performed By: #### C BC, BMP, BNP ####[address] [place] [address] lab Director: Eder Herrera MD MCHC (RBC) [Mass/Vol] 31.6 g/dL Normal 28.4-34.8 [facility] Comment on above: Performed By: #### C BC, BMP, BNP ####[address] [place] [address] Lab Director: Eder Herrera MD MCV (RBC) [Entitic vol] 92.2 fL Normal 82.6-102.9 M [facility] Comment on above: Performed By: #### C BC, BMP, BNP ####[address] [place] [address] Lab Director: Eder Herrera MD NRBC Automated 0.0 per 100 WBC Normal 0.0 [facility] Comment on above: Performed By: #### C BC, BMP, BNP ####[address] [place] [address] Lab Director: Eder Herrera MD Platelet mean volume (Bld) [Entitic vol] 10.9 fL Normal 8.1-13.5 [facility] Comment on above: Performed By: #### C BC, BMP, BNP ####[address] [place] [address] Lab Director: Eder Herrera MD Platelets (Bld) [#/Vol] 268 10*3/uL Normal 138-453 [facility] Comment on above: Performed By: #### C BC, BMP, BNP ####[address] [place] [address] Lab Director: Eder Herrera MD RBC (Bld) [#/Vol] 4.49 10*6/uL Normal 4.21-5.77 [facility] Comment on above: Performed By: #### C BC, BMP, BNP ####[address] [place] [address] Lab Director: Eder Herrera MD WBC (Bld) [#/Vol] 5.0 10*3/uL Normal 3.5-11.3 [facility] Comment on above: Performed By: #### C BC, BMP, BNP ####[address] [place] [address] lab Director: Eder Herrera MD No Panel Informationon 03-15 Interpretation and review of laboratory results Abnormal [facility] Trice 03-08-2024 ACT 274 sec High 79-149 [facility] ACT 253 sec High 79-149 [facility] ACT 174 sec High 79-149 [facility] Glucose, Whole Bloodon 03-08 Glucose [Mass/Vol] 148 mg/dL High 74-100 [facility] Glucose [Mass/Vol] 138 mg/dL High 74-100 [facility] CBC with Auto Differentialon 02-28-2024 Basophils (Bld) [#/Vol] 0.04 10*3/uL [facility] Basophils/100 WBC (Bld) 1 % 0 - 2 % B ON [facility] Eosinophils (Bld) [#/Vol] 0.39 10*3/uL [facility] Eosinophils/100 WBC (Bld) 5 % High 1 - 4 % [facility] Erythrocyte distribution width (RBC) [Ratio] 12.3 % 11.8 - 14.4 % [facility] Hematocrit (Bld) [Volume fraction] 37.1 % Low 40.7 - 50.3 % [facility] Hemoglobin (Bld) [Mass/Vol] 12.7 g/dL Low 13.0 - 17.0 g/dL [facility] Immature granulocytes (Bld) [#/Vol] [facility] Immature granulocytes/100 WBC (Bld) 0 % 0 [facility] Interpretation and review of laboratory results Abnormal [facility] Lymphocytes/100 WBC (Bld) 32 % 24 - 43 % [facility] Lymphocytes/100 WBC (Bld) 2.31 % [facility] MCH (RBC) [Entitic mass] 29.5 pg 25.2 - 33.5 pg [facility] MCHC (RBC) [Mass/Vol] 34.2 g/dL 28.4 - 34.8 g/dL [facility] MCV (RBC) [Entitic vol] 86.3 fL 82.6 - 102.9 fL [facility] Monocytes/100 WBC (Bld) 10 % 3 - 12 % B ON [facility] Monocytes/100 WBC (Bld) 0.76 % [facility] Neutrophils/100 WBC (Bld) 52 % 36 - 65 % [facility] Nucleated RBC/100 WBC (Bld) [Ratio] 0.0 % 0.0 per 100 WBC [facility] Platelet mean volume (Bld) [Entitic vol] 10.9 fL 8.1 - 13.5 fL [facility] Platelets (Bld) [#/Vol] 248 10*3/uL [facility] RBC (Bld) [#/Vol] 4.30 10*6/uL 4.21 - 5.7 7 m/uL [facility] Segmented neutrophils/100 WBC (Bld) 3.78 % [facility] WBC other (Bld) [#/Vol] 7.[address] [facility] CBC with Diffon 02-28-2024 Abs. Basophil 0.04 k/uL Normal 0.00-0.20 [facility] Comment on above: Performed By: #### C CHLOÉ PECK, SUSANAE ####[address] [place] [id number] Lab Director: Eder Herrera MD Abs.Imm.Granulocyte <0.03 Normal 0.00-0.30 [facility] Comment on above: Performed By: #### C CHLOÉ PECK, DIME ####[address] [place], [place] [id number] Lab Director: Eder Herrera MD Abs.Neutrophil (Seg) 3.78 k/uL Normal 1.50-8.10 [facility] Comment on above: Performed By: #### C CHLOÉ PECK, DIME ####[address] , [place] [phone] Lab Director: Eder Herrera MD Basophils/100 WBC (Bld) 1 % Normal 0-2 M [facility] Comment on above: Performed By: #### C DP CP, DIME ####[address] [place] [address] Lab Director: Eder Herrera MD Eosinophils (Bld) [#/Vol] 0.39 10*3/uL Normal 0.00-0.44 [facility] Comment on above: Performed By: #### C DP CP, DIME ####[address] , [facility]83 Lab Director: Eder Herrera MD Eosinophils/100 WBC (Bld) 5 % High 1-4 [facility] Comment on above: Performed By: #### C CISCO CP, DIME ####[address] , [facility]83 Lab Director: Eder Herrera MD Erythrocyte distribution width (RBC) [Ratio] 12.3 % Normal 11.8-14.4 [facility] Comment on above: Performed By: #### C CISCO CP, DIME ####[address] , [place] [address] Lab Director: Eder Herrera MD Hematocrit (Bld) [Volume fraction] 37.1 % Low 40.7-50.3 [facility] Comment on above: Performed By: #### C CISCO CP, DIME ####[address] , [facility]83 Lab Director: Eder Herrera MD Hemoglobin (Bld) [Mass/Vol] 12.7 g/dL Low 13.0-17.0 [facility] Comment on above: Performed By: #### C DP CP, DIME ####[address] , [place] [address] Lab Director: Eder Herrera MD Immature granulocytes/100 WBC (Bld) 0 % Normal 0 [facility] Comment on above: Performed By: #### C DP CP, DIME ####[address] , [place] [phone] Director: Eder Herrera MD Lymphocytes (Bld) [#/Vol] 2.31 10*3/uL Normal 1.10-3.70 [facility] Comment on above: Performed By: #### C CHLOÉ PECK, DIME ####[address] , [place] [phone] Director: Eder Herrera MD Lymphocytes/100 WBC (Bld) 32 % Normal 24-43 [facility] Comment on above: Performed By: #### C CHLOÉ PECK, DIME ####[address] , [place] [phone] Director: Eder Herrera MD MCH (RBC) [Entitic mass] 29.5 pg Normal 25.2-33.5 [facility] Comment on above: Performed By: #### C CHLOÉ PECK, DIME ####[address] , [place] [address])[phone] Director: Eder Herrera MD MCHC (RBC) [Mass/Vol] 34.2 g/dL Normal 28.4-34.8 [facility] Comment on above: Performed By: #### C CHLOÉ PECK, DIME ####[address] , [place] [address])[phone] Director: Eder Herrera MD MCV (RBC) [Entitic vol] 86.3 fL Normal 82.6-102.9 M [facility] Comment on above: Performed By: #### C CHLOÉ PECK, DIME ####[address] [place] [address] Lab Director: Eder Herrera MD Monocytes (Bld) [#/Vol] 0.76 10*3/uL Normal 0.10-1.20 [facility] Comment on above: Performed By: #### C DP, CP, DIME ####[address] [place] [address] Lab Director: Eder Herrera MD Monocytes/100 WBC (Bld) 10 % Normal 3-12 [facility] Comment on above: Performed By: #### C DP, CP, DIME ####[address] , [place] [address])[phone] Director: Eder Herrera MD Neutrophil (Seg) 52 % Normal 36-65 [facility] Comment on above: Performed By: #### C DP CP, DIME ####[address] , [facility]83 Lab Director: Eder Herrera MD NRBC Automated 0.0 per 100 WBC Normal 0.0 [facility] Comment on above: Performed By: #### C DP CP, DIME ####[address] , [phone] Director: Eder Herrera MD Platelet mean volume (Bld) [Entitic vol] 10.9 fL Normal 8.1-13.5 [facility] Comment on above: Performed By: #### C DP CP, DIME ####[address] , [place] [address])[phone] Director: Eder Herrera MD Platelets (Bld) [#/Vol] 248 10*3/uL Normal 138-453 [facility] Comment on above: Performed By: #### C DP, CP, DIME ####[address] , [place] [phone] Director: Eder Herrera MD RBC (Bld) [#/Vol] 4.30 10*6/uL Normal 4.21-5.77 [facility] Comment on above: Performed By: #### C DP, CP, DIME ####[facility] [place] [address] lab Director: Eder Herrera MD WBC (Bld) [#/Vol] 7.3 10*3/uL Normal 3.5-11.3 [facility] Comment on above: Performed By: #### C DP, CHLOÉ, SUSANAE ####[facility] [place] [address] lab Director: Eder Herrera MD [facility]2024 Albumin [Mass/Vol] 3.6 g/dL 3.5 - 5.2 g/dL [facility] Albumin/Globulin [Mass ratio] 1.3 {ratio} 1.0 - 2.5 [facility] ALP [Catalytic activity/Vol] 90 U/L 40 - 129 U/L [facility] ALT [Catalytic activity/Vol] 21 U/L 10 - 50 U/L [facility] Anion gap [Moles/Vol] 13 mmol/L 9 - 16 mmol/L [facility] AST [Catalytic activity/Vol] 22 U/L 10 - 50 U/L [facility] Bilirubin [Mass/Vol] 0.3 mg/dL 0.00 - 1.20 mg/dL [facility] Calcium [Mass/Vol] 9.1 mg/dL 8.6 - 10. 4 mg/dL [facility] Chloride [Moles/Vol] 99 mmol/L 98 - 10 7 mmol/L [facility] CO2 [Moles/Vol] 23 mmol/L 20 - 31 mmol/L [facility] Creatinine [Mass/Vol] 1.8 mg/dL High 0.70 - 1.20 mg/dL [facility] Est, Glom Filt Rate 41 Low - [facility] Comment on above: These results are not [...] 118 mg/dL High 74 - 99 mg/dL [facility] Interpretation and review of laboratory results Abnormal [facility] Potassium [Moles/Vol] 4.1 mmol/L 3.7 - 5.3 mmol/L [facility] Protein [Mass/Vol] 6.2 g/dL Low 6.6 - 8.7 g/dL [facility] Sodium [Moles/Vol] 135 mmol/L Low 136 - 145 mmol/L [facility] Urea nitrogen [Mass/Vol] 55 mg/dL High 8 - 23 mg/dL [facility] Urea nitrogen/Creatinine [Mass ratio] 31 mg/mg High 9 - 20 [facility] Comp Metabolic Profon 2023 Albumin [Mass/Vol] 3.6 g/dL Normal 3.5-5.2 [facility] Comment on above: Performed By: #### C CHLOÉ PECK, DIME ####[address] , [place] [phone] Lab Director: Eder Herrera MD Albumin/Glob Ratio 1.3 Normal 1.0-2.5 [facility] Comment on above: Performed By: #### C CHLOÉ PECK, DIME ####[address] , [place] 8[address]83 Lab Director: Eder Herrera MD Alkaline Phos 90 U/L Normal 40-129 [facility] Comment on above: Performed By: #### C CHLOÉ PECK, DIME ####[facility] [place] , [place] 4[address]83 Lab Director: Eder Herrera MD ALT [Catalytic activity/Vol] 21 U/L Normal 10-50 [facility] Comment on above: Performed By: #### C CHLOÉ PECK, DIME ####[facility] [place] , [place] 55[address]83 Lab Director: Eder Herrera MD Anion gap [Moles/Vol] 13 mmol/L Normal 9-16 [facility] Comment on above: Performed By: #### C CHLOÉ PECK, DIME ####[address] [place] [address] Lab Director: Eder Herrera MD AST [Catalytic activity/Vol] 22 U/L Normal 10-50 [facility] Comment on above: Performed By: #### C CHLOÉ PECK, DIME ####[address] [place] [address] Lab Director: Eder Herrera MD Bilirubin [Mass/Vol] 0.3 mg/dL Normal 0.00-1.20 [facility] Comment on above: Performed By: #### C CHLOÉ PECK, DIME ####[address] [place] [address] Lab Director: Eder Herrera MD BUN/CRE Ratio 31 High 9-20 [facility] Comment on above: Performed By: #### C CHLOÉ PECK, DIME ####[address] [place] [address] Lab Director: Eder Herrera MD Calcium [Mass/Vol] 9.1 mg/dL Normal 8.6-10.4 [facility] Comment on above: Performed By: #### C CHLOÉ PECK, DIME ####[address] [place] [address] Lab Director: Eder Herrera MD Chloride [Moles/Vol] 99 mmol/L Normal 98-107 [facility] Comment on above: Performed By: #### C CHLOÉ PECK, DIME ####[address] , [place] 189[address]83 Lab Director: Eder Herrera MD CO2 [Moles/Vol] 23 mmol/L Normal 20-31 [facility] Comment on above: Performed By: #### C CHLOÉ PECK, DIME ####[address] [place] [address] Lab Director: Eder Herrera MD Creatinine [Mass/Vol] 1.8 mg/dL High 0.70-1.20 [facility] Comment on above: Performed By: #### C CHLOÉ PECK, DIME ####[address] , [place] 6[address]83 Lab Director: Eder Herrera MD GFR/1.73 sq M.predicted among non-blacks MDRD (S/P/Bld) [Vol rate/Area] 41 mL/min/{1.73_m2} Low >60 [facility] Comment on above: Result Comment: Thes e [...] Performed By: #### C CHLOÉ PECK, DIME ####[address] , [place] 560[address]83 Lab Director: Eder Herrera MD Glucose [Mass/Vol] 118 mg/dL High 74-99 [facility] Comment on above: Performed By: #### C CHLOÉ PECK, DIME ####[address] [place] [address] Lab Director: Eder Herrera MD Potassium [Moles/Vol] 4.1 mmol/L Normal 3.7-5.3 [facility] Comment on above: Performed By: #### C CHLOÉ PECK, DIME ####[address] , [place] 36[address] Lab Director: Eder Herrera MD Protein [Mass/Vol] 6.2 g/dL Low 6.6-8.7 [facility] Comment on above: Performed By: #### C DP CP, DIME ####[facility] [place] [address] lab Director: Eder Herrera MD Sodium [Moles/Vol] 135 mmol/L Low 136-145 [facility] Comment on above: Performed By: #### C DP CP, DIME ####[facility] [place] [address] lab Director: Eder Herrera MD Urea nitrogen [Mass/Vol] 55 mg/dL High 8-23 [facility] Comment on above: Performed By: #### C CHLOÉ PECK, DIME ####[address] [place] [address] lab Director: Eder Herrera MD D-Dimer Teston 02-28-2024 D-Dimer Test 0.43 ug/mL FEU Normal 0.00-0.59 [facility] Comment on above: Result Comment: When [...] Performed By: #### C DP, CHLOÉ, CATHY ####[facility] [place] [address] Lab Director: Eder Herrera MD D-Dimer, Quantitativeon 10- Fibrin D-dimer FEU (PPP) [Mass/Vol] 0.43 [facility] Comment on above: When combined with [...] more prevalent in patients with distal DVT. [facility] Basic Metab w/rfx MGon 02-26 Anion gap [Moles/Vol] 11 mmol/L Normal 9-16 [facility] Comment on above: Performed By: #### B MPX, CDP ####[facility] [place] [address] lab Director: Eder Herrera MD BUN/CRE Ratio 27 High 9-20 [facility] Comment on above: Performed By: #### B MPX, CDP ####[facility] [place], [place] [address] Lab Director: Eder Herrera MD Calcium [Mass/Vol] 8.8 mg/dL Normal 8.6-10.4 [facility] Comment on above: Performed By: #### B MPX, CDP ####[address] , [place] 2869[address] Lab Director: Eder Herrera MD Chloride [Moles/Vol] 99 mmol/L Normal 98-107 [facility] Comment on above: Performed By: #### B MPX, CDP ####[address] , [place] 457[address]83 Lab Director: Eder Herrera MD CO2 [Moles/Vol] 25 mmol/L Normal 20-31 [facility] Comment on above: Performed By: #### B MPX, CDP ####[address] , [place] 428[address]83 Lab Director: Eder Herrera MD Creatinine [Mass/Vol] 2.1 mg/dL High 0.70-1.20 [facility] Comment on above: Performed By: #### B MPX, CDP ####[address] , [place] 3973983 Lab Director: Eder Herrera MD GFR/1.73 sq M.predicted among non-blacks MDRD (S/P/Bld) [Vol rate/Area] 35 mL/min/{1.73_m2} Low >60 [facility] Comment on above: Result Comment: Thes e [...] secretion. Performed By: #### B MPX, CDP ####[address] [place] [address] Lab Director: Eder Herrera MD Glucose [Mass/Vol] 221 mg/dL High 74-99 [facility] Comment on above: Performed By: #### B MPX, CDP ####[facility] [place] , [place] 0624[address] lab Director: Eder Herrera MD Potassium [Moles/Vol] 4.0 mmol/L Normal 3.7-5.3 [facility] Comment on above: Performed By: #### B MPX, CDP ####[facility] [place] , [place] 612[address]83 lab Director: Eder Herrera MD Sodium [Moles/Vol] 135 mmol/L Low 136-145 [facility] Comment on above: Performed By: #### B MPX, CDP ####[facility] [place] , [place] 4791883 lab Director: Eder Herrera MD Urea nitrogen [Mass/Vol] 57 mg/dL High 8-23 [facility] Comment on above: Performed By: #### B MPX, CDP ####[facility] [place] , [place] 4872083 lab Director: Eder Herrera MD Basic Metabolic Panel w/ Ref willam to MGon 02-27-2024 Anion gap [Moles/Vol] 11 mmol/L 9 - 16 mmol/L [facility] Calcium [Mass/Vol] 8.8 mg/dL 8.6 - 10. 4 mg/dL [facility] Chloride [Moles/Vol] 99 mmol/L 98 - 10 7 mmol/L [facility] CO2 [Moles/Vol] 25 mmol/L 20 - 31 mmol/L [facility] Creatinine [Mass/Vol] 2.1 mg/dL High 0.70 - 1.20 mg/dL [facility] Est, Glom Filt Rate 35 Low - [facility] Comment on above: These results are not [...] 221 mg/dL High 74 - 99 mg/dL [facility] Interpretation and review of laboratory results Abnormal [facility] Potassium [Moles/Vol] 4.0 mmol/L 3.7 - 5.3 mmol/L [facility] Sodium [Moles/Vol] 135 mmol/L Low 136 - 145 mmol/L [facility] Urea nitrogen [Mass/Vol] 57 mg/dL High 8 - 23 mg/dL [facility] Urea nitrogen/Creatinine [Mass ratio] 27 mg/mg High 9 - 20 [facility] CBC auto differentialon 10-0 Basophils (Bld) [#/Vol] 0.04 10*3/uL [facility] Basophils/100 WBC (Bld) 1 % 0 - 2 % B [facility] Eosinophils (Bld) [#/Vol] 0.20 10*3/uL [facility] Eosinophils/100 WBC (Bld) 3 % 1 - 4 % [facility] Erythrocyte distribution width (RBC) [Ratio] 12.5 % 11.8 - 14.4 % [facility] Hematocrit (Bld) [Volume fraction] 36.4 % Low 40.7 - 50.3 % [facility] Hemoglobin (Bld) [Mass/Vol] 12.0 g/dL Low 13.0 - 17.0 g/dL [facility] Immature granulocytes (Bld) [#/Vol] [facility] Immature granulocytes/100 WBC (Bld) 0 % 0 [facility] Interpretation and review of laboratory results Abnormal [facility] Lymphocytes/100 WBC (Bld) 33 % 24 - 43 % [facility] Lymphocytes/100 WBC (Bld) 2.48 % [facility] MCH (RBC) [Entitic mass] 29.1 pg 25.2 - 33.5 pg [facility] MCHC (RBC) [Mass/Vol] 33.0 g/dL 28.4 - 34.8 g/dL [facility] MCV (RBC) [Entitic vol] 88.1 fL 82.6 - 102.9 fL [facility] Monocytes/100 WBC (Bld) 11 % 3 - 12 % [facility] Monocytes/100 WBC (Bld) 0.83 % [facility] Neutrophils/100 WBC (Bld) 52 % 36 - 65 % [facility] Nucleated RBC/100 WBC (Bld) [Ratio] 0.0 % 0.0 per 100 WBC [facility] Platelet mean volume (Bld) [Entitic vol] 11.1 fL 8.1 - 13.5 fL [facility] Platelets (Bld) [#/Vol] 233 10*3/uL [facility] RBC (Bld) [#/Vol] 4.13 10*6/uL Low 4.21 - 5.7 7 m/uL [facility] Segmented neutrophils/100 WBC (Bld) 3.95 % [facility] WBC other (Bld) [#/Vol] 7.[address] [facility] CBC with Diffon 02-27-2024 Abs. Basophil 0.04 k/uL Normal 0.00-0.20 [facility] Comment on above: Performed By: #### B MPX, CDP ####[address] , [place] [phone] lab Director: Eder Herrera MD Abs.Imm.Granulocyte <0.03 Normal 0.00-0.30 [facility] Comment on above: Performed By: #### B MPX, CDP ####[address] [place] [address] lab Director: Eder Herrera MD Abs.Neutrophil (Seg) 3.95 k/uL Normal 1.50-8.10 [facility] Comment on above: Performed By: #### B MPX, CDP ####[address] , [place] 6202083 Lab Director: Eder Herrera MD Basophils/100 WBC (Bld) 1 % Normal 0-2 [facility] Comment on above: Performed By: #### B MPX, CDP ####[address] , [place] 4243983 lab Director: Eder Herrera MD Eosinophils (Bld) [#/Vol] 0.20 10*3/uL Normal 0.00-0.44 [facility] Comment on above: Performed By: #### B MPX, CDP ####[address] , [place] 4228583 lab Director: Eder Herrera MD Eosinophils/100 WBC (Bld) 3 % Normal 1-4 [facility] Comment on above: Performed By: #### B MPX, CDP ####[address] , [place] [phone] lab Director: Eder Herrera MD Erythrocyte distribution width (RBC) [Ratio] 12.5 % Normal 11.8-14.4 [facility] Comment on above: Performed By: #### B MPX, CDP ####[address] , [place] 9272183 Lab Director: Eder Herrera MD Hematocrit (Bld) [Volume fraction] 36.4 % Low 40.7-50.3 [facility] Comment on above: Performed By: #### B MPX, CDP ####[address] [place] [address] Lab Director: Eder Herrera MD Hemoglobin (Bld) [Mass/Vol] 12.0 g/dL Low 13.0-17.0 [facility] Comment on above: Performed By: #### B MPX, CDP ####[address] , [place] 9221383 Lab Director: Eder Herrera MD Immature granulocytes/100 WBC (Bld) 0 % Normal 0 [facility] Comment on above: Performed By: #### B MPX, CDP ####[address] , [place] 4176583 Lab Director: Eder Herrera MD Lymphocytes (Bld) [#/Vol] 2.48 10*3/uL Normal 1.10-3.70 [facility] Comment on above: Performed By: #### B MPX, CDP ####[address] , [place] 7757783 Lab Director: Eder Herrera MD Lymphocytes/100 WBC (Bld) 33 % Normal 24-43 [facility] Comment on above: Performed By: #### B MPX, CDP ####[address] [place] [address] Lab Director: Eder Herrera MD MCH (RBC) [Entitic mass] 29.1 pg Normal 25.2-33.5 [facility] Comment on above: Performed By: #### B MPX, CDP ####[address] , [place] 6332383 Lab Director: Eder Herrera MD MCHC (RBC) [Mass/Vol] 33.0 g/dL Normal 28.4-34.8 [facility] Comment on above: Performed By: #### B MPX, CDP ####[address] , [place] 3874483 Lab Director: Eder Herrera MD MCV (RBC) [Entitic vol] 88.1 fL Normal 82.6-102.9 [facility] Comment on above: Performed By: #### B MPX, CDP ####[address] , [place] 7784283 Lab Director: Eder Herrera MD Monocytes (Bld) [#/Vol] 0.83 10*3/uL Normal 0.10-1.20 [facility] Comment on above: Performed By: #### B MPX, CDP ####[address] , [place] 5975283 Lab Director: Eder Herrera MD Monocytes/100 WBC (Bld) 11 % Normal 3-12 [facility] Comment on above: Performed By: #### B MPX, CDP ####[address] [place] [address] Lab Director: Eder Herrera MD Neutrophil (Seg) 52 % Normal 36-65 [facility] Comment on above: Performed By: #### B MPX, CDP ####[address] , [place] 8085583 Lab Director: Eder Herrera MD NRBC Automated 0.0 per 100 WBC Normal 0.0 [facility] Comment on above: Performed By: #### B MPX, CDP ####[address] , [place] [phone] Director: Eder Herrera MD Platelet mean volume (Bld) [Entitic vol] 11.1 fL Normal 8.1-13.5 [facility] Comment on above: Performed By: #### B MPX, CDP ####[address] , [place] [phone] Director: Eder Herrera MD Platelets (Bld) [#/Vol] 233 10*3/uL Normal 138-453 [facility] Comment on above: Performed By: #### B MPX, CDP ####[address] , [place] 9442483 Lab Director: Eder Herrera MD RBC (Bld) [#/Vol] 4.13 10*6/uL Low 4.21-5.77 [facility] Comment on above: Performed By: #### B MPX, CDP ####[facility] [place] , [place] 0948183 lab Director: Eder Herrera MD WBC (Bld) [#/Vol] 7.5 10*3/uL Normal 3.5-11.3 [facility] Comment on above: Performed By: #### B MPX, CDP ####[facility] [place] , [place] 8302483 lab Director: Eder eHrrera MD Glucose, Whole Bloodon 02-26 Glucose [Mass/Vol] 223 mg/dL High 74 - 100 mg/dL [facility] Interpretation and review of laboratory results Abnormal [facility] Glucose [Mass/Vol] 223 mg/dL High 74-100 [facility] Glucose [Mass/Vol] 201 mg/dL High 74 - 100 mg/dL [facility] Interpretation and review of laboratory results Abnormal [facility] Glucose [Mass/Vol] 201 mg/dL High 74-100 [facility] Basic Metab w/rfx MGon 02-25 Anion gap [Moles/Vol] 11 mmol/L Normal 9-16 [facility] Comment on above: Performed By: #### C DP, BMPX ####[address] , [place] 5850883 lab Director: Eder Herrera MD BUN/CRE Ratio 23 High 9-20 [facility] Comment on above: Performed By: #### C DP, BMPX ####[address] , [place] 2495583 lab Director: Eder Herrera MD Calcium [Mass/Vol] 9.0 mg/dL Normal 8.6-10.4 [facility] Comment on above: Performed By: #### C DP, BMPX ####[address] [place] [address] Lab Director: Eder Herrera MD Chloride [Moles/Vol] 102 mmol/L Normal 98-107 [facility] Comment on above: Performed By: #### C DP, BMPX ####[facility] [place] , [place] 5436383 Lab Director: Eder Herrera MD CO2 [Moles/Vol] 27 mmol/L Normal 20-31 [facility] Comment on above: Performed By: #### C DP, BMPX ####[facility] [place] , [place] 0208483 Lab Director: Eder Herrera MD Creatinine [Mass/Vol] 2.1 mg/dL High 0.70-1.20 [facility] Comment on above: Performed By: #### C DP, BMPX ####[facility] [place] , [place] 4842483 Lab Director: Eder Herrera MD GFR/1.73 sq M.predicted among non-blacks MDRD (S/P/Bld) [Vol rate/Area] 36 mL/min/{1.73_m2} Low >60 [facility] Comment on above: Result Comment: Thes e [...] secretion. Performed By: #### C DP, BMPX ####[facility] [place] [address] Lab Director: Eder Herrera MD Glucose [Mass/Vol] 189 mg/dL High 74-99 [facility] Comment on above: Performed By: #### C DP, BMPX ####[facility], [place] 2524683 Lab Director: Eder Herrera MD Potassium [Moles/Vol] 3.8 mmol/L Normal 3.7-5.3 [facility] Comment on above: Performed By: #### C DP, BMPX ####[facility] 1877483 lab Director: Eder Herrera MD Sodium [Moles/Vol] 140 mmol/L Normal 136-145 [facility] Comment on above: Performed By: #### C DP, BMPX ####[facility] 258[address]83 lab Director: Eder Herrera MD Urea nitrogen [Mass/Vol] 49 mg/dL High 8-23 [facility] Comment on above: Performed By: #### C DP, BMPX ####[address] , [place] 639[address]83 lab Director: Eder Herrera MD Basic Metabolic Panel w/ Ref willam to MGon 02-26-2024 Anion gap [Moles/Vol] 11 mmol/L 9 - 16 mmol/L [facility] Calcium [Mass/Vol] 9.0 mg/dL 8.6 - 10. 4 mg/dL [facility] Chloride [Moles/Vol] 102 mmol/L 98 - 10 7 mmol/L [facility] CO2 [Moles/Vol] 27 mmol/L 20 - 31 mmol/L [facility] Creatinine [Mass/Vol] 2.1 mg/dL High 0.70 - 1.20 mg/dL [facility] Est, Glom Filt Rate 36 Low - [facility] Comment on above: These results are not [...] 189 mg/dL High 74 - 99 mg/dL [facility] Interpretation and review of laboratory results Abnormal [facility] Potassium [Moles/Vol] 3.8 mmol/L 3.7 - 5.3 mmol/L [facility] Sodium [Moles/Vol] 140 mmol/L 136 - 145 mmol/L [facility] Urea nitrogen [Mass/Vol] 49 mg/dL High 8 - 23 mg/dL [facility] Urea nitrogen/Creatinine [Mass ratio] 23 mg/mg High 9 - 20 [facility] CBC auto differentialon 10-0 Basophils (Bld) [#/Vol] 0.03 10*3/uL [facility] Basophils/100 WBC (Bld) 0 % 0 - 2 % B [facility] Eosinophils (Bld) [#/Vol] 0.12 10*3/uL [facility] Eosinophils/100 WBC (Bld) 2 % 1 - 4 % [facility] Erythrocyte distribution width (RBC) [Ratio] 12.6 % 11.8 - 14.4 % [facility] Hematocrit (Bld) [Volume fraction] 37.5 % Low 40.7 - 50.3 % [facility] Hemoglobin (Bld) [Mass/Vol] 12.3 g/dL Low 13.0 - 17.0 g/dL [facility] Immature granulocytes (Bld) [#/Vol] [facility] Immature granulocytes/100 WBC (Bld) 0 % 0 [facility] Interpretation and review of laboratory results Abnormal [facility] Lymphocytes/100 WBC (Bld) 32 % 24 - 43 % [facility] Lymphocytes/100 WBC (Bld) 2.38 % [facility] MCH (RBC) [Entitic mass] 28.8 pg 25.2 - 33.5 pg [facility] MCHC (RBC) [Mass/Vol] 32.8 g/dL 28.4 - 34.8 g/dL [facility] MCV (RBC) [Entitic vol] 87.8 fL 82.6 - 102.9 fL [facility] Monocytes/100 WBC (Bld) 14 % High 3 - 12 % [facility] Monocytes/100 WBC (Bld) 1.02 % [facility] Neutrophils/100 WBC (Bld) 52 % 36 - 65 % [facility] Nucleated RBC/100 WBC (Bld) [Ratio] 0.0 % 0.0 per 100 WBC [facility] Platelet mean volume (Bld) [Entitic vol] 11.2 fL 8.1 - 13.5 fL [facility] Platelets (Bld) [#/Vol] 245 10*3/uL [facility] RBC (Bld) [#/Vol] 4.27 10*6/uL 4.21 - 5.7 7 m/uL [facility] Segmented neutrophils/100 WBC (Bld) 3.78 % [facility] WBC other (Bld) [#/Vol] 7.[address] [facility] CBC with Diffon 02-26-2024 Abs. Basophil 0.03 k/uL Normal 0.00-0.20 [facility] Comment on above: Performed By: #### C DP, BMPX ####[address] [place] [address] Lab Director: Eder Herrera MD Abs.Imm.Granulocyte <0.03 Normal 0.00-0.30 [facility] Comment on above: Performed By: #### C DP, BMPX ####[address] , [place] [address] Lab Director: Eder Herrera MD Abs.Neutrophil (Seg) 3.78 k/uL Normal 1.50-8.10 [facility] Comment on above: Performed By: #### C DP, BMPX ####[address] [place] [id number] Lab Director: Eder Herrera MD Basophils/100 WBC (Bld) 0 % Normal 0-2 M [facility] Comment on above: Performed By: #### C DP, BMPX ####[address] [place] [address] Lab Director: Eder Herrera MD Eosinophils (Bld) [#/Vol] 0.12 10*3/uL Normal 0.00-0.44 [facility] Comment on above: Performed By: #### C DP, BMPX ####[address] , [place] [address] Lab Director: Eder Herrera MD Eosinophils/100 WBC (Bld) 2 % Normal 1-4 [facility] Comment on above: Performed By: #### C DP, BMPX ####[address] , [place] [address] Lab Director: Eder Herrera MD Erythrocyte distribution width (RBC) [Ratio] 12.6 % Normal 11.8-14.4 [facility] Comment on above: Performed By: #### C DP, BMPX ####[address] , [place] [address] Lab Director: Eder Herrera MD Hematocrit (Bld) [Volume fraction] 37.5 % Low 40.7-50.3 [facility] Comment on above: Performed By: #### C DP, BMPX ####[address] , [facility]83 Lab Director: Eder Herrera MD Hemoglobin (Bld) [Mass/Vol] 12.3 g/dL Low 13.0-17.0 [facility] Comment on above: Performed By: #### C DP, BMPX ####[address] [place] [id number] Lab Director: Eder Herrera MD Immature granulocytes/100 WBC (Bld) 0 % Normal 0 [facility] Comment on above: Performed By: #### C DP, BMPX ####[address] , [facility]83 [facility] Director: Eder Herrera MD Lymphocytes (Bld) [#/Vol] 2.38 10*3/uL Normal 1.10-3.70 [facility] Comment on above: Performed By: #### C DP, BMPX ####[address] , [facility]83 Lab Director: Eder Herrera MD Lymphocytes/100 WBC (Bld) 32 % Normal 24-43 [facility] Comment on above: Performed By: #### C DP, BMPX ####[address] , [facility]83[facility])[phone] Director: Eder Herrera MD MCH (RBC) [Entitic mass] 28.8 pg Normal 25.2-33.5 [facility] Comment on above: Performed By: #### C DP, BMPX ####[address] , [facility]83[facility])[phone] Director: Eder Herrera MD MCHC (RBC) [Mass/Vol] 32.8 g/dL Normal 28.4-34.8 [facility] Comment on above: Performed By: #### C DP, BMPX ####[address] , [facility]83[facility])[phone] Director: Eder Herrera MD MCV (RBC) [Entitic vol] 87.8 fL Normal 82.6-102.9 [facility] Comment on above: Performed By: #### C DP, BMPX ####[address] , [place] [phone] Lab Director: Eder Herrera MD Monocytes (Bld) [#/Vol] 1.02 10*3/uL Normal 0.10-1.20 [facility] Comment on above: Performed By: #### C DP, BMPX ####[address] , [place] [phone] Lab Director: Eder Herrera MD Monocytes/100 WBC (Bld) 14 % High 3-12 M [facility] Comment on above: Performed By: #### C DP, BMPX ####[address] [place] [address] Lab Director: Eder Herrera MD Neutrophil (Seg) 52 % Normal 36-65 [facility] Comment on above: Performed By: #### C DP, BMPX ####[address] [place] [address] Lab Director: Eder Herrera MD NRBC Automated 0.0 per 100 WBC Normal 0.0 [facility] Comment on above: Performed By: #### C DP, BMPX ####[address] , [place] [phone] Lab Director: Eder Herrera MD Platelet mean volume (Bld) [Entitic vol] 11.2 fL Normal 8.1-13.5 [facility] Comment on above: Performed By: #### C DP, BMPX ####[address] , [place] [phone] Director: Eder Herrera MD Platelets (Bld) [#/Vol] 245 10*3/uL Normal 138-453 [facility] Comment on above: Performed By: #### C DP, BMPX ####[address] , [place] [phone] Director: Eder Herrera MD RBC (Bld) [#/Vol] 4.27 10*6/uL Normal 4.21-5.77 [facility] Comment on above: Performed By: #### C DP, BMPX ####[address] [place] [address] Lab Director: Eder Herrera MD WBC (Bld) [#/Vol] 7.4 10*3/uL Normal 3.5-11.3 [facility] Comment on above: Performed By: #### C DP, BMPX ####[facility] [place] [address] lab Director: Eder Herrera MD Glucose, Whole Bloodon 02-25 Glucose [Mass/Vol] 245 mg/dL High 74 - 100 mg/dL [facility] Interpretation and review of laboratory results Abnormal [facility] Glucose [Mass/Vol] 245 mg/dL High 74-100 [facility] Glucose [Mass/Vol] 274 mg/dL High 74 - 100 mg/dL [facility] Interpretation and review of laboratory results Abnormal [facility] Glucose [Mass/Vol] 274 mg/dL High 74-100 [facility] Glucose [Mass/Vol] 299 mg/dL High 74 - 100 mg/dL [facility] Interpretation and review of laboratory results Abnormal [facility] Glucose [Mass/Vol] 299 mg/dL High 74-100 [facility] Glucose [Mass/Vol] 196 mg/dL High 74 - 100 mg/dL [facility] Interpretation and review of laboratory results Abnormal [facility] Glucose [Mass/Vol] 196 mg/dL High 74-100 [facility] Basic Metab w/rfx MGon 02-24 Anion gap [Moles/Vol] 11 mmol/L Normal 9-16 [facility] Comment on above: Performed By: #### C DP, BMPX, MG ####[facility] [place] , [place] [phone] lab Director: Eder Herrera MD BUN/CRE Ratio 25 High 9-20 [facility] Comment on above: Performed By: #### C DP, BMPX, MG ####[facility] [place] [address] lab Director: Eder Herrera MD Calcium [Mass/Vol] 9.1 mg/dL Normal 8.6-10.4 [facility] Comment on above: Performed By: #### C DP, BMPX, MG ####[address] , [place] [phone] lab Director: Eder Herrera MD Chloride [Moles/Vol] 103 mmol/L Normal 98-107 [facility] Comment on above: Performed By: #### C DP, BMPX, MG ####[address] , [place] [phone] lab Director: Eder Herrera MD CO2 [Moles/Vol] 26 mmol/L Normal 20-31 [facility] Comment on above: Performed By: #### C DP, BMPX, MG ####[address] , [place] [phone] lab Director: Eder Herrera MD Creatinine [Mass/Vol] 1.7 mg/dL High 0.70-1.20 [facility] Comment on above: Performed By: #### C DP, BMPX, MG ####[address] , [place] [phone] lab Director: Eder Herrera MD GFR/1.73 sq M.predicted among non-blacks MDRD (S/P/Bld) [Vol rate/Area] 45 mL/min/{1.73_m2} Low >60 [facility] Comment on above: Result Comment: Thes e [...] Performed By: #### C DP, BMPX, MG ####[address] [place] [address] lab Director: Eder Herrera MD Glucose [Mass/Vol] 116 mg/dL High 74-99 [facility] Comment on above: Performed By: #### C DP, BMPX, MG ####[facility] [place] [address] Lab Director: Eder Herrera MD Potassium [Moles/Vol] 3.1 mmol/L Low 3.7-5.3 [facility] Comment on above: Performed By: #### C DP, BMPX, MG ####[facility] [place] [address] lab Director: Eder Herrera MD Sodium [Moles/Vol] 140 mmol/L Normal 136-145 [facility] Comment on above: Performed By: #### C DP, BMPX, MG ####[facility] [place] [address] Lab Director: Eder Herrera MD Urea nitrogen [Mass/Vol] 42 mg/dL High 8-23 [facility] Comment on above: Performed By: #### C DP, BMPX, MG ####[facility] [place] [address] lab Director: Eder Herrera MD Basic Metabolic Panel w/ Ref willam to MGon 02-25-2024 Anion gap [Moles/Vol] 11 mmol/L 9 - 16 mmol/L [facility] Calcium [Mass/Vol] 9.1 mg/dL 8.6 - 10. 4 mg/dL [facility] Chloride [Moles/Vol] 103 mmol/L 98 - 10 7 mmol/L [facility] CO2 [Moles/Vol] 26 mmol/L 20 - 31 mmol/L [facility] Creatinine [Mass/Vol] 1.7 mg/dL High 0.70 - 1.20 mg/dL [facility] Est, Glom Filt Rate 45 Low - [facility] Comment on above: These results are [...] 116 mg/dL High 74 - 99 mg/dL [facility] Interpretation and review of laboratory results Abnormal [facility] Potassium [Moles/Vol] 3.1 mmol/L Low 3.7 - 5.3 mmol/L [facility] Sodium [Moles/Vol] 140 mmol/L 136 - 145 mmol/L [facility] Urea nitrogen [Mass/Vol] 42 mg/dL High 8 - 23 mg/dL [facility] Urea nitrogen/Creatinine [Mass ratio] 25 mg/mg High 9 - 20 [facility] CBC auto differentialon 10-0 Basophils (Bld) [#/Vol] 0.05 10*3/uL [facility] Basophils/100 WBC (Bld) 1 % 0 - 2 % [facility] Eosinophils (Bld) [#/Vol] 0.10 10*3/uL [facility] Eosinophils/100 WBC (Bld) 2 % 1 - 4 % [facility] Erythrocyte distribution width (RBC) [Ratio] 12.4 % 11.8 - 14.4 % [facility] Hematocrit (Bld) [Volume fraction] 37.3 % Low 40.7 - 50.3 % [facility] Hemoglobin (Bld) [Mass/Vol] 12.5 g/dL Low 13.0 - 17.0 g/dL [facility] Immature granulocytes (Bld) [#/Vol] 0.03 10*3/uL [facility] Immature granulocytes/100 WBC (Bld) 0 % 0 [facility] Interpretation and review of laboratory results Abnormal [facility] Lymphocytes/100 WBC (Bld) 37 % 24 - 43 % [facility] Lymphocytes/100 WBC (Bld) 2.50 % [facility] MCH (RBC) [Entitic mass] 29.1 pg 25.2 - 33.5 pg [facility] MCHC (RBC) [Mass/Vol] 33.5 g/dL 28.4 - 34.8 g/dL [facility] MCV (RBC) [Entitic vol] 86.7 fL 82.6 - 102.9 fL [facility] Monocytes/100 WBC (Bld) 14 % High 3 - 12 % [facility] Monocytes/100 WBC (Bld) 0.92 % [facility] Neutrophils/100 WBC (Bld) 47 % 36 - 65 % [facility] Nucleated RBC/100 WBC (Bld) [Ratio] 0.0 % 0.0 per 100 WBC [facility] Platelet mean volume (Bld) [Entitic vol] 10.8 fL 8.1 - 13.5 fL [facility] Platelets (Bld) [#/Vol] 257 10*3/uL [facility] RBC (Bld) [#/Vol] 4.30 10*6/uL 4.21 - 5.7 7 m/uL [facility] Segmented neutrophils/100 WBC (Bld) 3.23 % [facility] WBC other (Bld) [#/Vol] 6.[address] [facility] CBC with Diffon 02-25-2024 Abs. Basophil 0.05 k/uL Normal 0.00-0.20 [facility] Comment on above: Performed By: #### C DP BMPX, MG ####[address] , [facility]83 Lab Director: Eder Herrera MD Abs.Imm.Granulocyte 0.03 k/uL Normal 0.00-0.30 [facility] Comment on above: Performed By: #### C DP BMPX, MG ####[address] , [place] [phone] lab Director: Eder Herrera MD Abs.Neutrophil (Seg) 3.23 k/uL Normal 1.50-8.10 [facility] Comment on above: Performed By: #### C DP, BMPX, MG ####[address] , [place] [phone] Lab Director: Eder Herrera MD Basophils/100 WBC (Bld) 1 % Normal 0-2 [facility] Comment on above: Performed By: #### C DP, BMPX, MG ####[address] , [facility]83 Lab Director: Eder Herrera MD Eosinophils (Bld) [#/Vol] 0.10 10*3/uL Normal 0.00-0.44 [facility] Comment on above: Performed By: #### C DP, BMPX, MG ####[address] , [facility]83 Lab Director: Eder Herrera MD Eosinophils/100 WBC (Bld) 2 % Normal 1-4 [facility] Comment on above: Performed By: #### C DP, BMPX, MG ####[address] , [facility]83 Lab Director: Eder Herrera MD Erythrocyte distribution width (RBC) [Ratio] 12.4 % Normal 11.8-14.4 [facility] Comment on above: Performed By: #### C DP, BMPX, MG ####[address] , [place] [address] Lab Director: Eder Herrera MD Hematocrit (Bld) [Volume fraction] 37.3 % Low 40.7-50.3 [facility] Comment on above: Performed By: #### C DP, BMPX, MG ####[address] , [place] [phone] Lab Director: Eder Herrera MD Hemoglobin (Bld) [Mass/Vol] 12.5 g/dL Low 13.0-17.0 [facility] Comment on above: Performed By: #### C DP, BMPX, MG ####[address] , [facility]83 Lab Director: Eder Herrera MD Immature granulocytes/100 WBC (Bld) 0 % Normal 0 [facility] Comment on above: Performed By: #### C DP, BMPX, MG ####[address] , [facility]83 lab Director: Eder Herrera MD Lymphocytes (Bld) [#/Vol] 2.50 10*3/uL Normal 1.10-3.70 [facility] Comment on above: Performed By: #### C DP, BMPX, MG ####[address] , [facility]83 lab Director: Eder Herrera MD Lymphocytes/100 WBC (Bld) 37 % Normal 24-43 [facility] Comment on above: Performed By: #### C DP, BMPX, MG ####[address] , [facility]83 lab Director: Eder Herrera MD MCH (RBC) [Entitic mass] 29.1 pg Normal 25.2-33.5 [facility] Comment on above: Performed By: #### C DP, BMPX, MG ####[address] , [facility]83 lab Director: Eder Herrera MD MCHC (RBC) [Mass/Vol] 33.5 g/dL Normal 28.4-34.8 [facility] Comment on above: Performed By: #### C DP, BMPX, MG ####[address] , [facility]83 lab Director: Eder Herrera MD MCV (RBC) [Entitic vol] 86.7 fL Normal 82.6-102.9 M [facility] Comment on above: Performed By: #### C DP, BMPX, MG ####[address] [place] [address] Lab Director: Eder Herrera MD Monocytes (Bld) [#/Vol] 0.92 10*3/uL Normal 0.10-1.20 [facility] Comment on above: Performed By: #### C DP, BMPX, MG ####[address] [place] [address] Lab Director: Eder Herrera MD Monocytes/100 WBC (Bld) 14 % High 3-12 M [facility] Comment on above: Performed By: #### C DP, BMPX, MG ####[address] , [place] 8[address] Lab Director: Eder Herrera MD Neutrophil (Seg) 47 % Normal 36-65 [facility] Comment on above: Performed By: #### C DP, BMPX, MG ####[address] , [place] [phone] Lab Director: Eder Herrera MD NRBC Automated 0.0 per 100 WBC Normal 0.0 [facility] Comment on above: Performed By: #### C DP, BMPX, MG ####[address] [place] [address] Lab Director: Eder Herrera MD Platelet mean volume (Bld) [Entitic vol] 10.8 fL Normal 8.1-13.5 [facility] Comment on above: Performed By: #### C DP, BMPX, MG ####[address] , [place] [phone] Lab Director: Eder Herrera MD Platelets (Bld) [#/Vol] 257 10*3/uL Normal 138-453 [facility] Comment on above: Performed By: #### C DP, BMPX, MG ####[address] [place] [address] Lab Director: Eder Herrera MD RBC (Bld) [#/Vol] 4.30 10*6/uL Normal 4.21-5.77 [facility] Comment on above: Performed By: #### C DP, BMPX, MG ####[facility] [place] [address] lab Director: Eder Herrera MD WBC (Bld) [#/Vol] 6.8 10*3/uL Normal 3.5-11.3 [facility] Comment on above: Performed By: #### C DP, BMPX, MG ####[facility] [place] [address] Lab Director: Eder Herrera MD Cult,Urineon 02-25-2024 Cult,Urine Specimen Description .CLEAN CATCH URINE Special Requests Site: Urine Culture NO SIGNIFICANT GROWTH Report Status FINAL 02/25/2024 Normal [facility] Comment on above: Performed By: #### U RC ####[facility] [id number] [place], [place] [id number] Lab Director: Jimenez Pruett, [facility] [place] [address] , [place] [address] lab Director: Eder Herrera MD Culture, Urineon 02-25-2024 Microorganism identified Cx Nom (Unsp spec) NO SIGNIFICANT GROWTH [facility] comment (Unsp spec) [Interp] Site: Urine [facility] Specimen Description .CLEAN CATCH URINE [facility] Glucose, Whole Bloodon 02-24 Glucose [Mass/Vol] 301 mg/dL High 74 - 100 mg/dL [facility] Interpretation and review of laboratory results Abnormal [facility] Glucose [Mass/Vol] 301 mg/dL High 74-100 [facility] Glucose [Mass/Vol] 306 mg/dL High 74 - 100 mg/dL [facility] Interpretation and review of laboratory results Abnormal [facility] Glucose [Mass/Vol] 306 mg/dL High 74-100 [facility] Glucose [Mass/Vol] 190 mg/dL High 74 - 100 mg/dL [facility] Interpretation and review of laboratory results Abnormal [facility] Glucose [Mass/Vol] 190 mg/dL High 74-100 [facility] Glucose [Mass/Vol] 134 mg/dL High 74 - 100 mg/dL [facility] Interpretation and review of laboratory results Abnormal [facility] Glucose [Mass/Vol] 134 mg/dL High 74-100 [facility] Hemoglobin A1Con 02-25-2024 Glucose [Mass/Vol] 174 mg/dL Normal [facility] Comment on above: Result Comment: The ADA and AACC recommend providing the estimated average glucose result to permit better patient understanding of their HBA1c result. Performed By: #### G LYHGB ####[employer] [id number] [place] [id number] [facility] Director: Jimenez Pruett MD HbA1c (Bld) [Mass fraction] 7.7 % High 4.0-6.0 [facility] Comment on above: Performed By: #### G LYHGB ####[employer] [id number] [place] [id number] lab Director: Jimenez Pruett MD Hemoglobin A1con 02-25-2024 Average glucose Estimated from glycated hemoglobin (Bld) [Mass/Vol] 174 mg/dL [facility] Comment on above: The ADA and AACC rec ommend providing the estimated average glucose result to permit better patient understanding of their HBA1c result. HbA1c (Bld) [Mass fraction] 7.7 % High 4.0 - 6.0 % [facility] Interpretation and review of laboratory results Abnormal [facility] Magnesiumon 02-25-2024 Magnesium [Mass/Vol] 2.0 mg/dL 1.6 - 2 .4 mg/dL [facility] Magnesium [Mass/Vol] 2.0 mg/dL Normal 1.6-2.4 [facility] Comment on above: Performed By: #### C DP, BMPX, MG ####[facility] [place] , [place] [id number] Lab Director: Eder Herrera MD Brain Natri. Peptideon 02-23 Natriuretic peptide B (Bld) [Mass/Vol] 346 pg/mL High 0-125 [facility] Comment on above: Performed By: #### C P, CDP, BNP, MG ####[facility] [place] [address] lab Director: Eder Herrera MD Brain Natriuretic Peptideon 02-24-2024 Natriuretic peptide B (Bld) [Mass/Vol] 346 pg/mL High 0 - 125 pg/mL [facility] CBC with Auto Differentialon 02-24-2024 Basophils (Bld) [#/Vol] 0.05 10*3/uL [facility] Basophils/100 WBC (Bld) 1 % 0 - 2 % B [facility] Eosinophils (Bld) [#/Vol] 0.06 10*3/uL [facility] Eosinophils/100 WBC (Bld) 1 % 1 - 4 % [facility] Erythrocyte distribution width (RBC) [Ratio] 12.4 % 11.8 - 14.4 % [facility] Hematocrit (Bld) [Volume fraction] 44.1 % 40.7 - 50.3 % [facility] Hemoglobin (Bld) [Mass/Vol] 15.0 g/dL 13.0 - 17.0 g/dL [facility] Immature granulocytes (Bld) [#/Vol] 0.04 10*3/uL [facility] Immature granulocytes/100 WBC (Bld) 1 % High 0 [facility] Interpretation and review of laboratory results Abnormal [facility] Lymphocytes/100 WBC (Bld) 28 % 24 - 43 % [facility] Lymphocytes/100 WBC (Bld) 2.20 % [facility] MCH (RBC) [Entitic mass] 29.5 pg 25.2 - 33.5 pg [facility] MCHC (RBC) [Mass/Vol] 34.0 g/dL 28.4 - 34.8 g/dL [facility] MCV (RBC) [Entitic vol] 86.6 fL 82.6 - 102.9 fL [facility] Monocytes/100 WBC (Bld) 10 % 3 - 12 % [facility] Monocytes/100 WBC (Bld) 0.76 % [facility] Neutrophils/100 WBC (Bld) 59 % 36 - 65 % [facility] Nucleated RBC/100 WBC (Bld) [Ratio] 0.0 % 0.0 per 100 WBC [facility] Platelet mean volume (Bld) [Entitic vol] 10.9 fL 8.1 - 13.5 fL [facility] Platelets (Bld) [#/Vol] 291 10*3/uL [facility] RBC (Bld) [#/Vol] 5.09 10*6/uL 4.21 - 5.7 7 m/uL [facility] Segmented neutrophils/100 WBC (Bld) 4.69 % [facility] WBC other (Bld) [#/Vol] 7.[address] [facility] CBC with Diffon 02-24-2024 Abs. Basophil 0.05 k/uL Normal 0.00-0.20 [facility] Comment on above: Performed By: #### C P, CDP, BNP, MG ####[address] , [place] [address] Lab Director: Eder Herrera MD Abs.Imm.Granulocyte 0.04 k/uL Normal 0.00-0.30 [facility] Comment on above: Performed By: #### C P, CDP, BNP, MG ####[address] [place] [address] Lab Director: Eder Herrera MD Abs.Neutrophil (Seg) 4.69 k/uL Normal 1.50-8.10 [facility] Comment on above: Performed By: #### C P, CDP, BNP, MG ####[address] , [place] [id number] Lab Director: Eder Herrera MD Basophils/100 WBC (Bld) 1 % Normal 0-2 [facility] Comment on above: Performed By: #### C P, CDP, BNP, MG ####[address] , [place] [phone] lab Director: Eder Herrera MD Eosinophils (Bld) [#/Vol] 0.06 10*3/uL Normal 0.00-0.44 [facility] Comment on above: Performed By: #### C P, CDP, BNP, MG ####[address] , [facility]83 lab Director: Eder Herrera MD Eosinophils/100 WBC (Bld) 1 % Normal 1-4 [facility] Comment on above: Performed By: #### C P, CDP, BNP, MG ####[address] , [facility]83 lab Director: Eder Herrera MD Erythrocyte distribution width (RBC) [Ratio] 12.4 % Normal 11.8-14.4 [facility] Comment on above: Performed By: #### C P, CDP, BNP, MG ####[address] , [facility]83 lab Director: Eder Herrera MD Hematocrit (Bld) [Volume fraction] 44.1 % Normal 40.7-50.3 [facility] Comment on above: Performed By: #### C P, CDP, BNP, MG ####[address] , [place] [id number] lab Director: Eder Herrera MD Hemoglobin (Bld) [Mass/Vol] 15.0 g/dL Normal 13.0-17.0 [facility] Comment on above: Performed By: #### C P, CDP, BNP, MG ####[address] , [place] 9[address]83 lab Director: Eder Herrera MD Immature granulocytes/100 WBC (Bld) 1 % High 0 [facility] Comment on above: Performed By: #### C P, CDP, BNP, MG ####[address] , [place] 4485483 lab Director: Eder Herrera MD Lymphocytes (Bld) [#/Vol] 2.20 10*3/uL Normal 1.10-3.70 [facility] Comment on above: Performed By: #### C P, CDP, BNP, MG ####[address] , [place] 7087383 lab Director: Eder Herrera MD Lymphocytes/100 WBC (Bld) 28 % Normal 24-43 [facility] Comment on above: Performed By: #### C P, CDP, BNP, MG ####[address] , [place] [id number] lab Director: Eder Herrera MD MCH (RBC) [Entitic mass] 29.5 pg Normal 25.2-33.5 [facility] Comment on above: Performed By: #### C P, CDP, BNP, MG ####[address] , [place] [id number] lab Director: Eder Herrera MD MCHC (RBC) [Mass/Vol] 34.0 g/dL Normal 28.4-34.8 [facility] Comment on above: Performed By: #### C P, CDP, BNP, MG ####[address] , [place] 3732283 lab Director: Eder Herrera MD MCV (RBC) [Entitic vol] 86.6 fL Normal 82.6-102.9 [facility] Comment on above: Performed By: #### C P, CDP, BNP, MG ####[address] , [place] 9852683 Lab Director: Eder Herrera MD Monocytes (Bld) [#/Vol] 0.76 10*3/uL Normal 0.10-1.20 [facility] Comment on above: Performed By: #### C P, CDP, BNP, MG ####[address] , [place] 7676383 Lab Director: Eder Herrera MD Monocytes/100 WBC (Bld) 10 % Normal 3-12 [facility] Comment on above: Performed By: #### C P, CDP, BNP, MG ####[address] , [facility]83 Lab Director: dEer Herrera MD Neutrophil (Seg) 59 % Normal 36-65 [facility] Comment on above: Performed By: #### C P, CDP, BNP, MG ####[address] , [facility]83 Lab Director: Eder Herrera MD NRBC Automated 0.0 per 100 WBC Normal 0.0 [facility] Comment on above: Performed By: #### C P, CDP, BNP, MG ####[address] , [place] 1655883 Lab Director: Eder Herrera MD Platelet mean volume (Bld) [Entitic vol] 10.9 fL Normal 8.1-13.5 [facility] Comment on above: Performed By: #### C P, CDP, BNP, MG ####[address] , [place] 5632183 Lab Director: Eder Herrera MD Platelets (Bld) [#/Vol] 291 10*3/uL Normal 138-453 [facility] Comment on above: Performed By: #### C P, CDP, BNP, MG ####[address] [place] [address] lab Director: Eder Herrera MD RBC (Bld) [#/Vol] 5.09 10*6/uL Normal 4.21-5.77 [facility] Comment on above: Performed By: #### C P, CDP, BNP, MG ####[facility] [place] [address] lab Director: Eder Herrera MD WBC (Bld) [#/Vol] 7.8 10*3/uL Normal 3.5-11.3 [facility] Comment on above: Performed By: #### C P, CDP, BNP, MG ####[facility] [place] [address] lab Director: Eder Herrera MD CMPon 02-24-2024 Albumin [Mass/Vol] 4.3 g/dL 3.5 - 5.2 g/dL [facility] Albumin/Globulin [Mass ratio] 1.2 {ratio} 1.0 - 2.5 [facility] ALP [Catalytic activity/Vol] 109 U/L 40 - 129 U/L [facility] ALT [Catalytic activity/Vol] 17 U/L 10 - 50 U/L [facility] Anion gap [Moles/Vol] 14 mmol/L 9 - 16 mmol/L [facility] AST [Catalytic activity/Vol] 17 U/L 10 - 50 U/L [facility] Bilirubin [Mass/Vol] 0.2 mg/dL 0.00 - 1.20 mg/dL [facility] Calcium [Mass/Vol] 9.6 mg/dL 8.6 - 10. 4 mg/dL [facility] Chloride [Moles/Vol] 97 mmol/L Low 98 - 10 7 mmol/L [facility] CO2 [Moles/Vol] 27 mmol/L 20 - 31 mmol/L [facility] Creatinine [Mass/Vol] 1.7 mg/dL High 0.70 - 1.20 mg/dL [facility] Est, Glom Filt Rate 44 Low - [facility] Comment on above: These results are not [...] 170 mg/dL High 74 - 99 mg/dL [facility] Potassium [Moles/Vol] 3.2 mmol/L Low 3.7 - 5.3 mmol/L [facility] Protein [Mass/Vol] 7.8 g/dL 6.6 - 8.7 g/dL [facility] Sodium [Moles/Vol] 138 mmol/L 136 - 145 mmol/L [facility] Urea nitrogen [Mass/Vol] 49 mg/dL High 8 - 23 mg/dL [facility] Urea nitrogen/Creatinine [Mass ratio] 29 mg/mg High 9 - 20 [facility] Comp Metabolic Profon 2023 Albumin [Mass/Vol] 4.3 g/dL Normal 3.5-5.2 [facility] Comment on above: Performed By: #### C P, CDP, BNP, MG ####[address] [place] [address] Lab Director: Eder Herrera MD Albumin/Glob Ratio 1.2 Normal 1.0-2.5 [facility] Comment on above: Performed By: #### C P, CDP, BNP, MG ####[facility] [place] [address] lab Director: Eder Herrera MD Alkaline Phos 109 U/L Normal 40-129 [facility] Comment on above: Performed By: #### C P, CDP, BNP, MG ####[facility] [place] [address] lab Director: Eder Herrera MD ALT [Catalytic activity/Vol] 17 U/L Normal 10-50 [facility] Comment on above: Performed By: #### C P, CDP, BNP, MG ####[address] , [place] 0463483 lab Director: Eder Herrera MD Anion gap [Moles/Vol] 14 mmol/L Normal 9-16 [facility] Comment on above: Performed By: #### C P, CDP, BNP, MG ####[address] , [facility]83 lab Director: Eder Herrera MD AST [Catalytic activity/Vol] 17 U/L Normal 10-50 [facility] Comment on above: Performed By: #### C P, CDP, BNP, MG ####[address] , [place] 2855283 lab Director: Eder Herrera MD Bilirubin [Mass/Vol] 0.2 mg/dL Normal 0.00-1.20 [facility] Comment on above: Performed By: #### C P, CDP, BNP, MG ####[address] , [place] 363[address]83 lab Director: Eder Herrera MD BUN/CRE Ratio 29 High 9-20 [facility] Comment on above: Performed By: #### C P, CDP, BNP, MG ####[address] , [facility]83 lab Director: Eder Herrera MD Calcium [Mass/Vol] 9.6 mg/dL Normal 8.6-10.4 [facility] Comment on above: Performed By: #### C P, CDP, BNP, MG ####[address] [place] [address] lab Director: Eder Herrera MD Chloride [Moles/Vol] 97 mmol/L Low 98-107 [facility] Comment on above: Performed By: #### C P, CDP, BNP, MG ####[address] , [place] 157[address]83 Lab Director: Eder Herrera MD CO2 [Moles/Vol] 27 mmol/L Normal 20-31 [facility] Comment on above: Performed By: #### C P, CDP, BNP, MG ####[address] [place] [address] Lab Director: Eder Herrera MD Creatinine [Mass/Vol] 1.7 mg/dL High 0.70-1.20 [facility] Comment on above: Performed By: #### C P, CDP, BNP, MG ####[address] [place] [address] Lab Director: Eder Herrera MD GFR/1.73 sq M.predicted among non-blacks MDRD (S/P/Bld) [Vol rate/Area] 44 mL/min/{1.73_m2} Low >60 [facility] Comment on above: Result Comment: Thes e [...] By: #### C P, CDP, BNP, MG ####[address] , [place] 8173483 lab Director: Eder Herrera MD Glucose [Mass/Vol] 170 mg/dL High 74-99 [facility] Comment on above: Performed By: #### C P, CDP, BNP, MG ####[address] , [place] 1767483 lab Director: Eder Herrera MD Potassium [Moles/Vol] 3.2 mmol/L Low 3.7-5.3 [facility] Comment on above: Performed By: #### C P, CDP, BNP, MG ####[facility] [place] [address] lab Director: Eder Herrera MD Protein [Mass/Vol] 7.8 g/dL Normal 6.6-8.7 [facility] Comment on above: Performed By: #### C P, CDP, BNP, MG ####[facility] [place] [address] lab Director: Eder Herrera MD Sodium [Moles/Vol] 138 mmol/L Normal 136-145 [facility] Comment on above: Performed By: #### C P, CDP, BNP, MG ####[address] [place] [address] lab Director: Eder Herrera MD Urea nitrogen [Mass/Vol] 49 mg/dL High 8-23 [facility] Comment on above: Performed By: #### C P, CDP, BNP, MG ####[address] [place] [address] lab Director: Eder Herrera MD Glucose, Whole Bloodon 02-23 Glucose [Mass/Vol] 187 mg/dL High 74 - 100 mg/dL [facility] Interpretation and review of laboratory results Abnormal [facility] Glucose [Mass/Vol] 187 mg/dL High 74-100 [facility] Glucose [Mass/Vol] 199 mg/dL High 74 - 100 mg/dL [facility] Interpretation and review of laboratory results Abnormal [facility] Glucose [Mass/Vol] 199 mg/dL High 74-100 [facility] Magnesiumon 02-24-2024 Magnesium [Mass/Vol] 2.0 mg/dL 1.6 - 2 .4 mg/dL [facility] Magnesium [Mass/Vol] 2.0 mg/dL Normal 1.6-2.4 [facility] Comment on above: Performed By: #### C P, CDP, BNP, MG ####[facility] [place], [place] [id number] lab Director: Eder Herrera MD Microscopic Urinalysison Bacteria LM Ql (Urine sed) TRACE Abnormal None [facility] Epithelial cells LM.HPF (Urine sed) [#/Area] 0 TO 2 [facility] RBC LM.HPF (Urine sed) [#/Area] 0 TO 2 [facility] WBC LM.HPF (Urine sed) [#/Area] 0 TO 2 [facility] No Panel Informationon 02-23 Right tib [...] changes as above. No acute osseous abnormality. [facility] RIS CONSOLIDATED EXAMINATION: 3 XRAY VIEWS OF [...] phalanx 2nd digit. Boehler's angle is maintained. [facility] RIS CONSOLIDATED Ravinder Corona MD - 02/24/2024 [...] changes as above. No acute osseous abnormality. [facility] Interpretation and review of laboratory results Abnormal [facility] Interpretation and review of laboratory results Abnormal [facility] No Panel InformationOrdered By: Ravinder Corona on 02-24-2024 [facility] Work Phone: UA w/Reflex Cultureon 2023 Bilirubin, SemiQt,Ur Negative Normal NEG [facility] Comment on above: Performed By: #### U MICAO, UAX ####[facility] [place] [address] Lab Director: Eder Herrera MD Blood, Urine Negative Normal NEG [facility] Comment on above: Performed By: #### U MICAO, UAX ####[facility] [place] [address] Lab Director: Eder Herrera MD Clarity (U) Clear Normal CLEAR [facility] Comment on above: Performed By: #### U MICAO, UAX ####[facility] [place] [address] Lab Director: Eder Herrera MD Color (U) Yellow Normal YEL [facility] Comment on above: Performed By: #### U MICAO, UAX ####[address] , [place] 77[address]783 Lab Director: Eder Herrera MD Glucose Ql (U) 3+ mg/dL Abnormal NEG [facility] Comment on above: Performed By: #### U MICAO, UAX ####[address] [place] [address] Lab Director: Eder Herrera MD Ketones Ql (U) Negative Normal NEG [facility] Comment on above: Performed By: #### U MICAO, UAX ####[address] , [place] [id number] Lab Director: Eder Herrera MD Leukocyte esterase Test strip Ql (U) Negative Normal NEG [facility] Comment on above: Performed By: #### U MICAO, UAX ####[address] [place] [address] Lab Director: Eder Herrera MD Nitrite,Ur Negative Normal NEG [facility] Comment on above: Performed By: #### U MICAO, UAX ####[address] [place] [address] Lab Director: Eder Herrera MD PH,Ur 6.0 Normal 5.0-9.0 [facility] Comment on above: Performed By: #### U MICAO, UAX ####[address] [place] [address] Lab Director: Eder Herrera MD Protein Ql (U) Negative Normal NEG [facility] Comment on above: Performed By: #### U MICAO, UAX ####[address] [place] [address] Lab Director: Eder Herrera MD Spec. Purdy,Ur <1.005 Low 1.010-1.020 [facility] Comment on above: Performed By: #### U SHAWN, UAX ####[facility] [place] [address] lab Director: Eder Herrera MD Urobilinogen,Ur Normal Normal 0.0-1.0 [facility] Comment on above: Performed By: #### U SHAWN, UAX ####[facility] [place] [address] lab Director: Eder Herrera MD Urinalysis with Reflex to Cu ltureon 02-24-2024 Bilirubin Ql (U) Negative NEGATIVE [facility] Clarity (U) Clear Clear [facility] Color (U) Yellow Yellow [facility] Glucose Test strip (U) [Mass/Vol] 3+ Abnormal NEGATIVE mg/dL [facility] Hemoglobin Auto test strip Ql (U) Negative NEGATIVE [facility] Ketones (U) [Mass/Vol] Negative NEGAT PAO mg/dL [facility] Leukocyte esterase Test strip Ql (U) Negative NEGATIVE [facility] Nitrite Ql (U) Negative NEGATIVE [facility] pH (U) 6.0 [pH] 5.0 - 9.0 [facility] Protein (U) [Mass/Vol] Negative NEGAT PAO mg/dL [facility] Specific gravity (U) [Rel density] Low 1.010 - 1.020 [facility] Urobilinogen Qn (U) Normal 0.0 - 1. 0 EU/dL [facility] Urinalysis,Microon 4 Bacteria TRACE Abnormal NONE [facility] Comment on above: Performed By: #### U SHAWN UAX ####[facility] [place] [address] lab Director: Eder Herrera MD Epithelial cells LM Ql (Urine sed) 0 TO 2 Normal 0-5 [facility] Comment on above: Performed By: #### U SHAWN UAX ####[facility] , [place] [id number] lab Director: Eder Herrera MD Urine RBC's 0 TO 2 Normal 0-2 [facility] Comment on above: Performed By: #### U MICAO, UAX ####[facility] , [place] 9[address]2383 lab Director: Eder Herrera MD Urine WBC's 0 TO 2 Normal 0-5 [facility] Comment on above: Performed By: #### U MICAO, UAX ####[facility] [place] [address] lab Director: Eder Herrera MD XR FOOT LEFT (MIN 3 VIEWS)on 02-24-2024 XR FOOT LEFT (MIN 3 VIEWS) [facility] XR FOOT RIGHT (MIN 3 VIEWS)o n 02-24-2024 XR FOOT RIGHT (MIN 3 VIEWS) Normal [facility] XR Foot - left 3 [facility] Study observation (narrative) [facility] XR Foot - right 3 [facility] Study observation (narrative) [facility] XR TIBIA FIBULA LEFT (2 VIEW S)on 02-24-2024 XR TIBIA FIBULA LEFT (2 VIEWS) [facility] XR TIBIA FIBULA RIGHT (2 VIE WS)on 02-24-2024 XR TIBIA FIBULA RIGHT (2 VIEWS) [facility] XR Tibia and Fibula - left 2 [facility] 02-24-2024 Radiology Study observation (narrative) [facility] XR Tibia and Fibula - right 2 [facility] 02-24-2024 Radiology Study observation (narrative) [facility] Basic Metabolic Panelon 09- Anion gap [Moles/Vol] 13 mmol/L 9 - 16 mmol/L [facility] Calcium [Mass/Vol] 8.9 mg/dL 8.6 - 10. 4 mg/dL [facility] Chloride [Moles/Vol] 101 mmol/L 98 - 10 7 mmol/L [facility] CO2 [Moles/Vol] 25 mmol/L 20 - 31 mmol/L [facility] Creatinine [Mass/Vol] 1.6 mg/dL High 0.70 - 1.20 mg/dL [facility] Yuliet Lancaster Rate 49 Low - [facility] Comment on above: These results are not [...] 220 mg/dL High 74 - 99 mg/dL [facility] Potassium [Moles/Vol] 4.4 mmol/L 3.7 - 5.3 mmol/L [facility] Sodium [Moles/Vol] 139 mmol/L 136 - 145 mmol/L [facility] Urea nitrogen [Mass/Vol] 33 mg/dL High 8 - 23 mg/dL [facility] Urea nitrogen/Creatinine [Mass ratio] 21 mg/mg High 9 - 20 [facility] Basic Metabolic Profon 02-08 Anion gap [Moles/Vol] 13 mmol/L Normal -16 [facility] Comment on above: Performed By: #### B MP, CDP, CRP ####[facility] [place], [place] [id number] Lab Director: Eder Herrera MD#### GLYHGB ####[facility] [id number] [place], [place] 3601908 Lab Director: Jimenez Pruett MD BUN/CRE Ratio 21 High - [facility] Comment on above: Performed By: #### B MP, CDP, CRP ####[facility] [place], [place] 3896883 Lab Director: Eder Herrera MD#### GLYHGB ####[facility] [id number] [place] [address] Lab Director: Jimenez Pruett MD Calcium [Mass/Vol] 8.9 mg/dL Normal 8.6-10.4 [facility] Comment on above: Performed By: #### B MP, CDP, CRP ####[address] [place] [address] Lab Director: Eder Herrera MD#### GLYHGB ####[place] [address] [place], [place] [phone] Director: Jimenez Pruett MD Chloride [Moles/Vol] 101 mmol/L Normal 98-107 [facility] Comment on above: Performed By: #### B MP, CDP, CRP ####[address] [place], [place] 3035783 Lab Director: Eder Herrera MD#### GLYHGB ####[address] [phone] Director: Jimenez Pruett MD CO2 [Moles/Vol] 25 mmol/L Normal 20-31 [facility] Comment on above: Performed By: #### B MP, CDP, CRP ####[address] [place] [address] Lab Director: Eder Herrera MD#### GLYHGB ####[address] [address] Lab Director: Jimenez Pruett MD Creatinine [Mass/Vol] 1.6 mg/dL High 0.70-1.20 [facility] Comment on above: Performed By: #### B MP, CDP, CRP ####[address] [place], [place] [phone] Director: Eder Herrera MD#### GLYHGB ####[facility] [place] [address] Lab Director: Jimenez Pruett MD GFR/1.73 sq M.predicted among non-blacks MDRD (S/P/Bld) [Vol rate/Area] 49 mL/min/{1.73_m2} Low >60 [facility] Comment on above: Result Comment: Thes e [...] Performed By: #### B MEHUL CDP, CRP ####[address] [place] [id number] Lab Director: Eder Herrera MD#### GLYHGB ####[address] [address] Lab Director: Jimenez Pruett MD Glucose [Mass/Vol] 220 mg/dL High 74-99 [facility] Comment on above: Performed By: #### B MEHUL CDP, CRP ####[address] [place] [phone] Lab Director: Eder Herrera MD#### GLYHGB ####[address] [phone] Lab Director: Jimenez Pruett MD Potassium [Moles/Vol] 4.4 mmol/L Normal 3.7-5.3 [facility] Comment on above: Performed By: #### B MEHUL CDP, CRP ####[address] [place] 3531283 Lab Director: Eder Herrera MD#### GLYHGB ####[address] [place] [address] Lab Director: Jimenez Pruett MD Sodium [Moles/Vol] 139 mmol/L Normal 136-145 [facility] Comment on above: Performed By: #### B MP, CDP, CRP ####[facility] , [place] 3413283 Lab Director: Eder Herrera MD#### GLYHGB ####[facility] [id number] [place], [place] 2355008 Lab Director: Jimenez Pruett MD Urea nitrogen [Mass/Vol] 33 mg/dL High 8-23 [facility] Comment on above: Performed By: #### B MP, CDP, CRP ####[address] [place], [place] 5061483 Lab Director: Eder Herrera MD#### GLYHGB ####[address] [place], [place] 4328408 Lab Director: Jimenez Pruett MD C-Reactive Proteinon 024 CRP High sensitivity method [Mass/Vol] 7.4 mg/L High 0.0 - 5.0 mg/L [facility] CRP [Mass/Vol] 7.4 mg/L High 0.0-5.0 [facility] Comment on above: Performed By: #### B MP, CDP, CRP ####[address] [place], [place] 4106983 Lab Director: Eder Herrera MD#### GLYHGB ####[facility] [id number] [place] [address] Lab Director: Jimenez Pruett MD CBC with Auto Differentialon 02-09-2024 Basophils (Bld) [#/Vol] 0.03 10*3/uL [facility] Basophils/100 WBC (Bld) 1 % 0 - 2 % [facility] Eosinophils (Bld) [#/Vol] 0.07 10*3/uL [facility] Eosinophils/100 WBC (Bld) 1 % 1 - 4 % [facility] Erythrocyte distribution width (RBC) [Ratio] 12.5 % 11.8 - 14.4 % [facility] Hematocrit (Bld) [Volume fraction] 40.5 % Low 40.7 - 50.3 % [facility] Hemoglobin (Bld) [Mass/Vol] 13.2 g/dL 13.0 - 17.0 g/dL [facility] Immature granulocytes (Bld) [#/Vol] [facility] Immature granulocytes/100 WBC (Bld) 0 % 0 [facility] Interpretation and review of laboratory results Abnormal [facility] Lymphocytes/100 WBC (Bld) 27 % 24 - 43 % [facility] Lymphocytes/100 WBC (Bld) 1.64 % [facility] MCH (RBC) [Entitic mass] 29.2 pg 25.2 - 33.5 pg [facility] MCHC (RBC) [Mass/Vol] 32.6 g/dL 28.4 - 34.8 g/dL [facility] MCV (RBC) [Entitic vol] 89.6 fL 82.6 - 102.9 fL [facility] Monocytes/100 WBC (Bld) 11 % 3 - 12 % [facility] Monocytes/100 WBC (Bld) 0.64 % [facility] Neutrophils/100 WBC (Bld) 60 % 36 - 65 % [facility] Nucleated RBC/100 WBC (Bld) [Ratio] 0.0 % 0.0 per 100 WBC [facility] Platelet mean volume (Bld) [Entitic vol] 11.2 fL 8.1 - 13.5 fL [facility] Platelets (Bld) [#/Vol] 259 10*3/uL [facility] RBC (Bld) [#/Vol] 4.52 10*6/uL 4.21 - 5.7 7 m/uL [facility] Segmented neutrophils/100 WBC (Bld) 3.61 % [facility] WBC other (Bld) [#/Vol] 6.[address] [facility] CBC with Diffon 02-09-2024 Abs. Basophil 0.03 k/uL Normal 0.00-0.20 [facility] Comment on above: Performed By: #### B MP, CDP, CRP ####[address] [place] [id number] Lab Director: Eder Herrera MD#### GLYHGB ####[address] [phone] Director: Jimenez Pruett MD Abs.Imm.Granulocyte <0.03 Normal 0.00-0.30 [facility] Comment on above: Performed By: #### B MP, CDP, CRP ####[address] [place], [place] [address] [phone] Director: Eder Herrera MD#### GLYHGB ####[address] [phone] Director: Jimenez Pruett MD Abs.Neutrophil (Seg) 3.61 k/uL Normal 1.50-8.10 [facility] Comment on above: Performed By: #### B MP, CDP, CRP ####[address] [place], [place] [address])[phone] Director: Eder Herrera MD#### GLYHGB ####[address] [phone] Director: Jimenez Pruett MD Basophils/100 WBC (Bld) 1 % Normal 0-2 M [facility] Comment on above: Performed By: #### B MP, CDP, CRP ####[address] [place] [address] Lab Director: Eder Herrera MD#### GLYHGB ####[address] [phone] Director: Jimenez Pruett MD Eosinophils (Bld) [#/Vol] 0.07 10*3/uL Normal 0.00-0.44 [facility] Comment on above: Performed By: #### B MP, CDP, CRP ####[facility] [place] , [place] [id number] Lab Director: Eder Herrera MD#### GLYHGB ####[address] [place], [place] [id number] Lab Director: Jimenez Pruett MD Eosinophils/100 WBC (Bld) 1 % Normal 1-4 [facility] Comment on above: Performed By: #### B MP, CDP, CRP ####[facility] , [place] [id number] Lab Director: Eder Herrera MD#### GLYHGB ####[address] [address] Lab Director: Jimenez Pruett MD Erythrocyte distribution width (RBC) [Ratio] 12.5 % Normal 11.8-14.4 [facility] Comment on above: Performed By: #### B MP, CDP, CRP ####[facility] [place] [address] Lab Director: Eder Herrera MD#### GLYHGB ####[address] [address] Lab Director: Jimenez Pruett MD Hematocrit (Bld) [Volume fraction] 40.5 % Low 40.7-50.3 [facility] Comment on above: Performed By: #### B MP, CDP, CRP ####[address] , [place] [phone] Lab Director: Eder Herrera MD#### GLYHGB ####[address] [place] [address] Lab Director: Jimenez Pruett MD Hemoglobin (Bld) [Mass/Vol] 13.2 g/dL Normal 13.0-17.0 [facility] Comment on above: Performed By: #### B MP, CDP, CRP ####[address] , [place] [phone] Director: Eder Herrera MD#### GLYHGB ####[address] [place], [place] [phone] Director: Jimenez Pruett MD Immature granulocytes/100 WBC (Bld) 0 % Normal 0 [facility] Comment on above: Performed By: #### B MP, CDP, CRP ####[address] [place], [place] [phone] Director: Eder Herrera MD#### GLYHGB ####[address] [place], [place] [phone] Director: Jimenez Pruett MD Lymphocytes (Bld) [#/Vol] 1.64 10*3/uL Normal 1.10-3.70 [facility] Comment on above: Performed By: #### B MP, CDP, CRP ####[address] , [place] [phone] Director: Eder Herrera MD#### GLYHGB ####[address] [phone] Director: Jimenez Pruett MD Lymphocytes/100 WBC (Bld) 27 % Normal 24-43 [facility] Comment on above: Performed By: #### B MP, CDP, CRP ####[address] [place] [phone] Director: Eder Herrera MD#### GLYHGB ####[address] [place], [place] [phone] Director: Jimenez Pruett MD MCH (RBC) [Entitic mass] 29.2 pg Normal 25.2-33.5 [facility] Comment on above: Performed By: #### B MP, CDP, CRP ####[address] [place] [address] Lab Director: Eder Herrera MD#### GLYHGB ####[address] [place], [place] [phone] Director: Jimenez Pruett MD MCHC (RBC) [Mass/Vol] 32.6 g/dL Normal 28.4-34.8 [facility] Comment on above: Performed By: #### B MP, CDP, CRP ####[address] [place], [place] 1553683 Lab Director: Eder Herrera MD#### GLYHGB ####[address] [address] Lab Director: Jimenez Pruett MD MCV (RBC) [Entitic vol] 89.6 fL Normal 82.6-102.9 [facility] Comment on above: Performed By: #### B MP, CDP, CRP ####[address] [place], [place] 365[address]183 Lab Director: Eder Herrera MD#### GLYHGB ####[address] [phone] Director: Jimenez Pruett MD Monocytes (Bld) [#/Vol] 0.64 10*3/uL Normal 0.10-1.20 [facility] Comment on above: Performed By: #### B MP, CDP, CRP ####[address] [place], [place] 7037983 Lab Director: Eder Herrera MD#### GLYHGB ####[address] [place] [address] Lab Director: Jimenez Pruett MD Monocytes/100 WBC (Bld) 11 % Normal 3-12 M [facility] Comment on above: Performed By: #### B MP, CDP, CRP ####[address] , [place] 1144983 Lab Director: Eder Herrera MD#### GLYHGB ####[address] [place] [address] Lab Director: Jimenez Pruett MD Neutrophil (Seg) 60 % Normal 36-65 [facility] Comment on above: Performed By: #### B MP, CDP, CRP ####[address] [place] [address] Lab Director: Eder Herrera MD#### GLYHGB ####[address] [address] Lab Director: Jimenez Pruett MD NRBC Automated 0.0 per 100 WBC Normal 0.0 [facility] Comment on above: Performed By: #### B MP, CDP, CRP ####[address] [place] [address] Lab Director: Eder Herrera MD#### GLYHGB ####[address] [address] Lab Director: Jimenez Pruett MD Platelet mean volume (Bld) [Entitic vol] 11.2 fL Normal 8.1-13.5 [facility] Comment on above: Performed By: #### B MP, CDP, CRP ####[address] , [place] 745[address]83 Lab Director: Eder Herrera MD#### GLYHGB ####[address] [address] Lab Director: Jimenez Pruett MD Platelets (Bld) [#/Vol] 259 10*3/uL Normal 138-453 [facility] Comment on above: Performed By: #### B MP, CDP, CRP ####[address] , [place] [phone] Lab Director: Eder Herrera MD#### GLYHGB ####[address] [place] [address] Lab Director: Jimenez Pruett MD RBC (Bld) [#/Vol] 4.52 10*6/uL Normal 4.21-5.77 [facility] Comment on above: Performed By: #### B MP, CDP, CRP ####[address] , [place] [phone] Lab Director: Eder Herrera MD#### GLYHGB ####[address] [place] [address] Lab Director: Jimenez Pruett MD WBC (Bld) [#/Vol] 6.0 10*3/uL Normal 3.5-11.3 [facility] Comment on above: Performed By: #### B MEHUL, CDP, CRP ####[address] , [place] 3845783 Lab Director: Eder Herrera MD#### GLYHGB ####[address] [place] [address] Lab Director: Jimenez Pruett MD Hemoglobin A1Con 02-09-2024 Average glucose Estimated from glycated hemoglobin (Bld) [Mass/Vol] 166 mg/dL [facility] Comment on above: The ADA and AACC rec ommend providing the estimated average glucose result to permit better patient understanding of their HBA1c result. HbA1c (Bld) [Mass fraction] 7.4 % High 4.0 - 6.0 % [facility] Interpretation and review of laboratory results Abnormal [facility] Glucose [Mass/Vol] 166 mg/dL Normal [facility] Comment on above: Result Comment: The ADA and AACC recommend providing the estimated average glucose result to permit better patient understanding of their HBA1c result. Performed By: #### B MP, CDP, CRP ####[facility] [place], [place] [phone] Lab Director: Eder Herrera MD#### GLYHGB ####[facility] [id number] [place], [place] 1219008 Lab Director: Jimenez Pruett MD HbA1c (Bld) [Mass fraction] 7.4 % High 4.0-6.0 [facility] Comment on above: Performed By: #### B MP, CDP, CRP ####[facility] [place], [place] [phone] lab Director: Eder Herrera MD#### GLYHGB ####[facility] [id number] [place], [place] [phone] lab Director: Jimenez Pruett MD No Panel Informationon 02-08 Interpretation and review of laboratory results Abnormal [facility] Basic Metabolic Panelon 07-2 Anion gap [Moles/Vol] 9 mmol/L 9 - 17 mmol/L [facility] Calcium [Mass/Vol] 9.5 mg/dL 8.6 - 10. 4 mg/dL [facility] Chloride [Moles/Vol] 109 mmol/L High 98 - 10 7 mmol/L [facility] CO2 [Moles/Vol] 22 mmol/L 20 - 31 mmol/L [facility] Creatinine [Mass/Vol] 1.6 mg/dL High 0.7 - 1.2 mg/dL [facility] Est, Glom Filt Rate 48 Low - PINF [facility] Comment on above: These results are not [...] 111 mg/dL High 70 - 99 mg/dL [facility] Interpretation and review of laboratory results Abnormal [facility] Potassium [Moles/Vol] 4.1 mmol/L 3.7 - 5.3 mmol/L [facility] Sodium [Moles/Vol] 140 mmol/L 135 - 144 mmol/L [facility] Urea nitrogen [Mass/Vol] 30 mg/dL High 8 - 23 mg/dL [facility] Basic Metabolic Profon 12-20 Anion gap [Moles/Vol] 9 mmol/L Normal 9-17 [facility] Comment on above: Performed By: #### B MP #### [place] [address] Railroad Firer: Emiliano Hurtado MD Calcium [Mass/Vol] 9.5 mg/dL Normal 8.6-10.4 [facility] Comment on above: Performed By: #### B MP #### [place] [address] Railroad Firer: Emiliano Hurtado MD Chloride [Moles/Vol] 109 mmol/L High 98-107 [facility] Comment on above: Performed By: #### B MP #### [place] [address] Railroad Firer: Emiliano Hurtado MD CO2 [Moles/Vol] 22 mmol/L Normal 20-31 [facility] Comment on above: Performed By: #### B MP #### [id number] Railroad Firer: Emiliano Hurtado MD Creatinine [Mass/Vol] 1.6 mg/dL High 0.7-1.2 [facility] Comment on above: Performed By: #### B MP #### [id number] Railroad Firer: Emiliano Hurtado MD GFR/1.73 sq M.predicted among non-blacks MDRD (S/P/Bld) [Vol rate/Area] 48 mL/min/{1.73_m2} Low >60 [facility] Comment on above: Result Comment: These results [...] secretion. Performed By: #### B MP #### [place] [address] Railroad Firer: Emiliano Hurtado MD Glucose [Mass/Vol] 111 mg/dL High 70-99 [facility] Comment on above: Performed By: #### B MP #### [place] [address] Railroad Firer: Emiliano Hurtado MD Potassium [Moles/Vol] 4.1 mmol/L Normal 3.7-5.3 [facility] Comment on above: Performed By: #### B MP #### [place] [address] Railroad Firer: Emiliano Hurtado MD Sodium [Moles/Vol] 140 mmol/L Normal 135-144 [facility] Comment on above: Performed By: #### B MP #### [place] [address] Railroad Firer: Emiliano Hurtado MD Urea nitrogen [Mass/Vol] 30 mg/dL High 8-23 [facility] Comment on above: Performed By: #### B MP #### [address] [place] [address] Railroad Firer: Emiliano Hurtado MD Basic Metabolic Panelon 10-23 Anion gap [Moles/Vol] 10 mmol/L 9 - 17 mmol/L [facility] Calcium [Mass/Vol] 10.1 mg/dL 8.6 - 10. 4 mg/dL [facility] Chloride [Moles/Vol] 99 mmol/L 98 - 10 7 mmol/L [facility] CO2 [Moles/Vol] 28 mmol/L 20 - 31 mmol/L [facility] Creatinine [Mass/Vol] 1.6 mg/dL High 0.7 - 1.2 mg/dL [facility] EstYuliett Rate 48 Low - [facility] Comment on above: These results are not [...] 132 mg/dL High 70 - 99 mg/dL [facility] Potassium [Moles/Vol] 4.7 mmol/L 3.7 - 5.3 mmol/L [facility] Sodium [Moles/Vol] 137 mmol/L 135 - 144 mmol/L [facility] Urea nitrogen [Mass/Vol] 29 mg/dL High 8 - 23 mg/dL [facility] Urea nitrogen/Creatinine [Mass ratio] 18 mg/mg 9 - 20 [facility] Brain Natriuretic Peptideon 11-11-2023 Natriuretic peptide B (Bld) [Mass/Vol] 681 pg/mL High NINF - 300 pg/mL [facility] Comment on above: An age-independent cutoff point of 300 pg/ml has a 98% negative predictive value excluding acute heart failure. CBC with Auto Differentialon 11-11-2023 Basophils (Bld) [#/Vol] 0.08 10*3/uL [facility] Basophils/100 WBC (Bld) 1 % 0 - 2 % B ON [facility] Eosinophils (Bld) [#/Vol] 0.07 10*3/uL [facility] Eosinophils/100 WBC (Bld) 1 % 1 - 4 % [facility] Erythrocyte distribution width (RBC) [Ratio] 12.2 % 11.8 - 14.4 % [facility] Hematocrit (Bld) [Volume fraction] 38.3 % Low 40.7 - 50.3 % [facility] Hemoglobin (Bld) [Mass/Vol] 12.6 g/dL Low 13.0 - 17.0 g/dL [facility] Immature granulocytes (Bld) [#/Vol] 0.03 10*3/uL [facility] Immature granulocytes/100 WBC (Bld) 0 % 0 [facility] Interpretation and review of laboratory results Abnormal [facility] Lymphocytes/100 WBC (Bld) 28 % 24 - 43 % [facility] Lymphocytes/100 WBC (Bld) 1.92 % [facility] MCH (RBC) [Entitic mass] 29.5 pg 25.2 - 33.5 pg [facility] MCHC (RBC) [Mass/Vol] 32.9 g/dL 28.4 - 34.8 g/dL [facility] MCV (RBC) [Entitic vol] 89.7 fL 82.6 - 102.9 fL [facility] Monocytes/100 WBC (Bld) 10 % 3 - 12 % [facility] Monocytes/100 WBC (Bld) 0.69 % [facility] Neutrophils/100 WBC (Bld) 60 % 36 - 65 % [facility] Nucleated RBC/100 WBC (Bld) [Ratio] 0.0 % 0.0 per 100 WBC [facility] Platelet mean volume (Bld) [Entitic vol] 10.7 fL 8.1 - 13.5 fL [facility] Platelets (Bld) [#/Vol] 406 10*3/uL [facility] RBC (Bld) [#/Vol] 4.27 10*6/uL 4.21 - 5.7 7 m/uL [facility] Segmented neutrophils/100 WBC (Bld) 4.06 % [facility] WBC other (Bld) [#/Vol] 6.[address] [facility] Comprehensive Metabolic Pane julio césar 11-11-2023 Albumin [Mass/Vol] 3.8 g/dL 3.5 - 5.2 g/dL [facility] Albumin/Globulin [Mass ratio] 1.1 {ratio} 1.0 - 2.5 [facility] ALP [Catalytic activity/Vol] 86 U/L 40 - 129 U/L [facility] ALT [Catalytic activity/Vol] 19 U/L 5 - 41 U/L [facility] Anion gap [Moles/Vol] 10 mmol/L 9 - 17 mmol/L [facility] AST [Catalytic activity/Vol] 15 U/L NINF - 40 U/L [facility] Bilirubin [Mass/Vol] 0.2 mg/dL Low 0.3 - 1 .2 mg/dL [facility] Calcium [Mass/Vol] 10.1 mg/dL 8.6 - 10. 4 mg/dL [facility] Chloride [Moles/Vol] 101 mmol/L 98 - 10 7 mmol/L [facility] CO2 [Moles/Vol] 27 mmol/L 20 - 31 mmol/L [facility] Creatinine [Mass/Vol] 1.7 mg/dL High 0.7 - 1.2 mg/dL [facility] Est, Glom Filt Rate 44 Low - [facility] Comment on above: These results are not [...] 130 mg/dL High 70 - 99 mg/dL [facility] Interpretation and review of laboratory results Abnormal [facility] Potassium [Moles/Vol] 4.4 mmol/L 3.7 - 5.3 mmol/L [facility] [employer] Protein [Mass/Vol] 7.2 g/dL 6.4 - 8.3 g/dL [facility] Sodium [Moles/Vol] 138 mmol/L 135 - 144 mmol/L [facility] Urea nitrogen [Mass/Vol] 29 mg/dL High 8 - 23 mg/dL [facility] [employer] Urea nitrogen/Creatinine [Mass ratio] 17 mg/mg 9 - 20 [facility] [employer] Hemoglobin A1Con 11-11-2023 Average glucose Estimated from glycated hemoglobin (Bld) [Mass/Vol] 177 mg/dL [facility] Comment on above: The ADA and AACC rec ommend providing the estimated average glucose result to permit better patient understanding of their HBA1c result. HbA1c (Bld) [Mass fraction] 7.8 % High 4.0 - 6.0 % [facility] Interpretation and review of laboratory results Abnormal [facility] [employer] Lipid Panelon 11-11-2023 Cholesterol [Mass/Vol] 146 mg/dL 0 - 1 99 mg/dL [facility] Comment on above: Cholesterol Guidelines: <200 Desirable 200-240 Borderline >240 Undesirable Cholesterol in HDL [Mass/Vol] 24 mg/dL Low 40 - PINF mg/dL [facility] Comment on above: HDL Guidelines: <40 Undesirable 40-59 Borderline >59 Desirable Cholesterol in LDL [Mass/Vol] 78 mg/dL 0 - 100 mg/dL [facility] Comment on above: LDL Guidelines: <100 Desirable 100-129 Near to/above Desirable 130-159 Borderline >159 Undesirable Direct (measured) LDL and calculated LDL are not interchangeable tests. Cholesterol in VLDL [Mass/Vol] 44 mg/dL [facility] Cholesterol.total/Shi sterol in HDL [Mass ratio] 6.0 {ratio} [facility] [employer] [facility] Interpretation and review of laboratory results Abnormal [facility] Triglyceride [Mass/Vol] 222 mg/dL High NINF - 150 mg/dL [facility] Comment on above: Triglyceride Guidelines: <150 Desirable 150-199 Borderline 200-499 High >499 Very high Based on AHA Guidelines for fasting triglyceride, February 2012. [facility] No Panel Informationon 11-10 Interpretation and review of laboratory results Abnormal [facility] Basic Metabolic Panelon 10-23 Anion gap [Moles/Vol] 11 mmol/L 9 - 17 mmol/L [facility] Calcium [Mass/Vol] 9.9 mg/dL 8.6 - 10. 4 mg/dL [facility] Chloride [Moles/Vol] 101 mmol/L 98 - 10 7 mmol/L [facility] CO2 [Moles/Vol] 22 mmol/L 20 - 31 mmol/L [facility] Creatinine [Mass/Vol] 1.4 mg/dL High 0.7 - 1.2 mg/dL [facility] Est, Yuliet Colónt Rate 56 Low - [facility] Comment on above: These results are not [...] 224 mg/dL High 70 - 99 mg/dL [facility] Potassium [Moles/Vol] 4.7 mmol/L 3.7 - 5.3 mmol/L [facility] Sodium [Moles/Vol] 134 mmol/L Low 135 - 144 mmol/L [facility] Urea nitrogen [Mass/Vol] 25 mg/dL High 8 - 23 mg/dL [facility] Urea nitrogen/Creatinine [Mass ratio] 18 mg/mg 9 - 20 [facility] Brain Natriuretic Peptideon 11-03-2023 Natriuretic peptide B (Bld) [Mass/Vol] 2818 pg/mL High NINF - 300 pg/mL [facility] Comment on above: An age-independent cutoff point of 300 pg/ml has a 98% negative predictive value excluding acute heart failure. Glucose, Whole Bloodon 11-02 Glucose [Mass/Vol] 196 mg/dL High 74 - 100 mg/dL [facility] Interpretation and review of laboratory results Abnormal [facility] No Panel Informationon 11-02 Interpretation and review of laboratory results Abnormal [facility] Portable XR Chest AP single viewon 11-03-2023 Mild generalized ischial prominence favoring vascular congestion. Platelike subsegmental atelectasis left costophrenic angle. No focal consolidation. [facility] RIS CONSOLIDATED EXAMINATION: ONE XRAY VIEW OF THE CHEST 11/03/2023 8:18 am COMPARISON: 05/07/2023 HISTORY: ORDERING SYSTEM PROVIDED HISTORY: shortness of breath TECHNOLOGIST PROVIDED HISTORY: shortness of breath FINDINGS: Normal cardiomediastinal silhouette. Platelike subsegmental atelectasis left costophrenic angle. Mild generalized interstitial prominence likely from mild vascular congestion. No focal consolidation. No pleural effusion or pneumothorax. No acute bony abnormality. [facility] RIS CONSOLIDATED Adrian Gonzalez MD - 11/03/2023 [...] atelectasis left costophrenic angle. No focal consolidation. [facility] Radiology Study observation (narrative) [facility] Portable XR Chest AP single viewOrdered By: Adrian Gonzalez on 11-03-2023 [facility] Work Phone: Basic Metabolic Panelon 07-23 Anion gap [Moles/Vol] 10 mmol/L 9 - 17 mmol/L [facility] Calcium [Mass/Vol] 9.1 mg/dL 8.6 - 10. 4 mg/dL [facility] Chloride [Moles/Vol] 102 mmol/L 98 - 10 7 mmol/L [facility] CO2 [Moles/Vol] 28 mmol/L 20 - 31 mmol/L [facility] Creatinine [Mass/Vol] 1.5 mg/dL High 0.7 - 1.2 mg/dL [facility] GFR/1.73 sq M.predicted MDRD (S/P/Bld) [Vol rate/Area] 52 mL/min/{1.73_m2} Low - PINF [facility] Comment on above: These results are [...] 182 mg/dL High 70 - 99 mg/dL [facility] Interpretation and review of laboratory results Abnormal [facility] Potassium [Moles/Vol] 4.8 mmol/L 3.7 - 5.3 mmol/L [facility] Sodium [Moles/Vol] 140 mmol/L 135 - 144 mmol/L [facility] Urea nitrogen [Mass/Vol] 30 mg/dL High 8 - 23 mg/dL [facility] Urea nitrogen/Creatinine [Mass ratio] 20 mg/mg 9 - 20 [facility] CBCon 06-30-2023 Erythrocyte distribution width (RBC) [Ratio] 11.8 % 11.8 - 14.4 % [facility] Hematocrit (Bld) [Volume fraction] 39.1 % Low 40.7 - 50.3 % [facility] Hemoglobin (Bld) [Mass/Vol] 12.8 g/dL Low 13.0 - 17.0 g/dL [facility] Interpretation and review of laboratory results Abnormal [facility] MCH (RBC) [Entitic mass] 29.6 pg 25.2 - 33.5 pg [facility] MCHC (RBC) [Mass/Vol] 32.7 g/dL 28.4 - 34.8 g/dL [facility] MCV (RBC) [Entitic vol] 90.5 fL 82.6 - 102.9 fL [facility] Nucleated RBC/100 WBC (Bld) [Ratio] 0.0 % 0.0 per 100 WBC [facility] Platelet mean volume (Bld) [Entitic vol] 11.0 fL 8.1 - 13.5 fL [facility] Platelets (Bld) [#/Vol] 264 10*3/uL [facility] RBC (Bld) [#/Vol] 4.32 10*6/uL 4.21 - 5.7 7 m/uL [facility] WBC other (Bld) [#/Vol] 5.[address] [facility] Magnesiumon 06-30-2023 Magnesium [Mass/Vol] 1.9 mg/dL 1.6 - 2 .6 mg/dL [facility] Microscopic Urinalysison Epithelial cells LM.HPF (Urine sed) [#/Area] 0 TO 2 [facility] RBC LM.HPF (Urine sed) [#/Area] 0 TO 2 [facility] WBC LM.HPF (Urine sed) [#/Area] 0 TO 2 [facility] No Panel Informationon 06-30 [facility] PTH, [place] 06-30-2023 Interpretation and review of laboratory results Abnormal [facility] Parathyrin.intact [Mass/Vol] 117.9 pg/mL High 14.0 - 72.0 pg/mL [facility] Comment on above: SAMPLES FROM PATIENT S ROUTINELY RECEIVING HIGH DOSE BIOTIN THERAPY MAY SHOW FALSELY DEPRESSED RESULTS. ADDITIONAL INFORMATION MAY BE REQUIRED FOR DIAGNOSIS. [facility] Protein / creatinine ratio, urineon 06-30-2023 Creatinine (U) [Mass/Vol] 89.0 mg/dL 39.0 - 259.0 mg/dL [facility] Interpretation and review of laboratory results Abnormal [facility] Protein (U) [Mass/Vol] 48 mg/dL [facility] Comment on above: No normal range esta blished. Urine Total Protein Creatinine Ratio 0.54 High 0.00 - 0.20 [facility] Renal Function Panelon 06-30 Albumin [Mass/Vol] 4.0 g/dL 3.5 - 5.2 g/dL [facility] Anion gap [Moles/Vol] 10 mmol/L 9 - 17 mmol/L [facility] Calcium [Mass/Vol] 8.7 mg/dL 8.6 - 10. 4 mg/dL [facility] Chloride [Moles/Vol] 100 mmol/L 98 - 10 7 mmol/L [facility] CO2 [Moles/Vol] 25 mmol/L 20 - 31 mmol/L [facility] Creatinine [Mass/Vol] 1.4 mg/dL High 0.7 - 1.2 mg/dL [facility] GFR/1.73 sq M.predicted MDRD (S/P/Bld) [Vol rate/Area] 56 mL/min/{1.73_m2} Low - PINF [facility] Comment on above: These results are [...] 230 mg/dL High 70 - 99 mg/dL [facility] Interpretation and review of laboratory results Abnormal [facility] Phosphate [Mass/Vol] 2.5 mg/dL 2.5 - 4 .5 mg/dL [facility] Potassium [Moles/Vol] 4.3 mmol/L 3.7 - 5.3 mmol/L [facility] Sodium [Moles/Vol] 135 mmol/L 135 - 144 mmol/L [facility] Urea nitrogen [Mass/Vol] 33 mg/dL High 8 - 23 mg/dL [facility] Urea nitrogen/Creatinine [Mass ratio] 24 mg/mg High 9 - 20 [facility] Uric Acidon 06-30-2023 Urate [Mass/Vol] 6.8 mg/dL 3.4 - 7.0 mg/dL [facility] Urinalysis with Reflex to Cu ltureon 06-30-2023 Bilirubin Ql (U) [facility] Clarity (U) Clear Clear [facility] Color (U) Yellow Yellow [facility] Glucose Test strip (U) [Mass/Vol] 2+ Abnormal NEGATIVE mg/dL [facility] Hemoglobin Auto test strip Ql (U) TRACE Abnormal NEGATIVE [facility] Interpretation and review of laboratory results Abnormal [facility] Ketones (U) [Mass/Vol] Negative NEGAT PAO mg/dL [facility] Leukocyte esterase Test strip Ql (U) Negative NEGATIVE [facility] Nitrite Ql (U) Negative NEGATIVE [facility] pH (U) 6.0 [pH] 5.0 - 9.0 [facility] Protein (U) [Mass/Vol] 1+ Abnormal NEGAT PAO mg/dL [facility] Specific gravity (U) [Rel density] 1.015 1.010 - 1.020 [facility] Urobilinogen Qn (U) Normal 0.0 - 1. 0 EU/dL [facility] [place] PARATHYORID W SPECTon No parathyroid adenoma localized. [facility] EXAMINATION: NUCLEAR MEDICINE PARATHYROID SCINTIGRAPHY WITH [...] focal areas of abnormal radiotracer activity identified. [facility] Carmen Carr MD - 01/15/2023 EXAMINATION: [...] activity identified. IMPRESSION: No parathyroid adenoma localized. [facility] Radiology Study observation (narrative) [facility] [place] PARATHYORID W SPECTOrdere d By: Carmen Carr on 01-15-2023 [facility] Work Phone: XR CHEST (2 VW)on 12-22-2022 No acute process. [facility] EXAMINATION: TWO XRAY VIEWS OF THE CHEST 12/22/2022 11:10 am COMPARISON: 06/05/2021 HISTORY: ORDERING SYSTEM PROVIDED HISTORY: Dyspnea on exertion TECHNOLOGIST PROVIDED HISTORY: dyspnea on exertion FINDINGS: The lungs are without acute focal process. There is no effusion or pneumothorax. The cardiomediastinal silhouette is stable. The osseous structures are stable. [facility] Francois De La Cruz MD - 12/22/2022 EXAMINATION: TWO XRAY VIEWS OF THE CHEST 12/22/2022 11:10 am COMPARISON: 06/05/2021 HISTORY: ORDERING SYSTEM PROVIDED HISTORY: Dyspnea on exertion TECHNOLOGIST PROVIDED HISTORY: dyspnea on exertion FINDINGS: The lungs are without acute focal process. There is no effusion or pneumothorax. The cardiomediastinal silhouette is stable. The osseous structures are stable. IMPRESSION: No acute process. [facility] Radiology Study observation (narrative) [facility] [employer] [facility] Xenapto XR CHEST (2 VW)Ordered By: Selena De La Cruz on 12-22-2022 [facility] Work Phone: A1C with Estimated Average Yifan rodríguez 11-06-2022 Glucose [Mass/Vol] 166 mg/dL Normal [facility] Comment on above: Result Comment: PERF ORMED BY: [place] [address] PATHOLOGIST [employer] WORK[employer] YURI ORTA M.D. Performed By: #### A 1C [facility] eA #### [address] HbA1c (Bld) [Mass fraction] 7.4 % High 4.3-5.6 [facility] Comment on above: Result Comment: Incr eased risk for diabetes: 5.7 - 6.4 diabetes: >6.4 glycemic control for adults with diabetes: <7.0 Performed By: #### A 1C [facility] eA #### [address] CBC AUTO DIFFon 10-20-2022 BASO # 0.0 103/ul Normal 0.0-0.1 [facility] Comment on above: Performed By: #### C BC #### [facility] [address] [place] [address] Dr. Robert Almendarez Basophils/100 WBC (Bld) 0.6 % Normal 0.2-2.0 [facility] Comment on above: Performed By: #### C BC #### [facility] [address] [place] [address] Dr. Robert Almendarez EO # 0.1 103/ul Normal 0.0-0.7 [facility] Comment on above: Performed By: #### C BC #### [facility] [address] [place] [address] Dr. Robert Almendarez Eosinophils/100 WBC (Bld) 1.4 % Normal 0.9-7.0 [facility] Comment on above: Performed By: #### C BC #### [facility] [address] [place] [address] Dr. Robert Almendarez Erythrocyte distribution width (RBC) [Ratio] 11.7 % Normal 11.0-15.0 [facility] Comment on above: Performed By: #### C BC #### [facility] [address] [place] [address] Dr. Robert Almendarez Hematocrit (Bld) [Volume fraction] 38.4 % Critically low 42.0-54.0 [facility] Comment on above: Performed By: #### C BC #### [facility] [address] [place] [address] Dr. Robert Almendarez Hemoglobin (Bld) [Mass/Vol] 12.7 g/dL Critically low 14.0-18.0 [facility] Comment on above: Performed By: #### C BC #### [facility] [address] [place] [address] Dr. Robert Almendarez IG # 0.02 10e3/ul Normal 0.00-0.03 [facility] Comment on above: Performed By: #### C BC #### [facility] [address] [place] [address] Dr. Robert Almendarez IG % 0.3 % Normal 0.0-0.5 [facility] Comment on above: Performed By: #### C BC #### [facility] [address] [place] [address] Dr. Robert Almendarez LYMPH # 1.4 103/ul Normal 1.2-3.8 [facility] Comment on above: Performed By: #### C BC #### [facility] [address] [place] [address] Dr. Robert Almendarez Lymphocytes/100 WBC (Bld) 21.2 % Normal 20.5-60.0 [facility] Comment on above: Performed By: #### C BC #### [facility] [address] [place] [address] Dr. Robert Almendarez MANUAL DIFF REQ NO Normal [facility] Comment on above: Performed By: #### C BC #### [facility] [address] [place] [address] Dr. Robert Almendarez MCH (RBC) [Entitic mass] 29.3 pg Normal 25.9-34.0 [facility] Comment on above: Performed By: #### C BC #### [facility] [address] [place] [address] Dr. Robert Almendarez MCHC (RBC) [Mass/Vol] 33.1 g/dL Normal 29.9-35.2 [facility] Comment on above: Performed By: #### C BC #### [facility] [address] [place] [address] Dr. Robert Almendarez MCV (RBC) [Entitic vol] 88.7 fL Normal 80.0-94.0 [facility] Comment on above: Performed By: #### C BC #### [facility] [address] [place] [address] Dr. Robert Almendarez MONO # 0.5 103/ul Normal 0.3-0.8 [facility] Comment on above: Performed By: #### C BC #### [facility] [address] [place] [address] Dr. Robert Almendarez Monocytes/100 WBC (Bld) 7.1 % Normal 1.7-12.0 [facility] Comment on above: Performed By: #### C BC #### [facility] [address] [place] [address] Dr. Robert Almendarez NEUT # 4.6 103/ul Normal 1.4-6.5 [facility] Comment on above: Performed By: #### C BC #### [facility] [address] [place] [address] Dr. Robert Almendarez Neutrophils/100 WBC (Bld) 69.4 % Normal 43.0-75.0 [facility] Comment on above: Performed By: #### C BC #### [facility] [address] [place] [address] Dr. Robert Almendarez Platelet mean volume (Bld) [Entitic vol] 10.7 fL Normal 9.5-13.5 [facility] Comment on above: Performed By: #### C BC #### [facility] [address] [address] [address] Robert Almendarez PLT 232 103/ul Normal 150-450 [facility] Comment on above: Performed By: #### C BC #### [facility] [address] [address] [address] Robert Almendarez RBC 4.33 106/ul Critically low 4.70-6.10 [facility] Comment on above: Performed By: #### C BC #### [facility] [id number] Robert Almendarez WBC 6.7 103/ul Normal 4.0-11.0 [facility] Comment on above: Performed By: #### C BC #### [facility] [address] [place] [address] ABD/PELVIS WO CONon [...] REBEKAH THOMPSON Date: 2022-10-20 14:47 Normal [facility] CULTURE URINEon 10-20-2022 CULTURE URINE Culture Observations : NO GROWTH. Normal [facility] Comment on above: Performed By: #### P T, PTT #### [facility] [address] [place] [address] Dr. Robert Almendarez ER URINE PROFILEon 3 Bilirubin Ql (U) Negative Normal NEGATIVE [facility] Comment on above: Performed By: #### Fallon YAÑEZ UMICRO #### [facility] [address] [place] [address] Dr. Robert Almendarez Clarity (U) SL CLOUDY Abnormal CLEAR [facility] Comment on above: Performed By: #### Fallon YAÑEZ UMICRO #### [facility] [address] [place] [address] Dr. Robert Almendarez Color (U) RED Abnormal YELLOW [facility] Comment on above: Performed By: #### Fallon YAÑEZ UMICRO #### [facility] [address] [place] [address] Dr. Robert Almendarez ERUJazmine A micrscopic examination will be performed if indicated. Normal [facility] Comment on above: Performed By: #### Fallon YAÑEZ UMICRO #### [facility] [address] [place] [address] Dr. Robert Almendarez Glucose Ql (U) Negative Normal NEGATIVE [facility] Comment on above: Performed By: #### Fallon YAÑEZ UMICRO #### [facility] [address] [place] [address] Dr. Robert Almendarez Hemoglobin Ql (U) LARGE Abnormal NEGATIVE [facility] Comment on above: Performed By: #### Fallon YAÑEZ UMICRO #### [facility] [address] [place] [address] Dr. Robert Almendarez Ketones Ql (U) Negative Normal NEGATIVE [facility] Comment on above: Performed By: #### Fallon YAÑEZ UMICRO #### [facility] [address] [place] [address] Dr. Robert Almendarez LEUKOCYTES MODERATE Abnormal NEGATIVE [facility] Comment on above: Performed By: #### Fallon YAÑEZ UMICRO #### [facility] [address] [place] [address] Dr. Robert Almendarez Nitrite Ql (U) Unable to perform testing due to color interference. Abnormal NEGATIVE [facility] Comment on above: Performed By: #### Fallon YAÑEZ UMICRO #### [facility] [address] [place] [address] Dr. Robert Almendarez pH (U) 5.0 [pH] Normal 5-9 [facility] Comment on above: Performed By: #### Fallon YAÑEZ UMICRO #### [facility] [address] [place] [address] Dr. Robert Almendarez Protein (U) [Mass/Vol] 300 mg/dL Abnormal NEGAT PAO/ TRACE [facility] Comment on above: Performed By: #### Fallon YAÑEZ UMICRO #### [facility] [address] [place] [address] Dr. Robert Almendarez SPEC GRAVITY 1.015 Normal 1.005-<=1.0 25 [facility] Comment on above: Performed By: #### Fallon YAÑEZ UMICRO #### [facility] [address] [place] [address] Dr. Robert Almendarez UR MICRO IND INDICATED Normal [facility] Comment on above: Performed By: #### Fallon YAÑEZ UMICRO #### [facility] [address] [place] [address] Dr. Robert Almendarez Urobilinogen Qn (U) 1.0 {Fabiana'U}/dL Normal 0.2 - 1. 0 [facility] Comment on above: Performed By: #### E MARIA C YAÑEZ #### [facility] [address] [address] [address] Robert Almendarez PROF 14(COMP METB)on 023 Albumin [Mass/Vol] 3.5 g/dL Normal 3.4-5.0 [facility] Comment on above: Performed By: #### C MP #### [facility] [address] [place] [address] Dr. Robret Almendarez Albumin/Globulin [Mass ratio] 0.9 {ratio} Normal [facility] Comment on above: Performed By: #### C MP #### [facility] [address] [place] [address] Dr. Robert Almendarez ALP [Catalytic activity/Vol] 78 U/L Normal 46-116 [facility] Comment on above: Performed By: #### C MP #### [facility] [address] [place] [address] Dr. Robert Almendarez ALT [Catalytic activity/Vol] 28 U/L Normal 16-63 [facility] Comment on above: Performed By: #### C MP #### [facility] [address] [place] [address] Dr. Robert Almendarez Anion gap [Moles/Vol] 14.1 mmol/L Normal [facility] Comment on above: Performed By: #### C MP #### [facility] [address] [place] [address] Dr. Robert Almendarez AST [Catalytic activity/Vol] 15 U/L Normal 15-37 [facility] Comment on above: Performed By: #### C MP #### [facility] [address] [place] [address] Dr. Robert Almendarez Bilirubin [Mass/Vol] 0.4 mg/dL Normal 0.2-1.0 [facility] Comment on above: Performed By: #### C MP #### [facility] [address] [place] [address] Dr. Robert Almendarez Calcium [Mass/Vol] 10.6 mg/dL Critically high 8.5-10.1 [facility] Comment on above: Performed By: #### C MP #### [facility] [address] [address] [address] Robert Almendarez Chloride [Moles/Vol] 100 mmol/L Normal 98-107 [facility] Comment on above: Performed By: #### C MP #### [facility] [address] [address] [address] Robert Almendarez CO2 [Moles/Vol] 25.4 mmol/L Normal 21.0-32.0 [facility] Comment on above: Performed By: #### C MP #### [facility] [address] [address] [address] Robert Almendarez Creatinine [Mass/Vol] 1.81 mg/dL Critically high 0.70-1.30 [facility] Comment on above: Performed By: #### C MP #### [facility] [address] [place] [address] Dr. Robert Almendarez EGFR-AF KAZAKH 46 mL/min/1.73m2 Critically low >=60 [facility] Comment on above: Performed By: #### C MP #### [facility] [address] [address] [address] Robert Almendarez EGFR-NON AF KAZAKH 38 mL/min/1.73m2 Critically low >=60 [facility] Comment on above: Performed By: #### C MP #### [facility] [address] [place] [address] Dr. Robert Almendarez Globulin (S) [Mass/Vol] 4.0 g/dL Normal [facility] Comment on above: Performed By: #### C MP #### [facility] [address] [address] [address] Robert Almendarez Glucose [Mass/Vol] 177 mg/dL Critically high 74-106 [facility] Comment on above: Performed By: #### C MP #### [facility] [address] [address] [address] Robert Almendarez Potassium [Moles/Vol] 4.5 mmol/L Normal 3.5-5.1 [facility] Comment on above: Performed By: #### C MP #### [facility] [address] [address] [address] Robert Almendarez Protein [Mass/Vol] 7.5 g/dL Normal 6.4-8.2 [facility] Comment on above: Performed By: #### C MP #### [facility] [address] [address] [address] Robert Almendarez Sodium [Moles/Vol] 135 mmol/L Critically low 136-145 [facility] Comment on above: Performed By: #### C MP #### [facility] [address] [address] [address] Robert Almendarez Urea nitrogen [Mass/Vol] 32.0 mg/dL Critically high 7.0-18.0 [facility] Comment on above: Performed By: #### C MP #### [facility] [address] [place] [address] Dr. Robert Almendarez Urea nitrogen/Creatinine [Mass ratio] 17.7 mg/mg Normal [facility] Comment on above: Performed By: #### C MP #### [facility] [address] [place] [address] Dr. Robert Almendarez TYPE AND SCREENon 10-20-2022 TYPE AND SCREEN Negative Normal [facility] Comment on above: Performed By: #### P T, PTT #### [facility] [address] [place] [address] Dr. Robert Almendarez URINE MICROSCOPIC ONLYon BACTERIA NONE SEEN Normal NONE SEEN [facility] Comment on above: Performed By: #### Fallon YAÑEZ UMICRO #### [facility] [address] [place] [address] Dr. Robert Almendarez Bacteria identified Cx Nom (U) NOT INDICATED Normal [facility] Comment on above: Performed By: #### E OTILIO UMICRO #### [facility] [address] [place] [address] Dr. Robert Almendarez CAST NONE SEEN Normal NONE SEEN [facility] Comment on above: Performed By: #### Fallon YAÑEZ UMICRO #### [facility] [address] [place] [address] Dr. Robert Almendarez Crystals LM Nom (Urine sed) NONE SEEN Normal NONE SEEN [facility] Comment on above: Performed By: #### JOSE HAYESRO #### [facility] [address] [place] [address] Dr. Robert Almendarez Epithelial cells LM Ql (Urine sed) NONE SEEN Normal NONE SEEN /RARE [facility] Comment on above: Performed By: #### Fallon YAÑEZ UMICRO #### [facility] [address] [place] [address] Dr. Robert Almendarez MUCOUS NONE SEEN Normal NONE SEEN [facility] Comment on above: Performed By: #### Fallon YAÑEZ UMFRANCESRO #### [facility] [address] [place] [address] Dr. Robert Almendarez RBC 75-100 Abnormal 0-2 [facility] Comment on above: Performed By: #### JOSE HAYESRO #### [facility] [address] [place] [address] Dr. Robert Almendarez WBC 10-20 Abnormal NONE SEEN [facility] Comment on above: Performed By: #### JOSE HAYESRO #### [facility] [address] [place] [address] Dr. Robert Almendarez BNPon 10-13-2022 Natriuretic peptide B (Bld) [Mass/Vol] 473.0 pg/mL Normal <=900.0 [facility] Comment on above: Performed By: #### P T, PTT #### [facility] [address] [place] [address] Dr. Robert Almendarez CARDIAC FLOYD ADMITon 023 CK [Catalytic activity/Vol] 60 U/L Normal 39-308 [facility] Comment on above: Performed By: #### P T, PTT #### [facility] [address] [place] [address] Dr. Robert Almendarez CK.MB [Mass/Vol] 1.74 ng/mL Normal <=3.60 [facility] Comment on above: Performed By: #### P T, PTT #### [facility] [address] [place] [address] Dr. Robert Almendarez HSTROP 29.8 pg/mL Normal 4.0-76.1 [facility] Comment on above: Result Comment: CUT- OFF POINTS HAVE BEEN ESTABLISHED BASED ON THE FOURTH UNIVERSAL DEFINITIONS OF MYOCARDIAL INFARCTION. THE UPPER REFERENCE LIMIT (URL) OF TROPONIN, DEFINED THE 99TH PERCENTILE OF cTnI DISTRIBUTION IN A REFERENCE POPULATION, HAS BEEN CONFIRMED THE DECISION THRESHOLD FOR OR DIAGNOSIS. Performed By: #### P T, PTT #### [facility] [address] [address] [address] Robert Almendarez JERMAN 70 ng/mL Normal 16-96 [facility] Comment on above: Performed By: #### P T, PTT #### [facility] [address] [place] [address] Dr. Robert Almendarez CBC AUTO DIFFon 10-13-2022 BASO # 0.0 103/ul Normal 0.0-0.1 [facility] Comment on above: Performed By: #### C BC #### [facility] [address] [place] [address] Dr. Robert Almendarez Basophils/100 WBC (Bld) 0.7 % Normal 0.2-2.0 [facility] Comment on above: Performed By: #### C BC #### [facility] [address] [place] [address] Dr. Robert Almendarez EO # 0.1 103/ul Normal 0.0-0.7 [facility] Comment on above: Performed By: #### C BC #### [facility] [address] [address] [address] Robert Almendarez Eosinophils/100 WBC (Bld) 1.1 % Normal 0.9-7.0 [facility] Comment on above: Performed By: #### C BC #### [facility] [address] [place] [address] Dr. Robert Almendarez Erythrocyte distribution width (RBC) [Ratio] 11.7 % Normal 11.0-15.0 [facility] Comment on above: Performed By: #### C BC #### [facility] [address] [place] [address] Dr. Robert Almendarez Hematocrit (Bld) [Volume fraction] 39.0 % Critically low 42.0-54.0 [facility] Comment on above: Performed By: #### C BC #### [facility] [address] [place] [address] Dr. Robert Almendarez Hemoglobin (Bld) [Mass/Vol] 13.1 g/dL Critically low 14.0-18.0 [facility] Comment on above: Performed By: #### C BC #### [facility] [address] [place] [address] Dr. Robert Almendarez IG # 0.02 10e3/ul Normal 0.00-0.03 [facility] Comment on above: Performed By: #### C BC #### [facility] [address] [place] [address] Dr. Robert Almendarez IG % 0.3 % Normal 0.0-0.5 [facility] Comment on above: Performed By: #### C BC #### [facility] [address] [place] [address] Dr. Robert Almendarez LYMPH # 2.0 103/ul Normal 1.2-3.8 [facility] Comment on above: Performed By: #### C BC #### [facility] [address] [place] [address] Dr. Robert Almendarez Lymphocytes/100 WBC (Bld) 32.4 % Normal 20.5-60.0 [facility] Comment on above: Performed By: #### C BC #### [facility] [address] [place] [address] Dr. Robert Almendarez MANUAL DIFF REQ NO Normal [facility] Comment on above: Performed By: #### C BC #### [facility] [address] [place] [address] Dr. Robert Almendarez MCH (RBC) [Entitic mass] 29.5 pg Normal 25.9-34.0 [facility] Comment on above: Performed By: #### C BC #### [facility] [address] [place] [address] Dr. Robert Almendarez MCHC (RBC) [Mass/Vol] 33.6 g/dL Normal 29.9-35.2 [facility] Comment on above: Performed By: #### C BC #### [facility] [address] [place] [address] Dr. Robert Almendarez MCV (RBC) [Entitic vol] 87.8 fL Normal 80.0-94.0 [facility] Comment on above: Performed By: #### C BC #### [facility] [address] [place] [address] Dr. Robert Almendarez MONO # 0.6 103/ul Normal 0.3-0.8 [facility] Comment on above: Performed By: #### C BC #### [facility] [address] [place] [address] Dr. Robert Almendarez Monocytes/100 WBC (Bld) 9.2 % Normal 1.7-12.0 [facility] Comment on above: Performed By: #### C BC #### [facility] [address] [place] [address] Dr. Robert Almendarez NEUT # 3.5 103/ul Normal 1.4-6.5 [facility] Comment on above: Performed By: #### C BC #### [facility] [address] [place] [address] Dr. Robert Almendarez Neutrophils/100 WBC (Bld) 56.3 % Normal 43.0-75.0 [facility] Comment on above: Performed By: #### C BC #### [facility] [address] [place] [address] Dr. Robert Almendarez Platelet mean volume (Bld) [Entitic vol] 11.0 fL Normal 9.5-13.5 [facility] Comment on above: Performed By: #### C BC #### [facility] [address] [place] [address] Dr. Robret Almendarez PLT 265 103/ul Normal 150-450 [facility] Comment on above: Performed By: #### C BC #### [facility] [address] [place] [address] Dr. Robert Almendarez RBC 4.44 106/ul Critically low 4.70-6.10 [facility] Comment on above: Performed By: #### C BC #### [facility] [address] [place], [place] [address] Dr. Robert Almendarez WBC 6.1 103/ul Normal 4.0-11.0 [facility] Comment on above: Performed By: #### C BC #### [facility] [address] [place], [place] [address] ABD/PELVIS WO CONon [...] ALICE TOURETIFFANY Date: 2022-10-13 14:16 Normal [facility] ER URINE PROFILEon 3 Bilirubin Ql (U) Negative Normal NEGATIVE [facility] Comment on above: Performed By: #### E MITULR UMICRO #### [facility] [address] [address] [address] Robert Almendarez Clarity (U) CLEAR Normal CLEAR [facility] Comment on above: Performed By: #### E OTILIO UMICRO #### [facility] [address] [address] [address] Robert Almendarez Color (U) LT. YELLOW Normal YELLOW [facility] Comment on above: Performed By: #### E OTILIO UMICRO #### [facility] [address] [place] [address] Dr. Robert STRICKLAND A micrscopic examination will be performed if indicated. Normal [facility] Comment on above: Performed By: #### Fallon YAÑEZ UMICRO #### [facility] [address] [address] [address] Robert Almendarez Glucose Ql (U) Negative Normal NEGATIVE [facility] Comment on above: Performed By: #### Fallon YAÑEZ UMICRO #### [facility] [address] [address] [address] Robert Almendarez Hemoglobin Ql (U) TRACE-INTACT Abnormal NEGATIVE [facility] Comment on above: Performed By: #### E RUR, UMICRO #### [facility] [address] [address] [address] Robert Almendarez Ketones Ql (U) Negative Normal NEGATIVE [facility] Comment on above: Performed By: #### E RUR UMICRO #### [facility] [address] [address] [address] Robert Almendarez LEUKOCYTES Negative Normal NEGATIVE [facility] Comment on above: Performed By: #### Fallon RUR UMICRO #### [facility] [address] [place] [address] Dr. Robert Almendarez Nitrite Ql (U) Negative Normal NEGATIVE [facility] Comment on above: Performed By: #### MARIA C HAYES #### [facility] [address] [place] [address] Dr. Robert Almendarez pH (U) 7.0 [pH] Normal 5-9 [facility] Comment on above: Performed By: #### JOSE HAYESRO #### [facility] [address] [place] [address] Dr. Robert Almendarez Protein (U) [Mass/Vol] 30 mg/dL Abnormal NEGAT PAO/ TRACE [facility] Comment on above: Performed By: #### JOSE HAYESRO #### [facility] [address] [place] [address] Dr. Robert Almendarez SPEC GRAVITY 1.010 Normal 1.005-<=1.[address] [place] [address] Comment on above: Performed By: #### JOSE HAYESRO #### [facility] [address] [place] [address] Dr. Robert Almendarez UR MICRO IND INDICATED Normal [facility] Comment on above: Performed By: #### JOSE HAYESRO #### [facility] [address] [place] [address] Dr. Robert Almendarez Urobilinogen Qn (U) 0.2 {Fabiana'U}/dL Normal 0.2 - 1. 0 [facility] Comment on above: Performed By: #### JOSE HAYESRO #### [facility] [address] [place] [address] Dr. Robert Almendarez PROF 14(COMP METB)on 023 Albumin [Mass/Vol] 3.4 g/dL Normal 3.4-5.0 [facility] Comment on above: Performed By: #### P T, PTT #### [facility] [address] [place] [address] Dr. Robert Almendarez Albumin/Globulin [Mass ratio] 1.0 {ratio} Normal [facility] Comment on above: Performed By: #### P T, PTT #### [facility] [address] [address] [address] Robert Almendarez ALP [Catalytic activity/Vol] 80 U/L Normal 46-116 [facility] Comment on above: Performed By: #### P T, PTT #### [facility] [address] [place] [address] Dr. Robert Almendarez ALT [Catalytic activity/Vol] 25 U/L Normal 16-63 [facility] Comment on above: Performed By: #### P T, PTT #### [facility] [address] [place] [address] Dr. Robert Almendarez Anion gap [Moles/Vol] 10.3 mmol/L Normal [facility] Comment on above: Performed By: #### P T, PTT #### [facility] [address] [place] [address] Dr. Robert Almendarez AST [Catalytic activity/Vol] 17 U/L Normal 15-37 [facility] Comment on above: Performed By: #### P T, PTT #### [facility] [address] [place] [address] Dr. Robert Almendarez Bilirubin [Mass/Vol] 0.3 mg/dL Normal 0.2-1.0 [facility] Comment on above: Performed By: #### P T, PTT #### [facility] [address] [place] [address] Dr. Robert Almendarez Calcium [Mass/Vol] 10.4 mg/dL Critically high 8.5-10.1 [facility] Comment on above: Performed By: #### P T, PTT #### [facility] [address] [place] [address] Dr. Robert Almendarez Chloride [Moles/Vol] 105 mmol/L Normal 98-107 [facility] Comment on above: Performed By: #### P T, PTT #### [facility] [address] [place] [address] Dr. Robert Almendarez CO2 [Moles/Vol] 26.9 mmol/L Normal 21.0-32.0 [facility] Comment on above: Performed By: #### P T, PTT #### [facility] [address] [address] [address] Robert Almendarez Creatinine [Mass/Vol] 1.43 mg/dL Critically high 0.70-1.30 [facility] Comment on above: Performed By: #### P T, PTT #### [facility] [address] [address] [address] Robert Almendarez EGFR-AF KAZAKH >60 Normal >=60 [facility] Comment on above: Performed By: #### P T, PTT #### [facility] [address] [address] [address] Robert Almendarez EGFR-NON AF KAZAKH 50 mL/min/1.73m2 Critically low >=60 [facility] Comment on above: Performed By: #### P T, PTT #### [facility] [address] [place] [address] Dr. Robert Almendarez Globulin (S) [Mass/Vol] 3.5 g/dL Normal [facility] Comment on above: Performed By: #### P T, PTT #### [facility] [address] [address] [address] Robert Almendarez Glucose [Mass/Vol] 168 mg/dL Critically high 74-106 [facility] Comment on above: Performed By: #### P T, PTT #### [facility] [address] [address] [address] Robert Almendarez Potassium [Moles/Vol] 4.2 mmol/L Normal 3.5-5.1 [facility] Comment on above: Performed By: #### P T, PTT #### [facility] [address] [address] [address] Robert Almendarez Protein [Mass/Vol] 6.9 g/dL Normal 6.4-8.2 [facility] Comment on above: Performed By: #### P T, PTT #### [facility] [address] [address] [address] Robert Almendarez Sodium [Moles/Vol] 138 mmol/L Normal 136-145 [facility] Comment on above: Performed By: #### P T, PTT #### [facility] [address] [place] [address] Dr. Robert Almendarez Urea nitrogen [Mass/Vol] 23.0 mg/dL Critically high 7.0-18.0 [facility] Comment on above: Performed By: #### P T, PTT #### [facility] [address] [place] [address] Dr. Robert Almendarez Urea nitrogen/Creatinine [Mass ratio] 16.1 mg/mg Normal [facility] Comment on above: Performed By: #### P T, PTT #### [facility] [address] [place] [address] Dr. Robert Almendarez PROTIMEon 10-13-2022 INR Coag (PPP) [Relative time] 1.00 {INR} Normal [facility] Comment on above: Performed By: #### P T, PTT #### [facility] [address] [place] [address] Dr. Robert Almendarez INR GUIDELINES SEE BELOW Normal [facility] Comment on above: Result Comment: DAVID RED INR: 2.0 - 3.0 CONDITIONS NOT LISTED BELOW 2.5 - 3.5 FOR PROSTHETIC HEART VALVE REPLACEMENT 2.5 - 3.5 RECURRENT THROMBOSIS Performed By: #### P T, PTT #### [facility] [address] [place] [address] Dr. Robert Almendarez PT Coag (PPP) [Time] 10.6 s Normal 9.0-11.6 [facility] Comment on above: Performed By: #### P T, PTT #### [facility] [address] [place] [address] Dr. Robert Almendarez PTTon 10-13-2022 aPTT Coag (Bld) [Time] 25.4 s Normal 22.3-36.2 [facility] Comment on above: Performed By: #### P T, PTT #### [facility] [address] [place] [address] Dr. Robert Almendarez URINE MICROSCOPIC ONLYon BACTERIA NONE SEEN Normal NONE SEEN [facility] Comment on above: Performed By: #### E OTILIO, UMICRO #### [facility] [address] [place] [address] Dr. Robert Almendarez Bacteria identified Cx Nom (U) NOT INDICATED Normal [facility] Comment on above: Performed By: #### Fallon YAÑEZ UMICRO #### [facility] [address] [place] [address] Dr. Robert Almendarez CAST NONE SEEN Normal NONE SEEN [facility] Comment on above: Performed By: #### Fallon YAÑEZ UMICRO #### [facility] [address] [place] [address] Dr. Robert Almendarez Crystals LM Nom (Urine sed) NONE SEEN Normal NONE SEEN [facility] Comment on above: Performed By: #### Fallon YAÑEZ UMICRO #### [facility] [address] [place] [address] Dr. Robert Almendarez Epithelial cells LM Ql (Urine sed) RARE Normal NONE SEEN /RARE [facility] Comment on above: Performed By: #### Fallon YAÑEZ UMICRO #### [facility] [address] [place] [address] Dr. Robert Almendarez MUCOUS NONE SEEN Normal NONE SEEN [facility] Comment on above: Performed By: #### Fallon YAÑEZ UMICRO #### [facility] [address] [place] [address] Dr. Robert Almendarez RBC 0-2 Normal 0-2 [facility] Comment on above: Performed By: #### Fallon YAÑEZ UMICRO #### [facility] [address] [place] [address] Dr. Robert Almendarez WBC 0-2 Abnormal NONE SEEN [facility] Comment on above: Performed By: #### Fallon YAÑEZ UMICRO #### [facility] [address] [place] [address] Dr. Robert Almendarez XR CHEST 1 Von [...] FLOYD KHUSHBOO Date: 2022-10-13 12:48 Normal [facility] Echo 2D w doppler w color co mpleteon 07-11-2022 [facility] Transthoracic Echocardiography Report (TTE) Patient Name LAURA Date of Study 07/11/2022 PIOTR A Date of 1960 Gender Male Age 61 year(s) Race Room Number Height: 72 inch, 182.88 cm Corporate ID [id number] Weight: 240 pounds, 108.9 kg # Patient Acct [id number] BSA: 2.3 m^2 BMI: 32.55 # kg/m^2 MR # [id number] [employer] Dionna Barriga Interpreting Physician Alice Mars Fellow Referring Nurse Practitioner Interpreting Referring Physician Alma Kan Fellow Type of Study TTE procedure:2D Echocardiogram, M-Mode, Doppler, Color Doppler. Procedure Date Date: 07/11/2022 Start: 10:46 AM Study Location: [facility] Indications:Preop cardiac evaluation. History / Tech. Comments: [...] velocity:0.11 m/s Lateral Wall E/E':9.2 MHPN MHT [facility] Alice Mars MD - 07/11/2022 [facility] Transthoracic Echocardiography Report (TTE) Patient Name LAURA Date of Study 07/11/2022 PIOTR A Date of 1960 Gender Male Age 61 year(s) Race Room Number Height: 72 inch, 182.88 cm Corporate ID [id number] Weight: 240 pounds, 108.9 kg # Patient Acct [id number] BSA: 2.3 m^2 BMI: 32.55 # kg/m^2 MR # [id number] [employer] Dionna Barriga Interpreting Physician Alice Mars Fellow Referring Nurse Practitioner Interpreting Referring Physician Alma Kan Type of Study TTE procedure:2D Echocardiogram, M-Mode, Doppler, Color Doppler. Procedure Date Date: 07/11/2022 Start: 10:46 AM Study Location: [facility] Indications:Preop cardiac evaluation. History / Tech. Comments: [...] Wall E' velocity:0.11 m/s Lateral Wall E/E':9.2 [facility] Work Phone: Echo 2D w doppler w color co mpleteOrdered By: Alice Mars on 07-11-2022 [facility] Work Phone: CBC with Auto Differentialon 06-25-2022 Absolute Eos # 0.07 [place] [facility] Absolute Immature Granulocyte [facility] Absolute Lymph # 1.89 [facility] Absolute [place] # 0.62 [facility] Basophils (Bld) [#/Vol] 0.05 10*3/uL [facility] Basophils/100 WBC (Bld) 1 % 0 - 2 % [facility] Eosinophils/100 WBC (Bld) 1 % 1 - 4 % [facility] Hematocrit (Bld) [Volume fraction] 39.3 % Low 40.7 - 50.3 % [facility] Hemoglobin (Bld) [Mass/Vol] 12.9 g/dL Low 13.0 - 17.0 g/dL [facility] Immature granulocytes/100 WBC (Bld) 0 % 0 [facility] Interpretation and review of laboratory results Abnormal [facility] Lymphocytes/100 WBC (Bld) 27 % 24 - 43 % [facility] MCH (RBC) [Entitic mass] 30.3 pg 25.2 - 33.5 pg [facility] MCHC (RBC) [Mass/Vol] 32.8 g/dL 28.4 - 34.8 g/dL [facility] MCV (RBC) [Entitic vol] 92.3 fL 82.6 - 102.9 fL [facility] Monocytes/100 WBC (Bld) 9 % 3 - 12 % [facility] NRBC Automated 0.0 0.0 per 100 WBC [facility] Platelet distribution width (Bld) [Ratio] 11.7 % Low 11.8 - 14.4 % [employer] Platelet mean volume (Bld) [Entitic vol] 10.9 fL 8.1 - 13.5 fL [employer] Platelets (Bld) [#/Vol] 236 10*3/uL [employer] [facility] RBC (Bld) [#/Vol] 4.26 10*6/uL 4.21 - 5.7 7 m/uL [employer] [facility] Segmented neutrophils/100 WBC (Bld) 62 % 36 - 65 % [employer] [facility] Segs Absolute 4.44 [employer] [facility] [employer] WBC (Bld) [#/Vol] 7.1 10*3/uL [facility] [employer] [employer] [facility] EKG 12 Leadon 06-25-2022 Atrial Rate 60 BPM [employer] Work Phone: P Nogal 42 degrees [employer] Work Phone: P-R Interval 134 ms [employer] Work Phone: Q-T Interval 386 ms [employer] Work Phone: QRS Duration 94 ms [employer] Work Phone: QTc Calculation (Bazett) 386 ms [employer] Work Phone: R Nogal -2 degrees [employer] Work Phone: T Nogal 23 degrees [employer] Work Phone: Ventricular Rate 60 BPM [employer] Work Phone: Normal sinus rhythm Can not rule out septal infarction, age undetermined. Abnormal ECG When compared with ECG of 05-JUN-2021 18:44, Nonspecific T wave abnormality, improved in Inferior leads Minimal criteria for septal infarction is now present. Confirmed by Alma Kan MD ([id number]) on 06/25/2022 8:14:36 PM [facility] Alma Kan MD - 06/25/2022 Normal sinus rhythm Can not rule out septal infarction, age undetermined. Abnormal ECG When compared with ECG of 05-JUN-2021 18:44, Nonspecific T wave abnormality, improved in Inferior leads Minimal criteria for septal infarction is now present. Confirmed by Alma Kan MD ([id number]) on 06/25/2022 8:14:36 PM [facility] Work Phone: [facility] Work Phone: Albuminon 05-24-2022 Albumin [Mass/Vol] 4 g/dL 3.5 - 5.2 g/dL [facility] CALCIUM,TIMED URon Calcium [Mass/Vol] 9.4 mg/dL [facility] Calcium, Urine 122 [facility] Hours Collected 24 h [facility] Volume 1300 mL [facility] Calciumon 05-24-2022 Calcium [Mass/Vol] 11.7 mg/dL High 8.6 - 10. 4 mg/dL [facility] Cortisol Totalon 05-24-2022 Cortisol 10.4 ug/dL 2.7 - 18.4 ug/dL [facility] Comment on above: Cortisol Reference Range: AM 6.0-18.4 PM 2.7-10.5 Cortisol Collection Info Unknown [facility] No Panel Informationon 05-24 Interpretation and review of laboratory results Abnormal [facility] PTH, Intacton 05-24-2022 Interpretation and review of laboratory results Abnormal [facility] Pth Intact 107.7 pg/mL High 14.0 - 72.0 pg/mL [facility] Comment on above: SAMPLES FROM PATIENT S ROUTINELY RECEIVING HIGH DOSE BIOTIN THERAPY MAY SHOW FALSELY DEPRESSED RESULTS. ADDITIONAL INFORMATION MAY BE REQUIRED FOR DIAGNOSIS. [facility] Phosphoruson 05-24-2022 Phosphate [Mass/Vol] 1.5 mg/dL Low 2.5 - 4 .5 mg/dL [facility] US RENAL COMPLETEon 05-20-20 Appearance (U) Unremarkable ultrasound the kidneys. Unremarkable appearance urinary bladder with 309 mL postvoid residual volume. RECOMMENDATIONS: Unavailable [facility] CONSOLIDATED EXAMINATION: RETROPERITONEAL ULTRASOUND OF THE KIDNEYS AND URINARY BLADDER 05/20/2022 COMPARISON: None HISTORY: ORDERING SYSTEM PROVIDED HISTORY: Incomplete bladder emptying TECHNOLOGIST PROVIDED HISTORY: This procedure can be scheduled via [employer]. Access your [employer] account by visiting [employer]. Incomplete bladder emptying, chronic kidney disease 3 FINDINGS: Kidneys: The right kidney measures 11.4 cm in length and the left kidney measures 11.3 cm in length. Kidneys demonstrate normal cortical echogenicity. No evidence of hydronephrosis or intrarenal stones. Bladder: Unremarkable appearance urinary bladder with prevoid volume 594 mL. Postvoid residual 309 mL. [facility] CONSOLIDATED You Null DO - 05/20/2022 EXAMINATION: RETROPERITONEAL ULTRASOUND OF THE KIDNEYS AND URINARY BLADDER 05/20/2022 COMPARISON: None HISTORY: ORDERING SYSTEM PROVIDED HISTORY: Incomplete bladder emptying TECHNOLOGIST PROVIDED HISTORY: This procedure can be scheduled via [employer]. Access your [employer] account by visiting [employer]. Incomplete bladder emptying, chronic kidney disease 3 [...] 309 mL postvoid residual volume. RECOMMENDATIONS: Unavailable [employer] Phone: Radiology Study observation (narrative) [employer] Phone: US RENAL COMPLETEOrdered By: You Null on 05-20-2022 [employer] Phone: CBC AUTO DIFFon 05-14-2022 BASO # 0.0 103/ul Normal 0.0-0.1 [facility] Comment on above: Performed By: #### P T, PTT #### [facility] [address] [address] [address] Robert Almendarez Basophils/100 WBC (Bld) 0.6 % Normal 0.2-2.0 [facility] Comment on above: Performed By: #### P T, PTT #### [facility] [address] [place] [address] Dr. Robert Almendarez EO # 0.1 103/ul Normal 0.0-0.7 [facility] Comment on above: Performed By: #### P T, PTT #### [facility] [address] [place] [address] Dr. Robert Almendarez Eosinophils/100 WBC (Bld) 1.0 % Normal 0.9-7.0 [facility] Comment on above: Performed By: #### P T, PTT #### [facility] [address] [place] [address] Dr. Robert Almendarez Erythrocyte distribution width (RBC) [Ratio] 11.9 % Normal 11.0-15.0 [facility] Comment on above: Performed By: #### P T, PTT #### [facility] [address] [place] [address] Dr. Robert Almendarez Hematocrit (Bld) [Volume fraction] 40.1 % Critically low 42.0-54.0 [facility] Comment on above: Performed By: #### P T, PTT #### [facility] [address] [place] [address] Dr. Robert Almendarez Hemoglobin (Bld) [Mass/Vol] 13.6 g/dL Critically low 14.0-18.0 [facility] Comment on above: Performed By: #### P T, PTT #### [facility] [address] [place] [address] Dr. Robert Almendarez IG # 0.02 10e3/ul Normal 0.00-0.03 [facility] Comment on above: Performed By: #### P T, PTT #### [facility] [address] [place] [address] Dr. Robert Almendarez IG % 0.3 % Normal 0.0-0.5 [facility] Comment on above: Performed By: #### P T, PTT #### [facility] [address] [place] [address] Dr. Robert Almendarez LYMPH # 2.4 103/ul Normal 1.2-3.8 [facility] Comment on above: Performed By: #### P T, PTT #### [facility] [address] [place] [address] Dr. Robert Almendarez Lymphocytes/100 WBC (Bld) 34.0 % Normal 20.5-60.0 [facility] Comment on above: Performed By: #### P T, PTT #### [facility] [address] [place] [address] Dr. Robert Almendarez MANUAL DIFF REQ NO Normal [facility] Comment on above: Performed By: #### P T, PTT #### [facility] [address] [place] [address] Dr. Robert Almendarez MCH (RBC) [Entitic mass] 29.7 pg Normal 25.9-34.0 [facility] Comment on above: Performed By: #### P T, PTT #### [facility] [address] [place] [address] Dr. Robert Almendarez MCHC (RBC) [Mass/Vol] 33.9 g/dL Normal 29.9-35.2 [facility] Comment on above: Performed By: #### P T, PTT #### [facility] [address] [place] [address] Dr. Robert Almendarez MCV (RBC) [Entitic vol] 87.6 fL Normal 80.0-94.0 [facility] Comment on above: Performed By: #### P T, PTT #### [facility] [address] [place] [address] Dr. Robert Almendarez MONO # 0.8 103/ul Normal 0.3-0.8 [facility] Comment on above: Performed By: #### P T, PTT #### [facility] [address] [place] [address] Dr. Robert Almendarez Monocytes/100 WBC (Bld) 11.2 % Normal 1.7-12.0 [facility] Comment on above: Performed By: #### P T, PTT #### [facility] [address] [place] [address] Dr. Robert Almendarez NEUT # 3.7 103/ul Normal 1.4-6.5 [facility] Comment on above: Performed By: #### P T, PTT #### [facility] [address] [address] [address] Robert Almendarez Neutrophils/100 WBC (Bld) 52.9 % Normal 43.0-75.0 [facility] Comment on above: Performed By: #### P T, PTT #### [facility] [address] [address] [address] Robert Almendarez Platelet mean volume (Bld) [Entitic vol] 10.4 fL Normal 9.5-13.5 [facility] Comment on above: Performed By: #### P T, PTT #### [facility] [address] [place] [address] Dr. Robert Almendarez PLT 260 103/ul Normal 150-450 [facility] Comment on above: Performed By: #### P T, PTT #### [facility] [address] [place] [address] Dr. Robert Almendarez RBC 4.58 106/ul Critically low 4.70-6.10 [facility] Comment on above: Performed By: #### P T, PTT #### [facility] [address] [place] [address] Dr. Robert Almendarez WBC 6.9 103/ul Normal 4.0-11.0 [facility] Comment on above: Performed By: #### P T, PTT #### [facility] [address] [place] [address] Dr. Robert Almendarez PHOSPHORUSon 05-14-2022 Phosphate [Mass/Vol] 1.8 mg/dL Critically low 2.6-4.7 [facility] Comment on above: Performed By: #### P T, PTT #### [facility] [address] [place] [address] Dr. Robert Almendarez PROF 14(COMP METB)on Albumin [Mass/Vol] 4.0 g/dL Normal 3.4-5.0 [facility] Comment on above: Performed By: #### P T, PTT #### [facility] [address] [address] [address] Robert Almendarez Albumin/Globulin [Mass ratio] 1.1 {ratio} Normal [facility] Comment on above: Performed By: #### P T, PTT #### [facility] [address] [address] [address] Robert Almendarez ALP [Catalytic activity/Vol] 85 U/L Normal 46-116 [facility] Comment on above: Performed By: #### P T, PTT #### [facility] [address] [address] [address] Robert Almendarez ALT [Catalytic activity/Vol] 24 U/L Normal 16-63 [facility] Comment on above: Performed By: #### P T, PTT #### [facility] [address] [place] [address] Dr. Robert Almendarez Anion gap [Moles/Vol] 9.0 mmol/L Normal [facility] Comment on above: Performed By: #### P T, PTT #### [facility] [address] [address] [address] Robert Almendarez AST [Catalytic activity/Vol] 14 U/L Critically low 15-37 [facility] Comment on above: Performed By: #### P T, PTT #### [facility] [address] [place] [address] Dr. Robert Almendarez Bilirubin [Mass/Vol] 0.5 mg/dL Normal 0.2-1.0 [facility] Comment on above: Performed By: #### P T, PTT #### [facility] [address] [address] [address] Robert Almendarez Calcium [Mass/Vol] 11.0 mg/dL Critically high 8.5-10.1 [facility] Comment on above: Performed By: #### P T, PTT #### [facility] [address] [address] [address] Robert Almendarez Chloride [Moles/Vol] 105 mmol/L Normal 98-107 [facility] Comment on above: Performed By: #### P T, PTT #### [facility] [address] [address] [address] Robert Almendarez CO2 [Moles/Vol] 28.9 mmol/L Normal 21.0-32.0 [facility] Comment on above: Performed By: #### P T, PTT #### [facility] [address] [address] [address] Robert Almendarez Creatinine [Mass/Vol] 1.43 mg/dL Critically high 0.70-1.30 [facility] Comment on above: Performed By: #### P T, PTT #### [facility] [address] [address] [address] Robert Almendarez EGFR-AF KAZAKH >60 Normal >=60 [facility] Comment on above: Performed By: #### P T, PTT #### [facility] [address] [address] [address] Robert Almendarez EGFR-NON AF KAZAKH 50 mL/min/1.73m2 Critically low >=60 [facility] Comment on above: Performed By: #### P T, PTT #### [facility] [address] [address] [address] Robert Almendarez Globulin (S) [Mass/Vol] 3.5 g/dL Normal [facility] Comment on above: Performed By: #### P T, PTT #### [facility] [address] [address] [address] Robert Almendarez Glucose [Mass/Vol] 147 mg/dL Critically high 74-106 [facility] Comment on above: Performed By: #### P T, PTT #### [facility] [address] [address] [address] Robert Almendarez Potassium [Moles/Vol] 3.9 mmol/L Normal 3.5-5.1 [facility] Comment on above: Performed By: #### P T, PTT #### [facility] [address] [address] [address] Robert Almendarez Protein [Mass/Vol] 7.5 g/dL Normal 6.4-8.2 [facility] Comment on above: Performed By: #### P T, PTT #### [facility] [address] [place], [place] [address] Dr. Robert Almendarez Sodium [Moles/Vol] 139 mmol/L Normal 136-145 [facility] Comment on above: Performed By: #### P T, PTT #### [facility] [address] [place], [place] [address] Dr. Robert Almendarez Urea nitrogen [Mass/Vol] 27.0 mg/dL Critically high 7.0-18.0 [facility] Comment on above: Performed By: #### P T, PTT #### [facility] [address] [place], [place] [address] Dr. Robert Almendarez Urea nitrogen/Creatinine [Mass ratio] 18.9 mg/mg Normal [facility] Comment on above: Performed By: #### P T, PTT #### [facility] [address] [address] [address] Robert Almendarez Basic Metabolic Panelon 12-2 Anion gap [Moles/Vol] 10 mmol/L 9 - 17 mmol/L [employer] [facility] Calcium [Mass/Vol] 12.0 mg/dL High 8.6 - 10. 4 mg/dL [employer] [facility] Chloride [Moles/Vol] 103 mmol/L 98 - 10 7 mmol/L [facility] CO2 [Moles/Vol] 25 mmol/L 20 - 31 mmol/L [employer] [facility] Creatinine [Mass/Vol] 1.39 mg/dL High 0.70 - 1.20 mg/dL [employer] [facility] GFR/1.73 sq M.predicted MDRD (S/P/Bld) [Vol rate/Area] 57 mL/min/{1.73_m2} Low - PINF [employer] [facility] Comment on above: Effective Feb 24, 2022 [...] 171 mg/dL High 70 - 99 mg/dL [facility] Interpretation and review of laboratory results Abnormal [facility] Potassium [Moles/Vol] 4.1 mmol/L 3.7 - 5.3 mmol/L [facility] Sodium [Moles/Vol] 138 mmol/L 135 - 144 mmol/L [facility] Urea nitrogen (BldV) [Mass/Vol] 25 mg/dL High 8 - 23 mg/dL [facility] Urea nitrogen/Creatinine (Bld) [Mass ratio] 18 9 - [address] [facility] [employer] PSA Screeningon 05-13-2022 [facility] Basic Metabolic Panelon 02-23 Anion gap [Moles/Vol] 6 mmol/L Low 9 - 17 mmol/L [facility] Calcium [Mass/Vol] 10.6 mg/dL High 8.6 - 10. 4 mg/dL [facility] Chloride [Moles/Vol] 104 mmol/L 98 - 10 7 mmol/L [facility] CO2 [Moles/Vol] 25 mmol/L 20 - 31 mmol/L [facility] Creatinine [Mass/Vol] 1.31 mg/dL High 0.70 - 1.20 mg/dL [facility] GFR/1.73 sq M.predicted MDRD (S/P/Bld) [Vol rate/Area] - PINF [facility] Comment on above: Effective Feb 24, [...] 202 mg/dL High 70 - 99 mg/dL [facility] Interpretation and review of laboratory results Abnormal [facility] Potassium [Moles/Vol] 4.1 mmol/L 3.7 - 5.3 mmol/L [facility] Sodium [Moles/Vol] 135 mmol/L 135 - 144 mmol/L [facility] Urea nitrogen (BldV) [Mass/Vol] 27 mg/dL High 8 - 23 mg/dL [facility] Urea nitrogen/Creatinine (Bld) [Mass ratio] 21 High 9 - 20 [facility] A1C with Estimated Average G marcos 01-09-2022 Glucose [Mass/Vol] 160 mg/dL Normal [facility] Comment on above: Result Comment: PERF ORMED BY: [place] [address] PATHOLOGIST [employer] P[employer] WORKER YURI ORTA M.D. Performed By: #### B REPAIRER RECREATIONAL VEHICLE, BMP, LIPID, CBC, A1C WT eA #### [id number] [facility] HbA1c (Bld) [Mass fraction] 7.2 % High 4.3-5.6 [facility] Comment on above: Result Comment: Incr eased risk for diabetes: 5.7 - 6.4 diabetes: >6.4 glycemic control for adults with diabetes: <7.0 Performed By: #### B REPAIRER RECREATIONAL VEHICLE, BMP, LIPID, CBC, A1C WTH eA #### [address] B-Type Natriuretic Peptideon 01-09-2022 Natriuretic peptide B (Bld) [Mass/Vol] 90.0 pg/mL Normal 5-100 [facility] Comment on above: Result Comment: PERF ORMED BY: [place] [address] PATHOLOGIST [employer] P[employer] WORKER YURI ORTA M.D. Performed By: #### B REPAIRER RECREATIONAL VEHICLE, BMP, LIPID, CBC, A1C WTH eA #### [address] [id number] [facility] Basic Metabolic Panelon 08- Calcium [Mass/Vol] 11.0 mg/dL High 8.2-10.2 [facility] Comment on above: Performed By: #### B REPAIRER RECREATIONAL VEHICLE, BMP, LIPID, CBC, A1C WTH eA #### [address] [place] [address] [place] Chloride [Moles/Vol] 106 mmol/L Normal 95-114 [facility] Comment on above: Performed By: #### B REPAIRER RECREATIONAL VEHICLE, BMP, LIPID, CBC, A1C WTH eA #### [facility] [address] CO2 [Moles/Vol] 25.5 mmol/L Normal 22.0-30.0 [facility] Comment on above: Performed By: #### B REPAIRER RECREATIONAL VEHICLE, BMP, LIPID, CBC, A1C WTH eA #### [facility] [address] Creatinine [Mass/Vol] 1.25 mg/dL Normal 0.64-1.27 [facility] Comment on above: Performed By: #### B REPAIRER RECREATIONAL VEHICLE, BMP, LIPID, CBC, A1C WTH eA #### [address] Estimated GFR ( Lucia > 60 [facility] Comment on above: Result Comment: GFR estimated reference range: According to KDOQI guidelines, <60 ml/min/1.73m2 is sufficient to diagnose a patient with chronic kidney disease. Performed By: #### B REPAIRER RECREATIONAL VEHICLE, BMP, LIPID, CBC, A1C WTH eA #### [address] Estimated GFR (Non- Am 59 [facility] Comment on above: Performed By: #### B REPAIRER RECREATIONAL VEHICLE, BMP, LIPID, CBC, A1C WTH eA #### [address] Glucose [Mass/Vol] 120 mg/dL High 70-100 [facility] Comment on above: Result Comment: Maxie Glucose Reference Range is dependent on time and content of last meal. Glucose of more than 200 mg/dL in a nonstressed, ambulatory subject supports the diagnosis of Diabetes Mellitus. ADA recommended reference range Performed By: #### B REPAIRER RECREATIONAL VEHICLE, BMP, LIPID, CBC, A1C WTH eA #### [address] Potassium [Moles/Vol] 4.3 mmol/L Normal 3.5-5.1 [facility] Comment on above: Performed By: #### B REPAIRER RECREATIONAL VEHICLE, BMP, LIPID, CBC, A1C WT eA #### [facility] [address] Sodium [Moles/Vol] 136 mmol/L Normal 136-146 [facility] Comment on above: Performed By: #### B REPAIRER RECREATIONAL VEHICLE, BMP, LIPID, CBC, A1C WT eA #### [facility] [address] Urea nitrogen [Mass/Vol] 22 mg/dL Normal 9-23 [facility] Comment on above: Performed By: #### B REPAIRER RECREATIONAL VEHICLE, BMP, LIPID, CBC, A1C WT eA #### [facility] [address] Basophils Auto (Bld) [#/Vol] Ordered By: Alma Kan on 01-09-2022 Basophils (Bld) [#/Vol] 0.0 10*3/uL 0.0-0.2 [facility] Basophils/100 WBC Auto (Bld) Ordered By: Alma Kan on 01-09-2022 Basophils/100 WBC (Bld) 0.3 % . [facility] Blood hemoglobin measurement (mass/volume)Ordered By: Alma Kan on 01-09-2022 Hemoglobin (Bld) [Mass/Vol] 13.6 g/dL 13.0-17.0 [facility] Blood leukocytes automated c ount (number/volume)Ordered By: Alma Kan on 01-09-2022 WBC (Bld) [#/Vol] 7.7 10*3/uL 4.5-11.0 [facility] Cholesterol [Mass/volume] in Serum or PlasmaOrdered By: Alma Kan on 01-09-2022 Cholesterol [Mass/Vol] 157 mg/dL 140-200 [facility] Comment on above: Chol less than 200 m g/dl low risk Chol 201-239 mg/dl borderline risk Chol 240 mg/dl and greater high risk Cholesterol in LDL Calc [Mas s/Vol]Ordered By: Alma Kan on 01-09-2022 Cholesterol in LDL [Mass/Vol] 86 mg/dL 0-100 [facility] Comment on above: LDL ATP III CLASSIFI CATION LDL less than 100 mg/dL Optimal LDL 100-129 mg/dL Near or above optimal LDL 130-159 mg/dL Borderline high LDL 160-189 mg/dL High LDL greater than 189 mg/dL Very high Cholesterol in VLDL Calc [Ma ss/Vol]Ordered By: Alma Kan on 01-09-2022 Cholesterol in VLDL [Mass/Vol] 45 mg/dL [facility] Complete Blood Count Auto Di ffon 01-09-2022 Basophils (Bld) [#/Vol] 0.0 10*3/uL Normal 0.0-0.2 [facility] Comment on above: Result Comment: PERF ORMED BY: [place] [address] PATHOLOGIST [employer] P[employer] WORKER YURI ORTA M.D. Performed By: #### B REPAIRER RECREATIONAL VEHICLE, BMP, LIPID, CBC, A1C WTH eA #### [address] Basophils/100 WBC (Bld) 0.3 % Normal . [facility] Comment on above: Performed By: #### B REPAIRER RECREATIONAL VEHICLE, BMP, LIPID, CBC, A1C WTH eA #### [address] Eosinophils (Bld) [#/Vol] 0.1 10*3/uL Normal 0.0-0.45 [facility] Comment on above: Performed By: #### B REPAIRER RECREATIONAL VEHICLE, BMP, LIPID, CBC, A1C WTH eA #### [address] Eosinophils/100 WBC (Bld) 1.9 % Normal . [facility] Comment on above: Performed By: #### B REPAIRER RECREATIONAL VEHICLE, BMP, LIPID, CBC, A1C WTH eA #### [address] Erythrocyte distribution width (RBC) [Ratio] 13.0 % Normal 12.0-14.8 [facility] Comment on above: Performed By: #### B REPAIRER RECREATIONAL VEHICLE, BMP, LIPID, CBC, A1C WTH eA #### [address] Hematocrit (Bld) [Volume fraction] 40.8 % Normal 38.8-50.0 [facility] Comment on above: Performed By: #### B REPAIRER RECREATIONAL VEHICLE, BMP, LIPID, CBC, A1C WTH eA #### [address] Hemoglobin (Bld) [Mass/Vol] 13.6 g/dL Normal 13.0-17.0 [facility] Comment on above: Performed By: #### B REPAIRER RECREATIONAL VEHICLE, BMP, LIPID, CBC, A1C WTH eA #### [address] Lymphocytes (Bld) [#/Vol] 3.0 10*3/uL Normal 1.00-4.8 [facility] Comment on above: Performed By: #### B REPAIRER RECREATIONAL VEHICLE, BMP, LIPID, CBC, A1C WTH eA #### [address] Lymphocytes/100 WBC (Bld) 38.9 % Normal . [facility] Comment on above: Performed By: #### B REPAIRER RECREATIONAL VEHICLE, BMP, LIPID, CBC, A1C WTH eA #### [address] MCH (RBC) [Entitic mass] 30.1 pg Normal 27.5-35.2 [facility] Comment on above: Performed By: #### B REPAIRER RECREATIONAL VEHICLE, BMP, LIPID, CBC, A1C WTH eA #### [address] MCV (RBC) [Entitic vol] 90.2 fL Normal 83.5-101 [facility] Comment on above: Performed By: #### B REPAIRER RECREATIONAL VEHICLE, BMP, LIPID, CBC, A1C WTH eA #### [address] Mean Corpuscular HGB Conc 33.3 g/dL Normal 32.5-35.6 [facility] Comment on above: Performed By: #### B REPAIRER RECREATIONAL VEHICLE, BMP, LIPID, CBC, A1C WTH eA #### [address] [address] [place] [address] [place] Monocytes (Bld) [#/Vol] 0.7 10*3/uL Normal 0.0-0.8 [facility] Comment on above: Performed By: #### B REPAIRER RECREATIONAL VEHICLE, BMP, LIPID, CBC, A1C WTH eA #### [address] Monocytes/100 WBC (Bld) 8.6 % Normal . [facility] Comment on above: Performed By: #### B REPAIRER RECREATIONAL VEHICLE, BMP, LIPID, CBC, A1C WTH eA #### [place] [address] [place] Neutrophils (Bld) [#/Vol] 3.9 10*3/uL Normal 1.8-7.7 [facility] Comment on above: Performed By: #### B REPAIRER RECREATIONAL VEHICLE, BMP, LIPID, CBC, A1C WTH eA #### [address] Neutrophils/100 WBC (Bld) 50.3 % Normal . [facility] Comment on above: Performed By: #### B REPAIRER RECREATIONAL VEHICLE, BMP, LIPID, CBC, A1C WTH eA #### [place] [address] [place] Nucleated RBC/100 WBC (Bld) [Ratio] 0.1 % Normal 0-0.5 [facility] Comment on above: Performed By: #### B REPAIRER RECREATIONAL VEHICLE, BMP, LIPID, CBC, A1C WTH eA #### [place] [address] [place] Platelet mean volume (Bld) [Entitic vol] 9.4 fL Normal 6.6-10.1 [facility] Comment on above: Performed By: #### B REPAIRER RECREATIONAL VEHICLE, BMP, LIPID, CBC, A1C WTH eA #### [place] [address] [place] Platelets (Bld) [#/Vol] 306 10*3/uL Normal 150-450 [facility] Comment on above: Performed By: #### B REPAIRER RECREATIONAL VEHICLE, BMP, LIPID, CBC, A1C WTH eA #### [address] [place] [address] [place] RBC (Bld) [#/Vol] 4.52 10*6/uL Normal 3.90-5.60 [facility] Comment on above: Performed By: #### B REPAIRER RECREATIONAL VEHICLE, BMP, LIPID, CBC, A1C WTH eA #### [facility] [address] [place] [address] [place] WBC (Bld) [#/Vol] 7.7 10*3/uL Normal 4.5-11.0 [facility] Comment on above: Performed By: #### B REPAIRER RECREATIONAL VEHICLE, BMP, LIPID, CBC, A1C WT eA #### [facility] [address] Creatinine and Glomerular fi ltration rate.predicted panel (S/P/Bld)Ordered By: Alma Kan on 01-09-2022 Creatinine [Mass/Vol] 1.25 mg/dL 0.64-1.27 [facility] Eosinophils Auto (Bld) [#/Vo l]Ordered By: Alma Kan on 01-09-2022 Eosinophils (Bld) [#/Vol] 0.1 10*3/uL 0.0-0.45 [facility] Eosinophils/100 WBC Auto (Bl d)Ordered By: Alma Kan on 01-09-2022 Eosinophils/100 WBC (Bld) 1.9 % . [facility] Erythrocyte distribution wid th Auto (RBC) [Ratio]Ordered By: Alma Kan on 01-09-2022 Erythrocyte distribution width (RBC) [Ratio] 13.0 % 12.0-14.8 [facility] Estimated glomerular filtrat ion rate (GFR) non- AmericanOrdered By: Alma Kan on 01-09-2022 GFR/1.73 sq M.predicted among non-blacks MDRD (S/P/Bld) [Vol rate/Area] 59 mL/Min [facility] Glucose mean value [Mass/vol ume] in Blood Estimated from glycated hemoglobinOrdered By: Alma Kan on 01-09-2022 Average glucose Estimated from glycated hemoglobin (Bld) [Mass/Vol] 160 mg/dL [facility] Hematocrit Auto (Bld) [Volum e fraction]Ordered By: Alma Kan on 01-09-2022 Hematocrit (Bld) [Volume fraction] 40.8 % 38.8-50.0 [facility] Hemoglobin A1c percentageOrd ered By: Alma Kan on 01-09-2022 HbA1c (Bld) [Mass fraction] 7.2 % 4.3-5.6 [facility] Comment on above: Increased risk for d iabetes: 5.7 - 6.4 diabetes: >6.4 glycemic control for adults with diabetes: <7.0 Laboratory - Chemistry and C hemistry - challengeOrdered By: Alma Kan on 01-09-2022 Natriuretic peptide B (Bld) [Mass/Vol] 90.0 pg/mL 5-100 [facility] - Hematology and Cell countsOrdered By: Alma Kan on 01-09-2022 Nucleated RBC/100 WBC (Bld) [Ratio] 0.1 % 0-0.5 [facility] Lipid Panelon 01-09-2022 Cholesterol [Mass/Vol] 157 mg/dL Normal 140-200 [facility] Comment on above: Result Comment: Chol less than 200 mg/dl low risk Chol 201-239 mg/dl borderline risk Chol 240 mg/dl and greater high risk Performed By: #### B REPAIRER RECREATIONAL VEHICLE, BMP, LIPID, CBC, A1C WT eA #### [facility] [address] Cholesterol in HDL [Mass/Vol] 26 mg/dL Low 29-71 [facility] Comment on above: Result Comment: HDL CHOL ATP-III CLASSIFICATION Cardiovascular Risk HDL > or equal to 60 mg/dL LOW HDL < 40 mg/dL HIGH Performed By: #### B REPAIRER RECREATIONAL VEHICLE, BMP, LIPID, CBC, A1C WT eA #### [facility] [address] [id number] [facility] Cholesterol.total/Shi sterol in HDL [Mass ratio] 6.0 {ratio} Normal <5.0 [facility] Comment on above: Result Comment: PERF ORMED BY: [facility] [address] [place] [address] PATHOLOGIST [employer] P[employer] WORKER YURI ORTA M.D. Performed By: #### B REPAIRER RECREATIONAL VEHICLE, BMP, LIPID, CBC, A1C WTH eA #### [facility] [address] LDL Cholesterol,Calculated 86 mg/dL Normal 0-100 [facility] Comment on above: Result Comment: LDL ATP III CLASSIFICATION LDL less than 100 mg/dL Optimal LDL 100-129 mg/dL Near or above optimal LDL 130-159 mg/dL Borderline high LDL 160-189 mg/dL High LDL greater than 189 mg/dL Very high Performed By: #### B REPAIRER RECREATIONAL VEHICLE, BMP, LIPID, CBC, A1C WTH eA #### [facility] [address] Triglyceride w/Reflex 227 mg/dL High 35-149 [facility] Comment on above: Result Comment: TRIG ATP III CLASSIFICATION TRIG less than 150 mg/dL Normal TRIG 150-199 mg/dL Borderline high TRIG 200-500 mg/dL High TRIG greater than 500 mg/dL Very high Standard traceable to the Center for Disease Conrtrol and Prevention (CDC) test method. Performed By: #### B REPAIRER RECREATIONAL VEHICLE, BMP, LIPID, CBC, A1C WTH eA #### [facility] [address] VLDL CHOLESTEROL 45 mg/dL Normal [facility] Comment on above: Performed By: #### B REPAIRER RECREATIONAL VEHICLE, BMP, LIPID, CBC, A1C WTH eA #### [facility] [address] Lymphocytes Auto (Bld) [#/Vo l]Ordered By: Alma Kan on 01-09-2022 Lymphocytes (Bld) [#/Vol] 3.0 10*3/uL 1.00-4.8 [facility] Lymphocytes/100 WBC Auto (Bl d)Ordered By: Alma Kan on 01-09-2022 Lymphocytes/100 WBC (Bld) 38.9 % . [facility] MCH Auto (RBC) [Entitic mass ]Ordered By: Alma Kan on 01-09-2022 MCH (RBC) [Entitic mass] 30.1 pg 27.5-35.2 [facility] MCHC Auto (RBC) [Mass/Vol]Or dered By: Alma Kan on 01-09-2022 MCHC (RBC) [Mass/Vol] 33.3 g/dL 32.5-35.6 [facility] MCV Auto (RBC) [Entitic vol] Ordered By: Alma Kan on 01-09-2022 MCV (RBC) [Entitic vol] 90.2 fL 83.5-101 [facility] Monocytes Auto (Bld) [#/Vol] Ordered By: Alma Kan on 01-09-2022 Monocytes (Bld) [#/Vol] 0.7 10*3/uL 0.0-0.8 [facility] Monocytes/100 WBC Auto (Bld) Ordered By: Alma Kan on 01-09-2022 Monocytes/100 WBC (Bld) 8.6 % . [facility] Neutrophils Auto (Bld) [#/Vo l]Ordered By: Alma Kan on 01-09-2022 Neutrophils (Bld) [#/Vol] 3.9 10*3/uL 1.8-7.7 [facility] Neutrophils/100 WBC Auto (Bl d)Ordered By: Alma Kan on 01-09-2022 Neutrophils/100 WBC (Bld) 50.3 % . [facility] No Panel InformationOrdered By: Alma Kan on 01-09-2022 Estimated GFR () > 60 mL/Min [facility] Comment on above: GFR estimated refere nce range: According to KDOQI guidelines, <60 ml/min/1.73m2 is sufficient to diagnose a patient with chronic kidney disease. Pharmacy Creatinine Clearance (Chem N/A [facility] Platelet mean volume Auto (B ld) [Entitic vol]Ordered By: Alma Kan on 01-09-2022 Platelet mean volume (Bld) [Entitic vol] 9.4 fL 6.6-10.1 [facility] Platelets Auto (Bld) [#/Vol] Ordered By: Alma Kan on 01-09-2022 Platelets (Bld) [#/Vol] 306 10*3/uL 150-450 [facility] RBC Auto (Bld) [#/Vol]Ordere d By: Alma Kan on 01-09-2022 RBC (Bld) [#/Vol] 4.52 10*6/uL 3.90-5.60 [facility] Serum or plasma calcium yaneth urement (mass/volume)Ordered By: Alma Kan on 01-09-2022 Calcium [Mass/Vol] 11.0 mg/dL 8.2-10.2 [facility] Serum or plasma chloride chariyt surement (moles/volume)Ordered By: Alma Kan on 01-09-2022 Chloride [Moles/Vol] 106 mmol/L 95-114 [facility] Serum or plasma glucose yaneth urement (mass/volume)Ordered By: Alma Kan on 01-09-2022 Glucose [Mass/Vol] 120 mg/dL 70-100 [facility] Comment on above: ADA recommended refe rence range Random Glucose Reference Range is dependent on time and content of last meal. Glucose of more than 200 mg/dL in a nonstressed, ambulatory subject supports the diagnosis of Diabetes Mellitus. Serum or plasma high density lipoprotein (HDL) cholesterol measurementOrdered By: Alma Kan on 01-09-2022 Cholesterol in HDL [Mass/Vol] 26 mg/dL 29-71 [facility] Comment on above: HDL CHOL ATP-III CLA SSIFICATION Cardiovascular Risk HDL > or equal to 60 mg/dL LOW HDL < 40 mg/dL HIGH Serum or plasma potassium me asurement (moles/volume)Ordered By: Alma Kan on 01-09-2022 Potassium [Moles/Vol] 4.3 mmol/L 3.5-5.1 [facility] Serum or plasma sodium measu rement (moles/volume)Ordered By: Alma Kan on 01-09-2022 Sodium [Moles/Vol] 136 mmol/L 136-146 [facility] Serum or plasma total carbon dioxide measurement (moles/volume)Ordered By: Alma Kan on 01-09-2022 CO2 [Moles/Vol] 25.5 mmol/L 22.0-30.0 [facility] Serum or plasma total choles terol/high density lipoprotein (HDL) cholesterol mass ratOrdered By: Alma Kan on 01-09-2022 Cholesterol.total/Shi sterol in HDL [Mass ratio] 6.0 {ratio} <5.0 [facility] Serum or plasma urea nitroge n measurement (mass/volume)Ordered By: Alma Kan on 01-09-2022 Urea nitrogen [Mass/Vol] 22 mg/dL 9 [facility] Triglyceride [Mass/volume] i n Serum or PlasmaOrdered By: Alma Kan on 01-09-2022 Triglyceride [Mass/Vol] 227 mg/dL 35-149 [facility] Comment on above: TRIG ATP III CLASSIF [...] unremarkable. Perirectal fat is normal in appearance. [facility] RIS CONSOLIDATED Radha Cummings MD - 09/11/2021 [...] lipoma in the left gluteus medius muscle. Contractually Phone: Radiology Study observation (narrative) [employer] Phone: CT ABDOMEN PELVIS WO CONTRAS T Additional Contrast? NoneOrdered By: Radha Cummings on 09-11-2021 [facility] Work Phone: Basic Metabolic Profon 06-17 (cont.) Normal [facility] Comment on above: Result Comment: Aver age GFR for 60-69 years old: 85 mL/min/1.73sq m Chronic Kidney Disease: <60 mL/min/1.73sq m Kidney failure: <15 mL/min/1.73sq m eGFR calculated using average adult body mass. Additional eGFR calculator available at: http://www.[employer]/multiple_crcl_2011.htm Performed By: #### B MEHUL, CDP #### [facility] [address] [place] [address] Railroad Firer: Eder Herrera MD Anion gap [Moles/Vol] 11 mmol/L Normal 02-08 [facility] Comment on above: Performed By: #### B MEHUL, CDP #### [facility] [address] [place] [address] Railroad Firer: Eder Herrera MD BUN/CRE Ratio 11 Normal 02-11 [facility] Comment on above: Performed By: #### B MEHUL, CDP #### [facility] [address] [place] [address] Railroad Firer: Eder Herrera MD Calcium [Mass/Vol] 9.4 mg/dL Normal 8.6-10.4 [facility] Comment on above: Performed By: #### B MEHUL, CDP #### [facility] [address] [place] [address] Railroad Firer: Eder Herrera MD Chloride [Moles/Vol] 102 mmol/L Normal 98-107 [facility] Comment on above: Performed By: #### B MP, CDP #### [facility] [address] [place] [address] Railroad Firer: Eder Herrera MD CO2 [Moles/Vol] 24 mmol/L Normal 20-31 [facility] Comment on above: Performed By: #### B MP, CDP #### [facility] [address] [place], [place] [id number] Railroad Firer: Eder Herrera MD Creatinine [Mass/Vol] 1.19 mg/dL Normal 0.70-1.20 [facility] Comment on above: Performed By: #### B MP, CDP #### [facility] [address] [place], [place] [id number] Railroad Firer: Eder Herrera MD GFR, Amer >60 Normal >60 [facility] Comment on above: Performed By: #### B MP, CDP #### [facility] [address], [place] [id number] Railroad Firer: Eder Herrera MD GFR,non Amer >60 Normal >60 [facility] Comment on above: Performed By: #### B MP, CDP #### [facility] [address], [place] [id number] Railroad Firer: Eder Herrera MD Glucose [Mass/Vol] 245 mg/dL High 70-99 [facility] Comment on above: Performed By: #### B MP, CDP #### [facility] [address] [place], [place] [id number] Railroad Firer: Eder Herrera MD Potassium [Moles/Vol] 4.2 mmol/L Normal 3.7-5.3 [facility] Comment on above: Performed By: #### B MP, CDP #### [facility] [address] [place], [place] [id number] Railroad Firer: Eder Herrera MD Sodium [Moles/Vol] 137 mmol/L Normal 135-144 [facility] Comment on above: Performed By: #### B MP, CDP #### [facility] [address] [place], [place] [id number] Railroad Firer: Eder Herrera MD Urea nitrogen [Mass/Vol] 13 mg/dL Normal 8-23 [facility] Comment on above: Performed By: #### B MEHUL, CDP #### [facility] [address] [place] [address] Railroad Firer: Eder Herrera MD Staging: NOT REPORTED Normal [facility] Comment on above: Performed By: #### B MEHUL, CDP #### [facility] [address] [place] [address] Railroad Firer: Eder Herrera MD CBC with Diffon 06-17-2021 Abs. Basophil 0.10 k/uL Normal 0.0-0.2 [facility] Comment on above: Performed By: #### B MEHUL, CDP #### [facility] [address], [place] [id number] Railroad Firer: Eder Herrera MD Abs.Neutrophil (Seg) 2.70 k/uL Normal 2.1-6.5 [facility] Comment on above: Performed By: #### B MEHUL, CDP #### [facility] [address] [place] [address] Railroad Firer: Eder Herrera MD Auto Diff Performed YES Normal [facility] Comment on above: Performed By: #### B MEHUL, CDP #### [facility] [address] [place] [address] Railroad Firer: Eder Herrera MD Basophils/100 WBC (Bld) 1 % Normal 0-2 [facility] Comment on above: Performed By: #### B MEHUL, CDP #### [facility] [address], [place] [id number] Railroad Firer: Eder Herrera MD Eosinophils (Bld) [#/Vol] 0.20 10*3/uL Normal 0.0-0.4 [facility] Comment on above: Performed By: #### B MEHUL, CDP #### [facility] [address], [place] [id number] Railroad Firer: Eder Herrera MD Eosinophils/100 WBC (Bld) 3 % Normal 0-5 [facility] Comment on above: Performed By: #### B MEHUL, CDP #### [facility] [address] [place], [place] [id number] Railroad Firer: Eder Herrera MD Erythrocyte distribution width (RBC) [Ratio] 12.6 % Normal 12.1-15.2 [facility] Comment on above: Performed By: #### B MEHUL, CDP #### [facility] [address] [place], [place] [id number] Railroad Firer: Eder Herrera MD Hematocrit (Bld) [Volume fraction] 34.3 % Low 41-53 [facility] Comment on above: Performed By: #### B MEHUL, CDP #### [facility] [address] [place], [place] [id number] Railroad Firer: Eder Herrera MD Hemoglobin (Bld) [Mass/Vol] 11.6 g/dL Low 13.5-17.5 [facility] Comment on above: Performed By: #### B MEHUL, CDP #### [facility] [address] [place], [place] [id number] Railroad Firer: Eder Herrera MD Lymphocytes (Bld) [#/Vol] 1.90 10*3/uL Normal 1.0-4.8 [facility] Comment on above: Performed By: #### B MEHUL, CDP #### [facility] [address] [place] [address] Railroad Firer: Eder Herrera MD Lymphocytes/100 WBC (Bld) 34 % Normal 13-44 [facility] Comment on above: Performed By: #### B MEHUL, CDP #### [facility] [address] [place], [place] [id number] Railroad Firer: Eder Herrera MD MCH (RBC) [Entitic mass] 29.6 pg Normal 26-34 [facility] Comment on above: Performed By: #### B MP, CDP #### [facility] [address] [place], [place] [id number] Railroad Firer: Eder Herrera MD MCHC (RBC) [Mass/Vol] 33.7 g/dL Normal 31-37 [facility] Comment on above: Performed By: #### B MP, CDP #### [facility] [address] [place], [place] [id number] Railroad Firer: Eder Herrera MD MCV (RBC) [Entitic vol] 87.9 fL Normal 80-100 M [facility] Comment on above: Performed By: #### B MEHUL, CDP #### [facility] [address] [place], [place] [id number] Railroad Firer: Eder Herrera MD Monocytes (Bld) [#/Vol] 0.80 10*3/uL Normal 0.0-1.0 [facility] Comment on above: Performed By: #### B MP, CDP #### [facility] [address] [place], [place] [id number] Railroad Firer: Eder Herrera MD Monocytes/100 WBC (Bld) 15 % High 5-9 M [facility] Comment on above: Performed By: #### B MP, CDP #### [facility] [address] [place] [address] Railroad Firer: Eder Herrera MD Neutrophil (Seg) 47 % Normal 39-75 [facility] Comment on above: Performed By: #### B MP, CDP #### [facility] [address] [place], [place] [id number] Railroad Firer: Eder Herrera MD Platelets (Bld) [#/Vol] 371 10*3/uL Normal 140-450 [facility] Comment on above: Performed By: #### B MEHUL, CDP #### [facility] [address] [place] [address] Railroad Firer: Eder Herrera MD RBC (Bld) [#/Vol] 3.91 10*6/uL Low 4.5-5.9 [facility] Comment on above: Performed By: #### B MEHUL, CDP #### [facility] [address] [place] [address] Railroad Firer: Eder Herrera MD WBC (Bld) [#/Vol] 5.7 10*3/uL Normal 3.5-11.0 [facility] Comment on above: Performed By: #### B MEHUL, CDP #### [facility] [address] [place] [address] Railroad Firer: Eder Herrera MD Abs.Imm.Granulocyte NOT REPORTED Normal 0.00-0.30 [facility] Comment on above: Performed By: #### B MEHUL, CDP #### [facility] [address] [place] [address] Railroad Firer: Eder Herrera MD Immature Granulocyte NOT REPORTED Normal 0 [facility] Comment on above: Performed By: #### B MEHUL, CDP #### [facility] [address] [place] [address] Railroad Firer: Eder Herrera MD MPV NOT REPORTED Normal 6.0-12.0 [facility] Comment on above: Performed By: #### B MEHUL, CDP #### [facility] [address] [place] [address] Railroad Firer: Eder Herrera MD NRBC Automated NOT REPORTED Normal [facility] Comment on above: Performed By: #### B MEHUL, CDP #### [facility] [address] [place] [address] Railroad Firer: Eder Herrera MD Platelet Comment NOT REPORTED Normal [facility] Comment on above: Performed By: #### B MP, CDP #### [facility] [address] [place], [place] [phone] Railroad Firer: Eder Herrera MD RBC morphology finding Nom (Bld) NOT REPORTED Normal [facility] Comment on above: Performed By: #### B MP, CDP #### [facility] [address] [place] [address] Railroad Firer: Eder Herrera MD WBC Morphology NOT REPORTED Normal [facility] Comment on above: Performed By: #### B MP, CDP #### [facility] [address] [place] [address] Railroad Firer: Eder Herrera MD Basic Metabolic Panelon Anion gap [Moles/Vol] 9 mmol/L 9 - 17 mmol/L [facility] Calcium [Mass/Vol] 8.8 mg/dL 8.6 - 10. 4 mg/dL [facility] Chloride [Moles/Vol] 101 mmol/L 98 - 10 7 mmol/L [facility] CO2 [Moles/Vol] 24 mmol/L 20 - 31 mmol/L [facility] Creatinine [Mass/Vol] 1.16 mg/dL 0.70 - 1.20 mg/dL [facility] GFR >60 >60 mL/min [facility] GFR Non- >60 >60 mL/min [facility] Glucose [Mass/Vol] 168 mg/dL High 70 - 99 mg/dL [facility] Interpretation and review of laboratory results Abnormal [facility] Potassium [Moles/Vol] 3.6 mmol/L Low 3.7 - 5.3 mmol/L [facility] Sodium [Moles/Vol] 134 mmol/L Low 135 - 144 mmol/L [facility] Urea nitrogen (BldV) [Mass/Vol] 18 mg/dL 8 - 23 mg/dL [facility] Urea nitrogen/Creatinine (Bld) [Mass ratio] 16 [facility] CBCon 06-01-2021 Hematocrit (Bld) [Volume fraction] 35.9 % Low 40.7 - 50.3 % [facility] Hemoglobin.gastrointest inal spec 1 Ql (Stl) 12.1 g/dL Low 13.0 - 17.0 g/dL [facility] Interpretation and review of laboratory results Abnormal [facility] MCH (RBC) [Entitic mass] 30.0 pg 25.2 - 33.5 pg [facility] MCHC (RBC) [Mass/Vol] 33.7 g/dL 28.4 - 34.8 g/dL [facility] MCV (RBC) [Entitic vol] 89.1 fL 82.6 - 102.9 fL [facility] NRBC Automated 0.0 0.0 per 100 WBC [facility] Platelet distribution width (Bld) [Ratio] 11.5 % Low 11.8 - 14.4 % [facility] Platelet mean volume (Bld) [Entitic vol] 10.4 fL 8.1 - 13.5 fL [facility] Platelets (Bld) [#/Vol] 178 10*3/uL [facility] RBC (Bld) [#/Vol] 4.03 10*6/uL Low 4.21 - 5.7 7 m/uL [facility] WBC (Bld) [#/Vol] 3.6 10*3/uL [facility] EKG Rhythm Stripon 2 [facility] Laboratory - Chemistry and C hemistry - challengeon 06-01-2021 GFR/1.73 sq M.predicted MDRD (S/P/Bld) [Vol rate/Area] [facility] Comment on above: Average GFR for 60-6 9 years old: 85 mL/min/1.73sq m Chronic Kidney Disease: <60 mL/min/1.73sq m Kidney failure: <15 mL/min/1.73sq m eGFR calculated using average adult body mass. Additional eGFR calculator available at: http://www.Wakie/Budist.Satispay/multiple_crcl_2011.htm Stage 1: Some kidney damage normal GFR Stage 2: Mild kidney damage GFR 60-89 Stage 3: Moderate kidney damage GFR 30-59 Stage 4: Severe kidney damage GFR 15-29 Stage 5: Severe kidney damage GFR <15 ESRD - chronic treatment by dialysis or transplant Basic Metabolic Panelon Anion gap [Moles/Vol] 12 mmol/L 9 - 17 mmol/L [facility] Calcium [Mass/Vol] 8.7 mg/dL 8.6 - 10. 4 mg/dL [facility] Chloride [Moles/Vol] 105 mmol/L 98 - 10 7 mmol/L [facility] CO2 [Moles/Vol] 24 mmol/L 20 - 31 mmol/L [facility] Creatinine [Mass/Vol] 1.59 mg/dL High 0.70 - 1.20 mg/dL [facility] GFR 54 mL/min Low >60 [facility] GFR Non- 44 mL/min Low >60 [facility] Glucose [Mass/Vol] 140 mg/dL High 70 - 99 mg/dL [facility] Interpretation and review of laboratory results Abnormal [facility] Potassium [Moles/Vol] 3.9 mmol/L 3.7 - 5.3 mmol/L [facility] Sodium [Moles/Vol] 141 mmol/L 135 - 144 mmol/L [facility] Urea nitrogen (BldV) [Mass/Vol] 21 mg/dL 8 - 23 mg/dL [facility] Urea nitrogen/Creatinine (Bld) [Mass ratio] 13 [facility] CBCon 05-31-2021 Hematocrit (Bld) [Volume fraction] 35.9 % Low 40.7 - 50.3 % [facility] Hemoglobin.gastrointest inal spec 1 Ql (Stl) 12.0 g/dL Low 13.0 - 17.0 g/dL [facility] Interpretation and review of laboratory results Abnormal [facility] MCH (RBC) [Entitic mass] 30.3 pg 25.2 - 33.5 pg [facility] MCHC (RBC) [Mass/Vol] 33.4 g/dL 28.4 - 34.8 g/dL [facility] MCV (RBC) [Entitic vol] 90.7 fL 82.6 - 102.9 fL [facility] NRBC Automated 0.0 0.0 per 100 WBC [facility] Platelet distribution width (Bld) [Ratio] 11.7 % Low 11.8 - 14.4 % [facility] Platelet mean volume (Bld) [Entitic vol] 10.6 fL 8.1 - 13.5 fL [facility] Platelets (Bld) [#/Vol] 188 10*3/uL [facility] RBC (Bld) [#/Vol] 3.96 10*6/uL Low 4.21 - 5.7 7 m/uL [facility] WBC (Bld) [#/Vol] 4.1 10*3/uL [facility] EKG Rhythm Stripon [place] [facility] - Chemistry and C hemistry - challengeon 05-31-2021 GFR/1.73 sq M.predicted MDRD (S/P/Bld) [Vol rate/Area] [facility] Comment on above: Average GFR for 60-6 9 years old: 85 mL/min/1.73sq m Chronic Kidney Disease: <60 mL/min/1.73sq m Kidney failure: <15 mL/min/1.73sq m eGFR calculated using average adult body mass. Additional eGFR calculator available at: http://www.Teleus/multiple_crcl_2012.htm Stage 1: Some kidney damage normal GFR Stage 2: Mild kidney damage GFR 60-89 Stage 3: Moderate kidney damage GFR 30-59 Stage 4: Severe kidney damage GFR 15-29 Stage 5: Severe kidney damage GFR <15 ESRD - chronic treatment by dialysis or transplant Basic Metabolic Panelon Anion gap [Moles/Vol] 11 mmol/L 9 - 17 mmol/L [facility] Calcium [Mass/Vol] 8.8 mg/dL 8.6 - 10. 4 mg/dL [facility] Chloride [Moles/Vol] 101 mmol/L 98 - 10 7 mmol/L [facility] CO2 [Moles/Vol] 23 mmol/L 20 - 31 mmol/L [facility] Creatinine [Mass/Vol] 1.61 mg/dL High 0.70 - 1.20 mg/dL [facility] GFR 53 mL/min Low >60 [facility] GFR Non- 44 mL/min Low >60 [facility] Glucose [Mass/Vol] 114 mg/dL High 70 - 99 mg/dL [facility] Interpretation and review of laboratory results Abnormal [facility] Potassium [Moles/Vol] 3.5 mmol/L Low 3.7 - 5.3 mmol/L [facility] Sodium [Moles/Vol] 135 mmol/L 135 - 144 mmol/L [facility] Urea nitrogen (BldV) [Mass/Vol] 24 mg/dL High 8 - 23 mg/dL [facility] Urea nitrogen/Creatinine (Bld) [Mass ratio] 15 [facility] CBCon 05-30-2021 Hematocrit (Bld) [Volume fraction] 35.4 % Low 40.7 - 50.3 % [facility] Hemoglobin.gastrointest inal spec 1 Ql (Stl) 11.6 g/dL Low 13.0 - 17.0 g/dL [facility] Interpretation and review of laboratory results Abnormal [facility] MCH (RBC) [Entitic mass] 29.5 pg 25.2 - 33.5 pg [facility] MCHC (RBC) [Mass/Vol] 32.8 g/dL 28.4 - 34.8 g/dL [facility] MCV (RBC) [Entitic vol] 90.1 fL 82.6 - 102.9 fL [facility] NRBC Automated 0.0 0.0 per 100 WBC [facility] Platelet distribution width (Bld) [Ratio] 11.8 % 11.8 - 14.4 % [facility] Platelet mean volume (Bld) [Entitic vol] 10.7 fL 8.1 - 13.5 fL [facility] Platelets (Bld) [#/Vol] 208 10*3/uL [facility] RBC (Bld) [#/Vol] 3.93 10*6/uL Low 4.21 - 5.7 7 m/uL [facility] WBC (Bld) [#/Vol] 3.5 10*3/uL [facility] EKG Rhythm Stripon 2 [facility] Laboratory - Chemistry and C hemistry - challengeon 05-30-2021 GFR/1.73 sq M.predicted MDRD (S/P/Bld) [Vol rate/Area] [facility] Comment on above: Average GFR for 60-6 9 years old: 85 mL/min/1.73sq m Chronic Kidney Disease: <60 mL/min/1.73sq m Kidney failure: <15 mL/min/1.73sq m eGFR calculated using average adult body mass. Additional eGFR calculator available at: http://www.Wakie/Budist.Satispay/multiple_crcl_2012.htm Stage 1: Some kidney damage normal GFR Stage 2: Mild kidney damage GFR 60-89 Stage 3: Moderate kidney damage GFR 30-59 Stage 4: Severe kidney damage GFR 15-29 Stage 5: Severe kidney damage GFR <15 ESRD - chronic treatment by dialysis or transplant Troponinon 05-30-2021 Interpretation and review of laboratory results Abnormal [facility] Troponin Interp NOT REPORTED [facility] Troponin T NOT REPORTED <0.03 ng/mL [employer] [facility], High Sensitivity 54 ng/L Critically high 0 - 22 ng/L [facility] Comment on above: High Sensitivity Troponin values cannot be compared with other Troponin methodologies. Patients with high levels of Biotin oral intake (i.e >5mg/day) may have falsely decreased Troponin levels. Samples collected within 8 hours of biotin intake may require additional information for diagnosis. [facility] XR HIP 2-3 VW W PELVIS LEFTo n 05-30-2021 No acute osseous abnormality in the pelvis or left hip. Mild degenerative changes. [facility] EXAMINATION: ONE X-RAY VIEW OF THE [...] are noted in the lower lumbar spine. [facility] Kerrie Elder DO - 05/30/2021 EXAMINATION: [...] pelvis or left hip. Mild degenerative changes. [employer] Work Phone: Radiology Study observation (narrative) [employer] rodr[employer] Work Phone: XR HIP 2-3 VW W PELVIS LEFTO rdered By: Kerrie Elder on 05-30-2021 [employer] Work Phone: Basic Metabolic Panelon Anion gap [Moles/Vol] 14 mmol/L 9 - 17 mmol/L [facility] Calcium [Mass/Vol] 9.7 mg/dL 8.6 - 10. 4 mg/dL [facility] Chloride [Moles/Vol] 102 mmol/L 98 - 10 7 mmol/L [facility] CO2 [Moles/Vol] 23 mmol/L 20 - 31 mmol/L [facility] Creatinine [Mass/Vol] 1.54 mg/dL High 0.70 - 1.20 mg/dL [facility] GFR 56 mL/min Low >60 [employer] GFR Non- 46 mL/min Low >60 [employer] Glucose [Mass/Vol] 98 mg/dL 70 - 99 mg/dL [facility] Interpretation and review of laboratory results Abnormal [facility] Potassium [Moles/Vol] 3.2 mmol/L Low 3.7 - 5.3 mmol/L [facility] Sodium [Moles/Vol] 139 mmol/L 135 - 144 mmol/L [facility] Urea nitrogen (BldV) [Mass/Vol] 20 mg/dL 8 - 23 mg/dL [facility] Urea nitrogen/Creatinine (Bld) [Mass ratio] [address] [facility] [address] 05-29-2021 Hematocrit (Bld) [Volume fraction] 39.5 % Low 40.7 - 50.3 % [facility] Hemoglobin.gastrointest inal spec 1 Ql (Stl) 13.1 g/dL 13.0 - 17.0 g/dL [facility] Interpretation and review of laboratory results Abnormal [facility] MCH (RBC) [Entitic mass] 29.6 pg 25.2 - 33.5 pg [facility] MCHC (RBC) [Mass/Vol] 33.2 g/dL 28.4 - 34.8 g/dL [facility] MCV (RBC) [Entitic vol] 89.4 fL 82.6 - 102.9 fL [facility] NRBC Automated 0.0 0.0 per 100 WBC [facility] Platelet distribution width (Bld) [Ratio] 11.8 % 11.8 - 14.4 % [employer] Platelet mean volume (Bld) [Entitic vol] 10.5 fL 8.1 - 13.5 fL [facility] Platelets (Bld) [#/Vol] 198 10*3/uL [employer] RBC (Bld) [#/Vol] 4.42 10*6/uL 4.21 - 5.7 7 m/uL [facility] WBC (Bld) [#/Vol] 4.4 10*3/uL [facility]ogra phy procedure details panelon 05-29-2021 Cardiac Diagnostic Report Demographics Patient LAURA Cosby Date of Study 05/29/2021 Name Date of 1960 Gender Male Age 60 year(s) Race Room [id number]^ROSEMARIE Height: 72 inch, 182.88 cm Number Corporate [id number] Weight: 231 pounds, 104.8 kg ID # Patient [id number] BSA: 2.26 m^2 BMI: 31.33 kg/m^2 Acct # MR # [id number] Performing Alice Mars Physician Referring # Physician [...] Right coronary angiography. Contrast Material: - Isovue 18817 ml Fluoroscopy Time: Diagnostic: 4:07 minutes. Total: [...] + (more content not included)... PN T [facility] Alice Mars MD - 05/29/2021 Cardiac Diagnostic Report Demographics Patient LAURA Cosby Date of Study 05/29/2021 Name Date of 1960 Gender Male Age 60 year(s) Race Room [id number]^ALISHA^ALICE Height: 72 inch, 182.88 cm Number Corporate [id number] Weight: 231 pounds, 104.8 kg ID # Patient [id number] BSA: 2.26 m^2 BMI: 31.33 kg/m^2 Acct # MR # [id number] Performing Alice Mars Physician Referring # Physician [...] Right coronary angiography. Contrast Material: - Isovue [id number] ml Fluoroscopy Time: Diagnostic: 4:07 minutes. Total: [...] assessed as CCS III according to the Barton clinical classifica (more content not included)... [facility] [employer] Work Phone: [facility] [employer] Work Phone: [facility] [employer] Phone: EKG Rhythm Stripon 2 [facility] Glucose, Whole Bloodon 05-29 Glucose [Mass/Vol] 97 mg/dL 74 - 100 mg/dL [facility] Glucose [Mass/Vol] 94 mg/dL 74 - 100 mg/dL [facility] Laboratory - Chemistry and C hemistry - challengeon 05-29-2021 GFR/1.73 sq M.predicted MDRD (S/P/Bld) [Vol rate/Area] [facility] Comment on above: Average GFR for 60-6 9 years old: 85 mL/min/1.73sq m Chronic Kidney Disease: <60 mL/min/1.73sq m Kidney failure: <15 mL/min/1.73sq m eGFR calculated using average adult body mass. Additional eGFR calculator available at: http://www.Teleus/multiple_crcl_2012.htm Stage 1: Some kidney damage normal GFR Stage 2: Mild kidney damage GFR 60-89 Stage 3: Moderate kidney damage GFR 30-59 Stage 4: Severe kidney damage GFR 15-29 Stage 5: Severe kidney damage GFR <15 ESRD - chronic treatment by dialysis or transplant Lipid Panelon 05-29-2021 Cholesterol [Mass/Vol] 109 mg/dL <200 [facility] Comment on above: Cholesterol Guidelines: <200 Desirable 200-240 Borderline >240 Undesirable Cholesterol in HDL [Mass/Vol] 19 mg/dL Low >40 [facility] Comment on above: HDL Guidelines: <40 Undesirable 40-59 Borderline >59 Desirable Cholesterol in LDL [Mass/Vol] 67 mg/dL 0 - 130 mg/dL [facility] Comment on above: LDL Guidelines: <100 Desirable 100-129 Near to/above Desirable 130-159 Borderline >159 Undesirable Direct (measured) LDL and calculated LDL are not interchangeable tests. Cholesterol in VLDL [Mass/Vol] NOT REPORTED 1 - 30 mg/dL [facility] Cholesterol.total/Shi sterol in HDL [Mass ratio] 5.7 {ratio} High <5 [facility] Interpretation and review of laboratory results Abnormal [facility] Triglyceride [Mass/Vol] 117 mg/dL <150 M [facility] Comment on above: Triglyceride Guidelines: <150 Desirable 150-199 Borderline 200-499 High >499 Very high Based on AHA Guidelines for fasting triglyceride, February 2012. [facility] Troponinon 05-29-2021 Interpretation and review of laboratory results Abnormal [facility] Troponin Interp NOT REPORTED [facility] Troponin T NOT REPORTED <0.03 ng/mL [facility] Troponin, High Sensitivity 58 ng/L Critically high 0 - 22 ng/L [facility] Comment on above: High Sensitivity Troponin values cannot be compared with other Troponin methodologies. Patients with high levels of Biotin oral intake (i.e >5mg/day) may have falsely decreased Troponin levels. Samples collected within 8 hours of biotin intake may require additional information for diagnosis. [facility] RENAL COMPLETEon 05-29-19 22 1. Bilateral uretera l jets are visualized. Urinary bladder grossly unremarkable. 2. Unremarkable renal ultrasound. No hydronephrosis. RECOMMENDATIONS: Unavailable [facility] CONSOLIDATED EXAMINATION: RETROPERITONEAL ULTRASOUND OF THE KIDNEYS [...] not be obtained due to patient immobility. [facility] Ravinder Tinoco MD - 05/29/2021 EXAMINATION: RETROPERITONEAL [...] Unremarkable renal ultrasound. No hydronephrosis. RECOMMENDATIONS: Unavailable [employer] Work Phone: Radiology Study observation (narrative) [employer] Work Phone: RENAL COMPLETEOrdered By: Ravinder Corona on 05-29-2021 [employer] Work Phone: Basic Metabolic Panelon Anion gap [Moles/Vol] 11 mmol/L 9 - 17 mmol/L [employer] Calcium [Mass/Vol] 10.7 mg/dL High 8.6 - 10. 4 mg/dL [employer] Chloride [Moles/Vol] 101 mmol/L 98 - 10 7 mmol/L [employer] CO2 [Moles/Vol] 25 mmol/L 20 - 31 mmol/L [facility] Creatinine [Mass/Vol] 1.4 mg/dL High 0.70 - 1.20 mg/dL [facility] GFR >60 >60 mL/min [facility] GFR Non- 52 mL/min Low >60 [facility] Glucose [Mass/Vol] 97 mg/dL 70 - 99 mg/dL [facility] Interpretation and review of laboratory results Abnormal [facility] Potassium [Moles/Vol] 3.6 mmol/L Low 3.7 - 5.3 mmol/L [facility] Sodium [Moles/Vol] 137 mmol/L 135 - 144 mmol/L [facility] Urea nitrogen (BldV) [Mass/Vol] 21 mg/dL 8 - 23 mg/dL [facility] Urea nitrogen/Creatinine (Bld) [Mass ratio] 15 [facility] CBCon 05-28-2021 Hematocrit (Bld) [Volume fraction] 38.7 % Low 40.7 - 50.3 % [facility] Hemoglobin.gastrointest inal spec 1 Ql (Stl) 13.2 g/dL 13.0 - 17.0 g/dL [facility] Interpretation and review of laboratory results Abnormal [facility] MCH (RBC) [Entitic mass] 30.2 pg 25.2 - 33.5 pg [facility] MCHC (RBC) [Mass/Vol] 34.1 g/dL 28.4 - 34.8 g/dL [facility] MCV (RBC) [Entitic vol] 88.6 fL 82.6 - 102.9 fL [facility] NRBC Automated 0.0 0.0 per 100 WBC [facility] Platelet distribution width (Bld) [Ratio] 11.8 % 11.8 - 14.4 % [facility] Platelet mean volume (Bld) [Entitic vol] 10.2 fL 8.1 - 13.5 fL [facility] Platelets (Bld) [#/Vol] 220 10*3/uL [facility] RBC (Bld) [#/Vol] 4.37 10*6/uL 4.21 - 5.7 7 m/uL [facility] WBC (Bld) [#/Vol] 3.8 10*3/uL [facility] EKG 12 leadon 05-28-2021 Atrial Rate 71 BPM [facility] [employer] Work Phone: P Nogal 27 degrees [employer] Work Phone: P-R Interval 132 ms [employer] Work Phone: Q-T Interval 406 ms [employer] Work Phone: QRS Duration 96 ms [employer] Work Phone: QTc Calculation (Bazett) 441 ms [employer] Work Phone: R Nogal -15 degrees [employer] Work Phone: T Nogal -82 degrees [employer] Work Phone: Ventricular Rate 71 BPM [employer] Work Phone: Poor data quality, interpretation may be adversely affected Normal sinus rhythm Left ventricular hypertrophy with repolarization abnormality Abnormal ECG When compared with ECG of 20-MAY-2021 15:00, Minimal criteria for Septal infarct are no longer Present Confirmed by Alma Kan MD ([id number]) on 05/28/2021 10:34:44 AM [facility] RADIOLOGY Alma Kan MD - 05/28/2021 Poor data quality, interpretation may be adversely affected Normal sinus rhythm Left ventricular hypertrophy with repolarization abnormality Abnormal ECG When compared with ECG of 20-MAY-2021 15:00, Minimal criteria for Septal infarct are no longer Present Confirmed by Alma Kan MD ([id number]) on 05/28/2021 10:34:44 AM [employer] Work Phone: [employer] Work Phone: EKG Rhythm Stripon [facility] LAB [facility] Routine [facility] Echocardiogram complete 2D w ith doppler with coloron 05-28-2021 [facility] Transthoracic Echocardiography Report (TTE) Patient Name LAURA Date of Study 05/28/2021 PIOTR A Date of 1960 Gender Male Age 60 year(s) Race Room Number 0335 Height: 72 inch, 182.88 cm Corporate ID [id number] Weight: 231 pounds, 104.8 kg # Patient Acct [id number] BSA: 2.26 m^2 BMI: 31.33 # kg/m^2 MR # [id number] [employer] Superintendent Hilda Arango Interpreting Physician Alma Kan Fellow Referring Nurse Cassie Morejon, HYDRAULIC PRESS OPERATOR Practitioner Interpreting Referring Physician Fellow Type of Study TTE procedure:2D Echocardiogram, M-Mode, Doppler, Color Doppler. Procedure Date Date: 05/28/2021 Start: 10:54 AM Study Location: [facility] Indications:Hypertens ion. History / Tech. Comments: Dx: [...] Lateral Wall E' velocity:0.08 m/s PN T [facility] Alma Kan MD - 05/28/2021 [facility] Transthoracic Echocardiography Report (TTE) Patient Name LAURA Date of Study 05/28/2021 PIOTR A Date of 1960 Gender Male Age 60 year(s) Race Room Number 0333 Height: 72 inch, 182.88 cm Corporate ID [id number] Weight: 231 pounds, 104.8 kg # Patient Acct [id number] BSA: 2.26 m^2 BMI: 31.33 # kg/m^2 MR # [id number] [employer] Storage Superintendent Hilda Arango Interpreting Physician Alma Kan Fellow Referring Nurse Cassie Morejon [facility] Practitioner Interpreting Referring Physician Fellow Type of Study TTE procedure:2D Echocardiogram, M-Mode, Doppler, Color Doppler. Procedure Date Date: 05/28/2021 Start: 10:54 AM Study Location: [facility] Indications:Hypertens ion. History / Tech. Comments: Dx: [...] 30.06 cm Lateral Wall E' velocity:0.08 m/s [employer] Work Phone: [employer] Work Phone: Glucose, Whole Bloodon 05-28 Glucose [Mass/Vol] 147 mg/dL High 74 - 100 mg/dL [employer] Interpretation and review of laboratory results Abnormal [facility] Glucose [Mass/Vol] 76 mg/dL 74 - 100 mg/dL [facility] Glucose [Mass/Vol] 129 mg/dL High 74 - 100 mg/dL [facility] Interpretation and review of laboratory results Abnormal [facility] Glucose [Mass/Vol] 77 mg/dL 74 - 100 mg/dL [facility] Glucose [Mass/Vol] 75 mg/dL 74 - 100 mg/dL [facility] Hemoglobin A1con 05-28-2021 Glucose [Mass/Vol] 137 mg/dL [facility] Comment on above: The ADA and AACC rec ommend providing the estimated average glucose result to permit better patient understanding of their HBA1c result. HbA1c (Bld) [Mass fraction] 6.4 % High 4.0 - 6.0 % [facility] Interpretation and review of laboratory results Abnormal [facility] Laboratory - Chemistry and C hemistry - challengeon 05-28-2021 GFR/1.73 sq M.predicted MDRD (S/P/Bld) [Vol rate/Area] [facility] Comment on above: Average GFR for 60-6 9 years old: 85 mL/min/1.73sq m Chronic Kidney Disease: <60 mL/min/1.73sq m Kidney failure: <15 mL/min/1.73sq m eGFR calculated using average adult body mass. Additional eGFR calculator available at: http://www.Teleus/multiple_crcl_2012.htm Stage 1: Some kidney damage normal GFR Stage 2: Mild kidney damage GFR 60-89 Stage 3: Moderate kidney damage GFR 30-59 Stage 4: Severe kidney damage GFR 15-29 Stage 5: Severe kidney damage GFR <15 ESRD - chronic treatment by dialysis or transplant Troponinon 05-28-2021 Interpretation and review of laboratory results Abnormal [facility] Troponin Interp NOT REPORTED [facility] Troponin T NOT REPORTED <0.03 ng/mL [facility] Troponin, High Sensitivity 60 ng/L Critically high 0 - 22 ng/L [facility] Comment on above: High Sensitivity Troponin values cannot be compared with other Troponin methodologies. Patients with high levels of Biotin oral intake (i.e >5mg/day) may have falsely decreased Troponin levels. Samples collected within 8 hours of biotin intake may require additional information for diagnosis. [facility] Basic Metabolic Panel w/ Ref willam to MGon 05-27-2021 Anion gap [Moles/Vol] 10 mmol/L 9 - 17 mmol/L [facility] Calcium [Mass/Vol] 10.9 mg/dL High 8.6 - 10. 4 mg/dL [facility] Chloride [Moles/Vol] 101 mmol/L 98 - 10 7 mmol/L [facility] CO2 [Moles/Vol] 26 mmol/L 20 - 31 mmol/L [facility] Creatinine [Mass/Vol] 1.24 mg/dL High 0.70 - 1.20 mg/dL [facility] GFR >60 >60 mL/min [facility] GFR Non- 59 mL/min Low >60 [facility] Glucose [Mass/Vol] 133 mg/dL High 70 - 99 mg/dL [facility] Interpretation and review of laboratory results Abnormal [facility] Potassium [Moles/Vol] 3.7 mmol/L 3.7 - 5.3 mmol/L [facility] Sodium [Moles/Vol] 137 mmol/L 135 - 144 mmol/L [facility] Urea nitrogen (BldV) [Mass/Vol] 19 mg/dL 8 - 23 mg/dL [facility] Urea nitrogen/Creatinine (Bld) [Mass ratio] 15 [facility] CBC auto differentialon Absolute Eos # 0.03 [facility] th Absolute Immature Granulocyte <0.03 [facility] Absolute Lymph # 0.78 Low [facility] alth Absolute [place] # 0.87 [facility] lth Basophils (Bld) [#/Vol] 0.03 10*3/uL [facility] Basophils/100 WBC (Bld) 1 % 0 - 2 % M [facility] Differential Type NOT REPORTED [facility] Eosinophils/100 WBC (Bld) 1 % 1 - 4 % [facility] Hematocrit (Bld) [Volume fraction] 37.5 % Low 40.7 - 50.3 % [facility] Hemoglobin.gastrointest inal spec 1 Ql (Stl) 12.6 g/dL Low 13.0 - 17.0 g/dL [facility] Immature granulocytes/100 WBC (Bld) 0 % 0 [facility] Interpretation and review of laboratory results Abnormal [facility] Lymphocytes/100 WBC (Bld) 15 % Low 24 - 43 % [facility] MCH (RBC) [Entitic mass] 30.1 pg 25.2 - 33.5 pg [facility] MCHC (RBC) [Mass/Vol] 33.6 g/dL 28.4 - 34.8 g/dL [facility] MCV (RBC) [Entitic vol] 89.5 fL 82.6 - 102.9 fL [facility] Monocytes/100 WBC (Bld) 17 % High 3 - 12 % M [facility] NRBC Automated 0.0 0.0 per 100 WBC [facility] Platelet distribution width (Bld) [Ratio] 11.7 % Low 11.8 - 14.4 % [facility] Platelet Estimate NOT REPORTED [facility] Platelet mean volume (Bld) [Entitic vol] 10.2 fL 8.1 - 13.5 fL [facility] Platelets (Bld) [#/Vol] 238 10*3/uL [facility] RBC (Bld) [#/Vol] 4.19 10*6/uL Low 4.21 - 5.7 7 m/uL [facility] RBC (Bld) [#/Vol] NOT REPORTED [facility] Segmented neutrophils/100 WBC (Bld) 67 % High 36 - 65 % [facility] Segs Absolute 3.50 [facility] WBC (Bld) [#/Vol] 5.2 10*3/uL [facility] WBC (Bld) [#/Vol] NOT REPORTED [facility] Glucose, Whole Bloodon 05-27 Glucose [Mass/Vol] 146 mg/dL High 74 - 100 mg/dL [facility] Interpretation and review of laboratory results Abnormal [facility] Laboratory - Chemistry and C hemistry - challengeon 05-27-2021 GFR/1.73 sq M.predicted MDRD (S/P/Bld) [Vol rate/Area] [facility] Comment on above: Average GFR for 60-6 9 years old: 85 mL/min/1.73sq m Chronic Kidney Disease: <60 mL/min/1.73sq m Kidney failure: <15 mL/min/1.73sq m eGFR calculated using average adult body mass. Additional eGFR calculator available at: http://www.Wakie/Budist.Satispay/multiple_crcl_2011.htm Stage 1: Some kidney damage normal GFR Stage 2: Mild kidney damage GFR 60-89 Stage 3: Moderate kidney damage GFR 30-59 Stage 4: Severe kidney damage GFR 15-29 Stage 5: Severe kidney damage GFR <15 ESRD - chronic treatment by dialysis or transplant Troponinon 05-27-2021 Interpretation and review of laboratory results Abnormal [employer] Troponin Interp NOT REPORTED [facility] ealt Troponin T NOT REPORTED <0.03 ng/mL [facility] Troponin, High Sensitivity 45 ng/L High 0 - 22 ng/L [facility] Comment on above: High Sensitivity Troponin values cannot be compared with other Troponin methodologies. Patients with high levels of Biotin oral intake (i.e >5mg/day) may have falsely decreased Troponin levels. Samples collected within 8 hours of biotin intake may require additional information for diagnosis. [employer] XR CHEST (2 VW)on 05-27-2021 No acute cardiopulmonary process [facility] RIS CONSOLIDATED EXAMINATION: TWO XRAY VIEWS OF [...] is present. IMPRESSION: No acute cardiopulmonary process [employer] Work Phone: Radiology Study observation (narrative) [employer] [facility] Work Phone: XR CHEST (2 VW)Ordered By: Jn Saul on 05-27-2021 [employer] Work Phone: Coding Summary.on 08-30-2020 Coding Summary. 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 However, the narrative phrase printed from the coding software may appear abbreviated, or result in slightly different terminology. Coded By: Libra De La O CphT Date Saved: 08/30/2020 10:57 am Normal [facility] Consent for Treatmenton Consent for Treatment [id number] 104 [id number]:127 Normal [facility] Echo Transthoracic Completeo n 08-28-2020 Echo Transthoracic Complete Echocardiology Procedure Exam Date/Time Accession # Ordering Echo Transthoracic 08/28/2020 11:32 EDT [id number] Helder GREENBERG, Antonio Lehman Complete CPT code [id number] Reason for Exam (Echo Transthoracic Complete) CAD;CAD [...] MD Transcribed by: viji Technologist: CARI Tan [facility] Otheron 07-25-2020 Casts UA NOT REPORTED /LPF [employer] Work Phone: Urinalysis with Microscopico n 07-25-2020 Amorphous, UA NOT REPORTED None [facility] Work Phone: Bacteria, UA TRACE Abnormal None [employer] Work Phone: Bilirubin Urine Negative NEGATIVE [facility] Work Phone: Color, UA YELLOW YELLOW [employer] Work Phone: Crystals, UA NOT REPORTED None /HPF [employer] [facility] Work Phone: Epithelial Cells UA 0 TO 2 [employer] Work Phone: Glucose, Ur Negative NEGATIVE [employer] Work Phone: Interpretation and review of laboratory results Abnormal [facility] Work Phone: Ketones Ql (U) Negative NEGATIVE [facility] Work Phone: Leukocyte esterase Test strip Ql (U) Negative NEGATIVE [facility] [employer] Work Phone: Mucus, UA TRACE Abnormal None [facility] [employer] Work Phone: Nitrite, Urine Negative NEGATIVE [facility] Work Phone: Other Observations UA NOT REPORTED NOT REQ. [facility] Work Phone: pH, UA 5.5 [facility] [employer] Work Phone: Protein (U) [Mass/Vol] 1+ Abnormal NEGATIVE [facility] [employer] Work Phone: RBC (U) [#/Vol] None [facility] Work Phone: Renal Epithelial, UA NOT REPORTED 0 /HPF [facility] [employer] Work Phone: Specific [place], UA 1.025 High [facility] [employer] Work Phone: Trichomonas, UA NOT REPORTED None [facility]alt Work Phone: Turbidity UA CLEAR CLEAR [facility] [employer] Work Phone: Urinalysis Comments NOT REPORTED [facility] Work Phone: Urine Hgb Negative NEGATIVE [facility] [employer] Work Phone: Urobilinogen, Urine Normal Normal [facility] [employer] Work Phone: WBC, UA 0 TO 2 [facility] [employer] Work Phone: Yeast, UA NOT REPORTED None [facility] [employer] Work Phone: - [facility] [employer] Work Phone: Coding Summary.on 06-01-2020 Coding Summary. 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/antip latelets Z79.82 USP (current) use of aspirin Z79.84 USP (current) use of oral hypoglycemic drugs Z79.899 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 No hx AMI. No statin No records. Stented in [facility]. NO chest discomfort now or then Did have some lethargy then EKG today, NSR LVH, repol abn Hx stroke 2019 hx DM BP is high lately. taking norvasc 2.5mg, lisinopril 10, toprol 50mg. Stroke afftected lle and LUE. 06/2019. Was see in [place]. No records. Thinks non-hemorrhagic BS was >600 [...] Family History Acute myocardial infarction: Father. Normal [facility] Comment on above: Result Comment: Elec tronically Signed By: Helder GREENBERG, Antonio Robbins\Date and Time Signed: 04/26/20 14:57 EST Vital Signs Date Time Vital Sign Value Performing Clinician Facility 12-27-2024 10:44-0400 Body temperature 98.01 [degF] Quincy Penn DPM Work Phone: [facility] 12-27-2024 10:44-0400 Diastolic blood pressure 59 mm[Hg] Quincy Penn DPM Work Phone: [facility] 12-27-2024 10:44-0400 Heart rate 64 /min Quincy Penn DPM Work Phone: [facility] 12-27-2024 10:44-0400 Respiratory rate 20 /min Quincy Penn DPM Work Phone: [facility] 12-27-2024 10:44-0400 Systolic blood pressure 132 mm[Hg] Quincy Penn DPM Work Phone: [facility] 12-23-2024 13:29-0400 Body height 182.88 cm Jorge Ball DO Work Phone: [facility] 12-23-2024 13:29-0400 Body mass index (BMI) [Ratio] 34.9 kg/m2 Jorge Ball DO Work Phone: [facility] 12-23-2024 13:29-0400 Body weight 117.02 kg Jorge Ball DO Work Phone: [facility] 12-23-2024 13:29-0400 Diastolic blood pressure 71 mm[Hg] Jorge Ball DO Work Phone: [facility] 12-23-2024 13:29-0400 Heart rate 71 /min Jorge Ball DO Work Phone: [facility] 12-23-2024 13:29-0400 Respiratory rate 14 /min Jorge Ball DO Work Phone: [facility] 12-23-2024 13:29-0400 SaO2% (BldA) [Mass fraction] 97 % Jorge Ball DO Work Phone: [facility] 12-23-2024 13:29-0400 Systolic blood pressure 114 mm[Hg] Jorge Pritchett DO Work Phone: [facility] 12-06-2024 12:05-0400 Respiratory rate 20 /min Quincy Penn DPM Work Phone: [facility] 11-22-2024 11:01-0400 Body temperature 97.81 [degF] Quincy Penn DPM Work Phone: [facility] 11-22-2024 11:01-0400 Diastolic blood pressure 60 mm[Hg] Quincy Penn DPM Work Phone: [facility] 11-22-2024 11:01-0400 Heart rate 67 /min Quincy Penn DPM Work Phone: [facility] 11-22-2024 11:01-0400 Respiratory rate 20 /min Quincy Penn DPM Work Phone: [facility] 11-22-2024 11:01-0400 Systolic blood pressure 145 mm[Hg] Quincy Penn DPM Work Phone: [facility] 11-15-2024 08:54-0400 Body temperature 98.49 [degF] Quincy Penn DPM Work Phone: [facility] 11-15-2024 08:54-0400 Diastolic blood pressure 61 mm[Hg] Quincy Penn DPM Work Phone: [facility] 11-15-2024 08:54-0400 Heart rate 61 /min Quincy Penn DPM Work Phone: [facility] 11-15-2024 08:54-0400 Respiratory rate 18 /min Quincy Penn DPM Work Phone: [facility] 11-15-2024 08:54-0400 Systolic blood pressure 133 mm[Hg] Quincy Penn DPM Work Phone: [facility] 11-11-2024 09:30-0400 Diastolic blood pressure 58 mm[Hg] Quincy Penn DPM Work Phone: [facility] [employer] 11-11-2024 09:30-0400 Heart rate 64 /min Quincy Penn DPM Work Phone: [facility] [employer] 11-11-2024 09:30-0400 Respiratory rate 16 /min Quincy Penn DPM Work Phone: [facility] [employer] 11-11-2024 09:30-0400 SaO2% (BldA) [Mass fraction] 96 % Quincy Penn DPM Work Phone: [facility] [employer] 11-11-2024 09:30-0400 Systolic blood pressure 164 mm[Hg] Quincy Penn DPM Work Phone: [facility] [employer] 11-11-2024 08:51-0400 Body temperature 97.7 [degF] Quincy Zelayacaitlintiffany DPM Work Phone: [facility] 11-11-2024 06:30-0400 Body height 182.9 cm Quincy iRchardstiffany DPM Work Phone: [facility] [employer] 11-11-2024 06:30-0400 Body mass index (BMI) [Ratio] 35.53 kg/m2 Quincy Davonte DPM Work Phone: [facility] 11-11-2024 06:30-0400 Body weight 118.84 kg Quincy Davonte DPM Work Phone: [facility] 11-09-2024 13:45-0400 Body height 182.9 cm Alice Cochran DPM Work Phone: [facility] 11-09-2024 13:45-0400 Body mass index (BMI) [Ratio] 35.26 kg/m2 Alice Cochran DPM Work Phone: [facility] 11-09-2024 13:45-0400 Body temperature 98.01 [degF] Alice Cochran DPM Work Phone: [facility] 11-09-2024 13:45-0400 Body weight 117.94 kg Alice Cochran DPM Work Phone: [facility] 11-01-2024 11:32-0400 Body temperature 98.1 [degF] Quincy Penn DPM Work Phone: [facility] 11-01-2024 11:32-0400 Diastolic blood pressure 74 mm[Hg] Quincy Penn DPM Work Phone: [facility] 11-01-2024 11:32-0400 Heart rate 69 /min Quincy Penn DPM Work Phone: [facility] 11-01-2024 11:32-0400 Respiratory rate 20 /min Quincy Penn DPM Work Phone: [facility] 11-01-2024 11:32-0400 Systolic blood pressure 153 mm[Hg] Quincy Penn DPM Work Phone: [facility] 10-04-2024 11:14-0400 Body mass index (BMI) [Ratio] 34.75 kg/m2 Quincy Penn DPM Work Phone: [facility] 10-04-2024 11:14-0400 Body temperature 97.59 [degF] Quincy Penn DPM Work Phone: [facility] 10-04-2024 11:14-0400 Body weight 116.21 kg Quincy Penn DPM Work Phone: [facility] 10-04-2024 11:14-0400 Diastolic blood pressure 68 mm[Hg] Quincy Penn DPM Work Phone: [facility] 10-04-2024 11:14-0400 Heart rate 68 /min Quincy Penn DPM Work Phone: [facility] [employer] 10-04-2024 11:14-0400 Respiratory rate 20 /min Quincy Penn DPM Work Phone: [facility] 10-04-2024 11:14-0400 Systolic blood pressure 130 mm[Hg] Quincy Penn DPM Work Phone: [facility] 09-21-2024 14:30-0400 Body height 182.88 cm [facility] 09-21-2024 14:30-0400 Body mass index (BMI) [Ratio] 34.7 kg/m2 [facility] 09-21-2024 14:30-0400 Body weight 116.23 kg [facility] 09-21-2024 14:30-0400 Diastolic blood pressure 56 mm[Hg] [facility] 09-21-2024 14:30-0400 Heart rate 72 /min [facility] 09-21-2024 14:30-0400 Respiratory rate 12 /min [facility] 09-21-2024 14:30-0400 SaO2% (BldA) [Mass fraction] 99 % [facility] 09-21-2024 14:30-0400 Systolic blood pressure 105 mm[Hg] [facility] 09-06-2024 11:34-0400 Body temperature 97.39 [degF] Quincy Penn DPM Work Phone: [facility] 09-06-2024 11:34-0400 Diastolic blood pressure 55 mm[Hg] Quincy Penn DPM Work Phone: [facility] 09-06-2024 11:34-0400 Heart rate 69 /min Quincy Penn DPM Work Phone: [facility] 09-06-2024 11:34-0400 Respiratory rate 16 /min Quincy Penn DPM Work Phone: [facility] 09-06-2024 11:34-0400 Systolic blood pressure 109 mm[Hg] Quincy Penn DPM Work Phone: [facility] 08-16-2024 11:42-0400 Body height 182.9 cm Quincy PECKM Work Phone: [employer] 08-16-2024 11:42-0400 Body mass index (BMI) [Ratio] 36.48 kg/m2 Quincy Penn DPM Work Phone: [facility] [employer] 08-16-2024 11:42-0400 Body weight 122 kg Quincy Penn DPM Work Phone: [employer] [facility] Comment on above: as of 07/2308-16-2024 11:42-0400 Heart rate 86 /min Quincy Penn DPM Work Phone: [facility] 08-16-2024 11:34-0400 Body temperature 98.2 [degF] Quincy Penn DPM Work Phone: [facility] 08-16-2024 11:34-0400 Diastolic blood pressure 54 mm[Hg] Quincy Penn DPM Work Phone: [facility] 08-16-2024 11:34-0400 Respiratory rate 16 /min Quincy Penn DPM Work Phone: [facility] 08-16-2024 11:34-0400 Systolic blood pressure 142 mm[Hg] Quincy Penn DPM Work Phone: [facility] Center[facility] 08-05-2024 13:27-0400 Body height 182.88 cm [facility] 08-05-2024 13:27-0400 Body mass index (BMI) [Ratio] 34.9 kg/m2 [facility] 08-05-2024 13:27-0400 Body weight 116.68 kg [facility] 08-05-2024 13:27-0400 Diastolic blood pressure 84 mm[Hg] [facility] 08-05-2024 13:27-0400 Heart rate 76 /min [facility] 08-05-2024 13:27-0400 SaO2% (BldA) [Mass fraction] 98 % [facility] 08-05-2024 13:27-0400 Systolic blood pressure 146 mm[Hg] [facility] 07-23-2024 08:30-0500 Diastolic blood pressure 52 mm[Hg] Maribel Llanos DO Work Phone: [facility] 07-23-2024 08:30-0500 Heart rate 83 /min Maribel Mejiasbal DO Work Phone: [facility] 07-23-2024 08:30-0500 Respiratory rate 12 /min Maribel Llanos DO Work Phone: [facility] 07-23-2024 08:30-0500 SaO2% (BldA) [Mass fraction] 99 % Maribel Llanos DO Work Phone: [facility] 07-23-2024 08:30-0500 Systolic blood pressure 129 mm[Hg] Maribel Llanos DO Work Phone: [facility] 07-23-2024 05:29-0500 Body mass index (BMI) [Ratio] 36.48 kg/m2 Maribel Llanos DO Work Phone: [facility] 07-23-2024 05:29-0500 Body weight 122 kg Maribel Llanos DO Work Phone: [facility] 07-22-2024 23:51-0500 Body temperature 97.81 [degF] Maribel Llanos DO Work Phone: [facility] 07-12-2024 14:58-0500 Body height 182.88 cm [facility] 07-12-2024 14:58-0500 Body mass index (BMI) [Ratio] 36.2 kg/m2 [facility] 07-12-2024 14:58-0500 Body weight 121.27 kg [facility] 07-12-2024 14:58-0500 Diastolic blood pressure 89 mm[Hg] [facility] 07-12-2024 14:58-0500 Heart rate 61 /min [facility] 07-12-2024 14:58-0500 SaO2% (BldA) [Mass fraction] 96 % [facility] 07-12-2024 14:58-0500 Systolic blood pressure 139 mm[Hg] [facility] 07-12-2024 10:49-0500 Diastolic blood pressure 61 mm[Hg] Quincy Penn DPM Work Phone: [facility] 07-12-2024 10:49-0500 Heart rate 59 /min Quincy Penn DPM Work Phone: [facility] 07-12-2024 10:49-0500 Systolic blood pressure 136 mm[Hg] Quincy Penn DPM Work Phone: [facility] 07-12-2024 10:34-0500 Body temperature 97.5 [degF] Quincy Penn DPM Work Phone: [facility] 07-12-2024 10:34-0500 Respiratory rate 22 /min Quincy Penn DPM Work Phone: [facility] 05-26-2024 15:18-0500 Body height 182.9 cm Alice Cochran DPM Work Phone: [facility] 05-26-2024 15:18-0500 Body mass index (BMI) [Ratio] 36.08 kg/m2 Alice Cochran DPM Work Phone: [facility] 05-26-2024 15:18-0500 Body weight 120.66 kg Alice Cochran DPM Work Phone: [facility] 05-12-2024 11:55-0500 Body height 182.88 cm [facility] 05-12-2024 11:55-0500 Body mass index (BMI) [Ratio] 35.9 kg/m2 [facility] 05-12-2024 11:55-0500 Body weight 119.97 kg [facility] 05-12-2024 11:55-0500 Diastolic blood pressure 74 mm[Hg] [facility] 05-12-2024 11:55-0500 Heart rate 59 /min [facility] 05-12-2024 11:55-0500 Respiratory rate 12 /min [facility] 05-12-2024 11:55-0500 Systolic blood pressure 176 mm[Hg] [facility] 03-23-2024 13:47-0400 Body height 182.9 cm Alice Cochran DPM Work Phone: [facility] 03-23-2024 13:47-0400 Body mass index (BMI) [Ratio] 36.08 kg/m2 Alice Cochran DPM Work Phone: [facility] 03-23-2024 13:47-0400 Body weight 120.66 kg Alice Mary DPM Work Phone: [facility] 02-28-2024 08:15-0400 Diastolic blood pressure 65 mm[Hg] Gabby Orlando MD Work Phone: [facility] 02-28-2024 08:15-0400 Systolic blood pressure 122 mm[Hg] Gabby Orlando MD Work Phone: [facility] 02-28-2024 07:43-0400 SaO2% (BldA) [Mass fraction] 90 % Gabby Orlando MD [facility] Phone: [facility] 02-28-2024 05:50-0400 Body temperature 98.6 [degF] Gabby Orlando MD Work Phone: [facility] [employer] 02-28-2024 05:50-0400 Heart rate 61 /min Gabby Orlando MD Work Phone: [facility] 02-28-2024 05:50-0400 Respiratory rate 20 /min Gabby Orlando MD Work Phone: [facility] [employer] 02-27-2024 08:02-0400 Body temperature 97.9 [degF] Fred Villegas MD Work Phone: [facility] [employer] 02-27-2024 08:02-0400 Diastolic blood pressure 68 mm[Hg] Fred Villegas MD Work Phone: [facility] [employer] 02-27-2024 08:02-0400 Heart rate 64 /min Fred Villegas MD Work Phone: [facility] 02-27-2024 08:02-0400 Respiratory rate 22 /min Fred Villegas MD Work Phone: [facility] [employer] 02-27-2024 08:02-0400 SaO2% (BldA) [Mass fraction] 96 % Fred Villegas MD Work Phone: [facility] [employer] 02-27-2024 08:02-0400 Systolic blood pressure 153 mm[Hg] Fred Villegas MD Work Phone: [facility] 02-27-2024 05:30-0400 Body mass index (BMI) [Ratio] 36.89 kg/m2 Fred Villegas MD Work Phone: [facility] 02-27-2024 05:30-0400 Body weight 123.38 kg Fred Villegas MD Work Phone: [facility] [employer] 02-25-2024 08:37-0400 Body height 182.9 cm Fred Villegas MD Work Phone: [facility] 02-17-2024 09:55-0400 Body height 182.9 cm Alice Cochran DPM Work Phone: [facility] 02-17-2024 09:55-0400 Body mass index (BMI) [Ratio] 36.08 kg/m2 Alice Cochran DPM Work Phone: [facility] 02-17-2024 09:55-0400 Body temperature 98.01 [degF] Alice Cochran DPM Work Phone: [facility] 02-17-2024 09:55-0400 Body weight 120.66 kg Alice Cochran DPM Work Phone: [facility] 02-05-2024 10:04-0400 Body height 182.9 cm Alice Cochran DPM Work Phone: [facility] 02-05-2024 10:04-0400 Body mass index (BMI) [Ratio] 36.08 kg/m2 Alice Cochran DPM Work Phone: [facility] 02-05-2024 10:04-0400 Body weight 120.66 kg Alice Cochran DPM Work Phone: [facility] 02-03-2024 11:11-0400 Body height 182.88 cm [facility] 02-03-2024 11:11-0400 Body mass index (BMI) [Ratio] 37.4 kg/m2 [facility] 02-03-2024 11:11-0400 Body weight 125.19 kg [facility] 02-03-2024 11:11-0400 Diastolic blood pressure 82 mm[Hg] [facility] 02-03-2024 11:11-0400 Heart rate 70 /min [facility] 02-03-2024 11:11-0400 Respiratory rate 24 /min [facility] 02-03-2024 11:11-0400 Systolic blood pressure 151 mm[Hg] [facility] 12-21-2023 15:30-0400 Diastolic blood pressure 65 mm[Hg] Tigist Correa MD Work Phone: [facility] 12-21-2023 15:30-0400 Heart rate 67 /min Tigist Correa MD Work Phone: [facility] 12-21-2023 15:30-0400 Respiratory rate 12 /min Tigist Correa MD Work Phone: [facility] 12-21-2023 15:30-0400 SaO2% (BldA) [Mass fraction] 98 % Tigist Correa MD Work Phone: [facility] [employer] [facility] 12-21-2023 15:30-0400 Systolic blood pressure 146 mm[Hg] Tigist Correa MD Work Phone: [facility] [employer] 12-21-2023 12:50-0400 Body temperature 97.3 [degF] Tigist Correa MD Work Phone: [facility] [employer] 12-21-2023 08:11-0400 Body height 182.9 cm Tigist Correa MD Work Phone: [facility] [employer] 12-21-2023 08:11-0400 Body mass index (BMI) [Ratio] 36.77 kg/m2 Tigist Correa MD Work Phone: [facility] 12-21-2023 08:11-0400 Body weight 123 kg Tigist Correa MD Work Phone: [facility] 11-10-2023 11:48-0400 Body height 182.88 cm [facility] 11-10-2023 11:48-0400 Body mass index (BMI) [Ratio] 36.6 kg/m2 [facility] 11-10-2023 11:48-0400 Body weight 122.52 kg [facility] 11-10-2023 11:48-0400 Diastolic blood pressure 83 mm[Hg] [facility] 11-10-2023 11:48-0400 Heart rate 74 /min [facility] 11-10-2023 11:48-0400 Respiratory rate 20 /min [facility] 11-10-2023 11:48-0400 Systolic blood pressure 130 mm[Hg] [facility] 11-03-2023 09:05-0400 Diastolic blood pressure 66 mm[Hg] Akira Ferrer MD Work Phone: [facility] 11-03-2023 09:05-0400 SaO2% (BldA) [Mass fraction] 95 % Akira Ferrer MD Work Phone: [facility] [employer] 11-03-2023 09:05-0400 Systolic blood pressure 210 mm[Hg] Akira Ferrer MD Work Phone: [facility] [employer] 11-03-2023 09:00-0400 Heart rate 65 /min Akira Ferrer MD Work Phone: [facility] [employer] 11-03-2023 09:00-0400 Respiratory rate 20 /min Akira Ferrer MD Work Phone: [facility] [employer] 11-03-2023 07:26-0400 Body height 182.9 cm Akira Ferrer MD Work Phone: [facility] 11-03-2023 07:26-0400 Body mass index (BMI) [Ratio] 37.3 kg/m2 Akira Ferrer MD Work Phone: [facility] 11-03-2023 07:26-0400 Body temperature 97.39 [degF] Akira Ferrer MD Work Phone: [facility] 11-03-2023 07:26-0400 Body weight 124.74 kg Akira Ferrer MD Work Phone: [facility] 08-12-2023 11:49-0400 Body height 182.88 cm [facility] 08-12-2023 11:49-0400 Body mass index (BMI) [Ratio] 39.4 kg/m2 [facility] 08-12-2023 11:49-0400 Body weight 131.71 kg [facility] 08-12-2023 11:49-0400 Diastolic blood pressure 80 mm[Hg] [facility] 08-12-2023 11:49-0400 Heart rate 96 /min [facility] 08-12-2023 11:49-0400 Respiratory rate 20 /min [facility] 08-12-2023 11:49-0400 Systolic blood pressure 130 mm[Hg] [facility] 05-13-2023 11:30-0500 Body height 182.88 cm Jorge Yarely Other [employer] Other 05-13-2023 11:30-0500 Body mass index (BMI) [Ratio] 36.37 kg/m2 Jorge Ball Other [employer] Other 05-13-2023 11:30-0500 Body weight 121.66 kg Jorge Ball Other [employer] Other 05-13-2023 11:30-0500 Diastolic blood pressure 75 mm[Hg] Jorge Ball Other [employer] Other 05-13-2023 11:30-0500 Respiratory rate 20 /min Jorge Ball Other [employer] Other 05-13-2023 11:30-0500 SaO2% (BldA) [Mass fraction] 99 % Jorge Ball Other [employer] Other 05-13-2023 11:30-0500 Systolic blood pressure 189 mm[Hg] Jorge Ball Other [employer] Other 02-11-2023 11:30-0400 Body height 182.88 cm Jorge Ball Other [employer] Other 02-11-2023 11:30-0400 Body mass index (BMI) [Ratio] 33.63 kg/m2 Jorge Ball Other [employer] Other 02-11-2023 11:30-0400 Body weight 112.49 kg Jorge Ball Other [employer] Other 02-11-2023 11:30-0400 Diastolic blood pressure 94 mm[Hg] Jorge Ball Other [employer] Other 02-11-2023 11:30-0400 Respiratory rate 20 /min Jorge Ball Other [employer] Other 02-11-2023 11:30-0400 SaO2% (BldA) [Mass fraction] 98 % Jorge Ball Other [employer] Other 02-11-2023 11:30-0400 Systolic blood pressure 195 mm[Hg] Jorge Ball Other [employer] Other 11-11-2022 11:30-0400 Body height 182.88 cm Jorge Ball Other [employer] Other 11-11-2022 11:30-0400 Body mass index (BMI) [Ratio] 34.09 kg/m2 Jorge Ball Other [employer] Other 11-11-2022 11:30-0400 Body weight 114.04 kg Jorge Ball Other [employer] Other 11-11-2022 11:30-0400 Diastolic blood pressure 77 mm[Hg] Jorge Ball Other [employer] Other 11-11-2022 11:30-0400 Respiratory rate 20 /min Jorge Ball Other [employer] 11-11-2022 11:30-0400 SaO2% (BldA) [Mass fraction] 98 % Jorge Ball Other [employer] Other 11-11-2022 11:30-0400 Systolic blood pressure 164 mm[Hg] Jorge Ball Other [employer] Other 08-11-2022 12:00-0400 Body height 182.88 cm Jorge Ball Other [employer] Other 08-11-2022 12:00-0400 Body mass index (BMI) [Ratio] 33.39 kg/m2 Jorge Ball Other [employer] Other 08-11-2022 12:00-0400 Body weight 111.68 kg Jorge Viveve Other [employer] Other 08-11-2022 12:00-0400 Diastolic blood pressure 70 mm[Hg] Jorge Viveve Other [employer] Other 08-11-2022 12:00-0400 Respiratory rate 16 /min Jorge Viveve Other [employer] Other 08-11-2022 12:00-0400 Systolic blood pressure 146 mm[Hg] Jorge Viveve Other [employer] Other 07-15-2022 15:00-0500 Diastolic blood pressure 52 mm[Hg] Akira Ferrer MD Work Phone: [employer] Comment on above: Kenya Irizarry CRNA notified. ok to discharge p t and patient notified they need to take BP medication when they get home. 07-15-2022 15:00-0500 Heart rate 62 /min Akira Ferrer MD Work Phone: [employer] 07-15-2022 15:00-0500 Respiratory rate 16 /min Akira Ferrer MD Work Phone: [employer] 07-15-2022 15:00-0500 SaO2% (BldA) [Mass fraction] 95 % Akira Ferrer MD Work Phone: [employer] 07-15-2022 15:00-0500 Systolic blood pressure 162 mm[Hg] Akira Ferrer MD Work Phone: [employer] Comment on above: Kenya Irizarry CHOIR LEADER notified. ok to discharge p t and patient notified they need to take BP medication when they get home. 07-15-2022 14:15-0500 Body temperature 96.69 [degF] Akira Ferrer MD Work Phone: [facility] 07-15-2022 11:08-0500 Body height 182.9 cm Akira Ferrer MD Work Phone: [facility] [employer] 07-15-2022 11:08-0500 Body mass index (BMI) [Ratio] 33.36 kg/m2 Akira Ferrer MD Work Phone: [facility] [employer] 07-15-2022 11:08-0500 Body weight 111.58 kg Akira Ferrer MD Work Phone: [facility] [employer] 07-02-2022 12:30-0500 Body height 182.88 cm Jorge Ball Other [employer] Other 07-02-2022 12:30-0500 Body mass index (BMI) [Ratio] 33.5 kg/m2 Jorge Ball Other [employer] 07-02-2022 12:30-0500 Body weight 112.04 kg Jorge Ball Other [employer] Other 07-02-2022 12:30-0500 Diastolic blood pressure 54 mm[Hg] Jorge Ball Other [employer] Other 07-02-2022 12:30-0500 Respiratory rate 16 /min Jorge Ball Other [employer] Other 07-02-2022 12:30-0500 Systolic blood pressure 102 mm[Hg] Jorge Ball Other [employer] Other 06-01-2021 07:40-0500 Body temperature 96.8 [degF] Lamont Vasquez MD Work Phone: [employer] 06-01-2021 07:40-0500 Diastolic blood pressure 72 mm[Hg] Lamont Vasquez MD Work Phone: [employer] 06-01-2021 07:40-0500 Heart rate 66 /min Lamont Vasquez MD Work Phone: [employer] 06-01-2021 07:40-0500 Respiratory rate 18 /min Lamont Vasquez MD Work Phone: [employer] 06-01-2021 07:40-0500 SaO2% (BldA) [Mass fraction] 95 % Lamotn Vasquez MD Work Phone: [employer] 06-01-2021 07:40-0500 Systolic blood pressure 156 mm[Hg] Lamont Vasquez MD Work Phone: [employer] 06-01-2021 03:30-0500 Body mass index (BMI) [Ratio] 32.79 kg/m2 Lamont Vasquez MD Work Phone: [employer] 06-01-2021 03:30-0500 Body weight 109.68 kg Lamont Vasquez MD Work Phone: [employer] 05-28-2021 12:51-0500 Body height 182.9 cm Lamont Vasquez MD Work Phone: [employer] Encounters Encounter Date Encounter Type Care Provider Facility Start: 12-27-2024 End: 12-27-2024 ambulatory JORGE PRITCHETT [facility] Start: 12-27-2024 End: 12-27-2024 Subsequent hospital visit by physician Quincy Penn DPM Work Phone: [facility] Comment on above: Critical limb ischem ia of both lower extremities (HCC) (Primary Dx); Eschar of toe; Gangrene of toe of both feet (HCC) Start: 12-23-2024 End: 12-23-2024 ambulatory Jorge Pritchett DO Work Phone: [facility] Work Phone: Start: 12-23-2024 End: 12-23-2024 Patient encounter procedure Jorge Pritchett DO [facility] Work Phone: Start: 12-23-2024 End: 12-23-2024 Patient encounter status Jorge Pritchett DO [facility] Start: 12-06-2024 End: 12-06-2024 ambulatory HALLIECHRISTIAN CORRAL [facility] Start: 12-06-2024 End: 12-06-2024 Subsequent hospital visit by physician Quincy Penn DPM Work Phone: [facility] Comment on above: Critical limb ischem ia of both lower extremities (HCC) (Primary Dx); Eschar of toe; Gangrene of toe of both feet (HCC) Start: 11-22-2024 End: 11-22-2024 [facility] L[facility] DUARTE [facility] Start: 11-22-2024 End: 11-22-2024 Subsequent hospital visit by physician Quincy Pnen DPM Work Phone: [facility] Comment on above: Orthopedic aftercare (Primary Dx); History of amputation of right great toe Start: 11-16-2024 End: 11-16-2024 [facility] ALMA KAN [facility] Start: 11-15-2024 Non-patient / Non-visit Jeremias Lucero DO [facility] [employer] Work Phone: Start: 11-15-2024 End: 11-15-2024 ambulatory [facility] Start: 11-15-2024 End: 11-15-2024 Subsequent hospital visit by physician Quincy PECKM Work Phone: [facility] Comment on above: Orthopedic aftercare (Primary Dx); History of amputation of right great toe Start: 11-11-2024 End: 11-11-2024 [facility] Start: 11-11-2024 End: 11-11-2024 Subsequent hospital visit by physician Quincy Penn DPM Work Phone: [facility] Comment on above: Acute osteomyelitis of right foot (HCC); Open wound of toe(s) Start: 11-09-2024 End: 11-09-2024 [employer]amboo [employer] Alice Cochran DPM Work Phone: [facility] Start: 11-09-2024 End: 11-09-2024 [employer]amboo [employer]sheet Alice Cochran DPM Work Phone: [facility] Start: 11-09-2024 End: 11-09-2024 Patient encounter procedure Alice Cochran DPM Work Phone: [facility] Comment on above: Dermatophytosis of n ail (Primary Dx); Dystrophic nail; Type II diabetes mellitus with peripheral circulatory disorder (HCC); Diabetic polyneuropathy associated with type 2 diabetes mellitus ([facility]) Start: 11-09-2024 End: 11-09-2024 ambulatory ALICE COCHRAN Not Available Start: 11-01-2024 End: 11-01-2024 [facility] Start: 11-01-2024 End: 11-01-2024 Subsequent hospital visit by physician Jorge Pritchett DO Work Phone: [facility] Start: 11-01-2024 End: 11-01-2024 [facility] Start: 11-01-2024 End: 11-01-2024 Subsequent hospital visit by physician Quincy Penn DPBettina Work Phone: [facility] Comment on above: Osteomyelitis of gre at toe of right foot (HCC) (Primary Dx); Critical limb ischemia of both lower extremities ([facility]); Infection of toe; Chronic ulcer of great toe of right foot with fat layer exposed ([facility]) Start: 10-20-2024 End: 10-22-2024 [facility] Start: 10-20-2024 End: 10-22-2024 Subsequent hospital visit by physician Quincy Penn DPM Work Phone: [facility] Comment on above: Acute on chronic cintia stolic (congestive) heart failure (HCC); ASHD (arteriosclerotic heart disease); S/P angioplasty with stent; Essential hypertension; Mixed hyperlipidemia; PAD (peripheral artery disease); CHRIS (obstructive sleep apnea); Stage 3a chronic kidney disease (HCC) Chronic ulcer of gre at toe of right foot with fat layer exposed ([facility]); Diabetic ulcer of right great toe (HCC) Start: 10-12-2024 ambulatory ALMA KAN [facility] Start: 10-04-2024 End: 10-04-2024 [facility] Start: 10-04-2024 End: 10-04-2024 Subsequent hospital visit by physician Quincy Penn DPM Work Phone: [facility] Comment on above: Chronic ulcer of gre at toe of right foot with fat layer exposed (HCC) (Primary Dx); Diabetic ulcer of right great toe (HCC) Screening PSA (prost ate specific antigen) Start: 09-21-2024 End: 09-21-2024 ambulatory [facility] Work Phone: Start: 09-21-2024 End: 09-21-2024 Patient encounter procedure [facility] [facility] Work Phone: Start: 09-20-2024 End: 09-20-2024 ambulatory [facility] Start: 09-20-2024 End: 09-20-2024 Subsequent hospital visit by physician Jorge Pritchett DO Work Phone: [facility] Start: 09-06-2024 End: 09-08-2024 [facility] Start: 09-06-2024 End: 09-08-2024 Subsequent hospital visit by physician Quincy Penn DPM Work Phone: [facility] Comment on above: Chronic ulcer of gre at toe of right foot with fat layer exposed (HCC) (Primary Dx); Critical limb ischemia of both lower extremities Chronic ulcer of gre at toe of right foot with fat layer exposed (HCC) Start: 08-23-2024 End: 08-23-2024 ambulatory [facility] Start: 08-23-2024 End: 08-23-2024 Subsequent hospital visit by physician Jorge Pritchett DO Work Phone: [facility] Start: 08-16-2024 End: 08-18-2024 ambulatory QUINCY PENN [facility] Start: 08-16-2024 End: 08-18-2024 Subsequent hospital visit by physician Yamileth Bach Dr Room 4 [facility] Comment on above: Eschar of toe; Chronic ulcer of great toe of right foot with fat layer exposed (HCC) Start: 08-16-2024 End: 08-16-2024 ambulatory [facility] Start: 08-16-2024 End: 08-16-2024 Subsequent hospital visit by physician Quincy Penn DPM Work Phone: [facility] Comment on above: Chronic ulcer of gre at toe of right foot with fat layer exposed (HCC) (Primary Dx); Eschar of toe; Critical limb ischemia of both lower extremities (HCC); Gangrene of toe of both feet (HCC) Start: 08-08-2024 End: 08-08-2024 ambulatory ALICE COCHRAN Not Available Start: 08-05-2024 End: 08-05-2024 Patient encounter procedure [facility] Work Phone: Start: 08-02-2024 Non-patient / Non-visit [facility] Work Phone: Start: 08-01-2024 Non-[facility] Work Phone: Start: 07-30-2024 Non-patient / [facility] Work Phone: Start: 07-23-2024 End: 07-29-2024 Evaluation and management of inpatient Werner Sunshine MD Facility:[facility] Start: 07-22-2024 End: 07-23-2024 Emergency department patient visit Maribel Llanos DO Work Phone: [facility] Emergency Department Comment on above: Acute renal failure superimposed on chronic kidney disease, unspecified acute renal failure type, unspecified CKD stage (Primary Dx); Dehydration Start: 07-13-2024 End: 07-13-2024 ambulatory NILES GLASS [facility] Start: 07-13-2024 End: 07-13-2024 Subsequent hospital visit by physician Jorge Pritchett DO Work Phone: [facility] Start: 07-13-2024 End: 07-13-2024 ambulatory ALMA KAN [facility] Start: 07-12-2024 End: 07-12-2024 ambulatory [facility] Work Phone: Start: 07-12-2024 End: 07-12-2024 Patient encounter procedure [facility] Work Phone: Start: 07-12-2024 End: 07-12-2024 ambulatory JORGE PRITCHETT [facility] Start: 07-12-2024 End: 07-12-2024 Subsequent hospital visit by physician Quincy Penn DPM Work Phone: [facility] Comment on above: Gangrene of toe of b oth feet (HCC) (Primary Dx); Eschar of toe; Critical limb ischemia of both lower extremities ([facility]) Start: 06-27-2024 End: 06-27-2024 ambulatory HARRISON U LEISA [facility] Start: 06-27-2024 End: 06-27-2024 Subsequent hospital visit by physician Jorge Pritchett DO Work Phone: [facility] Start: 05-26-2024 End: 05-26-2024 Patient encounter procedure Alice Cochran DPM Work Phone: [facility] Comment on above: Dermatophytosis of n ail (Primary Dx); Dystrophic nail; Type II diabetes mellitus with peripheral circulatory disorder ([facility]); Diabetic polyneuropathy associated with type 2 diabetes mellitus ([facility]) Start: 05-26-2024 End: 05-26-2024 ambulatory ALICE COCHRAN Not Available Start: 05-26-2024 End: 05-26-2024 Bamboo flowsheet Alice Cochran DPM Work Phone: [facility] Start: 05-26-2024 End: 05-26-2024 Bamboo flowsheet Alice Cochran DPM Work Phone: [facility] Start: 05-13-2024 End: 05-13-2024 [facility] Start: 05-13-2024 End: 05-13-2024 Subsequent hospital visit by physician Jorge Pritchett DO Work Phone: [facility] Start: 05-12-2024 Non-patient / Non-visit [facility] Work Phone: Start: 05-12-2024 End: 05-12-2024 Patient encounter procedure [facility] Work Phone: Start: 05-11-2024 End: 05-11-2024 [facility] Start: 05-11-2024 End: 05-11-2024 Subsequent hospital visit by physician Jorge Pritchett DO Work Phone: [facility] Start: 05-06-2024 End: 05-06-2024 [facility] Start: 05-06-2024 End: 05-06-2024 Subsequent hospital visit by physician Jorge Pritchett DO Work Phone: [facility] Comment on above: Acute on chronic cintia stolic (congestive) heart failure ([facility]); ASHD (arteriosclerotic heart disease); S/P angioplasty with stent; Essential hypertension; Mixed hyperlipidemia; PAD (peripheral artery disease) ([facility]); CHRIS (obstructive sleep apnea); Stage 3a chronic kidney disease ([facility]); Obesity, unspecified class, unspecified obesity type, unspecified whether serious comorbidity present; Acute on chronic combined systolic and diastolic congestive heart failure (HCC) Start: 04-25-2024 End: 04-27-2024 [facility] FLOYD VEE [facility] Start: 04-25-2024 End: 04-27-2024 Subsequent hospital visit by physician Floyd Vee MD Work Phone: [facility] Comment on above: Critical limb ischem ia of both lower extremities (HCC) Start: 04-13-2024 End: 04-13-2024 [facility] Start: 04-01-2024 End: 04-01-2024 ambulatory HARRISON BELTRAN [facility] Start: 04-01-2024 End: 04-01-2024 Subsequent hospital visit by physician Jorge Pritchett DO Work Phone: [facility] Start: 03-23-2024 End: 03-23-2024 Bamboo flowsheet Alice Cochran DPM Work Phone: [facility] Start: 03-23-2024 End: 03-23-2024 Bamboo flowsheet Alice Cochran DPM Work Phone: [facility] Start: 03-23-2024 End: 03-23-2024 Patient encounter procedure Alice Cochran DPM Work Phone: [facility] Comment on above: Dermatophytosis of n ail (Primary Dx); Dystrophic nail; Type II diabetes mellitus with peripheral circulatory disorder ([facility]); Diabetic polyneuropathy associated with type 2 diabetes mellitus ([facility]) Start: 03-23-2024 End: 03-23-2024 ambulatory ALICE COCHRAN Not Available Start: 03-15-2024 End: 03-15-2024 ambulatory ALMA Hinkle [facility] Start: 03-15-2024 End: 03-15-2024 Subsequent hospital visit by physician Jorge Pritchett DO Work Phone: [facility] Comment on above: Acute on chronic cintia stolic (congestive) heart failure ([facility]); ASHD (arteriosclerotic heart disease); Essential hypertension; Mixed hyperlipidemia; PAD (peripheral artery disease) ([facility]); CHRIS (obstructive sleep apnea); Obesity, unspecified class, unspecified obesity type, unspecified whether serious comorbidity present Start: 03-08-2024 End: 03-08-2024 ambulatory FLOYD VEE [facility] Start: 02-28-2024 End: 02-28-2024 Emergency department patient visit Gabby Orlando MD Work Phone: [facility] ED Comment on above: Bilateral lower leg cellulitis (Primary Dx); Pain in left lower leg Start: 02-24-2024 End: 02-27-2024 Evaluation and management of inpatient Fred Villegas MD Work Phone: [facility] Comment on above: Bilateral lower leg cellulitis (Primary Dx); Edema of both lower extremities due to peripheral venous insufficiency; Chronic diastolic congestive heart failure (HCC) Start: 02-24-2024 End: 02-24-2024 ambulatory [facility] Start: 02-17-2024 End: 02-17-2024 Bamboo flowsheet Alice Cochran DPM Work Phone: [facility] Start: 02-17-2024 End: 02-17-2024 Bamboo flowsheet Alice Cochran DPM Work Phone: [facility] Start: 02-17-2024 End: 02-17-2024 Office outpatient visit 15 minutes Alice Cochran DPM Work Phone: [facility] Comment on above: Cellulitis of left f oot (Primary Dx); Type II diabetes mellitus with peripheral circulatory disorder (CMS/HCC); Diabetic polyneuropathy associated with type 2 diabetes mellitus (CMS/HCC); Skin ulcer of midfoot region, left, limited to breakdown of skin ([facility]/HCC) Start: 02-17-2024 End: 02-17-2024 ambulatory ALICE COCHRAN Not Available Start: 02-09-2024 End: 02-09-2024 ambulatory [facility] Start: 02-09-2024 End: 02-09-2024 Subsequent hospital visit by physician Jorge Pritchett DO Work Phone: [facility] Start: 02-09-2024 End: 02-09-2024 ambulatory [facility] Start: 02-05-2024 End: 02-05-2024 Bamboo flowsheet Alice Cochran DPM Work Phone: [facility] Start: 02-05-2024 End: 02-05-2024 Bamboo flowsheet Alice Cochran DPM Work Phone: [facility] Start: 02-05-2024 End: 02-05-2024 ambulatory ALICE COCHRAN Not Available Start: 02-05-2024 End: 02-05-2024 Office outpatient visit 25 minutes Alice Cochran DPM Work Phone: [facility] Comment on above: Cellulitis of left f oot (Primary Dx); Type II diabetes mellitus with peripheral circulatory disorder (CMS/HCC); Diabetic polyneuropathy associated with type 2 diabetes mellitus (CMS/HCC); Skin ulcer of midfoot region, left, limited to breakdown of skin (CMS/HCC) Start: 02-03-2024 End: 02-03-2024 ambulatory [facility] Work Phone: Start: 02-03-2024 End: 02-03-2024 Patient encounter procedure [facility] Work Phone: Start: 01-26-2024 ambulatory [facility] Start: 01-04-2024 End: 01-04-2024 ambulatory ALICE COCHRAN Not Available Start: 12-21-2023 End: 12-21-2023 ambulatory TIGIST CORREA [facility] Start: 12-21-2023 End: 12-21-2023 Subsequent hospital visit by physician Tigist Correa MD Work Phone: [facility] Cardiac Cath/IR Lab Comment on above: CHRIS (obstructive sle ep apnea) (Primary Dx); Abnormal stress test; Chest pain; CAD (coronary artery disease); Constipation, unspecified constipation type; 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, unspecified vessel or lesion type ([facility]) Start: 12-02-2023 End: 12-02-2023 Subsequent hospital visit by physician Yumiko Montes PTA [facility] Physical Therapy Comment on above: Arrived Start: 11-11-2023 End: 11-11-2023 Subsequent hospital visit by physician [facility]ritchett DO [facility] Comment on above: Chronic diastolic he art failure (HCC) Start: 11-10-2023 End: 11-10-2023 Encounter for general adult medical examination without abnormal findings [facility] Start: 11-10-2023 End: 11-10-2023 [facility] encounter [facility] Work Phone: Start: 11-09-2023 End: 11-09-2023 Subsequent hospital visit by physician Yumiko Montes PTA [facility] Physical Therapy Comment on above: Arrived Start: 11-06-2023 End: 11-06-2023 Subsequent hospital visit by physician Yumiko Montes PTA [facility] Physical Therapy Comment on above: Arrived Start: 11-03-2023 End: 11-03-2023 Subsequent hospital visit by physician Akira Ferrer MD Work Phone: [facility] Start: 10-22-2023 End: 10-22-2023 Subsequent hospital visit by physician Yumiko Montes PTA [facility] Physical Therapy Comment on above: Arrived Start: 08-12-2023 End: 08-12-2023 ambulatory [facility] Work Phone: Start: 08-12-2023 End: 08-12-2023 Patient encounter procedure [facility] Work Phone: Start: 08-05-2023 End: 08-05-2023 Subsequent hospital visit by physician Jorge Pritchett DO Work Phone: [facility] Comment on above: Screening PSA (prost ate specific antigen); Incomplete emptying of bladder Start: 07-27-2023 Non-patient / [facility] Work Phone: Start: 07-27-2023 Non-patient / [facility] Work Phone: Start: 06-30-2023 End: 06-30-2023 Subsequent hospital visit by physician Jorge Pritchett DO Work Phone: [facility] Start: 06-02-2023 End: 06-02-2023 ambulatory Jorge Pritchett Other [employer] Other Start: 06-02-2023 Telephone encounter Jorge Ball [facility] Start: 05-13-2023 End: 05-13-2023 ambulatory Jorge Ball Other [employer] Other Start: 05-13-2023 Office outpatient vi sit 25 minutes Jorge Ball [facility] Start: 05-07-2023 End: 05-07-2023 ambulatory Jorge Ball Other [employer] Other Start: 05-07-2023 Telephone encounter Jorge Ball [facility] Start: 04-26-2023 End: 04-26-2023 ambulatory Jorge Ball Other [employer] Other Start: 04-26-2023 Telephone encounter Jorge Ball [facility] Start: 04-19-2023 End: 04-19-2023 ambulatory Jorge Ball Other [employer] Other Start: 04-19-2023 Telephone encounter Jorge Ball [facility] Start: 04-06-2023 End: 04-06-2023 ambulatory Jorge Ball Other [employer] Other Start: 04-06-2023 Telephone encounter Jorge Ball [facility] Start: 03-30-2023 End: 03-30-2023 ambulatory Jorge Ball Other [employer] Other Start: 03-30-2023 Telephone encounter Jorge Ball [facility] Start: 02-26-2023 End: 02-26-2023 ambulatory Jorge Ball Other [employer] Other Start: 02-26-2023 Telephone encounter Jorge Ball [facility] Start: 02-11-2023 End: 02-11-2023 ambulatory Jorge Ball Other [employer] Other Start: 02-11-2023 Office outpatient vi sit 25 minutes Jorge Ball [facility] Start: 01-15-2023 End: 01-17-2023 Subsequent hospital visit by physician Harrison Beltran DO Work Phone: [facility] Comment on above: Arrived Start: 01-06-2023 End: 01-06-2023 ambulatory Jorge Pritchett Other [employer] Other Start: 01-06-2023 Telephone encounter Jorge [facility]rit[facility]tt [facility] Start: 12-29-2022 End: 12-29-2022 ambulatory Jorge Pritchett Other [employer] Other Start: 12-29-2022 Telephone encounter Jorge Pritchett [facility] Start: 12-22-2022 End: 12-24-2022 Subsequent hospital visit by physician Yamileth Bach Dr Room 4 [facility] Radiology Comment on above: Dyspnea on exertion Start: 12-18-2022 End: 12-18-2022 Subsequent hospital visit by physician Rashel Cárdenas PT [facility] Physical Therapy Comment on above: Arrived Start: 12-11-2022 End: 12-11-2022 Subsequent hospital visit by physician Rashel Cárdenas PT [facility] Physical Therapy Comment on above: Arrived Start: 12-03-2022 End: 12-03-2022 Subsequent hospital visit by physician Shirin Bajwa PTA [facility] Physical Therapy Comment on above: Arrived Start: 12-01-2022 End: 12-01-2022 Subsequent hospital visit by physician Rashel Cárdenas PT [facility] Physical Therapy Comment on above: Arrived Start: 11-14-2022 End: 11-14-2022 Subsequent hospital visit by physician Sharonda Gonzalez PTA [facility] Physical Therapy Comment on above: Arrived Start: 11-11-2022 End: 11-11-2022 ambulatory Jorge Pritchett Other [employer] Other Start: 11-11-2022 Office outpatient vi sit 25 minutes Jorge Pritchett [facility] Start: 11-07-2022 End: 11-07-2022 Subsequent hospital visit by physician Rashel Cárdenas PT [facility] Physical Therapy Comment on above: Arrived Start: 11-06-2022 End: 11-06-2022 ambulatory Jorge Pritchett Facility:[facility] Start: 11-06-2022 End: 11-06-2022 ambulatory BUS PERSON DISHWASHER-C Pia Douglass Work Phone: [facility] Work Phone: Start: 11-06-2022 End: 11-06-2022 Patient encounter procedure BUS PERSON DISHWASHER-C Pia Douglass Work Phone: [facility] Work Phone: Start: 10-28-2022 End: 10-28-2022 ambulatory Jorge Pritchett Other [employer] Other Start: 10-28-2022 Telephone encounter Jorge Pritchett [facility] Start: 10-27-2022 End: 10-27-2022 Subsequent hospital visit by physician Shirin Bajwa PTA [facility] Physical Therapy Comment on above: Arrived Start: 10-20-2022 End: 10-20-[address] JORGE PRITCHETT Facility:[facility] Start: 10-13-2022 End: 10-13-[address] ALICE CIFUENTES Facility:[facility] Start: 10-03-2022 End: 10-03-2022 Subsequent hospital visit by physician Shirin Bajwa PTA [facility] Physical Therapy Comment on above: Arrived Start: 09-29-2022 End: 09-29-2022 Subsequent hospital visit by physician Shirin Bajwa PTA [facility] Physical Therapy Comment on above: Arrived Start: 09-15-2022 End: 09-15-2022 Subsequent hospital visit by physician Shirin Bajwa PTA [facility] Physical Therapy Comment on above: Arrived Start: 09-09-2022 End: 09-09-2022 ambulatory Jorge Pritchett Other [employer] Other Start: 09-09-2022 Telephone encounter Jorge ACUÑA [facility] Start: 09-05-2022 End: 09-05-2022 Subsequent hospital visit by physician Chris Sauceda PT [facility] Physical Therapy Comment on above: Arrived Start: 09-01-2022 End: 09-01-2022 Subsequent hospital visit by physician Shirin Bajwa PTA [facility] Physical Therapy Comment on above: Arrived Start: 08-29-2022 End: 08-29-2022 Subsequent hospital visit by physician Shirin Bajwa DANCE MASTER [facility] Physical Therapy Comment on above: Arrived Start: 08-25-2022 End: 08-25-2022 Subsequent hospital visit by physician Chris Sauceda PT [facility] Physical Therapy Comment on above: Arrived Start: 08-20-2022 End: 08-20-2022 Subsequent hospital visit by physician Kelly Amaya PT [facility] Physical Therapy Comment on above: Arrived Start: 08-11-2022 End: 08-11-2022 ambulatory Jorge Pritchett Other [employer] Other Start: 08-11-2022 Office outpatient vi sit 25 minutes Jorge Pritchett [facility] Start: 08-05-2022 End: 08-05-2022 Subsequent hospital visit by physician Jorge Pritchett DO Work Phone: [facility] Laboratory Comment on above: BPH with obstruction /lower urinary tract symptoms; Post-operative state Start: 07-15-2022 End: 07-15-2022 ambulatory Jorge Pritchett Other [employer] Other Start: 07-15-2022 Telephone encounter Jorge Pritchett [facility] Start: 07-15-2022 End: 07-15-2022 Subsequent hospital visit by physician Akira Ferrer MD Work Phone: [facility] Start: 07-14-2022 End: 07-14-2022 Subsequent hospital visit by physician [facility] Cardiology Stress Room [facility] Stress Lab Comment on above: Arrived Start: 07-11-2022 End: 07-11-2022 Patient encounter status [facility] Room [facility] Stress Lab Start: 07-11-2022 End: 07-11-2022 Subsequent hospital visit by physician [facility] Cardiology Stress Room [facility] Stress Lab Comment on above: Preop cardiovascular exam; ASHD (arteriosclerotic heart disease); S/P angioplasty with stent; Lightheaded; Chronic systolic congestive heart failure (HCC); Mixed hyperlipidemia; CHRIS on CPAP; Stage 3 chronic kidney disease, unspecified whether stage 3a or 3b CKD (HCC); Adenoma of left adrenal gland; History of stroke Start: 07-09-[address] JORGE PRITCHETT Facili ty:[facility] Start: 07-02-2022 End: 07-02-2022 ambulatory Jorge Pritchett Other [employer] Other Start: 07-02-2022 Encounter for other preprocedural examination Jorge Pritchett [facility] Start: 07-02-2022 Office outpatient vi sit 25 minutes Jorge Pritchett [facility] Start: 06-25-2022 End: 06-25-2022 Subsequent hospital visit by physician Jorge Pritchett DO Work Phone: [facility] Laboratory Comment on above: BPH with obstruction /lower urinary tract symptoms; Incomplete emptying of bladder; Frequency of urination; Urgency of micturition Start: 05-24-2022 End: 05-24-2022 Subsequent hospital visit by physician Jorge Bernal Phone: [facility] Laboratory Start: 05-23-2022 End: 05-23-2022 Subsequent hospital visit by physician Huang Urbina PT [facility] Physical Therapy Comment on above: Arrived Start: 05-23-2022 End: 05-23-2022 ambulatory Jorge Pritchett Other [employer] Other Start: 05-23-2022 Telephone encounter Jorge Pritchett [facility] Start: 05-22-2022 End: 05-22-2022 Subsequent hospital visit by physician Huang Urbina PT [facility] Physical Therapy Comment on above: Arrived Start: 05-20-2022 End: 05-22-2022 Subsequent hospital visit by physician [facility] Ultrasound Room 2 [facility] Ultrasound Comment on above: Incomplete bladder e mptying Start: 05-14-2022 End: 05-14-2022 ambulatory PETTY ANGULO . 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); Intermittent claudication (HCC); Primary hypertension; Mixed hyperlipidemia; CHRIS (obstructive sleep apnea); Stage 3 chronic kidney disease, unspecified whether stage 3a or 3b CKD (HCC); Primary hyperparathyroidism (HCC); Adenoma of left adrenal gland Start: 05-06-2022 End: 05-06-2022 Subsequent hospital visit by physician Huang Urbina PT [facility] Physical Therapy Comment on above: Arrived Start: 05-02-2022 End: 05-02-2022 Subsequent hospital visit by physician Doc Agrawal DANCE MASTER [facility] Physical Therapy Comment on above: Arrived Start: 04-02-2022 End: 04-02-2022 Subsequent hospital visit by physician Doc Agrawal DANCE MASTER [facility] Physical Therapy Comment on above: Arrived Start: 03-31-2022 End: 03-31-2022 Subsequent hospital visit by physician Chris Sauceda PT [facility] Physical Therapy Comment on above: Arrived Start: 03-26-2022 End: 03-26-2022 Subsequent hospital visit by physician Shirin Bajwa DANCE MASTER [facility] Physical Therapy Comment on above: Arrived Start: 03-24-2022 End: 03-24-2022 Subsequent hospital visit by physician Huang Urbina PT [facility] Physical Therapy Comment on above: Arrived Start: 03-20-2022 End: 03-20-2022 Subsequent hospital visit by physician Jorge Pritchett DO Work Phone: [facility] Laboratory Comment on above: Incomplete emptying of bladder Start: 03-18-2022 End: 03-18-2022 Subsequent hospital visit by physician Chris Sauceda PT [facility] Physical Therapy Comment on above: Arrived Start: 03-14-2022 End: 03-14-2022 Subsequent hospital visit by physician Yumiko Montes DANCE MASTER [facility] Physical Therapy Comment on above: Arrived Start: 03-06-2022 End: 03-06-2022 Subsequent hospital visit by physician Rashel Cárdenas PT [facility] Physical Therapy Comment on above: Arrived Start: 03-04-2022 End: 03-04-2022 Subsequent hospital visit by physician Yumiko Montes DANCE MASTER [facility] Physical Therapy Comment on above: Arrived Start: 02-28-2022 End: 02-28-2022 Subsequent hospital visit by physician Huang Urbina PT [facility] Physical Therapy Comment on above: Arrived Start: 02-18-2022 End: 02-18-2022 Subsequent hospital visit by physician Colton Lim [facility] Physical Therapy Comment on above: Arrived Start: 02-14-2022 End: 02-14-2022 Subsequent hospital visit by physician Huang Urbina PT [facility] Physical Therapy Comment on above: Arrived Start: 02-07-2022 End: 02-07-2022 Subsequent hospital visit by physician Yumiko Montes DANCE MASTER [facility] Physical Therapy Comment on above: Arrived Start: 01-31-2022 End: 01-31-2022 Subsequent hospital visit by physician Doc Agrawal PTA [facility] Physical Therapy Comment on above: Arrived Start: 01-28-2022 End: 01-28-2022 Subsequent hospital visit by physician Rashel Cárdenas PT [facility] Physical Therapy Comment on above: Arrived Start: 01-24-2022 End: 01-24-2022 Subsequent hospital visit by physician Rashel Cárdenas PT [facility] Physical Therapy Comment on above: Arrived Start: 01-21-2022 End: 01-21-2022 Subsequent hospital visit by physician Doc Agrawal PTA [facility] Physical Therapy Comment on above: Arrived Start: 01-16-2022 End: 01-16-2022 Subsequent hospital visit by physician Rashel Cárdenas PT [facility] Physical Therapy Comment on above: Arrived Start: 01-09-2022 End: 01-09-2022 ambulatory Pia Douglass Facility:[facility] Start: 01-09-2022 End: 01-09-2022 Patient encounter procedure BUS PERSON DISHWASHER-C Pia Douglass Work Phone: [facility] Start: 01-08-2022 End: 01-08-2022 Subsequent hospital visit by physician Doc Agrawal PTA [facility] Physical Therapy Comment on above: Arrived Start: 01-06-2022 End: 01-06-2022 Subsequent hospital visit by physician Doc Agrawal PTA [facility] Physical Therapy Comment on above: Arrived Start: 01-03-2022 End: 01-03-2022 Subsequent hospital visit by physician Doc Agrawal PTA [facility] Physical Therapy Comment on above: Arrived Start: 01-01-2022 End: 01-01-2022 Subsequent hospital visit by physician Doc Agrawal PTA [facility] Physical Therapy Comment on above: Arrived Start: 12-30-2021 End: 12-30-2021 Subsequent hospital visit by physician Doc Agrawal PTA [facility] Physical Therapy Comment on above: Arrived Start: 12-27-2021 End: 12-27-2021 Subsequent hospital visit by physician Rashel Cárdenas PT [facility] Physical Therapy Comment on above: Arrived Start: 12-26-2021 End: 12-26-2021 Subsequent hospital visit by physician Doc Agrawal PTA [facility] Physical Therapy Comment on above: Arrived Start: 12-24-2021 End: 12-24-2021 Subsequent hospital visit by physician Colton Lim [facility] Physical Therapy Comment on above: Arrived Start: 12-18-2021 End: 12-18-2021 Subsequent hospital visit by physician Doc Agrawal PTA [facility] Physical Therapy Comment on above: Arrived Start: 12-17-2021 End: 12-17-2021 Subsequent hospital visit by physician Rashel Cárdenas PT [facility] Physical Therapy Comment on above: Arrived Start: 12-09-2021 End: 12-09-2021 Subsequent hospital visit by physician [facility] Cardiop[facility] Rehab Rm 4 [facility] Cardiac Rehab Comment on above: Arrived Start: 12-05-2021 End: 12-05-2021 Subsequent hospital visit by physician [facility] Card[facility] Rehab Rm 4 [facility] Cardiac Rehab Comment on above: Arrived Start: 12-02-2021 End: 12-02-2021 Subsequent hospital visit by physician [facility] Cardiop[facility] Rehab Rm 4 [facility] Cardiac Rehab Comment on above: Arrived Start: 11-21-2021 End: 11-21-2021 Subsequent hospital visit by physician [facility] Comment on above: Arrived Start: 11-18-2021 End: 11-18-2021 Subsequent hospital visit by physician Josefa Ruvalcaba RD, DEBORAH Work Phone: [facility] Diet and Nutrition Comment on above: Arrived Start: 10-31-2021 End: 10-31-2021 Subsequent hospital visit by physician [facility] Card[facility] Rehab Rm 2 [facility] Cardiac Rehab Comment on above: Arrived Start: 10-28-2021 End: 10-28-2021 Subsequent hospital visit by physician [facility] Card[facility] Rehab Rm 2 [facility] Cardiac Rehab Comment on above: Arrived Start: 10-23-2021 End: 10-23-2021 Subsequent hospital visit by physician [facility] Card[facility] Rehab Rm 2 [facility] Cardiac Rehab Comment on above: Arrived Start: 10-17-2021 End: 10-17-2021 Subsequent hospital visit by physician [facility] Cardiop[facility] Rehab Rm 2 [facility] Cardiac Rehab Comment on above: Arrived Start: 10-14-2021 End: 10-14-2021 Subsequent hospital visit by physician [facility] Card[facility] Rehab Rm 2 [facility] Cardiac Rehab Comment on above: Arrived Start: 10-03-2021 End: 10-03-2021 Subsequent hospital visit by physician [facility] Cardiop[facility] Rehab Rm 2 [facility] Cardiac Rehab Comment on above: Arrived Start: 09-30-2021 End: 09-30-2021 Subsequent hospital visit by physician [facility] Cardiop[facility] Rehab Rm 2 [facility] Cardiac Rehab Comment on above: Arrived Start: 09-27-2021 End: 09-27-2021 Subsequent hospital visit by physician Yamileth Cr Education Room [facility] Cardiac Rehab Comment on above: Arrived Start: 09-11-2021 End: 09-13-2021 Subsequent hospital visit by physician [facility] Cat Scan Room [facility] CT Scan Comment on above: Uricaciduria Start: 06-12-2021 End: 06-20-2021 Evaluation and management of inpatient [facility] Start: 05-27-2021 End: 06-01-2021 Evaluation and management of inpatient Lamont Vasquez MD Work Phone: [facility] Start: 04-24-2021 End: 04-24-2021 Subsequent hospital visit by physician Reyes Sleep Rm 1 [facility] Sleep Center Comment on above: Arrived Start: 07-25-2020 End: 07-25-2020 Subsequent hospital visit by physician Pia Douglass [facility] Laboratory Comment on above: BPH with obstruction /lower urinary tract symptoms; Incomplete emptying of bladder Procedures Date Procedure Procedure Detail Performing Clinician Start: 12-06-2024 Renal function panel Steen rubi Corral PYTHON ENGINEER - HYDRAULIC PRESS OPERATOR Work Phone: Start: 12-06-2024 Urinalysis microscopic only Hallie Corral PYTHON ENGINEER - HYDRAULIC PRESS OPERATOR Work Phone: Start: 12-06-2024 Urnls dip stick/tabl et rgnt auto w/o microscopy Hallie Corral PYTHON ENGINEER - HYDRAULIC PRESS OPERATOR Work Phone: Start: 11-11-2024 GLUCOSE, WHOLE BLOOD Cherise hn W Bremyer DPM Work Phone: Start: 11-11-2024 GLUCOSE, WHOLE BLOOD Cherise hn W Bremyer DPM Work Phone: Start: 11-01-2024 Renal function panel Br vanviola Duarte PYTHON ENGINEER - HYDRAULIC PRESS OPERATOR Work Phone: Start: 11-01-2024 Urinalysis microscopic only Lev Duarte PYTHON ENGINEER - HYDRAULIC PRESS OPERATOR Work Phone: Start: 11-01-2024 Urnls dip stick/tabl et rgnt auto w/o microscopy Lev Duarte PYTHON ENGINEER - HYDRAULIC PRESS OPERATOR Work Phone: Start: 10-20-2024 Basic metabolic pane l calcium total Lev Duarte PYTHON ENGINEER - HYDRAULIC PRESS OPERATOR Work Phone: Start: 10-04-2024 Hemoglobin glycosylated a1c [...] et rgnt auto w/o microscopy Maribel Ragsdale Llnaos DO Work Phone: Start: 07-13-2024 Renal function panel Negrito Glass PYTHON ENGINEER - HYDRAULIC PRESS OPERATOR Work Phone: Start: 06-27-2024 Renal function panel [...] TO MG FOR LOW K Cassie Lantigua PYTHON ENGINEER - [facility] Work Phone: Start: 02-27-2024 Blood count complete auto&auto difrntl wbc Cassie Lantigua PYTHON ENGINEER - [facility] Work Phone: Start: 02-26-2024 GLUCOSE, WHOLE BLOOD Ch marci Villegas MD Work Phone: Start: 02-26-2024 GLUCOSE, WHOLE BLOOD Ch marci Villegas MD Work Phone: Start: 02-26-2024 GLUCOSE, WHOLE BLOOD Ch marci Villegas MD Work Phone: Start: 02-26-2024 GLUCOSE, WHOLE BLOOD Ch marci Villegas MD Work Phone: Start: 02-26-2024 BASIC METABOLIC PANE L W/ REFLEX TO MG FOR LOW K Cassie Lantigua PYTHON ENGINEER - [facility] Work Phone: Start: 02-26-2024 Blood count complete auto&auto difrntl wbc Cassie Lantigua PYTHON ENGINEER - HYDRAULIC PRESS OPERATOR Work Phone: Start: 02-25-2024 End: 02-25-2024 GLUCOSE, WHOLE BLOOD Fred Villegas MD Work Phone: Start: 02-25-2024 Assay of magnesium [facility] [email or web address] HYDRAULIC PRESS OPERATOR Work Phone: Start: 02-25-2024 BASIC METABOLIC PANE L W/ REFLEX TO MG FOR LOW K Cassie Cosby [facility] [email or web address] HYDRAULIC PRESS OPERATOR Work Phone: Start: 02-24-2024 GLUCOSE, WHOLE BLOOD Kalyn Villegas MD Work Phone: Start: 02-24-2024 GLUCOSE, WHOLE BLOOD Kalyn Villegas MD Work Phone: Start: 02-24-2024 End: 02-24-2024 Radiologic examination tibia & fibula 2 views Bettina Burks PYTHON ENGINEER [email or web address] [facility] Work Phone: Start: 02-24-2024 Comprehensive metabo lic panel Bettina Burks PYTHON ENGINEER [email or web address] HYDRAULIC PRESS OPERATOR Work Phone: Start: 02-24-2024 Culture bacterial quanttative colony count urine Bettina Burks PYTHON ENGINEER [email or web address] [facility] Work Phone: Start: 02-24-2024 Urnls dip stick/tabl et rgnt auto w/o microscopy Bettina Burks PYTHON ENGINEER [email or web address] [facility] Work Phone: Start: 02-09-2024 Basic metabolic pane [...] metabolic pane l calcium total Kena Boyd PYTHON ENGINEER - CHOIR LEADER Work Phone: Start: 11-03-2023 Radiologic exam ches t single view Kena Boyd PYTHON ENGINEER - CHOIR LEADER Work Phone: Start: 11-03-2023 GLUCOSE, WHOLE BLOOD [...] exam ches t 2 views Nancy Roe PYTHON ENGINEER - HYDRAULIC PRESS OPERATOR Work Phone: Start: 07-11-2022 Echo tthrc r-t [...] r eal time w/image complete Arabella Lucero [employer] PA[employer] Work Phone: Start: 05-13-2022 PSA screening Jorge Pritchett DO Work Phone: Comment on above: The Cyndi ECLIA as say is used. Results obtained with different assay methods cannot be used interchangeably. Start: 05-13-2022 Basic metabolic pane l calcium total Arabella Lucero [employer] Work Phone: Start: 03-20-2022 Basic metabolic pane l calcium total Nancy W Jyothi PYTHON ENGINEER - HYDRAULIC PRESS OPERATOR Work Phone: Start: 09-11-2021 Ct abdomen & pelvis w/o contrast material Arabella RAINES-[employer] Work Phone: Start: 06-01-2021 Basic metabolic pane [...] 2d w/wom-mode compl spec&colr d Cassie Morejon PYTHON ENGINEER - HYDRAULIC PRESS OPERATOR Work Phone: Start: 05-28-2021 GLUCOSE, WHOLE BLOOD [...] ast 12 lds i&r only Cassie Morejon [employer] Work Phone: Start: 05-27-2021 BASIC METABOLIC PANE L W/ REFLEX TO MG FOR LOW K Cassie Morejon [employer] Work Phone: Start: 05-27-2021 Hemoglobin glycosylated a1c Cassie Morejon [employer] Work Phone: Start: 05-27-2021 Radiologic exam ches t 2 views Cassie Morejon [employer] Work Phone: Start: 07-25-2020 Urnls dip stick/tabl [...] DTaP/Tdap/Td vaccine (2 - Td or Tdap) [employer] Start: 11-27-2026 Screening for malignant neoplasm of colon [employer] Start: 12-06-2025 GFR test (Diabetes, CKD 3-4, OR last GFR 15-59) GFR test (Diabetes, CKD 3-4, OR last GFR 15-59) [employer] Start: 11-01-2025 GFR test (Diabetes, CKD 3-4, OR last GFR 15-59) GFR test (Diabetes, CKD 3-4, OR last GFR 15-59) [employer] Start: 10-20-2025 GFR test (Diabetes, CKD 3-4, OR last GFR 15-59) GFR test (Diabetes, CKD 3-4, OR last GFR 15-59) [employer] Start: 10-09-2025 End: 10-09-2025 Patient encounter procedure 10/09/2025 1:00 PM EDT Office Visit [facility] [address] [place] [address] Arabella Dyer PA-C [address] [place] [address] 1Y psa [facility] Part [facility] Comment on above: 1Y psa Start: 10-04-2025 Hemoglobin A1c measurement A1C test (Diabetic or Prediabetic) [facility] Start: 09-20-2025 GFR test (Diabetes, CKD 3-4, OR last GFR 15-59) GFR test (Diabetes, CKD 3-4, OR last GFR 15-59) [facility] Start: 08-23-2025 GFR test (Diabetes, CKD 3-4, OR last GFR 15-59) GFR test (Diabetes, CKD 3-4, OR last GFR 15-59) [facility] Start: 07-22-2025 GFR test (Diabetes, CKD 3-4, OR last GFR 15-59) GFR test (Diabetes, CKD 3-4, OR last GFR 15-59) [facility] Start: 07-13-2025 GFR test (Diabetes, CKD 3-4, OR last GFR 15-59) GFR test (Diabetes, CKD 3-4, OR last GFR 15-59) [facility] Start: 07-12-2025 End: 07-12-2025 Follow-up encounter 07/12/2025 1:00 PM EST Pharmacy Visit [facility] [address] [place] [phone] Heart Failure FU- 6month follow-up [facility] Comment on above: Heart Failure FU- 6month follow-up Start: 06-27-2025 GFR test (Diabetes, CKD 3-4, OR last GFR 15-59) GFR test (Diabetes, CKD 3-4, OR last GFR 15-59) [facility] Start: 05-11-2025 GFR test (Diabetes, CKD 3-4, OR last GFR 15-59) GFR test (Diabetes, CKD 3-4, OR last GFR 15-59) [facility] Start: 05-06-2025 GFR test (Diabetes, CKD 3-4, OR last GFR 15-59) GFR test (Diabetes, CKD 3-4, OR last GFR 15-59) [facility] Start: 04-27-2025 End: 04-27-2025 Patient encounter procedure 04/27/2025 1:40 PM EST Office Visit [facility] [address] [phone] Alma Kan MD [address] [place] [address] [place] [address] 6 month [facility] Comment on above: 6 month Start: 04-12-2025 End: 04-12-2025 Patient encounter procedure 04/12/2025 2:30 PM EST Office Visit [facility] [address] [place], [phone] Arabella Dyer, PA-C [address] [place] [address] [address] [place] [address] 6M pvr [facility] Comment on above: 6M pvr Start: 04-01-2025 GFR test (Diabetes, CKD 3-4, OR last GFR 15-59) GFR test (Diabetes, CKD 3-4, OR last GFR 15-59) [facility] Start: 03-15-2025 GFR test (Diabetes, CKD 3-4, OR last GFR 15-59) GFR test (Diabetes, CKD 3-4, OR last GFR 15-59) [facility] Start: 03-15-2025 End: 03-15-2025 Patient encounter procedure 03/15/2025 1:30 PM EDT Office Visit [facility] VASC[facility] Part [address] [place] [address] Floyd Vee MD [address] [place] [address] [address] [place] [address] F/U from 09/14/24 [facility] Comment on above: F/U from 09/14/24 Start: 02-27-2025 GFR test (Diabetes, CKD 3-4, OR last GFR 15-59) GFR test (Diabetes, CKD 3-4, OR last GFR 15-59) [facility] Start: 02-26-2025 GFR test (Diabetes, CKD 3-4, OR last GFR 15-59) GFR test (Diabetes, CKD 3-4, OR last GFR 15-59) [facility] Start: 02-23-2025 Diabetic foot examination Diabetic foot exam [facility] Start: 02-23-2025 Hemoglobin A1c measurement A1C test (Diabetic or Prediabetic) [facility] Start: 02-16-2025 End: 02-16-2025 Patient encounter procedure 02/16/2025 2:45 PM EDT Procedure Visit [facility] [address] [place] [phone] Alice Cochran DPM [address] [place] [address] [facility] Start: 02-08-2025 GFR test (Diabetes, CKD 3-4, OR last GFR 15-59) GFR test (Diabetes, CKD 3-4, OR last GFR 15-59) [facility] Start: 12-27-2024 End: 12-27-2024 Patient encounter procedure 12/27/2024 10:30 AM EDT Appointment [facility] [address] [place] [address] Quincy Penn DPM [address] [address] right great toe [facility] Comment on above: right great toe Start: 12-23-2024 Influenza vaccination [facility] Start: 12-20-2024 GFR test (Diabetes, CKD 3-4, OR last GFR 15-59) GFR test (Diabetes, CKD 3-4, OR last GFR 15-59) [facility] Start: 12-06-2024 End: 12-06-2024 Patient encounter procedure 12/06/2024 12:00 PM EDT Appointment [facility] [address] [place] [address] Quincy Penn, SUNDAY [address] [place] [address] right great toe amputation [facility] Comment on above: right great toe amputation Start: 11-22-2024 End: 11-22-2024 Patient encounter procedure 11/22/2024 11:00 AM EDT Appointment [facility] [address] [place] [address] Quincy Penn, [facility] [address] [place] [address] [address] [place] [address] right great toe, left 3rd toe [facility] Comment on above: right great toe, left 3rd toe Start: 11-16-2024 End: 11-16-2024 Follow-up encounter [facility] Comment on above: Heart Failure FU- 3 month follow-up Heart Failure FU- 3 month follow-up, APPT CONFIRMED W/ 11/15/24 [facility] Start: 11-11-2024 End: 11-11-2024 Amputation toe metatarsophalangeal joint TOE AMPUTATION Acute osteomyelitis of right foot (HCC) 11/11/2024 7:40 AM EDT [facility] Start: 11-10-2024 GFR test (Diabetes, CKD 3-4, OR last GFR 15-59) GFR test (Diabetes, CKD 3-4, OR last GFR 15-59) [facility] Start: 11-10-2024 Hemoglobin A1c measurement A1C test (Diabetic or Prediabetic) [facility] Start: 11-10-2024 Lipid panel Lipids [facility] Start: 11-09-2024 End: 11-09-2024 Patient encounter procedure 11/09/2024 1:30 PM EDT Procedure Visit [facility] [address] [place] [phone] Alice Cochran DPM [address] [place], [place] [phone] Arrived [facility] Comment on above: Arrived Start: 11-02-2024 GFR test (Diabetes, CKD 3-4, OR last GFR 15-59) GFR test (Diabetes, CKD 3-4, OR last GFR 15-59) [facility] Start: 11-01-2024 End: 11-01-2024 Patient encounter procedure 11/01/2024 11:30 AM EDT [facility]ment [facility] [address] [place] [phone] Quincy Penn DPM [address] [address] right great toe, 2nd and 3rd toe [facility] Comment on above: right great toe, 2nd and 3rd toe Start: 10-20-2024 End: 10-20-2024 Patient encounter procedure 10/20/2024 2:00 PM EDT Office Visit [facility] Part [address] [address] Lev Duarte, PYTHON ENGINEER - HYDRAULIC PRESS OPERATOR [address] [place] [address] 3 month/ [facility] Comment on above: 3 month/ Start: 10-12-2024 End: 10-12-2024 Follow-up encounter 10/12/2024 11:00 AM EDT Pharmacy Visit [facility] [address] [place] [phone] Heart Failure FU- 3 month follow-up [facility] Comment on above: Heart Failure FU- 3 month follow-up Start: 10-06-2024 GFR test (Diabetes, CKD 3-4, OR last GFR 15-59) GFR test (Diabetes, CKD 3-4, OR last GFR 15-59) [facility] Start: 10-05-2024 End: 10-05-2024 Patient encounter procedure [facility] Comment on above: 6 weeks PSA, PVR 6 weeks PSA, PVR. 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) Expected: 10/04/2024, Expires: 10/04/2025 [facility] Comment on above: Expected: 10/04/2024, Expires: Start: 10-04-2024 End: 10-04-2024 Patient encounter procedure 10/04/2024 11:00 AM EDT Appointment [facility] [address] [place] [address] Quincy Penn, SUNDAY [address] [address] right great toe 4 week f/u [facility] Comment on above: right great toe 4 week f/u Start: 09-24-2024 Hemoglobin A1c measurement A1C test (Diabetic or Prediabetic) [facility] Start: 09-19-2024 End: 09-19-2024 Patient encounter procedure 09/19/2024 2:00 PM EDT Office Visit [facility] Part [facility] [address] [place] [address] Lve Duarte, PYTHON ENGINEER - HYDRAULIC PRESS OPERATOR [address] [place] [address] 3 month/ [facility] Comment on above: 3 month/ Start: 09-14-2024 End: 09-14-2024 Patient encounter procedure 09/14/2024 12:45 PM EDT Office Visit [facility] Part [address] [place] [address] Floyd Vee MD [address] [place] [address] [place] [address] 3mo F/U from 06/15/24 [facility] Comment on above: 3mo F/U from 06/15/24 Start: 09-06-2024 End: 09-06-2025 XR Toes - right 2 Views [facility] Comment on above: Expected: 09/06/2024, Expires: 6 1 Occurrences starti ng 09/06/2024 until 09/06/2024 Start: 09-06-2024 End: 09-06-2024 Patient encounter procedure 09/06/2024 11:30 AM EDT Appointment [facility] [address] [place] [address] [address] [place] [address] Quincy Penn, DPM [address] [place] [phone] right great toe 3 week f/u [facility] [facility] Comment on above: right great toe 3 week f/u Start: 08-26-2024 Depression Screen Depression Screen [facility] Start: 08-23-2024 Annual Wellness Visit (Medicare) Annual Wellness Visit (Medicare) [facility] Start: 08-22-2024 End: 08-22-2024 Patient encounter procedure 08/22/2024 10:45 AM EDT Office Visit [facility] [address] [place] [address] Arabella Dyer, PA-C [address] [place] [address] [address] [place] [address] 2-3 week follow up PVR [facility] Comment on above: 2-3 week follow up PVR Start: 08-16-2024 Annual Wellness Visit (Medicare) Annual Wellness Visit (Medicare) [facility] Start: 08-16-2024 End: 08-16-2024 Patient encounter procedure 08/16/2024 2:00 PM EDT Office Visit [facility] CARDI[facility] [address] [place] [address] Alma Kan MD [address] [place] [address] 3 month follow up [facility] Comment on above: 3 month follow up Start: 08-16-2024 End: 08-16-2025 XR Toes - right 2 Views [facility] Comment on above: Expected: 08/16/2024, Expires: 1 Occurrences starti ng 08/16/2024 until 08/16/2024 Start: 08-08-2024 End: 08-08-2024 Patient encounter procedure 08/08/2024 1:30 PM EDT Procedure Visit [facility] [address] [place] [address] Alice Cochran DPM [address] [place] [address] [facility] Start: 08-04-2024 GFR test (Diabetes, CKD 3-4, OR last GFR 15-59) GFR test (Diabetes, CKD 3-4, OR last GFR 15-59) [facility] Start: 08-02-2024 End: 08-02-2024 Patient encounter procedure 08/02/2024 11:30 AM EDT Appointment [facility] [address] [facility] [address] [place] [phone] Quincy Penn DPM [address] [facility] [address] [place] [address] right great toe [facility] Comment on above: right great toe Start: 07-30-2024 Pneumococcal 0-64 years Vaccine (3 - PPSV23 if available, else PCV20) Pneumococcal 0-64 years Vaccine (3 - PPSV23 if available, else PCV20) [facility] Start: 07-30-2024 Pneumococcal 0-64 years Vaccine (3 - PPSV23 or PCV20) Pneumococcal 0-64 years Vaccine (3 - PPSV23 or PCV20) [facility] Start: 07-30-2024 Pneumococcal 0-64 years Vaccine (3 of 3 - PPSV23 or PCV20) Pneumococcal 0-64 years Vaccine (3 of 3 - PPSV23 or PCV20) [facility] Start: 07-28-2024 Pneumococcal 50+ years Vaccine (3 of 3 - PCV20 or PCV21) Pneumococcal 50+ years Vaccine (3 of 3 - PCV20 or PCV21) [facility] Start: 07-13-2024 End: 07-13-2024 Follow-up encounter [facility] Comment on above: Heart Failure FU- 3 month follow-up Heart Failure FU- 3 month follow-up- LEFT VM REMINDING OF APPT 07/12/24 CO Start: 07-12-2024 End: 07-12-2024 Patient encounter procedure 07/12/2024 10:30 AM EST Appointment [facility] [address] [place] [address] [address] [place] [address] Quincy Penn DPM [address] [place] [address] [address] [address] bilateral lower legs [facility] Comment on above: bilateral lower legs Start: 06-30-2024 GFR test (Diabetes, CKD 3-4, OR last GFR 15-59) GFR test (Diabetes, CKD 3-4, OR last GFR 15-59) [facility] Start: 06-15-2024 End: 06-15-2024 Patient encounter procedure 06/15/2024 1:00 PM EST Office Visit [facility] V[facility] Part of [address] [place] [address] Floyd Vee MD [address] [place] [address] [address] [place] [phone] Critical Limb Ischemia BLE; 3 mth follow up with vascular duplex [facility] Comment on above: Critical Limb Ischemia BLE; 3 mth follow up with vascular duplex Start: 05-26-2024 End: 05-26-2024 Patient encounter procedure [facility] Comment on above: Arrived Start: 05-06-2024 End: 05-06-2024 Patient encounter procedure 05/06/2024 11:20 AM EST Office Visit [facility] [address] [place] [address] Alma Kan MD [address] [place] [address] 6 week [facility] Comment on above: 6 week Start: 04-25-2024 End: 04-25-2024 Patient encounter procedure 04/25/2024 1:00 PM EST Appointment [facility] [address] [place] [address] [phone] Floyd Vee MD [address] [facility] [address] [place] [address] EPIC* SCHED W PT SPOUSE [facility] Comment on above: EPIC* SCHED W PT SPOUSE Start: 04-19-2024 End: 04-19-2024 Patient encounter procedure 04/19/2024 2:15 PM EST Procedure Visit [facility] [address] [place] [phone] Alice Cochran, DPBettina [address] [place] [address] [facility] Start: 04-13-2024 End: 04-13-2024 ambulatory 04/13/2024 11:00 AM EST Pharmacy Visit [facility] [address] [place] [phone] Heart Failure FU [facility] Comment on above: Heart Failure FU Start: 04-05-2024 End: 04-05-2024 ambulatory 04/05/2024 11:00 AM EST Pharmacy Visit [facility] [address] [place] [phone] Heart Failure FU [facility] Comment on above: Heart Failure FU Start: 03-23-2024 End: 03-23-2024 Patient encounter procedure 03/23/2024 1:45 PM EDT Office Visit [facility] [address] [place] [phone] Alice Cochran, DPM [address] [place] [address] [facility] Start: 03-16-2024 End: 03-16-2024 Patient encounter procedure 03/16/2024 11:45 AM EDT Office Visit [facility] Part [address] [place] [address] Floyd Vee MD [address] [place] [address] [address] [place] [address] 4 weeks f/u IR [facility] Part [facility] Comment on above: 4 weeks f/u IR Start: 03-15-2024 End: 03-15-2024 Patient encounter procedure 03/15/2024 11:20 AM EDT Office Visit [facility] [address] [address] Alma Kan MD [address] [place] [address] [place] [address] 3 month [facility] Part [facility] Comment on above: 3 month Start: 03-08-2024 End: 03-08-2024 Admission to same day surgery center 03/08/2024 8:30 AM EDT - 03/08/2024 9:30 AM EDT Surgery [facility] Cardiac Cath/IR Lab [address], [place] [phone] Floyd Vee MD [address] [place] [address] Dr [address] [place] [address] Angiography lower ext bilat [facility] Comment on above: Angiography lower ext bilat Start: 03-08-2024 Subsequent hospital visit by physician 03/08/2024 8:30 AM EDT Hospital Encounter [facility]iac [facility]/IR Lab [address] [place] [address] Floyd Vee MD [address] [place] [address] Critical limb ischemia of both lower extremities (HCC) [facility] Comment on above: Critical limb ischemia of both lower ext remities (HCC) Start: 02-24-2024 End: 02-24-2024 ambulatory 02/24/2024 11:00 AM EDT [facility] [address] [place] [address] Heart Failure FU started metolazone 3x wk [facility] Comment on above: Heart Failure FU started metolazone 3x w k Start: 02-24-2024 End: 02-24-2024 Patient encounter procedure 02/24/2024 10:00 AM EDT Appointment [facility] [address] [place] [address] MEDIA - JARAD W/ PT [facility] Comment on above: MEDIA - JARAD W/ PT Start: 02-17-2024 End: 02-17-2024 Admission to same day surgery center 02/17/2024 3:00 PM EDT - 02/17/2024 4:00 PM EDT Surgery [facility] Cardiac Cath/EP Lab [facility] [place] [address] [place] [address] [facility] [address] [place] [address] simon / Percutaneous coronary intervention *arrive @ 0930 hydration* [facility] Cardiac Cath/EP Lab Comment on above: simon / Percutaneous coronary interventi on *arrive @ 0930 hydration* Start: 02-17-2024 Subsequent hospital visit by physician 02/17/2024 3:00 PM EDT Hospital Encounter [facility] Cardiac Cath/EP Lab [address] [place] [address] [place] [address] [place], [place] [phone] CAD (coronary artery disease) [facility] Cardiac Cath/EP Lab Comment on above: CAD (coronary artery disease) Start: 02-17-2024 End: 02-17-2024 Patient encounter procedure 02/17/2024 9:45 AM EDT Office Visit [facility] [address] [place] [phone] Alice Cochran DPM [address] [place], [place] [phone] Arrived [facility] Comment on above: Arrived Start: 02-15-2024 End: 02-15-2024 Patient encounter procedure 02/15/2024 10:45 AM EDT Office Visit [address] [place] [address] Floyd Vee MD [address] [place] [address] PVD (peripheral vascular disease) with claudication ([facility]) [facility] Comment on above: PVD (peripheral vascular disease) with c laudication ([facility]) Start: 02-15-2024 End: 02-15-2024 Patient encounter procedure 02/15/2024 9:30 AM EDT Office Visit [facility] [address] [place] [phone] Alice Cochran DPM [address] [place], [place] [phone] [facility] Start: 02-09-2024 End: 02-09-2024 Patient encounter procedure 02/09/2024 1:00 PM EDT Appointment [facility] [address] [place] [phone] 2 month FU [facility] Comment on above: 2 month FU Start: 02-03-2024 End: 02-03-2024 Patient encounter procedure 02/03/2024 10:40 AM EDT Office Visit [facility] C[facility] Part [address] [place] [phone] Alma Kan MD [address] [place] [address] [place] [address] 3 month [facility] Comment on above: 3 month Start: 01-24-2024 COVID-19 Vaccine ( season) COVID-19 Vaccine ( season) [facility] Start: 01-24-2024 COVID-19 Vaccine ( season) COVID-19 Vaccine ( season) [facility] Start: 12-24-2023 Influenza vaccination [facility] Start: 12-23-2023 End: 12-23-2023 Patient encounter procedure 12/23/2023 9:30 AM EDT Initial consult [facility] Cardiothoracic Surgical Ass [address] [facility] [address] [place] [phone] Adrian Delgadillo MD [address] [facility] [address] [place] [address] Correa for [facility] Cardiothoracic Surgical [facility] Comment on above: From Dr. Correa for MVD Start: 12-21-2023 End: 12-21-2023 Admission to same day surgery center 12/21/2023 12:00 PM EDT - 12/21/2023 1:00 PM EDT Surgery [facility] Cardiac Cath/IR Lab [address] [place] [address] [place] [address] [place] [address] Left heart cath / coronary angiography [facility] Cardiac Cath/IR Lab Comment on above: Left heart cath / coronary angiography Start: 12-21-2023 Subsequent hospital visit by physician 12/21/2023 12:00 PM EDT Hospital Encounter [facility] Cardiac Cath/IR Lab [address] [facility] [place] [address] [place] [address] [place] [address] Abnormal stress test; Chest pain; CAD (coronary artery disease) [facility] Cardiac Cath/IR Lab Comment on above: Abnormal stress test; Chest pain; CAD (coronary artery disease) Start: 12-09-2023 End: 12-09-2023 Patient encounter procedure [facility] Comment on above: CHF-NEW, coming after PT Start: 12-07-2023 End: 12-07-2023 Patient encounter procedure 12/07/2023 2:45 PM EDT Appointment [facility] Physical Therapy [address] [place] [address] [phone] Yumiko Montes PTA [facility] Physical Therapy Start: 12-06-2023 GFR test (Diabetes, CKD 3-4, OR last GFR 15-59) GFR test (Diabetes, CKD 3-4, OR last GFR 15-59) [facility] Start: 12-06-2023 Hemoglobin A1c measurement A1C test (Diabetic or Prediabetic) [facility] Start: 12-06-2023 Urine screening for protein Diabetic Alb to Cr ratio (uACR) test [facility] Start: 11-24-2023 End: 11-24-2023 Patient encounter procedure 11/24/2023 3:00 PM EDT Office Visit [facility] [address] [place] [address] Alma Kan MD [address] [place] [address] [place] [address] ED follow up/1-2 weeks per Lucius [facility] Comment on above: ED follow up/1-2 weeks per Lucius Start: 11-20-2023 End: 11-20-2023 Patient encounter procedure 11/20/2023 1:00 PM EDT Appointment [facility] [address] [place] [phone] Rashel Cárdenas, PT [facility] Comment on above: [facility] Start: 11-17-2023 End: 11-17-2023 Patient encounter procedure 11/17/2023 10:45 AM EDT Appointment [facility] [address] [place] [phone] Yumiko Montes DANCE MASTER [facility] Start: 11-11-2023 End: 11-11-2023 Patient encounter procedure 11/11/2023 2:45 PM EDT Appointment [facility] [address] [place] [phone] Yumiko Montes, DANCE MASTER [facility] Start: 11-11-2023 End: 11-11-2023 Patient encounter procedure 11/11/2023 10:30 AM EDT Appointment [facility] [address] [place] [phone] Yumiko Montes DANCE MASTER [facility] Start: 11-09-2023 End: 11-09-2023 Patient encounter procedure 11/09/2023 2:45 PM EDT Appointment [facility] [address] [place] [phone] Yumiko Montes DANCE MASTER [facility] Start: 11-06-2023 End: 11-06-2023 Patient encounter procedure 11/06/2023 12:15 PM EDT Appointment [facility] [address] [place] [phone] Huang Urbina, PT 30 day followup [facility] Comment on above: 30 day followup Start: 11-06-2023 Subsequent hospital visit by physician 11/06/2023 12:15 PM EDT Hospital Encounter [facility] Physical Therapy [address] [place] [phone] Yumiko Montes PTA [facility] Physical Therapy Start: 11-03-2023 End: 11-03-2023 Patient encounter procedure 11/03/2023 10:45 AM EDT Appointment [facility] Physical Therapy [address] [place] [phone] Yumiko Montes PTA [facility] Physical Therapy Start: 11-03-2023 End: 11-03-2023 Laser vaporization of prostate for urine flow CYSTOSCOPY TRANSURETHRAL RESECTION 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 11/03/2023 8:30 AM EDT [facility] Start: 10-29-2023 End: 10-29-2023 Patient encounter procedure 10/29/2023 9:15 AM EDT Appointment [facility] Physical Therapy [address] [place] [phone] Yumiko Montes PTA [facility] Physical Therapy Start: 10-27-2023 End: 10-27-2023 Patient encounter procedure 10/27/2023 10:30 AM EDT Appointment [facility] Physical Therapy [address] [place] [phone] Yumiko Montes PTA [facility] Physical Therapy Start: 10-26-2023 End: 10-26-2023 Patient encounter procedure 10/26/2023 11:15 AM EDT Procedure visit [facility] [address] [place] [address] Akira Ferrer MD [address] [place] [address], [address] [place] [address] cysto [facility] Comment on above: cysto Start: 10-16-2023 GFR test (Diabetes, CKD 3-4, OR last GFR 15-59) GFR test (Diabetes, CKD 3-4, OR last GFR 15-59) [facility] Start: 10-16-2023 Lipid panel Lipids [facility] Start: 10-01-2023 End: 10-01-2023 Patient encounter procedure 10/01/2023 11:00 AM EDT Office Visit [facility] [address] [place] [address] Nancy Roe, PYTHON ENGINEER - HYDRAULIC PRESS OPERATOR [address] [place] [address] Dr [address] [place] [address] 8wk F/U Labs prior PVR [facility] Comment on above: 8wk F/U Labs prior PVR Start: 09-17-2023 End: 09-17-2023 Patient encounter procedure 09/17/2023 1:40 PM EDT Office Visit [facility] C[facility] [address] [place] [address] Alma Kan MD [address] [place] [address] [place] [address] 6 month [facility] Comment on above: 6 month Start: 08-05-2023 End: 08-05-2023 Patient encounter procedure 08/05/2023 11:30 AM EDT Office Visit [address] [place] [address] Arabella Dyer, PA-C [address] [place] [address] [address] [place] [address] 3 month f/u, PVR [facility] Comment on above: 3 month f/u, PVR Start: 05-13-2023 GFR test (Diabetes, CKD 3-4, OR last GFR 15-59) GFR test (Diabetes, CKD 3-4, OR last GFR 15-59) [facility] Start: 03-04-2023 End: 03-04-2023 Patient encounter procedure 03/04/2023 Office Visit Cardiology Alma Kan MD [address] [place] [address] [place] [address] [facility] Start: 02-05-2023 End: 02-05-2023 Patient encounter procedure 02/05/2023 Office Visit Urology [facility] Start: 01-28-2023 End: 01-28-2023 Patient encounter procedure 01/28/2023 Appointment Radiology [facility] MRI Start: 01-27-2023 End: 01-27-2023 Patient encounter procedure 01/27/2023 Appointment Radiology [facility] Start: 01-01-2023 End: 01-01-2023 Patient encounter procedure 01/01/2023 Office Visit Cardiology Alma Kan MD [address] [place] [address] [facility] Start: 12-23-2022 Influenza vaccination [facility] Start: 12-22-2022 End: 12-22-2022 Patient encounter procedure 12/22/2022 [facility] Start: 12-18-2022 End: 12-18-2022 Patient encounter procedure 12/18/2022 Appointment Physical Therapy Rashel Cárdenas PT [facility] Start: 12-17-2022 End: 12-17-2022 Patient encounter procedure 12/17/2022 Appointment Physical Therapy Shirin Bajwa PTA [facility] Start: 12-15-2022 End: 12-15-2022 Patient encounter procedure 12/15/2022 Appointment Radiology [facility] CT Scan Start: 12-11-2022 End: 12-11-2022 Patient encounter procedure 12/11/2022 Appointment Physical Therapy Rashel Cárdenas PT [facility] Start: 12-08-2022 End: 12-08-2022 Patient encounter procedure 12/08/2022 Appointment Physical Therapy Shirin Bajwa PTA [facility] Start: 12-03-2022 End: 12-03-2022 Patient encounter procedure 12/03/2022 Appointment Physical Therapy Shirin Bajwa DANCE MASTER [facility] Start: 12-02-2022 End: 12-02-2022 Patient encounter procedure [facility] Start: 11-20-2022 End: 11-20-2022 Patient encounter procedure 11/20/2022 Appointment Physical Therapy Rashel Cárdenas, PT [facility] Start: 11-18-2022 End: 11-18-2022 Patient encounter procedure 11/18/2022 Appointment Physical Therapy Abby Quintero, PT [facility] Start: 11-14-2022 End: 11-14-2022 Patient encounter procedure 11/14/2022 Appointment Physical Therapy Sharonda Gonzalez, DANCE MASTER [facility] Start: 11-07-2022 End: 11-07-2022 Patient encounter procedure [facility] Start: 11-06-2022 [facility] Start: 11-05-2022 End: 11-05-2022 Patient encounter procedure 11/05/2022 Office Visit Urology [facility] Start: 11-03-2022 End: 11-03-2022 Patient encounter procedure 11/03/2022 Appointment Physical Therapy Shirin Bajwa DANCE MASTER [facility] Start: 10-31-2022 End: 10-31-2022 Patient encounter procedure 10/31/2022 Appointment Physical Therapy Shirin Bajwa, DANCE MASTER [facility] Start: 10-27-2022 End: 10-27-2022 Patient encounter procedure 10/27/2022 Appointment Physical Therapy Shirin Bajwa DANCE MASTER [facility] Start: 10-24-2022 End: 10-24-2022 Patient encounter procedure 10/24/2022 Appointment Physical Therapy Chris Sauceda, PT [facility] Start: 10-22-2022 End: 10-22-2022 Patient encounter procedure 10/22/2022 Appointment Physical Therapy Shirin Bajwa DANCE MASTER [facility] Start: 10-17-2022 End: 10-17-2022 Patient encounter procedure 10/17/2022 Appointment Physical Therapy Shirin Bajwa DANCE MASTER [facility] Start: 10-16-2022 End: 10-16-2022 Patient encounter procedure 10/16/2022 Office Visit Cardiology Alma Kan MD [address] [place] [address] [facility] Start: 10-15-2022 End: 10-15-2022 Patient encounter procedure 10/15/2022 Office Visit Cardiology Alma Kan MD [address] [place] [address] [facility] Start: 10-13-2022 End: 10-13-2022 Patient encounter procedure 10/13/2022 Appointment Physical Therapy Shirin Bajwa DANCE MASTER [facility] Start: 10-09-2022 End: 10-09-2022 Patient encounter procedure 10/09/2022 Appointment Physical Therapy Chris Sauceda, PT [facility] Start: 10-03-2022 End: 10-03-2022 Patient encounter procedure 10/03/2022 Appointment Physical Therapy Shirin Bajwa DANCE MASTER [facility] Start: 09-29-2022 End: 09-29-2022 Patient encounter procedure 09/29/2022 Appointment Physical Therapy Shirin Bajwa DANCE MASTER [facility] Start: 09-26-2022 End: 09-26-2022 Patient encounter procedure 09/26/2022 Appointment Physical Therapy Shirin Bajwa DANCE MASTER [facility] Start: 09-22-2022 End: 09-22-2022 Patient encounter procedure 09/22/2022 Appointment Physical Therapy Shirin Bajwa DANCE MASTER [facility] Start: 09-19-2022 End: 09-19-2022 Patient encounter procedure 09/19/2022 Appointment Physical Therapy Rashel Cárdenas PT [facility] Start: 09-15-2022 End: 09-15-2022 Patient encounter procedure 09/15/2022 Appointment Physical Therapy Shirin Bajwa DANCE MASTER [facility] Start: 09-12-2022 End: 09-12-2022 Patient encounter procedure 09/12/2022 Appointment Physical Therapy Shirin Bajwa DANCE MASTER [facility] Start: 09-09-2022 End: 09-09-2022 Patient encounter procedure 09/09/2022 Appointment Physical Therapy Chris Sauceda, PT [facility] Start: 09-09-2022 Creatinine measurement Creatinine [facility] Start: 09-09-2022 Potassium [Moles/volume] in Serum or Plasma Potassium [facility] Start: 09-08-2022 End: 09-08-2022 Patient encounter procedure 09/08/2022 Appointment Physical Therapy Shirin Bajwa PTA [facility] Start: 09-05-2022 End: 09-05-2022 Patient encounter procedure 09/05/2022 Appointment Physical Therapy Chris Sauceda, PT [facility] Start: 09-02-2022 End: 09-02-2022 Patient encounter procedure 09/02/2022 Office Visit Urology [facility] Start: 09-01-2022 End: 09-01-2022 Patient encounter procedure 09/01/2022 Appointment Physical Therapy Shirin Bajwa PTA [facility] Start: 08-29-2022 End: 08-29-2022 Patient encounter procedure 08/29/2022 Appointment Physical Therapy Shirin Bajwa, [facility] Start: 08-25-2022 End: 08-25-2022 Patient encounter procedure 08/25/2022 Appointment Physical Therapy Chris Sauceda, PT [facility] Start: 07-17-2022 End: 07-17-2022 Patient encounter procedure [facility] Start: 07-15-2022 End: 07-15-2022 Admission to same day surgery center 07/15/2022 Surgery IP Unit Akira Ferrer MD [address] [place] [address], [address] [place] [address] CYSTOSCOPY TRANSURETHRAL RESECTION PROSTATE LASER-PVP GREENLIGHT [facility] Comment on above: CYSTOSCOPY TRANSURETHRAL RESECTION PROST ATE LASER-PVP GREENLIGHT Start: 07-15-2022 End: 07-15-2022 Laser vaporization of prostate for urine flow [facility] Start: 07-15-2022 Subsequent hospital visit by physician 07/15/2022 Hospital Encounter IP Unit Akira Ferrer MD [address], [address] [place], [place] [id number] [facility] Start: 07-15-2022 End: 07-15-2022 Admission to same day surgery center 07/15/2022 Surgery IP Unit Akira Ferrer MD [address] [facility], [address] [place], [place] [id number] CYSTOSCOPY TRANSURETHRAL RESECTION PROSTATE LASER-PVP GREENLIGHT [facility] Comment on above: CYSTOSCOPY TRANSURETHRAL RESECTION PROST ATE LASER-PVP GREENLIGHT Start: 07-15-2022 End: 07-15-2022 Laser vaporization of prostate for urine flow CYSTOSCOPY TRANSURETHRAL RESECTION PROSTATE LASER Enlarged prostate with urinary obstruction 07/15/2022 11:05 AM EST [facility] Start: 07-15-2022 Subsequent hospital visit by physician 07/15/2022 Hospital Encounter IP Unit Akira Ferrer MD [address], [address] [place], [place] [id number] [facility] Start: 07-14-2022 End: 07-14-2022 Patient encounter procedure 07/14/2022 Appointment Stress Lab [facility] Start: 07-04-2022 End: 07-04-2022 Patient encounter procedure 07/04/2022 Office Visit Cardiology Alma Kan MD [address] [place] [address] [place] [id number] [facility] Start: 06-06-2022 Hemoglobin A1c measurement A1C test (Diabetic or Prediabetic) [facility] Start: 06-01-2022 Creatinine measurement Creatinine monitoring [facility] Start: 06-01-2022 Potassium monitoring Potassium monitoring [facility] Start: 05-30-2022 End: 05-30-2022 Patient encounter procedure 05/30/2022 Procedure visit Urology [facility] Start: 05-29-2022 Lipid panel [facility] Start: 05-27-2022 Hemoglobin A1c measurement A1C test (Diabetic or Prediabetic) [facility] Start: 05-23-2022 End: 05-23-2022 Patient encounter procedure 05/23/2022 Appointment Physical Therapy Huang Urbina, PT [facility] Start: 05-22-2022 End: 05-22-2022 Patient encounter procedure 05/22/2022 Appointment Physical Therapy Huang Urbina, PT [facility] Start: 05-15-2022 End: 05-15-2022 Patient encounter procedure 05/15/2022 Appointment Physical Therapy Huang Urbina, PT [facility] Start: 05-13-2022 End: 05-13-2022 Patient encounter procedure 05/13/2022 Office Visit Urology [facility] Start: 05-12-2022 End: 05-12-2022 Patient encounter procedure 05/12/2022 Appointment Physical Therapy Huang Urbina, PT [facility] Start: 05-06-2022 End: 05-06-2022 Patient encounter procedure 05/06/2022 Appointment Physical Therapy Huang Urbina, PT [facility] Start: 04-11-2022 End: 04-11-2022 Patient encounter procedure 04/11/2022 Appointment Physical Therapy Doc Agrawal, [facility] Start: 04-09-2022 End: 04-09-2022 Patient encounter procedure 04/09/2022 Appointment Physical Therapy Chris Sauceda, PT [facility] Start: 04-04-2022 End: 04-04-2022 Patient encounter procedure 04/04/2022 Office Visit Cardiology Alma Kan MD [address] [place] [address] [place] [phone] [facility] Start: 04-02-2022 End: 04-02-2022 Patient encounter procedure 04/02/2022 Appointment Physical Therapy Doc Agrawal, [facility] Start: 03-31-2022 End: 03-31-2022 Patient encounter procedure 03/31/2022 Appointment Physical Therapy Chris Sauceda, PT [facility] Start: 03-26-2022 End: 03-26-2022 Patient encounter procedure 03/26/2022 Appointment Physical Therapy Rashel Cárdenas, PT [facility] Start: 03-24-2022 End: 03-24-2022 Patient encounter procedure 03/24/2022 Appointment Physical Therapy Huang Urbina PT [facility] Start: 03-20-2022 End: 03-20-2022 Patient encounter [facility] Start: 03-18-2022 End: 03-18-2022 Patient encounter procedure 03/18/2022 Appointment Physical Therapy Chris Sauceda, PT [facility] Start: 03-18-2022 End: 03-18-2022 Patient encounter procedure [facility] Start: 03-14-2022 End: 03-14-2022 Patient encounter procedure 03/14/2022 Appointment Physical Therapy Yumiko Montes, [facility] Start: 03-06-2022 End: 03-06-2022 Patient encounter procedure 03/06/2022 Appointment Physical Therapy Rashel Cárdenas, PT [facility] Start: 03-03-2022 End: 03-03-2022 Patient encounter procedure 03/03/2022 Appointment Physical Therapy Yumiko Montes, [facility] Start: 02-20-2022 End: 02-20-2022 Patient encounter procedure 02/20/2022 Appointment Physical Therapy Rashel Cárdenas, PT [facility] Start: 02-18-2022 End: 02-18-2022 Patient encounter procedure [facility] Start: 02-14-2022 End: 02-14-2022 Patient encounter procedure 02/14/2022 Appointment Physical Therapy Huang Urbina, PT [facility] Start: 02-07-2022 End: 02-07-2022 Patient encounter procedure 02/07/2022 Appointment Physical Therapy Yumiko Montes, [facility] Start: 02-06-2022 End: 02-06-2022 Patient encounter procedure 02/06/2022 Appointment Physical Therapy Rashel Cárdenas, PT [facility] Start: 01-31-2022 End: 01-31-2022 Patient encounter procedure [facility] Start: 01-30-2022 End: 01-30-2022 Patient encounter procedure [facility] Start: 01-28-2022 End: 01-28-2022 Patient encounter procedure 01/28/2022 Appointment Physical Therapy Rashel Cárdenas, PT [facility] Start: 01-27-2022 End: 01-27-2022 Patient encounter procedure 01/27/2022 Appointment Cardiac Rehabilitation [facility] Card[facility] Rehab Start: 01-24-2022 End: 01-24-2022 Patient encounter procedure 01/24/2022 Appointment Physical Therapy Rashel Cárdenas, PT [facility] Physical Therapy Start: 01-23-2022 Influenza vaccination [facility] Start: 01-23-2022 End: 01-23-2022 Patient encounter procedure [facility] Card[facility] Rehab Start: 01-21-2022 End: 01-21-2022 Patient encounter procedure 01/21/2022 Appointment Physical Therapy Doc Agrawal PTA [facility] Physical Therapy Start: 01-20-2022 End: 01-20-2022 Patient encounter procedure 01/20/2022 Appointment Cardiac Rehabilitation [facility] Cardiac Rehab Start: 01-16-2022 End: 01-16-2022 Patient encounter procedure [facility] Card[facility] Re[facility] Start: 01-14-2022 End: 01-14-2022 Patient encounter procedure 01/14/2022 Appointment Physical Therapy Colton Lim [facility] Physical Therapy Start: 01-13-2022 End: 01-13-2022 Patient encounter procedure 01/13/2022 Appointment Cardiac Rehabilitation [facility] Cardiac Rehab Start: 01-10-2022 End: 01-10-2022 Patient encounter procedure 01/10/2022 Appointment Physical Therapy Doc Agrawal PTA [facility] Physical Therapy Start: 01-09-2022 End: 01-09-2022 Patient encounter procedure 01/09/2022 Appointment Cardiac Rehabilitation [facility] Card[facility] Rehab Start: 01-08-2022 End: 01-08-2022 Patient encounter procedure 01/08/2022 Appointment Physical Therapy Doc Agrawal PTA [facility] Physical Therapy Start: 01-06-2022 End: 01-06-2022 Patient encounter procedure [facility] Start: 01-03-2022 End: 01-03-2022 Patient encounter procedure 01/03/2022 Appointment Physical Therapy Dco Agrawal PTA [facility] Physical Therapy Start: 01-02-2022 End: 01-02-2022 Patient encounter procedure [facility] Start: 01-01-2022 End: 01-01-2022 Patient encounter procedure 01/01/2022 Appointment Physical Therapy Doc Agrawal PTA [facility] Physical Therapy Start: 12-30-2021 End: 12-30-2021 Patient encounter procedure [facility] Card[facility] Rehab Start: 12-27-2021 End: 12-27-2021 Patient encounter procedure 12/27/2021 Appointment Physical Therapy Rashel Cárdenas, PT [facility] Physical Therapy Start: 12-26-2021 End: 12-26-2021 Patient encounter procedure [facility] Card[facility] Re[facility] Start: 12-24-2021 End: 12-24-2021 Patient encounter procedure 12/24/2021 Appointment Physical Therapy Colton Lim [facility] Physical Therapy Start: 12-23-2021 Influenza vaccination Flu vaccine (#1) [facility] Start: 12-23-2021 End: 12-23-2021 Patient encounter procedure 12/23/2021 Appointment Cardiac Rehabilitation [facility] Card[facility] Rehab Start: 12-20-2021 End: 12-20-2021 Patient encounter procedure 12/20/2021 Appointment Physical Therapy Rashel Cárdenas, PT [facility] Physical Therapy Start: 12-19-2021 End: 12-19-2021 Patient encounter procedure 12/19/2021 Appointment Cardiac Rehabilitation [facility] Cardiac Rehab Start: 12-18-2021 Subsequent hospital visit by physician 12/18/2021 Hospital Encounter Physical Therapy Doc Agrawal PTA [facility] Physical Therapy Start: 12-18-2021 End: 12-18-2021 Patient encounter procedure 12/18/2021 Appointment Cardiac Rehabilitation [facility] Cardiac Rehab Start: 12-16-2021 End: 12-16-2021 Patient encounter procedure 12/16/2021 Appointment Cardiac Rehabilitation [facility] Card[facility] Rehab Start: 12-12-2021 End: 12-12-2021 Patient encounter procedure 12/12/2021 Appointment Cardiac Rehabilitation [facility] Card[facility] Rehab Start: 12-11-2021 End: 12-11-2021 Patient encounter procedure 12/11/2021 Appointment Cardiac Rehabilitation [facility] Card[facility] Rehab Start: 12-09-2021 End: 12-09-2021 Patient encounter procedure 12/09/2021 Appointment Cardiac Rehabilitation [facility] Card[facility] Rehab Start: 12-05-2021 End: 12-05-2021 Patient encounter procedure 12/05/2021 Appointment Cardiac Rehabilitation [facility] Cardiac Rehab Start: 12-04-2021 End: 12-04-2021 Patient encounter procedure 12/04/2021 Appointment Cardiac Rehabilitation [facility] Cardiac Rehab Start: 12-02-2021 End: 12-02-2021 Patient encounter procedure 12/02/2021 Appointment Cardiac Rehabilitation [facility] Card[facility] Rehab Start: 11-28-2021 End: 11-28-2021 Patient encounter procedure 11/28/2021 Appointment Cardiac Rehabilitation [facility] Card[facility] Rehab Start: 11-25-2021 End: 11-25-2021 Patient encounter procedure 11/25/2021 Appointment Cardiac Rehabilitation [facility] Card[facility] Rehab Start: 11-21-2021 End: 11-21-2021 Patient encounter procedure 11/21/2021 Appointment Cardiac Rehabilitation [facility] Card[facility] Rehab Start: 11-18-2021 End: 11-18-2021 Patient encounter procedure 11/18/2021 Appointment Cardiac Rehabilitation [facility] Cardiac Rehab Start: 11-14-2021 End: 11-14-2021 Patient encounter procedure 11/14/2021 Appointment Cardiac Rehabilitation [facility] Card[facility] Rehab Start: 11-11-2021 End: 11-11-2021 Patient encounter procedure 11/11/2021 Appointment Cardiac Rehabilitation [facility] Card[facility] Rehab Start: 11-07-2021 End: 11-07-2021 Patient encounter procedure 11/07/2021 Appointment Cardiac Rehabilitation [facility] Start: 11-04-2021 End: 11-04-2021 Patient encounter procedure 11/04/2021 Appointment Cardiac Rehabilitation [facility] Card[facility] Rehab Start: 10-31-2021 End: 10-31-2021 Patient encounter procedure 10/31/2021 Appointment Cardiac Rehabilitation [facility] Card[facility] Rehab Start: 10-28-2021 End: 10-28-2021 Patient encounter procedure 10/28/2021 Appointment Cardiac Rehabilitation [facility] Card[facility] Rehab Start: 10-24-2021 End: 10-24-2021 Patient encounter procedure 10/24/2021 Appointment Cardiac Rehabilitation [facility] Card[facility] Rehab Start: 10-21-2021 End: 10-21-2021 Patient encounter procedure 10/21/2021 Appointment Cardiac Rehabilitation [facility] Card[facility] Rehab Start: 10-17-2021 End: 10-17-2021 Patient encounter procedure 10/17/2021 Appointment Cardiac Rehabilitation [facility] Start: 10-14-2021 End: 10-14-2021 Patient encounter procedure 10/14/2021 Appointment Cardiac Rehabilitation [facility] Card[facility] Rehab Start: 10-10-2021 End: 10-10-2021 Patient encounter procedure 10/10/2021 Appointment Cardiac Rehabilitation [facility] Card[facility] Rehab Start: 10-09-2021 End: 10-09-2021 Patient encounter procedure 10/09/2021 Appointment Cardiac Rehabilitation [facility] Card[facility] Rehab Start: 10-07-2021 End: 10-07-2021 Patient encounter procedure 10/07/2021 Appointment Cardiac Rehabilitation [facility] Card[facility] Rehab Start: 10-03-2021 End: 10-03-2021 Patient encounter procedure 10/03/2021 Appointment Cardiac Rehabilitation [facility] Card[facility] Rehab Start: 09-30-2021 End: 09-30-2021 Patient encounter procedure 09/30/2021 Appointment Cardiac Rehabilitation [facility] Cardiac Rehab Start: 09-27-2021 End: 09-27-2021 Patient encounter procedure 09/27/2021 Office Visit Cardiology Alma Kan MD [address] [place] [address] [facility] Start: 09-16-2021 End: 09-16-2021 Patient encounter procedure 09/16/2021 Office Visit Urology Akira Ferrer MD [address] [facility], [address] [place] [address] [facility] Start: 08-15-2021 Prostate specific antigen measurement Prostate Specific Antigen (PSA) Screening or Monitoring [facility]NG[facility] Start: 06-03-2021 End: 06-03-2021 Patient encounter procedure 06/03/2021 Appointment IP Unit [facility] [employer] Start: 05-01-2021 End: 05-01-2021 Patient encounter procedure 05/01/2021 Appointment Stress Lab [facility] Start: 04-30-2021 End: 04-30-2021 Patient encounter procedure [facility] Start: 01-23-2021 Influenza vaccination Flu vaccine (#1) [employer] Start: 08-22-2020 End: 08-22-2020 Office Visit 08/22/2020 Office Visit Urology Akira Ferrer MD [address] [facility], [address] [place], [place] [phone] [facility] Start: 07-26-2020 End: 07-26-2020 Office Visit 07/26/2020 Office Visit Endocrinology Octavio Lozada MD [address] [place] [address] [facility] [address] [facility] Start: 01-24-2020 Influenza vaccination Flu vaccine (#1) [employer] Phone: Start: 2019 Respiratory Syncytial Virus (RSV) or age 60 yrs+ (1 - 1-dose 60+ series) Respiratory Syncytial Virus (RSV) or age 60 yrs+ (1 - 1-dose 60+ series) [facility] [employer] Start: 2019 Respiratory Syncytial Virus (RSV) or age 60 yrs+ (1 - Risk 60-74 years 1-dose series) Respiratory Syncytial Virus (RSV) or age 60 yrs+ (1 - Risk 60-74 years 1-dose series) [facility] [employer] Start: 07-30-2009 Screening for malignant neoplasm of colon Colon cancer screen colonoscopy [employer] Phone: Start: 07-30-2009 Shingles Vaccine (1 of 2) Shingles Vaccine (1 of 2) [employer] Start: 07-30-2004 Screening for malignant neoplasm of colon [employer] Start: 1999 Diabetes screen Diabetes screen [employer] Phone: Start: 07-30-1978 DTaP/Tdap/Td vaccine (1 - Tdap) DTaP/Tdap/Td vaccine (1 - Tdap) [employer] Start: 07-30-1977 Diabetic microalbuminuria test Diabetic microalbuminuria test [employer] Start: 07-30-1977 Diabetic retinal exam Diabetic retinal exam [facility] Start: 07-30-1977 Glaucoma screening Diabetic retinal exam [facility] Start: 07-30-1977 Hepatitis C screening Hepatitis C screen [facility] Start: 07-30-1977 Urine screening for protein [facility] Start: 07-30-1974 HIV screening HIV screen [facility] Start: 1971 COVID-19 Vaccine (1) COVID-19 Vaccine (1) [facility] Start: 1971 Depression Screen Depression Screen [facility] Start: 07-30-1969 Diabetic foot examination Diabetic foot exam [facility] Start: 07-30-1969 Diabetic retinal exam Diabetic retinal exam [facility] Start: 07-30-1969 Hemoglobin A1c measurement A1C test (Diabetic or Prediabetic) [facility] Start: 07-30-1969 Lipid panel Lipid screen [facility] Start: 07-30-1965 Pneumococcal 0-64 years Vaccine (1 - PCV) Pneumococcal 0-64 years Vaccine (1 - PCV) [facility] Start: 07-30-1965 Pneumococcal 0-64 years Vaccine (1 of 2 - PCV) Pneumococcal 0-64 years Vaccine (1 of 2 - PCV) [facility] Start: 07-30-1965 Pneumococcal 0-64 years Vaccine (1 of 2 - PPSV23) Pneumococcal 0-64 years Vaccine (1 of 2 - PPSV23) [facility] Start: 07-30-1964 COVID-19 Vaccine (1) COVID-19 Vaccine (1) [facility] Start: 01-31-1960 COVID-19 Vaccine (#1) COVID-19 Vaccine (#1) [facility] [employer] Start: 1959 Creatinine measurement Creatinine monitoring [facility] Start: 1959 Hepatitis C screening Hepatitis C screen [facility] Start: 1959 Potassium monitoring Potassium monitoring [facility] [employer] Adult NIV/Positive A irway Pressure Adult NIV/Positive Airway Pressure Respiratory Care Routine Every 4hr until discontinued starting 02/25/2024 [facility] [employer] Comment on above: Every 4hr until discontinued starting End: 05-24-2022 [facility] [employer] Work Phone: Comment on above: Once for 1 Occurrences starting 05/24/20 until 05/24/2022 End: 04-24-2021 Baseline Diagnostic Sleep Study Baseline Diagnostic Sleep Study Sleep Center Routine One Time for 1 Occurrences starting 04/24/2021 until 04/24/2021 [employer] Phone: Comment on above: One Time for 1 Occurrences starting 05/2020 until 04/24/2021 Basic metabolic 2000 panel - Serum or Plasma Basic Metabolic Panel Lab Routine Daily until discontinued starting 05/28/2021, 5 completed [employer] Phone: Comment on above: Daily until discontinued starting 2021, 5 completed End: 02-29-2024 Basic Metabolic Panel w/ Reflex to MG Basic Metabolic Panel w/ Reflex to MG Lab Routine Daily for 5 Days starting 02/25/2024 until 02/29/2024, 3 completed [employer] Comment on above: Daily for 5 Days starting 02/25/2024 unt il 02/29/2024, 3 completed CARDIAC PHASE II CARDIAC PHASE I I Card Rehab Ordered: 10/03/2021 [employer] Comment on above: Ordered: 10/03/2021 CARDIAC PHASE II CARDIAC PHASE I I Card Rehab Ordered: 10/17/2021 [employer] Comment on above: Ordered: 10/17/2021 CARDIAC PHASE II CARDIAC PHASE I I Card Rehab Ordered: 10/28/2021 [employer] Comment on above: Ordered: 10/28/2021 CARDIAC PHASE II CARDIAC PHASE I I Card Rehab Ordered: 12/02/2021 [employer] Comment on above: Ordered: 12/02/2021 CARDIAC PHASE II CARDIAC PHASE I I Card Rehab Ordered: 12/05/2021 [employer] Comment on above: Ordered: 12/05/2021 CBC panel - Blood by Automated count CBC Lab Routine Daily until discontinued starting 05/28/2021, 5 completed [employer] Phone: Comment on above: Daily until discontinued starting 2021, 5 completed End: 02-29-2024 CBC W Auto Differential panel - Blood CBC auto differential Lab Routine Daily for 5 Days starting 02/25/2024 until 02/29/2024, 3 completed [employer] Comment on above: Daily for 5 Days starting 02/25/2024 unt il 02/29/2024, 3 completed Comprehensive metabo lic 2000 panel - Serum or Plasma [facility] CPAP CPAP Respiratory Care Routine Every 4hr until discontinued starting 05/30/2021 [employer] Phone: Comment on above: Every 4hr until discontinued starting End: 07-25-2020 Culture, Urine Culture, Urine Microbiology Routine BPH with obstruction/lower urinary tract symptoms Incomplete emptying of bladder 1 Occurrences starting 07/25/2020 until 07/25/2020 [employer] Phone: Comment on above: 1 Occurrences starting 07/25/2020 until 07/25/2020 Culture, Urine Culture, Urine Microbiology Routine BPH with obstruction/lower urinary tract symptoms Incomplete emptying of bladder 07/25/2020 3:30 PM EST [employer] Phone: End: 05-13-2022 Culture, Urine [facility] Phone: Comment on above: 1 Occurrences starting 05/13/2022 until 05/13/2022 End: 08-05-2022 Culture, Urine [employer] Work Phone: Comment on above: 1 Occurrences starting 08/05/2022 until 08/05/2022 End: 08-16-2024 Culture, Wound (with Gram Stain) [employer] Comment on above: One Time for 1 Occurrences starting 07/24 until 08/16/2024 EKG 12 Lead EKG 12 Lead ECG Routine 07/22/2024 9:31 PM EST [employer] Work Phone: Glucose [Mass/volume ] in Serum or Plasma [employer] Phone: Comment on above: 4X Daily (AC & HS) until discontinued st arting 05/27/2021 As Needed until disc ontinued starting 05/27/2021 Glucose [Mass/volume ] in Serum or Plasma [employer] Comment on above: 4X Daily (AC & HS) until discontinued st arting 02/24/2024 As Needed until disc ontinued starting 02/24/2024 End: 11-11-2024 Glucose [Mass/volume] in Serum or Plasma [employer] Phone: Comment on above: One Time for 1 Occurrences starting 10/24 until 11/11/2024 Home BIPAP or CPAP Home BIPAP or CPAP Respiratory Care Routine QHS until discontinued starting 02/25/2024 [employer] Phone: Comment on above: QHS until discontinued starting 02/25/20 24 L hrt cath w/njx l ventriculography img s&i LEFT HEART CATH Chest pain [employer] Microalbumin [Mass/v olume] in Urine [facility] End: 05-24-2022 MISCELLANEOUS TESTING [employer] Phone: Comment on above: Once for 1 Occurrences starting 05/24/20 22 until 05/24/2022 End: 10-20-2024 MR Foot - right WO contrast [employer] Comment on above: 1 Occurrences starting 10/20/2024 until 10/20/2024 Oxygen therapy [Mini mum Data Set] Initiate Oxygen Therapy Protocol Respiratory Care Routine Daily until discontinued starting 05/29/2021 [employer] Phone: Comment on above: Daily until discontinued starting 2021 Oxygen therapy [Mini mum Data Set] Initiate Oxygen Therapy Protocol Respiratory Care Routine As Needed until discontinued starting 07/15/2022 [employer] Phone: Comment on above: As Needed until discontinued starting Oxygen therapy [Mini mum Data Set] Initiate Oxygen Therapy Protocol Respiratory Care Routine As Needed until discontinued starting 11/03/2023 [employer] Comment on above: As Needed until discontinued starting Oxygen therapy [Mini mum Data Set] Initiate Oxygen Therapy Protocol Respiratory Care Routine As Needed until discontinued starting 12/21/2023 [employer] Comment on above: As Needed until discontinued starting Oxygen therapy [Mini mum Data Set] Initiate Oxygen Therapy Protocol Respiratory Care Routine As Needed until discontinued starting 12/21/2023 [employer] Comment on above: As Needed until discontinued starting Oxygen therapy [M[employer] mum Data Set] Initiate Oxygen Therapy Protocol Respiratory Care Routine Daily until discontinued starting 02/24/2024 [employer] Comment on above: Daily until discontinued starting 2023 Oxygen therapy [Mini mum Data Set] Initiate Oxygen Therapy Protocol Respiratory Care Routine Eschar of toe Gangrene of toe of both feet (HCC) Critical limb ischemia of both lower extremities (HCC) As Needed until discontinued starting 07/12/2024 [employer] Comment on above: As Needed until discontinued starting Oxygen therapy [Mini mum Data Set] Initiate Oxygen Therapy Protocol Respiratory Care Routine Eschar of toe Critical limb ischemia of both lower extremities (HCC) Gangrene of toe of both feet (HCC) As Needed until discontinued starting 08/16/2024 [employer] Comment on above: As Needed until discontinued starting Oxygen therapy [Mini mum Data Set] Initiate Oxygen Therapy Protocol Respiratory Care Routine Critical limb ischemia of both lower extremities As Needed until discontinued starting 09/06/2024 [employer] Comment on above: As Needed until discontinued starting Oxygen therapy [Mini mum Data Set] Initiate Oxygen Therapy Protocol Respiratory Care Routine As Needed until discontinued starting 10/04/2024 [employer] Comment on above: As Needed until discontinued starting Oxygen therapy [Mini mum Data Set] Initiate Oxygen Therapy Protocol Respiratory Care Routine Critical limb ischemia of both lower extremities (HCC) As Needed until discontinued starting 11/01/2024 [employer] Comment on above: As Needed until discontinued starting Oxygen therapy [Mini mum Data Set] Initiate Oxygen Therapy Protocol Respiratory Care Routine As Needed until discontinued starting 11/11/2024 [employer] Comment on above: As Needed until discontinued starting Oxygen therapy [Mini mum Data Set] Initiate Oxygen Therapy Protocol Respiratory Care Routine As Needed until discontinued starting 11/15/2024 [employer] Comment on above: As Needed until discontinued starting Oxygen therapy [Mini mum Data Set] Initiate Oxygen Therapy Protocol Respiratory Care Routine As Needed until discontinued starting 11/22/2024 [employer] Comment on above: As Needed until discontinued starting Oxygen therapy [Mini mum Data Set] Initiate Oxygen Therapy Protocol Respiratory Care Routine Critical limb ischemia of both lower extremities (HCC) Eschar of toe Gangrene of toe of both feet (HCC) As Needed until discontinued starting 12/06/2024 [employer] Comment on above: As Needed until discontinued starting Oxygen therapy [[facility] Data Set] Initiate Oxygen Therapy Protocol Respiratory Care Routine Critical limb ischemia of both lower extremities (HCC) Eschar of toe Gangrene of toe of both feet (HCC) As Needed until discontinued starting 12/27/2024 [employer] Comment on above: As Needed until discontinued starting Pathology study Surgical Patholo gy Lab Routine Acute osteomyelitis of right foot (HCC) Open wound of toe(s) Release Upon Ordering for 1 Occurrences starting 11/11/2024 [employer] Comment on above: Release Upon Ordering for 1 Occurrences starting 11/11/2024 End: 12-02-2023 Percutaneous coronary intervention [employer] Comment on above: One Time for 1 Occurrences starting 11/22 until 12/02/2023 Protime-INR Protime-INR Lab STAT As Needed until discontinued starting 05/29/2021 Contractually Phone: Comment on above: As Needed until discontinued starting End: 08-05-2023 PSA screening [employer] Comment on above: 1 Occurrences starting 08/05/2023 until 08/05/2023 PTH, Intact with Ion ized Calcium PTH, Intact with Ionized Calcium Lab Routine Acute on chronic diastolic (congestive) heart failure (HCC) ASHD (arteriosclerotic heart disease) S/P angioplasty with stent Essential hypertension Mixed hyperlipidemia PAD (peripheral artery disease) ([facility]) CHRIS (obstructive sleep apnea) Stage 3a chronic kidney disease ([facility]) Obesity, unspecified class, unspecified obesity type, unspecified whether serious comorbidity present 05/06/2024 12:46 PM EST [employer] End: 05-24-2022 Renin Arzeda Phone: Comment on above: Once for 1 Occurrences starting 05/24/20 until 05/24/2022 [facility] Immunizations Immunization Date Immunization Notes Care Provider Fa doron 11-12-2022 tetanus toxoid, redu beatriz diphtheria toxoid, and acellular pertussis vaccine, adsorbed Alice Cochran DPM Work Phone: [facility] 07-29-2019 pneumococcal polysaccharide vaccine, 23 valent Alice Cochran DPM Work Phone: [facility] 06-25-2013 pneumococcal conjuga te vaccine, 13 valent Alice Cochran DPM Work Phone: [facility] Payers Date Payer Category Payer Medicare [id number] 15 2024 Medicare 2022 Private Health Insurance [id number] 2022 Unknown [id number] [id number] 2022 Medicare [id number] 15 2020 Unknown [id number] 1.2.840.666930.1.13.239.2.7.3.505330.315 1959 Unknown [id number] 2.16.8 40.1.228214.3.579.2.174 1959 Unknown [id number] 2.16.84 0.1.748288.3.579.2.593 1959 Unknown [id number] 2.16.84 0.1.718006.3.579.2.593 1959 Unknown [id number] 2.16.84 0.1.288063.3.579.2.593 1959 Unknown [id number] 2.16.84 0.1.372019.3.579.2.593 - Unknown [id number] 2.16. 840.1.474667.3.579.2.196 1959 Unknown [id number] 2.16. 840.1.279975.3.579.2.175 1959 Unknown [id number] 2.16.8 40.1.367706.3.579.2.1259 1959 Unknown [id number] 2.16.84 0.1.562443.3.579.2.1259 1959 Unknown [id number] 2.16.84 0.1.548353.3.579.2.1259 1959 Unknown [id number] 2.16.84 0.1.826901.3.579.2.1259 1959 Unknown [id number] 2.16.84 0.1.172170.3.579.2.1259 1959 Unknown [id number] 2.16.84 0.1.834486.3.579.2.1259 1959 Unknown [id number] 2.16.84 0.1.522857.3.579.2.1259 1959 Unknown [id number] 2.16.8 40.1.580642.3.579.2.173 1959 Unknown [id number] 2.16.8 40.1.491439.3.579.2.173 1959 Unknown [id number] 2.16.8 40.1.816991.3.579.2.173 1959 Unknown [id number] 2.16.8 40.1.286571.3.579.2.173 1959 Unknown [id number] 2.16.8 40.1.378842.3.579.2.173 1959 Unknown [id number] 2.16.8 40.1.882585.3.579.2.173 1959 Unknown [id number] 2.16.8 40.1.670078.3.579.2.173 - Unknown [id number] 2.16.8 40.1.330956.3.579.2.173 1959 Unknown [id number] 2.16.8 40.1.166477.3.579.2.173 1959 Unknown [id number] 2.16.8 40.1.369239.3.579.2.173 1959 Unknown [id number] 2.16.8 40.1.030563.3.579.2.173 1959 Unknown [id number] 2.16.8 40.1.352037.3.579.2.173 1959 Unknown [id number] 2.16.8 40.1.378609.3.579.2.173 1959 Unknown [id number] 2.16.8 40.1.586528.3.579.2.173 1959 Unknown [id number] 2.16.8 40.1.828777.3.579.2.173 1959 Unknown [id number] 2.16.8 40.1.934381.3.579.2.173 1959 Unknown [id number] 2.16.8 40.1.383292.3.579.2.173 1959 Unknown [id number] 2.16.8 40.1.503725.3.579.2.173 1959 Unknown [id number] 2.16.8 40.1.750112.3.579.2.173 1959 Unknown [id number] 2.16.8 40.1.509042.3.579.2.173 1959 Unknown [id number] 2.16.8 40.1.026777.3.579.2.173 1959 Unknown [id number] 2.16.8 40.1.725360.3.579.2.173 1959 Unknown [id number] 2.16.8 40.1.891842.3.579.2.173 1959 Unknown [id number] 2.16.8 40.1.166132.3.579.2.173 1959 Unknown [id number] 2.16.8 40.1.918086.3.579.2.173 1959 Unknown [id number] 2.16.8 40.1.597625.3.579.2.173 1959 Unknown [id number] 2.16.8 40.1.784423.3.579.2.173 1959 Unknown [id number] 2.16.8 40.1.468584.3.579.2.173 1959 Unknown [id number] 2.16.8 40.1.492958.3.579.2.173 1959 Unknown [id number] 2.16.8 40.1.069810.3.579.2.173 1959 Unknown [id number] 2.16.8 40.1.537274.3.579.2.173 1959 Unknown [id number] 2.16.8 40.1.201932.3.579.2.173 1959 Unknown [id number] 2.16.8 40.1.933310.3.579.2.173 1959 Unknown [id number] 2.16.8 40.1.988088.3.579.2.173 1959 Unknown [id number] 2.16.8 40.1.141990.3.579.2.173 1959 Unknown [id number] 2.16.8 40.1.195613.3.579.2.173 1959 Unknown [id number] 2.16.8 40.1.210878.3.579.2.173 1959 Unknown [id number] 2.16.8 40.1.531033.3.579.2.173 1959 Unknown [id number] 2.16.8 40.1.416401.3.579.2.173 1959 Unknown [id number] 2.16.8 40.1.518763.3.579.2.173 1959 Self-pay [id number] 1959 Unknown [id number] 1.2.840.506041.1.13.239.2.7.3.992877.315 Unknown [id number] 2.16.8 40.1.891781.3.579.2.531 Unknown [id number] 2.16.8 40.1.843334.3.579.2.531 Social History Date Type Detail Facility Start: 07-25-2020 End: 01-02-2022 Tobacco smoking status [facility] Never smoker Contractually Phone: Start: 07-25-2020 End: 01-02-2022 Tobacco use and exposure Never used Contractually Phone: Start: 07-25-2020 End: 12-27-2024 Alcohol intake Lifetime non-drinker (finding) Contractually Phone: Start: 07-25-2020 History SDOH Alcohol Frequency 1 Contractually Phone: Start: 1960 Sex Assigned At Not on file [employer] Phone: Start: 08-30-2021 End: 07-01-2022 Exposure to SARS-CoV-2 (event) Not sure [employer] Start: 1960 Sex Assigned At Male F [facility] Start: 07-25-2020 End: 12-27-2024 Sex Assigned At Arzeda Phone: Start: 07-25-2020 End: 12-27-2024 History of Social function Arzeda Phone: How often to you hav e a drink containing alcohol? Never [employer]zeda Phone: Average Number of Drinks Not on file [employer] Start: 07-05-2020 End: 07-12-2024 Sex Male (finding) [facility] Medical Equipment Procedure Code Equipment Code Equipment Origin al Text Equipment Identifier Dates [id number] Start: 05-30-2020 USE TO INJECT INSULIN TWICE DAILY DIRECTED [id number] Start: 07-02-2020 Pen Needle, Diab etic (Bd [...] EDT Wound Management Patient Discharge Instructions CALL [phone] for questions regarding care of your wounds. [...] TPP 04/12/2025 2:30 PM [facility]yer [facility] 04/27/2025 1:40 PM Alma Kan MD TIFF CARD [facility]PP 07/12/2025 1:00 PM [facility] MED MGMT [place] 10/09/2025 1:00 PM Arabella Dyer PA-C [facility] Your wound care supplies were ordered from [facility], unless otherwise stated. If you do not receive them in 3 days call them at . SURVEY: You may be receiving a survey from [employer] regarding your visit today. Please complete the [...] the hospital. documented in this encounter [facility] 12-27-2024 History of Present illness Narrative Diabetic [...] Medical History: Diagnosis Date Cerebrovascular accident (CVA) ([facility]) 2019 CHF (congestive heart failure) ([facility]) Chronic kidney failure, stage 3 (moderate) ([facility]) Chronic pain COVID-19 06/05/2021 Critical limb ischemia of both lower extremities ([facility]) 02/24/2024 Essential hypertension H/O heart artery stent USP (current) use of insulin ([facility]) Lymphedema Obstructive sleep apnea on CPAP Type 2 diabetes mellitus without complication (HCC) Type 2 diabetes mellitus without complication ([facility]) Past Surgical History: Procedure Laterality Date ANGIOPLASTY 06/03/2021 cardiac PCI CARDIAC CATHETERIZATION 05/29/2021 Dr Mars/[facility] [place]/right radial-Severe three vessel coronary artery disease involving [...] angiography performed by Tigist Correa MD at [facility] Cardiac Cath/IR INVASIVE VASCULAR N/A 03/08/2024 Angiography lower ext bilat performed by Floyd Vee MD at [facility] CARDIAC CATH/IR LAB INVASIVE VASCULAR N/A 03/08/2024 Angioplasty common iliac artery performed by Floyd Vee MD at [facility] CARDIAC CATH/IR LAB LASER OF PROSTATE W/ GREEN LIGHT PVP 07/15/2022 CYSTOSCOPY TRANSURETHRAL RESECTION PROSTATE LASER-PVP GREENLIGHT- Dr. Ferrer LYMPH NODE DISSECTION Right 1967 TOE AMPUTATION Right 11/11/2024 TOE AMPUTATION-big toe right, flap closure of right foot performed by Quincy Penn DPM at [facility] OR TURP N/A 07/15/2022 CYSTOSCOPY TRANSURETHRAL RESECTION PROSTATE LASER-PVP GREENLIGHT performed by Akira Ferrer MD at [facility] OR Allergies Allergen Reactions Azithromycin Dizziness or [...] NEEDLE PAULINA U/F 32G X 4 MM [facility], USE ONE TO INJECT INSULIN FOUR TIMES A DAY 25, Disp: , Rfl: losartan (COZAAR) 25 MG tablet, Take 1 tablet by mouth daily, Disp: , Rfl: pantoprazole (PROTONIX) 40 MG tablet, Take 1 tablet by mouth daily, Disp: , Rfl: Continuous Glucose Sensor (FREESTYLE SARMAD 3 SENSOR) [facility], , Disp: , Rfl: spironolactone (ALDACTONE) 50 [...] 12/27/2024 10:56 AM documented in this encounter [facility] 12-06-2024 Hospital Discharge instructions Rosi Campbell RN - 12/06/2024 12:23 PM EDT Wound Management Patient Discharge Instructions CALL [phone] for questions regarding care of your wounds. [...] Center 12/27/2024 10:30 AM Quincy Penn DPM [facility] WND [place] 03/15/2025 1:30 PM Floyd Vee MD [facility] VASC TPP 04/12/2025 2:30 PM Arab[facility]yer [facility] 04/27/2025 1:40 PM Alma Kan MD TIF CARD [facility] 07/12/2025 1:00 PM [facility] [place] 10/09/2025 1:00 PM Arabella Dyer PA-C [facility] TPP Your wound care supplies were ordered from [facility], unless otherwise stated. If you do not receive them in 3 days call them at . SURVEY: You may be receiving a survey from [facility] regarding your visit today. Please complete the [...] for the hospital. documented in this encounter [facility] 12-06-2024 History of Present illness Narrative Diabetic [...] or education Yes documented in this encounter [facility] 11-22-2024 Hospital Discharge instructions Rosi Campbell RN - 11/22/2024 11:22 AM EDT Wound Management Patient Discharge Instructions CALL [phone] for questions regarding care of your wounds. [...] 12:00 PM Quincy Penn DPM MTHZ WND [place] 03/15/2025 1:30 PM Floyd Vee MD TIF VASC [facility]PP 04/12/2025 2:30 PM Arabella Dyer PA-C TIFF UROLOGY [facility] 04/27/2025 1:40 PM Amla Kan MD TIFF CARD [facility] 07/12/2025 1:00 PM [facility] MED MGMT [place] 10/09/2025 1:00 PM Arabella Dyer PA-C TIF UROLOGY TPP Your wound care supplies were ordered from [facility], unless otherwise stated. If you do not receive them in 3 days call them at . SURVEY: You may be receiving a survey from [facility] regarding your visit today. Please complete the [...] the hospital. documented in this encounter [facility] 11-22-2024 History of Present illness Narrative Diabetic [...] Medical History: Diagnosis Date Cerebrovascular accident (CVA) ([facility]) 2019 CHF (congestive heart failure) ([facility]) Chronic kidney failure, stage 3 (moderate) ([facility]) Chronic pain COVID-19 06/05/2021 Critical limb ischemia of both lower extremities ([facility]) 02/24/2024 Essential hypertension H/O heart artery stent USP (current) use of insulin ([facility]) Lymphedema Obstructive sleep apnea on CPAP Type 2 diabetes mellitus without complication (HCC) Type 2 diabetes mellitus without complication ([facility]) Past Surgical History: Procedure Laterality Date ANGIOPLASTY 06/03/2021 cardiac PCI CARDIAC CATHETERIZATION 05/29/2021 Dr Mars/[facility]/right radial-Severe three vessel coronary artery disease [...] angiography performed by Tigist Correa MD at [facility] Cardiac Cath/IR INVASIVE VASCULAR N/A 03/08/2024 Angiography lower ext bilat performed by Floyd Vee MD at [facility] CARDIAC CATH/IR LAB INVASIVE VASCULAR N/A 03/08/2024 Angioplasty common iliac artery performed by Floyd Vee MD at [facility] CARDIAC CATH/IR LAB LASER OF PROSTATE W/ GREEN LIGHT PVP 07/15/2022 CYSTOSCOPY TRANSURETHRAL RESECTION PROSTATE LASER-PVP GREENLIGHT- Dr. Ferrer LYMPH NODE DISSECTION Right 1967 TOE AMPUTATION Right 11/11/2024 TOE AMPUTATION-big toe right, flap closure of right foot performed by Quincy Penn DPM at [facility] OR TURP N/A 07/15/2022 CYSTOSCOPY TRANSURETHRAL RESECTION PROSTATE LASER-PVP GREENLIGHT performed by Akira Ferrer MD at [facility] OR ROS: neg. Constitutional +BM / +void [...] 11:27 AM documented in this encounter [facility] 11-15-2024 Hospital Discharge instructions Rosi Campbell RN - 11/15/2024 9:05 AM EDT Wound Management Patient Discharge Instructions CALL [phone] for questions regarding care of your wounds. [...] Time Provider Department Center 11/16/2024 1:00 PM [facility] [place] 11/22/2024 11:00 AM Quincy Penn DPM [facility] WND [place] 03/15/2025 1:30 PM Floyd Vee MD [facility] 04/12/2025 2:30 PM Arabella Dyer [facility] 04/27/2025 1:[address] [facility] 10/09/2025 1:00 PM Arabella Dyer PA-C [facility] Your wound care supplies were ordered from [facility], unless otherwise stated. If you do not receive them in 3 days call them at . SURVEY: You may be receiving a survey from [employer] regarding your visit today. Please complete the [...] the hospital. documented in this encounter [facility] 11-15-2024 History of Present illness Narrative POV #1 POD # 4 MRR: hallux amputation & advancement flap N: constipated ROS: +appetite / -BM / +void NEG. 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 [place]/right radial-Severe three vessel coronary artery disease involving [...] angiography performed by Tigist Correa MD at [facility] Cardiac Cath/IR INVASIVE VASCULAR N/A 03/08/2024 Angiography lower ext bilat performed by Floyd Vee MD at [facility] CARDIAC CATH/IR LAB INVASIVE VASCULAR N/A 03/08/2024 Angioplasty common iliac artery performed by Floyd Vee MD at [facility] CARDIAC CATH/IR LAB LASER OF PROSTATE W/ GREEN LIGHT PVP 07/15/2022 CYSTOSCOPY TRANSURETHRAL RESECTION PROSTATE LASER-PVP GREENLIGHT- Dr. Ferrer LYMPH NODE DISSECTION Right 1967 TURP N/A 07/15/2022 CYSTOSCOPY TRANSURETHRAL RESECTION PROSTATE LASER-PVP GREENLIGHT performed by Akira Ferrer MD at [facility] OR PE: VSS, Afebrile, NAD, A&O x [...] 9:20 AM documented in this encounter [facility] 11-11-2024 History of Present illness Narrative Discharge [...] with patient. documented in this encounter [facility] 11-11-2024 Hospital Discharge instructions Yumiko Toussaint RN [...] op period. documented in this encounter [facility] 11-09-2024 History of Present illness Narrative Images [...] Alice Cochran DPM documented in this encounter [facility] 11-01-2024 Hospital Discharge instructions Rosi Campbell RN - 11/01/2024 11:58 AM EDT Wound Management Patient Discharge Instructions CALL [phone] for questions regarding care of your wounds. 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 Return to clinic Thursday11/22/24 at 11:00AM Next appointment: Future Appointments Date Time Provider Department Center 11/16/2024 1:00 PM [facility] MED MGMT [place] 11/22/2024 11:00 AM Quincy Penn DPM [facility] WND [place] 03/15/2025 1:30 PM Floyd Vee MD [facility] VASC [facility] 04/12/2025 2:30 PM Arabella Dyer PA-C [facility] 04/27/2025 1:40 PM Alma Kan MD [facility] CARD TPP 10/09/2025 1:00 PM Arabella Dyer PA-C [facility]OLOG[facility] Your wound care supplies were ordered from [facility], unless otherwise stated. If you do not receive them in 3 days call them at . SURVEY: You may be receiving a survey from [employer] regarding your visit today. Please complete the [...] for the hospital. documented in this encounter [facility] 11-01-2024 History of Present illness Narrative Diabetic [...] or education Yes documented in this encounter [facility] 10-04-2024 Hospital Discharge instructions Rosi Campbell RN - 10/04/2024 11:30 AM EDT Wound Management Patient Discharge Instructions CALL [phone] for questions regarding care of your wounds. [...] prior to next appointment Call to schedule [phone] Return to clinic Thursday11/01/24 at 11:30pm SURVEY: [facility]. Please complete the [...] for the hospital. documented in this encounter [facility] 10-04-2024 History of Present illness Narrative Diabetic Quality Measure Benchmarks: FSBS: RESULT 240 0800 Hemoglobin A1c [id number] and is < 8%= YES Lab Results Component Value Date LABA1C 7.7 (H) 02/24/2024 LDL is <100 Yes Blood Pressure is under < 140/90 Yes Tobacco Non use Yes Aspirin Use/blood thinner Yes Information sent to PCP Yes Instructions given to Patient regarding follow up and or education Yes documented in this encounter [facility] 09-06-2024 Hospital Discharge instructions Rosi Campbell RN - 09/06/2024 11:54 AM EDT Wound Management Patient Discharge Instructions CALL [phone] for questions regarding care of your wounds. [...] Center 09/14/2024 12:[address] [facility] 10/04/2024 11:00 AM Quincy Penn DPM MTHZ WND [place] 10/05/2024 1:00 PM Arabella Dyer PA-C TIFF UROLOGY [facility] 10/12/2024 11:00 AM [facility] MED MGMT [place] 10/20/2024 2:00 PM Lev Duarte, PYTHON ENGINEER - HYDRAULIC PRESS OPERATOR TIFF CARD [facility] SURVEY: You may be receiving a [...] for the hospital. documented in this encounter [facility] 09-06-2024 History of Present illness Narrative Diabetic [...] or education Yes documented in this encounter [facility] 08-16-2024 Hospital Discharge instructions Rosi Campbell RN - 08/16/2024 12:04 PM EDT Wound Management Patient Discharge Instructions CALL [phone] for questions regarding care of your wounds. [...] 10:45 AM Arabella Dyer PA-C TIFF UROLOGY [facility] 09/06/2024 11:30 AM Quincy Penn, DPM MTH[facility] WND [place] 09/14/2024 12:45 PM Floyd Vee MD TIFF VASC [facility] 09/19/2024 2:00 PM Lev Duarte, PYTHON ENGINEER - HYDRAULIC PRESS OPERATOR [facility] 10/12/2024 11:00 AM [facility]ART[facility]INIC [facility] [place] SURVEY: You [facility] be receiving a [facility] today. Please complete the [...] the hospital. documented in this encounter [facility] 08-16-2024 History of Present illness Narrative Diabetic [...] Needs- BEE- 2219 kcal Total Calorie Needs- 8058-2740 (18-23 kcal/kg) Total Protein Needs- 97-113 (1.2-1.4 g/kg) Patient Diagnosis Date Cerebrovascular accident (CVA) ([facility]) 2019 CHF (congestive heart failure) ([facility]) Chronic kidney failure, stage 3 (moderate) ([facility]) Chronic pain COVID-19 06/05/2021 Critical limb ischemia of both lower extremities ([facility]) 02/24/2024 Essential hypertension H/O heart artery stent 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 Nutrition Therapy Recommendations- Recommend obtain current vitamin D status and supplement as indicated. Follow-up- quarterly Electronically signed by Dann Velázquez RDN, LD 08/16/2024, 12:46 PM PQRS Measure: #1(Diabetes: Hemoglobin A1C Poor Control) - no PQRS Measure #130 (Documentation of Current Medications in Medical Record) - yes documented in this encounter [facility] 07-29-2024 Note Admission Informatio n Patient: Piotr Kerr : 1960 Date of Admission: 07/23/2024 09:47:21 Date of Discharge: Code Status: Full Resuscitation PCP: Jorge Pritchett DO Consult: Bita GREENBERG, Werner Rodriguez; Autumn Dukes DPM; Harrison Beltran DO Follow Up with Provider With When Contact Information Akira Ferrer 08/03/2024 09:45 AM EDT [address] [facility], [address] [place] [address] Business (1) Additional Instructions: Appointment Scheduled Harrison Beltran 07/29/2024 02:00 PM EST [address] [place], [place] Additional Instructions: Appointment Scheduled Jorge Pritchett DO Within 1 week [address] [place] [address]- Additional Instructions: Jorge Pritchett In 0 days [address] [facility] [place] [address]- Business (1) Additional Instructions: 63-year-old male with past medical history type 2 diabetes, CVA, CAD status post stent, CHRIS, CHF unspecified, CKD who presented to outside facility for feeling unwell was found to be in acute renal failure and was transferred to [facility] Assessment #Dizziness/tinnitus, improving # Constipation likely secondary [...] coordination is 35minutes. Medications New Medications [facility] [address], [place] [id number], [phone] calcitriol (calcitriol 0.5 mcg oral capsule) 0.5 Microgram Oral (given by mouth) every day for 30 Days. Refills: 0. Last Dose: meclizine (meclizine 25 mg oral tablet) 12.5 Milligram Oral (given by mouth) 2 times a day for 14 Days. Refills: 0. Last Dose: Medications That Were Updated - Follow Current Instructions [facility] [address], [place] [id number], [phone] Current: furosemide (Lasix 40 mg oral tablet) [...] Tabs Sublingual (dissolve (more content not included)... [facility] 07-27-2024 Note Chief Complaint Chronic dizziness and tinnitus Reason for Consultation Evaluate for recurrent dizziness in the setting of chronic renal disease History of Present Illness This is a 63-year-old gentleman with a history of diabetes with associated neuropathy, chronic renal insufficiency followed by Dr. Beltran transferred to [facility] on July 23 because of worsening renal presented to the [facility] in [place] and was weak that labs included a BUN of 127 and a creatinine of 4.8. 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 Neurological opinion regarding his dizziness was requested on July 23 BUN 120 creatinine 4.11. Neurological opinion regarding his dizziness was requested. While living in [place], he did have a right CVA, resulting [...] Following his stroke he did move to [facility] Review of Systems Constitutional: [No fevers, chills, [...] Dose: 07/27/24 15:00:00 EST, Dispense From Location: [facility], 07/27/24 15:00:00 EST Problem List/Past Medical History [...] PRN heparin, 5000 units= 1 mL, Subcutaneous, d2ct-Zcyeozmy Times hydrocodone-acetaminophen 5 mg-325 mg oral tablet, [...] 0.9% injectable so (more content not included)... [facility] 07-25-2024 Note Reason for Consultat ion right foot ulcer, diabetic History of Present Illness 63-year-old male with type 2 diabetes and neuropathy seen at [facility] for diabetic foot ulcer on the [...] Dose: 07/26/24 9:00:00 EST, Dispense From Location: [facility] [employer], 07/25/24 12:23:00 EST Surgical Shoe/Cast Shoe 1) [...] Ongoing No qualifyin (more content not included)... [facility] 07-23-2024 Note Reason for Consultat ion severe NEO History of Present Illness 63-year-old male who is well known to the under-signed, with past medical history of advanced renal disease stage IV, type 2 diabetes, CVA, CAD status post stent, CHRIS, CHF unspecified who presented to [facility] for feeling unwell was found to be in acute renal failure, with much worse advanced renal disease. The ED physician noted me and I recommended he be transferred to [facility] for possible PHARMACEUTICAL SALES initiation. Most recent labs showed no leukocytosis [...] Dose: 07/24/24 9:00:00 EST, Dispense From Location: [employer], 07/23/24 23:40:00 EST Sodium Chloride 0.9% intravenous [...] PRN heparin, 5000 units= 1 mL, Subcutaneous, a3ak-Mtjgjqwc Times hydrocodone-acetaminophen 5 mg-325 mg oral tablet, 1 tabs, Oral, q4hr, PRN insulin aspart, see comments, Subcutaneous, ACHS insulin glargine, 50 units, Subcutaneous, Daily naloxone, 0.4 mg= 1 mL, IV Push, q2min, PRN Normal Saline Flush 0.9% injectable solution, 10 mL, IV Push, As Indicated, PRN Normal Saline Flush 0.9% injectable solution, 10 mL, IV Push, BID nys (more content not included)... [facility] 07-23-2024 Note Assessment/Plan 63-year-old male with past medical history type 2 diabetes, CVA, CAD status post stent, CHRIS, CHF unspecified, CKD who presented to outside facility for feeling unwell was found to be in acute renal failure and was transferred to [facility] #Acute renal failure #Uremia #Lactic acidosis #Hypocalcemia [...] acute renal failure and was transferred to [facility]. Patient follows with Dr. Thomas. Most recent [...] As Indicated, PRN heparin, 5000 units, Subcutaneous, h6kj-Xibznftq Times hydrocodone-acetaminophen 5 mg-325 mg oral tablet, [...] by Yoel Du DO 07/23/24 11:07 EST [facility] 07-12-2024 Evaluation note Diagnosis Onset Date [...] with hyperglycemia acute September 21 025 2:38pm [facility] Work Phone: 1(731) 894-676402-18-2025 Hospital Discharge instructions* Discharge Instructions* Rosi Campbell RN - 07/12/2024 11:04 AM EST Wound Management Patient Discharge Instructions CALL [phone] for questions regarding care of your wounds. [...] AM [facility] [place] 08/02/2024 11:30 AM Quincy Penn DPM [facility] WND [place] 08/16/2024 2:00 PM Alma Kan MD TIFF CARD [facility] 09/14/2024 12:45 PM Floyd Vee MD [facility]: You may be receiving a survey from [facility] your visit today. Please complete the [...] fee for the hospital. [facility] History of Present illness Narrative* Rosi Campbell [...] and or education Yes [facility] History of Present illness Narrative* Alice Cochran [...] understanding. Alice Cochran DPM documented in this [facility]01-02-2025 Instructions* Patient Instructions* Alice Cochran DPM - 05/26/2024 3:15 PM EST As noted documented in this [facility]12-19-2024 Evaluation note* Diagnosis Onset Date Resolution Status Admit Date Cardiomyopathy, ischemic acute May 12, 2024 11:34am Cerebral atherosclerosis acute May 12, 2024 11:34am Chronic heart failure with preserved ejection fraction (HFpEF) acute May 12 11:34am Chronic venous insufficiency of lower extremity acute May 12 11:34am Diabetes mellitus with perip heral angiopathy acute May 12 11:34am Hypercholesterolemia acute [facility] 2023 11:34am Primary hypertension acute [facility] 2023 11:34am Stage 3b chronic kidney disease acut e May 12, 2024 11:34am Type 2 diabetes mellitus wit h hyperglycemia acute May 12 11:34am [facility] Work Phone: [phone] [phone] History of Present illness Narrative* Alice Cochran [...] understanding. 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 For pain: Tylenol can be taken every 6 hours. Maximum dose of tylenol in a 24 hour period is 4000mg. You can also take your previously prescribed codeine as needed every 6-8 hours as needed for break through pain not controlled by the tylenol. Please call your nursing aide on Thursday to schedule follow up appointment for re- wrapping of the leg. Return to ED for re-evaluation if you develop fevers, increasing redness, increasing swelling, numbness, tingling, weakness or pain. [facility] History of Present illness Narrative* Froy Reagan RN - 02/27/2024 4:15 PM EDT Discharge education and instructions reviewed with the patient and his spouse. * Froy Reagan RN - 02/27/2024 3:47 PM EDT The patients preferred pharmacy is not open on the weekends, therefore antibiotic was called into [facility] in [place] per patient request. * Jorge Crum - [...] Assessment: (P) Calm Intervention: (P) Discussed belief system/hinduism practices/avis, Discussed illness injury and it s [...] Procedure Component Value Units Date/Time Culture, Urine [[id number]] Collected: 02/24/24 1252 Order Status: Completed Specimen: [...] home CPAP machine Nutrition status: Obesity, non-morbid Rn Transition consult appreciated Hospital Prophylaxis: DVT: Lovenox Stress [...] 02/27/2024 8:17 AM EDT Physical Therapy Facility/Department: [facility] MED SURG Daily Treatment Note NAME: [...] Dipti Adams PTA * Ruth Alcaraz [facility] - 02/26/2024 2:01 PM EDT Images from the original note were not included. [facility] Department of Pharmacy Pharmacy Renal Adjustment Note [...] CrCl <50mL/min Thank you, Ruth Alcaraz [facility],02/26/2024,2:00 PM * Dipti Adams PTA - 02/26/2024 12:24 PM EDT Physical Therapy Facility/Department: [facility] MED SURG Daily Treatment Note NAME: [...] 16 Minutes Dipti Adams PTA * Jorge Crum - 02/26/2024 11:37 AM EDT Spiritual Services [...] Assessment: (P) Calm Intervention: (P) Discussed belief system/hinduism practices/avis, Discussed illness injury and it s impact Outcome: (P) Engaged in conversation, Encouraged * Shalini Del Valle PTA - 02/26/2024 8:35 AM EDT Physical Therapy Facility/Department: [facility] MED SURG Daily Treatment Note NAME: [...] Procedure Component Value Units Date/Time Culture, Urine [[id number]] Collected: 02/24/24 1252 Order Status: Completed Specimen: [...] home CPAP machine Nutrition status: Obesity, non-morbid Rn Transition consult appreciated Hospital Prophylaxis: DVT: Lovenox Stress [...] and assessment were completed at this time. Driving Teacher walked patient through the medications that would [...] Assessment: (P) Calm Intervention: (P) Discussed belief system/hinduism practices/avis, Discussed illness injury and it s impact Outcome: (P) Encouraged, Engaged in conversation * Yumiko Montes PTA - 02/25/2024 10:21 AM EDT Physical Therapy Facility/Department: [facility] MED SURG Daily Treatment Note NAME: [...] loss Fluid Accumulation: Moderate to Severe Extremities Analysis Reporting Developer Strength: Not Performed Nutrition Assessment: Altered nutrition [...] Na Anthropometric Measures: Height: 182.9 cm (6') [place] Body Weight (IBW): 178 lbs (81 kg) [...] Used for Energy Requirements: Current Energy (kcal/day): 8597-8494 (15-18) Weight Used for Protein Requirements: [place] Protein (g/day): 97-113 (1.2-1.4) Method Used for [...] this time Dann Velázquez RD, LD Contact: [phone] * Fred Villegas MD - 02/25/2024 7:55 [...] Procedure Component Value Units Date/Time Culture, Urine [[id number]] Collected: 02/24/24 1252 Order Status: Sent Specimen: [...] in home CPAP Nutrition status: Obesity, non-morbid Rn Transition consult appreciated Hospital Prophylaxis: DVT: Lovenox Stress [...] Albert RN - 02/24/2024 11:45 PM EDT Driving Teacher rewraped patient's legs and put the bed power system operator on the bed. Patient also requested to use the hospital cpap machine as he does not have his from home. New order received. Patient is aware respiratory will be in to set it up. * Paradise Albert RN - 02/24/2024 7:15 PM EDT Vitals and assessment were completed at this time. Driving Teacher walked patient through the medications that would be administered tonight and encouraged patient to ask questions about the medications and therapies. Driving Teacher redressed patient's BLL kirit wraps. Call light and bedside table remain within reach. Patient denies needs at this time. Care ongoing. * Yumiko Sarabia - 02/24/2024 5:37 PM EDT Driving Teacher called to bring patients home medication * [...] or converted to UFH per the approved [facility] protocol and table as identified below. Piotr [...] room 319 from Er. Report received from ISOTOPE TECHNOLOGIST. VS and assessment completed. Patient denies pain. Plan of care gone over with patient and spouse. Compression kirit wraps place on bilateral legs. Pictures taken of BLE and placed in charts. documented in this [facility] History of Present illness Narrative* Alice Cosby [...] understanding. Alice Cochran DPM documented in this encounterSaint [id number] Instructions* Patient Instructions* Alice Cochran DPM - 02/17/2024 9:45 AM EDT Continue wound care measures documented in this encounterSaint [facility]–[id number] History of Present illness Narrative* Alice Cochran [...] understanding. Alice Cochran DPM documented in this [facility]09-13-2024 Instructions* Patient Instructions* Alice Cochran DPM - 02/05/2024 10:00 AM EDT As noted documented in this [facility]07-29-2024 History of Present illness Narrative* Nesha Campoverde RN - 12/21/2023 3:58 PM EDT All discharge instructions reviewed, questions answered, paper signed and given copy. Patient discharged per wheelchair with and belongings. * Nesha Campoverde RN - 12/21/2023 1:05 PM EDT Care received from Juan C Mayen rn and Bettina Madrigal rn Patient received post cath to [facility]. Assessment obtained. Right radial site with vascband intact. Nohematoma noted. Restrictions reviewed with patient and . Patient without complaints. and son and bedside. * Nesha Campoverde RN - 12/21/2023 8:21 AM EDT Patient admitted, consent signed and questions answered. Patient ready for procedure. Call light toreach with side rails up 2 of 2. Right wrist and B/L groin clipped with global technical writer and Juan C Mayen rn present. and son at bedside with patient. History and physical to be updated. * Nesha Campoverde RN - 12/18/2023 10:58 AM EDT Attempted pre-procedure call. VM message left for patient to return call. [phone] documented in this encounterB[facility]07-29-[facility]24 Hospital Discharge instructions* Discharge Instructions* Nesha Campoverde [...] taking more than one drug. This includes exoi-kci-odtwcuz medicine and herb or dietary supplements. Plan [...] unless otherwise instructed documented in this encounterB[facility]06-14-2024 History of Present illness Narrative* Yumiko Montes PTA - 11/06/2023 12:15 PM EDT [facility] Outpatient Physical Therapy Lymphedema Treatment Date: 11/06/2023 Patient: Piotr Kerr : 1960 CSN #: [id number] Referring Physician: Referring Provider (secondary): Dr. Lucius MD Diagnosis: Lymphedema, I89.0; CHF I50.32; Treatment Diagnosis: B LE lymphedema PT Insurance Information: [employer] [place] Total # of Visits Approved: 12 Total [...] functional strengthening for improved mobility and endurance.-MET Skiver Machine Operator Goals Time Frame for Assisted Goals : 6 weeks Assisted Goal 1: Patient will be safe and independent with his lymphedema management. Assisted Goal 2: Patient will demonstrate a 1-2cm decrease in B LE girth measurements in order to improve ambulation tolerance.-progressing Assisted Goal 3: Patient will be fitted for an at home pump in order to be independent with his lymphedema management.-MET Assisted Goal 4: Patient to have improved B LE strength >/=4/5 grossly all major joints and planes for improved functional strength. Minutes Tracking: Time In: 1215 Time Out: 1315 Minutes: 60 Yumiko Montes PTA, Date: 11/06/2023 documented in this encounterB[facility]06-11-2024 History of Present illness Narrative* Kim Vázquez [...] morning of surgery. Awaiting to here from programmer numerical control when to hold Plavix and ASA. documented in this encounterBON [facility]05-30-2024 History of Present illness Narrative* Yumiko Montes PTA - 10/22/2023 11:00 AM EDT [facility] Outpatient Physical Therapy Lymphedema Treatment Date: 10/22/2023 Patient: Piotr Kerr : 1960 CSN #: [id number] Referring Physician: Referring Provider (secondary): Dr. Lucius MD Diagnosis: Lymphedema, I89.0; CHF I50.32; Treatment Diagnosis: B LE lymphedema PT Insurance Information: [employer] [place] Total # of Visits Approved: 12 Total [...] functional strengthening for improved mobility and endurance.-MET Skiver Machine Operator Goals Time Frame for Skiver Machine Operator Goals : 6 weeks Skiver Machine Operator Goal 1: Patient will be safe and independent with his lymphedema management. Assisted Goal 2: Patient will demonstrate a 1-2cm decrease in B LE girth measurements in order to improve ambulation tolerance. Skiver Machine Operator Goal 3: Patient will be fitted for an at home pump in order to be independent with his lymphedema management. Skiver Machine Operator Goal 4: Patient to have improved B LE strength >/=4/5 grossly all major joints and planes for improved functional strength. Minutes Tracking: Time In: 1116 Time Out: 1203 Minutes: 47 Yumiko Montes PTA, Date: 10/22/2023 documented in this encounterB[facility]12-20-2023 Evaluation note* Encounter Date Diagnosis Assessment Notes [...] Uncontrolled but will be better/safer addressed by Spray Dry Operator Apr, Pure hypercholestero lemia (ICD-10 - E78.00) Instructed on diet and exercise with continued statin therapy.Discussed the beneficial effects of lowering cholesterol in reducing the risk for cerebrovascular and cardiovascular disease. Apr, Obstructive sleep ap ellyn (ICD-10 - G47.33) This patient is aware of the benefits associated with CHRIS: With continued use, the patient reduces the risk for OR, CVA, HTN, cardiac dysrhythmias and sudden cardiac [...] CHRIS treatment. Apr, Hyperparathyroidism (ICD-10 - E21.3) Spray Dry Operator evaluating this for patient - elevated Ca and PTH - likely will require surgical treatment. - CKD complicates evaluation Apr, Hx of cerebral infar ction (ICD-10 - Z86.73) COntinue secondary prevention measures Instructed on stroke symptoms and to report to ER for any suspicious symptoms Apr, computer terminal operator (current) use of insulin (ICD-10 - Z79.4) Recommend CGM Apr, Other The patient is instructed on adequate control of hypertension and diabetes, if appropriate. They are also educated on the associated risks of NSAIDs and PPI use with kidney disease. They were instructed on adequate fluid balance and to avoid dehydration. [employer] Other 12-14-2023 Evaluation note* Encounter Date Diagnosis Assessment Notes Treatment Notes Treatment Clinical Notes Apr, Cardiomyopathy, ischemic (ICD-10 - I25.5) NM stress: inferolateral ischemia 06/2022 Echo: LVEF 55%, LVH, diastolic dysfunction Apr, Chronic diastolic heart failure (ICD-10 - I50.32) [employer] Other 12-03-2023 Evaluation note* Encounter Date Diagnosis Assessment Notes Treatment Notes Treatment Clinical Notes Apr, Type 2 diabetes mellitus with diabetic peripheral angiopathy without gangrene (ICD-10 - E11.51) [employer] Other 11-06-2023 Evaluation note* Encounter Date Diagnosis Assessment Notes Treatment Notes Treatment Clinical Notes Mar, Stage 3b chronic kidney disease (ICD-10 - N18.32) [facility] Other 09-20-2023 Evaluation note* Encounter Date Diagnosis [...] soapy water and rinse Scheduled to see Glass Deposition Tender Jan, Stage 3b chronic kid kana disease [...] DM and HTN Recommend regular appt w/ Glass Deposition Tender Jan, Essential hypertensi on (ICD-10 - I10) This patient is instructed to consume a healthy, low-fat, low-salt diet. They are also encouraged to continue exercise to achieve/maintain a normal BMI. Uncontrolled but medications adjusted by Spray Dry Operator - seeing again in 2 days - [...] use, the patient reduces the risk for OR, CVA, HTN, cardiac dysrhythmias and sudden cardiac [...] Hyperparathyroidism (ICD-10 - E21.3) Evaluation underway w/ Spray Dry Operator NM parathyroid scan and 24 hour urine for Ca pending Jan, Hx of cerebral infar ction (ICD-10 - Z86.73) No acute neurologic deficits. 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, computer terminal operator (current) use of insulin (ICD-10 - Z79.4) Jan, Subconjunctival hemorrhage of right eye (ICD-10 - H11.31) [facility] Other 08-15-2023 Evaluation note* Encounter Date Diagnosis Assessment Notes Treatment Notes Treatment Clinical Notes Dec, Essential hypertension (ICD-10 - I10) [facility] Other 07-27-2023 History of Present illness Narrative* Rashel Cárdenas, PT - 12/18/2022 1:45 PM EDT [facility] Outpatient Physical Therapy Daily Note Patient: Piotr Kerr : 1960 CSN #: [id number] Referring Physician: Jorge Pritchett DO Date: 12/18/2022 Diagnosis: M54.50 low back pain, R29.898 weakness Treatment Diagnosis: weakness Onset Date: 08/13/22 PT Insurance Information: [employer] [place] Total # of Visits Approved: 30 Per [...] order to improve functional strength---met 20 seconds Skiver Machine Operator Goals Time Frame for Assisted Goals : 6 weeks Skiver Machine Operator Goal 1: Pt will be safe and independent with his HEP Skiver Machine Operator Goal 2: Pt will increase L LE strength to >/=4-/5 and R LE strength to 4/5 in order toincrease ambulation tolerance-met (R LE: 4 to 4+/5; L LE: 4/5 grossly except ankle DF: 4-/5) Assisted Goal 3: Pt will be able to ambulate for 10 minutes with LRAD and no LOB with minimal fatigue in order to increase community ambulation-progressing (~5.5min max before fatigue/SOB requiring seated rest break) Assisted Goal 4: Pt will increase tinetti score to >/=20/28 in order to reduce fall risk Minutes Tracking: Time In: 1345 Time Out: 1444 Minutes: 59 Timed Code Treatment Minutes: 47 Minutes Rashel Cárdenas PT, DPT Date: 12/18/2022 documented in this encounterB[facility] History of Present illness Narrative* Rashel Cárdenas PT - 12/11/2022 12:30 PM EDT [facility] Outpatient Physical Therapy Daily Note Patient: Piotr Kerr : 1960 CSN #: [id number] Referring Physician: Jorge Pritchett DO Date: 12/11/2022 Diagnosis: M54.50 low back pain, R29.898 weakness Treatment Diagnosis: weakness Onset Date: 08/13/22 PT Insurance Information: [employer] Total # of Visits Approved: 30 Per [...] order to improve functional strength---met 20 seconds Assisted Goals Time Frame for Assisted Goals : 6 weeks Skiver Machine Operator Goal 1: Pt will be safe and independent with his HEP Skiver Machine Operator Goal 2: Pt will increase L LE strength to >/=4-/5 and R LE strength to 4/5 in order toincrease ambulation tolerance-met (R LE: 4 to 4+/5; L LE: 4/5 grossly except ankle DF: 4-/5) Skiver Machine Operator Goal 3: Pt will be able to ambulate for 10 minutes with LRAD and no LOB with minimal fatigue in order to increase community ambulation-progressing (~5.5min max before fatigue/SOB requiring seated rest break) Skiver Machine Operator Goal 4: Pt will increase tinetti score to >/=20/28 in order to reduce fall risk Minutes Tracking: Time In: 1230 Time Out: 1329 Minutes: 59 Timed Code Treatment Minutes: 44 Minutes Rashel Cárdenas PT, DPT Date: 12/11/2022 documented in this encounterB[facility] History of Present illness Narrative* Shirin Bajwa, DANCE MASTER - 12/03/2022 2:30 PM EDT [facility] Outpatient Physical Therapy Daily Note Patient: Piotr Kerr : 1960 CSN #: [id number] Referring Physician: Jorge Pritchett DO Date: 12/03/2022 Treatment Diagnosis: weakness Onset Date: 08/13/22 PT Insurance Information: [employer] Total # of Visits Approved: 30 Per [...] order to improve functional strength---met 20 seconds Skiver Machine Operator Goals Time Frame for Skiver Machine Operator Goals : 6 weeks Assisted Goal 1: Pt will be safe and independent with his HEP Skiver Machine Operator Goal 2: Pt will increase L LE strength to >/=4-/5 and R LE strength to 4/5 in order toincrease ambulation tolerance-met (R LE: 4 to 4+/5; L LE: 4/5 grossly except ankle DF: 4-/5) Assisted Goal 3: Pt will be able to ambulate for 10 minutes with LRAD and no LOB with minimal fatigue in order to increase community ambulation-progressing (~5.5min max before fatigue/SOB requiring seated rest break) Skiver Machine Operator Goal 4: Pt will increase tinetti score to >/=20/28 in order to reduce fall risk Minutes Tracking: Time In: 1430 Time Out: 1528 Minutes: 58 Timed Code Treatment Minutes: 41 Minutes Shirin Bajwa, DANCE MASTER Date: 12/03/2022 documented in this encounterB[facility] History of Present illness Narrative* Rashel Cárdenas, PT - 12/01/2022 2:30 PM EDT [facility] Outpatient Physical Therapy Daily Note Patient: Piotr Kerr : 1960 CSN #: [id number] Referring Physician: Jorge Pritchett DO Date: 12/01/2022 Diagnosis: M54.50 low back pain, R29.898 weakness Treatment Diagnosis: weakness Onset Date: 08/13/22 PT Insurance Information: [employer] Total # of Visits Approved: 30 Per [...] order to improve functional strength---met 20 seconds Skiver Machine Operator Goals Time Frame for Assisted Goals : 6 weeks Skiver Machine Operator Goal 1: Pt will be safe and independent with his HEP Assisted Goal 2: Pt will increase L LE strength to >/=4-/5 and R LE strength to 4/5 in order toincrease ambulation tolerance-met (R LE: 4 to 4+/5; L LE: 4/5 grossly except ankle DF: 4-/5) Assisted Goal 3: Pt will be able to ambulate for 10 minutes with LRAD and no LOB with minimal fatigue in order to increase community ambulation-progressing (~5.5min max before fatigue/SOB requiring seated rest break) Skiver Machine Operator Goal 4: Pt will increase tinetti score to >/=20/28 in order to reduce fall risk Minutes Tracking: Time In: 1429 Time Out: 1524 Minutes: 55 Timed Code Treatment Minutes: 45 Minutes Rashel Cárdenas PT, DPT Date: 12/01/2022 documented in this encounterB[facility]06-[facility] Evaluation note* Encounter Date Diagnosis Assessment Notes [...] use, the patient reduces the risk for OR, CVA, HTN, cardiac dysrhythmias and sudden cardiac [...] of u rine (ICD-10 - R33.8) Oct, computer terminal operator (current) use of insulin (ICD-10 - Z79.4) [employer] Other 06-16-2023 History of Present illness Narrative* Rashel Cárdenas, PT - 11/07/2022 1:00 PM EDT [facility] Outpatient Physical Therapy Daily Note Patient: Piotr Kerr : 1960 CSN #: [id number] Referring Physician: Jorge Pritchett DO Date: 11/07/2022 Diagnosis: M54.50 low back pain, R29.898 weakness Treatment Diagnosis: weakness Onset Date: 08/13/22 PT Insurance Information: [employer] Total # of Visits Approved: 30 Per [...] order to improve functional strength---met 20 seconds Assisted Goals Time Frame for Skiver Machine Operator Goals : 6 weeks Assisted Goal 1: Pt will be safe and independent with his HEP Assisted Goal 2: Pt will increase L LE strength to >/=4-/5 and R LE strength to 4/5 in order toincrease ambulation tolerance-met (R LE: 4 to 4+/5; L LE: 4/5 grossly except ankle DF: 4-/5) Skiver Machine Operator Goal 3: Pt will be able to ambulate for 10 minutes with LRAD and no LOB with minimal fatigue in order to increase community ambulation-progressing (~5.5min max before fatigue/SOB requiring seated rest break) Assisted Goal 4: Pt will increase tinetti score to >/=20/28 in order to reduce fall risk Minutes Tracking: Time In: 1258 Time Out: 1345 Minutes: 47 Timed Code Treatment Minutes: 46 Minutes Rashel Cárdenas PT, DPT Date: 11/07/2022 documented in this encounterB[facility]06-[facility] History of Present illness Narrative* Shirin Bajwa, ALEXANDRA - 10/27/2022 1:00 PM EDT [facility] Outpatient Physical Therapy Daily Note Patient: Piotr Kerr : 1960 CSN #: [id number] Referring Physician: Jorge Pritchett DO Date: 10/27/2022 Treatment Diagnosis: weakness Onset Date: 08/13/22 PT Insurance Information: [employer] Total # of Visits Approved: 24 Per [...] He states he's had f/u appts with programmer numerical control and urologist in the meantime. He reports [...] 6: Sit to stand with eccentric lowering [id number] today with BUE support --difficulty witheccentric lower [...] order to improve functional strength---met 20 seconds Skiver Machine Operator Goals Time Frame for Skiver Machine Operator Goals : 6 weeks Skiver Machine Operator Goal 1: Pt will be safe and independent with his HEP Assisted Goal 2: Pt will increase L LE strength to >/=4-/5 and R LE strength to 4/5 in order toincrease ambulation tolerance-met (R LE: 4 to 4+/5; L LE: 4/5 grossly except ankle DF: 4-/5) Assisted Goal 3: Pt will be able to ambulate for 10 minutes with LRAD and no LOB with minimal fatigue in order to increase community ambulation-progressing (~5.5min max before fatigue/SOB requiring seated rest break) Assisted Goal 4: Pt will increase tinetti score to >/=20/28 in order to reduce fall risk Minutes Tracking: Time In: 1300 Time Out: 1345 Minutes: 45 Timed Code Treatment Minutes: 44 Minutes Shirin Bajwa PTA Date: 10/27/2022 documented in this encounterB[facility] [employer] Work Phone: 1(684) 381-907105-12-2023 History of Present illness Narrative* Shirin Bajwa PTA - 10/03/2022 12:30 PM EDT [facility] Outpatient Physical Therapy Daily Note Patient: Piotr Kerr : 1960 CSN #: [id number] Referring Physician: Jorge Pritchett DO Date: 10/03/2022 Treatment Diagnosis: weakness Onset Date: 08/13/22 PT Insurance Information: [employer] Total # of Visits Approved: 24 Per [...] order to improve functional strength---met 20 seconds Skiver Machine Operator Goals Time Frame for Assisted Goals : 6 weeks Assisted Goal 1: Pt will be safe and independent with his HEP Skiver Machine Operator Goal 2: Pt will increase L LE strength to >/=4-/5 and R LE strength to 4/5 in order toincrease ambulation tolerance-met (R LE: 4 to 4+/5; L LE: 4/5 grossly except ankle DF: 4-/5) Assisted Goal 3: Pt will be able to ambulate for 10 minutes with LRAD and no LOB with minimal fatigue in order to increase community ambulation-progressing (~5.5min max before fatigue/SOB requiring seated rest break) Skiver Machine Operator Goal 4: Pt will increase tinetti score to >/=20/28 in order to reduce fall risk Minutes Tracking: Time In: 1231 Time Out: 1315 Minutes: 44 Shirin Bajwa PTA Date: 10/03/2022 documented in this encounterBON [employer] Phone: [phone]) 244-866004-24-2023 History of Present illness Narrative* Shirin Bajwa, DANCE MASTER - 09/15/2022 1:00 PM EDT [facility] Outpatient Physical Therapy Daily Note Patient: Piotr Kerr : 1960 CSN #: [id number] Referring Physician: Jorge Pritchett DO Date: 09/15/2022 Onset Date: 08/13/22 PT Insurance Information: [employer] Total # of Visits Approved: 12 Per [...] order to improve functional strength---met 20 seconds Skiver Machine Operator Goals Time Frame for Skiver Machine Operator Goals : 6 weeks Assisted Goal 1: Pt will be safe and independent with his HEP Assisted Goal 2: Pt will increase L LE strength to >/=4-/5 and R LE strength to 4/5 in order toincrease ambulation tolerance Skiver Machine Operator Goal 3: Pt will be able to ambulate for 10 minutes with LRAD and no LOB with minimal fatigue in order to increase community ambulation Assisted Goal 4: Pt will increase tinetti score to >/20/28 in order to reduce fall risk Minutes Tracking: Time In: 1300 Time Out: 1342 Minutes: 42 Timed Code Treatment Minutes: 41 Minutes Shirin Bajwa PTA Date: 09/15/2022 documented in this encounterB[facility] [employer] Phone: 1(264) 862-208004-14-2023 History of Present illness Narrative* Chris Sauceda, PT - 09/05/2022 3:30 PM EDT [facility] Outpatient Physical Therapy Daily Note Patient: Piotr Kerr : 1960 CSN #: [id number] Referring Physician: Jorge Pritchett DO Date: 09/05/2022 Treatment Diagnosis: weakness Onset Date: 08/13/22 PT Insurance Information: [employer] Total # of Visits Approved: 12 Per [...] seconds in order to improve functional strength\ Assisted Goals Time Frame for Skiver Machine Operator Goals : 6 weeks Assisted Goal 1: Pt will be safe and independent with his HEP Skiver Machine Operator Goal 2: Pt will increase L LE strength to >/=4-/5 and R LE strength to 4/5 in order toincrease ambulation tolerance Skiver Machine Operator Goal 3: Pt will be able to ambulate for 10 minutes with LRAD and no LOB with minimal fatigue in order to increase community ambulation Skiver Machine Operator Goal 4: Pt will increase tinetti score to >/20/28 in order to reduce fall risk Minutes Tracking: Time In: 2 Time Out: 1628 Minutes: 56 Timed Code Treatment Minutes: 54 Minutes Chris Sauceda PT Date: 09/05/2022 documented in this encounterB[facility] [employer] Work Phone: [phone]) 863-751804-07-2023 History of Present illness Narrative* Shirin Bajwa, DANCE MASTER - 08/29/2022 2:45 PM EDT [facility] Outpatient Physical Therapy Daily Note Patient: Piotr Kerr : 1960 CSN #: [id number] Referring Physician: Jorge Pritchett DO Date: 08/29/2022 Treatment Diagnosis: weakness Onset Date: 08/13/22 PT Insurance Information: [employer] Total # of Visits Approved: 12 Per [...] seconds in order to improve functional strength Assisted Goals Time Frame for Assisted Goals : 6 weeks Skiver Machine Operator Goal 1: Pt will be safe and independent with his HEP Assisted Goal 2: Pt will increase L LE strength to >/=4-/5 and R LE strength to 4/5 in order toincrease ambulation tolerance Skiver Machine Operator Goal 3: Pt will be able to ambulate for 10 minutes with LRAD and no LOB with minimal fatigue in order to increase community ambulation Assisted Goal 4: Pt will increase tinetti score to >/20/28 in order to reduce fall risk Minutes Tracking: Time In: 1445 Time Out: 1528 Minutes: 43 Shirin Bajwa, DANCE MASTER Date: 08/29/2022 documented in this encounterB[facility] [employer] Phone: 1(602) 133-997704-03-2023 History of Present illness Narrative* Chris Sauceda PT - 08/25/2022 2:45 PM EDT [facility] Outpatient Physical Therapy Daily Note Patient: Piotr Kerr : 1960 CSN #: [id number] Referring Physician: Jorge Pritchett DO Date: 08/25/2022 Treatment Diagnosis: weakness Onset Date: 08/13/22 PT Insurance Information: [employer] Total # of Visits Approved: 12 Per [...] seconds in order to improve functional strength Assisted Goals Time Frame for Assisted Goals : 6 weeks Skiver Machine Operator Goal 1: Pt will be safe and independent with his HEP Skiver Machine Operator Goal 2: Pt will increase L LE strength to >/=4-/5 and R LE strength to 4/5 in order toincrease ambulation tolerance Assisted Goal 3: Pt will be able to ambulate for 10 minutes with LRAD and no LOB with minimal fatigue in order to increase community ambulation Assisted Goal 4: Pt will increase tinetti score to >/20/28 in order to reduce fall risk Minutes Tracking: Time In: 1443 Time Out: 1541 Minutes: 58 Timed Code Treatment Minutes: 55 Minutes Chris Sauceda PT Date: 08/25/2022 [facility] encounterB[facility] Phone: [phone] 917-942503-29-2023 History of Present illness Narrative* Kelly Amaya PT - 08/20/2022 1:00 PM EDT [facility] Outpatient Physical Therapy Evaluation Date: 08/20/2022 Patient: Piotr Conleybailey : 1960 CSN #: [id number] Referring Physician: Jorge Pritchett DO Medical Diagnosis: M54.50 low back pain, R29.898 weakness Treatment Diagnosis: weakness Onset Date: 08/13/22 PT Insurance Information: [employer] Total # of Visits Approved: 12 Total [...] seconds in order to improve functional strength Assisted Goals Time Frame for Assisted Goals : 6 weeks Assisted Goal 1: Pt will be safe and independent with his HEP Skiver Machine Operator Goal 2: Pt will increase L LE strength to >/=4-/5 and R LE strength to 4/5 in order toincrease ambulation tolerance Assisted Goal 3: Pt will be able to ambulate for 10 minutes with LRAD and no LOB with minimal fatigue in order to increase community ambulation Assisted Goal 4: Pt will increase tinetti score to >/20/28 in order to reduce fall risk Patient Goals : to get my strength back Minutes Tracking: Time In: 1252 Time Out: 1350 Minutes: 58 Timed Code Treatment Minutes: 56 Minutes Kelly Amaya PT, DPT 08/20/2022 documented in this encounterBON [employer] Work Phone: [phone]) 153-925003-20-2023 Evaluation note* Encounter Date Diagnosis Assessment Notes [...] use, the patient reduces the risk for OR, CVA, HTN, cardiac dysrhythmias and sudden cardiac deaths.The patient is also aware of the association between CHRIS and morning headaches, daytime somnolence, fatigue and obesity, which also has been improved with continued use.The patient is compliant with treatment, wearing the equipment every night for greater than 4 hours.The patient is instructed to continue use of the CPAP for CHRIS treatment. 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 Diaz catheter care reviewed and demonstrated to patient. Patient and verbalize understanding and denies any questions at this time. Kenya Irizarry CHOIR LEADER notified of patients BP. Patient states that he normally takes his BP medications in the evening at dinner time. Per Kenya Irizarry CHOIR LEADER patient is to take BP medication when [...] and cardiac clearance. documented in this encounterBON [facility] [employer] Phone: 1(130) 170-470902-21-2023 Hospital Discharge instructions* Discharge Instructions* Julissa Campbell [...] is called flank pain.) Call Dr. Ferrer ([phone]) if you develop: Fever over 100 degrees [...] Call Dr. Ferrer office for follow-up appointment ([phone]). documented in this [facility] [employer] Phone: [phone]) 820-566202-21-2023 Evaluation note* Encounter Date Diagnosis Assessment Notes Treatment Notes Treatment Clinical Notes Jun, Cardiomyopathy, ischemic (ICD-10 - I25.5) NM stress: inferolateral ischemia 06/2022 [employer] Other 02-17-2023 History of Present illness Narrative* Fatmata Cecilia - 07/11/2022 10:00 AM EST Explained policies and procedure of an echocardiogram/Doppler study. [facility] [employer] Phone: 1(422) 667-494002-17-2023 History of Present illness Narrative* Alie Dunn RN - 07/11/2022 9:15 AM EST Instructed on objectives and procedure of lexiscan/cardiolite stress test. documented in this [facility] [employer] Phone: [phone]) [phone] Evaluation note* Encounter Date Diagnosis Assessment Notes Treatment Notes Treatment Clinical Notes Jun, Preop exam for internal medicine (ICD-10 - Z01.818) Reviewed medication w/ patient. He will be discussing stop date for his Aspirin and Plavix with his Health Care Coordinator. Jun, ASHD (arteriosclerotic heart disease) (ICD-10 - I25.10) Stable w/o activity limiting symptoms. He is aware of the increased risk for OR when off DAPT. Jun, Primary hypertension (ICD-10 [...] thrombosis with d/c DAPT. Jun, Other Stable [employer] Other [id number] History of Present illness Narrative* Huang Urbina, PT - 05/22/2022 1:15 PM EST [facility] Outpatient Physical Therapy Daily Note Patient: Piotr Kerr : 1960 CSN #: [id number] Referring Physician: Jorge Pritchett DO Date: 05/22/2022 Treatment Diagnosis: Difficulty walking PT Insurance Information: [employer] Total # of Visits Approved: 45 Per [...] no LOB to improve functional strength. -MET Assisted Goals Time Frame for Assisted Goals : 6 weeks Assisted Goal 1: Patient to be independent and compliant with HEP.--met Assisted Goal 2: Patient to have improved L LE strength >/=4-/5 and R LE >/=4/5 grossly for improved ease with transfers and ambulation. Assisted Goal 3: Patient to be able to stand/walk >/=5 mins with LRAD and no LOB or fatigue with SpO2 >/=90% for improved functional endurance.-met Skiver Machine Operator Goal 4: Patient to have improved Tinetti balance score >/=19/28 to decrease fall risk. Skiver Machine Operator Goal 5: Updated: Pt to stand/ambulate >/=10minutes with LRAD and no LOB or fatigue to improve endurance. Minutes Tracking: Time In: 1321 Time Out: 1414 Minutes: 53 Timed Code Treatment Minutes: 41 Minutes Huang Urbina PT, DPT Date: 05/22/2022 documented in this encounterB[facility] Work Phone: [phone]) 188-568111-07-2022 History of Present illness Narrative* Chris Sauceda, GRACY - 03/31/2022 4:30 PM EST [facility] Outpatient Physical Therapy Daily Note Patient: Piotr Kerr : 1960 CSN #: [id number] Referring Physician: Jorge Pritchett DO Date: 03/31/2022 Treatment Diagnosis: Difficulty walking PT Insurance Information: [employer] Total # of Visits Approved: 45 Per [...] sink ex 10x Exercise 7: SC amb [id number] Exercise 9: Heel/toe raises + lateral step [...] no LOB to improve functional strength. -MET Assisted Goals Time Frame for Skiver Machine Operator Goals : 6 weeks Skiver Machine Operator Goal 1: Patient to be independent and compliant with HEP.--met Assisted Goal 2: Patient to have improved L LE strength >/=4-/5 and R LE >/=4/5 grossly for improved ease with transfers and ambulation. Assisted Goal 3: Patient to be able to stand/walk >/=5 mins with LRAD and no LOB or fatigue with SpO2 >/=90% for improved functional endurance.-met Skiver Machine Operator Goal 4: Patient to have improved Tinetti balance score >/=19/28 to decrease fall risk. Assisted Goal 5: Updated: Pt to stand/ambulate >/=10minutes with LRAD and no LOB or fatigue to improve endurance. Minutes Tracking: Time In: 1632 Time Out: 1722 Minutes: 50 Timed Code Treatment Minutes: 48 Minutes Chris Sauceda PT Date: 03/31/2022 documented in this encounterBON [facility] [employer] Phone: [phone]) 250-250311-02-2022 History of Present illness Narrative* Shirin Bajwa PTA - 03/26/2022 2:30 PM EDT [facility] Outpatient Physical Therapy Daily Note Patient: Piotr Kerr : 1960 CSN #: [id number] Referring Physician: Jorge Pritchett DO Date: 03/26/2022 Diagnosis: Weakness of both LE's, R29.898 Treatment Diagnosis: Difficulty walking PT Insurance Information: [employer] Total # of Visits Approved: 45 Per [...] with 8# ball Exercise 7: SC amb [id number] Exercise 10: ignacio step overs (small) forward [...] no LOB to improve functional strength. -MET Skiver Machine Operator Goals Time Frame for Skiver Machine Operator Goals : 6 weeks Skiver Machine Operator Goal 1: Patient to be independent and compliant with HEP.--met Assisted Goal 2: Patient to have improved L LE strength >/=4-/5 and R LE >/=4/5 grossly for improved ease with transfers and ambulation. Skiver Machine Operator Goal 3: Patient to be able to stand/walk >/=5 mins with LRAD and no LOB or fatigue with SpO2 >/=90% for improved functional endurance.-met Skiver Machine Operator Goal 4: Patient to have improved Tinetti balance score >/=19/28 to decrease fall risk. Skiver Machine Operator Goal 5: Updated: Pt to stand/ambulate >/=10minutes with LRAD and no LOB or fatigue to improve endurance. Minutes Tracking: Time In: 1433 Time Out: 1511 Minutes: 38 Shirin Bajwa PTA Date: 03/26/2022 documented in this encounterBON [facility] [employer] Phone: [phone]) 267-755410-31-2022 History of Present illness Narrative* Huang Urbina, PT - 03/24/2022 3:00 PM EDT [facility] Outpatient Physical Therapy Daily Note Patient: Piotr Kerr : 1960 CSN #: [id number] Referring Physician: Jorge Pritchett DO Date: 03/24/2022 Treatment Diagnosis: Difficulty walking PT Insurance Information: [employer] Total # of Visits Approved: 36 Per [...] resistance to continue to work toward his alf strength goals. He reported fatigue following his [...] no LOB to improve functional strength. -MET Skiver Machine Operator Goals Time Frame for Assisted Goals : 6 weeks Assisted Goal 1: Patient to be independent and compliant with HEP.--met Skiver Machine Operator Goal 2: Patient to have improved L LE strength >/=4-/5 and R LE >/=4/5 grossly for improved ease with transfers and ambulation. Assisted Goal 3: Patient to be able to stand/walk >/=5 mins with LRAD and no LOB or fatigue with SpO2 >/=90% for improved functional endurance.-progressing Skiver Machine Operator Goal 4: Patient to have improved Tinetti balance score >/=19/28 to decrease fall risk. Minutes Tracking: Time In: 1505 Time Out: 1550 Minutes: 45 Timed Code Treatment Minutes: 43 Minutes Huang Urbina PT, DPT Date: 03/24/2022 documented in this encounterBON [facility] [employer] Work Phone: [phone]) 272-209810-25-2022 History of Present illness Narrative* Chris Sauceda, PT - 03/18/2022 1:45 PM EDT [facility] Outpatient Physical Therapy Daily Note Patient: Piotr Kerr : 1960 CSN #: [id number] Referring Physician: Jorge Pritchett DO Date: 03/18/2022 [...] no LOB to improve functional strength. -MET Skiver Machine Operator Goals Time Frame for Skiver Machine Operator Goals : 6 weeks Assisted Goal 1: Patient to be independent and compliant with HEP.--met Assisted Goal 2: Patient to have improved L LE strength >/=4-/5 and R LE >/=4/5 grossly for improved ease with transfers and ambulation. Skiver Machine Operator Goal 3: Patient to be able to stand/walk >/=5 mins with LRAD and no LOB or fatigue with SpO2 >/=90% for improved functional endurance.-progressing Assisted Goal 4: Patient to have improved Tinetti balance score >/=/28 to decrease fall risk. Minutes Tracking: Time In: 1358 Time Out: 1457 Minutes: 59 Timed Code Treatment Minutes: 55 Minutes Chris Sauceda PT Date: 03/18/2022 documented in this encounterB[facility] [employer] Work Phone: [phone]) 583-245410-21-2022 History of Present illness Narrative* Yumiko Montes, ALEXANDRA - 03/14/2022 12:45 PM EDT [facility] Outpatient Physical Therapy Daily Note Patient: Piotr Kerr : 1960 CSN #: [id number] Referring Physician: Jorge Pritchett DO Date: 03/14/2022 Treatment Diagnosis: Difficulty walking PT Insurance Information: [employer] [place] Total # of Visits Approved: 36 Per [...] no LOB to improve functional strength. -MET Skiver Machine Operator Goals Time Frame for Assisted Goals : 6 weeks Skiver Machine Operator Goal 1: Patient to be independent and compliant with HEP.--met Skiver Machine Operator Goal 2: Patient to have improved L LE strength >/=4-/5 and R LE >/=4/5 grossly for improved ease with transfers and ambulation. Assisted Goal 3: Patient to be able to stand/walk >/=5 mins with LRAD and no LOB or fatigue with SpO2 >/=90% for improved functional endurance.-progressing Assisted Goal 4: Patient to have improved Tinetti balance score >/=19/28 to decrease fall risk. Minutes Tracking: Time In: 1245 Time Out: 1327 Minutes: 42 Yumiko Montes, DANCE MASTER Date: 03/14/2022 documented in this encounterB[facility] [employer] Work Phone: [phone]) 181-727110-13-2022 History of Present illness Narrative* Rashel Cárdenas, PT - 03/06/2022 12:30 PM EDT [facility] Outpatient Physical Therapy Daily Note Patient: Piotr Kerr : 1960 CSN #: [id number] Referring Physician: Jorge Pritchett DO Date: 03/06/2022 Diagnosis: Weakness of both LE's, R29.898 Treatment Diagnosis: Difficulty walking PT Insurance Information: [employer] [place] Total # of Visits Approved: 36 Per [...] no LOB to improve functional strength. -MET Skiver Machine Operator Goals Time Frame for Assisted Goals : 6 weeks Assisted Goal 1: Patient to be independent and compliant with HEP.--met Skiver Machine Operator Goal 2: Patient to have improved L LE strength >/=4-/5 and R LE >/=4/5 grossly for improved ease with transfers and ambulation. Assisted Goal 3: Patient to be able to stand/walk >/=5 mins with LRAD and no LOB or fatigue with SpO2 >/=90% for improved functional endurance.-progressing Assisted Goal 4: Patient to have improved Tinetti balance score >/=19/28 to decrease fall risk. Minutes Tracking: Time In: 1228 Time Out: 1321 Minutes: 53 Timed Code Treatment Minutes: 50 Minutes Rashel Cárdenas PT, DPT Date: 03/06/2022 documented in this encounterBON [facility] [facility] [employer] Work Phone: [phone]) [phone] History of Present illness Narrative* Yumiko Montes, DANCE MASTER - 03/04/2022 12:00 PM EDT [facility] Outpatient Physical Therapy Daily Note Patient: Piotr Kerr : 1960 CSN #: [id number] Referring Physician: Jorge Pritchett DO Date: 03/04/2022 Treatment Diagnosis: Difficulty walking PT Insurance Information: [employer] [place] Total # of Visits Approved: 36 Per [...] no LOB to improve functional strength. -MET Assisted Goals Time Frame for Assisted Goals : 6 weeks Assisted Goal 1: Patient to be independent and compliant with HEP.--met Skiver Machine Operator Goal 2: Patient to have improved L LE strength >/=4-/5 and R LE >/=4/5 grossly for improved ease with transfers and ambulation. Assisted Goal 3: Patient to be able to stand/walk >/=5 mins with LRAD and no LOB or fatigue with SpO2 >/=90% for improved functional endurance.-progressing Skiver Machine Operator Goal 4: Patient to have improved Tinetti balance score >/=19/28 to decrease fall risk. Minutes Tracking: Time In: 1202 Time Out: 1245 Minutes: 43 Yumiko Montes PTA Date: 03/04/2022 documented in this encounterB[facility] [employer] Phone: [phone] History of Present illness Narrative* Yumiko Montes PTA - 02/07/2022 2:15 PM EDT [facility] Outpatient Physical Therapy Daily Note Patient: Piotr Kerr : 1960 CSN #: [id number] Referring Physician: Jorge Pritchett DO Date: 02/07/2022 Treatment Diagnosis: Difficulty walking PT Insurance Information: [employer] [place] Total # of Visits Approved: 24 Per [...] no LOB to improve functional strength. -MET Assisted Goals Time Frame for USP goals : 6 weeks computer terminal operator goal 1: Patient to be independent and compliant with HEP.--met computer terminal operator goal 2: Patient to have improved L LE strength >/=4-/5 and R LE >/=4/5 grossly for improved ease with transfers and ambulation. USP goal 3: Patient to be able to stand/walk >/=5 mins with LRAD and no LOB or fatigue with SpO2 >/=90% for improved functional endurance.-progressing USP goal 4: Patient to have improved Tinetti balance score >/=19/28 to decrease fall risk. Minutes Tracking: Time In: 1415 Time Out: 1501 Minutes: 46 Yumiko Montes, DANCE MASTER Date: 02/07/2022 documented in this encounterBON [employer] Phone: [phone] 251-320309-06-2022 History of Present illness Narrative* Rashel Cárdenas, PT - 01/28/2022 2:15 PM EDT [facility] Outpatient Physical Therapy Daily Note Patient: Piotr Kerr : 1960 CSN #: [id number] Referring Physician: Jorge Pritchett DO Date: 01/28/2022 Diagnosis: Weakness of both LE's, R29.898 Treatment Diagnosis: Difficulty walking PT Insurance Information: [employer] [place] Total # of Visits Approved: 24 Per [...] no LOB to improve functional strength. -MET Assisted Goals Time Frame for USP goals : 6 weeks computer terminal operator goal 1: Patient to be independent and compliant with HEP.--met USP goal 2: Patient to have improved L LE strength >/=4-/5 and R LE >/=4/5 grossly for improved ease with transfers and ambulation. computer terminal operator goal 3: Patient to be able to stand/walk >/=5 mins with LRAD and no LOB or fatigue with SpO2 >/=90% for improved functional endurance.-progressing computer terminal operator goal 4: Patient to have improved Tinetti balance score >/=19/28 to decrease fall risk. Minutes Tracking: Time In: 1414 Time Out: 1500 Minutes: 46 Timed Code Treatment Minutes: 45 Minutes Rashel Cárdenas PT, DPT Date: 01/28/2022 documented in this encounterB[facility] [employer] Phone: [phone]) 108-356309-02-2022 History of Present illness Narrative* Rashel Cárdenas PT - 01/24/2022 11:45 AM EDT [facility] Outpatient Physical Therapy Daily Note Patient: Piotr Kerr : 1960 CSN #: [id number] Referring Physician: Jorge Pritchett DO Date: 01/24/2022 Diagnosis: Weakness of both LE's, R29.898 Treatment Diagnosis: Difficulty walking PT Insurance Information: [employer] [place] Total # of Visits Approved: 24 Per [...] no LOB to improve functional strength. -MET Assisted Goals Time Frame for computer terminal operator goals : 6 weeks computer terminal operator goal 1: Patient to be independent and compliant with HEP.--met USP goal 2: Patient to have improved L LE strength >/=4-/5 and R LE >/=4/5 grossly for improved ease with transfers and ambulation. USP goal 3: Patient to be able to stand/walk >/=5 mins with LRAD and no LOB or fatigue with SpO2 >/=90% for improved functional endurance.-progressing computer terminal operator goal 4: Patient to have improved Tinetti balance score >/=19/28 to decrease fall risk. Minutes Tracking: Time In: 1146 Time Out: 1234 Minutes: 48 Timed Code Treatment Minutes: 47 Minutes Rashel Cárdenas PT, DPT Date: 01/24/2022 documented in this encounterB[facility] [employer] Phone: [phone]) [phone] History of Present illness Narrative* Rashel Cárdenas PT - 01/16/2022 2:30 PM EDT [facility] Outpatient Physical Therapy Daily Note Patient: Piotr Kerr : 1960 CSN #: [id number] Referring Physician: Jorge Pritchett DO Date: 01/16/2022 Diagnosis: Weakness of both LE's, R29.898 Treatment Diagnosis: Difficulty walking PT Insurance Information: [employer] [place] Total # of Visits Approved: 24 Per [...] no LOB to improve functional strength. -MET Assisted Goals Time Frame for computer terminal operator goals : 6 weeks USP goal 1: Patient to be independent and compliant with HEP.--met USP goal 2: Patient to have improved L LE strength >/=4-/5 and R LE >/=4/5 grossly for improved ease with transfers and ambulation. USP goal 3: Patient to be able to stand/walk >/=5 mins with LRAD and no LOB or fatigue with SpO2 >/=90% for improved functional endurance.-progressing USP goal 4: Patient to have improved Tinetti balance score >/=19/28 to decrease fall risk. Minutes Tracking: Time In: 1430 Time Out: 1512 Minutes: 42 Timed Code Treatment Minutes: 41 Minutes Rashel Cárdenas, PT, DPT Date: 01/16/2022 documented in this encounterBON [employer] Work Phone: [phone]) 372-778208-17-2022 History of Present illness Narrative* Doc Agrawal, DANCE MASTER - 01/08/2022 1:45 PM EDT [facility] Outpatient Physical Therapy Daily Note Patient: Piotr Kerr : 1960 CSN #: [id number] Referring Physician: Jorge Pritchett DO Date: 01/08/2022 [...] no LOB to improve functional strength. -MET Skiver Machine Operator Goals Time Frame for computer terminal operator goals : 6 weeks computer terminal operator goal 1: Patient to be independent and compliant with HEP. USP goal 2: Patient to have improved L LE strength >/=4-/5 and R LE >/=4/5 grossly for improved ease with transfers and ambulation. computer terminal operator goal 3: Patient to be able to stand/walk >/=5 mins with LRAD and no LOB or fatigue with SpO2 >/=90% for improved functional endurance. USP goal 4: Patient to have improved Tinetti balance score >/=19/28 to decrease fall risk. Minutes Tracking: Time In: 1346 Time Out: 1430 Minutes: 44 Timed Code Treatment Minutes: 43 Minutes Doc Agrawal PTA Date: 01/08/2022 documented in this encounterB[facility] [employer] Phone: [phone]) [phone] History of Present illness Narrative* Doc Agrawal PTA - 01/03/2022 2:45 PM EDT [facility] Outpatient Physical Therapy Daily Note Patient: Piotr Kerr : 1960 CSN #: [id number] Referring Physician: Jorge Pritchett DO Date: 01/03/2022 [...] no LOB to improve functional strength. -MET Skiver Machine Operator Goals Time Frame for USP goals : 6 weeks computer terminal operator goal 1: Patient to be independent and compliant with HEP. computer terminal operator goal 2: Patient to have improved L LE strength >/=4-/5 and R LE >/=4/5 grossly for improved ease with transfers and ambulation. USP goal 3: Patient to be able to stand/walk >/=5 mins with LRAD and no LOB or fatigue with SpO2 >/=90% for improved functional endurance. USP goal 4: Patient to have improved Tinetti balance score >/=19/28 to decrease fall risk. Minutes Tracking: Time In: 1446 Time Out: 1540 Minutes: 54 Timed Code Treatment Minutes: 49 Minutes Doc Agrawal DANCE MASTER Date: 01/03/2022 documented in this encounterBON [facility] Work Phone: [phone]) [phone] History of Present illness Narrative* Doc Agrawal PTA - 01/01/2022 4:15 PM EDT [facility] Outpatient Physical Therapy Daily Note Patient: Piotr Kerr : 1960 [facility] #: [id number] Referring Physician: Jorge Pritchett DO Date: 01/01/2022 [...] and no LOB to improve functional strength. Assisted Goals Time Frame for USP goals : 6 weeks computer terminal operator goal 1: Patient to be independent and compliant with HEP. USP goal 2: Patient to have improved L LE strength >/=4-/5 and R LE >/=4/5 grossly for improved ease with transfers and ambulation. USP goal 3: Patient to be able to stand/walk >/=5 mins with LRAD and no LOB or fatigue with SpO2 >/=90% for improved functional endurance. USP goal 4: Patient to have improved Tinetti balance score >/=19/28 to decrease fall risk. Minutes Tracking: Time In: 1616 Time Out: 1703 Minutes: 47 Timed Code Treatment Minutes: 45 Minutes Doc AgrawalALEXANDRA Date: 01/01/2022 documented in this encounterBON [facility] Work Phone: [phone]) [phone] History of Present illness Narrative* Rashel Cárdenas, PT - 12/27/2021 2:00 PM EDT [facility] Outpatient Physical Therapy Daily Note Patient: Piotr Kerr : 1960 CSN #: [id number] Referring Physician: Jorge Pritchett DO Date: 12/27/2021 Diagnosis: Weakness of both LE's, R29.898 Treatment Diagnosis: Difficulty walking PT Insurance Information: [employer] [place] Total # of Visits Approved: 12 Per [...] and no LOB to improve functional strength. Assisted Goals Time Frame for USP goals : 6 weeks computer terminal operator goal 1: Patient to be independent and compliant with HEP. USP goal 2: Patient to have improved L LE strength >/=4-/5 and R LE >/=4/5 grossly for improved ease with transfers and ambulation. computer terminal operator goal 3: Patient to be able to stand/walk >/=5 mins with LRAD and no LOB or fatigue with SpO2 >/=90% for improved functional endurance. computer terminal operator goal 4: Patient to have improved Tinetti balance score >/=19/28 to decrease fall risk. Minutes Tracking: Time In: 1355 Time Out: 1444 Minutes: 49 Timed Code Treatment Minutes: 47 Minutes Rashel Cárdenas PT, DPT Date: 12/27/2021 documented in this encounterB[facility] [employer] Work Phone: 1(958) [phone] History of Present illness Narrative* Rashel Cárdenas PT - 12/17/2021 10:00 AM EDT [facility] Outpatient Physical Therapy Evaluation Date: 12/17/2021 Patient: Piotr Kerr : 1960 CSN #: [id number] Referring Physician: Jorge Pritchett DO Medical Diagnosis: Weakness of both LE's, R29.898 Treatment Diagnosis: Difficulty walking PT Insurance Information: [employer] [place] Total # of Visits to Date: 1 [...] and no LOB to improve functional strength. Skiver Machine Operator Goals Time Frame for USP goals : 6 weeks USP goal 1: Patient to be independent and compliant with HEP. computer terminal operator goal 2: Patient to have improved L LE strength >/=4-/5 and R LE >/=4/5 grossly for improved ease with transfers and ambulation. computer terminal operator goal 3: Patient to be able to stand/walk >/=5 mins with LRAD and no LOB or fatigue with SpO2 >/=90% for improved functional endurance. computer terminal operator goal 4: Patient to have improved Tinetti balance score >/=19/28 to decrease fall risk. Minutes Tracking: Time In: 1029 Time Out: 1101 Minutes: 32 Timed Code Treatment Minutes: 31 Minutes Rashel Cárdenas PT, DPT 12/17/2021 [facility] [employer] Phone: [phone]) [phone] History of Present illness Narrative* Josefa Ruvalcaba [...] Health, food label guide, documented in this [facility] [employer] Phone: [phone]) 605-268905-23-2022 History of Present illness Narrative* Tamiko Rey - 10/14/2021 11:00 AM EDT Cardiopulmonary Rehab Medical Nutrition Therapy Food Diary Evaluation Patient Name: Piotr Kerr Registered Dietitian: Tamiko Le, Gun Mechanic Date: 10/14/2021 Dear Piotr, Thank you for [...] can come from things like your strudel, kyrgyz toast sticks, andPower aid. Men only need [...] Recommendations are based on guidelines from the [place] Heart Association, [place] Diabetes Association and current literature. Feel free to call with questions or concerns [phone] or [phone] Tamiko Le Gun Mechanic documented in this encounterBON [employer] Phone: 1(215) [phone] History of Present illness Narrative* Sally Armijo [...] dizziness at <5 METs or during recovery OR or cardiac surgery complicated by cardiogenic shock, [...] resting or exercise induced complex dysrhythmias Uncomplicate OR, CABG, angioplasty, atherectomy, or stent Normal hemodynamic [...] sets may be added. Education: [x] Equipment [place] [] Understanding BP [x] S/S to report [...] Score: 4 PHQ9 score: Intervention: [] Psych Consult/social media project manager [] Uses stress management skills [] Physician [...] of body weight over the program, utilizing houseperson recommendations, moderating nutrional intake, and performing regular aerobic and strength training exercises as prescribed, as evidenced by pre- and post- program nutriton survey and routine rounding with patient to ascertain progression toward goal per patient's self report, food diary, and Liio-korr-Rsxbx screening survey. Strive for a lower daily [...] Rehabilitation Physician Order Form Piotrarin Kerr 1960 [id number] 09/27/2021 [x] Phase 2 ECG Monitored Cardiac Rehabilitation [] OR [x] PTCA with stents [] CABG [] [...] Initial History and Assessment Piotr Kerr 1960 [id number] 09/27/2021 Primary Diagnosis: PTCA w/SYLVIA on 06/03/2021 and 09/09/2021 Living Will: [] Yes [x] No On File: [] Yes [] No [x] N/A Durable Power of Fire Safety Director: [] Yes [x] No Medical History Past Medical History: Diagnosis Date Cerebrovascular accident (CVA) (HCC) Chronic pain COVID-19 06/05/2021 Essential hypertension H/O heart artery stent computer terminal operator (current) use of insulin (HCC) Type 2 [...] usually run? 110-160 Have you seen a houseperson or clinical unit educator [] Yes [x] No HbA1c on 06/06/2021: [...] No significant change was found VR-66 bpm NM-144 ms QRS-80 ms QT/QTc-382/400 ms Cardiac Cath [...] dizziness at <5 METs or during recovery OR or cardiac surgery complicated by cardiogenic shock, [...] resting or exercise induced complex dysrhythmias Uncomplicate OR, CABG, angioplasty, atherectomy, or stent Normal hemodynamic [...] of body weight over the program, utilizing houseperson recommendations, moderating nutrional intake, and performing regular aerobic and strength training exercises as prescribed, as evidenced by pre- and post- program nutriton survey and routine rounding with patient to ascertain progression toward goal per patient's self report, food diary, and Qjsw-gmyt-Iazvl screening survey. Strive for a lower daily [...] routine rounding with patient. documented in this [email or web address] Phone: 1(625) 174-705401-08-2022 History of Present illness Narrative* Kae Goodrich RN - 06/01/2021 2:25 PM EST Patient discharged to home with at this time. Transports via w/c. * Kae Goodrich RN - 06/01/2021 2:08 PM EST Discharge instructions reviewed with patient and . Both are aware of all upcoming appointments and need for follow up with urology and Dr. Kan after stenting completed on Thursday at [facility]. Education given regarding diaz and diaz care. Supplies provided. Patient and voice understandingof all. Opportunity given for questions to be asked and answered. Patient and voice understanding of all. * Kae oGodrich RN - 06/01/2021 1:17 PM EST Driving Teacher attempts to contact patient's Mary for ETA, message left on voicemail. * Rashel Cárdenas PT - 06/01/2021 10:27 AM EST Physical Therapy Facility/Department: [facility] Daily Treatment Note NAME: [...] pain, Essential hypertension, H/O heart artery stent, computer terminal operator (current) use of insulin (HCC), and Type [...] muscle spasms, which is chronic for him. Driving Teacher informed patient that it was to soon [...] 05/31/2021 2:18 PM EST Physical Therapy Facility/Department: [facility] Daily Treatment Note NAME: [...] past medical history of Cerebrovascular accident (CVA) ([facility]), Chronic pain, Essential hypertension, H/O heart artery stent, USP (current) use of insulin (HCC), and Type [...] stents placed in 2013 or 2015 in [place] at [facility]. He also has a history of hypertension and high cholesterol over the past 5-7 years. He also notes he is a diabetic and uses insulin 3 times per day. He had a stroke in June 2020, he was seen and evaluated at [facility]. Since his storke he has had continues [...] [facility] He is awaiting [...] outpatient PCI on Thursday at noon at [facility]. I told her he is not stable [...] Medical History: Diagnosis Date Cerebrovascular accident (CVA) ([facility]) Chronic pain Essential hypertension H/O heart artery stent USP (current) use of insulin ([facility]) Type 2 diabetes mellitus without complication ([facility]) CURRENT ALLERGIES: Patient has no known allergies. REVIEW OF SYSTEMS: 14 systems were reviewed. Pertinent positives and negatives as above, all else negative. Past Surgical History: Procedure Laterality Date CARDIAC CATHETERIZATION 05/29/2021 Dr Mars/[facility]/right radial-Severe three vessel coronary artery disease involving [...] [employer] 11 Cholecalciferol (VITAMIN D3) 1.25 MG (13098 UT) CAPS Take 1 capsule by mouth [...] ventricular end diastolic pressure. Awaiting transfer to [facility] for stents, however there are no beds [...] showed mild osteoarthritis Chronic systolic heart failure: [place] Heart Association Class: IV (Severe limitations, symptoms [...] with Cassie Morejon CNP [facility] who was also in agreement with the plan. We will have him follow up with us as an outpatient in 2-3 weeks. Sincerely, Beata Harris PA-C [facility] [employer] Internet Sales Manager [address] [place] [address] , I believe that the risk of significant morbidity and mortality related to the patient's current medical conditions are: high. May 31, 2021 * Kae Goodrich RN - 05/31/2021 7:58 AM EST Patient's Mary updated via telephone. 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 05/31/2021 7:39 AM * Ivy Yin RN - 05/31/2021 12:56 AM EST Pt resting comfortably upon arrive. Pt is on room air. Vitals and second assessment done at this time. * aHnnah Whitfield RCP - 05/30/2021 11:54 PM EST Pt requesting to take bipap off due to unable to tolerate. Driving Teacher took bipap mask off and left pt on room air. RN made aware. Will continue to monitor. * Ivy Yin RN - 05/30/2021 9:36 PM EST Driving Teacher at bedside for shift assessment. Patient sitting [...] Cárdenas PT - 05/30/2021 3:33 PM EST [facility] Inpatient/Observation/Outpatient Rehabilitation Date: 05/30/2021 Patient Name: Piotr [...] 05/30/2021 2:40 PM EST Occupational Therapy Facility/Department: [facility] MED SURG Daily Treatment Note NAME: [...] past medical history of Cerebrovascular accident (CVA) ([facility]), Chronic pain, Essential hypertension, H/O heart artery stent, computer terminal operator (current) use of insulin ([facility]), and Type 2 diabetes mellitus without complication ([facility]). has a past surgical history that includes [...] stents placed in 2013 or 2015 in [place] at [facility]. He also has a history of hypertension and high cholesterol over the past 5-7 years. He also notes he is a diabetic and uses insulin 3 times per day. He had a stroke in June 2020, he was seen and evaluated at [facility]. Since his storke he has had continues [...] is currently waiting to be transferred to [facility] post cardiac cath yesterday. He is awaiting [...] Medical History: Diagnosis Date Cerebrovascular accident (CVA) ([facility]) Chronic pain Essential hypertension H/O heart artery stent USP (current) use of insulin ([facility]) Type 2 diabetes mellitus without complication ([facility]) CURRENT ALLERGIES: Patient has no known allergies. REVIEW OF SYSTEMS: 14 systems were reviewed. Pertinent positives and negatives as above, all else negative. Past Surgical History: Procedure Laterality Date CARDIAC CATHETERIZATION 05/29/2021 Dr Mars/[facility]/right radial-Severe three vessel coronary artery disease [...] NatRelief 11 Cholecalciferol (VITAMIN D3) 1.25 MG (44216 UT) CAPS Take 1 capsule by mouth [...] ventricular end diastolic pressure. Awaiting transfer to [facility] for stents Antiplatelet Agent: Continue Aspirin 81 [...] to be done. Chronic systolic heart failure: Bert[place] Heart Association Class: IV (Severe limitations, symptoms [...] and follow up Sincerely, Beata Harris PA-C [facility] [employer] [address] [place] [address] , I believe that the risk of [...] by Nathalie RAINES. 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 * hypoxia- oxygen,resume lasix 40 mg daily Nutrition status: Well developed, well nourished with no malnutrition DVT prophylaxis: Lovenox High risk medications: none Disposition: Discharge plan is transfer to [facility] Lamont Vasquez MD , M.D. 05/30/2021 [...] in place. Will continue to monitor. 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 * Nutrition status: Well developed, well nourished with no malnutrition DVT prophylaxis: Lovenox High risk medications: none Disposition: Discharge plan is transfer to [facility] Lamont Vasquez MD , M.D. 05/29/2021 3:34 PM * Rashel Cárdenas, PT - 05/29/2021 2:25 PM EST Physical Therapy Facility/Department: [facility] MED [facility] Daily Treatment Note NAME: Piotr Kerr : 1960 Date of Service: 05/29/2021 Discharge Recommendations: Continue to assess pending progress Assessment Treatment Diagnosis: general weakness, unsteady gait Prognosis: Good Activity Tolerance Activity Tolerance: Patient Tolerated treatment well Patient Diagnosis(es): There were no encounter diagnoses. has a past medical history of Cerebrovascular accident (CVA) ([facility]), Chronic pain, Essential hypertension, H/O heart artery stent, computer terminal operator (current) use of insulin (HCC), and Type 2 diabetes mellitus without complication (HCC). has a past surgical history that includes Cardiac catheterization (05/29/2021). Restrictions Restrictions/Precautions Restrictions/Precautions: General Precautions,Fall Risk Subjective General Chart Reviewed: Yes Additional Pertinent Hx: CVA affect L side Response To Previous Treatment: Not applicable Family / Caregiver Present: Yes Referring Practitioner: Dr. Vsaquez Subjective Subjective: pt reports Left leg cramps [...] 05/29/2021 12:03 PM EST Occupational Therapy Facility/Department: [facility] Daily Treatment Note NAME: [...] pain, Essential hypertension, H/O heart artery stent, USP (current) use of insulin (HCC), and Type [...] 10:15 AM EST Pt. Arrived back to [facility] [address] via wheelchair. Pt. Alert and oriented and x4. Pressure dressing clean dry and intact on right wrist with good cap refill to fingers. Pt. Denies any needs at this time. Assessment completed. Vitals obtained. Will continue to monitor. * Myrna Mayen RN - 05/29/2021 9:45 AM EST Called [facility] to initiate transfer to [facility]. Patient is referred to CT Surgeon for PCI per Dr. Mars. * Kena Rose RN - 05/29/2021 9:14 AM EST Vital signs stable. Dressing to access site clean and dry. Resting quietly with eyes closed, respirations easy. Waiting on response from interventionalist. 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 Resting in bed comfortably, assessment completed. Vitals obtained. Pt. Denies any pain at this time. Driving Teacher educated patient on going down to slab lifting supervisor this am. Driving Teacher called and updated per patient request. Call [...] No discharge needs at this time Contact: [phone] * JEAN Hutton/Choco - 05/28/2021 12:12 PM EST Occupational Therapy Occupational Therapy Initial Assessment Date: 05/28/2021 Patient Name: Piotr Kerr : 1960 Date of Service: 05/28/2021 Discharge Recommendations: Continue to assess pending progress Assessment Performance deficits / Impairments: Decreased functional mobility ;Decreased ADL status;Decreased strength;Decreased balance;Decreased endurance Assessment: 60 y/o M [facility] for CAD. Patient presents with [...] past medical history of Cerebrovascular accident (CVA) ([facility]), Chronic pain, Essential hypertension, H/O heart artery stent, computer terminal operator (current) use of insulin ([facility]), and Type 2 diabetes mellitus without complication ([facility]). has no past surgical history on file. [...] 05/28/2021 12:04 PM EST Physical Therapy Facility/Department: [facility] Initial Assessment NAME: Piotr [...] past medical history of Cerebrovascular accident (CVA) ([facility]), Chronic pain, Essential hypertension, H/O heart artery stent, USP (current) use of insulin (HCC), and Type [...] care. Would like options for home care, school social worker notified. * Hilda Retana - 05/28/2021 10:44 AM EST Echocardiogram/Doppler done at bedside. Instructed on policies and procedure. * ELOINA Dunaway - 05/28/2021 10:20 AM EST Discussed discharge plans with the patient. Patient is a 60 year old male here with Coronary arterydisease involving lime heart with angina pectoris and documented spasm [...] with medication costs. Patient served in the [employer]. The discharge is home with . He may need home health. He does not have advance directives. NURSERY TECHNICIAN to monitor and assist with any needs as they arise. Will follow up with the regarding any discharge needs. 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 Vasquez about patient complaining of muscle spasms in [...] noted. Call light given. [facility] Phone: [phone]) 808-614201-08-2022 Hospital course Narrative* Cassie Morejon, PYTHON ENGINEER - HYDRAULIC PRESS OPERATOR - 06/01/2021 8:43 AM EST Images from the original note were not included. 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 [...] with doppler with color Result Date: 05/28/2021 [facility] Transthoracic Echocardiography Report (TTE) Patient Name LAURA Date of Study 05/28/2021 PIOTR A Date of 1960 Gender Male Age 60 year(s) Race Room Number 0333 Height: 72 inch, 182.88 cm Corporate ID [id number] Weight: 231 pounds, 104.8 kg # Patient Acct [id number] BSA: 2.26 m^2 BMI: 31.33 # kg/m^2 MR # [id number] Ammunition Storage Superintendent Hilda Arango Interpreting Physician Alma Kan Fellow Referring Nurse Cassie Morejon, HYDRAULIC PRESS OPERATOR Practitioner Interpreting Referring Physician Fellow Type of Study TTE procedure:2D Echocardiogram, M-Mode, Doppler, ColorDoppler. Procedure Date Date: 05/28/2021 Start: 10:54 AM Study Location: [facility] Indic ations:Hypertension. History / Tech. 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 Read thedirections carefully, and ask your doctor or other care provider to review them with you. Where to Get Your Medications These medications were sent to [facility]/pharmacy #[id number] - [place], [place] - [address] [facility] - [phone] - F [phone] [address] [facility] [address] carvedilol 3.125 MG tablet cyclobenzaprine 10 MG [...] applicable) KIRIT/ARB in CHF: NA Statin in OR: NA ASA in OR: NA Statin in CVA: NA Antiplatelet in CVA: NA Total time spent on discharge services: 40 minutes Including the following activities: Evaluation and Management of patient Discussion with patient and/or surrogate about current care plan Coordination with Case Management and/or Oiler Helper Coordination of care with Consultants (if applicable) Coordination of care with Receiving Facility Physician (if applicable) Completion of DME forms (if applicable) Preparation of Discharge Summary Preparation of Medication Reconciliation Preparation of Discharge Prescriptions Signed: Cassie Morejon APRN - HYDRAULIC PRESS OPERATOR, TYRESE, REPAIRER RECREATIONAL VEHICLE-C 06/01/2021, 8:44 AM Associated attestation - Lamont Vasquez MD - 06/01/2021 12:37 PM EST Images from the original note were not included. I personally evaluated and examined the patient face to face in conjunction with the APC and agree with the management and disposition of the patient. 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 ([facility]) 05/27/2021 CHRIS (obstructive sleep apnea) 05/27/2021 Uncontrolled type 2 diabetes mellitus with hyperglycemia ([facility]) 07/29/2020 BPH with obstruction/lower urinary tract symptoms 07/25/2020 Incomplete emptying of bladder 07/25/2020 Additional Diagnoses: Diagnosis Date Cerebrovascular accident (CVA) ([facility]) Chronic pain Essential hypertension H/O heart artery stent USP (current) use of insulin ([facility]) Type 2 diabetes mellitus without complication (HCC) [...] with doppler with color Result Date: 05/28/2021 [facility] Transthoracic Echocardiography Report (TTE) Patient Name LAURA Date of Study 05/28/2021 PIOTR A Date of 1960 Gender Male Age 60 year(s) Race Room Number 0333 Height: 72 inch, 182.88 cm Corporate ID [id number] Weight: 231 pounds, 104.8 kg # Patient Acct [id number] BSA: 2.26 m^2 BMI: 31.33 # kg/m^2 MR # [id number] Ammunition Storage Superintendent Hilda Arango Interpreting Physician Alma Kan Fellow Referring Nurse Cassie Morejon, HYDRAULIC PRESS OPERATOR Practitioner Interpreting Referring Physician Fellow Type of Study TTE procedure:2D Echocardiogram, M-Mode, Doppler, ColorDoppler. Procedure Date Date: 05/28/2021 Start: 10:54 AM Study Location: [facility] Indic ations:Hypertension. History / Tech. Comments: Dx: [...] drug: Insulin Pen Needle * TechLite Pen [place] 31G X 8 MM Misc Generic drug: Insulin Pen Needle Vitamin D3 1.25 MG (74440 UT) Caps * This list has 2 medication(s) that are the same as other medications prescribed for you. Read thedirections carefully, and ask your doctor or other care provider to review them with you. Where to Get Your Medications These medications were sent to [facility]/pharmacy #[id number] - [address] - [phone] - F [phone] [place] [id number] carvedilol 3.125 MG tablet cyclobenzaprine 10 MG [...] Lamont Vasquez MD MD * Cassie Morejon, PYTHON ENGINEER - HYDRAULIC PRESS OPERATOR - 05/31/2021 1:47 PM EST Images from the original note were not included. 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 [...] with doppler with color Result Date: 05/28/2021 [facility] Transthoracic Echocardiography Report (TTE) Patient Name LAURA Date of Study 05/28/2021 PIOTR A Date of 1960 Gender Male Age 60 year(s) Race Room Number 0333 Height: 72 inch, 182.88 cm Corporate ID [id number] Weight: 231 pounds, 104.8 kg # Patient Acct [id number] BSA: 2.26 m^2 BMI: 31.33 # kg/m^2 MR # [id number] Ammunition Storage Superintendent Hilda Arango Interpreting Physician Alma Kan Fellow Referring Nurse Cassie Morejon, HYDRAULIC PRESS OPERATOR Practitioner Interpreting Referring Physician Fellow Type of Study TTE procedure:2D Echocardiogram, M-Mode, Doppler, ColorDoppler. Procedure Date Date: 05/28/2021 Start: 10:54 AM Study Location: [facility] Indic ations:Hypertension. History / Tech. 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 Read thedirections carefully, and ask your doctor or other care provider to review them with you. Where to Get Your Medications These medications were sent to [facility]/pharmacy #[id number] - [place], [place] - [address] [facility] - [phone] - F [phone] [place] [id number] carvedilol 3.125 MG tablet cyclobenzaprine 10 MG [...] applicable) KIRIT/ARB in CHF: NA Statin in OR: NA ASA in OR: NA Statin in CVA: NA Antiplatelet in CVA: NA Total time spent on discharge services: 40 minutes Including the following activities: Evaluation and Management of patient Discussion with patient and/or surrogate about current care plan Coordination with Case Management and/or Oiler Helper Coordination of care with Consultants (if applicable) Coordination of care with Receiving Facility Physician (if applicable) Completion of DME forms (if applicable) Preparation of Discharge Summary Preparation of Medication Reconciliation Preparation of Discharge Prescriptions Signed: Cassie Morejon APRN - HYDRAULIC PRESS OPERATOR, TYRESE REPAIRER RECREATIONAL VEHICLEGeremiasC 05/31/2021, 1:47 PM Associated attestation - Lamont Vasquez MD - 05/31/2021 3:17 PM EST Images from the original note were not included. I personally evaluated and examined the patient face to face in conjunction with the APC and agree with the management and disposition of the patient. 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 ([facility]) 05/27/2021 CHRIS (obstructive sleep apnea) 05/27/2021 Uncontrolled type 2 diabetes mellitus with hyperglycemia ([facility]) 07/29/2020 BPH with obstruction/lower urinary tract symptoms 07/25/2020 Incomplete emptying of bladder 07/25/2020 Additional Diagnoses: Diagnosis Date Cerebrovascular accident (CVA) ([facility]) Chronic pain Essential hypertension H/O heart artery stent USP (current) use of insulin ([facility]) Type 2 diabetes mellitus without complication ([facility]) Review of Systems: Constitutional: negative for fevers [...] The patient was admitted for the above. Piort Kerr is a 60 y.o. male admitted [...] with doppler with color Result Date: 05/28/2021 [facility] Transthoracic Echocardiography Report (TTE) Patient Name LAURA Date of Study 05/28/2021 PIOTR A Date of 1960 Gender Male Age 60 year(s) Race Room Number 0333 Height: 72 inch, 182.88 cm Corporate ID [id number] Weight: 231 pounds, 104.8 kg # Patient Acct [id number] BSA: 2.26 m^2 BMI: 31.33 # kg/m^2 MR # [id number] Ammunition Storage Superintendent Hilda Arango Interpreting Physician Alma Kan Fellow Referring Nurse Cassie Morejon, HYDRAULIC PRESS OPERATOR Practitioner Interpreting Referring Physician Fellow Type of Study TTE procedure:2D Echocardiogram, M-Mode, Doppler, ColorDoppler. Procedure Date Date: 05/28/2021 Start: 10:54 AM Study Location: [facility] Indic ations:Hypertension. History / Tech. Comments: Dx: [...] 0.78 (L) 1.10 - 3.70 k/uL Absolute [place] # 0.87 0.10 - 1.20 k/uL Absolute [...] ms QTc Calculation (Bazett) 441 ms P Nogal 27 degrees R Nogal -15 degrees T Nogal -82 degrees Glucose, Whole Blood Collection Time: [...] drug: Insulin Pen Needle * TechLite Pen [place] 31G X 8 MM Misc Generic drug: Insulin Pen Needle Vitamin D3 1.25 MG (78288 UT) Caps * This list has 2 medication(s) that are the same as other medications prescribed for you. Read thedirections carefully, and ask your doctor or other care provider to review them with you. Where to Get Your Medications These medications were sent to [facility]/pharmacy #[id number] - [place], [place] - [address] [place] [address] - P [phone] - F [phone] [place] [address] carvedilol 3.125 MG tablet cyclobenzaprine 10 MG [...] Lamont Vasquez MD MD documented in this [facility] [employer] Phone: [phone]) 760-390601-05-2022 Hospital Discharge instructions* Instructions* Kae Goodrich RN - 05/29/2021 Arrive at [facility] by 11:00 AM on 06/03/21 for the Heart Catheterization at 12:00 PM. Nothing to eat or drink after Midnight 1/10/22. Maintain Diaz catheter. Follow up with Dr. Ferrer (Urologist) next week. --A message was left with them to contact you for an appointment, if you do not hear from them by Thursday, call office at [phone]. * Attachments The following attachments cannot be sent through Care Everywhere. * CAD (Coronary Artery Disease): General Info (Albanian) documented in this encounterContractually Phone: 1(361) 985-711312-01-2021 History of Present illness Narrative* Gopi Mcelroy - 04/24/2021 8:00 PM EST Piotr arrived with on time for his Diagnostic Sleep Study. stayed for setup, and will return to pick Piotr up in morning. Setup, and polysomnogram progressed successfully. documented in this encounterContractually Phone: 1([phone]) 462-746802-01-2020 History general Narrative - Reported* Type Description [...] he was younger. Hospitalization History STROKE 06/2019 [facility] [employer] Other 02-01-2020 History general Narrative - Reported* [...] he was younger. 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 [...] without residual deficits documented in this encounter [employer] Phone: evaluation note* Diagnosis Uricaciduria Other nonspecific finding on examination of urine documented in this encounter [employer] Phone: evaluation noteNo assessment information available [facility] Work Phone: Evaluation note* Diagnosis Incomplete emptying of bladder Incomplete bladder emptying documented in this encounter [facility] Phone: [email or web address] note* Diagnosis Incomplete emptying of bladder Incomplete bladder emptying Prostate cancer screening Special screening for malignant neoplasm of prostate S/P angioplasty with stent Postsurgical percutaneous transluminal coronary angioplasty status Chronic systolic heart failure (HCC) Chronic systolic heart failure Shortness of breath Coronary artery disease involving lime coronary artery of lime heart with angina pectoris with documented spasm (HCC) Intermittent claudication (HCC) Peripheral vascular disease, unspecified Primary hypertension Unspecified essential hypertension Mixed hyperlipidemia CHRIS (obstructive sleep apnea) Obstructive sleep apnea (adult) (pediatric) Stage 3 chronic kidney disease, unspecified whether stage 3a or 3b CKD (HCC) Primary hyperparathyroidism (HCC) Primary hyperparathyroidism Adenoma of left adrenal gland Benign neoplasm of adrenal gland documented in this encounter [facility] Phone: evaluation note* Diagnosis Incomplete bladder emptying documented in this encounter [facility] Phone: [email or web address] note* Diagnosis BPH with obstruction/lower urinary tract symptoms Hypertrophy of prostate with urinary obstruction and other lower urinary tract symptoms (LUTS) Incomplete emptying of bladder Incomplete bladder emptying Frequency of urination Urinary frequency Urgency of micturition Enlarged prostate with urinary obstruction Hypertrophy of prostate with urinary obstruction and other lower urinary tract symptoms (LUTS) documented in this encounter [facility] Phone: evaluation note* Diagnosis BPH with obstruction/lower urinary tract symptoms Hypertrophy of prostate with urinary obstruction and other lower urinary tract symptoms (LUTS) Incomplete emptying of bladder Incomplete bladder emptying Frequency of urination Urinary frequency Urgency of micturition Enlarged prostate with urinary obstruction Hypertrophy of prostate with urinary obstruction and other lower urinary tract symptoms (LUTS) documented in this encounter [facility] Phone: [email or web address] note* Diagnosis Preop cardiovascular exam Pre-operative cardiovascular examination ASHD (arteriosclerotic heart disease) Coronary atherosclerosis of unspecified type of vessel, lime or graft S/P angioplasty with stent Postsurgical [...] tract symptoms (LUTS) documented in this encounter [facility] Phone: [email or web address] noteNo [employer] Other Evaluation note* Diagnosis BPH with obstruction/lower urinary tract symptoms- Primary Hypertrophy of prostate with urinary obstruction and other lower urinary tract symptoms (LUTS) documented in this encounter [facility] Phone: [email or web address] note* Diagnosis BPH with obstruction/lower urinary tract symptoms Hypertrophy of prostate with urinary obstruction and other lower urinary tract symptoms (LUTS) Post-operative state Other postprocedural status documented in this encounter [facility] Phone: evaluation note* Diagnosis Dyspnea on exertion Other dyspnea and respiratory abnormality documented in this encounter [facility] note* Diagnosis Screening PSA (prostate specific antigen) Special screening for malignant neoplasm of prostate Incomplete emptying of bladder Incomplete bladder emptying documented in this encounter [employer] note* Diagnosis Onset Date Resolution Status ASHD (arteriosclerotic heart disease) acute Cerebral atherosclerosis acu te Chronic kidney disease acute Chronic venous insufficiency of lower extremity acute Elevated cholesterol acute Hyperparathyroidism acute Hypertension acute Type 2 diabetes mellitus with hyperglycemia acute [facility] Work Phone: Evaluation note* Diagnosis BPH with obstruction/lower urinary tract symptoms- Primary Hypertrophy of prostate with urinary obstruction and other lower urinary tract symptoms (LUTS) [facility] Diagnosis Chronic diastolic heart failure (HCC) Chronic diastolic heart failure [facility]* Diagnosis CHRIS (obstructive sleep apnea)- Primary Obstructive sleep apnea (adult) (pediatric) Abnormal stress test Other nonspecific abnormal cardiovascular system function study Chest pain Chest pain, unspecified 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, unspecified vessel or lesion type (HCC) Constipation, unspecified constipation type [facility]* Diagnosis Onset Date Resolution Status [...] Type 2 diabetes mellitus with hyperglycemia acute [facility] Work Phone: Evaluation note* Diagnosis Critical [...] lower extremities (HCC) [facility]* Diagnosis Critical limb ischemia of both lower extremities (HCC) Bilateral lower leg cellulitis- Primary Cellulitis and abscess of leg, except foot Pain in left lower leg Critical limb ischemia of both lower extremities (HCC) documented [facility]* Diagnosis Acute on chronic diastolic (congestive) heart failure (HCC) ASHD (arteriosclerotic heart disease) Coronary atherosclerosis of unspecified type of vessel, lime or graft Essential hypertension Unspecified essential hypertension Mixed hyperlipidemia PAD (peripheral artery disease) ([facility]) Unspecified disorders of arteries and arterioles CHRIS (obstructive sleep apnea) Obstructive sleep apnea (adult) (pediatric) Obesity, unspecified class, unspecified obesity type, unspecified whether serious comorbidity present [facility]* Diagnosis Dermatophytosis of nail- Primary Dystrophic nail Other specified disease of nail Type II diabetes mellitus with peripheral circulatory disorder ([facility]) Type II or unspecified type diabetes mellitus with peripheral circulatory disorders, not stated as uncontrolled Diabetic polyneuropathy associated with type 2 diabetes mellitus ([facility]) [facility] Diagnosis Critical limb ischemia of both lower extremities (HCC) [facility]* Diagnosis Cellulitis of left foot- Primary Type II diabetes mellitus with peripheral circulatory disorder ([facility]) Type II or unspecified type diabetes mellitus with peripheral circulatory disorders, not stated as uncontrolled Diabetic polyneuropathy associated with type 2 diabetes mellitus ([facility]) Skin ulcer of midfoot region, left, limited to breakdown of skin ([facility]) documented [facility]* Diagnosis Acute on chronic diastolic (congestive) heart failure (HCC) ASHD (arteriosclerotic heart disease) Coronary atherosclerosis of unspecified type of vessel, lime or graft S/P angioplasty with stent Postsurgical [...] diastolic heart failure documented in this encounter [facility] note* Diagnosis Cellulitis of left foot- Primary Type II diabetes mellitus with peripheral circulatory disorder ([facility]) Type II or unspecified type diabetes mellitus with peripheral circulatory disorders, not stated as uncontrolled Diabetic polyneuropathy associated with type 2 diabetes mellitus (CMS/HCC) Skin ulcer of midfoot region, left, limited to breakdown of skin (CMS/HCC) documented [facility] this encounter [facility]* Diagnosis Dermatophytosis of nail- Primary Dystrophic nail Other specified disease of nail Type II diabetes mellitus with peripheral circulatory disorder (CMS/HCC) Type II or unspecified type diabetes mellitus with peripheral circulatory disorders, not stated as uncontrolled Diabetic polyneuropathy associated with type 2 diabetes mellitus (CMS/HCC) documented [facility]* Diagnosis Gangrene of toe of both feet (HCC)- Primary Eschar of toe Unspecified local infection of skin and subcutaneous tissue Critical limb ischemia of both lower extremities (HCC) [facility]* Diagnosis Acute renal failure superimposed on chronic kidney disease, unspecified acute renal failure type, unspecified CKD stage- Primary Dehydration documented [facility] this encounter [facility]* Diagnosis Chronic ulcer of great toe of right foot with fat layer exposed (HCC)- Primary Eschar of toe Unspecified local infection of skin and subcutaneous tissue Critical limb ischemia of both lower extremities Gangrene of toe of both feet (HCC) [facility]* Diagnosis Eschar of toe Unspecified local infection of skin and subcutaneous tissue Chronic ulcer of great toe of right foot with fat layer exposed (HCC) documented in this encounter [facility]* Diagnosis Chronic ulcer of great toe of right foot with fat layer exposed (HCC)- Primary Critical limb ischemia of both lower extremities [facility]* Diagnosis Chronic ulcer of great toe of right foot with fat layer exposed (HCC) documented [facility] this encounter [facility]* Diagnosis Chronic ulcer of great toe of right foot with fat layer exposed (HCC)- Primary Diabetic ulcer of right great toe (HCC) Type II or unspecified type diabetes mellitus with other specified manifestations, not stated as uncontrolled [facility]* Diagnosis Screening PSA (prostate specific antigen) Special screening for malignant neoplasm of prostate [facility] encounter [facility]* Diagnosis Acute on chronic diastolic (congestive) heart failure (HCC) ASHD (arteriosclerotic heart disease) Coronary atherosclerosis of unspecified type of vessel, lime or graft S/P angioplasty with stent Postsurgical percutaneous transluminal coronary angioplasty status Essential hypertension Unspecified essential hypertension Mixed hyperlipidemia PAD (peripheral artery disease) Unspecified disorders of arteries and arterioles CHRIS (obstructive sleep apnea) Obstructive sleep apnea (adult) (pediatric) Stage 3a chronic kidney disease ([facility]) [facility]* Diagnosis Chronic ulcer of great toe of right foot with fat layer exposed (HCC) Diabetic ulcer of right great toe (HCC) Type II or unspecified type diabetes mellitus with other specified manifestations, not stated as uncontrolled [facility]* Diagnosis Osteomyelitis of great toe of right foot (HCC)- Primary Critical limb ischemia of both lower extremities (HCC) Infection of toe Unspecified local infection of skin and subcutaneous tissue Chronic ulcer of great toe of right foot with fat layer exposed (HCC) documented [facility]* Diagnosis Dermatophytosis of nail- Primary Dystrophic nail Other specified disease of nail Type II diabetes mellitus with peripheral circulatory disorder (HCC) Type II or unspecified type diabetes mellitus with peripheral circulatory disorders, not stated as uncontrolled Diabetic polyneuropathy associated with type 2 diabetes mellitus ([facility]) documented in this encounter [facility]* Diagnosis Osteomyelitis of great toe of right foot (HCC)- Primary Acute osteomyelitis of right foot (HCC) Acute osteomyelitis, ankle and foot Open wound of toe(s) Non-healing open wound of toe Open wound of toe(s), complicated [facility]* Diagnosis Orthopedic aftercare- Primary Unspecified orthopedic aftercare History of amputation of right great toe [facility]* Diagnosis Orthopedic aftercare- Primary Unspecified orthopedic aftercare History of amputation of right great toe [facility]* Diagnosis Critical limb ischemia of both lower extremities (HCC)- Primary Eschar of toe Unspecified local infection of skin and subcutaneous tissue Gangrene of toe of both feet ([facility]) documented [facility] encounter [facility]* Diagnosis Onset Date Resolution Status [...] 2024 1:53pm Wellness examination noneactive 2024 1:53pm [facility] Work Phone: reason for referral (narrative)No reason for referral [facility] Work Phone: Rezbtl for visit Narrative* Auth/Cert Specialty Diagnoses / Procedures Referred By Contac t Referred To Contact Diagnoses Hypotension Benign essential HTN Lamont Vasquez MD [address] [facility] [address] [place] [address] [facility] [address] [place] [address] Referral ID Status Reason Start Date Expiration Date Visits Re quested Visits Authorized [id number] 1 1 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) Procedures MRI FOOT RIGHT WO CONTRAST Quincy Penn DPM [address] [place] [address] [address] [address] Phone: tel: fax: Referral ID Status Reason Start Date Expiration Date V isits Requested Visits Authorized [id number] Not Required - RTA 10/04/2024 10/04/2025 1 1 [facility] DelphiReason for visit Narrative* Auth/Cert Specialty Diagnoses / Procedures Referred By Contdimitri t Referred To Contact Diagnoses Acute osteomyelitis of right foot (HCC) osteomyelitis with complicated wound right foot and hallux Procedures NM AMPUTATION TOE METATARSOPHALANGEAL JOINT TOE AMPUTATION-big toe right, flap closure of right foot Quincy Penn DPM [address] [facility] [address] [place] [address] Phone: tel: fax: [facility] [employer] [address] [place] [address] Referral ID Status Reason Start Date Expiration Date Visits Re quested Visits Authorized [id number] 1 1 [employer] Diagnosis BPH with obstruction/lower urinary tract [...] Agents on File Name Relationship Healthcare Agent [facility] p Communication Mary Kerr Spouse Primary [...] Mary Baldetti Spouse Primary Decision Maker [phone] (Home) Jeff Baldetti Child Secondary Decision Make r Healthcare Agents on File Name Relationship Healthcare Agent Relationshi p Communication Mary Baldetti Spouse Primary Decision Maker [phone] (Home) Jeff Baldetti Child Secondary Decision Make r Healthcare Agents on File Name Relationship Healthcare Agent Relationshi p Communication Mary Baldetti Spouse Primary Decision Maker [phone] (Home) Jeff Baldetti Child Secondary Decision Make r Healthcare Agents on File Name Relationship Healthcare Agent Relationshi p Communication Mary Baldetti Spouse Primary Decision Maker [phone] (Home) Jeff Baldetti Child Secondary Decision Make r Healthcare Agents on File Name Relationship Healthcare Agent Relationshi p Communication Mary Baldetti Spouse Primary Decision Maker Jeff Baldetti Child Secondary Decision Make r Healthcare Agents on File Name Relationship Healthcare Agent Relationshi p Communication Mary Baldetti Spouse Primary Decision Maker [phone] (Home) Jeff Baldetti Child Secondary Decision Make r Healthcare Agents on File Name Relationship Healthcare Agent Relationshi p Communication Mary Baldetti Spouse Primary Decision Maker [phone] (Home) Jeff Baldetti Child Secondary Decision Make r Healthcare Agents on File Name Relationship Healthcare Agent Relationshi p Communication Mary Baldetti Spouse Primary Decision Maker [phone] (Home) Jeff Baldetti Child Secondary Decision Make [...] Documents on File Type Date Recorded Patient Planer Feeder Expl anation ACP-Advance Directive 02/25/2024 4:17 PM [...] Documents on File Type Date Recorded Patient Planer Feeder Expl anation ACP-Advance Directive 02/25/2024 4:17 PM [...] Mary Baldetti Spouse Primary Decision Maker [phone] (Home) Jeff Baldetti Child Secondary Decision Make r Stephn Baldetti Child Supplemental (Ot her) Decision Maker Healthcare Agents on File Name Relationship Healthcare Agent Relationship Communication Mary Baldetti Spouse Primary Decision Maker [phone] (Home) Jeff Baldetti Child Secondary Decision Make r Stephn Baldetti Child Supplemental (Ot her) Decision Maker Healthcare Agents on File Name Relationship Healthcare Agent Relationship Communication Mary Baldetti Spouse Primary Decision Maker [phone] (Home) Jeff Baldetti Child Secondary Decision Make r Stephn Baldetti Child Supplemental (Ot her) Decision Maker Healthcare Agents on File Name Relationship Healthcare Agent Relationship Communication Mary Baldetti Spouse Primary Decision Maker [phone] (Home) Jeff Baldetti Child Secondary Decision Make r Stephn Baldetti Child Supplemental (Ot her) Decision Maker Healthcare Agents on File Name Relationship Healthcare Agent Relationship Communication Mary Baldetti Spouse Primary Decision Maker [phone] (Home) Jeff Baldetti Child Secondary Decision Make [...] None CHG CT SCAN,ABDOMENT AND PELVIS,W/O CONTRAST 38188 - CHG CT SCAN,ABDOMENT AND PELVIS,W/O CONTRAST Arabella Dyer PA-C [address] [facility] [address] [place] [address] Referral ID Status Reason Start Date Expiration Date Visits Re quested Visits Authorized [id number] Closed 09/09/2021 10/24/2021 1 1 Specialty Diagnoses / Procedures Referred By Contac t Referred To Contact Radiology Diagnoses Incomplete bladder emptying Procedures US RENAL COMPLETE Arabella Dyer PA-C [address] [place] [address] [address] [place] [address] Referral ID Status Reason Start Date Expiration Date Visits Re quested Visits Authorized [id number] Closed 05/20/2022 05/20/2023 1 1 Specialty Diagnoses / Procedures Referred By Contac t Referred To Contact Cardiology Diagnoses BPH with obstruction/lower urinary tract symptoms Incomplete emptying of bladder Frequency of urination Urgency of micturition Procedures EKG 12 Lead Akira Ferrer MD [address] [facility], [address] [place] [address] Referral ID Status Reason Start Date Expiration Date Visits Re quested Visits Authorized [id number] Open 05/30/2022 05/30/2023 1 1 Specialty Diagnoses [...] test, lexiscan CHG MYOCARDIAL SPECT MULTIPLE STUDIES 50441 - CHG MYOCARDIAL SPECT MULTIPLE STUDIES Alma Kan MD [address] [place] [phone] Referral ID Status Reason Start Date Expiration Date Visits Re quested Visits Authorized [id number] Closed 07/10/2022 08/24/2022 1 1 Specialty Diagnoses [...] Echo 2D w doppler w color complete NM ECHO TTHRC R-T 2D W/WOM-MODE COMPL SPEC&COLR D 66241 - NM ECHO TTHRC R-T 2D W/WOM-MODE COMPL SPEC&COLR D Alma Kan MD [address] [place] [address] Referral ID Status Reason Start Date Expiration Date V isits Requested Visits Authorized [id number] Authorized 07/10/2022 07/04/2023 3 3 Specialty Diagnoses / Procedures Referred By Bj fontenot Referred To Contact Thoracic Surgery / Cardiothoracic Surgery Diagnoses 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 [place], Cardiovascular Surgery Comments The patient can be [...] and content) DATE CREATED AUTHOR 08/30/2020 Baltazar [address] [facility] DATE CREATED AUTHOR AUTHOR'S ORGANIZ ATION 06/24/2021 Priscilla Noriega spiaziza DATE CREATED AUTHOR AUTHOR'S ORGANIZ ATION 11/02/2022 [facility] DATE CREATED AUTHOR AUTHOR'S ORGANIZ ATION 11/14/2022 [facility] DATE CREATED AUTHOR AUTHOR'S ORGANIZ ATION 10/03/2024 [facility] DATE CREATED AUTHOR AUTHOR'S ORGANIZ ATION 10/23/2024 [facility] DATE CREATED AUTHOR AUTHOR'S ORGANIZ ATION 11/12/2024 [facility] EPIC DATE CREATED AUTHOR AUTHOR'S ORGANIZ ATION 12/30/2024 [facility] Reason for Visit (unrecogniz ed section and content) Specialty Diagnoses / Procedures Referred By Contac t Referred To Contact Sleep Center Diagnoses Obstructive sleep apnea (adult) (pediatric) Procedures NM POLYSOM 6/>YRS SLEEP 4/> ADDL INGA ATTND [facility] [address] [place] [address] [facility] [address] [place] [address] Referral ID Status Reason Start Date Expiration Date V isits Requested Visits Authorized [id number] Authorized 04/23/2021 04/24/2022 1 1 Specialty Diagnoses / Procedures Referred By Contac t Referred To Contact Radiology Diagnoses Uricaciduria R82.998 (ICD-10-CM) - Uricacid[facility] Procedures CT ABDOMEN PELVIS WO CONTRAST Additional Contrast? None CHG CT SCAN,ABDOMENT AND PELVIS,W/O CONTRAST [id number] - CHG CT SCAN,ABDOMENT AND PELVIS,W/O CONTRAST Arabella Dyer PA-C [address] [facility] [address] [place] [address] [place] [address] Referral ID Status Reason Start Date Expiration Date Visits Re quested Visits Authorized [id number] Closed 09/09/2021 10/24/2021 1 1 Specialty Diagnoses / Procedures Referred By Contac t Referred To Contact Cardiology Diagnoses Abnormal stress test Procedures Referral to Cardiac Cath Alma Kan MD [address] [place] [address] [place] [address] Referral ID Status Reason Start Date Expiration Date Visits Re quested Visits Authorized [id number] Closed 05/29/2021 11/24/2021 1 1 Specialty Diagnoses / Procedures Referred By Contac t Referred To Contact Radiology Diagnoses Incomplete bladder emptying Procedures US RENAL COMPLETE Arabella Dyer PA-C [address] [facility] [place] [address] Referral ID Status Reason Start Date Expiration Date Visits Re quested Visits Authorized [id number] Closed 05/20/2022 05/20/2023 1 1 Specialty Diagnoses [...] test, lexiscan CHG MYOCARDIAL SPECT MULTIPLE STUDIES [id number] - CHG MYOCARDIAL SPECT MULTIPLE STUDIES Alma Kan MD [address] [facility] [place] [address] Referral ID Status Reason Start Date Expiration Date Visits Re quested Visits Authorized [id number] Closed 07/10/2022 08/24/2022 1 1 Specialty Diagnoses [...] Echo 2D w doppler w color complete NM ECHO TTHRC R-T 2D W/WOM-MODE COMPL SPEC&COLR D 72123 - NM ECHO TTHRC R-T 2D W/WOM-MODE COMPL SPEC&COLR D Alma Kan MD [address] [place] [phone] Referral ID Status Reason Start Date Expiration Date V isits Requested Visits Authorized [id number] Authorized 07/10/2022 07/04/2023 3 3 Specialty Diagnoses / Procedures [facility] Referred To Contact Diagnoses 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, LOWER URINARY TRACT SYMPTOMS Procedures NM LASER VAPORIZATION OF PROSTATE FOR URINE FLOW CYSTOSCOPY TRANSURETHRAL RESECTION PROSTATE LASER-PVP GREENLIGHT Akira Ferrer MD [address] [facility], [address] [place] [address] [facility] [address] [place] [address] Referral ID Status Reason Start Date Expiration Date Visits Re quested Visits Authorized [id number] 1 1 Specialty Diagnoses / Procedures Referred By Contac t Referred To Contact Radiology Diagnoses Primary hyperparathyroidism (HCC) Hypercalcemia Essential (primary) hypertension Chronic kidney disease, stage II (mild) Procedures NM PARATHYORID W SPECT Iboaya, Benahili U, DO [address] [place] [address] Referral ID Status Reason Start Date Expiration Date Visits Re quested Visits Authorized [id number] Closed 01/15/2023 03/01/2023 1 1 Specialty Diagnoses / Procedures Referred By Contac t Referred To Contact Diagnoses BPH with obstruction/lower urinary tract symptoms BPH with obstruction/lower urinary tract symptoms [N40.1, N13.8] Procedures NM LASER VAPORIZATION OF PROSTATE FOR URINE FLOW CYSTOSCOPY TRANSURETHRAL RESECTION PROSTATE LASER-PVP Akira Nobles MD [address] [facility], [address] [place] [address] [facility] [address] [place] [address] Referral ID Status Reason Start Date Expiration Date Visits Re quested Visits Authorized [id number] 1 1 Specialty Diagnoses / Procedures Referred By Contac t Referred To Contact Diagnoses Abnormal stress test Chest pain CAD (coronary artery disease) Abnormal stress test [R94.39] Chest pain [R07.9] CAD (coronary artery disease) [I25.10] Procedures NM CATH PLMT L HRT & ARTS W/NJX & ANGIO IMG S&I Left heart cath / [place] [address] [facility] [address] [place] [address] [facility] [address] [place] [address] Referral ID Status Reason Start Date Expiration Date Visits Re quested Visits Authorized [id number] 1 1 Reason Comments Leg Swelling Both [...] venous insufficiency Fred Villegas MD [address] [place] [address] [facility] [address] [place] [address] Referral ID Status Reason Start Date Expiration Date Visits Re quested Visits Authorized [id number] 1 1 Reason Comments Foot Pain C/O [...] SS13. Specialty Diagnoses / Procedures Referred By Contdimitri t Referred To Contact Diagnoses Critical limb ischemia of both lower extremities (HCC) Procedures Vascular duplex lower extremity arteries bilateral Vascular duplex lower extremity arteries left Floyd Vee MD [address] [place] [address] [address] [place] [address] Referral ID Status Reason Start Date Expiration Date Visits Re quested Visits Authorized [id number] Open 03/16/2024 03/16/2025 1 1 Reason Comments [...] Right great toe Reason Comments Nail care Poitr Kerr is a 64 y.o. male, Established [...] Active Jorge Pritchett DO Attending Provider Active Office Machine Punch Operator Relationship Specialty Start Date End Date Jorge PritchettDO [address] [place] [address] PCP - General Internal Medicine 04/17/21 Office Machine Punch Operator Relationship Specialty Start Date End Date Jorge Pritchett DO [address] [place] [address] PCP - General Internal Medicine 04/17/21 Office Machine Punch Operator Relationship Specialty Start Date End Date YarelyJorge DO [address] [place] [address] PCP - General Internal Medicine 04/17/21 Office Machine Punch Operator Relationship Specialty Start Date End Date Jorge Pritchett, DO [address] [place] [address] PCP - General Internal Medicine 04/17/21 Office Machine Punch Operator Relationship Specialty Start Date End Date Jorge Pritchett, DO [address] [place] [address] PCP - General Internal Medicine 04/17/21 Office Machine Punch Operator Relationship Specialty Start Date End Date Jorge Pritchett, DO [address] [place] [address] PCP - General Internal Medicine 04/17/21 Office Machine Punch Operator Relationship Specialty Start Date End Date Jorge Pritchett, DO [address] [place] [address] PCP - General Internal Medicine 04/17/21 Office Machine Punch Operator Relationship Specialty Start Date End Date Jorge Pritchett, DO [address] [place] [address] PCP - General Internal Medicine 04/17/21 Office Machine Punch Operator Relationship Specialty Start Date End Date Jorge Pritchett, DO [address] [place] [address] PCP - General Internal Medicine 04/17/21 Office Machine Punch Operator Relationship Specialty Start Date End Date Jorge Pritchett, DO [address] [place] [address] PCP - General Internal Medicine 04/17/21 Office Machine Punch Operator Relationship Specialty Start Date End Date Jorge Pritchett, DO [address] [place] [address] PCP - General Internal Medicine 04/17/21 Office Machine Punch Operator Relationship Specialty Start Date End Date Jorge Pritchett, DO [address] [place] [address] PCP - General Internal Medicine 04/17/21 Office Machine Punch Operator Relationship Specialty Start Date End Date Jorge Pritchett, DO [address] [facility] [place] [address] PCP - General Internal Medicine 04/17/21 Office Machine Punch Operator Relationship Specialty Start Date End Date Jorge Pritchett, DO [address] [facility] [place] [address] PCP - General Internal Medicine 04/17/21 Office Machine Punch Operator Relationship Specialty Start Date End Date Jroge Pritchett, DO [address] [facility] [place] [address] PCP - General Internal Medicine 04/17/21 Office Machine Punch Operator Relationship Specialty Start Date End Date Jorge Pritchett, DO [address] [facility] [place] [address] PCP - General Internal Medicine 04/17/21 Office Machine Punch Operator Relationship Specialty Start Date End Date Jogre Pritchett, DO [address] [facility] [place] [address] PCP - General Internal Medicine 04/17/21 Office Machine Punch Operator Relationship Specialty Start Date End Date Jorge Pritchett, DO [address] [facility] [place] [address] PCP - General Internal Medicine 04/17/21 Office Machine Punch Operator Relationship Specialty Start Date End Date Jorge Pritchett, DO [address] [facility] [place] [address] PCP - General Internal Medicine 04/17/21 Office Machine Punch Operator Relationship Specialty Start Date End Date Jorge Pritchett, DO [address] [facility] [place] [address] PCP - General Internal Medicine 04/17/21 Team Status: Inactive Member Role Status Dates Pia Douglass , MEEK-C Primary Care Provider Active Alma Kan MD Attending Provider Active Office Machine Punch Operator Relationship Specialty Start Date End Date Jorge Pritchett, DO [address] [facility] [place] [address] PCP - General Internal Medicine 04/17/21 Office Machine Punch Operator Relationship Specialty Start Date End Date Jorge Pritchett, DO [address] [place] [facility] [place] [address] PCP - General Internal Medicine 04/17/21 Office Machine Punch Operator Relationship Specialty Start Date End Date Jorge Pritchett, DO [address] [place] [facility] [place] [address] PCP - General Internal Medicine 04/17/21 Office Machine Punch Operator Relationship Specialty Start Date End Date Jorge Pritchett, DO [address] [place] [facility] [place] [address] PCP - General Internal Medicine 04/17/21 Office Machine Punch Operator Relationship Specialty Start Date End Date Jorge Pritchett, DO [address] [place] [facility] [place] [address] PCP - General Internal Medicine 04/17/21 Office Machine Punch Operator Relationship Specialty Start Date End Date Jorge Pritchett, DO [address] [place] [facility] [place] [address] PCP - General Internal Medicine 04/17/21 Office Machine Punch Operator Relationship Specialty Start Date End Date Jorge Pritchett, DO [address] [place] [facility] [place] [address] PCP - General Internal Medicine 04/17/21 Office Machine Punch Operator Relationship Specialty Start Date End Date Jorge Pritchett, DO [address] [place] [facility] [place] [address] PCP - General Internal Medicine 04/17/21 Office Machine Punch Operator Relationship Specialty Start Date End Date Jorge Pritchett, DO [address] [place] [address] PCP - General Internal Medicine 04/17/21 Office Machine Punch Operator Relationship Specialty Start Date End Date Jorge Pritchett, DO [address] [place] [address] PCP - General Internal Medicine 04/17/21 Office Machine Punch Operator Relationship Specialty Start Date End Date Jorge Pritchett, DO [address] [place] [address] PCP - General Internal Medicine 04/17/21 Office Machine Punch Operator Relationship Specialty Start Date End Date Jorge Pritchett, DO [address] [place] [address] PCP - General Internal Medicine 04/17/21 Office Machine Punch Operator Relationship Specialty Start Date End Date Jorge Pritchett, DO [address] [place] [address] PCP - General Internal Medicine 04/17/21 Office Machine Punch Operator Relationship Specialty Start Date End Date Jorge Pritchett, DO [address] [place] [address] PCP - General Internal Medicine 04/17/21 Office Machine Punch Operator Relationship Specialty Start Date End Date Jorge Pritchett, DO [address] [place] [address] PCP - General Internal Medicine 04/17/21 Office Machine Punch Operator Relationship Specialty Start Date End Date Jorge Pritchett, DO [address] [place] [address] PCP - General Internal Medicine 04/17/21 Office Machine Punch Operator Relationship Specialty Start Date End Date Jorge Pritchett, DO [address] [place] [address] PCP - General Internal Medicine 04/17/21 Office Machine Punch Operator Relationship Specialty Start Date End Date Yarely Jorge, DO [address] [place] [facility] [place] [address] PCP - General Internal Medicine 04/17/21 Office Machine Punch Operator Relationship Specialty Start Date End Date Jorge Pritchett, DO [address] [place] [facility] [place] [address] PCP - General Internal Medicine 04/17/21 Office Machine Punch Operator Relationship Specialty Start Date End Date Jorge Pritchett, DO [address] [place] [facility] [place] [address] PCP - General Internal Medicine 04/17/21 Office Machine Punch Operator Relationship Specialty Start Date End Date Jorge Pritchett DO [address] [place] [facility] [place] [address] PCP - General Internal Medicine 04/17/21 Office Machine Punch Operator Relationship Specialty Start Date End Date Jorge Pritchett DO [address] [place] [facility] [place] [address] PCP - General Internal Medicine 04/17/21 Office Machine Punch Operator Relationship Specialty Start Date End Date Jorge Pritchett DO [address] [place] [facility] [place] [address] PCP - General Internal Medicine 04/17/21 Office Machine Punch Operator Relationship Specialty Start Date End Date Jorge Pritchett DO [address] [place] [facility] [place] [address] PCP - General Internal Medicine 04/17/21 Office Machine Punch Operator Relationship Specialty Start Date End Date Jorge Pritchett DO [address] [facility] [place] [address] PCP - General Internal Medicine 04/17/21 Office Machine Punch Operator Relationship Specialty Start Date End Date Jorge Pritchett DO [address] [facility] [place] [address] PCP - General Internal Medicine 04/17/21 Office Machine Punch Operator Relationship Specialty Start Date End Date Jorge Pritchett DO [address] [place] [facility] [place] [address] PCP - General Internal Medicine 04/17/21 Office Machine Punch Operator Relationship Specialty Start Date End Date Jorge Pritchett DO [address] [place] [facility] [place] [address] PCP - General Internal Medicine 04/17/21 Team Status: Inactive Member Role Status Dates Jorge Pritchett DO Primary Care Provide r, Attending Provider Active Start: November 10, 2023 End: November 10, 2023 Team Status: Inactive Member Role Status Dates Jorge Pritchett DO Primary Care Provide r, Attending Provider Active Start: February 03, 2024 End: February 03, 2024 Office Machine Punch Operator Relationship Specialty Start Date End Date Jorge Pritchett DO [address] [facility] [place] [address] PCP - General Internal Medicine 04/17/21 Office Machine Punch Operator Relationship Specialty Start Date End Date Jorge Pritchett DO [address] [place] [facility] [place] [address] PCP - General Internal Medicine 04/17/21 Office Machine Punch Operator Relationship Specialty Start Date End Date Jorge Pritchett DO [address] [place] [facility] [place] [address] PCP - General Internal Medicine 04/17/21 Office Machine Punch Operator Relationship Specialty Start Date End Date Jorge Pritchett MD [address] [place] [facility] [place] [address] PCP - General Internal Medicine 02/13/23 Office Machine Punch Operator Relationship Specialty Start Date End Date Jorge Pritchett MD [address] [place] [facility] [place] [address] PCP - General Internal Medicine 02/13/23 Office Machine Punch Operator Relationship Specialty Start Date End Date Jorge Pritchett DO [address] [place] [facility] [place] [address] PCP - General Internal Medicine 04/17/21 Office Machine Punch Operator Relationship Specialty Start Date End Date Jorge Pritchett DO [address] [place] [facility] [place] [address] PCP - General Internal Medicine 04/17/21 Office Machine Punch Operator Relationship Specialty Start Date End Date Jorge Pritchett MD [address] [place] [facility] [place] [address] PCP - General Internal Medicine 02/13/23 Office Machine Punch Operator Relationship Specialty Start Date End Date Jorge Pritchett MD [address] [place] [facility] [place] [address] PCP - General Internal Medicine 02/13/23 Office Machine Punch Operator Relationship Specialty Start Date End Date Jorge Pritchett DO [address] [place] [facility] [place] [address] PCP - General Internal Medicine 04/17/21 Office Machine Punch Operator Relationship Specialty Start Date End Date Jorge Pritchett MD [address] [place] [facility] [place] [address] PCP - General Internal Medicine 02/13/23 Office Machine Punch Operator Relationship Specialty Start Date End Date Jorge Pritchett DO [address] [place] [facility] [place] [address] PCP - General Internal Medicine 04/17/21 Office Machine Punch Operator Relationship Specialty Start Date End Date Jorge Pritchett DO [address] [place] [facility] [place] [address] PCP - General Internal Medicine 04/17/21 Office Machine Punch Operator Relationship Specialty Start Date End Date Jorge Pritchett DO [address] [place] [facility] [place] [address] PCP - General Internal Medicine 04/17/21 [...] July 12, 2024 End: July 12, 2024 Office Machine Punch Operator Relationship Specialty Start Date End Date Jorge Pritchett DO [address] [place] [facility] [place] [address] PCP - General Internal Medicine 04/17/21 Office Machine Punch Operator Relationship Specialty Start Date End Date Jorge Pritchett DO [address] [place] [facility] [place] [address] PCP - General Internal Medicine 04/17/21 Office Machine Punch Operator Relationship Specialty Start Date End Date Yarely Jorge [address] [place] [facility] [place] [address] PCP - General Internal Medicine 04/17/21 Office Machine Punch Operator Relationship Specialty Start Date End Date oJrge Pritchett DO [address] [place] [facility] [place] [address] PCP - General Internal Medicine 04/17/21 Office Machine Punch Operator Relationship Specialty Start Date End Date Jorge Pritchett DO [address] [place] [facility] [place] [address] PCP - General Internal Medicine 04/17/21 Office Machine Punch Operator Relationship Specialty Start Date End Date Jorge Pritchett DO [address] [place] [facility] [place] [address] PCP - General Internal Medicine 04/17/21 Office Machine Punch Operator Relationship Specialty Start Date End Date Jorge Pritchett DO [address] [place] [facility] [place] [address] PCP - General Internal Medicine 04/17/21 Team [...] September 21, 2024 End: September 21, 2024 Office Machine Punch Operator Relationship Specialty Start Date End Date Jorge Pritchett DO [address] [place] [facility] [place] [address] PCP - General Internal Medicine 04/17/21 Office Machine Punch Operator Relationship Specialty Start Date End Date Jorge Pritchett DO [address] [place] [facility] [place] [address] PCP - General Internal Medicine 04/17/21 Office Machine Punch Operator Relationship Specialty Start Date End Date Jorge Pritchett DO [address] [place] [facility] [place] [address] PCP - General Internal Medicine 04/17/21 Office Machine Punch Operator Relationship Specialty Start Date End Date Jorge Pritchett DO [address] [place] [facility] [place] [address] PCP - General Internal Medicine 04/17/21 Office Machine Punch Operator Relationship Specialty Start Date End Date Jorge Pritchett DO [address] [place] [facility] [place] [address] PCP - General Internal Medicine 04/17/21 Office Machine Punch Operator Relationship Specialty Start Date End Date Jorge Pritchett DO [address] [place] [facility] [place] [address] PCP - General Internal Medicine 04/17/21 Office Machine Punch Operator Relationship Specialty Start Date End Date Jorge Pritchett DO [address] [place] [facility] [place] [address] PCP - General Internal Medicine 02/13/23 Office Machine Punch Operator Relationship Specialty Start Date End Date Jorge Pritchett DO [address] [place] [facility] [place] [address] PCP - General Internal Medicine 02/13/23 Office Machine Punch Operator Relationship Specialty Start Date End Date Jorge Pritchett DO [address] [place] [address] PCP - General Internal Medicine 04/17/21 Office Machine Punch Operator Relationship Specialty Start Date End Date Jorge Pritchett DO [address] [place] [facility] [place] [address] PCP - General Internal Medicine 04/17/21 Office Machine Punch Operator Relationship Specialty Start Date End Date Jorge Pritchett DO [address] [place] [address] PCP - General Internal Medicine 04/17/21 Office Machine Punch Operator Relationship Specialty Start Date End Date Jorge Pritchett DO [address] [place] [address] PCP - General Internal Medicine [...] RN) 0819 (Given - Provider: Kae Goodrich RN)1641 (Given - Provider: Kae Goodrich [...] Goodrich RN) 0744 (Given - Provider: Jessica Arnago RN) furosemide (LASIX) tablet 40 mg 40 [...] Kae Goodrich, MIGUE) 1800 (Due - Provider: Selena Mckeon RN) Continuous Medication Order 05/30/2021 05/31/2021 [...] 100 mL IVPB (COMPLETED) 2,000 mg, IntraVENous, CONTRACT LAW SPECIALIST TO O.R., 1 dose, On Thu07/15/22 at 1115, Antimicrobial Indications: Surgical Prophylaxis, Administer within 1 hour prior to incision. Repeat in 2 hours after initial dose if still intra-op., Pre-op (day of surgery) 1247 (New Bag - Prov ider: Radha Oliva RN)1300 (Given - Provider: Celeste Valadez APRN - CHOIR LEADER)1317 (Due: Stopped - Provider: Radha Oliva RN) [...] (Paused - Provider: Celeste Valadez APRN - CHOIR LEADER - Comment: Switch to gravity)1249 (Restarted - Provider: Celeste Valadez APRN - CHOIR LEADER)1339 (Stopped - Provider: Celeste Valadez APRN - CHOIR LEADER)1500 (Stopped - Provider: Julissa Campbell RN) PRN [...] 0.9% 100 mL IVPB 3,000 mg, IntraVENous, CONTRACT LAW SPECIALIST TO O.R., 1 dose, On Thu11/03/23 at [...] parameters not met)1625 (Given - Provider: Chikis Carvjaal RN) 08 (Not Given - Provider: Citlali [...] sodium chloride 0.9 % 100 mL IVPB (Unnh4Duq) 1,000 mg, IntraVENous, at 33.3 mL/hr, Administer [...] mL IV syringe (COMPLETED) 2,000 mg, IntraVENous, CONTRACT LAW SPECIALIST TO O.R., 1 dose, On Thu11/11/24 at [...] (day of surgery) BUPivacaine-EPINEPHrine PF (MARCAINE-w/EPINEPHrine) 0.5% -[id number] injection (CANCELED) PRN, Starting on Thu11/11/24 at [...] BE BASED ON THE PRIMARY CLINICAL RECORDS. [facility] provides no warranty or guarantee of the accuracy or completeness of information in this document.
[2025-01-29 17:04] VITALS: BP 108/67; PULSE 84; TEMP 36.8; O2SAT 96; BMI 35.3
[2025-01-29] MEDS: 0.9 % SODIUM CHLORIDE 1,000 ML 75 ML IV (17:34)
[2025-01-29] MEDS: NYSTATIN 15 GM POWDER 1 APPLIC TOPICAL ×2 (17:34→21:51)
[2025-01-29 18:28] LABS: Lactate/Lactic Acid 2.9 mmol/L (0.4-2.0)
[2025-01-29 20:40] VITALS: BP 108/66; PULSE 83; TEMP 36.8; O2SAT 94
[2025-01-29] MEDS: PANTOPRAZOLE SODIUM 40 MG VIAL IV (20:44)
[2025-01-29] MEDS: CEFAZOLIN SODIUM/DEXTROSE,ISO 1 GM/50 ML PREMIX IV (20:44)
[2025-01-29] MEDS: BISACODYL 5 MG TABLET 10 MG PO (20:44)
[2025-01-29] MEDS: CARVEDILOL 12.5 MG TABLET PO (20:44)
[2025-01-29] MEDS: DOCUSATE SODIUM 100 MG CAPSULE 200 MG PO (20:45)
[2025-01-29] MEDS: ALLOPURINOL 100 MG TABLET PO (20:45)
[2025-01-29] MEDS: METOLAZONE 2.5 MG TABLET PO (20:45)
[2025-01-29] MEDS: FUROSEMIDE 40 MG TABLET 80 MG PO (20:45)
[2025-01-29] MEDS: OXYCODONE HCL 5 MG TABLET 2.5 MG PO (20:45)
[2025-01-29] MEDS: HEPARIN SODIUM (PORCINE) 5,000 UNIT/ML VIAL 5000 UNIT SUBQ (20:46)
[2025-01-29] MEDS: INSULIN ASPART 300 UNIT/3 ML PEN SUBQ (21:50)
[2025-01-29] MEDS: INSULIN GLARGINE 300 UNIT/3 ML INSULN.PEN 30 UNIT SQ (21:51)
[2025-01-29] MEDS: HYDROMORPHONE HCL 0.5 MG/0.5 ML SYRINGE 0.25 MG IV (23:32)
[2025-01-29 23:33] VITALS: BP 144/65; PULSE 83; TEMP 36.8; O2SAT 93
[2025-01-30] VITALS (12 sets, daily range): BP systolic 84–114; BP diastolic 48–66; PULSE 70–90; TEMP 36.6–37.4; O2SAT 81–95
[2025-01-30] MEDS: TIZANIDINE HCL 4 MG TABLET PO (02:26)
[2025-01-30 04:01] LABS: A. calcoaceticus-baumannii Cpx NOT DETECTED (NOT DETECTE); Bacteroides fragilis NOT DETECTED (NOT DETECTE); Candida auris NOT DETECTED (NOT DETECTE); Candida glabrata NOT DETECTED (NOT DETECTE); Enterococcus faecalis NOT DETECTED (NOT DETECTE); Enterococcus faecium NOT DETECTED (NOT DETECTE); Klebsiella aerogenes NOT DETECTED (NOT DETECTE); Klebsiella pneumoniae group NOT DETECTED (NOT DETECTE); Proteus spp. NOT DETECTED (NOT DETECTE); Salmonella spp. NOT DETECTED (NOT DETECTE); Staphylococcus epidermidis NOT DETECTED (NOT DETECTE); Staphylococcus lugdunensis NOT DETECTED (NOT DETECTE); Staphylococcus spp. NOT DETECTED (NOT DETECTE); Stenotrophomonas maltophilia NOT DETECTED (NOT DETECTE); Streptococcus pyogenes NOT DETECTED (NOT DETECTE); Streptococcus spp. NOT DETECTED (NOT DETECTE)
[2025-01-30] MEDS: CEFAZOLIN SODIUM/DEXTROSE,ISO 1 GM/50 ML PREMIX IV (04:28)
[2025-01-30] MEDS: OXYCODONE HCL 5 MG TABLET 2.5 MG PO ×3 (05:45→21:55)
[2025-01-30 05:48] LABS: CTX-M NOT DETECTED (NOT DETECTE); IMP NOT DETECTED (NOT DETECTE); KPC NOT DETECTED (NOT DETECTE); NDM NOT DETECTED (NOT DETECTE); OXA-48-like NOT DETECTED (NOT DETECTE); VIM NOT DETECTED (NOT DETECTE)
[2025-01-30] MEDS: NYSTATIN 15 GM POWDER 1 APPLIC TOPICAL ×3 (05:48→21:56)
[2025-01-30 05:49] LABS: Enterobacterales DETECTED (NOT DETECTE); Serratia marcescens DETECTED (NOT DETECTE); Source BLOOD
[2025-01-30 06:12] LABS: Hematocrit 34.3 % (42.0-54.0); Hemoglobin 11.4 g/dL (14.0-18.0); Immature Granulocytes Abs Auto 0.08 10^3/uL (0.00-0.03); Immature Granulocytes Pct Auto 0.5 % (0.0-0.5); Lymphocytes Absolute Auto 0.7 10^3/uL (1.2-3.8); Mean Corpuscular HGB Conc 33.2 g/dL (29.9-35.2); Mean Corpuscular Hemoglobin 30.1 pg (25.9-34.0); Mean Corpuscular Volume 90.5 fL (80.0-94.0); Platelet Count 234 10^3/uL (150-450); Red Blood Count 3.79 10^6/uL (4.70-6.10); White Blood Count 14.9 10^3/uL (4.0-11.0)
[2025-01-30 06:18] LABS: Anion Gap 15.0; Calcium 9.1 mg/dL (8.5-10.1); Carbon Dioxide 28.8 mmol/L (21.0-32.0); Chloride 99 mmol/L (98-107); Estimated GFR (African America 24 (>=60 mL/min/1.73m^2); Estimated GFR (Non-African Ame 20 (>=60 mL/min/1.73m^2); Glucose 167 mg/dL (74-106); Potassium 3.8 mmol/L (3.5-5.1); Sodium 139 mmol/L (136-145)
[2025-01-30 06:30] LABS: Blood Urea Nitrogen 76.0 mg/dL (7.0-18.0)
[2025-01-30 06:31] LABS: Lactate/Lactic Acid 2.2 mmol/L (0.4-2.0)
[2025-01-30] MEDS: ERTAPENEM SODIUM 0.5 GM in 0.9 % SODIUM CHLORIDE 50 ML IV (06:36)
[2025-01-30] MEDS: PANTOPRAZOLE SODIUM 40 MG VIAL IV (08:09)
[2025-01-30] MEDS: HEPARIN SODIUM (PORCINE) 5,000 UNIT/ML VIAL 5000 UNIT SUBQ ×3 (08:09→23:41)
[2025-01-30] MEDS: 0.9 % SODIUM CHLORIDE 1,000 ML 150 ML IV (08:09)
--- NOTE | 2025-01-30 08:12 | CM.NOTE ---
Rounds made with Dr. Bush, pt continues with pain to L lower leg and ankle. Plan of care discussed with pt, pt will have MRI today. No discharge, continue IV antibiotics. PT will evaluate pt for discharge planning.
--- NOTE | 2025-01-30 08:18 | ECG_ITS ---
[facility] Test Date: 2025-01-30 Pat Name: MONICO SANCHEZ Department: Room: 2191 Gender: Male Bobcat Operator: : 1960 Requested By: [id number] Order Number: [id number] Reading MD: AMADO YANG Measurements Intervals [place] Rate: 72 P: 32 [place]: 156 QRS: 0 QRSD: 113 T: 79 QT: 389 QTc: 428 Interpretive Statements SINUS RHYTHM LOW QRS VOLTAGE IN PRECORDIAL LEADS [QRS DEFLECTION < 1.0 mV IN CHEST LEADS] INCOMPLETE RIGHT BUNDLE BRANCH BLOCK [90+ ms QRS DURATION, TERMINAL R IN V1/V2, 40+ ms S IN I/aVL/V4/V5/V6] SEPTAL MYOCARDIAL INFARCTION [40+ ms Q WAVE IN V1/V2], OF INDETERMINATE AGE Lateral ST T wave changes possible ischemia Compared to ECG 10/13/2022 11:15:53 Incomplete right bundle-branch block now present Myocardial infarct finding now present Ventricular premature complex(es) no longer present Electronically Signed On 01-30-2025 19:10:34 EDT by AMADO YANG
--- NOTE | 2025-01-30 08:18 | P.PN_ITS ---
Progress Note: Subjective Subjective Interval history: Patient continues to have severe pain and discomfort in the left ankle and foot. Patient feels nauseous and dizzy. No chest pain. No abdominal pain. Exam Narrative Exam Narrative: [pt is awake and alert. oriented to place, time and person. Moderate distress secondary to pain and nausea. HEENT: [place] conjunctiva and NL buccal mucosa Neck: Supple, no tenderness Endocrine: No Thyromegaly. Vascular: No JVD or carotid bruit. Lymphatic: No cervical lymphadenopathy. Chest: CTA no DTP. Heart RRR, no extra sound or murmur. Abd: Soft, no tenderness, no rebound and no rigidity. Increase abd girth therefore clinically I could not exclude the possibility of intra abd mass or organomegaly. LE: No cyanosis or clubbing, no varices or edema. Tenderness, swelling, induration involving the left ankle anteriorly, medially, laterally. Involving the left foot dorsally all the way to the toes. Faint dorsalis pedis pulse. P atient is partially able to flex his ankle. Clinically I cannot exclude the possibility of abscess formation and/or osteomyelitis and/or septic joint. Neuro: A A O. Nl speech, comprehension and attention. Nl and symetrical motor and tone examination through out. []] Constitutional Vital Signs, click to edit/add: Last Vital Signs Temp 99.4 F 01/30/25 04:22 Pulse 74 01/30/25 04:22 Resp 18 01/30/25 04:22 BP 103/64 01/30/25 04:22 Pulse Ox 94 L 01/30/25 04:22 O2 Del Method Room Air 01/30/25 04:22 Progress Note: Objective Labs Labs: Short CBC 01/29/25 01/30/25 Range/Units 14:55 05:39 WBC 13.2 H 14.9 H (4.0-11.0) 10^3/uL Hgb 13.1 L 11.4 L (14.0-18.0) g/dL Hct 39.5 L 34.3 L (42.0-54.0) % Plt Count 254 234 (150-450) 10^3/uL BMP 01/29/25 01/30/25 14:55 05:39 Sodium 137 139 Potassium 3.7 3.8 Chloride 96 L 99 Carbon Dioxide 29.4 28.8 BUN 74.0 H 76.0 H* Creatinine 2.99 H 3.13 H Glucose 217 H 167 H Calcium 10.1 9.1 Progress Note: A&P Assessment and Plan (1) Left leg cellulitis: (2) Leg edema, left: (3) CKD stage 4 due to type 2 diabetes mellitus: (4) CAD (coronary artery disease): Qualifiers: Coronary Disease-Associated Artery/Lesion type: [place] artery [place] vs. transplanted heart: [place] heart Associated angina: without angina Qualified Code(s): I25.10 - Atherosclerotic heart disease of [place] coronary artery without angina pectoris (5) HTN (hypertension): Qualifiers: Hypertension type: renovascular hypertension Qualified Code(s): I15.0 - Renovascular hypertension (6) Diabetes: Qualifiers: Diabetes mellitus type: type 2 Diabetes mellitus parts counterman insulin use: with parts counterman use Diabetes mellitus complication status: with kidney complications Diabetes mellitus complication detail: with chronic kidney disease Chronic kidney disease stage: stage 4 (GFR 15-29) Qualified Code(s): E11.22 - Type 2 diabetes mellitus with diabetic chronic kidney disease; N18.4 - Chronic kidney disease, stage 4 (severe); Z79.4 - parts counterman (current) use of insulin (7) Sepsis: (8) Bacteremia: Plan Severe sepsis present on admission Serratia bacteremia Left ankle and foot cellulitis, cannot exclude the possibility of abscess formation, osteomyelitis and/or septic ankle Patient had received intravenous Ancef. Antibiotic switched to ertapenem to cover Serratia Patient did not receive 30 mL/kg IV fluid infusion due to CKD. I will definitely hold his Lasix and Zaroxolyn. I would give him gentle IV fluid infusion Repeat blood culture in 48 hours I requested MRI of the ankle and foot rule out abscess and osteomyelitis also to see if there is any radiological evidence of septic joint Requested podiatry consultation to assess his ankle situation and provide further advice and recommendations CKD stage IV. Acute element over the last 24 hours secondary to sepsis and bacteremia. Rule out ATN. All diuretics for 24 hours Requested UA to see if there is any RBC or protein. Consider sonographic study of the kidney rule out obstruction or hydronephrosis or retention if kidney function continues to worsen. Diabetes Continue long-acting and sliding scale coverage. Titrate to keep blood sugar between 125 and 180. Hypertension. Blood pressure is soft secondary to above. Hold diuretics. Reduce the dose of Coreg. Hold home losartan. IV fluid infusion Avoid aggressive IV fluid infusion due to his CKD and increased risk of fluid overload. Chronic medical conditions not listed above, incidental findings seen on labs and imaging. These would need to be addressed. Could be addressed when time and condition are appropriate. Could be addressed in the outpatient setting by PCP collaboration with other needed outpatient providers. Patient is in a critical situation. I spent about 50 minutes in the critical care assessment and treatment of this patient as far.
[2025-01-30] MEDS: 0.9 % SODIUM CHLORIDE 500 ML IV (09:38)
[2025-01-30] MEDS: INSULIN GLARGINE 300 UNIT/3 ML INSULN.PEN 25 UNIT SQ ×2 (09:41→21:56)
[2025-01-30] MEDS: CARVEDILOL 6.25 MG TABLET PO ×2 (10:40→21:55)
[2025-01-30] MEDS: CLOPIDOGREL BISULFATE 75 MG TABLET PO (10:40)
[2025-01-30] MEDS: ALLOPURINOL 100 MG TABLET PO ×2 (10:40→21:55)
[2025-01-30] MEDS: ATORVASTATIN CALCIUM 10 MG TABLET PO (10:40)
--- NOTE | 2025-01-30 10:40 | SWNOTE1 ---
Important Message from Medicare reviewed and discussed with patient. Pt. verbalized understanding and voiced he was not feeling well and requested SW sign the form that it was reviewed. No questions at this time. Original given to patient and copy placed in patient?s chart.
[2025-01-30] MEDS: FAMOTIDINE 20 MG TABLET PO (10:41)
[2025-01-30] MEDS: DOCUSATE SODIUM 100 MG CAPSULE 200 MG PO ×2 (10:41→21:54)
--- NOTE | 2025-01-30 10:50 | PM.CN ---
Consult Note: HPI Data of Consult Patient: new to practice Consult date: 01/30/25 Requesting Physician: LILIANA CARNEY Primary Care Provider: Kelby Warner DO Consult Narrative Reason for consult: left diabetic foot infection Narrative: Patient is a 64M who developed rapid onset pain, and redness to his left foot/ankle yesterday am. He presented to the ER yesterday afternoon and was admitted for cellulitis and sepsis. He has multiple medical comorbidities including CKD stage 4, T2DM, CAD s/p stents, and he relates to history of stroke with left sided weakness. He typically ambulates with aide of a walker. He admits to a wound on his left 3rd toe but cannot remember how long it has been there. Xrays in the ER were negative for acute bony abnormality and no evidence of gas forming bacterial infection. He has been afebrile but intermittently hypotensive. At bedside he denies foot pain and relates that his foot and leg are typically swollen like they currently are however he relates that his ankle is painful. He relates his lower extremity pain has improved since being admitted but still has a headache and feels light headed when he attempts to sit or stand up. cc:: CC: LILIANA CARNEY Review of Systems ROS Status of ROS 10 or more systems reviewed and unremarkable except as noted in history and below [facility] Medical History (Updated 01/30/25 @ 08:20 by Narciso Bush MD) Stroke ?I63.9 - Cerebral infarction, unspecified (ICD-10) Enlarged prostate ?N40.0 - Benign prostatic hyperplasia without lower urinary tract symptoms (ICD-10) Constipation ?K59.00 - Constipation, unspecified (ICD-10) CAD (coronary artery disease) ?I25.10 - Atherosclerotic heart disease of [place] coronary artery without angina pectoris (ICD-10) HTN (hypertension) ?I10 - Essential (primary) hypertension (ICD-10) CHF (congestive heart failure) ?I50.9 - Heart failure, unspecified (ICD-10) Surgical History (Updated 01/29/25 @ 16:16 by LILIANA CARNEY) History of neck dissection ?Z98.890 - Other specified postprocedural states (ICD-10) History of amputation of left great toe ?Z89.412 - Acquired absence of left great toe (ICD-10) Stented coronary artery ?Z95.5 - Presence of coronary angioplasty implant and graft (ICD-10) Family History (Updated 01/29/25 @ 16:56 by Juliette Arango) Father Family history of CHF (congestive heart failure) Mother Family history of diabetes mellitus Family history of hypertension Social History (Updated 01/29/25 @ 16:17 by LILIANA CARNEY) Smoking status: Never smoker Non-prescribed substance use: denies use Previous occupational history: Worked as an [employer], and then a [employer]. Highest level of school completed/degree received: some college, no degree Little interest or pleasure in doing things: not at all Feeling down, depressed, or hopeless: not at all Meds Home Medications and Allergies Home Medications ?Medication ?Instructions ?Recorded ?Confirmed ?Type polyethylene glycol 3350 17 17 g PO DAILY PRN constipation 07/30/24 01/29/25 Rx gram/dose oral powder (Miralax) #510 grams allopurinol 100 mg tablet 100 mg PO Q12H 01/29/25 01/29/25 History carvedilol 12.5 mg tablet 12.5 mg PO Q12H 01/29/25 01/29/25 History clopidogrel 75 mg tablet 75 mg PO DAILY 01/29/25 01/29/25 History famotidine 20 mg tablet 20 mg PO DAILY 01/29/25 01/29/25 History fluticasone propionate 50 1 spray intranasal Q12H PRN nasal 01/29/25 01/29/25 History mcg/actuation nasal congestion spray,suspension furosemide 80 mg tablet 80 mg PO Q12H 01/29/25 01/29/25 History insulin glargine U-300 conc 300 30 unit subcut BID 01/29/25 01/29/25 History unit/mL (1.5 mL) subcutaneous pen (Touzach SoloStar U-300 Insulin) insulin lispro 100 unit/mL 1 sliding scale dose subcut ACHS 01/29/25 01/29/25 History subcutaneous pen losartan 100 mg tablet 100 mg PO DAILY 01/29/25 01/29/25 History metolazone 2.5 mg tablet 2.5 mg PO Q12H 01/29/25 01/29/25 History pravastatin 40 mg tablet 40 mg PO DAILY 01/29/25 01/29/25 History spironolactone 50 mg tablet 50 mg PO DAILY 01/29/25 01/29/25 History Allergies Allergy/AdvReac Type Severity Reaction Status Date / Time metoprolol Allergy Unknown Unknown Verified 07/30/24 12:14 ciprofloxacin AdvReac Mild itching Verified 07/30/24 12:14 dapagliflozin (From [facility]) AdvReac Mild itching Verified 07/30/24 12:14 Exam Narrative Exam Narrative: Skin: Left 3rd toe ulcer is partial thickness and consistent with a ruptured blister. No erythema or pain to the toes. Interdigital maceration consistent with tinea pedis is noted. Skin is otherwise intact. Left foot, ankle and leg has patchy areas of erythema. Right foot has intact skin with no SOI Vasc: Dorsalis pedis is faintly palpable while posterior tibial pulse is absent on the left likely secondary to swelling. +3 pitting edema on left and +2 on right. Neuro: LTS intact to dorsal and plantar foot with no pain out of proportion MSK. Weakness noted in all planes on left compared to right. POP anterior-medial ankle and over tarsal tunnel. Constitutional Vital Signs, click to edit/add: Last Vital Signs Temp 98.0 F 01/30/25 10:31 Pulse 70 01/30/25 08:00 Resp 18 01/30/25 08:00 BP 101/54 01/30/25 10:31 Pulse Ox 91 L 01/30/25 08:00 O2 Del Method Room Air 01/30/25 08:00 Results Labs Labs: Short CBC 01/29/25 01/30/25 Range/Units 14:55 05:39 WBC 13.2 H 14.9 H (4.0-11.0) 10^3/uL Hgb 13.1 L 11.4 L (14.0-18.0) g/dL Hct 39.5 L 34.3 L (42.0-54.0) % Plt Count 254 234 (150-450) 10^3/uL BMP 01/29/25 01/30/25 14:55 05:39 Sodium 137 139 Potassium 3.7 3.8 Chloride 96 L 99 Carbon Dioxide 29.4 28.8 BUN 74.0 H 76.0 H* Creatinine 2.99 H 3.13 H Glucose 217 H 167 H Calcium 10.1 9.1 Assessment and Plan Assessment and Plan (1) Left leg cellulitis: (2) Leg edema, left: (3) CKD stage 4 due to type 2 diabetes mellitus: (4) CAD (coronary artery disease): Qualifiers: Coronary Disease-Associated Artery/Lesion type: [place] artery [place] vs. transplanted heart: [place] heart Associated angina: without angina Qualified Code(s): I25.10 - Atherosclerotic heart disease of [place] coronary artery without angina pectoris (5) HTN (hypertension): Qualifiers: Hypertension type: renovascular hypertension Qualified Code(s): I15.0 - Renovascular hypertension (6) Diabetes: Qualifiers: Diabetes mellitus type: type 2 Diabetes mellitus detention insulin use: with ocean transportation intermediary use Diabetes mellitus complication status: with kidney complications Diabetes mellitus complication detail: with chronic kidney disease Chronic kidney disease stage: stage 4 (GFR 15-29) Qualified Code(s): E11.22 - Type 2 diabetes mellitus with diabetic chronic kidney disease; N18.4 - Chronic kidney disease, stage 4 (severe); Z79.4 - middle or intermediate school principal (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 I agree with MRI which is pending as patient has stents and reportedly waiting to hear if these stents are MRI compatible. CT with contrast would be an alternative but given CKD contrast may be contraindicated. CT w/o contrast could be done if MRI cannot be but is much less sensitive/specific. Continue IV antibiotics for now and will wait on MRI as well as clinical progress over next 24 hrs to decide if patient requires surgical intervention. Will follow Please call if patient is able to recieve MRI.
[2025-01-30 14:38] LABS: Alanine Aminotransferase 13 U/L (16-63); Albumin Globulin Ratio 0.6; Albumin Level 2.4 g/dL (3.4-5.0); Alkaline Phosphatase 57 U/L (46-116); Anion Gap 16.9; Aspartate Amino Transferase 13 U/L (15-37); Calcium 8.4 mg/dL (8.5-10.1); Carbon Dioxide 24.9 mmol/L (21.0-32.0); Chloride 100 mmol/L (98-107); Estimated GFR (African America 24 (>=60 mL/min/1.73m^2); Estimated GFR (Non-African Ame 20 (>=60 mL/min/1.73m^2); Globulin 3.9 g/dL; Glucose 226 mg/dL (74-106); Potassium 3.8 mmol/L (3.5-5.1); Sodium 138 mmol/L (136-145); Total Protein 6.3 g/dL (6.4-8.2)
[2025-01-30 14:46] LABS: Blood Urea Nitrogen 76.0 mg/dL (7.0-18.0); Lactate/Lactic Acid 2.2 mmol/L (0.4-2.0)
[2025-01-30 14:46] LABS: Glucose Urine UA >=1000 mg/dL (NEGATIVE)
--- NOTE | 2025-01-30 15:03 | SWNOTE1 ---
DINESH met with pt's , Mary, to discuss dc planning. Pt's voiced that she has been caring for him at home. She voiced it has been a lot lately and exhausting. She did ask about home health care coming in. DINESH did let her know that home health would be therapy and a nurse and that they would visit a few day of the week and likely come in for a certain amount of visits and then be done. She voiced he has had HH in the past. DINESH did let her know that earlier SW did speak with him and it appeared he was not feeling at all. DINESH did let Mary know that therapy did work with pt and at this time they are recommending a short term skilled stay at nursing facility. Mary asked if they had anywhere in this area. DINESH advised in [place] is the [facility]. She stated he has been at [facility] before back in 2020. She stated her mother was the [facility], she likes the [facility] better. DINESH and Mary spoke about Medicare guidelines as well. She stated he is getting an MRI later today or tomorrow morning to determine if the infection is in his bone. DINESH and Mary spoke about usp care and private caregivers. She is familiar with private pay as her mother is now in assisted living in [place]. She attempted to get vocal music teacher care insurance for herself and pt, but her line painting machine operator told her they do not do that anymore. DINESH also let her know that we can provide a private caregiver list as well. She did ask about someone helping him shower at home, bathroom on second floor and he has not been able to climb steps. DINESH let her know that many home health companies can have an aide come in 1x weekly to assist with showering, but it depends on if they have have staff availability. Mary in agreement to see how pt is doing tomorrow and we will discuss dc planning tomorrow in more detail and determine a plan.
[2025-01-30 15:09] LABS: Cast Seen? NONE SEEN #/LPF (NONE SEEN); Crystals Seen? None Seen #/HPF (None Seen)
[2025-01-30 15:10] LABS: Urine Culture Indicated NO
--- NOTE | 2025-01-30 15:15 | SWNOTE1 ---
SW also reviewed Important Message from Medicare form with pt's , Mary. No further questions at this time.
[2025-01-30] MEDS: 0.9 % SODIUM CHLORIDE 1,000 ML 100 ML IV (15:33)
[2025-01-30] MEDS: INSULIN ASPART 300 UNIT/3 ML PEN SUBQ ×2 (16:29→21:55)
[2025-01-30] MEDS: HYDROMORPHONE HCL 0.5 MG/0.5 ML SYRINGE IV (16:30)
[2025-01-30] MEDS: BISACODYL 5 MG TABLET 10 MG PO (21:55)
[2025-01-31] VITALS (27 sets, daily range): BP systolic 108–135; BP diastolic 53–73; PULSE 67–102; RESP 16; TEMP 36.7–37.3; O2SAT 59–100; BMI 10.0
[2025-01-31] MEDS: OXYCODONE HCL 5 MG TABLET 2.5 MG PO ×2 (05:40→13:36)
[2025-01-31 05:47] LABS: Hematocrit 33.1 % (42.0-54.0); Hemoglobin 10.9 g/dL (14.0-18.0); Immature Granulocytes Abs Auto 0.26 10^3/uL (0.00-0.03); Immature Granulocytes Pct Auto 1.6 % (0.0-0.5); Lymphocytes Absolute Auto 0.9 10^3/uL (1.2-3.8); Mean Corpuscular HGB Conc 32.9 g/dL (29.9-35.2); Mean Corpuscular Hemoglobin 30.0 pg (25.9-34.0); Mean Corpuscular Volume 91.2 fL (80.0-94.0); Platelet Count 214 10^3/uL (150-450); Red Blood Count 3.63 10^6/uL (4.70-6.10); White Blood Count 16.4 10^3/uL (4.0-11.0)
[2025-01-31] MEDS: NYSTATIN 15 GM POWDER 1 APPLIC TOPICAL ×2 (05:54→14:20)
[2025-01-31 05:56] LABS: Anion Gap 15.3; Calcium 8.6 mg/dL (8.5-10.1); Carbon Dioxide 25.3 mmol/L (21.0-32.0); Chloride 98 mmol/L (98-107); Estimated GFR (African America 26 (>=60 mL/min/1.73m^2); Estimated GFR (Non-African Ame 22 (>=60 mL/min/1.73m^2); Glucose 141 mg/dL (74-106); Potassium 3.6 mmol/L (3.5-5.1); Sodium 135 mmol/L (136-145)
[2025-01-31 06:06] LABS: Lactate/Lactic Acid 0.6 mmol/L (0.4-2.0)
[2025-01-31 06:17] LABS: Blood Urea Nitrogen 76.0 mg/dL (7.0-18.0)
--- NOTE | 2025-01-31 08:40 | CM.NOTE ---
Bebe from Med-surg asked to call Dr. Kan office to get report from pt's stent placement. Need to find out what type of stents were placed for MRI to proceed with ordered MRI today.
--- NOTE | 2025-01-31 09:15 | CM.NOTE ---
Rounds made with Dr. Bush, discussed plan of care with pt. Awaiting information from [facility] for heart stents and echo to clear for MRI.
[2025-01-31] MEDS: ATORVASTATIN CALCIUM 10 MG TABLET PO (09:32)
[2025-01-31] MEDS: DOCUSATE SODIUM 100 MG CAPSULE 200 MG PO ×2 (09:32→21:05)
[2025-01-31] MEDS: HEPARIN SODIUM (PORCINE) 5,000 UNIT/ML VIAL 5000 UNIT SUBQ ×3 (09:32→23:59)
[2025-01-31] MEDS: ERTAPENEM SODIUM 0.5 GM in 0.9 % SODIUM CHLORIDE 50 ML IV (09:32)
[2025-01-31] MEDS: CLOPIDOGREL BISULFATE 75 MG TABLET PO (09:32)
[2025-01-31] MEDS: FAMOTIDINE 20 MG TABLET PO (09:32)
[2025-01-31] MEDS: ALLOPURINOL 100 MG TABLET PO ×2 (09:32→21:05)
[2025-01-31] MEDS: INSULIN GLARGINE 300 UNIT/3 ML INSULN.PEN 25 UNIT SQ ×2 (09:33→21:12)
--- NOTE | 2025-01-31 10:04 | P.PN_ITS ---
Progress Note: Subjective Subjective Interval history: Patient continues to have severe pain and discomfort in the left ankle and foot. At this time. He does not feel dizzy anymore. No chest pain. No abdominal pain. Exam Narrative Exam Narrative: [pt is awake and alert. oriented to place, time and person. Moderate distress secondary to pain and nausea. HEENT: [place] conjunctiva and NL buccal mucosa Neck: Supple, no tenderness Endocrine: No Thyromegaly. Vascular: No JVD or carotid bruit. Lymphatic: No cervical lymphadenopathy. Chest: CTA no DTP. Heart RRR, no extra sound or murmur. Abd: Soft, no tenderness, no rebound and no rigidity. Increase abd girth therefore clinically I could not exclude the possibility of intra abd mass or organomegaly. LE: No cyanosis or clubbing, no varices or edema. Tenderness, swelling, induration involving the left ankle anteriorly, medially, laterally. Involving the left foot dorsally all the way to the toes. Faint dorsalis pedis pulse. Patient is partially able to flex his ankle. Clinically I cannot exclude the possibility of abscess formation and/or osteomyelitis and/or septic joint. Neuro: A A O. Nl speech, comprehension and attention. Nl and symetrical motor and tone examination through out. []] Constitutional Vital Signs, click to edit/add: Last Vital Signs Temp 98.4 F 01/31/25 07:46 Pulse 82 01/31/25 07:46 Resp 16 01/31/25 07:46 BP 108/57 01/31/25 07:46 Pulse Ox 93 L 01/31/25 07:46 O2 Del Method Nasal Cannula 01/31/25 07:46 O2 Flow Rate 2 01/31/25 07:46 Progress Note: Objective Labs Labs: Short CBC 01/31/25 Range/Units 05:16 WBC 16.4 H (4.0-11.0) 10^3/uL Hgb 10.9 L (14.0-18.0) g/dL Hct 33.1 L (42.0-54.0) % Plt Count 214 (150-450) 10^3/uL BMP 01/30/25 01/31/25 14:17 05:16 Sodium 138 135 L Potassium 3.8 3.6 Chloride 100 98 Carbon Dioxide 24.9 25.3 BUN 76.0 H* 76.0 H* Creatinine 3.15 H 2.92 H Glucose 226 H 141 H Calcium 8.4 L 8.6 Liver Function 01/30/25 Range/Units 14:17 Total Bilirubin 0.5 (0.2-1.0) mg/dL AST 13 L (15-37) U/L ALT 13 L (16-63) U/L Alkaline Phosphatase 57 (46-116) U/L Albumin 2.4 L (3.4-5.0) g/dL Urine 01/30/25 Range/Units 14:30 Urine Color Lt. yellow (YELLOW) Urine Clarity Clear (CLEAR) Urine pH 5.0 (5.0-9.0) Ur Specific [place] 1.010 (1.005-1.025) Urine Protein Negative (NEG/TRACE) mg/dL Urine Glucose (UA) >=1000 A (NEGATIVE) mg/dL Progress Note: A&P Assessment and Plan (1) Left leg cellulitis: (2) Leg edema, left: (3) CKD stage 4 due to type 2 diabetes mellitus: (4) CAD (coronary artery disease): Qualifiers: Coronary Disease-Associated Artery/Lesion type: [place] artery [place] vs. 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 Serratia bacteremia Left ankle and foot cellulitis, cannot exclude the possibility of abscess formation, osteomyelitis and/or septic ankle Patient had received intravenous Ancef. Antibiotic switched to ertapenem to cover Serratia Patient had received 1 vancomycin dose in the emergency room department. Additional vancomycin dose today. Patient did not receive 30 mL/kg IV fluid infusion due to CKD. I will definitely hold his Lasix and Zaroxolyn. Continue gentle IV fluid infusion Repeat blood culture in 48 hours I requested MRI of the ankle and foot rule out abscess and osteomyelitis also to see if there is any radiological evidence of septic joint. MRI could not be done pending further investigation of his cardiac stent and aortic valve replacement. Requested podiatry consultation to assess his ankle situation and provide further advice and recommendations. Please refer to podiatry note for details. Agreement with antibiotic and MRI. CKD stage IV. Acute element over the last 24 hours secondary to sepsis and bacteremia. Rule out ATN. Patient also had urinary retention. More than 1000 mL of urine detected on the bladder scan. Diaz catheter was placed and Hold diuretics for 48 hours Requested UA to see if there is any RBC or protein. UA does not show any RBC or protein to suggest acute glomerulonephritis or ATN. Ultrasound kidney rule out obstructive uropathy Continue Diaz. Urinary retention. More than 1000 mL of retention noted. Diaz catheter was placed and I started patient on Flomax Trial of Diaz removal in 5 to 7 days. Urological investigation may be needed this may include but not limited to prostate exam, prostate ultrasound, cystoscopy, urodynamic study to be done in the outpatient setting by urology team. Diabetes Continue long-acting and sliding scale coverage. Titrate to keep blood sugar between 125 and 180. Hypertension. Blood pressure is soft secondary to above. Hold diuretics. Reduce the dose of Coreg. Hold home losartan. IV fluid infusion Avoid aggressive IV fluid infusion due to his CKD and increased risk of fluid overload. Edema of the left leg from the mid calf down to the ankle Requested venous study rule out DVT. Continue heparin for DVT prophylaxis. Pain, severe pain Patient is on Dilaudid and oxycodone. Continue Tylenol. Cannot use NSAID due to NEO/CKD. Cautious use of opiate due to kidney failure. At the same time I do not want p atient to suffer. Consider the use of Suboxone. Chronic medical conditions not listed above, incidental findings seen on labs and imaging. These would need to be addressed. Could be addressed when time and condition are appropriate. Could be addressed in the outpatient setting by PCP collaboration with other needed outpatient providers. Urinary Catheter Management Urinary Catheter Management Urethral: Cath placed during this visit: yes Urethral indwelling: No Insertion date: 01/30/25 Insertion time: 13:16
--- NOTE | 2025-01-31 10:14 | SWNOTE1 ---
SW stopped in room to speak with pt. Pt sitting up in chair, voiced he was not feeling well. Asked SW to assist with water. SW provided cup of water to patient. SW to stop back in once pt's arrives and after pt works with therapy.
--- NOTE | 2025-01-31 10:24 | CM.NOTE ---
Reports received from [email or web address] and were given to radiology for further clarification to proceed with MRI.
--- NOTE | 2025-01-31 11:53 | PM.ORONB ---
Brief Operative Note Date of procedure: 01/31/25 Pre-op diagnosis general: Left diabetic foot infection, abscess Post-op diagnosis: same as pre-op Procedure: Procedure performed: Incision and drainage left foot abscess Indication for procedure: Mr. Kerr is a 64-year-old male with multiple medical comorbidities who presented to the emergency department on 01/29/2025 with rapid onset cellulitis and pain to his left lower extremity. Please see my consultation note from yesterday for details. Since I saw Mr. Kerr yesterday his leukocytosis has continued to trend up. And on examination his foot is now more painful and his ankle is unchanged. In addition, examination is clearly consistent with a dorsal foot abscess with concern for communication to his ankle. Given physical examination and laboratory findings I recommended to delay the MRI that was approved for today and proceed with I&D. I discussed my concerns with the patient that he has a severe limb threatening condition and patient provided written and verbal consent to proceed. He has not had anything to eat today and according to nursing his only had sips of water for his medications. He has remained afebrile and hypotension has improved since yesterday. Patient is aware that the goal of surgical intervention is to clear infection which may require multiple surgical interventions. Blood cultures are showing serratia. Intraoperative findings: Areas of fluctuance were noted over the tarsal tunnel and dorsal forefoot. Eder amount of serous fluid collection was noted in both sites with normal soft tissue planes and no purulence. The ankle joint was also inspected and opened which revealed some serous fluid within the soft tissues but no purulence from the soft tissues or the joint itself. There is no significant space noted after incision and drainage over the tarsal tunnel or the ankle therefore incisions were loosely approximated however over the dorsal foot there was space therefore was partially closed and packed open. Procedure in detail: Patient was identified in preop holding by myself at which correct side and site were marked. Regional anesthesia was performed by the anesthesia team. Patient did not receive any additional antibiotics as he is receiving scheduled antibiotics on the floor. Patient was then brought to the operating room placed on table in supine position. IV sedation was administered and the left lower extremity was prepped and draped in usual sterile fashion. Formal timeout was performed. Incision was made over the central dorsal forefoot over area of fluctuance. Combination of sharp and blunt dissection into the deep fascia and to the level of tendons was performed evacuating a eder amount of serous fluid. No purulence was identified. Soft tissue swab of the area was obtained and of the serous fluid. Surgical site was irrigated with copious amounts saline. Next incision was placed along the tarsal tunnel over area of fluctuance which again revealed eder amount of serous fluid and normal soft tissue appearance. Combination of sharp and blunt dissection was taken down to deep fascia but no purulence was identified. Finally incision was placed over the dorsal lateral ankle and a combination of sharp and blunt dissection gained access to the joint carefully reflecting the joint capsule. There was serous fluid within the soft tissue planes but no purulence within the soft tissues or the joint itself. All surgical sites were irrigated with copious months of sterile saline. The incision over the anterior lateral ankle and tarsal tunnel were loosely reapproximated with skin suture. The dorsal foot was partially closed and given space the central area was left open and packed with Betadine soaked gauze once hemostasis was confirmed on the table. A bulky dry sterile dressing and multilayer posterior splint was applied. Postoperative plan: Transfer to medical surgical unit He may bear partial weight to his left heel for balance and transfers Elevate left foot above the level of heart May proceed with MRI to ensure there is no other fluid collection Continue broad-spectrum antibiotics and follow cultures -Will defer to hospitalist for antibiotic selection Will follow Implants: none Anesthesia: MAC and regional Surgeon: Robinson Goyal Estimated blood loss (mL): 50 Tourniquet time (min): 0 Pathology: other (Swabs sent to microbiology) Condition: stable Disposition: PACU
--- NOTE | 2025-01-31 12:42 | PC.NURSE ---
1148: time out completed as documented.pt placed on 3L O2 via nasal cannula and positioned per TAPE MAKER. pt monitored throughout block by the script writer,pts vital signs remained WNL throughout procedure. block began at 1136 and was completed at 1146. pt medicated per RENEE Vu once timeout was completed. once complete pts bed to lowest position with siderails up and call light within reach. pt tolerated well with no complaints.
--- NOTE | 2025-01-31 13:17 | SWNOTE1 ---
Pt is in surgery at this time. SW to check back with pt and later today.
--- NOTE | 2025-01-31 13:44 | PC.NURSE ---
1345:pt resting comfortably in bed. pt easily arousable. sips of water given.
--- NOTE | 2025-01-31 13:49 | PC.NURSE ---
1336:PRN oxycodone given per order.
--- NOTE | 2025-01-31 14:14 | SWNOTE1 ---
DINESH called pt's , Mary, and spoke to her about discharge planning. She was waiting until pt got out of surgery to come to hospital. She voiced she will be in around 2:45/3:00. DINESH to speak with Mary at this time.
[2025-01-31] MEDS: 0.9 % SODIUM CHLORIDE 1,000 ML 70 ML IV (14:19)
[2025-01-31] MEDS: ALBUMIN HUMAN 25 GM/100 ML PREMIX IV (14:20)
--- NOTE | 2025-01-31 15:29 | US_ITS ---
The [address] [address] Patient Name: MONICO SANCHEZ MRN: [id number] date: 1960 Sex: M Assigned Patient Location: MS Current Patient Location: [place] Accession/Order Number: [id number] Exam Date: 01/31/2025 15:30 Report Date: 02/01/2025 08:31 At the request of: REZA HUTSON MD Procedure: US renal BI BILATERAL RENAL AND BLADDER ULTRASOUND CLINICAL HISTORY: Left flank pain. NEO r/o hydro or obstructive uropathy COMPARISON: CT 11/15/2024 Estimation of renal size is approximately 10.6 cm on the right and 11.8 cm on the left. No shadowing calculi or hydronephrosis are identified. No renal mass lesions were imaged. There is no perinephric fluid. The urinary bladder contains a Diaz catheter and is not adequately distended for evaluation. US/US renal BI IMPRESSION: NO OBSTRUCTIVE UROPATHY. Impression dictated by: Yasmine Figueroa M.D. 02/01/2025 8:31 AM Dictation Location: [place] [address] Electronically authenticated by: [id number] Y Date: 02/01/2025 08:31
--- NOTE | 2025-01-31 15:46 | SWNOTE1 ---
SW stopped in and spoke with pt's , Mary. Pt had imaging in room. SW did let her know that pt would likely need SNF at discharge. Pt's would like pt to go to [place] since her mother was there in the past. SW to send referral. Referral sent to [place].. Referral included face sheet, ED note, H&P, provider notes, case management report, podiatry consult, operative note, nursing notes, diagnostic imaging, med list, and PT/OT notes.
[2025-01-31] MEDS: VANCOMYCIN HCL 1,000 MG in 0.9 % SODIUM CHLORIDE 250 ML 250 MG IV (16:35)
--- OUTSIDE RECORDS SUMMARY | 2025-01-31 17:16 | XMS_ITS | Encounter Summary ---
Author Organization [facility] Address [address] [facility], [address] [place] [address] Care Team Providers Care Chimney Supervisor Brick Name Role Phone Kelby Warner DO Primary Care Provider Reason for Referral * Imaging (Routine) - Closed Specialty Diagnoses / Procedures Referred By Contac t Referred To Contact Radiology Diagnoses Hypercalcemia Essential hypertension Type 2 diabetes mellitus with unspecified complications (HCC) Procedures US RETROPERITONEAL COMPLETE Harrison Beltran DO [address] [place] [address] Phone: tel: fax: Referral ID Status Reason Start Date Expiration Date Visits Re quested Visits Authorized [id number] Closed 11/17/2022 11/17/2023 1 1 Encounter Details Date Type Department Care Team (Latest Contact Info) Description 11/17/2022 Transcribe Orders [facility] [address] [place] [address] Harrison Beltran U, DO [address] [place], [place] [id number] Hypercalcemia (Primary Dx); Essential hypertension; Type 2 [...] Description 03/15/2025 1:30 PM EDT Office Visit [facility] Part [address] [place] [address] Marvin Nielson MD [address] [place] [address] Dr [address] [place] [address] F/U from 09/14/24 04/12/2025 2:30 PM EST Office Visit [facility] Part [address] [place] [phone] Jeb Dyer PA-C [address] [place] [address] [address] [place] [address] 6M pvr 04/27/2025 1:40 PM EST Office Visit [facility] Part [address] [address] Alma Kan MD [address] [place] [address] [place] [address] 6 month 07/12/2025 1:00 PM EST Pharmacy Visit [facility] Medication Management [address] [place] [address] Heart Failure FU- 6month follow-up 10/09/2025 1:00 PM EDT Office Visit [facility] Part of [facility] [address] [facility] [address] [place] [address] Jeb Dyer PA-C [address] [facility] [address] [place] [address] 1Y psa documented as of [...] cm in length and the left kidney ocxvzdsl50.5 cm in length. Kidneys demonstrate normal cortical [...] documented as of this encounter Care Teams Chimney Supervisor Brick Relationship Specialty Start Date End Date Kelby Warner DO [address] [place] [address] PCP - General Internal Medicine 04/17/21 documented as of this encounter
--- OUTSIDE RECORDS SUMMARY | 2025-01-31 17:16 | XMS_ITS | Encounter Summary ---
Author Organization [facility] Address [address] [facility], [address] [place] [address] Care Team Providers Care Thread Separator Name Role Phone Kelby Warner DO Primary Care Provider [phone] Reason for Referral * Outpatient Service (Routine) - Closed Specialty Diagnoses / Procedures Referred By Contac t Referred To Contact Cardiology Diagnoses Chest pain, unspecified type R07.9 (ICD-10-CM) - Chest pain, unspecified type Procedures Cardiac Stress Test - w/Pharm CHG MYOCARDIAL SPECT MULTIPLE STUDIES 99516 - CHG MYOCARDIAL SPECT MULTIPLE STUDIES Kelby Warner DO [address] [facility] [place] [address] Phone: tel: fax: Referral ID Status Reason Start Date Expiration Date Visits Re quested Visits Authorized [id number] Closed 04/22/2021 06/06/2021 2 2 Encounter Details Date Type Department Care Team (Latest Contact Info) Description 04/17/2021 Transcribe Orders [facility] PRE-ACCESS [address] [place] [address] Kelby Warner DO [address] [facility] [place] [address] Chest pain, unspecified type (Primary Dx) [...] Description 03/15/2025 1:30 PM EDT Office Visit [facility] Part [address] [place] [address] Marvin Nielson MD [address] [place] [address] [address] [place] [address] F/U from 09/14/24 04/12/2025 2:30 PM EST Office Visit [facility] Part [address] [place] [address] Jeb Dyer PAGeremiasC [address] [place] [address] [address] [place] [address] 6M pvr 04/27/2025 1:40 PM EST Office Visit [facility] Part [address] [address] Alma Kan MD [address] [place] [address] [place] [address] 6 month 07/12/2025 1:00 PM EST Pharmacy Visit [facility] Medication Management [address] [place] [address] Heart Failure FU- 6month follow-up 10/09/2025 1:00 PM EDT Office Visit [facility] Part of [address] [place] [address] Jeb Dyer PAGeremiasC [address] [place] [address] [address] [place] [address] 1Y psa documented as of this encounter Results * Cardiac Stress Test - w/Pharm (04/30/2021 11:59 PM EST) Narrative Procedure Note Phoenix Brito MD - 04/30/2021 11:59 PM EST [address] [address] CARDIAC STRESS TEST PATIENT NAME: PIOTR KERR : 1960 MED REC NO: [id number] ROOM: ACCOUNT NO: [id number] ADMIT DATE: 04/30/2021 PROVIDER: Phoenix Brito MD [...] documented as of this encounter Care Teams Thread Separator Relationship Specialty Start Date End Date Kelby Warner DO [address] [place] [address] PCP - General Internal Medicine 04/17/21 documented as of this encounter
--- OUTSIDE RECORDS SUMMARY | 2025-01-31 17:16 | XMS_ITS | Encounter Summary ---
Author Organization [facility] Address [address] [facility] [place] [address] Care Team Providers Care Sheet Metal Mechanic Name Role Phone Kelby Warner DO Primary Care Provider Encounter Details Date Type Department Care Team (Late st Contact Info) Description 02/01/[address] [place] [address] Octavio Lozada MD [address] [facility] [address] [place] [address] Social History Tobacco Use Types Packs/Day Years [...] 1:30 PM EDT Office Visit [facility] Part [address] [facility] [place] [address] Marvin Nielson MD [address] [place] [address] Dr [address] [facility] [place] [address] F/U from 09/14/24 04/12/2025 2:30 PM EST Office Visit [facility] Part [address] [place] [address] Jeb Dyer, PA-C [address] [place] [address] Dr [address] [place], [place] [id number] 6M pvr 04/27/2025 1:40 PM EST Office Visit [facility] Part of [address] [address] Alma Kan MD [address] [place] [address] [place] [address] 6 month 07/12/2025 1:00 PM EST Pharmacy Visit [facility] Medication Management [address] [place] [phone] Heart Failure FU- 6month follow-up 10/09/2025 1:00 PM EDT Office Visit [facility] Part [address] [place] [address] Jeb Dyer, PA-C [address] [place] [address] Dr [address] [place] [address] 1Y psa documented as of this encounter [...] documented as of this encounter Care Teams Sheet Metal Mechanic Relationship Specialty Start Date End Date Kelby Warner DO [address] [place] [address] PCP - General Internal Medicine 04/17/21 documented as of this encounter
--- OUTSIDE RECORDS SUMMARY | 2025-01-31 17:16 | XMS_ITS | Encounter Summary ---
Author Organization [facility] Address [address] [facility] [place] [address] Care Team Providers Care Rn Liaison Name Role Phone Kelby Warner DO Primary Care Provider [phone] Reason for Referral * Imaging (Routine) - Closed Specialty Diagnoses / Procedures Referred By Contac t Referred To Contact Radiology Diagnoses Atherosclerosis of galena artery of lower extremity, unspecified laterality, with unspecified presence of clinical manifestation Procedures VL LOWER EXTREMITY ARTERIAL SEGMENTAL PRESSURES W PPG Kelby Warner DO [address] [facility] [place] [address] Phone: tel: fax: Referral ID Status Reason Start Date Expiration Date Visits Re quested Visits Authorized [id number] Closed 04/17/2021 04/17/2022 1 1 Encounter Details Date Type Department Care Team (Latest Contact Info) Description 04/17/2021 Transcribe [facility] [address] [place] [address] Kelby Warner DO [address] [place] [address] Atherosclerosis of galena artery of lower extremity, unspecified laterality, with [...] Description 03/15/2025 1:30 PM EDT Office Visit [facility] Part [address] [place] [address] Marvin Nielson MD [address] [place] [address] Dr [address] [place] [address] F/U from 09/14/24 04/12/2025 2:30 PM EST Office Visit [facility] Part of [address] [place] [address] Jeb Dyer PA-C [address] [place] [address] [address] [place] [address] 6M pvr 04/27/2025 1:40 PM EST Office Visit [facility] Part of [address] [address] Alma Kan MD [address] [place] [address] [place] [address] 6 month 07/12/2025 1:00 PM EST Pharmacy Visit [facility] Medication Management [address] [place] [address] Heart Failure FU- 6month follow-up 10/09/2025 1:00 PM EDT Office Visit [facility] Part of [facility] [address] [facility] [address] [place] [address] Jeb Dyer PA-C [address] [facility] [address] [place] [address] 1Y psa documented as of this encounter Results * VL LOWER EXTREMITY ARTERIAL SEGMENTAL PRESSURES W PPG (04/30/2021 12:03 PM EST) Anatomical Region Laterality Modality Vascular Vascular Ultraso und 04/30/2021 11:3 1 AM EST Narrative 04/30/2021 12:21 PM EST [facility] V[facility] Lower Arterial Plethysmography Procedure Patient Name LAURA MARC Date of Study 04/30/2021 A Date of 1960 Gender Male Age 60 year(s) Race Room Number Corporate ID [id number] # Patient Acct [id number] # MR # [id number] Government Documents Librarian Citlali Sanchez RVT Interpreting Physician Cleve Encinas MD Referring Referring Physician CHERYL NEWMAN Nurse Practitioner Additional Comments Please fax results to [phone]. Procedure Type of Study: Extremities Arteries: Lower Arterial Plethysmography, PVR Lower. Patient Status:Out Patient. Technical Quality:Adequate visualization. Comments:INDICATIONS: Atherosclerosis of galena artery of extremity I70.209. Simultaneous real time [...] Procedure Note Cleve Encinas MD - 04/30/2021 [facility] Vascular Lower Arterial Plethysmography Procedure Patient Name LAURA MARC Date of Study 04/30/2021 A Date of 1960 Gender Male Age 60 year(s) Race Room Number Corporate ID [id number] # Patient Acct [id number] # MR # [id number] Government Documents Librarian Citlali Sanchez, Elizabeth Interpreting Physician Cleve Encinas MD Referring Referring Physician CHERYL NEWMAN Nurse Practitioner Additional Comments Please fax results to [phone]. Procedure Type of Study: Extremities Arteries: Lower Arterial Plethysmography, PVR Lower. Patient Status:Out Patient. Technical Quality:Adequate visualization. Comments:INDICATIONS: Atherosclerosis of galena artery of fubkszubxM00.209. Simultaneous real time imaging utilizing spectral waveform [...] this encounter Visit Diagnoses Diagnosis Atherosclerosis of galena artery of lower extremity, unspecified laterality, with unspecified presence of clinical manifestation- Primary Atherosclerosis of galena artery of lower extremity, unspecified laterality, with [...] documented as of this encounter Care Teams Rn Liaison Relationship Specialty Start Date End Date Kelby Warner DO [address] [place] [address] PCP - General Internal Medicine 04/17/21 documented as of this encounter
--- OUTSIDE RECORDS SUMMARY | 2025-01-31 17:16 | XMS_ITS | Encounter Summary ---
Author Organization [facility] 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 Part [address] [place] [address] Marvin Nielson MD [address] [place] [address] [address] [place] [address] F/U from 09/14/24 04/12/2025 2:30 PM EST Office Visit [facility] UR[facility] Part of [address] [place] [address] Jeb Dyer, PA-C [address] [place] [address] [address] [place] [address] 6M pvr 04/27/2025 1:40 PM EST Office Visit [facility] [address] [place] [address] Alma Kan MD [address] [facility] [place] [address] 6 month 07/12/2025 1:00 PM EST Pharmacy Visit [facility] Medication Management [address] [place] [address] Heart Failure FU- 6month follow-up 10/09/2025 1:00 PM EDT Office Visit [facility] [address] [facility] [address] [place] [address] Jeb Dyer, PA-C [address] [facility] [address] [place] [address] 1Y psa Scheduled Orders Name [...] documented as of this encounter Care Teams Dishtank Operator Relationship Specialty Start Date End Date Kelby Warner DO [address] [facility] [place] [address] PCP - General Internal Medicine 04/17/21 documented as of this encounter
--- OUTSIDE RECORDS SUMMARY | 2025-01-31 17:16 | XMS_ITS | Clinical Summary ---
Author Organization [facility] Address [address] [place] [address] Care Team Providers Care Live Hanger Name Role Phone Unavailable Primary Care Provider [...]
--- OUTSIDE RECORDS SUMMARY | 2025-01-31 17:17 | XMS_ITS | Clinical Summary ---
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 07/29/2019 Dysphagia following other cerebrovascular diseas e 07/29/2019 Hemiplegia and hemiparesis f ollowing cerebral infarction affecting left non-dominant side 07/29/2019 Encounters Date Type Department Care Team Description 11/09/2024 1:30 PM EDT Procedure Visit [facility] [address] [place] [address] Phoenix Cochran DPM Dermatophytosis of nail (Primary Dx); Dystrophic nail; Type II diabetes mellitus with peripheral circulatory disorder (HCC); Diabetic polyneuropathy associated with type 2 diabetes mellitus (HCC) 11/09/2024 Bamboo flowsheet [facility] [address] [facility] [place] [address] Phoenix Cochran DPM 11/09/2024 Travel 11/08/2024 Travel [...] EDT Procedure Visit [facility] [address] [place] [address] Phoenix Cochran DPBella [address] [place], [place] [phone] Insurance MEDICARE Care Teams Sawdust Drier Relationship Specialty Start Date End Date Kelby Warner DO [address] [place] [address] PCP - General Internal Medicine 02/13/23
--- OUTSIDE RECORDS SUMMARY | 2025-01-31 17:17 | XMS_ITS | Patient Health Record ---
Author Organization [facility] Address [address] [facility] [place] [address] Care Team Providers Care Freight Manager Name Role Phone christine rae Primary Care Provider UnavailHarrison López Unavailable [phone] Brenda Glass Unavailable [phone] Bobo Greene Unavailable Hallie Carranza Unavailable [phone] Allergies Allergen (clinical drug ingredient) Drug/Non Drug [...] W/U Status Risk Notes Problem Primary hyperparathyroidism (55220554) Primary hyperparathyroidism (E21.0) Active confirmed Problem Hypercalcemia (82296045) Hypercalcemia (E83.52) Active confirmed Problem Chronic kidney disease stage 2 (239795250) Chronic kidney disease, stage 2 (mild) (N18.2) Active confirmed Problem Chronic kidney disease stage 4 (497635803) Chronic kidney disease, stage 4 (severe) (N18.4) Active confirmed Problem Electrolytes abnorma l (710325313) Electrolyte abnormality (E87.8) Active confirmed Problem Congestive heart failure (35858884) CHF (congestive heart failure) (I50.9) Active confirmed Problem 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 chronic kidney disease w stg 1-4/unsp chr kdny (I12.9) Active confirmed Problem Disorder of calcium metabolism (03128649) Calcium disorder (E83.50) Active confirmed Problem Benign essential hypertension (2036787) Essential hypertension, benign (I10) Active confirmed Problem Disorder due to type 2 diabetes mellitus (730246843) 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) Active confirmed Problem Chronic kidney disease stage 3A (disorder) (926036873) Chronic kidney disease, stage 3a (N18.31) Active confirmed Problem Chronic kidney disease stage 3B (disorder) (072227574) Chronic kidney disease, stage 3b (N18.32) Active confirmed Vital Signs Heart Rate 66 /min 12/09/2024 Oximetry 96 % 12/09/2024 Blood pressure diastolic 86 mm Hg 12/09/2024 Height 72 in 12/09/2024 Blood pressure systolic 138 mm Hg 12/09/2024 Weight 262 lbs 12/09/2024 BMI 35.53 kg/m2 12/09/2024 Encounters Encounter Location Date Provider Diagnosis [address] [place] [address] 04/08/2024 Harrison Williamsonya Primary hyperparathyroidism E21.0 ; Chronic kidney disease, stage 3a N18.31 ; Essential hypertension, benign I10 ; Electrolyte abnormality E87.8 ; Hypercalcemia E83.52 ; CHF (congestive heart failure) I50.9 and Diabetes mellitus type 2 with complications E11.8 [address] [place] [address] 05/13/2024 Benahili Iboaya Essential hypertensi on, benign I10 ; Chronic kidney disease, stage 4 (severe) N18.4 ; Primary hyperparathyroidism E21.0 ; Electrolyte abnormality E87.8 ; Hypercalcemia E83.52 ; CHF (congestive heart failure) I50.9 and Diabetes mellitus type 2 with complications E11.8 [address] [place] [address] 07/01/2024 Brenda Glass Essential hypertensi on, benign I10 ; Chronic kidney disease, stage 3b N18.32 ; Primary hyperparathyroidism E21.0 ; Electrolyte abnormality E87.8 ; Hypercalcemia E83.52 ; CHF (congestive heart failure) I50.9 and Diabetes mellitus type 2 with complications E11.8 [address] [place] [address] 07/15/2024 Brenda Glass Chronic kidney disea se, stage 3b N18.32 ; Electrolyte abnormality E87.8 ; Essential hypertension, benign I10 ; Primary hyperparathyroidism E21.0 ; Hypercalcemia E83.52 ; CHF (congestive heart failure) I50.9 and Diabetes mellitus type 2 with complications E11.8 [address] [place] [address] 08/26/2024 Benfredyili Iboaya Essential hypertensi on, benign I10 ; Chronic kidney disease, stage 3a N18.31 ; Primary hyperparathyroidism E21.0 ; Electrolyte abnormality E87.8 ; CHF (congestive heart failure) I50.9 and Diabetes mellitus type 2 with complications E11.8 [address] [place] [address] 09/23/2024 Benahili Iboaya Essential hypertensi on, benign I10 ; Chronic kidney disease, stage 3b N18.32 ; Primary hyperparathyroidism E21.0 ; Electrolyte abnormality E87.8 ; CHF (congestive heart failure) I50.9 and Diabetes mellitus type 2 with complications E11.8 [address] [place] [address] 11/11/2024 Hallie Carranza Essential hypertensi on, benign I10 ; Chronic kidney disease, stage 3a N18.31 ; Primary hyperparathyroidism E21.0 ; Electrolyte abnormality E87.8 ; CHF (congestive heart failure) I50.9 and Diabetes mellitus type 2 with complications E11.[address] [place] [address] 12/09/2024 Bobo Ignacio Essential hypertension, benign I10 [...] [facility] [address] [place] [address] 04/11/2024 Harrison Beltran Primary hyperparathyroidism E21.0 [facility] [address] [place] [address] 05/06/2024 [facility] [address] [place] [address] 05/11/2024 [facility] [address] [place] [address] 05/11/2024 [facility] [address] [place] [address] 05/13/2024 [facility] [address] [place] [address] 05/16/2024 [facility] [address] [place] [address] 06/07/2024 [facility] [address] [place] [address] 07/22/2024 [facility] [address] [place] [address] 08/31/2024 [facility] [address] [place] [address] 09/27/2024 [facility] [address] [place] [address] [place] [address] 01/06/2025 Harrison Beltran Electrolyte abnormal ity E87.8 Assessments Encounter Date Diagnosis (ICD Code) Assessment Notes Treatment Notes Treatment Clinical Notes Section Notes 04/08/2024 Primary hyperparathyroidism (ICD-10 - E21.0) 04/08/24-----iPTH [...] hypercalcemia could be from [facility]; primary hPTH; [place] or malignancy. Plan to obtain a nuclear [...] Lasix 80mg BID. DC Torsemide from his tray packer. . 01/01/24__- Patient is normotensive in office [...] Lasix 80mg BID. DC Torsemide from his tray packer. . 01/01/24__- Patient is normotensive in office [...] meds. , Patient was recently admitted to [facility] for peripheral vascular disease and had stenting [...] meds. , Patient was recently admitted to [facility] for peripheral vascular disease and had stenting [...] meds. , Patient was recently admitted to [facility] for peripheral vascular disease and had stenting [...] Lasix 80mg BID. DC Torsemide from his tray packer. . 01/01/24__- Patient is normotensive in office [...] Lasix 80mg BID. DC Torsemide from his tray packer. . 01/01/24__- Patient is normotensive in office [...] consistent with CKD stage 3b. UPCR 0.16g/g, [id number], Uric Acid 5.3, Ca 11, Albumin 4.0, [...] meds. , Patient was recently admitted to [facility] for peripheral vascular disease and had stenting [...] Lasix 80mg BID. DC Torsemide from his tray packer. . 01/01/24__- Patient is normotensive in office [...] consistent with CKD stage 3b. UPCR 0.16g/g, [id number], Uric Acid 5.3, Ca 11, Albumin 4.0, [...] meds. , Patient was recently admitted to [facility] for peripheral vascular disease and had stenting [...] Lasix 80mg BID. DC Torsemide from his tray packer. . 01/01/24__- Patient is normotensive in office [...] consistent with CKD stage 3b. UPCR 0.16g/g, [id number], Uric Acid 5.3, Ca 11, Albumin 4.0, [...] meds. , Patient was recently admitted to [facility] for peripheral vascular disease and had stenting [...] N18.32) 01/06/2025 Electrolyte abnormality (ICD-10 - E87.8) 12/09/2024 CHF (congestive hear t failure) (ICD-10 - I50.9) 04/08/2024 Chronic kidney disease, stage 3a (ICD-10 [...] would like to wait before going to [place] to see Dr. Ferrara 11/11/2024- - Ca [...] hypercalcemia could be from [facility]; primary hPTH; [place] or malignancy. Plan to obtain a nuclear [...] hypercalcemia could be from [facility]; primary hPTH; [place] or malignancy. Plan to obtain a nuclear [...] 5/week. Contiue off calcitriol at this time. 2/7/25- - - Ca 8.4, iPTH 182. Will [...] hypercalcemia could be from [facility]; primary hPTH; [place] or malignancy. Plan to obtain a nuclear [...] iPTH level is 151 today in office. 7/21/23____ Differential for elevated iPTH level of 164 with a Ca level of 11.1. Etiology of hypercalcemia could be from [facility]; primary hPTH; [place] or malignancy. Plan to obtain a nuclear [...] Lasix 80mg BID. DC Torsemide from his tray packer. . 01/01/24__- Patient is normotensive in office [...] hypercalcemia could be from [facility]; primary hPTH; [place] or malignancy. Plan to obtain a nuclear [...] hypercalcemia could be from [facility]; primary hPTH; [place] or malignancy. Plan to obtain a nuclear [...] Lasix 80mg BID. DC Torsemide from his tray packer. . 01/01/24__- Patient is normotensive in office [...] diastolic readings of 60 to 80. 04/08/2024 Electrolyte abnormality (ICD-10 - E87.8) 04/08/24----Na [...] 05/15/23--Uric acid 10.0. Start allopurinol 100mg daily 05/13/2024 Electrolyte abnormality (ICD-10 - E87.8) 05/13/24---Na [...] hypercalcemia could be from [facility]; primary hPTH; [place] or malignancy. Plan to obtain a nuclear [...] Na restriction and Fluid restriction to 2L 11/11/2024 CHF (congestive hear t failure) (ICD-10 [...] Uric acid 10.0. Start allopurinol 100mg daily 09/23/2024 CHF (congestive hear t failure) (ICD-10 [...] studies. DC his Vit D med 04/08/2024 Hypercalcemia (ICD-1 0 - E83.52) 04/08/24----iPTH [...] of diuretic needed for that day. 04/08/2024 CHF (congestive hear t failure) (ICD-10 [...] of diuretic needed for that day. 09/23/2024 Diabetes mellitus type 2 with complications [...] recommendations for a strict ADA 2000calorie diet. 12/09/2024 Diabetes mellitus type 2 with complications [...] meds. , Patient was recently admitted to [facility] for peripheral vascular disease and had stenting [...] Test Test Name Order Date Phosphorus, Serum 11/14/2022 Phosphorus, Serum 12/12/2022 Phosphorus, Serum 02/13/2023 Phosphorus, Serum 03/20/2023 Phosphorus, Serum 05/15/2023 Phosphorus, Serum 07/03/2023 Phosphorus, Serum 10/02/2023 Phosphorus, Serum 01/01/2024 Phosphorus, Serum 04/08/2024 Phosphorus, Serum 05/13/2024 Phosphorus, Serum 07/15/2024 Phosphorus, Serum 07/01/2024 Phosphorus, Serum 08/26/2024 Phosphorus, Serum 09/23/2024 Phosphorus, Serum 11/11/2024 Uric Acid, Serum 08/26/2024 Uric Acid, Serum 09/23/2024 Uric Acid, Serum 07/15/2024 Uric Acid, Serum 11/11/2024 Uric Acid, Serum 05/13/2024 Uric Acid, Serum 01/01/2024 Uric Acid, Serum 04/08/2024 Uric Acid, Serum 07/03/2023 Uric Acid, Serum 10/02/2023 Uric Acid, Serum 05/15/2023 Uric Acid, Serum 03/20/2023 Uric Acid, Serum 12/12/2022 Uric Acid, Serum 02/13/2023 Uric Acid, Serum 11/14/2022 Magnesium, Serum 11/14/2022 Magnesium, Serum 02/13/2023 Magnesium, Serum 03/20/2023 Magnesium, Serum 05/13/2024 Magnesium, Serum 07/15/2024 Magnesium, Serum 07/01/2024 Magnesium, Serum 11/11/2024 Complement C4, Serum 11/14/2022 Protein Electro, 24-Hour Urine Creatine+Creatinine, 24-Hr Ur 11/14/2022 TSH 11/14/2022 TSH 05/13/2024 Complement C3, Serum 11/14/2022 PTH, Intact 11/14/2022 PTH, Intact 12/12/2022 PTH, Intact 07/03/2023 PTH, Intact 05/15/2023 PTH, Intact 10/02/2023 PTH, Intact 01/01/2024 PTH, Intact 05/13/2024 PTH, Intact 04/08/2024 PTH, Intact 08/26/2024 PTH, Intact 09/23/2024 Vitamin D, 25-Hydroxy 11/14/2022 Hepatitis Panel (4) 11/14/2022 Renal Panel (10) 11/14/2022 Renal Panel (10) 02/13/2023 Renal Panel (10) 03/20/2023 Renal Panel (10) 11/11/2024 Renal Panel (10) 07/01/2024 Renal Panel (10) 07/15/2024 Renal Panel (10) 05/13/2024 CBC 04/08/2024 CBC 07/15/2024 CBC 08/26/2024 CBC 09/23/2024 CBC 11/11/2024 CBC 03/20/2023 CBC 02/13/2023 CBC 05/15/2023 CBC 07/03/2023 CBC 01/01/2024 CBC 10/02/2023 CBC 12/12/2022 Urinalysis (hospital) 11/14/2022 Urine Culture and Sensitivity 05/13/2024 Ultrasound : Kidneys and Bladder 023 Urinalysis 12/12/2022 urine protein 11/14/2022 urine protein 05/13/2024 urine creatinine 05/13/2024 urine creatinine 11/14/2022 RENAL PANEL 12/12/2022 RENAL PANEL 05/15/2023 RENAL PANEL 07/03/2023 RENAL PANEL 04/08/2024 RENAL PANEL 10/02/2023 RENAL PANEL 01/01/2024 RENAL PANEL 08/26/2024 RENAL PANEL 09/23/2024 RENAL FUNCTION PANEL 12/09/2024 PHOSPHORUS 12/09/2024 MAGNESIUM 12/09/2024 HEMOGLOBIN A1C 05/13/2024 HEMOGLOBIN A1C 11/14/2022 PROTEIN/CREAT RATIO, UR 12/09/2024 URINALYSIS 12/09/2024 PTH, Intact 12/09/2024 PARATHYROID SPECT WITH MED 12/12/2022 Vitamin D 25 [place] 12/09/2024 Magnesium Level 09/23/2024 Magnesium Level 08/26/2024 Magnesium Level 04/08/2024 Magnesium Level 12/12/2022 Magnesium Level 10/02/2023 Magnesium Level 01/01/2024 Magnesium Level 07/03/2023 Magnesium Level 05/15/2023 Parathyroid Hormone Intact 02/13/2023 Parathyroid Hormone Intact 03/20/2023 Parathyroid Hormone Intact 07/15/2024 Parathyroid Hormone Intact 11/11/2024 Urinalysis with Culture if indicated 08/2024 Urinalysis [...] Culture if indicated Urine Protein Creatinine Ratio 3 Urine Protein [...] w/ Diff 12/09/2024 Cystatin C with Estimated GFR,[facility] Cystatin C with Estimated GFR,[facility] Cystatin C with Estimated GFR,[facility] Next Appt Details Provider Name:Harrison alvarenga, 03/10/2025 01:15:00 PM, [address] [place], [address], Insurance Providers Payer Name Payer Address Payer Phone Subscriber Number Group Number Insured Name Patient Relationship to Insured Coverage Start Date Coverage End [place] [address] [place] [address] [id number] Piotr Kerr Self - patient is the [...]
--- OUTSIDE RECORDS SUMMARY | 2025-01-31 17:17 | XMS_ITS | Encounter Summary ---
Author Organization [facility] Address [address] [place] [address] Care Team Providers Care Machinist/Machine Builder Name Role Phone Kelby Warner DO Primary Care Provider [phone] Encounter Details Date Type Department Care Team (Late st Contact Info) Description 02/14/2023 Abstract [facility] [address] [place] [phone] Phoenix Cochran DPM [address] [place], [place] [phone] Social History Tobacco Use Types Packs/Day Years [...] Procedure Visit [facility] [address] [place] [address] Phoenix Cochran, DPM [address] [place], [place] [phone] documented as of this encounter Visit Diagnoses Not on filedocumented in this encounter Care Teams Machinist/Machine Builder Relationship Specialty Start Date End Date Kelby Warner DO [address] [place] [address] PCP - General Internal Medicine 02/13/23 documented as of this encounter
--- OUTSIDE RECORDS SUMMARY | 2025-01-31 17:17 | XMS_ITS | Encounter Summary ---
Author Organization [facility] Address [address] [facility], [address] [place] [address] Care Team Providers Care Stock Clerk Name Role Phone Kelby Warner DO Primary Care Provider Reason for Referral * Imaging (Routine) - Closed Specialty Diagnoses / Procedures Referred By Contac t Referred To Contact Radiology Diagnoses Primary hyperparathyroidism Hypercalcemia Essential (primary) hypertension Chronic kidney disease, stage II (mild) Procedures NM PARATHYORID W SPECT Harrison Beltran DO [address] [place] [address] Phone: tel: fax: Referral ID Status Reason Start Date Expiration Date Visits Re quested Visits Authorized [id number] Closed 01/15/2023 03/01/2023 1 1 Encounter Details Date Type Department Care Team (Latest Contact Info) Description 01/02/2023 Transcribe Orders [facility] [address] [place] [address] [phone] Harrison Beltran U, DO [address] [place] [address] Primary hyperparathyroidism (Primary Dx); Hypercalcemia; Essential (primary) [...] PM EDT Office Visit [facility] VASCULAR Part [address] [place] [address] Marvin Nielson MD [address] [place] [address] [address] [place] [address] F/U from 09/14/24 04/12/2025 2:30 PM EST Office Visit [facility] UROLOGY Part [address] [place] [address] [place] [address] Jeb Deyr PA-C [address] [place] [address] [address] [place] [address] 6M pvr 04/27/2025 1:40 PM EST Office Visit [facility] CARDIOLOGY Part [address] [address] Alma Kan MD [address] [place] [address] [place] [address] 6 month 07/12/2025 1:00 PM EST Pharmacy Visit [facility] Medication Management [address] [place] [address] Heart Failure FU- 6month follow-up 10/09/2025 1:00 PM EDT Office Visit [facility] UROLOGY Part of [facility] [address] [facility] [address] [place] [address] Jeb Dyer PA-C [address] [place] [address] 1Y psa documented as of [...] documented as of this encounter Care Teams Stock Clerk Relationship Specialty Start Date End Date Kelby Warner DO [address] [place] [address] PCP - General Internal Medicine 04/17/21 documented as of this encounter
--- OUTSIDE RECORDS SUMMARY | 2025-01-31 17:17 | XMS_ITS | Clinical Summary ---
Author Organization [facility] tem Address [id number] [address] [phone] Care Team Providers Care Transport Truck Driver Name Role Phone Unavailable Primary Care Provider [...] file Medical Devices Not on file Insurance [facility]
--- OUTSIDE RECORDS SUMMARY | 2025-01-31 17:17 | XMS_ITS | Clinical Summary ---
Author Organization [facility] Address [address] [place] [address] Care Team Providers Care Orthopedics Pediatric Physician Name Role Phone Alma Kan MD Unavailable Social History Tobacco Use Types Packs/Day Years Used Date Smoking Tobacco: Never Assessed Sex and Gender Information Value Date Recorded Sex Assigned at Not on file Legal Sex Male 1:50 PM EDT Gender Identity Not on file Sexual Orientation Not on file Plan of Treatment Not on file Insurance [facility] [employer] Care Teams Orthopedics Pediatric Physician Relationship Specialty Start Date End Date Alma Kan MD [address] [facility] [place] [address] Referring Internal Medicine 10/07/23
--- OUTSIDE RECORDS SUMMARY | 2025-01-31 17:17 | XMS_ITS | Encounter Summary ---
Author Organization [facility] Address [address] [facility], [address] [place] [address] Care Team Providers Care Instrument Lens Grinder Apprentice Name Role Phone Kelby Warner DO Primary Care Provider Encounter Details Date Type Department Care Team (Late st Contact Info) Description 01/15/2025 Orders Only [facility] Admitting [address] [place] [address] Bobo Ignacio MD [address] [place] [address] Social History Tobacco Use Types Packs/Day Years [...] Description 03/15/2025 1:30 PM EDT Office Visit [facility] VASCULAR Part [address] [place] [address] Marvin Nielson MD [address] [place] [address] [address] [place] [address] F/U from 09/14/24 04/12/2025 2:30 PM EST Office Visit [facility] UROLOGY Part [address] [place] [address] Jeb Dyer, PA-C [address] [place] [address] [address] [place] [address] 6M pvr 04/27/2025 1:40 PM EST Office Visit [facility] CARDIOLOGY Part [address] [address] Alma Kan MD [address] [place] [address] [place] [address] 6 month 07/12/2025 1:00 PM EST Pharmacy Visit [facility] Medication Management [address] [place] [phone] Heart Failure FU- 6month follow-up 10/09/2025 1:00 PM EDT Office Visit [facility] UROLOGY Part of [address] [place] [address] Jeb Dyer, PAGeremiasC [address] [place] [address] [address] [place] [address] 1Y psa documented as of this encounter Visit Diagnoses Not on filedocumented in this encounter Care Teams Instrument Lens Grinder Apprentice Relationship Specialty Start Date End Date Kelby Warner DO [address] [place] [address] PCP - General Internal Medicine 04/17/21 documented as of this encounter
--- OUTSIDE RECORDS SUMMARY | 2025-01-31 17:17 | XMS_ITS | Encounter Summary ---
Author Organization [facility] Address [address] [facility], [address] [place] [address] Care Team Providers Care Manager Name Role Phone Kelby Warner DO Primary Care Provider Encounter Details Date Type Department Care Team (Late st Contact Info) Description 01/23/2021 Abstract [facility] UROLOGY Part of [address] [place] [address] Akira Ferrer MD [address] [place] [address], [address] [place] [address] Social History Tobacco Use Types [...] Office Visit [facility] VASCULAR Part [address] [place] [address] Marvin Nielson MD [address] [place] [address] [address] [place] [address] F/U from 09/14/24 04/12/2025 2:30 PM EST Office Visit [facility] UROLOGY [address] [place] [address] Jeb Dyer, PA-C [address] [place] [address] Dr [address] [place], [place] [phone] 6M pvr 04/27/2025 1:40 PM EST Office Visit [facility] CARDIOLOGY Part [address] [address] Alma Kan MD [address] [place] [address] [place] [address] 6 month 07/12/2025 1:00 PM EST Pharmacy Visit [facility] Medication Management [address] [place] [phone] Heart Failure FU- 6month follow-up 10/09/2025 1:00 PM EDT Office Visit [facility] UROLOGY [address] [place] [address] Jeb Dyer, PA-C [address] [place] [address] Dr [address] [place], [place] [phone] 1Y psa documented as of this encounter [...] documented as of this encounter Care Teams Manager Relationship Specialty Start Date End Date Kelby Warner DO [address] [place] [address] PCP - General Internal Medicine 04/17/21 documented as of this encounter
--- OUTSIDE RECORDS SUMMARY | 2025-01-31 17:17 | XMS_ITS | Encounter Summary ---
Author Organization [facility] Address [address], [address] [place] [address] Care Team Providers Care Radio Sales Account Executive Name Role Phone Kelby Warner DO Primary Care Provider [phone] Reason for Referral * Imaging (Routine) - Closed Specialty Diagnoses / Procedures Referred By Contac t Referred To Contact Diagnoses Type 2 diabetes mellitus with hyperglycemia, unspecified whether remote computer terminal operator insulin use (HCC) Swelling of left lower extremity Procedures Vascular duplex lower extremity venous left Kelby Warner DO [address] [place] [address] Phone: tel: fax: Referral ID Status Reason Start Date Expiration Date Visits Re quested Visits Authorized [id number] Closed 02/16/2023 02/16/2024 1 1 Encounter Details Date Type Department Care Team (Latest Contact Info) Description 02/16/2023 Transcribe Orders [facility] [address] [place] [address] [phone] Kelby Warner DO [address] [place] [address] Type 2 diabetes mellitus with hyperglycemia, unspecified whether fci insulin use (HCC) (Primary Dx); Swelling of [...] Description 03/15/2025 1:30 PM EDT Office Visit [facility] VASCULAR Part [address] [place] [address] Marvin Nielson MD [address] [place] [address] [address] [place] [address] F/U from 09/14/24 04/12/2025 2:30 PM EST Office Visit [facility] UROLOGY Part [address] [place] [id number] Jeb Dyer PAGeremiasC [address] [place] [address] [address] [place] [address] 6M pvr 04/27/2025 1:40 PM EST Office Visit [facility] CARDIOLOGY Part [address] [address] Alma Kan MD [address] [place] [address] [place] [address] 6 month 07/12/2025 1:00 PM EST Pharmacy Visit [facility] Medication Management [address] [place] [address] Heart Failure FU- 6month follow-up 10/09/2025 1:00 PM EDT Office Visit [facility] UROLOGY Part of [facility] [address] [place] [address] Jeb Dyer PA-C [address] [place] [address] 1Y psa documented as of [...] 2 diabetes mellitus with hyperglycemia, unspecified whether fci insulin use (HCC)- Primary Swelling of left lower extremity Swelling of limb Type 2 diabetes mellitus with hyperglycemia, unspecified whether fci insulin use (HCC) Swelling of left lower extremity Swelling of limb documented in this encounter Additional Health Concerns Infection Onset Date Last Indicated Resolved Time COVID-19 (Rule Out) 07/22/2024 07/22/2024 07/22/19 25 2:19 PM EST documented as of this encounter Care Teams Radio Sales Account Executive Relationship Specialty Start Date End Date Kelby Warner DO [address] [facility] [place] [address] PCP - General Internal Medicine 04/17/21 documented as of this encounter
--- OUTSIDE RECORDS SUMMARY | 2025-01-31 17:17 | XMS_ITS | Patient Health Record ---
Author Organization [facility] Address [address] [place] [address] Care Team Providers Care Expedition Supervisor Name Role Phone Adalid Paula Unavailable [phone] Reason For Referral No Information Problems Problem Type SNOMED Code ICD Code Onset Dates Problem Status W/U Status Risk Notes Problem Lymphedema (98600136) Lymphedema (I89.0) Active confirmed Problem Peripheral vascular disease (486544026) PVD (peripheral vascular disease) (I73.9) Active confirmed Problem Cellulitis of left lower limb (9955324614321973 9) Cellulitis of left lower limb (L03.116) Active confirmed Problem Cellulitis of right lower limb (7516939309120314 4) Cellulitis of right lower limb (L03.115) Active confirmed Problem Peripheral venous insufficiency (56556817) Venous insufficiency (chronic) (peripheral) (I87.2) Active confirmed Encounters Encounter Location Date Provider Diagnosis [facility] [address] [place] [address] 02/26/2024 Adalid Paula PVD (peripheral vascular disease) [...] Coverage Start Date Coverage End Date [facility] [address] [place] [address] [id number] Piotr Kerr Self - patient is the insured
--- OUTSIDE RECORDS SUMMARY | 2025-01-31 17:17 | XMS_ITS ---
Author Organization [facility] Address [address], [address] [place] [address] Care Team Providers Care Sulky Driver Name Role Phone Kelby Warner DO Primary Care Provider Med Management (Pharmacy) Status:Enrolled (Active) Start date:12/09/2023 Enrollment date:12/09/2023 Enrollment reason:Referred by provider Current support & services provided:MM Heart Failure Case Team Name Relationship Phone Kristen Rader [facility] Pharmacist [phone] Continued Care and Services Coordination
--- NOTE | 2025-01-31 17:19 | PC.NURSE ---
1504 - contract writer braden physician [address], when he is falling asleep he is desating down to like 59-63% on the oxygen. As soon as we wake him up he comes right back up to 93-97% but it is happening everytime he falls asleep. he said he does have sleep apnea but has not used his CPAP in months at home 1505 - physician responded Is he getting too much pain meds? He may be still under anesthesia effect. How much Dilaudid and Oxy he had received today? 1507 - contract writer responded I have not given him any dilaudid and neither did PACU. He got one dose of oxy today in PACU before coming back over here. But they did a nerve block and MAC they did not do it under general because of his history. to which there was no response 1550 - pt continuous pulse ox read 78%. contract writer went into assess, at this time changed patient to a simple mask and patient's saturation increased to 98% 1551 - contract writer braden physician Is there something more we can do considering he is still desating to 78% unless I go an wake him up every 2 minutes 1654 - physician responded to heatherext We have to stop all narcotics and order BIPAP when he sleeps. Keep close eye on him. I will switch him to step down 1714 - informed physician that patient was going on bipap.
--- OUTSIDE RECORDS SUMMARY | 2025-01-31 17:26 | XMS_ITS | CCD ---
Author Organization [facility] Care Team Providers Care Investigator Claims Name Role Phone Pia Douglass Primary Care Provider [phone] Jorge Pritchett DO Primary Care Provider LEANDRO VIDALES Attending Unavailable RAJAT HURST Admitting Unavailable JORGE PRITCHETT Primary Care Unavailable Jorge Pritchett DO Primary Care Provider DASHA Douglass Primary Care Provider MD Alma Kan Attending Provider Jorge Pritchett DO Primary Care [...] Care Provider DO Jorge Pritchett Attending Provider [phone] Jorge Pritchett Admitting Unavailable Pia Douglass Primary [...] Unavailable Jorge Pritchett DO Primary Care Provider [phone] Jeremias Sullivan DO Attending Provider Yarely ROMO, Jorge Attending Provider YAREYL, JORGE Primary Care Unavailable QUINCY PENN Referring [...] Care Unavailable ELNILES NEGRETE Referring Unavailable BALL, JROGE Primary Care Unavailable IBOAYA, BENAHILI U Referring [...] sources) Ciprofloxacin; Translations: [ciprofloxacin] Drug Allergy 01-21-20 [facility] [employer] (20 sources) Azithromycin; Translations: [azithromycin] Drug Allergy 07-17-19 Dizziness or Vertigo, Unknown [facility] (20 sources) Lisinopril; Translations: [lisinopril] Drug Allergy 07-17-19 [employer] Other (2 sources) Ciprofloxacin Drug Allergy 01-21-[address] [facility] Repository (2 sources) Allergies Reconciled Propensity to adverse reactions Unknown [employer] Other (20 sources) dapagliflozin Drug Allergy 10-26-19 24 Itching [facility] [employer] Work Phone: (13 sources) Lisinopril Propensity to adverse reactions 07-17-19 23 Cough, Unknown [facility] (16 sources) Metoprolol Drug Allergy 07-31-19 25 [facility] (1 source) dapagliflozin; Translations: [Farxiga] Drug Allergy [facility] Repository Medications Current Medications Medication Drug Class(es) [...] Orally Once a day Active bacillus coagulans [id number] 0 unt / inulin 250 mg oral [...] Start: 02-27-2024 take 2 tablets by [facility] once daily furosemide (LASIX) 40 MG tablet [...] Start: 06-01-2021 take 2 tablets by mo [facility] once daily furosemide (LASIX) 40 MG tablet [...] Start: 02-24-2024 Start: 05-27-2021 15 g, Oral, [place] N, Low blood sugar, Starting on 1/3/22 [...] sodium chloride 0.9 % 100 mL IVPB ([id number]) (1 source) Start: 02-24-2024 End: 03-02-2024 1,000 [...] May 12, 2024 1:25pm polyethylene glycol 3350 21594 mg powder for oral solution (20 sources) [...] tablet Orally Once a day Active Saw Clyde-Pumpkin Seed Oil 160 mg capsule (1 source) Start: 12-23-2024 Saw Clyde-Pumpkin Seed Oil 160 mg capsule Active CAP [...] (20 sources) take 1 capsule by mo [facility] once daily Alpha-Lipoic Acid 200 MG CAPS [...] daily Active Blood-Glucose Meter,Continuo us (Dexcom G7 Trimming Machine Set Up Operator) misc (2 sources) Start: 08-29-2023 End: 05-12-2024 Blood-Glucose Meter,Continuo us (Dexcom G7 Trimming Machine Set Up Operator) misc Discontinued 0 .Route 1 August 28, 2023 11:00pm May 12, 2024 12:29pm Use to test home BS 4-6x daily Start: 08-29-2023 Blood-Glucose Meter,Continuous (Dexcom G7 Trimming Machine Set Up Operator) misc Active 0 .Route 1 August 29, [...] Use to test home BS 4-6x daily Blood-Glucose,Trimming Machine Set Up Operator,Cont (Dexcom G7 Trimming Machine Set Up Operator) misc (2 sources) Start: 08-29-2023 End: 05-12-2024 Blood-Glucose,Trimming Machine Set Up Operator,Cont (Dexcom G7 Trimming Machine Set Up Operator) misc Discontinued 0 .Route August 29, 2023 [...] capsule by mouth three times a week [facility] 07/03/2023 Active ceFAZolin 2000 mg injection [...] presley ly Cholecalciferol (VITAMIN D3) 1.25 MG (50808 UT) CAPS Take 1 capsule by mouth daily 0 Active take 1 capsule by mouth in the m orning Cholecalciferol (VITAMIN D3) 1.25 MG (02329 UT) CAPS Take 1 capsule by mouth [...] mouth twice daily as needed, then take [id number] tablets by mouth twice daily as needed [...] per tablet Indications: Coronary artery disease involving [place] coronary artery of [place] heart without angina pectoris , S/P angioplasty [...] Start: 10-15-2022 take 1 capsule by mo [facility] every twenty-four hours in the morning tamsulosin [...] Coronary arteriosclerosis; Translations: [Atherosclerotic heart disease of [place] coronary artery with angina pectoris with documented [...] Comment on above: ISS coverage:< [phone] [id number] 34u> 300 38Basal Insulin 20u am and [...] sources) Long-term current use of insulin; Translations: [medical terminologist (current) use of insulin] Episodic Other aftercare (5 sources) [facility] (current) use of insulin; Translations: [SHELTER CURRENT USE OF INSULIN] Onset: 3 Episodic Other aftercare (1 source) [facility] (current) use of aspirin; Translations: [GAS PUMPER CURRENT USE OF ASPIRIN] Onset: 3 Episodic Other aftercare (1 source) Other predatory animal exterminator (current) drug therapy; Translations: [OTH SHELTER CURRENT DRUG THERAPY] Onset: 3 Episodic Other [...] Acute and unspecified renal failure (2 sources) Nbhgn-zw-krotija renal failure; Translations: [Acute kidney failure, unspecified] [...] [Ratio] 12.6 % 11.8 - 14.4 % [facility] Hematocrit (Bld) [Volume fraction] 39.5 % Low 40.7 - 50.3 % [facility] Hemoglobin (Bld) [Mass/Vol] 12.6 g/dL Low 13.0 - 17.0 g/dL [facility] Interpretation and review of laboratory results Abnormal [facility] MCH (RBC) [Entitic mass] 29.2 pg 25.2 - 33.5 pg [facility] MCHC (RBC) [Mass/Vol] 31.9 g/dL 28.4 - 34.8 g/dL [facility] MCV (RBC) [Entitic vol] 91.6 fL 82.6 - 102.9 fL [facility] Nucleated RBC/100 WBC (Bld) [Ratio] 0 % 0.0 per 100 WBC [facility] Platelet mean volume (Bld) [Entitic vol] 10.8 fL 8.1 - 13.5 fL [facility] Platelets (Bld) [#/Vol] 352 10*3/uL [facility] RBC (Bld) [#/Vol] 4.31 10*6/uL 4.21 - 5.7 7 m/uL [facility] WBC other (Bld) [#/Vol] 7 B on [facility] Erythrocyte distribution width (RBC) [Ratio] 12.6 % Normal 11.8-14.4 [facility] Comment on above: Performed By: #### U MICAO, CBC, UAX, MG, RENP, URTPRT, URI ####[address] [place], [place] [id number] Lab Director: Eder Herrera MD#### PTHNCA ####[address] [id number] Lab Director: Jimenez Pruett MD Hematocrit (Bld) [Volume fraction] 39.5 % Low 40.7-50.3 [facility] Comment on above: Performed By: #### U MICAO, CBC, UAX, MG, RENP, URTPRT, URI ####[address] [place], [place] 7660883 Lab Director: Eder Herrera MD#### PTHNCA ####[address] [address] Lab Director: Jimenez Pruett MD Hemoglobin (Bld) [Mass/Vol] 12.6 g/dL Low 13.0-17.0 [facility] Comment on above: Performed By: #### U MICAO, CBC, UAX, MG, RENP, URTPRT, URI ####[address] [place], [place] 3738683 Lab Director: Eder Herrera MD#### PTHNCA ####[address] [id number] Lab Director: Jimenez Pruett MD MCH (RBC) [Entitic mass] 29.2 pg Normal 25.2-33.5 [facility] Comment on above: Performed By: #### U MICAO, CBC, UAX, MG, RENP, URTPRT, URI ####[address] [place], [place] 0027983 Lab Director: Eder Herrera MD#### PTHNCA ####[address] [phone] Lab Director: Jimenez Pruett MD MCHC (RBC) [Mass/Vol] 31.9 g/dL Normal 28.4-34.[address] [facility] Comment on above: Performed By: #### U MICAO, CBC, UAX, MG, RENP, URTPRT, URI ####[address] [place] [address] [facility] Director: Eder Herrera MD#### PTHNCA ####[address] [address] Lab Director: Jimenez Pruett MD MCV (RBC) [Entitic vol] 91.6 fL Normal 82.6-102.9 M [facility] Comment on above: Performed By: #### U MICAO, CBC, UAX, MG, RENP, URTPRT, URI ####[address] [place] [address] Lab Director: Eder Herrera MD#### PTHNCA ####[address] [address] Lab Director: Jimenez Pruett MD NRBC Automated 0.0 per 100 WBC Normal 0.0 [facility] Comment on above: Performed By: #### U MICAO, CBC, UAX, MG, RENP, URTPRT, URI ####[address] [place] [address] Lab Director: Eder Herrera MD#### PTHNCA ####[address] [place] [address] Lab Director: Jimenez Pruett MD Platelet mean volume (Bld) [Entitic vol] 10.8 fL Normal 8.1-13.5 [facility] Comment on above: Performed By: #### U MICAO, CBC, UAX, MG, RENP, URTPRT, URI ####[address] [place] [address]([facility])[phone] Director: Eder Herrera MD#### PTHNCA ####[address] [phone] Director: Jimenez Pruett MD Platelets (Bld) [#/Vol] 352 10*3/uL Normal 138-453 [facility] Comment on above: Performed By: #### U MICAO, CBC, UAX, MG, RENP, URTPRT, URI ####[address] [place] [address]([facility])[phone] Director: Eder Herrera MD#### PTHNCA ####[place], [place] [address])[phone] Director: Jimenez Pruett MD RBC (Bld) [#/Vol] 4.31 10*6/uL Normal 4.21-5.77 [facility] Comment on above: Performed By: #### U MICAO, CBC, UAX, MG, RENP, URTPRT, URI ####[address] [place] [address]([facility])[phone] Director: Eder Herrera MD#### PTHNCA ####[place], [place] [address])[phone] Director: Jimenez Pruett MD WBC (Bld) [#/Vol] 7.0 10*3/uL Normal 3.5-11.3 [facility] Comment on above: Performed By: #### U MICAO, CBC, UAX, MG, RENP, URTPRT, URI ####[address] [place] [address] Lab Director: Eder Herrera MD#### PTHNCA ####[facility] [place], [place] 5279[address] Lab Director: Jimenez Pruett MD Magnesiumon 12-06-2024 Magnesium [Mass/Vol] 2.4 mg/dL 1.6 - 2 .4 mg/dL [facility] Magnesium [Mass/Vol] 2.4 mg/dL Normal 1.6-2.4 [facility] Comment on above: Performed By: #### U MICAO, CBC, UAX, MG, RENP, URTPRT, URI ####[address] [place] [address] lab Director: Eder Herrera MD#### PTHNCA ####[place] [address] [place], [place] 5092[address] Lab Director: Jimenez Pruett MD Microscopic Urinalysison Epithelial cells LM.HPF (Urine sed) [#/Area] 0 TO 2 [facility] RBC LM.HPF (Urine sed) [#/Area] 0 TO 2 [facility] WBC LM.HPF (Urine sed) [#/Area] None [facility] No Panel Informationon 12-06 [facility] PTH, Intacton 12-06-2024 Interpretation and review of laboratory results Abnormal [facility] Parathyrin.intact [Mass/Vol] 164.0 pg/mL High 17.9 - 58.6 pg/mL [facility] PTH, Intact 164.0 pg/mL High 17.9-58.6 [facility] Comment on above: Performed By: #### U MICAO, CBC, UAX, MG, RENP, URTPRT, URI ####[address] [place] [address] [facility] Director: Eder Herrera MD#### PTHNCA ####[address] [place] [address] Lab Director: Jimenez Pruett MD Protein / creatinine ratio, urineon 12-06-2024 Creatinine (U) [Mass/Vol] 59.5 mg/dL 39.0 - 259.0 mg/dL [facility] Protein (U) [Mass/Vol] 10 mg/dL [facility] Comment on above: No normal range esta blished. Urine Total Protein Creatinine Ratio 0.17 0.00 - 0.20 [facility] Protein,Tot,[place] Uron 2024 Creatinine [Mass/Vol] 59.5 mg/dL Normal 39.0-259.[address] [facility] Comment on above: Performed By: #### U MICAO, CBC, UAX, MG, RENP, URTPRT, URI ####[address] [place] [address]([facility])[phone] Director: Eder Herrera MD#### PTHNCA ####[place] [address] Lab Director: Jimenez Pruett MD Tot Prot. Conc. 10 mg/dL Normal [facility] Comment on above: Result Comment: No n ormal range established. Performed By: #### U MICAO, CBC, UAX, MG, RENP, URTPRT, URI ####[address] [place] [id number] Lab Director: Eder Herrera MD#### PTHNCA ####[place] [address] [place] [phone] Lab Director: Jimenez Pruett MD TP/Cre Ratio 0.17 Normal 0.00-0.20 [facility] Comment on above: Performed By: #### U MICAO, CBC, UAX, MG, RENP, URTPRT, URI ####[facility] [address] [place] [address] Lab Director: Eder Herrera MD#### PTHNCA ####[facility] [address] [place], [place] [id number] lab Director: Jimenez Pruett MD Renal Function Panelon 12-06 Albumin [Mass/Vol] 4.2 g/dL 3.5 - 5.2 g/dL [facility] Anion gap [Moles/Vol] 12 mmol/L 9 - 16 mmol/L [facility] Calcium [Mass/Vol] 10.1 mg/dL 8.6 - 10. 4 mg/dL [facility] Chloride [Moles/Vol] 103 mmol/L 98 - 10 7 mmol/L [facility] CO2 [Moles/Vol] 22 mmol/L 20 - 31 mmol/L [facility] Creatinine [Mass/Vol] 1.4 mg/dL High 0.70 - 1.20 mg/dL [facility] Est, Glom Filt Rate 54 Low - PINF [facility] Comment on above: These results are [...] mg/dL High 74 - 99 mg/dL [facility] [employer] [facility] Interpretation and review of laboratory results Abnormal [facility] Phosphate [Mass/Vol] 2.3 mg/dL Low 2.5 - 4 .5 mg/dL [facility] Potassium [Moles/Vol] 4.1 mmol/L 3.7 - 5.3 mmol/L [facility] [employer] [facility] Sodium [Moles/Vol] 137 mmol/L 136 - 145 mmol/L [facility] Urea nitrogen [Mass/Vol] 34 mg/dL High 8 - 23 mg/dL [facility] Urea nitrogen/Creatinine [Mass ratio] 24 mg/mg High 9 - 20 [facility] Albumin [Mass/Vol] 4.2 g/dL Normal 3.5-5.2 [facility] Comment on above: Performed By: #### U MICAO, CBC, UAX, MG, RENP, URTPRT, URI ####[address] [place], [place] 30[address] [facility] Director: Eder Herrera MD#### PTHNCA ####[place] [place], [place] 2864208 Lab Director: Jimenez Pruett MD Anion gap [Moles/Vol] 12 mmol/L Normal 9-[address] [facility] Comment on above: Performed By: #### U MICAO, CBC, UAX, MG, RENP, URTPRT, URI ####[address] [place], [place] 1638[address] [facility] Director: Eder Herrera MD#### PTHNCA ####[address] [phone] Lab Director: Jimenez Pruett MD BUN/CRE Ratio 24 High - [facility] Comment on above: Performed By: #### U MICAO, CBC, UAX, MG, RENP, URTPRT, URI ####[address] [place], [place] 4762683 Lab Director: Eder Herrera MD#### PTHNCA ####[address] 7561508 Lab Director: Jimenez Pruett MD Calcium [Mass/Vol] 10.1 mg/dL Normal 8.6-10.4 [facility] Comment on above: Performed By: #### U MICAO, CBC, UAX, MG, RENP, URTPRT, URI ####[address] [place] [address] Lab Director: Eder Herrera MD#### PTHNCA ####[facility] [place] [address] Lab Director: Jimenez Pruett MD Chloride [Moles/Vol] 103 mmol/L Normal 98-107 [facility] Comment on above: Performed By: #### U MICAO, CBC, UAX, MG, RENP, URTPRT, URI ####[address] [place], [place] 3176783 Lab Director: Eder Herrera MD#### PTHNCA ####[place] [place] [address] [place] [address] Lab Director: Jimenez Pruett MD CO2 [Moles/Vol] 22 mmol/L Normal 20-31 [facility] Comment on above: Performed By: #### U MICAO, CBC, UAX, MG, RENP, URTPRT, URI ####[address] [place] [address] Lab Director: Eder Herrera MD#### PTHNCA ####[address] [address] Lab Director: Jimenez Pruett MD Creatinine [Mass/Vol] 1.4 mg/dL High 0.70-1.[address] [facility] Comment on above: Performed By: #### U MICAO, CBC, UAX, MG, RENP, URTPRT, URI ####[address] [place] [address] Lab Director: Eder Herrera MD#### PTHNCA ####[address] [address] Lab Director: Jimenez Pruett MD GFR/1.73 sq M.predicted among non-blacks MDRD (S/P/Bld) [Vol rate/Area] 54 mL/min/{1.73_m2} Low >60 [facility] Comment on above: Result Comment: Thes [...] MICAO, CBC, UAX, MG, RENP, URTPRT, URI ####[address] [place], [place] 646[address]83 Lab Director: Eder Herrera MD#### PTHNCA ####[place] [place] [place], [place] 8065908 Lab Director: Jimenez Pruett MD Glucose [Mass/Vol] 128 mg/dL High 74-99 [facility] Comment on above: Performed By: #### U MICAO, CBC, UAX, MG, RENP, URTPRT, URI ####[address] [place], [place] 4340383 Lab Director: Eder Herrera MD#### PTHNCA ####[address] [phone] Lab Director: Jimenez Pruett MD Phosphorus, Inorg. 2.3 mg/dL Low 2.5-4.5 [facility] Comment on above: Performed By: #### U MICAO, CBC, UAX, MG, RENP, URTPRT, URI ####[address] [place], [place] 1011483 Lab Director: Eder Herrera MD#### PTHNCA ####[place] [place], [place] 3062208 Lab Director: Jimenez Pruett MD Potassium [Moles/Vol] 4.1 mmol/L Normal 3.7-5.[address] [facility] Comment on above: Performed By: #### U MICAO, CBC, UAX, MG, RENP, URTPRT, URI ####[address] [place], [place] 9088683 Lab Director: Eder Herrera MD#### PTHNCA ####[address] 1632308 Lab Director: Jimenez Pruett MD Sodium [Moles/Vol] 137 mmol/L Normal 136-145 [facility] Comment on above: Performed By: #### U MICAO, CBC, UAX, MG, RENP, URTPRT, URI ####[address] [place] [address] [facility] Director: Eder Herrera MD#### PTHNCA ####[address] [address] Lab Director: Jimenez Pruett MD Urea nitrogen [Mass/Vol] 34 mg/dL High 8-23 [facility] Comment on above: Performed By: #### U MICAO, CBC, UAX, MG, RENP, URTPRT, URI ####[address] , [facility] Lab Director: Eder Herrera MD#### PTHNCA ####[address] [address] Lab Director: Jimenez Pruett MD UA w/Reflex Cultureon 2024 Clarity (U) Clear Normal CLEAR [facility] Comment on above: Performed By: #### U MICAO, CBC, UAX, MG, RENP, URTPRT, URI ####[address] [place], [place] 6479[address] Lab Director: Eder Herrera MD#### PTHNCA ####[address] 0250508 Lab Director: Jimenez Pruett MD Color (U) Yellow Normal YEL [facility] Comment on above: Performed By: #### U MICAO, CBC, UAX, MG, RENP, URTPRT, URI ####[address] [place], [place] 3010183 Lab Director: Eder Herrera MD#### PTHNCA ####[address] [phone] Lab Director: Jimenez Pruett MD Leukocyte esterase Test strip Ql (U) Negative Normal NEG [facility] Comment on above: Performed By: #### U MICAO, CBC, UAX, MG, RENP, URTPRT, URI ####[address] [place] [address] [facility] Director: Eder Herrera MD#### PTHNCA ####[address] [address] Lab Director: Jimenez Pruett MD Bilirubin, SemiQt,Ur Negative Normal NEG [facility] Comment on above: Performed By: #### U MICAO, CBC, UAX, MG, RENP, URTPRT, URI ####[address] [place] [address] [facility] Director: Eder Herrera MD#### PTHNCA ####[address] [address] Lab Director: Jimenez Pruett MD Blood, Urine Negative Normal NEG [facility] Comment on above: Performed By: #### U MICAO, CBC, UAX, MG, RENP, URTPRT, URI ####[address] [place], [place] 540[address]83 Lab Director: Eder Herrera MD#### PTHNCA ####[address] [place] [address] Lab Director: Jimenez Pruett MD Glucose Ql (U) 3+ mg/dL Abnormal NEG [facility] Comment on above: Performed By: #### U MICAO, CBC, UAX, MG, RENP, URTPRT, URI ####[address] [place] [address] [facility] Director: Eder Herrera MD#### PTHNCA ####[address] [address] Lab Director: Jimenez Pruett MD Ketones Ql (U) Negative Normal NEG [facility] Comment on above: Performed By: #### U MICAO, CBC, UAX, MG, RENP, URTPRT, URI ####[address] [place] [address] [facility] Director: Eder Herrera MD#### PTHNCA ####[address] [address] Lab Director: Jimenez Pruett MD Nitrite,Ur Negative Normal NEG [facility] Comment on above: Performed By: #### U MICAO, CBC, UAX, MG, RENP, URTPRT, URI ####[address] [place] [address] Lab Director: Eder Herrera MD#### PTHNCA ####[address] [address] Lab Director: Jimenez Pruett MD PH,Ur 6.0 Normal 5.0-9.0 [facility] Comment on above: Performed By: #### U MICAO, CBC, UAX, MG, RENP, URTPRT, URI ####[address] [place] [address] [facility] Director: Eder Herrera MD#### PTHNCA ####[address] [place] [address] Lab Director: Jimenez Pruett MD Protein Ql (U) Negative Normal NEG [facility] Comment on above: Performed By: #### U MICAO, CBC, UAX, MG, RENP, URTPRT, URI ####[address] [place], [place] 149[address] [facility] Director: Eder Herrera MD#### PTHNCA ####[address] [address] Lab Director: Jimenez Pruett MD Spec. Enochs,Ur <1.005 Low 1.010-1.020 [facility] Comment on above: Performed By: #### U MICAO, CBC, UAX, MG, RENP, URTPRT, URI ####[address] [place], [place] 359[address]83 Lab Director: Eder Herrera MD#### PTHNCA ####[address] [address] Lab Director: Jimenez Pruett MD Urobilinogen,Ur Normal Normal 0.0-1.0 [facility] Comment on above: Performed By: #### U MICAO, CBC, UAX, MG, RENP, URTPRT, URI ####[address] [place], [place] 8[address]83 Lab Director: Eder Herrera MD#### PTHNCA ####[address] [place] [address] Lab Director: Jimenez Pruett MD Uric Acidon 12-06-2024 Urate [Mass/Vol] 5.5 mg/dL 3.4 - 7.0 mg/dL [facility] Urate [Mass/Vol] 5.5 mg/dL Normal 3.4-7.0 [facility] Comment on above: Performed By: #### U MICAO, CBC, UAX, MG, RENP, URTPRT, URI ####[facility] [address] [place] [address] lab Director: Eder Herrera MD#### PTHNCA ####[address] [place], [place] 14612[address] lab Director: Jimenez Pruett MD Urinalysis with Reflex to Cu ltureon 12-06-2024 Bilirubin Ql (U) Negative NEGATIVE [facility] Glucose Test strip (U) [Mass/Vol] 3+ Abnormal NEGATIVE mg/dL [facility] Hemoglobin Auto test strip Ql (U) Negative NEGATIVE [facility] Interpretation and review of laboratory results Abnormal [facility] Ketones (U) [Mass/Vol] Negative NEGAT PAO mg/dL [facility] Nitrite Ql (U) Negative NEGATIVE [facility] pH (U) 6 [pH] 5.0 - 9.0 [facility] Protein (U) [Mass/Vol] Negative NEGAT PAO mg/dL [facility] Specific gravity (U) [Rel density] Low 1.010 - 1.020 [facility] Urobilinogen Qn (U) Normal 0.0 - 1. 0 EU/dL [facility] Urinalysis,Microon 5 Epithelial cells LM Ql (Urine sed) 0 TO 2 Normal 0-5 [facility] Comment on above: Performed By: #### U MICAO, CBC, UAX, MG, RENP, URTPRT, URI ####[facility] [address] [place] [address] Lab Director: Eder Herrera MD#### PTHNCA ####[address] [place], [place] 357[address] Lab Director: Jimenez Pruett MD Urine RBC's 0 TO 2 Normal 0-2 [facility] Comment on above: Performed By: #### U MICAO, CBC, UAX, MG, RENP, URTPRT, URI ####[facility] [place] [address] Lab Director: Eder Herrera MD#### PTHNCA ####[facility] [address] [place], [place] 385[address] Lab Director: Jimenez Pruett MD Urine WBC's None Normal 0-5 [facility] Comment on above: Performed By: #### U MICAO, CBC, UAX, MG, RENP, URTPRT, URI ####[facility] , [place] 466[address] lab Director: Eder Herrera MD#### PTHNCA ####[address] [place], [place] 6022708 lab Director: Jimenez Pruett MD Basophils Auto (Bld) [#/Vol] Ordered By: Jeremias Sullvian on 11-15-2024 Basophils (Bld) [#/Vol] 0.0 10 3/uL 0.0-0.1 [facility] Basophils/100 WBC Auto (Bld) Ordered By: Jeremias Sullivan on 11-15-2024 Basophils/100 WBC (Bld) 0.2 % 0.2-2.0 [facility] Eosinophils/100 WBC Auto (Bl d)Ordered By: Jeremias Sullivan on 11-15-2024 Eosinophils/100 WBC (Bld) 1.1 % 0.9-7.0 [facility] Erythrocyte distribution wid th Auto (RBC) [Ratio]Ordered By: Jeremias Sullivan on 11-15-2024 Erythrocyte distribution width (RBC) [Ratio] 13.0 % 11.0-15.0 [facility] Estimated glomerular filtrat ion rate (GFR) non- AmericanOrdered By: Jeremias Sullivan on 11-15-2024 GFR/1.73 sq M.predicted among non-blacks MDRD (S/P/Bld) [Vol rate/Area] 43 mL/min/{1.73_m2} Low >=60 mL/min/1.73 m 2 [facility] Hematocrit Auto (Bld) [Volum e fraction]Ordered By: Jeremias Sullivan on 11-15-2024 Hematocrit (Bld) [Volume fraction] 37.1 % Low 42.0-54.0 [facility] Hemoglobin [Mass/volume] in BloodOrdered By: Jeremias Sullivan on 11-15-2024 Hemoglobin (Bld) [Mass/Vol] 12.5 g/dL Low 14.0-18.0 [facility] Laboratory - Chemistry and C hemistry - challengeOrdered By: Jeremias Sullivan on 11-15-2024 Bilirubin Ql (U) Negative NEGATIVE [facility] Glucose (U) [Mass/Vol] mg/dL Abnormal NEGATIVE [facility] Ketones Ql (U) Negative NEGATIVE [facility] pH (U) 7.5 [pH] 5.0-9.0 [facility] Specific gravity (U) [Rel density] <=1.005 Abnormal 1.005-1.025 [facility] Urobilinogen Qn (U) 0.2 {Fabiana'U}/dL 0.2-1.0 [facility] Calcium [Mass/Vol] 10.2 mg/dL High 8.5-10.1 [facility] Chloride [Moles/Vol] 101 mmol/L 98-107 [facility] CO2 [Moles/Vol] 28.8 mmol/L 21.0-32.0 [facility] Creatinine [Mass/Vol] 1.63 mg/dL High 0.70-1.30 [facility] GFR/1.73 sq M.predicted MDRD (S/P/Bld) [Vol rate/Area] 52 mL/min/{1.73_m2} Low >=60 mL/min/1.73 m 2 [facility] Glucose [Mass/Vol] 126 mg/dL High 74-106 [facility] Potassium [Moles/Vol] 4.1 mmol/L 3.5-5.1 [facility] Sodium [Moles/Vol] 138 mmol/L 136-145 [facility] Urea nitrogen [Mass/Vol] 34.0 mg/dL High 7.0-18.0 [facility] Urea nitrogen/Creatinine [Mass ratio] 20.9 mg/mg [facility] Laboratory - Hematology and Cell countsOrdered By: Jeremias Sullivan on 11-15-2024 Immature granulocytes/100 WBC (Bld) 0.3 % 0.0-0.5 [facility] Laboratory - Specimen inform ationOrdered By: Jeremias Sullivan on 11-15-2024 Appearance (U) CLEAR CLEAR [facility] Color (U) LT. YELLOW YELLOW [facility] Laboratory - UrinalysisOrder ed By: Jeremias Sullivan on 11-15-2024 Leukocyte esterase Test strip Ql (U) Negative NEGATIVE [facility] Mucus Ql (Urine sed) NONE SEEN NONE SEEN [facility] Nitrite Ql (U) Negative NEGATIVE [facility] Protein Ql (U) Negative NEG/TRACE [facility] Leukocytes [#/volume] correc yaneth for nucleated erythrocytes in Blood by Automated counOrdered By: Jeremias Sullivan on 11-15-2024 WBC corrected for nucl RBC Auto (Bld) [#/Vol] 8.8 10 3/uL 4.0-11.0 [facility] Lymphocytes Auto (Bld) [#/Vo l]Ordered By: Jeremias Sullivan on 11-15-2024 Lymphocytes (Bld) [#/Vol] 1.4 10 3/uL 1.2-3.8 [facility] Lymphocytes/100 WBC Auto (Bl d)Ordered By: Jeremias Sullivan on 11-15-2024 Lymphocytes/100 WBC (Bld) 15.8 % Low 20.5-60.0 [facility] MCH Auto (RBC) [Entitic mass ]Ordered By: Jeremias Sullivan on 11-15-2024 MCH (RBC) [Entitic mass] 30.8 pg 25.9-34.0 [facility] MCHC Auto (RBC) [Mass/Vol]Or dered By: Jeremias Sullivan on 11-15-2024 MCHC (RBC) [Mass/Vol] 33.7 g/dL 29.9-35.2 [facility] MCV Auto (RBC) [Entitic vol] Ordered By: Jeremias Sullivan on 11-15-2024 MCV (RBC) [Entitic vol] 91.4 fL 80.0-94.0 F [facility] Monocytes Auto (Bld) [#/Vol] Ordered By: Jeremias Sullivan on 11-15-2024 Monocytes (Bld) [#/Vol] 1.0 10 3/uL High 0.3-0.8 [facility] Monocytes/100 WBC Auto (Bld) Ordered By: Jeremias Sullivan on 11-15-2024 Monocytes/100 WBC (Bld) 11.2 % 1.7-12.0 F [facility] Neutrophils Auto (Bld) [#/Vo l]Ordered By: Jeremias Sullivan on 11-15-2024 Neutrophils (Bld) [#/Vol] 6.3 10 3/uL 1.4-6.5 [facility] Neutrophils/100 WBC Auto (Bl d)Ordered By: Jeremias Sullivan on 11-15-2024 Neutrophils/100 WBC (Bld) 71.4 % 43.0-75.0 [facility] No Panel InformationOrdered By: Jeremias Sullivan on 11-15-2024 Urine Bacteria TRACE #/HPF Abnormal NONE SEEN [facility] Urine Culture Reflexed NO [facility] Urine Occult Blood Negative NEGATIVE [facility] Urine Other Casts NONE SEEN #/LPF NONE SEEN [facility] Urine Other Crystals None Seen #/HPF None Seen [facility] Urine RBC NONE SEEN #/HPF 0-2 [facility] Urine Squamous Epithelial Cells NONE SEEN #/LPF NONE/RARE [facility] Urine WBC NONE SEEN #/HPF NONE SEEN [facility] Eosinophils # (Auto) 0.1 10 3/uL 0.0-0.7 [facility] Immature Granulocyte # (Auto) 0.03 10 3/uL 0.00-0.03 [facility] Platelet mean volume Auto (B ld) [Entitic vol]Ordered By: Jeremias Sullivan on 11-15-2024 Platelet mean volume (Bld) [Entitic vol] 10.7 fL 9.5-13.5 [facility] Platelets Auto (Bld) [#/Vol] Ordered By: Jeremias Sullivan on 11-15-2024 Platelets (Bld) [#/Vol] 308 10 3/uL 150-450 [facility] RBC Auto (Bld) [#/Vol]Ordere d By: Jeremias Sullivan on 11-15-2024 RBC (Bld) [#/Vol] 4.06 10 6/uL Low 4.70-6.10 [facility] Serum or plasma anion gap de terminationOrdered By: Jeremias Sullivan on 11-15-2024 Anion gap [Moles/Vol] 12.3 mmol/L [facility] Glucose, Whole Bloodon 11-11 Glucose [Mass/Vol] 184 mg/dL High 74 - 100 mg/dL [facility] Glucose [Mass/Vol] 196 mg/dL High 74 - 100 mg/dL [facility] Glucose [Mass/Vol] 184 mg/dL High 74-100 [facility] Glucose [Mass/Vol] 196 mg/dL High 74-100 [facility] No Panel Informationon 11-11 Interpretation and review of laboratory results Abnormal [facility] Surgical Pathology Reporton 11-11-2024 Surgical Pathology Report Normal [facility] CBCon 11-01-2024 Erythrocyte distribution width (RBC) [Ratio] 13 % 11.8 - 14.4 % [facility] Hematocrit (Bld) [Volume fraction] 38.9 % Low 40.7 - 50.3 % [facility] Hemoglobin (Bld) [Mass/Vol] 12.7 g/dL Low 13.0 - 17.0 g/dL [facility] Interpretation and review of laboratory results Abnormal [facility] MCH (RBC) [Entitic mass] 31 pg 25.2 - 33.5 pg [facility] MCHC (RBC) [Mass/Vol] 32.6 g/dL 28.4 - 34.8 g/dL [facility] MCV (RBC) [Entitic vol] 94.9 fL 82.6 - 102.9 fL [facility] Nucleated RBC/100 WBC (Bld) [Ratio] 0 % 0.0 per 100 WBC [facility] Platelet mean volume (Bld) [Entitic vol] 10.7 fL 8.1 - 13.5 fL [facility] Platelets (Bld) [#/Vol] 279 10*3/uL [facility] RBC (Bld) [#/Vol] 4.1 10*6/uL Low 4.21 - 5.7 7 m/uL [facility] WBC other (Bld) [#/Vol] 7.4 [facility] Erythrocyte distribution width (RBC) [Ratio] 13.0 % Normal 11.8-14.4 [facility] Comment on above: Performed By: #### R ENP, UAX, CBC, URI, URTPRT, UMICAO, MG ####[address] [place] [address] [facility] Director: Eder Herrera MD#### PTHNCA ####[place] [id number] Lab Director: Jimenez Pruett MD Hematocrit (Bld) [Volume fraction] 38.9 % Low 40.7-50.3 [facility] Comment on above: Performed By: #### R ENP, UAX, CBC, URI, URTPRT, UMICAO, MG ####[address] [place] [id number] [facility] Director: Eder Herrera MD#### PTHNCA ####[address] [phone] Lab Director: Jimenez Pruett MD Hemoglobin (Bld) [Mass/Vol] 12.7 g/dL Low 13.0-17.0 [facility] Comment on above: Performed By: #### R ENP, UAX, CBC, URI, URTPRT, UMICAO, MG ####[address] [place] [address] Lab Director: Eder Herrera MD#### PTHNCA ####[address] [address] Lab Director: Jimenez Pruett MD MCH (RBC) [Entitic mass] 31.0 pg Normal 25.2-33.5 [facility] Comment on above: Performed By: #### R ENP, UAX, CBC, URI, URTPRT, UMICAO, MG ####[address] [place] [phone] Lab Director: Eder Herrera MD#### PTHNCA ####[place] [address] Lab Director: Jimenez Pruett MD MCHC (RBC) [Mass/Vol] 32.6 g/dL Normal 28.4-34.[address] [facility] Comment on above: Performed By: #### R ENP, UAX, CBC, URI, URTPRT, UMICAO, MG ####[address] [place] [address] Lab Director: Eder Herrera MD#### PTHNCA ####[place] [address] Lab Director: Jimenez Pruett MD MCV (RBC) [Entitic vol] 94.9 fL Normal 82.6-102.9 M [facility] Comment on above: Performed By: #### R ENP, UAX, CBC, URI, URTPRT, UMICAO, MG ####[address] [place] [phone] Lab Director: Eder Herrera MD#### PTHNCA ####[address] [address] lab Director: Jimenez Pruett MD NRBC Automated 0.0 per 100 WBC Normal 0.0 [facility] Comment on above: Performed By: #### R ENP, UAX, CBC, URI, URTPRT, UMICAO, MG ####[address] , [place] [phone] Lab Director: Eder Herrera MD#### PTHNCA ####[place] [address] [place], [place] [phone] Director: Jimenez Pruett MD Platelet mean volume (Bld) [Entitic vol] 10.7 fL Normal 8.1-13.5 [facility] Comment on above: Performed By: #### R ENP, UAX, CBC, URI, URTPRT, UMICAO, MG ####[address] , [facility] Lab Director: Eder Herrera MD#### PTHNCA ####[place] [address] [place], [place] [address])[phone] Director: Jimenez Pruett MD Platelets (Bld) [#/Vol] 279 10*3/uL Normal 138-453 [facility] Comment on above: Performed By: #### R ENP, UAX, CBC, URI, URTPRT, UMICAO, MG ####[address] , [facility]83 Lab Director: Eder Herrera MD#### PTHNCA ####[place] [address] [place], [place] [address])[phone] Director: Jimenez Pruett MD RBC (Bld) [#/Vol] 4.10 10*6/uL Low 4.21-5.77 [facility] Comment on above: Performed By: #### R ENP, UAX, CBC, URI, URTPRT, UMICAO, MG ####[address] [place] [address] Lab Director: Eder Herrera MD#### PTHNCA ####[address], [place] [phone] Lab Director: Jimenez Pruett MD WBC (Bld) [#/Vol] 7.4 10*3/uL Normal 3.5-11.3 [facility] Comment on above: Performed By: #### R ENP, UAX, CBC, URI, URTPRT, UMICAO, MG ####[facility] [place] [address] lab Director: Eder Herrera MD#### PTHNCA ####[place] [address] [place], [place] [phone] lab Director: Jimenez Pruett MD Magnesiumon 11-01-2024 Magnesium [Mass/Vol] 1.9 mg/dL 1.6 - 2 .4 mg/dL [facility] Magnesium [Mass/Vol] 1.9 mg/dL Normal 1.6-2.4 [facility] Comment on above: Performed By: #### R ENP, UAX, CBC, URI, URTPRT, UMICAO, MG ####[address] [place] [address] lab Director: Eder Herrera MD#### PTHNCA ####[place] [address] [place], [place] [phone] lab Director: Jimenez Pruett MD Microscopic Urinalysison Epithelial cells LM.HPF (Urine sed) [#/Area] 10 TO 20 [facility] RBC LM.HPF (Urine sed) [#/Area] 0 TO 2 [facility] WBC LM.HPF (Urine sed) [#/Area] 2 TO 5 [facility] No Panel Informationon 11-01 [facility] PTH, Intacton 11-01-2024 Interpretation and review of laboratory results Abnormal [facility] Parathyrin.intact [Mass/Vol] 164.0 pg/mL High 17.9 - 58.6 pg/mL [facility] PTH, Intact 164.0 pg/mL High 17.9-58.6 [facility] Comment on above: Performed By: #### R ENP, UAX, CBC, URI, URTPRT, UMICAO, MG ####[facility] [address] [place], [place] [id number] Lab Director: Eder Herrera MD#### PTHNCA ####[place] [address] [place], [place] [id number] Lab Director: Jimenez Pruett MD Protein / creatinine ratio, urineon 11-01-2024 Creatinine (U) [Mass/Vol] 39.1 mg/dL 39.0 - 259.0 mg/dL [facility] Protein (U) [Mass/Vol] mg/dL mg/dL [facility] Comment on above: No normal range esta blished. Urine Total Protein Creatinine Ratio Can not be calculated 0.00 - 0.20 [facility] Protein,Tot,[place] Uron 2024 Creatinine [Mass/Vol] 39.1 mg/dL Normal 39.0-259.[address] [facility] Comment on above: Performed By: #### R ENP, UAX, CBC, URI, URTPRT, UMICAO, MG ####[address] [place], [place] [id number] Lab Director: Eder Herrera MD#### PTHNCA ####[address] [phone] Lab Director: Jimenez Pruett MD Tot Prot. Conc. <6 Normal [facility] Comment on above: Result Comment: No n ormal range established. Performed By: #### R ENP, UAX, CBC, URI, URTPRT, UMICAO, MG ####[facility] [address] [place], [place] [id number] Lab Director: Eder Herrera MD#### PTHNCA ####[facility] [id number] [place] [address] Lab Director: Jimenez Pruett MD TP/Cre Ratio Can not be calculated Normal 0.00-0.[address] [facility] Comment on above: Performed By: #### R ENP, UAX, CBC, URI, URTPRT, UMICAO, MG ####[facility] [place] [address] Lab Director: Eder Herrera MD#### PTHNCA ####[facility] [place], [place] [phone] lab Director: Jimenez Pruett MD Renal Function Panelon 11-01 Albumin [Mass/Vol] 4.1 g/dL 3.5 - 5.2 g/dL [facility] Anion gap [Moles/Vol] 12 mmol/L 9 - 16 mmol/L [facility] Calcium [Mass/Vol] 10 mg/dL 8.6 - 10. 4 mg/dL [facility] Chloride [Moles/Vol] 102 mmol/L 98 - 10 7 mmol/L [facility] CO2 [Moles/Vol] 23 mmol/L 20 - 31 mmol/L [facility] Creatinine [Mass/Vol] 1.6 mg/dL High 0.70 - 1.20 mg/dL [facility] Est, Glom Filt Rate 49 Low - PINF [facility] Comment on above: These results are [...] 183 mg/dL High 74 - 99 mg/dL [facility] Interpretation and review of laboratory results Abnormal [facility] Phosphate [Mass/Vol] 3.2 mg/dL 2.5 - 4 .5 mg/dL [facility] Potassium [Moles/Vol] 4.7 mmol/L 3.7 - 5.3 mmol/L [facility] Sodium [Moles/Vol] 137 mmol/L 136 - 145 mmol/L [facility] Urea nitrogen [Mass/Vol] 30 mg/dL High 8 - 23 mg/dL [facility] Urea nitrogen/Creatinine [Mass ratio] 19 mg/mg 9 - 20 [facility] Albumin [Mass/Vol] 4.1 g/dL Normal 3.5-5.2 [facility] Comment on above: Performed By: #### R ENP, UAX, CBC, URI, URTPRT, UMICAO, MG ####[address] [place] [address] lab Director: Eder Herrera MD#### PTHNCA ####[address] [phone] Lab Director: Jimenez Pruett MD Anion gap [Moles/Vol] 12 mmol/L Normal 9-[address] [facility] Comment on above: Performed By: #### R ENP, UAX, CBC, URI, URTPRT, UMICAO, MG ####[address] [place] [address] lab Director: Eder Herrera MD#### PTHNCA ####[address] [phone] lab Director: Jimenez Pruett MD BUN/CRE Ratio 19 Normal 9-20 [facility] Comment on above: Performed By: #### R ENP, UAX, CBC, URI, URTPRT, UMICAO, MG ####[address] [place] [address] lab Director: Eder Herrera MD#### PTHNCA ####[address] [phone] Lab Director: Jimenez Pruett MD Calcium [Mass/Vol] 10.0 mg/dL Normal 8.6-10.4 [facility] Comment on above: Performed By: #### R ENP, UAX, CBC, URI, URTPRT, UMICAO, MG ####[address] [place], [place] 1573683 Lab Director: Eder Herrera MD#### PTHNCA ####[address] [phone] Lab Director: Jimenez Pruett MD Chloride [Moles/Vol] 102 mmol/L Normal 98-107 [facility] Comment on above: Performed By: #### R ENP, UAX, CBC, URI, URTPRT, UMICAO, MG ####[address] [place] [phone] Lab Director: Eder Herrera MD#### PTHNCA ####[address] [address] Lab Director: Jimenez Pruett MD CO2 [Moles/Vol] 23 mmol/L Normal 20-31 [facility] Comment on above: Performed By: #### R ENP, UAX, CBC, URI, URTPRT, UMICAO, MG ####[address] [place], [place] 841[address]83 Lab Director: Eder Herrera MD#### PTHNCA ####[address] [address] Lab Director: Jimenez Pruett MD Creatinine [Mass/Vol] 1.6 mg/dL High 0.70-1.[address] [facility] Comment on above: Performed By: #### R ENP, UAX, CBC, URI, URTPRT, UMICAO, MG ####[address] [place] [address] lab Director: Eder Herrera MD#### PTHNCA ####[place] [address] [place], [place] 8112808 Lab Director: Jimenez Pruett MD GFR/1.73 sq M.predicted among non-blacks MDRD (S/P/Bld) [Vol rate/Area] 49 mL/min/{1.73_m2} Low >60 [facility] Comment on above: Result Comment: Thes [...] ENP, UAX, CBC, URI, URTPRT, UMICAO, MG ####[address] [place] [phone] lab Director: Eder Herrera MD#### PTHNCA ####[place] [phone] Lab Director: Jimenez Pruett MD Glucose [Mass/Vol] 183 mg/dL High 74-99 [facility] Comment on above: Performed By: #### R ENP, UAX, CBC, URI, URTPRT, UMICAO, MG ####[address] [place] [phone] lab Director: Eder Herrera MD#### PTHNCA ####[address] [phone] Lab Director: Jimenez Pruett MD Phosphorus, Inorg. 3.2 mg/dL Normal 2.5-4.5 [facility] Comment on above: Performed By: #### R ENP, UAX, CBC, URI, URTPRT, UMICAO, MG ####[address] [place] [address] Lab Director: Eder Herrera MD#### PTHNCA ####[place] [address] [place] [address] Lab Director: Jimenez Pruett MD Potassium [Moles/Vol] 4.7 mmol/L Normal 3.7-5.[address] [facility] Comment on above: Performed By: #### R ENP, UAX, CBC, URI, URTPRT, UMICAO, MG ####[address] [place], [place] 7413683 Lab Director: Eder Herrera MD#### PTHNCA ####[address] [phone] Director: Jimenez Pruett MD Sodium [Moles/Vol] 137 mmol/L Normal 136-145 [facility] Comment on above: Performed By: #### R ENP, UAX, CBC, URI, URTPRT, UMICAO, MG ####[address] , [place] 1509983 Lab Director: Eder Herrera MD#### PTHNCA ####[address] [address] Lab Director: Jimenez Pruett MD Urea nitrogen [Mass/Vol] 30 mg/dL High 8-23 [facility] Comment on above: Performed By: #### R ENP, UAX, CBC, URI, URTPRT, UMICAO, MG ####[address] [place], [place] 6550683 Lab Director: Eder Herrera MD#### PTHNCA ####[place] [address] [place] [address] Lab Director: Jimenez Pruett MD UA w/Reflex Cultureon 2024 Bilirubin, SemiQt,Ur Negative Normal NEG [facility] Comment on above: Performed By: #### R ENP, UAX, CBC, URI, URTPRT, UMICAO, MG ####[facility] [place], [place] 2136583 Lab Director: Eder Herrera MD#### PTHNCA ####[address] [phone] Lab Director: Jimenez Pruett MD Blood, Urine Negative Normal NEG [facility] Comment on above: Performed By: #### R ENP, UAX, CBC, URI, URTPRT, UMICAO, MG ####[address] [place], [place] 4450883 lab Director: Eder Herrera MD#### PTHNCA ####[address] [phone] Lab Director: Jimenez Pruett MD Clarity (U) Clear Normal CLEAR [facility] Comment on above: Performed By: #### R ENP, UAX, CBC, URI, URTPRT, UMICAO, MG ####[address] [place], [place] 1832983 Lab Director: Eder Herrera MD#### PTHNCA ####[address] [address] Lab Director: Jimenez Pruett MD Color (U) Yellow Normal YEL [facility] Comment on above: Performed By: #### R ENP, UAX, CBC, URI, URTPRT, UMICAO, MG ####[address] [place], [place] 2454583 lab Director: Eder Herrera MD#### PTHNCA ####[address] [phone] Lab Director: Jimenez Pruett MD Glucose Ql (U) 3+ mg/dL Abnormal NEG [facility] Comment on above: Performed By: #### R ENP, UAX, CBC, URI, URTPRT, UMICAO, MG ####[address] [place], [place] 1866[address] Lab Director: Eder Herrera MD#### PTHNCA ####[address] [phone] Lab Director: Jimenez Pruett MD Ketones Ql (U) Negative Normal NEG [facility] Comment on above: Performed By: #### R ENP, UAX, CBC, URI, URTPRT, UMICAO, MG ####[address] [place], [place] 1870[address] Lab Director: Eder Herrera MD#### PTHNCA ####[address] [phone] Lab Director: Jimenez Pruett MD Leukocyte esterase Test strip Ql (U) Negative Normal NEG [facility] Comment on above: Performed By: #### R ENP, UAX, CBC, URI, URTPRT, UMICAO, MG ####[address] [place], [place] 0084983 Lab Director: Eder Herrera MD#### PTHNCA ####[address] [address] Lab Director: Jimenez Pruett MD Nitrite,Ur Negative Normal NEG [facility] Comment on above: Performed By: #### R ENP, UAX, CBC, URI, URTPRT, UMICAO, MG ####[address] [place], [place] 8109683 Lab Director: Eder Herrera MD#### PTHNCA ####[address] [address] Lab Director: Jimenez Pruett MD PH,Ur 6.0 Normal 5.0-9.0 [facility] Comment on above: Performed By: #### R ENP, UAX, CBC, URI, URTPRT, UMICAO, MG ####[address] [place], [place] 668[address]83 Lab Director: Eder Herrera MD#### PTHNCA ####[address] [address] Lab Director: Jimenez Pruett MD Protein Ql (U) Negative Normal NEG [facility] Comment on above: Performed By: #### R ENP, UAX, CBC, URI, URTPRT, UMICAO, MG ####[address] [place] [address] [facility] Director: Eder Herrera MD#### PTHNCA ####[place] [address] Lab Director: Jimenez Pruett MD Spec. Enochs,Ur <1.005 Low 1.010-1.020 [facility] Comment on above: Performed By: #### R ENP, UAX, CBC, URI, URTPRT, UMICAO, MG ####[address] [place] [address] Lab Director: Eder Herrera MD#### PTHNCA ####[address] [address] Lab Director: Jimenez Pruett MD Urobilinogen,Ur Normal Normal 0.0-1.0 [facility] Comment on above: Performed By: #### R ENP, UAX, CBC, URI, URTPRT, UMICAO, MG ####[address] [place] [phone] lab Director: Eder Herrera MD#### PTHNCA ####[facility] [id number] [place] [address] lab Director: Jimenez Pruett MD Uric Acidon 11-01-2024 Urate [Mass/Vol] 4.8 mg/dL 3.4 - 7.0 mg/dL [facility] Urate [Mass/Vol] 4.8 mg/dL Normal 3.4-7.0 [facility] Comment on above: Performed By: #### R ENP, UAX, CBC, URI, URTPRT, UMICAO, MG ####[facility] [address] [place] [address] lab Director: dEer Herrera MD#### PTHNCA ####[facility] [id number] [place] [address] lab Director: Jimenez Pruett MD Urinalysis with Reflex to Cu ltureon 11-01-2024 Bilirubin Ql (U) Negative NEGATIVE [facility] Clarity (U) Clear Clear [facility] Color (U) Yellow Yellow [facility] Glucose Test strip (U) [Mass/Vol] 3+ Abnormal NEGATIVE mg/dL [facility] Hemoglobin Auto test strip Ql (U) Negative NEGATIVE [facility] Interpretation and review of laboratory results Abnormal [facility] Ketones (U) [Mass/Vol] Negative NEGAT PAO mg/dL [facility] Leukocyte esterase Test strip Ql (U) Negative NEGATIVE [facility] Nitrite Ql (U) Negative NEGATIVE [facility] pH (U) 6 [pH] 5.0 - 9.0 [facility] Protein (U) [Mass/Vol] Negative NEGAT PAO mg/dL [facility] Specific gravity (U) [Rel density] Low 1.010 - 1.020 [facility] Urobilinogen Qn (U) Normal 0.0 - 1. 0 EU/dL [facility] Urinalysis,Microon 5 Epithelial cells LM Ql (Urine sed) 10 TO 20 Normal 0-5 [facility] Comment on above: Performed By: #### R ENP, UAX, CBC, URI, URTPRT, UMICAO, MG ####[facility] [place], [place] 9786383 Lab Director: Eder Herrera MD#### PTHNCA ####[address] [id number] Lab Director: Jimenez Pruett MD Urine RBC's 0 TO 2 Normal 0-2 [facility] Comment on above: Performed By: #### R ENP, UAX, CBC, URI, URTPRT, UMICAO, MG ####[facility] [place] [address] lab Director: Eder Herrera MD#### PTHNCA ####[address] [id number] Lab Director: Jimenez Pruett MD Urine WBC's 2 TO 5 Normal 0-5 [facility] Comment on above: Performed By: #### R ENP, UAX, CBC, URI, URTPRT, UMICAO, MG ####[address] [place] [address] Lab Director: Eder Herrera MD#### PTHNCA ####[address] [id number] Lab Director: Jimenez Pruett MD MRI FOOT RIGHT WO CONTRASTon 10-23-2024 MRI FOOT RIGHT WO CONTRAST Normal [facility] Basic Metabolic Panelon 09-23 Anion gap [Moles/Vol] 9 mmol/L 9 - 16 mmol/L [facility] Calcium [Mass/Vol] 10.6 mg/dL High 8.6 - 10. 4 mg/dL [facility] Chloride [Moles/Vol] 104 mmol/L 98 - 10 7 mmol/L [facility] CO2 [Moles/Vol] 25 mmol/L 20 - 31 mmol/L [facility] Creatinine [Mass/Vol] 1.8 mg/dL High 0.70 - 1.20 mg/dL [facility] Yuliet Lancastert Rate 41 Low - PINF [facility] Comment on above: These results are [...] [Mass/Vol] 90 mg/dL 74 - 99 mg/dL [facility] Potassium [Moles/Vol] 5.5 mmol/L High 3.7 - 5.3 mmol/L [facility] Sodium [Moles/Vol] 138 mmol/L 136 - 145 mmol/L [facility] Urea nitrogen [Mass/Vol] 33 mg/dL High 8 - 23 mg/dL [facility] Urea nitrogen/Creatinine [Mass ratio] 18 mg/mg - 20 [facility] Basic Metabolic Profon 10-20 Anion gap [Moles/Vol] 9 mmol/L Normal 9-[address] [facility] Comment on above: Performed By: #### B RN PAIN MANAGEMENT, BMP ####[facility] [place] [address] Lab Director: Eder Herrera MD BUN/CRE Ratio 18 Normal -20 [facility] Comment on above: Performed By: #### B RN PAIN MANAGEMENT, BMP ####[facility] [place] [address] Lab Director: Eder Herrera MD Calcium [Mass/Vol] 10.6 mg/dL High 8.6-10.4 [facility] Comment on above: Performed By: #### B RN PAIN MANAGEMENT, BMP ####[facility] [place] , [place] [id number] Lab Director: Eder Herrera MD Chloride [Moles/Vol] 104 mmol/L Normal 98-107 [facility] Comment on above: Performed By: #### B RN PAIN MANAGEMENT, BMP ####[facility] [place] , [place] [id number] Lab Director: Eder Herrera MD CO2 [Moles/Vol] 25 mmol/L Normal 20-31 [facility] Comment on above: Performed By: #### B RN PAIN MANAGEMENT, BMP ####[facility] [place] [address] Lab Director: Eder Herrera MD Creatinine [Mass/Vol] 1.8 mg/dL High 0.70-1.[address] [facility] Comment on above: Performed By: #### B RN PAIN MANAGEMENT, BMP ####[address] , [place] 365[address]83 Lab Director: Eder Herrera MD GFR/1.73 sq M.predicted among non-blacks MDRD (S/P/Bld) [Vol rate/Area] 41 mL/min/{1.73_m2} Low >60 [facility] Comment on above: Result Comment: Thes [...] renal tubular secretion. Performed By: #### B RN PAIN MANAGEMENT, BMP ####[facility] [place] , [place] [id number] Lab Director: Eder Herrera MD Glucose [Mass/Vol] 90 mg/dL Normal 74-99 [facility] Comment on above: Performed By: #### B RN PAIN MANAGEMENT, BMP ####[facility] , [place] 5802683 Lab Director: Eder Herrera MD Potassium [Moles/Vol] 5.5 mmol/L High 3.7-5.[address] [facility] Comment on above: Performed By: #### B RN PAIN MANAGEMENT, BMP ####[facility] [place] [address] Lab Director: Eder Herrera MD Sodium [Moles/Vol] 138 mmol/L Normal 136-145 [facility] Comment on above: Performed By: #### B RN PAIN MANAGEMENT, BMP ####[facility] [place] [address] Lab Director: Eder Herrera MD Urea nitrogen [Mass/Vol] 33 mg/dL High 8-23 [facility] Comment on above: Performed By: #### B RN PAIN MANAGEMENT, BMP ####[facility] [place] [address] Lab Director: Eder Herrera MD Brain Natri. Peptideon 10-20 Natriuretic peptide B (Bld) [Mass/Vol] 269 pg/mL High 0-125 [facility] Comment on above: Performed By: #### B RN PAIN MANAGEMENT, BMP ####[address] , [place] 8[address]83 Lab Director: Eder Herrera MD Brain Natriuretic Peptideon 10-20-2024 Natriuretic peptide B (Bld) [Mass/Vol] 269 pg/mL High 0 - 125 pg/mL [facility] No Panel Informationon 10-20 Interpretation and review of laboratory results Abnormal [facility] Hemoglobin A1Con 10-04-2024 Average glucose Estimated from glycated hemoglobin (Bld) [Mass/Vol] 169 mg/dL [facility] Comment on above: The ADA and AACC rec ommend providing the estimated average glucose result to permit better patient understanding of their HBA1c result. HbA1c (Bld) [Mass fraction] 7.5 % High 4.0 - 6.0 % [facility] Interpretation and review of laboratory results Abnormal [facility] Glucose [Mass/Vol] 169 mg/dL Normal [facility] Comment on above: Result Comment: The ADA and AACC recommend providing the estimated average glucose result to permit better patient understanding of their HBA1c result. Performed By: #### G LYHGB ####[address] [place], [place] [id number] lab Director: Jimenez Pruett MD HbA1c (Bld) [Mass fraction] 7.5 % High 4.0-6.0 [facility] Comment on above: Performed By: #### G LYHGB ####[facility] [address] [place], [place] [id number] lab Director: Jimenez Pruett MD PSA Screeningon 10-04-2024 Prostate specific Ag [Mass/Vol] 0.51 ng/mL 0.00 - 4.00 ng/mL [facility] Comment on above: The Cyndi ECLIA as say is used. Results obtained with different assay methods cannot be used interchangeably. [facility] PSA, Screeningon 10-04-2024 Prostatic Spec. Ag 0.51 ng/mL Normal 0.00-4.00 [facility] Comment on above: Result Comment: The Cyndi ECLIA assay is used. Results obtained with different assay methods cannot be used interchangeably. Performed By: #### P SAS ####[facility] [address] [place], [place] 3023408 lab Director: Jimenez Pruett MD CBCon 09-20-2024 Erythrocyte distribution width (RBC) [Ratio] 13.4 % 11.8 - 14.4 % [facility] Hematocrit (Bld) [Volume fraction] 35.8 % Low 40.7 - 50.3 % [facility] Hemoglobin (Bld) [Mass/Vol] 11.7 g/dL Low 13.0 - 17.0 g/dL [facility] Interpretation and review of laboratory results Abnormal [facility] MCH (RBC) [Entitic mass] 30.5 pg 25.2 - 33.5 pg [facility] MCHC (RBC) [Mass/Vol] 32.7 g/dL 28.4 - 34.8 g/dL [facility] MCV (RBC) [Entitic vol] 93.5 fL 82.6 - 102.9 fL [facility] Nucleated RBC/100 WBC (Bld) [Ratio] 0 % 0.0 per 100 WBC [facility] Platelet mean volume (Bld) [Entitic vol] 11 fL 8.1 - 13.5 fL [facility] Platelets (Bld) [#/Vol] 292 10*3/uL [facility] RBC (Bld) [#/Vol] 3.83 10*6/uL Low 4.21 - 5.7 7 m/uL [facility] WBC other (Bld) [#/Vol] 7.9 B [facility] Erythrocyte distribution width (RBC) [Ratio] 13.4 % Normal 11.8-14.4 [facility] Comment on above: Performed By: #### P THNCA ####[place] [address] Lab Director: Jimenez Pruett MD#### VALARIE, MG, URI, CBC ####[address] [place] [address] Lab Director: Eder Herrera MD Hematocrit (Bld) [Volume fraction] 35.8 % Low 40.7-50.3 [facility] Comment on above: Performed By: #### P THNCA ####[facility] [address] [place] [address] Lab Director: Jimenez Pruett MD#### RENP, MG, URI, CBC ####[address] [place] [address] Lab Director: Eder Herrera MD Hemoglobin (Bld) [Mass/Vol] 11.7 g/dL Low 13.0-17.0 [facility] Comment on above: Performed By: #### P THNCA ####[address] [address] Lab Director: Jimenez Pruett MD#### RENP, MG, URI, CBC ####[address] [place] [address] lab Director: Eder Herrera MD MCH (RBC) [Entitic mass] 30.5 pg Normal 25.2-33.5 [facility] Comment on above: Performed By: #### P THNCA ####[address] [address] Lab Director: Jimenez Pruett MD#### RENP, MG, URI, CBC ####[address] [place] [address] lab Director: Eder Herrera MD MCHC (RBC) [Mass/Vol] 32.7 g/dL Normal 28.4-34.[address] [facility] Comment on above: Performed By: #### P THNCA ####[address] [address] Lab Director: Jimenez Pruett MD#### RENP, MG, URI, CBC ####[address] [place] [address] Lab Director: Eder Herrera MD MCV (RBC) [Entitic vol] 93.5 fL Normal 82.6-102.9 [facility] Comment on above: Performed By: #### P THNCA ####[address] [address] Lab Director: Jimenez Pruett MD#### RENP, MG, URI, CBC ####[address] [place] [address] Lab Director: Edre Herrera MD NRBC Automated 0.0 per 100 WBC Normal 0.0 [facility] Comment on above: Performed By: #### P THNCA ####[address] [place] [address] Lab Director: Jimenez Pruett MD#### RENP, MG, URI, CBC ####[address] [place] [address] Lab Director: Eder Herrera MD Platelet mean volume (Bld) [Entitic vol] 11.0 fL Normal 8.1-13.5 [facility] Comment on above: Performed By: #### P THNCA ####[address] [address] Lab Director: Jimenez Pruett MD#### RENP, MG, URI, CBC ####[address] [place] [address] Lab Director: Eder Herrera MD Platelets (Bld) [#/Vol] 292 10*3/uL Normal 138-453 [facility] Comment on above: Performed By: #### P THNCA ####[address] [address] Lab Director: Jimenez Pruett MD#### RENP, MG, URI, CBC ####[address] [place] [address] Lab Director: Eder Herrera MD RBC (Bld) [#/Vol] 3.83 10*6/uL Low 4.21-5.77 [facility] Comment on above: Performed By: #### P THNCA ####[address] [address] Lab Director: Jimenez Pruett MD#### RENP, MG, URI, CBC ####[address] [place] [address] Lab Director: Eder Herrera MD WBC (Bld) [#/Vol] 7.9 10*3/uL Normal 3.5-11.3 [facility] Comment on above: Performed By: #### P THNCA ####[facility] [address] [place] [address] Lab Director: Jimenez Pruett MD#### RENP, MG, URI, CBC ####[facility] [place] [address] Lab Director: Eder Herrera MD Magnesiumon 09-20-2024 Magnesium [Mass/Vol] 2.2 mg/dL 1.6 - 2 .4 mg/dL [facility] Magnesium [Mass/Vol] 2.2 mg/dL Normal 1.6-2.4 [facility] Comment on above: Performed By: #### P THNCA ####[address] [place] [address] Lab Director: Jimenez Pruett MD#### RENP, MG, URI, CBC ####[facility] [place] [address] Lab Director: Eder Herrera MD Microscopic Urinalysison Epithelial cells LM.HPF (Urine sed) [#/Area] None [facility] RBC LM.HPF (Urine sed) [#/Area] None [facility] WBC LM.HPF (Urine sed) [#/Area] None [facility] No Panel Informationon 09-20 [facility] PTH, Intacton 09-20-2024 Interpretation and review of laboratory results Abnormal [facility] Parathyrin.intact [Mass/Vol] 120.0 pg/mL High 17.9 - 58.6 pg/mL [facility] PTH, Intact 120.0 pg/mL High 17.9-58.6 [facility] Comment on above: Performed By: #### P THNCA ####[facility] [address] [place] [address] Lab Director: Jimenez Pruett MD#### RENP, MG, URI, CBC ####[address] [place], [place] 38[address] Lab Director: Eder Herrera MD Protein / creatinine ratio, urineon 09-20-2024 Creatinine (U) [Mass/Vol] 43.5 mg/dL 39.0 - 259.0 mg/dL [facility] Protein (U) [Mass/Vol] 7 mg/dL [facility] Comment on above: No normal range esta blished. Urine Total Protein Creatinine Ratio 0.16 0.00 - 0.20 [facility] Protein,Tot,[place] Uron 2024 Creatinine [Mass/Vol] 43.5 mg/dL Normal 39.0-259.[address] [facility] Comment on above: Performed By: #### BOLIVAR DAVIS URTPRT ####[address] , [facility] Lab Director: Eder Herrera MD Tot Prot. Conc. 7 mg/dL Normal [facility] Comment on above: Result Comment: No n ormal range established. Performed By: #### BOLIVAR DAVIS URTPRT ####[address] [place], [place] [id number] Lab Director: Eder Herrera MD TP/Cre Ratio 0.16 Normal 0.00-0.20 [facility] Comment on above: Performed By: #### U AXBOLIVAR URTPRT ####[address] , [place] [id number] Lab Director: Eder Herrera MD Renal Function Panelon 09-20 Albumin [Mass/Vol] 4 g/dL 3.5 - 5.2 g/dL [facility] Anion gap [Moles/Vol] 12 mmol/L 9 - 16 mmol/L [facility] Calcium [Mass/Vol] 11 mg/dL High 8.6 - 10. 4 mg/dL [facility] Chloride [Moles/Vol] 99 mmol/L 98 - 10 7 mmol/L [facility] CO2 [Moles/Vol] 24 mmol/L 20 - 31 mmol/L [facility] Creatinine [Mass/Vol] 2.1 mg/dL High 0.70 - 1.20 mg/dL [facility] Est, Glom Filt Rate 34 Low - PINF [facility] Comment on above: These results are [...] 169 mg/dL High 74 - 99 mg/dL [facility] Interpretation and review of laboratory results Abnormal [facility] Phosphate [Mass/Vol] 2.5 mg/dL 2.5 - 4 .5 mg/dL [facility] Potassium [Moles/Vol] 4.5 mmol/L 3.7 - 5.3 mmol/L [facility] Sodium [Moles/Vol] 135 mmol/L Low 136 - 145 mmol/L [facility] Urea nitrogen [Mass/Vol] 45 mg/dL High 8 - 23 mg/dL [facility] Urea nitrogen/Creatinine [Mass ratio] 21 mg/mg High 9 - 20 [facility] Albumin [Mass/Vol] 4.0 g/dL Normal 3.5-5.2 [facility] Comment on above: Performed By: #### P THNCA ####[facility] [address] [place] [address] Lab Director: Jimenez Pruett MD#### RENP, MG, URI, CBC ####[facility] [place] [address] Lab Director: Eder Herrera MD Anion gap [Moles/Vol] 12 mmol/L Normal 9-[address] [facility] Comment on above: Performed By: #### P THNCA ####[facility] [place] [address] Lab Director: Jimenez Pruett MD#### RENP, MG, URI, CBC ####[address] [place], [place] 360[address]83 Lab Director: Eder Herrera MD BUN/CRE Ratio 21 High 9-20 [facility] Comment on above: Performed By: #### P THNCA ####[address] [address] Lab Director: Jimenez Pruett MD#### RENP, MG, URI, CBC ####[address] [place], [place] 1431383 Lab Director: Eder Herrera MD Calcium [Mass/Vol] 11.0 mg/dL High 8.6-10.4 [facility] Comment on above: Performed By: #### P THNCA ####[address] [address] Lab Director: Jimenez Pruett MD#### RENP, MG, URI, CBC ####[address] 3257983 Lab Director: Eder Herrera MD Chloride [Moles/Vol] 99 mmol/L Normal 98-107 [facility] Comment on above: Performed By: #### P THNCA ####[address] [address] Lab Director: Jimenez Pruett MD#### RENP, MG, URI, CBC ####[address] [place] [address] Lab Director: Eder Herrera MD CO2 [Moles/Vol] 24 mmol/L Normal 20-31 [facility] Comment on above: Performed By: #### P THNCA ####[facility] [place] [address] Lab Director: Jimenez Pruett MD#### RENP, MG, URI, CBC ####[address] [place], [place] 5171083 Lab Director: Eder Herrera MD Creatinine [Mass/Vol] 2.1 mg/dL High 0.70-1.[address] [facility] Comment on above: Performed By: #### P THNCA ####[address] [address] Lab Director: Jimenez Pruett MD#### RENP, MG, URI, CBC ####[address] [place], [place] 459[address]83 Lab Director: Eder Herrera MD GFR/1.73 sq M.predicted among non-blacks MDRD (S/P/Bld) [Vol rate/Area] 34 mL/min/{1.73_m2} Low >60 [facility] Comment on above: Result Comment: Thes [...] tubular secretion. Performed By: #### P THNCA ####[facility] [address] [place] [address] Lab Director: Jimenez Pruett MD#### RENP, MG, URI, CBC ####[address] [place], [place] 9[address] Lab Director: Eder Herrera MD Glucose [Mass/Vol] 169 mg/dL High 74-99 [facility] Comment on above: Performed By: #### P THNCA ####[address] [place] [address] Lab Director: Jimenez Pruett MD#### RENP, MG, URI, CBC ####[address] [place] [address] Lab Director: Eder Herrera MD Phosphorus, Inorg. 2.5 mg/dL Normal 2.5-4.5 [facility] Comment on above: Performed By: #### P THNCA ####[address] [address] Lab Director: Jimenez Pruett MD#### RENP, MG, URI, CBC ####[address] [place] [address] Lab Director: Eder Herrera MD Potassium [Moles/Vol] 4.5 mmol/L Normal 3.7-5.[address] [facility] Comment on above: Performed By: #### P THNCA ####[address] [address] Lab Director: Jimenez Pruett MD#### RENSpring, MG, URI, CBC ####[address] [place], [place] [address]228[address] Lab Director: Eder Herrera MD Sodium [Moles/Vol] 135 mmol/L Low 136-145 [facility] Comment on above: Performed By: #### P THNCA ####[address] [address] Lab Director: Jimenez Pruett MD#### RENP, MG, URI, CBC ####[address] [place], [place] 7805483 Lab Director: Eder Herrera MD Urea nitrogen [Mass/Vol] 45 mg/dL High 8-23 [facility] Comment on above: Performed By: #### P THNCA ####[address] [place], [place] [address] Lab Director: Jimenez Pruett MD#### RENP, MG, URI, CBC ####[address] , [place] 4734083 Lab Director: Eder Herrera MD UA w/Reflex Cultureon 2024 Bilirubin, SemiQt,Ur Negative Normal NEG [facility] Comment on above: Performed By: #### U AX, UMICAO, URTPRT ####[address] [place] [address] Lab Director: Eder Herrera MD Blood, Urine Negative Normal NEG [facility] Comment on above: Performed By: #### U AX, UMICAO, URTPRT ####[address] [place] [address] Lab Director: Eder Herrera MD Clarity (U) Clear Normal CLEAR [facility] Comment on above: Performed By: #### U AX, UMICAO, URTPRT ####[address] , [place] 0[address] Lab Director: Eder Herrera MD Color (U) Yellow Normal YEL [facility] Comment on above: Performed By: #### U AX, UMICAO, URTPRT ####[address] [place] [address] Lab Director: Eder Herrera MD Glucose Ql (U) 3+ mg/dL Abnormal NEG [facility] Comment on above: Performed By: #### U AX, UMICAO, URTPRT ####[address] , [place] 9[address]83 Lab Director: Eder Herrera MD Ketones Ql (U) Negative Normal NEG [facility] Comment on above: Performed By: #### U AX, UMICAO, URTPRT ####[address] [place] [address] Lab Director: Eder Herrera MD Leukocyte esterase Test strip Ql (U) Negative Normal NEG [facility] Comment on above: Performed By: #### U AX, UMICAO, URTPRT ####[address] [place] [address] [facility] Director: Eder Herrera MD Nitrite,Ur Negative Normal NEG [facility] Comment on above: Performed By: #### U AX, UMICAO, URTPRT ####[address] [place] [address] lab Director: Eder Herrera MD PH,Ur 6.0 Normal 5.0-9.0 [facility] Comment on above: Performed By: #### U AX, UMICAO, URTPRT ####[address] [place] [address] lab Director: Eder Herrera MD Protein Ql (U) Negative Normal NEG [facility] Comment on above: Performed By: #### U AX, UMICAO, URTPRT ####[address] [place] [address] lab Director: Eder Herrera MD Spec. Enochs,Ur 1.010 Normal 1.010-1.020 [facility] Comment on above: Performed By: #### U AX, UMICAO, URTPRT ####[address] [place] [address] lab Director: Eder Herrera MD Urobilinogen,Ur Normal Normal 0.0-1.0 [facility] Comment on above: Performed By: #### U AX, UMICAO, URTPRT ####[address] [place] [address] lab Director: Eder Herrera MD Uric Acidon 09-20-2024 Urate [Mass/Vol] 5.3 mg/dL 3.4 - 7.0 mg/dL [facility] Urate [Mass/Vol] 5.3 mg/dL Normal 3.4-7.0 [facility] Comment on above: Performed By: #### P THNCA ####[facility] [address] [place], [place] [address] lab Director: Jimenez Pruett MD#### RENP, MG, URI, CBC ####[facility] [place] [address] lab Director: Eder Herrera MD Urinalysis with Reflex to Cu ltureon 09-20-2024 Bilirubin Ql (U) Negative NEGATIVE [facility] Clarity (U) Clear Clear [facility] Color (U) Yellow Yellow [facility] Glucose Test strip (U) [Mass/Vol] 3+ Abnormal NEGATIVE mg/dL [facility] Hemoglobin Auto test strip Ql (U) Negative NEGATIVE [facility] Interpretation and review of laboratory results Abnormal [facility] Ketones (U) [Mass/Vol] Negative NEGAT PAO mg/dL [facility] Leukocyte esterase Test strip Ql (U) Negative NEGATIVE [facility] Nitrite Ql (U) Negative NEGATIVE [facility] pH (U) 6 [pH] 5.0 - 9.0 [facility] Protein (U) [Mass/Vol] Negative NEGAT PAO mg/dL [facility] Specific gravity (U) [Rel density] 1.01 1.010 - 1.020 [facility] Urobilinogen Qn (U) Normal 0.0 - 1. 0 EU/dL [facility] Urinalysis,Microon 5 Epithelial cells LM Ql (Urine sed) None Normal 0-5 [facility] Comment on above: Performed By: #### U AX, UMICAO, URTPRT ####[facility] [place] [address] lab Director: Eder Herrera MD Urine RBC's None Normal 0-2 [facility] Comment on above: Performed By: #### U AX, UMICAO, URTPRT ####[facility] [place] [address] lab Director: Eder Herrera MD Urine WBC's None Normal 0-5 [facility] Comment on above: Performed By: #### U AX, UMICAO, URTPRT ####[facility] [place] [address] lab Director: Eder Herrera MD XR TOE RIGHT (MIN 2 VIEWS)on 09-09-2024 XR TOE RIGHT (MIN 2 VIEWS) Normal [facility] Magnesiumon 08-23-2024 Magnesium [Mass/Vol] 2.2 mg/dL 1.6 - 2 .4 mg/dL [facility] Magnesium [Mass/Vol] 2.2 mg/dL Normal 1.6-2.4 [facility] Comment on above: Performed By: #### M G, RENP ####[address] [place] [address] lab Director: Eder Herrera MD No Panel Informationon 08-23 [facility] Renal Function Panelon 08-23 Albumin [Mass/Vol] 4.2 g/dL 3.5 - 5.2 g/dL [facility] Anion gap [Moles/Vol] 10 mmol/L 9 - 16 mmol/L [facility] Calcium [Mass/Vol] 10.5 mg/dL High 8.6 - 10. 4 mg/dL [facility] Chloride [Moles/Vol] 103 mmol/L 98 - 10 7 mmol/L [facility] CO2 [Moles/Vol] 24 mmol/L 20 - 31 mmol/L [facility] Creatinine [Mass/Vol] 1.6 mg/dL High 0.70 - 1.20 mg/dL [facility] Est, Glom Filt Rate 48 Low - PINF [facility] Comment on above: These results are [...] 147 mg/dL High 74 - 99 mg/dL [facility] Interpretation and review of laboratory results Abnormal [facility] Phosphate [Mass/Vol] 2.4 mg/dL Low 2.5 - 4 .5 mg/dL [facility] Potassium [Moles/Vol] 4.9 mmol/L 3.7 - 5.3 mmol/L [facility] Sodium [Moles/Vol] 137 mmol/L 136 - 145 mmol/L [facility] Urea nitrogen [Mass/Vol] 29 mg/dL High 8 - 23 mg/dL [facility] Urea nitrogen/Creatinine [Mass ratio] 18 mg/mg 9 - 20 [facility] Albumin [Mass/Vol] 4.2 g/dL Normal 3.5-5.2 [facility] Comment on above: Performed By: #### M G, RENP ####[address] [place] [address] lab Director: Eder Herrera MD Anion gap [Moles/Vol] 10 mmol/L Normal 9-[address] [facility] Comment on above: Performed By: #### M G, RENP ####[facility] [place] [address] lab Director: Eder Herrera MD BUN/CRE Ratio 18 Normal 9-20 [facility] Comment on above: Performed By: #### M G, RENP ####[facility] [place] [address] lab Director: Eder Herrera MD Calcium [Mass/Vol] 10.5 mg/dL High 8.6-10.4 [facility] Comment on above: Performed By: #### M Yifan, RENP ####[facility] , [place] 7[address]83 Lab Director: Eder Herrera MD Chloride [Moles/Vol] 103 mmol/L Normal 98-107 [facility] Comment on above: Performed By: #### M G, RENP ####[facility] [place] [address] Lab Director: Eder Herrera MD CO2 [Moles/Vol] 24 mmol/L Normal 20-31 [facility] Comment on above: Performed By: #### M Yifan, RENP ####[address] [place] [address] Lab Director: Eder Herrera MD Creatinine [Mass/Vol] 1.6 mg/dL High 0.70-1.[address] [facility] Comment on above: Performed By: #### Bettina Saha, RENP ####[address] [place] [address] Lab Director: Eder Herrera MD GFR/1.73 sq M.predicted among non-blacks MDRD (S/P/Bld) [Vol rate/Area] 48 mL/min/{1.73_m2} Low >60 [facility] Comment on above: Result Comment: Thes [...] secretion. Performed By: #### M Yifan, RENP ####[address] [place] [address] lab Director: Eder Herrera MD Glucose [Mass/Vol] 147 mg/dL High 74-99 [facility] Comment on above: Performed By: #### Bettina Saha, RENP ####[address] , [place] 5654[address] Lab Director: Eder Herrera MD Phosphorus, Inorg. 2.4 mg/dL Low 2.5-4.5 [facility] Comment on above: Performed By: #### Bettina Saha, RENP ####[address] , [place] [id number] Lab Director: Eder Herrera MD Potassium [Moles/Vol] 4.9 mmol/L Normal 3.7-5.[address] [facility] Comment on above: Performed By: #### Bettina Saha, RENP ####[address] , [place] [id number] Lab Director: Eder Herrera MD Sodium [Moles/Vol] 137 mmol/L Normal 136-145 [facility] Comment on above: Performed By: #### Bettina Saha, RENP ####[address] , [place] 301[address]83 Lab Director: Eder Herrera MD Urea nitrogen [Mass/Vol] 29 mg/dL High 8-23 [facility] Comment on above: Performed By: #### Bettina Saha, RENP ####[address] , [place] [id number] Lab Director: Eder Herrera MD XR TOE RIGHT (MIN 2 VIEWS)on 08-20-2024 XR TOE RIGHT (MIN 2 VIEWS) Normal [facility] Cult,Woundon 08-19-2024 Cult,Wound Susceptible [facility] Comment on above: Performed By: #### W DC ####[address] [id number] Lab Director: Jimenez Pruett [address] , [place] [id number] lab Director: Eder Herrera MD Basophils Auto (Bld) [#/Vol] on 08-02-2024 Basophils (Bld) [#/Vol] Automated basoph il count 0.0-0.1 [facility] Basophils/100 WBC Auto (Bld) on 08-02-2024 Basophils/100 WBC (Bld) Automated basophil % 0. 2-2.0 [facility] Eosinophils/100 WBC Auto (Bl d)on 08-02-2024 Eosinophils/100 WBC (Bld) Automated eosinophil % 0.9-7.0 [facility] Erythrocyte distribution wid th Auto (RBC) [Ratio]on 08-02-2024 Erythrocyte distribution width (RBC) [Ratio] Erythrocyte distribution width [Ratio] by Automated count 11.0-15.0 [facility] Estimated glomerular filtrat ion rate (GFR) non- Americanon 08-02-2024 GFR/1.73 sq M.predicted among non-blacks MDRD (S/P/Bld) [Vol rate/Area] Estimated glomerular filtration rate (GFR) non- Low >=60 mL/min/1.73 m 2 [facility] Hematocrit Auto (Bld) [Volum e fraction]on 08-02-2024 Hematocrit (Bld) [Volume fraction] Hematocrit [Volume Fraction] of Blood by Automated count Low 42.0-54.0 [facility] Hemoglobin [Mass/volume] in Bloodon 08-02-2024 Hemoglobin (Bld) [Mass/Vol] Hemoglobin [Mass/volume] in Blood Low 14.0-18.0 [facility] Laboratory - Chemistry and C hemistry - challengeon 08-02-2024 Calcium [Mass/Vol] 8.4 mg/dL Low 8.5-10.1 [facility] Chloride [Moles/Vol] 99 mmol/L 98-107 [facility] CO2 [Moles/Vol] 27.6 mmol/L 21.0-32.0 [facility] Creatinine [Mass/Vol] 2.35 mg/dL High 0.70-1.30 [facility] GFR/1.73 sq M.predicted MDRD (S/P/Bld) [Vol rate/Area] 34 mL/min/{1.73_m2} Low >=60 mL/min/1.73 m 2 [facility] Glucose [Mass/Vol] 132 mg/dL High 74-106 [facility] Potassium [Moles/Vol] 3.7 mmol/L 3.5-5.1 [facility] Sodium [Moles/Vol] 135 mmol/L Low 136-145 [facility] Urea nitrogen [Mass/Vol] 68.0 mg/dL High 7.0-18.0 [facility] Urea nitrogen/Creatinine [Mass ratio] 28.9 mg/mg [facility] Laboratory - Hematology and Cell countson 08-02-2024 Immature granulocytes/100 WBC (Bld) 0.5 % 0.0-0.5 [facility] Leukocytes [#/volume] correc yaneth for nucleated erythrocytes in Blood by Automated counon 08-02-2024 WBC corrected for nucl RBC Auto (Bld) [#/Vol] Leukocytes [#/volume] corrected for nucleated erythrocytes in Blood by Automated coun 4.0-11.0 [facility] Lymphocytes Auto (Bld) [#/Vo l]on 08-02-2024 Lymphocytes (Bld) [#/Vol] Lymphocytes [#/volume] in Blood by Automated count 1.2-3.8 [facility] Lymphocytes/100 WBC Auto (Bl d)on 08-02-2024 Lymphocytes/100 WBC (Bld) Lymphocytes/100 leukocytes in Blood by Automated count 20.5-60.0 [facility] MCH Auto (RBC) [Entitic mass ]on 08-02-2024 MCH (RBC) [Entitic mass] MCH [Entitic mass] by Automated count 25.9-34.0 [facility] MCHC Auto (RBC) [Mass/Vol]on 08-02-2024 MCHC (RBC) [Mass/Vol] MCHC [Mass/volume] by Automated count 29.9-35.2 [facility] MCV Auto (RBC) [Entitic vol] on 08-02-2024 MCV (RBC) [Entitic vol] MCV [Entitic vol ume] by Automated count 80.0-94.0 [facility] Monocytes Auto (Bld) [#/Vol] on 08-02-2024 Monocytes (Bld) [#/Vol] Automated blood monocyte count High 0.3-0.8 [facility] Monocytes/100 WBC Auto (Bld) on 08-02-2024 Monocytes/100 WBC (Bld) Automated monocyte % High 1. 7-12.0 [facility] Neutrophils Auto (Bld) [#/Vo l]on 08-02-2024 Neutrophils (Bld) [#/Vol] Neutrophils [#/volume] in Blood by Automated count 1.4-6.5 [facility] Neutrophils/100 WBC Auto (Bl d)on 08-02-2024 Neutrophils/100 WBC (Bld) Automated neutrophil % 43.0-75.0 [facility] No Panel Informationon 08-02 Eosinophils # (Auto) 0.2 10 3/uL 0.0-0.7 [facility] Immature Granulocyte # (Auto) 0.03 10 3/uL 0.00-0.03 [facility] Platelet mean volume Auto (B ld) [Entitic vol]on 08-02-2024 Platelet mean volume (Bld) [Entitic vol] Platelet mean volume [Entitic volume] in Blood by Automated count 9.5-13.5 [facility] Platelets Auto (Bld) [#/Vol] on 08-02-2024 Platelets (Bld) [#/Vol] Platelets [#/vol ume] in Blood by Automated count 150-450 [facility] RBC Auto (Bld) [#/Vol]on RBC (Bld) [#/Vol] Erythrocytes [#/volume] in Blood by Automated count Low 4.70-6.10 [facility] Serum or plasma anion gap de terminationon 08-02-2024 Anion gap [Moles/Vol] Serum or plasma an ion gap determination [facility] Basophils Auto (Bld) [#/Vol] on 07-30-2024 Basophils (Bld) [#/Vol] Automated basoph il count 0.0-0.1 [facility] Basophils/100 WBC Auto (Bld) on 07-30-2024 Basophils/100 WBC (Bld) Automated basophil % 0. 2-2.0 [facility] Eosinophils/100 WBC Auto (Bl d)on 07-30-2024 Eosinophils/100 WBC (Bld) Automated eosinophil % 0.9-7.0 [facility] Erythrocyte distribution wid th Auto (RBC) [Ratio]on 07-30-2024 Erythrocyte distribution width (RBC) [Ratio] Erythrocyte distribution width [Ratio] by Automated count 11.0-15.0 [facility] Estimated glomerular filtrat ion rate (GFR) non- Americanon 07-30-2024 GFR/1.73 sq M.predicted among non-blacks MDRD (S/P/Bld) [Vol rate/Area] Estimated glomerular filtration rate (GFR) non- Low >=60 mL/min/1.73 m 2 [facility] Globulin Calc (S) [Mass/Vol] on 07-30-2024 Globulin (S) [Mass/Vol] Serum globulin measurement by calculation (mass/volume) [facility] Hematocrit Auto (Bld) [Volum e fraction]on 07-30-2024 Hematocrit (Bld) [Volume fraction] Hematocrit [Volume Fraction] of Blood by Automated count Low 42.0-54.0 [facility] Hemoglobin [Mass/volume] in Bloodon 07-30-2024 Hemoglobin (Bld) [Mass/Vol] Hemoglobin [Mass/volume] in Blood Low 14.0-18.0 [facility] Laboratory - Chemistry and C hemistry - challengeon 07-30-2024 Bilirubin Ql (U) Negative NEGATIVE [facility] Glucose (U) [Mass/Vol] 500 mg/dL Abnormal NEGATIVE [facility] Ketones Ql (U) Negative NEGATIVE [facility] pH (U) 5.5 [pH] 5.0-9.0 [facility] Specific gravity (U) [Rel density] <=1.005 Abnormal 1.005-1.025 [facility] Urobilinogen Qn (U) 0.2 {Fabiana'U}/dL 0.2-1.0 [facility] Albumin [Mass/Vol] 3.2 g/dL Low 3.4-5.0 [facility] ALP [Catalytic activity/Vol] 90 U/L 46-116 [facility] ALT [Catalytic activity/Vol] 27 U/L 16-63 [facility] AST [Catalytic activity/Vol] 22 U/L 15-37 [facility] Bilirubin [Mass/Vol] 0.4 mg/dL 0.2-1.0 [facility] Bilirubin.direct [Mass/Vol] 0.1 mg/dL 0.0-0.2 [facility] Calcium [Mass/Vol] 8.6 mg/dL 8.5-10.1 [facility] Chloride [Moles/Vol] 94 mmol/L Low 98-107 [facility] CO2 [Moles/Vol] 29.0 mmol/L 21.0-32.0 [facility] Creatinine [Mass/Vol] 3.35 mg/dL High 0.70-1.30 [facility] GFR/1.73 sq M.predicted MDRD (S/P/Bld) [Vol rate/Area] 23 mL/min/{1.73_m2} Low >=60 mL/min/1.73 m 2 [facility] Glucose [Mass/Vol] 222 mg/dL High 74-106 [facility] Lipase [Catalytic activity/Vol] 25.0 U/L 16.0-77.0 [facility] Potassium [Moles/Vol] 4.6 mmol/L 3.5-5.1 [facility] Protein [Mass/Vol] 7.5 g/dL 6.4-8.2 [facility] Sodium [Moles/Vol] 134 mmol/L Low 136-145 [facility] Urea nitrogen [Mass/Vol] 75.0 mg/dL High 7.0-18.0 [facility] Urea nitrogen/Creatinine [Mass ratio] 22.4 mg/mg [facility] Laboratory - Hematology and Cell countson 07-30-2024 Immature granulocytes/100 WBC (Bld) 0.5 % 0.0-0.5 [facility] Laboratory - Specimen inform ationon 07-30-2024 Appearance (U) CLEAR CLEAR [facility] Color (U) LT. YELLOW YELLOW [facility] Laboratory - Urinalysison Leukocyte esterase Test strip Ql (U) Negative NEGATIVE [facility] Nitrite Ql (U) Negative NEGATIVE [facility] Protein Ql (U) Negative NEG/TRACE [facility] Leukocytes [#/volume] correc yaneth for nucleated erythrocytes in Blood by Automated counon 07-30-2024 WBC corrected for nucl RBC Auto (Bld) [#/Vol] Leukocytes [#/volume] corrected for nucleated erythrocytes in Blood by Automated coun 4.0-11.0 [facility] Lymphocytes Auto (Bld) [#/Vo l]on 07-30-2024 Lymphocytes (Bld) [#/Vol] Lymphocytes [#/volume] in Blood by Automated count 1.2-3.8 [facility] Lymphocytes/100 WBC Auto (Bl d)on 07-30-2024 Lymphocytes/100 WBC (Bld) Lymphocytes/100 leukocytes in Blood by Automated count Low 20.5-60.0 [facility] MCH Auto (RBC) [Entitic mass ]on 07-30-2024 MCH (RBC) [Entitic mass] MCH [Entitic mass] by Automated count 25.9-34.0 [facility] MCHC Auto (RBC) [Mass/Vol]on 07-30-2024 MCHC (RBC) [Mass/Vol] MCHC [Mass/volume] by Automated count 29.9-35.2 [facility] MCV Auto (RBC) [Entitic vol] on 07-30-2024 MCV (RBC) [Entitic vol] MCV [Entitic vol ume] by Automated count 80.0-94.0 [facility] Monocytes Auto (Bld) [#/Vol] on 07-30-2024 Monocytes (Bld) [#/Vol] Automated blood monocyte count 0.3-0.8 [facility] Monocytes/100 WBC Auto (Bld) on 07-30-2024 Monocytes/100 WBC (Bld) Automated monocyte % 1. 7-12.0 [facility] Neutrophils Auto (Bld) [#/Vo l]on 07-30-2024 Neutrophils (Bld) [#/Vol] Neutrophils [#/volume] in Blood by Automated count 1.4-6.5 [facility] Neutrophils/100 WBC Auto (Bl d)on 07-30-2024 Neutrophils/100 WBC (Bld) Automated neutrophil % 43.0-75.0 [facility] No Panel Informationon 07-30 Urine Microscopic Review NO [facility] Urine Occult Blood Negative NEGATIVE [facility] Eosinophils # (Auto) 0.1 10 3/uL 0.0-0.7 [facility] Immature Granulocyte # (Auto) 0.04 10 3/uL High 0.00-0.03 [facility] Platelet mean volume Auto (B ld) [Entitic vol]on 07-30-2024 Platelet mean volume (Bld) [Entitic vol] Platelet mean volume [Entitic volume] in Blood by Automated count 9.5-13.5 [facility] Platelets Auto (Bld) [#/Vol] on 07-30-2024 Platelets (Bld) [#/Vol] Platelets [#/vol ume] in Blood by Automated count 150-450 [facility] RBC Auto (Bld) [#/Vol]on RBC (Bld) [#/Vol] Erythrocytes [#/volume] in Blood by Automated count Low 4.70-6.10 [facility] Serum or plasma albumin/glob ulin mass ratioon 07-30-2024 Albumin/Globulin [Mass ratio] Serum or plasma albumin/globulin mass ratio [facility] Serum or plasma anion gap de terminationon 07-30-2024 Anion gap [Moles/Vol] Serum or plasma an ion gap determination [facility] .eGFRon 07-29-2024 Estimated GFR 21 mL/min/1.73m? Low >=60 [facility] Comment on above: Result Comment: [facility] have implemented the eGFR calculation [...] years Performed By: #### E GFR #### [address] [address] Basic Metabolic Profileon Anion gap [Moles/Vol] 11 mmol/L Normal 4-12 [facility] Comment on above: Performed By: #### C [id number] ####[address] [address] Calcium [Mass/Vol] 8.3 mg/dL Low 8.5-10.3 [facility] Comment on above: Performed By: #### C [id number] ####[address] [address] Chloride [Moles/Vol] 94 mmol/L Low 98-110 [facility] Comment on above: Performed By: #### C [id number] ####[address] [address] CO2 [Moles/Vol] 28 mmol/L Normal 22-32 [facility] Comment on above: Performed By: #### C [id number] ####[address] [address] Creatinine [Mass/Vol] 3.21 mg/dL High 0.61-1.24 [facility] Comment on above: Performed By: #### C [id number] ####[address] [address] Glucose [Mass/Vol] 90 mg/dL Normal 70-99 [facility] Comment on above: Performed By: #### C [id number] ####[address] [address] Potassium [Moles/Vol] 4.1 mmol/L Normal 3.4-4.8 [facility] Comment on above: Performed By: #### C [id number] ####[address] [address] Sodium [Moles/Vol] 133 mmol/L Normal 133-142 [facility] Comment on above: Performed By: #### C [id number] ####[address] [address] Urea nitrogen [Mass/Vol] 72 mg/dL High 8-26 [facility] Comment on above: Performed By: #### C [id number] ####[address] [address] Urea nitrogen/Creatinine [Mass ratio] 22.4 mg/mg High 10.0-20.0 [facility] Comment on above: Performed By: #### C [id number] ####[address] [address] CBCon 07-29-2024 Erythrocyte distribution width (RBC) [Ratio] 13.7 % Normal 11.6-14.8 [facility] Comment on above: Performed By: #### . AMI Initial #### [address] [address] Hematocrit (Bld) [Volume fraction] 30.2 % Low 41.0-53.0 [facility] Comment on above: Performed By: #### . AMI Initial #### [address] [address] Hemoglobin (Bld) [Mass/Vol] 10.4 g/dL Low 13.5-17.5 [facility] Comment on above: Performed By: #### . AMI Initial #### [address] [address] MCH (RBC) [Entitic mass] 31.5 pg Normal 27.0-35.0 [facility] Comment on above: Performed By: #### . AMI Initial #### [address] [address] MCHC 34.5 % Normal 31.0-37.0 [facility] Comment on above: Performed By: #### . AMI Initial #### [address] [address] MCV (RBC) [Entitic vol] 91.4 fL Normal 80.0-100.0 [facility] Comment on above: Performed By: #### . AMI Initial #### [address] [address] Platelet 245 x10*3/mcL Normal 150-450 [facility] Comment on above: Performed By: #### . AMI Initial #### [address] [address] Platelet mean volume (Bld) [Entitic vol] 9.0 fL Normal 6.7-10.6 [facility] Comment on above: Performed By: #### . AMI Initial #### [address] [address] RBC 3.31 x10*6/mcL Low 4.30-5.80 [facility] Comment on above: Performed By: #### . AMI Initial #### [address] [address] WBC 8.1 x10*3/mcL Normal 4.5-11.0 [facility] Comment on above: Performed By: #### . AMI Initial #### [address] [address] Inpatient Clinical Summary 07-29-2024 Inpatient Clinical Summary [address] [address] [phone] [address] [phone] Clinical Summary Person Information Name: Piotr Kerr Age: 63 Years : 1960 Sex: Male PCP: Jorge Pritchett DO Marital Status: Phone: PCP: Race: White Ethnicity: Not or Language: Albanian Visit Id: Visit Reason: Renal Failure Speciality: Acuity: Enc Type: Inpatient Med Service: Medicine-General Arrival: 07/23/2024 09:47:21 Discharge: Dispo Type: Address: [address] [place] [phone] Preferred Communication Mode: Preferred Language: Albanian Discharge [...] Shoe/Cast Shoe 07/27/24 13:25:00 EST, 3 months, [id number], PT RECEIVED A SMALL SHOE, PLEASE DISPENSE [...] fully awake, 07/29/24 14:46:00 EST Insulin Safety [place] 07/23/24 11:04:00 EST, PRN, 1 each insulin [...] range between ( 27.2 and 40.8 ) [place] Auto: 11.8 % -- Norm (more content not included)... Normal [facility] Magnesiumon 07-29-2024 Magnesium [Mass/Vol] 2.0 mg/dL Normal 1.7-2.4 [facility] Comment on above: Performed By: #### . AMI 6 Hr #### [facility] [address] [place] [address] Nephrology Progress Noteon 0 07-29-2024 Nephrology Progress [...] Lymph Auto 20.4 % Low 07/23/24 10:51:00 [place] Auto 11.8 % 07/23/24 10:51:00 Eos Auto 0.9 % 07/23/24 10:51:00 Basophil Auto 0.7 % 07/23/24 10:51:00 Neutro Absolute 5 x10 07/23/24 10:51:00 Lymph Absolute 1.5 x10 07/23/24 10:51:00 [place] Absolute 0.9 x10 07/23/24 10:51:00 Eos Absolute [...] up in 1-2 weeks at our outpatient [place] clinic 2. HTN (hypertension) Chronic baseline history [...] continue on DC Electronically signed by [employer] PRESIDENT AND CMO-ENVIRONMENTAL EDUCATOR, Lluvia Alvarez 07/30/24 14:17 EST As the attending, patient's case was reviewed and discussed with Vaishali (more content not included)... Normal [facility] Neurology Progress Noteon Neurology Progress Note Subjective [...] PRN heparin, 5000 units= 1 mL, Subcutaneous, [id number] Times hydrocodone-acetamino phen 5 mg-325 mg oral [...] mg= 1 mL, IV Push, q2min, PRN [place] 10 mg-325 mg oral tablet, 1 tabs, [...] Werner Sunshine MD 07/29/24 14:10 EST Normal [facility] POC Glucose Randomon 025 Glucose [Mass/Vol] 83 mg/dL Normal 70-99 [facility] Comment on above: Performed By: #### M G #### [place] [id number] Glucose [Mass/Vol] 104 mg/dL High 70-99 [facility] Comment on above: Performed By: #### . AMI Initial #### [address] [address] Phosphoruson 07-29-2024 Phosphate [Mass/Vol] 5.0 mg/dL High 2.5-4.6 [facility] Comment on above: Performed By: #### R ENAL #### [address] [address] .eGFRon 07-28-2024 Estimated GFR 32 mL/min/1.73m? Low >=60 [facility] Comment on above: Result Comment: [facility] have implemented the eGFR calculation [...] = years Performed By: #### E GFR ####[address] [address] CBCon 07-28-2024 Erythrocyte distribution width (RBC) [Ratio] 13.7 % Normal 11.6-14.8 [facility] Comment on above: Performed By: #### . AMI 6 Hr #### [place] [id number] Hematocrit (Bld) [Volume fraction] 31.0 % Low 41.0-53.0 [facility] Comment on above: Performed By: #### . AMI 6 Hr #### [place] [id number] Hemoglobin (Bld) [Mass/Vol] 10.5 g/dL Low 13.5-17.5 [facility] Comment on above: Performed By: #### . AMI 6 Hr #### [place] [id number] MCH (RBC) [Entitic mass] 30.9 pg Normal 27.0-35.0 [facility] Comment on above: Performed By: #### . AMI 6 Hr #### [place] [id number] MCHC 33.8 % Normal 31.0-37.0 [facility] Comment on above: Performed By: #### . AMI 6 Hr #### [place] [id number] MCV (RBC) [Entitic vol] 91.4 fL Normal 80.0-100.0 [facility] Comment on above: Performed By: #### . AMI 6 Hr #### [place] [id number] Platelet 245 x10*3/mcL Normal 150-450 [facility] Comment on above: Performed By: #### . AMI 6 Hr #### [facility] [address] [place] [address] Platelet mean volume (Bld) [Entitic vol] 9.0 fL Normal 6.7-10.6 [facility] Comment on above: Performed By: #### . AMI 6 Hr #### [facility] [address] [place] [address] RBC 3.39 x10*6/mcL Low 4.30-5.80 [facility] Comment on above: Performed By: #### . AMI 6 Hr #### [place] [address] [place] [address] WBC 8.2 x10*3/mcL Normal 4.5-11.0 [facility] Comment on above: Performed By: #### . AMI 6 Hr #### [place] [address] [place] [address] CT Brain w/o Contraston 03-0 CT Brain [...] loss. 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 No mass lesion or mass effect. No hydrocephalus. IMPRESSION: No acute large vascular territory infarct or acute intracranial hemorrhage. If there is clinical concern for acute ischemia recommend MRI brain for further evaluation. Radiation Dose Estimate: CTDI(mGy):0.905613 / / / kVp:120.501254 / mAs:0.535254 / / / DLP(mGy-cm):5.165754Q garrison Part: Head CTDI(mGy):46.317738 / / / kVp:120.394663 / mAs:186.361575 / / / DLP(mGy-cm):789.85400 3Body Part: Head Final Dictated by: Zee Guillen DO Dictated DT/TM: 07.28.2024 7:57 am Signed by: Zee Guillen DO Signed (Electronic Signature): 07.28.2024 7:58 am (If Report Is Signed, Electronically Signed in Other Vendor System) Normal [facility] Magnesiumon 07-28-2024 Magnesium [Mass/Vol] 1.8 mg/dL Normal 1.7-2.4 [facility] Comment on above: Performed By: #### M G #### [place] [id number] Nephrology Progress Noteon 0 07-28-2024 Nephrology Progress [...] Lymph Auto 20.4 % Low 07/23/24 10:51:00 [place] Auto 11.8 % 07/23/24 10:51:00 Eos Auto 0.9 % 07/23/24 10:51:00 Basophil Auto 0.7 % 07/23/24 10:51:00 Neutro Absolute 5 x10 07/23/24 10:51:00 Lymph Absolute 1.5 x10 07/23/24 10:51:00 [place] Absolute 0.9 x10 07/23/24 10:51:00 Eos Absolute [...] PRN heparin, 5000 units= 1 mL, Subcutaneous, [id number] Times hydrocodone-acetamino phen 5 mg-325 mg oral [...] mg= 1 mL, IV Push, q2min, PRN [place] 10 mg-325 mg oral tablet, 1 tabs, [...] -OK t (more content not included)... Normal [facility] Neurology Progress Noteon Neurology Progress Note Subjective [...] PRN heparin, 5000 units= 1 mL, Subcutaneous, [id number] Times hydrocodone-acetamino phen 5 mg-325 mg oral [...] mg= 1 mL, IV Push, q2min, PRN [place] 10 mg-325 mg oral tablet, 1 tabs, [...] Werner Sunshine MD 07/28/24 19:04 EST Normal [facility] POC Glucose Randomon 025 Glucose [Mass/Vol] 173 mg/dL High 70-99 [facility] Comment on above: Performed By: #### C [id number] ####[address] [address] Glucose [Mass/Vol] 113 mg/dL High 70-99 [facility] Comment on above: Performed By: #### R ENAL #### [address] [address] Glucose [Mass/Vol] 128 mg/dL High 70-99 [facility] Comment on above: Performed By: #### C [id number] #### [address] [address] Glucose [Mass/Vol] 133 mg/dL High 70-99 [facility] Comment on above: Performed By: #### . AMI Initial #### [address] [address] Renal Panelon 07-28-2024 Albumin [Mass/Vol] 3.3 g/dL Normal 3.2-4.9 [facility] Comment on above: Performed By: #### R ENAL #### [address] [address] Anion gap [Moles/Vol] 10 mmol/L Normal 4-12 [facility] Comment on above: Performed By: #### R ENAL #### [facility] [address] [place] [address] [place] [address] Calcium [Mass/Vol] 8.1 mg/dL Low 8.5-10.3 [facility] Comment on above: Performed By: #### R ENAL #### [address] [address] Chloride [Moles/Vol] 97 mmol/L Low 98-110 [facility] Comment on above: Performed By: #### R ENAL #### [address] [address] CO2 [Moles/Vol] 26 mmol/L Normal 22-32 [facility] Comment on above: Performed By: #### R ENAL #### [address] [address] Creatinine [Mass/Vol] 2.26 mg/dL High 0.61-1.24 [facility] Comment on above: Performed By: #### R ENAL #### [address] [address] Glucose [Mass/Vol] 125 mg/dL High 70-99 [facility] Comment on above: Performed By: #### R ENAL #### [address] [address] Phosphate [Mass/Vol] 4.3 mg/dL Normal 2.5-4.6 [facility] Comment on above: Performed By: #### R ENAL #### [address] [address] Potassium [Moles/Vol] 4.0 mmol/L Normal 3.4-4.8 [facility] Comment on above: Performed By: #### R ENAL #### [address] [address] Sodium [Moles/Vol] 133 mmol/L Normal 133-142 [facility] Comment on above: Performed By: #### R ENAL #### [address] [address] Urea nitrogen [Mass/Vol] 62 mg/dL High 8-26 [facility] Comment on above: Performed By: #### R ENAL #### [address] [address] Urea nitrogen/Creatinine [Mass ratio] 27.4 mg/mg High 10.0-20.0 [facility] Comment on above: Performed By: #### R ENAL #### [address] [address] .AMI 2 Hron 07-27-2024 2 Hour Myoglobin 98.6 ng/mL Normal 17.4-105.7 [facility] Comment on above: Performed By: #### . AMI 2 Hour ####[address] [address] 2 Hour Troponin <0.03 Normal 0.00-0.03 [facility] Comment on above: Result Comment: An i ncreased Troponin-I value, in the absence of myocardial ischemia, may indicate other etiologies of cardiac damage. 99th Percentile Cutoff for Negative/Positive: Negative <= 0.03 Positive >= 0.04 Performed By: #### . AMI 2 Hour ####[address] [address] .AMI 6 Hron 07-27-2024 6 Hour Myoglobin 87.9 ng/mL Normal 17.4-105.7 [facility] Comment on above: Performed By: #### . AMI 6 Hr #### [address] [address] 6 Hour Troponin <0.03 Normal 0.00-0.03 [facility] Comment on above: Result Comment: An i ncreased Troponin-I value, in the absence of myocardial ischemia, may indicate other etiologies of cardiac damage. 99th Percentile Cutoff for Negative/Positive: Negative <= 0.03 Positive >= 0.04 Performed By: #### . AMI 6 Hr #### [address] [place] [address] .AMI Initon 07-27-2024 Initial Myoglobin 97.8 ng/mL Normal 17.4-105.7 [facility] Comment on above: Performed By: #### . AMI Initial #### [address] [address] Initial Troponin <0.03 Normal 0.00-0.03 [facility] Comment on above: Result Comment: An i ncreased Troponin-I value, in the absence of myocardial ischemia, may indicate other etiologies of cardiac damage. 99th Percentile Cutoff for Negative/Positive: Negative <= 0.03 Positive >= 0.04 Performed By: #### . AMI Initial #### [address] [address] .eGFRon 07-27-2024 Estimated GFR 28 mL/min/1.73m? Low >=60 [facility] Comment on above: Result Comment: [facility] have implemented the eGFR calculation [...] years Performed By: #### R ENAL #### [address] [address] CBCon 07-27-2024 Erythrocyte distribution width (RBC) [Ratio] 13.5 % Normal 11.6-14.8 [facility] Comment on above: Performed By: #### R ENAL #### [address] [address] Hematocrit (Bld) [Volume fraction] 31.0 % Low 41.0-53.0 [facility] Comment on above: Performed By: #### R ENAL #### [address] [address] Hemoglobin (Bld) [Mass/Vol] 10.7 g/dL Low 13.5-17.5 [facility] Comment on above: Performed By: #### R ENAL #### [address] [address] MCH (RBC) [Entitic mass] 31.4 pg Normal 27.0-35.0 [facility] Comment on above: Performed By: #### R ENAL #### [address] [address] MCHC 34.7 % Normal 31.0-37.0 [facility] Comment on above: Performed By: #### R ENAL #### [address] [address] MCV (RBC) [Entitic vol] 90.6 fL Normal 80.0-100.0 [facility] Comment on above: Performed By: #### R ENAL #### [address] [address] Platelet 244 x10*3/mcL Normal 150-450 [facility] Comment on above: Performed By: #### R ENAL #### [address] [address] Platelet mean volume (Bld) [Entitic vol] 9.6 fL Normal 6.7-10.6 [facility] Comment on above: Performed By: #### R ENAL #### [address] [address] RBC 3.42 x10*6/mcL Low 4.30-5.80 [facility] Comment on above: Performed By: #### R ENAL #### [facility] [address] [place] [address] WBC 9.1 x10*3/mcL Normal 4.5-11.0 [facility] Comment on above: Performed By: #### R ENAL #### [facility] [address] [place] [address] Magnesiumon 07-27-2024 Magnesium [Mass/Vol] 2.0 mg/dL Normal 1.7-2.4 [facility] Comment on above: Performed By: #### M G #### [address] [address] Nephrology Progress Noteon 0 07-27-2024 Nephrology Progress [...] Lymph Auto 20.4 % Low 07/23/24 10:51:00 [place] Auto 11.8 % 07/23/24 10:51:00 Eos Auto 0.9 % 07/23/24 10:51:00 Basophil Auto 0.7 % 07/23/24 10:51:00 Neutro Absolute 5 x10 07/23/24 10:51:00 Lymph Absolute 1.5 x10 07/23/24 10:51:00 [place] Absolute 0.9 x10 07/23/24 10:51:00 Eos Absolute [...] PRN heparin, 5000 units= 1 mL, Subcutaneous, [id number] Times hydrocodone-acetamino phen 5 mg-325 mg oral [...] Jardiance 10mg (more content not included)... Normal [facility] POC Glucose Randomon 025 Glucose [Mass/Vol] 158 mg/dL High 70-99 [facility] Comment on above: Performed By: #### C [id number] #### [address] [address] Glucose [Mass/Vol] 161 mg/dL High 70-99 [facility] Comment on above: Performed By: #### . AMI Initial #### [address] [address] Glucose [Mass/Vol] 198 mg/dL High 70-99 [facility] Comment on above: Performed By: #### C [id number] #### [address] [address] Glucose [Mass/Vol] 124 mg/dL High 70-99 [facility] Comment on above: Performed By: #### C [id number] #### [address] [address] Renal Panelon 07-27-2024 Albumin [Mass/Vol] 3.6 g/dL Normal 3.2-4.9 [facility] Comment on above: Performed By: #### R ENAL #### [address] [address] Anion gap [Moles/Vol] 14 mmol/L High 4-12 [facility] Comment on above: Performed By: #### R ENAL #### [address] [address] Calcium [Mass/Vol] 8.3 mg/dL Low 8.5-10.3 [facility] Comment on above: Performed By: #### R ENAL #### [address] [address] Chloride [Moles/Vol] 98 mmol/L Normal 98-110 [facility] Comment on above: Performed By: #### R ENAL #### [address] [address] CO2 [Moles/Vol] 25 mmol/L Normal 22-32 [facility] Comment on above: Performed By: #### R ENAL #### [address] [address] Creatinine [Mass/Vol] 2.49 mg/dL High 0.61-1.24 [facility] Comment on above: Performed By: #### R ENAL #### [address] [address] Glucose [Mass/Vol] 114 mg/dL High 70-99 [facility] Comment on above: Performed By: #### R ENAL #### [address] [address] Phosphate [Mass/Vol] 4.5 mg/dL Normal 2.5-4.6 [facility] Comment on above: Performed By: #### R ENAL #### [address] [place] [address] Potassium [Moles/Vol] 3.7 mmol/L Normal 3.4-4.8 [facility] Comment on above: Performed By: #### R ENAL #### [address] [place] [address] Sodium [Moles/Vol] 137 mmol/L Normal 133-142 [facility] Comment on above: Performed By: #### R ENAL #### [address] [address] Urea nitrogen [Mass/Vol] 65 mg/dL High 8-26 [facility] Comment on above: Performed By: #### R ENAL #### [address] [address] Urea nitrogen/Creatinine [Mass ratio] 26.1 mg/mg High 10.0-20.0 [facility] Comment on above: Performed By: #### R ENAL #### [address] [address] .eGFRon 07-26-2024 Estimated GFR 28 mL/min/1.73m? Low >=60 [facility] Comment on above: Result Comment: [facility] have implemented the eGFR calculation [...] Performed By: #### . AMI Initial #### [address] [address] CBCon 07-26-2024 Erythrocyte distribution width (RBC) [Ratio] 13.5 % Normal 11.6-14.8 [facility] Comment on above: Performed By: #### . AMI 6 Hr #### [address] [address] Hematocrit (Bld) [Volume fraction] 32.5 % Low 41.0-53.0 [facility] Comment on above: Performed By: #### . AMI 6 Hr #### [id number] Hemoglobin (Bld) [Mass/Vol] 11.0 g/dL Low 13.5-17.5 [facility] Comment on above: Performed By: #### . AMI 6 Hr #### [id number] MCH (RBC) [Entitic mass] 30.7 pg Normal 27.0-35.0 [facility] Comment on above: Performed By: #### . AMI 6 Hr #### [id number] MCHC 33.9 % Normal 31.0-37.0 [facility] Comment on above: Performed By: #### . AMI 6 Hr #### [id number] MCV (RBC) [Entitic vol] 90.5 fL Normal 80.0-100.0 [facility] Comment on above: Performed By: #### . AMI 6 Hr #### [id number] Platelet 269 x10*3/mcL Normal 150-450 [facility] Comment on above: Performed By: #### . AMI 6 Hr #### [id number] Platelet mean volume (Bld) [Entitic vol] 9.7 fL Normal 6.7-10.6 [facility] Comment on above: Performed By: #### . AMI 6 Hr #### [id number] RBC 3.59 x10*6/mcL Low 4.30-5.80 [facility] Comment on above: Performed By: #### . AMI 6 Hr #### [id number] WBC 8.2 x10*3/mcL Normal 4.5-11.0 [facility] Comment on above: Performed By: #### . AMI 6 Hr #### [address] [address] Magnesiumon 07-26-2024 Magnesium [Mass/Vol] 2.0 mg/dL Normal 1.7-2.4 [facility] Comment on above: Performed By: #### M G #### [address] [address] Nephrology Progress Noteon 0 07-26-2024 Nephrology Progress [...] Lymph Auto 20.4 % Low 07/23/24 10:51:00 [place] Auto 11.8 % 07/23/24 10:51:00 Eos Auto 0.9 % 07/23/24 10:51:00 Basophil Auto 0.7 % 07/23/24 10:51:00 Neutro Absolute 5 x10 07/23/24 10:51:00 Lymph Absolute 1.5 x10 07/23/24 10:51:00 [place] Absolute 0.9 x10 07/23/24 10:51:00 Eos Absolute [...] PRN heparin, 5000 units= 1 mL, Subcutaneous, [id number]-Abhmhigv Times hydrocodone-acetamino phen 5 mg-325 mg oral [...] to resume Losartan at 50mg dosage from [facility] (more content not included)... Normal [facility] POC Glucose Randomon 025 Glucose [Mass/Vol] 249 mg/dL High 70-99 [facility] Comment on above: Performed By: #### C [id number] #### [facility] [address] [place] [address] Glucose [Mass/Vol] 230 mg/dL High 70-99 [facility] Comment on above: Performed By: #### C [id number] ####[facility] [place] [address] Glucose [Mass/Vol] 320 mg/dL High 70-99 [facility] Comment on above: Performed By: #### E GFR #### [facility] [address] [place] [address] Glucose [Mass/Vol] 215 mg/dL High 70-99 [facility] Comment on above: Performed By: #### C [id number] #### [address] [address] Progress Note-Nurseon 2024 Progress Note-Nurse Wound care reassessment completed. Right hallux was debrided at bedside by psychology fellow yesterday. Orders in place to start Silvadene [...] by Mei Villaseñor 07/26/24 09:14 EST Normal [facility] Renal Panelon 07-26-2024 Albumin [Mass/Vol] 3.6 g/dL Normal 3.2-4.9 [facility] Comment on above: Performed By: #### R ENAL ####[address] [address] Anion gap [Moles/Vol] 14 mmol/L High 4-12 [facility] Comment on above: Performed By: #### R ENAL ####[address] [address] Calcium [Mass/Vol] 8.3 mg/dL Low 8.5-10.3 [facility] Comment on above: Performed By: #### R ENAL ####[address] [address] Chloride [Moles/Vol] 95 mmol/L Low 98-110 [facility] Comment on above: Performed By: #### R ENAL ####[address] [address] CO2 [Moles/Vol] 25 mmol/L Normal 22-32 [facility] Comment on above: Performed By: #### R ENAL ####[address] [address] Creatinine [Mass/Vol] 2.47 mg/dL High 0.61-1.24 [facility] Comment on above: Performed By: #### R ENAL ####[address] [address] Glucose [Mass/Vol] 210 mg/dL High 70-99 [facility] Comment on above: Performed By: #### R ENAL ####[address] [address] Phosphate [Mass/Vol] 4.3 mg/dL Normal 2.5-4.6 [facility] Comment on above: Performed By: #### R ENAL ####[address] [address] Potassium [Moles/Vol] 3.9 mmol/L Normal 3.4-4.8 [facility] Comment on above: Performed By: #### R ENAL ####[address] [address] Sodium [Moles/Vol] 134 mmol/L Normal 133-142 [facility] Comment on above: Performed By: #### R ENAL ####[address] [address] Urea nitrogen [Mass/Vol] 60 mg/dL High 8-26 [facility] Comment on above: Performed By: #### R ENAL ####[address] [address] Urea nitrogen/Creatinine [Mass ratio] 24.3 mg/mg High 10.0-20.0 [facility] Comment on above: Performed By: #### R ENAL ####[address] [address] .eGFRon 07-25-2024 Estimated GFR 29 mL/min/1.73m? Low >=60 [facility] Comment on above: Order Comment: Order added by Discern rule Result Comment: [facility] have implemented the eGFR calculation [...] = years Performed By: #### E GFR ####[address] [address] CBCon 07-25-2024 Erythrocyte distribution width (RBC) [Ratio] 13.6 % Normal 11.6-14.8 [facility] Comment on above: Performed By: #### . AMI 6 Hr #### [address] [address] Hematocrit (Bld) [Volume fraction] 31.0 % Low 41.0-53.0 [facility] Comment on above: Performed By: #### . AMI 6 Hr #### [address] [address] Hemoglobin (Bld) [Mass/Vol] 10.7 g/dL Low 13.5-17.5 [facility] Comment on above: Performed By: #### . AMI 6 Hr #### [address] [address] MCH (RBC) [Entitic mass] 31.4 pg Normal 27.0-35.0 [facility] Comment on above: Performed By: #### . AMI 6 Hr #### [address] [address] MCHC 34.6 % Normal 31.0-37.0 [facility] Comment on above: Performed By: #### . AMI 6 Hr #### [address] [address] MCV (RBC) [Entitic vol] 90.9 fL Normal 80.0-100.0 [facility] Comment on above: Performed By: #### . AMI 6 Hr #### [address] [address] Platelet 252 x10*3/mcL Normal 150-450 [facility] Comment on above: Performed By: #### . AMI 6 Hr #### [address] [address] Platelet mean volume (Bld) [Entitic vol] 9.6 fL Normal 6.7-10.6 [facility] Comment on above: Performed By: #### . AMI 6 Hr #### [address] [address] RBC 3.41 x10*6/mcL Low 4.30-5.80 [facility] Comment on above: Performed By: #### . AMI 6 Hr #### [address] [address] WBC 8.0 x10*3/mcL Normal 4.5-11.0 [facility] Comment on above: Performed By: #### . AMI 6 Hr #### [address] [address] Hgb A1con 07-25-2024 Glucose [Mass/Vol] 203 mg/dL High 68-114 [facility] Comment on above: Result Comment: Math ematical Calc approx. The mean gluc equivalency of A1c Performed By: #### E GFR #### [address] [address] Hgb A1c 8.7 % A1c High 4.0-5.6 [facility] Comment on above: Result Comment: Refe rence Range: 4.0 - 5.6 % Normal 5.7 - 6.4 % Pre-Diabetes > 6.5 % Diabetes Performed By: #### E GFR #### [address] [address] Magnesiumon 07-25-2024 Magnesium [Mass/Vol] 1.7 mg/dL Normal 1.7-2.4 [facility] Comment on above: Performed By: #### M G #### [address] [place] [address] Nephrology Progress Noteon 0 07-25-2024 Nephrology Progress [...] Lymph Auto 20.4 % Low 07/23/24 10:51:00 [place] Auto 11.8 % 07/23/24 10:51:00 Eos Auto 0.9 % 07/23/24 10:51:00 Basophil Auto 0.7 % 07/23/24 10:51:00 Neutro Absolute 5 x10 07/23/24 10:51:00 Lymph Absolute 1.5 x10 07/23/24 10:51:00 [place] Absolute 0.9 x10 07/23/24 10:51:00 Eos Absolute [...] PRN heparin, 5000 units= 1 mL, Subcutaneous, [id number]-[id number] Times hydrocodone-acetamino phen 5 mg-325 mg oral [...] and spironolactone (more content not included)... Normal [facility] POC Glucose Randomon 07-25- 025 Glucose [Mass/Vol] 229 mg/dL High 70-99 [facility] Comment on above: Performed By: #### C [id number] #### [address] [address] Glucose [Mass/Vol] 153 mg/dL High 70-99 [facility] Comment on above: Performed By: #### . AMI 6 Hr #### [address] [address] Glucose [Mass/Vol] 118 mg/dL High 70-99 [facility] Comment on above: Performed By: #### C [id number] #### [address] [address] Glucose [Mass/Vol] 152 mg/dL High 70-99 [facility] Comment on above: Performed By: #### M G #### [address] [address] Glucose [Mass/Vol] 143 mg/dL High 70-99 [facility] Comment on above: Performed By: #### M G #### [address] [address] Progress Note-Nurseon 2024 Progress Note-Nurse Wound care [...] by Bell Espinoza 07/25/24 12:41 EST Normal [facility] Renal Panelon 07-25-2024 Albumin [Mass/Vol] 3.6 g/dL Normal 3.2-4.9 [facility] Comment on above: Performed By: #### R ENAL #### [address] [place] [address] Anion gap [Moles/Vol] 13 mmol/L High 4-12 [facility] Comment on above: Performed By: #### R ENAL #### [address] [place] [address] Calcium [Mass/Vol] 8.0 mg/dL Low 8.5-10.3 [facility] Comment on above: Performed By: #### R ENAL #### [address] [place] [address] Chloride [Moles/Vol] 99 mmol/L Normal 98-110 [facility] Comment on above: Performed By: #### R ENAL #### [address] [place] [address] CO2 [Moles/Vol] 25 mmol/L Normal 22-32 [facility] Comment on above: Performed By: #### R ENAL #### [address] [place] [address] Creatinine [Mass/Vol] 2.42 mg/dL High 0.61-1.24 [facility] Comment on above: Performed By: #### R ENAL #### [address] [place] [address] Glucose [Mass/Vol] 162 mg/dL High 70-99 [facility] Comment on above: Performed By: #### R ENAL #### [address] [place] [address] Phosphate [Mass/Vol] 4.1 mg/dL Normal 2.5-4.6 [facility] Comment on above: Performed By: #### R ENAL #### [address] [place] [address] Potassium [Moles/Vol] 3.7 mmol/L Normal 3.4-4.8 [facility] Comment on above: Performed By: #### R ENAL #### [address] [address] Sodium [Moles/Vol] 137 mmol/L Normal 133-142 [facility] Comment on above: Performed By: #### R ENAL #### [address] [address] Urea nitrogen [Mass/Vol] 73 mg/dL High 8-26 [facility] Comment on above: Performed By: #### R ENAL #### [address] [address] Urea nitrogen/Creatinine [Mass ratio] 30.2 mg/mg High 10.0-20.0 [facility] Comment on above: Performed By: #### R ENAL #### [address] [address] .eGFRon 07-24-2024 Estimated GFR 22 mL/min/1.73m? Low >=60 [facility] Comment on above: Order Comment: Order added by Discern rule Result Comment: [facility] have implemented the eGFR calculation [...] years Performed By: #### E GFR #### [address] [address] CBCon 07-24-2024 Erythrocyte distribution width (RBC) [Ratio] 13.3 % Normal 11.6-14.8 [facility] Comment on above: Performed By: #### E GFR #### [place] [id number] Hematocrit (Bld) [Volume fraction] 32.1 % Low 41.0-53.0 [facility] Comment on above: Performed By: #### E GFR #### [place] [id number] Hemoglobin (Bld) [Mass/Vol] 10.7 g/dL Low 13.5-17.5 [facility] Comment on above: Performed By: #### E GFR #### [address] [address] MCH (RBC) [Entitic mass] 30.7 pg Normal 27.0-35.0 [facility] Comment on above: Performed By: #### E GFR #### [place] [id number] MCHC 33.5 % Normal 31.0-37.0 [facility] Comment on above: Performed By: #### E GFR #### [place] [id number] MCV (RBC) [Entitic vol] 91.9 fL Normal 80.0-100.0 [facility] Comment on above: Performed By: #### E GFR #### [address] [address] Platelet 251 x10*3/mcL Normal 150-450 [facility] Comment on above: Performed By: #### E GFR #### [place] [id number] Platelet mean volume (Bld) [Entitic vol] 9.7 fL Normal 6.7-10.6 [facility] Comment on above: Performed By: #### E GFR #### [address] [address] RBC 3.49 x10*6/mcL Low 4.30-5.80 [facility] Comment on above: Performed By: #### E GFR #### [address] [address] WBC 7.5 x10*3/mcL Normal 4.5-11.0 [facility] Comment on above: Performed By: #### E GFR #### [place] [id number] Ionized Calciumon 07-24-2024 Calcium Ionized 1.02 mmol/L Low 1.12-1.32 [facility] Comment on above: Performed By: #### . AMI 6 Hr #### [place] [address] Magnesiumon 07-24-2024 Magnesium [Mass/Vol] 2.2 mg/dL Normal 1.7-2.4 [facility] Comment on above: Performed By: #### M G #### [place] [id number] Nephrology Progress Noteon 0 07-24-2024 Nephrology Progress [...] Lymph Auto 20.4 % Low 07/23/24 10:51:00 [place] Auto 11.8 % 07/23/24 10:51:00 Eos Auto 0.9 % 07/23/24 10:51:00 Basophil Auto 0.7 % 07/23/24 10:51:00 Neutro Absolute 5 x10 07/23/24 10:51:00 Lymph Absolute 1.5 x10 07/23/24 10:51:00 [place] Absolute 0.9 x10 07/23/24 10:51:00 Eos Absolute [...] PRN heparin, 5000 units= 1 mL, Subcutaneous, [id number]-[id number] Times hydrocodone-acetamino phen 5 mg-325 mg oral [...] level greater (more content not included)... Normal [facility] POC Glucose Randomon 025 Glucose [Mass/Vol] 255 mg/dL High 70-99 [facility] Comment on above: Performed By: #### . AMI 6 Hr #### [address] [address] Glucose [Mass/Vol] 190 mg/dL High 70-99 [facility] Comment on above: Performed By: #### E GFR #### [address] [address] Glucose [Mass/Vol] 276 mg/dL High 70-99 [facility] Comment on above: Performed By: #### E GFR #### [address] [address] Phosphoruson 07-24-2024 Phosphate [Mass/Vol] 4.2 mg/dL Normal 2.5-4.6 [facility] Comment on above: Performed By: #### R ENAL #### [address] [address] Renal Panelon 07-24-2024 Albumin [Mass/Vol] 3.5 g/dL Normal 3.2-4.9 [facility] Comment on above: Performed By: #### C [id number] #### [address] [address] Anion gap [Moles/Vol] 12 mmol/L Normal 4-12 [facility] Comment on above: Performed By: #### C [id number] #### [address] [address] Calcium [Mass/Vol] 7.5 mg/dL Low 8.5-10.3 [facility] Comment on above: Performed By: #### C [id number] #### [address] [address] Chloride [Moles/Vol] 100 mmol/L Normal 98-110 [facility] Comment on above: Performed By: #### C [id number] #### [address] [address] CO2 [Moles/Vol] 23 mmol/L Normal 22-32 [facility] Comment on above: Performed By: #### C [id number] #### [address] [address] Creatinine [Mass/Vol] 3.04 mg/dL High 0.61-1.24 [facility] Comment on above: Performed By: #### C [id number] #### [address] [place] [address] Glucose [Mass/Vol] 135 mg/dL High 70-99 [facility] Comment on above: Performed By: #### C [id number] #### [address] [address] Phosphate [Mass/Vol] 5.0 mg/dL High 2.5-4.6 [facility] Comment on above: Performed By: #### C D:[id number] #### [address] [address] Potassium [Moles/Vol] 4.4 mmol/L Normal 3.4-4.8 [facility] Comment on above: Result Comment: This test result could be falsely elevated due to interference from the hemolyzed condition of the specimen. Performed By: #### C D:[id number] #### [address] [address] Sodium [Moles/Vol] 135 mmol/L Normal 133-142 [facility] Comment on above: Performed By: #### C D:[id number] #### [address] [address] Urea nitrogen [Mass/Vol] 95 mg/dL High 8-26 [facility] Comment on above: Performed By: #### C [id number] #### [address] [address] Urea nitrogen/Creatinine [Mass ratio] 31.2 mg/mg High 10.0-20.0 [facility] Comment on above: Performed By: #### C D:[id number] #### [address] [address] .UA Microscp Aon 07-23-2024 UA Mucus Present Normal Absent [facility] Comment on above: Performed By: #### E GFR #### [address] [address] UA RBC Quant 0 /HPF Normal 0-5 [facility] Comment on above: Performed By: #### E GFR #### [address] [place] [address] UA Squepi Cells Quant <1 Normal 0-29 [facility] Comment on above: Performed By: #### E GFR #### [address] [address] UA WBC Quant 0 /HPF Normal 0-5 [facility] Comment on above: Performed By: #### E GFR #### [address] [address] .eGFRon 07-23-2024 Estimated GFR 15 mL/min/1.73m? Low >=60 [facility] Comment on above: Order Comment: Order added by Discern rule Result Comment: [facility] have implemented the eGFR calculation [...] years Performed By: #### E GFR #### [address] [address] BNPon 07-23-2024 Natriuretic peptide B (Bld) [Mass/Vol] 114 pg/mL High 0-100 [facility] Comment on above: Performed By: #### C D:[id number] #### [address] [address] CBC w/ Diffon 07-23-2024 Erythrocyte distribution width (RBC) [Ratio] 13.5 % Normal 11.6-14.8 [facility] Comment on above: Performed By: #### C BC ####[address] [address] Hematocrit (Bld) [Volume fraction] 32.0 % Low 41.0-53.0 [facility] Comment on above: Performed By: #### C BC ####[id number] Hemoglobin (Bld) [Mass/Vol] 11.1 g/dL Low 13.5-17.5 [facility] Comment on above: Performed By: #### C BC ####[id number] MCH (RBC) [Entitic mass] 31.4 pg Normal 27.0-35.0 [facility] Comment on above: Performed By: #### C BC ####[id number] MCHC 34.7 % Normal 31.0-37.0 [facility] Comment on above: Performed By: #### C BC ####[id number] MCV (RBC) [Entitic vol] 90.6 fL Normal 80.0-100.0 [facility] Comment on above: Performed By: #### C BC ####[id number] Platelet 267 x10*3/mcL Normal 150-450 [facility] Comment on above: Performed By: #### C BC ####[id number] Platelet mean volume (Bld) [Entitic vol] 9.1 fL Normal 6.7-10.6 [facility] Comment on above: Performed By: #### C BC ####[id number] RBC 3.53 x10*6/mcL Low 4.30-5.80 [facility] Comment on above: Performed By: #### C BC ####[address] [place] [address] WBC 7.5 x10*3/mcL Normal 4.5-11.0 [facility] Comment on above: Performed By: #### C BC ####[address] [address] CMPon 07-23-2024 Albumin [Mass/Vol] 4.0 g/dL Normal 3.2-4.9 [facility] Comment on above: Performed By: #### R ENAL #### [address] [address] Albumin/Globulin [Mass ratio] 1.1 {ratio} Normal 1.1-2.2 [facility] Comment on above: Performed By: #### R ENAL #### [address] [address] Alk Phos 61 IU/L Normal 32-91 [facility] Comment on above: Performed By: #### R ENAL #### [address] [address] ALT [Catalytic activity/Vol] 15 U/L Low 17-63 [facility] Comment on above: Performed By: #### R ENAL #### [address] [address] Anion gap [Moles/Vol] 12 mmol/L Normal 4-12 [facility] Comment on above: Performed By: #### R ENAL #### [address] [address] AST [Catalytic activity/Vol] 15 U/L Normal 15-41 [facility] Comment on above: Performed By: #### R ENAL #### [address] [address] Bili Total 0.7 mg/dL Normal 0.3-1.2 [facility] Comment on above: Performed By: #### R ENAL #### [address] [place] [address] Calcium [Mass/Vol] 6.9 mg/dL Low 8.5-10.3 [facility] Comment on above: Performed By: #### R ENAL #### [address] [address] Chloride [Moles/Vol] 98 mmol/L Normal 98-110 [facility] Comment on above: Performed By: #### R ENAL #### [address] [address] CO2 [Moles/Vol] 23 mmol/L Normal 22-32 [facility] Comment on above: Performed By: #### R ENAL #### [address] [address] Creatinine [Mass/Vol] 4.11 mg/dL High 0.61-1.24 [facility] Comment on above: Performed By: #### R ENAL #### [address] [address] Glucose [Mass/Vol] 199 mg/dL High 70-99 [facility] Comment on above: Performed By: #### R ENAL #### [address] [address] Potassium [Moles/Vol] 4.0 mmol/L Normal 3.4-4.8 [facility] Comment on above: Performed By: #### R ENAL #### [address] [address] Protein [Mass/Vol] 7.5 g/dL Normal 6.5-8.1 [facility] Comment on above: Performed By: #### R ENAL #### [address] [address] Sodium [Moles/Vol] 133 mmol/L Normal 133-142 [facility] Comment on above: Performed By: #### R ENAL #### [address] [address] Urea nitrogen [Mass/Vol] 120 mg/dL High 8-26 [facility] Comment on above: Performed By: #### R ENAL #### [address] [address] Urea nitrogen/Creatinine [Mass ratio] 29.2 mg/mg High 10.0-20.0 [facility] Comment on above: Performed By: #### R ENAL #### [address] [address] Diff Autoon 07-23-2024 Baso Absolute 0.1 x10*3/mcL Normal 0.0-0.2 [facility] Comment on above: Performed By: #### C D:[id number] #### [address] [address] Basophils/100 WBC (Bld) 0.7 % Normal 0.0-1.2 [facility] Comment on above: Performed By: #### C D:[id number] #### [address] [address] Eos Absolute 0.1 x10*3/mcL Normal 0.0-0.4 [facility] Comment on above: Performed By: #### C [id number] #### [address] [address] Eosinophils/100 WBC (Bld) 0.9 % Normal 0.0-6.1 [facility] Comment on above: Performed By: #### C [id number] #### [address] [address] Lymph Absolute 1.5 x10*3/mcL Normal 1.0-4.8 [facility] Comment on above: Performed By: #### C D:[id number] #### [address] [address] Lymphocytes/100 WBC (Bld) 20.4 % Low 27.2-40.8 [facility] Comment on above: Performed By: #### C D:[id number] #### [address] [address] [place] Absolute 0.9 x10*3/mcL Normal 0.3-1.1 [facility] Comment on above: Performed By: #### C D:[id number] #### [address] [address] Monocytes/100 WBC (Bld) 11.8 % Normal 4.7-13.9 [facility] Comment on above: Performed By: #### C D:[id number] #### [address] [address] Neutro Absolute 5.0 x10*3/mcL Normal 1.8-7.7 [facility] Comment on above: Performed By: #### C D:[id number] #### [address] [address] Neutro Auto 66.2 % Normal 47.2-70.8 [facility] Comment on above: Performed By: #### C D:[id number] #### [address] [address] Ionized Calciumon 07-23-2024 Calcium Ionized 0.95 mmol/L Low 1.12-1.32 [facility] Comment on above: Performed By: #### M G #### [address] [address] Lactic Acid, Randomon 2024 Lactic Acid Lvl 1.0 mmol/L Normal 0.5-2.0 [facility] Comment on above: Performed By: #### . AMI 6 Hr #### [address] [address] Magnesiumon 07-23-2024 Magnesium [Mass/Vol] 1.7 mg/dL Normal 1.7-2.4 [facility] Comment on above: Performed By: #### R ENAL #### [address] [address] POC Glucose Randomon 025 Glucose [Mass/Vol] 192 mg/dL High 70-99 [facility] Comment on above: Performed By: #### M G #### [address] [address] Glucose [Mass/Vol] 176 mg/dL High 70-99 [facility] Comment on above: Performed By: #### . AMI 6 Hr #### [address] [address] Glucose [Mass/Vol] 191 mg/dL High 70-99 [facility] Comment on above: Performed By: #### C [id number] ####[address] [address] PTH-INTon 07-23-2024 PTH Intact 236 pg/mL High 12-88 [facility] Comment on above: Performed By: #### . AMI 6 Hr #### [address] [address] Phosphoruson 07-23-2024 Phosphate [Mass/Vol] 4.6 mg/dL Normal 2.5-4.6 [facility] Comment on above: Performed By: #### M G #### [address] [address] U Crea Randomon 07-23-2024 Creatinine [Mass/Vol] 54.1 mg/dL Normal [facility] Comment on above: Result Comment: The reference range has not been established for this test on a random urine sample. The test result should be interpreted based on clinical context. Performed By: #### E GFR #### [address] [address] U Eoon 07-23-2024 Eosinophil Smear Urine WBC QNS Normal None [facility] Comment on above: Performed By: #### C [id number] #### [address] [address] UA Clarity Clear Normal Clear [facility] Comment on above: Performed By: #### C D:[id number] #### [address] [address] Ur WBC Qnt for Eos Cnt 0 /HPF Normal 0-5 [facility] Comment on above: Performed By: #### C [id number] #### [address] [address] U Lyteson 07-23-2024 Chloride [Moles/Vol] 62 mmol/L Normal [facility] Comment on above: Performed By: #### E GFR #### [address] [address] Potassium [Moles/Vol] 19.1 mmol/L Normal [facility] Comment on above: Performed By: #### E GFR #### [address] [address] Sodium [Moles/Vol] 65 mmol/L Normal [facility] Comment on above: Performed By: #### E GFR #### [address] [address] U Na Randomon 07-23-2024 Sodium [Moles/Vol] 65 mmol/L Normal [facility] Comment on above: Performed By: #### C [id number] #### [address] [address] UA w Culture if Indon 2024 Color (U) Colorless Normal Yellow [facility] Comment on above: Order Comment: If pa tient catheterized >2 days, discontinue current catheter, and insert new catheter prior to collection Performed By: #### R ENAL #### [address] [address] Glucose (U) [Mass/Vol] 300 mg/dL Abnormal Negative [facility] Comment on above: Order Comment: If pa tient catheterized >2 days, discontinue current catheter, and insert new catheter prior to collection Performed By: #### R ENAL #### [address] [address] Ketones Ql (U) Negative Normal Negative [facility] Comment on above: Order Comment: If pa tient catheterized >2 days, discontinue current catheter, and insert new catheter prior to collection Performed By: #### R ENAL #### [address] [address] UA Blood Negative Normal Negative [facility] Comment on above: Order Comment: If pa tient catheterized >2 days, discontinue current catheter, and insert new catheter prior to collection Performed By: #### R ENAL #### [address] [address] UA Clarity Clear Normal Clear [facility] Comment on above: Order Comment: If pa tient catheterized >2 days, discontinue current catheter, and insert new catheter prior to collection Performed By: #### R ENAL #### [address] [address] UA Leukocyte Esterase Negative Normal Negative [facility] Comment on above: Order Comment: If pa tient catheterized >2 days, discontinue current catheter, and insert new catheter prior to collection Performed By: #### R ENAL #### [address] [address] UA Nitrite Negative Normal Negative [facility] Comment on above: Order Comment: If pa tient catheterized >2 days, discontinue current catheter, and insert new catheter prior to collection Performed By: #### R ENAL #### [address] [address] UA pH 5.0 Normal 4.5 - 7.8 [facility] Comment on above: Order Comment: If pa tient catheterized >2 days, discontinue current catheter, and insert new catheter prior to collection Performed By: #### R ENAL #### [address] [address] UA Protein Negative Normal Negative [facility] Comment on above: Order Comment: If pa tient catheterized >2 days, discontinue current catheter, and insert new catheter prior to collection Performed By: #### R ENAL #### [address] [address] UA Source Catheter Normal [facility] Comment on above: Order Comment: If pa tient catheterized >2 days, discontinue current catheter, and insert new catheter prior to collection Performed By: #### R ENAL #### [address] [address] UA Spec Grav 1.011 Normal 1.003-1.035 [facility] Comment on above: Order Comment: If pa tient catheterized >2 days, discontinue current catheter, and insert new catheter prior to collection Performed By: #### R ENAL #### [address] [place] [address] UA Urobilinogen Normal Normal 0.2 - 1.0 [facility] Comment on above: Order Comment: If pa tient catheterized >2 days, discontinue current catheter, and insert new catheter prior to collection Performed By: #### R ENAL #### [address] [address] Urobilinogen (U) [Mass/Vol] Negative Normal Negative [facility] Comment on above: Order Comment: If pa tient catheterized >2 days, discontinue current catheter, and insert new catheter prior to collection Performed By: #### R ENAL #### [address] [address] US Renal and Bladderon 07-23 US Renal [...] Electronically Signed in Other Vendor System) Normal [facility] VL Extremity Venous Duplex [place] 07-23-2024 VL Extremity Venous Duplex [place] Preliminary Technologist Report A bilateral lower extremity venous exam was performed. Appeared to be a normal venous exam, all visualized vessels bilaterally were compressible and patent with no evidence of acute or chronic DVT. Preliminary results called to Rani in CCU at 2:25 pm. Hospital Mortician: Christiano Phillips RVElizabeth _ Radiologist Report CLINICAL [...] Electronically Signed in Other Vendor System) Normal [facility] XR Chest 1 Viewon 07-23-2024 XR Chest [...] Electronically Signed in Other Vendor System) Normal [facility] CBC with Auto Differentialon 07-22-2024 Basophils (Bld) [#/Vol] 0.03 10*3/uL [facility] Basophils/100 WBC (Bld) 0 % 0 - 2 % B on [facility] Eosinophils (Bld) [#/Vol] [facility] Eosinophils/100 WBC (Bld) 0 % Low 1 - 4 % [facility] Erythrocyte distribution width (RBC) [Ratio] 12.6 % 11.8 - 14.4 % [facility] Hematocrit (Bld) [Volume fraction] 32.3 % Low 40.7 - 50.3 % [facility] Hemoglobin (Bld) [Mass/Vol] 11.3 g/dL Low 13.0 - 17.0 g/dL [facility] Immature granulocytes (Bld) [#/Vol] 0.03 10*3/uL [facility] Immature granulocytes/100 WBC (Bld) 0 % 0 [facility] Interpretation and review of laboratory results Abnormal Bon [facility] Lymphocytes/100 WBC (Bld) 21 % Low 24 - 43 % [facility] Lymphocytes/100 WBC (Bld) 1.62 % [facility] MCH (RBC) [Entitic mass] 30.8 pg 25.2 - 33.5 pg [facility] MCHC (RBC) [Mass/Vol] 35.0 g/dL High 28.4 - 34.8 g/dL [facility] MCV (RBC) [Entitic vol] 88.0 fL 82.6 - 102.9 fL [facility] Monocytes/100 WBC (Bld) 10 % 3 - 12 % B on [facility] Monocytes/100 WBC (Bld) 0.79 % B on [facility] Neutrophils/100 WBC (Bld) 69 % High 36 - 65 % [facility] Nucleated RBC/100 WBC (Bld) [Ratio] 0.0 % 0.0 per 100 WBC [facility] Platelet mean volume (Bld) [Entitic vol] 11.4 fL 8.1 - 13.5 fL [facility] Platelets (Bld) [#/Vol] 309 10*3/uL [facility] RBC (Bld) [#/Vol] 3.67 10*6/uL Low 4.21 - 5.7 7 m/uL [facility] Segmented neutrophils/100 WBC (Bld) 5.40 % [facility] WBC other (Bld) [#/Vol] 7.9 B on [facility] CBC with Diffon 07-22-2024 Abs. Basophil 0.03 k/uL Normal 0.00-0.20 [facility] Comment on above: Performed By: #### M G, CDP, CP, URI, LIP ####[address] [place], [place] [id number] Lab Director: Eder Herrera MD#### PTHNCA ####[address] [id number] lab Director: Jimenez Pruett MD Abs. Eosinophil <0.03 Normal 0.00-0.44 [facility] Comment on above: Performed By: #### M G, CDP, CP, URI, LIP ####[address] [place], [place] [phone] Lab Director: Eder Herrera MD#### PTHNCA ####[address] [place] [address] Lab Director: Jimenez Pruett MD Abs.Imm.Granulocyte 0.03 k/uL Normal 0.00-0.30 [facility] Comment on above: Performed By: #### M G, CDP, CP, URI, LIP ####[address] [place], [place] [address])[phone] Director: Eder Herrera MD#### PTHNCA ####[address] [address] Lab Director: Jimenez Pruett MD Abs.Neutrophil (Seg) 5.40 k/uL Normal 1.50-8.10 [facility] Comment on above: Performed By: #### M G, CDP, CP, URI, LIP ####[address] [place], [place] [address])[phone] Director: Eder Herrera MD#### PTHNCA ####[address] [address] Lab Director: Jimenez Pruett MD Basophils/100 WBC (Bld) 0 % Normal 0-2 M [facility] Comment on above: Performed By: #### M G, CDP, CP, URI, LIP ####[address] [place] [address])[phone] Director: Eder Herrera MD#### PTHNCA ####[address] [address] Lab Director: Jimenez Pruett MD Eosinophils/100 WBC (Bld) 0 % Low 1-4 [facility] Comment on above: Performed By: #### M G, CDP, CP, URI, LIP ####[address] [place] [id number]([facility])[phone] Director: Eder Herrera MD#### PTHNCA ####[address] [place] [address] Lab Director: Jimenez Pruett MD Erythrocyte distribution width (RBC) [Ratio] 12.6 % Normal 11.8-14.4 [facility] Comment on above: Performed By: #### M G, CDP, CP, URI, LIP ####[address] [place], [place] [address])[phone] Director: Eder Herrera MD#### PTHNCA ####[address] [place] [address] Lab Director: Jimenez Pruett MD Hematocrit (Bld) [Volume fraction] 32.3 % Low 40.7-50.3 [facility] Comment on above: Performed By: #### M G, CDP, CP, URI, LIP ####[address] [place] [address])[phone] Director: Eder Herrera MD#### PTHNCA ####[place] [address] Lab Director: Jimenez Pruett MD Hemoglobin (Bld) [Mass/Vol] 11.3 g/dL Low 13.0-17.0 [facility] Comment on above: Performed By: #### M G, CDP, CP, URI, LIP ####[address] [place] [id number]([facility])[phone] Director: Eder Herrera MD#### PTHNCA ####[address] [address] Lab Director: Jimenez Pruett MD Immature granulocytes/100 WBC (Bld) 0 % Normal 0 [facility] Comment on above: Performed By: #### M G, CDP, CP, URI, LIP ####[address] 8[address]83 Lab Director: Eder Herrera MD#### PTHNCA ####[address] [place] [address] Lab Director: Jimenez Pruett MD Lymphocytes (Bld) [#/Vol] 1.62 10*3/uL Normal 1.10-3.70 [facility] Comment on above: Performed By: #### M G, CDP, CP, URI, LIP ####[address] [place] [phone] Lab Director: Eder Herrera MD#### PTHNCA ####[place] [address] Lab Director: Jimenez Pruett MD Lymphocytes/100 WBC (Bld) 21 % Low 24-43 [facility] Comment on above: Performed By: #### Bettina Saha, CDP, CP, URI, LIP ####[address] [place] [phone] Lab Director: Eder Herrera MD#### PTHNCA ####[place] [address] Lab Director: Jimenez Pruett MD MCH (RBC) [Entitic mass] 30.8 pg Normal 25.2-33.5 [facility] Comment on above: Performed By: #### Bettina G, CDP, CP, URI, LIP ####[address] [place], [place] [address] Lab Director: Eder Herrera MD#### PTHNCA ####[address] [place] [address] Lab Director: Jimenez Pruett MD MCHC (RBC) [Mass/Vol] 35.0 g/dL High 28.4-34.[address] [facility] Comment on above: Performed By: #### M G, CDP, CP, URI, LIP ####[address] [place] [phone])[phone] Director: Eder Herrera MD#### PTHNCA ####[address] [phone] Director: Jimenez Pruett MD MCV (RBC) [Entitic vol] 88.0 fL Normal 82.6-102.9 M [facility] Comment on above: Performed By: #### M G, CDP, CP, URI, LIP ####[address] [place] [phone])[phone] Director: Eder Herrera MD#### PTHNCA ####[place], [place] [address])[phone] Director: Jimenez Pruett MD Monocytes (Bld) [#/Vol] 0.79 10*3/uL Normal 0.10-1.20 [facility] Comment on above: Performed By: #### M G, CDP, CP, URI, LIP ####[address] [place], [place] [address])[phone] Director: Eder Herrera MD#### PTHNCA ####[place], [place] [phone] Director: Jimenez Pruett MD Monocytes/100 WBC (Bld) 10 % Normal 3-12 M [facility] Comment on above: Performed By: #### M G, CDP, CP, URI, LIP ####[address] [place] [phone] Lab Director: Eder Herrera MD#### PTHNCA ####[address] [phone] Director: Jimenez Pruett MD Neutrophil (Seg) 69 % High 36-65 [facility] Comment on above: Performed By: #### M G, CDP, CP, URI, LIP ####[address] , [place] [phone] Director: Eder Herrera MD#### PTHNCA ####[address] [place], [place] [phone])[phone] Director: Jimenez Pruett MD NRBC Automated 0.0 per 100 WBC Normal 0.0 [facility] Comment on above: Performed By: #### M G, CDP, CP, URI, LIP ####[address] [place], [place] [phone])[phone] Director: Eder Herrera MD#### PTHNCA ####[address] [place], [place] [phone] Director: Jimenez Pruett MD Platelet mean volume (Bld) [Entitic vol] 11.4 fL Normal 8.1-13.5 [facility] Comment on above: Performed By: #### M G, CDP, CP, URI, LIP ####[address] , [place] [phone] Director: Eder Herrera MD#### PTHNCA ####[address] [address] Lab Director: Jimenez Pruett MD Platelets (Bld) [#/Vol] 309 10*3/uL Normal 138-453 [facility] Comment on above: Performed By: #### M G, CDP, CP, URI, LIP ####[address] [place] [address] Lab Director: Eder Herrera MD#### PTHNCA ####[address] [place], [place] [phone] Director: Jimenez Pruett MD RBC (Bld) [#/Vol] 3.67 10*6/uL Low 4.21-5.77 [facility] Comment on above: Performed By: #### M G, CDP, CP, URI, LIP ####[facility] [place], [place] [phone] Lab Director: Eder Herrera MD#### PTHNCA ####[facility] [id number] [place], [place] 7455[address] Lab Director: Jimenez Pruett MD WBC (Bld) [#/Vol] 7.9 10*3/uL Normal 3.5-11.3 [facility] Comment on above: Performed By: #### M G, CDP, CP, URI, LIP ####[facility] , [place] 2240[address] lab Director: Eder Herrera MD#### PTHNCA ####[facility] [id number] [place], [place] [phone] lab Director: Jimenez Pruett MD [facility] 07-22-2024 Albumin [Mass/Vol] 4.3 g/dL 3.5 - 5.2 g/dL [facility] Albumin/Globulin [Mass ratio] 1.3 {ratio} 1.0 - 2.5 [facility] ALP [Catalytic activity/Vol] 83 U/L 40 - 129 U/L [facility] ALT [Catalytic activity/Vol] 10 U/L 10 - 50 U/L [facility] Anion gap [Moles/Vol] 20 mmol/L High 9 - 16 mmol/L [facility] AST [Catalytic activity/Vol] 13 U/L 10 - 50 U/L [facility] Bilirubin [Mass/Vol] 0.3 mg/dL 0.00 - 1.20 mg/dL [facility] Calcium [Mass/Vol] 7.7 mg/dL Low 8.6 - 10. 4 mg/dL [facility] Chloride [Moles/Vol] 86 mmol/L Low 98 - 10 7 mmol/L [facility] CO2 [Moles/Vol] 24 mmol/L 20 - 31 mmol/L [facility] Creatinine [Mass/Vol] 4.5 mg/dL High 0.70 - 1.20 mg/dL [facility] Yuliet Lancastert Rate 14 Low - PINF [facility] Comment on above: These results are [...] 273 mg/dL High 74 - 99 mg/dL [facility] Potassium [Moles/Vol] 4.6 mmol/L 3.7 - 5.3 mmol/L [facility] Protein [Mass/Vol] 7.5 g/dL 6.6 - 8.7 g/dL [facility] Sodium [Moles/Vol] 130 mmol/L Low 136 - 145 mmol/L [facility] Urea nitrogen [Mass/Vol] 127 mg/dL Critically high 8 - 23 mg/dL [facility] Urea nitrogen/Creatinine [Mass ratio] 28 mg/mg High 9 - 20 [facility] COVID-19, Rapidon 07-22-2024 SARS-CoV-2 (COVID-19) RdRp gene ARIEL+probe Ql (Resp) Not detected Not Detected [facility] Comment on above: Rapid NAAT: The specimen [...] Nucleic Acid Amplification Specimen Description .NASOPHARYNGEAL SWAB [facility] Bon [facility] CT ABDOMEN PELVIS WO CONTRAS Ton 07-22-2024 CT ABDOMEN PELVIS WO CONTRAST Normal [facility] CT Abdomen and Pelvis WO con traston 07-22-2024 1. No acute intra-abdominal or intrapelvic process. No findings to explain the patient's symptoms. 2. Additional incidental findings as above. [facility] EXAMINATION: CT OF THE ABDOMEN AND [...] redemonstrated. Multilevel degenerative changes to the spine. [facility] Cleve Shi M D - 07/22/2024 [...] symptoms. 2. Additional incidental findings as above. [facility] Radiology Study observation (narrative) [facility] CT Abdomen and Pelvis WO con trastOrdered By: Cleve Shi on 07-22-2024 [facility] Work Phone: Comp Metabolic Profon 2024 Albumin [Mass/Vol] 4.3 g/dL Normal 3.5-5.2 [facility] Comment on above: Performed By: #### M G, CDP, CP, URI, LIP ####[address] [place], [place] [id number] Lab Director: Eder Herrera MD#### PTHNCA ####[address] [place] [address] Lab Director: Jimenez Pruett MD Albumin/Glob Ratio 1.3 Normal 1.0-2.5 [facility] Comment on above: Performed By: #### M G, CDP, CP, URI, LIP ####[address] [place], [place] 1029883 Lab Director: Eder Herrera MD#### PTHNCA ####[address] [address] Lab Director: Jimenez Pruett MD Alkaline Phos 83 U/L Normal 40-129 [facility] Comment on above: Performed By: #### M G, CDP, CP, URI, LIP ####[address] [place] [address] Lab Director: Eder Herrera MD#### PTHNCA ####[address] [place], [place] [phone] Director: Jmienez Pruett MD ALT [Catalytic activity/Vol] 10 U/L Normal 10-50 [facility] Comment on above: Performed By: #### M G, CDP, CP, URI, LIP ####[address] [place] [address] Lab Director: Eder Herrera MD#### PTHNCA ####[address] [place] [address] Lab Director: Jimenez Pruett MD Anion gap [Moles/Vol] 20 mmol/L High 9-[address] [facility] Comment on above: Performed By: #### M G, CDP, CP, URI, LIP ####[address] [place], [place] 3827383 Lab Director: Eder Herrera MD#### PTHNCA ####[address] [phone] Director: Jimenez Pruett MD AST [Catalytic activity/Vol] 13 U/L Normal 10-50 [facility] Comment on above: Performed By: #### M G, CDP, CP, URI, LIP ####[address] [place] [address] Lab Director: Eder Herrera MD#### PTHNCA ####[address] [phone] Director: Jimenez Pruett MD Bilirubin [Mass/Vol] 0.3 mg/dL Normal 0.00-1.20 [facility] Comment on above: Performed By: #### M G, CDP, CP, URI, LIP ####[address] [place] [address] Lab Director: Eder Herrera MD#### PTHNCA ####[address] [phone] Director: Jimenez Pruett MD BUN/CRE Ratio 28 High 9-20 [facility] Comment on above: Performed By: #### M G, CDP, CP, URI, LIP ####[address] [place] [address] Lab Director: Eder Herrera MD#### PTHNCA ####[address] [place], [place] 9411208 Lab Director: Jimenez Pruett MD Calcium [Mass/Vol] 7.7 mg/dL Low 8.6-10.4 [facility] Comment on above: Performed By: #### M G, CDP, CP, URI, LIP ####[address] [place], [place] 2605783 Lab Director: Eder Herrera MD#### PTHNCA ####[address] [address] Lab Director: Jimenez Pruett MD Chloride [Moles/Vol] 86 mmol/L Low 98-107 [facility] Comment on above: Performed By: #### M G, CDP, CP, URI, LIP ####[address] [place], [place] 5478483 Lab Director: Eder Herrera MD#### PTHNCA ####[address] [address] Lab Director: Jimenez Pruett MD CO2 [Moles/Vol] 24 mmol/L Normal 20-31 [facility] Comment on above: Performed By: #### M G, CDP, CP, URI, LIP ####[address] [place], [place] 4193383 Lab Director: Eder Herrera MD#### PTHNCA ####[address] [address] Lab Director: Jimenez Pruett MD Creatinine [Mass/Vol] 4.5 mg/dL High 0.70-1.[address] [facility] Comment on above: Performed By: #### M G, CDP, CP, URI, LIP ####[address] [place], [place] 1018983 Lab Director: Eder Herrera MD#### PTHNCA ####[address] [phone] Lab Director: Jimenez Pruett MD GFR/1.73 sq M.predicted among non-blacks MDRD (S/P/Bld) [Vol rate/Area] 14 mL/min/{1.73_m2} Low >60 [facility] Comment on above: Result Comment: Thes [...] #### M G, CDP, CP, URI, LIP ####[address] [place] [phone] Lab Director: Eder Herrera MD#### PTHNCA ####[address] [address] Lab Director: Jimenez Pruett MD Glucose [Mass/Vol] 273 mg/dL High 74-99 [facility] Comment on above: Performed By: #### M G, CDP, CP, URI, LIP ####[address] [place] [address] Lab Director: Eder Herrera MD#### PTHNCA ####[address] [place] [address] Lab Director: Jimenez Pruett MD Potassium [Moles/Vol] 4.6 mmol/L Normal 3.7-5.[address] [facility] Comment on above: Performed By: #### M G, CDP, CP, URI, LIP ####[address] [place], [place] 4257483 Lab Director: Eder Herrera MD#### PTHNCA ####[address] [place] [address] Lab Director: Jimenez Pruett MD Protein [Mass/Vol] 7.5 g/dL Normal 6.6-8.7 [facility] Comment on above: Performed By: #### M G, CDP, CP, URI, LIP ####[address] [place] [address] Lab Director: Eder Herrera MD#### PTHNCA ####[address] [address] Lab Director: Jimenez Pruett MD Sodium [Moles/Vol] 130 mmol/L Low 136-145 [facility] Comment on above: Performed By: #### M G, CDP, CP, URI, LIP ####[address] [place], [place] 7841183 Lab Director: Eder Herrera MD#### PTHNCA ####[address] [address] Lab Director: Jimenez Pruett MD Urea nitrogen [Mass/Vol] 127 mg/dL Critically high 8-23 [facility] Comment on above: Performed By: #### M G, CDP, CP, URI, LIP ####[address] , [place] 6851483 Lab Director: Eder Herrera MD#### PTHNCA ####[address] [address] Lab Director: Jimenez Pruett MD Flu A/B Ag Detectionon 07-22 Flu A Ag Detection Negative Normal NEG [facility] Comment on above: Result Comment: for Influenza A Antigen Performed By: #### F LUABA ####[address] [place] [address] Lab Director: Eder Herrera MD Flu B Ag Detection Negative Normal NEG [facility] Comment on above: Result Comment: for Influenza B Antigen. Performed By: #### F LUABA ####[address] [place], [place] 5159583 Lab Director: Eder Herrera MD Lactic Acidon 07-22-2024 Lactate (BldV) [Moles/Vol] 2.2 mmol/L 0.5 - 2.2 mmol/L [facility] Lactate [Moles/Vol] 2.2 mmol/L Normal 0.5-2.2 [facility] Comment on above: Performed By: #### L ACTIC ####[address] [place] [address] Lab Director: Eder Herrera MD Lipaseon 07-22-2024 Lipase [Catalytic activity/Vol] 138 U/L High 13 - 60 U/L [facility] Lipase [Catalytic activity/Vol] 138 U/L High 13-60 [facility] Comment on above: Performed By: #### Bettina Saha, BRADY, CP, URI, LIP ####[address] [place], [place] 1625983 Lab Director: Eder Herrera MD#### PTHNCA ####[address] [place], [place] 0134208 Lab Director: Jimenez Pruett MD Magnesiumon Magnesium [Mass/Vol] 1.9 mg/dL 1.6 - 2 .4 mg/dL [facility] Magnesium [Mass/Vol] 1.9 mg/dL Normal 1.6-2.4 [facility] Comment on above: Performed By: #### M Yifan, BRADY, CP, URI, LIP ####[address] [place] [address] Lab Director: Eder Herrera MD#### PTHNCA ####[facility] [place], [place] 3608608 Lab Director: Jimenez Pruett MD Microscopic Urinalysison Bacteria LM Ql (Urine sed) 2+ Abnormal None [facility] Casts LM.LPF (Urine sed) [#/Area] 20 TO 50 HYALINE /LPF [facility] Epithelial cells LM.HPF (Urine sed) [#/Area] 0 TO 2 [facility] Interpretation and review of laboratory results Abnormal [facility] RBC LM.HPF (Urine sed) [#/Area] 0 TO 2 [facility] WBC LM.HPF (Urine sed) [#/Area] 0 TO 2 [facility] No Panel Informationon 07-22 Interpretation and review of laboratory results Abnormal [facility] PTH, Intacton 07-22-2024 Interpretation and review of laboratory results Abnormal [facility] Parathyrin.intact [Mass/Vol] 137.0 pg/mL High 15 - 65 pg/mL [facility] PTH, Intact 137.0 pg/mL High 15-65 [facility] Comment on above: Performed By: #### M G, CDP, CP, URI, LIP ####[facility] [place] [address] Lab Director: Eder Herrera MD#### PTHNCA ####[address] [place], [place] [phone] Lab Director: Jimenez Pruett MD Rapid influenza A/B antigens on 07-22-2024 FLUAV Ag Ql (Unsp spec) Negative NEGATIVE B on [facility] Comment on above: for Influenza A Anti gen FLUBV Ag Ql (Unsp spec) Negative NEGATIVE B on [facility] Comment on above: for Influenza B Anti gen. [facility] [id number] 07-22-2024 SARS-CoV-2 (COVID-19) RNA ARIEL+probe Ql (Unsp spec) Not detected Normal [facility] Comment on above: Result Comment: Rapi [...] Acid Amplification Performed By: #### C OVRB ####[address] , [place] [phone] Lab Director: Eder Herrera MD UA w/Reflex Cultureon 2024 Bilirubin, SemiQt,Ur Negative Normal NEG [facility] Comment on above: Performed By: #### U SHAWN UAX ####[address] [place] [address] Lab Director: Eder Herrera MD Blood, Urine Negative Normal NEG [facility] Comment on above: Performed By: #### U SHAWN, UAX ####[address] , [place] 3256683 Lab Director: Eder Herrera MD Clarity (U) Clear Normal CLEAR [facility] Comment on above: Performed By: #### U SHAWN, UAX ####[address] , [place] 2483983 Lab Director: Eder Herrera MD Color (U) Yellow Normal YEL [facility] Comment on above: Performed By: #### U SHAWN, UAX ####[address] , [place] 5010483 Lab Director: Eder Herrera MD Glucose Ql (U) 2+ mg/dL Abnormal NEG [facility] Comment on above: Performed By: #### U SHAWN, UAX ####[address] , [place] 4270783 Lab Director: Eder Herrera MD Ketones Ql (U) Negative Normal NEG [facility] Comment on above: Performed By: #### U MICAO, UAX ####[address] , [place] 1383683 Lab Director: Eder Herrera MD Leukocyte esterase Test strip Ql (U) Negative Normal NEG [facility] Comment on above: Performed By: #### U MICAO, UAX ####[address] , [place] 758[address]83 Lab Director: Eder Herrera MD Nitrite,Ur Negative Normal NEG [facility] Comment on above: Performed By: #### U MICAO, UAX ####[address] , [place] 1741683 Lab Director: Eder Herrera MD PH,Ur 5.5 Normal 5.0-9.0 [facility] Comment on above: Performed By: #### U MICAO, UAX ####[address] [place] [address] Lab Director: Eder Herrera MD Protein Ql (U) Negative Normal NEG [facility] Comment on above: Performed By: #### U MICAO, UAX ####[address] , [place] 5941283 Lab Director: Eder Herrera MD Spec. Enochs,Ur 1.010 Normal 1.010-1.020 [facility] Comment on above: Performed By: #### U MICAO, UAX ####[address] , [place] [phone] lab Director: Eder Herrera MD Urobilinogen,Ur Normal Normal 0.0-1.0 [facility] Comment on above: Performed By: #### U MICAO, UAX ####[facility] [place] [address] [facility] Director: Eder Herrera MD Uric Acidon 07-22-2024 Urate [Mass/Vol] 7.6 mg/dL High 3.4 - 7.0 mg/dL [facility] Urate [Mass/Vol] 7.6 mg/dL High 3.4-7.0 [facility] Comment on above: Performed By: #### M G, CDP, CP, URI, LIP ####[facility] [place] [address] lab Director: Eder Herrera MD#### PTHNCA ####[address] [place], [place] 0382808 lab Director: Jimenez Pruett MD Urinalysis with Reflex to Cu ltureon 07-22-2024 Bilirubin Ql (U) Negative NEGATIVE [facility] Clarity (U) Clear Clear [facility] Color (U) Yellow Yellow [facility] Glucose Test strip (U) [Mass/Vol] 2+ Abnormal NEGATIVE mg/dL [facility] Hemoglobin Auto test strip Ql (U) Negative NEGATIVE [facility] Interpretation and review of laboratory results Abnormal [facility] Ketones (U) [Mass/Vol] Negative NEGAT PAO mg/dL [facility] Leukocyte esterase Test strip Ql (U) Negative NEGATIVE [facility] Nitrite Ql (U) Negative NEGATIVE [facility] pH (U) 5.5 [pH] 5.0 - 9.0 [facility] Protein (U) [Mass/Vol] Negative NEGAT PAO mg/dL [facility] Specific gravity (U) [Rel density] 1.010 1.010 - 1.020 [facility] Urobilinogen Qn (U) Normal 0.0 - 1. 0 EU/dL [facility] Urinalysis,Microon 5 Bacteria 2+ Abnormal NONE [facility] Comment on above: Performed By: #### U MICAO, UAX ####[address] , [place] 908[address]83 lab Director: Eder Herrera MD Casts 20 TO 50 Normal [facility] Comment on above: Result Comment: HYAL INE Performed By: #### U MICAO, UAX ####[address] , [place] 834[address]83 lab Director: Eder Herrera MD Epithelial cells LM Ql (Urine sed) 0 TO 2 Normal 0-5 [facility] Comment on above: Performed By: #### U MICAO, UAX ####[address] , [place] 3423983 lab Director: Eder Herrera MD Urine RBC's 0 TO 2 Normal 0-2 [facility] Comment on above: Performed By: #### U MICAO, UAX ####[address] , [place] [phone] lab Director: Eder Herrera MD Urine WBC's 0 TO 2 Normal 0-5 [facility] Comment on above: Performed By: #### U MICAO, UAX ####[address] , [place] 9352283 lab Director: Eder Herrera MD Magnesiumon 07-13-2024 Magnesium [Mass/Vol] 1.8 mg/dL 1.6 - 2 .4 mg/dL [facility] Magnesium [Mass/Vol] 1.8 mg/dL Normal 1.6-2.4 [facility] Comment on above: Performed By: #### M G, RENP ####[address] , [place] 6949783 lab Director: Eder Herrera MD No Panel Informationon 07-13 [facility] Renal Function Panelon 07-13 Albumin [Mass/Vol] 4.2 g/dL 3.5 - 5.2 g/dL [facility] Anion gap [Moles/Vol] 13 mmol/L 9 - 16 mmol/L [facility] Calcium [Mass/Vol] 8.9 mg/dL 8.6 - 10. 4 mg/dL [facility] Chloride [Moles/Vol] 96 mmol/L Low 98 - 10 7 mmol/L [facility] CO2 [Moles/Vol] 27 mmol/L 20 - 31 mmol/L [facility] Creatinine [Mass/Vol] 2.3 mg/dL High 0.70 - 1.20 mg/dL [facility] Est, Glom Filt Rate 31 Low - PINF [facility] Comment on above: These results are [...] 137 mg/dL High 74 - 99 mg/dL [facility] Interpretation and review of laboratory results Abnormal [facility] Phosphate [Mass/Vol] 3.7 mg/dL 2.5 - 4 .5 mg/dL [facility] Potassium [Moles/Vol] 4.1 mmol/L 3.7 - 5.3 mmol/L [facility] Sodium [Moles/Vol] 136 mmol/L 136 - 145 mmol/L [facility] Urea nitrogen [Mass/Vol] 82 mg/dL High 8 - 23 mg/dL [facility] Urea nitrogen/Creatinine [Mass ratio] 36 mg/mg High 9 - 20 [facility] Albumin [Mass/Vol] 4.2 g/dL Normal 3.5-5.2 [facility] Comment on above: Performed By: #### VALARIE Foster ####[facility] [place] [address] Lab Director: Eder Herrera MD Anion gap [Moles/Vol] 13 mmol/L Normal 9-[address] [facility] Comment on above: Performed By: #### Bettina Saha, RENP ####[address] , [place] [phone] lab Director: Eder Herrera MD BUN/CRE Ratio 36 High 9-20 [facility] Comment on above: Performed By: #### Bettina Saha, RENP ####[address] , [place] 3945283 lab Director: Eder Herrera MD Calcium [Mass/Vol] 8.9 mg/dL Normal 8.6-10.4 [facility] Comment on above: Performed By: #### Bettina Saha, RENP ####[address] , [place] 3622583 Lab Director: Eder Herrera MD Chloride [Moles/Vol] 96 mmol/L Low 98-107 [facility] Comment on above: Performed By: #### Bettina Saha, RENP ####[address] [place] [address] Lab Director: Eder Herrera MD CO2 [Moles/Vol] 27 mmol/L Normal 20-31 [facility] Comment on above: Performed By: #### Bettina Saha, RENP ####[address] , [place] 9369683 Lab Director: Eder Herrera MD Creatinine [Mass/Vol] 2.3 mg/dL High 0.70-1.[address] [facility] Comment on above: Performed By: #### Bettina Saha, RENP ####[address] , [place] 67[address]83 lab Director: Eder Herrera MD GFR/1.73 sq M.predicted among non-blacks MDRD (S/P/Bld) [Vol rate/Area] 31 mL/min/{1.73_m2} Low >60 [facility] Comment on above: Result Comment: Thes [...] secretion. Performed By: #### Bettina Saha, RENP ####[address] [place] [address] Lab Director: Eder Herrera MD Glucose [Mass/Vol] 137 mg/dL High 74-99 [facility] Comment on above: Performed By: #### Bettina Saha, RENP ####[address] [place] [address] Lab Director: Eder Herrera MD Phosphorus, Inorg. 3.7 mg/dL Normal 2.5-4.5 [facility] Comment on above: Performed By: #### Bettina Saha, RENP ####[address] [place] [address] Lab Director: Eder Herrera MD Potassium [Moles/Vol] 4.1 mmol/L Normal 3.7-5.[address] [facility] Comment on above: Performed By: #### Bettina Saha, RENP ####[address] [place] [address] Lab Director: Eder Herrera MD Sodium [Moles/Vol] 136 mmol/L Normal 136-145 [facility] Comment on above: Performed By: #### Bettina Saha, RENP ####[address] [place] [address] Lab Director: Eder Herrera MD Urea nitrogen [Mass/Vol] 82 mg/dL High 8-23 [facility] Comment on above: Performed By: #### Bettina Saha, RENP ####[facility] [address] [place], [place] 3458483 Lab Director: Eder Herrera MD PTH, Intacton 06-28-2024 Interpretation and review of laboratory results Abnormal [facility] Parathyrin.intact [Mass/Vol] 182.0 pg/mL High 15 - 65 pg/mL [facility] PTH, Intact 182.0 pg/mL High 15-65 [facility] Comment on above: Performed By: #### U AX, MG, RENP, URI, URTPRT, UMICAO, CBC ####[facility] [place] [address] lab Director: Eder Herrera MD#### PTHNCA ####[facility] [id number] [place], [place] 3408208 lab Director: Jimenez Pruett MD CBCon 06-27-2024 Erythrocyte distribution width (RBC) [Ratio] 12.6 % 11.8 - 14.4 % [facility] Hematocrit (Bld) [Volume fraction] 36.8 % Low 40.7 - 50.3 % [facility] Hemoglobin (Bld) [Mass/Vol] 11.9 g/dL Low 13.0 - 17.0 g/dL [facility] Interpretation and review of laboratory results Abnormal [facility] MCH (RBC) [Entitic mass] 29.8 pg 25.2 - 33.5 pg [facility] MCHC (RBC) [Mass/Vol] 32.3 g/dL 28.4 - 34.8 g/dL [facility] MCV (RBC) [Entitic vol] 92.2 fL 82.6 - 102.9 fL [facility] Nucleated RBC/100 WBC (Bld) [Ratio] 0.0 % 0.0 per 100 WBC [facility] Platelet mean volume (Bld) [Entitic vol] 10.4 fL 8.1 - 13.5 fL [facility] Platelets (Bld) [#/Vol] 320 10*3/uL [facility] RBC (Bld) [#/Vol] 3.99 10*6/uL Low 4.21 - 5.7 7 m/uL [facility] WBC other (Bld) [#/Vol] 6.9 [facility] Erythrocyte distribution width (RBC) [Ratio] 12.6 % Normal 11.8-14.4 [facility] Comment on above: Performed By: #### U AX, MG, RENP, URI, URTPRT, UMICAO, CBC ####[address] [place], [place] 8613683 Lab Director: Eder Herrera MD#### PTHNCA ####[address] [address] Lab Director: Jimenez Pruett MD Hematocrit (Bld) [Volume fraction] 36.8 % Low 40.7-50.3 [facility] Comment on above: Performed By: #### U AX, MG, RENP, URI, URTPRT, UMICAO, CBC ####[address] [place] 29[address] Lab Director: Eder Herrera MD#### PTHNCA ####[address] [address] Lab Director: Jimenez Pruett MD Hemoglobin (Bld) [Mass/Vol] 11.9 g/dL Low 13.0-17.0 [facility] Comment on above: Performed By: #### U AX, MG, RENP, URI, URTPRT, UMICAO, CBC ####[address] [place] 29[address]83 Lab Director: Eder Herrera MD#### PTHNCA ####[address] [phone] Lab Director: Jimenez Pruett MD MCH (RBC) [Entitic mass] 29.8 pg Normal 25.2-33.5 [facility] Comment on above: Performed By: #### U AX, MG, RENP, URI, URTPRT, UMICAO, CBC ####[address] [place] [address] Lab Director: Eder Herrera MD#### PTHNCA ####[address] [phone] Lab Director: Jimenez Pruett MD MCHC (RBC) [Mass/Vol] 32.3 g/dL Normal 28.4-34.[address] [facility] Comment on above: Performed By: #### U AX, MG, RENP, URI, URTPRT, UMICAO, CBC ####[address] [place] [address] Lab Director: Eder Herrera MD#### PTHNCA ####[place] [address] Lab Director: Jimenez Pruett MD MCV (RBC) [Entitic vol] 92.2 fL Normal 82.6-102.9 M [facility] Comment on above: Performed By: #### U AX, MG, RENP, URI, URTPRT, UMICAO, CBC ####[address] [place] [address]83 Lab Director: Eder Herrera MD#### PTHNCA ####[address] [address] Lab Director: Jimenez Pruett MD NRBC Automated 0.0 per 100 WBC Normal 0.0 [facility] Comment on above: Performed By: #### U AX, MG, RENP, URI, URTPRT, UMICAO, CBC ####[address] [place] [address] Lab Director: Eder Herrera MD#### PTHNCA ####[facility] [id number] [place], [place] [phone] Director: Jimenez Pruett MD Platelet mean volume (Bld) [Entitic vol] 10.4 fL Normal 8.1-13.5 [facility] Comment on above: Performed By: #### U AX, MG, RENP, URI, URTPRT, UMICAO, CBC ####[address] [place] [address]([facility])[phone] Director: Eder Herrera MD#### PTHNCA ####[address] [place], [place] [address])[phone] Director: Jimenez Pruett MD Platelets (Bld) [#/Vol] 320 10*3/uL Normal 138-453 [facility] Comment on above: Performed By: #### U AX, MG, RENP, URI, URTPRT, UMICAO, CBC ####[address] [place] 29[address] Lab Director: Eder Herrera MD#### PTHNCA ####[address] [place], [place] [phone] Director: Jimenez Pruett MD RBC (Bld) [#/Vol] 3.99 10*6/uL Low 4.21-5.77 [facility] Comment on above: Performed By: #### U AX, MG, RENP, URI, URTPRT, UMICAO, CBC ####[address] [place], [place] 8903483 Lab Director: Eder Herrera MD#### PTHNCA ####[address] [phone] Director: Jimenez Pruett MD WBC (Bld) [#/Vol] 6.9 10*3/uL Normal 3.5-11.3 [facility] Comment on above: Performed By: #### U AX, MG, RENP, URI, URTPRT, UMICAO, CBC ####[facility] [place] [address] [facility] Director: Eder Herrera MD#### PTHNCA ####[address] [place], [place] 4186508 Lab Director: Jimenez Pruett MD Magnesiumon 06-27-2024 Magnesium [Mass/Vol] 1.7 mg/dL 1.6 - 2 .4 mg/dL [facility] Magnesium [Mass/Vol] 1.7 mg/dL Normal 1.6-2.4 [facility] Comment on above: Performed By: #### U AX, MG, RENP, URI, URTPRT, UMICAO, CBC ####[address] [place] [address] [facility] Director: Edre Herrera MD#### PTHNCA ####[address] [place], [place] 1324608 Lab Director: Jimenez Pruett MD Microscopic Urinalysison Epithelial cells LM.HPF (Urine sed) [#/Area] 2 TO 5 [facility] RBC LM.HPF (Urine sed) [#/Area] None [facility] WBC LM.HPF (Urine sed) [#/Area] 0 TO 2 [facility] No Panel Informationon 06-27 [facility] Protein / creatinine ratio, urineon 06-27-2024 Creatinine (U) [Mass/Vol] 61.8 mg/dL 39.0 - 259.0 mg/dL [facility] Protein (U) [Mass/Vol] 7 mg/dL [facility] Comment on above: No normal range esta blished. Urine Total Protein Creatinine Ratio 0.11 0.00 - 0.20 [facility] Protein,Tot,[place] Uron 2024 Creatinine [Mass/Vol] 61.8 mg/dL Normal 39.0-259.[address] [facility] Comment on above: Performed By: #### U AX, MG, RENP, URI, URTPRT, UMICAO, CBC ####[address] [place], [place] 9035283 Lab Director: Eder Herrera MD#### PTHNCA ####[address] [place] [address] Lab Director: Jimenez Pruett MD Tot Prot. Conc. 7 mg/dL Normal [facility] Comment on above: Result Comment: No n ormal range established. Performed By: #### U AX, MG, RENP, URI, URTPRT, UMICAO, CBC ####[address] [place], [place] 4[address]383 Lab Director: Eder Herrera MD#### PTHNCA ####[address] [place] [address] Lab Director: Jimenez Pruett MD TP/Cre Ratio 0.11 Normal 0.00-0.20 [facility] Comment on above: Performed By: #### U AX, MG, RENP, URI, URTPRT, UMICAO, CBC ####[address] [place], [place] 5154483 Lab Director: Eder Herrera MD#### PTHNCA ####[address] [place] [address] Lab Director: Jimenez Pruett MD Renal Function Panelon 06-27 Albumin [Mass/Vol] 4.0 g/dL 3.5 - 5.2 g/dL [facility] Anion gap [Moles/Vol] 11 mmol/L 9 - 16 mmol/L [facility] Calcium [Mass/Vol] 8.4 mg/dL Low 8.6 - 10. 4 mg/dL [facility] Chloride [Moles/Vol] 99 mmol/L 98 - 10 7 mmol/L [facility] CO2 [Moles/Vol] 26 mmol/L 20 - 31 mmol/L [facility] Creatinine [Mass/Vol] 1.9 mg/dL High 0.70 - 1.20 mg/dL [facility] Yuliet [place] Rate 39 Low - PINF [facility] Comment on above: These results are [...] 108 mg/dL High 74 - 99 mg/dL [facility] Interpretation and review of laboratory results Abnormal [facility] Phosphate [Mass/Vol] 3.1 mg/dL 2.5 - 4 .5 mg/dL [facility] Potassium [Moles/Vol] 4.7 mmol/L 3.7 - 5.3 mmol/L [facility] Sodium [Moles/Vol] 136 mmol/L 136 - 145 mmol/L [facility] Urea nitrogen [Mass/Vol] 54 mg/dL High 8 - 23 mg/dL [facility] Urea nitrogen/Creatinine [Mass ratio] 28 mg/mg High 9 - 20 [facility] Albumin [Mass/Vol] 4.0 g/dL Normal 3.5-5.2 [facility] Comment on above: Performed By: #### U AX, MG, RENP, URI, URTPRT, UMICAO, CBC ####[facility] [place] [address] Lab Director: Eder Herrera MD#### PTHNCA ####[facility] [address] [place] [address] Lab Director: Jimenez Pruett MD Anion gap [Moles/Vol] 11 mmol/L Normal 9-[address] [facility] Comment on above: Performed By: #### U AX, MG, RENP, URI, URTPRT, UMICAO, CBC ####[address] [place], [place] 4197383 Lab Director: Eder Herrera MD#### PTHNCA ####[address] [address] Lab Director: Jimenez Pruett MD BUN/CRE Ratio 28 High 9-20 [facility] Comment on above: Performed By: #### U AX, MG, RENP, URI, URTPRT, UMICAO, CBC ####[address] [place], [place] 9694083 Lab Director: Eder Herrera MD#### PTHNCA ####[address] [address] Lab Director: Jimenez Pruett MD Calcium [Mass/Vol] 8.4 mg/dL Low 8.6-10.4 [facility] Comment on above: Performed By: #### U AX, MG, RENP, URI, URTPRT, UMICAO, CBC ####[address] , [place] 9507883 Lab Director: Eder Herrera MD#### PTHNCA ####[address] [address] Lab Director: Jimenez Pruett MD Chloride [Moles/Vol] 99 mmol/L Normal 98-107 [facility] Comment on above: Performed By: #### U AX, MG, RENP, URI, URTPRT, UMICAO, CBC ####[address] [place], [place] 0738483 Lab Director: Eder Herrera MD#### PTHNCA ####[address] [address] Lab Director: Jimenez Pruett MD CO2 [Moles/Vol] 26 mmol/L Normal 20-31 [facility] Comment on above: Performed By: #### U AX, MG, RENP, URI, URTPRT, UMICAO, CBC ####[facility] [place] [address] Lab Director: Eder Herrera MD#### PTHNCA ####[facility] [id number] [place], [place] 6768708 Lab Director: Jimenez Pruett MD Creatinine [Mass/Vol] 1.9 mg/dL High 0.70-1.[address] [facility] Comment on above: Performed By: #### U AX, MG, RENP, URI, URTPRT, UMICAO, CBC ####[address] [place], [place] 1260683 Lab Director: Eder Herrera MD#### PTHNCA ####[address] [place], [place] 1979608 Lab Director: Jimenez Pruett MD GFR/1.73 sq M.predicted among non-blacks MDRD (S/P/Bld) [Vol rate/Area] 39 mL/min/{1.73_m2} Low >60 [facility] Comment on above: Result Comment: Thes [...] AX, MG, RENP, URI, URTPRT, UMICAO, CBC ####[address] [place], [place] 6667883 Lab Director: Eder Herrera MD#### PTHNCA ####[address] [place] [address] Lab Director: Jimenez Pruett MD Glucose [Mass/Vol] 108 mg/dL High 74-99 [facility] Comment on above: Performed By: #### U AX, MG, RENP, URI, URTPRT, UMICAO, CBC ####[address] [place], [place] [address])[phone] Director: Eder Herrera MD#### PTHNCA ####[address] [address] Lab Director: Jimenez Pruett MD Phosphorus, Inorg. 3.1 mg/dL Normal 2.5-4.5 [facility] Comment on above: Performed By: #### U AX, MG, RENP, URI, URTPRT, UMICAO, CBC ####[address] [place] [address])[phone] Director: Eder Herrera MD#### PTHNCA ####[address] [address] Lab Director: Jimenez Pruett MD Potassium [Moles/Vol] 4.7 mmol/L Normal 3.7-5.[address] [facility] Comment on above: Performed By: #### U AX, MG, RENP, URI, URTPRT, UMICAO, CBC ####[address] [place], [place] 9278983 Lab Director: Eder Herrera MD#### PTHNCA ####[address] [address] Lab Director: Jimenez Pruett MD Sodium [Moles/Vol] 136 mmol/L Normal 136-145 [facility] Comment on above: Performed By: #### U AX, MG, RENP, URI, URTPRT, UMICAO, CBC ####[address] , [place] 4936383 Lab Director: Eder Herrera MD#### PTHNCA ####[address] [address] Lab Director: Jimenez Pruett MD Urea nitrogen [Mass/Vol] 54 mg/dL High 8-23 [facility] Comment on above: Performed By: #### U AX, MG, RENP, URI, URTPRT, UMICAO, CBC ####[address] [place], [place] 3043883 Lab Director: Eder Herrera MD#### PTHNCA ####[address] [address] Lab Director: Jimenez Pruett MD UA w/Reflex Cultureon 2024 Bilirubin, SemiQt,Ur Negative Normal NEG [facility] Comment on above: Performed By: #### U AX, MG, RENP, URI, URTPRT, UMICAO, CBC ####[address] , [place] 3236583 Lab Director: Eder Herrera MD#### PTHNCA ####[address] [address] Lab Director: Jimenez Pruett MD Blood, Urine Negative Normal NEG [facility] Comment on above: Performed By: #### U AX, MG, RENP, URI, URTPRT, UMICAO, CBC ####[address] , [place] 8291683 Lab Director: Eder Herrera MD#### PTHNCA ####[address] 5473208 Lab Director: Jimenez Pruett MD Clarity (U) Clear Normal CLEAR [facility] Comment on above: Performed By: #### U AX, MG, RENP, URI, URTPRT, UMICAO, CBC ####[facility] , [place] 8941983 Lab Director: Eder Herrera MD#### PTHNCA ####[address] [place], [place] 5116508 Lab Director: Jimenez Pruett MD Color (U) Yellow Normal YEL [facility] Comment on above: Performed By: #### U AX, MG, RENP, URI, URTPRT, UMICAO, CBC ####[address] , [place] 5952483 Lab Director: Eder Herrera MD#### PTHNCA ####[address] 6686008 Lab Director: Jimenez Pruett MD Glucose Ql (U) Negative Normal NEG [facility] Comment on above: Performed By: #### U AX, MG, RENP, URI, URTPRT, UMICAO, CBC ####[address] , [place] 2960883 Lab Director: Eder Herrera MD#### PTHNCA ####[address] 3108308 Lab Director: Jimenez Pruett MD Ketones Ql (U) Negative Normal NEG [facility] Comment on above: Performed By: #### U AX, MG, RENP, URI, URTPRT, UMICAO, CBC ####[facility] , [place] 6600683 Lab Director: Eder Herrera MD#### PTHNCA ####[address] 9503008 Lab Director: Jimenez Pruett MD Leukocyte esterase Test strip Ql (U) Negative Normal NEG [facility] Comment on above: Performed By: #### U AX, MG, RENP, URI, URTPRT, UMICAO, CBC ####[address] [place], [place] [address])[phone] Director: Eder Herrera MD#### PTHNCA ####[address] [address] Lab Director: Jimenez Pruett MD Nitrite,Ur Negative Normal NEG [facility] Comment on above: Performed By: #### U AX, MG, RENP, URI, URTPRT, UMICAO, CBC ####[address] [place], [place] [address])[phone] Director: Eder Herrera MD#### PTHNCA ####[address] [address] Lab Director: Jimenez Pruett MD PH,Ur 6.0 Normal 5.0-9.0 [facility] Comment on above: Performed By: #### U AX, MG, RENP, URI, URTPRT, UMICAO, CBC ####[address] [place] 2905583 Lab Director: Eder Herrera MD#### PTHNCA ####[address] [address] Lab Director: Jimenez Pruett MD Protein Ql (U) Negative Normal NEG [facility] Comment on above: Performed By: #### U AX, MG, RENP, URI, URTPRT, UMICAO, CBC ####[address] [place], [place] 4230383 Lab Director: Eder Herrera MD#### PTHNCA ####[address] [place] [address] Lab Director: Jimenez Pruett MD Spec. Enochs,Ur 1.010 Normal 1.010-1.020 [facility] Comment on above: Performed By: #### U AX, MG, RENP, URI, URTPRT, UMICAO, CBC ####[address] [place], [place] 0290683 Lab Director: Eder Herrera MD#### PTHNCA ####[address] [place], [place] 8569308 Lab Director: Jimenez Pruett MD Urobilinogen,Ur Normal Normal 0.0-1.0 [facility] Comment on above: Performed By: #### U AX, MG, RENP, URI, URTPRT, UMICAO, CBC ####[address] [place], [place] 3291783 lab Director: Eder Herrera MD#### PTHNCA ####[address] [address] Lab Director: Jimenez Pruett MD Uric Acidon 06-27-2024 Urate [Mass/Vol] 7.0 mg/dL 3.4 - 7.0 mg/dL [facility] Urate [Mass/Vol] 7.0 mg/dL Normal 3.4-7.0 [facility] Comment on above: Performed By: #### U AX, MG, RENP, URI, URTPRT, UMICAO, CBC ####[address] [place] 29[address]83 lab Director: Eder Herrera MD#### PTHNCA ####[address] [place] [address] Lab Director: Jimenez Pruett MD Urinalysis with Reflex to Cu ltureon 06-27-2024 Bilirubin Ql (U) Negative NEGATIVE [facility] Clarity (U) Clear Clear Bon [facility] Color (U) Yellow Yellow Bon [facility] Glucose Test strip (U) [Mass/Vol] Negative NEGATIVE mg/dL [facility] Hemoglobin Auto test strip Ql (U) Negative NEGATIVE [facility] Ketones (U) [Mass/Vol] Negative NEGAT PAO mg/dL [facility] Leukocyte esterase Test strip Ql (U) Negative NEGATIVE [facility] Nitrite Ql (U) Negative NEGATIVE [facility] pH (U) 6.0 [pH] 5.0 - 9.0 [facility] Protein (U) [Mass/Vol] Negative NEGAT PAO mg/dL [facility] Specific gravity (U) [Rel density] 1.010 1.010 - 1.020 [facility] Urobilinogen Qn (U) Normal 0.0 - 1. 0 EU/dL [facility] Urinalysis,Microon 5 Epithelial cells LM Ql (Urine sed) 2 TO 5 Normal 0-5 [facility] Comment on above: Performed By: #### U AX, MG, RENP, URI, URTPRT, UMICAO, CBC ####[facility] [place] [address] Lab Director: Eder Herrera MD#### PTHNCA ####[address] [phone] Lab Director: Jimenez Pruett MD Urine RBC's None Normal 0-2 [facility] Comment on above: Performed By: #### U AX, MG, RENP, URI, URTPRT, UMICAO, CBC ####[facility] [place] [address] Lab Director: Eder Herrera MD#### PTHNCA ####[address] [place], [place] 4075808 Lab Director: Jimenez Pruett MD Urine WBC's 0 TO 2 Normal 0-5 [facility] Comment on above: Performed By: #### U AX, MG, RENP, URI, URTPRT, UMICAO, CBC ####[facility] [place], [place] 7399383 Lab Director: Eder Herrera MD#### PTHNCA ####[facility] [place], [place] 9211008 lab Director: Jimenez Pruett MD Microscopic Urinalysison Epithelial cells LM.HPF (Urine sed) [#/Area] 0 TO 2 [facility] RBC LM.HPF (Urine sed) [#/Area] None [facility] WBC LM.HPF (Urine sed) [#/Area] None [facility] Protein / creatinine ratio, urineon 05-13-2024 Creatinine (U) [Mass/Vol] 78.0 mg/dL 39.0 - 259.0 mg/dL [facility] Protein (U) [Mass/Vol] mg/dL mg/dL Brandon n [facility] Comment on above: No normal range esta blished. Urine Total Protein Creatinine Ratio Can not be calculated 0.00 - 0.20 [facility] Protein,Tot,[place] Uron 2023 Creatinine [Mass/Vol] 78.0 mg/dL Normal 39.0-259.[address] [facility] Comment on above: Performed By: #### U RTPRT, [facility], UAX ####[address] , [place] 7772583 Lab Director: Eder Herrera MD Tot Prot. Conc. <6 Normal [facility] Comment on above: Result Comment: No n ormal range established. Performed By: #### U RTPRT, [facility], UAX ####[facility] [place], [place] 7550383 Lab Director: Eder Herrera MD TP/Cre Ratio Can not be calculated Normal 0.00-0.[address] [facility] Comment on above: Performed By: #### U RTPRT, UMICAO, UAX ####[address] [place] [address] Lab Director: Eder Herrera MD UA w/Reflex Cultureon 2023 Bilirubin, SemiQt,Ur Negative Normal NEG [facility] Comment on above: Performed By: #### U RTPRT, UMICAO, UAX ####[address] [place] [address] Lab Director: Eder Herrera MD Blood, Urine Negative Normal NEG [facility] Comment on above: Performed By: #### U RTPRT, UMICAO, UAX ####[address] , [place] 8810583 Lab Director: Eder Herrera MD Clarity (U) Clear Normal CLEAR [facility] Comment on above: Performed By: #### U RTPRT, UMICAO, UAX ####[address] , [place] 9198083 Lab Director: Eder Herrera MD Color (U) Yellow Normal YEL [facility] Comment on above: Performed By: #### U RTPRT, UMICAO, UAX ####[address] [place] [address] Lab Director: Eder Herrera MD Glucose Ql (U) 3+ mg/dL Abnormal NEG [facility] Comment on above: Performed By: #### U RTPRT, UMICAO, UAX ####[address] , [place] 5463283 Lab Director: Eder Herrera MD Ketones Ql (U) Negative Normal NEG [facility] Comment on above: Performed By: #### U RTPRT, UMICAO, UAX ####[address] , [place] 1393783 Lab Director: Eder Herrera MD Leukocyte esterase Test strip Ql (U) Negative Normal NEG [facility] Comment on above: Performed By: #### U RTPRT, UMICAO, UAX ####[address] , [place] 7444483 lab Director: Eder Herrera MD Nitrite,Ur Negative Normal NEG [facility] Comment on above: Performed By: #### U RTPRT, [facility], UAX ####[address] , [place] 5577383 lab Director: Eder Herrera MD PH,Ur 6.0 Normal 5.0-9.0 [facility] Comment on above: Performed By: #### U RTPRT, [facility], UAX ####[address] , [place] 056[address]83 lab Director: Eder Herrera MD Protein Ql (U) Negative Normal NEG [facility] Comment on above: Performed By: #### U RTPRT, [facility], UAX ####[address] [place] [address] lab Director: Eder Herrera MD Spec. Enochs,Ur 1.010 Normal 1.010-1.020 [facility] Comment on above: Performed By: #### U RTPRT, UMICAO, UAX ####[address] [place] [address] lab Director: Eder Herrera MD Urobilinogen,Ur Normal Normal 0.0-1.0 [facility] Comment on above: Performed By: #### U RTPRT, [facility], UAX ####[address] [place] [address] lab Director: Eder Herrera MD Urinalysis with Reflex to Cu ltureon 05-13-2024 Bilirubin Ql (U) Negative NEGATIVE [facility] Glucose Test strip (U) [Mass/Vol] 3+ Abnormal NEGATIVE mg/dL [facility] Hemoglobin Auto test strip Ql (U) Negative NEGATIVE [facility] Interpretation and review of laboratory results Abnormal [facility] Ketones (U) [Mass/Vol] Negative NEGAT PAO mg/dL [facility] Nitrite Ql (U) Negative NEGATIVE [facility] pH (U) 6.0 [pH] 5.0 - 9.0 [facility] Protein (U) [Mass/Vol] Negative NEGAT PAO mg/dL [facility] Specific gravity (U) [Rel density] 1.010 1.010 - 1.020 [facility] Urobilinogen Qn (U) Normal 0.0 - 1. 0 EU/dL [facility] Urinalysis,Microon 4 Epithelial cells LM Ql (Urine sed) 0 TO 2 Normal 0-5 [facility] Comment on above: Performed By: #### U RTPRT, [facility], UAX ####[facility] , [place] 5929583 lab Director: Eder Herrera MD Urine RBC's None Normal 0-2 [facility] Comment on above: Performed By: #### U RTPRT, [facility], UAX ####[facility] [place] [address] , [place] 1521383 lab Director: Eder Herrera MD Urine WBC's None Normal 0-5 [facility] Comment on above: Performed By: #### U RTPRT, [facility], UAX ####[facility] , [place] 6433283 lab Director: Eder Herrera MD CBCon 05-11-2024 Erythrocyte distribution width (RBC) [Ratio] 12.4 % Normal 11.8-14.4 [facility] Comment on above: Performed By: #### M G, RENP, URI, CBC ####[address] [place], [place] 4299683 Lab Director: Eder Herrera MD#### PTHNCA ####[address] 9374908 Lab Director: Jimenez Pruett MD Hematocrit (Bld) [Volume fraction] 39.9 % Low 40.7-50.3 [facility] Comment on above: Performed By: #### VALARIE Foster URI, CBC ####[address] [place], [place] 6485083 Lab Director: Eder Herrera MD#### PTHNCA ####[address] [address] Lab Director: Jimenez Pruett MD Hemoglobin (Bld) [Mass/Vol] 13.6 g/dL Normal 13.0-17.0 [facility] Comment on above: Performed By: #### VALARIE Foster URI, CBC ####[address] [place], [place] 6553283 Lab Director: Eder Herrera MD#### PTHNCA ####[address] [address] Lab Director: Jimenez Pruett MD MCH (RBC) [Entitic mass] 29.6 pg Normal 25.2-33.5 [facility] Comment on above: Performed By: #### VALARIE Foster URI, CBC ####[address] [place], [place] 9631283 Lab Director: Eder Herrera MD#### PTHNCA ####[address] [place], [place] 8833808 Lab Director: Jimenez Pruett MD MCHC (RBC) [Mass/Vol] 34.1 g/dL Normal 28.4-34.8 [facility] Comment on above: Performed By: #### VALARIE Foster URI, CBC ####[address] [place] [address]83[facility])[phone] Director: Eder Herrera MD#### PTHNCA ####[address] [phone] Director: Jimenez Pruett MD MCV (RBC) [Entitic vol] 86.7 fL Normal 82.6-102.9 B on [facility] Comment on above: Performed By: #### VALARIE Foster URI, CBC ####[address] [place] [address]83[facility])[phone] Director: Eder Herrera MD#### PTHNCA ####[place], [place] [phone] Director: Jimenez Pruett MD Platelet mean volume (Bld) [Entitic vol] 12.0 fL Normal 8.1-13.5 Bon [facility] Comment on above: Performed By: #### VALARIE Foster URI, CBC ####[address] [place] 29[address]83 Lab Director: Eder Herrera MD#### PTHNCA ####[place], [place] [phone] Director: Jimenez Pruett MD Platelets (Bld) [#/Vol] 272 10*3/uL Normal 138-453 Bon [facility] Comment on above: Performed By: #### VALARIE Foster URI, CBC ####[address] [place] [address] Lab Director: Eder Herrera MD#### PTHNCA ####[address] [phone] Director: Jimenez Pruett MD RBC (Bld) [#/Vol] 4.60 10*6/uL Normal 4.21-5.77 [facility] Comment on above: Performed By: #### VALARIE Foster URI, CBC ####[address] [place], [place] 1673783 Lab Director: Eder Herrera MD#### PTHNCA ####[address] [place], [place] 5533608 Lab Director: Jimenez Pruett MD Interpretation and review of laboratory results Abnormal [facility] Nucleated RBC/100 WBC (Bld) [Ratio] 0.0 % 0.0 per 100 WBC [facility] WBC other (Bld) [#/Vol] 6.4 B on [facility] NRBC Automated 0.0 per 100 WBC Normal 0.0 [facility] Comment on above: Performed By: #### VALARIE Foster URI, CBC ####[address] [place], [place] 1990083 Lab Director: Eder Herrera MD#### PTHNCA ####[address] [place] [address] Lab Director: Jimenez Pruett MD WBC (Bld) [#/Vol] 6.4 10*3/uL Normal 3.5-11.3 [facility] Comment on above: Performed By: #### VALARIE Foster URI, CBC ####[address] [place], [place] 2093983 Lab Director: Eder Herrera MD#### PTHNCA ####[facility] [place], [place] 7979308 Lab Director: Jimenez Pruett MD Magnesiumon 05-11-2024 Magnesium [Mass/Vol] 1.8 mg/dL 1.6 - 2 .4 mg/dL [facility] Magnesium [Mass/Vol] 1.8 mg/dL Normal 1.6-2.4 [facility] Comment on above: Performed By: #### VALARIE Foster URI, CBC ####[facility] [place] [address] lab Director: Eder Herrera MD#### PTHNCA ####[facility] [id number] [place], [place] 9729708 Lab Director: Jimenez Pruett MD No Panel Informationon 05-11 Interpretation and review of laboratory results Abnormal [facility] PTH, Intacton 05-11-2024 Interpretation and review of laboratory results Abnormal [facility] Parathyrin.intact [Mass/Vol] 164.0 pg/mL High 15 - 65 pg/mL [facility] PTH, Intact 164.0 pg/mL High 15-65 [facility] Comment on above: Performed By: #### VALARIE Foster URI, CBC ####[facility] [place] [address] lab Director: Eder Herrera MD#### PTHNCA ####[facility] [id number] [place], [place] 3162308 lab Director: Jimenez Pruett MD Renal Function Panelon 05-11 Albumin [Mass/Vol] 4.1 g/dL 3.5 - 5.2 g/dL [facility] Anion gap [Moles/Vol] 17 mmol/L High 9 - 16 mmol/L [facility] Calcium [Mass/Vol] 8.8 mg/dL 8.6 - 10. 4 mg/dL [facility] Chloride [Moles/Vol] 89 mmol/L Low 98 - 10 7 mmol/L [facility] CO2 [Moles/Vol] 30 mmol/L 20 - 31 mmol/L [facility] Creatinine [Mass/Vol] 2.7 mg/dL High 0.70 - 1.20 mg/dL [facility] Est, Glom Filt Rate 26 Low - PINF [facility] Comment on above: These results are [...] 216 mg/dL High 74 - 99 mg/dL [facility] Phosphate [Mass/Vol] 2.4 mg/dL Low 2.5 - 4 .5 mg/dL [facility] Potassium [Moles/Vol] 2.8 mmol/L Critically low 3.7 - 5.3 mmol/L [facility] Sodium [Moles/Vol] 136 mmol/L 136 - 145 mmol/L [facility] Urea nitrogen [Mass/Vol] 86 mg/dL High 8 - 23 mg/dL [facility] Urea nitrogen/Creatinine [Mass ratio] 32 mg/mg High 9 - 20 [facility] Albumin [Mass/Vol] 4.1 g/dL Normal 3.5-5.2 [facility] Comment on above: Performed By: #### VALARIE Foster URI, CBC ####[address] [place] 5858183 Lab Director: Eder Herrera MD#### PTHNCA ####[address] [place], [place] 2163908 Lab Director: Jimenez Pruett MD Anion gap [Moles/Vol] 17 mmol/L High 9-[address] [facility] Comment on above: Performed By: #### VALARIE Foster URI, CBC ####[address] [place] 5858183 Lab Director: Eder Herrera MD#### PTHNCA ####[address] [place], [place] 5678208 Lab Director: Jimenez Pruett MD BUN/CRE Ratio 32 High 9-20 [facility] Comment on above: Performed By: #### VALARIE Foster URI, CBC ####[address] [place] [address]([facility])[phone] Director: Eder Herrera MD#### PTHNCA ####[address] [address])[phone] Director: Jimenez Pruett MD Calcium [Mass/Vol] 8.8 mg/dL Normal 8.6-10.4 [facility] Comment on above: Performed By: #### VALARIE Foster URI, CBC ####[address] [place] 5858189([facility])[phone] Director: Eder Herrera MD#### PTHNCA ####[address] [address])[phone] Director: Jimenez Pruett MD Chloride [Moles/Vol] 89 mmol/L Low 98-107 [facility] Comment on above: Performed By: #### VALARIE Foster URI, CBC ####[address] [place] [address]([facility])[phone] Director: Eder Herrera MD#### PTHNCA ####[address] [address])[phone] Director: Jimenez Pruett MD CO2 [Moles/Vol] 30 mmol/L Normal 20-31 [facility] Comment on above: Performed By: #### VALARIE Foster URI, CBC ####[address] [place] [address]([facility] [facility])[phone] Director: Eder Herrera MD#### PTHNCA ####[address] [place] [address] Lab Director: Jimenez Pruett MD Creatinine [Mass/Vol] 2.7 mg/dL High 0.70-1.[address] [facility] Comment on above: Performed By: #### M VALARIE Saha URI, CBC ####[address] [place], [place] [phone] Lab Director: Eder Herrera MD#### PTHNCA ####[address] [place] [address] Lab Director: Jimenez Pruett MD GFR/1.73 sq M.predicted among non-blacks MDRD (S/P/Bld) [Vol rate/Area] 26 mL/min/{1.73_m2} Low >60 [facility] Comment on above: Result Comment: Thes [...] Performed By: #### VALARIE Foster URI, CBC ####[address] [place] [address] Lab Director: Eder Herrera MD#### PTHNCA ####[facility] [place] [address] Lab Director: Jimenez Pruett MD Glucose [Mass/Vol] 216 mg/dL High 74-99 [facility] Comment on above: Performed By: #### M VALARIE Saha URI, CBC ####[address] [place] [address] Lab Director: Eder Herrera MD#### PTHNCA ####[facility] [place], [place] [phone] Director: Jimenez Pruett MD Phosphorus, Inorg. 2.4 mg/dL Low 2.5-4.5 [facility] Comment on above: Performed By: #### M G RENP, URI, CBC ####[address] [place] [address]([facility])[phone] Director: Eder Herrera MD#### PTHNCA ####[address] [place] [address] Lab Director: Jimenez Pruett MD Potassium [Moles/Vol] 2.8 mmol/L Critically low 3.7-5.3 [facility] Comment on above: Performed By: #### M MIK SahaP URI, CBC ####[address] [place] [address]([facility])[phone] Director: Eder Herrera MD#### PTHNCA ####[address] [address])[phone] Director: Jimenez Pruett MD Sodium [Moles/Vol] 136 mmol/L Normal 136-145 [facility] Comment on above: Performed By: #### MIK FosterP URI, CBC ####[address] [place], [place] 38[address] Lab Director: Eder Herrera MD#### PTHNCA ####[address] [address] Lab Director: Jimenez Pruett MD Urea nitrogen [Mass/Vol] 86 mg/dL High 8-23 [facility] Comment on above: Performed By: #### M MIK SahaP URI, CBC ####[address] [place], [place] 37[address] Lab Director: Eder Herrera MD#### PTHNCA ####[facility] [place], [place] [phone] Director: Jimenez Pruett MD Uric Acidon 05-11-2024 Urate [Mass/Vol] 13.2 mg/dL High 3.4 - 7.0 mg/dL [facility] Urate [Mass/Vol] 13.2 mg/dL High 3.4-7.0 [facility] Comment on above: Performed By: #### M G, RENP, URI, CBC ####[facility] [address] [place] , [place] [phone] Lab Director: Eder Herrera MD#### PTHNCA ####[facility] [address] [place] [address] Lab Director: Jimenez Pruett MD PTH, Intacton 05-08-2024 PTH, Intact 166.0 pg/mL High [facility] Comment on above: Performed By: #### I NPTH ####[facility] [place] [address] Lab Director: Jimenez Pruett MD#### MG, CBC, BMP, BNP, RICHAR ####[facility] [address] [place] [address] Lab Director: Eder Herrera MD Basic Metabolic Panel 04-24 Anion gap [Moles/Vol] 15 mmol/L 9 - 16 mmol/L [facility] Calcium [Mass/Vol] 9.6 mg/dL 8.6 - 10. 4 mg/dL [facility] Chloride [Moles/Vol] 95 mmol/L Low 98 - 10 7 mmol/L [facility] CO2 [Moles/Vol] 29 mmol/L 20 - 31 mmol/L [facility] Creatinine [Mass/Vol] 2.1 mg/dL High 0.70 - 1.20 mg/dL [facility] Est, Glom Filt Rate 34 Low - PINF [facility] Comment on above: These results are [...] 150 mg/dL High 74 - 99 mg/dL [facility] Potassium [Moles/Vol] 3.4 mmol/L Low 3.7 - 5.3 mmol/L [facility] Sodium [Moles/Vol] 139 mmol/L 136 - 145 mmol/L [facility] Urea nitrogen [Mass/Vol] 62 mg/dL High 8 - 23 mg/dL [facility] Urea nitrogen/Creatinine [Mass ratio] 30 mg/mg High 9 - 20 [facility] Basic Metabolic Profon 05-06 Anion gap [Moles/Vol] 15 mmol/L Normal -[address] [facility] Comment on above: Performed By: #### I NPTH ####[place] [address] Lab Director: Jimenez Pruett MD#### MG, CBC, BMP, BNP, RICHAR ####[address] [place] [address] Lab Director: Eder Herrera MD BUN/CRE Ratio 30 High - [facility] Comment on above: Performed By: #### I NPTH ####[address] [phone] Lab Director: Jimenez Pruett MD#### MG, CBC, BMP, BNP, RICHAR ####[address] [place] 5858183 Lab Director: Eder Herrera MD Calcium [Mass/Vol] 9.6 mg/dL Normal 8.6-10.4 [facility] Comment on above: Performed By: #### I NPTH ####[address] [place] [address] Lab Director: Jimenez Pruett MD#### MG, CBC, BMP, BNP, RICHAR ####[address] [place], [place] [address] Lab Director: Eder Herrera MD Chloride [Moles/Vol] 95 mmol/L Low 98-107 [facility] Comment on above: Performed By: #### I NPTH ####[address] [place] [address] Lab Director: Jimenez Pruett MD#### MG, CBC, BMP, BNP, RICHAR ####[address] [place], [place] 9[address]83 Lab Director: Eder Herrera MD CO2 [Moles/Vol] 29 mmol/L Normal 20-31 [facility] Comment on above: Performed By: #### I NPTH ####[address] [address] Lab Director: Jimenez Pruett MD#### MG, CBC, BMP, BNP, RICHAR ####[address] [place], [place] 3082683 Lab Director: Eder Herrera MD Creatinine [Mass/Vol] 2.1 mg/dL High 0.70-1.[address] [facility] Comment on above: Performed By: #### I NPTH ####[address] [phone] Lab Director: Jimenez Pruett MD#### MG, CBC, BMP, BNP, RICHAR ####[address] [place], [place] 883[address]83 Lab Director: Eder Herrera MD GFR/1.73 sq M.predicted among non-blacks MDRD (S/P/Bld) [Vol rate/Area] 34 mL/min/{1.73_m2} Low >60 [facility] Comment on above: Result Comment: Thes [...] tubular secretion. Performed By: #### I NPTH ####[address] [address] Lab Director: Jimenez Pruett MD#### MG, CBC, BMP, BNP, RICHAR ####[address] [place], [place] [address]83 Lab Director: Eder Herrera MD Glucose [Mass/Vol] 150 mg/dL High 74-99 [facility] Comment on above: Performed By: #### I NPTH ####[address] [address] Lab Director: Jimenez Pruett MD#### MG, CBC, BMP, BNP, RICHAR ####[address] [place], [place] 6100783 Lab Director: Eder Herrera MD Potassium [Moles/Vol] 3.4 mmol/L Low 3.7-5.[address] [facility] Comment on above: Performed By: #### I NPTH ####[address] [address] Lab Director: Jimenez Pruett MD#### MG, CBC, BMP, BNP, RICHAR ####[address] [place], [place] 6565683 Lab Director: Eder Herrera MD Sodium [Moles/Vol] 139 mmol/L Normal 136-145 [facility] Comment on above: Performed By: #### I NPTH ####[address] [address] Lab Director: Jimenez Pruett MD#### MG, CBC, BMP, BNP, RICHAR ####[address] [place] [address] [facility] Director: Eder Herrera MD Urea nitrogen [Mass/Vol] 62 mg/dL High 8-23 [facility] Comment on above: Performed By: #### I NPTH ####[address] [place] [address] Lab Director: Jimenez Pruett MD#### MG, CBC, BMP, BNP, RICHAR ####[address] [place] [address] lab Director: Eder Herrera MD Brain Natri. Peptideon 05-06 Natriuretic peptide B (Bld) [Mass/Vol] 337 pg/mL High 0-125 [facility] Comment on above: Performed By: #### I NPTH ####[address] [place] [address] Lab Director: Jimenez Pruett MD#### MG, CBC, BMP, BNP, RICHAR ####[address] [place], [place] 6619383 lab Director: Eder Herrera MD Brain Natriuretic Peptideon 05-06-2024 Natriuretic peptide B (Bld) [Mass/Vol] 337 pg/mL High 0 - 125 pg/mL [facility] CBCon 05-06-2024 Erythrocyte distribution width (RBC) [Ratio] 12.5 % 11.8 - 14.4 % [facility] Hematocrit (Bld) [Volume fraction] 41.4 % 40.7 - 50.3 % [facility] Hemoglobin (Bld) [Mass/Vol] 13.6 g/dL 13.0 - 17.0 g/dL [facility] MCH (RBC) [Entitic mass] 29.4 pg 25.2 - 33.5 pg [facility] MCHC (RBC) [Mass/Vol] 32.9 g/dL 28.4 - 34.8 g/dL [facility] MCV (RBC) [Entitic vol] 89.6 fL 82.6 - 102.9 fL [facility] Nucleated RBC/100 WBC (Bld) [Ratio] 0.0 % 0.0 per 100 WBC [facility] Platelet mean volume (Bld) [Entitic vol] 11.6 fL 8.1 - 13.5 fL [facility] Platelets (Bld) [#/Vol] 283 10*3/uL [facility] RBC (Bld) [#/Vol] 4.62 10*6/uL 4.21 - 5.7 7 m/uL [facility] WBC other (Bld) [#/Vol] 7.3 B on [facility] Erythrocyte distribution width (RBC) [Ratio] 12.5 % Normal 11.8-14.4 [facility] Comment on above: Performed By: #### I NPTH ####[address] [address] Lab Director: Jimenez Pruett MD#### MG, CBC, BMP, BNP, RICHAR ####[address] [place] 5858183 Lab Director: Eder Herrera MD Hematocrit (Bld) [Volume fraction] 41.4 % Normal 40.7-50.3 [facility] Comment on above: Performed By: #### I NPTH ####[address] [address] Lab Director: Jimenez Pruett MD#### MG, CBC, BMP, BNP, RICHAR ####[address] [place] 5858183 Lab Director: Eder Herrera MD Hemoglobin (Bld) [Mass/Vol] 13.6 g/dL Normal 13.0-17.0 [facility] Comment on above: Performed By: #### I NPTH ####[address] [phone] Lab Director: Jimenez Pruett MD#### MG, CBC, BMP, BNP, RICHAR ####[address] [place] [address]83 Lab Director: Eder Herrera MD MCH (RBC) [Entitic mass] 29.4 pg Normal 25.2-33.5 [facility] Comment on above: Performed By: #### I NPTH ####[address] [address] Lab Director: Jimenez Pruett MD#### MG, CBC, BMP, BNP, RICHAR ####[address] [place] 29[address]83 lab Director: Eder Herrera MD MCHC (RBC) [Mass/Vol] 32.9 g/dL Normal 28.4-34.[address] [facility] Comment on above: Performed By: #### I NPTH ####[place] [address] Lab Director: Jimenez Pruett MD#### MG, CBC, BMP, BNP, RICHAR ####[address] [place] [address] lab Director: Eder Herrera MD MCV (RBC) [Entitic vol] 89.6 fL Normal 82.6-102.9 M [facility] Comment on above: Performed By: #### I NPTH ####[place] [address] Lab Director: Jimenez Pruett MD#### MG, CBC, BMP, BNP, RICHAR ####[address] [place] [address] lab Director: Eder Herrera MD NRBC Automated 0.0 per 100 WBC Normal 0.0 [facility] Comment on above: Performed By: #### I NPTH ####[address] [address] Lab Director: Jimenez Pruett MD#### MG, CBC, BMP, BNP, RICHAR ####[address] [place], [place] 0[address]0183 Lab Director: Eder Herrera MD Platelet mean volume (Bld) [Entitic vol] 11.6 fL Normal 8.1-13.5 [facility] Comment on above: Performed By: #### I NPTH ####[address] [place], [place] [phone] Director: Jimenez Pruett MD#### MG, CBC, BMP, BNP, RICHAR ####[address] [place], [place] 6383583 Lab Director: Eder Herrera MD Platelets (Bld) [#/Vol] 283 10*3/uL Normal 138-453 [facility] Comment on above: Performed By: #### I NPTH ####[address] [address])[phone] Director: Jimenez Pruett MD#### MG, CBC, BMP, BNP, RICHAR ####[address] [place] [address]83 Lab Director: Eder Herrera MD RBC (Bld) [#/Vol] 4.62 10*6/uL Normal 4.21-5.77 [facility] Comment on above: Performed By: #### I NPTH ####[address] [phone] Director: Jimenez Pruett MD#### MG, CBC, BMP, BNP, RICHAR ####[address] [place], [place] 9939083 Lab Director: Eder Herrera MD WBC (Bld) [#/Vol] 7.3 10*3/uL Normal 3.5-11.3 [facility] Comment on above: Performed By: #### I NPTH ####[address] [place], [place] [phone] Director: Jimenez Pruett MD#### MG, CBC, BMP, BNP, RICHAR ####[facility] [place] [address] lab Director: Eder Herrera MD Magnesiumon 05-06-2024 Magnesium [Mass/Vol] 1.6 mg/dL 1.6 - 2 .4 mg/dL [facility] Magnesium [Mass/Vol] 1.6 mg/dL Normal 1.6-2.4 [facility] Comment on above: Performed By: #### I NPTH ####[facility] [address] [place] [address] Lab Director: Jimenez Pruett MD#### MG, CBC, BMP, BNP, RICHAR ####[address] [place] [address] lab Director: Eder Herrera MD No Panel Informationon 05-06 Interpretation and review of laboratory results Abnormal [facility] PTH, Intacton 05-06-2024 Calcium [Moles/Vol] 1.25 mmol/L Normal 1.13-1.33 [facility] Comment on above: Performed By: #### I NPTH ####[facility] [address] [place] [address] Lab Director: Jimenez Pruett MD#### MG, CBC, BMP, BNP, RICHAR ####[address] , [place] [phone] lab Director: Eder Herrera MD Phosphoruson 05-06-2024 Phosphate [Mass/Vol] 2.1 mg/dL Low 2.5 - 4 .5 mg/dL [facility] Phosphorus, Inorg.on 024 Phosphorus, Inorg. 2.1 mg/dL Low 2.5-4.5 [facility] Comment on above: Performed By: #### I NPTH ####[facility] [address] [place], [place] 8249808 Lab Director: Jimenez Pruett MD#### MG, CBC, BMP, BNP, RICHAR ####[facility] [address] [place] [address] Lab Director: Eder Herrera MD Vascular duplex lower extrem ity arteries bilateralOrdered By: Saadia Donovan on 04-26-2024 Left ANTONELLA mid PSV 0.0 cm/s [facility] [employer] Work Phone: Left HAND TACKER dist PSV 176.3 cm/s Bon Sec [email or web address] Phone: Left peroneal mid PSV 104.8 cm/s Bon [employer] Phone: Left PFA prox PSV 148.4 cm/s Bon Sec [email or web address] Phone: Left Pop A dist PSV 97.0 cm/s Bon S [employer] Work Phone: Left Pop A prox PSV 101.0 cm/s Bon S [employer] Phone: Left Pop A prox karon ratio 1.38 Bon [employer] Phone: Left FINANCIAL SERVICES TECHNICIAN mid PSV 116.6 cm/s [facility] [employer] Phone: Left SFA dist PSV 73.4 cm/s Bon Sec [email or web address] Phone: Left SFA dist karon ratio 0.45 B on [employer] Phone: Left SFA mid PSV 162.3 cm/s [facility] [employer] Work Phone: Left SFA mid karon ratio 0.98 Brandon n [employer] Phone: Left SFA prox PSV 165.2 cm/s Bon [facility] [email or web address] Phone: Left SFA prox karon ratio 0.94 B on [employer] Phone: Right ANTONELLA mid PSV 39.8 cm/s Bon [facility] [email or web address] Phone: Right HAND TACKER dist PSV 151.6 cm/s Bon [employer] Work Phone: Right HAND TACKER prox PSV 94.1 cm/s [facility] [employer] Work Phone: Right peronal mid PSV 176.3 cm/s Bon [employer] Work Phone: Right Pop A dist PSV 170.2 cm/s Bon [employer] Work Phone: Right Pop A prox PSV 116.8 cm/s Bon [employer] Work Phone: Right Pop A prox karon ratio 0.86 Bon [employer] Work Phone: Right FINANCIAL SERVICES TECHNICIAN mid PSV 33.3 cm/s Bon [facility] [employer] Work Phone: Right SFA dist PSV 135.3 cm/s [facility] [employer] Work Phone: Right SFA dist karon ratio 1.39 Bon [employer] Work Phone: Right SFA mid PSV 97.0 cm/s Bon Sec [employer] Work Phone: Right SFA mid karon ratio 0.7 B on [employer] Phone: Right SFA prox PSV 144.4 cm/s [facility] [employer] Work Phone: Right SFA prox karon ratio 1.0 Bon [employer] Work Phone: Bon [employer] Work Phone: Vascular duplex lower extrem ity [...] Artery: Patent and multiphasic (normal) Doppler waveforms. [facility] CV CPACS Vascular duplex lower extrem ity arteries bilateralon 04-25-2024 Radiology Study observation (narrative) [facility] CBCon 04-01-2024 Erythrocyte distribution width (RBC) [Ratio] 12.9 % 11.8 - 14.4 % [facility] Hematocrit (Bld) [Volume fraction] 41.9 % 40.7 - 50.3 % [facility] Hemoglobin (Bld) [Mass/Vol] 13.7 g/dL 13.0 - 17.0 g/dL [facility] MCH (RBC) [Entitic mass] 29.3 pg 25.2 - 33.5 pg [facility] MCHC (RBC) [Mass/Vol] 32.7 g/dL 28.4 - 34.8 g/dL [facility] MCV (RBC) [Entitic vol] 89.7 fL 82.6 - 102.9 fL [facility] Nucleated RBC/100 WBC (Bld) [Ratio] 0.0 % 0.0 per 100 WBC [facility] Platelet mean volume (Bld) [Entitic vol] 11.2 fL 8.1 - 13.5 fL [facility] Platelets (Bld) [#/Vol] 243 10*3/uL [facility] RBC (Bld) [#/Vol] 4.67 10*6/uL 4.21 - 5.7 7 m/uL [facility] WBC other (Bld) [#/Vol] 6.0 B on [facility] Erythrocyte distribution width (RBC) [Ratio] 12.9 % Normal 11.8-14.4 [facility] Comment on above: Performed By: #### P THNCA ####[address] [address] Lab Director: Jimenez Pruett MD#### URI, MG, RENP, CBC ####[address] [place] 29[address]83 [facility] Director: Eder Herrera MD Hematocrit (Bld) [Volume fraction] 41.9 % Normal 40.7-50.3 [facility] Comment on above: Performed By: #### P THNCA ####[address] [address] Lab Director: Jimenez Pruett MD#### URI, MG, RENP, CBC ####[address] [place] 29[address] Lab Director: Eder Herrera MD Hemoglobin (Bld) [Mass/Vol] 13.7 g/dL Normal 13.0-17.0 [facility] Comment on above: Performed By: #### P THNCA ####[address] [phone] Lab Director: Jimenez Pruett MD#### URI, MG, RENP, CBC ####[address] [place] 29[address] Lab Director: Eder Herrera MD MCH (RBC) [Entitic mass] 29.3 pg Normal 25.2-33.5 [facility] Comment on above: Performed By: #### P THNCA ####[address] [address] Lab Director: Jimenez Pruett MD#### URI, MG, RENP, CBC ####[address] [place] 8805583 lab Director: Eder Herrera MD MCHC (RBC) [Mass/Vol] 32.7 g/dL Normal 28.4-34.[address] [facility] Comment on above: Performed By: #### P THNCA ####[address] [address] Lab Director: Jimenez Pruett MD#### URI, MG, RENP, CBC ####[address] [place] 29[address] Lab Director: Eder Herrera MD MCV (RBC) [Entitic vol] 89.7 fL Normal 82.6-102.9 M [facility] Comment on above: Performed By: #### P THNCA ####[address] [address] Lab Director: Jimenez Pruett MD#### URI, MG, RENP, CBC ####[address] [place] 29[address] Lab Director: Eder Herrera MD NRBC Automated 0.0 per 100 WBC Normal 0.0 [facility] Comment on above: Performed By: #### P THNCA ####[address] [address] Lab Director: Jimenez Pruett MD#### URI, MG, RENP, CBC ####[address] [place], [place] 8212783 Lab Director: Eder Herrera MD Platelet mean volume (Bld) [Entitic vol] 11.2 fL Normal 8.1-13.5 [facility] Comment on above: Performed By: #### P THNCA ####[address] [place], [place] [phone] Director: Jimenez Pruett MD#### URI, MG, RENP, CBC ####[address] [place], [place] 4968783 Lab Director: Eder Herrera MD Platelets (Bld) [#/Vol] 243 10*3/uL Normal 138-453 [facility] Comment on above: Performed By: #### P THNCA ####[address] [phone] Director: Jimenez Pruett MD#### URI, MG, RENP, CBC ####[address] [place] [address] Lab Director: Eder Herrera MD RBC (Bld) [#/Vol] 4.67 10*6/uL Normal 4.21-5.77 [facility] Comment on above: Performed By: #### P THNCA ####[address] [place], [place] [phone] Director: Jimenez Pruett MD#### URI, MG, RENP, CBC ####[address] [place], [place] 3336083 Lab Director: Eder Herrera MD WBC (Bld) [#/Vol] 6.0 10*3/uL Normal 3.5-11.3 [facility] Comment on above: Performed By: #### P THNCA ####[address] [place], [place] [phone] Director: Jimenez Pruett MD#### URI, MG, RENP, CBC ####[facility] [address] [place] [address] Lab Director: Eder Herrera MD Magnesiumon 04-01-2024 Magnesium [Mass/Vol] 1.6 mg/dL 1.6 - 2 .4 mg/dL [facility] Magnesium [Mass/Vol] 1.6 mg/dL Normal 1.6-2.4 [facility] Comment on above: Performed By: #### P THNCA ####[facility] [place], [place] 0[address]3908 Lab Director: Jimenez Pruett MD#### URI, MG, RENP, CBC ####[facility] [place] [address] Lab Director: Eder Herrera MD No Panel Informationon 04-01 Interpretation and review of laboratory results Abnormal [facility] PTH, Intacton 04-01-2024 Interpretation and review of laboratory results Abnormal [facility] Parathyrin.intact [Mass/Vol] 206.0 pg/mL High 15 - 65 pg/mL [facility] PTH, Intact 206.0 pg/mL High 15-65 [facility] Comment on above: Performed By: #### P THNCA ####[address] [place] [address] Lab Director: Jimenez Pruett MD#### URI, MG, RENP, CBC ####[facility] [address] [place] [address] Lab Director: Eder Herrera MD Renal Function Panelon 04-01 Albumin [Mass/Vol] 4.2 g/dL 3.5 - 5.2 g/dL [facility] Anion gap [Moles/Vol] 11 mmol/L 9 - 16 mmol/L [facility] Calcium [Mass/Vol] 11.0 mg/dL High 8.6 - 10. 4 mg/dL [facility] Chloride [Moles/Vol] 98 mmol/L 98 - 10 7 mmol/L [facility] CO2 [Moles/Vol] 27 mmol/L 20 - 31 mmol/L [facility] Creatinine [Mass/Vol] 1.6 mg/dL High 0.70 - 1.20 mg/dL [facility] Est, [place] Filt Rate 47 Low - PINF [facility] Comment on above: These results are [...] 195 mg/dL High 74 - 99 mg/dL [facility] Phosphate [Mass/Vol] 1.8 mg/dL Low 2.5 - 4 .5 mg/dL [facility] Potassium [Moles/Vol] 3.7 mmol/L 3.7 - 5.3 mmol/L [facility] Sodium [Moles/Vol] 136 mmol/L 136 - 145 mmol/L [facility] Urea nitrogen [Mass/Vol] 36 mg/dL High 8 - 23 mg/dL [facility] Urea nitrogen/Creatinine [Mass ratio] 23 mg/mg High 9 - 20 [facility] Albumin [Mass/Vol] 4.2 g/dL Normal 3.5-5.2 [facility] Comment on above: Performed By: #### P THNCA ####[facility] [address] [place] [address] Lab Director: Jimenez Pruett MD#### GEORGINA, MG, VALARIE, CBC ####[facility] [address] [place] [address] Lab Director: Eder Herrera MD Anion gap [Moles/Vol] 11 mmol/L Normal 9-[address] [facility] Comment on above: Performed By: #### P THNCA ####[address] [address] Lab Director: Jimenez Pruett MD#### URI, MG, RENP, CBC ####[address] , [place] 1503683 Lab Director: Eder Herrera MD BUN/CRE Ratio 23 High 9-20 [facility] Comment on above: Performed By: #### P THNCA ####[address] [phone] Director: Jimenez Pruett MD#### URI, MG, RENP, CBC ####[address] [place] [address] Lab Director: Eder Herrera MD Calcium [Mass/Vol] 11.0 mg/dL High 8.6-10.4 [facility] Comment on above: Performed By: #### P THNCA ####[address] [address] Lab Director: Jimenez Pruett MD#### URI, MG, RENP, CBC ####[address] [place] [address] Lab Director: Eder Herrera MD Chloride [Moles/Vol] 98 mmol/L Normal 98-107 [facility] Comment on above: Performed By: #### P THNCA ####[address] [phone] Director: Jimenez Pruett MD#### URI, MG, RENP, CBC ####[address] [place], [place] 2781783 Lab Director: Eder Herrera MD CO2 [Moles/Vol] 27 mmol/L Normal 20-31 [facility] Comment on above: Performed By: #### P THNCA ####[facility] [address] [place] [address] Lab Director: Jimenez Pruett MD#### URI, MG, RENP, CBC ####[address] [place], [place] 1980383 Lab Director: Eder Herrera MD Creatinine [Mass/Vol] 1.6 mg/dL High 0.70-1.[address] [facility] Comment on above: Performed By: #### P THNCA ####[facility] [address] [place] [address] Lab Director: Jimenez Pruett MD#### URI, MG, RENP, CBC ####[address] [place], [place] 2083583 Lab Director: Eder Herrera MD GFR/1.73 sq M.predicted among non-blacks MDRD (S/P/Bld) [Vol rate/Area] 47 mL/min/{1.73_m2} Low >60 [facility] Comment on above: Result Comment: Thes [...] tubular secretion. Performed By: #### P THNCA ####[facility] [address] [place] [address] Lab Director: Jimenez Pruett MD#### URI, MG, RENP, CBC ####[address] [place], [place] [phone] Lab Director: Eder Herrera MD Glucose [Mass/Vol] 195 mg/dL High 74-99 [facility] Comment on above: Performed By: #### P THNCA ####[address] [place] [address] Lab Director: Jimenez Pruett MD#### URI, MG, RENP, CBC ####[address] [place], [place] 3905183 Lab Director: Eder Herrera MD Phosphorus, Inorg. 1.8 mg/dL Low 2.5-4.5 [facility] Comment on above: Performed By: #### P THNCA ####[address] [address] Lab Director: Jimenez Pruett MD#### URI, MG, RENP, CBC ####[address] [place], [place] 8213483 Lab Director: Eder Herrera MD Potassium [Moles/Vol] 3.7 mmol/L Normal 3.7-5.[address] [facility] Comment on above: Performed By: #### P THNCA ####[address] [address] Lab Director: Jimenez Pruett MD#### URI, MG, RENP, CBC ####[address] [place], [place] 4465783 Lab Director: Eder Herrera MD Sodium [Moles/Vol] 136 mmol/L Normal 136-145 [facility] Comment on above: Performed By: #### P THNCA ####[address] [address] Lab Director: Jimenez Pruett MD#### URI, MG, RENP, CBC ####[address] [place], [place] 2064683 Lab Director: Eder Herrera MD Urea nitrogen [Mass/Vol] 36 mg/dL High 8-23 [facility] Comment on above: Performed By: #### P THNCA ####[facility] [address] [place] [address] Lab Director: Jimenez Pruett MD#### URI, MG, RENP, CBC ####[address] [place], [place] [id number] lab Director: Eder Herrera MD Uric Acidon 04-01-2024 Urate [Mass/Vol] 7.6 mg/dL High 3.4 - 7.0 mg/dL [facility] Urate [Mass/Vol] 7.6 mg/dL High 3.4-7.0 [facility] Comment on above: Performed By: #### P THNCA ####[facility] [place] [address] lab Director: Jimenez Pruett MD#### URI, MG, RENP, CBC ####[address] [place] [address] lab Director: Eder Herrera MD Basic Metabolic Panelon 02-23 Anion gap [Moles/Vol] 9 mmol/L 9 - 16 mmol/L [facility] Calcium [Mass/Vol] 10.5 mg/dL High 8.6 - 10. 4 mg/dL [facility] Chloride [Moles/Vol] 106 mmol/L 98 - 10 7 mmol/L [facility] CO2 [Moles/Vol] 24 mmol/L 20 - 31 mmol/L [facility] Creatinine [Mass/Vol] 1.4 mg/dL High 0.70 - 1.20 mg/dL [facility] Est, Glom Filt Rate 54 Low - PINF [facility] Comment on above: These results are [...] 106 mg/dL High 74 - 99 mg/dL [facility] Potassium [Moles/Vol] 4.9 mmol/L 3.7 - 5.3 mmol/L [facility] Comment on above: Specimen hemolysis h as exceeded the interference as defined by Cyndi. Value may be falsely increased. Suggest recollection if clinically indicated. Sodium [Moles/Vol] 139 mmol/L 136 - 145 mmol/L [facility] Urea nitrogen [Mass/Vol] 24 mg/dL High 8 - 23 mg/dL [facility] Urea nitrogen/Creatinine [Mass ratio] 17 mg/mg 9 - [facility] Basic Metabolic Profon 03-15 Anion gap [Moles/Vol] 9 mmol/L Normal - [facility] Comment on above: Performed By: #### C BC, BMP, BNP ####[address] [place] [address] Lab Director: Eder Herrera MD BUN/CRE Ratio 17 Normal - [facility] Comment on above: Performed By: #### C BC, BMP, BNP ####[address] , [place] [id number] lab Director: Eder Herrera MD Calcium [Mass/Vol] 10.5 mg/dL High 8.6-10.4 [facility] Comment on above: Performed By: #### C BC, BMP, BNP ####[address] , [place] [id number] lab Director: Eder Herrera MD Chloride [Moles/Vol] 106 mmol/L Normal 98-107 [facility] Comment on above: Performed By: #### C BC, BMP, BNP ####[address] [place] [address] lab Director: Eder Herrera MD CO2 [Moles/Vol] 24 mmol/L Normal 20- [facility] Comment on above: Performed By: #### C BC, BMP, BNP ####[address] [place], [place] [address] lab Director: Eder Herrera MD Creatinine [Mass/Vol] 1.4 mg/dL High 0.70-1.[address] [facility] Comment on above: Performed By: #### C BC, BMP, BNP ####[address] [place], [place] [id number] lab Director: Eder Herrera MD GFR/1.73 sq M.predicted among non-blacks MDRD (S/P/Bld) [Vol rate/Area] 54 mL/min/{1.73_m2} Low >60 [facility] Comment on above: Result Comment: Thes [...] Performed By: #### C KILLIAN BMP, BNP ####[address] [place] [address] lab Director: Eder Herrera MD Glucose [Mass/Vol] 106 mg/dL High 74-99 [facility] Comment on above: Performed By: #### C BC BMP, BNP ####[address] [place], [place] [address] lab Director: Eder Herrera MD Potassium [Moles/Vol] 4.9 mmol/L Normal 3.7-5.[address] [facility] Comment on above: Result Comment: Spec imen hemolysis has exceeded the interference as defined by Cyndi. Value may be falsely increased. Suggest recollection if clinically indicated. Performed By: #### C BC, BMP, BNP ####[address] [place] [address] lab Director: Eder Herrera MD Sodium [Moles/Vol] 139 mmol/L Normal 136-145 [facility] Comment on above: Performed By: #### C BC, BMP, BNP ####[facility] [place] , [place] [id number] lab Director: Eder Herrera MD Urea nitrogen [Mass/Vol] 24 mg/dL High 8-23 [facility] Comment on above: Performed By: #### C BC, BMP, BNP ####[facility] [place] , [place] [id number] lab Director: Eder Herrera MD Brain Natri. Peptideon 03-15 Natriuretic peptide B (Bld) [Mass/Vol] 422 pg/mL High 0-125 [facility] Comment on above: Performed By: #### C KILLIAN, BMP, BNP ####[address] , [place] [id number] Lab Director: Eder Herrera MD Brain Natriuretic Peptideon 03-15-2024 Natriuretic peptide B (Bld) [Mass/Vol] 422 pg/mL High 0 - 125 pg/mL [facility] CBCon 03-15-2024 Erythrocyte distribution width (RBC) [Ratio] 13.2 % 11.8 - 14.4 % [facility] Hematocrit (Bld) [Volume fraction] 41.4 % 40.7 - 50.3 % [facility] Hemoglobin (Bld) [Mass/Vol] 13.1 g/dL 13.0 - 17.0 g/dL [facility] MCH (RBC) [Entitic mass] 29.2 pg 25.2 - 33.5 pg [facility] MCHC (RBC) [Mass/Vol] 31.6 g/dL 28.4 - 34.8 g/dL [facility] MCV (RBC) [Entitic vol] 92.2 fL 82.6 - 102.9 fL [facility] Nucleated RBC/100 WBC (Bld) [Ratio] 0.0 % 0.0 per 100 WBC [facility] Platelet mean volume (Bld) [Entitic vol] 10.9 fL 8.1 - 13.5 fL [facility] Platelets (Bld) [#/Vol] 268 10*3/uL [facility] RBC (Bld) [#/Vol] 4.49 10*6/uL 4.21 - 5.7 7 m/uL [facility] WBC other (Bld) [#/Vol] 5.0 B on [facility] Erythrocyte distribution width (RBC) [Ratio] 13.2 % Normal 11.8-14.4 [facility] Comment on above: Performed By: #### C BC, BMP, BNP ####[address] [place] [address] lab Director: Eder Herrera MD Hematocrit (Bld) [Volume fraction] 41.4 % Normal 40.7-50.3 [facility] Comment on above: Performed By: #### C BC BMP, BNP ####[address] [place] [address] Lab Director: Eder Herrera MD Hemoglobin (Bld) [Mass/Vol] 13.1 g/dL Normal 13.0-17.0 [facility] Comment on above: Performed By: #### C BC, BMP, BNP ####[address] [place] [address] lab Director: Eder Herrera MD MCH (RBC) [Entitic mass] 29.2 pg Normal 25.2-33.5 [facility] Comment on above: Performed By: #### C BC, BMP, BNP ####[address] [place] [address] lab Director: Eder Herrera MD MCHC (RBC) [Mass/Vol] 31.6 g/dL Normal 28.4-34.[address] [facility] Comment on above: Performed By: #### C BC, BMP, BNP ####[address] [place] [address] Lab Director: Eder Herrera MD MCV (RBC) [Entitic vol] 92.2 fL Normal 82.6-102.9 [facility] Comment on above: Performed By: #### C BC, BMP, BNP ####[address] [place] [address] Lab Director: Eder Herrera MD NRBC Automated 0.0 per 100 WBC Normal 0.0 [facility] Comment on above: Performed By: #### C BC, BMP, BNP ####[address] [place] [address] Lab Director: Eder Herrera MD Platelet mean volume (Bld) [Entitic vol] 10.9 fL Normal 8.1-13.5 [facility] Comment on above: Performed By: #### C BC, BMP, BNP ####[address] [place] [address] Lab Director: Eder Herrera MD Platelets (Bld) [#/Vol] 268 10*3/uL Normal 138-453 [facility] Comment on above: Performed By: #### C BC, BMP, BNP ####[address] [place] [address] Lab Director: Eder Herrera MD RBC (Bld) [#/Vol] 4.49 10*6/uL Normal 4.21-5.77 [facility] Comment on above: Performed By: #### C BC, BMP, BNP ####[address] [place] [address] Lab Director: Eder Herrera MD WBC (Bld) [#/Vol] 5.0 10*3/uL Normal 3.5-11.3 [facility] Comment on above: Performed By: #### C BC, BMP, BNP ####[address] [place] [address] lab Director: Eder Herrera MD No Panel Informationon 03-15 Interpretation and review of laboratory results Abnormal [facility] Bon [facility] Trice 03-08-2024 ACT 274 sec High 79-149 [facility] ACT 253 sec High 79-149 [facility] ACT 174 sec High 79-149 [facility] Glucose, Whole Bloodon 03-08 Glucose [Mass/Vol] 148 mg/dL High 74-100 [facility] Glucose [Mass/Vol] 138 mg/dL High 74-100 [facility] CBC with Auto Differentialon 02-28-2024 Basophils (Bld) [#/Vol] 0.04 10*3/uL [facility] Basophils/100 WBC (Bld) 1 % 0 - 2 % B ON [facility] Eosinophils (Bld) [#/Vol] 0.39 10*3/uL [facility] Eosinophils/100 WBC (Bld) 5 % High 1 - 4 % [facility] Erythrocyte distribution width (RBC) [Ratio] 12.3 % 11.8 - 14.4 % [facility] Hematocrit (Bld) [Volume fraction] 37.1 % Low 40.7 - 50.3 % [facility] Hemoglobin (Bld) [Mass/Vol] 12.7 g/dL Low 13.0 - 17.0 g/dL [facility] Immature granulocytes (Bld) [#/Vol] [facility] Immature granulocytes/100 WBC (Bld) 0 % 0 [facility] Interpretation and review of laboratory results Abnormal [facility] Lymphocytes/100 WBC (Bld) 32 % 24 - 43 % [facility] Lymphocytes/100 WBC (Bld) 2.31 % [facility] MCH (RBC) [Entitic mass] 29.5 pg 25.2 - 33.5 pg [facility] MCHC (RBC) [Mass/Vol] 34.2 g/dL 28.4 - 34.8 g/dL [facility] MCV (RBC) [Entitic vol] 86.3 fL 82.6 - 102.9 fL [facility] Monocytes/100 WBC (Bld) 10 % 3 - 12 % B ON [facility] Monocytes/100 WBC (Bld) 0.76 % B ON [facility] Neutrophils/100 WBC (Bld) 52 % 36 - 65 % [facility] Nucleated RBC/100 WBC (Bld) [Ratio] 0.0 % 0.0 per 100 WBC [facility] Platelet mean volume (Bld) [Entitic vol] 10.9 fL 8.1 - 13.5 fL [facility] Platelets (Bld) [#/Vol] 248 10*3/uL [facility] RBC (Bld) [#/Vol] 4.30 10*6/uL 4.21 - 5.7 7 m/uL [facility] Segmented neutrophils/100 WBC (Bld) 3.78 % [facility] WBC other (Bld) [#/Vol] 7.3 B ON [facility] CBC with Diffon 02-28-2024 Abs. Basophil 0.04 k/uL Normal 0.00-0.20 [facility] Comment on above: Performed By: #### C CHLOÉ PECK, SUSANAE ####[address] [place] [id number] Lab Director: Eder Herrera MD Abs.Imm.Granulocyte <0.03 Normal 0.00-0.30 [facility] Comment on above: Performed By: #### C CHLOÉ PECK, DIME ####[address] [place], [place] [address] Lab Director: Eder Herrera MD Abs.Neutrophil (Seg) 3.78 k/uL Normal 1.50-8.10 [facility] Comment on above: Performed By: #### C CHLOÉ PECK, DIME ####[address] , [place] [id number] Lab Director: Eder Herrera MD Basophils/100 WBC (Bld) 1 % Normal 0-2 M [facility] Comment on above: Performed By: #### C DP CP, DIME ####[address] [place] [address] Lab Director: Eder Herrera MD Eosinophils (Bld) [#/Vol] 0.39 10*3/uL Normal 0.00-0.44 [facility] Comment on above: Performed By: #### C DP CP, DIME ####[address] , [facility]83 Lab Director: Eder Herrera MD Eosinophils/100 WBC (Bld) 5 % High 1-4 [facility] Comment on above: Performed By: #### C CISCO CP, DIME ####[address] , [facility]83 Lab Director: Eder Herrera MD Erythrocyte distribution width (RBC) [Ratio] 12.3 % Normal 11.8-14.4 [facility] Comment on above: Performed By: #### C CISCO CP, DIME ####[address] , [place] [address] Lab Director: Eder Herrera MD Hematocrit (Bld) [Volume fraction] 37.1 % Low 40.7-50.3 [facility] Comment on above: Performed By: #### C CISCO CP, DIME ####[address] , [facility]83 Lab Director: Eder Herrera MD Hemoglobin (Bld) [Mass/Vol] 12.7 g/dL Low 13.0-17.0 [facility] Comment on above: Performed By: #### C DP CP, DIME ####[address] , [place] [phone] Lab Director: Eder Herrera MD Immature granulocytes/100 WBC (Bld) 0 % Normal 0 [facility] Comment on above: Performed By: #### C DP CP, DIME ####[address] , [place] [phone] Director: Eder Herrera MD Lymphocytes (Bld) [#/Vol] 2.31 10*3/uL Normal 1.10-3.70 [facility] Comment on above: Performed By: #### C CHLOÉ PECK, DIME ####[address] , [place] [phone] Director: Eder Herrera MD Lymphocytes/100 WBC (Bld) 32 % Normal 24-43 [facility] Comment on above: Performed By: #### C CHLOÉ PECK, DIME ####[address] , [place] [phone] Director: Eder Herrera MD MCH (RBC) [Entitic mass] 29.5 pg Normal 25.2-33.5 [facility] Comment on above: Performed By: #### C CHLOÉ PECK, DIME ####[address] , [place] [address])[phone] Director: Eder Herrera MD MCHC (RBC) [Mass/Vol] 34.2 g/dL Normal 28.4-34.[address] [facility] Comment on above: Performed By: #### C CHLOÉ PECK, DIME ####[address] , [place] [address])[phone] Director: Eder Herrera MD MCV (RBC) [Entitic vol] 86.3 fL Normal 82.6-102.9 [facility] Comment on above: Performed By: #### C CHLOÉ PECK, DIME ####[address] [place] [address] Lab Director: Eder Herrera MD Monocytes (Bld) [#/Vol] 0.76 10*3/uL Normal 0.10-1.20 [facility] Comment on above: Performed By: #### C DP, CP, DIME ####[address] [place] [address] Lab Director: Eder Herrera MD Monocytes/100 WBC (Bld) 10 % Normal 3-12 [facility] Comment on above: Performed By: #### C DP, CP, DIME ####[address] , [place] [address])[phone] Director: Eder Herrera MD Neutrophil (Seg) 52 % Normal 36-65 [facility] Comment on above: Performed By: #### C DP CP, DIME ####[address] , [facility]83 Lab Director: Eder Herrera MD NRBC Automated 0.0 per 100 WBC Normal 0.0 [facility] Comment on above: Performed By: #### C DP CP, DIME ####[address] , [phone] Director: Eder Herrera MD Platelet mean volume (Bld) [Entitic vol] 10.9 fL Normal 8.1-13.5 [facility] Comment on above: Performed By: #### C DP CP, DIME ####[address] , [place] [address])[phone] Director: Eder Herrera MD Platelets (Bld) [#/Vol] 248 10*3/uL Normal 138-453 [facility] Comment on above: Performed By: #### C DP, CP, DIME ####[address] , [place] [phone] Director: Eder Herrera MD RBC (Bld) [#/Vol] 4.30 10*6/uL Normal 4.21-5.77 [facility] Comment on above: Performed By: #### C DP, CP, DIME ####[facility] [place] [address] lab Director: Eder Herrera MD WBC (Bld) [#/Vol] 7.3 10*3/uL Normal 3.5-11.3 [facility] Comment on above: Performed By: #### C DP, CHLOÉ, SUSANAE ####[facility] [place] [address] lab Director: Eder Herrera MD [facility]-2024 Albumin [Mass/Vol] 3.6 g/dL 3.5 - 5.2 g/dL [facility] Albumin/Globulin [Mass ratio] 1.3 {ratio} 1.0 - 2.5 [facility] ALP [Catalytic activity/Vol] 90 U/L 40 - 129 U/L [facility] ALT [Catalytic activity/Vol] 21 U/L 10 - 50 U/L [facility] Anion gap [Moles/Vol] 13 mmol/L 9 - 16 mmol/L [facility] AST [Catalytic activity/Vol] 22 U/L 10 - 50 U/L [facility] Bilirubin [Mass/Vol] 0.3 mg/dL 0.00 - 1.20 mg/dL [facility] Calcium [Mass/Vol] 9.1 mg/dL 8.6 - 10. 4 mg/dL [facility] Chloride [Moles/Vol] 99 mmol/L 98 - 10 7 mmol/L [facility] CO2 [Moles/Vol] 23 mmol/L 20 - 31 mmol/L [facility] Creatinine [Mass/Vol] 1.8 mg/dL High 0.70 - 1.20 mg/dL [facility] Est, Glom Filt Rate 41 Low - PINF [facility] Comment on above: These results [...] 118 mg/dL High 74 - 99 mg/dL [facility] Interpretation and review of laboratory results Abnormal [facility] Potassium [Moles/Vol] 4.1 mmol/L 3.7 - 5.3 mmol/L [facility] Protein [Mass/Vol] 6.2 g/dL Low 6.6 - 8.7 g/dL [facility] Sodium [Moles/Vol] 135 mmol/L Low 136 - 145 mmol/L [facility] Urea nitrogen [Mass/Vol] 55 mg/dL High 8 - 23 mg/dL [facility] Urea nitrogen/Creatinine [Mass ratio] 31 mg/mg High 9 - 20 [facility] Comp Metabolic Profon 2023 Albumin [Mass/Vol] 3.6 g/dL Normal 3.5-5.2 [facility] Comment on above: Performed By: #### C CHLOÉ PECK, DIME ####[address] , [place] [id number] Lab Director: Eder Herrera MD Albumin/Glob Ratio 1.3 Normal 1.0-2.5 [facility] Comment on above: Performed By: #### C CHLOÉ PECK, DIME ####[address] , [place] [phone] Lab Director: Eder Herrera MD Alkaline Phos 90 U/L Normal 40-129 [facility] Comment on above: Performed By: #### C CHLOÉ PECK, DIME ####[facility] [place] , [place] [id number] Lab Director: Eder Herrera MD ALT [Catalytic activity/Vol] 21 U/L Normal 10-50 [facility] Comment on above: Performed By: #### C CHLOÉ PECK, DIME ####[facility] [place] , [place] 0763[address] Lab Director: Eder Herrera MD Anion gap [Moles/Vol] 13 mmol/L Normal 9-[address] [facility] Comment on above: Performed By: #### C CHLOÉ PECK, DIME ####[address] [place] [address] Lab Director: Eder Herrera MD AST [Catalytic activity/Vol] 22 U/L Normal 10-50 [facility] Comment on above: Performed By: #### C CHLOÉ PECK, DIME ####[address] [place] [address] Lab Director: Eder Herrera MD Bilirubin [Mass/Vol] 0.3 mg/dL Normal 0.00-1.20 [facility] Comment on above: Performed By: #### C CHLOÉ PECK, DIME ####[address] [place] [address] Lab Director: Eder Herrera MD BUN/CRE Ratio 31 High 9-20 [facility] Comment on above: Performed By: #### C CHLOÉ PECK, DIME ####[address] [place] [address] Lab Director: Eder Herrera MD Calcium [Mass/Vol] 9.1 mg/dL Normal 8.6-10.4 [facility] Comment on above: Performed By: #### C CHLOÉ PECK, DIME ####[address] [place] [address] Lab Director: Eder Herrera MD Chloride [Moles/Vol] 99 mmol/L Normal 98-107 [facility] Comment on above: Performed By: #### C CHLOÉ PECK, DIME ####[address] , [place] 115[address]483 Lab Director: Eder Herrera MD CO2 [Moles/Vol] 23 mmol/L Normal 20-31 [facility] Comment on above: Performed By: #### C CHLOÉ PECK, DIME ####[address] [place] [address] Lab Director: Eder Herrera MD Creatinine [Mass/Vol] 1.8 mg/dL High 0.70-1.[address] [facility] Comment on above: Performed By: #### C CHLOÉ PECK, DIME ####[address] , [place] [phone] Lab Director: Eder Herrera MD GFR/1.73 sq M.predicted among non-blacks MDRD (S/P/Bld) [Vol rate/Area] 41 mL/min/{1.73_m2} Low >60 [facility] Comment on above: Result Comment: Thes [...] Performed By: #### C CHLOÉ PECK, DIME ####[address] , [place] [phone] Lab Director: Eder Herrera MD Glucose [Mass/Vol] 118 mg/dL High 74-99 [facility] Comment on above: Performed By: #### C CHLOÉ PECK, DIME ####[address] [place] [address] Lab Director: Eder Herrera MD Potassium [Moles/Vol] 4.1 mmol/L Normal 3.7-5.[address] [facility] Comment on above: Performed By: #### C CHLOÉ PECK, DIME ####[address] , [place] [id number] Lab Director: Eder Herrera MD Protein [Mass/Vol] 6.2 g/dL Low 6.6-8.7 [facility] Comment on above: Performed By: #### C DP CP, DIME ####[facility] [place] [address] lab Director: Eder Herrera MD Sodium [Moles/Vol] 135 mmol/L Low 136-145 [facility] Comment on above: Performed By: #### C DP CP, DIME ####[facility] [place] [address] lab Director: Eder Herrera MD Urea nitrogen [Mass/Vol] 55 mg/dL High 8-23 [facility] Comment on above: Performed By: #### C CHLOÉ PECK, DIME ####[address] [place] [address] lab Director: Eder Herrera MD D-Dimer Teston 02-28-2024 D-Dimer Test 0.43 ug/mL FEU Normal 0.00-0.59 [facility] Comment on above: Result Comment: When combined [...] Performed By: #### C DP, CHLOÉ, CATHY ####[facility] [place] [address] Lab Director: Eder Herrera MD D-Dimer, Quantitativeon 10- Fibrin D-dimer FEU (PPP) [Mass/Vol] 0.43 [facility] Comment on above: When combined with [...] more prevalent in patients with distal DVT. [facility] Basic Metab w/rfx MGon 02-26 Anion gap [Moles/Vol] 11 mmol/L Normal 9-[address] [facility] Comment on above: Performed By: #### B MPX, CDP ####[facility] [place] [address] lab Director: Eder Herrera MD BUN/CRE Ratio 27 High 9-20 [facility] Comment on above: Performed By: #### B MPX, CDP ####[facility] [place], [place] [address] Lab Director: Eder Herrera MD Calcium [Mass/Vol] 8.8 mg/dL Normal 8.6-10.4 [facility] Comment on above: Performed By: #### B MPX, CDP ####[address] , [place] [phone] Lab Director: Eder Herrera MD Chloride [Moles/Vol] 99 mmol/L Normal 98-107 [facility] Comment on above: Performed By: #### B MPX, CDP ####[address] , [place] 2453583 Lab Director: Eder Herrera MD CO2 [Moles/Vol] 25 mmol/L Normal 20-31 [facility] Comment on above: Performed By: #### B MPX, CDP ####[address] , [place] [id number] Lab Director: Eder Herrera MD Creatinine [Mass/Vol] 2.1 mg/dL High 0.70-1.[address] [facility] Comment on above: Performed By: #### B MPX, CDP ####[address] , [place] [id number] Lab Director: Eder Herrera MD GFR/1.73 sq M.predicted among non-blacks MDRD (S/P/Bld) [Vol rate/Area] 35 mL/min/{1.73_m2} Low >60 [facility] Comment on above: Result Comment: Thes [...] secretion. Performed By: #### B MPX, CDP ####[address] [place] [address] Lab Director: Eder Herrera MD Glucose [Mass/Vol] 221 mg/dL High 74-99 [facility] Comment on above: Performed By: #### B MPX, CDP ####[facility] [place] , [place] 0208483 lab Director: Eder Herrera MD Potassium [Moles/Vol] 4.0 mmol/L Normal 3.7-5.[address] [facility] Comment on above: Performed By: #### B MPX, CDP ####[facility] [place] , [place] 1280483 lab Director: Eder Herrera MD Sodium [Moles/Vol] 135 mmol/L Low 136-145 [facility] Comment on above: Performed By: #### B MPX, CDP ####[facility] [place] , [place] 9114683 lab Director: Eder Herrera MD Urea nitrogen [Mass/Vol] 57 mg/dL High 8-23 [facility] Comment on above: Performed By: #### B MPX, CDP ####[facility] [place] , [place] 0283883 lab Director: Eder Herrera MD Basic Metabolic Panel w/ Ref willam to MGon 02-27-2024 Anion gap [Moles/Vol] 11 mmol/L 9 - 16 mmol/L [facility] Calcium [Mass/Vol] 8.8 mg/dL 8.6 - 10. 4 mg/dL [facility] Chloride [Moles/Vol] 99 mmol/L 98 - 10 7 mmol/L [facility] CO2 [Moles/Vol] 25 mmol/L 20 - 31 mmol/L [facility] Creatinine [Mass/Vol] 2.1 mg/dL High 0.70 - 1.20 mg/dL [facility] Est, Glom Filt Rate 35 Low - PINF [facility] Comment on above: These results [...] 221 mg/dL High 74 - 99 mg/dL [facility] Interpretation and review of laboratory results Abnormal [facility] Potassium [Moles/Vol] 4.0 mmol/L 3.7 - 5.3 mmol/L [facility] Sodium [Moles/Vol] 135 mmol/L Low 136 - 145 mmol/L [facility] Urea nitrogen [Mass/Vol] 57 mg/dL High 8 - 23 mg/dL [facility] Urea nitrogen/Creatinine [Mass ratio] 27 mg/mg High 9 - 20 [facility] CBC auto differentialon 10-0 Basophils (Bld) [#/Vol] 0.04 10*3/uL [facility] Basophils/100 WBC (Bld) 1 % 0 - 2 % B [facility] Eosinophils (Bld) [#/Vol] 0.20 10*3/uL [facility] Eosinophils/100 WBC (Bld) 3 % 1 - 4 % [facility] Erythrocyte distribution width (RBC) [Ratio] 12.5 % 11.8 - 14.4 % [facility] Hematocrit (Bld) [Volume fraction] 36.4 % Low 40.7 - 50.3 % [facility] Hemoglobin (Bld) [Mass/Vol] 12.0 g/dL Low 13.0 - 17.0 g/dL [facility] Immature granulocytes (Bld) [#/Vol] [facility] Immature granulocytes/100 WBC (Bld) 0 % 0 [facility] Interpretation and review of laboratory results Abnormal [facility] Lymphocytes/100 WBC (Bld) 33 % 24 - 43 % [facility] Lymphocytes/100 WBC (Bld) 2.48 % [facility] MCH (RBC) [Entitic mass] 29.1 pg 25.2 - 33.5 pg [facility] MCHC (RBC) [Mass/Vol] 33.0 g/dL 28.4 - 34.8 g/dL [facility] MCV (RBC) [Entitic vol] 88.1 fL 82.6 - 102.9 fL [facility] Monocytes/100 WBC (Bld) 11 % 3 - 12 % B ON [facility] Monocytes/100 WBC (Bld) 0.83 % B ON [facility] Neutrophils/100 WBC (Bld) 52 % 36 - 65 % [facility] Nucleated RBC/100 WBC (Bld) [Ratio] 0.0 % 0.0 per 100 WBC [facility] Platelet mean volume (Bld) [Entitic vol] 11.1 fL 8.1 - 13.5 fL [facility] Platelets (Bld) [#/Vol] 233 10*3/uL [facility] RBC (Bld) [#/Vol] 4.13 10*6/uL Low 4.21 - 5.7 7 m/uL [facility] Segmented neutrophils/100 WBC (Bld) 3.95 % [facility] WBC other (Bld) [#/Vol] 7.5 B ON [facility] CBC with Diffon 02-27-2024 Abs. Basophil 0.04 k/uL Normal 0.00-0.20 [facility] Comment on above: Performed By: #### B MPX, CDP ####[address] , [place] [id number] lab Director: Eder Herrera MD Abs.Imm.Granulocyte <0.03 Normal 0.00-0.30 [facility] Comment on above: Performed By: #### B MPX, CDP ####[address] [place] [address] lab Director: Eder Herrera MD Abs.Neutrophil (Seg) 3.95 k/uL Normal 1.50-8.10 [facility] Comment on above: Performed By: #### B MPX, CDP ####[address] , [place] [phone] Lab Director: Eder Herrera MD Basophils/100 WBC (Bld) 1 % Normal 0-[address] [facility] Comment on above: Performed By: #### B MPX, CDP ####[address] , [place] [phone] lab Director: Eder Herrera MD Eosinophils (Bld) [#/Vol] 0.20 10*3/uL Normal 0.00-0.44 [facility] Comment on above: Performed By: #### B MPX, CDP ####[address] , [place] [phone] lab Director: Eder Herrera MD Eosinophils/100 WBC (Bld) 3 % Normal 1-4 [facility] Comment on above: Performed By: #### B MPX, CDP ####[address] , [place] 8197083 lab Director: Eder Herrera MD Erythrocyte distribution width (RBC) [Ratio] 12.5 % Normal 11.8-14.4 [facility] Comment on above: Performed By: #### B MPX, CDP ####[address] , [place] 9281983 Lab Director: Eder Herrera MD Hematocrit (Bld) [Volume fraction] 36.4 % Low 40.7-50.3 [facility] Comment on above: Performed By: #### B MPX, CDP ####[address] [place] [address] Lab Director: Eder Herrera MD Hemoglobin (Bld) [Mass/Vol] 12.0 g/dL Low 13.0-17.0 [facility] Comment on above: Performed By: #### B MPX, CDP ####[address] , [place] [phone] Lab Director: Eder Herrera MD Immature granulocytes/100 WBC (Bld) 0 % Normal 0 [facility] Comment on above: Performed By: #### B MPX, CDP ####[address] , [place] [phone] Lab Director: Eder Herrera MD Lymphocytes (Bld) [#/Vol] 2.48 10*3/uL Normal 1.10-3.70 [facility] Comment on above: Performed By: #### B MPX, CDP ####[address] , [place] [phone] Lab Director: Eder Herrera MD Lymphocytes/100 WBC (Bld) 33 % Normal 24-43 [facility] Comment on above: Performed By: #### B MPX, CDP ####[address] [place] [address] Lab Director: Eder Herrera MD MCH (RBC) [Entitic mass] 29.1 pg Normal 25.2-33.5 [facility] Comment on above: Performed By: #### B MPX, CDP ####[address] , [place] [phone] Lab Director: Eder Herrera MD MCHC (RBC) [Mass/Vol] 33.0 g/dL Normal 28.4-34.[address] [facility] Comment on above: Performed By: #### B MPX, CDP ####[address] , [place] 5942783 Lab Director: Eder Herrera MD MCV (RBC) [Entitic vol] 88.1 fL Normal 82.6-102.9 M [facility] Comment on above: Performed By: #### B MPX, CDP ####[address] , [place] 4443383 Lab Director: Eder Herrera MD Monocytes (Bld) [#/Vol] 0.83 10*3/uL Normal 0.10-1.20 [facility] Comment on above: Performed By: #### B MPX, CDP ####[address] , [place] [phone] Lab Director: Eder Herrera MD Monocytes/100 WBC (Bld) 11 % Normal 3-12 M [facility] Comment on above: Performed By: #### B MPX, CDP ####[address] [place] [address] Lab Director: Eder Herrera MD Neutrophil (Seg) 52 % Normal 36-65 [facility] Comment on above: Performed By: #### B MPX, CDP ####[address] , [place] [phone] Lab Director: Eder Herrera MD NRBC Automated 0.0 per 100 WBC Normal 0.0 [facility] Comment on above: Performed By: #### B MPX, CDP ####[address] , [place] [phone] Director: Eder Herrera MD Platelet mean volume (Bld) [Entitic vol] 11.1 fL Normal 8.1-13.5 [facility] Comment on above: Performed By: #### B MPX, CDP ####[address] , [place] [phone] Director: Eder eHrrera MD Platelets (Bld) [#/Vol] 233 10*3/uL Normal 138-453 [facility] Comment on above: Performed By: #### B MPX, CDP ####[address] , [place] 1684583 Lab Director: Eder Herrera MD RBC (Bld) [#/Vol] 4.13 10*6/uL Low 4.21-5.77 [facility] Comment on above: Performed By: #### B MPX, CDP ####[facility] , [place] 9593683 lab Director: Eder Herrera MD WBC (Bld) [#/Vol] 7.5 10*3/uL Normal 3.5-11.3 [facility] Comment on above: Performed By: #### B MPX, CDP ####[facility] , [place] [phone] lab Director: Eder Herrera MD Glucose, Whole Bloodon 02-26 Glucose [Mass/Vol] 223 mg/dL High 74 - 100 mg/dL [facility] Interpretation and review of laboratory results Abnormal [facility] Glucose [Mass/Vol] 223 mg/dL High 74-100 [facility] Glucose [Mass/Vol] 201 mg/dL High 74 - 100 mg/dL [facility] Interpretation and review of laboratory results Abnormal [facility] Glucose [Mass/Vol] 201 mg/dL High 74-100 [facility] Basic Metab w/rfx MGon 02-25 Anion gap [Moles/Vol] 11 mmol/L Normal 9-[address] [facility] Comment on above: Performed By: #### C DP, BMPX ####[address] , [place] 1026783 lab Director: Eder Herrera MD BUN/CRE Ratio 23 High 9-20 [facility] Comment on above: Performed By: #### C DP, BMPX ####[address] , [place] [phone] lab Director: Eder Herrera MD Calcium [Mass/Vol] 9.0 mg/dL Normal 8.6-10.4 [facility] Comment on above: Performed By: #### C DP, BMPX ####[address] [place] [address] Lab Director: Eder Herrera MD Chloride [Moles/Vol] 102 mmol/L Normal 98-107 [facility] Comment on above: Performed By: #### C DP, BMPX ####[facility] , [place] [phone] Lab Director: Eder Herrera MD CO2 [Moles/Vol] 27 mmol/L Normal 20-31 [facility] Comment on above: Performed By: #### C DP, BMPX ####[facility] , [place] [phone] Lab Director: Eder Herrera MD Creatinine [Mass/Vol] 2.1 mg/dL High 0.70-1.[address] [facility] Comment on above: Performed By: #### C DP, BMPX ####[facility] , [place] 4423683 Lab Director: Eder Herrera MD GFR/1.73 sq M.predicted among non-blacks MDRD (S/P/Bld) [Vol rate/Area] 36 mL/min/{1.73_m2} Low >60 [facility] Comment on above: Result Comment: Thes [...] secretion. Performed By: #### C DP, BMPX ####[facility] [place] [address] Lab Director: Eder Herrera MD Glucose [Mass/Vol] 189 mg/dL High 74-99 [facility] Comment on above: Performed By: #### C DP, BMPX ####[facility], [place] 5623[address] Lab Director: Eder Herrera MD Potassium [Moles/Vol] 3.8 mmol/L Normal 3.7-5.[address] [facility] Comment on above: Performed By: #### C DP, BMPX ####[facility] [phone] lab Director: Eder Herrera MD Sodium [Moles/Vol] 140 mmol/L Normal 136-145 [facility] Comment on above: Performed By: #### C DP, BMPX ####[facility] [phone] lab Director: Eder Herrera MD Urea nitrogen [Mass/Vol] 49 mg/dL High 8-23 [facility] Comment on above: Performed By: #### C DP, BMPX ####[address] , [place] 5014383 lab Director: Eder Herrera MD Basic Metabolic Panel w/ Ref willam to MGon 02-26-2024 Anion gap [Moles/Vol] 11 mmol/L 9 - 16 mmol/L [facility] Calcium [Mass/Vol] 9.0 mg/dL 8.6 - 10. 4 mg/dL [facility] Chloride [Moles/Vol] 102 mmol/L 98 - 10 7 mmol/L [facility] CO2 [Moles/Vol] 27 mmol/L 20 - 31 mmol/L [facility] Creatinine [Mass/Vol] 2.1 mg/dL High 0.70 - 1.20 mg/dL [facility] Est, Glom Filt Rate 36 Low - PINF [facility] Comment on above: These results [...] 189 mg/dL High 74 - 99 mg/dL [facility] Interpretation and review of laboratory results Abnormal [facility] Potassium [Moles/Vol] 3.8 mmol/L 3.7 - 5.3 mmol/L [facility] Sodium [Moles/Vol] 140 mmol/L 136 - 145 mmol/L [facility] Urea nitrogen [Mass/Vol] 49 mg/dL High 8 - 23 mg/dL [facility] Urea nitrogen/Creatinine [Mass ratio] 23 mg/mg High 9 - 20 [facility] CBC auto differentialon 10-0 Basophils (Bld) [#/Vol] 0.03 10*3/uL [facility] Basophils/100 WBC (Bld) 0 % 0 - 2 % B [facility] Eosinophils (Bld) [#/Vol] 0.12 10*3/uL [facility] Eosinophils/100 WBC (Bld) 2 % 1 - 4 % [facility] Erythrocyte distribution width (RBC) [Ratio] 12.6 % 11.8 - 14.4 % [facility] Hematocrit (Bld) [Volume fraction] 37.5 % Low 40.7 - 50.3 % [facility] Hemoglobin (Bld) [Mass/Vol] 12.3 g/dL Low 13.0 - 17.0 g/dL [facility] Immature granulocytes (Bld) [#/Vol] [facility] Immature granulocytes/100 WBC (Bld) 0 % 0 [facility] Interpretation and review of laboratory results Abnormal [facility] Lymphocytes/100 WBC (Bld) 32 % 24 - 43 % [facility] Lymphocytes/100 WBC (Bld) 2.38 % [facility] MCH (RBC) [Entitic mass] 28.8 pg 25.2 - 33.5 pg [facility] MCHC (RBC) [Mass/Vol] 32.8 g/dL 28.4 - 34.8 g/dL [facility] MCV (RBC) [Entitic vol] 87.8 fL 82.6 - 102.9 fL [facility] Monocytes/100 WBC (Bld) 14 % High 3 - 12 % B ON [facility] Monocytes/100 WBC (Bld) 1.02 % B ON [facility] Neutrophils/100 WBC (Bld) 52 % 36 - 65 % [facility] Nucleated RBC/100 WBC (Bld) [Ratio] 0.0 % 0.0 per 100 WBC [facility] Platelet mean volume (Bld) [Entitic vol] 11.2 fL 8.1 - 13.5 fL [facility] Platelets (Bld) [#/Vol] 245 10*3/uL [facility] RBC (Bld) [#/Vol] 4.27 10*6/uL 4.21 - 5.7 7 m/uL [facility] Segmented neutrophils/100 WBC (Bld) 3.78 % [facility] WBC other (Bld) [#/Vol] 7.4 B ON [facility] CBC with Diffon 02-26-2024 Abs. Basophil 0.03 k/uL Normal 0.00-0.20 [facility] Comment on above: Performed By: #### C DP, BMPX ####[address] [place] [address] Lab Director: Eder Herrera MD Abs.Imm.Granulocyte <0.03 Normal 0.00-0.30 [facility] Comment on above: Performed By: #### C DP, BMPX ####[address] , [place] [address] Lab Director: Eder Herrera MD Abs.Neutrophil (Seg) 3.78 k/uL Normal 1.50-8.10 [facility] Comment on above: Performed By: #### C DP, BMPX ####[address] [place] [phone] Lab Director: Eder Herrera MD Basophils/100 WBC (Bld) 0 % Normal 0-2 M [facility] Comment on above: Performed By: #### C DP, BMPX ####[address] [place] [address] Lab Director: Eder Herrera MD Eosinophils (Bld) [#/Vol] 0.12 10*3/uL Normal 0.00-0.44 [facility] Comment on above: Performed By: #### C DP, BMPX ####[address] , [place] [address] Lab Director: Eder Herrera MD Eosinophils/100 WBC (Bld) 2 % Normal 1-4 [facility] Comment on above: Performed By: #### C DP, BMPX ####[address] , [place] [address] Lab Director: Eder Herrera MD Erythrocyte distribution width (RBC) [Ratio] 12.6 % Normal 11.8-14.4 [facility] Comment on above: Performed By: #### C DP, BMPX ####[address] , [place] [address] Lab Director: Eder Herrera MD Hematocrit (Bld) [Volume fraction] 37.5 % Low 40.7-50.3 [facility] Comment on above: Performed By: #### C DP, BMPX ####[address] , [facility]83 Lab Director: Eder Herrera MD Hemoglobin (Bld) [Mass/Vol] 12.3 g/dL Low 13.0-17.0 [facility] Comment on above: Performed By: #### C DP, BMPX ####[address] [place] [phone] Lab Director: Eder Herrera MD Immature granulocytes/100 WBC (Bld) 0 % Normal 0 [facility] Comment on above: Performed By: #### C DP, BMPX ####[address] , [facility]83 [facility] Director: Eder Herrera MD Lymphocytes (Bld) [#/Vol] 2.38 10*3/uL Normal 1.10-3.70 [facility] Comment on above: Performed By: #### C DP, BMPX ####[address] , [facility]83 Lab Director: Eder Herrera MD Lymphocytes/100 WBC (Bld) 32 % Normal 24-43 [facility] Comment on above: Performed By: #### C DP, BMPX ####[address] , [facility]83[facility])[phone] Director: Eder Herrera MD MCH (RBC) [Entitic mass] 28.8 pg Normal 25.2-33.5 [facility] Comment on above: Performed By: #### C DP, BMPX ####[address] , [facility]83[facility])[phone] Director: Eder Herrera MD MCHC (RBC) [Mass/Vol] 32.8 g/dL Normal 28.4-34.[address] [facility] Comment on above: Performed By: #### C DP, BMPX ####[address] , [facility]83[facility])[phone] Director: Eder Herrera MD MCV (RBC) [Entitic vol] 87.8 fL Normal 82.6-102.[address] [facility] Comment on above: Performed By: #### C DP, BMPX ####[address] , [place] [phone] Lab Director: Eder Herrera MD Monocytes (Bld) [#/Vol] 1.02 10*3/uL Normal 0.10-1.20 [facility] Comment on above: Performed By: #### C DP, BMPX ####[address] , [place] 5585483 Lab Director: Eder Herrera MD Monocytes/100 WBC (Bld) 14 % High 3-12 M [facility] Comment on above: Performed By: #### C DP, BMPX ####[address] [place] [address] Lab Director: Eder Herrera MD Neutrophil (Seg) 52 % Normal 36-65 [facility] Comment on above: Performed By: #### C DP, BMPX ####[address] [place] [address] Lab Director: Eder Herrera MD NRBC Automated 0.0 per 100 WBC Normal 0.0 [facility] Comment on above: Performed By: #### C DP, BMPX ####[address] , [place] [phone] Lab Director: Eder Herrera MD Platelet mean volume (Bld) [Entitic vol] 11.2 fL Normal 8.1-13.5 [facility] Comment on above: Performed By: #### C DP, BMPX ####[address] , [place] [phone] Director: Eder Herrera MD Platelets (Bld) [#/Vol] 245 10*3/uL Normal 138-453 [facility] Comment on above: Performed By: #### C DP, BMPX ####[address] , [place] [phone] Director: Eder Herrera MD RBC (Bld) [#/Vol] 4.27 10*6/uL Normal 4.21-5.77 [facility] Comment on above: Performed By: #### C DP, BMPX ####[address] [place] [address] Lab Director: Eder Herrera MD WBC (Bld) [#/Vol] 7.4 10*3/uL Normal 3.5-11.3 [facility] Comment on above: Performed By: #### C DP, BMPX ####[facility] [place] [address] lab Director: Eder Herrera MD Glucose, Whole Bloodon 02-25 Glucose [Mass/Vol] 245 mg/dL High 74 - 100 mg/dL [facility] Interpretation and review of laboratory results Abnormal [facility] Glucose [Mass/Vol] 245 mg/dL High 74-100 [facility] Glucose [Mass/Vol] 274 mg/dL High 74 - 100 mg/dL [facility] Interpretation and review of laboratory results Abnormal [facility] Glucose [Mass/Vol] 274 mg/dL High 74-100 [facility] Glucose [Mass/Vol] 299 mg/dL High 74 - 100 mg/dL [facility] Interpretation and review of laboratory results Abnormal [facility] Glucose [Mass/Vol] 299 mg/dL High 74-100 [facility] Glucose [Mass/Vol] 196 mg/dL High 74 - 100 mg/dL [facility] Interpretation and review of laboratory results Abnormal [facility] Glucose [Mass/Vol] 196 mg/dL High 74-100 [facility] Basic Metab w/rfx MGon 02-24 Anion gap [Moles/Vol] 11 mmol/L Normal 9-[address] [facility] Comment on above: Performed By: #### C DP, BMPX, MG ####[facility] , [place] 4688083 lab Director: Eder Herrera MD BUN/CRE Ratio 25 High 9-20 [facility] Comment on above: Performed By: #### C DP, BMPX, MG ####[facility] [place] [address] lab Director: Eder Herrera MD Calcium [Mass/Vol] 9.1 mg/dL Normal 8.6-10.4 [facility] Comment on above: Performed By: #### C DP, BMPX, MG ####[address] , [place] 8303783 lab Director: Eder Herrera MD Chloride [Moles/Vol] 103 mmol/L Normal 98-107 [facility] Comment on above: Performed By: #### C DP, BMPX, MG ####[address] , [place] [phone] lab Director: Eder Herrera MD CO2 [Moles/Vol] 26 mmol/L Normal 20-31 [facility] Comment on above: Performed By: #### C DP, BMPX, MG ####[address] , [place] 8959983 lab Director: Eder Herrera MD Creatinine [Mass/Vol] 1.7 mg/dL High 0.70-1.[address] [facility] Comment on above: Performed By: #### C DP, BMPX, MG ####[address] , [place] [phone] lab Director: Eder Herrera MD GFR/1.73 sq M.predicted among non-blacks MDRD (S/P/Bld) [Vol rate/Area] 45 mL/min/{1.73_m2} Low >60 [facility] Comment on above: Result Comment: Thes [...] Performed By: #### C DP, BMPX, MG ####[address] [place] [address] lab Director: Eder Herrera MD Glucose [Mass/Vol] 116 mg/dL High 74-99 [facility] Comment on above: Performed By: #### C DP, BMPX, MG ####[facility] [place] [address] Lab Director: Eder Herrera MD Potassium [Moles/Vol] 3.1 mmol/L Low 3.7-5.[address] [facility] Comment on above: Performed By: #### C DP, BMPX, MG ####[facility] [place] [address] lab Director: Eder Herrera MD Sodium [Moles/Vol] 140 mmol/L Normal 136-145 [facility] Comment on above: Performed By: #### C DP, BMPX, MG ####[facility] [place] [address] Lab Director: Eder Herrera MD Urea nitrogen [Mass/Vol] 42 mg/dL High 8-23 [facility] Comment on above: Performed By: #### C DP, BMPX, MG ####[facility] [place] [address] lab Director: Eder Herrera MD Basic Metabolic Panel w/ Ref willam to MGon 02-25-2024 Anion gap [Moles/Vol] 11 mmol/L 9 - 16 mmol/L [facility] Calcium [Mass/Vol] 9.1 mg/dL 8.6 - 10. 4 mg/dL [facility] Chloride [Moles/Vol] 103 mmol/L 98 - 10 7 mmol/L [facility] CO2 [Moles/Vol] 26 mmol/L 20 - 31 mmol/L [facility] Creatinine [Mass/Vol] 1.7 mg/dL High 0.70 - 1.20 mg/dL [facility] Est, Glom Filt Rate 45 Low - [facility]F [facility] Comment on above: These results [...] 116 mg/dL High 74 - 99 mg/dL [facility] Interpretation and review of laboratory results Abnormal [facility] Potassium [Moles/Vol] 3.1 mmol/L Low 3.7 - 5.3 mmol/L [facility] Sodium [Moles/Vol] 140 mmol/L 136 - 145 mmol/L [facility] Urea nitrogen [Mass/Vol] 42 mg/dL High 8 - 23 mg/dL [facility] Urea nitrogen/Creatinine [Mass ratio] 25 mg/mg High 9 - 20 [facility] CBC auto differentialon 10-0 Basophils (Bld) [#/Vol] 0.05 10*3/uL [facility] Basophils/100 WBC (Bld) 1 % 0 - 2 % B ON [facility] Eosinophils (Bld) [#/Vol] 0.10 10*3/uL [facility] Eosinophils/100 WBC (Bld) 2 % 1 - 4 % [facility] Erythrocyte distribution width (RBC) [Ratio] 12.4 % 11.8 - 14.4 % [facility] Hematocrit (Bld) [Volume fraction] 37.3 % Low 40.7 - 50.3 % [facility] Hemoglobin (Bld) [Mass/Vol] 12.5 g/dL Low 13.0 - 17.0 g/dL [facility] Immature granulocytes (Bld) [#/Vol] 0.03 10*3/uL [facility] Immature granulocytes/100 WBC (Bld) 0 % 0 [facility] Interpretation and review of laboratory results Abnormal [facility] Lymphocytes/100 WBC (Bld) 37 % 24 - 43 % [facility] Lymphocytes/100 WBC (Bld) 2.50 % [facility] MCH (RBC) [Entitic mass] 29.1 pg 25.2 - 33.5 pg [facility] MCHC (RBC) [Mass/Vol] 33.5 g/dL 28.4 - 34.8 g/dL [facility] MCV (RBC) [Entitic vol] 86.7 fL 82.6 - 102.9 fL [facility] Monocytes/100 WBC (Bld) 14 % High 3 - 12 % B ON [facility] Monocytes/100 WBC (Bld) 0.92 % B ON [facility] Neutrophils/100 WBC (Bld) 47 % 36 - 65 % [facility] Nucleated RBC/100 WBC (Bld) [Ratio] 0.0 % 0.0 per 100 WBC [facility] Platelet mean volume (Bld) [Entitic vol] 10.8 fL 8.1 - 13.5 fL [facility] Platelets (Bld) [#/Vol] 257 10*3/uL [facility] RBC (Bld) [#/Vol] 4.30 10*6/uL 4.21 - 5.7 7 m/uL [facility] Segmented neutrophils/100 WBC (Bld) 3.23 % [facility] WBC other (Bld) [#/Vol] 6.8 B ON [facility] CBC with Diffon 02-25-2024 Abs. Basophil 0.05 k/uL Normal 0.00-0.20 [facility] Comment on above: Performed By: #### C DP BMPX, MG ####[address] , [facility]83 Lab Director: Eder Herrera MD Abs.Imm.Granulocyte 0.03 k/uL Normal 0.00-0.30 [facility] Comment on above: Performed By: #### C DP BMPX, MG ####[address] , [place] [phone] lab Director: Eder Herrera MD Abs.Neutrophil (Seg) 3.23 k/uL Normal 1.50-8.10 [facility] Comment on above: Performed By: #### C DP, BMPX, MG ####[address] , [place] [id number] Lab Director: Eder Herrera MD Basophils/100 WBC (Bld) 1 % Normal 0-[address] [facility] Comment on above: Performed By: #### C DP, BMPX, MG ####[address] , [facility]83 Lab Director: Eder Herrera MD Eosinophils (Bld) [#/Vol] 0.10 10*3/uL Normal 0.00-0.44 [facility] Comment on above: Performed By: #### C DP, BMPX, MG ####[address] , [facility]83 Lab Director: Eder Herrera MD Eosinophils/100 WBC (Bld) 2 % Normal 1-4 [facility] Comment on above: Performed By: #### C DP, BMPX, MG ####[address] , [facility]83 Lab Director: Eder Herrera MD Erythrocyte distribution width (RBC) [Ratio] 12.4 % Normal 11.8-14.4 [facility] Comment on above: Performed By: #### C DP, BMPX, MG ####[address] , [place] [id number] Lab Director: Eder Herrera MD Hematocrit (Bld) [Volume fraction] 37.3 % Low 40.7-50.3 [facility] Comment on above: Performed By: #### C DP, BMPX, MG ####[address] , [place] [id number] Lab Director: Eder Herrera MD Hemoglobin (Bld) [Mass/Vol] 12.5 g/dL Low 13.0-17.0 [facility] Comment on above: Performed By: #### C DP, BMPX, MG ####[address] , [facility]83 Lab Director: Eder Herrera MD Immature granulocytes/100 WBC (Bld) 0 % Normal 0 [facility] Comment on above: Performed By: #### C DP, BMPX, MG ####[address] , [facility]83 lab Director: Eder Herrera MD Lymphocytes (Bld) [#/Vol] 2.50 10*3/uL Normal 1.10-3.70 [facility] Comment on above: Performed By: #### C DP, BMPX, MG ####[address] , [facility]83 lab Director: Eder Herrera MD Lymphocytes/100 WBC (Bld) 37 % Normal 24-43 [facility] Comment on above: Performed By: #### C DP, BMPX, MG ####[address] , [facility]83 lab Director: Eder Herrera MD MCH (RBC) [Entitic mass] 29.1 pg Normal 25.2-33.5 [facility] Comment on above: Performed By: #### C DP, BMPX, MG ####[address] , [facility]83 lab Director: Eder Herrera MD MCHC (RBC) [Mass/Vol] 33.5 g/dL Normal 28.4-34.[address] [facility] Comment on above: Performed By: #### C DP, BMPX, MG ####[address] , [facility]83 lab Director: Eder Herrera MD MCV (RBC) [Entitic vol] 86.7 fL Normal 82.6-102.9 M [facility] Comment on above: Performed By: #### C DP, BMPX, MG ####[address] [place] [address] Lab Director: Eder Herrera MD Monocytes (Bld) [#/Vol] 0.92 10*3/uL Normal 0.10-1.20 [facility] Comment on above: Performed By: #### C DP, BMPX, MG ####[address] [place] [address] Lab Director: Eder Herrera MD Monocytes/100 WBC (Bld) 14 % High 3-12 M [facility] Comment on above: Performed By: #### C DP, BMPX, MG ####[address] , [place] [id number] Lab Director: Eder Herrera MD Neutrophil (Seg) 47 % Normal 36-65 [facility] Comment on above: Performed By: #### C DP, BMPX, MG ####[address] , [place] [id number] Lab Director: Eder Herrera MD NRBC Automated 0.0 per 100 WBC Normal 0.0 [facility] Comment on above: Performed By: #### C DP, BMPX, MG ####[address] [place] [address] Lab Director: Eder Herrera MD Platelet mean volume (Bld) [Entitic vol] 10.8 fL Normal 8.1-13.5 [facility] Comment on above: Performed By: #### C DP, BMPX, MG ####[address] , [place] [id number] Lab Director: Eder Herrera MD Platelets (Bld) [#/Vol] 257 10*3/uL Normal 138-453 [facility] Comment on above: Performed By: #### C DP, BMPX, MG ####[address] [place] [address] Lab Director: Eder Herrera MD RBC (Bld) [#/Vol] 4.30 10*6/uL Normal 4.21-5.77 [facility] Comment on above: Performed By: #### C DP, BMPX, MG ####[facility] [place] [address] lab Director: Eder Herrera MD WBC (Bld) [#/Vol] 6.8 10*3/uL Normal 3.5-11.3 [facility] Comment on above: Performed By: #### C DP, BMPX, MG ####[facility] [place] [address] Lab Director: Eder Herrera MD Cult,Urineon 02-25-2024 Cult,Urine Specimen Description .CLEAN CATCH URINE Special Requests Site: Urine Culture NO SIGNIFICANT GROWTH Report Status FINAL 02/25/2024 Normal [facility] Comment on above: Performed By: #### U RC ####[facility] [id number] [place], [place] [id number] Lab Director: Jimenze Pruett, [facility] [place] [address] , [place] [address] lab Director: Eder Herrera MD Culture, Urineon 02-25-2024 Microorganism identified Cx Nom (Unsp spec) NO SIGNIFICANT GROWTH [facility] comment (Unsp spec) [Interp] Site: Urine [facility] Specimen Description .CLEAN CATCH URINE [facility] Glucose, Whole Bloodon 02-24 Glucose [Mass/Vol] 301 mg/dL High 74 - 100 mg/dL [facility] Interpretation and review of laboratory results Abnormal [facility] Glucose [Mass/Vol] 301 mg/dL High 74-100 [facility] Glucose [Mass/Vol] 306 mg/dL High 74 - 100 mg/dL [facility] Interpretation and review of laboratory results Abnormal [facility] Glucose [Mass/Vol] 306 mg/dL High 74-100 [facility] Glucose [Mass/Vol] 190 mg/dL High 74 - 100 mg/dL [facility] Interpretation and review of laboratory results Abnormal [facility] Glucose [Mass/Vol] 190 mg/dL High 74-100 [facility] Glucose [Mass/Vol] 134 mg/dL High 74 - 100 mg/dL [facility] Interpretation and review of laboratory results Abnormal [facility] Glucose [Mass/Vol] 134 mg/dL High 74-100 [facility] Hemoglobin A1Con 02-25-2024 Glucose [Mass/Vol] 174 mg/dL Normal [facility] Comment on above: Result Comment: The ADA and AACC recommend providing the estimated average glucose result to permit better patient understanding of their HBA1c result. Performed By: #### G LYHGB ####[employer] [id number] [place] [id number] [facility] Director: Jimenez Pruett MD HbA1c (Bld) [Mass fraction] 7.7 % High 4.0-6.0 [facility] Comment on above: Performed By: #### G LYHGB ####[employer] [id number] [place] [id number] lab Director: Jimenez Pruett MD Hemoglobin A1con 02-25-2024 Average glucose Estimated from glycated hemoglobin (Bld) [Mass/Vol] 174 mg/dL [facility] Comment on above: The ADA and AACC rec ommend providing the estimated average glucose result to permit better patient understanding of their HBA1c result. HbA1c (Bld) [Mass fraction] 7.7 % High 4.0 - 6.0 % [facility] Interpretation and review of laboratory results Abnormal [facility] Magnesiumon 02-25-2024 Magnesium [Mass/Vol] 2.0 mg/dL 1.6 - 2 .4 mg/dL [facility] Magnesium [Mass/Vol] 2.0 mg/dL Normal 1.6-2.4 [facility] Comment on above: Performed By: #### C DP, BMPX, MG ####[facility] [address] , [place] [id number] Lab Director: Eder Herrera MD Brain Natri. Peptideon 02-23 Natriuretic peptide B (Bld) [Mass/Vol] 346 pg/mL High 0-125 [facility] Comment on above: Performed By: #### C P, CDP, BNP, MG ####[facility] [place] [address] lab Director: Eder Herrera MD Brain Natriuretic Peptideon 02-24-2024 Natriuretic peptide B (Bld) [Mass/Vol] 346 pg/mL High 0 - 125 pg/mL [facility] CBC with Auto Differentialon 02-24-2024 Basophils (Bld) [#/Vol] 0.05 10*3/uL [facility] Basophils/100 WBC (Bld) 1 % 0 - 2 % B [facility] Eosinophils (Bld) [#/Vol] 0.06 10*3/uL [facility] Eosinophils/100 WBC (Bld) 1 % 1 - 4 % [facility] Erythrocyte distribution width (RBC) [Ratio] 12.4 % 11.8 - 14.4 % [facility] Hematocrit (Bld) [Volume fraction] 44.1 % 40.7 - 50.3 % [facility] Hemoglobin (Bld) [Mass/Vol] 15.0 g/dL 13.0 - 17.0 g/dL [facility] Immature granulocytes (Bld) [#/Vol] 0.04 10*3/uL [facility] Immature granulocytes/100 WBC (Bld) 1 % High 0 [facility] Interpretation and review of laboratory results Abnormal [facility] Lymphocytes/100 WBC (Bld) 28 % 24 - 43 % [facility] Lymphocytes/100 WBC (Bld) 2.20 % [facility] MCH (RBC) [Entitic mass] 29.5 pg 25.2 - 33.5 pg [facility] MCHC (RBC) [Mass/Vol] 34.0 g/dL 28.4 - 34.8 g/dL [facility] MCV (RBC) [Entitic vol] 86.6 fL 82.6 - 102.9 fL [facility] Monocytes/100 WBC (Bld) 10 % 3 - 12 % B ON [facility] Monocytes/100 WBC (Bld) 0.76 % B ON [facility] Neutrophils/100 WBC (Bld) 59 % 36 - 65 % [facility] Nucleated RBC/100 WBC (Bld) [Ratio] 0.0 % 0.0 per 100 WBC [facility] Platelet mean volume (Bld) [Entitic vol] 10.9 fL 8.1 - 13.5 fL [facility] Platelets (Bld) [#/Vol] 291 10*3/uL [facility] RBC (Bld) [#/Vol] 5.09 10*6/uL 4.21 - 5.7 7 m/uL [facility] Segmented neutrophils/100 WBC (Bld) 4.69 % [facility] WBC other (Bld) [#/Vol] 7.8 B ON [facility] CBC with Diffon 02-24-2024 Abs. Basophil 0.05 k/uL Normal 0.00-0.20 [facility] Comment on above: Performed By: #### C P, CDP, BNP, MG ####[address] [place] [address] Lab Director: Eder Herrera MD Abs.Imm.Granulocyte 0.04 k/uL Normal 0.00-0.30 [facility] Comment on above: Performed By: #### C P, CDP, BNP, MG ####[address] [place] [address] Lab Director: Eder Herrera MD Abs.Neutrophil (Seg) 4.69 k/uL Normal 1.50-8.10 [facility] Comment on above: Performed By: #### C P, CDP, BNP, MG ####[address] , [place] [id number] Lab Director: Eder Herrera MD Basophils/100 WBC (Bld) 1 % Normal 0-[address] [facility] Comment on above: Performed By: #### C P, CDP, BNP, MG ####[address] , [place] 867[address]83 lab Director: Eder Herrera MD Eosinophils (Bld) [#/Vol] 0.06 10*3/uL Normal 0.00-0.44 [facility] Comment on above: Performed By: #### C P, CDP, BNP, MG ####[address] , [facility]83 lab Director: Eder Herrera MD Eosinophils/100 WBC (Bld) 1 % Normal 1-4 [facility] Comment on above: Performed By: #### C P, CDP, BNP, MG ####[address] , [facility]83 lab Director: Eder Herrera MD Erythrocyte distribution width (RBC) [Ratio] 12.4 % Normal 11.8-14.4 [facility] Comment on above: Performed By: #### C P, CDP, BNP, MG ####[address] , [facility]83 lab Director: Eder Herrera MD Hematocrit (Bld) [Volume fraction] 44.1 % Normal 40.7-50.3 [facility] Comment on above: Performed By: #### C P, CDP, BNP, MG ####[address] , [place] [id number] lab Director: Eder Herrera MD Hemoglobin (Bld) [Mass/Vol] 15.0 g/dL Normal 13.0-17.0 [facility] Comment on above: Performed By: #### C P, CDP, BNP, MG ####[address] , [place] 05[address]83 lab Director: Eder Herrera MD Immature granulocytes/100 WBC (Bld) 1 % High 0 [facility] Comment on above: Performed By: #### C P, CDP, BNP, MG ####[address] , [place] 1433883 lab Director: Eder Herrera MD Lymphocytes (Bld) [#/Vol] 2.20 10*3/uL Normal 1.10-3.70 [facility] Comment on above: Performed By: #### C P, CDP, BNP, MG ####[address] , [place] 69[address] lab Director: Eder Herrera MD Lymphocytes/100 WBC (Bld) 28 % Normal 24-43 [facility] Comment on above: Performed By: #### C P, CDP, BNP, MG ####[address] , [place] 357[address]83 lab Director: Eder Herrera MD MCH (RBC) [Entitic mass] 29.5 pg Normal 25.2-33.5 [facility] Comment on above: Performed By: #### C P, CDP, BNP, MG ####[address] , [place] 360[address]83 lab Director: Eder Herrera MD MCHC (RBC) [Mass/Vol] 34.0 g/dL Normal 28.4-34.[address] [facility] Comment on above: Performed By: #### C P, CDP, BNP, MG ####[address] , [place] 1411[address] lab Director: Eder Herrera MD MCV (RBC) [Entitic vol] 86.6 fL Normal 82.6-102.9 M [facility] Comment on above: Performed By: #### C P, CDP, BNP, MG ####[address] , [place] [address] Lab Director: Eder Herrera MD Monocytes (Bld) [#/Vol] 0.76 10*3/uL Normal 0.10-1.20 [facility] Comment on above: Performed By: #### C P, CDP, BNP, MG ####[address] , [place] [address] Lab Director: Eder Herrera MD Monocytes/100 WBC (Bld) 10 % Normal 3-12 M [facility] Comment on above: Performed By: #### C P, CDP, BNP, MG ####[address] , [facility]83 Lab Director: Eder Herrera MD Neutrophil (Seg) 59 % Normal 36-65 [facility] Comment on above: Performed By: #### C P, CDP, BNP, MG ####[address] , [facility]83 Lab Director: Eder Herrera MD NRBC Automated 0.0 per 100 WBC Normal 0.0 [facility] Comment on above: Performed By: #### C P, CDP, BNP, MG ####[address] , [place] [id number] Lab Director: Eder Herrera MD Platelet mean volume (Bld) [Entitic vol] 10.9 fL Normal 8.1-13.5 [facility] Comment on above: Performed By: #### C P, CDP, BNP, MG ####[address] , [place] 0638783 Lab Director: Eder Herrera MD Platelets (Bld) [#/Vol] 291 10*3/uL Normal 138-453 [facility] Comment on above: Performed By: #### C P, CDP, BNP, MG ####[address] [place] [address] lab Director: Eder Herrera MD RBC (Bld) [#/Vol] 5.09 10*6/uL Normal 4.21-5.77 [facility] Comment on above: Performed By: #### C P, CDP, BNP, MG ####[facility] [place] [address] lab Director: Eder Herrera MD WBC (Bld) [#/Vol] 7.8 10*3/uL Normal 3.5-11.3 [facility] Comment on above: Performed By: #### C P, CDP, BNP, MG ####[facility] [place] [address] lab Director: Eder Herrera MD CMPon 02-24-2024 Albumin [Mass/Vol] 4.3 g/dL 3.5 - 5.2 g/dL [facility] Albumin/Globulin [Mass ratio] 1.2 {ratio} 1.0 - 2.5 [facility] ALP [Catalytic activity/Vol] 109 U/L 40 - 129 U/L [facility] ALT [Catalytic activity/Vol] 17 U/L 10 - 50 U/L [facility] Anion gap [Moles/Vol] 14 mmol/L 9 - 16 mmol/L [facility] AST [Catalytic activity/Vol] 17 U/L 10 - 50 U/L [facility] Bilirubin [Mass/Vol] 0.2 mg/dL 0.00 - 1.20 mg/dL [facility] Calcium [Mass/Vol] 9.6 mg/dL 8.6 - 10. 4 mg/dL [facility] Chloride [Moles/Vol] 97 mmol/L Low 98 - 10 7 mmol/L [facility] CO2 [Moles/Vol] 27 mmol/L 20 - 31 mmol/L [facility] Creatinine [Mass/Vol] 1.7 mg/dL High 0.70 - 1.20 mg/dL [facility] Est, Glom Filt Rate 44 Low - [facility] Comment on above: These results [...] 170 mg/dL High 74 - 99 mg/dL [facility] Potassium [Moles/Vol] 3.2 mmol/L Low 3.7 - 5.3 mmol/L [facility] Protein [Mass/Vol] 7.8 g/dL 6.6 - 8.7 g/dL [facility] Sodium [Moles/Vol] 138 mmol/L 136 - 145 mmol/L [facility] Urea nitrogen [Mass/Vol] 49 mg/dL High 8 - 23 mg/dL [facility] Urea nitrogen/Creatinine [Mass ratio] 29 mg/mg High 9 - 20 [facility] Comp Metabolic Profon 2023 Albumin [Mass/Vol] 4.3 g/dL Normal 3.5-5.2 [facility] Comment on above: Performed By: #### C P, CDP, BNP, MG ####[address] [place] [address] Lab Director: Eder Herrera MD Albumin/Glob Ratio 1.2 Normal 1.0-2.5 [facility] Comment on above: Performed By: #### C P, CDP, BNP, MG ####[facility] [place] [address] lab Director: Eder Herrera MD Alkaline Phos 109 U/L Normal 40-129 [facility] Comment on above: Performed By: #### C P, CDP, BNP, MG ####[facility] [place] [address] lab Director: Eder Herrera MD ALT [Catalytic activity/Vol] 17 U/L Normal 10-50 [facility] Comment on above: Performed By: #### C P, CDP, BNP, MG ####[address] , [place] [id number] lab Director: Eder Herrera MD Anion gap [Moles/Vol] 14 mmol/L Normal 9-[address] [facility] Comment on above: Performed By: #### C P, CDP, BNP, MG ####[address] , [facility]83 lab Director: Eder Herrera MD AST [Catalytic activity/Vol] 17 U/L Normal 10-50 [facility] Comment on above: Performed By: #### C P, CDP, BNP, MG ####[address] , [place] [id number] lab Director: Eder Herrera MD Bilirubin [Mass/Vol] 0.2 mg/dL Normal 0.00-1.20 [facility] Comment on above: Performed By: #### C P, CDP, BNP, MG ####[address] , [place] 201[address]83 lab Director: Eder Herrera MD BUN/CRE Ratio 29 High 9-20 [facility] Comment on above: Performed By: #### C P, CDP, BNP, MG ####[address] , [facility]83 lab Director: Eder Herrera MD Calcium [Mass/Vol] 9.6 mg/dL Normal 8.6-10.4 [facility] Comment on above: Performed By: #### C P, CDP, BNP, MG ####[address] [place] [address] lab Director: Eder Herrera MD Chloride [Moles/Vol] 97 mmol/L Low 98-107 [facility] Comment on above: Performed By: #### C P, CDP, BNP, MG ####[address] , [place] 6[address] Lab Director: Eder Herrera MD CO2 [Moles/Vol] 27 mmol/L Normal 20-31 [facility] Comment on above: Performed By: #### C P, CDP, BNP, MG ####[address] [place] [address] Lab Director: Eder Herrera MD Creatinine [Mass/Vol] 1.7 mg/dL High 0.70-1.[address] [facility] Comment on above: Performed By: #### C P, CDP, BNP, MG ####[address] [place] [address] Lab Director: Eder Herrera MD GFR/1.73 sq M.predicted among non-blacks MDRD (S/P/Bld) [Vol rate/Area] 44 mL/min/{1.73_m2} Low >60 [facility] Comment on above: Result Comment: Thes [...] By: #### C P, CDP, BNP, MG ####[address] , [place] 124[address] lab Director: Eder Herrera MD Glucose [Mass/Vol] 170 mg/dL High 74-99 [facility] Comment on above: Performed By: #### C P, CDP, BNP, MG ####[address] , [place] [id number] lab Director: Eder Herrera MD Potassium [Moles/Vol] 3.2 mmol/L Low 3.7-5.[address] [facility] Comment on above: Performed By: #### C P, CDP, BNP, MG ####[facility] [place] [address] lab Director: Eder Herrera MD Protein [Mass/Vol] 7.8 g/dL Normal 6.6-8.7 [facility] Comment on above: Performed By: #### C P, CDP, BNP, MG ####[facility] [place] [address] lab Director: Eder Herrera MD Sodium [Moles/Vol] 138 mmol/L Normal 136-145 [facility] Comment on above: Performed By: #### C P, CDP, BNP, MG ####[address] [place] [address] lab Director: Eder Herrera MD Urea nitrogen [Mass/Vol] 49 mg/dL High 8-23 [facility] Comment on above: Performed By: #### C P, CDP, BNP, MG ####[address] [place] [address] lab Director: Eder Herrera MD Glucose, Whole Bloodon 02-23 Glucose [Mass/Vol] 187 mg/dL High 74 - 100 mg/dL [facility] Interpretation and review of laboratory results Abnormal [facility] Glucose [Mass/Vol] 187 mg/dL High 74-100 [facility] Glucose [Mass/Vol] 199 mg/dL High 74 - 100 mg/dL [facility] Interpretation and review of laboratory results Abnormal [facility] Glucose [Mass/Vol] 199 mg/dL High 74-100 [facility] Magnesiumon 02-24-2024 Magnesium [Mass/Vol] 2.0 mg/dL 1.6 - 2 .4 mg/dL [facility] Magnesium [Mass/Vol] 2.0 mg/dL Normal 1.6-2.4 [facility] Comment on above: Performed By: #### C P, CDP, BNP, MG ####[facility] [place], [place] [id number] lab Director: Eder Herrera MD Microscopic Urinalysison Bacteria LM Ql (Urine sed) TRACE Abnormal None [facility] Epithelial cells LM.HPF (Urine sed) [#/Area] 0 TO 2 [facility] RBC LM.HPF (Urine sed) [#/Area] 0 TO 2 [facility] WBC LM.HPF (Urine sed) [#/Area] 0 TO 2 [facility] No Panel Informationon 02-23 Right tib [...] changes as above. No acute osseous abnormality. [facility] RIS CONSOLIDATED [...] phalanx 2nd digit. Boehler's angle is maintained. [facility] RIS CONSOLIDATED [...] changes as above. No acute osseous abnormality. [facility] Interpretation and review of laboratory results Abnormal [facility] Interpretation and review of laboratory results Abnormal [facility] No Panel InformationOrdered By: Ravinder Corona on 02-24-2024 [facility] Work Phone: UA w/Reflex Cultureon 2023 Bilirubin, SemiQt,Ur Negative Normal NEG [facility] Comment on above: Performed By: #### U MICAO, UAX ####[facility] [place] [address] Lab Director: Eder Herrera MD Blood, Urine Negative Normal NEG [facility] Comment on above: Performed By: #### U MICAO, UAX ####[facility] [place] [address] Lab Director: Eder Herrera MD Clarity (U) Clear Normal CLEAR [facility] Comment on above: Performed By: #### U MICAO, UAX ####[facility] [place] [address] Lab Director: Eder Herrera MD Color (U) Yellow Normal YEL [facility] Comment on above: Performed By: #### U MICAO, UAX ####[address] , [place] [id number] Lab Director: Eder Herrera MD Glucose Ql (U) 3+ mg/dL Abnormal NEG [facility] Comment on above: Performed By: #### U MICAO, UAX ####[address] [place] [address] Lab Director: Eder Herrera MD Ketones Ql (U) Negative Normal NEG [facility] Comment on above: Performed By: #### U MICAO, UAX ####[address] , [place] [id number] Lab Director: Eder Herrera MD Leukocyte esterase Test strip Ql (U) Negative Normal NEG [facility] Comment on above: Performed By: #### U MICAO, UAX ####[address] [place] [address] Lab Director: Eder Herrera MD Nitrite,Ur Negative Normal NEG [facility] Comment on above: Performed By: #### U MICAO, UAX ####[address] [place] [address] Lab Director: Eder Herrera MD PH,Ur 6.0 Normal 5.0-9.0 [facility] Comment on above: Performed By: #### U MICAO, UAX ####[address] [place] [address] Lab Director: Eder Herrera MD Protein Ql (U) Negative Normal NEG [facility] Comment on above: Performed By: #### U MICAO, UAX ####[address] [place] [address] Lab Director: Eder Herrera MD Spec. Enochs,Ur <1.005 Low 1.010-1.020 [facility] Comment on above: Performed By: #### U SHAWN, UAX ####[facility] [place] [address] lab Director: Eder Herrera MD Urobilinogen,Ur Normal Normal 0.0-1.0 [facility] Comment on above: Performed By: #### U SHAWN, UAX ####[facility] [place] [address] lab Director: Eder Herrera MD Urinalysis with Reflex to Cu ltureon 02-24-2024 Bilirubin Ql (U) Negative NEGATIVE [facility] Clarity (U) Clear Clear [facility] Color (U) Yellow Yellow [facility] Glucose Test strip (U) [Mass/Vol] 3+ Abnormal NEGATIVE mg/dL [facility] Hemoglobin Auto test strip Ql (U) Negative NEGATIVE [facility] Ketones (U) [Mass/Vol] Negative NEGAT PAO mg/dL [facility] Leukocyte esterase Test strip Ql (U) Negative NEGATIVE [facility] Nitrite Ql (U) Negative NEGATIVE [facility] pH (U) 6.0 [pH] 5.0 - 9.0 [facility] Protein (U) [Mass/Vol] Negative NEGAT PAO mg/dL [facility] Specific gravity (U) [Rel density] Low 1.010 - 1.020 [facility] Urobilinogen Qn (U) Normal 0.0 - 1. 0 EU/dL [facility] Urinalysis,Microon 4 Bacteria TRACE Abnormal NONE [facility] Comment on above: Performed By: #### U SHAWN UAX ####[facility] [place] [address] lab Director: Eder Herrera MD Epithelial cells LM Ql (Urine sed) 0 TO 2 Normal 0-5 [facility] Comment on above: Performed By: #### U SHAWN UAX ####[facility] , [place] [id number] lab Director: Eder Herrera MD Urine RBC's 0 TO 2 Normal 0-2 [facility] Comment on above: Performed By: #### U MICAO, UAX ####[facility] , [place] [address] lab Director: Eder Herrera MD Urine WBC's 0 TO 2 Normal 0-5 [facility] Comment on above: Performed By: #### U MICAO, UAX ####[facility] [place] [address] lab Director: Edre Herrera MD XR FOOT LEFT (MIN 3 VIEWS)on 02-24-2024 XR FOOT LEFT (MIN 3 VIEWS) [facility] XR FOOT RIGHT (MIN 3 VIEWS)o n 02-24-2024 XR FOOT RIGHT (MIN 3 VIEWS) Normal [facility] XR Foot - left 3 [facility] Study observation (narrative) [facility] XR Foot - right 3 [facility] Study observation (narrative) [facility] XR TIBIA FIBULA LEFT (2 VIEW S)on 02-24-2024 XR TIBIA FIBULA LEFT (2 VIEWS) [facility] XR TIBIA FIBULA RIGHT (2 VIE WS)on 02-24-2024 XR TIBIA FIBULA RIGHT (2 VIEWS) [facility] XR Tibia and Fibula - left 2 [facility] 02-24-2024 Radiology Study observation (narrative) [facility] XR Tibia and Fibula - right 2 [facility] 02-24-2024 Radiology Study observation (narrative) [facility] Basic Metabolic Panelon 09- Anion gap [Moles/Vol] 13 mmol/L 9 - 16 mmol/L [facility] Calcium [Mass/Vol] 8.9 mg/dL 8.6 - 10. 4 mg/dL [facility] Chloride [Moles/Vol] 101 mmol/L 98 - 10 7 mmol/L [facility] [facility] CO2 [Moles/Vol] 25 mmol/L 20 - 31 mmol/L [facility] Creatinine [Mass/Vol] 1.6 mg/dL High 0.70 - 1.20 mg/dL [facility] Yuliet [place] Rate 49 Low - [facility] Comment on above: These results [...] 220 mg/dL High 74 - 99 mg/dL [facility] Potassium [Moles/Vol] 4.4 mmol/L 3.7 - 5.3 mmol/L [facility] Sodium [Moles/Vol] 139 mmol/L 136 - 145 mmol/L [facility] Urea nitrogen [Mass/Vol] 33 mg/dL High 8 - 23 mg/dL [facility] Urea nitrogen/Creatinine [Mass ratio] 21 mg/mg High 9 - 20 [facility] Basic Metabolic Profon 02-08 Anion gap [Moles/Vol] 13 mmol/L Normal -[address] [facility] Comment on above: Performed By: #### B MP, CDP, CRP ####[facility] [address] [place], [place] 1442483 Lab Director: Eder Herrera MD#### GLYHGB ####[facility] [address] [place], [place] [id number] Lab Director: Jimenez Pruett MD BUN/CRE Ratio 21 High - [facility] Comment on above: Performed By: #### B MP, CDP, CRP ####[facility] [address] [place], [place] 9366483 Lab Director: Eder Herrera MD#### GLYHGB ####[facility] [address] [place] [address] Lab Director: Jimenez Pruett MD Calcium [Mass/Vol] 8.9 mg/dL Normal 8.6-10.4 [facility] Comment on above: Performed By: #### B MP, CDP, CRP ####[address] [place] [address] Lab Director: Eder Herrera MD#### GLYHGB ####[address] [place], [place] [phone] Director: Jimenez Pruett MD Chloride [Moles/Vol] 101 mmol/L Normal 98-107 [facility] Comment on above: Performed By: #### B MP, CDP, CRP ####[address] [place], [place] 9550483 Lab Director: Eder Herrera MD#### GLYHGB ####[address] [phone] Director: Jimenez Pruett MD CO2 [Moles/Vol] 25 mmol/L Normal 20-31 [facility] Comment on above: Performed By: #### B MP, CDP, CRP ####[address] [place] [address] Lab Director: Eder Herrera MD#### GLYHGB ####[address] [address] Lab Director: Jimenez Pruett MD Creatinine [Mass/Vol] 1.6 mg/dL High 0.70-1.[address] [facility] Comment on above: Performed By: #### B MP, CDP, CRP ####[address] [place], [place] [phone] Director: Eder Herrera MD#### GLYHGB ####[facility] [place] [address] Lab Director: Jimenez Pruett MD GFR/1.73 sq M.predicted among non-blacks MDRD (S/P/Bld) [Vol rate/Area] 49 mL/min/{1.73_m2} Low >60 [facility] Comment on above: Result Comment: Thes [...] Performed By: #### B MEHUL CDP, CRP ####[address] [place] [phone] Lab Director: Eder Herrera MD#### GLYHGB ####[address] [phone] Lab Director: Jimenez Pruett MD Glucose [Mass/Vol] 220 mg/dL High 74-99 [facility] Comment on above: Performed By: #### B MEHUL CDP, CRP ####[address] [place] 29[address]83 Lab Director: Eder Herrera MD#### GLYHGB ####[address] [phone] Lab Director: Jimenez Pruett MD Potassium [Moles/Vol] 4.4 mmol/L Normal 3.7-5.[address] [facility] Comment on above: Performed By: #### B MEHUL CDP, CRP ####[address] [place] 29[address]83 Lab Director: Eder Herrera MD#### GLYHGB ####[address] [place] [address] Lab Director: Jimenez Pruett MD Sodium [Moles/Vol] 139 mmol/L Normal 136-145 [facility] Comment on above: Performed By: #### B MP, CDP, CRP ####[facility] , [place] 2242883 Lab Director: Eder Herrera MD#### GLYHGB ####[facility] [address] [place], [place] 8920808 Lab Director: Jimenez Pruett MD Urea nitrogen [Mass/Vol] 33 mg/dL High 8-23 [facility] Comment on above: Performed By: #### B MP, CDP, CRP ####[address] [place], [place] 5756383 Lab Director: Eder Herrera MD#### GLYHGB ####[address] [place], [place] 6004908 Lab Director: Jimenez Pruett MD C-Reactive Proteinon 024 CRP High sensitivity method [Mass/Vol] 7.4 mg/L High 0.0 - 5.0 mg/L [facility] CRP [Mass/Vol] 7.4 mg/L High 0.0-5.0 [facility] Comment on above: Performed By: #### B MP, CDP, CRP ####[address] [place], [place] 9948583 Lab Director: Eder Herrera MD#### GLYHGB ####[facility] [address] [place] [address] Lab Director: Jimenez Pruett MD CBC with Auto Differentialon 02-09-2024 Basophils (Bld) [#/Vol] 0.03 10*3/uL [facility] Basophils/100 WBC (Bld) 1 % 0 - 2 % [facility] Eosinophils (Bld) [#/Vol] 0.07 10*3/uL [facility] Eosinophils/100 WBC (Bld) 1 % 1 - 4 % [facility] Erythrocyte distribution width (RBC) [Ratio] 12.5 % 11.8 - 14.4 % [facility] Hematocrit (Bld) [Volume fraction] 40.5 % Low 40.7 - 50.3 % [facility] Hemoglobin (Bld) [Mass/Vol] 13.2 g/dL 13.0 - 17.0 g/dL [facility] Immature granulocytes (Bld) [#/Vol] [facility] Immature granulocytes/100 WBC (Bld) 0 % 0 [facility] Interpretation and review of laboratory results Abnormal [facility] Lymphocytes/100 WBC (Bld) 27 % 24 - 43 % [facility] Lymphocytes/100 WBC (Bld) 1.64 % [facility] MCH (RBC) [Entitic mass] 29.2 pg 25.2 - 33.5 pg [facility] MCHC (RBC) [Mass/Vol] 32.6 g/dL 28.4 - 34.8 g/dL [facility] MCV (RBC) [Entitic vol] 89.6 fL 82.6 - 102.9 fL [facility] Monocytes/100 WBC (Bld) 11 % 3 - 12 % [facility] Monocytes/100 WBC (Bld) 0.64 % [facility] Neutrophils/100 WBC (Bld) 60 % 36 - 65 % [facility] Nucleated RBC/100 WBC (Bld) [Ratio] 0.0 % 0.0 per 100 WBC [facility] Platelet mean volume (Bld) [Entitic vol] 11.2 fL 8.1 - 13.5 fL [facility] Platelets (Bld) [#/Vol] 259 10*3/uL [facility] RBC (Bld) [#/Vol] 4.52 10*6/uL 4.21 - 5.7 7 m/uL [facility] Segmented neutrophils/100 WBC (Bld) 3.61 % [facility] WBC other (Bld) [#/Vol] 6.0 B ON [facility] CBC with Diffon 02-09-2024 Abs. Basophil 0.03 k/uL Normal 0.00-0.20 [facility] Comment on above: Performed By: #### B MP, CDP, CRP ####[address] [place] [id number] Lab Director: Eder Herrera MD#### GLYHGB ####[address] [phone] Director: Jimenez Pruett MD Abs.Imm.Granulocyte <0.03 Normal 0.00-0.30 [facility] Comment on above: Performed By: #### B MP, CDP, CRP ####[address] [place], [place] [address])[phone] Director: Eder Herrera MD#### GLYHGB ####[address] [phone] Director: Jimenez Pruett MD Abs.Neutrophil (Seg) 3.61 k/uL Normal 1.50-8.10 [facility] Comment on above: Performed By: #### B MP, CDP, CRP ####[address] [place], [place] [address])[phone] Director: Eder Herrera MD#### GLYHGB ####[address] [phone] Director: Jimenez Pruett MD Basophils/100 WBC (Bld) 1 % Normal 0-2 M [facility] Comment on above: Performed By: #### B MP, CDP, CRP ####[address] [place] [address] Lab Director: Eder Herrera MD#### GLYHGB ####[address] [phone] Director: Jimenez Pruett MD Eosinophils (Bld) [#/Vol] 0.07 10*3/uL Normal 0.00-0.44 [facility] Comment on above: Performed By: #### B MP, CDP, CRP ####[facility] [address] , [place] 3604483 Lab Director: Eder Herrera MD#### GLYHGB ####[address] [place], [place] [phone] Lab Director: Jimenez Pruett MD Eosinophils/100 WBC (Bld) 1 % Normal 1-4 [facility] Comment on above: Performed By: #### B MP, CDP, CRP ####[facility] , [place] 9819883 Lab Director: Eder Herrera MD#### GLYHGB ####[address] [address] Lab Director: Jimenez Pruett MD Erythrocyte distribution width (RBC) [Ratio] 12.5 % Normal 11.8-14.4 [facility] Comment on above: Performed By: #### B MP, CDP, CRP ####[facility] [place] [address] Lab Director: Eder Herrera MD#### GLYHGB ####[address] [address] Lab Director: Jimenez Pruett MD Hematocrit (Bld) [Volume fraction] 40.5 % Low 40.7-50.3 [facility] Comment on above: Performed By: #### B MP, CDP, CRP ####[address] , [place] 4856883 Lab Director: Eder Herrera MD#### GLYHGB ####[address] [place] [address] Lab Director: Jimenez Pruett MD Hemoglobin (Bld) [Mass/Vol] 13.2 g/dL Normal 13.0-17.0 [facility] Comment on above: Performed By: #### B MP, CDP, CRP ####[address] , [place] [phone] Director: Eder Herrera MD#### GLYHGB ####[address] [place], [place] [phone] Director: Jimenez Pruett MD Immature granulocytes/100 WBC (Bld) 0 % Normal 0 [facility] Comment on above: Performed By: #### B MP, CDP, CRP ####[address] [place], [place] [phone] Director: Eder Herrera MD#### GLYHGB ####[address] [place], [place] [phone] Director: Jimenez Pruett MD Lymphocytes (Bld) [#/Vol] 1.64 10*3/uL Normal 1.10-3.70 [facility] Comment on above: Performed By: #### B MP, CDP, CRP ####[address] , [place] [phone] Director: Eedr Herrera MD#### GLYHGB ####[address] [phone] Director: Jimenez Pruett MD Lymphocytes/100 WBC (Bld) 27 % Normal 24-43 [facility] Comment on above: Performed By: #### B MP, CDP, CRP ####[address] [place] [phone] Director: Eder Herrera MD#### GLYHGB ####[address] [place], [place] [phone] Director: Jimenez Pruett MD MCH (RBC) [Entitic mass] 29.2 pg Normal 25.2-33.5 [facility] Comment on above: Performed By: #### B MP, CDP, CRP ####[address] [place] [address] Lab Director: Eder Herrera MD#### GLYHGB ####[address] [place], [place] [phone] Director: Jimenez Pruett MD MCHC (RBC) [Mass/Vol] 32.6 g/dL Normal 28.4-34.[address] [facility] Comment on above: Performed By: #### B MP, CDP, CRP ####[address] [place], [place] 9452783 Lab Director: Eder Herrera MD#### GLYHGB ####[address] [address] Lab Director: Jimenez Pruett MD MCV (RBC) [Entitic vol] 89.6 fL Normal 82.6-102.[address] [facility] Comment on above: Performed By: #### B MP, CDP, CRP ####[address] [place], [place] 0420783 Lab Director: Eder Herrera MD#### GLYHGB ####[address] [phone] Director: Jimenez Pruett MD Monocytes (Bld) [#/Vol] 0.64 10*3/uL Normal 0.10-1.20 [facility] Comment on above: Performed By: #### B MP, CDP, CRP ####[address] [place], [place] 2970283 Lab Director: Eder Herrera MD#### GLYHGB ####[address] [place] [address] Lab Director: Jimenez Pruett MD Monocytes/100 WBC (Bld) 11 % Normal 3-12 M [facility] Comment on above: Performed By: #### B MP, CDP, CRP ####[address] , [place] [phone] Lab Director: Eder Herrera MD#### GLYHGB ####[address] [place] [address] Lab Director: Jimenez Pruett MD Neutrophil (Seg) 60 % Normal 36-65 [facility] Comment on above: Performed By: #### B MP, CDP, CRP ####[address] [place] [address] Lab Director: Eder Herrera MD#### GLYHGB ####[address] [address] Lab Director: Jimenez Pruett MD NRBC Automated 0.0 per 100 WBC Normal 0.0 [facility] Comment on above: Performed By: #### B MP, CDP, CRP ####[address] [place] [address] Lab Director: Eder Herrera MD#### GLYHGB ####[address] [address] Lab Director: Jimenez Pruett MD Platelet mean volume (Bld) [Entitic vol] 11.2 fL Normal 8.1-13.5 [facility] Comment on above: Performed By: #### B MP, CDP, CRP ####[address] , [place] 9486783 Lab Director: Eder Herrera MD#### GLYHGB ####[address] [address] Lab Director: Jimenez Pruett MD Platelets (Bld) [#/Vol] 259 10*3/uL Normal 138-453 [facility] Comment on above: Performed By: #### B MP, CDP, CRP ####[address] , [place] 1795183 Lab Director: Eder Herrera MD#### GLYHGB ####[address] [place] [address] Lab Director: Jimenez Pruett MD RBC (Bld) [#/Vol] 4.52 10*6/uL Normal 4.21-5.77 [facility] Comment on above: Performed By: #### B MP, CDP, CRP ####[address] , [place] 4481583 Lab Director: Eder Herrera MD#### GLYHGB ####[address] [place] [address] Lab Director: Jimenez Pruett MD WBC (Bld) [#/Vol] 6.0 10*3/uL Normal 3.5-11.3 [facility] Comment on above: Performed By: #### B MEHUL, CDP, CRP ####[address] , [place] 9112483 Lab Director: Eder Herrera MD#### GLYHGB ####[address] [place] [address] Lab Director: Jimenez Pruett MD Hemoglobin A1Con 02-09-2024 Average glucose Estimated from glycated hemoglobin (Bld) [Mass/Vol] 166 mg/dL [facility] Comment on above: The ADA and AACC rec ommend providing the estimated average glucose result to permit better patient understanding of their HBA1c result. HbA1c (Bld) [Mass fraction] 7.4 % High 4.0 - 6.0 % [facility] Interpretation and review of laboratory results Abnormal [facility] Glucose [Mass/Vol] 166 mg/dL Normal [facility] Comment on above: Result Comment: The ADA and AACC recommend providing the estimated average glucose result to permit better patient understanding of their HBA1c result. Performed By: #### B MP, CDP, CRP ####[facility] [address] [place], [place] [address] Lab Director: Eder Herrera MD#### GLYHGB ####[facility] [address] [place], [place] 8193408 Lab Director: Jimenez Pruett MD HbA1c (Bld) [Mass fraction] 7.4 % High 4.0-6.0 [facility] Comment on above: Performed By: #### B MP, CDP, CRP ####[facility] [address] [place], [place] 0100083 lab Director: Eder Herrera MD#### GLYHGB ####[facility] [address] [place], [place] 2924[address] lab Director: Jimenez Pruett MD No Panel Informationon 02-08 Interpretation and review of laboratory results Abnormal [facility] Basic Metabolic Panelon 07-2 Anion gap [Moles/Vol] 9 mmol/L 9 - 17 mmol/L [facility] Calcium [Mass/Vol] 9.5 mg/dL 8.6 - 10. 4 mg/dL [facility] Chloride [Moles/Vol] 109 mmol/L High 98 - 10 7 mmol/L [facility] CO2 [Moles/Vol] 22 mmol/L 20 - 31 mmol/L [facility] Creatinine [Mass/Vol] 1.6 mg/dL High 0.7 - 1.2 mg/dL [facility] Est, Glom Filt Rate 48 Low - [facility] Comment on above: These results [...] 111 mg/dL High 70 - 99 mg/dL [facility] Interpretation and review of laboratory results Abnormal [facility] Potassium [Moles/Vol] 4.1 mmol/L 3.7 - 5.3 mmol/L [facility] Sodium [Moles/Vol] 140 mmol/L 135 - 144 mmol/L [facility] Urea nitrogen [Mass/Vol] 30 mg/dL High 8 - 23 mg/dL [facility] Basic Metabolic Profon 12-20 Anion gap [Moles/Vol] 9 mmol/L Normal 9-17 [facility] Comment on above: Performed By: #### B MP #### [place] [address] Wood Patternmaker: Emiliano Hurtado MD Calcium [Mass/Vol] 9.5 mg/dL Normal 8.6-10.4 [facility] Comment on above: Performed By: #### B MP #### [place] [address] [employer] Patternmaker: Emiliano Hurtado MD Chloride [Moles/Vol] 109 mmol/L High 98-107 [facility] Comment on above: Performed By: #### B MP #### [place] [address] [employer] Patternmaker: Emiliano Hurtado MD CO2 [Moles/Vol] 22 mmol/L Normal 20-31 [facility] Comment on above: Performed By: #### B MP #### [place] [phone] [employer] Patternmaker: Emiliano Hurtado MD Creatinine [Mass/Vol] 1.6 mg/dL High 0.7-1.2 [facility] Comment on above: Performed By: #### B MP #### [place] [phone] [employer] Patternmaker: Emiliano Hurtado MD GFR/1.73 sq M.predicted among non-blacks MDRD (S/P/Bld) [Vol rate/Area] 48 mL/min/{1.73_m2} Low >60 [facility] Comment on above: Result Comment: These results [...] secretion. Performed By: #### B MP #### [place] [address] [employer] Patternmaker: Emiliano Hurtado MD Glucose [Mass/Vol] 111 mg/dL High 70-99 [facility] Comment on above: Performed By: #### B MP #### [place] [address] [employer] Patternmaker: Emiliano Hurtado MD Potassium [Moles/Vol] 4.1 mmol/L Normal 3.7-5.3 [facility] Comment on above: Performed By: #### B MP #### [place] [address] [employer] Patternmaker: Emiliano Hurtado MD Sodium [Moles/Vol] 140 mmol/L Normal 135-144 [facility] Comment on above: Performed By: #### B MP #### [place] [address] [employer] Patternmaker: Emiliano Hurtado MD Urea nitrogen [Mass/Vol] 30 mg/dL High 8-23 [facility] Comment on above: Performed By: #### B MP #### [address] [place] [address] Wood Patternmaker: Emiliano Hurtado MD Basic Metabolic Panelon 10-23 Anion gap [Moles/Vol] 10 mmol/L 9 - 17 mmol/L [facility] Calcium [Mass/Vol] 10.1 mg/dL 8.6 - 10. 4 mg/dL [facility] Chloride [Moles/Vol] 99 mmol/L 98 - 10 7 mmol/L [facility] CO2 [Moles/Vol] 28 mmol/L 20 - 31 mmol/L [facility] Creatinine [Mass/Vol] 1.6 mg/dL High 0.7 - 1.2 mg/dL [facility] EstYuliett Rate 48 Low - [facility] Comment on above: These results [...] 132 mg/dL High 70 - 99 mg/dL [facility] Potassium [Moles/Vol] 4.7 mmol/L 3.7 - 5.3 mmol/L [facility] Sodium [Moles/Vol] 137 mmol/L 135 - 144 mmol/L [facility] Urea nitrogen [Mass/Vol] 29 mg/dL High 8 - 23 mg/dL [facility] Urea nitrogen/Creatinine [Mass ratio] 18 mg/mg 9 - 20 [facility] Brain Natriuretic Peptideon 11-11-2023 Natriuretic peptide B (Bld) [Mass/Vol] 681 pg/mL High NINF - 300 pg/mL [facility] Comment on above: An age-independent cutoff point of 300 pg/ml has a 98% negative predictive value excluding acute heart failure. CBC with Auto Differentialon 11-11-2023 Basophils (Bld) [#/Vol] 0.08 10*3/uL [facility] Basophils/100 WBC (Bld) 1 % 0 - 2 % B ON [facility] Eosinophils (Bld) [#/Vol] 0.07 10*3/uL [facility] Eosinophils/100 WBC (Bld) 1 % 1 - 4 % [facility] Erythrocyte distribution width (RBC) [Ratio] 12.2 % 11.8 - 14.4 % [facility] Hematocrit (Bld) [Volume fraction] 38.3 % Low 40.7 - 50.3 % [facility] Hemoglobin (Bld) [Mass/Vol] 12.6 g/dL Low 13.0 - 17.0 g/dL [facility] Immature granulocytes (Bld) [#/Vol] 0.03 10*3/uL [facility] Immature granulocytes/100 WBC (Bld) 0 % 0 [facility] Interpretation and review of laboratory results Abnormal [facility] Lymphocytes/100 WBC (Bld) 28 % 24 - 43 % [facility] Lymphocytes/100 WBC (Bld) 1.92 % [facility] MCH (RBC) [Entitic mass] 29.5 pg 25.2 - 33.5 pg [facility] MCHC (RBC) [Mass/Vol] 32.9 g/dL 28.4 - 34.8 g/dL [facility] MCV (RBC) [Entitic vol] 89.7 fL 82.6 - 102.9 fL [facility] Monocytes/100 WBC (Bld) 10 % 3 - 12 % [facility] Monocytes/100 WBC (Bld) 0.69 % [facility] Neutrophils/100 WBC (Bld) 60 % 36 - 65 % [facility] Nucleated RBC/100 WBC (Bld) [Ratio] 0.0 % 0.0 per 100 WBC [facility] Platelet mean volume (Bld) [Entitic vol] 10.7 fL 8.1 - 13.5 fL [facility] Platelets (Bld) [#/Vol] 406 10*3/uL [facility] RBC (Bld) [#/Vol] 4.27 10*6/uL 4.21 - 5.7 7 m/uL [facility] Segmented neutrophils/100 WBC (Bld) 4.06 % [facility] WBC other (Bld) [#/Vol] 6.9 B ON [facility] Comprehensive Metabolic Pane julio césar 11-11-2023 Albumin [Mass/Vol] 3.8 g/dL 3.5 - 5.2 g/dL [facility] Albumin/Globulin [Mass ratio] 1.1 {ratio} 1.0 - 2.5 [facility] ALP [Catalytic activity/Vol] 86 U/L 40 - 129 U/L [facility] ALT [Catalytic activity/Vol] 19 U/L 5 - 41 U/L [facility] Anion gap [Moles/Vol] 10 mmol/L 9 - 17 mmol/L [facility] AST [Catalytic activity/Vol] 15 U/L NINF - 40 U/L [facility] Bilirubin [Mass/Vol] 0.2 mg/dL Low 0.3 - 1 .2 mg/dL [facility] Calcium [Mass/Vol] 10.1 mg/dL 8.6 - 10. 4 mg/dL [facility] Chloride [Moles/Vol] 101 mmol/L 98 - 10 7 mmol/L [facility] CO2 [Moles/Vol] 27 mmol/L 20 - 31 mmol/L [facility] Creatinine [Mass/Vol] 1.7 mg/dL High 0.7 - 1.2 mg/dL [facility] Est, Glom Filt Rate 44 Low - [facility] Comment on above: These results [...] 130 mg/dL High 70 - 99 mg/dL [facility] Interpretation and review of laboratory results Abnormal [facility] Potassium [Moles/Vol] 4.4 mmol/L 3.7 - 5.3 mmol/L [facility] [employer] Protein [Mass/Vol] 7.2 g/dL 6.4 - 8.3 g/dL [facility] [place] [employer] Sodium [Moles/Vol] 138 mmol/L 135 - 144 mmol/L [facility] Urea nitrogen [Mass/Vol] 29 mg/dL High 8 - 23 mg/dL [facility] [employer] Urea nitrogen/Creatinine [Mass ratio] 17 mg/mg 9 - 20 [facility] [employer] Hemoglobin A1Con 11-11-2023 Average glucose Estimated from glycated hemoglobin (Bld) [Mass/Vol] 177 mg/dL [facility] [place] [employer] Comment on above: The ADA and AACC rec ommend providing the estimated average glucose result to permit better patient understanding of their HBA1c result. HbA1c (Bld) [Mass fraction] 7.8 % High 4.0 - 6.0 % [facility] [place] [employer] Interpretation and review of laboratory results Abnormal [facility]ALTHTr[facility] [place] [employer] Lipid Panelon 11-11-2023 Cholesterol [Mass/Vol] 146 mg/dL 0 - 1 99 mg/dL [facility] Comment on above: Cholesterol Guidelines: <200 Desirable 200-240 Borderline >240 Undesirable Cholesterol in HDL [Mass/Vol] 24 mg/dL Low 40 - PINF mg/dL [facility] Comment on above: HDL Guidelines: <40 Undesirable 40-59 Borderline >59 Desirable Cholesterol in LDL [Mass/Vol] 78 mg/dL 0 - 100 mg/dL [facility] Comment on above: LDL Guidelines: <100 Desirable 100-129 Near to/above Desirable 130-159 Borderline >159 Undesirable Direct (measured) LDL and calculated LDL are not interchangeable tests. Cholesterol in VLDL [Mass/Vol] 44 mg/dL [facility] Cholesterol.total/Shi sterol in HDL [Mass ratio] 6.0 {ratio} [facility] [place] F[facility] Interpretation and review of laboratory results Abnormal [facility]git[facility] Triglyceride [Mass/Vol] 222 mg/dL High NINF - 150 mg/dL [facility] Comment on above: Triglyceride Guidelines: <150 Desirable 150-199 Borderline 200-499 High >499 Very high Based on AHA Guidelines for fasting triglyceride, February 2012. [facility] No Panel Informationon 11-10 Interpretation and review of laboratory results Abnormal [facility] Basic Metabolic Panelon 10-23 Anion gap [Moles/Vol] 11 mmol/L 9 - 17 mmol/L [facility] Calcium [Mass/Vol] 9.9 mg/dL 8.6 - 10. 4 mg/dL [facility] Chloride [Moles/Vol] 101 mmol/L 98 - 10 7 mmol/L [facility] CO2 [Moles/Vol] 22 mmol/L 20 - 31 mmol/L [facility] Creatinine [Mass/Vol] 1.4 mg/dL High 0.7 - 1.2 mg/dL [facility] Est, Yuliet Colónt Rate 56 Low - PINF [facility] Comment on above: These results [...] 224 mg/dL High 70 - 99 mg/dL [facility] Potassium [Moles/Vol] 4.7 mmol/L 3.7 - 5.3 mmol/L [facility] Sodium [Moles/Vol] 134 mmol/L Low 135 - 144 mmol/L [facility] Urea nitrogen [Mass/Vol] 25 mg/dL High 8 - 23 mg/dL [facility] Urea nitrogen/Creatinine [Mass ratio] 18 mg/mg 9 - 20 [facility] Brain Natriuretic Peptideon 11-03-2023 Natriuretic peptide B (Bld) [Mass/Vol] 2818 pg/mL High NINF - 300 pg/mL [facility] Comment on above: An age-independent cutoff point of 300 pg/ml has a 98% negative predictive value excluding acute heart failure. Glucose, Whole Bloodon 11-02 Glucose [Mass/Vol] 196 mg/dL High 74 - 100 mg/dL [facility] Interpretation and review of laboratory results Abnormal [facility] No Panel Informationon 11-02 Interpretation and review of laboratory results Abnormal [facility] Portable XR Chest AP single viewon 11-03-2023 Mild generalized ischial prominence favoring vascular congestion. Platelike subsegmental atelectasis left costophrenic angle. No focal consolidation. [facility] [...] effusion or pneumothorax. No acute bony abnormality. [facility] [...] atelectasis left costophrenic angle. No focal consolidation. [facility] Radiology Study observation (narrative) [facility] Portable XR Chest AP single viewOrdered By: Adrian Gonzalez on 11-03-2023 [facility] Work Phone: Basic Metabolic Panelon 07-23 Anion gap [Moles/Vol] 10 mmol/L 9 - 17 mmol/L [facility] Calcium [Mass/Vol] 9.1 mg/dL 8.6 - 10. 4 mg/dL [facility] Chloride [Moles/Vol] 102 mmol/L 98 - 10 7 mmol/L [facility] CO2 [Moles/Vol] 28 mmol/L 20 - 31 mmol/L [facility] Creatinine [Mass/Vol] 1.5 mg/dL High 0.7 - 1.2 mg/dL [facility] GFR/1.73 sq M.predicted MDRD (S/P/Bld) [Vol rate/Area] 52 mL/min/{1.73_m2} Low - PINF [facility] Comment on above: These results [...] 182 mg/dL High 70 - 99 mg/dL [facility] Interpretation and review of laboratory results Abnormal [facility] Potassium [Moles/Vol] 4.8 mmol/L 3.7 - 5.3 mmol/L [facility] Sodium [Moles/Vol] 140 mmol/L 135 - 144 mmol/L [facility] Urea nitrogen [Mass/Vol] 30 mg/dL High 8 - 23 mg/dL [facility] Urea nitrogen/Creatinine [Mass ratio] 20 mg/mg 9 - 20 [facility] CBCon 06-30-2023 Erythrocyte distribution width (RBC) [Ratio] 11.8 % 11.8 - 14.4 % [facility] Hematocrit (Bld) [Volume fraction] 39.1 % Low 40.7 - 50.3 % [facility] Hemoglobin (Bld) [Mass/Vol] 12.8 g/dL Low 13.0 - 17.0 g/dL [facility] Interpretation and review of laboratory results Abnormal [facility] MCH (RBC) [Entitic mass] 29.6 pg 25.2 - 33.5 pg [facility] MCHC (RBC) [Mass/Vol] 32.7 g/dL 28.4 - 34.8 g/dL [facility] MCV (RBC) [Entitic vol] 90.5 fL 82.6 - 102.9 fL [facility] Nucleated RBC/100 WBC (Bld) [Ratio] 0.0 % 0.0 per 100 WBC [facility] Platelet mean volume (Bld) [Entitic vol] 11.0 fL 8.1 - 13.5 fL [facility] Platelets (Bld) [#/Vol] 264 10*3/uL [facility] RBC (Bld) [#/Vol] 4.32 10*6/uL 4.21 - 5.7 7 m/uL [facility] WBC other (Bld) [#/Vol] 5.9 B ON [facility] Magnesiumon 06-30-2023 Magnesium [Mass/Vol] 1.9 mg/dL 1.6 - 2 .6 mg/dL [facility] Microscopic Urinalysison Epithelial cells LM.HPF (Urine sed) [#/Area] 0 TO 2 [facility] RBC LM.HPF (Urine sed) [#/Area] 0 TO 2 [facility] WBC LM.HPF (Urine sed) [#/Area] 0 TO 2 [facility] No Panel Informationon 06-30 [facility] PTH, [place] 06-30-2023 Interpretation and review of laboratory results Abnormal [facility] Parathyrin.intact [Mass/Vol] 117.9 pg/mL High 14.0 - 72.0 pg/mL [facility] Comment on above: SAMPLES FROM PATIENT S ROUTINELY RECEIVING HIGH DOSE BIOTIN THERAPY MAY SHOW FALSELY DEPRESSED RESULTS. ADDITIONAL INFORMATION MAY BE REQUIRED FOR DIAGNOSIS. [facility] Protein / creatinine ratio, urineon 06-30-2023 Creatinine (U) [Mass/Vol] 89.0 mg/dL 39.0 - 259.0 mg/dL [facility] Interpretation and review of laboratory results Abnormal [facility] Protein (U) [Mass/Vol] 48 mg/dL [facility] Comment on above: No normal range esta blished. Urine Total Protein Creatinine Ratio 0.54 High 0.00 - 0.20 [facility] Renal Function Panelon 06-30 Albumin [Mass/Vol] 4.0 g/dL 3.5 - 5.2 g/dL [facility] Anion gap [Moles/Vol] 10 mmol/L 9 - 17 mmol/L [facility] Calcium [Mass/Vol] 8.7 mg/dL 8.6 - 10. 4 mg/dL [facility] Chloride [Moles/Vol] 100 mmol/L 98 - 10 7 mmol/L [facility] CO2 [Moles/Vol] 25 mmol/L 20 - 31 mmol/L [facility] Creatinine [Mass/Vol] 1.4 mg/dL High 0.7 - 1.2 mg/dL [facility] GFR/1.73 sq M.predicted MDRD (S/P/Bld) [Vol rate/Area] 56 mL/min/{1.73_m2} Low - PINF [facility] Comment on above: These results [...] 230 mg/dL High 70 - 99 mg/dL [facility] Interpretation and review of laboratory results Abnormal [facility] Phosphate [Mass/Vol] 2.5 mg/dL 2.5 - 4 .5 mg/dL [facility] Potassium [Moles/Vol] 4.3 mmol/L 3.7 - 5.3 mmol/L [facility] Sodium [Moles/Vol] 135 mmol/L 135 - 144 mmol/L [facility] Urea nitrogen [Mass/Vol] 33 mg/dL High 8 - 23 mg/dL [facility] Urea nitrogen/Creatinine [Mass ratio] 24 mg/mg High 9 - 20 [facility] Uric Acidon 06-30-2023 Urate [Mass/Vol] 6.8 mg/dL 3.4 - 7.0 mg/dL [facility] Urinalysis with Reflex to Cu ltureon 06-30-2023 Bilirubin Ql (U) Negative NEGATIVE [facility] Clarity (U) Clear Clear [facility] Color (U) Yellow Yellow [facility] Glucose Test strip (U) [Mass/Vol] 2+ Abnormal NEGATIVE mg/dL [facility] Hemoglobin Auto test strip Ql (U) TRACE Abnormal NEGATIVE [facility] Interpretation and review of laboratory results Abnormal [facility] Ketones (U) [Mass/Vol] Negative NEGAT PAO mg/dL [facility] Leukocyte esterase Test strip Ql (U) Negative NEGATIVE [facility] Nitrite Ql (U) Negative NEGATIVE [place] [facility] pH (U) 6.0 [pH] 5.0 - 9.0 [facility] Protein (U) [Mass/Vol] 1+ Abnormal NEGAT PAO mg/dL [facility] Specific gravity (U) [Rel density] 1.015 1.010 - 1.020 [facility] Urobilinogen Qn (U) Normal 0.0 - 1. 0 EU/dL [facility] NM PARATHYORID W SPECTon No parathyroid adenoma localized. [facility] EXAMINATION: NUCLEAR MEDICINE PARATHYROID SCINTIGRAPHY WITH [...] focal areas of abnormal radiotracer activity identified. [facility] Carmen Carr MD - 01/15/2023 EXAMINATION: [...] activity identified. IMPRESSION: No parathyroid adenoma localized. [facility] Radiology Study observation (narrative) [facility] NM PARATHYORID W SPECTOrdere d By: Carmen Carr on 01-15-2023 [facility] Work Phone: XR CHEST (2 VW)on 12-22-2022 No acute process. [facility] EXAMINATION: TWO XRAY VIEWS OF THE CHEST 12/22/2022 11:10 am COMPARISON: 06/05/2021 HISTORY: ORDERING SYSTEM PROVIDED HISTORY: Dyspnea on exertion TECHNOLOGIST PROVIDED HISTORY: dyspnea on exertion FINDINGS: The lungs are without acute focal process. There is no effusion or pneumothorax. The cardiomediastinal silhouette is stable. The osseous structures are stable. [facility] Francois De La Cruz MD - 12/22/2022 EXAMINATION: TWO XRAY VIEWS OF THE CHEST 12/22/2022 11:10 am COMPARISON: 06/05/2021 HISTORY: ORDERING SYSTEM PROVIDED HISTORY: Dyspnea on exertion TECHNOLOGIST PROVIDED HISTORY: dyspnea on exertion FINDINGS: The lungs are without acute focal process. There is no effusion or pneumothorax. The cardiomediastinal silhouette is stable. The osseous structures are stable. IMPRESSION: No acute process. [facility] Radiology Study observation (narrative) [employer] [facility] [employer] XR CHEST (2 VW)Ordered By: Selena De La Cruz on 12-22-2022 [facility] Work Phone: A1C with Estimated Average Yifan rodríguez 11-06-2022 Glucose [Mass/Vol] 166 mg/dL Normal [facility] Comment on above: Result Comment: PERF ORMED BY: [place] [address] PATHOLOGIST SPED TEACHER YURI ORTA M.D. Performed By: #### A 1C [facility] eA #### [address] HbA1c (Bld) [Mass fraction] 7.4 % High 4.3-5.6 [facility] Comment on above: Result Comment: Incr eased risk for diabetes: 5.7 - 6.4 diabetes: >6.4 glycemic control for adults with diabetes: <7.0 Performed By: #### A 1C [facility] eA #### [address] CBC AUTO DIFFon 10-20-2022 BASO # 0.0 103/ul Normal 0.0-0.1 [facility] Comment on above: Performed By: #### C BC #### [facility] [address] [place] [address] Dr. Robert Almendarez Basophils/100 WBC (Bld) 0.6 % Normal 0.2-2.0 [facility] Comment on above: Performed By: #### C BC #### [facility] [address] [place] [address] Dr. Robert Almendarez EO # 0.1 103/ul Normal 0.0-0.7 [facility] Comment on above: Performed By: #### C BC #### [facility] [address] [place] [address] Dr. Robert Almendarez Eosinophils/100 WBC (Bld) 1.4 % Normal 0.9-7.0 [facility] Comment on above: Performed By: #### C BC #### [facility] [address] [place] [address] Dr. Robert Almendarez Erythrocyte distribution width (RBC) [Ratio] 11.7 % Normal 11.0-15.0 [facility] Comment on above: Performed By: #### C BC #### [facility] [address] [place] [address] Dr. Robert Almendarez Hematocrit (Bld) [Volume fraction] 38.4 % Critically low 42.0-54.0 [facility] Comment on above: Performed By: #### C BC #### [facility] [address] [place] [address] Dr. Robert Almendarez Hemoglobin (Bld) [Mass/Vol] 12.7 g/dL Critically low 14.0-18.0 [facility] Comment on above: Performed By: #### C BC #### [facility] [address] [place] [address] Dr. Robert Almendarez IG # 0.02 10e3/ul Normal 0.00-0.[address] [facility] Comment on above: Performed By: #### C BC #### [facility] [address] [place] [address] Dr. Robert Almendarez IG % 0.3 % Normal 0.0-0.[address] [facility] Comment on above: Performed By: #### C BC #### [facility] [address] [place] [address] Dr. Robert Almendarez LYMPH # 1.4 103/ul Normal 1.2-3.[address] [facility] Comment on above: Performed By: #### C BC #### [facility] [address] [place] [address] Dr. Robert Almendarez Lymphocytes/100 WBC (Bld) 21.2 % Normal 20.5-60.0 [facility] Comment on above: Performed By: #### C BC #### [facility] [address] [place] [address] Dr. Robert Almendarez MANUAL DIFF REQ NO Normal [facility] Comment on above: Performed By: #### C BC #### [facility] [address] [place] [address] Dr. Robert Almendarez MCH (RBC) [Entitic mass] 29.3 pg Normal 25.9-34.0 [facility] Comment on above: Performed By: #### C BC #### [facility] [address] [place] [address] Dr. Robert Almendarez MCHC (RBC) [Mass/Vol] 33.1 g/dL Normal 29.9-35.2 [facility] Comment on above: Performed By: #### C BC #### [facility] [address] [place] [address] Dr. Robert Almendarez MCV (RBC) [Entitic vol] 88.7 fL Normal 80.0-94.0 [facility] Comment on above: Performed By: #### C BC #### [facility] [address] [place] [address] Dr. Robert Almendarez MONO # 0.5 103/ul Normal 0.3-0.8 [facility] Comment on above: Performed By: #### C BC #### [facility] [address] [place] [address] Dr. Robert Almendarez Monocytes/100 WBC (Bld) 7.1 % Normal 1.7-12.0 [facility] Comment on above: Performed By: #### C BC #### [facility] [address] [place] [address] Dr. Robert Almendarez NEUT # 4.6 103/ul Normal 1.4-6.5 [facility] Comment on above: Performed By: #### C BC #### [facility] [address] [place] [address] Dr. Robert Almendarez Neutrophils/100 WBC (Bld) 69.4 % Normal 43.0-75.0 [facility] Comment on above: Performed By: #### C BC #### [facility] [address] [place] [address] Dr. Robert Almendarez Platelet mean volume (Bld) [Entitic vol] 10.7 fL Normal 9.5-13.5 [facility] Comment on above: Performed By: #### C BC #### [facility] [address] [address] [address] Robert Almendarez PLT 232 103/ul Normal 150-[address] [facility] Comment on above: Performed By: #### C BC #### [facility] [address] [address] [address] Robert Almendarez RBC 4.33 106/ul Critically low 4.70-6.10 [facility] Comment on above: Performed By: #### C BC #### [facility] [address] [id number] oRbert Almendarez WBC 6.7 103/ul Normal 4.0-11.0 [facility] Comment on above: Performed By: #### C BC #### [facility] [address] [place] [address] ABD/PELVIS WO CONon [...] REBEKAH THOMPSON Date: 2022-10-20 14:[address] [facility] CULTURE URINEon 10-20-2022 CULTURE URINE Culture Observations : NO GROWTH. Normal [facility] Comment on above: Performed By: #### P T, PTT #### [facility] [address] [place] [address] Dr. Robert Almendarez ER URINE PROFILEon 3 Bilirubin Ql (U) Negative Normal NEGATIVE [facility] Comment on above: Performed By: #### Fallon YAÑEZ UMICRO #### [facility] [address] [place] [address] Dr. Robert Almendarez Clarity (U) SL CLOUDY Abnormal CLEAR [facility] Comment on above: Performed By: #### Fallon YAÑEZ UMICRO #### [facility] [address] [place] [address] Dr. Robert Almendarez Color (U) RED Abnormal YELLOW [facility] Comment on above: Performed By: #### Fallon YAÑEZ UMICRO #### [facility] [address] [place] [address] Dr. Robert Almendarez ERUJazmine A micrscopic examination will be performed if indicated. Normal [facility] Comment on above: Performed By: #### Fallon YAÑEZ UMICRO #### [facility] [address] [place] [address] Dr. Robert Almendarez Glucose Ql (U) Negative Normal NEGATIVE [facility] Comment on above: Performed By: #### Fallon YAÑEZ UMICRO #### [facility] [address] [place] [address] Dr. Robert Almendarez Hemoglobin Ql (U) LARGE Abnormal NEGATIVE [facility] Comment on above: Performed By: #### Fallon YAÑEZ UMICRO #### [facility] [address] [place] [address] Dr. Robert Almendarez Ketones Ql (U) Negative Normal NEGATIVE [facility] Comment on above: Performed By: #### Fallon YAÑEZ UMICRO #### [facility] [address] [place] [address] Dr. Robert Almendarez LEUKOCYTES MODERATE Abnormal NEGATIVE [facility] Comment on above: Performed By: #### Fallon YAÑEZ UMICRO #### [facility] [address] [place] [address] Dr. Robert Almendarez Nitrite Ql (U) Unable to perform testing due to color interference. Abnormal NEGATIVE [facility] Comment on above: Performed By: #### Fallon YAÑEZ UMICRO #### [facility] [address] [place] [address] Dr. Robert Almendarez pH (U) 5.0 [pH] Normal 5-9 [facility] Comment on above: Performed By: #### Fallon YAÑEZ UMICRO #### [facility] [address] [place] [address] Dr. Robert Almendarez Protein (U) [Mass/Vol] 300 mg/dL Abnormal NEGAT PAO/ TRACE [facility] Comment on above: Performed By: #### Fallon YAÑEZ UMICRO #### [facility] [address] [place] [address] Dr. Robert Almendarez SPEC GRAVITY 1.015 Normal 1.005-<=1.0 25 [facility] Comment on above: Performed By: #### Fallon YAÑEZ UMICRO #### [facility] [address] [place] [address] Dr. Robert Almendarez UR MICRO IND INDICATED Normal [facility] Comment on above: Performed By: #### Fallon YAÑEZ UMICRO #### [facility] [address] [place] [address] Dr. Robert Almendarez Urobilinogen Qn (U) 1.0 {Fabiana'U}/dL Normal 0.2 - 1. 0 [facility] Comment on above: Performed By: #### E MARIA C YAÑEZ #### [facility] [address] [address] [address] Robert Almendarez PROF 14(COMP METB)on 023 Albumin [Mass/Vol] 3.5 g/dL Normal 3.4-5.0 [facility] Comment on above: Performed By: #### C MP #### [facility] [address] [place] [address] Dr. Robert Almendarez Albumin/Globulin [Mass ratio] 0.9 {ratio} Normal [facility] Comment on above: Performed By: #### C MP #### [facility] [address] [place] [address] Dr. Robert Almendarez ALP [Catalytic activity/Vol] 78 U/L Normal 46-116 [facility] Comment on above: Performed By: #### C MP #### [facility] [address] [place] [address] Dr. Robert Almendarez ALT [Catalytic activity/Vol] 28 U/L Normal 16-63 [facility] Comment on above: Performed By: #### C MP #### [facility] [address] [place] [address] Dr. Robert Almendarez Anion gap [Moles/Vol] 14.1 mmol/L Normal [facility] Comment on above: Performed By: #### C MP #### [facility] [address] [place] [address] Dr. Robert Almendarez AST [Catalytic activity/Vol] 15 U/L Normal 15-37 [facility] Comment on above: Performed By: #### C MP #### [facility] [address] [place] [address] Dr. Robert Almendarez Bilirubin [Mass/Vol] 0.4 mg/dL Normal 0.2-1.0 [facility] Comment on above: Performed By: #### C MP #### [facility] [address] [place] [address] Dr. Robert Almendarez Calcium [Mass/Vol] 10.6 mg/dL Critically high 8.5-10.1 [facility] Comment on above: Performed By: #### C MP #### [facility] [address] [address] [address] Robert Almendarez Chloride [Moles/Vol] 100 mmol/L Normal 98-107 [facility] Comment on above: Performed By: #### C MP #### [facility] [address] [address] [address] Robert Almendarez CO2 [Moles/Vol] 25.4 mmol/L Normal 21.0-32.0 [facility] Comment on above: Performed By: #### C MP #### [facility] [address] [address] [address] Robert Almendarez Creatinine [Mass/Vol] 1.81 mg/dL Critically high 0.70-1.30 [facility] Comment on above: Performed By: #### C MP #### [facility] [address] [place] [address] Dr. Robert Almendarez EGFR-AF DANISH 46 mL/min/1.73m2 Critically low >=60 [facility] Comment on above: Performed By: #### C MP #### [facility] [address] [address] [address] Robert Almendarez EGFR-NON AF DANISH 38 mL/min/1.73m2 Critically low >=60 [facility] Comment on above: Performed By: #### C MP #### [facility] [address] [place] [address] Dr. Robert Almendarez Globulin (S) [Mass/Vol] 4.0 g/dL Normal [facility] Comment on above: Performed By: #### C MP #### [facility] [address] [address] [address] Robert Almendarez Glucose [Mass/Vol] 177 mg/dL Critically high 74-106 [facility] Comment on above: Performed By: #### C MP #### [facility] [address] [address] [address] Robert Almendarez Potassium [Moles/Vol] 4.5 mmol/L Normal 3.5-5.1 [facility] Comment on above: Performed By: #### C MP #### [facility] [address] [address] [address] Robert Almendarez Protein [Mass/Vol] 7.5 g/dL Normal 6.4-8.2 [facility] Comment on above: Performed By: #### C MP #### [facility] [address] [address] [address] Robert Almendarez Sodium [Moles/Vol] 135 mmol/L Critically low 136-145 [facility] Comment on above: Performed By: #### C MP #### [facility] [address] [address] [address] Robert Almendarez Urea nitrogen [Mass/Vol] 32.0 mg/dL Critically high 7.0-18.0 [facility] Comment on above: Performed By: #### C MP #### [facility] [address] [place] [address] Dr. Robert Almendarez Urea nitrogen/Creatinine [Mass ratio] 17.7 mg/mg Normal [facility] Comment on above: Performed By: #### C MP #### [facility] [address] [place] [address] Dr. Robert Almendarez TYPE AND SCREENon 10-20-2022 TYPE AND SCREEN Negative Normal [facility] Comment on above: Performed By: #### P T, PTT #### [facility] [address] [place] [address] Dr. Robert Almendarez URINE MICROSCOPIC ONLYon BACTERIA NONE SEEN Normal NONE SEEN [facility] Comment on above: Performed By: #### Fallon YAÑEZ UMICRO #### [facility] [address] [place] [address] Dr. Robert Almendarez Bacteria identified Cx Nom (U) NOT INDICATED Normal [facility] Comment on above: Performed By: #### E OTILIO UMICRO #### [facility] [address] [place] [address] Dr. Robert Almendarez CAST NONE SEEN Normal NONE SEEN [facility] Comment on above: Performed By: #### Fallon YAÑEZ UMICRO #### [facility] [address] [place] [address] Dr. Robert Almendarez Crystals LM Nom (Urine sed) NONE SEEN Normal NONE SEEN [facility] Comment on above: Performed By: #### JOSE HAYESRO #### [facility] [address] [place] [address] Dr. Robert Almendarez Epithelial cells LM Ql (Urine sed) NONE SEEN Normal NONE SEEN /RARE [facility] Comment on above: Performed By: #### Fallon YAÑEZ UMICRO #### [facility] [address] [place] [address] Dr. Robert Almendarez MUCOUS NONE SEEN Normal NONE SEEN [facility] Comment on above: Performed By: #### Fallon YAÑEZ UMFRANCESRO #### [facility] [address] [place] [address] Dr. Rboert Almendarez RBC 75-100 Abnormal 0-2 [facility] Comment on above: Performed By: #### JOSE HAYESRO #### [facility] [address] [place] [address] Dr. Robert Almendarez WBC 10-20 Abnormal NONE SEEN [facility] Comment on above: Performed By: #### JOSE HAYESRO #### [facility] [address] [place] [address] Dr. Robert Almendarez BNPon 10-13-2022 Natriuretic peptide B (Bld) [Mass/Vol] 473.0 pg/mL Normal <=900.0 [facility] Comment on above: Performed By: #### P T, PTT #### [facility] [address] [place] [address] Dr. Robert Almendarez CARDIAC FLOYD ADMITon 023 CK [Catalytic activity/Vol] 60 U/L Normal 39-[address] [facility] Comment on above: Performed By: #### P T, PTT #### [facility] [address] [place] [address] Dr. Robert Almendarez CK.MB [Mass/Vol] 1.74 ng/mL Normal <=3.60 [facility] Comment on above: Performed By: #### P T, PTT #### [facility] [address] [place] [address] Dr. Robert Almendarez HSTROP 29.8 pg/mL Normal 4.0-76.1 [facility] Comment on above: Result Comment: CUT- OFF POINTS HAVE BEEN ESTABLISHED BASED ON THE FOURTH UNIVERSAL DEFINITIONS OF MYOCARDIAL INFARCTION. THE UPPER REFERENCE LIMIT (URL) OF TROPONIN, DEFINED THE 99TH PERCENTILE OF cTnI DISTRIBUTION IN A REFERENCE POPULATION, HAS BEEN CONFIRMED THE DECISION THRESHOLD FOR MD DIAGNOSIS. Performed By: #### P T, PTT #### [facility] [address] [address] [address] Robert Almendarez JERMAN 70 ng/mL Normal 16-96 [facility] Comment on above: Performed By: #### P T, PTT #### [facility] [address] [place] [address] Dr. Robert Almendarez CBC AUTO DIFFon 10-13-2022 BASO # 0.0 103/ul Normal 0.0-0.1 [facility] Comment on above: Performed By: #### C BC #### [facility] [address] [place] [address] Dr. Robert Amlendarez Basophils/100 WBC (Bld) 0.7 % Normal 0.2-2.0 [facility] Comment on above: Performed By: #### C BC #### [facility] [address] [place] [address] Dr. Robert Almendarez EO # 0.1 103/ul Normal 0.0-0.7 [facility] Comment on above: Performed By: #### C BC #### [facility] [address] [address] [address] Robert Almendarez Eosinophils/100 WBC (Bld) 1.1 % Normal 0.9-7.0 [facility] Comment on above: Performed By: #### C BC #### [facility] [address] [place] [address] Dr. Robert Almendarez Erythrocyte distribution width (RBC) [Ratio] 11.7 % Normal 11.0-15.0 [facility] Comment on above: Performed By: #### C BC #### [facility] [address] [place] [address] Dr. Robert Almendarez Hematocrit (Bld) [Volume fraction] 39.0 % Critically low 42.0-54.0 [facility] Comment on above: Performed By: #### C BC #### [facility] [address] [place] [address] Dr. Robert Almendarez Hemoglobin (Bld) [Mass/Vol] 13.1 g/dL Critically low 14.0-18.0 [facility] Comment on above: Performed By: #### C BC #### [facility] [address] [place] [address] Dr. Robert Almendarez IG # 0.02 10e3/ul Normal 0.00-0.03 [facility] Comment on above: Performed By: #### C BC #### [facility] [address] [place] [address] Dr. Robert Almendarez IG % 0.3 % Normal 0.0-0.5 [facility] Comment on above: Performed By: #### C BC #### [facility] [address] [place] [address] Dr. Robert Almendarez LYMPH # 2.0 103/ul Normal 1.2-3.8 [facility] Comment on above: Performed By: #### C BC #### [facility] [address] [place] [address] Dr. Robert Almendarez Lymphocytes/100 WBC (Bld) 32.4 % Normal 20.5-60.0 [facility] Comment on above: Performed By: #### C BC #### [facility] [address] [place] [address] Dr. Robert Almendarez MANUAL DIFF REQ NO Normal [facility] Comment on above: Performed By: #### C BC #### [facility] [address] [place] [address] Dr. Robert Almendarez MCH (RBC) [Entitic mass] 29.5 pg Normal 25.9-34.0 [facility] Comment on above: Performed By: #### C BC #### [facility] [address] [place] [address] Dr. Robert Almendarez MCHC (RBC) [Mass/Vol] 33.6 g/dL Normal 29.9-35.2 [facility] Comment on above: Performed By: #### C BC #### [facility] [address] [place] [address] Dr. Robert Almendarez MCV (RBC) [Entitic vol] 87.8 fL Normal 80.0-94.0 [facility] Comment on above: Performed By: #### C BC #### [facility] [address] [place] [address] Dr. Robert Almendarez MONO # 0.6 103/ul Normal 0.3-0.8 [facility] Comment on above: Performed By: #### C BC #### [facility] [address] [place] [address] Dr. Robert Almendarez Monocytes/100 WBC (Bld) 9.2 % Normal 1.7-12.0 [facility] Comment on above: Performed By: #### C BC #### [facility] [address] [place] [address] Dr. Robert Almendarez NEUT # 3.5 103/ul Normal 1.4-6.5 [facility] Comment on above: Performed By: #### C BC #### [facility] [address] [place] [address] Dr. Robert Almendarez Neutrophils/100 WBC (Bld) 56.3 % Normal 43.0-75.0 [facility] Comment on above: Performed By: #### C BC #### [facility] [address] [place] [address] Dr. Robert Almendarez Platelet mean volume (Bld) [Entitic vol] 11.0 fL Normal 9.5-13.5 [facility] Comment on above: Performed By: #### C BC #### [facility] [address] [place] [address] Dr. Robert Almendarez PLT 265 103/ul Normal 150-450 [facility] Comment on above: Performed By: #### C BC #### [facility] [address] [place] [address] Dr. Robert Almendarez RBC 4.44 106/ul Critically low 4.70-6.10 [facility] Comment on above: Performed By: #### C BC #### [facility] [address] [place], [place] [address] Dr. Robert Almendarez WBC 6.1 103/ul Normal 4.0-11.0 [facility] Comment on above: Performed By: #### C BC #### [facility] [address] [place], [place] [address] ABD/PELVIS WO CONon [...] ALICE TOURETIFFANY Date: 2022-10-13 14:[address] [facility] ER URINE PROFILEon 3 Bilirubin Ql (U) Negative Normal NEGATIVE [facility] Comment on above: Performed By: #### E MITULR UMICRO #### [facility] [address] [address] [address] Robert Almendarez Clarity (U) CLEAR Normal CLEAR [facility] Comment on above: Performed By: #### E OTILIO UMICRO #### [facility] [address] [address] [address] Robert Almendarez Color (U) LT. YELLOW Normal YELLOW [facility] Comment on above: Performed By: #### E OTILIO UMICRO #### [facility] [address] [place] [address] Dr. Robert STRICKLAND A micrscopic examination will be performed if indicated. Normal [facility] Comment on above: Performed By: #### Fallon YAÑEZ UMICRO #### [facility] [address] [address] [address] Robert Almendarez Glucose Ql (U) Negative Normal NEGATIVE [facility] Comment on above: Performed By: #### Fallon YAÑEZ UMICRO #### [facility] [address] [address] [address] Robert Almendarez Hemoglobin Ql (U) TRACE-INTACT Abnormal NEGATIVE [facility] Comment on above: Performed By: #### E RUR, UMICRO #### [facility] [address] [address] [address] Robert Almendarez Ketones Ql (U) Negative Normal NEGATIVE [facility] Comment on above: Performed By: #### E RUR UMICRO #### [facility] [address] [address] [address] Robert Almendarez LEUKOCYTES Negative Normal NEGATIVE [facility] Comment on above: Performed By: #### Fallon RUR UMICRO #### [facility] [address] [place] [address] Dr. Robert Almendarez Nitrite Ql (U) Negative Normal NEGATIVE [facility] Comment on above: Performed By: #### MARIA C HYAES #### [facility] [address] [place] [address] Dr. Robert Almendarez pH (U) 7.0 [pH] Normal 5-9 [facility] Comment on above: Performed By: #### JOSE HAYESRO #### [facility] [address] [place] [address] Dr. Robert Almendarez Protein (U) [Mass/Vol] 30 mg/dL Abnormal NEGAT PAO/ TRACE [facility] Comment on above: Performed By: #### JOSE HAYESRO #### [facility] [address] [place] [address] Dr. Robert Almendarez SPEC GRAVITY 1.010 Normal 1.005-<=1.[address] [place] [address] Comment on above: Performed By: #### JOSE HAYESRO #### [facility] [address] [place] [address] Dr. Robert Almendarez UR MICRO IND INDICATED Normal [facility] Comment on above: Performed By: #### JOSE HAYESRO #### [facility] [address] [place] [address] Dr. Robert Almendarez Urobilinogen Qn (U) 0.2 {Fabiana'U}/dL Normal 0.2 - 1. 0 [facility] Comment on above: Performed By: #### JOSE HAEYSRO #### [facility] [address] [place] [address] Dr. Robert Almendarez PROF 14(COMP METB)on 023 Albumin [Mass/Vol] 3.4 g/dL Normal 3.4-5.0 [facility] Comment on above: Performed By: #### P T, PTT #### [facility] [address] [place] [address] Dr. Robert Almendarez Albumin/Globulin [Mass ratio] 1.0 {ratio} Normal [facility] Comment on above: Performed By: #### P T, PTT #### [facility] [address] [address] [address] Robert Almendarez ALP [Catalytic activity/Vol] 80 U/L Normal 46-116 [facility] Comment on above: Performed By: #### P T, PTT #### [facility] [address] [place] [address] Dr. Robert Almendarez ALT [Catalytic activity/Vol] 25 U/L Normal 16-63 [facility] Comment on above: Performed By: #### P T, PTT #### [facility] [address] [place] [address] Dr. Robert Almendarez Anion gap [Moles/Vol] 10.3 mmol/L Normal [facility] Comment on above: Performed By: #### P T, PTT #### [facility] [address] [place] [address] Dr. Robert Almendarez AST [Catalytic activity/Vol] 17 U/L Normal 15-37 [facility] Comment on above: Performed By: #### P T, PTT #### [facility] [address] [place] [address] Dr. Robert Almendarez Bilirubin [Mass/Vol] 0.3 mg/dL Normal 0.2-1.0 [facility] Comment on above: Performed By: #### P T, PTT #### [facility] [address] [place] [address] Dr. Robert Almendarez Calcium [Mass/Vol] 10.4 mg/dL Critically high 8.5-10.1 [facility] Comment on above: Performed By: #### P T, PTT #### [facility] [address] [place] [address] Dr. Robert Almendarez Chloride [Moles/Vol] 105 mmol/L Normal 98-107 [facility] Comment on above: Performed By: #### P T, PTT #### [facility] [address] [place] [address] Dr. Robert Almendarez CO2 [Moles/Vol] 26.9 mmol/L Normal 21.0-32.0 [facility] Comment on above: Performed By: #### P T, PTT #### [facility] [address] [address] [address] Robert Almendarez Creatinine [Mass/Vol] 1.43 mg/dL Critically high 0.70-1.30 [facility] Comment on above: Performed By: #### P T, PTT #### [facility] [address] [address] [address] Robert Almendarez EGFR-AF DANISH >60 Normal >=60 [facility] Comment on above: Performed By: #### P T, PTT #### [facility] [address] [address] [address] Robert Almendarez EGFR-NON AF DANISH 50 mL/min/1.73m2 Critically low >=60 [facility] Comment on above: Performed By: #### P T, PTT #### [facility] [address] [place] [address] Dr. Robert Almendarez Globulin (S) [Mass/Vol] 3.5 g/dL Normal [facility] Comment on above: Performed By: #### P T, PTT #### [facility] [address] [address] [address] Robert Almendarez Glucose [Mass/Vol] 168 mg/dL Critically high 74-106 [facility] Comment on above: Performed By: #### P T, PTT #### [facility] [address] [address] [address] Robert Almendarez Potassium [Moles/Vol] 4.2 mmol/L Normal 3.5-5.1 [facility] Comment on above: Performed By: #### P T, PTT #### [facility] [address] [address] [address] Robert Almendarez Protein [Mass/Vol] 6.9 g/dL Normal 6.4-8.2 [facility] Comment on above: Performed By: #### P T, PTT #### [facility] [address] [address] [address] Robert Almendarez Sodium [Moles/Vol] 138 mmol/L Normal 136-145 [facility] Comment on above: Performed By: #### P T, PTT #### [facility] [address] [place] [address] Dr. Robert Almendarez Urea nitrogen [Mass/Vol] 23.0 mg/dL Critically high 7.0-18.0 [facility] Comment on above: Performed By: #### P T, PTT #### [facility] [address] [place] [address] Dr. Robert Almendarez Urea nitrogen/Creatinine [Mass ratio] 16.1 mg/mg Normal [facility] Comment on above: Performed By: #### P T, PTT #### [facility] [address] [place] [address] Dr. Robert Almendarez PROTIMEon 10-13-2022 INR Coag (PPP) [Relative time] 1.00 {INR} Normal [facility] Comment on above: Performed By: #### P T, PTT #### [facility] [address] [place] [address] Dr. Robert Almendarez INR GUIDELINES SEE BELOW Normal [facility] Comment on above: Result Comment: DAVID RED INR: 2.0 - 3.0 CONDITIONS NOT LISTED BELOW 2.5 - 3.5 FOR PROSTHETIC HEART VALVE REPLACEMENT 2.5 - 3.5 RECURRENT THROMBOSIS Performed By: #### P T, PTT #### [facility] [address] [place] [address] Dr. Robert Almendarez PT Coag (PPP) [Time] 10.6 s Normal 9.0-11.6 [facility] Comment on above: Performed By: #### P T, PTT #### [facility] [address] [place] [address] Dr. Robert Almendarez PTTon 10-13-2022 aPTT Coag (Bld) [Time] 25.4 s Normal 22.3-36.2 [facility] Comment on above: Performed By: #### P T, PTT #### [facility] [address] [place] [address] Dr. Robert Almendarez URINE MICROSCOPIC ONLYon BACTERIA NONE SEEN Normal NONE SEEN [facility] Comment on above: Performed By: #### E OTILIO, UMICRO #### [facility] [address] [place] [address] Dr. Robert Almendarez Bacteria identified Cx Nom (U) NOT INDICATED Normal [facility] Comment on above: Performed By: #### Fallon YAÑEZ UMICRO #### [facility] [address] [place] [address] Dr. Robert Almendarez CAST NONE SEEN Normal NONE SEEN [facility] Comment on above: Performed By: #### Fallon YAÑEZ UMICRO #### [facility] [address] [place] [address] Dr. Robert Almendarez Crystals LM Nom (Urine sed) NONE SEEN Normal NONE SEEN [facility] Comment on above: Performed By: #### Fallon YAÑEZ UMICRO #### [facility] [address] [place] [address] Dr. Robert Almendarez Epithelial cells LM Ql (Urine sed) RARE Normal NONE SEEN /RARE [facility] Comment on above: Performed By: #### Fallon YAÑEZ UMICRO #### [facility] [address] [place] [address] Dr. Robert Almendarez MUCOUS NONE SEEN Normal NONE SEEN [facility] Comment on above: Performed By: #### Fallon YAÑEZ UMICRO #### [facility] [address] [place] [address] Dr. Robert Almendarez RBC 0-2 Normal 0-[address] [facility] Comment on above: Performed By: #### Fallon YAÑEZ UMICRO #### [facility] [address] [place] [address] Dr. Robert Almendarez WBC 0-2 Abnormal NONE SEEN [facility] Comment on above: Performed By: #### Fallon YAÑEZ UMICRO #### [facility] [address] [place] [address] Dr. Robert Almendarez XR CHEST 1 Von [...] FLOYD KHUSHBOO Date: 2022-10-13 12:[address] [facility] Echo 2D w doppler w color co mpleteon 07-11-2022 [facility] Transthoracic Echocardiography Report (TTE) Patient Name LAURA Date of Study 07/11/2022 PIOTR A Date of 1960 Gender Male Age 61 year(s) Race Room Number Height: 72 inch, 182.88 cm Corporate ID [id number] Weight: 240 pounds, 108.9 kg # Patient Acct [id number] BSA: 2.3 m^2 BMI: 32.55 # kg/m^2 MR # [id number] Hospital Mortician Dionna Barriga Interpreting Physician Alice Mars Fellow Referring Nurse Practitioner Interpreting Referring Physician Alma Kan Fellow Type of Study TTE procedure:2D Echocardiogram, M-Mode, Doppler, Color Doppler. Procedure Date Date: 07/11/2022 Start: 10:46 AM Study Location: [facility] Indications:Preop cardiac evaluation. History / Tech. [...] velocity:0.11 m/s Lateral Wall E/E':9.2 MHPN MHT [facility] Alice Mars MD - 07/11/2022 [facility] Transthoracic Echocardiography Report (TTE) Patient Name LAURA Date of Study 07/11/2022 PIOTR A Date of 1960 Gender Male Age 61 year(s) Race Room Number Height: 72 inch, 182.88 cm Corporate ID [id number] Weight: 240 pounds, 108.9 kg # Patient Acct [id number] BSA: 2.3 m^2 BMI: 32.55 # kg/m^2 MR # [id number] Hospital Mortician Dionna Barriga Interpreting Physician Alice Mars Fellow Referring Nurse Practitioner Interpreting Referring Physician Alma Kan Type of Study TTE procedure:2D Echocardiogram, M-Mode, Doppler, Color Doppler. Procedure Date Date: 07/11/2022 Start: 10:46 AM Study Location: [facility] Indications:Preop cardiac evaluation. History / Tech. [...] Wall E' velocity:0.11 m/s Lateral Wall E/E':9.2 [facility] Work Phone: Echo 2D w doppler w color co mpleteOrdered By: Alice Mars on 07-11-2022 [facility] Work Phone: CBC with Auto Differentialon 06-25-2022 Absolute Eos # 0.07 [facility] Absolute Immature Granulocyte [facility] Absolute Lymph # 1.89 [facility] Absolute [place] # 0.62 [facility] Basophils (Bld) [#/Vol] 0.05 10*3/uL [facility] Basophils/100 WBC (Bld) 1 % 0 - 2 % B ON [facility] Eosinophils/100 WBC (Bld) 1 % 1 - 4 % [facility] Hematocrit (Bld) [Volume fraction] 39.3 % Low 40.7 - 50.3 % [facility] Hemoglobin (Bld) [Mass/Vol] 12.9 g/dL Low 13.0 - 17.0 g/dL [facility] Immature granulocytes/100 WBC (Bld) 0 % 0 [facility] Interpretation and review of laboratory results Abnormal [facility] Lymphocytes/100 WBC (Bld) 27 % 24 - 43 % [facility] MCH (RBC) [Entitic mass] 30.3 pg 25.2 - 33.5 pg [facility] MCHC (RBC) [Mass/Vol] 32.8 g/dL 28.4 - 34.8 g/dL [facility] MCV (RBC) [Entitic vol] 92.3 fL 82.6 - 102.9 fL [facility] Monocytes/100 WBC (Bld) 9 % 3 - 12 % B ON [facility] NRBC Automated 0.0 0.0 per 100 WBC [facility] Platelet distribution width (Bld) [Ratio] 11.7 % Low 11.8 - 14.4 % [employer] Platelet mean volume (Bld) [Entitic vol] 10.9 fL 8.1 - 13.5 fL [employer] Platelets (Bld) [#/Vol] 236 10*3/uL [facility] RBC (Bld) [#/Vol] 4.26 10*6/uL 4.21 - 5.7 7 m/uL [employer] [facility] Segmented neutrophils/100 WBC (Bld) 62 % 36 - 65 % [employer] [facility] Segs Absolute 4.44 [employer] [facility] [place] FFT WBC (Bld) [#/Vol] 7.1 10*3/uL [facility] [employer] [facility] EKG 12 Leadon 06-25-2022 Atrial Rate 60 BPM [employer] Work Phone: P [place] 42 degrees [employer] Work Phone: P-R Interval 134 ms [employer] Work Phone: Q-T Interval 386 ms [employer] Work Phone: QRS Duration 94 ms [employer] Work Phone: QTc Calculation (Bazett) 386 ms [employer] Work Phone: R [place] -2 degrees [employer] Work Phone: T [place] 23 degrees [employer] Work Phone: Ventricular Rate 60 BPM [employer] Work Phone: Normal sinus rhythm Can not rule out septal infarction, age undetermined. Abnormal ECG When compared with ECG of 05-JUN-2021 18:44, Nonspecific T wave abnormality, improved in Inferior leads Minimal criteria for septal infarction is now present. Confirmed by Alma Kan MD ([id number]) on 06/25/2022 8:14:36 PM [facility] RADIOLOGY Alma Kan MD - 06/25/2022 Normal sinus rhythm Can not rule out septal infarction, age undetermined. Abnormal ECG When compared with ECG of 05-JUN-2021 18:44, Nonspecific T wave abnormality, improved in Inferior leads Minimal criteria for septal infarction is now present. Confirmed by Alma Kan MD ([id number]) on 06/25/2022 8:14:36 PM [facility] Work Phone: [facility] Work Phone: Albuminon 05-24-2022 Albumin [Mass/Vol] 4 g/dL 3.5 - 5.2 g/dL [facility] CALCIUM,TIMED URon Calcium [Mass/Vol] 9.4 mg/dL [facility] Calcium, Urine 122 [facility] Hours Collected 24 h [facility] Volume 1300 mL [facility] Calciumon 05-24-2022 Calcium [Mass/Vol] 11.7 mg/dL High 8.6 - 10. 4 mg/dL [facility] Cortisol Totalon 05-24-2022 Cortisol 10.4 ug/dL 2.7 - 18.4 ug/dL [facility] Comment on above: Cortisol Reference Range: AM 6.0-18.4 PM 2.7-10.5 Cortisol Collection Info Unknown [facility] No Panel Informationon 05-24 Interpretation and review of laboratory results Abnormal [facility] PTH, [place] 05-24-2022 Interpretation and review of laboratory results Abnormal [facility] Pth Intact 107.7 pg/mL High 14.0 - 72.0 pg/mL [facility] Comment on above: SAMPLES FROM PATIENT S ROUTINELY RECEIVING HIGH DOSE BIOTIN THERAPY MAY SHOW FALSELY DEPRESSED RESULTS. ADDITIONAL INFORMATION MAY BE REQUIRED FOR DIAGNOSIS. [facility] Phosphoruson 05-24-2022 Phosphate [Mass/Vol] 1.5 mg/dL Low 2.5 - 4 .5 mg/dL [facility] US RENAL COMPLETEon 05-20-20 Appearance (U) Unremarkable ultrasound the kidneys. Unremarkable appearance urinary bladder with 309 mL postvoid residual volume. RECOMMENDATIONS: Unavailable [facility] CONSOLIDATED EXAMINATION: RETROPERITONEAL ULTRASOUND OF THE KIDNEYS AND URINARY BLADDER 05/20/2022 COMPARISON: None HISTORY: ORDERING SYSTEM PROVIDED HISTORY: Incomplete bladder emptying TECHNOLOGIST PROVIDED HISTORY: This procedure can be scheduled via [employer]. Access your [employer] account by visiting [email or web address]. Incomplete bladder emptying, chronic kidney disease 3 FINDINGS: Kidneys: The right kidney measures 11.4 cm in length and the left kidney measures 11.3 cm in length. Kidneys demonstrate normal cortical echogenicity. No evidence of hydronephrosis or intrarenal stones. Bladder: Unremarkable appearance urinary bladder with prevoid volume 594 mL. Postvoid residual 309 mL. [facility] CONSOLIDATED You Null DO - 05/20/2022 EXAMINATION: RETROPERITONEAL ULTRASOUND OF THE KIDNEYS AND URINARY BLADDER 05/20/2022 COMPARISON: None HISTORY: ORDERING SYSTEM PROVIDED HISTORY: Incomplete bladder emptying TECHNOLOGIST PROVIDED HISTORY: This procedure can be scheduled via [employer]. Access your [employer] account by visiting [email or web address]. Incomplete bladder emptying, chronic kidney disease 3 [...] 309 mL postvoid residual volume. RECOMMENDATIONS: Unavailable [employer] Phone: Radiology Study observation (narrative) [employer] Phone: US RENAL COMPLETEOrdered By: You Null on 05-20-2022 [employer] Phone: CBC AUTO DIFFon 05-14-2022 BASO # 0.0 103/ul Normal 0.0-0.1 [facility] Comment on above: Performed By: #### P T, PTT #### [facility] [address] [address] [address] Robert Almendarez Basophils/100 WBC (Bld) 0.6 % Normal 0.2-2.0 [facility] Comment on above: Performed By: #### P T, PTT #### [facility] [address] [place] [address] Dr. Robert Almendarez EO # 0.1 103/ul Normal 0.0-0.7 [facility] Comment on above: Performed By: #### P T, PTT #### [facility] [address] [place] [address] Dr. Robert Almendarez Eosinophils/100 WBC (Bld) 1.0 % Normal 0.9-7.0 [facility] Comment on above: Performed By: #### P T, PTT #### [facility] [address] [place] [address] Dr. Robert Almendarez Erythrocyte distribution width (RBC) [Ratio] 11.9 % Normal 11.0-15.0 [facility] Comment on above: Performed By: #### P T, PTT #### [facility] [address] [place] [address] Dr. Robert Almendarez Hematocrit (Bld) [Volume fraction] 40.1 % Critically low 42.0-54.0 [facility] Comment on above: Performed By: #### P T, PTT #### [facility] [address] [place] [address] Dr. Robert Almendarez Hemoglobin (Bld) [Mass/Vol] 13.6 g/dL Critically low 14.0-18.0 [facility] Comment on above: Performed By: #### P T, PTT #### [facility] [address] [place] [address] Dr. Robert Almendarez IG # 0.02 10e3/ul Normal 0.00-0.03 [facility] Comment on above: Performed By: #### P T, PTT #### [facility] [address] [place] [address] Dr. Robert Almendarez IG % 0.3 % Normal 0.0-0.5 [facility] Comment on above: Performed By: #### P T, PTT #### [facility] [address] [place] [address] Dr. Robert Almendarez LYMPH # 2.4 103/ul Normal 1.2-3.8 [facility] Comment on above: Performed By: #### P T, PTT #### [facility] [address] [place] [address] Dr. Robert Almendarez Lymphocytes/100 WBC (Bld) 34.0 % Normal 20.5-60.0 [facility] Comment on above: Performed By: #### P T, PTT #### [facility] [address] [place] [address] Dr. Robert Almendarez MANUAL DIFF REQ NO Normal [facility] Comment on above: Performed By: #### P T, PTT #### [facility] [address] [place] [address] Dr. Robert Almendarez MCH (RBC) [Entitic mass] 29.7 pg Normal 25.9-34.0 [facility] Comment on above: Performed By: #### P T, PTT #### [facility] [address] [place] [address] Dr. Robert Almendarez MCHC (RBC) [Mass/Vol] 33.9 g/dL Normal 29.9-35.2 [facility] Comment on above: Performed By: #### P T, PTT #### [facility] [address] [place] [address] Dr. Robert Almendarez MCV (RBC) [Entitic vol] 87.6 fL Normal 80.0-94.0 [facility] Comment on above: Performed By: #### P T, PTT #### [facility] [address] [place] [address] Dr. Robert Almendarez MONO # 0.8 103/ul Normal 0.3-0.8 [facility] Comment on above: Performed By: #### P T, PTT #### [facility] [address] [place] [address] Dr. Robert Almendarez Monocytes/100 WBC (Bld) 11.2 % Normal 1.7-12.0 [facility] Comment on above: Performed By: #### P T, PTT #### [facility] [address] [place] [address] Dr. Robert Almendarez NEUT # 3.7 103/ul Normal 1.4-6.5 [facility] Comment on above: Performed By: #### P T, PTT #### [facility] [address] [address] [address] Robert Almendarez Neutrophils/100 WBC (Bld) 52.9 % Normal 43.0-75.0 [facility] Comment on above: Performed By: #### P T, PTT #### [facility] [address] [address] [address] Robert Almendarez Platelet mean volume (Bld) [Entitic vol] 10.4 fL Normal 9.5-13.5 [facility] Comment on above: Performed By: #### P T, PTT #### [facility] [address] [place] [address] Dr. Robert Almendarez PLT 260 103/ul Normal 150-450 [facility] Comment on above: Performed By: #### P T, PTT #### [facility] [address] [place] [address] Dr. Robert Almendarez RBC 4.58 106/ul Critically low 4.70-6.10 [facility] Comment on above: Performed By: #### P T, PTT #### [facility] [address] [place] [address] Dr. Robert Almendarez WBC 6.9 103/ul Normal 4.0-11.0 [facility] Comment on above: Performed By: #### P T, PTT #### [facility] [address] [place] [address] Dr. Robert Almendarez PHOSPHORUSon 05-14-2022 Phosphate [Mass/Vol] 1.8 mg/dL Critically low 2.6-4.7 [facility] Comment on above: Performed By: #### P T, PTT #### [facility] [address] [place] [address] Dr. Robert Almendarez PROF 14(COMP METB)on Albumin [Mass/Vol] 4.0 g/dL Normal 3.4-5.0 [facility] Comment on above: Performed By: #### P T, PTT #### [facility] [address] [address] [address] Robert Almendarez Albumin/Globulin [Mass ratio] 1.1 {ratio} Normal [facility] Comment on above: Performed By: #### P T, PTT #### [facility] [address] [address] [address] Robert Almendarez ALP [Catalytic activity/Vol] 85 U/L Normal 46-116 [facility] Comment on above: Performed By: #### P T, PTT #### [facility] [address] [address] [address] Robert Almendarez ALT [Catalytic activity/Vol] 24 U/L Normal 16-63 [facility] Comment on above: Performed By: #### P T, PTT #### [facility] [address] [place] [address] Dr. Robert Almendarez Anion gap [Moles/Vol] 9.0 mmol/L Normal [facility] Comment on above: Performed By: #### P T, PTT #### [facility] [address] [address] [address] Robert Almendarez AST [Catalytic activity/Vol] 14 U/L Critically low 15-37 [facility] Comment on above: Performed By: #### P T, PTT #### [facility] [address] [place] [address] Dr. Robert Almendarez Bilirubin [Mass/Vol] 0.5 mg/dL Normal 0.2-1.0 [facility] Comment on above: Performed By: #### P T, PTT #### [facility] [address] [address] [address] Robert Almendarez Calcium [Mass/Vol] 11.0 mg/dL Critically high 8.5-10.1 [facility] Comment on above: Performed By: #### P T, PTT #### [facility] [address] [address] [address] Robert Almendarez Chloride [Moles/Vol] 105 mmol/L Normal 98-107 [facility] Comment on above: Performed By: #### P T, PTT #### [facility] [address] [address] [address] Robert Almendarez CO2 [Moles/Vol] 28.9 mmol/L Normal 21.0-32.0 [facility] Comment on above: Performed By: #### P T, PTT #### [facility] [address] [address] [address] Robert Almendarez Creatinine [Mass/Vol] 1.43 mg/dL Critically high 0.70-1.30 [facility] Comment on above: Performed By: #### P T, PTT #### [facility] [address] [address] [address] Robert Almendarez EGFR-AF DANISH >60 Normal >=60 [facility] Comment on above: Performed By: #### P T, PTT #### [facility] [address] [address] [address] Robert Almendarez EGFR-NON AF DANISH 50 mL/min/1.73m2 Critically low >=60 [facility] Comment on above: Performed By: #### P T, PTT #### [facility] [address] [address] [address] Robert Almendarez Globulin (S) [Mass/Vol] 3.5 g/dL Normal [facility] Comment on above: Performed By: #### P T, PTT #### [facility] [address] [address] [address] Robert Almendarez Glucose [Mass/Vol] 147 mg/dL Critically high 74-106 [facility] Comment on above: Performed By: #### P T, PTT #### [facility] [address] [address] [address] Robert Almendarez Potassium [Moles/Vol] 3.9 mmol/L Normal 3.5-5.1 [facility] Comment on above: Performed By: #### P T, PTT #### [facility] [address] [address] [address] Robert Almendarez Protein [Mass/Vol] 7.5 g/dL Normal 6.4-8.2 [facility] Comment on above: Performed By: #### P T, PTT #### [facility] [address] [place], [place] [address] Dr. Robert Almendarez Sodium [Moles/Vol] 139 mmol/L Normal 136-145 [facility] Comment on above: Performed By: #### P T, PTT #### [facility] [address] [place], [place] [address] Dr. Robert Almendarez Urea nitrogen [Mass/Vol] 27.0 mg/dL Critically high 7.0-18.0 [facility] Comment on above: Performed By: #### P T, PTT #### [facility] [address] [place], [place] [address] Dr. Robert Almendarez Urea nitrogen/Creatinine [Mass ratio] 18.9 mg/mg Normal [facility] Comment on above: Performed By: #### P T, PTT #### [facility] [address] [address] [address] Robert Almendarez Basic Metabolic Panelon 12-2 Anion gap [Moles/Vol] 10 mmol/L 9 - 17 mmol/L [facility] Calcium [Mass/Vol] 12.0 mg/dL High 8.6 - 10. 4 mg/dL [facility] Chloride [Moles/Vol] 103 mmol/L 98 - 10 7 mmol/L [facility] CO2 [Moles/Vol] 25 mmol/L 20 - 31 mmol/L [facility] Creatinine [Mass/Vol] 1.39 mg/dL High 0.70 - 1.20 mg/dL [facility] GFR/1.73 sq M.predicted MDRD (S/P/Bld) [Vol rate/Area] 57 mL/min/{1.73_m2} Low - PINF [facility] Comment on above: Effective Feb 24, 2022 [...] 171 mg/dL High 70 - 99 mg/dL [facility] Interpretation and review of laboratory results Abnormal [facility] Potassium [Moles/Vol] 4.1 mmol/L 3.7 - 5.3 mmol/L [facility] Sodium [Moles/Vol] 138 mmol/L 135 - 144 mmol/L [facility] Urea nitrogen (BldV) [Mass/Vol] 25 mg/dL High 8 - 23 mg/dL [facility] Urea nitrogen/Creatinine (Bld) [Mass ratio] 18 9 - 20 [facility] [place] FFT PSA Screeningon 05-13-2022 [facility] Basic Metabolic Panelon 02-23 Anion gap [Moles/Vol] 6 mmol/L Low 9 - 17 mmol/L [facility] Calcium [Mass/Vol] 10.6 mg/dL High 8.6 - 10. 4 mg/dL [facility] Chloride [Moles/Vol] 104 mmol/L 98 - 10 7 mmol/L [facility] CO2 [Moles/Vol] 25 mmol/L 20 - 31 mmol/L [facility] Creatinine [Mass/Vol] 1.31 mg/dL High 0.70 - 1.20 mg/dL [facility] GFR/1.73 sq M.predicted MDRD (S/P/Bld) [Vol rate/Area] - PINF [facility] Comment on above: Effective Feb 24, [...] 202 mg/dL High 70 - 99 mg/dL [facility] Interpretation and review of laboratory results Abnormal [facility] Potassium [Moles/Vol] 4.1 mmol/L 3.7 - 5.3 mmol/L [facility] Sodium [Moles/Vol] 135 mmol/L 135 - 144 mmol/L [facility] Urea nitrogen (BldV) [Mass/Vol] 27 mg/dL High 8 - 23 mg/dL [facility] Urea nitrogen/Creatinine (Bld) [Mass ratio] 21 High 9 - 20 [facility] A1C with Estimated Average G marcos 01-09-2022 Glucose [Mass/Vol] 160 mg/dL Normal [facility] Comment on above: Result Comment: PERF ORMED BY: [place] [address] PATHOLOGIST SPED TEACHER YURI ORTA M.D. Performed By: #### B RN PAIN MANAGEMENT, BMP, LIPID, CBC, A1C WT eA #### [id number] [facility] HbA1c (Bld) [Mass fraction] 7.2 % High 4.3-5.6 [facility] Comment on above: Result Comment: Incr eased risk for diabetes: 5.7 - 6.4 diabetes: >6.4 glycemic control for adults with diabetes: <7.0 Performed By: #### B RN PAIN MANAGEMENT, BMP, LIPID, CBC, A1C WTH eA #### [address] B-Type Natriuretic Peptideon 01-09-2022 Natriuretic peptide B (Bld) [Mass/Vol] 90.0 pg/mL Normal 5-100 [facility] Comment on above: Result Comment: PERF ORMED BY: [place] [address] PATHOLOGIST SPED TEACHER YURI ORTA M.D. Performed By: #### B RN PAIN MANAGEMENT, BMP, LIPID, CBC, A1C WTH eA #### [id number] [facility] Basic Metabolic Panelon 08- Calcium [Mass/Vol] 11.0 mg/dL High 8.2-10.2 [facility] Comment on above: Performed By: #### B RN PAIN MANAGEMENT, BMP, LIPID, CBC, A1C WTH eA #### [address] [place] [address] [place] Chloride [Moles/Vol] 106 mmol/L Normal 95-114 [facility] Comment on above: Performed By: #### B RN PAIN MANAGEMENT, BMP, LIPID, CBC, A1C WTH eA #### [facility] [address] CO2 [Moles/Vol] 25.5 mmol/L Normal 22.0-30.0 [facility] Comment on above: Performed By: #### B RN PAIN MANAGEMENT, BMP, LIPID, CBC, A1C WTH eA #### [facility] [address] Creatinine [Mass/Vol] 1.25 mg/dL Normal 0.64-1.27 [facility] Comment on above: Performed By: #### B RN PAIN MANAGEMENT, BMP, LIPID, CBC, A1C WTH eA #### [address] Estimated GFR ( Lucia > 60 [facility] Comment on above: Result Comment: GFR estimated reference range: According to KDOQI guidelines, <60 ml/min/1.73m2 is sufficient to diagnose a patient with chronic kidney disease. Performed By: #### B RN PAIN MANAGEMENT, BMP, LIPID, CBC, A1C WTH eA #### [address] Estimated GFR (Non- Am 59 [facility] Comment on above: Performed By: #### B RN PAIN MANAGEMENT, BMP, LIPID, CBC, A1C WTH eA #### [address] Glucose [Mass/Vol] 120 mg/dL High 70-100 [facility] Comment on above: Result Comment: [place] Glucose Reference Range is dependent on time and content of last meal. Glucose of more than 200 mg/dL in a nonstressed, ambulatory subject supports the diagnosis of Diabetes Mellitus. ADA recommended reference range Performed By: #### B RN PAIN MANAGEMENT, BMP, LIPID, CBC, A1C WTH eA #### [address] Potassium [Moles/Vol] 4.3 mmol/L Normal 3.5-5.1 [facility] Comment on above: Performed By: #### B RN PAIN MANAGEMENT, BMP, LIPID, CBC, A1C WT eA #### [facility] [address] Sodium [Moles/Vol] 136 mmol/L Normal 136-146 [facility] Comment on above: Performed By: #### B RN PAIN MANAGEMENT, BMP, LIPID, CBC, A1C WT eA #### [facility] [address] Urea nitrogen [Mass/Vol] 22 mg/dL Normal 9-23 [facility] Comment on above: Performed By: #### B RN PAIN MANAGEMENT, BMP, LIPID, CBC, A1C WT eA #### [facility] [address] Basophils Auto (Bld) [#/Vol] Ordered By: Alma Kan on 01-09-2022 Basophils (Bld) [#/Vol] 0.0 10*3/uL 0.0-0.2 [facility] Basophils/100 WBC Auto (Bld) Ordered By: Alma Kan on 01-09-2022 Basophils/100 WBC (Bld) 0.3 % . [facility] Blood hemoglobin measurement (mass/volume)Ordered By: Alma Kan on 01-09-2022 Hemoglobin (Bld) [Mass/Vol] 13.6 g/dL 13.0-17.0 [facility] Blood leukocytes automated c ount (number/volume)Ordered By: Alma Kan on 01-09-2022 WBC (Bld) [#/Vol] 7.7 10*3/uL 4.5-11.0 [facility] Cholesterol [Mass/volume] in Serum or PlasmaOrdered By: Alma Kan on 01-09-2022 Cholesterol [Mass/Vol] 157 mg/dL 140-[address] [facility] Comment on above: Chol less than 200 m g/dl low risk Chol 201-239 mg/dl borderline risk Chol 240 mg/dl and greater high risk Cholesterol in LDL Calc [Mas s/Vol]Ordered By: Alma Kan on 01-09-2022 Cholesterol in LDL [Mass/Vol] 86 mg/dL 0-100 [facility] Comment on above: LDL ATP III CLASSIFI CATION LDL less than 100 mg/dL Optimal LDL 100-129 mg/dL Near or above optimal LDL 130-159 mg/dL Borderline high LDL 160-189 mg/dL High LDL greater than 189 mg/dL Very high Cholesterol in VLDL Calc [Ma ss/Vol]Ordered By: Alma Kan on 01-09-2022 Cholesterol in VLDL [Mass/Vol] 45 mg/dL [facility] Complete Blood Count Auto Di ffon 01-09-2022 Basophils (Bld) [#/Vol] 0.0 10*3/uL Normal 0.0-0.2 [facility] Comment on above: Result Comment: PERF ORMED BY: [place] [address] PATHOLOGIST SPED TEACHER YURI ORTA M.D. Performed By: #### B RN PAIN MANAGEMENT, BMP, LIPID, CBC, A1C WTH eA #### [address] Basophils/100 WBC (Bld) 0.3 % Normal . [facility] Comment on above: Performed By: #### B RN PAIN MANAGEMENT, BMP, LIPID, CBC, A1C WTH eA #### [address] Eosinophils (Bld) [#/Vol] 0.1 10*3/uL Normal 0.0-0.45 [facility] Comment on above: Performed By: #### B RN PAIN MANAGEMENT, BMP, LIPID, CBC, A1C WTH eA #### [address] Eosinophils/100 WBC (Bld) 1.9 % Normal . [facility] Comment on above: Performed By: #### B RN PAIN MANAGEMENT, BMP, LIPID, CBC, A1C WTH eA #### [address] Erythrocyte distribution width (RBC) [Ratio] 13.0 % Normal 12.0-14.8 [facility] Comment on above: Performed By: #### B RN PAIN MANAGEMENT, BMP, LIPID, CBC, A1C WTH eA #### [address] Hematocrit (Bld) [Volume fraction] 40.8 % Normal 38.8-50.0 [facility] Comment on above: Performed By: #### B RN PAIN MANAGEMENT, BMP, LIPID, CBC, A1C WTH eA #### [address] Hemoglobin (Bld) [Mass/Vol] 13.6 g/dL Normal 13.0-17.0 [facility] Comment on above: Performed By: #### B RN PAIN MANAGEMENT, BMP, LIPID, CBC, A1C WTH eA #### [address] Lymphocytes (Bld) [#/Vol] 3.0 10*3/uL Normal 1.00-4.8 [facility] Comment on above: Performed By: #### B RN PAIN MANAGEMENT, BMP, LIPID, CBC, A1C WTH eA #### [address] Lymphocytes/100 WBC (Bld) 38.9 % Normal . [facility] Comment on above: Performed By: #### B RN PAIN MANAGEMENT, BMP, LIPID, CBC, A1C WTH eA #### [address] MCH (RBC) [Entitic mass] 30.1 pg Normal 27.5-35.2 [facility] Comment on above: Performed By: #### B RN PAIN MANAGEMENT, BMP, LIPID, CBC, A1C WTH eA #### [address] MCV (RBC) [Entitic vol] 90.2 fL Normal 83.5-101 F [facility] Comment on above: Performed By: #### B RN PAIN MANAGEMENT, BMP, LIPID, CBC, A1C WTH eA #### [address] Mean Corpuscular HGB Conc 33.3 g/dL Normal 32.5-35.6 [facility] Comment on above: Performed By: #### B RN PAIN MANAGEMENT, BMP, LIPID, CBC, A1C WTH eA #### [address] [address] [place] [address] [place] Monocytes (Bld) [#/Vol] 0.7 10*3/uL Normal 0.0-0.8 [facility] Comment on above: Performed By: #### B RN PAIN MANAGEMENT, BMP, LIPID, CBC, A1C WTH eA #### [address] Monocytes/100 WBC (Bld) 8.6 % Normal . F [facility] Comment on above: Performed By: #### B RN PAIN MANAGEMENT, BMP, LIPID, CBC, A1C WTH eA #### [place] [address] [place] Neutrophils (Bld) [#/Vol] 3.9 10*3/uL Normal 1.8-7.7 [facility] Comment on above: Performed By: #### B RN PAIN MANAGEMENT, BMP, LIPID, CBC, A1C WTH eA #### [address] Neutrophils/100 WBC (Bld) 50.3 % Normal . [facility] Comment on above: Performed By: #### B RN PAIN MANAGEMENT, BMP, LIPID, CBC, A1C WTH eA #### [place] [address] [place] Nucleated RBC/100 WBC (Bld) [Ratio] 0.1 % Normal 0-0.5 [facility] Comment on above: Performed By: #### B RN PAIN MANAGEMENT, BMP, LIPID, CBC, A1C WTH eA #### [place] [address] [place] Platelet mean volume (Bld) [Entitic vol] 9.4 fL Normal 6.6-10.1 [facility] Comment on above: Performed By: #### B RN PAIN MANAGEMENT, BMP, LIPID, CBC, A1C WTH eA #### [place] [address] [place] Platelets (Bld) [#/Vol] 306 10*3/uL Normal 150-450 [facility] Comment on above: Performed By: #### B RN PAIN MANAGEMENT, BMP, LIPID, CBC, A1C WTH eA #### [address] [place] [address] [place] RBC (Bld) [#/Vol] 4.52 10*6/uL Normal 3.90-5.60 [facility] Comment on above: Performed By: #### B RN PAIN MANAGEMENT, BMP, LIPID, CBC, A1C WTH eA #### [facility] [address] [place] [address] [place] WBC (Bld) [#/Vol] 7.7 10*3/uL Normal 4.5-11.0 [facility] Comment on above: Performed By: #### B RN PAIN MANAGEMENT, BMP, LIPID, CBC, A1C WT eA #### [facility] [address] Creatinine and Glomerular fi ltration rate.predicted panel (S/P/Bld)Ordered By: Alma Kan on 01-09-2022 Creatinine [Mass/Vol] 1.25 mg/dL 0.64-1.27 [facility] Eosinophils Auto (Bld) [#/Vo l]Ordered By: Alma Kan on 01-09-2022 Eosinophils (Bld) [#/Vol] 0.1 10*3/uL 0.0-0.45 [facility] Eosinophils/100 WBC Auto (Bl d)Ordered By: Alma Kan on 01-09-2022 Eosinophils/100 WBC (Bld) 1.9 % . [facility] Erythrocyte distribution wid th Auto (RBC) [Ratio]Ordered By: Alma Kan on 01-09-2022 Erythrocyte distribution width (RBC) [Ratio] 13.0 % 12.0-14.8 [facility] Estimated glomerular filtrat ion rate (GFR) non- AmericanOrdered By: Alma Kan on 01-09-2022 GFR/1.73 sq M.predicted among non-blacks MDRD (S/P/Bld) [Vol rate/Area] 59 mL/Min [facility] Glucose mean value [Mass/vol ume] in Blood Estimated from glycated hemoglobinOrdered By: Alma Kan on 01-09-2022 Average glucose Estimated from glycated hemoglobin (Bld) [Mass/Vol] 160 mg/dL [facility] Hematocrit Auto (Bld) [Volum e fraction]Ordered By: Alma Kan on 01-09-2022 Hematocrit (Bld) [Volume fraction] 40.8 % 38.8-50.0 [facility] Hemoglobin A1c percentageOrd ered By: Alma Kan on 01-09-2022 HbA1c (Bld) [Mass fraction] 7.2 % 4.3-5.6 [facility] Comment on above: Increased risk for d iabetes: 5.7 - 6.4 diabetes: >6.4 glycemic control for adults with diabetes: <7.0 Laboratory - Chemistry and C hemistry - challengeOrdered By: Alma Kan on 01-09-2022 Natriuretic peptide B (Bld) [Mass/Vol] 90.0 pg/mL 5-100 [facility] Laboratory - Hematology and Cell countsOrdered By: Alma Kan on 01-09-2022 Nucleated RBC/100 WBC (Bld) [Ratio] 0.1 % 0-0.5 [facility] Lipid Panelon 01-09-2022 Cholesterol [Mass/Vol] 157 mg/dL Normal 140-[address] [facility] Comment on above: Result Comment: Chol less than 200 mg/dl low risk Chol 201-239 mg/dl borderline risk Chol 240 mg/dl and greater high risk Performed By: #### B RN PAIN MANAGEMENT, BMP, LIPID, CBC, A1C WT eA #### [facility] [address] Cholesterol in HDL [Mass/Vol] 26 mg/dL Low 29-71 [facility] Comment on above: Result Comment: HDL CHOL ATP-III CLASSIFICATION Cardiovascular Risk HDL > or equal to 60 mg/dL LOW HDL < 40 mg/dL HIGH Performed By: #### B RN PAIN MANAGEMENT, BMP, LIPID, CBC, A1C WT eA #### [facility] [address] [place] [id number] [facility] Cholesterol.total/Shi sterol in HDL [Mass ratio] 6.0 {ratio} Normal <5.0 [facility] Comment on above: Result Comment: PERF ORMED BY: [facility] [address] [place] [address] PATHOLOGIST SPED TEACHER YURI ORTA M.D. Performed By: #### B RN PAIN MANAGEMENT, BMP, LIPID, CBC, A1C WTH eA #### [facility] [address] LDL Cholesterol,Calculated 86 mg/dL Normal 0-100 [facility] Comment on above: Result Comment: LDL ATP III CLASSIFICATION LDL less than 100 mg/dL Optimal LDL 100-129 mg/dL Near or above optimal LDL 130-159 mg/dL Borderline high LDL 160-189 mg/dL High LDL greater than 189 mg/dL Very high Performed By: #### B RN PAIN MANAGEMENT, BMP, LIPID, CBC, A1C WTH eA #### [facility] [address] Triglyceride w/Reflex 227 mg/dL High 35-149 [facility] Comment on above: Result Comment: TRIG ATP III CLASSIFICATION TRIG less than 150 mg/dL Normal TRIG 150-199 mg/dL Borderline high TRIG 200-500 mg/dL High TRIG greater than 500 mg/dL Very high Standard traceable to the Center for Disease Conrtrol and Prevention (CDC) test method. Performed By: #### B RN PAIN MANAGEMENT, BMP, LIPID, CBC, A1C WTH eA #### [facility] [address] VLDL CHOLESTEROL 45 mg/dL Normal [facility] Comment on above: Performed By: #### B RN PAIN MANAGEMENT, BMP, LIPID, CBC, A1C WTH eA #### [facility] [address] Lymphocytes Auto (Bld) [#/Vo l]Ordered By: Alma Kan on 01-09-2022 Lymphocytes (Bld) [#/Vol] 3.0 10*3/uL 1.00-4.8 [facility] Lymphocytes/100 WBC Auto (Bl d)Ordered By: Alma Kan on 01-09-2022 Lymphocytes/100 WBC (Bld) 38.9 % . [facility] MCH Auto (RBC) [Entitic mass ]Ordered By: Alma Kan on 01-09-2022 MCH (RBC) [Entitic mass] 30.1 pg 27.5-35.2 [facility] MCHC Auto (RBC) [Mass/Vol]Or dered By: Alma Kan on 01-09-2022 MCHC (RBC) [Mass/Vol] 33.3 g/dL 32.5-35.6 [facility] MCV Auto (RBC) [Entitic vol] Ordered By: Alma Kan on 01-09-2022 MCV (RBC) [Entitic vol] 90.2 fL 83.5-101 F [facility] Monocytes Auto (Bld) [#/Vol] Ordered By: Alma Kan on 01-09-2022 Monocytes (Bld) [#/Vol] 0.7 10*3/uL 0.0-0.8 [facility] Monocytes/100 WBC Auto (Bld) Ordered By: Alma Kan on 01-09-2022 Monocytes/100 WBC (Bld) 8.6 % . F [facility] Neutrophils Auto (Bld) [#/Vo l]Ordered By: Alma Kan on 01-09-2022 Neutrophils (Bld) [#/Vol] 3.9 10*3/uL 1.8-7.7 [facility] Neutrophils/100 WBC Auto (Bl d)Ordered By: Alma Kan on 01-09-2022 Neutrophils/100 WBC (Bld) 50.3 % . [facility] No Panel InformationOrdered By: Alma Kan on 01-09-2022 Estimated GFR () > 60 mL/Min [facility] Comment on above: GFR estimated refere nce range: According to KDOQI guidelines, <60 ml/min/1.73m2 is sufficient to diagnose a patient with chronic kidney disease. Pharmacy Creatinine Clearance (Chem N/A [facility] Platelet mean volume Auto (B ld) [Entitic vol]Ordered By: Alma Kan on 01-09-2022 Platelet mean volume (Bld) [Entitic vol] 9.4 fL 6.6-10.1 [facility] Platelets Auto (Bld) [#/Vol] Ordered By: Alma Kan on 01-09-2022 Platelets (Bld) [#/Vol] 306 10*3/uL 150-450 [facility] RBC Auto (Bld) [#/Vol]Ordere d By: Alma Kan on 01-09-2022 RBC (Bld) [#/Vol] 4.52 10*6/uL 3.90-5.60 [facility] Serum or plasma calcium yaneth urement (mass/volume)Ordered By: Alma Kan on 01-09-2022 Calcium [Mass/Vol] 11.0 mg/dL 8.2-10.2 [facility] Serum or plasma chloride charity surement (moles/volume)Ordered By: Alma Kan on 01-09-2022 Chloride [Moles/Vol] 106 mmol/L 95-114 [facility] Serum or plasma glucose yaneth urement (mass/volume)Ordered By: Alma Kan on 01-09-2022 Glucose [Mass/Vol] 120 mg/dL 70-100 [facility] Comment on above: ADA recommended refe rence range Random Glucose Reference Range is dependent on time and content of last meal. Glucose of more than 200 mg/dL in a nonstressed, ambulatory subject supports the diagnosis of Diabetes Mellitus. Serum or plasma high density lipoprotein (HDL) cholesterol measurementOrdered By: Alma Kan on 01-09-2022 Cholesterol in HDL [Mass/Vol] 26 mg/dL 29-71 [facility] Comment on above: HDL CHOL ATP-III CLA SSIFICATION Cardiovascular Risk HDL > or equal to 60 mg/dL LOW HDL < 40 mg/dL HIGH Serum or plasma potassium me asurement (moles/volume)Ordered By: Alma Kan on 01-09-2022 Potassium [Moles/Vol] 4.3 mmol/L 3.5-5.1 [facility] Serum or plasma sodium measu rement (moles/volume)Ordered By: Alma Kan on 01-09-2022 Sodium [Moles/Vol] 136 mmol/L 136-146 [facility] Serum or plasma total carbon dioxide measurement (moles/volume)Ordered By: Alma Kan on 01-09-2022 CO2 [Moles/Vol] 25.5 mmol/L 22.0-30.0 [facility] Serum or plasma total choles terol/high density lipoprotein (HDL) cholesterol mass ratOrdered By: Alma Kan on 01-09-2022 Cholesterol.total/Shi sterol in HDL [Mass ratio] 6.0 {ratio} <5.0 [facility] Serum or plasma urea nitroge n measurement (mass/volume)Ordered By: Alma Kan on 01-09-2022 Urea nitrogen [Mass/Vol] 22 mg/dL 9 [facility] Triglyceride [Mass/volume] i n Serum or PlasmaOrdered By: Alma Kan on 01-09-2022 Triglyceride [Mass/Vol] 227 mg/dL 35-149 F [facility] Comment on above: TRIG ATP III CLASSIF [...] unremarkable. Perirectal fat is normal in appearance. [facility] RIS CONSOLIDATED [...] lipoma in the left gluteus medius muscle. [employer] Phone: Radiology Study observation (narrative) [employer] Phone: CT ABDOMEN PELVIS WO CONTRAS T Additional Contrast? NoneOrdered By: Radha Cummings on 09-11-2021 [facility] Work Phone: Basic Metabolic Profon 06-17 (cont.) Normal [facility] Comment on above: Result Comment: Aver age GFR for 60-69 years old: 85 mL/min/1.73sq m Chronic Kidney Disease: <60 mL/min/1.73sq m Kidney failure: <15 mL/min/1.73sq m eGFR calculated using average adult body mass. Additional eGFR calculator available at: http://www.pocketfungames/multiple_crcl_2011.htm Performed By: #### B MEHUL, CDP #### [facility] [address] [place] [address] Wood Patternmaker: Eder Herrera MD Anion gap [Moles/Vol] 11 mmol/L Normal 02-08 [facility] Comment on above: Performed By: #### B MEHUL, CDP #### [facility] [address] [place] [address] Wood Patternmaker: Eder Herrera MD BUN/CRE Ratio 11 Normal 02-11 [facility] Comment on above: Performed By: #### B MEHUL, CDP #### [facility] [address] [place] [address] Wood Patternmaker: Eder Herrera MD Calcium [Mass/Vol] 9.4 mg/dL Normal 8.6-10.4 [facility] Comment on above: Performed By: #### B MEHUL, CDP #### [facility] [address] [place] [address] Wood Patternmaker: Eder Herrera MD Chloride [Moles/Vol] 102 mmol/L Normal 98-107 [facility] Comment on above: Performed By: #### B MP, CDP #### [facility] [address] [place] [address] Wood Patternmaker: Eder Herrera MD CO2 [Moles/Vol] 24 mmol/L Normal 20-31 [facility] Comment on above: Performed By: #### B MP, CDP #### [facility] [address] [place], [place] [id number] Wood Patternmaker: Eder Herrera MD Creatinine [Mass/Vol] 1.19 mg/dL Normal 0.70-1.20 [facility] Comment on above: Performed By: #### B MP, CDP #### [facility] [address] [place], [place] [id number] [employer] Patternmaker: Eder Herrera MD GFR, Amer >60 Normal >60 [facility] Comment on above: Performed By: #### B MP, CDP #### [facility] [address] [place], [place] [id number] Wood Patternmaker: Eder Herrera MD GFR,non Amer >60 Normal >60 [facility] Comment on above: Performed By: #### B MP, CDP #### [facility] [address] [place], [place] [id number] Wood Patternmaker: Eder Herrera MD Glucose [Mass/Vol] 245 mg/dL High 70-99 [facility] Comment on above: Performed By: #### B MP, CDP #### [facility] [address] [place], [place] [id number] Wood Patternmaker: Eder Herrera MD Potassium [Moles/Vol] 4.2 mmol/L Normal 3.7-5.3 [facility] Comment on above: Performed By: #### B MP, CDP #### [facility] [address] [place], [place] [id number] Wood Patternmaker: Eder Herrera MD Sodium [Moles/Vol] 137 mmol/L Normal 135-144 [facility] Comment on above: Performed By: #### B MP, CDP #### [facility] [address] [place], [place] [id number] [employer] Patternmaker: Eder Herrera MD Urea nitrogen [Mass/Vol] 13 mg/dL Normal 8-23 [facility] Comment on above: Performed By: #### B MEHUL, CDP #### [facility] [address] [place] [address] Wood Patternmaker: Eder Herrera MD Staging: NOT REPORTED Normal [facility] Comment on above: Performed By: #### B MEHUL, CDP #### [facility] [address] [place] [address] Wood Patternmaker: Eder Herrera MD CBC with Diffon 06-17-2021 Abs. Basophil 0.10 k/uL Normal 0.0-0.2 [facility] Comment on above: Performed By: #### B MEHUL, CDP #### [facility] [address] [place], [place] [id number] Wood Patternmaker: Eder Herrera MD Abs.Neutrophil (Seg) 2.70 k/uL Normal 2.1-6.5 [facility] Comment on above: Performed By: #### B MEHUL, CDP #### [facility] [address] [place] [address] Wood Patternmaker: Eder Herrera MD Auto Diff Performed YES Normal [facility] Comment on above: Performed By: #### B MEHUL, CDP #### [facility] [address] [place] [address] Wood Patternmaker: Eder Herrera MD Basophils/100 WBC (Bld) 1 % Normal 0-2 [facility] Comment on above: Performed By: #### B MEUHL, CDP #### [facility] [address] [place], [place] [id number] Wood Patternmaker: Eder Herrera MD Eosinophils (Bld) [#/Vol] 0.20 10*3/uL Normal 0.0-0.4 [facility] Comment on above: Performed By: #### B MEHUL, CDP #### [facility] [address] [place], [place] [id number] Wood Patternmaker: Eder Herrera MD Eosinophils/100 WBC (Bld) 3 % Normal 0-5 [facility] Comment on above: Performed By: #### B MEHUL, CDP #### [facility] [address] [place], [place] [id number] Wood Patternmaker: Eder Herrera MD Erythrocyte distribution width (RBC) [Ratio] 12.6 % Normal 12.1-15.2 [facility] Comment on above: Performed By: #### B MEHUL, CDP #### [facility] [address] [place], [place] [id number] Wood Patternmaker: Eder Herrera MD Hematocrit (Bld) [Volume fraction] 34.3 % Low 41-53 [facility] Comment on above: Performed By: #### B MEHUL, CDP #### [facility] [address] [place], [place] [id number] Wood Patternmaker: Eder Herrera MD Hemoglobin (Bld) [Mass/Vol] 11.6 g/dL Low 13.5-17.5 [facility] Comment on above: Performed By: #### B MEHUL, CDP #### [facility] [address] [place], [place] [id number] Wood Patternmaker: Eder Herrera MD Lymphocytes (Bld) [#/Vol] 1.90 10*3/uL Normal 1.0-4.8 [facility] Comment on above: Performed By: #### B MEHUL, CDP #### [facility] [address] [place] [address] Wood Patternmaker: Eder Herrera MD Lymphocytes/100 WBC (Bld) 34 % Normal 13-44 [facility] Comment on above: Performed By: #### B MEHUL, CDP #### [facility] [address] [place], [place] [id number] Wood Patternmaker: Eder Herrera MD MCH (RBC) [Entitic mass] 29.6 pg Normal 26-34 [facility] Comment on above: Performed By: #### B MP, CDP #### [facility] [address] [place], [place] [id number] Wood Patternmaker: Eder Herrera MD MCHC (RBC) [Mass/Vol] 33.7 g/dL Normal 31-37 [facility] Comment on above: Performed By: #### B MP, CDP #### [facility] [address] [place], [place] [id number] Wood Patternmaker: Eder Herrera MD MCV (RBC) [Entitic vol] 87.9 fL Normal 80-100 [facility] Comment on above: Performed By: #### B MEHUL, CDP #### [facility] [address] [place], [place] [id number] Wood Patternmaker: Eder Herrera MD Monocytes (Bld) [#/Vol] 0.80 10*3/uL Normal 0.0-1.0 [facility] Comment on above: Performed By: #### B MP, CDP #### [facility] [address] [place], [place] [address] Wood Patternmaker: Eder Herrera MD Monocytes/100 WBC (Bld) 15 % High 5-9 [facility] Comment on above: Performed By: #### B MP, CDP #### [facility] [address] [place] [address] Wood Patternmaker: Eder Herrera MD Neutrophil (Seg) 47 % Normal 39-75 [facility] Comment on above: Performed By: #### B MP, CDP #### [facility] [address] [place], [place] [address] Wood Patternmaker: Eder Herrera MD Platelets (Bld) [#/Vol] 371 10*3/uL Normal 140-450 [facility] Comment on above: Performed By: #### B MEHUL, CDP #### [facility] [address] [place] [address] Wood Patternmaker: Eder Herrera MD RBC (Bld) [#/Vol] 3.91 10*6/uL Low 4.5-5.9 [facility] Comment on above: Performed By: #### B MEHUL, CDP #### [facility] [address] [place] [address] Wood Patternmaker: Eder Herrera MD WBC (Bld) [#/Vol] 5.7 10*3/uL Normal 3.5-11.0 [facility] Comment on above: Performed By: #### B MEHUL, CDP #### [facility] [address] [place] [address] Wood Patternmaker: Eder Herrera MD Abs.Imm.Granulocyte NOT REPORTED Normal 0.00-0.30 [facility] Comment on above: Performed By: #### B MEHUL, CDP #### [facility] [address] [place] [address] Wood Patternmaker: Eder Herrera MD Immature Granulocyte NOT REPORTED Normal 0 [facility] Comment on above: Performed By: #### B MEHUL, CDP #### [facility] [address] [place] [address] Wood Patternmaker: Eder Herrera MD MPV NOT REPORTED Normal 6.0-12.0 [facility] Comment on above: Performed By: #### B MEHUL, CDP #### [facility] [address] [place] [address] Wood Patternmaker: Eder Herrera MD NRBC Automated NOT REPORTED Normal [facility] Comment on above: Performed By: #### B MEHUL, CDP #### [facility] [address] [place] [address] Wood Patternmaker: Eder Herrera MD Platelet Comment NOT REPORTED Normal [facility] Comment on above: Performed By: #### B MP, CDP #### [facility] [address] [place], [place] [id number] Wood Patternmaker: Eder Herrera MD RBC morphology finding Nom (Bld) NOT REPORTED Normal [facility] Comment on above: Performed By: #### B MP, CDP #### [facility] [address] [place] [address] Wood Patternmaker: Eder Herrera MD WBC Morphology NOT REPORTED Normal [facility] Comment on above: Performed By: #### B MP, CDP #### [facility] [address] [place] [address] Wood Patternmaker: Eder Herrera MD Basic Metabolic Panelon Anion gap [Moles/Vol] 9 mmol/L 9 - 17 mmol/L [facility] Calcium [Mass/Vol] 8.8 mg/dL 8.6 - 10. 4 mg/dL [facility] Chloride [Moles/Vol] 101 mmol/L 98 - 10 7 mmol/L [facility] CO2 [Moles/Vol] 24 mmol/L 20 - 31 mmol/L [facility] Creatinine [Mass/Vol] 1.16 mg/dL 0.70 - 1.20 mg/dL [facility] GFR >60 >60 mL/min [facility] GFR Non- >60 >60 mL/min [facility] Glucose [Mass/Vol] 168 mg/dL High 70 - 99 mg/dL [facility] Interpretation and review of laboratory results Abnormal [facility] Potassium [Moles/Vol] 3.6 mmol/L Low 3.7 - 5.3 mmol/L [facility] Sodium [Moles/Vol] 134 mmol/L Low 135 - 144 mmol/L [facility] Urea nitrogen (BldV) [Mass/Vol] 18 mg/dL 8 - 23 mg/dL [facility] Urea nitrogen/Creatinine (Bld) [Mass ratio] 16 [facility] CBCon 06-01-2021 Hematocrit (Bld) [Volume fraction] 35.9 % Low 40.7 - 50.3 % [facility] Hemoglobin.gastrointest inal spec 1 Ql (Stl) 12.1 g/dL Low 13.0 - 17.0 g/dL [facility] Interpretation and review of laboratory results Abnormal [facility] MCH (RBC) [Entitic mass] 30.0 pg 25.2 - 33.5 pg [facility] MCHC (RBC) [Mass/Vol] 33.7 g/dL 28.4 - 34.8 g/dL [facility] MCV (RBC) [Entitic vol] 89.1 fL 82.6 - 102.9 fL [facility] NRBC Automated 0.0 0.0 per 100 WBC [facility] Platelet distribution width (Bld) [Ratio] 11.5 % Low 11.8 - 14.4 % [facility] Platelet mean volume (Bld) [Entitic vol] 10.4 fL 8.1 - 13.5 fL [facility] Platelets (Bld) [#/Vol] 178 10*3/uL [facility] RBC (Bld) [#/Vol] 4.03 10*6/uL Low 4.21 - 5.7 7 m/uL [facility] WBC (Bld) [#/Vol] 3.6 10*3/uL [facility] EKG Rhythm Stripon 2 [facility] LAB [facility] Laboratory - Chemistry and C hemistry - challengeon 06-01-2021 GFR/1.73 sq M.predicted MDRD (S/P/Bld) [Vol rate/Area] [facility] Comment on above: Average GFR for 60-6 9 years old: 85 mL/min/1.73sq m Chronic Kidney Disease: <60 mL/min/1.73sq m Kidney failure: <15 mL/min/1.73sq m eGFR calculated using average adult body mass. Additional eGFR calculator available at: http://www.SolePower.Cronote/multiple_crcl_2011.htm Stage 1: Some kidney damage normal GFR Stage 2: Mild kidney damage GFR 60-89 Stage 3: Moderate kidney damage GFR 30-59 Stage 4: Severe kidney damage GFR 15-29 Stage 5: Severe kidney damage GFR <15 ESRD - chronic treatment by dialysis or transplant Basic Metabolic Panelon Anion gap [Moles/Vol] 12 mmol/L 9 - 17 mmol/L [facility] Calcium [Mass/Vol] 8.7 mg/dL 8.6 - 10. 4 mg/dL [facility] Chloride [Moles/Vol] 105 mmol/L 98 - 10 7 mmol/L [facility] CO2 [Moles/Vol] 24 mmol/L 20 - 31 mmol/L [facility] Creatinine [Mass/Vol] 1.59 mg/dL High 0.70 - 1.20 mg/dL [facility] GFR 54 mL/min Low >60 [facility] GFR Non- 44 mL/min Low >60 [facility] Glucose [Mass/Vol] 140 mg/dL High 70 - 99 mg/dL [facility] Interpretation and review of laboratory results Abnormal [facility] Potassium [Moles/Vol] 3.9 mmol/L 3.7 - 5.3 mmol/L [facility] Sodium [Moles/Vol] 141 mmol/L 135 - 144 mmol/L [facility] Urea nitrogen (BldV) [Mass/Vol] 21 mg/dL 8 - 23 mg/dL [facility] Urea nitrogen/Creatinine (Bld) [Mass ratio] 13 [facility] CBCon 05-31-2021 Hematocrit (Bld) [Volume fraction] 35.9 % Low 40.7 - 50.3 % [facility] Hemoglobin.gastrointest inal spec 1 Ql (Stl) 12.0 g/dL Low 13.0 - 17.0 g/dL [facility] Interpretation and review of laboratory results Abnormal [facility] MCH (RBC) [Entitic mass] 30.3 pg 25.2 - 33.5 pg [facility] MCHC (RBC) [Mass/Vol] 33.4 g/dL 28.4 - 34.8 g/dL [facility] MCV (RBC) [Entitic vol] 90.7 fL 82.6 - 102.9 fL [facility] NRBC Automated 0.0 0.0 per 100 WBC [facility] Platelet distribution width (Bld) [Ratio] 11.7 % Low 11.8 - 14.4 % [facility] Platelet mean volume (Bld) [Entitic vol] 10.6 fL 8.1 - 13.5 fL [facility] Platelets (Bld) [#/Vol] 188 10*3/uL [facility] RBC (Bld) [#/Vol] 3.96 10*6/uL Low 4.21 - 5.7 7 m/uL [facility] WBC (Bld) [#/Vol] 4.1 10*3/uL [facility] EKG Rhythm Stripon [place] [facility] Laboratory - Chemistry and C hemistry - challengeon 05-31-2021 GFR/1.73 sq M.predicted MDRD (S/P/Bld) [Vol rate/Area] [facility] Comment on above: Average GFR for 60-6 9 years old: 85 mL/min/1.73sq m Chronic Kidney Disease: <60 mL/min/1.73sq m Kidney failure: <15 mL/min/1.73sq m eGFR calculated using average adult body mass. Additional eGFR calculator available at: http://www.pocketfungames/multiple_crcl_2012.htm Stage 1: Some kidney damage normal GFR Stage 2: Mild kidney damage GFR 60-89 Stage 3: Moderate kidney damage GFR 30-59 Stage 4: Severe kidney damage GFR 15-29 Stage 5: Severe kidney damage GFR <15 ESRD - chronic treatment by dialysis or transplant Basic Metabolic Panelon Anion gap [Moles/Vol] 11 mmol/L 9 - 17 mmol/L [facility] Calcium [Mass/Vol] 8.8 mg/dL 8.6 - 10. 4 mg/dL [facility] Chloride [Moles/Vol] 101 mmol/L 98 - 10 7 mmol/L [facility] CO2 [Moles/Vol] 23 mmol/L 20 - 31 mmol/L [facility] Creatinine [Mass/Vol] 1.61 mg/dL High 0.70 - 1.20 mg/dL [facility] GFR 53 mL/min Low >60 [facility] GFR Non- 44 mL/min Low >60 [facility] Glucose [Mass/Vol] 114 mg/dL High 70 - 99 mg/dL [facility] Interpretation and review of laboratory results Abnormal [facility] Potassium [Moles/Vol] 3.5 mmol/L Low 3.7 - 5.3 mmol/L [facility] Sodium [Moles/Vol] 135 mmol/L 135 - 144 mmol/L [facility] Urea nitrogen (BldV) [Mass/Vol] 24 mg/dL High 8 - 23 mg/dL [facility] Urea nitrogen/Creatinine (Bld) [Mass ratio] 15 [facility] CBCon 05-30-2021 Hematocrit (Bld) [Volume fraction] 35.4 % Low 40.7 - 50.3 % [facility] Hemoglobin.gastrointest inal spec 1 Ql (Stl) 11.6 g/dL Low 13.0 - 17.0 g/dL [facility] Interpretation and review of laboratory results Abnormal [facility] MCH (RBC) [Entitic mass] 29.5 pg 25.2 - 33.5 pg [facility] MCHC (RBC) [Mass/Vol] 32.8 g/dL 28.4 - 34.8 g/dL [facility] MCV (RBC) [Entitic vol] 90.1 fL 82.6 - 102.9 fL [facility] NRBC Automated 0.0 0.0 per 100 WBC [facility] Platelet distribution width (Bld) [Ratio] 11.8 % 11.8 - 14.4 % [facility] Platelet mean volume (Bld) [Entitic vol] 10.7 fL 8.1 - 13.5 fL [facility] Platelets (Bld) [#/Vol] 208 10*3/uL [facility] RBC (Bld) [#/Vol] 3.93 10*6/uL Low 4.21 - 5.7 7 m/uL [facility] WBC (Bld) [#/Vol] 3.5 10*3/uL [facility] EKG Rhythm Stripon 2 [facility] Laboratory - Chemistry and C hemistry - challengeon 05-30-2021 GFR/1.73 sq M.predicted MDRD (S/P/Bld) [Vol rate/Area] [facility] Comment on above: Average GFR for 60-6 9 years old: 85 mL/min/1.73sq m Chronic Kidney Disease: <60 mL/min/1.73sq m Kidney failure: <15 mL/min/1.73sq m eGFR calculated using average adult body mass. Additional eGFR calculator available at: http://www.SolePower.Cronote/multiple_crcl_2012.htm Stage 1: Some kidney damage normal GFR Stage 2: Mild kidney damage GFR 60-89 Stage 3: Moderate kidney damage GFR 30-59 Stage 4: Severe kidney damage GFR 15-29 Stage 5: Severe kidney damage GFR <15 ESRD - chronic treatment by dialysis or transplant Troponinon 05-30-2021 Interpretation and review of laboratory results Abnormal [employer] Troponin Interp [facility] REPORTED [facility] Trop[facility] T NOT REPORTED <0.03 ng/mL [employer] [facility] T[facility], High Sensitivity 54 ng/L Critically high 0 - 22 ng/L [employer] [employer] Comment on above: High Sensitivity Troponin values cannot be compared with other Troponin methodologies. Patients with high levels of Biotin oral intake (i.e >5mg/day) may have falsely decreased Troponin levels. Samples collected within 8 hours of biotin intake may require additional information for diagnosis. [employer] [employer] XR HIP 2-3 VW W PELVIS LEFTo n 05-30-2021 No acute osseous abnormality in the pelvis or left hip. Mild degenerative changes. [facility] EXAMINATION: ONE X-RAY VIEW OF THE [...] are noted in the lower lumbar spine. [facility] Kerrie Elder DO - 05/30/2021 EXAMINATION: [...] pelvis or left hip. Mild degenerative changes. [employer] Work Phone: Radiology Study observation (narrative) [employer] rodr[employer] Work Phone: XR HIP 2-3 VW W PELVIS LEFTO rdered By: Kerrie Elder on 05-30-2021 [employer] Work Phone: Basic Metabolic Panelon Anion gap [Moles/Vol] 14 mmol/L 9 - 17 mmol/L [employer] Calcium [Mass/Vol] 9.7 mg/dL 8.6 - 10. 4 mg/dL [employer] Chloride [Moles/Vol] 102 mmol/L 98 - 10 7 mmol/L [employer] [employer] CO2 [Moles/Vol] 23 mmol/L 20 - 31 mmol/L [facility] Creatinine [Mass/Vol] 1.54 mg/dL High 0.70 - 1.20 mg/dL [facility] GFR 56 mL/min Low >60 [facility] GFR Non- 46 mL/min Low >60 [facility] Glucose [Mass/Vol] 98 mg/dL 70 - 99 mg/dL [facility] Interpretation and review of laboratory results Abnormal [facility] Potassium [Moles/Vol] 3.2 mmol/L Low 3.7 - 5.3 mmol/L [employer] Sodium [Moles/Vol] 139 mmol/L 135 - 144 mmol/L [employer] Urea nitrogen (BldV) [Mass/Vol] 20 mg/dL 8 - 23 mg/dL [employer] Urea nitrogen/Creatinine (Bld) [Mass ratio] 13 [facility] 05-29-2021 Hematocrit (Bld) [Volume fraction] 39.5 % Low 40.7 - 50.3 % [employer] Hemoglobin.gastrointest inal spec 1 Ql (Stl) 13.1 g/dL 13.0 - 17.0 g/dL [facility] [employer] Interpretation and review of laboratory results Abnormal [facility] MCH (RBC) [Entitic mass] 29.6 pg 25.2 - 33.5 pg [employer] MCHC (RBC) [Mass/Vol] 33.2 g/dL 28.4 - 34.8 g/dL [employer] [employer] MCV (RBC) [Entitic vol] 89.4 fL 82.6 - 102.9 fL [employer] NRBC Automated 0.0 0.0 per 100 WBC [facility] Platelet distribution width (Bld) [Ratio] 11.8 % 11.8 - 14.4 % [employer] Platelet mean volume (Bld) [Entitic vol] 10.5 fL 8.1 - 13.5 fL [employer] Platelets (Bld) [#/Vol] 198 10*3/uL [employer] RBC (Bld) [#/Vol] 4.42 10*6/uL 4.21 - 5.7 7 m/uL [employer] WBC (Bld) [#/Vol] 4.4 10*3/uL [facility]terization and angiogra phy procedure details panelon 05-29-2021 Cardiac Diagnostic Report Demographics Patient LAURA Cosby Date of Study 05/29/2021 Name Date of 1960 Gender Male Age 60 year(s) Race Room [id number]^ROSEMARIE Height: 72 inch, 182.88 cm Number Corporate [id number] Weight: 231 pounds, 104.8 kg ID # Patient [id number] BSA: 2.26 m^2 BMI: 31.33 kg/m^2 Acct # MR # [id number] Performing Alice Mars Physician Referring # Physician [...] Right coronary angiography. Contrast Material: - Isovue 11061 ml Fluoroscopy Time: Diagnostic: 4:07 minutes. Total: [...] + (more content not included)... PN T [facility] Alice Mars MD - 05/29/2021 Cardiac Diagnostic Report Demographics Patient LAURA Cosby Date of Study 05/29/2021 Name Date of 1960 Gender Male Age 60 year(s) Race Room [id number]^ALISHA^ALICE Height: 72 inch, 182.88 cm Number Corporate [id number] Weight: 231 pounds, 104.8 kg ID # Patient [id number] BSA: 2.26 m^2 BMI: 31.33 kg/m^2 Acct # MR # [id number] Performing Alice Mars Physician Referring # Physician [...] Right coronary angiography. Contrast Material: - Isovue 50552 ml Fluoroscopy Time: Diagnostic: 4:07 minutes. Total: [...] assessed as CCS III according to the Nora clinical classifica (more content not included)... [facility] [employer] Work Phone: [facility] [employer] Work Phone: [facility] [employer] Phone: EKG Rhythm Stripon 2 [facility] Glucose, Whole Bloodon 05-29 Glucose [Mass/Vol] 97 mg/dL 74 - 100 mg/dL [facility] Glucose [Mass/Vol] 94 mg/dL 74 - 100 mg/dL [facility] Laboratory - Chemistry and C hemistry - challengeon 05-29-2021 GFR/1.73 sq M.predicted MDRD (S/P/Bld) [Vol rate/Area] [facility] Comment on above: Average GFR for 60-6 9 years old: 85 mL/min/1.73sq m Chronic Kidney Disease: <60 mL/min/1.73sq m Kidney failure: <15 mL/min/1.73sq m eGFR calculated using average adult body mass. Additional eGFR calculator available at: http://www.pocketfungames/multiple_crcl_2012.htm Stage 1: Some kidney damage normal GFR Stage 2: Mild kidney damage GFR 60-89 Stage 3: Moderate kidney damage GFR 30-59 Stage 4: Severe kidney damage GFR 15-29 Stage 5: Severe kidney damage GFR <15 ESRD - chronic treatment by dialysis or transplant Lipid Panelon 05-29-2021 Cholesterol [Mass/Vol] 109 mg/dL <200 [facility] Comment on above: Cholesterol Guidelines: <200 Desirable 200-240 Borderline >240 Undesirable Cholesterol in HDL [Mass/Vol] 19 mg/dL Low >40 [facility] Comment on above: HDL Guidelines: <40 Undesirable 40-59 Borderline >59 Desirable Cholesterol in LDL [Mass/Vol] 67 mg/dL 0 - 130 mg/dL [facility] Comment on above: LDL Guidelines: <100 Desirable 100-129 Near to/above Desirable 130-159 Borderline >159 Undesirable Direct (measured) LDL and calculated LDL are not interchangeable tests. Cholesterol in VLDL [Mass/Vol] NOT REPORTED 1 - 30 mg/dL [facility] Cholesterol.total/Shi sterol in HDL [Mass ratio] 5.7 {ratio} High <5 [facility] Interpretation and review of laboratory results Abnormal [facility] Triglyceride [Mass/Vol] 117 mg/dL <150 M [facility] Comment on above: Triglyceride Guidelines: <150 Desirable 150-199 Borderline 200-499 High >499 Very high Based on AHA Guidelines for fasting triglyceride, February 2012. [facility] Troponinon 05-29-2021 Interpretation and review of laboratory results Abnormal [facility] Troponin Interp NOT REPORTED [facility] ealt Troponin T NOT REPORTED <0.03 ng/mL [facility] Troponin, High Sensitivity 58 ng/L Critically high 0 - 22 ng/L [facility] Comment on above: High Sensitivity Troponin values cannot be compared with other Troponin methodologies. Patients with high levels of Biotin oral intake (i.e >5mg/day) may have falsely decreased Troponin levels. Samples collected within 8 hours of biotin intake may require additional information for diagnosis. [facility] RENAL COMPLETEon 05-29-19 22 1. Bilateral uretera l jets are visualized. Urinary bladder grossly unremarkable. 2. Unremarkable renal ultrasound. No hydronephrosis. RECOMMENDATIONS: Unavailable [facility] EXAMINATION: RETROPERITONEAL ULTRASOUND OF THE KIDNEYS [...] not be obtained due to patient immobility. [facility] Ravinder Tinoco [...] Unremarkable renal ultrasound. No hydronephrosis. RECOMMENDATIONS: Unavailable [employer] Work Phone: Radiology Study observation (narrative) [employer] Work Phone: RENAL COMPLETEOrdered By: Ravinder Corona on 05-29-2021 [employer] Work Phone: Basic Metabolic Panelon Anion gap [Moles/Vol] 11 mmol/L 9 - 17 mmol/L [employer] Calcium [Mass/Vol] 10.7 mg/dL High 8.6 - 10. 4 mg/dL [employer] [employer] Chloride [Moles/Vol] 101 mmol/L 98 - 10 7 mmol/L [employer] CO2 [Moles/Vol] 25 mmol/L 20 - 31 mmol/L [facility] Creatinine [Mass/Vol] 1.4 mg/dL High 0.70 - 1.20 mg/dL [facility] GFR >60 >60 mL/min [facility] GFR Non- 52 mL/min Low >60 [facility] Glucose [Mass/Vol] 97 mg/dL 70 - 99 mg/dL [facility] Interpretation and review of laboratory results Abnormal [facility] Potassium [Moles/Vol] 3.6 mmol/L Low 3.7 - 5.3 mmol/L [facility] Sodium [Moles/Vol] 137 mmol/L 135 - 144 mmol/L [facility] Urea nitrogen (BldV) [Mass/Vol] 21 mg/dL 8 - 23 mg/dL [facility] Urea nitrogen/Creatinine (Bld) [Mass ratio] 15 [facility] CBCon 05-28-2021 Hematocrit (Bld) [Volume fraction] 38.7 % Low 40.7 - 50.3 % [facility] Hemoglobin.gastrointest inal spec 1 Ql (Stl) 13.2 g/dL 13.0 - 17.0 g/dL [facility] Interpretation and review of laboratory results Abnormal [facility] MCH (RBC) [Entitic mass] 30.2 pg 25.2 - 33.5 pg [facility] MCHC (RBC) [Mass/Vol] 34.1 g/dL 28.4 - 34.8 g/dL [facility] MCV (RBC) [Entitic vol] 88.6 fL 82.6 - 102.9 fL [facility] NRBC Automated 0.0 0.0 per 100 WBC [facility] Platelet distribution width (Bld) [Ratio] 11.8 % 11.8 - 14.4 % [facility] Platelet mean volume (Bld) [Entitic vol] 10.2 fL 8.1 - 13.5 fL [facility] Platelets (Bld) [#/Vol] 220 10*3/uL [facility] RBC (Bld) [#/Vol] 4.37 10*6/uL 4.21 - 5.7 7 m/uL [facility] WBC (Bld) [#/Vol] 3.8 10*3/uL [facility] EKG 12 leadon 05-28-2021 Atrial Rate 71 BPM [facility] [employer] Work Phone: P Kerby 27 degrees [employer] Work Phone: P-R Interval 132 ms [employer] Work Phone: Q-T Interval 406 ms [employer] Work Phone: QRS Duration 96 ms [employer] Work Phone: QTc Calculation (Bazett) 441 ms [employer] Work Phone: R Kerby -15 degrees [employer] Work Phone: T Kerby -82 degrees [employer] Work Phone: Ventricular Rate 71 BPM [employer] Work Phone: Poor data quality, interpretation may be adversely affected Normal sinus rhythm Left ventricular hypertrophy with repolarization abnormality Abnormal ECG When compared with ECG of 20-MAY-2021 15:00, Minimal criteria for Septal infarct are no longer Present Confirmed by Alma Kan MD ([id number]) on 05/28/2021 10:34:44 AM [facility] RADIOLOGY Alma Kan MD - 05/28/2021 Poor data quality, interpretation may be adversely affected Normal sinus rhythm Left ventricular hypertrophy with repolarization abnormality Abnormal ECG When compared with ECG of 20-MAY-2021 15:00, Minimal criteria for Septal infarct are no longer Present Confirmed by Alma Kan MD ([id number]) on 05/28/2021 10:34:44 AM [employer] Work Phone: [employer] Work Phone: EKG Rhythm Stripon [facility] Routine [facility] Echocardiogram complete 2D w ith doppler with coloron 05-28-2021 [facility] Transthoracic Echocardiography Report (TTE) Patient Name LAURA Date of Study 05/28/2021 PIOTR A Date of 1960 Gender Male Age 60 year(s) Race Room Number 0336 Height: 72 inch, 182.88 cm Corporate ID [id number] Weight: 231 pounds, 104.8 kg # Patient Acct [id number] BSA: 2.26 m^2 BMI: 31.33 # kg/m^2 MR # [id number] Hospital Mortician Hilda Arango Interpreting Physician Alma Kan Fellow Referring Nurse Cassie Morejon, ENVIRONMENTAL EDUCATOR Practitioner Interpreting Referring Physician Fellow Type of Study TTE procedure:2D Echocardiogram, M-Mode, Doppler, Color Doppler. Procedure Date Date: 05/28/2021 Start: 10:54 AM Study Location: [facility] Indications:Hypertens ion. History / Tech. Comments: [...] Lateral Wall E' velocity:0.08 m/s PN T [facility] Alma Kan MD - 05/28/2021 [facility] Transthoracic Echocardiography Report (TTE) Patient Name LAURA Date of Study 05/28/2021 PIOTR A Date of 1960 Gender Male Age 60 year(s) Race Room Number 0333 Height: 72 inch, 182.88 cm Corporate ID [id number] Weight: 231 pounds, 104.8 kg # Patient Acct [id number] BSA: 2.26 m^2 BMI: 31.33 # kg/m^2 MR # [id number] Hospital Mortician Hilda Arango Interpreting Physician Alma Kan Fellow Referring Nurse Cassie Morejon [facility] Practitioner Interpreting Referring Physician Fellow Type of Study TTE procedure:2D Echocardiogram, M-Mode, Doppler, Color Doppler. Procedure Date Date: 05/28/2021 Start: 10:54 AM Study Location: [facility] Indications:Hypertens ion. History / Tech. Comments: [...] 30.06 cm Lateral Wall E' velocity:0.08 m/s [employer] Work Phone: [employer] Work Phone: Glucose, Whole Bloodon 05-28 Glucose [Mass/Vol] 147 mg/dL High 74 - 100 mg/dL [employer] Interpretation and review of laboratory results Abnormal [facility] Glucose [Mass/Vol] 76 mg/dL 74 - 100 mg/dL [facility] Glucose [Mass/Vol] 129 mg/dL High 74 - 100 mg/dL [facility] Interpretation and review of laboratory results Abnormal [facility] Glucose [Mass/Vol] 77 mg/dL 74 - 100 mg/dL [facility] Glucose [Mass/Vol] 75 mg/dL 74 - 100 mg/dL [facility] Hemoglobin A1con 05-28-2021 Glucose [Mass/Vol] 137 mg/dL [facility] Comment on above: The ADA and AACC rec ommend providing the estimated average glucose result to permit better patient understanding of their HBA1c result. HbA1c (Bld) [Mass fraction] 6.4 % High 4.0 - 6.0 % [facility] Interpretation and review of laboratory results Abnormal [facility] Laboratory - Chemistry and C hemistry - challengeon 05-28-2021 GFR/1.73 sq M.predicted MDRD (S/P/Bld) [Vol rate/Area] [facility] Comment on above: Average GFR for 60-6 9 years old: 85 mL/min/1.73sq m Chronic Kidney Disease: <60 mL/min/1.73sq m Kidney failure: <15 mL/min/1.73sq m eGFR calculated using average adult body mass. Additional eGFR calculator available at: http://www.pocketfungames/multiple_crcl_2012.htm Stage 1: Some kidney damage normal GFR Stage 2: Mild kidney damage GFR 60-89 Stage 3: Moderate kidney damage GFR 30-59 Stage 4: Severe kidney damage GFR 15-29 Stage 5: Severe kidney damage GFR <15 ESRD - chronic treatment by dialysis or transplant Troponinon 05-28-2021 Interpretation and review of laboratory results Abnormal [facility] Troponin Interp NOT REPORTED [facility] Troponin T NOT REPORTED <0.03 ng/mL [facility] Troponin, High Sensitivity 60 ng/L Critically high 0 - 22 ng/L [facility] Comment on above: High Sensitivity Troponin values cannot be compared with other Troponin methodologies. Patients with high levels of Biotin oral intake (i.e >5mg/day) may have falsely decreased Troponin levels. Samples collected within 8 hours of biotin intake may require additional information for diagnosis. [facility] Basic Metabolic Panel w/ Ref willam to MGon 05-27-2021 Anion gap [Moles/Vol] 10 mmol/L 9 - 17 mmol/L [facility] Calcium [Mass/Vol] 10.9 mg/dL High 8.6 - 10. 4 mg/dL [facility] Chloride [Moles/Vol] 101 mmol/L 98 - 10 7 mmol/L [facility] CO2 [Moles/Vol] 26 mmol/L 20 - 31 mmol/L [facility] Creatinine [Mass/Vol] 1.24 mg/dL High 0.70 - 1.20 mg/dL [facility] GFR >60 >60 mL/min [facility] GFR Non- 59 mL/min Low >60 [facility] Glucose [Mass/Vol] 133 mg/dL High 70 - 99 mg/dL [facility] Interpretation and review of laboratory results Abnormal [facility] Potassium [Moles/Vol] 3.7 mmol/L 3.7 - 5.3 mmol/L [facility] Sodium [Moles/Vol] 137 mmol/L 135 - 144 mmol/L [facility] Urea nitrogen (BldV) [Mass/Vol] 19 mg/dL 8 - 23 mg/dL [facility] Urea nitrogen/Creatinine (Bld) [Mass ratio] 15 [facility] CBC auto differentialon Absolute Eos # 0.03 [facility] th Absolute Immature Granulocyte <0.03 [facility] Absolute Lymph # 0.78 Low [facility] alth Absolute [place] # 0.87 [facility] lth Basophils (Bld) [#/Vol] 0.03 10*3/uL [facility] Basophils/100 WBC (Bld) 1 % 0 - 2 % M [facility] Differential Type NOT REPORTED [facility] Eosinophils/100 WBC (Bld) 1 % 1 - 4 % [facility] Hematocrit (Bld) [Volume fraction] 37.5 % Low 40.7 - 50.3 % [facility] Hemoglobin.gastrointest inal spec 1 Ql (Stl) 12.6 g/dL Low 13.0 - 17.0 g/dL [facility] Immature granulocytes/100 WBC (Bld) 0 % 0 [facility] Interpretation and review of laboratory results Abnormal [facility] Lymphocytes/100 WBC (Bld) 15 % Low 24 - 43 % [facility] MCH (RBC) [Entitic mass] 30.1 pg 25.2 - 33.5 pg [facility] MCHC (RBC) [Mass/Vol] 33.6 g/dL 28.4 - 34.8 g/dL [facility] MCV (RBC) [Entitic vol] 89.5 fL 82.6 - 102.9 fL [facility] Monocytes/100 WBC (Bld) 17 % High 3 - 12 % M [facility] NRBC Automated 0.0 0.0 per 100 WBC [facility] Platelet distribution width (Bld) [Ratio] 11.7 % Low 11.8 - 14.4 % [facility] Platelet Estimate NOT REPORTED [facility] Platelet mean volume (Bld) [Entitic vol] 10.2 fL 8.1 - 13.5 fL [facility] Platelets (Bld) [#/Vol] 238 10*3/uL [facility] RBC (Bld) [#/Vol] 4.19 10*6/uL Low 4.21 - 5.7 7 m/uL [facility] RBC (Bld) [#/Vol] NOT REPORTED [facility] Segmented neutrophils/100 WBC (Bld) 67 % High 36 - 65 % [facility] Segs Absolute 3.50 [facility] WBC (Bld) [#/Vol] 5.2 10*3/uL [facility] WBC (Bld) [#/Vol] NOT REPORTED [facility] Glucose, Whole Bloodon 05-27 Glucose [Mass/Vol] 146 mg/dL High 74 - 100 mg/dL [facility] Interpretation and review of laboratory results Abnormal [facility] Laboratory - Chemistry and C hemistry - challengeon 05-27-2021 GFR/1.73 sq M.predicted MDRD (S/P/Bld) [Vol rate/Area] [facility] Comment on above: Average GFR for 60-6 9 years old: 85 mL/min/1.73sq m Chronic Kidney Disease: <60 mL/min/1.73sq m Kidney failure: <15 mL/min/1.73sq m eGFR calculated using average adult body mass. Additional eGFR calculator available at: http://www.SolePower.Cronote/multiple_crcl_2011.htm Stage 1: Some kidney damage normal GFR Stage 2: Mild kidney damage GFR 60-89 Stage 3: Moderate kidney damage GFR 30-59 Stage 4: Severe kidney damage GFR 15-29 Stage 5: Severe kidney damage GFR <15 ESRD - chronic treatment by dialysis or transplant Troponinon 05-27-2021 Interpretation and review of laboratory results Abnormal [employer] Troponin Interp NOT REPORTED [facility] ealt Troponin T NOT REPORTED <0.03 ng/mL [facility] Troponin, High Sensitivity 45 ng/L High 0 - 22 ng/L [facility] Comment on above: High Sensitivity Troponin values cannot be compared with other Troponin methodologies. Patients with high levels of Biotin oral intake (i.e >5mg/day) may have falsely decreased Troponin levels. Samples collected within 8 hours of biotin intake may require additional information for diagnosis. [employer] XR CHEST (2 VW)on 05-27-2021 No acute cardiopulmonary process [facility] RIS CONSOLIDATED [...] is present. IMPRESSION: No acute cardiopulmonary process [employer] Work Phone: Radiology Study observation (narrative) [employer] [facility] Work Phone: XR CHEST (2 VW)Ordered By: Jn Saul on 05-27-2021 [employer] Work Phone: Coding Summary.on 08-30-2020 Coding Summary. CODING DATE: 08/30/2020 [facility] STATUS: Home (Routine DC) PAYOR: [employer] DESCRIPTION 5524 Level 4 Imaging without Contrast ADMIT DX: REASON FOR VISIT DX: I25.10 Atherosclerotic heart disease of [place] coronary artery without angina pectoris FINAL DX: PRINCIPAL: I25.10 Atherosclerotic heart disease of [place] coronary artery without angina pectoris SECONDARY: PYMT [...] Saved: 08/30/2020 10:57 am Normal [facility] Consent for Treatmenton Consent for Treatment [id number] Normal [facility] Echo Transthoracic Completeo n 08-28-2020 Echo Transthoracic Complete Echocardiology Procedure Exam Date/Time Accession # Ordering Echo Transthoracic 08/28/2020 11:32 EDT [id number] Helder GREENBERG, Antonio Lehman Complete CPT code 94715 [id number] Reason for Exam (Echo Transthoracic Complete) CAD;CAD [...] by: viji Technologist: CARI Tan [facility] Otheron 07-25-2020 Casts UA NOT REPORTED /LPF [employer] Work Phone: Urinalysis with Microscopico n 07-25-2020 Amorphous, UA NOT REPORTED None [facility] Work Phone: Bacteria, UA TRACE Abnormal None [employer] Work Phone: Bilirubin Urine Negative NEGATIVE [facility] Work Phone: Color, UA YELLOW YELLOW [employer] Work Phone: Crystals, UA NOT REPORTED None /HPF [employer] [facility] Work Phone: Epithelial Cells UA 0 TO 2 [employer] Work Phone: Glucose, Ur Negative NEGATIVE [employer] Work Phone: Interpretation and review of laboratory results Abnormal [facility] Work Phone: Ketones Ql (U) Negative NEGATIVE [facility] Work Phone: Leukocyte esterase Test strip Ql (U) Negative NEGATIVE [facility] [employer] Work Phone: Mucus, UA TRACE Abnormal None [facility] [employer] Work Phone: Nitrite, Urine Negative NEGATIVE [facility] Work Phone: Other Observations UA NOT REPORTED NOT REQ. M [facility] Work Phone: pH, UA 5.5 [facility] [employer] Work Phone: Protein (U) [Mass/Vol] 1+ Abnormal NEGATIVE [facility] [employer] Work Phone: RBC (U) [#/Vol] None [facility] Work Phone: Renal Epithelial, UA NOT REPORTED 0 /HPF [facility] [employer] Work Phone: Specific Enochs, UA 1.025 High [facility] [employer] Work Phone: Trichomonas, UA NOT REPORTED None [facility] Work Phone: Turbidity UA CLEAR CLEAR [facility] [employer] Work Phone: Urinalysis Comments NOT REPORTED [facility] Work Phone: Urine Hgb Negative NEGATIVE [facility] [employer] Work Phone: Urobilinogen, Urine Normal Normal [facility] [employer] Work Phone: WBC, UA 0 TO 2 [facility] [employer] Work Phone: Yeast, UA NOT REPORTED None [facility] [employer] Work Phone: - [facility] [employer] Work Phone: Coding Summary.on 06-01-2020 Coding Summary. 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) use of antithrombotics/antip latelets Z79.82 MCC (current) use of aspirin Z79.84 MCC (current) use of oral hypoglycemic drugs Z79.899 Other predatory animal exterminator (current) drug therapy Z82.49 Family history of [...] Saved: 06/01/2020 08:35 pm Normal [facility] Consent for Treatmenton Consent for Treatment [id number] Normal [facility] Heart and Vascular Office/Cl inic Noteon 04-26-2020 Heart and Vascular Office/Clinic Note Chief Complaint HTN HPI Staff PCP Pia Zhang History of Present Illness NEW PT Hx HTN Hx CAD s/p PCI SYLVIA x 2 LAD and om 2014 taking DAPT. No hx AMI. No statin No records. Stented in [facility]. NO chest discomfort now or then Did have some lethargy then EKG today, NSR LVH, repol abn Hx stroke 2019 hx DM BP is high lately. taking norvasc 2.5mg, lisinopril 10, toprol 50mg. Stroke afftected lle and LUE. 06/2019. Was see in [place]. No records. Thinks non-hemorrhagic BS was >600 [...] Acute myocardial infarction: Father. Normal [facility] Comment on above: Result Comment: Elec tronically Signed By: Helder GREENBERG, Antonio Robbins\Date and Time Signed: 04/26/20 14:57 EST Vital Signs Date Time Vital Sign Value Performing Clinician Facility 12-27-2024 10:44-0400 Body temperature 98.01 [degF] Quincy Penn DPM Work Phone: [facility] 12-27-2024 10:44-0400 Diastolic blood pressure 59 mm[Hg] Quincy Penn DPM Work Phone: [facility] 12-27-2024 10:44-0400 Heart rate 64 /min Quincy Penn DPM Work Phone: [facility] 12-27-2024 10:44-0400 Respiratory rate 20 /min Quincy Penn DPM Work Phone: [facility] 12-27-2024 10:44-0400 Systolic blood pressure 132 mm[Hg] Quincy Penn DPM Work Phone: [facility] 12-23-2024 13:29-0400 Body height 182.88 cm Jorge Ball DO Work Phone: [facility] 12-23-2024 13:29-0400 Body mass index (BMI) [Ratio] 34.9 kg/m2 Jorge Ball DO Work Phone: [facility] 12-23-2024 13:29-0400 Body weight 117.02 kg Jorge Ball DO Work Phone: [facility] 12-23-2024 13:29-0400 Diastolic blood pressure 71 mm[Hg] Jorge Ball DO Work Phone: [facility] 12-23-2024 13:29-0400 Heart rate 71 /min Jorge Ball DO Work Phone: [facility] 12-23-2024 13:29-0400 Respiratory rate 14 /min Jorge Ball DO Work Phone: [facility] 12-23-2024 13:29-0400 SaO2% (BldA) [Mass fraction] 97 % Jorge Ball DO Work Phone: [facility] 12-23-2024 13:29-0400 Systolic blood pressure 114 mm[Hg] Jorge Pritchett DO Work Phone: [facility] 12-06-2024 12:05-0400 Respiratory rate 20 /min Quincy Penn DPM Work Phone: [facility] [employer] 11-22-2024 11:01-0400 Body temperature 97.81 [degF] Quincy Penn DPM Work Phone: [facility] [employer] 11-22-2024 11:01-0400 Diastolic blood pressure 60 mm[Hg] Quincy Penn DPM Work Phone: [facility] [employer] 11-22-2024 11:01-0400 Heart rate 67 /min Quincy Penn DPM Work Phone: [facility] [employer] 11-22-2024 11:01-0400 Respiratory rate 20 /min Quincy Penn DPM Work Phone: [facility] [employer] 11-22-2024 11:01-0400 Systolic blood pressure 145 mm[Hg] Quincy Penn DPM Work Phone: [facility] [employer] 11-15-2024 08:54-0400 Body temperature 98.49 [degF] Quincy Penn DPM Work Phone: [facility] [employer] 11-15-2024 08:54-0400 Diastolic blood pressure 61 mm[Hg] Quincy Penn DPM Work Phone: [facility] [employer] 11-15-2024 08:54-0400 Heart rate 61 /min Quincy Penn DPM Work Phone: [facility] [employer] 11-15-2024 08:54-0400 Respiratory rate 18 /min Quincy Penn DPM Work Phone: [facility] [employer] 11-15-2024 08:54-0400 Systolic blood pressure 133 mm[Hg] Quincy Penn DPM Work Phone: [facility] [employer] 11-11-2024 09:30-0400 Diastolic blood pressure 58 mm[Hg] Quincy Penn DPM Work Phone: [facility] [employer] 11-11-2024 09:30-0400 Heart rate 64 /min Quincy Penn DPM Work Phone: [facility] [employer] 11-11-2024 09:30-0400 Respiratory rate 16 /min Quincy Penn DPM Work Phone: [facility] [employer] 11-11-2024 09:30-0400 SaO2% (BldA) [Mass fraction] 96 % Quincy Penn DPM Work Phone: [facility] [employer] 11-11-2024 09:30-0400 Systolic blood pressure 164 mm[Hg] Quincy Penn DPM Work Phone: [facility] [employer] 11-11-2024 08:51-0400 Body temperature 97.7 [degF] Quincy Zelayacaitlintiffany DPM Work Phone: [facility] 11-11-2024 06:30-0400 Body height 182.9 cm Quincy Richardstiffany DPM Work Phone: [facility] [employer] 11-11-2024 06:30-0400 Body mass index (BMI) [Ratio] 35.53 kg/m2 Quincy Davonte DPM Work Phone: [facility] 11-11-2024 06:30-0400 Body weight 118.84 kg Quincy Davonte DPM Work Phone: [facility] 11-09-2024 13:45-0400 Body height 182.9 cm Alice Cochran DPM Work Phone: [facility] 11-09-2024 13:45-0400 Body mass index (BMI) [Ratio] 35.26 kg/m2 Alice Cochran DPM Work Phone: [facility] 11-09-2024 13:45-0400 Body temperature 98.01 [degF] Alice Cochran DPM Work Phone: [facility] 11-09-2024 13:45-0400 Body weight 117.94 kg Alice Cochran DPM Work Phone: [facility] 11-01-2024 11:32-0400 Body temperature 98.1 [degF] Quincy Penn DPM Work Phone: [facility] 11-01-2024 11:32-0400 Diastolic blood pressure 74 mm[Hg] Quincy Penn DPM Work Phone: [facility] 11-01-2024 11:32-0400 Heart rate 69 /min Quincy Penn DPM Work Phone: [facility] 11-01-2024 11:32-0400 Respiratory rate 20 /min Quincy Penn DPM Work Phone: [facility] 11-01-2024 11:32-0400 Systolic blood pressure 153 mm[Hg] Quincy Penn DPM Work Phone: [facility] 10-04-2024 11:14-0400 Body mass index (BMI) [Ratio] 34.75 kg/m2 Quincy Penn DPM Work Phone: [facility] 10-04-2024 11:14-0400 Body temperature 97.59 [degF] Quincy Penn DPM Work Phone: [facility] 10-04-2024 11:14-0400 Body weight 116.21 kg Quincy Penn DPM Work Phone: [facility] 10-04-2024 11:14-0400 Diastolic blood pressure 68 mm[Hg] Quincy Penn DPM Work Phone: [facility] 10-04-2024 11:14-0400 Heart rate 68 /min Quincy Penn DPM Work Phone: [facility] [employer] 10-04-2024 11:14-0400 Respiratory rate 20 /min Quincy Penn DPM Work Phone: [facility] 10-04-2024 11:14-0400 Systolic blood pressure 130 mm[Hg] Quincy Penn DPM Work Phone: [facility] 09-21-2024 14:30-0400 Body height 182.88 cm [facility] 09-21-2024 14:30-0400 Body mass index (BMI) [Ratio] 34.7 kg/m2 [facility] 09-21-2024 14:30-0400 Body weight 116.23 kg [facility] 09-21-2024 14:30-0400 Diastolic blood pressure 56 mm[Hg] [facility] 09-21-2024 14:30-0400 Heart rate 72 /min [facility] 09-21-2024 14:30-0400 Respiratory rate 12 /min [facility] 09-21-2024 14:30-0400 SaO2% (BldA) [Mass fraction] 99 % [facility] 09-21-2024 14:30-0400 Systolic blood pressure 105 mm[Hg] [facility] 09-06-2024 11:34-0400 Body temperature 97.39 [degF] Quincy Penn DPM Work Phone: [facility] 09-06-2024 11:34-0400 Diastolic blood pressure 55 mm[Hg] Quincy Penn DPM Work Phone: [facility] 09-06-2024 11:34-0400 Heart rate 69 /min Quincy Penn DPM Work Phone: [facility] 09-06-2024 11:34-0400 Respiratory rate 16 /min Quincy Penn DPM Work Phone: [facility] 09-06-2024 11:34-0400 Systolic blood pressure 109 mm[Hg] Quincy Penn DPM Work Phone: [facility] 08-16-2024 11:42-0400 Body height 182.9 cm Quincy PECKM Work Phone: [email or web address] 08-16-2024 11:42-0400 Body mass index (BMI) [Ratio] 36.48 kg/m2 Quincy Penn DPM Work Phone: [facility] [employer] 08-16-2024 11:42-0400 Body weight 122 kg Quincy Penn DPM Work Phone: [facility] Comment on above: as of 07/2308-16-2024 11:42-0400 Heart rate 86 /min Quincy Penn DPM Work Phone: [facility] [employer] 08-16-2024 11:34-0400 Body temperature 98.2 [degF] Quincy Penn DPM Work Phone: [facility] [employer] 08-16-2024 11:34-0400 Diastolic blood pressure 54 mm[Hg] Quincy Penn DPM Work Phone: [facility] [employer] 08-16-2024 11:34-0400 Respiratory rate 16 /min Quincy Penn DPM Work Phone: [facility] [employer] 08-16-2024 11:34-0400 Systolic blood pressure 142 mm[Hg] Quincy Penn DPM Work Phone: [facility] 08-05-2024 13:27-0400 Body height 182.88 cm [facility] 08-05-2024 13:27-0400 Body mass index (BMI) [Ratio] 34.9 kg/m2 [facility] 08-05-2024 13:27-0400 Body weight 116.68 kg [facility] 08-05-2024 13:27-0400 Diastolic blood pressure 84 mm[Hg] [facility] 08-05-2024 13:27-0400 Heart rate 76 /min [facility] 08-05-2024 13:27-0400 SaO2% (BldA) [Mass fraction] 98 % [facility] 08-05-2024 13:27-0400 Systolic blood pressure 146 mm[Hg] [facility] 07-23-2024 08:30-0500 Diastolic blood pressure 52 mm[Hg] Maribel Llanos DO Work Phone: [facility] [employer] 07-23-2024 08:30-0500 Heart rate 83 /min Maribel Mejiasbal DO Work Phone: [facility] 07-23-2024 08:30-0500 Respiratory rate 12 /min Maribel Llanos DO Work Phone: [facility] 07-23-2024 08:30-0500 SaO2% (BldA) [Mass fraction] 99 % Maribel Llanos DO Work Phone: [facility] 07-23-2024 08:30-0500 Systolic blood pressure 129 mm[Hg] Maribel Llanos DO Work Phone: [facility] 07-23-2024 05:29-0500 Body mass index (BMI) [Ratio] 36.48 kg/m2 Maribel Llanos DO Work Phone: [facility] 07-23-2024 05:29-0500 Body weight 122 kg Maribel Llanos DO Work Phone: [facility] 07-22-2024 23:51-0500 Body temperature 97.81 [degF] Maribel Llanos DO Work Phone: [facility] Center[facility] 07-12-2024 14:58-0500 Body height 182.88 cm [facility] 07-12-2024 14:58-0500 Body mass index (BMI) [Ratio] 36.2 kg/m2 [facility] 07-12-2024 14:58-0500 Body weight 121.27 kg [facility] 07-12-2024 14:58-0500 Diastolic blood pressure 89 mm[Hg] [facility] 07-12-2024 14:58-0500 Heart rate 61 /min [facility] 07-12-2024 14:58-0500 SaO2% (BldA) [Mass fraction] 96 % [facility] 07-12-2024 14:58-0500 Systolic blood pressure 139 mm[Hg] [facility] 07-12-2024 10:49-0500 Diastolic blood pressure 61 mm[Hg] Quincy Penn DPM Work Phone: [facility] 07-12-2024 10:49-0500 Heart rate 59 /min Quincy Penn DPM Work Phone: [facility] 07-12-2024 10:49-0500 Systolic blood pressure 136 mm[Hg] Quincy Penn DPM Work Phone: [facility] 07-12-2024 10:34-0500 Body temperature 97.5 [degF] Quincy Penn DPM Work Phone: [facility] 07-12-2024 10:34-0500 Respiratory rate 22 /min Quincy Penn DPM Work Phone: [facility] 05-26-2024 15:18-0500 Body height 182.9 cm Alice Cochran DPM Work Phone: [facility] 05-26-2024 15:18-0500 Body mass index (BMI) [Ratio] 36.08 kg/m2 Alice Cochran DPM Work Phone: [facility] 05-26-2024 15:18-0500 Body weight 120.66 kg Alice Cochran DPM Work Phone: [facility] 05-12-2024 11:55-0500 Body height 182.88 cm [facility] 05-12-2024 11:55-0500 Body mass index (BMI) [Ratio] 35.9 kg/m2 [facility] 05-12-2024 11:55-0500 Body weight 119.97 kg [facility] 05-12-2024 11:55-0500 Diastolic blood pressure 74 mm[Hg] [facility] 05-12-2024 11:55-0500 Heart rate 59 /min [facility] 05-12-2024 11:55-0500 Respiratory rate 12 /min [facility] 05-12-2024 11:55-0500 Systolic blood pressure 176 mm[Hg] [facility] 03-23-2024 13:47-0400 Body height 182.9 cm Alice Cochran DPM Work Phone: [facility] 03-23-2024 13:47-0400 Body mass index (BMI) [Ratio] 36.08 kg/m2 Alice Cochran DPM Work Phone: [facility] 03-23-2024 13:47-0400 Body weight 120.66 kg Alice Mary DPM Work Phone: [facility] 02-28-2024 08:15-0400 Diastolic blood pressure 65 mm[Hg] Gabby Orlando MD Work Phone: [facility] 02-28-2024 08:15-0400 Systolic blood pressure 122 mm[Hg] Gabby Orlando MD Work Phone: [facility] 02-28-2024 07:43-0400 SaO2% (BldA) [Mass fraction] 90 % Gabby Orlando MD Work Phone: [facility] 02-28-2024 05:50-0400 Body temperature 98.6 [degF] Gabby Orlando MD Work Phone: [facility] [employer] 02-28-2024 05:50-0400 Heart rate 61 /min Gabby Orlando MD Work Phone: [facility] 02-28-2024 05:50-0400 Respiratory rate 20 /min Gabby Orlando MD Work Phone: [facility] [employer] 02-27-2024 08:02-0400 Body temperature 97.9 [degF] Fred Villegas MD Work Phone: [facility] [employer] 02-27-2024 08:02-0400 Diastolic blood pressure 68 mm[Hg] Fred Villegas MD Work Phone: [facility] [employer] 02-27-2024 08:02-0400 Heart rate 64 /min Fred Villegas MD Work Phone: [facility] 02-27-2024 08:02-0400 Respiratory rate 22 /min Fred Villegas MD Work Phone: [facility] [employer] 02-27-2024 08:02-0400 SaO2% (BldA) [Mass fraction] 96 % Fred Villegas MD Work Phone: [facility] [employer] 02-27-2024 08:02-0400 Systolic blood pressure 153 mm[Hg] Fred Villegas MD Work Phone: [facility] 02-27-2024 05:30-0400 Body mass index (BMI) [Ratio] 36.89 kg/m2 Fred Villegas MD Work Phone: [facility] 02-27-2024 05:30-0400 Body weight 123.38 kg Fred Villegas MD Work Phone: [facility] [employer] 02-25-2024 08:37-0400 Body height 182.9 cm Fred Villegas MD Work Phone: [facility] 02-17-2024 09:55-0400 Body height 182.9 cm Alice Cochran DPM Work Phone: [facility] 02-17-2024 09:55-0400 Body mass index (BMI) [Ratio] 36.08 kg/m2 Alice Cochran DPM Work Phone: [facility] 02-17-2024 09:55-0400 Body temperature 98.01 [degF] Alice Cochran DPM Work Phone: [facility] 02-17-2024 09:55-0400 Body weight 120.66 kg Alice Cochran DPM Work Phone: [facility] 02-05-2024 10:04-0400 Body height 182.9 cm Alice Cochran DPM Work Phone: [facility] 02-05-2024 10:04-0400 Body mass index (BMI) [Ratio] 36.08 kg/m2 Alice Cochran DPM Work Phone: [facility] 02-05-2024 10:04-0400 Body weight 120.66 kg Alice Cochran DPM Work Phone: [facility] 02-03-2024 11:11-0400 Body height 182.88 cm [facility] 02-03-2024 11:11-0400 Body mass index (BMI) [Ratio] 37.4 kg/m2 [facility] 02-03-2024 11:11-0400 Body weight 125.19 kg [facility] 02-03-2024 11:11-0400 Diastolic blood pressure 82 mm[Hg] [facility] 02-03-2024 11:11-0400 Heart rate 70 /min [facility] 02-03-2024 11:11-0400 Respiratory rate 24 /min [facility] 02-03-2024 11:11-0400 Systolic blood pressure 151 mm[Hg] [facility] 12-21-2023 15:30-0400 Diastolic blood pressure 65 mm[Hg] Tigist Correa MD Work Phone: [facility] 12-21-2023 15:30-0400 Heart rate 67 /min Tigist Correa MD Work Phone: [facility] 12-21-2023 15:30-0400 Respiratory rate 12 /min Tigist Correa MD Work Phone: [facility] 12-21-2023 15:30-0400 SaO2% (BldA) [Mass fraction] 98 % Tigist Correa MD Work Phone: [facility] [employer] [facility] 12-21-2023 15:30-0400 Systolic blood pressure 146 mm[Hg] Tigist Correa MD Work Phone: [facility] [employer] 12-21-2023 12:50-0400 Body temperature 97.3 [degF] Tigist Correa MD Work Phone: [facility] [employer] 12-21-2023 08:11-0400 Body height 182.9 cm Tigist Correa MD Work Phone: [facility] [employer] 12-21-2023 08:11-0400 Body mass index (BMI) [Ratio] 36.77 kg/m2 Tigist Correa MD Work Phone: [facility] 12-21-2023 08:11-0400 Body weight 123 kg Tigist Correa MD Work Phone: [facility] 11-10-2023 11:48-0400 Body height 182.88 cm [facility] 11-10-2023 11:48-0400 Body mass index (BMI) [Ratio] 36.6 kg/m2 [facility] 11-10-2023 11:48-0400 Body weight 122.52 kg [facility] 11-10-2023 11:48-0400 Diastolic blood pressure 83 mm[Hg] [facility] 11-10-2023 11:48-0400 Heart rate 74 /min [facility] 11-10-2023 11:48-0400 Respiratory rate 20 /min [facility] 11-10-2023 11:48-0400 Systolic blood pressure 130 mm[Hg] [facility] 11-03-2023 09:05-0400 Diastolic blood pressure 66 mm[Hg] Akira Ferrer MD Work Phone: [facility] 11-03-2023 09:05-0400 SaO2% (BldA) [Mass fraction] 95 % Akira Ferrer MD Work Phone: [facility] [employer] 11-03-2023 09:05-0400 Systolic blood pressure 210 mm[Hg] Akira Ferrer MD Work Phone: [facility] [employer] 11-03-2023 09:00-0400 Heart rate 65 /min Akira Ferrer MD Work Phone: [facility] [employer] 11-03-2023 09:00-0400 Respiratory rate 20 /min Akira Ferrer MD Work Phone: [facility] [employer] 11-03-2023 07:26-0400 Body height 182.9 cm Akira Ferrer MD Work Phone: [facility] 11-03-2023 07:26-0400 Body mass index (BMI) [Ratio] 37.3 kg/m2 Akira Ferrer MD Work Phone: [facility] 11-03-2023 07:26-0400 Body temperature 97.39 [degF] Akira Ferrer MD Work Phone: [facility] 11-03-2023 07:26-0400 Body weight 124.74 kg Akira Ferrer MD Work Phone: [facility] 08-12-2023 11:49-0400 Body height 182.88 cm [facility] 08-12-2023 11:49-0400 Body mass index (BMI) [Ratio] 39.4 kg/m2 [facility] 08-12-2023 11:49-0400 Body weight 131.71 kg [facility] 08-12-2023 11:49-0400 Diastolic blood pressure 80 mm[Hg] [facility] 08-12-2023 11:49-0400 Heart rate 96 /min [facility] 08-12-2023 11:49-0400 Respiratory rate 20 /min [facility] 08-12-2023 11:49-0400 Systolic blood pressure 130 mm[Hg] [facility] 05-13-2023 11:30-0500 Body height 182.88 cm Jorge Yarely Other [employer] Other 05-13-2023 11:30-0500 Body mass index (BMI) [Ratio] 36.37 kg/m2 Jorge Ball Other [employer] Other 05-13-2023 11:30-0500 Body weight 121.66 kg Jorge Ball Other [employer] Other 05-13-2023 11:30-0500 Diastolic blood pressure 75 mm[Hg] Jogre Ball Other [employer] Other 05-13-2023 11:30-0500 Respiratory rate 20 /min Jorge Ball Other [employer] Other 05-13-2023 11:30-0500 SaO2% (BldA) [Mass fraction] 99 % Jorge Ball Other [employer] Other 05-13-2023 11:30-0500 Systolic blood pressure 189 mm[Hg] Jorge Ball Other [employer] Other 02-11-2023 11:30-0400 Body height 182.88 cm Jorge Ball Other [employer] Other 02-11-2023 11:30-0400 Body mass index (BMI) [Ratio] 33.63 kg/m2 Jorge Ball Other [employer] Other 02-11-2023 11:30-0400 Body weight 112.49 kg Jorge Ball Other [employer] Other 02-11-2023 11:30-0400 Diastolic blood pressure 94 mm[Hg] Jorge Ball Other [employer] Other 02-11-2023 11:30-0400 Respiratory rate 20 /min Jorge Ball Other [employer] Other 02-11-2023 11:30-0400 SaO2% (BldA) [Mass fraction] 98 % Jorge Ball Other [employer] Other 02-11-2023 11:30-0400 Systolic blood pressure 195 mm[Hg] Jorge Ball Other [employer] Other 11-11-2022 11:30-0400 Body height 182.88 cm Jorge Ball Other [employer] Other 11-11-2022 11:30-0400 Body mass index (BMI) [Ratio] 34.09 kg/m2 Jorge Ball Other [employer] Other 11-11-2022 11:30-0400 Body weight 114.04 kg Jorge Ball Other [employer] Other 11-11-2022 11:30-0400 Diastolic blood pressure 77 mm[Hg] Jorge Ball Other [employer] Other 11-11-2022 11:30-0400 Respiratory rate 20 /min Jorge Ball Other [employer] Other 11-11-2022 11:30-0400 SaO2% (BldA) [Mass fraction] 98 % Jorge Ball Other [employer] Other 11-11-2022 11:30-0400 Systolic blood pressure 164 mm[Hg] Jorge Ball Other [employer] Other 08-11-2022 12:00-0400 Body height 182.88 cm Jorge Ball Other [employer] Other 08-11-2022 12:00-0400 Body mass index (BMI) [Ratio] 33.39 kg/m2 Jorge Ball Other [employer] Other 08-11-2022 12:00-0400 Body weight 111.68 kg Jorge [employer] Other [employer] Other 08-11-2022 12:00-0400 Diastolic blood pressure 70 mm[Hg] Jorge [employer] Other [employer] Other 08-11-2022 12:00-0400 Respiratory rate 16 /min Jorge [employer] Other [employer] Other 08-11-2022 12:00-0400 Systolic blood pressure 146 mm[Hg] Jorge [employer] Other [employer] Other 07-15-2022 15:00-0500 Diastolic blood pressure 52 mm[Hg] Akira Ferrer MD Work Phone: [employer] Comment on above: Kenya Irizarry CRNA notified. ok to discharge p t and patient notified they need to take BP medication when they get home. 07-15-2022 15:00-0500 Heart rate 62 /min Akira Ferrer MD Work Phone: [employer] 07-15-2022 15:00-0500 Respiratory rate 16 /min Akira Ferrer MD Work Phone: [employer] 07-15-2022 15:00-0500 SaO2% (BldA) [Mass fraction] 95 % Akira Ferrer MD Work Phone: [employer] 07-15-2022 15:00-0500 Systolic blood pressure 162 mm[Hg] Akira Ferrer MD Work Phone: [employer] Comment on above: Kenya Irizarry EXTRACTION SUPERVISOR notified. ok to discharge p t and patient notified they need to take BP medication when they get home. 07-15-2022 14:15-0500 Body temperature 96.69 [degF] Akira Ferrer MD Work Phone: [facility] 07-15-2022 11:08-0500 Body height 182.9 cm Akira Ferrer MD Work Phone: [facility] [employer] 07-15-2022 11:08-0500 Body mass index (BMI) [Ratio] 33.36 kg/m2 Akira Ferrer MD Work Phone: [facility] [employer] 07-15-2022 11:08-0500 Body weight 111.58 kg Akira Ferrer MD Work Phone: [facility] [employer] 07-02-2022 12:30-0500 Body height 182.88 cm Jorge Ball Other [employer] Other 07-02-2022 12:30-0500 Body mass index (BMI) [Ratio] 33.5 kg/m2 Jorge Ball Other [employer] Other 07-02-2022 12:30-0500 Body weight 112.04 kg Jorge Ball Other [employer] Other 07-02-2022 12:30-0500 Diastolic blood pressure 54 mm[Hg] Jorge Ball Other [employer] Other 07-02-2022 12:30-0500 Respiratory rate 16 /min Jorge Ball Other [employer] Other 07-02-2022 12:30-0500 Systolic blood pressure 102 mm[Hg] Jorge Ball Other [employer] Other 06-01-2021 07:40-0500 Body temperature 96.8 [degF] Lamont Vasquez MD Work Phone: [employer] 06-01-2021 07:40-0500 Diastolic blood pressure 72 mm[Hg] Lamont Vasquez MD Work Phone: [employer] 06-01-2021 07:40-0500 Heart rate 66 /min Lamont Vasquez MD Work Phone: [employer] 06-01-2021 07:40-0500 Respiratory rate 18 /min Lamont Vasquez MD Work Phone: [employer] 06-01-2021 07:40-0500 SaO2% (BldA) [Mass fraction] 95 % Lamont Vasquez MD Work Phone: [employer] 06-01-2021 07:40-0500 Systolic blood pressure 156 mm[Hg] Lamont Vasquez MD Work Phone: [employer] 06-01-2021 03:30-0500 Body mass index (BMI) [Ratio] 32.79 kg/m2 Lamont Vasquez MD Work Phone: [employer] 06-01-2021 03:30-0500 Body weight 109.68 kg Lamont Vasquez MD Work Phone: [employer] 05-28-2021 12:51-0500 Body height 182.9 cm Lamont Vasquez MD Work Phone: [employer] Encounters Encounter Date Encounter Type Care Provider Facility Start: 12-27-2024 End: 12-27-2024 ambulatory JORGE PRITCHETT [facility] Start: 12-27-2024 End: 12-27-2024 Subsequent hospital visit by physician Quincy Penn DPM Work Phone: [facility] Comment on above: Critical limb ischem ia of both lower extremities (HCC) (Primary Dx); Eschar of toe; Gangrene of toe of both feet (HCC) Start: 12-23-2024 End: 12-23-2024 ambulatory Jorge Pritchett DO Work Phone: [facility] Work Phone: Start: 12-23-2024 End: 12-23-2024 Patient encounter procedure Jorge Pritchett DO [facility] Work Phone: Start: 12-23-2024 End: 12-23-2024 Patient encounter status Jorge Pritchett DO [facility] Start: 12-06-2024 End: 12-06-2024 ambulatory HALLIECHRISTIAN CORRAL [facility] Start: 12-06-2024 End: 12-06-2024 Subsequent hospital visit by physician Quincy Penn DPM Work Phone: [facility] Comment on above: Critical limb ischem ia of both lower extremities (HCC) (Primary Dx); Eschar of toe; Gangrene of toe of both feet (HCC) Start: 11-22-2024 End: 11-22-2024 [facility] LEV DUARTE [facility] Start: 11-22-2024 End: 11-22-2024 Subsequent hospital visit by physician Quincy Penn DPM Work Phone: [facility] Comment on above: Orthopedic aftercare (Primary Dx); History of amputation of right great toe Start: 11-16-2024 End: 11-16-2024 [facility] ALMA KAN [facility] Start: 11-15-2024 Non-patient / Non-visit Jeremias Lucero DO [facility] Work Phone: Start: 11-15-2024 End: 11-15-2024 ambulatory [facility] Start: 11-15-2024 End: 11-15-2024 Subsequent hospital visit by physician Quincy PECKM Work Phone: [facility] Comment on above: Orthopedic aftercare (Primary Dx); History of amputation of right great toe Start: 11-11-2024 End: 11-11-2024 [facility] Start: 11-11-2024 End: 11-11-2024 Subsequent hospital visit by physician Quincy Penn DPM Work Phone: [facility] Comment on above: Acute osteomyelitis of right foot (HCC); Open wound of toe(s) Start: 11-09-2024 End: 11-09-2024 [employer] Alice Cochran DPM Work Phone: [facility] Start: 11-09-2024 End: 11-09-2024 Bamboo flowsheet Alice Cochran DPM Work Phone: [facility] Start: 11-09-2024 End: 11-09-2024 Patient encounter procedure Alice Cochran DPM Work Phone: [facility] Comment on above: Dermatophytosis of n ail (Primary Dx); Dystrophic nail; Type II diabetes mellitus with peripheral circulatory disorder (HCC); Diabetic polyneuropathy associated with type 2 diabetes mellitus ([facility]) Start: 11-09-2024 End: 11-09-2024 ambulatory ALICE COCHRAN Not Available Start: 11-01-2024 End: [facility] Start: 11-01-2024 End: 11-01-2024 Subsequent hospital visit by physician Jorge Pritchett DO Work Phone: [facility] Start: 11-01-2024 End: 11-01-2024 [facility] Start: 11-01-2024 End: 11-01-2024 Subsequent hospital visit by physician Quincy Penn DPBettina Work Phone: [facility] Comment on above: Osteomyelitis of gre at toe of right foot (HCC) (Primary Dx); Critical limb ischemia of both lower extremities ([facility]); Infection of toe; Chronic ulcer of great toe of right foot with fat layer exposed ([facility]) Start: 10-20-2024 End: 10-22-2024 [facility] Start: 10-20-2024 End: 10-22-2024 Subsequent hospital visit by physician Quincy Penn DPM Work Phone: [facility] Comment on above: Acute on chronic cintia stolic (congestive) heart failure (HCC); ASHD (arteriosclerotic heart disease); S/P angioplasty with stent; Essential hypertension; Mixed hyperlipidemia; PAD (peripheral artery disease); CHRIS (obstructive sleep apnea); Stage 3a chronic kidney disease (HCC) Chronic ulcer of gre at toe of right foot with fat layer exposed ([facility]); Diabetic ulcer of right great toe (HCC) Start: 10-12-2024 ambulatory ALMA KAN [facility] Start: 10-04-2024 End: 10-04-2024 [facility] Start: 10-04-2024 End: 10-04-2024 Subsequent hospital visit by physician Quincy Penn DPM Work Phone: [facility] Comment on above: Chronic ulcer of gre at toe of right foot with fat layer exposed (HCC) (Primary Dx); Diabetic ulcer of right great toe (HCC) Screening PSA (prost ate specific antigen) Start: 09-21-2024 End: 09-21-2024 ambulatory [facility] Work Phone: Start: 09-21-2024 End: 09-21-2024 Patient encounter procedure [facility] ysician Group[facility] Work Phone: Start: 09-20-2024 End: 09-20-2024 ambulatory [facility] Start: 09-20-2024 End: 09-20-2024 Subsequent hospital visit by physician Jorge Pritchett DO Work Phone: [facility] Start: 09-06-2024 End: 09-08-2024 [facility] Start: 09-06-2024 End: 09-08-2024 Subsequent hospital visit by physician Quincy Penn DPM Work Phone: [facility] Comment on above: Chronic ulcer of gre at toe of right foot with fat layer exposed (HCC) (Primary Dx); Critical limb ischemia of both lower extremities Chronic ulcer of gre at toe of right foot with fat layer exposed (HCC) Start: 08-23-2024 End: 08-23-2024 ambulatory [facility] Start: 08-23-2024 End: 08-23-2024 Subsequent hospital visit by physician Jorge Pritchett DO Work Phone: [facility] Start: 08-16-2024 End: 08-18-2024 ambulatory QUINCY PENN [facility] Start: 08-16-2024 End: 08-18-2024 Subsequent hospital visit by physician Yamileth Bach Dr Room 4 [facility] Comment on above: Eschar of toe; Chronic ulcer of great toe of right foot with fat layer exposed (HCC) Start: 08-16-2024 End: 08-16-2024 ambulatory [facility] Start: 08-16-2024 End: 08-16-2024 Subsequent hospital visit by physician Quincy Penn DPM Work Phone: [facility] Comment on above: Chronic ulcer of gre at toe of right foot with fat layer exposed (HCC) (Primary Dx); Eschar of toe; Critical limb ischemia of both lower extremities (HCC); Gangrene of toe of both feet (HCC) Start: 08-08-2024 End: 08-08-2024 ambulatory ALICE COCHRAN Not Available Start: 08-05-2024 End: 08-05-2024 Patient encounter procedure [facility] ysician [facility] Work Phone: Start: 08-02-2024 Non-patient / Non-visit [facility] Physician [facility] Work Phone: Start: 08-01-2024 Non-patient / [facility]visit [facility]: Start: 07-30-2024 Non-patient / Non-visit [facility] Work Phone: Start: 07-23-2024 End: 07-29-2024 Evaluation and management of inpatient Werner Sunshine MD Facility:[facility] Start: 07-22-2024 End: 07-23-2024 Emergency department patient visit Maribel Llanos DO Work Phone: [facility] Emergency Department Comment on above: Acute renal failure superimposed on chronic kidney disease, unspecified acute renal failure type, unspecified CKD stage (Primary Dx); Dehydration Start: 07-13-2024 End: 07-13-2024 ambulatory NILES GLASS [facility] Start: 07-13-2024 End: 07-13-2024 Subsequent hospital visit by physician Jorge Pritchett DO Work Phone: [facility] Start: 07-13-2024 End: 07-13-2024 ambulatory ALMA KAN [facility] Start: 07-12-2024 End: 07-12-2024 ambulatory [facility] Work Phone: Start: 07-12-2024 End: 07-12-2024 Patient encounter procedure [facility] Work Phone: Start: 07-12-2024 End: 07-12-2024 ambulatory JORGE PRITCHETT [facility] Start: 07-12-2024 End: 07-12-2024 Subsequent hospital visit by physician Quincy Penn DPM Work Phone: [facility] Comment on above: Gangrene of toe of b oth feet (HCC) (Primary Dx); Eschar of toe; Critical limb ischemia of both lower extremities ([facility]) Start: 06-27-2024 End: 06-27-2024 ambulatory HARRISON U LEISA [facility] Start: 06-27-2024 End: 06-27-2024 Subsequent hospital visit by physician Jorge Pritchett DO Work Phone: [facility] Start: 05-26-2024 End: 05-26-2024 Patient encounter procedure Alice Cochran DPM Work Phone: [facility] Comment on above: Dermatophytosis of n ail (Primary Dx); Dystrophic nail; Type II diabetes mellitus with peripheral circulatory disorder ([facility]); Diabetic polyneuropathy associated with type 2 diabetes mellitus ([facility]) Start: 05-26-2024 End: 05-26-2024 ambulatory ALICE COCHRAN Not Available Start: 05-26-2024 End: 05-26-2024 Bamboo flowsheet Alice Cochran DPM Work Phone: [facility] Start: 05-26-2024 End: 05-26-2024 Bamboo flowsheet Alice Cochran DPM Work Phone: [facility] Start: 05-13-2024 End: 05-13-2024 [facility] Start: 05-13-2024 End: 05-13-2024 Subsequent hospital visit by physician Jorge Pritchett DO Work Phone: [facility] Start: 05-12-2024 Non-patient / Non-visit [facility] Work Phone: Start: 05-12-2024 End: 05-12-2024 Patient encounter procedure [facility] Work Phone: Start: 05-11-2024 End: 05-11-2024 [facility] Start: 05-11-2024 End: 05-11-2024 Subsequent hospital visit by physician Jorge Pritchett DO Work Phone: [facility] Start: 05-06-2024 End: 05-06-2024 [facility] Start: 05-06-2024 End: 05-06-2024 Subsequent hospital visit by physician Jorge Pritchett DO Work Phone: [facility] Comment on above: Acute on chronic cintia stolic (congestive) heart failure ([facility]); ASHD (arteriosclerotic heart disease); S/P angioplasty with stent; Essential hypertension; Mixed hyperlipidemia; PAD (peripheral artery disease) ([facility]); CHRIS (obstructive sleep apnea); Stage 3a chronic kidney disease ([facility]); Obesity, unspecified class, unspecified obesity type, unspecified whether serious comorbidity present; Acute on chronic combined systolic and diastolic congestive heart failure (HCC) Start: 04-25-2024 End: 04-27-2024 [facility] FLOYD VEE [facility] Start: 04-25-2024 End: 04-27-2024 Subsequent hospital visit by physician Floyd Vee MD Work Phone: [facility] Comment on above: Critical limb ischem ia of both lower extremities (HCC) Start: 04-13-2024 End: 04-13-2024 [facility] Start: 04-01-2024 End: 04-01-2024 ambulatory HARRISON BELTRAN [facility] Start: 04-01-2024 End: 04-01-2024 Subsequent hospital visit by physician Jorge Pritchett DO Work Phone: [facility] Start: 03-23-2024 End: 03-23-2024 Bamboo flowsheet Alice Cochran DPM Work Phone: [facility] Start: 03-23-2024 End: 03-23-2024 Bamboo flowsheet Alice Cochran DPM Work Phone: [facility] Start: 03-23-2024 End: 03-23-2024 Patient encounter procedure Alice Cochran DPM Work Phone: [facility] Comment on above: Dermatophytosis of n ail (Primary Dx); Dystrophic nail; Type II diabetes mellitus with peripheral circulatory disorder ([facility]); Diabetic polyneuropathy associated with type 2 diabetes mellitus ([facility]) Start: 03-23-2024 End: 03-23-2024 ambulatory ALICE COCHRAN Not Available Start: 03-15-2024 End: 03-15-2024 ambulatory ALMA Hinkle [facility] Start: 03-15-2024 End: 03-15-2024 Subsequent hospital visit by physician Jorge Pritchett DO Work Phone: [facility] Comment on above: Acute on chronic cintia stolic (congestive) heart failure ([facility]); ASHD (arteriosclerotic heart disease); Essential hypertension; Mixed hyperlipidemia; PAD (peripheral artery disease) ([facility]); CHRIS (obstructive sleep apnea); Obesity, unspecified class, unspecified obesity type, unspecified whether serious comorbidity present Start: 03-08-2024 End: 03-08-2024 ambulatory FLOYD VEE [facility] Start: 02-28-2024 End: 02-28-2024 Emergency department patient visit Gabby Orlando MD Work Phone: [facility] ED Comment on above: Bilateral lower leg cellulitis (Primary Dx); Pain in left lower leg Start: 02-24-2024 End: 02-27-2024 Evaluation and management of inpatient Fred Villegas MD Work Phone: [facility] Comment on above: Bilateral lower leg cellulitis (Primary Dx); Edema of both lower extremities due to peripheral venous insufficiency; Chronic diastolic congestive heart failure (HCC) Start: 02-24-2024 End: 02-24-2024 ambulatory [facility] Start: 02-17-2024 End: 02-17-2024 Bamboo flowsheet Alice Cochran DPM Work Phone: [facility] Start: 02-17-2024 End: 02-17-2024 Bamboo flowsheet Alice Cochran DPM Work Phone: [facility] Start: 02-17-2024 End: 02-17-2024 Office outpatient visit 15 minutes Alice Cochran DPM Work Phone: [facility] Comment on above: Cellulitis of left f oot (Primary Dx); Type II diabetes mellitus with peripheral circulatory disorder (CMS/HCC); Diabetic polyneuropathy associated with type 2 diabetes mellitus (CMS/HCC); Skin ulcer of midfoot region, left, limited to breakdown of skin ([facility]/HCC) Start: 02-17-2024 End: 02-17-2024 ambulatory ALICE COCHRAN Not Available Start: 02-09-2024 End: 02-09-2024 ambulatory [facility] Start: 02-09-2024 End: 02-09-2024 Subsequent hospital visit by physician Jorge Pritchett DO Work Phone: [facility] Start: 02-09-2024 End: 02-09-2024 ambulatory [facility] Start: 02-05-2024 End: 02-05-2024 Bamboo flowsheet Alice Cochran DPM Work Phone: [facility] Start: 02-05-2024 End: 02-05-2024 Bamboo flowsheet Alice Cochran DPM Work Phone: [facility] Start: 02-05-2024 End: 02-05-2024 ambulatory ALICE COCHRAN Not Available Start: 02-05-2024 End: 02-05-2024 Office outpatient visit 25 minutes Alice Cochran DPM Work Phone: [facility] Comment on above: Cellulitis of left f oot (Primary Dx); Type II diabetes mellitus with peripheral circulatory disorder (CMS/HCC); Diabetic polyneuropathy associated with type 2 diabetes mellitus (CMS/HCC); Skin ulcer of midfoot region, left, limited to breakdown of skin (CMS/HCC) Start: 02-03-2024 End: 02-03-2024 ambulatory [facility] Work Phone: Start: 02-03-2024 End: 02-03-2024 Patient encounter procedure [facility]ician [facility] Work Phone: Start: 01-26-2024 ambulatory [facility] Start: 01-04-2024 End: 01-04-2024 ambulatory ALICE COCHRAN Not Available Start: 12-21-2023 End: 12-21-2023 ambulatory TIGIST CORREA [facility] Start: 12-21-2023 End: 12-21-2023 Subsequent hospital visit by physician Tigist Correa MD Work Phone: [facility] Cardiac [facility] Comment on above: CHRIS (obstructive sle ep apnea) (Primary Dx); Abnormal stress test; Chest pain; CAD (coronary artery disease); Constipation, unspecified constipation type; 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, unspecified vessel or lesion type ([facility]) Start: 12-02-2023 End: 12-02-2023 Subsequent hospital visit by physician Yumiko Montes PTA [facility] Comment on above: Arrived Start: 11-11-2023 End: 11-11-2023 Subsequent hospital visit by physician [facility]tt DO [facility] Comment on above: Chronic diastolic he art failure (HCC) Start: 11-10-2023 End: 11-10-2023 Encounter for general adult medical examination without abnormal findings [facility] Start: 11-10-2023 End: 11-10-2023 Patient encounter [facility] Work Phone: Start: 11-09-2023 End: 11-09-2023 Subsequent hospital visit by physician Yumiko Montes PTA [facility] Comment on above: Arrived Start: 11-06-2023 End: 11-06-2023 Subsequent hospital visit by physician Yumiko Montes PTA [facility] Comment on above: Arrived Start: 11-03-2023 End: 11-03-2023 Subsequent hospital visit by physician Akira Ferrer MD Work Phone: [facility] Start: 10-22-2023 End: 10-22-2023 Subsequent hospital visit by physician Yumiko Montes PTA [facility] Comment on above: Arrived Start: 08-12-2023 End: 08-12-2023 ambulatory [facility] Work Phone: Start: 08-12-2023 End: 08-12-2023 Patient encounter procedure [facility] y[facility]ician [facility] Work Phone: Start: 08-05-2023 End: 08-05-2023 Subsequent hospital visit by physician Jorge Pritchett DO Work Phone: [facility] Comment on above: Screening PSA (prost ate specific antigen); Incomplete emptying of bladder Start: 07-27-2023 Non-patient / Non-visit [facility] Work Phone: Start: 07-27-2023 Non-patient / Non-visit [facility] Work Phone: Start: 06-30-2023 End: 06-30-2023 Subsequent hospital visit by physician Jorge Pritchett DO Work Phone: [facility] Start: 06-02-2023 End: 06-02-2023 ambulatory Jorge Pritchett Other [address] Other Start: 06-02-2023 Telephone encounter Jorge Ball [facility] Start: 05-13-2023 End: 05-13-2023 ambulatory Jorge Ball Other [employer] Other Start: 05-13-2023 Office outpatient vi sit 25 minutes Jorge Ball [facility] Start: 05-07-2023 End: 05-07-2023 ambulatory Jorge Ball Other [employer] Other Start: 05-07-2023 Telephone encounter Jorge Ball [facility] Start: 04-26-2023 End: 04-26-2023 ambulatory Jorge Ball Other [employer] Other Start: 04-26-2023 Telephone encounter Jorge Ball [facility] Start: 04-19-2023 End: 04-19-2023 ambulatory Jorge Ball Other [employer] Other Start: 04-19-2023 Telephone encounter Jorge Ball [facility] Start: 04-06-2023 End: 04-06-2023 ambulatory Jorge Ball Other [employer] Other Start: 04-06-2023 Telephone encounter Jorge Ball [facility] Start: 03-30-2023 End: 03-30-2023 ambulatory Jorge Ball Other [employer] Other Start: 03-30-2023 Telephone encounter Jorge Ball [facility] Start: 02-26-2023 End: 02-26-2023 ambulatory Jorge Ball Other [employer] Other Start: 02-26-2023 Telephone encounter Jorge Ball [facility] Start: 02-11-2023 End: 02-11-2023 ambulatory Jorge Ball Other [employer] Other Start: 02-11-2023 Office outpatient vi sit 25 minutes Jorge Ball [facility] Start: 01-15-2023 End: 01-17-2023 Subsequent hospital visit by physician aHrrison Beltran DO Work Phone: [facility] Comment on above: Arrived Start: 01-06-2023 End: 01-06-2023 ambulatory Jorge Pritchett Other [employer] Other Start: 01-06-2023 Telephone encounter [facility] Start: 12-29-2022 End: 12-29-2022 ambulatory Jorge Pritchett Other [employer] Other Start: 12-29-2022 Telephone encounter [facility] Start: 12-22-2022 End: 12-24-2022 Subsequent hospital visit by physician Yamileth Bach Dr Room 4 [facility] Comment on above: Dyspnea on exertion Start: 12-18-2022 End: 12-18-2022 Subsequent hospital visit by physician Rashel Cárdenas PT [facility] Therapy Comment on above: Arrived Start: 12-11-2022 End: 12-11-2022 Subsequent hospital visit by physician Rashel Cárdenas PT [facility] Comment on above: Arrived Start: 12-03-2022 End: 12-03-2022 Subsequent hospital visit by physician Shirin Bajwa PTA [facility] Comment on above: Arrived Start: 12-01-2022 End: 12-01-2022 Subsequent hospital visit by physician Rashel Cárdenas PT [facility] Comment on above: Arrived Start: 11-14-2022 End: 11-14-2022 Subsequent hospital visit by physician Sharonda Gonzalez PTA [facility] Comment on above: Arrived Start: 11-11-2022 End: 11-11-2022 ambulatory Jorge Pritchett Other [address] Other Start: 11-11-2022 Office outpatient vi sit 25 minutes Jorge Pritchett [facility] Start: 11-07-2022 End: 11-07-2022 Subsequent hospital visit by physician Rashel Cárdenas PT [facility] Comment on above: Arrived Start: 11-06-2022 End: 11-06-2022 ambulatory Jorge Pritchett Facility:[facility] Start: 11-06-2022 End: 11-06-2022 ambulatory PAYROLL AUDITOR-C Pia Douglass Work Phone: [facility] Work Phone: Start: 11-06-2022 End: 11-06-2022 Patient encounter procedure PAYROLL AUDITOR-C Pia Douglass Work Phone: [facility] [place] Work Phone: Start: 10-28-2022 End: 10-28-2022 ambulatory Jorge Pritchett Other [employer] Other Start: 10-28-2022 Telephone encounter Jorge Pritchett [facility] Start: 10-27-2022 End: 10-27-2022 Subsequent hospital visit by physician Shirin Bajwa PTA [facility] Comment on above: Arrived Start: 10-20-2022 End: 10-20-[address] JORGE PRITCHETT Facility:[facility] Start: 10-13-2022 End: 10-13-[address] ALICE CIFUENTES Facility:[facility] Start: 10-03-2022 End: 10-03-2022 Subsequent hospital visit by physician Shirin Bajwa PTA [facility] Comment on above: Arrived Start: 09-29-2022 End: 09-29-2022 Subsequent hospital visit by physician Shirin Bajwa PTA [facility] Comment on above: Arrived Start: 09-15-2022 End: 09-15-2022 Subsequent hospital visit by physician Shirin Bajwa PTA [facility] Comment on above: Arrived Start: 09-09-2022 End: 09-09-2022 ambulatory Jorge Pritchett Other [employer] Other Start: 09-09-2022 Telephone encounter Jorge ACUÑA [facility] Start: 09-05-2022 End: 09-05-2022 Subsequent hospital visit by physician Chris Sauceda PT [facility] Comment on above: Arrived Start: 09-01-2022 End: 09-01-2022 Subsequent hospital visit by physician Shirin Bajwa PTA [facility] Comment on above: Arrived Start: 08-29-2022 End: 08-29-2022 Subsequent hospital visit by physician Shirin Bajwa FINANCIAL SERVICES TECHNICIAN [facility] Comment on above: Arrived Start: 08-25-2022 End: 08-25-2022 Subsequent hospital visit by physician Chris Sauceda PT [facility] Comment on above: Arrived Start: 08-20-2022 End: 08-20-2022 Subsequent hospital visit by physician Kelly Amaya PT [facility] Comment on above: Arrived Start: 08-11-2022 End: 08-11-2022 ambulatory Jorge Pritchett Other [employer] Other Start: 08-11-2022 Office outpatient vi sit 25 minutes Jorge Pritchett [facility] Start: 08-05-2022 End: 08-05-2022 Subsequent hospital visit by physician Jorge Pritchett DO Work Phone: [facility] Laboratory Comment on above: BPH with obstruction /lower urinary tract symptoms; Post-operative state Start: 07-15-2022 End: 07-15-2022 ambulatory Jorge Pritchett Other [employer] Other Start: 07-15-2022 Telephone encounter Jorge Pritchett [facility] Start: 07-15-2022 End: 07-15-2022 Subsequent hospital visit by physician Akira Ferrer MD Work Phone: [facility] OR Start: 07-14-2022 End: 07-14-2022 Subsequent hospital visit by physician [facility] Card[facility] Stress Room [facility] Stress Lab Comment on above: Arrived Start: 07-11-2022 End: 07-11-2022 Patient encounter status [facility] Room [facility] Stress Lab Start: 07-11-2022 End: 07-11-2022 Subsequent hospital visit by physician [facility] Card[facility] Stress Room [facility] Stress Lab Comment on above: Preop [...] 07-02-2022 End: 07-02-2022 ambulatory Jorge Pritchett Other [employer] Other Start: 07-02-2022 Encounter for other preprocedural examination Jorge Pritchett [facility] Start: 07-02-2022 Office outpatient vi sit 25 minutes Jorge Pritchett [facility] Start: 06-25-2022 End: 06-25-2022 Subsequent hospital visit by physician Jorge Pritchett DO Work Phone: [facility] Laboratory Comment on above: BPH with obstruction /lower urinary tract symptoms; Incomplete emptying of bladder; Frequency of urination; Urgency of micturition Start: 05-24-2022 End: 05-24-2022 Subsequent hospital visit by physician Jorge Bernal Phone: [facility] Start: 05-23-2022 End: 05-23-2022 Subsequent hospital visit by physician Huang Urbina PT [facility] Comment on above: Arrived Start: 05-23-2022 End: 05-23-2022 ambulatory Jorge Pritchett Other [employer] Other Start: 05-23-2022 Telephone encounter Jorge Pritchett [facility] Start: 05-22-2022 End: 05-22-2022 Subsequent hospital visit by physician Huang Urbina PT [facility] Comment on above: Arrived Start: 05-20-2022 End: 05-22-2022 Subsequent hospital visit by physician [facility] Ultrasound Room 2 [facility] Ultrasound Comment on above: Incomplete bladder e mptying Start: 05-14-2022 End: 05-14-2022 ambulatory PETTY ANGULO . 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); Intermittent claudication (HCC); Primary hypertension; Mixed hyperlipidemia; CHRIS (obstructive sleep apnea); Stage 3 chronic kidney disease, unspecified whether stage 3a or 3b CKD (HCC); Primary hyperparathyroidism (HCC); Adenoma of left adrenal gland Start: 05-06-2022 End: 05-06-2022 Subsequent hospital visit by physician Huang Urbina PT [facility] Comment on above: Arrived Start: 05-02-2022 End: 05-02-2022 Subsequent hospital visit by physician Doc Agrawal FINANCIAL SERVICES TECHNICIAN [facility] Comment on above: Arrived Start: 04-02-2022 End: 04-02-2022 Subsequent hospital visit by physician Doc Agrawal FINANCIAL SERVICES TECHNICIAN [facility] Comment on above: Arrived Start: 03-31-2022 End: 03-31-2022 Subsequent hospital visit by physician Chris Sauceda PT [facility] Comment on above: Arrived Start: 03-26-2022 End: 03-26-2022 Subsequent hospital visit by physician Shirin Bajwa FINANCIAL SERVICES TECHNICIAN [facility] Comment on above: Arrived Start: 03-24-2022 End: 03-24-2022 Subsequent hospital visit by physician Huang Urbina PT [facility] Comment on above: Arrived Start: 03-20-2022 End: 03-20-2022 Subsequent hospital visit by physician Jorge Pritchett DO Work Phone: [facility] Comment on above: Incomplete emptying of bladder Start: 03-18-2022 End: 03-18-2022 Subsequent hospital visit by physician Chris Sauceda PT [facility] Comment on above: Arrived Start: 03-14-2022 End: 03-14-2022 Subsequent hospital visit by physician Yumiko Montes FINANCIAL SERVICES TECHNICIAN [facility] Comment on above: Arrived Start: 03-06-2022 End: 03-06-2022 Subsequent hospital visit by physician Rashel Cárdenas PT [facility] Comment on above: Arrived Start: 03-04-2022 End: 03-04-2022 Subsequent hospital visit by physician Yumiko Montes FINANCIAL SERVICES TECHNICIAN [facility] Comment on above: Arrived Start: 02-28-2022 End: 02-28-2022 Subsequent hospital visit by physician Huang Urbina PT [facility] Comment on above: Arrived Start: 02-18-2022 End: 02-18-2022 Subsequent hospital visit by physician Colton Lim [facility] Comment on above: Arrived Start: 02-14-2022 End: 02-14-2022 Subsequent hospital visit by physician Huang Urbina PT [facility] Comment on above: Arrived Start: 02-07-2022 End: 02-07-2022 Subsequent hospital visit by physician Yumiko Montes FINANCIAL SERVICES TECHNICIAN [facility] Comment on above: Arrived Start: 01-31-2022 End: 01-31-2022 Subsequent hospital visit by physician Doc Agrawal PTA [facility] Comment on above: Arrived Start: 01-28-2022 End: 01-28-2022 Subsequent hospital visit by physician Rashel Cárdenas PT [facility] Comment on above: Arrived Start: 01-24-2022 End: 01-24-2022 Subsequent hospital visit by physician Rashel Cárdenas PT [facility] Comment on above: Arrived Start: 01-21-2022 End: 01-21-2022 Subsequent hospital visit by physician Doc Agrawal PTA [facility] Comment on above: Arrived Start: 01-16-2022 End: 01-16-2022 Subsequent hospital visit by physician Rashel Cárdenas PT [facility] Comment on above: Arrived Start: 01-09-2022 End: 01-09-2022 ambulatory Pia Douglass Facility:[facility] Start: 01-09-2022 End: 01-09-2022 Patient encounter procedure PAYROLL AUDITOR-C Pia Douglass Work Phone: [facility] [place] Start: 01-08-2022 End: 01-08-2022 Subsequent hospital visit by physician Doc Agrawal PTA [facility] Comment on above: Arrived Start: 01-06-2022 End: 01-06-2022 Subsequent hospital visit by physician Doc Agrawal PTA [facility] Comment on above: Arrived Start: 01-03-2022 End: 01-03-2022 Subsequent hospital visit by physician Doc Agrawal PTA [facility] Comment on above: Arrived Start: 01-01-2022 End: 01-01-2022 Subsequent hospital visit by physician Doc Agrawal PTA [facility] Comment on above: Arrived Start: 12-30-2021 End: 12-30-2021 Subsequent hospital visit by physician Doc Agrawal PTA [facility] Comment on above: Arrived Start: 12-27-2021 End: 12-27-2021 Subsequent hospital visit by physician Rashel Cárdenas PT [facility] Comment on above: Arrived Start: 12-26-2021 End: 12-26-2021 Subsequent hospital visit by physician Doc Agrawal PTA [facility] Comment on above: Arrived Start: 12-24-2021 End: 12-24-2021 Subsequent hospital visit by physician Colton Lim [facility] Comment on above: Arrived Start: 12-18-2021 End: 12-18-2021 Subsequent hospital visit by physician Doc Agrawal PTA [facility] Comment on above: Arrived Start: 12-17-2021 End: 12-17-2021 Subsequent hospital visit by physician Rashel Cárdenas PT [facility] Comment on above: Arrived Start: 12-09-2021 End: 12-09-2021 Subsequent hospital visit by physician [facility] Cardiopulm Rehab Rm 4 [facility] Comment on above: Arrived Start: 12-05-2021 End: 12-05-2021 Subsequent hospital visit by physician [facility] Cardiopulm Rehab Rm 4 [facility] Comment on above: Arrived Start: 12-02-2021 End: 12-02-2021 Subsequent hospital visit by physician [facility] Cardiopulm Rehab Rm 4 [facility] Comment on above: Arrived Start: 11-21-2021 End: 11-21-2021 Subsequent hospital visit by physician [facility] Rm 2 [facility] Comment on above: Arrived Start: 11-18-2021 End: 11-18-2021 Subsequent hospital visit by physician Josefa Ruvalcaba RD, DEBORAH Work Phone: [facility] Diet and Nutrition Comment on above: Arrived Start: 10-31-2021 End: 10-31-2021 Subsequent hospital visit by physician [facility] Cardiopulm Rehab Rm 2 [facility] Comment on above: Arrived Start: 10-28-2021 End: 10-28-2021 Subsequent hospital visit by physician [facility] Cardiopulm Rehab Rm 2 [facility] Comment on above: Arrived Start: 10-23-2021 End: 10-23-2021 Subsequent hospital visit by physician [facility] Cardiopulm Rehab Rm 2 [facility] Comment on above: Arrived Start: 10-17-2021 End: 10-17-2021 Subsequent hospital visit by physician [facility] Cardiopulm Rehab Rm 2 [facility] Comment on above: Arrived Start: 10-14-2021 End: 10-14-2021 Subsequent hospital visit by physician [facility] Cardiopulm Rehab Rm 2 [facility] Comment on above: Arrived Start: 10-03-2021 End: 10-03-2021 Subsequent hospital visit by physician [facility] Cardiopulm Rehab Rm 2 [facility] Comment on above: Arrived Start: 09-30-2021 End: 09-30-2021 Subsequent hospital visit by physician [facility] Cardiopulm Rehab Rm 2 [facility] Comment on above: Arrived Start: 09-27-2021 End: 09-27-2021 Subsequent hospital visit by physician Yamileth Cr Education Room [facility] Card[facility] Rehab Comment on above: Arrived Start: 09-11-2021 End: 09-13-2021 Subsequent hospital visit by physician [facility] Cat Scan Room [facility] CT Scan Comment on above: Uricaciduria Start: 06-12-2021 End: 06-20-2021 Evaluation and management of inpatient [facility] Start: 05-27-2021 End: 06-01-2021 Evaluation and management of inpatient Lamont Vasquez MD Work Phone: [facility] Start: 04-24-2021 End: 04-24-2021 Subsequent hospital visit by physician Reyes Sleep Rm 1 [facility] Comment on above: Arrived Start: 07-25-2020 End: 07-25-2020 Subsequent hospital visit by physician Pia Douglass [facility] Laboratory Comment on above: BPH with obstruction /lower urinary tract symptoms; Incomplete emptying of bladder Procedures Date Procedure Procedure Detail Performing Clinician Start: 12-06-2024 Renal function panel Steen rubi Corral PRESIDENT AND CMO - ENVIRONMENTAL EDUCATOR Work Phone: Start: 12-06-2024 Urinalysis microscopic only Hallie Corral PRESIDENT AND CMO - ENVIRONMENTAL EDUCATOR Work Phone: Start: 12-06-2024 Urnls dip stick/tabl et rgnt auto w/o microscopy Hallie Corral PRESIDENT AND CMO - ENVIRONMENTAL EDUCATOR Work Phone: Start: 11-11-2024 GLUCOSE, WHOLE BLOOD Cherise hn W Bremyer DPM Work Phone: Start: 11-11-2024 GLUCOSE, WHOLE BLOOD Cherise hn W Bremyer DPM Work Phone: Start: 11-01-2024 Renal function panel Br vanviola Duarte PRESIDENT AND CMO - ENVIRONMENTAL EDUCATOR Work Phone: Start: 11-01-2024 Urinalysis microscopic only Lev Duarte PRESIDENT AND CMO - ENVIRONMENTAL EDUCATOR Work Phone: Start: 11-01-2024 Urnls dip stick/tabl et rgnt auto w/o microscopy Lev Duarte PRESIDENT AND CMO - ENVIRONMENTAL EDUCATOR Work Phone: Start: 10-20-2024 Basic metabolic pane l calcium total Lev Duarte PRESIDENT AND CMO - ENVIRONMENTAL EDUCATOR Work Phone: Start: 10-04-2024 Hemoglobin glycosylated a1c [...] Start: 07-13-2024 Renal function panel Negrito Glass PRESIDENT AND CMO - ENVIRONMENTAL EDUCATOR Work Phone: Start: 06-27-2024 Renal function panel [...] TO MG FOR LOW K Cassie Lantigua PRESIDENT AND CMO - [facility] Work Phone: Start: 02-27-2024 Blood count complete auto&auto difrntl wbc Cassie Lantigua PRESIDENT AND CMO - [facility] Work Phone: Start: 02-26-2024 GLUCOSE, WHOLE BLOOD Ch marci Villegas MD Work Phone: Start: 02-26-2024 GLUCOSE, WHOLE BLOOD Ch marci Villegas MD Work Phone: Start: 02-26-2024 GLUCOSE, WHOLE BLOOD Ch marci Villegas MD Work Phone: Start: 02-26-2024 GLUCOSE, WHOLE BLOOD Ch marci Villegas MD Work Phone: Start: 02-26-2024 BASIC METABOLIC PANE L W/ REFLEX TO MG FOR LOW K Cassie Lantigua PRESIDENT AND CMO - [facility] Work Phone: Start: 02-26-2024 Blood count complete auto&auto difrntl wbc Cassie Lantigua PRESIDENT AND CMO - ENVIRONMENTAL EDUCATOR Work Phone: Start: 02-25-2024 End: 02-25-2024 GLUCOSE, WHOLE BLOOD Fred Villegas MD Work Phone: Start: 02-25-2024 Assay of [facility] ENVIRONMENTAL EDUCATOR Work Phone: Start: 02-25-2024 BASIC METABOLIC PANE L W/ REFLEX TO MG FOR LOW K Cassie Cosby [facility] [employer] PAC ENVIRONMENTAL EDUCATOR Work Phone: Start: 02-24-2024 GLUCOSE, WHOLE BLOOD Kalyn Villegas MD Work Phone: Start: 02-24-2024 GLUCOSE, WHOLE BLOOD Kalyn Villegas MD Work Phone: Start: 02-24-2024 End: 02-24-2024 Radiologic examination tibia & fibula 2 views Bettina Burks PRESIDENT AND CMO [employer] [facility] Work Phone: Start: 02-24-2024 Comprehensive metabo lic panel Bettina Burks PRESIDENT AND CMO [employer] ENVIRONMENTAL EDUCATOR Work Phone: Start: 02-24-2024 Culture bacterial quanttative colony count urine Bettina Burks PRESIDENT AND CMO [employer] [facility] Work Phone: Start: 02-24-2024 Urnls dip stick/tabl et rgnt auto w/o microscopy Bettina Burks PRESIDENT AND CMO [employer] [facility] Work Phone: Start: 02-09-2024 Basic metabolic [...] metabolic pane l calcium total Kena Boyd PRESIDENT AND CMO - EXTRACTION SUPERVISOR Work Phone: Start: 11-03-2023 Radiologic exam ches t single view Kena Boyd PRESIDENT AND CMO - EXTRACTION SUPERVISOR Work Phone: Start: 11-03-2023 GLUCOSE, WHOLE BLOOD [...] exam ches t 2 views Nancy Roe PRESIDENT AND CMO - ENVIRONMENTAL EDUCATOR Work Phone: Start: 07-11-2022 Echo tthrc r-t [...] r eal time w/image complete Arabella [place]ero [place] Work Phone: Start: 05-13-2022 PSA screening Jorge Pritchett DO Work Phone: Comment on above: The Cyndi ECLIA as say is used. Results obtained with different assay methods cannot be used interchangeably. Start: 05-13-2022 Basic metabolic pane l calcium total Arabella Lucero [place] [employer] Work Phone: Start: 03-20-2022 Basic metabolic pane l calcium total Nancy W Jyothi PRESIDENT AND CMO - ENVIRONMENTAL EDUCATOR Work Phone: Start: 09-11-2021 Ct abdomen & pelvis w/o contrast material Arabella RAINES-[employer] Work Phone: Start: 06-01-2021 Basic metabolic pane [...] Phone: Start: 05-30-2021 Assay of troponin quantitative Beaat Harris PA-C Work Phone: Start: 05-30-2021 Basic [...] 2d w/wom-mode compl spec&colr d Cassie Morejon PRESIDENT AND CMO - ENVIRONMENTAL EDUCATOR Work Phone: Start: 05-28-2021 GLUCOSE, WHOLE BLOOD [...] ast 12 lds i&r only Cassie Morejon [employer] Work Phone: Start: 05-27-2021 BASIC METABOLIC PANE L W/ REFLEX TO MG FOR LOW K Cassie Morejon [employer] Work Phone: Start: 05-27-2021 Hemoglobin glycosylated a1c Cassie Morejon [employer] Work Phone: Start: 05-27-2021 Radiologic exam ches t 2 views Cassie Morejon [employer] Work Phone: Start: 07-25-2020 Urnls dip stick/tabl [...] DTaP/Tdap/Td vaccine (2 - Td or Tdap) [employer] Start: 11-27-2026 Screening for malignant neoplasm of colon [employer] Start: 12-06-2025 GFR test (Diabetes, CKD 3-4, OR last GFR 15-59) GFR test (Diabetes, CKD 3-4, OR last GFR 15-59) [employer] Start: 11-01-2025 GFR test (Diabetes, CKD 3-4, OR last GFR 15-59) GFR test (Diabetes, CKD 3-4, OR last GFR 15-59) [employer] Start: 10-20-2025 GFR test (Diabetes, CKD 3-4, OR last GFR 15-59) GFR test (Diabetes, CKD 3-4, OR last GFR 15-59) [employer] Start: 10-09-2025 End: 10-09-2025 Patient encounter procedure 10/09/2025 1:00 PM EDT Office Visit [facility] UROLOGY Part of [facility] [address] [facility] [address] [facility] [place] [address] Arabella Dyer PA-C [address] [facility] [facility] [place] [address] 1Y psa [facility] UROLOGY Part [facility] Comment on above: 1Y psa Start: 10-04-2025 Hemoglobin A1c measurement A1C test (Diabetic or Prediabetic) [facility] Start: 09-20-2025 GFR test (Diabetes, CKD 3-4, OR last GFR 15-59) GFR test (Diabetes, CKD 3-4, OR last GFR 15-59) [facility] Start: 08-23-2025 GFR test (Diabetes, CKD 3-4, OR last GFR 15-59) GFR test (Diabetes, CKD 3-4, OR last GFR 15-59) [facility] Start: 07-22-2025 GFR test (Diabetes, CKD 3-4, OR last GFR 15-59) GFR test (Diabetes, CKD 3-4, OR last GFR 15-59) [facility] Start: 07-13-2025 GFR test (Diabetes, CKD 3-4, OR last GFR 15-59) GFR test (Diabetes, CKD 3-4, OR last GFR 15-59) [facility] Start: 07-12-2025 End: 07-12-2025 Follow-up encounter 07/12/2025 1:00 PM EST Pharmacy Visit [facility] [address] [place] [id number] Heart Failure FU- 6month follow-up [facility] Comment on above: Heart Failure FU- 6month follow-up Start: 06-27-2025 GFR test (Diabetes, CKD 3-4, OR last GFR 15-59) GFR test (Diabetes, CKD 3-4, OR last GFR 15-59) [facility] Start: 05-11-2025 GFR test (Diabetes, CKD 3-4, OR last GFR 15-59) GFR test (Diabetes, CKD 3-4, OR last GFR 15-59) [facility] Start: 05-06-2025 GFR test (Diabetes, CKD 3-4, OR last GFR 15-59) GFR test (Diabetes, CKD 3-4, OR last GFR 15-59) [facility] Start: 04-27-2025 End: 04-27-2025 Patient encounter procedure 04/27/2025 1:40 PM EST Office Visit [facility] CARDIOLOGY [address] [id number] Alma Kan MD [address] [place] [address] [place] [address] 6 month [facility] CARDIOLOGY [facility] Comment on above: 6 month Start: 04-12-2025 End: 04-12-2025 Patient encounter procedure 04/12/2025 2:30 PM EST Office Visit [facility] UROLOGY [address] [id number] Arabella Dyer, PA-C [address] [place] [address] [address] [place] [address] 6M pvr [facility] Comment on above: 6M pvr Start: 04-01-2025 GFR test (Diabetes, CKD 3-4, OR last GFR 15-59) GFR test (Diabetes, CKD 3-4, OR last GFR 15-59) [facility] Start: 03-15-2025 GFR test (Diabetes, CKD 3-4, OR last GFR 15-59) GFR test (Diabetes, CKD 3-4, OR last GFR 15-59) [facility] Start: 03-15-2025 End: 03-15-2025 Patient encounter procedure 03/15/2025 1:30 PM EDT Office Visit [facility] VASCULAR Part [address] [facility] [address] Floyd Vee MD [address] [place] [address] [address] [place] [address] F/U from 09/14/24 [facility] Part of [facility] Comment on above: F/U from 09/14/24 Start: 02-27-2025 GFR test (Diabetes, CKD 3-4, OR last GFR 15-59) GFR test (Diabetes, CKD 3-4, OR last GFR 15-59) [facility] Start: 02-26-2025 GFR test (Diabetes, CKD 3-4, OR last GFR 15-59) GFR test (Diabetes, CKD 3-4, OR last GFR 15-59) [facility] Start: 02-23-2025 Diabetic foot examination Diabetic foot exam [facility] Start: 02-23-2025 Hemoglobin A1c measurement A1C test (Diabetic or Prediabetic) [facility] Start: 02-16-2025 End: 02-16-2025 Patient encounter procedure 02/16/2025 2:45 PM EDT Procedure Visit [facility] [address] [place] [phone] Alice Cochran DPM [address] [place] [address] [facility] Start: 02-08-2025 GFR test (Diabetes, CKD 3-4, OR last GFR 15-59) GFR test (Diabetes, CKD 3-4, OR last GFR 15-59) [facility] Start: 12-27-2024 End: 12-27-2024 Patient encounter procedure 12/27/2024 10:30 AM EDT Appointment [facility] [address] [facility] [address] [place] [address] Quincy Penn DPM [address] [facility] [address] [place] [address] right great toe [facility] Comment on above: right great toe Start: 12-23-2024 Influenza vaccination [facility] Start: 12-20-2024 GFR test (Diabetes, CKD 3-4, OR last GFR 15-59) GFR test (Diabetes, CKD 3-4, OR last GFR 15-59) [facility] Start: 12-06-2024 End: 12-06-2024 Patient encounter procedure 12/06/2024 12:00 PM EDT Appointment [facility] [address] [facility] [address] [place] [address] Quincy Penn, SUNDAY [address] [facility] [address] [facility] [place] [address] right great toe amputation [facility] Comment on above: right great toe amputation Start: 11-22-2024 End: 11-22-2024 Patient encounter procedure 11/22/2024 11:00 AM EDT Appointment [facility] [address] [facility] [address] [place] [address] Quincy Penn, CISCOM [address] [place] [address] [address] [place] [address] right great toe, left 3rd toe [facility] Comment on above: right great toe, left 3rd toe Start: 11-16-2024 End: 11-16-2024 Follow-up encounter [facility] Comment on above: Heart Failure FU- 3 month follow-up Heart Failure FU- 3 month follow-up, APPT CONFIRMED W/ 11/15/24 [place] Start: 11-11-2024 End: 11-11-2024 Amputation toe metatarsophalangeal joint TOE AMPUTATION Acute osteomyelitis of right foot (HCC) 11/11/2024 7:40 AM EDT [facility] Start: 11-10-2024 GFR test (Diabetes, CKD 3-4, OR last GFR 15-59) GFR test (Diabetes, CKD 3-4, OR last GFR 15-59) [facility] Start: 11-10-2024 Hemoglobin A1c measurement A1C test (Diabetic or Prediabetic) [facility] Start: 11-10-2024 Lipid panel Lipids [facility] Start: 11-09-2024 End: 11-09-2024 Patient encounter procedure 11/09/2024 1:30 PM EDT Procedure Visit [facility] [address] [place] [phone] Alice Cochran DPM [address] [place], [place] [phone] Arrived [facility] Comment on above: Arrived Start: 11-02-2024 GFR test (Diabetes, CKD 3-4, OR last GFR 15-59) GFR test (Diabetes, CKD 3-4, OR last GFR 15-59) [facility] Start: 11-01-2024 End: 11-01-2024 Patient encounter procedure 11/01/2024 11:30 AM EDT Appointment [facility] [address] [facility] [address] [place] [address] Quincy Penn DPM [address] [facility] [address] [place] [address] right great toe, 2nd and 3rd toe [facility] Comment on above: right great toe, 2nd and 3rd toe Start: 10-20-2024 End: 10-20-2024 Patient encounter procedure 10/20/2024 2:00 PM EDT Office Visit [facility] Part [address] [address] Lev Duarte, PRESIDENT AND CMO - ENVIRONMENTAL EDUCATOR [address] [facility] [place] [address] 3 month/ [facility] Comment on above: 3 month/ Start: 10-12-2024 End: 10-12-2024 Follow-up encounter 10/12/2024 11:00 AM EDT Pharmacy Visit [facility] [address] [place] [phone] Heart Failure FU- 3 month follow-up [facility] Comment on above: Heart Failure FU- 3 month follow-up Start: 10-06-2024 GFR test (Diabetes, CKD 3-4, OR last GFR 15-59) GFR test (Diabetes, CKD 3-4, OR last GFR 15-59) [facility] Start: 10-05-2024 End: 10-05-2024 Patient encounter procedure [facility] great toe (HCC) Expected: 10/04/2024, Expires: 10/04/2025 [facility] Comment on above: Expected: 10/04/2024, Expires: Start: 10-04-2024 End: 10-04-2024 Patient encounter procedure 10/04/2024 11:00 AM EDT Appointment [facility] [address] [facility] [address] [place] [address] Quincy Penn, SUNDAY [address] [facility] [address] [address] right great toe 4 week f/u [facility] Comment on above: right great toe 4 week f/u Start: 09-24-2024 Hemoglobin A1c measurement A1C test (Diabetic or Prediabetic) [facility] Start: 09-19-2024 End: 09-19-2024 Patient encounter procedure 09/19/2024 2:00 PM EDT Office Visit [facility] Part [facility] [address] [facility] [place] [address] Lev Duarte, PRESIDENT AND CMO - ENVIRONMENTAL EDUCATOR [address] [place] [address] 3 month/ [facility] Comment on above: 3 month/ Start: 09-14-2024 End: 09-14-2024 Patient encounter procedure 09/14/2024 12:45 PM EDT Office Visit [facility] VASCULAR Part [address] [place] [address] Floyd Vee MD [address] [place] [address] [address] [facility] [place] [address] 3mo F/U from 06/15/24 [facility] Part [facility] Comment on above: 3mo F/U from 06/15/24 Start: 09-06-2024 End: 09-06-2025 XR Toes - right 2 Views [facility] Comment on above: Expected: 09/06/2024, Expires: 6 1 Occurrences starti ng 09/06/2024 until 09/06/2024 Start: 09-06-2024 End: 09-06-2024 Patient encounter procedure 09/06/2024 11:30 AM EDT Appointment [facility] [address] [place] [address] [address] [place] [address] Quincy Penn, DPM [address] [facility] [address] [place] [phone] right great toe 3 week f/u [facility] Comment on above: right great toe 3 week f/u Start: 08-26-2024 Depression Screen Depression Screen [facility] Start: 08-23-2024 Annual Wellness Visit (Medicare) Annual Wellness Visit (Medicare) [facility] Start: 08-22-2024 End: 08-22-2024 Patient encounter procedure 08/22/2024 10:45 AM EDT Office Visit [facility] [address] [place] [address] Arabella Dyer, PA-C [address] [place] [address] [address] [place] [address] 2-3 week follow up PVR [facility] Comment on above: 2-3 week follow up PVR Start: 08-16-2024 Annual Wellness Visit (Medicare) Annual Wellness Visit (Medicare) [facility] Start: 08-16-2024 End: 08-16-2024 Patient encounter procedure 08/16/2024 2:00 PM EDT Office Visit [facility] [address] [facility] [place] [address] Alma Kan MD [address] [facility] [place] [address] 3 month follow up [facility] Comment on above: 3 month follow up Start: 08-16-2024 End: 08-16-2025 XR Toes - right 2 Views [facility] Comment on above: Expected: 08/16/2024, Expires: 1 Occurrences starti ng 08/16/2024 until 08/16/2024 Start: 08-08-2024 End: 08-08-2024 Patient encounter procedure 08/08/2024 1:30 PM EDT Procedure Visit [facility] [address] [place] [address] Alice Cochran DPM [address] [place] [address] [facility] Start: 08-04-2024 GFR test (Diabetes, CKD 3-4, OR last GFR 15-59) GFR test (Diabetes, CKD 3-4, OR last GFR 15-59) [facility] Start: 08-02-2024 End: 08-02-2024 Patient encounter procedure 08/02/2024 11:30 AM EDT Appointment [facility] [address] [facility] [address] [place] [address] Quincy Penn DPM [address] [facility] [address] [facility] [place] [address] right great toe [facility] Comment on above: right great toe Start: 07-30-2024 Pneumococcal 0-64 years Vaccine (3 - PPSV23 if available, else PCV20) Pneumococcal 0-64 years Vaccine (3 - PPSV23 if available, else PCV20) [facility] Start: 07-30-2024 Pneumococcal 0-64 years Vaccine (3 - PPSV23 or PCV20) Pneumococcal 0-64 years Vaccine (3 - PPSV23 or PCV20) [facility] Start: 07-30-2024 Pneumococcal 0-64 years Vaccine (3 of 3 - PPSV23 or PCV20) Pneumococcal 0-64 years Vaccine (3 of 3 - PPSV23 or PCV20) [facility] Start: 07-28-2024 Pneumococcal 50+ years Vaccine (3 of 3 - PCV20 or PCV21) Pneumococcal 50+ years Vaccine (3 of 3 - PCV20 or PCV21) [facility] Start: 07-13-2024 End: 07-13-2024 Follow-up encounter [facility] Comment on above: Heart Failure FU- 3 month follow-up Heart Failure FU- 3 month follow-up- LEFT VM REMINDING OF APPT 07/12/24 CO Start: 07-12-2024 End: 07-12-2024 Patient encounter procedure 07/12/2024 10:30 AM EST Appointment [facility] [address] [place] [address] [address] [place] [address] Quincy Penn DPM [address] [place] [address] [address] [place] [address] bilateral lower legs [facility] Comment on above: bilateral lower legs Start: 06-30-2024 GFR test (Diabetes, CKD 3-4, OR last GFR 15-59) GFR test (Diabetes, CKD 3-4, OR last GFR 15-59) [facility] Start: 06-15-2024 End: 06-15-2024 Patient encounter procedure 06/15/2024 1:00 PM EST Office Visit [facility] V[facility] Part of [address] [place] [address] Floyd Vee MD [address] [place] [address] [address] [place] [address] Critical Limb Ischemia BLE; 3 mth follow up with vascular duplex [facility] Comment on above: Critical Limb Ischemia BLE; 3 mth follow up with vascular duplex Start: 05-26-2024 End: 05-26-2024 Patient encounter [facility] Comment on above: Arrived Start: 05-06-2024 End: 05-06-2024 Patient encounter procedure 05/06/2024 11:20 AM EST Office Visit [facility] [address] [place] [address] Alma Kan MD [address] [facility] [place] [address] 6 week [facility] Comment on above: 6 week Start: 04-25-2024 End: 04-25-2024 Patient encounter procedure 04/25/2024 1:00 PM EST Appointment [facility] [address] [place] [address] [phone] Floyd Vee MD [address] [facility] [address] [place] [address] EPIC* SCHED W PT SPOUSE [facility] Comment on above: EPIC* SCHED W PT SPOUSE Start: 04-19-2024 End: 04-19-2024 Patient encounter procedure 04/19/2024 2:15 PM EST Procedure Visit [facility] [address] [place] [phone] Alice Cochran, DPBettina [address] [place] [address] [facility] Start: 04-13-2024 End: 04-13-2024 ambulatory 04/13/2024 11:00 AM EST Pharmacy Visit [facility] [address] [place] [phone] Heart Failure FU [facility] Comment on above: Heart Failure FU Start: 04-05-2024 End: 04-05-2024 ambulatory 04/05/2024 11:00 AM EST Pharmacy Visit [facility] [address] [place] [phone] Heart Failure FU [facility] Comment on above: Heart Failure FU Start: 03-23-2024 End: 03-23-2024 Patient encounter procedure 03/23/2024 1:45 PM EDT Office Visit [facility] [address] [place] [phone] Alice Cochran, DPM [address] [place] [address] [facility] Start: 03-16-2024 End: 03-16-2024 Patient encounter procedure 03/16/2024 11:45 AM EDT Office Visit [facility] V[facility] Part [address] [place] [address] Floyd Vee MD [address] [place] [address] [address] [place] [address] 4 weeks f/u IR [facility] V[facility] Part [facility] Comment on above: 4 weeks f/u IR Start: 03-15-2024 End: 03-15-2024 Patient encounter procedure 03/15/2024 11:20 AM EDT Office Visit [facility] [address] [address] Alma Kan MD [address] [place] [address] [place] [address] 3 month [facility] Part [facility] Comment on above: 3 month Start: 03-08-2024 End: 03-08-2024 Admission to same day surgery center 03/08/2024 8:30 AM EDT - 03/08/2024 9:30 AM EDT Surgery [facility] [address] [place], [place] [phone] Floyd Vee MD [address] [place] [address] [address] [place] [address] Angiography lower ext bilat [facility] Comment on above: Angiography lower ext bilat Start: 03-08-2024 Subsequent hospital visit by physician 03/08/2024 8:30 AM EDT Hospital Encounter [facility] [address] [place] [address] Floyd Vee MD [address] [facility] [address] [place] [address] Critical limb ischemia of both lower extremities (HCC) [facility] Comment on above: Critical limb ischemia of both lower ext remities (HCC) Start: 02-24-2024 End: 02-24-2024 ambulatory 02/24/2024 11:00 AM EDT [facility] [address] [place] [address] Heart Failure FU started metolazone 3x wk [facility] Comment on above: Heart Failure FU started metolazone 3x w k Start: 02-24-2024 End: 02-24-2024 Patient encounter procedure 02/24/2024 10:00 AM EDT Appointment [facility] [address] [place] [address] MEDIA - JARAD W/ PT [facility] Comment on above: MEDIA - JARAD W/ PT Start: 02-17-2024 End: 02-17-2024 Admission to same day surgery center 02/17/2024 3:00 PM EDT - 02/17/2024 4:00 PM EDT Surgery [facility] Cardiac Cath/EP Lab [facility] [place] [address] [place] [address] [facility] [address] [place] [address] simon / Percutaneous coronary intervention *arrive @ 0930 hydration* [facility] Cardiac Cath/EP Lab Comment on above: simon / Percutaneous coronary interventi on *arrive @ 0930 hydration* Start: 02-17-2024 Subsequent hospital visit by physician 02/17/2024 3:00 PM EDT Hospital Encounter [facility] Cardiac Cath/EP Lab [address] [place] [address] [place] [address] [facility] [address] [place], [place] [phone] CAD (coronary artery disease) [facility] Cardiac Cath/EP Lab Comment on above: CAD (coronary artery disease) Start: 02-17-2024 End: 02-17-2024 Patient encounter procedure 02/17/2024 9:45 AM EDT Office Visit [facility] [address] [place] [phone] Alice Cochran DPM [address] [place] [place], [place] [phone] Arrived [facility] Comment on above: Arrived Start: 02-15-2024 End: 02-15-2024 Patient encounter procedure 02/15/2024 10:45 AM EDT Office Visit [address] [place] [address] Floyd Vee MD [address] [facility] [address] [place] [address] PVD (peripheral vascular disease) with claudication ([facility]) [facility] Comment on above: PVD (peripheral vascular disease) with c laudication ([facility]) Start: 02-15-2024 End: 02-15-2024 Patient encounter procedure 02/15/2024 9:30 AM EDT Office Visit [facility] [address] [place] [phone] Alice Cochran DPM [address] [place], [place] [phone] [facility] Start: 02-09-2024 End: 02-09-2024 Patient encounter procedure 02/09/2024 1:00 PM EDT Appointment [facility] [address] [place] [phone] 2 month FU [facility] Comment on above: 2 month FU Start: 02-03-2024 End: 02-03-2024 Patient encounter procedure 02/03/2024 10:40 AM EDT Office Visit [facility] C[facility] Part [address] [place] [phone] Alma Kan MD [address] [place] [address] [place] [address] 3 month [facility] C[facility] Comment on above: 3 month Start: 01-24-2024 COVID-19 Vaccine ( season) COVID-19 Vaccine ( season) [facility] Start: 01-24-2024 COVID-19 Vaccine ( season) COVID-19 Vaccine ( season) [facility] Start: 12-24-2023 Influenza vaccination [facility] Start: 12-23-2023 End: 12-23-2023 Patient encounter procedure 12/23/2023 9:30 AM EDT Initial consult [facility] Cardiothoracic Surgical Ass [address] [facility] [address] [place] [phone] Adrian Delgadillo MD [address] [facility] [address] [place] [address] Correa for [facility] Cardiothoracic Surgical [facility] Comment on above: From Dr. Correa for MVD Start: 12-21-2023 End: 12-21-2023 Admission to same day surgery center 12/21/2023 12:00 PM EDT - 12/21/2023 1:00 PM EDT Surgery [facility] Cardiac Cath/IR Lab [address] [facility] [place] [address] [place] [address] [facility] [address] [place] [address] Left heart cath / coronary angiography [facility] Cardiac Cath/IR Lab Comment on above: Left heart cath / coronary angiography Start: 12-21-2023 Subsequent hospital visit by physician 12/21/2023 12:00 PM EDT Hospital Encounter [facility] Cardiac Cath/IR Lab [address] [facility] [place] [address] [place] [address] [facility] [address] [place] [address] Abnormal stress test; Chest pain; CAD (coronary artery disease) [facility] Cardiac Cath/IR Lab Comment on above: Abnormal stress test; Chest pain; CAD (coronary artery disease) Start: 12-09-2023 End: 12-09-2023 Patient encounter procedure [facility] Comment on above: CHF-NEW, coming after PT Start: 12-07-2023 End: 12-07-2023 Patient encounter procedure 12/07/2023 2:45 PM EDT Appointment [facility] [address] [place] [address] [phone] Yumiko Montes PTA [facility] Start: 12-06-2023 GFR test (Diabetes, CKD 3-4, OR last GFR 15-59) GFR test (Diabetes, CKD 3-4, OR last GFR 15-59) [facility] Start: 12-06-2023 Hemoglobin A1c measurement A1C test (Diabetic or Prediabetic) [facility] Start: 12-06-2023 Urine screening for protein Diabetic Alb to Cr ratio (uACR) test [facility] Start: 11-24-2023 End: 11-24-2023 Patient encounter procedure 11/24/2023 3:00 PM EDT Office Visit [facility] C[facility] [address] [place] [address] Alma Kan MD [address] [place] [address] [place] [phone] ED follow up/1-2 weeks per Lucius [facility] Comment on above: ED follow up/1-2 weeks per Lucius Start: 11-20-2023 End: 11-20-2023 Patient encounter procedure 11/20/2023 1:00 PM EDT Appointment [facility] [address] [place] [phone] Rashel Cárdenas, PT [facility] Comment on above: [facility] Start: 11-17-2023 End: 11-17-2023 Patient encounter procedure 11/17/2023 10:45 AM EDT Appointment [facility] [address] [place] [phone] Yumiko Montes FINANCIAL SERVICES TECHNICIAN [facility] Start: 11-11-2023 End: 11-11-2023 Patient encounter procedure 11/11/2023 2:45 PM EDT Appointment [facility] [address] [place] [phone] Yumiko Montes, FINANCIAL SERVICES TECHNICIAN [facility] Start: 11-11-2023 End: 11-11-2023 Patient encounter procedure 11/11/2023 10:30 AM EDT Appointment [facility] [address] [place] [phone] Yumiko Montes FINANCIAL SERVICES TECHNICIAN [facility] Start: 11-09-2023 End: 11-09-2023 Patient encounter procedure 11/09/2023 2:45 PM EDT Appointment [facility] [address] [place] [phone] Yumiko Montes FINANCIAL SERVICES TECHNICIAN [facility] Start: 11-06-2023 End: 11-06-2023 Patient encounter procedure 11/06/2023 12:15 PM EDT Appointment [facility] [address] [place] [phone] Huang Urbina, PT 30 day followup [facility] Comment on above: 30 day followup Start: 11-06-2023 Subsequent hospital visit by physician 11/06/2023 12:15 PM EDT Hospital Encounter [facility] [address] [place] [phone] Yumiko Montes PTA [facility] Start: 11-03-2023 End: 11-03-2023 Patient encounter procedure 11/03/2023 10:45 AM EDT Appointment [facility] [address] [place] [phone] Yumiko Montes PTA [facility] Start: 11-03-2023 End: 11-03-2023 Laser vaporization of prostate for urine flow CYSTOSCOPY TRANSURETHRAL RESECTION 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 11/03/2023 8:30 AM EDT [facility] Start: 10-29-2023 End: 10-29-2023 Patient encounter procedure 10/29/2023 9:15 AM EDT Appointment [facility] [address] [place] [phone] Yumiko Montes PTA [facility] Start: 10-27-2023 End: 10-27-2023 Patient encounter procedure 10/27/2023 10:30 AM EDT Appointment [facility] [address] [place] [phone] Yumiko Montes PTA [facility] Start: 10-26-2023 End: 10-26-2023 Patient encounter procedure 10/26/2023 11:15 AM EDT Procedure visit [facility] UROLOGY [address] [place] [address] Akira Ferrer MD [address] [place] [address], [address] [place] [address] cysto [facility] Comment on above: cysto Start: 10-16-2023 GFR test (Diabetes, CKD 3-4, OR last GFR 15-59) GFR test (Diabetes, CKD 3-4, OR last GFR 15-59) [facility] Start: 10-16-2023 Lipid panel Lipids [facility] Start: 10-01-2023 End: 10-01-2023 Patient encounter procedure 10/01/2023 11:00 AM EDT Office Visit [facility] UROLOGY [address] [place] [address] Nancy Roe, PRESIDENT AND CMO - ENVIRONMENTAL EDUCATOR [address] [place] [address] [address] [place] [address] 8wk F/U Labs prior PVR [facility] UROLOGY [facility] Comment on above: 8wk F/U Labs prior PVR Start: 09-17-2023 End: 09-17-2023 Patient encounter procedure 09/17/2023 1:40 PM EDT Office Visit [facility] CARDIOLOGY [address] [place] [address] Alma Kan MD [address] [place] [address] [place] [phone] 6 month [facility] CARDIOLOGY [facility] Comment on above: 6 month Start: 08-05-2023 End: 08-05-2023 Patient encounter procedure 08/05/2023 11:30 AM EDT Office Visit [address] [place] [address] Arabella Dyer, PA-C [address] [place] [address] [address] [place] [address] 3 month f/u, PVR [facility] Comment on above: 3 month f/u, PVR Start: 05-13-2023 GFR test (Diabetes, CKD 3-4, OR last GFR 15-59) GFR test (Diabetes, CKD 3-4, OR last GFR 15-59) [facility] Start: 03-04-2023 End: 03-04-2023 Patient encounter procedure 03/04/2023 Office Visit Cardiology Alma Kan MD [address] [place] [address] [place] [address] [facility] CARDIOLOGY [facility] Start: 02-05-2023 End: 02-05-2023 Patient encounter procedure 02/05/2023 Office Visit Urology [facility] UROLOGY [facility] Start: 01-28-2023 End: 01-28-2023 Patient encounter procedure 01/28/2023 Appointment Radiology [facility] Start: 01-27-2023 End: 01-27-2023 Patient encounter procedure 01/27/2023 Appointment Radiology [facility] Start: 01-01-2023 End: 01-01-2023 Patient encounter procedure 01/01/2023 Office Visit Cardiology Alma Kan MD [address] [place] [address] [facility] CARDIOLOGY [facility] Start: 12-23-2022 Influenza vaccination [facility] Start: 12-22-2022 End: 12-22-2022 Patient encounter procedure 12/22/[facility] Start: 12-18-2022 End: 12-18-2022 Patient encounter procedure 12/18/2022 Appointment Physical Therapy Rashel Cárdenas PT [facility] Start: 12-17-2022 End: 12-17-2022 Patient encounter procedure 12/17/2022 Appointment Physical Therapy Shirin Bjawa PTA [facility] Start: 12-15-2022 End: 12-15-2022 Patient encounter procedure 12/15/2022 Appointment Radiology [facility] CT Scan Start: 12-11-2022 End: 12-11-2022 Patient encounter procedure 12/11/2022 Appointment Physical Therapy Rashel Cárdenas PT [facility] Start: 12-08-2022 End: 12-08-2022 Patient encounter procedure 12/08/2022 Appointment Physical Therapy Shirin Bajwa PTA [facility] Start: 12-03-2022 End: 12-03-2022 Patient encounter procedure 12/03/2022 Appointment Physical Therapy Shirin Bajwa FINANCIAL SERVICES TECHNICIAN [facility] Start: 12-02-2022 End: 12-02-2022 Patient encounter procedure [facility] Start: 11-20-2022 End: 11-20-2022 Patient encounter procedure 11/20/2022 Appointment Physical Therapy Rashel Cárdenas, PT [facility] Start: 11-18-2022 End: 11-18-2022 Patient encounter procedure 11/18/2022 Appointment Physical Therapy Abby Quintero, PT [facility] Start: 11-14-2022 End: 11-14-2022 Patient encounter procedure 11/14/2022 Appointment Physical Therapy Sharonda Gonzalez, FINANCIAL SERVICES TECHNICIAN [facility] Start: 11-07-2022 End: 11-07-2022 [facility] Start: 11-06-2022 [facility] Start: 11-05-2022 End: 11-05-2022 Patient encounter procedure 11/05/2022 Office Visit Urology [facility] Start: 11-03-2022 End: 11-03-2022 Patient encounter procedure 11/03/2022 Appointment Physical Therapy Shirin Bajwa FINANCIAL SERVICES TECHNICIAN [facility] Start: 10-31-2022 End: 10-31-2022 Patient encounter procedure 10/31/2022 Appointment Physical Therapy Shirin Bajwa, FINANCIAL SERVICES TECHNICIAN [facility] Start: 10-27-2022 End: 10-27-2022 Patient encounter procedure 10/27/2022 Appointment Physical Therapy Shirin Bajwa FINANCIAL SERVICES TECHNICIAN [facility] Start: 10-24-2022 End: 10-24-2022 Patient encounter procedure 10/24/2022 Appointment Physical Therapy Chris Sauceda, PT [facility] Start: 10-22-2022 End: 10-22-2022 Patient encounter procedure 10/22/2022 Appointment Physical Therapy Shirin Bajwa FINANCIAL SERVICES TECHNICIAN [facility] Start: 10-17-2022 End: 10-17-2022 Patient encounter procedure 10/17/2022 Appointment Physical Therapy Shirin Bajwa FINANCIAL SERVICES TECHNICIAN [facility] Start: 10-16-2022 End: 10-16-2022 Patient encounter procedure 10/16/2022 Office Visit Cardiology Alma Kan MD [address] [place] [address] [facility] Start: 10-15-2022 End: 10-15-2022 Patient encounter procedure 10/15/2022 Office Visit Cardiology Alma Kan MD [address] [place] [address] [facility] Start: 10-13-2022 End: 10-13-2022 Patient encounter procedure 10/13/2022 Appointment Physical Therapy Shirin Bajwa FINANCIAL SERVICES TECHNICIAN [facility] Start: 10-09-2022 End: 10-09-2022 Patient encounter procedure 10/09/2022 Appointment Physical Therapy Chris Sauceda, PT [facility] Start: 10-03-2022 End: 10-03-2022 Patient encounter procedure 10/03/2022 Appointment Physical Therapy Shirin Bajwa FINANCIAL SERVICES TECHNICIAN [facility] Start: 09-29-2022 End: 09-29-2022 Patient encounter procedure 09/29/2022 Appointment Physical Therapy Shirin Bajwa FINANCIAL SERVICES TECHNICIAN [facility] Start: 09-26-2022 End: 09-26-2022 Patient encounter procedure 09/26/2022 Appointment Physical Therapy Shirin Bajwa FINANCIAL SERVICES TECHNICIAN [facility] Start: 09-22-2022 End: 09-22-2022 Patient encounter procedure 09/22/2022 Appointment Physical Therapy Shirin Bajwa FINANCIAL SERVICES TECHNICIAN [facility] Start: 09-19-2022 End: 09-19-2022 Patient encounter procedure 09/19/2022 Appointment Physical Therapy Rashel Cárdenas PT [facility] Start: 09-15-2022 End: 09-15-2022 Patient encounter procedure 09/15/2022 Appointment Physical Therapy Shirin Bajwa FINANCIAL SERVICES TECHNICIAN [facility] Start: 09-12-2022 End: 09-12-2022 Patient encounter procedure 09/12/2022 Appointment Physical Therapy Shirin Bajwa FINANCIAL SERVICES TECHNICIAN [facility] Start: 09-09-2022 End: 09-09-2022 Patient encounter procedure 09/09/2022 Appointment Physical Therapy Chris Sauceda, PT [facility] Start: 09-09-2022 Creatinine measurement Creatinine [facility] Start: 09-09-2022 Potassium [Moles/volume] in Serum or Plasma Potassium [facility] Start: 09-08-2022 End: 09-08-2022 Patient encounter procedure 09/08/2022 Appointment Physical Therapy Shirin Bajwa PTA [facility] Start: 09-05-2022 End: 09-05-2022 Patient encounter procedure 09/05/2022 Appointment Physical Therapy Chris Sauceda, PT [facility] Start: 09-02-2022 End: 09-02-2022 Patient encounter procedure 09/02/2022 Office Visit Urology [facility] UROLOGY [facility] Start: 09-01-2022 End: 09-01-2022 Patient encounter procedure 09/01/2022 Appointment Physical Therapy Shirin Bajwa PTA [facility] Start: 08-29-2022 End: 08-29-2022 Patient encounter procedure 08/29/2022 Appointment Physical Therapy Shirin Bajwa, FINANCIAL SERVICES TECHNICIAN [facility] Start: 08-25-2022 End: 08-25-2022 Patient encounter procedure 08/25/2022 Appointment Physical Therapy Chris Sauceda, PT [facility] Start: 07-17-2022 End: 07-17-2022 Patient encounter procedure [facility] CARDIOLOGY [facility] Start: 07-15-2022 End: 07-15-2022 Admission to same day surgery center 07/15/2022 Surgery IP Unit Akira Ferrer MD [address] [place] [address], [address] [place] [address] CYSTOSCOPY TRANSURETHRAL RESECTION PROSTATE LASER-PVP GREENLIGHT [facility] Comment on above: CYSTOSCOPY TRANSURETHRAL RESECTION PROST ATE LASER-PVP GREENLIGHT Start: 07-15-2022 End: 07-15-2022 Laser vaporization of prostate for urine flow [facility] Start: 07-15-2022 Subsequent hospital visit by physician 07/15/2022 Hospital Encounter IP Unit Akira Ferrer MD [address] [facility], [address] [place], [place] [phone] [facility] Start: 07-15-2022 End: 07-15-2022 Admission to same day surgery center 07/15/2022 Surgery IP Unit Akira Ferrer MD [address] [facility], [address] [place], [place] [id number] CYSTOSCOPY TRANSURETHRAL RESECTION PROSTATE LASER-PVP GREENLIGHT [facility] Comment on above: CYSTOSCOPY TRANSURETHRAL RESECTION PROST ATE LASER-PVP GREENLIGHT Start: 07-15-2022 End: 07-15-2022 Laser vaporization of prostate for urine flow CYSTOSCOPY TRANSURETHRAL RESECTION PROSTATE LASER Enlarged prostate with urinary obstruction 07/15/2022 11:05 AM EST [facility] Start: 07-15-2022 Subsequent hospital visit by physician 07/15/2022 Hospital Encounter IP Unit Akira Ferrer MD [address] [facility], [address] [place], [place] [phone] [facility] Start: 07-14-2022 End: 07-14-2022 Patient encounter procedure 07/14/2022 Appointment Stress Lab [facility] Stress [facility] Start: 07-04-2022 End: 07-04-2022 Patient encounter procedure 07/04/2022 Office Visit Cardiology Alma Kan MD [address] [place] [address] [place] [address] [facility] CARDIOLOGY [facility] Start: 06-06-2022 Hemoglobin A1c measurement A1C test (Diabetic or Prediabetic) [facility] Start: 06-01-2022 Creatinine measurement Creatinine monitoring [facility] Start: 06-01-2022 Potassium monitoring Potassium monitoring [facility] Start: 05-30-2022 End: 05-30-2022 Patient encounter procedure 05/30/2022 Procedure visit Urology [facility] UROLOGY [facility] Start: 05-29-2022 Lipid panel [facility] Start: 05-27-2022 Hemoglobin A1c measurement A1C test (Diabetic or Prediabetic) [facility] Start: 05-23-2022 End: 05-23-2022 Patient encounter [...] procedure 05/13/2022 Office Visit Urology [facility] UROLOGY [facility] Start: 05-12-2022 End: 05-12-2022 Patient encounter procedure 05/12/2022 Appointment Physical Therapy Huang Urbina, PT [facility] Start: 05-06-2022 End: 05-06-2022 Patient encounter procedure 05/06/2022 Appointment Physical Therapy Huang Urbina, PT [facility] Start: 04-11-2022 End: 04-11-2022 Patient encounter procedure 04/11/2022 Appointment Physical Therapy Doc Agrawal, FINANCIAL SERVICES TECHNICIAN [facility] Start: 04-09-2022 End: 04-09-2022 Patient encounter procedure 04/09/2022 Appointment Physical Therapy Chris Sauceda, PT [facility] Start: 04-04-2022 End: 04-04-2022 Patient encounter procedure 04/04/2022 Office Visit Cardiology Alma Kan MD [address] [place] [address] [place] [id number] [facility] CARDIOLOGY [facility] Start: 04-02-2022 End: 04-02-2022 Patient encounter procedure 04/02/2022 Appointment Physical Therapy Doc Agrawal, FINANCIAL SERVICES TECHNICIAN [facility] Start: 03-31-2022 End: 03-31-2022 Patient encounter procedure 03/31/2022 Appointment Physical Therapy Chris Sauceda, PT [facility] Start: 03-26-2022 End: 03-26-2022 Patient encounter procedure 03/26/2022 Appointment Physical Therapy Rashel Cárdenas, PT [facility] Start: 03-24-2022 End: 03-24-2022 Patient encounter procedure 03/24/2022 Appointment Physical Therapy Huang Urbina PT [facility] Start: 03-20-2022 End: 03-20-2022 Patient encounter procedure [facility] Start: 03-18-2022 End: 03-18-2022 Patient encounter procedure 03/18/2022 Appointment Physical Therapy Chris Sauceda, PT [facility] Start: 03-18-2022 End: 03-18-2022 Patient encounter procedure [facility] UROLOGY [facility] Start: 03-14-2022 End: 03-14-2022 Patient encounter procedure 03/14/2022 Appointment Physical Therapy Yumiko Montes, FINANCIAL SERVICES TECHNICIAN [facility] Start: 03-06-2022 End: 03-06-2022 Patient encounter procedure 03/06/2022 Appointment Physical Therapy Rashel Cárdenas, PT [facility] Start: 03-03-2022 End: 03-03-2022 Patient encounter procedure 03/03/2022 Appointment Physical Therapy Yumiko Montes, FINANCIAL SERVICES TECHNICIAN [facility] Start: 02-20-2022 End: 02-20-2022 Patient encounter procedure 02/20/2022 Appointment Physical Therapy Rashel Cárdenas, PT [facility] Start: 02-18-2022 End: 02-18-2022 Patient encounter procedure [facility] CARDIOLOGY [facility] Start: 02-14-2022 End: 02-14-2022 Patient encounter procedure 02/14/2022 Appointment Physical Therapy Huagn Urbina, PT [facility] Start: 02-07-2022 End: 02-07-2022 Patient encounter procedure 02/07/2022 Appointment Physical Therapy Yumiko Montes, FINANCIAL SERVICES TECHNICIAN [facility] Start: 02-06-2022 End: 02-06-2022 Patient encounter procedure 02/06/2022 Appointment Physical Therapy Rashel Cárdenas, PT [facility] Start: 01-31-2022 End: 01-31-2022 Patient encounter procedure [facility] Start: 01-30-2022 End: 01-30-2022 Patient encounter procedure [facility] Start: 01-28-2022 End: 01-28-2022 Patient encounter procedure 01/28/2022 Appointment Physical Therapy Rashel Cárdenas, PT [facility] Physical Therapy Start: 01-27-2022 End: 01-27-2022 Patient encounter procedure 01/27/2022 Appointment Cardiac Rehabilitation [facility] Cardiac Rehab Start: 01-24-2022 End: 01-24-2022 Patient encounter procedure 01/24/2022 Appointment Physical Therapy Rashel Cárdenas, PT [facility] Physical Therapy Start: 01-23-2022 Influenza vaccination [facility] Start: 01-23-2022 End: 01-23-2022 Patient encounter procedure [facility] Start: 01-21-2022 End: 01-21-2022 Patient encounter procedure 01/21/2022 Appointment Physical Therapy Doc Agrawal PTA [facility] Physical Therapy Start: 01-20-2022 End: 01-20-2022 Patient encounter procedure 01/20/2022 Appointment Cardiac Rehabilitation [facility] Start: 01-16-2022 End: 01-16-2022 Patient encounter procedure [facility] Start: 01-14-2022 End: 01-14-2022 Patient encounter procedure 01/14/2022 Appointment Physical Therapy Colton Lim [facility] Physical Therapy Start: 01-13-2022 End: 01-13-2022 Patient encounter procedure 01/13/2022 Appointment Cardiac Rehabilitation [facility] Start: 01-10-2022 End: 01-10-2022 Patient encounter procedure 01/10/2022 Appointment Physical Therapy Doc Agrawal PTA [facility] Physical Therapy Start: 01-09-2022 End: 01-09-2022 Patient encounter procedure 01/09/2022 Appointment Cardiac Rehabilitation [facility] Start: 01-08-2022 End: 01-08-2022 Patient encounter procedure 01/08/2022 Appointment Physical Therapy Doc Agrawal PTA [facility] Physical Therapy Start: 01-06-2022 End: 01-06-2022 Patient encounter procedure [facility] Start: 01-03-2022 End: 01-03-2022 Patient encounter procedure 01/03/2022 Appointment Physical Therapy Doc Agrawal PTA [facility] Physical Therapy Start: 01-02-2022 End: 01-02-2022 Patient encounter procedure [facility] CARDIOLOGY [facility] Start: 01-01-2022 End: 01-01-2022 Patient encounter procedure 01/01/2022 Appointment Physical Therapy Doc Agrawal PTA [facility] Physical Therapy Start: 12-30-2021 End: 12-30-2021 Patient encounter procedure [facility] Start: 12-27-2021 End: 12-27-2021 Patient encounter procedure 12/27/2021 Appointment Physical Therapy Rashel Cárdenas, PT [facility] Physical Therapy Start: 12-26-2021 End: 12-26-2021 Patient encounter procedure [facility] Start: 12-24-2021 End: 12-24-2021 Patient encounter procedure 12/24/2021 Appointment Physical Therapy Colton Lim [facility] Physical Therapy Start: 12-23-2021 Influenza vaccination Flu vaccine (#1) [facility] Start: 12-23-2021 End: 12-23-2021 Patient encounter procedure 12/23/2021 Appointment Cardiac Rehabilitation [facility] Start: 12-20-2021 End: 12-20-2021 Patient encounter procedure 12/20/2021 Appointment Physical Therapy Rashel Cárdenas, PT [facility] Physical Therapy Start: 12-19-2021 End: 12-19-2021 Patient encounter procedure 12/19/2021 Appointment Cardiac Rehabilitation [facility] Re[facility] Start: 12-18-2021 Subsequent hospital visit by physician 12/18/2021 Hospital Encounter Physical Therapy Doc Agrawal PTA [facility] Physical Therapy Start: 12-18-2021 End: 12-18-2021 Patient encounter procedure 12/18/2021 Appointment Cardiac Rehabilitation [facility] Start: 12-16-2021 End: 12-16-2021 Patient encounter procedure 12/16/2021 Appointment Cardiac Rehabilitation [facility] Start: 12-12-2021 End: 12-12-2021 Patient encounter procedure 12/12/2021 Appointment Cardiac Rehabilitation [facility] Start: 12-11-2021 End: 12-11-2021 Patient encounter procedure 12/11/2021 Appointment Cardiac Rehabilitation [facility] Start: 12-09-2021 End: 12-09-2021 Patient encounter procedure 12/09/2021 Appointment Cardiac Rehabilitation [facility] Start: 12-05-2021 End: 12-05-2021 Patient encounter procedure 12/05/2021 Appointment Cardiac Rehabilitation [facility] Start: 12-04-2021 End: 12-04-2021 Patient encounter procedure 12/04/2021 Appointment Cardiac Rehabilitation [facility] Start: 12-02-2021 End: 12-02-2021 Patient encounter procedure 12/02/2021 Appointment Cardiac Rehabilitation [facility] Start: 11-28-2021 End: 11-28-2021 Patient encounter procedure 11/28/2021 Appointment Cardiac Rehabilitation [facility] Start: 11-25-2021 End: 11-25-2021 Patient encounter procedure 11/25/2021 Appointment Cardiac Rehabilitation [facility] Start: 11-21-2021 End: 11-21-2021 Patient encounter procedure 11/21/2021 Appointment Cardiac Rehabilitation [facility] Start: 11-18-2021 End: 11-18-2021 Patient encounter procedure 11/18/2021 Appointment Cardiac Rehabilitation [facility] Start: 11-14-2021 End: 11-14-2021 Patient encounter procedure 11/14/2021 Appointment Cardiac Rehabilitation [facility] Start: 11-11-2021 End: 11-11-2021 Patient encounter procedure 11/11/2021 Appointment Cardiac Rehabilitation [facility] Start: 11-07-2021 End: 11-07-2021 Patient encounter procedure 11/07/2021 Appointment Cardiac Rehabilitation [facility] Start: 11-04-2021 End: 11-04-2021 Patient encounter procedure 11/04/2021 Appointment Cardiac Rehabilitation [facility] Start: 10-31-2021 End: 10-31-2021 Patient encounter procedure 10/31/2021 Appointment Cardiac Rehabilitation [facility] Start: 10-28-2021 End: 10-28-2021 Patient encounter procedure 10/28/2021 Appointment Cardiac Rehabilitation [facility] Start: 10-24-2021 End: 10-24-2021 Patient encounter procedure 10/24/2021 Appointment Cardiac Rehabilitation [facility] Start: 10-21-2021 End: 10-21-2021 Patient encounter procedure 10/21/2021 Appointment Cardiac Rehabilitation [facility] Start: 10-17-2021 End: 10-17-2021 Patient encounter procedure 10/17/2021 Appointment Cardiac Rehabilitation [facility] Start: 10-14-2021 End: 10-14-2021 Patient encounter procedure 10/14/2021 Appointment Cardiac Rehabilitation [facility] Start: 10-10-2021 End: 10-10-2021 Patient encounter procedure 10/10/2021 Appointment Cardiac Rehabilitation [facility] Start: 10-09-2021 End: 10-09-2021 Patient encounter procedure 10/09/2021 Appointment Cardiac Rehabilitation [facility] Start: 10-07-2021 End: 10-07-2021 Patient encounter procedure 10/07/2021 Appointment Cardiac Rehabilitation [facility] Start: 10-03-2021 End: 10-03-2021 Patient encounter procedure 10/03/2021 Appointment Cardiac Rehabilitation [facility] Start: 09-30-2021 End: 09-30-2021 Patient encounter procedure 09/30/2021 Appointment Cardiac Rehabilitation [facility] Start: 09-27-2021 End: 09-27-2021 Patient encounter procedure 09/27/2021 Office Visit Cardiology Alma Kan MD [address] [facility] [place] [address] [facility] CARDIOLOGY [facility] Start: 09-16-2021 End: 09-16-2021 Patient encounter procedure 09/16/2021 Office Visit Urology Akira Ferrer MD [address] [facility], [address] [place] [address] [facility] UROLOGY [facility] Start: 08-15-2021 Prostate specific antigen measurement Prostate Specific Antigen (PSA) Screening or Monitoring [facility]NG[facility] Start: 06-03-2021 End: 06-03-2021 Patient encounter procedure 06/03/2021 Appointment IP Unit [facility] Start: 05-01-2021 End: 05-01-2021 Patient encounter procedure 05/01/2021 Appointment Stress Lab [facility] Start: 04-30-2021 End: 04-30-2021 Patient encounter procedure [facility] Start: 01-23-2021 Influenza vaccination Flu vaccine (#1) [employer] Start: 08-22-2020 End: 08-22-2020 Office Visit 08/22/2020 Office Visit Urology Akira Ferrer MD [address] [facility], [address] [place], [place] [id number] [facility] [place] [facility] Start: 07-26-2020 End: 07-26-2020 Office Visit 07/26/2020 Office Visit Endocrinology Octavio Lozada MD [address] [place] [address] [facility] Start: 01-24-2020 Influenza vaccination Flu vaccine (#1) [employer] Phone: Start: 2019 Respiratory Syncytial Virus (RSV) or age 60 yrs+ (1 - 1-dose 60+ series) Respiratory Syncytial Virus (RSV) or age 60 yrs+ (1 - 1-dose 60+ series) [facility] [employer] Start: 2019 Respiratory Syncytial Virus (RSV) or age 60 yrs+ (1 - Risk 60-74 years 1-dose series) Respiratory Syncytial Virus (RSV) or age 60 yrs+ (1 - Risk 60-74 years 1-dose series) [facility] [employer] Start: 07-30-2009 Screening for malignant neoplasm of colon Colon cancer screen colonoscopy [employer] Phone: Start: 07-30-2009 Shingles Vaccine (1 of 2) Shingles Vaccine (1 of 2) [employer] Start: 07-30-2004 Screening for malignant neoplasm of colon [employer] Start: 1999 Diabetes screen Diabetes screen [employer] Phone: Start: 07-30-1978 DTaP/Tdap/Td vaccine (1 - Tdap) DTaP/Tdap/Td vaccine (1 - Tdap) [employer] Start: 07-30-1977 Diabetic microalbuminuria test Diabetic microalbuminuria test [employer] Start: 07-30-1977 Diabetic retinal exam Diabetic retinal exam [facility] Start: 07-30-1977 Glaucoma screening Diabetic retinal exam [facility] Start: 07-30-1977 Hepatitis C screening Hepatitis C screen [facility] Start: 07-30-1977 Urine screening for protein [facility] Start: 07-30-1974 HIV screening HIV screen [facility] Start: 1971 COVID-19 Vaccine (1) COVID-19 Vaccine (1) [facility] Start: 1971 Depression Screen Depression Screen [facility] Start: 07-30-1969 Diabetic foot examination Diabetic foot exam [facility] Start: 07-30-1969 Diabetic retinal exam Diabetic retinal exam [facility] Start: 07-30-1969 Hemoglobin A1c measurement A1C test (Diabetic or Prediabetic) [facility] Start: 07-30-1969 Lipid panel Lipid screen [facility] Start: 07-30-1965 Pneumococcal 0-64 years Vaccine (1 - PCV) Pneumococcal 0-64 years Vaccine (1 - PCV) [facility] Start: 07-30-1965 Pneumococcal 0-64 years Vaccine (1 of 2 - PCV) Pneumococcal 0-64 years Vaccine (1 of 2 - PCV) [facility] Start: 07-30-1965 Pneumococcal 0-64 years Vaccine (1 of 2 - PPSV23) Pneumococcal 0-64 years Vaccine (1 of 2 - PPSV23) [facility] Start: 07-30-1964 COVID-19 Vaccine (1) COVID-19 Vaccine (1) [facility] Start: 01-31-1960 COVID-19 Vaccine (#1) COVID-19 Vaccine (#1) [facility] [employer] Start: 1959 Creatinine measurement Creatinine monitoring [facility] Start: 1959 Hepatitis C screening Hepatitis C screen [facility] Start: 1959 Potassium monitoring Potassium monitoring [facility] [employer] Adult NIV/Positive A irway Pressure Adult NIV/Positive Airway Pressure Respiratory Care Routine Every 4hr until discontinued starting 02/25/2024 [facility] [employer] Comment on above: Every 4hr until discontinued starting End: 05-24-2022 [facility] [employer] Work Phone: Comment on above: Once for 1 Occurrences starting 05/24/20 until 05/24/2022 End: 04-24-2021 Baseline Diagnostic Sleep Study Baseline Diagnostic Sleep Study Sleep Center Routine One Time for 1 Occurrences starting 04/24/2021 until 04/24/2021 [employer] Phone: Comment on above: One Time for 1 Occurrences starting 05/2020 until 04/24/2021 Basic metabolic 2000 panel - Serum or Plasma Basic Metabolic Panel Lab Routine Daily until discontinued starting 05/28/2021, 5 completed [employer] Phone: Comment on above: Daily until discontinued starting 2021, 5 completed End: 02-29-2024 Basic Metabolic Panel w/ Reflex to MG Basic Metabolic Panel w/ Reflex to MG Lab Routine Daily for 5 Days starting 02/25/2024 until 02/29/2024, 3 completed [employer] Comment on above: Daily for 5 Days starting 02/25/2024 unt il 02/29/2024, 3 completed CARDIAC PHASE II CARDIAC PHASE I I Card Rehab Ordered: 10/03/2021 [employer] Comment on above: Ordered: 10/03/2021 CARDIAC PHASE II CARDIAC PHASE I I Card Rehab Ordered: 10/17/2021 [employer] Comment on above: Ordered: 10/17/2021 CARDIAC PHASE II CARDIAC PHASE I I Card Rehab Ordered: 10/28/2021 [employer] Comment on above: Ordered: 10/28/2021 CARDIAC PHASE II CARDIAC PHASE I I Card Rehab Ordered: 12/02/2021 [employer] Comment on above: Ordered: 12/02/2021 CARDIAC PHASE II CARDIAC PHASE I I Card Rehab Ordered: 12/05/2021 [employer] Comment on above: Ordered: 12/05/2021 CBC panel - Blood by Automated count CBC Lab Routine Daily until discontinued starting 05/28/2021, 5 completed [employer] Phone: Comment on above: Daily until discontinued starting 2021, 5 completed End: 02-29-2024 CBC W Auto Differential panel - Blood CBC auto differential Lab Routine Daily for 5 Days starting 02/25/2024 until 02/29/2024, 3 completed [employer] Comment on above: Daily for 5 Days starting 02/25/2024 unt il 02/29/2024, 3 completed Comprehensive metabo lic 2000 panel - Serum or Plasma [facility] CPAP CPAP Respiratory Care Routine Every 4hr until discontinued starting 05/30/2021 [employer] Phone: Comment on above: Every 4hr until discontinued starting End: 07-25-2020 Culture, Urine Culture, Urine Microbiology Routine BPH with obstruction/lower urinary tract symptoms Incomplete emptying of bladder 1 Occurrences starting 07/25/2020 until 07/25/2020 [employer] Phone: Comment on above: 1 Occurrences starting 07/25/2020 until 07/25/2020 Culture, Urine Culture, Urine Microbiology Routine BPH with obstruction/lower urinary tract symptoms Incomplete emptying of bladder 07/25/2020 3:30 PM EST [employer] Phone: End: 05-13-2022 Culture, Urine [employer] Phone: Comment on above: 1 Occurrences starting 05/13/2022 until 05/13/2022 End: 08-05-2022 Culture, Urine [employer] Work Phone: Comment on above: 1 Occurrences starting 08/05/2022 until 08/05/2022 End: 08-16-2024 Culture, Wound (with Gram Stain) [employer] Comment on above: One Time for 1 Occurrences starting 07/24 until 08/16/2024 EKG 12 Lead EKG 12 Lead ECG Routine 07/22/2024 9:31 PM EST [employer] Work Phone: Glucose [Mass/volume ] in Serum or Plasma [employer] Phone: Comment on above: 4X Daily (AC & HS) until discontinued st arting 05/27/2021 As Needed until disc ontinued starting 05/27/2021 Glucose [Mass/volume ] in Serum or Plasma [employer] Comment on above: 4X Daily (AC & HS) until discontinued st arting 02/24/2024 As Needed until disc ontinued starting 02/24/2024 End: 11-11-2024 Glucose [Mass/volume] in Serum or Plasma [employer] Phone: Comment on above: One Time for 1 Occurrences starting 10/24 until 11/11/2024 Home BIPAP or CPAP Home BIPAP or CPAP Respiratory Care Routine QHS until discontinued starting 02/25/2024 [employer] Phone: Comment on above: QHS until discontinued starting 02/25/20 24 L hrt cath w/njx l ventriculography img s&i LEFT HEART CATH Chest pain [employer] Microalbumin [Mass/v olume] in Urine [facility] End: 05-24-2022 MISCELLANEOUS TESTING [employer] Phone: Comment on above: Once for 1 Occurrences starting 05/24/20 22 until 05/24/2022 End: 10-20-2024 MR Foot - right WO contrast [employer] Comment on above: 1 Occurrences starting 10/20/2024 until 10/20/2024 Oxygen therapy [Mini mum Data Set] Initiate Oxygen Therapy Protocol Respiratory Care Routine Daily until discontinued starting 05/29/2021 [employer] Phone: Comment on above: Daily until discontinued starting 2021 Oxygen therapy [Mini mum Data Set] Initiate Oxygen Therapy Protocol Respiratory Care Routine As Needed until discontinued starting 07/15/2022 [employer] Phone: Comment on above: As Needed until discontinued starting Oxygen therapy [Mini mum Data Set] Initiate Oxygen Therapy Protocol Respiratory Care Routine As Needed until discontinued starting 11/03/2023 [employer] Comment on above: As Needed until discontinued starting Oxygen therapy [Mini mum Data Set] Initiate Oxygen Therapy Protocol Respiratory Care Routine As Needed until discontinued starting 12/21/2023 [employer] Comment on above: As Needed until discontinued starting Oxygen therapy [M[employer] mum Data Set] Initiate Oxygen Therapy Protocol Respiratory Care Routine As Needed until discontinued starting 12/21/2023 [employer] Comment on above: As Needed until discontinued starting Oxygen therapy [Mini mum Data Set] Initiate Oxygen Therapy Protocol Respiratory Care Routine Daily until discontinued starting 02/24/2024 [employer] Comment on above: Daily until discontinued starting 2023 Oxygen therapy [Mini mum Data Set] Initiate Oxygen Therapy Protocol Respiratory Care Routine Eschar of toe Gangrene of toe of both feet (HCC) Critical limb ischemia of both lower extremities (HCC) As Needed until discontinued starting 07/12/2024 [employer] Comment on above: As Needed until discontinued starting Oxygen therapy [M[employer] mum Data Set] Initiate Oxygen Therapy Protocol Respiratory Care Routine Eschar of toe Critical limb ischemia of both lower extremities (HCC) Gangrene of toe of both feet (HCC) As Needed until discontinued starting 08/16/2024 [employer] Comment on above: As Needed until discontinued starting Oxygen therapy [M[employer] Data Set] Initiate Oxygen Therapy Protocol Respiratory Care Routine Critical limb ischemia of both lower extremities As Needed until discontinued starting 09/06/2024 [employer] Comment on above: As Needed until discontinued starting Oxygen therapy [M[employer] Data Set] Initiate Oxygen Therapy Protocol Respiratory Care Routine As Needed until discontinued starting 10/04/2024 [employer] Comment on above: As Needed until discontinued starting Oxygen therapy [M[employer] Data Set] Initiate Oxygen Therapy Protocol Respiratory Care Routine Critical limb ischemia of both lower extremities (HCC) As Needed until discontinued starting 11/01/2024 [employer] Comment on above: As Needed until discontinued starting Oxygen therapy [[employer] Data Set] Initiate Oxygen Therapy Protocol Respiratory Care Routine As Needed until discontinued starting 11/11/2024 [employer] Comment on above: As Needed until discontinued starting Oxygen therapy [M[employer] Data Set] Initiate Oxygen Therapy Protocol Respiratory Care Routine As Needed until discontinued starting 11/15/2024 [employer] Comment on above: As Needed until discontinued starting Oxygen therapy [M[employer] Data Set] Initiate Oxygen Therapy Protocol Respiratory Care Routine As Needed until discontinued starting 11/22/2024 [employer] Comment on above: As Needed until discontinued starting Oxygen therapy [[employer] Data Set] Initiate Oxygen Therapy Protocol Respiratory Care Routine Critical limb ischemia of both lower extremities (HCC) Eschar of toe Gangrene of toe of both feet (HCC) As Needed until discontinued starting 12/06/2024 [employer] Comment on above: As Needed until discontinued starting Oxygen therapy [[facility] Data Set] Initiate Oxygen Therapy Protocol Respiratory Care Routine Critical limb ischemia of both lower extremities (HCC) Eschar of toe Gangrene of toe of both feet (HCC) As Needed until discontinued starting 12/27/2024 [employer] Comment on above: As Needed until discontinued starting Pathology study Surgical Patholo gy Lab Routine Acute osteomyelitis of right foot (HCC) Open wound of toe(s) Release Upon Ordering for 1 Occurrences starting 11/11/2024 [employer] Comment on above: Release Upon Ordering for 1 Occurrences starting 11/11/2024 End: 12-02-2023 Percutaneous coronary intervention [employer] Comment on above: One Time for 1 Occurrences starting 11/22 until 12/02/2023 Protime-INR Protime-INR Lab STAT As Needed until discontinued starting 05/29/2021 [employer] Phone: Comment on above: As Needed until discontinued starting End: 08-05-2023 PSA screening [employer] Comment on above: 1 Occurrences starting 08/05/2023 until 08/05/2023 PTH, Intact with Ion ized Calcium PTH, Intact with Ionized Calcium Lab Routine Acute on chronic diastolic (congestive) heart failure (HCC) ASHD (arteriosclerotic heart disease) S/P angioplasty with stent Essential hypertension Mixed hyperlipidemia PAD (peripheral artery disease) ([facility]) CHRIS (obstructive sleep apnea) Stage 3a chronic kidney disease ([facility]) Obesity, unspecified class, unspecified obesity type, unspecified whether serious comorbidity present 05/06/2024 12:46 PM EST [employer] End: 05-24-2022 [facility] [employer] Phone: Comment on above: Once for 1 Occurrences starting 05/24/20 until 05/24/2022 [facility] Immunizations Immunization Date Immunization Notes Care Provider Fa doron 11-12-2022 tetanus toxoid, redu beatriz diphtheria toxoid, and acellular pertussis vaccine, adsorbed Alice Cochran DPM Work Phone: [facility] 07-29-2019 pneumococcal polysaccharide vaccine, 23 valent Alice Cochran DPM Work Phone: [facility] 06-25-2013 pneumococcal conjuga te vaccine, 13 valent Alice Cochran DPM Work Phone: [facility] Payers Date Payer Category Payer Medicare [id number] 2024 Medicare 2022 Private Health Insurance [id number] 2022 Unknown [id number] [id number] 2022 Medicare [id number] 15 2020 Unknown [id number] 1.2.840.919791.1.13.239.2.7.3.935461.315 1959 Unknown [id number] 2.16.8 40.1.949843.3.579.2.174 1959 Unknown [id number] 2.16.84 0.1.190525.3.579.2.593 1959 Unknown [id number] 2.16.84 0.1.846031.3.579.2.593 1959 Unknown [id number] 2.16.84 0.1.835522.3.579.2.593 1959 Unknown [id number] 2.16.84 0.1.047626.3.579.2.593 - Unknown [id number] 2.16. 840.1.493773.3.579.2.196 1959 Unknown [id number] 2.16. 840.1.287700.3.579.2.175 1959 Unknown [id number] 2.16.8 40.1.355721.3.579.2.1259 1959 Unknown [id number] 2.16.84 0.1.816145.3.579.2.1259 1959 Unknown [id number] 2.16.84 0.1.937370.3.579.2.1259 1959 Unknown [id number] 2.16.84 0.1.848252.3.579.2.1259 1959 Unknown [id number] 2.16.84 0.1.486169.3.579.2.1259 1959 Unknown [id number] 2.16.84 0.1.730967.3.579.2.1259 1959 Unknown [id number] 2.16.84 0.1.729710.3.579.2.1259 1959 Unknown [id number] 2.16.8 40.1.656482.3.579.2.173 1959 Unknown [id number] 2.16.8 40.1.887543.3.579.2.173 1959 Unknown [id number] 2.16.8 40.1.714639.3.579.2.173 1959 Unknown [id number] 2.16.8 40.1.539572.3.579.2.173 1959 Unknown [id number] 2.16.8 40.1.376297.3.579.2.173 1959 Unknown [id number] 2.16.8 40.1.357468.3.579.2.173 1959 Unknown [id number] 2.16.8 40.1.685373.3.579.2.173 - Unknown [id number] 2.16.8 40.1.347140.3.579.2.173 1959 Unknown [id number] 2.16.8 40.1.482818.3.579.2.173 1959 Unknown [id number] 2.16.8 40.1.079632.3.579.2.173 1959 Unknown [id number] 2.16.8 40.1.514615.3.579.2.173 1959 Unknown [id number] 2.16.8 40.1.002906.3.579.2.173 1959 Unknown [id number] 2.16.8 40.1.906091.3.579.2.173 1959 Unknown [id number] 2.16.8 40.1.681292.3.579.2.173 1959 Unknown [id number] 2.16.8 40.1.944399.3.579.2.173 1959 Unknown [id number] 2.16.8 40.1.364787.3.579.2.173 1959 Unknown [id number] 2.16.8 40.1.203180.3.579.2.173 1959 Unknown [id number] 2.16.8 40.1.235491.3.579.2.173 1959 Unknown [id number] 2.16.8 40.1.124661.3.579.2.173 1959 Unknown [id number] 2.16.8 40.1.340206.3.579.2.173 1959 Unknown [id number] 2.16.8 40.1.537441.3.579.2.173 1959 Unknown [id number] 2.16.8 40.1.765351.3.579.2.173 1959 Unknown [id number] 2.16.8 40.1.751393.3.579.2.173 1959 Unknown [id number] 2.16.8 40.1.670733.3.579.2.173 1959 Unknown [id number] 2.16.8 40.1.910424.3.579.2.173 1959 Unknown [id number] 2.16.8 40.1.950119.3.579.2.173 1959 Unknown [id number] 2.16.8 40.1.412074.3.579.2.173 1959 Unknown [id number] 2.16.8 40.1.034227.3.579.2.173 1959 Unknown [id number] 2.16.8 40.1.647210.3.579.2.173 1959 Unknown [id number] 2.16.8 40.1.773343.3.579.2.173 1959 Unknown [id number] 2.16.8 40.1.748155.3.579.2.173 1959 Unknown [id number] 2.16.8 40.1.715526.3.579.2.173 1959 Unknown [id number] 2.16.8 40.1.506536.3.579.2.173 1959 Unknown [id number] 2.16.8 40.1.053063.3.579.2.173 1959 Unknown [id number] 2.16.8 40.1.706424.3.579.2.173 1959 Unknown [id number] 2.16.8 40.1.398837.3.579.2.173 1959 Unknown [id number] 2.16.8 40.1.429649.3.579.2.173 1959 Unknown [id number] 2.16.8 40.1.327109.3.579.2.173 1959 Unknown [id number] 2.16.8 40.1.388699.3.579.2.173 1959 Unknown [id number] 2.16.8 40.1.110195.3.579.2.173 1959 Self-pay [id number] 1959 Unknown [id number] 1.2.840.014506.1.13.239.2.7.3.411071.315 Unknown [id number] 2.16.8 40.1.797969.3.579.2.531 Unknown [id number] 2.16.8 40.1.941043.3.579.2.531 Social History Date Type Detail Facility Start: 07-25-2020 End: 01-02-2022 Tobacco smoking status [facility] Never smoker [employer] Phone: Start: 07-25-2020 End: 01-02-2022 Tobacco use and exposure Never used [employer] Phone: Start: 07-25-2020 End: 12-27-2024 Alcohol intake Lifetime non-drinker (finding) [employer] Phone: Start: 07-25-2020 History SDOH Alcohol Frequency 1 [employer] Phone: Start: 1960 Sex Assigned At Not on file [employer] Phone: Start: 08-30-2021 End: 07-01-2022 Exposure to SARS-CoV-2 (event) Not sure [employer] Start: 1960 Sex Assigned At Male F [facility] Start: 07-25-2020 End: 12-27-2024 Sex Assigned At [employer] Phone: Start: 07-25-2020 End: 12-27-2024 History of Social function [employer] Phone: How often to you hav e a drink containing alcohol? Never [employer] Phone: Average Number of Drinks Not on file [employer] Start: 07-05-2020 End: 07-12-2024 Sex Male (finding) [facility] Medical Equipment Procedure Code Equipment Code Equipment Origin al Text Equipment Identifier Dates [id number] Start: 05-30-2020 USE TO INJECT INSULIN TWICE DAILY DIRECTED [id number] Start: 07-02-2020 Pen Needle, Diab etic (Bd [...] 08-04-2023 Pen Needle, Diab etic (Bd Ultra-Fine Paulian Pen Needle) 32 gauge x 5/32 needle [...] EDT Wound Management Patient Discharge Instructions CALL [phone] for questions regarding care of your wounds. [...] TPP 04/12/2025 2:30 PM [facility] 04/27/2025 1:40 PM Alma Kan MD TIFF CARD [facility] 07/12/2025 1:00 PM [facility] MED MGMT [place] 10/09/2025 1:00 PM Arabella Dyer [facility]-C [facility] Your wound care supplies were ordered from [facility], unless otherwise stated. If you do not receive them in 3 days call them at . SURVEY: You may be receiving a survey from [employer] regarding your visit today. Please complete the [...] the hospital. documented in this encounter [facility] 12-27-2024 History of Present illness Narrative Diabetic [...] History: Diagnosis Date Cerebrovascular accident (CVA) ([facility]) 2019 CHF (congestive heart failure) ([facility]) Chronic kidney failure, stage 3 (moderate) ([facility]) Chronic pain COVID-19 06/05/2021 Critical limb ischemia of both lower extremities ([facility]) 02/24/2024 Essential hypertension H/O heart artery stent MCC (current) use of insulin ([facility]) Lymphedema Obstructive sleep apnea on CPAP Type 2 diabetes mellitus without complication (HCC) Type 2 diabetes mellitus without complication ([facility]) Past Surgical History: Procedure Laterality Date ANGIOPLASTY 06/03/2021 cardiac PCI CARDIAC CATHETERIZATION 05/29/2021 Dr Mars/[facility] [place]/right radial-Severe three vessel coronary artery disease involving [...] angiography performed by Tigist Correa MD at [facility] Cardiac Cath/IR INVASIVE VASCULAR N/A 03/08/2024 Angiography lower ext bilat performed by Floyd Vee MD at [facility] CARDIAC CATH/IR LAB INVASIVE VASCULAR N/A 03/08/2024 Angioplasty common iliac artery performed by Floyd Vee MD at [facility] CARDIAC CATH/IR LAB LASER OF PROSTATE W/ GREEN LIGHT PVP 07/15/2022 CYSTOSCOPY TRANSURETHRAL RESECTION PROSTATE LASER-PVP GREENLIGHT- Dr. Ferrer LYMPH NODE DISSECTION Right 1967 TOE AMPUTATION Right 11/11/2024 TOE AMPUTATION-big toe right, flap closure of right foot performed by Quincy Penn DPM at [facility] OR TURP N/A 07/15/2022 CYSTOSCOPY TRANSURETHRAL RESECTION PROSTATE LASER-PVP GREENLIGHT performed by Akira Ferrer MD at [facility] OR Allergies Allergen Reactions Azithromycin Dizziness [...] NEEDLE PAULINA U/F 32G X 4 MM [facility], USE ONE TO INJECT INSULIN FOUR TIMES A DAY 25, Disp: , Rfl: losartan (COZAAR) 25 MG tablet, Take 1 tablet by mouth daily, Disp: , Rfl: pantoprazole (PROTONIX) 40 MG tablet, Take 1 tablet by mouth daily, Disp: , Rfl: Continuous Glucose Sensor (FREESTYLE SARMAD 3 SENSOR) [facility], , Disp: , Rfl: spironolactone (ALDACTONE) 50 [...] 12/27/2024 10:56 AM documented in this encounter [facility] 12-06-2024 Hospital Discharge instructions Rosi Campbell RN - 12/06/2024 12:23 PM EDT Wound Management Patient Discharge Instructions CALL [phone] for questions regarding care of your wounds. [...] Center 12/27/2024 10:30 AM Quincy Penn DPM [facility] WND [place] 03/15/2025 1:30 PM Floyd Vee MD [facility] VASC TPP 04/12/2025 2:30 PM Arab[facility] 04/27/2025 1:40 PM Alma Kan MD TIF CARD [facility] 07/12/2025 1:00 PM [facility] [place] 10/09/2025 1:00 PM Arabella Dyer PA-C [facility] TPP Your wound care supplies were ordered from [facility], unless otherwise stated. If you do not receive them in 3 days call them at . SURVEY: You may be receiving a survey from [facility] regarding your visit today. Please complete the [...] for the hospital. documented in this encounter [facility] 12-06-2024 History of Present illness Narrative Diabetic [...] or education Yes documented in this encounter [facility] 11-22-2024 Hospital Discharge instructions Rosi Campbell RN - 11/22/2024 11:22 AM EDT Wound Management Patient Discharge Instructions CALL [phone] for questions regarding care of your wounds. [...] 12:00 PM Quincy Penn DPM [facility]TH[facility] WND [place] 03/15/2025 1:30 PM Floyd Vee MD TIF VASC [facility] 04/12/2025 2:30 PM Arabella Dyer PA-C [facility] 04/27/2025 1:40 PM lAma Kan MD TIFF CARD [facility] 07/12/2025 1:00 PM [facility] MED MGMT [place] 10/09/2025 1:00 PM Arabella Dyer PA-C [facility]OLOGY TPP Your wound care supplies were ordered from [facility], unless otherwise stated. If you do not receive them in 3 days call them at . SURVEY: You may be receiving a survey from [facility] regarding your visit today. Please complete the [...] the hospital. documented in this encounter [facility] 11-22-2024 History of Present illness Narrative Diabetic [...] History: Diagnosis Date Cerebrovascular accident (CVA) ([facility]) 2019 CHF (congestive heart failure) ([facility]) Chronic kidney failure, stage 3 (moderate) ([facility]) Chronic pain COVID-19 06/05/2021 Critical limb ischemia of both lower extremities ([facility]) 02/24/2024 Essential hypertension H/O heart artery stent MCC (current) use of insulin ([facility]) Lymphedema Obstructive sleep apnea on CPAP Type 2 diabetes mellitus without complication (HCC) Type 2 diabetes mellitus without complication ([facility]) Past Surgical History: Procedure Laterality Date ANGIOPLASTY 06/03/2021 cardiac PCI CARDIAC CATHETERIZATION 05/29/2021 Dr Mars/[facility]/right radial-Severe three vessel coronary artery disease involving [...] angiography performed by Tigist Correa MD at [facility] Cardiac Cath/IR INVASIVE VASCULAR N/A 03/08/2024 Angiography lower ext bilat performed by Floyd Vee MD at [facility] CARDIAC CATH/IR LAB INVASIVE VASCULAR N/A 03/08/2024 Angioplasty common iliac artery performed by Floyd Vee MD at [facility] CARDIAC CATH/IR LAB LASER OF PROSTATE W/ GREEN LIGHT PVP 07/15/2022 CYSTOSCOPY TRANSURETHRAL RESECTION PROSTATE LASER-PVP GREENLIGHT- Dr. Ferrer LYMPH NODE DISSECTION Right 1967 TOE AMPUTATION Right 11/11/2024 TOE AMPUTATION-big toe right, flap closure of right foot performed by Quincy Penn DPM at [facility] OR TURP N/A 07/15/2022 CYSTOSCOPY TRANSURETHRAL RESECTION PROSTATE LASER-PVP GREENLIGHT performed by Akira Ferrer MD at [facility] OR ROS: neg. Constitutional +BM / [...] 11:27 AM documented in this encounter [facility] 11-15-2024 Hospital Discharge instructions Rosi Campbell RN - 11/15/2024 9:05 AM EDT Wound Management Patient Discharge Instructions CALL [phone] for questions regarding care of your wounds. [...] Time Provider Department Center 11/16/2024 1:00 PM [facility] [place] 11/22/2024 11:00 AM Quincy Penn DPM [facility] WND [place] 03/15/2025 1:30 PM Floyd Vee MD [facility] 04/12/2025 2:30 PM Arabella Dyer [facility] 04/27/2025 1:40 PM Alma Kan [facility] 10/09/2025 1:00 PM Arabella Dyer PA-C [facility] Your wound care supplies were ordered from [facility], unless otherwise stated. If you do not receive them in 3 days call them at . SURVEY: You may be receiving a survey from [facility] regarding your visit today. Please complete the [...] the hospital. documented in this encounter [facility] 11-15-2024 History of Present illness Narrative POV #1 POD # 4 MRR: hallux amputation & advancement flap N: constipated ROS: +appetite / -BM / +void NEG. 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 ([facility]) Lymphedema Obstructive sleep apnea on CPAP Type 2 diabetes mellitus without complication ([facility]) Type 2 diabetes mellitus without complication ([facility]) Past Surgical History: Procedure Laterality Date ANGIOPLASTY 06/03/2021 cardiac PCI CARDIAC CATHETERIZATION 05/29/2021 Dr Mars/[facility] [place]/right radial-Severe three vessel coronary artery disease involving [...] angiography performed by Tigist Correa MD at [facility] Cardiac Cath/IR INVASIVE VASCULAR N/A 03/08/2024 Angiography lower ext bilat performed by Floyd Vee MD at [facility] CARDIAC CATH/IR LAB INVASIVE VASCULAR N/A 03/08/2024 Angioplasty common iliac artery performed by Floyd Vee MD at [facility] CARDIAC CATH/IR LAB LASER OF PROSTATE W/ GREEN LIGHT PVP 07/15/2022 CYSTOSCOPY TRANSURETHRAL RESECTION PROSTATE LASER-PVP GREENLIGHT- Dr. Ferrer LYMPH NODE DISSECTION Right 1967 TURP N/A 07/15/2022 CYSTOSCOPY TRANSURETHRAL RESECTION PROSTATE LASER-PVP GREENLIGHT performed by Akira Ferrer MD at [facility] OR PE: VSS, Afebrile, NAD, A&O [...] 9:20 AM documented in this encounter [facility] 11-11-2024 History of Present illness Narrative Discharge [...] with patient. documented in this encounter [facility] 11-11-2024 Hospital Discharge instructions Yumiko Toussaint RN [...] op period. documented in this encounter [facility] 11-09-2024 History of Present illness Narrative Images [...] Alice Cochran DPM documented in this encounter [facility] 11-01-2024 Hospital Discharge instructions Rosi Campbell RN - 11/01/2024 11:58 AM EDT Wound Management Patient Discharge Instructions CALL [phone] for questions regarding care of your wounds. [...] toe daily Take antibiotic as directed, Keflex bead picker at [facility] in [place] Call us in a week with what you have decided. Return to clinic Thursday11/22/24 at 11:00AM Next appointment: Future Appointments Date Time Provider Department Center 11/16/2024 1:00 PM [facility] MED MGMT [place] 11/22/2024 11:00 AM Quincy Penn DPM [facility] WND [place] 03/15/2025 1:30 PM Floyd Vee MD GRADY VASC [facility] 04/12/2025 2:30 PM Arabella Dyer PA-C [facility] 04/27/2025 1:40 PM Alma Kan MD GRADY CARD TPP 10/09/2025 1:00 PM Arabella Dyer PA-C [facility] UROLOGY [facility] Your wound care supplies were ordered from [facility], unless otherwise stated. If you do not receive them in 3 days call them at . SURVEY: You may be receiving a survey from [facility] regarding your visit today. Please complete the [...] for the hospital. documented in this encounter [facility] 11-01-2024 History of Present illness Narrative Diabetic [...] or education Yes documented in this encounter [facility] 10-04-2024 Hospital Discharge instructions Rosi Campbell RN - 10/04/2024 11:30 AM EDT Wound Management Patient Discharge Instructions CALL [phone] for questions regarding care of your wounds. [...] prior to next appointment Call to schedule [phone] Return to clinic Thursday11/01/24 at 11:30pm SURVEY: You may be receiving a survey from [facility] regarding your visit today. Please complete [...] for the hospital. documented in this encounter [facility] 10-04-2024 History of Present illness Narrative Diabetic Quality Measure Benchmarks: FSBS: RESULT 240 0800 Hemoglobin A1c [id number] and is < 8%= YES Lab Results Component Value Date LABA1C 7.7 (H) 02/24/2024 LDL is <100 Yes Blood Pressure is under < 140/90 Yes Tobacco Non use Yes Aspirin Use/blood thinner Yes Information sent to PCP Yes Instructions given to Patient regarding follow up and or education Yes documented in this encounter [facility] 09-06-2024 Hospital Discharge instructions Rosi Campbell RN - 09/06/2024 11:54 AM EDT Wound Management Patient Discharge Instructions CALL [phone] for questions regarding care of your wounds. [...] Center 09/14/2024 12:45 PM Floyd Vee [facility] 10/04/2024 11:00 AM Quincy Penn DPM [facility] WND [place] 10/05/2024 1:00 PM Arabella Dyer PA-C TIFF UROLOGY [facility] 10/12/2024 11:00 AM [facility] MED MGMT [place] 10/20/2024 2:00 PM Lev Duarte, PRESIDENT AND CMO - ENVIRONMENTAL EDUCATOR TIFF CARD [facility] SURVEY: You may be receiving a survey [...] for the hospital. documented in this encounter [facility] 09-06-2024 History of Present illness Narrative Diabetic [...] or education Yes documented in this encounter [facility] 08-16-2024 Hospital Discharge instructions Rosi Campbell RN - 08/16/2024 12:04 PM EDT Wound Management Patient Discharge Instructions CALL [phone] for questions regarding care of your wounds. [...] 10:45 AM Arabella Dyer PA-C [facility] UROLOG[facility] 09/06/2024 11:30 AM Quincy Penn, DPM [facility] [place] 09/14/2024 12:45 PM Floyd Vee MD TIFF VASC [facility] 09/19/2024 2:00 PM Lev Duarte, PRESIDENT AND CMO - ENVIRONMENTAL EDUCATOR [facility] 10/12/2024 11:00 AM [facility] [place] SURVEY: You may be receiving a survey from [facility] regarding your visit today. Please complete the [...] the hospital. documented in this encounter [facility] 08-16-2024 History of Present illness Narrative Diabetic [...] Needs- BEE- 2219 kcal Total Calorie Needs- 0450-9974 (18-23 kcal/kg) Total Protein Needs- 97-113 (1.2-1.4 g/kg) Patient Diagnosis Date Cerebrovascular accident (CVA) ([facility]) 2019 CHF (congestive heart failure) ([facility]) Chronic kidney failure, stage 3 (moderate) ([facility]) Chronic pain COVID-19 06/05/2021 Critical limb ischemia of both lower extremities ([facility]) 02/24/2024 Essential hypertension H/O heart artery stent 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 Nutrition Therapy Recommendations- Recommend obtain current vitamin D status and supplement as indicated. Follow-up- quarterly Electronically signed by Dann Velázquez RDN, LD 08/16/2024, 12:46 PM PQRS Measure: #1(Diabetes: Hemoglobin A1C Poor Control) - no PQRS Measure #130 (Documentation of Current Medications in Medical Record) - yes documented in this encounter [facility] 07-29-2024 Note Admission Informatio n Patient: Piotr Kerr : 1960 Date of Admission: 07/23/2024 09:47:21 Date of Discharge: Code Status: Full Resuscitation PCP: Jorge Pritchett DO Consult: Bita GREENBERG, Werner Rodriguez; Autumn Dukes DPM; Harrison Beltran DO Follow Up with Provider With When Contact Information Akira Ferrer 08/03/2024 09:45 AM EDT [address] [facility], [address] [place] [address] Business (1) Additional Instructions: Appointment Scheduled Harrison Beltran 07/29/2024 02:00 PM EST [address] [place], [place] Additional Instructions: Appointment Scheduled Jorge Pritchett DO Within 1 week [address] [place] [address]- Additional Instructions: Jorge Pritchett In 0 days [address] [facility] [address]- Business (1) Additional Instructions: 63-year-old male with past medical history type 2 diabetes, CVA, CAD status post stent, CHRIS, CHF unspecified, CKD who presented to outside facility for feeling unwell was found to be in acute renal failure and was transferred to [facility] Assessment #Dizziness/tinnitus, improving # Constipation likely secondary [...] coordination is 35minutes. Medications New Medications Medicine [facility] [address], [place] [id number], [phone] calcitriol (calcitriol 0.5 mcg oral capsule) 0.5 Microgram Oral (given by mouth) every day for 30 Days. Refills: 0. Last Dose: meclizine (meclizine 25 mg oral tablet) 12.5 Milligram Oral (given by mouth) 2 times a day for 14 Days. Refills: 0. Last Dose: Medications That Were Updated - Follow Current Instructions [facility] [address], [place] [id number], [phone] Current: furosemide (Lasix 40 mg oral tablet) [...] Tabs Sublingual (dissolve (more content not included)... [facility] 07-27-2024 Note Chief Complaint Chronic dizziness and tinnitus Reason for Consultation Evaluate for recurrent dizziness in the setting of chronic renal disease History of Present Illness This is a 63-year-old gentleman with a history of diabetes with associated neuropathy, chronic renal insufficiency followed by Dr. Beltran transferred to [facility] on July 23 because of worsening renal presented to the [facility] in [place] and was weak that labs included a BUN of 127 and a creatinine of 4.8. 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 Neurological opinion regarding his dizziness was requested on July 23 BUN 120 creatinine 4.11. Neurological opinion regarding his dizziness was requested. While living in [place], he did have a right CVA, resulting [...] Following his stroke he did move to [facility] Review of Systems Constitutional: [No fevers, [...] Dose: 07/27/24 15:00:00 EST, Dispense From Location: [facility], 07/27/24 15:00:00 EST Problem List/Past [...] PRN heparin, 5000 units= 1 mL, Subcutaneous, t5ph-Ackgnokn Times hydrocodone-acetaminophen 5 mg-325 mg oral tablet, [...] 0.9% injectable so (more content not included)... [facility] 07-25-2024 Note Reason for Consultat ion right foot ulcer, diabetic History of Present Illness 63-year-old male with type 2 diabetes and neuropathy seen at [facility] for diabetic foot ulcer on the right [...] Dose: 07/26/24 9:00:00 EST, Dispense From Location: [facility], 07/25/24 12:23:00 EST Surgical Shoe/Cast Shoe 1) [...] Ongoing No qualifyin (more content not included)... [facility] 07-23-2024 Note Reason for Consultat ion severe NEO History of Present Illness 63-year-old male who is well known to the under-signed, with past medical history of advanced renal disease stage IV, type 2 diabetes, CVA, CAD status post stent, CHRIS, CHF unspecified who presented to [facility] for feeling unwell was found to be in acute renal failure, with much worse advanced renal disease. The ED physician noted me and I recommended he be transferred to [facility] for possible SYSTEMS PLANNER initiation. Most recent labs showed no leukocytosis [...] Dose: 07/24/24 9:00:00 EST, Dispense From Location: [facility], 07/23/24 23:40:00 EST Sodium Chloride 0.9% intravenous [...] PRN heparin, 5000 units= 1 mL, Subcutaneous, u7wv-Yfdyhnmm Times hydrocodone-acetaminophen 5 mg-325 mg oral tablet, 1 tabs, Oral, q4hr, PRN insulin aspart, see comments, Subcutaneous, ACHS insulin glargine, 50 units, Subcutaneous, Daily naloxone, 0.4 mg= 1 mL, IV Push, q2min, PRN Normal Saline Flush 0.9% injectable solution, 10 mL, IV Push, As Indicated, PRN Normal Saline Flush 0.9% injectable solution, 10 mL, IV Push, BID nys (more content not included)... [facility] 07-23-2024 Note Assessment/Plan 63-year-old male with past medical history type 2 diabetes, CVA, CAD status post stent, CHRIS, CHF unspecified, CKD who presented to outside facility for feeling unwell was found to be in acute renal failure and was transferred to [facility] #Acute renal failure #Uremia #Lactic acidosis #Hypocalcemia [...] acute renal failure and was transferred to [facility]. Patient follows with Dr. Thomas. Most recent [...] As Indicated, PRN heparin, 5000 units, Subcutaneous, i0hg-Rdwdelhf Times hydrocodone-acetaminophen 5 mg-325 mg oral tablet, [...] by Yoel Du DO 07/23/24 11:07 EST [facility] 07-12-2024 Evaluation note Diagnosis Onset Date Resolution [...] with hyperglycemia acute September 21 025 2:38pm [facility] Work Phone: 1(844) 837-976902-18-2025 Hospital Discharge instructions* Discharge Instructions* Rosi Campbell RN - 07/12/2024 11:04 AM EST Wound Management Patient Discharge Instructions CALL [phone] for questions regarding care of your wounds. [...] AM [facility] MED MGMT [place] 08/02/2024 11:30 AM Quincy Penn DPM [facility] [place] 08/16/2024 2:00 PM Alma Kan MD TIFF CARD [facility] 09/14/2024 12:45 PM [facility] SUR[facility]Y: You may be receiving a survey from [facility] regarding your visit today. Please complete the [...] fee for the hospital. [facility] History of Present illness Narrative* Rosi Campbell [...] and or education Yes [facility] History of Present illness Narrative* Alice Cochran [...] understanding. Alice Cochran DPM documented in this [facility]01-02-2025 Instructions* Patient Instructions* Alice Cochran DPM - 05/26/2024 3:15 PM EST As noted documented in this [facility]12-19-2024 Evaluation note* Diagnosis Onset Date Resolution Status Admit Date Cardiomyopathy, ischemic acute May 12, 2024 11:34am Cerebral atherosclerosis acute May 12, 2024 11:34am Chronic heart failure with preserved ejection fraction (HFpEF) acute May 12 11:34am Chronic venous insufficiency of lower extremity acute May 12 11:34am Diabetes mellitus with perip heral angiopathy acute May 12 11:34am Hypercholesterolemia acute [facility] 2023 11:34am Primary hypertension acute [facility] 2023 11:34am Stage 3b chronic kidney disease acut e May 12, 2024 11:34am Type 2 diabetes mellitus wit h hyperglycemia acute May 12 11:34am [facility] Work Phone: 1(892) 314-895210-30-2024 History of Present illness Narrative* Alice Cochran [...] understanding. Alice Cochran DPM documented in this [facility]10-30-2024 Instructions* Patient Instructions* Alice Cochran DPM - 03/23/2024 1:45 PM EDT As noted documented in this [facility]10-06-2024 Hospital Discharge instructions* Discharge Instructions* Gabby Orlando MD - 02/28/2024 7:42 AM EDT Please bead picker the antibiotic at take as prescribed. For pain: Tylenol can be taken every 6 hours. Maximum dose of tylenol in a 24 hour period is 4000mg. You can also take your previously prescribed codeine as needed every 6-8 hours as needed for break through pain not controlled by the tylenol. Please call your psychology fellow on Thursday to schedule follow up appointment for re- wrapping of the leg. Return to ED for re-evaluation if you develop fevers, increasing redness, increasing swelling, numbness, tingling, weakness or pain. [facility] History of Present illness Narrative* Froy Reagan RN - 02/27/2024 4:15 PM EDT Discharge education and instructions reviewed with the patient and his spouse. * Froy Reagan RN - 02/27/2024 3:47 PM EDT The patients preferred pharmacy is not open on the weekends, therefore antibiotic was called into [facility] in [place] per patient request. * Jorge Crum - [...] Assessment: (P) Calm Intervention: (P) Discussed belief system/spiritism practices/avis, Discussed illness injury and it s [...] Procedure Component Value Units Date/Time Culture, Urine [[id number]] Collected: 02/24/24 1252 Order Status: Completed Specimen: [...] home CPAP machine Nutrition status: Obesity, non-morbid Supervisor Garage consult appreciated Hospital Prophylaxis: DVT: Lovenox Stress [...] 02/27/2024 8:17 AM EDT Physical Therapy Facility/Department: [facility] Daily Treatment Note NAME: [...] Minutes Dipti Adams PTA * Ruth Alcaraz [facility] - 02/26/2024 2:01 PM EDT Images from the original note were not included. [facility] Department of Pharmacy Pharmacy Renal Adjustment [...] for CrCl <50mL/min Thank you, Ruth Alcaraz [facility],02/26/2024,2:00 PM * Dipti Adams PTA - 02/26/2024 12:24 PM EDT Physical Therapy Facility/Department: [facility] Daily Treatment Note NAME: [...] Assessment: (P) Calm Intervention: (P) Discussed belief system/spiritism practices/avis, Discussed illness injury and it s impact Outcome: (P) Engaged in conversation, Encouraged * Shalini Del Valle PTA - 02/26/2024 8:35 AM EDT Physical Therapy Facility/Department: [facility] Daily Treatment Note NAME: [...] Procedure Component Value Units Date/Time Culture, Urine [[id number]] Collected: 02/24/24 1252 Order Status: Completed Specimen: [...] home CPAP machine Nutrition status: Obesity, non-morbid Supervisor Garage consult appreciated Hospital Prophylaxis: DVT: Lovenox Stress [...] and assessment were completed at this time. Manager Marketing Communications walked patient through the medications that would [...] Assessment: (P) Calm Intervention: (P) Discussed belief system/spiritism practices/avis, Discussed illness injury and it s impact Outcome: (P) Encouraged, Engaged in conversation * Yumiko Montes PTA - 02/25/2024 10:21 AM EDT Physical Therapy Facility/Department: [facility] Daily Treatment Note NAME: [...] loss Fluid Accumulation: Moderate to Severe Extremities Public Works Manager Strength: Not Performed Nutrition Assessment: Altered nutrition [...] Na Anthropometric Measures: Height: 182.9 cm (6') [place] Body Weight (IBW): 178 lbs (81 kg) [...] Used for Energy Requirements: Current Energy (kcal/day): 9333-3887 (15-18) Weight Used for Protein Requirements: [place] Protein (g/day): 97-113 (1.2-1.4) Method Used for [...] this time Dann Velázquez RD, LD Contact: [phone] * Fred Villegas MD - 02/25/2024 7:55 [...] Procedure Component Value Units Date/Time Culture, Urine [[id number]] Collected: 02/24/24 1252 Order Status: Sent Specimen: [...] in home CPAP Nutrition status: Obesity, non-morbid Supervisor Garage consult appreciated Hospital Prophylaxis: DVT: Lovenox Stress [...] Albert RN - 02/24/2024 11:45 PM EDT Manager Marketing Communications rewraped patient's legs and put the bed senior loss control specialist on the bed. Patient also requested to use the hospital cpap machine as he does not have his from home. New order received. Patient is aware respiratory will be in to set it up. * Paradise Albert RN - 02/24/2024 7:15 PM EDT Vitals and assessment were completed at this time. Manager Marketing Communications walked patient through the medications that would be administered tonight and encouraged patient to ask questions about the medications and therapies. Manager Marketing Communications redressed patient's BLL kirit wraps. Call light and bedside table remain within reach. Patient denies needs at this time. Care ongoing. * Yumiko Sarabia - 02/24/2024 5:37 PM EDT Manager Marketing Communications called to bring patients home medication * [...] or converted to UFH per the approved [facility] protocol and table as identified below. Piotr [...] room 319 from Er. Report received from JIG BORING MACHINE SET UP OPERATOR. VS and assessment completed. Patient denies pain. Plan of care gone over with patient and spouse. Compression kirit wraps place on bilateral legs. Pictures taken of BLE and placed in charts. [facility] History of Present illness Narrative* Alice Cosby [...] understanding. Alice Cochran DPM [facility] [id number] Instructions* Patient Instructions* Alice Cochran DPM - 02/17/2024 9:45 AM EDT Continue wound care measures documented in this [facility]Mer[facility] [id number] History of Present illness Narrative* Alice Cochran [...] understanding. Alice Cochran DPM documented in this [facility]09-13-2024 Instructions* Patient Instructions* Alice Cochran DPM - 02/05/2024 10:00 AM EDT As noted documented in this [facility]07-29-2024 History of Present illness Narrative* Nesha Campoverde RN - 12/21/2023 3:58 PM EDT All discharge instructions reviewed, questions answered, paper signed and given copy. Patient discharged per wheelchair with and belongings. * Nesha Campoverde RN - 12/21/2023 1:05 PM EDT Care received from Juan C Mayen rn and Bettina Madrigal rn Patient received post cath to [facility]. Assessment obtained. Right radial site with vascband intact. Nohematoma noted. Restrictions reviewed with patient and . Patient without complaints. and son and bedside. * Nesha Campoverde RN - 12/21/2023 8:21 AM EDT Patient admitted, consent signed and questions answered. Patient ready for procedure. Call light toreach with side rails up 2 of 2. Right wrist and B/L groin clipped with blurb writer and Juan C Mayen rn present. and son at bedside with patient. History and physical to be updated. * Nesha Campoverde RN - 12/18/2023 10:58 AM EDT Attempted pre-procedure call. VM message left for patient to return call. [phone] documented in this encounterBON [facility] Discharge instructions* Discharge Instructions* Nesha Campoverde [...] taking more than one drug. This includes pbwc-pyj-memlirk medicine and herb or dietary supplements. Plan [...] unless otherwise instructed documented in this encounterBON [facility]06-14-2024 History of Present illness Narrative* Yumiko Montes PTA - 11/06/2023 12:15 PM EDT [facility] Lymphedema Treatment Date: 11/06/2023 Patient: Piotr Kerr : 1960 CSN #: [id number] Referring Physician: Referring Provider (secondary): Dr. Lucius MD Diagnosis: Lymphedema, I89.0; CHF I50.32; Treatment Diagnosis: B LE lymphedema PT Insurance Information: [employer] Total # of Visits Approved: 12 Total [...] functional strengthening for improved mobility and endurance.-MET Waste Recycler Goals Time Frame for Skilled Nursing Goals : 6 weeks Skilled Nursing Goal 1: Patient will be safe and independent with his lymphedema management. Skilled Nursing Goal 2: Patient will demonstrate a 1-2cm decrease in B LE girth measurements in order to improve ambulation tolerance.-progressing Skilled Nursing Goal 3: Patient will be fitted for an at home pump in order to be independent with his lymphedema management.-MET Skilled Nursing Goal 4: Patient to have improved B LE strength >/=4/5 grossly all major joints and planes for improved functional strength. Minutes Tracking: Time In: 1215 Time Out: 1315 Minutes: 60 Yumiko Montes PTA, Date: 11/06/2023 documented in this encounterBON [facility]06-[facility]-2024 History of Present illness Narrative* Kim Vázquez [...] morning of surgery. Awaiting to here from business intelligence manager when to hold Plavix and ASA. documented in this encounterBON [facility]05-30-[facility] History of Present illness Narrative* Yumiko Montes PTA - 10/22/2023 11:00 AM EDT [facility] Lymphedema Treatment Date: 10/22/2023 Patient: Piotr Kerr : 1960 CSN #: [id number] Referring Physician: Referring Provider (secondary): Dr. Lucius MD Diagnosis: Lymphedema, I89.0; CHF I50.32; Treatment Diagnosis: B LE lymphedema PT Insurance Information: [employer] Total # of Visits Approved: 12 Total [...] functional strengthening for improved mobility and endurance.-MET Waste Recycler Goals Time Frame for Waste Recycler Goals : 6 weeks Waste Recycler Goal 1: Patient will be safe and independent with his lymphedema management. Skilled Nursing Goal 2: Patient will demonstrate a 1-2cm decrease in B LE girth measurements in order to improve ambulation tolerance. Waste Recycler Goal 3: Patient will be fitted for an at home pump in order to be independent with his lymphedema management. Waste Recycler Goal 4: Patient to have improved B LE strength >/=4/5 grossly all major joints and planes for improved functional strength. Minutes Tracking: Time In: 1116 Time Out: 1203 Minutes: 47 Yumiko Montes PTA, Date: 10/22/2023 documented in this encounterBON [facility]12-20-2023 Evaluation note* Encounter Date Diagnosis Assessment Notes [...] Uncontrolled but will be better/safer addressed by Support Representative Apr, Pure hypercholestero lemia (ICD-10 - E78.00) Instructed on diet and exercise with continued statin therapy.Discussed the beneficial effects of lowering cholesterol in reducing the risk for cerebrovascular and cardiovascular disease. Apr, Obstructive sleep ap ellyn (ICD-10 - G47.33) This patient is aware of the benefits associated with CHRIS: With continued use, the patient reduces the risk for MD, CVA, HTN, cardiac dysrhythmias and sudden cardiac [...] CHRIS treatment. Apr, Hyperparathyroidism (ICD-10 - E21.3) Support Representative evaluating this for patient - elevated Ca and PTH - likely will require surgical treatment. - CKD complicates evaluation Apr, Hx of cerebral infar ction (ICD-10 - Z86.73) COntinue secondary prevention measures Instructed on stroke symptoms and to report to ER for any suspicious symptoms Apr, medical terminologist (current) use of insulin (ICD-10 - Z79.4) Recommend CGM Apr, Other The patient is instructed on adequate control of hypertension and diabetes, if appropriate. They are also educated on the associated risks of NSAIDs and PPI use with kidney disease. They were instructed on adequate fluid balance and to avoid dehydration. [facility] Other 12-14-2023 Evaluation note* Encounter Date Diagnosis Assessment Notes Treatment Notes Treatment Clinical Notes Apr, Cardiomyopathy, ischemic (ICD-10 - I25.5) NM stress: inferolateral ischemia 06/2022 Echo: LVEF 55%, LVH, diastolic dysfunction Apr, Chronic diastolic heart failure (ICD-10 - I50.32) [facility] Other 12-03-2023 Evaluation note* Encounter Date Diagnosis Assessment Notes Treatment Notes Treatment Clinical Notes Apr, Type 2 diabetes mellitus with diabetic peripheral angiopathy without gangrene (ICD-10 - E11.51) [facility] Other 11-06-2023 Evaluation note* Encounter Date Diagnosis Assessment Notes Treatment Notes Treatment Clinical Notes Mar, Stage 3b chronic kidney disease (ICD-10 - N18.32) [facility] Other 09-20-2023 Evaluation note* Encounter Date Diagnosis [...] soapy water and rinse Scheduled to see Poly Operator Jan, Stage 3b chronic kid kana disease [...] DM and HTN Recommend regular appt w/ Poly Operator Jan, Essential hypertensi on (ICD-10 - I10) This patient is instructed to consume a healthy, low-fat, low-salt diet. They are also encouraged to continue exercise to achieve/maintain a normal BMI. Uncontrolled but medications adjusted by Support Representative - seeing again in 2 days - [...] use, the patient reduces the risk for MD, CVA, HTN, cardiac dysrhythmias and sudden cardiac [...] Hyperparathyroidism (ICD-10 - E21.3) Evaluation underway w/ Support Representative NM parathyroid scan and 24 hour urine for Ca pending Jan, Hx of cerebral infar ction (ICD-10 - Z86.73) No acute neurologic deficits. 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, medical terminologist (current) use of insulin (ICD-10 - Z79.4) Jan, Subconjunctival hemorrhage of right eye (ICD-10 - H11.31) [facility] Other 08-15-2023 Evaluation note* Encounter Date Diagnosis Assessment Notes Treatment Notes Treatment Clinical Notes Dec, Essential hypertension (ICD-10 - I10) [facility] Other 07-27-2023 History of Present illness Narrative* Rashel Cárdenas, PT - 12/18/2022 1:45 PM EDT [facility] Daily Note Patient: Piotr Kerr : 1960 CSN #: [id number] Referring Physician: Jorge Pritchett DO Date: 12/18/2022 Diagnosis: M54.50 low back pain, R29.898 weakness Treatment Diagnosis: weakness Onset Date: 08/13/22 PT Insurance Information: [employer] Total # of Visits Approved: 30 Per [...] order to improve functional strength---met 20 seconds Waste Recycler Goals Time Frame for Skilled Nursing Goals : 6 weeks Waste Recycler Goal 1: Pt will be safe and independent with his HEP Waste Recycler Goal 2: Pt will increase L LE strength to >/=4-/5 and R LE strength to 4/5 in order toincrease ambulation tolerance-met (R LE: 4 to 4+/5; L LE: 4/5 grossly except ankle DF: 4-/5) Skilled Nursing Goal 3: Pt will be able to ambulate for 10 minutes with LRAD and no LOB with minimal fatigue in order to increase community ambulation-progressing (~5.5min max before fatigue/SOB requiring seated rest break) Skilled Nursing Goal 4: Pt will increase tinetti score to >/=20/28 in order to reduce fall risk Minutes Tracking: Time In: 1345 Time Out: 1444 Minutes: 59 Timed Code Treatment Minutes: 47 Minutes Rashel Cárdenas PT, DPT Date: 12/18/2022 documented in this encounterBON [facility]07-20-2023 History of Present illness Narrative* Rashel Cárdenas PT - 12/11/2022 12:30 PM EDT [facility] Daily Note Patient: Piotr Kerr : 1960 CSN #: [id number] Referring Physician: Jorge Pritchett DO Date: 12/11/2022 Diagnosis: M54.50 low back pain, R29.898 weakness Treatment Diagnosis: weakness Onset Date: 08/13/22 PT Insurance Information: [employer] Total # of Visits Approved: 30 Per [...] order to improve functional strength---met 20 seconds Skilled Nursing Goals Time Frame for Skilled Nursing Goals : 6 weeks Waste Recycler Goal 1: Pt will be safe and independent with his HEP Waste Recycler Goal 2: Pt will increase L LE strength to >/=4-/5 and R LE strength to 4/5 in order toincrease ambulation tolerance-met (R LE: 4 to 4+/5; L LE: 4/5 grossly except ankle DF: 4-/5) Waste Recycler Goal 3: Pt will be able to ambulate for 10 minutes with LRAD and no LOB with minimal fatigue in order to increase community ambulation-progressing (~5.5min max before fatigue/SOB requiring seated rest break) Waste Recycler Goal 4: Pt will increase tinetti score to >/=20/28 in order to reduce fall risk Minutes Tracking: Time In: 1230 Time Out: 1329 Minutes: 59 Timed Code Treatment Minutes: 44 Minutes Rashel Cárdenas PT, DPT Date: 12/11/2022 documented in this encounterBON [facility]07-12-2023 History of Present illness Narrative* Shirin Bajwa, FINANCIAL SERVICES TECHNICIAN - 12/03/2022 2:30 PM EDT [facility] Daily Note Patient: Piotr Kerr : 1960 CSN #: [id number] Referring Physician: Jorge Pritchett DO Date: 12/03/2022 Treatment Diagnosis: weakness Onset Date: 08/13/22 PT Insurance Information: [employer] Total # of Visits Approved: 30 Per [...] order to improve functional strength---met 20 seconds Waste Recycler Goals Time Frame for Waste Recycler Goals : 6 weeks Skilled Nursing Goal 1: Pt will be safe and independent with his HEP Waste Recycler Goal 2: Pt will increase L LE strength to >/=4-/5 and R LE strength to 4/5 in order toincrease ambulation tolerance-met (R LE: 4 to 4+/5; L LE: 4/5 grossly except ankle DF: 4-/5) Skilled Nursing Goal 3: Pt will be able to ambulate for 10 minutes with LRAD and no LOB with minimal fatigue in order to increase community ambulation-progressing (~5.5min max before fatigue/SOB requiring seated rest break) Waste Recycler Goal 4: Pt will increase tinetti score to >/=20/28 in order to reduce fall risk Minutes Tracking: Time In: 1430 Time Out: 1528 Minutes: 58 Timed Code Treatment Minutes: 41 Minutes Shirin Bajwa, FINANCIAL SERVICES TECHNICIAN Date: 12/03/2022 documented in this encounterBON [facility]07-10-2023 History of Present illness Narrative* Rashel Cárdenas, PT - 12/01/2022 2:30 PM EDT [facility] Daily Note Patient: Piotr Kerr : 1960 CSN #: [id number] Referring Physician: Jorge Pritchett DO Date: 12/01/2022 Diagnosis: M54.50 low back pain, R29.898 weakness Treatment Diagnosis: weakness Onset Date: 08/13/22 PT Insurance Information: [employer] Total # of Visits Approved: 30 Per [...] order to improve functional strength---met 20 seconds Waste Recycler Goals Time Frame for Skilled Nursing Goals : 6 weeks Waste Recycler Goal 1: Pt will be safe and independent with his HEP Skilled Nursing Goal 2: Pt will increase L LE strength to >/=4-/5 and R LE strength to 4/5 in order toincrease ambulation tolerance-met (R LE: 4 to 4+/5; L LE: 4/5 grossly except ankle DF: 4-/5) Skilled Nursing Goal 3: Pt will be able to ambulate for 10 minutes with LRAD and no LOB with minimal fatigue in order to increase community ambulation-progressing (~5.5min max before fatigue/SOB requiring seated rest break) Waste Recycler Goal 4: Pt will increase tinetti score to >/=20/28 in order to reduce fall risk Minutes Tracking: Time In: 1429 Time Out: 1524 Minutes: 55 Timed Code Treatment Minutes: 45 Minutes Rashel Cárdenas PT, DPT Date: 12/01/2022 documented in this encounterBON [facility]06-20-2023 Evaluation note* Encounter Date Diagnosis Assessment Notes [...] use, the patient reduces the risk for MD, CVA, HTN, cardiac dysrhythmias and sudden cardiac [...] of u rine (ICD-10 - R33.8) Oct, medical terminologist (current) use of insulin (ICD-10 - Z79.4) [facility] Other 06-16-2023 History of Present illness Narrative* Rashel Cárdenas, PT - 11/07/2022 1:00 PM EDT [facility] Daily Note Patient: Piotr Kerr : 1960 CSN #: [id number] Referring Physician: Jorge Pritchett DO Date: 11/07/2022 Diagnosis: M54.50 low back pain, R29.898 weakness Treatment Diagnosis: weakness Onset Date: 08/13/22 PT Insurance Information: [employer] Total # of Visits Approved: 30 Per [...] order to improve functional strength---met 20 seconds Skilled Nursing Goals Time Frame for Waste Recycler Goals : 6 weeks Skilled Nursing Goal 1: Pt will be safe and independent with his HEP Skilled Nursing Goal 2: Pt will increase L LE strength to >/=4-/5 and R LE strength to 4/5 in order toincrease ambulation tolerance-met (R LE: 4 to 4+/5; L LE: 4/5 grossly except ankle DF: 4-/5) Waste Recycler Goal 3: Pt will be able to ambulate for 10 minutes with LRAD and no LOB with minimal fatigue in order to increase community ambulation-progressing (~5.5min max before fatigue/SOB requiring seated rest break) Skilled Nursing Goal 4: Pt will increase tinetti score to >/=20/28 in order to reduce fall risk Minutes Tracking: Time In: 1258 Time Out: 1345 Minutes: 47 Timed Code Treatment Minutes: 46 Minutes Rashel Cárdenas PT, DPT Date: 11/07/2022 documented in this encounterBON [facility]06-05-2023 History of Present illness Narrative* Shirin Bajwa, ALEXANDRA - 10/27/2022 1:00 PM EDT [facility] Daily Note Patient: Piotr Kerr : 1960 CSN #: [id number] Referring Physician: Jorge Pritchett DO Date: 10/27/2022 Treatment Diagnosis: weakness Onset Date: 08/13/22 PT Insurance Information: [employer] Total # of Visits Approved: 24 Per [...] He states he's had f/u appts with business intelligence manager and urologist in the meantime. He reports [...] 6: Sit to stand with eccentric lowering [id number] today with BUE support --difficulty witheccentric lower [...] order to improve functional strength---met 20 seconds Waste Recycler Goals Time Frame for Waste Recycler Goals : 6 weeks Waste Recycler Goal 1: Pt will be safe and independent with his HEP Skilled Nursing Goal 2: Pt will increase L LE strength to >/=4-/5 and R LE strength to 4/5 in order toincrease ambulation tolerance-met (R LE: 4 to 4+/5; L LE: 4/5 grossly except ankle DF: 4-/5) Skilled Nursing Goal 3: Pt will be able to ambulate for 10 minutes with LRAD and no LOB with minimal fatigue in order to increase community ambulation-progressing (~5.5min max before fatigue/SOB requiring seated rest break) Skilled Nursing Goal 4: Pt will increase tinetti score to >/=20/28 in order to reduce fall risk Minutes Tracking: Time In: 1300 Time Out: 1345 Minutes: 45 Timed Code Treatment Minutes: 44 Minutes Shirin Bajwa PTA Date: 10/27/[address] [place] [employer] Work Phone: 1(468) 705-470105-12-2023 History of Present illness Narrative* Shirin Bajwa PTA - 10/03/2022 12:30 PM EDT [facility] Daily Note Patient: Piotr Kerr : 1960 CSN #: [id number] Referring Physician: Jorge Pritchett DO Date: 10/03/2022 Treatment Diagnosis: weakness Onset Date: 08/13/22 PT Insurance Information: [employer] Total # of Visits Approved: 24 Per [...] order to improve functional strength---met 20 seconds Waste Recycler Goals Time Frame for Skilled Nursing Goals : 6 weeks Skilled Nursing Goal 1: Pt will be safe and independent with his HEP Waste Recycler Goal 2: Pt will increase L LE strength to >/=4-/5 and R LE strength to 4/5 in order toincrease ambulation tolerance-met (R LE: 4 to 4+/5; L LE: 4/5 grossly except ankle DF: 4-/5) Skilled Nursing Goal 3: Pt will be able to ambulate for 10 minutes with LRAD and no LOB with minimal fatigue in order to increase community ambulation-progressing (~5.5min max before fatigue/SOB requiring seated rest break) Waste Recycler Goal 4: Pt will increase tinetti score to >/=20/28 in order to reduce fall risk Minutes Tracking: Time In: 1231 Time Out: 1315 Minutes: 44 Shirin Bajwa PTA Date: 10/03/2022 documented in this encounterBON [employer] Phone: 1(451) 998-952804-24-2023 History of Present illness Narrative* Shirin Bajwa, FINANCIAL SERVICES TECHNICIAN - 09/15/2022 1:00 PM EDT [facility] Daily Note Patient: Piotr Kerr : 1960 CSN #: [id number] Referring Physician: Jorge Pritchett DO Date: 09/15/2022 Onset Date: 08/13/22 PT Insurance Information: [employer] Total # of Visits Approved: 12 Per [...] order to improve functional strength---met 20 seconds Waste Recycler Goals Time Frame for Waste Recycler Goals : 6 weeks Skilled Nursing Goal 1: Pt will be safe and independent with his HEP Skilled Nursing Goal 2: Pt will increase L LE strength to >/=4-/5 and R LE strength to 4/5 in order toincrease ambulation tolerance Waste Recycler Goal 3: Pt will be able to ambulate for 10 minutes with LRAD and no LOB with minimal fatigue in order to increase community ambulation Skilled Nursing Goal 4: Pt will increase tinetti score to >/20/28 in order to reduce fall risk Minutes Tracking: Time In: 1300 Time Out: 1342 Minutes: 42 Timed Code Treatment Minutes: 41 Minutes Shirin Bajwa PTA Date: 09/15/[address] [employer] Phone: 1(574) 387-554404-14-2023 History of Present illness Narrative* Chris Sauceda, PT - 09/05/2022 3:30 PM EDT [facility] Daily Note Patient: Piotr Kerr : 1960 CSN #: [id number] Referring Physician: Jorge Pritchett DO Date: 09/05/2022 Treatment Diagnosis: weakness Onset Date: 08/13/22 PT Insurance Information: [employer] Total # of Visits Approved: 12 Per [...] seconds in order to improve functional strength\ Skilled Nursing Goals Time Frame for Waste Recycler Goals : 6 weeks Skilled Nursing Goal 1: Pt will be safe and independent with his HEP Waste Recycler Goal 2: Pt will increase L LE strength to >/=4-/5 and R LE strength to 4/5 in order toincrease ambulation tolerance Waste Recycler Goal 3: Pt will be able to ambulate for 10 minutes with LRAD and no LOB with minimal fatigue in order to increase community ambulation Waste Recycler Goal 4: Pt will increase tinetti score to >/20/28 in order to reduce fall risk Minutes Tracking: Time In: 2 Time Out: 1628 Minutes: 56 Timed Code Treatment Minutes: 54 Minutes Chris Sauceda PT Date: 09/05/[address] [facility] [place] [employer] Work Phone: 1(755) 558-230604-07-2023 History of Present illness Narrative* Shirin Bajwa, FINANCIAL SERVICES TECHNICIAN - 08/29/2022 2:45 PM EDT [facility] Daily Note Patient: Piotr Kerr : 1960 CSN #: [id number] Referring Physician: Jorge Pritchett DO Date: 08/29/2022 Treatment Diagnosis: weakness Onset Date: 08/13/22 PT Insurance Information: [employer] Total # of Visits Approved: 12 Per [...] seconds in order to improve functional strength Skilled Nursing Goals Time Frame for Skilled Nursing Goals : 6 weeks Waste Recycler Goal 1: Pt will be safe and independent with his HEP Skilled Nursing Goal 2: Pt will increase L LE strength to >/=4-/5 and R LE strength to 4/5 in order toincrease ambulation tolerance Waste Recycler Goal 3: Pt will be able to ambulate for 10 minutes with LRAD and no LOB with minimal fatigue in order to increase community ambulation Skilled Nursing Goal 4: Pt will increase tinetti score to >/20/28 in order to reduce fall risk Minutes Tracking: Time In: 1445 Time Out: 1528 Minutes: 43 Shirin Bajwa, FINANCIAL SERVICES TECHNICIAN Date: 08/29/[address] [employer] Phone: 1(908) 952-465204-03-2023 History of Present illness Narrative* Chris Sauceda PT - 08/25/2022 2:45 PM EDT [facility] Daily Note Patient: Piotr Kerr : 1960 CSN #: [id number] Referring Physician: Jorge Pritchett DO Date: 08/25/2022 Treatment Diagnosis: weakness Onset Date: 08/13/22 PT Insurance Information: [employer] Total # of Visits Approved: 12 Per [...] seconds in order to improve functional strength Skilled Nursing Goals Time Frame for Skilled Nursing Goals : 6 weeks Waste Recycler Goal 1: Pt will be safe and independent with his HEP Waste Recycler Goal 2: Pt will increase L LE strength to >/=4-/5 and R LE strength to 4/5 in order toincrease ambulation tolerance Skilled Nursing Goal 3: Pt will be able to ambulate for 10 minutes with LRAD and no LOB with minimal fatigue in order to increase community ambulation Skilled Nursing Goal 4: Pt will increase tinetti score to >/20/28 in order to reduce fall risk Minutes Tracking: Time In: 1443 Time Out: 1541 Minutes: 58 Timed Code Treatment Minutes: 55 Minutes Chris Sauceda PT Date: 08/25/2022 documented in this encounterBON [facility] Phone: 1(725) 392-973603-29-2023 History of Present illness Narrative* Kelly Amaya PT - 08/20/2022 1:00 PM EDT [facility] Evaluation Date: 08/20/2022 Patient: Piotr Conleybailey : 1960 CSN #: [id number] Referring Physician: Jorge Pritchett DO Medical Diagnosis: M54.50 low back pain, R29.898 weakness Treatment Diagnosis: weakness Onset Date: 08/13/22 PT Insurance Information: [employer] Total # of Visits Approved: 12 Total [...] seconds in order to improve functional strength Skilled Nursing Goals Time Frame for Skilled Nursing Goals : 6 weeks Skilled Nursing Goal 1: Pt will be safe and independent with his HEP Waste Recycler Goal 2: Pt will increase L LE strength to >/=4-/5 and R LE strength to 4/5 in order toincrease ambulation tolerance Skilled Nursing Goal 3: Pt will be able to ambulate for 10 minutes with LRAD and no LOB with minimal fatigue in order to increase community ambulation Skilled Nursing Goal 4: Pt will increase tinetti score to >/20/28 in order to reduce fall risk Patient Goals : to get my strength back Minutes Tracking: Time In: 1252 Time Out: 1350 Minutes: 58 Timed Code Treatment Minutes: 56 Minutes Kelly Amaya PT, DPT 08/20/2022 documented in this encounterBON [employer] Work Phone: 1(609) 330-718103-20-2023 Evaluation note* Encounter Date Diagnosis Assessment Notes [...] use, the patient reduces the risk for MD, CVA, HTN, cardiac dysrhythmias and sudden cardiac deaths.The patient is also aware of the association between CHRIS and morning headaches, daytime somnolence, fatigue and obesity, which also has been improved with continued use.The patient is compliant with treatment, wearing the equipment every night for greater than 4 hours.The patient is instructed to continue use of the CPAP for CHRIS treatment. 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 Diaz catheter care reviewed and demonstrated to patient. Patient and verbalize understanding and denies any questions at this time. Kenya Irizarry EXTRACTION SUPERVISOR notified of patients BP. Patient states that he normally takes his BP medications in the evening at dinner time. Per Kenya Irizarry EXTRACTION SUPERVISOR patient is to take BP medication when [...] and cardiac clearance. documented in this encounterBON [facility] [employer] Phone: 1(231) 557-655802-21-2023 Hospital Discharge instructions* Discharge Instructions* Julissa Campbell [...] is called flank pain.) Call Dr. Ferrer ([phone]) if you develop: Fever over 100 degrees [...] Call Dr. Ferrer office for follow-up appointment ([phone]). documented in this [facility] [employer] Phone: 1(474) [phone] Evaluation note* Encounter Date Diagnosis Assessment Notes Treatment Notes Treatment Clinical Notes Jun, Cardiomyopathy, ischemic (ICD-10 - I25.5) NM stress: inferolateral ischemia 06/2022 [employer] Other 02-17-2023 History of Present illness Narrative* Fatmata Cecilia - 07/11/2022 10:00 AM EST Explained policies and procedure of an echocardiogram/Doppler study. documented [facility] Phone: 1(174) [phone] History of Present illness Narrative* Alie Dunn RN - 07/11/2022 9:15 AM EST Instructed on objectives and procedure of lexiscan/cardiolite stress test. documented in this [facility] Phone: [phone]) [phone] Evaluation note* Encounter Date Diagnosis Assessment Notes Treatment Notes Treatment Clinical Notes Jun, Preop exam for internal medicine (ICD-10 - Z01.818) Reviewed medication w/ patient. He will be discussing stop date for his Aspirin and Plavix with his Mail Sorting Supervisor. Jun, ASHD (arteriosclerotic heart disease) (ICD-10 - I25.10) Stable w/o activity limiting symptoms. He is aware of the increased risk for MD when off DAPT. Jun, Primary hypertension (ICD-10 [...] thrombosis with d/c DAPT. Jun, Other Stable [employer] Other [id number] History of Present illness Narrative* Huang Urbina, PT - 05/22/2022 1:15 PM EST [facility] Daily Note Patient: Piotr Kerr : 1960 CSN #: [id number] Referring Physician: Jorge Pritchett DO Date: 05/22/2022 Treatment Diagnosis: Difficulty walking PT Insurance Information: [employer] [place] Total # of Visits Approved: 45 Per [...] no LOB to improve functional strength. -MET Skilled Nursing Goals Time Frame for Skilled Nursing Goals : 6 weeks Skilled Nursing Goal 1: Patient to be independent and compliant with HEP.--met Skilled Nursing Goal 2: Patient to have improved L LE strength >/=4-/5 and R LE >/=4/5 grossly for improved ease with transfers and ambulation. Skilled Nursing Goal 3: Patient to be able to stand/walk >/=5 mins with LRAD and no LOB or fatigue with SpO2 >/=90% for improved functional endurance.-met Waste Recycler Goal 4: Patient to have improved Tinetti balance score >/=19/28 to decrease fall risk. Waste Recycler Goal 5: Updated: Pt to stand/ambulate >/=10minutes with LRAD and no LOB or fatigue to improve endurance. Minutes Tracking: Time In: 1321 Time Out: 1414 Minutes: 53 Timed Code Treatment Minutes: 41 Minutes Huang Urbina PT, DPT Date: 05/22/2022 documented in this [facility] Work Phone: 1(842) 435-374011-07-2022 History of Present illness Narrative* Chris Sauceda, GRACY - 03/31/2022 4:30 PM EST [facility] Daily Note Patient: Piotr Kerr : 1960 CSN #: [id number] Referring Physician: Jorge Pritchett DO Date: 03/31/2022 Treatment Diagnosis: Difficulty walking PT Insurance Information: [employer] [place] Total # of Visits Approved: 45 Per [...] sink ex 10x Exercise 7: SC amb [id number] Exercise 9: Heel/toe raises + lateral step [...] no LOB to improve functional strength. -MET Skilled Nursing Goals Time Frame for Waste Recycler Goals : 6 weeks Waste Recycler Goal 1: Patient to be independent and compliant with HEP.--met Skilled Nursing Goal 2: Patient to have improved L LE strength >/=4-/5 and R LE >/=4/5 grossly for improved ease with transfers and ambulation. Skilled Nursing Goal 3: Patient to be able to stand/walk >/=5 mins with LRAD and no LOB or fatigue with SpO2 >/=90% for improved functional endurance.-met Waste Recycler Goal 4: Patient to have improved Tinetti balance score >/=19/28 to decrease fall risk. Skilled Nursing Goal 5: Updated: Pt to stand/ambulate >/=10minutes with LRAD and no LOB or fatigue to improve endurance. Minutes Tracking: Time In: 1632 Time Out: 1722 Minutes: 50 Timed Code Treatment Minutes: 48 Minutes Chris Sauceda PT Date: 03/31/2022 documented in this encounterBON [facility] [employer] Phone: [phone] History of Present illness Narrative* Shirin Bajwa PTA - 03/26/2022 2:30 PM EDT [facility] Daily Note Patient: Piotr Kerr : 1960 CSN #: [id number] Referring Physician: Jorge Pritchett DO Date: 03/26/2022 Diagnosis: Weakness of both LE's, R29.898 Treatment Diagnosis: Difficulty walking PT Insurance Information: [employer] [place] Total # of Visits Approved: 45 Per [...] with 8# ball Exercise 7: SC amb [id number] Exercise 10: ignacio step overs (small) forward [...] no LOB to improve functional strength. -MET Waste Recycler Goals Time Frame for Waste Recycler Goals : 6 weeks Waste Recycler Goal 1: Patient to be independent and compliant with HEP.--met Skilled Nursing Goal 2: Patient to have improved L LE strength >/=4-/5 and R LE >/=4/5 grossly for improved ease with transfers and ambulation. Waste Recycler Goal 3: Patient to be able to stand/walk >/=5 mins with LRAD and no LOB or fatigue with SpO2 >/=90% for improved functional endurance.-met Waste Recycler Goal 4: Patient to have improved Tinetti balance score >/=19/28 to decrease fall risk. Waste Recycler Goal 5: Updated: Pt to stand/ambulate >/=10minutes with LRAD and no LOB or fatigue to improve endurance. Minutes Tracking: Time In: 1433 Time Out: 1511 Minutes: 38 Shirin Bajwa PTA Date: 03/26/[address] [facility] [employer] Phone: [phone] History of Present illness Narrative* Huang Urbina, PT - 03/24/2022 3:00 PM EDT [facility] Daily Note Patient: Piotr Kerr : 1960 CSN #: [id number] Referring Physician: Jorge Pritchett DO Date: 03/24/2022 Treatment Diagnosis: Difficulty walking PT Insurance Information: [employer] [place] Total # of Visits Approved: 36 Per [...] resistance to continue to work toward his senior care strength goals. He reported fatigue following his [...] no LOB to improve functional strength. -MET Waste Recycler Goals Time Frame for Skilled Nursing Goals : 6 weeks Skilled Nursing Goal 1: Patient to be independent and compliant with HEP.--met Waste Recycler Goal 2: Patient to have improved L LE strength >/=4-/5 and R LE >/=4/5 grossly for improved ease with transfers and ambulation. Skilled Nursing Goal 3: Patient to be able to stand/walk >/=5 mins with LRAD and no LOB or fatigue with SpO2 >/=90% for improved functional endurance.-progressing Waste Recycler Goal 4: Patient to have improved Tinetti balance score >/=19/28 to decrease fall risk. Minutes Tracking: Time In: 1505 Time Out: 1550 Minutes: 45 Timed Code Treatment Minutes: 43 Minutes Huang Urbina PT, DPT Date: 03/24/2022 documented in this encounterBON [facility]ENTERExp[facility] [place] [employer] Work Phone: [phone]) [phone] History of Present illness Narrative* Chris Sauceda, PT - 03/18/2022 1:45 PM EDT [facility] Daily Note Patient: Piotr Kerr : 1960 CSN #: [id number] Referring Physician: Jroge Pritchett DO Date: 03/18/2022 Treatment Diagnosis: Difficulty [...] no LOB to improve functional strength. -MET Waste Recycler Goals Time Frame for Waste Recycler Goals : 6 weeks Skilled Nursing Goal 1: Patient to be independent and compliant with HEP.--met Skilled Nursing Goal 2: Patient to have improved L LE strength >/=4-/5 and R LE >/=4/5 grossly for improved ease with transfers and ambulation. Waste Recycler Goal 3: Patient to be able to stand/walk >/=5 mins with LRAD and no LOB or fatigue with SpO2 >/=90% for improved functional endurance.-progressing Skilled Nursing Goal 4: Patient to have improved Tinetti balance score >/=/28 to decrease fall risk. Minutes Tracking: Time In: 1358 Time Out: 1457 Minutes: 59 Timed Code Treatment Minutes: 55 Minutes Chris Sauceda PT Date: 03/18/[address] [facility] [place] [employer] Work Phone: [phone] History of Present illness Narrative* Yumiko Montes, ALEXANDRA - 03/14/2022 12:45 PM EDT [facility] Daily Note Patient: Piotr Kerr : 1960 CSN #: [id number] Referring Physician: Jorge Pritchett DO Date: 03/14/2022 Treatment Diagnosis: Difficulty walking PT Insurance Information: [employer] Total # of Visits Approved: 36 Per [...] no LOB to improve functional strength. -MET Waste Recycler Goals Time Frame for Skilled Nursing Goals : 6 weeks Waste Recycler Goal 1: Patient to be independent and compliant with HEP.--met Waste Recycler Goal 2: Patient to have improved L LE strength >/=4-/5 and R LE >/=4/5 grossly for improved ease with transfers and ambulation. Skilled Nursing Goal 3: Patient to be able to stand/walk >/=5 mins with LRAD and no LOB or fatigue with SpO2 >/=90% for improved functional endurance.-progressing Skilled Nursing Goal 4: Patient to have improved Tinetti balance score >/=19/28 to decrease fall risk. Minutes Tracking: Time In: 1245 Time Out: 1327 Minutes: 42 Yumiko Montes, FINANCIAL SERVICES TECHNICIAN Date: 03/14/[address] [facility] [place] [employer] Work Phone: 1(556) 485-807010-13-2022 History of Present illness Narrative* Rashel Cárdenas, PT - 03/06/2022 12:30 PM EDT [facility] Daily Note Patient: Piotr Kerr : 1960 CSN #: [id number] Referring Physician: Jorge Pritchett DO Date: 03/06/2022 Diagnosis: Weakness of both LE's, R29.898 Treatment Diagnosis: Difficulty walking PT Insurance Information: [employer] Total # of Visits Approved: 36 Per [...] no LOB to improve functional strength. -MET Waste Recycler Goals Time Frame for Skilled Nursing Goals : 6 weeks Skilled Nursing Goal 1: Patient to be independent and compliant with HEP.--met Waste Recycler Goal 2: Patient to have improved L LE strength >/=4-/5 and R LE >/=4/5 grossly for improved ease with transfers and ambulation. Skilled Nursing Goal 3: Patient to be able to stand/walk >/=5 mins with LRAD and no LOB or fatigue with SpO2 >/=90% for improved functional endurance.-progressing Skilled Nursing Goal 4: Patient to have improved Tinetti balance score >/=19/28 to decrease fall risk. Minutes Tracking: Time In: 1228 Time Out: 1321 Minutes: 53 Timed Code Treatment Minutes: 50 Minutes Rashel Cárdenas PT, DPT Date: 03/06/2022 documented in this encounterBON [employer] [facility] [place] [employer] Work Phone: 1([phone]) 418-601010-11-2022 History of Present illness Narrative* Yumiko Montes, FINANCIAL SERVICES TECHNICIAN - 03/04/2022 12:00 PM EDT [facility] Daily Note Patient: Piotr Kerr : 1960 CSN #: [id number] Referring Physician: Jorge Pritchett DO Date: 03/04/2022 Treatment Diagnosis: Difficulty walking PT Insurance Information: [employer] Total # of Visits Approved: 36 Per [...] no LOB to improve functional strength. -MET Skilled Nursing Goals Time Frame for Skilled Nursing Goals : 6 weeks Skilled Nursing Goal 1: Patient to be independent and compliant with HEP.--met Waste Recycler Goal 2: Patient to have improved L LE strength >/=4-/5 and R LE >/=4/5 grossly for improved ease with transfers and ambulation. Skilled Nursing Goal 3: Patient to be able to stand/walk >/=5 mins with LRAD and no LOB or fatigue with SpO2 >/=90% for improved functional endurance.-progressing Waste Recycler Goal 4: Patient to have improved Tinetti balance score >/=19/28 to decrease fall risk. Minutes Tracking: Time In: 1202 Time Out: 1245 Minutes: 43 Yumiko Montes PTA Date: 03/04/[address] [facility] [employer] Phone: [phone]) [phone] History of Present illness Narrative* Yumiko Montes PTA - 02/07/2022 2:15 PM EDT [facility] Daily Note Patient: Piotr Kerr : 1960 CSN #: [id number] Referring Physician: Jorge Pritchett DO Date: 02/07/2022 Treatment Diagnosis: Difficulty walking PT Insurance Information: [employer] Total # of Visits Approved: 24 Per [...] no LOB to improve functional strength. -MET Skilled Nursing Goals Time Frame for MCC goals : 6 weeks medical terminologist goal 1: Patient to be independent and compliant with HEP.--met medical terminologist goal 2: Patient to have improved L LE strength >/=4-/5 and R LE >/=4/5 grossly for improved ease with transfers and ambulation. MCC goal 3: Patient to be able to stand/walk >/=5 mins with LRAD and no LOB or fatigue with SpO2 >/=90% for improved functional endurance.-progressing MCC goal 4: Patient to have improved Tinetti balance score >/=19/28 to decrease fall risk. Minutes Tracking: Time In: 1415 Time Out: 1501 Minutes: 46 Yumiko Montes, FINANCIAL SERVICES TECHNICIAN Date: 02/07/2022 documented in this encounterBON [facility] Phone: [phone]) [phone] History of Present illness Narrative* Rashel Cárdenas, PT - 01/28/2022 2:15 PM EDT [facility] Daily Note Patient: Piotr Kerr : 1960 CSN #: [id number] Referring Physician: Jorge Pritchett DO Date: 01/28/2022 Diagnosis: Weakness of both LE's, R29.898 Treatment Diagnosis: Difficulty walking PT Insurance Information: [employer] Total # of Visits Approved: 24 Per [...] no LOB to improve functional strength. -MET Skilled Nursing Goals Time Frame for MCC goals : 6 weeks medical terminologist goal 1: Patient to be independent and compliant with HEP.--met MCC goal 2: Patient to have improved L LE strength >/=4-/5 and R LE >/=4/5 grossly for improved ease with transfers and ambulation. medical terminologist goal 3: Patient to be able to stand/walk >/=5 mins with LRAD and no LOB or fatigue with SpO2 >/=90% for improved functional endurance.-progressing medical terminologist goal 4: Patient to have improved Tinetti balance score >/=19/28 to decrease fall risk. Minutes Tracking: Time In: 1414 Time Out: 1500 Minutes: 46 Timed Code Treatment Minutes: 45 Minutes Rashel Cárdenas PT, DPT Date: 01/28/[address] [address] [facility] [employer] Phone: 1([phone]) [phone] History of Present illness Narrative* Rashel Cárdenas PT - 01/24/2022 11:45 AM EDT [facility] Daily Note Patient: Piotr Kerr : 1960 CSN #: [id number] Referring Physician: Jorge Pritchett DO Date: 01/24/2022 Diagnosis: Weakness of both LE's, R29.898 Treatment Diagnosis: Difficulty walking PT Insurance Information: [employer] Total # of Visits Approved: 24 Per [...] no LOB to improve functional strength. -MET Skilled Nursing Goals Time Frame for medical terminologist goals : 6 weeks medical terminologist goal 1: Patient to be independent and compliant with HEP.--met MCC goal 2: Patient to have improved L LE strength >/=4-/5 and R LE >/=4/5 grossly for improved ease with transfers and ambulation. MCC goal 3: Patient to be able to stand/walk >/=5 mins with LRAD and no LOB or fatigue with SpO2 >/=90% for improved functional endurance.-progressing medical terminologist goal 4: Patient to have improved Tinetti balance score >/=19/28 to decrease fall risk. Minutes Tracking: Time In: 1146 Time Out: 1234 Minutes: 48 Timed Code Treatment Minutes: 47 Minutes Rashel Cárdeans PT, DPT Date: 01/24/[address] [facility] [employer] Phone: [phone] History of Present illness Narrative* Rashel Cárdenas PT - 01/16/2022 2:30 PM EDT [facility] Daily Note Patient: Piotr Kerr : 1960 CSN #: [id number] Referring Physician: Jorge Pritchett DO Date: 01/16/2022 Diagnosis: Weakness of both LE's, R29.898 Treatment Diagnosis: Difficulty walking PT Insurance Information: [employer] Total # of Visits Approved: 24 Per [...] no LOB to improve functional strength. -MET Skilled Nursing Goals Time Frame for medical terminologist goals : 6 weeks MCC goal 1: Patient to be independent and compliant with HEP.--met MCC goal 2: Patient to have improved L LE strength >/=4-/5 and R LE >/=4/5 grossly for improved ease with transfers and ambulation. MCC goal 3: Patient to be able to stand/walk >/=5 mins with LRAD and no LOB or fatigue with SpO2 >/=90% for improved functional endurance.-progressing MCC goal 4: Patient to have improved Tinetti balance score >/=19/28 to decrease fall risk. Minutes Tracking: Time In: 1430 Time Out: 1512 Minutes: 42 Timed Code Treatment Minutes: 41 Minutes Rashel Cárdenas, PT, DPT Date: 01/16/2022 documented in this encounterBON [employer] Work Phone: [phone]) [phone] History of Present illness Narrative* Doc Agrawal, FINANCIAL SERVICES TECHNICIAN - 01/08/2022 1:45 PM EDT [facility] Daily Note Patient: Piotr Kerr : 1960 CSN #: [id number] Referring Physician: Jorge Pritchett DO Date: 01/08/2022 [...] no LOB to improve functional strength. -MET Waste Recycler Goals Time Frame for medical terminologist goals : 6 weeks medical terminologist goal 1: Patient to be independent and compliant with HEP. MCC goal 2: Patient to have improved L LE strength >/=4-/5 and R LE >/=4/5 grossly for improved ease with transfers and ambulation. medical terminologist goal 3: Patient to be able to stand/walk >/=5 mins with LRAD and no LOB or fatigue with SpO2 >/=90% for improved functional endurance. MCC goal 4: Patient to have improved Tinetti balance score >/=19/28 to decrease fall risk. Minutes Tracking: Time In: 1346 Time Out: 1430 Minutes: 44 Timed Code Treatment Minutes: 43 Minutes Doc Agrawal PTA Date: 01/08/[address] [facility] [employer] Phone: 1(993) 565-365308-12-2022 History of Present illness Narrative* Doc Agrawal PTA - 01/03/2022 2:45 PM EDT [facility] Daily Note Patient: Piotr Kerr : 1960 CSN #: [id number] Referring Physician: Jorge Pritchett DO Date: 01/03/2022 [...] no LOB to improve functional strength. -MET Waste Recycler Goals Time Frame for MCC goals : 6 weeks medical terminologist goal 1: Patient to be independent and compliant with HEP. medical terminologist goal 2: Patient to have improved L LE strength >/=4-/5 and R LE >/=4/5 grossly for improved ease with transfers and ambulation. MCC goal 3: Patient to be able to stand/walk >/=5 mins with LRAD and no LOB or fatigue with SpO2 >/=90% for improved functional endurance. MCC goal 4: Patient to have improved Tinetti balance score >/=19/28 to decrease fall risk. Minutes Tracking: Time In: 1446 Time Out: 1540 Minutes: 54 Timed Code Treatment Minutes: 49 Minutes Doc Agrawal FINANCIAL SERVICES TECHNICIAN Date: 01/03/2022 documented in this encounterB[facility] Work Phone: 1([phone]) 251-564208-10-2022 History of Present illness Narrative* Doc Agrawal PTA - 01/01/2022 4:15 PM EDT [facility] Daily Note Patient: Piotr Kerr : 1960 [facility] #: [id number] Referring Physician: Jorge Pritchett DO Date: 01/01/2022 [...] and no LOB to improve functional strength. Skilled Nursing Goals Time Frame for MCC goals : 6 weeks medical terminologist goal 1: Patient to be independent and compliant with HEP. MCC goal 2: Patient to have improved L LE strength >/=4-/5 and R LE >/=4/5 grossly for improved ease with transfers and ambulation. MCC goal 3: Patient to be able to stand/walk >/=5 mins with LRAD and no LOB or fatigue with SpO2 >/=90% for improved functional endurance. MCC goal 4: Patient to have improved Tinetti balance score >/=19/28 to decrease fall risk. Minutes Tracking: Time In: 1616 Time Out: 1703 Minutes: 47 Timed Code Treatment Minutes: 45 Minutes Doc AgrawalALEXANDRA Date: 01/01/2022 documented in this encounterB[facility] Work Phone: 1([phone]) 345-436208-05-2022 History of Present illness Narrative* Rashel Cárdenas, PT - 12/27/2021 2:00 PM EDT [facility] Daily Note Patient: Piotr Kerr : 1960 CSN #: [id number] Referring Physician: Jorge Pritchett DO Date: 12/27/2021 Diagnosis: Weakness of both LE's, R29.898 Treatment Diagnosis: Difficulty walking PT Insurance Information: [employer] Total # of Visits Approved: 12 Per [...] and no LOB to improve functional strength. Skilled Nursing Goals Time Frame for MCC goals : 6 weeks medical terminologist goal 1: Patient to be independent and compliant with HEP. MCC goal 2: Patient to have improved L LE strength >/=4-/5 and R LE >/=4/5 grossly for improved ease with transfers and ambulation. medical terminologist goal 3: Patient to be able to stand/walk >/=5 mins with LRAD and no LOB or fatigue with SpO2 >/=90% for improved functional endurance. medical terminologist goal 4: Patient to have improved Tinetti balance score >/=19/28 to decrease fall risk. Minutes Tracking: Time In: 1355 Time Out: 1444 Minutes: 49 Timed Code Treatment Minutes: 47 Minutes Rashel Cárdenas PT, DPT Date: 12/27/[address] [facility] [place] [employer] Work Phone: 1([phone]) [phone] History of Present illness Narrative* Rashel Cárdenas PT - 12/17/2021 10:00 AM EDT [facility] Evaluation Date: 12/17/2021 Patient: Piotr Kerr : 1960 CSN #: [id number] Referring Physician: Jorge Pritchett DO Medical Diagnosis: Weakness of both LE's, R29.898 Treatment Diagnosis: Difficulty walking PT Insurance Information: Medical [employer] Total # of Visits to Date: 1 [...] and no LOB to improve functional strength. Waste Recycler Goals Time Frame for MCC goals : 6 weeks MCC goal 1: Patient to be independent and compliant with HEP. medical terminologist goal 2: Patient to have improved L LE strength >/=4-/5 and R LE >/=4/5 grossly for improved ease with transfers and ambulation. medical terminologist goal 3: Patient to be able to stand/walk >/=5 mins with LRAD and no LOB or fatigue with SpO2 >/=90% for improved functional endurance. medical terminologist goal 4: Patient to have improved Tinetti balance score >/=19/28 to decrease fall risk. Minutes Tracking: Time In: 1029 Time Out: 1101 Minutes: 32 Timed Code Treatment Minutes: 31 Minutes Rashel Cárdenas PT, DPT 12/17/2021 documented in [facility] Phone: 1([phone]) 547-763106-27-2022 History of Present illness Narrative* Josefa Ruvalcaba [...] Health, food label guide, documented in this encounterBAN[facility] Phone: 1([phone]) 305-528205-23-2022 History of Present illness Narrative* Tamiko Rey - 10/14/2021 11:00 AM EDT Cardiopulmonary Rehab Medical Nutrition Therapy Food Diary Evaluation Patient Name: Piotr Kerr Registered Dietitian: Tamiko Le, Bag Turner Date: 10/14/2021 Dear Piotr, Thank you for [...] can come from things like your strudel, maori toast sticks, andPower aid. Men only need [...] Recommendations are based on guidelines from the [place] [employer], [place] [employer] and current literature. Feel free to call with questions or concerns [phone] or [phone] Tamiko Le Bag Turner documented in this encounterBON [facility] Phone: 1(330) [phone] History of Present illness Narrative* Sally Armijo [...] dizziness at <5 METs or during recovery MD or cardiac surgery complicated by cardiogenic shock, [...] resting or exercise induced complex dysrhythmias Uncomplicate MD, CABG, angioplasty, atherectomy, or stent Normal hemodynamic [...] sets may be added. Education: [x] Equipment Lynn [] Understanding BP [x] S/S to report [...] PHQ9 score: Intervention: [] Psych Consult/social media campaign manager [] Uses stress management skills [] [...] of body weight over the program, utilizing generator switchboard operator recommendations, moderating nutrional intake, and performing regular aerobic and strength training exercises as prescribed, as evidenced by pre- and post- program nutriton survey and routine rounding with patient to ascertain progression toward goal per patient's self report, food diary, and Ovam-lthf-Cozeg screening survey. Strive for a lower daily [...] Rehabilitation Physician Order Form Piotrarin Kerr 1960 [id number] 09/27/2021 [x] Phase 2 ECG Monitored Cardiac Rehabilitation [] MD [x] PTCA with stents [] CABG [] [...] Initial History and Assessment Piotr Kerr 1960 [id number] 09/27/2021 Primary Diagnosis: PTCA w/SYLVIA on 06/03/2021 and 09/09/2021 Living Will: [] Yes [x] No On File: [] Yes [] No [x] N/A Durable Power of Builder'S Labourer: [] Yes [x] No Medical History Past Medical History: Diagnosis Date Cerebrovascular accident (CVA) (HCC) Chronic pain COVID-19 06/05/2021 Essential hypertension H/O heart artery stent medical terminologist (current) use of insulin (HCC) Type 2 [...] usually run? 110-160 Have you seen a generator switchboard operator or nurses educator [] Yes [x] No HbA1c on [...] No significant change was found VR-66 bpm TN-144 ms QRS-80 ms QT/QTc-382/400 ms Cardiac Cath [...] dizziness at <5 METs or during recovery MD or cardiac surgery complicated by cardiogenic shock, [...] resting or exercise induced complex dysrhythmias Uncomplicate MD, CABG, angioplasty, atherectomy, or stent Normal hemodynamic [...] the prescribed target heart rate range, a Dnoald rating of perceived exertion between 11 and [...] of body weight over the program, utilizing generator switchboard operator recommendations, moderating nutrional intake, and performing regular aerobic and strength training exercises as prescribed, as evidenced by pre- and post- program nutriton survey and routine rounding with patient to ascertain progression toward goal per patient's self report, food diary, and Higt-fivz-Izbzg screening survey. Strive for a lower daily [...] routine rounding with patient. [facility] Phone: 1([phone]) 985-389401-08-2022 History of Present illness Narrative* Kae Goodrich RN - 06/01/2021 2:25 PM EST Patient discharged to home with at this time. Transports via w/c. * Kae Goodrich RN - 06/01/2021 2:08 PM EST Discharge instructions reviewed with patient and . Both are aware of all upcoming appointments and need for follow up with urology and Dr. Kan after stenting completed on Thursday at [facility]. Education given regarding diaz and diaz care. Supplies provided. Patient and voice understandingof all. Opportunity given for questions to be asked and answered. Patient and voice understanding of all. * Kae Goodrich RN - 06/01/2021 1:17 PM EST Manager Marketing Communications attempts to contact patient's Mary for ETA, message left on voicemail. * Rashel Cárdenas PT - 06/01/2021 10:27 AM EST Physical Therapy Facility/Department: [facility] Daily Treatment Note NAME: [...] pain, Essential hypertension, H/O heart artery stent, medical terminologist (current) use of insulin (HCC), and Type [...] muscle spasms, which is chronic for him. Manager Marketing Communications informed patient that it was to soon [...] 05/31/2021 2:18 PM EST Physical Therapy Facility/Department: [facility] Daily Treatment Note NAME: [...] medical history of Cerebrovascular accident (CVA) ([facility]), Chronic pain, Essential hypertension, H/O heart artery stent, MCC (current) use of insulin (HCC), and Type [...] stents placed in 2013 or 2015 in [place] at [facility]. He also has a history of hypertension and high cholesterol over the past 5-7 years. He also notes he is a diabetic and uses insulin 3 times per day. He had a stroke in June 2020, he was seen and evaluated at [facility]. Since his storke he has had [...] [facility]. He is awaiting [...] outpatient PCI on Thursday at noon at [facility]. I told her he is not [...] History: Diagnosis Date Cerebrovascular accident (CVA) ([facility]) Chronic pain Essential hypertension H/O heart artery stent MCC (current) use of insulin ([facility]) Type 2 diabetes mellitus without complication ([facility]) CURRENT ALLERGIES: Patient has no known allergies. REVIEW OF SYSTEMS: 14 systems were reviewed. Pertinent positives and negatives as above, all else negative. Past Surgical History: Procedure Laterality Date CARDIAC CATHETERIZATION 05/29/2021 Dr Mars/[facility]/right radial-Severe three vessel coronary artery disease involving [...] NatRelief 11 Cholecalciferol (VITAMIN D3) 1.25 MG (33766 UT) CAPS Take 1 capsule by mouth [...] ventricular end diastolic pressure. Awaiting transfer to [facility] for stents, however there are [...] showed mild osteoarthritis Chronic systolic heart failure: [place] [employer] Class: IV (Severe limitations, symptoms even at rest) Beta Ajyde: Continue carvedilol 3.125 mg twice daily as [...] with Cassie Morejon CNP working with the [facility] who was also in agreement with the plan. We will have him follow up with us as an outpatient in 2-3 weeks. Sincerely, Beata Harris PA-C [facility] Dust Control Engineer [address] [place] [address] , I believe that the risk of significant morbidity and mortality related to the patient's current medical conditions are: high. May 31, 2021 * Kae Goodrich RN - 05/31/2021 7:58 AM EST Patient's Mary updated via telephone. * Lamont Vasquez MD - 05/31/2021 7:39 AM EST Progress Note Lamont Vasquez MD OBJECTIVE: Patient seen for f/u of 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 [...] severe stenosis, he is awaiting transfer to [facility]. 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 05/31/2021 7:39 AM * Ivy Yin RN - 05/31/2021 12:56 AM EST Pt resting comfortably upon arrive. Pt is on room air. Vitals and second assessment done at this time. * Hannah Whitfield RCP - 05/30/2021 11:54 PM EST Pt requesting to take bipap off due to unable to tolerate. Manager Marketing Communications took bipap mask off and left pt on room air. RN made aware. Will continue to monitor. * Ivy Yin RN - 05/30/2021 9:36 PM EST Manager Marketing Communications at bedside for shift assessment. Patient sitting [...] given to patients Mary via telephone. * Kea Goodrich RN - 05/30/2021 3:37 PM EST Patient resting with eyes closed, no s/s discomfort or distress. Call light in reach. * Rashel Cárdenas PT - 05/30/2021 3:33 PM EST [facility] Inpatient/Observation/Outpatient Rehabilitation Date: 05/30/2021 Patient Name: [...] 05/30/2021 2:40 PM EST Occupational Therapy Facility/Department: [facility] Daily Treatment Note NAME: [...] medical history of Cerebrovascular accident (CVA) ([facility]), Chronic pain, Essential hypertension, H/O heart artery stent, medical terminologist (current) use of insulin ([facility]), and Type 2 diabetes mellitus without complication ([facility]). has a past surgical history that includes [...] stents placed in 2013 or 2015 in [place] at [facility]. He also has a history of hypertension and high cholesterol over the past 5-7 years. He also notes he is a diabetic and uses insulin 3 times per day. He had a stroke in June 2020, he was seen and evaluated at [facility]. Since his storke he has had [...] is currently waiting to be transferred [facility] cardiac cath yesterday. He is awaiting [...] History: Diagnosis Date Cerebrovascular accident (CVA) ([facility]) Chronic pain Essential hypertension H/O heart artery stent MCC (current) use of insulin ([facility]) Type 2 diabetes mellitus without complication ([facility]) CURRENT ALLERGIES: Patient has no known allergies. REVIEW OF SYSTEMS: 14 systems were reviewed. Pertinent positives and negatives as above, all else negative. Past Surgical History: Procedure Laterality Date CARDIAC CATHETERIZATION 05/29/2021 Dr Mars/[facility]/right radial-Severe three vessel coronary artery disease involving [...] NatRelief 11 Cholecalciferol (VITAMIN D3) 1.25 MG (64553 UT) CAPS Take 1 capsule by mouth [...] ventricular end diastolic pressure. Awaiting transfer to [facility] for stents Antiplatelet Agent: Continue [...] to be done. Chronic systolic heart failure: [place] [employer] Class: IV (Severe limitations, symptoms [...] and follow up Sincerely, Beata Harris PA-C [facility] Dust Control Engineer [address] [place] [address] , I believe that the risk of [...] by Nathalie RAINES. Sincerely, Alma Kan MD, .A.C.[facility] Dust Control Engineer [address] [place] [address] , * Radha A Charles, FINANCIAL SERVICES TECHNICIAN - 05/30/2021 8:54 AM EST Physical Therapy Facility/Department: [facility] Daily Treatment Note NAME: [...] pain, Essential hypertension, H/O heart artery stent, medical terminologist (current) use of insulin (HCC), and Type [...] Time Out 0854 Minutes 24 Radha Soto, FINANCIAL SERVICES TECHNICIAN * Lamont Vasquez MD - 05/30/2021 7:31 AM EST Progress Note Lamont Vasquez MD OBJECTIVE: Patient seen for f/u of 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 [...] LIST: Principal Problem: 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 * hypoxia- oxygen,resume lasix 40 mg daily Nutrition status: Well developed, well nourished with no malnutrition DVT prophylaxis: Lovenox High risk medications: none Disposition: Discharge plan is transfer to [facility] Lamont Vasquez MD , M.D. 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 * Nutrition status: Well developed, well nourished with no malnutrition DVT prophylaxis: Lovenox High risk medications: none Disposition: Discharge plan is transfer to [facility] Lamont Vasquez MD , M.D. 05/29/2021 3:34 PM * Rashel Cárdenas, PT - 05/29/2021 2:25 PM EST Physical Therapy Facility/Department: [facility] Daily Treatment Note NAME: Piotr Kerr : 1960 Date of Service: 05/29/2021 Discharge Recommendations: Continue to assess pending progress Assessment Treatment Diagnosis: general weakness, unsteady gait Prognosis: Good Activity Tolerance Activity Tolerance: Patient Tolerated treatment well Patient Diagnosis(es): There were no encounter diagnoses. has a past medical history of Cerebrovascular accident (CVA) ([facility]), Chronic pain, Essential hypertension, H/O heart artery stent, medical terminologist (current) use of insulin (HCC), and Type [...] 05/29/2021 12:03 PM EST Occupational Therapy Facility/Department: [facility] Daily Treatment Note NAME: [...] pain, Essential hypertension, H/O heart artery stent, MCC (current) use of insulin (HCC), and Type [...] 10:15 AM EST Pt. Arrived back to [facility] via wheelchair. Pt. Alert and oriented and x4. Pressure dressing clean dry and intact on right wrist with good cap refill to fingers. Pt. Denies any needs at this time. Assessment completed. Vitals obtained. Will continue to monitor. * Myrna Mayen RN - 05/29/2021 9:45 AM EST Called [facility] to initiate transfer to [facility]. Patient is referred to CT Surgeon for PCI per Dr. Mars. * Kena Rose RN - 05/29/2021 9:14 AM EST Vital signs stable. Dressing to access site clean and dry. Resting quietly with eyes closed, respirations easy. Waiting on response from interventionalist. 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 Resting in bed comfortably, assessment completed. Vitals obtained. Pt. Denies any pain at this time. Manager Marketing Communications educated patient on going down to rags laborer this am. Manager Marketing Communications called and updated per patient request. Call [...] No discharge needs at this time Contact: [phone] * JEAN Hutton/Choco - 05/28/2021 12:12 PM EST Occupational Therapy Occupational Therapy Initial Assessment Date: 05/28/2021 Patient Name: Piotr Kerr : 1960 Date of Service: 05/28/2021 Discharge Recommendations: Continue to assess pending progress Assessment Performance deficits / Impairments: Decreased functional mobility ;Decreased ADL status;Decreased strength;Decreased balance;Decreased endurance Assessment: 60 y/o M [facility]. Patient presents with generalized weakness, [...] medical history of Cerebrovascular accident (CVA) ([facility]), Chronic pain, Essential hypertension, H/O heart artery stent, medical terminologist (current) use of insulin ([facility]), and Type 2 diabetes mellitus without complication ([facility]). has no past surgical history on file. [...] 05/28/2021 12:04 PM EST Physical Therapy Facility/Department: [facility] Initial Assessment NAME: Piotr [...] medical history of Cerebrovascular accident (CVA) ([facility]), Chronic pain, Essential hypertension, H/O heart artery stent, MCC (current) use of insulin (HCC), and Type [...] care. Would like options for home care, social science instructor notified. * Hilda Retana - 05/28/2021 10:44 AM EST Echocardiogram/Doppler done at bedside. Instructed on policies and procedure. * ELOINA Dunaway - 05/28/2021 10:20 AM EST Discussed discharge plans with the patient. Patient is a 60 year old male here with Coronary arterydisease involving [place] heart with angina pectoris and documented spasm [...] with medication costs. Patient served in the [employer]. The discharge is home with . He may need home health. He does not have advance directives. DEVELOPMENT EXPERT to monitor and assist with any needs as they arise. Will follow up with the regarding any discharge needs. 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 Vasquez about patient complaining [...] noted. Call light given. documented [facility] this [facility] Phone: [phone]) 873-491001-08-2022 Hospital course Narrative* Cassie Morejon, PRESIDENT AND CMO - ENVIRONMENTAL EDUCATOR - 06/01/2021 8:43 AM EST Images from the original note were not included. Discharge Summary-addendum Piotr Kerr : 1960 Admit date: 05/27/2021 Discharge date: 06/01/2021 Admitting Physician: Lamont Vasquez MD Discharge Diagnoses: Principal Problem: 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 [...] with doppler with color Result Date: 05/28/2021 [facility] Transthoracic Echocardiography Report (TTE) Patient Name LAURA Date of Study 05/28/2021 PIOTR A Date of 1960 Gender Male Age 60 year(s) Race Room Number 0333 Height: 72 inch, 182.88 cm Corporate ID [id number] Weight: 231 pounds, 104.8 kg # Patient Acct [id number] BSA: 2.26 m^2 BMI: 31.33 # kg/m^2 MR # [id number] Hospital Mortician Hilda Arango Interpreting Physician Alma Kan Fellow Referring Nurse Cassie Morejon, ENVIRONMENTAL EDUCATOR Practitioner Interpreting Referring Physician Fellow Type of Study TTE procedure:2D Echocardiogram, M-Mode, Doppler, ColorDoppler. Procedure Date Date: 05/28/2021 Start: 10:54 AM Study Location: [facility] Indic ations:Hypertension. History / Tech. 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 Read thedirections carefully, and ask your doctor or other care provider to review them with you. Where to Get Your Medications These medications were sent to [facility]/pharmacy #[id number] - [place], [place] - [address] - [phone] - F [phone] [address] [facility] [address] carvedilol 3.125 MG tablet cyclobenzaprine 10 MG [...] applicable) KIRIT/ARB in CHF: NA Statin in MD: NA ASA in MD: NA Statin in CVA: NA Antiplatelet in CVA: NA Total time spent on discharge services: 40 minutes Including the following activities: Evaluation and Management of patient Discussion with patient and/or surrogate about current care plan Coordination with Case Management and/or Cooling Tower Operator Coordination of care with Consultants (if applicable) Coordination of care with Receiving Facility Physician (if applicable) Completion of DME forms (if applicable) Preparation of Discharge Summary Preparation of Medication Reconciliation Preparation of Discharge Prescriptions Signed: Cassie Morejon APRN - ENVIRONMENTAL EDUCATOR, TYRESE, RN PAIN MANAGEMENT-C 06/01/2021, 8:44 AM Associated attestation - Lamont Vasquez MD - 06/01/2021 12:37 PM EST Images from the original note were not included. I personally evaluated and examined the patient face to face in conjunction with the APC and agree with the management and disposition of the patient. 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 ([facility]) 05/27/2021 CHRIS (obstructive sleep apnea) 05/27/2021 Uncontrolled type 2 diabetes mellitus with hyperglycemia ([facility]) 07/29/2020 BPH with obstruction/lower urinary tract symptoms 07/25/2020 Incomplete emptying of bladder 07/25/2020 Additional Diagnoses: Diagnosis Date Cerebrovascular accident (CVA) ([facility]) Chronic pain Essential hypertension H/O heart artery stent MCC (current) use of insulin ([facility]) Type 2 diabetes mellitus without complication (HCC) [...] with doppler with color Result Date: 05/28/2021 [facility] Transthoracic Echocardiography Report (TTE) Patient Name LAURA Date of Study 05/28/2021 PIOTR A Date of 1960 Gender Male Age 60 year(s) Race Room Number 0333 Height: 72 inch, 182.88 cm Corporate ID [id number] Weight: 231 pounds, 104.8 kg # Patient Acct [id number] BSA: 2.26 m^2 BMI: 31.33 # kg/m^2 MR # [id number] Hospital Mortician Hilda Arango Interpreting Physician Alma Kan Fellow Referring Nurse Cassie Morejon, ENVIRONMENTAL EDUCATOR Practitioner Interpreting Referring Physician Fellow Type of Study TTE procedure:2D Echocardiogram, M-Mode, Doppler, ColorDoppler. Procedure Date Date: 05/28/2021 Start: 10:54 AM Study Location: [facility] Indic ations:Hypertension. History / Tech. Comments: [...] drug: Insulin Pen Needle * TechLite Pen [place] 31G X 8 MM Misc Generic drug: Insulin Pen Needle Vitamin D3 1.25 MG (14288 UT) Caps * This list has 2 medication(s) that are the same as other medications prescribed for you. Read thedirections carefully, and ask your doctor or other care provider to review them with you. Where to Get Your Medications These medications were sent to [facility]/pharmacy #[id number] - [address] - [phone] - F [phone] [place] [address] carvedilol 3.125 MG tablet cyclobenzaprine 10 MG [...] Lamont Vasquez MD MD * Cassie Morejon, PRESIDENT AND CMO - ENVIRONMENTAL EDUCATOR - 05/31/2021 1:47 PM EST Images from the original note were not included. 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 [...] with doppler with color Result Date: 05/28/2021 [facility] Transthoracic Echocardiography Report (TTE) Patient Name LAURA Date of Study 05/28/2021 PIOTR A Date of 1960 Gender Male Age 60 year(s) Race Room Number 0333 Height: 72 inch, 182.88 cm Corporate ID [id number] Weight: 231 pounds, 104.8 kg # Patient Acct [id number] BSA: 2.26 m^2 BMI: 31.33 # kg/m^2 MR # [id number] Hospital Mortician Hilda Arango Interpreting Physician Alma Kan Fellow Referring Nurse Cassie Morejon, ENVIRONMENTAL EDUCATOR Practitioner Interpreting Referring Physician Fellow Type of Study TTE procedure:2D Echocardiogram, M-Mode, Doppler, ColorDoppler. Procedure Date Date: 05/28/2021 Start: 10:54 AM Study Location: [facility] Indic ations:Hypertension. History / Tech. 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 Read thedirections carefully, and ask your doctor or other care provider to review them with you. Where to Get Your Medications These medications were sent to [facility]/pharmacy #[id number] - [place], [place] - [address] [facility] - [phone] - F [phone] [place] [id number] carvedilol 3.125 MG tablet cyclobenzaprine 10 MG [...] applicable) KIRIT/ARB in CHF: NA Statin in MD: NA ASA in MD: NA Statin in CVA: NA Antiplatelet in CVA: NA Total time spent on discharge services: 40 minutes Including the following activities: Evaluation and Management of patient Discussion with patient and/or surrogate about current care plan Coordination with Case Management and/or Cooling Tower Operator Coordination of care with Consultants (if applicable) Coordination of care with Receiving Facility Physician (if applicable) Completion of DME forms (if applicable) Preparation of Discharge Summary Preparation of Medication Reconciliation Preparation of Discharge Prescriptions Signed: Cassie Morejon APRN - ENVIRONMENTAL EDUCATOR, TYRESE RN PAIN MANAGEMENTGeremiasC 05/31/2021, 1:47 PM Associated attestation - Lamont Vasquez MD - 05/31/2021 3:17 PM EST Images from the original note were not included. I personally evaluated and examined the patient face to face in conjunction with the APC and agree with the management and disposition of the patient. 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 ([facility]) 05/27/2021 CHRIS (obstructive sleep apnea) 05/27/2021 Uncontrolled type 2 diabetes mellitus with hyperglycemia ([facility]) 07/29/2020 BPH with obstruction/lower urinary tract symptoms 07/25/2020 Incomplete emptying of bladder 07/25/2020 Additional Diagnoses: Diagnosis Date Cerebrovascular accident (CVA) ([facility]) Chronic pain Essential hypertension H/O heart artery stent MCC (current) use of insulin ([facility]) Type 2 diabetes mellitus without complication ([facility]) Review of Systems: Constitutional: negative for fevers [...] with doppler with color Result Date: 05/28/2021 [facility] Transthoracic Echocardiography Report (TTE) Patient Name LAURA Date of Study 05/28/2021 PIOTR A Date of 1960 Gender Male Age 60 year(s) Race Room Number 0333 Height: 72 inch, 182.88 cm Corporate ID [id number] Weight: 231 pounds, 104.8 kg # Patient Acct [id number] BSA: 2.26 m^2 BMI: 31.33 # kg/m^2 MR # [id number] Hospital Mortician Hilda Arango Interpreting Physician Alma Kan Fellow Referring Nurse Cassie Morejon, ENVIRONMENTAL EDUCATOR Practitioner Interpreting Referring Physician Fellow Type of Study TTE procedure:2D Echocardiogram, M-Mode, Doppler, ColorDoppler. Procedure Date Date: 05/28/2021 Start: 10:54 AM Study Location: [facility] Indic ations:Hypertension. History / Tech. Comments: [...] 0.78 (L) 1.10 - 3.70 k/uL Absolute [place] # 0.87 0.10 - 1.20 k/uL Absolute [...] ms QTc Calculation (Bazett) 441 ms P Kerby 27 degrees R Kerby -15 degrees T Kerby -82 degrees Glucose, Whole Blood Collection Time: [...] drug: Insulin Pen Needle * TechLite Pen [place] 31G X 8 MM Misc Generic drug: Insulin Pen Needle Vitamin D3 1.25 MG (14433 UT) Caps * This list has 2 medication(s) that are the same as other medications prescribed for you. Read thedirections carefully, and ask your doctor or other care provider to review them with you. Where to Get Your Medications These medications were sent to [facility]/pharmacy #[id number] - [place], [place] - [address] [place] [address] - P [phone] - F [phone] [place] [address] carvedilol 3.125 MG tablet cyclobenzaprine 10 MG [...] documented in this [facility] [employer] Phone: 1(730) 752-898501-05-2022 Hospital Discharge instructions* Instructions* Kae Goodrich RN - 05/29/2021 Arrive at [facility] by 11:00 AM on 06/03/21 for the Heart Catheterization at 12:00 PM. Nothing to eat or drink after Midnight 1/10/22. Maintain Diaz catheter. Follow up with Dr. Ferrer (Urologist) next week. --A message was left with them to contact you for an appointment, if you do not hear from them by Thursday, call office at [phone]. * Attachments The following attachments cannot be sent through Care Everywhere. * CAD (Coronary Artery Disease): General Info (Albanian) documented in this encounter[facility]out Phone: 1(539) 567-536612-01-2021 History of Present illness Narrative* Gopi Mcelroy - 04/24/2021 8:00 PM EST Piotr arrived with on time for his Diagnostic Sleep Study. stayed for setup, and will return to pick Piotr up in morning. Setup, and polysomnogram progressed successfully. documented in this encounter[facility] Sprout Phone: 1(445) 937-410202-01-2020 History general Narrative - Reported* Type Description [...] he was younger. Hospitalization History STROKE 06/2019 [facility] Other 02-01-2020 History general Narrative - Reported* [...] he was younger. 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 [...] without residual deficits documented in this encounter [employer] Phone: evaluation note* Diagnosis Uricaciduria Other nonspecific finding on examination of urine documented in this encounter [employer] Phone: evaluation noteNo assessment information available [facility] Work Phone: Evaluation note* Diagnosis Incomplete emptying of bladder Incomplete bladder emptying documented in this encounter [employer] Phone: [email or web address] note* Diagnosis Incomplete emptying of bladder Incomplete bladder emptying Prostate cancer screening Special screening for malignant neoplasm of prostate S/P angioplasty with stent Postsurgical percutaneous transluminal coronary angioplasty status Chronic systolic heart failure (HCC) Chronic systolic heart failure Shortness of breath Coronary artery disease involving [place] coronary artery of [place] heart with angina pectoris with documented spasm (HCC) Intermittent claudication (HCC) Peripheral vascular disease, unspecified Primary hypertension Unspecified essential hypertension Mixed hyperlipidemia CHRIS (obstructive sleep apnea) Obstructive sleep apnea (adult) (pediatric) Stage 3 chronic kidney disease, unspecified whether stage 3a or 3b CKD (HCC) Primary hyperparathyroidism (HCC) Primary hyperparathyroidism Adenoma of left adrenal gland Benign neoplasm of adrenal gland documented in this encounter [employer] Phone: evaluation note* Diagnosis Incomplete bladder emptying documented in this encounter [employer] Phone: evalasneue note* Diagnosis BPH with obstruction/lower urinary tract symptoms Hypertrophy of prostate with urinary obstruction and other lower urinary tract symptoms (LUTS) Incomplete emptying of bladder Incomplete bladder emptying Frequency of urination Urinary frequency Urgency of micturition Enlarged prostate with urinary obstruction Hypertrophy of prostate with urinary obstruction and other lower urinary tract symptoms (LUTS) documented in this encounter [employer] Phone: evaluation note* Diagnosis BPH with obstruction/lower urinary tract symptoms Hypertrophy of prostate with urinary obstruction and other lower urinary tract symptoms (LUTS) Incomplete emptying of bladder Incomplete bladder emptying Frequency of urination Urinary frequency Urgency of micturition Enlarged prostate with urinary obstruction Hypertrophy of prostate with urinary obstruction and other lower urinary tract symptoms (LUTS) documented in this encounter [employer] Phone: [email or web address] note* Diagnosis Preop cardiovascular exam Pre-operative cardiovascular examination ASHD (arteriosclerotic heart disease) Coronary atherosclerosis of unspecified type of vessel, [place] or graft S/P angioplasty with stent Postsurgical [...] tract symptoms (LUTS) documented in this encounter [employer] Phone: [email or web address] noteNo [employer] Other Evaluation note* Diagnosis BPH with obstruction/lower urinary tract symptoms- Primary Hypertrophy of prostate with urinary obstruction and other lower urinary tract symptoms (LUTS) documented in this encounter [employer] Phone: evallqhesc note* Diagnosis BPH with obstruction/lower urinary tract symptoms Hypertrophy of prostate with urinary obstruction and other lower urinary tract symptoms (LUTS) Post-operative state Other postprocedural status documented in this encounter [employer] Phone: evaluation note* Diagnosis Dyspnea on exertion Other dyspnea and respiratory abnormality documented in this encounter [employer] note* Diagnosis Screening PSA (prostate specific antigen) Special screening for malignant neoplasm of prostate Incomplete emptying of bladder Incomplete bladder emptying documented in this encounter [employer] note* Diagnosis Onset Date Resolution Status ASHD (arteriosclerotic heart disease) acute Cerebral atherosclerosis acu te Chronic kidney disease acute Chronic venous insufficiency of lower extremity acute Elevated cholesterol acute Hyperparathyroidism acute Hypertension acute Type 2 diabetes mellitus with hyperglycemia acute [facility] Work Phone: Evaluation note* Diagnosis BPH with obstruction/lower urinary tract symptoms- Primary Hypertrophy of prostate with urinary obstruction and other lower urinary tract symptoms (LUTS) documented in this encounter [facility]* Diagnosis Chronic diastolic heart failure (HCC) Chronic diastolic heart failure documented in this encounter [facility]* Diagnosis CHRIS (obstructive sleep apnea)- Primary Obstructive sleep apnea (adult) (pediatric) Abnormal stress test Other nonspecific abnormal cardiovascular system function study Chest pain Chest pain, unspecified 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, unspecified vessel or lesion type (HCC) Constipation, unspecified constipation type documented in this encounter [facility]* Diagnosis Onset Date Resolution Status Cardiomyopathy, [...] Type 2 diabetes mellitus with hyperglycemia acute [facility] Work Phone: Evaluation note* Diagnosis Critical [...] lower extremities (HCC) documented in this encounter [facility] note* Diagnosis Critical limb ischemia of both lower extremities (HCC) Bilateral lower leg cellulitis- Primary Cellulitis and abscess of leg, except foot Pain in left lower leg Critical limb ischemia of both lower extremities (HCC) documented in this encounter [facility]* Diagnosis Acute on chronic diastolic (congestive) heart failure (HCC) ASHD (arteriosclerotic heart disease) Coronary atherosclerosis of unspecified type of vessel, [place] or graft Essential hypertension Unspecified essential hypertension Mixed hyperlipidemia PAD (peripheral artery disease) ([facility]) Unspecified disorders of arteries and arterioles CHRIS (obstructive sleep apnea) Obstructive sleep apnea (adult) (pediatric) Obesity, unspecified class, unspecified obesity type, unspecified whether serious comorbidity present [facility]* Diagnosis Dermatophytosis of nail- Primary Dystrophic nail Other specified disease of nail Type II diabetes mellitus with peripheral circulatory disorder ([facility]) Type II or unspecified type diabetes mellitus with peripheral circulatory disorders, not stated as uncontrolled Diabetic polyneuropathy associated with type 2 diabetes mellitus ([facility]) [facility] Diagnosis Critical limb ischemia of both lower extremities (HCC) [facility] note* Diagnosis Cellulitis of left foot- Primary Type II diabetes mellitus with peripheral circulatory disorder ([facility]) Type II or unspecified type diabetes mellitus with peripheral circulatory disorders, not stated as uncontrolled Diabetic polyneuropathy associated with type 2 diabetes mellitus ([facility]) Skin ulcer of midfoot region, left, limited to breakdown of skin ([facility]) documented in this encounter [facility]* Diagnosis Acute on chronic diastolic (congestive) heart failure (HCC) ASHD (arteriosclerotic heart disease) Coronary atherosclerosis of unspecified type of vessel, [place] or graft S/P angioplasty with stent Postsurgical [...] diastolic heart failure documented in this encounter [facility] note* Diagnosis Cellulitis of left foot- Primary Type II diabetes mellitus with peripheral circulatory disorder ([facility]) Type II or unspecified type diabetes mellitus with peripheral circulatory disorders, not stated as uncontrolled Diabetic polyneuropathy associated with type 2 diabetes mellitus (CMS/HCC) Skin ulcer of midfoot region, left, limited to breakdown of skin (CMS/HCC) [facility] Diagnosis Dermatophytosis of nail- Primary Dystrophic nail Other specified disease of nail Type II diabetes mellitus with peripheral circulatory disorder (CMS/HCC) Type II or unspecified type diabetes mellitus with peripheral circulatory disorders, not stated as uncontrolled Diabetic polyneuropathy associated with type 2 diabetes mellitus (CMS/HCC) documented in this encounter [facility]* Diagnosis Gangrene of toe of both feet (HCC)- Primary Eschar of toe Unspecified local infection of skin and subcutaneous tissue Critical limb ischemia of both lower extremities (HCC) documented [facility] this encounter [facility]* Diagnosis Acute renal failure superimposed on chronic kidney disease, unspecified acute renal failure type, unspecified CKD stage- Primary Dehydration [facility] encounter [facility]* Diagnosis Chronic ulcer of great toe of right foot with fat layer exposed (HCC)- Primary Eschar of toe Unspecified local infection of skin and subcutaneous tissue Critical limb ischemia of both lower extremities Gangrene of toe of both feet (HCC) [facility] this encounter [facility]* Diagnosis Eschar of toe Unspecified local infection of skin and subcutaneous tissue Chronic ulcer of great toe of right foot with fat layer exposed (HCC) [facility]* Diagnosis Chronic ulcer of great toe of right foot with fat layer exposed (HCC)- Primary Critical limb ischemia of both lower extremities [facility]* Diagnosis Chronic ulcer of great toe of right foot with fat layer exposed (HCC) documented [facility] encounter [facility]* Diagnosis Chronic ulcer of great toe of right foot with fat layer exposed (HCC)- Primary Diabetic ulcer of right great toe (HCC) Type II or unspecified type diabetes mellitus with other specified manifestations, not stated as uncontrolled [facility] this encounter [facility]* Diagnosis Screening PSA (prostate specific antigen) Special screening for malignant neoplasm of prostate [facility] this encounter [facility]* Diagnosis Acute on chronic diastolic (congestive) heart failure (HCC) ASHD (arteriosclerotic heart disease) Coronary atherosclerosis of unspecified type of vessel, [place] or graft S/P angioplasty with stent Postsurgical percutaneous transluminal coronary angioplasty status Essential hypertension Unspecified essential hypertension Mixed hyperlipidemia PAD (peripheral artery disease) Unspecified disorders of arteries and arterioles CHRIS (obstructive sleep apnea) Obstructive sleep apnea (adult) (pediatric) Stage 3a chronic kidney disease ([facility]) [facility]* Diagnosis Chronic ulcer of great toe of right foot with fat layer exposed (HCC) Diabetic ulcer of right great toe (HCC) Type II or unspecified type diabetes mellitus with other specified manifestations, not stated as uncontrolled [facility]* Diagnosis Osteomyelitis of great toe of right foot (HCC)- Primary Critical limb ischemia of both lower extremities (HCC) Infection of toe Unspecified local infection of skin and subcutaneous tissue Chronic ulcer of great toe of right foot with fat layer exposed (HCC) [facility]* Diagnosis Dermatophytosis of nail- Primary Dystrophic nail Other specified disease of nail Type II diabetes mellitus with peripheral circulatory disorder (HCC) Type II or unspecified type diabetes mellitus with peripheral circulatory disorders, not stated as uncontrolled Diabetic polyneuropathy associated with type 2 diabetes mellitus ([facility]) [facility] Diagnosis Osteomyelitis of great toe of right foot (HCC)- Primary Acute osteomyelitis of right foot (HCC) Acute osteomyelitis, ankle and foot Open wound of toe(s) Non-healing open wound of toe Open wound of toe(s), complicated [facility]* Diagnosis Orthopedic aftercare- Primary Unspecified orthopedic aftercare History of amputation of right great toe [facility]* Diagnosis Orthopedic aftercare- Primary Unspecified orthopedic aftercare History of amputation of right great toe [facility]* Diagnosis Critical limb ischemia of both lower extremities (HCC)- Primary Eschar of toe Unspecified local infection of skin and subcutaneous tissue Gangrene of toe of both feet ([facility]) documented in this encounter [facility]* Diagnosis Onset Date Resolution Status [...] 2024 1:53pm Wellness examination noneactive 2024 1:53pm [facility] Work Phone: reason for referral (narrative)No reason for referral information [facility] Work Phone: Rekvba for visit Narrative* Auth/Cert Specialty Diagnoses / Procedures Referred By Contac t Referred To Contact Diagnoses Hypotension Benign essential HTN Lamont Vasquez MD [address] [facility] [address] [place] [address] [facility] [address] [place] [address] Referral ID Status Reason Start Date Expiration Date Visits Re quested Visits Authorized [id number] 1 1 [facility] Work Phone: reason for visit Narrative* Imaging (Routine) - Not Required - RTA Specialty Diagnoses / Procedures Referred By Contdimitri t Referred To Contact Radiology Diagnoses Chronic ulcer of great toe of right foot with fat layer exposed (HCC) Diabetic ulcer of right great toe (HCC) Procedures MRI FOOT RIGHT WO CONTRAST Quicny Penn DPM [address] [place] [address] [address] [address] Phone: tel: fax: Referral ID Status Reason Start Date Expiration Date V isits Requested Visits Authorized [id number] Not Required - RTA 10/04/2024 10/04/2025 1 1 [facility] for [facility] Narrative* Auth/Cert Specialty Diagnoses / Procedures Referred By Contdimitri t Referred To Contact Diagnoses Acute osteomyelitis of right foot (HCC) osteomyelitis with complicated wound right foot and hallux Procedures TN AMPUTATION TOE METATARSOPHALANGEAL JOINT TOE AMPUTATION-big toe right, flap closure of right foot Quincy Penn DPM [address] [facility] [address] [place] [address] Phone: tel: fax: [facility] [employer] [address] [place] [address] Referral ID Status Reason Start Date Expiration Date Visits Re quested Visits Authorized [id number] 1 1 [email or web address] Assessments Diagnosis BPH with obstruction/lower urinary tract [...] Agents on File Name Relationship Healthcare Agent [facility] p Communication Mary Kerr Spouse Primary Decision [...] Mary Baldetti Spouse Primary Decision Maker [phone] (Home) Jeff Baldetti Child Secondary Decision Make r Healthcare Agents on File Name Relationship Healthcare Agent Relationshi p Communication Mary Baldetti Spouse Primary Decision Maker [phone] (Home) Jeff Baldetti Child Secondary Decision Make r Healthcare Agents on File Name Relationship Healthcare Agent Relationshi p Communication Mary Baldetti Spouse Primary Decision Maker [phone] (Home) Jeff Baldetti Child Secondary Decision Make r Healthcare Agents on File Name Relationship Healthcare Agent Relationshi p Communication Mary Baldetti Spouse Primary Decision Maker [phone] (Home) Jeff Baldetti Child Secondary Decision Make r Healthcare Agents on File Name Relationship Healthcare Agent Relationshi p Communication Mary Baldetti Spouse Primary Decision Maker Jeff Baldetti Child Secondary Decision Make r Healthcare Agents on File Name Relationship Healthcare Agent Relationshi p Communication Mary Baldetti Spouse Primary Decision Maker [phone] (Home) Jeff Baldetti Child Secondary Decision Make r Healthcare Agents on File Name Relationship Healthcare Agent Relationshi p Communication Mary Baldetti Spouse Primary Decision Maker [phone] (Home) Jeff Baldetti Child Secondary Decision Make r Healthcare Agents on File Name Relationship Healthcare Agent Relationshi p Communication Mary Baldetti Spouse Primary Decision Maker [phone] (Home) Jeff Baldetti Child Secondary Decision Make [...] File Name Relationship Healthcare Agent Relationship Communication Mray Kerr Spouse Primary Decision Maker Jeff Kerr [...] Documents on File Type Date Recorded 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 ACP-Advance Directive 02/25/2024 4:17 PM [...] Name Relationship Healthcare Agent Relationship Communication Mary eKrr Spouse Primary Decision Maker Jeff Conleyi Child Secondary Decision Make r Diego Conleyi Child Supplemental (Ot her) Decision Maker Documents on File Type Date Recorded 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 ACP-Advance Directive 02/25/2024 4:17 PM [...] Mary Baldetti Spouse Primary Decision Maker [phone] (Home) Jeff Baldetti Child Secondary Decision Make r Stephn Baldetti Child Supplemental (Ot her) Decision Maker Healthcare Agents on File Name Relationship Healthcare Agent Relationship Communication Mary Baldetti Spouse Primary Decision Maker [phone] (Home) Jeff Baldetti Child Secondary Decision Make r Stephn Baldetti Child Supplemental (Ot her) Decision Maker Healthcare Agents on File Name Relationship Healthcare Agent Relationship Communication Mary Baldetti Spouse Primary Decision Maker [phone] (Home) Jeff Baldetti Child Secondary Decision Make r Stephn Baldetti Child Supplemental (Ot her) Decision Maker Healthcare Agents on File Name Relationship Healthcare Agent Relationship Communication Mary Baldetti Spouse Primary Decision Maker [phone] (Home) Jeff Baldetti Child Secondary Decision Make r Stephn Baldetti Child Supplemental (Ot her) Decision Maker Healthcare Agents on File Name Relationship Healthcare Agent Relationship Communication Mary Baldetti Spouse Primary Decision Maker [phone] (Home) Jeff Baldetti Child Secondary Decision Make [...] None CHG CT SCAN,ABDOMENT AND PELVIS,W/O CONTRAST 91972 - CHG CT SCAN,ABDOMENT AND PELVIS,W/O CONTRAST Arabella Dyer PA-C [address] [facility] [address] [place] [address] Referral ID Status Reason Start Date Expiration Date Visits Re quested Visits Authorized [id number] Closed 09/09/2021 10/24/2021 1 1 Specialty Diagnoses / Procedures Referred By Contac t Referred To Contact Radiology Diagnoses Incomplete bladder emptying Procedures US RENAL COMPLETE Arabella Dyer PA-C [address] [place] [address] [address] [place] [address] Referral ID Status Reason Start Date Expiration Date Visits Re quested Visits Authorized [id number] Closed 05/20/2022 05/20/2023 1 1 Specialty Diagnoses / Procedures Referred By Contac t Referred To Contact Cardiology Diagnoses BPH with obstruction/lower urinary tract symptoms Incomplete emptying of bladder Frequency of urination Urgency of micturition Procedures EKG 12 Lead Akira Ferrer MD [address] [facility], [address] [place] [address] Referral ID Status Reason Start Date Expiration Date Visits Re quested Visits Authorized [id number] Open 05/30/2022 05/30/2023 1 1 Specialty Diagnoses [...] test, lexiscan CHG MYOCARDIAL SPECT MULTIPLE STUDIES 03034 - CHG MYOCARDIAL SPECT MULTIPLE STUDIES Alma Kan MD [address] [place] [phone] Referral ID Status Reason Start Date Expiration Date Visits Re quested Visits Authorized [id number] Closed 07/10/2022 08/24/2022 1 1 Specialty Diagnoses [...] Echo 2D w doppler w color complete TN ECHO TTHRC R-T 2D W/WOM-MODE COMPL SPEC&COLR D 48701 - TN ECHO TTHRC R-T 2D W/WOM-MODE COMPL SPEC&COLR D Alma Kan MD [address] [facility] [place] [address] Referral ID Status Reason Start Date Expiration Date V isits Requested Visits Authorized [id number] Authorized 07/10/2022 07/04/2023 3 3 Specialty Diagnoses / Procedures Referred By Bj fontenot Referred To Contact Thoracic Surgery / Cardiothoracic Surgery Diagnoses 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, unspecified vessel or lesion type ([facility]) [place] [address] [place] [address] Adrian Delgadillo MD [address] [facility] [address] [facility] [place] [address] Referral ID Status Reason Start Date Expiration Date V isits Requested Visits Authorized [id number] Open Specialty Services Required 12/21/2023 12/20/2024 1 1 Scheduling Instructions [facility] [place], Cardiovascular Surgery Comments The patient can be [...] and content) DATE CREATED AUTHOR 08/30/2020 Baltazar Bowie [facility] DATE CREATED AUTHOR AUTHOR'S ORGANIZ ATION 06/24/2021 Priscilla Noriega spiaziza DATE CREATED AUTHOR AUTHOR'S ORGANIZ ATION 11/02/2022 [facility] DATE CREATED AUTHOR AUTHOR'S ORGANIZ ATION 11/14/2022 [facility] DATE CREATED AUTHOR AUTHOR'S ORGANIZ ATION 10/03/2024 [facility] DATE CREATED AUTHOR AUTHOR'S ORGANIZ ATION 10/23/2024 [facility] DATE CREATED AUTHOR AUTHOR'S ORGANIZ ATION 11/12/2024 [facility] EPIC DATE CREATED AUTHOR AUTHOR'S ORGANIZ ATION 12/30/2024 [facility] Reason for Visit (unrecogniz ed section and content) Specialty Diagnoses / Procedures Referred By Contac t Referred To Contact Sleep Center Diagnoses Obstructive sleep apnea (adult) (pediatric) Procedures TN POLYSOM 6/>YRS SLEEP 4/> ADDL INAG ATTND [facility] [address] [place] [id number] [facility] [address] [place] [id number] Referral ID Status Reason Start Date Expiration Date V isits Requested Visits Authorized [id number] Authorized 04/23/2021 04/24/2022 1 1 Specialty Diagnoses / Procedures Referred By Contac t Referred To Contact Radiology Diagnoses Uricaciduria R82.998 (ICD-10-CM) - Uricaciduria Procedures CT ABDOMEN PELVIS WO CONTRAST Additional Contrast? None CHG CT SCAN,ABDOMENT AND PELVIS,W/O CONTRAST [address]2789 - CHG CT SCAN,ABDOMENT AND PELVIS,W/O CONTRAST Arabella Dyer PA-C [address] [facility] [address] [place] [address] Referral ID Status Reason Start Date Expiration Date Visits Re quested Visits Authorized [id number] Closed 09/09/2021 10/24/2021 1 1 Specialty Diagnoses / Procedures Referred By Contac t Referred To Contact Cardiology Diagnoses Abnormal stress test Procedures Referral to Cardiac Cath Alma Kan MD [address] [place] [address] [place] [address] Referral ID Status Reason Start Date Expiration Date Visits Re quested Visits Authorized [id number] Closed 05/29/2021 11/24/2021 1 1 Specialty Diagnoses / Procedures Referred By Contac t Referred To Contact Radiology Diagnoses Incomplete bladder emptying Procedures US RENAL COMPLETE Arabella Dyer PA-C [address] [facility] [place] [address] Referral ID Status Reason Start Date Expiration Date Visits Re quested Visits Authorized [id number] Closed 05/20/2022 05/20/2023 1 1 Specialty Diagnoses [...] test, lexiscan CHG MYOCARDIAL SPECT MULTIPLE STUDIES 91131 - CHG MYOCARDIAL SPECT MULTIPLE STUDIES Alma Kan MD [address] [facility] [place] [address] Referral ID Status Reason Start Date Expiration Date Visits Re quested Visits Authorized [id number] Closed 07/10/2022 08/24/2022 1 1 Specialty Diagnoses [...] Echo 2D w doppler w color complete TN ECHO TTHRC R-T 2D W/WOM-MODE COMPL SPEC&COLR D 72160 - [place] ECHO TTHRC R-T 2D W/WOM-MODE COMPL SPEC&COLR D Alma Kan MD [address] [place] [phone] Referral ID Status Reason Start Date Expiration Date V isits Requested Visits Authorized [id number] Authorized 07/10/2022 07/04/2023 3 3 Specialty Diagnoses / Procedures Referred By Cox Bransonac t Referred To Contact Diagnoses 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, LOWER URINARY TRACT SYMPTOMS Procedures TN LASER VAPORIZATION OF PROSTATE FOR URINE FLOW CYSTOSCOPY TRANSURETHRAL RESECTION PROSTATE LASER-PVP GREENLIGHT Akira Ferrer MD [address] [facility], [address] [place] [address] [facility] [address] [place] [address] Referral ID Status Reason Start Date Expiration Date Visits Re quested Visits Authorized [id number] 1 1 Specialty Diagnoses / Procedures Referred By Contac t Referred To Contact Radiology Diagnoses Primary hyperparathyroidism (HCC) Hypercalcemia Essential (primary) hypertension Chronic kidney disease, stage II (mild) Procedures NM PARATHYORID W SPECT Iboaya, Benahili U, DO [address] [place] [address] Referral ID Status Reason Start Date Expiration Date Visits Re quested Visits Authorized [id number] Closed 01/15/2023 03/01/2023 1 1 Specialty Diagnoses / Procedures Referred By Contac t Referred To Contact Diagnoses BPH with obstruction/lower urinary tract symptoms BPH with obstruction/lower urinary tract symptoms [N40.1, N13.8] Procedures TN LASER VAPORIZATION OF PROSTATE FOR URINE FLOW CYSTOSCOPY TRANSURETHRAL RESECTION PROSTATE LASER-PVP Akira Nobles MD [address] [facility], [address] [place] [address] [facility] [address] [place] [address] Referral ID Status Reason Start Date Expiration Date Visits Re quested Visits Authorized [id number] 1 1 Specialty Diagnoses / Procedures Referred By Contac t Referred To Contact Diagnoses Abnormal stress test Chest pain CAD (coronary artery disease) Abnormal stress test [R94.39] Chest pain [R07.9] CAD (coronary artery disease) [I25.10] Procedures TN CATH PLMT L HRT & ARTS W/NJX & ANGIO IMG S&I Left [place] [address] [facility] [address] [place] [address] [facility] [address] [place] [address] Referral ID Status Reason Start Date Expiration Date Visits Re quested Visits Authorized [id number] 1 1 Reason Comments Leg Swelling Both [...] venous insufficiency Fred Villegas MD [address] [place] [address] [facility] [address] [place] [address] Referral ID Status Reason Start Date Expiration Date Visits Re quested Visits Authorized [id number] 1 1 Reason Comments Foot Pain C/O [...] lower extremity arteries left Floyd Vee MD [address] [place] [address] [address] [place] [address] Referral ID Status Reason Start Date Expiration Date Visits Re quested Visits Authorized [id number] Open 03/16/2024 03/16/2025 1 1 Reason Comments [...] Active Jorge Pritchett DO Attending Provider Active Investigator Claims Relationship Specialty Start Date End Date Jorge PritchettDO [address] [place] [address] PCP - General Internal Medicine 04/17/21 Investigator Claims Relationship Specialty Start Date End Date Jorge Pritchett DO [address] [place] [address] PCP - General Internal Medicine 04/17/21 Investigator Claims Relationship Specialty Start Date End Date YarelyJorge DO [address] [place] [address] PCP - General Internal Medicine 04/17/21 Investigator Claims Relationship Specialty Start Date End Date Jorge Pritchett, DO [address] [place] [address] PCP - General Internal Medicine 04/17/21 Investigator Claims Relationship Specialty Start Date End Date Jorge Pritchett, DO [address] [place] [address] PCP - General Internal Medicine 04/17/21 Investigator Claims Relationship Specialty Start Date End Date Jorge Pritchett, DO [address] [place] [address] PCP - General Internal Medicine 04/17/21 Investigator Claims Relationship Specialty Start Date End Date Jorge Pritchett, DO [address] [place] [address] PCP - General Internal Medicine 04/17/21 Investigator Claims Relationship Specialty Start Date End Date Jorge Pritchett, DO [address] [place] [address] PCP - General Internal Medicine 04/17/21 Investigator Claims Relationship Specialty Start Date End Date Jorge Pritchett, DO [address] [place] [address] PCP - General Internal Medicine 04/17/21 Investigator Claims Relationship Specialty Start Date End Date Jorge Pritchett, DO [address] [place] [address] PCP - General Internal Medicine 04/17/21 Investigator Claims Relationship Specialty Start Date End Date Jorge Pritchett, DO [address] [place] [address] PCP - General Internal Medicine 04/17/21 Investigator Claims Relationship Specialty Start Date End Date Jorge Pritchett, DO [address] [place] [address] PCP - General Internal Medicine 04/17/21 Investigator Claims Relationship Specialty Start Date End Date Jorge Pritchett, DO [address] [facility] [place] [address] PCP - General Internal Medicine 04/17/21 Investigator Claims Relationship Specialty Start Date End Date Jorge Pritchett, DO [address] [facility] [place] [address] PCP - General Internal Medicine 04/17/21 Investigator Claims Relationship Specialty Start Date End Date Jorge Pritchett, DO [address] [facility] [place] [address] PCP - General Internal Medicine 04/17/21 Investigator Claims Relationship Specialty Start Date End Date Jorge Pritchett, DO [address] [facility] [place] [address] PCP - General Internal Medicine 04/17/21 Investigator Claims Relationship Specialty Start Date End Date Jorge Pritchett, DO [address] [facility] [place] [address] PCP - General Internal Medicine 04/17/21 Investigator Claims Relationship Specialty Start Date End Date Jorge Pritchett, DO [address] [facility] [place] [address] PCP - General Internal Medicine 04/17/21 Investigator Claims Relationship Specialty Start Date End Date Jorge Pritchett, DO [address] [facility] [place] [address] PCP - General Internal Medicine 04/17/21 Investigator Claims Relationship Specialty Start Date End Date Jorge Pritchett, DO [address] [facility] [place] [address] PCP - General Internal Medicine 04/17/21 Team Status: Inactive Member Role Status Dates Pia Douglass , MEEK-C Primary Care Provider Active Alma Kan MD Attending Provider Active Investigator Claims Relationship Specialty Start Date End Date Jorge Pritchett, DO [address] [facility] [place] [address] PCP - General Internal Medicine 04/17/21 Investigator Claims Relationship Specialty Start Date End Date Jorge Pritchett, DO [address] [facility] [place] [address] PCP - General Internal Medicine 04/17/21 Investigator Claims Relationship Specialty Start Date End Date Jorge Pritchett, DO [address] [facility] [place] [address] PCP - General Internal Medicine 04/17/21 Investigator Claims Relationship Specialty Start Date End Date Jorge Pritchett, DO [address] [facility] [address] PCP - General Internal Medicine 04/17/21 Investigator Claims Relationship Specialty Start Date End Date Jorge Pritchett, DO [address] [facility] [address] PCP - General Internal Medicine 04/17/21 Investigator Claims Relationship Specialty Start Date End Date Jorge Pritchett, DO [address] [facility] [address] PCP - General Internal Medicine 04/17/21 Investigator Claims Relationship Specialty Start Date End Date Jorge Pritchett, DO [address] [facility] [address] PCP - General Internal Medicine 04/17/21 Investigator Claims Relationship Specialty Start Date End Date Jorge Pritchett, DO [address] [facility] [address] PCP - General Internal Medicine 04/17/21 Investigator Claims Relationship Specialty Start Date End Date Jorge Pritchett, DO [address] [place] [address] PCP - General Internal Medicine 04/17/21 Investigator Claims Relationship Specialty Start Date End Date Jorge Pritchett, DO [address] [place] [address] PCP - General Internal Medicine 04/17/21 Investigator Claims Relationship Specialty Start Date End Date Jorge Pritchett, DO [address] [place] [address] PCP - General Internal Medicine 04/17/21 Investigator Claims Relationship Specialty Start Date End Date Jorge Pritchett, DO [address] [place] [address] PCP - General Internal Medicine 04/17/21 Investigator Claims Relationship Specialty Start Date End Date Jorge Pritchett, DO [address] [place] [address] PCP - General Internal Medicine 04/17/21 Investigator Claims Relationship Specialty Start Date End Date Jorge Pritchett, DO [address] [place] [address] PCP - General Internal Medicine 04/17/21 Investigator Claims Relationship Specialty Start Date End Date Jorge Pritchett, DO [address] [place] [address] PCP - General Internal Medicine 04/17/21 Investigator Claims Relationship Specialty Start Date End Date Jorge Pritchett, DO [address] [place] [address] PCP - General Internal Medicine 04/17/21 Investigator Claims Relationship Specialty Start Date End Date Jorge Pritchett, DO [address] [place] [address] PCP - General Internal Medicine 04/17/21 Investigator Claims Relationship Specialty Start Date End Date Yarely Jorge, DO [address] [place] [facility] [address] PCP - General Internal Medicine 04/17/21 Investigator Claims Relationship Specialty Start Date End Date Jorge Pritchett, DO [address] [place] [facility] [address] PCP - General Internal Medicine 04/17/21 Investigator Claims Relationship Specialty Start Date End Date Jorge Pritchett, DO [address] [place] [facility] [address] PCP - General Internal Medicine 04/17/21 Investigator Claims Relationship Specialty Start Date End Date Jorge Pritchett DO [address] [place] [facility] [address] PCP - General Internal Medicine 04/17/21 Investigator Claims Relationship Specialty Start Date End Date Jorge Pritchett DO [address] [place] [facility] [address] PCP - General Internal Medicine 04/17/21 Investigator Claims Relationship Specialty Start Date End Date Jorge Pritchett DO [address] [place] [facility] [address] PCP - General Internal Medicine 04/17/21 Investigator Claims Relationship Specialty Start Date End Date Jorge Pritchett DO [address] [place] [facility] [address] PCP - General Internal Medicine 04/17/21 Investigator Claims Relationship Specialty Start Date End Date Jorge Pritchett DO [address] [facility] [place] [address] PCP - General Internal Medicine 04/17/21 Investigator Claims Relationship Specialty Start Date End Date Jorge Pritchett DO [address] [facility] [place] [address] PCP - General Internal Medicine 04/17/21 Investigator Claims Relationship Specialty Start Date End Date Jorge Pritchett DO [address] [place] [facility] [address] PCP - General Internal Medicine 04/17/21 Investigator Claims Relationship Specialty Start Date End Date Jorge Pritchett DO [address] [place] [facility] [address] PCP - General Internal Medicine 04/17/21 Team Status: Inactive Member Role Status Dates Jorge Pritchett DO Primary Care Provide r, Attending Provider Active Start: November 10, 2023 End: November 10, 2023 Team Status: Inactive Member Role Status Dates Jorge Pritchett DO Primary Care Provide r, Attending Provider Active Start: February 03, 2024 End: February 03, 2024 Investigator Claims Relationship Specialty Start Date End Date Jorge Pritchett DO [address] [facility] [place] [address] PCP - General Internal Medicine 04/17/21 Investigator Claims Relationship Specialty Start Date End Date Jorge Pritchett DO [address] [place] [facility] [address] PCP - General Internal Medicine 04/17/21 Investigator Claims Relationship Specialty Start Date End Date Jorge Pritchett DO [address] [place] [facility] [address] PCP - General Internal Medicine 04/17/21 Investigator Claims Relationship Specialty Start Date End Date Jorge Pritchett MD [address] [facility] [place] [address] PCP - General Internal Medicine 02/13/23 Investigator Claims Relationship Specialty Start Date End Date Jorge Pritchett MD [address] [place] [facility] [address] PCP - General Internal Medicine 02/13/23 Investigator Claims Relationship Specialty Start Date End Date Jorge Pritchett DO [address] [place] [facility] [place] [address] PCP - General Internal Medicine 04/17/21 Investigator Claims Relationship Specialty Start Date End Date Jorge Pritchett DO [address] [place] [facility] [place] [address] PCP - General Internal Medicine 04/17/21 Investigator Claims Relationship Specialty Start Date End Date Jorge Pritchett MD [address] [place] [facility] [address] PCP - General Internal Medicine 02/13/23 Investigator Claims Relationship Specialty Start Date End Date Jorge Pritchett MD [address] [place] [facility] [address] PCP - General Internal Medicine 02/13/23 Investigator Claims Relationship Specialty Start Date End Date Jorge Pritchett DO [address] [place] [facility] [address] PCP - General Internal Medicine 04/17/21 Investigator Claims Relationship Specialty Start Date End Date Jorge Pritchett MD [address] [place] [facility] [address] PCP - General Internal Medicine 02/13/23 Investigator Claims Relationship Specialty Start Date End Date Jorge Pritchett DO [address] [place] [facility] [address] PCP - General Internal Medicine 04/17/21 Investigator Claims Relationship Specialty Start Date End Date Jorge Pritchett DO [address] [place] [facility] [address] PCP - General Internal Medicine 04/17/21 Investigator Claims Relationship Specialty Start Date End Date Jorge Pritchett DO [address] [place] [facility] [address] PCP - General Internal Medicine 04/17/21 [...] July 12, 2024 End: July 12, 2024 Investigator Claims Relationship Specialty Start Date End Date Jorge Pritchett DO [address] [place] [facility] [address] PCP - General Internal Medicine 04/17/21 Investigator Claims Relationship Specialty Start Date End Date Jorge Pritchett DO [address] [place] [facility] [address] PCP - General Internal Medicine 04/17/21 Investigator Claims Relationship Specialty Start Date End Date Yarely Jorge [address] [place] [facility] [address] PCP - General Internal Medicine 04/17/21 Investigator Claims Relationship Specialty Start Date End Date Jorge Pritchett DO [address] [place] [facility] [place] [address] PCP - General Internal Medicine 04/17/21 Investigator Claims Relationship Specialty Start Date End Date Jorge Pritchett DO [address] [place] [facility] [address] PCP - General Internal Medicine 04/17/21 Investigator Claims Relationship Specialty Start Date End Date Jorge Pritchett DO [address] [place] [facility] [place] [address] PCP - General Internal Medicine 04/17/21 Investigator Claims Relationship Specialty Start Date End Date Jorge Pritchett DO [address] [place] [facility] [address] PCP - General Internal Medicine 04/17/21 Team [...] September 21, 2024 End: September 21, 2024 Investigator Claims Relationship Specialty Start Date End Date Jorge Pritchett DO [address] [place] [facility] [address] PCP - General Internal Medicine 04/17/21 Investigator Claims Relationship Specialty Start Date End Date Jorge Pritchett DO [address] [place] [facility] [address] PCP - General Internal Medicine 04/17/21 Investigator Claims Relationship Specialty Start Date End Date Jorge Pritchett DO [address] [place] [facility] [address] PCP - General Internal Medicine 04/17/21 Investigator Claims Relationship Specialty Start Date End Date Jorge Pritchett DO [address] [place] [facility] [address] PCP - General Internal Medicine 04/17/21 Investigator Claims Relationship Specialty Start Date End Date Jorge Pritchett DO [address] [place] [facility] [place] [phone] PCP - General Internal Medicine 04/17/21 Investigator Claims Relationship Specialty Start Date End Date Jorge Pritchett DO [address] [facility] [place] [phone] PCP - General Internal Medicine 04/17/21 Investigator Claims Relationship Specialty Start Date End Date Jorge Pritchett DO [address] [facility] [place] [phone] PCP - General Internal Medicine 02/13/23 Investigator Claims Relationship Specialty Start Date End Date Jorge Pritchett DO [address] [facility] [place] [phone] PCP - General Internal Medicine 02/13/23 Investigator Claims Relationship Specialty Start Date End Date Jorge Pritchett DO [address] [place] [address] PCP - General Internal Medicine 04/17/21 Investigator Claims Relationship Specialty Start Date End Date Jorge Pritchett DO [address] [place] [facility] [address] PCP - General Internal Medicine 04/17/21 Investigator Claims Relationship Specialty Start Date End Date Jorge Pritchett DO [address] [place] [address] PCP - General Internal Medicine 04/17/21 Investigator Claims Relationship Specialty Start Date End Date Jorge Pritchett DO [address] [place] [address] PCP [...] 100 mL IVPB (COMPLETED) 2,000 mg, IntraVENous, SHIRT MAKER TO O.R., 1 dose, On Thu07/15/22 at 1115, Antimicrobial Indications: Surgical Prophylaxis, Administer within 1 hour prior to incision. Repeat in 2 hours after initial dose if still intra-op., Pre-op (day of surgery) 1247 (New Bag - Prov ider: Radha Oliva RN)1300 (Given - Provider: Celeste Valadez APRN - EXTRACTION SUPERVISOR)1317 (Due: Stopped - Provider: Radha Oliva RN) [...] (Paused - Provider: Celeste Valadez APRN - EXTRACTION SUPERVISOR - Comment: Switch to gravity)1249 (Restarted - Provider: Celeste Valadez APRN - EXTRACTION SUPERVISOR)1339 (Stopped - Provider: Celeste Valadez APRN - EXTRACTION SUPERVISOR)1500 (Stopped - Provider: Julissa Campbell RN) PRN [...] 0.9% 100 mL IVPB 3,000 mg, IntraVENous, SHIRT MAKER TO O.R., 1 dose, On Thu11/03/23 at [...] sodium chloride 0.9 % 100 mL IVPB (Bahi1Nze) 1,000 mg, IntraVENous, at 33.3 mL/hr, Administer [...] Thu07/22/24 at 2245 2246 (Given - Provider: eDbra Metz RN) ondansetron (ZOFRAN) injection 4 mg [...] mL IV syringe (COMPLETED) 2,000 mg, IntraVENous, SHIRT MAKER TO O.R., 1 dose, On Thu11/11/24 at [...] (day of surgery) BUPivacaine-EPINEPHrine PF (MARCAINE-w/EPINEPHrine) 0.5% -[id number] injection (CANCELED) PRN, Starting on Thu11/11/24 at [...] BE BASED ON THE PRIMARY CLINICAL RECORDS. [facility]. provides no warranty or guarantee of the accuracy or completeness of information in this document.
[2025-01-31] MEDS: ACETAMINOPHEN 325 MG TABLET 650 MG PO (19:45)
[2025-01-31] MEDS: BISACODYL 5 MG TABLET 10 MG PO (19:46)
--- NOTE | 2025-01-31 20:36 | PC.NURSE ---
Dressing to left leg c/d/i post I/D
[2025-01-31] MEDS: CARVEDILOL 6.25 MG TABLET 3.125 MG PO (21:10)
[2025-01-31] MEDS: TAMSULOSIN HCL 0.4 MG CAPSULE PO (21:10)
[2025-01-31] MEDS: INSULIN ASPART 300 UNIT/3 ML PEN SUBQ (21:12)
[2025-02-01] VITALS (33 sets, daily range): BP systolic 106–137; BP diastolic 58–77; PULSE 48–92; RESP 16; TEMP 36.4–37.2; O2SAT 83–100
--- NOTE | 2025-02-01 | MR_ITS ---
[place] [address] Patient Name: MONICO SANCHEZ MRN: [id number] date: 1960 Sex: M Assigned Patient Location: MS Current Patient Location: MS Accession/Order Number: [id number] Exam Date: 02/01/2025 10:05 Report Date: 02/01/2025 13:50 At the request of: REZA HUTSON MD Procedure: MR foot LT wo con MRI left forefoot Without contrast TECHNIQUE: Multiplanar T1 and T2-weighted imaging of the foot obtained without contrast. HISTORY: Left ankle and left foot pain. Sepsis. Assessment for osteomyelitis or abscess. COMPARISON:None SKIN MARKER: None BONY ALIGNMENT: Adequate BONE INFILTRATION:None BONY LESION: None BONE MARROW EDEMA: None TENDONS: Intact INTRINSIC MUSCLES: Normal signal PLANTAR PLATE: Intact HOLDEN'S NEUROMA: None OSTEOMYELITIS No osteomyelitis SOFT TISSUES: In the dorsum of the foot, there is a region of heterogeneous collection identified. This is well-circumscribed and oval. This measures 1.7 x 2.7 x 1.2 cm. This is superior to the bases of the second and third metatarsals. Consideration for abscess/necrotic tissue. Extensive dorsal soft tissue edema present. MR/MR foot LT wo con Impression: 2.7 cm collection in the dorsum of the foot. Consider abscess/process. Adjacent edema. Consider cellulitis. No osteomyelitis. Impression dictated by: Jeremias Kinney M.D. 02/01/2025 1:50 PM Dictation Location: [place] [address] Electronically authenticated by: [id number] Y Date: 02/01/2025 13:50
[2025-02-01] MEDS: ACETAMINOPHEN 325 MG TABLET 650 MG PO (00:02)
[2025-02-01 05:59] LABS: Anion Gap 15.5; Calcium 8.8 mg/dL (8.5-10.1); Carbon Dioxide 25.2 mmol/L (21.0-32.0); Chloride 100 mmol/L (98-107); Estimated GFR (African America 33 (>=60 mL/min/1.73m^2); Estimated GFR (Non-African Ame 27 (>=60 mL/min/1.73m^2); Glucose 254 mg/dL (74-106); Potassium 3.7 mmol/L (3.5-5.1); Sodium 137 mmol/L (136-145)
[2025-02-01 06:19] LABS: Blood Urea Nitrogen 81.0 mg/dL (7.0-18.0)
[2025-02-01] MEDS: INSULIN ASPART 300 UNIT/3 ML PEN SUBQ ×4 (07:28→21:46)
[2025-02-01] MEDS: FAMOTIDINE 20 MG TABLET PO (08:15)
[2025-02-01] MEDS: DOCUSATE SODIUM 100 MG CAPSULE 200 MG PO ×2 (08:15→21:33)
[2025-02-01] MEDS: CLOPIDOGREL BISULFATE 75 MG TABLET PO (08:15)
[2025-02-01] MEDS: POLYETHYLENE GLYCOL 3350 17 GM POWDER PACKET PO (08:15)
[2025-02-01] MEDS: CARVEDILOL 3.125 MG TABLET PO ×2 (08:15→21:33)
[2025-02-01] MEDS: ALLOPURINOL 100 MG TABLET PO ×2 (08:15→21:33)
[2025-02-01] MEDS: MIDODRINE HCL 5 MG TABLET PO ×3 (08:15→16:33)
[2025-02-01] MEDS: HEPARIN SODIUM (PORCINE) 5,000 UNIT/ML VIAL 5000 UNIT SUBQ ×2 (08:15→16:33)
[2025-02-01] MEDS: ATORVASTATIN CALCIUM 10 MG TABLET PO (08:15)
[2025-02-01] MEDS: INSULIN GLARGINE 300 UNIT/3 ML INSULN.PEN 25 UNIT SQ (08:16)
[2025-02-01] MEDS: ERTAPENEM SODIUM 0.5 GM in 0.9 % SODIUM CHLORIDE 50 ML IV (08:24)
--- NOTE | 2025-02-01 09:14 | CM.NOTE ---
Rounds made with Dr. Bush, discussed with pt plan of care and AM lab work. No discharge today. CM or SW will further discuss discharge planning.
--- NOTE | 2025-02-01 09:35 | XR_ITS ---
[place] [id number] Patient Name: MONICO SANCHEZ MRN: [id number] date: 1960 Sex: M Assigned Patient Location: MS Current Patient Location: MS Accession/Order Number: [id number] Exam Date: 02/01/2025 09:45 Report Date: 02/01/2025 10:31 At the request of: REZA HUTSON MD Procedure: XR chest 1V PORTABLE AP ERECT CHEST 0947 hours CLINICAL HISTORY: Cough COMPARISON: 10/13/2022 There is slight elevation of the right hemidiaphragm. The cardiac and mediastinal contours are similar. There is no vascular congestion. Minor scarring or atelectasis is seen. No developing consolidation is identified. There is no effusion or pneumothorax. The osseous structures are intact. End plate spurring is present at the spine. XR/XR chest 1V IMPRESSION: NO ACUTE FINDINGS Impression dictated by: Yasmine Figueroa M.D. 02/01/2025 10:31 AM Dictation Location: [place] [address] Electronically authenticated by: [id number] Y Date: 02/01/2025 10:31
--- NOTE | 2025-02-01 09:35 | P.PN_ITS ---
Progress Note: Subjective Subjective Interval history: Much improvement of the pain intensity since yesterday. He does not feel dizzy anymore. No chest pain. No abdominal pain. Exam Narrative Exam Narrative: Patient appears to be much more comfortable than yesterday. Less pain and discomfort. The left leg is wrapped from the mid lopez down to the toes. No distress. Chest is clear, heart is regular. Abdomen is soft Constitutional Vital Signs, click to edit/add: Last Vital Signs Temp 97.6 F 02/01/25 07:52 Pulse 52 L 02/01/25 07:52 Resp 18 02/01/25 07:52 BP 134/71 02/01/25 07:52 Pulse Ox 90 L 02/01/25 09:19 O2 Del Method Room Air 02/01/25 09:19 O2 Flow Rate 2 02/01/25 07:52 FiO2 40 02/01/25 03:50 Progress Note: Objective Labs Labs: BMP 02/01/25 04:56 Sodium 137 Potassium 3.7 Chloride 100 Carbon Dioxide 25.2 BUN 81.0 H* Creatinine 2.41 H Glucose 254 H Calcium 8.8 Progress Note: A&P Assessment and Plan (1) Left leg cellulitis: (2) Leg edema, left: (3) CKD stage 4 due to type 2 diabetes mellitus: (4) CAD (coronary artery disease): Qualifiers: Coronary Disease-Associated Artery/Lesion type: [place] artery [place] vs. transplanted heart: [place] heart Associated angina: without angina Qualified Code(s): I25.10 - Atherosclerotic heart disease of [place] coronary artery without angina pectoris (5) HTN (hypertension): Qualifiers: Hypertension type: renovascular hypertension Qualified Code(s): I15.0 - Renovascular hypertension (6) Diabetes: Qualifiers: Diabetes mellitus type: type 2 Diabetes mellitus [employer] insulin use: with senior living use Diabetes mellitus complication status: with kidney complications Diabetes mellitus complication detail: with chronic kidney disease Chronic kidney disease stage: stage 4 (GFR 15-29) Qualified Code(s): E11.22 - Type 2 diabetes mellitus with diabetic chronic kidney disease; N18.4 - Chronic kidney disease, stage 4 (severe); Z79.4 - custodial (current) use of insulin (7) Sepsis: (8) Bacteremia: Plan Severe sepsis present on admission associated with hypotension, borderline septic shock, stabilized. Serratia bacteremia Left ankle and foot cellulitis, cannot exclude the possibility of abscess formation, osteomyelitis and/or septic ankle Patient had received intravenous Ancef. Antibiotic switched to ertapenem to cover Serratia Patient had received 1 vancomycin dose in the emergency room department. Additional vancomycin dose on 01/31 pending culture report. Patient did not receive 30 mL/kg IV fluid infusion due to CKD. Continue to hold diuretics at this time Continue gentle IV fluid infusion Repeat blood culture on 01/31. I requested MRI of the ankle and foot rule out abscess and osteomyelitis also to see if there is any radiological evidence of septic joint. MRI could not be done pending further investigation of his cardiac stent and aortic valve replacement. Status post incision and drainage. Please refer to podiatry procedure note for details. No evidence of septic joint as per Dr. Goyal Acute renal failure CKD stage IV. Acute element over the last 24 hours secondary to sepsis and bacteremia. Rule out ATN. Patient also had urinary retention. More than 1000 mL of urine detected on the bladder scan. Diaz catheter was placed and Hold diuretics Requested UA to see if there is any RBC or protein. UA does not show any RBC or protein to suggest acute glomerulonephritis or ATN. Ultrasound kidney rule out obstructive uropathy. Ultrasound is negative for hydronephrosis or obstructive uropathy Continue Diaz. Urinary retention. More than 1000 mL of retention noted. Diaz catheter was placed and I started patient on Flomax. Continue Flomax Trial of Diaz removal in 5 to 7 days. Urological investigation may be needed this may include but not limited to prostate exam, prostate ultrasound, cystoscopy, urodynamic study to be done in the outpatient setting by urology team. Diabetes Hyperglycemia, poor control Increase Lantus dose to 30 units twice a day Continue long-acting and sliding scale coverage. Titrate to keep blood sugar between 125 and 180. Hypertension. Blood pressure is soft secondary to above. Hold diuretics. Reduce the dose of Coreg. Hold home losartan. IV fluid infusion Avoid aggressive IV fluid infusion due to his CKD and increased risk of fluid overload. Edema of the left leg from the mid calf down to the ankle Requested venous study rule out DVT. Continue heparin for DVT prophylaxis. Pain, severe pain Patient is on Dilaudid and oxycodone. Continue Tylenol. Cannot use NSAID due to NEO/CKD. Cautious use of opiate due to kidney failure. At the same time I do not want patient to suffer. Consider the use of Suboxone. Active sleep apnea. Desaturation while sleeping BiPAP was applied yesterday. His will bring his CPAP machine from home. Functional impairment secondary to acute metabolic issues as listed above specifically related to his left ankle cellulitis. PT OT eval and treatment Patient may qualify to go to a skilled care for short period of time Will discuss with case management. Chronic medical conditions not listed above, incidental findings seen on labs and imaging. These would need to be addressed. Could be addressed when time and condition are appropriate. Could be addressed in the outpatient setting by PCP collaboration with other needed outpatient providers. Urinary Catheter Management Urinary Catheter Management Urethral: Cath placed during this visit: yes Urethral indwelling: No Insertion date: 01/30/25 Insertion time: 13:16
--- NOTE | 2025-02-01 09:53 | SWNOTE1 ---
DINESH received a message from Cezar at [facility]. They are able to accept pt at discharge. Pt will need to bring his own Lymphapress boots to the [facility] to wear. DINESH to let pt's know.
--- NOTE | 2025-02-01 10:05 | MR_ITS ---
The [address] [address] Patient Name: MONICO SANCHEZ MRN: [id number] date: 1960 Sex: M Assigned Patient Location: MS Current Patient Location: MS Accession/Order Number: [id number] Exam Date: 02/01/2025 10:05 Report Date: 02/01/2025 13:55 At the request of: LILIANA CARNEY Procedure: MR ankle LT wo con MRI left ankle without contrast Routine technique. History of cellulitis of the ankle. Assessment for septic arthritis. Extensive cutaneous soft tissue edema with skin thickening consistent with cellulitis. No distinct soft tissue fluid collection to suggest abscess or necrosis. No significant tendon or muscular abnormality. No ligamentous abnormality. No bone marrow edema. No cortical destruction. No linear fracture. MR/MR ankle LT wo con IMPRESSION: Skin thickening with subcutaneous edematous changes consistent with cellulitis. No soft tissue abscess. No findings to suggest septic arthritis. No osteomyelitis. Impression dictated by: Jeremias Kinney M.D. 02/01/2025 1:55 PM Dictation Location: [place] [address] Electronically authenticated by: [id number] Y Date: 02/01/2025 13:55
--- NOTE | 2025-02-01 10:46 | PT.DAILY ---
Physical Therapy Daily Note PT Daily Note/Assess Start: 01/31/25 10:36 Freq: Status: Active Protocol: Document 02/01/25 10:45 CHEMA (Rec: 02/01/25 10:45 CHEMA [id number]) Visit Not Completed Visit Not Completed Visit Not Completed Pt out of room,Other Due to: Other Reason Visit Pt getting MRI at this time. Will follow up at later Not Completed time/date. Physical Therapy Daily Note/Assessment Time In/Time Out Time In 10:45 Time Out 10:45 Pain In Pain N/A Pain Out Pain N/A GG. Functional Abilities and Goals-Complete for Swing Bed Patients Only [id number]. Self-Care [id number]. Mobility
[2025-02-01] MEDS: 0.9 % SODIUM CHLORIDE 1,000 ML 70 ML IV (11:37)
--- NOTE | 2025-02-01 11:40 | ECG_ITS ---
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: : 1960 Requested By: [id number] Order Number: [id number] Reading MD: AMADO YANG Measurements Intervals [employer] Rate: 85 P: MD: 108 QRS: -70 QRSD: 110 T: 234 QT: 349 QTc: 416 Interpretive Statements Probable Sinus rhythm with ventricular premature complexes LATERAL MYOCARDIAL INFARCTION [40+ ms Q WAVE AND/OR ST/T ABNORMALITY IN I/aVL/V5/V6], OF INDETERMINATE AGE INFERIOR MYOCARDIAL INFARCTION [40+ ms Q WAVE AND/OR ST/T ABNORMALITY IN II/aVF], OF INDETERMINATE AGE Compared to ECG 01/30/2025 08:56:39 Incomplete right bundle-branch block no longer present T-wave abnormality no longer present Possible ischemia no longer present Premature ventricular complexes now present Myocardial infarct finding still present Electronically Signed On 02-02-2025 14:01:45 EDT by AMADO YANG
--- NOTE | 2025-02-01 11:42 | PC.NURSE ---
Patient returns from MRI. 3 total assist return to bed. C/O left sided chest pain without radiation. Skin warm and dry. Denies nausea. Dr Bush aware 12 lead EKG ordered. BP 137/77. P 62 and regular. RA SPO2 94%. Chest pain lasts about 2 min and then resolves without intervention
[2025-02-01] MEDS: SENNOSIDES/DOCUSATE SODIUM 1 TAB TABLET PO ×2 (12:00→21:50)
--- NOTE | 2025-02-01 14:30 | SWNOTE1 ---
DINESH stopped in and spoke to pt and pt's , Mary. DINESH let them know [facility] has accepted pt once he is ready for discharge. Franklin at [facility] did request that pt bring in his Lymphap[employer] boots to [facility] when he goes over there. Pt also has cpap and will need to take that over as well. Pt and voiced understanding.
--- NOTE | 2025-02-01 14:34 | SWNOTE1 ---
DINESH faxed over physician note from today, PT/OT, vitals, labs, imaging, and nursing notes to [facility].
--- NOTE | 2025-02-01 15:03 | PT.DAILY ---
Physical Therapy Daily Note PT Daily Note/Assess Start: 01/31/25 10:36 Freq: Status: Active Protocol: Document 02/01/25 15:01 CHEMA (Rec: 02/01/25 15:03 CHEMA [id number]) Visit Not Completed Visit Not Completed Visit Not Completed Nursing request to hold,Other Due to: Other Reason Visit Nursing stops LEAD RECOVERER as entering room. States she just got Not Completed pt back to bed from recliner and he wishes to rest. LEAD RECOVERER asks pt and he agrees, he wishes to rest at this time. He just got comfortable. Will follow up tomorrow. Physical Therapy Daily Note/Assessment Time In/Time Out Time In 14:56 Time Out 14:59 Pain In Pain N/A Pain Out Pain N/A GG. Functional Abilities and Goals-Complete for Swing Bed Patients Only [id number]. Self-Care [id number]. Mobility
[2025-02-01] MEDS: TAMSULOSIN HCL 0.4 MG CAPSULE PO (21:33)
[2025-02-01] MEDS: BISACODYL 5 MG TABLET 10 MG PO (21:33)
[2025-02-01] MEDS: INSULIN GLARGINE 300 UNIT/3 ML INSULN.PEN 30 UNIT SQ (21:47)
[2025-02-01] MEDS: NYSTATIN 15 GM POWDER 1 APPLIC TOPICAL ×2 (21:49)
[2025-02-02] VITALS (26 sets, daily range): BP systolic 119–164; BP diastolic 54–78; PULSE 57–87; TEMP 36.6–37.2; O2SAT 86–100
[2025-02-02] MEDS: ACETAMINOPHEN 325 MG TABLET 650 MG PO ×5 (00:04→23:23)
[2025-02-02] MEDS: HEPARIN SODIUM (PORCINE) 5,000 UNIT/ML VIAL 5000 UNIT SUBQ ×4 (00:06→23:24)
[2025-02-02] MEDS: NYSTATIN 15 GM POWDER 1 APPLIC TOPICAL ×3 (06:02→21:27)
[2025-02-02 06:20] LABS: Hematocrit 29.8 % (42.0-54.0); Hemoglobin 9.9 g/dL (14.0-18.0); Mean Corpuscular HGB Conc 33.2 g/dL (29.9-35.2); Mean Corpuscular Hemoglobin 29.6 pg (25.9-34.0); Mean Corpuscular Volume 89.2 fL (80.0-94.0); Platelet Count 262 10^3/uL (150-450); Red Blood Count 3.34 10^6/uL (4.70-6.10); White Blood Count 21.0 10^3/uL (4.0-11.0)
[2025-02-02 06:33] LABS: Anion Gap 12.6; Calcium 8.6 mg/dL (8.5-10.1); Carbon Dioxide 26.2 mmol/L (21.0-32.0); Chloride 99 mmol/L (98-107); Estimated GFR (African America 38 (>=60 mL/min/1.73m^2); Estimated GFR (Non-African Ame 31 (>=60 mL/min/1.73m^2); Glucose 287 mg/dL (74-106); Potassium 3.8 mmol/L (3.5-5.1); Sodium 134 mmol/L (136-145)
[2025-02-02 06:44] LABS: Blood Urea Nitrogen 79.0 mg/dL (7.0-18.0)
--- NOTE | 2025-02-02 08:15 | CM.NOTE ---
Rounds made with Dr. Bush, plan of care discussed with pt. Dr. Bush discussed, labs and blood cultures. No discharge today, CM or SW will continue to discuss skilled care at discharge with pt.
[2025-02-02] MEDS: INSULIN ASPART 300 UNIT/3 ML PEN SUBQ ×4 (08:43→21:33)
[2025-02-02] MEDS: INSULIN GLARGINE 300 UNIT/3 ML INSULN.PEN 30 UNIT SQ ×2 (08:44→21:33)
[2025-02-02] MEDS: ALLOPURINOL 100 MG TABLET PO ×2 (08:53→21:28)
[2025-02-02] MEDS: MIDODRINE HCL 5 MG TABLET PO (08:53)
[2025-02-02] MEDS: CLOPIDOGREL BISULFATE 75 MG TABLET PO (08:54)
[2025-02-02] MEDS: DOCUSATE SODIUM 100 MG CAPSULE 200 MG PO ×2 (08:54→21:28)
[2025-02-02] MEDS: CARVEDILOL 3.125 MG TABLET PO (08:55)
[2025-02-02] MEDS: ATORVASTATIN CALCIUM 10 MG TABLET PO (08:55)
[2025-02-02] MEDS: FAMOTIDINE 20 MG TABLET PO (08:55)
[2025-02-02] MEDS: ERTAPENEM SODIUM 0.5 GM in 0.9 % SODIUM CHLORIDE 50 ML IV (08:57)
--- NOTE | 2025-02-02 11:40 | PM.PN ---
Progress Note: Subjective Subjective Interval history: Much improvement of the pain intensity since yesterday. He does not feel dizzy anymore. No chest pain. No abdominal pain. Exam Narrative Exam Narrative: Patient appears to be much more comfortable than yesterday. Less pain and discomfort. The left leg is wrapped from the mid lopez down to the toes. No distress. Chest is clear, heart is regular. Abdomen is soft Constitutional Vital Signs, click to edit/add: Last Vital Signs Temp 97.8 F 02/02/25 11:00 Pulse 85 02/02/25 11:00 Resp 20 02/02/25 11:00 BP 145/78 H 02/02/25 11:11 Pulse Ox 97 02/02/25 11:00 O2 Del Method Nasal Cannula 02/02/25 11:00 O2 Flow Rate 2 02/02/25 11:00 FiO2 40 02/02/25 07:49 Progress Note: Objective Labs Labs: Short CBC 02/02/25 Range/Units 05:39 WBC 21.0 H (4.0-11.0) 10^3/uL Hgb 9.9 L (14.0-18.0) g/dL Hct 29.8 L (42.0-54.0) % Plt Count 262 (150-450) 10^3/uL BMP 02/02/25 05:39 Sodium 134 L Potassium 3.8 Chloride 99 Carbon Dioxide 26.2 BUN 79.0 H* Creatinine 2.13 H Glucose 287 H Calcium 8.6 Progress Note: A&P Assessment and Plan (1) Left leg cellulitis: (2) Leg edema, left: (3) CKD stage 4 due to type 2 diabetes mellitus: (4) CAD (coronary artery disease): Qualifiers: Coronary Disease-Associated Artery/Lesion type: [place] artery [place] vs. transplanted heart: [place] heart Associated angina: without angina Qualified Code(s): I25.10 - Atherosclerotic heart disease of [place] coronary artery without angina pectoris (5) HTN (hypertension): Qualifiers: Hypertension type: renovascular hypertension Qualified Code(s): I15.0 - Renovascular hypertension (6) Diabetes: Qualifiers: Diabetes mellitus type: type 2 Diabetes mellitus [facility] insulin use: with [facility] use Diabetes mellitus complication status: with kidney complications Diabetes mellitus complication detail: with chronic kidney disease Chronic kidney disease stage: stage 4 (GFR 15-29) Qualified Code(s): E11.22 - Type 2 diabetes mellitus with diabetic chronic kidney disease; N18.4 - Chronic kidney disease, stage 4 (severe); Z79.4 - senior living (current) use of insulin (7) Sepsis: (8) Bacteremia: Plan Severe sepsis present on admission associated with hypotension, borderline septic shock, stabilized. Serratia bacteremia Left ankle and foot cellulitis, cannot exclude the possibility of abscess formation, osteomyelitis and/or septic ankle, status post incision and drainage. Patient had received intravenous Ancef. Antibiotic switched to ertapenem to cover Serratia Patient had received 1 vancomycin dose in the emergency room department. Additional vancomycin dose on 01/31 and on 02/02 pending culture report. Dose adjusted for NEO Patient did not receive 30 mL/kg IV fluid infusion due to CKD. Continue to hold diuretics at this time Completed IV fluid infusion. Blood pressure is stabilizing. Repeat blood culture on 01/31. Result is pending. I requested MRI of the ankle and foot rule out abscess and osteomyelitis also to see if there is any radiological evidence of septic joint. MRI could not be done pending further investigation of his cardiac stent and aortic valve replacement. Status post incision and drainage. Please refer to podiatry procedure note for details. No evidence of septic joint as per Dr. Goyal Acute renal failure CKD stage IV. Acute element over the last 24 hours secondary to sepsis and bacteremia. Rule out ATN. Patient also had urinary retention. More than 1000 mL of urine detected on the bladder scan. Diaz catheter was placed and Continue to hold diuretics Kidney function reached baseline which is consistent with stage IV Requested UA to see if there is any RBC or protein. UA does not show any RBC or protein to suggest acute glomerulonephritis or ATN. Ultrasound kidney rule out obstructive uropathy. Ultrasound is negative for hydronephrosis or obstructive uropathy Continue Diaz. Urinary retention. More than 1000 mL of retention noted. Diaz catheter was placed and I started patient on Flomax. Continue Flomax Trial of Diaz removal in 3-5 days. Urological investigation may be needed this may include but not limited to prostate exam, prostate ultrasound, cystoscopy, urodynamic study to be done in the outpatient setting by urology team. Diabetes Hyperglycemia, fair control Increase Lantus dose to 30 units twice a day Continue long-acting and sliding scale coverage. Titrate to keep blood sugar between 125 and 180. Hypertension. Blood pressure is soft secondary to above. Hold diuretics. Reduce the dose of Coreg. Hold home losartan. IV fluid infusion Avoid aggressive IV fluid infusion due to his CKD and increased risk of fluid overload. Edema of the left leg from the mid calf down to the ankle Requested venous study rule out DVT. Continue heparin for DVT prophylaxis. Pain, severe pain Patient is on Dilaudid and oxycodone. Continue Tylenol. Cannot use NSAID due to NEO/CKD. Cautious use of opiate due to kidney failure. At the same time I do not want patient to suffer. Consider the use of Suboxone. Active sleep apnea. Desaturation while sleeping BiPAP was applied yesterday. His will bring his CPAP machine from home. Functional impairment secondary to acute metabolic issues as listed above specifically related to his left ankle cellulitis. PT OT eval and treatment Patient may qualify to go to a skilled care for short period of time Will discuss with case management. Chronic medical conditions not listed above, incidental findings seen on labs and imaging. These would need to be addressed. Could be addressed when time and condition are appropriate. Could be addressed in the outpatient setting by PCP collaboration with other needed outpatient providers. Urinary Catheter Management Urinary Catheter Management Urethral: Cath placed during this visit: yes Urethral indwelling: No Insertion date: 01/30/25 Insertion time: 13:16
--- NOTE | 2025-02-02 11:50 | REH.PTDLY ---
Physical Therapy Daily Note PT Daily Note/Assess Start: 01/31/25 10:36 Freq: Status: Active Protocol: Document 02/02/25 11:41 [id number] (Rec: 02/02/25 11:50 KSTEINLE [id number]) Physical Therapy Daily Note/Assessment Time In 11:15 Time Out 11:40 Subjective Pt in bed with nursing in room upon arrival. Pt wanting to take a nap, but agreeable to therapy first. No pain while lying still in bed pt states. Had pain in bottom and back yesterday about 15-20 mins after sitting in recliner. Pt prefers to not get back in recliner. Therapeutic Exercise 10 Minutes (minutes) Therapeutic Exercise 1 Units Therapeutic Exercise Instructed in B LE supine exs 10x ea with AA on L LE Treatment for improved mobility and strength. Exs included AP, QS , GS, SLR, heel slides, and hip abd slides. Once seated pt performs LAQ, marching, and abd step outs. Therapeutic Activity 13 Minutes (minutes) Therapeutic Activity 1 Units Therapeutic Activity Max A x1 for supine to sit transfers with several Comments verbal cues needed and pauses due to discomfort in scrotum pt states. Some discomfort in L calf as well. Min A for pt to scoot forward so feet are on floor once sitting. Pt sat bedside unsupported with no LOB. OT enters room. Sit to stand transfers Mod A x2 with cues for proper weight bearing on L foot (limited to light pressure on heel only for balance)cues for pt to shift weight to R side. Cues for pt to side step or shuffle to HOB. Pt pivots R foot back and forth to help advance . Pt does take 2 very small side steps, but cues needed for proper weight bearing. Care left with OT post rx. Total Therapy 23 Minutes Total Physical 2 Therapy Units Daily Note Summary Pt fatigued during rx with exs and transfers. Requires some encouragement. Pt complains of discomfort at times in L LE as well as scrotum area with transfers. Pt needs Mod-Max A x 1-2 with transfers due to weakness and limited weight bearing on L LE. Pt will need SNF stay at [place] to help regain strength and mobility.
[2025-02-02] MEDS: MAGNESIUM HYDROXIDE 2,400 MG/10 ML ORAL.SUSP 2400 MG PO (12:16)
[2025-02-02] MEDS: MIDODRINE HCL 5 MG TABLET 2.5 MG PO ×2 (12:17→16:07)
--- NOTE | 2025-02-02 13:25 | SWNOTE1 ---
Pt is not medically stable for discharge today. DINESH faxed physician note, PT/OT, labs, any updated imaging, nursing note, and vitals to Pradeep at the [facility].
--- NOTE | 2025-02-02 13:56 | CM.NOTE ---
2nd Important message from Medicare discussed with pt, pt denies any questions or concerns.
[2025-02-02] MEDS: VANCOMYCIN HCL 1,250 MG in 0.9 % SODIUM CHLORIDE 250 ML 166.667 MG IV (14:00)
[2025-02-02] MEDS: OXYCODONE HCL 5 MG TABLET 2.5 MG PO (19:28)
[2025-02-02] MEDS: BISACODYL 5 MG TABLET 10 MG PO (21:28)
[2025-02-02] MEDS: SENNOSIDES/DOCUSATE SODIUM 1 TAB TABLET PO (21:28)
[2025-02-02] MEDS: CARVEDILOL 3.125 MG TABLET 6.25 MG PO (21:28)
[2025-02-02] MEDS: TAMSULOSIN HCL 0.4 MG CAPSULE PO (23:24)
[2025-02-03] VITALS (19 sets, daily range): BP systolic 138–146; BP diastolic 51–73; PULSE 66–109; TEMP 36.6–37; O2SAT 91–99
[2025-02-03] MEDS: NYSTATIN 15 GM POWDER 1 APPLIC TOPICAL ×3 (05:00→21:33)
[2025-02-03 06:03] LABS: Hematocrit 30.6 % (42.0-54.0); Hemoglobin 10.4 g/dL (14.0-18.0); Mean Corpuscular HGB Conc 34.0 g/dL (29.9-35.2); Mean Corpuscular Hemoglobin 30.5 pg (25.9-34.0); Mean Corpuscular Volume 89.7 fL (80.0-94.0); Platelet Count 288 10^3/uL (150-450); Red Blood Count 3.41 10^6/uL (4.70-6.10); White Blood Count 16.2 10^3/uL (4.0-11.0)
[2025-02-03 06:16] LABS: Anion Gap 11.8; Calcium 8.6 mg/dL (8.5-10.1); Carbon Dioxide 27.1 mmol/L (21.0-32.0); Chloride 100 mmol/L (98-107); Estimated GFR (African America 41 (>=60 mL/min/1.73m^2); Estimated GFR (Non-African Ame 34 (>=60 mL/min/1.73m^2); Glucose 265 mg/dL (74-106); Potassium 3.9 mmol/L (3.5-5.1); Sodium 135 mmol/L (136-145)
[2025-02-03 06:18] LABS: Blood Urea Nitrogen 76.0 mg/dL (7.0-18.0)
--- NOTE | 2025-02-03 08:10 | CM.NOTE ---
Rounds made with Dr. Bush, discussed plan of care with pt. Pt will discharge to [facility] for skilled therapy when medically stable.
[2025-02-03] MEDS: HEPARIN SODIUM (PORCINE) 5,000 UNIT/ML VIAL 5000 UNIT SUBQ (09:02)
[2025-02-03] MEDS: FAMOTIDINE 20 MG TABLET PO (09:02)
[2025-02-03] MEDS: CLOPIDOGREL BISULFATE 75 MG TABLET PO (09:02)
[2025-02-03] MEDS: CARVEDILOL 6.25 MG TABLET PO ×2 (09:02→21:29)
[2025-02-03] MEDS: ATORVASTATIN CALCIUM 10 MG TABLET PO (09:02)
[2025-02-03] MEDS: ALLOPURINOL 100 MG TABLET PO ×2 (09:03→21:29)
[2025-02-03] MEDS: INSULIN ASPART 300 UNIT/3 ML PEN SUBQ ×4 (09:03→21:35)
[2025-02-03] MEDS: DOCUSATE SODIUM 100 MG CAPSULE 200 MG PO ×2 (09:03→21:28)
[2025-02-03] MEDS: INSULIN GLARGINE 300 UNIT/3 ML INSULN.PEN 35 UNIT SQ ×2 (09:04→21:34)
[2025-02-03] MEDS: OXYCODONE HCL 5 MG TABLET 2.5 MG PO ×3 (09:12→21:32)
[2025-02-03] MEDS: ERTAPENEM SODIUM 0.5 GM in 0.9 % SODIUM CHLORIDE 50 ML IV (09:13)
--- NOTE | 2025-02-03 10:22 | CM.NOTE ---
Spoke with Dr. Goyal regarding drsg change and discharge. Ok with discharge to [facility] and order received for drsg change.
--- NOTE | 2025-02-03 10:42 | P.PN_ITS ---
Progress Note: Subjective Subjective Interval history: Much improvement of the pain intensity since yesterday. He does not feel dizzy anymore. No chest pain. No abdominal pain. Patient continues to be constipated. No bowel movement for 5 days. Exam Narrative Exam Narrative: Patient appears to be much more comfortable than yesterday. Less pain and discomfort. The left leg is wrapped from the mid lopez down to the toes. No distress. Chest is clear, heart is regular. Abdomen is soft Constitutional Vital Signs, click to edit/add: Last Vital Signs Temp 97.9 F 02/03/25 07:52 Pulse 75 02/03/25 10:00 Resp 20 02/03/25 07:52 BP 138/73 02/03/25 07:52 Pulse Ox 99 02/03/25 10:00 O2 Del Method Nasal Cannula 02/03/25 09:13 O2 Flow Rate 2 02/03/25 09:13 FiO2 40 02/02/25 07:49 Progress Note: Objective Labs Labs: Short CBC 02/03/25 Range/Units 05:06 WBC 16.2 H (4.0-11.0) 10^3/uL Hgb 10.4 L (14.0-18.0) g/dL Hct 30.6 L (42.0-54.0) % Plt Count 288 (150-450) 10^3/uL BMP 02/03/25 05:06 Sodium 135 L Potassium 3.9 Chloride 100 Carbon Dioxide 27.1 BUN 76.0 H* Creatinine 1.99 H Glucose 265 H Calcium 8.6 Progress Note: A&P Assessment and Plan (1) Left leg cellulitis: (2) Leg edema, left: (3) CKD stage 4 due to type 2 diabetes mellitus: (4) CAD (coronary artery disease): Qualifiers: Coronary Disease-Associated Artery/Lesion type: nez perce artery Nikolski vs. transplanted heart: nez perce heart Associated angina: without angina Qualified Code(s): I25.10 - Atherosclerotic heart disease of nez perce coronary artery without angina pectoris (5) HTN (hypertension): Qualifiers: Hypertension type: renovascular hypertension Qualified Code(s): I15.0 - Renovascular hypertension (6) Diabetes: Qualifiers: Diabetes mellitus type: type 2 Diabetes mellitus retirement insulin use: with retirement use Diabetes mellitus complication status: with kidney complications Diabetes mellitus complication detail: with chronic kidney disease Chronic kidney disease stage: stage 4 (GFR 15-29) Qualified Code(s): E11.22 - Type 2 diabetes mellitus with diabetic chronic kidney disease; N18.4 - Chronic kidney disease, stage 4 (severe); Z79.4 - 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 (7) Sepsis: (8) Bacteremia: Plan Severe sepsis present on admission associated with hypotension, borderline septic shock, stabilized. Serratia bacteremia Left ankle and foot cellulitis, cannot exclude the possibility of abscess formation, osteomyelitis and/or septic ankle, status post incision and drainage. Patient had received intravenous Ancef. Antibiotic switched to ertapenem to cover Serratia Serratia came back sensitive to ceftriaxone. Switching ertapenem to ceftriaxone. Patient had received 1 vancomycin dose in the emergency room department. Additional vancomycin dose on 01/31 and on 02/02 pending culture report. Dose adjusted for NEO Patient did not receive 30 mL/kg IV fluid infusion due to CKD. Continue to hold diuretics at this time Completed IV fluid infusion. Blood pressure is stabilizing. Repeat blood culture on 01/31. Result is pending. I requested MRI of the ankle and foot rule out abscess and osteomyelitis also to see if there is any radiological evidence of septic joint. MRI could not be done pending further investigation of his cardiac stent and aortic valve replacement. Status post incision and drainage. Please refer to podiatry procedure note for details. No evidence of septic joint as per Dr. Goyal Acute renal failure, resolved CKD stage IV. Kidney function is approaching baseline. Acute element over the last 24 hours secondary to sepsis and bacteremia. Rule out ATN. Patient also had urinary retention. More than 1000 mL of urine detected on the bladder scan. Diaz catheter was placed Continue to hold diuretics Kidney function reached baseline which is consistent with stage IV Requested UA to see if there is any RBC or protein. UA does not show any RBC or protein to suggest acute glomerulonephritis or ATN. Ultrasound kidney rule out obstructive uropathy. Ultrasound is negative for hydronephrosis or obstructive uropathy Continue Diaz. Urinary retention. More than 1000 mL of retention noted. Diaz catheter was placed and I started patient on Flomax. Continue Flomax Trial of Diaz removal in 3-5 days. Urological investigation may be needed this may include but not limited to prostate exam, prostate ultrasound, cystoscopy, urodynamic study to be done in the outpatient setting by urology team. Diabetes Hyperglycemia, fair control Increase Lantus dose to 30 units twice a day Continue long-acting and sliding scale coverage. Titrate to keep blood sugar between 125 and 180. Hypertension. Blood pressure is soft secondary to above. Hold diuretics. Reduce the dose of Coreg. Hold home losartan. IV fluid infusion Avoid aggressive IV fluid infusion due to his CKD and increased risk of fluid overload. Edema of the left leg from the mid calf down to the ankle Requested venous study rule out DVT. Continue heparin for DVT prophylaxis. Pain, severe pain Patient is on Dilaudid and oxycodone. Continue Tylenol. Cannot use NSAID due to NEO/CKD. Cautious use of opiate due to kidney failure. At the same time I do not want patient to suffer. Consider the use of Suboxone. Active sleep apnea. Desaturation while sleeping BiPAP was applied yesterday. His will bring his CPAP machine from home. Constipation, probable ileus secondary to acute illness as well as the use of opiates. Continue stool softeners and stimulant. Added 1 dose of Relistor and 3 doses of Reglan. Functional impairment secondary to acute metabolic issues as listed above specifically related to his left ankle cellulitis. PT OT eval and treatment Patient may qualify to go to a skilled care for short period of time Will discuss with case management. Chronic medical conditions not listed above, incidental findings seen on labs and imaging. These would need to be addressed. Could be addressed when time and condition are appropriate. Could be addressed in the outpatient setting by PCP collaboration with other needed outpatient providers. Urinary Catheter Management Urinary Catheter Management Urethral: Cath placed during this visit: yes Urethral indwelling: No Insertion date: 01/30/25 Insertion time: 13:16
[2025-02-03] MEDS: MAGNESIUM HYDROXIDE 2,400 MG/10 ML ORAL.SUSP 2400 MG PO (11:05)
[2025-02-03] MEDS: ENOXAPARIN SODIUM 40 MG/0.4 ML SYRINGE SUBQ (11:05)
[2025-02-03] MEDS: METHYLNALTREXONE BROMIDE 12 MG/0.6 ML VIAL SUBQ (11:09)
--- OUTSIDE RECORDS SUMMARY | 2025-02-03 11:16 | XMS_ITS | Clinical Summary ---
Author Organization [facility] Address [address] [place] [address] Care Team Providers Care Refractory Specialist Name Role Phone Unavailable Primary Care Provider [...]
--- OUTSIDE RECORDS SUMMARY | 2025-02-03 11:16 | XMS_ITS | Encounter Summary ---
Author Organization [facility] Address [address] [facility], [address] [place] [address] Care Team Providers Care Sheltered Workshop Worker Name Role Phone Kelby Warner DO Primary Care Provider Encounter Details Date Type Department Care Team (Late st Contact Info) Description 02/01/[address] [place] [address] Octavio Lozada MD [address] [facility] [address] [place] [address] Social History Tobacco Use Types Packs/Day Years [...] Description 03/15/2025 1:30 PM EDT Office Visit [facility] VASCULAR Part [address] [facility] [place] [address] Marvin Nielson MD [address] [place] [address] Dr [address] [facility] [place] [address] F/U from 09/14/24 04/12/2025 2:30 PM EST Office Visit [facility] Part [address] [place] [address] Jeb Dyer, PA-C [address] [place] [address] Dr [address] [place], [place] [id number] 6M pvr 04/27/2025 1:40 PM EST Office Visit [facility] Part of [address] [address] Alma Kan MD [address] [place] [address] [place] [address] 6 month 07/12/2025 1:00 PM EST Pharmacy Visit [facility] Medication Management [address] [place] [phone] Heart Failure FU- 6month follow-up 10/09/2025 1:00 PM EDT Office Visit [facility] Part [address] [place] [address] Jeb Dyer, PA-C [address] [place] [address] Dr [address] [place] [address] 1Y psa documented as of this encounter [...] documented as of this encounter Care Teams Sheltered Workshop Worker Relationship Specialty Start Date End Date Kelby Warner DO [address] [place] [address] PCP - General Internal Medicine 04/17/21 documented as of this encounter
--- OUTSIDE RECORDS SUMMARY | 2025-02-03 11:16 | XMS_ITS | Encounter Summary ---
Author Organization [facility] 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) Procedures Vascular duplex lower extremity arteries bilateral Kelby Warner DO [address] [place] [address] Phone: tel: fax: Referral ID Status Reason Start Date Expiration Date V isits Requested Visits Authorized [id number] Not Required - RTA 02/07/2024 02/06/2025 1 1 Encounter Details Date Type Department Care Team (Latest Contact Info) Description 02/07/2024 Transcribe Orders [facility] [address] [place] [address] Kelby Warner DO [address] [facility] [place] [address] Peripheral vascular disease, unspecified (Primary [...] Description 03/15/2025 1:30 PM EDT Office Visit [facility] VASCULAR Part [address] [place] [address] Marvin Nielson MD [address] [place] [address] [address] [place] [address] F/U from 09/14/24 04/12/2025 2:30 PM EST Office Visit [facility] UROLOGY Part of [address] [place] [address] Jeb Dyer, PA-C [address] [place] [address] [address] [place] [address] 6M pvr 04/27/2025 1:40 PM EST Office Visit [facility] CARDIOLOGY [facility] [address] [place] [address] Alma Kan MD [address] [place] [address] 6 month 07/12/2025 1:00 PM EST Pharmacy Visit [facility] Medication Management [address] [place] [address] Heart Failure FU- 6month follow-up 10/09/2025 1:00 PM EDT Office Visit [facility] UROLOGY [facility] [address] [facility] [address] [place] [address] Jeb Dyer, PA-C [address] [facility] [address] [place] [address] 1Y psa Scheduled Orders Name [...] documented as of this encounter Care Teams Report Checker Relationship Specialty Start Date End Date Kelby Warner DO [address] [facility] [place] [phone] PCP - General Internal Medicine 04/17/21 documented as of this encounter
--- OUTSIDE RECORDS SUMMARY | 2025-02-03 11:16 | XMS_ITS | Encounter Summary ---
Author Organization [facility] Address [address] [facility], [address] [place] [address] Care Team Providers Care Sustainability Coordinator Name Role Phone Kelby Warner DO Primary Care Provider Encounter Details Date Type Department Care Team (Late st Contact Info) Description 01/23/2021 Abstract [facility] UROLOGY Part of [address] [place] [address] Akira Ferrer MD [address] [place] [address], [address] [place] [address] Social History Tobacco Use Types [...] Description 03/15/2025 1:30 PM EDT Office Visit [facility] VASCULAR Part [address] [place] [address] Marvin Nielson MD [address] [place] [address] Dr [address] [place] [address] F/U from 09/14/24 04/12/2025 2:30 PM EST Office Visit [facility] UROLOGY [address] [place] [address] Jeb Dyer, PA-C [address] [place] [address] Dr [address] [place], [place] [phone] 6M pvr 04/27/2025 1:40 PM EST Office Visit [facility] CARDIOLOGY Part [address] [address] Alma Kan MD [address] [place] [address] [place] [address] 6 month 07/12/2025 1:00 PM EST Pharmacy Visit [facility] Medication Management [address] [place] [phone] Heart Failure FU- 6month follow-up 10/09/2025 1:00 PM EDT Office Visit [facility] UROLOGY [address] [place] [address] Jeb Dyer, PA-C [address] [place] [address] [address] [place], [place] [id number] 1Y psa documented as of this encounter [...] documented as of this encounter Care Teams Sustainability Coordinator Relationship Specialty Start Date End Date Kelby Warner DO [address] [place] [address] PCP - General Internal Medicine 04/17/21 documented as of this encounter
--- OUTSIDE RECORDS SUMMARY | 2025-02-03 11:16 | XMS_ITS | Encounter Summary ---
Author Organization [facility] Address [address] [place] [address] Care Team Providers Care Octave Board Assembler Name Role Phone Kelby Warner DO Primary Care Provider Encounter Details Date Type Department Care Team (Late st Contact Info) Description 02/14/2023 Abstract [facility] [address] [place] [phone] Phoenix Cochran DPM [address] [place], [place] [phone] Social History Tobacco Use Types Packs/Day Years [...] Procedure Visit [facility] [address] [place] [address] Phoenix Cochran, DPM [address] [place], [place] [phone] documented as of this encounter Visit Diagnoses Not on filedocumented in this encounter Care Teams Octave Board Assembler Relationship Specialty Start Date End Date Kelby Warner DO [address] [place] [address] PCP - General Internal Medicine 02/13/23 documented as of this encounter
--- OUTSIDE RECORDS SUMMARY | 2025-02-03 11:16 | XMS_ITS | Encounter Summary ---
Author Organization [facility] 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, unspecified laterality, with unspecified presence of clinical manifestation Procedures VL LOWER EXTREMITY ARTERIAL SEGMENTAL PRESSURES W PPG Kelby Warner DO [address] [facility] [place] [address] Phone: tel: fax: Referral ID Status Reason Start Date Expiration Date Visits Re quested Visits Authorized [id number] Closed 04/17/2021 04/17/2022 1 1 Encounter Details Date Type Department Care Team (Latest Contact Info) Description 04/17/2021 Transcribe [facility] [address] [place] [address] Kelby Warner DO [address] [facility] [place] [address] 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, unspecified laterality, with [...] Description 03/15/2025 1:30 PM EDT Office Visit [facility] VASCULAR Part [address] [place] [address] Marvin Nielson MD [address] [place] [address] Dr [address] [place] [address] F/U from 09/14/24 04/12/2025 2:30 PM EST Office Visit [facility] UROLOGY Part of [address] [place] [address] Jeb Dyer PA-C [address] [place] [address] [address] [place] [address] 6M pvr 04/27/2025 1:40 PM EST Office Visit [facility] CARDIOLOGY Part of [address] [address] Alma Kan MD [address] [place] [address] [place] [address] 6 month 07/12/2025 1:00 PM EST Pharmacy Visit [facility] Medication Management [address] [place] [address] Heart Failure FU- 6month follow-up 10/09/2025 1:00 PM EDT Office Visit [facility] UROLOGY Part of [facility] [address] [facility] [address] [place] [address] Jeb Dyer PA-C [address] [facility] [address] [place] [address] 1Y psa documented as of this encounter Results * VL LOWER EXTREMITY ARTERIAL SEGMENTAL PRESSURES W PPG (04/30/2021 12:03 PM EST) Anatomical Region Laterality Modality Vascular Vascular Ultraso und 04/30/2021 11:3 1 AM EST Narrative 04/30/2021 12:21 PM EST [facility] Vascular Lower Arterial Plethysmography Procedure Patient Name LAURA MARC Date of Study 04/30/2021 A Date of 1960 Gender Male Age 60 year(s) Race Room Number Corporate ID [id number] # Patient Acct [id number] # MR # [id number] Maintenance Painter Apprentice Citlali Sanchez RVT Interpreting Physician Cleve Encinas MD Referring Referring Physician CHERYL NEWMAN Nurse Practitioner Additional Comments Please fax results to [phone]. Procedure Type of Study: Extremities Arteries: Lower Arterial Plethysmography, PVR Lower. Patient Status:Out Patient. Technical Quality:Adequate visualization. Comments:INDICATIONS: Atherosclerosis of little traverse artery of extremity I70.209. Simultaneous real time [...] Procedure Note Cleve Encinas MD - 04/30/2021 [facility] Vascular Lower Arterial Plethysmography Procedure Patient Name LAURA MARC Date of Study 04/30/2021 A Date of 1960 Gender Male Age 60 year(s) Race Room Number Corporate ID [id number] # Patient Acct [id number] # MR # [id number] Maintenance Painter Apprentice Citlali Sanchez, Elizabeth Interpreting Physician Cleve Encinas MD Referring Referring Physician CHERYL NEWMAN Nurse Practitioner Additional Comments Please fax results to [phone]. Procedure Type of Study: Extremities Arteries: Lower Arterial Plethysmography, PVR Lower. Patient Status:Out Patient. Technical Quality:Adequate visualization. Comments:INDICATIONS: Atherosclerosis of little traverse artery of ngpxzutmgY85.209. 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
--- OUTSIDE RECORDS SUMMARY | 2025-02-03 11:16 | XMS_ITS | Encounter Summary ---
Author Organization [facility] Address [address] [facility] [place] [address] Care Team Providers Care Sales Training Coordinator Name Role Phone Kelby Warner DO Primary Care Provider [phone] Reason for Referral * Outpatient Service (Routine) - Closed Specialty Diagnoses / Procedures Referred By Contac t Referred To Contact Cardiology Diagnoses Chest pain, unspecified type R07.9 (ICD-10-CM) - Chest pain, unspecified type Procedures Cardiac Stress Test - w/Pharm CHG MYOCARDIAL SPECT MULTIPLE STUDIES 46700 - CHG MYOCARDIAL SPECT MULTIPLE STUDIES Kelby Warner DO [address] [facility] [place] [address] Phone: tel: fax: Referral ID Status Reason Start Date Expiration Date Visits Re quested Visits Authorized [id number] Closed 04/22/2021 06/06/2021 2 2 Encounter Details Date Type Department Care Team (Latest Contact Info) Description 04/17/2021 Transcribe Orders [facility] PRE-ACCESS [address] [place] [address] Kelby Warner DO [address] [facility] [place] [address] Chest pain, unspecified type (Primary Dx) [...] Office Visit [facility] VASCULAR Part [address] [place] [address] Marvin Nielson MD [address] [place] [address] [address] [place] [address] F/U from 09/14/24 04/12/2025 2:30 PM EST Office Visit [facility] UROLOGY Part [address] [place] [address] Jeb Dyer PAGeremiasC [address] [place] [address] [address] [place] [address] 6M pvr 04/27/2025 1:40 PM EST Office Visit [facility] CARDIOLOGY Part [address] [address] Alma Kan MD [address] [place] [address] [place] [address] 6 month 07/12/2025 1:00 PM EST Pharmacy Visit [facility] Medication Management [address] [place] [address] Heart Failure FU- 6month follow-up 10/09/2025 1:00 PM EDT Office Visit [facility] UROLOGY Part of [address] [place] [address] Jeb Dyer PAGeremiasC [address] [place] [address] [address] [place] [address] 1Y psa documented as of this encounter Results * Cardiac Stress Test - w/Pharm (04/30/2021 11:59 PM EST) Narrative Procedure Note Phoenix Brito MD - 04/30/2021 11:59 PM EST [address] [address] CARDIAC STRESS TEST PATIENT NAME: PIOTR KERR : 1960 MED REC NO: [id number] ROOM: ACCOUNT NO: [id number] ADMIT DATE: 04/30/2021 PROVIDER: Phoenix Brito MD [...] documented as of this encounter Care Teams Sales Training Coordinator Relationship Specialty Start Date End Date Kelby Warner DO [address] [place] [address] PCP - General Internal Medicine 04/17/21 documented as of this encounter
--- OUTSIDE RECORDS SUMMARY | 2025-02-03 11:16 | XMS_ITS | Clinical Summary ---
Author Organization [facility] tem Address [id number] [address] [id number] Care Team Providers Care Deputy Sheriff Civil Division Name Role Phone Unavailable Primary Care Provider [...] file Medical Devices Not on file Insurance [facility]ICARE [facility]
--- OUTSIDE RECORDS SUMMARY | 2025-02-03 11:16 | XMS_ITS | Encounter Summary ---
Author Organization [facility] Address [address] [facility], [address] [place] [address] Care Team Providers Care Barge Engineer Name Role Phone Kelby Warner DO Primary Care Provider [phone] Reason for Referral * Imaging (Routine) - Closed Specialty Diagnoses / Procedures Referred By Contac t Referred To Contact Radiology Diagnoses Hypercalcemia Essential hypertension Type 2 diabetes mellitus with unspecified complications (HCC) Procedures US RETROPERITONEAL COMPLETE Harrison Beltran DO [address] [place] [address] Phone: tel: fax: Referral ID Status Reason Start Date Expiration Date Visits Re quested Visits Authorized [id number] Closed 11/17/2022 11/17/2023 1 1 Encounter Details Date Type Department Care Team (Latest Contact Info) Description 11/17/2022 Transcribe Orders Glynn Pre Access [address] [place] [address] Harrison Beltran U, DO [address] [place], [place] [phone] Hypercalcemia (Primary Dx); Essential hypertension; Type 2 [...] 03/15/2025 1:30 PM EDT Office Visit [facility] VASCULAR Part [address] [place] [address] Marvin Nielson MD [address] [place] [address] Dr [address] [place] [address] F/U from 09/14/24 04/12/2025 2:30 PM EST Office Visit [facility] UROLOGY Part [address] [place] [phone] Jeb Dyer PA-C [address] [place] [address] [address] [place] [address] 6M pvr 04/27/2025 1:40 PM EST Office Visit [facility] CARDIOLOGY Part [address] [phone] Alma Kan MD [address] [place] [address] [place] [address] 6 month 07/12/2025 1:00 PM EST Pharmacy Visit [facility] Medication Management [address] [place] [address] Heart Failure FU- 6month follow-up 10/09/2025 1:00 PM EDT Office Visit [facility] UROLOGY Part of [facility] [address] [facility] [address] [place] [address] Jeb Dyer PA-C [address] [place] [address] 1Y psa documented as of [...] cm in length and the left kidney .5 cm in length. Kidneys demonstrate normal cortical [...] documented as of this encounter Care Teams Barge Engineer Relationship Specialty Start Date End Date Kelby Warner DO [address] [place] [address] PCP - General Internal Medicine 04/17/21 documented as of this encounter
--- OUTSIDE RECORDS SUMMARY | 2025-02-03 11:17 | XMS_ITS | Encounter Summary ---
Author Organization [facility] Address [address] [facility], [address] [place] [address] Care Team Providers Care Bean Picker Machine Operator Name Role Phone Kelby Warner DO Primary Care Provider [phone] Reason for Referral * Imaging (Routine) - Closed Specialty Diagnoses / Procedures Referred By Contac t Referred To Contact Diagnoses Type 2 diabetes mellitus with hyperglycemia, unspecified whether technician terminal and repeater insulin use (HCC) Swelling of left lower extremity Procedures Vascular duplex lower extremity venous left Kelby Warner DO [address] [place] [address] Phone: tel: fax: Referral ID Status Reason Start Date Expiration Date Visits Re quested Visits Authorized [id number] Closed 02/16/2023 02/16/2024 1 1 Encounter Details Date Type Department Care Team (Latest Contact Info) Description 02/16/2023 Transcribe Orders Glynn Pre Access [address] [place] [phone] Kelby Warner DO [address] [facility] [place] [address] Type 2 diabetes mellitus with hyperglycemia, unspecified whether detention insulin use (HCC) (Primary Dx); Swelling of [...] Description 03/15/2025 1:30 PM EDT Office Visit [facility] VASCULAR Part [address] [place] [address] Marvin Nielson MD [address] [place] [address] [address] [place] [address] F/U from 09/14/24 04/12/2025 2:30 PM EST Office Visit [facility] UROLOGY Part [address] [place] [phone] Jeb Dyer PAGeremiasC [address] [place] [address] [address] [place] [address] 6M pvr 04/27/2025 1:40 PM EST Office Visit [facility] CARDIOLOGY Part [address] [address] Alma Kan MD [address] [place] [address] [place] [address] 6 month 07/12/2025 1:00 PM EST Pharmacy Visit [facility] Medication Management [address] [place] [address] Heart Failure FU- 6month follow-up 10/09/2025 1:00 PM EDT Office Visit [facility] UROLOGY Part of [facility] [address] [facility] [address] [place] [address] Jeb Dyer PA-C [address] [facility] [address] [place] [address] 1Y psa documented as of [...] 2 diabetes mellitus with hyperglycemia, unspecified whether technician terminal and repeater insulin use (HCC)- Primary Swelling of left lower extremity Swelling of limb Type 2 diabetes mellitus with hyperglycemia, unspecified whether technician terminal and repeater insulin use (HCC) Swelling of left lower extremity Swelling of limb documented in this encounter Additional Health Concerns Infection Onset Date Last Indicated Resolved Time COVID-19 (Rule Out) 07/22/2024 07/22/2024 07/22/19 25 2:19 PM EST documented as of this encounter Care Teams Bean Picker Machine Operator Relationship Specialty Start Date End Date Kelby Warner DO [address] [facility] [place] [address] PCP - General Internal Medicine 04/17/21 documented as of this encounter
--- OUTSIDE RECORDS SUMMARY | 2025-02-03 11:17 | XMS_ITS | Encounter Summary ---
Author Organization [facility] Address [address] [facility], [address] [place] [address] Care Team Providers Care Laboratory Sampler Name Role Phone Kelby Warner DO Primary Care Provider Encounter Details Date Type Department Care Team (Late st Contact Info) Description 01/15/2025 Orders Only [facility] Admitting [address] [place] [address] Bobo Ignacio MD [address] [place] [address] Social History Tobacco Use Types Packs/Day Years [...] 1:30 PM EDT Office Visit [facility] VASCULAR Part [address] [place] [address] Marvin Nielson MD [address] [place] [address] [address] [place] [address] F/U from 09/14/24 04/12/2025 2:30 PM EST Office Visit [facility] UROLOGY Part [address] [place] [address] Jeb Dyer, PA-C [address] [place] [address] [address] [place] [address] 6M pvr 04/27/2025 1:40 PM EST Office Visit [facility] CARDIOLOGY Part [address] [address] Alma Kan MD [address] [place] [address] [place] [address] 6 month 07/12/2025 1:00 PM EST Pharmacy Visit [facility] Medication Management [address] [place] [phone] Heart Failure FU- 6month follow-up 10/09/2025 1:00 PM EDT Office Visit [facility] UROLOGY Part of [address] [place] [address] Jeb Dyer, PAGeremiasC [address] [place] [address] [address] [place] [address] 1Y psa documented as of this encounter Visit Diagnoses Not on filedocumented in this encounter Care Teams Laboratory Sampler Relationship Specialty Start Date End Date Kelby Warner DO [address] [place] [address] PCP - General Internal Medicine 04/17/21 documented as of this encounter
--- OUTSIDE RECORDS SUMMARY | 2025-02-03 11:17 | XMS_ITS | Encounter Summary ---
Author Organization [facility] Address [address] [facility] [place] [address] Care Team Providers Care Divinity Professor Name Role Phone Kelby Warner DO Primary Care Provider Reason for Referral * Imaging (Routine) - Closed Specialty Diagnoses / Procedures Referred By Contac t Referred To Contact Radiology Diagnoses Primary hyperparathyroidism Hypercalcemia Essential (primary) hypertension Chronic kidney disease, stage II (mild) Procedures NM PARATHYORID W SPECT Harrison Beltran DO [address] [place] [address] Phone: tel: fax: Referral ID Status Reason Start Date Expiration Date Visits Re quested Visits Authorized [id number] Closed 01/15/2023 03/01/2023 1 1 Encounter Details Date Type Department Care Team (Latest Contact Info) Description 01/02/2023 Transcribe Orders Glynn Pre Access [address] [place] [phone] Harrison Beltran U, DO [address] [place] [address] Primary hyperparathyroidism (Primary Dx); Hypercalcemia; Essential (primary) [...] Description 03/15/2025 1:30 PM EDT Office Visit [facility] VASCULAR Part [address] [place] [address] Marvin Nielson MD [address] [place] [address] [address] [place] [address] F/U from 09/14/24 04/12/2025 2:30 PM EST Office Visit [facility] UROLOGY Part [address] [place] [phone] Jeb Dyer PA-C [address] [place] [address] [address] [place] [address] 6M pvr 04/27/2025 1:40 PM EST Office Visit [facility] CARDIOLOGY Part [address] [address] Alma Kan MD [address] [place] [address] [place] [address] 6 month 07/12/2025 1:00 PM EST Pharmacy Visit [facility] Medication Management [address] [place] [address] Heart Failure FU- 6month follow-up 10/09/2025 1:00 PM EDT Office Visit [facility] UROLOGY Part of [facility] [address] [facility] [address] [place] [address] Jeb Dyer PA-C [address] [facility] [address] [place] [address] 1Y psa documented as of [...] documented as of this encounter Care Teams Divinity Professor Relationship Specialty Start Date End Date Kelby Warner DO [address] [place] [address] PCP - General Internal Medicine 04/17/21 documented as of this encounter
--- OUTSIDE RECORDS SUMMARY | 2025-02-03 11:17 | XMS_ITS | Clinical Summary ---
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 Dysphagia following other cerebrovascular diseas e 07/29/2019 Hemiplegia and hemiparesis f ollowing cerebral infarction affecting left non-dominant side 07/29/2019 Encounters Date Type Department Care Team Description 11/09/2024 1:30 PM EDT Procedure Visit [facility] [address] [facility] [place] [address] [place] Cochran DPM Dermatophytosis of nail (Primary Dx); Dystrophic nail; Type II diabetes mellitus with peripheral circulatory disorder (HCC); Diabetic polyneuropathy associated with type 2 diabetes mellitus (HCC) 11/09/2024 Bamboo flowsheet [facility] [address] [facility] [place] [place] [address] [place] Cochran DPM 11/09/2024 Travel 11/08/2024 Travel [...] EDT Procedure Visit [facility] [address] [place] [phone] [place] Cochran DPBella [address] [place], [place] [phone] Insurance MEDICARE Care Teams Tax Associate Relationship Specialty Start Date End Date Kelby Warner DO [address] [place] [address] PCP - General Internal Medicine 02/13/23
--- OUTSIDE RECORDS SUMMARY | 2025-02-03 11:17 | XMS_ITS ---
Author Organization [facility] Address [address] [facility] [place] [address] Care Team Providers Care Professional Bondsman Name Role Phone Kelby Warner DO Primary Care Provider Med Management (Pharmacy) Status:Enrolled (Active) Start date:12/09/2023 Enrollment date:12/09/2023 Enrollment reason:Referred by provider Current support & services provided:MM Heart Failure Case Team Name Relationship Phone Kristen Rader [facility] Pharmacist [phone] Continued Care and Services Coordination
--- OUTSIDE RECORDS SUMMARY | 2025-02-03 11:17 | XMS_ITS | Clinical Summary ---
Author Organization [facility] Address [address] [place] [address] Care Team Providers Care Turf Farm Worker Name Role Phone Alma Kan MD Unavailable Social History Tobacco Use Types Packs/Day Years Used Date Smoking Tobacco: Never Assessed Sex and Gender Information Value Date Recorded Sex Assigned at Not on file Legal Sex Male 1:50 PM EDT Gender Identity Not on file Sexual Orientation Not on file Plan of Treatment Not on file Insurance [facility] [employer] Care Teams Turf Farm Worker Relationship Specialty Start Date End Date Alma Kan MD [address] [place] [address] Referring Internal Medicine 10/07/23
--- OUTSIDE RECORDS SUMMARY | 2025-02-03 11:32 | XMS_ITS | CCD ---
Author Organization [facility] Care Team Providers Care Bulk Tank Driver Name Role Phone Pia Douglass Primary Care Provider [phone] Jorge Pritchett DO Primary Care Provider LEANDRO [...] Unavailable Jorge Pritchett DO Primary Care Provider Jeremias Sullivan DO Attending Provider Yarely ROMO, Jorge Attending Provider YARELY, JORGE [...] sources) Ciprofloxacin; Translations: [ciprofloxacin] Drug Allergy 01-21-20 [facility] (20 sources) Azithromycin; Translations: [azithromycin] Drug Allergy 07-17-19 Dizziness or Vertigo, Unknown [facility] (20 sources) Lisinopril; Translations: [lisinopril] Drug Allergy 07-17-19 [facility] Other (2 sources) Ciprofloxacin Drug Allergy 01-21-20 [facility] (2 sources) Allergies Reconciled Propensity to adverse reactions Unknown [facility] Other (20 sources) dapagliflozin Drug Allergy 10-26-19 24 Itching [facility] [employer] Work Phone: (13 sources) Lisinopril Propensity to adverse reactions 07-17-19 23 Cough, Unknown [facility] (16 sources) Metoprolol Drug Allergy 07-31-19 25 [facility] (1 source) dapagliflozin; Translations: [Farxiga] Drug Allergy [facility] Repository Medications Current Medications Medication Drug [...] Orally Once a day Active bacillus coagulans [id number] 0 unt / inulin 250 mg oral [...] 4:11pm Start: 02-27-2024 take 2 tablets by [facility] daily furosemide (LASIX) 40 [...] Start: 06-01-2021 take 2 tablets by mo [facility] once daily furosemide (LASIX) 40 [...] Start: 02-24-2024 Start: 05-27-2021 15 g, Oral, [place] N, Low blood sugar, Starting on 1/3/22 [...] sodium chloride 0.9 % 100 mL IVPB ([id number]) (1 source) Start: 02-24-2024 End: 03-02-2024 1,000 [...] May 12, 2024 1:25pm polyethylene glycol 3350 62707 mg powder for oral solution (20 sources) [...] tablet Orally Once a day Active Saw [place]-Pumpkin Seed Oil 160 mg capsule (1 source) Start: 12-23-2024 Saw [place]ump[place] Seed Oil 160 mg capsule Active CAP [...] (20 sources) take 1 capsule by mo [facility] once daily Alpha-Lipoic Acid 200 [...] daily Active Blood-Glucose Meter,Continuo us (Dexcom G7 Laser Specialist) misc (2 sources) Start: 08-29-2023 End: 05-12-2024 Blood-Glucose Meter,Continuo us (Dexcom G7 Laser Specialist) misc Discontinued 0 .Route 1 August 28, 2023 11:00pm May 12, 2024 12:29pm Use to test home BS 4-6x daily Start: 08-29-2023 Blood-Glucose Meter,Continuous (Dexcom G7 Laser Specialist) misc Active 0 .Route 1 August 29, [...] Use to test home BS 4-6x daily Blood-Glucose,Laser Specialist,Cont (Dexcom G7 Laser Specialist) misc (2 sources) Start: 08-29-2023 End: 05-12-2024 Blood-Glucose,Laser Specialist,Cont (Dexcom G7 Laser Specialist) misc Discontinued 0 .Route August 29, 2023 [...] by mouth three times a week [facility] 07/03/2023 Active ceFAZolin 2000 mg injection (1 [...] presley ly Cholecalciferol (VITAMIN D3) 1.25 MG (70904 UT) CAPS Take 1 capsule by mouth daily 0 Active take 1 capsule by mouth in the m orning Cholecalciferol (VITAMIN D3) 1.25 MG (26122 UT) CAPS Take 1 capsule by mouth [...] mouth twice daily as needed, then take [id number] tablets by mouth twice daily as needed [...] per tablet Indications: Coronary artery disease involving [place] coronary artery of [place] heart without angina pectoris , S/P angioplasty [...] Start: 10-15-2022 take 1 capsule by mo [facility] every twenty-four hours in the [...] Coronary arteriosclerosis; Translations: [Atherosclerotic heart disease of [place] coronary artery with angina pectoris with documented [...] Comment on above: ISS coverage:< [phone] [id number] [id number] 34u> 300 38Basal Insulin 20u am and [...] sources) Long-term current use of insulin; Translations: [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] Episodic Other aftercare (5 sources) long-term (current) use of insulin; Translations: [RETIREMENT CURRENT USE OF INSULIN] Onset: 3 Episodic Other aftercare (1 source) long-term (current) use of aspirin; Translations: [DETENTION OFFICER CURRENT USE OF ASPIRIN] Onset: 3 Episodic Other aftercare (1 source) Other intermediate teacher (current) drug therapy; Translations: [OTH DETENTION OFFICER CURRENT DRUG THERAPY] Onset: 3 Episodic Other [...] Acute and unspecified renal failure (2 sources) Dhlts-go-dctxqat renal failure; Translations: [Acute kidney failure, unspecified] [...] [Ratio] 12.6 % 11.8 - 14.4 % [facility] Hematocrit (Bld) [Volume fraction] 39.5 % Low 40.7 - 50.3 % [facility] Hemoglobin (Bld) [Mass/Vol] 12.6 g/dL Low 13.0 - 17.0 g/dL [facility] Interpretation and review of laboratory results Abnormal [facility] MCH (RBC) [Entitic mass] 29.2 pg 25.2 - 33.5 pg [facility] MCHC (RBC) [Mass/Vol] 31.9 g/dL 28.4 - 34.8 g/dL [facility] MCV (RBC) [Entitic vol] 91.6 fL 82.6 - 102.9 fL [facility] Nucleated RBC/100 WBC (Bld) [Ratio] 0 % 0.0 per 100 WBC [facility] Platelet mean volume (Bld) [Entitic vol] 10.8 fL 8.1 - 13.5 fL [facility] Platelets (Bld) [#/Vol] 352 10*3/uL [facility] RBC (Bld) [#/Vol] 4.31 10*6/uL 4.21 - 5.7 7 m/uL [facility] WBC other (Bld) [#/Vol] 7 B on [facility] Erythrocyte distribution width (RBC) [Ratio] 12.6 % Normal 11.8-14.4 [facility] Comment on above: Performed By: #### U MICAO, CBC, UAX, MG, RENP, URTPRT, URI ####[address] [place], [place] 24[address]83 Lab Director: Eder Herrera MD#### PTHNCA ####[address] [id number] Lab Director: Jimenez Pruett MD Hematocrit (Bld) [Volume fraction] 39.5 % Low 40.7-50.3 [facility] Comment on above: Performed By: #### U MICAO, CBC, UAX, MG, RENP, URTPRT, URI ####[address] [place], [place] 6127283 Lab Director: Eder Herrera MD#### PTHNCA ####[address] [address] Lab Director: Jimenez Pruett MD Hemoglobin (Bld) [Mass/Vol] 12.6 g/dL Low 13.0-17.0 [facility] Comment on above: Performed By: #### U MICAO, CBC, UAX, MG, RENP, URTPRT, URI ####[address] [place], [place] 5831283 Lab Director: Eder Herrera MD#### PTHNCA ####[address] [id number] Lab Director: Jimenez Pruett MD MCH (RBC) [Entitic mass] 29.2 pg Normal 25.2-33.5 [facility] Comment on above: Performed By: #### U MICAO, CBC, UAX, MG, RENP, URTPRT, URI ####[address] [place], [place] 8397383 Lab Director: Eder Herrera MD#### PTHNCA ####[address] [phone] Lab Director: Jimenez Pruett MD MCHC (RBC) [Mass/Vol] 31.9 g/dL Normal 28.4-34.8 [facility] Comment on above: Performed By: #### U MICAO, CBC, UAX, MG, RENP, URTPRT, URI ####[address] [place] [address]5983 [facility] Director: Eder Herrera MD#### PTHNCA ####[address] [address] Lab Director: Jimenez Pruett MD MCV (RBC) [Entitic vol] 91.6 fL Normal 82.6-102.9 M [facility] Comment on above: Performed By: #### U MICAO, CBC, UAX, MG, RENP, URTPRT, URI ####[address] [place] 5605983 Lab Director: Eder Herrera MD#### PTHNCA ####[address] [address] Lab Director: Jimenez Pruett MD NRBC Automated 0.0 per 100 WBC Normal 0.0 [facility] Comment on above: Performed By: #### U MICAO, CBC, UAX, MG, RENP, URTPRT, URI ####[address] [place] 56059[address] Lab Director: Eder Herrera MD#### PTHNCA ####[address] [place] [address] Lab Director: Jimenez Pruett MD Platelet mean volume (Bld) [Entitic vol] 10.8 fL Normal 8.1-13.5 [facility] Comment on above: Performed By: #### U MICAO, CBC, UAX, MG, RENP, URTPRT, URI ####[address] [place] [address]([facility])[phone] Director: Eder Herrera MD#### PTHNCA ####[address] [phone] Director: Jimenez Pruett MD Platelets (Bld) [#/Vol] 352 10*3/uL Normal 138-453 [facility] Comment on above: Performed By: #### U MICAO, CBC, UAX, MG, RENP, URTPRT, URI ####[address] [place] 5[address]906([facility])[phone] Director: Eder Herrera MD#### PTHNCA ####[place], [place] [address])[phone] Director: Jimenez Pruett MD RBC (Bld) [#/Vol] 4.31 10*6/uL Normal 4.21-5.77 [facility] Comment on above: Performed By: #### U MICAO, CBC, UAX, MG, RENP, URTPRT, URI ####[address] [place] [address]([facility])[phone] Director: Eder Herrera MD#### PTHNCA ####[place], [place] [address])[phone] Director: Jimenez Pruett MD WBC (Bld) [#/Vol] 7.0 10*3/uL Normal 3.5-11.3 [facility] Comment on above: Performed By: #### U MICAO, CBC, UAX, MG, RENP, URTPRT, URI ####[address] [place] [address] Lab Director: Eder Herrera MD#### PTHNCA ####[facility] [place], [place] 8408[address] Lab Director: Jimenez Pruett MD Magnesiumon 12-06-2024 Magnesium [Mass/Vol] 2.4 mg/dL 1.6 - 2 .4 mg/dL [facility] Magnesium [Mass/Vol] 2.4 mg/dL Normal 1.6-2.4 [facility] Comment on above: Performed By: #### U MICAO, CBC, UAX, MG, RENP, URTPRT, URI ####[address] [place] [address] lab Director: Eder Herrera MD#### PTHNCA ####[place] [address] [place], [place] [address] Lab Director: Jimenez Pruett MD Microscopic Urinalysison Epithelial cells LM.HPF (Urine sed) [#/Area] 0 TO 2 [facility] RBC LM.HPF (Urine sed) [#/Area] 0 TO 2 [facility] WBC LM.HPF (Urine sed) [#/Area] None [facility] No Panel Informationon 12-06 [facility] PTH, Intacton 12-06-2024 Interpretation and review of laboratory results Abnormal [facility] Parathyrin.intact [Mass/Vol] 164.0 pg/mL High 17.9 - 58.6 pg/mL [facility] PTH, Intact 164.0 pg/mL High 17.9-58.6 [facility] Comment on above: Performed By: #### U MICAO, CBC, UAX, MG, RENP, URTPRT, URI ####[address] [place] [address] [facility] Director: Eder Herrera MD#### PTHNCA ####[address] [place] [address] Lab Director: Jimenez Pruett MD Protein / creatinine ratio, urineon 12-06-2024 Creatinine (U) [Mass/Vol] 59.5 mg/dL 39.0 - 259.0 mg/dL [facility] Protein (U) [Mass/Vol] 10 mg/dL [facility] Comment on above: No normal range esta blished. Urine Total Protein Creatinine Ratio 0.17 0.00 - 0.20 [facility] Protein,Tot,Alvarado Uron 2024 Creatinine [Mass/Vol] 59.5 mg/dL Normal 39.0-259.0 [facility] Comment on above: Performed By: #### U MICAO, CBC, UAX, MG, RENP, URTPRT, URI ####[address] [place] [address]([facility])[phone] Director: Eder Herrera MD#### PTHNCA ####[place] [address] Lab Director: Jimenez Pruett MD Tot Prot. Conc. 10 mg/dL Normal [facility] Comment on above: Result Comment: No n ormal range established. Performed By: #### U MICAO, CBC, UAX, MG, RENP, URTPRT, URI ####[address] [place] 508[address]83 Lab Director: Eder Herrera MD#### PTHNCA ####[place] [address] [place] [phone] Lab Director: Jimenez Pruett MD TP/Cre Ratio 0.17 Normal 0.00-0.20 [facility] Comment on above: Performed By: #### U MICAO, CBC, UAX, MG, RENP, URTPRT, URI ####[facility] [place] [address] Lab Director: Eder Herrera MD#### PTHNCA ####[facility] [address] [place], [place] 6421008 lab Director: Jimenez Pruett MD Renal Function Panelon 12-06 Albumin [Mass/Vol] 4.2 g/dL 3.5 - 5.2 g/dL [facility] Anion gap [Moles/Vol] 12 mmol/L 9 - 16 mmol/L [facility] Calcium [Mass/Vol] 10.1 mg/dL 8.6 - 10. 4 mg/dL [facility] Chloride [Moles/Vol] 103 mmol/L 98 - 10 7 mmol/L [facility] CO2 [Moles/Vol] 22 mmol/L 20 - 31 mmol/L [facility] Creatinine [Mass/Vol] 1.4 mg/dL High 0.70 - 1.20 mg/dL [facility] Est, Glom Filt Rate 54 Low - PINF [facility] Comment on above: These results are not [...] 128 mg/dL High 74 - 99 mg/dL [facility] ESKY [facility] Interpretation and review of laboratory results Abnormal [facility] Phosphate [Mass/Vol] 2.3 mg/dL Low 2.5 - 4 .5 mg/dL [facility] Potassium [Moles/Vol] 4.1 mmol/L 3.7 - 5.3 mmol/L [facility] Sodium [Moles/Vol] 137 mmol/L 136 - 145 mmol/L [facility] Urea nitrogen [Mass/Vol] 34 mg/dL High 8 - 23 mg/dL [facility] Urea nitrogen/Creatinine [Mass ratio] 24 mg/mg High 9 - 20 [facility] Albumin [Mass/Vol] 4.2 g/dL Normal 3.5-5.2 [facility] Comment on above: Performed By: #### U MICAO, CBC, UAX, MG, RENP, URTPRT, URI ####[address] [place], [place] 1104[address] [facility] Director: Eder Herrera MD#### PTHNCA ####[address] [place], [place] 8357708 Lab Director: Jimenez Pruett MD Anion gap [Moles/Vol] 12 mmol/L Normal 9-16 [facility] Comment on above: Performed By: #### U MICAO, CBC, UAX, MG, RENP, URTPRT, URI ####[address] [place], [place] 0400[address] [facility] Director: Eder Herrera MD#### PTHNCA ####[address] [phone] Lab Director: Jimenez Pruett MD BUN/CRE Ratio 24 High - [facility] Comment on above: Performed By: #### U MICAO, CBC, UAX, MG, RENP, URTPRT, URI ####[address] [place], [place] 6058283 Lab Director: Eder Herrera MD#### PTHNCA ####[address] [phone] Lab Director: Jimenez Pruett MD Calcium [Mass/Vol] 10.1 mg/dL Normal 8.6-10.4 [facility] Comment on above: Performed By: #### U MICAO, CBC, UAX, MG, RENP, URTPRT, URI ####[address] [place] [address] Lab Director: Eder Herrera MD#### PTHNCA ####[facility] [place] [address] Lab Director: Jimenez Pruett MD Chloride [Moles/Vol] 103 mmol/L Normal 98-107 [facility] Comment on above: Performed By: #### U MICAO, CBC, UAX, MG, RENP, URTPRT, URI ####[address] [place], [place] 3907283 Lab Director: Eder Herrera MD#### PTHNCA ####[address] [place] [address] Lab Director: Jimenez Pruett MD CO2 [Moles/Vol] 22 mmol/L Normal 20-31 [facility] Comment on above: Performed By: #### U MICAO, CBC, UAX, MG, RENP, URTPRT, URI ####[address] [place] [address] Lab Director: Eder Herrera MD#### PTHNCA ####[address] [address] Lab Director: Jimenez Pruett MD Creatinine [Mass/Vol] 1.4 mg/dL High 0.70-1.20 [facility] Comment on above: Performed By: #### U MICAO, CBC, UAX, MG, RENP, URTPRT, URI ####[address] [place] [address] Lab Director: Eder Herrera MD#### PTHNCA ####[address] [address] Lab Director: Jimenez Pruett MD GFR/1.73 sq M.predicted among non-blacks MDRD (S/P/Bld) [Vol rate/Area] 54 mL/min/{1.73_m2} Low >60 [facility] Comment on above: Result Comment: Thes [...] MICAO, CBC, UAX, MG, RENP, URTPRT, URI ####[address] [place], [place] 4796783 Lab Director: Eder Herrera MD#### PTHNCA ####[address] [place], [place] 6421108 Lab Director: Jimenez Pruett MD Glucose [Mass/Vol] 128 mg/dL High 74-99 [facility] Comment on above: Performed By: #### U MICAO, CBC, UAX, MG, RENP, URTPRT, URI ####[address] [place], [place] 7934683 Lab Director: Eder Herrera MD#### PTHNCA ####[address] 0646208 Lab Director: Jimenez Pruett MD Phosphorus, Inorg. 2.3 mg/dL Low 2.5-4.5 [facility] Comment on above: Performed By: #### U MICAO, CBC, UAX, MG, RENP, URTPRT, URI ####[address] [place], [place] 6762983 Lab Director: Eder Herrera MD#### PTHNCA ####[address] [place], [place] 7618008 Lab Director: Jimenez Pruett MD Potassium [Moles/Vol] 4.1 mmol/L Normal 3.7-5.3 [facility] Comment on above: Performed By: #### U MICAO, CBC, UAX, MG, RENP, URTPRT, URI ####[address] [place], [place] 8053983 Lab Director: Eder Herrera MD#### PTHNCA ####[address] [id number] Lab Director: Jimenez Pruett MD Sodium [Moles/Vol] 137 mmol/L Normal 136-145 [facility] Comment on above: Performed By: #### U MICAO, CBC, UAX, MG, RENP, URTPRT, URI ####[address] [place] [address]83 [facility] Director: Eder Herrera MD#### PTHNCA ####[address] [address] Lab Director: Jimenez Pruett MD Urea nitrogen [Mass/Vol] 34 mg/dL High 8-23 [facility] Comment on above: Performed By: #### U MICAO, CBC, UAX, MG, RENP, URTPRT, URI ####[address] , [facility]83 Lab Director: Eder Herrera MD#### PTHNCA ####[address] [address] Lab Director: Jimenez Pruett MD UA w/Reflex Cultureon 2024 Clarity (U) Clear Normal CLEAR [facility] Comment on above: Performed By: #### U MICAO, CBC, UAX, MG, RENP, URTPRT, URI ####[address] [place], [place] 7532483 Lab Director: Eder Herrera MD#### PTHNCA ####[address] [phone] Lab Director: Jimenez Pruett MD Color (U) Yellow Normal YEL [facility] Comment on above: Performed By: #### U MICAO, CBC, UAX, MG, RENP, URTPRT, URI ####[address] [place], [place] 3980783 Lab Director: Eder Herrera MD#### PTHNCA ####[address] 9486208 Lab Director: Jimenez Pruett MD Leukocyte esterase Test strip Ql (U) Negative Normal NEG [facility] Comment on above: Performed By: #### U MICAO, CBC, UAX, MG, RENP, URTPRT, URI ####[address] [place] [address] [facility] Director: Eder Herrera MD#### PTHNCA ####[address] [address] Lab Director: Jimenez Pruett MD Bilirubin, SemiQt,Ur Negative Normal NEG [facility] Comment on above: Performed By: #### U MICAO, CBC, UAX, MG, RENP, URTPRT, URI ####[address] [place] [address] [facility] Director: Eder Herrera MD#### PTHNCA ####[address] [address] Lab Director: Jimenez Pruett MD Blood, Urine Negative Normal NEG [facility] Comment on above: Performed By: #### U MICAO, CBC, UAX, MG, RENP, URTPRT, URI ####[address] [place], [place] 9715783 Lab Director: Eder Herrera MD#### PTHNCA ####[address] [place] [address] Lab Director: Jimenez Pruett MD Glucose Ql (U) 3+ mg/dL Abnormal NEG [facility] Comment on above: Performed By: #### U MICAO, CBC, UAX, MG, RENP, URTPRT, URI ####[address] [place] [address] [facility] Director: Eder Herrera MD#### PTHNCA ####[address] [address] Lab Director: Jimenez Pruett MD Ketones Ql (U) Negative Normal NEG [facility] Comment on above: Performed By: #### U MICAO, CBC, UAX, MG, RENP, URTPRT, URI ####[address] [place] [address] [facility] Director: Eder Herrera MD#### PTHNCA ####[address] [address] Lab Director: Jimenez Pruett MD Nitrite,Ur Negative Normal NEG [facility] Comment on above: Performed By: #### U MICAO, CBC, UAX, MG, RENP, URTPRT, URI ####[address] [place] [address] Lab Director: Eder Herrera MD#### PTHNCA ####[address] [address] Lab Director: Jimenez Pruett MD PH,Ur 6.0 Normal 5.0-9.0 [facility] Comment on above: Performed By: #### U MICAO, CBC, UAX, MG, RENP, URTPRT, URI ####[address] [place] [address] [facility] Director: Eder Herrera MD#### PTHNCA ####[address] [place] [address] Lab Director: Jimenez Pruett MD Protein Ql (U) Negative Normal NEG [facility] Comment on above: Performed By: #### U MICAO, CBC, UAX, MG, RENP, URTPRT, URI ####[address] [place], [place] 52[address] [facility] Director: Eder Herrera MD#### PTHNCA ####[address] [address] Lab Director: Jimenez Pruett MD Spec. [place],Ur <1.005 Low 1.010-1.020 [facility] Comment on above: Performed By: #### U MICAO, CBC, UAX, MG, RENP, URTPRT, URI ####[address] [place], [place] 7008183 Lab Director: Eder Herrera MD#### PTHNCA ####[address] [address] Lab Director: Jimenez Pruett MD Urobilinogen,Ur Normal Normal 0.0-1.0 [facility] Comment on above: Performed By: #### U MICAO, CBC, UAX, MG, RENP, URTPRT, URI ####[address] [place], [place] 3384883 Lab Director: Eder Herrera MD#### PTHNCA ####[address] [place] [address] Lab Director: Jimenez Pruett MD Uric Acidon 12-06-2024 Urate [Mass/Vol] 5.5 mg/dL 3.4 - 7.0 mg/dL [facility] Urate [Mass/Vol] 5.5 mg/dL Normal 3.4-7.0 [facility] Comment on above: Performed By: #### U MICAO, CBC, UAX, MG, RENP, URTPRT, URI ####[facility] [place] [address] lab Director: Eder Herrera MD#### PTHNCA ####[address] [place], [place] 2150208 lab Director: Jimenez Pruett MD Urinalysis with Reflex to Cu ltureon 12-06-2024 Bilirubin Ql (U) Negative NEGATIVE [facility] Glucose Test strip (U) [Mass/Vol] 3+ Abnormal NEGATIVE mg/dL [facility] Hemoglobin Auto test strip Ql (U) Negative NEGATIVE [facility] Interpretation and review of laboratory results Abnormal [facility] Ketones (U) [Mass/Vol] Negative NEGAT PAO mg/dL [facility] Nitrite Ql (U) Negative NEGATIVE [facility] pH (U) 6 [pH] 5.0 - 9.0 [facility] Protein (U) [Mass/Vol] Negative NEGAT PAO mg/dL [facility] Specific gravity (U) [Rel density] Low 1.010 - 1.020 [facility] Urobilinogen Qn (U) Normal 0.0 - 1. 0 EU/dL [facility] Urinalysis,Microon 5 Epithelial cells LM Ql (Urine sed) 0 TO 2 Normal 0-5 [facility] Comment on above: Performed By: #### U MICAO, CBC, UAX, MG, RENP, URTPRT, URI ####[facility] [place] [address] Lab Director: Eder Herrera MD#### PTHNCA ####[address] [place], [place] [address] Lab Director: Jimenez Pruett MD Urine RBC's 0 TO 2 Normal 0-2 [facility] Comment on above: Performed By: #### U MICAO, CBC, UAX, MG, RENP, URTPRT, URI ####[facility] [place] [address] Lab Director: Eder Herrera MD#### PTHNCA ####[facility] [address] [place], [place] 6993608 Lab Director: Jimenez Pruett MD Urine WBC's None Normal 0-5 [facility] Comment on above: Performed By: #### U MICAO, CBC, UAX, MG, RENP, URTPRT, URI ####[facility] [place] [place] , [place] 654[address]83 lab Director: Eder Herrera MD#### PTHNCA ####[address] [place], [place] 3645308 lab Director: Jimenez Pruett MD Basophils Auto (Bld) [#/Vol] Ordered By: Jeremias Sullivan on 11-15-2024 Basophils (Bld) [#/Vol] 0.0 10 3/uL 0.0-0.1 [facility] Basophils/100 WBC Auto (Bld) Ordered By: Jeremias Sullivan on 11-15-2024 Basophils/100 WBC (Bld) 0.2 % 0.2-2.0 [facility] Eosinophils/100 WBC Auto (Bl d)Ordered By: Jeremias Sullivan on 11-15-2024 Eosinophils/100 WBC (Bld) 1.1 % 0.9-7.0 [facility] Erythrocyte distribution wid th Auto (RBC) [Ratio]Ordered By: Jeremias Sullivan on 11-15-2024 Erythrocyte distribution width (RBC) [Ratio] 13.0 % 11.0-15.0 [facility] Estimated glomerular filtrat ion rate (GFR) non- AmericanOrdered By: Jeremias Sullivan on 11-15-2024 GFR/1.73 sq M.predicted among non-blacks MDRD (S/P/Bld) [Vol rate/Area] 43 mL/min/{1.73_m2} Low >=60 mL/min/1.73 m 2 [facility] Hematocrit Auto (Bld) [Volum e fraction]Ordered By: Jeremias Sullivan on 11-15-2024 Hematocrit (Bld) [Volume fraction] 37.1 % Low 42.0-54.0 [facility] Hemoglobin [Mass/volume] in BloodOrdered By: Jeremias Sullivan on 11-15-2024 Hemoglobin (Bld) [Mass/Vol] 12.5 g/dL Low 14.0-18.0 [facility] [facility] - Chemistry and C hemistry - challengeOrdered By: Jeremias Sullivan on 11-15-2024 Bilirubin Ql (U) Negative NEGATIVE [facility] Glucose (U) [Mass/Vol] mg/dL Abnormal NEGATIVE Fi [facility] Ketones Ql (U) Negative NEGATIVE [facility] pH (U) 7.5 [pH] 5.0-9.0 [facility] Specific gravity (U) [Rel density] <=1.005 Abnormal 1.005-1.025 [facility] Urobilinogen Qn (U) 0.2 {Fabiana'U}/dL 0.2-1.0 [facility] Calcium [Mass/Vol] 10.2 mg/dL High 8.5-10.1 [facility] Chloride [Moles/Vol] 101 mmol/L 98-107 [facility] CO2 [Moles/Vol] 28.8 mmol/L 21.0-32.0 [facility] Creatinine [Mass/Vol] 1.63 mg/dL High 0.70-1.30 [facility] GFR/1.73 sq M.predicted MDRD (S/P/Bld) [Vol rate/Area] 52 mL/min/{1.73_m2} Low >=60 mL/min/1.73 m 2 [facility] Glucose [Mass/Vol] 126 mg/dL High 74-106 [facility] Potassium [Moles/Vol] 4.1 mmol/L 3.5-5.1 [facility] Sodium [Moles/Vol] 138 mmol/L 136-145 [facility] Urea nitrogen [Mass/Vol] 34.0 mg/dL High 7.0-18.0 [facility] Urea nitrogen/Creatinine [Mass ratio] 20.9 mg/mg [facility] Laboratory - Hematology and Cell countsOrdered By: Jeremias Sullivan on 11-15-2024 Immature granulocytes/100 WBC (Bld) 0.3 % 0.0-0.5 [facility] Laboratory - Specimen inform ationOrdered By: Jeremias Sullivan on 11-15-2024 Appearance (U) CLEAR CLEAR [facility] Color (U) LT. YELLOW YELLOW [facility] Laboratory - UrinalysisOrder ed By: Jeremias Sullivan on 11-15-2024 Leukocyte esterase Test strip Ql (U) Negative NEGATIVE [facility] Mucus Ql (Urine sed) NONE SEEN NONE SEEN [facility] Nitrite Ql (U) Negative NEGATIVE [facility] Protein Ql (U) Negative NEG/TRACE [facility] Leukocytes [#/volume] correc yaneth for nucleated erythrocytes in Blood by Automated counOrdered By: Jeremias Sullivan on 11-15-2024 WBC corrected for nucl RBC Auto (Bld) [#/Vol] 8.8 10 3/uL 4.0-11.0 [facility] Lymphocytes Auto (Bld) [#/Vo l]Ordered By: Jeremias Sullivan on 11-15-2024 Lymphocytes (Bld) [#/Vol] 1.4 10 3/uL 1.2-3.8 [facility] Lymphocytes/100 WBC Auto (Bl d)Ordered By: Jeremias Sullivan on 11-15-2024 Lymphocytes/100 WBC (Bld) 15.8 % Low 20.5-60.0 [facility] MCH Auto (RBC) [Entitic mass ]Ordered By: Jeremias Sullivan on 11-15-2024 MCH (RBC) [Entitic mass] 30.8 pg 25.9-34.0 [facility] MCHC Auto (RBC) [Mass/Vol]Or dered By: Jeremias Sullivan on 11-15-2024 MCHC (RBC) [Mass/Vol] 33.7 g/dL 29.9-35.2 [facility] MCV Auto (RBC) [Entitic vol] Ordered By: Jeremias Sullivan on 11-15-2024 MCV (RBC) [Entitic vol] 91.4 fL 80.0-94.0 [facility] Monocytes Auto (Bld) [#/Vol] Ordered By: Jeremias Sullivan on 11-15-2024 Monocytes (Bld) [#/Vol] 1.0 10 3/uL High 0.3-0.8 [facility] Monocytes/100 WBC Auto (Bld) Ordered By: Jeremias Sullivan on 11-15-2024 Monocytes/100 WBC (Bld) 11.2 % 1.7-12.0 [facility] Neutrophils Auto (Bld) [#/Vo l]Ordered By: Jeremias Sullivan on 11-15-2024 Neutrophils (Bld) [#/Vol] 6.3 10 3/uL 1.4-6.5 [facility] Neutrophils/100 WBC Auto (Bl d)Ordered By: Jeremias Sullivan on 11-15-2024 Neutrophils/100 WBC (Bld) 71.4 % 43.0-75.0 [facility] No Panel InformationOrdered By: Jeremias Sullivan on 11-15-2024 Urine Bacteria TRACE #/HPF Abnormal NONE SEEN [facility] Urine Culture Reflexed NO [facility] Urine Occult Blood Negative NEGATIVE [facility] Urine Other Casts NONE SEEN #/LPF NONE SEEN [facility] Urine Other Crystals None Seen #/HPF None Seen [facility] Urine RBC NONE SEEN #/HPF 0-2 [facility] Urine Squamous Epithelial Cells NONE SEEN #/LPF NONE/RARE [facility] Urine WBC NONE SEEN #/HPF NONE SEEN [facility] Eosinophils # (Auto) 0.1 10 3/uL 0.0-0.7 [facility] Immature Granulocyte # (Auto) 0.03 10 3/uL 0.00-0.03 [facility] Platelet mean volume Auto (B ld) [Entitic vol]Ordered By: Jeremias Sullivan on 11-15-2024 Platelet mean volume (Bld) [Entitic vol] 10.7 fL 9.5-13.5 [facility] Platelets Auto (Bld) [#/Vol] Ordered By: Jeremias Sullivan on 11-15-2024 Platelets (Bld) [#/Vol] 308 10 3/uL 150-450 [facility] RBC Auto (Bld) [#/Vol]Ordere d By: Jeremias Sullivan on 11-15-2024 RBC (Bld) [#/Vol] 4.06 10 6/uL Low 4.70-6.10 [facility] Serum or plasma anion gap de terminationOrdered By: Jeremias Sullivan on 11-15-2024 Anion gap [Moles/Vol] 12.3 mmol/L [facility] Glucose, Whole Bloodon 11-11 Glucose [Mass/Vol] 184 mg/dL High 74 - 100 mg/dL [facility] Glucose [Mass/Vol] 196 mg/dL High 74 - 100 mg/dL [facility] Glucose [Mass/Vol] 184 mg/dL High 74-100 [facility] Glucose [Mass/Vol] 196 mg/dL High 74-100 [facility] No Panel Informationon 11-11 Interpretation and review of laboratory results Abnormal [facility] Surgical Pathology Reporton 11-11-2024 Surgical Pathology Report Normal [facility] CBCon 11-01-2024 Erythrocyte distribution width (RBC) [Ratio] 13 % 11.8 - 14.4 % [facility] Hematocrit (Bld) [Volume fraction] 38.9 % Low 40.7 - 50.3 % [facility] Hemoglobin (Bld) [Mass/Vol] 12.7 g/dL Low 13.0 - 17.0 g/dL [facility] Interpretation and review of laboratory results Abnormal [facility] MCH (RBC) [Entitic mass] 31 pg 25.2 - 33.5 pg [facility] MCHC (RBC) [Mass/Vol] 32.6 g/dL 28.4 - 34.8 g/dL [facility] MCV (RBC) [Entitic vol] 94.9 fL 82.6 - 102.9 fL [facility] Nucleated RBC/100 WBC (Bld) [Ratio] 0 % 0.0 per 100 WBC [facility] Platelet mean volume (Bld) [Entitic vol] 10.7 fL 8.1 - 13.5 fL [facility] Platelets (Bld) [#/Vol] 279 10*3/uL [facility] RBC (Bld) [#/Vol] 4.1 10*6/uL Low 4.21 - 5.7 7 m/uL [facility] WBC other (Bld) [#/Vol] 7.4 B on [facility] Erythrocyte distribution width (RBC) [Ratio] 13.0 % Normal 11.8-14.4 [facility] Comment on above: Performed By: #### R ENP, UAX, CBC, URI, URTPRT, UMICAO, MG ####[address] [place] [address] [facility] Director: Eder Herrera MD#### PTHNCA ####[place] [id number] Lab Director: Jimenez Pruett MD Hematocrit (Bld) [Volume fraction] 38.9 % Low 40.7-50.3 [facility] Comment on above: Performed By: #### R ENP, UAX, CBC, URI, URTPRT, UMICAO, MG ####[address] [place] [id number] [facility] Director: Eder Herrera MD#### PTHNCA ####[address] [phone] Lab Director: Jimenez Pruett MD Hemoglobin (Bld) [Mass/Vol] 12.7 g/dL Low 13.0-17.0 [facility] Comment on above: Performed By: #### R ENP, UAX, CBC, URI, URTPRT, UMICAO, MG ####[address] [place] [address] Lab Director: Eder Herrera MD#### PTHNCA ####[address] [address] Lab Director: Jimenez Pruett MD MCH (RBC) [Entitic mass] 31.0 pg Normal 25.2-33.5 [facility] Comment on above: Performed By: #### R ENP, UAX, CBC, URI, URTPRT, UMICAO, MG ####[address] [place] [address] Lab Director: Eder Herrera MD#### PTHNCA ####[place] [address] Lab Director: Jimenez Pruett MD MCHC (RBC) [Mass/Vol] 32.6 g/dL Normal 28.4-34.8 [facility] Comment on above: Performed By: #### R ENP, UAX, CBC, URI, URTPRT, UMICAO, MG ####[address] [place] [address] Lab Director: Eder Hererra MD#### PTHNCA ####[place] [address] Lab Director: Jimenez Pruett MD MCV (RBC) [Entitic vol] 94.9 fL Normal 82.6-102.9 [facility] Comment on above: Performed By: #### R ENP, UAX, CBC, URI, URTPRT, UMICAO, MG ####[address] [place] [address] Lab Director: Eder Herrera MD#### PTHNCA ####[address] [address] lab Director: Jimenez Pruett MD NRBC Automated 0.0 per 100 WBC Normal 0.0 [facility] Comment on above: Performed By: #### R ENP, UAX, CBC, URI, URTPRT, UMICAO, MG ####[address] , [place] 0847483 Lab Director: Eder Herrera MD#### PTHNCA ####[place] [address] [place], [place] [phone] Director: Jimenez Pruett MD Platelet mean volume (Bld) [Entitic vol] 10.7 fL Normal 8.1-13.5 [facility] Comment on above: Performed By: #### R ENP, UAX, CBC, URI, URTPRT, UMICAO, MG ####[address] , [facility]83 Lab Director: Eder Herrera MD#### PTHNCA ####[place] [address] [place], [place] [address])[phone] Director: Jimenez Pruett MD Platelets (Bld) [#/Vol] 279 10*3/uL Normal 138-453 [facility] Comment on above: Performed By: #### R ENP, UAX, CBC, URI, URTPRT, UMICAO, MG ####[address] , [facility]83 Lab Director: Eder Herrera MD#### PTHNCA ####[place] [address] [place], [place] [address])[phone] Director: Jimneez Pruett MD RBC (Bld) [#/Vol] 4.10 10*6/uL Low 4.21-5.77 [facility] Comment on above: Performed By: #### R ENP, UAX, CBC, URI, URTPRT, UMICAO, MG ####[address] [place] [address] Lab Director: Eder Herrera MD#### PTHNCA ####[address], [place] 1278208 Lab Director: Jimenez Pruett MD WBC (Bld) [#/Vol] 7.4 10*3/uL Normal 3.5-11.3 [facility] Comment on above: Performed By: #### R ENP, UAX, CBC, URI, URTPRT, UMICAO, MG ####[facility] [place] [address] lab Director: Eder Herrera MD#### PTHNCA ####[place] [address] [place], [place] [phone] lab Director: Jimenez Pruett MD Magnesiumon 11-01-2024 Magnesium [Mass/Vol] 1.9 mg/dL 1.6 - 2 .4 mg/dL [facility] Magnesium [Mass/Vol] 1.9 mg/dL Normal 1.6-2.4 [facility] Comment on above: Performed By: #### R ENP, UAX, CBC, URI, URTPRT, UMICAO, MG ####[address] [place] [address] lab Director: Eder Herrera MD#### PTHNCA ####[place] [address] [place], [place] [phone] lab Director: Jimenez Pruett MD Microscopic Urinalysison Epithelial cells LM.HPF (Urine sed) [#/Area] 10 TO 20 [facility] RBC LM.HPF (Urine sed) [#/Area] 0 TO 2 [facility] WBC LM.HPF (Urine sed) [#/Area] 2 TO 5 [facility] No Panel Informationon 11-01 [facility] PTH, Intacton 11-01-2024 Interpretation and review of laboratory results Abnormal [facility] Parathyrin.intact [Mass/Vol] 164.0 pg/mL High 17.9 - 58.6 pg/mL [facility] PTH, Intact 164.0 pg/mL High 17.9-58.6 [facility] Comment on above: Performed By: #### R ENP, UAX, CBC, URI, URTPRT, UMICAO, MG ####[facility] [place], [place] 92[address] Lab Director: Eder Herrera MD#### PTHNCA ####[place] [address] [place], [place] 5035[address] Lab Director: Jimenez Pruett MD Protein / creatinine ratio, urineon 11-01-2024 Creatinine (U) [Mass/Vol] 39.1 mg/dL 39.0 - 259.0 mg/dL [facility] Protein (U) [Mass/Vol] mg/dL mg/dL [facility] Comment on above: No normal range esta blished. Urine Total Protein Creatinine Ratio Can not be calculated 0.00 - 0.20 [facility] Protein,Tot,Alvarado Uron 2024 Creatinine [Mass/Vol] 39.1 mg/dL Normal 39.0-259.0 [facility] Comment on above: Performed By: #### R ENP, UAX, CBC, URI, URTPRT, UMICAO, MG ####[address] [place], [place] 7[address]83 Lab Director: Eder Herrera MD#### PTHNCA ####[address] [phone] Lab Director: Jimenez Pruett MD Tot Prot. Conc. <6 Normal [facility] Comment on above: Result Comment: No n ormal range established. Performed By: #### R ENP, UAX, CBC, URI, URTPRT, UMICAO, MG ####[facility] [place], [place] 360[address]83 Lab Director: Eder Herrera MD#### PTHNCA ####[facility] [address] [place] [address] Lab Director: Jimenez Pruett MD TP/Cre Ratio Can not be calculated Normal 0.00-0.20 [facility] Comment on above: Performed By: #### R ENP, UAX, CBC, URI, URTPRT, UMICAO, MG ####[facility] [place] [address] Lab Director: Eder Herrera MD#### PTHNCA ####[facility] [place], [place] 0674708 lab Director: Jimenez Pruett MD Renal Function Panelon 11-01 Albumin [Mass/Vol] 4.1 g/dL 3.5 - 5.2 g/dL [facility] Anion gap [Moles/Vol] 12 mmol/L 9 - 16 mmol/L [facility] Calcium [Mass/Vol] 10 mg/dL 8.6 - 10. 4 mg/dL [facility] Chloride [Moles/Vol] 102 mmol/L 98 - 10 7 mmol/L [facility] CO2 [Moles/Vol] 23 mmol/L 20 - 31 mmol/L [facility] Creatinine [Mass/Vol] 1.6 mg/dL High 0.70 - 1.20 mg/dL [facility] Est, Glom Filt Rate 49 Low - PINF [facility] Comment on above: These results are not [...] 183 mg/dL High 74 - 99 mg/dL [facility] Interpretation and review of laboratory results Abnormal [facility] Phosphate [Mass/Vol] 3.2 mg/dL 2.5 - 4 .5 mg/dL [facility] Potassium [Moles/Vol] 4.7 mmol/L 3.7 - 5.3 mmol/L [facility] Sodium [Moles/Vol] 137 mmol/L 136 - 145 mmol/L [facility] Urea nitrogen [Mass/Vol] 30 mg/dL High 8 - 23 mg/dL [facility] Urea nitrogen/Creatinine [Mass ratio] 19 mg/mg 9 - 20 [facility] Albumin [Mass/Vol] 4.1 g/dL Normal 3.5-5.2 [facility] Comment on above: Performed By: #### R ENP, UAX, CBC, URI, URTPRT, UMICAO, MG ####[address] [place] [address] lab Director: Eder Herrera MD#### PTHNCA ####[address] [phone] Lab Director: Jimenez Pruett MD Anion gap [Moles/Vol] 12 mmol/L Normal 9-16 [facility] Comment on above: Performed By: #### R ENP, UAX, CBC, URI, URTPRT, UMICAO, MG ####[address] [place] [address] lab Director: Eder Herrera MD#### PTHNCA ####[address] [phone] lab Director: Jimenez Pruett MD BUN/CRE Ratio 19 Normal 9-20 [facility] Comment on above: Performed By: #### R ENP, UAX, CBC, URI, URTPRT, UMICAO, MG ####[address] [place] [address] lab Director: Eder Herrera MD#### PTHNCA ####[address] [phone] Lab Director: Jimenez Pruett MD Calcium [Mass/Vol] 10.0 mg/dL Normal 8.6-10.4 [facility] Comment on above: Performed By: #### R ENP, UAX, CBC, URI, URTPRT, UMICAO, MG ####[address] [place], [place] 9473683 Lab Director: Eder Herrera MD#### PTHNCA ####[address] [id number] Lab Director: Jimenez Pruett MD Chloride [Moles/Vol] 102 mmol/L Normal 98-107 [facility] Comment on above: Performed By: #### R ENP, UAX, CBC, URI, URTPRT, UMICAO, MG ####[address] [place] [address] Lab Director: Eder Herrera MD#### PTHNCA ####[address] [address] Lab Director: Jimenez Pruett MD CO2 [Moles/Vol] 23 mmol/L Normal 20-31 [facility] Comment on above: Performed By: #### R ENP, UAX, CBC, URI, URTPRT, UMICAO, MG ####[address] [place], [place] 5108583 Lab Director: Eder Herrera MD#### PTHNCA ####[address] [address] Lab Director: Jimenez Pruett MD Creatinine [Mass/Vol] 1.6 mg/dL High 0.70-1.20 [facility] Comment on above: Performed By: #### R ENP, UAX, CBC, URI, URTPRT, UMICAO, MG ####[address] [place] [address] lab Director: Eder Herrera MD#### PTHNCA ####[place] [address] [place], [place] [address]25[address] Lab Director: Jimenez Pruett MD GFR/1.73 sq M.predicted among non-blacks MDRD (S/P/Bld) [Vol rate/Area] 49 mL/min/{1.73_m2} Low >60 [facility] Comment on above: Result Comment: Thes [...] ENP, UAX, CBC, URI, URTPRT, UMICAO, MG ####[address] [place] 5083283 lab Director: Eder Herrera MD#### PTHNCA ####[place] [phone] Lab Director: Jimenez Pruett MD Glucose [Mass/Vol] 183 mg/dL High 74-99 [facility] Comment on above: Performed By: #### R ENP, UAX, CBC, URI, URTPRT, UMICAO, MG ####[address] [place] 5083283 lab Director: Eder Herrera MD#### PTHNCA ####[address] [phone] Lab Director: Jimenez Pruett MD Phosphorus, Inorg. 3.2 mg/dL Normal 2.5-4.5 [facility] Comment on above: Performed By: #### R ENP, UAX, CBC, URI, URTPRT, UMICAO, MG ####[address] [place] [address] Lab Director: Eder Herrera MD#### PTHNCA ####[place] [address] [place] [address] Lab Director: Jimenez Pruett MD Potassium [Moles/Vol] 4.7 mmol/L Normal 3.7-5.3 [facility] Comment on above: Performed By: #### R ENP, UAX, CBC, URI, URTPRT, UMICAO, MG ####[address] [place], [place] 3465[address] Lab Director: Eder Herrera MD#### PTHNCA ####[address] [phone] Director: Jimenez Pruett MD Sodium [Moles/Vol] 137 mmol/L Normal 136-145 [facility] Comment on above: Performed By: #### R ENP, UAX, CBC, URI, URTPRT, UMICAO, MG ####[address] , [place] 9133283 Lab Director: Eder Herrera MD#### PTHNCA ####[address] [address] Lab Director: Jimenez Pruett MD Urea nitrogen [Mass/Vol] 30 mg/dL High 8-23 [facility] Comment on above: Performed By: #### R ENP, UAX, CBC, URI, URTPRT, UMICAO, MG ####[address] [place], [place] 713[address]83 Lab Director: Eder Herrera MD#### PTHNCA ####[place] [address] [place] [address] Lab Director: Jimenez Pruett MD UA w/Reflex Cultureon 2024 Bilirubin, SemiQt,Ur Negative Normal NEG [facility] Comment on above: Performed By: #### R ENP, UAX, CBC, URI, URTPRT, UMICAO, MG ####[facility] [place], [place] 115[address]183 Lab Director: Eder Herrera MD#### PTHNCA ####[address] [phone] Lab Director: Jimenez Pruett MD Blood, Urine Negative Normal NEG [facility] Comment on above: Performed By: #### R ENP, UAX, CBC, URI, URTPRT, UMICAO, MG ####[address] [place], [place] 466[address]83 lab Director: Eder Herrera MD#### PTHNCA ####[address] [phone] Lab Director: Jimenez Pruett MD Clarity (U) Clear Normal CLEAR [facility] Comment on above: Performed By: #### R ENP, UAX, CBC, URI, URTPRT, UMICAO, MG ####[address] [place], [place] 6100083 Lab Director: Eder Herrera MD#### PTHNCA ####[address] [address] Lab Director: Jimenez Pruett MD Color (U) Yellow Normal YEL [facility] Comment on above: Performed By: #### R ENP, UAX, CBC, URI, URTPRT, UMICAO, MG ####[address] [place], [place] 2249683 lab Director: Eder Herrera MD#### PTHNCA ####[address] [id number] Lab Director: Jimenez Pruett MD Glucose Ql (U) 3+ mg/dL Abnormal NEG [facility] Comment on above: Performed By: #### R ENP, UAX, CBC, URI, URTPRT, UMICAO, MG ####[address] [place], [place] 7834[address] Lab Director: Eder Herrera MD#### PTHNCA ####[address] [id number] Lab Director: Jimenez Pruett MD Ketones Ql (U) Negative Normal NEG [facility] Comment on above: Performed By: #### R ENP, UAX, CBC, URI, URTPRT, UMICAO, MG ####[address] [place], [place] 41[address] Lab Director: Eder Herrera MD#### PTHNCA ####[address] [phone] Lab Director: Jimenez Pruett MD Leukocyte esterase Test strip Ql (U) Negative Normal NEG [facility] Comment on above: Performed By: #### R ENP, UAX, CBC, URI, URTPRT, UMICAO, MG ####[address] [place], [place] 69[address]83 Lab Director: Eder Herrera MD#### PTHNCA ####[address] [address] Lab Director: Jimenez Pruett MD Nitrite,Ur Negative Normal NEG [facility] Comment on above: Performed By: #### R ENP, UAX, CBC, URI, URTPRT, UMICAO, MG ####[address] [place], [place] 7761583 Lab Director: Eder Herrera MD#### PTHNCA ####[address] [address] Lab Director: Jimenez Pruett MD PH,Ur 6.0 Normal 5.0-9.0 [facility] Comment on above: Performed By: #### R ENP, UAX, CBC, URI, URTPRT, UMICAO, MG ####[address] [place], [place] 33[address] Lab Director: Eder Herrera MD#### PTHNCA ####[address] [address] Lab Director: Jimenez Pruett MD Protein Ql (U) Negative Normal NEG [facility] Comment on above: Performed By: #### R ENP, UAX, CBC, URI, URTPRT, UMICAO, MG ####[address] [place] [address] [facility] Director: Eder Herrera MD#### PTHNCA ####[place] [address] Lab Director: Jimenez Pruett MD Spec. [place],Ur <1.005 Low 1.010-1.020 [facility] Comment on above: Performed By: #### R ENP, UAX, CBC, URI, URTPRT, UMICAO, MG ####[address] [place] [address] Lab Director: Eder Herrera MD#### PTHNCA ####[address] [address] Lab Director: Jimenez Pruett MD Urobilinogen,Ur Normal Normal 0.0-1.0 [facility] Comment on above: Performed By: #### R ENP, UAX, CBC, URI, URTPRT, UMICAO, MG ####[address] [place] [address] lab Director: Eder Herrera MD#### PTHNCA ####[facility] [address] [place] [address] lab Director: Jimenez Pruett MD Uric Acidon 11-01-2024 Urate [Mass/Vol] 4.8 mg/dL 3.4 - 7.0 mg/dL [facility] Urate [Mass/Vol] 4.8 mg/dL Normal 3.4-7.0 [facility] Comment on above: Performed By: #### R ENP, UAX, CBC, URI, URTPRT, UMICAO, MG ####[facility] [place] [address] lab Director: Eder Herrera MD#### PTHNCA ####[facility] [address] [place] [address] lab Director: Jimenez Pruett MD Urinalysis with Reflex to Cu ltureon 11-01-2024 Bilirubin Ql (U) Negative NEGATIVE [facility] Clarity (U) Clear Clear [facility] Color (U) Yellow Yellow [facility] Glucose Test strip (U) [Mass/Vol] 3+ Abnormal NEGATIVE mg/dL [facility] Hemoglobin Auto test strip Ql (U) Negative NEGATIVE [facility] Interpretation and review of laboratory results Abnormal [facility] Ketones (U) [Mass/Vol] Negative NEGAT PAO mg/dL [facility] Leukocyte esterase Test strip Ql (U) Negative NEGATIVE [facility] Nitrite Ql (U) Negative NEGATIVE [facility] pH (U) 6 [pH] 5.0 - 9.0 [facility] Protein (U) [Mass/Vol] Negative NEGAT PAO mg/dL [facility] Specific gravity (U) [Rel density] Low 1.010 - 1.020 [facility] Urobilinogen Qn (U) Normal 0.0 - 1. 0 EU/dL [facility] Urinalysis,Microon 5 Epithelial cells LM Ql (Urine sed) 10 TO 20 Normal 0-5 [facility] Comment on above: Performed By: #### R ENP, UAX, CBC, URI, URTPRT, UMICAO, MG ####[facility] [place], [place] 8826783 Lab Director: Eder Herrera MD#### PTHNCA ####[address] [id number] Lab Director: Jimenez Pruett MD Urine RBC's 0 TO 2 Normal 0-2 [facility] Comment on above: Performed By: #### R ENP, UAX, CBC, URI, URTPRT, UMICAO, MG ####[facility] [place] [address] lab Director: Eder Herrera MD#### PTHNCA ####[address] [id number] Lab Director: Jimenez Pruett MD Urine WBC's 2 TO 5 Normal 0-5 [facility] Comment on above: Performed By: #### R ENP, UAX, CBC, URI, URTPRT, UMICAO, MG ####[address] [place] [address] Lab Director: Eder Herrera MD#### PTHNCA ####[address] [id number] Lab Director: Jimenez Pruett MD MRI FOOT RIGHT WO CONTRASTon 10-23-2024 MRI FOOT RIGHT WO CONTRAST Normal [facility] Basic Metabolic Panelon 09-23 Anion gap [Moles/Vol] 9 mmol/L 9 - 16 mmol/L [facility] Calcium [Mass/Vol] 10.6 mg/dL High 8.6 - 10. 4 mg/dL [facility] Chloride [Moles/Vol] 104 mmol/L 98 - 10 7 mmol/L [facility] CO2 [Moles/Vol] 25 mmol/L 20 - 31 mmol/L [facility] Creatinine [Mass/Vol] 1.8 mg/dL High 0.70 - 1.20 mg/dL [facility] Yuliet [place]t Rate 41 Low - PINF [facility] Comment on above: These results are not [...] [Mass/Vol] 90 mg/dL 74 - 99 mg/dL [facility] Potassium [Moles/Vol] 5.5 mmol/L High 3.7 - 5.3 mmol/L [facility] Sodium [Moles/Vol] 138 mmol/L 136 - 145 mmol/L [facility] Urea nitrogen [Mass/Vol] 33 mg/dL High 8 - 23 mg/dL [facility] Urea nitrogen/Creatinine [Mass ratio] 18 mg/mg - 20 [facility] Basic Metabolic Profon 10-20 Anion gap [Moles/Vol] 9 mmol/L Normal 9-16 [facility] Comment on above: Performed By: #### B FACULTY RESEARCH PHYSICIAN, BMP ####[facility] [place] [address] Lab Director: Eder Herrera MD BUN/CRE Ratio 18 Normal -20 [facility] Comment on above: Performed By: #### B FACULTY RESEARCH PHYSICIAN, BMP ####[facility] [place] [address] Lab Director: Eder Herrera MD Calcium [Mass/Vol] 10.6 mg/dL High 8.6-10.4 [facility] Comment on above: Performed By: #### B FACULTY RESEARCH PHYSICIAN, BMP ####[facility] [place] [place] , [place] 179[address]83 Lab Director: Eder Herrera MD Chloride [Moles/Vol] 104 mmol/L Normal 98-107 [facility] Comment on above: Performed By: #### B FACULTY RESEARCH PHYSICIAN, BMP ####[facility] [place] [place] , [place] 96[address]183 Lab Director: Eder Herrera MD CO2 [Moles/Vol] 25 mmol/L Normal 20-31 [facility] Comment on above: Performed By: #### B FACULTY RESEARCH PHYSICIAN, BMP ####[facility] [place] [address] Lab Director: Eder Herrera MD Creatinine [Mass/Vol] 1.8 mg/dL High 0.70-1.20 [facility] Comment on above: Performed By: #### B FACULTY RESEARCH PHYSICIAN, BMP ####[address] , [place] 450[address]83 Lab Director: Eder Herrera MD GFR/1.73 sq M.predicted among non-blacks MDRD (S/P/Bld) [Vol rate/Area] 41 mL/min/{1.73_m2} Low >60 [facility] Comment on above: Result Comment: Thes [...] renal tubular secretion. Performed By: #### B FACULTY RESEARCH PHYSICIAN, BMP ####[facility] [place] , [place] 0684[address] Lab Director: Eder Herrera MD Glucose [Mass/Vol] 90 mg/dL Normal 74-99 [facility] Comment on above: Performed By: #### B FACULTY RESEARCH PHYSICIAN, BMP ####[facility] [place] [place] , [place] 0[address]83 Lab Director: Eder Herrera MD Potassium [Moles/Vol] 5.5 mmol/L High 3.7-5.3 [facility] Comment on above: Performed By: #### B FACULTY RESEARCH PHYSICIAN, BMP ####[facility] [place] [address] Lab Director: Eder Herrera MD Sodium [Moles/Vol] 138 mmol/L Normal 136-145 [facility] Comment on above: Performed By: #### B FACULTY RESEARCH PHYSICIAN, BMP ####[facility] [place] [address] Lab Director: Eder Herrera MD Urea nitrogen [Mass/Vol] 33 mg/dL High 8-23 [facility] Comment on above: Performed By: #### B FACULTY RESEARCH PHYSICIAN, BMP ####[facility] [place] [address] Lab Director: Eder Herrera MD Brain Natri. Peptideon 10-20 Natriuretic peptide B (Bld) [Mass/Vol] 269 pg/mL High 0-125 [facility] Comment on above: Performed By: #### B FACULTY RESEARCH PHYSICIAN, BMP ####[address] , [place] [id number] Lab Director: Eder Herrera MD Brain Natriuretic Peptideon 10-20-2024 Natriuretic peptide B (Bld) [Mass/Vol] 269 pg/mL High 0 - 125 pg/mL [facility] No Panel Informationon 10-20 Interpretation and review of laboratory results Abnormal [facility] Hemoglobin A1Con 10-04-2024 Average glucose Estimated from glycated hemoglobin (Bld) [Mass/Vol] 169 mg/dL [facility] Comment on above: The ADA and AACC rec ommend providing the estimated average glucose result to permit better patient understanding of their HBA1c result. HbA1c (Bld) [Mass fraction] 7.5 % High 4.0 - 6.0 % [facility] Interpretation and review of laboratory results Abnormal [facility] Glucose [Mass/Vol] 169 mg/dL Normal [facility] Comment on above: Result Comment: The ADA and AACC recommend providing the estimated average glucose result to permit better patient understanding of their HBA1c result. Performed By: #### G LYHGB ####[facility] [address] [place], [place] [address] lab Director: Jimenez Pruett MD HbA1c (Bld) [Mass fraction] 7.5 % High 4.0-6.0 [facility] Comment on above: Performed By: #### G LYHGB ####[facility] [address] [place], [place] 7948708 lab Director: Jimenez Pruett MD PSA Screeningon 10-04-2024 Prostate specific Ag [Mass/Vol] 0.51 ng/mL 0.00 - 4.00 ng/mL [facility] Comment on above: The Cyndi ECLIA as say is used. Results obtained with different assay methods cannot be used interchangeably. [facility] PSA, Screeningon 10-04-2024 Prostatic Spec. Ag 0.51 ng/mL Normal 0.00-4.00 [facility] Comment on above: Result Comment: The Cyndi ECLIA assay is used. Results obtained with different assay methods cannot be used interchangeably. Performed By: #### P SAS ####[facility] [place], [place] [address] lab Director: Jimenez Pruett MD CBCon 09-20-2024 Erythrocyte distribution width (RBC) [Ratio] 13.4 % 11.8 - 14.4 % [facility] Hematocrit (Bld) [Volume fraction] 35.8 % Low 40.7 - 50.3 % [facility] Hemoglobin (Bld) [Mass/Vol] 11.7 g/dL Low 13.0 - 17.0 g/dL [facility] Interpretation and review of laboratory results Abnormal [facility] MCH (RBC) [Entitic mass] 30.5 pg 25.2 - 33.5 pg [facility] MCHC (RBC) [Mass/Vol] 32.7 g/dL 28.4 - 34.8 g/dL [facility] MCV (RBC) [Entitic vol] 93.5 fL 82.6 - 102.9 fL [facility] Nucleated RBC/100 WBC (Bld) [Ratio] 0 % 0.0 per 100 WBC [facility] Platelet mean volume (Bld) [Entitic vol] 11 fL 8.1 - 13.5 fL [facility] Platelets (Bld) [#/Vol] 292 10*3/uL [facility] RBC (Bld) [#/Vol] 3.83 10*6/uL Low 4.21 - 5.7 7 m/uL [facility] WBC other (Bld) [#/Vol] 7.9 [facility] Erythrocyte distribution width (RBC) [Ratio] 13.4 % Normal 11.8-14.4 [facility] Comment on above: Performed By: #### P THNCA ####[place] [address] Lab Director: Jimenez Pruett MD#### VALARIE, MG, URI, CBC ####[address] [place] [address] Lab Director: Eder Herrera MD Hematocrit (Bld) [Volume fraction] 35.8 % Low 40.7-50.3 [facility] Comment on above: Performed By: #### P THNCA ####[facility] [address] [place] [address] Lab Director: Jimenez Pruett MD#### RENP, MG, URI, CBC ####[address] [place] [address] Lab Director: Eder Herrera MD Hemoglobin (Bld) [Mass/Vol] 11.7 g/dL Low 13.0-17.0 [facility] Comment on above: Performed By: #### P THNCA ####[address] [address] Lab Director: Jimenez Pruett MD#### RENP, MG, URI, CBC ####[address] [place] [address] lab Director: Eder Herrera MD MCH (RBC) [Entitic mass] 30.5 pg Normal 25.2-33.5 [facility] Comment on above: Performed By: #### P THNCA ####[address] [address] Lab Director: Jimenez Pruett MD#### RENP, MG, URI, CBC ####[address] [place] [address] lab Director: Eder Herrera MD MCHC (RBC) [Mass/Vol] 32.7 g/dL Normal 28.4-34.8 [facility] Comment on above: Performed By: #### P THNCA ####[address] [address] Lab Director: Jimenez Pruett MD#### RENP, MG, URI, CBC ####[address] [place] [address] Lab Director: Eder Herrera MD MCV (RBC) [Entitic vol] 93.5 fL Normal 82.6-102.9 [facility] Comment on above: Performed By: #### P THNCA ####[address] [address] Lab Director: Jimenez Pruett MD#### RENP, MG, URI, CBC ####[address] [place] [address] Lab Director: Eder Herrera MD NRBC Automated 0.0 per 100 WBC Normal 0.0 [facility] Comment on above: Performed By: #### P THNCA ####[address] [place] [address] Lab Director: Jimenez Pruett MD#### RENP, MG, URI, CBC ####[address] [place] [address] Lab Director: Eder Herrera MD Platelet mean volume (Bld) [Entitic vol] 11.0 fL Normal 8.1-13.5 [facility] Comment on above: Performed By: #### P THNCA ####[address] [address] Lab Director: Jimenez Pruett MD#### RENP, MG, URI, CBC ####[address] [place] [address] Lab Director: Eder Herrera MD Platelets (Bld) [#/Vol] 292 10*3/uL Normal 138-453 [facility] Comment on above: Performed By: #### P THNCA ####[address] [address] Lab Director: Jimenez Pruett MD#### RENP, MG, URI, CBC ####[address] [place] [address] Lab Director: Eder Herrera MD RBC (Bld) [#/Vol] 3.83 10*6/uL Low 4.21-5.77 [facility] Comment on above: Performed By: #### P THNCA ####[address] [address] Lab Director: Jimenez Pruett MD#### RENP, MG, URI, CBC ####[address] [place] [address] Lab Director: Eder Herrera MD WBC (Bld) [#/Vol] 7.9 10*3/uL Normal 3.5-11.3 [facility] Comment on above: Performed By: #### P THNCA ####[facility] [address] [place] [address] Lab Director: Jimenez Pruett MD#### RENP, MG, URI, CBC ####[facility] [place] [address] Lab Director: Eder Herrera MD Magnesiumon 09-20-2024 Magnesium [Mass/Vol] 2.2 mg/dL 1.6 - 2 .4 mg/dL [facility] Magnesium [Mass/Vol] 2.2 mg/dL Normal 1.6-2.4 [facility] Comment on above: Performed By: #### P THNCA ####[address] [place] [address] Lab Director: Jimenez Pruett MD#### RENP, MG, URI, CBC ####[facility] [place] [address] Lab Director: Eder Herrera MD Microscopic Urinalysison Epithelial cells LM.HPF (Urine sed) [#/Area] None [facility] RBC LM.HPF (Urine sed) [#/Area] None [facility] WBC LM.HPF (Urine sed) [#/Area] None [facility] No Panel Informationon 09-20 [facility] PTH, Intacton 09-20-2024 Interpretation and review of laboratory results Abnormal [facility] Parathyrin.intact [Mass/Vol] 120.0 pg/mL High 17.9 - 58.6 pg/mL [facility] PTH, Intact 120.0 pg/mL High 17.9-58.6 [facility] Comment on above: Performed By: #### P THNCA ####[facility] [address] [place] [address] Lab Director: Jimenez Pruett MD#### RENP, MG, URI, CBC ####[address] [place], [place] 2[address] Lab Director: Eder Herrera MD Protein / creatinine ratio, urineon 09-20-2024 Creatinine (U) [Mass/Vol] 43.5 mg/dL 39.0 - 259.0 mg/dL [facility] Protein (U) [Mass/Vol] 7 mg/dL [facility] n [facility] Comment on above: No normal range esta blished. Urine Total Protein Creatinine Ratio 0.16 0.00 - 0.20 [facility] Protein,Tot,Alvarado Uron 2024 Creatinine [Mass/Vol] 43.5 mg/dL Normal 39.0-259.0 [facility] Comment on above: Performed By: #### BOLIVAR DAVIS URTPRT ####[address] , [facility]83 Lab Director: Eder Herrera MD Tot Prot. Conc. 7 mg/dL Normal [facility] Comment on above: Result Comment: No n ormal range established. Performed By: #### BOLIVAR DAVIS URTPRT ####[address] [place], [place] 30[address]783 Lab Director: Eder Herrera MD TP/Cre Ratio 0.16 Normal 0.00-0.20 [facility] Comment on above: Performed By: #### U AXBOLIVAR URTPRT ####[address] , [place] 0[address]83 Lab Director: Eder Herrera MD Renal Function Panelon 09-20 Albumin [Mass/Vol] 4 g/dL 3.5 - 5.2 g/dL [facility] Anion gap [Moles/Vol] 12 mmol/L 9 - 16 mmol/L [facility] Calcium [Mass/Vol] 11 mg/dL High 8.6 - 10. 4 mg/dL [facility] Chloride [Moles/Vol] 99 mmol/L 98 - 10 7 mmol/L [facility] CO2 [Moles/Vol] 24 mmol/L 20 - 31 mmol/L [facility] Creatinine [Mass/Vol] 2.1 mg/dL High 0.70 - 1.20 mg/dL [facility] Est, Glom Filt Rate 34 Low - PINF [facility] Comment on above: These results are [...] 169 mg/dL High 74 - 99 mg/dL [facility] Interpretation and review of laboratory results Abnormal [facility] Phosphate [Mass/Vol] 2.5 mg/dL 2.5 - 4 .5 mg/dL [facility] Potassium [Moles/Vol] 4.5 mmol/L 3.7 - 5.3 mmol/L [facility] Sodium [Moles/Vol] 135 mmol/L Low 136 - 145 mmol/L [facility] Urea nitrogen [Mass/Vol] 45 mg/dL High 8 - 23 mg/dL [facility] Urea nitrogen/Creatinine [Mass ratio] 21 mg/mg High 9 - 20 [facility] Albumin [Mass/Vol] 4.0 g/dL Normal 3.5-5.2 [facility] Comment on above: Performed By: #### P THNCA ####[facility] [address] [place] [address] Lab Director: Jimenez Pruett MD#### RENP, MG, URI, CBC ####[facility] [place] [address] Lab Director: Eder Herrera MD Anion gap [Moles/Vol] 12 mmol/L Normal 9-16 [facility] Comment on above: Performed By: #### P THNCA ####[facility] [place] [address] Lab Director: Jimenez Pruett MD#### RENP, MG, URI, CBC ####[address] [place], [place] [address] Lab Director: Eder Herrera MD BUN/CRE Ratio 21 High 9-20 [facility] Comment on above: Performed By: #### P THNCA ####[address] [address] Lab Director: Jimenez Pruett MD#### RENP, MG, URI, CBC ####[address] [place], [place] [address]83 Lab Director: Eder Herrera MD Calcium [Mass/Vol] 11.0 mg/dL High 8.6-10.4 [facility] Comment on above: Performed By: #### P THNCA ####[address] [address] Lab Director: Jimenez Pruett MD#### RENP, MG, URI, CBC ####[address] 3234883 Lab Director: Eder Herrera MD Chloride [Moles/Vol] 99 mmol/L Normal 98-107 [facility] Comment on above: Performed By: #### P THNCA ####[address] [address] Lab Director: Jimenez Pruett MD#### RENP, MG, URI, CBC ####[address] [place] [address] Lab Director: Eder Herrera MD CO2 [Moles/Vol] 24 mmol/L Normal 20-31 [facility] Comment on above: Performed By: #### P THNCA ####[facility] [place] [address] Lab Director: Jimenez Pruett MD#### RENP, MG, URI, CBC ####[address] [place], [place] [address]38[address] Lab Director: Eder Herrera MD Creatinine [Mass/Vol] 2.1 mg/dL High 0.70-1.20 [facility] Comment on above: Performed By: #### P THNCA ####[address] [address] Lab Director: Jimenez Pruett MD#### RENP, MG, URI, CBC ####[address] [place], [place] [address] Lab Director: Eder Herrera MD GFR/1.73 sq M.predicted among non-blacks MDRD (S/P/Bld) [Vol rate/Area] 34 mL/min/{1.73_m2} Low >60 [facility] Comment on above: Result Comment: Thes [...] tubular secretion. Performed By: #### P THNCA ####[facility] [address] [place] [address] Lab Director: Jimenez Pruett MD#### RENP, MG, URI, CBC ####[address] [place], [place] [address]83 Lab Director: Eder Herrera MD Glucose [Mass/Vol] 169 mg/dL High 74-99 [facility] Comment on above: Performed By: #### P THNCA ####[address] [place] [address] Lab Director: Jimenez Pruett MD#### RENP, MG, URI, CBC ####[address] [place] [address] Lab Director: Eder Herrera MD Phosphorus, Inorg. 2.5 mg/dL Normal 2.5-4.5 [facility] Comment on above: Performed By: #### P THNCA ####[address] [address] Lab Director: Jimenez Pruett MD#### RENP, MG, URI, CBC ####[address] [place] [address] Lab Director: Eder Herrera MD Potassium [Moles/Vol] 4.5 mmol/L Normal 3.7-5.3 [facility] Comment on above: Performed By: #### P THNCA ####[address] [address] Lab Director: Jimenez Pruett MD#### RENSpring, MG, URI, CBC ####[address] [place], [place] [address] Lab Director: Eder Herrera MD Sodium [Moles/Vol] 135 mmol/L Low 136-145 [facility] Comment on above: Performed By: #### P THNCA ####[address] [address] Lab Director: Jimenez Pruett MD#### RENP, MG, URI, CBC ####[address] [place], [place] [address] Lab Director: Eder Herrera MD Urea nitrogen [Mass/Vol] 45 mg/dL High 8-23 [facility] Comment on above: Performed By: #### P THNCA ####[address] [place], [place] [address] Lab Director: Jimenez Pruett MD#### RENP, MG, URI, CBC ####[address] , [place] 9919[address] Lab Director: Eder Herrera MD UA w/Reflex Cultureon 2024 Bilirubin, SemiQt,Ur Negative Normal NEG [facility] Comment on above: Performed By: #### U AX, UMICAO, URTPRT ####[address] [place] [address] Lab Director: Eder Herrera MD Blood, Urine Negative Normal NEG [facility] Comment on above: Performed By: #### U AX, UMICAO, URTPRT ####[address] [place] [address] Lab Director: Eder Herrera MD Clarity (U) Clear Normal CLEAR [facility] Comment on above: Performed By: #### U AX, UMICAO, URTPRT ####[address] , [place] 394[address]83 Lab Director: Eder Herrera MD Color (U) Yellow Normal YEL [facility] Comment on above: Performed By: #### U AX, UMICAO, URTPRT ####[address] [place] [address] Lab Director: Eder Herrera MD Glucose Ql (U) 3+ mg/dL Abnormal NEG [facility] Comment on above: Performed By: #### U AX, UMICAO, URTPRT ####[address] , [place] 533[address]83 Lab Director: Eder Herrera MD Ketones Ql (U) Negative Normal NEG [facility] Comment on above: Performed By: #### U AX, UMICAO, URTPRT ####[address] [place] [address] Lab Director: Eder Herrera MD Leukocyte esterase Test strip Ql (U) Negative Normal NEG [facility] Comment on above: Performed By: #### U AX, UMICAO, URTPRT ####[address] [place] [address] [facility] Director: Eder Herrera MD Nitrite,Ur Negative Normal NEG [facility] Comment on above: Performed By: #### U AX, UMICAO, URTPRT ####[address] [place] [address] lab Director: Eder Herrera MD PH,Ur 6.0 Normal 5.0-9.0 [facility] Comment on above: Performed By: #### U AX, UMICAO, URTPRT ####[address] [place] [address] lab Director: Eder Herrera MD Protein Ql (U) Negative Normal NEG [facility] Comment on above: Performed By: #### U AX, UMICAO, URTPRT ####[address] [place] [address] lab Director: Eder Herrera MD Spec. [place],Ur 1.010 Normal 1.010-1.020 [facility] Comment on above: Performed By: #### U AX, UMICAO, URTPRT ####[address] [place] [address] lab Director: Eder Herrera MD Urobilinogen,Ur Normal Normal 0.0-1.0 [facility] Comment on above: Performed By: #### U AX, UMICAO, URTPRT ####[address] [place] [address] lab Director: Eder Herrera MD Uric Acidon 09-20-2024 Urate [Mass/Vol] 5.3 mg/dL 3.4 - 7.0 mg/dL [facility] Urate [Mass/Vol] 5.3 mg/dL Normal 3.4-7.0 [facility] Comment on above: Performed By: #### P THNCA ####[facility] [address] [place], [place] [address]8 lab Director: Jimenez Pruett MD#### RENP, MG, URI, CBC ####[facility] [place] [address] lab Director: Eder Herrera MD Urinalysis with Reflex to Cu ltureon 09-20-2024 Bilirubin Ql (U) Negative NEGATIVE [facility] Clarity (U) Clear Clear [facility] Color (U) Yellow Yellow [facility] Glucose Test strip (U) [Mass/Vol] 3+ Abnormal NEGATIVE mg/dL [facility] Hemoglobin Auto test strip Ql (U) Negative NEGATIVE [facility] Interpretation and review of laboratory results Abnormal [facility] Ketones (U) [Mass/Vol] Negative NEGAT PAO mg/dL [facility] Leukocyte esterase Test strip Ql (U) Negative NEGATIVE [facility] Nitrite Ql (U) Negative NEGATIVE [facility] pH (U) 6 [pH] 5.0 - 9.0 [facility] Protein (U) [Mass/Vol] Negative NEGAT PAO mg/dL [facility] Specific gravity (U) [Rel density] 1.01 1.010 - 1.020 [facility] Urobilinogen Qn (U) Normal 0.0 - 1. 0 EU/dL [facility] Urinalysis,Microon 5 Epithelial cells LM Ql (Urine sed) None Normal 0-5 [facility] Comment on above: Performed By: #### U AX, UMICAO, URTPRT ####[facility] [place] [address] lab Director: Eder Herrera MD Urine RBC's None Normal 0-2 [facility] Comment on above: Performed By: #### U AX, UMICAO, URTPRT ####[facility] [place] [address] lab Director: Eder Herrera MD Urine WBC's None Normal 0-5 [facility] Comment on above: Performed By: #### U AX, UMICAO, URTPRT ####[facility] [place] [address] lab Director: Eder Herrera MD XR TOE RIGHT (MIN 2 VIEWS)on 09-09-2024 XR TOE RIGHT (MIN 2 VIEWS) Normal [facility] Magnesiumon 08-23-2024 Magnesium [Mass/Vol] 2.2 mg/dL 1.6 - 2 .4 mg/dL [facility] Magnesium [Mass/Vol] 2.2 mg/dL Normal 1.6-2.4 [facility] Comment on above: Performed By: #### M G, RENP ####[address] [place] [address] lab Director: Eder Herrera MD No Panel Informationon 08-23 [facility] Renal Function Panelon 08-23 Albumin [Mass/Vol] 4.2 g/dL 3.5 - 5.2 g/dL [facility] Anion gap [Moles/Vol] 10 mmol/L 9 - 16 mmol/L [facility] Calcium [Mass/Vol] 10.5 mg/dL High 8.6 - 10. 4 mg/dL [facility] Chloride [Moles/Vol] 103 mmol/L 98 - 10 7 mmol/L [facility] CO2 [Moles/Vol] 24 mmol/L 20 - 31 mmol/L [facility] Creatinine [Mass/Vol] 1.6 mg/dL High 0.70 - 1.20 mg/dL [facility] Est, Glom Filt Rate 48 Low - PINF [facility] Comment on above: These results are not [...] 147 mg/dL High 74 - 99 mg/dL [facility] Interpretation and review of laboratory results Abnormal [facility] Phosphate [Mass/Vol] 2.4 mg/dL Low 2.5 - 4 .5 mg/dL [facility] Potassium [Moles/Vol] 4.9 mmol/L 3.7 - 5.3 mmol/L [facility] Sodium [Moles/Vol] 137 mmol/L 136 - 145 mmol/L [facility] Urea nitrogen [Mass/Vol] 29 mg/dL High 8 - 23 mg/dL [facility] Urea nitrogen/Creatinine [Mass ratio] 18 mg/mg 9 - 20 [facility] Albumin [Mass/Vol] 4.2 g/dL Normal 3.5-5.2 [facility] Comment on above: Performed By: #### M G, RENP ####[address] [place] [address] lab Director: Eder Herrera MD Anion gap [Moles/Vol] 10 mmol/L Normal 9-16 [facility] Comment on above: Performed By: #### M G, RENP ####[facility] [place] [address] lab Director: Eder Herrera MD BUN/CRE Ratio 18 Normal 9-20 [facility] Comment on above: Performed By: #### M G, RENP ####[facility] [place] [address] lab Director: Eder Herrera MD Calcium [Mass/Vol] 10.5 mg/dL High 8.6-10.4 [facility] Comment on above: Performed By: #### M Yifan, RENP ####[facility] [place] , [place] 6794383 Lab Director: Eder Herrera MD Chloride [Moles/Vol] 103 mmol/L Normal 98-107 [facility] Comment on above: Performed By: #### M G, RENP ####[facility] [place] [address] Lab Director: Eder Herrera MD CO2 [Moles/Vol] 24 mmol/L Normal 20-31 [facility] Comment on above: Performed By: #### M Yifan, RENP ####[address] [place] [address] Lab Director: Eder Herrera MD Creatinine [Mass/Vol] 1.6 mg/dL High 0.70-1.20 [facility] Comment on above: Performed By: #### Bettina Saha, RENP ####[address] [place] [address] Lab Director: Eder Herrera MD GFR/1.73 sq M.predicted among non-blacks MDRD (S/P/Bld) [Vol rate/Area] 48 mL/min/{1.73_m2} Low >60 [facility] Comment on above: Result Comment: Thes [...] secretion. Performed By: #### M Yifan, RENP ####[address] [place] [address] lab Director: Eder Herrera MD Glucose [Mass/Vol] 147 mg/dL High 74-99 [facility] Comment on above: Performed By: #### Bettina Saha, RENP ####[address] , [place] 0389[address] Lab Director: Eder Herrera MD Phosphorus, Inorg. 2.4 mg/dL Low 2.5-4.5 [facility] Comment on above: Performed By: #### Bettina Saha, RENP ####[address] , [place] 64[address]83 Lab Director: Eder Herrera MD Potassium [Moles/Vol] 4.9 mmol/L Normal 3.7-5.3 [facility] Comment on above: Performed By: #### Bettina Saha, RENP ####[address] , [place] [address] Lab Director: Eder Herrera MD Sodium [Moles/Vol] 137 mmol/L Normal 136-145 [facility] Comment on above: Performed By: #### Bettina Saha, RENP ####[address] , [place] 413[address] Lab Director: Eder Herrera MD Urea nitrogen [Mass/Vol] 29 mg/dL High 8-23 [facility] Comment on above: Performed By: #### Bettina Saha, RENP ####[address] , [place] [id number] Lab Director: Eder Herrera MD XR TOE RIGHT (MIN 2 VIEWS)on 08-20-2024 XR TOE RIGHT (MIN 2 VIEWS) Normal [facility] Cult,Woundon 08-19-2024 Cult,Wound Susceptible [facility] Comment on above: Performed By: #### W DC ####[address] [id number] Lab Director: Jimenez Pruett [address] , [place] [address] lab Director: Eder Herrera MD Basophils Auto (Bld) [#/Vol] on 08-02-2024 Basophils (Bld) [#/Vol] Automated basoph il count 0.0-0.1 [facility] Basophils/100 WBC Auto (Bld) on 08-02-2024 Basophils/100 WBC (Bld) Automated basophil % 0. 2-2.0 [facility] Eosinophils/100 WBC Auto (Bl d)on 08-02-2024 Eosinophils/100 WBC (Bld) Automated eosinophil % 0.9-7.0 [facility] Erythrocyte distribution wid th Auto (RBC) [Ratio]on 08-02-2024 Erythrocyte distribution width (RBC) [Ratio] Erythrocyte distribution width [Ratio] by Automated count 11.0-15.0 [facility] Estimated glomerular filtrat ion rate (GFR) non- Americanon 08-02-2024 GFR/1.73 sq M.predicted among non-blacks MDRD (S/P/Bld) [Vol rate/Area] Estimated glomerular filtration rate (GFR) non- Low >=60 mL/min/1.73 m 2 [facility] Hematocrit Auto (Bld) [Volum e fraction]on 08-02-2024 Hematocrit (Bld) [Volume fraction] Hematocrit [Volume Fraction] of Blood by Automated count Low 42.0-54.0 [facility] Hemoglobin [Mass/volume] in Bloodon 08-02-2024 Hemoglobin (Bld) [Mass/Vol] Hemoglobin [Mass/volume] in Blood Low 14.0-18.0 [facility] Laboratory - Chemistry and C hemistry - challengeon 08-02-2024 Calcium [Mass/Vol] 8.4 mg/dL Low 8.5-10.1 [facility] Chloride [Moles/Vol] 99 mmol/L 98-107 [facility] CO2 [Moles/Vol] 27.6 mmol/L 21.0-32.0 [facility] Creatinine [Mass/Vol] 2.35 mg/dL High 0.70-1.30 [facility] GFR/1.73 sq M.predicted MDRD (S/P/Bld) [Vol rate/Area] 34 mL/min/{1.73_m2} Low >=60 mL/min/1.73 m 2 [facility] Glucose [Mass/Vol] 132 mg/dL High 74-106 [facility] Potassium [Moles/Vol] 3.7 mmol/L 3.5-5.1 [facility] Sodium [Moles/Vol] 135 mmol/L Low 136-145 [facility] Urea nitrogen [Mass/Vol] 68.0 mg/dL High 7.0-18.0 [facility] Urea nitrogen/Creatinine [Mass ratio] 28.9 mg/mg [facility] Laboratory - Hematology and Cell countson 08-02-2024 Immature granulocytes/100 WBC (Bld) 0.5 % 0.0-0.5 [facility] Leukocytes [#/volume] correc yaneth for nucleated erythrocytes in Blood by Automated counon 08-02-2024 WBC corrected for nucl RBC Auto (Bld) [#/Vol] Leukocytes [#/volume] corrected for nucleated erythrocytes in Blood by Automated coun 4.0-11.0 [facility] Lymphocytes Auto (Bld) [#/Vo l]on 08-02-2024 Lymphocytes (Bld) [#/Vol] Lymphocytes [#/volume] in Blood by Automated count 1.2-3.8 [facility] Lymphocytes/100 WBC Auto (Bl d)on 08-02-2024 Lymphocytes/100 WBC (Bld) Lymphocytes/100 leukocytes in Blood by Automated count 20.5-60.0 [facility] MCH Auto (RBC) [Entitic mass ]on 08-02-2024 MCH (RBC) [Entitic mass] MCH [Entitic mass] by Automated count 25.9-34.0 [facility] MCHC Auto (RBC) [Mass/Vol]on 08-02-2024 MCHC (RBC) [Mass/Vol] MCHC [Mass/volume] by Automated count 29.9-35.2 [facility] MCV Auto (RBC) [Entitic vol] on 08-02-2024 MCV (RBC) [Entitic vol] MCV [Entitic vol ume] by Automated count 80.0-94.0 [facility] Monocytes Auto (Bld) [#/Vol] on 08-02-2024 Monocytes (Bld) [#/Vol] Automated blood monocyte count High 0.3-0.8 [facility] Monocytes/100 WBC Auto (Bld) on 08-02-2024 Monocytes/100 WBC (Bld) Automated monocyte % High 1. 7-12.0 [facility] Neutrophils Auto (Bld) [#/Vo l]on 08-02-2024 Neutrophils (Bld) [#/Vol] Neutrophils [#/volume] in Blood by Automated count 1.4-6.5 [facility] Neutrophils/100 WBC Auto (Bl d)on 08-02-2024 Neutrophils/100 WBC (Bld) Automated neutrophil % 43.0-75.0 [facility] No Panel Informationon 08-02 Eosinophils # (Auto) 0.2 10 3/uL 0.0-0.7 [facility] Immature Granulocyte # (Auto) 0.03 10 3/uL 0.00-0.03 [facility] Platelet mean volume Auto (B ld) [Entitic vol]on 08-02-2024 Platelet mean volume (Bld) [Entitic vol] Platelet mean volume [Entitic volume] in Blood by Automated count 9.5-13.5 [facility] Platelets Auto (Bld) [#/Vol] on 08-02-2024 Platelets (Bld) [#/Vol] Platelets [#/vol ume] in Blood by Automated count 150-450 [facility] RBC Auto (Bld) [#/Vol]on RBC (Bld) [#/Vol] Erythrocytes [#/volume] in Blood by Automated count Low 4.70-6.10 [facility] Serum or plasma anion gap de terminationon 08-02-2024 Anion gap [Moles/Vol] Serum or plasma an ion gap determination [facility] Basophils Auto (Bld) [#/Vol] on 07-30-2024 Basophils (Bld) [#/Vol] Automated basoph il count 0.0-0.1 [facility] Basophils/100 WBC Auto (Bld) on 07-30-2024 Basophils/100 WBC (Bld) Automated basophil % 0. 2-2.0 [facility] Eosinophils/100 WBC Auto (Bl d)on 07-30-2024 Eosinophils/100 WBC (Bld) Automated eosinophil % 0.9-7.0 [facility] Erythrocyte distribution wid th Auto (RBC) [Ratio]on 07-30-2024 Erythrocyte distribution width (RBC) [Ratio] Erythrocyte distribution width [Ratio] by Automated count 11.0-15.0 [facility] Estimated glomerular filtrat ion rate (GFR) non- Americanon 07-30-2024 GFR/1.73 sq M.predicted among non-blacks MDRD (S/P/Bld) [Vol rate/Area] Estimated glomerular filtration rate (GFR) non- Low >=60 mL/min/1.73 m 2 [facility] Globulin Calc (S) [Mass/Vol] on 07-30-2024 Globulin (S) [Mass/Vol] Serum globulin measurement by calculation (mass/volume) [facility] Hematocrit Auto (Bld) [Volum e fraction]on 07-30-2024 Hematocrit (Bld) [Volume fraction] Hematocrit [Volume Fraction] of Blood by Automated count Low 42.0-54.0 [facility] Hemoglobin [Mass/volume] in Bloodon 07-30-2024 Hemoglobin (Bld) [Mass/Vol] Hemoglobin [Mass/volume] in Blood Low 14.0-18.0 [facility] Laboratory - Chemistry and C hemistry - challengeon 07-30-2024 Bilirubin Ql (U) Negative NEGATIVE [facility] Glucose (U) [Mass/Vol] 500 mg/dL Abnormal NEGATIVE [facility] Ketones Ql (U) Negative NEGATIVE [facility] pH (U) 5.5 [pH] 5.0-9.0 [facility] Specific gravity (U) [Rel density] <=1.005 Abnormal 1.005-1.025 [facility] Urobilinogen Qn (U) 0.2 {Fabiana'U}/dL 0.2-1.0 [facility] Albumin [Mass/Vol] 3.2 g/dL Low 3.4-5.0 [facility] ALP [Catalytic activity/Vol] 90 U/L 46-116 [facility] ALT [Catalytic activity/Vol] 27 U/L 16-63 [facility] AST [Catalytic activity/Vol] 22 U/L 15-37 [facility] Bilirubin [Mass/Vol] 0.4 mg/dL 0.2-1.0 [facility] Bilirubin.direct [Mass/Vol] 0.1 mg/dL 0.0-0.2 [facility] Calcium [Mass/Vol] 8.6 mg/dL 8.5-10.1 [facility] Chloride [Moles/Vol] 94 mmol/L Low 98-107 [facility] CO2 [Moles/Vol] 29.0 mmol/L 21.0-32.0 [facility] Creatinine [Mass/Vol] 3.35 mg/dL High 0.70-1.30 [facility] GFR/1.73 sq M.predicted MDRD (S/P/Bld) [Vol rate/Area] 23 mL/min/{1.73_m2} Low >=60 mL/min/1.73 m 2 [facility] Glucose [Mass/Vol] 222 mg/dL High 74-106 [facility] Lipase [Catalytic activity/Vol] 25.0 U/L 16.0-77.0 [facility] Potassium [Moles/Vol] 4.6 mmol/L 3.5-5.1 [facility] Protein [Mass/Vol] 7.5 g/dL 6.4-8.2 [facility] Sodium [Moles/Vol] 134 mmol/L Low 136-145 [facility] Urea nitrogen [Mass/Vol] 75.0 mg/dL High 7.0-18.0 [facility] Urea nitrogen/Creatinine [Mass ratio] 22.4 mg/mg [facility] Laboratory - Hematology and Cell countson 07-30-2024 Immature granulocytes/100 WBC (Bld) 0.5 % 0.0-0.5 [facility] Laboratory - Specimen inform ationon 07-30-2024 Appearance (U) CLEAR CLEAR [facility] Color (U) LT. YELLOW YELLOW [facility] Laboratory - Urinalysison Leukocyte esterase Test strip Ql (U) Negative NEGATIVE [facility] Nitrite Ql (U) Negative NEGATIVE [facility] Protein Ql (U) Negative NEG/TRACE [facility] Leukocytes [#/volume] correc yaneth for nucleated erythrocytes in Blood by Automated counon 07-30-2024 WBC corrected for nucl RBC Auto (Bld) [#/Vol] Leukocytes [#/volume] corrected for nucleated erythrocytes in Blood by Automated coun 4.0-11.0 [facility] Lymphocytes Auto (Bld) [#/Vo l]on 07-30-2024 Lymphocytes (Bld) [#/Vol] Lymphocytes [#/volume] in Blood by Automated count 1.2-3.8 [facility] Lymphocytes/100 WBC Auto (Bl d)on 07-30-2024 Lymphocytes/100 WBC (Bld) Lymphocytes/100 leukocytes in Blood by Automated count Low 20.5-60.0 [facility] MCH Auto (RBC) [Entitic mass ]on 07-30-2024 MCH (RBC) [Entitic mass] MCH [Entitic mass] by Automated count 25.9-34.0 [facility] MCHC Auto (RBC) [Mass/Vol]on 07-30-2024 MCHC (RBC) [Mass/Vol] MCHC [Mass/volume] by Automated count 29.9-35.2 [facility] MCV Auto (RBC) [Entitic vol] on 07-30-2024 MCV (RBC) [Entitic vol] MCV [Entitic vol ume] by Automated count 80.0-94.0 [facility] Monocytes Auto (Bld) [#/Vol] on 07-30-2024 Monocytes (Bld) [#/Vol] Automated blood monocyte count 0.3-0.8 [facility] Monocytes/100 WBC Auto (Bld) on 07-30-2024 Monocytes/100 WBC (Bld) Automated monocyte % 1. 7-12.0 [facility] Neutrophils Auto (Bld) [#/Vo l]on 07-30-2024 Neutrophils (Bld) [#/Vol] Neutrophils [#/volume] in Blood by Automated count 1.4-6.5 [facility] Neutrophils/100 WBC Auto (Bl d)on 07-30-2024 Neutrophils/100 WBC (Bld) Automated neutrophil % 43.0-75.0 [facility] No Panel Informationon 07-30 Urine Microscopic Review NO [facility] Urine Occult Blood Negative NEGATIVE [facility] Eosinophils # (Auto) 0.1 10 3/uL 0.0-0.7 [facility] Immature Granulocyte # (Auto) 0.04 10 3/uL High 0.00-0.03 [facility] Platelet mean volume Auto (B ld) [Entitic vol]on 07-30-2024 Platelet mean volume (Bld) [Entitic vol] Platelet mean volume [Entitic volume] in Blood by Automated count 9.5-13.5 [facility] Platelets Auto (Bld) [#/Vol] on 07-30-2024 Platelets (Bld) [#/Vol] Platelets [#/vol ume] in Blood by Automated count 150-450 [facility] RBC Auto (Bld) [#/Vol]on RBC (Bld) [#/Vol] Erythrocytes [#/volume] in Blood by Automated count Low 4.70-6.10 [facility] Serum or plasma albumin/glob ulin mass ratioon 07-30-2024 Albumin/Globulin [Mass ratio] Serum or plasma albumin/globulin mass ratio [facility] Serum or plasma anion gap de terminationon 07-30-2024 Anion gap [Moles/Vol] Serum or plasma an ion gap determination [facility] .eGFRon 07-29-2024 Estimated GFR 21 mL/min/1.73m? Low >=60 [facility] Comment on above: Result Comment: [place] [...] years Performed By: #### E GFR #### [address] [address] Basic Metabolic Profileon Anion gap [Moles/Vol] 11 mmol/L Normal 4-12 [facility] Comment on above: Performed By: #### C [id number] ####[address] [address] Calcium [Mass/Vol] 8.3 mg/dL Low 8.5-10.3 [facility] Comment on above: Performed By: #### C [id number] ####[address] [address] Chloride [Moles/Vol] 94 mmol/L Low 98-110 [facility] Comment on above: Performed By: #### C [id number] ####[address] [address] CO2 [Moles/Vol] 28 mmol/L Normal 22-32 [facility] Comment on above: Performed By: #### C [id number] ####[address] [address] Creatinine [Mass/Vol] 3.21 mg/dL High 0.61-1.24 [facility] Comment on above: Performed By: #### C [id number] ####[address] [address] Glucose [Mass/Vol] 90 mg/dL Normal 70-99 [facility] Comment on above: Performed By: #### C [id number] ####[address] [address] Potassium [Moles/Vol] 4.1 mmol/L Normal 3.4-4.8 [facility] Comment on above: Performed By: #### C [id number] ####[address] [address] Sodium [Moles/Vol] 133 mmol/L Normal 133-142 [facility] Comment on above: Performed By: #### C [id number] ####[address] [address] Urea nitrogen [Mass/Vol] 72 mg/dL High 8-26 [facility] Comment on above: Performed By: #### C [id number] ####[address] [address] Urea nitrogen/Creatinine [Mass ratio] 22.4 mg/mg High 10.0-20.0 [facility] Comment on above: Performed By: #### C [id number] ####[address] [address] CBCon 07-29-2024 Erythrocyte distribution width (RBC) [Ratio] 13.7 % Normal 11.6-14.8 [facility] Comment on above: Performed By: #### . AMI Initial #### [address] [address] Hematocrit (Bld) [Volume fraction] 30.2 % Low 41.0-53.0 [facility] Comment on above: Performed By: #### . AMI Initial #### [address] [address] Hemoglobin (Bld) [Mass/Vol] 10.4 g/dL Low 13.5-17.5 [facility] Comment on above: Performed By: #### . AMI Initial #### [address] [address] MCH (RBC) [Entitic mass] 31.5 pg Normal 27.0-35.0 [facility] Comment on above: Performed By: #### . AMI Initial #### [address] [address] MCHC 34.5 % Normal 31.0-37.0 [facility] Comment on above: Performed By: #### . AMI Initial #### [address] [address] MCV (RBC) [Entitic vol] 91.4 fL Normal 80.0-100.0 [facility] Comment on above: Performed By: #### . AMI Initial #### [address] [address] Platelet 245 x10*3/mcL Normal 150-450 [facility] Comment on above: Performed By: #### . AMI Initial #### [address] [address] Platelet mean volume (Bld) [Entitic vol] 9.0 fL Normal 6.7-10.6 [facility] Comment on above: Performed By: #### . AMI Initial #### [address] [address] RBC 3.31 x10*6/mcL Low 4.30-5.80 [facility] Comment on above: Performed By: #### . AMI Initial #### [address] [address] WBC 8.1 x10*3/mcL Normal 4.5-11.0 [facility] Comment on above: Performed By: #### . AMI Initial #### [address] [address] Inpatient Clinical Summary 07-29-2024 Inpatient Clinical Summary [address] [address] [phone] [address] [phone] Clinical Summary Person Information Name: Piotr Kerr Age: 63 Years : 1960 Sex: Male PCP: Jorge Pritchett DO Marital Status: Phone: PCP: Race: White Ethnicity: Not or Language: Albanian Visit Id: Visit Reason: Renal Failure Speciality: Acuity: Enc Type: Inpatient Med Service: Medicine-General Arrival: 07/23/2024 09:47:21 Discharge: Dispo Type: Address: [address] [place] [phone] Preferred Communication Mode: Preferred Language: Albanian Discharge [...] Shoe/Cast Shoe 07/27/24 13:25:00 EST, 3 months, [id number], PT RECEIVED A SMALL SHOE, PLEASE DISPENSE [...] fully awake, 07/29/24 14:46:00 EST Insulin Safety [place] 07/23/24 11:04:00 EST, PRN, 1 each insulin [...] range between ( 27.2 and 40.8 ) [place] Auto: 11.8 % -- Norm (more content not included)... Normal [facility] Magnesiumon 07-29-2024 Magnesium [Mass/Vol] 2.0 mg/dL Normal 1.7-2.4 [facility] Comment on above: Performed By: #### . AMI 6 Hr #### [facility] [address] [place] [address] Nephrology Progress Noteon 0 07-29-2024 Nephrology Progress [...] Lymph Auto 20.4 % Low 07/23/24 10:51:00 [place] Auto 11.8 % 07/23/24 10:51:00 Eos Auto 0.9 % 07/23/24 10:51:00 Basophil Auto 0.7 % 07/23/24 10:51:00 Neutro Absolute 5 x10 07/23/24 10:51:00 Lymph Absolute 1.5 x10 07/23/24 10:51:00 [place] Absolute 0.9 x10 07/23/24 10:51:00 Eos Absolute [...] up in 1-2 weeks at our outpatient [place] [facility] 2. HTN (hypertension) Chronic baseline history [...] continue on DC Electronically signed by [employer] CLINICAL SOCIOLOGIST[employer]COURT RECORDER, Lluvia Alvarez 07/30/24 14:17 EST As the attending, patient's case was reviewed and discussed with Vaishali (more content not included)... Normal [facility] Neurology Progress Noteon Neurology Progress Note [...] PRN heparin, 5000 units= 1 mL, Subcutaneous, [id number] Times hydrocodone-acetamino phen 5 mg-325 mg oral [...] mg= 1 mL, IV Push, q2min, PRN [place] 10 mg-325 mg oral tablet, 1 tabs, [...] Werner Sunshine MD 07/29/24 14:10 EST Normal [facility] POC Glucose Randomon 025 Glucose [Mass/Vol] 83 mg/dL Normal 70-99 [facility] Comment on above: Performed By: #### M G #### [place] [id number] Glucose [Mass/Vol] 104 mg/dL High 70-99 [facility] Comment on above: Performed By: #### . AMI Initial #### [address] [address] Phosphoruson 07-29-2024 Phosphate [Mass/Vol] 5.0 mg/dL High 2.5-4.6 [facility] Comment on above: Performed By: #### R ENAL #### [address] [address] .eGFRon 07-28-2024 Estimated GFR 32 mL/min/1.73m? Low >=60 [facility] Comment on above: Result Comment: [place] = years Performed By: #### E GFR ####[address] [address] CBCon 07-28-2024 Erythrocyte distribution width (RBC) [Ratio] 13.7 % Normal 11.6-14.8 [facility] Comment on above: Performed By: #### . AMI 6 Hr #### [place] [id number] Hematocrit (Bld) [Volume fraction] 31.0 % Low 41.0-53.0 [facility] Comment on above: Performed By: #### . AMI 6 Hr #### [place] [id number] Hemoglobin (Bld) [Mass/Vol] 10.5 g/dL Low 13.5-17.5 [facility] Comment on above: Performed By: #### . AMI 6 Hr #### [place] [id number] MCH (RBC) [Entitic mass] 30.9 pg Normal 27.0-35.0 [facility] Comment on above: Performed By: #### . AMI 6 Hr #### [place] [id number] MCHC 33.8 % Normal 31.0-37.0 [facility] Comment on above: Performed By: #### . AMI 6 Hr #### [place] [id number] MCV (RBC) [Entitic vol] 91.4 fL Normal 80.0-100.0 [facility] Comment on above: Performed By: #### . AMI 6 Hr #### [place] [id number] Platelet 245 x10*3/mcL Normal 150-450 [facility] Comment on above: Performed By: #### . AMI 6 Hr #### [facility] [address] [place] [address] Platelet mean volume (Bld) [Entitic vol] 9.0 fL Normal 6.7-10.6 [facility] Comment on above: Performed By: #### . AMI 6 Hr #### [facility] [address] [place] [address] RBC 3.39 x10*6/mcL Low 4.30-5.80 [facility] Comment on above: Performed By: #### . AMI 6 Hr #### [place] [address] [place] [address] WBC 8.2 x10*3/mcL Normal 4.5-11.0 [facility] Comment on above: Performed By: #### . AMI 6 Hr #### [place] [address] [place] [address] CT Brain w/o Contraston 03-0 CT Brain [...] loss. Stable appearance of likely remote small all around gear machine operator infarct involving the right huang. No mass lesion or mass effect. No hydrocephalus. IMPRESSION: No acute large vascular territory infarct or acute intracranial hemorrhage. If there is clinical concern for acute ischemia recommend MRI brain for further evaluation. Radiation Dose Estimate: CTDI(mGy):0.004848 / / / kVp:120.873313 / mAs:0.241683 / / / DLP(mGy-cm):5.881024D garrison Part: Head CTDI(mGy):46.838044 / / / kVp:120.664251 / mAs:186.174695 / / / DLP(mGy-cm):789.82050 3Body Part: Head Final Dictated by: Zee Guillen DO Dictated DT/TM: 07.28.2024 7:57 am Signed by: Zee Guillen DO Signed (Electronic Signature): 07.28.2024 7:58 am (If Report Is Signed, Electronically Signed in Other Vendor System) Normal [facility] Magnesiumon 07-28-2024 Magnesium [Mass/Vol] 1.8 mg/dL Normal 1.7-2.4 [facility] Comment on above: Performed By: #### M G #### [place] [id number] Nephrology Progress Noteon 0 07-28-2024 Nephrology Progress [...] Lymph Auto 20.4 % Low 07/23/24 10:51:00 [place] Auto 11.8 % 07/23/24 10:51:00 Eos Auto 0.9 % 07/23/24 10:51:00 Basophil Auto 0.7 % 07/23/24 10:51:00 Neutro Absolute 5 x10 07/23/24 10:51:00 Lymph Absolute 1.5 x10 07/23/24 10:51:00 [place] Absolute 0.9 x10 07/23/24 10:51:00 Eos Absolute [...] PRN heparin, 5000 units= 1 mL, Subcutaneous, [id number] Times hydrocodone-acetamino phen 5 mg-325 mg oral [...] mg= 1 mL, IV Push, q2min, PRN [place] 10 mg-325 mg oral tablet, 1 tabs, [...] -OK t (more content not included)... Normal [facility] Neurology Progress Noteon Neurology Progress Note [...] PRN heparin, 5000 units= 1 mL, Subcutaneous, [id number] Times hydrocodone-acetamino phen 5 mg-325 mg oral [...] mg= 1 mL, IV Push, q2min, PRN [place] 10 mg-325 mg oral tablet, 1 tabs, [...] Werner Sunshine MD 07/28/24 19:04 EST Normal [facility] POC Glucose Randomon 025 Glucose [Mass/Vol] 173 mg/dL High 70-99 [facility] Comment on above: Performed By: #### C [id number] ####[address] [address] Glucose [Mass/Vol] 113 mg/dL High 70-99 [facility] Comment on above: Performed By: #### R ENAL #### [address] [address] Glucose [Mass/Vol] 128 mg/dL High 70-99 [facility] Comment on above: Performed By: #### C [id number] #### [address] [address] Glucose [Mass/Vol] 133 mg/dL High 70-99 [facility] Comment on above: Performed By: #### . AMI Initial #### [address] [address] Renal Panelon 07-28-2024 Albumin [Mass/Vol] 3.3 g/dL Normal 3.2-4.9 [facility] Comment on above: Performed By: #### R ENAL #### [address] [address] Anion gap [Moles/Vol] 10 mmol/L Normal 4-12 [facility] Comment on above: Performed By: #### R ENAL #### [facility] [address] [place] [address] [place] [address] Calcium [Mass/Vol] 8.1 mg/dL Low 8.5-10.3 [facility] Comment on above: Performed By: #### R ENAL #### [address] [address] Chloride [Moles/Vol] 97 mmol/L Low 98-110 [facility] Comment on above: Performed By: #### R ENAL #### [address] [address] CO2 [Moles/Vol] 26 mmol/L Normal 22-32 [facility] Comment on above: Performed By: #### R ENAL #### [address] [address] Creatinine [Mass/Vol] 2.26 mg/dL High 0.61-1.24 [facility] Comment on above: Performed By: #### R ENAL #### [address] [address] Glucose [Mass/Vol] 125 mg/dL High 70-99 [facility] Comment on above: Performed By: #### R ENAL #### [address] [address] Phosphate [Mass/Vol] 4.3 mg/dL Normal 2.5-4.6 [facility] Comment on above: Performed By: #### R ENAL #### [address] [address] Potassium [Moles/Vol] 4.0 mmol/L Normal 3.4-4.8 [facility] Comment on above: Performed By: #### R ENAL #### [address] [address] Sodium [Moles/Vol] 133 mmol/L Normal 133-142 [facility] Comment on above: Performed By: #### R ENAL #### [address] [address] Urea nitrogen [Mass/Vol] 62 mg/dL High 8-26 [facility] Comment on above: Performed By: #### R ENAL #### [address] [address] Urea nitrogen/Creatinine [Mass ratio] 27.4 mg/mg High 10.0-20.0 [facility] Comment on above: Performed By: #### R ENAL #### [address] [address] .AMI 2 Hron 07-27-2024 2 Hour Myoglobin 98.6 ng/mL Normal 17.4-105.7 [facility] Comment on above: Performed By: #### . AMI 2 Hour ####[address] [address] 2 Hour Troponin <0.03 Normal 0.00-0.03 [facility] Comment on above: Result Comment: An i ncreased Troponin-I value, in the absence of myocardial ischemia, may indicate other etiologies of cardiac damage. 99th Percentile Cutoff for Negative/Positive: Negative <= 0.03 Positive >= 0.04 Performed By: #### . AMI 2 Hour ####[address] [address] .AMI 6 Hron 07-27-2024 6 Hour Myoglobin 87.9 ng/mL Normal 17.4-105.7 [facility] [facility] Comment on above: Performed By: #### . AMI 6 Hr #### [address] [address] 6 Hour Troponin <0.03 Normal 0.00-0.03 [facility] Comment on above: Result Comment: An i ncreased Troponin-I value, in the absence of myocardial ischemia, may indicate other etiologies of cardiac damage. 99th Percentile Cutoff for Negative/Positive: Negative <= 0.03 Positive >= 0.04 Performed By: #### . AMI 6 Hr #### [id number] [place] [address] .AMI Initon 07-27-2024 Initial Myoglobin 97.8 ng/mL Normal 17.4-105.7 [facility] Comment on above: Performed By: #### . AMI Initial #### [address] [address] Initial Troponin <0.03 Normal 0.00-0.03 [facility] Comment on above: Result Comment: An i ncreased Troponin-I value, in the absence of myocardial ischemia, may indicate other etiologies of cardiac damage. 99th Percentile Cutoff for Negative/Positive: Negative <= 0.03 Positive >= 0.04 Performed By: #### . AMI Initial #### [address] [address] .eGFRon 07-27-2024 Estimated GFR 28 mL/min/1.73m? Low >=60 [facility] Comment on above: Result Comment: [place] [...] years Performed By: #### R ENAL #### [address] [address] CBCon 07-27-2024 Erythrocyte distribution width (RBC) [Ratio] 13.5 % Normal 11.6-14.8 [facility] Comment on above: Performed By: #### R ENAL #### [address] [address] Hematocrit (Bld) [Volume fraction] 31.0 % Low 41.0-53.0 [facility] Comment on above: Performed By: #### R ENAL #### [address] [address] Hemoglobin (Bld) [Mass/Vol] 10.7 g/dL Low 13.5-17.5 [facility] Comment on above: Performed By: #### R ENAL #### [address] [address] MCH (RBC) [Entitic mass] 31.4 pg Normal 27.0-35.0 [facility] Comment on above: Performed By: #### R ENAL #### [address] [address] MCHC 34.7 % Normal 31.0-37.0 [facility] Comment on above: Performed By: #### R ENAL #### [address] [address] MCV (RBC) [Entitic vol] 90.6 fL Normal 80.0-100.0 [facility] Comment on above: Performed By: #### R ENAL #### [address] [address] Platelet 244 x10*3/mcL Normal 150-450 [facility] Comment on above: Performed By: #### R ENAL #### [address] [address] Platelet mean volume (Bld) [Entitic vol] 9.6 fL Normal 6.7-10.6 [facility] Comment on above: Performed By: #### R ENAL #### [address] [address] RBC 3.42 x10*6/mcL Low 4.30-5.80 [facility] Comment on above: Performed By: #### R ENAL #### [facility] [address] [place] [address] WBC 9.1 x10*3/mcL Normal 4.5-11.0 [facility] Comment on above: Performed By: #### R ENAL #### [facility] [address] [place] [address] Magnesiumon 07-27-2024 Magnesium [Mass/Vol] 2.0 mg/dL Normal 1.7-2.4 [facility] Comment on above: Performed By: #### M G #### [address] [address] Nephrology Progress Noteon 0 07-27-2024 Nephrology Progress [...] Lymph Auto 20.4 % Low 07/23/24 10:51:00 Collier Auto 11.8 % 07/23/24 10:51:00 Eos Auto 0.9 % 07/23/24 10:51:00 Basophil Auto 0.7 % 07/23/24 10:51:00 Neutro Absolute 5 x10 07/23/24 10:51:00 Lymph Absolute 1.5 x10 07/23/24 10:51:00 Collier Absolute 0.9 x10 07/23/24 10:51:00 Eos Absolute [...] PRN heparin, 5000 units= 1 mL, Subcutaneous, e9nd-Anzlsyie Times hydrocodone-acetamino phen 5 mg-325 mg oral [...] Jardiance 10mg (more content not included)... Normal [facility] POC Glucose Randomon 025 Glucose [Mass/Vol] 158 mg/dL High 70-99 [facility] Comment on above: Performed By: #### C [id number] #### [address] [address] Glucose [Mass/Vol] 161 mg/dL High 70-99 [facility] Comment on above: Performed By: #### . AMI Initial #### [address] [address] Glucose [Mass/Vol] 198 mg/dL High 70-99 [facility] Comment on above: Performed By: #### C [id number] #### [address] [address] Glucose [Mass/Vol] 124 mg/dL High 70-99 [facility] Comment on above: Performed By: #### C [id number] #### [address] [address] Renal Panelon 07-27-2024 Albumin [Mass/Vol] 3.6 g/dL Normal 3.2-4.9 [facility] Comment on above: Performed By: #### R ENAL #### [address] [address] Anion gap [Moles/Vol] 14 mmol/L High 4-12 [facility] Comment on above: Performed By: #### R ENAL #### [address] [address] Calcium [Mass/Vol] 8.3 mg/dL Low 8.5-10.3 [facility] Comment on above: Performed By: #### R ENAL #### [address] [address] Chloride [Moles/Vol] 98 mmol/L Normal 98-110 [facility] Comment on above: Performed By: #### R ENAL #### [address] [address] CO2 [Moles/Vol] 25 mmol/L Normal 22-32 [facility] Comment on above: Performed By: #### R ENAL #### [address] [address] Creatinine [Mass/Vol] 2.49 mg/dL High 0.61-1.24 [facility] Comment on above: Performed By: #### R ENAL #### [address] [address] Glucose [Mass/Vol] 114 mg/dL High 70-99 [facility] Comment on above: Performed By: #### R ENAL #### [address] [address] Phosphate [Mass/Vol] 4.5 mg/dL Normal 2.5-4.6 [facility] Comment on above: Performed By: #### R ENAL #### [address] [place] [address] Potassium [Moles/Vol] 3.7 mmol/L Normal 3.4-4.8 [facility] Comment on above: Performed By: #### R ENAL #### [address] [place] [address] Sodium [Moles/Vol] 137 mmol/L Normal 133-142 [facility] Comment on above: Performed By: #### R ENAL #### [address] [address] Urea nitrogen [Mass/Vol] 65 mg/dL High 8-26 [facility] Comment on above: Performed By: #### R ENAL #### [address] [address] Urea nitrogen/Creatinine [Mass ratio] 26.1 mg/mg High 10.0-20.0 [facility] Comment on above: Performed By: #### R ENAL #### [address] [address] .eGFRon 07-26-2024 Estimated GFR 28 mL/min/1.73m? Low >=60 [facility] Comment on above: Result Comment: [place] [...] Performed By: #### . AMI Initial #### [address] [address] CBCon 07-26-2024 Erythrocyte distribution width (RBC) [Ratio] 13.5 % Normal 11.6-14.8 [facility] Comment on above: Performed By: #### . AMI 6 Hr #### [address] [address] Hematocrit (Bld) [Volume fraction] 32.5 % Low 41.0-53.0 [facility] Comment on above: Performed By: #### . AMI 6 Hr #### [id number] Hemoglobin (Bld) [Mass/Vol] 11.0 g/dL Low 13.5-17.5 [facility] Comment on above: Performed By: #### . AMI 6 Hr #### [id number] MCH (RBC) [Entitic mass] 30.7 pg Normal 27.0-35.0 [facility] Comment on above: Performed By: #### . AMI 6 Hr #### [address] MCHC 33.9 % Normal 31.0-37.0 [facility] Comment on above: Performed By: #### . AMI 6 Hr #### [id number] MCV (RBC) [Entitic vol] 90.5 fL Normal 80.0-100.0 [facility] Comment on above: Performed By: #### . AMI 6 Hr #### [id number] Platelet 269 x10*3/mcL Normal 150-450 [facility] Comment on above: Performed By: #### . AMI 6 Hr #### [id number] Platelet mean volume (Bld) [Entitic vol] 9.7 fL Normal 6.7-10.6 [facility] Comment on above: Performed By: #### . AMI 6 Hr #### [address] RBC 3.59 x10*6/mcL Low 4.30-5.80 [facility] Comment on above: Performed By: #### . AMI 6 Hr #### [id number] WBC 8.2 x10*3/mcL Normal 4.5-11.0 [facility] Comment on above: Performed By: #### . AMI 6 Hr #### [address] [address] Magnesiumon 07-26-2024 Magnesium [Mass/Vol] 2.0 mg/dL Normal 1.7-2.4 [facility] Comment on above: Performed By: #### M G #### [address] [address] Nephrology Progress Noteon 0 07-26-2024 Nephrology Progress [...] Lymph Auto 20.4 % Low 07/23/24 10:51:00 Collier Auto 11.8 % 07/23/24 10:51:00 Eos Auto 0.9 % 07/23/24 10:51:00 Basophil Auto 0.7 % 07/23/24 10:51:00 Neutro Absolute 5 x10 07/23/24 10:51:00 Lymph Absolute 1.5 x10 07/23/24 10:51:00 [place]lier Absolute 0.9 x10 07/23/24 10:51:00 Eos Absolute [...] PRN heparin, 5000 units= 1 mL, Subcutaneous, c5kb-Gmnbraom Times hydrocodone-acetamino phen 5 mg-325 mg oral [...] to resume Losartan at 50mg dosage from [facility] (more content not included)... Normal [facility] POC Glucose Randomon 025 Glucose [Mass/Vol] 249 mg/dL High 70-99 [facility] Comment on above: Performed By: #### C [id number] #### [facility] [address] [place] [address] Glucose [Mass/Vol] 230 mg/dL High 70-99 [facility] Comment on above: Performed By: #### C [id number] ####[facility] [place] [address] Glucose [Mass/Vol] 320 mg/dL High 70-99 [facility] Comment on above: Performed By: #### E GFR #### [facility] [address] [place] [address] Glucose [Mass/Vol] 215 mg/dL High 70-99 [facility] Comment on above: Performed By: #### C [id number] #### [address] [address] Progress Note-Nurseon 2024 Progress Note-Nurse Wound care reassessment completed. Right hallux was debrided at bedside by dry dip worker yesterday. Orders in place to start Silvadene [...] by Mei Villaseñor 07/26/24 09:14 EST Normal [facility] Renal Panelon 07-26-2024 Albumin [Mass/Vol] 3.6 g/dL Normal 3.2-4.9 [facility] Comment on above: Performed By: #### R ENAL ####[address] [address] Anion gap [Moles/Vol] 14 mmol/L High 4-12 [facility] Comment on above: Performed By: #### R ENAL ####[address] [address] Calcium [Mass/Vol] 8.3 mg/dL Low 8.5-10.3 [facility] Comment on above: Performed By: #### R ENAL ####[address] [address] Chloride [Moles/Vol] 95 mmol/L Low 98-110 [facility] Comment on above: Performed By: #### R ENAL ####[address] [address] CO2 [Moles/Vol] 25 mmol/L Normal 22-32 [facility] Comment on above: Performed By: #### R ENAL ####[address] [address] Creatinine [Mass/Vol] 2.47 mg/dL High 0.61-1.24 [facility] Comment on above: Performed By: #### R ENAL ####[address] [address] Glucose [Mass/Vol] 210 mg/dL High 70-99 [facility] Comment on above: Performed By: #### R ENAL ####[address] [address] Phosphate [Mass/Vol] 4.3 mg/dL Normal 2.5-4.6 [facility] Comment on above: Performed By: #### R ENAL ####[address] [address] Potassium [Moles/Vol] 3.9 mmol/L Normal 3.4-4.8 [facility] Comment on above: Performed By: #### R ENAL ####[address] [address] Sodium [Moles/Vol] 134 mmol/L Normal 133-142 [facility] Comment on above: Performed By: #### R ENAL ####[address] [address] Urea nitrogen [Mass/Vol] 60 mg/dL High 8-26 [facility] Comment on above: Performed By: #### R ENAL ####[address] [address] Urea nitrogen/Creatinine [Mass ratio] 24.3 mg/mg High 10.0-20.0 [facility] Comment on above: Performed By: #### R ENAL ####[address] [address] .eGFRon 07-25-2024 Estimated GFR 29 mL/min/1.73m? Low >=60 [facility] Comment on above: Order Comment: Order [...] = years Performed By: #### E GFR ####[address] [address] CBCon 07-25-2024 Erythrocyte distribution width (RBC) [Ratio] 13.6 % Normal 11.6-14.8 [facility] Comment on above: Performed By: #### . AMI 6 Hr #### [address] [address] Hematocrit (Bld) [Volume fraction] 31.0 % Low 41.0-53.0 [facility] Comment on above: Performed By: #### . AMI 6 Hr #### [address] [address] Hemoglobin (Bld) [Mass/Vol] 10.7 g/dL Low 13.5-17.5 [facility] Comment on above: Performed By: #### . AMI 6 Hr #### [address] [address] MCH (RBC) [Entitic mass] 31.4 pg Normal 27.0-35.0 [facility] Comment on above: Performed By: #### . AMI 6 Hr #### [address] [address] MCHC 34.6 % Normal 31.0-37.0 [facility] Comment on above: Performed By: #### . AMI 6 Hr #### [address] [address] MCV (RBC) [Entitic vol] 90.9 fL Normal 80.0-100.0 [facility] Comment on above: Performed By: #### . AMI 6 Hr #### [address] [address] Platelet 252 x10*3/mcL Normal 150-450 [facility] Comment on above: Performed By: #### . AMI 6 Hr #### [address] [address] Platelet mean volume (Bld) [Entitic vol] 9.6 fL Normal 6.7-10.6 [facility] Comment on above: Performed By: #### . AMI 6 Hr #### [address] [address] RBC 3.41 x10*6/mcL Low 4.30-5.80 [facility] Comment on above: Performed By: #### . AMI 6 Hr #### [address] [address] WBC 8.0 x10*3/mcL Normal 4.5-11.0 [facility] Comment on above: Performed By: #### . AMI 6 Hr #### [address] [address] Hgb A1con 07-25-2024 Glucose [Mass/Vol] 203 mg/dL High 68-114 [facility] Comment on above: Result Comment: Math ematical Calc approx. The mean gluc equivalency of A1c Performed By: #### E GFR #### [address] [address] Hgb A1c 8.7 % A1c High 4.0-5.6 [facility] Comment on above: Result Comment: Refe rence Range: 4.0 - 5.6 % Normal 5.7 - 6.4 % Pre-Diabetes > 6.5 % Diabetes Performed By: #### E GFR #### [address] [address] Magnesiumon 07-25-2024 Magnesium [Mass/Vol] 1.7 mg/dL Normal 1.7-2.4 [facility] Comment on above: Performed By: #### M G #### [address] [place] [address] Nephrology Progress Noteon 0 07-25-2024 Nephrology Progress [...] Lymph Auto 20.4 % Low 07/23/24 10:51:00 Collier Auto 11.8 % 07/23/24 10:51:00 Eos Auto 0.9 % 07/23/24 10:51:00 Basophil Auto 0.7 % 07/23/24 10:51:00 Neutro Absolute 5 x10 07/23/24 10:51:00 Lymph Absolute 1.5 x10 07/23/24 10:51:00 [place]lier Absolute 0.9 x10 07/23/24 10:51:00 Eos Absolute [...] PRN heparin, 5000 units= 1 mL, Subcutaneous, [id number]-Xjclduuq Times hydrocodone-acetamino phen 5 mg-325 mg oral [...] and spironolactone (more content not included)... Normal [facility] POC Glucose Randomon 07-25- 025 Glucose [Mass/Vol] 229 mg/dL High 70-99 [facility] Comment on above: Performed By: #### C [id number] #### [address] [address] Glucose [Mass/Vol] 153 mg/dL High 70-99 [facility] Comment on above: Performed By: #### . AMI 6 Hr #### [address] [address] Glucose [Mass/Vol] 118 mg/dL High 70-99 [facility] Comment on above: Performed By: #### C [id number] #### [address] [address] Glucose [Mass/Vol] 152 mg/dL High 70-99 [facility] Comment on above: Performed By: #### M G #### [address] [address] Glucose [Mass/Vol] 143 mg/dL High 70-99 [facility] Comment on above: Performed By: #### M G #### [address] [address] Progress Note-Nurseon 2024 Progress Note-Nurse Wound care [...] by Bell Espinoza 07/25/24 12:41 EST Normal [facility] Renal Panelon 07-25-2024 Albumin [Mass/Vol] 3.6 g/dL Normal 3.2-4.9 [facility] Comment on above: Performed By: #### R ENAL #### [address] [place] [address] Anion gap [Moles/Vol] 13 mmol/L High 4-12 [facility] Comment on above: Performed By: #### R ENAL #### [address] [place] [address] Calcium [Mass/Vol] 8.0 mg/dL Low 8.5-10.3 [facility] Comment on above: Performed By: #### R ENAL #### [address] [place] [address] Chloride [Moles/Vol] 99 mmol/L Normal 98-110 [facility] Comment on above: Performed By: #### R ENAL #### [address] [place] [address] CO2 [Moles/Vol] 25 mmol/L Normal 22-32 [facility] Comment on above: Performed By: #### R ENAL #### [address] [place] [address] Creatinine [Mass/Vol] 2.42 mg/dL High 0.61-1.24 [facility] Comment on above: Performed By: #### R ENAL #### [address] [place] [address] Glucose [Mass/Vol] 162 mg/dL High 70-99 [facility] Comment on above: Performed By: #### R ENAL #### [address] [place] [address] Phosphate [Mass/Vol] 4.1 mg/dL Normal 2.5-4.6 [facility] Comment on above: Performed By: #### R ENAL #### [address] [place] [address] Potassium [Moles/Vol] 3.7 mmol/L Normal 3.4-4.8 [facility] Comment on above: Performed By: #### R ENAL #### [address] [address] Sodium [Moles/Vol] 137 mmol/L Normal 133-142 [facility] Comment on above: Performed By: #### R ENAL #### [address] [address] Urea nitrogen [Mass/Vol] 73 mg/dL High 8-26 [facility] Comment on above: Performed By: #### R ENAL #### [address] [address] Urea nitrogen/Creatinine [Mass ratio] 30.2 mg/mg High 10.0-20.0 [facility] Comment on above: Performed By: #### R ENAL #### [address] [address] .eGFRon 07-24-2024 Estimated GFR 22 mL/min/1.73m? Low >=60 [facility] Comment on above: Order Comment: Order [...] years Performed By: #### E GFR #### [address] [address] CBCon 07-24-2024 Erythrocyte distribution width (RBC) [Ratio] 13.3 % Normal 11.6-14.8 [facility] Comment on above: Performed By: #### E GFR #### [id number] Hematocrit (Bld) [Volume fraction] 32.1 % Low 41.0-53.0 [facility] Comment on above: Performed By: #### E GFR #### [id number] Hemoglobin (Bld) [Mass/Vol] 10.7 g/dL Low 13.5-17.5 [facility] Comment on above: Performed By: #### E GFR #### [address] [address] MCH (RBC) [Entitic mass] 30.7 pg Normal 27.0-35.0 [facility] Comment on above: Performed By: #### E GFR #### [id number] MCHC 33.5 % Normal 31.0-37.0 [facility] Comment on above: Performed By: #### E GFR #### [id number] MCV (RBC) [Entitic vol] 91.9 fL Normal 80.0-100.0 [facility] Comment on above: Performed By: #### E GFR #### [address] [address] Platelet 251 x10*3/mcL Normal 150-450 [facility] Comment on above: Performed By: #### E GFR #### [id number] Platelet mean volume (Bld) [Entitic vol] 9.7 fL Normal 6.7-10.6 [facility] Comment on above: Performed By: #### E GFR #### [address] [address] RBC 3.49 x10*6/mcL Low 4.30-5.80 [facility] Comment on above: Performed By: #### E GFR #### [address] [address] WBC 7.5 x10*3/mcL Normal 4.5-11.0 [facility] Comment on above: Performed By: #### E GFR #### [address] [id number] Ionized Calciumon 07-24-2024 Calcium Ionized 1.02 mmol/L Low 1.12-1.32 [facility] Comment on above: Performed By: #### . AMI 6 Hr #### [place] [address] Magnesiumon 07-24-2024 Magnesium [Mass/Vol] 2.2 mg/dL Normal 1.7-2.4 [facility] Comment on above: Performed By: #### M G #### [place] [id number] Nephrology Progress Noteon 0 07-24-2024 Nephrology Progress [...] Lymph Auto 20.4 % Low 07/23/24 10:51:00 Collier Auto 11.8 % 07/23/24 10:51:00 Eos Auto 0.9 % 07/23/24 10:51:00 Basophil Auto 0.7 % 07/23/24 10:51:00 Neutro Absolute 5 x10 07/23/24 10:51:00 Lymph Absolute 1.5 x10 07/23/24 10:51:00 [place]lier Absolute 0.9 x10 07/23/24 10:51:00 Eos Absolute [...] PRN heparin, 5000 units= 1 mL, Subcutaneous, k4nr-Ohjibovg Times hydrocodone-acetamino phen 5 mg-325 mg oral [...] level greater (more content not included)... Normal [facility] POC Glucose Randomon 025 Glucose [Mass/Vol] 255 mg/dL High 70-99 [facility] Comment on above: Performed By: #### . AMI 6 Hr #### [address] [address] Glucose [Mass/Vol] 190 mg/dL High 70-99 [facility] Comment on above: Performed By: #### E GFR #### [address] [address] Glucose [Mass/Vol] 276 mg/dL High 70-99 [facility] Comment on above: Performed By: #### E GFR #### [address] [address] Phosphoruson 07-24-2024 Phosphate [Mass/Vol] 4.2 mg/dL Normal 2.5-4.6 [facility] Comment on above: Performed By: #### R ENAL #### [address] [address] Renal Panelon 07-24-2024 Albumin [Mass/Vol] 3.5 g/dL Normal 3.2-4.9 [facility] Comment on above: Performed By: #### C [id number] #### [address] [address] Anion gap [Moles/Vol] 12 mmol/L Normal 4-12 [facility] Comment on above: Performed By: #### C [id number] #### [address] [address] Calcium [Mass/Vol] 7.5 mg/dL Low 8.5-10.3 [facility] Comment on above: Performed By: #### C [id number] #### [address] [address] Chloride [Moles/Vol] 100 mmol/L Normal 98-110 [facility] Comment on above: Performed By: #### C [id number] #### [address] [address] CO2 [Moles/Vol] 23 mmol/L Normal 22-32 [facility] Comment on above: Performed By: #### C [id number] #### [address] [address] Creatinine [Mass/Vol] 3.04 mg/dL High 0.61-1.24 [facility] Comment on above: Performed By: #### C [id number] #### [address] [place] [address] Glucose [Mass/Vol] 135 mg/dL High 70-99 [facility] Comment on above: Performed By: #### C [id number] #### [address] [address] Phosphate [Mass/Vol] 5.0 mg/dL High 2.5-4.6 [facility] Comment on above: Performed By: #### C D:[id number] #### [address] [address] Potassium [Moles/Vol] 4.4 mmol/L Normal 3.4-4.8 [facility] Comment on above: Result Comment: This test result could be falsely elevated due to interference from the hemolyzed condition of the specimen. Performed By: #### C [id number] #### [address] [address] Sodium [Moles/Vol] 135 mmol/L Normal 133-142 [facility] Comment on above: Performed By: #### C [id number] #### [address] [address] Urea nitrogen [Mass/Vol] 95 mg/dL High 8-26 [facility] Comment on above: Performed By: #### C [id number] #### [address] [address] Urea nitrogen/Creatinine [Mass ratio] 31.2 mg/mg High 10.0-20.0 [facility] Comment on above: Performed By: #### C [id number] #### [address] [address] .UA Microscp Aon 07-23-2024 UA Mucus Present Normal Absent [facility] Comment on above: Performed By: #### E GFR #### [address] [address] UA RBC Quant 0 /HPF Normal 0-5 [facility] Comment on above: Performed By: #### E GFR #### [address] [place] [address] UA Squepi Cells Quant <1 Normal 0-29 [facility] Comment on above: Performed By: #### E GFR #### [address] [address] UA WBC Quant 0 /HPF Normal 0-5 [facility] Comment on above: Performed By: #### E GFR #### [address] [address] .eGFRon 07-23-2024 Estimated GFR 15 mL/min/1.73m? Low >=60 [facility] Comment on above: Order Comment: Order [...] years Performed By: #### E GFR #### [address] [address] BNPon 07-23-2024 Natriuretic peptide B (Bld) [Mass/Vol] 114 pg/mL High 0-100 [facility] Comment on above: Performed By: #### C [id number] #### [address] [address] CBC w/ Diffon 07-23-2024 Erythrocyte distribution width (RBC) [Ratio] 13.5 % Normal 11.6-14.8 [facility] Comment on above: Performed By: #### C BC ####[address] [address] Hematocrit (Bld) [Volume fraction] 32.0 % Low 41.0-53.0 [facility] Comment on above: Performed By: #### C BC ####[place] [id number] Hemoglobin (Bld) [Mass/Vol] 11.1 g/dL Low 13.5-17.5 [facility] Comment on above: Performed By: #### C BC ####[place] [id number] MCH (RBC) [Entitic mass] 31.4 pg Normal 27.0-35.0 [facility] Comment on above: Performed By: #### C BC ####[place] [id number] MCHC 34.7 % Normal 31.0-37.0 [facility] Comment on above: Performed By: #### C BC ####[place] [id number] MCV (RBC) [Entitic vol] 90.6 fL Normal 80.0-100.0 [facility] Comment on above: Performed By: #### C BC ####[place] [id number] Platelet 267 x10*3/mcL Normal 150-450 [facility] Comment on above: Performed By: #### C BC ####[place] [id number] Platelet mean volume (Bld) [Entitic vol] 9.1 fL Normal 6.7-10.6 [facility] Comment on above: Performed By: #### C BC ####[place] [id number] RBC 3.53 x10*6/mcL Low 4.30-5.80 [facility] Comment on above: Performed By: #### C BC ####[place] [address] [place] [address] WBC 7.5 x10*3/mcL Normal 4.5-11.0 [facility] Comment on above: Performed By: #### C BC ####[address] [address] CMPon 07-23-2024 Albumin [Mass/Vol] 4.0 g/dL Normal 3.2-4.9 [facility] Comment on above: Performed By: #### R ENAL #### [address] [address] Albumin/Globulin [Mass ratio] 1.1 {ratio} Normal 1.1-2.2 [facility] Comment on above: Performed By: #### R ENAL #### [address] [address] Alk Phos 61 IU/L Normal 32-91 [facility] Comment on above: Performed By: #### R ENAL #### [address] [address] ALT [Catalytic activity/Vol] 15 U/L Low 17-63 [facility] Comment on above: Performed By: #### R ENAL #### [address] [address] Anion gap [Moles/Vol] 12 mmol/L Normal 4-12 [facility] Comment on above: Performed By: #### R ENAL #### [address] [address] AST [Catalytic activity/Vol] 15 U/L Normal 15-41 [facility] Comment on above: Performed By: #### R ENAL #### [address] [address] Bili Total 0.7 mg/dL Normal 0.3-1.2 [facility] Comment on above: Performed By: #### R ENAL #### [address] [place] [address] Calcium [Mass/Vol] 6.9 mg/dL Low 8.5-10.3 [facility] Comment on above: Performed By: #### R ENAL #### [address] [address] Chloride [Moles/Vol] 98 mmol/L Normal 98-110 [facility] Comment on above: Performed By: #### R ENAL #### [address] [address] CO2 [Moles/Vol] 23 mmol/L Normal 22-32 [facility] Comment on above: Performed By: #### R ENAL #### [address] [address] Creatinine [Mass/Vol] 4.11 mg/dL High 0.61-1.24 [facility] Comment on above: Performed By: #### R ENAL #### [address] [address] Glucose [Mass/Vol] 199 mg/dL High 70-99 [facility] Comment on above: Performed By: #### R ENAL #### [address] [address] Potassium [Moles/Vol] 4.0 mmol/L Normal 3.4-4.8 [facility] Comment on above: Performed By: #### R ENAL #### [address] [address] Protein [Mass/Vol] 7.5 g/dL Normal 6.5-8.1 [facility] Comment on above: Performed By: #### R ENAL #### [address] [address] Sodium [Moles/Vol] 133 mmol/L Normal 133-142 [facility] Comment on above: Performed By: #### R ENAL #### [address] [address] Urea nitrogen [Mass/Vol] 120 mg/dL High 8-26 [facility] Comment on above: Performed By: #### R ENAL #### [address] [address] Urea nitrogen/Creatinine [Mass ratio] 29.2 mg/mg High 10.0-20.0 [facility] Comment on above: Performed By: #### R ENAL #### [address] [address] Diff Autoon 07-23-2024 Baso Absolute 0.1 x10*3/mcL Normal 0.0-0.2 [facility] Comment on above: Performed By: #### C [id number] #### [address] [address] Basophils/100 WBC (Bld) 0.7 % Normal 0.0-1.2 [facility] Comment on above: Performed By: #### C [id number] #### [address] [address] Eos Absolute 0.1 x10*3/mcL Normal 0.0-0.4 [facility] Comment on above: Performed By: #### C [id number] #### [address] [address] Eosinophils/100 WBC (Bld) 0.9 % Normal 0.0-6.1 [facility] Comment on above: Performed By: #### C [id number] #### [address] [address] Lymph Absolute 1.5 x10*3/mcL Normal 1.0-4.8 [facility] Comment on above: Performed By: #### C [id number] #### [address] [address] Lymphocytes/100 WBC (Bld) 20.4 % Low 27.2-40.8 [facility] Comment on above: Performed By: #### C [id number] #### [address] [address] Collier Absolute 0.9 x10*3/mcL Normal 0.3-1.1 [facility] Comment on above: Performed By: #### C D:[id number] #### [address] [address] Monocytes/100 WBC (Bld) 11.8 % Normal 4.7-13.9 [facility] Comment on above: Performed By: #### C [id number] #### [address] [address] Neutro Absolute 5.0 x10*3/mcL Normal 1.8-7.7 [facility] Comment on above: Performed By: #### C [id number] #### [address] [address] Neutro Auto 66.2 % Normal 47.2-70.8 [facility] Comment on above: Performed By: #### C D:[id number] #### [address] [address] Ionized Calciumon 07-23-2024 Calcium Ionized 0.95 mmol/L Low 1.12-1.32 [facility] Comment on above: Performed By: #### M G #### [address] [address] Lactic Acid, Randomon 2024 Lactic Acid Lvl 1.0 mmol/L Normal 0.5-2.0 [facility] Comment on above: Performed By: #### . AMI 6 Hr #### [address] [address] Magnesiumon 07-23-2024 Magnesium [Mass/Vol] 1.7 mg/dL Normal 1.7-2.4 [facility] Comment on above: Performed By: #### R ENAL #### [address] [address] POC Glucose Randomon 025 Glucose [Mass/Vol] 192 mg/dL High 70-99 [facility] Comment on above: Performed By: #### M G #### [address] [address] Glucose [Mass/Vol] 176 mg/dL High 70-99 [facility] Comment on above: Performed By: #### . AMI 6 Hr #### [address] [address] Glucose [Mass/Vol] 191 mg/dL High 70-99 [facility] Comment on above: Performed By: #### C [id number] ####[address] [address] PTH-INTon 07-23-2024 PTH Intact 236 pg/mL High 12-88 [facility] Comment on above: Performed By: #### . AMI 6 Hr #### [address] [address] Phosphoruson 07-23-2024 Phosphate [Mass/Vol] 4.6 mg/dL Normal 2.5-4.6 [facility] Comment on above: Performed By: #### M G #### [address] [address] U Crea Randomon 07-23-2024 Creatinine [Mass/Vol] 54.1 mg/dL Normal [facility] Comment on above: Result Comment: The reference range has not been established for this test on a random urine sample. The test result should be interpreted based on clinical context. Performed By: #### E GFR #### [address] [address] U Eoon 07-23-2024 Eosinophil Smear Urine WBC QNS Normal None Bl [facility] Comment on above: Performed By: #### C [id number] #### [address] [address] UA Clarity Clear Normal Clear [facility] Comment on above: Performed By: #### C D:[id number] #### [address] [address] Ur WBC Qnt for Eos Cnt 0 /HPF Normal 0-5 Bl [facility] Comment on above: Performed By: #### C D:[id number] #### [address] [address] U Lyteson 07-23-2024 Chloride [Moles/Vol] 62 mmol/L Normal [facility] Comment on above: Performed By: #### E GFR #### [address] [address] Potassium [Moles/Vol] 19.1 mmol/L Normal [facility] Comment on above: Performed By: #### E GFR #### [address] [address] Sodium [Moles/Vol] 65 mmol/L Normal [facility] Comment on above: Performed By: #### E GFR #### [address] [address] U Na Randomon 07-23-2024 Sodium [Moles/Vol] 65 mmol/L Normal [facility] Comment on above: Performed By: #### C D:[id number] #### [address] [address] UA w Culture if Indon 2024 Color (U) Colorless Normal Yellow [facility] Comment on above: Order Comment: If pa tient catheterized >2 days, discontinue current catheter, and insert new catheter prior to collection Performed By: #### R ENAL #### [address] [address] Glucose (U) [Mass/Vol] 300 mg/dL Abnormal Negative [facility] Comment on above: Order Comment: If pa tient catheterized >2 days, discontinue current catheter, and insert new catheter prior to collection Performed By: #### R ENAL #### [address] [address] Ketones Ql (U) Negative Normal Negative [facility] Comment on above: Order Comment: If pa tient catheterized >2 days, discontinue current catheter, and insert new catheter prior to collection Performed By: #### R ENAL #### [address] [address] UA Blood Negative Normal Negative [facility] Comment on above: Order Comment: If pa tient catheterized >2 days, discontinue current catheter, and insert new catheter prior to collection Performed By: #### R ENAL #### [address] [address] UA Clarity Clear Normal Clear [facility] Comment on above: Order Comment: If pa tient catheterized >2 days, discontinue current catheter, and insert new catheter prior to collection Performed By: #### R ENAL #### [address] [address] UA Leukocyte Esterase Negative Normal Negative [facility] Comment on above: Order Comment: If pa tient catheterized >2 days, discontinue current catheter, and insert new catheter prior to collection Performed By: #### R ENAL #### [address] [address] UA Nitrite Negative Normal Negative [facility] Comment on above: Order Comment: If pa tient catheterized >2 days, discontinue current catheter, and insert new catheter prior to collection Performed By: #### R ENAL #### [address] [address] UA pH 5.0 Normal 4.5 - 7.8 [facility] Comment on above: Order Comment: If pa tient catheterized >2 days, discontinue current catheter, and insert new catheter prior to collection Performed By: #### R ENAL #### [address] [address] UA Protein Negative Normal Negative [facility] Comment on above: Order Comment: If pa tient catheterized >2 days, discontinue current catheter, and insert new catheter prior to collection Performed By: #### R ENAL #### [address] [address] UA Source Catheter Normal [facility] Comment on above: Order Comment: If pa tient catheterized >2 days, discontinue current catheter, and insert new catheter prior to collection Performed By: #### R ENAL #### [address] [address] UA Spec Grav 1.011 Normal 1.003-1.035 [facility] Comment on above: Order Comment: If pa tient catheterized >2 days, discontinue current catheter, and insert new catheter prior to collection Performed By: #### R ENAL #### [address] [address] [place] [address] UA Urobilinogen Normal Normal 0.2 - 1.0 [facility] Comment on above: Order Comment: If pa tient catheterized >2 days, discontinue current catheter, and insert new catheter prior to collection Performed By: #### R ENAL #### [address] [address] Urobilinogen (U) [Mass/Vol] Negative Normal Negative [facility] Comment on above: Order Comment: If pa tient catheterized >2 days, discontinue current catheter, and insert new catheter prior to collection Performed By: #### R ENAL #### [address] [address] US Renal and Bladderon 07-23 US Renal [...] Electronically Signed in Other Vendor System) Normal [facility] VL Extremity Venous Duplex [place] 07-23-2024 VL Extremity Venous Duplex [place] Preliminary Technologist Report A bilateral lower extremity venous exam was performed. Appeared to be a normal venous exam, all visualized vessels bilaterally were compressible and patent with no evidence of acute or chronic DVT. Preliminary results called to Rani in CCU at 2:25 pm. Electronic Tester: Christiano Phillips RVElizabeth _ Radiologist Report CLINICAL [...] Electronically Signed in Other Vendor System) Normal [facility] XR Chest 1 Viewon 07-23-2024 XR [...] Electronically Signed in Other Vendor System) Normal [facility] CBC with Auto Differentialon 07-22-2024 Basophils (Bld) [#/Vol] 0.03 10*3/uL [facility] Basophils/100 WBC (Bld) 0 % 0 - 2 % B on [facility] Eosinophils (Bld) [#/Vol] [facility] Eosinophils/100 WBC (Bld) 0 % Low 1 - 4 % [facility] Erythrocyte distribution width (RBC) [Ratio] 12.6 % 11.8 - 14.4 % [facility] Hematocrit (Bld) [Volume fraction] 32.3 % Low 40.7 - 50.3 % [facility] Hemoglobin (Bld) [Mass/Vol] 11.3 g/dL Low 13.0 - 17.0 g/dL [facility] Immature granulocytes (Bld) [#/Vol] 0.03 10*3/uL [facility] Immature granulocytes/100 WBC (Bld) 0 % 0 [facility] Interpretation and review of laboratory results Abnormal Bon [facility] Lymphocytes/100 WBC (Bld) 21 % Low 24 - 43 % [facility] Lymphocytes/100 WBC (Bld) 1.62 % [facility] MCH (RBC) [Entitic mass] 30.8 pg 25.2 - 33.5 pg [facility] MCHC (RBC) [Mass/Vol] 35.0 g/dL High 28.4 - 34.8 g/dL [facility] MCV (RBC) [Entitic vol] 88.0 fL 82.6 - 102.9 fL [facility] Monocytes/100 WBC (Bld) 10 % 3 - 12 % B on [facility] Monocytes/100 WBC (Bld) 0.79 % B on [facility] Neutrophils/100 WBC (Bld) 69 % High 36 - 65 % [facility] Nucleated RBC/100 WBC (Bld) [Ratio] 0.0 % 0.0 per 100 WBC [facility] Platelet mean volume (Bld) [Entitic vol] 11.4 fL 8.1 - 13.5 fL [facility] Platelets (Bld) [#/Vol] 309 10*3/uL [facility] RBC (Bld) [#/Vol] 3.67 10*6/uL Low 4.21 - 5.7 7 m/uL [facility] Segmented neutrophils/100 WBC (Bld) 5.40 % [facility] WBC other (Bld) [#/Vol] 7.9 B on [facility] CBC with Diffon 07-22-2024 Abs. Basophil 0.03 k/uL Normal 0.00-0.20 [facility] Comment on above: Performed By: #### M G, CDP, CP, URI, LIP ####[address] [place], [place] [address] Lab Director: Eder Herrera MD#### PTHNCA ####[address] [id number] lab Director: Jimenez Pruett MD Abs. Eosinophil <0.03 Normal 0.00-0.44 [facility] Comment on above: Performed By: #### M G, CDP, CP, URI, LIP ####[address] [place], [place] [address] Lab Director: Eder Herrera MD#### PTHNCA ####[place] [address] [place] [address] Lab Director: Jimenez Pruett MD Abs.Imm.Granulocyte 0.03 k/uL Normal 0.00-0.30 [facility] Comment on above: Performed By: #### M G, CDP, CP, URI, LIP ####[address] [place], [place] [address])[phone] Director: Eder Herrera MD#### PTHNCA ####[address] [address] Lab Director: Jimenez Pruett MD Abs.Neutrophil (Seg) 5.40 k/uL Normal 1.50-8.10 [facility] Comment on above: Performed By: #### M G, CDP, CP, URI, LIP ####[address] [place], [place] [address])[phone] Director: Eder Herrera MD#### PTHNCA ####[address] [address] Lab Director: Jimenez Pruett MD Basophils/100 WBC (Bld) 0 % Normal 0-2 [facility] Comment on above: Performed By: #### M G, CDP, CP, URI, LIP ####[address] [place] [address])[phone] Director: Eder Herrera MD#### PTHNCA ####[address] [address] Lab Director: Jimenez Pruett MD Eosinophils/100 WBC (Bld) 0 % Low 1-4 [facility] Comment on above: Performed By: #### M G, CDP, CP, URI, LIP ####[address] [place] [address]([facility])[phone] Director: Eder Herrera MD#### PTHNCA ####[address] [place] [address] Lab Director: Jimenez Pruett MD Erythrocyte distribution width (RBC) [Ratio] 12.6 % Normal 11.8-14.4 [facility] Comment on above: Performed By: #### M G, CDP, CP, URI, LIP ####[address] [place], [place] [address])[phone] Director: Eder Herrera MD#### PTHNCA ####[address] [place] [address] Lab Director: Jimenez Pruett MD Hematocrit (Bld) [Volume fraction] 32.3 % Low 40.7-50.3 [facility] Comment on above: Performed By: #### M G, CDP, CP, URI, LIP ####[address] [place] [address])[phone] Director: Eder Herrera MD#### PTHNCA ####[place] [address] Lab Director: Jimenez Pruett MD Hemoglobin (Bld) [Mass/Vol] 11.3 g/dL Low 13.0-17.0 [facility] Comment on above: Performed By: #### M G, CDP, CP, URI, LIP ####[address] [place] [address]39([facility])[phone] Director: Eder Herrera MD#### PTHNCA ####[address] [address] Lab Director: Jimenez Pruett MD Immature granulocytes/100 WBC (Bld) 0 % Normal 0 [facility] Comment on above: Performed By: #### M G, CDP, CP, URI, LIP ####[address] 7234783 Lab Director: Eder Herrera MD#### PTHNCA ####[place] [place] [address] Lab Director: Jimenez Pruett MD Lymphocytes (Bld) [#/Vol] 1.62 10*3/uL Normal 1.10-3.70 [facility] Comment on above: Performed By: #### M G, CDP, CP, URI, LIP ####[address] [place] 7234783 Lab Director: Eder Herrera MD#### PTHNCA ####[place] [address] Lab Director: Jimenez Pruett MD Lymphocytes/100 WBC (Bld) 21 % Low 24-43 [facility] Comment on above: Performed By: #### Bettina Saha, CDP, CP, URI, LIP ####[address] [place] 7234783 Lab Director: Eder Herrera MD#### PTHNCA ####[place] [address] Lab Director: Jimenez Pruett MD MCH (RBC) [Entitic mass] 30.8 pg Normal 25.2-33.5 [facility] Comment on above: Performed By: #### Bettina G, CDP, CP, URI, LIP ####[address] [place], [place] 0[address]83 Lab Director: Eder Herrera MD#### PTHNCA ####[address] [place] [address] Lab Director: Jimenez Pruett MD MCHC (RBC) [Mass/Vol] 35.0 g/dL High 28.4-34.8 [facility] Comment on above: Performed By: #### M G, CDP, CP, URI, LIP ####[address] [place] [address])[phone] Director: Eder Herrera MD#### PTHNCA ####[address] [phone] Director: Jimenez Pruett MD MCV (RBC) [Entitic vol] 88.0 fL Normal 82.6-102.9 [facility] Comment on above: Performed By: #### M G, CDP, CP, URI, LIP ####[address] [place] [address])[phone] Director: Eder Herrera MD#### PTHNCA ####[place], [place] [address])[phone] Director: Jimenez Pruett MD Monocytes (Bld) [#/Vol] 0.79 10*3/uL Normal 0.10-1.20 [facility] Comment on above: Performed By: #### M G, CDP, CP, URI, LIP ####[address] [place], [place] [address])[phone] Director: Eder Herrera MD#### PTHNCA ####[place], [place] [phone])[phone] Director: Jimenez Pruett MD Monocytes/100 WBC (Bld) 10 % Normal 3-12 [facility] Comment on above: Performed By: #### M G, CDP, CP, URI, LIP ####[address] [place] [address] Lab Director: Eder Herrera MD#### PTHNCA ####[address] [phone] Director: Jimenez Pruett MD Neutrophil (Seg) 69 % High 36-65 [facility] Comment on above: Performed By: #### M G, CDP, CP, URI, LIP ####[address] , [place] [phone] Director: Eder Herrera MD#### PTHNCA ####[address] [place], [place] [phone])[phone] Director: Jimenez Pruett MD NRBC Automated 0.0 per 100 WBC Normal 0.0 [facility] Comment on above: Performed By: #### M G, CDP, CP, URI, LIP ####[address] [place], [place] [phone])[phone] Director: Eder Herrera MD#### PTHNCA ####[address] [place], [place] [phone])[phone] Director: Jimenez Pruett MD Platelet mean volume (Bld) [Entitic vol] 11.4 fL Normal 8.1-13.5 [facility] Comment on above: Performed By: #### M G, CDP, CP, URI, LIP ####[address] , [place] [phone] Director: Eder Herrera MD#### PTHNCA ####[address] [address] Lab Director: Jimenez Pruett MD Platelets (Bld) [#/Vol] 309 10*3/uL Normal 138-453 [facility] Comment on above: Performed By: #### M G, CDP, CP, URI, LIP ####[address] [place] [address] Lab Director: Eder Herrera MD#### PTHNCA ####[address] [place], [place] [phone])[phone] Director: Jimenez Pruett MD RBC (Bld) [#/Vol] 3.67 10*6/uL Low 4.21-5.77 [facility] Comment on above: Performed By: #### M G, CDP, CP, URI, LIP ####[facility] [place], [place] [address] Lab Director: Eder Hererra MD#### PTHNCA ####[facility] [address] [place], [place] 5851708 Lab Director: Jimenez Pruett MD WBC (Bld) [#/Vol] 7.9 10*3/uL Normal 3.5-11.3 [facility] Comment on above: Performed By: #### M G, CDP, CP, URI, LIP ####[facility] [place] , [place] 600[address] lab Director: Eder Herrera MD#### PTHNCA ####[facility] [address] [place], [place] 2509208 lab Director: Jimenez Pruett MD [facility] 07-22-2024 Albumin [Mass/Vol] 4.3 g/dL 3.5 - 5.2 g/dL [facility] Albumin/Globulin [Mass ratio] 1.3 {ratio} 1.0 - 2.5 [facility] ALP [Catalytic activity/Vol] 83 U/L 40 - 129 U/L [facility] ALT [Catalytic activity/Vol] 10 U/L 10 - 50 U/L [facility] Anion gap [Moles/Vol] 20 mmol/L High 9 - 16 mmol/L [facility] AST [Catalytic activity/Vol] 13 U/L 10 - 50 U/L [facility] Bilirubin [Mass/Vol] 0.3 mg/dL 0.00 - 1.20 mg/dL [facility] Calcium [Mass/Vol] 7.7 mg/dL Low 8.6 - 10. 4 mg/dL [facility] Chloride [Moles/Vol] 86 mmol/L Low 98 - 10 7 mmol/L [facility] CO2 [Moles/Vol] 24 mmol/L 20 - 31 mmol/L [facility] Creatinine [Mass/Vol] 4.5 mg/dL High 0.70 - 1.20 mg/dL [facility] Yuliet Lancastert Rate 14 Low - PINF [facility] Comment on above: These results are not [...] 273 mg/dL High 74 - 99 mg/dL [facility] Potassium [Moles/Vol] 4.6 mmol/L 3.7 - 5.3 mmol/L [facility] Protein [Mass/Vol] 7.5 g/dL 6.6 - 8.7 g/dL [facility] Sodium [Moles/Vol] 130 mmol/L Low 136 - 145 mmol/L [facility] Urea nitrogen [Mass/Vol] 127 mg/dL Critically high 8 - 23 mg/dL [facility] Urea nitrogen/Creatinine [Mass ratio] 28 mg/mg High 9 - 20 [facility] COVID-19, Rapidon 07-22-2024 SARS-CoV-2 (COVID-19) RdRp gene ARIEL+probe Ql (Resp) Not detected Not Detected [facility] Comment on above: Rapid NAAT: The [...] Nucleic Acid Amplification Specimen Description .NASOPHARYNGEAL SWAB [facility] Bon [facility] CT ABDOMEN PELVIS WO CONTRAS Ton 07-22-2024 CT ABDOMEN PELVIS WO CONTRAST Normal [facility] CT Abdomen and Pelvis WO con traston 07-22-2024 1. No acute intra-abdominal or intrapelvic process. No findings to explain the patient's symptoms. 2. Additional incidental findings as above. [facility] EXAMINATION: CT OF THE ABDOMEN [...] redemonstrated. Multilevel degenerative changes to the spine. [facility] Cleve Shi M D - [...] symptoms. 2. Additional incidental findings as above. [facility] Radiology Study observation (narrative) [facility] CT Abdomen and Pelvis WO con trastOrdered By: Cleve Shi on 07-22-2024 [facility] Work Phone: Comp Metabolic Profon 2024 Albumin [Mass/Vol] 4.3 g/dL Normal 3.5-5.2 [facility] Comment on above: Performed By: #### M G, CDP, CP, URI, LIP ####[address] [place], [place] 5[address] Lab Director: Eder Herrera MD#### PTHNCA ####[address] [place] [address] Lab Director: Jimenez Pruett MD Albumin/Glob Ratio 1.3 Normal 1.0-2.5 [facility] Comment on above: Performed By: #### M G, CDP, CP, URI, LIP ####[address] [place], [place] 6[address] Lab Director: Eder Herrera MD#### PTHNCA ####[address] [address] Lab Director: Jimenez Pruett MD Alkaline Phos 83 U/L Normal 40-129 [facility] Comment on above: Performed By: #### M G, CDP, CP, URI, LIP ####[address] [place] [address] Lab Director: Eder Herrera MD#### PTHNCA ####[address] [place], [place] [phone] Director: Jimenez Pruett MD ALT [Catalytic activity/Vol] 10 U/L Normal 10-50 [facility] Comment on above: Performed By: #### M G, CDP, CP, URI, LIP ####[address] [place] [address] Lab Director: Eder Herrera MD#### PTHNCA ####[address] [place] [address] Lab Director: Jimenez Pruett MD Anion gap [Moles/Vol] 20 mmol/L High 9-16 [facility] Comment on above: Performed By: #### M G, CDP, CP, URI, LIP ####[address] [place], [place] 3577483 Lab Director: Eder Herrera MD#### PTHNCA ####[address] [phone] Director: Jimenez Pruett MD AST [Catalytic activity/Vol] 13 U/L Normal 10-50 [facility] Comment on above: Performed By: #### M G, CDP, CP, URI, LIP ####[address] [place] [address] Lab Director: Eder Herrera MD#### PTHNCA ####[address] [phone] Director: Jimenez Pruett MD Bilirubin [Mass/Vol] 0.3 mg/dL Normal 0.00-1.20 [facility] Comment on above: Performed By: #### M G, CDP, CP, URI, LIP ####[address] [place] [address] Lab Director: Eder Herrera MD#### PTHNCA ####[address] [phone] Director: Jimenez Pruett MD BUN/CRE Ratio 28 High 9-20 [facility] Comment on above: Performed By: #### M G, CDP, CP, URI, LIP ####[address] [place] [address] Lab Director: Eder Herrera MD#### PTHNCA ####[address] [place], [place] [phone] Lab Director: Jimenez Pruett MD Calcium [Mass/Vol] 7.7 mg/dL Low 8.6-10.4 [facility] Comment on above: Performed By: #### M G, CDP, CP, URI, LIP ####[address] [place], [place] 5274383 Lab Director: Eder Herrera MD#### PTHNCA ####[address] [address] Lab Director: Jimenez Pruett MD Chloride [Moles/Vol] 86 mmol/L Low 98-107 [facility] Comment on above: Performed By: #### M G, CDP, CP, URI, LIP ####[address] [place], [place] 1766683 Lab Director: Eder Herrera MD#### PTHNCA ####[address] [address] Lab Director: Jimenez Pruett MD CO2 [Moles/Vol] 24 mmol/L Normal 20-31 [facility] Comment on above: Performed By: #### M G, CDP, CP, URI, LIP ####[address] [place], [place] 8448083 Lab Director: Eder Herrera MD#### PTHNCA ####[address] [address] Lab Director: Jimenez Pruett MD Creatinine [Mass/Vol] 4.5 mg/dL High 0.70-1.20 [facility] Comment on above: Performed By: #### M G, CDP, CP, URI, LIP ####[address] [place], [place] 6227383 Lab Director: Eder Herrera MD#### PTHNCA ####[address] [phone] Lab Director: Jimenez Pruett MD GFR/1.73 sq M.predicted among non-blacks MDRD (S/P/Bld) [Vol rate/Area] 14 mL/min/{1.73_m2} Low >60 [facility] Comment on above: Result Comment: Thes [...] #### M G, CDP, CP, URI, LIP ####[address] [place] [phone] Lab Director: Eder Herrera MD#### PTHNCA ####[address] [address] Lab Director: Jimenez Pruett MD Glucose [Mass/Vol] 273 mg/dL High 74-99 [facility] Comment on above: Performed By: #### M G, CDP, CP, URI, LIP ####[address] [place] [address] Lab Director: Eder Herrera MD#### PTHNCA ####[address] [place] [address] Lab Director: Jimenez Pruett MD Potassium [Moles/Vol] 4.6 mmol/L Normal 3.7-5.3 [facility] Comment on above: Performed By: #### M G, CDP, CP, URI, LIP ####[address] [place], [place] 9230483 Lab Director: Eder Herrera MD#### PTHNCA ####[address] [place] [address] Lab Director: Jimenez Pruett MD Protein [Mass/Vol] 7.5 g/dL Normal 6.6-8.7 [facility] Comment on above: Performed By: #### M G, CDP, CP, URI, LIP ####[address] [place] [address] Lab Director: Eder Herrera MD#### PTHNCA ####[address] [address] Lab Director: Jimenez Pruett MD Sodium [Moles/Vol] 130 mmol/L Low 136-145 [facility] Comment on above: Performed By: #### M G, CDP, CP, URI, LIP ####[address] [place], [place] 1814583 Lab Director: Eder Herrera MD#### PTHNCA ####[address] [address] Lab Director: Jimenez Pruett MD Urea nitrogen [Mass/Vol] 127 mg/dL Critically high 8-23 [facility] Comment on above: Performed By: #### M G, CDP, CP, URI, LIP ####[address] , [place] 5342783 Lab Director: Eder Herrera MD#### PTHNCA ####[address] [address] Lab Director: Jimenez Pruett MD Flu A/B Ag Detectionon 07-22 Flu A Ag Detection Negative Normal NEG [facility] Comment on above: Result Comment: for Influenza A Antigen Performed By: #### F LUABA ####[address] [place] [address] Lab Director: Eder Herrera MD Flu B Ag Detection Negative Normal NEG [facility] Comment on above: Result Comment: for Influenza B Antigen. Performed By: #### F LUABA ####[address] [place], [place] 9040483 Lab Director: Eder Herrera MD Lactic Acidon 07-22-2024 Lactate (BldV) [Moles/Vol] 2.2 mmol/L 0.5 - 2.2 mmol/L [facility] Lactate [Moles/Vol] 2.2 mmol/L Normal 0.5-2.2 [facility] Comment on above: Performed By: #### L ACTIC ####[address] [place] [address] Lab Director: Eder Herrera MD Lipaseon 07-22-2024 Lipase [Catalytic activity/Vol] 138 U/L High 13 - 60 U/L [facility] Lipase [Catalytic activity/Vol] 138 U/L High 13-60 [facility] Comment on above: Performed By: #### Bettina Saha, BRADY, CP, URI, LIP ####[address] [place], [place] 4373283 Lab Director: Eder Herrera MD#### PTHNCA ####[address] [place], [place] 2125108 Lab Director: Jimenez Pruett MD Magnesiumon 7 Magnesium [Mass/Vol] 1.9 mg/dL 1.6 - 2 .4 mg/dL [facility] Magnesium [Mass/Vol] 1.9 mg/dL Normal 1.6-2.4 [facility] Comment on above: Performed By: #### M Yifan, BRADY, CP, URI, LIP ####[address] [place] [address] Lab Director: Eder Herrera MD#### PTHNCA ####[facility] [place], [place] [phone] Lab Director: Jimenez Pruett MD Microscopic Urinalysison Bacteria LM Ql (Urine sed) 2+ Abnormal None [facility] Casts LM.LPF (Urine sed) [#/Area] 20 TO 50 HYALINE /LPF [facility] Epithelial cells LM.HPF (Urine sed) [#/Area] 0 TO 2 [facility] Interpretation and review of laboratory results Abnormal [facility] RBC LM.HPF (Urine sed) [#/Area] 0 TO 2 [facility] WBC LM.HPF (Urine sed) [#/Area] 0 TO 2 [facility] No Panel Informationon 07-22 Interpretation and review of laboratory results Abnormal [facility] PTH, Intacton 07-22-2024 Interpretation and review of laboratory results Abnormal [facility] Parathyrin.intact [Mass/Vol] 137.0 pg/mL High 15 - 65 pg/mL [facility] PTH, Intact 137.0 pg/mL High 15-65 [facility] Comment on above: Performed By: #### M G, CDP, CP, URI, LIP ####[facility] [place] [address] Lab Director: Eder Herrera MD#### PTHNCA ####[address] [place], [place] 2923908 Lab Director: Jimenez Pruett MD Rapid influenza A/B antigens on 07-22-2024 FLUAV Ag Ql (Unsp spec) Negative NEGATIVE B on [facility] Comment on above: for Influenza A Anti gen FLUBV Ag Ql (Unsp spec) Negative NEGATIVE B on [facility] Comment on above: for Influenza B Anti gen. [facility] [id number] 07-22-2024 SARS-CoV-2 (COVID-19) RNA ARIEL+probe Ql (Unsp spec) Not detected Normal [facility] Comment on above: Result Comment: [...] Acid Amplification Performed By: #### C OVRB ####[address] , [place] 4532683 Lab Director: Eder Herrera MD UA w/Reflex Cultureon 2024 Bilirubin, SemiQt,Ur Negative Normal NEG [facility] Comment on above: Performed By: #### U SHAWN UAX ####[address] [place] [address] Lab Director: Eder Herrera MD Blood, Urine Negative Normal NEG [facility] Comment on above: Performed By: #### U SHAWN, UAX ####[address] , [place] 9250583 Lab Director: Eder Herrera MD Clarity (U) Clear Normal CLEAR [facility] Comment on above: Performed By: #### U SHAWN, UAX ####[address] , [place] 0586083 Lab Director: Eder Herrera MD Color (U) Yellow Normal YEL [facility] Comment on above: Performed By: #### U SHAWN, UAX ####[address] , [place] 5873783 Lab Director: Eder Herrera MD Glucose Ql (U) 2+ mg/dL Abnormal NEG [facility] Comment on above: Performed By: #### U SHAWN, UAX ####[address] , [place] 2891883 Lab Director: Eder Herrera MD Ketones Ql (U) Negative Normal NEG [facility] Comment on above: Performed By: #### U MICAO, UAX ####[address] , [place] 5235583 Lab Director: Eder Herrera MD Leukocyte esterase Test strip Ql (U) Negative Normal NEG [facility] Comment on above: Performed By: #### U MICAO, UAX ####[address] , [place] 0942783 Lab Director: Eder Herrera MD Nitrite,Ur Negative Normal NEG [facility] Comment on above: Performed By: #### U MICAO, UAX ####[address] , [place] 9116683 Lab Director: Eder Herrera MD PH,Ur 5.5 Normal 5.0-9.0 [facility] Comment on above: Performed By: #### U MICAO, UAX ####[address] [place] [address] Lab Director: Eder Herrera MD Protein Ql (U) Negative Normal NEG [facility] Comment on above: Performed By: #### U MICAO, UAX ####[address] , [place] 2354683 Lab Director: Eder Herrera MD Spec. [place],Ur 1.010 Normal 1.010-1.020 [facility] Comment on above: Performed By: #### U MICAO, UAX ####[address] , [place] 9190483 lab Director: Eder Herrera MD Urobilinogen,Ur Normal Normal 0.0-1.0 [facility] Comment on above: Performed By: #### U MICAO, UAX ####[facility] [place] [address] [facility] Director: Eder Herrera MD Uric Acidon 07-22-2024 Urate [Mass/Vol] 7.6 mg/dL High 3.4 - 7.0 mg/dL [facility] Urate [Mass/Vol] 7.6 mg/dL High 3.4-7.0 [facility] Comment on above: Performed By: #### M G, CDP, CP, URI, LIP ####[facility] [place] [address] lab Director: Eder Herrera MD#### PTHNCA ####[address] [place], [place] 0431408 lab Director: Jimenez Pruett MD Urinalysis with Reflex to Cu ltureon 07-22-2024 Bilirubin Ql (U) Negative NEGATIVE [facility] Clarity (U) Clear Clear [facility] Color (U) Yellow Yellow [facility] Glucose Test strip (U) [Mass/Vol] 2+ Abnormal NEGATIVE mg/dL [facility] Hemoglobin Auto test strip Ql (U) Negative NEGATIVE [facility] Interpretation and review of laboratory results Abnormal [facility] Ketones (U) [Mass/Vol] Negative NEGAT PAO mg/dL [facility] Leukocyte esterase Test strip Ql (U) Negative NEGATIVE [facility] Nitrite Ql (U) Negative NEGATIVE [facility] pH (U) 5.5 [pH] 5.0 - 9.0 [facility] Protein (U) [Mass/Vol] Negative NEGAT PAO mg/dL [facility] Specific gravity (U) [Rel density] 1.010 1.010 - 1.020 [facility] Urobilinogen Qn (U) Normal 0.0 - 1. 0 EU/dL [facility] Urinalysis,Microon 5 Bacteria 2+ Abnormal NONE [facility] Comment on above: Performed By: #### U MICAO, UAX ####[address] , [place] 967[address]83 lab Director: Eder Herrera MD Casts 20 TO 50 Normal [facility] Comment on above: Result Comment: HYAL INE Performed By: #### U MICAO, UAX ####[address] , [place] 8725983 lab Director: Eder Herrera MD Epithelial cells LM Ql (Urine sed) 0 TO 2 Normal 0-5 [facility] Comment on above: Performed By: #### U MICAO, UAX ####[address] , [place] 6534783 lab Director: Eder Herrera MD Urine RBC's 0 TO 2 Normal 0-2 [facility] Comment on above: Performed By: #### U MICAO, UAX ####[address] , [place] 0470183 lab Director: Eder Herrera MD Urine WBC's 0 TO 2 Normal 0-5 [facility] Comment on above: Performed By: #### U MICAO, UAX ####[address] , [place] 4517283 lab Director: Eder Herrera MD Magnesiumon 07-13-2024 Magnesium [Mass/Vol] 1.8 mg/dL 1.6 - 2 .4 mg/dL [facility] Magnesium [Mass/Vol] 1.8 mg/dL Normal 1.6-2.4 [facility] Comment on above: Performed By: #### M G, RENP ####[address] , [place] 6512383 lab Director: Eder Herrera MD No Panel Informationon 07-13 [facility] Renal Function Panelon 07-13 Albumin [Mass/Vol] 4.2 g/dL 3.5 - 5.2 g/dL [facility] Anion gap [Moles/Vol] 13 mmol/L 9 - 16 mmol/L [facility] Calcium [Mass/Vol] 8.9 mg/dL 8.6 - 10. 4 mg/dL [facility] Chloride [Moles/Vol] 96 mmol/L Low 98 - 10 7 mmol/L [facility] CO2 [Moles/Vol] 27 mmol/L 20 - 31 mmol/L [facility] Creatinine [Mass/Vol] 2.3 mg/dL High 0.70 - 1.20 mg/dL [facility] Est, Glom Filt Rate 31 Low - PINF [facility] Comment on above: These results are not [...] 137 mg/dL High 74 - 99 mg/dL [facility] Interpretation and review of laboratory results Abnormal [facility] Phosphate [Mass/Vol] 3.7 mg/dL 2.5 - 4 .5 mg/dL [facility] Potassium [Moles/Vol] 4.1 mmol/L 3.7 - 5.3 mmol/L [facility] Sodium [Moles/Vol] 136 mmol/L 136 - 145 mmol/L [facility] Urea nitrogen [Mass/Vol] 82 mg/dL High 8 - 23 mg/dL [facility] Urea nitrogen/Creatinine [Mass ratio] 36 mg/mg High 9 - 20 [facility] Albumin [Mass/Vol] 4.2 g/dL Normal 3.5-5.2 [facility] Comment on above: Performed By: #### VALARIE Foster ####[facility] [place] [address] Lab Director: Eder Herrera MD Anion gap [Moles/Vol] 13 mmol/L Normal 9-16 [facility] Comment on above: Performed By: #### Bettina Saha, RENP ####[address] , [place] 189[address] lab Director: Eder Herrera MD BUN/CRE Ratio 36 High 9-20 [facility] Comment on above: Performed By: #### Bettina Saha, RENP ####[address] , [place] 6721583 lab Director: Eder Herrera MD Calcium [Mass/Vol] 8.9 mg/dL Normal 8.6-10.4 [facility] Comment on above: Performed By: #### Bettina Saha, RENP ####[address] , [place] 9276083 Lab Director: Eder Herrera MD Chloride [Moles/Vol] 96 mmol/L Low 98-107 [facility] Comment on above: Performed By: #### Bettina Saha, RENP ####[address] [place] [address] Lab Director: Eder Herrera MD CO2 [Moles/Vol] 27 mmol/L Normal 20-31 [facility] Comment on above: Performed By: #### Bettina Saha, RENP ####[address] , [place] 0798483 Lab Director: Eder Herrera MD Creatinine [Mass/Vol] 2.3 mg/dL High 0.70-1.20 [facility] Comment on above: Performed By: #### Bettina Saha, RENP ####[address] , [place] 7459783 lab Director: Eder Herrera MD GFR/1.73 sq M.predicted among non-blacks MDRD (S/P/Bld) [Vol rate/Area] 31 mL/min/{1.73_m2} Low >60 [facility] Comment on above: Result Comment: Thes [...] secretion. Performed By: #### Bettina Saha, RENP ####[address] [place] [address] Lab Director: Eder Herrera MD Glucose [Mass/Vol] 137 mg/dL High 74-99 [facility] Comment on above: Performed By: #### Bettina Saha, RENP ####[address] [place] [address] Lab Director: Eder Herrera MD Phosphorus, Inorg. 3.7 mg/dL Normal 2.5-4.5 [facility] Comment on above: Performed By: #### Bettina Saha, RENP ####[address] [place] [address] Lab Director: Eder Herrera MD Potassium [Moles/Vol] 4.1 mmol/L Normal 3.7-5.3 [facility] Comment on above: Performed By: #### Bettina Saha, RENP ####[address] [place] [address] Lab Director: Eder Herrera MD Sodium [Moles/Vol] 136 mmol/L Normal 136-145 [facility] Comment on above: Performed By: #### Bettina Saha, RENP ####[address] [place] [address] Lab Director: Eder Herrera MD Urea nitrogen [Mass/Vol] 82 mg/dL High 8-23 [facility] Comment on above: Performed By: #### Bettina Saha, RENP ####[facility] [place], [place] 0168383 Lab Director: Eder Herrera MD PTH, Intacton 06-28-2024 Interpretation and review of laboratory results Abnormal [facility] Parathyrin.intact [Mass/Vol] 182.0 pg/mL High 15 - 65 pg/mL [facility] PTH, Intact 182.0 pg/mL High 15-65 [facility] Comment on above: Performed By: #### U AX, MG, RENP, URI, URTPRT, UMICAO, CBC ####[facility] [place] [address] lab Director: Eder Herrera MD#### PTHNCA ####[facility] [address] [place], [place] 1115208 lab Director: iJmenez Pruett MD CBCon 06-27-2024 Erythrocyte distribution width (RBC) [Ratio] 12.6 % 11.8 - 14.4 % [facility] Hematocrit (Bld) [Volume fraction] 36.8 % Low 40.7 - 50.3 % [facility] Hemoglobin (Bld) [Mass/Vol] 11.9 g/dL Low 13.0 - 17.0 g/dL [facility] Interpretation and review of laboratory results Abnormal [facility] MCH (RBC) [Entitic mass] 29.8 pg 25.2 - 33.5 pg [facility] MCHC (RBC) [Mass/Vol] 32.3 g/dL 28.4 - 34.8 g/dL [facility] MCV (RBC) [Entitic vol] 92.2 fL 82.6 - 102.9 fL [facility] Nucleated RBC/100 WBC (Bld) [Ratio] 0.0 % 0.0 per 100 WBC [facility] Platelet mean volume (Bld) [Entitic vol] 10.4 fL 8.1 - 13.5 fL [facility] Platelets (Bld) [#/Vol] 320 10*3/uL [facility] RBC (Bld) [#/Vol] 3.99 10*6/uL Low 4.21 - 5.7 7 m/uL [facility] WBC other (Bld) [#/Vol] 6.9 B on [facility] Erythrocyte distribution width (RBC) [Ratio] 12.6 % Normal 11.8-14.4 [facility] Comment on above: Performed By: #### U AX, MG, RENP, URI, URTPRT, UMICAO, CBC ####[address] [place], [place] 8615583 Lab Director: Eder Herrera MD#### PTHNCA ####[address] [address] Lab Director: Jimenez Pruett MD Hematocrit (Bld) [Volume fraction] 36.8 % Low 40.7-50.3 [facility] Comment on above: Performed By: #### U AX, MG, RENP, URI, URTPRT, UMICAO, CBC ####[address] [place] 5605983 Lab Director: Eder Herrera MD#### PTHNCA ####[address] [address] Lab Director: Jimenez Pruett MD Hemoglobin (Bld) [Mass/Vol] 11.9 g/dL Low 13.0-17.0 [facility] Comment on above: Performed By: #### U AX, MG, RENP, URI, URTPRT, UMICAO, CBC ####[address] [place] 5605983 Lab Director: Eder Herrera MD#### PTHNCA ####[address] [phone] Lab Director: Jimenez Pruett MD MCH (RBC) [Entitic mass] 29.8 pg Normal 25.2-33.5 [facility] Comment on above: Performed By: #### U AX, MG, RENP, URI, URTPRT, UMICAO, CBC ####[address] [place] 5605983 Lab Director: Eder Herrera MD#### PTHNCA ####[address] 9282308 Lab Director: Jimenez Pruett MD MCHC (RBC) [Mass/Vol] 32.3 g/dL Normal 28.4-34.8 [facility] Comment on above: Performed By: #### U AX, MG, RENP, URI, URTPRT, UMICAO, CBC ####[address] [place] 5605983 Lab Director: Eder Herrera MD#### PTHNCA ####[place] [address] Lab Director: Jimenez Pruett MD MCV (RBC) [Entitic vol] 92.2 fL Normal 82.6-102.9 [facility] Comment on above: Performed By: #### U AX, MG, RENP, URI, URTPRT, UMICAO, CBC ####[address] [place] 5605983 Lab Director: Eder Herrera MD#### PTHNCA ####[address] [address] Lab Director: Jimenez Pruett MD NRBC Automated 0.0 per 100 WBC Normal 0.0 [facility] Comment on above: Performed By: #### U AX, MG, RENP, URI, URTPRT, UMICAO, CBC ####[address] [place] 5605983 Lab Director: Eder Herrera MD#### PTHNCA ####[facility] [address] [place], [place] [phone] Director: Jimenez Pruett MD Platelet mean volume (Bld) [Entitic vol] 10.4 fL Normal 8.1-13.5 [facility] Comment on above: Performed By: #### U AX, MG, RENP, URI, URTPRT, UMICAO, CBC ####[address] [place] [address]([facility])[phone] Director: Eder Herrera MD#### PTHNCA ####[address] [place], [place] [address])[phone] Director: Jimenez Pruett MD Platelets (Bld) [#/Vol] 320 10*3/uL Normal 138-453 [facility] Comment on above: Performed By: #### U AX, MG, RENP, URI, URTPRT, UMICAO, CBC ####[address] [place] 5605[address] Lab Director: Eder Herrera MD#### PTHNCA ####[address] [place], [place] [phone] Director: Jimenez Pruett MD RBC (Bld) [#/Vol] 3.99 10*6/uL Low 4.21-5.77 [facility] Comment on above: Performed By: #### U AX, MG, RENP, URI, URTPRT, UMICAO, CBC ####[address] [place], [place] 1195083 Lab Director: Eder Herrera MD#### PTHNCA ####[address] [phone] Director: Jimenez Pruett MD WBC (Bld) [#/Vol] 6.9 10*3/uL Normal 3.5-11.3 [facility] Comment on above: Performed By: #### U AX, MG, RENP, URI, URTPRT, UMICAO, CBC ####[facility] [place] [address] [facility] Director: Eder Herrera MD#### PTHNCA ####[address] [place], [place] 1147608 Lab Director: Jimenez Pruett MD Magnesiumon 06-27-2024 Magnesium [Mass/Vol] 1.7 mg/dL 1.6 - 2 .4 mg/dL [facility] Magnesium [Mass/Vol] 1.7 mg/dL Normal 1.6-2.4 [facility] Comment on above: Performed By: #### U AX, MG, RENP, URI, URTPRT, UMICAO, CBC ####[address] [place] [address] [facility] Director: Eder Herrera MD#### PTHNCA ####[address] [place], [place] 1439808 Lab Director: Jimenez Pruett MD Microscopic Urinalysison Epithelial cells LM.HPF (Urine sed) [#/Area] 2 TO 5 [facility] RBC LM.HPF (Urine sed) [#/Area] None [facility] WBC LM.HPF (Urine sed) [#/Area] 0 TO 2 [facility] No Panel Informationon 06-27 [facility] Protein / creatinine ratio, urineon 06-27-2024 Creatinine (U) [Mass/Vol] 61.8 mg/dL 39.0 - 259.0 mg/dL [facility] Protein (U) [Mass/Vol] 7 mg/dL [facility] Comment on above: No normal range esta blished. Urine Total Protein Creatinine Ratio 0.11 0.00 - 0.20 [facility] Protein,Tot,Alvarado Uron 2024 Creatinine [Mass/Vol] 61.8 mg/dL Normal 39.0-259.0 [facility] Comment on above: Performed By: #### U AX, MG, RENP, URI, URTPRT, UMICAO, CBC ####[address] [place], [place] 4832283 Lab Director: Eder Herrera MD#### PTHNCA ####[address] [place] [address] Lab Director: Jimenez Pruett MD Tot Prot. Conc. 7 mg/dL Normal [facility] Comment on above: Result Comment: No n ormal range established. Performed By: #### U AX, MG, RENP, URI, URTPRT, UMICAO, CBC ####[address] [place], [place] 0901283 Lab Director: Eder Herrera MD#### PTHNCA ####[address] [place] [address] Lab Director: Jimenez Pruett MD TP/Cre Ratio 0.11 Normal 0.00-0.20 [facility] Comment on above: Performed By: #### U AX, MG, RENP, URI, URTPRT, UMICAO, CBC ####[address] [place], [place] 3683183 Lab Director: Eder Herrera MD#### PTHNCA ####[address] [place] [address] Lab Director: Jimenez Pruett MD Renal Function Panelon 06-27 Albumin [Mass/Vol] 4.0 g/dL 3.5 - 5.2 g/dL [facility] Anion gap [Moles/Vol] 11 mmol/L 9 - 16 mmol/L [facility] Calcium [Mass/Vol] 8.4 mg/dL Low 8.6 - 10. 4 mg/dL [facility] Chloride [Moles/Vol] 99 mmol/L 98 - 10 7 mmol/L [facility] CO2 [Moles/Vol] 26 mmol/L 20 - 31 mmol/L [facility] Creatinine [Mass/Vol] 1.9 mg/dL High 0.70 - 1.20 mg/dL [facility] Yuliet [place] Rate 39 Low - PINF [facility] Comment on above: These results are not [...] 108 mg/dL High 74 - 99 mg/dL [facility] Interpretation and review of laboratory results Abnormal [facility] Phosphate [Mass/Vol] 3.1 mg/dL 2.5 - 4 .5 mg/dL [facility] Potassium [Moles/Vol] 4.7 mmol/L 3.7 - 5.3 mmol/L [facility] [facility] Sodium [Moles/Vol] 136 mmol/L 136 - 145 mmol/L [facility] Urea nitrogen [Mass/Vol] 54 mg/dL High 8 - 23 mg/dL [facility] Urea nitrogen/Creatinine [Mass ratio] 28 mg/mg High 9 - 20 [facility] Albumin [Mass/Vol] 4.0 g/dL Normal 3.5-5.2 [facility] Comment on above: Performed By: #### U AX, MG, RENP, URI, URTPRT, UMICAO, CBC ####[facility] [place] [address] Lab Director: Eder Herrera MD#### PTHNCA ####[facility] [address] [place] [address] Lab Director: Jimenez Pruett MD Anion gap [Moles/Vol] 11 mmol/L Normal 9-16 [facility] Comment on above: Performed By: #### U AX, MG, RENP, URI, URTPRT, UMICAO, CBC ####[address] [place], [place] 7[address]83 Lab Director: Eder Herrera MD#### PTHNCA ####[address] [address] Lab Director: Jimenez Pruett MD BUN/CRE Ratio 28 High 9-20 [facility] Comment on above: Performed By: #### U AX, MG, RENP, URI, URTPRT, UMICAO, CBC ####[address] [place], [place] 0465483 Lab Director: Eder Herrera MD#### PTHNCA ####[address] [address] Lab Director: Jimenez Pruett MD Calcium [Mass/Vol] 8.4 mg/dL Low 8.6-10.4 [facility] Comment on above: Performed By: #### U AX, MG, RENP, URI, URTPRT, UMICAO, CBC ####[address] , [place] 8599583 Lab Director: Eder Herrera MD#### PTHNCA ####[address] [address] Lab Director: Jimenez Pruett MD Chloride [Moles/Vol] 99 mmol/L Normal 98-107 [facility] Comment on above: Performed By: #### U AX, MG, RENP, URI, URTPRT, UMICAO, CBC ####[address] [place], [place] 5659383 Lab Director: Eder Herrera MD#### PTHNCA ####[address] [address] Lab Director: Jimenez Pruett MD CO2 [Moles/Vol] 26 mmol/L Normal 20-31 [facility] Comment on above: Performed By: #### U AX, MG, RENP, URI, URTPRT, UMICAO, CBC ####[facility] [place] [address] Lab Director: Eder Herrera MD#### PTHNCA ####[facility] [address] [place], [place] 8444708 Lab Director: Jimenez Pruett MD Creatinine [Mass/Vol] 1.9 mg/dL High 0.70-1.20 [facility] Comment on above: Performed By: #### U AX, MG, RENP, URI, URTPRT, UMICAO, CBC ####[address] [place], [place] 4639283 Lab Director: Eder Herrera MD#### PTHNCA ####[address] [place], [place] 9516608 Lab Director: Jimenez Pruett MD GFR/1.73 sq M.predicted among non-blacks MDRD (S/P/Bld) [Vol rate/Area] 39 mL/min/{1.73_m2} Low >60 [facility] Comment on above: Result Comment: Thes [...] AX, MG, RENP, URI, URTPRT, UMICAO, CBC ####[address] [place], [place] 4633583 Lab Director: Eder Herrera MD#### PTHNCA ####[address] [place] [address] Lab Director: Jimenez Pruett MD Glucose [Mass/Vol] 108 mg/dL High 74-99 [facility] Comment on above: Performed By: #### U AX, MG, RENP, URI, URTPRT, UMICAO, CBC ####[address] [place], [place] [address])[phone] Director: Eder Herrera MD#### PTHNCA ####[address] [address] Lab Director: Jimenez Pruett MD Phosphorus, Inorg. 3.1 mg/dL Normal 2.5-4.5 [facility] Comment on above: Performed By: #### U AX, MG, RENP, URI, URTPRT, UMICAO, CBC ####[address] [place] [address])[phone] Director: Eder Herrera MD#### PTHNCA ####[address] [address] Lab Director: Jimenez Pruett MD Potassium [Moles/Vol] 4.7 mmol/L Normal 3.7-5.3 [facility] Comment on above: Performed By: #### U AX, MG, RENP, URI, URTPRT, UMICAO, CBC ####[address] [place], [place] 8466[address] Lab Director: Eder Herrera MD#### PTHNCA ####[address] [address] Lab Director: Jimenez Pruett MD Sodium [Moles/Vol] 136 mmol/L Normal 136-145 [facility] Comment on above: Performed By: #### U AX, MG, RENP, URI, URTPRT, UMICAO, CBC ####[address] , [place] 6375283 Lab Director: Eder Herrera MD#### PTHNCA ####[address] [address] Lab Director: Jimenez Pruett MD Urea nitrogen [Mass/Vol] 54 mg/dL High 8-23 [facility] Comment on above: Performed By: #### U AX, MG, RENP, URI, URTPRT, UMICAO, CBC ####[address] [place], [place] 8911883 Lab Director: Eder Herrera MD#### PTHNCA ####[address] [address] Lab Director: Jimenez Pruett MD UA w/Reflex Cultureon 2024 Bilirubin, SemiQt,Ur Negative Normal NEG [facility] Comment on above: Performed By: #### U AX, MG, RENP, URI, URTPRT, UMICAO, CBC ####[address] , [place] 7288783 Lab Director: Eder Herrera MD#### PTHNCA ####[address] [address] Lab Director: Jimenez Pruett MD Blood, Urine Negative Normal NEG [facility] Comment on above: Performed By: #### U AX, MG, RENP, URI, URTPRT, UMICAO, CBC ####[address] , [place] 4950783 Lab Director: Eder Herrera MD#### PTHNCA ####[address] 1691808 Lab Director: Jimenez Prutet MD Clarity (U) Clear Normal CLEAR [facility] Comment on above: Performed By: #### U AX, MG, RENP, URI, URTPRT, UMICAO, CBC ####[facility] [place] , [place] 3282583 Lab Director: Eder Herrera MD#### PTHNCA ####[address] [place], [place] 5513308 Lab Director: Jimenez Pruett MD Color (U) Yellow Normal YEL [facility] Comment on above: Performed By: #### U AX, MG, RENP, URI, URTPRT, UMICAO, CBC ####[address] , [place] 7931083 Lab Director: Eder Herrera MD#### PTHNCA ####[address] 5128208 Lab Director: Jimenez Pruett MD Glucose Ql (U) Negative Normal NEG [facility] Comment on above: Performed By: #### U AX, MG, RENP, URI, URTPRT, UMICAO, CBC ####[address] , [place] 2331183 Lab Director: Eder Herrera MD#### PTHNCA ####[address] 4894708 Lab Director: Jimenez Pruett MD Ketones Ql (U) Negative Normal NEG [facility] Comment on above: Performed By: #### U AX, MG, RENP, URI, URTPRT, UMICAO, CBC ####[facility] [place] , [place] 1922183 Lab Director: Eder Herrera MD#### PTHNCA ####[address] 8043008 Lab Director: Jimenez Pruett MD Leukocyte esterase Test strip Ql (U) Negative Normal NEG [facility] Comment on above: Performed By: #### U AX, MG, RENP, URI, URTPRT, UMICAO, CBC ####[address] [place], [place] [address])[phone] Director: Eder Herrera MD#### PTHNCA ####[address] [address] Lab Director: Jimenez Pruett MD Nitrite,Ur Negative Normal NEG [facility] Comment on above: Performed By: #### U AX, MG, RENP, URI, URTPRT, UMICAO, CBC ####[address] [place], [place] [address])[phone] Director: Eder Herrera MD#### PTHNCA ####[address] [address] Lab Director: Jimenez Pruett MD PH,Ur 6.0 Normal 5.0-9.0 [facility] Comment on above: Performed By: #### U AX, MG, RENP, URI, URTPRT, UMICAO, CBC ####[address] [place] 5605983 Lab Director: Eder Herrera MD#### PTHNCA ####[address] [address] Lab Director: Jimenez Pruett MD Protein Ql (U) Negative Normal NEG [facility] Comment on above: Performed By: #### U AX, MG, RENP, URI, URTPRT, UMICAO, CBC ####[address] [place], [place] 3551683 Lab Director: Eder Herrera MD#### PTHNCA ####[address] [place] [address] Lab Director: Jimenez Pruett MD Spec. [place],Ur 1.010 Normal 1.010-1.020 [facility] Comment on above: Performed By: #### U AX, MG, RENP, URI, URTPRT, UMICAO, CBC ####[address] [place], [place] 1879183 Lab Director: Eder Herrera MD#### PTHNCA ####[address] [place], [place] 4153408 Lab Director: Jimenez Pruett MD Urobilinogen,Ur Normal Normal 0.0-1.0 [facility] Comment on above: Performed By: #### U AX, MG, RENP, URI, URTPRT, UMICAO, CBC ####[address] [place], [place] 5212783 lab Director: Eder Herrera MD#### PTHNCA ####[address] [address] Lab Director: Jimenez Pruett MD Uric Acidon 06-27-2024 Urate [Mass/Vol] 7.0 mg/dL 3.4 - 7.0 mg/dL [facility] Urate [Mass/Vol] 7.0 mg/dL Normal 3.4-7.0 [facility] Comment on above: Performed By: #### U AX, MG, RENP, URI, URTPRT, UMICAO, CBC ####[address] [place] 5605983 lab Director: Eder Herrera MD#### PTHNCA ####[address] [place] [address] Lab Director: Jimenez Pruett MD Urinalysis with Reflex to Cu ltureon 06-27-2024 Bilirubin Ql (U) Negative NEGATIVE [facility] Clarity (U) Clear Clear Bon [facility] Color (U) Yellow Yellow Bon [facility] Glucose Test strip (U) [Mass/Vol] Negative NEGATIVE mg/dL [facility] Hemoglobin Auto test strip Ql (U) Negative NEGATIVE [facility] Ketones (U) [Mass/Vol] Negative NEGAT PAO mg/dL [facility] Leukocyte esterase Test strip Ql (U) Negative NEGATIVE [facility] Nitrite Ql (U) Negative NEGATIVE [facility] pH (U) 6.0 [pH] 5.0 - 9.0 [facility] Protein (U) [Mass/Vol] Negative NEGAT PAO mg/dL [facility] Specific gravity (U) [Rel density] 1.010 1.010 - 1.020 [facility] Urobilinogen Qn (U) Normal 0.0 - 1. 0 EU/dL [facility] Urinalysis,Microon 5 Epithelial cells LM Ql (Urine sed) 2 TO 5 Normal 0-5 [facility] Comment on above: Performed By: #### U AX, MG, RENP, URI, URTPRT, UMICAO, CBC ####[facility] [place] [address] Lab Director: Eder Herrera MD#### PTHNCA ####[address] [phone] Lab Director: Jmienez Pruett MD Urine RBC's None Normal 0-2 [facility] Comment on above: Performed By: #### U AX, MG, RENP, URI, URTPRT, UMICAO, CBC ####[facility] [place] [address] Lab Director: Eder Herrera MD#### PTHNCA ####[address] [place], [place] 9786908 Lab Director: Jimenez Pruett MD Urine WBC's 0 TO 2 Normal 0-5 [facility] Comment on above: Performed By: #### U AX, MG, RENP, URI, URTPRT, UMICAO, CBC ####[facility] [place], [place] 6027983 Lab Director: Eder Herrera MD#### PTHNCA ####[facility] [place], [place] 0182708 lab Director: Jimenez Pruett MD Microscopic Urinalysison Epithelial cells LM.HPF (Urine sed) [#/Area] 0 TO 2 [facility] RBC LM.HPF (Urine sed) [#/Area] None [facility] WBC LM.HPF (Urine sed) [#/Area] None [facility] Protein / creatinine ratio, urineon 05-13-2024 Creatinine (U) [Mass/Vol] 78.0 mg/dL 39.0 - 259.0 mg/dL [facility] Protein (U) [Mass/Vol] mg/dL mg/dL [place] n [facility] Comment on above: No normal range esta blished. Urine Total Protein Creatinine Ratio Can not be calculated 0.00 - 0.20 [facility] Protein,Tot,Alvarado Uron 2023 Creatinine [Mass/Vol] 78.0 mg/dL Normal 39.0-259.0 [facility] Comment on above: Performed By: #### U RTPRT, [facility], UAX ####[address] , [place] 9191983 Lab Director: Eder Herrera MD Tot Prot. Conc. <6 Normal [facility] Comment on above: Result Comment: No n ormal range established. Performed By: #### U RTPRT, [facility], UAX ####[facility] [place], [place] 1540983 Lab Director: Eder Herrera MD TP/Cre Ratio Can not be calculated Normal 0.00-0.20 [facility] Comment on above: Performed By: #### U RTPRT, UMICAO, UAX ####[address] [place] [address] Lab Director: Eder Herrera MD UA w/Reflex Cultureon 2023 Bilirubin, SemiQt,Ur Negative Normal NEG [facility] Comment on above: Performed By: #### U RTPRT, UMICAO, UAX ####[address] [place] [address] Lab Director: Eder Herrera MD Blood, Urine Negative Normal NEG [facility] Comment on above: Performed By: #### U RTPRT, UMICAO, UAX ####[address] , [place] 4068083 Lab Director: Eedr Herrera MD Clarity (U) Clear Normal CLEAR [facility] Comment on above: Performed By: #### U RTPRT, UMICAO, UAX ####[address] , [place] 3727583 Lab Director: Eder Herrera MD Color (U) Yellow Normal YEL [facility] Comment on above: Performed By: #### U RTPRT, UMICAO, UAX ####[address] [place] [address] Lab Director: Eder Herrera MD Glucose Ql (U) 3+ mg/dL Abnormal NEG [facility] Comment on above: Performed By: #### U RTPRT, UMICAO, UAX ####[address] , [place] 8483283 Lab Director: Eder Herrera MD Ketones Ql (U) Negative Normal NEG [facility] Comment on above: Performed By: #### U RTPRT, UMICAO, UAX ####[address] , [place] 1823683 Lab Director: Eder Herrera MD Leukocyte esterase Test strip Ql (U) Negative Normal NEG [facility] Comment on above: Performed By: #### U RTPRT, UMICAO, UAX ####[address] , [place] 9456383 lab Director: Eder Herrera MD Nitrite,Ur Negative Normal NEG [facility] Comment on above: Performed By: #### U RTPRT, [facility], [facility] ####[address] , [place] 8283983 lab Director: Eder Herrera MD PH,Ur 6.0 Normal 5.0-9.0 [facility] Comment on above: Performed By: #### U RTPRT, [facility], UAX ####[address] , [place] 8867083 lab Director: Eder Herrera MD Protein Ql (U) Negative Normal NEG [facility] Comment on above: Performed By: #### U RTPRT, [facility], UAX ####[address] [place] [address] lab Director: Eder Herrera MD Spec. [place],Ur 1.010 Normal 1.010-1.020 [facility] Comment on above: Performed By: #### U RTPRT, UMICAO, UAX ####[address] [place] [address] lab Director: Eder Herrera MD Urobilinogen,Ur Normal Normal 0.0-1.0 [facility] Comment on above: Performed By: #### U RTPRT, [facility], UAX ####[address] [place] [address] lab Director: Eder Herrera MD Urinalysis with Reflex to Cu ltureon 05-13-2024 Bilirubin Ql (U) Negative NEGATIVE [facility] Glucose Test strip (U) [Mass/Vol] 3+ Abnormal NEGATIVE mg/dL [facility] Hemoglobin Auto test strip Ql (U) Negative NEGATIVE [facility] Interpretation and review of laboratory results Abnormal [facility] Ketones (U) [Mass/Vol] Negative NEGAT PAO mg/dL [facility] Nitrite Ql (U) Negative NEGATIVE [facility] pH (U) 6.0 [pH] 5.0 - 9.0 [facility] Protein (U) [Mass/Vol] Negative NEGAT PAO mg/dL [facility] Specific gravity (U) [Rel density] 1.010 1.010 - 1.020 [facility] Urobilinogen Qn (U) Normal 0.0 - 1. 0 EU/dL [facility] Urinalysis,Microon 4 Epithelial cells LM Ql (Urine sed) 0 TO 2 Normal 0-5 [facility] Comment on above: Performed By: #### U RTPRT, [facility], UAX ####[facility] , [place] 6749383 lab Director: Eder Herrera MD Urine RBC's None Normal 0-2 [facility] Comment on above: Performed By: #### U RTPRT, [facility], UAX ####[facility] [place] [address] , [place] 6409583 lab Director: Eder Herrera MD Urine WBC's None Normal 0-5 [facility] Comment on above: Performed By: #### U RTPRT, [facility], UAX ####[facility] [place] [place] , [place] 5649383 lab Director: Eder Herrera MD CBCon 05-11-2024 Erythrocyte distribution width (RBC) [Ratio] 12.4 % Normal 11.8-14.4 [facility] Comment on above: Performed By: #### M G, RENP, URI, CBC ####[address] [place], [place] 2593683 Lab Director: Eder Herrera MD#### PTHNCA ####[address] 7192108 Lab Director: Jimenez Pruett MD Hematocrit (Bld) [Volume fraction] 39.9 % Low 40.7-50.3 [facility] Comment on above: Performed By: #### VALARIE Foster URI, CBC ####[address] [place], [place] 5180583 Lab Director: Eder Herrera MD#### PTHNCA ####[address] [address] Lab Director: Jimenez Pruett MD Hemoglobin (Bld) [Mass/Vol] 13.6 g/dL Normal 13.0-17.0 [facility] Comment on above: Performed By: #### VALARIE Foster URI, CBC ####[address] [place], [place] 3335883 Lab Director: Eder Herrera MD#### PTHNCA ####[address] [address] Lab Director: Jimenez Pruett MD MCH (RBC) [Entitic mass] 29.6 pg Normal 25.2-33.5 [facility] Comment on above: Performed By: #### VALARIE Foster URI, CBC ####[address] [place], [place] 3326283 Lab Director: Eder Herrera MD#### PTHNCA ####[address] [place], [place] 8546008 Lab Director: Jimenez Pruett MD MCHC (RBC) [Mass/Vol] 34.1 g/dL Normal 28.4-34.8 [facility] Comment on above: Performed By: #### VALARIE Foster URI, CBC ####[address] [place] [address])[phone] Director: Eder Herrera MD#### PTHNCA ####[address] [phone] Director: Jimenez Pruett MD MCV (RBC) [Entitic vol] 86.7 fL Normal 82.6-102.9 B on [facility] Comment on above: Performed By: #### VALARIE Foster URI, CBC ####[address] [place] [address]83[facility])[phone] Director: Eder Herrera MD#### PTHNCA ####[place], [place] [phone])[phone] Director: Jimenez Pruett MD Platelet mean volume (Bld) [Entitic vol] 12.0 fL Normal 8.1-13.5 Bon [facility] Comment on above: Performed By: #### VALARIE Foster URI, CBC ####[address] [place] 5605983 Lab Director: Eder Herrera MD#### PTHNCA ####[place], [place] [id number])[phone] Director: Jimenez Pruett MD Platelets (Bld) [#/Vol] 272 10*3/uL Normal 138-453 Bon [facility] Comment on above: Performed By: #### VALARIE Foster URI, CBC ####[address] [place] 5605952 Lab Director: Eder Herrera MD#### PTHNCA ####[address] [phone] Director: Jimenez Pruett MD RBC (Bld) [#/Vol] 4.60 10*6/uL Normal 4.21-5.77 [facility] Comment on above: Performed By: #### VALARIE Foster URI, CBC ####[address] [place], [place] 6427783 Lab Director: Eder Herrera MD#### PTHNCA ####[address] [place], [place] 1107208 Lab Director: Jimenez Pruett MD Interpretation and review of laboratory results Abnormal [facility] Nucleated RBC/100 WBC (Bld) [Ratio] 0.0 % 0.0 per 100 WBC [facility] WBC other (Bld) [#/Vol] 6.4 B on [facility] NRBC Automated 0.0 per 100 WBC Normal 0.0 [facility] Comment on above: Performed By: #### VALARIE Foster URI, CBC ####[address] [place], [place] 3661383 Lab Director: Eder Herrera MD#### PTHNCA ####[address] [place] [address] Lab Director: Jimenez Pruett MD WBC (Bld) [#/Vol] 6.4 10*3/uL Normal 3.5-11.3 [facility] Comment on above: Performed By: #### VALARIE Foster URI, CBC ####[address] [place], [place] 2817183 Lab Director: Eder Herrera MD#### PTHNCA ####[facility] [place], [place] 9651308 Lab Director: Jimenez Pruett MD Magnesiumon 05-11-2024 Magnesium [Mass/Vol] 1.8 mg/dL 1.6 - 2 .4 mg/dL [facility] Magnesium [Mass/Vol] 1.8 mg/dL Normal 1.6-2.4 [facility] Comment on above: Performed By: #### VALARIE Foster URI, CBC ####[facility] [place] [address] lab Director: Eder Herrera MD#### PTHNCA ####[facility] [address] [place], [place] 0007708 Lab Director: Jimenez Pruett MD No Panel Informationon 05-11 Interpretation and review of laboratory results Abnormal [facility] PTH, Intacton 05-11-2024 Interpretation and review of laboratory results Abnormal [facility] Parathyrin.intact [Mass/Vol] 164.0 pg/mL High 15 - 65 pg/mL [facility] PTH, Intact 164.0 pg/mL High 15-65 [facility] Comment on above: Performed By: #### VALARIE Foster URI, CBC ####[facility] [place] [address] lab Director: Eder Herrera MD#### PTHNCA ####[facility] [address] [place], [place] 7529608 lab Director: Jimenez Pruett MD Renal Function Panelon 05-11 Albumin [Mass/Vol] 4.1 g/dL 3.5 - 5.2 g/dL [facility] Anion gap [Moles/Vol] 17 mmol/L High 9 - 16 mmol/L [facility] Calcium [Mass/Vol] 8.8 mg/dL 8.6 - 10. 4 mg/dL [facility] Chloride [Moles/Vol] 89 mmol/L Low 98 - 10 7 mmol/L [facility] CO2 [Moles/Vol] 30 mmol/L 20 - 31 mmol/L [facility] Creatinine [Mass/Vol] 2.7 mg/dL High 0.70 - 1.20 mg/dL [facility] Est, Glom Filt Rate 26 Low - PINF [facility] Comment on above: These results are not [...] 216 mg/dL High 74 - 99 mg/dL [facility] Phosphate [Mass/Vol] 2.4 mg/dL Low 2.5 - 4 .5 mg/dL [facility] Potassium [Moles/Vol] 2.8 mmol/L Critically low 3.7 - 5.3 mmol/L [facility] Sodium [Moles/Vol] 136 mmol/L 136 - 145 mmol/L [facility] Urea nitrogen [Mass/Vol] 86 mg/dL High 8 - 23 mg/dL [facility] Urea nitrogen/Creatinine [Mass ratio] 32 mg/mg High 9 - 20 [facility] Albumin [Mass/Vol] 4.1 g/dL Normal 3.5-5.2 [facility] Comment on above: Performed By: #### VALARIE Foster URI, CBC ####[address] [place] 5083283 Lab Director: Eder Herrera MD#### PTHNCA ####[address] [place], [place] 0817008 Lab Director: Jimenez Pruett MD Anion gap [Moles/Vol] 17 mmol/L High 9-16 [facility] Comment on above: Performed By: #### VALARIE Foster URI, CBC ####[address] [place] 5083283 Lab Director: Eder Herrera MD#### PTHNCA ####[address] [place], [place] 2799908 Lab Director: Jimenez Pruett MD BUN/CRE Ratio 32 High 9-20 [facility] Comment on above: Performed By: #### VALARIE Foster URI, CBC ####[address] [place] [address]([facility])[phone] Director: Eder Herrera MD#### PTHNCA ####[address] [address])[phone] Director: Jimenez Pruett MD Calcium [Mass/Vol] 8.8 mg/dL Normal 8.6-10.4 [facility] Comment on above: Performed By: #### VALARIE Foster URI, CBC ####[address] [place] [address]([facility])[phone] Director: Eder Herrera MD#### PTHNCA ####[address] [address])[phone] Director: Jimenez Pruett MD Chloride [Moles/Vol] 89 mmol/L Low 98-107 [facility] Comment on above: Performed By: #### VALARIE Foster URI, CBC ####[address] [place] [address]([facility])[phone] Director: Eder Herrera MD#### PTHNCA ####[address] [address])[phone] Director: Jimenez Pruett MD CO2 [Moles/Vol] 30 mmol/L Normal 20-31 [facility] Comment on above: Performed By: #### VALARIE Foster URI, CBC ####[address] [place] [address]([facility])[phone] Director: Eder Herrera MD#### PTHNCA ####[address] [place] [address] Lab Director: Jimenez Pruett MD Creatinine [Mass/Vol] 2.7 mg/dL High 0.70-1.20 [facility] Comment on above: Performed By: #### M VALARIE Saha URI, CBC ####[address] [place], [place] 9611183 Lab Director: Eder Herrera MD#### PTHNCA ####[address] [place] [address] Lab Director: Jimenez Pruett MD GFR/1.73 sq M.predicted among non-blacks MDRD (S/P/Bld) [Vol rate/Area] 26 mL/min/{1.73_m2} Low >60 [facility] Comment on above: Result Comment: Thes [...] Performed By: #### VALARIE Foster URI, CBC ####[address] [place] [address] Lab Director: Eder Herrera MD#### PTHNCA ####[facility] [place] [address] Lab Director: Jimenez Pruett MD Glucose [Mass/Vol] 216 mg/dL High 74-99 [facility] Comment on above: Performed By: #### M VALARIE Saha URI, CBC ####[address] [place] [address] Lab Director: Eder Herrera MD#### PTHNCA ####[facility] [place], [place] [phone] Director: Jimenez Pruett MD Phosphorus, Inorg. 2.4 mg/dL Low 2.5-4.5 [facility] Comment on above: Performed By: #### M G RENP, URI, CBC ####[address] [place] [address]([facility])[phone] Director: Eder Herrera MD#### PTHNCA ####[address] [place] [address] Lab Director: Jimenez Pruett MD Potassium [Moles/Vol] 2.8 mmol/L Critically low 3.7-5.3 [facility] Comment on above: Performed By: #### M MIK SahaP URI, CBC ####[address] [place] [address]([facility])[phone] Director: Eder Herrera MD#### PTHNCA ####[address] [address])[phone] Director: Jimenez Pruett MD Sodium [Moles/Vol] 136 mmol/L Normal 136-145 [facility] Comment on above: Performed By: #### MIK FosterP URI, CBC ####[address] [place], [place] [id number] Lab Director: Eder Herrera MD#### PTHNCA ####[address] [address] Lab Director: Jimenez Pruett MD Urea nitrogen [Mass/Vol] 86 mg/dL High 8-23 [facility] Comment on above: Performed By: #### M MIK SahaP URI, CBC ####[address] [place], [place] 24[address] Lab Director: Eder Herrera MD#### PTHNCA ####[facility] [place], [place] [phone] Director: Jimenez Pruett MD Uric Acidon 05-11-2024 Urate [Mass/Vol] 13.2 mg/dL High 3.4 - 7.0 mg/dL [facility] Urate [Mass/Vol] 13.2 mg/dL High 3.4-7.0 [facility] Comment on above: Performed By: #### M G, RENP, URI, CBC ####[facility] [place] , [place] [id number] Lab Director: Eder Herrera MD#### PTHNCA ####[facility] [address] [place] [address] Lab Director: Jimenez Pruett MD PTH, Intacton 05-08-2024 PTH, Intact 166.0 pg/mL [facility] Comment on above: Performed By: #### I NPTH ####[facility] [place] [address] Lab Director: Jimenez Pruett MD#### MG, CBC, BMP, BNP, RICHAR ####[facility] [place] [address] Lab Director: Eder Herrera MD Basic Metabolic Panel 04-24 Anion gap [Moles/Vol] 15 mmol/L 9 - 16 mmol/L [facility] Calcium [Mass/Vol] 9.6 mg/dL 8.6 - 10. 4 mg/dL [facility] Chloride [Moles/Vol] 95 mmol/L Low 98 - 10 7 mmol/L [facility] CO2 [Moles/Vol] 29 mmol/L 20 - 31 mmol/L [facility] Creatinine [Mass/Vol] 2.1 mg/dL High 0.70 - 1.20 mg/dL [facility] Est, Glom Filt Rate 34 Low - PINF [facility] Comment on above: These results are not [...] 150 mg/dL High 74 - 99 mg/dL [facility] Potassium [Moles/Vol] 3.4 mmol/L Low 3.7 - 5.3 mmol/L [facility] Sodium [Moles/Vol] 139 mmol/L 136 - 145 mmol/L [facility] Urea nitrogen [Mass/Vol] 62 mg/dL High 8 - 23 mg/dL [facility] Urea nitrogen/Creatinine [Mass ratio] 30 mg/mg High 9 - 20 [facility] Basic Metabolic Profon 05-06 Anion gap [Moles/Vol] 15 mmol/L Normal -16 [facility] Comment on above: Performed By: #### I NPTH ####[place] [address] Lab Director: Jimenez Pruett MD#### MG, CBC, BMP, BNP, RICHAR ####[address] [place] [address] Lab Director: Eder Herrera MD BUN/CRE Ratio 30 High - [facility] Comment on above: Performed By: #### I NPTH ####[address] [phone] Lab Director: Jimenez Pruett MD#### MG, CBC, BMP, BNP, RICHAR ####[address] [place] 508[address]83 Lab Director: Eder Herrera MD Calcium [Mass/Vol] 9.6 mg/dL Normal 8.6-10.4 [facility] Comment on above: Performed By: #### I NPTH ####[address] [place] [address] Lab Director: Jimenez Pruett MD#### MG, CBC, BMP, BNP, RICHAR ####[address] [place], [place] 1885583 Lab Director: Eder Herrera MD Chloride [Moles/Vol] 95 mmol/L Low 98-107 [facility] Comment on above: Performed By: #### I NPTH ####[address] [place] [address] Lab Director: Jimenez Pruett MD#### MG, CBC, BMP, BNP, RICHAR ####[address] [place], [place] 0029183 Lab Director: Eder Herrera MD CO2 [Moles/Vol] 29 mmol/L Normal 20-31 [facility] Comment on above: Performed By: #### I NPTH ####[address] [address] Lab Director: Jimenez Pruett MD#### MG, CBC, BMP, BNP, RICHAR ####[address] [place], [place] 096[address]83 Lab Director: Eder Herrera MD Creatinine [Mass/Vol] 2.1 mg/dL High 0.70-1.20 [facility] Comment on above: Performed By: #### I NPTH ####[address] [phone] Lab Director: Jimenez Pruett MD#### MG, CBC, BMP, BNP, RICHAR ####[address] [place], [place] 067[address]83 Lab Director: Eder Herrera MD GFR/1.73 sq M.predicted among non-blacks MDRD (S/P/Bld) [Vol rate/Area] 34 mL/min/{1.73_m2} Low >60 [facility] Comment on above: Result Comment: Thes [...] tubular secretion. Performed By: #### I NPTH ####[address] [address] Lab Director: Jimenez Pruett MD#### MG, CBC, BMP, BNP, RICHAR ####[address] [place], [place] [address] Lab Director: Eder Herrera MD Glucose [Mass/Vol] 150 mg/dL High 74-99 [facility] Comment on above: Performed By: #### I NPTH ####[address] [address] Lab Director: Jimenez Pruett MD#### MG, CBC, BMP, BNP, RICHAR ####[address] [place], [place] 3609583 Lab Director: Eder Herrera MD Potassium [Moles/Vol] 3.4 mmol/L Low 3.7-5.3 [facility] Comment on above: Performed By: #### I NPTH ####[address] [address] Lab Director: Jimenez Pruett MD#### MG, CBC, BMP, BNP, RICHAR ####[address] [place], [place] 1786[address] Lab Director: Eder Herrera MD Sodium [Moles/Vol] 139 mmol/L Normal 136-145 [facility] Comment on above: Performed By: #### I NPTH ####[address] [address] Lab Director: Jimenez Pruett MD#### MG, CBC, BMP, BNP, RICHAR ####[address] [place] [address]5983 [facility] Director: Eder Herrera MD Urea nitrogen [Mass/Vol] 62 mg/dL High 8-23 [facility] Comment on above: Performed By: #### I NPTH ####[address] [place] [address] Lab Director: Jimenez Pruett MD#### MG, CBC, BMP, BNP, RICHAR ####[address] [place] 560[address]83 lab Director: Eder Herrera MD Brain Natri. Peptideon 05-06 Natriuretic peptide B (Bld) [Mass/Vol] 337 pg/mL High 0-125 [facility] Comment on above: Performed By: #### I NPTH ####[address] [place] [address] Lab Director: Jimenez Pruett MD#### MG, CBC, BMP, BNP, RICHAR ####[address] [place], [place] 2909983 lab Director: Eder Herrera MD Brain Natriuretic Peptideon 05-06-2024 Natriuretic peptide B (Bld) [Mass/Vol] 337 pg/mL High 0 - 125 pg/mL [facility] CBCon 05-06-2024 Erythrocyte distribution width (RBC) [Ratio] 12.5 % 11.8 - 14.4 % [facility] Hematocrit (Bld) [Volume fraction] 41.4 % 40.7 - 50.3 % [facility] Hemoglobin (Bld) [Mass/Vol] 13.6 g/dL 13.0 - 17.0 g/dL [facility] MCH (RBC) [Entitic mass] 29.4 pg 25.2 - 33.5 pg [facility] MCHC (RBC) [Mass/Vol] 32.9 g/dL 28.4 - 34.8 g/dL [facility] MCV (RBC) [Entitic vol] 89.6 fL 82.6 - 102.9 fL [facility] Nucleated RBC/100 WBC (Bld) [Ratio] 0.0 % 0.0 per 100 WBC [facility] Platelet mean volume (Bld) [Entitic vol] 11.6 fL 8.1 - 13.5 fL [facility] Platelets (Bld) [#/Vol] 283 10*3/uL [facility] RBC (Bld) [#/Vol] 4.62 10*6/uL 4.21 - 5.7 7 m/uL [facility] WBC other (Bld) [#/Vol] 7.3 B on [facility] Erythrocyte distribution width (RBC) [Ratio] 12.5 % Normal 11.8-14.4 [facility] Comment on above: Performed By: #### I NPTH ####[address] [address] Lab Director: Jimenez Pruett MD#### MG, CBC, BMP, BNP, RICHAR ####[address] [place] 5083283 Lab Director: Eder Herrera MD Hematocrit (Bld) [Volume fraction] 41.4 % Normal 40.7-50.3 [facility] Comment on above: Performed By: #### I NPTH ####[address] [address] Lab Director: Jimenez Pruett MD#### MG, CBC, BMP, BNP, RICHAR ####[address] [place] 5083283 Lab Director: Eder Herrera MD Hemoglobin (Bld) [Mass/Vol] 13.6 g/dL Normal 13.0-17.0 [facility] Comment on above: Performed By: #### I NPTH ####[address] [phone] Lab Director: Jimenez Pruett MD#### MG, CBC, BMP, BNP, RICHAR ####[address] [place] 5605983 Lab Director: Eder Herrera MD MCH (RBC) [Entitic mass] 29.4 pg Normal 25.2-33.5 [facility] Comment on above: Performed By: #### I NPTH ####[address] [address] Lab Director: Jimenez Pruett MD#### MG, CBC, BMP, BNP, RICHAR ####[address] [place] 5605983 lab Director: Eder Herrera MD MCHC (RBC) [Mass/Vol] 32.9 g/dL Normal 28.4-34.8 [facility] Comment on above: Performed By: #### I NPTH ####[place] [address] Lab Director: Jimenez Pruett MD#### MG, CBC, BMP, BNP, RICHAR ####[address] [place] [address] lab Director: Eder Herrera MD MCV (RBC) [Entitic vol] 89.6 fL Normal 82.6-102.9 [facility] Comment on above: Performed By: #### I NPTH ####[place] [address] Lab Director: Jimenez Pruett MD#### MG, CBC, BMP, BNP, RICHAR ####[address] [place] [address] lab Director: Eder Herrera MD NRBC Automated 0.0 per 100 WBC Normal 0.0 [facility] Comment on above: Performed By: #### I NPTH ####[address] [address] Lab Director: Jimenez Pruett MD#### MG, CBC, BMP, BNP, RICHAR ####[address] [place], [place] 6582683 Lab Director: Eder Herrera MD Platelet mean volume (Bld) [Entitic vol] 11.6 fL Normal 8.1-13.5 [facility] Comment on above: Performed By: #### I NPTH ####[address] [place], [place] [phone] Director: Jimenez Pruett MD#### MG, CBC, BMP, BNP, RICHAR ####[address] [place], [place] 2380483 Lab Director: Eder Herrera MD Platelets (Bld) [#/Vol] 283 10*3/uL Normal 138-453 [facility] Comment on above: Performed By: #### I NPTH ####[address] [address])[phone] Director: Jimenez Pruett MD#### MG, CBC, BMP, BNP, RICHAR ####[address] [place] 560[address]83 Lab Director: Eder Herrera MD RBC (Bld) [#/Vol] 4.62 10*6/uL Normal 4.21-5.77 [facility] Comment on above: Performed By: #### I NPTH ####[address] [phone] Director: Jimenez Pruett MD#### MG, CBC, BMP, BNP, RICHAR ####[address] [place], [place] 1715683 Lab Director: Eder Herrera MD WBC (Bld) [#/Vol] 7.3 10*3/uL Normal 3.5-11.3 [facility] Comment on above: Performed By: #### I NPTH ####[address] [place], [place] [phone] Director: Jimenez Pruett MD#### MG, CBC, BMP, BNP, RICHAR ####[facility] [place] [address] lab Director: Eder Herrera MD Magnesiumon 05-06-2024 Magnesium [Mass/Vol] 1.6 mg/dL 1.6 - 2 .4 mg/dL [facility] Magnesium [Mass/Vol] 1.6 mg/dL Normal 1.6-2.4 [facility] Comment on above: Performed By: #### I NPTH ####[facility] [address] [place] [address] Lab Director: Jimenez Pruett MD#### MG, CBC, BMP, BNP, RICHAR ####[address] [place] [address] lab Director: Eder Herrera MD No Panel Informationon 05-06 Interpretation and review of laboratory results Abnormal [facility] PTH, Intacton 05-06-2024 Calcium [Moles/Vol] 1.25 mmol/L Normal 1.13-1.33 [facility] Comment on above: Performed By: #### I NPTH ####[facility] [address] [place] [address] Lab Director: Jimenez Pruett MD#### MG, CBC, BMP, BNP, RICHAR ####[address] , [place] [phone] lab Director: Eder Herrera MD Phosphoruson 05-06-2024 Phosphate [Mass/Vol] 2.1 mg/dL Low 2.5 - 4 .5 mg/dL [facility] Phosphorus, Inorg.on 024 Phosphorus, Inorg. 2.1 mg/dL Low 2.5-4.5 [facility] Comment on above: Performed By: #### I NPTH ####[facility] [address] [place], [place] 6056708 Lab Director: Jimenez Pruett MD#### MG, CBC, BMP, BNP, RICHAR ####[facility] [place] [address] Lab Director: Eder Herrera MD Vascular duplex lower extrem ity arteries bilateralOrdered By: Saadia Donovan on 04-26-2024 Left ANTONELLA mid PSV 0.0 cm/s [facility] [employer] [employer] Work Phone: Left CUTTER OPERATOR ASBESTOS SHINGLE dist PSV 176.3 cm/s [facility] [employer] Phone: Left peroneal mid PSV 104.8 cm/s Bon [employer] Phone: Left PFA prox PSV 148.4 cm/s [facility] [employer] Phone: Left Pop A dist PSV 97.0 cm/s Bon [facility] [employer] Work Phone: Left Pop A prox PSV 101.0 cm/s [facility] [employer] Phone: Left Pop A prox karon ratio 1.38 Bon [employer] Phone: Left INSURANCE LICENSING SUPERVISOR mid PSV 116.6 cm/s [facility] [employer] Phone: Left SFA dist PSV 73.4 cm/s [facility] [employer] Phone: Left SFA dist karon ratio 0.45 B on [employer] Phone: Left SFA mid PSV 162.3 cm/s [facility] [employer] Work Phone: Left SFA mid karon ratio 0.98 Brandon n [employer] Phone: Left SFA prox PSV 165.2 cm/s [facility] [employer] Phone: Left SFA prox karon ratio 0.94 B on [employer] Phone: Right ANTONELLA mid PSV 39.8 cm/s [facility] [employer] Phone: Right CUTTER OPERATOR ASBESTOS SHINGLE dist PSV 151.6 cm/s [facility] [employer] Work Phone: Right CUTTER OPERATOR ASBESTOS SHINGLE prox PSV 94.1 cm/s [facility] [employer] Work Phone: Right peronal mid PSV 176.3 cm/s Bon [employer] Work Phone: Right Pop A dist PSV 170.2 cm/s Bon [employer] Work Phone: Right Pop A prox PSV 116.8 cm/s Bon [employer] Work Phone: Right Pop A prox karon ratio 0.86 [facility] [employer] Work Phone: Right INSURANCE LICENSING SUPERVISOR mid PSV 33.3 cm/s [facility] [employer] Work Phone: Right SFA dist PSV 135.3 cm/s Bon [facility] [employer] Work Phone: Right SFA dist karon ratio 1.39 Bon [employer] Work Phone: Right SFA mid PSV 97.0 cm/s [facility] [employer] Work Phone: Right SFA mid karon ratio 0.7 B on [employer] Phone: Right SFA prox PSV 144.4 cm/s Bon [facility] [employer] Work Phone: Right SFA prox karon ratio 1.0 Bon [employer] Work Phone: Bon [employer] Work Phone: Vascular duplex lower extrem ity [...] Artery: Patent and multiphasic (normal) Doppler waveforms. [facility] CV CPACS Vascular duplex lower extrem ity arteries bilateralon 04-25-2024 Radiology Study observation (narrative) [facility] CBCon 04-01-2024 Erythrocyte distribution width (RBC) [Ratio] 12.9 % 11.8 - 14.4 % [facility] Hematocrit (Bld) [Volume fraction] 41.9 % 40.7 - 50.3 % [facility] Hemoglobin (Bld) [Mass/Vol] 13.7 g/dL 13.0 - 17.0 g/dL [facility] MCH (RBC) [Entitic mass] 29.3 pg 25.2 - 33.5 pg [facility] MCHC (RBC) [Mass/Vol] 32.7 g/dL 28.4 - 34.8 g/dL [facility] MCV (RBC) [Entitic vol] 89.7 fL 82.6 - 102.9 fL [facility] Nucleated RBC/100 WBC (Bld) [Ratio] 0.0 % 0.0 per 100 WBC [facility] Platelet mean volume (Bld) [Entitic vol] 11.2 fL 8.1 - 13.5 fL [facility] Platelets (Bld) [#/Vol] 243 10*3/uL [facility] RBC (Bld) [#/Vol] 4.67 10*6/uL 4.21 - 5.7 7 m/uL [facility] WBC other (Bld) [#/Vol] 6.0 B on [facility] Erythrocyte distribution width (RBC) [Ratio] 12.9 % Normal 11.8-14.4 [facility] Comment on above: Performed By: #### P THNCA ####[address] [address] Lab Director: Jimenez Pruett MD#### URI, MG, RENP, CBC ####[address] [place] 5605983 [facility] Director: Eder Herrera MD Hematocrit (Bld) [Volume fraction] 41.9 % Normal 40.7-50.3 [facility] Comment on above: Performed By: #### P THNCA ####[address] [address] Lab Director: Jimenez Pruett MD#### URI, MG, RENP, CBC ####[address] [place] 560[address]83 Lab Director: Eder Herrera MD Hemoglobin (Bld) [Mass/Vol] 13.7 g/dL Normal 13.0-17.0 [facility] Comment on above: Performed By: #### P THNCA ####[address] [id number] Lab Director: Jimenez Pruett MD#### URI, MG, RENP, CBC ####[address] [place] 5605983 Lab Director: Eder Herrera MD MCH (RBC) [Entitic mass] 29.3 pg Normal 25.2-33.5 [facility] Comment on above: Performed By: #### P THNCA ####[address] [address] Lab Director: Jimenez Pruett MD#### URI, MG, RENP, CBC ####[address] [place] 7234783 lab Director: Eder Herrera MD MCHC (RBC) [Mass/Vol] 32.7 g/dL Normal 28.4-34.8 [facility] Comment on above: Performed By: #### P THNCA ####[address] [address] Lab Director: Jimenez Pruett MD#### URI, MG, RENP, CBC ####[address] [place] 560[address]83 Lab Director: Eder Herrera MD MCV (RBC) [Entitic vol] 89.7 fL Normal 82.6-102.9 [facility] Comment on above: Performed By: #### P THNCA ####[address] [address] Lab Director: Jimenez Pruett MD#### URI, MG, RENP, CBC ####[address] [place] 560[address]83 Lab Director: Eder Herrera MD NRBC Automated 0.0 per 100 WBC Normal 0.0 [facility] Comment on above: Performed By: #### P THNCA ####[address] [address] Lab Director: Jimenez Pruett MD#### URI, MG, RENP, CBC ####[address] [place], [place] 66[address] Lab Director: Eder Herrera MD Platelet mean volume (Bld) [Entitic vol] 11.2 fL Normal 8.1-13.5 [facility] Comment on above: Performed By: #### P THNCA ####[address] [place], [place] [phone] Director: Jimenez Pruett MD#### URI, MG, RENP, CBC ####[address] [place], [place] 5330383 Lab Director: Eder Herrera MD Platelets (Bld) [#/Vol] 243 10*3/uL Normal 138-453 [facility] Comment on above: Performed By: #### P THNCA ####[address] [phone] Director: Jimenez Pruett MD#### URI, MG, RENP, CBC ####[address] [place] [address] Lab Director: Eder Herrera MD RBC (Bld) [#/Vol] 4.67 10*6/uL Normal 4.21-5.77 [facility] Comment on above: Performed By: #### P THNCA ####[address] [place], [place] [phone] Director: Jimenez Pruett MD#### URI, MG, RENP, CBC ####[address] [place], [place] 6942183 Lab Director: Eder Herrera MD WBC (Bld) [#/Vol] 6.0 10*3/uL Normal 3.5-11.3 [facility] Comment on above: Performed By: #### P THNCA ####[address] [place], [place] [phone] Director: Jimenez Pruett MD#### URI, MG, RENP, CBC ####[facility] [place] [address] Lab Director: Eder Herrera MD Magnesiumon 04-01-2024 Magnesium [Mass/Vol] 1.6 mg/dL 1.6 - 2 .4 mg/dL [facility] Magnesium [Mass/Vol] 1.6 mg/dL Normal 1.6-2.4 [facility] Comment on above: Performed By: #### P THNCA ####[facility] [place], [place] 8600908 Lab Director: Jmienez Pruett MD#### URI, MG, RENP, CBC ####[facility] [place] [address] Lab Director: Eder Herrera MD No Panel Informationon 04-01 Interpretation and review of laboratory results Abnormal [facility] PTH, Intacton 04-01-2024 Interpretation and review of laboratory results Abnormal [facility] Parathyrin.intact [Mass/Vol] 206.0 pg/mL High 15 - 65 pg/mL [facility] PTH, Intact 206.0 pg/mL High 15-65 [facility] Comment on above: Performed By: #### P THNCA ####[address] [place] [address] Lab Director: Jimenez Pruett MD#### URI, MG, RENP, CBC ####[facility] [place] [address] Lab Director: Eder Herrera MD Renal Function Panelon 04-01 Albumin [Mass/Vol] 4.2 g/dL 3.5 - 5.2 g/dL [facility] Anion gap [Moles/Vol] 11 mmol/L 9 - 16 mmol/L [facility] Calcium [Mass/Vol] 11.0 mg/dL High 8.6 - 10. 4 mg/dL [facility] Chloride [Moles/Vol] 98 mmol/L 98 - 10 7 mmol/L [facility] CO2 [Moles/Vol] 27 mmol/L 20 - 31 mmol/L [facility] Creatinine [Mass/Vol] 1.6 mg/dL High 0.70 - 1.20 mg/dL [facility] Est, [place] Filt Rate 47 Low - PINF [facility] S [facility] Comment on above: These results are [...] 195 mg/dL High 74 - 99 mg/dL [facility] Phosphate [Mass/Vol] 1.8 mg/dL Low 2.5 - 4 .5 mg/dL [facility] Potassium [Moles/Vol] 3.7 mmol/L 3.7 - 5.3 mmol/L [facility] Sodium [Moles/Vol] 136 mmol/L 136 - 145 mmol/L [facility] Urea nitrogen [Mass/Vol] 36 mg/dL High 8 - 23 mg/dL [facility] Urea nitrogen/Creatinine [Mass ratio] 23 mg/mg High 9 - 20 [facility] Albumin [Mass/Vol] 4.2 g/dL Normal 3.5-5.2 [facility] Comment on above: Performed By: #### P THNCA ####[facility] [address] [place] [address] Lab Director: Jimenez Pruett MD#### GEORGINA, MG, VALARIE, CBC ####[facility] [place] [address] Lab Director: Eder Herrera MD Anion gap [Moles/Vol] 11 mmol/L Normal 9-16 [facility] Comment on above: Performed By: #### P THNCA ####[address] [address] Lab Director: Jimenez Pruett MD#### URI, MG, RENP, CBC ####[address] , [place] [id number] Lab Director: Eder Herrera MD BUN/CRE Ratio 23 High 9-20 [facility] Comment on above: Performed By: #### P THNCA ####[address] [phone] Director: Jimenez Pruett MD#### URI, MG, RENP, CBC ####[address] [place] [address] Lab Director: Eder Herrera MD Calcium [Mass/Vol] 11.0 mg/dL High 8.6-10.4 [facility] Comment on above: Performed By: #### P THNCA ####[address] [address] Lab Director: Jimenez Pruett MD#### URI, MG, RENP, CBC ####[address] [place] [address] Lab Director: Eder Herrera MD Chloride [Moles/Vol] 98 mmol/L Normal 98-107 [facility] Comment on above: Performed By: #### P THNCA ####[address] [phone] Director: Jimenez Pruett MD#### URI, MG, RENP, CBC ####[address] [place], [place] 5402083 Lab Director: Eder Herrera MD CO2 [Moles/Vol] 27 mmol/L Normal 20-31 [facility] Comment on above: Performed By: #### P THNCA ####[facility] [address] [place] [address] Lab Director: Jimenez Pruett MD#### URI, MG, RENP, CBC ####[address] [place], [place] 9406383 Lab Director: Eder Herrera MD Creatinine [Mass/Vol] 1.6 mg/dL High 0.70-1.20 [facility] Comment on above: Performed By: #### P THNCA ####[facility] [address] [place] [address] Lab Director: Jimenez Pruett MD#### URI, MG, RENP, CBC ####[address] [place], [place] 4970683 Lab Director: Eder Herrera MD GFR/1.73 sq M.predicted among non-blacks MDRD (S/P/Bld) [Vol rate/Area] 47 mL/min/{1.73_m2} Low >60 [facility] Comment on above: Result Comment: Thes [...] tubular secretion. Performed By: #### P THNCA ####[facility] [address] [place] [address] Lab Director: Jimenez Pruett MD#### URI, MG, RENP, CBC ####[address] [place], [place] 3843183 Lab Director: Eder Herrera MD Glucose [Mass/Vol] 195 mg/dL High 74-99 [facility] Comment on above: Performed By: #### P THNCA ####[address] [place] [address] Lab Director: Jimenez Pruett MD#### URI, MG, RENP, CBC ####[address] [place], [place] 4693083 Lab Director: Eder Herrera MD Phosphorus, Inorg. 1.8 mg/dL Low 2.5-4.5 [facility] Comment on above: Performed By: #### P THNCA ####[address] [address] Lab Director: Jimenez Pruett MD#### URI, MG, RENP, CBC ####[address] [place], [place] 8179883 Lab Director: Eder Herrera MD Potassium [Moles/Vol] 3.7 mmol/L Normal 3.7-5.3 [facility] Comment on above: Performed By: #### P THNCA ####[address] [address] Lab Director: Jimenez Pruett MD#### URI, MG, RENP, CBC ####[address] [place], [place] 1152583 Lab Director: Eder Herrera MD Sodium [Moles/Vol] 136 mmol/L Normal 136-145 [facility] Comment on above: Performed By: #### P THNCA ####[address] [address] Lab Director: Jimenez Pruett MD#### URI, MG, RENP, CBC ####[address] [place], [place] 3834283 Lab Director: Eder Herrera MD Urea nitrogen [Mass/Vol] 36 mg/dL High 8-23 [facility] Comment on above: Performed By: #### P THNCA ####[facility] [address] [place] [address] Lab Director: Jimenez Pruett MD#### URI, MG, RENP, CBC ####[address] [place], [place] 9742783 lab Director: Eder Herrera MD Uric Acidon 04-01-2024 Urate [Mass/Vol] 7.6 mg/dL High 3.4 - 7.0 mg/dL [facility] Urate [Mass/Vol] 7.6 mg/dL High 3.4-7.0 [facility] Comment on above: Performed By: #### P THNCA ####[facility] [place] [address] lab Director: Jimenez Pruett MD#### URI, MG, RENP, CBC ####[address] [place] [address] lab Director: Eder Herrera MD Basic Metabolic Panelon 02-23 Anion gap [Moles/Vol] 9 mmol/L 9 - 16 mmol/L [facility] Calcium [Mass/Vol] 10.5 mg/dL High 8.6 - 10. 4 mg/dL [facility] Chloride [Moles/Vol] 106 mmol/L 98 - 10 7 mmol/L [facility] CO2 [Moles/Vol] 24 mmol/L 20 - 31 mmol/L [facility] Creatinine [Mass/Vol] 1.4 mg/dL High 0.70 - 1.20 mg/dL [facility] Est, Glom Filt Rate 54 Low - PINF [facility] Comment on above: These results are not [...] 106 mg/dL High 74 - 99 mg/dL [facility] Potassium [Moles/Vol] 4.9 mmol/L 3.7 - 5.3 mmol/L [facility] Comment on above: Specimen hemolysis h as exceeded the interference as defined by Cyndi. Value may be falsely increased. Suggest recollection if clinically indicated. Sodium [Moles/Vol] 139 mmol/L 136 - 145 mmol/L [facility] Urea nitrogen [Mass/Vol] 24 mg/dL High 8 - 23 mg/dL [facility] Urea nitrogen/Creatinine [Mass ratio] 17 mg/mg 9 - [facility] Basic Metabolic Profon 03-15 Anion gap [Moles/Vol] 9 mmol/L Normal - [facility] Comment on above: Performed By: #### C BC, BMP, BNP ####[address] [place] [address] Lab Director: Eder Herrera MD BUN/CRE Ratio 17 Normal - [facility] Comment on above: Performed By: #### C BC, BMP, BNP ####[address] , [place] [id number] lab Director: Eder Herrera MD Calcium [Mass/Vol] 10.5 mg/dL High 8.6-10.4 [facility] Comment on above: Performed By: #### C BC, BMP, BNP ####[address] , [place] [id number] lab Director: Eder Herrera MD Chloride [Moles/Vol] 106 mmol/L Normal 98-107 [facility] Comment on above: Performed By: #### C BC, BMP, BNP ####[address] [place] [address] lab Director: Eder Herrera MD CO2 [Moles/Vol] 24 mmol/L Normal 20- [facility] Comment on above: Performed By: #### C BC, BMP, BNP ####[address] [place], [place] [id number] lab Director: Eder Herrera MD Creatinine [Mass/Vol] 1.4 mg/dL High 0.70-1.20 [facility] Comment on above: Performed By: #### C BC, BMP, BNP ####[address] [place], [place] [id number] lab Director: Eder Herrera MD GFR/1.73 sq M.predicted among non-blacks MDRD (S/P/Bld) [Vol rate/Area] 54 mL/min/{1.73_m2} Low >60 [facility] Comment on above: Result Comment: Thes [...] Performed By: #### C KILLIAN BMP, BNP ####[address] [place] [address] lab Director: Eder Herrera MD Glucose [Mass/Vol] 106 mg/dL High 74-99 [facility] Comment on above: Performed By: #### C BC BMP, BNP ####[address] [place], [place] [address] lab Director: Eder Herrera MD Potassium [Moles/Vol] 4.9 mmol/L Normal 3.7-5.3 [facility] Comment on above: Result Comment: Spec imen hemolysis has exceeded the interference as defined by Cyndi. Value may be falsely increased. Suggest recollection if clinically indicated. Performed By: #### C BC, BMP, BNP ####[address] [place] [address] lab Director: Eder Herrera MD Sodium [Moles/Vol] 139 mmol/L Normal 136-145 [facility] Comment on above: Performed By: #### C BC, BMP, BNP ####[facility] [place] , [place] [id number] lab Director: Eder Herrera MD Urea nitrogen [Mass/Vol] 24 mg/dL High 8-23 [facility] Comment on above: Performed By: #### C BC, BMP, BNP ####[facility] [place] , [place] [id number] lab Director: Eder Herrera MD Brain Natri. Peptideon 03-15 Natriuretic peptide B (Bld) [Mass/Vol] 422 pg/mL High 0-125 [facility] Comment on above: Performed By: #### C KILLIAN, BMP, BNP ####[address] , [place] [id number] Lab Director: Eder Herrera MD Brain Natriuretic Peptideon 03-15-2024 Natriuretic peptide B (Bld) [Mass/Vol] 422 pg/mL High 0 - 125 pg/mL [facility] CBCon 03-15-2024 Erythrocyte distribution width (RBC) [Ratio] 13.2 % 11.8 - 14.4 % [facility] Hematocrit (Bld) [Volume fraction] 41.4 % 40.7 - 50.3 % [facility] Hemoglobin (Bld) [Mass/Vol] 13.1 g/dL 13.0 - 17.0 g/dL [facility] MCH (RBC) [Entitic mass] 29.2 pg 25.2 - 33.5 pg [facility] MCHC (RBC) [Mass/Vol] 31.6 g/dL 28.4 - 34.8 g/dL [facility] MCV (RBC) [Entitic vol] 92.2 fL 82.6 - 102.9 fL [facility] Nucleated RBC/100 WBC (Bld) [Ratio] 0.0 % 0.0 per 100 WBC [facility] Platelet mean volume (Bld) [Entitic vol] 10.9 fL 8.1 - 13.5 fL [facility] Platelets (Bld) [#/Vol] 268 10*3/uL [facility] RBC (Bld) [#/Vol] 4.49 10*6/uL 4.21 - 5.7 7 m/uL [facility] WBC other (Bld) [#/Vol] 5.0 B on [facility] Erythrocyte distribution width (RBC) [Ratio] 13.2 % Normal 11.8-14.4 [facility] Comment on above: Performed By: #### C BC, BMP, BNP ####[address] [place] [address] lab Director: Eder Herrera MD Hematocrit (Bld) [Volume fraction] 41.4 % Normal 40.7-50.3 [facility] Comment on above: Performed By: #### C BC BMP, BNP ####[address] [place] [address] Lab Director: Eder Herrera MD Hemoglobin (Bld) [Mass/Vol] 13.1 g/dL Normal 13.0-17.0 [facility] Comment on above: Performed By: #### C BC, BMP, BNP ####[address] [place] [address] lab Director: Eder Herrera MD MCH (RBC) [Entitic mass] 29.2 pg Normal 25.2-33.5 [facility] Comment on above: Performed By: #### C BC, BMP, BNP ####[address] [place] [address] lab Director: Eder Herrera MD MCHC (RBC) [Mass/Vol] 31.6 g/dL Normal 28.4-34.8 [facility] Comment on above: Performed By: #### C BC, BMP, BNP ####[address] [place] [address] Lab Director: Eder Herrera MD MCV (RBC) [Entitic vol] 92.2 fL Normal 82.6-102.9 [facility] Comment on above: Performed By: #### C BC, BMP, BNP ####[address] [place] [address] Lab Director: Eder Herrera MD NRBC Automated 0.0 per 100 WBC Normal 0.0 [facility] Comment on above: Performed By: #### C BC, BMP, BNP ####[address] [place] [address] Lab Director: Eder Herrera MD Platelet mean volume (Bld) [Entitic vol] 10.9 fL Normal 8.1-13.5 [facility] Comment on above: Performed By: #### C BC, BMP, BNP ####[address] [place] [address] Lab Director: Eder Herrera MD Platelets (Bld) [#/Vol] 268 10*3/uL Normal 138-453 [facility] Comment on above: Performed By: #### C BC, BMP, BNP ####[address] [place] [address] Lab Director: Eder Herrera MD RBC (Bld) [#/Vol] 4.49 10*6/uL Normal 4.21-5.77 [facility] Comment on above: Performed By: #### C BC, BMP, BNP ####[address] [place] [address] Lab Director: Eder Herrera MD WBC (Bld) [#/Vol] 5.0 10*3/uL Normal 3.5-11.3 [facility] Comment on above: Performed By: #### C BC, BMP, BNP ####[address] [place] [address] lab Director: Eder Herrera MD No Panel Informationon 03-15 Interpretation and review of laboratory results Abnormal [facility] Bon [facility] Trice 03-08-2024 ACT 274 sec High 79-149 [facility] ACT 253 sec High 79-149 [facility] ACT 174 sec High 79-149 [facility] Glucose, Whole Bloodon 03-08 Glucose [Mass/Vol] 148 mg/dL High 74-100 [facility] Glucose [Mass/Vol] 138 mg/dL High 74-100 [facility] CBC with Auto Differentialon 02-28-2024 Basophils (Bld) [#/Vol] 0.04 10*3/uL [facility] Basophils/100 WBC (Bld) 1 % 0 - 2 % B ON [facility] Eosinophils (Bld) [#/Vol] 0.39 10*3/uL [facility] Eosinophils/100 WBC (Bld) 5 % High 1 - 4 % [facility] Erythrocyte distribution width (RBC) [Ratio] 12.3 % 11.8 - 14.4 % [facility] Hematocrit (Bld) [Volume fraction] 37.1 % Low 40.7 - 50.3 % [facility] Hemoglobin (Bld) [Mass/Vol] 12.7 g/dL Low 13.0 - 17.0 g/dL [facility] Immature granulocytes (Bld) [#/Vol] [facility] Immature granulocytes/100 WBC (Bld) 0 % 0 [facility] Interpretation and review of laboratory results Abnormal [facility] Lymphocytes/100 WBC (Bld) 32 % 24 - 43 % [facility] Lymphocytes/100 WBC (Bld) 2.31 % [facility] MCH (RBC) [Entitic mass] 29.5 pg 25.2 - 33.5 pg [facility] MCHC (RBC) [Mass/Vol] 34.2 g/dL 28.4 - 34.8 g/dL [facility] MCV (RBC) [Entitic vol] 86.3 fL 82.6 - 102.9 fL [facility] Monocytes/100 WBC (Bld) 10 % 3 - 12 % B ON [facility] Monocytes/100 WBC (Bld) 0.76 % B ON [facility] Neutrophils/100 WBC (Bld) 52 % 36 - 65 % [facility] Nucleated RBC/100 WBC (Bld) [Ratio] 0.0 % 0.0 per 100 WBC [facility] Platelet mean volume (Bld) [Entitic vol] 10.9 fL 8.1 - 13.5 fL [facility] Platelets (Bld) [#/Vol] 248 10*3/uL [facility] RBC (Bld) [#/Vol] 4.30 10*6/uL 4.21 - 5.7 7 m/uL [facility] Segmented neutrophils/100 WBC (Bld) 3.78 % [facility] WBC other (Bld) [#/Vol] 7.3 B ON [facility] CBC with Diffon 02-28-2024 Abs. Basophil 0.04 k/uL Normal 0.00-0.20 [facility] Comment on above: Performed By: #### C CHLOÉ PECK, SUSANAE ####[address] [place] [id number] Lab Director: Eder Herrera MD Abs.Imm.Granulocyte <0.03 Normal 0.00-0.30 [facility] Comment on above: Performed By: #### C CHLOÉ PECK, DIME ####[address] [place], [place] [id number] Lab Director: Eder Herrera MD Abs.Neutrophil (Seg) 3.78 k/uL Normal 1.50-8.10 [facility] Comment on above: Performed By: #### C CHLOÉ PECK, DIME ####[address] , [place] 0838283 Lab Director: Eder Herrera MD Basophils/100 WBC (Bld) 1 % Normal 0-2 [facility] Comment on above: Performed By: #### C DP CP, DIME ####[address] [place] [address] Lab Director: Eder Herrera MD Eosinophils (Bld) [#/Vol] 0.39 10*3/uL Normal 0.00-0.44 [facility] Comment on above: Performed By: #### C DP CP, DIME ####[address] , [facility]83 Lab Director: Eder Herrera MD Eosinophils/100 WBC (Bld) 5 % High 1-4 [facility] Comment on above: Performed By: #### C CISCO CP, DIME ####[address] , [facility]83 Lab Director: Eder Herrera MD Erythrocyte distribution width (RBC) [Ratio] 12.3 % Normal 11.8-14.4 [facility] Comment on above: Performed By: #### C CISCO CP, DIME ####[address] , [place] [address] Lab Director: Eder Herrera MD Hematocrit (Bld) [Volume fraction] 37.1 % Low 40.7-50.3 [facility] Comment on above: Performed By: #### C CISCO CP, DIME ####[address] , [facility]83 Lab Director: Eder Herrera MD Hemoglobin (Bld) [Mass/Vol] 12.7 g/dL Low 13.0-17.0 [facility] Comment on above: Performed By: #### C DP CP, DIME ####[address] , [place] 015[address]83 Lab Director: Eder Herrera MD Immature granulocytes/100 WBC (Bld) 0 % Normal 0 [facility] Comment on above: Performed By: #### C DP CP, DIME ####[address] , [place] [phone] Director: Eder Herrera MD Lymphocytes (Bld) [#/Vol] 2.31 10*3/uL Normal 1.10-3.70 [facility] Comment on above: Performed By: #### C CHLOÉ PECK, DIME ####[address] , [place] [phone] Director: Eder Herrera MD Lymphocytes/100 WBC (Bld) 32 % Normal 24-43 [facility] Comment on above: Performed By: #### C CHLOÉ PECK, DIME ####[address] , [place] [phone] Director: Eder Herrera MD MCH (RBC) [Entitic mass] 29.5 pg Normal 25.2-33.5 [facility] Comment on above: Performed By: #### C CHLOÉ PECK, DIME ####[address] , [place] [address])[phone] Director: Eder Herrera MD MCHC (RBC) [Mass/Vol] 34.2 g/dL Normal 28.4-34.8 [facility] Comment on above: Performed By: #### C CHLOÉ PECK, DIME ####[address] , [place] [address])[phone] Director: Eder Herrera MD MCV (RBC) [Entitic vol] 86.3 fL Normal 82.6-102.9 [facility] Comment on above: Performed By: #### C CHLOÉ PECK, DIME ####[address] [place] [address] Lab Director: Eder Herrera MD Monocytes (Bld) [#/Vol] 0.76 10*3/uL Normal 0.10-1.20 [facility] Comment on above: Performed By: #### C DP, CP, DIME ####[address] [place] [address] Lab Director: Eder Herrera MD Monocytes/100 WBC (Bld) 10 % Normal 3-12 [facility] Comment on above: Performed By: #### C DP, CP, DIME ####[address] , [place] [address])[phone] Director: Eder Herrera MD Neutrophil (Seg) 52 % Normal 36-65 [facility] Comment on above: Performed By: #### C DP CP, DIME ####[address] , [facility]83 Lab Director: Eder Herrera MD NRBC Automated 0.0 per 100 WBC Normal 0.0 [facility] Comment on above: Performed By: #### C DP CP, DIME ####[address] , [phone] Director: Eder Herrera MD Platelet mean volume (Bld) [Entitic vol] 10.9 fL Normal 8.1-13.5 [facility] Comment on above: Performed By: #### C DP CP, DIME ####[address] , [place] [address])[phone] Director: Eder Herrera MD Platelets (Bld) [#/Vol] 248 10*3/uL Normal 138-453 [facility] Comment on above: Performed By: #### C DP, CP, DIME ####[address] , [place] [phone] Director: Eder Herrera MD RBC (Bld) [#/Vol] 4.30 10*6/uL Normal 4.21-5.77 [facility] Comment on above: Performed By: #### C DP, CP, DIME ####[facility] [place] [address] lab Director: Eder Herrera MD WBC (Bld) [#/Vol] 7.3 10*3/uL Normal 3.5-11.3 [facility] Comment on above: Performed By: #### C DP, CHLOÉ, SUSANAE ####[facility] [place] [address] lab Director: Eder Herrera MD [facility] Albumin [Mass/Vol] 3.6 g/dL 3.5 - 5.2 g/dL [facility] Albumin/Globulin [Mass ratio] 1.3 {ratio} 1.0 - 2.5 [facility] ALP [Catalytic activity/Vol] 90 U/L 40 - 129 U/L [facility] ALT [Catalytic activity/Vol] 21 U/L 10 - 50 U/L [facility] Anion gap [Moles/Vol] 13 mmol/L 9 - 16 mmol/L [facility] AST [Catalytic activity/Vol] 22 U/L 10 - 50 U/L [facility] Bilirubin [Mass/Vol] 0.3 mg/dL 0.00 - 1.20 mg/dL [facility] Calcium [Mass/Vol] 9.1 mg/dL 8.6 - 10. 4 mg/dL [facility] Chloride [Moles/Vol] 99 mmol/L 98 - 10 7 mmol/L [facility] CO2 [Moles/Vol] 23 mmol/L 20 - 31 mmol/L [facility] Creatinine [Mass/Vol] 1.8 mg/dL High 0.70 - 1.20 mg/dL [facility] Est, Glom Filt Rate 41 Low - [facility] Comment on above: These results are not [...] 118 mg/dL High 74 - 99 mg/dL [facility] Interpretation and review of laboratory results Abnormal [facility] Potassium [Moles/Vol] 4.1 mmol/L 3.7 - 5.3 mmol/L [facility] Protein [Mass/Vol] 6.2 g/dL Low 6.6 - 8.7 g/dL [facility] Sodium [Moles/Vol] 135 mmol/L Low 136 - 145 mmol/L [facility] Urea nitrogen [Mass/Vol] 55 mg/dL High 8 - 23 mg/dL [facility] Urea nitrogen/Creatinine [Mass ratio] 31 mg/mg High 9 - 20 [facility] Comp Metabolic Profon 2023 Albumin [Mass/Vol] 3.6 g/dL Normal 3.5-5.2 [facility] Comment on above: Performed By: #### C CHLOÉ PECK, DIME ####[address] , [place] [id number] Lab Director: Eder Herrera MD Albumin/Glob Ratio 1.3 Normal 1.0-2.5 [facility] Comment on above: Performed By: #### C CHLOÉ PECK, DIME ####[address] , [place] 875[address]83 Lab Director: Eder Herrera MD Alkaline Phos 90 U/L Normal 40-129 [facility] Comment on above: Performed By: #### C CHLOÉ PECK, DIME ####[facility] [place] , [place] 5115183 Lab Director: Eder Herrera MD ALT [Catalytic activity/Vol] 21 U/L Normal 10-50 [facility] Comment on above: Performed By: #### C CHLOÉ PECK, DIME ####[facility] [place] , [place] 5274883 Lab Director: Eder Herrera MD Anion gap [Moles/Vol] 13 mmol/L Normal 9-16 [facility] Comment on above: Performed By: #### C CHLOÉ PECK, DIME ####[address] [place] [address] Lab Director: Eder Herrera MD AST [Catalytic activity/Vol] 22 U/L Normal 10-50 [facility] Comment on above: Performed By: #### C CHLOÉ PECK, DIME ####[address] [place] [address] Lab Director: Eder Herrera MD Bilirubin [Mass/Vol] 0.3 mg/dL Normal 0.00-1.20 [facility] Comment on above: Performed By: #### C CHLOÉ PECK, DIME ####[address] [place] [address] Lab Director: Eder Herrera MD BUN/CRE Ratio 31 High 9-20 [facility] Comment on above: Performed By: #### C CHLOÉ PECK, DIME ####[address] [place] [address] Lab Director: Eder Herrera MD Calcium [Mass/Vol] 9.1 mg/dL Normal 8.6-10.4 [facility] Comment on above: Performed By: #### C CHLOÉ PECK, DIME ####[address] [place] [address] Lab Director: Eder Herrera MD Chloride [Moles/Vol] 99 mmol/L Normal 98-107 [facility] Comment on above: Performed By: #### C CHLOÉ PECK, DIME ####[address] , [place] 1685683 Lab Director: Eder Herrera MD CO2 [Moles/Vol] 23 mmol/L Normal 20-31 [facility] Comment on above: Performed By: #### C CHLOÉ PECK, DIME ####[address] [place] [address] Lab Director: Eder Herrera MD Creatinine [Mass/Vol] 1.8 mg/dL High 0.70-1.20 [facility] Comment on above: Performed By: #### C CHLOÉ PECK, DIME ####[address] , [place] 0402983 Lab Director: Eder Hererra MD GFR/1.73 sq M.predicted among non-blacks MDRD (S/P/Bld) [Vol rate/Area] 41 mL/min/{1.73_m2} Low >60 [facility] Comment on above: Result Comment: Thes [...] Performed By: #### C CHLOÉ PECK, DIME ####[address] , [place] 057[address]83 Lab Director: Eder Herrera MD Glucose [Mass/Vol] 118 mg/dL High 74-99 [facility] Comment on above: Performed By: #### C CHLOÉ PECK, DIME ####[address] [place] [address] Lab Director: Eder Herrera MD Potassium [Moles/Vol] 4.1 mmol/L Normal 3.7-5.3 [facility] Comment on above: Performed By: #### C CHLOÉ PECK, DIME ####[address] , [place] [id number] Lab Director: Eder Herrera MD Protein [Mass/Vol] 6.2 g/dL Low 6.6-8.7 [facility] Comment on above: Performed By: #### C DP CP, DIME ####[facility] [place] [address] lab Director: Eder Herrera MD Sodium [Moles/Vol] 135 mmol/L Low 136-145 [facility] Comment on above: Performed By: #### C DP CP, DIME ####[facility] [place] [address] lab Director: Eder Herrera MD Urea nitrogen [Mass/Vol] 55 mg/dL High 8-23 [facility] Comment on above: Performed By: #### C CHLOÉ PECK, DIME ####[address] [place] [address] lab Director: Eder Herrera MD D-Dimer Teston 02-28-2024 D-Dimer Test 0.43 ug/mL FEU Normal 0.00-0.59 [facility] Comment on above: Result Comment: When [...] Performed By: #### C DP, CHLOÉ, CATHY ####[facility] [place] [address] Lab Director: Eder Herrera MD D-Dimer, Quantitativeon 10- Fibrin D-dimer FEU (PPP) [Mass/Vol] 0.43 [facility] Comment on above: When combined with [...] more prevalent in patients with distal DVT. [facility] Basic Metab w/rfx MGon 02-26 Anion gap [Moles/Vol] 11 mmol/L Normal 9-16 [facility] Comment on above: Performed By: #### B MPX, CDP ####[facility] [place] [address] lab Director: Eder Herrera MD BUN/CRE Ratio 27 High 9-20 [facility] Comment on above: Performed By: #### B MPX, CDP ####[facility], [place] [address] Lab Director: Eder Herrera MD Calcium [Mass/Vol] 8.8 mg/dL Normal 8.6-10.4 [facility] Comment on above: Performed By: #### B MPX, CDP ####[address] , [place] 4100983 Lab Director: Eder Herrera MD Chloride [Moles/Vol] 99 mmol/L Normal 98-107 [facility] Comment on above: Performed By: #### B MPX, CDP ####[address] , [place] 5595483 Lab Director: Eder Herrera MD CO2 [Moles/Vol] 25 mmol/L Normal 20-31 [facility] Comment on above: Performed By: #### B MPX, CDP ####[address] , [place] [phone] Lab Director: Eder Herrera MD Creatinine [Mass/Vol] 2.1 mg/dL High 0.70-1.20 [facility] Comment on above: Performed By: #### B MPX, CDP ####[address] , [place] 9559[address] Lab Director: Eder Herrera MD GFR/1.73 sq M.predicted among non-blacks MDRD (S/P/Bld) [Vol rate/Area] 35 mL/min/{1.73_m2} Low >60 [facility] Comment on above: Result Comment: Thes [...] secretion. Performed By: #### B MPX, CDP ####[address] [place] [address] Lab Director: Eder Herrera MD Glucose [Mass/Vol] 221 mg/dL High 74-99 [facility] Comment on above: Performed By: #### B MPX, CDP ####[facility] [place] , [place] [id number] lab Director: Eder Herrera MD Potassium [Moles/Vol] 4.0 mmol/L Normal 3.7-5.3 [facility] Comment on above: Performed By: #### B MPX, CDP ####[facility] [place] , [place] 458[address]83 lab Director: Eder Herrera MD Sodium [Moles/Vol] 135 mmol/L Low 136-145 [facility] Comment on above: Performed By: #### B MPX, CDP ####[facility] [place] , [place] [id number] lab Director: Eder Herrera MD Urea nitrogen [Mass/Vol] 57 mg/dL High 8-23 [facility] Comment on above: Performed By: #### B MPX, CDP ####[facility] [place] , [place] 16[address]83 lab Director: Eder Herrera MD Basic Metabolic Panel w/ Ref willam to MGon 02-27-2024 Anion gap [Moles/Vol] 11 mmol/L 9 - 16 mmol/L [facility] Calcium [Mass/Vol] 8.8 mg/dL 8.6 - 10. 4 mg/dL [facility] Chloride [Moles/Vol] 99 mmol/L 98 - 10 7 mmol/L [facility] CO2 [Moles/Vol] 25 mmol/L 20 - 31 mmol/L [facility] Creatinine [Mass/Vol] 2.1 mg/dL High 0.70 - 1.20 mg/dL [facility] Est, Glom Filt Rate 35 Low - [facility] Comment on above: These results are not [...] 221 mg/dL High 74 - 99 mg/dL [facility] Interpretation and review of laboratory results Abnormal [facility] Potassium [Moles/Vol] 4.0 mmol/L 3.7 - 5.3 mmol/L [facility] Sodium [Moles/Vol] 135 mmol/L Low 136 - 145 mmol/L [facility] Urea nitrogen [Mass/Vol] 57 mg/dL High 8 - 23 mg/dL [facility] Urea nitrogen/Creatinine [Mass ratio] 27 mg/mg High 9 - 20 [facility] CBC auto differentialon 10-0 Basophils (Bld) [#/Vol] 0.04 10*3/uL [facility] Basophils/100 WBC (Bld) 1 % 0 - 2 % B [facility] Eosinophils (Bld) [#/Vol] 0.20 10*3/uL [facility] Eosinophils/100 WBC (Bld) 3 % 1 - 4 % [facility] Erythrocyte distribution width (RBC) [Ratio] 12.5 % 11.8 - 14.4 % [facility] Hematocrit (Bld) [Volume fraction] 36.4 % Low 40.7 - 50.3 % [facility] Hemoglobin (Bld) [Mass/Vol] 12.0 g/dL Low 13.0 - 17.0 g/dL [facility] Immature granulocytes (Bld) [#/Vol] [facility] Immature granulocytes/100 WBC (Bld) 0 % 0 [facility] Interpretation and review of laboratory results Abnormal [facility] Lymphocytes/100 WBC (Bld) 33 % 24 - 43 % [facility] Lymphocytes/100 WBC (Bld) 2.48 % [facility] MCH (RBC) [Entitic mass] 29.1 pg 25.2 - 33.5 pg [facility] MCHC (RBC) [Mass/Vol] 33.0 g/dL 28.4 - 34.8 g/dL [facility] MCV (RBC) [Entitic vol] 88.1 fL 82.6 - 102.9 fL [facility] Monocytes/100 WBC (Bld) 11 % 3 - 12 % B ON [facility] Monocytes/100 WBC (Bld) 0.83 % B ON [facility] Neutrophils/100 WBC (Bld) 52 % 36 - 65 % [facility] Nucleated RBC/100 WBC (Bld) [Ratio] 0.0 % 0.0 per 100 WBC [facility] Platelet mean volume (Bld) [Entitic vol] 11.1 fL 8.1 - 13.5 fL [facility] Platelets (Bld) [#/Vol] 233 10*3/uL [facility] RBC (Bld) [#/Vol] 4.13 10*6/uL Low 4.21 - 5.7 7 m/uL [facility] Segmented neutrophils/100 WBC (Bld) 3.95 % [facility] WBC other (Bld) [#/Vol] 7.5 B ON [facility] CBC with Diffon 02-27-2024 Abs. Basophil 0.04 k/uL Normal 0.00-0.20 [facility] Comment on above: Performed By: #### B MPX, CDP ####[address] , [place] [id number] lab Director: Eder Herrera MD Abs.Imm.Granulocyte <0.03 Normal 0.00-0.30 [facility] Comment on above: Performed By: #### B MPX, CDP ####[address] [place] [address] lab Director: Eder Herrera MD Abs.Neutrophil (Seg) 3.95 k/uL Normal 1.50-8.10 [facility] Comment on above: Performed By: #### B MPX, CDP ####[address] , [place] [id number] Lab Director: Eder Herrera MD Basophils/100 WBC (Bld) 1 % Normal 0-2 [facility] Comment on above: Performed By: #### B MPX, CDP ####[address] , [place] [id number] lab Director: Eder Herrera MD Eosinophils (Bld) [#/Vol] 0.20 10*3/uL Normal 0.00-0.44 [facility] Comment on above: Performed By: #### B MPX, CDP ####[address] , [place] [id number] lab Director: Eder Herrera MD Eosinophils/100 WBC (Bld) 3 % Normal 1-4 [facility] Comment on above: Performed By: #### B MPX, CDP ####[address] , [place] [id number] lab Director: Eder Herrera MD Erythrocyte distribution width (RBC) [Ratio] 12.5 % Normal 11.8-14.4 [facility] Comment on above: Performed By: #### B MPX, CDP ####[address] , [place] [id number] Lab Director: Eder Herrera MD Hematocrit (Bld) [Volume fraction] 36.4 % Low 40.7-50.3 [facility] Comment on above: Performed By: #### B MPX, CDP ####[address] [place] [address] Lab Director: Eder Herrera MD Hemoglobin (Bld) [Mass/Vol] 12.0 g/dL Low 13.0-17.0 [facility] Comment on above: Performed By: #### B MPX, CDP ####[address] , [place] [id number] Lab Director: Eder Herrera MD Immature granulocytes/100 WBC (Bld) 0 % Normal 0 [facility] Comment on above: Performed By: #### B MPX, CDP ####05 [address] , [place] [id number] Lab Director: Eder Herrera MD Lymphocytes (Bld) [#/Vol] 2.48 10*3/uL Normal 1.10-3.70 [facility] Comment on above: Performed By: #### B MPX, CDP ####[address] , [place] [id number] Lab Director: Eder Herrera MD Lymphocytes/100 WBC (Bld) 33 % Normal 24-43 [facility] Comment on above: Performed By: #### B MPX, CDP ####[address] [place] [address] Lab Director: Eder Herrera MD MCH (RBC) [Entitic mass] 29.1 pg Normal 25.2-33.5 [facility] Comment on above: Performed By: #### B MPX, CDP ####[address] , [place] [id number] Lab Director: Eder Herrera MD MCHC (RBC) [Mass/Vol] 33.0 g/dL Normal 28.4-34.8 [facility] Comment on above: Performed By: #### B MPX, CDP ####[address] , [place] [id number] Lab Director: Eder Herrera MD MCV (RBC) [Entitic vol] 88.1 fL Normal 82.6-102.9 [facility] Comment on above: Performed By: #### B MPX, CDP ####[address] , [place] [id number] Lab Director: Eder Herrera MD Monocytes (Bld) [#/Vol] 0.83 10*3/uL Normal 0.10-1.20 [facility] Comment on above: Performed By: #### B MPX, CDP ####[address] , [place] 0473883 Lab Director: Eder Herrera MD Monocytes/100 WBC (Bld) 11 % Normal 3-12 [facility] Comment on above: Performed By: #### B MPX, CDP ####[address] [place] [address] Lab Director: Eder Herrera MD Neutrophil (Seg) 52 % Normal 36-65 [facility] Comment on above: Performed By: #### B MPX, CDP ####[address] , [place] [id number] Lab Director: Eder Herrera MD NRBC Automated 0.0 per 100 WBC Normal 0.0 [facility] Comment on above: Performed By: #### B MPX, CDP ####[address] , [place] [phone] Director: Eder Herrera MD Platelet mean volume (Bld) [Entitic vol] 11.1 fL Normal 8.1-13.5 [facility] Comment on above: Performed By: #### B MPX, CDP ####[address] , [place] [phone] Director: Eder Herrera MD Platelets (Bld) [#/Vol] 233 10*3/uL Normal 138-453 [facility] Comment on above: Performed By: #### B MPX, CDP ####[address] , [place] [id number] Lab Director: Eder Herrera MD RBC (Bld) [#/Vol] 4.13 10*6/uL Low 4.21-5.77 [facility] Comment on above: Performed By: #### B MPX, CDP ####[facility] [place] , [place] [id number] lab Director: Eder Herrera MD WBC (Bld) [#/Vol] 7.5 10*3/uL Normal 3.5-11.3 [facility] Comment on above: Performed By: #### B MPX, CDP ####[facility] [place] , [place] 0640683 lab Director: Eder Herrera MD Glucose, Whole Bloodon 02-26 Glucose [Mass/Vol] 223 mg/dL High 74 - 100 mg/dL [facility] Interpretation and review of laboratory results Abnormal [facility] Glucose [Mass/Vol] 223 mg/dL High 74-100 [facility] Glucose [Mass/Vol] 201 mg/dL High 74 - 100 mg/dL [facility] Interpretation and review of laboratory results Abnormal [facility] Glucose [Mass/Vol] 201 mg/dL High 74-100 [facility] Basic Metab w/rfx MGon 02-25 Anion gap [Moles/Vol] 11 mmol/L Normal 9-16 [facility] Comment on above: Performed By: #### C DP, BMPX ####[address] , [place] [phone] lab Director: Eder Herrera MD BUN/CRE Ratio 23 High 9-20 [facility] Comment on above: Performed By: #### C DP, BMPX ####[address] , [place] 3879283 lab Director: Eder Herrera MD Calcium [Mass/Vol] 9.0 mg/dL Normal 8.6-10.4 [facility] Comment on above: Performed By: #### C DP, BMPX ####[address] [place] [address] Lab Director: Eder Herrera MD Chloride [Moles/Vol] 102 mmol/L Normal 98-107 [facility] Comment on above: Performed By: #### C DP, BMPX ####[facility] [place] , [place] 1077083 Lab Director: Eder Herrera MD CO2 [Moles/Vol] 27 mmol/L Normal 20-31 [facility] Comment on above: Performed By: #### C DP, BMPX ####[facility] [place] , [place] 4665783 Lab Director: Eder Herrera MD Creatinine [Mass/Vol] 2.1 mg/dL High 0.70-1.20 [facility] Comment on above: Performed By: #### C DP, BMPX ####[facility] [place] , [place] [id number] Lab Director: Eder Herrera MD GFR/1.73 sq M.predicted among non-blacks MDRD (S/P/Bld) [Vol rate/Area] 36 mL/min/{1.73_m2} Low >60 [facility] Comment on above: Result Comment: Thes [...] secretion. Performed By: #### C DP, BMPX ####[facility] [place] [address] Lab Director: Eder Herrera MD Glucose [Mass/Vol] 189 mg/dL High 74-99 [facility] Comment on above: Performed By: #### C DP, BMPX ####[facility], [place] 9769683 Lab Director: Eder Herrera MD Potassium [Moles/Vol] 3.8 mmol/L Normal 3.7-5.3 [facility] Comment on above: Performed By: #### C DP, BMPX ####[facility] 9255183 lab Director: Eder Herrera MD Sodium [Moles/Vol] 140 mmol/L Normal 136-145 [facility] Comment on above: Performed By: #### C DP, BMPX ####[facility] 8244583 lab Director: Eder Herrera MD Urea nitrogen [Mass/Vol] 49 mg/dL High 8-23 [facility] Comment on above: Performed By: #### C DP, BMPX ####[address] , [place] 5042783 lab Director: Eder Herrera MD Basic Metabolic Panel w/ Ref willam to MGon 02-26-2024 Anion gap [Moles/Vol] 11 mmol/L 9 - 16 mmol/L [facility] Calcium [Mass/Vol] 9.0 mg/dL 8.6 - 10. 4 mg/dL [facility] Chloride [Moles/Vol] 102 mmol/L 98 - 10 7 mmol/L [facility] CO2 [Moles/Vol] 27 mmol/L 20 - 31 mmol/L [facility] Creatinine [Mass/Vol] 2.1 mg/dL High 0.70 - 1.20 mg/dL [facility] Est, Glom Filt Rate 36 Low - [facility] Comment on above: These results are not [...] 189 mg/dL High 74 - 99 mg/dL [facility] Interpretation and review of laboratory results Abnormal [facility] Potassium [Moles/Vol] 3.8 mmol/L 3.7 - 5.3 mmol/L [facility] Sodium [Moles/Vol] 140 mmol/L 136 - 145 mmol/L [facility] Urea nitrogen [Mass/Vol] 49 mg/dL High 8 - 23 mg/dL [facility] Urea nitrogen/Creatinine [Mass ratio] 23 mg/mg High 9 - 20 [facility] CBC auto differentialon 10-0 Basophils (Bld) [#/Vol] 0.03 10*3/uL [facility] Basophils/100 WBC (Bld) 0 % 0 - 2 % B [facility] Eosinophils (Bld) [#/Vol] 0.12 10*3/uL [facility] Eosinophils/100 WBC (Bld) 2 % 1 - 4 % [facility] Erythrocyte distribution width (RBC) [Ratio] 12.6 % 11.8 - 14.4 % [facility] Hematocrit (Bld) [Volume fraction] 37.5 % Low 40.7 - 50.3 % [facility] Hemoglobin (Bld) [Mass/Vol] 12.3 g/dL Low 13.0 - 17.0 g/dL [facility] Immature granulocytes (Bld) [#/Vol] [facility] Immature granulocytes/100 WBC (Bld) 0 % 0 [facility] Interpretation and review of laboratory results Abnormal [facility] Lymphocytes/100 WBC (Bld) 32 % 24 - 43 % [facility] Lymphocytes/100 WBC (Bld) 2.38 % [facility] MCH (RBC) [Entitic mass] 28.8 pg 25.2 - 33.5 pg [facility] MCHC (RBC) [Mass/Vol] 32.8 g/dL 28.4 - 34.8 g/dL [facility] MCV (RBC) [Entitic vol] 87.8 fL 82.6 - 102.9 fL [facility] Monocytes/100 WBC (Bld) 14 % High 3 - 12 % B ON [facility] Monocytes/100 WBC (Bld) 1.02 % B ON [facility] Neutrophils/100 WBC (Bld) 52 % 36 - 65 % [facility] Nucleated RBC/100 WBC (Bld) [Ratio] 0.0 % 0.0 per 100 WBC [facility] Platelet mean volume (Bld) [Entitic vol] 11.2 fL 8.1 - 13.5 fL [facility] Platelets (Bld) [#/Vol] 245 10*3/uL [facility] RBC (Bld) [#/Vol] 4.27 10*6/uL 4.21 - 5.7 7 m/uL [facility] Segmented neutrophils/100 WBC (Bld) 3.78 % [facility] WBC other (Bld) [#/Vol] 7.4 B ON [facility] CBC with Diffon 02-26-2024 Abs. Basophil 0.03 k/uL Normal 0.00-0.20 [facility] Comment on above: Performed By: #### C DP, BMPX ####[address] [place] [address] Lab Director: Eder Herrera MD Abs.Imm.Granulocyte <0.03 Normal 0.00-0.30 [facility] Comment on above: Performed By: #### C DP, BMPX ####[address] , [place] [address] Lab Director: Eder Herrera MD Abs.Neutrophil (Seg) 3.78 k/uL Normal 1.50-8.10 [facility] Comment on above: Performed By: #### C DP, BMPX ####[address] [place] 560[address]83 Lab Director: Eder Herrera MD Basophils/100 WBC (Bld) 0 % Normal 0-2 [facility] Comment on above: Performed By: #### C DP, BMPX ####[address] [place] [address] Lab Director: Eder Herrera MD Eosinophils (Bld) [#/Vol] 0.12 10*3/uL Normal 0.00-0.44 [facility] Comment on above: Performed By: #### C DP, BMPX ####[address] , [place] [address] Lab Director: Eder Herrera MD Eosinophils/100 WBC (Bld) 2 % Normal 1-4 [facility] Comment on above: Performed By: #### C DP, BMPX ####[address] , [place] [address] Lab Director: Eder Herrera MD Erythrocyte distribution width (RBC) [Ratio] 12.6 % Normal 11.8-14.4 [facility] Comment on above: Performed By: #### C DP, BMPX ####[address] , [place] [address] Lab Director: Eder Herrera MD Hematocrit (Bld) [Volume fraction] 37.5 % Low 40.7-50.3 [facility] Comment on above: Performed By: #### C DP, BMPX ####[address] , [facility]83 Lab Director: Eder Herrera MD Hemoglobin (Bld) [Mass/Vol] 12.3 g/dL Low 13.0-17.0 [facility] Comment on above: Performed By: #### C DP, BMPX ####[address] [place] [phone] Lab Director: Eder Herrera MD Immature granulocytes/100 WBC (Bld) 0 % Normal 0 [facility] Comment on above: Performed By: #### C DP, BMPX ####[address] , [facility]83 [facility] Director: Eder Herrera MD Lymphocytes (Bld) [#/Vol] 2.38 10*3/uL Normal 1.10-3.70 [facility] Comment on above: Performed By: #### C DP, BMPX ####[address] , [facility]83 Lab Director: Eder Herrera MD Lymphocytes/100 WBC (Bld) 32 % Normal 24-43 [facility] Comment on above: Performed By: #### C DP, BMPX ####[address] , [facility]83[facility])[phone] Director: Eder Herrera MD MCH (RBC) [Entitic mass] 28.8 pg Normal 25.2-33.5 [facility] Comment on above: Performed By: #### C DP, BMPX ####[address] , [facility]83[facility])[phone] Director: Eder Herrera MD MCHC (RBC) [Mass/Vol] 32.8 g/dL Normal 28.4-34.8 [facility] Comment on above: Performed By: #### C DP, BMPX ####[address] , [facility]83[facility])[phone] Director: Eder Herrera MD MCV (RBC) [Entitic vol] 87.8 fL Normal 82.6-102.9 [facility] Comment on above: Performed By: #### C DP, BMPX ####[address] , [place] 1679983 Lab Director: Eder Herrera MD Monocytes (Bld) [#/Vol] 1.02 10*3/uL Normal 0.10-1.20 [facility] Comment on above: Performed By: #### C DP, BMPX ####[address] , [place] 5724483 Lab Director: Eder Herrera MD Monocytes/100 WBC (Bld) 14 % High 3-12 [facility] Comment on above: Performed By: #### C DP, BMPX ####[address] [place] [address] Lab Director: Eder Herrera MD Neutrophil (Seg) 52 % Normal 36-65 [facility] Comment on above: Performed By: #### C DP, BMPX ####[address] [place] [address] Lab Director: Eder Herrera MD NRBC Automated 0.0 per 100 WBC Normal 0.0 [facility] Comment on above: Performed By: #### C DP, BMPX ####[address] , [place] [phone] Lab Director: Eder Herrera MD Platelet mean volume (Bld) [Entitic vol] 11.2 fL Normal 8.1-13.5 [facility] Comment on above: Performed By: #### C DP, BMPX ####[address] , [place] [phone] Director: Eder Herrera MD Platelets (Bld) [#/Vol] 245 10*3/uL Normal 138-453 [facility] Comment on above: Performed By: #### C DP, BMPX ####[address] , [place] [phone] Director: Eder Herrera MD RBC (Bld) [#/Vol] 4.27 10*6/uL Normal 4.21-5.77 [facility] Comment on above: Performed By: #### C DP, BMPX ####[address] [place] [address] Lab Director: Eder Herrera MD WBC (Bld) [#/Vol] 7.4 10*3/uL Normal 3.5-11.3 [facility] Comment on above: Performed By: #### C DP, BMPX ####[facility] [place] [address] lab Director: Eder Herrera MD Glucose, Whole Bloodon 02-25 Glucose [Mass/Vol] 245 mg/dL High 74 - 100 mg/dL [facility] Interpretation and review of laboratory results Abnormal [facility] Glucose [Mass/Vol] 245 mg/dL High 74-100 [facility] Glucose [Mass/Vol] 274 mg/dL High 74 - 100 mg/dL [facility] Interpretation and review of laboratory results Abnormal [facility] Glucose [Mass/Vol] 274 mg/dL High 74-100 [facility] Glucose [Mass/Vol] 299 mg/dL High 74 - 100 mg/dL [facility] Interpretation and review of laboratory results Abnormal [facility] Glucose [Mass/Vol] 299 mg/dL High 74-100 [facility] Glucose [Mass/Vol] 196 mg/dL High 74 - 100 mg/dL [facility] Interpretation and review of laboratory results Abnormal [facility] Glucose [Mass/Vol] 196 mg/dL High 74-100 [facility] Basic Metab w/rfx MGon 02-24 Anion gap [Moles/Vol] 11 mmol/L Normal 9-16 [facility] Comment on above: Performed By: #### C DP, BMPX, MG ####[facility] [place] [place] , [place] [phone] lab Director: Eder Herrera MD BUN/CRE Ratio 25 High 9-20 [facility] Comment on above: Performed By: #### C DP, BMPX, MG ####[facility] [place] [address] lab Director: Eder Herrera MD Calcium [Mass/Vol] 9.1 mg/dL Normal 8.6-10.4 [facility] Comment on above: Performed By: #### C DP, BMPX, MG ####[address] , [place] 3022983 lab Director: Eder Herrera MD Chloride [Moles/Vol] 103 mmol/L Normal 98-107 [facility] Comment on above: Performed By: #### C DP, BMPX, MG ####[address] , [place] 8324083 lab Director: Eder Herrera MD CO2 [Moles/Vol] 26 mmol/L Normal 20-31 [facility] Comment on above: Performed By: #### C DP, BMPX, MG ####[address] , [place] [phone] lab Director: Eder Herrera MD Creatinine [Mass/Vol] 1.7 mg/dL High 0.70-1.20 [facility] Comment on above: Performed By: #### C DP, BMPX, MG ####[address] , [place] 2305783 lab Director: Eder Herrera MD GFR/1.73 sq M.predicted among non-blacks MDRD (S/P/Bld) [Vol rate/Area] 45 mL/min/{1.73_m2} Low >60 [facility] Comment on above: Result Comment: Thes [...] Performed By: #### C DP, BMPX, MG ####[address] [place] [address] lab Director: Eder Herrera MD Glucose [Mass/Vol] 116 mg/dL High 74-99 [facility] Comment on above: Performed By: #### C DP, BMPX, MG ####[facility] [place] [address] Lab Director: Eder Herrera MD Potassium [Moles/Vol] 3.1 mmol/L Low 3.7-5.3 [facility] Comment on above: Performed By: #### C DP, BMPX, MG ####[facility] [place] [address] lab Director: Eder Herrera MD Sodium [Moles/Vol] 140 mmol/L Normal 136-145 [facility] Comment on above: Performed By: #### C DP, BMPX, MG ####[facility] [place] [address] Lab Director: Eder Herrera MD Urea nitrogen [Mass/Vol] 42 mg/dL High 8-23 [facility] Comment on above: Performed By: #### C DP, BMPX, MG ####[facility] [place] [address] lab Director: Eder Herrera MD Basic Metabolic Panel w/ Ref willam to MGon 02-25-2024 Anion gap [Moles/Vol] 11 mmol/L 9 - 16 mmol/L [facility] Calcium [Mass/Vol] 9.1 mg/dL 8.6 - 10. 4 mg/dL [facility] Chloride [Moles/Vol] 103 mmol/L 98 - 10 7 mmol/L [facility] CO2 [Moles/Vol] 26 mmol/L 20 - 31 mmol/L [facility] Creatinine [Mass/Vol] 1.7 mg/dL High 0.70 - 1.20 mg/dL [facility] Est, Glom Filt Rate 45 Low - [facility] Comment on above: These results are [...] 116 mg/dL High 74 - 99 mg/dL [facility] Interpretation and review of laboratory results Abnormal [facility] Potassium [Moles/Vol] 3.1 mmol/L Low 3.7 - 5.3 mmol/L [facility] Sodium [Moles/Vol] 140 mmol/L 136 - 145 mmol/L [facility] Urea nitrogen [Mass/Vol] 42 mg/dL High 8 - 23 mg/dL [facility] Urea nitrogen/Creatinine [Mass ratio] 25 mg/mg High 9 - 20 [facility] CBC auto differentialon 10-0 Basophils (Bld) [#/Vol] 0.05 10*3/uL [facility] Basophils/100 WBC (Bld) 1 % 0 - 2 % B ON [facility] Eosinophils (Bld) [#/Vol] 0.10 10*3/uL [facility] Eosinophils/100 WBC (Bld) 2 % 1 - 4 % [facility] Erythrocyte distribution width (RBC) [Ratio] 12.4 % 11.8 - 14.4 % [facility] Hematocrit (Bld) [Volume fraction] 37.3 % Low 40.7 - 50.3 % [facility] Hemoglobin (Bld) [Mass/Vol] 12.5 g/dL Low 13.0 - 17.0 g/dL [facility] Immature granulocytes (Bld) [#/Vol] 0.03 10*3/uL [facility] Immature granulocytes/100 WBC (Bld) 0 % 0 [facility] Interpretation and review of laboratory results Abnormal [facility] Lymphocytes/100 WBC (Bld) 37 % 24 - 43 % [facility] Lymphocytes/100 WBC (Bld) 2.50 % [facility] MCH (RBC) [Entitic mass] 29.1 pg 25.2 - 33.5 pg [facility] MCHC (RBC) [Mass/Vol] 33.5 g/dL 28.4 - 34.8 g/dL [facility] MCV (RBC) [Entitic vol] 86.7 fL 82.6 - 102.9 fL [facility] Monocytes/100 WBC (Bld) 14 % High 3 - 12 % B ON [facility] Monocytes/100 WBC (Bld) 0.92 % B ON [facility] Neutrophils/100 WBC (Bld) 47 % 36 - 65 % [facility] Nucleated RBC/100 WBC (Bld) [Ratio] 0.0 % 0.0 per 100 WBC [facility] Platelet mean volume (Bld) [Entitic vol] 10.8 fL 8.1 - 13.5 fL [facility] Platelets (Bld) [#/Vol] 257 10*3/uL [facility] RBC (Bld) [#/Vol] 4.30 10*6/uL 4.21 - 5.7 7 m/uL [facility] Segmented neutrophils/100 WBC (Bld) 3.23 % [facility] WBC other (Bld) [#/Vol] 6.8 B ON [facility] CBC with Diffon 02-25-2024 Abs. Basophil 0.05 k/uL Normal 0.00-0.20 [facility] Comment on above: Performed By: #### C DP BMPX, MG ####[address] , [facility]83 Lab Director: Eder Herrera MD Abs.Imm.Granulocyte 0.03 k/uL Normal 0.00-0.30 [facility] Comment on above: Performed By: #### C DP BMPX, MG ####[address] , [place] [id number] lab Director: Eder Herrera MD Abs.Neutrophil (Seg) 3.23 k/uL Normal 1.50-8.10 [facility] Comment on above: Performed By: #### C DP, BMPX, MG ####[address] , [place] [id number] Lab Director: Eder Herrera MD Basophils/100 WBC (Bld) 1 % Normal 0-2 [facility] Comment on above: Performed By: #### C DP, BMPX, MG ####[address] , [facility]83 Lab Director: Eder Herrera MD Eosinophils (Bld) [#/Vol] 0.10 10*3/uL Normal 0.00-0.44 [facility] Comment on above: Performed By: #### C DP, BMPX, MG ####[address] , [facility]83 Lab Director: Eder Herrera MD Eosinophils/100 WBC (Bld) 2 % Normal 1-4 [facility] Comment on above: Performed By: #### C DP, BMPX, MG ####[address] , [facility]83 Lab Director: Eder Herrera MD Erythrocyte distribution width (RBC) [Ratio] 12.4 % Normal 11.8-14.4 [facility] Comment on above: Performed By: #### C DP, BMPX, MG ####[address] , [place] [address] Lab Director: Eder Herrera MD Hematocrit (Bld) [Volume fraction] 37.3 % Low 40.7-50.3 [facility] Comment on above: Performed By: #### C DP, BMPX, MG ####[address] , [place] 0632183 Lab Director: Eder Herrera MD Hemoglobin (Bld) [Mass/Vol] 12.5 g/dL Low 13.0-17.0 [facility] Comment on above: Performed By: #### C DP, BMPX, MG ####[address] , [facility]83 Lab Director: Eder Herrera MD Immature granulocytes/100 WBC (Bld) 0 % Normal 0 [facility] Comment on above: Performed By: #### C DP, BMPX, MG ####[address] , [facility]83 lab Director: Eder Herrera MD Lymphocytes (Bld) [#/Vol] 2.50 10*3/uL Normal 1.10-3.70 [facility] Comment on above: Performed By: #### C DP, BMPX, MG ####[address] , [facility]83 lab Director: Eder Herrera MD Lymphocytes/100 WBC (Bld) 37 % Normal 24-43 [facility] Comment on above: Performed By: #### C DP, BMPX, MG ####[address] , [facility]83 lab Director: Eder Herrera MD MCH (RBC) [Entitic mass] 29.1 pg Normal 25.2-33.5 [facility] Comment on above: Performed By: #### C DP, BMPX, MG ####[address] , [facility]83 lab Director: Eder Herrera MD MCHC (RBC) [Mass/Vol] 33.5 g/dL Normal 28.4-34.8 [facility] Comment on above: Performed By: #### C DP, BMPX, MG ####[address] , [facility]83 lab Director: Eder Herrera MD MCV (RBC) [Entitic vol] 86.7 fL Normal 82.6-102.9 [facility] Comment on above: Performed By: #### C DP, BMPX, MG ####[address] [place] [address] Lab Director: Eder Herrera MD Monocytes (Bld) [#/Vol] 0.92 10*3/uL Normal 0.10-1.20 [facility] Comment on above: Performed By: #### C DP, BMPX, MG ####[address] [place] [address] Lab Director: Eder Herrera MD Monocytes/100 WBC (Bld) 14 % High 3-12 [facility] Comment on above: Performed By: #### C DP, BMPX, MG ####[address] , [place] 5074383 Lab Director: Eder Herrera MD Neutrophil (Seg) 47 % Normal 36-65 [facility] Comment on above: Performed By: #### C DP, BMPX, MG ####[address] , [place] 4014483 Lab Director: Eder Herrera MD NRBC Automated 0.0 per 100 WBC Normal 0.0 [facility] Comment on above: Performed By: #### C DP, BMPX, MG ####[address] [place] [address] Lab Director: Eder Herrera MD Platelet mean volume (Bld) [Entitic vol] 10.8 fL Normal 8.1-13.5 [facility] Comment on above: Performed By: #### C DP, BMPX, MG ####[address] , [place] 9453683 Lab Director: Eder Herrera MD Platelets (Bld) [#/Vol] 257 10*3/uL Normal 138-453 [facility] Comment on above: Performed By: #### C DP, BMPX, MG ####[address] [place] [address] Lab Director: Eder Herrera MD RBC (Bld) [#/Vol] 4.30 10*6/uL Normal 4.21-5.77 [facility] Comment on above: Performed By: #### C DP, BMPX, MG ####[facility] [place] [address] lab Director: Eder Herrera MD WBC (Bld) [#/Vol] 6.8 10*3/uL Normal 3.5-11.3 [facility] Comment on above: Performed By: #### C DP, BMPX, MG ####[facility] [place] [address] Lab Director: Eder Herrera MD Cult,Urineon 02-25-2024 Cult,Urine Specimen Description .CLEAN CATCH URINE Special Requests Site: Urine Culture NO SIGNIFICANT GROWTH Report Status FINAL 02/25/2024 Normal [facility] Comment on above: Performed By: #### U RC ####[facility] [address] [place], [place] [id number] Lab Director: Jimenez Pruett, [facility] [place] [address] , [place] [address] lab Director: Eder Herrera MD Culture, Urineon 02-25-2024 Microorganism identified Cx Nom (Unsp spec) NO SIGNIFICANT GROWTH [facility] comment (Unsp spec) [Interp] Site: Urine [facility] Specimen Description .CLEAN CATCH URINE [facility] Glucose, Whole Bloodon 02-24 Glucose [Mass/Vol] 301 mg/dL High 74 - 100 mg/dL [facility] Interpretation and review of laboratory results Abnormal [facility] Glucose [Mass/Vol] 301 mg/dL High 74-100 [facility] Glucose [Mass/Vol] 306 mg/dL High 74 - 100 mg/dL [facility] Interpretation and review of laboratory results Abnormal [facility] Glucose [Mass/Vol] 306 mg/dL High 74-100 [facility] Glucose [Mass/Vol] 190 mg/dL High 74 - 100 mg/dL [facility] Interpretation and review of laboratory results Abnormal [facility] Glucose [Mass/Vol] 190 mg/dL High 74-100 [facility] Glucose [Mass/Vol] 134 mg/dL High 74 - 100 mg/dL [facility] Interpretation and review of laboratory results Abnormal [facility] Glucose [Mass/Vol] 134 mg/dL High 74-100 [facility] Hemoglobin A1Con 02-25-2024 Glucose [Mass/Vol] 174 mg/dL [facility] Comment on above: Result Comment: The ADA and AACC recommend providing the estimated average glucose result to permit better patient understanding of their HBA1c result. Performed By: #### G LYHGB ####[id number] [id number] [place] [id number] [facility] Director: Jimenez Pruett MD HbA1c (Bld) [Mass fraction] 7.7 % High 4.0-6.0 [facility] Comment on above: Performed By: #### G LYHGB ####[facility] [address] [place] [id number] lab Director: Jimenez Pruett MD Hemoglobin A1con 02-25-2024 Average glucose Estimated from glycated hemoglobin (Bld) [Mass/Vol] 174 mg/dL [facility] Comment on above: The ADA and AACC rec ommend providing the estimated average glucose result to permit better patient understanding of their HBA1c result. HbA1c (Bld) [Mass fraction] 7.7 % High 4.0 - 6.0 % [facility] Interpretation and review of laboratory results Abnormal [facility] Magnesiumon 02-25-2024 Magnesium [Mass/Vol] 2.0 mg/dL 1.6 - 2 .4 mg/dL [facility] Magnesium [Mass/Vol] 2.0 mg/dL Normal 1.6-2.4 [facility] Comment on above: Performed By: #### C DP, BMPX, MG ####[facility] [place] , [place] [id number] Lab Director: Eder Herrera MD Brain Natri. Peptideon 02-23 Natriuretic peptide B (Bld) [Mass/Vol] 346 pg/mL High 0-125 [facility] Comment on above: Performed By: #### C P, CDP, BNP, MG ####[facility] [place] [address] lab Director: Eder Herrera MD Brain Natriuretic Peptideon 02-24-2024 Natriuretic peptide B (Bld) [Mass/Vol] 346 pg/mL High 0 - 125 pg/mL [facility] CBC with Auto Differentialon 02-24-2024 Basophils (Bld) [#/Vol] 0.05 10*3/uL [facility] Basophils/100 WBC (Bld) 1 % 0 - 2 % B [facility] Eosinophils (Bld) [#/Vol] 0.06 10*3/uL [facility] Eosinophils/100 WBC (Bld) 1 % 1 - 4 % [facility] Erythrocyte distribution width (RBC) [Ratio] 12.4 % 11.8 - 14.4 % [facility] Hematocrit (Bld) [Volume fraction] 44.1 % 40.7 - 50.3 % [facility] Hemoglobin (Bld) [Mass/Vol] 15.0 g/dL 13.0 - 17.0 g/dL [facility] Immature granulocytes (Bld) [#/Vol] 0.04 10*3/uL [facility] Immature granulocytes/100 WBC (Bld) 1 % High 0 [facility] Interpretation and review of laboratory results Abnormal [facility] Lymphocytes/100 WBC (Bld) 28 % 24 - 43 % [facility] Lymphocytes/100 WBC (Bld) 2.20 % [facility] MCH (RBC) [Entitic mass] 29.5 pg 25.2 - 33.5 pg [facility] MCHC (RBC) [Mass/Vol] 34.0 g/dL 28.4 - 34.8 g/dL [facility] MCV (RBC) [Entitic vol] 86.6 fL 82.6 - 102.9 fL [facility] Monocytes/100 WBC (Bld) 10 % 3 - 12 % B ON [facility] Monocytes/100 WBC (Bld) 0.76 % B ON [facility] Neutrophils/100 WBC (Bld) 59 % 36 - 65 % [facility] Nucleated RBC/100 WBC (Bld) [Ratio] 0.0 % 0.0 per 100 WBC [facility] Platelet mean volume (Bld) [Entitic vol] 10.9 fL 8.1 - 13.5 fL [facility] Platelets (Bld) [#/Vol] 291 10*3/uL [facility] RBC (Bld) [#/Vol] 5.09 10*6/uL 4.21 - 5.7 7 m/uL [facility] Segmented neutrophils/100 WBC (Bld) 4.69 % [facility] WBC other (Bld) [#/Vol] 7.8 B ON [facility] CBC with Diffon 02-24-2024 Abs. Basophil 0.05 k/uL Normal 0.00-0.20 [facility] Comment on above: Performed By: #### C P, CDP, BNP, MG ####[address] [place] [address] Lab Director: Eder Herrera MD Abs.Imm.Granulocyte 0.04 k/uL Normal 0.00-0.30 [facility] Comment on above: Performed By: #### C P, CDP, BNP, MG ####[address] [place] [address] Lab Director: Eder Herrera MD Abs.Neutrophil (Seg) 4.69 k/uL Normal 1.50-8.10 [facility] Comment on above: Performed By: #### C P, CDP, BNP, MG ####[address] , [place] [id number] Lab Director: Eder Herrera MD Basophils/100 WBC (Bld) 1 % Normal 0-2 [facility] Comment on above: Performed By: #### C P, CDP, BNP, MG ####[address] , [place] [id number] lab Director: Eder Herrera MD Eosinophils (Bld) [#/Vol] 0.06 10*3/uL Normal 0.00-0.44 [facility] Comment on above: Performed By: #### C P, CDP, BNP, MG ####[address] , [facility]83 lab Director: Eder Herrera MD Eosinophils/100 WBC (Bld) 1 % Normal 1-4 [facility] Comment on above: Performed By: #### C P, CDP, BNP, MG ####[address] , [facility]83 lab Director: Eder Herrera MD Erythrocyte distribution width (RBC) [Ratio] 12.4 % Normal 11.8-14.4 [facility] Comment on above: Performed By: #### C P, CDP, BNP, MG ####[address] , [facility]83 lab Director: Eder Herrera MD Hematocrit (Bld) [Volume fraction] 44.1 % Normal 40.7-50.3 [facility] Comment on above: Performed By: #### C P, CDP, BNP, MG ####[address] , [place] [id number] lab Director: Eder Herrera MD Hemoglobin (Bld) [Mass/Vol] 15.0 g/dL Normal 13.0-17.0 [facility] Comment on above: Performed By: #### C P, CDP, BNP, MG ####[address] , [place] 040[address]83 lab Director: Eder Herrera MD Immature granulocytes/100 WBC (Bld) 1 % High 0 [facility] Comment on above: Performed By: #### C P, CDP, BNP, MG ####[address] , [place] 818[address]83 lab Director: Eder Herrera MD Lymphocytes (Bld) [#/Vol] 2.20 10*3/uL Normal 1.10-3.70 [facility] Comment on above: Performed By: #### C P, CDP, BNP, MG ####[address] , [place] 590[address] lab Director: Eder Herrera MD Lymphocytes/100 WBC (Bld) 28 % Normal 24-43 [facility] Comment on above: Performed By: #### C P, CDP, BNP, MG ####[address] , [place] 3667[address] lab Director: Eder Herrera MD MCH (RBC) [Entitic mass] 29.5 pg Normal 25.2-33.5 [facility] Comment on above: Performed By: #### C P, CDP, BNP, MG ####[address] , [place] 4854383 lab Director: Eder Herrera MD MCHC (RBC) [Mass/Vol] 34.0 g/dL Normal 28.4-34.8 [facility] Comment on above: Performed By: #### C P, CDP, BNP, MG ####[address] , [place] 5569683 lab Director: Edre Herrera MD MCV (RBC) [Entitic vol] 86.6 fL Normal 82.6-102.9 [facility] Comment on above: Performed By: #### C P, CDP, BNP, MG ####[address] , [place] 409[address]83 Lab Director: Eder Herrera MD Monocytes (Bld) [#/Vol] 0.76 10*3/uL Normal 0.10-1.20 [facility] Comment on above: Performed By: #### C P, CDP, BNP, MG ####[address] , [place] 0268[address] Lab Director: Eder Herrera MD Monocytes/100 WBC (Bld) 10 % Normal 3-12 [facility] Comment on above: Performed By: #### C P, CDP, BNP, MG ####[address] , [facility]83 Lab Director: Eder Herrera MD Neutrophil (Seg) 59 % Normal 36-65 [facility] Comment on above: Performed By: #### C P, CDP, BNP, MG ####[address] , [facility]83 Lab Director: Eder Herrera MD NRBC Automated 0.0 per 100 WBC Normal 0.0 [facility] Comment on above: Performed By: #### C P, CDP, BNP, MG ####[address] , [place] 118[address] Lab Director: Eder Herrera MD Platelet mean volume (Bld) [Entitic vol] 10.9 fL Normal 8.1-13.5 [facility] Comment on above: Performed By: #### C P, CDP, BNP, MG ####[address] , [place] 027[address]83 Lab Director: Eder Herrera MD Platelets (Bld) [#/Vol] 291 10*3/uL Normal 138-453 [facility] Comment on above: Performed By: #### C P, CDP, BNP, MG ####[address] [place] [address] lab Director: Eder Herrera MD RBC (Bld) [#/Vol] 5.09 10*6/uL Normal 4.21-5.77 [facility] Comment on above: Performed By: #### C P, CDP, BNP, MG ####[facility] [place] [address] lab Director: Eder Herrera MD WBC (Bld) [#/Vol] 7.8 10*3/uL Normal 3.5-11.3 [facility] Comment on above: Performed By: #### C P, CDP, BNP, MG ####[facility] [place] [address] lab Director: Eder Herrera MD CMPon 02-24-2024 Albumin [Mass/Vol] 4.3 g/dL 3.5 - 5.2 g/dL [facility] Albumin/Globulin [Mass ratio] 1.2 {ratio} 1.0 - 2.5 [facility] ALP [Catalytic activity/Vol] 109 U/L 40 - 129 U/L [facility] ALT [Catalytic activity/Vol] 17 U/L 10 - 50 U/L [facility] Anion gap [Moles/Vol] 14 mmol/L 9 - 16 mmol/L [facility] AST [Catalytic activity/Vol] 17 U/L 10 - 50 U/L [facility] Bilirubin [Mass/Vol] 0.2 mg/dL 0.00 - 1.20 mg/dL [facility] Calcium [Mass/Vol] 9.6 mg/dL 8.6 - 10. 4 mg/dL [facility] Chloride [Moles/Vol] 97 mmol/L Low 98 - 10 7 mmol/L [facility] CO2 [Moles/Vol] 27 mmol/L 20 - 31 mmol/L [facility] Creatinine [Mass/Vol] 1.7 mg/dL High 0.70 - 1.20 mg/dL [facility] Est, Glom Filt Rate 44 Low - [facility] Comment on above: These results are not [...] 170 mg/dL High 74 - 99 mg/dL [facility] Potassium [Moles/Vol] 3.2 mmol/L Low 3.7 - 5.3 mmol/L [facility] Protein [Mass/Vol] 7.8 g/dL 6.6 - 8.7 g/dL [facility] Sodium [Moles/Vol] 138 mmol/L 136 - 145 mmol/L [facility] Urea nitrogen [Mass/Vol] 49 mg/dL High 8 - 23 mg/dL [facility] Urea nitrogen/Creatinine [Mass ratio] 29 mg/mg High 9 - 20 [facility] Comp Metabolic Profon 2023 Albumin [Mass/Vol] 4.3 g/dL Normal 3.5-5.2 [facility] Comment on above: Performed By: #### C P, CDP, BNP, MG ####[address] [place] [address] Lab Director: Eder Herrera MD Albumin/Glob Ratio 1.2 Normal 1.0-2.5 [facility] Comment on above: Performed By: #### C P, CDP, BNP, MG ####[facility] [place] [address] lab Director: Eder Herrera MD Alkaline Phos 109 U/L Normal 40-129 [facility] Comment on above: Performed By: #### C P, CDP, BNP, MG ####[facility] [place] [address] lab Director: Eder Herrera MD ALT [Catalytic activity/Vol] 17 U/L Normal 10-50 [facility] Comment on above: Performed By: #### C P, CDP, BNP, MG ####[address] , [place] 969[address]83 lab Director: Eder Herrera MD Anion gap [Moles/Vol] 14 mmol/L Normal 9-16 [facility] Comment on above: Performed By: #### C P, CDP, BNP, MG ####[address] , [facility]83 lab Director: Eder Herrera MD AST [Catalytic activity/Vol] 17 U/L Normal 10-50 [facility] Comment on above: Performed By: #### C P, CDP, BNP, MG ####[address] , [place] 958[address] lab Director: Eder Herrera MD Bilirubin [Mass/Vol] 0.2 mg/dL Normal 0.00-1.20 [facility] Comment on above: Performed By: #### C P, CDP, BNP, MG ####[address] , [place] 6772183 lab Director: Eder Herrera MD BUN/CRE Ratio 29 High 9-20 [facility] Comment on above: Performed By: #### C P, CDP, BNP, MG ####[address] , [facility]83 lab Director: Eder Herrera MD Calcium [Mass/Vol] 9.6 mg/dL Normal 8.6-10.4 [facility] Comment on above: Performed By: #### C P, CDP, BNP, MG ####[address] [place] [address] lab Director: Eder Herrera MD Chloride [Moles/Vol] 97 mmol/L Low 98-107 [facility] Comment on above: Performed By: #### C P, CDP, BNP, MG ####[address] , [place] 912[address]83 Lab Director: Eder Herrera MD CO2 [Moles/Vol] 27 mmol/L Normal 20-31 [facility] Comment on above: Performed By: #### C P, CDP, BNP, MG ####[address] [place] [address] Lab Director: Eder Herrera MD Creatinine [Mass/Vol] 1.7 mg/dL High 0.70-1.20 [facility] Comment on above: Performed By: #### C P, CDP, BNP, MG ####[address] [place] [address] Lab Director: Eder Herrera MD GFR/1.73 sq M.predicted among non-blacks MDRD (S/P/Bld) [Vol rate/Area] 44 mL/min/{1.73_m2} Low >60 [facility] Comment on above: Result Comment: Thes [...] By: #### C P, CDP, BNP, MG ####[address] , [place] [id number] lab Director: Eder Herrera MD Glucose [Mass/Vol] 170 mg/dL High 74-99 [facility] Comment on above: Performed By: #### C P, CDP, BNP, MG ####[address] , [place] [id number] lab Director: Eder Herrera MD Potassium [Moles/Vol] 3.2 mmol/L Low 3.7-5.3 [facility] Comment on above: Performed By: #### C P, CDP, BNP, MG ####[facility] [place] [address] lab Director: Eder Herrera MD Protein [Mass/Vol] 7.8 g/dL Normal 6.6-8.7 [facility] Comment on above: Performed By: #### C P, CDP, BNP, MG ####[facility] [place] [address] lab Director: Eder Herrera MD Sodium [Moles/Vol] 138 mmol/L Normal 136-145 [facility] Comment on above: Performed By: #### C P, CDP, BNP, MG ####[address] [place] [address] lab Director: Eder Herrera MD Urea nitrogen [Mass/Vol] 49 mg/dL High 8-23 [facility] Comment on above: Performed By: #### C P, CDP, BNP, MG ####[address] [place] [address] lab Director: Eder Herrera MD Glucose, Whole Bloodon 02-23 Glucose [Mass/Vol] 187 mg/dL High 74 - 100 mg/dL [facility] Interpretation and review of laboratory results Abnormal [facility] Glucose [Mass/Vol] 187 mg/dL High 74-100 [facility] Glucose [Mass/Vol] 199 mg/dL High 74 - 100 mg/dL [facility] Interpretation and review of laboratory results Abnormal [facility] Glucose [Mass/Vol] 199 mg/dL High 74-100 [facility] Magnesiumon 02-24-2024 Magnesium [Mass/Vol] 2.0 mg/dL 1.6 - 2 .4 mg/dL [facility] Magnesium [Mass/Vol] 2.0 mg/dL Normal 1.6-2.4 [facility] Comment on above: Performed By: #### C P, CDP, BNP, MG ####[facility] [place], [place] [id number] lab Director: Eder Herrera MD Microscopic Urinalysison Bacteria LM Ql (Urine sed) TRACE Abnormal None [facility] Epithelial cells LM.HPF (Urine sed) [#/Area] 0 TO 2 [facility] RBC LM.HPF (Urine sed) [#/Area] 0 TO 2 [facility] WBC LM.HPF (Urine sed) [#/Area] 0 TO 2 [facility] No Panel Informationon 02-23 Right tib [...] changes as above. No acute osseous abnormality. [facility] RIS CONSOLIDATED EXAMINATION: 3 XRAY VIEWS [...] phalanx 2nd digit. Boehler's angle is maintained. [facility] RIS CONSOLIDATED Ravinder Corona MD - [...] changes as above. No acute osseous abnormality. [facility] Interpretation and review of laboratory results Abnormal [facility] Interpretation and review of laboratory results Abnormal [facility] No Panel InformationOrdered By: Ravinder Corona on 02-24-2024 [facility] Work Phone: UA w/Reflex Cultureon 2023 Bilirubin, SemiQt,Ur Negative Normal NEG [facility] Comment on above: Performed By: #### U MICAO, UAX ####[facility] [place] [address] Lab Director: Eder Herrera MD Blood, Urine Negative Normal NEG [facility] Comment on above: Performed By: #### U MICAO, UAX ####[facility] [place] [address] Lab Director: Eder Herrera MD Clarity (U) Clear Normal CLEAR [facility] Comment on above: Performed By: #### U MICAO, UAX ####[facility] [place] [address] Lab Director: Eder Herrera MD Color (U) Yellow Normal YEL [facility] Comment on above: Performed By: #### U MICAO, UAX ####[address] , [place] 449[address] Lab Director: Eder Herrera MD Glucose Ql (U) 3+ mg/dL Abnormal NEG [facility] Comment on above: Performed By: #### U MICAO, UAX ####[address] [place] [address] Lab Director: Eder Herrera MD Ketones Ql (U) Negative Normal NEG [facility] Comment on above: Performed By: #### U MICAO, UAX ####[address] , [place] 548[address] Lab Director: Eder Herrera MD Leukocyte esterase Test strip Ql (U) Negative Normal NEG [facility] Comment on above: Performed By: #### U MICAO, UAX ####[address] [place] [address] Lab Director: Eder Herrera MD Nitrite,Ur Negative Normal NEG [facility] Comment on above: Performed By: #### U MICAO, UAX ####[address] [place] [address] Lab Director: Eder Herrera MD PH,Ur 6.0 Normal 5.0-9.0 [facility] Comment on above: Performed By: #### U MICAO, UAX ####[address] [place] [address] Lab Director: Eder Herrera MD Protein Ql (U) Negative Normal NEG [facility] Comment on above: Performed By: #### U MICAO, UAX ####[address] [place] [address] Lab Director: Eder Herrera MD Spec. [place],Ur <1.005 Low 1.010-1.020 [facility] Comment on above: Performed By: #### U SHAWN, UAX ####[facility] [place] [address] lab Director: Eder Herrera MD Urobilinogen,Ur Normal Normal 0.0-1.0 [facility] Comment on above: Performed By: #### U SHAWN, UAX ####[facility] [place] [address] lab Director: Eder Herrera MD Urinalysis with Reflex to Cu ltureon 02-24-2024 Bilirubin Ql (U) Negative NEGATIVE [facility] Clarity (U) Clear Clear [facility] Color (U) Yellow Yellow [facility] Glucose Test strip (U) [Mass/Vol] 3+ Abnormal NEGATIVE mg/dL [facility] Hemoglobin Auto test strip Ql (U) Negative NEGATIVE [facility] Ketones (U) [Mass/Vol] Negative NEGAT [facility] mg/dL [facility] Leukocyte esterase Test strip Ql (U) Negative NEGATIVE [facility] Nitrite Ql (U) Negative NEGATIVE [facility] pH (U) 6.0 [pH] 5.0 - 9.0 [facility] Protein (U) [Mass/Vol] Negative NEGAT [facility] mg/dL [facility] Specific gravity (U) [Rel density] Low 1.010 - 1.020 [facility] Urobilinogen Qn (U) Normal 0.0 - 1. 0 EU/dL [facility] Urinalysis,Microon 4 Bacteria TRACE Abnormal NONE [facility] Comment on above: Performed By: #### U SHAWN UAX ####[facility] [place] [address] lab Director: Eder Herrera MD Epithelial cells LM Ql (Urine sed) 0 TO 2 Normal 0-5 [facility] Comment on above: Performed By: #### U SHAWN UAX ####[facility] [place] , [place] [id number] lab Director: Eder Herrera MD Urine RBC's 0 TO 2 Normal 0-2 [facility] Comment on above: Performed By: #### U MICAO, UAX ####[facility] [place] , [place] [address] lab Director: Eder Herrera MD Urine WBC's 0 TO 2 Normal 0-5 [facility] Comment on above: Performed By: #### U MICAO, UAX ####[facility] [place] [address] lab Director: Eder Herrera MD XR FOOT LEFT (MIN 3 VIEWS)on 02-24-2024 XR FOOT LEFT (MIN 3 VIEWS) [facility] XR FOOT RIGHT (MIN 3 VIEWS)o n 02-24-2024 XR FOOT RIGHT (MIN 3 VIEWS) Normal [facility] XR Foot - left 3 [facility] Study observation (narrative) [facility] XR Foot - right 3 [facility] Study observation (narrative) [facility] XR TIBIA FIBULA LEFT (2 VIEW S)on 02-24-2024 XR TIBIA FIBULA LEFT (2 VIEWS) [facility] XR TIBIA FIBULA RIGHT (2 VIE WS)on 02-24-2024 XR TIBIA FIBULA RIGHT (2 VIEWS) [facility] XR Tibia and Fibula - left 2 [facility] 02-24-2024 Radiology Study observation (narrative) [facility] XR Tibia and Fibula - right 2 [facility] 02-24-2024 Radiology Study observation (narrative) [facility] Basic Metabolic Panelon 09- Anion gap [Moles/Vol] 13 mmol/L 9 - 16 mmol/L [facility] Calcium [Mass/Vol] 8.9 mg/dL 8.6 - 10. 4 mg/dL [facility] Chloride [Moles/Vol] 101 mmol/L 98 - 10 7 mmol/L [facility] CO2 [Moles/Vol] 25 mmol/L 20 - 31 mmol/L [facility] Creatinine [Mass/Vol] 1.6 mg/dL High 0.70 - 1.20 mg/dL [facility] Yuliet [place] Rate 49 Low - [facility] Comment on above: These results are not [...] 220 mg/dL High 74 - 99 mg/dL [facility] Potassium [Moles/Vol] 4.4 mmol/L 3.7 - 5.3 mmol/L [facility] Sodium [Moles/Vol] 139 mmol/L 136 - 145 mmol/L [facility] Urea nitrogen [Mass/Vol] 33 mg/dL High 8 - 23 mg/dL [facility] Urea nitrogen/Creatinine [Mass ratio] 21 mg/mg High 9 - 20 [facility] Basic Metabolic Profon 02-08 Anion gap [Moles/Vol] 13 mmol/L Normal -16 [facility] Comment on above: Performed By: #### B MP, CDP, CRP ####[facility] [place], [place] 8[address]83 Lab Director: Edre Herrera MD#### GLYHGB ####[facility] [address] [place], [place] 5215808 Lab Director: Jimenez Pruett MD BUN/CRE Ratio 21 High - [facility] Comment on above: Performed By: #### B MP, CDP, CRP ####[facility] [place], [place] 3972883 Lab Director: Eder Herrera MD#### GLYHGB ####[facility] [address] [place] [address] Lab Director: Jimenez Pruett MD Calcium [Mass/Vol] 8.9 mg/dL Normal 8.6-10.4 [facility] Comment on above: Performed By: #### B MP, CDP, CRP ####[address] [place] [address] Lab Director: Eder Herrera MD#### GLYHGB ####[address] [place], [place] [phone] Director: Jimenez Pruett MD Chloride [Moles/Vol] 101 mmol/L Normal 98-107 [facility] Comment on above: Performed By: #### B MP, CDP, CRP ####[address] [place], [place] [address]134883 Lab Director: Eder Herrera MD#### GLYHGB ####[address] [phone] Director: Jimenez Pruett MD CO2 [Moles/Vol] 25 mmol/L Normal 20-31 [facility] Comment on above: Performed By: #### B MP, CDP, CRP ####[address] [place] [address] Lab Director: Eder Herrera MD#### GLYHGB ####[address] [address] Lab Director: Jimenez Pruett MD Creatinine [Mass/Vol] 1.6 mg/dL High 0.70-1.20 [facility] Comment on above: Performed By: #### B MP, CDP, CRP ####[address] [place], [place] [phone] Director: Eder Herrera MD#### GLYHGB ####[facility] [place] [address] Lab Director: Jimenez Pruett MD GFR/1.73 sq M.predicted among non-blacks MDRD (S/P/Bld) [Vol rate/Area] 49 mL/min/{1.73_m2} Low >60 [facility] Comment on above: Result Comment: Thes [...] Performed By: #### B MEHUL CDP, CRP ####[address] [place] [address] Lab Director: Eder Herrera MD#### GLYHGB ####[address] [id number] Lab Director: Jimenez Pruett MD Glucose [Mass/Vol] 220 mg/dL High 74-99 [facility] Comment on above: Performed By: #### B MEHUL CDP, CRP ####[address] [place] [address] Lab Director: Eder Herrera MD#### GLYHGB ####[address] [id number] Lab Director: Jimenez Pruett MD Potassium [Moles/Vol] 4.4 mmol/L Normal 3.7-5.3 [facility] Comment on above: Performed By: #### B MEHUL CDP, CRP ####[address] [place] [address] Lab Director: Eder Herrera MD#### GLYHGB ####[address] [place] [address] Lab Director: Jimenez Pruett MD Sodium [Moles/Vol] 139 mmol/L Normal 136-145 [facility] Comment on above: Performed By: #### B MP, CDP, CRP ####[facility] [place] , [place] 05[address]83 Lab Director: Eder Herrera MD#### GLYHGB ####[facility] [address] [place], [place] 1729708 Lab Director: Jimenez Pruett MD Urea nitrogen [Mass/Vol] 33 mg/dL High 8-23 [facility] Comment on above: Performed By: #### B MP, CDP, CRP ####[address] [place], [place] 649[address]83 Lab Director: Eder Herrera MD#### GLYHGB ####[address] [place], [place] 05024[address] Lab Director: Jimenez Pruett MD C-Reactive Proteinon 024 CRP High sensitivity method [Mass/Vol] 7.4 mg/L High 0.0 - 5.0 mg/L [facility] CRP [Mass/Vol] 7.4 mg/L High 0.0-5.0 [facility] Comment on above: Performed By: #### B MP, CDP, CRP ####[address] [place], [place] 43[address]83 Lab Director: Eder Herrera MD#### GLYHGB ####[facility] [address] [place] [address] Lab Director: Jimenez Pruett MD CBC with Auto Differentialon 02-09-2024 Basophils (Bld) [#/Vol] 0.03 10*3/uL [facility] Basophils/100 WBC (Bld) 1 % 0 - 2 % [facility] Eosinophils (Bld) [#/Vol] 0.07 10*3/uL [facility] Eosinophils/100 WBC (Bld) 1 % 1 - 4 % [facility] Erythrocyte distribution width (RBC) [Ratio] 12.5 % 11.8 - 14.4 % [facility] Hematocrit (Bld) [Volume fraction] 40.5 % Low 40.7 - 50.3 % [facility] Hemoglobin (Bld) [Mass/Vol] 13.2 g/dL 13.0 - 17.0 g/dL [facility] Immature granulocytes (Bld) [#/Vol] [facility] Immature granulocytes/100 WBC (Bld) 0 % 0 [facility] Interpretation and review of laboratory results Abnormal [facility] Lymphocytes/100 WBC (Bld) 27 % 24 - 43 % [facility] Lymphocytes/100 WBC (Bld) 1.64 % [facility] MCH (RBC) [Entitic mass] 29.2 pg 25.2 - 33.5 pg [facility] MCHC (RBC) [Mass/Vol] 32.6 g/dL 28.4 - 34.8 g/dL [facility] MCV (RBC) [Entitic vol] 89.6 fL 82.6 - 102.9 fL [facility] Monocytes/100 WBC (Bld) 11 % 3 - 12 % [facility] [facility] Monocytes/100 WBC (Bld) 0.64 % B ON [facility] Neutrophils/100 WBC (Bld) 60 % 36 - 65 % [facility] Nucleated RBC/100 WBC (Bld) [Ratio] 0.0 % 0.0 per 100 WBC [facility] Platelet mean volume (Bld) [Entitic vol] 11.2 fL 8.1 - 13.5 fL [facility] Platelets (Bld) [#/Vol] 259 10*3/uL [facility] RBC (Bld) [#/Vol] 4.52 10*6/uL 4.21 - 5.7 7 m/uL [facility] Segmented neutrophils/100 WBC (Bld) 3.61 % [facility] WBC other (Bld) [#/Vol] 6.0 B ON [facility] CBC with Diffon 02-09-2024 Abs. Basophil 0.03 k/uL Normal 0.00-0.20 [facility] Comment on above: Performed By: #### B MP, CDP, CRP ####[address] [place] [id number] Lab Director: Eder Herrera MD#### GLYHGB ####[address] [phone] Director: Jimenez Pruett MD Abs.Imm.Granulocyte <0.03 Normal 0.00-0.30 [facility] Comment on above: Performed By: #### B MP, CDP, CRP ####[address] [place], [place] [address])[phone] Director: Eder Herrera MD#### GLYHGB ####[address] [phone] Director: Jimenez Pruett MD Abs.Neutrophil (Seg) 3.61 k/uL Normal 1.50-8.10 [facility] Comment on above: Performed By: #### B MP, CDP, CRP ####[address] [place], [place] [address])[phone] Director: Eder Herrera MD#### GLYHGB ####[address] [phone] Director: Jimenez Pruett MD Basophils/100 WBC (Bld) 1 % Normal 0-2 [facility] Comment on above: Performed By: #### B MP, CDP, CRP ####[address] [place] [address] Lab Director: Eder Herrera MD#### GLYHGB ####[address] [phone] Director: Jimenez Pruett MD Eosinophils (Bld) [#/Vol] 0.07 10*3/uL Normal 0.00-0.44 [facility] Comment on above: Performed By: #### B MP, CDP, CRP ####[facility] [place] , [place] [id number] Lab Director: Eder Herrera MD#### GLYHGB ####[address] [place], [place] [phone] Lab Director: Jimenez Pruett MD Eosinophils/100 WBC (Bld) 1 % Normal 1-4 [facility] Comment on above: Performed By: #### B MP, CDP, CRP ####[facility] [place] , [place] [id number] Lab Director: Eder Herrera MD#### GLYHGB ####[address] [address] Lab Director: Jimenez Pruett MD Erythrocyte distribution width (RBC) [Ratio] 12.5 % Normal 11.8-14.4 [facility] Comment on above: Performed By: #### B MP, CDP, CRP ####[facility] [place] [address] Lab Director: Eder Herrera MD#### GLYHGB ####[address] [address] Lab Director: Jimenez Pruett MD Hematocrit (Bld) [Volume fraction] 40.5 % Low 40.7-50.3 [facility] Comment on above: Performed By: #### B MP, CDP, CRP ####[address] , [place] 6643883 Lab Director: Eder Herrera MD#### GLYHGB ####[address] [place] [address] Lab Director: Jimenez Pruett MD Hemoglobin (Bld) [Mass/Vol] 13.2 g/dL Normal 13.0-17.0 [facility] Comment on above: Performed By: #### B MP, CDP, CRP ####[address] , [place] [phone] Director: Eder Herrera MD#### GLYHGB ####[address] [place], [place] [phone] Director: Jimenez Pruett MD Immature granulocytes/100 WBC (Bld) 0 % Normal 0 [facility] Comment on above: Performed By: #### B MP, CDP, CRP ####[address] [place], [place] [phone] Director: Eder Herrera MD#### GLYHGB ####[address] [place], [place] [phone] Director: Jimenez Pruett MD Lymphocytes (Bld) [#/Vol] 1.64 10*3/uL Normal 1.10-3.70 [facility] Comment on above: Performed By: #### B MP, CDP, CRP ####[address] , [place] [phone] Director: Eder Herrera MD#### GLYHGB ####[address] [phone] Director: Jimenez Pruett MD Lymphocytes/100 WBC (Bld) 27 % Normal 24-43 [facility] Comment on above: Performed By: #### B MP, CDP, CRP ####[address] [place] [phone] Director: Eder Herrera MD#### GLYHGB ####[address] [place], [place] [phone] Director: Jimenez Pruett MD MCH (RBC) [Entitic mass] 29.2 pg Normal 25.2-33.5 [facility] Comment on above: Performed By: #### B MP, CDP, CRP ####[address] [place] [address] Lab Director: Eder Herrera MD#### GLYHGB ####[address] [place], [place] [phone] Director: Jimenez Pruett MD MCHC (RBC) [Mass/Vol] 32.6 g/dL Normal 28.4-34.8 [facility] Comment on above: Performed By: #### B MP, CDP, CRP ####[address] [place], [place] [phone] Lab Director: Eder Herrera MD#### GLYHGB ####[address] [address] Lab Director: Jimenez Pruett MD MCV (RBC) [Entitic vol] 89.6 fL Normal 82.6-102.9 [facility] Comment on above: Performed By: #### B MP, CDP, CRP ####[address] [place], [place] 9638783 Lab Director: Eder Herrera MD#### GLYHGB ####[address] [phone] Director: Jimenez Pruett MD Monocytes (Bld) [#/Vol] 0.64 10*3/uL Normal 0.10-1.20 [facility] Comment on above: Performed By: #### B MP, CDP, CRP ####[address] [place], [place] 8423083 Lab Director: Eder Herrera MD#### GLYHGB ####[address] [place] [address] Lab Director: Jimenez Pruett MD Monocytes/100 WBC (Bld) 11 % Normal 3-12 [facility] Comment on above: Performed By: #### B MP, CDP, CRP ####[address] , [place] [phone] Lab Director: Eder Herrera MD#### GLYHGB ####[address] [place] [address] Lab Director: Jimenez Pruett MD Neutrophil (Seg) 60 % Normal 36-65 [facility] Comment on above: Performed By: #### B MP, CDP, CRP ####[address] [place] [address] Lab Director: Eder Herrera MD#### GLYHGB ####[address] [address] Lab Director: Jimenez Pruett MD NRBC Automated 0.0 per 100 WBC Normal 0.0 [facility] Comment on above: Performed By: #### B MP, CDP, CRP ####[address] [place] [address] Lab Director: Eder Herrera MD#### GLYHGB ####[address] [address] Lab Director: Jimenez Pruett MD Platelet mean volume (Bld) [Entitic vol] 11.2 fL Normal 8.1-13.5 [facility] Comment on above: Performed By: #### B MP, CDP, CRP ####[address] , [place] 5614383 Lab Director: Eder Herrera MD#### GLYHGB ####[address] [address] Lab Director: Jimenez Pruett MD Platelets (Bld) [#/Vol] 259 10*3/uL Normal 138-453 [facility] Comment on above: Performed By: #### B MP, CDP, CRP ####[address] , [place] 2689483 Lab Director: Eder Herrera MD#### GLYHGB ####[address] [place] [address] Lab Director: Jimenez Pruett MD RBC (Bld) [#/Vol] 4.52 10*6/uL Normal 4.21-5.77 [facility] Comment on above: Performed By: #### B MP, CDP, CRP ####[address] , [place] 1992183 Lab Director: Eder Herrera MD#### GLYHGB ####[address] [place] [address] Lab Director: Jimenez Pruett MD WBC (Bld) [#/Vol] 6.0 10*3/uL Normal 3.5-11.3 [facility] Comment on above: Performed By: #### B MEHUL, CDP, CRP ####[address] , [place] [id number] Lab Director: Eder Herrera MD#### GLYHGB ####[address] [place] [address] Lab Director: Jimenez Pruett MD Hemoglobin A1Con 02-09-2024 Average glucose Estimated from glycated hemoglobin (Bld) [Mass/Vol] 166 mg/dL [facility] Comment on above: The ADA and AACC rec ommend providing the estimated average glucose result to permit better patient understanding of their HBA1c result. HbA1c (Bld) [Mass fraction] 7.4 % High 4.0 - 6.0 % [facility] Interpretation and review of laboratory results Abnormal [facility] Glucose [Mass/Vol] 166 mg/dL Normal [facility] Comment on above: Result Comment: The ADA and AACC recommend providing the estimated average glucose result to permit better patient understanding of their HBA1c result. Performed By: #### B MP, CDP, CRP ####[facility] [place], [place] [address] Lab Director: Eder Herrera MD#### GLYHGB ####[facility] [address] [place], [place] [phone] Lab Director: Jimenez Pruett MD HbA1c (Bld) [Mass fraction] 7.4 % High 4.0-6.0 [facility] Comment on above: Performed By: #### B MP, CDP, CRP ####[facility] [place], [place] [phone] lab Director: Eder Herrera MD#### GLYHGB ####[facility] [address] [place], [place] 29[address] lab Director: Jimenez Pruett MD No Panel Informationon 02-08 Interpretation and review of laboratory results Abnormal [facility] Basic Metabolic Panelon 07-2 Anion gap [Moles/Vol] 9 mmol/L 9 - 17 mmol/L [facility] Calcium [Mass/Vol] 9.5 mg/dL 8.6 - 10. 4 mg/dL [facility] Chloride [Moles/Vol] 109 mmol/L High 98 - 10 7 mmol/L [facility] CO2 [Moles/Vol] 22 mmol/L 20 - 31 mmol/L [facility] Creatinine [Mass/Vol] 1.6 mg/dL High 0.7 - 1.2 mg/dL [facility] Est, Glom Filt Rate 48 Low - [facility] Comment on above: These results are not [...] 111 mg/dL High 70 - 99 mg/dL [facility] Interpretation and review of laboratory results Abnormal [facility] Potassium [Moles/Vol] 4.1 mmol/L 3.7 - 5.3 mmol/L [facility] Sodium [Moles/Vol] 140 mmol/L 135 - 144 mmol/L [facility] Urea nitrogen [Mass/Vol] 30 mg/dL High 8 - 23 mg/dL [facility] Basic Metabolic Profon 12-20 Anion gap [Moles/Vol] 9 mmol/L Normal 9-17 [facility] Comment on above: Performed By: #### B MP #### [place] [address] Marker Hand: Emiliano Hurtado MD Calcium [Mass/Vol] 9.5 mg/dL Normal 8.6-10.4 [facility] Comment on above: Performed By: #### B MP #### [place] [address] Marker Hand: Emiliano Hurtado MD Chloride [Moles/Vol] 109 mmol/L High 98-107 [facility] Comment on above: Performed By: #### B MP #### [place] [address] Marker Hand: Emiliano Hurtado MD CO2 [Moles/Vol] 22 mmol/L Normal 20-31 [facility] Comment on above: Performed By: #### B MP #### [place] [phone] Marker Hand: Emiliano Hurtado MD Creatinine [Mass/Vol] 1.6 mg/dL High 0.7-1.2 [facility] Comment on above: Performed By: #### B MP #### [place] [phone] Marker Hand: Emiliano Hurtado MD GFR/1.73 sq M.predicted among non-blacks MDRD (S/P/Bld) [Vol rate/Area] 48 mL/min/{1.73_m2} Low >60 [facility] Comment on above: Result Comment: These [...] secretion. Performed By: #### B MP #### [place] [address] Marker Hand: Emiliano Hurtado MD Glucose [Mass/Vol] 111 mg/dL High 70-99 [facility] Comment on above: Performed By: #### B MP #### [place] [address] Marker Hand: Emiliano Hurtado MD Potassium [Moles/Vol] 4.1 mmol/L Normal 3.7-5.3 [facility] Comment on above: Performed By: #### B MP #### [place] [address] Marker Hand: Emiliano Hurtado MD Sodium [Moles/Vol] 140 mmol/L Normal 135-144 [facility] Comment on above: Performed By: #### B MP #### [place] [address] Marker Hand: Emiliano Hurtado MD Urea nitrogen [Mass/Vol] 30 mg/dL High 8-23 [facility] Comment on above: Performed By: #### B MP #### [address] [address] [place] [address] Marker Hand: Emiliano Hurtado MD Basic Metabolic Panelon 10-23 Anion gap [Moles/Vol] 10 mmol/L 9 - 17 mmol/L [facility] Calcium [Mass/Vol] 10.1 mg/dL 8.6 - 10. 4 mg/dL [facility] Chloride [Moles/Vol] 99 mmol/L 98 - 10 7 mmol/L [facility] CO2 [Moles/Vol] 28 mmol/L 20 - 31 mmol/L [facility] Creatinine [Mass/Vol] 1.6 mg/dL High 0.7 - 1.2 mg/dL [facility] EstYuliett Rate 48 Low - [facility] Comment on above: These results are not [...] 132 mg/dL High 70 - 99 mg/dL [facility] Potassium [Moles/Vol] 4.7 mmol/L 3.7 - 5.3 mmol/L [facility] Sodium [Moles/Vol] 137 mmol/L 135 - 144 mmol/L [facility] Urea nitrogen [Mass/Vol] 29 mg/dL High 8 - 23 mg/dL [facility] Urea nitrogen/Creatinine [Mass ratio] 18 mg/mg 9 - 20 [facility] Brain Natriuretic Peptideon 11-11-2023 Natriuretic peptide B (Bld) [Mass/Vol] 681 pg/mL High NINF - 300 pg/mL [facility] Comment on above: An age-independent cutoff point of 300 pg/ml has a 98% negative predictive value excluding acute heart failure. CBC with Auto Differentialon 11-11-2023 Basophils (Bld) [#/Vol] 0.08 10*3/uL [facility] Basophils/100 WBC (Bld) 1 % 0 - 2 % B ON [facility] Eosinophils (Bld) [#/Vol] 0.07 10*3/uL [facility] Eosinophils/100 WBC (Bld) 1 % 1 - 4 % [facility] Erythrocyte distribution width (RBC) [Ratio] 12.2 % 11.8 - 14.4 % [facility] Hematocrit (Bld) [Volume fraction] 38.3 % Low 40.7 - 50.3 % [facility] Hemoglobin (Bld) [Mass/Vol] 12.6 g/dL Low 13.0 - 17.0 g/dL [facility] Immature granulocytes (Bld) [#/Vol] 0.03 10*3/uL [facility] Immature granulocytes/100 WBC (Bld) 0 % 0 [facility] Interpretation and review of laboratory results Abnormal [facility] Lymphocytes/100 WBC (Bld) 28 % 24 - 43 % [facility] Lymphocytes/100 WBC (Bld) 1.92 % [facility] MCH (RBC) [Entitic mass] 29.5 pg 25.2 - 33.5 pg [facility] MCHC (RBC) [Mass/Vol] 32.9 g/dL 28.4 - 34.8 g/dL [facility] MCV (RBC) [Entitic vol] 89.7 fL 82.6 - 102.9 fL [facility] Monocytes/100 WBC (Bld) 10 % 3 - 12 % B ON [facility] Monocytes/100 WBC (Bld) 0.69 % B ON [facility] Neutrophils/100 WBC (Bld) 60 % 36 - 65 % [facility] Nucleated RBC/100 WBC (Bld) [Ratio] 0.0 % 0.0 per 100 WBC [facility] Platelet mean volume (Bld) [Entitic vol] 10.7 fL 8.1 - 13.5 fL [facility] Platelets (Bld) [#/Vol] 406 10*3/uL [facility] RBC (Bld) [#/Vol] 4.27 10*6/uL 4.21 - 5.7 7 m/uL [facility] Segmented neutrophils/100 WBC (Bld) 4.06 % [facility] WBC other (Bld) [#/Vol] 6.9 B ON [facility] Comprehensive Metabolic Pane julio césar 11-11-2023 Albumin [Mass/Vol] 3.8 g/dL 3.5 - 5.2 g/dL [facility] Albumin/Globulin [Mass ratio] 1.1 {ratio} 1.0 - 2.5 [facility] ALP [Catalytic activity/Vol] 86 U/L 40 - 129 U/L [facility] ALT [Catalytic activity/Vol] 19 U/L 5 - 41 U/L [facility] Anion gap [Moles/Vol] 10 mmol/L 9 - 17 mmol/L [facility] AST [Catalytic activity/Vol] 15 U/L NINF - 40 U/L [facility] Bilirubin [Mass/Vol] 0.2 mg/dL Low 0.3 - 1 .2 mg/dL [facility] Calcium [Mass/Vol] 10.1 mg/dL 8.6 - 10. 4 mg/dL [facility] Chloride [Moles/Vol] 101 mmol/L 98 - 10 7 mmol/L [facility] CO2 [Moles/Vol] 27 mmol/L 20 - 31 mmol/L [facility] Creatinine [Mass/Vol] 1.7 mg/dL High 0.7 - 1.2 mg/dL [facility] Est, Glom Filt Rate 44 Low - [facility] Comment on above: These results are not [...] 130 mg/dL High 70 - 99 mg/dL [facility] Interpretation and review of laboratory results Abnormal [facility] Potassium [Moles/Vol] 4.4 mmol/L 3.7 - 5.3 mmol/L [facility] [employer] Protein [Mass/Vol] 7.2 g/dL 6.4 - 8.3 g/dL [facility] [employer] Sodium [Moles/Vol] 138 mmol/L 135 - 144 mmol/L [facility] Urea nitrogen [Mass/Vol] 29 mg/dL High 8 - 23 mg/dL [facility] [employer] Urea nitrogen/Creatinine [Mass ratio] 17 mg/mg 9 - 20 [facility] [employer] Hemoglobin A1Con 11-11-2023 Average glucose Estimated from glycated hemoglobin (Bld) [Mass/Vol] 177 mg/dL [facility] [employer] Comment on above: The ADA and AACC rec ommend providing the estimated average glucose result to permit better patient understanding of their HBA1c result. HbA1c (Bld) [Mass fraction] 7.8 % High 4.0 - 6.0 % [facility] [employer] Interpretation and review of laboratory results Abnormal [facility] AnalysisUNC [facility] [employer] Lipid Panelon 11-11-2023 Cholesterol [Mass/Vol] 146 mg/dL 0 - 1 99 mg/dL [facility] Comment on above: Cholesterol Guidelines: <200 Desirable 200-240 Borderline >240 Undesirable Cholesterol in HDL [Mass/Vol] 24 mg/dL Low 40 - PINF mg/dL [facility] Comment on above: HDL Guidelines: <40 Undesirable 40-59 Borderline >59 Desirable Cholesterol in LDL [Mass/Vol] 78 mg/dL 0 - 100 mg/dL [facility] Comment on above: LDL Guidelines: <100 Desirable 100-129 Near to/above Desirable 130-159 Borderline >159 Undesirable Direct (measured) LDL and calculated LDL are not interchangeable tests. Cholesterol in VLDL [Mass/Vol] 44 mg/dL [facility] Cholesterol.total/Shi sterol in HDL [Mass ratio] 6.0 {ratio} [facility] [employer] Interpretation and review of laboratory results Abnormal [facility] Triglyceride [Mass/Vol] 222 mg/dL High NINF - 150 mg/dL [facility] Comment on above: Triglyceride Guidelines: <150 Desirable 150-199 Borderline 200-499 High >499 Very high Based on AHA Guidelines for fasting triglyceride, February 2012. [facility] No Panel Informationon 11-10 Interpretation and review of laboratory results Abnormal [facility] Basic Metabolic Panelon 10-23 Anion gap [Moles/Vol] 11 mmol/L 9 - 17 mmol/L [facility] Calcium [Mass/Vol] 9.9 mg/dL 8.6 - 10. 4 mg/dL [facility] Chloride [Moles/Vol] 101 mmol/L 98 - 10 7 mmol/L [facility] CO2 [Moles/Vol] 22 mmol/L 20 - 31 mmol/L [facility] Creatinine [Mass/Vol] 1.4 mg/dL High 0.7 - 1.2 mg/dL [facility] Est, Yuliet Colónt Rate 56 Low - [facility] Comment on above: These results are not [...] 224 mg/dL High 70 - 99 mg/dL [facility] Potassium [Moles/Vol] 4.7 mmol/L 3.7 - 5.3 mmol/L [facility] Sodium [Moles/Vol] 134 mmol/L Low 135 - 144 mmol/L [facility] Urea nitrogen [Mass/Vol] 25 mg/dL High 8 - 23 mg/dL [facility] Urea nitrogen/Creatinine [Mass ratio] 18 mg/mg 9 - 20 [facility] Brain Natriuretic Peptideon 11-03-2023 Natriuretic peptide B (Bld) [Mass/Vol] 2818 pg/mL High NINF - 300 pg/mL [facility] Comment on above: An age-independent cutoff point of 300 pg/ml has a 98% negative predictive value excluding acute heart failure. Glucose, Whole Bloodon 11-02 Glucose [Mass/Vol] 196 mg/dL High 74 - 100 mg/dL [facility] Interpretation and review of laboratory results Abnormal [facility] No Panel Informationon 11-02 Interpretation and review of laboratory results Abnormal [facility] Portable XR Chest AP single viewon 11-03-2023 Mild generalized ischial prominence favoring vascular congestion. Platelike subsegmental atelectasis left costophrenic angle. No focal consolidation. [facility] RIS CONSOLIDATED EXAMINATION: ONE XRAY VIEW OF THE CHEST 11/03/2023 8:18 am COMPARISON: 05/07/2023 HISTORY: ORDERING SYSTEM PROVIDED HISTORY: shortness of breath TECHNOLOGIST PROVIDED HISTORY: shortness of breath FINDINGS: Normal cardiomediastinal silhouette. Platelike subsegmental atelectasis left costophrenic angle. Mild generalized interstitial prominence likely from mild vascular congestion. No focal consolidation. No pleural effusion or pneumothorax. No acute bony abnormality. [facility] RIS CONSOLIDATED Adrian Gonzalez MD - [...] atelectasis left costophrenic angle. No focal consolidation. [facility] Radiology Study observation (narrative) [facility] Portable XR Chest AP single viewOrdered By: Adrian Gonzalez on 11-03-2023 [facility] Work Phone: Basic Metabolic Panelon 07-23 Anion gap [Moles/Vol] 10 mmol/L 9 - 17 mmol/L [facility] Calcium [Mass/Vol] 9.1 mg/dL 8.6 - 10. 4 mg/dL [facility] Chloride [Moles/Vol] 102 mmol/L 98 - 10 7 mmol/L [facility] CO2 [Moles/Vol] 28 mmol/L 20 - 31 mmol/L [facility] Creatinine [Mass/Vol] 1.5 mg/dL High 0.7 - 1.2 mg/dL [facility] GFR/1.73 sq M.predicted MDRD (S/P/Bld) [Vol rate/Area] 52 mL/min/{1.73_m2} Low - PINF [facility] Comment on above: These results are [...] 182 mg/dL High 70 - 99 mg/dL [facility] Interpretation and review of laboratory results Abnormal [facility] Potassium [Moles/Vol] 4.8 mmol/L 3.7 - 5.3 mmol/L [facility] Sodium [Moles/Vol] 140 mmol/L 135 - 144 mmol/L [facility] Urea nitrogen [Mass/Vol] 30 mg/dL High 8 - 23 mg/dL [facility] Urea nitrogen/Creatinine [Mass ratio] 20 mg/mg 9 - 20 [facility] CBCon 06-30-2023 Erythrocyte distribution width (RBC) [Ratio] 11.8 % 11.8 - 14.4 % [facility] Hematocrit (Bld) [Volume fraction] 39.1 % Low 40.7 - 50.3 % [facility] Hemoglobin (Bld) [Mass/Vol] 12.8 g/dL Low 13.0 - 17.0 g/dL [facility] Interpretation and review of laboratory results Abnormal [facility] MCH (RBC) [Entitic mass] 29.6 pg 25.2 - 33.5 pg [facility] MCHC (RBC) [Mass/Vol] 32.7 g/dL 28.4 - 34.8 g/dL [facility] MCV (RBC) [Entitic vol] 90.5 fL 82.6 - 102.9 fL [facility] Nucleated RBC/100 WBC (Bld) [Ratio] 0.0 % 0.0 per 100 WBC [facility] Platelet mean volume (Bld) [Entitic vol] 11.0 fL 8.1 - 13.5 fL [facility] Platelets (Bld) [#/Vol] 264 10*3/uL [facility] RBC (Bld) [#/Vol] 4.32 10*6/uL 4.21 - 5.7 7 m/uL [facility] WBC other (Bld) [#/Vol] 5.9 B ON [facility] Magnesiumon 06-30-2023 Magnesium [Mass/Vol] 1.9 mg/dL 1.6 - 2 .6 mg/dL [facility] Microscopic Urinalysison Epithelial cells LM.HPF (Urine sed) [#/Area] 0 TO 2 [facility] RBC LM.HPF (Urine sed) [#/Area] 0 TO 2 [facility] WBC LM.HPF (Urine sed) [#/Area] 0 TO 2 [facility] No Panel Informationon 06-30 [facility] PTH, [place] 06-30-2023 Interpretation and review of laboratory results Abnormal [facility] Parathyrin.intact [Mass/Vol] 117.9 pg/mL High 14.0 - 72.0 pg/mL [facility] Comment on above: SAMPLES FROM PATIENT S ROUTINELY RECEIVING HIGH DOSE BIOTIN THERAPY MAY SHOW FALSELY DEPRESSED RESULTS. ADDITIONAL INFORMATION MAY BE REQUIRED FOR DIAGNOSIS. [facility] Protein / creatinine ratio, urineon 06-30-2023 Creatinine (U) [Mass/Vol] 89.0 mg/dL 39.0 - 259.0 mg/dL [facility] Interpretation and review of laboratory results Abnormal [facility] Protein (U) [Mass/Vol] 48 mg/dL [facility] Comment on above: No normal range esta blished. Urine Total Protein Creatinine Ratio 0.54 High 0.00 - 0.20 [facility] Renal Function Panelon 06-30 Albumin [Mass/Vol] 4.0 g/dL 3.5 - 5.2 g/dL [facility] Anion gap [Moles/Vol] 10 mmol/L 9 - 17 mmol/L [facility] Calcium [Mass/Vol] 8.7 mg/dL 8.6 - 10. 4 mg/dL [facility] Chloride [Moles/Vol] 100 mmol/L 98 - 10 7 mmol/L [facility] CO2 [Moles/Vol] 25 mmol/L 20 - 31 mmol/L [facility] Creatinine [Mass/Vol] 1.4 mg/dL High 0.7 - 1.2 mg/dL [facility] GFR/1.73 sq M.predicted MDRD (S/P/Bld) [Vol rate/Area] 56 mL/min/{1.73_m2} Low - PINF [facility] Comment on above: These results are [...] 230 mg/dL High 70 - 99 mg/dL [facility] Interpretation and review of laboratory results Abnormal [facility] Phosphate [Mass/Vol] 2.5 mg/dL 2.5 - 4 .5 mg/dL [facility] Potassium [Moles/Vol] 4.3 mmol/L 3.7 - 5.3 mmol/L [facility] Sodium [Moles/Vol] 135 mmol/L 135 - 144 mmol/L [facility] Urea nitrogen [Mass/Vol] 33 mg/dL High 8 - 23 mg/dL [facility] Urea nitrogen/Creatinine [Mass ratio] 24 mg/mg High 9 - 20 [facility] Uric Acidon 06-30-2023 Urate [Mass/Vol] 6.8 mg/dL 3.4 - 7.0 mg/dL [facility] Urinalysis with Reflex to Cu ltureon 06-30-2023 Bilirubin Ql (U) Negative [facility]GAT[facility] Clarity (U) Clear Clear [facility] Color (U) Yellow Yellow [facility] Glucose Test strip (U) [Mass/Vol] 2+ Abnormal NEGATIVE mg/dL [facility] Hemoglobin Auto test strip Ql (U) TRACE Abnormal NEGATIVE [facility] Interpretation and review of laboratory results Abnormal [facility] Ketones (U) [Mass/Vol] Negative NEGAT PAO mg/dL [facility] Leukocyte esterase Test strip Ql (U) Negative NEGATIVE [facility] [facility] Nitrite Ql (U) Negative NEGATIVE [place] [facility] pH (U) 6.0 [pH] 5.0 - 9.0 [facility] Protein (U) [Mass/Vol] 1+ Abnormal NEGAT PAO mg/dL [facility] Specific gravity (U) [Rel density] 1.015 1.010 - 1.020 [facility] Urobilinogen Qn (U) Normal 0.0 - 1. 0 EU/dL [facility] [place] PARATHYORID W SPECTon No parathyroid adenoma localized. [facility] EXAMINATION: NUCLEAR MEDICINE PARATHYROID SCINTIGRAPHY [...] focal areas of abnormal radiotracer activity identified. [facility] Carmen Carr MD - 01/15/2023 [...] activity identified. IMPRESSION: No parathyroid adenoma localized. [facility] Radiology Study observation (narrative) [facility] NM PARATHYORID W SPECTOrdere d By: Carmen Carr on 01-15-2023 [facility] Work Phone: XR CHEST (2 VW)on 12-22-2022 No acute process. [facility] EXAMINATION: TWO XRAY VIEWS OF THE CHEST 12/22/2022 11:10 am COMPARISON: 06/05/2021 HISTORY: ORDERING SYSTEM PROVIDED HISTORY: Dyspnea on exertion TECHNOLOGIST PROVIDED HISTORY: dyspnea on exertion FINDINGS: The lungs are without acute focal process. There is no effusion or pneumothorax. The cardiomediastinal silhouette is stable. The osseous structures are stable. [facility] Francois De La Cruz MD - 12/22/2022 EXAMINATION: TWO XRAY VIEWS OF THE CHEST 12/22/2022 11:10 am COMPARISON: 06/05/2021 HISTORY: ORDERING SYSTEM PROVIDED HISTORY: Dyspnea on exertion TECHNOLOGIST PROVIDED HISTORY: dyspnea on exertion FINDINGS: The lungs are without acute focal process. There is no effusion or pneumothorax. The cardiomediastinal silhouette is stable. The osseous structures are stable. IMPRESSION: No acute process. [facility] Radiology Study observation (narrative) GALLO Get FractalArin [facility] QuadROI XR CHEST (2 VW)Ordered By: Selena De La Cruz on 12-22-2022 [email or web address] Work Phone: A1C with Estimated Average Yifan [email or web address] 11-06-2022 Glucose [Mass/Vol] 166 mg/dL Normal [facility] Comment on above: Result Comment: PERF ORMED BY: [place] [address] PATHOLOGIST LADDER OPERATOR YURI ORTA M.D. Performed By: #### A 1C [facility] eA #### [address] HbA1c (Bld) [Mass fraction] 7.4 % High 4.3-5.6 [facility] Comment on above: Result Comment: Incr eased risk for diabetes: 5.7 - 6.4 diabetes: >6.4 glycemic control for adults with diabetes: <7.0 Performed By: #### A 1C [facility] eA #### [address] CBC AUTO DIFFon 10-20-2022 BASO # 0.0 103/ul Normal 0.0-0.1 [facility] Comment on above: Performed By: #### C BC #### [facility] [address] [place] [address] Dr. Robert Almendarez Basophils/100 WBC (Bld) 0.6 % Normal 0.2-2.0 [facility] Comment on above: Performed By: #### C BC #### [facility] [address] [place] [address] Dr. Robert Almendarez EO # 0.1 103/ul Normal 0.0-0.7 [facility] Comment on above: Performed By: #### C BC #### [facility] [address] [place] [address] Dr. Robert Almendarez Eosinophils/100 WBC (Bld) 1.4 % Normal 0.9-7.0 [facility] Comment on above: Performed By: #### C BC #### [facility] [address] [place] [address] Dr. Robert Almendarez Erythrocyte distribution width (RBC) [Ratio] 11.7 % Normal 11.0-15.0 [facility] Comment on above: Performed By: #### C BC #### [facility] [address] [place] [address] Dr. Robert Almendarez Hematocrit (Bld) [Volume fraction] 38.4 % Critically low 42.0-54.0 [facility] Comment on above: Performed By: #### C BC #### [facility] [address] [place] [address] Dr. Robert Almendarez Hemoglobin (Bld) [Mass/Vol] 12.7 g/dL Critically low 14.0-18.0 [facility] Comment on above: Performed By: #### C BC #### [facility] [address] [place] [address] Dr. Robert Almendarez IG # 0.02 10e3/ul Normal 0.00-0.03 [facility] Comment on above: Performed By: #### C BC #### [facility] [address] [place] [address] Dr. Robert Almendarez IG % 0.3 % Normal 0.0-0.5 [facility] Comment on above: Performed By: #### C BC #### [facility] [address] [place] [address] Dr. Robert Almendarez LYMPH # 1.4 103/ul Normal 1.2-3.8 [facility] Comment on above: Performed By: #### C BC #### [facility] [address] [place] [address] Dr. Robert Almendarez Lymphocytes/100 WBC (Bld) 21.2 % Normal 20.5-60.0 [facility] Comment on above: Performed By: #### C BC #### [facility] [address] [place] [address] Dr. Robert Almendarez MANUAL DIFF REQ NO Normal [facility] Comment on above: Performed By: #### C BC #### [facility] [address] [place] [address] Dr. Robert Almendarez MCH (RBC) [Entitic mass] 29.3 pg Normal 25.9-34.0 [facility] Comment on above: Performed By: #### C BC #### [facility] [address] [place] [address] Dr. Robert Almendarez MCHC (RBC) [Mass/Vol] 33.1 g/dL Normal 29.9-35.2 [facility] Comment on above: Performed By: #### C BC #### [facility] [address] [place] [address] Dr. Robert Almendarez MCV (RBC) [Entitic vol] 88.7 fL Normal 80.0-94.0 [facility] Comment on above: Performed By: #### C BC #### [facility] [address] [place] [address] Dr. Robert Almendarez MONO # 0.5 103/ul Normal 0.3-0.8 [facility] Comment on above: Performed By: #### C BC #### [facility] [address] [place] [address] Dr. Robert Almendarez Monocytes/100 WBC (Bld) 7.1 % Normal 1.7-12.0 [facility] Comment on above: Performed By: #### C BC #### [facility] [address] [place] [address] Dr. Robert Almendarez NEUT # 4.6 103/ul Normal 1.4-6.5 [facility] Comment on above: Performed By: #### C BC #### [facility] [address] [place] [address] Dr. Robert Almendarez Neutrophils/100 WBC (Bld) 69.4 % Normal 43.0-75.0 [facility] Comment on above: Performed By: #### C BC #### [facility] [address] [place] [address] Dr. Robert Almendarez Platelet mean volume (Bld) [Entitic vol] 10.7 fL Normal 9.5-13.5 [facility] Comment on above: Performed By: #### C BC #### [facility] [address] [address] [address] Robert Almendarez PLT 232 103/ul Normal 150-450 [facility] Comment on above: Performed By: #### C BC #### [facility] [address] [address] [address] Robert Almendarez RBC 4.33 106/ul Critically low 4.70-6.10 [facility] Comment on above: Performed By: #### C BC #### [facility] [id number] Robert Almendarez WBC 6.7 103/ul Normal 4.0-11.0 [facility] Comment on above: Performed By: #### C BC #### [facility] [address] [place] [address] ABD/PELVIS WO CONon [...] REBEKAH THOMPSON Date: 2022-10-20 14:47 Normal [facility] CULTURE URINEon 10-20-2022 CULTURE URINE Culture Observations : NO GROWTH. Normal [facility] Comment on above: Performed By: #### P T, PTT #### [facility] [address] [place] [address] Dr. Robert Almendarez ER URINE PROFILEon 3 Bilirubin Ql (U) Negative Normal NEGATIVE [facility] Comment on above: Performed By: #### Fallon YAÑEZ UMICRO #### [facility] [address] [place] [address] Dr. Robert Almendarez Clarity (U) SL CLOUDY Abnormal CLEAR [facility] Comment on above: Performed By: #### Fallon YAÑEZ UMICRO #### [facility] [address] [place] [address] Dr. Robert Almendarez Color (U) RED Abnormal YELLOW [facility] Comment on above: Performed By: #### Fallon YAÑEZ UMICRO #### [facility] [address] [place] [address] Dr. Robert Almendarez ERUJazmine A micrscopic examination will be performed if indicated. Normal [facility] Comment on above: Performed By: #### Fallon YAÑEZ UMICRO #### [facility] [address] [place] [address] Dr. Robert Almendarez Glucose Ql (U) Negative Normal NEGATIVE [facility] Comment on above: Performed By: #### Fallon YAÑEZ UMICRO #### [facility] [address] [place] [address] Dr. Robert Almendarez Hemoglobin Ql (U) LARGE Abnormal NEGATIVE [facility] Comment on above: Performed By: #### Fallon YAÑEZ UMICRO #### [facility] [address] [place] [address] Dr. Robert Almendarez Ketones Ql (U) Negative Normal NEGATIVE [facility] Comment on above: Performed By: #### Fallon YAÑEZ UMICRO #### [facility] [address] [place] [address] Dr. Robert Almendarez LEUKOCYTES MODERATE Abnormal NEGATIVE [facility] Comment on above: Performed By: #### Fallon YAÑEZ UMICRO #### [facility] [address] [place] [address] Dr. Robert Almendarez Nitrite Ql (U) Unable to perform testing due to color interference. Abnormal NEGATIVE [facility] Comment on above: Performed By: #### Fallon YAÑEZ UMICRO #### [facility] [address] [place] [address] Dr. Robert Almendarez pH (U) 5.0 [pH] Normal 5-9 [facility] Comment on above: Performed By: #### Fallon YAÑEZ UMICRO #### [facility] [address] [place] [address] Dr. Robert Almendarez Protein (U) [Mass/Vol] 300 mg/dL Abnormal NEGAT PAO/ TRACE [facility] Comment on above: Performed By: #### Fallon YAÑEZ UMICRO #### [facility] [address] [place] [address] Dr. Robert Almendarez SPEC GRAVITY 1.015 Normal 1.005-<=1.0 25 [facility] Comment on above: Performed By: #### Fallon YAÑEZ UMICRO #### [facility] [address] [place] [address] Dr. Robert Almendarez UR MICRO IND INDICATED Normal [facility] Comment on above: Performed By: #### Fallon YAÑEZ UMICRO #### [facility] [address] [place] [address] Dr. Robert Almendarez Urobilinogen Qn (U) 1.0 {Fabiana'U}/dL Normal 0.2 - 1. 0 [facility] Comment on above: Performed By: #### E MARIA C YAÑEZ #### [facility] [address] [address] [address] Robert Almendarez PROF 14(COMP METB)on 023 Albumin [Mass/Vol] 3.5 g/dL Normal 3.4-5.0 [facility] Comment on above: Performed By: #### C MP #### [facility] [address] [place] [address] Dr. Robert Almendarez Albumin/Globulin [Mass ratio] 0.9 {ratio} Normal [facility] Comment on above: Performed By: #### C MP #### [facility] [address] [place] [address] Dr. Robert Almendarez ALP [Catalytic activity/Vol] 78 U/L Normal 46-116 [facility] Comment on above: Performed By: #### C MP #### [facility] [address] [place] [address] Dr. Robert Almendarez ALT [Catalytic activity/Vol] 28 U/L Normal 16-63 [facility] Comment on above: Performed By: #### C MP #### [facility] [address] [place] [address] Dr. Robert Almendarez Anion gap [Moles/Vol] 14.1 mmol/L Normal [facility] Comment on above: Performed By: #### C MP #### [facility] [address] [place] [address] Dr. Robert Almendarez AST [Catalytic activity/Vol] 15 U/L Normal 15-37 [facility] Comment on above: Performed By: #### C MP #### [facility] [address] [place] [address] Dr. Robert Almendarez Bilirubin [Mass/Vol] 0.4 mg/dL Normal 0.2-1.0 [facility] Comment on above: Performed By: #### C MP #### [facility] [address] [place] [address] Dr. Robert Almendarez Calcium [Mass/Vol] 10.6 mg/dL Critically high 8.5-10.1 [facility] Comment on above: Performed By: #### C MP #### [facility] [address] [address] [address] Robert Almendarez Chloride [Moles/Vol] 100 mmol/L Normal 98-107 [facility] Comment on above: Performed By: #### C MP #### [facility] [address] [address] [address] Robert Almendarez CO2 [Moles/Vol] 25.4 mmol/L Normal 21.0-32.0 [facility] Comment on above: Performed By: #### C MP #### [facility] [address] [address] [address] Robert Almendarez Creatinine [Mass/Vol] 1.81 mg/dL Critically high 0.70-1.30 [facility] Comment on above: Performed By: #### C MP #### [facility] [address] [place] [address] Dr. Robert Almendarez EGFR-AF MOZAMBICAN 46 mL/min/1.73m2 Critically low >=60 [facility] Comment on above: Performed By: #### C MP #### [facility] [address] [address] [address] Robert Almendarez EGFR-NON AF MOZAMBICAN 38 mL/min/1.73m2 Critically low >=60 [facility] Comment on above: Performed By: #### C MP #### [facility] [address] [place] [address] Dr. Robert Almendarez Globulin (S) [Mass/Vol] 4.0 g/dL Normal [facility] Comment on above: Performed By: #### C MP #### [facility] [address] [address] [address] Robert Almendarez Glucose [Mass/Vol] 177 mg/dL Critically high 74-106 [facility] Comment on above: Performed By: #### C MP #### [facility] [address] [address] [address] Robert Almendarez Potassium [Moles/Vol] 4.5 mmol/L Normal 3.5-5.1 [facility] Comment on above: Performed By: #### C MP #### [facility] [address] [address] [address] Robert Almendarez Protein [Mass/Vol] 7.5 g/dL Normal 6.4-8.2 [facility] Comment on above: Performed By: #### C MP #### [facility] [address] [address] [address] Robert Almendarez Sodium [Moles/Vol] 135 mmol/L Critically low 136-145 Th [facility] Comment on above: Performed By: #### C MP #### [facility] [address] [address] [address] Robert Almendarez Urea nitrogen [Mass/Vol] 32.0 mg/dL Critically high 7.0-18.0 [facility] Comment on above: Performed By: #### C MP #### [facility] [address] [place] [address] Dr. Robert Almendarez Urea nitrogen/Creatinine [Mass ratio] 17.7 mg/mg Normal [facility] Comment on above: Performed By: #### C MP #### [facility] [address] [place] [address] Dr. Robert Almendarez TYPE AND SCREENon 10-20-2022 TYPE AND SCREEN Negative Normal [facility] Comment on above: Performed By: #### P T, PTT #### [facility] [address] [place] [address] Dr. Robert Almendarez URINE MICROSCOPIC ONLYon BACTERIA NONE SEEN Normal NONE SEEN [facility] Comment on above: Performed By: #### Fallon YAÑEZ UMICRO #### [facility] [address] [place] [address] Dr. Robert Almendarez Bacteria identified Cx Nom (U) NOT INDICATED Normal [facility] Comment on above: Performed By: #### E OTILIO UMICRO #### [facility] [address] [place] [address] Dr. Robert Almendarez CAST NONE SEEN Normal NONE SEEN [facility] Comment on above: Performed By: #### Fallon YAÑEZ UMICRO #### [facility] [address] [place] [address] Dr. Robert Almendarez Crystals LM Nom (Urine sed) NONE SEEN Normal NONE SEEN [facility] Comment on above: Performed By: #### JOSE HAYESRO #### [facility] [address] [place] [address] Dr. Robert Almendarez Epithelial cells LM Ql (Urine sed) NONE SEEN Normal NONE SEEN /RARE [facility] Comment on above: Performed By: #### Fallon YAÑEZ UMICRO #### [facility] [address] [place] [address] Dr. Robert Almendarez MUCOUS NONE SEEN Normal NONE SEEN [facility] Comment on above: Performed By: #### Fallon YAÑEZ UMFRANCESRO #### [facility] [address] [place] [address] Dr. Robert Almendarez RBC 75-100 Abnormal 0-2 [facility] Comment on above: Performed By: #### JOSE HAYESRO #### [facility] [address] [place] [address] Dr. Robert Almendarez WBC 10-20 Abnormal NONE SEEN [facility] Comment on above: Performed By: #### JOSE HAYESRO #### [facility] [address] [place] [address] Dr. Robert Almendarez BNPon 10-13-2022 Natriuretic peptide B (Bld) [Mass/Vol] 473.0 pg/mL Normal <=900.0 [facility] Comment on above: Performed By: #### P T, PTT #### [facility] [address] [place] [address] Dr. Robert Almendarez CARDIAC FLOYD ADMITon 023 CK [Catalytic activity/Vol] 60 U/L Normal 39-308 [facility] Comment on above: Performed By: #### P T, PTT #### [facility] [address] [place] [address] Dr. Robert Almendarez CK.MB [Mass/Vol] 1.74 ng/mL Normal <=3.60 [facility] Comment on above: Performed By: #### P T, PTT #### [facility] [address] [place] [address] Dr. Robert Almendarez HSTROP 29.8 pg/mL Normal 4.0-76.1 [facility] Comment on above: Result Comment: CUT- OFF POINTS HAVE BEEN ESTABLISHED BASED ON THE FOURTH UNIVERSAL DEFINITIONS OF MYOCARDIAL INFARCTION. THE UPPER REFERENCE LIMIT (URL) OF TROPONIN, DEFINED THE 99TH PERCENTILE OF cTnI DISTRIBUTION IN A REFERENCE POPULATION, HAS BEEN CONFIRMED THE DECISION THRESHOLD FOR WI DIAGNOSIS. Performed By: #### P T, PTT #### [facility] [address] [address] [address] Robert Almendarez JERMAN 70 ng/mL Normal 16-96 [facility] Comment on above: Performed By: #### P T, PTT #### [facility] [address] [place] [address] Dr. Robert Almendarez CBC AUTO DIFFon 10-13-2022 BASO # 0.0 103/ul Normal 0.0-0.1 [facility] Comment on above: Performed By: #### C BC #### [facility] [address] [place] [address] Dr. Robert Almendarez Basophils/100 WBC (Bld) 0.7 % Normal 0.2-2.0 [facility] Comment on above: Performed By: #### C BC #### [facility] [address] [place] [address] Dr. Robert Almendarez EO # 0.1 103/ul Normal 0.0-0.7 [facility] Comment on above: Performed By: #### C BC #### [facility] [address] [address] [address] Robert Almendarez Eosinophils/100 WBC (Bld) 1.1 % Normal 0.9-7.0 [facility] Comment on above: Performed By: #### C BC #### [facility] [address] [place] [address] Dr. Robert Almendarez Erythrocyte distribution width (RBC) [Ratio] 11.7 % Normal 11.0-15.0 [facility] Comment on above: Performed By: #### C BC #### [facility] [address] [place] [address] Dr. Robert Almendarze Hematocrit (Bld) [Volume fraction] 39.0 % Critically low 42.0-54.0 [facility] Comment on above: Performed By: #### C BC #### [facility] [address] [place] [address] Dr. Robert Almendarez Hemoglobin (Bld) [Mass/Vol] 13.1 g/dL Critically low 14.0-18.0 [facility] Comment on above: Performed By: #### C BC #### [facility] [address] [place] [address] Dr. Robert Amlendarez IG # 0.02 10e3/ul Normal 0.00-0.03 [facility] Comment on above: Performed By: #### C BC #### [facility] [address] [place] [address] Dr. Robert Almendarez IG % 0.3 % Normal 0.0-0.5 [facility] Comment on above: Performed By: #### C BC #### [facility] [address] [place] [address] Dr. Robert Almendarez LYMPH # 2.0 103/ul Normal 1.2-3.8 [facility] Comment on above: Performed By: #### C BC #### [facility] [address] [place] [address] Dr. Robert Almendarez Lymphocytes/100 WBC (Bld) 32.4 % Normal 20.5-60.0 [facility] Comment on above: Performed By: #### C BC #### [facility] [address] [place] [address] Dr. Robert Almendarez MANUAL DIFF REQ NO Normal [facility] Comment on above: Performed By: #### C BC #### [facility] [address] [place] [address] Dr. Robert Almendarez MCH (RBC) [Entitic mass] 29.5 pg Normal 25.9-34.0 [facility] Comment on above: Performed By: #### C BC #### [facility] [address] [place] [address] Dr. Robert Almendarez MCHC (RBC) [Mass/Vol] 33.6 g/dL Normal 29.9-35.2 [facility] Comment on above: Performed By: #### C BC #### [facility] [address] [place] [address] Dr. Robert Almendarez MCV (RBC) [Entitic vol] 87.8 fL Normal 80.0-94.0 [facility] Comment on above: Performed By: #### C BC #### [facility] [address] [place] [address] Dr. Robert Almendarez MONO # 0.6 103/ul Normal 0.3-0.8 [facility] Comment on above: Performed By: #### C BC #### [facility] [address] [place] [address] Dr. Robert Almendarez Monocytes/100 WBC (Bld) 9.2 % Normal 1.7-12.0 [facility] Comment on above: Performed By: #### C BC #### [facility] [address] [place] [address] Dr. Robert Almendarez NEUT # 3.5 103/ul Normal 1.4-6.5 [facility] Comment on above: Performed By: #### C BC #### [facility] [address] [place] [address] Dr. Robert Almendarez Neutrophils/100 WBC (Bld) 56.3 % Normal 43.0-75.0 [facility] Comment on above: Performed By: #### C BC #### [facility] [address] [place] [address] Dr. Robert Almendarez Platelet mean volume (Bld) [Entitic vol] 11.0 fL Normal 9.5-13.5 [facility] Comment on above: Performed By: #### C BC #### [facility] [address] [place] [address] Dr. Roebrt Almendarez PLT 265 103/ul Normal 150-450 [facility] Comment on above: Performed By: #### C BC #### [facility] [address] [place] [address] Dr. Robert Almendarez RBC 4.44 106/ul Critically low 4.70-6.10 [facility] Comment on above: Performed By: #### C BC #### [facility] [address] [place], [place] [address] Dr. Robert Almendarez WBC 6.1 103/ul Normal 4.0-11.0 [facility] Comment on above: Performed By: #### C BC #### [facility] [address] [place], [place] [address] ABD/PELVIS WO CONon [...] ALICE TOURETIFFANY Date: 2022-10-13 14:16 Normal [facility] URINE PROFILEon 3 Bilirubin Ql (U) Negative Normal NEGATIVE [facility] Comment on above: Performed By: #### E MITULR UMICRO #### [facility] [address] [place] [address] [address] Robert Almendarez Clarity (U) CLEAR Normal CLEAR [facility] Comment on above: Performed By: #### E OTILIO UMICRO #### [facility] [address] [place] [address] [address] Robert Almendarez Color (U) LT. YELLOW Normal YELLOW [facility] Comment on above: Performed By: #### E OTILIO UMICRO #### [facility] [address] [place] [address] Dr. Robert STRICKLAND A micrscopic examination will be performed if indicated. Normal [facility] Comment on above: Performed By: #### Fallon YAÑEZ UMICRO #### [facility] [address] [place] [address] [address] Robert Almendarez Glucose Ql (U) Negative Normal NEGATIVE [facility] Comment on above: Performed By: #### Fallon YAÑEZ UMICRO #### [facility] [address] [place] [address] [address] Robert Almendarez Hemoglobin Ql (U) TRACE-INTACT Abnormal NEGATIVE [facility] Comment on above: Performed By: #### E RUR, UMICRO #### [facility] [address] [place] [address] [address] Robert Almendarez Ketones Ql (U) Negative Normal NEGATIVE [facility] Comment on above: Performed By: #### E RUR UMICRO #### [facility] [address] [place] [address] [address] Robert Almendarez LEUKOCYTES Negative Normal NEGATIVE [facility] Comment on above: Performed By: #### Fallon RUR UMICRO #### [facility] [address] [place] [address] Dr. Roebrt Almendarez Nitrite Ql (U) Negative Normal NEGATIVE [facility] Comment on above: Performed By: #### MARIA C HAYES #### [facility] [address] [place] [address] Dr. Robert Almendarez pH (U) 7.0 [pH] Normal 5-9 [facility] Comment on above: Performed By: #### JOSE HAYESRO #### [facility] [address] [place] [address] Dr. Robert Almendarez Protein (U) [Mass/Vol] 30 mg/dL Abnormal NEGAT PAO/ TRACE [facility] Comment on above: Performed By: #### JOSE HAYESRO #### [facility] [address] [place] [address] Dr. Robert Almendarez SPEC GRAVITY 1.010 Normal 1.005-<=1.[address] [place] [address] Comment on above: Performed By: #### JOSE HAYESRO #### [facility] [address] [place] [address] Dr. Robert Almendarez UR MICRO IND INDICATED Normal [facility] Comment on above: Performed By: #### JOSE HAYESRO #### [facility] [address] [place] [address] Dr. Robert Almendarez Urobilinogen Qn (U) 0.2 {Fabiana'U}/dL Normal 0.2 - 1. 0 [facility] Comment on above: Performed By: #### JOSE HAYESRO #### [facility] [address] [place] [address] Dr. Robert Almendarez PROF 14(COMP METB)on 023 Albumin [Mass/Vol] 3.4 g/dL Normal 3.4-5.0 [facility] Comment on above: Performed By: #### P T, PTT #### [facility] [address] [place] [address] Dr. Robert Almendarez Albumin/Globulin [Mass ratio] 1.0 {ratio} Normal [facility] Comment on above: Performed By: #### P T, PTT #### [facility] [address] [place] [address] [address] Robert Almendarez ALP [Catalytic activity/Vol] 80 U/L Normal 46-116 [facility] Comment on above: Performed By: #### P T, PTT #### [facility] [address] [place] [address] Dr. Robert Almendarez ALT [Catalytic activity/Vol] 25 U/L Normal 16-63 [facility] Comment on above: Performed By: #### P T, PTT #### [facility] [address] [place] [address] Dr. Robert Almendarez Anion gap [Moles/Vol] 10.3 mmol/L Normal Th [facility] Comment on above: Performed By: #### P T, PTT #### [facility] [address] [place] [address] Dr. Robert Almendarez AST [Catalytic activity/Vol] 17 U/L Normal 15-37 [facility] Comment on above: Performed By: #### P T, PTT #### [facility] [address] [place] [address] Dr. Robert Almendarez Bilirubin [Mass/Vol] 0.3 mg/dL Normal 0.2-1.0 [facility] Comment on above: Performed By: #### P T, PTT #### [facility] [address] [place] [address] Dr. Robert Almendarez Calcium [Mass/Vol] 10.4 mg/dL Critically high 8.5-10.1 [facility] Comment on above: Performed By: #### P T, PTT #### [facility] [address] [place] [address] Dr. Robert Almendarez Chloride [Moles/Vol] 105 mmol/L Normal 98-107 [facility] Comment on above: Performed By: #### P T, PTT #### [facility] [address] [place] [address] Dr. Robert Almendarez CO2 [Moles/Vol] 26.9 mmol/L Normal 21.0-32.0 [facility] Comment on above: Performed By: #### P T, PTT #### [facility] [address] [place] [address] [address] Robert Almendarez Creatinine [Mass/Vol] 1.43 mg/dL Critically high 0.70-1.30 [facility] Comment on above: Performed By: #### P T, PTT #### [facility] [address] [place] [address] [address] Robert Almendarez EGFR-AF MOZAMBICAN >60 Normal >=60 [facility] Comment on above: Performed By: #### P T, PTT #### [facility] [address] [place] [address] [address] Robert Almendarez EGFR-NON AF MOZAMBICAN 50 mL/min/1.73m2 Critically low >=60 [facility] Comment on above: Performed By: #### P T, PTT #### [facility] [address] [place] [address] Dr. Robert Almendarez Globulin (S) [Mass/Vol] 3.5 g/dL Normal [facility] Comment on above: Performed By: #### P T, PTT #### [facility] [address] [place] [address] [address] Robert Almendarez Glucose [Mass/Vol] 168 mg/dL Critically high 74-106 [facility] Comment on above: Performed By: #### P T, PTT #### [facility] [address] [place] [address] [address] Robert Almendarez Potassium [Moles/Vol] 4.2 mmol/L Normal 3.5-5.1 [facility] Comment on above: Performed By: #### P T, PTT #### [facility] [address] [place] [address] [address] Robert Almendarez Protein [Mass/Vol] 6.9 g/dL Normal 6.4-8.2 [facility] Comment on above: Performed By: #### P T, PTT #### [facility] [address] [place] [address] [address] Robert Almendarez Sodium [Moles/Vol] 138 mmol/L Normal 136-145 [facility] Comment on above: Performed By: #### P T, PTT #### [facility] [address] [place] [address] Dr. Robert Almendarez Urea nitrogen [Mass/Vol] 23.0 mg/dL Critically high 7.0-18.0 [facility] Comment on above: Performed By: #### P T, PTT #### [facility] [address] [place] [address] Dr. Robert Almendarez Urea nitrogen/Creatinine [Mass ratio] 16.1 mg/mg Normal [facility] Comment on above: Performed By: #### P T, PTT #### [facility] [address] [place] [address] Dr. Robert Almendarez PROTIMEon 10-13-2022 INR Coag (PPP) [Relative time] 1.00 {INR} Normal [facility] Comment on above: Performed By: #### P T, PTT #### [facility] [address] [place] [address] Dr. Robert Almendarez INR GUIDELINES SEE BELOW Normal [facility] Comment on above: Result Comment: DAVID RED INR: 2.0 - 3.0 CONDITIONS NOT LISTED BELOW 2.5 - 3.5 FOR PROSTHETIC HEART VALVE REPLACEMENT 2.5 - 3.5 RECURRENT THROMBOSIS Performed By: #### P T, PTT #### [facility] [address] [place] [address] Dr. Robert Almendarez PT Coag (PPP) [Time] 10.6 s Normal 9.0-11.6 [facility] Comment on above: Performed By: #### P T, PTT #### [facility] [address] [place] [address] Dr. Robert Almendarez PTTon 10-13-2022 aPTT Coag (Bld) [Time] 25.4 s Normal 22.3-36.2 Th [facility] Comment on above: Performed By: #### P T, PTT #### [facility] [address] [place] [address] Dr. Robert Almendarez URINE MICROSCOPIC ONLYon BACTERIA NONE SEEN Normal NONE SEEN [facility] Comment on above: Performed By: #### E OTILIO, UMICRO #### [facility] [address] [place] [address] Dr. Robert Almendarez Bacteria identified Cx Nom (U) NOT INDICATED Normal [facility] Comment on above: Performed By: #### Fallon YAÑEZ UMICRO #### [facility] [address] [place] [address] Dr. Robert Almnedarez CAST NONE SEEN Normal NONE SEEN [facility] Comment on above: Performed By: #### Fallon YAÑEZ UMICRO #### [facility] [address] [place] [address] Dr. Robert Almendarez Crystals LM Nom (Urine sed) NONE SEEN Normal NONE SEEN [facility] Comment on above: Performed By: #### Fallon YAÑEZ UMICRO #### [facility] [address] [place] [address] Dr. Robert Almendarez Epithelial cells LM Ql (Urine sed) RARE Normal NONE SEEN /RARE [facility] Comment on above: Performed By: #### Fallon YAÑEZ UMICRO #### [facility] [address] [place] [address] Dr. Robert Almendarez MUCOUS NONE SEEN Normal NONE SEEN [facility] Comment on above: Performed By: #### Fallon YAÑEZ UMICRO #### [facility] [address] [place] [address] Dr. Robert Almendarez RBC 0-2 Normal 0-2 [facility] Comment on above: Performed By: #### Fallon YAÑEZ UMICRO #### [facility] [address] [place] [address] Dr. Robert Almendarez WBC 0-2 Abnormal NONE SEEN [facility] Comment on above: Performed By: #### Fallon YAÑEZ UMICRO #### [facility] [address] [place] [address] Dr. Robert Almendarez XR CHEST 1 Von [...] FLOYD KHUSHBOO Date: 2022-10-13 12:48 Normal [facility] Echo 2D w doppler w color co mpleteon 07-11-2022 [facility] Transthoracic Echocardiography Report (TTE) Patient Name LAURA Date of Study 07/11/2022 PIOTR A Date of 1960 Gender Male Age 61 year(s) Race Room Number Height: 72 inch, 182.88 cm Corporate ID [id number] Weight: 240 pounds, 108.9 kg # Patient Acct [id number] BSA: 2.3 m^2 BMI: 32.55 # kg/m^2 MR # [id number] Electronic Tester Dionna Barriga Interpreting Physician Alice Mars Fellow Referring Nurse Practitioner Interpreting Referring Physician Alma Kan Fellow Type of Study TTE procedure:2D Echocardiogram, M-Mode, Doppler, Color Doppler. Procedure Date Date: 07/11/2022 Start: 10:46 AM [facility] Indications:Preop cardiac evaluation. History / Tech. [...] velocity:0.11 m/s Lateral Wall E/E':9.2 [facility] Alice Mars MD - 07/11/[address] [facility] Transthoracic Echocardiography Report (TTE) Patient Name LAURA Date of Study 07/11/2022 PIOTR A Date of 1960 Gender Male Age 61 year(s) Race Room Number Height: 72 inch, 182.88 cm Corporate ID [id number] Weight: 240 pounds, 108.9 kg # Patient Acct [id number] BSA: 2.3 m^2 BMI: 32.55 # kg/m^2 MR # [id number] Electronic Tester Dionna Barriga Interpreting Physician Alice Mars Fellow Referring Nurse Practitioner Interpreting Referring Physician Alma Kan Type of Study TTE procedure:2D Echocardiogram, M-Mode, Doppler, Color Doppler. Procedure Date Date: 07/11/2022 Start: 10:46 AM [facility] Indications:Preop cardiac evaluation. History / Tech. [...] Wall E' velocity:0.11 m/s Lateral Wall E/E':9.2 [facility] Work Phone: Echo 2D w doppler w color co mpleteOrdered By: Alice Mars on 07-11-2022 [facility] Work Phone: CBC with Auto Differentialon 06-25-2022 Absolute Eos # 0.[address] [place] [facility] Absolute Immature Granulocyte [facility] Absolute Lymph # 1.89 [facility] Absolute Collier # 0.62 [facility] Basophils (Bld) [#/Vol] 0.05 10*3/uL [facility] Basophils/100 WBC (Bld) 1 % 0 - 2 % B ON [facility] Eosinophils/100 WBC (Bld) 1 % 1 - 4 % [facility] Hematocrit (Bld) [Volume fraction] 39.3 % Low 40.7 - 50.3 % [facility] Hemoglobin (Bld) [Mass/Vol] 12.9 g/dL Low 13.0 - 17.0 g/dL [facility] Immature granulocytes/100 WBC (Bld) 0 % 0 [facility] Interpretation and review of laboratory results Abnormal [facility] Lymphocytes/100 WBC (Bld) 27 % 24 - 43 % [facility] MCH (RBC) [Entitic mass] 30.3 pg 25.2 - 33.5 pg [facility] MCHC (RBC) [Mass/Vol] 32.8 g/dL 28.4 - 34.8 g/dL [facility] MCV (RBC) [Entitic vol] 92.3 fL 82.6 - 102.9 fL [facility] Monocytes/100 WBC (Bld) 9 % 3 - 12 % B ON [facility] NRBC Automated 0.0 0.0 per 100 WBC [facility] Platelet distribution width (Bld) [Ratio] 11.7 % Low 11.8 - 14.4 % [employer] Platelet mean volume (Bld) [Entitic vol] 10.9 fL 8.1 - 13.5 fL [employer] Platelets (Bld) [#/Vol] 236 10*3/uL [employer] [facility] RBC (Bld) [#/Vol] 4.26 10*6/uL 4.21 - 5.7 7 m/uL [employer] [place] Segmented neutrophils/100 WBC (Bld) 62 % 36 - 65 % [employer] [place] Segs Absolute 4.44 [employer] IZI-[employer] WBC (Bld) [#/Vol] 7.1 10*3/uL [facility] [employer] [facility] E[facility] 12 Leadon 06-25-2022 Atrial Rate 60 BPM [employer] Work Phone: P [place] 42 degrees [employer] Work Phone: P-R Interval 134 ms [employer] Work Phone: Q-T Interval 386 ms [employer] Work Phone: QRS Duration 94 ms [employer] Work Phone: QTc Calculation (Bazett) 386 ms [employer] Work Phone: R [place] -2 degrees [employer] Work Phone: T [place] 23 degrees [employer] Work Phone: Ventricular Rate 60 BPM [employer] Work Phone: Normal sinus rhythm Can not rule out septal infarction, age undetermined. Abnormal ECG When compared with ECG of 05-JUN-2021 18:44, Nonspecific T wave abnormality, improved in Inferior leads Minimal criteria for septal infarction is now present. Confirmed by Alma Kan MD ([id number]) on 06/25/2022 8:14:36 PM [facility] RADIOLOGY Alma Kan MD - 06/25/2022 Normal sinus rhythm Can not rule out septal infarction, age undetermined. Abnormal ECG When compared with ECG of 05-JUN-2021 18:44, Nonspecific T wave abnormality, improved in Inferior leads Minimal criteria for septal infarction is now present. Confirmed by Alma Kan MD ([id number]) on 06/25/2022 8:14:36 PM [facility] Work Phone: [facility] Work Phone: Albuminon 05-24-2022 Albumin [Mass/Vol] 4 g/dL 3.5 - 5.2 g/dL [facility] CALCIUM,TIMED URon Calcium [Mass/Vol] 9.4 mg/dL [facility] Calcium, Urine 122 [facility] Hours Collected 24 h [facility] Volume 1300 mL [facility] Calciumon 05-24-2022 Calcium [Mass/Vol] 11.7 mg/dL High 8.6 - 10. 4 mg/dL [facility] Cortisol Totalon 05-24-2022 Cortisol 10.4 ug/dL 2.7 - 18.4 ug/dL [facility] Comment on above: Cortisol Reference Range: AM 6.0-18.4 PM 2.7-10.5 Cortisol Collection Info Unknown [facility] No Panel Informationon 05-24 Interpretation and review of laboratory results Abnormal [facility] PTH, [place] 05-24-2022 Interpretation and review of laboratory results Abnormal [facility] Pth Intact 107.7 pg/mL High 14.0 - 72.0 pg/mL [facility] Comment on above: SAMPLES FROM PATIENT S ROUTINELY RECEIVING HIGH DOSE BIOTIN THERAPY MAY SHOW FALSELY DEPRESSED RESULTS. ADDITIONAL INFORMATION MAY BE REQUIRED FOR DIAGNOSIS. [facility] Phosphoruson 05-24-2022 Phosphate [Mass/Vol] 1.5 mg/dL Low 2.5 - 4 .5 mg/dL [facility] US RENAL COMPLETEon 05-20-20 Appearance (U) Unremarkable ultrasound the kidneys. Unremarkable appearance urinary bladder with 309 mL postvoid residual volume. RECOMMENDATIONS: Unavailable [facility] CONSOLIDATED EXAMINATION: RETROPERITONEAL ULTRASOUND OF THE KIDNEYS AND URINARY BLADDER 05/20/2022 COMPARISON: None HISTORY: ORDERING SYSTEM PROVIDED HISTORY: Incomplete bladder emptying TECHNOLOGIST PROVIDED HISTORY: This procedure can be scheduled via [employer]. Access your [employer] account by visiting [employer]. Incomplete bladder emptying, chronic kidney disease 3 FINDINGS: Kidneys: The right kidney measures 11.4 cm in length and the left kidney measures 11.3 cm in length. Kidneys demonstrate normal cortical echogenicity. No evidence of hydronephrosis or intrarenal stones. Bladder: Unremarkable appearance urinary bladder with prevoid volume 594 mL. Postvoid residual 309 mL. [facility] RIS CONSOLIDATED You Null DO - 05/20/2022 EXAMINATION: RETROPERITONEAL ULTRASOUND OF THE KIDNEYS AND URINARY BLADDER 05/20/2022 COMPARISON: None HISTORY: ORDERING SYSTEM PROVIDED HISTORY: Incomplete bladder emptying TECHNOLOGIST PROVIDED HISTORY: This procedure can be scheduled via [employer]. Access your [employer] account by visiting [employer]. Incomplete bladder emptying, chronic kidney disease 3 [...] 309 mL postvoid residual volume. RECOMMENDATIONS: Unavailable [employer] Phone: Radiology Study observation (narrative) [employer] Phone: US RENAL COMPLETEOrdered By: You Null on 05-20-2022 [employer] Phone: CBC AUTO DIFFon 05-14-2022 BASO # 0.0 103/ul Normal 0.0-0.1 [facility] Comment on above: Performed By: #### P T, PTT #### [facility] [address] [place] [address] [address] Robert Almendarez Basophils/100 WBC (Bld) 0.6 % Normal 0.2-2.0 [facility] Comment on above: Performed By: #### P T, PTT #### [facility] [address] [place] [address] Dr. Robert Almendarez EO # 0.1 103/ul Normal 0.0-0.7 [facility] Comment on above: Performed By: #### P T, PTT #### [facility] [address] [place] [address] Dr. Robert Almendarez Eosinophils/100 WBC (Bld) 1.0 % Normal 0.9-7.0 [facility] Comment on above: Performed By: #### P T, PTT #### [facility] [address] [place] [address] Dr. Robert Almendarez Erythrocyte distribution width (RBC) [Ratio] 11.9 % Normal 11.0-15.0 [facility] Comment on above: Performed By: #### P T, PTT #### [facility] [address] [place] [address] Dr. Robert Almendarez Hematocrit (Bld) [Volume fraction] 40.1 % Critically low 42.0-54.0 [facility] Comment on above: Performed By: #### P T, PTT #### [facility] [address] [place] [address] Dr. Robert Almendarez Hemoglobin (Bld) [Mass/Vol] 13.6 g/dL Critically low 14.0-18.0 [facility] Comment on above: Performed By: #### P T, PTT #### [facility] [address] [place] [address] Dr. Robert Almendarez IG # 0.02 10e3/ul Normal 0.00-0.03 [facility] Comment on above: Performed By: #### P T, PTT #### [facility] [address] [place] [address] Dr. Robert Almendarez IG % 0.3 % Normal 0.0-0.5 [facility] Comment on above: Performed By: #### P T, PTT #### [facility] [address] [place] [address] Dr. Robert Almendarez LYMPH # 2.4 103/ul Normal 1.2-3.8 [facility] Comment on above: Performed By: #### P T, PTT #### [facility] [address] [place] [address] Dr. Robert Almendarez Lymphocytes/100 WBC (Bld) 34.0 % Normal 20.5-60.0 [facility] Comment on above: Performed By: #### P T, PTT #### [facility] [address] [place] [address] Dr. Robert Almendarez MANUAL DIFF REQ NO Normal [facility] Comment on above: Performed By: #### P T, PTT #### [facility] [address] [place] [address] Dr. Robert Almendarez MCH (RBC) [Entitic mass] 29.7 pg Normal 25.9-34.0 [facility] Comment on above: Performed By: #### P T, PTT #### [facility] [address] [place] [address] Dr. Robert Almendarez MCHC (RBC) [Mass/Vol] 33.9 g/dL Normal 29.9-35.2 [facility] Comment on above: Performed By: #### P T, PTT #### [facility] [address] [place] [address] Dr. Robert Almendarez MCV (RBC) [Entitic vol] 87.6 fL Normal 80.0-94.0 [facility] Comment on above: Performed By: #### P T, PTT #### [facility] [address] [place] [address] Dr. Robert Almendarez MONO # 0.8 103/ul Normal 0.3-0.8 [facility] Comment on above: Performed By: #### P T, PTT #### [facility] [address] [place] [address] Dr. Robert Almendarez Monocytes/100 WBC (Bld) 11.2 % Normal 1.7-12.0 [facility] Comment on above: Performed By: #### P T, PTT #### [facility] [address] [place] [address] Dr. Robert Almendarez NEUT # 3.7 103/ul Normal 1.4-6.5 [facility] Comment on above: Performed By: #### P T, PTT #### [facility] [address] [address] [address] Robert Almendarez Neutrophils/100 WBC (Bld) 52.9 % Normal 43.0-75.0 [facility] Comment on above: Performed By: #### P T, PTT #### [facility] [address] [address] [address] Robert Almendarez Platelet mean volume (Bld) [Entitic vol] 10.4 fL Normal 9.5-13.5 [facility] Comment on above: Performed By: #### P T, PTT #### [facility] [address] [place] [address] Dr. Robert Almendarez PLT 260 103/ul Normal 150-450 [facility] Comment on above: Performed By: #### P T, PTT #### [facility] [address] [place] [address] Dr. Robert Almendarez RBC 4.58 106/ul Critically low 4.70-6.10 [facility] Comment on above: Performed By: #### P T, PTT #### [facility] [address] [place] [address] Dr. Robert Almendarez WBC 6.9 103/ul Normal 4.0-11.0 [facility] Comment on above: Performed By: #### P T, PTT #### [facility] [address] [place] [address] Dr. Robert Almendarez PHOSPHORUSon 05-14-2022 Phosphate [Mass/Vol] 1.8 mg/dL Critically low 2.6-4.7 [facility] Comment on above: Performed By: #### P T, PTT #### [facility] [address] [place] [address] Dr. Robert Almendarez PROF 14(COMP METB)on Albumin [Mass/Vol] 4.0 g/dL Normal 3.4-5.0 [facility] Comment on above: Performed By: #### P T, PTT #### [facility] [address] [address] [address] Robert Almendarez Albumin/Globulin [Mass ratio] 1.1 {ratio} Normal [facility] Comment on above: Performed By: #### P T, PTT #### [facility] [address] [address] [address] Robert Almendarze ALP [Catalytic activity/Vol] 85 U/L Normal 46-116 [facility] Comment on above: Performed By: #### P T, PTT #### [facility] [address] [address] [address] Robert Almendarez ALT [Catalytic activity/Vol] 24 U/L Normal 16-63 [facility] Comment on above: Performed By: #### P T, PTT #### [facility] [address] [place] [address] Dr. Robert Almendarez Anion gap [Moles/Vol] 9.0 mmol/L Normal [facility] Comment on above: Performed By: #### P T, PTT #### [facility] [address] [address] [address] Robert Almendarez AST [Catalytic activity/Vol] 14 U/L Critically low 15-37 [facility] Comment on above: Performed By: #### P T, PTT #### [facility] [address] [place] [address] Dr. Robert Almendarez Bilirubin [Mass/Vol] 0.5 mg/dL Normal 0.2-1.0 [facility] Comment on above: Performed By: #### P T, PTT #### [facility] [address] [address] [address] Robert Almendarez Calcium [Mass/Vol] 11.0 mg/dL Critically high 8.5-10.1 [facility] Comment on above: Performed By: #### P T, PTT #### [facility] [address] [address] [address] Robert Almendarez Chloride [Moles/Vol] 105 mmol/L Normal 98-107 [facility] Comment on above: Performed By: #### P T, PTT #### [facility] [address] [address] [address] Robert Almendarez CO2 [Moles/Vol] 28.9 mmol/L Normal 21.0-32.0 [facility] Comment on above: Performed By: #### P T, PTT #### [facility] [address] [address] [address] Robert Almendarez Creatinine [Mass/Vol] 1.43 mg/dL Critically high 0.70-1.30 [facility] Comment on above: Performed By: #### P T, PTT #### [facility] [address] [address] [address] Robert Almendarez EGFR-AF MOZAMBICAN >60 Normal >=60 [facility] Comment on above: Performed By: #### P T, PTT #### [facility] [address] [address] [address] Robert Almendarez EGFR-NON AF MOZAMBICAN 50 mL/min/1.73m2 Critically low >=60 [facility] Comment on above: Performed By: #### P T, PTT #### [facility] [address] [address] [address] Robert Almendarez Globulin (S) [Mass/Vol] 3.5 g/dL Normal [facility] Comment on above: Performed By: #### P T, PTT #### [facility] [address] [address] [address] Robert Almendarez Glucose [Mass/Vol] 147 mg/dL Critically high 74-106 [facility] Comment on above: Performed By: #### P T, PTT #### [facility] [address] [address] [address] Robert Almendarez Potassium [Moles/Vol] 3.9 mmol/L Normal 3.5-5.1 [facility] Comment on above: Performed By: #### P T, PTT #### [facility] [address] [address] [address] Robert Almendarez Protein [Mass/Vol] 7.5 g/dL Normal 6.4-8.2 [facility] Comment on above: Performed By: #### P T, PTT #### [facility] [address] [place], [place] [address] Dr. Robert Almendarez Sodium [Moles/Vol] 139 mmol/L Normal 136-145 [facility] Comment on above: Performed By: #### P T, PTT #### [facility] [address] [place], [place] [address] Dr. Robert Almendarez Urea nitrogen [Mass/Vol] 27.0 mg/dL Critically high 7.0-18.0 [facility] Comment on above: Performed By: #### P T, PTT #### [facility] [address] [place], [place] [address] Dr. Robert Almendarez Urea nitrogen/Creatinine [Mass ratio] 18.9 mg/mg Normal [facility] Comment on above: Performed By: #### P T, PTT #### [facility] [address] [address] [address] Robert Almendarez Basic Metabolic Panelon 12-2 Anion gap [Moles/Vol] 10 mmol/L 9 - 17 mmol/L [employer] [place] Calcium [Mass/Vol] 12.0 mg/dL High 8.6 - 10. 4 mg/dL [employer] [place] Chloride [Moles/Vol] 103 mmol/L 98 - 10 7 mmol/L [facility] CO2 [Moles/Vol] 25 mmol/L 20 - 31 mmol/L [employer] [place] Creatinine [Mass/Vol] 1.39 mg/dL High 0.70 - 1.20 mg/dL [employer] [place] GFR/1.73 sq M.predicted MDRD (S/P/Bld) [Vol rate/Area] 57 mL/min/{1.73_m2} Low - PINF [employer] [place] Comment on above: Effective Feb 24, 2022 [...] 171 mg/dL High 70 - 99 mg/dL [facility] Interpretation and review of laboratory results Abnormal [facility] Potassium [Moles/Vol] 4.1 mmol/L 3.7 - 5.3 mmol/L [facility] Sodium [Moles/Vol] 138 mmol/L 135 - 144 mmol/L [facility] Urea nitrogen (BldV) [Mass/Vol] 25 mg/dL High 8 - 23 mg/dL [facility] Urea nitrogen/Creatinine (Bld) [Mass ratio] 18 9 - 20 [facility] IZI-collecte PSA Screeningon 05-13-2022 [facility] Basic Metabolic Panelon 02-23 Anion gap [Moles/Vol] 6 mmol/L Low 9 - 17 mmol/L [facility] Calcium [Mass/Vol] 10.6 mg/dL High 8.6 - 10. 4 mg/dL [facility] Chloride [Moles/Vol] 104 mmol/L 98 - 10 7 mmol/L [facility] CO2 [Moles/Vol] 25 mmol/L 20 - 31 mmol/L [facility] Creatinine [Mass/Vol] 1.31 mg/dL High 0.70 - 1.20 mg/dL [facility] GFR/1.73 sq M.predicted MDRD (S/P/Bld) [Vol rate/Area] - PINF [facility] Comment on above: Effective Feb 24, [...] 202 mg/dL High 70 - 99 mg/dL [facility] Interpretation and review of laboratory results Abnormal [facility] Potassium [Moles/Vol] 4.1 mmol/L 3.7 - 5.3 mmol/L [facility] Sodium [Moles/Vol] 135 mmol/L 135 - 144 mmol/L [facility] Urea nitrogen (BldV) [Mass/Vol] 27 mg/dL High 8 - 23 mg/dL [facility] Urea nitrogen/Creatinine (Bld) [Mass ratio] 21 High 9 - 20 [facility] A1C with Estimated Average G marcos 01-09-2022 Glucose [Mass/Vol] 160 mg/dL Normal [facility] Comment on above: Result Comment: PERF ORMED BY: [place] [address] PATHOLOGIST LADDER OPERATOR YURI ORTA M.D. Performed By: #### B FACULTY RESEARCH PHYSICIAN, BMP, LIPID, CBC, A1C WT eA #### [place] [id number] [facility] HbA1c (Bld) [Mass fraction] 7.2 % High 4.3-5.6 [facility] Comment on above: Result Comment: Incr eased risk for diabetes: 5.7 - 6.4 diabetes: >6.4 glycemic control for adults with diabetes: <7.0 Performed By: #### B FACULTY RESEARCH PHYSICIAN, BMP, LIPID, CBC, A1C WTH eA #### [address] B-Type Natriuretic Peptideon 01-09-2022 Natriuretic peptide B (Bld) [Mass/Vol] 90.0 pg/mL Normal 5-100 [facility] Comment on above: Result Comment: PERF ORMED BY: [place] [address] PATHOLOGIST LADDER OPERATOR YURI ORTA M.D. Performed By: #### B FACULTY RESEARCH PHYSICIAN, BMP, LIPID, CBC, A1C WTH eA #### [place] [id number] [facility] Basic Metabolic Panelon 08- Calcium [Mass/Vol] 11.0 mg/dL High 8.2-10.2 [facility] Comment on above: Performed By: #### B FACULTY RESEARCH PHYSICIAN, BMP, LIPID, CBC, A1C WTH eA #### [address] [place] [address] [place] Chloride [Moles/Vol] 106 mmol/L Normal 95-114 [facility] Comment on above: Performed By: #### B FACULTY RESEARCH PHYSICIAN, BMP, LIPID, CBC, A1C WTH eA #### [facility] [address] CO2 [Moles/Vol] 25.5 mmol/L Normal 22.0-30.0 [facility] Comment on above: Performed By: #### B FACULTY RESEARCH PHYSICIAN, BMP, LIPID, CBC, A1C WTH eA #### [facility] [address] Creatinine [Mass/Vol] 1.25 mg/dL Normal 0.64-1.27 [facility] Comment on above: Performed By: #### B FACULTY RESEARCH PHYSICIAN, BMP, LIPID, CBC, A1C WTH eA #### [address] Estimated GFR ( Lucia > 60 [facility] Comment on above: Result Comment: GFR estimated reference range: According to KDOQI guidelines, <60 ml/min/1.73m2 is sufficient to diagnose a patient with chronic kidney disease. Performed By: #### B FACULTY RESEARCH PHYSICIAN, BMP, LIPID, CBC, A1C WTH eA #### [address] Estimated GFR (Non- Am 59 [facility] Comment on above: Performed By: #### B FACULTY RESEARCH PHYSICIAN, BMP, LIPID, CBC, A1C WTH eA #### [address] Glucose [Mass/Vol] 120 mg/dL High 70-100 [facility] Comment on above: Result Comment: [place]var[place] Glucose Reference Range is dependent on time and content of last meal. Glucose of more than 200 mg/dL in a nonstressed, ambulatory subject supports the diagnosis of Diabetes Mellitus. ADA recommended reference range Performed By: #### B FACULTY RESEARCH PHYSICIAN, BMP, LIPID, CBC, A1C WTH eA #### [address] Potassium [Moles/Vol] 4.3 mmol/L Normal 3.5-5.1 [facility] Comment on above: Performed By: #### B FACULTY RESEARCH PHYSICIAN, BMP, LIPID, CBC, A1C WT eA #### [facility] [address] Sodium [Moles/Vol] 136 mmol/L Normal 136-146 [facility] Comment on above: Performed By: #### B FACULTY RESEARCH PHYSICIAN, BMP, LIPID, CBC, A1C WT eA #### [facility] [address] Urea nitrogen [Mass/Vol] 22 mg/dL Normal 9-23 [facility] Comment on above: Performed By: #### B FACULTY RESEARCH PHYSICIAN, BMP, LIPID, CBC, A1C WT eA #### [facility] [address] Basophils Auto (Bld) [#/Vol] Ordered By: Alma Kan on 01-09-2022 Basophils (Bld) [#/Vol] 0.0 10*3/uL 0.0-0.2 [facility] Basophils/100 WBC Auto (Bld) Ordered By: Alma Kan on 01-09-2022 Basophils/100 WBC (Bld) 0.3 % . [facility] Blood hemoglobin measurement (mass/volume)Ordered By: Alma Kan on 01-09-2022 Hemoglobin (Bld) [Mass/Vol] 13.6 g/dL 13.0-17.0 [facility] Blood leukocytes automated c ount (number/volume)Ordered By: Alma Kan on 01-09-2022 WBC (Bld) [#/Vol] 7.7 10*3/uL 4.5-11.0 [facility] Cholesterol [Mass/volume] in Serum or PlasmaOrdered By: Alma Kan on 01-09-2022 Cholesterol [Mass/Vol] 157 mg/dL 140-200 [facility] Comment on above: Chol less than 200 m g/dl low risk Chol 201-239 mg/dl borderline risk Chol 240 mg/dl and greater high risk Cholesterol in LDL Calc [Mas s/Vol]Ordered By: Alma Kan on 01-09-2022 Cholesterol in LDL [Mass/Vol] 86 mg/dL 0-100 [facility] Comment on above: LDL ATP III CLASSIFI CATION LDL less than 100 mg/dL Optimal LDL 100-129 mg/dL Near or above optimal LDL 130-159 mg/dL Borderline high LDL 160-189 mg/dL High LDL greater than 189 mg/dL Very high Cholesterol in VLDL Calc [Ma ss/Vol]Ordered By: Alma Kan on 01-09-2022 Cholesterol in VLDL [Mass/Vol] 45 mg/dL [facility] Complete Blood Count Auto Di ffon 01-09-2022 Basophils (Bld) [#/Vol] 0.0 10*3/uL Normal 0.0-0.2 [facility] Comment on above: Result Comment: PERF ORMED BY: [place] [address] PATHOLOGIST LADDER OPERATOR YURI ORTA M.D. Performed By: #### B FACULTY RESEARCH PHYSICIAN, BMP, LIPID, CBC, A1C WTH eA #### [address] Basophils/100 WBC (Bld) 0.3 % Normal . [facility] Comment on above: Performed By: #### B FACULTY RESEARCH PHYSICIAN, BMP, LIPID, CBC, A1C WTH eA #### [address] Eosinophils (Bld) [#/Vol] 0.1 10*3/uL Normal 0.0-0.45 [facility] Comment on above: Performed By: #### B FACULTY RESEARCH PHYSICIAN, BMP, LIPID, CBC, A1C WTH eA #### [address] Eosinophils/100 WBC (Bld) 1.9 % Normal . [facility] Comment on above: Performed By: #### B FACULTY RESEARCH PHYSICIAN, BMP, LIPID, CBC, A1C WTH eA #### [address] Erythrocyte distribution width (RBC) [Ratio] 13.0 % Normal 12.0-14.8 [facility] Comment on above: Performed By: #### B FACULTY RESEARCH PHYSICIAN, BMP, LIPID, CBC, A1C WTH eA #### [address] Hematocrit (Bld) [Volume fraction] 40.8 % Normal 38.8-50.0 [facility] Comment on above: Performed By: #### B FACULTY RESEARCH PHYSICIAN, BMP, LIPID, CBC, A1C WTH eA #### [address] Hemoglobin (Bld) [Mass/Vol] 13.6 g/dL Normal 13.0-17.0 [facility] Comment on above: Performed By: #### B FACULTY RESEARCH PHYSICIAN, BMP, LIPID, CBC, A1C WTH eA #### [address] Lymphocytes (Bld) [#/Vol] 3.0 10*3/uL Normal 1.00-4.8 [facility] Comment on above: Performed By: #### B FACULTY RESEARCH PHYSICIAN, BMP, LIPID, CBC, A1C WTH eA #### [address] Lymphocytes/100 WBC (Bld) 38.9 % Normal . [facility] Comment on above: Performed By: #### B FACULTY RESEARCH PHYSICIAN, BMP, LIPID, CBC, A1C WTH eA #### [address] MCH (RBC) [Entitic mass] 30.1 pg Normal 27.5-35.2 [facility] Comment on above: Performed By: #### B FACULTY RESEARCH PHYSICIAN, BMP, LIPID, CBC, A1C WTH eA #### [address] MCV (RBC) [Entitic vol] 90.2 fL Normal 83.5-101 [facility] Comment on above: Performed By: #### B FACULTY RESEARCH PHYSICIAN, BMP, LIPID, CBC, A1C WTH eA #### [address] Mean Corpuscular HGB Conc 33.3 g/dL Normal 32.5-35.6 [facility] Comment on above: Performed By: #### B FACULTY RESEARCH PHYSICIAN, BMP, LIPID, CBC, A1C WTH eA #### [address] [place] [address] [place] [address] [place] Monocytes (Bld) [#/Vol] 0.7 10*3/uL Normal 0.0-0.8 [facility] Comment on above: Performed By: #### B FACULTY RESEARCH PHYSICIAN, BMP, LIPID, CBC, A1C WTH eA #### [address] Monocytes/100 WBC (Bld) 8.6 % Normal . [facility] Comment on above: Performed By: #### B FACULTY RESEARCH PHYSICIAN, BMP, LIPID, CBC, A1C WTH eA #### [place] [address] [place] Neutrophils (Bld) [#/Vol] 3.9 10*3/uL Normal 1.8-7.7 [facility] Comment on above: Performed By: #### B FACULTY RESEARCH PHYSICIAN, BMP, LIPID, CBC, A1C WTH eA #### [address] Neutrophils/100 WBC (Bld) 50.3 % Normal . [facility] Comment on above: Performed By: #### B FACULTY RESEARCH PHYSICIAN, BMP, LIPID, CBC, A1C WTH eA #### [place] [address] [place] Nucleated RBC/100 WBC (Bld) [Ratio] 0.1 % Normal 0-0.5 [facility] Comment on above: Performed By: #### B FACULTY RESEARCH PHYSICIAN, BMP, LIPID, CBC, A1C WTH eA #### [place] [address] [place] Platelet mean volume (Bld) [Entitic vol] 9.4 fL Normal 6.6-10.1 [facility] Comment on above: Performed By: #### B FACULTY RESEARCH PHYSICIAN, BMP, LIPID, CBC, A1C WTH eA #### [place] [address] [place] Platelets (Bld) [#/Vol] 306 10*3/uL Normal 150-450 [facility] Comment on above: Performed By: #### B FACULTY RESEARCH PHYSICIAN, BMP, LIPID, CBC, A1C WTH eA #### [address] [place] [address] [place] RBC (Bld) [#/Vol] 4.52 10*6/uL Normal 3.90-5.60 [facility] Comment on above: Performed By: #### B FACULTY RESEARCH PHYSICIAN, BMP, LIPID, CBC, A1C WTH eA #### [facility] [address] [place] [address] [place] WBC (Bld) [#/Vol] 7.7 10*3/uL Normal 4.5-11.0 [facility] Comment on above: Performed By: #### B FACULTY RESEARCH PHYSICIAN, BMP, LIPID, CBC, A1C WT eA #### [facility] [address] Creatinine and Glomerular fi ltration rate.predicted panel (S/P/Bld)Ordered By: Alma Kan on 01-09-2022 Creatinine [Mass/Vol] 1.25 mg/dL 0.64-1.27 [facility] Eosinophils Auto (Bld) [#/Vo l]Ordered By: Alma Kan on 01-09-2022 Eosinophils (Bld) [#/Vol] 0.1 10*3/uL 0.0-0.45 [facility] Eosinophils/100 WBC Auto (Bl d)Ordered By: Alma Kan on 01-09-2022 Eosinophils/100 WBC (Bld) 1.9 % . [facility] Erythrocyte distribution wid th Auto (RBC) [Ratio]Ordered By: Alma Kan on 01-09-2022 Erythrocyte distribution width (RBC) [Ratio] 13.0 % 12.0-14.8 [facility] Estimated glomerular filtrat ion rate (GFR) non- AmericanOrdered By: Alma Kan on 01-09-2022 GFR/1.73 sq M.predicted among non-blacks MDRD (S/P/Bld) [Vol rate/Area] 59 mL/Min [facility] Glucose mean value [Mass/vol ume] in Blood Estimated from glycated hemoglobinOrdered By: Alma Kan on 01-09-2022 Average glucose Estimated from glycated hemoglobin (Bld) [Mass/Vol] 160 mg/dL [facility] Hematocrit Auto (Bld) [Volum e fraction]Ordered By: Alma Kan on 01-09-2022 Hematocrit (Bld) [Volume fraction] 40.8 % 38.8-50.0 [facility] Hemoglobin A1c percentageOrd ered By: Alma Kan on 01-09-2022 HbA1c (Bld) [Mass fraction] 7.2 % 4.3-5.6 [facility] Comment on above: Increased risk for d iabetes: 5.7 - 6.4 diabetes: >6.4 glycemic control for adults with diabetes: <7.0 Laboratory - Chemistry and C hemistry - challengeOrdered By: Alma Kan on 01-09-2022 Natriuretic peptide B (Bld) [Mass/Vol] 90.0 pg/mL 5-100 [facility] Laboratory - Hematology and Cell countsOrdered By: Alma Kan on 01-09-2022 Nucleated RBC/100 WBC (Bld) [Ratio] 0.1 % 0-0.5 [facility] Lipid Panelon 01-09-2022 Cholesterol [Mass/Vol] 157 mg/dL Normal 140-200 [facility] Comment on above: Result Comment: Chol less than 200 mg/dl low risk Chol 201-239 mg/dl borderline risk Chol 240 mg/dl and greater high risk Performed By: #### B FACULTY RESEARCH PHYSICIAN, BMP, LIPID, CBC, A1C WT eA #### [facility] [address] Cholesterol in HDL [Mass/Vol] 26 mg/dL Low 29-71 [facility] Comment on above: Result Comment: HDL CHOL ATP-III CLASSIFICATION Cardiovascular Risk HDL > or equal to 60 mg/dL LOW HDL < 40 mg/dL HIGH Performed By: #### B FACULTY RESEARCH PHYSICIAN, BMP, LIPID, CBC, A1C WT eA #### [facility] [address] [place] [id number] [facility] Cholesterol.total/Shi sterol in HDL [Mass ratio] 6.0 {ratio} Normal <5.0 [facility] Comment on above: Result Comment: PERF ORMED BY: [facility] [address] [place] [address] PATHOLOGIST LADDER OPERATOR YURI ORTA M.D. Performed By: #### B FACULTY RESEARCH PHYSICIAN, BMP, LIPID, CBC, A1C WTH eA #### [facility] [address] LDL Cholesterol,Calculated 86 mg/dL Normal 0-100 [facility] Comment on above: Result Comment: LDL ATP III CLASSIFICATION LDL less than 100 mg/dL Optimal LDL 100-129 mg/dL Near or above optimal LDL 130-159 mg/dL Borderline high LDL 160-189 mg/dL High LDL greater than 189 mg/dL Very high Performed By: #### B FACULTY RESEARCH PHYSICIAN, BMP, LIPID, CBC, A1C WTH eA #### [facility] [address] Triglyceride w/Reflex 227 mg/dL High 35-149 [facility] Comment on above: Result Comment: TRIG ATP III CLASSIFICATION TRIG less than 150 mg/dL Normal TRIG 150-199 mg/dL Borderline high TRIG 200-500 mg/dL High TRIG greater than 500 mg/dL Very high Standard traceable to the Center for Disease Conrtrol and Prevention (CDC) test method. Performed By: #### B FACULTY RESEARCH PHYSICIAN, BMP, LIPID, CBC, A1C WTH eA #### [facility] [address] VLDL CHOLESTEROL 45 mg/dL Normal [facility] Comment on above: Performed By: #### B FACULTY RESEARCH PHYSICIAN, BMP, LIPID, CBC, A1C WTH eA #### [facility] [address] Lymphocytes Auto (Bld) [#/Vo l]Ordered By: Alma Kan on 01-09-2022 Lymphocytes (Bld) [#/Vol] 3.0 10*3/uL 1.00-4.8 [facility] Lymphocytes/100 WBC Auto (Bl d)Ordered By: Alma Kan on 01-09-2022 Lymphocytes/100 WBC (Bld) 38.9 % . [facility] MCH Auto (RBC) [Entitic mass ]Ordered By: Alma Kan on 01-09-2022 MCH (RBC) [Entitic mass] 30.1 pg 27.5-35.2 [facility] MCHC Auto (RBC) [Mass/Vol]Or dered By: Alma Kan on 01-09-2022 MCHC (RBC) [Mass/Vol] 33.3 g/dL 32.5-35.6 [facility] MCV Auto (RBC) [Entitic vol] Ordered By: Alma Kan on 01-09-2022 MCV (RBC) [Entitic vol] 90.2 fL 83.5-101 [facility] Monocytes Auto (Bld) [#/Vol] Ordered By: Alma Kan on 01-09-2022 Monocytes (Bld) [#/Vol] 0.7 10*3/uL 0.0-0.8 [facility] Monocytes/100 WBC Auto (Bld) Ordered By: Alma Kan on 01-09-2022 Monocytes/100 WBC (Bld) 8.6 % . [facility] Neutrophils Auto (Bld) [#/Vo l]Ordered By: Alma Kan on 01-09-2022 Neutrophils (Bld) [#/Vol] 3.9 10*3/uL 1.8-7.7 [facility] Neutrophils/100 WBC Auto (Bl d)Ordered By: Alma Kan on 01-09-2022 Neutrophils/100 WBC (Bld) 50.3 % . [facility] No Panel InformationOrdered By: Alma Kan on 01-09-2022 Estimated GFR () > 60 mL/Min [facility] Comment on above: GFR estimated refere nce range: According to KDOQI guidelines, <60 ml/min/1.73m2 is sufficient to diagnose a patient with chronic kidney disease. Pharmacy Creatinine Clearance (Chem N/A [facility] Platelet mean volume Auto (B ld) [Entitic vol]Ordered By: Alma Kan on 01-09-2022 Platelet mean volume (Bld) [Entitic vol] 9.4 fL 6.6-10.1 [facility] [facility] Platelets Auto (Bld) [#/Vol] Ordered By: Alma Kan on 01-09-2022 Platelets (Bld) [#/Vol] 306 10*3/uL 150-450 [facility] RBC Auto (Bld) [#/Vol]Ordere d By: Alma Kan on 01-09-2022 RBC (Bld) [#/Vol] 4.52 10*6/uL 3.90-5.60 [facility] Serum or plasma calcium yaneth urement (mass/volume)Ordered By: Alma Kan on 01-09-2022 Calcium [Mass/Vol] 11.0 mg/dL 8.2-10.2 [facility] Serum or plasma chloride charity surement (moles/volume)Ordered By: Alma Kan on 01-09-2022 Chloride [Moles/Vol] 106 mmol/L 95-114 [facility] Serum or plasma glucose yaneth urement (mass/volume)Ordered By: Alma Kan on 01-09-2022 Glucose [Mass/Vol] 120 mg/dL 70-100 [facility] Comment on above: ADA recommended refe rence range Random Glucose Reference Range is dependent on time and content of last meal. Glucose of more than 200 mg/dL in a nonstressed, ambulatory subject supports the diagnosis of Diabetes Mellitus. Serum or plasma high density lipoprotein (HDL) cholesterol measurementOrdered By: Alma Kan on 01-09-2022 Cholesterol in HDL [Mass/Vol] 26 mg/dL 29-71 [facility] Comment on above: HDL CHOL ATP-III CLA SSIFICATION Cardiovascular Risk HDL > or equal to 60 mg/dL LOW HDL < 40 mg/dL HIGH Serum or plasma potassium me asurement (moles/volume)Ordered By: Alma Kan on 01-09-2022 Potassium [Moles/Vol] 4.3 mmol/L 3.5-5.1 [facility] Serum or plasma sodium measu rement (moles/volume)Ordered By: Alma Kan on 01-09-2022 Sodium [Moles/Vol] 136 mmol/L 136-146 [facility] Serum or plasma total carbon dioxide measurement (moles/volume)Ordered By: Alma Kan on 01-09-2022 CO2 [Moles/Vol] 25.5 mmol/L 22.0-30.0 [facility] Serum or plasma total choles terol/high density lipoprotein (HDL) cholesterol mass ratOrdered By: Alma Kan on 01-09-2022 Cholesterol.total/Shi sterol in HDL [Mass ratio] 6.0 {ratio} <5.0 [facility] Serum or plasma urea nitroge n measurement (mass/volume)Ordered By: Alma Kan on 01-09-2022 Urea nitrogen [Mass/Vol] 22 mg/dL 9 [facility] Triglyceride [Mass/volume] i n Serum or PlasmaOrdered By: Alma Kan on 01-09-2022 Triglyceride [Mass/Vol] 227 mg/dL 35-149 [facility] Comment on above: TRIG ATP III [...] unremarkable. Perirectal fat is normal in appearance. [facility] Radha Cummings MD - [...] lipoma in the left gluteus medius muscle. [employer] Phone: Radiology Study observation (narrative) [facility] Phone: CT ABDOMEN PELVIS WO CONTRAS T Additional Contrast? NoneOrdered By: Radha Cummings on 09-11-2021 [facility] Work Phone: Basic Metabolic Profon 06-17 (cont.) Normal [facility] Comment on above: Result Comment: Aver age GFR for 60-69 years old: 85 mL/min/1.73sq m Chronic Kidney Disease: <60 mL/min/1.73sq m Kidney failure: <15 mL/min/1.73sq m eGFR calculated using average adult body mass. Additional eGFR calculator available at: http://www.4Soils/multiple_crcl_2011.htm Performed By: #### B MEHUL, CDP #### [facility] [address] [place] [address] Marker Hand: Eder Herrera MD Anion gap [Moles/Vol] 11 mmol/L Normal 02-08 [facility] Comment on above: Performed By: #### B MEHUL, CDP #### [facility] [address] [place] [address] Marker Hand: Eder Herrera MD BUN/CRE Ratio 11 Normal 02-[address] [facility] Comment on above: Performed By: #### B MEHUL, CDP #### [facility] [address] [place] [address] Marker Hand: Eder Herrera MD Calcium [Mass/Vol] 9.4 mg/dL Normal 8.6-10.4 [facility] Comment on above: Performed By: #### B MEHUL, CDP #### [facility] [address] [place] [address] Marker Hand: Eder Herrera MD Chloride [Moles/Vol] 102 mmol/L Normal 98-107 [facility] Comment on above: Performed By: #### B MP, CDP #### [facility] [address] [place] [address] Marker Hand: Eder Herrera MD CO2 [Moles/Vol] 24 mmol/L Normal 20-31 [facility] Comment on above: Performed By: #### B MP, CDP #### [facility] [address] [place], [place] [phone] Marker Hand: Eder Herrera MD Creatinine [Mass/Vol] 1.19 mg/dL Normal 0.70-1.20 [facility] Comment on above: Performed By: #### B MP, CDP #### [facility] [address] [place], [place] [phone] Marker Hand: Eder Herrera MD GFR, Amer >60 Normal >60 [facility] Comment on above: Performed By: #### B MP, CDP #### [facility] [address] [place], [place] [phone] Marker Hand: Eder Herrera MD GFR,non Amer >60 Normal >60 [facility] Comment on above: Performed By: #### B MP, CDP #### [facility] [address] [place], [place] [phone] Marker Hand: Eder Herrera MD Glucose [Mass/Vol] 245 mg/dL High 70-99 [facility] Comment on above: Performed By: #### B MP, CDP #### [facility] [address] [place], [place] [phone] Marker Hand: Eder Herrera MD Potassium [Moles/Vol] 4.2 mmol/L Normal 3.7-5.3 [facility] Comment on above: Performed By: #### B MP, CDP #### [facility] [address] [place], [place] [phone] Marker Hand: Eder Herrera MD Sodium [Moles/Vol] 137 mmol/L Normal 135-144 [facility] Comment on above: Performed By: #### B MP, CDP #### [facility] [address] [place], [place] [phone] Marker Hand: Eder Herrera MD Urea nitrogen [Mass/Vol] 13 mg/dL Normal 8-23 [facility] Comment on above: Performed By: #### B MEHUL, CDP #### [facility] [address] [place] [address] Marker Hand: Eder Herrera MD Staging: NOT REPORTED Normal [facility] Comment on above: Performed By: #### B MEHUL, CDP #### [facility] [address] [place] [address] Marker Hand: Eder Herrera MD CBC with Diffon 06-17-2021 Abs. Basophil 0.10 k/uL Normal 0.0-0.[address] [facility] Comment on above: Performed By: #### B MEHUL, CDP #### [facility] [address] [place], [place] [phone] Marker Hand: Eder Herrera MD Abs.Neutrophil (Seg) 2.70 k/uL Normal 2.1-6.5 [facility] Comment on above: Performed By: #### B MEHUL, CDP #### [facility] [address] [place] [address] Marker Hand: Edre Herrera MD Auto Diff Performed YES Normal [facility] Comment on above: Performed By: #### B MEHUL, CDP #### [facility] [address] [place] [address] Marker Hand: Eder Herrera MD Basophils/100 WBC (Bld) 1 % Normal 0-2 [facility] Comment on above: Performed By: #### B MEHUL, CDP #### [facility] [address] [place], [place] [phone] Marker Hand: Eder Herrera MD Eosinophils (Bld) [#/Vol] 0.20 10*3/uL Normal 0.0-0.4 [facility] Comment on above: Performed By: #### B MEHUL, CDP #### [facility] [address] [place], [place] [phone] Marker Hand: Eder Herrear MD Eosinophils/100 WBC (Bld) 3 % Normal 0-5 [facility] Comment on above: Performed By: #### B MEHUL, CDP #### [facility] [address] [place], [place] [phone] Marker Hand: Eder Herrera MD Erythrocyte distribution width (RBC) [Ratio] 12.6 % Normal 12.1-15.2 [facility] Comment on above: Performed By: #### B MEHUL, CDP #### [facility] [address] [place], [place] [phone] Marker Hand: Eder Herrera MD Hematocrit (Bld) [Volume fraction] 34.3 % Low 41-53 [facility] Comment on above: Performed By: #### B MEHUL, CDP #### [facility] [address] [place], [place] [phone] Marker Hand: Eder Herrera MD Hemoglobin (Bld) [Mass/Vol] 11.6 g/dL Low 13.5-17.5 [facility] Comment on above: Performed By: #### B MEHUL, CDP #### [facility] [address] [place], [place] [phone] Marker Hand: Eder Herrera MD Lymphocytes (Bld) [#/Vol] 1.90 10*3/uL Normal 1.0-4.8 [facility] Comment on above: Performed By: #### B MEHUL, CDP #### [facility] [address] [place] [address] Marker Hand: Eder Herrera MD Lymphocytes/100 WBC (Bld) 34 % Normal 13-44 [facility] Comment on above: Performed By: #### B MEHUL, CDP #### [facility] [address] [place], [place] [phone] Marker Hand: Eder Herrera MD MCH (RBC) [Entitic mass] 29.6 pg Normal 26-34 [facility] Comment on above: Performed By: #### B MP, CDP #### [facility] [address] [place], [place] [phone] Marker Hand: Eder Herrera MD MCHC (RBC) [Mass/Vol] 33.7 g/dL Normal 31-37 [facility] Comment on above: Performed By: #### B MP, CDP #### [facility] [address] [place], [place] [phone] Marker Hand: Eder Herrera MD MCV (RBC) [Entitic vol] 87.9 fL Normal 80-100 [facility] Comment on above: Performed By: #### B MEHUL, CDP #### [facility] [address] [place], [place] [phone] Marker Hand: Eder Herrera MD Monocytes (Bld) [#/Vol] 0.80 10*3/uL Normal 0.0-1.0 [facility] Comment on above: Performed By: #### B MP, CDP #### [facility] [address] [place], [place] [phone] Marker Hand: Eder Herrera MD Monocytes/100 WBC (Bld) 15 % High 5-9 [facility] Comment on above: Performed By: #### B MP, CDP #### [facility] [address] [place] [address] Marker Hand: Eder Herrera MD Neutrophil (Seg) 47 % Normal 39-75 [facility] Comment on above: Performed By: #### B MP, CDP #### [facility] [address] [place], [place] [phone] Marker Hand: Eder Herrera MD Platelets (Bld) [#/Vol] 371 10*3/uL Normal 140-450 [facility] Comment on above: Performed By: #### B MEHUL, CDP #### [facility] [address] [place] [address] Marker Hand: Eder Herrera MD RBC (Bld) [#/Vol] 3.91 10*6/uL Low 4.5-5.9 [facility] Comment on above: Performed By: #### B MEHUL, CDP #### [facility] [address] [place] [address] Marker Hand: Eder Herrera MD WBC (Bld) [#/Vol] 5.7 10*3/uL Normal 3.5-11.0 [facility] Comment on above: Performed By: #### B MEHUL, CDP #### [facility] [address] [place] [address] Marker Hand: Eder Herrera MD Abs.Imm.Granulocyte NOT REPORTED Normal 0.00-0.30 [facility] Comment on above: Performed By: #### B MEHUL, CDP #### [facility] [address] [place] [address] Marker Hand: Eder Herrera MD Immature Granulocyte NOT REPORTED Normal 0 [facility] Comment on above: Performed By: #### B MEHUL, CDP #### [facility] [address] [place] [address] Marker Hand: Eder Herrera MD MPV NOT REPORTED Normal 6.0-12.0 [facility] Comment on above: Performed By: #### B MEHUL, CDP #### [facility] [address] [place] [address] Marker Hand: Eder Herrera MD NRBC Automated NOT REPORTED Normal [facility] Comment on above: Performed By: #### B MEHUL, CDP #### [facility] [address] [place] [address] Marker Hand: Eder Herrera MD Platelet Comment NOT REPORTED Normal [facility] Comment on above: Performed By: #### B MP, CDP #### [facility] [address] [place], [place] [phone] Marker Hand: Eder Herrera MD RBC morphology finding Nom (Bld) NOT REPORTED Normal [facility] Comment on above: Performed By: #### B MP, CDP #### [facility] [address] [place] [address] Marker Hand: Eder Herrera MD WBC Morphology NOT REPORTED Normal [facility] Comment on above: Performed By: #### B MP, CDP #### [facility] [address] [place] [address] Marker Hand: Eder Herrera MD Basic Metabolic Panelon Anion gap [Moles/Vol] 9 mmol/L 9 - 17 mmol/L [facility] Calcium [Mass/Vol] 8.8 mg/dL 8.6 - 10. 4 mg/dL [facility] Chloride [Moles/Vol] 101 mmol/L 98 - 10 7 mmol/L [facility] CO2 [Moles/Vol] 24 mmol/L 20 - 31 mmol/L [facility] Creatinine [Mass/Vol] 1.16 mg/dL 0.70 - 1.20 mg/dL [facility] GFR >60 >60 mL/min [facility] GFR Non- >60 >60 mL/min [facility] Glucose [Mass/Vol] 168 mg/dL High 70 - 99 mg/dL [facility] Interpretation and review of laboratory results Abnormal [facility] Potassium [Moles/Vol] 3.6 mmol/L Low 3.7 - 5.3 mmol/L [facility] Sodium [Moles/Vol] 134 mmol/L Low 135 - 144 mmol/L [facility] Urea nitrogen (BldV) [Mass/Vol] 18 mg/dL 8 - 23 mg/dL [facility] Urea nitrogen/Creatinine (Bld) [Mass ratio] 16 [facility] CBCon 06-01-2021 Hematocrit (Bld) [Volume fraction] 35.9 % Low 40.7 - 50.3 % [facility] Hemoglobin.gastrointest inal spec 1 Ql (Stl) 12.1 g/dL Low 13.0 - 17.0 g/dL [facility] Interpretation and review of laboratory results Abnormal [facility] MCH (RBC) [Entitic mass] 30.0 pg 25.2 - 33.5 pg [facility] MCHC (RBC) [Mass/Vol] 33.7 g/dL 28.4 - 34.8 g/dL [facility] MCV (RBC) [Entitic vol] 89.1 fL 82.6 - 102.9 fL [facility] NRBC Automated 0.0 0.0 per 100 WBC [facility] Platelet distribution width (Bld) [Ratio] 11.5 % Low 11.8 - 14.4 % [facility] Platelet mean volume (Bld) [Entitic vol] 10.4 fL 8.1 - 13.5 fL [facility] Platelets (Bld) [#/Vol] 178 10*3/uL [facility] RBC (Bld) [#/Vol] 4.03 10*6/uL Low 4.21 - 5.7 7 m/uL [facility] WBC (Bld) [#/Vol] 3.6 10*3/uL [facility] EKG Rhythm Stripon 2 [facility] Laboratory - Chemistry and C hemistry - challengeon 06-01-2021 GFR/1.73 sq M.predicted MDRD (S/P/Bld) [Vol rate/Area] [facility] Comment on above: Average GFR for 60-6 9 years old: 85 mL/min/1.73sq m Chronic Kidney Disease: <60 mL/min/1.73sq m Kidney failure: <15 mL/min/1.73sq m eGFR calculated using average adult body mass. Additional eGFR calculator available at: http://www.T-VIPS.TopLog/multiple_crcl_2011.htm Stage 1: Some kidney damage normal GFR Stage 2: Mild kidney damage GFR 60-89 Stage 3: Moderate kidney damage GFR 30-59 Stage 4: Severe kidney damage GFR 15-29 Stage 5: Severe kidney damage GFR <15 ESRD - chronic treatment by dialysis or transplant Basic Metabolic Panelon Anion gap [Moles/Vol] 12 mmol/L 9 - 17 mmol/L [facility] Calcium [Mass/Vol] 8.7 mg/dL 8.6 - 10. 4 mg/dL [facility] Chloride [Moles/Vol] 105 mmol/L 98 - 10 7 mmol/L [facility] CO2 [Moles/Vol] 24 mmol/L 20 - 31 mmol/L [facility] Creatinine [Mass/Vol] 1.59 mg/dL High 0.70 - 1.20 mg/dL [facility] GFR 54 mL/min Low >60 [facility] GFR Non- 44 mL/min Low >60 [facility] Glucose [Mass/Vol] 140 mg/dL High 70 - 99 mg/dL [facility] Interpretation and review of laboratory results Abnormal [facility] Potassium [Moles/Vol] 3.9 mmol/L 3.7 - 5.3 mmol/L [facility] Sodium [Moles/Vol] 141 mmol/L 135 - 144 mmol/L [facility] Urea nitrogen (BldV) [Mass/Vol] 21 mg/dL 8 - 23 mg/dL [facility] Urea nitrogen/Creatinine (Bld) [Mass ratio] 13 [facility] CBCon 05-31-2021 Hematocrit (Bld) [Volume fraction] 35.9 % Low 40.7 - 50.3 % [facility] Hemoglobin.gastrointest inal spec 1 Ql (Stl) 12.0 g/dL Low 13.0 - 17.0 g/dL [facility] Interpretation and review of laboratory results Abnormal [facility] MCH (RBC) [Entitic mass] 30.3 pg 25.2 - 33.5 pg [facility] MCHC (RBC) [Mass/Vol] 33.4 g/dL 28.4 - 34.8 g/dL [facility] MCV (RBC) [Entitic vol] 90.7 fL 82.6 - 102.9 fL [facility] NRBC Automated 0.0 0.0 per 100 WBC [facility] Platelet distribution width (Bld) [Ratio] 11.7 % Low 11.8 - 14.4 % [facility] Platelet mean volume (Bld) [Entitic vol] 10.6 fL 8.1 - 13.5 fL [facility] Platelets (Bld) [#/Vol] 188 10*3/uL [facility] RBC (Bld) [#/Vol] 3.96 10*6/uL Low 4.21 - 5.7 7 m/uL [facility] WBC (Bld) [#/Vol] 4.1 10*3/uL [facility] EKG Rhythm Stripon [place] [facility] Laboratory - Chemistry and C hemistry - challengeon 05-31-2021 GFR/1.73 sq M.predicted MDRD (S/P/Bld) [Vol rate/Area] [facility] Comment on above: Average GFR for 60-6 9 years old: 85 mL/min/1.73sq m Chronic Kidney Disease: <60 mL/min/1.73sq m Kidney failure: <15 mL/min/1.73sq m eGFR calculated using average adult body mass. Additional eGFR calculator available at: http://www.4Soils/multiple_crcl_2012.htm Stage 1: Some kidney damage normal GFR Stage 2: Mild kidney damage GFR 60-89 Stage 3: Moderate kidney damage GFR 30-59 Stage 4: Severe kidney damage GFR 15-29 Stage 5: Severe kidney damage GFR <15 ESRD - chronic treatment by dialysis or transplant Basic Metabolic Panelon Anion gap [Moles/Vol] 11 mmol/L 9 - 17 mmol/L [facility] Calcium [Mass/Vol] 8.8 mg/dL 8.6 - 10. 4 mg/dL [facility] Chloride [Moles/Vol] 101 mmol/L 98 - 10 7 mmol/L [facility] CO2 [Moles/Vol] 23 mmol/L 20 - 31 mmol/L [facility] Creatinine [Mass/Vol] 1.61 mg/dL High 0.70 - 1.20 mg/dL [facility] GFR 53 mL/min Low >60 [facility] GFR Non- 44 mL/min Low >60 [facility] Glucose [Mass/Vol] 114 mg/dL High 70 - 99 mg/dL [facility] Interpretation and review of laboratory results Abnormal [facility] Potassium [Moles/Vol] 3.5 mmol/L Low 3.7 - 5.3 mmol/L [facility] Sodium [Moles/Vol] 135 mmol/L 135 - 144 mmol/L [facility] Urea nitrogen (BldV) [Mass/Vol] 24 mg/dL High 8 - 23 mg/dL [facility] Urea nitrogen/Creatinine (Bld) [Mass ratio] 15 [facility] CBCon 05-30-2021 Hematocrit (Bld) [Volume fraction] 35.4 % Low 40.7 - 50.3 % [facility] Hemoglobin.gastrointest inal spec 1 Ql (Stl) 11.6 g/dL Low 13.0 - 17.0 g/dL [facility] Interpretation and review of laboratory results Abnormal [facility] MCH (RBC) [Entitic mass] 29.5 pg 25.2 - 33.5 pg [facility] MCHC (RBC) [Mass/Vol] 32.8 g/dL 28.4 - 34.8 g/dL [facility] MCV (RBC) [Entitic vol] 90.1 fL 82.6 - 102.9 fL [facility] NRBC Automated 0.0 0.0 per 100 WBC [facility] Platelet distribution width (Bld) [Ratio] 11.8 % 11.8 - 14.4 % [facility] Platelet mean volume (Bld) [Entitic vol] 10.7 fL 8.1 - 13.5 fL [facility] Platelets (Bld) [#/Vol] 208 10*3/uL [facility] RBC (Bld) [#/Vol] 3.93 10*6/uL Low 4.21 - 5.7 7 m/uL [facility] WBC (Bld) [#/Vol] 3.5 10*3/uL [facility] EKG Rhythm Stripon [facility] Laboratory - Chemistry and C hemistry - challengeon 05-30-2021 GFR/1.73 sq M.predicted MDRD (S/P/Bld) [Vol rate/Area] [facility] Comment on above: Average GFR for 60-6 9 years old: 85 mL/min/1.73sq m Chronic Kidney Disease: <60 mL/min/1.73sq m Kidney failure: <15 mL/min/1.73sq m eGFR calculated using average adult body mass. Additional eGFR calculator available at: http://www.T-VIPS.TopLog/multiple_crcl_2012.htm Stage 1: Some kidney damage normal GFR Stage 2: Mild kidney damage GFR 60-89 Stage 3: Moderate kidney damage GFR 30-59 Stage 4: Severe kidney damage GFR 15-29 Stage 5: Severe kidney damage GFR <15 ESRD - chronic treatment by dialysis or transplant Troponinon 05-30-2021 Interpretation and review of laboratory results Abnormal [facility] Troponin Interp [facility] RE[facility]ED [facility] NOT REPORTED <0.03 ng/mL [facility], [facility] Sensitivity 54 ng/L Critically high 0 - 22 ng/L [facility] Comment on above: High Sensitivity Troponin values cannot be compared with other Troponin methodologies. Patients with high levels of Biotin oral intake (i.e >5mg/day) may have falsely decreased Troponin levels. Samples collected within 8 hours of biotin intake may require additional information for diagnosis. [facility] XR HIP 2-3 VW W PELVIS LEFTo n 05-30-2021 No acute osseous abnormality in the pelvis or left hip. Mild degenerative changes. [facility] EXAMINATION: ONE X-RAY VIEW OF [...] are noted in the lower lumbar spine. [facility] Kerrie Elder DO - 05/30/2021 [...] pelvis or left hip. Mild degenerative changes. [employer] Work Phone: Radiology Study observation (narrative) [employer] Work Phone: XR HIP 2-3 VW W PELVIS LEFTO rdered By: Kerrie Elder on 05-30-2021 [facility] Work Phone: Basic Metabolic Panelon Anion gap [Moles/Vol] 14 mmol/L 9 - 17 mmol/L [facility] Calcium [Mass/Vol] 9.7 mg/dL 8.6 - 10. 4 mg/dL [facility] Chloride [Moles/Vol] 102 mmol/L 98 - 10 7 mmol/L [facility] CO2 [Moles/Vol] 23 mmol/L 20 - 31 mmol/L [facility] Creatinine [Mass/Vol] 1.54 mg/dL High 0.70 - 1.20 mg/dL [facility] GFR 56 mL/min Low >60 [facility] GFR Non- 46 mL/min Low >60 [facility] Glucose [Mass/Vol] 98 mg/dL 70 - 99 mg/dL [facility] Interpretation and review of laboratory results Abnormal [facility] Potassium [Moles/Vol] 3.2 mmol/L Low 3.7 - 5.3 mmol/L [facility] Sodium [Moles/Vol] 139 mmol/L 135 - 144 mmol/L [facility] Urea nitrogen (BldV) [Mass/Vol] 20 mg/dL 8 - 23 mg/dL [facility] Urea nitrogen/Creatinine (Bld) [Mass ratio] 13 [facility] Hematocrit (Bld) [Volume fraction] 39.5 % Low 40.7 - 50.3 % [facility] Hemoglobin.gastrointest inal spec 1 Ql (Stl) 13.1 g/dL 13.0 - 17.0 g/dL [facility] Interpretation and review of laboratory results Abnormal [facility] MCH (RBC) [Entitic mass] 29.6 pg 25.2 - 33.5 pg [facility] MCHC (RBC) [Mass/Vol] 33.2 g/dL 28.4 - 34.8 g/dL [facility] MCV (RBC) [Entitic vol] 89.4 fL 82.6 - 102.9 fL [facility] NRBC Automated 0.0 0.0 per 100 WBC [facility] Platelet distribution width (Bld) [Ratio] 11.8 % 11.8 - 14.4 % [facility] Platelet mean volume (Bld) [Entitic vol] 10.5 fL 8.1 - 13.5 fL [facility] Platelets (Bld) [#/Vol] 198 10*3/uL [facility] RBC (Bld) [#/Vol] 4.42 10*6/uL 4.21 - 5.7 7 m/uL [facility] WBC (Bld) [#/Vol] 4.4 10*3/uL [facility] procedure details panelon 05-29-2021 Cardiac Diagnostic Report Demographics Patient LAURA Cosby Date of Study 05/29/2021 Name Date of 1960 Gender Male Age 60 year(s) Race Room [id number]^ROSEMARIE Height: 72 inch, 182.88 cm Number Corporate [id number] Weight: 231 pounds, 104.8 kg ID # Patient [id number] BSA: 2.26 m^2 BMI: 31.33 kg/m^2 Acct # MR # [id number] Performing Alice Mars Physician Referring # Physician [...] Right coronary angiography. Contrast Material: - Isovue [id number] ml Fluoroscopy Time: Diagnostic: 4:07 minutes. Total: [...] + (more content not included)... PN T [facility] Alice Mars MD - 05/29/2021 Cardiac Diagnostic Report Demographics Patient LAURA Cosby Date of Study 05/29/2021 Name Date of 1960 Gender Male Age 60 year(s) Race Room [id number]^ALISHA^ALICE Height: 72 inch, 182.88 cm Number Corporate [id number] Weight: 231 pounds, 104.8 kg ID # Patient [id number] BSA: 2.26 m^2 BMI: 31.33 kg/m^2 Acct # MR # [id number] Performing Alice Mars Physician Referring # Physician [...] Right coronary angiography. Contrast Material: - Isovue 85602 ml Fluoroscopy Time: Diagnostic: 4:07 minutes. Total: [...] assessed as CCS III according to the [place] clinical classifica (more content not included)... [facility] Work Phone: [facility] Work Phone: [facility] [employer] Phone: EKG Rhythm Stripon [address] [facility] Glucose, Whole Bloodon 05-29 Glucose [Mass/Vol] 97 mg/dL 74 - 100 mg/dL [facility] Glucose [Mass/Vol] 94 mg/dL 74 - 100 mg/dL [facility] Laboratory - Chemistry and C hemistry - challengeon 05-29-2021 GFR/1.73 sq M.predicted MDRD (S/P/Bld) [Vol rate/Area] [facility] Comment on above: Average GFR for 60-6 9 years old: 85 mL/min/1.73sq m Chronic Kidney Disease: <60 mL/min/1.73sq m Kidney failure: <15 mL/min/1.73sq m eGFR calculated using average adult body mass. Additional eGFR calculator available at: http://www.4Soils/multiple_crcl_2012.htm Stage 1: Some kidney damage normal GFR Stage 2: Mild kidney damage GFR 60-89 Stage 3: Moderate kidney damage GFR 30-59 Stage 4: Severe kidney damage GFR 15-29 Stage 5: Severe kidney damage GFR <15 ESRD - chronic treatment by dialysis or transplant Lipid Panelon 05-29-2021 Cholesterol [Mass/Vol] 109 mg/dL <200 [facility] Comment on above: Cholesterol Guidelines: <200 Desirable 200-240 Borderline >240 Undesirable Cholesterol in HDL [Mass/Vol] 19 mg/dL Low >40 [facility] Comment on above: HDL Guidelines: <40 Undesirable 40-59 Borderline >59 Desirable Cholesterol in LDL [Mass/Vol] 67 mg/dL 0 - 130 mg/dL [facility] Comment on above: LDL Guidelines: <100 Desirable 100-129 Near to/above Desirable 130-159 Borderline >159 Undesirable Direct (measured) LDL and calculated LDL are not interchangeable tests. Cholesterol in VLDL [Mass/Vol] NOT REPORTED 1 - 30 mg/dL [facility] Cholesterol.total/Shi sterol in HDL [Mass ratio] 5.7 {ratio} High <5 [facility] Interpretation and review of laboratory results Abnormal [facility] Triglyceride [Mass/Vol] 117 mg/dL <150 M [facility] Comment on above: Triglyceride Guidelines: <150 Desirable 150-199 Borderline 200-499 High >499 Very high Based on AHA Guidelines for fasting triglyceride, February 2012. [facility] Troponinon 05-29-2021 Interpretation and review of laboratory results Abnormal [facility] Troponin Interp NOT REPORTED [facility] ealt Troponin T NOT REPORTED <0.03 ng/mL [facility] Troponin, High Sensitivity 58 ng/L Critically high 0 - 22 ng/L [facility] Comment on above: High Sensitivity Troponin values cannot be compared with other Troponin methodologies. Patients with high levels of Biotin oral intake (i.e >5mg/day) may have falsely decreased Troponin levels. Samples collected within 8 hours of biotin intake may require additional information for diagnosis. [facility] RENAL COMPLETEon 05-29-19 22 1. Bilateral uretera l jets are visualized. Urinary bladder grossly unremarkable. 2. Unremarkable renal ultrasound. No hydronephrosis. RECOMMENDATIONS: Unavailable [facility] CONSOLIDATED EXAMINATION: RETROPERITONEAL ULTRASOUND OF THE [...] not be obtained due to patient immobility. [facility] Ravinder Tinoco MD - 05/29/2021 EXAMINATION: [...] Unremarkable renal ultrasound. No hydronephrosis. RECOMMENDATIONS: Unavailable [employer] Work Phone: Radiology Study observation (narrative) [employer] Work Phone: RENAL COMPLETEOrdered By: Ravinder Corona on 05-29-2021 [employer] Work Phone: Basic Metabolic Panelon Anion gap [Moles/Vol] 11 mmol/L 9 - 17 mmol/L [employer] Calcium [Mass/Vol] 10.7 mg/dL High 8.6 - 10. 4 mg/dL [facility] Chloride [Moles/Vol] 101 mmol/L 98 - 10 7 mmol/L [facility] CO2 [Moles/Vol] 25 mmol/L 20 - 31 mmol/L [facility] Creatinine [Mass/Vol] 1.4 mg/dL High 0.70 - 1.20 mg/dL [facility] GFR >60 >60 mL/min [facility] GFR Non- 52 mL/min Low >60 [facility] Glucose [Mass/Vol] 97 mg/dL 70 - 99 mg/dL [facility] Interpretation and review of laboratory results Abnormal [facility] Potassium [Moles/Vol] 3.6 mmol/L Low 3.7 - 5.3 mmol/L [facility] Sodium [Moles/Vol] 137 mmol/L 135 - 144 mmol/L [facility] Urea nitrogen (BldV) [Mass/Vol] 21 mg/dL 8 - 23 mg/dL [facility] Urea nitrogen/Creatinine (Bld) [Mass ratio] 15 [facility] CBCon 05-28-2021 Hematocrit (Bld) [Volume fraction] 38.7 % Low 40.7 - 50.3 % [facility] Hemoglobin.gastrointest inal spec 1 Ql (Stl) 13.2 g/dL 13.0 - 17.0 g/dL [facility] Interpretation and review of laboratory results Abnormal [facility] MCH (RBC) [Entitic mass] 30.2 pg 25.2 - 33.5 pg [facility] MCHC (RBC) [Mass/Vol] 34.1 g/dL 28.4 - 34.8 g/dL [facility] MCV (RBC) [Entitic vol] 88.6 fL 82.6 - 102.9 fL [facility] NRBC Automated 0.0 0.0 per 100 WBC [facility] Platelet distribution width (Bld) [Ratio] 11.8 % 11.8 - 14.4 % [facility] Platelet mean volume (Bld) [Entitic vol] 10.2 fL 8.1 - 13.5 fL [facility] Platelets (Bld) [#/Vol] 220 10*3/uL [facility] RBC (Bld) [#/Vol] 4.37 10*6/uL 4.21 - 5.7 7 m/uL [facility] WBC (Bld) [#/Vol] 3.8 10*3/uL [facility] EKG 12 leadon 05-28-2021 Atrial Rate 71 BPM [facility] Work Phone: P [place] 27 degrees [employer] Work Phone: P-R Interval 132 ms [employer] Work Phone: Q-T Interval 406 ms [employer] Work Phone: QRS Duration 96 ms [employer] Work Phone: QTc Calculation (Bazett) 441 ms [employer] Work Phone: R [place] -15 degrees [employer] Work Phone: T [place] -82 degrees [employer] Work Phone: Ventricular Rate 71 BPM [employer] Work Phone: Poor data quality, interpretation may be adversely affected Normal sinus rhythm Left ventricular hypertrophy with repolarization abnormality Abnormal ECG When compared with ECG of 20-MAY-2021 15:00, Minimal criteria for Septal infarct are no longer Present Confirmed by Alma Kan MD ([id number]) on 05/28/2021 10:34:44 AM [facility] RADIOLOGY Alma Kan MD - 05/28/2021 Poor data quality, interpretation may be adversely affected Normal sinus rhythm Left ventricular hypertrophy with repolarization abnormality Abnormal ECG When compared with ECG of 20-MAY-2021 15:00, Minimal criteria for Septal infarct are no longer Present Confirmed by Alma Kan MD ([id number]) on 05/28/2021 10:34:44 AM [employer] Work Phone: [employer] Work Phone: EKG Rhythm Stripon [facility] Routine [facility] Echocardiogram complete 2D w ith doppler with coloron 05-28-2021 [facility] Transthoracic Echocardiography Report (TTE) Patient Name LAURA Date of Study 05/28/2021 PIOTR A Date of 1960 Gender Male Age 60 year(s) Race Room Number 0337 Height: 72 inch, 182.88 cm Corporate ID [id number] Weight: 231 pounds, 104.8 kg # Patient Acct [id number] BSA: 2.26 m^2 BMI: 31.33 # kg/m^2 MR # [id number] Electronic Tester Hilda Arango Interpreting Physician Alam Kan Fellow Referring Nurse Cassie Morejon, COURT RECORDER Practitioner Interpreting Referring Physician Fellow Type of Study TTE procedure:2D Echocardiogram, M-Mode, Doppler, Color Doppler. Procedure Date Date: 05/28/2021 Start: 10:54 AM [facility] Indications:Hypertens ion. History / Tech. Comments: [...] Lateral Wall E' velocity:0.08 m/s PN T [facility] Alma Kan MD - 05/28/[address] [facility] Transthoracic Echocardiography Report (TTE) Patient Name LAURA Date of Study 05/28/2021 PIOTR A Date of 1960 Gender Male Age 60 year(s) Race Room Number 0333 Height: 72 inch, 182.88 cm Corporate ID [id number] Weight: 231 pounds, 104.8 kg # Patient Acct [id number] BSA: 2.26 m^2 BMI: 31.33 # kg/m^2 MR # [id number] Electronic Tester Hilda Arango Interpreting Physician Alma Kan Fellow Referring Nurse Cassie Morejon [facility] Practitioner Interpreting Referring Physician Fellow Type of Study TTE procedure:2D Echocardiogram, M-Mode, Doppler, Color Doppler. Procedure Date Date: 05/28/2021 Start: 10:54 AM [facility] Indications:Hypertens ion. History / Tech. Comments: [...] 30.06 cm Lateral Wall E' velocity:0.08 m/s [employer] Work Phone: [employer] Work Phone: Glucose, Whole Bloodon 05-28 Glucose [Mass/Vol] 147 mg/dL High 74 - 100 mg/dL [facility] Interpretation and review of laboratory results Abnormal [facility] Glucose [Mass/Vol] 76 mg/dL 74 - 100 mg/dL [facility] Glucose [Mass/Vol] 129 mg/dL High 74 - 100 mg/dL [facility] Interpretation and review of laboratory results Abnormal [facility] Glucose [Mass/Vol] 77 mg/dL 74 - 100 mg/dL [facility] Glucose [Mass/Vol] 75 mg/dL 74 - 100 mg/dL [facility] Hemoglobin A1con 05-28-2021 Glucose [Mass/Vol] 137 mg/dL [facility] Comment on above: The ADA and AACC rec ommend providing the estimated average glucose result to permit better patient understanding of their HBA1c result. HbA1c (Bld) [Mass fraction] 6.4 % High 4.0 - 6.0 % [facility] Interpretation and review of laboratory results Abnormal [facility] Laboratory - Chemistry and C hemistry - challengeon 05-28-2021 GFR/1.73 sq M.predicted MDRD (S/P/Bld) [Vol rate/Area] [facility] Comment on above: Average GFR for 60-6 9 years old: 85 mL/min/1.73sq m Chronic Kidney Disease: <60 mL/min/1.73sq m Kidney failure: <15 mL/min/1.73sq m eGFR calculated using average adult body mass. Additional eGFR calculator available at: http://www.4Soils/multiple_crcl_2012.htm Stage 1: Some kidney damage normal GFR Stage 2: Mild kidney damage GFR 60-89 Stage 3: Moderate kidney damage GFR 30-59 Stage 4: Severe kidney damage GFR 15-29 Stage 5: Severe kidney damage GFR <15 ESRD - chronic treatment by dialysis or transplant Troponinon 05-28-2021 Interpretation and review of laboratory results Abnormal [facility] Troponin Interp NOT REPORTED [facility] Troponin T NOT REPORTED <0.03 ng/mL [facility] Troponin, High Sensitivity 60 ng/L Critically high 0 - 22 ng/L [facility] Comment on above: High Sensitivity Troponin values cannot be compared with other Troponin methodologies. Patients with high levels of Biotin oral intake (i.e >5mg/day) may have falsely decreased Troponin levels. Samples collected within 8 hours of biotin intake may require additional information for diagnosis. [facility] Basic Metabolic Panel w/ Ref willam to MGon 05-27-2021 Anion gap [Moles/Vol] 10 mmol/L 9 - 17 mmol/L [facility] Calcium [Mass/Vol] 10.9 mg/dL High 8.6 - 10. 4 mg/dL [facility] Chloride [Moles/Vol] 101 mmol/L 98 - 10 7 mmol/L [facility] CO2 [Moles/Vol] 26 mmol/L 20 - 31 mmol/L [facility] Creatinine [Mass/Vol] 1.24 mg/dL High 0.70 - 1.20 mg/dL [facility] GFR >60 >60 mL/min [facility] GFR Non- 59 mL/min Low >60 [facility] Glucose [Mass/Vol] 133 mg/dL High 70 - 99 mg/dL [facility] Interpretation and review of laboratory results Abnormal [facility] Potassium [Moles/Vol] 3.7 mmol/L 3.7 - 5.3 mmol/L [facility] Sodium [Moles/Vol] 137 mmol/L 135 - 144 mmol/L [facility] Urea nitrogen (BldV) [Mass/Vol] 19 mg/dL 8 - 23 mg/dL [facility] Urea nitrogen/Creatinine (Bld) [Mass ratio] 15 [facility] CBC auto differentialon Absolute Eos # 0.03 [facility] th Absolute Immature Granulocyte <0.03 [facility] Absolute Lymph # 0.78 Low [facility] alth Absolute Collier # 0.87 [facility] lth Basophils (Bld) [#/Vol] 0.03 10*3/uL [facility] Basophils/100 WBC (Bld) 1 % 0 - 2 % M [facility] Differential Type NOT REPORTED [facility] Eosinophils/100 WBC (Bld) 1 % 1 - 4 % [facility] Hematocrit (Bld) [Volume fraction] 37.5 % Low 40.7 - 50.3 % [facility] Hemoglobin.gastrointest inal spec 1 Ql (Stl) 12.6 g/dL Low 13.0 - 17.0 g/dL [facility] Immature granulocytes/100 WBC (Bld) 0 % 0 [facility] Interpretation and review of laboratory results Abnormal [facility] Lymphocytes/100 WBC (Bld) 15 % Low 24 - 43 % [facility] MCH (RBC) [Entitic mass] 30.1 pg 25.2 - 33.5 pg [facility] MCHC (RBC) [Mass/Vol] 33.6 g/dL 28.4 - 34.8 g/dL [facility] MCV (RBC) [Entitic vol] 89.5 fL 82.6 - 102.9 fL [facility] Monocytes/100 WBC (Bld) 17 % High 3 - 12 % M [facility] NRBC Automated 0.0 0.0 per 100 WBC [facility] Platelet distribution width (Bld) [Ratio] 11.7 % Low 11.8 - 14.4 % [facility] Platelet Estimate NOT REPORTED [facility] Platelet mean volume (Bld) [Entitic vol] 10.2 fL 8.1 - 13.5 fL [facility] Platelets (Bld) [#/Vol] 238 10*3/uL [facility] RBC (Bld) [#/Vol] 4.19 10*6/uL Low 4.21 - 5.7 7 m/uL [facility] RBC (Bld) [#/Vol] NOT REPORTED [facility] Segmented neutrophils/100 WBC (Bld) 67 % High 36 - 65 % [facility] Segs Absolute [facility] ([facility]ld) [#/Vol] 5.2 10*3/uL [facility] WBC (Bld) [#/Vol] NOT REPORTED [facility] Glucose, Whole Bloodon 05-27 Glucose [Mass/Vol] 146 mg/dL High 74 - 100 mg/dL [facility] Interpretation and review of laboratory results Abnormal [facility] Laboratory - Chemistry and C hemistry - challengeon 05-27-2021 GFR/1.73 sq M.predicted MDRD (S/P/Bld) [Vol rate/Area] [facility] Comment on above: Average GFR for 60-6 9 years old: 85 mL/min/1.73sq m Chronic Kidney Disease: <60 mL/min/1.73sq m Kidney failure: <15 mL/min/1.73sq m eGFR calculated using average adult body mass. Additional eGFR calculator available at: http://www.T-VIPS.TopLog/multiple_crcl_2011.htm Stage 1: Some kidney damage normal GFR Stage 2: Mild kidney damage GFR 60-89 Stage 3: Moderate kidney damage GFR 30-59 Stage 4: Severe kidney damage GFR 15-29 Stage 5: Severe kidney damage GFR <15 ESRD - chronic treatment by dialysis or transplant Troponinon 05-27-2021 Interpretation and review of laboratory results Abnormal [facility] Troponin Interp NOT REPORTED [facility] ealt Troponin T NOT REPORTED <0.03 ng/mL [facility] Troponin, High Sensitivity 45 ng/L High 0 - 22 ng/L [facility] Comment on above: High Sensitivity Troponin values cannot be compared with other Troponin methodologies. Patients with high levels of Biotin oral intake (i.e >5mg/day) may have falsely decreased Troponin levels. Samples collected within 8 hours of biotin intake may require additional information for diagnosis. [facility] XR CHEST (2 VW)on 05-27-2021 No acute cardiopulmonary process [facility] RIS CONSOLIDATED EXAMINATION: TWO XRAY VIEWS [...] is present. IMPRESSION: No acute cardiopulmonary process [employer] Work Phone: Radiology Study observation (narrative) [employer] [facility] Work Phone: XR CHEST (2 VW)Ordered By: Jn Saul on 05-27-2021 [employer] Work Phone: Coding Summary.on 08-30-2020 Coding Summary. CODING DATE: 08/30/2020 [facility] STATUS: Home (Routine DC) PAYOR: [facility] [employer] DESCRIPTION 5524 Level 4 Imaging without Contrast ADMIT DX: REASON FOR VISIT DX: I25.10 Atherosclerotic heart disease of [place] coronary artery without angina pectoris FINAL DX: PRINCIPAL: I25.10 Atherosclerotic heart disease of [place] coronary artery without angina pectoris SECONDARY: PYMT PROC APC STAT DESCRIPTION DOCTOR NAME DATE NOTE: The code number assigned matches the documented diagnosis and / or procedure in the patient's chart. However, the narrative phrase printed from the coding software may appear abbreviated, or result in slightly different terminology. Coded By: Libra De La O CphT Date Saved: 08/30/2020 10:57 am Normal [facility] Consent for Treatmenton Consent for Treatment [id number] .[id number]:127 Normal [facility] Echo Transthoracic Completeo n 08-28-2020 Echo Transthoracic Complete Echocardiology Procedure Exam Date/Time Accession # Ordering Echo Transthoracic 08/28/2020 11:32 EDT [id number] Helder GREENBERG, Antonio Lehman Complete CPT code [id number] Reason for Exam (Echo Transthoracic Complete) CAD;CAD [...] MD Transcribed by: viji Technologist: CARI Tan [facility] Otheron 07-25-2020 Casts UA NOT REPORTED /LPF [facility] Work Phone: Urinalysis with Microscopico n 07-25-2020 Amorphous, UA NOT REPORTED None [facility] Work Phone: Bacteria, UA TRACE Abnormal None [facility] Work Phone: Bilirubin Urine Negative NEGATIVE [facility] Work Phone: Color, UA YELLOW YELLOW [facility] Work Phone: Crystals, UA NOT REPORTED None /HPF ESKY [facility] Work Phone: Epithelial Cells UA 0 TO 2 [facility] Work Phone: Glucose, Ur Negative NEGATIVE [facility] Work Phone: Interpretation and review of laboratory results Abnormal [facility] Work Phone: Ketones Ql (U) Negative NEGATIVE [facility] Work Phone: Leukocyte esterase Test strip Ql (U) Negative NEGATIVE [facility] [employer] Work Phone: Mucus, UA TRACE Abnormal None [facility] Work Phone: Nitrite, Urine Negative NEGATIVE [facility] Work Phone: Other Observations UA NOT REPORTED NOT REQ. M [facility] Work Phone: pH, UA 5.5 [facility] Work Phone: Protein (U) [Mass/Vol] 1+ Abnormal NEGATIVE [facility] [employer] Work Phone: RBC (U) [#/Vol] None [facility] Work Phone: Renal Epithelial, UA NOT REPORTED 0 /HPF [facility] [employer] Work Phone: Specific [place], UA 1.025 High [facility] [employer] Work Phone: Trichomonas, UA NOT REPORTED None [facility] Work Phone: Turbidity UA CLEAR CLEAR [facility] Work Phone: Urinalysis Comments NOT REPORTED [facility] Work Phone: Urine Hgb Negative NEGATIVE [facility] Work Phone: Urobilinogen, Urine Normal Normal [facility] Work Phone: WBC, UA 0 TO 2 [facility] Work Phone: Yeast, UA NOT REPORTED None [facility] Work Phone: - [facility] Work Phone: Coding Summary.on 06-01-2020 Coding Summary. CODING DATE: 06/01/2020 [facility] STATUS: Home (Routine DC) PAYOR: [facility] ADMIT DX: REASON FOR VISIT DX: I25.10 Atherosclerotic heart disease of [place] coronary artery without angina pectoris FINAL DX: PRINCIPAL: I25.10 Atherosclerotic heart disease of [place] coronary artery without angina pectoris SECONDARY: I10 Essential (primary) hypertension E78.00 Pure hypercholesterolemia, unspecified E11.9 Type 2 diabetes mellitus without complications Z79.02 long-term (current) use of antithrombotics/antip latelets Z79.82 long-term (current) use of aspirin Z79.84 long-term (current) use of oral hypoglycemic drugs Z79.899 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 No hx AMI. No statin No records. Stented in [facility]. NO chest discomfort now or then Did have some lethargy then EKG today, NSR LVH, repol abn Hx stroke 2019 hx DM BP is high lately. taking norvasc 2.5mg, lisinopril 10, toprol 50mg. Stroke afftected lle and LUE. 06/2019. Was see in [place]. No records. Thinks non-hemorrhagic BS was >600 [...] Family History Acute myocardial infarction: Father. Normal [facility] Comment on above: Result Comment: Elec tronically Signed By: Helder GREENBERG, Antonio Robbins\Date and Time Signed: 04/26/20 14:57 EST Vital Signs Date Time Vital Sign Value Performing Clinician Facility 12-27-2024 10:44-0400 Body temperature 98.01 [degF] Quincy Penn DPM Work Phone: [facility] 12-27-2024 10:44-0400 Diastolic blood pressure 59 mm[Hg] Quincy Penn DPM Work Phone: [facility] 12-27-2024 10:44-0400 Heart rate 64 /min Quincy Penn DPM Work Phone: [facility] 12-27-2024 10:44-0400 Respiratory rate 20 /min Quincy Penn DPM Work Phone: [facility] 12-27-2024 10:44-0400 Systolic blood pressure 132 mm[Hg] Quincy Penn DPM Work Phone: [facility] 12-23-2024 13:29-0400 Body height 182.88 cm Jorge Ball DO Work Phone: [facility] 12-23-2024 13:29-0400 Body mass index (BMI) [Ratio] 34.9 kg/m2 Jorge Ball DO Work Phone: [facility] 12-23-2024 13:29-0400 Body weight 117.02 kg Jorge Ball DO Work Phone: [facility] 12-23-2024 13:29-0400 Diastolic blood pressure 71 mm[Hg] Jorge Ball DO Work Phone: [facility] 12-23-2024 13:29-0400 Heart rate 71 /min Jorge Ball DO Work Phone: [facility] 12-23-2024 13:29-0400 Respiratory rate 14 /min Jorge Ball DO Work Phone: [facility] 12-23-2024 13:29-0400 SaO2% (BldA) [Mass fraction] 97 % Jorge Ball DO Work Phone: [facility] 12-23-2024 13:29-0400 Systolic blood pressure 114 mm[Hg] Jorge Pritchett DO Work Phone: [facility] 12-06-2024 12:05-0400 Respiratory rate 20 /min Quincy Penn DPM Work Phone: [facility] [employer] 11-22-2024 11:01-0400 Body temperature 97.81 [degF] Quincy Penn DPM Work Phone: [facility] [employer] 11-22-2024 11:01-0400 Diastolic blood pressure 60 mm[Hg] Quincy Penn DPM Work Phone: [facility] [employer] 11-22-2024 11:01-0400 Heart rate 67 /min Quincy Penn DPM Work Phone: [facility] [employer] 11-22-2024 11:01-0400 Respiratory rate 20 /min Quincy Penn DPM Work Phone: [facility] [employer] 11-22-2024 11:01-0400 Systolic blood pressure 145 mm[Hg] Quincy Penn DPM Work Phone: [facility] [employer] 11-15-2024 08:54-0400 Body temperature 98.49 [degF] Quincy Penn DPM Work Phone: [facility] [employer] 11-15-2024 08:54-0400 Diastolic blood pressure 61 mm[Hg] Quincy Penn DPM Work Phone: [facility] [facility] [employer] 11-15-2024 08:54-0400 Heart rate 61 /min Quincy Penn DPM Work Phone: [facility] [employer] 11-15-2024 08:54-0400 Respiratory rate 18 /min Quincy Penn DPM Work Phone: [facility] [employer] 11-15-2024 08:54-0400 Systolic blood pressure 133 mm[Hg] Quincy Pnen DPM Work Phone: [facility] [employer] 11-11-2024 09:30-0400 Diastolic blood pressure 58 mm[Hg] Quincy Penn DPM Work Phone: [facility] [employer] 11-11-2024 09:30-0400 Heart rate 64 /min Quincy Penn DPM Work Phone: [facility] [employer] 11-11-2024 09:30-0400 Respiratory rate 16 /min Quincy Penn DPM Work Phone: [facility] [employer] 11-11-2024 09:30-0400 SaO2% (BldA) [Mass fraction] 96 % Quincy Penn DPM Work Phone: [facility] [employer] 11-11-2024 09:30-0400 Systolic blood pressure 164 mm[Hg] Quincy Penn DPM Work Phone: [facility] [employer] 11-11-2024 08:51-0400 Body temperature 97.7 [degF] Quincy Zelayacaitlintiffany DPM Work Phone: [facility] 11-11-2024 06:30-0400 Body height 182.9 cm Quincy Richardstiffany DPM Work Phone: [facility] [employer] 11-11-2024 06:30-0400 Body mass index (BMI) [Ratio] 35.53 kg/m2 Quincy Davonte DPM Work Phone: [facility] 11-11-2024 06:30-0400 Body weight 118.84 kg Quincy Davonte DPM Work Phone: [facility] 11-09-2024 13:45-0400 Body height 182.9 cm [...] 98.1 [degF] Quincy Penn DPM Work Phone: [facility] 11-01-2024 11:32-0400 Diastolic blood pressure 74 mm[Hg] Quincy Penn DPM Work Phone: [facility] 11-01-2024 11:32-0400 Heart rate 69 /min Quincy Penn DPM Work Phone: [facility] 11-01-2024 11:32-0400 Respiratory rate 20 /min Quincy Penn DPM Work Phone: [facility] 11-01-2024 11:32-0400 Systolic blood pressure 153 mm[Hg] Quincy Penn DPM Work Phone: [facility] 10-04-2024 11:14-0400 Body mass index (BMI) [Ratio] 34.75 kg/m2 Quincy Penn DPM Work Phone: [facility] 10-04-2024 11:14-0400 Body temperature 97.59 [degF] Quincy Penn DPM Work Phone: [facility] 10-04-2024 11:14-0400 Body weight 116.21 kg Quincy ePnn DPM Work Phone: [facility] 10-04-2024 11:14-0400 Diastolic blood pressure 68 mm[Hg] Quincy Penn DPM Work Phone: [facility] 10-04-2024 11:14-0400 Heart rate 68 /min Quincy Penn DPM Work Phone: [facility] [employer] 10-04-2024 11:14-0400 Respiratory rate 20 /min Quincy Penn DPM Work Phone: [facility] 10-04-2024 11:14-0400 Systolic blood pressure 130 mm[Hg] Quincy Penn DPM Work Phone: [facility] 09-21-2024 14:30-0400 Body height 182.88 cm [facility] 09-21-2024 14:30-0400 Body mass index (BMI) [Ratio] 34.7 kg/m2 [facility] 09-21-2024 14:30-0400 Body weight 116.23 kg [facility] 09-21-2024 14:30-0400 Diastolic blood pressure 56 mm[Hg] [facility] 09-21-2024 14:30-0400 Heart rate 72 /min [facility] 09-21-2024 14:30-0400 Respiratory rate 12 /min [facility] 09-21-2024 14:30-0400 SaO2% (BldA) [Mass fraction] 99 % [facility] 09-21-2024 14:30-0400 Systolic blood pressure 105 mm[Hg] [facility] 09-06-2024 11:34-0400 Body temperature 97.39 [degF] Quincy Penn DPM Work Phone: [facility] 09-06-2024 11:34-0400 Diastolic blood pressure 55 mm[Hg] Quincy Penn DPM Work Phone: [facility] 09-06-2024 11:34-0400 Heart rate 69 /min Quincy Penn DPM Work Phone: [facility] 09-06-2024 11:34-0400 Respiratory rate 16 /min Quincy Penn DPM Work Phone: [facility] 09-06-2024 11:34-0400 Systolic blood pressure 109 mm[Hg] Quincy Penn DPM Work Phone: [facility] 08-16-2024 11:42-0400 Body height 182.9 cm Quincy PECKM Work Phone: [email or web address] 08-16-2024 11:42-0400 Body mass index (BMI) [Ratio] 36.48 kg/m2 Quincy Penn DPM Work Phone: [facility] [employer] 08-16-2024 11:42-0400 Body weight 122 kg Quincy Penn DPM Work Phone: [facility] Comment on above: as of 07/2308-16-2024 11:42-0400 Heart rate 86 /min Quincy Penn DPM Work Phone: [facility] [employer] 08-16-2024 11:34-0400 Body temperature 98.2 [degF] Quincy Penn DPM Work Phone: [facility] [employer] 08-16-2024 11:34-0400 Diastolic blood pressure 54 mm[Hg] Quincy Penn DPM Work Phone: [facility] [employer] 08-16-2024 11:34-0400 Respiratory rate 16 /min Quincy Penn DPM Work Phone: [facility] [employer] 08-16-2024 11:34-0400 Systolic blood pressure 142 mm[Hg] Quincy Penn DPM Work Phone: [facility] 08-05-2024 13:27-0400 Body height 182.88 cm [facility] 08-05-2024 13:27-0400 Body mass index (BMI) [Ratio] 34.9 kg/m2 [facility] 08-05-2024 13:27-0400 Body weight 116.68 kg [facility] 08-05-2024 13:27-0400 Diastolic blood pressure 84 mm[Hg] [facility] 08-05-2024 13:27-0400 Heart rate 76 /min [facility] 08-05-2024 13:27-0400 SaO2% (BldA) [Mass fraction] 98 % [facility] 08-05-2024 13:27-0400 Systolic blood pressure 146 mm[Hg] [facility] 07-23-2024 08:30-0500 Diastolic blood pressure 52 mm[Hg] Maribel Llanos DO Work Phone: [facility] [employer] 07-23-2024 08:30-0500 Heart rate 83 /min Maribel Mejiasbal DO Work Phone: [facility] 07-23-2024 08:30-0500 Respiratory rate 12 /min Maribel Llanos DO Work Phone: [facility] 07-23-2024 08:30-0500 SaO2% (BldA) [Mass fraction] 99 % Maribel Llanos DO Work Phone: [facility] 07-23-2024 08:30-0500 Systolic blood pressure 129 mm[Hg] Maribel Llanos DO Work Phone: [facility] 07-23-2024 05:29-0500 Body mass index (BMI) [Ratio] 36.48 kg/m2 Maribel Llanos DO Work Phone: [facility] 07-23-2024 05:29-0500 Body weight 122 kg Maribel Llanos DO Work Phone: [facility] 07-22-2024 23:51-0500 Body temperature 97.81 [degF] Maribel Llanos DO Work Phone: [facility] 07-12-2024 14:58-0500 Body height 182.88 cm [facility] 07-12-2024 14:58-0500 Body mass index (BMI) [Ratio] 36.2 kg/m2 [facility] 07-12-2024 14:58-0500 Body weight 121.27 kg [facility] 07-12-2024 14:58-0500 Diastolic blood pressure 89 mm[Hg] [facility] 07-12-2024 14:58-0500 Heart rate 61 /min [facility] 07-12-2024 14:58-0500 SaO2% (BldA) [Mass fraction] 96 % [facility] 07-12-2024 14:58-0500 Systolic blood pressure 139 mm[Hg] [facility] 07-12-2024 10:49-0500 Diastolic blood pressure 61 mm[Hg] Quincy Penn DPM Work Phone: [facility] 07-12-2024 10:49-0500 Heart rate 59 /min Quincy Penn DPM Work Phone: [facility] 07-12-2024 10:49-0500 Systolic blood pressure 136 mm[Hg] Quincy Penn DPM Work Phone: [facility] 07-12-2024 10:34-0500 Body temperature 97.5 [degF] Quincy Penn DPM Work Phone: [facility] 07-12-2024 10:34-0500 Respiratory rate 22 /min Quincy Penn DPM Work Phone: [facility] 05-26-2024 15:18-0500 Body height 182.9 cm Alice Cochran DPM Work Phone: [facility] 05-26-2024 15:18-0500 Body mass index (BMI) [Ratio] 36.08 kg/m2 Alice Cochran DPM Work Phone: [facility] 05-26-2024 15:18-0500 Body weight 120.66 kg Alice Cochran DPM Work Phone: [facility] 05-12-2024 11:55-0500 Body height 182.88 cm [facility] 05-12-2024 11:55-0500 Body mass index (BMI) [Ratio] 35.9 kg/m2 [facility] 05-12-2024 11:55-0500 Body weight 119.97 kg [facility] 05-12-2024 11:55-0500 Diastolic blood pressure 74 mm[Hg] [facility] 05-12-2024 11:55-0500 Heart rate 59 /min [facility] 05-12-2024 11:55-0500 Respiratory rate 12 /min [facility] 05-12-2024 11:55-0500 Systolic blood pressure 176 mm[Hg] [facility] 03-23-2024 13:47-0400 Body height 182.9 cm Alice Cochran DPM Work Phone: [facility] 03-23-2024 13:47-0400 Body mass index (BMI) [Ratio] 36.08 kg/m2 Alice Cochran DPM Work Phone: [facility] 03-23-2024 13:47-0400 Body weight 120.66 kg Alice Mary DPM Work Phone: [facility] 02-28-2024 08:15-0400 Diastolic blood pressure 65 mm[Hg] Gabby Orlando MD Work Phone: [facility] 02-28-2024 08:15-0400 Systolic blood pressure 122 mm[Hg] Gabby Orlando MD Work Phone: [facility] 02-28-2024 07:43-0400 SaO2% (BldA) [Mass fraction] 90 % Gabby Orlando MD Work Phone: [email or web address] 02-28-2024 05:50-0400 Body temperature 98.6 [degF] Gabby Orlando MD Work Phone: [email or web address] [employer] 02-28-2024 05:50-0400 Heart rate 61 /min Gabby Orlando MD Work Phone: [email or web address] 02-28-2024 05:50-0400 Respiratory rate 20 /min Gabby Orlando MD Work Phone: [facility] [employer] 02-27-2024 08:02-0400 Body temperature 97.9 [degF] Fred Villegas MD Work Phone: [email or web address] [employer] 02-27-2024 08:02-0400 Diastolic blood pressure 68 mm[Hg] Fred Villegas MD Work Phone: [facility] [employer] 02-27-2024 08:02-0400 Heart rate 64 /min Fred Villegas MD Work Phone: [facility] 02-27-2024 08:02-0400 Respiratory rate 22 /min Fred Villegas MD Work Phone: [facility] [employer] 02-27-2024 08:02-0400 SaO2% (BldA) [Mass fraction] 96 % Fred Villegas MD Work Phone: [facility] [employer] 02-27-2024 08:02-0400 Systolic blood pressure 153 mm[Hg] rFed Villegas MD Work Phone: [facility] 02-27-2024 05:30-0400 Body mass index (BMI) [Ratio] 36.89 kg/m2 Fred Villegas MD Work Phone: [facility] 02-27-2024 05:30-0400 Body weight 123.38 kg Fred Villegas MD Work Phone: [facility] [employer] 02-25-2024 08:37-0400 Body height 182.9 cm Fred Villegas MD Work Phone: [facility] 02-17-2024 09:55-0400 Body height 182.9 cm [...] [place] 02-03-2024 11:11-0400 Body height 182.88 cm [facility] 02-03-2024 11:11-0400 Body mass index (BMI) [Ratio] 37.4 kg/m2 [facility] 02-03-2024 11:11-0400 Body weight 125.19 kg [facility] 02-03-2024 11:11-0400 Diastolic blood pressure 82 mm[Hg] [facility] 02-03-2024 11:11-0400 Heart rate 70 /min [facility] 02-03-2024 11:11-0400 Respiratory rate 24 /min [facility] 02-03-2024 11:11-0400 Systolic blood pressure 151 mm[Hg] [facility] 12-21-2023 15:30-0400 Diastolic blood pressure 65 mm[Hg] Tigist Correa MD Work Phone: [email or web address] 12-21-2023 15:30-0400 Heart rate 67 /min Tigist Correa MD Work Phone: [email or web address] 12-21-2023 15:30-0400 Respiratory rate 12 /min Tigist Correa MD Work Phone: [email or web address] 12-21-2023 15:30-0400 SaO2% (BldA) [Mass fraction] 98 % Tigist Correa MD Work Phone: [facility] [email or web address] [facility] 12-21-2023 15:30-0400 Systolic blood pressure 146 mm[Hg] Tigist Correa MD Work Phone: [facility] [employer] 12-21-2023 12:50-0400 Body temperature 97.3 [degF] Tigist Correa MD Work Phone: [facility] [employer] 12-21-2023 08:11-0400 Body height 182.9 cm Tigist Correa MD Work Phone: [facility] [employer] 12-21-2023 08:11-0400 Body mass index (BMI) [Ratio] 36.77 kg/m2 Tigist Correa MD Work Phone: [facility] 12-21-2023 08:11-0400 Body weight 123 kg Tigist Correa MD Work Phone: [email or web address] 11-10-2023 11:48-0400 Body height 182.88 cm [facility] 11-10-2023 11:48-0400 Body mass index (BMI) [Ratio] 36.6 kg/m2 [facility] 11-10-2023 11:48-0400 Body weight 122.52 kg [facility] 11-10-2023 11:48-0400 Diastolic blood pressure 83 mm[Hg] [facility] 11-10-2023 11:48-0400 Heart rate 74 /min [facility] 11-10-2023 11:48-0400 Respiratory rate 20 /min [facility] 11-10-2023 11:48-0400 Systolic blood pressure 130 mm[Hg] [facility] 11-03-2023 09:05-0400 Diastolic blood pressure 66 mm[Hg] Akira Ferrer MD Work Phone: [facility] 11-03-2023 09:05-0400 SaO2% (BldA) [Mass fraction] 95 % Akira Ferrer MD Work Phone: [facility] [employer] 11-03-2023 09:05-0400 Systolic blood pressure 210 mm[Hg] Akira Ferrer MD Work Phone: [facility] [employer] 11-03-2023 09:00-0400 Heart rate 65 /min Akira Ferrer MD Work Phone: [facility] [employer] 11-03-2023 09:00-0400 Respiratory rate 20 /min Akira Ferrer MD Work Phone: [facility] [employer] 11-03-2023 07:26-0400 Body height 182.9 cm Akira Ferrer MD Work Phone: [facility] 11-03-2023 07:26-0400 Body mass index (BMI) [Ratio] 37.3 kg/m2 Akira Ferrer MD Work Phone: [facility] 11-03-2023 07:26-0400 Body temperature 97.39 [degF] Akira Ferrer MD Work Phone: [email or web address] 11-03-2023 07:26-0400 Body weight 124.74 kg Akira Ferrer MD Work Phone: [facility] 08-12-2023 11:49-0400 Body height 182.88 cm [facility] 08-12-2023 11:49-0400 Body mass index (BMI) [Ratio] 39.4 kg/m2 [facility] 08-12-2023 11:49-0400 Body weight 131.71 kg [facility] 08-12-2023 11:49-0400 Diastolic blood pressure 80 mm[Hg] [facility] 08-12-2023 11:49-0400 Heart rate 96 /min [facility] 08-12-2023 11:49-0400 Respiratory rate 20 /min [facility] 08-12-2023 11:49-0400 Systolic blood pressure 130 mm[Hg] [facility] 05-13-2023 11:30-0500 Body height 182.88 cm Jorge Yarely Other [employer] Other 05-13-2023 11:30-0500 Body mass index (BMI) [Ratio] 36.37 kg/m2 Jorge Ball Other [employer] Other 05-13-2023 11:30-0500 Body weight 121.66 kg Jorge Ball Other [employer] Other 05-13-2023 11:30-0500 Diastolic blood pressure 75 mm[Hg] Jorge Ball Other [employer] Other 05-13-2023 11:30-0500 Respiratory rate 20 /min Jorge Ball Other [employer] Other 05-13-2023 11:30-0500 SaO2% (BldA) [Mass fraction] 99 % Jorge Ball Other [employer] Other 05-13-2023 11:30-0500 Systolic blood pressure 189 mm[Hg] Jorge Ball Other [employer] Other 02-11-2023 11:30-0400 Body height 182.88 cm Jorge Ball Other [employer] Other 02-11-2023 11:30-0400 Body mass index (BMI) [Ratio] 33.63 kg/m2 Jorge Ball Other [employer] Other 02-11-2023 11:30-0400 Body weight 112.49 kg Jorge Ball Other [employer] Other 02-11-2023 11:30-0400 Diastolic blood pressure 94 mm[Hg] Jorge Ball Other [employer] Other 02-11-2023 11:30-0400 Respiratory rate 20 /min Jorge Ball Other [employer] Other 02-11-2023 11:30-0400 SaO2% (BldA) [Mass fraction] 98 % Jorge Ball Other [employer] Other 02-11-2023 11:30-0400 Systolic blood pressure 195 mm[Hg] Jorge Ball Other [employer] Other 11-11-2022 11:30-0400 Body height 182.88 cm Jorge Ball Other [employer] Other 11-11-2022 11:30-0400 Body mass index (BMI) [Ratio] 34.09 kg/m2 Jorge Ball Other [employer] Other 11-11-2022 11:30-0400 Body weight 114.04 kg Jorge Ball Other [employer] Other 11-11-2022 11:30-0400 Diastolic blood pressure 77 mm[Hg] Jorge Ball Other [employer] Other 11-11-2022 11:30-0400 Respiratory rate 20 /min Jorge Ball Other [employer] Other 11-11-2022 11:30-0400 SaO2% (BldA) [Mass fraction] 98 % Jorge Ball Other [employer] Other 11-11-2022 11:30-0400 Systolic blood pressure 164 mm[Hg] Jorge Ball Other [employer] Other 08-11-2022 12:00-0400 Body height 182.88 cm Jorge Ball Other [employer] Other 08-11-2022 12:00-0400 Body mass index (BMI) [Ratio] 33.39 kg/m2 Jorge Ball Other [employer] Other 08-11-2022 12:00-0400 Body weight 111.68 kg Jorge Privy Other [employer] Other 08-11-2022 12:00-0400 Diastolic blood pressure 70 mm[Hg] Jorge Privy Other [employer] Other 08-11-2022 12:00-0400 Respiratory rate 16 /min Jorge Privy Other [employer] Other 08-11-2022 12:00-0400 Systolic blood pressure 146 mm[Hg] Jorge Privy Other [employer] Other 07-15-2022 15:00-0500 Diastolic blood pressure 52 mm[Hg] Akira Ferrer MD Work Phone: [employer] Comment on above: Kenya Irizarry CRNA notified. ok to discharge p t and patient notified they need to take BP medication when they get home. 07-15-2022 15:00-0500 Heart rate 62 /min Akira Ferrer MD Work Phone: [employer] 07-15-2022 15:00-0500 Respiratory rate 16 /min Akira Ferrer MD Work Phone: [employer] 07-15-2022 15:00-0500 SaO2% (BldA) [Mass fraction] 95 % Akira Ferrer MD Work Phone: [employer] 07-15-2022 15:00-0500 Systolic blood pressure 162 mm[Hg] Akira Ferrer MD Work Phone: [employer] Comment on above: Kenya Irizarry [employer] notified. ok to discharge p t and patient notified they need to take BP medication when they get home. 07-15-2022 14:15-0500 Body temperature 96.69 [degF] Ak[facility]rer MD Work Phone: [facility] 07-15-2022 11:08-0500 Body height 182.9 cm Akira Ferrer MD Work Phone: [facility] [employer] 07-15-2022 11:08-0500 Body mass index (BMI) [Ratio] 33.36 kg/m2 Akira Ferrer MD Work Phone: [facility] [employer] 07-15-2022 11:08-0500 Body weight 111.58 kg Akira Ferrer MD Work Phone: [facility] [employer] 07-02-2022 12:30-0500 Body height 182.88 cm Jorge Ball Other [employer] Other 07-02-2022 12:30-0500 Body mass index (BMI) [Ratio] 33.5 kg/m2 Jorge Ball Other [employer] Other 07-02-2022 12:30-0500 Body weight 112.04 kg Jorge Ball Other [employer] Other 07-02-2022 12:30-0500 Diastolic blood pressure 54 mm[Hg] Jorge Ball Other [employer] Other 07-02-2022 12:30-0500 Respiratory rate 16 /min Jorge Ball Other [employer] Other 07-02-2022 12:30-0500 Systolic blood pressure 102 mm[Hg] Jorge Ball Other [employer] Other 06-01-2021 07:40-0500 Body temperature 96.8 [degF] Lamont Vasquez MD Work Phone: [employer] 06-01-2021 07:40-0500 Diastolic blood pressure 72 mm[Hg] Lamont Vasquez MD Work Phone: [employer] 06-01-2021 07:40-0500 Heart rate 66 /min Lamont Vasquez MD Work Phone: [employer] 06-01-2021 07:40-0500 Respiratory rate 18 /min Lamont Vasquez MD Work Phone: [employer] 06-01-2021 07:40-0500 SaO2% (BldA) [Mass fraction] 95 % Lamont Vasquez MD Work Phone: [employer] 06-01-2021 07:40-0500 Systolic blood pressure 156 mm[Hg] Lamont Vasquez MD Work Phone: [employer] 06-01-2021 03:30-0500 Body mass index (BMI) [Ratio] 32.79 kg/m2 Lamont Vasquez MD Work Phone: [employer] 06-01-2021 03:30-0500 Body weight 109.68 kg Lamont Vasquez MD Work Phone: [employer] 05-28-2021 12:51-0500 Body height 182.9 cm Lamont Vasquez MD Work Phone: [employer] Encounters Encounter Date Encounter Type Care Provider Facility Start: 12-27-2024 End: 12-27-2024 [facility] Start: 12-27-2024 End: 12-27-2024 Subsequent hospital visit by physician Quincy Penn DPM Work Phone: [facility] Comment on above: Critical limb ischem ia of both lower extremities (HCC) (Primary Dx); Eschar of toe; Gangrene of toe of both feet (HCC) Start: 12-23-2024 End: 12-23-2024 ambulatory Jorge Pritchett DO Work Phone: [facility] Work Phone: Start: 12-23-2024 End: 12-23-2024 Patient encounter procedure Jorge Pritchett DO [facility] Work Phone: Start: 12-23-2024 End: 12-23-2024 Patient encounter status Jorge Pritchett DO [facility] Start: 12-06-2024 End: 12-06-2024 ambulatory [facility] Start: 12-06-2024 End: 12-06-2024 Subsequent hospital visit by physician Quincy Penn DPM Work Phone: [facility] Comment on above: Critical limb ischem ia of both lower extremities (HCC) (Primary Dx); Eschar of toe; Gangrene of toe of both feet (HCC) Start: 11-22-2024 End: 11-22-2024 [facility] Start: 11-22-2024 End: 11-22-2024 Subsequent hospital visit by physician Quincy Penn DPM Work Phone: [facility] Comment on above: Orthopedic aftercare (Primary Dx); History of amputation of right great toe Start: 11-16-2024 End: 11-16-2024 [facility] Start: 11-15-2024 Non-patient / Non-visit Jeremias Lucero DO [facility] Work Phone: Start: 11-15-2024 End: 11-15-2024 ambulatory [facility] Start: 11-15-2024 End: 11-15-2024 Subsequent hospital visit by physician Quincy PECKM Work Phone: [facility] Comment on above: Orthopedic aftercare (Primary Dx); History of amputation of right great toe Start: 11-11-2024 End: 11-11-2024 [facility] Start: 11-11-2024 End: 11-11-2024 Subsequent hospital visit by physician Quincy Penn DPM Work Phone: [facility] Comment on above: Acute osteomyelitis of right foot (HCC); Open wound of toe(s) Start: 11-09-2024 End: 11-09-2024 Bamboo flowsheet Alice Cochran DPM Work Phone: [facility] Start: 11-09-2024 End: 11-09-2024 Bamboo flowsheet Alice Cochran DPM Work Phone: [facility] Start: 11-09-2024 End: 11-09-2024 Patient encounter procedure Alice Cochran DPM Work Phone: [facility] Comment on above: Dermatophytosis of n ail (Primary Dx); Dystrophic nail; Type II diabetes mellitus with peripheral circulatory disorder (HCC); Diabetic polyneuropathy associated with type 2 diabetes mellitus ([facility] Start: 11-09-2024 End: 11-09-2024 ambulatory ALICE COCHRAN Not Available Start: 11-01-2024 End: [facility]-01-2024 [facility] Start: 11-01-2024 End: 11-01-2024 Subsequent hospital visit by physician Jorge Pritchett DO Work Phone: [facility] Start: 11-01-2024 End: 11-01-2024 [facility] Start: 11-01-2024 End: 11-01-2024 Subsequent hospital visit by physician Quincy Penn DPBettina Work Phone: [facility] Comment on above: Osteomyelitis of gre at toe of right foot (HCC) (Primary Dx); Critical limb ischemia of both lower extremities ([facility]); Infection of toe; Chronic ulcer of great toe of right foot with fat layer exposed ([facility]) Start: 10-20-2024 End: 10-22-2024 [facility] Start: 10-20-2024 End: 10-22-2024 Subsequent hospital visit by physician Quincy Penn DPM Work Phone: [facility] Comment on above: Acute on chronic cintia stolic (congestive) heart failure (HCC); ASHD (arteriosclerotic heart disease); S/P angioplasty with stent; [facility] hypertension; Mixed hyperlipidemia; PAD (peripheral artery disease); CHRIS (obstructive sleep apnea); Stage 3a chronic kidney disease (HCC) Chronic ulcer of gre at toe of right foot with fat layer exposed ([facility]); Diabetic ulcer of right great toe (HCC) Start: 10-12-2024 ambulatory ALMA KAN [facility] Start: 10-04-2024 End: 10-04-2024 [facility] Start: 10-04-2024 End: 10-04-2024 Subsequent hospital visit by physician Quincy Penn DPM Work Phone: [facility] Comment on above: Chronic ulcer of gre at toe of right foot with fat layer exposed (HCC) (Primary Dx); Diabetic ulcer of right great toe (HCC) Screening PSA (prost ate specific antigen) Start: 09-21-2024 End: 09-21-2024 ambulatory [facility] Work Phone: Start: 09-21-2024 End: 09-21-[address] [facility] ysician [facility] Work Phone: Start: 09-20-2024 End: 09-20-2024 ambulatory [facility] Start: 09-20-2024 End: 09-20-2024 Subsequent hospital visit by physician Jorge Pritchett DO Work Phone: [facility] Start: 09-06-2024 End: 09-08-2024 [facility] Start: 09-06-2024 End: 09-08-2024 Subsequent hospital visit by physician Quincy Penn DPM Work Phone: [facility] Comment on above: Chronic ulcer of gre at toe of right foot with fat layer exposed (HCC) (Primary Dx); Critical limb ischemia of both lower extremities Chronic ulcer of gre at toe of right foot with fat layer exposed (HCC) Start: 08-23-2024 End: 08-23-2024 ambulatory [facility] Start: 08-23-2024 End: 08-23-2024 Subsequent hospital visit by physician Jorge Pritchett DO Work Phone: [facility] Start: 08-16-2024 End: 08-18-2024 ambulatory [facility] Start: 08-16-2024 End: 08-18-2024 Subsequent hospital visit by physician Yamileth Bach Dr Room [address] [facility] Radiology Comment on above: Eschar of toe; Chronic ulcer of great toe of right foot with fat layer exposed (HCC) Start: 08-16-2024 End: 08-16-2024 ambulatory [facility] Start: 08-16-2024 End: 08-16-2024 Subsequent hospital visit by physician Quincy Penn DPM Work Phone: [facility] Comment on above: Chronic ulcer of gre at toe of right foot with fat layer exposed (HCC) (Primary Dx); Eschar of toe; Critical limb ischemia of both lower extremities (HCC); Gangrene of toe of both feet (HCC) Start: 08-08-2024 End: 08-08-2024 ambulatory ALICE COCHRAN Not Available Start: 08-05-2024 End: 08-05-[address] [facility] ysician [facility] Work Phone: Start: 08-02-2024 Non-patient / Non-visit [facility] Physician [facility] Work Phone: Start: 08-01-2024 Non-patient / Non-visit [facility] Work Phone: Start: 07-30-2024 Non-patient / Non-visit [facility] Work Phone: Start: 07-23-2024 End: 07-29-2024 Evaluation and management of inpatient Werner Sunshine MD Facility:[facility] Start: 07-22-2024 End: 07-23-2024 Emergency department patient visit Maribel Llanos DO Work Phone: [facility] Emergency Department Comment on above: Acute renal failure superimposed on chronic kidney disease, unspecified acute renal failure type, unspecified CKD stage (Primary Dx); Dehydration Start: 07-13-2024 End: 07-13-2024 ambulatory [facility] Start: 07-13-2024 End: 07-13-2024 Subsequent hospital visit by physician Jorge Pritchett DO Work Phone: [facility] Start: 07-13-2024 End: 07-13-2024 ambulatory [facility] Start: 07-12-2024 End: 07-12-2024 ambulatory [facility] Work Phone: Start: 07-12-2024 End: 07-12-[address] [facility] y[facility]ician [facility] Work Phone: Start: 07-12-2024 End: 07-12-2024 ambulatory [facility]OR[facility]ITC[facility] Start: 07-12-2024 End: 07-12-2024 Subsequent hospital visit by physician Quincy Penn DPM Work Phone: [facility] Comment on above: Gangrene of toe of b oth feet (HCC) (Primary Dx); Eschar of toe; Critical limb ischemia of both lower extremities ([facility]) Start: 06-27-2024 End: 06-27-2024 ambulatory HARRISON U LEISA [facility] Start: 06-27-2024 End: 06-27-2024 Subsequent hospital visit by physician Jorge Pritchett DO Work Phone: [facility] Start: 05-26-2024 End: 05-26-2024 Patient encounter procedure Alice Cochran DPM Work Phone: [facility] Comment on above: Dermatophytosis of n ail (Primary Dx); Dystrophic nail; Type II diabetes mellitus with peripheral circulatory disorder ([facility]); Diabetic polyneuropathy associated with type 2 diabetes mellitus ([facility]) Start: 05-26-2024 End: 05-26-2024 ambulatory ALICE COCHRAN Not Available Start: 05-26-2024 End: 05-26-2024 Bamboo flowsheet Alice Cochran DPM Work Phone: [facility] Start: 05-26-2024 End: 05-26-2024 Bamboo flowsheet Alice Cochran DPM Work Phone: [facility] Start: 05-13-2024 End: 05-13-2024 [facility] Start: 05-13-2024 End: 05-13-2024 Subsequent hospital visit by physician Jorge Pritchett DO Work Phone: [facility] Start: 05-12-2024 Non-patient / Non-visit [facility] Physician [facility] Work Phone: Start: 05-12-2024 End: 05-12-[address] [facility] Work Phone: Start: 05-11-2024 End: 05-11-2024 [facility] Start: 05-11-2024 End: 05-11-2024 Subsequent hospital visit by physician Jorge Pritchett DO Work Phone: [facility] Start: 05-06-2024 End: 05-06-2024 [facility] Start: 05-06-2024 End: 05-06-2024 Subsequent hospital visit by physician Jorge Pritchett DO Work Phone: [facility] Laboratory Comment on above: Acute on chronic cintia stolic (congestive) heart failure ([facility]); ASHD (arteriosclerotic heart disease); S/P angioplasty with stent; Essential hypertension; Mixed hyperlipidemia; PAD (peripheral artery disease) ([facility]); CHRIS (obstructive sleep apnea); Stage 3a chronic kidney disease ([facility]); Obesity, unspecified class, unspecified obesity type, unspecified whether serious comorbidity present; Acute on chronic combined systolic and diastolic congestive heart failure (HCC) Start: 04-25-2024 End: 04-27-2024 [facility] Start: 04-25-2024 End: 04-27-2024 Subsequent hospital visit by physician Floyd Vee MD Work Phone: [facility] Vascular Lab Comment on above: Critical limb ischem ia of both lower extremities (HCC) Start: 04-13-2024 End: 04-13-2024 [facility] Start: 04-01-2024 End: 04-01-2024 ambulatory HARRISON BELTRAN [facility] Start: 04-01-2024 End: 04-01-2024 Subsequent hospital visit by physician Jorge Pritchett DO Work Phone: [facility] Start: 03-23-2024 End: 03-23-2024 Bamboo flowsheet Alice Cochran DPM Work Phone: [facility] Start: 03-23-2024 End: 03-23-2024 Bamboo flowsheet Alice Cochran DPM Work Phone: [facility] Start: 03-23-2024 End: 03-23-2024 Patient encounter procedure Alice Cochran DPM Work Phone: [facility] Comment on above: Dermatophytosis of n ail (Primary Dx); Dystrophic nail; Type II diabetes mellitus with peripheral circulatory disorder ([facility]); Diabetic polyneuropathy associated with type 2 diabetes mellitus ([facility]) Start: 03-23-2024 End: 03-23-2024 ambulatory ALICE COCHRAN Not Available Start: 03-15-2024 End: 03-15-2024 ambulatory ALMA Hinkle [facility] Start: 03-15-2024 End: 03-15-2024 Subsequent hospital visit by physician Jorge Pritchett DO Work Phone: [facility] Comment on above: Acute on chronic cintia stolic (congestive) heart failure ([facility]); ASHD (arteriosclerotic heart disease); Essential hypertension; Mixed hyperlipidemia; PAD (peripheral artery disease) ([facility]); CHRIS (obstructive sleep apnea); Obesity, unspecified class, unspecified obesity type, unspecified whether serious comorbidity present Start: 03-08-2024 End: 03-08-2024 ambulatory [facility] Start: 02-28-2024 End: 02-28-2024 Emergency department patient visit Gabby Orlando MD Work Phone: [facility] Comment on above: Bilateral lower leg cellulitis (Primary Dx); Pain in left lower leg Start: 02-24-2024 End: 02-27-2024 Evaluation and management of inpatient Fred Villegas MD Work Phone: [facility] Comment on above: Bilateral lower leg cellulitis (Primary Dx); Edema of both lower extremities due to peripheral venous insufficiency; Chronic diastolic congestive heart failure (HCC) Start: 02-24-2024 End: 02-24-2024 ambulatory [facility] Start: 02-17-2024 End: 02-17-2024 Bamboo flowsheet Alice Cochran DPM Work Phone: [facility] Start: 02-17-2024 End: 02-17-2024 Bamboo flowsheet Alice Cochran DPM Work Phone: [facility] Start: 02-17-2024 End: 02-17-2024 Office outpatient visit 15 minutes Alice Cochran DPM Work Phone: [facility] Comment on above: Cellulitis of left f oot (Primary Dx); Type II diabetes mellitus with peripheral circulatory disorder (CMS/HCC); Diabetic polyneuropathy associated with type 2 diabetes mellitus (CMS/HCC); Skin ulcer of midfoot region, left, limited to breakdown of skin ([facility]/HCC) Start: 02-17-2024 End: 02-17-2024 ambulatory ALICE COCHRAN Not Available Start: 02-09-2024 End: 02-09-2024 ambulatory [facility] Start: 02-09-2024 End: 02-09-2024 Subsequent hospital visit by physician Jorge Pritchett DO Work Phone: [facility] Start: 02-09-2024 End: 02-09-2024 ambulatory [facility] Start: 02-05-2024 End: 02-05-2024 Bamboo flowsheet Alice Cochran DPM Work Phone: [facility] Start: 02-05-2024 End: 02-05-2024 Bamboo flowsheet Alice Cochran DPM Work Phone: [facility] Start: 02-05-2024 End: 02-05-2024 ambulatory ALICE COCHRAN Not Available Start: 02-05-2024 End: 02-05-2024 Office outpatient visit 25 minutes Alice Cochran DPM Work Phone: [facility] Comment on above: Cellulitis of left f oot (Primary Dx); Type II diabetes mellitus with peripheral circulatory disorder (CMS/HCC); Diabetic polyneuropathy associated with type 2 diabetes mellitus (CMS/HCC); Skin ulcer of midfoot region, left, limited to breakdown of skin (CMS/HCC) Start: 02-03-2024 End: 02-03-2024 ambulatory [facility] Work Phone: Start: 02-03-2024 End: 02-03-[address] [facility] Work Phone: Start: 01-26-2024 ambulatory [facility] Start: 01-04-2024 End: 01-04-2024 ambulatory ALICE COCHRAN Not Available Start: 12-21-2023 End: 12-21-2023 ambulatory TIGIST CORREA [facility] Start: 12-21-2023 End: 12-21-2023 Subsequent hospital visit by physician Tigist Correa MD Work Phone: [facility] Cardiac Cath/IR Lab Comment on above: CHRIS (obstructive sle ep apnea) (Primary Dx); Abnormal stress test; Chest pain; CAD (coronary artery disease); Constipation, unspecified constipation type; 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, unspecified vessel or lesion type ([facility]) Start: 12-02-2023 End: 12-02-2023 Subsequent hospital visit by physician Yumiko Montes PTA [facility] Physical Therapy Comment on above: Arrived Start: 11-11-2023 End: 11-11-2023 Subsequent hospital visit by physician [facility]rit[facility]tt DO [facility] Comment on above: Chronic diastolic he art failure (HCC) Start: 11-10-2023 End: 11-10-2023 Encounter for general adult medical examination without abnormal findings [facility] Start: 11-10-2023 End: 11-10-[address] [facility] Work Phone: Start: 11-09-2023 End: 11-09-2023 Subsequent hospital visit by physician Yumiko Montes PTA [facility] Physical Therapy Comment on above: Arrived Start: 11-06-2023 End: 11-06-2023 Subsequent hospital visit by physician Yumiko Montes PTA [facility] Physical Therapy Comment on above: Arrived Start: 11-03-2023 End: 11-03-2023 Subsequent hospital visit by physician Akira Ferrer MD Work Phone: [facility] Start: 10-22-2023 End: 10-22-2023 Subsequent hospital visit by physician Yumiko Montes PTA [facility] Physical Therapy Comment on above: Arrived Start: 08-12-2023 End: 08-12-2023 ambulatory [facility] Work Phone: Start: 08-12-2023 End: 08-12-[address] [facility] ysician [facility] Work Phone: Start: 08-05-2023 End: 08-05-2023 Subsequent hospital visit by physician Jorge Pritchett DO Work Phone: [facility] Comment on above: Screening PSA (prost ate specific antigen); Incomplete emptying of bladder Start: 07-27-2023 Non-patient / Non-visit [facility] Work Phone: Start: 07-27-2023 Non-patient / Non-visit [facility] Work Phone: Start: 06-30-2023 End: 06-30-2023 Subsequent hospital visit by physician Jorge Pritchett DO Work Phone: [facility] Start: 06-02-2023 End: 06-02-2023 ambulatory Jorge Pritchett Other [place] [employer] Other Start: 06-02-2023 Telephone encounter Jorge Ball [facility] Start: 05-13-2023 End: 05-13-2023 ambulatory Jorge Ball Other [facility] Other Start: 05-13-2023 Office outpatient vi sit 25 minutes Jorge Ball [facility] Start: 05-07-2023 End: 05-07-2023 ambulatory Jorge Ball Other [facility] Other Start: 05-07-2023 Telephone encounter Jorge Ball [facility] Start: 04-26-2023 End: 04-26-2023 ambulatory Jorge Ball Other [facility] Other Start: 04-26-2023 Telephone encounter Jorge Ball [facility] Start: 04-19-2023 End: 04-19-2023 ambulatory Jorge Ball Other [facility] Other Start: 04-19-2023 Telephone encounter Jorge Ball [facility] Start: 04-06-2023 End: 04-06-2023 ambulatory Jorge Ball Other [facility] Other Start: 04-06-2023 Telephone encounter Jorge Ball [facility] Start: 03-30-2023 End: 03-30-2023 ambulatory Jorge Ball Other [facility] Other Start: 03-30-2023 Telephone encounter Jorge Ball [facility] Start: 02-26-2023 End: 02-26-2023 ambulatory Jorge Ball Other [facility] Other Start: 02-26-2023 Telephone encounter Jorge Ball [facility] Start: 02-11-2023 End: 02-11-2023 ambulatory Jorge Ball Other [facility] Other Start: 02-11-2023 Office outpatient vi sit 25 minutes Jorge Ball [facility] Start: 01-15-2023 End: 01-17-2023 Subsequent hospital visit by physician Harrison Beltran DO Work Phone: [facility] Nuclear Medicine Comment on above: Arrived Start: 01-06-2023 End: 01-06-2023 ambulatory Jorge Pritchett Other [facility] Other Start: 01-06-2023 Telephone encounter Jorge [facility] Start: 12-29-2022 End: 12-29-2022 ambulatory Jorge Pritchett Other [facility] Other Start: 12-29-2022 Telephone encounter Jorge Pritchett [facility] Start: 12-22-2022 End: 12-24-2022 Subsequent hospital visit by physician Yamileth Bach Dr Room [address] [facility] Radiology Comment on above: Dyspnea on exertion Start: 12-18-2022 End: 12-18-2022 Subsequent hospital visit by physician Rashel Cárdenas PT [facility] Physical Therapy Comment on above: Arrived Start: 12-11-2022 End: 12-11-2022 Subsequent hospital visit by physician Rashel Cárdenas PT [facility] Physical Therapy Comment on above: Arrived Start: 12-03-2022 End: 12-03-2022 Subsequent hospital visit by physician Shirin Bajwa PTA [facility] Physical Therapy Comment on above: Arrived Start: 12-01-2022 End: 12-01-2022 Subsequent hospital visit by physician Rashel Cárdenas PT [facility] Physical Therapy Comment on above: Arrived Start: 11-14-2022 End: 11-14-2022 Subsequent hospital visit by physician Sharonda Gonzalez PTA [facility] Physical Therapy Comment on above: Arrived Start: 11-11-2022 End: 11-11-2022 ambulatory Jorge Pritchett Other [place] [employer] Other Start: 11-11-2022 Office outpatient vi sit 25 minutes Jorge Pritchett [facility] Start: 11-07-2022 End: 11-07-2022 Subsequent hospital visit by physician Rashel Cárdenas PT [facility] Physical Therapy Comment on above: Arrived Start: 11-06-2022 End: 11-06-2022 ambulatory Jorge Pritchett Facility:[facility] Start: 11-06-2022 End: 11-06-2022 ambulatory HUMID SYSTEM OPERATOR-C Pia Douglass Work Phone: [facility] Work Phone: Start: 11-06-2022 End: 11-06-2022 Patient encounter procedure HUMID SYSTEM OPERATOR-C Pia Douglass Work Phone: [facility] [place] Work Phone: Start: 10-28-2022 End: 10-28-2022 ambulatory Jorge Pritchett Other [facility] Other Start: 10-28-2022 Telephone encounter Jorge Pritchett [facility] Start: 10-27-2022 End: 10-27-2022 Subsequent hospital visit by physician Shirin Bajwa PTA [facility] Physical Therapy Comment on above: Arrived Start: 10-20-2022 End: 10-20-[address] JORGE PRITCHETT Facility:[facility] Start: 10-13-2022 End: 10-13-[address] ALICE CIFUENTES Facility:[facility] Start: 10-03-2022 End: 10-03-2022 Subsequent hospital visit by physician Shirin Bajwa PTA [facility] Physical Therapy Comment on above: Arrived Start: 09-29-2022 End: 09-29-2022 Subsequent hospital visit by physician Shirin Bajwa PTA [facility] Physical Therapy Comment on above: Arrived Start: 09-15-2022 End: 09-15-2022 Subsequent hospital visit by physician Shirin Bajwa PTA [facility] Physical Therapy Comment on above: Arrived Start: 09-09-2022 End: 09-09-2022 ambulatory Jorge Pritchett Other [facility] Other Start: 09-09-2022 Telephone encounter Jorge ACUÑA [facility] Start: 09-05-2022 End: 09-05-2022 Subsequent hospital visit by physician Chris Sauceda PT [facility] Physical Therapy Comment on above: Arrived Start: 09-01-2022 End: 09-01-2022 Subsequent hospital visit by physician Shirin Bajwa PTA [facility] Physical Therapy Comment on above: Arrived Start: 08-29-2022 End: 08-29-2022 Subsequent hospital visit by physician Shirin Bajwa [employer]ANCE [employer]IC[employer]ING SUPERVISOR [facility] Physical Therapy Comment on above: Arrived Start: 08-25-2022 End: 08-25-2022 Subsequent hospital visit by physician Chris Sauceda PT [facility] Physical Therapy Comment on above: Arrived Start: 08-20-2022 End: 08-20-2022 Subsequent hospital visit by physician Kelly Amaya PT [facility] Physical Therapy Comment on above: Arrived Start: 08-11-2022 End: 08-11-2022 ambulatory Joreg Pritchett Other [facility] Other Start: 08-11-2022 Office outpatient vi sit 25 minutes Jorge Pritchett [facility] Start: 08-05-2022 End: 08-05-2022 Subsequent hospital visit by physician Jorge Pritchett DO Work Phone: [facility] Laboratory Comment on above: BPH with obstruction /lower urinary tract symptoms; Post-operative state Start: 07-15-2022 End: 07-15-2022 ambulatory Jorge Pritchett Other [facility] Other Start: 07-15-2022 Telephone encounter Jorge Pritchett [facility] Start: 07-15-2022 End: 07-15-2022 Subsequent hospital visit by physician Akira Ferrer MD Work Phone: [facility] OR Start: 07-14-2022 End: 07-14-2022 Subsequent hospital visit by physician [facility] Cardiology Stress Room [facility] Stress Lab Comment on above: Arrived Start: 07-11-2022 End: 07-11-2022 Patient encounter status [facility] Room [facility] Stress Lab Start: 07-11-2022 End: 07-11-2022 Subsequent hospital visit by physician [facility] Cardiology Stress Room [facility] Stress Lab Comment on above: [...] 07-02-2022 End: 07-02-2022 ambulatory Jorge Pritchett Other [facility] Other Start: 07-02-2022 Encounter for other preprocedural examination Jorge Pritchett [facility] Start: 07-02-2022 Office outpatient vi sit 25 minutes Jorge Pritchett [facility] Start: 06-25-2022 End: 06-25-2022 Subsequent hospital visit by physician Jorge Pritchett DO Work Phone: [facility] Laboratory Comment on above: BPH with obstruction /lower urinary tract symptoms; Incomplete emptying of bladder; Frequency of urination; Urgency of micturition Start: 05-24-2022 End: 05-24-2022 Subsequent hospital visit by physician Jorge Bernal Phone: [facility] Laboratory Start: 05-23-2022 End: 05-23-2022 Subsequent hospital visit by physician Huang Urbina PT [facility] Physical Therapy Comment on above: Arrived Start: 05-23-2022 End: 05-23-2022 ambulatory Jorge Pritchett Other [facility] Other Start: 05-23-2022 Telephone encounter Jorge Pritchett [facility] Start: 05-22-2022 End: 05-22-2022 Subsequent hospital visit by physician Huang Urbina PT [facility] Physical Therapy Comment on above: Arrived Start: 05-20-2022 End: 05-22-2022 Subsequent hospital visit by physician [facility] Ultrasound Room 2 [facility] Ultrasound Comment on above: Incomplete bladder e mptying Start: 05-14-2022 End: 05-14-2022 ambulatory PETTY ANGULO . 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); Intermittent claudication (HCC); Primary hypertension; Mixed hyperlipidemia; CHRIS (obstructive sleep apnea); Stage 3 chronic kidney disease, unspecified whether stage 3a or 3b CKD (HCC); Primary hyperparathyroidism (HCC); Adenoma of left adrenal gland Start: 05-06-2022 End: 05-06-2022 Subsequent hospital visit by physician Huang Urbina PT [facility] Physical Therapy Comment on above: Arrived Start: 05-02-2022 End: 05-02-2022 Subsequent hospital visit by physician Doc Agrawal INSURANCE LICENSING SUPERVISOR [facility] Physical Therapy Comment on above: Arrived Start: 04-02-2022 End: 04-02-2022 Subsequent hospital visit by physician Doc Agrawal INSURANCE LICENSING SUPERVISOR [facility] Physical Therapy Comment on above: Arrived Start: 03-31-2022 End: 03-31-2022 Subsequent hospital visit by physician Chris Sauceda PT [facility] Physical Therapy Comment on above: Arrived Start: 03-26-2022 End: 03-26-2022 Subsequent hospital visit by physician Shirin Bajwa INSURANCE LICENSING SUPERVISOR [facility] Physical Therapy Comment on above: Arrived Start: 03-24-2022 End: 03-24-2022 Subsequent hospital visit by physician Huang Urbina PT [facility] Physical Therapy Comment on above: Arrived Start: 03-20-2022 End: 03-20-2022 Subsequent hospital visit by physician Jorge Pritchett DO Work Phone: [facility] Laboratory Comment on above: Incomplete emptying of bladder Start: 03-18-2022 End: 03-18-2022 Subsequent hospital visit by physician Chris Sauceda PT [facility] Physical Therapy Comment on above: Arrived Start: 03-14-2022 End: 03-14-2022 Subsequent hospital visit by physician Yumiko Montes INSURANCE LICENSING SUPERVISOR [facility] Physical Therapy Comment on above: Arrived Start: 03-06-2022 End: 03-06-2022 Subsequent hospital visit by physician Rashel Cárdenas PT [facility] Physical Therapy Comment on above: Arrived Start: 03-04-2022 End: 03-04-2022 Subsequent hospital visit by physician Yumiko Montes INSURANCE LICENSING SUPERVISOR [facility] Physical Therapy Comment on above: Arrived Start: 02-28-2022 End: 02-28-2022 Subsequent hospital visit by physician Huang Urbina PT [facility] Physical Therapy Comment on above: Arrived Start: 02-18-2022 End: 02-18-2022 Subsequent hospital visit by physician Colton Lim [facility] Physical Therapy Comment on above: Arrived Start: 02-14-2022 End: 02-14-2022 Subsequent hospital visit by physician Huang Urbina PT [facility] Physical Therapy Comment on above: Arrived Start: 02-07-2022 End: 02-07-2022 Subsequent hospital visit by physician Yumiko Montes INSURANCE LICENSING SUPERVISOR [facility] Physical Therapy Comment on above: Arrived Start: 01-31-2022 End: 01-31-2022 Subsequent hospital visit by physician Doc Agrawal PTA [facility] Physical Therapy Comment on above: Arrived Start: 01-28-2022 End: 01-28-2022 Subsequent hospital visit by physician Rashel Cárdenas PT [facility] Physical Therapy Comment on above: Arrived Start: 01-24-2022 End: 01-24-2022 Subsequent hospital visit by physician Rashel Cárdenas PT [facility] Physical Therapy Comment on above: Arrived Start: 01-21-2022 End: 01-21-2022 Subsequent hospital visit by physician Doc Agrawal PTA [facility] Physical Therapy Comment on above: Arrived Start: 01-16-2022 End: 01-16-2022 Subsequent hospital visit by physician Rashel Cárdenas PT [facility] Physical Therapy Comment on above: Arrived Start: 01-09-2022 End: 01-09-2022 ambulatory Pia Douglass Facility:[facility] Start: 01-09-2022 End: 01-09-2022 Patient encounter procedure HUMID SYSTEM OPERATOR-C Pia Douglass Work Phone: [facility] [place] Start: 01-08-2022 End: 01-08-2022 Subsequent hospital visit by physician Doc Agrawal PTA [facility] Physical Therapy Comment on above: Arrived Start: 01-06-2022 End: 01-06-2022 Subsequent hospital visit by physician Doc Agrawal PTA [facility] Physical Therapy Comment on above: Arrived Start: 01-03-2022 End: 01-03-2022 Subsequent hospital visit by physician Doc Agrawal PTA [facility] Physical Therapy Comment on above: Arrived Start: 01-01-2022 End: 01-01-2022 Subsequent hospital visit by physician Doc Agrawal PTA [facility] Physical Therapy Comment on above: Arrived Start: 12-30-2021 End: 12-30-2021 Subsequent hospital visit by physician Doc Agrawal PTA [facility] Physical Therapy Comment on above: Arrived Start: 12-27-2021 End: 12-27-2021 Subsequent hospital visit by physician Rashel Cárdenas PT [facility] Physical Therapy Comment on above: Arrived Start: 12-26-2021 End: 12-26-2021 Subsequent hospital visit by physician Doc Agrawal PTA [facility] Physical Therapy Comment on above: Arrived Start: 12-24-2021 End: 12-24-2021 Subsequent hospital visit by physician Colton Lim [facility] Physical Therapy Comment on above: Arrived Start: 12-18-2021 End: 12-18-2021 Subsequent hospital visit by physician Doc Agrawal PTA [facility] Physical Therapy Comment on above: Arrived Start: 12-17-2021 End: 12-17-2021 Subsequent hospital visit by physician Rashel Cárdenas PT [facility] Physical Therapy Comment on above: Arrived Start: 12-09-2021 End: 12-09-2021 Subsequent hospital visit by physician [facility] Cardiopulm Rehab Rm 4 [facility] Cardiac Rehab Comment on above: Arrived Start: 12-05-2021 End: 12-05-2021 Subsequent hospital visit by physician [facility] Cardiopulm Rehab Rm 4 [facility] Cardiac Rehab Comment on above: Arrived Start: 12-02-2021 End: 12-02-2021 Subsequent hospital visit by physician [facility] Cardiopulm Rehab Rm 4 [facility] Cardiac Rehab Comment on above: Arrived Start: 11-21-2021 End: 11-21-2021 Subsequent hospital visit by physician [facility] 2 [facility] Comment on above: Arrived Start: 11-18-2021 End: 11-18-2021 Subsequent hospital visit by physician Josefa Ruvalcaba RD, DEBORAH Work Phone: [facility] Diet and Nutrition Comment on above: Arrived Start: 10-31-2021 End: 10-31-2021 Subsequent hospital visit by physician [facility] Cardiopulm Rehab Rm 2 [facility] Cardiac Rehab Comment on above: Arrived Start: 10-28-2021 End: 10-28-2021 Subsequent hospital visit by physician [facility] Cardiopulm Rehab Rm 2 [facility] Cardiac Rehab Comment on above: Arrived Start: 10-23-2021 End: 10-23-2021 Subsequent hospital visit by physician [facility] Cardiopulm Rehab Rm 2 [facility] Cardiac Rehab Comment on above: Arrived Start: 10-17-2021 End: 10-17-2021 Subsequent hospital visit by physician [facility] Cardiopulm Rehab Rm 2 [facility] Cardiac Rehab Comment on above: Arrived Start: 10-14-2021 End: 10-14-2021 Subsequent hospital visit by physician [facility] Cardiopulm Rehab Rm 2 [facility] Cardiac Rehab Comment on above: Arrived Start: 10-03-2021 End: 10-03-2021 Subsequent hospital visit by physician [facility] Cardiopulm Rehab Rm 2 [facility] Cardiac Rehab Comment on above: Arrived Start: 09-30-2021 End: 09-30-2021 Subsequent hospital visit by physician [facility] Cardiopulm Rehab Rm 2 [facility] Cardiac Rehab Comment on above: Arrived Start: 09-27-2021 End: 09-27-2021 Subsequent hospital visit by physician Yamileth Cr Education Room [facility] Cardiac Rehab Comment on above: Arrived Start: 09-11-2021 End: 09-13-2021 Subsequent hospital visit by physician [facility] Cat Scan Room [facility] CT Scan Comment on above: Uricaciduria Start: 06-12-2021 End: 06-20-2021 Evaluation and management of inpatient [facility] Start: 05-27-2021 End: 06-01-2021 Evaluation and management of inpatient Lamont Vasquez MD Work Phone: [facility] Start: 04-24-2021 End: 04-24-2021 Subsequent hospital visit by physician Reyes Sleep Rm 1 [facility] Sleep Center Comment on above: Arrived Start: 07-25-2020 End: 07-25-2020 Subsequent hospital visit by physician Pia Douglass [facility] Laboratory Comment on above: BPH with obstruction /lower urinary tract symptoms; Incomplete emptying of bladder Procedures Date Procedure Procedure Detail Performing Clinician Start: 12-06-2024 Renal function panel Steen rubi Corral CLINICAL SOCIOLOGIST - COURT RECORDER Work Phone: Start: 12-06-2024 Urinalysis microscopic only Hallie Corral CLINICAL SOCIOLOGIST - COURT RECORDER Work Phone: Start: 12-06-2024 Urnls dip stick/tabl et rgnt auto w/o microscopy Hallie Corral CLINICAL SOCIOLOGIST - COURT RECORDER Work Phone: Start: 11-11-2024 GLUCOSE, WHOLE BLOOD Cherise hn W Bremyer DPM Work Phone: Start: 11-11-2024 GLUCOSE, WHOLE BLOOD Cherise hn W Bremyer DPM Work Phone: Start: 11-01-2024 Renal function panel Br vanviola Duarte CLINICAL SOCIOLOGIST - COURT RECORDER Work Phone: Start: 11-01-2024 Urinalysis microscopic only Lev Duarte CLINICAL SOCIOLOGIST - COURT RECORDER Work Phone: Start: 11-01-2024 Urnls dip stick/tabl et rgnt auto w/o microscopy Lev Duarte CLINICAL SOCIOLOGIST - COURT RECORDER Work Phone: Start: 10-20-2024 Basic metabolic pane l calcium total Lev Duarte CLINICAL SOCIOLOGIST - COURT RECORDER Work Phone: Start: 10-04-2024 Hemoglobin glycosylated a1c [...] Start: 07-13-2024 Renal function panel Negrito Glass CLINICAL SOCIOLOGIST - COURT RECORDER Work Phone: Start: 06-27-2024 Renal function panel [...] TO MG FOR LOW K Cassie Lantigua CLINICAL SOCIOLOGIST - [facility] Work Phone: Start: 02-27-2024 Blood count complete auto&auto difrntl wbc Cassie Lantigua CLINICAL SOCIOLOGIST - [facility] Work Phone: Start: 02-26-2024 GLUCOSE, WHOLE BLOOD Ch marci Villegas MD Work Phone: Start: 02-26-2024 GLUCOSE, WHOLE BLOOD Ch marci Villegas MD Work Phone: Start: 02-26-2024 GLUCOSE, WHOLE BLOOD Ch marci Villegas MD Work Phone: Start: 02-26-2024 GLUCOSE, WHOLE BLOOD Ch marci Villegas MD Work Phone: Start: 02-26-2024 BASIC METABOLIC PANE L W/ REFLEX TO MG FOR LOW K Cassie Lantigua CLINICAL SOCIOLOGIST - [facility] Work Phone: Start: 02-26-2024 Blood count complete auto&auto difrntl wbc Cassie Lantigua CLINICAL SOCIOLOGIST - COURT RECORDER Work Phone: Start: 02-25-2024 End: 02-25-2024 GLUCOSE, WHOLE BLOOD Fred Villegas MD Work Phone: Start: 02-25-2024 Assay of magnesium Pat MorejonR [facility] [employer] [facility] RECORDER Work Phone: Start: 02-25-2024 BASIC METABOLIC PANE L W/ REFLEX TO MG FOR LOW K Cassie Cosby DarleenR [facility] [employer] [facility] Work Phone: Start: 02-24-2024 GLUCOSE, WHOLE BLOOD Kalyn Villegas MD Work Phone: Start: 02-24-2024 GLUCOSE, WHOLE BLOOD Kalyn Villegas MD Work Phone: Start: 02-24-2024 End: 02-24-2024 Radiologic examination tibia & fibula 2 views Bettina Burks CLINICAL SOCIOLOGIST [employer] [facility] Work Phone: Start: 02-24-2024 Comprehensive metabo lic panel Bettina Burks CLINICAL SOCIOLOGIST [employer] RECORDER Work Phone: Start: 02-24-2024 Culture bacterial quanttative colony count urine Bettina Burks CLINICAL SOCIOLOGIST [employer] [facility] Work Phone: Start: 02-24-2024 Urnls dip stick/tabl et rgnt auto w/o microscopy Bettina Burks CLINICAL SOCIOLOGIST [employer] [facility] Work Phone: Start: 02-09-2024 Basic metabolic [...] metabolic pane l calcium total Kena Boyd CLINICAL SOCIOLOGIST - [employer] Work Phone: Start: 11-03-2023 Radiologic exam ches t single view Kena Boyd CLINICAL SOCIOLOGIST - [employer] Work Phone: Start: 11-03-2023 GLUCOSE, WHOLE [...] exam ches t 2 views Nancy Roe CLINICAL SOCIOLOGIST - COURT RECORDER Work Phone: Start: 07-11-2022 Echo tthrc r-t [...] r eal time w/image complete Arabella Lucero OneilWhelse PA-[employer] Work Phone: Start: 05-13-2022 PSA screening Jorge Pritchett DO Work Phone: Comment on above: The Cyndi ECLIA as say is used. Results obtained with different assay methods cannot be used interchangeably. Start: 05-13-2022 Basic metabolic pane l calcium total Arabella Lucero OneilWhelse PA-[employer] Work Phone: Start: 03-20-2022 Basic metabolic pane l calcium total Nancy W Jyothi CLINICAL SOCIOLOGIST - COURT RECORDER Work Phone: Start: 09-11-2021 Ct abdomen & pelvis w/o contrast material Arabella RAINES-[employer] Work Phone: Start: 06-01-2021 Basic metabolic pane [...] Work Phone: Start: 05-28-2021 GLUCOSE, WHOLE BLOOD Thaila Vasquez MD Work Phone: Start: 05-28-2021 Echo tthrc r-t 2d w/wom-mode compl spec&colr d Cassie Morejon CLINICAL SOCIOLOGIST - COURT RECORDER Work Phone: Start: 05-28-2021 GLUCOSE, WHOLE BLOOD [...] ast 12 lds i&r only Cassie Morejon Hipmunk Work Phone: Start: 05-27-2021 BASIC METABOLIC PANE L W/ REFLEX TO MG FOR LOW K Cassie Morejon Hipmunk Work Phone: Start: 05-27-2021 Hemoglobin glycosylated a1c Cassie Morejon Hipmunk Work Phone: Start: 05-27-2021 Radiologic exam ches t 2 views Cassie Morejon Hipmunk Work Phone: Start: 07-25-2020 Urnls dip stick/tabl [...] DTaP/Tdap/Td vaccine (2 - Td or Tdap) [employer] Start: 11-27-2026 Screening for malignant neoplasm of colon [employer] Start: 12-06-2025 GFR test (Diabetes, CKD 3-4, OR last GFR 15-59) GFR test (Diabetes, CKD 3-4, OR last GFR 15-59) [email or web address] Start: 11-01-2025 GFR test (Diabetes, CKD 3-4, OR last GFR 15-59) GFR test (Diabetes, CKD 3-4, OR last GFR 15-59) [email or web address] Start: 10-20-2025 GFR test (Diabetes, CKD 3-4, OR last GFR 15-59) GFR test (Diabetes, CKD 3-4, OR last GFR 15-59) [email or web address] Start: 10-09-2025 End: 10-09-2025 Patient encounter procedure 10/09/2025 1:00 PM EDT Office Visit [facility] UROLOGY Part of [facility] [address] [facility] [place] [address] Arabella Dyer PA-C [address] [facility] [place] [address] 1Y psa [facility] Part [facility] Comment on above: 1Y psa Start: 10-04-2025 Hemoglobin A1c measurement A1C test (Diabetic or Prediabetic) [facility] Start: 09-20-2025 GFR test (Diabetes, CKD 3-4, OR last GFR 15-59) GFR test (Diabetes, CKD 3-4, OR last GFR 15-59) [facility] Start: 08-23-2025 GFR test (Diabetes, CKD 3-4, OR last GFR 15-59) GFR test (Diabetes, CKD 3-4, OR last GFR 15-59) [facility] Start: 07-22-2025 GFR test (Diabetes, CKD 3-4, OR last GFR 15-59) GFR test (Diabetes, CKD 3-4, OR last GFR 15-59) [facility] Start: 07-13-2025 GFR test (Diabetes, CKD 3-4, OR last GFR 15-59) GFR test (Diabetes, CKD 3-4, OR last GFR 15-59) [facility] Start: 07-12-2025 End: 07-12-2025 Follow-up encounter 07/12/2025 1:00 PM EST Pharmacy Visit [facility] Medication Management [address] [place] [id number] Heart Failure FU- 6month follow-up [facility] Medication Management Comment on above: Heart Failure FU- 6month follow-up Start: 06-27-2025 GFR test (Diabetes, CKD 3-4, OR last GFR 15-59) GFR test (Diabetes, CKD 3-4, OR last GFR 15-59) [facility] Start: 05-11-2025 GFR test (Diabetes, CKD 3-4, OR last GFR 15-59) GFR test (Diabetes, CKD 3-4, OR last GFR 15-59) [facility] Start: 05-06-2025 GFR test (Diabetes, CKD 3-4, OR last GFR 15-59) GFR test (Diabetes, CKD 3-4, OR last GFR 15-59) [facility] Start: 04-27-2025 End: 04-27-2025 Patient encounter procedure 04/27/2025 1:40 PM EST Office Visit [facility] CARDIOLOGY [address] [phone] Alma Kan MD [address] [place] [address] [place] [address] 6 month [facility]ARDI[facility] Comment on above: 6 month Start: 04-12-2025 End: 04-12-2025 Patient encounter procedure 04/12/2025 2:30 PM EST Office Visit [facility]Y [address] [id number] Arabella Dyer, PA-C [address] [place] [address] [address] [place] [address] 6M pvr [facility] Comment on above: 6M pvr Start: 04-01-2025 GFR test (Diabetes, CKD 3-4, OR last GFR 15-59) GFR test (Diabetes, CKD 3-4, OR last GFR 15-59) [facility] Start: 03-15-2025 GFR test (Diabetes, CKD 3-4, OR last GFR 15-59) GFR test (Diabetes, CKD 3-4, OR last GFR 15-59) [facility] Start: 03-15-2025 End: 03-15-2025 Patient encounter procedure 03/15/2025 1:30 PM EDT Office Visit [facility] VASCULAR Part [address] [facility] [place] [address] Floyd Vee MD [address] [place] [address] [address] [place] [address] F/U from 09/14/24 [facility] Part of [facility] Comment on above: F/U from 09/14/24 Start: 02-27-2025 GFR test (Diabetes, CKD 3-4, OR last GFR 15-59) GFR test (Diabetes, CKD 3-4, OR last GFR 15-59) [facility] Start: 02-26-2025 GFR test (Diabetes, CKD 3-4, OR last GFR 15-59) GFR test (Diabetes, CKD 3-4, OR last GFR 15-59) [facility] Start: 02-23-2025 Diabetic foot examination Diabetic foot exam [facility] Start: 02-23-2025 Hemoglobin A1c measurement A1C test (Diabetic or Prediabetic) [facility] Start: 02-16-2025 End: 02-16-2025 Patient encounter procedure 02/16/2025 2:45 PM EDT Procedure Visit [facility] [address] [place] [phone] Alice Cochran DPM [address] [place] [address] [facility] Start: 02-08-2025 GFR test (Diabetes, CKD 3-4, OR last GFR 15-59) GFR test (Diabetes, CKD 3-4, OR last GFR 15-59) [facility] Start: 12-27-2024 End: 12-27-2024 Patient encounter procedure 12/27/2024 10:30 AM EDT Appointment [facility] [address] [facility] [address] [place] [address] Quincy Penn DPM [address] [facility] [address] [address] right great toe [facility] Comment on above: right great toe Start: 12-23-2024 Influenza vaccination [facility] Start: 12-20-2024 GFR test (Diabetes, CKD 3-4, OR last GFR 15-59) GFR test (Diabetes, CKD 3-4, OR last GFR 15-59) [facility] Start: 12-06-2024 End: 12-06-2024 Patient encounter procedure 12/06/2024 12:00 PM EDT Appointment [facility] [address] [address] [place] [address] Quincy Penn, SUNDAY [address] [facility] [address] [facility] [place] [address] right great toe amputation [facility] Comment on above: right great toe amputation Start: 11-22-2024 End: 11-22-2024 Patient encounter procedure 11/22/2024 11:00 AM EDT Appointment [facility] [address] [address] [place] [address] Quincy Penn, [facility] [address] [place] [address] [address] [place] [address] right great toe, left 3rd toe [facility] Comment on above: right great toe, left 3rd toe Start: 11-16-2024 End: 11-16-2024 Follow-up encounter [facility] Medication Management Comment on above: Heart Failure FU- 3 month follow-up Heart Failure FU- 3 month follow-up, APPT CONFIRMED W/ 11/15/24 [place] Start: 11-11-2024 End: 11-11-2024 Amputation toe metatarsophalangeal joint TOE AMPUTATION Acute osteomyelitis of right foot (HCC) 11/11/2024 7:40 AM EDT [facility] Start: 11-10-2024 GFR test (Diabetes, CKD 3-4, OR last GFR 15-59) GFR test (Diabetes, CKD 3-4, OR last GFR 15-59) [facility] Start: 11-10-2024 Hemoglobin A1c measurement A1C test (Diabetic or Prediabetic) [facility] Start: 11-10-2024 Lipid panel Lipids [facility] Start: 11-09-2024 End: 11-09-2024 Patient encounter procedure 11/09/2024 1:30 PM EDT Procedure Visit [facility] [address] [place] [phone] Alice Cochran DPM [address] [place], [place] [id number] Arrived [facility] Comment on above: Arrived Start: 11-02-2024 GFR test (Diabetes, CKD 3-4, OR last GFR 15-59) GFR test (Diabetes, CKD 3-4, OR last GFR 15-59) [facility] Start: 11-01-2024 End: 11-01-2024 Patient encounter procedure 11/01/2024 11:30 AM EDT [facility]ment [facility] [address] [facility] [address] [place] [phone] Quincy Penn DPM [address] [facility] [address] [address] right great toe, 2nd and 3rd toe [facility] Comment on above: right great toe, 2nd and 3rd toe Start: 10-20-2024 End: 10-20-2024 Patient encounter procedure 10/20/2024 2:00 PM EDT Office Visit [facility] CARDIOLOGY Part [address] [address] Lev Duarte, CLINICAL SOCIOLOGIST - COURT RECORDER [address] [place] [address] 3 month/ [facility] Comment on above: 3 month/ Start: 10-12-2024 End: 10-12-2024 Follow-up encounter 10/12/2024 11:00 AM EDT Pharmacy Visit [facility] Medication Management [address] [place] [phone] Heart Failure FU- 3 month follow-up [facility] Medication Management Comment on above: Heart Failure FU- 3 month follow-up Start: 10-06-2024 GFR test (Diabetes, CKD 3-4, OR last GFR 15-59) GFR test (Diabetes, CKD 3-4, OR last GFR 15-59) [facility] Start: 10-05-2024 End: 10-05-2024 Patient encounter procedure [facility] Part [facility] Comment on above: 6 weeks PSA, PVR 6 weeks PSA, PVR. 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) Expected: 10/04/2024, Expires: 10/04/2025 [facility] Comment on above: Expected: 10/04/2024, Expires: Start: 10-04-2024 End: 10-04-2024 Patient encounter procedure 10/04/2024 11:00 AM EDT Appointment [facility] [address] [facility] [address] [place] [address] Quincy Penn, SUNDAY [address] [facility] [address] [address] right great toe 4 week f/u [facility] Comment on above: right great toe 4 week f/u Start: 09-24-2024 Hemoglobin A1c measurement A1C test (Diabetic or Prediabetic) [facility] Start: 09-19-2024 End: 09-19-2024 Patient encounter procedure 09/19/2024 2:00 PM EDT Office Visit [facility] Part [facility] [address] [facility] [place] [address] Lev Duarte, CLINICAL SOCIOLOGIST - COURT RECORDER [address] [place] [address] 3 month/ [facility] Comment on above: 3 month/ Start: 09-14-2024 End: 09-14-2024 Patient encounter procedure 09/14/2024 12:45 PM EDT Office Visit [facility] VASCULAR Part [address] [place] [address] Floyd Vee MD [address] [place] [address] [address] [facility] [place] [address] 3mo F/U from 06/15/24 [facility] Part [facility] Comment on above: 3mo F/U from 06/15/24 Start: 09-06-2024 End: 09-06-2025 XR Toes - right 2 Views [facility] Comment on above: Expected: 09/06/2024, Expires: 6 1 Occurrences starti ng 09/06/2024 until 09/06/2024 Start: 09-06-2024 End: 09-06-2024 Patient encounter procedure 09/06/2024 11:30 AM EDT Appointment [facility] [address] [place] [address] [address] [place] [address] Quincy Penn, DPM [address] [facility] [address] [place] [phone] right great toe 3 week f/u [facility] Comment on above: right great toe 3 week f/u Start: 08-26-2024 Depression Screen Depression Screen [facility] Start: 08-23-2024 Annual Wellness Visit (Medicare) Annual Wellness Visit (Medicare) [facility] Start: 08-22-2024 End: 08-22-2024 Patient encounter procedure 08/22/2024 10:45 AM EDT Office Visit [facility] UROLOGY [address] [place] [address] Arabella Dyer, PA-C [address] [place] [address] [address] [place] [address] 2-3 week follow up PVR [facility] Comment on above: 2-3 week follow up PVR Start: 08-16-2024 Annual Wellness Visit (Medicare) Annual Wellness Visit (Medicare) [facility] Start: 08-16-2024 End: 08-16-2024 Patient encounter procedure 08/16/2024 2:00 PM EDT Office Visit [facility] CARDIOLOGY [facility] [address] [facility] [place] [address] Alma Kan MD [address] [facility] [place] [address] 3 month follow up [facility] Comment on above: 3 month follow up Start: 08-16-2024 End: 08-16-2025 XR Toes - right 2 Views [facility] Comment on above: Expected: 08/16/2024, Expires: 1 Occurrences starti ng 08/16/2024 until 08/16/2024 Start: 08-08-2024 End: 08-08-2024 Patient encounter procedure 08/08/2024 1:30 PM EDT Procedure Visit [facility] [address] [place] [address] Alice Cochran DPM [address] [place] [address] [facility] Start: 08-04-2024 GFR test (Diabetes, CKD 3-4, OR last GFR 15-59) GFR test (Diabetes, CKD 3-4, OR last GFR 15-59) [facility] Start: 08-02-2024 End: 08-02-2024 Patient encounter procedure 08/02/2024 11:30 AM EDT Appointment [facility] [address] [facility] [address] [place] [phone] Quincy Penn DPM [address] [facility] [address] [facility] [place] [address] right great toe [facility] Comment on above: right great toe Start: 07-30-2024 Pneumococcal 0-64 years Vaccine (3 - PPSV23 if available, else PCV20) Pneumococcal 0-64 years Vaccine (3 - PPSV23 if available, else PCV20) [facility] Start: 07-30-2024 Pneumococcal 0-64 years Vaccine (3 - PPSV23 or PCV20) Pneumococcal 0-64 years Vaccine (3 - PPSV23 or PCV20) [facility] Start: 07-30-2024 Pneumococcal 0-64 years Vaccine (3 of 3 - PPSV23 or PCV20) Pneumococcal 0-64 years Vaccine (3 of 3 - PPSV23 or PCV20) [facility] Start: 07-28-2024 Pneumococcal 50+ years Vaccine (3 of 3 - PCV20 or PCV21) Pneumococcal 50+ years Vaccine (3 of 3 - PCV20 or PCV21) [facility] Start: 07-13-2024 End: 07-13-2024 Follow-up encounter [facility] Medication Management Comment on above: Heart Failure FU- 3 month follow-up Heart Failure FU- 3 month follow-up- LEFT VM REMINDING OF APPT 07/12/24 CO Start: 07-12-2024 End: 07-12-2024 Patient encounter procedure 07/12/2024 10:30 AM EST Appointment [facility] [address] [place] [address] [address] [place] [address] Quincy Penn DPM [address] [place] [address] [address] [address] bilateral lower legs [facility] Comment on above: bilateral lower legs Start: 06-30-2024 GFR test (Diabetes, CKD 3-4, OR last GFR 15-59) GFR test (Diabetes, CKD 3-4, OR last GFR 15-59) [facility] Start: 06-15-2024 End: 06-15-2024 Patient encounter procedure 06/15/2024 1:00 PM EST Office Visit [facility] V[facility] Part of [address] [place] [address] Floyd Vee MD [address] [place] [address] [address] [place] [phone] Critical Limb Ischemia BLE; 3 mth follow up with vascular duplex [facility] Comment on above: Critical Limb Ischemia BLE; 3 mth follow up with vascular duplex Start: 05-26-2024 End: 05-26-2024 Patient encounter procedure [facility] Comment on above: Arrived Start: 05-06-2024 End: 05-06-2024 Patient encounter procedure 05/06/2024 11:20 AM EST Office Visit [facility] [address] [place] [address] Alma Kan MD [address] [facility] [place] [address] 6 week [facility] Comment on above: 6 week Start: 04-25-2024 End: 04-25-2024 Patient encounter procedure 04/25/2024 1:00 PM EST Appointment [facility] Vascular Lab [address] [place] [phone] Floyd Vee MD [address] [facility] [address] [place] [address] EPIC* SCHED W PT SPOUSE [facility] Vascular Lab Comment on above: EPIC* SCHED W PT SPOUSE Start: 04-19-2024 End: 04-19-2024 Patient encounter procedure 04/19/2024 2:15 PM EST Procedure Visit [facility] [address] [place] [phone] Alice Cochran, DPBettina [address] [place] [address] [facility] Start: 04-13-2024 End: 04-13-2024 ambulatory 04/13/2024 11:00 AM EST Pharmacy Visit [facility] Medication Management [address] [place] [phone] Heart Failure FU [facility] Medication Management Comment on above: Heart Failure FU Start: 04-05-2024 End: 04-05-2024 ambulatory 04/05/2024 11:00 AM EST Pharmacy Visit [facility] Medication Management [address] [place] [address] Heart Failure FU [facility] Medication Management Comment on above: Heart Failure FU Start: 03-23-2024 End: 03-23-2024 Patient encounter procedure 03/23/2024 1:45 PM EDT Office Visit [facility] [address] [place] [phone] Alice Cochran, DPM [address] [place] [address] [facility] Start: 03-16-2024 End: 03-16-2024 Patient encounter procedure 03/16/2024 11:45 AM EDT Office Visit [facility] VASCULAR Part [address] [place] [address] Floyd Vee MD [address] [place] [address] [address] [place] [address] 4 weeks f/u IR [facility] Part [facility] Comment on above: 4 weeks f/u IR Start: 03-15-2024 End: 03-15-2024 Patient encounter procedure 03/15/2024 11:20 AM EDT Office Visit [facility] CARDIOLOG[facility] [address] [address] Alma Kan MD [address] [place] [address] [place] [address] 3 month [facility] Comment on above: 3 month Start: 03-08-2024 End: 03-08-2024 Admission to same day surgery center 03/08/2024 8:30 AM EDT - 03/08/2024 9:30 AM EDT Surgery [facility] Cardiac Cath/IR Lab [address] [place], [place] [phone] Floyd Vee MD [address] [place] [address] [address] [place] [address] Angiography lower ext bilat [facility] Cardiac Cath/IR Lab Comment on above: Angiography lower ext bilat Start: 03-08-2024 Subsequent hospital visit by physician 03/08/2024 8:30 AM EDT Hospital Encounter [facility] Cardiac Cath/IR Lab [address] [place] [address] Floyd Vee MD [address] [facility] [address] [place] [address] Critical limb ischemia of both lower extremities (HCC) [facility] Cardiac Cath/IR Lab Comment on above: Critical limb ischemia of both lower ext remities (HCC) Start: 02-24-2024 End: 02-24-2024 ambulatory 02/24/2024 11:00 AM EDT [facility] [address] [place] [address] Heart Failure FU started metolazone 3x wk [facility] Medication Management Comment on above: Heart Failure FU started metolazone 3x w k Start: 02-24-2024 End: 02-24-2024 Patient encounter procedure 02/24/2024 10:00 AM EDT Appointment [facility] Vascular Lab [address] [place] [address] MEDIA - JARAD W/ PT [facility] Vascular Lab Comment on above: MEDIA - JARAD W/ PT Start: 02-17-2024 End: 02-17-2024 Admission to same day surgery center 02/17/2024 3:00 PM EDT - 02/17/2024 4:00 PM EDT Surgery [facility] Cardiac Cath/EP Lab [facility] [place] [address] [place] [address] [facility] [address] [place] [address] simon / Percutaneous coronary intervention *arrive @ 0930 hydration* [facility] Cardiac Cath/EP Lab Comment on above: simon / Percutaneous coronary interventi on *arrive @ 0930 hydration* Start: 02-17-2024 Subsequent hospital visit by physician 02/17/2024 3:00 PM EDT Hospital Encounter [facility] Cardiac Cath/EP Lab [address] [place] [address] [place] [address] [place], [place] [phone] CAD (coronary artery disease) [facility] Cardiac Cath/EP Lab Comment on above: CAD (coronary artery disease) Start: 02-17-2024 End: 02-17-2024 Patient encounter procedure 02/17/2024 9:45 AM EDT Office Visit [facility] [address] [place] [phone] Alice Cochran DPM [address] [place], [place] [phone] Arrived [facility] Comment on above: Arrived Start: 02-15-2024 End: 02-15-2024 Patient encounter procedure 02/15/2024 10:45 AM EDT Office Visit [address] [place] [address] Floyd Vee MD [address] [facility] [address] [facility] [address] [place] [address] PVD (peripheral vascular disease) with claudication ([facility]) [facility] Comment on above: PVD (peripheral vascular disease) with c laudication ([facility]) Start: 02-15-2024 End: 02-15-2024 Patient encounter procedure 02/15/2024 9:30 AM EDT Office Visit [facility] [address] [place] [phone] Alice Cochran DPM [address] [place], [place] [phone] [facility] Start: 02-09-2024 End: 02-09-2024 Patient encounter procedure 02/09/2024 1:00 PM EDT Appointment [facility] Medication Management [address] [place] [phone] 2 month FU [facility] Medication Management Comment on above: 2 month FU Start: 02-03-2024 End: 02-03-2024 Patient encounter procedure 02/03/2024 10:40 AM EDT Office Visit [facility] CARDIOLOG[facility] Part [address] [place] [phone] Alma Kan MD [address] [place] [address] [place] [address] 3 month [facility] CARDI[facility] Comment on above: 3 month Start: 01-24-2024 COVID-19 Vaccine ( season) COVID-19 Vaccine ( season) [facility] Start: 01-24-2024 COVID-19 Vaccine ( season) COVID-19 Vaccine ( season) [facility] Start: 12-24-2023 Influenza vaccination [facility] Start: 12-23-2023 End: 12-23-2023 Patient encounter procedure 12/23/2023 9:30 AM EDT Initial consult [facility] [address] [facility] [address] [place] [phone] Adrian Delgadillo MD [address] [facility] [address] [place] [address] Correa for [facility] Cardioth[facility] Comment on above: From Dr. Correa for MVD Start: 12-21-2023 End: 12-21-2023 Admission to same day surgery center 12/21/2023 12:00 PM EDT - 12/21/2023 1:00 PM EDT Surgery [facility] Cardiac Cath/IR Lab [address] [facility] [place] [address] [place] [address] [place] [address] Left heart cath / coronary angiography [facility] Cardiac Cath/IR Lab Comment on above: Left heart cath / coronary angiography Start: 12-21-2023 Subsequent hospital visit by physician 12/21/2023 12:00 PM EDT Hospital Encounter [facility] Cardiac Cath/IR Lab [address] [facility] [place] [address] [place] [address] [place] [address] Abnormal stress test; Chest pain; CAD (coronary artery disease) [facility] Cardiac Cath/IR Lab Comment on above: Abnormal stress test; Chest pain; CAD (coronary artery disease) Start: 12-09-2023 End: 12-09-2023 Patient encounter procedure [facility] Medication Management Comment on above: CHF-NEW, coming after PT Start: 12-07-2023 End: 12-07-2023 Patient encounter procedure 12/07/2023 2:45 PM EDT Appointment [facility] Physical Therapy [address] [place] [address] [phone] Yumiko Montes PTA [facility] Physical Therapy Start: 12-06-2023 GFR test (Diabetes, CKD 3-4, OR last GFR 15-59) GFR test (Diabetes, CKD 3-4, OR last GFR 15-59) [facility] Start: 12-06-2023 Hemoglobin A1c measurement A1C test (Diabetic or Prediabetic) [facility] Start: 12-06-2023 Urine screening for protein Diabetic Alb to Cr ratio (uACR) test [facility] Start: 11-24-2023 End: 11-24-2023 Patient encounter procedure 11/24/2023 3:00 PM EDT Office Visit [facility] CARDIOLOG[facility] [address] [place] [address] Alma Kan MD [address] [place] [address] [place] [address] ED follow up/1-2 weeks per Lucius [facility] C[facility]IOLOG[facility] Comment on above: ED follow up/1-2 weeks per Lucius Start: 11-20-2023 End: 11-20-2023 Patient encounter procedure 11/20/2023 1:00 PM EDT Appointment [facility] [address] [place] [phone] Rashel Cárdenas, PT [facility] Comment on above: [facility] Start: 11-17-2023 End: 11-17-2023 Patient encounter procedure 11/17/2023 10:45 AM EDT Appointment [facility] [address] [place] [phone] Yumiko Montes [employer]PER[employer] [facility] Start: 11-11-2023 End: 11-11-2023 Patient encounter procedure 11/11/2023 2:45 PM EDT Appointment [facility] [address] [place] [phone] Yumiko Montes, INS[employer]ANCE [employer] SUPERVISOR [facility] Start: 11-11-2023 End: 11-11-2023 Patient encounter procedure 11/11/2023 10:30 AM EDT Appointment [facility] [address] [place] [phone] Yumiko Montes [employer] SUPER[employer]OR [facility] Start: 11-09-2023 End: 11-09-2023 Patient encounter procedure 11/09/2023 2:45 PM EDT Appointment [facility] [address] [place] [phone] Yumiko Montes [employer] SUPER[employer]OR [facility] Start: 11-06-2023 End: 11-06-2023 Patient encounter procedure 11/06/2023 12:15 PM EDT Appointment [facility] [address] [place] [phone] Huang Urbina, PT 30 day followup [facility] Comment on above: 30 day followup Start: 11-06-2023 Subsequent hospital visit by physician 11/06/2023 12:15 PM EDT Hospital Encounter [facility] Physical Therapy [address] [place] [phone] Yumiko Montes PTA [facility] Physical Therapy Start: 11-03-2023 End: 11-03-2023 Patient encounter procedure 11/03/2023 10:45 AM EDT Appointment [facility] Physical Therapy [address] [place] [phone] Yumiko Montes PTA [facility] Physical Therapy Start: 11-03-2023 End: 11-03-2023 Laser vaporization of prostate for urine flow CYSTOSCOPY TRANSURETHRAL RESECTION 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 11/03/2023 8:30 AM EDT [facility] Start: 10-29-2023 End: 10-29-2023 Patient encounter procedure 10/29/2023 9:15 AM EDT Appointment [facility] Physical Therapy [address] [place] [phone] Yumiko Montes PTA [facility] Physical Therapy Start: 10-27-2023 End: 10-27-2023 Patient encounter procedure 10/27/2023 10:30 AM EDT Appointment [facility] Physical Therapy [address] [place] [phone] Yumiko Montes PTA [facility] Physical Therapy Start: 10-26-2023 End: 10-26-2023 Patient encounter procedure 10/26/2023 11:15 AM EDT Procedure visit [facility] UR[facility] [address] [place] [address] Akira Ferrer MD [address] [place] [address], [address] [place] [address] cysto [facility] Comment on above: cysto Start: 10-16-2023 GFR test (Diabetes, CKD 3-4, OR last GFR 15-59) GFR test (Diabetes, CKD 3-4, OR last GFR 15-59) [facility] Start: 10-16-2023 Lipid panel Lipids [facility] Start: 10-01-2023 End: 10-01-2023 Patient encounter procedure 10/01/2023 11:00 AM EDT Office Visit [facility] [address] [place] [address] Nancy Roe, CLINICAL SOCIOLOGIST - COURT RECORDER [address] [place] [address] [address] [place] [address] 8wk F/U Labs prior PVR [facility] Comment on above: 8wk F/U Labs prior PVR Start: 09-17-2023 End: 09-17-2023 Patient encounter procedure 09/17/2023 1:40 PM EDT Office Visit [facility] C[facility] [address] [place] [address] Alma Kan MD [address] [place] [address] [place] [address] 6 month [facility] Comment on above: 6 month Start: 08-05-2023 End: 08-05-2023 Patient encounter procedure 08/05/2023 11:30 AM EDT Office Visit [address] [place] [address] Arabella Dyer, PA-C [address] [place] [address] [address] [place] [address] 3 month f/u, PVR [facility] Comment on above: 3 month f/u, PVR Start: 05-13-2023 GFR test (Diabetes, CKD 3-4, OR last GFR 15-59) GFR test (Diabetes, CKD 3-4, OR last GFR 15-59) [facility] Start: 03-04-2023 End: 03-04-2023 Patient encounter procedure 03/04/2023 Office Visit Cardiology Alma Kan MD [address] [place] [address] [place] [address] [facility] Start: 02-05-2023 End: 02-05-2023 Patient encounter procedure 02/05/2023 Office Visit Urology [facility] Start: 01-28-2023 End: 01-28-2023 Patient encounter procedure 01/28/2023 Appointment Radiology [facility] MRI Start: 01-27-2023 End: 01-27-2023 Patient encounter procedure 01/27/2023 Appointment Radiology [facility] MRI Start: 01-01-2023 End: 01-01-2023 Patient encounter procedure 01/01/2023 Office Visit Cardiology Alma Kan MD [address] [place] [address] [facility] Start: 12-23-2022 Influenza vaccination [facility] Start: 12-22-2022 End: 12-22-2022 Patient encounter procedure 12/22/2022 [facility] Start: 12-18-2022 End: 12-18-2022 Patient encounter procedure 12/18/2022 Appointment Physical Therapy Rashel Cárdenas PT [facility] Start: 12-17-2022 End: 12-17-2022 Patient encounter procedure 12/17/2022 Appointment Physical Therapy Shirin Bajwa PTA [facility] Start: 12-15-2022 End: 12-15-2022 Patient encounter procedure 12/15/2022 Appointment Radiology [facility] CT Scan Start: 12-11-2022 End: 12-11-2022 Patient encounter procedure 12/11/2022 Appointment Physical Therapy Rsahel Cárdenas PT [facility] Start: 12-08-2022 End: 12-08-2022 Patient encounter procedure 12/08/2022 Appointment Physical Therapy Shirin Bajwa PTA [facility] Start: 12-03-2022 End: 12-03-2022 Patient encounter procedure 12/03/2022 Appointment Physical Therapy Shirin Bajwa [employer] SUPERVISOR [facility] Start: 12-02-2022 End: 12-02-2022 Patient encounter procedure [facility] Start: 11-20-2022 End: 11-20-2022 Patient encounter procedure 11/20/2022 Appointment Physical Therapy Rashel Cárdenas, PT [facility] Start: 11-18-2022 End: 11-18-2022 Patient encounter procedure 11/18/2022 Appointment Physical Therapy Abby Quintero, PT [facility] Start: 11-14-2022 End: 11-14-2022 Patient encounter procedure 11/14/2022 Appointment Physical Therapy Sharonda Gonzalez, [employer] SUPERVISOR [facility] Start: 11-07-2022 End: 11-07-2022 Patient encounter procedure [facility] Start: 11-06-2022 [facility] Start: 11-05-2022 End: 11-05-2022 Patient encounter procedure 11/05/2022 Office Visit Urology [facility] Start: 11-03-2022 End: 11-03-2022 Patient encounter procedure 11/03/2022 Appointment Physical Therapy Shirin Bajwa [employer] SUPERVISOR [facility] Start: 10-31-2022 End: 10-31-2022 Patient encounter procedure 10/31/2022 Appointment Physical Therapy Shirin Bajwa, [employer] SUPERVISOR [facility] Start: 10-27-2022 End: 10-27-2022 Patient encounter procedure 10/27/2022 Appointment Physical Therapy Shirin Bajwa [employer] SUPERVISOR [facility] Start: 10-24-2022 End: 10-24-2022 Patient encounter procedure 10/24/2022 Appointment Physical Therapy Chris Sau[place], PT [facility] Start: 10-22-2022 End: 10-22-2022 Patient encounter procedure 10/22/2022 Appointment Physical Therapy Shirin Bajwa [employer]ANCE [employer]ING SUPERVISOR [facility] Start: 10-17-2022 End: 10-17-2022 Patient encounter procedure 10/17/2022 Appointment Physical Therapy Shirin Bajwa INS[employer]ANCE [employer]IC[employer]ING SUPERVISOR [facility] Start: 10-16-2022 End: 10-16-2022 Patient encounter procedure 10/16/2022 Office Visit Cardiology Alma Kan MD [address] [place] [address] [facility] Start: 10-15-2022 End: 10-15-2022 Patient encounter procedure 10/15/2022 Office Visit Cardiology Alma Kan MD [address] [place] [address] [facility] Start: 10-13-2022 End: 10-13-2022 Patient encounter procedure 10/13/2022 Appointment Physical Therapy Shirin Bajwa INS[employer]ING SUPERVISOR [facility] Start: 10-09-2022 End: 10-09-2022 Patient encounter procedure 10/09/2022 Appointment Physical Therapy Chris Sau[place]a, PT [facility] Start: 10-03-2022 End: 10-03-2022 Patient encounter procedure 10/03/2022 Appointment Physical Therapy Shirin Bajwa [employer] SUPERVISOR [facility] Start: 09-29-2022 End: 09-29-2022 Patient encounter procedure 09/29/2022 Appointment Physical Therapy Shirin Bajwa [employer]ING SUPERVISOR [facility] Start: 09-26-2022 End: 09-26-2022 Patient encounter procedure 09/26/2022 Appointment Physical Therapy Shirin Bajwa [employer]ING SUPERVISOR [facility] Start: 09-22-2022 End: 09-22-2022 Patient encounter procedure 09/22/2022 Appointment Physical Therapy Shirin Bajwa [employer] LIC[employer]ING SUPERVISOR [facility] Start: 09-19-2022 End: 09-19-2022 Patient encounter procedure 09/19/2022 Appointment Physical Therapy Rashel Cárdenas PT [facility] Start: 09-15-2022 End: 09-15-2022 Patient encounter procedure 09/15/2022 Appointment Physical Therapy Shirin Bajwa [employer] [facility] Start: 09-12-2022 End: 09-12-2022 Patient encounter procedure 09/12/2022 Appointment Physical Therapy Shirin Bajwa [employer]PER[employer] [facility] Start: 09-09-2022 End: 09-09-2022 Patient encounter procedure 09/09/2022 Appointment Physical Therapy Chris Sauceda, PT [facility] Start: 09-09-2022 Creatinine measurement Creatinine [facility] Start: 09-09-2022 Potassium [Moles/volume] in Serum or Plasma Potassium [facility] Start: 09-08-2022 End: 09-08-2022 Patient encounter procedure 09/08/2022 Appointment Physical Therapy Shirin Bajwa PTA [facility] Start: 09-05-2022 End: 09-05-2022 Patient encounter procedure 09/05/2022 Appointment Physical Therapy Chris Sauceda, PT [facility] Start: 09-02-2022 End: 09-02-2022 Patient encounter procedure 09/02/2022 Office Visit Urology [facility] Start: 09-01-2022 End: 09-01-2022 Patient encounter procedure 09/01/2022 Appointment Physical Therapy Shirin Bajwa PTA [facility] Start: 08-29-2022 End: 08-29-2022 Patient encounter procedure 08/29/2022 Appointment Physical Therapy Shirin Bajwa, [employer] [facility] Start: 08-25-2022 End: 08-25-2022 Patient encounter procedure 08/25/2022 Appointment Physical Therapy Chris Sauceda, PT [facility] Start: 07-17-2022 End: 07-17-2022 Patient encounter procedure [facility] Start: 07-15-2022 End: 07-15-2022 Admission to same day surgery center 07/15/2022 Surgery IP Unit Akira Ferrer MD [address] [place] [address], [address] [place] [address] CYSTOSCOPY TRANSURETHRAL RESECTION PROSTATE LASER-PVP GREENLIGHT [facility] Comment on above: CYSTOSCOPY TRANSURETHRAL RESECTION PROST ATE LASER-PVP GREENLIGHT Start: 07-15-2022 End: 07-15-2022 Laser vaporization of prostate for urine flow [facility] Start: 07-15-2022 Subsequent hospital visit by physician 07/15/2022 Hospital Encounter IP Unit Akira Ferrer MD [address], [address] [place], [place] [id number] [facility] Start: 07-15-2022 End: 07-15-2022 Admission to same day surgery center 07/15/2022 Surgery IP Unit Akira Ferrer MD [address], [address] [place], [place] [id number] CYSTOSCOPY TRANSURETHRAL RESECTION PROSTATE LASER-PVP GREENLIGHT [facility] Comment on above: CYSTOSCOPY TRANSURETHRAL RESECTION PROST ATE LASER-PVP GREENLIGHT Start: 07-15-2022 End: 07-15-2022 Laser vaporization of prostate for urine flow CYSTOSCOPY TRANSURETHRAL RESECTION PROSTATE LASER Enlarged prostate with urinary obstruction 07/15/2022 11:05 AM EST [facility] Start: 07-15-2022 Subsequent hospital visit by physician 07/15/2022 Hospital Encounter IP Unit Akira Ferrer MD [address], [address] [place], [place] [phone] [facility] Start: 07-14-2022 End: 07-14-2022 Patient encounter procedure 07/14/2022 Appointment Stress Lab [facility] Stress Lab Start: 07-04-2022 End: 07-04-2022 Patient encounter procedure 07/04/2022 Office Visit Cardiology Alma Kan MD [address] [place] [address] [place] [id number] [facility] Start: 06-06-2022 Hemoglobin A1c measurement A1C test (Diabetic or Prediabetic) [facility] Start: 06-01-2022 Creatinine measurement Creatinine monitoring [facility] Start: 06-01-2022 Potassium monitoring Potassium monitoring [facility] Start: 05-30-2022 End: 05-30-2022 Patient encounter procedure 05/30/2022 Procedure visit Urology [facility] Start: 05-29-2022 Lipid panel [facility] Start: 05-27-2022 Hemoglobin A1c measurement A1C test (Diabetic or Prediabetic) [facility] Start: 05-23-2022 End: 05-23-2022 Patient encounter procedure 05/23/2022 Appointment Physical Therapy Huang Urbina, PT [facility] Start: 05-22-2022 End: 05-22-2022 Patient encounter procedure 05/22/2022 Appointment Physical Therapy Huang Urbina, PT [facility] Start: 05-15-2022 End: 05-15-2022 Patient encounter procedure 05/15/2022 Appointment Physical Therapy Huang Urbina, PT [facility] Start: 05-13-2022 End: 05-13-2022 Patient encounter procedure 05/13/2022 Office Visit Urology [facility] Start: 05-12-2022 End: 05-12-2022 Patient encounter procedure 05/12/2022 Appointment Physical Therapy Huang Urbina, PT [facility] Start: 05-06-2022 End: 05-06-2022 Patient encounter procedure 05/06/2022 Appointment Physical Therapy Huang Urbina, PT [facility] Start: 04-11-2022 End: 04-11-2022 Patient encounter procedure 04/11/2022 Appointment Physical Therapy Doc Agrawal, [employer]PER[employer]OR [facility] Start: 04-09-2022 End: 04-09-2022 Patient encounter procedure 04/09/2022 Appointment Physical Therapy Chris Sauceda, PT [facility] Start: 04-04-2022 End: 04-04-2022 Patient encounter procedure 04/04/2022 Office Visit Cardiology Alma Kan MD [address] [place] [address] [place] [id number] [facility] Start: 04-02-2022 End: 04-02-2022 Patient encounter procedure 04/02/2022 Appointment Physical Therapy Doc Agrawal, [employer]PER[employer]OR [facility] Start: 03-31-2022 End: 03-31-2022 Patient encounter procedure 03/31/2022 Appointment Physical Therapy Chris Sauceda, PT [facility] Start: 03-26-2022 End: 03-26-2022 Patient encounter procedure 03/26/2022 Appointment Physical Therapy Rashel Cárdenas, PT [facility] Start: 03-24-2022 End: 03-24-2022 Patient encounter procedure 03/24/2022 Appointment Physical Therapy Huang Urbina PT [facility] Start: 03-20-2022 End: 03-20-2022 [facility] encounter [facility] Start: 03-18-2022 End: 03-18-2022 Patient encounter procedure 03/18/2022 Appointment Physical Therapy Chris Sauceda, PT [facility] Start: 03-18-2022 End: 03-18-2022 Patient encounter procedure [facility] Start: 03-14-2022 End: 03-14-2022 Patient encounter procedure 03/14/2022 Appointment Physical Therapy Yumiko Montes, [employer]PER[employer] [facility] Start: 03-06-2022 End: 03-06-2022 Patient encounter procedure 03/06/2022 Appointment Physical Therapy Rashel Cárdenas, PT [facility] Start: 03-03-2022 End: 03-03-2022 Patient encounter procedure 03/03/2022 Appointment Physical Therapy Yumiko Montes, [employer] SUPERVISOR [facility] Start: 02-20-2022 End: 02-20-2022 Patient encounter procedure 02/20/2022 Appointment Physical Therapy Rashel Cárdenas, PT [facility] Start: 02-18-2022 End: 02-18-2022 Patient encounter procedure [facility] Start: 02-14-2022 End: 02-14-2022 Patient encounter procedure 02/14/2022 Appointment Physical Therapy Huang Urbina, PT [facility] Start: 02-07-2022 End: 02-07-2022 Patient encounter procedure 02/07/2022 Appointment Physical Therapy Yumiko Montes, [employer]PER[employer] [facility] Start: 02-06-2022 End: 02-06-2022 Patient encounter procedure 02/06/2022 Appointment Physical Therapy Rashel Cárdenas, PT [facility] Start: 01-31-2022 End: 01-31-2022 Patient encounter procedure [facility] Start: 01-30-2022 End: 01-30-2022 Patient encounter procedure [facility] Start: 01-28-2022 End: 01-28-2022 Patient encounter procedure 01/28/2022 Appointment Physical Therapy Rashel Cárdenas, PT [facility] Physical Therapy Start: 01-27-2022 End: 01-27-2022 Patient encounter procedure 01/27/2022 Appointment Cardiac Rehabilitation [facility] Cardiac Rehab Start: 01-24-2022 End: 01-24-2022 Patient encounter procedure 01/24/2022 Appointment Physical Therapy Rashel Cárdenas, PT [facility] Physical Therapy Start: 01-23-2022 Influenza vaccination [facility] Start: 01-23-2022 End: 01-23-2022 Patient encounter procedure [facility] Cardiac Rehab Start: 01-21-2022 End: 01-21-2022 Patient encounter procedure 01/21/2022 Appointment Physical Therapy Doc Agrawal PTA [facility] Physical Therapy Start: 01-20-2022 End: 01-20-2022 Patient encounter procedure 01/20/2022 Appointment Cardiac Rehabilitation [facility] Cardiac Rehab Start: 01-16-2022 End: 01-16-2022 Patient encounter procedure [facility] Cardiac Rehab Start: 01-14-2022 End: 01-14-2022 Patient encounter procedure 01/14/2022 Appointment Physical Therapy Colton Lim [facility] Physical Therapy Start: 01-13-2022 End: 01-13-2022 Patient encounter procedure 01/13/2022 Appointment Cardiac Rehabilitation [facility] Cardiac Rehab Start: 01-10-2022 End: 01-10-2022 Patient encounter procedure 01/10/2022 Appointment Physical Therapy Doc Agrawal PTA [facility] Physical Therapy Start: 01-09-2022 End: 01-09-2022 Patient encounter procedure 01/09/2022 Appointment Cardiac Rehabilitation [facility] Cardiac Rehab Start: 01-08-2022 End: 01-08-2022 Patient encounter procedure 01/08/2022 Appointment Physical Therapy Doc Agrawal PTA [facility] Physical Therapy Start: 01-06-2022 End: 01-06-2022 Patient encounter procedure [facility] Cardiac Rehab Start: 01-03-2022 End: 01-03-2022 Patient encounter procedure 01/03/2022 Appointment Physical Therapy Doc Agrawal PTA [facility] Physical Therapy Start: 01-02-2022 End: 01-02-2022 Patient encounter procedure [facility] Start: 01-01-2022 End: 01-01-2022 Patient encounter procedure 01/01/2022 Appointment Physical Therapy Doc Agrawal PTA [facility] Physical Therapy Start: 12-30-2021 End: 12-30-2021 Patient encounter procedure [facility] Cardiac Rehab Start: 12-27-2021 End: 12-27-2021 Patient encounter procedure 12/27/2021 Appointment Physical Therapy Rashel Cárdenas, PT [facility] Physical Therapy Start: 12-26-2021 End: 12-26-2021 Patient encounter procedure [facility] Cardiac Rehab Start: 12-24-2021 End: 12-24-2021 Patient encounter procedure 12/24/2021 Appointment Physical Therapy Colton Lim [facility] Physical Therapy Start: 12-23-2021 Influenza vaccination Flu vaccine (#1) [facility] Start: 12-23-2021 End: 12-23-2021 Patient encounter procedure 12/23/2021 Appointment Cardiac Rehabilitation [facility] Cardiac Rehab Start: 12-20-2021 End: 12-20-2021 Patient encounter procedure 12/20/2021 Appointment Physical Therapy Rashel Cárdenas, PT [facility] Physical Therapy Start: 12-19-2021 End: 12-19-2021 Patient encounter procedure 12/19/2021 Appointment Cardiac Rehabilitation [facility] Cardiac Rehab Start: 12-18-2021 Subsequent hospital visit by physician 12/18/2021 Hospital Encounter Physical Therapy Doc Agrawal PTA [facility] Physical Therapy Start: 12-18-2021 End: 12-18-2021 Patient encounter procedure 12/18/2021 Appointment Cardiac Rehabilitation [facility] Cardiac Rehab Start: 12-16-2021 End: 12-16-2021 Patient encounter procedure 12/16/2021 Appointment Cardiac Rehabilitation [facility] Cardiac Rehab Start: 12-12-2021 End: 12-12-2021 Patient encounter procedure 12/12/2021 Appointment Cardiac Rehabilitation [facility] Cardiac Rehab Start: 12-11-2021 End: 12-11-2021 Patient encounter procedure 12/11/2021 Appointment Cardiac Rehabilitation [facility] Cardiac Rehab Start: 12-09-2021 End: 12-09-2021 Patient encounter procedure 12/09/2021 Appointment Cardiac Rehabilitation [facility] Cardiac Rehab Start: 12-05-2021 End: 12-05-2021 Patient encounter procedure 12/05/2021 Appointment Cardiac Rehabilitation [facility] Cardiac Rehab Start: 12-04-2021 End: 12-04-2021 Patient encounter procedure 12/04/2021 Appointment Cardiac Rehabilitation [facility] Cardiac Rehab Start: 12-02-2021 End: 12-02-2021 Patient encounter procedure 12/02/2021 Appointment Cardiac Rehabilitation [facility] Cardiac Rehab Start: 11-28-2021 End: 11-28-2021 Patient encounter procedure 11/28/2021 Appointment Cardiac Rehabilitation [facility] Cardiac Rehab Start: 11-25-2021 End: 11-25-2021 Patient encounter procedure 11/25/2021 Appointment Cardiac Rehabilitation [facility] Cardiac Rehab Start: 11-21-2021 End: 11-21-2021 Patient encounter procedure 11/21/2021 Appointment Cardiac Rehabilitation [facility] Cardiac Rehab Start: 11-18-2021 End: 11-18-2021 Patient encounter procedure 11/18/2021 Appointment Cardiac Rehabilitation [facility] Cardiac Rehab Start: 11-14-2021 End: 11-14-2021 Patient encounter procedure 11/14/2021 Appointment Cardiac Rehabilitation [facility] Cardiac Rehab Start: 11-11-2021 End: 11-11-2021 Patient encounter procedure 11/11/2021 Appointment Cardiac Rehabilitation [facility] Cardiac Rehab Start: 11-07-2021 End: 11-07-2021 Patient encounter procedure 11/07/2021 Appointment Cardiac Rehabilitation [facility] Cardiac Rehab Start: 11-04-2021 End: 11-04-2021 Patient encounter procedure 11/04/2021 Appointment Cardiac Rehabilitation [facility] Cardiac Rehab Start: 10-31-2021 End: 10-31-2021 Patient encounter procedure 10/31/2021 Appointment Cardiac Rehabilitation [facility] Cardiac Rehab Start: 10-28-2021 End: 10-28-2021 Patient encounter procedure 10/28/2021 Appointment Cardiac Rehabilitation [facility] Cardiac Rehab Start: 10-24-2021 End: 10-24-2021 Patient encounter procedure 10/24/2021 Appointment Cardiac Rehabilitation [facility] Cardiac Rehab Start: 10-21-2021 End: 10-21-2021 Patient encounter procedure 10/21/2021 Appointment Cardiac Rehabilitation [facility] Cardiac Rehab Start: 10-17-2021 End: 10-17-2021 Patient encounter procedure 10/17/2021 Appointment Cardiac Rehabilitation [facility] Cardiac Rehab Start: 10-14-2021 End: 10-14-2021 Patient encounter procedure 10/14/2021 Appointment Cardiac Rehabilitation [facility] Cardiac Rehab Start: 10-10-2021 End: 10-10-2021 Patient encounter procedure 10/10/2021 Appointment Cardiac Rehabilitation [facility] Cardiac Rehab Start: 10-09-2021 End: 10-09-2021 Patient encounter procedure 10/09/2021 Appointment Cardiac Rehabilitation [facility] Cardiac Rehab Start: 10-07-2021 End: 10-07-2021 Patient encounter procedure 10/07/2021 Appointment Cardiac Rehabilitation [facility] Cardiac Rehab Start: 10-03-2021 End: 10-03-2021 Patient encounter procedure 10/03/2021 Appointment Cardiac Rehabilitation [facility] Cardiac Rehab Start: 09-30-2021 End: 09-30-2021 Patient encounter procedure 09/30/2021 Appointment Cardiac Rehabilitation [facility] Cardiac Rehab Start: 09-27-2021 End: 09-27-2021 Patient encounter procedure 09/27/2021 Office Visit Cardiology Alma Kan MD [address] [place] [address] [facility] C[facility] Start: 09-16-2021 End: 09-16-2021 Patient encounter procedure 09/16/2021 Office Visit Urology Akira Ferrer MD [address], [address] [place] [address] [facility] Start: 08-15-2021 Prostate specific antigen measurement Prostate Specific Antigen (PSA) Screening or Monitoring GALLO DOMÍNGUEZ [facility] Start: 06-03-2021 End: 06-03-2021 Patient encounter procedure 06/03/2021 Appointment IP Unit [facility] [employer] Start: 05-01-2021 End: 05-01-2021 Patient encounter procedure 05/01/2021 Appointment Stress Lab [facility] Stress Lab Start: 04-30-2021 End: 04-30-2021 Patient encounter procedure [facility] Start: 01-23-2021 Influenza vaccination Flu vaccine (#1) [employer] Start: 08-22-2020 End: 08-22-2020 Office Visit 08/22/2020 Office Visit Urology Akira Ferrer MD [address], [address] [place], [place] [phone] [email or web address] Start: 07-26-2020 End: 07-26-2020 Office Visit 07/26/2020 Office Visit Endocrinology Octavio Lozada MD [address] [place] [address] [facility] Start: 01-24-2020 Influenza vaccination Flu vaccine (#1) [employer] Phone: Start: 2019 Respiratory Syncytial Virus (RSV) or age 60 yrs+ (1 - 1-dose 60+ series) Respiratory Syncytial Virus (RSV) or age 60 yrs+ (1 - 1-dose 60+ series) [facility] [employer] Start: 2019 Respiratory Syncytial Virus (RSV) or age 60 yrs+ (1 - Risk 60-74 years 1-dose series) Respiratory Syncytial Virus (RSV) or age 60 yrs+ (1 - Risk 60-74 years 1-dose series) [facility] [employer] Start: 07-30-2009 Screening for malignant neoplasm of colon Colon cancer screen colonoscopy [employer] Phone: Start: 07-30-2009 Shingles Vaccine (1 of 2) Shingles Vaccine (1 of 2) [facility] Start: 07-30-2004 Screening for malignant neoplasm of colon [facility] Start: 1999 Diabetes screen Diabetes screen [employer] Phone: Start: 07-30-1978 DTaP/Tdap/Td vaccine (1 - Tdap) DTaP/Tdap/Td vaccine (1 - Tdap) [facility] Start: 07-30-1977 Diabetic microalbuminuria test Diabetic microalbuminuria test [facility] Start: 07-30-1977 Diabetic retinal exam Diabetic retinal exam [facility] Start: 07-30-1977 Glaucoma screening Diabetic retinal exam [email or web address] Start: 07-30-1977 Hepatitis C screening Hepatitis C screen [facility] Start: 07-30-1977 Urine screening for protein [facility] Start: 07-30-1974 HIV screening HIV screen [facility] Start: 1971 COVID-19 Vaccine (1) COVID-19 Vaccine (1) [facility] Start: 1971 Depression Screen Depression Screen [facility] Start: 07-30-1969 Diabetic foot examination Diabetic foot exam [facility] Start: 07-30-1969 Diabetic retinal exam Diabetic retinal exam [facility] Start: 07-30-1969 Hemoglobin A1c measurement A1C test (Diabetic or Prediabetic) [facility] Start: 07-30-1969 Lipid panel Lipid screen [facility] Start: 07-30-1965 Pneumococcal 0-64 years Vaccine (1 - PCV) Pneumococcal 0-64 years Vaccine (1 - PCV) [facility] Start: 07-30-1965 Pneumococcal 0-64 years Vaccine (1 of 2 - PCV) Pneumococcal 0-64 years Vaccine (1 of 2 - PCV) [email or web address] Start: 07-30-1965 Pneumococcal 0-64 years Vaccine (1 of 2 - PPSV23) Pneumococcal 0-64 years Vaccine (1 of 2 - PPSV23) [facility] Start: 07-30-1964 COVID-19 Vaccine (1) COVID-19 Vaccine (1) [facility] Start: 01-31-1960 COVID-19 Vaccine (#1) COVID-19 Vaccine (#1) [facility] [employer] Start: 1959 Creatinine measurement Creatinine monitoring [facility] Start: 1959 Hepatitis C screening Hepatitis C screen [facility] Start: 1959 Potassium monitoring Potassium monitoring [facility] [employer] Adult NIV/Positive A irway Pressure Adult NIV/Positive Airway Pressure Respiratory Care Routine Every 4hr until discontinued starting 02/25/2024 [facility] [employer] Comment on above: Every 4hr until discontinued starting End: 05-24-2022 [facility] [employer] Work Phone: Comment on above: Once for 1 Occurrences starting 05/24/20 until 05/24/2022 End: 04-24-2021 Baseline Diagnostic Sleep Study Baseline Diagnostic Sleep Study Sleep Center Routine One Time for 1 Occurrences starting 04/24/2021 until 04/24/2021 [employer] Phone: Comment on above: One Time for 1 Occurrences starting 05/2020 until 04/24/2021 Basic metabolic 2000 panel - Serum or Plasma Basic Metabolic Panel Lab Routine Daily until discontinued starting 05/28/2021, 5 completed [employer] Phone: Comment on above: Daily until discontinued starting 2021, 5 completed End: 02-29-2024 Basic Metabolic Panel w/ Reflex to MG Basic Metabolic Panel w/ Reflex to MG Lab Routine Daily for 5 Days starting 02/25/2024 until 02/29/2024, 3 completed [employer] Comment on above: Daily for 5 Days starting 02/25/2024 unt il 02/29/2024, 3 completed CARDIAC PHASE II CARDIAC PHASE I I Card Rehab Ordered: 10/03/2021 [employer] Comment on above: Ordered: 10/03/2021 CARDIAC PHASE II CARDIAC PHASE I I Card Rehab Ordered: 10/17/2021 [employer] Comment on above: Ordered: 10/17/2021 CARDIAC PHASE II CARDIAC PHASE I I Card Rehab Ordered: 10/28/2021 [employer] Comment on above: Ordered: 10/28/2021 CARDIAC PHASE II CARDIAC PHASE I I Card Rehab Ordered: 12/02/2021 [employer] Comment on above: Ordered: 12/02/2021 CARDIAC PHASE II CARDIAC PHASE I I Card Rehab Ordered: 12/05/2021 [employer] Comment on above: Ordered: 12/05/2021 CBC panel - Blood by Automated count CBC Lab Routine Daily until discontinued starting 05/28/2021, 5 completed [employer] Phone: Comment on above: Daily until discontinued starting 2021, 5 completed End: 02-29-2024 CBC W Auto Differential panel - Blood CBC auto differential Lab Routine Daily for 5 Days starting 02/25/2024 until 02/29/2024, 3 completed [employer] Comment on above: Daily for 5 Days starting 02/25/2024 unt il 02/29/2024, 3 completed Comprehensive metabo lic 2000 panel - Serum or Plasma [facility] CPAP CPAP Respiratory Care Routine Every 4hr until discontinued starting 05/30/2021 [employer] Phone: Comment on above: Every 4hr until discontinued starting End: 07-25-2020 Culture, Urine Culture, Urine Microbiology Routine BPH with obstruction/lower urinary tract symptoms Incomplete emptying of bladder 1 Occurrences starting 07/25/2020 until 07/25/2020 [employer] Phone: Comment on above: 1 Occurrences starting 07/25/2020 until 07/25/2020 Culture, Urine Culture, Urine Microbiology Routine BPH with obstruction/lower urinary tract symptoms Incomplete emptying of bladder 07/25/2020 3:30 PM EST [employer] Phone: End: 05-13-2022 Culture, Urine [employer] Phone: Comment on above: 1 Occurrences starting 05/13/2022 until 05/13/2022 End: 08-05-2022 Culture, Urine [employer] Work Phone: Comment on above: 1 Occurrences starting 08/05/2022 until 08/05/2022 End: 08-16-2024 Culture, Wound (with Gram Stain) [email or web address] Comment on above: One Time for 1 Occurrences starting 07/24 until 08/16/2024 EKG 12 Lead EKG 12 Lead ECG Routine 07/22/2024 9:31 PM EST [email or web address] Work Phone: Glucose [Mass/volume ] in Serum or Plasma [employer] Phone: Comment on above: 4X Daily (AC & HS) until discontinued st arting 05/27/2021 As Needed until disc ontinued starting 05/27/2021 Glucose [Mass/volume ] in Serum or Plasma [employer] Comment on above: 4X Daily (AC & HS) until discontinued st arting 02/24/2024 As Needed until disc ontinued starting 02/24/2024 End: 11-11-2024 Glucose [Mass/volume] in Serum or Plasma [employer] Phone: Comment on above: One Time for 1 Occurrences starting 10/24 until 11/11/2024 Home BIPAP or CPAP Home BIPAP or CPAP Respiratory Care Routine QHS until discontinued starting 02/25/2024 [employer] Phone: Comment on above: QHS until discontinued starting 02/25/20 24 L hrt cath w/njx l ventriculography img s&i LEFT HEART CATH Chest pain [employer] Microalbumin [Mass/v olume] in Urine [facility] End: 05-24-2022 MISCELLANEOUS TESTING [employer] Phone: Comment on above: Once for 1 Occurrences starting 05/24/20 22 until 05/24/2022 End: 10-20-2024 MR Foot - right WO contrast [email or web address] Comment on above: 1 Occurrences starting 10/20/2024 until 10/20/2024 Oxygen therapy [Mini mum Data Set] Initiate Oxygen Therapy Protocol Respiratory Care Routine Daily until discontinued starting 05/29/2021 [employer] Phone: Comment on above: Daily until discontinued starting 2021 Oxygen therapy [M[employer] mum Data Set] Initiate Oxygen Therapy Protocol Respiratory Care Routine As Needed until discontinued starting 07/15/2022 [employer] Phone: Comment on above: As Needed until discontinued starting Oxygen therapy [M[employer] mum Data Set] Initiate Oxygen Therapy Protocol Respiratory Care Routine As Needed until discontinued starting 11/03/2023 [employer] Comment on above: As Needed until discontinued starting Oxygen therapy [M[employer] Data Set] Initiate Oxygen Therapy Protocol Respiratory Care Routine As Needed until discontinued starting 12/21/2023 [employer] Comment on above: As Needed until discontinued starting Oxygen therapy [[employer] Data Set] Initiate Oxygen Therapy Protocol Respiratory Care Routine As Needed until discontinued starting 12/21/2023 [employer] Comment on above: As Needed until discontinued starting Oxygen therapy [[employer] Data Set] Initiate Oxygen Therapy Protocol Respiratory Care Routine Daily until discontinued starting 02/24/2024 [employer] Comment on above: Daily until discontinued starting 2023 Oxygen therapy [M[employer] Data Set] Initiate Oxygen Therapy Protocol Respiratory Care Routine Eschar of toe Gangrene of toe of both feet (HCC) Critical limb ischemia of both lower extremities (HCC) As Needed until discontinued starting 07/12/2024 [email or web address] Comment on above: As Needed until discontinued starting Oxygen therapy [[employer] Data Set] Initiate Oxygen Therapy Protocol Respiratory Care Routine Eschar of toe Critical limb ischemia of both lower extremities (HCC) Gangrene of toe of both feet (HCC) As Needed until discontinued starting 08/16/2024 [email or web address] Comment on above: As Needed until discontinued starting Oxygen therapy [[employer] Data Set] Initiate Oxygen Therapy Protocol Respiratory Care Routine Critical limb ischemia of both lower extremities As Needed until discontinued starting 09/06/2024 [email or web address] Comment on above: As Needed until discontinued starting Oxygen therapy [[employer] Data Set] Initiate Oxygen Therapy Protocol Respiratory Care Routine As Needed until discontinued starting 10/04/2024 [email or web address] Comment on above: As Needed until discontinued starting Oxygen therapy [[employer] Data Set] Initiate Oxygen Therapy Protocol Respiratory Care Routine Critical limb ischemia of both lower extremities (HCC) As Needed until discontinued starting 11/01/2024 [email or web address] Comment on above: As Needed until discontinued starting Oxygen therapy [[employer] Data Set] Initiate Oxygen Therapy Protocol Respiratory Care Routine As Needed until discontinued starting 11/11/2024 [email or web address] Comment on above: As Needed until discontinued starting Oxygen therapy [[employer] Data Set] Initiate Oxygen Therapy Protocol Respiratory Care Routine As Needed until discontinued starting 11/15/2024 [email or web address] Comment on above: As Needed until discontinued starting Oxygen therapy [M[employer] Data Set] Initiate Oxygen Therapy Protocol Respiratory Care Routine As Needed until discontinued starting 11/22/2024 [email or web address] Comment on above: As Needed until discontinued starting Oxygen therapy [[employer] Data Set] Initiate Oxygen Therapy Protocol Respiratory Care Routine Critical limb ischemia of both lower extremities (HCC) Eschar of toe Gangrene of toe of both feet (HCC) As Needed until discontinued starting 12/06/2024 [email or web address] Comment on above: As Needed until discontinued starting Oxygen therapy [[facility] Data Set] Initiate Oxygen Therapy Protocol Respiratory Care Routine Critical limb ischemia of both lower extremities (HCC) Eschar of toe Gangrene of toe of both feet (HCC) As Needed until discontinued starting 12/27/2024 [email or web address] Comment on above: As Needed until discontinued starting Pathology study Surgical Patholo gy Lab Routine Acute osteomyelitis of right foot (HCC) Open wound of toe(s) Release Upon Ordering for 1 Occurrences starting 11/11/2024 [email or web address] Comment on above: Release Upon Ordering for 1 Occurrences starting 11/11/2024 End: 12-02-2023 Percutaneous coronary intervention [employer] Comment on above: One Time for 1 Occurrences starting 11/22 until 12/02/2023 Protime-INR Protime-INR Lab STAT As Needed until discontinued starting 05/29/2021 [employer] Phone: Comment on above: As Needed until discontinued starting End: 08-05-2023 PSA screening [employer] Comment on above: 1 Occurrences starting 08/05/2023 until 08/05/2023 PTH, Intact with Ion ized Calcium PTH, Intact with Ionized Calcium Lab Routine Acute on chronic diastolic (congestive) heart failure (HCC) ASHD (arteriosclerotic heart disease) S/P angioplasty with stent Essential hypertension Mixed hyperlipidemia PAD (peripheral artery disease) ([facility]) CHRIS (obstructive sleep apnea) Stage 3a chronic kidney disease ([facility]) Obesity, unspecified class, unspecified obesity type, unspecified whether serious comorbidity present 05/06/2024 12:46 PM EST [email or web address] End: 05-24-2022 Renin [employer] Phone: Comment on above: Once for 1 Occurrences starting 05/24/20 until 05/24/2022 [facility] Immunizations Immunization Date Immunization Notes Care Provider Fa doron 11-12-2022 tetanus toxoid, redu beatriz diphtheria toxoid, and acellular pertussis vaccine, adsorbed Alice Cochran DPM Work Phone: [facility] 07-29-2019 pneumococcal polysaccharide vaccine, 23 valent Alice Cochran DPM Work Phone: [facility] 06-25-2013 pneumococcal conjuga te vaccine, 13 valent Alice Cochran DPM Work Phone: [facility] Payers Date Payer Category Payer Medicare [id number] 15 2024 Medicare 2022 Private Health Insurance [id number] 2022 Unknown [id number] 2022 Medicare [id number] 15 2020 Unknown [id number] 1.2.840.785717.1.13.239.2.7.3.854983.315 1959 Unknown [id number] 2.16.8 40.1.647205.3.579.2.174 1959 Unknown [id number] 2.16.84 0.1.080912.3.579.2.593 1959 Unknown [id number] 2.16.84 0.1.961116.3.579.2.593 1959 Unknown [id number] 2.16.84 0.1.707845.3.579.2.593 1959 Unknown [id number] 2.16.84 0.1.084345.3.579.2.593 - Unknown [id number] 2.16. 840.1.884052.3.579.2.196 1959 Unknown [id number] 2.16. 840.1.801648.3.579.2.175 1959 Unknown [id number] 2.16.8 40.1.633662.3.579.2.1259 1959 Unknown [id number] 2.16.84 0.1.144747.3.579.2.1259 1959 Unknown [id number] 2.16.84 0.1.235283.3.579.2.1259 1959 Unknown [id number] 2.16.84 0.1.307481.3.579.2.1259 1959 Unknown [id number] 2.16.84 0.1.951814.3.579.2.1259 1959 Unknown [id number] 2.16.84 0.1.754607.3.579.2.1259 1959 Unknown [id number] 2.16.84 0.1.950792.3.579.2.1259 1959 Unknown [id number] 2.16.8 40.1.581204.3.579.2.173 1959 Unknown [id number] 2.16.8 40.1.105343.3.579.2.173 1959 Unknown [id number] 2.16.8 40.1.183884.3.579.2.173 1959 Unknown [id number] 2.16.8 40.1.838245.3.579.2.173 1959 Unknown [id number] 2.16.8 40.1.056541.3.579.2.173 1959 Unknown [id number] 2.16.8 40.1.787138.3.579.2.173 1959 Unknown [id number] 2.16.8 40.1.708768.3.579.2.173 - Unknown [id number] 2.16.8 40.1.661360.3.579.2.173 1959 Unknown [id number] 2.16.8 40.1.974396.3.579.2.173 1959 Unknown [id number] 2.16.8 40.1.680389.3.579.2.173 1959 Unknown [id number] 2.16.8 40.1.648809.3.579.2.173 1959 Unknown [id number] 2.16.8 40.1.948836.3.579.2.173 1959 Unknown [id number] 2.16.8 40.1.044977.3.579.2.173 1959 Unknown [id number] 2.16.8 40.1.193181.3.579.2.173 1959 Unknown [id number] 2.16.8 40.1.286346.3.579.2.173 1959 Unknown [id number] 2.16.8 40.1.689361.3.579.2.173 1959 Unknown [id number] 2.16.8 40.1.475928.3.579.2.173 1959 Unknown [id number] 2.16.8 40.1.493155.3.579.2.173 1959 Unknown [id number] 2.16.8 40.1.884979.3.579.2.173 1959 Unknown [id number] 2.16.8 40.1.232096.3.579.2.173 1959 Unknown [id number] 2.16.8 40.1.391679.3.579.2.173 1959 Unknown [id number] 2.16.8 40.1.228397.3.579.2.173 1959 Unknown [id number] 2.16.8 40.1.148684.3.579.2.173 1959 Unknown [id number] 2.16.8 40.1.277743.3.579.2.173 1959 Unknown [id number] 2.16.8 40.1.447472.3.579.2.173 1959 Unknown [id number] 2.16.8 40.1.592575.3.579.2.173 1959 Unknown [id number] 2.16.8 40.1.553467.3.579.2.173 1959 Unknown [id number] 2.16.8 40.1.937238.3.579.2.173 1959 Unknown [id number] 2.16.8 40.1.661470.3.579.2.173 1959 Unknown [id number] 2.16.8 40.1.625913.3.579.2.173 1959 Unknown [id number] 2.16.8 40.1.653153.3.579.2.173 1959 Unknown [id number] 2.16.8 40.1.826311.3.579.2.173 1959 Unknown [id number] 2.16.8 40.1.481011.3.579.2.173 1959 Unknown [id number] 2.16.8 40.1.394259.3.579.2.173 1959 Unknown [id number] 2.16.8 40.1.756201.3.579.2.173 1959 Unknown [id number] 2.16.8 40.1.666403.3.579.2.173 1959 Unknown [id number] 2.16.8 40.1.411543.3.579.2.173 1959 Unknown [id number] 2.16.8 40.1.528569.3.579.2.173 1959 Unknown [id number] 2.16.8 40.1.776636.3.579.2.173 1959 Unknown [id number] 2.16.8 40.1.146276.3.579.2.173 1959 Self-pay [id number] 1959 Unknown [id number] 1.2.840.506822.1.13.239.2.7.3.608007.315 Unknown [id number] 2.16.8 40.1.015139.3.579.2.531 Unknown [id number] 2.16.8 40.1.376036.3.579.2.531 Social History Date Type Detail Facility Start: 07-25-2020 End: 01-02-2022 Tobacco smoking status [facility] Never smoker [employer] Phone: Start: 07-25-2020 End: 01-02-2022 Tobacco use and exposure Never used [employer] Phone: Start: 07-25-2020 End: 12-27-2024 Alcohol intake Lifetime non-drinker (finding) [employer] Phone: Start: 07-25-2020 History SDOH Alcohol Frequency 1 [employer] Phone: Start: 1960 Sex Assigned At Not on file [employer] Phone: Start: 08-30-2021 End: 07-01-2022 Exposure to SARS-CoV-2 (event) Not sure [employer] Start: 1960 Sex Assigned At Male F [facility] Start: 07-25-2020 End: 12-27-2024 Sex Assigned At [employer] Phone: Start: 07-25-2020 End: 12-27-2024 History of Social function [employer] Phone: How often to you hav e a drink containing alcohol? Never [employer] Phone: Average Number of Drinks Not on file [employer] Start: 07-05-2020 End: 07-12-2024 Sex Male (finding) [facility] Medical Equipment Procedure Code Equipment Code Equipment Origin al Text Equipment Identifier Dates [id number] Start: 05-30-2020 USE TO INJECT INSULIN TWICE DAILY DIRECTED [id number] Start: 07-02-2020 Pen Needle, Diab etic (Bd [...] EDT Wound Management Patient Discharge Instructions CALL [phone] for questions regarding care of your wounds. [...] TPP 04/12/2025 2:30 PM [facility] 04/27/2025 1:40 PM Alma Kan MD TIFF CARD [facility] 07/12/2025 1:00 PM [facility] MED MGMT [place] 10/09/2025 1:00 PM Arabella Dyer PA-C [facility] Your wound care supplies were ordered from [facility], unless otherwise stated. If you do not receive them in 3 days call them at . SURVEY: You may be receiving a survey from [employer] regarding your visit today. Please complete the [...] the hospital. 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 ([facility]) Lymphedema Obstructive sleep apnea on CPAP Type 2 diabetes mellitus without complication (HCC) Type 2 diabetes mellitus without complication ([facility]) Past Surgical History: Procedure Laterality Date ANGIOPLASTY 06/03/2021 cardiac PCI CARDIAC CATHETERIZATION 05/29/2021 Dr Mars/[facility] [place]/right radial-Severe three vessel coronary artery disease involving [...] angiography performed by Tigist Correa MD at [facility] Cardiac Cath/IR INVASIVE VASCULAR N/A 03/08/2024 Angiography lower ext bilat performed by Floyd Vee MD at [facility] CARDIAC CATH/IR LAB INVASIVE VASCULAR N/A 03/08/2024 Angioplasty common iliac artery performed by Floyd Vee MD at [facility] CARDIAC CATH/IR LAB LASER OF PROSTATE W/ GREEN LIGHT PVP 07/15/2022 CYSTOSCOPY TRANSURETHRAL RESECTION PROSTATE LASER-PVP GREENLIGHT- Dr. Ferrer LYMPH NODE DISSECTION Right 1967 TOE AMPUTATION Right 11/11/2024 TOE AMPUTATION-big toe right, flap closure of right foot performed by Quincy Penn DPM at [facility] OR TURP N/A 07/15/2022 CYSTOSCOPY TRANSURETHRAL RESECTION PROSTATE LASER-PVP GREENLIGHT performed by Akira Ferrer MD at [facility] OR Allergies Allergen Reactions Azithromycin [...] NEEDLE PAULINA U/F 32G X 4 MM [facility], USE ONE TO INJECT INSULIN FOUR TIMES A DAY 25, Disp: , Rfl: losartan (COZAAR) 25 MG tablet, Take 1 tablet by mouth daily, Disp: , Rfl: pantoprazole (PROTONIX) 40 MG tablet, Take 1 tablet by mouth daily, Disp: , Rfl: Continuous Glucose Sensor (FREESTYLE SARMAD 3 SENSOR) [facility], , Disp: , Rfl: spironolactone (ALDACTONE) 50 [...] 12/27/2024 10:56 AM documented in this encounter [facility] 12-06-2024 Hospital Discharge instructions Rosi Campbell RN - 12/06/2024 12:23 PM EDT Wound Management Patient Discharge Instructions CALL [phone] for questions regarding care of your wounds. [...] Center 12/27/2024 10:30 AM Quincy Penn DPM [facility] WND [place] 03/15/2025 1:30 PM Floyd Vee MD [place] [facility] 04/12/2025 2:30 PM Arabella [facility]yer [facility] 04/27/2025 1:40 PM Alma Kan MD TIF CARD [facility] 07/12/2025 1:00 PM [facility] [place] 10/09/2025 1:00 PM Arabella Dyer PA-C [facility] TPP Your wound care supplies were ordered from [facility], unless otherwise stated. If you do not receive them in 3 days call them at . SURVEY: You may be receiving a survey from [facility] regarding your visit today. Please complete [...] for the hospital. documented in this encounter [facility] 12-06-2024 History of Present illness Narrative [...] or education Yes documented in this encounter [facility] 11-22-2024 Hospital Discharge instructions Rosi Campbell RN - 11/22/2024 11:22 AM EDT Wound Management Patient Discharge Instructions CALL [phone] for questions regarding care of your wounds. [...] 12:00 PM Quincy Penn DPM [facility] WND [place] 03/15/2025 1:30 PM Floyd Vee MD TIF VASC [facility] 04/12/2025 2:30 PM Arabella Dyer PA-C [facility] 04/27/2025 1:40 PM Alma Kan MD TIFF CARD [facility] 07/12/2025 1:00 PM [facility] MED MGMT [place] 10/09/2025 1:00 PM Arabella Dyer PA-C [facility] TPP Your wound care supplies were ordered from [facility], unless otherwise stated. If you do not receive them in 3 days call them at . SURVEY: You may be receiving a survey from [facility] regarding your visit today. Please complete [...] the hospital. documented in this encounter [facility] 11-22-2024 History of Present illness Narrative Diabetic [...] Medical History: Diagnosis Date Cerebrovascular accident (CVA) ([facility]) 2019 CHF (congestive heart failure) ([facility]) Chronic kidney failure, stage 3 (moderate) ([facility]) Chronic pain COVID-19 06/05/2021 Critical limb ischemia of both lower extremities ([facility]) 02/24/2024 Essential hypertension H/O heart artery stent long-term (current) use of insulin ([facility]) Lymphedema Obstructive sleep apnea on CPAP Type 2 diabetes mellitus without complication (HCC) Type 2 diabetes mellitus without complication ([facility]) Past Surgical History: Procedure Laterality Date ANGIOPLASTY 06/03/2021 cardiac PCI CARDIAC CATHETERIZATION 05/29/2021 Dr Mars/[facility]/right radial-Severe three vessel coronary artery disease involving [...] angiography performed by Tigist Correa MD at [facility] Cardiac Cath/IR INVASIVE VASCULAR N/A 03/08/2024 Angiography lower ext bilat performed by Floyd Vee MD at [facility] CARDIAC CATH/IR LAB INVASIVE VASCULAR N/A 03/08/2024 Angioplasty common iliac artery performed by Floyd Vee MD at [facility] CARDIAC CATH/IR LAB LASER OF PROSTATE W/ GREEN LIGHT PVP 07/15/2022 CYSTOSCOPY TRANSURETHRAL RESECTION PROSTATE LASER-PVP GREENLIGHT- Dr. Ferrer LYMPH NODE DISSECTION Right 1967 TOE AMPUTATION Right 11/11/2024 TOE AMPUTATION-big toe right, flap closure of right foot performed by Quincy Penn DPM at [facility] OR TURP N/A 07/15/2022 CYSTOSCOPY TRANSURETHRAL RESECTION PROSTATE LASER-PVP GREENLIGHT performed by Akira Ferrer MD at [facility] OR ROS: neg. Constitutional +BM [...] 11:27 AM documented in this encounter [facility] 11-15-2024 Hospital Discharge instructions Rosi Campbell RN - 11/15/2024 9:05 AM EDT Wound Management Patient Discharge Instructions CALL [phone] for questions regarding care of your wounds. [...] Time Provider Department Center 11/16/2024 1:00 PM [facility] [place] 11/22/2024 11:00 AM Quincy Penn DPM [facility] WND [place] 03/15/2025 1:30 PM [facility] Vee MD [facility] 04/12/2025 2:30 PM Arabella Dyer [facility] 04/27/2025 1:40 PM Alma Kan MD [facility] C[facility] 10/09/2025 1:00 PM Arabella Dyer PA-C [facility] Your wound care supplies were ordered from [facility], unless otherwise stated. If you do not receive them in 3 days call them at . SURVEY: You may be receiving a survey from [employer] regarding your visit today. Please complete the [...] the hospital. documented in this encounter [facility] 11-15-2024 History of Present illness Narrative POV #1 POD # 4 MRR: hallux amputation & advancement flap N: constipated ROS: +appetite / -BM / +void NEG. 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 ([facility]) Lymphedema Obstructive sleep apnea on CPAP Type 2 diabetes mellitus without complication ([facility]) Type 2 diabetes mellitus without complication ([facility]) Past Surgical History: Procedure Laterality Date ANGIOPLASTY 06/03/2021 cardiac PCI CARDIAC CATHETERIZATION 05/29/2021 Dr Mars/[facility] [place]/right radial-Severe three vessel coronary artery disease involving [...] angiography performed by Tigist Correa MD at [facility] Cardiac Cath/IR INVASIVE VASCULAR N/A 03/08/2024 Angiography lower ext bilat performed by Floyd Vee MD at [facility] CARDIAC CATH/IR LAB INVASIVE VASCULAR N/A 03/08/2024 Angioplasty common iliac artery performed by Floyd Vee MD at [facility] CARDIAC CATH/IR LAB LASER OF PROSTATE W/ GREEN LIGHT PVP 07/15/2022 CYSTOSCOPY TRANSURETHRAL RESECTION PROSTATE LASER-PVP GREENLIGHT- Dr. Ferrer LYMPH NODE DISSECTION Right 1967 TURP N/A 07/15/2022 CYSTOSCOPY TRANSURETHRAL RESECTION PROSTATE LASER-PVP GREENLIGHT performed by Akira Ferrer MD at [facility] OR PE: VSS, Afebrile, NAD, [...] 9:20 AM documented in this encounter [facility] 11-11-2024 History of Present illness Narrative Discharge [...] with patient. documented in this encounter [facility] 11-11-2024 Hospital Discharge instructions Yumiko Toussaint RN [...] op period. documented in this encounter [facility] 11-09-2024 History of Present illness Narrative Images [...] EDT Wound Management Patient Discharge Instructions CALL [phone] for questions regarding care of your wounds. 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 Return to clinic Thursday11/22/24 at 11:00AM Next appointment: Future Appointments Date Time Provider Department Center 11/16/2024 1:00 PM [facility] MED MGMT [place] 11/22/2024 11:00 AM Quincy Penn DPM [facility] WND [place] 03/15/2025 1:30 PM Floyd Vee MD [facility] [facility] 04/12/2025 2:30 PM Arabella Dyer PA-C [facility] 04/27/2025 1:40 PM Alma Kan MD [facility] 10/09/2025 1:00 PM Arabella Dyer PA-C [facility] Your wound care supplies were ordered from [facility], unless otherwise stated. If you do not receive them in 3 days call them at . SURVEY: You may be receiving a survey from [employer] regarding your visit today. Please complete the [...] for the hospital. documented in this encounter [facility] 11-01-2024 History of Present illness Narrative [...] or education Yes documented in this encounter [facility] 10-04-2024 Hospital Discharge instructions Rosi Campbell RN - 10/04/2024 11:30 AM EDT Wound Management Patient Discharge Instructions CALL [phone] for questions regarding care of your wounds. [...] prior to next appointment Call to schedule [phone] Return to clinic Thursday11/01/24 at 11:30pm SURVEY: You [facility] today. Please [...] for the hospital. documented in this encounter [facility] 10-04-2024 History of Present illness Narrative Diabetic Quality Measure Benchmarks: FSBS: RESULT 240 0800 Hemoglobin A1c [id number] and is < 8%= YES Lab Results Component Value Date LABA1C 7.7 (H) 02/24/2024 LDL is <100 Yes Blood Pressure is under < 140/90 Yes Tobacco Non use Yes Aspirin Use/blood thinner Yes Information sent to PCP Yes Instructions given to Patient regarding follow up and or education Yes documented in this encounter [facility] 09-06-2024 Hospital Discharge instructions Rosi Campbell RN - 09/06/2024 11:54 AM EDT Wound Management Patient Discharge Instructions CALL [phone] for questions regarding care of your wounds. [...] Center 09/14/2024 12:45 PM Floyd Vee MD [facility] 10/04/2024 11:00 AM Quincy Penn DPM [facility] WND [place] 10/05/2024 1:00 PM Arabella Dyer PA-C TIFF UROLOGY [facility] 10/12/2024 11:00 AM [facility] HEARTFAILURE CLINIC [facility] MED MGMT [place] 10/20/2024 2:00 PM Lev Duarte, CLINICAL SOCIOLOGIST - COURT RECORDER TIFF CARD [facility] SURVEY: You may be receiving a survey [...] for the hospital. documented in this encounter [facility] 09-06-2024 History of Present illness Narrative [...] or education Yes documented in this encounter [facility] 08-16-2024 Hospital Discharge instructions Rosi Campbell RN - 08/16/2024 12:04 PM EDT Wound Management Patient Discharge Instructions CALL [phone] for questions regarding care of your wounds. [...] 10:45 AM Arabella Dyer PA-C TIFF UROLOGY [facility] 09/06/2024 11:30 AM Quincy Penn, DPM M[facility] WND [place] 09/14/2024 12:45 PM Floyd Vee MD TIFF VASC [facility] 09/19/2024 2:00 PM Lev Duarte, CLINICAL SOCIOLOGIST - COURT RECORDER [facility] 10/12/2024 11:00 AM [facility] HEARTFAILURE CLINIC [facility] [place] SURVEY: You may be receiving a survey from [facility] regarding your visit today. Please complete [...] the hospital. documented in this encounter [facility] 08-16-2024 History of Present illness Narrative Diabetic [...] Needs- BEE- 2219 kcal Total Calorie Needs- 3474-9756 (18-23 kcal/kg) Total Protein Needs- 97-113 (1.2-1.4 g/kg) Patient Diagnosis Date Cerebrovascular accident (CVA) ([facility]) 2019 CHF (congestive heart failure) ([facility]) Chronic kidney failure, stage 3 (moderate) ([facility]) Chronic pain COVID-19 06/05/2021 Critical limb ischemia of both lower extremities ([facility]) 02/24/2024 Essential hypertension H/O heart artery stent long-term (current) use of insulin ([facility]) Lymphedema Obstructive sleep apnea on CPAP Type 2 diabetes mellitus without complication ([facility]) Type 2 diabetes mellitus without complication ([facility]) Patient FreeStyle Sarmad 3 Sensor, Insulin Pen [...] respectively, for which he was transferred to [facility]). Nutrition Therapy Recommendations- Recommend obtain current vitamin D status and supplement as indicated. Follow-up- quarterly Electronically signed by Dann Velázquez RDN, LD 08/16/2024, 12:46 PM PQRS Measure: #1(Diabetes: Hemoglobin A1C Poor Control) - no PQRS Measure #130 (Documentation of Current Medications in Medical Record) - yes documented in this encounter [facility] 07-29-2024 Note Admission Informatio n Patient: Piotr Kerr : 1960 Date of Admission: 07/23/2024 09:47:21 Date of Discharge: Code Status: Full Resuscitation PCP: Jorge Pritchett DO Consult: Bita GREENBERG, Werner Rodriguez; Autumn Dukes DPM; Harrison Beltran DO Follow Up with Provider With When Contact Information Akira Ferrer 08/03/2024 09:45 AM EDT [address], [address] [place] [address] Business (1) Additional Instructions: Appointment Scheduled Harrison Beltran 07/29/2024 02:00 PM EST [address] [place], [place] Additional Instructions: Appointment Scheduled Jorge Pritchett DO Within 1 week [address] [place] [address]- Additional Instructions: Jorge Pritchett In 0 days [address] [facility] [address]- Business (1) Additional Instructions: 63-year-old male with past medical history type 2 diabetes, CVA, CAD status post stent, CHRIS, CHF unspecified, CKD who presented to outside facility for feeling unwell was found to be in acute renal failure and was transferred to [facility] Assessment #Dizziness/tinnitus, improving # Constipation likely [...] coordination is 35minutes. Medications New Medications Medicine [facility] [address], [place] [id number], [phone] calcitriol (calcitriol 0.5 mcg oral capsule) 0.5 Microgram Oral (given by mouth) every day for 30 Days. Refills: 0. Last Dose: meclizine (meclizine 25 mg oral tablet) 12.5 Milligram Oral (given by mouth) 2 times a day for 14 Days. Refills: 0. Last Dose: Medications That Were Updated - Follow Current Instructions [facility] [address], [place] [id number], [phone] Current: furosemide (Lasix 40 mg oral tablet) [...] Tabs Sublingual (dissolve (more content not included)... [facility] 07-27-2024 Note Chief Complaint Chronic dizziness and tinnitus Reason for Consultation Evaluate for recurrent dizziness in the setting of chronic renal disease History of Present Illness This is a 63-year-old gentleman with a history of diabetes with associated neuropathy, chronic renal insufficiency followed by Dr. Beltran transferred to [facility] on July 23 because of worsening renal presented to the [facility] in [place] and was weak that labs included a BUN of 127 and a creatinine of 4.8. Nephrology was contacted and he was sent down to [facility] has been under the care of his debt recovery officer and hospitalist. Neurological opinion regarding his dizziness was requested on July 23 BUN 120 creatinine 4.11. Neurological opinion regarding his dizziness was requested. While living in [place], he did have a right CVA, resulting [...] Following his stroke he did move to [facility] Review of Systems Constitutional: [No fevers, chills, [...] Dose: 07/27/24 15:00:00 EST, Dispense From Location: [facility], 07/27/24 15:00:00 EST Problem List/Past Medical [...] PRN heparin, 5000 units= 1 mL, Subcutaneous, g9tu-Bojvlbtk Times hydrocodone-acetaminophen 5 mg-325 mg oral tablet, [...] 0.9% injectable so (more content not included)... [facility] 07-25-2024 Note Reason for Consultat ion right foot ulcer, diabetic History of Present Illness 63-year-old male with type 2 diabetes and neuropathy seen at [facility] for diabetic foot ulcer on the right [...] Dose: 07/26/24 9:00:00 EST, Dispense From Location: [facility], 07/25/24 12:23:00 EST Surgical Shoe/Cast Shoe 1) [...] Ongoing No qualifyin (more content not included)... [facility] 07-23-2024 Note Reason for Consultat ion severe NEO History of Present Illness 63-year-old male who is well known to the under-signed, with past medical history of advanced renal disease stage IV, type 2 diabetes, CVA, CAD status post stent, CHRIS, CHF unspecified who presented to [facility] for feeling unwell was found to be in acute renal failure, with much worse advanced renal disease. 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 Most recent labs showed no leukocytosis [...] Dose: 07/24/24 9:00:00 EST, Dispense From Location: [facility], 07/23/24 23:40:00 EST Sodium Chloride 0.9% intravenous [...] PRN heparin, 5000 units= 1 mL, Subcutaneous, m3lc-Jomwbmsc Times hydrocodone-acetaminophen 5 mg-325 mg oral tablet, 1 tabs, Oral, q4hr, PRN insulin aspart, see comments, Subcutaneous, ACHS insulin glargine, 50 units, Subcutaneous, Daily naloxone, 0.4 mg= 1 mL, IV Push, q2min, PRN Normal Saline Flush 0.9% injectable solution, 10 mL, IV Push, As Indicated, PRN Normal Saline Flush 0.9% injectable solution, 10 mL, IV Push, BID nys (more content not included)... [facility] 07-23-2024 Note Assessment/Plan 63-year-old male with past medical history type 2 diabetes, CVA, CAD status post stent, CHRIS, CHF unspecified, CKD who presented to outside facility for feeling unwell was found to be in acute renal failure and was transferred to [facility] #Acute renal failure #Uremia #Lactic acidosis [...] acute renal failure and was transferred to [facility]. Patient follows with Dr. Thomas. Most [...] As Indicated, PRN heparin, 5000 units, Subcutaneous, i2qi-Mbtjzgka Times hydrocodone-acetaminophen 5 mg-325 mg oral tablet, [...] by Yoel Du DO 07/23/24 11:07 EST [facility] 07-12-2024 Evaluation note Diagnosis Onset Date [...] with hyperglycemia acute September 21 025 2:38pm [facility] Work Phone: 1(234) 894-642602-18-2025 Hospital Discharge instructions* Discharge Instructions* Rosi Campbell RN - 07/12/2024 11:04 AM EST Wound Management Patient Discharge Instructions CALL [phone] for questions regarding care of your wounds. [...] AM [facility] HEARTFAILURE CLINIC M[facility] MED MGMT [place] 08/02/2024 11:30 AM Quincy Penn DPM [facility] WND [place] 08/16/2024 2:00 PM Alma Kan MD TIFF CARD [facility] 09/14/2024 12:45 PM Floyd Vee MD [facility]: You may be receiving a survey from [employer] [facility] regarding your visit today. Please complete [...] fee for the hospital. [facility] History of Present illness Narrative* Rosi [...] and or education Yes [facility] History of Present illness Narrative* Alice [...] understanding. Alice Cochran DPM documented in this [facility]01-02-2025 Instructions* Patient Instructions* Alice Cochran DPM - 05/26/2024 3:15 PM EST As noted documented in this [facility]12-19-2024 Evaluation note* Diagnosis Onset Date Resolution Status Admit Date Cardiomyopathy, ischemic acute May 12, 2024 11:34am Cerebral atherosclerosis acute May 12, 2024 11:34am Chronic heart failure with preserved ejection fraction (HFpEF) acute May 12 11:34am Chronic venous insufficiency of lower extremity acute May 12 11:34am Diabetes mellitus with perip heral angiopathy acute May 12 11:34am Hypercholesterolemia acute [facility] 2023 11:34am Primary hypertension acute [facility] 2023 11:34am Stage 3b chronic kidney disease acut e May 12, 2024 11:34am Type 2 diabetes mellitus wit h hyperglycemia acute May 12 11:34am [facility] Work Phone: 1(644) 857-802910-30-2024 History of Present illness Narrative* Alice Cochran [...] understanding. Alice Cochran DPM documented in this [facility]10-30-2024 Instructions* Patient Instructions* Alice Cochran DPM - 03/23/2024 1:45 PM EDT As noted documented in this [facility]10-06-2024 Hospital Discharge instructions* Discharge Instructions* Gabby Orlando MD - 02/28/2024 7:42 AM EDT Please pickup driver the antibiotic at take as prescribed. For pain: Tylenol can be taken every 6 hours. Maximum dose of tylenol in a 24 hour period is 4000mg. You can also take your previously prescribed codeine as needed every 6-8 hours as needed for break through pain not controlled by the tylenol. Please call your dry dip worker on Thursday to schedule follow up appointment for re- wrapping of the leg. Return to ED for re-evaluation if you develop fevers, increasing redness, increasing swelling, numbness, tingling, weakness or pain. [facility] History of Present illness Narrative* Froy Reagan RN - 02/27/2024 4:15 PM EDT Discharge education and instructions reviewed with the patient and his spouse. * Froy Reagan RN - 02/27/2024 3:47 PM EDT The patients preferred pharmacy is not open on the weekends, therefore antibiotic was called into [facility] in [place] per patient request. * Jorge Crum - [...] Assessment: (P) Calm Intervention: (P) Discussed belief system/orthodox practices/avis, Discussed illness injury and it s [...] Procedure Component Value Units Date/Time Culture, Urine [[id number]] Collected: 02/24/24 1252 Order Status: Completed Specimen: [...] home CPAP machine Nutrition status: Obesity, non-morbid Invasive Cardiologist consult appreciated Hospital Prophylaxis: DVT: Lovenox Stress [...] 02/27/2024 8:17 AM EDT Physical Therapy Facility/Department: [facility] Daily Treatment Note NAME: [...] Minutes Dipti Adams PTA * Ruth Alcaraz [facility] - 02/26/2024 2:01 PM EDT Images from the original note were not included. [facility] Department of Pharmacy Pharmacy Renal Adjustment Note [...] for CrCl <50mL/min Thank you, Ruth Alcaraz [facility],02/26/2024,2:00 PM * Dipti Adams PTA - 02/26/2024 12:24 PM EDT Physical Therapy Facility/Department: [facility] Daily Treatment Note NAME: [...] Assessment: (P) Calm Intervention: (P) Discussed belief system/orthodox practices/avis, Discussed illness injury and it s impact Outcome: (P) Engaged in conversation, Encouraged * Shalini Del Valle PTA - 02/26/2024 8:35 AM EDT Physical Therapy Facility/Department: [facility] Daily Treatment Note NAME: [...] Procedure Component Value Units Date/Time Culture, Urine [[id number]] Collected: 02/24/24 1252 Order Status: Completed Specimen: [...] home CPAP machine Nutrition status: Obesity, non-morbid Invasive Cardiologist consult appreciated Hospital Prophylaxis: DVT: Lovenox Stress [...] and assessment were completed at this time. Log Cooker walked patient through the medications that would [...] Assessment: (P) Calm Intervention: (P) Discussed belief system/orthodox practices/avis, Discussed illness injury and it s impact Outcome: (P) Encouraged, Engaged in conversation * Yumiko Montes PTA - 02/25/2024 10:21 AM EDT Physical Therapy Facility/Department: [facility] Daily Treatment Note NAME: [...] loss Fluid Accumulation: Moderate to Severe Extremities Pbx Repairer Strength: Not Performed Nutrition Assessment: Altered nutrition [...] Na Anthropometric Measures: Height: 182.9 cm (6') Menan Body Weight (IBW): 178 lbs (81 kg) [...] Used for Energy Requirements: Current Energy (kcal/day): 6276-8594 (15-18) Weight Used for Protein Requirements: Menan Protein (g/day): 97-113 (1.2-1.4) Method Used for [...] this time Dann Velázquez RD, LD Contact: [phone] * Fred Villegas MD - 02/25/2024 7:55 [...] Procedure Component Value Units Date/Time Culture, Urine [[id number]] Collected: 02/24/24 1252 Order Status: Sent Specimen: [...] in home CPAP Nutrition status: Obesity, non-morbid Invasive Cardiologist consult appreciated Hospital Prophylaxis: DVT: Lovenox Stress [...] Albert RN - 02/24/2024 11:45 PM EDT Log Cooker rewraped patient's legs and put the bed warehouse and receiving supervisor on the bed. Patient also requested to use the hospital cpap machine as he does not have his from home. New order received. Patient is aware respiratory will be in to set it up. * Paradise Albert RN - 02/24/2024 7:15 PM EDT Vitals and assessment were completed at this time. Log Cooker walked patient through the medications that would be administered tonight and encouraged patient to ask questions about the medications and therapies. Log Cooker redressed patient's BLL kirit wraps. Call light and bedside table remain within reach. Patient denies needs at this time. Care ongoing. * Yumiko Sarabia - 02/24/2024 5:37 PM EDT Log Cooker called to bring patients home medication * [...] or converted to UFH per the approved [facility] protocol and table as identified below. Piotr [...] room 319 from Er. Report received from DELICATESSEN CLERK. VS and assessment completed. Patient denies pain. Plan of care gone over with patient and spouse. Compression kirit wraps place on bilateral legs. Pictures taken of BLE and placed in charts. documented in this [facility] History of Present illness Narrative* Alice [...] DPM documented in this [facility]Mer[facility] [id number] Instructions* Patient Instructions* Alice Cochran DPM - 02/17/2024 9:45 AM EDT Continue wound care measures documented in this [facility]Mer[facility] [id number] History of Present illness Narrative* Aliec Cochran DPM - 02/05/2024 10:00 AM EDT [...] understanding. Alice Cochran DPM documented in this [facility]09-13-2024 Instructions* Patient Instructions* Alice Cochran DPM - 02/05/2024 10:00 AM EDT As noted documented in this [facility]07-29-2024 History of Present illness Narrative* Nesha Campoverde RN - 12/21/2023 3:58 PM EDT All discharge instructions reviewed, questions answered, paper signed and given copy. Patient discharged per wheelchair with and belongings. * Nesha Campoverde RN - 12/21/2023 1:05 PM EDT Care received from Juan C Mayen rn and Bettina Madrigal rn Patient [facility]. Assessment obtained. Right radial site with vascband intact. Nohematoma noted. Restrictions reviewed with patient and . Patient without complaints. and son and bedside. * Nesha Campoverde RN - 12/21/2023 8:21 AM EDT Patient admitted, consent signed and questions answered. Patient ready for procedure. Call light toreach with side rails up 2 of 2. Right wrist and B/L groin clipped with specifications writer and Juan C Mayen rn present. and son at bedside with patient. History and physical to be updated. * Nesha Campoverde RN - 12/18/2023 10:58 AM EDT Attempted pre-procedure call. VM message left for patient to return call. [phone] documented in this encounterBON [facility] Hospital Discharge instructions* Discharge Instructions* Nesha [...] taking more than one drug. This includes isnc-ohz-ksxycqz medicine and herb or dietary supplements. Plan [...] unless otherwise instructed documented in this encounterBON [facility] History of Present illness Narrative* Yumiko Montes PTA - 11/06/2023 12:15 PM EDT [facility] Lymphedema Treatment Date: 11/06/2023 Patient: Piotr Kerr : 1960 CSN #: [id number] Referring Physician: Referring Provider (secondary): Dr. Lucius MD Diagnosis: Lymphedema, I89.0; CHF I50.32; Treatment Diagnosis: B LE lymphedema PT Insurance Information: [employer] Total # of Visits Approved: 12 Total [...] functional strengthening for improved mobility and endurance.-MET Hand Sewer Shoes Goals Time Frame for Longterm Goals : 6 weeks Hand Sewer Shoes Goal 1: Patient will be safe and independent with his lymphedema management. Longterm Goal 2: Patient will demonstrate a 1-2cm decrease in B LE girth measurements in order to improve ambulation tolerance.-progressing Hand Sewer Shoes Goal 3: Patient will be fitted for an at home pump in order to be independent with his lymphedema management.-MET Longterm Goal 4: Patient to have improved B LE strength >/=4/5 grossly all major joints and planes for improved functional strength. Minutes Tracking: Time In: 1215 Time Out: 1315 Minutes: 60 Yumiko Montes PTA, Date: 11/06/2023 documented in this encounterBON [facility]06-[facility] History of Present illness Narrative* Kim [...] morning of surgery. Awaiting to here from manager people when to hold Plavix and ASA. documented in this encounterBON [facility]05-30-[facility] History of Present illness Narrative* Yumiko Montes PTA - 10/22/2023 11:00 AM EDT [facility] Lymphedema Treatment Date: 10/22/2023 Patient: Piotr Kerr : 1960 CSN #: [id number] Referring Physician: Referring Provider (secondary): Dr. Lucius MD Diagnosis: Lymphedema, I89.0; CHF I50.32; Treatment Diagnosis: B LE lymphedema PT Insurance Information: [employer] Total # of Visits Approved: 12 Total [...] functional strengthening for improved mobility and endurance.-MET Longterm Goals Time Frame for Hand Sewer Shoes Goals : 6 weeks Longterm Goal 1: Patient will be safe and independent with his lymphedema management. Longterm Goal 2: Patient will demonstrate a 1-2cm decrease in B LE girth measurements in order to improve ambulation tolerance. Hand Sewer Shoes Goal 3: Patient will be fitted for an at home pump in order to be independent with his lymphedema management. Longterm Goal 4: Patient to have improved B LE strength >/=4/5 grossly all major joints and planes for improved functional strength. Minutes Tracking: Time In: 1116 Time Out: 1203 Minutes: 47 Yumiko Montes PTA, Date: 10/22/2023 documented in this encounterBON [facility]12-[facility] Evaluation note* Encounter Date Diagnosis Assessment [...] Uncontrolled but will be better/safer addressed by Deputy Chief Executive Apr, Pure hypercholestero lemia (ICD-10 - E78.00) Instructed on diet and exercise with continued statin therapy.Discussed the beneficial effects of lowering cholesterol in reducing the risk for cerebrovascular and cardiovascular disease. Apr, Obstructive sleep ap ellyn (ICD-10 - G47.33) This patient is aware of the benefits associated with CHRIS: With continued use, the patient reduces the risk for WI, CVA, HTN, cardiac dysrhythmias and sudden cardiac [...] CHRIS treatment. Apr, Hyperparathyroidism (ICD-10 - E21.3) Deputy Chief Executive evaluating this for patient - elevated Ca and PTH - likely will require surgical treatment. - CKD complicates evaluation Apr, Hx of cerebral infar ction (ICD-10 - Z86.73) COntinue secondary prevention measures Instructed on stroke symptoms and to report to ER for any suspicious symptoms Apr, long-term (current) use of insulin (ICD-10 - Z79.4) Recommend CGM Apr, Other The patient is instructed on adequate control of hypertension and diabetes, if appropriate. They are also educated on the associated risks of NSAIDs and PPI use with kidney disease. They were instructed on adequate fluid balance and to avoid dehydration. [facility] Other 12-14-2023 Evaluation note* Encounter Date Diagnosis Assessment Notes Treatment Notes Treatment Clinical Notes Apr, Cardiomyopathy, ischemic (ICD-10 - I25.5) NM stress: inferolateral ischemia 06/2022 Echo: LVEF 55%, LVH, diastolic dysfunction Apr, Chronic diastolic heart failure (ICD-10 - I50.32) [facility] Other 12-03-2023 Evaluation note* Encounter Date Diagnosis Assessment Notes Treatment Notes Treatment Clinical Notes Apr, Type 2 diabetes mellitus with diabetic peripheral angiopathy without gangrene (ICD-10 - E11.51) [facility] Other 11-06-2023 Evaluation note* Encounter Date Diagnosis Assessment Notes Treatment Notes Treatment Clinical Notes Mar, Stage 3b chronic kidney disease (ICD-10 - N18.32) [facility] Other 09-20-2023 Evaluation note* Encounter Date Diagnosis [...] soapy water and rinse Scheduled to see Silk Folder Jan, Stage 3b chronic kid kana disease [...] DM and HTN Recommend regular appt w/ Silk Folder Jan, Essential hypertensi on (ICD-10 - I10) This patient is instructed to consume a healthy, low-fat, low-salt diet. They are also encouraged to continue exercise to achieve/maintain a normal BMI. Uncontrolled but medications adjusted by Deputy Chief Executive - seeing again in 2 days - [...] use, the patient reduces the risk for WI, CVA, HTN, cardiac dysrhythmias and sudden cardiac [...] Hyperparathyroidism (ICD-10 - E21.3) Evaluation underway w/ Deputy Chief Executive NM parathyroid scan and 24 hour urine for Ca pending Jan, Hx of cerebral infar ction (ICD-10 - Z86.73) No acute neurologic deficits. 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 (ICD-10 - Z79.4) Jan, Subconjunctival hemorrhage of right eye (ICD-10 - H11.31) [facility] Other 08-15-2023 Evaluation note* Encounter Date Diagnosis Assessment Notes Treatment Notes Treatment Clinical Notes Dec, Essential hypertension (ICD-10 - I10) [facility] Other 07-27-2023 History of Present illness Narrative* Rashel Cárdenas, PT - 12/18/2022 1:45 PM EDT [facility] Daily Note Patient: Piotr Kerr : 1960 CSN #: [id number] Referring Physician: Jorge Pritchett DO Date: 12/18/2022 Diagnosis: M54.50 low back pain, R29.898 weakness Treatment Diagnosis: weakness Onset Date: 08/13/22 PT Insurance Information: [employer] Total # of Visits Approved: 30 Per [...] order to improve functional strength---met 20 seconds Hand [employer]er Shoes Goals Time Frame for Hand Sewer Shoes Goals : 6 weeks Longterm Goal 1: Pt will be safe and independent with his HEP Longterm Goal 2: Pt will increase L LE strength to >/=4-/5 and R LE strength to 4/5 in order toincrease ambulation tolerance-met (R LE: 4 to 4+/5; L LE: 4/5 grossly except ankle DF: 4-/5) Longterm Goal 3: Pt will be able to ambulate for 10 minutes with LRAD and no LOB with minimal fatigue in order to increase community ambulation-progressing (~5.5min max before fatigue/SOB requiring seated rest break) Longterm Goal 4: Pt will increase tinetti score to >/=20/28 in order to reduce fall risk Minutes Tracking: Time In: 1345 Time Out: 1444 Minutes: 59 Timed Code Treatment Minutes: 47 Minutes Rashel Cárdenas PT, DPT Date: 12/18/2022 documented in this encounterBON [facility] History of Present illness Narrative* Rashel Cárdenas PT - 12/11/2022 12:30 PM EDT [facility] Daily Note Patient: Piotr Kerr : 1960 CSN #: [id number] Referring Physician: Jorge Pritchett DO Date: 12/11/2022 Diagnosis: M54.50 low back pain, R29.898 weakness Treatment Diagnosis: weakness Onset Date: 08/13/22 PT Insurance Information: [employer] Total # of Visits Approved: 30 Per [...] order to improve functional strength---met 20 seconds Hand Sewer Shoes Goals Time Frame for Longterm Goals : 6 weeks Hand Sewer Shoes Goal 1: Pt will be safe and independent with his HEP Hand [employer] Shoes Goal 2: Pt will increase L LE strength to >/=4-/5 and R LE strength to 4/5 in order toincrease ambulation tolerance-met (R LE: 4 to 4+/5; L LE: 4/5 grossly except ankle DF: 4-/5) Hand [employer]er Shoes Goal 3: Pt will be able to ambulate for 10 minutes with LRAD and no LOB with minimal fatigue in order to increase community ambulation-progressing (~5.5min max before fatigue/SOB requiring seated rest break) Longterm Goal 4: Pt will increase tinetti score to >/=20/28 in order to reduce fall risk Minutes Tracking: Time In: 1230 Time Out: 1329 Minutes: 59 Timed Code Treatment Minutes: 44 Minutes Rashel Cárdenas PT, DPT Date: 12/11/2022 documented in this encounterBON [facility] History of Present illness Narrative* Shirin Bajwa, INSURANCE LICENSING SUPERVISOR - 12/03/2022 2:30 PM EDT [facility] Daily Note Patient: Piotr Kerr : 1960 CSN #: [id number] Referring Physician: Jorge Pritchett DO Date: 12/03/2022 Treatment Diagnosis: weakness Onset Date: 08/13/22 PT Insurance Information: [employer] Total # of Visits Approved: 30 Per [...] order to improve functional strength---met 20 seconds Hand Sewer Shoes Goals Time Frame for Hand Sewer Shoes Goals : 6 weeks Hand Sewer Shoes Goal 1: Pt will be safe and independent with his HEP Hand [employer] Shoes Goal 2: Pt will increase L LE strength to >/=4-/5 and R LE strength to 4/5 in order toincrease ambulation tolerance-met (R LE: 4 to 4+/5; L LE: 4/5 grossly except ankle DF: 4-/5) Hand [employer]er Shoes Goal 3: Pt will be able to ambulate for 10 minutes with LRAD and no LOB with minimal fatigue in order to increase community ambulation-progressing (~5.5min max before fatigue/SOB requiring seated rest break) Longterm Goal 4: Pt will increase tinetti score to >/=20/28 in order to reduce fall risk Minutes Tracking: Time In: 1430 Time Out: 1528 Minutes: 58 Timed Code Treatment Minutes: 41 Minutes Shirin Bajwa, INSURANCE LICENSING SUPERVISOR Date: 12/03/2022 documented in this encounterBON [facility] History of Present illness Narrative* Rashel Cárdenas, PT - 12/01/2022 2:30 PM EDT [facility] Daily Note Patient: Piotr Kerr : 1960 CSN #: [id number] Referring Physician: Jorge Pritchett DO Date: 12/01/2022 Diagnosis: M54.50 low back pain, R29.898 weakness Treatment Diagnosis: weakness Onset Date: 08/13/22 PT Insurance Information: [employer] Total # of Visits Approved: 30 Per [...] order to improve functional strength---met 20 seconds Hand Sewer Shoes Goals Time Frame for Longterm Goals : 6 weeks Longterm Goal 1: Pt will be safe and independent with his HEP Hand Sewer Shoes Goal 2: Pt will increase L LE strength to >/=4-/5 and R LE strength to 4/5 in order toincrease ambulation tolerance-met (R LE: 4 to 4+/5; L LE: 4/5 grossly except ankle DF: 4-/5) Longterm Goal 3: Pt will be able to ambulate for 10 minutes with LRAD and no LOB with minimal fatigue in order to increase community ambulation-progressing (~5.5min max before fatigue/SOB requiring seated rest break) Hand [employer]er Shoes Goal 4: Pt will increase tinetti score to >/=20/28 in order to reduce fall risk Minutes Tracking: Time In: 1429 Time Out: 1524 Minutes: 55 Timed Code Treatment Minutes: 45 Minutes Rashel Cárdenas PT, DPT Date: 12/01/2022 documented in this encounterBON [facility] Evaluation note* Encounter Date Diagnosis Assessment [...] use, the patient reduces the risk for WI, CVA, HTN, cardiac dysrhythmias and sudden cardiac [...] of u rine (ICD-10 - R33.8) Oct, 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 (ICD-10 - Z79.4) [facility] Other 06-16-2023 History of Present illness Narrative* Rashel Cárdenas, PT - 11/07/2022 1:00 PM EDT [facility] Daily Note Patient: Piotr Kerr : 1960 CSN #: [id number] Referring Physician: Jorge Pritchett DO Date: 11/07/2022 Diagnosis: M54.50 low back pain, R29.898 weakness Treatment Diagnosis: weakness Onset Date: 08/13/22 PT Insurance Information: [employer] Total # of Visits Approved: 30 Per [...] order to improve functional strength---met 20 seconds Hand Sewer Shoes Goals Time Frame for Hand Sewer Shoes Goals : 6 weeks Longterm Goal 1: Pt will be safe and independent with his HEP Hand Sewer Shoes Goal 2: Pt will increase L LE strength to >/=4-/5 and R LE strength to 4/5 in order toincrease ambulation tolerance-met (R LE: 4 to 4+/5; L LE: 4/5 grossly except ankle DF: 4-/5) Longterm Goal 3: Pt will be able to ambulate for 10 minutes with LRAD and no LOB with minimal fatigue in order to increase community ambulation-progressing (~5.5min max before fatigue/SOB requiring seated rest break) Longterm Goal 4: Pt will increase tinetti score to >/=20/28 in order to reduce fall risk Minutes Tracking: Time In: 1258 Time Out: 1345 Minutes: 47 Timed Code Treatment Minutes: 46 Minutes Rashel Cárdenas PT, DPT Date: 11/07/2022 documented in this encounterBON [facility] History of Present illness Narrative* Shirin Bajwa, ALEXANDRA - 10/27/2022 1:00 PM EDT [facility] Daily Note Patient: Piotr Kerr : 1960 CSN #: [id number] Referring Physician: Jorge Pritchett DO Date: 10/27/2022 Treatment Diagnosis: weakness Onset Date: 08/13/22 PT Insurance Information: [employer] Total # of Visits Approved: 24 Per [...] He states he's had f/u appts with manager people and urologist in the meantime. He reports [...] 6: Sit to stand with eccentric lowering 3o35--[id number] today with BUE support --difficulty witheccentric lower [...] order to improve functional strength---met 20 seconds Hand Sewer Shoes Goals Time Frame for Hand Sewer Shoes Goals : 6 weeks Hand Sewer Shoes Goal 1: Pt will be safe and independent with his HEP Hand [employer]er Shoes Goal 2: Pt will increase L LE strength to >/=4-/5 and R LE strength to 4/5 in order toincrease ambulation tolerance-met (R LE: 4 to 4+/5; L LE: 4/5 grossly except ankle DF: 4-/5) Hand Sewer Shoes Goal 3: Pt will be able to ambulate for 10 minutes with LRAD and no LOB with minimal fatigue in order to increase community ambulation-progressing (~5.5min max before fatigue/SOB requiring seated rest break) Hand Sewer Shoes Goal 4: Pt will increase tinetti score to >/=20/28 in order to reduce fall risk Minutes Tracking: Time In: 1300 Time Out: 1345 Minutes: 45 Timed Code Treatment Minutes: 44 Minutes Shirin Bajwa PTA Date: 10/27/2022 documented in this encounterBON [facility] [employer] Phone: 1(853) 417-967505-12-2023 History of Present illness Narrative* Shirin Bajwa PTA - 10/03/2022 12:30 PM EDT [facility] Daily Note Patient: Piotr Kerr : 1960 CSN #: [id number] Referring Physician: Jorge Pritchett DO Date: 10/03/2022 Treatment Diagnosis: weakness Onset Date: 08/13/22 PT Insurance Information: [employer] Total # of Visits Approved: 24 Per [...] order to improve functional strength---met 20 seconds Hand Sewer Shoes Goals Time Frame for Longterm Goals : 6 weeks Longterm Goal 1: Pt will be safe and independent with his HEP Hand [employer]er Shoes Goal 2: Pt will increase L LE strength to >/=4-/5 and R LE strength to 4/5 in order toincrease ambulation tolerance-met (R LE: 4 to 4+/5; L LE: 4/5 grossly except ankle DF: 4-/5) Longterm Goal 3: Pt will be able to ambulate for 10 minutes with LRAD and no LOB with minimal fatigue in order to increase community ambulation-progressing (~5.5min max before fatigue/SOB requiring seated rest break) Hand [employer]er Shoes Goal 4: Pt will increase tinetti score to >/=20/28 in order to reduce fall risk Minutes Tracking: Time In: 1231 Time Out: 1315 Minutes: 44 Shirin Bajwa PTA Date: 10/03/2022 documented in this encounterBON [employer] Phone: [phone] 755-847604-24-2023 History of Present illness Narrative* Shirin Bajwa, INSURANCE LICENSING SUPERVISOR - 09/15/2022 1:00 PM EDT [facility] Daily Note Patient: Piotr Kerr : 1960 CSN #: [id number] Referring Physician: Jorge Pritchett DO Date: 09/15/2022 Onset Date: 08/13/22 PT Insurance Information: [employer] Total # of Visits Approved: 12 Per [...] order to improve functional strength---met 20 seconds Longterm Goals Time Frame for Hand Sewer Shoes Goals : 6 weeks Longterm Goal 1: Pt will be safe and independent with his HEP Longterm Goal 2: Pt will increase L LE strength to >/=4-/5 and R LE strength to 4/5 in order toincrease ambulation tolerance Hand [employer]er Shoes Goal 3: Pt will be able to ambulate for 10 minutes with LRAD and no LOB with minimal fatigue in order to increase community ambulation Longterm Goal 4: Pt will increase tinetti score to >/20/28 in order to reduce fall risk Minutes Tracking: Time In: 1300 Time Out: 1342 Minutes: 42 Timed Code Treatment Minutes: 41 Minutes Shirin Bajwa PTA Date: 09/15/2022 documented in this encounterBON [facility] [employer] Phone: [phone] History of Present illness Narrative* Chris Sauceda, PT - 09/05/2022 3:30 PM EDT [facility] Daily Note Patient: Piotr Kerr : 1960 CSN #: [id number] Referring Physician: Jogre Pritchett DO Date: 09/05/2022 Treatment Diagnosis: weakness Onset Date: 08/13/22 PT Insurance Information: [employer] Total # of Visits Approved: 12 Per [...] seconds in order to improve functional strength\ Hand Sewer Shoes Goals Time Frame for Longterm Goals : 6 weeks Longterm Goal 1: Pt will be safe and independent with his HEP Hand Sewer Shoes Goal 2: Pt will increase L LE strength to >/=4-/5 and R LE strength to 4/5 in order toincrease ambulation tolerance Longterm Goal 3: Pt will be able to ambulate for 10 minutes with LRAD and no LOB with minimal fatigue in order to increase community ambulation Hand [employer]er Shoes Goal 4: Pt will increase tinetti score to >/20/28 in order to reduce fall risk Minutes Tracking: Time In: 2 Time Out: 1628 Minutes: 56 Timed Code Treatment Minutes: 54 Minutes Chris Sauceda PT Date: 09/05/2022 documented in this encounterBON [facility] [employer] Phone: [phone] 531-843404-07-2023 History of Present illness Narrative* Shirin Bajwa, INSURANCE LICENSING SUPERVISOR - 08/29/2022 2:45 PM EDT [facility] Daily Note Patient: Piotr Kerr : 1960 CSN #: [id number] Referring Physician: Jorge Pritchett DO Date: 08/29/2022 Treatment Diagnosis: weakness Onset Date: 08/13/22 PT Insurance Information: [employer] Total # of Visits Approved: 12 Per [...] seconds in order to improve functional strength Longterm Goals Time Frame for Longterm Goals : 6 weeks Longterm Goal 1: Pt will be safe and independent with his HEP Longterm Goal 2: Pt will increase L LE strength to >/=4-/5 and R LE strength to 4/5 in order toincrease ambulation tolerance Longterm Goal 3: Pt will be able to ambulate for 10 minutes with LRAD and no LOB with minimal fatigue in order to increase community ambulation Hand [employer]er Shoes Goal 4: Pt will increase tinetti score to >/20/28 in order to reduce fall risk Minutes Tracking: Time In: 1445 Time Out: 1528 Minutes: 43 Shirin Bajwa, INSURANCE LICENSING SUPERVISOR Date: 08/29/2022 documented in this encounterBON [facility] [employer] Phone: [phone] History of Present illness Narrative* Chris Sauceda PT - 08/25/2022 2:45 PM EDT [facility] Daily Note Patient: Piotr Kerr : 1960 CSN #: [id number] Referring Physician: Jorge Pritchett DO Date: 08/25/2022 Treatment Diagnosis: weakness Onset Date: 08/13/22 PT Insurance Information: [employer] Total # of Visits Approved: 12 Per [...] seconds in order to improve functional strength Hand [employer]er Shoes Goals Time Frame for Hand Sewer Shoes Goals : 6 weeks Longterm Goal 1: Pt will be safe and independent with his HEP Hand [employer]er Shoes Goal 2: Pt will increase L LE strength to >/=4-/5 and R LE strength to 4/5 in order toincrease ambulation tolerance Hand Sewer Shoes Goal 3: Pt will be able to ambulate for 10 minutes with LRAD and no LOB with minimal fatigue in order to increase community ambulation Hand [employer]er Shoes Goal 4: Pt will increase tinetti score to >/20/28 in order to reduce fall risk Minutes Tracking: Time In: 1443 Time Out: 1541 Minutes: 58 Timed Code Treatment Minutes: 55 Minutes Chris Sauceda PT Date: 08/25/2022 documented in this encounterBON [facility] Phone: [phone] 158-312203-29-2023 History of Present illness Narrative* Kelly Amaya PT - 08/20/2022 1:00 PM EDT [facility] Evaluation Date: 08/20/2022 Patient: Piotr Conleybailey : 1960 CSN #: [id number] Referring Physician: Jorge Pritchett DO Medical Diagnosis: M54.50 low back pain, R29.898 weakness Treatment Diagnosis: weakness Onset Date: 08/13/22 PT Insurance Information: [employer] Total # of Visits Approved: 12 Total [...] seconds in order to improve functional strength Longterm Goals Time Frame for Longterm Goals : 6 weeks Hand Sewer Shoes Goal 1: Pt will be safe and independent with his HEP Hand Sewer Shoes Goal 2: Pt will increase L LE strength to >/=4-/5 and R LE strength to 4/5 in order toincrease ambulation tolerance Hand Sewer Shoes Goal 3: Pt will be able to ambulate for 10 minutes with LRAD and no LOB with minimal fatigue in order to increase community ambulation Hand Sewer Shoes Goal 4: Pt will increase tinetti score to >/20/28 in order to reduce fall risk Patient Goals : to get my strength back Minutes Tracking: Time In: 1252 Time Out: 1350 Minutes: 58 Timed Code Treatment Minutes: 56 Minutes Kelly Amaya PT, DPT 08/20/2022 documented in this encounterBON [employer] Phone: [phone] 555-706703-20-2023 Evaluation note* Encounter Date Diagnosis Assessment Notes [...] use, the patient reduces the risk for WI, CVA, HTN, cardiac dysrhythmias and sudden cardiac deaths.The patient is also aware of the association between CHRIS and morning headaches, daytime somnolence, fatigue and obesity, which also has been improved with continued use.The patient is compliant with treatment, wearing the equipment every night for greater than 4 hours.The patient is instructed to continue use of the CPAP for CHRIS treatment. Jul, long-term (current) use of insulin (ICD-10 - Z79.4) Jul, Hx of cerebral infar ction (ICD-10 - Z86.73) Continue secondary preventive measures [facility] Other 02-21-2023 History of Present illness Narrative* Julissa Campbell RN - 07/15/2022 3:00 PM EST Discharge instructions given to patient and patients . Diaz catheter care reviewed and demonstrated to patient. Patient and verbalize understanding and denies any questions at this time. Kenya Irizarry SEMICONDUCTOR PROCESSING GROUP LEADER notified of patients BP. Patient states that he normally takes his BP medications in the evening at dinner time. Per Kenya Irizarry SEMICONDUCTOR PROCESSING GROUP LEADER patient is to take BP medication [...] and cardiac clearance. documented in this encounterBON [facility] [employer] Phone: [phone]) 407-383902-21-2023 Hospital Discharge instructions* Discharge Instructions* Julissa Campbell [...] is called flank pain.) Call Dr. Ferrer ([phone]) if you develop: Fever over 100 degrees [...] Call Dr. Ferrer office for follow-up appointment ([phone]). documented in this [facility] [employer] Phone: [phone]) [phone] Evaluation note* Encounter Date Diagnosis Assessment Notes Treatment Notes Treatment Clinical Notes Jun, Cardiomyopathy, ischemic (ICD-10 - I25.5) NM stress: inferolateral ischemia 06/2022 [employer] Other 02-17-2023 History of Present illness Narrative* Fatmata Cecilia - 07/11/2022 10:00 AM EST Explained policies and procedure of an echocardiogram/Doppler study. documented in this [facility] [employer] Phone: [phone]) 837-307602-17-2023 History of Present illness Narrative* Alie Dunn RN - 07/11/2022 9:15 AM EST Instructed on objectives and procedure of lexiscan/cardiolite stress test. documented in this [facility] [employer] Phone: [phone]) 504-379302-08-2023 Evaluation note* Encounter Date Diagnosis Assessment Notes Treatment Notes Treatment Clinical Notes Jun, Preop exam for internal medicine (ICD-10 - Z01.818) Reviewed medication w/ patient. He will be discussing stop date for his Aspirin and Plavix with his Hand Profiler. Jun, ASHD (arteriosclerotic heart disease) (ICD-10 - I25.10) Stable w/o activity limiting symptoms. He is aware of the increased risk for WI when off DAPT. Jun, Primary hypertension (ICD-10 [...] thrombosis with d/c DAPT. Jun, Other Stable [employer] Other [id number] History of Present illness Narrative* Huang Urbina, PT - 05/22/2022 1:15 PM EST [facility] Note Patient: Piotr Kerr : 1960 CSN #: [id number] Referring Physician: Jorge Pritchett DO Date: 05/22/2022 Treatment Diagnosis: Difficulty walking PT Insurance Information: [employer] Total # of Visits Approved: 45 Per [...] no LOB to improve functional strength. -MET Longterm Goals Time Frame for Longterm Goals : 6 weeks Longterm Goal 1: Patient to be independent and compliant with HEP.--met Hand [employer]er Shoes Goal 2: Patient to have improved L LE strength >/=4-/5 and R LE >/=4/5 grossly for improved ease with transfers and ambulation. Longterm Goal 3: Patient to be able to stand/walk >/=5 mins with LRAD and no LOB or fatigue with SpO2 >/=90% for improved functional endurance.-met Hand [employer]er Shoes Goal 4: Patient to have improved Tinetti balance score >/=19/28 to decrease fall risk. Hand [employer]er Shoes Goal 5: Updated: Pt to stand/ambulate >/=10minutes with LRAD and no LOB or fatigue to improve endurance. Minutes Tracking: Time In: 1321 Time Out: 1414 Minutes: 53 Timed Code Treatment Minutes: 41 Minutes Huang Urbina PT, DPT Date: 05/22/2022 documented in this encounterBON [facility] Work Phone: [phone] History of Present illness Narrative* Chris Sauceda, GRACY - 03/31/2022 4:30 PM EST [facility] Daily Note Patient: Piotr Kerr : 1960 CSN #: [id number] Referring Physician: Jorge Pritchett DO Date: 03/31/2022 Treatment Diagnosis: Difficulty walking PT Insurance Information: [employer] Total # of Visits Approved: 45 Per [...] sink ex 10x Exercise 7: SC amb [id number] Exercise 9: Heel/toe raises + lateral step [...] no LOB to improve functional strength. -MET Longterm Goals Time Frame for Hand Sewer Shoes Goals : 6 weeks Longterm Goal 1: Patient to be independent and compliant with HEP.--met Hand [employer]er Shoes Goal 2: Patient to have improved L LE strength >/=4-/5 and R LE >/=4/5 grossly for improved ease with transfers and ambulation. Hand [employer]er Shoes Goal 3: Patient to be able to stand/walk >/=5 mins with LRAD and no LOB or fatigue with SpO2 >/=90% for improved functional endurance.-met Hand [employer]er Shoes Goal 4: Patient to have improved Tinetti balance score >/=19/28 to decrease fall risk. Hand Sewer Shoes Goal 5: Updated: Pt to stand/ambulate >/=10minutes with LRAD and no LOB or fatigue to improve endurance. Minutes Tracking: Time In: 1632 Time Out: 1722 Minutes: 50 Timed Code Treatment Minutes: 48 Minutes Chris Sauceda PT Date: 03/31/2022 documented in this encounterBON [email or web address] [employer] Phone: 1([phone]) 671-392211-02-2022 History of Present illness Narrative* Shirin Bajwa PTA - 03/26/2022 2:30 PM EDT [facility] Daily Note Patient: Piotr Kerr : 1960 CSN #: [id number] Referring Physician: Jorge Pritchett DO Date: 03/26/2022 Diagnosis: Weakness of both LE's, R29.898 Treatment Diagnosis: Difficulty walking PT Insurance Information: [employer] Total # of Visits Approved: 45 Per [...] with 8# ball Exercise 7: SC amb [id number] Exercise 10: ignacio step overs (small) forward [...] no LOB to improve functional strength. -MET Longterm Goals Time Frame for Hand Sewer Shoes Goals : 6 weeks Hand [employer]er Shoes Goal 1: Patient to be independent and compliant with HEP.--met Longterm Goal 2: Patient to have improved L LE strength >/=4-/5 and R LE >/=4/5 grossly for improved ease with transfers and ambulation. Hand [employer]er Shoes Goal 3: Patient to be able to stand/walk >/=5 mins with LRAD and no LOB or fatigue with SpO2 >/=90% for improved functional endurance.-met Hand [employer]er Shoes Goal 4: Patient to have improved Tinetti balance score >/=19/28 to decrease fall risk. Hand Sewer Shoes Goal 5: Updated: Pt to stand/ambulate >/=10minutes with LRAD and no LOB or fatigue to improve endurance. Minutes Tracking: Time In: 1433 Time Out: 1511 Minutes: 38 Shirin Bajwa PTA Date: 03/26/2022 documented in this encounterBON [facility] [employer] Phone: [phone] History of Present illness Narrative* Huang Urbina, PT - 03/24/2022 3:00 PM EDT [facility] Daily Note Patient: Piotr Kerr : 1960 CSN #: [id number] Referring Physician: Jorge Pritchett DO Date: 03/24/2022 Treatment Diagnosis: Difficulty walking PT Insurance Information: [employer] Total # of Visits Approved: 36 Per [...] resistance to continue to work toward his penitentiary strength goals. He reported fatigue following his [...] no LOB to improve functional strength. -MET Hand [employer]er Shoes Goals Time Frame for Longterm Goals : 6 weeks Longterm Goal 1: Patient to be independent and compliant with HEP.--met Hand [employer]er Shoes Goal 2: Patient to have improved L LE strength >/=4-/5 and R LE >/=4/5 grossly for improved ease with transfers and ambulation. Hand [employer]er Shoes Goal 3: Patient to be able to stand/walk >/=5 mins with LRAD and no LOB or fatigue with SpO2 >/=90% for improved functional endurance.-progressing Longterm Goal 4: Patient to have improved Tinetti balance score >/=19/28 to decrease fall risk. Minutes Tracking: Time In: 1505 Time Out: 1550 Minutes: 45 Timed Code Treatment Minutes: 43 Minutes Huang Urbina PT, DPT Date: 03/24/2022 documented in this encounterBON [email or web address] [employer] Phone: [phone]) [phone] History of Present illness Narrative* Chris Sauceda, PT - 03/18/2022 1:45 PM EDT [facility] Daily Note Patient: Piotr Kerr : 1960 CSN #: [id number] Referring Physician: Jorge Pritchett DO Date: 03/18/2022 [...] no LOB to improve functional strength. -MET Hand [employer]er Shoes Goals Time Frame for Hand Sewer Shoes Goals : 6 weeks Longterm Goal 1: Patient to be independent and compliant with HEP.--met Hand Sewer Shoes Goal 2: Patient to have improved L LE strength >/=4-/5 and R LE >/=4/5 grossly for improved ease with transfers and ambulation. Hand Sewer Shoes Goal 3: Patient to be able to stand/walk >/=5 mins with LRAD and no LOB or fatigue with SpO2 >/=90% for improved functional endurance.-progressing Longterm Goal 4: Patient to have improved Tinetti balance score >/=/28 to decrease fall risk. Minutes Tracking: Time In: 1358 Time Out: 1457 Minutes: 59 Timed Code Treatment Minutes: 55 Minutes Chris Sauceda PT Date: 03/18/2022 documented in this encounterBON [facility] [employer] Phone: [phone]) [phone] History of Present illness Narrative* Yumiko Montes, ALEXANDRA - 03/14/2022 12:45 PM EDT [facility] Daily Note Patient: Piotr Kerr : 1960 CSN #: [id number] Referring Physician: Jorge Pritchett DO Date: 03/14/2022 Treatment Diagnosis: Difficulty walking PT Insurance Information: [employer] Total # of Visits Approved: 36 Per [...] no LOB to improve functional strength. -MET Hand Sewer Shoes Goals Time Frame for Hand Sewer Shoes Goals : 6 weeks Longterm Goal 1: Patient to be independent and compliant with HEP.--met Longterm Goal 2: Patient to have improved L LE strength >/=4-/5 and R LE >/=4/5 grossly for improved ease with transfers and ambulation. Hand Sewer Shoes Goal 3: Patient to be able to stand/walk >/=5 mins with LRAD and no LOB or fatigue with SpO2 >/=90% for improved functional endurance.-progressing Longterm Goal 4: Patient to have improved Tinetti balance score >/=19/28 to decrease fall risk. Minutes Tracking: Time In: 1245 Time Out: 1327 Minutes: 42 Yumiko Montes, INSURANCE LICENSING SUPERVISOR Date: 03/14/2022 documented in this encounterBON [facility] [employer] Work Phone: [phone] History of Present illness Narrative* Rashel Cárdenas, PT - 03/06/2022 12:30 PM EDT [facility] Daily Note Patient: Piotr Kerr : 1960 CSN #: [id number] Referring Physician: Jorge Pritchett DO Date: 03/06/2022 Diagnosis: Weakness of both LE's, R29.898 Treatment Diagnosis: Difficulty walking PT Insurance Information: [employer] Total # of Visits Approved: 36 Per [...] no LOB to improve functional strength. -MET Longterm Goals Time Frame for Hand Sewer Shoes Goals : 6 weeks Longterm Goal 1: Patient to be independent and compliant with HEP.--met Hand Sewer Shoes Goal 2: Patient to have improved L LE strength >/=4-/5 and R LE >/=4/5 grossly for improved ease with transfers and ambulation. Hand Sewer Shoes Goal 3: Patient to be able to stand/walk >/=5 mins with LRAD and no LOB or fatigue with SpO2 >/=90% for improved functional endurance.-progressing Hand Sewer Shoes Goal 4: Patient to have improved Tinetti balance score >/=19/28 to decrease fall risk. Minutes Tracking: Time In: 1228 Time Out: 1321 Minutes: 53 Timed Code Treatment Minutes: 50 Minutes Rashel Cárdenas PT, DPT Date: 03/06/2022 documented in this encounterBON [email or web address] [facility] [employer] Work Phone: 1(443) [phone] History of Present illness Narrative* Yumiko Montes, INSURANCE LICENSING SUPERVISOR - 03/04/2022 12:00 PM EDT [facility] Daily Note Patient: Piotr Kerr : 1960 CSN #: [id number] Referring Physician: Jorge Pritchett DO Date: 03/04/2022 Treatment Diagnosis: Difficulty walking PT Insurance Information: [employer] Total # of Visits Approved: 36 Per [...] no LOB to improve functional strength. -MET Hand Sewer Shoes Goals Time Frame for Hand Sewer Shoes Goals : 6 weeks Longterm Goal 1: Patient to be independent and compliant with HEP.--met Longterm Goal 2: Patient to have improved L LE strength >/=4-/5 and R LE >/=4/5 grossly for improved ease with transfers and ambulation. Hand Sewer Shoes Goal 3: Patient to be able to stand/walk >/=5 mins with LRAD and no LOB or fatigue with SpO2 >/=90% for improved functional endurance.-progressing Hand Sewer Shoes Goal 4: Patient to have improved Tinetti balance score >/=19/28 to decrease fall risk. Minutes Tracking: Time In: 1202 Time Out: 1245 Minutes: 43 Yumiko Montes PTA Date: 03/04/2022 documented in this encounterBON [facility] [employer] Phone: [phone]) 994-782809-16-2022 History of Present illness Narrative* Yumiko oMntes PTA - 02/07/2022 2:15 PM EDT [facility] Daily Note Patient: Piotr Kerr : 1960 CSN #: [id number] Referring Physician: Jorge Pritchett DO Date: 02/07/2022 Treatment Diagnosis: Difficulty walking PT Insurance Information: [employer] Total # of Visits Approved: 24 Per [...] no LOB to improve functional strength. -MET Hand Sewer Shoes Goals Time Frame for intermediate teacher goals : 6 weeks long-term goal 1: Patient to be independent and compliant with HEP.--met long-term goal 2: Patient to have improved L LE strength >/=4-/5 and R LE >/=4/5 grossly for improved ease with transfers and ambulation. long-term goal 3: Patient to be able to stand/walk >/=5 mins with LRAD and no LOB or fatigue with SpO2 >/=90% for improved functional endurance.-progressing intermediate teacher goal 4: Patient to have improved Tinetti balance score >/=19/28 to decrease fall risk. Minutes Tracking: Time In: 1415 Time Out: 1501 Minutes: 46 Yumiko Montes, INSURANCE LICENSING SUPERVISOR Date: 02/07/2022 documented in this encounterBON [employer] Phone: 1(169) 843-163909-06-2022 History of Present illness Narrative* Rashel Cárdenas, PT - 01/28/2022 2:15 PM EDT [facility] Daily Note Patient: Piotr Kerr : 1960 CSN #: [id number] Referring Physician: Jorge Pritchett DO Date: 01/28/2022 Diagnosis: Weakness of both LE's, R29.898 Treatment Diagnosis: Difficulty walking PT Insurance Information: [employer] Total # of Visits Approved: 24 Per [...] no LOB to improve functional strength. -MET Longterm Goals Time Frame for intermediate teacher goals : 6 weeks long-term goal 1: Patient to be independent and compliant with HEP.--met long-term goal 2: Patient to have improved L LE strength >/=4-/5 and R LE >/=4/5 grossly for improved ease with transfers and ambulation. long-term goal 3: Patient to be able to stand/walk >/=5 mins with LRAD and no LOB or fatigue with SpO2 >/=90% for improved functional endurance.-progressing long-term goal 4: Patient to have improved Tinetti balance score >/=19/28 to decrease fall risk. Minutes Tracking: Time In: 1414 Time Out: 1500 Minutes: 46 Timed Code Treatment Minutes: 45 Minutes Rashel Cárdenas PT, DPT Date: 01/28/2022 documented in this encounterBON [facility] [employer] Phone: 1(762) 469-367309-02-2022 History of Present illness Narrative* Rashel Cárdenas PT - 01/24/2022 11:45 AM EDT [facility] Daily Note Patient: Piotr Kerr : 1960 CSN #: [id number] Referring Physician: Jorge Pritchett DO Date: 01/24/2022 Diagnosis: Weakness of both LE's, R29.898 Treatment Diagnosis: Difficulty walking PT Insurance Information: [employer] Total # of Visits Approved: 24 Per [...] no LOB to improve functional strength. -MET Longterm Goals Time Frame for intermediate teacher goals : 6 weeks long-term goal 1: Patient to be independent and compliant with HEP.--met intermediate teacher goal 2: Patient to have improved L LE strength >/=4-/5 and R LE >/=4/5 grossly for improved ease with transfers and ambulation. intermediate teacher goal 3: Patient to be able to stand/walk >/=5 mins with LRAD and no LOB or fatigue with SpO2 >/=90% for improved functional endurance.-progressing long-term goal 4: Patient to have improved Tinetti balance score >/=19/28 to decrease fall risk. Minutes Tracking: Time In: 1146 Time Out: 1234 Minutes: 48 Timed Code Treatment Minutes: 47 Minutes Rashel Cárdenas PT, DPT Date: 01/24/2022 documented in this encounterBON [facility] [employer] Phone: [phone]) 800-168808-25-2022 History of Present illness Narrative* Rashel Cárdenas PT - 01/16/2022 2:30 PM EDT [facility] Daily Note Patient: Piotr Kerr : 1960 CSN #: [id number] Referring Physician: Jorge Pritchett DO Date: 01/16/2022 Diagnosis: Weakness of both LE's, R29.898 Treatment Diagnosis: Difficulty walking PT Insurance Information: [employer] Total # of Visits Approved: 24 Per [...] no LOB to improve functional strength. -MET Longterm Goals Time Frame for long-term goals : 6 weeks long-term goal 1: Patient to be independent and compliant with HEP.--met long-term goal 2: Patient to have improved L LE strength >/=4-/5 and R LE >/=4/5 grossly for improved ease with transfers and ambulation. long-term goal 3: Patient to be able to stand/walk >/=5 mins with LRAD and no LOB or fatigue with SpO2 >/=90% for improved functional endurance.-progressing long-term goal 4: Patient to have improved Tinetti balance score >/=19/28 to decrease fall risk. Minutes Tracking: Time In: 1430 Time Out: 1512 Minutes: 42 Timed Code Treatment Minutes: 41 Minutes Rashel Cárdenas, PT, DPT Date: 01/16/2022 documented in this encounterBON [employer] Phone: [phone]) 496-440908-17-2022 History of Present illness Narrative* Doc Agrawal, INSURANCE LICENSING SUPERVISOR - 01/08/2022 1:45 PM EDT [facility] Daily Note Patient: Piotr Kerr : 1960 CSN #: [id number] Referring Physician: Jorge Pritchett DO Date: 01/08/2022 [...] no LOB to improve functional strength. -MET Longterm Goals Time Frame for intermediate teacher goals : 6 weeks intermediate teacher goal 1: Patient to be independent and compliant with HEP. long-term goal 2: Patient to have improved L LE strength >/=4-/5 and R LE >/=4/5 grossly for improved ease with transfers and ambulation. long-term goal 3: Patient to be able to stand/walk >/=5 mins with LRAD and no LOB or fatigue with SpO2 >/=90% for improved functional endurance. long-term goal 4: Patient to have improved Tinetti balance score >/=19/28 to decrease fall risk. Minutes Tracking: Time In: 1346 Time Out: 1430 Minutes: 44 Timed Code Treatment Minutes: 43 Minutes Doc Agrawal PTA Date: 01/08/2022 documented in this encounterBON [facility] [employer] Phone: [phone]) [phone] History of Present illness Narrative* Doc Agrawal PTA - 01/03/2022 2:45 PM EDT [facility] Daily Note Patient: Piotr Kerr : 1960 CSN #: [id number] Referring Physician: Jorge Pritchett DO Date: 01/03/2022 [...] no LOB to improve functional strength. -MET Hand Sewer Shoes Goals Time Frame for intermediate teacher goals : 6 weeks long-term goal 1: Patient to be independent and compliant with HEP. 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 long-term goal 3: Patient to be able to stand/walk >/=5 mins with LRAD and no LOB or fatigue with SpO2 >/=90% for improved functional endurance. intermediate teacher goal 4: Patient to have improved Tinetti balance score >/=19/28 to decrease fall risk. Minutes Tracking: Time In: 1446 Time Out: 1540 Minutes: 54 Timed Code Treatment Minutes: 49 Minutes Doc Agrawal INSURANCE LICENSING SUPERVISOR Date: 01/03/2022 documented in this encounterBON [facility] Work Phone: [phone]) [phone] History of Present illness Narrative* Doc Agrawal PTA - 01/01/2022 4:15 PM EDT [facility] Daily Note Patient: Piotr Kerr : 1960 [facility] #: [id number] Referring Physician: Jorge Pritchett DO Date: 01/01/2022 [...] and no LOB to improve functional strength. Hand Sewer Shoes Goals Time Frame for long-term goals : 6 weeks intermediate teacher goal 1: Patient to be independent and compliant with HEP. 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 intermediate teacher goal 3: Patient to be able to stand/walk >/=5 mins with LRAD and no LOB or fatigue with SpO2 >/=90% for improved functional endurance. long-term goal 4: Patient to have improved Tinetti balance score >/=19/28 to decrease fall risk. Minutes Tracking: Time In: 1616 Time Out: 1703 Minutes: 47 Timed Code Treatment Minutes: 45 Minutes Doc AgrawalALEXANDRA Date: 01/01/2022 documented in this encounterBON [facility] Work Phone: [phone]) 217-373208-05-2022 History of Present illness Narrative* Rashel Cárdenas, PT - 12/27/2021 2:00 PM EDT [facility] Daily Note Patient: Piotr Kerr : 1960 CSN #: [id number] Referring Physician: Jorge Pritchett DO Date: 12/27/2021 Diagnosis: Weakness of both LE's, R29.898 Treatment Diagnosis: Difficulty walking PT Insurance Information: [employer] Total # of Visits Approved: 12 Per [...] and no LOB to improve functional strength. Longterm Goals Time Frame for long-term goals : 6 weeks long-term goal 1: Patient to be independent and compliant with HEP. 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 long-term goal 3: Patient to be able to stand/walk >/=5 mins with LRAD and no LOB or fatigue with SpO2 >/=90% for improved functional endurance. intermediate teacher goal 4: Patient to have improved Tinetti balance score >/=19/28 to decrease fall risk. Minutes Tracking: Time In: 1355 Time Out: 1444 Minutes: 49 Timed Code Treatment Minutes: 47 Minutes Rashel Cárdenas PT, DPT Date: 12/27/2021 documented in this encounterBON [facility] [employer] Phone: [phone]) 231-967807-26-2022 History of Present illness Narrative* Rashel Cárdenas PT - 12/17/2021 10:00 AM EDT [facility] Evaluation Date: 12/17/2021 Patient: Piotr Kerr : 1960 CSN #: [id number] Referring Physician: Jorge Pritchett DO Medical Diagnosis: Weakness of both LE's, R29.898 Treatment Diagnosis: Difficulty walking PT Insurance Information: [employer] Total # of Visits to Date: 1 [...] and no LOB to improve functional strength. 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 long-term goal 3: Patient to be able to stand/walk >/=5 mins with LRAD and no LOB or fatigue with SpO2 >/=90% for improved functional endurance. long-term goal 4: Patient to have improved Tinetti balance score >/=19/28 to decrease fall risk. Minutes Tracking: Time In: 1029 Time Out: 1101 Minutes: 32 Timed Code Treatment Minutes: 31 Minutes Rashel Cárdenas PT, DPT 12/17/2021 [facility] [employer] Phone: [phone] History of Present illness Narrative* Josefa Ruvalcaba [...] in this encounterBAN[facility] [employer] Phone: [phone]) [phone] History of Present illness Narrative* Tamiko Rey - 10/14/2021 11:00 AM EDT Cardiopulmonary Rehab Medical Nutrition Therapy Food Diary Evaluation Patient Name: Piotr Kerr Registered Dietitian: Tamiko Le, Investment Banking Associate Date: 10/14/2021 Dear Piotr, Thank you for [...] can come from things like your strudel, wallisian toast sticks, andPower aid. Men only need [...] Recommendations are based on guidelines from the [place] [employer], [place] [employer] and current literature. Feel free to call with questions or concerns [phone] or [phone] Tamiko Le Investment Banking Associate documented in this encounterBON [employer] Phone: [phone]) 301-644705-06-2022 History of Present illness Narrative* Sally Armijo [...] dizziness at <5 METs or during recovery WI or cardiac surgery complicated by cardiogenic shock, [...] resting or exercise induced complex dysrhythmias Uncomplicate WI, CABG, angioplasty, atherectomy, or stent Normal hemodynamic [...] sets may be added. Education: [x] Equipment [place] [] Understanding BP [x] S/S to report [...] Score: 4 PHQ9 score: Intervention: [] Psych Consult/director social welfare [] Uses stress management skills [] Physician [...] of body weight over the program, utilizing oral and maxillofacial surgery resident recommendations, moderating nutrional intake, and performing regular aerobic and strength training exercises as prescribed, as evidenced by pre- and post- program nutriton survey and routine rounding with patient to ascertain progression toward goal per patient's self report, food diary, and Ifzo-bshc-Nqupy screening survey. Strive for a lower daily [...] Rehabilitation Physician Order Form Piotrarin Kerr 1960 [id number] 09/27/2021 [x] Phase 2 ECG Monitored Cardiac Rehabilitation [] WI [x] PTCA with stents [] CABG [] [...] Initial History and Assessment Piotr Kerr 1960 [id number] 09/27/2021 Primary Diagnosis: PTCA w/SYLVIA on 06/03/2021 and 09/09/2021 Living Will: [] Yes [x] No On File: [] Yes [] No [x] N/A Durable Power of Trust Manager Assistant: [] Yes [x] No Medical History Past Medical History: Diagnosis Date Cerebrovascular accident (CVA) (HCC) Chronic pain COVID-19 06/05/2021 Essential hypertension H/O heart artery stent long-term (current) use of insulin (HCC) Type 2 [...] usually run? 110-160 Have you seen a oral and maxillofacial surgery resident or critical care educator [] Yes [x] No HbA1c on [...] No significant change was found VR-66 bpm KS-144 ms QRS-80 ms QT/QTc-382/400 ms Cardiac Cath [...] dizziness at <5 METs or during recovery WI or cardiac surgery complicated by cardiogenic shock, [...] resting or exercise induced complex dysrhythmias Uncomplicate WI, CABG, angioplasty, atherectomy, or stent Normal hemodynamic [...] of body weight over the program, utilizing oral and maxillofacial surgery resident recommendations, moderating nutrional intake, and performing regular aerobic and strength training exercises as prescribed, as evidenced by pre- and post- program nutriton survey and routine rounding with patient to ascertain progression toward goal per patient's self report, food diary, and Prjf-mube-Nxlrl screening survey. Strive for a lower daily [...] routine rounding with patient. [facility] this [facility] Phone: 1(754) 305-579801-08-2022 History of Present illness Narrative* Kae Goodrich RN - 06/01/2021 2:25 PM EST Patient discharged to home with at this time. Transports via w/c. * Kae Goodrich RN - 06/01/2021 2:08 PM EST Discharge instructions reviewed with patient and . Both are aware of all upcoming appointments and need for follow up with urology and Dr. Kan after stenting completed on Thursday at [facility]. Education given regarding diaz and diaz care. Supplies provided. Patient and voice understandingof all. Opportunity given for questions to be asked and answered. Patient and voice understanding of all. * Kae Goodrich RN - 06/01/2021 1:17 PM EST [employer] attempts to contact patient's Mary for ETA, message left on voicemail. 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 He also has a history of hypertension and high cholesterol over the past 5-7 years. He also notes he is a diabetic and uses insulin 3 times per day. He had a stroke in June 2020, he was seen and evaluated at [facility]. Since his storke he has had [...] [facility] He is awaiting [...] outpatient PCI on Thursday at noon at [facility]. 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 REVIEW OF SYSTEMS: 14 systems were reviewed. Pertinent positives and negatives as above, all else negative. Past Surgical History: Procedure Laterality Date CARDIAC CATHETERIZATION 05/29/2021 Dr Mars/[facility]/right radial-Severe three vessel coronary artery disease involving [...] [employer] 11 Cholecalciferol (VITAMIN D3) 1.25 MG (95645 UT) CAPS Take 1 capsule by mouth [...] ventricular end diastolic pressure. Awaiting transfer to [facility] for stents, however there are no beds [...] showed mild osteoarthritis Chronic systolic heart failure: [place] Heart Association Class: IV (Severe limitations, symptoms [...] with Cassie Morejon CNP working with the [facility] who was also in agreement with the plan. We will have him follow up with us as an outpatient in 2-3 weeks. Sincerely, Beata Harris PA-C [facility] Clinic Director [address] [place] [address] , I believe that the risk of significant morbidity and mortality related to the patient's current medical conditions are: high. May 31, 2021 * Kae Goodrich RN - 05/31/2021 7:58 AM EST Patient's Mary updated via telephone. * Lamont Vasquez MD - 05/31/2021 7:39 AM EST Progress Note Lamont Vasquez MD OBJECTIVE: Patient seen for f/u of 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 [...] severe stenosis, he is awaiting transfer to [facility]. 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 Log Cooker took bipap mask off and left pt on room air. RN made aware. Will continue to monitor. * Ivy Yin RN - 05/30/2021 9:36 PM EST Log Cooker at bedside for shift assessment. 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 has a past surgical history that includes [...] stents placed in 2013 or 2015 in [place] at [facility]. He also has a history of hypertension and high cholesterol over the past 5-7 years. He also notes he is a diabetic and uses insulin 3 times per day. He had a stroke in June 2020, he was seen and evaluated at [facility]. Since his storke he has had [...] is currently waiting to be transferred to [facility] post cardiac cath yesterday. He is awaiting [...] Medical History: Diagnosis Date Cerebrovascular accident (CVA) ([facility]) Chronic pain Essential hypertension H/O heart artery stent long-term (current) use of insulin ([facility]) Type 2 diabetes mellitus without complication ([facility]) CURRENT ALLERGIES: Patient has no known allergies. REVIEW OF SYSTEMS: 14 systems were reviewed. Pertinent positives and negatives as above, all else negative. Past Surgical History: Procedure Laterality Date CARDIAC CATHETERIZATION 05/29/2021 Dr Mars/[facility]/right radial-Severe three vessel coronary artery disease involving [...] NatRelief 11 Cholecalciferol (VITAMIN D3) 1.25 MG (74343 UT) CAPS Take 1 capsule by mouth [...] ventricular end diastolic pressure. Awaiting transfer to [facility] for stents Antiplatelet Agent: Continue Aspirin 81 [...] to be done. Chronic systolic heart failure: [place] Heart Association Class: IV (Severe limitations, symptoms [...] and follow up Sincerely, Beata Harris PA-C [facility] Clinic Director [address] [place] [address] , I believe that the risk of [...] by Nathalie RAINES. 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 (HCC), and Type [...] Time Out 0854 Minutes 24 Radha Soto, INSURANCE LICENSING SUPERVISOR * Lamont Vasquez MD - 05/30/2021 7:31 AM EST Progress Note Lamont Vasquez MD OBJECTIVE: Patient seen for f/u of 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 [...] LIST: Principal Problem: 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 * ASSESSMENT / PLAN: 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 (HCC) Principal Problem: 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 [...] 05/29/2021 2:25 PM EST Physical Therapy Facility/Department: [facility] Daily Treatment Note NAME: Piotr Kerr : 1960 Date of Service: 05/29/2021 Discharge Recommendations: Continue to assess pending progress Assessment Treatment Diagnosis: general weakness, unsteady gait Prognosis: Good Activity Tolerance Activity Tolerance: Patient Tolerated treatment well Patient Diagnosis(es): There were no encounter diagnoses. 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 Arrived back to [facility] [address] via wheelchair. Pt. Alert and oriented and x4. Pressure dressing clean dry and intact on right wrist with good cap refill to fingers. Pt. Denies any needs at this time. Assessment completed. Vitals obtained. Will continue to monitor. * Myrna Mayen RN - 05/29/2021 9:45 AM EST Called [facility] to initiate transfer to [facility]. Patient is referred to CT Surgeon for PCI per Dr. Mars. * Kena Rose RN - 05/29/2021 9:14 AM EST Vital signs stable. Dressing to access site clean and dry. Resting quietly with eyes closed, respirations easy. Waiting on response from interventionalist. 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 Resting in bed comfortably, assessment completed. Vitals obtained. Pt. Denies any pain at this time. Log Cooker educated patient on going down to school laboratory technician this am. Log Cooker called and updated per patient request. Call [...] No discharge needs at this time Contact: [phone] * JEAN Hutton/Choco - 05/28/2021 12:12 PM EST Occupational Therapy Occupational Therapy Initial Assessment Date: 05/28/2021 Patient Name: Piotr Kerr : 1960 Date of Service: 05/28/2021 Discharge Recommendations: Continue to assess pending progress Assessment Performance deficits / Impairments: Decreased functional mobility ;Decreased ADL status;Decreased strength;Decreased balance;Decreased endurance Assessment: 60 y/o M admitted to [facility] for CAD. 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 has no past surgical history on file. 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 Would like options for home care, family welfare social work professor notified. * Hilda Retana - 05/28/2021 10:44 AM EST Echocardiogram/Doppler done at bedside. Instructed on policies and procedure. * ELOINA Dunaway - 05/28/2021 10:20 AM EST Discussed discharge plans with the patient. Patient is a 60 year old male here with Coronary arterydisease involving [place] heart with angina pectoris and documented spasm [...] with medication costs. Patient served in the [employer]. The discharge is home with . He may need home health. He does not have advance directives. SLOT MACHINE DEPARTMENT FLOORPERSON to monitor and assist with any needs as they arise. Will follow up with the regarding any discharge needs. 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 Vasquez about patient complaining [...] noted. Call light given. [facility] [employer] Phone: 1(820) 390-242601-08-2022 Hospital course Narrative* Cassie Morejon, CLINICAL SOCIOLOGIST - COURT RECORDER - 06/01/2021 8:43 AM EST Images from the original note were not included. Discharge Summary-addendum Piotr Kerr : 1960 Admit date: 05/27/2021 Discharge date: 06/01/2021 Admitting Physician: Lamont Vasquez MD Discharge Diagnoses: Principal Problem: 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 [...] with doppler with color Result Date: 05/28/[address] [facility] Transthoracic Echocardiography Report (TTE) Patient Name LAURA Date of Study 05/28/2021 PIOTR A Date of 1960 Gender Male Age 60 year(s) Race Room Number 0333 Height: 72 inch, 182.88 cm Corporate ID [id number] Weight: 231 pounds, 104.8 kg # Patient Acct [id number] BSA: 2.26 m^2 BMI: 31.33 # kg/m^2 MR # [id number] Electronic Tester Hilda Arango Interpreting Physician Alma Kan Fellow Referring Nurse Cassie Morejon, COURT RECORDER Practitioner Interpreting Referring Physician Fellow Type of Study TTE procedure:2D Echocardiogram, M-Mode, Doppler, ColorDoppler. Procedure Date Date: 05/28/2021 Start: 10:54 AM [facility] Indic ations:Hypertension. History / Tech. 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 Read thedirections carefully, and ask your doctor or other care provider to review them with you. Where to Get Your Medications These medications were sent to [facility]/pharmacy #[id number] - [place], [place] - [address] [facility] - [phone] - F [phone] [address] [facility] [address] carvedilol 3.125 MG tablet cyclobenzaprine 10 MG [...] applicable) KIRIT/ARB in CHF: NA Statin in [place]: NA ASA in [place]: NA Statin in CVA: NA Antiplatelet in CVA: NA Total time spent on discharge services: 40 minutes Including the following activities: Evaluation and Management of patient Discussion with patient and/or surrogate about current care plan Coordination with Case Management and/or Delivery Driver Coordination of care with Consultants (if applicable) Coordination of care with Receiving Facility Physician (if applicable) Completion of DME forms (if applicable) Preparation of Discharge Summary Preparation of Medication Reconciliation Preparation of Discharge Prescriptions Signed: Cassie Morejon APRN - COURT RECORDER, TYRESE, FACULTY RESEARCH PHYSICIAN-C 06/01/2021, 8:44 AM Associated attestation - Lamont Vasquez MD - 06/01/2021 12:37 PM EST Images from the original note were not included. I personally evaluated and examined the patient face to face in conjunction with the APC and agree with the management and disposition of the patient. 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 ([facility]) 05/27/2021 CHRIS (obstructive sleep apnea) 05/27/2021 Uncontrolled type 2 diabetes mellitus with hyperglycemia ([facility]) 07/29/2020 BPH with obstruction/lower urinary tract symptoms 07/25/2020 Incomplete emptying of bladder 07/25/2020 Additional Diagnoses: Diagnosis Date Cerebrovascular accident (CVA) ([facility]) Chronic pain Essential hypertension H/O heart artery stent long-term (current) use of insulin ([facility]) Type 2 diabetes mellitus without complication (HCC) [...] with doppler with color Result Date: 05/28/[address] [facility] Transthoracic Echocardiography Report (TTE) Patient Name LAURA Date of Study 05/28/2021 PIOTR A Date of 1960 Gender Male Age 60 year(s) Race Room Number 0333 Height: 72 inch, 182.88 cm Corporate ID [id number] Weight: 231 pounds, 104.8 kg # Patient Acct [id number] BSA: 2.26 m^2 BMI: 31.33 # kg/m^2 MR # [id number] Electronic Tester Hilda Arango Interpreting Physician Alma Kan Fellow Referring Nurse Cassie Morejon, COURT RECORDER Practitioner Interpreting Referring Physician Fellow Type of Study TTE procedure:2D Echocardiogram, M-Mode, Doppler, ColorDoppler. Procedure Date Date: 05/28/2021 Start: 10:54 AM [facility] Indic ations:Hypertension. History / Tech. Comments: [...] drug: Insulin Pen Needle * TechLite Pen [place] 31G X 8 MM Misc Generic drug: Insulin Pen Needle Vitamin D3 1.25 MG (47716 UT) Caps * This list has 2 medication(s) that are the same as other medications prescribed for you. Read thedirections carefully, and ask your doctor or other care provider to review them with you. Where to Get Your Medications These medications were sent to [facility]/pharmacy #[id number] - [address] - [phone] - F [phone] [place] [address] carvedilol 3.125 MG tablet cyclobenzaprine 10 MG [...] . Lamont Vasquez MD MD * Cassie Mroejon, CLINICAL SOCIOLOGIST - COURT RECORDER - 05/31/2021 1:47 PM EST Images from the original note were not included. 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 Transthoracic Echocardiography Report (TTE) Patient Name LAURA Date of Study 05/28/2021 PIOTR A Date of 1960 Gender Male Age 60 year(s) Race Room Number 0333 Height: 72 inch, 182.88 cm Corporate ID [id number] Weight: 231 pounds, 104.8 kg # Patient Acct [id number] BSA: 2.26 m^2 BMI: 31.33 # kg/m^2 MR # [id number] Electronic Tester Hilda Arango Interpreting Physician Alma Kan Fellow Referring Nurse Cassie Morejon, COURT RECORDER Practitioner Interpreting Referring Physician Fellow Type of Study TTE procedure:2D Echocardiogram, M-Mode, Doppler, ColorDoppler. Procedure Date Date: 05/28/2021 Start: 10:54 AM [facility] Indic ations:Hypertension. History / Tech. 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 Read thedirections carefully, and ask your doctor or other care provider to review them with you. Where to Get Your Medications These medications were sent to [facility]/pharmacy #[id number] - [place], [place] - [address] [facility] - [phone] - F [phone] [place] [address] carvedilol 3.125 MG tablet cyclobenzaprine 10 MG [...] applicable) KIRIT/ARB in CHF: NA Statin in [place]: NA ASA in [place]: NA Statin in CVA: NA Antiplatelet in CVA: NA Total time spent on discharge services: 40 minutes Including the following activities: Evaluation and Management of patient Discussion with patient and/or surrogate about current care plan Coordination with Case Management and/or Delivery Driver Coordination of care with Consultants (if applicable) Coordination of care with Receiving Facility Physician (if applicable) Completion of DME forms (if applicable) Preparation of Discharge Summary Preparation of Medication Reconciliation Preparation of Discharge Prescriptions Signed: Cassie Morejon APRN - COURT RECORDER, TYRESE FACULTY RESEARCH PHYSICIANGeremiasC 05/31/2021, 1:47 PM Associated attestation - Lamont Vasquez MD - 05/31/2021 3:17 PM EST Images from the original note were not included. I personally evaluated and examined the patient face to face in conjunction with the APC and agree with the management and disposition of the patient. 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 ([facility]) 05/27/2021 CHRIS (obstructive sleep apnea) 05/27/2021 Uncontrolled type 2 diabetes mellitus with hyperglycemia ([facility]) 07/29/2020 BPH with obstruction/lower urinary tract symptoms 07/25/2020 Incomplete emptying of bladder 07/25/2020 Additional Diagnoses: Diagnosis Date Cerebrovascular accident (CVA) ([facility]) Chronic pain Essential hypertension H/O heart artery stent 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 Transthoracic Echocardiography Report (TTE) Patient Name LAURA Date of Study 05/28/2021 PIOTR A Date of 1960 Gender Male Age 60 year(s) Race Room Number 0333 Height: 72 inch, 182.88 cm Corporate ID [id number] Weight: 231 pounds, 104.8 kg # Patient Acct [id number] BSA: 2.26 m^2 BMI: 31.33 # kg/m^2 MR # [id number] Electronic Tester Hilda Arango Interpreting Physician Alma Kan Fellow Referring Nurse Cassie Morejon, COURT RECORDER Practitioner Interpreting Referring Physician Fellow Type of Study TTE procedure:2D Echocardiogram, M-Mode, Doppler, ColorDoppler. Procedure Date Date: 05/28/2021 Start: 10:54 AM [facility] Indic ations:Hypertension. History / Tech. Comments: [...] 0.78 (L) 1.10 - 3.70 k/uL Absolute Collier # 0.87 0.10 - 1.20 k/uL Absolute [...] ms QTc Calculation (Bazett) 441 ms P [place] 27 degrees R [place] -15 degrees T [place] -82 degrees Glucose, Whole Blood Collection Time: [...] drug: Insulin Pen Needle * TechLite Pen [place] 31G X 8 MM Misc Generic drug: Insulin Pen Needle Vitamin D3 1.25 MG (15498 UT) Caps * This list has 2 medication(s) that are the same as other medications prescribed for you. Read thedirections carefully, and ask your doctor or other care provider to review them with you. Where to Get Your Medications These medications were sent to [facility]/pharmacy #[id number] - [place], [place] - [address] [place] [address] - P [phone] - F [phone] [place] [address] carvedilol 3.125 MG tablet cyclobenzaprine 10 MG [...] Lamont Vasquez MD MD documented in this [facility] [employer] Phone: [phone]) 267-759201-05-2022 Hospital Discharge instructions* Instructions* Kae Goodrich RN - 05/29/2021 Arrive at [facility] by 11:00 AM on 06/03/21 for the Heart Catheterization at 12:00 PM. Nothing to eat or drink after Midnight 1/10/22. Maintain Diaz catheter. Follow up with Dr. Ferrer (Urologist) next week. --A message was left with them to contact you for an appointment, if you do not hear from them by Thursday, call office at [phone]. * Attachments The following attachments cannot be sent through Care Everywhere. * CAD (Coronary Artery Disease): General Info (Albanian) documented in this [employer] Phone: 1(179) 614-585012-01-2021 History of Present illness Narrative* Gopi Mcelroy - 04/24/2021 8:00 PM EST Piotr arrived with on time for his Diagnostic Sleep Study. stayed for setup, and will return to pick Piotr up in morning. Setup, and polysomnogram progressed successfully. documented in this [employer] Phone: 1(554) 709-782902-01-2020 History general Narrative - Reported* Type Description [...] he was younger. Hospitalization History STROKE 06/2019 [facility] Other 02-01-2020 History general Narrative - Reported* [...] he was younger. 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 [...] without residual deficits documented in this encounter [employer] Phone: evaluation note* Diagnosis Uricaciduria Other nonspecific finding on examination of urine documented in this encounter [employer] Phone: evaluation noteNo assessment information available [facility] Work Phone: Evaluation note* Diagnosis Incomplete emptying of bladder Incomplete bladder emptying documented in this encounter [employer] Phone: evalotylmn note* Diagnosis Incomplete emptying of bladder Incomplete bladder emptying Prostate cancer screening Special screening for malignant neoplasm of prostate S/P angioplasty with stent Postsurgical percutaneous transluminal coronary angioplasty status Chronic systolic heart failure (HCC) Chronic systolic heart failure Shortness of breath Coronary artery disease involving [place] coronary artery of t[place] heart with angina pectoris with documented spasm (HCC) Intermittent claudication (HCC) Peripheral vascular disease, unspecified Primary hypertension Unspecified essential hypertension Mixed hyperlipidemia CHRIS (obstructive sleep apnea) Obstructive sleep apnea (adult) (pediatric) Stage 3 chronic kidney disease, unspecified whether stage 3a or 3b CKD (HCC) Primary hyperparathyroidism (HCC) Primary hyperparathyroidism Adenoma of left adrenal gland Benign neoplasm of adrenal gland documented in this encounter [employer] Phone: evaluation note* Diagnosis Incomplete bladder emptying documented in this encounter [employer] Phone: evalqftomj note* Diagnosis BPH with obstruction/lower urinary tract symptoms Hypertrophy of prostate with urinary obstruction and other lower urinary tract symptoms (LUTS) Incomplete emptying of bladder Incomplete bladder emptying Frequency of urination Urinary frequency Urgency of micturition Enlarged prostate with urinary obstruction Hypertrophy of prostate with urinary obstruction and other lower urinary tract symptoms (LUTS) documented in this encounter [employer] Phone: evaluation note* Diagnosis BPH with obstruction/lower urinary tract symptoms Hypertrophy of prostate with urinary obstruction and other lower urinary tract symptoms (LUTS) Incomplete emptying of bladder Incomplete bladder emptying Frequency of urination Urinary frequency Urgency of micturition Enlarged prostate with urinary obstruction Hypertrophy of prostate with urinary obstruction and other lower urinary tract symptoms (LUTS) documented in this encounter [employer] Phone: [email or web address] note* Diagnosis Preop cardiovascular exam Pre-operative cardiovascular examination ASHD (arteriosclerotic heart disease) Coronary atherosclerosis of unspecified type of vessel, [place] or graft S/P angioplasty with stent Postsurgical [...] tract symptoms (LUTS) documented in this encounter [employer] Phone: [email or web address] noteNo [employer] Other Evaluation note* Diagnosis BPH with obstruction/lower urinary tract symptoms- Primary Hypertrophy of prostate with urinary obstruction and other lower urinary tract symptoms (LUTS) documented in this encounter [employer] Phone: [email or web address] note* Diagnosis BPH with obstruction/lower urinary tract symptoms Hypertrophy of prostate with urinary obstruction and other lower urinary tract symptoms (LUTS) Post-operative state Other postprocedural status documented in this encounter [employer] [facility] Phone: evaluation note* Diagnosis Dyspnea on exertion Other dyspnea and respiratory abnormality documented in this encounter [employer] note* Diagnosis Screening PSA (prostate specific antigen) Special screening for malignant neoplasm of prostate Incomplete emptying of bladder Incomplete bladder emptying documented in this encounter [employer] note* Diagnosis Onset Date Resolution Status ASHD (arteriosclerotic heart disease) acute Cerebral atherosclerosis acu te Chronic kidney disease acute Chronic venous insufficiency of lower extremity acute Elevated cholesterol acute Hyperparathyroidism acute Hypertension acute Type 2 diabetes mellitus with hyperglycemia acute [facility] Work Phone: Evaluation note* Diagnosis BPH with obstruction/lower urinary tract symptoms- Primary Hypertrophy of prostate with urinary obstruction and other lower urinary tract symptoms (LUTS) documented in this encounter [facility]* Diagnosis Chronic diastolic heart failure (HCC) Chronic diastolic heart failure documented in this encounter [facility]* Diagnosis CHRIS (obstructive sleep apnea)- Primary Obstructive sleep apnea (adult) (pediatric) Abnormal stress test Other nonspecific abnormal cardiovascular system function study Chest pain Chest pain, unspecified 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, unspecified vessel or lesion type (HCC) Constipation, unspecified constipation type documented in this encounter [email or web address]* Diagnosis Onset Date Resolution Status [...] Type 2 diabetes mellitus with hyperglycemia acute [facility] Work Phone: Evaluation note* Diagnosis Critical limb [...] lower extremities (HCC) documented in this encounter [email or web address] note* Diagnosis Critical limb ischemia of both lower extremities (HCC) Bilateral lower leg cellulitis- Primary Cellulitis and abscess of leg, except foot Pain in left lower leg Critical limb ischemia of both lower extremities (HCC) documented in this encounter [facility]* Diagnosis Acute on chronic diastolic (congestive) heart failure (HCC) ASHD (arteriosclerotic heart disease) Coronary atherosclerosis of unspecified type of vessel, [place] or graft Essential hypertension Unspecified essential hypertension Mixed hyperlipidemia PAD (peripheral artery disease) ([facility]) Unspecified disorders of arteries and arterioles CHRIS (obstructive sleep apnea) Obstructive sleep apnea (adult) (pediatric) Obesity, unspecified class, unspecified obesity type, unspecified whether serious comorbidity present [facility] Diagnosis Dermatophytosis of nail- Primary Dystrophic nail Other specified disease of nail Type II diabetes mellitus with peripheral circulatory disorder ([facility]) Type II or unspecified type diabetes mellitus with peripheral circulatory disorders, not stated as uncontrolled Diabetic polyneuropathy associated with type 2 diabetes mellitus ([facility]) [facility] Diagnosis Critical limb ischemia of both lower extremities (HCC) [facility]* Diagnosis Cellulitis of left foot- Primary Type II diabetes mellitus with peripheral circulatory disorder ([facility]) Type II or unspecified type diabetes mellitus with peripheral circulatory disorders, not stated as uncontrolled Diabetic polyneuropathy associated with type 2 diabetes mellitus ([facility]) Skin ulcer of midfoot region, left, limited to breakdown of skin ([facility]) documented in this encounter [facility]* Diagnosis Acute on chronic diastolic (congestive) heart failure (HCC) ASHD (arteriosclerotic heart disease) Coronary atherosclerosis of unspecified type of vessel, [place] or graft S/P angioplasty with stent Postsurgical [...] diastolic heart failure documented in this encounter [facility] note* Diagnosis Cellulitis of left foot- Primary Type II diabetes mellitus with peripheral circulatory disorder ([facility]) Type II or unspecified type diabetes mellitus [...] diabetes mellitus (CMS/HCC) documented in this encounter [facility]* Diagnosis Gangrene of toe of both feet (HCC)- Primary Eschar of toe Unspecified local infection of skin and subcutaneous tissue Critical limb ischemia of both lower extremities (HCC) [facility] Diagnosis Acute renal failure superimposed on chronic kidney disease, unspecified acute renal failure type, unspecified CKD stage- Primary Dehydration [facility] Diagnosis Chronic ulcer of great toe of right foot with fat layer exposed (HCC)- Primary Eschar of toe Unspecified local infection of skin and subcutaneous tissue Critical limb ischemia of both lower extremities Gangrene of toe of both feet (HCC) [facility] Diagnosis Eschar of toe Unspecified local infection of skin and subcutaneous tissue Chronic ulcer of great toe of right foot with fat layer exposed (HCC) [facility] Diagnosis Chronic ulcer of great toe of right foot with fat layer exposed (HCC)- Primary Critical limb ischemia of both lower extremities [facility] Diagnosis Chronic ulcer of great toe of right foot with fat layer exposed (HCC) [facility] Diagnosis Chronic ulcer of great toe of right foot with fat layer exposed (HCC)- Primary Diabetic ulcer of right great toe (HCC) Type II or unspecified type diabetes mellitus with other specified manifestations, not stated as uncontrolled [facility]* Diagnosis Screening PSA (prostate specific antigen) Special screening for malignant neoplasm of prostate [facility]* Diagnosis Acute on chronic diastolic (congestive) heart failure (HCC) ASHD (arteriosclerotic heart disease) Coronary atherosclerosis of unspecified type of vessel, [place] or graft S/P angioplasty with stent Postsurgical percutaneous transluminal coronary angioplasty status Essential hypertension Unspecified essential hypertension Mixed hyperlipidemia PAD (peripheral artery disease) Unspecified disorders of arteries and arterioles CHRIS (obstructive sleep apnea) Obstructive sleep apnea (adult) (pediatric) Stage 3a chronic kidney disease ([facility]) [facility] Diagnosis Chronic ulcer of great toe of right foot with fat layer exposed (HCC) Diabetic ulcer of right great toe (HCC) Type II or unspecified type diabetes mellitus with other specified manifestations, not stated as uncontrolled [facility]* Diagnosis Osteomyelitis of great toe of right foot (HCC)- Primary Critical limb ischemia of both lower extremities (HCC) Infection of toe Unspecified local infection of skin and subcutaneous tissue Chronic ulcer of great toe of right foot with fat layer exposed (HCC) documented [facility]* Diagnosis Dermatophytosis of nail- Primary Dystrophic nail Other specified disease of nail Type II diabetes mellitus with peripheral circulatory disorder (HCC) Type II or unspecified type diabetes mellitus with peripheral circulatory disorders, not stated as uncontrolled Diabetic polyneuropathy associated with type 2 diabetes mellitus ([facility]) [facility] Diagnosis Osteomyelitis of great toe of right foot (HCC)- Primary Acute osteomyelitis of right foot (HCC) Acute osteomyelitis, ankle and foot Open wound of toe(s) Non-healing open wound of toe Open wound of toe(s), complicated [facility]* Diagnosis Orthopedic aftercare- Primary Unspecified orthopedic aftercare History of amputation of right great toe documented in this [facility]* Diagnosis Orthopedic aftercare- Primary Unspecified orthopedic aftercare History of amputation of right great toe [facility] Diagnosis Critical limb ischemia of both lower extremities (HCC)- Primary Eschar of toe Unspecified local infection of skin and subcutaneous tissue Gangrene of toe of both feet ([facility]) documented in this encounter [facility]* Diagnosis Onset Date Resolution Status [...] 2024 1:53pm Wellness examination noneactive 2024 1:53pm [facility] Work Phone: reason for referral (narrative)No reason for referral information available[facility] Work Phone: Revdt[employer] for visit Narrative* Auth/Cert Specialty Diagnoses / Procedures Referred By Contac t Referred To Contact Diagnoses Hypotension Benign essential HTN Lamont Vasquez MD [address] [facility] [address] [place] [address] [facility] [address] [place] [address] Referral ID Status Reason Start Date Expiration Date Visits Re quested Visits Authorized [id number] 1 1 [facility] Work Phone: reason for visit Narrative* Imaging (Routine) - Not Required - RTA Specialty Diagnoses / Procedures Referred By Contdimitri t Referred To Contact Radiology Diagnoses Chronic ulcer of great toe of right foot with fat layer exposed (HCC) Diabetic ulcer of right great toe (HCC) Procedures MRI FOOT RIGHT WO CONTRAST Quincy Penn DPM [address] [place] [address] [address] [address] Phone: tel: fax: Referral ID Status Reason Start Date Expiration Date V isits Requested Visits Authorized [id number] Not Required - RTA 10/04/2024 10/04/2025 1 1 [facility] [employer] InteractiveReason for visit Narrative* Auth/Cert Specialty Diagnoses / Procedures Referred By Contdimitri t Referred To Contact Diagnoses Acute osteomyelitis of right foot (HCC) osteomyelitis with complicated wound right foot and hallux Procedures KS AMPUTATION TOE METATARSOPHALANGEAL JOINT TOE AMPUTATION-big toe right, flap closure of right foot Quincy Penn DPM [address] [facility] [address] [place] [address] Phone: tel: fax: [facility] [employer] [address] [place] [address] Referral ID Status Reason Start Date Expiration Date Visits Re quested Visits Authorized [id number] 1 1 [email or web address] Assessments Diagnosis BPH with obstruction/lower urinary tract [...] Agents on File Name Relationship Healthcare Agent [facility] p Communication Mary Kerr Spouse Primary [...] Mary Baldetti Spouse Primary Decision Maker [phone] (Home) Jeff Baldetti Child Secondary Decision Make r Healthcare Agents on File Name Relationship Healthcare Agent Relationshi p Communication Mary Baldetti Spouse Primary Decision Maker [phone] (Home) Jeff Baldetti Child Secondary Decision Make r Healthcare Agents on File Name Relationship Healthcare Agent Relationshi p Communication Mary Baldetti Spouse Primary Decision Maker [phone] (Home) Jeff Baldetti Child Secondary Decision Make r Healthcare Agents on File Name Relationship Healthcare Agent Relationshi p Communication Mary Baldetti Spouse Primary Decision Maker [phone] (Home) Jeff Baldetti Child Secondary Decision Make r Healthcare Agents on File Name Relationship Healthcare Agent Relationshi p Communication Mary Baldetti Spouse Primary Decision Maker Jeff Baldetti Child Secondary Decision Make r Healthcare Agents on File Name Relationship Healthcare Agent Relationshi p Communication Mary Baldetti Spouse Primary Decision Maker [phone] (Home) Jeff Baldetti Child Secondary Decision Make r Healthcare Agents on File Name Relationship Healthcare Agent Relationshi p Communication Mary Baldetti Spouse Primary Decision Maker [phone] (Home) Jeff Baldetti Child Secondary Decision Make r Healthcare Agents on File Name Relationship Healthcare Agent Relationshi p Communication Mary Baldetti Spouse Primary Decision Maker [phone] (Home) Jeff Baldetti Child Secondary Decision Make [...] Documents on File Type Date Recorded Patient Manager Data [employer] Expl anation [employer] Directive 02/25/2024 4:17 PM [...] Documents on File Type Date Recorded Patient Manager Data Ware[employer]ousing Expl anation [employer] Directive 02/25/2024 4:17 PM [...] Mary Baldetti Spouse Primary Decision Maker [phone] (Home) Jeff Baldetti Child Secondary Decision Make r Stephn Baldetti Child Supplemental (Ot her) Decision Maker Healthcare Agents on File Name Relationship Healthcare Agent Relationship Communication Mary Baldetti Spouse Primary Decision Maker [phone] (Home) Jeff Baldetti Child Secondary Decision Make r Stephn Baldetti Child Supplemental (Ot her) Decision Maker Healthcare Agents on File Name Relationship Healthcare Agent Relationship Communication Mary Baldetti Spouse Primary Decision Maker [phone] (Home) Jeff Baldetti Child Secondary Decision Make [...] Mary Baldetti Spouse Primary Decision Maker [phone] (Home) Jeff Baldetti Child Secondary Decision Make [...] File Name Relationship Healthcare Agent Relationship Communication Mayr Baldetti Spouse Primary Decision Maker Jeff Mccarthydetti [...] None CHG CT SCAN,ABDOMENT AND PELVIS,W/O CONTRAST 92248 - CHG CT SCAN,ABDOMENT AND PELVIS,W/O CONTRAST Arabella Dyer PA-C [address] [facility] [address] [place] [address] Referral ID Status Reason Start Date Expiration Date Visits Re quested Visits Authorized [id number] Closed 09/09/2021 10/24/2021 1 1 Specialty Diagnoses / Procedures Referred By Contac t Referred To Contact Radiology Diagnoses Incomplete bladder emptying Procedures US RENAL COMPLETE Arabella Dyer PA-C [address] [place] [address] [address] [place] [address] Referral ID Status Reason Start Date Expiration Date Visits Re quested Visits Authorized [id number] Closed 05/20/2022 05/20/2023 1 1 Specialty Diagnoses / Procedures Referred By Contac t Referred To Contact Cardiology Diagnoses BPH with obstruction/lower urinary tract symptoms Incomplete emptying of bladder Frequency of urination Urgency of micturition Procedures EKG 12 Lead Akira Ferrer MD [address] [facility], [address] [place] [address] Referral ID Status Reason Start Date Expiration Date Visits Re quested Visits Authorized [id number] Open 05/30/2022 05/30/2023 1 1 Specialty Diagnoses [...] test, lexiscan CHG MYOCARDIAL SPECT MULTIPLE STUDIES 15556 - CHG MYOCARDIAL SPECT MULTIPLE STUDIES Alma Kan MD [address] [place] [phone] Referral ID Status Reason Start Date Expiration Date Visits Re quested Visits Authorized [id number] Closed 07/10/2022 08/24/2022 1 1 Specialty Diagnoses [...] Echo 2D w doppler w color complete KS ECHO TTHRC R-T 2D W/WOM-MODE COMPL SPEC&COLR D 70078 - KS ECHO TTHRC R-T 2D W/WOM-MODE COMPL SPEC&COLR D Alma Kan MD [address] [facility] [place] [address] Referral ID Status Reason Start Date Expiration Date V isits Requested Visits Authorized [id number] Authorized 07/10/2022 07/04/2023 3 3 Specialty Diagnoses / Procedures Referred By Bj fontenot Referred To Contact Thoracic Surgery / Cardiothoracic Surgery Diagnoses 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, unspecified vessel or lesion type ([facility]) [place] [address] [place] [address] Adrian Delgadillo MD [address] [facility] [address] [facility] [place] [address] Referral ID Status Reason Start Date Expiration Date V isits Requested Visits Authorized [id number] Open Specialty Services Required 12/21/2023 12/20/2024 1 1 Scheduling Instructions [facility] [place], Cardiovascular Surgery Comments The patient can be [...] and content) DATE CREATED AUTHOR 08/30/2020 Baltazar Moody [facility] DATE CREATED AUTHOR AUTHOR'S ORGANIZ ATION 06/24/2021 Priscilla Noriega spiaziza DATE CREATED AUTHOR AUTHOR'S ORGANIZ ATION 11/02/2022 [facility] DATE CREATED AUTHOR AUTHOR'S ORGANIZ ATION 11/14/2022 [facility] DATE CREATED AUTHOR AUTHOR'S ORGANIZ ATION 10/03/2024 [facility] DATE CREATED AUTHOR AUTHOR'S ORGANIZ ATION 10/23/2024 [facility] DATE CREATED AUTHOR AUTHOR'S ORGANIZ ATION 11/12/2024 [facility] EP[facility] DATE CREATED AUTHOR AUTHOR'S ORGANIZ ATION 12/30/2024 [facility] Reason for Visit (unrecogniz ed section and content) Specialty Diagnoses / Procedures Referred By Contac t Referred To Contact Sleep Center Diagnoses Obstructive sleep apnea (adult) (pediatric) Procedures KS POLYSOM 6/>YRS SLEEP 4/> ADDL INGA ATTND [facility] [address] [place] [address] [facility] [address] [place] [address] Referral ID Status Reason Start Date Expiration Date V isits Requested Visits Authorized [id number] Authorized 04/23/2021 04/24/2022 1 1 Specialty Diagnoses / Procedures Referred By Contac t Referred To Contact Radiology Diagnoses Uricaciduria R82.998 (ICD-10-CM) - Uricaciduria Procedures CT ABDOMEN PELVIS WO CONTRAST Additional Contrast? None CHG CT SCAN,ABDOMENT AND PELVIS,W/O CONTRAST 16727 - CHG CT SCAN,ABDOMENT AND PELVIS,W/O CONTRAST Arabella Dyer PA-C [address] [facility] [address] [place] [address] Referral ID Status Reason Start Date Expiration Date Visits Re quested Visits Authorized [id number] Closed 09/09/2021 10/24/2021 1 1 Specialty Diagnoses / Procedures Referred By Contac t Referred To Contact Cardiology Diagnoses Abnormal stress test Procedures Referral to Cardiac Cath Alma Kan MD [address] [place] [address] [place] [address] Referral ID Status Reason Start Date Expiration Date Visits Re quested Visits Authorized [id number] Closed 05/29/2021 11/24/2021 1 1 Specialty Diagnoses / Procedures Referred By Contac t Referred To Contact Radiology Diagnoses Incomplete bladder emptying Procedures US RENAL COMPLETE Arabella Dyer PA-C [address] [facility] [place] [address] Referral ID Status Reason Start Date Expiration Date Visits Re quested Visits Authorized [id number] Closed 05/20/2022 05/20/2023 1 1 Specialty Diagnoses [...] test, lexiscan CHG MYOCARDIAL SPECT MULTIPLE STUDIES 13141 - CHG MYOCARDIAL SPECT MULTIPLE STUDIES Alma Kan MD [address] [facility] [place] [address] Referral ID Status Reason Start Date Expiration Date Visits Re quested Visits Authorized [id number] Closed 07/10/2022 08/24/2022 1 1 Specialty Diagnoses [...] Echo 2D w doppler w color complete KS ECHO TTHRC R-T 2D W/WOM-MODE COMPL SPEC&COLR D 28658 - KS ECHO TTHRC R-T 2D W/WOM-MODE COMPL SPEC&COLR D Alma Kan MD [address] [place] [phone] Referral ID Status Reason Start Date Expiration Date V isits Requested Visits Authorized [id number] Authorized 07/10/2022 07/04/2023 3 3 Specialty Diagnoses / Procedures [facility] Referred To Contact Diagnoses 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, LOWER URINARY TRACT SYMPTOMS Procedures KS LASER VAPORIZATION OF PROSTATE FOR URINE FLOW CYSTOSCOPY TRANSURETHRAL RESECTION PROSTATE LASER-PVP GREENLIGHT Akira Ferrer MD [address] [facility], [address] [place] [address] [facility] [address] [place] [address] Referral ID Status Reason Start Date Expiration Date Visits Re quested Visits Authorized [id number] 1 1 Specialty Diagnoses / Procedures Referred By Contac t Referred To Contact Radiology Diagnoses Primary hyperparathyroidism (HCC) Hypercalcemia Essential (primary) hypertension Chronic kidney disease, stage II (mild) Procedures NM PARATHYORID W SPECT Iboaya, Benahili U, DO [address] [place] [address] Referral ID Status Reason Start Date Expiration Date Visits Re quested Visits Authorized [id number] Closed 01/15/2023 03/01/2023 1 1 Specialty Diagnoses / Procedures Referred By Contac t Referred To Contact Diagnoses BPH with obstruction/lower urinary tract symptoms BPH with obstruction/lower urinary tract symptoms [N40.1, N13.8] Procedures KS LASER VAPORIZATION OF PROSTATE FOR URINE FLOW CYSTOSCOPY TRANSURETHRAL RESECTION PROSTATE LASER-PVP Akira Nobles MD [address] [facility], [address] [place] [address] [facility] [address] [place] [address] Referral ID Status Reason Start Date Expiration Date Visits Re quested Visits Authorized [id number] 1 1 Specialty Diagnoses / Procedures Referred By Contac t Referred To Contact Diagnoses Abnormal stress test Chest pain CAD (coronary artery disease) Abnormal stress test [R94.39] Chest pain [R07.9] CAD (coronary artery disease) [I25.10] Procedures KS CATH PLMT L HRT & ARTS W/NJX & ANGIO IMG S&I Left heart cath / [place] [address] [facility] [address] [place] [address] [facility] [address] [place] [address] Referral ID Status Reason Start Date Expiration Date Visits Re quested Visits Authorized [id number] 1 1 Reason Comments Leg Swelling Both [...] venous insufficiency Fred Villegas MD [address] [place] [address] [facility] [address] [place] [address] Referral ID Status Reason Start Date Expiration Date Visits Re quested Visits Authorized [id number] 1 1 Reason Comments Foot Pain C/O [...] lower extremity arteries left Floyd Vee MD [address] [place] [address] [address] [place] [address] Referral ID Status Reason Start Date Expiration Date Visits Re quested Visits Authorized [id number] Open 03/16/2024 03/16/2025 1 1 Reason Comments [...] Active Jorge Pritchett DO Attending Provider Active Bulk Tank Driver Relationship Specialty Start Date End Date Jorge PritchettDO [address] [place] [address] PCP - General Internal Medicine 04/17/21 Bulk Tank Driver Relationship Specialty Start Date End Date Jorge Pritchett DO [address] [place] [address] PCP - General Internal Medicine 04/17/21 Bulk Tank Driver Relationship Specialty Start Date End Date YarelyJorge DO [address] [place] [address] PCP - General Internal Medicine 04/17/21 Bulk Tank Driver Relationship Specialty Start Date End Date Jorge Pritchett, DO [address] [place] [address] PCP - General Internal Medicine 04/17/21 Bulk Tank Driver Relationship Specialty Start Date End Date Jorge Pritchett, DO [address] [place] [address] PCP - General Internal Medicine 04/17/21 Bulk Tank Driver Relationship Specialty Start Date End Date Jorge Pritchett, DO [address] [place] [address] PCP - General Internal Medicine 04/17/21 Bulk Tank Driver Relationship Specialty Start Date End Date Jorge Pritchett, DO [address] [place] [address] PCP - General Internal Medicine 04/17/21 Bulk Tank Driver Relationship Specialty Start Date End Date Jorge Pritchett, DO [address] [place] [address] PCP - General Internal Medicine 04/17/21 Bulk Tank Driver Relationship Specialty Start Date End Date Jorge Pritchett, DO [address] [place] [address] PCP - General Internal Medicine 04/17/21 Bulk Tank Driver Relationship Specialty Start Date End Date Jorge Pritchett, DO [address] [place] [address] PCP - General Internal Medicine 04/17/21 Bulk Tank Driver Relationship Specialty Start Date End Date Jorge Pritchett, DO [address] [place] [address] PCP - General Internal Medicine 04/17/21 Bulk Tank Driver Relationship Specialty Start Date End Date Jorge Pritchett, DO [address] [place] [address] PCP - General Internal Medicine 04/17/21 Bulk Tank Driver Relationship Specialty Start Date End Date Jorge Pritchett, DO [address] [facility] [place] [address] PCP - General Internal Medicine 04/17/21 Bulk Tank Driver Relationship Specialty Start Date End Date Jorge Pritchett, DO [address] [facility] [place] [address] PCP - General Internal Medicine 04/17/21 Bulk Tank Driver Relationship Specialty Start Date End Date Jorge Pritchett, DO [address] [facility] [place] [address] PCP - General Internal Medicine 04/17/21 Bulk Tank Driver Relationship Specialty Start Date End Date Jorge Pritchett, DO [address] [facility] [place] [address] PCP - General Internal Medicine 04/17/21 Bulk Tank Driver Relationship Specialty Start Date End Date Jorge Pritchett, DO [address] [facility] [place] [address] PCP - General Internal Medicine 04/17/21 Bulk Tank Driver Relationship Specialty Start Date End Date Jorge Pritchett, DO [address] [facility] [place] [address] PCP - General Internal Medicine 04/17/21 Bulk Tank Driver Relationship Specialty Start Date End Date Jorge Pritchett, DO [address] [facility] [place] [address] PCP - General Internal Medicine 04/17/21 Bulk Tank Driver Relationship Specialty Start Date End Date Jorge Pritchett, DO [address] [facility] [place] [address] PCP - General Internal Medicine 04/17/21 Team Status: Inactive Member Role Status Dates Pia Douglass , MEEK-C Primary Care Provider Active Alma Kan MD Attending Provider Active Bulk Tank Driver Relationship Specialty Start Date End Date Jorge Pritchett, DO [address] [facility] [place] [address] PCP - General Internal Medicine 04/17/21 Bulk Tank Driver Relationship Specialty Start Date End Date Jorge Pritchett, DO [address] [facility] [place] [address] PCP - General Internal Medicine 04/17/21 Bulk Tank Driver Relationship Specialty Start Date End Date Jorge Pritchett, DO [address] [facility] [place] [address] PCP - General Internal Medicine 04/17/21 Bulk Tank Driver Relationship Specialty Start Date End Date Jorge Pritchett, DO [address] [facility] [place] [address] PCP - General Internal Medicine 04/17/21 Bulk Tank Driver Relationship Specialty Start Date End Date Jorge Pritchett, DO [address] [facility] [place] [address] PCP - General Internal Medicine 04/17/21 Bulk Tank Driver Relationship Specialty Start Date End Date Jorge Pritchett, DO [address] [facility] [place] [address] PCP - General Internal Medicine 04/17/21 Bulk Tank Driver Relationship Specialty Start Date End Date Jorge Pritchett, DO [address] [facility] [place] [address] PCP - General Internal Medicine 04/17/21 Bulk Tank Driver Relationship Specialty Start Date End Date Jorge Pritchett, DO [address] [facility] [place] [address] PCP - General Internal Medicine 04/17/21 Bulk Tank Driver Relationship Specialty Start Date End Date Jorge Pritchett, DO [address] [place] [address] PCP - General Internal Medicine 04/17/21 Bulk Tank Driver Relationship Specialty Start Date End Date Jorge Pritchett, DO [address] [place] [address] PCP - General Internal Medicine 04/17/21 Bulk Tank Driver Relationship Specialty Start Date End Date Jorge Pritchett, DO [address] [place] [address] PCP - General Internal Medicine 04/17/21 Bulk Tank Driver Relationship Specialty Start Date End Date Jorge Pritchett, DO [address] [place] [address] PCP - General Internal Medicine 04/17/21 Bulk Tank Driver Relationship Specialty Start Date End Date Jorge Pritchett, DO [address] [place] [address] PCP - General Internal Medicine 04/17/21 Bulk Tank Driver Relationship Specialty Start Date End Date Jorge Pritchett, DO [address] [place] [address] PCP - General Internal Medicine 04/17/21 Bulk Tank Driver Relationship Specialty Start Date End Date Jorge Pritchett, DO [address] [place] [address] PCP - General Internal Medicine 04/17/21 Bulk Tank Driver Relationship Specialty Start Date End Date Jorge Pritchett, DO [address] [place] [address] PCP - General Internal Medicine 04/17/21 Bulk Tank Driver Relationship Specialty Start Date End Date Jorge Pritchett, DO [address] [place] [address] PCP - General Internal Medicine 04/17/21 Bulk Tank Driver Relationship Specialty Start Date End Date Yarely Jorge, DO [address] [place] [facility] [place] [address] PCP - General Internal Medicine 04/17/21 Bulk Tank Driver Relationship Specialty Start Date End Date Jorge Pritchett, DO [address] [place] [facility] [place] [address] PCP - General Internal Medicine 04/17/21 Bulk Tank Driver Relationship Specialty Start Date End Date Jorge Pritchett, DO [address] [place] [facility] [place] [address] PCP - General Internal Medicine 04/17/21 Bulk Tank Driver Relationship Specialty Start Date End Date Jorge Pritchett DO [address] [place] [facility] [place] [address] PCP - General Internal Medicine 04/17/21 Bulk Tank Driver Relationship Specialty Start Date End Date Jorge Pritchett DO [address] [place] [facility] [place] [address] PCP - General Internal Medicine 04/17/21 Bulk Tank Driver Relationship Specialty Start Date End Date Jorge Pritchett DO [address] [place] [facility] [place] [address] PCP - General Internal Medicine 04/17/21 Bulk Tank Driver Relationship Specialty Start Date End Date Jorge Pritchett DO [address] [place] [facility] [place] [address] PCP - General Internal Medicine 04/17/21 Bulk Tank Driver Relationship Specialty Start Date End Date Jorge Pritchett DO [address] [facility] [place] [address] PCP - General Internal Medicine 04/17/21 Bulk Tank Driver Relationship Specialty Start Date End Date Jorge Pritchett DO [address] [facility] [place] [address] PCP - General Internal Medicine 04/17/21 Bulk Tank Driver Relationship Specialty Start Date End Date Jorge Pritchett DO [address] [place] [facility] [place] [address] PCP - General Internal Medicine 04/17/21 Bulk Tank Driver Relationship Specialty Start Date End Date Jorge Pritchett DO [address] [place] [facility] [place] [address] PCP - General Internal Medicine 04/17/21 Team Status: Inactive Member Role Status Dates Jorge Pritchett DO Primary Care Provide r, Attending Provider Active Start: November 10, 2023 End: November 10, 2023 Team Status: Inactive Member Role Status Dates Jorge Pritchett DO Primary Care Provide r, Attending Provider Active Start: February 03, 2024 End: February 03, 2024 Bulk Tank Driver Relationship Specialty Start Date End Date Jorge Pritchett DO [address] [facility] [place] [address] PCP - General Internal Medicine 04/17/21 Bulk Tank Driver Relationship Specialty Start Date End Date Jorge Pritchett DO [address] [place] [facility] [place] [address] PCP - General Internal Medicine 04/17/21 Bulk Tank Driver Relationship Specialty Start Date End Date Jorge Pritchett DO [address] [place] [facility] [place] [address] PCP - General Internal Medicine 04/17/21 Bulk Tank Driver Relationship Specialty Start Date End Date Jorge Pritchett MD [address] [facility] [place] [address] PCP - General Internal Medicine 02/13/23 Bulk Tank Driver Relationship Specialty Start Date End Date Jorge Pritchett MD [address] [place] [facility] [place] [address] PCP - General Internal Medicine 02/13/23 Bulk Tank Driver Relationship Specialty Start Date End Date Jorge Pritchett DO [address] [place] [facility] [place] [address] PCP - General Internal Medicine 04/17/21 Bulk Tank Driver Relationship Specialty Start Date End Date Jorge Pritchett DO [address] [place] [facility] [place] [address] PCP - General Internal Medicine 04/17/21 Bulk Tank Driver Relationship Specialty Start Date End Date Jorge Pritchett MD [address] [place] [facility] [place] [address] PCP - General Internal Medicine 02/13/23 Bulk Tank Driver Relationship Specialty Start Date End Date Jorge Pritchett MD [address] [place] [facility] [place] [address] PCP - General Internal Medicine 02/13/23 Bulk Tank Driver Relationship Specialty Start Date End Date Jorge Pritchett DO [address] [place] [facility] [place] [address] PCP - General Internal Medicine 04/17/21 Bulk Tank Driver Relationship Specialty Start Date End Date Jorge Pritchett MD [address] [place] [facility] [place] [address] PCP - General Internal Medicine 02/13/23 Bulk Tank Driver Relationship Specialty Start Date End Date Jorge Pritchett DO [address] [place] [facility] [place] [address] PCP - General Internal Medicine 04/17/21 Bulk Tank Driver Relationship Specialty Start Date End Date Jorge Pritchett DO [address] [place] [facility] [place] [address] PCP - General Internal Medicine 04/17/21 Bulk Tank Driver Relationship Specialty Start Date End Date Jorge Pritchett DO [address] [place] [facility] [place] [address] PCP - General Internal Medicine 04/17/21 [...] July 12, 2024 End: July 12, 2024 Bulk Tank Driver Relationship Specialty Start Date End Date Jorge Pritchett DO [address] [place] [facility] [place] [address] PCP - General Internal Medicine 04/17/21 Bulk Tank Driver Relationship Specialty Start Date End Date Jorge Pritchett DO [address] [place] [facility] [place] [address] PCP - General Internal Medicine 04/17/21 Bulk Tank Driver Relationship Specialty Start Date End Date Yarely Jorge [address] [place] [facility] [place] [address] PCP - General Internal Medicine 04/17/21 Bulk Tank Driver Relationship Specialty Start Date End Date Jorge Pritchett DO [address] [place] [facility] [place] [address] PCP - General Internal Medicine 04/17/21 Bulk Tank Driver Relationship Specialty Start Date End Date Jorge Pritchett DO [address] [place] [facility] [place] [address] PCP - General Internal Medicine 04/17/21 Bulk Tank Driver Relationship Specialty Start Date End Date Jorge Pritchett DO [address] [place] [facility] [place] [address] PCP - General Internal Medicine 04/17/21 Bulk Tank Driver Relationship Specialty Start Date End Date Jorge Pritchett DO [address] [place] [facility] [place] [address] PCP - General Internal Medicine 04/17/21 Team [...] September 21, 2024 End: September 21, 2024 Bulk Tank Driver Relationship Specialty Start Date End Date Jorge Pritchett DO [address] [place] [facility] [place] [address] PCP - General Internal Medicine 04/17/21 Bulk Tank Driver Relationship Specialty Start Date End Date Jorge Pritchett DO [address] [place] [facility] [place] [address] PCP - General Internal Medicine 04/17/21 Bulk Tank Driver Relationship Specialty Start Date End Date Jorge Pritchett DO [address] [place] [facility] [place] [address] PCP - General Internal Medicine 04/17/21 Bulk Tank Driver Relationship Specialty Start Date End Date Jorge Pritchett DO [address] [place] [facility] [place] [address] PCP - General Internal Medicine 04/17/21 Bulk Tank Driver Relationship Specialty Start Date End Date Jorge Pritchett DO [address] [place] [facility] [place] [address] PCP - General Internal Medicine 04/17/21 Bulk Tank Driver Relationship Specialty Start Date End Date Jorge Pritchett DO [address] [place] [facility] [place] [address] PCP - General Internal Medicine 04/17/21 Bulk Tank Driver Relationship Specialty Start Date End Date Jorge Pritchett DO [address] [place] [facility] [place] [address] PCP - General Internal Medicine 02/13/23 Bulk Tank Driver Relationship Specialty Start Date End Date Jorge Pritchett DO [address] [place] [facility] [place] [address] PCP - General Internal Medicine 02/13/23 Bulk Tank Driver Relationship Specialty Start Date End Date Jorge Pritchett DO [address] [place] [address] PCP - General Internal Medicine 04/17/21 Bulk Tank Driver Relationship Specialty Start Date End Date Joreg Pritchett DO [address] [place] [facility] [place] [address] PCP - General Internal Medicine 04/17/21 Bulk Tank Driver Relationship Specialty Start Date End Date Jorge Pritchett DO [address] [place] [address] PCP - General Internal Medicine 04/17/21 Bulk Tank Driver Relationship Specialty Start Date End Date Jorge Pritchett DO [address] [place] [address] PCP - General Internal Medicine [...] 100 mL IVPB (COMPLETED) 2,000 mg, IntraVENous, REFERENCE AND INSTRUCTION LIBRARIAN TO O.R., 1 dose, On Thu07/15/22 at 1115, Antimicrobial Indications: Surgical Prophylaxis, Administer within 1 hour prior to incision. Repeat in 2 hours after initial dose if still intra-op., Pre-op (day of surgery) 1247 (New Bag - Prov ider: Radha Oliva RN)1300 (Given - Provider: Celeste Valadez APRN - SEMICONDUCTOR PROCESSING GROUP LEADER)1317 (Due: Stopped - Provider: Radha Oliva [...] (Paused - Provider: Celeste Valadez APRN - SEMICONDUCTOR PROCESSING GROUP LEADER - Comment: Switch to gravity)1249 (Restarted - Provider: Celeste Valadez APRN - SEMICONDUCTOR PROCESSING GROUP LEADER)1339 (Stopped - Provider: Celeste Valadez APRN - SEMICONDUCTOR PROCESSING GROUP LEADER)1500 (Stopped - Provider: Julissa Campbell RN) [...] 0.9% 100 mL IVPB 3,000 mg, IntraVENous, REFERENCE AND INSTRUCTION LIBRARIAN TO O.R., 1 dose, On Thu11/03/23 at [...] Carvajal RN) 821 (Given - Provider: Citlali Andesr RN) insulin glargine (LANTUS) injection vial 20 [...] sodium chloride 0.9 % 100 mL IVPB ([id number]) 1,000 mg, IntraVENous, at 33.3 mL/hr, Administer [...] Albert RN) 08 (Given - Provider: Citlali nAders RN)2119 (Given - Provider: Sloan Arango, RN) [...] Provider: Helene Horan RN)1832 (Stopped - Provider: Carmne Du, MIGUE) Continuous Medication Order 07/21/2024 07/22/2024 07/23/2024 0.9 % sodium chloride infusion IntraVENous, at 75 mL/hr, CONTINUOUS, Starting on Thu07/22/24 at 1830 1935 (New Bag - Provider: Carmen Du, MIGUE) 0853 (Stopped - Provider: Redd Ortiz RN) Scheduled Medication Order 11/09/2024 11/10/2024 11/11/2024 ceFAZolin (ANCEF) 2000 mg in 20 mL IV syringe (COMPLETED) 2,000 mg, IntraVENous, REFERENCE AND INSTRUCTION LIBRARIAN TO O.R., 1 dose, On Thu11/11/24 at [...] (day of surgery) BUPivacaine-EPINEPHrine PF (MARCAINE-w/EPINEPHrine) 0.5% -[id number] injection (CANCELED) PRN, Starting on Thu11/11/24 at [...] BE BASED ON THE PRIMARY CLINICAL RECORDS. [facility]. provides no warranty or guarantee of the accuracy or completeness of information in this document.
--- NOTE | 2025-02-03 11:54 | SWNOTE1 ---
DINESH completed HENS 700 online. Plan is for possible discharge tomorrow to [place]. DINESH faxed physician note from today along with PT/OT, labs, vitals, and med list from today to [facility] at [place].
--- NOTE | 2025-02-03 12:06 | PT.DAILY ---
Physical Therapy Daily Note PT Daily Note/Assess Start: 01/31/25 10:36 Freq: Status: Active Protocol: Document 02/03/25 11:51 [id number] (Rec: 02/03/25 12:06 [id number] No Response) Physical Therapy Daily Note/Assessment Time In/Time Out Time In 10:14 Time Out 10:45 Pain In Pain Level 3 Pain Out Pain Level 5 Subjective Subjective Patient received in chair at bedside and agreeable to participate with PT. States his L foot/LE is painful. Therapeutic Exercise Time Therapeutic Exercise 21 Minutes (minutes) Therapeutic Exercise 1 Units Therapeutic Exercise Treatment Therapeutic Exercise Patient performed THA LE ther ex in sitting with legs Treatment elevated. THA ankle pumps, quad sets, glut sets, MIN A for THA SLR x 10 reps. Sitting with feet on floor for LAQ's (MIN A for L LE), MRE for hip ABD/ADD x 10 reps each. To promote LE strengthening for safe standing and walking. Therapeutic Activity Time Therapeutic Activity 10 Minutes (minutes) Therapeutic Activity 1 Units Therapeutic Activity Treatment Chair Transfer Moderate Assist,2 Person Assist Ability Therapeutic Activity Patient requires MOD A to lean forward into upright Comments sitting. Verbal cues for safe hand placement on arm rests of chair during transfers. Sit to stand to 2WW is MOD A +2, heavy verbal cues to stand upright vs FWD trunk flexion. Several verbal cues for light weight bearing on L heel when standing. Patient stood ~30s with CGA +2. Patient verbalizes fatigue and requests to sit. Stand to sit is MIN A +2 with poor control of descent to chair. Patient asked if would like to stand again and replies I just don't think I can do it . Patient reclined in chair w/ pillow under L LE to for pressure relief of heel. CBWR and all needs met. Total Physical Therapy Time Total Therapy 31 Minutes Total Physical 2 Therapy Units Summary Daily Note Summary Patient fatigues with physical exertion and reports L foot pain throughout treatment. Verbalizes increased L foot pain post treatment. Patient is slow with functional movements. Patient at risk for falls secondary to decreased strength and functional mobility . Patient would benefit from SNF placement to address functional deficits upon discharge.
--- NOTE | 2025-02-03 13:54 | SWNOTE1 ---
SW spoke to pt's Mary in regards to possible discharge tomorrow. Pt was sleeping in bed. SW spoke to her about transportation and that [facility] are not available for wheelchair transport over the weekend. SW can speak with nurse to see if we can assist pt in private vehicle and [facility] can assist getting him out of private vehicle. Pt woke up and stated that he is not able to do that. SW let them know the other option would be to set up stretcher/ambulance transport. SW did let pt and know that SW can not guarantee that insurance will pay for it, but it will get billed to insurance. Pt's voiced understanding and they are alright with stretcher transport. Pt's did ask about medications and SW let her know that DC med rec is sent to [facility] and they provide the medications. She also requested, if possible, for pt to get a shower prior to going to [facility]. SW to speak with nurse. No further questions at this time. SW let nurse know about transport and about pt's requesting pt get shower prior to discharge.
[2025-02-03] MEDS: METOCLOPRAMIDE HCL 10 MG TABLET 5 MG PO ×2 (14:26→21:29)
[2025-02-03] MEDS: TORSEMIDE 20 MG TABLET PO (16:40)
[2025-02-03] MEDS: HYDROMORPHONE HCL 0.5 MG/0.5 ML SYRINGE IVP (16:40)
[2025-02-03] MEDS: CYCLOBENZAPRINE HCL 10 MG TABLET PO (16:40)
[2025-02-03] MEDS: BISACODYL 5 MG TABLET 10 MG PO (21:29)
[2025-02-03] MEDS: SENNOSIDES/DOCUSATE SODIUM 1 TAB TABLET PO (21:29)
[2025-02-03] MEDS: TAMSULOSIN HCL 0.4 MG CAPSULE PO (21:31)
--- NOTE | 2025-02-03 22:33 | PC.NURSE ---
Dressing change to LLE according to orders. patient tolerated well.
[2025-02-04] VITALS (21 sets, daily range): BP systolic 121–162; BP diastolic 53–75; PULSE 42–94; TEMP 36.7–37.4; O2SAT 89–97
[2025-02-04] MEDS: OXYCODONE HCL 5 MG TABLET 2.5 MG PO ×3 (04:48→19:44)
[2025-02-04] MEDS: METOCLOPRAMIDE HCL 10 MG TABLET 5 MG PO (05:25)
[2025-02-04] MEDS: NYSTATIN 15 GM POWDER 1 APPLIC TOPICAL ×3 (05:25→21:19)
[2025-02-04 06:28] LABS: Hematocrit 30.2 % (42.0-54.0); Hemoglobin 10.2 g/dL (14.0-18.0); Mean Corpuscular HGB Conc 33.8 g/dL (29.9-35.2); Mean Corpuscular Hemoglobin 30.4 pg (25.9-34.0); Mean Corpuscular Volume 89.9 fL (80.0-94.0); Platelet Count 291 10^3/uL (150-450); Red Blood Count 3.36 10^6/uL (4.70-6.10); White Blood Count 19.2 10^3/uL (4.0-11.0)
[2025-02-04 06:36] LABS: Anion Gap 12.6; Calcium 8.5 mg/dL (8.5-10.1); Carbon Dioxide 26.2 mmol/L (21.0-32.0); Chloride 98 mmol/L (98-107); Estimated GFR (African America 37 (>=60 mL/min/1.73m^2); Estimated GFR (Non-African Ame 31 (>=60 mL/min/1.73m^2); Glucose 248 mg/dL (74-106); Potassium 3.8 mmol/L (3.5-5.1); Sodium 133 mmol/L (136-145)
[2025-02-04 06:56] LABS: Blood Urea Nitrogen 81.0 mg/dL (7.0-18.0)
[2025-02-04] MEDS: 0.9 % SODIUM CHLORIDE 1,000 ML 70 ML IV ×2 (08:19→22:49)
[2025-02-04] MEDS: INSULIN ASPART 300 UNIT/3 ML PEN SUBQ ×4 (08:20→21:19)
[2025-02-04] MEDS: ENOXAPARIN SODIUM 40 MG/0.4 ML SYRINGE SUBQ (08:21)
[2025-02-04] MEDS: INSULIN GLARGINE 300 UNIT/3 ML INSULN.PEN 35 UNIT SQ ×2 (08:21→21:20)
[2025-02-04] MEDS: POLYETHYLENE GLYCOL 3350 17 GM POWDER PACKET PO (08:21)
[2025-02-04] MEDS: SENNOSIDES/DOCUSATE SODIUM 1 TAB TABLET PO ×2 (08:22→21:19)
[2025-02-04] MEDS: DOCUSATE SODIUM 100 MG CAPSULE 200 MG PO ×2 (08:22→21:19)
[2025-02-04] MEDS: ATORVASTATIN CALCIUM 10 MG TABLET PO (08:22)
[2025-02-04] MEDS: ALLOPURINOL 100 MG TABLET PO ×2 (08:22→21:18)
[2025-02-04] MEDS: CLOPIDOGREL BISULFATE 75 MG TABLET PO (08:22)
[2025-02-04] MEDS: CARVEDILOL 6.25 MG TABLET PO ×2 (08:22→21:19)
[2025-02-04] MEDS: FAMOTIDINE 20 MG TABLET PO (08:22)
[2025-02-04] MEDS: HYDROMORPHONE HCL 0.5 MG/0.5 ML SYRINGE IV ×2 (09:46→16:41)
--- NOTE | 2025-02-04 09:50 | REH.PTDLY ---
Physical Therapy Daily Note PT Daily Note/Assess Start: 01/31/25 10:36 Freq: Status: Active Protocol: Document 02/04/25 09:43 ADRIANA (Rec: 02/04/25 09:50 [id number] Physical Therapy Daily Note/Assessment Time In 09:08 Time Out 09:38 Pain Level 5 Pain Level 6 [address] DrMaribel just leaving pt room. Pt to stay another day or two due to infection states. Pt is fatigued and has pain this morning in L calf, spasms pt states. Pain meds have already been given Therapeutic Exercise 8 Minutes (minutes) Therapeutic Exercise 1 Units Therapeutic Exercise Instructed in B LE AAROM exs 10x ea with verbal cues Treatment needed for pt to stay on task. Pt able to move R LE better compared to L LE. Pt has increased discomfort with palpation to L LE. Exs included AP, QS, heel slides, and abd slides. Therapeutic Activity 18 Minutes (minutes) Therapeutic Activity 1 Units Therapeutic Activity Pt requires Max A x1 to transfer from supine to sit Comments with several cues given and pt needing to stop at times due to pain. Cues for pt to scoot to EOB. Pt sat sitting bedside with increase in pain and fatigue. Pt struggles to maintain upright posture, wants to lean on RW. Pt sat for 5 mins bedside with cues needed for posture. Sit to stand transfers Max A x2 today. Once standing pt able to stand with Min A x1, cues for side steps to HOB with limited weight bearing on L LE, cues for heel touch. Pt takes 4 small steps and needs to sit back down. Max Ax2 for sit to supine transfer and positioning in bed. Total Therapy 26 Minutes Total Physical 2 Therapy Units Daily Note Summary Pt has increased pain and fatigue today. Pt moans alot throughout rx due to discomfort and cues needed to stay on task. Pt requires Max A x2 with transfers today as well. Pt will need SNF stay at [place] to regain functional mobility and strength as he is unable to care for himself at this time.
--- NOTE | 2025-02-04 10:40 | P.PN_ITS ---
Progress Note: Subjective Subjective Interval history: No changes since yesterday. He does not feel dizzy anymore. No chest pain. No abdominal pain. Patient continues to be constipated. No bowel movement for 6 days. Exam Narrative Exam Narrative: Patient appears to be much more comfortable than yesterday. Less pain and discomfort. The left leg is wrapped from the mid lopez down to the toes. No distress. Chest is clear, heart is regular. Abdomen is soft Constitutional Vital Signs, click to edit/add: Last Vital Signs Temp 98.4 F 02/04/25 07:43 Pulse 71 02/04/25 09:55 Resp 18 02/04/25 07:45 BP 121/75 02/04/25 07:43 Pulse Ox 97 02/04/25 09:51 O2 Del Method Nasal Cannula 02/04/25 09:51 O2 Flow Rate 2 02/04/25 09:51 FiO2 40 02/02/25 07:49 Progress Note: Objective Labs Labs: Short CBC 02/04/25 Range/Units 06:07 WBC 19.2 H (4.0-11.0) 10^3/uL Hgb 10.2 L (14.0-18.0) g/dL Hct 30.2 L (42.0-54.0) % Plt Count 291 (150-450) 10^3/uL BMP 02/04/25 06:07 Sodium 133 L Potassium 3.8 Chloride 98 Carbon Dioxide 26.2 BUN 81.0 H* Creatinine 2.16 H Glucose 248 H Calcium 8.5 Progress Note: A&P Assessment and Plan (1) Left leg cellulitis: (2) Leg edema, left: (3) CKD stage 4 due to type 2 diabetes mellitus: (4) CAD (coronary artery disease): Qualifiers: Coronary Disease-Associated Artery/Lesion type: [place] artery [place] vs. transplanted heart: [place] heart Associated angina: without angina Qualified Code(s): I25.10 - Atherosclerotic heart disease of [place] coronary artery without angina pectoris (5) HTN (hypertension): Qualifiers: Hypertension type: renovascular hypertension Qualified Code(s): I15.0 - Renovascular hypertension (6) Diabetes: Qualifiers: Diabetes mellitus type: type 2 Diabetes mellitus longterm insulin use: with exterminator termite use Diabetes mellitus complication status: with kidney complications Diabetes mellitus complication detail: with chronic kidney disease Chronic kidney disease stage: stage 4 (GFR 15-29) Qualified Code(s): E11.22 - Type 2 diabetes mellitus with diabetic chronic kidney disease; N18.4 - Chronic kidney disease, stage 4 (severe); Z79.4 - [facility] (current) use of insulin (7) Sepsis: (8) Bacteremia: Plan Severe sepsis present on admission associated with hypotension, borderline septic shock, stabilized. Serratia bacteremia. Repeat blood culture is negative. Left ankle and foot cellulitis, cannot exclude the possibility of abscess formation, osteomyelitis and/or septic ankle, status post incision and drainage. Patient had received intravenous Ancef. Antibiotic switched to ertapenem to cover Serratia Serratia came back sensitive to ceftriaxone. Switching ertapenem to ceftriaxone. Patient had received 1 vancomycin dose in the emergency room department. Additional vancomycin dose on 01/31 and on 02/02 pending culture report. Dose adjusted for NEO Patient did not receive 30 mL/kg IV fluid infusion due to CKD. Continue to hold diuretics at this time Completed IV fluid infusion. Blood pressure is stabilizing. Repeat blood culture on 01/31. Result is pending. I requested MRI of the ankle and foot rule out abscess and osteomyelitis also to see if there is any radiological evidence of septic joint. MRI could not be done pending further investigation of his cardiac stent and aortic valve replacement. Status post incision and drainage. Please refer to podiatry procedure note for details. No evidence of septic joint as per Dr. Goyal Acute renal failure, resolved CKD stage IV. Kidney function is approaching baseline. Acute element over the last 24 hours secondary to sepsis and bacteremia. Rule out ATN. Patient also had urinary retention. More than 1000 mL of urine det ected on the bladder scan. Diaz catheter was placed Continue to hold diuretics Kidney function reached baseline which is consistent with stage IV Requested UA to see if there is any RBC or protein. UA does not show any RBC or protein to suggest acute glomerulonephritis or ATN. Ultrasound kidney rule out obstructive uropathy. Ultrasound is negative for hydronephrosis or obstructive uropathy Continue Diaz. Urinary retention. More than 1000 mL of retention noted. Diaz catheter was placed and I started patient on Flomax. Continue Flomax Trial of Diaz removal in 3-5 days. Urological investigation may be needed this may include but not limited to prostate exam, prostate ultrasound, cystoscopy, urodynamic study to be done in the outpatient setting by urology team. Diabetes Hyperglycemia, fair control Increase Lantus dose to 30 units twice a day Continue long-acting and sliding scale coverage. Titrate to keep blood sugar between 125 and 180. Hypertension. Blood pressure is soft secondary to above. Hold diuretics. Reduce the dose of Coreg. Hold home losartan. IV fluid infusion Avoid aggressive IV fluid infusion due to his CKD and increased risk of fluid overload. Edema of the left leg from the mid calf down to the ankle Requested venous study rule out DVT. Continue heparin for DVT prophylaxis. Pain, severe pain Patient is on Dilaudid and oxycodone. Continue Tylenol. Cannot use NSAID due to NEO/CKD. Cautious use of opiate due to kidney failure. At the same time I do not want patient to suffer. Consider the use of Suboxone. Active sleep apnea. Desaturation while sleeping BiPAP was applied yesterday. His will bring his CPAP machine from home. Constipation, probable ileus secondary to acute illness as well as the use of opiates. Continue stool softeners and stimulant. Added 1 dose of Relistor and 3 doses of Reglan. Additional suppository added Functional impairment secondary to acute metabolic issues as listed above specifically related to his left ankle cellulitis. PT OT eval and treatment Patient may qualify to go to a skilled care for short period of time Will discuss with case management. Chronic medical conditions not listed above, incidental findings seen on labs and imaging. These would need to be addressed. Could be addressed when time and condition are appropriate. Could be addressed in the outpatient setting by PCP collaboration with other needed outpatient providers. I discussed case with his at the bedside Urinary Catheter Management Urinary Catheter Management Urethral: Cath placed during this visit: yes Urethral indwelling: No Insertion date: 01/30/25 Insertion time: 13:16
[2025-02-04] MEDS: ACETAMINOPHEN 325 MG TABLET 650 MG PO (15:20)
[2025-02-04] MEDS: BISACODYL 5 MG TABLET 10 MG PO (19:44)
[2025-02-04] MEDS: TAMSULOSIN HCL 0.4 MG CAPSULE PO (21:19)
[2025-02-05] VITALS (19 sets, daily range): BP systolic 115–136; BP diastolic 61–73; PULSE 18–88; TEMP 36.4–37.6; O2SAT 76–96
[2025-02-05] MEDS: NYSTATIN 15 GM POWDER 1 APPLIC TOPICAL ×3 (05:25→21:57)
[2025-02-05] MEDS: OXYCODONE HCL 5 MG TABLET 2.5 MG PO ×4 (05:25→15:17)
[2025-02-05 06:54] LABS: Anion Gap 12.8; Calcium 8.8 mg/dL (8.5-10.1); Carbon Dioxide 24.7 mmol/L (21.0-32.0); Chloride 101 mmol/L (98-107); Estimated GFR (African America 33 (>=60 mL/min/1.73m^2); Estimated GFR (Non-African Ame 27 (>=60 mL/min/1.73m^2); Glucose 156 mg/dL (74-106); Potassium 3.5 mmol/L (3.5-5.1); Sodium 135 mmol/L (136-145)
[2025-02-05 07:00] LABS: Blood Urea Nitrogen 95.0 mg/dL (7.0-18.0)
[2025-02-05] MEDS: ENOXAPARIN SODIUM 40 MG/0.4 ML SYRINGE SUBQ (09:13)
[2025-02-05] MEDS: INSULIN GLARGINE 300 UNIT/3 ML INSULN.PEN 35 UNIT SQ ×2 (09:13→21:58)
[2025-02-05] MEDS: POLYETHYLENE GLYCOL 3350 17 GM POWDER PACKET PO (09:13)
[2025-02-05] MEDS: CLOPIDOGREL BISULFATE 75 MG TABLET PO (09:14)
[2025-02-05] MEDS: DOCUSATE SODIUM 100 MG CAPSULE 200 MG PO ×2 (09:14→21:56)
[2025-02-05] MEDS: SENNOSIDES/DOCUSATE SODIUM 1 TAB TABLET PO ×2 (09:14→21:57)
[2025-02-05] MEDS: FAMOTIDINE 20 MG TABLET PO (09:14)
[2025-02-05] MEDS: ALLOPURINOL 100 MG TABLET PO ×2 (09:14→21:57)
[2025-02-05] MEDS: ATORVASTATIN CALCIUM 10 MG TABLET PO (09:14)
[2025-02-05] MEDS: CARVEDILOL 6.25 MG TABLET PO ×2 (09:14→21:57)
--- NOTE | 2025-02-05 11:17 | PM.PN ---
Progress Note: Subjective Subjective Interval history: No changes since yesterday. He does not feel dizzy anymore. No chest pain. No abdominal pain. Patient continues to be constipated. No bowel movement for 6 days. Exam Narrative Exam Narrative: Patient appears to be much more comfortable than yesterday. Less pain and discomfort. The left leg is wrapped from the mid lopez down to the toes. No distress. Chest is clear, heart is regular. Abdomen is soft Imaging of the right foot and ankle reviewed. Constitutional Vital Signs, click to edit/add: Last Vital Signs Temp 97.6 F 02/05/25 08:00 Pulse 84 02/05/25 09:58 Resp 18 02/05/25 08:00 BP 124/73 02/05/25 08:00 Pulse Ox 93 L 02/05/25 09:58 O2 Del Method Nasal Cannula 02/05/25 08:00 O2 Flow Rate 2 02/05/25 08:00 FiO2 40 02/02/25 07:49 Progress Note: Objective Labs Labs: BMP 02/05/25 06:06 Sodium 135 L Potassium 3.5 Chloride 101 Carbon Dioxide 24.7 BUN 95.0 H* Creatinine 2.44 H Glucose 156 H Calcium 8.8 Progress Note: A&P Assessment and Plan (1) Left leg cellulitis: (2) Leg edema, left: (3) CKD stage 4 due to type 2 diabetes mellitus: (4) CAD (coronary artery disease): Qualifiers: Coronary Disease-Associated Artery/Lesion type: [place] artery [place] vs. transplanted heart: [place] heart Associated angina: without angina Qualified Code(s): I25.10 - Atherosclerotic heart disease of [place] coronary artery without angina pectoris (5) HTN (hypertension): Qualifiers: Hypertension type: renovascular hypertension Qualified Code(s): I15.0 - Renovascular hypertension (6) Diabetes: Qualifiers: Diabetes mellitus type: type 2 Diabetes mellitus alf insulin use: with rat exterminator use Diabetes mellitus complication status: with kidney complications Diabetes mellitus complication detail: with chronic kidney disease Chronic kidney disease stage: stage 4 (GFR 15-29) Qualified Code(s): E11.22 - Type 2 diabetes mellitus with diabetic chronic kidney disease; N18.4 - Chronic kidney disease, stage 4 (severe); Z79.4 - [facility] (current) use of insulin (7) Sepsis: (8) Bacteremia: Plan Severe sepsis present on admission associated with hypotension, borderline septic shock, stabilized. Serratia bacteremia. Repeat blood culture is negative thus far.. Left ankle and foot cellulitis, cannot exclude the possibility of abscess formation, osteomyelitis and/or septic ankle, status post incision and drainage. Patient had received intravenous Ancef. Antibiotic switched to ertapenem to cover Serratia Serratia came back sensitive to ceftriaxone. Switching ertapenem to ceftriaxone. Patient had received 1 vancomycin dose in the emergency room department. Additional vancomycin dose on 01/31 and on 02/02 pending culture report. Dose adjusted for NEO Patient did not receive 30 mL/kg IV fluid infusion due to CKD. Continue to hold diuretics at this time Completed IV fluid infusion. Blood pressure is stabilizing. Repeat blood culture on 01/31. Result is pending. I requested MRI of the ankle and foot rule out abscess and osteomyelitis also to see if there is any radiological evidence of septic joint. MRI could not be done pending further investigation of his cardiac stent and aortic valve replacement. Status post incision and drainage. Please refer to podiatry procedure note for details. No evidence of septic joint as per Dr. Goyal Acute renal failure, resolved CKD stage IV. Kidney function is approaching baseline. Creatinine in 2001 was 1.5. In July 2024 it was 3.35. In October 2024 it was 1.63. When he came in creatinine was 3.13. Creatinine improved down to 2.4 but BUN continues to rise. Acute element over the last 24 hours secondary to sepsis and bacteremia. Rule out ATN. Patient also had urinary retention. More than 1000 mL of urine detected on the bladder scan. Diaz catheter was placed NEO could be related to ATN secondary to sepsis and hypotension on presentation. Ultrasound does not show any obstructive uropathy however patient is found to have a urinary retention required Diaz catheter insertion. Diaz catheter was removed yesterday morning however he retained more than 800 mL of urine so Diaz catheter was reinserted Noticeable inappropriate rise of BUN compared to creatinine. No evidence of the bleed. Hemoglobin is stable. Patient is not on cortisone. Patient is not on TPN Continue to monitor kidney function. Keep patient off IV fluid infusion. Consideration to resume diuretics. No urgent indication for hemodialysis no-kalemia, no acidosis however patient is uremic. I gave his update on his kidney function status. I informed her that if ATN is caused by sepsis or renal hypoperfusion on presentation it may take several weeks to returned back to baseline. Patient follows up with urologist at [place] and [facility]. is dissatisfied with the care that he had received at these 2 facilities. does not want him to be transferred out of [place] at this time. Urinary retention. More than 1000 mL of retention noted. Diaz catheter was placed and I started patient on Flomax. Continue Flomax Diaz catheter was removed yesterday but reinserted overnight due to retention more than 800 mL. Urological investigation may be needed this may include but not limited to prostate exam, prostate ultrasound, cystoscopy, urodynamic study to be done in the outpatient setting by urology team. Diabetes Hyperglycemia, fair control Increase Lantus dose to 30 units twice a day Continue long-acting and sliding scale coverage. Titrate to keep blood sugar between 125 and 180. Hypertension. Blood pressure is soft secondary to above. Hold diuretics. Reduce the dose of Coreg. Hold home losartan. IV fluid infusion Avoid aggressive IV fluid infusion due to his CKD and increased risk of fluid overload. Edema of the left leg from the mid calf down to the ankle Requested venous study rule out DVT. Continue Lovenox for DVT prophylaxis. Pain, severe pain Patient is on Dilaudid and oxycodone. Continue Tylenol. Cannot use NSAID due to NEO/CKD. Cautious use of opiate due to kidney failure. At the same time I do not want patient to suffer. Consider the use of Suboxone. Active sleep apnea. Desaturation while sleeping BiPAP was applied yesterday. His will bring his CPAP machine from home. Constipation, probable ileus secondary to acute illness as well as the use of opiates. Continue stool softeners and stimulant. Added 1 dose of Relistor and 3 doses of Reglan. Additional suppository added Functional impairment secondary to acute metabolic issues as listed above specifically related to his left ankle cellulitis. PT OT eval and treatment Patient may qualify to go to a skilled care for short period of time Will discuss with case management. Chronic medical conditions not listed above, incidental findings seen on labs and imaging. These would need to be addressed. Could be addressed when time and condition are appropriate. Could be addressed in the outpatient setting by PCP collaboration with other needed outpatient providers. I discussed case with his at the bedside Urinary Catheter Management Urinary Catheter Management Urethral: Cath placed during this visit: yes, but has since been removed by the nurse Urethral indwelling: No Insertion date: 02/05/25 Insertion time: 01:37 Removal date: 02/04/25 Removal time: 13:00
[2025-02-05] MEDS: TAMSULOSIN HCL 0.4 MG CAPSULE PO (21:56)
[2025-02-05] MEDS: BISACODYL 5 MG TABLET 10 MG PO (21:57)
[2025-02-05] MEDS: INSULIN ASPART 300 UNIT/3 ML PEN SUBQ (21:58)
[2025-02-06] VITALS (12 sets, daily range): BP systolic 118–144; BP diastolic 46–53; PULSE 62–81; TEMP 36.6–37.2; O2SAT 93–98
--- NOTE | 2025-02-06 03:17 | PC.NURSE ---
Patient put call light on stating he was dizzy. Vitals checked. BP 129/53 HR 69, 94% on 2L NC and Temp 99.0. Patient stated his mother had vertigo. Call light within reach and no other needs at this time
[2025-02-06] MEDS: NYSTATIN 15 GM POWDER 1 APPLIC TOPICAL (05:26)
[2025-02-06] MEDS: OXYCODONE HCL 5 MG TABLET 2.5 MG PO ×2 (05:45→12:46)
[2025-02-06 05:58] LABS: Hematocrit 26.4 % (42.0-54.0); Hemoglobin 8.9 g/dL (14.0-18.0); Mean Corpuscular HGB Conc 33.7 g/dL (29.9-35.2); Mean Corpuscular Hemoglobin 30.4 pg (25.9-34.0); Mean Corpuscular Volume 90.1 fL (80.0-94.0); Platelet Count 347 10^3/uL (150-450); Red Blood Count 2.93 10^6/uL (4.70-6.10); White Blood Count 20.7 10^3/uL (4.0-11.0)
[2025-02-06 06:07] LABS: Anion Gap 15.1; Calcium 8.5 mg/dL (8.5-10.1); Carbon Dioxide 22.5 mmol/L (21.0-32.0); Chloride 103 mmol/L (98-107); Estimated GFR (African America 31 (>=60 mL/min/1.73m^2); Estimated GFR (Non-African Ame 26 (>=60 mL/min/1.73m^2); Glucose 107 mg/dL (74-106); Potassium 3.6 mmol/L (3.5-5.1); Sodium 137 mmol/L (136-145)
[2025-02-06 06:13] LABS: Creatine Kinase 39 U/L (39-308)
[2025-02-06 06:18] LABS: Lactate/Lactic Acid 0.4 mmol/L (0.4-2.0)
[2025-02-06 06:21] LABS: Blood Urea Nitrogen 101.0 mg/dL (7.0-18.0)
[2025-02-06 07:18] LABS: Glucose Urine UA NEGATIVE (NEGATIVE)
[2025-02-06 07:43] LABS: Cast Seen? NONE SEEN #/LPF (NONE SEEN); Crystals Seen? None Seen #/HPF (None Seen); Urine Culture Indicated NO
[2025-02-06] MEDS: 0.9 % SODIUM CHLORIDE 500 ML 250 ML IV (07:44)
--- NOTE | 2025-02-06 08:05 | CM.NOTE ---
Rounds made with Dr. Bush, discussed with pt am labs and plan of care. Dr. Bush discussed with pt possible transfer to [facility] for nephrology. Pt verbalizes understanding and is in agreement with transfer. Dr. Bush will discuss plan of care with pt's .
[2025-02-06] MEDS: POLYETHYLENE GLYCOL 3350 17 GM POWDER PACKET PO (08:51)
[2025-02-06] MEDS: SENNOSIDES/DOCUSATE SODIUM 1 TAB TABLET PO (08:51)
[2025-02-06] MEDS: CLOPIDOGREL BISULFATE 75 MG TABLET PO (08:51)
[2025-02-06] MEDS: DOCUSATE SODIUM 100 MG CAPSULE 200 MG PO (08:51)
[2025-02-06] MEDS: ALLOPURINOL 100 MG TABLET PO (08:51)
[2025-02-06] MEDS: FAMOTIDINE 20 MG TABLET PO (08:51)
[2025-02-06] MEDS: ATORVASTATIN CALCIUM 10 MG TABLET PO (08:51)
[2025-02-06] MEDS: ENOXAPARIN SODIUM 40 MG/0.4 ML SYRINGE SUBQ (08:52)
[2025-02-06] MEDS: ACETAMINOPHEN 325 MG TABLET 650 MG PO (08:56)
--- NOTE | 2025-02-06 09:43 | P.DS_ITS ---
DS: Providers Provider Date of admission: 01/29/25 16:34 Primary care physician: Kelby Warner DO Consults: 01/29/25 16:25 Physical Therapy Eval and Treat Routine Reason for consultation: difficult ambulator Has provider been notified: No 01/30/25 08:17 Consult to Podiatry Routine Consulting Provider: Robinson Goyal Reason for consultation: Ankle cellulitis r/o spetic ankle joint 01/31/25 Occupational Therapy Eval and Treat Routine Reason for consultation: weakness DS: Diagnosis Discharge Diagnosis (1) Left leg cellulitis: (2) Leg edema, left: (3) CKD stage 4 due to type 2 diabetes mellitus: (4) CAD (coronary artery disease): Qualifiers: Coronary Disease-Associated Artery/Lesion type: [place] artery [place] vs. transplanted heart: [place] heart Associated angina: without angina Qualified Code(s): I25.10 - Atherosclerotic heart disease of [place] coronary artery without angina pectoris (5) HTN (hypertension): Qualifiers: Hypertension type: renovascular hypertension Qualified Code(s): I15.0 - Renovascular hypertension (6) Diabetes: Qualifiers: Diabetes mellitus type: type 2 Diabetes mellitus exterminator termite insulin use: with mcfp use Diabetes mellitus complication status: with kidney complications Diabetes mellitus complication detail: with chronic kidney disease Chronic kidney disease stage: stage 4 (GFR 15-29) Qualified Code(s): E11.22 - Type 2 diabetes mellitus with diabetic chronic kidney disease; N18.4 - Chronic kidney disease, stage 4 (severe); Z79.4 - exterminator termite (current) use of insulin (7) Sepsis: (8) Bacteremia: Plan As listed above, below and others that are not listed DS: Summary Hospital Course Hospital Course: Mr. Kerr is a 64-year-old gentleman who came in with pain and discomfort in the left foot and ankle. He was found to have the following: Severe sepsis present on admission associated with hypotension, borderline septic shock, stabilized.his blood pressure was in the 80s on presentation Serratia bacteremia. Repeat blood culture is negative thus far.. Left ankle and foot cellulitis, MRI does not show any osteomyelitis. Status post incision and drainage. Patient had received initial intravenous Ancef. Antibiotic switched to ertapenem to cover ESBL and anaerobes. Patient also had received 3 doses of vancomycin 1 g every 48 hours for possibility of MRSA. Blood culture came back positive for sensitive to ceftriaxone. Switching ertapenem to ceftriaxone. Patient had received 1 vancomycin dose in the emergency room department. Additional vancomycin dose on 01/31 and on 02/02 pending culture report. Culture came back positive for gram-negative organism, Serratia therefore last vancomycin dose was on 02/02. Continue ceftriaxone. Acute renal failure, NEO improved but now getting worse over the last 48 hours CKD stage IV. Kidney function is approaching baseline. Creatinine in 2001 was 1.5. In July 2024 it was 3.35. In October 2024 it was 1.63. When he came in creatinine was 3.13. Creatinine improved down to 2.4 but BUN continues to rise. Patient also had urinary retention. More than 1000 mL of urine detected on the bladder scan. Diaz catheter was placed NEO could be related to ATN secondary to sepsis and hypotension on presentation. Ultrasound does not show any obstructive uropathy however patient is found to have a urinary retention required Diaz catheter insertion. Diaz catheter was removed yesterday morning however he retained more than 800 mL of urine so Diaz catheter was reinserted Noticeable inappropriate rise of BUN compared to creatinine. No evidence of the bleed. Hemoglobin is stable. Patient is not on cortisone. Patient is not on TPN NEO hide improved but Getting worse over the last 48 hours despite ongoing IV fluid infusion up until Sunday 02/04 Serum eosinophil was negative. Request repeat differential Could be related to interstitial nephritis secondary to antibiotic Repeat UA is bland. Few RBC. No WBC, no protein, no casts, no shruthi Urine sodium level is 15. Kidney function and BUN continued to worsen despite IV fluid infusion on Thursday. Patient currently is in euvolemic state. Additional fluid challenge will be given today. I discussed this case with commercial account manager Dr. Gary who recommended to transfer patient to [facility] for nephrology evaluation and monitoring. Patient may end up on dialysis due to progressive uremia. Urinary retention. More than 1000 mL of retention noted. Diaz catheter was placed and I started patient on Flomax. Continue Flomax Diaz catheter was removed on 02/04 but reinserted overnight due to retention more than 800 mL. Urological investigation may be needed this may include but not limited to prostate exam, prostate ultrasound, cystoscopy, urodynamic study to be done in the outpatient setting by urology team. Diabetes Hyperglycemia, fair control Increase Lantus dose to 30 units twice a day Continue long-acting and sliding scale coverage. Titrate to keep blood sugar between 125 and 180. Hypertension. Blood pressure is soft secondary to above. Hold diuretics. Reduce the dose of Coreg. Hold home losartan. IV fluid infusion Avoid aggressive IV fluid infusion due to his CKD and increased risk of fluid overload. Edema of the left leg from the mid calf down to the ankle Requested venous study rule out DVT. Continue Lovenox for DVT prophylaxis. Pain, severe pain Patient is on Dilaudid and oxycodone. Continue Tylenol. Cannot use NSAID due to NEO/CKD. Cautious use of opiate due to kidney failure. At the same time I do not want patient to suffer. Consider the use of Suboxone. Active sleep apnea. Desaturation while sleeping BiPAP was applied yesterday. His will bring his CPAP machine from home. Constipation, probable ileus secondary to acute illness as well as the use of opiates. Continue stool softeners and stimulant. Added 1 dose of Relistor and 3 doses of Reglan. Additional suppository added Functional impairment secondary to acute metabolic issues as listed above specifically related to his left ankle cellulitis. PT OT eval and treatment Patient may qualify to go to a skilled care for short period of time Will discuss with case management. Chronic medical conditions not listed above, incidental findings seen on labs and imaging. These would need to be addressed. Could be addressed when time and condition are appropriate. Could be addressed in the outpatient setting by PCP collaboration with other needed outpatient providers. I discussed case with his at the bedside Time Spent with Patient Time attestation: Total time spent providing and/or coordinating discharge services: Exam Narrative Exam Narrative: Patient appears to be much more comfortable than yesterday. Less pain and discomfort. The left leg is wrapped from the mid lopez down to the toes. No distress. Chest is clear, heart is regular. Abdomen is soft Imaging of the right foot and ankle reviewed. Constitutional Vital Signs, click to edit/add: Last Vital Signs Temp 98.8 F 02/06/25 07:23 Pulse 81 02/06/25 08:00 Resp 18 02/06/25 07:23 BP 118/46 L 02/06/25 07:23 Pulse Ox 95 02/06/25 07:23 O2 Del Method Nasal Cannula 02/06/25 07:23 O2 Flow Rate 2 02/06/25 07:23 FiO2 40 02/02/25 07:49 DS: Data Data Completed and Pending Labs on day of discharge: Labs from last 24 hours 02/06/25 02/06/25 02/05/25 07:00 05:00 21:06 WBC 20.7 H RBC 2.93 L Hgb 8.9 L Hct 26.4 L MCV 90.1 MCH 30.4 MCHC 33.7 RDW 14.1 Plt Count 347 MPV 10.8 Sodium 137 Potassium 3.6 Chloride 103 Carbon Dioxide 22.5 Anion Gap 15.1 BUN 101.0 H* Creatinine 2.52 H Est GFR ( Amer) 31 L Est GFR (Non-Af Amer) 26 L BUN/Creatinine Ratio 40.1 Glucose 107 H Lactate 0.4 Calcium 8.5 Total Creatine Kinase 39 C-Reactive Protein 17.89 H Urine Color Lt. yellow Urine Clarity Clear Urine pH 5.5 Ur Specific [place] 1.010 Urine Protein Negative Urine Glucose (UA) Negative Urine Ketones Negative Urine Occult Blood Moderate A Urine Nitrite Negative Urine Bilirubin Negative Urine Urobilinogen 0.2 Ur Leukocyte Esterase Negative Urine RBC 5-10 A Urine WBC None seen Ur Squamous Epith Cells Few A Urine Crystals None seen Urine Bacteria Trace A Urine Casts None seen Urine Mucus None seen Ur Culture Indicated? No Ur Random Sodium POC Glucose 157 H 02/05/25 02/05/25 02/05/25 16:15 11:41 11:35 WBC RBC Hgb Hct MCV MCH MCHC RDW Plt Count MPV Sodium Potassium Chloride Carbon Dioxide Anion Gap BUN Creatinine Est GFR ( Amer) Est GFR (Non-Af Amer) BUN/Creatinine Ratio Glucose Lactate Calcium Total Creatine Kinase C-Reactive Protein Urine Color Urine Clarity Urine pH Ur Specific [place] Urine Protein Urine Glucose (UA) Urine Ketones Urine Occult Blood Urine Nitrite Urine Bilirubin Urine Urobilinogen Ur Leukocyte Esterase Urine RBC Urine WBC Ur Squamous Epith Cells Urine Crystals Urine Bacteria Urine Casts Urine Mucus Ur Culture Indicated? 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
[2025-02-06] MEDS: INSULIN GLARGINE 300 UNIT/3 ML INSULN.PEN 35 UNIT SQ (10:38)
--- NOTE | 2025-02-06 10:39 | SWNOTE1 ---
SW spoke to pt's and son in the hallway. Family was under the impression that pt was being discharged to [place] today. They were not here when doctor rounded. SW advised that the plan is to transfer pt to higher level of care, another hospital. SW did advise that SW will reach out to physician to see if he can come speak with family. Family in agreement. Pt also has another son that lives in [place] who works for hospital administration. Pt's asked if he could be on pt's HIPAA form so that the nurse can speak with him and he can have access to pt's medical records. SW asked if pt had a HCPOA? Pt's was not sure and thought he may have filled one out at a hospital. SW to check records. It is prefered that the hospital have one point of contact versus calling all family members when there is an update. She voiced understanding. DINESH did avise that we do have an online portal that can be set up for pt if she is interested in that. Pt's and son would like information on this. DINESH provided them with a ehealth chart pamphlet. Pt's son voiced they will try to set it up and will let SW know if they have any further questions. DINESH messaged the physician family request of speaking with him.
--- NOTE | 2025-02-06 11:53 | CM.NOTE ---
Called [facility] to imitate transfer of pt, Dr. Bush has spoke with raw cheese worker and hospitalist.
--- NOTE | 2025-02-06 12:03 | SWNOTE1 ---
SW stopped back down and spoke to pt's . Physical therapy in room working with patient. Pt's voiced the physician did come and speak with her and pt is being transferred to [facility]. She was able to send updates to her son Jeff in [place]. She has not signed up for the [facility] chart yet, but she will let SW know if she has any issues.
--- NOTE | 2025-02-06 12:08 | P.EN_ITS ---
Event Note Event Note: I discussed his kidney failure with the bale sewer Dr Gary. I gave him update on his presentation, treatment plan, imaging, UA and blood tests. Remotely he did not have further recommendation other than recommendation to transfer him to [facility] to evaluate his condition and to proceed with additional diagnostic and therapeutic intervention as deemed to be appropriate. I discussed this with the patient, his and his son at the bedside. All are in agreement to proceed and transfer him to [facility]. I discussed this case with my colleague Dr. Swartz. She accepted him to be admitted under her service to facilitate additional nephrology, infectious and podiatry care.
--- NOTE | 2025-02-06 12:27 | PT.DAILY ---
Physical Therapy Daily Note PT Daily Note/Assess Start: 01/31/25 10:36 Freq: Status: Active Protocol: Document 02/06/25 12:24 [facility]MA (Rec: 02/06/25 12:27 [facility]MA [id number]) Physical Therapy Daily Note/Assessment Time In/Time Out Time In 11:00 Time Out 11:40 Pain In Pain N/A Pain Out Pain N/A Subjective Subjective Pt sitting in BS chair upon arrival. Wishes to get back into bed. Therapeutic Exercise Time Therapeutic Exercise 5 Minutes (minutes) Therapeutic Exercise 0 Units Therapeutic Exercise Treatment Therapeutic Exercise Pt performs bilat LE AP, LAQ, marches and add squeezes Treatment 10x to improve strength and functional mobility prior to transfer. Therapeutic Activity Time Therapeutic Activity 20 Minutes (minutes) Therapeutic Activity 2 Units Therapeutic Activity Treatment Bed Mobility Ability Maximum Assist,2 Person Assist Chair Transfer Maximum Assist,2 Person Assist Ability Therapeutic Activity Sit>stand attempts 3x but unable to stand fully erect Comments with MaxA+2. Carla steady brought to room MaxA+2 with use of chair pad to lift bottom high enough to get carla steady arms under him. Pt transfers using carla steady. Sit>supine MaxA+2. MaxA to roll to L side to prop pillow under him to avoid pressure sores. Pt remains supine with nursing present. Total Physical Therapy Time Total Therapy 25 Minutes Total Physical 2 Therapy Units Summary Daily Note Summary Decline in transfer ability due to weakness and pain
== END 2025-02-06 14:47 | disposition short-term general hospital (02) | DRG 871 ==
LOC: ER 16:10 → MS 23:37
PROVIDERS: Hospitalist; Podiatrist Foot & Ankle Surgery; Admitting Provider Internal Medicine; Emergency Provider Student in an Organized Health Care Education/Training Program; PCP Internal Medicine; Visit Provider Internal Medicine
PROC: 0J9R3ZZ Drainage of Left Foot Subcutaneous Tissue and Fascia, Percutaneous Approach (ICD-10-PCS; principal; 2025-01-31 11:30)
DX: A41.53 Sepsis due to Serratia (principal); N17.0 Acute kidney failure with tubular necrosis; R65.21 Severe sepsis with septic shock; L03.116 Cellulitis of left lower limb; E87.20 Acidosis, unspecified; N18.4 Chronic kidney disease, stage 4 (severe); I13.0 Hypertensive heart and chronic kidney disease with heart failure and stage 1 through stage 4 chronic kidney disease, or unspecified chronic kidney disease; K56.7 Ileus, unspecified; L02.612 Cutaneous abscess of left foot; R65.20 Severe sepsis without septic shock; Z79.4 Long term (current) use of insulin; I50.9 Heart failure, unspecified; E11.22 Type 2 diabetes mellitus with diabetic chronic kidney disease; I25.10 Atherosclerotic heart disease of native coronary artery without angina pectoris; Z89.412 Acquired absence of left great toe; Z95.5 Presence of coronary angioplasty implant and graft; I15.0 Renovascular hypertension; R11.0 Nausea; Z86.73 Personal history of transient ischemic attack (TIA), and cerebral infarction without residual deficits; Z79.899 Other long term (current) drug therapy; S90.425A Blister (nonthermal), left lesser toe(s), initial encounter; X58.XXXA Exposure to other specified factors, initial encounter; R33.9 Retention of urine, unspecified; Z95.2 Presence of prosthetic heart valve; M25.572 Pain in left ankle and joints of left foot; E11.65 Type 2 diabetes mellitus with hyperglycemia; R60.0 Localized edema; K59.00 Constipation, unspecified; T50.7X5A Adverse effect of analeptics and opioid receptor antagonists, initial encounter; G47.33 Obstructive sleep apnea (adult) (pediatric)
CPT/HCPCS: 36415; 51702; 51798; 64450; 71045; 73590; 73718; 73721; 76775; 76942; 80048; 80053; 81001; 82550; 82948; 83036; 83605; 84300; 85007; 85025; 85027; 86140; 87040; 87070; 87075; 87077; 87102; 87116; 87150; 87186; 87205; 87206; 93005; 93971; 94660; 94761; 96365; 97110; 97116; 97162; 97165; 97530; 97535; 99285; 99999; J0665; J0690; J0696; J1100; J1171; J1335; J1644; J1650; J2212; J2250; J2405; J2704; J3373; P9046